=== PATIENT | male | born 1975 | race Caucasian/White ===

== ENCOUNTER 2018-07-13 17:00 | Outpatient (REF) | payer OTHER, SELFPAY ==
[2018-07-13 19:20] LABS: ALT 32 U/L (12-78); AST 6 U/L (15-37); Albumin 3.9 g/dL (3.4-5.0); Alkaline Phosphatase 94 U/L (46-116); Anion Gap 11.3 mmol/L (3-11); BUN 18 mg/dL (7-18); Bilirubin, Total 0.7 mg/dL (0.2-1.0); CO2 26.7 mmol/L (21.0-32.0); CREATININE 1.12 mg/dL (0.70-1.30); Calcium 9.8 mg/dL (8.5-10.1); Chloride 101 mmol/L (98-107); Glucose 321 mg/dL (70-100); Potassium 4.6 mmol/L (3.5-5.1); Sodium 139 mmol/L (136-145); Total Protein 7.5 g/dL (6.4-8.2)
== END 2018-07-13 17:20 ==
LOC: NCHCN 17:00
PROVIDERS: PCP Nurse Practitioner Family; Visit Provider Nurse Practitioner Family
DX: E11.8 Type 2 diabetes mellitus with unspecified complications (principal)
CPT/HCPCS: 80053

== ENCOUNTER 2018-08-10 07:54 | Outpatient (REF) | payer OTHER, SELFPAY ==
[2018-08-10 13:42] LABS: Cholesterol 241 mg/dL (50-200); HDL Cholesterol 27 mg/dL (40-60); Triglyceride 668 mg/dL (30-150)
[2018-08-10 14:04] LABS: LDL CHOLESTEROL 100 mg/dL (<100)
== END 2018-08-10 08:14 ==
LOC: NCHCN 07:54
PROVIDERS: PCP Nurse Practitioner Family; Visit Provider Nurse Practitioner Family
DX: E11.8 Type 2 diabetes mellitus with unspecified complications (principal); Z79.4 Long term (current) use of insulin; E78.5 Hyperlipidemia, unspecified; I10 Essential (primary) hypertension
CPT/HCPCS: 80061; 83721

== ENCOUNTER 2020-07-14 16:27 | Outpatient (REF) | payer BC, SELFPAY ==
[2020-07-14 18:40] LABS: C-Reactive Protein 0.07 mg/dL (0.0-0.3)
[2020-07-14 18:45] LABS: ESR 33 mm/hr (0-15)
[2020-07-15 16:27] LABS: Rheumatoid Factor <8.6 IU/mL (<12.0)
[2020-07-16 14:40] LABS: ANA Interpretation Negative (Negative)
== END 2020-07-14 16:28 | disposition home or self-care (01) ==
LOC: NCHCN 16:27
PROVIDERS: PCP Family Medicine; Visit Provider Nurse Practitioner Family
DX: M13.80 Other specified arthritis, unspecified site (principal); M25.50 Pain in unspecified joint
CPT/HCPCS: 85652; 86038; 86140; 86431

== ENCOUNTER 2021-09-07 12:52 | Emergency (ER) | payer BC, SELFPAY ==
[2021-09-07] VITALS (12 sets, daily range): BP systolic 79–128; BP diastolic 39–80; PULSE 71–108; RESP 15–23; TEMP 36.6; O2SAT 93–98
--- NOTE | 2021-09-07 13:15 | RT.EKG_ITS ---
APPROVED REPORT Exam: Resting ECG Reason for Exam: nausea,vomiting Patient Location: E HR:108 bpm ECG Measurements Heart Rate 108 AXIS LA 169 P 51 QRSd 89 QRS 86 QT 312 T 9 QTc 418 Conclusion Sinus tachycardia...rate> 99. Sinus. Normal axis. No STEMI. I have reviewed and interpreted ECG and agree with software generated interpretation.
[2021-09-07 14:02] LABS: Abs Immature Grans 0.06 10^3/uL (0.0-0.06); Absolute Basophil Count 0.02 10^3/uL (0.0-0.2); Absolute Eosinophil Count 0.13 10^3/uL (0.0-0.7); Absolute Monocyte Count 0.88 10^3/uL (0.1-0.8); Absolute Neutrophil Count 14.18 10^3/uL (1.2-6.7); Basophils % 0.1; Eosinophils % 0.8; HCT 38.6 % (40.0-50.0); HGB 11.7 g/dL (13.5-17.5); Immature Grans % 0.4; MCHC 30.3 % (32.0-36.0); MCV 66 fL (80-95); MPV 10.7 fL (8.0-11.0); Monocytes % 5.5; Neutrophils % 88.2; Platelet Count 284 10^3/uL (130-400); RBC 5.84 10^6/uL (4.36-5.78); RDW 18.7 % (11.8-14.1); RDW-SD 41.1 fL; WBC 16.08 10^3/uL (4.4-10.8)
[2021-09-07] MEDS: Ondansetron 4 MG/2 ML VIAL IVP (14:12)
[2021-09-07] MEDS: Normal Saline 1,000 ML 1000 ML IV ×3 (14:12→17:07)
[2021-09-07 14:21] LABS: Anisocytosis 1+; Diff Comment RBC Morph Reviewed; Hypochromasia 1+
[2021-09-07 14:22] LABS: Microcytosis 2+; Poikilocytes 1+; Polychromasia Present
[2021-09-07 14:28] LABS: ALT 43 U/L (16-63); AST 19 U/L (15-37); Albumin 3.6 g/dL (3.4-5.0); Alkaline Phosphatase 74 U/L (46-116); BUN 36 mg/dL (7-18); Bilirubin, Total 0.7 mg/dL (0.2-1.0); CREATININE 1.7 mg/dL (0.70-1.30); Calcium 9.4 mg/dL (8.5-10.1); Chloride 106 mmol/L (98-107); Estimated GFR 44.21 (mL/min/1.73m2); Glucose 114 mg/dL (74-106); Magnesium 1.9 mg/dL (1.8-2.4); Potassium 5.5 mmol/L (3.5-5.1); Sodium 140 mmol/L (136-145); Total Protein 7.6 g/dL (6.4-8.2); Troponin I < 50 ng/L (<or=60)
--- NOTE | 2021-09-07 14:35 | ED.GENADUL_ITS ---
Discharge Plan Disposition Patient Disposition: HOME Condition: Improving Discharge Details Clinical Impression: Gastroenteritis, Anemia Primary Care Provider: Bandar Hahn ED Provider: Antoni Roque Home Meds and New Rx's Prescriptions: No Action citalopram 40 MG tablet 40 mg PO DAILY enalapril maleate 20 MG tablet 20 mg PO DAILY clopidogrel 75 mg tablet 1 tab PO DAILY Label Comments: TAKE 1 TABLET BY MOUTH ONCE DAILY insulin lispro 100 unit/mL insulin pen 20 - 50 unit SUBCUT .PER MEAL Label Comments: INJECT 20 TO 50 UNITS SUBCUTANEOUSLY DIRECTED UP TO THREE TIMES A DAY BEFORE MEALS. KEEP APPOINTMENT FOR FURTHER REFILLS. Levemir FlexTouch U-100 Insuln 100 unit/mL (3 mL) insulin pen 30 unit SUBCUT .QHS Label Comments: INJECT 30 UNITS SUBCUTANEOUSLY AT BEDTIME Trulicity 1.5 mg/0.5 mL pen injector SUBCUT .WEEKLY Label Comments: INJECT CONTENTS OF 1 SYRINGE SUBCUTANEOUSLY ONCE A WEEK aspirin 81 mg Tablet 81 mg PO .QHS Discharge Instructions Instructions: Gastroenteritis (ED), Anemia (ED) Additional Instructions: With your symptoms it is very important that you stay well-hydrated as this will help improve your lab abnormalities as noted. Feel free to return to the emergency department if you develop significant fever chills, focal or worsening abdominal pain, blood or mucus in your stools, vomiting blood, or intolerance to intake of fluids. We have put in a referral for you to follow-up with your primary care provider for reassessment and recheck of some of your lab abnormalities. Stand Alone Forms: Work Release Referrals: Bandar Hahn [Primary Care Provider] - 3 days Discharge Data Discharge Date/Time-TO BE ENTERED AT DEPARTURE: 09/07/21 19:02 Medical Decision Making <GLENIS Vieyra - Last Filed: 09/07/21 15:54> This is a 45-year-old gentleman, past medical history of RI, insulin-dependent diabetic, on Plavix daily presenting for what he describes as nausea, vomiting, diarrhea that began over the past day or so, questions if he ate bad stirfry. Was seen in the office of his PCP and sent to the ER for further evaluation. Clinically he occasionally dry heaves but otherwise appears well, nontoxic. Plan is to obtain IV access, give IV fluid, Zofran and laboratory values. Given his history of RI and history of diabetes this could be a ACS equivalent although low suspicion. Patient denies history of DKA. Differential is wide and includes DKA, food poisoning, infectious process, ACS, hypoglycemia, etc. Initial laboratory values reveal a white blood cell count of 16.08. Abdomen is soft, nontender, he remains afebrile. Question of this is secondary to vomiting. Hemoglobin 11.7 hematocrit 38.6, no previous for comparison. He denies black tarry stools or bright red blood in his stools. Platelet count 284. Sodium 140, potassium 5.5, EKG without evidence of hyperkalemia. BUN 36 creatinine 1.7, GFR 44.21, well below his baseline. Consider DONAL versus dehydration. Glucose appropriate at 114. Anion gap of 8, low suspicion for DKA. Magnesium 1.9 LFTs unremarkable, troponin less than 50, COVID-negative. Given his leukocytosis we are awaiting a urinalysis and I will add on a chest x- ray Patient to receive a second dose of Zofran and a total of 3 L normal saline. At that time I believe a delta troponin, repeat CBC and CMP are indicated. Based upon repeat laboratory values and reassessment disposition of admission for potential DONAL versus discharge. Medical Records Medical records reviewed: Yes I reviewed the patient's medical records. Lab Data Lab results reviewed: Yes I reviewed the patient's lab results. Labs: Laboratory Tests Range/Units 09/07/21 09/07/21 09/07/21 13:50 13:50 14:40 WBC (4.4-10.8) 10^3/uL 16.08 H RBC (4.36-5.78) 10^6/uL 5.84 H Hgb (13.5-17.5) g/dL 11.7 L Hct (40.0-50.0) % 38.6 L MCV (80-95) fL 66 L MCH (27.0-33.0) pg 20.0 L MCHC (32.0-36.0) % 30.3 L RDW (11.8-14.1) % 18.7 H Plt Count (130-400) 10^3/uL 284 MPV (8.0-11.0) fL 10.7 Immature Gran % 0.4 Neutrophils % 88.2 Lymphocytes % 5.0 Monocytes % 5.5 Eosinophils % 0.8 Basophils % 0.1 Nucleated RBC % (0.0-0.3) % 0.0 Absolute Neutrophils (1.2-6.7) 10^3/uL 14.18 H Absolute Lymphocytes (1.2-3.4) 10^3/uL 0.80 L Absolute Monocytes (0.1-0.8) 10^3/uL 0.88 H Absolute Eosinophils (0.0-0.7) 10^3/uL 0.13 Absolute Basophils (0.0-0.2) 10^3/uL 0.02 RBC Morphology See Below Polychromasia Present Hypochromasia 1+ Poikilocytosis 1+ Anisocytosis 1+ Microcytosis 2+ Sodium (136-145) mmol/L 140 Potassium (3.5-5.1) mmol/L 5.5 H Chloride (98-107) mmol/L 106 Carbon Dioxide (21.0-32.0) mmol/L 26.0 Anion Gap (3-11) mmol/L 8.0 BUN (7-18) mg/dL 36 H Creatinine (0.70-1.30) mg/dL 1.7 H Estimated GFR/1.73 m2 (mL/min/1.73m2) 44.21 Glucose (74-106) mg/dL 114 H Calcium (8.5-10.1) mg/dL 9.4 Magnesium (1.8-2.4) mg/dL 1.9 Total Bilirubin (0.2-1.0) mg/dL 0.7 AST (15-37) U/L 19 ALT (16-63) U/L 43 Alkaline Phosphatase (46-116) U/L 74 Troponin I (<or=60) ng/L < 50 Total Protein (6.4-8.2) g/dL 7.6 Albumin (3.4-5.0) g/dL 3.6 COVID-19 Source Nasal/Nares SARS-CoV-2 (PCR) (Negative) Negative ECG Data Attestation: I personally reviewed and interpreted this ECG (s) as follows: Interpretation: Please see official report by Dr. Quiroz. Sinus tachycardia, ventricular rate of 108, no STEMI <Antoni Roque NP - Last Filed: 09/12/21 12:49> This is a 45-year-old gentleman, past medical history of RI, insulin-dependent diabetic, on Plavix daily presenting for what he describes as nausea, vomiting, diarrhea that began over the past day or so, questions if he ate bad stirfry. Was seen in the office of his PCP and sent to the ER for further evaluation. Clinically he occasionally dry heaves but otherwise appears well, nontoxic. Plan is to obtain IV access, give IV fluid, Zofran and laboratory values. Given his history of RI and history of diabetes this could be a ACS equivalent although low suspicion. Patient denies history of DKA. Differential is wide and includes DKA, food poisoning, infectious process, ACS, hypoglycemia, etc. Initial laboratory values reveal a white blood cell count of 16.08. Abdomen is soft, nontender, he remains afebrile. Question of this is secondary to vomiting. Hemoglobin 11.7 hematocrit 38.6, no previous for comparison. He denies black tarry stools or bright red blood in his stools. Platelet count 284. Sodium 140, potassium 5.5, EKG without evidence of hyperkalemia. BUN 36 creatinine 1.7, GFR 44.21, well below his baseline. Consider DONAL versus dehydration. Glucose appropriate at 114. Anion gap of 8, low suspicion for DKA. Magnesium 1.9 LFTs unremarkable, troponin less than 50, COVID-negative. Given his leukocytosis we are awaiting a urinalysis and I will add on a chest x- ray Patient to receive a second dose of Zofran and a total of 3 L normal saline. At that time I believe a delta troponin, repeat CBC and CMP are indicated. Based upon repeat laboratory values and reassessment disposition of admission for potential DONAL versus discharge. Signout received from GLENIS Martinez. Please see above note for HPI, review of systems, and pertinent past medical history. When I received patient he was receiving second liter of normal saline but stating improvement of symptoms and has urinated multiple times. We will plan on repeating troponin, CBC and CMP with reassessment of patient discussed disposition plan after repeat labs. Repeat labs shows slight improvement as white count with WBC normal at 15.76, hemoglobin is low at 10.9 but patient denies any signs or symptoms or source of bleeding CMP was slightly improved with potassium of 5.2, BUN of 34, creatinine 1.5, and GFR now 51.08 all other labs are nondiagnostic and not worrisome. Patient reassessed and continues to deny any significant or focal abdominal pain, has been able to tolerate p.o. intake, and is requesting to go home. Patient does state though that he has started having some watery diarrhea since being here. At this time patient is appearing well enough to go home but did discuss risk versus benefit of antibiotics and admission which I do not feel is needed at this time. I will send patient home with single bottle of Zofran. Given though that patient does have significant laboratory abnormalities including anemia will place patient on follow-up list to follow-up with primary care provider preferably later this week for reassessment and possible repeat of labs. After discussion of diagnosis and plan of care patient has no further needs, questions, or concerns and states clear understanding to return to the emergency department for any worsening symptoms. This documentation was generated using [employer] dictation system, please disregard any oddities of phrase or misspellings. Lab Data Lab results reviewed: Yes I reviewed the patient's lab results. HPI <GLENIS Vieyra - Last Filed: 09/07/21 15:54> General Mode of arrival: ambulatory . Date/Time Provider Initiated Documentation: 09/07/21 13:42 . Limitations to Documentation: no limitations . Information obtained by: patient . History of Present Illness 45 year old M presents to the emergency department with the chief complaint of N/V/D, described as moderate, with intensity rated at 4. Quality is described as other (cramping), and is localized to the abdomen. Patient reports no radiation. Patient started experiencing this day(s) (1) and it has been constant. No relieving factors improve symptom(s), No exacerbating factors reported . Patient notes nausea/vomiting and other (Concern for dehydration); denies chest pain. Patient did receive the following treatments prior to arrival, none Related Data Home Medications Medication Instructions Recorded Confirmed citalopram 40 mg tablet 40 mg PO DAILY 03/06/14 09/07/21 enalapril maleate 20 mg tablet 20 mg PO DAILY 03/06/14 09/07/21 aspirin 81 mg tablet 81 mg PO .QHS 09/07/21 09/07/21 clopidogrel 75 mg tablet 1 tab PO DAILY 09/07/21 09/07/21 dulaglutide 1.5 mg/0.5 mL device subcut .WEEKLY 09/07/21 subcutaneous pen injector (Trulicity) insulin detemir U-100 100 unit/mL 30 unit subcut .QHS 09/07/21 09/07/21 (3 mL) subcutaneous pen (Levemir FlexTouch U-100 Insulin) insulin lispro 100 unit/mL 20 - 50 unit subcut .PER MEAL 09/07/21 09/07/21 subcutaneous pen Allergies Allergy/AdvReac Type Severity Reaction Status Date / Time No Known Allergies Allergy Unverified 09/07/21 13:30 General Stated Complaint: Nausea/Vomit/Diar KRISTA: 3 Review of Systems <GLENIS Vieyra - Last Filed: 09/07/21 15:54> Constitutional Constitutional: Reports fatigue, Denies fever(s), Denies headache(s) and Denies weakness ENT Ears, Nose, Mouth, and Throat: Denies headache(s) and Denies neck pain Cardiovascular Cardiovascular: Denies chest pain and Denies dyspnea Respiratory Respiratory: Denies cough and Denies dyspnea Gastrointestinal Gastrointestinal: Reports abdominal pain, Reports diarrhea, Reports nausea and Reports vomiting Genitourinary Genitourinary: Denies dysuria Musculoskeletal Musculoskeletal: Denies back pain and Denies neck pain Integumentary/Breasts Skin/Breast: Denies rash Neurologic Neurologic: Denies headache(s) and Denies weakness Endocrine Endocrine: Reports fatigue Hematologic/Lymphatic Hematologic/Lymphatic: Denies easy bleeding and Denies easy bruising PFSH <GLENIS Vieyra - Last Filed: 09/07/21 15:54> All Active Problems (Updated 09/07/21 @ 18:49 by Antoni Roque NP) Gastroenteritis (Acute) Anemia (Chronic) Social History Smoking/Tobacco Use Status: Former Tobacco Use Smoking risk assessment performed?: Yes Drug use: Never Exam <GLENIS Vieyra - Last Filed: 09/07/21 15:54> Const General: cooperative, healthy appearing, no acute distress and other (Occasional dry heave) Orientation: alert, awake and oriented x3 HENMT Head: normal to inspection, normocephalic and atraumatic Face and sinus: normal facial exam Mouth: moist mucous membranes abnormal (Dry) Throat: posterior oropharynx normal Eyes General: appearance normal, both eyes and all related structures Conjunctivae: conjunctivae normal Neck Neck: normal visual inspection, full ROM, no meningeal signs, trachea midline and supple Resp Effort & Inspection: normal respiratory effort and able to speak in complete sentences Auscultation: clear to auscultation bilaterally Cardio Rate: tachycardic (102) Rhythm: regular rhythm GI Inspection: normal to inspection Palpation: soft, not firm, no guarding, no pulsatile masses and tender Auscultation: normal bowel sounds Back/Spine/Pelvis Back: No back tenderness Skin General skin exam: no rashes or lesions noted Neuro General: patient alert, patient awake, moves all extremities and no focal motor deficits Cognition: normal cognition Speech: speech normal Gait: normal gait Motor: muscle tone normal throughout Sensory Exam: no sensory deficits noted Extrem General: normal to inspection, full ROM, capillary refill normal, no pedal edema and no calf tenderness Psych Appearance: grossly normal Mental Status: mental status grossly normal Course <GLENIS Vieyra - Last Filed: 09/07/21 15:54> Vital Signs Vital signs: Vital Signs Temperature 36.6 C 09/07/21 13:16 Pulse 105 H 09/07/21 13:16 Respiratory Rate 16 09/07/21 13:16 Blood Pressure 96/64 L 09/07/21 13:16 Pulse Oximetry 98 09/07/21 13:16 Temperature 36.6 C 09/07/21 13:16 Temperature Source Temporal Artery Scan 09/07/21 13:16 Pulse 101 H 09/07/21 14:11 Pulse 101 H 09/07/21 14:11 Respiratory Rate 09/07/21 14:11 Respiratory Effort 09/07/21 13:16 Blood Pressure 128/80 09/07/21 14:11 Blood Pressure Mean 89 09/07/21 14:11 Blood Pressure Position Sitting 09/07/21 13:16 Pulse Oximetry 96 09/07/21 13:31 Oxygen Delivery Method Room Air 09/07/21 13:16 Oxygen Flow Rate 0 09/07/21 13:16 Pain Level 0 09/07/21 13:16 Lab/Test Results Lab/Test Results: Laboratory Tests Range/Units 09/07/21 09/07/21 13:50 13:50 WBC (4.4-10.8) 10^3/uL 16.08 H RBC (4.36-5.78) 10^6/uL 5.84 H Hgb (13.5-17.5) g/dL 11.7 L Hct (40.0-50.0) % 38.6 L MCV (80-95) fL 66 L MCH (27.0-33.0) pg 20.0 L MCHC (32.0-36.0) % 30.3 L RDW (11.8-14.1) % 18.7 H Plt Count (130-400) 10^3/uL 284 MPV (8.0-11.0) fL 10.7 Immature Gran % 0.4 Neutrophils % 88.2 Lymphocytes % 5.0 Monocytes % 5.5 Eosinophils % 0.8 Basophils % 0.1 Nucleated RBC % (0.0-0.3) % 0.0 Absolute Neutrophils (1.2-6.7) 10^3/uL 14.18 H Absolute Lymphocytes (1.2-3.4) 10^3/uL 0.80 L Absolute Monocytes (0.1-0.8) 10^3/uL 0.88 H Absolute Eosinophils (0.0-0.7) 10^3/uL 0.13 Absolute Basophils (0.0-0.2) 10^3/uL 0.02 RBC Morphology See Below Polychromasia Present Hypochromasia 1+ Poikilocytosis 1+ Anisocytosis 1+ Microcytosis 2+ Sodium (136-145) mmol/L 140 Potassium (3.5-5.1) mmol/L 5.5 H Chloride (98-107) mmol/L 106 Carbon Dioxide (21.0-32.0) mmol/L 26.0 Anion Gap (3-11) mmol/L 8.0 BUN (7-18) mg/dL 36 H Creatinine (0.70-1.30) mg/dL 1.7 H Estimated GFR/1.73 m2 (mL/min/1.73m2) 44.21 Glucose (74-106) mg/dL 114 H Calcium (8.5-10.1) mg/dL 9.4 Magnesium (1.8-2.4) mg/dL 1.9 Total Bilirubin (0.2-1.0) mg/dL 0.7 AST (15-37) U/L 19 ALT (16-63) U/L 43 Alkaline Phosphatase (46-116) U/L 74 Troponin I (<or=60) ng/L < 50 Total Protein (6.4-8.2) g/dL 7.6 Albumin (3.4-5.0) g/dL 3.6 Sign Out <GLENIS Vieyra - Last Filed: 09/07/21 15:54> Sign Out Data: Sign Out Comment: Insulin-dependent diabetic, history of RI, presenting for nausea, vomiting, diarrhea. Laboratory values reveal DONAL, leukocytosis. Awai ting urinalysis and chest x-ray. Patient received 2 doses of IV Zofran and a total of 3 L IV fluid, will need to recheck CBC, CMP, and then discuss final disposition Home versus admission observation. Last updated by Nolan Hernández PA at 09/07/21 15:55
[2021-09-07 14:41] LABS: Source Nasal/Nares
[2021-09-07 15:35] LABS: COVID-19 PCR Negative (Negative)
--- NOTE | 2021-09-07 15:45 | DI.RAD_ITS ---
Exam(s) XR CHEST 2V PA LATERAL EXAM: XR CHEST 2V PA LATERAL CLINICAL HISTORY: Leukocytosis. TECHNIQUE: 2D digital imaging was performed. COMPARISON: No exams were available for comparison FINDINGS: 2 views: Heart size is normal. The mediastinum is not widened. Lungs are clear. No infiltrates nor pleural effusions. IMPRESSION: No acute pulmonary findings. DATA REPOSITORY: RADIATION DOSE DELIVERED:
[2021-09-07 16:32] LABS: Bilirubin Negative (Negative); Blood Small (Negative); Clarity Clear (Clear); Glucose Negative (Negative); Ketones Negative (Negative); Leukocyte Esterase Negative (Negative); Nitrite Negative (Negative); Specific Gravity >= 1.030 (1.005-1.025); Urobilinogen 0.2 EU/dL (Up TO 0.2); pH 5.5 (5-8)
[2021-09-07 16:46] LABS: Bacteria Negative HPF (Negative); Epithelial Cells Negative HPF (Negative); WBC 0-2 HPF (0-5)
[2021-09-07 16:47] LABS: C & S Indicated? No; Crystals Few Amorphous HPF (Negative); Mucus Heavy (Negative)
[2021-09-07 17:45] LABS: Abs Immature Grans 0.05 10^3/uL (0.0-0.06); Absolute Lymphocyte Count 0.65 10^3/uL (1.2-3.4); Absolute Neutrophil Count 14.15 10^3/uL (1.2-6.7); Basophils % 0.1; Eosinophils % 0.8; HCT 35.7 % (40.0-50.0); HGB 10.9 g/dL (13.5-17.5); Immature Grans % 0.3; Lymphocytes % 4.1; MCH 20.1 pg (27.0-33.0); MCHC 30.5 % (32.0-36.0); MCV 66 fL (80-95); MPV 10.8 fL (8.0-11.0); Monocytes % 4.9; Neutrophils % 89.8; Platelet Count 271 10^3/uL (130-400); RBC 5.41 10^6/uL (4.36-5.78); RDW 18.4 % (11.8-14.1); RDW-SD 41.9 fL; WBC 15.76 10^3/uL (4.4-10.8)
[2021-09-07 17:46] LABS: Absolute Basophil Count 0.02 10^3/uL (0.0-0.2); Absolute Eosinophil Count 0.13 10^3/uL (0.0-0.7); Absolute Monocyte Count 0.77 10^3/uL (0.1-0.8)
[2021-09-07 18:03] LABS: ALT 38 U/L (16-63); AST 14 U/L (15-37); Albumin 3.2 g/dL (3.4-5.0); Alkaline Phosphatase 62 U/L (46-116); Anion Gap 6.3 mmol/L (3-11); BUN 34 mg/dL (7-18); Bilirubin, Total 0.6 mg/dL (0.2-1.0); CO2 24.7 mmol/L (21.0-32.0); CREATININE 1.5 mg/dL (0.70-1.30); Calcium 8.3 mg/dL (8.5-10.1); Chloride 109 mmol/L (98-107); Estimated GFR 51.08 (mL/min/1.73m2); Glucose 98 mg/dL (74-106); Potassium 5.2 mmol/L (3.5-5.1); Sodium 140 mmol/L (136-145); Total Protein 6.7 g/dL (6.4-8.2); Troponin I < 50 ng/L (<or=60)
--- NOTE | 2021-09-07 18:51 | NUR.NOTE ---
Referral faxed to PCP or reassessment and recheck labs this week. Nursing Note:
[2021-09-07] MEDS: Ondansetron O.D.T. 4 MG TABEF, 3 TABS/BTL PO (19:03)
== END 2021-09-07 19:02 | disposition home or self-care (01) ==
PROVIDERS: Physician Assistant; Emergency Provider Nurse Practitioner Family; PCP Family Medicine
DX: K52.9 Noninfective gastroenteritis and colitis, unspecified (principal); D64.9 Anemia, unspecified; D72.829 Elevated white blood cell count, unspecified; R11.2 Nausea with vomiting, unspecified; Z20.822 Contact with and (suspected) exposure to COVID-19; E11.9 Type 2 diabetes mellitus without complications; Z79.4 Long term (current) use of insulin
CPT/HCPCS: 36416; 80053; 82962; 87635; 93005; 96361; 96374; 99284; 71046; 81003; 81015; 83735; 84484; 85025; 93010; J2405

== ENCOUNTER 2021-11-15 02:56 | Outpatient (CLI) | payer BC, SELFPAY ==
[2021-11-17 09:13] LABS: HBs Antibody, Quant 3.3 mIU/mL (See Note); Hepatitis B Surface Ab Negative (See Note)
[2021-11-17 10:27] LABS: Measles IgG Antibody Positive (See Note); Mumps Antibody IgG Positive (See Note); Rubella IgG Ab (UVM) Positive (See Note); Varicella IgG Antibody Positive (See Note)
[2021-11-17 11:44] LABS: TB Interpretation Negative (Negative)
== END 2021-11-15 02:57 | disposition home or self-care (01) ==
LOC: LBO 02:56
PROVIDERS: PCP Family Medicine; Visit Provider Nurse Practitioner Family
DX: Z02.1 Encounter for pre-employment examination (principal); Z11.59 Encounter for screening for other viral diseases; Z11.1 Encounter for screening for respiratory tuberculosis
CPT/HCPCS: 36415; 86706; 86787; 86480; 86735; 86762; 86765

== ENCOUNTER 2022-08-17 17:10 | Outpatient (REF) | payer BC, SELFPAY ==
[2022-08-17 19:38] LABS: HCT 38.1 % (40.0-50.0); HGB 11.4 g/dL (13.5-17.5); MCH 20.6 pg (27.0-33.0); MCHC 29.9 % (32.0-36.0); MCV 69 fL (80-95); MPV 11.7 fL (8.0-11.0); Platelet Count 279 10^3/uL (130-400); RBC 5.53 10^6/uL (4.36-5.78); RDW-SD 44.2 fL; WBC 10.26 10^3/uL (4.4-10.8)
[2022-08-17 19:58] LABS: Anion Gap 12.8 mmol/L (3-11); BUN 39 mg/dL (7-18); CO2 23.2 mmol/L (21.0-32.0); CREATININE 2.1 mg/dL (0.70-1.30); Calcium 8.5 mg/dL (8.5-10.1); Chloride 104 mmol/L (98-107); Estimated GFR 39.07 (mL/min/1.73m2); Glucose 361 mg/dL (74-106); Potassium 4.9 mmol/L (3.5-5.1); Sodium 140 mmol/L (136-145)
[2022-08-17 20:19] LABS: Iron 57 ug/dL (65-175); Total Iron Binding Capacity 310 ug/dL (250-450); Transferrin Sat 18 % (20-55)
== END 2022-08-17 17:11 | disposition home or self-care (01) ==
LOC: NCHCN 17:10
PROVIDERS: PCP Family Medicine; Visit Provider Family Medicine
DX: N28.9 Disorder of kidney and ureter, unspecified (principal); Z86.39 Personal history of other endocrine, nutritional and metabolic disease; D64.9 Anemia, unspecified
CPT/HCPCS: 80048; 85027; 83540; 83550

== ENCOUNTER 2023-03-23 12:28 | Outpatient (REF) | payer BC, SELFPAY ==
[2023-03-23 16:49] LABS: COMMENT (LAB VIEW ONLY) 109.92 mg/dL
== END 2023-03-23 12:29 | disposition home or self-care (01) ==
LOC: NCHCN 12:28
PROVIDERS: PCP Family Medicine; Visit Provider Family Medicine
DX: N28.9 Disorder of kidney and ureter, unspecified (principal)
CPT/HCPCS: 82043; 82570

== ENCOUNTER 2023-05-09 18:08 | Outpatient (REF) | payer BC, SELFPAY ==
[2023-05-09 19:30] LABS: HCT 42.2 % (40.0-50.0); HGB 12.2 g/dL (13.5-17.5); MCH 20.4 pg (27.0-33.0); MCHC 28.9 % (32.0-36.0); Platelet Count 289 10^3/uL (130-400); RBC 5.99 10^6/uL (4.36-5.78); RDW-SD 44.3 fL; WBC 10.03 10^3/uL (4.4-10.8)
[2023-05-09 19:43] LABS: Iron 53 ug/dL (65-175); Total Iron Binding Capacity 355 ug/dL (250-450); Transferrin Sat 15 % (20-55)
[2023-05-09 19:51] LABS: Hemoglobin A1C 12.2 % (<5.7)
[2023-05-09 20:07] LABS: MCV 71 fL (80-95); RDW 19.1 % (11.8-14.1)
[2023-05-09 20:48] LABS: ALT 35 U/L (16-63); AST 17 U/L (15-37); Albumin 3.6 g/dL (3.4-5.0); Alkaline Phosphatase 114 U/L (46-116); Anion Gap 12.1 mmol/L (3-11); BUN 43 mg/dL (7-18); Bilirubin, Total 0.5 mg/dL (0.2-1.0); CO2 23.9 mmol/L (21.0-32.0); CREATININE 2.3 mg/dL (0.70-1.30); Calcium 9.5 mg/dL (8.5-10.1); Chloride 104 mmol/L (98-107); Estimated GFR 34.81 (mL/min/1.73m2); Ferritin 172 ng/mL (26-388); Glucose 340 mg/dL (74-106); Potassium 5.6 mmol/L (3.5-5.1); Sodium 140 mmol/L (136-145); Total Protein 7.5 g/dL (6.4-8.2); Vitamin B12 613 pg/mL (193-986)
== END 2023-05-09 18:09 | disposition home or self-care (01) ==
LOC: NCHCN 18:08
PROVIDERS: PCP Family Medicine; Visit Provider Family Medicine
DX: E11.9 Type 2 diabetes mellitus without complications (principal)
CPT/HCPCS: 80053; 85027; 82607; 82728; 83036; 83540; 83550

== ENCOUNTER 2023-06-20 14:49 | Outpatient (REF) | payer BC, SELFPAY ==
[2023-06-20 15:15] LABS: Abs Immature Grans 0.07 10^3/uL (0.0-0.06); Absolute Basophil Count 0.07 10^3/uL (0.0-0.2); Absolute Eosinophil Count 0.25 10^3/uL (0.0-0.7); Absolute Lymphocyte Count 1.53 10^3/uL (1.2-3.4); Absolute Monocyte Count 0.57 10^3/uL (0.1-0.8); Absolute Neutrophil Count 5.65 10^3/uL (1.2-6.7); Basophils % 0.9; Eosinophils % 3.1; HCT 36.4 % (40.0-50.0); HGB 10.7 g/dL (13.5-17.5); Immature Grans % 0.9; Lymphocytes % 18.8; MCH 20.4 pg (27.0-33.0); MCHC 29.4 % (32.0-36.0); MCV 69 fL (80-95); MPV 10.4 fL (8.0-11.0); Neutrophils % 69.3; Platelet Count 379 10^3/uL (130-400); RBC 5.25 10^6/uL (4.36-5.78); WBC 8.14 10^3/uL (4.4-10.8)
[2023-06-20 15:31] LABS: Anisocytosis 1+; Diff Comment RBC Morph Reviewed; Hypochromasia 1+; Microcytosis 2+
[2023-06-20 15:32] LABS: Polychromasia Present
[2023-06-20 16:03] LABS: Anion Gap 5.8 mmol/L (3-11); BUN 32 mg/dL (7-18); CO2 25.2 mmol/L (21.0-32.0); CREATININE 1.9 mg/dL (0.70-1.30); Chloride 106 mmol/L (98-107); Estimated GFR 43.79 (mL/min/1.73m2); Ferritin 145 ng/mL (26-388); Glucose 165 mg/dL (74-106); Magnesium 2.4 mg/dL (1.8-2.4); Potassium 4.5 mmol/L (3.5-5.1); Sodium 137 mmol/L (136-145)
[2023-06-20 16:55] LABS: Iron 55 ug/dL (65-175); Total Iron Binding Capacity 299 ug/dL (250-450); Transferrin Sat 18 % (20-55)
== END 2023-06-20 14:50 | disposition home or self-care (01) ==
LOC: NCHCN 14:49
PROVIDERS: PCP Family Medicine; Visit Provider Student in an Organized Health Care Education/Training Program
DX: I10 Essential (primary) hypertension (principal); D64.9 Anemia, unspecified
CPT/HCPCS: 80048; 82728; 83540; 83550; 83735; 85025

== ENCOUNTER 2023-07-20 08:57 | Outpatient (REF) | payer BC, SELFPAY ==
[2023-07-20 16:15] LABS: Bilirubin Negative (Negative); Blood Trace-lysed (Negative); Clarity Clear (Clear); Glucose 500 mg/dL (Negative); Ketones Negative (Negative); Leukocyte Esterase Negative (Negative); Nitrite Negative (Negative); Urobilinogen 0.2 mg/dL (Up to 0.2); pH 5.5 (5-8)
[2023-07-20 16:28] LABS: Bacteria Negative HPF (Negative); C & S Indicated? No; Crystals Negative HPF (Negative); Epithelial Cells Negative HPF (Negative); Mucus Trace (Negative); RBC 0-2 HPF (0-2); WBC Negative HPF (0-5)
== END 2023-07-20 08:58 | disposition home or self-care (01) ==
LOC: NCHCN 08:57
PROVIDERS: PCP Family Medicine; Visit Provider Student in an Organized Health Care Education/Training Program
DX: R80.9 Proteinuria, unspecified (principal)
CPT/HCPCS: 81003; 81015

== ENCOUNTER 2024-01-04 13:02 | Outpatient (REF) | payer BC, SELFPAY ==
--- OUTSIDE RECORDS SUMMARY | 2024-01-04 13:05 | XMS_ITS | Continuity of Care Document ---
Author Organization [facility] Address [address] [place] [address] Care Team Providers Care [employer]ive [employer] Name Role Phone Unavailable, Physician Primary Care Physician Un available Encounter [facility] NBR [id number] Date(s): 03/24/22 - 03/24/[address] [address]- Discharge Disposition: Home or Self Care Attending Physician: Laureen Resendez MD Admitting Physician: Laureen Resendez MD Referring Physician: Laureen Resendez MD Allergies, Adverse Reactions, Alerts Substance Reaction Severity Status melatonin Restless legs syndrome Unknown Activ e Diphendramine HCL Hyperactivity level Unknown Act nomi Assessment and Plan Future Appointments Medications aspirin 81 mg oral capsule 1 Unknown, 0 Refill(s) Start Date: 03/21/22 Status: Ordered aspirin 81 mg oral tablet, chewable 81 mg = 1 tab, Chewed, every evening Start Date: 03/11/22 Status: Ordered atorvastatin 40 mg oral tablet 40 mg = 1 tab, Oral, every evening Start Date: 03/11/22 Status: Ordered citalopram 10 mg oral tablet 10 mg = 1 tab, Oral, every evening Start Date: 03/11/22 Status: Ordered clopidogrel 75 mg oral tablet 75 mg = 1 tab, Oral, every evening Start Date: 03/11/22 Status: Ordered gabapentin 300 mg oral capsule 600 mg = 2 cap, Oral, every evening Start Date: 03/11/22 Status: Ordered HumaLOG KwikPen 100 units/mL injectable solution 0 Refill(s) Start Date: 03/21/22 Status: Ordered ibuprofen 200 mg oral tablet 600 mg = 3 tab, Oral, every 6 hr, PRN as needed for pain Start Date: 03/11/22 Status: Ordered Insulin Lispro KwikPen 100 units/mL injectable solution Subcutaneous, TID(AC), 20-50 units per SLIDING SCALE Start Date: 03/11/22 Status: Ordered Levemir FlexTouch 100 units/mL subcutaneous solution 30 units =, Subcutaneous, every evening Start Date: 03/11/22 Status: Ordered lisinopril 10 mg oral tablet 10 mg = 1 tab, Oral, every evening Start Date: 03/11/22 Status: Ordered metoprolol succinate 50 mg oral tablet, extended release 1 Unknown, 0 Refill(s) Start Date: 03/21/22 Status: Ordered Tylenol Extra Strength 500 mg oral tablet 1,000 mg = 2 tab, Oral, every 6 hr, PRN as needed for pain Start Date: 03/11/22 Status: Ordered Problem List Condition Confirmation Course Effective Dates Status H ealth Status Informant Anemia Confirmed Active Cholecystitis, chronic Confirmed Active COVID-19 Confirmed Active Diabetes Confirmed Active High blood pressure Confirmed Active Impairment of balance Confirmed Active Heart attack 1 Confirmed 2019 Active Sensorineural hearing loss of left ear with normal hearing on right side Confirmed Active Sudden sensorineural hearing loss Confirmed Active 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1 % *HI* (03/24/22 10:02 AM) BUN [8-26 mg/dL] 30 mg/dL *HI* (03/24/22 10:02 AM) Glucose Level [74-106 mg/dL] 265 mg/dL *HI* (03/24/22 10:02 AM) Potassium Level [3.5-5.1 mmol/L] 4.8 mmo l/L (03/24/22 10:02 AM) Baso Absolute [0.0-0.2 K/mcL] 0.1 K/mcL (03/24/22 10:02 AM) MCV [80.0-99.0 fL] 68.5 fL *LOW* (03/24/22 10:02 AM) RBC Morph [Normal] Abnormal *ABN* (03/24/22 10:02 AM) AST [15-41 IntlUnit/L] 20 IntlUnit/L (03/24/22 10:02 AM) ALT [17-63 IntlUnit/L] 29 IntlUnit/L (03/24/22 10:02 AM) MCHC [32.0-36.0 g/dL] 29.5 g/dL *LOW* (03/24/22 10:02 AM) Osmolality [275-295 mOsm/kg] 284 mOsm/kg (03/24/22 10:02 AM) Sodium Level [134-143 mmol/L] 134 mmol/L (03/24/22 10:02 AM) Lymph Absolute [1.2-3.4 K/mcL] 1.5 K/mcL (03/24/22 10:02 AM) Hct [37.0-52.0 %] 36.9 % *LOW* (03/24/22 10:02 AM) Microcyte 2+ *ABN* (03/24/22 10:02 AM) Hypochromia 1+ *ABN* (03/24/22 10:02 AM) Calcium Level [8.9-10.3 mg/dL] 9.1 mg/dL (03/24/22 10:02 AM) Sanborn Absolute [0.1-0.6 K/mcL] 0.6 K/mcL (03/24/22 10:02 AM) Albumin Level [3.5-5.0 g/dL] 3.3 g/dL *LOW* (03/24/22 10:02 AM) Protein Total [6.5-8.1 g/dL] 6.5 g/dL (03/24/22 10:02 AM) MCH [27.0-31.0 pg] 20.2 pg *LOW* (03/24/22 10:02 AM) Neutro Absolute [1.4-6.5 K/mcL] 6.7 K/mc L *HI* (03/24/22 10:02 AM) Bilirubin Total [0.2-1.2 mg/dL] 0.5 mg/d L (03/24/22 10:02 AM) Hgb [12.0-18.0 g/dL] 10.9 g/dL *LOW* (03/24/22 10:02 AM) Alk Phos [38-130 IntlUnit/L] 82 IntlUnit /L (03/24/22 10:02 AM) MPV [7.4-10.4 fL] 11.3 fL *HI* (03/24/22 10:02 AM) Platelets [130-400 K/mcL] 338 K/mcL (03/24/22 10:02 AM) CO2 [22-32 mmol/L] 27 mmol/L (03/24/22 10:02 AM) Eos Absolute [0.0-0.2 K/mcL] 0.4 K/mcL *HI* (03/24/22 10:02 AM) Chloride Level [98-111 mmol/L] 101 mmol/ L (03/24/22 10:02 AM) RDW-CV [11.5-14.5 %] 18.6 % *HI* (03/24/22 10:02 AM) A/G Ratio 1.0 *NA* (03/24/22 10:02 AM) BUN/Creat Ratio [8.0-20.0] 21.0 *HI* (03/24/22 10:02 AM) Globulin 3.2 *NA* (03/24/22 10:02 AM) Imm Gran Absolute 0.04 *NA* (03/24/22 10:02 AM) Imm Gran Auto [0.0-0.5 %] 0.4 % (03/24/22 10:02 AM) Anisocyte 2+ (03/24/22 10:02 AM) Creatinine Level [0.61-1.24 mg/dL] 1.43 mg/dL *HI* (03/24/22 10:02 AM) Plt Estimation Normal (03/24/22 10:02 AM) Anion Gap [3.0-12.0] 6.0 (03/24/22 10:02 AM) Eos, Auto [0.00-3.00 %] 4.10 % *HI* (03/24/22 10:02 AM) eGFR CKD-EPI [>=60 mL/min/1.73 m2] 62 mL /min/1.73 m2 (03/24/22 10:02 AM) Social History Social History Type Response Tobacco Former tobacco user Tobacco Use:. 10-15 cigarettes a day per day. 7 year(s). Sex Patient Care team information Personnel Name: Unavailable, Physician
--- OUTSIDE RECORDS SUMMARY | 2024-01-04 13:05 | XMS_ITS | Continuity of Care Document ---
Author Organization [facility] Ambulatory Clinics Address [address] [place] [address] Care Team Providers Care Management Technician Name Role Phone MARIBETH BARKER MD Primary Care Physician Encounter [facility] NBR [id number] Date(s): 10/04/22 - 10/04/22 [facility] [address], [place] [address] Encounter Diagnosis Pain, dental(Discharge Diagnosis) - 10/04/22 Discharge Disposition: Home or Self Care Attending Physician: Kimberly Ga PA-C Allergies, Adverse Reactions, Alerts Substance Reaction Severity Status melatonin Restless legs syndrome Unknown Activ e Diphendramine HCL Hyperactivity level Unknown Act nomi Functional Status 10/04/22 Other exposure to Infectious Disease Non e Medications !-Zofran ODT 4 mg oral tablet, disintegrating 4 mg = 1 tab, Oral, 6 times per day, PRN as needed for nausea/vomiting, # 16 tab, 0 Refill(s), Pharmacy: [id number], 177, cm, 07/08/22 14:39:00 EDT, Height/Length Dosing, 117.93, kg, 07/08/22 14:39:00 EDT, Weight Dosing Start Date: 07/08/22 Status: Ordered amoxicillin 500 mg oral capsule 500 mg = 1 cap, Oral, every 12 hr, # 20 cap, 0 Refill(s), Pharmacy: [id number], 177, cm,07/08/22 14:39:00 EDT, Height/Length Dosing, 117.93, kg, 07/08/22 14:39:00 EDT, Weight Dosing Start Date: 10/04/22 Status: Ordered aspirin 81 mg oral tablet, chewable 81 mg = 1 tab, Chewed, every evening Start Date: 03/11/22 Status: Ordered atorvastatin 40 mg oral tablet 40 mg = 1 tab, Oral, every evening Start Date: 03/11/22 Status: Ordered citalopram 10 mg oral tablet 10 mg = 1 tab, Oral, every evening Start Date: 03/11/22 Status: Ordered Farxiga 5 mg oral tablet 5 mg = 1 tab, Oral, Daily Start Date: 07/08/22 Status: Ordered gabapentin 300 mg oral capsule 600 mg = 2 cap, Oral, every evening Start Date: 03/11/22 Status: Ordered Insulin Lispro KwikPen 100 units/mL injectable solution Subcutaneous, TID(AC), 20-50 units per SLIDING SCALE Start Date: 03/11/22 Status: Ordered Levemir FlexTouch 100 units/mL subcutaneous solution 30 units =, Subcutaneous, every evening Start Date: 03/11/22 Status: Ordered lisinopril 10 mg oral tablet 10 mg = 1 tab, Oral, every evening Start Date: 03/11/22 Status: Ordered Problem List [...] Diagnosis Body Site Status Stent placement Completed Vital Signs Most recent to oldest [Reference Range]: 1 Temperature Tympanic [36.6-37.9 Deg C] 3 6.3 Deg C *LOW* (10/04/22 2:39 PM) Peripheral Pulse Rate [60-100 bpm] 93 bp m (10/04/22 2:39 PM) Respiratory Rate [12-24 br/min] 16 br/mi n (10/04/22 2:39 PM) Blood Pressure [90-140/60-90 mmHg] 149/7 8mmHg *HI* (10/04/22 2:39 PM) Social History Social History Type Response Tobacco Former tobacco user Tobacco Use:. 10-15 cigarettes a day per day. 7 year(s). Sex Hospital Discharge Instructions Patient Education 10/04/2022 14:02:15 Dental Pain, Uuwl-lz-Hhum Dental Pain Dental pain is often a sign that something is wrong with your teeth or gums. You can also have painafter a dental treatment. If you have dental pain, it is important to contact your dentist, especially if the cause of the pain is not known. Dental pain may hurt a lot or a little and can be caused by many things, including: ??? Tooth decay (cavities or caries). ??? Infection. ??? The inner part of the tooth being filled with pus (an abscess). ??? Injury. ??? A crack in the tooth. ??? Gums that move back and expose the root of a tooth. ??? Gum disease. ??? Abnormal grinding or clenching of teeth. ??? Not taking good care of your teeth. Sometimes the cause of pain is not known. You may have pain all the time, or it may happen only when you are: ??? Chewing. ??? Exposed to hot or cold temperatures. ??? Eating or drinking foods or drinks that have a lot of sugar in them, such as soda or candy. Follow these instructions at home: Medicines ??? Take gyra-vfi-opuhxih and prescription medicines only as told by your dentist. ??? If you were prescribed an antibiotic medicine, take it as told by your dentist. Do not stop taking it even if you start to feel better. Eating and drinking Do not eat foods or drinks that cause you pain. These include: ??? Very hot or very cold foods or drinks. ??? Sweet or sugary foods or drinks. Managing pain and swelling ??? If told, put ice on the painful area of your face. To do this: ??? Put ice in a plastic bag. ??? Place a towel between your skin and the bag. ??? Leave the ice on for 20 minutes, 2???3 times a day. ??? Take off the ice if your skin turns bright red. This is very important. If you cannot feel pain, heat, or cold, you have a greater risk of damage to the area. Brushing your teeth ??? Hector your teeth twice a day using a fluoride toothpaste. ??? Use a toothpaste made for sensitive teeth as told by your dentist. ??? Use a soft toothbrush. General instructions ??? Floss your teeth at least once a day. ??? Do not put heat on the outside of your face. ??? Rinse your mouth often with salt water. To make salt water, dissolve ?1 tsp (3???6 g) of salt in 1 cup (237 mL) of warm water. ??? Watch your dental pain. Let your dentist know if there are any changes. ??? Keep all follow-up visits. Contact a dentist if: ??? You have dental pain and you do not know why. ??? Medicine does not help your pain. ??? Your symptoms get worse. ??? You have new symptoms. Get help right away if: ??? You cannot open your mouth. ??? You are having trouble breathing or swallowing. ??? You have a fever. ??? Your face, neck, or jaw is swollen. These symptoms may be an emergency. Get help right away. Call your local emergency services (911 int [place] ??? Do not wait to see if the symptoms will go away. ??? Do not drive yourself to the hospital. Summary ??? Dental pain may be caused by many things, including tooth decay, injury, or infection. In some cases, the cause is not known. ??? Dental pain may hurt a lot or very little. You may have pain all the time, or you may have it only when you eat or drink. ??? Take ovek-xlg-batkyku and prescription medicines only as told by your dentist. ??? Watch your dental pain for any changes. Let your dentist know if symptoms get worse. This information is not intended to replace advice given to you by your health care provider. Make sure you discuss any questions you have with your health care provider. Document Revised: 11/11/2020 Document Reviewed: 11/11/2020 [employer] Patient Education ?? 2022 [employer] Physician Outpatient Note * Kimberly Ga PA-C: PERFORM Event Display: Office Clinic Note Physician Authored Date: [id number] SHOSHANA SALGADO :1975 Age:46 years Sex:Male Visit Date:10/04/2022 Primary Care Physician: MARIBETH BARKER MD Chief Complaint lower right tooth pain - 3 days History of Present Illness This is a 46-year-old man who presents for evaluation of dental pain.?? He reports for the past 3 days he has had severe pain in his right back??lower molar.?? He has been able to sleep because of the pain.?? He has had very mild amounts of drainage from the area. ??He feels that his tooth is broken because it is sharp.?? He has not seen a dentist in many years but??has made a call to a local dentist to try to get into this for next week. ??He denies any fevers, chills. ??He denies any pain or swelling around the eyes or sinuses. He is eating and drinking. Physical Exam Vitals & Measurements T:??36.3?C ??(Tympanic)?? HR:??93??(Peripheral)?? RR:??16?? BP:??149/78?? SpO2:??99%?? Pain Score:??7?? General: A&O x 3, well-built and hydrated, no acute distress Eyes: PERRLA, no redness or drainage, no swelling, no pain with EOM Oral: right lower back molar fractured, surrounding tenderness, no fluctuance or abscess, moist mucous membranes Throat: oropharynx and tonsils without erythema or exudate Neck:??5/5 flexion and extension, supple, no lymphadenopathy Heart: normal S1S2, no murmurs, rubs, gallops Lungs: equal and symmetric respiratory effort, lungs clear to auscultation without wheezes, rales, rhonchi Assessment/Plan 1.??Pain, dental??K08.89 Patient has evidence of a fractured right lower back molar. ??There is no surrounding fluctuance orabscess??to warrant I&D today. ??We will treat with amoxicillin for dental infection.?? I encouraged??alternating ibuprofen and Tylenol as needed for pain. ??Cool compresses may be therapeutic. ??Follow-up with your dentist in the next week or so, sooner??for any acute concerns or worsening symptoms. Discharge papers provided Ordered: amoxicillin 500 mg oral capsule, 500 mg = 1 cap, Oral, every 12 hr, # 20 cap, 0 Refill(s), Pharmacy: [id number], 177, cm, 07/08/22 14:39:00 EDT, Height/Length Dosing, 117.93, kg, 07/08/22 14:39:00 EDT, Weight Dosing ?? Patient Instructions I have sent a prescription for amoxicillin for you.?? Apply??ice packs as needed.?? You can take??600 to 800 mg of ibuprofen as needed every 6-8 hours.?? You can also take??1000 mg of Tylenol as needed up to 3 times a day. ??Do not exceed 3 g of Tylenol in 1 day.?? I encouraged that you follow-up with a dentist??for definitive care Patient Education Dental Pain, Bcmo-af-Gtsr Problem List/Past Medical History Ongoing Anemia Cholecystitis, chronic COVID-19 Diabetes Heart attack High blood pressure Impairment of balance Sensorineural hearing loss of left ear with normal hearing on right side Sudden sensorineural hearing loss Tinnitus of left ear Historical No qualifying data Procedure/Surgical History ???Stent placement Medications !-Zofran ODT 4 mg oral tablet, disintegrating, 4 mg= 1 tab, Oral, 6 times per day, PRN amoxicillin 500 mg oral capsule, 500 mg= 1 cap, Oral, every 12 hr aspirin 81 mg oral tablet, chewable, 81 mg= 1 tab, Chewed, every evening atorvastatin 40 mg oral tablet, 40 mg= 1 tab, Oral, every evening citalopram 10 mg oral tablet, 10 mg= 1 tab, Oral, every evening Farxiga 5 mg oral tablet, 5 mg= 1 tab, Oral, Daily gabapentin 300 mg oral capsule, 600 mg= 2 cap, Oral, every evening Insulin Lispro KwikPen 100 units/mL injectable solution, Subcutaneous, TID(AC) Levemir FlexTouch 100 units/mL subcutaneous solution, 30 units, Subcutaneous, every evening lisinopril 10 mg oral tablet, 10 mg= 1 tab, Oral, every evening Allergies Diphendramine HCL??(Hyperactivity level) melatonin??(Restless legs syndrome) Social History Alcohol Current, Beer, 1-2 times per month Electronic Cigarette/Vaping Electronic Cigarette Use: Never. Home/Environment Lives with Spouse. Living situation: Home/Independent. Tobacco Former tobacco user Tobacco Use:. 10-15 cigarettes a day per day. 7 year(s). Electronically Signed on 10/04/22 03:09 PM Kimberly Ga PA-C Outpatient Summary note * Kimberly Ga PA-C: PERFORM Event Display: Ambulatory Patient Summary Authored Date: [id number] NAOMISHOSHANA Vira :1975 Age:46 years Sex:Male Visit Date:10/04/2022 Primary Care Physician: MARIBETH BARKER MD Ambulatory Visit Instructions We would like to thank you for allowing us to assist you with your healthcare needs. The following includes patient education materials and information regarding your injury/illness. Your Next Steps Instructions From Your Care Team I have sent a prescription for amoxicillin for you.?? Apply??ice packs as needed.?? You can take??600 to 800 mg of ibuprofen as needed every 6-8 hours.?? You can also take??1000 mg of Tylenol as needed up to 3 times a day. ??Do not exceed 3 g of Tylenol in 1 day.?? I encouraged that you follow-up with a dentist??for definitive care Medications What How Much When Instructions Unchanged aspirin (aspirin 81 mg oral tablet, chewable) 1 tab Chewed Every evening Unchanged atorvastatin (atorvastatin 40 mg oral tablet) 1 tab Oral (given by mouth) Every evening Unchanged citalopram (citalopram 10 mg oral tablet) 1 tab Oral (given by mouth) Every evening Unchanged dapagliflozin (Farxiga 5 mg oral tablet) 1 tab Oral (given by mouth) Every day Unchanged gabapentin (gabapentin 300 mg oral capsule) 2 Capsules Oral (given by mouth) Every evening Unchanged insulin detemir (Levemir FlexTouch 100 units/ mL subcutaneous solution) 30 Units Subcutaneous (under the skin) Every evening Unchanged insulin lispro (Insulin Lispro KwikPen 100 units/ mL injectable solution) Subcutaneous (under the skin) 3 times a day before meals 20-50 units per SLIDING SCALE ?? Unchanged lisinopril (lisinopril 10 mg oral tablet) 1 tab Oral (given by mouth) Every evening Unchanged ondansetron (!-Zofran ODT 4 mg oral tablet, disintegrating) 1 tab Oral (given by mouth) 6 times per day as needed for as needed for nausea/vomiting Your Summary Your Diagnosis Pain, dental Problems Ongoing - Any problem that you are currently receiving treatment for. Anemia Cholecystitis, chronic COVID-19 Diabetes Heart attack High blood pressure Impairment of balance Sensorineural hearing loss of left ear with normal hearing on right side Sudden sensorineural hearing loss Tinnitus of left ear Your Care Team Attending Physician - Kimberly Ga PA-C Primary Care Physician - MJ WILLS, MARIBETH Constantino Discharge Vitals Temperature??(Tympanic) 97.3 ??F (36.3 ??C) Heart Rate??(Peripheral) 93 Respiratory Rate?? 16 Blood Pressure?? 149/78?? Allergies Diphendramine HCL??(Hyperactivity level) melatonin??(Restless legs syndrome) Education Materials Dental Pain Dental pain is often a sign that something is wrong with your teeth or gums. You can also have painafter a dental treatment. If you have dental pain, it is important to contact your dentist, especially if the cause of the pain is not known. Dental pain may hurt a lot or a little and can be caused by many things, including: ? Tooth decay (cavities or caries). ? Infection. ? The inner part of the tooth being filled with pus (an abscess). ? Injury. ? A crack in the tooth. ? Gums that move back and expose the root of a tooth. ? Gum disease. ? Abnormal grinding or clenching of teeth. ? Not taking good care of your teeth. Sometimes the cause of pain is not known. You may have pain all the time, or it may happen only when you are: ? Chewing. ? Exposed to hot or cold temperatures. ? Eating or drinking foods or drinks that have a lot of sugar in them, such as soda or candy. Follow these instructions at home: Medicines ? Take xofk-goh-olwxpsb and prescription medicines only as told by your dentist. ? If you were prescribed an antibiotic medicine, take it as told by your dentist. Do not stop taking it even if you start to feel better. Eating and drinking Do not eat foods or drinks that cause you pain. These include: ? Very hot or very cold foods or drinks. ? Sweet or sugary foods or drinks. Managing pain and swelling ? If told, put ice on the painful area of your face. To do this: ? Put ice in a plastic bag. ? Place a towel between your skin and the bag. ? Leave the ice on for 20 minutes, 2???3 times a day. ? Take off the ice if your skin turns bright red. This is very important. If you cannot feel pain, heat, or cold, you have a greater risk of damage to the area. Brushing your teeth ? Hector your teeth twice a day using a fluoride toothpaste. ? Use a toothpaste made for sensitive teeth as told by your dentist. ? Use a soft toothbrush. General instructions ? Floss your teeth at least once a day. ? Do not put heat on the outside of your face. ? Rinse your mouth often with salt water. To make salt water, dissolve ?1 tsp (3???6 g) of salt in 1 cup (237 mL) of warm water. ? Watch your dental pain. Let your dentist know if there are any changes. ? Keep all follow-up visits. Contact a dentist if: ? You have dental pain and you do not know why. ? Medicine does not help your pain. ? Your symptoms get worse. ? You have new symptoms. Get help right away if: ? You cannot open your mouth. ? You are having trouble breathing or swallowing. ? You have a fever. ? Your face, neck, or jaw is swollen. These symptoms may be an emergency. Get help right away. Call your local emergency services (911 int [place] ? Do not wait to see if the symptoms will go away. ? Do not drive yourself to the hospital. Summary ? Dental pain may be caused by many things, including tooth decay, injury, or infection. In some cases, the cause is not known. ? Dental pain may hurt a lot or very little. You may have pain all the time, or you may have it only when you eat or drink. ? Take dthd-iwa-xyzkmha and prescription medicines only as told by your dentist. ? Watch your dental pain for any changes. Let your dentist know if symptoms get worse. This information is not intended to replace advice given to you by your health care provider. Make sure you discuss any questions you have with your health care provider. Document Revised: 11/11/2020 Document Reviewed: 11/11/2020 [employer] Patient Education ?? 2022 [employer] Electronically Signed on: 10/04/2022 15:03 EDTSigned by:ZACKARY Ga PA-C: PERFORM Event Display: Ambulatory Patient Summary Authored Date: [id number] SHOSHANA SALGADO :1975 Age:46 years Sex:Male Visit Date:10/04/2022 Primary Care Physician: MARIBETH BARKER MD Ambulatory Visit Instructions We would like to thank you for allowing us to assist you with your healthcare needs. The following includes patient education materials and information regarding your injury/illness. Your Next Steps Instructions From Your Care Team I have sent a prescription for amoxicillin for you.?? Apply??ice packs as needed.?? You can take??600 to 800 mg of ibuprofen as needed every 6-8 hours.?? You can also take??1000 mg of Tylenol as needed up to 3 times a day. ??Do not exceed 3 g of Tylenol in 1 day.?? I encouraged that you follow-up with a dentist??for definitive care Medications What How Much When Instructions Unchanged aspirin (aspirin 81 mg oral tablet, chewable) 1 tab Chewed Every evening Unchanged atorvastatin (atorvastatin 40 mg oral tablet) 1 tab Oral (given by mouth) Every evening Unchanged citalopram (citalopram 10 mg oral tablet) 1 tab Oral (given by mouth) Every evening Unchanged dapagliflozin (Farxiga 5 mg oral tablet) 1 tab Oral (given by mouth) Every day Unchanged gabapentin (gabapentin 300 mg oral capsule) 2 Capsules Oral (given by mouth) Every evening Unchanged insulin detemir (Levemir FlexTouch 100 units/ mL subcutaneous solution) 30 Units Subcutaneous (under the skin) Every evening Unchanged insulin lispro (Insulin Lispro KwikPen 100 units/ mL injectable solution) Subcutaneous (under the skin) 3 times a day before meals 20-50 units per SLIDING SCALE ?? Unchanged lisinopril (lisinopril 10 mg oral tablet) 1 tab Oral (given by mouth) Every evening Unchanged ondansetron (!-Zofran ODT 4 mg oral tablet, disintegrating) 1 tab Oral (given by mouth) 6 times per day as needed for as needed for nausea/vomiting Your Summary Your Diagnosis Pain, dental Problems Ongoing - Any problem that you are currently receiving treatment for. Anemia Cholecystitis, chronic COVID-19 Diabetes Heart attack High blood pressure Impairment of balance Sensorineural hearing loss of left ear with normal hearing on right side Sudden sensorineural hearing loss Tinnitus of left ear Your Care Team Attending Physician - Kimberly Ga PA-C Primary Care Physician - MJ WILLS, MARIBETH Constantino [facility] Vitals Temperature??(Tympanic) 97.3 ??F (36.3 ??C) Heart Rate??(Peripheral) 93 Respiratory Rate?? 16 Blood Pressure?? 149/78?? Allergies Diphendramine HCL??(Hyperactivity level) melatonin??(Restless legs syndrome) Education Materials Dental Pain Dental pain is often a sign that something is wrong with your teeth or gums. You can also have painafter a dental treatment. If you have dental pain, it is important to contact your dentist, especially if the cause of the pain is not known. Dental pain may hurt a lot or a little and can be caused by many things, including: ? Tooth decay (cavities or caries). ? Infection. ? The inner part of the tooth being filled with pus (an abscess). ? Injury. ? A crack in the tooth. ? Gums that move back and expose the root of a tooth. ? Gum disease. ? Abnormal grinding or clenching of teeth. ? Not taking good care of your teeth. Sometimes the cause of pain is not known. You may have pain all the time, or it may happen only when you are: ? Chewing. ? Exposed to hot or cold temperatures. ? Eating or drinking foods or drinks that have a lot of sugar in them, such as soda or candy. Follow these instructions at home: Medicines ? Take oamf-knr-kztojtc and prescription medicines only as told by your dentist. ? If you were prescribed an antibiotic medicine, take it as told by your dentist. Do not stop taking it even if you start to feel better. Eating and drinking Do not eat foods or drinks that cause you pain. These include: ? Very hot or very cold foods or drinks. ? Sweet or sugary foods or drinks. Managing pain and swelling ? If told, put ice on the painful area of your face. To do this: ? Put ice in a plastic bag. ? Place a towel between your skin and the bag. ? Leave the ice on for 20 minutes, 2???3 times a day. ? Take off the ice if your skin turns bright red. This is very important. If you cannot feel pain, heat, or cold, you have a greater risk of damage to the area. Brushing your teeth ? Hector your teeth twice a day using a fluoride toothpaste. ? Use a toothpaste made for sensitive teeth as told by your dentist. ? Use a soft toothbrush. General instructions ? Floss your teeth at least once a day. ? Do not put heat on the outside of your face. ? Rinse your mouth often with salt water. To make salt water, dissolve ?1 tsp (3???6 g) of salt in 1 cup (237 mL) of warm water. ? Watch your dental pain. Let your dentist know if there are any changes. ? Keep all follow-up visits. Contact a dentist if: ? You have dental pain and you do not know why. ? Medicine does not help your pain. ? Your symptoms get worse. ? You have new symptoms. Get help right away if: ? You cannot open your mouth. ? You are having trouble breathing or swallowing. ? You have a fever. ? Your face, neck, or jaw is swollen. These symptoms may be an emergency. Get help right away. Call your local emergency services (911 int [place] ? Do not wait to see if the symptoms will go away. ? Do not drive yourself to the hospital. Summary ? Dental pain may be caused by many things, including tooth decay, injury, or infection. In some cases, the cause is not known. ? Dental pain may hurt a lot or very little. You may have pain all the time, or you may have it only when you eat or drink. ? Take rxbd-ipz-hmrztgf and prescription medicines only as told by your dentist. ? Watch your dental pain for any changes. Let your dentist know if symptoms get worse. This information is not intended to replace advice given to you by your health care provider. Make sure you discuss any questions you have with your health care provider. Document Revised: 11/11/2020 Document Reviewed: 11/11/2020 [employer] Patient Education ?? 2022 [employer] Electronically Signed on: 10/04/2022 15:03 EDTSigned by:ZACKARY Patient Care team information Care Team Personnel Name: MARIBETH BARKER MD Position: No Access Member Role: Primary Care Physician Address: Address: [address] [place] [address]- Care Team Related Persons Name: GRETTA SALGADO
--- OUTSIDE RECORDS SUMMARY | 2024-01-04 13:05 | XMS_ITS | Continuity of Care Document ---
Author Organization [facility] Address [address] [place] [address] Care Team Providers Care Hand Spring Former Name Role Phone Unavailable, Physician Primary Care Physician Un available Encounter [facility] NBR [id number] Date(s): 04/07/22 - 04/07/22 [facility] [address] [place] [address]- Discharge Disposition: Home or Self Care Attending Physician: Laureen Resendez MD Allergies, Adverse Reactions, Alerts Substance Reaction Severity Status melatonin Restless legs syndrome Unknown Activ e Diphendramine HCL Hyperactivity level Unknown Act nomi Functional Status 04/07/22 Recent Travel History No recent travel Other exposure to Infectious Disease Non e Medications aspirin 81 mg oral capsule 1 [...] recent to oldest [Reference Range]: 1 Temperature Temporal Artery [36-38 Deg C ] 35.5 Deg C *LOW* (04/07/22 8:22 AM) Apical Heart Rate [60-100 bpm] 103 bpm *HI* (04/07/22 8:22 AM) Blood Pressure [90-140/60-90 mmHg] 144/8 4mmHg *HI* (04/07/22 8:22 AM) Weight 118.8 kg (04/07/22 8:22 AM) Weight Measured (lbs) 261.909 lb (04/07/22 8:22 AM) [place] Body Weight Calculated 74.087 kg (04/07/22 8:22 AM) Height 179 cm (04/07/22 8:22 AM) Height/Length Measured (inches) 70.47 in ch (04/07/22 8:22 AM) BSA Measured 2.43 m2 (04/07/22 8:22 AM) Body Mass Index 37.08 kg/m2 (04/07/22 8:22 AM) Social History Social History Type Response Tobacco Former tobacco user Tobacco Use:. 10-15 cigarettes a day per day. 7 year(s). Sex Patient Care team information Care Team Personnel Name: Unavailable, Physician Position: No Access Member Role: Primary Care Physician
--- OUTSIDE RECORDS SUMMARY | 2024-01-04 13:05 | XMS_ITS | Continuity of Care Document ---
Author Organization [facility] Address [address] [place] [address] Care Team Providers Care Rebar Bender Name Role Phone MARIBETH BARKER MD Primary Care Physician Encounter [facility] NBR [id number] Date(s): 11/30/22 - 11/30/22 [facility] [address] [place], [place] [address] Encounter Diagnosis Infected dental caries(Discharge Diagnosis) - 11/30/22 Periapical abscess without sinus(Discharge Diagnosis) - 11/30/22 Discharge Disposition: Home or Self Care Attending Physician: Kimberly Ga PA-C Allergies, Adverse Reactions, Alerts Substance Reaction Severity Status melatonin Restless legs syndrome Unknown Activ e Diphendramine HCL Hyperactivity level Unknown Act nomi Medications !-Zofran ODT 4 mg oral tablet, disintegrating 4 mg = 1 tab, Oral, 6 times per day, PRN as needed for nausea/vomiting, # 16 tab, 0 Refill(s), Pharmacy: [id number], 177, cm, 07/08/22 14:39:00 EDT, Height/Length Dosing, 117.93, kg, 07/08/22 14:39:00 EDT, Weight Dosing Start Date: 07/08/22 Status: Ordered amoxicillin 500 mg oral capsule 500 mg = 1 cap, Oral, every 12 hr, # 20 cap, 0 Refill(s), Pharmacy: [id number], 177, cm,07/08/22 14:39:00 EDT, Height/Length Dosing, 117.93, kg, 07/08/22 14:39:00 EDT, Weight Dosing Start Date: 10/04/22 Status: Ordered amoxicillin-clavulanate 875 mg-125 mg oral tablet 1 tab, Oral, every 12 hr, # 20 tab, 0 Refill(s), Pharmacy: [id number], 177, cm, 07/08/2313:39:00 EDT, Height/Length Dosing, 117.93, kg, 07/08/22 14:39:00 EDT, Weight Dosing Start Date: 11/30/22 Stop Date: 12/10/22 Status: Ordered aspirin 81 mg oral tablet, [...] 1 Temperature Tympanic [36.6-37.9 Deg C] 3 5.9 Deg C *LOW* (11/30/22 12:12 PM) Peripheral Pulse Rate [60-100 bpm] 105 b pm *HI* (11/30/22 12:12 PM) Respiratory Rate [12-24 br/min] 16 br/mi n (11/30/22 12:12 PM) Blood Pressure [90-140/60-90 mmHg] 153/9 0mmHg *HI* (11/30/22 12:12 PM) Social History Social History Type Response Tobacco Former tobacco user Tobacco Use:. 10-15 cigarettes a day per day. 7 year(s). Sex Physician Outpatient Note * Kimberly Ga PA-C: PERFORM Event Display: Office Clinic Note Physician Authored Date: [id number] SHOSHANA SALGADO :1975 Age:46 years Sex:Male Visit Date:11/30/2022 Primary Care Physician: MARIBETH BARKER MD Chief Complaint tooth pain located lower right History of Present Illness This is a 46-year-old man who presents for evaluation of dental pain.?Patient was seen??2 monthsago??with the same symptoms and does have an upcoming dentist appointment??in 1 week.??He reports for the past??day he has had severe pain in his right back??lower molar.?? He has been unable to sleep because of the pain.?Has had difficulty eating but has been hydrating well. ??He denies any fever or chills. ??He has not noticed any drainage from the area.?? He denies any periorbital pain or swelling Physical Exam Vitals & Measurements T:??35.9?C ??(Tympanic)?? HR:??105??(Peripheral)?? RR:??16?? BP:??153/90?? SpO2:??100%?? Pain Score:??10?? General: A&O x 3, well-built and hydrated, [...] to auscultation without wheezes, rales, rhonchi Assessment/Plan 1.??Infected dental caries??K02.9 Patient presenting??with??dental pain suspect related to infected dental caries. ??He has appointment with a dentist for??definitive care??in 1 week. ??I will place patient on Augmentin today. ??He was also given??30 mg of Toradol IM as he is complaining of severe pain despite taking ibuprofen.?? Advised that he not take ibuprofen??for the next few days??as the combination of NSAIDs can be irritating to the stomach lining.?? I advised that he only take Tylenol 1000 mg as needed up to 3 times a day for any breakthrough pain. ??He should apply ice regularly.?? He should not take any aspirin either.?? Patient is to follow-up for any worsening pain, swelling,??difficulty tolerating food or fluids p.o.,??pain with extraocular movements Ordered: amoxicillin-clavulanate 875 mg-125 mg oral tablet, 1 tab, Oral, every 12 hr, # 20 tab, 0 Refill(s),Pharmacy: [id number], 177, cm, 07/08/22 14:39:00 EDT, Height/Length Dosing, 117.93, kg, 07/08/22 14:39:00 EDT, Weight Dosing Toradol, 30 mg, IM, Once, First Dose: 11/30/22 13:00:00 EDT, Stop Date: 11/30/22 13:00:00 EDT, Physician Stop, Routine ?? Periapical abscess without sinus??K04.7 ?? Problem List/Past Medical History Ongoing Anemia Cholecystitis, [...] mg= 1 cap, Oral, every 12 hr amoxicillin-clavulanate 875 mg-125 mg oral tablet, 1 tab, Oral, every 12 hr aspirin 81 mg [...] 10 mg= 1 tab, Oral, every evening Toradol, 30 mg, IM, Once Allergies Diphendramine HCL??(Hyperactivity level) melatonin??(Restless legs syndrome) Social History Alcohol Current, Beer, 1-2 times per month Electronic Cigarette/Vaping Electronic Cigarette Use: Never. Home/Environment Lives with Spouse. Living situation: Home/Independent. Tobacco Former tobacco user Tobacco Use:. 10-15 cigarettes a day per day. 7 year(s). Electronically Signed on 11/30/22 12:58 PM Kimberly Ga PA-C Patient Care team information Care Team Personnel Name: MARIBETH BARKER MD Position: No Access Member Role: Primary Care Physician Address: Address: [address] [place] [address] Care Team Related Persons Name: GRETTA SALGADO Name: GRETTA SALGADO Address: Home [address] [place] [phone] [facility] Address: Mailing [address] [place] [phone]
--- OUTSIDE RECORDS SUMMARY | 2024-01-04 13:05 | XMS_ITS | Continuity of Care Document ---
Author Organization [facility] Address [address] [place] [address] Encounter [facility] NBR [id number] Date(s): 01/05/22 - 01/05/22 [facility] [address] [place], [place] [address] Encounter Diagnosis Left-sided chest pain(Discharge Diagnosis) - 01/05/22 Cough(Discharge Diagnosis) - 01/05/22 History of heart attack(Discharge Diagnosis) - 01/05/22 Discharge Disposition: Home or Self Care Attending Physician: Josee Stroud PA-C Allergies, Adverse Reactions, Alerts No Known Medication Allergies Functional Status 01/05/22 Other exposure to Infectious Disease Non e Medications atorvastatin 0 Refill(s) Start Date: 01/05/22 Status: Ordered citalopram 0 Refill(s) Start Date: 01/05/22 Status: Ordered clopidogrel 0 Refill(s) Start Date: 01/05/22 Status: Ordered gabapentin 0 Refill(s) Start Date: 01/05/22 Status: Ordered HumaLOG 0 Refill(s) Start Date: 01/05/22 Status: Ordered lisinopril 0 Refill(s) Start Date: 01/05/22 Status: Ordered omeprazole 40 mg oral delayed release capsule 40 mg = 1 cap, Oral, Daily, # 14 cap, 0 Refill(s), Pharmacy: [id number], 1, cm, 01/05/2215:00:00 EST, Height/Length Dosing, 117, kg, 01/05/22 15:00:00 EST, Weight Dosing Start Date: 01/05/22 Status: Ordered Trulicity Pen 0 Refill(s) Start Date: 01/05/22 Status: Ordered Problem List Condition Confirmation Course Effective Dates Status Health St [facility] Informant Diabetes Confirmed Active High blood pressure Confirmed Active Heart attack Confirmed 2019 Active Procedures Procedure Date Related Diagnosis Body Site Status Stent placement Completed Results Laboratory List Name Date SARS-CoV-2 (COVID-19) Antigen (Binax) PO CT 01/05/22 Most recent to oldest [Reference Range]: 1 SARS-CoV-2 (COVID-19) Ag (Binax) [Negati ve] Negative (01/05/22 2:22 PM) Vital Signs Most recent to oldest [Reference Range]: 1 Temperature Tympanic [36.6-37.9 Deg C] 3 5.8 Deg C *LOW* (01/05/22 1:35 PM) Peripheral Pulse Rate [60-100 bpm] 106 b pm *HI* (01/05/22 1:35 PM) Blood Pressure [90-140/60-90 mmHg] 138/7 7mmHg (01/05/22 1:35 PM) Weight 117.03 kg (01/05/22 1:35 PM) Weight Measured (lbs) 258.007 lb (01/05/22 1:35 PM) Height 177.80 cm (01/05/22 1:35 PM) Height/Length Measured (inches) 70 inch (01/05/22 1:35 PM) BSA Measured 2.4 m2 (01/05/22 1:35 PM) Body Mass Index 37.02 kg/m2 (01/05/22 1:35 PM) Social History Social History Type Response Tobacco Never tobacco user T obacco Use:. Sex Physician Outpatient Note * Josee Stroud PA-C: PERFORM Event Display: Office Clinic Note Physician Authored Date: [id number] SHOSHANA SALGADO :1975 Age:46 years Sex:Male Visit Date:01/05/2022 Chief Complaint pt reports chest pain - sharp/shooting pain for 6 days on left side, light headed hx of stents pt reports cough, shortness of breath History of Present Illness Patient is a 46-year-old male with past medical history significant for??type 2 diabetes, hypertension,??MO with 2 cardiac stents at 43 years old??that presents to the urgent care office today with 6-day history of??nonexertional but intermittent left??sided??chest pain??that is worse??with cough, leaning forward??or any movement of the torso.?? There was an associated episode of nausea and lightheadedness earlier today.?? He started with cough, hemoptysis and fatigue just 2 days ago??but no fever, chills, body aches.?? No recent??air travel. ??No recent procedures??or hospitalizations.?? No history of DVT/PE.?? Nontobacco user. Physical Exam Vitals & Measurements T:??35.8?C ??(Tympanic)?? HR:??106??(Peripheral)?? BP:??138/77?? SpO2:??100%?? HT:??177.80??cm?? WT:??117.03??kg?? BMI:??37.02?? Pain Score:??7?? BSA:??2.4?? Anxious, reliable historian, pleasant Nondiaphoretic Elevated heart rate at 106.?? Normal rhythm. Lung sounds are clear in all lobes. There is reproducible tenderness along the left breast tissue??and lateral aspect ribs. No swelling of the lower extremities. Medical Decision Making: Left-sided chest pain??with history of MO??and cardiac stents: This is a 46-year-old male??with 6 day??history of??nonexertional, nontraumatic left- sided??chest pain and??acute??viral respiratory symptoms. ??His rapid COVID was negative. ??EKG did not reveal any acute changes.?? Patient is??risk averse??and prefers??cardiac rule out. ??He subsequently transferred to the emergency department for definitive evaluation. Assessment/Plan 1.??Left-sided chest pain??R07.9 Ordered: CV Electrocardiogram 12 Lead, 01/05/22 14:10:00 EST, Routine, Reason: Chest Pain, Stop date and time 01/05/22 14:10:00 EST, Left-sided chest pain Cough, ORD_SET_REQ_DT_RANGE, [facility] Person Id SARS-CoV-2 (COVID-19) Ag POC (RE), 01/05/22 14:05:00 EST, Left-sided chest pain Cough, 01/05/22 14:05:00 EST ?? 2.??Cough??R05.9 Ordered: CV Electrocardiogram 12 Lead, 01/05/22 14:10:00 EST, Routine, Reason: Chest Pain, Stop date and time 01/05/22 14:10:00 EST, Left-sided chest pain Cough, ORD_SET_REQ_DT_RANGE, [facility] Internal Person Id SARS-CoV-2 (COVID-19) Ag POC (RE), 01/05/22 14:05:00 EST, Left-sided chest pain Cough, 01/05/22 14:05:00 EST ?? 3.??History of heart attack??I25.2 ?? Orders: Review Orders for Potential Auths., 01/05/22 14:06:08 EST Problem List/Past Medical History Ongoing Diabetes Heart attack High blood pressure Historical No qualifying data Procedure/Surgical History ???Stent placement Medications atorvastatin citalopram clopidogrel gabapentin HumaLOG lisinopril Trulicity Pen Allergies No Known Medication Allergies Social History Electronic Cigarette/Vaping Electronic Cigarette Use: Never. Tobacco Never tobacco user Tobacco Use:. Electronically Signed on 01/05/22 02:41 PM Josee Stroud PA-C
--- OUTSIDE RECORDS SUMMARY | 2024-01-04 13:05 | XMS_ITS | Continuity of Care Document ---
Author Organization [facility] Address [address] [place] [address] Care Team Providers Care Piecer Name Role Phone Unavailable, Physician Primary Care Physician Un available Encounter [facility] NBR [id number] Date(s): 03/24/22 - 03/24/22 [facility] [address] [place], [place] [address] Encounter Diagnosis Cholecystitis, chronic(Discharge Diagnosis) - 03/24/22 History of pancreatitis(Discharge Diagnosis) - 03/24/22 BMI 36.0-36.9,adult(Discharge Diagnosis) - 03/24/22 Anemia(Discharge Diagnosis) - 03/24/22 Diabetes(Discharge Diagnosis) - 03/24/22 Discharge Disposition: Home or Self Care Attending Physician: Laureen Resendez MD Allergies, Adverse Reactions, Alerts Substance Reaction Severity Status melatonin Restless legs syndrome Unknown Activ e Diphendramine HCL Hyperactivity level Unknown Act nomi Assessment and Plan Future Appointments Functional Status 03/24/22 Recent Travel History No recent travel Other [...] Temperature Temporal Artery [36-38 Deg C ] 35.6 Deg C *LOW* (03/24/22 9:16 AM) Blood Pressure [90-140/60-90 mmHg] 135/8 0mmHg (03/24/22 9:16 AM) Weight 116.9 kg (03/24/22 9:16 AM) Weight Measured (lbs) 257.72 lb (03/24/22 9:16 AM) [place] Body Weight Calculated 74.992 kg (03/24/22 9:16 AM) Height 180 cm (03/24/22 9:16 AM) Height/Length Measured (inches) 70.87 in (03/24/22 9:16 AM) BSA Measured 2.42 m2 (03/24/22 9:16 AM) Body Mass Index 36.08 kg/m2 (03/24/22 9:16 AM) Social History Social History Type Response Tobacco Former tobacco user Tobacco Use:. 10-15 cigarettes a day per day. 7 year(s). Sex Patient Care team information Personnel Name: Unavailable, Physician
--- OUTSIDE RECORDS SUMMARY | 2024-01-04 13:05 | XMS_ITS | Continuity of Care Document ---
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 Driver Name Role Phone MARIBETH BARKER MD Primary Care Physician [phone] Encounter [facility] FIN NBR [id number] Date(s): 09/11/23 - 09/11/[address] [address]- Encounter Diagnosis Low back pain(Discharge Diagnosis) - 09/11/23 Discharge Disposition: Home f/u External Provider Attending Physician: Karlo Baker MD Admitting Physician: Karlo Baker MD Allergies, Adverse Reactions, Alerts Substance Reaction Severity Status melatonin Restless legs syndrome Unknown Activ e Diphendramine HCL Hyperactivity level Unknown Act nomi Assessment and Plan Extracted from: Title:ED Provider Note Author:GLENIS Campbell Date:09/11/23 Assessment/Plan 1.??Low back pain??M54.50 ??Reassurance provided to the patient??and he??plans to continue with Tylenol and use a lidocaine??patches??as prescribed for the low back pain. ??He also follow-up with his performance instructor tomorrow and will return to the ED with any chest pain or shortness of breath. Ordered: lidocaine 5% topical film, 2 patches, Topical, Daily, remove patches after 12 hours, X 7 days, # 14 patches, 0 Refill(s), 09/18/23 14:16:00 EDT, Pharmacy: [id number], 177.8, cm, 09/11/23 11:32:00 EDT, Height, 121, kg, 09/11/23 11:39:00 EDT, Weight Dosing Discharge Patient, 09/11/23 14:15:00 EDT, Home Independently ?? Orders: CV Electrocardiogram 12 Lead, 09/11/23 11:28:00 EDT, Routine, Reason: Chest Pain, Stop date and time 09/11/23 11:28:00 EDT, ORD_SET_REQ_DT_RANGE, [facility] Internal Person Id Urinalysis Microscopic, Urine, Stat Collect, Collected, 09/11/23 13:50:00 EDT, Once, Nurse collect Urinalysis with Micro if Indicated and Culture if Indicated, Urine, Stat Collect, 09/11/23 11:51:00 EDT, Once, Nurse collect, Print Label Follow Up With When Contact Information Follow up with specialist Within 24 Hours Additional Instructions: MJ WILLS, MARIBETH Constantino Within [address] [place] [id number] ?? Additional Instructions: Functional Status 09/11/23 Family Member Travel History No recent t ravel Recent Travel History No recent travel Other exposure to Infectious Disease Non e Medications amoxicillin-clavulanate 875 mg-125 mg oral tablet 1 tab, Oral, every 12 hr, # 20 tab, 0 Refill(s), Pharmacy: [id number], 177, cm, 07/08/2313:39:00 EDT, Height/Length Dosing, 117.93, kg, 07/08/22 14:39:00 EDT, Weight Dosing Start Date: 11/30/22 Stop Date: 12/10/22 Status: Ordered aspirin 81 mg oral tablet, chewable 81 mg = 1 tab, Chewed, every evening Start Date: 03/11/22 Status: Ordered atorvastatin 40 mg oral tablet 40 mg = 1 tab, Oral, every evening Start Date: 03/11/22 Status: Ordered carvedilol 6.25 mg oral tablet 6.25 mg = 1 tab, Oral, BID, # 180 tab, 0 Refill(s) Start Date: 09/11/23 Status: Ordered citalopram 10 mg oral tablet [...] every evening Start Date: 03/11/22 Status: Ordered lidocaine 5% topical film 2 patches, Topical, Daily, remove patches after 12 hours, X 7 days, # 14 patches, 0 Refill(s), 09/18/23 1:16:00 PM CDT, Pharmacy: [id number], 177.8, cm, 09/11/23 11:32:00 EDT, Height, 121, kg, 09/11/23 11:39:00 EDT, Weight Dosing Start Date: 09/11/23 Stop Date: 09/18/23 Status: Ordered prasugrel 10 mg oral tablet 10 mg = 1 tab, Oral, Daily, # 30 tab, 0 Refill(s) Start Date: 09/11/23 Status: Ordered Mental Status 09/11/23 Eye Opening Response Loida Spontaneous ly Best Verbal Response [place] Oriented Best Motor Response Loida Obeys comman ds Loida Coma Score 15 Problem List Condition Confirmation Course Effective Dates Status H ealth Status Informant Anemia Confirmed Active Cholecystitis, chronic Confirmed Active Diabetes Confirmed Active High blood [...] placement Completed Results Laboratory List Name Date Urinalysis Microscopic 09/11/23 Urinalysis with Micro if Indicated and C ulture if Indicated 09/11/23 Troponin-I High Sensitivity 09/11/23 .Morphology (LTTL) 09/11/23 BNP 09/11/23 CBC w/ Diff 09/11/23 Comprehensive Metabolic Panel (CMP) 09/10 Lipase Level 09/11/23 PT/ INR 09/11/23 PTT 09/11/23 Troponin-I High Sensitivity 09/11/23 Automated Diff 09/11/23 Most recent to oldest [Reference Range]: 1 2 WBC [4.8-10.8 K/mcL] 11.4 K/mcL *HI* (09/11/23 11:42 AM) RBC [4.70-6.10 Million/mcL] 6.49 Million /mcL *HI* (09/11/23 11:42 AM) Neutro Auto [42.2-75.2 %] 77.5 % *HI* (09/11/23 11:42 AM) Lymph Auto [20.5-51.1 %] 13.9 % *LOW* (09/11/23: AM) [place] Auto [1.7-9.3 %] 5.7 % (09/11/23 11:42 AM) Basophil Auto [0.0-0.8 %] 1.1 % *HI* (09/11/23 11: AM) Prothrombin Time [9.1-10.6 seconds] 9.7 seconds (09/11/23 11:42 AM) INR [0.9-1.1] 1.0 1 (09/11/23 11:42 AM) BUN [7-25 mg/dL] 31 mg/dL *HI* (09/11/23 11:42 AM) UA Color [Yellow] Yellow (09/11/23 1:50 PM) UA WBC [0-3] 0-3 (09/11/23 1:50 PM) Glucose Level [70-109 mg/dL] 274 mg/dL *HI* (09/11/23 11:42 AM) Potassium Level [3.5-5.1 mmol/L] 5.1 mmo l/L (09/11/23 11:42 AM) Baso Absolute [0.0-0.2 K/mcL] 0.1 K/mcL (09/11/23 11:42 AM) MCV [80.0-94.0 fL] 67.3 fL *LOW* (09/11/23 11:42 AM) UA Urobilinogen [0.2] 0.2 *NA* (09/11/23 1:50 PM) RBC Morph [Normal] Abnormal *ABN* (09/11/23 11:42 AM) UA Hyal Cast [0-3] 0-3 (09/11/23 1:50 PM) UA Bili [Negative] Negative *NA* (09/11/23 1:50 PM) UA Ketones [Negative] Negative *NA* (09/11/23 1:50 PM) AST [13-39 IntlUnit/L] 18 IntlUnit/L (09/11/23 11:42 AM) ALT [7-52 IntlUnit/L] 19 IntlUnit/L (09/11/23 11:42 AM) MCHC [32.0-37.0 g/dL] 30.1 g/dL *LOW* (09/11/23 11:42 AM) Osmolality [275-295 mOsm/kg] 286 mOsm/kg (09/11/23 11:42 AM) Sodium Level [136-145 mmol/L] 135 mmol/L *LOW* (09/11/23 11:42 AM) UA RBC [0-3] 4-6 (09/11/23 1:50 PM) UA Leuk Est [Negative] Negative (09/11/23 1:50 PM) Lymph Absolute [1.2-3.4 K/mcL] 1.6 K/mcL (09/11/23 11:42 AM) UA Gran Cast [None Seen] 4-6 *ABN* (09/11/23 1:50 PM) UA Nitrite [Negative] Negative *NA* (09/11/23 1:50 PM) UA Glucose [Negative] >=1000 *NA* (09/11/23 1:50 PM) Hct [42.0-52.0 %] 43.6 % (09/11/23 11:42 AM) Microcyte 2+ *ABN* (09/11/23 11:42 AM) UA Bacteria [None Seen] None Seen (09/11/23 1:50 PM) Lipase Level [11-82 unit/L] 16 unit/L 2 (09/11/23 11:42 AM) Hypochromia 1+ *ABN* (09/11/23 11:42 AM) Partial Thromboplastin Time [21.3-28.4 seconds] 25.5 seconds (09/11/23 11:42 AM) Calcium Level [8.6-10.3 mg/dL] 9.3 mg/dL (09/11/23 11:42 AM) [place] Absolute [0.1-0.6 K/mcL] 0.6 K/mcL (09/11/23 11:42 AM) Albumin Level [3.5-5.7 g/dL] 3.8 g/dL (09/11/23 11:42 AM) Protein Total [6.4-8.9 g/dL] 7.3 g/dL (09/11/23 11:42 AM) UA Protein [Negative] >=300 *NA* (09/11/23 1:50 PM) MCH [27.0-31.0 pg] 20.2 pg *LOW* (09/11/23 11:42 AM) Neutro Absolute [1.4-6.5 K/mcL] 8.8 K/mc L *HI* (09/11/23 11:42 AM) Bilirubin Total [0.3-1.0 mg/dL] 0.6 mg/d L (09/11/23 11:42 AM) Hgb [14.0-18.0 g/dL] 13.1 g/dL *LOW* (09/11/23 11:42 AM) Alk Phos [34-104 IntlUnit/L] 80 IntlUnit /L (09/11/23 11:42 AM) UA Blood [Negative] Trace *ABN* (09/11/23 1:50 PM) MPV [7.4-10.4 fL] 9.1 fL (09/11/23 11:42 AM) UA Spec Grav [1.001-1.030] 1.020 (09/11/23 1:50 PM) Platelets [130-400 K/mcL] 281 K/mcL (09/11/23 11:42 AM) CO2 [21-31 mmol/L] 26 mmol/L (09/11/23 11:42 AM) Eos Absolute [0.0-0.2 K/mcL] 0.2 K/mcL (09/11/23 11:42 AM) UA pH [5.00-9.00] 6.00 (09/11/23 1:50 PM) BNP [<=100 pg/mL] 126 pg/mL *HI* (09/11/23 11:42 AM) UA Appear [Clear] Clear (09/11/23 1:50 PM) Chloride Level [98-107 mmol/L] 101 mmol/ L (09/11/23 11:42 AM) RDW-CV [11.5-14.5 %] 19.7 % *HI* (09/11/23 11:42 AM) A/G Ratio [1.0-2.5 g/dL] 1.1 g/dL (09/11/23 11:42 AM) BUN/Creat Ratio [8.0-20.0] 12.9 (09/11/23 11:42 AM) Globulin [2.3-3.5 g/dL] 3.5 g/dL (09/11/23 11:42 AM) Slide Review Morph Only (09/11/23 11:42 AM) UA Culture Ind?. [No] No (09/11/23 1:50 PM) Urine Srce Clean Catch (09/11/23 1:50 PM) Plt Large Few *ABN* (09/11/23 11:42 AM) Anisocyte 1+ (09/11/23 11:42 AM) Creatinine Level [0.70-1.30 mg/dL] 2.40 mg/dL *HI* (09/11/23 11:42 AM) Plt Estimation Normal (09/11/23 11:42 AM) Troponin-I HS [<=20 ng/L] 25 ng/L 3 *HI* (09/11/23 12:25 PM) 27 ng/L 4 *HI* (09/11/23 11:42 AM) Anion Gap [3.0-12.0] 8.0 (09/11/23 11:42 AM) Eos, Auto [0.00-3.00 %] 1.80 % (09/11/23 11:42 AM) eGFR CKD-EPI [>=60 mL/min/1.73 m2] 33 mL /min/1.73 m2 *LOW* (09/11/23 11:42 AM) 1Interpretive Data: THERAPEUTIC INR RANGES FOR WARFARIN Uncomplicated venous thromboembolic disease 2-3 Lupus Anticoagulant and recurrent thrombosis 3-3.5 Mechanical prosthetic valve or recurrent thrombosis 2.5-3.5 2Interpretive Data: S-etbsbx-u-benzoquinone imine (meabolite of Acetaminophen) will generate erroneously low lipase results in samples for patients that have taken toxic doses of acetaminophen. 3Interpretive Data: The [facility] ACCESS high-sensitivity Troponin I (hsTNI) 99 percentile cutoffs forhealthy adults are 12 ng/L or less for females and 20 ng/L or less for males. SERIAL MEASUREMENT IS HIGHLY RECOMMENDED for the diagnosis or exclusion of Acute Coronary Syndromes(ACS). Please refer to the High-Sensitivity Troponin Algorithm 2022 for guidance. As with all markers of cardiac injury, elevations of hsTnI do not in and of themselves indicate thepresence of an ischemic mechanism. Many other disease states can be associated with elevations via mechanisms different from those that cause injury in patients with ACS. These include trauma (contusion, ablation, pacing); congestive heart failure; pulmonary embolism; kidney failure; and myocarditis. Clinical judgement is necessary to distinguish patients who have ischemic heart disease from those who do not. 4Interpretive Data: The Berta ACCESS high-sensitivity Troponin I (hsTNI) 99 percentile cutoffs forhealthy adults are 12 ng/L or less for females and 20 ng/L or less for males. SERIAL MEASUREMENT IS HIGHLY RECOMMENDED for the diagnosis or exclusion of Acute Coronary Syndromes(ACS). Please refer to the High-Sensitivity Troponin Algorithm 2022 for guidance. As with all markers of cardiac injury, elevations of hsTnI do not in and of themselves indicate thepresence of an ischemic mechanism. Many other disease states can be associated with elevations via mechanisms different from those that cause injury in patients with ACS. These include trauma (contusion, ablation, pacing); congestive heart failure; pulmonary embolism; kidney failure; and myocarditis. Clinical judgement is necessary to distinguish patients who have ischemic heart disease from those who do not. Radiology Reports * Exam Date Time Procedure Performing Provider Status 09/11/23 12:05 PM XR Chest 1 View Vu Wright; Auth ( Verified) Notes: (XR Chest 1 View) Reason For Exam: chest pain. back pain XR Chest 1 View EXAM DESCRIPTION: XR Chest 1 View 09/11/2023 INDICATION: CHEST PAIN. BACK PAIN COMPARISON: 06/04/2023 FINDINGS: Clear lungs with no focal infiltrate or pulmonary edema. Normal cardiomediastinal contour. No significant pleural effusion or pneumothorax. IMPRESSION: No active chest disease. JOB #: [id number] Final Signed by: Vahe Espinoza MD Signed (Electronic Signature): 09/11/2023 12:14 pm Vital Signs Most recent to oldest [Reference Range]: 1 2 3 Temperature Temporal Artery [36-38 Deg C] 36.4 Deg C (09/11/23 11:30 AM) Peripheral Pulse Rate [60-100 bpm] 82 bpm (09/11/23 1:30 PM) 70 bpm (09/11/23 1:15 PM) 72 bpm (09/11/23 1:00 PM) Heart Rate Monitored [60-100 bpm] 85 bpm (09/11/23 2:00 PM) 85 bpm (09/11/23 1:45 PM) 85 bpm (09/11/23 1:30 PM) Respiratory Rate [12-24 br/min] 25 br/min *HI* (09/11/23 1:30 PM) 19 br/min (09/11/23 1:15 PM) 19 br/min (09/11/23 1:00 PM) Blood Pressure [90-140/60-90 mmHg] 173/91mmHg *HI* (09/11/23 1:30 PM) 173/91mmHg *HI* (09/11/23 1:15 PM) 166/87mmHg *HI* (09/11/23 1:00 PM) Mean Arterial Pressure, Cuff [65-140 mmHg] 118 mmHg (09/11/23 1:30 PM) 118 mmHg (09/11/23 1:15 PM) 113 mmHg (09/11/23 1:00 PM) Mean Arterial Pressure Cuff 113 mmHg (09/11/23 1:30 PM) 113 mmHg (09/11/23 1:15 PM) 111 mmHg (09/11/23 1:00 PM) Weight 121 kg (09/11/23 11:30 AM) Weight Dosing 121.000 kg (09/11/23 11:30 AM) Height 177.80 cm (09/11/23 11:30 AM) Body Mass Index 38.28 kg/m2 (09/11/23 11:30 AM) Social History Social History Type Response Tobacco Never tobacco user T obacco Use:. Sex Hospital Discharge Instructions Follow Up Care 09/11/2023 11:27:12 With:Follow up with specialist Address: When:24 Hours With:MARIBETH BARKER MD Address: [address] [place] [phone]- When:1 week Physician Emergency department Note * GLENIS Campbell: PERFORM Event Display: ED Note Physician Authored Date: [id number] NAOMISHOSHANA Vira :1975 Age:47 years Sex:Male Visit Date:09/11/2023 Primary Care Physician: MARIBETH BARKER MD Basic Information Time Seen: GLENIS Campbell / 09/11/2023 11:31 Chief Complaint Pt has had chest pain since this morning and back pain over the weekend. Pt SOB, lightheaded and fatigued. 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 He explains that??he worked??all day yesterday and this morning??began to experience a??low back pain. ??Pain is??worse with??movement of the low back it does not radiate into the abdomen or down the legs.?? He alsofeels overall fatigued and did??begin to experience some mild chest pain and describes it a 2 out of 10 substernal ache currently.?? He also notes some??difficulty breathing last night. ??States for a few minutes he felt??as if he was short of breath??while he was lying down and did sit up and feeling more comfortable. ??He does not currently feel short of breath. ??No recent illnesses??cough or fevers.?? Denies any urinary symptoms.?? He sees his performance instructor in follow-up tomorrow. Review of Systems: See HPI Physical Exam Vitals & Measurements T:??36.4?C ??(Temporal Artery)?? HR:??85??(Monitored)?? RR:??25?? BP:??173/91?? SpO2:??97%?? HT:??177.80??cm?? WT:??121??kg?? BMI:??38.28?? O2 Therapy:??Room air?? General: Patient is alert and engaging, appears well. Is in no acute distress. Speaking comfortablyin full sentences.?? Constitutional: No fevers, chills or diaphoresis.?? HEENT: Head normocephalic and atraumatic. Neck supple with FROM w/o lymphadenopathy or JVD. Tracheamidline. No c-spine tenderness. EOMs intact w/o pain. Pupils equal and reactive to light. TMs visualized bilaterally with normal color and landmarks present w/o erythema or effusion.?? Respiratory: ??No obvious work of breathing, regular rate. BS equal b/l, clear to auscultation.?? Cardiovascular: Heart regular rate and rhythm w/o murmurs, rubs or gallops. No peripheral edema present.?? GI: normoactive BS. Abdomen soft non tender, nondistended without guarding, rebound or rigidity. NoHSM Extremities: No obvious deformities. FROM.?? Integumentary: Skin warm and pink. No rashes or ecchymosis present.?? Neuro: CN III-XII grossly intact.?? Psychiatric: acting appropriate for age and circumstance. Normal mood without obvious ??affect.?? Medical Decision Making: Well-appearing pleasant 47-year-old male here for concerns of chest pain and low back pain along with associated fatigue.?? Appears anxious understandably as he has had 2 recent MIs in the past 5 years.?? Vitals obtained and reviewed. ??Blood pressure slightly elevated but otherwise within normal limits.?? EKG obtained showing a sinus rhythm at a rate of 71. ??No obvious evidence of acute ischemia or arrhythmia.?? Patient given fluids Tylenol and aspirin.?? Obtain chest x-ray labs. ??Labs unrevealing trending similarly to the past. ??BNP slightly elevated. ??Patient does??endorse some shortness breath while lying flat which occurred last night??but does not describe any PND he is not experie ncing any peripheral edema and there is no evidence of pleural effusion??on chest x-ray. ??Do not believe??he is experiencing acute heart failure. ??Initial troponin??27 with repeat 25.?Patient remained on telemetry while in the emergency department??without any??events. [facility]. Experiencing symptoms of a PE??he is neither hypoxic or tachycardic. Back pain is isolated to the low back without any neurological deficits. ??Completely resolved withTylenol and lidocaine.?Do not suspect a dissection.?? Unlikely UTI because he is not experiencing any??urinary symptoms and UA??did not show any evidence of infection. Procedure No Qualifying Data Assessment/Plan 1.??Low back pain??M54.50 ??Reassurance provided to the patient??and he??plans to continue with Tylenol and use a lidocaine??patches??as prescribed for the low back pain. ??He also follow-up with his performance instructor tomorrow andwill return to the ED with any chest pain or shortness of breath. Ordered: lidocaine 5% topical film, 2 patches, Topical, Daily, remove patches after 12 hours, X 7 days, # 14patches, 0 Refill(s), 09/18/23 14:16:00 EDT, Pharmacy: [id number], 177.8, cm, 09/11/23 11:32:00 EDT, Height, 121, kg, 09/11/23 11:39:00 EDT, Weight Dosing Discharge Patient, 09/11/23 14:15:00 EDT, Home Independently ?? Orders: CV Electrocardiogram 12 Lead, 09/11/23 11:28:00 EDT, Routine, Reason: Chest Pain, Stop date and time 09/11/23 11:28:00 EDT, ORD_SET_REQ_DT_RANGE, [facility] Internal Person Id Urinalysis Microscopic, Urine, Stat Collect, Collected, 09/11/23 13:50:00 EDT, Once, Nurse collect Urinalysis with Micro if Indicated and Culture if Indicated, Urine, Stat Collect, 09/11/23 11:51:00EDT, Once, Nurse collect, Print Label Follow Up With When Contact Information Follow up with specialist Within 24 Hours Additional Instructions: MJ WILLS, MARIBETH Constantino Within [address] [place] [phone]- Additional Instructions: Medication Reconciliation New Prescription lidocaine topical (lidocaine 5% topical film)2 patch(es) Topical (on the skin) every day for 7 Days. remove patches after 12 hours. Refills: 0. ?? Unchanged amoxicillin-clavulanate (amoxicillin-clavulanate 875 mg-125 mg oral tablet)1 tab Oral (given by mouth) every 12 hours for 10 Days. Refills: 0. ?? aspirin (aspirin 81 mg oral tablet, chewable)1 tab Chewed every evening. ?? atorvastatin (atorvastatin 40 mg oral tablet)1 tab Oral (given by mouth) every evening. ?? carvedilol (carvedilol 6.25 mg oral tablet)1 tab Oral (given by mouth) 2 times a day. ?? citalopram (citalopram 10 mg oral tablet)1 tab Oral (given by mouth) every evening. ?? dapagliflozin (Farxiga 5 mg oral tablet)1 tab Oral (given by mouth) every day. ?? gabapentin (gabapentin 300 mg oral capsule)2 Capsules Oral (given by mouth) every evening. ?? insulin detemir (Levemir FlexTouch 100 units/mL subcutaneous solution)30 Units Subcutaneous (under the skin) every evening. ?? insulin lispro (Insulin Lispro KwikPen 100 units/mL injectable solution)Subcutaneous (under the skin) 3 times a day before meals. 20-50 units per SLIDING SCALE. ?? prasugrel (prasugrel 10 mg oral tablet)1 tab Oral (given by mouth) every day. Problem List/Past Medical History Ongoing Anemia Cholecystitis, chronic Diabetes Heart attack High blood pressure Impairment of balance Sensorineural hearing loss of left ear with normal hearing on right side Sudden sensorineural hearing loss Tinnitus of left ear Historical No qualifying data Procedure/Surgical History ???Stent placement Medication Administration Given Sodium Chloride 0.9%, 1000 mL, Hydration Bolus acetaminophen, 1000 mg, IV Piggyback aspirin, 324 mg, Oral lidocaine 5% topical film, 1 patches, Transdermal Allergies Diphendramine HCL??(Hyperactivity level) melatonin??(Restless legs syndrome) Social History Alcohol Current, Beer, 1-2 times per month Electronic Cigarette/Vaping Electronic Cigarette Use: Never. Home/Environment Lives with Spouse. Living situation: Home/Independent. Substance Use Never Tobacco Never tobacco user Tobacco Use:. Diagnostic Results XR Chest 1 View 09/11/2023 12:16 EDT XR Chest 1 View ?? 09/11/23 12:14:17 EXAM DESCRIPTION: XR Chest 1 View ?? 09/11/2023 ?? INDICATION: CHEST PAIN. BACK PAIN ?? COMPARISON: 06/04/2023 ?? FINDINGS: Clear lungs with no focal infiltrate or pulmonary edema. ?? Normal cardiomediastinal contour. ?? No significant pleural effusion or pneumothorax. ? IMPRESSION: No active chest disease. ? JOB #: [id number] Electronically Signed By: ?? Signed By: Vahe Espinoza MD Lab Results CBC and Differential?? LATEST RESULTS?? HISTORICAL RESULTS?? WBC?? 09/11/23 11:42?? 11.4 ??High?? 06/04/23?? 14.2 ??High?? RBC?? 09/11/23 11:42?? 6.49 ??High?? 06/04/23?? 5.92?? Hgb?? 09/11/23 11:42?? 13.1 ??Low?? 06/04/23?? 12.2 ??Low?? Hct?? 09/11/23 11:42?? 43.6?? 06/04/23?? 40.2 ??Low?? MCV?? 09/11/23 11:42?? 67.3 ??Low?? 06/04/23?? 67.9 ??Low?? MCH?? 09/11/23 11:42?? 20.2 ??Low?? 06/04/23?? 20.6 ??Low?? MCHC?? 09/11/23 11:42?? 30.1 ??Low?? 06/04/23?? 30.4 ??Low?? RDW-CV?? 09/11/23 11:42?? 19.7 ??High?? 06/04/23?? 19.0 ??High?? Platelets?? 09/11/23 11:42?? 281?? 06/04/23?? 285?? MPV?? 09/11/23 11:42?? 9.1?? 06/04/23?? 8.6?? Neutro Auto?? 09/11/23 11:42?? 77.5 ??High?? 06/04/23?? 82.0 ??High?? Lymph Auto?? 09/11/23 11:42?? 13.9 ??Low?? 06/04/23?? 10.1 ??Low?? [place] Auto?? 09/11/23 11:42?? 5.7?? 06/04/23?? 6.0?? Eos, Auto?? 09/11/23 11:42?? 1.80?? 06/04/23?? 1.10?? Basophil Auto?? 09/11/23 11:42?? 1.1 ??High?? 06/04/23?? 0.8?? Neutro Absolute?? 09/11/23 11:42?? 8.8 ??High?? 06/04/23?? 11.7 ??High?? Lymph Absolute?? 09/11/23 11:42?? 1.6?? 06/04/23?? 1.4?? [place] Absolute?? 09/11/23 11:42?? 0.6?? 06/04/23?? 0.9 ??High?? Eos Absolute?? 09/11/23 11:42?? 0.2?? 06/04/23?? 0.2?? Baso Absolute?? 09/11/23 11:42?? 0.1?? 06/04/23?? 0.1?? RBC Morph?? 09/11/23 11:42?? Abnormal Abnormal?? 06/04/23?? Abnormal Abnormal?? Anisocyte?? 09/11/23 11:42?? 1+?? 06/04/23?? 1+?? Hypochromia?? 09/11/23 11:42?? 1+ Abnormal?? 06/04/23?? 1+ Abnormal?? Microcyte?? 09/11/23 11:42?? 2+ Abnormal?? 06/04/23?? 2+ Abnormal?? Plt Estimation?? 09/11/23 11:42?? Normal?? 06/04/23?? Normal?? Plt Large?? 09/11/23 11:42?? Few Abnormal?? 03/08/23?? Moderate Abnormal?? Slide Review?? 09/11/23 11:42?? Morph Only?? 06/04/23?? Morph Only? Coagulation?? LATEST RESULTS?? HISTORICAL RESULTS?? Prothrombin Time?? 09/11/23 11:42?? 9.7?? 06/04/23?? 9.4?? INR?? 09/11/23 11:42?? 1.0?? 06/04/23?? 0.9?? Partial Thromboplastin Time?? 09/11/23 11:42?? 25.5?? 06/04/23?? 25.2? Routine Chemistry?? LATEST RESULTS?? HISTORICAL RESULTS?? Sodium Level?? 09/11/23 11:42?? 135 ??Low?? 06/04/23?? 134 ??Low?? Potassium Level?? 09/11/23 11:42?? 5.1?? 06/04/23?? 5.7 ??High?? Chloride Level?? 09/11/23 11:42?? 101?? 06/04/23?? 101?? CO2?? 09/11/23 11:42?? 26?? 06/04/23?? 23?? Alk Phos?? 09/11/23 11:42?? 80?? 06/04/23?? 77?? AST?? 09/11/23 11:42?? 18?? 06/04/23?? 39?? ALT?? 09/11/23 11:42?? 19?? 06/04/23?? 21?? BUN?? 09/11/23 11:42?? 31 ??High?? 06/04/23?? 33 ??High?? Glucose Level?? 09/11/23 11:42?? 274 ??High?? 06/04/23?? 306 ??High?? Creatinine Level?? 09/11/23 11:42?? 2.40 ??High?? 06/04/23?? 2.10 ??High?? BUN/Creat Ratio?? 09/11/23 11:42?? 12.9?? 06/04/23?? 15.7?? eGFR CKD-EPI?? 09/11/23 11:42?? 33 ??Low?? 06/04/23?? 39 ??Low?? Calcium Level?? 09/11/23 11:42?? 9.3?? 06/04/23?? 9.6?? Protein Total?? 09/11/23 11:42?? 7.3?? 06/04/23?? 7.8?? Albumin Level?? 09/11/23 11:42?? 3.8?? 06/04/23?? 4.1?? Globulin?? 09/11/23 11:42?? 3.5?? 06/04/23?? 3.7 ??High?? A/G Ratio?? 09/11/23 11:42?? 1.1?? 06/04/23?? 1.1?? Bilirubin Total?? 09/11/23 11:42?? 0.6?? 06/04/23?? 0.8?? Anion Gap?? 09/11/23 11:42?? 8.0?? 06/04/23?? 10.0?? Lipase Level?? 09/11/23 11:42?? 16?? 06/04/23?? 16?? Osmolality?? 09/11/23 11:42?? 286?? 06/04/23?? 287? Cardiac Isoenzymes?? LATEST RESULTS?? HISTORICAL RESULTS?? BNP?? 09/11/23 11:42?? 126 ??High?? 06/04/23?? 129 ??High?? Troponin-I HS?? 09/11/23 12:25?? 25 ??High?? 06/04/23?? 5314 ??Critical? UA Macroscopic?? LATEST RESULTS?? HISTORICAL RESULTS?? Urine Srce?? 09/11/23 13:50?? Clean Catch?? 07/08/22?? Clean Catch?? UA Color?? 09/11/23 13:50?? Yellow?? 07/08/22?? Yellow?? UA Appear?? 09/11/23 13:50?? Clear?? 07/08/22?? Clear?? UA Glucose?? 09/11/23 13:50?? >=1000?? 07/08/22?? >=1000 Abnormal?? UA Bili?? 09/11/23 13:50?? Negative?? 07/08/22?? Negative?? UA Ketones?? 09/11/23 13:50?? Negative?? 07/08/22?? Negative?? UA Spec Grav?? 09/11/23 13:50?? 1.020?? 07/08/22?? 1.025?? UA Blood?? 09/11/23 13:50?? Trace Abnormal?? 07/08/22?? Small Abnormal?? UA pH?? 09/11/23 13:50?? 6.00?? 07/08/22?? 5.50?? UA Protein?? 09/11/23 13:50?? >=300?? 07/08/22?? >=300 Abnormal?? UA Urobilinogen?? 09/11/23 13:50?? 0.2?? 07/08/22?? 0.2?? UA Nitrite?? 09/11/23 13:50?? Negative?? 07/08/22?? Negative?? UA Leuk Est?? 09/11/23 13:50?? Negative?? 07/08/22?? Negative?? UA Culture Ind?.?? 09/11/23 13:50?? No?? 07/08/22?? Yes? UA Microscopic?? LATEST RESULTS?? HISTORICAL RESULTS?? UA WBC?? 09/11/23 13:50?? 0-3?? 07/08/22?? 0-3?? UA RBC?? 09/11/23 13:50?? 4-6?? 07/08/22?? 0-3?? UA Bacteria?? 09/11/23 13:50?? None Seen?? 07/08/22?? Rare?? UA Hyal Cast?? 09/11/23 13:50?? 0-3?? 07/08/22?? 0-3?? UA Gran Cast?? 09/11/23 13:50?? 4-6 Abnormal? Electronically Signed on 09/11/2023 14:32 EDT [facility] Emergency department Discharge instructions * GLENIS Campbell: PERFORM Event Display: ED Discharge Information Authored Date: [id number] SHOSHANA SALGADO :1975 Age:47 years Sex:Male Visit Date:09/11/2023 Primary Care Physician: MARIBETH BARKER MD Discharge Instructions We would like to thank you for allowing us to assist you with your healthcare needs. The following includes patient education materials and information regarding your injury/illness. Diagnosis from Today's Visit Low back pain Discharge Vitals Temperature??(Temporal Artery) 97.5 ??F (36.4 ??C) Heart Rate??(Monitored) 85 Respiratory Rate?? 25 Blood Pressure?? 173/91?? SpO2?? 97% Height?? 70.00 in (177.80 cm) Weight?? 266.80 lb (121 kg) BMI?? 38.28 Allergies Diphendramine HCL??(Hyperactivity level) melatonin??(Restless legs syndrome) What to Do Next Instructions from Your Care Team Cardiac workup was reassuring today. ??Low back pain is likely muscular in nature and improved??significantly with Tylenol and lidocaine patches.?? I have sent a prescription of lidocaine patches to use at home along with??Tylenol.?? I will call you with the results of the urinalysis however??UTI??is unlikely since you are having no other symptoms. 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 You Need to Schedule the Following Appointments Follow Up with??Follow up with specialist When:??Within 24 Hours Follow Up with??MARIBETH BARKER MD When:??Within 1 week Where: [address] [place] [id number]- You were treated today on an emergency basis; it may be otero to contact your primary care provider to notify them of your visit today. You may have been referred to your regular doctor or a specialist, please follow up as instructed. If your condition worsens or you can't get in to see the doctor, contact the Emergency Department. Medications What How Much When Why Instructions Next Dose New lidocaine topical (lidocaine 5% topical film) 2 patch(es) Topical (on the skin) Every day Low back pain Duration: 7 Days remove patches after 12 hours ?? Pickup at [facility] [id number] Unchanged amoxicillin-clavulanate (amoxicillin-clavulanate 875 mg-125 mg oral tablet) 1 tab Oral (given by mouth) Every 12 hours Infected dental caries Duration: 10 Days Unchanged aspirin (aspirin 81 mg oral tablet, chewable) 1 tab Chewed Every evening Unchanged atorvastatin (atorvastatin 40 mg oral tablet) 1 tab Oral (given by mouth) Every evening Unchanged carvedilol (carvedilol 6.25 mg oral tablet) 1 tab Oral (given by mouth) 2 times a day Unchanged citalopram (citalopram 10 mg oral tablet) [...] 20-50 units per SLIDING SCALE ?? Unchanged prasugrel (prasugrel 10 mg oral tablet) 1 tab Oral (given by mouth) Every day Pharmacy Information [facility] [address]: [address] [place], [place] [id number] [phone] Tests Performed Radiology XR Chest 1 View 09/11/2023 12:16 EDT Medications and Immunizations Administered Given Sodium Chloride 0.9%, 1000 mL, Hydration Bolus acetaminophen, 1000 mg, IV Piggyback aspirin, 324 mg, Oral lidocaine 5% topical film, 1 patches, Transdermal Lab Test Name Test Result Date/Time WBC 11.4 K/mcL 09/11/2023 11:42 EDT RBC 6.49 Million/mcL 09/11/2023 11:42 EDT Hgb 13.1 g/dL 09/11/2023 11:42 EDT Hct 43.6 % 09/11/2023 11:42 EDT MCV 67.3 fL 09/11/2023 11:42 EDT MCH 20.2 pg 09/11/2023 11:42 EDT MCHC 30.1 g/dL 09/11/2023 11:42 EDT RDW-CV 19.7 % 09/11/2023 11:42 EDT Platelets 281 K/mcL 09/11/2023 11:42 EDT MPV 9.1 fL 09/11/2023 11:42 EDT Neutro Auto 77.5 % 09/11/2023 11:42 EDT Lymph Auto 13.9 % 09/11/2023 11:42 EDT [place] Auto 5.7 % 09/11/2023 11:42 EDT Eos, Auto 1.80 % 09/11/2023 11:42 EDT Basophil Auto 1.1 % 09/11/2023 11:42 EDT Neutro Absolute 8.8 K/mcL 09/11/2023 11:42 EDT Lymph Absolute 1.6 K/mcL 09/11/2023 11:42 EDT [place] Absolute 0.6 K/mcL 09/11/2023 11:42 EDT Eos Absolute 0.2 K/mcL 09/11/2023 11:42 EDT Baso Absolute 0.1 K/mcL 09/11/2023 11:42 EDT RBC Morph Abnormal 09/11/2023 11:42 EDT Anisocyte 1+ 09/11/2023 11:42 EDT Hypochromia 1+ 09/11/2023 11:42 EDT Microcyte 2+ 09/11/2023 11:42 EDT Plt Estimation Normal 09/11/2023 11:42 EDT Plt Large Few 09/11/2023 11:42 EDT Slide Review Morph Only 09/11/2023 11:42 EDT Prothrombin Time 9.7 seconds 09/11/2023 11:42 EDT INR 1.0 09/11/2023 11:42 EDT Partial Thromboplastin Time 25.5 seconds 09/11/2023 11:42 EDT Sodium Level 135 mmol/L 09/11/2023 11:42 EDT Potassium Level 5.1 mmol/L 09/11/2023 11:42 EDT Chloride Level 101 mmol/L 09/11/2023 11:42 EDT CO2 26 mmol/L 09/11/2023 11:42 EDT Alk Phos 80 IntlUnit/L 09/11/2023 11:42 EDT AST 18 IntlUnit/L 09/11/2023 11:42 EDT ALT 19 IntlUnit/L 09/11/2023 11:42 EDT BUN 31 mg/dL 09/11/2023 11:42 EDT Glucose Level 274 mg/dL 09/11/2023 11:42 EDT Creatinine Level 2.40 mg/dL 09/11/2023 11:42 EDT BUN/Creat Ratio 12.9 09/11/2023 11:42 EDT eGFR CKD-EPI 33 mL/min/1.73 m2 09/11/2023 11:42 EDT Calcium Level 9.3 mg/dL 09/11/2023 11:42 EDT Protein Total 7.3 g/dL 09/11/2023 11:42 EDT Albumin Level 3.8 g/dL 09/11/2023 11:42 EDT Globulin 3.5 g/dL 09/11/2023 11:42 EDT A/G Ratio 1.1 g/dL 09/11/2023 11:42 EDT Bilirubin Total 0.6 mg/dL 09/11/2023 11:42 EDT Anion Gap 8.0 09/11/2023 11:42 EDT Lipase Level 16 unit/L 09/11/2023 11:42 EDT Osmolality 286 mOsm/kg 09/11/2023 11:42 EDT BNP 126 pg/mL 09/11/2023 11:42 EDT Troponin-I HS 25 ng/L 09/11/2023 12:25 EDT Patient/Bevel Operator Signature Patient Name:SHOSHANA SALGADO I have received this information and my questions have been answered. Patient/Bevel Operator Name: Patient/Bevel Operator Signature: Relationship to Patient: Witness Name/Signature: Date: Electronically Signed on: 09/11/2023 14:18 EDTSigned by:ARCELIA Patient Care team information Care Team Personnel Name: MARIBETH BARKER MD Position: No Access Member Role: Primary Care Physician Address: Address: [address] [place] [address] Care Team Related Persons Name: GRETTA SALGADO Name: GRETTA SALGADO Address: Home [address] [place] [phone] [facility] Address: Mailing [address] [place] [phone]
--- OUTSIDE RECORDS SUMMARY | 2024-01-04 13:05 | XMS_ITS | Continuity of Care Document ---
Author Organization [facility] Address [address] [place] [address] Care Team Providers Care Chiller Hand Name Role Phone MARIBETH BRAKER MD Primary Care Physician Encounter [facility] NBR [id number] Date(s): 01/16/23 - 01/16/23 [facility] [address] [place] [address]- Encounter Diagnosis URI with cough and congestion(Discharge Diagnosis) - 01/16/23 TMJ tenderness, right(Discharge Diagnosis) - 01/16/23 Acute upper respiratory infection, unspecified(Final) - Arthralgia of right temporomandibular joint(Final) - Personal history of nicotine dependence(Final) - Discharge Disposition: Home or Self Care Attending Physician: GLENIS Guevara Allergies, Adverse Reactions, Alerts Substance Reaction Severity Status melatonin Restless legs syndrome Unknown Activ e Diphendramine HCL Hyperactivity level Unknown Act nomi Medications amoxicillin-clavulanate 875 mg-125 mg oral tablet 1 tab, Oral, every 12 hr, # 20 tab, 0 Refill(s), Pharmacy: [id number], 177, cm, 07/08/2313:39:00 [...] Most recent to oldest [Reference Range]: 1 Peripheral Pulse Rate [60-100 bpm] 75 bp m (01/16/23 9:30 AM) Blood Pressure [90-140/60-90 mmHg] 171/8 8mmHg *HI* (01/16/23 9:30 AM) Mean Arterial Pressure, Cuff [70-110 mmH g] 116 mmHg *HI* (01/16/23 9:30 AM) Weight 117.93 kg (01/16/23 9:30 AM) Weight Measured (lbs) 259.991 lb (01/16/23 9:30 AM) Weight Dosing 117.930 kg (01/16/23 9:30 AM) Height 177.80 cm (01/16/23 9:30 AM) Height/Length Measured (inches) 70 inch (01/16/23 9:30 AM) BSA Measured 2.41 m2 (01/16/23 9:30 AM) Body Mass Index 37.3 kg/m2 (01/16/23 9:30 AM) Social History Social History Type Response Tobacco Former tobacco user Tobacco Use:. 10-15 cigarettes a day per day. 7 year(s). Sex Physician Outpatient Note * GLENIS Guevara: PERFORM Event Display: Office Clinic Note Physician Authored Date: [id number] SHOSHANA SALGADO :1975 Age:47 years Sex:Male Visit Date:01/16/2023 Primary Care Physician: MARIBETH BARKER MD Chief Complaint Feeling sick for 5 days w/ cough and sore throat, R ear is very sore and hearing muffled. History of Present Illness Patient presents 5-day history of upper respiratory symptoms started with a sore throat then chest and nasal congestion runny nose. ??Cough has been productive. ??He also notes body aches, chills, fever.?? Overall symptoms have improved. ??No current fever or chills.?? He noticed today started withright ear pain just anterior to the ear. ??He denies any instrumentation or trauma.?? He did home CO VID testing 4 days ago which was negative. ??No known exposures or travel. Physical Exam Vitals & Measurements HR:??75??(Peripheral)?? BP:??171/88?? SpO2:??100%?? HT:??177.80??cm?? WT:??117.93??kg?? BMI:??37.3?? BSA:??2.41?? General: Alert and oriented, well nourished, no acute distress. Eye:??Pupils are reactive, conjunctiva clear. HENT: Normocephalic, TMs without redness or bulging good landmarks and cone of light. ??There is slight fluid. ??Bilateral., throat clear no exudate and uvula is midline. ??There is tenderness at theright TMJ. ??This reproduces the patient's symptoms. ??No palpable click. ??No crepitus. ??No dental tenderness.?? Site of dental extraction is healing well. Neck: Supple, non-tender, no lymphadenopathy Lungs: Clear to auscultation and percussion, non-labored respiration. Heart: Normal rate, regular rhythm, no murmur, gallop or edema. Abdomen: Soft, non-tender, non-distended, no masses, no CVA tenderness. Musculoskeletal: Normal range of motion and strength, no tenderness or swelling. Skin: Skin is warm, dry, no rashes or lesions in examined areas. Neurologic: Awake, alert and oriented X3, normal cognition and interaction. Psychiatric: Cooperative, appropriate mood and affect. Assessment/Plan 1.??URI with cough and congestion??J06.9 Resolving URI cough. ??With flulike symptoms. ??Recommend continued symptomatic care. 2.??TMJ tenderness, right??M26.621 Ear canals and TMs normal. ??He is tender over his right TMJ. ??Recommend jaw exercises, ice, anti-inflammatories. ??Recheck if not improving. ??No clinical signs for ear infection at this time. Patient Instructions Verbal instructions per patient request Problem List/Past Medical History Ongoing Anemia Cholecystitis, chronic COVID-19 Diabetes Heart attack High blood pressure Impairment of balance Sensorineural hearing loss of left ear with normal hearing on right side Sudden sensorineural hearing loss Tinnitus of left ear Historical No qualifying data Procedure/Surgical History ???Stent placement Medications amoxicillin-clavulanate 875 mg-125 mg oral tablet, 1 [...] per day. 7 year(s). Electronically Signed on 01/16/23 10:01 AM GLENIS Guevara * GLENIS Guevara: PERFORM Event Display: Office Clinic Note Physician Authored Date: Patient's blood pressures been elevated on multiple visits. ??He is aware of this. ??[facility] primary provider on lowering his blood pressure. Electronically Signed on 01/16/23 10:13 AM GLENIS Guevara Patient Care team information Care Team Personnel Name: MARIBETH BARKER MD Position: No Access Member Role: Primary Care Physician Address: Address: [address] [place] [address] Care Team Related Persons Name: GRETTA SALGADO Name: GRETTA SALGADO Address: Home [address] [phone] [facility] Address: Mailing [address] [place] [phone]
--- OUTSIDE RECORDS SUMMARY | 2024-01-04 13:05 | XMS_ITS | Continuity of Care Document ---
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 Role Phone MARIBETH BARKER MD Primary Care Physician Encounter LTTL_OR FIN NBR [id number] Date(s): 12/11/22 - 12/11/22 [facility] [address] [place] [address]- Encounter Diagnosis Pain due to dental caries(Discharge Diagnosis) - 12/11/22 Discharge Disposition: Home or Self Care Attending Physician: Katharina Martin MD Admitting Physician: Katharina Martin MD Allergies, Adverse Reactions, Alerts Substance Reaction Severity Status melatonin Restless legs syndrome Unknown Activ e Diphendramine HCL Hyperactivity level Unknown Act nomi Functional Status 12/11/22 Recent Travel History No recent travel Medications amoxicillin-clavulanate 875 mg-125 mg oral tablet 1 tab, Oral, every 12 hr, # 20 tab, 0 Refill(s), Pharmacy: [id number], 177, cm, 07/08/2313:39:00 EDT, Height/Length [...] every evening Start Date: 03/11/22 Status: Ordered Lidocaine Viscous 2% mucous membrane solution 0.1 g 5 mL, Topical, QID(ACHS), PRN as needed for mouth sore pain, X 5 days, # 100 mL, 0 Refill(s),12/16/22 5:13:00 PM CDT, Pharmacy: [id number], 177, cm, 12/11/22 17:10:00 EDT, Height/Length Dosing, 117, kg, 12/11/22 17:10:00 EDT, Weight Dosing Start Date: 12/11/22 Stop Date: 12/16/22 Status: Ordered lisinopril 10 mg oral tablet 10 mg = 1 tab, Oral, every evening Start Date: 03/11/22 Status: Ordered Mental Status 12/11/22 Eye Opening Response [place] Spontaneous ly Best Verbal Response [place] Oriented Best Motor Response [place] Obeys comman ds [place] Coma Score 15 Problem List Condition Confirmation [...] recent to oldest [Reference Range]: 1 2 Temperature Temporal Artery [36-38 Deg C ] 35.7 Deg C *LOW* (12/11/22 5:04 PM) Peripheral Pulse Rate [60-100 bpm] 98 bp m (12/11/22 6:21 PM) 110 bpm *HI* (12/11/22 5:04 PM) Respiratory Rate [12-24 br/min] 17 br/mi n (12/11/22 6:21 PM) 16 br/min (12/11/22 5:04 PM) Blood Pressure [90-140/60-90 mmHg] 185/9 7mmHg *HI* (12/11/22 6:21 PM) 197/85mmHg *HI* (12/11/22 5:04 PM) Mean Arterial Pressure, Cuff [65-140 mmH g] 126 mmHg (12/11/22 6:21 PM) 122 mmHg (12/11/22 5:04 PM) Weight 117.00 kg (12/11/22 5:04 PM) Weight Dosing 117.00 kg (12/11/22 5:10 PM) Height 177.000 cm (12/11/22 5:04 PM) Height/Length Dosing 177.000 cm (12/11/22 5:10 PM) Body Mass Index 37.000 kg/m2 (12/11/22 5:04 PM) Social History Social History Type Response Tobacco Former tobacco user Tobacco Use:. 10-15 cigarettes a day per day. 7 year(s). Sex Hospital Discharge Instructions Patient Education 12/11/2022 17:16:42 Dental Pain Dental Pain Dental pain is often a sign that something is wrong with your teeth or gums. It is also something that can occur following dental treatment. If you have dental pain, it is important to contact your dental care provider, especially if the cause of the pain has not been determined. Dental pain may beof varying intensity and can be caused by many things, including: ??? Tooth decay (cavities or caries). Cavities are caused by bacteria that produce acids that irritate the nerve of your tooth, making it sensitive to air and hot or cold temperatures. This eventually causes discomfort or pain. ??? Abscess or infection. Once the bacteria reach the inner part of the tooth (pulp), a bacterial infection (dental abscess) can occur. Pus typically collects at the end of the root of a tooth. ??? Injury. ??? A crack in the tooth. ??? Gum recession exposing the root, and possibly the nerves, of a tooth. ??? Gum (periodontal)disease. ??? Abnormal grinding or clenching. ??? Poor or improper home care. ??? An unknown reason (idiopathic). Your pain may be mild or severe. It may occur when you are: ??? Chewing. ??? Exposed to hot or cold temperatures. ??? Eating or drinking sugary foods or beverages, such as soda or candy. Your pain may be constant, or it may come and go without cause. Follow these instructions at home: The following actions may help to lessen any discomfort that you are feeling before or after getting dental care. Medicines ??? Take hknb-elf-xivkmru and prescription medicines only as told by your dental care provider. ??? If you were prescribed an antibiotic medicine, take it as told by your dental care provider. Donot stop taking the antibiotic even if you start to feel better. Eating and drinking Avoid foods or drinks that cause you pain, such as: ??? Very hot or very cold foods or drinks. ??? Sweet or sugary foods or drinks. Managing pain and swelling ??? Ice can sometimes be used to reduce pain and swelling, especially if the pain is following dental treatment. ??? If directed, put ice on the painful area of your face. To do this: ??? Put ice in a plastic bag. ??? Place a towel between your skin and the bag. ??? Leave the ice on for 20 minutes, 2???3 times a day. ??? Remove the ice if your skin turns bright red. This is very important. If you cannot feel pain, heat, or cold, you have a greater risk of damage to the area. Brushing your teeth ??? To keep your mouth and gums healthy, brush your teeth twice a day using a fluoride toothpaste. ??? Use a toothpaste made for sensitive teeth as directed by your dental care provider, especially if the root is exposed. ??? Always brush your teeth with a soft-bristled toothbrush. This will help prevent irritation to your gums. General instructions ??? Floss at least once a day. ??? Do not apply heat to the outside of the face. ??? Gargle with a mixture of salt and water 3???4 times a day or as needed. To make salt water, completely dissolve ?1 tsp (3???6 g) of salt in 1 cup (237 mL) of warm water. ??? Keep all follow-up visits. This is important. Contact a dental care provider if: ??? You have any unexplained dental pain. ??? Your pain is not controlled with medicines. ??? Your symptoms get worse. ??? You have new symptoms. Get help right away if: ??? You are unable to open your mouth. ??? You are having trouble breathing or swallowing. ??? You have a fever. ??? You notice that your face, neck, or jaw is swollen. These symptoms may represent a serious problem that is an emergency. Do not wait to see if the symptoms will go away. Get medical help right away. Call your local emergency services (911 in the [place] Do not drive yourself to the hospital. Summary ??? Dental pain may be caused by many things, including tooth decay and infection. ??? Your pain may be mild or severe. ??? Take mpnl-ery-rnvowse and prescription medicines only as told by your dental care provider. ??? Watch your dental pain for any changes. Let your dental care provider know if your symptoms getworse. This information is not intended to replace advice given to you by your health care provider. Make sure you discuss any questions you have with your health care provider. Document Revised: 11/11/2020 Document Reviewed: 11/11/2020 [employer] Patient Education ?? 2022 [employer]. 12/11/2022 17:16:40 Dental Caries, Adult Dental Caries, Adult Dental caries or cavities are areas of decay in the outer layers (enamel and dentin) of your tooth.When you eat or drink sugary foods and liquids, the natural bacteria in your mouth break down thosesugars and produce a lot of acids. The acids destroy the protective layer of your tooth, leading totooth decay. It is important to treat your tooth decay as soon as possible. Untreated dental caries can spread decay and may lead to a painful infection. Keeping your mouth clean (good oral hygiene) by brushing regularly with fluoride toothpaste, flossing, and getting regular dental checkups can help reduce thebacteria and prevent dental caries. What are the causes? Dental caries are caused by the acid that is produced when bacteria in your mouth break down sugaryfoods and liquids. What increases the risk? This condition is more likely to develop in people who: ??? Drink a lot of sugary liquids, including alcoholic drinks, such as champagne. ??? Eat a lot of sweets and carbohydrates. ??? Drink water that is not treated with fluoride. ??? Have poor oral hygiene. ??? Have deep grooves in their teeth. ??? Take certain medicines that decrease saliva. What are the signs or symptoms? Symptoms of dental caries include: ??? White, brown, or black spots on the teeth. ??? Pain as the decay progresses. ??? Swelling or bleeding in the gums. How is this diagnosed? This condition may be diagnosed based on: ??? Your signs and symptoms. ??? Oral exams. This includes probing the hardness of the tooth with an instrument called a dental explorer. ??? Dental X-rays to look for dental caries between teeth. This is also used to confirm the diagnosis. Sometimes special lights, dyes, or probes, which use electrical conductivity or laser reflection, can assist in finding dental caries. How is this treated? Treatment for dental caries usually involves a procedure to remove the decay and restore the tooth.Restoring the tooth using a filling can be done in the dentist's office. More complex restorations can be created in a lab. Follow these instructions at home: ??? Practice good oral hygiene. This keeps your mouth and gums healthy. ??? Use a fluoride-containing toothpaste to brush your teeth twice a day. Floss once a day. ??? If your dental caries have caused an infection, you may be given an antibiotic medicine. Take it as told by your dentist. Do not stop taking the antibiotic even if you start to feel better. ??? Keep all follow-up visits as told by your dentist. This is important. ??? Follow-up visits include regular cleanings. You will be told how often this needs to be done. How is this prevented? To prevent dental caries: ??? Julian your teeth every morning and night with fluoride toothpaste. ??? Floss your teeth once a day. ??? Get regular dental cleanings. ??? If told by your dentist, wash your mouth with prescription mouthwash (chlorhexidine) and apply topical fluoride to your teeth. ??? Drink water that has fluoride added to it. ??? Drink water instead of sugary drinks. ??? Eat healthy meals and snacks. ??? If prescribed by your dentist, have additional in-office fluoride treatments and sealants placed on your teeth. Contact a health care provider if: ??? You have symptoms of tooth decay. Summary ??? Dental caries or cavities are areas of decay in the outer layers of your tooth. It is importantto treat your tooth decay as soon as possible. ??? This condition is caused by the acid that is produced when bacteria in your mouth break down sugary foods and liquids. ??? To prevent this condition, practice good oral hygiene. This keeps your mouth and gums healthy by brushing and flossing. Use fluoride toothpaste. ??? Take an antibiotic to treat an infection, if told by your dentist. Do not stop taking the antibiotic even if your condition gets better. ??? Have regular dental cleanings and keep all follow-up visits. This information is not intended to replace advice given to you by your health care provider. Make sure you discuss any questions you have with your health care provider. Document Revised: 01/24/2020 Document Reviewed: 01/24/2020 [employer] Patient Education ?? 2022 [employer]. Follow Up Care 12/11/2022 17:04:12 With:Follow up with specialist Address:Unknown When:1 month With:Drink Fluids Address:Unknown When:1 month With:Tylenol/Motrin for Pain/Fever Relief Address:Unknown When:1 month With:MARIBETH BARKER MD Address: [address] [place] [id number]- When:1 month Physician Emergency department Note * GLENIS Campbell: PERFORM Event Display: ED Note Physician Authored Date: [id number] SHOSHANA SALGADO :1975 Age:47 years Sex:Male Visit Date:12/11/2022 Primary Care Physician: MARIBETH BARKER MD Basic Information Time Seen: GLENIS Campbell / 12/11/2022 17:06 Chief Complaint pts 3rd time coming in for same tooth pain. pain today is 10/10. unable to get into dentist till dec 27. History Of Present Illness: Is a 47-year-old male who was??experiencing chronic dental pain here for continued pain.?? Most of the pain is around??teeth 30 31 and 32. ??He has been seen here twice??for this concern and was seen??on December 06 by his dentist who referred him to an oral surgeon. ??This appointment is on the 6.?? Dentist also started him on amoxicillin. ??He did find some relief??with his last dental block. He has been afebrile. ??Denies any??dysphagia or odynophagia.?? Neck pain or stiffness chest pain or dyspnea. Review of Systems: See HPI Physical Exam Vitals & Measurements T:??35.7?C ??(Temporal Artery)?? HR:??98??(Peripheral)?? RR:??17?? BP:??185/97?? SpO2:??98%?? HT:??177.000??cm?? WT:??117.00??kg?? BMI:??37.000?? Pain Score:??10?? O2 Therapy:??Room air?? General: Patient is alert and engaging, appears well. Is in no acute distress. Speaking comfortablyin full sentences.?? Constitutional: No fevers, chills or diaphoresis.?? HEENT: Head normocephalic and atraumatic. Neck supple with FROM w/o lymphadenopathy caries present on??teeth 30, 31 and 32. ??Tender to palpation. ??No surrounding erythema or edema of the gumline.??No abscesses present. Respiratory: ??No obvious work of breathing, regular rate. Cardiovascular: Heart regular rate. Extremities: No obvious deformities. FROM.?? Integumentary: Skin warm and pink. No rashes or ecchymosis present.?? Neuro: CN III-XII grossly intact.?? Psychiatric: acting appropriate for age and circumstance. Normal mood without obvious ??affect.?? Medical Decision Making: Patient is a pleasant 47-year-old male here with continued dental pain. ??He appears in pain but isin no acute distress. ??Vitals obtained and reviewed. ??He has continued elevated blood pressure which is similar to his previous visits. ??He has been started on a??antibiotic by his dentist. ??He is willing??to??have another??dental block done. ??Periapical block of teeth??#30 and 32??patient found some relief and tolerated the procedure well. ??Sent in a prescription of viscous lidocaine and will continue with Tylenol ibuprofen. Procedure Periapical block??done??at the base of??tooth #30 and tooth #32.?? After numbing with lidocaine??2 mL of 0.5% bupivacaine with epinephrine??was injected??after clear aspiration.?? Patient did find??significant relief of the pain however was not completely resolved after the block. ??Tolerated the procedure well. No Qualifying Data Assessment/Plan 1.??Pain due to dental caries??K02.9 Some relief after dental block. ??Continue with Tylenol ibuprofen and viscous lidocaine prescription sent. ??Dental appointment??on December 26. ??Return precautions understood. Ordered: Discharge Patient, 12/11/22 18:15:00 EDT ?? Orders: Lidocaine Viscous 2% mucous membrane solution, 0.1 g 5 mL, Topical, QID(ACHS), PRN as needed for mouth sore pain, X 5 days, # 100 mL, 0 Refill(s), 12/16/22 18:13:00 EDT, Pharmacy: [id number], 177, cm, 12/11/22 17:10:00 EDT, Height/Length Dosing, 117, kg, 12/11/22 17:10:00 EDT, Weight Do... Patient Education Dental Pain Dental Caries, Adult Follow Up With When Contact Information Follow up with specialist Within 1 month Additional Instructions: Drink Fluids Within 1 month Additional Instructions: Tylenol/Motrin for Pain/Fever Relief Within 1 month Additional Instructions: MJ WILLS, MARIBETH Constantino Within [address] [place] [address]- Additional Instructions: Medication Reconciliation New Prescription lidocaine topical (Lidocaine Viscous 2% mucous membrane solution)5 Milliliters Topical (on the skin) 4 times a day (before meals and at bedti as needed as needed for mouth sore pain for 5 Days. Refills: 0. ?? Unchanged amoxicillin-clavulanate (amoxicillin-clavulanate 875 mg-125 mg oral tablet)1 tab Oral (given by mouth) every 12 hours for 10 Days. Refills: 0. ?? aspirin (aspirin 81 mg oral tablet, chewable)1 tab Chewed every evening. ?? atorvastatin (atorvastatin 40 mg oral tablet)1 tab Oral (given by mouth) every evening. ?? citalopram (citalopram 10 mg oral tablet)1 [...] meals. 20-50 units per SLIDING SCALE. ?? lisinopril (lisinopril 10 mg oral tablet)1 tab Oral (given by mouth) every evening. Problem List/Past Medical History Ongoing Anemia Cholecystitis, chronic COVID-19 Diabetes Heart attack High blood pressure Impairment of balance Sensorineural hearing loss of left ear with normal hearing on right side Sudden sensorineural hearing loss Tinnitus of left ear Historical No qualifying data Procedure/Surgical History ???Stent placement Allergies Diphendramine HCL??(Hyperactivity level) melatonin??(Restless legs syndrome) Social History Alcohol Current, Beer, 1-2 times per month Electronic Cigarette/Vaping Electronic Cigarette Use: Never. Home/Environment Lives with Spouse. Living situation: Home/Independent. Tobacco Former tobacco user Tobacco Use:. 10-15 cigarettes a day per day. 7 year(s). Electronically Signed on 12/11/22 07:43 PM GLENIS Campbell Emergency department Discharge instructions * GLENIS Campbell: PERFORM Event Display: ED Discharge Information Authored Date: [id number] SHOSHANA SALGADO :1975 Age:47 years Sex:Male Visit Date:12/11/2022 Primary Care Physician: MARIBETH BARKER MD Discharge Instructions We would like to thank you for allowing us to assist you with your healthcare needs. The following includes patient education materials and information regarding your injury/illness. Diagnosis from Today's Visit Pain due to dental caries Discharge Vitals Temperature??(Temporal Artery) 96.3 ??F (35.7 ??C) Heart Rate??(Peripheral) 110 Respiratory Rate?? 16 Blood Pressure?? 197/85?? Height?? 69.69 in (177.000 cm) Weight?? 257.98 lb (117.00 kg) BMI?? 37.000 Allergies Diphendramine HCL??(Hyperactivity level) melatonin??(Restless legs syndrome) What to Do Next Instructions from Your Care Team Please complete your??prescription??of the amoxicillin and continue to take Tylenol and ibuprofen for the pain. ??Have also sent a prescription for viscous lidocaine to swish and spit. ??Please keep your appointment with your??dentist on December 26. ??Return with any worsening of symptoms. You Need to Schedule the Following Appointments Follow Up with??Follow up with specialist When:??Within 1 month Follow Up with??Drink Fluids When:??Within 1 month Follow Up with??Tylenol/Motrin for Pain/Fever Relief When:??Within 1 month Follow Up with??MARIBETH BARKER MD When:??Within 1 month Where: [address] [place] [address]- You were treated today on an [...] Why Instructions Next Dose New lidocaine topical (Lidocaine Viscous 2% mucous membrane solution) 5 Milliliters Topical (on the skin) 4 times a day (before meals and at bedti as needed for as needed for mouth sore pain Duration: 5 Days Pickup at [id number] Unchanged amoxicillin-clavulanate (amoxicillin-clavulanate 875 mg-125 mg oral [...] tab Oral (given by mouth) Every evening Pharmacy Information [facility]: [address] [place], [place] [id number] [phone] Education Materials Dental Pain Dental pain is often a sign that something is wrong with your teeth or gums. It is also something that can occur following dental treatment. If you have dental pain, it is important to contact your dental care provider, especially if the cause of the pain has not been determined. Dental pain may beof varying intensity and can be caused by many things, including: ? Tooth decay (cavities or caries). Cavities are caused by bacteria that produce acids that irritate the nerve of your tooth, making it sensitive to air and hot or cold temperatures. This eventually causes discomfort or pain. ? Abscess or infection. Once the bacteria reach the inner part of the tooth (pulp), a bacterial infection (dental abscess) can occur. Pus typically collects at the end of the root of a tooth. ? Injury. ? A crack in the tooth. ? Gum recession exposing the root, and possibly the nerves, of a tooth. ? Gum (periodontal)disease. ? Abnormal grinding or clenching. ? Poor or improper home care. ? An unknown reason (idiopathic). Your pain may be mild or severe. It may occur when you are: ? Chewing. ? Exposed to hot or cold temperatures. ? Eating or drinking sugary foods or beverages, such as soda or candy. Your pain may be constant, or it may come and go without cause. Follow these instructions at home: The following actions may help to lessen any discomfort that you are feeling before or after getting dental care. Medicines ? Take fkcg-euz-wxhgqvd and prescription medicines only as told by your dental care provider. ? If you were prescribed an antibiotic medicine, take it as told by your dental care provider. Do notstop taking the antibiotic even if you start to feel better. Eating and drinking Avoid foods or drinks that cause you pain, such as: ? Very hot or very cold foods or drinks. ? Sweet or sugary foods or drinks. Managing pain and swelling ? Ice can sometimes be used to reduce pain and swelling, especially if the pain is following dental treatment. ? If directed, put ice on the painful area of your face. To do this: ? Put ice in a plastic bag. ? Place a towel between your skin and the bag. ? Leave the ice on for 20 minutes, 2???3 times a day. ? Remove the ice if your skin turns bright red. This is very important. If you cannot feel pain, heat, or cold, you have a greater risk of damage to the area. Brushing your teeth ? To keep your mouth and gums healthy, brush your teeth twice a day using a fluoride toothpaste. ? Use a toothpaste made for sensitive teeth as directed by your dental care provider, especially if the root is exposed. ? Always brush your teeth with a soft-bristled toothbrush. This will help prevent irritation to your gums. General instructions ? Floss at least once a day. ? Do not apply heat to the outside of the face. ? Gargle with a mixture of salt and water 3???4 times a day or as needed. To make salt water, completely dissolve ?1 tsp (3???6 g) of salt in 1 cup (237 mL) of warm water. ? Keep all follow-up visits. This is important. Contact a dental care provider if: ? You have any unexplained dental pain. ? Your pain is not controlled with medicines. ? Your symptoms get worse. ? You have new symptoms. Get help right away if: ? You are unable to open your mouth. ? You are having trouble breathing or swallowing. ? You have a fever. ? You notice that your face, neck, or jaw is swollen. These symptoms may represent a serious problem that is an emergency. Do not wait to see if the symptoms will go away. Get medical help right away. Call your local emergency services (911 in the [place] Do not drive yourself to the hospital. Summary ? Dental pain may be caused by many things, including tooth decay and infection. ? Your pain may be mild or severe. ? Take ujbw-aue-yedmzgw and prescription medicines only as told by your dental care provider. ? Watch your dental pain for any changes. Let your dental care provider know if your symptoms get worse. This information is not intended to replace advice given to you by your health care provider. Make sure you discuss any questions you have with your health care provider. Document Revised: 11/11/2020 Document Reviewed: 11/11/2020 [employer] Patient Education ?? 2022 [employer] Dental Caries, Adult Dental caries or cavities are areas of decay in the outer layers (enamel and dentin) of your tooth.When you eat or drink sugary foods and liquids, the natural bacteria in your mouth break down thosesugars and produce a lot of acids. The acids destroy the protective layer of your tooth, leading totooth decay. It is important to treat your tooth decay as soon as possible. Untreated dental caries can spread decay and may lead to a painful infection. Keeping your mouth clean (good oral hygiene) by brushing regularly with fluoride toothpaste, flossing, and getting regular dental checkups can help reduce thebacteria and prevent dental caries. What are the causes? Dental caries are caused by the acid that is produced when bacteria in your mouth break down sugaryfoods and liquids. What increases the risk? This condition is more likely to develop in people who: ? Drink a lot of sugary liquids, including alcoholic drinks, such as champagne. ? Eat a lot of sweets and carbohydrates. ? Drink water that is not treated with fluoride. ? Have poor oral hygiene. ? Have deep grooves in their teeth. ? Take certain medicines that decrease saliva. What are the signs or symptoms? Symptoms of dental caries include: ? White, brown, or black spots on the teeth. ? Pain as the decay progresses. ? Swelling or bleeding in the gums. How is this diagnosed? This condition may be diagnosed based on: ? Your signs and symptoms. ? Oral exams. This includes probing the hardness of the tooth with an instrument called a dental explorer. ? Dental X-rays to look for dental caries between teeth. This is also used to confirm the diagnosis. Sometimes special lights, dyes, or probes, which use electrical conductivity or laser reflection, can assist in finding dental caries. How is this treated? Treatment for dental caries usually involves a procedure to remove the decay and restore the tooth.Restoring the tooth using a filling can be done in the dentist's office. More complex restorations can be created in a lab. Follow these instructions at home: ? Practice good oral hygiene. This keeps your mouth and gums healthy. ? Use a fluoride-containing toothpaste to brush your teeth twice a day. Floss once a day. ? If your dental caries have caused an infection, you may be given an antibiotic medicine. Take it astold by your dentist. Do not stop taking the antibiotic even if you start to feel better. ? Keep all follow-up visits as told by your dentist. This is important. ? Follow-up visits include regular cleanings. You will be told how often this needs to be done. How is this prevented? To prevent dental caries: ? Julian your teeth every morning and night with fluoride toothpaste. ? Floss your teeth once a day. ? Get regular dental cleanings. ? If told by your dentist, wash your mouth with prescription mouthwash (chlorhexidine) and apply topical fluoride to your teeth. ? Drink water that has fluoride added to it. ? Drink water instead of sugary drinks. ? Eat healthy meals and snacks. ? If prescribed by your dentist, have additional in-office fluoride treatments and sealants placed onyour teeth. Contact a health care provider if: ? You have symptoms of tooth decay. Summary ? Dental caries or cavities are areas of decay in the outer layers of your tooth. It is important to treat your tooth decay as soon as possible. ? This condition is caused by the acid that is produced when bacteria in your mouth break down sugaryfoods and liquids. ? To prevent this condition, practice good oral hygiene. This keeps your mouth and gums healthy by brushing and flossing. Use fluoride toothpaste. ? Take an antibiotic to treat an infection, if told by your dentist. Do not stop taking the antibiotic even if your condition gets better. ? Have regular dental cleanings and keep all follow-up visits. This information is not intended to replace advice given to you by your health care provider. Make sure you discuss any questions you have with your health care provider. Document Revised: 01/24/2020 Document Reviewed: 01/24/2020 [employer] Patient Education ?? 2022 [employer] Patient/Laboratory Equipment Cleaner Signature Patient Name:SHOSHANA SALGADO I have received this information and my questions have been answered. Patient/Laboratory Equipment Cleaner Name: Patient/Laboratory Equipment Cleaner Signature: Relationship to Patient: Witness Name/Signature: Date: Electronically Signed on: 12/11/2022 18:18 EDTSigned by:ARCELIA Patient Care team information Care Team Personnel Name: MARIBETH BARKER MD Position: No Access Member Role: Primary Care Physician Address: Address: [address] [place] [id number] Name: GLENIS Campbell Position: Physician Member Role: Physician Address: Address: [address] [place] [id number] Name: Meena Granados Position: Nurse Member Role: ED Nurse Care Team Related Persons Name: GRETTA SALGADO Name: GRETTA SALGADO Address: Home [address] [phone] [facility] Address: Mailing [address] [place] [phone]
--- OUTSIDE RECORDS SUMMARY | 2024-01-04 13:05 | XMS_ITS | Continuity of Care Document ---
Author Organization [facility] Address [address] [place] [address] Support Name Relationship Address Phone GRETTA SALGADO Personal Relationship Unknown Emily vailable BRILL, AARTI Constantino Personal Relationship Unknown Unav ailable BRILL, AARTI Constantino Personal Relationship Unknown Unav ailable BRILL, GRETTA Personal Relationship Unknown Unava ilable Encounter [facility] NBR [id number] Date(s): 12/21/23 - 12/22/[address] [address]- Encounter Diagnosis Complications, mechanical, catheter, dialysis(Discharge Diagnosis) - 12/21/23 Discharge Disposition: Home f/u External Provider Attending Physician: Minesh Edwards DO Admitting Physician: Minesh Edwards DO Allergies, Adverse Reactions, Alerts Substance Criticality Severity Reaction Reaction Severity Status melatonin Unable to assess criticality Unknown Restless legs syndrome Active Diphendramine HCL Unable to assess criticality Unknown Hyperactivity level Active Assessment and Plan Extracted from: Title:ED Provider Note Author:Minesh Edwards DO Date:12/22/23 Assessment/Plan 1.??Complications, mechanical, catheter, dialysis??T82.49XA Ordered: Percocet 5 mg-325 mg oral tablet, 1 tab, Oral, every 6 hr, PRN as needed for pain, X 5 days, # 10 tab, 0 Refill(s), 12/27/23 0:13:00 EST, Pharmacy: [id number], 177, cm, 12/21/23 23:09:00 EDT, Height, 117, kg, 12/21/23 23:12:00 EDT, Weight Dosing ?? Orders: morphine, 5 mg = 2.5 mL, IV Push, Injection, every 20 min for 3 doses, PRN pain, moderate, First Dose: 12/21/23 23:33:00 EDT, Stop Date: Limited # of times, Physician Stop, Routine Discharge Patient, 12/22/23 0:16:00 EDT, Home Independently Patient Education Dialysis Vascular Access Malfunction Follow Up With When Contact Information [facility] Within 1 week 1 [facility] [place] [phone] ?? Additional Instructions: Thank you for allowing us to evaluate you today in the emergency department.?? Your fluid balance, electrolytes, hemodynamics, and temperature were all within normal limits. ??Your dialysis catheter showed no discontinuity??and clearly is functioning properly as??you just had??dialysis.?? The your chest x-ray does not demonstrate any other concerning??issues.?? I recommend reaching back out to nephrology tomorrow??to discuss next Epson management. ??In the meantime I will bridge you with some additional pain control measures but implore you to??try??1000 mg of Tylenol??every 4 hours not to exceed 4000 mg in 24 hours??and if you are allowed now that you are on dialysis use ibuprofen??800 mg every 6 hours with food.?? I also encourage you to place ice over the area which helps reduce any swelling or discomfort.?? If these measures are not working then you can proceed with oxycodone 5 mg??1 tab every 6 hours for more moderate to severe discomfort.?? I anticipate as the catheter seats??into your chest wall this??discomfort she will subside.?? Of course if you have any concerns of new or worsening illness please come back to the emergency department for??evaluation. Future Appointments Medications amiodarone 200 mg oral tablet 200 mg = 1 tab, Oral, BID, # 180 tab, 0 Refill(s) Start Date: 12/01/23 Status: Ordered aspirin 81 mg oral tablet, chewable 81 mg = 1 tab, Chewed, every evening Start Date: 03/11/22 Status: Ordered atorvastatin 40 mg oral tablet 40 mg = 1 tab, Oral, every evening Start Date: 03/11/22 Status: Ordered carvedilol 6.25 mg oral tablet 6.25 mg = 1 tab, Oral, BID, # 180 tab, 0 Refill(s) Start Date: 09/11/23 Status: Ordered cephalexin 500 mg oral capsule 500 mg = 1 cap, Oral, QID, # 20 cap, 0 Refill(s), Pharmacy: [id number], 177.8, cm, 09/11/23 11:32:00 EDT, Height, 121, kg, 09/11/23 11:39:00 EDT, Weight Dosing Start Date: 10/18/23 Stop Date: 10/23/23 Status: Ordered citalopram 10 mg oral tablet 10 mg = 1 tab, Oral, every evening Start Date: 03/11/22 Status: Ordered clopidogrel 75 mg oral tablet 75 mg = 1 tab, Oral, Daily, # 30 tab, 0 Refill(s) Start Date: 12/01/23 Status: Ordered Eliquis 2.5 mg oral tablet 2.5 mg = 1 tab, Oral, BID, # 60 tab, 0 Refill(s) Start Date: 12/01/23 Status: Ordered Farxiga 5 mg oral tablet 5 mg = 1 tab, Oral, Daily Start Date: 07/08/22 Status: Ordered FeroSul 325 mg (65 mg elemental iron) oral tablet TAKE 1 TABLET BY MOUTH EVERY OTHER DAY Start Date: 12/01/23 Status: Ordered gabapentin 300 mg oral capsule 600 mg = 2 cap, Oral, every evening Start Date: 03/11/22 Status: Ordered Insulin Lispro KwikPen 100 units/mL injectable solution Subcutaneous, TID(AC), 20-50 units per SLIDING SCALE Start Date: 03/11/22 Status: Ordered Lantus Solostar Pen 100 units/mL subcutaneous solution 0.2 unit/kg =, Subcutaneous, every night at bedtime, # 10 mL, 0 Refill(s) Start Date: 12/01/23 Status: Ordered Levemir FlexTouch 100 units/mL subcutaneous solution 30 units =, Subcutaneous, every evening Start Date: 03/11/22 Status: Ordered losartan 50 mg oral tablet TAKE 1 TABLET BY MOUTH TWICE DAILY Start Date: 12/01/23 Status: Ordered oxyCODONE 5 mg oral tablet TAKE 1 TABLET BY MOUTH EVERY 8 HOURS NEEDED FOR PAIN Start Date: 12/01/23 Status: Ordered pantoprazole 40 mg oral delayed release tablet TAKE 1 TABLET BY MOUTH ONCE DAILY Start Date: 12/10/23 Status: Ordered Percocet 5 mg-325 mg oral tablet 1 tab, Oral, every 6 hr, PRN as needed for pain, X 5 days, # 10 tab, 0 Refill(s), 12/26/23 11:13:00 PM BRAND PLANNER, Pharmacy: [id number], 177, cm, 12/21/23 23:09:00 EDT, Height, 117, kg, 12/21/23 23:12:00 EDT, Weight Dosing Start Date: 12/22/23 Stop Date: 12/27/23 Status: Ordered sevelamer carbonate 800 mg oral tablet TAKE 1 TABLET BY MOUTH THREE TIMES DAILY WITH MEALS Start Date: 12/01/23 Status: Ordered temazepam 7.5 mg oral capsule 7.5 mg = 1 cap, Oral, every night at bedtime, PRN as needed for sleep, # 30 cap, 0 Refill(s), 01/01/24 10:33:00 PM BRAND PLANNER, Pharmacy: [id number], 177.8, cm, 12/01/23 21:30:00 EDT, Height, 122.47, kg, 12/01/23 21:35:00 EDT, Weight Dosing Start Date: 12/01/23 Stop Date: 01/01/24 Status: Ordered torsemide 20 mg oral tablet 20 mg = 1 tab, Oral, Daily, # 30 tab, 0 Refill(s) Start Date: 12/01/23 Status: Ordered Vitamin D3 5000 intl units oral capsule TAKE 1 CAPSULE BY MOUTH ONCE DAILY Start Date: 12/01/23 Status: Ordered Mental Status 12/21/23 Eye Opening Response Maupin Spontaneous ly Best Verbal Response Maupin Oriented Best Motor Response Loida Obeys comman ds Maupin Coma Score 15 Problem List Condition Confirmation [...] placement Completed Results Laboratory List Name Date .Morphology (LTTL) 12/21/23 Basic Metabolic Panel 12/21/23 CBC w/ Diff 12/21/23 Magnesium Level 12/21/23 Automated Diff 12/21/23 Most recent to oldest [Reference Range]: 1 WBC [4.8-10.8 K/mcL] 10.2 K/mcL (12/21/23 11:37 PM) RBC [4.70-6.10 Million/mcL] 4.18 Million /mcL *LOW* (12/21/23 11:37 PM) Neutro Auto [42.2-75.2 %] 77.2 % *HI* (12/21/23 11:37 PM) Lymph Auto [20.5-51.1 %] 8.9 % *LOW* (12/21/23 11:37 PM) [place] Auto [1.7-9.3 %] 11.4 % *HI* (12/21/23 11:37 PM) Basophil Auto [0.0-0.8 %] 1.4 % *HI* (12/21/23 11:37 PM) BUN [7-25 mg/dL] 48 mg/dL *HI* (12/21/23 11:37 PM) Glucose Level [70-109 mg/dL] 263 mg/dL *HI* (12/21/23 11:37 PM) Potassium Level [3.5-5.1 mmol/L] 4.0 mmo l/L (12/21/23 11:37 PM) Baso Absolute [0.00-0.20 K/mcL] 0.10 K/m cL (12/21/23 11:37 PM) MCV [80.0-94.0 fL] 70.5 fL *LOW* (12/21/23 11:37 PM) RBC Morph [Normal] Abnormal *ABN* (12/21/23 11:37 PM) MCHC [32.0-37.0 g/dL] 30.4 g/dL *LOW* (12/21/23 11:37 PM) Osmolality [275-295 mOsm/kg] 290 mOsm/kg (12/21/23 11:37 PM) Sodium Level [136-145 mmol/L] 134 mmol/L *LOW* (12/21/23 11:37 PM) Lymph Absolute [1.2-3.4 K/mcL] 0.9 K/mcL *LOW* (12/21/23 11:37 PM) Hct [42.0-52.0 %] 29.5 % *LOW* (12/21/23 11:37 PM) Microcyte 3+ *ABN* (12/21/23 11:37 PM) Hypochromia 2+ *ABN* (12/21/23 11:37 PM) Calcium Level [8.6-10.3 mg/dL] 9.0 mg/dL (12/21/23 11:37 PM) [place] Absolute [0.1-0.6 K/mcL] 1.2 K/mcL *HI* (12/21/23 11:37 PM) MCH [27.0-31.0 pg] 21.4 pg *LOW* (12/21/23 11:37 PM) Magnesium Level [1.9-2.7 mg/dL] 2.3 mg/d L (12/21/23 11:37 PM) Neutro Absolute [1.4-6.5 K/mcL] 7.9 K/mc L *HI* (12/21/23 11:37 PM) Hgb [14.0-18.0 g/dL] 9.0 g/dL *LOW* (12/21/23 11:37 PM) MPV [7.4-10.4 fL] 8.0 fL (12/21/23 11:37 PM) Teardrop Cells 1+ *ABN* (12/21/23 11:37 PM) Polychrom 1+ *ABN* (12/21/23 11:37 PM) Platelets [130-400 K/mcL] 416 K/mcL *HI* (12/21/23 11:37 PM) CO2 [21-31 mmol/L] 27 mmol/L (12/21/23 11:37 PM) Eos Absolute [0.0-0.2 K/mcL] 0.1 K/mcL (12/21/23 11:37 PM) Chloride Level [98-107 mmol/L] 97 mmol/L *LOW* (12/21/23 11:37 PM) RDW-CV [11.5-14.5 %] 21.5 % *HI* (12/21/23 11:37 PM) BUN/Creat Ratio [8.0-20.0] 11.7 (12/21/23 11:37 PM) Marylou Cells 1+ *ABN* (12/21/23 11:37 PM) Ovalocytes 1+ *ABN* (12/21/23 11:37 PM) Slide Review Morph Only (12/21/23 11:37 PM) Plt Large Few *ABN* (12/21/23 11:37 PM) Anisocyte 3+ (12/21/23 11:37 PM) Creatinine Level [0.70-1.30 mg/dL] 4.10 mg/dL *HI* (12/21/23 11:37 PM) Plt Estimation Increased *ABN* (12/21/23 11:37 PM) Anion Gap [3.0-12.0] 10.0 (12/21/23 11:37 PM) Eos, Auto [0.00-3.00 %] 1.10 % (12/21/23 11:37 PM) eGFR CKD-EPI [>=60 mL/min/1.73 m2] 17 mL /min/1.73 m2 *LOW* (12/21/23 11:37 PM) Radiology Reports * Exam Date Time Procedure Performing Provider Status 12/22/23 12:01 AM XR Chest 2 Views [facility] (Verified) Notes: (XR Chest 2 Views) Reason For Exam: Abdominal Pain XR Chest 2 Views PROCEDURE INFORMATION: Exam: XR Chest Exam date and time: 12/22/2023 12:04 AM Age: 48 years old Clinical indication: Pain; Right-sided; Prior surgery; Surgery date: 3-7 days post-operative; Surgery type: Dialysis catheter placed 25; Additional info: Abdominal pain TECHNIQUE: Imaging protocol: Radiologic exam of the chest. Views: 2 views. COMPARISON: CT CHEST WO CONTRAST 2023 2:46 AM FINDINGS: Tubes, catheters and devices: Right-sided Dialysis catheter tips are present in the right atrium. Lungs: Stable small left effusion stable patchy opacity at the left lung base which is likely secondary to atelectasis. Pleural spaces: Unremarkable. No pleural effusion. No pneumothorax. Heart/Mediastinum: There is mild cardiomegaly. Bones/joints: There has been a median sternotomy. IMPRESSION: 1. Mild cardiomegaly. 2. Stable small left effusion. stable patchy opacity at the left lung base which is likely secondary to atelectasis. THIS DOCUMENT HAS BEEN ELECTRONICALLY SIGNED BY CLARENCE WYLIE MD on 12/22/2023 12:22 AM Final Signed by: Clarence DO Brannon Signed (Electronic Signature): 12/22/2023 0:22 am Vital Signs Most recent to oldest [Reference Range]: 1 2 Temperature Oral [35.8-37.3 Deg C] 36.4 Deg C (12/21/23 11:09 PM) Peripheral Pulse Rate [60-100 bpm] 101 b pm *HI* (12/21/23 11:14 PM) 94 bpm (12/21/23 11:09 PM) Respiratory Rate [12-24 br/min] 16 br/mi n (12/21/23 11:14 PM) 18 br/min (12/21/23 11:09 PM) Blood Pressure [90-120/60-80 mmHg] 144/7 8mmHg *HI* (12/21/23 11:14 PM) 161/75mmHg *HI* (12/21/23 11:09 PM) Mean Arterial Pressure, Cuff [65-140 mmHg] 100 mmHg (12/21/23:14 PM) 104 mmHg (12/21/23 11:09 PM) Weight 117 kg (12/21/23 11:09 PM) Weight Dosing 117.000 kg (12/21/23 11:09 PM) Height 177 cm (12/21/23 11:09 PM) Body Mass Index 37.35 kg/m2 (12/21/23 11:09 PM) Social History Social History Type Response Tobacco Never tobacco user T obacco Use:. Sex Sex Representation Male (finding) Hospital Discharge Instructions Patient Education 12/21/2023 23:13:06 Dialysis Vascular Access Malfunction Dialysis Vascular Access Malfunction (YOU DON'T HAVE THIS EXACT PROBLEM. ONLY FOR INFORMATIONAL PURPOSES) Dialysis vascular access is an opening into your blood vessels that can be used for dialysis treatments. Dialysis is a treatment used for kidney failure. A health care provider can make vascular access in many ways, such as by: ??? Joining an artery to a vein in order to make a bigger blood vessel called a fistula. ??? Joining an artery to a vein using a soft tube called a graft. ??? Placing a thin, flexible tube (catheter) in a large vein, usually in your neck, chest, or groin. A vascular access can malfunction. This means that it can become blocked or stop working correctly. What are the causes? Malfunctioning of a vascular access may be caused by: ??? Infection. This is the most common cause of malfunction. ??? A blood clot inside a part of the fistula, graft, or catheter. A blood clot can completely or partially block the flow of blood. ??? A kink in the graft or catheter. ??? A collection of blood (hematoma or bruise) next to the graft or catheter that pushes against it, blocking the flow of blood. What are the signs or symptoms? Symptoms of this condition include: ??? A change in the vibration or pulse (thrill) of your fistula or graft. ??? Feeling no thrill in the fistula or graft. ??? New or unusual swelling of the area around the access. ??? An unsuccessful puncture of your access by the dialysis team. ??? Slow flow of blood through the fistula, graft, or catheter. Dialysis will not work properly if this happens. ??? Bleeding that cannot be easily stopped when the needle is removed after dialysis. ??? Signs of infection, such as: ??? Pain, swelling, redness, red streaks, or numbness. ??? Blood or pus coming from the access. How is this diagnosed? This condition may be diagnosed with: ??? Blood tests or blood cultures. ??? An X-ray that uses dye, or contrast, to show areas that have a blockage. How is this treated? Treatment for this condition depends on the underlying cause of the malfunction. ??? If the vascular access is infected, your health care provider may prescribe antibiotic medicineto control the infection. ??? If a clot is found in the vascular access, you may need surgery to remove the clot. Blood thinners may also be used. ??? If a blockage in the vascular access is caused by something else, such as a kink in a graft, you will likely need surgery to unblock or replace the graft. ??? If there is a malfunction for any reason, your health care provider may remove and replace youraccess. Follow these instructions at home: Medicines ??? Take quoa-err-vdjgizs and prescription medicines only as told by your health care provider. ??? If you were prescribed an antibiotic medicine, use it as told by your health care provider. Do not stop using the antibiotic even if you start to feel better. Activity ??? Try not to bump the area that has the access device. ??? Do not lift anything that is heavier than 10 lb (4.5 kg), or the limit that you are told, untilyour health care provider says that it is safe. Lifting heavy objects can put too much pressure on your access. ??? Do exercises as told by your health care provider. Certain exercises may be limited based on where the access site is located. ??? Return to your normal activities as told by your health care provider. Ask your health care provider what activities are safe for you. Lifestyle ??? Do not wear jewelry or tight clothing around the access. ??? Do not sleep with the access arm placed under your head or body. ??? Avoid pulling or tugging on the access if you have a central line catheter. General instructions ??? Wash your hands with soap and water for at least 20 seconds before and after touching the area around the vascular access. If soap and water are not available, use hand radio communications mechanician. ??? Keep all follow-up visits. This is very important. Any delay in follow-up could cause permanentmalfunction of the vascular access. Contact a health care provider if: ??? Swelling around the vascular access gets worse. ??? You develop new pain. ??? You have pus or other fluid (drainage) at the vascular access site. ??? You have chills or a fever. Get help right away if: ??? You have bleeding at the vascular access that cannot be easily controlled. ??? You have pain, numbness, an unusual pale skin color, or blue fingers or sores at the tips of the fingers of the fistula hand. ??? You develop redness or red streaking on the skin around, above, or below the vascular access. ??? Your access is hot, swollen, red, and very painful. ??? You can suddenly see the cuff of the catheter used in the access. These symptoms may represent a serious problem that is an emergency. Do not wait to see if the symptoms will go away. Get medical help right away. Call your local emergency services (911 in the [place] Do not drive yourself to the hospital. Summary ??? Dialysis vascular access is an opening into your blood vessels that can be used for dialysis treatments. ??? Your vascular access can become blocked or stop working correctly (malfunction) for several reasons. ??? Treatment varies depending on the cause of the malfunction. ??? Keep all follow-up visits. Any delay in follow-up could cause permanent malfunction of the vascular access. This information is not intended to replace advice given to you by your health care provider. Make sure you discuss any questions you have with your health care provider. Document Revised: 09/16/2020 Document Reviewed: 09/16/2020 Elsevier Patient Education ?? 2022 [employer] Follow Up Care 12/21/2023 22:59:52 With:[facility] [place] Address: [address] [place] [phone] [phone] When:1 week Comments:Thank you for allowing us to evaluate you today in the emergency department.?? Your fluid balance, electrolytes, hemodynamics, and temperature were all within normal limits. ??Your dialysis catheter showed no discontinuity??and clearly is functioning properly as??you just had??dialysis.?? The your chest x-ray does not demonstrate any other concerning??issues.?? I recommend reaching back out to nephrology tomorrow??to discuss next Epson management. ??In the meantime I will bridge you with some additional pain control measures but implore you to??try??1000 mg of Tylenol??every 4 hours not to exceed 4000 mg in 24 hours??and if you are allowed now that you are on dialysis use ibuprofen??800 mg every 6 hours with food.?? I also encourage you to place ice over the area which helps reduce any swelling or discomfort.?? If these measures are not working then you can proceed with oxycodone 5 mg??1 tab every 6 hours for more moderate to severe discomfort.?? I anticipate as the catheter seats??into your chest wall this??discomfort she will subside.?? Of course if you have any concerns of new orworsening illness please come back to the emergency department for??evaluation. Discharge instructions * Event Display: Discharge Instructions Physician Emergency department Note * Minesh Edwards, DO: PERFORM Event Display: ED Note Physician Authored Date: [id number] SHOSHANA SALGADO :1975 Age:48 years Sex:Male Visit Date:12/21/2023 Basic Information Time Seen: Minesh Edwards, DO / 12/21/2023 23:20 Chief Complaint my whole body hurts, especially the R side of y chest where the dialysis catheter is: Had Dialysis catheter placed on 12/14 at [facility]. Discharged from [facility] today after dialysis yesterday. History Of Present Illness: This is a 48-year-old male??PMH as documented to the right highlighting end- stage renal disease on dialysis??presents to the emergency department with dialysis catheter concerns. ??He had the catheter placed on 12/11/2023 to the right??subclavian vein.?? He states he had a considerable amount of fluid removed for him??discharge yesterday??after dialysis. ??He states he lost??weight from 294 pounds to 256 pounds.?? The patient reports having catheter discomfort??at the time of discharge and the staff at [facility] recommended ibuprofen??and??discharged home. ??He states he has tried that with no relief.?? He states??that he just feels pain all over his body and just wants to be reassured that his catheter is??okay.?? He denies any fevers or chills.?? The catheter function perfectly fine during dialysis??yesterday.?? He??has no purulent drainage, surrounding erythema??and there catheter itself appears to be appropriately sutured in place. Review of Systems: 12 point review of systems was reviewed and significant for those symptoms reported in the history of present illness Physical Exam Vitals & Measurements T:??36.4?C ??(Oral)?? HR:??101??(Peripheral)?? RR:??16?? BP:??144/78?? SpO2:??96%?? HT:??177??cm?? WT:??117??kg?? BMI:??37.35?? O2 Flow Rate:??1?? O2 Therapy:??Nasal cannula?? GENERAL APPEARANCE: Morbidly obese??somewhat pale appearing male in no acute cardiopulmonary distress. HEENT: NC/AT; EOMI. PERRL, no conjunctival injection; no scleral icterus. TMs not examined. Nares patent. No posterior pharyngeal erythema or tonsillar exudate. NECK: Supple. HEART: RRR; No M/R/G CHEST: CTA B/L with symmetric excursions.?Peritoneal catheter placed in the??right anterior chest wall. ??The catheter appears intact and appropriately sutured to the chest wall. ??There is no surrounding erythema??or purulent drainage.?? Antibiotic??infused Tegaderm dressing is over the catheter site. ABDOMEN: S/NT/ND/no peritoneal signs/bowel sounds present. No CVAT. : Deferred. MUSCULOSKELETAL: Normal muscle strength in all major muscle groups with no signs of weakness or asymmetry. No midline CTLS tenderness or step-offs. ?? EXTREMITIES: No edema. ??No unilateral leg swelling or posterior calf tenderness. NEURO: Cranial nerves grossly intact. ??No acute focal neurologic deficit. Medical Decision Making: Peritoneal dialysis catheter??concern.?Chest x-ray was obtained which revealed mild cardiomegalywith stable small left effusion.?? Atelectasis is likely in a patchy opacity in left lung base.?? The catheter itself is intact with catheter tips in the right atrium.?? Blood counts reveal white blood cell count 10.2, H&H 9 and 29.5 respectively with MCV 70.5 and platelet count 416.?? Chemistries reveal sodium 134, potassium 4.0, chloride 97, CO2 27, BUN 48, creatinine 4.10, glucose 263 mg/dL.?? Discharge instructions specifically discussed as documented below. ??All questions were answered. ??Patient expressed understanding of disposition and was grateful for discharge home. Procedure An opioid medication was prescribed today to treat the patient's acute pain. Non-pharmacologic and non-controlled alternative medication options were discussed today. The use of an opioid was deemed appropriate to provide the patient with adequate pain relief for their acute pain issues. A [place] Boardof Medicine approved risk assessment tool was utilized, see nursing notes. The patient's risk scorewas taken into account when determining an appropriate plan for pain control. The risk of addictionwas reviewed with the patient today. The informed consent and agreement for opioid therapy was signed with the patient, outlining the risks associated with opioid use. The prescription provided repres ents the lowest effective dose of opioid and the quantity was prescribed for the fewest number of days. The [place] Prescription Drug Monitoring Program was queried prior to prescribing an opioid today and the results of the query reviewed. No Qualifying Data Assessment/Plan 1.??Complications, mechanical, catheter, dialysis??T82.49XA Ordered: Percocet 5 mg-325 mg oral tablet, 1 tab, Oral, every 6 hr, PRN as needed for pain, X 5 days, # 10 tab, 0 Refill(s), 12/27/23 0:13:00 EST, Pharmacy: [id number], 177, cm, 12/21/23 23:09:00 EDT, Height, 117, kg, 12/21/23 23:12:00 EDT, Weight Dosing ?? Orders: morphine, 5 mg = 2.5 mL, IV Push, Injection, every 20 min for 3 doses, PRN pain, moderate, First Dose: 12/21/23 23:33:00 EDT, Stop Date: Limited # of times, Physician Stop, Routine Discharge Patient, 12/22/23 0:16:00 EDT, Home Independently Patient Education Dialysis Vascular Access Malfunction Follow Up With When Contact Information [facility] [place] Within [address] [place] [phone] Additional Instructions: Thank you for allowing us to evaluate you today in the emergency department.?? Your fluid balance, electrolytes, hemodynamics, and temperature were all within normal limits. ??Your dialysis catheter showed no discontinuity??and clearly is functioning properly as??you just had??dialysis.?? The your chest x-ray does not demonstrate any other concerning??issues.?? I recommend reaching back out to nephrology tomorrow??to discuss next Epson management. ??In the meantime I will bridge you with some additional pain control measures but implore you to??try??1000 mg of Tylenol??every 4 hours not to exceed 4000 mg in 24 hours??and if you are allowed now that you are on dialysis use ibuprofen??800 mg every 6 hours with food.?? I also encourage you to place ice over the area which helps reduce any swelling or discomfort.?? If these measures are not working then you can proceed with oxycodone 5 mg??1 tab every 6 hours for more moderate to severe discomfort.?? I anticipate as the catheter seats??into your chest wall this??discomfort she will subside.?? Of course if you have any concerns of new or worsening illness please come back to the emergency department for??evaluation. Medication Reconciliation New Prescription oxyCODONE-acetaminophen (Percocet 5 mg-325 mg oral tablet)1 tab Oral (given by mouth) every 6 hoursas needed as needed for pain for 5 Days. Refills: 0. ?? Unchanged amiodarone (amiodarone 200 mg oral tablet)1 tab Oral (given by mouth) 2 times a day. ?? apixaban (Eliquis 2.5 mg oral tablet)1 tab Oral (given by mouth) 2 times a day. ?? aspirin (aspirin 81 mg oral tablet, chewable)1 tab Chewed every evening. ?? atorvastatin (atorvastatin 40 mg oral tablet)1 tab Oral (given by mouth) every evening. ?? carvedilol (carvedilol 6.25 mg oral tablet)1 tab Oral (given by mouth) 2 times a day. ?? cephalexin (cephalexin 500 mg oral capsule)1 Capsules Oral (given by mouth) 4 times a day for 5 Days. Refills: 0. ?? cholecalciferol (Vitamin D3 5000 intl units oral capsule)TAKE 1 CAPSULE BY MOUTH ONCE DAILY. ?? citalopram (citalopram 10 mg oral tablet)1 tab Oral (given by mouth) every evening. ?? clopidogrel (clopidogrel 75 mg oral tablet)1 tab Oral (given by mouth) every day. ?? dapagliflozin (Farxiga 5 mg oral tablet)1 tab Oral (given by mouth) every day. ?? ferrous sulfate (FeroSul 325 mg (65 mg elemental iron) oral tablet)TAKE 1 TABLET BY MOUTH EVERY OTHER DAY. ?? gabapentin (gabapentin 300 mg oral capsule)2 Capsules Oral (given by mouth) every evening. ?? insulin detemir (Levemir FlexTouch 100 units/mL subcutaneous solution)30 Units Subcutaneous (under the skin) every evening. ?? insulin glargine (Lantus Solostar Pen 100 units/mL subcutaneous solution)0.2 Unit/kilogram Subcutaneous (under the skin) every night at bedtime. ?? insulin lispro (Insulin Lispro KwikPen 100 units/mL injectable solution)Subcutaneous (under the skin) 3 times a day before meals. 20-50 units per SLIDING SCALE. ?? losartan (losartan 50 mg oral tablet)TAKE 1 TABLET BY MOUTH TWICE DAILY. ?? oxyCODONE (oxyCODONE 5 mg oral tablet)TAKE 1 TABLET BY MOUTH EVERY 8 HOURS NEEDED FOR PAIN. ?? pantoprazole (pantoprazole 40 mg oral delayed release tablet)TAKE 1 TABLET BY MOUTH ONCE DAILY. ?? sevelamer (sevelamer carbonate 800 mg oral tablet)TAKE 1 TABLET BY MOUTH THREE TIMES DAILY WITH MEALS. ?? temazepam (temazepam 7.5 mg oral capsule)1 Capsules Oral (given by mouth) every night at bedtime asneeded as needed for sleep. Refills: 0. ?? torsemide (torsemide 20 mg oral tablet)1 tab Oral (given by mouth) every day. Problem List/Past Medical History Ongoing Anemia Cholecystitis, chronic Diabetes Heart attack High blood pressure Impairment of balance Sensorineural hearing loss of left ear with normal hearing on right side Sudden sensorineural hearing loss Tinnitus of left ear Historical No qualifying data Procedure/Surgical History ???Stent placement Medication Administration Given morphine, 5 mg, IV Push ondansetron, 4 mg, IV Push Allergies Diphendramine HCL??(Hyperactivity level) melatonin??(Restless legs syndrome) Social History Alcohol Current, Beer, 1-2 times per month Electronic Cigarette/Vaping Electronic Cigarette Use: Never. Home/Environment Lives with Spouse. Living situation: Home/Independent. Substance Use Never Tobacco Never tobacco user Tobacco Use:. Diagnostic Results XR Chest 2 Views 12/22/2023 00:22 EDT XR Chest 2 Views ?? 12/22/23 00:04:55 PROCEDURE INFORMATION: Exam: XR Chest Exam date and time: 12/22/2023 12:04 AM Age: 48 years old Clinical indication: Pain; Right-sided; Prior surgery; Surgery date: 3-7 days post-operative; Surgery type: Dialysis catheter placed 12-14; Additional info: Abdominal pain ?? TECHNIQUE: Imaging protocol: Radiologic exam of the chest. Views: 2 views. ?? COMPARISON: CT CHEST WO CONTRAST 2023 2:46 AM ?? FINDINGS: Tubes, catheters and devices: Right-sided Dialysis catheter tips are present in the right atrium. ?? Lungs: Stable small left effusion stable patchy opacity at the left lung base which is likely secondary to atelectasis. Pleural spaces: Unremarkable. No pleural effusion. No pneumothorax. Heart/Mediastinum: There is mild cardiomegaly. Bones/joints: There has been a median sternotomy. ?? IMPRESSION: 1. Mild cardiomegaly. 2. Stable small left effusion. stable patchy opacity at the left lung base which is likely secondary to atelectasis. ? THIS DOCUMENT HAS BEEN ELECTRONICALLY SIGNED BY CLARENCE WYLIE MD on 12/22/2023 12:22 AM ?? Signed By: Clarence Wylie, DO Lab Results CBC and Differential?? LATEST RESULTS?? HISTORICAL RESULTS?? WBC?? 12/21/23 23:37?? 10.2?? 12/10/23?? 6.6?? RBC?? 12/21/23 23:37?? 4.18 ??Low?? 12/10/23?? 3.77 ??Low?? Hgb?? 12/21/23 23:37?? 9.0 ??Low?? 12/10/23?? 8.2 ??Low?? Hct?? 12/21/23 23:37?? 29.5 ??Low?? 12/10/23?? 27.1 ??Low?? MCV?? 12/21/23 23:37?? 70.5 ??Low?? 12/10/23?? 72.0 ??Low?? MCH?? 12/21/23 23:37?? 21.4 ??Low?? 12/10/23?? 21.7 ??Low?? MCHC?? 12/21/23 23:37?? 30.4 ??Low?? 12/10/23?? 30.2 ??Low?? RDW-CV?? 12/21/23 23:37?? 21.5 ??High?? 12/10/23?? 24.0 ??High?? Platelets?? 12/21/23 23:37?? 416 ??High?? 12/10/23?? 223?? MPV?? 12/21/23 23:37?? 8.0?? 12/10/23?? 8.7?? Neutro Auto?? 12/21/23 23:37?? 77.2 ??High?? 12/10/23?? 67.6?? Lymph Auto?? 12/21/23 23:37?? 8.9 ??Low?? 12/10/23?? 19.6 ??Low?? [place] Auto?? 12/21/23 23:37?? 11.4 ??High?? 12/10/23?? 9.3?? Eos, Auto?? 12/21/23 23:37?? 1.10?? 12/10/23?? 2.00?? Basophil Auto?? 12/21/23 23:37?? 1.4 ??High?? 12/10/23?? 1.5 ??High?? Neutro Absolute?? 12/21/23 23:37?? 7.9 ??High?? 12/10/23?? 4.5?? Lymph Absolute?? 12/21/23 23:37?? 0.9 ??Low?? 12/10/23?? 1.3?? [place] Absolute?? 12/21/23 23:37?? 1.2 ??High?? 12/10/23?? 0.6?? Eos Absolute?? 12/21/23 23:37?? 0.1?? 12/10/23?? 0.1?? Baso Absolute?? 12/21/23 23:37?? 0.10?? 12/10/23?? 0.1?? RBC Morph?? 12/21/23 23:37?? Abnormal Abnormal?? 12/10/23?? Abnormal Abnormal?? Anisocyte?? 12/21/23 23:37?? 3+?? 12/10/23?? 4+?? [place] Cells?? 12/21/23 23:37?? 1+ Abnormal?? 12/10/23?? 1+ Abnormal?? Hypochromia?? 12/21/23 23:37?? 2+ Abnormal?? 12/10/23?? 3+ Abnormal?? Microcyte?? 12/21/23 23:37?? 3+ Abnormal?? 12/10/23?? 3+ Abnormal?? Ovalocytes?? 12/21/23 23:37?? 1+ Abnormal?? 12/10/23?? 1+ Abnormal?? Plt Estimation?? 12/21/23 23:37?? Increased Abnormal?? 12/10/23?? Normal?? Plt Large?? 12/21/23 23:37?? Few Abnormal?? 12/10/23?? Few Abnormal?? Polychrom?? 12/21/23 23:37?? 1+ Abnormal?? 12/01/23?? 1+ Abnormal?? Teardrop Cells?? 12/21/23 23:37?? 1+ Abnormal?? 12/10/23?? 1+ Abnormal?? Slide Review?? 12/21/23 23:37?? Morph Only?? 12/10/23?? Morph Only? Routine Chemistry?? LATEST RESULTS?? HISTORICAL RESULTS?? Sodium Level?? 12/21/23 23:37?? 134 ??Low?? 12/10/23?? 137?? Potassium Level?? 12/21/23 23:37?? 4.0?? 12/10/23?? 7.3 ??Critical?? Chloride Level?? 12/21/23 23:37?? 97 ??Low?? 12/10/23?? 112 ??High?? CO2?? 12/21/23 23:37?? 27?? 12/10/23?? 20 ??Low?? BUN?? 12/21/23 23:37?? 48 ??High?? 12/10/23?? 82 ??High?? Glucose Level?? 12/21/23 23:37?? 263 ??High?? 12/10/23?? 102?? Creatinine Level?? 12/21/23 23:37?? 4.10 ??High?? 12/10/23?? 4.20 ??High?? BUN/Creat Ratio?? 12/21/23 23:37?? 11.7?? 12/10/23?? 19.5?? eGFR CKD-EPI?? 12/21/23 23:37?? 17 ??Low?? 12/10/23?? 17 ??Low?? Calcium Level?? 12/21/23 23:37?? 9.0?? 12/10/23?? 8.8?? Anion Gap?? 12/21/23 23:37?? 10.0?? 12/10/23?? 5.0?? Magnesium Level?? 12/21/23 23:37?? 2.3?? 12/10/23?? 2.3?? Osmolality?? 12/21/23 23:37?? 290?? 12/10/23?? 299 ??High? Electronically Signed on 12/22/2023 02:26 EDT Minesh Edwards DO Emergency department Discharge instructions * Minesh Edwards DO: PERFORM Event Display: ED Discharge Information Authored Date: [id number] SHOSHANA SALGADO :1975 Age:48 years Sex:Male Visit Date:12/21/2023 Discharge Instructions We would like to thank you for allowing us to assist you with your healthcare needs. The following includes patient education materials and information regarding your injury/illness. Diagnosis from Today's Visit Complications, mechanical, catheter, dialysis Discharge Vitals Temperature??(Oral) 97.5 ??F (36.4 ??C) Heart Rate??(Peripheral) 101 Respiratory Rate?? 16 Blood Pressure?? 144/78?? SpO2?? 96% Height?? 69.69 in (177 cm) Weight?? 257.98 lb (117 kg) BMI?? 37.35 Allergies Diphendramine HCL??(Hyperactivity level) melatonin??(Restless legs syndrome) What to Do Next You Need to Schedule the Following Appointments Follow Up with??[facility] [place] When:??Within 1 week Why: Thank you for allowing us to evaluate you today in the emergency department.?? Your fluid balance, electrolytes, hemodynamics, and temperature were all within normal limits. ??Your dialysis catheter showed no discontinuity??and clearly is functioning properly as??you just had??dialysis.?? The your chest x-ray does not demonstrate any other concerning??issues.?? I recommend reaching back out to nephrology tomorrow??to discuss next Epson management. ??In the meantime I will bridge you with some additional pain control measures but implore you to??try??1000 mg of Tylenol??every 4 hours not to exceed 4000 mg in 24 hours??and if you are allowed now that you are on dialysis use ibuprofen??800 mg every 6 hours with food.?? I also encourage you to place ice over the area which helps reduce any swelling or discomfort.?? If these measures are not working then you can proceed with oxycodone 5mg??1 tab every 6 hours for more moderate to severe discomfort.?? I anticipate as the catheter seats??into your chest wall this??discomfort she will subside.?? Of course if you have any concerns of new or worsening illness please come back to the emergency department for??evaluation. Where: [address] [place] [phone] Upcoming Scheduled Appointments Monday 2:00 PM EST ?? Where: [facility] Infusion Care Status: Confirmed You were treated today on an emergency [...] Much When Why Instructions Next Dose New oxyCODONE-acetaminophen (Percocet 5 mg-325 mg oral tablet) 1 tab Oral (given by mouth) Every 6 hours as needed for as needed for pain Complications, mechanical, catheter, dialysis Duration: 5 Days Pickup at [id number] Unchanged amiodarone (amiodarone 200 mg oral tablet) 1 tab Oral (given by mouth) 2 times a day Unchanged apixaban (Eliquis 2.5 mg oral tablet) 1 tab Oral (given by mouth) 2 times a day Unchanged aspirin (aspirin 81 mg oral tablet, chewable) 1 tab Chewed Every evening Unchanged atorvastatin (atorvastatin 40 mg oral tablet) 1 tab Oral (given by mouth) Every evening Unchanged carvedilol (carvedilol 6.25 mg oral tablet) 1 tab Oral (given by mouth) 2 times a day Unchanged cephalexin (cephalexin 500 mg oral capsule) 1 Capsules Oral (given by mouth) 4 times a day Rash Hematoma of abdominal wall Duration: 5 Days Unchanged cholecalciferol (Vitamin D3 5000 intl units oral capsule) TAKE 1 CAPSULE BY MOUTH ONCE DAILY ?? Unchanged citalopram (citalopram 10 mg oral tablet) 1 tab Oral (given by mouth) Every evening Unchanged clopidogrel (clopidogrel 75 mg oral tablet) 1 tab Oral (given by mouth) Every day Unchanged dapagliflozin (Farxiga 5 mg oral tablet) 1 tab Oral (given by mouth) Every day Unchanged ferrous sulfate (FeroSul 325 mg (65 mg elemental iron) oral tablet) TAKE 1 TABLET BY MOUTH EVERY OTHER DAY ?? Unchanged gabapentin (gabapentin 300 mg oral capsule) 2 Capsules Oral (given by mouth) Every evening Unchanged insulin detemir (Levemir FlexTouch 100 units/ mL subcutaneous solution) 30 Units Subcutaneous (under the skin) Every evening Unchanged insulin glargine (Lantus Solostar Pen 100 units/ mL subcutaneous solution) 0.2 Unit/kilogram Subcutaneous (under the skin) Every night at bedtime Unchanged insulin lispro (Insulin Lispro KwikPen 100 units/ mL injectable solution) Subcutaneous (under the skin) 3 times a day before meals 20-50 units per SLIDING SCALE ?? Unchanged losartan (losartan 50 mg oral tablet) TAKE 1 TABLET BY MOUTH TWICE DAILY ?? Unchanged oxyCODONE (oxyCODONE 5 mg oral tablet) TAKE 1 TABLET BY MOUTH EVERY 8 HOURS NEEDED FOR PAIN ?? Unchanged pantoprazole (pantoprazole 40 mg oral delayed release tablet) TAKE 1 TABLET BY MOUTH ONCE DAILY ?? Unchanged sevelamer (sevelamer carbonate 800 mg oral tablet) TAKE 1 TABLET BY MOUTH THREE TIMES DAILY WITH MEALS ?? Unchanged temazepam (temazepam 7.5 mg oral capsule) 1 Capsules Oral (given by mouth) Every night at bedtime as needed for as needed for sleep Unchanged torsemide (torsemide 20 mg oral tablet) 1 tab Oral (given by mouth) Every day Pharmacy Information [id number]: [address], [place] [id number] [phone] Education Materials Dialysis Vascular Access Malfunction (YOU DON'T HAVE THIS EXACT PROBLEM. ONLY FOR INFORMATIONAL PURPOSES) Dialysis vascular access is an opening into your blood vessels that can be used for dialysis treatments. Dialysis is a treatment used for kidney failure. A health care provider can make vascular access in many ways, such as by: ? Joining an artery to a vein in order to make a bigger blood vessel called a fistula. ? Joining an artery to a vein using a soft tube called a graft. ? Placing a thin, flexible tube (catheter) in a large vein, usually in your neck, chest, or groin. A vascular access can malfunction. This means that it can become blocked or stop working correctly. What are the causes? Malfunctioning of a vascular access may be caused by: ? Infection. This is the most common cause of malfunction. ? A blood clot inside a part of the fistula, graft, or catheter. A blood clot can completely or partially block the flow of blood. ? A kink in the graft or catheter. ? A collection of blood (hematoma or bruise) next to the graft or catheter that pushes against it, blocking the flow of blood. What are the signs or symptoms? Symptoms of this condition include: ? A change in the vibration or pulse (thrill) of your fistula or graft. ? Feeling no thrill in the fistula or graft. ? New or unusual swelling of the area around the access. ? An unsuccessful puncture of your access by the dialysis team. ? Slow flow of blood through the fistula, graft, or catheter. Dialysis will not work properly if thishappens. ? Bleeding that cannot be easily stopped when the needle is removed after dialysis. ? Signs of infection, such as: ? Pain, swelling, redness, red streaks, or numbness. ? Blood or pus coming from the access. How is this diagnosed? This condition may be diagnosed with: ? Blood tests or blood cultures. ? An X-ray that uses dye, or contrast, to show areas that have a blockage. How is this treated? Treatment for this condition depends on the underlying cause of the malfunction. ? If the vascular access is infected, your health care provider may prescribe antibiotic medicine to control the infection. ? If a clot is found in the vascular access, you may need surgery to remove the clot. Blood thinners may also be used. ? If a blockage in the vascular access is caused by something else, such as a kink in a graft, you will likely need surgery to unblock or replace the graft. ? If there is a malfunction for any reason, your health care provider may remove and replace your access. Follow these instructions at home: Medicines ? Take [id number] and prescription medicines only as told by your health care provider. ? If you were prescribed an antibiotic medicine, use it as told by your health care provider. Do not stop using the antibiotic even if you start to feel better. Activity ? Try not to bump the area that has the access device. ? Do not lift anything that is heavier than 10 lb (4.5 kg), or the limit that you are told, until your health care provider says that it is safe. Lifting heavy objects can put too much pressure on youraccess. ? Do exercises as told by your health care provider. Certain exercises may be limited based on where the access site is located. ? Return to your normal activities as told by your health care provider. Ask your health care provider what activities are safe for you. Lifestyle ? Do not wear jewelry or tight clothing around the access. ? Do not sleep with the access arm placed under your head or body. ? Avoid pulling or tugging on the access if you have a central line catheter. General instructions ? Wash your hands with soap and water for at least 20 seconds before and after touching the area around the vascular access. If soap and water are not available, use hand radio communications mechanician. ? Keep all follow-up visits. This is very important. Any delay in follow-up could cause permanent malfunction of the vascular access. Contact a health care provider if: ? Swelling around the vascular access gets worse. ? You develop new pain. ? You have pus or other fluid (drainage) at the vascular access site. ? You have chills or a fever. Get help right away if: ? You have bleeding at the vascular access that cannot be easily controlled. ? You have pain, numbness, an unusual pale skin color, or blue fingers or sores at the tips of the fingers of the fistula hand. ? You develop redness or red streaking on the skin around, above, or below the vascular access. ? Your access is hot, swollen, red, and very painful. ? You can suddenly see the cuff of the catheter used in the access. These symptoms may represent a serious problem that is an emergency. Do not wait to see if the symptoms will go away. Get medical help right away. Call your local emergency services (911 in the [place] Do not drive yourself to the hospital. Summary ? Dialysis vascular access is an opening into your blood vessels that can be used for dialysis treatments. ? Your vascular access can become blocked or stop working correctly (malfunction) for several reasons. ? Treatment varies depending on the cause of the malfunction. ? Keep all follow-up visits. Any delay in follow-up could cause permanent malfunction of the vascularaccess. This information is not intended to replace advice given to you by your health care provider. Make sure you discuss any questions you have with your health care provider. Document Revised: 09/16/2020 Document Reviewed: 09/16/2020 [employer] Patient Education ?? 2022 [employer] Tests Performed Medications and Immunizations Administered Given morphine, 5 mg, IV Push ondansetron, 4 mg, IV Push Lab Test Name Test Result Date/Time WBC 10.2 K/mcL 12/21/2023 23:37 EDT RBC 4.18 Million/mcL 12/21/2023 23:37 EDT Hgb 9.0 g/dL 12/21/2023 23:37 EDT Hct 29.5 % 12/21/2023 23:37 EDT MCV 70.5 fL 12/21/2023 23:37 EDT MCH 21.4 pg 12/21/2023 23:37 EDT MCHC 30.4 g/dL 12/21/2023 23:37 EDT RDW-CV 21.5 % 12/21/2023 23:37 EDT Platelets 416 K/mcL 12/21/2023 23:37 EDT MPV 8.0 fL 12/21/2023 23:37 EDT Neutro Auto 77.2 % 12/21/2023 23:37 EDT Lymph Auto 8.9 % 12/21/2023 23:37 EDT [place] Auto 11.4 % 12/21/2023 23:37 EDT Eos, Auto 1.10 % 12/21/2023 23:37 EDT Basophil Auto 1.4 % 12/21/2023 23:37 EDT Neutro Absolute 7.9 K/mcL 12/21/2023 23:37 EDT Lymph Absolute 0.9 K/mcL 12/21/2023 23:37 EDT [place] Absolute 1.2 K/mcL 12/21/2023 23:37 EDT Eos Absolute 0.1 K/mcL 12/21/2023 23:37 EDT Baso Absolute 0.10 K/mcL 12/21/2023 23:37 EDT RBC Morph Abnormal 12/21/2023 23:37 EDT Anisocyte 3+ 12/21/2023 23:37 EDT [place] Cells 1+ 12/21/2023 23:37 EDT Hypochromia 2+ 12/21/2023 23:37 EDT Microcyte 3+ 12/21/2023 23:37 EDT Ovalocytes 1+ 12/21/2023 23:37 EDT Plt Estimation Increased 12/21/2023 23:37 EDT Plt Large Few 12/21/2023 23:37 EDT Polychrom 1+ 12/21/2023 23:37 EDT Teardrop Cells 1+ 12/21/2023 23:37 EDT Slide Review Morph Only 12/21/2023 23:37 EDT Sodium Level 134 mmol/L 12/21/2023 23:37 EDT Potassium Level 4.0 mmol/L 12/21/2023 23:37 EDT Chloride Level 97 mmol/L 12/21/2023 23:37 EDT CO2 27 mmol/L 12/21/2023 23:37 EDT BUN 48 mg/dL 12/21/2023 23:37 EDT Glucose Level 263 mg/dL 12/21/2023 23:37 EDT Creatinine Level 4.10 mg/dL 12/21/2023 23:37 EDT BUN/Creat Ratio 11.7 12/21/2023 23:37 EDT eGFR CKD-EPI 17 mL/min/1.73 m2 12/21/2023 23:37 EDT Calcium Level 9.0 mg/dL 12/21/2023 23:37 EDT Anion Gap 10.0 12/21/2023 23:37 EDT Magnesium Level 2.3 mg/dL 12/21/2023 23:37 EDT Osmolality 290 mOsm/kg 12/21/2023 23:37 EDT Patient/Claims Adjuster Supervisor Signature Patient Name:SHOSHANA SALGADO I have received this information and my questions have been answered. Patient/Claims Adjuster Supervisor Name: Patient/Claims Adjuster Supervisor Signature: Relationship to Patient: Witness Name/Signature: Date: Electronically Signed on: 12/22/2023 00:19 EDTSigned by:CHANDRAKANT Patient Care team information Care Team Related Persons Name: GRETTA SALGADO Name: GRETTA SALGADO Name: AARTI SALGADO Name: AARTI SALGADO Insurance Providers Guarantor name: SHOSHANA SALGADO Health Plan Information #: 1 Payer: JO ANN HOLBROOK Member Number: [id number] Policy Number: NA Health Plan Information #: 2 Payer: JO ANN HOLBROOK Member Number: [id number] Policy Number: NA
--- OUTSIDE RECORDS SUMMARY | 2024-01-04 13:05 | XMS_ITS | Continuity of Care Document ---
Author Organization [facility] Address [address] [place] [address] Care Team Providers Care Boarding Mother Name Role Phone MARIBETH BARKER MD Primary Care Physician [phone] Encounter LTTL_[facility] FIN NBR [id number] Date(s): 03/08/23 - 03/08/[address] [id number] Encounter Diagnosis Pneumonia due to COVID-19 virus(Discharge Diagnosis) - 03/08/23 Anemia(Discharge Diagnosis) - 03/08/23 CRI (chronic renal insufficiency)(Discharge Diagnosis) - 03/08/23 Dehydration(Discharge Diagnosis) - 03/08/23 COVID-19(Final) - Pneumonia due to coronavirus disease 2019(Final) - Partially vaccinated for COVID-19(Final) - Personal history of nicotine dependence(Final) - Discharge Disposition: Home or Self Care Attending Physician: Federico Cervantes MD Admitting Physician: Federico Cervantes MD Allergies, Adverse Reactions, Alerts Substance Reaction Severity Status melatonin Restless legs syndrome Unknown Activ e Diphendramine HCL Hyperactivity level Unknown Act nomi Functional Status 03/08/23 Family Member Travel History No recent t ravel Recent Travel History No recent travel Other exposure to Infectious Disease Non e Medications amoxicillin-clavulanate 875 mg-125 mg oral tablet 1 tab, Oral, every 12 hr, # 20 tab, 0 Refill(s), Pharmacy: 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, 177.8, cm, 03/08/23 8:15:00 EST, Height, 117.93, kg, 03/08/23 8:24:00 EST, WeightDosing Start Date: 03/08/23 Stop Date: 03/15/23 Status: Ordered Farxiga 5 mg oral tablet [...] Start Date: 03/11/22 Status: Ordered Mental Status 03/08/23 Eye Opening Response [place] Spontaneous ly Best Verbal Response [place] Oriented Best Motor Response [place] Obeys comman [...] placement Completed Results Laboratory List Name Date Troponin-I High Sensitivity (High Sensit ivityTroponin-I) 03/08/23 PT/ INR 03/08/23 PTT 03/08/23 .Morphology (LTTL) 03/08/23 BNP 03/08/23 CBC w/ Diff 03/08/23 Comprehensive Metabolic Panel (CMP) 03/08 Lipase Level 03/08/23 Magnesium Level 03/08/23 Troponin-I High Sensitivity (High Sensit ivityTroponin-I) 03/08/23 Automated Diff 03/08/23 Most recent to oldest [Reference Range]: 1 2 WBC [4.8-10.8 K/mcL] 10.3 K/mcL (03/08/23 9:15 AM) RBC [4.70-6.10 Million/mcL] 5.55 Million /mcL (03/08/23 9:15 AM) Neutro Auto [42.2-75.2 %] 78.4 % *HI* (03/08/23 9:15 AM) Lymph Auto [20.5-51.1 %] 11.1 % *LOW* (03/08/23 9:15 AM) [place] Auto [1.7-9.3 %] 8.9 % (03/08/23 9:15 AM) Basophil Auto [0.0-0.8 %] 0.4 % (03/08/23 9:15 AM) Prothrombin Time [9.1-10.6 seconds] 9.1 seconds (03/08/23 9:30 AM) INR [0.9-1.1] 0.9 1 (03/08/23 9:30 AM) BUN [7-25 mg/dL] 39 mg/dL *HI* (03/08/23 9:15 AM) Glucose Level [70-109 mg/dL] 188 mg/dL *HI* (03/08/23 9:15 AM) Potassium Level [3.5-5.1 mmol/L] 4.7 mmo l/L (03/08/23 9:15 AM) Baso Absolute [0.0-0.2 K/mcL] 0.0 K/mcL (03/08/23 9:15 AM) MCV [80.0-94.0 fL] 67.4 fL *LOW* (03/08/23 9:15 AM) RBC Morph [Normal] Abnormal *ABN* (03/08/23 9:15 AM) AST [13-39 IntlUnit/L] 17 IntlUnit/L (03/08/23 9:15 AM) ALT [7-52 IntlUnit/L] 19 IntlUnit/L (03/08/23 9:15 AM) MCHC [32.0-37.0 g/dL] 30.3 g/dL *LOW* (03/08/23 9:15 AM) Osmolality [275-295 mOsm/kg] 294 mOsm/kg (03/08/23 9:15 AM) Sodium Level [136-145 mmol/L] 140 mmol/L (03/08/23 9:15 AM) Lymph Absolute [1.2-3.4 K/mcL] 1.1 K/mcL *LOW* (03/08/23 9:15 AM) Hct [42.0-52.0 %] 37.4 % *LOW* (03/08/23 9:15 AM) Microcyte 3+ *ABN* (03/08/23 9:15 AM) Lipase Level [11-82 unit/L] 20 unit/L 2 (03/08/23 9:15 AM) Hypochromia 1+ *ABN* (03/08/23 9:15 AM) Partial Thromboplastin Time [21.3-28.4 seconds] 27.9 seconds (03/08/23 9:30 AM) Calcium Level [8.6-10.3 mg/dL] 8.9 mg/dL (03/08/23 9:15 AM) [place] Absolute [0.1-0.6 K/mcL] 0.9 K/mcL *HI* (03/08/23 9:15 AM) Albumin Level [3.5-5.7 g/dL] 3.6 g/dL (03/08/23 9:15 AM) Protein Total [6.4-8.9 g/dL] 7.6 g/dL (03/08/23 9:15 AM) MCH [27.0-31.0 pg] 20.5 pg *LOW* (03/08/23 9:15 AM) Magnesium Level [1.9-2.7 mg/dL] 2.3 mg/d L (03/08/23 9:15 AM) Neutro Absolute [1.4-6.5 K/mcL] 8.0 K/mc L *HI* (03/08/23 9:15 AM) Bilirubin Total [0.3-1.0 mg/dL] 0.4 mg/d L (03/08/23 9:15 AM) Hgb [14.0-18.0 g/dL] 11.4 g/dL *LOW* (03/08/23 9:15 AM) Alk Phos [34-104 IntlUnit/L] 70 IntlUnit /L (03/08/23 9:15 AM) MPV [7.4-10.4 fL] 8.2 fL (03/08/23 9:15 AM) Polychrom 1+ *ABN* (03/08/23 9:15 AM) Platelets [130-400 K/mcL] 326 K/mcL (03/08/23 9:15 AM) CO2 [21-31 mmol/L] 23 mmol/L (03/08/23 9:15 AM) Eos Absolute [0.0-0.2 K/mcL] 0.1 K/mcL (03/08/23 9:15 AM) BNP [<=100 pg/mL] 35 pg/mL (03/08/23 9:15 AM) Chloride Level [98-107 mmol/L] 108 mmol/ L *HI* (03/08/23 9:15 AM) RDW-CV [11.5-14.5 %] 19.0 % *HI* (03/08/23 9:15 AM) A/G Ratio [1.0-2.5 g/dL] 0.9 g/dL *LOW* (03/08/23 9:15 AM) BUN/Creat Ratio [8.0-20.0] 17.7 (03/08/23 9:15 AM) Globulin [2.3-3.5 g/dL] 4.0 g/dL *HI* (03/08/23 9:15 AM) Ovalocytes 1+ *ABN* (03/08/23 9:15 AM) Stomatocyte 1+ *ABN* (03/08/23 9:15 AM) Slide Review Morph Only (03/08/23 9:15 AM) Plt Large Moderate *ABN* (03/08/23 9:15 AM) Anisocyte 2+ (03/08/23 9:15 AM) Creatinine Level [0.70-1.30 mg/dL] 2.20 mg/dL *HI* (03/08/23 9:15 AM) Plt Estimation Normal (03/08/23 9:15 AM) Troponin-I HS [<=20 ng/L] 51 ng/L 3, 4 *CRIT* (03/08/23 10:20 AM) 60 ng/L 5, 6 *CRIT* (03/08/23 9:15 AM) Anion Gap [3.0-12.0] 9.0 (03/08/23 9:15 AM) Eos, Auto [0.00-3.00 %] 1.20 % (03/08/23 9:15 AM) eGFR CKD-EPI [>=60 mL/min/1.73 m2] 37 mL /min/1.73 m2 *LOW* (03/08/23 9:15 AM) 1Interpretive Data: THERAPEUTIC INR RANGES FOR WARFARIN Uncomplicated venous thromboembolic disease 2-3 Lupus Anticoagulant and recurrent thrombosis 3-3.5 Mechanical prosthetic valve or recurrent thrombosis 2.5-3.5 2Interpretive Data: J-bwliur-i-benzoquinone imine (meabolite of Acetaminophen) will generate erroneously [...] heart disease from those who do not. 4Result Comment: Critical Result I_[id number] Called to and read back by: MENA HERR at: 03/08/2023 11:09:26 by:SOBEIDA 5Result Comment: Critical Result I_TnIHS:[id number] Called to and read back by: MENA HERR at: 03/08/2023 10:06:18 by:SOBEIDA Results verified by repeat analysis. 6Interpretive Data: The [facility] ACCESS high-sensitivity Troponin I [...] Exam Date Time Procedure Performing Provider Status 03/08/23 10:[address] Angio Chest DomainUser, Generated; Auth (Verified) Notes: (CT Angio Chest) Reason For Exam: chest pain CT Angio Chest PROCEDURE INFORMATION: Exam: CTA Chest With Contrast Exam date and time: 03/08/2023 10:09 AM Age: 47 years old Clinical indication: Pain; Chest pressure; Additional info: Chest pain TECHNIQUE: Imaging protocol: Computed tomographic angiography of the chest with contrast. Exam focused on the arteries. 3D rendering (Not supervised by radiologist): MIP and/or 3D reconstructed images were created by the technologist. Radiation optimization: All CT scans at this facility use at least one of these dose optimization techniques: automated exposure control; mA and/or kV adjustment per patient size (includes targeted exams where dose is matched to clinical indication); or iterative reconstruction. Contrast material: ISOVUE 370; Contrast volume: 100 ml; Contrast route: INTRAVENOUS (IV); COMPARISON: CR XR CHEST, 2 VIEWS 03/08/2023 8:31 AM FINDINGS: Limitations: Some images are degraded by motion. Pulmonary arteries: No central pulmonary embolism. Peripheral pulmonary arterial branches are incompletely opacified with contrast limiting detection of possible peripheral branch pulmonary embolism. Follow-up as indicated. Aorta: Unremarkable. No aortic aneurysm. No aortic dissection. Lungs: Multifocal nodular regions of ground-glass opacity throughout both lungs having peripheral subpleural distribution. Pleural spaces: Unremarkable. No pneumothorax. No pleural effusion. Heart: Unremarkable. No cardiomegaly. No pericardial effusion. Lymph nodes: Unremarkable. No enlarged lymph nodes. Liver: Possible hepatic steatosis. Gallbladder and bile ducts: Multiple 2 x 2 mm gallstones in the gallbladder. Spleen: The spleen is mildly enlarged. Kidneys and ureters: Bilateral perirenal edema. No hydronephrosis. Bones/joints: Degenerative changes axial spine. Soft tissues: Unremarkable. IMPRESSION: 1. No central pulmonary embolism. 2. Peripheral pulmonary arterial branches are incompletely opacified with contrast limiting detection of possible peripheral branch pulmonary embolism. Follow-up as indicated. 3. Likely bilateral viral pneumonia.Follow up to clearing advised to exclude other process. 4. Cholelithiasis. 5. Additional findings/limitations as noted. THIS DOCUMENT HAS BEEN ELECTRONICALLY SIGNED BY STEPHEN BARBOUR MD on 03/08/2023 10:50 AM Final Signed by: Stephen Barbour MD Signed (Electronic Signature): 03/08/2023 10:50 am * Exam Date Time Procedure Performing Provider Status 03/08/23 8:30 AM XR Chest 2 Views Mary Portillo (Verified) Notes: (XR Chest 2 Views) Reason For Exam: sob XR Chest 2 Views PROCEDURE INFORMATION: Exam: XR Chest Exam date and time: 03/08/2023 8:31 AM Age: 47 years old Clinical indication: Shortness of breath; Additional info: SOB TECHNIQUE: Imaging protocol: Radiologic exam of the chest. Views: 2 views. COMPARISON: CR XR CHEST, 2 VIEWS 01/05/2022 3:14 PM FINDINGS: Lungs: Multifocal patchy nodular airspace opacities in the right mid and lower lung zone regions. The lungs are otherwise clear. Pleural spaces: Unremarkable. No pleural effusion. No pneumothorax. Heart/Mediastinum: Cardiac mediastinal silhouette is within normal limits for age. Bones/joints: Mild axial spine dextroscoliosis, unchanged IMPRESSION: 1. Interval multifocal possible pneumonia on the right.Follow up to clearing advised to exclude other process. 2. No other active disease. THIS DOCUMENT HAS BEEN ELECTRONICALLY SIGNED BY STEPHEN BARBOUR MD on 03/08/2023 09:00 AM Final Signed by: Stephen Barbour MD Signed (Electronic Signature): 03/08/2023 9:00 am Vital Signs Most recent to oldest [Reference Range]: 1 2 3 Temperature Temporal Artery [36-38 Deg C] 36 Deg C (03/08/23 8:05 AM) Peripheral Pulse Rate [60-100 bpm] 95 bpm (03/08/23 10:54 AM) 84 bpm (03/08/23 10:45 AM) 90 bpm (03/08/23 10:30 AM) Heart Rate Monitored [60-100 bpm] 94 bpm (03/08/23 10:54 AM) 85 bpm (03/08/23 10:45 AM) 90 bpm (03/08/23 10:30 AM) Respiratory Rate [12-24 br/min] 18 br/min (03/08/23 10:54 AM) 24 br/min (03/08/23 10:45 AM) 21 br/min (03/08/23 10:30 AM) Blood Pressure [90-140/60-90 mmHg] 133/70mmHg (03/08/23 10:54 AM) 154/79mmHg *HI* (03/08/23 10:45 AM) 168/88mmHg *HI* (03/08/23 10:15 AM) Mean Arterial Pressure, Cuff [70-110 mmHg] 91 mmHg (03/08/23 10:54 AM) 104 mmHg (03/08/23 10:45 AM) 115 mmHg *HI* (03/08/23 10:15 AM) Mean Arterial Pressure Cuff 112 mmHg (03/08/23 10:15 AM) 112 mmHg (03/08/23 10:00 AM) 108 mmHg (03/08/23 9:45 AM) Weight 117.93 kg (03/08/23 8:05 AM) Weight Dosing 117.930 kg (03/08/23 8:05 AM) Height 177.80 cm (03/08/23 8:05 AM) Body Mass Index 37.3 kg/m2 (03/08/23 8:05 AM) Social History Social History Type Response Tobacco Former tobacco user Tobacco Use:. 10-15 cigarettes a day per day. 7 year(s). Sex Hospital Discharge Instructions Patient Education 03/08/2023 10:36:06 Dehydration, Adult Dehydration, Adult Dehydration is a condition in which there is not enough water or other fluids in the body. This happens when a person loses more fluids than he or she takes in. Important organs, such as the kidneys,brain, and heart, cannot function without a proper amount of fluids. Any loss of fluids from the body can lead to dehydration. Dehydration can be mild, moderate, or severe. It should be treated right away to prevent it from becoming severe. What are the causes? Dehydration may be caused by: ??? Conditions that cause loss of water or other fluids, such as diarrhea, vomiting, or sweating orurinating a lot. ??? Not drinking enough fluids, especially when you are ill or doing activities that require a lot of energy. ??? Other illnesses and conditions, such as fever or infection. ??? Certain medicines, such as medicines that remove excess fluid from the body (diuretics). ??? Lack of safe drinking water. ??? Not being able to get enough water and food. What increases the risk? The following factors may make you more likely to develop this condition: ??? Having a long-term (chronic) illness that has not been treated properly, such as diabetes, heart disease, or kidney disease. ??? Being 65 years of age or older. ??? Having a disability. ??? Living in a place that is high in altitude, where thinner, platen drier operator air causes more fluid loss. ??? Doing exercises that put stress on your body for a long time (endurance sports). What are the signs or symptoms? Symptoms of dehydration depend on how severe it is. Mild or moderate dehydration ??? Thirst. ??? Dry lips or dry mouth. ??? Dizziness or light-headedness, especially when standing up from a seated position. ??? Muscle cramps. ??? Dark urine. Urine may be the color of tea. ??? Less urine or tears produced than usual. ??? Headache. Severe dehydration ??? Changes in skin. Your skin may be cold and clammy, blotchy, or pale. Your skin also may not return to normal after being lightly pinched and released. ??? Little or no tears, urine, or sweat. ??? Changes in vital signs, such as rapid breathing and low blood pressure. Your pulse may be weak or may be faster than 100 beats a minute when you are sitting still. ??? Other changes, such as: ??? Feeling very thirsty. ??? Sunken eyes. ??? Cold hands and feet. ??? Confusion. ??? Being very tired (lethargic) or having trouble waking from sleep. ??? Short-term weight loss. ??? Loss of consciousness. How is this diagnosed? This condition is diagnosed based on your symptoms and a physical exam. You may have blood and urine tests to help confirm the diagnosis. How is this treated? Treatment for this condition depends on how severe it is. Treatment should be started right away. Do not wait until dehydration becomes severe. Severe dehydration is an emergency and needs to be treated in a hospital. ??? Mild or moderate dehydration can be treated at home. You may be asked to: ??? Drink more fluids. ??? Drink an oral rehydration solution (ORS). This drink helps restore proper amounts of fluids andsalts and minerals in the blood (electrolytes). ??? Severe dehydration can be treated: ??? With IV fluids. ??? By correcting abnormal levels of electrolytes. This is often done by giving electrolytes through a tube that is passed through your nose and into your stomach (nasogastric tube, or NG tube). ??? By treating the underlying cause of dehydration. Follow these instructions at home: Oral rehydration solution If told by your health care provider, drink an ORS: ??? Make an ORS by following instructions on the package. ??? Start by drinking small amounts, about ?? cup (120 mL) every 5???10 minutes. ??? Slowly increase how much you drink until you have taken the amount recommended by your health care provider. Eating and drinking ??? Drink enough clear fluid to keep your urine pale yellow. If you were told to drink an ORS, finish the ORS first and then start slowly drinking other clear fluids. Drink fluids such as: ??? Water. Do not drink only water. Doing that can lead to hyponatremia, which is having too littlesalt (sodium) in the body. ??? Water from ice chips you suck on. ??? Fruit juice that you have added water to (diluted fruit juice). ??? Low-calorie sports drinks. ??? Eat foods that contain a healthy balance of electrolytes, such as bananas, oranges, potatoes, tomatoes, and spinach. ??? Do not drink alcohol. ??? Avoid the following: ??? Drinks that contain a lot of sugar. These include high-calorie sports drinks, fruit juice that is not diluted, and soda. ??? Caffeine. ??? Foods that are greasy or contain a lot of fat or sugar. General instructions ??? Take llhk-ghx-jwlgpqk and prescription medicines only as told by your health care provider. ??? Do not take sodium tablets. Doing that can lead to having too much sodium in the body (hypernatremia). ??? Return to your normal activities as told by your health care provider. Ask your health care provider what activities are safe for you. ??? Keep all follow-up visits as told by your health care provider. This is important. Contact a health care provider if: ??? You have muscle cramps, pain, or discomfort, such as: ??? Pain in your abdomen and the pain gets worse or stays in one area (localizes). ??? Stiff neck. ??? You have a rash. ??? You are more irritable than usual. ??? You are sleepier or have a harder time waking than usual. ??? You feel weak or dizzy. ??? You feel very thirsty. Get help right away if you have: ??? Any symptoms of severe dehydration. ??? Symptoms of vomiting, such as: ??? You cannot eat or drink without vomiting. ??? Vomiting gets worse or does not go away. ??? Vomit includes blood or green matter (bile). ??? Symptoms that get worse with treatment. ??? A fever. ??? A severe headache. ??? Problems with urination or bowel movements, such as: ??? Diarrhea that gets worse or does not go away. ??? Blood in your stool (feces). This may cause stool to look black and tarry. ??? Not urinating, or urinating only a small amount of very dark urine, within 6???8 hours. ??? Trouble breathing. These symptoms may represent a serious problem that is an emergency. Do not wait to see if the symptoms will go away. Get medical help right away. Call your local emergency services (911 in the [place] Do not drive yourself to the hospital. Summary ??? Dehydration is a condition in which there is not enough water or other fluids in the body. Thishappens when a person loses more fluids than he or she takes in. ??? Treatment for this condition depends on how severe it is. Treatment should be started right away. Do not wait until dehydration becomes severe. ??? Drink enough clear fluid to keep your urine pale yellow. If you were told to drink an oral rehydration solution (ORS), finish the ORS first and then start slowly drinking other clear fluids. ??? Take ukev-oxh-muncwgj and prescription medicines only as told by your health care provider. ??? Get help right away if you have any symptoms of severe dehydration. This information is not intended to replace advice given to you by your health care provider. Make sure you discuss any questions you have with your health care provider. Document Revised: 09/19/2019 Document Reviewed: 09/19/2019 [employer] Patient Education ?? 2022 [employer]. 03/08/2023 10:36:03 Chronic Kidney Disease, Adult Chronic Kidney Disease, Adult Chronic kidney disease (CKD) occurs when the kidneys are slowly and permanently damaged over a longperiod of time. The kidneys are a pair of organs that do many important jobs in the body, including: ??? Removing waste and extra fluid from the blood to make urine. ??? Making hormones that maintain the amount of fluid in tissues and blood vessels. ??? Maintaining the right amount of fluids and chemicals in the body. A small amount of kidney damage may not cause problems, but a large amount of damage may make it hard or impossible for the kidneys to work right. Steps must be taken to slow kidney damage or to stopit from getting worse. If steps are not taken, the kidneys may stop working permanently (end-stage renal disease, or ESRD). Most of the time, CKD does not go away, but it can often be controlled. People who have CKD are usually able to live full lives. What are the causes? The most common causes of this condition are diabetes and high blood pressure (hypertension). Other causes include: ??? Cardiovascular diseases. These affect the heart and blood vessels. ??? Kidney diseases. These include: ??? Glomerulonephritis, or inflammation of the tiny filters in the kidneys. ??? Interstitial nephritis. This is swelling of the small tubes of the kidneys and of the surrounding structures. ??? Polycystic kidney disease, in which clusters of fluid-filled sacs form within the kidneys. ??? Renal vascular disease. This includes disorders that affect the arteries and veins of the kidneys. ??? Diseases that affect the body's defense system (immune system). ??? A problem with urine flow. This may be caused by: ??? Kidney stones. ??? Cancer. ??? An enlarged prostate, in males. ??? A kidney infection or urinary tract infection (UTI) that keeps coming back. ??? Vasculitis. This is swelling or inflammation of the blood vessels. What increases the risk? Your chances of having kidney disease increase with age. The following factors may make you more likely to develop this condition: ??? A family history of kidney disease or kidney failure. Kidney failure means the kidneys can no longer work right. ??? Certain genetic diseases. ??? Taking medicines often that are damaging to the kidneys. ??? Being around or being in contact with toxic substances. ??? Obesity. ??? A history of tobacco use. What are the signs or symptoms? Symptoms of this condition include: ??? Feeling very tired (lethargic) and having less energy. ??? Swelling, or edema, of the face, legs, ankles, or feet. ??? Nausea or vomiting, or loss of appetite. ??? Confusion or trouble concentrating. ??? Muscle twitches and cramps, especially in the legs. ??? Dry, itchy skin. ??? A metallic taste in the mouth. ??? Producing less urine, or producing more urine (especially at night). ??? Shortness of breath. ??? Trouble sleeping. CKD may also result in not having enough red blood cells or hemoglobin in the blood (anemia) or having weak bones (bone disease). Symptoms develop slowly and may not be obvious until the kidney damage becomes severe. It is possible to have kidney disease for years without having symptoms. How is this diagnosed? This condition may be diagnosed based on: ??? Blood tests. ??? Urine tests. ??? Imaging tests, such as an ultrasound or a CT scan. ??? A kidney biopsy. This involves removing a sample of kidney tissue to be looked at under a microscope. Results from these tests will help to determine how serious the CKD is. How is this treated? There is no cure for most cases of this condition, but treatment usually relieves symptoms and prevents or slows the worsening of the disease. Treatment may include: ??? Diet changes, which may require you to avoid alcohol and foods that are high in salt, potassium, phosphorous, and protein. ??? Medicines. These may: ??? Lower blood pressure. ??? Control blood sugar (glucose). ??? Relieve anemia. ??? Relieve swelling. ??? Protect your bones. ??? Improve the balance of salts and minerals in your blood (electrolytes). ??? Dialysis, which is a type of treatment that removes toxic waste from the body. It may be neededif you have kidney failure. ??? Managing any other conditions that are causing your CKD or making it worse. Follow these instructions at home: Medicines ??? Take djab-ozp-rnrwpgs and prescription medicines only as told by your health care provider. Theamount of some medicines that you take may need to be changed. ??? Do not take any new medicines unless approved by your health care provider. Many medicines can make kidney damage worse. ??? Do not take any vitamin and mineral supplements unless approved by your health care provider. Many nutritional supplements can make kidney damage worse. Lifestyle ??? Do not use any products that contain nicotine or tobacco, such as cigarettes, e-cigarettes, andchewing tobacco. If you need help quitting, ask your health care provider. ??? If you drink alcohol: ??? Limit how much you use to: ??? 0???1 drink a day for women who are not . ??? 0???2 drinks a day for men. ??? Know how much alcohol is in your drink. In the [place] one drink equals one 12 oz bottle of beer (355 mL), one 5 oz glass of wine (148 mL), or one 1?? oz glass of hard liquor (44 mL). ??? Maintain a healthy weight. If you need help, ask your health care provider. General instructions ??? Follow instructions from your health care provider about eating or drinking restrictions, including any prescribed diet. ??? Track your blood pressure at home. Report changes in your blood pressure as told. ??? If you are being treated for diabetes, track your blood glucose levels as told. ??? Start or continue an exercise plan. Exercise at least 30 minutes a day, 5 days a week. ??? Keep your immunizations up to date as told. ??? Keep all follow-up visits. This is important. Where to find more information ??? [employer]ney Patients: www.aakp.org ??? National Kidney Foundation: www.kidney.org ??? [employer]: www.akfinc.org ??? Life Options: www.lifeoptions.org ??? Kidney School: www.kidneyschool.org Contact a health care provider if: ??? Your symptoms get worse. ??? You develop new symptoms. Get help right away if: ??? You develop symptoms of ESRD. These include: ??? Headaches. ??? Numbness in your hands or feet. ??? Easy bruising. ??? Frequent hiccups. ??? Chest pain. ??? Shortness of breath. ??? Lack of menstrual periods, in women. ??? You have a fever. ??? You are producing less urine than usual. ??? You have pain or bleeding when you urinate or when you have a bowel movement. These symptoms may represent a serious problem that is an emergency. Do not wait to see if the symptoms will go away. Get medical help right away. Call your local emergency services (911 in the [place] Do not drive yourself to the hospital. Summary ??? Chronic kidney disease (CKD) occurs when the kidneys become damaged slowly over a long period of time. ??? The most common causes of this condition are diabetes and high blood pressure (hypertension). ??? There is no cure for most cases of CKD, but treatment usually relieves symptoms and prevents orslows the worsening of the disease. Treatment may include a combination of lifestyle changes, medicines, and dialysis. This information is not intended to replace advice given to you by your health care provider. Make sure you discuss any questions you have with your health care provider. Document Revised: 05/13/2020 Document Reviewed: 05/13/2020 [employer] Patient Education ?? 2022 [employer]. 03/08/2023 10:35:57 COVID-19 COVID-19 COVID-19, or coronavirus disease 2019, is an infection that is caused by a new (novel) coronavirus called SARS-CoV-2. COVID-19 can cause many symptoms. In some people, the virus may not cause any symptoms. In others, it may cause mild or severe symptoms. Some people with severe infection develop severe disease. What are the causes? This illness is caused by a virus. The virus may be in the air as tiny specks of fluid (aerosols) or droplets, or it may be on surfaces. You may catch the virus by: ??? Breathing in droplets from an infected person. Droplets can be spread by a person breathing, speaking, singing, coughing, or sneezing. ??? Touching something, like a table or a doorknob, that has virus on it (is contaminated) and thentouching your mouth, nose, or eyes. What increases the risk? Risk for infection: You are more likely to get infected with the COVID-19 virus if: ??? You are within 6 ft (1.8 m) of a person with COVID-19 for 15 minutes or longer. ??? You are providing care for a person who is infected with COVID-19. ??? You are in close personal contact with other people. Close personal contact includes hugging, kissing, or sharing eating or drinking utensils. Risk for serious illness caused by COVID-19: You are more likely to get seriously ill from the COVID-19 virus if: ??? You have cancer. ??? You have a long-term (chronic) disease, such as: ??? Chronic lung disease. This includes pulmonary embolism, chronic obstructive pulmonary disease, and cystic fibrosis. ??? Long-term disease that lowers your body's ability to fight infection (immunocompromise). ??? Serious cardiac conditions, such as heart failure, coronary artery disease, or cardiomyopathy. ??? Diabetes. ??? Chronic kidney disease. ??? Liver diseases. These include cirrhosis, nonalcoholic fatty liver disease, alcoholic liver disease, or autoimmune hepatitis. ??? You have obesity. ??? You are or were recently . ??? You have sickle cell disease. What are the signs or symptoms? Symptoms of this condition can range from mild to severe. Symptoms may appear any time from 2 to 14days after being exposed to the virus. They include: ??? Fever or chills. ??? Shortness of breath or trouble breathing. ??? Feeling tired or very tired. ??? Headaches, body aches, or muscle aches. ??? Runny or stuffy nose, sneezing, coughing, or sore throat. ??? New loss of taste or smell. This is rare. Some people may also have stomach problems, such as nausea, vomiting, or diarrhea. Other people may not have any symptoms of COVID-19. How is this diagnosed? This condition may be diagnosed by testing samples to check for the COVID-19 virus. The most commontests are the PCR test and the antigen test. Tests may be done in the lab or at home. They include: ??? Using a swab to take a sample of fluid from the back of your nose and throat (nasopharyngeal fluid), from your nose, or from your throat. ??? Testing a sample of saliva from your mouth. ??? Testing a sample of coughed-up mucus from your lungs (sputum). How is this treated? Treatment for COVID-19 infection depends on the severity of the condition. ??? Mild symptoms can be managed at home with rest, fluids, and pmir-mwt-otixrcg medicines. ??? Serious symptoms may be treated in a hospital intensive care unit (ICU). Treatment in the ICU may include: ??? Supplemental oxygen. Extra oxygen is given through a tube in the nose, a face mask, or a pink. ??? Medicines. These may include: ??? Antivirals, such as monoclonal antibodies. These help your body fight off certain viruses that can cause disease. ??? Anti-inflammatories, such as corticosteroids. These reduce inflammation and suppress the immunesystem. ??? Antithrombotics. These prevent or treat blood clots, if they develop. ??? Convalescent plasma. This helps boost your immune system, if you have an underlying immunosuppressive condition or are getting immunosuppressive treatments. ??? Prone positioning. This means you will lie on your stomach. This helps oxygen to get into your lungs. ??? Infection control measures. If you are at risk for more serious illness caused by COVID-19, your health care provider may prescribe two long-acting monoclonal antibodies, given together every 6 months. How is this prevented? To protect yourself: ??? Use preventive medicine (pre-exposure prophylaxis). You may get pre-exposure prophylaxis if youhave moderate or severe immunocompromise. ??? Get vaccinated. Anyone 6 months old or older who meets guidelines can get a COVID-19 vaccine orvaccine series. This includes people who are or making breast milk (lactating). ??? Get an added dose of COVID-19 vaccine after your first vaccine or vaccine series if you have moderate to severe immunocompromise. This applies if you have had a solid organ transplant or have been diagnosed with an immunocompromising condition. ??? You should get the added dose 4 weeks after you got the first COVID-19 vaccine or vaccine series. ??? If you get an mRNA vaccine, you will need a 3-dose primary series. ? ? If you get the J&J/Robyn vaccine, you will need a 2-dose primary series, with the second dose being an mRNA vaccine. ??? Talk to your health care provider about getting experimental monoclonal antibodies. This treatment is approved under emergency use authorization to prevent severe illness before or after being exposed to the COVID-19 virus. You may be given monoclonal antibodies if: ??? You have moderate or severe immunocompromise. This includes treatments that lower your immune response. People with immunocompromise may not develop protection against COVID-19 when they are vaccinated. ??? You cannot be vaccinated. You may not get a vaccine if you have a severe allergic reaction to the vaccine or its components. ??? You are not fully vaccinated. ??? You are in a facility where COVID-19 is present and: ??? Are in close contact with a person who is infected with the COVID-19 virus. ??? Are at high risk of being exposed to the COVID-19 virus. ??? You are at risk of illness from new variants of the COVID-19 virus. To protect others: If you have symptoms of COVID-19, take steps to prevent the virus from spreading to others. ??? Stay home. Leave your house only to get medical care. Do not use public transit, if possible. ??? Do not travel while you are sick. ??? Wash your hands often with soap and water for at least 20 seconds. If soap and water are not available, use alcohol-based hand flight line mechanic. ??? Make sure that all people in your household wash their hands well and often. ??? Cough or sneeze into a tissue or your sleeve or elbow. Do not cough or sneeze into your hand orinto the air. Where to find more information ??? Centers for Disease Control and Prevention: www.cdc.gov/coronavirus ??? World Health Organization: www.who.int/health-topics/coronavirus Get help right away if: ??? You have trouble breathing. ??? You have pain or pressure in your chest. ??? You are confused. ??? You have bluish lips and fingernails. ??? You have trouble waking from sleep. ??? You have symptoms that get worse. These symptoms may be an emergency. Get help right away. Call 911. ??? Do not wait to see if the symptoms will go away. ??? Do not drive yourself to the hospital. Summary ??? COVID-19 is an infection that is caused by a new coronavirus. ??? Sometimes, there are no symptoms. Other times, symptoms range from mild to severe. Some people with a severe COVID-19 infection develop severe disease. ??? The virus that causes COVID-19 can spread from person to person through droplets or aerosols from breathing, speaking, singing, coughing, or sneezing. ??? Mild symptoms of COVID-19 can be managed at home with rest, fluids, and wfun-cwo-rylhvav medicines. This information is not intended to replace advice given to you by your health care provider. Make sure you discuss any questions you have with your health care provider. Document Revised: 01/27/2022 Document Reviewed: 01/27/2022 [employer] Patient Education ?? 2022 [employer]. Follow Up Care 03/08/2023 08:05:25 With:MARIBETH BARKER MD Address: [address] [place] [address]- When:1 week Comments:You??are fighting COVID-19. ??We discussed??no findings of??pulmonary embolism in your lung and youdo not have any evidence of blood clot in your legs.?? You are a diabetic??with some evidence of renal insufficiency??(kidney damage) from??the diabetes. ??It is important especially now that you receive CT contrast in the setting of dehydration from pneumonia to maintain??great hydration.?? Shoot to have your urine??be light yellow to clear.?? We discussed the??ambiguity of antibiotics given??urine no yusef land with your??degree??and length of symptoms. ??Through shared decision making we decided to proceed with antibiotic therapy??in the form of doxycycline twice daily??for 7 days. ??Prescription was sent. ??Return to the emergency department any new or worsening symptoms or any concerns or worsening illness. Physician Emergency department Note * Minesh Edwards, DO: PERFORM Event Display: ED Note Physician Authored Date: [id number] SHOSHANA SALGADO :1975 Age:47 years Sex:Male Visit Date:03/08/2023 Primary Care Physician: MARIBETH BARKER MD 9:00 AM: Signout from overnight ED attending.?? This is a 47-year-old male PMH DM II, CAD status post [place], morbid obesity, HTN, HLD recently diagnosed with COVID-19 on 02/28/2022 presented to the emergency department with non-productive cough and pleuritic chest discomfort.?? CT angiogram has been ordered and is pending to rule out any component of PE.?? Patient has no unilateral leg swelling or posterior calf tenderness.?? It will also allow us to identify any concerning empyema or secondary bacterial etiologies.?? Laboratory workup is also pending. ?? Initial EKG 9:13 AM: EKG demonstrates normal sinus rhythm at 92 bpm; normal axis; normal intervals;non-specific ST???T wave changes; no objective evidence of acute ischemia or infarction. ?? Repeat EKG 10:46 AM: No dynamic change from prior EKG. ?? Laboratory workup reveals a patient with known DM2 and diabetic nephropathy with baseline creatinines around 1.15 March 2022 peaking to 2.46 on 07/08/2022 and currently at 2.20 with a BUN of 39 and GFR calculated at 37.?? Patient has a level of microcytic anemia with an H&H of 11.4 and hematocrit 37.4 respectively with platelet count 326 and MCV 67.4.?? No white blood cell count elevation cur rently at 10.3.?? Coagulation panel normal.?? Initial troponin was 60 likely an element of the renal dysfunction with repeat at 51 (flat).?? CT angiogram demonstrated no central pulmonary embolism.??There was limited contrast in the peripheral pulmonary vasculature limiting detection of PE.?? No element of empyema and fluffy infiltrates felt to be likely bilateral viral pneumonia.?? There is no objective evidence of acute ischemia or infarction on serial EKG or troponin testing. ?? Discussed findings with patient in detail.?? He states he is feeling better and improved.?? Patienthadonna now had symptoms total of 10+ days with being diagnosed 8 days ago.?? He is requesting antibiotics.?? I do not find it unreasonable to start him on doxycycline 100 mg twice daily but explained that this may not be the mainstay of therapy or assistance in his recovery from his pneumonia as of present time it appears to be primarily viral in origin.?? Conservative measures were discussed as well.?? Importance of hydration especially in the setting of his renal dysfunction and recent contrast imaging was stressed in detail with the patient.?? I encouraged him to have his renal function rechecked by his primary care physician within the next 2 weeks.?? Strict return to ED instructions were also discussed. Electronically Signed on 03/08/23 11:34 AM Minesh Edwards, DO * Federico Cervantes MD: PERFORM Event Display: ED Note Physician Authored Date: [id number] SHOSHANA SALGADO :1975 Age:47 years Sex:Male Visit Date:03/08/2023 Primary Care Physician: MARIBETH BARKER MD Basic Information Time Seen: Federico Cervantes MD / 03/08/2023 08:15 Chief Complaint Pt tested positive for covid on 02/28, has had lasting symptoms including cough SOB and CP. Feels like he is not getting better and is concerned about the chest pain. No medications taken this am. History Of Present Illness: 47-year-old male with past medical history significant for diabetes and previous [place] presents to theER??complaining of cough and??chest pain. ??The patient states he was diagnosed with COVID on 02/28 and has had persistent symptoms that seem to be worsening.?? He has had cough,??difficulty breathing,chest pain in the lower chest worse with deep breaths, difficulty sleeping due to the cough, weakness, and fatigue. ??He thinks he is getting worse rather than better??and now comes into the ER. ??Nopain or swelling in his legs.?? Eating and drinking but less than normal. Review of Systems: CONSTITUTIONAL:??No fevers or chills. EYES:??No change in vision. ENT:??No sore throat. ??No headache. ??No neck pain. CARDIOVASCULAR:??No palpitations or passing out episodes. RESPIRATORY:??No hemoptysis. GI:??No abdominal pain. ??No nausea, vomiting or diarrhea. :??No change in urination. SKIN:??No rash. NEUROLOGIC:??No focal numbness or weakness. LYMPH:??No swelling. ?? Review of systems otherwise as stated in HPI Physical Exam Vitals & Measurements T:??36?C ??(Temporal Artery)?? HR:??92??(Peripheral)?? RR:??18?? BP:??163/89?? SpO2:??95%?? HT:??177.80??cm?? WT:??117.93??kg?? BMI:??37.3?? O2 Therapy:??Room air?? GENERAL:??Awake and alert. ??No acute distress. HEENT:??Normocephalic, atraumatic. ??Mucous membranes are moist. NECK:??Supple. ??Nontender. HEART:??Regular rate and rhythm. ??S1 and S2. Reproducible chest tenderness to the lower sternal border. LUNGS:??No respiratory distress or accessory muscle usage.?? Mild??coarse rhonchi at the bilateral bases.?? No wheezes. ABDOMEN:??Soft, nontender, nondistended. BACK:??Normal to inspection and nontender. EXTREMITIES:??Nontender and without edema. NEUROLOGIC:??Awake, alert, and oriented x3. ??Motor and sensory grossly intact. SKIN:??Warm and dry. VASCULAR:??Radial 2+ bilaterally. Medical Decision Making: COVID. ??The patient??is 8 days out from [facility] with continued symptoms. ??Chest x-ray shows diffuse??peripheral infiltrates consistent with COVID-pneumonia. ??Vital signs are stable here.?? He has a history of previous [place] and??further workup was felt to be indicated.?? Chest pain is overall reproducible and EKG does not show any acute injury pattern and symptoms seem most likely musculoskeletal??however laboratory studies and CTA have been ordered and are pending. ??The patient was signed out at shift change to??Dr. Edwards for reevaluation and appropriate disposition. Procedure No Qualifying Data Assessment/Plan 1.??Pneumonia due to COVID-19 virus??U07.1 Pneumonia due to coronavirus disease 2019??J12.82 Orders: Toradol, 30 mg = 1 mL, IV Push, Vial, Once, First Dose: 03/08/23 10:00:00 EST, Stop Date: 03/08/23 10:00:00 EST, Physician Stop, Routine Sodium Chloride 0.9% 1,000 mL, Total Volume (mL): 1,000, 1,000 mL, Soln-IV, Medication Bolus, 999 mL/hr, Order Duration: 1 times, Start Date: 03/08/23 9:23:00 EST, Stop Date: 03/08/23 10:22:00 EST, 117.93 kg, Populate Charting Weight From Order, 2.41, m2 Automated Diff, Blood, Stat, 03/08/23 8:57:00 EST, Once, Nurse collect, [id number] BNP, Blood, Stat, 03/08/23 8:57:00 EST, Once, Nurse collect CBC w/ Diff, Blood, Stat, 03/08/23 8:57:00 EST, Once, Nurse collect Comprehensive Metabolic Panel, Blood, Stat, 03/08/23 8:57:00 EST, Once, Nurse collect CT Angio Chest, 03/08/23 9:23:00 EST, Stat, Reason: chest pain, Transport Mode: Stretcher CV Electrocardiogram 12 Lead, 03/08/23 8:57:00 EST, Stat, Reason: Chest Pain, Stop date and time 03/08/23 8:57:00 EST, ORD_SET_REQ_DT_RANGE, [facility] Internal Person Id Lipase Level, Blood, Stat, 03/08/23 8:57:00 EST, Once, Nurse collect Magnesium Level, Blood, Stat, 03/08/23 8:57:00 EST, Once, Nurse collect PT/ INR, Blood, Stat, 03/08/23 8:57:00 EST, Once, Nurse collect PTT, Blood, Stat, 03/08/23 8:57:00 EST, Once, Nurse collect Troponin-I High Sensitivity, Blood, Stat, 03/08/23 8:57:00 EST, Once, Nurse collect Troponin-I High Sensitivity, Blood, Stat, 03/08/23 9:57:00 EST, Once, Nurse collect Medication Reconciliation Unchanged amoxicillin-clavulanate (amoxicillin-clavulanate 875 mg-125 mg oral [...] cigarettes a day per day. 7 year(s). Diagnostic Results XR Chest 2 Views 03/08/2023 09:03 EST XR Chest 2 Views ?? 03/08/23 08:31:52 PROCEDURE INFORMATION: Exam: XR Chest Exam date and time: 03/08/2023 8:31 AM Age: 47 years old Clinical indication: Shortness of breath; Additional info: SOB ?? TECHNIQUE: Imaging protocol: Radiologic exam of the chest. Views: 2 views. ?? COMPARISON: CR XR CHEST, 2 VIEWS 01/05/2022 3:14 PM ?? FINDINGS: Lungs: Multifocal patchy nodular airspace opacities in the right mid and lower lung zone regions. The lungs are otherwise clear. Pleural spaces: Unremarkable. No pleural effusion. No pneumothorax. Heart/Mediastinum: Cardiac mediastinal silhouette is within normal limits for age. Bones/joints: Mild axial spine dextroscoliosis, unchanged ?? IMPRESSION: 1. Interval multifocal possible pneumonia on the right.Follow up to clearing advised to exclude other process. 2. No other active disease. ? THIS DOCUMENT HAS BEEN ELECTRONICALLY SIGNED BY STEPHEN BARBOUR MD on 03/08/2023 09:00 AM ?? Signed By: Stephen Barbour MD ECG Normal sinus rhythm at 93.?? Q wave lead III. ??No acute injury pattern. Electronically Signed on 03/08/23 09:27 AM Federico Cervantes MD Emergency department Discharge instructions * Minesh Edwards, DO: PERFORM Event Display: ED Discharge Information Authored Date: [id number] SHOSHANA SALGADO :1975 Age:47 years Sex:Male Visit Date:03/08/2023 Primary Care Physician: MARIBETH BARKER MD Discharge Instructions We would like to thank you for allowing us to assist you with your healthcare needs. The following includes patient education materials and information regarding your injury/illness. Diagnosis from Today's Visit Pneumonia due to COVID-19 virus Anemia CRI (chronic renal insufficiency) Dehydration Discharge Vitals Temperature??(Temporal Artery) 96.8 ??F (36 ??C) Heart Rate??(Peripheral) 95 Heart Rate??(Monitored) 94 Respiratory Rate?? 18 Blood Pressure?? 133/70?? Height?? 70.00 in (177.80 cm) Weight?? 260.04 lb (117.93 kg) BMI?? 37.3 Allergies Diphendramine HCL??(Hyperactivity level) melatonin??(Restless legs syndrome) What to Do Next You Need to Schedule the Following Appointments Follow Up with??MARIBETH BARKER MD When:??Within 1 week Why: You??are fighting COVID-19. ??We discussed??no findings of??pulmonary embolism in your lung and you do not have any evidence of blood clot in your legs.?? You are a diabetic??with some evidence of renal insufficiency??(kidney damage) from??the diabetes. ??It is important especially now that you receive CT contrast in the setting of dehydration from pneumonia to maintain??great hydration.?? Shoot to have your urine??be light yellow to clear.?? We discussed the??ambiguity of antibiotics given??urine no yusef land with your??degree??and length of symptoms. ??Through shared decision making wedecided to proceed with antibiotic therapy??in the form of doxycycline twice daily??for 7 days. ??Pr escription was sent. ??Return to the emergency department any new or worsening symptoms or any concerns or worsening illness. Where: [address] [place] [id number]- You were treated today on an [...] Much When Why Instructions Next Dose New doxycycline (doxycycline monohydrate 100 mg oral tablet) 1 tab Oral (given by mouth) 2 times a day Pneumonia due to COVID-19 virus Anemia CRI (chronic renal insufficiency) Dehydration Duration: 7 Days Pickup at [facility] Unchanged amoxicillin-clavulanate (amoxicillin-clavulanate 875 mg-125 mg oral [...] (given by mouth) Every evening Pharmacy Information [facility]: [address], [place] [phone] Education Materials Dehydration, Adult Dehydration is a condition in which there is not enough water or other fluids in the body. This happens when a person loses more fluids than he or she takes in. Important organs, such as the kidneys,brain, and heart, cannot function without a proper amount of fluids. Any loss of fluids from the body can lead to dehydration. Dehydration can be mild, moderate, or severe. It should be treated right away to prevent it from becoming severe. What are the causes? Dehydration may be caused by: ? Conditions that cause loss of water or other fluids, such as diarrhea, vomiting, or sweating or urinating a lot. ? Not drinking enough fluids, especially when you are ill or doing activities that require a lot of energy. ? Other illnesses and conditions, such as fever or infection. ? Certain medicines, such as medicines that remove excess fluid from the body (diuretics). ? Lack of safe drinking water. ? Not being able to get enough water and food. What increases the risk? The following factors may make you more likely to develop this condition: ? Having a long-term (chronic) illness that has not been treated properly, such as diabetes, heart disease, or kidney disease. ? Being 65 years of age or older. ? Having a disability. ? Living in a place that is high in altitude, where thinner, platen drier operator air causes more fluid loss. ? Doing exercises that put stress on your body for a long time (endurance sports). What are the signs or symptoms? Symptoms of dehydration depend on how severe it is. Mild or moderate dehydration ? Thirst. ? Dry lips or dry mouth. ? Dizziness or light-headedness, especially when standing up from a seated position. ? Muscle cramps. ? Dark urine. Urine may be the color of tea. ? Less urine or tears produced than usual. ? Headache. Severe dehydration ? Changes in skin. Your skin may be cold and clammy, blotchy, or pale. Your skin also may not return to normal after being lightly pinched and released. ? Little or no tears, urine, or sweat. ? Changes in vital signs, such as rapid breathing and low blood pressure. Your pulse may be weak or may be faster than 100 beats a minute when you are sitting still. ? Other changes, such as: ? Feeling very thirsty. ? Sunken eyes. ? Cold hands and feet. ? Confusion. ? Being very tired (lethargic) or having trouble waking from sleep. ? Short-term weight loss. ? Loss of consciousness. How is this diagnosed? This condition is diagnosed based on your symptoms and a physical exam. You may have blood and urine tests to help confirm the diagnosis. How is this treated? Treatment for this condition depends on how severe it is. Treatment should be started right away. Do not wait until dehydration becomes severe. Severe dehydration is an emergency and needs to be treated in a hospital. ? Mild or moderate dehydration can be treated at home. You may be asked to: ? Drink more fluids. ? Drink an oral rehydration solution (ORS). This drink helps restore proper amounts of fluids and salts and minerals in the blood (electrolytes). ? Severe dehydration can be treated: ? With IV fluids. ? By correcting abnormal levels of electrolytes. This is often done by giving electrolytes through a tube that is passed through your nose and into your stomach (nasogastric tube, or NG tube). ? By treating the underlying cause of dehydration. Follow these instructions at home: Oral rehydration solution If told by your health care provider, drink an ORS: ? Make an ORS by following instructions on the package. ? Start by drinking small amounts, about ?? cup (120 mL) every 5???10 minutes. ? Slowly increase how much you drink until you have taken the amount recommended by your health care provider. Eating and drinking ? Drink enough clear fluid to keep your urine pale yellow. If you were told to drink an ORS, finish the ORS first and then start slowly drinking other clear fluids. Drink fluids such as: ? Water. Do not drink only water. Doing that can lead to hyponatremia, which is having too little salt (sodium) in the body. ? Water from ice chips you suck on. ? Fruit juice that you have added water to (diluted fruit juice). ? Low-calorie sports drinks. ? Eat foods that contain a healthy balance of electrolytes, such as bananas, oranges, potatoes, tomatoes, and spinach. ? Do not drink alcohol. ? Avoid the following: ? Drinks that contain a lot of sugar. These include high-calorie sports drinks, fruit juice that is not diluted, and soda. ? Caffeine. ? Foods that are greasy or contain a lot of fat or sugar. General instructions ? Take hlnd-xyy-lmwqrqv and prescription medicines only as told by your health care provider. ? Do not take sodium tablets. Doing that can lead to having too much sodium in the body (hypernatremia). ? Return to your normal activities as told by your health care provider. Ask your health care provider what activities are safe for you. ? Keep all follow-up visits as told by your health care provider. This is important. Contact a health care provider if: ? You have muscle cramps, pain, or discomfort, such as: ? Pain in your abdomen and the pain gets worse or stays in one area (localizes). ? Stiff neck. ? You have a rash. ? You are more irritable than usual. ? You are sleepier or have a harder time waking than usual. ? You feel weak or dizzy. ? You feel very thirsty. Get help right away if you have: ? Any symptoms of severe dehydration. ? Symptoms of vomiting, such as: ? You cannot eat or drink without vomiting. ? Vomiting gets worse or does not go away. ? Vomit includes blood or green matter (bile). ? Symptoms that get worse with treatment. ? A fever. ? A severe headache. ? Problems with urination or bowel movements, such as: ? Diarrhea that gets worse or does not go away. ? Blood in your stool (feces). This may cause stool to look black and tarry. ? Not urinating, or urinating only a small amount of very dark urine, within 6???8 hours. ? Trouble breathing. These symptoms may represent a serious problem that is an emergency. Do not wait to see if the symptoms will go away. Get medical help right away. Call your local emergency services (911 in the [place] Do not drive yourself to the hospital. Summary ? Dehydration is a condition in which there is not enough water or other fluids in the body. This happens when a person loses more fluids than he or she takes in. ? Treatment for this condition depends on how severe it is. Treatment should be started right away. Do not wait until dehydration becomes severe. ? Drink enough clear fluid to keep your urine pale yellow. If you were told to drink an oral rehydration solution (ORS), finish the ORS first and then start slowly drinking other clear fluids. ? Take yvbn-jjv-rhmfqvz and prescription medicines only as told by your health care provider. ? Get help right away if you have any symptoms of severe dehydration. This information is not intended to replace advice given to you by your health care provider. Make sure you discuss any questions you have with your health care provider. Document Revised: 09/19/2019 Document Reviewed: 09/19/2019 [employer] Patient Education ?? 2022 [employer]. Chronic Kidney Disease, Adult Chronic kidney disease (CKD) occurs when the kidneys are slowly and permanently damaged over a longperiod of time. The kidneys are a pair of organs that do many important jobs in the body, including: ? Removing waste and extra fluid from the blood to make urine. ? Making hormones that maintain the amount of fluid in tissues and blood vessels. ? Maintaining the right amount of fluids and chemicals in the body. A small amount of kidney damage may not cause problems, but a large amount of damage may make it hard or impossible for the kidneys to work right. Steps must be taken to slow kidney damage or to stopit from getting worse. If steps are not taken, the kidneys may stop working permanently (end-stage renal disease, or ESRD). Most of the time, CKD does not go away, but it can often be controlled. People who have CKD are usually able to live full lives. What are the causes? The most common causes of this condition are diabetes and high blood pressure (hypertension). Other causes include: ? Cardiovascular diseases. These affect the heart and blood vessels. ? Kidney diseases. These include: ? Glomerulonephritis, or inflammation of the tiny filters in the kidneys. ? Interstitial nephritis. This is swelling of the small tubes of the kidneys and of the surrounding structures. ? Polycystic kidney disease, in which clusters of fluid-filled sacs form within the kidneys. ? Renal vascular disease. This includes disorders that affect the arteries and veins of the kidneys. ? Diseases that affect the body's defense system (immune system). ? A problem with urine flow. This may be caused by: ? Kidney stones. ? Cancer. ? An enlarged prostate, in males. ? A kidney infection or urinary tract infection (UTI) that keeps coming back. ? Vasculitis. This is swelling or inflammation of the blood vessels. What increases the risk? Your chances of having kidney disease increase with age. The following factors may make you more likely to develop this condition: ? A family history of kidney disease or kidney failure. Kidney failure means the kidneys can no longer work right. ? Certain genetic diseases. ? Taking medicines often that are damaging to the kidneys. ? Being around or being in contact with toxic substances. ? Obesity. ? A history of tobacco use. What are the signs or symptoms? Symptoms of this condition include: ? Feeling very tired (lethargic) and having less energy. ? Swelling, or edema, of the face, legs, ankles, or feet. ? Nausea or vomiting, or loss of appetite. ? Confusion or trouble concentrating. ? Muscle twitches and cramps, especially in the legs. ? Dry, itchy skin. ? A metallic taste in the mouth. ? Producing less urine, or producing more urine (especially at night). ? Shortness of breath. ? Trouble sleeping. CKD may also result in not having enough red blood cells or hemoglobin in the blood (anemia) or having weak bones (bone disease). Symptoms develop slowly and may not be obvious until the kidney damage becomes severe. It is possible to have kidney disease for years without having symptoms. How is this diagnosed? This condition may be diagnosed based on: ? Blood tests. ? Urine tests. ? Imaging tests, such as an ultrasound or a CT scan. ? A kidney biopsy. This involves removing a sample of kidney tissue to be looked at under a microscope. Results from these tests will help to determine how serious the CKD is. How is this treated? There is no cure for most cases of this condition, but treatment usually relieves symptoms and prevents or slows the worsening of the disease. Treatment may include: ? Diet changes, which may require you to avoid alcohol and foods that are high in salt, potassium, phosphorous, and protein. ? Medicines. These may: ? Lower blood pressure. ? Control blood sugar (glucose). ? Relieve anemia. ? Relieve swelling. ? Protect your bones. ? Improve the balance of salts and minerals in your blood (electrolytes). ? Dialysis, which is a type of treatment that removes toxic waste from the body. It may be needed if you have kidney failure. ? Managing any other conditions that are causing your CKD or making it worse. Follow these instructions at home: Medicines ? Take hgxm-gux-lfioiia and prescription medicines only as told by your health care provider. The amount of some medicines that you take may need to be changed. ? Do not take any new medicines unless approved by your health care provider. Many medicines can makekidney damage worse. ? Do not take any vitamin and mineral supplements unless approved by your health care provider. Many nutritional supplements can make kidney damage worse. Lifestyle ? Do not use any products that contain nicotine or tobacco, such as cigarettes, e- cigarettes, and chewing tobacco. If you need help quitting, ask your health care provider. ? If you drink alcohol: ? Limit how much you use to: ? 0???1 drink a day for women who are not . ? 0???2 drinks a day for men. ? Know how much alcohol is in your drink. In the [place] one drink equals one 12 oz bottle of beer (355mL), one 5 oz glass of wine (148 mL), or one 1?? oz glass of hard liquor (44 mL). ? Maintain a healthy weight. If you need help, ask your health care provider. General instructions ? Follow instructions from your health care provider about eating or drinking restrictions, includingany prescribed diet. ? Track your blood pressure at home. Report changes in your blood pressure as told. ? If you are being treated for diabetes, track your blood glucose levels as told. ? Start or continue an exercise plan. Exercise at least 30 minutes a day, 5 days a week. ? Keep your immunizations up to date as told. ? Keep all follow-up visits. This is important. Where to find more information ? [employer]ney Patients: www.aakp.org ? National Kidney Foundation: www.kidney.org ? [employer]: www.akfinc.org ? Life Options: www.lifeoptions.org ? Kidney School: www.kidneyschool.org Contact a health care provider if: ? Your symptoms get worse. ? You develop new symptoms. Get help right away if: ? You develop symptoms of ESRD. These include: ? Headaches. ? Numbness in your hands or feet. ? Easy bruising. ? Frequent hiccups. ? Chest pain. ? Shortness of breath. ? Lack of menstrual periods, in women. ? You have a fever. ? You are producing less urine than usual. ? You have pain or bleeding when you urinate or when you have a bowel movement. These symptoms may represent a serious problem that is an emergency. Do not wait to see if the symptoms will go away. Get medical help right away. Call your local emergency services (911 in the [place] Do not drive yourself to the hospital. Summary ? Chronic kidney disease (CKD) occurs when the kidneys become damaged slowly over a long period of time. ? The most common causes of this condition are diabetes and high blood pressure (hypertension). ? There is no cure for most cases of CKD, but treatment usually relieves symptoms and prevents or slows the worsening of the disease. Treatment may include a combination of lifestyle changes, medicines, and dialysis. This information is not intended to replace advice given to you by your health care provider. Make sure you discuss any questions you have with your health care provider. Document Revised: 05/13/2020 Document Reviewed: 05/13/2020 [employer] Patient Education ?? 2022 [employer] COVID-19 COVID-19, or coronavirus disease 2019, is an infection that is caused by a new (novel) coronavirus called SARS-CoV-2. COVID-19 can cause many symptoms. In some people, the virus may not cause any symptoms. In others, it may cause mild or severe symptoms. Some people with severe infection develop severe disease. What are the causes? This illness is caused by a virus. The virus may be in the air as tiny specks of fluid (aerosols) or droplets, or it may be on surfaces. You may catch the virus by: ? Breathing in droplets from an infected person. Droplets can be spread by a person breathing, speaking, singing, coughing, or sneezing. ? Touching something, like a table or a doorknob, that has virus on it (is contaminated) and then touching your mouth, nose, or eyes. What increases the risk? Risk for infection: You are more likely to get infected with the COVID-19 virus if: ? You are within 6 ft (1.8 m) of a person with COVID-19 for 15 minutes or longer. ? You are providing care for a person who is infected with COVID-19. ? You are in close personal contact with other people. Close personal contact includes hugging, kissing, or sharing eating or drinking utensils. Risk for serious illness caused by COVID-19: You are more likely to get seriously ill from the COVID-19 virus if: ? You have cancer. ? You have a long-term (chronic) disease, such as: ? Chronic lung disease. This includes pulmonary embolism, chronic obstructive pulmonary disease, and cystic fibrosis. ? Long-term disease that lowers your body's ability to fight infection (immunocompromise). ? Serious cardiac conditions, such as heart failure, coronary artery disease, or cardiomyopathy. ? Diabetes. ? Chronic kidney disease. ? Liver diseases. These include cirrhosis, nonalcoholic fatty liver disease, alcoholic liver disease,or autoimmune hepatitis. ? You have obesity. ? You are or were recently . ? You have sickle cell disease. What are the signs or symptoms? Symptoms of this condition can range from mild to severe. Symptoms may appear any time from 2 to 14days after being exposed to the virus. They include: ? Fever or chills. ? Shortness of breath or trouble breathing. ? Feeling tired or very tired. ? Headaches, body aches, or muscle aches. ? Runny or stuffy nose, sneezing, coughing, or sore throat. ? New loss of taste or smell. This is rare. Some people may also have stomach problems, such as nausea, vomiting, or diarrhea. Other people may not have any symptoms of COVID-19. How is this diagnosed? This condition may be diagnosed by testing samples to check for the COVID-19 virus. The most commontests are the PCR test and the antigen test. Tests may be done in the lab or at home. They include: ? Using a swab to take a sample of fluid from the back of your nose and throat (nasopharyngeal fluid), from your nose, or from your throat. ? Testing a sample of saliva from your mouth. ? Testing a sample of coughed-up mucus from your lungs (sputum). How is this treated? Treatment for COVID-19 infection depends on the severity of the condition. ? Mild symptoms can be managed at home with rest, fluids, and ifkg-hwl-hnvmwvj medicines. ? Serious symptoms may be treated in a hospital intensive care unit (ICU). Treatment in the ICU may include: ? Supplemental oxygen. Extra oxygen is given through a tube in the nose, a face mask, or a pink. ? Medicines. These may include: ? Antivirals, such as monoclonal antibodies. These help your body fight off certain viruses that can cause disease. ? Anti-inflammatories, such as corticosteroids. These reduce inflammation and suppress the immune system. ? Antithrombotics. These prevent or treat blood clots, if they develop. ? Convalescent plasma. This helps boost your immune system, if you have an underlying immunosuppressive condition or are getting immunosuppressive treatments. ? Prone positioning. This means you will lie on your stomach. This helps oxygen to get into your lungs. ? Infection control measures. If you are at risk for more serious illness caused by COVID-19, your health care provider may prescribe two long-acting monoclonal antibodies, given together every 6 months. How is this prevented? To protect yourself: ? Use preventive medicine (pre-exposure prophylaxis). You may get pre-exposure prophylaxis if you have moderate or severe immunocompromise. ? Get vaccinated. Anyone 6 months old or older who meets guidelines can get a COVID-19 vaccine or vaccine series. This includes people who are or making breast milk (lactating). ? Get an added dose of COVID-19 vaccine after your first vaccine or vaccine series if you have moderate to severe immunocompromise. This applies if you have had a solid organ transplant or have been diagnosed with an immunocompromising condition. ? You should get the added dose 4 weeks after you got the first COVID-19 vaccine or vaccine series. ? If you get an mRNA vaccine, you will need a 3-dose primary series. ? If you get the J&J/Robyn vaccine, you will need a 2-dose primary series, with the second dosebeing an mRNA vaccine. ? Talk to your health care provider about getting experimental monoclonal antibodies. This treatment is approved under emergency use authorization to prevent severe illness before or after being exposed to the COVID-19 virus. You may be given monoclonal antibodies if: ? You have moderate or severe immunocompromise. This includes treatments that lower your immune response. People with immunocompromise may not develop protection against COVID-19 when they are vaccinated. ? You cannot be vaccinated. You may not get a vaccine if you have a severe allergic reaction to the vaccine or its components. ? You are not fully vaccinated. ? You are in a facility where COVID-19 is present and: ? Are in close contact with a person who is infected with the COVID-19 virus. ? Are at high risk of being exposed to the COVID-19 virus. ? You are at risk of illness from new variants of the COVID-19 virus. To protect others: If you have symptoms of COVID-19, take steps to prevent the virus from spreading to others. ? Stay home. Leave your house only to get medical care. Do not use public transit, if possible. ? Do not travel while you are sick. ? Wash your hands often with soap and water for at least 20 seconds. If soap and water are not available, use alcohol-based hand flight line mechanic. ? Make sure that all people in your household wash their hands well and often. ? Cough or sneeze into a tissue or your sleeve or elbow. Do not cough or sneeze into your hand or into the air. Where to find more information ? Centers for Disease Control and Prevention: www.cdc.gov/coronavirus ? World Health Organization: www.who.int/health-topics/coronavirus Get help right away if: ? You have trouble breathing. ? You have pain or pressure in your chest. ? You are confused. ? You have bluish lips and fingernails. ? You have trouble waking from sleep. ? You have symptoms that get worse. These symptoms may be an emergency. Get help right away. Call 911. ? Do not wait to see if the symptoms will go away. ? Do not drive yourself to the hospital. Summary ? COVID-19 is an infection that is caused by a new coronavirus. ? Sometimes, there are no symptoms. Other times, symptoms range from mild to severe. Some people witha severe COVID-19 infection develop severe disease. ? The virus that causes COVID-19 can spread from person to person through droplets or aerosols from breathing, speaking, singing, coughing, or sneezing. ? Mild symptoms of COVID-19 can be managed at home with rest, fluids, and chac-whn-ckoztco medicines. This information is not intended to replace advice given to you by your health care provider. Make sure you discuss any questions you have with your health care provider. Document Revised: 01/27/2022 Document Reviewed: 01/27/2022 [employer] Patient Education ?? 2022 [employer]. Tests Performed Radiology CT Angio Chest 03/08/2023 10:50 EST XR Chest 2 Views 03/08/2023 09:03 EST Medications and Immunizations Administered Given Sodium Chloride 0.9%, 1000 mL, Medication Bolus aspirin, 324 mg, Oral. For: Pneumonia due to COVID-19 virus nitroglycerin 0.4 mg sublingual tablet, 0.4 mg, Sublingual. For: Pneumonia due to COVID-19 virus Toradol, 30 mg, IV Push Lab Test Name Test Result Date/Time WBC 10.3 K/mcL 03/08/2023 09:15 EST RBC 5.55 Million/mcL 03/08/2023 09:15 EST Hgb 11.4 g/dL 03/08/2023 09:15 EST Hct 37.4 % 03/08/2023 09:15 EST MCV 67.4 fL 03/08/2023 09:15 EST MCH 20.5 pg 03/08/2023 09:15 EST MCHC 30.3 g/dL 03/08/2023 09:15 EST RDW-CV 19.0 % 03/08/2023 09:15 EST Platelets 326 K/mcL 03/08/2023 09:15 EST MPV 8.2 fL 03/08/2023 09:15 EST Neutro Auto 78.4 % 03/08/2023 09:15 EST Lymph Auto 11.1 % 03/08/2023 09:15 EST [place] Auto 8.9 % 03/08/2023 09:15 EST Eos, Auto 1.20 % 03/08/2023 09:15 EST Basophil Auto 0.4 % 03/08/2023 09:15 EST Neutro Absolute 8.0 K/mcL 03/08/2023 09:15 EST Lymph Absolute 1.1 K/mcL 03/08/2023 09:15 EST [place] Absolute 0.9 K/mcL 03/08/2023 09:15 EST Eos Absolute 0.1 K/mcL 03/08/2023 09:15 EST Baso Absolute 0.0 K/mcL 03/08/2023 09:15 EST RBC Morph Abnormal 03/08/2023 09:15 EST Anisocyte 2+ 03/08/2023 09:15 EST Hypochromia 1+ 03/08/2023 09:15 EST Microcyte 3+ 03/08/2023 09:15 EST Ovalocytes 1+ 03/08/2023 09:15 EST Plt Estimation Normal 03/08/2023 09:15 EST Plt Large Moderate 03/08/2023 09:15 EST Polychrom 1+ 03/08/2023 09:15 EST Stomatocyte 1+ 03/08/2023 09:15 EST Slide Review Morph Only 03/08/2023 09:15 EST Prothrombin Time 9.1 seconds 03/08/2023 09:30 EST INR 0.9 03/08/2023 09:30 EST Partial Thromboplastin Time 27.9 seconds 03/08/2023 09:30 EST Sodium Level 140 mmol/L 03/08/2023 09:15 EST Potassium Level 4.7 mmol/L 03/08/2023 09:15 EST Chloride Level 108 mmol/L 03/08/2023 09:15 EST CO2 23 mmol/L 03/08/2023 09:15 EST Alk Phos 70 IntlUnit/L 03/08/2023 09:15 EST AST 17 IntlUnit/L 03/08/2023 09:15 EST ALT 19 IntlUnit/L 03/08/2023 09:15 EST BUN 39 mg/dL 03/08/2023 09:15 EST Glucose Level 188 mg/dL 03/08/2023 09:15 EST Creatinine Level 2.20 mg/dL 03/08/2023 09:15 EST BUN/Creat Ratio 17.7 03/08/2023 09:15 EST eGFR CKD-EPI 37 mL/min/1.73 m2 03/08/2023 09:15 EST Calcium Level 8.9 mg/dL 03/08/2023 09:15 EST Protein Total 7.6 g/dL 03/08/2023 09:15 EST Albumin Level 3.6 g/dL 03/08/2023 09:15 EST Globulin 4.0 g/dL 03/08/2023 09:15 EST A/G Ratio 0.9 g/dL 03/08/2023 09:15 EST Bilirubin Total 0.4 mg/dL 03/08/2023 09:15 EST Anion Gap 9.0 03/08/2023 09:15 EST Lipase Level 20 unit/L 03/08/2023 09:15 EST Magnesium Level 2.3 mg/dL 03/08/2023 09:15 EST Osmolality 294 mOsm/kg 03/08/2023 09:15 EST BNP 35 pg/mL 03/08/2023 09:15 EST Troponin-I HS 51 ng/L 03/08/2023 10:20 EST Patient/Vibration Engineer Signature Patient Name:SHOSHANA SALGADO I have received this information and my questions have been answered. Patient/Vibration Engineer Name: Patient/Vibration Engineer Signature: Relationship to Patient: Witness Name/Signature: Date: Electronically Signed on: 03/08/2023 11:39 ESTSigned by:CHANDRAKANT Patient Care team information Care Team Personnel Name: MARIBETH BARKER MD Position: No Access Member Role: Primary Care Physician Address: Address: [address] [place] [phone] [place] [address] Care Team Related Persons Name: GRETTA SALGADO Name: GRETTA SALGADO Address: Home [address] [place] [phone] [facility] Address: M[address] [id number]
--- OUTSIDE RECORDS SUMMARY | 2024-01-04 13:05 | XMS_ITS | Continuity of Care Document ---
Author Organization [facility] Address [address] [place] [id number] Care Team Providers Care Curer Acid Drum Name Role Phone MJ WILLS, MARIBETH Constantino Primary Care Physician [phone] Encounter [facility] FIN NBR [id number] Date(s): 12/01/23 - 12/01/[address] [id number] [phone] Encounter Diagnosis Insomnia(Discharge Diagnosis) - 12/01/23 Anxiety(Discharge Diagnosis) - 12/01/23 Discharge Disposition: Home or Self Care Attending Physician: Julio Fan MD Admitting Physician: Julio Fan MD Allergies, Adverse Reactions, Alerts Substance Criticality Severity Reaction Reaction Severity Status melatonin Unable to assess criticality Unknown Restless legs syndrome Active Diphendramine HCL Unable to assess criticality Unknown Hyperactivity level Active Medications amiodarone 200 mg oral tablet 200 [...] QID, # 20 cap, 0 Refill(s), Pharmacy: [id number], 177.8, cm, 09/11/23 11:32:00 [...] FOR PAIN Start Date: 12/01/23 Status: Ordered sevelamer carbonate 800 mg oral tablet TAKE 1 TABLET BY MOUTH THREE TIMES DAILY WITH MEALS Start Date: 12/01/23 Status: Ordered temazepam 7.5 mg oral capsule 7.5 mg = 1 cap, Oral, every night at bedtime, PRN as needed for sleep, # 30 cap, 0 Refill(s), 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, 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: [id number], 177.8, cm, 12/01/23 21:30:00 [...] ONCE DAILY Start Date: 12/01/23 Status: Ordered Problem List Condition Confirmation Course [...] placement Completed Results Laboratory List Name Date Glucose POCT 12/01/23 .Morphology (LTTL) 12/01/23 Automated Diff 12/01/23 CBC w/ Diff 12/01/23 Comprehensive Metabolic Panel (CMP) 11/20 03/15 Most recent to oldest [Reference Range]: 1 WBC [4.8-10.8 K/mcL] 6.8 K/mcL (12/01/23 9:05 PM) RBC [4.70-6.10 Million/mcL] 4.45 Million /mcL *LOW* (12/01/23 9:05 PM) Neutro Auto [42.2-75.2 %] 65.1 % (12/01/23 9:05 PM) Lymph Auto [20.5-51.1 %] 21.8 % (12/01/23 9:05 PM) [place] Auto [1.7-9.3 %] 9.2 % (12/01/23 9:05 PM) Basophil Auto [0.0-0.8 %] 1.7 % *HI* (12/01/23 9:05 PM) BUN [7-25 mg/dL] 53 mg/dL *HI* (12/01/23 9:05 PM) Glucose POC 94 *NA* (12/01/23 10:19 PM) Glucose Level [70-109 mg/dL] 75 mg/dL (12/01/23 9:05 PM) Potassium Level [3.5-5.1 mmol/L] 5.0 mmo l/L (12/01/23 9:05 PM) Baso Absolute [0.0-0.2 K/mcL] 0.1 K/mcL (12/01/23 9:05 PM) MCV [80.0-94.0 fL] 71.3 fL *LOW* (12/01/23 9:05 PM) RBC Morph [Normal] Abnormal *ABN* (12/01/23:05 PM) AST [13-39 IntlUnit/L] 11 IntlUnit/L *LOW* (12/01/23 9:05 PM) ALT [7-52 IntlUnit/L] 13 IntlUnit/L (12/01/23 9:05 PM) MCHC [32.0-37.0 g/dL] 30.3 g/dL *LOW* (12/01/23 9:05 PM) Osmolality [275-295 mOsm/kg] 292 mOsm/kg (12/01/23 9:05 PM) Sodium Level [136-145 mmol/L] 140 mmol/L (12/01/23 9:05 PM) Lymph Absolute [1.2-3.4 K/mcL] 1.5 K/mcL (12/01/23 9:05 PM) Hct [42.0-52.0 %] 31.7 % *LOW* (12/01/23 9:05 PM) Microcyte 3+ *ABN* (12/01/23 9:05 PM) Hypochromia 1+ *ABN* (12/01/23 9:05 PM) Calcium Level [8.6-10.3 mg/dL] 9.1 mg/dL (12/01/23 9:05 PM) [place] Absolute [0.1-0.6 K/mcL] 0.6 K/mcL (12/01/23 9:05 PM) Albumin Level [3.5-5.7 g/dL] 3.7 g/dL (12/01/23 9:05 PM) Protein Total [6.4-8.9 g/dL] 7.2 g/dL (12/01/23 9:05 PM) MCH [27.0-31.0 pg] 21.6 pg *LOW* (12/01/2305 PM) Neutro Absolute [1.4-6.5 K/mcL] 4.4 K/mc L (12/01/2305 PM) Bilirubin Total [0.3-1.0 mg/dL] 0.4 mg/d L (12/01/23:05 PM) Hgb [14.0-18.0 g/dL] 9.6 g/dL *LOW* (12/01/23 PM) Alk Phos [34-104 IntlUnit/L] 103 IntlUni t/L (12/01/23:05 PM) MPV [7.4-10.4 fL] 8.7 fL (12/01/23:05 PM) Teardrop Cells 1+ *ABN* (12/01/2305 PM) Polychrom 1+ *ABN* (12/01/23:05 PM) Platelets [130-400 K/mcL] 353 K/mcL (12/01/23:05 PM) CO2 [21-31 mmol/L] 22 mmol/L (12/01/2305 PM) Eos Absolute [0.0-0.2 K/mcL] 0.2 K/mcL (12/01/23:05 PM) Chloride Level [98-107 mmol/L] 111 mmol/ L *HI* (12/01/23 PM) RDW-CV [11.5-14.5 %] 23.3 % *HI* (12/01/2305 PM) A/G Ratio [1.0-2.5 g/dL] 1.1 g/dL (12/01/2305 PM) BUN/Creat Ratio [8.0-20.0] 19.6 (12/01/23:05 PM) Globulin [2.3-3.5 g/dL] 3.5 g/dL (12/01/2305 PM) Slide Review Morph Only (12/01/23 9:05 PM) Creatinine Level [0.70-1.30 mg/dL] 2.70 mg/dL *HI* (12/01/23 9:05 PM) Plt Estimation Normal (12/01/23:05 PM) Anion Gap [3.0-12.0] 7.0 (12/01/23 9:05 PM) Eos, Auto [0.00-3.00 %] 2.20 % (12/01/23 9:05 PM) eGFR CKD-EPI [>=60 mL/min/1.73 m2] 29 mL /min/1.73 m2 *LOW* (12/01/23 9:05 PM) Vital Signs Most recent to oldest [Reference Range]: 1 2 3 Heart Rate Monitored [60-100 bpm] 64 bpm (12/01/23 11:31 PM) 64 bpm (12/01/23 11:29 PM) 68 bpm (12/01/23 10:59 PM) Respiratory Rate [12-24 br/min] 18 br/min (12/01/23:20 PM) Blood Pressure [90-120/60-80 mmHg] 177/79mmHg *HI* (12/01/23:20 PM) Mean Arterial Pressure, Cuff [65-140 mmHg] 112 mmHg (12/01/23:20 PM) Weight 122.47 kg (12/01/23 9:20 PM) Weight Dosing 122.470 kg (12/01/23 9:30 PM) Height 177.8 cm (12/01/23:20 PM) Body Mass Index 38.74 kg/m2 (12/01/23 9:20 PM) Social History Social History Type Response Tobacco Never tobacco user T obacco Use:. Sex Sex Representation Male (finding) Hospital Discharge Instructions Patient Education 12/01/2023 22:40:01 Managing Anxiety, Adult Managing Anxiety, Adult After being diagnosed with anxiety, you may be relieved to know why you have felt or behaved a certain way. You may also feel overwhelmed about the treatment ahead and what it will mean for your life. With care and support, you can manage this condition. How to manage lifestyle changes Managing stress and anxiety Stress is your body's reaction to life changes and events, both good and bad. Most stress will lastjust a few hours, but stress can be ongoing and can lead to more than just stress. Although stress can play a major role in anxiety, it is not the same as anxiety. Stress is usually caused by something external, such as a deadline, test, or competition. Stress normally passes after the triggering ev ent has ended. Anxiety is caused by something internal, such as imagining a terrible outcome or worrying that something will go wrong that will devastate you. Anxiety often does not go away even after the triggering event is over, and it can become long-term (chronic) worry. It is important to understand the differences between stress and anxiety and to manage your stress effectively so that it does not lead vimal anxious response. Talk with your health care provider or a counselor to learn more about reducing anxiety and stress.He or she may suggest tension reduction techniques, such as: ??? Music therapy. Spend time creating or listening to music that you enjoy and that inspires you. ??? Mindfulness-based meditation. Practice being aware of your normal breaths while not trying to control your breathing. It can be done while sitting or walking. ??? Centering prayer. This involves focusing on a word, phrase, or sacred image that means something to you and brings you peace. ??? Deep breathing. To do this, expand your stomach and inhale slowly through your nose. Hold your breath for 3???5 seconds. Then exhale slowly, letting your stomach muscles relax. ??? Self-talk. Learn to notice and identify thought patterns that lead to anxiety reactions and change those patterns to thoughts that feel peaceful. ??? Muscle relaxation. Taking time to tense muscles and then relax them. Choose a tension reduction technique that fits your lifestyle and personality. These techniques take time and practice. Set aside 5???15 minutes a day to do them. Therapists can offer counseling and training in these techniques. The training to help with anxiety may be covered by some insurance plans. Other things you can do to manage stress and anxiety include: ??? Keeping a stress diary. This can help you learn what triggers your reaction and then learn waysto manage your response. ??? Thinking about how you react to certain situations. You may not be able to control everything, but you can control your response. ??? Making time for activities that help you relax and not feeling guilty about spending your time in this way. ??? Doing visual imagery. This involves imagining or creating mental pictures to help you relax. ??? Practicing yoga. Through yoga poses, you can lower tension and promote relaxation. Medicines Medicines can help ease symptoms. Medicines for anxiety include: ??? Antidepressant medicines. These are usually prescribed for long-term daily control. ??? Anti-anxiety medicines. These may be added in severe cases, especially when panic attacks occur. Medicines will be prescribed by a health care provider. When used together, medicines, psychotherapy, and tension reduction techniques may be the most effective treatment. Relationships Relationships can play a big part in helping you recover. Try to spend more time connecting with trusted friends and family members. ??? Consider going to couples counseling if you have a partner, taking family education classes, orgoing to family therapy. ??? Therapy can help you and others better understand your condition. How to recognize changes in your anxiety Everyone responds differently to treatment for anxiety. Recovery from anxiety happens when symptomsdecrease and stop interfering with your daily activities at home or work. This may mean that you will start to: ??? Have better concentration and focus. Worry will interfere less in your daily thinking. ??? Sleep better. ??? Be less irritable. ??? Have more energy. ??? Have improved memory. It is also important to recognize when your condition is getting worse. Contact your health care provider if your symptoms interfere with home or work and you feel like your condition is not improving. Follow these instructions at home: Activity ??? Exercise. Adults should do the following: ??? Exercise for at least 150 minutes each week. The exercise should increase your heart rate and make you sweat (moderate-intensity exercise). ??? Strengthening exercises at least twice a week. ??? Get the right amount and quality of sleep. Most adults need 7???9 hours of sleep each night. Lifestyle ??? Eat a healthy diet that includes plenty of vegetables, fruits, whole grains, low-fat dairy products, and lean protein. ??? Do not eat a lot of foods that are high in fats, added sugars, or salt (sodium). ??? Make choices that simplify your life. ??? Do not use any products that contain nicotine or tobacco. These products include cigarettes, chewing tobacco, and vaping devices, such as e-cigarettes. If you need help quitting, ask your health care provider. ??? Avoid caffeine, alcohol, and certain wxat-lcn-hugtvzg cold medicines. These may make you feel worse. Ask your pharmacist which medicines to avoid. General instructions ??? Take bfdf-hwd-kpbyoez and prescription medicines only as told by your health care provider. ??? Keep all follow-up visits. This is important. Where to find support You can get help and support from these sources: ??? Self-help groups. ??? Online and community organizations. ??? A trusted spiritual leader. ??? Couples counseling. ??? Family education classes. ??? Family therapy. Where to find more information You may find that joining a support group helps you deal with your anxiety. The following sources can help you locate counselors or support groups near you: ??? Mental Health [place]: www.mentalhealthamerica.net ??? Anxiety and Depression Association of [place] (ADAA): www.adaa.org ??? [place] [employer]ness ([place]): www.paulette.org Contact a health care provider if: ??? You have a hard time staying focused or finishing daily tasks. ??? You spend many hours a day feeling worried about everyday life. ??? You become exhausted by worry. ??? You start to have headaches or frequently feel tense. ??? You develop chronic nausea or diarrhea. Get help right away if: ??? You have a racing heart and shortness of breath. ??? You have thoughts of hurting yourself or others. If you ever feel like you may hurt yourself or others, or have thoughts about taking your own life,get help right away. Go to your nearest emergency department or: ??? Call your local emergency services (911 in the [place] ??? Call a suicide crisis helpline, such as the National Suicide Prevention Lifeline at or 100 in the [place] This is open 24 hours a day in the [place] ??? Text the Crisis Text Line at 084084 (in the [place] Summary ??? Taking steps to learn and use tension reduction techniques can help calm you and help prevent triggering an anxiety reaction. ??? When used together, medicines, psychotherapy, and tension reduction techniques may be the most effective treatment. ??? Family, friends, and partners can play a big part in supporting you. This information is not intended to replace advice given to you by your health care provider. Make sure you discuss any questions you have with your health care provider. Document Revised: 09/01/2021 Document Reviewed: 05/30/2021 [employer] Patient Education ?? 2022 [employer]. 12/01/2023 22:40:00 Insomnia Insomnia Insomnia is a sleep disorder that makes it difficult to fall asleep or stay asleep. Insomnia can cause fatigue, low energy, difficulty concentrating, mood swings, and poor performance at work or school. There are three different ways to classify insomnia: ??? Difficulty falling asleep. ??? Difficulty staying asleep. ??? Waking up too early in the morning. Any type of insomnia can be long-term (chronic) or short-term (acute). Both are common. Short-term insomnia usually lasts for 3 months or less. Chronic insomnia occurs at least three times a week forlonger than 3 months. What are the causes? Insomnia may be caused by another condition, situation, or substance, such as: ??? Having certain mental health conditions, such as anxiety and depression. ??? Using caffeine, alcohol, tobacco, or drugs. ??? Having gastrointestinal conditions, such as gastroesophageal reflux disease (GERD). ??? Having certain medical conditions. These include: ??? Asthma. ??? Alzheimer's disease. ??? Stroke. ??? Chronic pain. ??? An overactive thyroid gland (hyperthyroidism). ??? Other sleep disorders, such as restless legs syndrome and sleep apnea. ??? Menopause. Sometimes, the cause of insomnia may not be known. What increases the risk? Risk factors for insomnia include: ??? Gender. Females are affected more often than males. ??? Age. Insomnia is more common as people get older. ??? Stress and certain medical and mental health conditions. ??? Lack of exercise. ??? Having an irregular work schedule. This may include working night shifts and traveling between different time zones. What are the signs or symptoms? If you have insomnia, the main symptom is having trouble falling asleep or having trouble staying asleep. This may lead to other symptoms, such as: ??? Feeling tired or having low energy. ??? Feeling nervous about going to sleep. ??? Not feeling rested in the morning. ??? Having trouble concentrating. ??? Feeling irritable, anxious, or depressed. How is this diagnosed? This condition may be diagnosed based on: ??? Your symptoms and medical history. Your health care provider may ask about: ??? Your sleep habits. ??? Any medical conditions you have. ??? Your mental health. ??? A physical exam. How is this treated? Treatment for insomnia depends on the cause. Treatment may focus on treating an underlying condition that is causing the insomnia. Treatment may also include: ??? Medicines to help you sleep. ??? Counseling or therapy. ??? Lifestyle adjustments to help you sleep better. Follow these instructions at home: Eating and drinking ??? Limit or avoid alcohol, caffeinated beverages, and products that contain nicotine and tobacco, especially close to bedtime. These can disrupt your sleep. ??? Do not eat a large meal or eat spicy foods right before bedtime. This can lead to digestive discomfort that can make it hard for you to sleep. Sleep habits ??? Keep a sleep diary to help you and your health care provider figure out what could be causing your insomnia. Write down: ??? When you sleep. ??? When you wake up during the night. ??? How well you sleep and how rested you feel the next day. ??? Any side effects of medicines you are taking. ??? What you eat and drink. ??? Make your bedroom a dark, comfortable place where it is easy to fall asleep. ??? Put up shades or blackout curtains to block light from outside. ??? Use a white noise machine to block noise. ??? Keep the temperature cool. ??? Limit screen use before bedtime. This includes: ??? Not watching TV. ??? Not using your smartphone, tablet, or computer. ??? Stick to a routine that includes going to bed and waking up at the same times every day and night. This can help you fall asleep faster. Consider making a quiet activity, such as reading, part ofyour nighttime routine. ??? Try to avoid taking naps during the day so that you sleep better at night. ??? Get out of bed if you are still awake after 15 minutes of trying to sleep. Keep the lights down, but try reading or doing a quiet activity. When you feel sleepy, go back to bed. General instructions ??? Take saij-qtr-xhxnjjb and prescription medicines only as told by your health care provider. ??? Exercise regularly as told by your health care provider. However, avoid exercising in the hoursright before bedtime. ??? Use relaxation techniques to manage stress. Ask your health care provider to suggest some techniques that may work well for you. These may include: ??? Breathing exercises. ??? Routines to release muscle tension. ??? Visualizing peaceful scenes. ??? Make sure that you drive carefully. Do not drive if you feel very sleepy. ??? Keep all follow-up visits. This is important. Contact a health care provider if: ??? You are tired throughout the day. ??? You have trouble in your daily routine due to sleepiness. ??? You continue to have sleep problems, or your sleep problems get worse. Get help right away if: ??? You have thoughts about hurting yourself or someone else. Get help right away if you feel like you may hurt yourself or others, or have thoughts about takingyour own life. Go to your nearest emergency room or: ??? Call 911. ??? Call the National Suicide Prevention Lifeline at or 176. This is open 24 hours aday. ??? Text the Crisis Text Line at 967627. Summary ??? Insomnia is a sleep disorder that makes it difficult to fall asleep or stay asleep. ??? Insomnia can be long-term (chronic) or short-term (acute). ??? Treatment for insomnia depends on the cause. Treatment may focus on treating an underlying condition that is causing the insomnia. ??? Keep a sleep diary to help you and your health care provider figure out what could be causing your insomnia. This information is not intended to replace advice given to you by your health care provider. Make sure you discuss any questions you have with your health care provider. Document Revised: 01/17/2022 Document Reviewed: 01/17/2022 [employer] Patient Education ?? 2022 [employer] Emergency department Discharge instructions * Julio Fan MD: PERFORM Event Display: ED Discharge Information Authored Date: [id number] SHOSHANA SALGADO :1975 Age:47 years Sex:Male Visit Date:12/01/2023 Primary Care Physician: MARIBETH BARKER MD Discharge Instructions We would like to thank you for allowing us to assist you with your healthcare needs. The following includes patient education materials and information regarding your injury/illness. Diagnosis from Today's Visit Insomnia Anxiety Discharge Vitals Heart Rate??(Monitored) 65 Respiratory Rate?? 18 Blood Pressure?? 177/79?? SpO2?? 98% Height?? 70.00 in (177.8 cm) Weight?? 270.05 lb (122.47 kg) BMI?? 38.74 Allergies Diphendramine HCL??(Hyperactivity level) melatonin??(Restless legs syndrome) What to Do Next Instructions from Your Care Team Your potassium tonight was 5.0, your creatinine??was elevated at 2.7 (but this??is similar to your prior values).?? We gave you 1??clonazepam tablet for home use tonight for sleep; I wrote your prescription for a medication called temazepam??(Restoril).?? You can take 1 tablet before bed as needed for sleep.?? You should contact your doctor Monday morning about continuing to use Restoril.?? I am starting you at the lowest dose which is 7.5 mg.?? It may need to be increased; but you should not do this without consultation with your doctor. ??I strongly recommend you get a workup for sleep apnea.?? Contact your doctor Monday to make sure this occurs. ?? Do not combine sleep medications with alcohol??or other pain medications. ?? Return to emergency if anything acutely worsens including??chest pain, trouble breathing,??passing out, any neurologic problems??(weakness in arm or leg) etc. You were treated today on an emergency [...] Much When Why Instructions Next Dose New temazepam (temazepam 7.5 mg oral capsule) 1 Capsules Oral (given by mouth) Every night at bedtime as needed for as needed for sleep [facility] Unchanged amiodarone (amiodarone 200 mg oral tablet) [...] 8 HOURS NEEDED FOR PAIN ?? Unchanged sevelamer (sevelamer carbonate 800 mg oral tablet) TAKE 1 TABLET BY MOUTH THREE TIMES DAILY WITH MEALS ?? Unchanged torsemide (torsemide 20 mg oral tablet) 1 tab Oral (given by mouth) Every day Pharmacy Information [id number]: [address] [place], [place] [phone] Education Materials Managing Anxiety, Adult After being diagnosed with anxiety, you may be relieved to know why you have felt or behaved a certain way. You may also feel overwhelmed about the treatment ahead and what it will mean for your life. With care and support, you can manage this condition. How to manage lifestyle changes Managing stress and anxiety Stress is your body's reaction to life changes and events, both good and bad. Most stress will lastjust a few hours, but stress can be ongoing and can lead to more than just stress. Although stress can play a major role in anxiety, it is not the same as anxiety. Stress is usually caused by something external, such as a deadline, test, or competition. Stress normally passes after the triggering ev ent has ended. Anxiety is caused by something internal, such as imagining a terrible outcome or worrying that something will go wrong that will devastate you. Anxiety often does not go away even after the triggering event is over, and it can become long-term (chronic) worry. It is important to understand the differences between stress and anxiety and to manage your stress effectively so that it does not lead vimal anxious response. Talk with your health care provider or a counselor to learn more about reducing anxiety and stress.He or she may suggest tension reduction techniques, such as: ? Music therapy. Spend time creating or listening to music that you enjoy and that inspires you. ? Mindfulness-based meditation. Practice being aware of your normal breaths while not trying to control your breathing. It can be done while sitting or walking. ? Centering prayer. This involves focusing on a word, phrase, or sacred image that means something toyou and brings you peace. ? Deep breathing. To do this, expand your stomach and inhale slowly through your nose. Hold your breath for 3???5 seconds. Then exhale slowly, letting your stomach muscles relax. ? Self-talk. Learn to notice and identify thought patterns that lead to anxiety reactions and change those patterns to thoughts that feel peaceful. ? Muscle relaxation. Taking time to tense muscles and then relax them. Choose a tension reduction technique that fits your lifestyle and personality. These techniques take time and practice. Set aside 5???15 minutes a day to do them. Therapists can offer counseling and training in these techniques. The training to help with anxiety may be covered by some insurance plans. Other things you can do to manage stress and anxiety include: ? Keeping a stress diary. This can help you learn what triggers your reaction and then learn ways to manage your response. ? Thinking about how you react to certain situations. You may not be able to control everything, but you can control your response. ? Making time for activities that help you relax and not feeling guilty about spending your time in this way. ? Doing visual imagery. This involves imagining or creating mental pictures to help you relax. ? Practicing yoga. Through yoga poses, you can lower tension and promote relaxation. Medicines Medicines can help ease symptoms. Medicines for anxiety include: ? Antidepressant medicines. These are usually prescribed for long-term daily control. ? Anti-anxiety medicines. These may be added in severe cases, especially when panic attacks occur. Medicines will be prescribed by a health care provider. When used together, medicines, psychotherapy, and tension reduction techniques may be the most effective treatment. Relationships Relationships can play a big part in helping you recover. Try to spend more time connecting with trusted friends and family members. ? Consider going to couples counseling if you have a partner, taking family education classes, or going to family therapy. ? Therapy can help you and others better understand your condition. How to recognize changes in your anxiety Everyone responds differently to treatment for anxiety. Recovery from anxiety happens when symptomsdecrease and stop interfering with your daily activities at home or work. This may mean that you will start to: ? Have better concentration and focus. Worry will interfere less in your daily thinking. ? Sleep better. ? Be less irritable. ? Have more energy. ? Have improved memory. It is also important to recognize when your condition is getting worse. Contact your health care provider if your symptoms interfere with home or work and you feel like your condition is not improving. Follow these instructions at home: Activity ? Exercise. Adults should do the following: ? Exercise for at least 150 minutes each week. The exercise should increase your heart rate and make you sweat (moderate-intensity exercise). ? Strengthening exercises at least twice a week. ? Get the right amount and quality of sleep. Most adults need 7???9 hours of sleep each night. Lifestyle ? Eat a healthy diet that includes plenty of vegetables, fruits, whole grains, low-fat dairy products, and lean protein. ? Do not eat a lot of foods that are high in fats, added sugars, or salt (sodium). ? Make choices that simplify your life. ? Do not use any products that contain nicotine or tobacco. These products include cigarettes, chewing tobacco, and vaping devices, such as e-cigarettes. If you need help quitting, ask your health careprovider. ? Avoid caffeine, alcohol, and certain apjd-cdq-auqzdhf cold medicines. These may make you feel worse. Ask your pharmacist which medicines to avoid. General instructions ? Take ekns-cpz-cxdkthi and prescription medicines only as told by your health care provider. ? Keep all follow-up visits. This is important. Where to find support You can get help and support from these sources: ? Self-help groups. ? Online and community organizations. ? A trusted spiritual leader. ? Couples counseling. ? Family education classes. ? Family therapy. Where to find more information You may find that joining a support group helps you deal with your anxiety. The following sources can help you locate counselors or support groups near you: ? Mental Health [place]: www.mentalhealth[place].net ? Anxiety and [employer] [place] (ADAA): www.adaa.org ? [employer] [place] [employer] ([place]): www.paulette.org Contact a health care provider if: ? You have a hard time staying focused or finishing daily tasks. ? You spend many hours a day feeling worried about everyday life. ? You become exhausted by worry. ? You start to have headaches or frequently feel tense. ? You develop chronic nausea or diarrhea. Get help right away if: ? You have a racing heart and shortness of breath. ? You have thoughts of hurting yourself or others. If you ever feel like you may hurt yourself or others, or have thoughts about taking your own life,get help right away. Go to your nearest emergency department or: ? Call your local emergency services (911 in the [place] ? Call a suicide crisis helpline, such as the National Suicide Prevention Lifeline at or 359 in the [place] This is open 24 hours a day in the [place] ? Text the Crisis Text Line at 935367 (in the [place] Summary ? Taking steps to learn and use tension reduction techniques can help calm you and help prevent triggering an anxiety reaction. ? When used together, medicines, psychotherapy, and tension reduction techniques may be the most effective treatment. ? Family, friends, and partners can play a big part in supporting you. This information is not intended to replace advice given to you by your health care provider. Make sure you discuss any questions you have with your health care provider. Document Revised: 09/01/2021 Document Reviewed: 05/30/2021 [employer] Patient Education ?? 2022 [employer] Insomnia Insomnia is a sleep disorder that makes it difficult to fall asleep or stay asleep. Insomnia can cause fatigue, low energy, difficulty concentrating, mood swings, and poor performance at work or school. There are three different ways to classify insomnia: ? Difficulty falling asleep. ? Difficulty staying asleep. ? Waking up too early in the morning. Any type of insomnia can be long-term (chronic) or short-term (acute). Both are common. Short-term insomnia usually lasts for 3 months or less. Chronic insomnia occurs at least three times a week forlonger than 3 months. What are the causes? Insomnia may be caused by another condition, situation, or substance, such as: ? Having certain mental health conditions, such as anxiety and depression. ? Using caffeine, alcohol, tobacco, or drugs. ? Having gastrointestinal conditions, such as gastroesophageal reflux disease (GERD). ? Having certain medical conditions. These include: ? Asthma. ? Alzheimer's disease. ? Stroke. ? Chronic pain. ? An overactive thyroid gland (hyperthyroidism). ? Other sleep disorders, such as restless legs syndrome and sleep apnea. ? Menopause. Sometimes, the cause of insomnia may not be known. What increases the risk? Risk factors for insomnia include: ? Gender. Females are affected more often than males. ? Age. Insomnia is more common as people get older. ? Stress and certain medical and mental health conditions. ? Lack of exercise. ? Having an irregular work schedule. This may include working night shifts and traveling between different time zones. What are the signs or symptoms? If you have insomnia, the main symptom is having trouble falling asleep or having trouble staying asleep. This may lead to other symptoms, such as: ? Feeling tired or having low energy. ? Feeling nervous about going to sleep. ? Not feeling rested in the morning. ? Having trouble concentrating. ? Feeling irritable, anxious, or depressed. How is this diagnosed? This condition may be diagnosed based on: ? Your symptoms and medical history. Your health care provider may ask about: ? Your sleep habits. ? Any medical conditions you have. ? Your mental health. ? A physical exam. How is this treated? Treatment for insomnia depends on the cause. Treatment may focus on treating an underlying condition that is causing the insomnia. Treatment may also include: ? Medicines to help you sleep. ? Counseling or therapy. ? Lifestyle adjustments to help you sleep better. Follow these instructions at home: Eating and drinking ? Limit or avoid alcohol, caffeinated beverages, and products that contain nicotine and tobacco, especially close to bedtime. These can disrupt your sleep. ? Do not eat a large meal or eat spicy foods right before bedtime. This can lead to digestive discomfort that can make it hard for you to sleep. Sleep habits ? Keep a sleep diary to help you and your health care provider figure out what could be causing your insomnia. Write down: ? When you sleep. ? When you wake up during the night. ? How well you sleep and how rested you feel the next day. ? Any side effects of medicines you are taking. ? What you eat and drink. ? Make your bedroom a dark, comfortable place where it is easy to fall asleep. ? Put up shades or blackout curtains to block light from outside. ? Use a white noise machine to block noise. ? Keep the temperature cool. ? Limit screen use before bedtime. This includes: ? Not watching TV. ? Not using your smartphone, tablet, or computer. ? Stick to a routine that includes going to bed and waking up at the same times every day and night. This can help you fall asleep faster. Consider making a quiet activity, such as reading, part of your nighttime routine. ? Try to avoid taking naps during the day so that you sleep better at night. ? Get out of bed if you are still awake after 15 minutes of trying to sleep. Keep the lights down, but try reading or doing a quiet activity. When you feel sleepy, go back to bed. General instructions ? Take bvnr-fhg-kowhtru and prescription medicines only as told by your health care provider. ? Exercise regularly as told by your health care provider. However, avoid exercising in the hours right before bedtime. ? Use relaxation techniques to manage stress. Ask your health care provider to suggest some techniques that may work well for you. These may include: ? Breathing exercises. ? Routines to release muscle tension. ? Visualizing peaceful scenes. ? Make sure that you drive carefully. Do not drive if you feel very sleepy. ? Keep all follow-up visits. This is important. Contact a health care provider if: ? You are tired throughout the day. ? You have trouble in your daily routine due to sleepiness. ? You continue to have sleep problems, or your sleep problems get worse. Get help right away if: ? You have thoughts about hurting yourself or someone else. Get help right away if you feel like you may hurt yourself or others, or have thoughts about takingyour own life. Go to your nearest emergency room or: ? Call 911. ? Call the National Suicide Prevention Lifeline at or 670. This is open 24 hours a day. ? Text the Crisis Text Line at 736333. Summary ? Insomnia is a sleep disorder that makes it difficult to fall asleep or stay asleep. ? Insomnia can be long-term (chronic) or short-term (acute). ? Treatment for insomnia depends on the cause. Treatment may focus on treating an underlying condition that is causing the insomnia. ? Keep a sleep diary to help you and your health care provider figure out what could be causing your insomnia. This information is not intended to replace advice given to you by your health care provider. Make sure you discuss any questions you have with your health care provider. Document Revised: 01/17/2022 Document Reviewed: 01/17/2022 [employer] Patient Education ?? 2022 [employer] Tests Performed Lab Test Name Test Result Date/Time WBC 6.8 K/mcL 12/01/2023 21:05 EDT RBC 4.45 Million/mcL 12/01/2023 21:05 EDT Hgb 9.6 g/dL 12/01/2023 21:05 EDT Hct 31.7 % 12/01/2023 21:05 EDT MCV 71.3 fL 12/01/2023 21:05 EDT MCH 21.6 pg 12/01/2023 21:05 EDT MCHC 30.3 g/dL 12/01/2023 21:05 EDT RDW-CV 23.3 % 12/01/2023 21:05 EDT Platelets 353 K/mcL 12/01/2023 21:05 EDT MPV 8.7 fL 12/01/2023 21:05 EDT Neutro Auto 65.1 % 12/01/2023 21:05 EDT Lymph Auto 21.8 % 12/01/2023 21:05 EDT [place] Auto 9.2 % 12/01/2023 21:05 EDT Eos, Auto 2.20 % 12/01/2023 21:05 EDT Basophil Auto 1.7 % 12/01/2023 21:05 EDT Neutro Absolute 4.4 K/mcL 12/01/2023 21:05 EDT Lymph Absolute 1.5 K/mcL 12/01/2023 21:05 EDT [place] Absolute 0.6 K/mcL 12/01/2023 21:05 EDT Eos Absolute 0.2 K/mcL 12/01/2023 21:05 EDT Baso Absolute 0.1 K/mcL 12/01/2023 21:05 EDT Slide Review Morph Only 12/01/2023 21:05 EDT Sodium Level 140 mmol/L 12/01/2023 21:05 EDT Potassium Level 5.0 mmol/L 12/01/2023 21:05 EDT Chloride Level 111 mmol/L 12/01/2023 21:05 EDT CO2 22 mmol/L 12/01/2023 21:05 EDT Alk Phos 103 IntlUnit/L 12/01/2023 21:05 EDT AST 11 IntlUnit/L 12/01/2023 21:05 EDT ALT 13 IntlUnit/L 12/01/2023 21:05 EDT BUN 53 mg/dL 12/01/2023 21:05 EDT Glucose Level 75 mg/dL 12/01/2023 21:05 EDT Creatinine Level 2.70 mg/dL 12/01/2023 21:05 EDT eGFR CKD-EPI 29 mL/min/1.73 m2 12/01/2023 21:05 EDT Calcium Level 9.1 mg/dL 12/01/2023 21:05 EDT Protein Total 7.2 g/dL 12/01/2023 21:05 EDT Albumin Level 3.7 g/dL 12/01/2023 21:05 EDT Bilirubin Total 0.4 mg/dL 12/01/2023 21:05 EDT Glucose POC 94 12/01/2023 22:19 EDT Patient/Chief Embalmer Signature Patient Name:ANNAPORTILLO SHOSHANA Constantino I have received this information and my questions have been answered. Patient/Chief Embalmer Name: Patient/Chief Embalmer Signature: Relationship to Patient: Witness Name/Signature: Date: Electronically Signed on: 12/01/2023 23:40 EDTSigned by:RMBennie Patient Care team information Care Team Personnel Name: MJ WILLS, MARIBETH Constantino Position: No Access Member Role: Primary Care Physician Address: [address] [place] [phone] Care Team Related Persons Name: GRETTA SALGADO Name: GRETTA SALGADO Name: AARTI SALGADO Name: AARTI SALGADO Insurance Providers Guarantor name: SHOSHANA SALGADO Health Plan Information #: 1 Payer: JO ANN HOLBROOK Member Number: [id number] Policy Number: NA Health Plan Information #: 2 Payer: JO ANN HOLBROOK Member Number: [id number] Policy Number: [id number]
--- OUTSIDE RECORDS SUMMARY | 2024-01-04 13:05 | XMS_ITS | Continuity of Care Document ---
Author Organization [facility] Address [address] [place] [address] Encounter LTTL_[place] FIN NBR [id number] Date(s): 03/11/22 - 03/13/22 [facility] [address] [place] [address]- Encounter Diagnosis Diabetes(Discharge Diagnosis) - 03/11/22 Heart attack(Discharge Diagnosis) - 03/11/22 High blood pressure(Discharge Diagnosis) - 03/11/22 Pancreatitis(Discharge Diagnosis) - 03/11/22 Cholelithiases(Discharge Diagnosis) - 03/11/22 Fluid depletion(Discharge Diagnosis) - 03/11/22 Discharge Disposition: Home or Self Care Attending Physician: Daniel Mills MD Admitting Physician: Daniel Mills MD Allergies, Adverse Reactions, Alerts Substance Reaction Severity Status melatonin Restless legs syndrome Unknown Activ e Diphendramine HCL Hyperactivity level Unknown Act nomi Assessment and Plan Diagnostic Tests Pending * Hgb A1c 03/12/22 Functional Status 03/13/22 Breakfast Percent 100 03/12/22 Activity Status ADL Up to chair 03/12/22 Personal Care Provided Other: offered, p t stated he might shower later, will let us know ifhe needs any supplies. 03/11/22 Lunch Percent 0 03/11/22 Living Environment No Living Environmen t Information Available Lives In Apartment Living Situation Home independently Home Barriers None Number of Stairs Outside 25 Outside Stairs Rail Bilateral 03/11/22 Family Member Travel History No recent t ravel Recent Travel History No recent travel Other exposure to Infectious Disease Non e Medications aspirin 81 mg oral tablet, chewable 81 [...] every evening Start Date: 03/11/22 Status: Ordered ibuprofen 200 mg oral tablet [...] every evening Start Date: 03/11/22 Status: Ordered Tylenol Extra Strength 500 mg oral tablet 1,000 mg = 2 tab, Oral, every 6 hr, PRN as needed for pain Start Date: 03/11/22 Status: Ordered Mental Status 03/11/22 Eye Opening Response [place] Spontaneous ly Best Verbal Response [place] Oriented Best Motor Response [place] Obeys comman ds [place] Coma Score 15 Problem List Condition Confirmation Course Effective Dates Status Health St atus Informant Diabetes Confirmed Active High blood pressure Confirmed Active Heart attack Confirmed 2019 Active Procedures Procedure Date Related Diagnosis Body Site Status Stent placement Completed Results Laboratory List Name Date Glucose POCT 03/13/22 Glucose POCT 03/13/22 Basic Metabolic Panel 03/13/22 Lipase Level 03/13/22 Magnesium Level 03/13/22 Lipase Level 03/13/22 Magnesium Level 03/13/22 CBC w/ Diff 03/13/22 Automated Diff 03/13/22 Albumin Level 03/12/22 Basic Metabolic Panel (BMP) 03/12/22 Magnesium Level 03/12/22 Glucose POCT 03/12/22 Automated Diff 03/12/22 Lipid Panel 03/12/22 Basic Metabolic Panel (BMP) 03/12/22 Lipase Level 03/12/22 CBC w/ Diff 03/12/22 CBC w/ Diff 03/11/22 Automated Diff 03/11/22 SARS-CoV-2 (COVID-19) PCR (GeneXpert) .Morphology (LTTL) 03/11/22 Comprehensive Metabolic Panel (CMP) 03/11 Most recent to oldest [Reference Range]: 1 2 3 WBC [4.8-10.8 K/mcL] 10.0 K/mcL (03/13/22 5:42 AM) 11.4 K/mcL *HI* (03/12/22 4:00 AM) 12.0 K/mcL *HI* (03/11/22 11:15 AM) RBC [4.20-6.10 Million/mcL] 4.68 Million /mcL (03/13/22 5:42 AM) 4.60 Million/mcL (03/12/22 4:00 AM) 4.79 Million/mcL (03/11/22 11:15 AM) Neutro Auto [42.2-75.2 %] 72.7 % (03/13/22 5:42 AM) 70.1 % (03/12/22 4:00 AM) 69.7 % (03/11/22 11:15 AM) Lymph Auto [20.5-51.1 %] 13.8 % *LOW* (03/13/22 5:42 AM) 16.2 % *LOW* (03/12/22 4:00 AM) 16.6 % *LOW* (03/11/22 11:15 AM) [place] Auto [1.7-9.3 %] 6.3 % (03/13/22 5:42 AM) 6.1 % (03/12/22 4:00 AM) 5.9 % (03/11/22 11:15 AM) Basophil Auto [0.0-0.8 %] 0.5 % (03/13/22 5:42 AM) 0.5 % (03/12/22 4:00 AM) 0.6 % (03/11/22 11:15 AM) BUN [8-26 mg/dL] 12 mg/dL (03/13/22 5:45 AM) 13 mg/dL (03/12/22 10:42 PM) 16 mg/dL (03/12/22 5:21 AM) Glucose POC 278 *NA* (03/13/22 11:52 AM) 203 *NA* (03/13/22 7:23 AM) 254 *NA* (03/12/22 8:24 PM) Cholesterol Total [129-209 mg/dL] 128 mg/dL *LOW* (03/12/22 5:30 AM) LDL 56.2 *NA* (03/12/22 5:30 AM) Glucose Level [74-106 mg/dL] 201 mg/dL *HI* (03/13/22 5:45 AM) 198 mg/dL *HI* (03/12/22 10:42 PM) 213 mg/dL *HI* (03/12/22 5:21 AM) Potassium Level [3.5-5.1 mmol/L] 4.5 mmol/L (03/13/22 5:45 AM) 4.2 mmol/L (03/12/22 10:42 PM) 4.6 mmol/L (03/12/22 5:21 AM) Baso Absolute [0.0-0.2 K/mcL] 0.0 K/mcL (03/13/22 5:42 AM) 0.1 K/mcL (03/12/22 4:00 AM) 0.1 K/mcL (03/11/22 11:15 AM) MCV [80.0-99.0 fL] 68.4 fL *LOW* (03/13/22 5:42 AM) 68.0 fL *LOW* (03/12/22 4:00 AM) 68.1 fL 1 *LOW* (03/11/22 11:15 AM) RBC Morph [Normal] Abnormal *ABN* (03/11/22 1:45 AM) HDL [40-80 mg/dL] 22 mg/dL *LOW* (03/12/22 5:30 AM) AST [15-41 IntlUnit/L] 17 IntlUnit/L (03/11/22 1:45 AM) ALT [17-63 IntlUnit/L] 19 IntlUnit/L (03/11/22 1:45 AM) MCHC [32.0-36.0 g/dL] 30.0 g/dL *LOW* (03/13/22 5:42 AM) 30.0 g/dL *LOW* (03/12/22 4:00 AM) 30.1 g/dL 2 *LOW* (03/11/22 11:15 AM) Osmolality [275-295 mOsm/kg] 279 mOsm/kg (03/13/22 5:45 AM) 278 mOsm/kg (03/12/22 10:42 PM) 280 mOsm/kg (03/12/22 5:21 AM) Sodium Level [134-143 mmol/L] 137 mmol/L (03/13/22 5:45 AM) 136 mmol/L (03/12/22 10:42 PM) 136 mmol/L (03/12/22 5:21 AM) Chol/HDL 5.8 *NA* (03/12/22 5:30 AM) Lymph Absolute [1.2-3.4 K/mcL] 1.4 K/mcL (03/13/22 5:42 AM) 1.8 K/mcL (03/12/22 4:00 AM) 2.0 K/mcL (03/11/22 11:15 AM) Hct [37.0-52.0 %] 32.0 % *LOW* (03/13/22 5:42 AM) 31.3 % *LOW* (03/12/22 4:00 AM) 32.6 % *LOW* (03/11/22 11:15 AM) Microcyte 3+ *ABN* (03/11/22 1:45 AM) Lipase Level [18-51 unit/L] 42 unit/L (03/13/22 5:45 AM) 57 unit/L *HI* (03/13/22 5:45 AM) 62 unit/L *HI* (03/12/22 5:21 AM) Hypochromia 2+ *ABN* (03/11/22 1:45 AM) Triglycerides [10-150 mg/dL] 250 mg/dL *HI* (03/12/22 5:30 AM) Calcium Level [8.9-10.3 mg/dL] 9.1 mg/dL (03/13/22 5:45 AM) 9.0 mg/dL (03/12/22 10:42 PM) 8.7 mg/dL *LOW* (03/12/22 5:21 AM) [place] Absolute [0.1-0.6 K/mcL] 0.6 K/mcL (03/13/22 5:42 AM) 0.7 K/mcL *HI* (03/12/22 4:00 AM) 0.7 K/mcL *HI* (03/11/22 11:15 AM) Albumin Level [3.5-5.0 g/dL] 2.9 g/dL *LOW* (03/12/22 10:47 PM) 3.3 g/dL *LOW* (03/11/22 1:45 AM) Protein Total [6.5-8.1 g/dL] 7.3 g/dL (03/11/22 1:45 AM) MCH [27.0-31.0 pg] 20.5 pg *LOW* (03/13/22 5:42 AM) 20.4 pg *LOW* (03/12/22 4:00 AM) 20.5 pg *LOW* (03/11/22 11:15 AM) Magnesium Level [1.8-2.5 mg/dL] 1.4 mg/dL *LOW* (03/13/22 5:45 AM) 1.8 mg/dL (03/13/22 5:45 AM) 1.6 mg/dL *LOW* (03/12/22 10:42 PM) Neutro Absolute [1.4-6.5 K/mcL] 7.3 K/mcL *HI* (03/13/22 5:42 AM) 8.0 K/mcL *HI* (03/12/22 4:00 AM) 8.4 K/mcL *HI* (03/11/22 11:15 AM) Bilirubin Total [0.2-1.2 mg/dL] 0.8 mg/dL (03/11/22 1:45 AM) Hgb [12.0-18.0 g/dL] 9.6 g/dL *LOW* (03/13/22 5:42 AM) 9.4 g/dL *LOW* (03/12/22 4:00 AM) 9.8 g/dL *LOW* (03/11/22 11:15 AM) Alk Phos [38-130 IntlUnit/L] 87 IntlUnit /L (03/11/22 1:45 AM) MPV [7.4-10.4 fL] 10.6 fL *HI* (03/13/22 5:42 AM) 11.1 fL *HI* (03/12/22 4:00 AM) 10.9 fL *HI* (03/11/22 11:15 AM) Platelets [130-400 K/mcL] 277 K/mcL (03/13/22 5:42 AM) 267 K/mcL (03/12/22 4:00 AM) 278 K/mcL (03/11/22 11:15 AM) CO2 [22-32 mmol/L] 30 mmol/L (03/13/22 5:45 AM) 30 mmol/L (03/12/22 10:42 PM) 26 mmol/L (03/12/22 5:21 AM) Eos Absolute [0.0-0.2 K/mcL] 0.6 K/mcL *HI* (03/13/22 5:42 AM) 0.8 K/mcL *HI* (03/12/22 4:00 AM) 0.8 K/mcL *HI* (03/11/22 11:15 AM) Chloride Level [98-111 mmol/L] 101 mmol/L (03/13/22 5:45 AM) 101 mmol/L (03/12/22 10:42 PM) 103 mmol/L (03/12/22 5:21 AM) RDW-CV [11.5-14.5 %] 16.8 % *HI* (03/13/22 5:42 AM) 17.2 % *HI* (03/12/22 4:00 AM) 17.6 % 3 *HI* (03/11/22 11:15 AM) A/G Ratio 0.8 *NA* (03/11/22 1:45 AM) BUN/Creat Ratio [8.0-20.0] 9.6 (03/13/22 5:45 AM) 10.6 (03/12/22 10:42 PM) 12.9 (03/12/22 5:21 AM) Globulin 4.0 *NA* (03/11/22 1:45 AM) Imm Gran Absolute 0.03 *NA* (03/13/22 5:42 AM) 0.03 *NA* (03/12/22 4:00 AM) 0.03 *NA* (03/11/22 11:15 AM) Imm Gran Auto [0.0-0.5 %] 0.3 % (03/13/22 5:42 AM) 0.3 % (03/12/22 4:00 AM) 0.3 % (03/11/22 11:15 AM) Plt Large Moderate *ABN* (03/11/22 1:45 AM) Anisocyte 1+ (03/11/22 1:45 AM) SARS-CoV-2 (COVID-19) PCR (GeneXpert) [Negative] Negative (03/11/22 7:34 AM) Creatinine Level [0.61-1.24 mg/dL] 1.25 mg/dL *HI* (03/13/22 5:45 AM) 1.23 mg/dL (03/12/22 10:42 PM) 1.24 mg/dL (03/12/22 5:21 AM) Plt Estimation Normal (03/11/22 1:45 AM) Employed in healthcare? No *NA* (03/11/22 7:34 AM) Symptomatic as defined by CDC? Unknown *NA* (03/11/22 7:34 AM) Hospitalized due to COVID-19? No *NA* (03/11/22 7:34 AM) In ICU? No *NA* (03/11/22 7:34 AM) Group care resident? No *NA* (03/11/22 7:34 AM) status? Not *NA* (03/11/22 7:34 AM) Anion Gap [3.0-12.0] 6.0 (03/13/22 5:45 AM) 5.0 (03/12/22 10:42 PM) 7.0 (03/12/22 5:21 AM) Eos, Auto [0.00-3.00 %] 6.40 % *HI* (03/13/22 5:42 AM) 6.80 % *HI* (03/12/22 4:00 AM) 6.90 % *HI* (03/11/22 11:15 AM) eGFR CKD-EPI [>=60 mL/min/1.73 m2] 73 mL/min/1.73 m2 (03/13/22 5:45 AM) 74 mL/min/1.73 m2 (03/12/22 10:42 PM) 74 mL/min/1.73 m2 (03/12/22 5:21 AM) 1Result Comment: consistent with previous 2Result Comment: consistent with previous 3Result Comment: consistent with previous Radiology Reports * Exam Date Time Procedure Performing Provider Status 03/11/22 8:06 AM US Abdomen Limited DomainUserGlenn ed; Auth (Verified) Notes: (US Abdomen Limited) Reason For Exam: right upper abdominal pain US Abdomen Limited EXAM DESCRIPTION: US Abdomen Limited 03/11/2022 INDICATION: RIGHT UPPER ABDOMINAL PAIN TECHNIQUE: Grayscale and color Doppler ultrasound examination of the right upper quadrant region of the abdomen. Examination is limited by abdominal pain elicited by transducer placement. This limited image acquisition. COMPARISON: CT abdomen/pelvis from 03/11/2022, 0246 hours FINDINGS: Liver measurement not well obtained secondary to study limitations described above. Visualized portions of the liver demonstrate diffusely increased echogenicity suggesting hepatic steatosis. No focal hepatic lesion identified in visualized portions of the liver. The main portal vein was not well assessed. No ascites in the right upper quadrant The pancreas is obscured by overlying bowel gas Echogenic, shadowing gallstones in the gallbladder. Gallbladder wall is borderline thickened measuring 3 mm. Small amount of pericholecystic fluid is suspected. No biliary dilatation with common bile duct diameter of 3 mm Positive sonographic Dickinson sign. Survey of the right kidney demonstrates no hydronephrosis. No right perinephric fluid collection. IMPRESSION: Mildly limited examination as described above Cholelithiasis. Mild gallbladder wall thickening with small amount of pericholecystic fluid suspected. No biliary dilatation. Positive sonographic Dickinson sign. Findings suggesting hepatic steatosis. JOB #: [id number] Final Signed by: Vahe Espinoza MD Signed (Electronic Signature): 03/11/2022 8:32 am * Exam Date Time Procedure Performing Provider Status 03/11/22 3:[address] Abdomen and Pelvis w/ Contrast Atwo juan, Maryanne; Auth (Verified) Notes: (CT Abdomen and Pelvis w/ Contrast) Reason For Exam: pain CT Abdomen and Pelvis w/ Contrast PROCEDURE INFORMATION: Exam: CT Abdomen And Pelvis With Contrast Exam date and time: 03/11/2022 2:46 AM Age: 46 years old Clinical indication: Abdominal pain; Generalized TECHNIQUE: Imaging protocol: Computed tomography of the abdomen and pelvis with contrast. Radiation optimization: All CT scans at this facility use at least one of these dose optimization techniques: automated exposure control; mA and/or kV adjustment per patient size (includes targeted exams where dose is matched to clinical indication); or iterative reconstruction. Contrast material: ISOVUE 300; Contrast volume: 100 ml; Contrast route: INTRAVENOUS (IV); COMPARISON: CT ABD/PELVIS W CONTRAST 08/18/2020 12:51 PM FINDINGS: Coronary arteries: Mild calcifications are seen in the coronary arteries. Liver: Normal. No mass. Gallbladder and bile ducts: Normal. No calcified stones. No ductal dilation. Pancreas: Some subtle haziness seen adjacent to the pancreatic head, findings that could represent mild inflammatory changes and pancreatitis. Spleen: Normal. No splenomegaly. Adrenal glands: Normal. No mass. Kidneys and ureters: Normal. No hydronephrosis. Stomach and bowel: There are nondilated small bowel loops present proximally containing fluid, findings that could represent duodenal and jejunal ileus. Appendix: No evidence of appendicitis. Intraperitoneal space: Unremarkable. No free air. No significant fluid collection. Vasculature: Unremarkable. No abdominal aortic aneurysm. Lymph nodes: Unremarkable. No enlarged lymph nodes. Urinary bladder: Unremarkable as visualized. Reproductive: There are calcifications seen within the proximal ductus deferens bilaterally, findings that could be seen with diabetes. Other possibilities including tuberculosis, schistosomiasis, and chronic infections are considerations. Bones/joints: Unremarkable. No acute fracture. Soft tissues: Strandy opacities are seen in the perinephric fascia bilaterally likely representing chronic scarring. There is a small umbilical hernia present containing fat. IMPRESSION: 1. There is haziness seen adjacent to the pancreatic head, findings suggesting mild inflammatory changes and pancreatitis. There is adjacent mild dilatation and fluid present within the duodenum and jejunum possibly representing reactive duodenal and jejunal ileus. 2. Small umbilical hernia containing fat 3. Calcifications seen within the proximal ductus deferens bilaterally, most likely etiology is diabetes. THIS DOCUMENT HAS BEEN ELECTRONICALLY SIGNED BY DENIA TORRES MD on 03/11/2022 04:36 AM Final Signed by: Denia Torres MD Signed (Electronic Signature): 03/11/2022 4:36 am Vital Signs Most recent to oldest [Reference Range]: 1 2 3 4 Temperature Temporal Artery [36-38 Deg C] 37.1 Deg C (03/13/22 11:47 AM) 36.4 Deg C (03/13/22 8:01 AM) 36.6 Deg C (03/13/22 4:53 AM) Temperature Temporal Artery (DegF) [97.3-100 Deg F] 98.06 Deg F (03/12/22 12:11 PM) 96.62 Deg F *LOW* (03/11/22 4:31 PM) 96.8 Deg F *LOW* (03/11/22 1:41 PM) Peripheral Pulse Rate [60-100 bpm] 105 bpm *HI* (03/13/22 11:47 AM) 93 bpm (03/13/22 8:01 AM) 82 bpm (03/13/22 4:53 AM) Heart Rate Monitored [60-100 bpm] 75 bpm (03/12/22 5:12 PM) 85 bpm (03/12/22 12:11 PM) 81 bpm (03/12/22 7:15 AM) Respiratory Rate [12-24 br/min] 16 br/min (03/13/22 11:47 AM) 18 br/min (03/13/22 8:01 AM) 14 br/min (03/13/22 4:53 AM) Blood Pressure [90-140/60-90 mmHg] 178/100mmHg *HI* (03/13/22 11:47 AM) 159/93mmHg *HI* (03/13/22 8:01 AM) 159/86mmHg *HI* (03/13/22 4:53 AM) Mean Arterial Pressure, Cuff [65-140 mmHg] 106 mmHg (03/12/22 12:11 PM) 110 mmHg (03/12/22 7:15 AM) 117 mmHg (03/11/22 1:41 PM) 117 mmHg (03/11/22 1:41 PM) Mean Arterial Pressure Cuff 108 mmHg (03/11/22 8:00 AM) 96 mmHg (03/11/22 6:00 AM) 123 mmHg (03/11/22 5:00 AM) Blood Pressure Location Right arm (03/13/22 4:53 AM) Right arm (03/11/22 4:31 PM) Left arm (03/11/22 1:41 PM) Blood Pressure Method Automatic (03/13/22 4:53 AM) Automatic (03/11/22 4:31 PM) Automatic (03/11/22 1:41 PM) Weight 116.00 kg (03/11/22 1:18 AM) Weight Dosing 117.3 kg (03/11/22 9:16 AM) 116.00 kg (03/11/22 1:38 AM) Height 177.800 cm (03/11/22 9:22 AM) 177.800 cm (03/11/22 9:16 AM) 178.000 cm (03/11/22 1:18 AM) Height/Length Dosing 177.800 cm (03/11/22 9:22 AM) 177.800 cm (03/11/22 9:16 AM) 178.000 cm (03/11/22 1:38 AM) BSA Estimated 0 m2 (03/11/22 9:16 AM) Body Mass Index 37.000 kg/m2 (03/11/22 1:18 AM) Social History Social History Type Response Tobacco Former tobacco user Tobacco Use:. 10-15 cigarettes a day per day. 7 year(s). Sex Hospital Discharge Instructions Patient Education 03/13/2022 10:21:48 Acute Pancreatitis, [id number]-Aqep Acute Pancreatitis Acute pancreatitis happens when the pancreas gets swollen. The pancreas is a large gland in the body that helps to control blood sugar. It also makes enzymes that help to digest food. This condition can last a few days and cause serious problems. The lungs, heart, and kidneys may stop working. What are the causes? Causes include: ??? Alcohol abuse. ??? Drug abuse. ??? Gallstones. ??? A tumor in the pancreas. Other causes include: ??? Some medicines. ??? Some chemicals. ??? Diabetes. ??? An infection. ??? Damage caused by an accident. ??? The poison (venom) from a scorpion bite. ??? Belly (abdominal) surgery. ??? The body's defense system (immune system) attacking the pancreas (autoimmune pancreatitis). ??? Genes that are passed from parent to child (inherited). In some cases, the cause is not known. What are the signs or symptoms? Pain in the upper belly that may be felt in the back. The pain may be very bad. ??? Swelling of the belly. ??? Feeling sick to your stomach (nauseous) and throwing up (vomiting). ??? Fever. How is this treated? You will likely have to stay in the hospital. Treatment may include: ??? Pain medicine. ??? Fluid through an IV tube. ??? Placing a tube in the stomach to take out the stomach contents. This may help you stop throwingup. ??? Not eating for 3???4 days. ??? Antibiotic medicines, if you have an infection. ??? Treating any other problems that may be the cause. ??? Steroid medicines, if your problem is caused by your defense system attacking your body's own tissues. ??? Surgery. Follow these instructions at home: Eating and drinking ??? Follow instructions from your doctor about what to eat and drink. ??? Eat foods that do not have a lot of fat in them. ??? Eat small meals often. Do not eat big meals. ??? Drink enough fluid to keep your pee (urine) pale yellow. ??? Do not drink alcohol if it caused your condition. Medicines ??? Take olao-wob-phwoszr and prescription medicines only as told by your doctor. ??? Ask your doctor if the medicine prescribed to you: ??? Requires you to avoid driving or using heavy machinery. ??? Can cause trouble pooping (constipation). You may need to take steps to prevent or treat trouble pooping: ??? Take ikmo-ats-qioqhhr or prescription medicines. ??? Eat foods that are high in fiber. These include beans, whole grains, and fresh fruits and vegetables. ??? Limit foods that are high in fat and sugar. These include fried or sweet foods. General instructions ??? Do not use any products that contain nicotine or tobacco, such as cigarettes, e-cigarettes, andchewing tobacco. If you need help quitting, ask your doctor. ??? Get plenty of rest. ??? Check your blood sugar at home as told by your doctor. ??? Keep all follow-up visits as told by your doctor. This is important. Contact a doctor if: ??? You do not get better as quickly as expected. ??? You have new symptoms. ??? Your symptoms get worse. ??? You have pain or weakness that lasts a long time. ??? You keep feeling sick to your stomach. ??? You get better and then you have pain again. ??? You have a fever. Get help right away if: ??? You cannot eat or keep fluids down. ??? Your pain gets very bad. ??? Your skin or the white part of your eyes turns yellow. ??? You have sudden swelling in your belly. ??? You throw up. ??? You feel dizzy or you pass out (faint). ??? Your blood sugar is high (over 300 mg/dL). Summary ??? Acute pancreatitis happens when the pancreas gets swollen. ??? This condition is often caused by alcohol abuse, drug abuse, or gallstones. ??? You will likely have to stay in the hospital for treatment. This information is not intended to replace advice given to you by your health care provider. Make sure you discuss any questions you have with your health care provider. Document Revised: 11/26/2018 Document Reviewed: 11/26/2018 [email or web address] Patient Education ?? 2021 [employer]. Follow Up Care 03/11/2022 01:18:07 With:Follow up with primary care provider Address: When:1 week With:Laureen Resendez MD Address: [address] [place] [address] When:1 to 2 weeks Discharge instructions * Alicia Moeller: PERFORM Event Display: Discharge Instructions Authored Date: [id number] SHOSHANA SALGADO :1975 Age:46 years Sex:Male Visit Date:03/11/2022 Hospital Discharge Instructions We would like to thank you for allowing us to assist you with your healthcare needs. The following includes patient education materials and information regarding your injury/illness. After you leave the hospital, you may get your health information including your test results, physician notes and discharge information by accessing your Patient Portal. Your Next Steps Follow Up Appointments Follow Up with??Follow up with primary care provider When:??Within 1 week Follow Up with??Laureen Resendez MD When:??Within 1 to 2 weeks Where: [address] [place] [address] Medications What How Much When Instructions Next Dose Unchanged acetaminophen (Tylenol Extra Strength 500 mg oral tablet) 2 tab Oral (given by mouth) Every 6 hours as needed for as needed for pain Unchanged aspirin (aspirin 81 mg oral tablet, chewable) 1 tab Chewed Every evening Unchanged atorvastatin (atorvastatin 40 mg oral tablet) 1 tab Oral (given by mouth) Every evening Unchanged citalopram (citalopram 10 mg oral tablet) 1 tab Oral (given by mouth) Every evening Unchanged clopidogrel (clopidogrel 75 mg oral tablet) 1 tab Oral (given by mouth) Every evening Unchanged gabapentin (gabapentin 300 mg oral capsule) 2 Capsules Oral (given by mouth) Every evening Unchanged ibuprofen (ibuprofen 200 mg oral tablet) 3 tab Oral (given by mouth) Every 6 hours as needed for as needed for pain Unchanged insulin detemir (Levemir FlexTouch 100 units/ mL subcutaneous solution) 30 Units Subcutaneous (under the skin) Every evening Unchanged insulin lispro (Insulin Lispro KwikPen 100 units/ mL injectable solution) Subcutaneous (under the skin) 3 times a day before meals 20-50 units per SLIDING SCALE ?? Unchanged lisinopril (lisinopril 10 mg oral tablet) 1 tab Oral (given by mouth) Every evening ?? What How Much When Comments Stop Taking dulaglutide (Trulicity Pen 1.5 mg/ 0.5 mL subcutaneous solution) 0.5 Milliliters Subcutaneous (under the skin) Every week On sundays ?? Your Summary Your Care Team Admitting Physician - Daniel Mills MD Attending Physician - Daniel Mills MD Your Diagnosis Diabetes Heart attack High blood pressure Pancreatitis Cholelithiases Fluid depletion Problems Ongoing - Any problem that you are currently receiving treatment for. Diabetes Heart attack High blood pressure Tests Performed/Pending .Morphology (LTTL) Albumin Level Automated Diff Basic Metabolic Panel BMP CBC w/ Diff CMP Electrolyte Panel Glucose POCT Hemoglobin A1C?-- Results Pending -- Lipase Level Lipid Panel Magnesium Level Magnesium Level SARS-CoV-2 (COVID-19) PCR (GeneXpert) CT Abdomen and Pelvis w/ Contrast US Abdomen Limited You will be contacted within 72 hours with your results. Discharge Vitals Temperature??(Temporal Artery) 98.8 ??F (37.1 ??C) Heart Rate??(Peripheral) 105 Respiratory Rate?? 16 Blood Pressure?? 178/100?? Allergies Diphendramine HCL??(Hyperactivity level) melatonin??(Restless legs syndrome) Education Materials Acute Pancreatitis Acute pancreatitis happens when the pancreas gets swollen. The pancreas is a large gland in the body that helps to control blood sugar. It also makes enzymes that help to digest food. This condition can last a few days and cause serious problems. The lungs, heart, and kidneys may stop working. What are the causes? Causes include: ? Alcohol abuse. ? Drug abuse. ? Gallstones. ? A tumor in the pancreas. Other causes include: ? Some medicines. ? Some chemicals. ? Diabetes. ? An infection. ? Damage caused by an accident. ? The poison (venom) from a scorpion bite. ? Belly (abdominal) surgery. ? The body's defense system (immune system) attacking the pancreas (autoimmune pancreatitis). ? Genes that are passed from parent to child (inherited). In some cases, the cause is not known. What are the signs or symptoms? Pain in the upper belly that may be felt in the back. The pain may be very bad. ? Swelling of the belly. ? Feeling sick to your stomach (nauseous) and throwing up (vomiting). ? Fever. How is this treated? You will likely have to stay in the hospital. Treatment may include: ? Pain medicine. ? Fluid through an IV tube. ? Placing a tube in the stomach to take out the stomach contents. This may help you stop throwing up. ? Not eating for 3???4 days. ? Antibiotic medicines, if you have an infection. ? Treating any other problems that may be the cause. ? Steroid medicines, if your problem is caused by your defense system attacking your body's own tissues. ? Surgery. Follow these instructions at home: Eating and drinking ? Follow instructions from your doctor about what to eat and drink. ? Eat foods that do not have a lot of fat in them. ? Eat small meals often. Do not eat big meals. ? Drink enough fluid to keep your pee (urine) pale yellow. ? Do not drink alcohol if it caused your condition. Medicines ? Take [id number] and prescription medicines only as told by your doctor. ? Ask your doctor if the medicine prescribed to you: ? Requires you to avoid driving or using heavy machinery. ? Can cause trouble pooping (constipation). You may need to take steps to prevent or treat trouble pooping: ? Take [id number] or prescription medicines. ? Eat foods that are high in fiber. These include beans, whole grains, and fresh fruits and vegetables. ? Limit foods that are high in fat and sugar. These include fried or sweet foods. General instructions ? Do not use any products that contain nicotine or tobacco, such as cigarettes, e- cigarettes, and chewing tobacco. If you need help quitting, ask your doctor. ? Get plenty of rest. ? Check your blood sugar at home as told by your doctor. ? Keep all follow-up visits as told by your doctor. This is important. Contact a doctor if: ? You do not get better as quickly as expected. ? You have new symptoms. ? Your symptoms get worse. ? You have pain or weakness that lasts a long time. ? You keep feeling sick to your stomach. ? You get better and then you have pain again. ? You have a fever. Get help right away if: ? You cannot eat or keep fluids down. ? Your pain gets very bad. ? Your skin or the white part of your eyes turns yellow. ? You have sudden swelling in your belly. ? You throw up. ? You feel dizzy or you pass out (faint). ? Your blood sugar is high (over 300 mg/dL). Summary ? Acute pancreatitis happens when the pancreas gets swollen. ? This condition is often caused by alcohol abuse, drug abuse, or gallstones. ? You will likely have to stay in the hospital for treatment. This information is not intended to replace advice given to you by your health care provider. Make sure you discuss any questions you have with your health care provider. Document Revised: 11/26/2018 Document Reviewed: 11/26/2018 Elsevier Patient Education ?? 2021 [employer] Patient Name:NAOMI SHOSHANA Constantino I have received this information and my questions have been answered. 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 He states he has been feeling nauseated with meals and throwing up.?? This was not associated with significant abdominal pain.?? Saw his PCP and by his account was told it was possibly his acid reflux.?? Now has generalized upper abdominal pain Review of Systems Constitutional:?No??fevers,?No??chills,?No??sweats Eye:?No??recent visual problems ENT:?No??ear pain,?No??nasal congestion,?No??sore throat Respiratory:?No??shortness of breath,?No??cough Cardiovascular:?No??Chest pain,?No??palpitations,?No??syncope Gastrointestinal:??nausea and abdominal pain as above Genitourinary:?No??hematuria Maciel/Lymph:?No??bruising tendency,?No??swollen lymph glands Endocrine:?No??excessive thirst,??No??excessive hunger Musculoskeletal:??No??back pain,??No??neck pain,??No??joint pain,??No??muscle pain,??No??decreased range of motion Integumentary:?No??rash,?No??pruritus,?No??abrasions Neurologic: Alert & oriented X 4 Psychiatric:?No??anxiety,?No??depression Physical Exam Vitals & Measurements T:??36.0?C ??(Temporal Artery)?? TMIN:??35.9?C ??(Temporal Artery)?? TMAX:??36.0?C ??(Temporal Artery)?? HR:??75??(Peripheral)?? RR:??20?? BP:??175/83?? SpO2:??100%?? HT:??177.800??cm?? WT:??116.00??kg?? BMI:??37.000?? Pain Score:??4?? O2 Therapy:??Room air?? General: Alert and oriented, well nourished,??appears uncomfortable Eye: PERRL, EOMI,?Normal??conjunctiva, no icterus HENT: Normocephalic, Neck: Supple, non-tender,?No??carotid bruits,?No??JVD,?No??lymphadenopathy Lungs: Clear to auscultation and percussion,?Non-labored?? respiration Heart:?Normal?? rate,?Regular??rhythm,?No??murmur,?No??gallop,?No??edema Abdomen: obese, soft, diffusely tender more so in the upper midline Musculoskeletal:?Normal?? range of motion and strength,?No??tenderness,?No??swelling Skin: Skin is warm, dry and pink,?No??rashes,?No??lesions Neurologic: Awake, alert and oriented X4, CN II-XII intact Psychiatric: Cooperative, appropriate mood and affect Assessment/Plan 1.??Diabetes??E11.9 2.??Heart attack??I21.9 3.??High blood pressure??I10 4.??Pancreatitis??K85.90 He has evidence of pancreatitis on CT and labs.?? He has at least 4 possible causes:?? obesity, diabetes, hypertirglycerides, and gallstones.?? He does NOT have any bile duct dilation and his LFT's are all normal.?? I have never seen gallstone pancreatitis with normal LFT's but i suppose it is possible.?? Would go with supportive care.?? If no other etiology for his pancreatitis he can be considered for elective cholecystectomy once pancreatitis resolves 5.??Cholelithiases??K80.20 See above 6.??Ileus??K56.7 7.??Fluid depletion??E86.9 Problem List/Past Medical History Ongoing Diabetes Heart attack High blood pressure Historical No qualifying data Procedure/Surgical History ???Stent placement Medications Inpatient Dextrose 50% injection, 25 g= 50 mL, IV Push, As Directed enoxaparin, 40 mg= 0.4 mL, Subcutaneous, Daily glucagon, 1 mg= 1 EA, Subcutaneous, As Directed insulin aspart Sliding Scale - Medium Dose, Insulin Aspart Sliding Scale See Comment, Subcutaneous,every 6 hr (jeimy) Lactated Ringers Injection 1,000 mL, 1000 mL, IV morphine, 2 mg= 1 mL, IV Push, every 3 hr, PRN naloxone, 0.1 mg= 0.25 mL, IV Push, every 5 min, PRN Normal Saline Flush, 10 mL, IV Flush, As Directed, PRN Plavix, 75 mg= 1 tab, Oral, every evening Protonix, 40 mg= 1 EA, IV Push, Daily Sodium Chloride 0.9% 1,000 mL, 1000 mL, IV Bolus Sodium Chloride 0.9% 1,000 mL, 1000 mL, IV Bolus Home aspirin 81 mg oral tablet, chewable, 81 mg= 1 tab, Chewed, every evening atorvastatin 40 mg oral tablet, 40 mg= 1 tab, Oral, every evening citalopram 10 mg oral tablet, 10 mg= 1 tab, Oral, every evening clopidogrel 75 mg oral tablet, 75 mg= 1 tab, Oral, every evening gabapentin 300 mg oral capsule, 600 mg= 2 cap, Oral, every evening ibuprofen 200 mg oral tablet, 600 mg= 3 tab, Oral, every 6 hr, PRN Insulin Lispro KwikPen 100 units/mL injectable solution, Subcutaneous, TID(AC) Levemir FlexTouch 100 units/mL subcutaneous solution, 30 units, Subcutaneous, every evening lisinopril 10 mg oral tablet, 10 mg= 1 tab, Oral, every evening Trulicity Pen 1.5 mg/0.5 mL subcutaneous solution, 1.5 mg= 0.5 mL, Subcutaneous, every week Tylenol Extra Strength 500 mg oral tablet, 1000 mg= 2 tab, Oral, every 6 hr, PRN Allergies Diphendramine HCL??(Hyperactivity level) melatonin??(Restless legs syndrome) Social History Alcohol Current, Beer, 1-2 times per month Electronic Cigarette/Vaping Electronic Cigarette Use: Never. Home/Environment Lives with Spouse. Living situation: Home/Independent. Tobacco Former tobacco user Tobacco Use:. 10-15 cigarettes a day per day. 7 year(s). Electronically Signed on 03/11/22 07:56 PM Devin Timmons MD Physician Emergency department Note * Karlo Baker MD: PERFORM Event Display: ED Note Physician Authored Date: [id number] SHOSHANA SALGADO :1975 Age:46 years Sex:Male Visit Date:03/11/2022 Basic Information Time Seen: Karlo Baker MD / 03/11/2022 02:06 Chief Complaint abdominal pain with constipation x 2 weeks History Of Present Illness: Patient states he has been doing with??abdominal distention and discomfort for 2 weeks with??constipation??nausea and vomiting. Review of Systems: Review of systems negative other than that stated above Physical Exam Vitals & Measurements T:??36.0?C ??(Temporal Artery)?? HR:??96??(Monitored)?? RR:??16?? BP:??164/89?? SpO2:??100%?? HT:??178.000??cm?? WT:??116.00??kg?? BMI:??37.000?? Pain Score:??8?? O2 Therapy:??Room air?? General: Alert and oriented, well nourished, mild acute distress. Eye: PERRL, EOMI, normal conjunctiva. HENT: Normocephalic,??normal hearing, moist oral mucosa, no scleral icterus, . Neck: Supple, non-tender, no carotid bruits, no JVD, no lymphadenopathy. No rigidity Lungs: Clear to auscultation and percussion, non-labored respiration. Heart: Normal rate, regular rhythm, no murmur, gallop or edema. Abdomen: Distended??not particularly tympanitic??four-quadrant??tenderness, normal bowel sounds, nomasses. Musculoskeletal: Normal range of motion and strength, no tenderness or swelling. Skin: Skin is warm, dry and appropriate for ethnicity, no rashes or lesions. Neurologic: Awake, alert and oriented X4, CN II-XII intact. Psychiatric: Cooperative, appropriate mood and affect. Procedure No Qualifying Data Reexamination/Reevaluation Patient given IV fluids Zofran morphine and Tylenol. ??Appears to be in??mild distress. ??I spoke with Dr. Meléndez the surgeon who recommended ultrasound and if there are no??gallstones to admit??under the medical service. ??Ultrasound was performed which does not fact show gallstones??and accordingto radiology some??gallbladder wall thickening. ??I spoke with Dr. Timmons in the??surgeon on-call at this point and he??came and evaluated the patient and believes that??this is a nonsurgical case and??recommends that patient be admitted under the medical service. ??I spoke with??Dr. Mills and patient??will be admitted under the medical service for pancreatitis Assessment/Plan Ordered: Normal Saline Flush, 10 mL, IV Flush, Injection, As Directed, PRN pipe line walker, First Dose: 03/11/22 1:43:00 EST, Routine Sodium Chloride 0.9% 1,000 mL, Total Volume (mL): 1,000, 1,000 mL, Soln-IV, IV Bolus, 999 mL/hr, Order Duration: 1 times, Start Date: 03/11/22 2:21:00 EST, Stop Date: 03/11/22 3:20:00 EST, 116 kg, Populate Charting Weight From Order, 2.39, m2 Sodium Chloride 0.9% 1,000 mL, Total Volume (mL): 1,000, 1,000 mL, Soln-IV, IV Bolus, 999 mL/hr, Order Duration: 1 times, Start Date: 03/11/22 7:17:00 EST, Stop Date: 03/11/22 8:16:00 EST, 116 kg, Populate Charting Weight From Order, 2.39, m2 Cardiac Monitoring, 03/11/22 1:41:00 EST, May be off for activity: Yes NPO, 03/11/22 1:41:00 EST, Except for Medications, Constant Indicator SARS-CoV-2 (COVID-19) PCR (GeneXpert), Nasal Swab, Stat Collect, 03/11/22 7:30:00 EST, Once, Nurse collect, Print Label, No, Unknown, No, No, No, Not Medication Reconciliation Unchanged atorvastatin ?? citalopram ?? clopidogrel ?? dulaglutide (Trulicity Pen) ?? gabapentin ?? insulin lispro (HumaLOG) ?? lisinopril ?? omeprazole (omeprazole 40 mg oral delayed release capsule)1 Capsules Oral (given by mouth) every day. Refills: 0. Problem List/Past Medical History Ongoing Diabetes Heart attack High blood pressure Historical No qualifying data Procedure/Surgical History ???Stent placement Medication Administration Given Sodium Chloride 0.9%, 1000 mL, IV Bolus !-Zofran, 4 mg, IV Push !-Zofran, 4 mg, IV Push acetaminophen, 1000 mg, IV Piggyback morphine, 4 mg, IV Allergies No Known Medication Allergies Social History Electronic Cigarette/Vaping Electronic Cigarette Use: Never. Tobacco Never tobacco user Tobacco Use:. Diagnostic Results CT Abdomen and Pelvis w/ Contrast 03/11/2022 04:36 EST US Abdomen Limited 03/11/2022 08:34 EST US Abdomen Limited ?? 03/11/22 08:32:24 EXAM DESCRIPTION: US Abdomen Limited ?? 03/11/2022 ?? INDICATION: RIGHT UPPER ABDOMINAL PAIN ?? TECHNIQUE: Grayscale and color Doppler ultrasound examination of the right upper quadrant region of the abdomen. ?? Examination is limited by abdominal pain elicited by transducer placement. This limited image acquisition. ?? COMPARISON: CT abdomen/pelvis from 03/11/2022, 0246 hours ?? FINDINGS: Liver measurement not well obtained secondary to study limitations described above. Visualized portions of the liver demonstrate diffusely increased echogenicity suggesting hepatic steatosis. No focal hepatic lesion identified in visualized portions of the liver. The main portal vein was not well assessed. ?? No ascites in the right upper quadrant ?? The pancreas is obscured by overlying bowel gas ?? Echogenic, shadowing gallstones in the gallbladder. Gallbladder wall is borderline thickened measuring 3 mm. Small amount of pericholecystic fluid is suspected. No biliary dilatation with common bile duct diameter of 3 mm ?? Positive sonographic Dickinson sign. ?? Survey of the right kidney demonstrates no hydronephrosis. No right perinephric fluid collection. ?? IMPRESSION: Mildly limited examination as described above ?? Cholelithiasis. Mild gallbladder wall thickening with small amount of pericholecystic fluid suspected. ?? No biliary dilatation. ?? Positive sonographic Dickinson sign. ?? Findings suggesting hepatic steatosis. ? JOB #: [id number] Electronically Signed By: ?? Signed By: Vahe Espinoza MD ?? CT Abdomen and Pelvis w/ Contrast ?? 03/11/22 02:46:17 PROCEDURE INFORMATION: Exam: CT Abdomen And Pelvis With Contrast Exam date and time: 03/11/2022 2:46 AM Age: 46 years old Clinical indication: Abdominal pain; Generalized ?? TECHNIQUE: Imaging protocol: Computed tomography of the abdomen and pelvis with contrast. Radiation optimization: All CT scans at this facility use at least one of these dose optimization techniques: automated exposure control; mA and/or kV adjustment per patient size (includes targeted exams where dose is matched to clinical indication); or iterative reconstruction. Contrast material: ISOVUE 300; Contrast volume: 100 ml; Contrast route: INTRAVENOUS (IV); ?? COMPARISON: CT ABD/PELVIS W CONTRAST 08/18/2020 12:51 PM ?? FINDINGS: Coronary arteries: Mild calcifications are seen in the coronary arteries. ?? Liver: Normal. No mass. Gallbladder and bile ducts: Normal. No calcified stones. No ductal dilation. Pancreas: Some subtle haziness seen adjacent to the pancreatic head, findings that could represent mild inflammatory changes and pancreatitis. Spleen: Normal. No splenomegaly. Adrenal glands: Normal. No mass. Kidneys and ureters: Normal. No hydronephrosis. Stomach and bowel: There are nondilated small bowel loops present proximally containing fluid, findings that could represent duodenal and jejunal ileus. Appendix: No evidence of appendicitis. ?? Intraperitoneal space: Unremarkable. No free air. No significant fluid collection. Vasculature: Unremarkable. No abdominal aortic aneurysm. Lymph nodes: Unremarkable. No enlarged lymph nodes. Urinary bladder: Unremarkable as visualized. Reproductive: There are calcifications seen within the proximal ductus deferens bilaterally, findings that could be seen with diabetes. Other possibilities including tuberculosis, schistosomiasis, and chronic infections are considerations. Bones/joints: Unremarkable. No acute fracture. Soft tissues: Strandy opacities are seen in the perinephric fascia bilaterally likely representing chronic scarring. There is a small umbilical hernia present containing fat. ?? IMPRESSION: 1. There is haziness seen adjacent to the pancreatic head, findings suggesting mild inflammatory changes and pancreatitis. There is adjacent mild dilatation and fluid present within the duodenum and jejunum possibly representing reactive duodenal and jejunal ileus. 2. Small umbilical hernia containing fat 3. Calcifications seen within the proximal ductus deferens bilaterally, most likely etiology is diabetes. ? THIS DOCUMENT HAS BEEN ELECTRONICALLY SIGNED BY DENIA TORRES MD on 03/11/2022 04:36 AM ?? Signed By: Denia Torres MD Diagnostic Study Interpretation: CT of abdomen pelvis according to radiology shows??inflammation in the pancreatic head??but surrounding??duodenum??and jejunum??have mild??dilatation and fluid??which could represent reactive ileus. ??No obstruction Lab Results CBC and Differential?? LATEST RESULTS?? HISTORICAL RESULTS?? WBC?? 03/11/22 01:45?? 13.2 ??High?? 01/05/22?? 10.2?? RBC?? 03/11/22 01:45?? 5.12?? 01/05/22?? 5.70?? Hgb?? 03/11/22 01:45?? 10.6 ??Low?? 01/05/22?? 11.8 ??Low?? Hct?? 03/11/22 01:45?? 35.1 ??Low?? 01/05/22?? 39.3?? MCV?? 03/11/22 01:45?? 68.6 ??Low?? 01/05/22?? 68.9 ??Low?? MCH?? 03/11/22 01:45?? 20.7 ??Low?? 01/05/22?? 20.7 ??Low?? MCHC?? 03/11/22 01:45?? 30.2 ??Low?? 01/05/22?? 30.0 ??Low?? RDW-CV?? 03/11/22 01:45?? 17.5 ??High?? 01/05/22?? 18.0 ??High?? Platelets?? 03/11/22 01:45?? 290?? 01/05/22?? 257?? MPV?? 03/11/22 01:45?? 11.0 ??High?? 01/05/22?? 11.9 ??High?? Neutro Auto?? 03/11/22 01:45?? 70.2?? 01/05/22?? 71.6?? Lymph Auto?? 03/11/22 01:45?? 14.3 ??Low?? 01/05/22?? 17.3 ??Low?? Bolivar Auto?? 03/11/22 01:45?? 7.6?? 01/05/22?? 7.1?? Eos, Auto?? 03/11/22 01:45?? 6.80 ??High?? 01/05/22?? 2.60?? Basophil Auto?? 03/11/22 01:45?? 0.7?? 01/05/22?? 1.0 ??High?? Imm Gran Auto?? 03/11/22 01:45?? 0.4?? 01/05/22?? 0.4?? Neutro Absolute?? 03/11/22 01:45?? 9.2 ??High?? 01/05/22?? 7.3 ??High?? Lymph Absolute?? 03/11/22 01:45?? 1.9?? 01/05/22?? 1.8?? Bolivar Absolute?? 03/11/22 01:45?? 1.0 ??High?? 01/05/22?? 0.7 ??High?? Eos Absolute?? 03/11/22 01:45?? 0.9 ??High?? 01/05/22?? 0.3 ??High?? Baso Absolute?? 03/11/22 01:45?? 0.1?? 01/05/22?? 0.1?? Imm Gran Absolute?? 03/11/22 01:45?? 0.05?? 01/05/22?? 0.04?? RBC Morph?? 03/11/22 01:45?? Abnormal Abnormal?? 01/05/22?? Abnormal Abnormal?? Anisocyte?? 03/11/22 01:45?? 1+? Hypochromia?? 03/11/22 01:45?? 2+ Abnormal?? 01/05/22?? 2+ Abnormal?? Microcyte?? 03/11/22 01:45?? 3+ Abnormal?? 01/05/22?? 2+ Abnormal?? Plt Estimation?? 03/11/22 01:45?? Normal?? 01/05/22?? Normal?? Plt Large?? 03/11/22 01:45?? Moderate Abnormal?? 01/05/22?? Few Abnormal? Routine Chemistry?? LATEST RESULTS?? HISTORICAL RESULTS?? Sodium Level?? 03/11/22 01:45?? 138?? 01/05/22?? 137?? Potassium Level?? 03/11/22 01:45?? 4.3?? 01/05/22?? 4.2?? Chloride Level?? 03/11/22 01:45?? 103?? 01/05/22?? 100?? CO2?? 03/11/22 01:45?? 22?? 01/05/22?? 26?? Alk Phos?? 03/11/22 01:45?? 87?? 01/05/22?? 62?? AST?? 03/11/22 01:45?? 17?? 01/05/22?? 23?? ALT?? 03/11/22 01:45?? 19?? 01/05/22?? 27?? BUN?? 03/11/22 01:45?? 33 ??High?? 01/05/22?? 31 ??High?? Glucose Level?? 03/11/22 01:45?? 200 ??High?? 01/05/22?? 185 ??High?? Creatinine Level?? 03/11/22 01:45?? 1.47 ??High?? 01/05/22?? 1.65 ??High?? BUN/Creat Ratio?? 03/11/22 01:45?? 22.4 ??High?? 01/05/22?? 18.8?? Calcium Level?? 03/11/22 01:45?? 8.8 ??Low?? 01/05/22?? 9.0?? Protein Total?? 03/11/22 01:45?? 7.3?? 01/05/22?? 6.9?? Albumin Level?? 03/11/22 01:45?? 3.3 ??Low?? 01/05/22?? 3.5?? Globulin?? 03/11/22 01:45?? 4.0?? 01/05/22?? 3.4?? A/G Ratio?? 03/11/22 01:45?? 0.8?? 01/05/22?? 1.0?? Bilirubin Total?? 03/11/22 01:45?? 0.8?? 01/05/22?? 0.3?? Anion Gap?? 03/11/22 01:45?? 13.0 ??High?? 01/05/22?? 11.0?? Lipase Level?? 03/11/22 01:45?? 255 ??High? Osmolality?? 03/11/22 01:45?? 289?? 01/05/22?? 285?? eGFR CKD-EPI?? 03/11/22 01:45?? 60? Electronically Signed on 03/11/22 08:48 AM Karlo MD Olivia Progress note * Devin Timmons MD: PERFORM Event Display: Progress Note - Physician Authored Date: [id number] SHOSHANA SALGADO :1975 Age:46 years Sex:Male Visit Date:03/11/2022 Anticipated Discharge Date tomorrow Subjective He feels much better today.?? Just ate breakfast without nausea or abdominal pain Objective Vitals & Measurements T:??36.3?C ??(Temporal Artery)?? TMIN:??35.9?C ??(Temporal Artery)?? TMAX:??36.6?C ??(Temporal Artery)?? HR:??81??(Monitored)?? RR:??16?? BP:??159/86?? SpO2:??95%?? Pain Score:??1?? O2 Therapy:??Room air?? Physical Exam obese, abdomen soft, minimal tenderness Assessment/Plan 1.??Diabetes??E11.9 2.??Heart attack??I21.9 3.??High blood pressure??I10 4.??Pancreatitis??K85.90 all labs have improved.?? Pain much better. 5.??Cholelithiases??K80.20 Have him see gen surg as outpatient to discuss possible elective cholecystectomy 6.??Ileus??K56.7 7.??Fluid depletion??E86.9 Electronically Signed on 03/12/22 11:32 AM Devin Timmons MD * Daniel Mills MD: PERFORM Event Display: Progress Note - Physician Authored Date: [id number] SHOSHANA SALGADO :1975 Age:46 years Sex:Male Visit Date:03/11/2022 Anticipated Discharge Date Tomorrow Subjective The patient is feeling better Review of Systems Constitutional: Minimal pain, hungry ENT:??No ear pain, nasal congestion, sore throat Respiratory:??No shortness of breath, cough Cardiovascular:??No Chest pain, palpitations, syncope Gastrointestinal: Minimal discomfort of any Genitourinary:??No hematuria Musculoskeletal:??No back pain, neck pain, joint pain, muscle pain, decreased range of motion Neurologic:??Alert & oriented X 4 Objective Vitals & Measurements T:??36.3?C ??(Temporal Artery)?? TMIN:??35.9?C ??(Temporal Artery)?? TMAX:??36.6?C ??(Temporal Artery)?? HR:??81??(Monitored)?? RR:??16?? BP:??159/86?? SpO2:??95%?? Pain Score:??1?? O2 Therapy:??Room air?? Physical Exam General: Looks comfortable.?? HENT:??Normocephalic, clear tympanic membranes, normal hearing, moist oral mucosa, no scleral icterus, no sinus tenderness.?? Lungs:??Clear to auscultation and percussion, non-labored respiration.?? Heart:??Normal rate, regular rhythm, no murmur, gallop or edema. Abdomen: Only mild discomfort to deep palpitation in the epigastric area, still with some right upper quadrant tenderness. ??Bowel sounds are improved..?? Musculoskeletal:??Normal range of motion and strength, no tenderness or swelling. Skin:??Skin is warm, dry and pink, no rashes or lesions. Neurologic:??Awake, alert and oriented X4, CN I-XII intact Lab Results Last 24 Hours?? Chemistry ? Event Name?? Event Result?? Date/Time?? Sodium Level 136 mmol/L 03/12/22 05:21:57 Potassium Level 4.6 mmol/L 03/12/22 05:21:57 Chloride Level 103 mmol/L 03/12/22 05:21:57 CO2 26 mmol/L 03/12/22 05:21:57 BUN 16 mg/dL 03/12/22 05:21:57 Glucose Level 213 mg/dL??High 03/12/22 05:21:57 Creatinine Level 1.24 mg/dL 03/12/22 05:21:57 BUN/Creat Ratio 12.9 03/12/22 05:21:57 Calcium Level 8.7 mg/dL??Low 03/12/22 05:21:57 Anion Gap 7 03/12/22 05:21:57 Lipase Level 62 unit/L??High 03/12/22 05:21:57 Magnesium Level 1.6 mg/dL??Low 03/12/22 05:21:57 Osmolality 280 mOsm/kg 03/12/22 05:21:57 Glucose POC 184 03/12/22 05:30:00 eGFR CKD-EPI 74 mL/min/1.73 m2 03/12/22 05:21:57 Triglycerides 250 mg/dL??High 03/12/22 05:30:00 Cholesterol Total 128 mg/dL??Low 03/12/22 05:30:00 HDL 22 mg/dL??Low 03/12/22 05:30:00 Chol/HDL 5.8 03/12/22 05:30:00 LDL 56.2 03/12/22 05:30:00 ? Hematology ? Event Name?? Event Result?? Date/Time?? WBC 11.4 K/mcL??High 03/12/22 04:00:00 RBC 4.6 Million/mcL 03/12/22 04:00:00 Hgb 9.4 g/dL??Low 03/12/22 04:00:00 Hct 31.3 %??Low 03/12/22 04:00:00 MCV 68 fL??Low 03/12/22 04:00:00 MCH 20.4 pg??Low 03/12/22 04:00:00 MCHC 30 g/dL??Low 03/12/22 04:00:00 RDW-CV 17.2 %??High 03/12/22 04:00:00 Platelets 267 K/mcL 03/12/22 04:00:00 MPV 11.1 fL??High 03/12/22 04:00:00 Neutro Auto 70.1 % 03/12/22 04:00:00 Lymph Auto 16.2 %??Low 03/12/22 04:00:00 Bolivar Auto 6.1 % 03/12/22 04:00:00 Eos, Auto 6.8 %??High 03/12/22 04:00:00 Basophil Auto 0.5 % 03/12/22 04:00:00 Imm Gran Auto 0.3 % 03/12/22 04:00:00 Neutro Absolute 8 K/mcL??High 03/12/22 04:00:00 Lymph Absolute 1.8 K/mcL 03/12/22 04:00:00 [place] Absolute 0.7 K/mcL??High 03/12/22 04:00:00 Eos Absolute 0.8 K/mcL??High 03/12/22 04:00:00 Baso Absolute 0.1 K/mcL 03/12/22 04:00:00 Imm Gran Absolute 0.03 03/12/22 04:00:00 ? Assessment/Plan 1.??Diabetes??E11.9 Carbohydrate controlled diet,??insulin??sliding scale??while??being treated for pancreatitis.?? Hemoglobin A1c pending.?? Discharge diet control??and PCP follow-up. 2.??Heart attack??I21.9 Maintain Plavix.?? Maintain CAR inhibitor. 3.??High blood pressure??I10 Lisinopril restarted. 4.??Pancreatitis??K85.90 Causation may be gallbladder access, general surgery consulted. ??Medication list less likely the culprit. ??Triglycerides are elevated but only mildly.?His lipase is near normal. ??Continue aggressive pancreatic protocol. ??Start early refeeding today. 5.??Cholelithiases??K80.20 Per general surgery, may be contributory but no operation while??currently has pancreatitis. ??General surgery follow-up. 6.??Ileus??K56.7 Per general surgery, no need for NG tube. 7.??Fluid depletion??E86.9 Continue aggressive fluid resuscitation but lower rate. ?? Time spent on patient care today is 40 minutes. Orders: Dulcolax Laxative, 10 mg = 1 supp, [place], Supp, Daily for 30 days, PRN constipation, First Dose: 03/12/22 9:44:00 EST, Stop Date: 04/11/22 9:43:00 EST, Physician Stop, Routine Plavix, 75 mg = 1 tab, Oral, Tab, every evening for 30 days, First Dose: 03/11/22 21:00:00 EST, Stop Date: 04/10/22 20:59:00 EST, Physician Stop, Routine docusate-senna 50 mg-8.6 mg oral tablet, 1 tab, Oral, Tab, BID for 30 days, First Dose: 03/12/22 9:44:00 EST, Stop Date: 04/11/22 8:59:00 EST, Physician Stop, Routine gabapentin, 600 mg = 2 cap, Oral, Cap, every evening for 30 days, First Dose: 03/12/22 21:00:00 EST, Stop Date: 04/11/22 20:59:00 EST, Physician Stop, Routine glucagon, 1 mg = 1 EA, Subcutaneous, Injection, As Directed, First Dose: 03/12/22 8:46:00 EST, Physician Stop, Routine Dextrose 50% injection, 25 g = 50 mL, IV Push, Injection, As Directed, First Dose: 03/12/22 8:46:00EST, Physician Stop, Routine insulin aspart Sliding Scale - Low Dose, Insulin Aspart Sliding Scale See Comment, Subcutaneous, Soln, AC, First Dose: 03/12/22 11:30:00 EST, Routine Lactated Ringers Injection 1000 mL, Total Volume (mL): 1,000, 1,000 mL, Soln-IV, IV, 125 mL/hr, Start Date: 03/11/22 8:59:00 EST, 116 kg, Populate Charting Weight From Order, 2.39, m2 lisinopril, 10 mg = 1 tab, Oral, Tab, every evening, First Dose: 03/12/22 21:00:00 EST, Physician Stop, Routine magnesium sulfate, 1 g = 100 mL, IV Piggyback, Injection, Once, Administer over: 1 hr, First Dose: 03/12/22 9:00:00 EST, Stop Date: 03/12/22 9:00:00 EST, Physician Stop, Routine, 100 mL/hr Diet Order, 03/11/22 8:59:00 EST, Consistent Carbohydrates, Low Fat Hgb A1c, Blood, Routine, 03/12/22 8:45:00 EST, Once, Lab Collect Electronically Signed on 03/12/22 09:49 AM Daniel Mills MD History and physical note * Daniel Mills MD: PERFORM Event Display: History and Physical Authored Date: [id number] SHOSHANA SALGADO :1975 Age:46 years Sex:Male Visit Date:03/11/2022 Chief Complaint Abdominal pain History of Present Illness This is a very pleasant??46-year-old male who I am meeting for the first time on this visit. ?? He has a history of??cardiac stent, 2 stents, on Plavix. He is morbidly obese. He??is an insulin-dependent diabetic. ?? The patient has noted over the past month that he has had pain, mostly postprandial pain although it is not definitively so clear. ?? His PCP thought he did have gastritis. ??He was started on a PPI. ?? He did have an emergency room visit for such. ?? However, starting yesterday, the patient's pain which usually is related to food??is now consistentand??worse.?? This continued into the??nighttime and he came to the emergency room for evaluation. ?? In the Emergency room the patient was noted to have pancreatitis on imaging,??mildly elevated lipase. ?? The general surgeon was called and felt??ultrasound of the gallbladder should be undertaken. ??There were some??positive findings including??cholelithiasis,??mildly dilated bile duct, positive sonographic Dickinson sign. ?? General surgery was called again and felt that as they would not be doing an operation at this time, even if this was gallbladder pancreatitis??so the patient is admitted to the hospitalist service. Review of Systems Constitutional: Abdominal discomfort, no fevers ENT:??No ear pain, nasal congestion, sore throat Respiratory:??No shortness of breath, cough Cardiovascular:??No Chest pain, palpitations, syncope Gastrointestinal: Nausea without vomiting, abdominal discomfort,??sometimes postprandial but not consistent Genitourinary:??No hematuria Musculoskeletal:??No back pain, neck pain, joint pain, muscle pain, decreased range of motion Neurologic:??Alert & oriented X 4 ?? Physical Exam Vitals & Measurements T:??36.0?C ??(Temporal Artery)?? HR:??78??(Peripheral)?? RR:??20?? BP:??143/88?? SpO2:??100%?? HT:??177.800??cm?? WT:??116.00??kg?? BMI:??37.000?? Pain Score:??8?? O2 Therapy:??Room air?? General: This looks comfortable at rest although he just has received medication..?? HENT:??Normocephalic, clear tympanic membranes, normal hearing, moist oral mucosa, no scleral icterus, no sinus tenderness.?? Lungs:??Clear to auscultation and percussion, non-labored respiration.?? Heart: No tachycardia. Abdomen: Bowel sounds are hypoactive but present,??pain in the epigastrium to right upper quadrant.?? Musculoskeletal:??Normal range of motion and strength, no tenderness or swelling. Skin:??Skin is warm, dry and pink, no rashes or lesions. Neurologic:??Awake, alert and oriented X4, CN I-XII intact Assessment/Plan 1.??Diabetes??E11.9 He is n.p.o., every 6 insulin dosing. 2.??Heart attack??I21.9 Maintain Plavix, hold CAR inhibitor for now. 3.??High blood pressure??I10 Hold CAR inhibitor, blood pressure is robust. 4.??Pancreatitis??K85.90 Pancreatic protocol which means aggressive or early fluid, frequent vital signs, twice daily electrolyte checks, early refeeding when possible. ??Far as causation the patient does not drink, I am sending out triglycerides in the morning. ??Gallbladder access needs to be highly considered. 5.??Cholelithiases??K80.20 General surgery consultation. ??May be causation but no immediate surgical action. 6.??Ileus??K56.7 General surgery consultation.?? Most likely secondary to pancreatitis as above.?? No need for NG tube at this time. 7.??Fluid depletion??E86.9 LR 250 mL an hour. ?? Time spent on patient care today is 60 minutes. Orders: Plavix, 75 mg = 1 tab, Oral, Tab, Daily for 30 days, First Dose: 03/12/22 9:00:00 EST, Stop Date: 04/11/22 8:59:00 EST, Physician Stop, Routine enoxaparin, 40 mg = 0.4 mL, Subcutaneous, Injection, Daily, First Dose: 03/11/22 9:00:00 EST, Routine glucagon, 1 mg = 1 EA, Subcutaneous, Injection, As Directed, First Dose: 03/11/22 9:02:00 EST, Physician Stop, Routine Dextrose 50% injection, 25 g = 50 mL, IV Push, Injection, As Directed, First Dose: 03/11/22 9:02:00EST, Physician Stop, Routine insulin aspart Sliding Scale - Medium Dose, Insulin Aspart Sliding Scale See Comment, Subcutaneous,Soln, every 6 hr (jeimy), First Dose: 03/11/22 12:00:00 EST, Routine Lactated Ringers Injection 1,000 mL, Total Volume (mL): 1,000, 1,000 mL, Soln- IV, IV, 250 mL/hr, Start Date: 03/11/22 8:59:00 EST, 116 kg, Populate Charting Weight From Order, 2.39, m2 morphine, 2 mg = 1 mL, IV Push, Injection, every 3 hr, PRN pain, severe, First Dose: 03/11/22 8:59:00 EST, Routine naloxone, 0.1 mg = 0.25 mL, IV Push, Injection, every 5 min, PRN other (see comment), First Dose: 03/11/22 8:59:00 EST, Routine Protonix, 40 mg = 1 EA, IV Push, Vial, Daily for 30 days, First Dose: 03/11/22 11:30:00 EST, Stop Date: 04/10/22 6:29:00 EST, Physician Stop, Routine Automated Diff, Blood, Routine, 03/11/22 9:00:00 EST, Once, Lab Collect, [id number] Basic Metabolic Panel, Blood, Routine, 03/11/22 18:00:00 EST, Once, Lab Collect Basic Metabolic Panel, Blood, Routine, 03/11/22 9:00:00 EST, Daily, for 3 days, Lab Collect CBC w/ Diff, Blood, Routine, 03/11/22 9:00:00 EST, Daily, for 3 days, Lab Collect Consult to Dietitian Adult, 03/11/22 8:59:00 EST, Reason for Consult Education Diet Order, 03/11/22 8:59:00 EST, NPO Intake and Output, 03/11/22 8:59:00 EST, every 12 hr (jeimy), q shift, 03/11/22 9:00:00 EST Lipase Level, Blood, Routine, 03/11/22 9:00:00 EST, Daily, for 3 days, Lab Collect Lipid Panel, Blood, Routine, 03/11/22 8:59:00 EST, every morning, for 1 days, Lab Collect Magnesium Level, Blood, Routine, 03/11/22 9:00:00 EST, Daily, for 3 days, Lab Collect Patient Condition, 03/11/22 8:59:00 EST, Condition Guarded PSO Admit to Inpatient, Micheal, Inpatient, 03/11/22 8:50:00 EST, 03/11/22 8:50:00 EST, 03/11/22 8:50:00 EST, 2 midnights or more Resuscitation Status, 03/11/22 8:59:00 EST, Full Code Up ad Mildred, 03/11/22 8:59:00 EST, Constant Order, at nurse's discretion Vital Signs, 03/11/22 8:59:00 EST, every 4 hr (jeimy) Weight, 03/12/22 5:00:00 EST, every 24 hr Problem List/Past Medical History Ongoing Diabetes Heart attack High blood pressure Historical No qualifying data Procedure/Surgical History ???Stent placement Medications Inpatient Dextrose 50% injection, 25 g= 50 mL, IV Push, As Directed enoxaparin, 40 mg= 0.4 mL, Subcutaneous, Daily glucagon, 1 mg= 1 EA, Subcutaneous, As Directed insulin aspart Sliding Scale - Medium Dose, Insulin Aspart Sliding Scale See Comment, Subcutaneous,every 6 hr (jeimy) Lactated Ringers Injection 1,000 mL, 1000 mL, IV morphine, 2 mg= 1 mL, IV Push, every 3 hr, PRN naloxone, 0.1 mg= 0.25 mL, IV Push, every 5 min, PRN Normal Saline Flush, 10 mL, IV Flush, As Directed, PRN Plavix, 75 mg= 1 tab, Oral, Daily Protonix, 40 mg= 1 EA, IV Push, Daily Sodium Chloride 0.9% 1,000 mL, 1000 mL, IV Bolus Sodium Chloride 0.9% 1,000 mL, 1000 mL, IV Bolus Home atorvastatin citalopram clopidogrel gabapentin HumaLOG Levemir 100 units/mL subcutaneous solution, See Instructions lisinopril omeprazole 40 mg oral delayed release capsule, 40 mg= 1 cap, Oral, Daily Trulicity Pen Allergies No Known Medication Allergies Social History Alcohol Current, Beer, 1-2 times per month Electronic Cigarette/Vaping Electronic Cigarette Use: Never. Home/Environment Lives with Spouse. Living situation: Home/Independent. Tobacco Former tobacco user Tobacco Use:. 10-15 cigarettes a day per day. 7 year(s). Electronically Signed on 03/11/22 11:35 AM Daniel Mills MD Discharge summary * Daniel Mills MD: PERFORM Event Display: Discharge Summary Authored Date: [id number] SHOSHANA SALGADO :1975 Age:46 years Sex:Male Visit Date:03/11/2022 Admission Information Pancreatitis Hospital Course This is a pleasant??46-year-old male meeting for the first time on this visit. ?? He has a??past medical history of CAD with 2 stents on Plavix. ?? He has hypertension. ?? He is morbidly obese. ?? He has insulin-dependent diabetes with a recent increase in his dose of Trulicity. ?? The patient has a complaint of postprandial pain going on for approximately 6 weeks. ??There is a concern it may be gastritis and he was started on PPI. ?? With a day before admission and the day of admission he noted a more acute pain, constant, epigastric and right upper quadrant. ??He came to the emergency room for evaluation. ?? In the emergency room??the patient was noted to have a mildly elevated lipase, acute pancreatitis in the head of the pancreas on imaging. ??General surgery was called as based on cholelithiasis and some mild??common bile duct wall thickening.?? He had no increase in LFTs and they thought that the gallbladder could be the causation but??her multiple other factors and??the gallbladder would not be coming out immediately. ?? He will have general surgery follow-up. ?? Regarding the pancreatitis he went on pancreatic protocol. ??This means frequent vital signs, aggressive IV fluid resuscitation, early refeeding if possible, and??electrolyte checks twice daily. ?? He did quite well and by today, day of discharge, his lipase is now 42. ??He has eaten a full thorough breakfast with eggs, toast,??chicken sausage, and has no postprandial pain. ??He is ready for discharge. ?? He will go back on his insulin regiment now that he is eating. However,??I will recommend holding the Trulicity until he sees his PCP as this could be a cause of??pancreatitis.?? To that point general surgery feels it is not gallbladder related and he may need GI referral. ?? Fortunately,??the patient is on a sliding scale so he can adjust to??removal of Trulicity which he would have today on Monday??with an increase of his sliding scale necessary and eventually through his PCP if not restarted through an increase in his baseline insulin. Physical Exam Vitals & Measurements T:??36.4?C ??(Temporal Artery)?? TMIN:??36.4?C ??(Temporal Artery)?? TMAX:??36.7?C ??(Temporal Artery)?? HR:??93??(Peripheral)?? RR:??18?? BP:??159/93?? SpO2:??94%?? Pain Score:??1?? O2 Therapy:??Room air?? General: Oriented x4, obese, looks comfortable.?? HENT:??Normocephalic, clear tympanic membranes, normal hearing, moist oral mucosa, no scleral icterus, no sinus tenderness.?? Lungs:??Clear to auscultation and percussion, non-labored respiration.?? Heart:??Normal rate, regular rhythm, no murmur, gallop or edema. Abdomen: Good bowel sounds, no reproducible pain.?? Musculoskeletal:??Normal range of motion and strength, no tenderness or swelling. Skin:??Skin is warm, dry and pink, no rashes or lesions. Neurologic:??Awake, alert and oriented X4, CN I-XII intact Medications Inpatient Dextrose 50% injection, 25 g= 50 mL, IV Push, As Directed Dextrose 50% injection, 25 g= 50 mL, IV Push, As Directed docusate-senna 50 mg-8.6 mg oral tablet, 1 tab, Oral, BID Dulcolax Laxative, 10 mg= 1 supp, [place], Daily, PRN enoxaparin, 40 mg= 0.4 mL, Subcutaneous, Daily gabapentin, 600 mg= 2 cap, Oral, every evening glucagon, 1 mg= 1 EA, Subcutaneous, As Directed glucagon, 1 mg= 1 EA, Subcutaneous, As Directed insulin aspart Sliding Scale - Low Dose, Insulin Aspart Sliding Scale See Comment, Subcutaneous, AC insulin aspart Sliding Scale - Medium Dose, Insulin Aspart Sliding Scale See Comment, Subcutaneous,AC & bedtime Lactated Ringers Injection 1,000 mL, 1000 mL, IV lisinopril, 10 mg= 1 tab, Oral, every evening MiraLax, 17 g= 1 EA, Oral, Daily, PRN morphine, 2 mg= 1 mL, IV Push, every 3 hr, PRN naloxone, 0.1 mg= 0.25 mL, IV Push, every 5 min, PRN Normal Saline Flush, 10 mL, IV Flush, As Directed, PRN Plavix, 75 mg= 1 tab, Oral, every evening Protonix, 40 mg= 1 EA, IV Push, Daily Home aspirin 81 mg oral tablet, chewable, 81 mg= 1 tab, Chewed, every evening atorvastatin 40 mg oral tablet, 40 mg= 1 tab, Oral, every evening citalopram 10 mg oral tablet, 10 mg= 1 tab, Oral, every evening clopidogrel 75 mg oral tablet, 75 mg= 1 tab, Oral, every evening gabapentin 300 mg oral capsule, 600 mg= 2 cap, Oral, every evening ibuprofen 200 mg oral tablet, 600 mg= 3 tab, Oral, every 6 hr, PRN Insulin Lispro KwikPen 100 units/mL injectable solution, Subcutaneous, TID(AC) Levemir FlexTouch 100 units/mL subcutaneous solution, 30 units, Subcutaneous, every evening lisinopril 10 mg oral tablet, 10 mg= 1 tab, Oral, every evening Tylenol Extra Strength 500 mg oral tablet, 1000 mg= 2 tab, Oral, every 6 hr, PRN Procedure/Surgical History ???Stent placement Social History Alcohol Current, Beer, 1-2 times per month Electronic Cigarette/Vaping Electronic Cigarette Use: Never. Home/Environment Lives with Spouse. Living situation: Home/Independent. Tobacco Former tobacco user Tobacco Use:. 10-15 cigarettes a day per day. 7 year(s). Discharge Plan 1.??Diabetes??E11.9 The patient??will hold his Trulicity for now, supplement with a scale as discussed above. 2.??Heart attack??I21.9 Maintain current regimen 3.??High blood pressure??I10 Maintain current regimen including lisinopril. 4.??Pancreatitis??K85.90 Lipase within normal limits and eating and drinking without pain. ??He is ready for discharge. ??Regarding causation, general surgery evaluation??as an outpatient,??Trulicity held,??triglycerides mildly elevated, EP follow-up and??GI referral??if needed??as if general surgery consult is not??determined to be causation 5.??Cholelithiases??K80.20 General surgery follow-up. 6.??Fluid depletion??E86.9 Eating and drinking a full hearty breakfast.?? Low-fat diet magnesium rich, ADA 2200. ?? Date of patient care today is 40 minutes. Orders: insulin aspart Sliding Scale - Medium Dose, Insulin Aspart Sliding Scale See Comment, Subcutaneous,Soln, AC & bedtime, First Dose: 03/12/22 21:00:00 EST, Routine MiraLax, 17 g = 1 EA, Oral, Powder-Recon, Daily for 30 days, PRN constipation, First Dose: 03/12/2316:53:00 EST, Stop Date: 04/11/22 17:52:00 EST, Physician Stop, Routine Discharge Patient, 03/13/22 11:19:00 EST All Diagnoses This Visit Diabetes Heart attack High blood pressure Pancreatitis Cholelithiases Fluid depletion Patient Discharge Condition Stable. Discharge Disposition Home with PCP and general surgery follow-up. ??Return to the emergency room if pain resumes or unable to maintain p.o. intake. Patient Education Acute Pancreatitis, [id number] Follow Up With When Contact Information Follow up with primary care provider Within 1 week Additional Instructions: Laureen Resendez MD Within 1 to 2 weeks [address] [place] [address] Additional Instructions: Medication Reconciliation Unchanged acetaminophen (Tylenol Extra Strength 500 mg oral tablet)2 tab Oral (given by mouth) every 6 hours as needed as needed for pain. ?? aspirin (aspirin 81 mg oral tablet, chewable)1 tab Chewed every evening. ?? atorvastatin (atorvastatin 40 mg oral tablet)1 tab Oral (given by mouth) every evening. ?? citalopram (citalopram 10 mg oral tablet)1 tab Oral (given by mouth) every evening. ?? clopidogrel (clopidogrel 75 mg oral tablet)1 tab Oral (given by mouth) every evening. ?? gabapentin (gabapentin 300 mg oral capsule)2 Capsules Oral (given by mouth) every evening. ?? ibuprofen (ibuprofen 200 mg oral tablet)3 tab Oral (given by mouth) every 6 hours as needed as needed for pain. ?? insulin detemir (Levemir FlexTouch 100 units/mL subcutaneous solution)30 Units Subcutaneous (under the skin) every evening. ?? insulin lispro (Insulin Lispro KwikPen 100 units/mL injectable solution)Subcutaneous (under the skin) 3 times a day before meals. 20-50 units per SLIDING SCALE. ?? lisinopril (lisinopril 10 mg oral tablet)1 tab Oral (given by mouth) every evening. ?? Discontinued dulaglutide (Trulicity Pen 1.5 mg/0.5 mL subcutaneous solution)0.5 Milliliters Subcutaneous (under the skin) every week. On sundays. Electronically Signed on 03/13/22 11:31 AM Daniel Mills MD CT Abdomen and Pelvis W contrast IV * Denia Torres MD: VERIFY, VERIFY Event Display: Report PROCEDURE INFORMATION: Exam: CT Abdomen And Pelvis With Contrast Exam date and time: 03/11/2022 2:46 AM Age: 46 years old Clinical indication: Abdominal pain; Generalized TECHNIQUE: Imaging protocol: Computed tomography of the abdomen and pelvis with contrast. Radiation optimization: All CT scans at this facility use at least one of these dose optimization techniques: automated exposure control; mA and/or kV adjustment per patient size (includes targeted exams where dose is matched to clinical indication); or iterative reconstruction. Contrast material: ISOVUE 300; Contrast volume: 100 ml; Contrast route: INTRAVENOUS (IV); COMPARISON: CT ABD/PELVIS W CONTRAST 08/18/2020 12:51 PM FINDINGS: Coronary arteries: Mild calcifications are seen in the coronary arteries. Liver: Normal. No mass. Gallbladder and bile ducts: Normal. No calcified stones. No ductal dilation. Pancreas: Some subtle haziness seen adjacent to the pancreatic head, findings that could represent mild inflammatory changes and pancreatitis. Spleen: Normal. No splenomegaly. Adrenal glands: Normal. No mass. Kidneys and ureters: Normal. No hydronephrosis. Stomach and bowel: There are nondilated small bowel loops present proximally containing fluid, findings that could represent duodenal and jejunal ileus. Appendix: No evidence of appendicitis. Intraperitoneal space: Unremarkable. No free air. No significant fluid collection. Vasculature: Unremarkable. No abdominal aortic aneurysm. Lymph nodes: Unremarkable. No enlarged lymph nodes. Urinary bladder: Unremarkable as visualized. Reproductive: There are calcifications seen within the proximal ductus deferens bilaterally, findings that could be seen with diabetes. Other possibilities including tuberculosis, schistosomiasis, and chronic infections are considerations. Bones/joints: Unremarkable. No acute fracture. Soft tissues: Strandy opacities are seen in the perinephric fascia bilaterally likely representing chronic scarring. There is a small umbilical hernia present containing fat. IMPRESSION: 1. There is haziness seen adjacent to the pancreatic head, findings suggesting mild inflammatory changes and pancreatitis. There is adjacent mild dilatation and fluid present within the duodenum and jejunum possibly representing reactive duodenal and jejunal ileus. 2. Small umbilical hernia containing fat 3. Calcifications seen within the proximal ductus deferens bilaterally, most likely etiology is diabetes. THIS DOCUMENT HAS BEEN ELECTRONICALLY SIGNED BY DENIA TORRES MD on 03/11/2022 04:36 AM Final Signed by: Denia Torres MD Signed (Electronic Signature): 03/11/2022 4:36 am US Abdomen limited * Vahe Espinoza MD: VERIFY, VERIFY Event Display: Report EXAM DESCRIPTION: US Abdomen Limited 03/11/2022 INDICATION: RIGHT UPPER ABDOMINAL PAIN TECHNIQUE: Grayscale and color Doppler ultrasound examination of the right upper quadrant region of the abdomen. Examination is limited by abdominal pain elicited by transducer placement. This limited image acquisition. COMPARISON: CT abdomen/pelvis from 03/11/2022, 0246 hours FINDINGS: Liver measurement not well obtained secondary to study limitations described above. Visualized portions of the liver demonstrate diffusely increased echogenicity suggesting hepatic steatosis. No focal hepatic lesion identified in visualized portions of the liver. The main portal vein was not well assessed. No ascites in the right upper quadrant The pancreas is obscured by overlying bowel gas Echogenic, shadowing gallstones in the gallbladder. Gallbladder wall is borderline thickened measuring 3 mm. Small amount of pericholecystic fluid is suspected. No biliary dilatation with common bile duct diameter of 3 mm Positive sonographic Dickinson sign. Survey of the right kidney demonstrates no hydronephrosis. No right perinephric fluid collection. IMPRESSION: Mildly limited examination as described above Cholelithiasis. Mild gallbladder wall thickening with small amount of pericholecystic fluid suspected. No biliary dilatation. Positive sonographic Dickinson sign. Findings suggesting hepatic steatosis. JOB #: [id number] Final Signed by: Vahe Espinoza MD Signed (Electronic Signature): 03/11/2022 8:32 am
--- OUTSIDE RECORDS SUMMARY | 2024-01-04 13:05 | XMS_ITS | Continuity of Care Document ---
Author Organization [facility] Address [address] [place] [address] Care Team Providers Care Shaper Setter Name Role Phone MJ WILLS, MARIBETH Constantino Primary Care Physician [phone] Encounter [facility] FIN NBR [id number] Date(s): 07/08/22 - 07/08/[address] [address] Encounter Diagnosis Vomiting(Discharge Diagnosis) - 07/08/22 Hyperglycemia(Discharge Diagnosis) - 07/08/22 Discharge Disposition: Home or Self Care Attending Physician: Karlo Baker MD Admitting Physician: Kralo Baker MD Allergies, Adverse Reactions, Alerts Substance Reaction Severity Status melatonin Restless legs syndrome Unknown Activ e Diphendramine HCL Hyperactivity level Unknown Act nomi Functional Status 07/08/22 Other exposure to Infectious Disease Non e Medications !-Zofran ODT 4 mg oral tablet, disintegrating 4 mg = 1 tab, Oral, 6 times per day, PRN as needed for nausea/vomiting, # 16 tab, 0 Refill(s), Pharmacy: [id number], 177, cm, 07/08/22 14:39:00 EDT, Height/Length Dosing, 117.93, kg, 07/08/22 14:39:00 EDT, Weight Dosing Start Date: 07/08/22 Status: Ordered aspirin 81 mg oral tablet, [...] Results Laboratory List Name Date Urinalysis Microscopic 07/08/22 Urinalysis with Micro if Indicated and C ulture if Indicated 07/08/22 Basic Metabolic Panel (BMP) 07/08/22 Glucose POCT 07/08/22 .Manual Differential (LTTL) 07/08/22 CBC w/ Diff 07/08/22 Comprehensive Metabolic Panel (CMP) 07/08 Lipase Level 07/08/22 Most recent to oldest [Reference Range]: 1 2 WBC [4.8-10.8 K/mcL] 13.0 K/mcL *HI* (07/08/22 2:45 PM) RBC [4.20-6.10 Million/mcL] 5.87 Million /mcL (07/08/22 2:45 PM) Segs Man 69 *NA* (07/08/22 2:45 PM) Lymph Man [20.5-51.1 %] 2.0 % *LOW* (07/08/22 2:45 PM) Garfield Man [1.7-9.3 %] 3.0 % (07/08/22 2:45 PM) Eos Man [0.00-3.00 %] 0.00 % (07/08/22 2:45 PM) BUN [8-26 mg/dL] 52 mg/dL *HI* (07/08/22 5:45 PM) 52 mg/dL *HI* (07/08/22 2:45 PM) Glucose POC 400 *NA* (07/08/22 5:04 PM) UA Color [Yellow] Yellow (07/08/22 5:48 PM) UA WBC [0-3] 0-3 (07/08/22 5:48 PM) Glucose Level [74-106 mg/dL] 386 mg/dL *HI* (07/08/22 5:45 PM) 525 mg/dL 1 *CRIT* (07/08/22 2:45 PM) Potassium Level [3.5-5.1 mmol/L] 5.0 mmo l/L (07/08/22 5:45 PM) 5.3 mmol/L *HI* (07/08/22 2:45 PM) MCV [80.0-94.0 fL] 69.7 fL *LOW* (07/08/22 2:45 PM) UA Urobilinogen [0.2] 0.2 (07/08/22 5:48 PM) RBC Morph [Normal] Abnormal *ABN* (07/08/22 2:45 PM) UA Hyal Cast [0-3] 0-3 (07/08/22 5:48 PM) UA Bili [Negative] Negative (07/08/22 5:48 PM) UA Ketones [Negative] Negative (07/08/22 5:48 PM) AST [15-41 IntlUnit/L] 23 IntlUnit/L (07/08/22 2:45 PM) ALT [17-63 IntlUnit/L] 23 IntlUnit/L (07/08/22 2:45 PM) MCHC [32.0-36.0 g/dL] 29.1 g/dL *LOW* (07/08/22 2:45 PM) Osmolality [275-295 mOsm/kg] 300 mOsm/kg *HI* (07/08/22 5:45 PM) 300 mOsm/kg *HI* (07/08/22 2:45 PM) Sodium Level [134-143 mmol/L] 135 mmol/L (07/08/22 5:45 PM) 131 mmol/L *LOW* (07/08/22 2:45 PM) UA RBC [0-3] 0-3 (07/08/22 5:48 PM) UA Leuk Est [Negative] Negative (07/08/22 5:48 PM) UA Nitrite [Negative] Negative (07/08/22 5:48 PM) UA Glucose [Negative] >=1000 *ABN* (07/08/22 5:48 PM) Hct [42.0-52.0 %] 40.9 % *LOW* (07/08/22 2:45 PM) Microcyte 3+ *ABN* (07/08/22 2:45 PM) UA Bacteria Rare *NA* (07/08/22 5:48 PM) Lipase Level [18-51 unit/L] 25 unit/L (07/08/22 2:45 PM) Hypochromia 1+ *ABN* (07/08/22 2:45 PM) Calcium Level [8.9-10.3 mg/dL] 7.8 mg/dL *LOW* (07/08/22 5:45 PM) 8.4 mg/dL *LOW* (07/08/22 2:45 PM) Albumin Level [3.5-5.0 g/dL] 3.2 g/dL *LOW* (07/08/22 2:45 PM) Protein Total [6.5-8.1 g/dL] 6.9 g/dL (07/08/22 2:45 PM) UA Protein [Negative] >=300 *ABN* (07/08/22 5:48 PM) MCH [27.0-31.0 pg] 20.3 pg *LOW* (07/08/22 2:45 PM) Bilirubin Total [0.2-1.2 mg/dL] 1.1 mg/d L (07/08/22 2:45 PM) Hgb [14.0-18.0 g/dL] 11.9 g/dL *LOW* (07/08/22 2:45 PM) Alk Phos [38-130 IntlUnit/L] 70 IntlUnit /L (07/08/22 2:45 PM) UA Blood [Negative] Small *ABN* (07/08/22 5:48 PM) MPV [7.4-10.4 fL] 11.7 fL *HI* (07/08/22 2:45 PM) Band Man 26 % *NA* (07/08/22 2:45 PM) UA Spec Grav 1.025 *NA* (07/08/22 5:48 PM) Platelets [130-400 K/mcL] 236 K/mcL (07/08/22 2:45 PM) CO2 [22-32 mmol/L] 22 mmol/L (07/08/22 5:45 PM) 19 mmol/L *LOW* (07/08/22 2:45 PM) UA pH 5.50 *NA* (07/08/22 5:48 PM) UA Appear [Clear] Clear (07/08/22 5:48 PM) Chloride Level [98-111 mmol/L] 105 mmol/ L (07/08/22 5:45 PM) 101 mmol/L (07/08/22 2:45 PM) RDW-CV [11.5-14.5 %] 19.5 % *HI* (07/08/22 2:45 PM) A/G Ratio 0.9 *NA* (07/08/22 2:45 PM) BUN/Creat Ratio [8.0-20.0] 22.5 *HI* (07/08/22 5:45 PM) 21.1 *HI* (07/08/22 2:45 PM) Globulin 3.7 *NA* (07/08/22 2:45 PM) Slide Review Man Diff (07/08/22 2:45 PM) UA Culture Ind?. [No] Yes (07/08/22 5:48 PM) Urine Srce Clean Catch (07/08/22 5:48 PM) UA Amorph [None Seen] Few *ABN* (07/08/22 5:48 PM) Abs Baso Man [0.0-0.2 K/mcL] 0.0 K/mcL (07/08/22 2:45 PM) Abs Eos Man [0.0-0.2 K/mcL] 0.0 K/mcL (07/08/22 2:45 PM) Abs Lymph Man [1.2-3.4 K/mcL] 0.3 K/mcL *LOW* (07/08/22 2:45 PM) Abs Garfield Man [0.1-0.6 K/mcL] 0.4 K/mcL (07/08/22 2:45 PM) Abs Neut Man [1.4-6.5 K/mcL] 12.4 K/mcL *HI* (07/08/22 2:45 PM) Anisocyte 2+ (07/08/22 2:45 PM) Creatinine Level [0.61-1.24 mg/dL] 2.31 mg/dL *HI* (07/08/22 5:45 PM) 2.46 mg/dL *HI* (07/08/22 2:45 PM) Plt Estimation Normal (07/08/22 2:45 PM) Anion Gap [3.0-12.0] 8.0 (07/08/22 5:45 PM) 11.0 (07/08/22 2:45 PM) Baso Man [0.0-0.8 %] 0.0 % (07/08/22 2:45 PM) eGFR CKD-EPI [>=60 mL/min/1.73 m2] 35 mL /min/1.73 m2 *LOW* (07/08/22 5:45 PM) 32 mL/min/1.73 m2 *LOW* (07/08/22 2:45 PM) 1Result Comment: Called to and read back by ish solitario at 07/08/2022 16:07:12 EDT [email or web address] Results verified by repeat analysis. Orders for Microbiology Reports Name Date Urine Culture 07/08/22 Microbiology Reports TEST:Urine Culture STATUS:Order in Progress BODY SITE: SOURCE:Urine, Clean Catch COLLECTED DATE/TIME:07/08/22 5:48 PM PRELIMINARY REPORT No growth of uropathogens Vital Signs Most recent to oldest [Reference Range]: 1 2 Temperature Temporal Artery [36-38 Deg C ] 36.2 Deg C (07/08/22 2:12 PM) Peripheral Pulse Rate [60-100 bpm] 104 b pm *HI* (07/08/22 5:09 PM) 120 bpm *HI* (07/08/22 2:12 PM) Respiratory Rate [12-24 br/min] 18 br/mi n (07/08/22 5:09 PM) 20 br/min (07/08/22 2:12 PM) Blood Pressure [90-140/60-90 mmHg] 104/5 8mmHg (07/08/22 5:09 PM) 98/69mmHg (07/08/22 2:12 PM) Weight 117.93 kg (07/08/22 2:12 PM) Weight Dosing 117.93 kg (07/08/22 2:39 PM) Height 177.000 cm (07/08/22 2:12 PM) Height/Length Dosing 177.000 cm (07/08/22 2:39 PM) Body Mass Index 38.000 kg/m2 (07/08/22 2:12 PM) Social History Social History Type Response Tobacco Former tobacco user Tobacco Use:. 10-15 cigarettes a day per day. 7 year(s). Sex Hospital Discharge Instructions Patient Education 07/08/2022 17:56:42 Hyperglycemia Hyperglycemia Hyperglycemia occurs when the level of sugar (glucose) in the blood is too high. Glucose is a type of sugar that provides the body's main source of energy. Certain hormones (insulin and glucagon) control the level of glucose in the blood. Insulin lowers blood glucose, and glucagon increases blood glucose. Hyperglycemia can result from not having enough insulin in the bloodstream, or from the bodynot responding normally to insulin. Hyperglycemia occurs most often in people who have diabetes (diabetes mellitus), but it can happen in people who do not have diabetes. It can develop quickly, and it can be life-threatening if it causes you to become severely dehydrated (diabetic ketoacidosis or hyperglycemic hyperosmolar state). Severe hyperglycemia is a medical emergency. For most people with diabetes, a blood glucose level above 240 mg/dL is considered hyperglycemia. What are the causes? If you have diabetes, hyperglycemia may be caused by: ??? Medicines that increase blood glucose or affect your diabetes control. ??? Getting less physical activity. ??? Eating more than planned. ??? Being sick or injured, having an infection, or having surgery. ??? Stress. ??? Not giving yourself enough insulin (if you are taking insulin). If you have undiagnosed diabetes, this may be the reason you have hyperglycemia. If you do not have diabetes, hyperglycemia may be caused by: ??? Certain medicines, including: ??? Steroid medicines. ??? Beta-blockers. ??? Epinephrine. ??? Thiazide diuretics. ??? Stress. ??? Having a serious illness, an infection, or surgery. ??? Diseases of the pancreas. What increases the risk? Hyperglycemia is more likely to develop in people who have risk factors for diabetes, such as: ??? Having a family member with diabetes. ??? Certain conditions in which the body's disease-fighting system (immune system) attacks itself (autoimmune disorders). ??? Being overweight or obese. ??? Having an inactive (sedentary) lifestyle. ??? Having been diagnosed with insulin resistance. ??? Having a history of prediabetes, gestational diabetes, or polycystic ovarian syndrome (PCOS). What are the signs or symptoms? Hyperglycemia may not cause any symptoms. If you do have symptoms, they may include: ??? Increased thirst. ??? Needing to urinate more often than usual. ??? Hunger. ??? Feeling very tired. ??? Blurry vision. Other symptoms may develop if hyperglycemia gets worse, such as: ??? Dry mouth. ??? Abdominal pain. ??? Loss of appetite. ??? Fruity-smelling breath. ??? Weakness. ??? Unexpected weight loss. ??? Tingling or numbness in the hands or feet. ??? Headache. ??? Cuts or bruises that are slow to heal. How is this diagnosed? Hyperglycemia is diagnosed with a blood test to measure your blood glucose level. This blood test is usually done while you are having symptoms. Your health care provider may also do a physical exam and review your medical history. You may have more tests to determine the cause of your hyperglycemia, such as: ??? A fasting blood glucose (FBG) test. You will not be allowed to eat (you will fast) for at least8 hours before a blood sample is taken. ??? An A1C blood test. This provides information about blood glucose control over the previous 2???3 months. ??? An oral glucose tolerance test (OGTT). This measures your blood glucose at two times: ??? After fasting. This is your baseline blood glucose level. ??? 2 hours after drinking a beverage that contains glucose. How is this treated? Treatment depends on the cause of your hyperglycemia. Treatment may include: ??? Taking medicine to regulate your blood glucose levels. If you take insulin or other diabetes medicines, your medicine or dosage may be adjusted. ??? Lifestyle changes, such as exercising more, eating healthier foods, or losing weight. ??? Treating an illness or infection. ??? Checking your blood glucose more often. ??? Stopping or reducing steroid medicines. If your hyperglycemia becomes severe and it results in diabetic ketoacidosis or hyperglycemic hyperosmolar state, you must be hospitalized and given IV fluids and IV insulin. Follow these instructions at home: General instructions ??? Take aomp-huv-aezegdi and prescription medicines only as told by your health care provider. ??? Do not use any products that contain nicotine or tobacco. These products include cigarettes, chewing tobacco, and vaping devices, such as e-cigarettes. If you need help quitting, ask your health care provider. ??? If you drink alcohol: ??? Limit how much you have to: ??? 0???1 drink a day for women who are not . ??? 0???2 drinks a day for men. ??? Know how much alcohol is in a drink. In the [place] one drink equals one 12 oz bottle of beer (355 mL), one 5 oz glass of wine (148 mL), or one 1?? oz glass of hard liquor (44 mL). ??? Learn to manage stress. If you need help with this, ask your health care provider. ??? Do exercises as told by your health care provider. ??? Keep all follow-up visits. This is important. Eating and drinking ??? Maintain a healthy weight. ??? Stay hydrated, especially when you exercise, get sick, or spend time in hot temperatures. ??? Drink enough fluid to keep your urine pale yellow. If you have diabetes: ??? Know the symptoms of hyperglycemia. ??? Follow your diabetes management plan as told by your health care provider. Make sure you: ??? Take your insulin and medicines as told. ??? Follow your exercise plan. ??? Follow your meal plan. Eat on time, and do not skip meals. ??? Check your blood glucose as often as told. Make sure to check your blood glucose before and after exercise. If you exercise longer or in a different way, check your blood glucose more often. ??? Follow your sick day plan whenever you cannot eat or drink normally. Make this plan in advance with your health care provider. ??? Share your diabetes management plan with people in your workplace, school, and household. ??? Check your urine for ketones when you are ill and as told by your health care provider. ??? Carry a medical alert card or wear medical alert jewelry. Where to find more information [place] [employer]: www.diabetes.org Contact a health care provider if: ??? Your blood glucose is at or above 240 mg/dL (13.3 mmol/L) for 2 days in a row. ??? You have problems keeping your blood glucose in your target range. ??? You have frequent episodes of hyperglycemia. ??? You have signs of illness, such as nausea, vomiting, or fever. Get help right away if: ??? Your blood glucose monitor reads high even when you are taking insulin. ??? You have trouble breathing. ??? You have a change in how you think, feel, or act (mental status). ??? You have nausea or vomiting that does not go away. These symptoms may represent a serious problem that is an emergency. Do not wait to see if the symptoms will go away. Get medical help right away. Call your local emergency services (911 in the [place] Do not drive yourself to the hospital. Summary ??? Hyperglycemia occurs when the level of sugar (glucose) in the blood is too high. ??? Hyperglycemia can happen with or without diabetes, and severe hyperglycemia can be life-threatening. ??? Hyperglycemia is diagnosed with a blood test to measure your blood glucose level. This blood test is usually done while you are having symptoms. Your health care provider may also do a physical exam and review your medical history. ??? If you have diabetes, follow your diabetes management plan as told by your health care provider. ??? Contact your health care provider if you have problems keeping your blood glucose in your target range. This information is not intended to replace advice given to you by your health care provider. Make sure you discuss any questions you have with your health care provider. Document Revised: 11/20/2020 Document Reviewed: 11/20/2020 [employer] Patient Education ?? 2021 [employer]. 07/08/2022 17:56:37 Nausea, Adult Nausea, Adult Nausea is the feeling that you have an upset stomach or that you are about to vomit. Nausea on its own is not usually a serious concern, but it may be an early sign of a more serious medical problem.As nausea gets worse, it can lead to vomiting. If vomiting develops, or if you are not able to drink enough fluids, you are at risk of becoming dehydrated. Dehydration can make you tired and thirsty,cause you to have a dry mouth, and decrease how often you urinate. Older adults and people with other diseases or a weak disease-fighting system (immune system) are at higher risk for dehydration. The main goals of treating your nausea are: ??? To relieve your nausea. ??? To limit repeated nausea episodes. ??? To prevent vomiting and dehydration. Follow these instructions at home: Watch your symptoms for any changes. Tell your health care provider about them. Follow these instructions as told by your health care provider. Eating and drinking ??? Take an oral rehydration solution (ORS). This is a drink that is sold at pharmacies and retail stores. ??? Drink clear fluids slowly and in small amounts as you are able. Clear fluids include water, icechips, low-calorie sports drinks, and fruit juice that has water added (diluted fruit juice). ??? Eat bland, yjkk-wn-bygnhe foods in small amounts as you are able. These foods include bananas, applesauce, rice, lean meats, toast, and crackers. ??? Avoid drinking fluids that contain a lot of sugar or caffeine, such as energy drinks, sports drinks, and soda. ??? Avoid alcohol. ??? Avoid spicy or fatty foods. General instructions ??? Take zgzk-vjk-geazgof and prescription medicines only as told by your health care provider. ??? Rest at home while you recover. ??? Drink enough fluid to keep your urine pale yellow. ??? Breathe slowly and deeply when you feel nauseous. ??? Avoid smelling things that have strong odors. ??? Wash your hands often using soap and water. If soap and water are not available, use hand patch press operator. ??? Make sure that all people in your household wash their hands well and often. ??? Keep all follow-up visits as told by your health care provider. This is important. Contact a health care provider if: ??? Your nausea gets worse. ??? Your nausea does not go away after two days. ??? You vomit. ??? You cannot drink fluids without vomiting. ??? You have any of the following: ??? New symptoms. ??? A fever. ??? A headache. ??? Muscle cramps. ??? A rash. ??? Pain while urinating. ??? You feel light-headed or dizzy. Get help right away if: ??? You have pain in your chest, neck, arm, or jaw. ??? You feel extremely weak or you faint. ??? You have vomit that is bright red or looks like coffee grounds. ??? You have bloody or black stools or stools that look like tar. ??? You have a severe headache, a stiff neck, or both. ??? You have severe pain, cramping, or bloating in your abdomen. ??? You have difficulty breathing or are breathing very quickly. ??? Your heart is beating very quickly. ??? Your skin feels cold and clammy. ??? You feel confused. ??? You have signs of dehydration, such as: ??? Dark urine, very little urine, or no urine. ??? Cracked lips. ??? Dry mouth. ??? Sunken eyes. ??? Sleepiness. ??? Weakness. These symptoms may represent a serious problem that is an emergency. Do not wait to see if the symptoms will go away. Get medical help right away. Call your local emergency services (911 in the [place] Do not drive yourself to the hospital. Summary ??? Nausea is the feeling that you have an upset stomach or that you are about to vomit. Nausea on its own is not usually a serious concern, but it may be an early sign of a more serious medical problem. ??? If vomiting develops, or if you are not able to drink enough fluids, you are at risk of becoming dehydrated. ??? Follow recommendations for eating and drinking and take vlfn-jlg-pkrhkag and prescription medicines only as told by your health care provider. ??? Contact a health care provider right away if your symptoms worsen or you have new symptoms. ??? Keep all follow-up visits as told by your health care provider. This is important. This information is not intended to replace advice given to you by your health care provider. Make sure you discuss any questions you have with your health care provider. Document Revised: 04/28/2021 Document Reviewed: 07/17/2018 [employer] Patient Education ?? 2021 [employer]. Physician Emergency department Note * Karlo Baker MD: PERFORM Event Display: ED Note Physician Authored Date: [id number] SHOSHANA SALGADO :1975 Age:46 years Sex:Male Visit Date:07/08/2022 Primary Care Physician: MARIBETH BARKER MD Basic Information Time Seen: Karlo Baker MD / 07/08/2022 14:33 Chief Complaint Nausea, vomiting, diarrhea since last night. Unable to keep anything. Hx pancreatitis. Denies any known sick contacts. History Of Present Illness: Patient comes in stating she has been having vomiting and diarrhea since last night with abdominal cramping. ??He denies any??sick contacts??or questionable food ingestion. Review of Systems: Review of systems negative other than that stated above Physical Exam Vitals & Measurements T:??36.2?C ??(Temporal Artery)?? HR:??104??(Peripheral)?? RR:??18?? BP:??104/58?? SpO2:??98%?? HT:??177.000??cm?? WT:??117.93??kg?? BMI:??38.000?? O2 Therapy:??Room air?? General: Alert and oriented, well nourished, no acute distress. Eye: PERRL, EOMI, normal conjunctiva. HENT: Normocephalic,??normal hearing, moist oral mucosa, no scleral icterus, . Neck: Supple, non-tender, no carotid bruits, no JVD, no lymphadenopathy. No rigidity Lungs: Clear to auscultation and percussion, non-labored respiration. Heart: Normal rate, regular rhythm, no murmur, gallop or edema. Abdomen: Soft, mild epigastric tenderness, non-distended, normal bowel sounds, no masses. Musculoskeletal: Normal range of motion and strength, no tenderness or swelling. Skin: Skin is warm, dry and appropriate for ethnicity, no rashes or lesions. Neurologic: Awake, alert and oriented X4, CN II-XII intact. Psychiatric: Cooperative, appropriate mood and affect. Procedure No Qualifying Data Reexamination/Reevaluation Patient given IV fluids and Zofran. ??He slept for several hours and after??waking him he states hefeels much better and wishes to go home. ??We did repeat??chemistries which shows that his BUN is??unchanged but creatinine??decreased slightly. ??His??glucose did decrease after insulin as well.?? Idid discuss with him that??looking over the??labs recently??it appears he has progressively worsening??kidney disease. ??He states his doctor is aware of it.?? We discussed whether or not he should be admitted for IV fluids??and Zofran??with glucose control overnight??or can he be discharged. ??Jasmine ent??wishes to be discharged. ??I feel that??I think he is appropriate??and as his creatinine did decrease slightly after IV fluids??given the history with vomiting for several days without evidence of DKA??I feel that??with further hydration??anticipate??the patient not having worsening BUN and creatinine??in the next several days.?? He will be discharged with Zofran. ??He will stay hydrated usea bland diet advance as tolerated. ??Check sugars often and treat accordingly??but??as it is I told him on Monday morning to call his doctor??because of my peeing he should have??repeat blood work??to follow-up on his??kidney function??for further evaluation. ??In the meantime he will return here??should he have??problems with??sugar control or nausea and vomiting or lack of??hydration. ??He understands this and appreciates going home. Assessment/Plan 1.??Vomiting??R11.10 2.??Hyperglycemia??R73.9 Orders: insulin regular 100 units/mL human recombinant injectable solution, 12 units = 0.12 mL, IV Push, Soln, Daily for 30 days, First Dose: 07/08/22 16:13:00 EDT, Stop Date: 08/07/22 8:59:00 EDT, PhysicianStop !-Zofran ODT 4 mg oral tablet, disintegrating, 4 mg = 1 tab, Oral, 6 times per day, PRN as needed for nausea/vomiting, # 16 tab, 0 Refill(s), Pharmacy: [id number], 177, cm, 07/08/22 14:39:00 EDT, Height/Length Dosing, 117.93, kg, 07/08/22 14:39:00 EDT, Weight Dosing !-Zofran, 4 mg = 1 tab, Oral, Tab-Dis, every 6 hr for 30 days, PRN nausea/vomiting, First Dose: 07/08/22 18:55:00 EDT, Stop Date: 08/07/22 18:54:00 EDT, Physician Stop Discharge Patient, 07/08/22 18:54:00 EDT Urine Culture, U CleanCatch, Stat collect, ST - Stat, 07/08/22 16:07:00 EDT, Once, Nurse collect, Collected, 07/08/22 17:48:00 EDT, Print Label, [id number] Patient Education Hyperglycemia Nausea, Adult Medication Reconciliation New Prescription ondansetron (!-Zofran ODT 4 mg oral tablet, disintegrating)1 tab Oral (given by mouth) 6 times per day as needed as needed for nausea/vomiting. Refills: 0. ?? Unchanged aspirin (aspirin 81 mg oral tablet, chewable)1 [...] Sodium Chloride 0.9%, 1000 mL, IV Bolus Sodium Chloride 0.9%, 1000 mL, IV Bolus !-Zofran, 4 mg, IV Push !-Zofran, 4 mg, Oral insulin regular 100 units/mL human recombinant injectable solution, 12 units, IV Push Allergies Diphendramine HCL??(Hyperactivity level) melatonin??(Restless legs syndrome) Social History Alcohol Current, Beer, 1-2 times per month Electronic Cigarette/Vaping Electronic Cigarette Use: Never. Home/Environment Lives with Spouse. Living situation: Home/Independent. Tobacco Former tobacco user Tobacco Use:. 10-15 cigarettes a day per day. 7 year(s). Lab Results CBC and Differential?? LATEST RESULTS?? HISTORICAL RESULTS?? WBC?? 07/08/22 14:45?? 13.0 ??High?? 03/24/22?? 9.3?? RBC?? 07/08/22 14:45?? 5.87?? 03/24/22?? 5.39?? Hgb?? 07/08/22 14:45?? 11.9 ??Low?? 03/24/22?? 10.9 ??Low?? Hct?? 07/08/22 14:45?? 40.9 ??Low?? 03/24/22?? 36.9 ??Low?? MCV?? 07/08/22 14:45?? 69.7 ??Low?? 03/24/22?? 68.5 ??Low?? MCH?? 07/08/22 14:45?? 20.3 ??Low?? 03/24/22?? 20.2 ??Low?? MCHC?? 07/08/22 14:45?? 29.1 ??Low?? 03/24/22?? 29.5 ??Low?? RDW-CV?? 07/08/22 14:45?? 19.5 ??High?? 03/24/22?? 18.6 ??High?? Platelets?? 07/08/22 14:45?? 236?? 03/24/22?? 338?? MPV?? 07/08/22 14:45?? 11.7 ??High?? 03/24/22?? 11.3 ??High?? Segs Man?? 07/08/22 14:45?? 69? Lymph Man?? 07/08/22 14:45?? 2.0 ??Low? Garfield Man?? 07/08/22 14:45?? 3.0? Eos Man?? 07/08/22 14:45?? 0.00? Baso Man?? 07/08/22 14:45?? 0.0? Band Man?? 07/08/22 14:45?? 26? Abs Neut Man?? 07/08/22 14:45?? 12.4 ??High? Abs Lymph Man?? 07/08/22 14:45?? 0.3 ??Low? Abs Garfield Man?? 07/08/22 14:45?? 0.4? Abs Eos Man?? 07/08/22 14:45?? 0.0? Abs Baso Man?? 07/08/22 14:45?? 0.0? RBC Morph?? 07/08/22 14:45?? Abnormal Abnormal?? 03/24/22?? Abnormal Abnormal?? Anisocyte?? 07/08/22 14:45?? 2+?? 03/24/22?? 2+?? Hypochromia?? 07/08/22 14:45?? 1+ Abnormal?? 03/24/22?? 1+ Abnormal?? Microcyte?? 07/08/22 14:45?? 3+ Abnormal?? 03/24/22?? 2+ Abnormal?? Plt Estimation?? 07/08/22 14:45?? Normal?? 03/24/22?? Normal?? Slide Review?? 07/08/22 14:45?? Man Diff?? 03/24/22?? Morph Only? Routine Chemistry?? LATEST RESULTS?? HISTORICAL RESULTS?? Sodium Level?? 07/08/22 17:45?? 135?? 03/24/22?? 134?? Potassium Level?? 07/08/22 17:45?? 5.0?? 03/24/22?? 4.8?? Chloride Level?? 07/08/22 17:45?? 105?? 03/24/22?? 101?? CO2?? 07/08/22 17:45?? 22?? 03/24/22?? 27?? Alk Phos?? 07/08/22 14:45?? 70?? 03/24/22?? 82?? AST?? 07/08/22 14:45?? 23?? 03/24/22?? 20?? ALT?? 07/08/22 14:45?? 23?? 03/24/22?? 29?? BUN?? 07/08/22 17:45?? 52 ??High?? 03/24/22?? 30 ??High?? Glucose Level?? 07/08/22 17:45?? 386 ??High?? 03/24/22?? 265 ??High?? Creatinine Level?? 07/08/22 17:45?? 2.31 ??High?? 03/24/22?? 1.43 ??High?? BUN/Creat Ratio?? 07/08/22 17:45?? 22.5 ??High?? 03/24/22?? 21.0 ??High?? Calcium Level?? 07/08/22 17:45?? 7.8 ??Low?? 03/24/22?? 9.1?? Protein Total?? 07/08/22 14:45?? 6.9?? 03/24/22?? 6.5?? Albumin Level?? 07/08/22 14:45?? 3.2 ??Low?? 03/24/22?? 3.3 ??Low?? Globulin?? 07/08/22 14:45?? 3.7?? 03/24/22?? 3.2?? A/G Ratio?? 05/19/23 14:45?? 0.9?? 03/24/22?? 1.0?? Bilirubin Total?? 07/08/22 14:45?? 1.1?? 03/24/22?? 0.5?? Anion Gap?? 07/08/22 17:45?? 8.0?? 03/24/22?? 6.0?? Lipase Level?? 07/08/22 14:45?? 25?? 03/13/22?? 42?? Osmolality?? 07/08/22 17:45?? 300 ??High?? 03/24/22?? 284?? Glucose POC?? 07/08/22 17:04?? 400?? 03/13/22?? 278?? eGFR CKD-EPI?? 07/08/22 17:45?? 35 ??Low?? 03/24/22?? 62? UA Macroscopic?? LATEST RESULTS?? Urine Srce?? 07/08/22 17:48?? Clean Catch?? UA Color?? 07/08/22 17:48?? Yellow?? UA Appear?? 07/08/22 17:48?? Clear?? UA Glucose?? 07/08/22 17:48?? >=1000 Abnormal?? UA Bili?? 07/08/22 17:48?? Negative?? UA Ketones?? 07/08/22 17:48?? Negative?? UA Spec Grav?? 07/08/22 17:48?? 1.025?? UA Blood?? 07/08/22 17:48?? Small Abnormal?? UA pH?? 07/08/22 17:48?? 5.50?? UA Protein?? 07/08/22 17:48?? >=300 Abnormal?? UA Urobilinogen?? 07/08/22 17:48?? 0.2?? UA Nitrite?? 07/08/22 17:48?? Negative?? UA Leuk Est?? 07/08/22 17:48?? Negative?? UA Culture Ind?.?? 07/08/22 17:48?? Yes? UA Microscopic?? LATEST RESULTS?? UA WBC?? 07/08/22 17:48?? 0-3?? UA RBC?? 07/08/22 17:48?? 0-3?? UA Bacteria?? 07/08/22 17:48?? Rare?? UA Amorph?? 07/08/22 17:48?? Few Abnormal?? UA Hyal Cast?? 07/08/22 17:48?? 0-3? Electronically Signed on 07/08/22 07:46 PM Karlo Baker MD Emergency department Discharge instructions * Karlo Baker MD: PERFORM Event Display: ED Discharge Information Authored Date: [id number] SHOSHANA SALGADO :1975 Age:46 years Sex:Male Visit Date:07/08/2022 Primary Care Physician: MARIBETH BARKER MD Discharge Instructions We would like to thank you for allowing us to assist you with your healthcare needs. The following includes patient education materials and information regarding your injury/illness. Diagnosis from Today's Visit Vomiting Hyperglycemia Discharge Vitals Temperature??(Temporal Artery) 97.2 ??F (36.2 ??C) Heart Rate??(Peripheral) 104 Respiratory Rate?? 18 Blood Pressure?? 104/58?? Height?? 69.69 in (177.000 cm) Weight?? 260.04 lb (117.93 kg) BMI?? 38.000 Allergies Diphendramine HCL??(Hyperactivity level) melatonin??(Restless legs syndrome) What to Do Next Instructions from Your Care Team Stay hydrated. ??Zofran as prescribed for nausea and vomiting.?? Check sugars often and treat accordingly. ??Follow-up with regular doctor within 2 to 3 days??for repeat??kidney function??and blood sugar testing. ??Return to ED for worsening symptoms You were treated today on an emergency [...] Emergency Department. Medications What How Much When Instructions Next Dose New ondansetron (!-Zofran ODT 4 mg oral tablet, disintegrating) 1 tab Oral (given by mouth) 6 times per day as needed for as needed for nausea/vomiting Pickup at [facility] [address] Unchanged aspirin (aspirin 81 mg oral tablet, [...] (given by mouth) Every evening Pharmacy Information [place] [id number]: [address], [place] [id number] [phone] Education Materials Hyperglycemia Hyperglycemia occurs when the level of sugar (glucose) in the blood is too high. Glucose is a type of sugar that provides the body's main source of energy. Certain hormones (insulin and glucagon) control the level of glucose in the blood. Insulin lowers blood glucose, and glucagon increases blood glucose. Hyperglycemia can result from not having enough insulin in the bloodstream, or from the bodynot responding normally to insulin. Hyperglycemia occurs most often in people who have diabetes (diabetes mellitus), but it can happen in people who do not have diabetes. It can develop quickly, and it can be life-threatening if it causes you to become severely dehydrated (diabetic ketoacidosis or hyperglycemic hyperosmolar state). Severe hyperglycemia is a medical emergency. For most people with diabetes, a blood glucose level above 240 mg/dL is considered hyperglycemia. What are the causes? If you have diabetes, hyperglycemia may be caused by: ? Medicines that increase blood glucose or affect your diabetes control. ? Getting less physical activity. ? Eating more than planned. ? Being sick or injured, having an infection, or having surgery. ? Stress. ? Not giving yourself enough insulin (if you are taking insulin). If you have undiagnosed diabetes, this may be the reason you have hyperglycemia. If you do not have diabetes, hyperglycemia may be caused by: ? Certain medicines, including: ? Steroid medicines. ? Beta-blockers. ? Epinephrine. ? Thiazide diuretics. ? Stress. ? Having a serious illness, an infection, or surgery. ? Diseases of the pancreas. What increases the risk? Hyperglycemia is more likely to develop in people who have risk factors for diabetes, such as: ? Having a family member with diabetes. ? Certain conditions in which the body's disease-fighting system (immune system) attacks itself (autoimmune disorders). ? Being overweight or obese. ? Having an inactive (sedentary) lifestyle. ? Having been diagnosed with insulin resistance. ? Having a history of prediabetes, gestational diabetes, or polycystic ovarian syndrome (PCOS). What are the signs or symptoms? Hyperglycemia may not cause any symptoms. If you do have symptoms, they may include: ? Increased thirst. ? Needing to urinate more often than usual. ? Hunger. ? Feeling very tired. ? Blurry vision. Other symptoms may develop if hyperglycemia gets worse, such as: ? Dry mouth. ? Abdominal pain. ? Loss of appetite. ? Fruity-smelling breath. ? Weakness. ? Unexpected weight loss. ? Tingling or numbness in the hands or feet. ? Headache. ? Cuts or bruises that are slow to heal. How is this diagnosed? Hyperglycemia is diagnosed with a blood test to measure your blood glucose level. This blood test is usually done while you are having symptoms. Your health care provider may also do a physical exam and review your medical history. You may have more tests to determine the cause of your hyperglycemia, such as: ? A fasting blood glucose (FBG) test. You will not be allowed to eat (you will fast) for at least 8 hours before a blood sample is taken. ? An A1C blood test. This provides information about blood glucose control over the previous 2???3 months. ? An oral glucose tolerance test (OGTT). This measures your blood glucose at two times: ? After fasting. This is your baseline blood glucose level. ? 2 hours after drinking a beverage that contains glucose. How is this treated? Treatment depends on the cause of your hyperglycemia. Treatment may include: ? Taking medicine to regulate your blood glucose levels. If you take insulin or other diabetes medicines, your medicine or dosage may be adjusted. ? Lifestyle changes, such as exercising more, eating healthier foods, or losing weight. ? Treating an illness or infection. ? Checking your blood glucose more often. ? Stopping or reducing steroid medicines. If your hyperglycemia becomes severe and it results in diabetic ketoacidosis or hyperglycemic hyperosmolar state, you must be hospitalized and given IV fluids and IV insulin. Follow these instructions at home: General instructions ? Take ppxw-saa-seomgfk and prescription medicines only as told by your health care provider. ? Do not use any products that contain nicotine or tobacco. These products include cigarettes, chewing tobacco, and vaping devices, such as e-cigarettes. If you need help quitting, ask your health careprovider. ? If you drink alcohol: ? Limit how much you have to: ? 0???1 drink a day for women who are not . ? 0???2 drinks a day for men. ? Know how much alcohol is in a drink. In the [place] one drink equals one 12 oz bottle of beer (355 mL), one 5 oz glass of wine (148 mL), or one 1?? oz glass of hard liquor (44 mL). ? Learn to manage stress. If you need help with this, ask your health care provider. ? Do exercises as told by your health care provider. ? Keep all follow-up visits. This is important. Eating and drinking ? Maintain a healthy weight. ? Stay hydrated, especially when you exercise, get sick, or spend time in hot temperatures. ? Drink enough fluid to keep your urine pale yellow. If you have diabetes: ? Know the symptoms of hyperglycemia. ? Follow your diabetes management plan as told by your health care provider. Make sure you: ? Take your insulin and medicines as told. ? Follow your exercise plan. ? Follow your meal plan. Eat on time, and do not skip meals. ? Check your blood glucose as often as told. Make sure to check your blood glucose before and after exercise. If you exercise longer or in a different way, check your blood glucose more often. ? Follow your sick day plan whenever you cannot eat or drink normally. Make this plan in advance withyour health care provider. ? Share your diabetes management plan with people in your workplace, school, and household. ? Check your urine for ketones when you are ill and as told by your health care provider. ? Carry a medical alert card or wear medical alert jewelry. Where to find more information [place] [employer]: www.diabetes.org Contact a health care provider if: ? Your blood glucose is at or above 240 mg/dL (13.3 mmol/L) for 2 days in a row. ? You have problems keeping your blood glucose in your target range. ? You have frequent episodes of hyperglycemia. ? You have signs of illness, such as nausea, vomiting, or fever. Get help right away if: ? Your blood glucose monitor reads high even when you are taking insulin. ? You have trouble breathing. ? You have a change in how you think, feel, or act (mental status). ? You have nausea or vomiting that does not go away. These symptoms may represent a serious problem that is an emergency. Do not wait to see if the symptoms will go away. Get medical help right away. Call your local emergency services (911 in the [place] Do not drive yourself to the hospital. Summary ? Hyperglycemia occurs when the level of sugar (glucose) in the blood is too high. ? Hyperglycemia can happen with or without diabetes, and severe hyperglycemia can be life-threatening. ? Hyperglycemia is diagnosed with a blood test to measure your blood glucose level. This blood test is usually done while you are having symptoms. Your health care provider may also do a physical exam and review your medical history. ? If you have diabetes, follow your diabetes management plan as told by your health care provider. ? Contact your health care provider if you have problems keeping your blood glucose in your target range. This information is not intended to replace advice given to you by your health care provider. Make sure you discuss any questions you have with your health care provider. Document Revised: 11/20/2020 Document Reviewed: 11/20/2020 [employer] Patient Education ?? 2021 [employer] Nausea, Adult Nausea is the feeling that you have an upset stomach or that you are about to vomit. Nausea on its own is not usually a serious concern, but it may be an early sign of a more serious medical problem.As nausea gets worse, it can lead to vomiting. If vomiting develops, or if you are not able to drink enough fluids, you are at risk of becoming dehydrated. Dehydration can make you tired and thirsty,cause you to have a dry mouth, and decrease how often you urinate. Older adults and people with other diseases or a weak disease-fighting system (immune system) are at higher risk for dehydration. The main goals of treating your nausea are: ? To relieve your nausea. ? To limit repeated nausea episodes. ? To prevent vomiting and dehydration. Follow these instructions at home: Watch your symptoms for any changes. Tell your health care provider about them. Follow these instructions as told by your health care provider. Eating and drinking ? Take an oral rehydration solution (ORS). This is a drink that is sold at pharmacies and retail stores. ? Drink clear fluids slowly and in small amounts as you are able. Clear fluids include water, ice chips, low-calorie sports drinks, and fruit juice that has water added (diluted fruit juice). ? Eat bland, rxoh-gk-wxcunn foods in small amounts as you are able. These foods include bananas, applesauce, rice, lean meats, toast, and crackers. ? Avoid drinking fluids that contain a lot of sugar or caffeine, such as energy drinks, sports drinks, and soda. ? Avoid alcohol. ? Avoid spicy or fatty foods. General instructions ? Take xzci-unq-mjyntad and prescription medicines only as told by your health care provider. ? Rest at home while you recover. ? Drink enough fluid to keep your urine pale yellow. ? Breathe slowly and deeply when you feel nauseous. ? Avoid smelling things that have strong odors. ? Wash your hands often using soap and water. If soap and water are not available, use hand patch press operator. ? Make sure that all people in your household wash their hands well and often. ? Keep all follow-up visits as told by your health care provider. This is important. Contact a health care provider if: ? Your nausea gets worse. ? Your nausea does not go away after two days. ? You vomit. ? You cannot drink fluids without vomiting. ? You have any of the following: ? New symptoms. ? A fever. ? A headache. ? Muscle cramps. ? A rash. ? Pain while urinating. ? You feel light-headed or dizzy. Get help right away if: ? You have pain in your chest, neck, arm, or jaw. ? You feel extremely weak or you faint. ? You have vomit that is bright red or looks like coffee grounds. ? You have bloody or black stools or stools that look like tar. ? You have a severe headache, a stiff neck, or both. ? You have severe pain, cramping, or bloating in your abdomen. ? You have difficulty breathing or are breathing very quickly. ? Your heart is beating very quickly. ? Your skin feels cold and clammy. ? You feel confused. ? You have signs of dehydration, such as: ? Dark urine, very little urine, or no urine. ? Cracked lips. ? Dry mouth. ? Sunken eyes. ? Sleepiness. ? Weakness. These symptoms may represent a serious problem that is an emergency. Do not wait to see if the symptoms will go away. Get medical help right away. Call your local emergency services (911 in the [place] Do not drive yourself to the hospital. Summary ? Nausea is the feeling that you have an upset stomach or that you are about to vomit. Nausea on its own is not usually a serious concern, but it may be an early sign of a more serious medical problem. ? If vomiting develops, or if you are not able to drink enough fluids, you are at risk of becoming dehydrated. ? Follow recommendations for eating and drinking and take ktzw-ewj-pvpwwol and prescription medicinesonly as told by your health care provider. ? Contact a health care provider right away if your symptoms worsen or you have new symptoms. ? Keep all follow-up visits as told by your health care provider. This is important. This information is not intended to replace advice given to you by your health care provider. Make sure you discuss any questions you have with your health care provider. Document Revised: 04/28/2021 Document Reviewed: 07/17/2018 [employer] Patient Education ?? 2021 [employer] Tests Performed Medications and Immunizations Administered Given Sodium Chloride 0.9%, 1000 mL, IV Bolus Sodium Chloride 0.9%, 1000 mL, IV Bolus !-Zofran, 4 mg, IV Push insulin regular 100 units/mL human recombinant injectable solution, 12 units, IV Push Lab Test Name Test Result Date/Time WBC 13.0 K/mcL 07/08/2022 14:45 EDT RBC 5.87 Million/mcL 07/08/2022 14:45 EDT Hgb 11.9 g/dL 07/08/2022 14:45 EDT Hct 40.9 % 07/08/2022 14:45 EDT MCV 69.7 fL 07/08/2022 14:45 EDT MCH 20.3 pg 07/08/2022 14:45 EDT MCHC 29.1 g/dL 07/08/2022 14:45 EDT RDW-CV 19.5 % 07/08/2022 14:45 EDT Platelets 236 K/mcL 07/08/2022 14:45 EDT MPV 11.7 fL 07/08/2022 14:45 EDT Segs Man 69 07/08/2022 14:45 EDT Lymph Man 2.0 % 07/08/2022 14:45 EDT Garfield Man 3.0 % 07/08/2022 14:45 EDT Eos Man 0.00 % 07/08/2022 14:45 EDT Baso Man 0.0 % 07/08/2022 14:45 EDT Band Man 26 % 07/08/2022 14:45 EDT Abs Neut Man 12.4 K/mcL 07/08/2022 14:45 EDT Abs Lymph Man 0.3 K/mcL 07/08/2022 14:45 EDT Abs Garfield Man 0.4 K/mcL 07/08/2022 14:45 EDT Abs Eos Man 0.0 K/mcL 07/08/2022 14:45 EDT Abs Baso Man 0.0 K/mcL 07/08/2022 14:45 EDT RBC Morph Abnormal 07/08/2022 14:45 EDT Anisocyte 2+ 07/08/2022 14:45 EDT Hypochromia 1+ 07/08/2022 14:45 EDT Microcyte 3+ 07/08/2022 14:45 EDT Plt Estimation Normal 07/08/2022 14:45 EDT Slide Review Man Diff 07/08/2022 14:45 EDT Sodium Level 135 mmol/L 07/08/2022 17:45 EDT Potassium Level 5.0 mmol/L 07/08/2022 17:45 EDT Chloride Level 105 mmol/L 07/08/2022 17:45 EDT CO2 22 mmol/L 07/08/2022 17:45 EDT Alk Phos 70 IntlUnit/L 07/08/2022 14:45 EDT AST 23 IntlUnit/L 07/08/2022 14:45 EDT ALT 23 IntlUnit/L 07/08/2022 14:45 EDT BUN 52 mg/dL 07/08/2022 17:45 EDT Glucose Level 386 mg/dL 07/08/2022 17:45 EDT Creatinine Level 2.31 mg/dL 07/08/2022 17:45 EDT BUN/Creat Ratio 22.5 07/08/2022 17:45 EDT Calcium Level 7.8 mg/dL 07/08/2022 17:45 EDT Protein Total 6.9 g/dL 07/08/2022 14:45 EDT Albumin Level 3.2 g/dL 07/08/2022 14:45 EDT Globulin 3.7 07/08/2022 14:45 EDT A/G Ratio 0.9 07/08/2022 14:45 EDT Bilirubin Total 1.1 mg/dL 07/08/2022 14:45 EDT Anion Gap 8.0 07/08/2022 17:45 EDT Lipase Level 25 unit/L 07/08/2022 14:45 EDT Osmolality 300 mOsm/kg 07/08/2022 17:45 EDT Glucose POC 400 07/08/2022 17:04 EDT eGFR CKD-EPI 35 mL/min/1.73 m2 07/08/2022 17:45 EDT Urine Srce Clean Catch 07/08/2022 17:48 EDT UA Color YELLOW. 07/08/2022 17:48 EDT UA Appear CLEAR. 07/08/2022 17:48 EDT UA Glucose >=1000 07/08/2022 17:48 EDT UA Bili NEGATIVE 07/08/2022 17:48 EDT UA Ketones NEGATIVE 07/08/2022 17:48 EDT UA Spec Grav 1.025 07/08/2022 17:48 EDT UA Blood SMALL Clinitek 07/08/2022 17:48 EDT UA pH 5.50 07/08/2022 17:48 EDT UA Protein >=300 07/08/2022 17:48 EDT UA Urobilinogen 0.2 07/08/2022 17:48 EDT UA Nitrite NEGATIVE 07/08/2022 17:48 EDT UA Leuk Est NEGATIVE 07/08/2022 17:48 EDT UA Culture Ind?. Yes 07/08/2022 17:48 EDT UA WBC 0-3 07/08/2022 17:48 EDT UA RBC 0-3 07/08/2022 17:48 EDT UA Bacteria Rare 07/08/2022 17:48 EDT UA Amorph Few 07/08/2022 17:48 EDT UA Hyal Cast 0-3 07/08/2022 17:48 EDT Patient/Roll Icer Machine Signature Patient Name:SHOSHANA SALGADO I have received this information and my questions have been answered. Patient/Roll Icer Machine Name: Patient/Roll Icer Machine Signature: Relationship to Patient: Witness Name/Signature: Date: Electronically Signed on: 07/08/2022 18:57 EDTSigned by:PERLA Patient Care team information Care Team Personnel Name: MARIBETH BARKER MD Position: No Access Member Role: Primary Care Physician Address: Address: [address], [place] [address] Name: Karlo Baker MD Position: Physician Member Role: ED Physician Address: Address: [address] [place] [address] Name: Rick Sharp Position: Nurse Member Role: Registered Nurse Care Team Related Persons Name: GRETTA SALGADO
--- OUTSIDE RECORDS SUMMARY | 2024-01-04 13:05 | XMS_ITS | Continuity of Care Document ---
Author Organization [facility] Address [address] [place] [address] Care Team Providers Care Brass Cutter Name Role Phone MARIBETH BARKER MD Primary Care Physician Encounter [facility] FIN NBR [id number] Date(s): 06/04/23 - 06/04/23 [facility] [address] [place] [address]- Encounter Diagnosis ST elevation myocardial infarction (STEMI) of inferior wall(Discharge Diagnosis) - 06/04/23 Discharge Disposition: Transfer to Higher Level of Care Attending Physician: Federico Cervantes MD Admitting Physician: Federico Cervantes MD Allergies, Adverse Reactions, Alerts Substance Reaction Severity Status melatonin Restless legs syndrome Unknown Activ e Diphendramine HCL Hyperactivity level Unknown Act nomi Assessment and Plan Extracted from: Title:ED Provider Note Author:Federico Cervantes MD D ate:06/04/23 1.??ST elevation myocardial infarction (STEMI) of inferior wall??I21.19 Orders: amiodarone 150 mg/100 mL Premix [LTTL], 150 mg = 100 mL, IV Piggyback, Soln-IV, Once, Administer over: 10 minutes, First Dose: 06/04/23 15:00:00 EDT, Stop Date: 06/04/23 15:00:00 EDT, Physician Stop, Routine, 600 mL/hr amiodarone IV additive 360 mg + Premix Diluent 200 mL, Total Volume (mL): 200, 200 mL, Soln-IV, IV, Titrate per protocol, Order Duration: 24 hr, Start Date: 06/04/23 14:53:00 EDT, Stop Date: 06/05/23 14:52:00 EDT, Populate Charting Weight From Order heparin IV additive 25,000 units [12 unit/kg/hr] + Premix Diluent 500 mL, Total Volume (mL): 500, 500 mL, Soln-IV, IV, 28.32 mL/hr, Start Date: 06/04/23 14:09:00 EDT, 118 kg, Populate Charting Weight From Order nitroglycerin 0.4 mg sublingual tablet, 0.4 mg = 1 tab, Sublingual, Tab-SL, every 5 min for 3 doses, PRN chest pain, First Dose: 06/04/23 14:03:00 EDT, Stop Date: Limited # of times, Physician Stop, Routine nitroglycerin Additive 50 mg [5 mcg/min] + Premix Diluent 250 mL, Total Volume (mL): 250, 250 mL, Injection, IV, 1.5 mL/hr, Start Date: 06/04/23 14:38:00 EDT, Titration instructions: Titrate by 5mcg/min q 3-5 minutes to 20mcg/min. If no response, increase by 10mcg/min up to max 0mcg/min, Populate Charting Weight F... Sodium Chloride 0.9% 1,000 mL, Total Volume (mL): 1,000, 1,000 mL, Soln-IV, Medication Bolus, 999 mL/hr, Order Duration: 1 times, Start Date: 06/04/23 14:03:00 EDT, Stop Date: 06/04/23 15:02:00 EDT, Populate Charting Weight From Order BNP, Blood, Stat, 06/04/23 13:54:00 EDT, Once, Nurse collect Lipase Level, Blood, Stat, 06/04/23 14:04:00 EDT, Once, Nurse collect Transfer to Another Facility, 06/04/23 14:15:00 EDT XR Chest 1 View, 06/04/23 13:54:00 EDT, Stat, Reason: sob, Transport Mode: Portable Functional Status 06/04/23 Family Member Travel History No recent t ravel Recent Travel History No recent travel Other exposure to Infectious Disease Non e Medications amoxicillin-clavulanate 875 mg-125 mg oral tablet 1 tab, Oral, every 12 hr, # 20 tab, 0 Refill(s), Pharmacy: [id number], 177, cm, 07/08/2313:39:00 EDT, [...] Start Date: 03/11/22 Status: Ordered Mental Status 06/04/23 Eye Opening Response [place] Spontaneous ly Best Verbal Response [place] Oriented Best Motor Response Loida Obeys comman ds [place] Coma Score 15 Problem List Condition Confirmation [...] Date Troponin-I High Sensitivity (High Sensit ivityTroponin-I) 06/04/23 .Morphology (LTTL) 06/04/23 BNP 06/04/23 CBC w/ Diff 06/04/23 Comprehensive Metabolic Panel (CMP) 06/03 Lipase Level 06/04/23 PT/ INR 06/04/23 PTT 06/04/23 Troponin-I High Sensitivity (High Sensit ivityTroponin-I) 06/04/23 Automated Diff 06/04/23 Most recent to oldest [Reference Range]: 1 2 WBC [4.8-10.8 K/mcL] 14.2 K/mcL *HI* (06/04/23 2:04 PM) RBC [4.70-6.10 Million/mcL] 5.92 Million /mcL (06/04/23 2:04 PM) Neutro Auto [42.2-75.2 %] 82.0 % *HI* (06/04/23 2:04 PM) Lymph Auto [20.5-51.1 %] 10.1 % *LOW* (06/04/23 2:04 PM) Ransom Auto [1.7-9.3 %] 6.0 % (06/04/23 2:04 PM) Basophil Auto [0.0-0.8 %] 0.8 % (06/04/23 2:04 PM) Prothrombin Time [9.1-10.6 seconds] 9.4 seconds (06/04/23 2:04 PM) INR [0.9-1.1] 0.9 1 (06/04/23 2:04 PM) BUN [7-25 mg/dL] 33 mg/dL *HI* (06/04/23 2:04 PM) Glucose Level [70-109 mg/dL] 306 mg/dL *HI* (06/04/23 2:04 PM) Potassium Level [3.5-5.1 mmol/L] 5.7 mmo l/L *HI* (06/04/23 2:04 PM) Baso Absolute [0.0-0.2 K/mcL] 0.1 K/mcL (06/04/23 2:04 PM) MCV [80.0-94.0 fL] 67.9 fL *LOW* (06/04/23 2:04 PM) RBC Morph [Normal] Abnormal *ABN* (06/04/23 2:04 PM) AST [13-39 IntlUnit/L] 39 IntlUnit/L (06/04/23 2:04 PM) ALT [7-52 IntlUnit/L] 21 IntlUnit/L (06/04/23 2:04 PM) MCHC [32.0-37.0 g/dL] 30.4 g/dL *LOW* (06/04/23 2:04 PM) Osmolality [275-295 mOsm/kg] 287 mOsm/kg (06/04/23 2:04 PM) Sodium Level [136-145 mmol/L] 134 mmol/L *LOW* (06/04/23 2:04 PM) Lymph Absolute [1.2-3.4 K/mcL] 1.4 K/mcL (06/04/23 2:04 PM) Hct [42.0-52.0 %] 40.2 % *LOW* (06/04/23 2:04 PM) Microcyte 2+ *ABN* (06/04/23 2:04 PM) Lipase Level [11-82 unit/L] 16 unit/L 2 (06/04/23 2:04 PM) Hypochromia 1+ *ABN* (06/04/23 2:04 PM) Partial Thromboplastin Time [21.3-28.4 seconds] 25.2 seconds (06/04/23 2:04 PM) Calcium Level [8.6-10.3 mg/dL] 9.6 mg/dL (06/04/23 2:04 PM) Ransom Absolute [0.1-0.6 K/mcL] 0.9 K/mcL *HI* (06/04/23 2:04 PM) Albumin Level [3.5-5.7 g/dL] 4.1 g/dL (06/04/23 2:04 PM) Protein Total [6.4-8.9 g/dL] 7.8 g/dL (06/04/23 2:04 PM) MCH [27.0-31.0 pg] 20.6 pg *LOW* (06/04/23 2:04 PM) Neutro Absolute [1.4-6.5 K/mcL] 11.7 K/m cL *HI* (06/04/23 2:04 PM) Bilirubin Total [0.3-1.0 mg/dL] 0.8 mg/d L (06/04/23 2:04 PM) Hgb [14.0-18.0 g/dL] 12.2 g/dL *LOW* (06/04/23 2:04 PM) Alk Phos [34-104 IntlUnit/L] 77 IntlUnit /L (06/04/23 2:04 PM) MPV [7.4-10.4 fL] 8.6 fL (06/04/23 2:04 PM) Platelets [130-400 K/mcL] 285 K/mcL (06/04/23 2:04 PM) CO2 [21-31 mmol/L] 23 mmol/L (06/04/23 2:04 PM) Eos Absolute [0.0-0.2 K/mcL] 0.2 K/mcL (06/04/23 2:04 PM) BNP [<=100 pg/mL] 129 pg/mL *HI* (06/04/23 2:04 PM) Chloride Level [98-107 mmol/L] 101 mmol/ L (06/04/23 2:04 PM) RDW-CV [11.5-14.5 %] 19.0 % *HI* (06/04/23 2:04 PM) A/G Ratio [1.0-2.5 g/dL] 1.1 g/dL (06/04/23 2:04 PM) BUN/Creat Ratio [8.0-20.0] 15.7 (06/04/23 2:04 PM) Globulin [2.3-3.5 g/dL] 3.7 g/dL *HI* (06/04/23 2:04 PM) Slide Review Morph Only (06/04/23 2:04 PM) Anisocyte 1+ (06/04/23 2:04 PM) Creatinine Level [0.70-1.30 mg/dL] 2.10 mg/dL *HI* (06/04/23 2:04 PM) Plt Estimation Normal (06/04/23 2:04 PM) Troponin-I HS [<=20 ng/L] 5314 ng/L 3, 4 *CRIT* (06/04/23 2:48 PM) 5543 ng/L 5, 6 *CRIT* (06/04/23 2:04 PM) Anion Gap [3.0-12.0] 10.0 (06/04/23 2:04 PM) Eos, Auto [0.00-3.00 %] 1.10 % (06/04/23 2:04 PM) eGFR CKD-EPI [>=60 mL/min/1.73 m2] 39 mL /min/1.73 m2 *LOW* (06/04/23 2:04 PM) 1Interpretive Data: THERAPEUTIC INR RANGES FOR WARFARIN Uncomplicated venous thromboembolic disease 2-3 Lupus Anticoagulant and recurrent thrombosis 3-3.5 Mechanical prosthetic valve or recurrent thrombosis 2.5-3.5 2Interpretive Data: G-luvduo-i-benzoquinone imine (meabolite of Acetaminophen) will generate erroneously low lipase results in samples for patients that have taken toxic doses of acetaminophen. 3Result Comment: Previously called 4Interpretive Data: The [facility] ACCESS high-sensitivity Troponin [...] heart disease from those who do not. 5Result Comment: Critical Result [id number] Called to and read back by: ALVERTO JOVEL at: 06/04/2023 14:44:48 by:LT 6Interpretive Data: The [facility] ACCESS high-sensitivity Troponin [...] Exam Date Time Procedure Performing Provider Status 06/04/23 2:14 PM XR Chest 1 View CartwrightNatalie; Michael (V erified) Notes: (XR Chest 1 View) Reason For Exam: sob XR Chest 1 View PROCEDURE INFORMATION: Exam: XR Chest Exam date and time: 06/04/2023 2:05 PM Age: 47 years old Clinical indication: Shortness of breath; Additional info: SOB TECHNIQUE: Imaging protocol: Radiologic exam of the chest. Views: 1 view. COMPARISON: CT ANGIO CHEST 03/08/2023 10:09 AM FINDINGS: Lungs: Unremarkable. No consolidation. Pleural spaces: Unremarkable. No pleural effusion. No pneumothorax. Heart/Mediastinum: Unremarkable. No cardiomegaly. Bones/joints: Unremarkable. IMPRESSION: No acute findings. THIS DOCUMENT HAS BEEN ELECTRONICALLY SIGNED BY LENIN JOSUE MD on 06/04/2023 03:08 PM Final Signed by: Lenin Josue MD Signed (Electronic Signature): 06/04/2023 3:08 pm Vital Signs Most recent to oldest [Reference Range]: 1 2 3 Temperature Temporal Artery [36-38 Deg C] 36.4 Deg C (06/04/23 1:49 PM) Peripheral Pulse Rate [60-100 bpm] 110 bpm *HI* (06/04/23 1:49 PM) Heart Rate Monitored [60-100 bpm] 103 bpm *HI* (06/04/23 2:55 PM) 103 bpm *HI* (06/04/23 2:50 PM) 102 bpm *HI* (06/04/23 2:45 PM) Respiratory Rate [12-24 br/min] 19 br/min (06/04/23 2:55 PM) 19 br/min (06/04/23 2:50 PM) 16 br/min (06/04/23 2:45 PM) Blood Pressure [90-140/60-90 mmHg] 156/89mmHg *HI* (06/04/23 2:45 PM) 156/89mmHg *HI* (06/04/23 2:40 PM) 153/87mmHg *HI* (4/14/24 2:35 PM) Mean Arterial Pressure, Cuff [65-140 mmHg] 111 mmHg (06/04/23 2:45 PM) 111 mmHg (06/04/23 2:40 PM) 109 mmHg (06/04/23 2:35 PM) Mean Arterial Pressure Cuff 105 mmHg (06/04/23 2:45 PM) 105 mmHg (06/04/23 2:40 PM) 103 mmHg (06/04/23 2:35 PM) Social History Social History Type Response Tobacco Never tobacco user T obacco Use:. Sex Physician Emergency department Note * Federico Cervantes MD: PERFORM Event Display: ED Note Physician Authored Date: [id number] SHOSHANA SALGADO :1975 Age:47 years Sex:Male Visit Date:06/04/2023 Primary Care Physician: MARIBETH BARKER MD Basic Information Time Seen: Federico Cervantes MD / 06/04/2023 13:54 Chief Complaint Pt started to have CP and SOB starting yesterday morning. Has been very fatigued today and had 1 episode of n/v. Also having bilat arm pain and back pain. Pt reports having a heart attack 4 years agorequiring stents. History Of Present Illness: 47-year-old male with past medical history significant for CAD status post STEMI and stent 5 years ago at [facility] presents the ER complaining of chest pain. ??The patient states he was doing well until??yesterday around noon when he developed substernal chest pain which felt like a tightness.?? He had associated shortness of breath, nausea, and sweatiness. ??The symptoms have been persistent and unchanging??for the past 24 hours since that time??and when they did not go away he now comes in for evaluation.?? The patient states that the symptoms feel similar to his previous PR 5 years ago.??Denies any recent??traveling or immobilization. ??No recent bleeding problems or surgeries.?? He takes baby aspirin daily and no other blood thinners. Review of Systems: CONSTITUTIONAL:??No fevers or chills. EYES:??No change in vision. ENT:??No sore throat. ??No headache. ??No neck pain. CARDIOVASCULAR:??No palpitations or passing out episodes. RESPIRATORY:??No cough, or hemoptysis. GI:??No abdominal pain. ??No vomiting or diarrhea. :??No change in urination. SKIN:??No rash. NEUROLOGIC:??No focal numbness or weakness. PSYCHIATRIC:??No suicidal ideation. LYMPH:??No swelling. ?? Review of systems otherwise as stated in HPI Physical Exam Vitals & Measurements T:??36.4?C ??(Temporal Artery)?? HR:??103??(Monitored)?? RR:??19?? BP:??156/89?? SpO2:??100%?? Pain Score:??5?? O2 Therapy:??Room air?? GENERAL:??Awake and alert.?? Moderate discomfort.?? Pale and diaphoretic. HEENT:??Normocephalic, atraumatic. ??Mucous membranes are moist. NECK:??Supple. ??Nontender. HEART:??Regular and borderline tachycardic. LUNGS:??Clear to auscultation bilaterally. ??No respiratory distress. ABDOMEN:??Soft, nontender, nondistended. BACK:??Normal to inspection and nontender. EXTREMITIES:??Nontender and without edema. NEUROLOGIC:??Awake, alert, and oriented x3. ??Motor and sensory grossly intact. SKIN:??Pale and diaphoretic. VASCULAR:??Radial 2+ bilaterally. Medical Decision Making: Inferior STEMI.?? Patient presents with??24 hours of chest pain and has findings of inferior STEMI on EKG.?? Given the timeframe I did not order thrombolytics??based on 24 hours of symptoms until talking to cardiology. ??He was initially given aspirin, Plavix, heparin bolus, heparin drip, and sublingual nitroglycerin.?? Chest pain came down from an 8 out of 10 to 5 out of 10 with the nitroglycerin but blood pressure dropped from 1 70-1 20.?? Nitroglycerin drip was initiated.?? I spoke with [facility] cardiology??who agreed on holding off with thrombolytics at this??point.?? Patient was accepted in transfer??to [facility].?? The valet cashier called back after speaking with the interventionalists who did recommend proceeding with thrombolytics and the patient was ordered TNK 50 mg IV which was administered.?? The patient's chest pain??began subsiding.?? An EMS crew was here at the hospital about to do a transfer from the ICU and they were able to take the patient immediately. ??Unfortunately they are??not an ALS crew and an ORTHOTIST/PROSTHETIST was sent??to augment the crew.?? Current??medications will be continued??and??the ambulance has??ALS cardiac medications on board. ??The nurse was sentwith premix amiodarone to use??if indicated.?? The patient will be taken directly to [facility]??to the cardiac Patient Scheduling Coordinator??for further care.?? The patient's presentation is not consistent with PE or dissection. ??No evidence for pneumothorax or pneumonia on chest x-ray. Critical Care Time Spent 60 minutes Procedure No Qualifying Data Assessment/Plan 1.??ST elevation myocardial infarction (STEMI) of inferior wall??I21.19 Orders: amiodarone 150 mg/100 mL Premix [LTTL], 150 mg = 100 mL, IV Piggyback, Soln-IV, Once, Administer over: 10 minutes, First Dose: 06/04/23 15:00:00 EDT, Stop Date: 06/04/23 15:00:00 EDT, Physician Stop,Routine, 600 mL/hr amiodarone IV additive 360 mg + Premix Diluent 200 mL, Total Volume (mL): 200, 200 mL, Soln-IV, IV,Titrate per protocol, Order Duration: 24 hr, Start Date: 06/04/23 14:53:00 EDT, Stop Date: 06/04/2413:52:00 EDT, Populate Charting Weight From Order heparin IV additive 25,000 units [12 unit/kg/hr] + Premix Diluent 500 mL, Total Volume (mL): 500, 500 mL, Soln-IV, IV, 28.32 mL/hr, Start Date: 06/04/23 14:09:00 EDT, 118 kg, Populate Charting WeightFrom Order nitroglycerin 0.4 mg sublingual tablet, 0.4 mg = 1 tab, Sublingual, Tab-SL, every 5 min for 3 doses, PRN chest pain, First Dose: 06/04/23 14:03:00 EDT, Stop Date: Limited # of times, Physician Stop, Routine nitroglycerin Additive 50 mg [5 mcg/min] + Premix Diluent 250 mL, Total Volume (mL): 250, 250 mL, Injection, IV, 1.5 mL/hr, Start Date: 06/04/23 14:38:00 EDT, Titration instructions: Titrate by 5mcg/min q 3-5 minutes to 20mcg/min. If no response, increase by 10mcg/min up to max 0mcg/min, Populate Charting Weight F... Sodium Chloride 0.9% 1,000 mL, Total Volume (mL): 1,000, 1,000 mL, Soln-IV, Medication Bolus, 999 mL/hr, Order Duration: 1 times, Start Date: 06/04/23 14:03:00 EDT, Stop Date: 06/04/23 15:02:00 EDT, Populate Charting Weight From Order BNP, Blood, Stat, 06/04/23 13:54:00 EDT, Once, Nurse collect Lipase Level, Blood, Stat, 06/04/23 14:04:00 EDT, Once, Nurse collect Transfer to Another Facility, 06/04/23 14:15:00 EDT XR Chest 1 View, 06/04/23 13:54:00 EDT, Stat, Reason: sob, Transport Mode: Portable Medication Reconciliation Unchanged amoxicillin-clavulanate (amoxicillin-clavulanate 875 mg-125 [...] Procedure/Surgical History ???Stent placement Medication Administration Given heparin IV additive 25,000 units [12 unit/kg/hr] + Premix Diluent 500 mL, IV nitroglycerin Additive 50 mg [5 mcg/min] + Premix Diluent 250 mL, IV Sodium Chloride 0.9%, 1000 mL, Medication Bolus aspirin, 324 mg, Oral heparin, 4000 units, Medication Bolus nitroglycerin 0.4 mg sublingual tablet, 0.4 mg, Sublingual Plavix, 300 mg, Oral tenecteplase, 50 mg, IV Push Allergies Diphendramine HCL??(Hyperactivity level) melatonin??(Restless legs syndrome) Social History Alcohol Current, Beer, 1-2 times per month Electronic Cigarette/Vaping Electronic Cigarette Use: Never. Home/Environment Lives with Spouse. Living situation: Home/Independent. Tobacco Never tobacco user Tobacco Use:. Diagnostic Results ECG EKG 1: Sinus tachycardia at 105.?? There is??ST elevation in the inferior leads II, 3, aVF about 3 mm.?? Mild reciprocal depression in leads I and aVL.?? Pathologic Q waves present in lead III which are old as compared to previous EKG but the ST segment changes appear new. Lab Results CBC and Differential?? LATEST RESULTS?? HISTORICAL RESULTS?? WBC?? 06/04/23 14:04?? 14.2 ??High?? 03/08/23?? 10.3?? RBC?? 06/04/23 14:04?? 5.92?? 03/08/23?? 5.55?? Hgb?? 06/04/23 14:04?? 12.2 ??Low?? 03/08/23?? 11.4 ??Low?? Hct?? 06/04/23 14:04?? 40.2 ??Low?? 03/08/23?? 37.4 ??Low?? MCV?? 06/04/23 14:04?? 67.9 ??Low?? 03/08/23?? 67.4 ??Low?? MCH?? 06/04/23 14:04?? 20.6 ??Low?? 03/08/23?? 20.5 ??Low?? MCHC?? 06/04/23 14:04?? 30.4 ??Low?? 03/08/23?? 30.3 ??Low?? RDW-CV?? 06/04/23 14:04?? 19.0 ??High?? 03/08/23?? 19.0 ??High?? Platelets?? 06/04/23 14:04?? 285?? 03/08/23?? 326?? MPV?? 06/04/23 14:04?? 8.6?? 03/08/23?? 8.2?? Neutro Auto?? 06/04/23 14:04?? 82.0 ??High?? 03/08/23?? 78.4 ??High?? Lymph Auto?? 06/04/23 14:04?? 10.1 ??Low?? 03/08/23?? 11.1 ??Low?? Ransom Auto?? 06/04/23 14:04?? 6.0?? 03/08/23?? 8.9?? Eos, Auto?? 06/04/23 14:04?? 1.10?? 03/08/23?? 1.20?? Basophil Auto?? 06/04/23 14:04?? 0.8?? 03/08/23?? 0.4?? Neutro Absolute?? 06/04/23 14:04?? 11.7 ??High?? 03/08/23?? 8.0 ??High?? Lymph Absolute?? 06/04/23 14:04?? 1.4?? 03/08/23?? 1.1 ??Low?? Ransom Absolute?? 06/04/23 14:04?? 0.9 ??High?? 03/08/23?? 0.9 ??High?? Eos Absolute?? 06/04/23 14:04?? 0.2?? 03/08/23?? 0.1?? Baso Absolute?? 06/04/23 14:04?? 0.1?? 03/08/23?? 0.0?? RBC Morph?? 06/04/23 14:04?? Abnormal Abnormal?? 03/08/23?? Abnormal Abnormal?? Anisocyte?? 06/04/23 14:04?? 1+?? 03/08/23?? 2+?? Hypochromia?? 06/04/23 14:04?? 1+ Abnormal?? 03/08/23?? 1+ Abnormal?? Microcyte?? 06/04/23 14:04?? 2+ Abnormal?? 03/08/23?? 3+ Abnormal?? Plt Estimation?? 06/04/23 14:04?? Normal?? 03/08/23?? Normal?? Slide Review?? 06/04/23 14:04?? Morph Only?? 03/08/23?? Morph Only? Coagulation?? LATEST RESULTS?? HISTORICAL RESULTS?? Prothrombin Time?? 06/04/23 14:04?? 9.4?? 03/08/23?? 9.1?? INR?? 06/04/23 14:04?? 0.9?? 03/08/23?? 0.9?? Partial Thromboplastin Time?? 06/04/23 14:04?? 25.2?? 03/08/23?? 27.9? Routine Chemistry?? LATEST RESULTS?? HISTORICAL RESULTS?? Sodium Level?? 06/04/23 14:04?? 134 ??Low?? 03/08/23?? 140?? Potassium Level?? 06/04/23 14:04?? 5.7 ??High?? 03/08/23?? 4.7?? Chloride Level?? 06/04/23 14:04?? 101?? 03/08/23?? 108 ??High?? CO2?? 06/04/23 14:04?? 23?? 03/08/23?? 23?? Alk Phos?? 06/04/23 14:04?? 77?? 03/08/23?? 70?? AST?? 06/04/23 14:04?? 39?? 03/08/23?? 17?? ALT?? 06/04/23 14:04?? 21?? 03/08/23?? 19?? BUN?? 06/04/23 14:04?? 33 ??High?? 03/08/23?? 39 ??High?? Glucose Level?? 06/04/23 14:04?? 306 ??High?? 03/08/23?? 188 ??High?? Creatinine Level?? 06/04/23 14:04?? 2.10 ??High?? 03/08/23?? 2.20 ??High?? BUN/Creat Ratio?? 06/04/23 14:04?? 15.7?? 03/08/23?? 17.7?? eGFR CKD-EPI?? 06/04/23 14:04?? 39 ??Low?? 03/08/23?? 37 ??Low?? Calcium Level?? 06/04/23 14:04?? 9.6?? 03/08/23?? 8.9?? Protein Total?? 06/04/23 14:04?? 7.8?? 03/08/23?? 7.6?? Albumin Level?? 06/04/23 14:04?? 4.1?? 03/08/23?? 3.6?? Globulin?? 06/04/23 14:04?? 3.7 ??High?? 03/08/23?? 4.0 ??High?? A/G Ratio?? 06/04/23 14:04?? 1.1?? 03/08/23?? 0.9 ??Low?? Bilirubin Total?? 06/04/23 14:04?? 0.8?? 03/08/23?? 0.4?? Anion Gap?? 06/04/23 14:04?? 10.0?? 03/08/23?? 9.0?? Osmolality?? 06/04/23 14:04?? 287?? 03/08/23?? 294? Cardiac Isoenzymes?? LATEST RESULTS?? HISTORICAL RESULTS?? Troponin-I HS?? 06/04/23 14:04?? 5543 ??Critical?? 03/08/23?? 51 ??Critical? Electronically Signed on 06/04/23 03:03 PM Federico Cervantes MD Patient Care team information Care Team Personnel Name: MARIBETH BARKER MD Position: No Access Member Role: Primary Care Physician Address: Address: [address] [place] [address]- Care Team Related Persons Name: GRETTA SALGADO Name: GRETTA SALGADO Address: Home [address] [place] [phone] [facility] Address: Mailing [address] [place] [phone]
--- OUTSIDE RECORDS SUMMARY | 2024-01-04 13:06 | XMS_ITS ---
Author Name Nerissa Cuellar Address [address] [place] [address] Phone [phone] Organization [facility], NA DOCUMENT DISCLAIMER Multiple document versions may exist, please be sure you review the latest version. The information in the [facility] Progress Note Document represents a providers documented clinical note containing certain health and medical information. It may not contain the complete medical history for the patient and should be independently verified. The represented time in the document is Eastern Time PROVIDER ROUNDING NOTE BASIC Patient:?Hayden?Karan,?1975,?48y,?M Dialysis?Location:?[facility] Attending?Manager Of Customer Billing:?Alice?Terry Service?Date:?12/29/2023 Service?Provider:?Nerissa?Alisa,?ELECTRIC CELL TENDER I?met?face?to?face?with?the?patient?today. OVERVIEW The?patient?presented?with?ESRD?on?dialysis Primary?cause?of?renal?failure:?Chronic?kidney?disease,?unspecified Comments:?12/29/23?-?Tolerating?HD?with?no?acute?issues. 12/25/23?-?Admitted?to[place]with?fluid?overload?after?re cent?[facility].?Dialysis?initiated?during?hospitalization.?He?states&# 160;he?is?feeling?great.?Shares?that?his?urine?o utput?has?increased,?appetite?has?improved?and?he?is?sl eeping?well.?Will?check?pretx?creatinine?on?mondays?to? monitor?for?any?renal?recovery.?For?now,?he?is?having&# 160;stable?iHD?treatments.?Catheter?functioning?well.?Fluid?volum e?status?and?labs?are?acceptable.? Medications?and?labs?reviewed. DIALYSIS?PRESCRIPTION ??IHD?3x?Week?Start?date:?12/25/23 ??Dialyzer:?180NRe?Optiflux ??BFR:?450 ??DFR:?Manual?800 ??Potassium:?2.0 ??Sodium:?140 ??EDW:?119 ??Duration:?4:00 ??Calcium:?2.5 ??Bicarb:?35 ??Rx?updated?on:?12/25/2023 TREATMENT?ASSESSMENT BP?Sit?Pre ??12/27/2023:?111/60 ??12/25/2023:?119/67 ??12/22/2023:?96/57 BP?Stand?Post ??12/25/2023:?125/65 BP?Sit?Post ??12/27/2023:?126/69 ??12/25/2023:?134/69 ??12/22/2023:?126/68 Tx?Duration ??12/27/2023:?4:00 ??12/25/2023:?4:10 ??12/22/2023:?4:11 Missed?Treatments 0?-?last?30?days 0?-?last?60?days FLUID?ASSESSMENT EDW?(kg) ??12/27/2023:?119.0 ??12/25/2023:?111.0 ??12/22/2023:?123.0 Weight?Pre?(kg) ??12/27/2023:?122.9 ??12/25/2023:?120.9 ??12/22/2023:?112.1 Weight?Post?(kg) ??12/27/2023:?120.0 ??12/25/2023:?119.1 ??12/22/2023:?111.4 PWV?(kg) ??12/27/2023:?1.0 ??12/25/2023:?8.1 ??12/22/2023:?-11.6 UF?Rate?(mL/kg/hr) ??12/27/2023:?6 ??12/25/2023:?3.6 ??12/22/2023:?1.5 ADEQUACY?ASSESSMENT spKt/V,?URR ??12/25/2023:?1.28,?67.0 ACCESS?ASSESSMENT ??Access?Type:?CVCatheter ??Access?SubType:?Tunneled ??Access?Status:?Active?(In?Use)?-?12/20/2023 ??Access?Location:?Neck ??Placed:?12/12/2023 ANEMIA?ASSESSMENT HGB,?TSAT ??12/25/2023:?7.7,?11.0 ?? Ferritin ??12/25/2023:?280.0 Active?Orders:?Iron?Sucrose?(Venofer)?100?mg?3X?Week?Du ring?Dialysis.?Mircera?60?mcg?Every?2?weeks?During?Dialysis. BMM?ASSESSMENT PTH,?Intact ??12/25/2023:?105.0 ?? Calcium,?Phosphorus ??12/25/2023:?8.5,?4.9 NUTRITION?ASSESSMENT Potassium,?Albumin ??12/25/2023:?5.0,?3.3 ?? eNPCR ??12/25/2023:?0.78 DIAGNOSIS Chief?Complaint:?N18.6?End?stage?renal?disease Patient?data?updated?12/29/2023?at?12:48?PM Signed?By:?Alisa,?Nerissa,?[employer]??on?12/29/2023?12:48:59 PM END OF DOCUMENT
--- OUTSIDE RECORDS SUMMARY | 2024-01-04 13:06 | XMS_ITS ---
Author Name Nerissa Cuellar Address [address] [place] [address] Phone [phone] Organization [facility], NA DOCUMENT DISCLAIMER Multiple document versions may exist, please be sure you review the latest version. The information in the [facility] Progress Note Document represents a providers documented clinical note containing certain health and medical information. It may not contain the complete medical history for the patient and should be independently verified. The represented time in the document is Eastern Time PROVIDER ROUNDING NOTE BASIC Patient:?Hayden?Karan,?1975,?48y,?M Dialysis?Location:?[facility] Attending?Clinical Laboratory Science Professor:?Alice?Terry Service?Date:?12/25/2023 Service?Provider:?Nerissa?Alisa,?ENTRY LEVEL ACCOUNTING CLERK I?met?face?to?face?with?the?patient?today. 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 Medications?and?labs?reviewed. DIALYSIS?PRESCRIPTION ??IHD?3x?Week?Start?date:?12/25/23 ??Dialyzer:?180NRe?Optiflux ??BFR:?450 ??DFR:?Manual?800 ??Potassium:?2.0 ??Sodium:?140 ??EDW:?111 ??Duration:?4:00 ??Calcium:?2.5 ??Bicarb:?35 ??Rx?updated?on:?12/23/2023 TREATMENT?ASSESSMENT BP?Sit?Pre ??12/22/2023:?96/57 BP?Sit?Post ??12/22/2023:?126/68 Tx?Duration ??12/22/2023:?4:11 Missed?Treatments 0?-?last?30?days 0?-?last?60?days FLUID?ASSESSMENT EDW?(kg) ??12/22/2023:?123.0 Weight?Pre?(kg) ??12/22/2023:?112.1 Weight?Post?(kg) ??12/22/2023:?111.4 PWV?(kg) ??12/22/2023:?-11.6 UF?Rate?(mL/kg/hr) ??12/22/2023:?1.5 ACCESS?ASSESSMENT ??Access?Type:?CVCatheter ??Access?SubType:?Tunneled ??Access?Status:?Active?(In?Use)?-?12/20/2023 ??Access?Location:?Neck ??Placed:?12/12/2023 DIAGNOSIS Chief?Complaint:?N18.6?End?stage?renal?disease Patient?data?updated?12/25/2023?at?1:58?PM Signed?By:?Alisa,?Nerissa,?ENTRY LEVEL ACCOUNTING CLERK??on?12/25/2023?2:04:41?PM END OF DOCUMENT
--- OUTSIDE RECORDS SUMMARY | 2024-01-04 13:06 | XMS_ITS | Continuity of Care Document ---
Author Organization [facility] Address [address] [place] [address] Support Name Relationship Address Phone GRETTA SALGADO Personal Relationship Unknown Emily vailable BRILL, AARTI Constantino Personal Relationship Unknown Unav ailable BRILL, AARTI Constantino Personal Relationship Unknown Unav ailable BRILL, GRETTA Personal Relationship Unknown Unava ilable Encounter [facility] NBR [id number] Date(s): 12/31/23 - 12/31/[address] [address]- Encounter Diagnosis Anemia(Discharge Diagnosis) - 12/31/23 Chest wall pain(Discharge Diagnosis) - 12/31/23 Discharge Disposition: Home or Self Care Attending Physician: Julio Fan MD Admitting Physician: Julio Fan MD Allergies, Adverse Reactions, Alerts Substance Criticality Severity Reaction Reaction Severity Status melatonin Unable to assess criticality Unknown Restless legs syndrome Active Diphendramine HCL Unable to assess criticality Unknown Hyperactivity level Active Assessment and Plan Extracted from: Title:ED Provider Note Author:Jamari Jasso Date:12/31/23 Assessment/Plan 1.??Anemia??D64.9 ??Patient will continue to have this monitored over the next several weeks and will return as needed for any signs of??worsening condition. Ordered: methocarbamol 750 mg oral tablet, 750 mg = 1 tab, Oral, TID, X 5 days, # 15 tab, 0 Refill(s), 01/05/24 16:09:00 EST, Pharmacy: [id number], 177, cm, 12/31/23 12:33:00 EST, Height, 117.93, kg, 12/31/23 12:35:00 EST, Weight Dosing Discharge Patient, 12/31/23 16:09:00 EST, Home Independently ?? 2.??Chest wall pain??R07.89 ??In regards to patient chest wall pain relief I feel that this is not cardiac in nature given his troponins being flat.?? At this time he understands that??there is still possibility of this being a demand type ischemia due to the fact that there is??a significant lowering of his hemoglobin??he understands that we have replenished this but have not fully replenished.?? He will continue to monitor and discussed with his hemodialysis team??to discuss any further??evaluations or interventions. ??He will return as needed for any new or worsening conditions Ordered: methocarbamol 750 mg oral tablet, 750 mg = 1 tab, Oral, TID, X 5 days, # 15 tab, 0 Refill(s), 01/05/24 16:09:00 EST, Pharmacy: [id number], 177, cm, 12/31/23 12:33:00 EST, Height, 117.93, kg, 12/31/23 12:35:00 EST, Weight Dosing Discharge Patient, 12/31/23 16:09:00 EST, Home Independently ?? Orders: Crossmatch, Blood, Stat, Collected, 12/31/23 13:18:00 EST, Once, Nurse collect, [id number] CV Electrocardiogram 12 Lead, 12/31/23 12:30:00 EST, Routine, Reason: Chest Pain, Stop date and time 12/31/23 12:30:00 EST, ORD_SET_REQ_DT_RANGE, [facility] Internal Person Id Vital Signs, 12/31/23 13:30:00 EST, Once, Stop date 12/31/23 13:30:00 EST, Obtain baseline before transfusion Vital Signs, 12/31/23 13:31:00 EST, Constant order, Obtain vitals 15 minutes after initiation, then hourly during infusion, then at discontinuation of unit Patient Education Chest Wall Pain Anemia Follow Up With When Contact Information Follow-up with your primary care Within 1 week Additional Instructions: Follow-up with your primary care as needed, they will be able to reevaluate if necessary Return to ED if concerns ?? Medications amiodarone 200 mg oral tablet 200 [...] 0 Refill(s) Start Date: 12/01/23 Status: Ordered Entresto 24 mg-26 mg oral tablet 1 tab, Oral, BID Start Date: 12/31/23 Status: Ordered Farxiga 5 mg oral tablet [...] TWICE DAILY Start Date: 12/01/23 Status: Ordered methocarbamol 750 mg oral tablet 750 mg = 1 tab, Oral, TID, X 5 days, # 15 tab, 0 Refill(s), 01/05/24 3:09:00 PM NEON SIGN ERECTOR, Pharmacy: [id number], 177, cm, 12/31/23 12:33:00 EST, Height, 117.93, kg, 12/31/23 12:35:00 EST, WeightDosing Start Date: 12/31/23 Stop Date: 01/05/24 Status: Ordered oxyCODONE 5 mg oral tablet TAKE 1 TABLET BY MOUTH EVERY 8 HOURS NEEDED FOR PAIN Start Date: 12/01/23 Status: Ordered pantoprazole 40 mg oral delayed release tablet TAKE 1 TABLET BY MOUTH ONCE DAILY Start Date: 12/10/23 Status: Ordered sevelamer carbonate 800 mg oral tablet TAKE 1 TABLET BY MOUTH THREE TIMES DAILY WITH MEALS Start Date: 12/01/23 Status: Ordered temazepam 7.5 mg oral capsule 7.5 mg = 1 cap, Oral, every night at bedtime, PRN as needed for sleep, # 30 cap, 0 Refill(s), 01/01/24 10:33:00 PM NEON SIGN ERECTOR, Pharmacy: [id number], 177.8, cm, 12/01/23 21:30:00 [...] Start Date: 12/01/23 Status: Ordered Mental Status 12/31/23 Eye Opening Response [place] Spontaneous ly Best Verbal Response [place] Oriented Best Motor Response [place] Obeys comman ds [place] Coma Score 15 [...] Date Troponin-I High Sensitivity (High Sensit ivityTroponin-I) 12/31/23 Red Blood Cells 12/31/23 ABO/Rh Echo 12/31/23 ABSC Echo (Antibody Screen Echo) 4 Urinalysis with Micro if Indicated and C ulture if Indicated 12/31/23 .Morphology (LTTL) 12/31/23 CBC w/ Diff 12/31/23 Comprehensive Metabolic Panel (CMP) 12/21 Lipase Level 12/31/23 Magnesium Level 12/31/23 PT/ INR 12/31/23 Troponin-I High Sensitivity (High Sensit ivityTroponin-I) 12/31/23 Automated Diff 12/31/23 Most recent to oldest [Reference Range]: 1 2 WBC [4.8-10.8 K/mcL] 9.9 K/mcL (12/31/23 12:54 PM) RBC [4.70-6.10 Million/mcL] 3.52 Million /mcL *LOW* (12/31/23 12:54 PM) Neutro Auto [42.2-75.2 %] 78.7 % *HI* (12/31/23 12:54 PM) Lymph Auto [20.5-51.1 %] 11.3 % *LOW* (12/31/23 12:54 PM) Mcminn Auto [1.7-9.3 %] 7.5 % (12/31/23 12:54 PM) Basophil Auto [0.0-0.8 %] 1.1 % *HI* (12/31/23 12:54 PM) Prothrombin Time [9.1-10.6 seconds] 10.6 seconds (12/31/23 12:54 PM) INR [0.9-1.1] 1.0 1 (12/31/23 12:54 PM) BUN [7-25 mg/dL] 52 mg/dL *HI* (12/31/23 12:54 PM) UA Color LIGHT YELL *NA* (12/31/23 1:02 PM) Glucose Level [70-109 mg/dL] 157 mg/dL *HI* (12/31/23 12:54 PM) Potassium Level [3.5-5.1 mmol/L] 4.3 mmo l/L (12/31/23 12:54 PM) Baso Absolute [0.0-0.2 K/mcL] 0.1 K/mcL (12/31/23 12:54 PM) MCV [80.0-94.0 fL] 69.5 fL *LOW* (12/31/23 12:54 PM) UA Urobilinogen [0.2] 0.2 (12/31/23 1:02 PM) RBC Morph [Normal] Abnormal *ABN* (12/31/23 12:54 PM) UA Bili [Negative] Negative (12/31/23 1:02 PM) UA Ketones [Negative] Negative (12/31/23 1:02 PM) AST [13-39 IntlUnit/L] 9 IntlUnit/L *LOW* (12/31/23 12:54 PM) ALT [7-52 IntlUnit/L] 9 IntlUnit/L (12/31/23 12:54 PM) MCHC [32.0-37.0 g/dL] 31.4 g/dL *LOW* (12/31/23 12:54 PM) Osmolality [275-295 mOsm/kg] 287 mOsm/kg (12/31/23 12:54 PM) Sodium Level [136-145 mmol/L] 135 mmol/L *LOW* (12/31/23 12:54 PM) UA Leuk Est [Negative] Negative (12/31/23 1:02 PM) Lymph Absolute [1.2-3.4 K/mcL] 1.1 K/mcL *LOW* (12/31/23 12:54 PM) UA Nitrite [Negative] Negative (12/31/23 1:02 PM) UA Glucose [Negative] 500 *ABN* (12/31/23 1:02 PM) Hct [42.0-52.0 %] 24.4 % 2 *CRIT* (12/31/23 12:54 PM) Microcyte 3+ *ABN* (12/31/23 12:54 PM) Lipase Level [11-82 unit/L] 20 unit/L 3 (12/31/23 12:54 PM) Hypochromia 2+ *ABN* (12/31/23 12:54 PM) Calcium Level [8.6-10.3 mg/dL] 9.1 mg/dL (12/31/23 12:54 PM) Mcminn Absolute [0.1-0.6 K/mcL] 0.7 K/mcL *HI* (12/31/23 12:54 PM) Albumin Level [3.5-5.7 g/dL] 3.5 g/dL (12/31/23 12:54 PM) Protein Total [6.4-8.9 g/dL] 7.3 g/dL (12/31/23 12:54 PM) UA Protein [Negative] 30 *ABN* (12/31/23 1:02 PM) MCH [27.0-31.0 pg] 21.8 pg *LOW* (12/31/23:54 PM) Magnesium Level [1.9-2.7 mg/dL] 2.0 mg/d L (12/31/23:54 PM) Neutro Absolute [1.4-6.5 K/mcL] 7.8 K/mc L *HI* (12/31/23:54 PM) Bilirubin Total [0.3-1.0 mg/dL] 0.4 mg/d L (12/31/23:54 PM) Hgb [14.0-18.0 g/dL] 7.7 g/dL *LOW* (12/31/23 12:54 PM) Alk Phos [34-104 IntlUnit/L] 64 IntlUnit /L (12/31/23 12:54 PM) UA Blood [Negative] Negative (12/31/23 1:02 PM) MPV [7.4-10.4 fL] 6.9 fL *LOW* (12/31/23:54 PM) UA Spec Grav [1.001-1.030] 1.015 (12/31/23 1:02 PM) Platelets [130-400 K/mcL] 429 K/mcL *HI* (12/31/23 12:54 PM) CO2 [21-31 mmol/L] 31 mmol/L (12/31/23 12:54 PM) Eos Absolute [0.0-0.2 K/mcL] 0.1 K/mcL (12/31/23:54 PM) UA pH [5.00-9.00] 6.00 (12/31/23 1:02 PM) UA Appear [Clear] Clear (12/31/23 1:02 PM) Chloride Level [98-107 mmol/L] 96 mmol/L *LOW* (12/31/23 12:54 PM) RBC Product Ready Done (12/31/23 1:32 PM) RDW-CV [11.5-14.5 %] 21.0 % *HI* (12/31/23 12:54 PM) A/G Ratio [1.0-2.5 g/dL] 0.9 g/dL *LOW* (12/31/23 12:54 PM) BUN/Creat Ratio [8.0-20.0] 18.6 (12/31/23 12:54 PM) Globulin [2.3-3.5 g/dL] 3.8 g/dL *HI* (12/31/23 12:54 PM) Stomatocyte 1+ *ABN* (12/31/23 12:54 PM) Slide Review Morph Only (12/31/23 12:54 PM) Urine Srce Clean Catch (12/31/23 1:02 PM) Plt Large Few *ABN* (12/31/23 12:54 PM) Anisocyte 2+ (12/31/23 12:54 PM) Creatinine Level [0.70-1.30 mg/dL] 2.80 mg/dL *HI* (12/31/23 12:54 PM) Plt Estimation Increased *ABN* (12/31/23 12:54 PM) Troponin-I HS [<=20 ng/L] 16 ng/L 4 (12/31/23 1:46 PM) 18 ng/L 5 (12/31/23 12:54 PM) ABO/Rh Echo O POS *Unknown* (12/31/23 1:18 PM) Anion Gap [3.0-12.0] 8.0 (12/31/23 12:54 PM) Eos, Auto [0.00-3.00 %] 1.40 % (12/31/23 12:54 PM) eGFR CKD-EPI [>=60 mL/min/1.73 m2] 27 mL /min/1.73 m2 *LOW* (12/31/23 12:54 PM) ABSC Echo Negative ABSC (12/31/23 1:18 PM) 1Interpretive Data: THERAPEUTIC INR RANGES FOR WARFARIN Uncomplicated venous thromboembolic disease 2-3 Lupus Anticoagulant and recurrent thrombosis 3-3.5 Mechanical prosthetic valve or recurrent thrombosis 2.5-3.5 2Result Comment: verified by repeat analysis Critical Result HCT:24.4 Called to and read back by PEARL HOGUE at: 12/31/2023 13:05:40 by:[facility]. 3Interpretive Data: N-fqxrfo-s-benzoquinone imine (meabolite of Acetaminophen) will generate erroneously low lipase results in samples for patients that have taken toxic doses of acetaminophen. 4Interpretive Data: The [facility] ACCESS high-sensitivity Troponin [...] heart disease from those who do not. 5Interpretive Data: The [facility] ACCESS high-sensitivity Troponin I [...] Exam Date Time Procedure Performing Provider Status 12/31/23 12:50 PM XR Chest 1 View Kim Correa (Verified) Notes: (XR Chest 1 View) Reason For Exam: chest pain XR Chest 1 View PROCEDURE INFORMATION: Exam: XR Chest Exam date and time: 12/31/2023 12:43 PM Age: 48 years old Clinical indication: Pain; Chest pressure; Additional info: Chest pain TECHNIQUE: Imaging protocol: Radiologic exam of the chest. Views: 1 view. COMPARISON: CR XR CHEST, 2 VIEWS 12/22/2023 12:04 AM FINDINGS: Tubes, catheters and devices: Dialysis catheter with tip at the right atrium. There are sternal wires consistent with previous sternotomy incision. Lungs: Left basilar atelectasis, stable from prior exam. Small left pleural effusion. Pleural spaces: See Lungs finding. There is no evidence of pneumothorax. Heart/Mediastinum: The heart demonstrates moderate diffuse enlargement. Bones/joints: Unremarkable. IMPRESSION: Left basilar atelectasis, stable from prior exam. Small left pleural effusion. THIS DOCUMENT HAS BEEN ELECTRONICALLY SIGNED BY LENIN JOSUE MD on 12/31/2023 01:15 PM Final Signed by: Lenin Josue MD Signed (Electronic Signature): 12/31/2023 1:15 pm Vital Signs Most recent to oldest [Reference Range]: 1 2 3 Temperature Oral [35.8-37.3 Deg C] 36.6 Deg C (12/31/23 3:05 PM) 36.5 Deg C (12/31/23 2:33 PM) Temperature Oral (DegF) [96.4-99.1 Deg F] 97.88 Deg F (12/31/23 3:05 PM) Temperature Temporal Artery [36-38 Deg C] 36.4 Deg C (12/31/23 12:33 PM) Peripheral Pulse Rate [60-100 bpm] 69 bpm (12/31/23 4:48 PM) 77 bpm (12/31/23 3:59 PM) 83 bpm (12/31/23 3:05 PM) Heart Rate Monitored [60-100 bpm] 82 bpm (12/31/23 4:45 PM) 77 bpm (12/31/23 3:59 PM) 71 bpm (12/31/23 2:29 PM) Respiratory Rate [12-24 br/min] 19 br/min (12/31/23 4:23 PM) 18 br/min (12/31/23 3:59 PM) 18 br/min (12/31/23 3:05 PM) Blood Pressure [90-120/60-80 mmHg] 133/80mmHg *HI* (12/31/23 4:45 PM) 156/83mmHg *HI* (12/31/23 3:45 PM) 174/76mmHg *HI* (12/31/23 3:05 PM) Mean Arterial Pressure, Cuff [65-140 mmHg] 109 mmHg (12/31/23 3:05 PM) 89 mmHg (12/31/23 2:33 PM) 99 mmHg (12/31/23 12:33 PM) Mean Arterial Pressure Cuff 95 mmHg (12/31/23 4:45 PM) 105 mmHg (12/31/23 3:45 PM) 93 mmHg (12/31/23 2:18 PM) Weight 117.93 kg (12/31/23 12:33 PM) Weight Dosing 117.930 kg (12/31/23 12:33 PM) Height 177 cm (12/31/23 12:33 PM) Body Mass Index 37.64 kg/m2 (12/31/23 12:33 PM) Social History Social History Type Response Tobacco Never tobacco user T obacco Use:. Sex Sex Representation Male (finding) Hospital Discharge Instructions Patient Education 12/31/2023 15:10:24 Chest Wall Pain Chest Wall Pain Chest wall pain is pain in or around the bones and muscles of your chest. Sometimes, an injury causes this pain. Excessive coughing or overuse of arm and chest muscles may also cause chest wall pain.Sometimes, the cause may not be known. This pain may take several weeks or longer to get better. Follow these instructions at home: Managing pain, stiffness, and swelling ??? If directed, put ice on the painful area: ??? Put ice in a plastic bag. ??? Place a towel between your skin and the bag. ??? Leave the ice on for 20 minutes, 2???3 times per day. Activity ??? Rest as told by your health care provider. ??? Avoid activities that cause pain. These include any activities that use your chest muscles or your abdominal and side muscles to lift heavy items. Ask your health care provider what activities are safe for you. General instructions ??? Take lfml-ykc-hpumxpw and prescription medicines only as told by your health care provider. ??? Do not use any products that contain nicotine or tobacco, such as cigarettes, e-cigarettes, andchewing tobacco. These can delay healing after injury. If you need help quitting, ask your health care provider. ??? Keep all follow-up visits as told by your health care provider. This is important. Contact a health care provider if: ??? You have a fever. ??? Your chest pain becomes worse. ??? You have new symptoms. Get help right away if: ??? You have nausea or vomiting. ??? You feel sweaty or light-headed. ??? You have a cough with mucus from your lungs (sputum) or you cough up blood. ??? You develop shortness of breath. These symptoms may represent a serious problem that is an emergency. Do not wait to see if the symptoms will go away. Get medical help right away. Call your local emergency services (911 in the [place] Do not drive yourself to the hospital. Summary ??? Chest wall pain is pain in or around the bones and muscles of your chest. ??? Depending on the cause, it may be treated with ice, rest, medicines, and avoiding activities that cause pain. ??? Contact a health care provider if you have a fever, worsening chest pain, or new symptoms. ??? Get help right away if you feel light-headed or you develop shortness of breath. These symptomsmay be an emergency. This information is not intended to replace advice given to you by your health care provider. Make sure you discuss any questions you have with your health care provider. Document Revised: 04/20/2021 Document Reviewed: 04/23/2021 [employer] Patient Education ?? 2022 [employer]. 12/31/2023 15:10:23 Anemia Anemia Anemia is a condition in which there are not enough red blood cells or hemoglobin in the blood. Hemoglobin is a substance in red blood cells that carries oxygen. When you do not have enough red blood cells or hemoglobin (are anemic), your body cannot get enoughoxygen, and your organs may not work properly. As a result, you may feel very tired or have other problems. What are the causes? Common causes of anemia include: ??? Excessive bleeding. Anemia can be caused by excessive bleeding inside or outside the body, including bleeding from the intestines or from heavy menstrual periods in females. ??? Poor nutrition. ??? Long-lasting (chronic) kidney, thyroid, and liver disease. ??? Bone marrow disorders, spleen problems, and blood disorders. ??? Cancer and treatments for cancer. ??? Human immunodeficiency virus (HIV) and acquired immunodeficiency syndrome (AIDS). ??? Infections, medicines, and autoimmune disorders that destroy red blood cells. What are the signs or symptoms? Symptoms of this condition include: ??? Minor weakness. ??? Dizziness. ??? Headache, or difficulties concentrating and sleeping. ??? Heartbeats that feel irregular or faster than normal (palpitations). ??? Shortness of breath, especially with exercise. ??? Pale skin, lips, and nails, or cold hands and feet. ??? Upset stomach (indigestion) and nausea. Symptoms may occur suddenly or develop slowly. If your anemia is mild, you may not have symptoms. How is this diagnosed? This condition is diagnosed based on blood tests, your medical history, and a physical exam. In some cases, a test may be needed in which cells are removed from the soft tissue inside of a bone and looked at under a microscope (bone marrow biopsy). Your health care provider may also check your stool (feces) for blood and may do more testing to look for the cause of your bleeding. Other tests may include: ??? Imaging tests, such as a CT scan or MRI. ??? A procedure to see inside your esophagus and stomach (endoscopy). The esophagus is the part of the body that moves food from your mouth to your stomach. ??? A procedure to see inside your colon and rectum (colonoscopy). How is this treated? Treatment for this condition depends on the cause. If you continue to lose a lot of blood, you may need to be treated at a hospital. Treatment may include: ??? Taking supplements of iron, vitamin B12, or folic acid. ??? Taking a hormone medicine (erythropoietin) that can help to stimulate red blood cell growth. ??? Receiving donated blood through an IV (blood transfusion). This may be needed if you lose a lotof blood. ??? Making changes to your diet. ??? Having surgery to remove your spleen. Follow these instructions at home: ??? Take nuuz-iax-ynabhnt and prescription medicines only as told by your health care provider. ??? Take supplements only as told by your health care provider. ??? Follow any diet instructions that you were given by your health care provider. ??? Keep all follow-up visits. Your health care provider will want to recheck your blood tests. Contact a health care provider if: ??? You develop new bleeding anywhere in the body. ??? You are very weak. Get help right away if: ??? You are short of breath. ??? You have pain in your abdomen or chest. ??? You are dizzy or feel faint. ??? You have trouble concentrating. ??? You have bloody stools, black stools, or tarry stools. ??? You vomit repeatedly or you vomit up blood. These symptoms may be an emergency. Get help right away. Call 911. ??? Do not wait to see if the symptoms will go away. ??? Do not drive yourself to the hospital. Summary ??? Anemia is a condition in which you do not have enough red blood cells or enough of a substance in your red blood cells that carries oxygen. ??? Symptoms may occur suddenly or develop slowly. ??? If your anemia is mild, you may not have symptoms. ??? This condition is diagnosed with blood tests, a medical history, and a physical exam. Other tests may be needed. ??? Treatment for this condition depends on the cause of the anemia. This information is not intended to replace advice given to you by your health care provider. Make sure you discuss any questions you have with your health care provider. Document Revised: 05/02/2022 Document Reviewed: 05/02/2022 [employer] Patient Education ?? 2022 [employer] App. Follow Up Care 12/31/2023 12:24:08 With:Follow-up with your primary care Address: When:1 week Comments:Follow-up with your primary care as needed, they will be able to reevaluate if necessaryReturn to ED if concerns Physician Emergency department Note * GLENIS Jasso: PERFORM Event Display: ED Note Physician Authored Date: [id number] SHOSHANA SALGADO :1975 Age:48 years Sex:Male Visit Date:12/31/2023 Basic Information Time Seen: GLENIS Jasso / 12/31/2023 12:25 Chief Complaint LEFT arm pain, radiating into LEFT chest, neck and shoulder since this AM 0630. Pain woke him from sleep. Cardiax hx with bypass and stents. Currently on dialysis. Pain is constant. History Of Present Illness: Patient is a 48-year-old male with a??history of diabetes, ACS,??peritoneal dialysis,??stent placement, CABG, chronic anemia. ??He presents with left-sided chest discomfort radiating to his left arm.??He notes that??yesterday he was more active than usual and feels as though he may have overdid activities, he notes that his pain is reproducible and primarily in the pectoral and shoulder region. ??It does travel up into his neck. ??He has had no dizziness shortness of breath or??other??symptomsthat are worrisome. ??He continues to be on his blood thinners as well as??his Plavix. Patient notes that he receives??peritoneal dialysis 3 times a week??and is slated for tomorrow. ??He occasionally gets??erythropoietin??during dialysis but has not had it recently. Patient does still produce urine is having normal bowel movements and does not endorse any black ortarry stools. Review of Systems: See HPI Physical Exam Vitals & Measurements T:??36.6?C ??(Oral)?? HR:??69??(Peripheral)?? RR:??19?? BP:??133/80?? SpO2:??100%?? HT:??177??cm?? WT:??117.93??kg?? BMI:??37.64?? O2 Therapy:??Room air?? Patient alert oriented age-appropriate well-nourished nontoxic Normocephalic atraumatic Neck supple nontender EOM intact, PERRLA, sclera nonicteric Clear to auscultation bilaterally Regular rate and rhythm no murmurs Abdominal exam reveals normal bowel sounds, negative rebound tenderness, negative psoas sign Left-sided chest discomfort upon palpation, there is tenderness over the pectoral region traveling into the??left upper arm. ??There is some neck tenderness without??lymphadenopathy upon palpation. Appropriate mood and affect Medical Decision Making: Patient arrives to the emergency department and is nontoxic but in moderate distress At this time??laboratory evaluation is employed and rules out ACS.?? EKG??reveals no acute findings??with no ST-T changes At this time??patient's laboratory evaluation??shows a hemoglobin of 7.7 with previous being in themid 9 range. ??Given this I felt that patient needed resuscitation in regards to??whole blood. ??Heis given 1 unit of matched blood. Patient feels significantly better??post??this administration. ??He is able to eat, ambulate with success and is in no acute distress. ??He is given a single Robaxin??which will be sent to the pharmacy for him to use for potential muscle strain??and he will follow-up with all his providers as scheduled. ??Patient agrees with discharge. Procedure No Qualifying Data Assessment/Plan 1.??Anemia??D64.9 ??Patient will continue to have this monitored over the next several weeks and will return as needed for any signs of??worsening condition. Ordered: methocarbamol 750 mg oral tablet, 750 mg = 1 tab, Oral, TID, X 5 days, # 15 tab, 0 Refill(s), 01/05/24 16:09:00 EST, Pharmacy: [id number], 177, cm, 12/31/23 12:33:00 EST, Height, 117.93, kg, 12/31/23 12:35:00 EST, Weight Dosing Discharge Patient, 12/31/23 16:09:00 EST, Home Independently ?? 2.??Chest wall pain??R07.89 ??In regards to patient chest wall pain relief I feel that this is not cardiac in nature given his troponins being flat.?? At this time he understands that??there is still possibility of this being ademand type ischemia due to the fact that there is??a significant lowering of his hemoglobin??he understands that we have replenished this but have not fully replenished.?? He will continue to monitor and discussed with his hemodialysis team??to discuss any further??evaluations or interventions. ??He will return as needed for any new or worsening conditions Ordered: methocarbamol 750 mg oral tablet, 750 mg = 1 tab, Oral, TID, X 5 days, # 15 tab, 0 Refill(s), 01/05/24 16:09:00 EST, Pharmacy: [id number], 177, cm, 12/31/23 12:33:00 EST, Height, 117.93, kg, 12/31/23 12:35:00 EST, Weight Dosing Discharge Patient, 12/31/23 16:09:00 EST, Home Independently ?? Orders: Crossmatch, Blood, Stat, Collected, 12/31/23 13:18:00 EST, Once, Nurse collect, [id number] CV Electrocardiogram 12 Lead, 12/31/23 12:30:00 EST, Routine, Reason: Chest Pain, Stop date and time 12/31/23 12:30:00 EST, ORD_SET_REQ_DT_RANGE, [facility] Person Id Vital Signs, 12/31/23 13:30:00 EST, Once, Stop date 12/31/23 13:30:00 EST, Obtain baseline before transfusion Vital Signs, 12/31/23 13:31:00 EST, Constant order, Obtain vitals 15 minutes after initiation, thenhourly during infusion, then at discontinuation of unit Patient Education Chest Wall Pain Anemia Follow Up With When Contact Information Follow-up with your primary care Within 1 week Additional Instructions: Follow-up with your primary care as needed, they will be able to reevaluate if necessary Return to ED if concerns Medication Reconciliation New Prescription methocarbamol (methocarbamol 750 mg oral tablet)1 tab Oral (given by mouth) 3 times a day for 5 Days. Refills: 0. ?? Unchanged [...] by mouth) 2 times a day. ?? cholecalciferol (Vitamin D3 5000 intl units [...] 1 TABLET BY MOUTH ONCE DAILY. ?? sacubitril-valsartan (Entresto 24 mg-26 mg oral tablet)1 tab Oral (given by mouth) 2 times a day. ?? sevelamer (sevelamer carbonate 800 mg oral [...] Procedure/Surgical History ???Stent placement Medication Administration Given Robaxin, 1000 mg, Oral Allergies Diphendramine HCL??(Hyperactivity level) melatonin??(Restless legs syndrome) Social History Alcohol Current, Beer, 1-2 times per month Electronic Cigarette/Vaping Electronic Cigarette Use: Never. Home/Environment Lives with Spouse. Living situation: Home/Independent. Substance Use Never Tobacco Never tobacco user Tobacco Use:. Diagnostic Results XR Chest 1 View 12/31/2023 13:15 EST XR Chest 1 View ?? 12/31/23 12:43:54 PROCEDURE INFORMATION: Exam: XR Chest Exam date and time: 12/31/2023 12:43 PM Age: 48 years old Clinical indication: Pain; Chest pressure; Additional info: Chest pain ?? TECHNIQUE: Imaging protocol: Radiologic exam of the chest. Views: 1 view. ?? COMPARISON: CR XR CHEST, 2 VIEWS 12/22/2023 12:04 AM ?? FINDINGS: Tubes, catheters and devices: Dialysis catheter with tip at the right atrium. There are sternal wires consistent with previous sternotomy incision. ?? Lungs: Left basilar atelectasis, stable from prior exam. Small left pleural effusion. Pleural spaces: See???Lungs?? finding. There is no evidence of pneumothorax. ?? Heart/Mediastinum: The heart demonstrates moderate diffuse enlargement. Bones/joints: Unremarkable. ?? IMPRESSION: Left basilar atelectasis, stable from prior exam. Small left pleural effusion. ? THIS DOCUMENT HAS BEEN ELECTRONICALLY SIGNED BY LENIN JOSUE MD on 12/31/2023 01:15 PM ?? Signed By: Lenin Josue MD Lab Results CBC and Differential?? LATEST RESULTS?? HISTORICAL RESULTS?? WBC?? 12/31/23 12:54?? 9.9?? 12/21/23?? 10.2?? RBC?? 12/31/23 12:54?? 3.52 ??Low?? 12/21/23?? 4.18 ??Low?? Hgb?? 12/31/23 12:54?? 7.7 ??Low?? 12/21/23?? 9.0 ??Low?? Hct?? 12/31/23 12:54?? 24.4 ??Critical?? 12/21/23?? 29.5 ??Low?? MCV?? 12/31/23 12:54?? 69.5 ??Low?? 12/21/23?? 70.5 ??Low?? MCH?? 12/31/23 12:54?? 21.8 ??Low?? 12/21/23?? 21.4 ??Low?? MCHC?? 12/31/23 12:54?? 31.4 ??Low?? 12/21/23?? 30.4 ??Low?? RDW-CV?? 12/31/23 12:54?? 21.0 ??High?? 12/21/23?? 21.5 ??High?? Platelets?? 12/31/23 12:54?? 429 ??High?? 12/21/23?? 416 ??High?? MPV?? 12/31/23 12:54?? 6.9 ??Low?? 12/21/23?? 8.0?? Neutro Auto?? 12/31/23 12:54?? 78.7 ??High?? 12/21/23?? 77.2 ??High?? Lymph Auto?? 12/31/23 12:54?? 11.3 ??Low?? 12/21/23?? 8.9 ??Low?? Mcminn Auto?? 12/31/23 12:54?? 7.5?? 12/21/23?? 11.4 ??High?? Eos, Auto?? 12/31/23 12:54?? 1.40?? 12/21/23?? 1.10?? Basophil Auto?? 12/31/23 12:54?? 1.1 ??High?? 12/21/23?? 1.4 ??High?? Neutro Absolute?? 12/31/23 12:54?? 7.8 ??High?? 12/21/23?? 7.9 ??High?? Lymph Absolute?? 12/31/23 12:54?? 1.1 ??Low?? 12/21/23?? 0.9 ??Low?? Mcminn Absolute?? 12/31/23 12:54?? 0.7 ??High?? 12/21/23?? 1.2 ??High?? Eos Absolute?? 12/31/23 12:54?? 0.1?? 12/21/23?? 0.1?? Baso Absolute?? 12/31/23 12:54?? 0.1?? 12/21/23?? 0.10?? RBC Morph?? 12/31/23 12:54?? Abnormal Abnormal?? 12/21/23?? Abnormal Abnormal?? Anisocyte?? 12/31/23 12:54?? 2+?? 12/21/23?? 3+?? Hypochromia?? 12/31/23 12:54?? 2+ Abnormal?? 12/21/23?? 2+ Abnormal?? Microcyte?? 12/31/23 12:54?? 3+ Abnormal?? 12/21/23?? 3+ Abnormal?? Plt Estimation?? 12/31/23 12:54?? Increased Abnormal?? 12/21/23?? Increased Abnormal?? Plt Large?? 12/31/23 12:54?? Few Abnormal?? 12/21/23?? Few Abnormal?? Stomatocyte?? 12/31/23 12:54?? 1+ Abnormal?? 03/08/23?? 1+ Abnormal?? Slide Review?? 12/31/23 12:54?? Morph Only?? 12/21/23?? Morph Only? Coagulation?? LATEST RESULTS?? HISTORICAL RESULTS?? Prothrombin Time?? 12/31/23 12:54?? 10.6?? 09/11/23?? 9.7?? INR?? 12/31/23 12:54?? 1.0?? 09/11/23?? 1.0? Routine Chemistry?? LATEST RESULTS?? HISTORICAL RESULTS?? Sodium Level?? 12/31/23 12:54?? 135 ??Low?? 12/21/23?? 134 ??Low?? Potassium Level?? 12/31/23 12:54?? 4.3?? 12/21/23?? 4.0?? Chloride Level?? 12/31/23 12:54?? 96 ??Low?? 12/21/23?? 97 ??Low?? CO2?? 12/31/23 12:54?? 31?? 12/21/23?? 27?? Alk Phos?? 12/31/23 12:54?? 64?? 12/10/23?? 89?? AST?? 12/31/23 12:54?? 9 ??Low?? 12/10/23?? 46 ??High?? ALT?? 12/31/23 12:54?? 9?? 12/10/23?? 66 ??High?? BUN?? 12/31/23 12:54?? 52 ??High?? 12/21/23?? 48 ??High?? Glucose Level?? 12/31/23 12:54?? 157 ??High?? 12/21/23?? 263 ??High?? Creatinine Level?? 12/31/23 12:54?? 2.80 ??High?? 12/21/23?? 4.10 ??High?? BUN/Creat Ratio?? 12/31/23 12:54?? 18.6?? 12/21/23?? 11.7?? eGFR CKD-EPI?? 12/31/23 12:54?? 27 ??Low?? 12/21/23?? 17 ??Low?? Calcium Level?? 12/31/23 12:54?? 9.1?? 12/21/23?? 9.0?? Protein Total?? 12/31/23 12:54?? 7.3?? 12/10/23?? 6.7?? Albumin Level?? 12/31/23 12:54?? 3.5?? 12/10/23?? 3.5?? Globulin?? 12/31/23 12:54?? 3.8 ??High?? 12/10/23?? 3.2?? A/G Ratio?? 12/31/23 12:54?? 0.9 ??Low?? 12/10/23?? 1.1?? Bilirubin Total?? 12/31/23 12:54?? 0.4?? 12/10/23?? 0.3?? Anion Gap?? 12/31/23 12:54?? 8.0?? 12/21/23?? 10.0?? Lipase Level?? 12/31/23 12:54?? 20?? 09/11/23?? 16?? Magnesium Level?? 12/31/23 12:54?? 2.0?? 12/21/23?? 2.3?? Osmolality?? 12/31/23 12:54?? 287?? 12/21/23?? 290? Cardiac Isoenzymes?? LATEST RESULTS?? HISTORICAL RESULTS?? Troponin-I HS?? 12/31/23 13:46?? 16?? 12/10/23?? 36 ??High? UA Macroscopic?? LATEST RESULTS?? HISTORICAL RESULTS?? Urine Srce?? 12/31/23 13:02?? Clean Catch?? 09/11/23?? Clean Catch?? UA Color?? 12/31/23 13:02?? LIGHT YELL?? 09/11/23?? Yellow?? UA Appear?? 12/31/23 13:02?? Clear?? 09/11/23?? Clear?? UA Glucose?? 12/31/23 13:02?? 500 Abnormal?? 09/11/23?? >=1000?? UA Bili?? 12/31/23 13:02?? Negative?? 09/11/23?? Negative?? UA Ketones?? 12/31/23 13:02?? Negative?? 09/11/23?? Negative?? UA Spec Grav?? 12/31/23 13:02?? 1.015?? 09/11/23?? 1.020?? UA Blood?? 12/31/23 13:02?? Negative?? 09/11/23?? Trace Abnormal?? UA pH?? 12/31/23 13:02?? 6.00?? 09/11/23?? 6.00?? UA Protein?? 12/31/23 13:02?? 30 Abnormal?? 09/11/23?? >=300?? UA Urobilinogen?? 12/31/23 13:02?? 0.2?? 09/11/23?? 0.2?? UA Nitrite?? 12/31/23 13:02?? Negative?? 09/11/23?? Negative?? UA Leuk Est?? 12/31/23 13:02?? Negative?? 09/11/23?? Negative? Transfusion Medicine Testing?? LATEST RESULTS?? ABO/Rh Echo?? 12/31/23 13:18?? O POS?? ABSC Echo?? 12/31/23 13:18?? Negative ABSC?? RBC Product Ready?? 12/31/23 13:32?? Done? Crossmatch Summary?? LATEST RESULTS?? Crossmatch - IS?? 12/31/23 13:18?? Compatible? Electronically Signed on 12/31/2023 16:58 EST [facility] Emergency department Discharge instructions * GLENIS Jasso: PERFORM Event Display: ED Discharge Information Authored Date: [id number] SHOSHANA SALGADO :1975 Age:48 years Sex:Male Visit Date:12/31/2023 Discharge Instructions We would like to thank you for allowing us to assist you with your healthcare needs. The following includes patient education materials and information regarding your injury/illness. Diagnosis from Today's Visit Anemia Chest wall pain Discharge Vitals Temperature??(Oral) 97.9 ??F (36.6 ??C) Heart Rate??(Peripheral) 83 Respiratory Rate?? 18 Blood Pressure?? 174/76?? SpO2?? 100% Height?? 69.69 in (177 cm) Weight?? 260.04 lb (117.93 kg) BMI?? 37.64 Allergies Diphendramine HCL??(Hyperactivity level) melatonin??(Restless legs syndrome) What to Do Next Instructions from Your Care Team Tylenol Robaxin as needed Follow-up with??your dialysis and with your primary care as scheduled Return to the emergency department for any new or worsening condition You Need to Schedule the Following Appointments Follow Up with??Follow-up with your primary care When:??Within 1 week Why: Follow-up with your primary care as needed, they will be able to reevaluate if necessary Return to ED if concerns You were treated today on an emergency [...] Much When Why Instructions Next Dose New methocarbamol (methocarbamol 750 mg oral tablet) 1 tab Oral (given by mouth) 3 times a day Anemia Chest wall pain Duration: 5 Days Pickup at [facility] [id number] Unchanged amiodarone (amiodarone 200 mg oral tablet) [...] by mouth) 2 times a day Unchanged cholecalciferol (Vitamin D3 5000 intl units [...] TABLET BY MOUTH ONCE DAILY ?? Unchanged sacubitril-valsartan (Entresto 24 mg-26 mg oral tablet) 1 tab Oral (given by mouth) 2 times a day Unchanged sevelamer (sevelamer carbonate 800 mg oral tablet) TAKE 1 TABLET BY MOUTH THREE TIMES DAILY WITH MEALS ?? Unchanged temazepam (temazepam 7.5 mg oral capsule) 1 Capsules Oral (given by mouth) Every night at bedtime as needed for as needed for sleep Unchanged torsemide (torsemide 20 mg oral tablet) 1 tab Oral (given by mouth) Every day Pharmacy Information [facility] [id number], [place] [phone] Education Materials Chest Wall Pain Chest wall pain is pain in or around the bones and muscles of your chest. Sometimes, an injury causes this pain. Excessive coughing or overuse of arm and chest muscles may also cause chest wall pain.Sometimes, the cause may not be known. This pain may take several weeks or longer to get better. Follow these instructions at home: Managing pain, stiffness, and swelling ? If directed, put ice on the painful area: ? Put ice in a plastic bag. ? Place a towel between your skin and the bag. ? Leave the ice on for 20 minutes, 2???3 times per day. Activity ? Rest as told by your health care provider. ? Avoid activities that cause pain. These include any activities that use your chest muscles or your abdominal and side muscles to lift heavy items. Ask your health care provider what activities are safe for you. General instructions ? Take [id number] and prescription medicines only as told by your health care provider. ? Do not use any products that contain nicotine or tobacco, such as cigarettes, e- cigarettes, and chewing tobacco. These can delay healing after injury. If you need help quitting, ask your health care provider. ? Keep all follow-up visits as told by your health care provider. This is important. Contact a health care provider if: ? You have a fever. ? Your chest pain becomes worse. ? You have new symptoms. Get help right away if: ? You have nausea or vomiting. ? You feel sweaty or light-headed. ? You have a cough with mucus from your lungs (sputum) or you cough up blood. ? You develop shortness of breath. These symptoms may represent a serious problem that is an emergency. Do not wait to see if the symptoms will go away. Get medical help right away. Call your local emergency services (911 in the [place] Do not drive yourself to the hospital. Summary ? Chest wall pain is pain in or around the bones and muscles of your chest. ? Depending on the cause, it may be treated with ice, rest, medicines, and avoiding activities that cause pain. ? Contact a health care provider if you have a fever, worsening chest pain, or new symptoms. ? Get help right away if you feel light-headed or you develop shortness of breath. These symptoms maybe an emergency. This information is not intended to replace advice given to you by your health care provider. Make sure you discuss any questions you have with your health care provider. Document Revised: 04/20/2021 Document Reviewed: 04/23/2021 [employer] Patient Education ?? 2022 [employer] Anemia Anemia is a condition in which there are not enough red blood cells or hemoglobin in the blood. Hemoglobin is a substance in red blood cells that carries oxygen. When you do not have enough red blood cells or hemoglobin (are anemic), your body cannot get enoughoxygen, and your organs may not work properly. As a result, you may feel very tired or have other problems. What are the causes? Common causes of anemia include: ? Excessive bleeding. Anemia can be caused by excessive bleeding inside or outside the body, including bleeding from the intestines or from heavy menstrual periods in females. ? Poor nutrition. ? Long-lasting (chronic) kidney, thyroid, and liver disease. ? Bone marrow disorders, spleen problems, and blood disorders. ? Cancer and treatments for cancer. ? Human immunodeficiency virus (HIV) and acquired immunodeficiency syndrome (AIDS). ? Infections, medicines, and autoimmune disorders that destroy red blood cells. What are the signs or symptoms? Symptoms of this condition include: ? Minor weakness. ? Dizziness. ? Headache, or difficulties concentrating and sleeping. ? Heartbeats that feel irregular or faster than normal (palpitations). ? Shortness of breath, especially with exercise. ? Pale skin, lips, and nails, or cold hands and feet. ? Upset stomach (indigestion) and nausea. Symptoms may occur suddenly or develop slowly. If your anemia is mild, you may not have symptoms. How is this diagnosed? This condition is diagnosed based on blood tests, your medical history, and a physical exam. In some cases, a test may be needed in which cells are removed from the soft tissue inside of a bone and looked at under a microscope (bone marrow biopsy). Your health care provider may also check your stool (feces) for blood and may do more testing to look for the cause of your bleeding. Other tests may include: ? Imaging tests, such as a CT scan or MRI. ? A procedure to see inside your esophagus and stomach (endoscopy). The esophagus is the part of the body that moves food from your mouth to your stomach. ? A procedure to see inside your colon and rectum (colonoscopy). How is this treated? Treatment for this condition depends on the cause. If you continue to lose a lot of blood, you may need to be treated at a hospital. Treatment may include: ? Taking supplements of iron, vitamin B12, or folic acid. ? Taking a hormone medicine (erythropoietin) that can help to stimulate red blood cell growth. ? Receiving donated blood through an IV (blood transfusion). This may be needed if you lose a lot of blood. ? Making changes to your diet. ? Having surgery to remove your spleen. Follow these instructions at home: ? Take qysd-oca-exyylok and prescription medicines only as told by your health care provider. ? Take supplements only as told by your health care provider. ? Follow any diet instructions that you were given by your health care provider. ? Keep all follow-up visits. Your health care provider will want to recheck your blood tests. Contact a health care provider if: ? You develop new bleeding anywhere in the body. ? You are very weak. Get help right away if: ? You are short of breath. ? You have pain in your abdomen or chest. ? You are dizzy or feel faint. ? You have trouble concentrating. ? You have bloody stools, black stools, or tarry stools. ? You vomit repeatedly or you vomit up blood. These symptoms may be an emergency. Get help right away. Call 911. ? Do not wait to see if the symptoms will go away. ? Do not drive yourself to the hospital. Summary ? Anemia is a condition in which you do not have enough red blood cells or enough of a substance in your red blood cells that carries oxygen. ? Symptoms may occur suddenly or develop slowly. ? If your anemia is mild, you may not have symptoms. ? This condition is diagnosed with blood tests, a medical history, and a physical exam. Other tests may be needed. ? Treatment for this condition depends on the cause of the anemia. This information is not intended to replace advice given to you by your health care provider. Make sure you discuss any questions you have with your health care provider. Document Revised: 05/02/2022 Document Reviewed: 05/02/2022 [employer] Patient Education ?? 2022 [employer] Tests Performed Radiology XR Chest 1 View 12/31/2023 13:15 EST Medications and Immunizations Administered Given Robaxin, 1000 mg, Oral Lab Test Name Test Result Date/Time WBC 9.9 K/mcL 12/31/2023 12:54 EST RBC 3.52 Million/mcL 12/31/2023 12:54 EST Hgb 7.7 g/dL 12/31/2023 12:54 EST Hct 24.4 % 12/31/2023 12:54 EST MCV 69.5 fL 12/31/2023 12:54 EST MCH 21.8 pg 12/31/2023 12:54 EST MCHC 31.4 g/dL 12/31/2023 12:54 EST RDW-CV 21.0 % 12/31/2023 12:54 EST Platelets 429 K/mcL 12/31/2023 12:54 EST MPV 6.9 fL 12/31/2023 12:54 EST Neutro Auto 78.7 % 12/31/2023 12:54 EST Lymph Auto 11.3 % 12/31/2023 12:54 EST Mcminn Auto 7.5 % 12/31/2023 12:54 EST Eos, Auto 1.40 % 12/31/2023 12:54 EST Basophil Auto 1.1 % 12/31/2023 12:54 EST Neutro Absolute 7.8 K/mcL 12/31/2023 12:54 EST Lymph Absolute 1.1 K/mcL 12/31/2023 12:54 EST Mcminn Absolute 0.7 K/mcL 12/31/2023 12:54 EST Eos Absolute 0.1 K/mcL 12/31/2023 12:54 EST Baso Absolute 0.1 K/mcL 12/31/2023 12:54 EST RBC Morph Abnormal 12/31/2023 12:54 EST Anisocyte 2+ 12/31/2023 12:54 EST Hypochromia 2+ 12/31/2023 12:54 EST Microcyte 3+ 12/31/2023 12:54 EST Plt Estimation Increased 12/31/2023 12:54 EST Plt Large Few 12/31/2023 12:54 EST Stomatocyte 1+ 12/31/2023 12:54 EST Slide Review Morph Only 12/31/2023 12:54 EST Prothrombin Time 10.6 seconds 12/31/2023 12:54 EST INR 1.0 12/31/2023 12:54 EST Sodium Level 135 mmol/L 12/31/2023 12:54 EST Potassium Level 4.3 mmol/L 12/31/2023 12:54 EST Chloride Level 96 mmol/L 12/31/2023 12:54 EST CO2 31 mmol/L 12/31/2023 12:54 EST Alk Phos 64 IntlUnit/L 12/31/2023 12:54 EST AST 9 IntlUnit/L 12/31/2023 12:54 EST ALT 9 IntlUnit/L 12/31/2023 12:54 EST BUN 52 mg/dL 12/31/2023 12:54 EST Glucose Level 157 mg/dL 12/31/2023 12:54 EST Creatinine Level 2.80 mg/dL 12/31/2023 12:54 EST BUN/Creat Ratio 18.6 12/31/2023 12:54 EST eGFR CKD-EPI 27 mL/min/1.73 m2 12/31/2023 12:54 EST Calcium Level 9.1 mg/dL 12/31/2023 12:54 EST Protein Total 7.3 g/dL 12/31/2023 12:54 EST Albumin Level 3.5 g/dL 12/31/2023 12:54 EST Globulin 3.8 g/dL 12/31/2023 12:54 EST A/G Ratio 0.9 g/dL 12/31/2023 12:54 EST Bilirubin Total 0.4 mg/dL 12/31/2023 12:54 EST Anion Gap 8.0 12/31/2023 12:54 EST Lipase Level 20 unit/L 12/31/2023 12:54 EST Magnesium Level 2.0 mg/dL 12/31/2023 12:54 EST Osmolality 287 mOsm/kg 12/31/2023 12:54 EST Troponin-I HS 16 ng/L 12/31/2023 13:46 EST Urine Srce Clean Catch 12/31/2023 13:02 EST UA Color LIGHT YELL 12/31/2023 13:02 EST UA Appear CLEAR. 12/31/2023 13:02 EST UA Glucose 500 12/31/2023 13:02 EST UA Bili NEGATIVE 12/31/2023 13:02 EST UA Ketones NEGATIVE 12/31/2023 13:02 EST UA Spec Grav 1.015 12/31/2023 13:02 EST UA Blood NEGATIVE 12/31/2023 13:02 EST UA pH 6.00 12/31/2023 13:02 EST UA Protein 30 12/31/2023 13:02 EST UA Urobilinogen 0.2 12/31/2023 13:02 EST UA Nitrite NEGATIVE 12/31/2023 13:02 EST UA Leuk Est NEGATIVE 12/31/2023 13:02 EST ABO/Rh Echo O POS 12/31/2023 13:18 EST ABSC Echo Negative ABSC 12/31/2023 13:18 EST RBC Product Ready Done 12/31/2023 13:32 EST Crossmatch - IS Compatible 12/31/2023 13:18 EST Patient/Outreach Professional Signature Patient Name:SHOSHANA SALGADO I have received this information and my questions have been answered. Patient/Outreach Professional Name: Patient/Outreach Professional Signature: Relationship to Patient: Witness Name/Signature: Date: Electronically Signed on: 12/31/2023 16:10 ESTSigned by: Patient Care team information Care Team Related Persons Name: GRETTA SALGADO Name: GRETTA SALGADO Name: AARTI SALGADO Name: AARTI SALGADO Insurance Providers Guarantor name: SHOSHANA SALGADO Health Plan Information #: 1 Payer: JO ANN HOLBROOK Member Number: [id number] Policy Number: NA Health Plan Information #: 2 Payer: JO ANN HOLBROOK Member Number: [id number] Policy Number: NA
--- OUTSIDE RECORDS SUMMARY | 2024-01-04 13:06 | XMS_ITS ---
Author Name [facility] Address [address] [place] [id number] Phone [phone] Organization [facility] e, NA DOCUMENT DISCLAIMER Multiple document versions may exist, please be sure you review the latest version. The information in the [facility] Continuity of Care Document represents a summary of certain health and medical information. It may not contain the complete medical history for the patient and should be independently verified. The represented time in the document is Eastern Time. 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, or end stage renal disease I13.2 Active Octo gaby 2023 Liver disease, unspecified K76.9 Active O ctober 2023 Abnormality of albumin R77.0 Active Octob er 2023 Disorder of phosphorus metabolism, unspecified E83.30 Active December 20, 2023 Unspecified disorder of calcium metabolism E83.50 Active December 20, 2023 Iron deficiency anemia, unspecified D50.9 Activ e December 20, 2023 Secondary hyperparathyroidism of renal origin N25.81 Active December 20, 2023 Encounter for change or rohan magalis of nonsurgical wound dressing Z48.00 Active December 20, 2023 Coagulation defect, unspecified D68.9 Active December 20, 2023 Diarrhea, unspecified R19.7 Active Octobe r 2023 Encounter for screening for respiratory tuberculosis Z 11.1 Active December 20, 2023 Anaphylactic shock, unspecified, initial encounter T78 .2XXA Active December 20, 2023 Pruritus, unspecified L29.9 Active Octobe r 2023 Anxiety disorder, unspecified F41.9 Active December 20, 2023 Allergy, unspecified, initial encounter T78.40XA A ctive December 20, 2023 Shortness of breath R06.02 Active December 20, 2023 Fever, unspecified R50.9 Active November 222023 Hypoglycemia, unspecified E16.2 Active Oc tober 2023 Hypotension, unspecified I95.9 Active Nov yulisa 2023 Pain, unspecified R52 Active November Chest pain, unspecified R07.9 Active Novo 2023 Cramp and spasm R25.2 Active December 20, 2023 Nausea with vomiting, unspecified R11.2 Active December 20, 2023 Chronic kidney disease, unspecified N18.9 Activ e December 20, 2023 End stage renal disease N18.6 Active 2023 Dependence on renal dialysis Z99.2 Active December 19, 2023 Personal history of nicotine dependence Z87.891 A ctive December 19, 2023 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 Z79 .84 Active December 19, 2023 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 (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) use of insulin Z79.4 Active December 19, 2023 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 (current) use of antithrombotics/antiplatelets Z79.02 Active November [facility] (current) use of anticoagulants Z79.01 Active December 19, 2023 Unspecified atrial fibrillation I48.91 Active December 19, 2023 Old myocardial infarction I25.2 Active Oc tober 2023 Atherosclerotic heart diseas e of [place] coronary artery without angina pectoris I25.10 Active November 212023 Body mass index [BMI] 40.0-44.9, adult Z68.41 Ac tive 2023 Chronic diastolic (congestive) heart failure I50.32 Active 2023 Obesity, class 3 E66.813 Active 2023 ALLERGIES AND ADVERSE REACTIONS No Known Allergies SOCIAL HISTORY Tobacco Use Status Tobacco Type Unknown if ever consumed tobacco - Caregiver Characteristics No Information Available Characteristics of Home environment No Information Available MEDICATIONS Prescribed Medications for Dialysis Treatments Medication Instructions Dosage Route Start Date End Date Stat us Heparin Sodium (Porcine) 1,000 Units/mL Catheter Lock Arterial Post Dialysis, Every Treatment 2000 units Arterial Red Port December 22, 2023 December 20, 2024 Active Heparin Sodium (Porcine) 1,000 Units/mL Catheter Lock Venous Post Dialysis, Every Treatment 2000 units Venous Blue Port December 22, 2023 December 20, 2024 Active Heparin Sodium (Porcine) 1,000 Units/mL Systemic Bolus, 3X Week, Total treatment minutes 240 3000 units Intravenous - push December 22, 2023 December 20, 2024 Active Iron Sucrose (Venofer) During Dialysis, 3X Week 100 mg Intravenous - push December 29, 2023 January 19, 2024 Active Mircera During Dialysis, Every 2 weeks 60 mcg Intravenous - push December 29, 2023 December 27, 2024 Active Ondansetron HCl (Zofran) During Dialysis, PRN 4 mg Intravenous - push December 22, 2023 December 20, 2024 Active Tuberculin Purified Protein Derivative (Tubersol) During Dialysis, Once 0.1 mL Intradermal December 22, 2023 Discontinued Home Medications Medication Instructions Dosage Route Start Date End Date [facility] amiodarone 200 mg by mouth twice a day 1 tablet ORAL January 01, 2024 Active atorvastatin 40 mg by mouth once a day 1 tablet ORAL January 01, 2024 Active carvedilol 6.25 mg by mouth twice a day 1 tablet ORAL January 01, 2024 Active citalopram 10 mg by mouth every evening 1 tablet ORAL January 01, 2024 Active Cozaar 50 mg by mouth twice a day 1 tablet ORAL January 01, 2024 Active Eliquis 2.5 mg by mouth twice a day 1 tablet ORAL January 01, 2024 Active Farxiga 5 mg by mouth once a day 1 tablet ORAL January 01, 2024 Active ferrous sulfate 325 mg (65 mg iron) by mouth every other day 1 tablet ORAL January 01, 2024 Active gabapentin 300 mg by mouth every evening 2 capsule ORAL January 01, 2024 Active Humalog KwikPen Insulin 100 unit/mL subcutaneously three times a day 1 unit SUBCUTANEOUS January 01, 2024 Active Lantus Solostar U-100 Insulin 100 unit/mL (3 mL) subcutaneously every evening 1 unit SUBCUTANEOUS January 01, 2024 Active Levemir FlexPen 100 unit/mL (3 mL) subcutaneously every evening 30 unit SUBCUTANEOUS January 01, 2024 Active methocarbamol 750 mg by mouth three times a day 1 tablet ORAL January 01, 2024 Active pantoprazole 40 mg by mouth once a day 1 tablet ORAL January 01, 2024 Active Plavix 75 mg by mouth once a day 1 tablet ORAL January 01, 2024 Active sacubitril-valsar dang 24-26 mg by mouth twice a day 1 tablet ORAL January 01, 2024 Active sevelamer carbonate 800 mg by mouth three times a day 1 tablet ORAL January 01, 2024 Active temazepam 7.5 mg by mouth every night 1 capsule ORAL January 01, 2024 Active Vitamin D3 125 mcg (5,000 unit) by mouth once a day 1 tablet ORAL January 01, 2024 Active VITAL SIGNS Post-Treatment Vital Signs Vital Sign Value Date / Time Blood Pressure-sitting 154/80 mmHg January 03, 2024 12:15 PM Blood Pressure-standing 145/73 mmHg January 03, 2024 12:15 PM Heart Rate 80 beats per minute January 03, 2024 12:15 PM Respiratory Rate 18 breaths per minute January 03, 2024 12:15 PM Temperature 97.7 deg. F January 02 12:15 PM Weight Vital Sign Value Date / Time Estimated Dry Weight 119 kg December 11:59 PM Pre-Dialysis 119.50 kg January 02 12:15 PM Post-Dialysis 118.50 kg January 02 12:15 PM Other Other Value Date / Time Height 177.8 cm December 26 12:00 AM Body Mass Index 37.56 kg/m2 January 02 01:22 PM HEALTH CONCERNS Tuberculosis Testing TST Date Administered TST Date Read TST Result 12/22/2023 12/25/2023 Negative (<5) mm LAB RESULTS Hematology Result Type Result Value Relevant Referen ce Range Interpretation Date HCT 25.3 % 42.0 - 52.0 % Low December Neutrophils 78.3 % 40.0 - 75.0 % High December Lymphocytes 13.1 % 19.0 - 48.0 % Low December Monocytes 4.7 % 3.0 - 10.0 % - December 25, 2023 Eosinophil 2.1 % 0.0 - 7.0 % - December 25, 2023 Basophils 0.6 % 0.0 - 1.5 % - December 25, 2023 ELIJAH 1.2 % 0.0 - 4.0 % - December 25, 2023 WBC (No Diff) 9.51 1000/mcL 4.80 - 10.80 1000/mcL - December 25, 2023 RBC 3.56 mill/mcL 4.70 - 6.10 mill/mcL Low December 25, 2023 Iron 32 mcg/dL 45 - 160 mcg/dL Low December 25, 2023 MCH 21.7 pg 27.0 - 31.0 pg Low December MCHC 30.5 g/dL 30.0 - 36.0 g/dL - December 25, 2023 RDW 19.9 % 11.5 - 14.5 % High December HGB 7.7 g/dL 14.0 - 18.0 g/dL Low December 25, 2023 Hemoglobin x 3 23.1 % 42.0 - 54.0 % Low r 2023 Platelets 418 1000/mcL 130 - 400 1000/mcL High Nove mber 2023 Retic HGB (CHr) 24.9 pg 25.4 - 31.8 pg Low 2023 Transferrin Sat. (Calc) 11 % 20 - 55 % Low December 24 UIBC/TIBC 254 mcg/dL 155 - 355 mcg/dL - December 25, 2023 Ferritin 280 ng/mL 22 - 322 ng/mL - December TIBC (Calc) 286 mcg/dL 185 - 515 mcg/dL - 2023 HGB 8.4 g/dL 14.0 - 18.0 g/dL Low January 01, 2024 Hemoglobin x 3 25.2 % 42.0 - 54.0 % Low r 2023 Metabolic/Renal Result Type Result Value Relevant Referen ce Range Interpretation Date BUN, Post 20 mg/dL 6 - 19 mg/dL High December 25, 2023 URR, Calc 67 % 65 - 80 % - December 24, 024 Chloride 93 mEq/L 96 - 108 mEq/L Low December Bicarbonate 23 mEq/L 22 - 29 mEq/L - December Sodium 132 mEq/L 136 - 145 mEq/L Low December 25, 2023 Potassium 5.0 mEq/L 3.5 - 5.1 mEq/L - December 25, 2023 BUN 61 mg/dL 6 - 19 mg/dL High December 25, 2023 Hemoglobin A1c 8.1 % 4.8 - 5.9 % High December 25, 2023 BUN/Creat Ratio 14.4 10.0 - 20.0 - December 25, 2023 Creatinine, Serum 4.24 mg/dL 0.60 - 1.30 mg/dL High December 25, 2023 Sodium 138 mEq/L 136 - 145 mEq/L - January 01, 2024 HD Adequacy Result Type Result Value Relevant Referen ce Range Interpretation Date spKt/V (Daugirdas II) 1.28 No Reference Range Provided - December 25, 2023 wstdKt/V without residual 1.5 No Reference Range Provided - December 25, 2023 spKt/V Gotch 1.28 No Reference Ran ge Provided - December 25, 2023 wstdKt/V, residual 0.0 No Reference Range Provided - December 25, 2023 wstdKt/V 1.5 No Reference Ran ge Provided - December 25, 2023 Krt/V 0.00 No Reference Ran ge Provided - December 25, 2023 eKt/V ([place]) 1.12 No Reference Range Provided - December 25, 2023 Bone/Mineral Result Type Result Value Relevant Referen ce Range Interpretation Date PTH-Intact, Plasma 105 pg/mL 16 - 80 pg/mL High Dec Corrected Ca x P Product 45 0 - 54 - December 24 Alkaline Phosphatase 73 U/L 40 - 129 U/L - 2023 Phosphorus 4.9 mg/dL 2.6 - 4.5 mg/dL High December 25, 2023 Ca x P Product 42 0 - 54 - December Calcium, Total 8.5 mg/dL 8.4 - 10.2 mg/dL - 2023 Vitamin D 25 Hydroxy 30.6 ng/mL 30.0 - 100.0 ng/mL - December 25, 2023 Liver/Nutrition Result Type Result Value Relevant Reference Range Interpre tation eNPCR 0.78 No Reference Ran ge Provided - December 25, 2023 SGPT (ALT) 8 U/L 7 - 52 U/L - December 24 024 Albumin (BCG) 3.3 g/dL 3.5 - 5.2 g/dL Low 2023 SGOT (AST) 9 U/L 13 - 39 U/L Low December 25, 2023 Immunochemistry Result Type Result Value Relevant Reference Range Interpre tation Date HCV s/co ratio 0.07 0.00 - 0.79 - December 25, 2023 Trace Elements Result Type Result Value Relevant Reference Range Interpre tation Aluminum < 5 mcg/L 0 - 10 mcg/L - December 25, 2023 Infectious Diseases Result Type Result Value Relevant Referen ce Range Interpretation Date Hep B core IgM (IgM anti-HBc) Negative No Reference Range Provided - December 25, 2023 Hep B core Ab Total (anti-HBc) Negative No Reference Range Provided - December 25, 2023 HCV Ab (anti-HCV) Nonreactive No Reference R tom Provided - December 25, 2023 Hep B Surface Ag (HBsAg) Negative No Reference Range Provided - December 25, 2023 Hep B Surface Ab (anti-HBs) < 10 mIU/mL No Reference Range Provided - December 25, 2023 DIALYSIS PRESCRIPTION Conventional Hemodialysis Data Element Value Order Date/Time December 25, 2023 Frequency 3X Week Treatment Days MonWedFri Dialyzer 180NRe Optiflux Treatment Time (Total Minutes) 240 min Blood Flow Rate (mL/min) 450 mL/min Dialysate Flow Rate Manual 800 Estimated Dry Weight 119 kg Dialysate Concentrate 2.0 K, 2.5 Ca, 1.0 Mg, 100 Dextrose (G2251) Sodium (mEq/L) 140 mEq/L Bicarb Machine Setting (mEq/L) 35 mEq/L Dialysis Access Hemodialysis-CV Cath eter-Tunneled, Neck, Right Jugular Access Placed on December 12, 2023 TRANSPLANT WAITLIST STATUS No Information on Transplant Waitlist Status ADVANCE DIRECTIVES Directive Description Ordered By Effective Date Resuscitation status Full Code Alice Stewart Dec 22, 2023 DIALYSIS TREATMENTS Conventional Hemodialysis Date Pre-Treatment Vitals Post-Treatment Annita ls Duration (hr) BFR (mL/min) Dialysate Dialyzer Dialysis Access Meds Admin Novem 2023 Weight 121.80 kg Weight 119.30 kg 04:03:00 450 2.0 K, 2.5 Ca, 1.0 Mg, 100 Dextrose (G2251) 180nre Optifl ux Blood Pressure-sitting 100/54 mmHg Blood Pressure-sit ting 117/61 mmHg Heart Rate 73 beats per minute Heart Rate 70 beats per minute Respiratory Rate 18 breaths per minute Respiratory Rate 17 breaths per minute Temperature 96.4 deg. F Temperature 97.0 deg. F January 01, 2024 Weight 119.70 kg Weight 118.50 kg 03:58:00 450 2.0 K, 2.5 Ca, 1.0 Mg, 100 Dextrose (G2251) 180nre Optiflux Hemodialysis-CV Catheter-Tunneled, Neck, Right Jugular Access Placed on December 12, 2023 Heparin Sodium (Porcine) 1,000 Units/mL Catheter Lock Arterial; 2000units,Arterial Red Port Heparin Sodium (Porcine) 1,000 Units/mL Catheter Lock Venous; 2000units,Venous Blue Port Heparin Sodium (Porcine) 1,000 Units/mL Systemic; 3000units,Intravenous - push Iron Sucrose (Venofer); 100mg,Intravenous - push Blood Pressure-sitting 118/69 mmHg Blood Pressure-sit ting 147/77 mmHg Blood Pressure-standing 104/52 mmHg Blood Pressure-st anding 116/64 mmHg Heart Rate 79 beats per minute Heart Rate 81 beats per minute Respiratory Rate 18 breaths per minute Respiratory Rate 16 breaths per minute Temperature 96.8 deg. F Temperature 97.1 deg. F January 03, 2024 Weight 119.50 kg Weight 118.50 kg 04:04:00 450 2.0 K, 2.5 Ca, 1.0 Mg, 100 Dextrose (G2251) 180nre Optiflux Hemodialysis-CV Catheter-Tunneled, Neck, Right Jugular Access Placed on December 12, 2023 Heparin Sodium (Porcine) 1,000 Units/mL Catheter Lock Arterial; 2000units,Arterial Red Port Heparin Sodium (Porcine) 1,000 Units/mL Catheter Lock Venous; 2000units,Venous Blue Port Heparin Sodium (Porcine) 1,000 Units/mL Systemic; 3000units,Intravenous - push Iron Sucrose (Venofer); 100mg,Intravenous - push Blood Pressure-sitting 109/61 mmHg Blood Pressure-sit ting 154/80 mmHg Blood Pressure-standing 109/55 mmHg Blood Pressure-st anding 145/73 mmHg Heart Rate 75 beats per minute Heart Rate 80 beats per minute Respiratory Rate 16 breaths per minute Respiratory Rate 18 breaths per minute Temperature 96.8 deg. F Temperature 97.7 deg. F
--- OUTSIDE RECORDS SUMMARY | 2024-01-04 13:06 | XMS_ITS | Encounter Summary ---
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 Captain Name Role Phone Unavailable Primary Care Provider Unavailabl e Encounter Details Date Type Department Care Team (Late st Contact Info) Description 11/16/2021 Lab Requisition [facility] Pathology & Laboratory Medicine - [facility] [address] [place] [address] Outr Resulting Lab, Provider Social History Tobacco Use Types Packs/Day Years Used Date Smoking Tobacco: Never Assessed Sex and Gender Information Value Date Recorded Sex Assigned at Not on file Legal Sex Male 18:12 EST Gender Identity Not on file Sexual Orientation Not on file documented as of this encounter Plan of Treatment Not on file documented as of this encounter Procedures Procedure Name Priority Date/Time Associated Diagnosis Comments HOLD SST Today 11/15/2021 16:38 EDT HOLD SST Today 11/15/2021 16:38 EDT HOLD SST Today 11/15/2021 16:38 EDT HOLD SST Today 11/15/2021 16:38 EDT MEASLES IGG AB Today 11/15/2021 16:38 EDT RUBELLA IGG ANTIBODY Today 11/15/2021 16:38 EDT HEPATITIS B SURFACE ANTIBODY Today 11/15/2021 16:38 EDT VARICELLA IGG ANTIBODY Today 11/15/2021 16:38 EDT MUMPS ANTIBODY IGG Today 11/15/2021 16 :38 EDT documented in this encounter Results * HOLD SST (11/15/2021 16:38 EDT) Hold Hold 11/16/2021 18:31 EDT [facility] Blood VENOUS BLOOD / Unknown 11/15/2021 16:38 EDT 11/16/2021 17:21 EDT us Provider Outr Resulting Lab LAB INFO SERVICE AND SUPPORT & PHONE RESULT Final Result [facility] [address] [place] [address] * HOLD SST (11/15/2021 16:38 EDT) Hold Hold 11/16/2021 18:31 EDT [facility] Blood VENOUS BLOOD / Unknown 11/15/2021 16:38 EDT 11/16/2021 17:21 EDT us Provider Outr Resulting Lab LAB INFO SERVICE AND SUPPORT & PHONE RESULT Final Result [facility] [address] [place] [address] * HOLD SST (11/15/2021 16:38 EDT) Hold Hold 11/16/2021 18:31 EDT [facility] Blood VENOUS BLOOD / Unknown 11/15/2021 16:38 EDT 11/16/2021 17:21 EDT us Provider Outr Resulting Lab LAB INFO SERVICE AND SUPPORT & PHONE RESULT Final Result [facility] [address] [place] [address] * HOLD SST (11/15/2021 16:38 EDT) Hold Hold 11/16/2021 18:31 EDT [facility] Blood VENOUS BLOOD / Unknown 11/15/2021 16:38 EDT 11/16/2021 17:21 EDT us Provider Outr Resulting Lab LAB INFO SERVICE AND SUPPORT & PHONE RESULT Final Result Performing Organization Address City/[facility]/ZIP Co de Phone Number [facility] [address] [place] [address] * HEPATITIS B SURFACE ANTIBODY (11/15/2021 16:38 EDT) Hep B Surface Ab, Quantitative 3.3 See Note mIU/mL 11/17/2021 9:08 EDT [facility] Comment: Reference Range for Hep B Surface Ab, Quant: Positive: >= 10.0 mIU/mL Negative: ??< 10.0 mIU/mL Patient is presumed to not be immune to infection with Hepatitis B Virus. Hep B Surface Ab, Qualitative Negative See Note 11/17/2021 9:08 EDT [facility] Comment: Reference Range for Hep B Surface Ab, Qual: Unvaccinated: ??Negative Vaccinated: ??Positive Blood VENOUS BLOOD / Unknown 11/15/2021 16:38 EDT 11/16/2021 17:17 EDT us Provider Outr Resulting Lab CHEMISTRY & BLOOD GA S ORDERABLES Final Result Performing Organization Address [facility] Co de Phone Number [facility] [address] [place] [address] * MEASLES IGG AB (11/15/2021 16:38 EDT) Measles IgG Ab Positive See Note 11/17/2021 10:19 EDT [facility] Comment:Presence of detectab le measles virus IgG antibodies. Blood VENOUS BLOOD / Unknown 11/15/2021 16:38 EDT 11/16/2021 17:17 EDT us Provider Outr Resulting Lab IMMUNOLOGY AND SEROL OGY ORDERABLES Final Result Performing Organization Address City/[facility]/ZIP Co de Phone Number [facility] [address] [place] [address] * VARICELLA IGG ANTIBODY (11/15/2021 16:38 EDT) Varicella IgG Ab Positive See Note 11/17/2021 10:18 EDT [facility] Comment:Presence of detectab le Varicella Zoster virus IgG antibodies. Blood VENOUS BLOOD / Unknown 11/15/2021 16:38 EDT 11/16/2021 17:17 EDT us Provider Outr Resulting Lab IMMUNOLOGY AND SEROL OGY ORDERABLES Final Result [facility] [address] [place] [address] * MUMPS ANTIBODY IGG (11/15/2021 16:38 EDT) Mumps Antibody IgG Positive See Note 11/17/2021 10:19 EDT [facility] Comment:Presence of detectab le mumps virus IgG antibodies. Blood VENOUS BLOOD / Unknown 11/15/2021 16:38 EDT 11/16/2021 17:17 EDT us Provider Outr Resulting Lab IMMUNOLOGY AND SEROL OGY ORDERABLES Final Result Performing Organization Address [facility]/ZIP Co de Phone Number [facility] [address] [place] [address] * RUBELLA IGG ANTIBODY (11/15/2021 16:38 EDT) Rubella IgG Ab Positive See Note 11/17/2021 10:20 EDT [facility] Comment:Positive for IgG ant ibodies to Rubella virus. Blood VENOUS BLOOD / Unknown 11/15/2021 16:38 EDT 11/16/2021 17:17 EDT us Provider Outr Resulting Lab CHEMISTRY & BLOOD GA S ORDERABLES Final Result Performing Organization Address City/[facility]/ZIP Co de Phone Number [facility] [address] [place] [address] documented in this encounter Visit Diagnoses Not on filedocumented in this encounter
--- OUTSIDE RECORDS SUMMARY | 2024-01-04 13:06 | XMS_ITS | Continuity of Care Document ---
Author Organization [facility] Address [address] [place] [id number] Care Team Providers Care Make Ready Worker Name Role Phone MJ WILLS, MARIBETH Constantino Primary Care Physician Encounter [facility] NBR [id number] Date(s): 12/10/23 - 12/10/[address] [phone] [phone] Encounter Diagnosis Hyperkalemia(Discharge Diagnosis) - 12/10/23 Anemia(Discharge Diagnosis) - 12/10/23 Acute kidney injury(Discharge Diagnosis) - 12/10/23 Congestive heart failure(Discharge Diagnosis) - 12/10/23 Hyperkalemia(Final) - Anemia, unspecified(Final) - Acute kidney failure, unspecified(Final) - Heart failure, unspecified(Final) - Discharge Disposition: Transfer to Higher Level of Care Attending Physician: Carlos Freeman MD Admitting Physician: Carlos Freeman MD Allergies, Adverse Reactions, Alerts Substance Criticality Severity Reaction Reaction Severity Status melatonin Unable to assess criticality Unknown Restless legs syndrome Active Diphendramine HCL Unable to assess criticality Unknown Hyperactivity level Active Assessment and Plan Extracted from: Title:ED Provider Note Author:Carlos Freeman MD Bertram e:12/10/23 1.??Hyperkalemia??E87.5 Ordered: calcium gluconate, 1,000 mg = 50 mL, IV Piggyback, Injection, Once, Administer over: 30 minutes, First Dose: 12/10/23 6:00:00 EDT, Stop Date: 12/10/23 6:00:00 EDT, Physician Stop, Routine, 100 mL/hr Dextrose 50% injection, 25 g = 50 mL, IV, Injection, Once, First Dose: 12/10/23 6:00:00 EDT, Stop Date: 12/10/23 6:00:00 EDT, Physician Stop, Routine insulin regular 100 units/mL human recombinant injectable solution, 10 units = 0.1 mL, IV Push, Soln, Once, First Dose: 12/10/23 6:00:00 EDT, Stop Date: 12/10/23 6:00:00 EDT, Physician Stop, Routine Blood Glucose POC - Interfaced, 12/10/23 5:23:00 EDT, every 30 min, 3 hr, Stop date 12/10/23 8:29:00 EDT, Hyperkalemia Anemia Acute kidney injury ?? 2.??Anemia??D64.9 Ordered: calcium gluconate, 1,000 mg = 50 mL, IV Piggyback, Injection, Once, Administer over: 30 minutes, First Dose: 12/10/23 6:00:00 EDT, Stop Date: 12/10/23 6:00:00 EDT, Physician Stop, Routine, 100 mL/hr Dextrose 50% injection, 25 g = 50 mL, IV, Injection, Once, First Dose: 12/10/23 6:00:00 EDT, Stop Date: 12/10/23 6:00:00 EDT, Physician Stop, Routine insulin regular 100 units/mL human recombinant injectable solution, 10 units = 0.1 mL, IV Push, Soln, Once, First Dose: 12/10/23 6:00:00 EDT, Stop Date: 12/10/23 6:00:00 EDT, Physician Stop, Routine Blood Glucose POC - Interfaced, 12/10/23 5:23:00 EDT, every 30 min, 3 hr, Stop date 12/10/23 8:29:00 EDT, Hyperkalemia Anemia Acute kidney injury ?? 3.??Acute kidney injury??N17.9 Ordered: calcium gluconate, 1,000 mg = 50 mL, IV Piggyback, Injection, Once, Administer over: 30 minutes, First Dose: 12/10/23 6:00:00 EDT, Stop Date: 12/10/23 6:00:00 EDT, Physician Stop, Routine, 100 mL/hr Dextrose 50% injection, 25 g = 50 mL, IV, Injection, Once, First Dose: 12/10/23 6:00:00 EDT, Stop Date: 12/10/23 6:00:00 EDT, Physician Stop, Routine insulin regular 100 units/mL human recombinant injectable solution, 10 units = 0.1 mL, IV Push, Soln, Once, First Dose: 12/10/23 6:00:00 EDT, Stop Date: 12/10/23 6:00:00 EDT, Physician Stop, Routine Blood Glucose POC - Interfaced, 12/10/23 5:23:00 EDT, every 30 min, 3 hr, Stop date 12/10/23 8:29:00 EDT, Hyperkalemia Anemia Acute kidney injury ?? 4.??Congestive heart failure??I50.9 ?? 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, Pharmacy: [id number], 177.8, cm, 12/01/23 21:30:00 [...] Results Laboratory List Name Date Glucose POCT 12/10/23 Glucose POCT 12/10/23 Glucose POCT 12/10/23 Basic Metabolic Panel (BMP) 12/10/23 Troponin-I High Sensitivity 12/10/23 .Morphology (LTTL) 12/10/23 CBC w/ Diff 12/10/23 Comprehensive Metabolic Panel (CMP) 11/21 Magnesium Level 12/10/23 Troponin-I High Sensitivity 12/10/23 BNP 12/10/23 Automated Diff 12/10/23 Most recent to oldest [Reference Range]: 1 2 3 WBC [4.8-10.8 K/mcL] 6.6 K/mcL (12/10/23 2:00 AM) RBC [4.70-6.10 Million/mcL] 3.77 Million /mcL *LOW* (12/10/23 2:00 AM) Neutro Auto [42.2-75.2 %] 67.6 % (12/10/23 2:00 AM) Lymph Auto [20.5-51.1 %] 19.6 % *LOW* (12/10/23 2:00 AM) Pender Auto [1.7-9.3 %] 9.3 % (12/10/23 2:00 AM) Basophil Auto [0.0-0.8 %] 1.5 % *HI* (12/10/23 2:00 AM) BUN [7-25 mg/dL] 82 mg/dL *HI* (12/10/23 5:06 AM) 80 mg/dL *HI* (12/10/23 2:00 AM) Glucose POC 119 *NA* (12/10/23 8:14 AM) 116 *NA* (12/10/23 7:31 AM) 150 *NA* (12/10/23 7:05 AM) Glucose Level [70-109 mg/dL] 102 mg/dL (12/10/23 5:06 AM) 134 mg/dL *HI* (12/10/23 2:00 AM) Potassium Level [3.5-5.1 mmol/L] 7.3 mmol/L 1 *CRIT* (12/10/23 5:06 AM) 6.7 mmol/L 2 *CRIT* (12/10/23 2:00 AM) Baso Absolute [0.0-0.2 K/mcL] 0.1 K/mcL (12/10/23 2:00 AM) MCV [80.0-94.0 fL] 72.0 fL *LOW* (12/10/23 2:00 AM) RBC Morph [Normal] Abnormal *ABN* (12/10/23 2:00 AM) AST [13-39 IntlUnit/L] 46 IntlUnit/L *HI* (12/10/23 2:00 AM) ALT [7-52 IntlUnit/L] 66 IntlUnit/L *HI* (12/10/23 2:00 AM) MCHC [32.0-37.0 g/dL] 30.2 g/dL *LOW* (12/10/23 2:00 AM) Osmolality [275-295 mOsm/kg] 299 mOsm/kg *HI* (12/10/23 5:06 AM) 300 mOsm/kg *HI* (12/10/23 2:00 AM) Sodium Level [136-145 mmol/L] 137 mmol/L (12/10/23 5:06 AM) 137 mmol/L (12/10/23 2:00 AM) Lymph Absolute [1.2-3.4 K/mcL] 1.3 K/mcL (12/10/23 2:00 AM) Hct [42.0-52.0 %] 27.1 % *LOW* (12/10/23 2:00 AM) Microcyte 3+ *ABN* (12/10/23 2:00 AM) Elliptocyte 1+ *ABN* (12/10/23 2:00 AM) Hypochromia 3+ *ABN* (12/10/23 2:00 AM) Calcium Level [8.6-10.3 mg/dL] 8.8 mg/dL (12/10/23 5:06 AM) 8.6 mg/dL (12/10/23 2:00 AM) Pender Absolute [0.1-0.6 K/mcL] 0.6 K/mcL (12/10/23 2:00 AM) Albumin Level [3.5-5.7 g/dL] 3.5 g/dL (12/10/23 2:00 AM) Protein Total [6.4-8.9 g/dL] 6.7 g/dL (12/10/23 2:00 AM) Poik 2+ *ABN* (12/10/23 2:00 AM) MCH [27.0-31.0 pg] 21.7 pg *LOW* (12/10/23 2:00 AM) Magnesium Level [1.9-2.7 mg/dL] 2.3 mg/dL (12/10/23 2:00 AM) Neutro Absolute [1.4-6.5 K/mcL] 4.5 K/mcL (12/10/23 2:00 AM) Bilirubin Total [0.3-1.0 mg/dL] 0.3 mg/dL (12/10/23 2:00 AM) Hgb [14.0-18.0 g/dL] 8.2 g/dL *LOW* (12/10/23 2:00 AM) Alk Phos [34-104 IntlUnit/L] 89 IntlUnit/L (12/10/23 2:00 AM) MPV [7.4-10.4 fL] 8.7 fL (12/10/23 2:00 AM) Teardrop Cells 1+ *ABN* (12/10/23 2:00 AM) Platelets [130-400 K/mcL] 223 K/mcL (12/10/23 2:00 AM) CO2 [21-31 mmol/L] 20 mmol/L *LOW* (12/10/23 5:06 AM) 20 mmol/L *LOW* (12/10/23 2:00 AM) Eos Absolute [0.0-0.2 K/mcL] 0.1 K/mcL (12/10/23 2:00 AM) Target Cells 1+ *ABN* (12/10/23 2:00 AM) BNP [<=100 pg/mL] 572 pg/mL *HI* (12/10/23 1:56 AM) Chloride Level [98-107 mmol/L] 112 mmol/L *HI* (12/10/23 5:06 AM) 111 mmol/L *HI* (12/10/23 2:00 AM) RDW-CV [11.5-14.5 %] 24.0 % *HI* (12/10/23 2:00 AM) A/G Ratio [1.0-2.5 g/dL] 1.1 g/dL (12/10/23 2:00 AM) BUN/Creat Ratio [8.0-20.0] 19.5 (12/10/23 5:06 AM) 19.0 (12/10/23 2:00 AM) Deland Cells 1+ *ABN* (12/10/23 2:00 AM) Globulin [2.3-3.5 g/dL] 3.2 g/dL (12/10/23 2:00 AM) Ovalocytes 1+ *ABN* (12/10/23 2:00 AM) Slide Review Morph Only (12/10/23 2:00 AM) Plt Large Few *ABN* (12/10/23 2:00 AM) Anisocyte 4+ (12/10/23 2:00 AM) Creatinine Level [0.70-1.30 mg/dL] 4.20 mg/dL *HI* (12/10/23 5:06 AM) 4.20 mg/dL *HI* (12/10/23 2:00 AM) Plt Estimation Normal (12/10/23 2:00 AM) Troponin-I HS [<=20 ng/L] 36 ng/L 3 *HI* (12/10/23 4:00 AM) 35 ng/L 4 *HI* (12/10/23 2:00 AM) Anion Gap [3.0-12.0] 5.0 (12/10/23 5:06 AM) 6.0 (12/10/23 2:00 AM) Eos, Auto [0.00-3.00 %] 2.00 % (12/10/23 2:00 AM) eGFR CKD-EPI [>=60 mL/min/1.73 m2] 17 mL/min/1.73 m2 *LOW* (12/10/23 5:06 AM) 17 mL/min/1.73 m2 *LOW* (12/10/23 2:00 AM) 1Result Comment: Critical Result S_K:7.3 Called to and read back by: DESIREE Peterson at: 2023 05:21:18 by:BETITO 2Result Comment: Critical Result S_K:6.7 Called to and read back by: DESIREE Peterson at: 2023 02:30:10 by:BETITO 3Interpretive Data: The [facility] ACCESS high-sensitivity Troponin I (hsTNI) 99 percentile cutoffs forhealthy adults are 12 ng/L or less for females and 20 ng/L or less for males. SERIAL MEASUREMENT IS HIGHLY RECOMMENDED for the diagnosis or exclusion of Acute Coronary Syndromes(ACS). Please refer to the High-Sensitivity Troponin Algorithm 2023 for guidance. As with all markers of [...] Please refer to the High-Sensitivity Troponin Algorithm 2023 for guidance. As with all markers of [...] Exam Date Time Procedure Performing Provider Status 12/10/23 2:[address] Chest w/o Contrast Ismael Lopez; Auth (Verified) Notes: (CT Chest w/o Contrast) Reason For Exam: R chest pain CT Chest w/o Contrast PROCEDURE INFORMATION: Exam: CT Chest Without Contrast; Diagnostic Exam date and time: 2023 2:46 AM Age: 47 years old Clinical indication: Anemia, unspecified; Anemia, unspecified; Hyperkalemia; Hyperkalemia; Acute kidney failure, unspecified; Acute kidney failure, unspecified; Additional info: R chest pain TECHNIQUE: Imaging protocol: Diagnostic computed tomography of the chest without contrast. Radiation optimization: All CT scans at this facility use at least one of these dose optimization techniques: automated exposure control; mA and/or kV adjustment per patient size (includes targeted exams where dose is matched to clinical indication); or iterative reconstruction. COMPARISON: CT ANGIO CHEST 03/08/2023 10:09 AM FINDINGS: Lungs: No evidence endobronchial lesion. Decreased lung volumes. Mild left lower lobe atelectasis and/or consolidation. Mild lingular, right middle and bilateral lower lobe air space opacity. Pleural spaces: No pneumothorax. Mild bilateral pleural effusions. Heart: Heart appears within normal limits. No significant pericardial effusion. Coronary arteries: Bilateral coronary artery calcification and/or stents. Lymph nodes: Few subcentimeter mediastinal lymph nodes. Vasculature: Mild atherosclerotic calcification of the thoracic aorta. Bones/joints: Healed/healing sternal incision with mediastinal clips and sternal sutures; mild anterior thoracic wall soft tissue swelling/edema. Multi-level degenerative changes involve the thoracic spine. Soft tissues: See Bones/joints finding. IMPRESSION: 1. Healed/healing sternal incision; mild anterior thoracic wall soft tissue swelling/edema. 2. Decreased lung volumes. 3. Mild left lower lobe atelectasis and/or consolidation. 4. Mild bilateral pleural effusions. 5. Mild lingular, right middle and bilateral lower lobe atelectasis. THIS DOCUMENT HAS BEEN ELECTRONICALLY SIGNED BY QUIRINO ARGUETA MD on 2023 03:24 AM Final Signed by: Quirino Argueta MD Signed (Electronic Signature): 2023 3:24 am * Exam Date Time Procedure Performing Provider Status 12/10/23 2:[address] Abdomen and Pelvi s w/o Contrast Belkys Lopez; Auth (Verified) Notes: (CT Abdomen and Pelvis w/o Contrast) Reason For Exam: RUQ pain, anticoagulated, renal failure CT Abdomen and Pelvis w/o Contrast PROCEDURE INFORMATION: Exam: CT Abdomen And Pelvis Without Contrast Exam date and time: 2023 2:46 AM Age: 47 years old Clinical indication: Abdominal tenderness; Additional info: Ruq pain, anticoagulated, renal failure TECHNIQUE: Imaging protocol: Computed tomography of the abdomen and pelvis without contrast. Radiation optimization: All CT scans at this facility use at least one of these dose optimization techniques: automated exposure control; mA and/or kV adjustment per patient size (includes targeted exams where dose is matched to clinical indication); or iterative reconstruction. COMPARISON: CT ABD/PELVIS W CONTRAST 03/11/2022 2:46 AM FINDINGS: Liver: Normal. No mass. Gallbladder and biliary ducts: Mild hyperdensity and calcification within gallbladder lumen. Pancreas: Normal. No ductal dilation. Spleen: Normal. No splenomegaly. Adrenal glands: Normal. No mass. Kidneys and ureters: Mild bilateral perinephric fat stranding. Mild bilateral perinephric fat stranding. No calcified stones within kidneys, ureters or bladder. No hydronephrosis or hydroureter. Stomach and bowel: Unremarkable. No obstruction. No mucosal thickening. Appendix: Visualized portion appendix normal. Intraperitoneal space: Unremarkable. No free air. No significant fluid collection. Vasculature: Mild atherosclerotic calcification of the aortoiliac vasculature. Lymph nodes: Unremarkable. No enlarged lymph nodes. Urinary bladder: See Kidneys and ureters finding. Reproductive: Prostate within normal limits size. Bones/joints: Chronic degenerative changes of the lumbar spine. Soft tissues: Moderate pelvic wall soft tissue swelling/edema. Rounded 2 cm fat containing umbilical hernia. IMPRESSION: 1. Mild stones and/or sludge within gallbladder. No evidence of intrahepatic or extrahepatic biliary ductal dilatation. 2. Moderate pelvic wall soft tissue swelling/edema. 3. No evidence of small bowel obstruction. THIS DOCUMENT HAS BEEN ELECTRONICALLY SIGNED BY QUIRINO ARGUETA MD on 2023 03:25 AM Final Signed by: Quirino Argueta MD Signed (Electronic Signature): 2023 3:25 am * Exam Date Time Procedure Performing Provider Status 12/10/23 2:03 AM XR Chest 1 View Adalberto Lopez Aut h (Verified) Notes: (XR Chest 1 View) Reason For Exam: Chest Pain XR Chest 1 View PROCEDURE INFORMATION: Exam: XR Chest Exam date and time: 2023 2:02 AM Age: 47 years old Clinical indication: Shortness of breath; Additional info: Chest pain TECHNIQUE: Imaging protocol: Radiologic exam of the chest. Views: 1 view. COMPARISON: CR XR CHEST SINGLE VIEW 09/11/2023 12:02 PM FINDINGS: Tubes, catheters and devices: Few overlying wires. Lungs: Decreased lung volumes. Mild left basilar atelectasis and/or consolidation. Pleural spaces: Mild -moderate left pleural effusion. Heart/Mediastinum: Upper normal size of the cardiomediastinal silhouette. Bones/joints: Sternal sutures. IMPRESSION: 1. Decreased lung volumes. 2. Mild left basilar atelectasis and/or consolidation. 3. Mild -moderate left pleural effusion. THIS DOCUMENT HAS BEEN ELECTRONICALLY SIGNED BY QUIRINO ARGUETA MD on 2023 02:23 AM Final Signed by: Quirino Argueta MD Signed (Electronic Signature): 2023 2:23 am Vital Signs Most recent to oldest [Reference Range]: 1 2 3 Temperature Temporal Artery [36-38 Deg C] 36 Deg C (12/10/23 1:54 AM) Peripheral Pulse Rate [60-100 bpm] 56 bpm *LOW* (12/10/23 8:14 AM) 56 bpm *LOW* (12/10/23 7:59 AM) 55 bpm *LOW* (12/10/23 7:43 AM) Heart Rate Monitored [60-100 bpm] 56 bpm *LOW* (12/10/23 8:14 AM) 56 bpm *LOW* (12/10/23 7:59 AM) 57 bpm *LOW* (12/10/23 7:44 AM) Respiratory Rate [12-24 br/min] 23 br/min (12/10/23 8:14 AM) 17 br/min (12/10/23 7:59 AM) 19 br/min (12/10/23 7:44 AM) Blood Pressure [90-120/60-80 mmHg] 185/74mmHg *>HHI* (12/10/23 8:00 AM) 143/72mmHg *HI* (12/10/23 7:31 AM) 141/73mmHg *HI* (12/10/23 7:00 AM) Mean Arterial Pressure, Cuff [65-140 mmHg] 111 mmHg (12/10/23 8:00 AM) 77 mmHg (12/10/23 4:00 AM) 74 mmHg (12/10/23 3:30 AM) Mean Arterial Pressure Cuff 104 mmHg (12/10/23 8:00 AM) 94 mmHg (12/10/23 7:31 AM) 91 mmHg (12/10/23 7:00 AM) Weight 122.47 kg (12/10/23 1:54 AM) Weight Dosing 122.470 kg (12/10/23 1:54 AM) Height 177.8 cm (12/10/23 1:54 AM) Body Mass Index 38.74 kg/m2 (12/10/23 1:54 AM) Social History Social History Type Response Tobacco Never tobacco user T obacco Use:. Sex Sex Representation Male (finding) Physician Emergency department Note * Carlos Freeman MD: MODIFY, MODIFY, MODIFY, MODIFY, PERFORM, MODIFY, MODIFY Event Display: ED Note Physician Authored Date: [id number] SHOSHANA SALGADO :1975 Age:47 years Sex:Male Visit Date:2023 Primary Care Physician: MARIBETH BARKER MD Basic Information Time Seen: Carlos Freeman MD / 2023 01:56 Chief Complaint Right sided chest pain 7/10 worse with deep breaths, SOB with minimal effort. Hx of recent ??CABG History Of Present Illness: 47-year-old gentleman??with??complex??medical history including??chronic renal insufficiency, chronic cholecystitis, type 2 diabetes,??2 MIs??most recently in May, and??complex??coronary artery bypass graft surgery??with??respiratory failure and 2-week ICU stay??approximately 6 weeks ago??presents with 2 to 3 days of increasing right sided??lower chest upper abdominal pain, pain is pleuritic,??shortness of breath is at baseline, no new cough,??ongoing orthopnea,??peripheral edema??which has not improved since his surgery, and sleeplessness.?? He says it was really changed as he has ongoing??total body edema, sleeplessness, anxiety, PTSD, and shortness of breath is that now it hurts when he breathes, it hurts in his right upper quadrant and??right lower chest area, more towards the anterior side.?? He is not really able to find a comfortable position.?? Pain is 7 out of 10.?? He has had a light cough??and is not producing any blood. ??He is not bleeding anywhere else.?? He has??continued on apixaban. ??No fevers or chills, no injuries,??no new leg pain or swelling, no change in urine or bowels. Review of Systems: Constitutional:??No fevers or chills HEENT: No headache Respiratory: Per HPI Cardiovascular: Per HPI GI:??No nausea, vomiting :??No dysuria urgency or frequency Musculoskeletal:??No new pain or swelling Skin:??No new rash Neurologic:??No focal numbness or weakness Psychiatric:??No acute behavioral health concerns Physical Exam Vitals & Measurements T:??36?C ??(Temporal Artery)?? HR:??54??(Monitored)?? RR:??14?? BP:??125/55?? SpO2:??98%?? HT:??177.8??cm?? WT:??122.47??kg?? BMI:??38.74?? Pain Score:??7?? O2 Therapy:??Room air?? GEN: Very pale, no distress, sitting up in bed HEENT:??No sign of head trauma, neck full range of motion. ??Eyes: Sclera pale, pupils round and reactive LUNGS: Diminished at??the bases, pleurisy, mild increased work of breathing CARDIOVASCULAR: Distant heart sounds, no murmurs??pulse 2+ radial, cap refill < 2 seconds ABDOMEN:??Soft and flat, right upper quadrant tenderness to palpation, no Dickinson sign, no CVA tenderness, abdomen is distended :??Deferred EXTREMITIES:??Full range of motion without signs of trauma NEURO:??Awake, speech clear, cogent, sober, face symmetric, moves arms and legs with normal coordination SKIN:??No rash on exposed surface PSYCHIATRIC:??No internal stimuli, goal directed speech Medical Decision Makin-year-old gentleman recent CABG known renal insufficiency presents with worsening anasarca, rightupper quadrant pain, pale,??chronic??cholecystitis history but no evidence of acute infection, type2 diabetes, anticoagulated and pleuritic chest discomfort.?? Given his overall clinical picture there is a broad differential diagnosis including??pneumonia, bleeding to his abdominal wall or abdominal compartment,??venous congestion of the liver, cholecystitis,??pulmonary embolism.?? Labs were obtained EKG??was obtained EKG shows sinus rhythm at 54 without any acute changes. ??Labs show acute renal failure??and hyperkalemia with potassium of 6.7, chest x-ray shows cardiomegaly??left pleural effusion.?? He is not really acting infected. ??His liver enzymes??are??slightly above baseline??but he does not have an obstructive process??on them.?? His??hemoglobin is down another point. ??At this point he does not need a blood transfusion. ??I do not see any infection that requires antibiotics.?? I am giving him 80 mg of Lasix??for the hyperkalemia??as he has no EKG changes and his baseline potassium is around 5??so at this point it does not appear that he needs??calcium glucose insulin??or??binding resins.?? A noncontrast CT chest abdomen pelvis was obtained to see if there is any other ca use found.?? His??images on my review do not show any specific cause, there are gallstones without any obvious inflammation,??no obvious infiltrate, no free fluid in the abdomen, and abdominal wall does not show any??obvious asymmetry or hematoma.?? [facility] has been contacted at 3 AM with a request for transfer.?? Await CT reads, and callback from [facility].?? Initial clinical diagnosis is likely??hepatic congestion??as far as the right upper quadrant pain. ?? CT shows atelectasis vs infiltrate, I do not clinically suspect bacterial pneumonia. ?? Attempted bedside emergency echo performed??which demonstrates??massive cardiomegaly with poor ejection fraction, no obvious pericardial effusion, very limited study.?? I do not get any real good windows in the right upper quadrant but I do not see any free fluid.?? There does not appear to be a sonographic Dickinson sign or pericholecystic edema. ?? [facility] was contacted at 3 AM,??they excepted the patient at 5 AM??to Dr. Rdz,??stepdown, but has not been assigned.?? Patient's??hyperkalemia was rechecked??and??was worse at 7.3. ??He remained??asymptomatic from a hyperkalemia standpoint without any??changes on his??telemetry.?? He had been given 80 mg of IV Lasix and has diuresed over 500 mL, he actually feels quite a bit better,his right upper quadrant pain is gone??and he is breathing easier.?? We are going to start calcium,insulin, and glucose??and frequent blood sugar monitoring.?? Transportation has been arranged, nextavailable after 7 AM.?? 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 ?? 7 am: Blood sugars stable. Await transport. Still feeling well 8:15 AM EMS here receiving handoff Critical Care Time Spent Critical care of 75 minutes for chart creation, patient conversation, chart review, conversation with??[facility]??hospitalist??and transfer center, repeat exams. Procedure No Qualifying Data Assessment/Plan 1.??Hyperkalemia??E87.5 Ordered: calcium gluconate, 1,000 mg = 50 mL, IV Piggyback, Injection, Once, Administer over: 30 minutes, First Dose: 12/10/23 6:00:00 EDT, Stop Date: 12/10/23 6:00:00 EDT, Physician Stop, Routine, 100 mL/hr Dextrose 50% injection, 25 g = 50 mL, IV, Injection, Once, First Dose: 12/10/23 6:00:00 EDT, Stop Date: 12/10/23 6:00:00 EDT, Physician Stop, Routine insulin regular 100 units/mL human recombinant injectable solution, 10 units = 0.1 mL, IV Push, Soln, Once, First Dose: 12/10/23 6:00:00 EDT, Stop Date: 12/10/23 6:00:00 EDT, Physician Stop, Routine Blood Glucose POC - Interfaced, 12/10/23 5:23:00 EDT, every 30 min, 3 hr, Stop date 12/10/23 8:29:00 EDT, Hyperkalemia Anemia Acute kidney injury ?? 2.??Anemia??D64.9 Ordered: calcium gluconate, 1,000 mg = 50 mL, IV Piggyback, Injection, Once, Administer over: 30 minutes, First Dose: 12/10/23 6:00:00 EDT, Stop Date: 12/10/23 6:00:00 EDT, Physician Stop, Routine, 100 mL/hr Dextrose 50% injection, 25 g = 50 mL, IV, Injection, Once, First Dose: 12/10/23 6:00:00 EDT, Stop Date: 12/10/23 6:00:00 EDT, Physician Stop, Routine insulin regular 100 units/mL human recombinant injectable solution, 10 units = 0.1 mL, IV Push, Soln, Once, First Dose: 12/10/23 6:00:00 EDT, Stop Date: 12/10/23 6:00:00 EDT, Physician Stop, Routine Blood Glucose POC - Interfaced, 12/10/23 5:23:00 EDT, every 30 min, 3 hr, Stop date 12/10/23 8:29:00 EDT, Hyperkalemia Anemia Acute kidney injury ?? 3.??Acute kidney injury??N17.9 Ordered: calcium gluconate, 1,000 mg = 50 mL, IV Piggyback, Injection, Once, Administer over: 30 minutes, First Dose: 12/10/23 6:00:00 EDT, Stop Date: 12/10/23 6:00:00 EDT, Physician Stop, Routine, 100 mL/hr Dextrose 50% injection, 25 g = 50 mL, IV, Injection, Once, First Dose: 12/10/23 6:00:00 EDT, Stop Date: 12/10/23 6:00:00 EDT, Physician Stop, Routine insulin regular 100 units/mL human recombinant injectable solution, 10 units = 0.1 mL, IV Push, Soln, Once, First Dose: 12/10/23 6:00:00 EDT, Stop Date: 12/10/23 6:00:00 EDT, Physician Stop, Routine Blood Glucose POC - Interfaced, 12/10/23 5:23:00 EDT, every 30 min, 3 hr, Stop date 12/10/23 8:29:00 EDT, Hyperkalemia Anemia Acute kidney injury ?? 4.??Congestive heart failure??I50.9 ?? Orders: Electrocardiogram, 12/10/23 1:50:00 EDT, Stat, Chest Pain, Stop date 12/10/23 1:50:00 EDT Medication Reconciliation Unchanged amiodarone (amiodarone 200 mg oral tablet)1 [...] EVERY 8 HOURS NEEDED FOR PAIN. ?? sevelamer (sevelamer carbonate 800 mg oral [...] Use:. Diagnostic Results CT Abdomen and Pelvis w/o Contrast 2023 03:[address] Chest w/o Contrast 2023 03:25 EDT XR Chest 1 View 2023 02:[address] Chest w/o Contrast ?? 12/10/23 02:46:12 PROCEDURE INFORMATION: Exam: CT Chest Without Contrast; Diagnostic Exam date and time: 2023 2:46 AM Age: 47 years old Clinical indication: Anemia, unspecified; Anemia, unspecified; Hyperkalemia; Hyperkalemia; Acute kidney failure, unspecified; Acute kidney failure, unspecified; Additional info: R chest pain ?? TECHNIQUE: Imaging protocol: Diagnostic computed tomography of the chest without contrast. Radiation optimization: All CT scans at this facility use at least one of these dose optimization techniques: automated exposure control; mA and/or kV adjustment per patient size (includes targeted exams where dose is matched to clinical indication); or iterative reconstruction. ?? COMPARISON: CT ANGIO CHEST 03/08/2023 10:09 AM ?? FINDINGS: Lungs: No evidence endobronchial lesion. Decreased lung volumes. Mild left lower lobe atelectasis and/or consolidation. Mild lingular, right middle and bilateral lower lobe air space opacity. Pleural spaces: No pneumothorax. Mild bilateral pleural effusions. Heart: Heart appears within normal limits. No significant pericardial effusion. Coronary arteries: Bilateral coronary artery calcification and/or stents. Lymph nodes: Few subcentimeter mediastinal lymph nodes. Vasculature: Mild atherosclerotic calcification of the thoracic aorta. ?? Bones/joints: Healed/healing sternal incision with mediastinal clips and sternal sutures; mild anterior thoracic wall soft tissue swelling/edema. Multi-level degenerative changes involve the thoracic spine. Soft tissues: See???Bones/joints?? finding. ?? IMPRESSION: 1. Healed/healing sternal incision; mild anterior thoracic wall soft tissue swelling/edema. 2. Decreased lung volumes. 3. Mild left lower lobe atelectasis and/or consolidation. 4. Mild bilateral pleural effusions. 5. Mild lingular, right middle and bilateral lower lobe atelectasis. ? THIS DOCUMENT HAS BEEN ELECTRONICALLY SIGNED BY QUIRINO ARGUETA MD on 2023 03:24 AM ?? Signed By: Quirino Argueta MD ?? CT Abdomen and Pelvis w/o Contrast ?? 12/10/23 02:46:12 PROCEDURE INFORMATION: Exam: CT Abdomen And Pelvis Without Contrast Exam date and time: 2023 2:46 AM Age: 47 years old Clinical indication: Abdominal tenderness; Additional info: Ruq pain, anticoagulated, renal failure ?? TECHNIQUE: Imaging protocol: Computed tomography of the abdomen and pelvis without contrast. Radiation optimization: All CT scans at this facility use at least one of these dose optimization techniques: automated exposure control; mA and/or kV adjustment per patient size (includes targeted exams where dose is matched to clinical indication); or iterative reconstruction. ?? COMPARISON: CT ABD/PELVIS W CONTRAST 03/11/2022 2:46 AM ?? FINDINGS: Liver: Normal. No mass. Gallbladder and biliary ducts: Mild hyperdensity and calcification within gallbladder lumen. Pancreas: Normal. No ductal dilation. Spleen: Normal. No splenomegaly. Adrenal glands: Normal. No mass. Kidneys and ureters: Mild bilateral perinephric fat stranding. Mild bilateral perinephric fat stranding. No calcified stones within kidneys, ureters or bladder. No hydronephrosis or hydroureter. Stomach and bowel: Unremarkable. No obstruction. No mucosal thickening. Appendix: Visualized portion appendix normal. ?? Intraperitoneal space: Unremarkable. No free air. No significant fluid collection. Vasculature: Mild atherosclerotic calcification of the aortoiliac vasculature. Lymph nodes: Unremarkable. No enlarged lymph nodes. Urinary bladder: See???Kidneys and ureters?? finding. Reproductive: Prostate within normal limits size. Bones/joints: Chronic degenerative changes of the lumbar spine. Soft tissues: Moderate pelvic wall soft tissue swelling/edema. Rounded 2 cm fat containing umbilical hernia. ?? IMPRESSION: 1. Mild stones and/or sludge within gallbladder. No evidence of intrahepatic or extrahepatic biliary ductal dilatation. 2. Moderate pelvic wall soft tissue swelling/edema. 3. No evidence of small bowel obstruction. ? THIS DOCUMENT HAS BEEN ELECTRONICALLY SIGNED BY QUIRINO ARGUETA MD on 2023 03:25 AM ?? Signed By: Quirino Argueta MD ?? XR Chest 1 View ?? 12/10/23 02:02:00 PROCEDURE INFORMATION: Exam: XR Chest Exam date and time: 2023 2:02 AM Age: 47 years old Clinical indication: Shortness of breath; Additional info: Chest pain ?? TECHNIQUE: Imaging protocol: Radiologic exam of the chest. Views: 1 view. ?? COMPARISON: CR XR CHEST SINGLE VIEW 09/11/2023 12:02 PM ?? FINDINGS: Tubes, catheters and devices: Few overlying wires. ?? Lungs: Decreased lung volumes. Mild left basilar atelectasis and/or consolidation. Pleural spaces: Mild -moderate left pleural effusion. Heart/Mediastinum: Upper normal size of the cardiomediastinal silhouette. Bones/joints: Sternal sutures. ?? IMPRESSION: 1. Decreased lung volumes. 2. Mild left basilar atelectasis and/or consolidation. 3. Mild -moderate left pleural effusion. ? THIS DOCUMENT HAS BEEN ELECTRONICALLY SIGNED BY QUIRINO ARGUETA MD on 2023 02:23 AM ?? Signed By: Quirino Argueta MD ECG Sinus rhythm, rate 54,??prolonged [place] interval??at??219,??right bundle branch block,??inferior Q waves, no acute ischemic changes Lab Results CBC and Differential?? LATEST RESULTS?? HISTORICAL RESULTS?? WBC?? 12/10/23 02:00?? 6.6?? 12/01/23?? 6.8?? RBC?? 12/10/23 02:00?? 3.77 ??Low?? 12/01/23?? 4.45 ??Low?? Hgb?? 12/10/23 02:00?? 8.2 ??Low?? 12/01/23?? 9.6 ??Low?? Hct?? 12/10/23 02:00?? 27.1 ??Low?? 12/01/23?? 31.7 ??Low?? MCV?? 12/10/23 02:00?? 72.0 ??Low?? 12/01/23?? 71.3 ??Low?? MCH?? 12/10/23 02:00?? 21.7 ??Low?? 12/01/23?? 21.6 ??Low?? MCHC?? 12/10/23 02:00?? 30.2 ??Low?? 12/01/23?? 30.3 ??Low?? RDW-CV?? 12/10/23 02:00?? 24.0 ??High?? 12/01/23?? 23.3 ??High?? Platelets?? 12/10/23 02:00?? 223?? 12/01/23?? 353?? MPV?? 12/10/23 02:00?? 8.7?? 12/01/23?? 8.7?? Neutro Auto?? 12/10/23 02:00?? 67.6?? 12/01/23?? 65.1?? Lymph Auto?? 12/10/23 02:00?? 19.6 ??Low?? 12/01/23?? 21.8?? Pender Auto?? 12/10/23 02:00?? 9.3?? 12/01/23?? 9.2?? Eos, Auto?? 12/10/23 02:00?? 2.00?? 12/01/23?? 2.20?? Basophil Auto?? 12/10/23 02:00?? 1.5 ??High?? 12/01/23?? 1.7 ??High?? Neutro Absolute?? 12/10/23 02:00?? 4.5?? 12/01/23?? 4.4?? Lymph Absolute?? 12/10/23 02:00?? 1.3?? 12/01/23?? 1.5?? Pender Absolute?? 12/10/23 02:00?? 0.6?? 12/01/23?? 0.6?? Eos Absolute?? 12/10/23 02:00?? 0.1?? 12/01/23?? 0.2?? Baso Absolute?? 12/10/23 02:00?? 0.1?? 12/01/23?? 0.1?? RBC Morph?? 12/10/23 02:00?? Abnormal Abnormal?? 12/01/23?? Abnormal Abnormal?? Anisocyte?? 12/10/23 02:00?? 4+?? 09/11/23?? 1+?? Deland Cells?? 12/10/23 02:00?? 1+ Abnormal? Elliptocyte?? 12/10/23 02:00?? 1+ Abnormal? Hypochromia?? 12/10/23 02:00?? 3+ Abnormal?? 12/01/23?? 1+ Abnormal?? Microcyte?? 12/10/23 02:00?? 3+ Abnormal?? 12/01/23?? 3+ Abnormal?? Ovalocytes?? 12/10/23 02:00?? 1+ Abnormal?? 03/08/23?? 1+ Abnormal?? Plt Estimation?? 12/10/23 02:00?? Normal?? 12/01/23?? Normal?? Plt Large?? 12/10/23 02:00?? Few Abnormal?? 09/11/23?? Few Abnormal?? Poik?? 12/10/23 02:00?? 2+ Abnormal? Target Cells?? 12/10/23 02:00?? 1+ Abnormal? Teardrop Cells?? 12/10/23 02:00?? 1+ Abnormal?? 12/01/23?? 1+ Abnormal?? Slide Review?? 12/10/23 02:00?? Morph Only?? 12/01/23?? Morph Only? Routine Chemistry?? LATEST RESULTS?? HISTORICAL RESULTS?? Sodium Level?? 12/10/23 02:00?? 137?? 12/01/23?? 140?? Potassium Level?? 12/10/23 02:00?? 6.7 ??Critical?? 12/01/23?? 5.0?? Chloride Level?? 12/10/23 02:00?? 111 ??High?? 12/01/23?? 111 ??High?? CO2?? 12/10/23 02:00?? 20 ??Low?? 12/01/23?? 22?? Alk Phos?? 12/10/23 02:00?? 89?? 12/01/23?? 103?? AST?? 12/10/23 02:00?? 46 ??High?? 12/01/23?? 11 ??Low?? ALT?? 12/10/23 02:00?? 66 ??High?? 12/01/23?? 13?? BUN?? 12/10/23 02:00?? 80 ??High?? 12/01/23?? 53 ??High?? Glucose Level?? 12/10/23 02:00?? 134 ??High?? 12/01/23?? 75?? Creatinine Level?? 12/10/23 02:00?? 4.20 ??High?? 12/01/23?? 2.70 ??High?? BUN/Creat Ratio?? 12/10/23 02:00?? 19.0?? 12/01/23?? 19.6?? eGFR CKD-EPI?? 12/10/23 02:00?? 17 ??Low?? 12/01/23?? 29 ??Low?? Calcium Level?? 12/10/23 02:00?? 8.6?? 12/01/23?? 9.1?? Protein Total?? 12/10/23 02:00?? 6.7?? 12/01/23?? 7.2?? Albumin Level?? 12/10/23 02:00?? 3.5?? 12/01/23?? 3.7?? Globulin?? 12/10/23 02:00?? 3.2?? 12/01/23?? 3.5?? A/G Ratio?? 12/10/23 02:00?? 1.1?? 12/01/23?? 1.1?? Bilirubin Total?? 12/10/23 02:00?? 0.3?? 12/01/23?? 0.4?? Anion Gap?? 12/10/23 02:00?? 6.0?? 12/01/23?? 7.0?? Magnesium Level?? 12/10/23 02:00?? 2.3?? 03/08/23?? 2.3?? Osmolality?? 12/10/23 02:00?? 300 ??High?? 12/01/23?? 292? Cardiac Isoenzymes?? LATEST RESULTS?? HISTORICAL RESULTS?? BNP?? 12/10/23 01:56?? 572 ??High?? 09/11/23?? 126 ??High?? Troponin-I HS?? 12/10/23 02:00?? 35 ??High?? 09/11/23?? 25 ??High? Electronically Signed on 2023 08:17 EDT Carlos MD Pete Patient Care team information Care Team Personnel Name: MARIBETH BARKER MD Position: No Access Member Role: Primary Care Physician Address: [address] [place] [address] Care Team Related Persons Name: GRETTA SALGADO Name: GRETTA SALGADO Name: AARTI SALGADO Name: AARTI SALGADO Insurance Providers Guarantor name: SHOSHANA SALGADO Health Plan Information #: 1 Payer: [facility] Member Number: [id number] Policy Number: [id number] Health Plan Information #: 2 Payer: [facility] Member Number: [id number] Policy Number:
--- OUTSIDE RECORDS SUMMARY | 2024-01-04 13:06 | XMS_ITS | Continuity of Care Document ---
Author Organization [facility] Address [address] [place] [address] Care Team Providers Care Community Service Representative Name Role Phone MARIBETH BARKER MD Primary Care Physician Encounter LTTL_KS FIN NBR [id number] Date(s): 12/06/22 - 12/06/22 [facility] [address] [place] [address]- Encounter Diagnosis Dental caries(Discharge Diagnosis) - 12/06/22 Discharge Disposition: Home or Self Care Attending Physician: Federico Cervantes MD Admitting Physician: Federico Cervantes MD Allergies, Adverse Reactions, Alerts Substance Reaction Severity Status melatonin Restless legs syndrome Unknown Activ e Diphendramine HCL Hyperactivity level Unknown Act nomi Functional Status 12/06/22 Family Member Travel History No recent t ravel Recent Travel History No recent travel Other exposure to Infectious Disease Non e Medications amoxicillin-clavulanate 875 mg-125 mg oral tablet 1 tab, Oral, every 12 hr, # 20 tab, 0 Refill(s), Pharmacy: [id number], 177, cm, 07/08/2313:39:00 EDT, [...] Start Date: 03/11/22 Status: Ordered Mental Status 12/06/22 Eye Opening Response [place] Spontaneous ly Best Verbal Response [place] Oriented Best Motor Response [place] Obeys comman ds [place] Coma Score 15 Problem List Condition Confirmation [...] 1 2 Temperature Oral [35.8-37.3 Deg C] 36.3 Deg C (12/06/22 1:07 AM) Peripheral Pulse Rate [60-100 bpm] 75 bp m (12/06/22 1:58 AM) 73 bpm (12/06/22 1:07 AM) Respiratory Rate [12-24 br/min] 18 br/mi n (12/06/22 1:58 AM) 18 br/min (12/06/22 1:07 AM) Blood Pressure [90-140/60-90 mmHg] 181/8 2mmHg *HI* (12/06/22 1:58 AM) 206/87mmHg *HI* (12/06/22 1:07 AM) Mean Arterial Pressure, Cuff [65-140 mmH g] 127 mmHg (12/06/22 1:07 AM) Weight 117.93 kg (12/06/22 1:07 AM) Weight Dosing 117.93 kg (12/06/22 1:17 AM) Height 177.800 cm (12/06/22 1:07 AM) Height/Length Dosing 177.800 cm (12/06/22 1:17 AM) Body Mass Index 37.000 kg/m2 (12/06/22 1:07 AM) Social History Social History Type Response Tobacco Former tobacco user Tobacco Use:. 10-15 cigarettes a day per day. 7 year(s). Sex Hospital Discharge Instructions Patient Education 12/06/2022 00:55:29 Dental Caries, Adult Dental Caries, Adult Dental [...] this prevented? To prevent dental caries: ??? [place] your teeth every morning and night with [...] provider. Document Revised: 01/24/2020 Document Reviewed: 01/24/2020 Elsevier Patient Education ?? 2022 [employer]. Follow Up Care 12/06/2022 01:07:30 With:Dentist Address: When:24 Hours Discharge instructions * Event Display: Discharge Instructions Physician Emergency department Note * Federico Cervantes MD: PERFORM Event Display: ED Note Physician Authored Date: [id number] SHOSHANA SALGADO :1975 Age:46 years Sex:Male Visit Date:12/06/2022 Primary Care Physician: MARIBETH BARKER MD Basic Information Time Seen: Federico Cervantes MD / 12/06/2022 01:15 Chief Complaint Patient c/o roght lower back tooth pain x 2 wks, has dentist appt on 12/07. ??Was seen in ED last Wed for same. ??Patient states I just need something to help the pain so I can sleep. 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 History Of Present Illness: 46-year-old male presents the ER complaining of right lower dental pain. ??The patient states he had pain for about a week. ??He was seen in urgent care and started on Augmentin.?? He was seen in theER??several days ago for continued pain and given a nerve block but feels he did not get much relief from this.?? He has been taking ibuprofen and Tylenol at home??and has dental appointment tomorrowbut could not sleep due to the pain and now comes in for evaluation. ??Denies any fevers or chills.??No difficulty breathing or swallowing.?? He has not noticed any drainage to the area. Review of Systems: CONSTITUTIONAL:??No fevers or chills. ENT:??No headache or neck pain. CARDIOVASCULAR:??No chest pain or passing out episodes. RESPIRATORY:??No cough or shortness of breath. GI:??No vomiting or diarrhea. NEUROLOGIC:??No focal numbness or weakness. ?? Review of systems otherwise as stated in HPI Physical Exam Vitals & Measurements T:??36.3?C ??(Oral)?? HR:??75??(Peripheral)?? RR:??18?? BP:??181/82?? SpO2:??98%?? HT:??177.800??cm?? WT:??117.93??kg?? BMI:??37.000?? Pain Score:??2?? O2 Therapy:??Room air?? GENERAL:??Awake and alert. ??Moderate discomfort. HEENT:??Normocephalic, atraumatic. ??No asymmetric facial swelling. ??No trismus or drooling. ??Inspection of the oral cavity reveals caries at the buccal mucosa of tooth #31 and 32 with decay at thegumline. ??No palpable drainable abscess. ??No sublingual tenderness. ??Oropharynx is widely patent. HEART:??Regular rate and rhythm. LUNGS:??No respiratory distress. EXTREMITIES:??No obvious deformity. NEUROLOGIC:??Awake, alert, and oriented x3. ??Moves all extremities. SKIN:??Warm and dry. Medical Decision Making: Dental pain. ??The patient has dental caries with erosion of the gumline of tooth #31 and 32. ??He experienced excellent near complete analgesia after periapical dental block and??cavity liner was??applied??for coverage.?? There is no drainable abscess visible. ??He is already on antibiotics. ??Continue ibuprofen and Tylenol as needed. ??He has a dentist appointment coming up??tomorrow which he should keep. ??Return for new or worsening symptoms that were discussed with him. Procedure Procedure note: Dental block. ??The patient was given a periapical dental block of tooth #31 and 32using??0.5% bupivacaine with epinephrine 2 cc. ??The patient experienced immediate??near complete relief of pain. ?? Procedure note:??Temporary cavity liner.?? The??areas of decay of tooth #31 and 32 were sealed with??temporary light cured cavity liner and cured with UV light.?? Patient tolerated the procedure well. ??No immediate complications. No Qualifying Data Assessment/Plan 1.??Dental caries??K02.9 Orders: Discharge Patient, 12/06/22 1:56:00 EDT Patient Education Dental Caries, Adult Follow Up With When Contact Information Dentist Within 24 Hours Additional Instructions: Medication Reconciliation Unchanged amoxicillin-clavulanate (amoxicillin-clavulanate 875 mg-125 [...] per day. 7 year(s). Electronically Signed on 12/06/22 02:00 AM Federico Cervantes MD Emergency department Discharge instructions * Federico Cervantes MD: PERFORM Event Display: ED Discharge Information Authored Date: [id number] SHOSHANA SALGADO :1975 Age:46 years Sex:Male Visit Date:12/06/2022 Primary Care Physician: MARIBETH BARKER MD Discharge Instructions We would like to thank you for allowing us to assist you with your healthcare needs. The following includes patient education materials and information regarding your injury/illness. Diagnosis from Today's Visit Dental caries Discharge Vitals Temperature??(Oral) 97.3 ??F (36.3 ??C) Heart Rate??(Peripheral) 73 Respiratory Rate?? 18 Blood Pressure?? 206/87?? Height?? 70.00 in (177.800 cm) Weight?? 260.04 lb (117.93 kg) BMI?? 37.000 Allergies Diphendramine HCL??(Hyperactivity level) melatonin??(Restless legs syndrome) What to Do Next You Need to Schedule the Following Appointments Follow Up with??Dentist When:??Within 24 Hours You were treated today on an emergency [...] How Much When Why Instructions Next Dose Unchanged amoxicillin-clavulanate (amoxicillin-clavulanate 875 mg-125 mg oral [...] tab Oral (given by mouth) Every evening Education Materials Dental Caries, Adult Dental caries or cavities [...] this prevented? To prevent dental caries: ? [place] your teeth every morning and night with [...] provider. Document Revised: 01/24/2020 Document Reviewed: 01/24/2020 Elsevier Patient Education ?? 2022 [employer] 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 Signature: Relationship to Patient: Witness Name/Signature: Date: Electronically Signed on: 12/06/2022 01:56 EDTSigned by: Patient Care team information Care Team Personnel Name: MARIBETH BARKER MD Position: No Access Member Role: Primary Care Physician Address: Address: [address] [place] [id number] [place] Name: Federico Cervantes MD Position: Physician Member Role: ED Physician Address: Address: [address] [place] [id number] Name: Josee Mancia Position: Nurse Member Role: Registered Nurse Care Team Related Persons Name: GRETTA SALGADO Name: GRETTA SAGLADO Address: Home [address] [place] [phone] [place] Address: Mailing [address] [place] [phone]
--- OUTSIDE RECORDS SUMMARY | 2024-01-04 13:06 | XMS_ITS | Continuity of Care Document ---
Author Organization [facility] Address [address] [place] [address] Encounter LTTL_AZ FIN NBR [id number] Date(s): 01/05/22 - 01/05/22 [facility] [address] [place] [address]- Encounter Diagnosis Gastritis(Discharge Diagnosis) - 01/05/22 Elevated serum creatinine(Discharge Diagnosis) - 01/05/22 Discharge Disposition: Home or Self Care Attending Physician: Julio Fan MD Admitting Physician: Julio Fan MD Allergies, Adverse Reactions, Alerts No Known Medication [...] Daily, # 14 cap, 0 Refill(s), Pharmacy: [id number], 1, cm, 01/05/2215:00:00 EST, Height/Length [...] Results Laboratory List Name Date .Morphology (LTTL) 01/05/22 CBC w/ Diff 01/05/22 Comprehensive Metabolic Panel (CMP) 12/21 08/11 D-Dimer 01/05/22 Troponin-I 01/05/22 Automated Diff 01/05/22 Most recent to oldest [Reference Range]: 1 WBC [4.8-10.8 K/mcL] 10.2 K/mcL (01/05/22 3:00 PM) RBC [4.20-6.10 Million/mcL] 5.70 Million /mcL (01/05/22 3:00 PM) Neutro Auto [42.2-75.2 %] 71.6 % (01/05/22 3:00 PM) Lymph Auto [20.5-51.1 %] 17.3 % *LOW* (01/05/22 3:00 PM) [place] Auto [1.7-9.3 %] 7.1 % (01/05/22 3:00 PM) Basophil Auto [0.0-0.8 %] 1.0 % *HI* (01/05/22 3:00 PM) BUN [8-26 mg/dL] 31 mg/dL *HI* (01/05/22 3:00 PM) Glucose Level [74-106 mg/dL] 185 mg/dL *HI* (01/05/22 3:00 PM) Potassium Level [3.5-5.1 mmol/L] 4.2 mmo l/L (01/05/22 3:00 PM) Baso Absolute [0.0-0.2 K/mcL] 0.1 K/mcL (01/05/22 3:00 PM) MCV [80.0-99.0 fL] 68.9 fL *LOW* (01/05/22 3:00 PM) RBC Morph [Normal] Abnormal *ABN* (01/05/22 3:00 PM) AST [15-41 IntlUnit/L] 23 IntlUnit/L (01/05/22 3:00 PM) ALT [17-63 IntlUnit/L] 27 IntlUnit/L (01/05/22 3:00 PM) MCHC [32.0-36.0 g/dL] 30.0 g/dL *LOW* (01/05/22 3:00 PM) Osmolality [275-295 mOsm/kg] 285 mOsm/kg (01/05/22 3:00 PM) Troponin-I [<=0.05 ng/mL] <0.01 ng/mL (01/05/22 3:00 PM) Sodium Level [134-143 mmol/L] 137 mmol/L (01/05/22 3:00 PM) Lymph Absolute [1.2-3.4 K/mcL] 1.8 K/mcL (01/05/22 3:00 PM) Hct [37.0-52.0 %] 39.3 % (01/05/22 3:00 PM) Microcyte 2+ *ABN* (01/05/22 3:00 PM) Hypochromia 2+ *ABN* (01/05/22 3:00 PM) Calcium Level [8.9-10.3 mg/dL] 9.0 mg/dL (01/05/22 3:00 PM) [place] Absolute [0.1-0.6 K/mcL] 0.7 K/mcL *HI* (01/05/22 3:00 PM) Albumin Level [3.5-5.0 g/dL] 3.5 g/dL (01/05/22 3:00 PM) Protein Total [6.5-8.1 g/dL] 6.9 g/dL (01/05/22 3:00 PM) MCH [27.0-31.0 pg] 20.7 pg *LOW* (01/05/22 3:00 PM) Neutro Absolute [1.4-6.5 K/mcL] 7.3 K/mc L *HI* (01/05/22 3:00 PM) Bilirubin Total [0.2-1.2 mg/dL] 0.3 mg/d L (01/05/22 3:00 PM) Hgb [12.0-18.0 g/dL] 11.8 g/dL *LOW* (01/05/22 3:00 PM) Alk Phos [38-130 IntlUnit/L] 62 IntlUnit /L (01/05/22 3:00 PM) MPV [7.4-10.4 fL] 11.9 fL *HI* (01/05/22 3:00 PM) Platelets [130-400 K/mcL] 257 K/mcL (01/05/22 3:00 PM) CO2 [22-32 mmol/L] 26 mmol/L (01/05/22 3:00 PM) Eos Absolute [0.0-0.2 K/mcL] 0.3 K/mcL *HI* (01/05/22 3:00 PM) eGFR Non-AA 52 *NA* (01/05/22 3:00 PM) eGFR AA 52 *NA* (01/05/22 3:00 PM) Chloride Level [98-111 mmol/L] 100 mmol/ L (01/05/22 3:00 PM) RDW-CV [11.5-14.5 %] 18.0 % *HI* (01/05/22 3:00 PM) A/G Ratio 1.0 *NA* (01/05/22 3:00 PM) BUN/Creat Ratio [8.0-20.0] 18.8 (01/05/22 3:00 PM) Globulin 3.4 *NA* (01/05/22 3:00 PM) Imm Gran Absolute 0.04 *NA* (01/05/22 3:00 PM) Imm Gran Auto [0.0-0.5 %] 0.4 % (01/05/22 3:00 PM) NRBC Auto 0 *NA* (01/05/22 3:00 PM) NRBC Absolute 0 *NA* (01/05/22 3:00 PM) Plt Large Few *ABN* (01/05/22 3:00 PM) Creatinine Level [0.61-1.24 mg/dL] 1.65 mg/dL *HI* (01/05/22 3:00 PM) Plt Estimation Normal (01/05/22 3:00 PM) Anion Gap [3.0-12.0] 11.0 (01/05/22 3:00 PM) D Dimer, (Quant.) [<=500 ng/mL] 353 ng/m L (01/05/22 3:00 PM) Eos, Auto [0.00-3.00 %] 2.60 % (01/05/22 3:00 PM) Radiology Reports * Exam Date Time Procedure Performing Provider Status 01/05/22 3:11 PM XR Chest 2 Views Lynda Wilcox cox monett (Verified) Notes: (XR Chest 2 Views) Reason For Exam: Chest Pain XR Chest 2 Views EXAM DESCRIPTION: XR Chest 2 Views 01/05/2022 INDICATION: CHEST PAIN COMPARISON: 02/16/2021 FINDINGS: Clear lungs with no focal infiltrate or pulmonary edema. Normal cardiomediastinal contour. Normal pleural margins with no pleural effusion or pneumothorax. Spondylotic changes of the dorsal spine. IMPRESSION: No active chest disease. JOB #: [id number] Final Signed by: Vahe Espinoza MD Signed (Electronic Signature): 01/05/2022 3:38 pm Vital Signs Most recent to oldest [Reference Range]: 1 2 3 Temperature Temporal Artery [36-38 Deg C] 36.5 Deg C (01/05/22 2:42 PM) Peripheral Pulse Rate [60-100 bpm] 93 bpm (01/05/22 5:30 PM) 93 bpm (01/05/22 5:00 PM) 86 bpm (01/05/22 4:30 PM) Heart Rate Monitored [60-100 bpm] 94 bpm (01/05/22 5:30 PM) 95 bpm (01/05/22 5:00 PM) 82 bpm (01/05/22 4:30 PM) Respiratory Rate [12-24 br/min] 17 br/min (01/05/22 5:30 PM) 17 br/min (01/05/22 5:00 PM) 14 br/min (01/05/22 4:30 PM) Blood Pressure [90-140/60-90 mmHg] 135/85mmHg (01/05/22 5:30 PM) 162/93mmHg *HI* (01/05/22 5:00 PM) 143/96mmHg *HI* (01/05/22 4:30 PM) Mean Arterial Pressure Cuff 101 mmHg (01/05/22 5:30 PM) 112 mmHg (01/05/22 5:00 PM) 112 mmHg (01/05/22 4:30 PM) Weight Dosing 117.00 kg (01/05/22 3:00 PM) Weight Estimated 117.00 kg (01/05/22 2:42 PM) Height/Length Dosing 1.000 cm (01/05/22 3:00 PM) Height/Length Estimated 1.000 cm (01/05/22 2:42 PM) Social History Social History Type Response Tobacco Never tobacco user T obacco Use:. Sex Hospital Discharge Instructions Patient Education 01/05/2022 16:33:04 Gastritis, Adult Gastritis, Adult Gastritis is inflammation of the stomach. There are two kinds of gastritis: ??? Acute gastritis. This kind develops suddenly. ??? Chronic gastritis. This kind is much more common and lasts for a long time. Gastritis happens when the lining of the stomach becomes weak or gets damaged. Without treatment, gastritis can lead to stomach bleeding and ulcers. What are the causes? This condition may be caused by: ??? An infection. ??? Drinking too much alcohol. ??? Certain medicines. These include steroids, antibiotics, and some egws-nkc-grqvowm medicines, such as aspirin or ibuprofen. ??? Having too much acid in the stomach. ??? A disease of the intestines or stomach. ??? Stress. ??? An allergic reaction. ??? Crohn's disease. ??? Some cancer treatments (radiation). Sometimes the cause of this condition is not known. What are the signs or symptoms? Symptoms of this condition include: ??? Pain or a burning sensation in the upper abdomen. ??? Nausea. ??? Vomiting. ??? An uncomfortable feeling of fullness after eating. ??? Weight loss. ??? Bad breath. ??? Blood in your vomit or stools. In some cases, there are no symptoms. How is this diagnosed? This condition may be diagnosed with: ??? Your medical history and a description of your symptoms. ??? A physical exam. ??? Tests. These can include: ??? Blood tests. ??? Stool tests. ??? A test in which a thin, flexible instrument with a light and a camera is passed down the esophagus and into the stomach (upper endoscopy). ??? A test in which a sample of tissue is taken for testing (biopsy). How is this treated? This condition may be treated with medicines. The medicines that are used vary depending on the cause of the gastritis: ??? If the condition is caused by a bacterial infection, you may be given antibiotic medicines. ??? If the condition is caused by too much acid in the stomach, you may be given medicines called H2 blockers, proton pump inhibitors, or antacids. Treatment may also involve stopping the use of certain medicines, such as aspirin, ibuprofen, or other NSAIDs. Follow these instructions at home: Medicines ??? Take zohm-dux-yqyzhec and prescription medicines only as told by your health care provider. ??? If you were prescribed an antibiotic medicine, take it as told by your health care provider. Donot stop taking the antibiotic even if you start to feel better. Eating and drinking ??? Eat small, frequent meals instead of large meals. ??? Avoid foods and drinks that make your symptoms worse. ??? Drink enough fluid to keep your urine pale yellow. Alcohol use ??? Do not drink alcohol if: ??? Your health care provider tells you not to drink. ??? You are , may be , or are planning to become . ??? If you drink alcohol: ??? Limit your use to: ??? 0???1 drink a day for women. ??? 0???2 drinks a day for men. ??? Be aware of how much alcohol is in your drink. In the [place] one drink equals one 12 oz bottle of beer (355 mL), one 5 oz glass of wine (148 mL), or one 1?? oz glass of hard liquor (44 mL). General instructions ??? Talk with your health care provider about ways to manage stress, such as getting regular exercise or practicing deep breathing, meditation, or yoga. ??? Do not use any products that contain nicotine or tobacco, such as cigarettes and e-cigarettes. If you need help quitting, ask your health care provider. ??? Keep all follow-up visits as told by your health care provider. This is important. Contact a health care provider if: ??? Your symptoms get worse. ??? Your symptoms return after treatment. Get help right away if: ??? You vomit blood or material that looks like coffee grounds. ??? You have black or dark red stools. ??? You are unable to keep fluids down. ??? Your abdominal pain gets worse. ??? You have a fever. ??? You do not feel better after one week. Summary ??? Gastritis is inflammation of the lining of the stomach that can occur suddenly (acute) or develop slowly over time (chronic). ??? This condition is diagnosed with a medical history, a physical exam, or tests. ??? This condition may be treated with medicines to treat infection or medicines to reduce the amount of acid in your stomach. ??? Follow your health care provider's instructions about taking medicines, making changes to your diet, and knowing when to call for help. This information is not intended to replace advice given to you by your health care provider. Make sure you discuss any questions you have with your health care provider. Document Revised: 06/26/2018 Document Reviewed: 06/26/2018 [employer] Patient Education ?? 2021 [employer]. 01/05/2022 16:32:13 Gastritis, Adult Gastritis, Adult Gastritis is inflammation of the stomach. There are two kinds of gastritis: ??? Acute gastritis. This kind develops suddenly. ??? Chronic gastritis. This kind is much more common and lasts for a long time. Gastritis happens when the lining of the stomach becomes weak or gets damaged. Without treatment, gastritis can lead to stomach bleeding and ulcers. What are the causes? This condition may be caused by: ??? An infection. ??? Drinking too much alcohol. ??? Certain medicines. These include steroids, antibiotics, and some dmog-zlu-emalnfr medicines, such as aspirin or ibuprofen. ??? Having too much acid in the stomach. ??? A disease of the intestines or stomach. ??? Stress. ??? An allergic reaction. ??? Crohn's disease. ??? Some cancer treatments (radiation). Sometimes the cause of this condition is not known. What are the signs or symptoms? Symptoms of this condition include: ??? Pain or a burning sensation in the upper abdomen. ??? Nausea. ??? Vomiting. ??? An uncomfortable feeling of fullness after eating. ??? Weight loss. ??? Bad breath. ??? Blood in your vomit or stools. In some cases, there are no symptoms. How is this diagnosed? This condition may be diagnosed with: ??? Your medical history and a description of your symptoms. ??? A physical exam. ??? Tests. These can include: ??? Blood tests. ??? Stool tests. ??? A test in which a thin, flexible instrument with a light and a camera is passed down the esophagus and into the stomach (upper endoscopy). ??? A test in which a sample of tissue is taken for testing (biopsy). How is this treated? This condition may be treated with medicines. The medicines that are used vary depending on the cause of the gastritis: ??? If the condition is caused by a bacterial infection, you may be given antibiotic medicines. ??? If the condition is caused by too much acid in the stomach, you may be given medicines called H2 blockers, proton pump inhibitors, or antacids. Treatment may also involve stopping the use of certain medicines, such as aspirin, ibuprofen, or other NSAIDs. Follow these instructions at home: Medicines ??? Take ralr-gwr-swkahih and prescription medicines only as told by your health care provider. ??? If you were prescribed an antibiotic medicine, take it as told by your health care provider. Donot stop taking the antibiotic even if you start to feel better. Eating and drinking ??? Eat small, frequent meals instead of large meals. ??? Avoid foods and drinks that make your symptoms worse. ??? Drink enough fluid to keep your urine pale yellow. Alcohol use ??? Do not drink alcohol if: ??? Your health care provider tells you not to drink. ??? You are , may be , or are planning to become . ??? If you drink alcohol: ??? Limit your use to: ??? 0???1 drink a day for women. ??? 0???2 drinks a day for men. ??? Be aware of how much alcohol is in your drink. In the [place] one drink equals one 12 oz bottle of beer (355 mL), one 5 oz glass of wine (148 mL), or one 1?? oz glass of hard liquor (44 mL). General instructions ??? Talk with your health care provider about ways to manage stress, such as getting regular exercise or practicing deep breathing, meditation, or yoga. ??? Do not use any products that contain nicotine or tobacco, such as cigarettes and e-cigarettes. If you need help quitting, ask your health care provider. ??? Keep all follow-up visits as told by your health care provider. This is important. Contact a health care provider if: ??? Your symptoms get worse. ??? Your symptoms return after treatment. Get help right away if: ??? You vomit blood or material that looks like coffee grounds. ??? You have black or dark red stools. ??? You are unable to keep fluids down. ??? Your abdominal pain gets worse. ??? You have a fever. ??? You do not feel better after one week. Summary ??? Gastritis is inflammation of the lining of the stomach that can occur suddenly (acute) or develop slowly over time (chronic). ??? This condition is diagnosed with a medical history, a physical exam, or tests. ??? This condition may be treated with medicines to treat infection or medicines to reduce the amount of acid in your stomach. ??? Follow your health care provider's instructions about taking medicines, making changes to your diet, and knowing when to call for help. This information is not intended to replace advice given to you by your health care provider. Make sure you discuss any questions you have with your health care provider. Document Revised: 06/26/2018 Document Reviewed: 06/26/2018 [employer] Patient Education ?? 2021 [employer]. Follow Up Care 01/05/2022 14:41:59 With:Follow up with primary care provider Address: When:3 to 5 days Physician Emergency department Note * GLENIS Zavaleta: PERFORM Event Display: ED Note Physician Authored Date: [id number] SHOSHANA SALGADO :1975 Age:46 years Sex:Male Visit Date:01/05/2022 Basic Information Time Seen: GLENIS Zavaleta / 01/05/2022 14:50 Chief Complaint Pt reports CP for 6 days. hx NC. History Of Present Illness: Patient is a 46-year-old male presenting to the emergency department from urgent care for chest pain.?? Reports 6 days of left-sided chest pain.?? Initially when it started he thought it was gas painhowever pain is continued and then got worse in severity today.?? At 1 point today pain got so intense he felt like he might pass out.?? Pain is worse with deep inspiration.?? No recent colds or fevers.?? Denies cough or shortness of breath.?? No leg swelling.?? History of cardiac stenting x2 3 years ago.?? He is a non-smoker.?? Denies any provoking activity for his chest pain.?? Nothing seems tomake pain worse or better. Review of Systems: Constitutional:?No??fevers,?No??chills,?No??sweats ENT:?No??nasal congestion,?No??sore throat Respiratory:?No??shortness of breath,?No??cough Cardiovascular:?Positive for??Chest pain,?No??palpitations,?No??syncope Gastrointestinal:?Positive fornausea,?No??vomiting,?No??diarrhea,??NoAbdominal pain Musculoskeletal:??No??back pain,??No??neck pain,??No??joint pain Integumentary:?No??rash,?No??abrasions Physical Exam Vitals & Measurements T:??36.5?C ??(Temporal Artery)?? HR:??93??(Peripheral)?? HR:??94??(Monitored)?? RR:??17?? BP:??135/85?? SpO2:??100%?? HT:??1.000??cm?? WT:??117.00??kg??(Estimated)?? Pain Score:??6?? O2 Therapy:??Room air?? GENERAL: Awake and alert. No acute distress ?? CARDIOVASCULAR: Regular rate and rhythm, no murmur no rub ?? LUNGS: No respiratory distress. Chest nontender. Normal breath sounds. No wheezing or crackles ?? ABDOMEN: Abdomen soft nontender nondistended active bowel sounds. No CVA/flank tenderness ?? EXTREMITIES: ?? Nontender. normal range of motion. ?? NEUROLOGIC: Alert and oriented x4. Motor normal.?Sensation normal. ?? SKIN: Color normal. ??Warm dry intact. No Rash ?? VASCULAR: Normal pedal pulses. No peripheral edema. Procedure No Qualifying Data Assessment/Plan 1.??Gastritis??K29.70 EKG, chest x-ray??troponin and D-dimer??unremarkable.?? Given GI cocktail with complete resolution in pain. ??Will start on omeprazole.?? Instructed to take Maalox as needed.?? Follow-up with primarycare provider next week.?? Return to ER if any worsening or changes. Ordered: omeprazole 40 mg oral delayed release capsule, 40 mg = 1 cap, Oral, Daily, # 14 cap, 0 Refill(s), Pharmacy: [id number], 1, cm, 01/05/22 15:00:00 EST, Height/Length Dosing, 117, kg, 01/05/22 15:00:00 EST, Weight Dosing ?? 2.??Elevated serum creatinine??R79.89 Creatinine found to be mildly elevated at??1.65, previously was slightly elevated.?? Admits to not drinking??as many fluids. ??I encouraged increased hydration and close recheck of this value with his primary care provider. ??He states understanding and agrees with above plan. ?? Orders: Sodium Chloride 0.9% 1,000 mL, Total Volume (mL): 1,000, 1,000 mL, Soln-IV, IV Bolus, 999 mL/hr, Order Duration: 1 times, Start Date: 01/05/22 16:41:00 EST, Stop Date: 01/05/22 17:40:00 EST, 117 kg, Populate Charting Weight From Order, 0.18, m2 Discharge Patient, 01/05/22 17:34:00 EST Patient Education Gastritis, Adult Gastritis, Adult Follow Up With When Contact Information Follow up with primary care provider Within 3 to 5 days Additional Instructions: Medication Reconciliation New Prescription omeprazole (omeprazole 40 mg oral delayed release capsule)1 Capsules Oral (given by mouth) every day. Refills: 0. ?? Unchanged atorvastatin ?? citalopram ?? clopidogrel ?? dulaglutide (Trulicity Pen) ?? gabapentin ?? insulin lispro (HumaLOG) ?? lisinopril Problem List/Past Medical History Ongoing Diabetes Heart attack High blood pressure Historical No qualifying data Procedure/Surgical History ???Stent placement Medication Administration Given Sodium Chloride 0.9%, 1000 mL, IV Bolus Al hydroxide/Mg hydroxide/simethicone, 30 mL, Oral Lidocaine Viscous, 15 mL, Oral Allergies No Known Medication Allergies Social History Electronic Cigarette/Vaping Electronic Cigarette Use: Never. Tobacco Never tobacco user Tobacco Use:. Diagnostic Results XR Chest 2 Views 01/05/2022 15:40 EST XR Chest 2 Views ?? 01/05/22 15:38:01 EXAM DESCRIPTION: XR Chest 2 Views ?? 01/05/2022 ? INDICATION: CHEST PAIN ?? COMPARISON: 02/16/2021 ?? FINDINGS: Clear lungs with no focal infiltrate or pulmonary edema. Normal cardiomediastinal contour. Normal pleural margins with no pleural effusion or pneumothorax. Spondylotic changes of the dorsal spine. ?? IMPRESSION: No active chest disease. ? JOB #: [id number] Electronically Signed By: ?? Signed By: Vahe Espinoza MD ECG ?? Normal sinus rhythm rate of 99. ??No ST elevations. ??Reviewed with Dr. Fan. Lab Results CBC and Differential?? LATEST RESULTS?? WBC?? 01/05/22 15:00?? 10.2?? RBC?? 01/05/22 15:00?? 5.70?? Hgb?? 01/05/22 15:00?? 11.8 ??Low?? Hct?? 01/05/22 15:00?? 39.3?? MCV?? 01/05/22 15:00?? 68.9 ??Low?? MCH?? 01/05/22 15:00?? 20.7 ??Low?? MCHC?? 01/05/22 15:00?? 30.0 ??Low?? RDW-CV?? 01/05/22 15:00?? 18.0 ??High?? Platelets?? 01/05/22 15:00?? 257?? MPV?? 01/05/22 15:00?? 11.9 ??High?? Neutro Auto?? 01/05/22 15:00?? 71.6?? Lymph Auto?? 01/05/22 15:00?? 17.3 ??Low?? [place] Auto?? 01/05/22 15:00?? 7.1?? Eos, Auto?? 01/05/22 15:00?? 2.60?? Basophil Auto?? 01/05/22 15:00?? 1.0 ??High?? Imm Gran Auto?? 01/05/22 15:00?? 0.4?? NRBC Auto?? 01/05/22 15:00?? 0?? Neutro Absolute?? 01/05/22 15:00?? 7.3 ??High?? Lymph Absolute?? 01/05/22 15:00?? 1.8?? [place] Absolute?? 01/05/22 15:00?? 0.7 ??High?? Eos Absolute?? 01/05/22 15:00?? 0.3 ??High?? Baso Absolute?? 01/05/22 15:00?? 0.1?? Imm Gran Absolute?? 01/05/22 15:00?? 0.04?? NRBC Absolute?? 01/05/22 15:00?? 0?? RBC Morph?? 01/05/22 15:00?? Abnormal Abnormal?? Hypochromia?? 01/05/22 15:00?? 2+ Abnormal?? Microcyte?? 01/05/22 15:00?? 2+ Abnormal?? Plt Estimation?? 01/05/22 15:00?? Normal?? Plt Large?? 01/05/22 15:00?? Few Abnormal? Coagulation?? LATEST RESULTS?? D Dimer, (Quant.)?? 01/05/22 15:00?? 353? Routine Chemistry?? LATEST RESULTS?? Sodium Level?? 01/05/22 15:00?? 137?? Potassium Level?? 01/05/22 15:00?? 4.2?? Chloride Level?? 01/05/22 15:00?? 100?? CO2?? 01/05/22 15:00?? 26?? Alk Phos?? 01/05/22 15:00?? 62?? AST?? 01/05/22 15:00?? 23?? ALT?? 01/05/22 15:00?? 27?? BUN?? 01/05/22 15:00?? 31 ??High?? Glucose Level?? 01/05/22 15:00?? 185 ??High?? Creatinine Level?? 01/05/22 15:00?? 1.65 ??High?? BUN/Creat Ratio?? 01/05/22 15:00?? 18.8?? eGFR AA?? 01/05/22 15:00?? 52?? eGFR Non-AA?? 01/05/22 15:00?? 52?? Calcium Level?? 01/05/22 15:00?? 9.0?? Protein Total?? 01/05/22 15:00?? 6.9?? Albumin Level?? 01/05/22 15:00?? 3.5?? Globulin?? 01/05/22 15:00?? 3.4?? A/G Ratio?? 01/05/22 15:00?? 1.0?? Bilirubin Total?? 01/05/22 15:00?? 0.3?? Anion Gap?? 01/05/22 15:00?? 11.0?? Osmolality?? 01/05/22 15:00?? 285? Cardiac Isoenzymes?? LATEST RESULTS?? Troponin-I?? 01/05/22 15:00?? <0.01? Electronically Signed on 01/05/22 05:38 PM GLENIS Zavaleta Emergency department Discharge instructions * GLENIS Zavaleta: PERFORM Event Display: ED Discharge Information Authored Date: [id number] SHOSHANA SALGADO :1975 Age:46 years Sex:Male Visit Date:01/05/2022 Discharge Instructions We would like to thank you for allowing us to assist you with your healthcare needs. The following includes patient education materials and information regarding your injury/illness. ?? Follow up with PCP for repeat blood work, increase fluid intake ?? Start omeprazole for your stomach, OTC Maalox okay to take as well Diagnosis from Today's Visit Gastritis Elevated serum creatinine Discharge Vitals Temperature??(Temporal Artery) 97.7 ??F (36.5 ??C) Heart Rate??(Peripheral) 93 Heart Rate??(Monitored) 95 Respiratory Rate?? 17 Blood Pressure?? 162/93?? Height?? .39 in (1.000 cm) Weight??(Estimated) 257.98 lb (117.00 kg) Allergies No Known Medication Allergies What to Do Next You Need to Schedule the Following Appointments Follow Up with??Follow up with primary care provider When:??Within 3 to 5 days You were treated today on an emergency [...] Much When Why Instructions Next Dose New omeprazole (omeprazole 40 mg oral delayed releasecapsule) 1 Capsules Oral (given by mouth) Every day Gastritis Pickup at [facility] Unchanged atorvastatin Unchanged citalopram Unchanged clopidogrel Unchanged dulaglutide (Trulicity Pen) Unchanged gabapentin Unchanged insulin lispro (HumaLOG) Unchanged lisinopril Pharmacy Information [facility]: [address], [place] [phone] Education Materials Gastritis, Adult Gastritis is inflammation of the stomach. There are two kinds of gastritis: ? Acute gastritis. This kind develops suddenly. ? Chronic gastritis. This kind is much more common and lasts for a long time. Gastritis happens when the lining of the stomach becomes weak or gets damaged. Without treatment, gastritis can lead to stomach bleeding and ulcers. What are the causes? This condition may be caused by: ? An infection. ? Drinking too much alcohol. ? Certain medicines. These include steroids, antibiotics, and some ofkj-uba-tgeyoja medicines, such as aspirin or ibuprofen. ? Having too much acid in the stomach. ? A disease of the intestines or stomach. ? Stress. ? An allergic reaction. ? Crohn's disease. ? Some cancer treatments (radiation). Sometimes the cause of this condition is not known. What are the signs or symptoms? Symptoms of this condition include: ? Pain or a burning sensation in the upper abdomen. ? Nausea. ? Vomiting. ? An uncomfortable feeling of fullness after eating. ? Weight loss. ? Bad breath. ? Blood in your vomit or stools. In some cases, there are no symptoms. How is this diagnosed? This condition may be diagnosed with: ? Your medical history and a description of your symptoms. ? A physical exam. ? Tests. These can include: ? Blood tests. ? Stool tests. ? A test in which a thin, flexible instrument with a light and a camera is passed down the esophagus and into the stomach (upper endoscopy). ? A test in which a sample of tissue is taken for testing (biopsy). How is this treated? This condition may be treated with medicines. The medicines that are used vary depending on the cause of the gastritis: ? If the condition is caused by a bacterial infection, you may be given antibiotic medicines. ? If the condition is caused by too much acid in the stomach, you may be given medicines called H2 blockers, proton pump inhibitors, or antacids. Treatment may also involve stopping the use of certain medicines, such as aspirin, ibuprofen, or other NSAIDs. Follow these instructions at home: Medicines ? Take iluq-gab-qhnbivh and prescription medicines only as told by your health care provider. ? If you were prescribed an antibiotic medicine, take it as told by your health care provider. Do notstop taking the antibiotic even if you start to feel better. Eating and drinking ? Eat small, frequent meals instead of large meals. ? Avoid foods and drinks that make your symptoms worse. ? Drink enough fluid to keep your urine pale yellow. Alcohol use ? Do not drink alcohol if: ? Your health care provider tells you not to drink. ? You are , may be , or are planning to become . ? If you drink alcohol: ? Limit your use to: ? 0???1 drink a day for women. ? 0???2 drinks a day for men. ? Be aware of how much alcohol is in your drink. In the [place] one drink equals one 12 oz bottle of beer (355 mL), one 5 oz glass of wine (148 mL), or one 1?? oz glass of hard liquor (44 mL). General instructions ? Talk with your health care provider about ways to manage stress, such as getting regular exercise or practicing deep breathing, meditation, or yoga. ? Do not use any products that contain nicotine or tobacco, such as cigarettes and e-cigarettes. If you need help quitting, ask your health care provider. ? Keep all follow-up visits as told by your health care provider. This is important. Contact a health care provider if: ? Your symptoms get worse. ? Your symptoms return after treatment. Get help right away if: ? You vomit blood or material that looks like coffee grounds. ? You have black or dark red stools. ? You are unable to keep fluids down. ? Your abdominal pain gets worse. ? You have a fever. ? You do not feel better after one week. Summary ? Gastritis is inflammation of the lining of the stomach that can occur suddenly (acute) or develop slowly over time (chronic). ? This condition is diagnosed with a medical history, a physical exam, or tests. ? This condition may be treated with medicines to treat infection or medicines to reduce the amount of acid in your stomach. ? Follow your health care provider's instructions about taking medicines, making changes to your diet, and knowing when to call for help. This information is not intended to replace advice given to you by your health care provider. Make sure you discuss any questions you have with your health care provider. Document Revised: 06/26/2018 Document Reviewed: 06/26/2018 [employer] Patient Education ?? 2021 [employer] Gastritis, Adult Gastritis is inflammation of the stomach. There are two kinds of gastritis: ? Acute gastritis. This kind develops suddenly. ? Chronic gastritis. This kind is much more common and lasts for a long time. Gastritis happens when the lining of the stomach becomes weak or gets damaged. Without treatment, gastritis can lead to stomach bleeding and ulcers. What are the causes? This condition may be caused by: ? An infection. ? Drinking too much alcohol. ? Certain medicines. These include steroids, antibiotics, and some zcsd-cvq-gehozhp medicines, such as aspirin or ibuprofen. ? Having too much acid in the stomach. ? A disease of the intestines or stomach. ? Stress. ? An allergic reaction. ? Crohn's disease. ? Some cancer treatments (radiation). Sometimes the cause of this condition is not known. What are the signs or symptoms? Symptoms of this condition include: ? Pain or a burning sensation in the upper abdomen. ? Nausea. ? Vomiting. ? An uncomfortable feeling of fullness after eating. ? Weight loss. ? Bad breath. ? Blood in your vomit or stools. In some cases, there are no symptoms. How is this diagnosed? This condition may be diagnosed with: ? Your medical history and a description of your symptoms. ? A physical exam. ? Tests. These can include: ? Blood tests. ? Stool tests. ? A test in which a thin, flexible instrument with a light and a camera is passed down the esophagus and into the stomach (upper endoscopy). ? A test in which a sample of tissue is taken for testing (biopsy). How is this treated? This condition may be treated with medicines. The medicines that are used vary depending on the cause of the gastritis: ? If the condition is caused by a bacterial infection, you may be given antibiotic medicines. ? If the condition is caused by too much acid in the stomach, you may be given medicines called H2 blockers, proton pump inhibitors, or antacids. Treatment may also involve stopping the use of certain medicines, such as aspirin, ibuprofen, or other NSAIDs. Follow these instructions at home: Medicines ? Take eiww-ymm-qyrzpfl and prescription medicines only as told by your health care provider. ? If you were prescribed an antibiotic medicine, take it as told by your health care provider. Do notstop taking the antibiotic even if you start to feel better. Eating and drinking ? Eat small, frequent meals instead of large meals. ? Avoid foods and drinks that make your symptoms worse. ? Drink enough fluid to keep your urine pale yellow. Alcohol use ? Do not drink alcohol if: ? Your health care provider tells you not to drink. ? You are , may be , or are planning to become . ? If you drink alcohol: ? Limit your use to: ? 0???1 drink a day for women. ? 0???2 drinks a day for men. ? Be aware of how much alcohol is in your drink. In the [place] one drink equals one 12 oz bottle of beer (355 mL), one 5 oz glass of wine (148 mL), or one 1?? oz glass of hard liquor (44 mL). General instructions ? Talk with your health care provider about ways to manage stress, such as getting regular exercise or practicing deep breathing, meditation, or yoga. ? Do not use any products that contain nicotine or tobacco, such as cigarettes and e-cigarettes. If you need help quitting, ask your health care provider. ? Keep all follow-up visits as told by your health care provider. This is important. Contact a health care provider if: ? Your symptoms get worse. ? Your symptoms return after treatment. Get help right away if: ? You vomit blood or material that looks like coffee grounds. ? You have black or dark red stools. ? You are unable to keep fluids down. ? Your abdominal pain gets worse. ? You have a fever. ? You do not feel better after one week. Summary ? Gastritis is inflammation of the lining of the stomach that can occur suddenly (acute) or develop slowly over time (chronic). ? This condition is diagnosed with a medical history, a physical exam, or tests. ? This condition may be treated with medicines to treat infection or medicines to reduce the amount of acid in your stomach. ? Follow your health care provider's instructions about taking medicines, making changes to your diet, and knowing when to call for help. This information is not intended to replace advice given to you by your health care provider. Make sure you discuss any questions you have with your health care provider. Document Revised: 06/26/2018 Document Reviewed: 06/26/2018 [employer] Patient Education ?? 2021 [employer]. Tests Performed Radiology XR Chest 2 Views 01/05/2022 15:40 EST Medications and Immunizations Administered Given Sodium Chloride 0.9%, 1000 mL, IV Bolus Al hydroxide/Mg hydroxide/simethicone, 30 mL, Oral Lidocaine Viscous, 15 mL, Oral Lab Test Name Test Result Date/Time WBC 10.2 K/mcL 01/05/2022 15:00 EST RBC 5.70 Million/mcL 01/05/2022 15:00 EST Hgb 11.8 g/dL 01/05/2022 15:00 EST Hct 39.3 % 01/05/2022 15:00 EST MCV 68.9 fL 01/05/2022 15:00 EST MCH 20.7 pg 01/05/2022 15:00 EST MCHC 30.0 g/dL 01/05/2022 15:00 EST RDW-CV 18.0 % 01/05/2022 15:00 EST Platelets 257 K/mcL 01/05/2022 15:00 EST MPV 11.9 fL 01/05/2022 15:00 EST Neutro Auto 71.6 % 01/05/2022 15:00 EST Lymph Auto 17.3 % 01/05/2022 15:00 EST [place] Auto 7.1 % 01/05/2022 15:00 EST Eos, Auto 2.60 % 01/05/2022 15:00 EST Basophil Auto 1.0 % 01/05/2022 15:00 EST Imm Gran Auto 0.4 % 01/05/2022 15:00 EST NRBC Auto 0 01/05/2022 15:00 EST Neutro Absolute 7.3 K/mcL 01/05/2022 15:00 EST Lymph Absolute 1.8 K/mcL 01/05/2022 15:00 EST [place] Absolute 0.7 K/mcL 01/05/2022 15:00 EST Eos Absolute 0.3 K/mcL 01/05/2022 15:00 EST Baso Absolute 0.1 K/mcL 01/05/2022 15:00 EST Imm Gran Absolute 0.04 01/05/2022 15:00 EST NRBC Absolute 0 01/05/2022 15:00 EST RBC Morph Abnormal 01/05/2022 15:00 EST Hypochromia 2+ 01/05/2022 15:00 EST Microcyte 2+ 01/05/2022 15:00 EST Plt Estimation Normal 01/05/2022 15:00 EST Plt Large Few 01/05/2022 15:00 EST D Dimer, (Quant.) 353 ng/mL 01/05/2022 15:00 EST Sodium Level 137 mmol/L 01/05/2022 15:00 EST Potassium Level 4.2 mmol/L 01/05/2022 15:00 EST Chloride Level 100 mmol/L 01/05/2022 15:00 EST CO2 26 mmol/L 01/05/2022 15:00 EST Alk Phos 62 IntlUnit/L 01/05/2022 15:00 EST AST 23 IntlUnit/L 01/05/2022 15:00 EST ALT 27 IntlUnit/L 01/05/2022 15:00 EST BUN 31 mg/dL 01/05/2022 15:00 EST Glucose Level 185 mg/dL 01/05/2022 15:00 EST Creatinine Level 1.65 mg/dL 01/05/2022 15:00 EST BUN/Creat Ratio 18.8 01/05/2022 15:00 EST eGFR AA 52 01/05/2022 15:00 EST eGFR Non-AA 52 01/05/2022 15:00 EST Calcium Level 9.0 mg/dL 01/05/2022 15:00 EST Protein Total 6.9 g/dL 01/05/2022 15:00 EST Albumin Level 3.5 g/dL 01/05/2022 15:00 EST Globulin 3.4 01/05/2022 15:00 EST A/G Ratio 1.0 01/05/2022 15:00 EST Bilirubin Total 0.3 mg/dL 01/05/2022 15:00 EST Anion Gap 11.0 01/05/2022 15:00 EST Osmolality 285 mOsm/kg 01/05/2022 15:00 EST Troponin-I <0.01 ng/mL 01/05/2022 15:00 EST Patient/Grid Caster Signature Patient Name:SHOSHANA SALGADO I have received this information and my questions have been answered. Patient/Grid Caster Name: Patient/Grid Caster Signature: Relationship to Patient: Witness Name/Signature: Date: Electronically Signed on: 01/05/2022 17:35 ESTSigned by:AL XR Chest 2 Views * Vahe Espinoza MD: VERIFY, VERIFY Event Display: Report EXAM DESCRIPTION: XR Chest 2 Views 01/05/2022 INDICATION: CHEST PAIN COMPARISON: 02/16/2021 FINDINGS: Clear lungs with no focal infiltrate or pulmonary edema. Normal cardiomediastinal contour. Normal pleural margins with no pleural effusion or pneumothorax. Spondylotic changes of the dorsal spine. IMPRESSION: No active chest disease. JOB #: [id number] Final Signed by: Vahe Espinoza MD Signed (Electronic Signature): 01/05/2022 3:38 pm
--- OUTSIDE RECORDS SUMMARY | 2024-01-04 13:06 | XMS_ITS | Encounter Summary ---
Author Organization [facility] Address [address] [place] [address] Care Team Providers Care Shed Hand Name Role Phone Unavailable Primary Care Provider Unavailabl e Encounter Details Date Type Department Care Team (Late st Contact Info) Description 11/16/2021 Lab Requisition [facility] Pathology & Laboratory Medicine - [address] [address] Outr Resulting Lab, Provider Social History Tobacco [...] Procedure Name Priority Date/Time Associated Diagnosis Comments QUANTIFERON MITOGEN (PERFORMABLE) Today 11/15/2021 16:38 EDT QUANTIFERON TB2 (PERFORMABLE) Today 11/15/2021 16:38 EDT QUANTIFERON TB1 (PERFORMABLE) Today 11/15/2021 16:38 EDT QUANTIFERON NIL (PERFORMABLE) Today 11/15/2021 16:38 EDT QUANTIFERON INTERPRETATION (PERFORMABLE) Today 11/15/2021 16:38 EDT QUANTIFERON TB GOLD PLUS Routine 11/15/2021 16:38 EDT documented in this encounter Results * QUANTIFERON INTERPRETATION (PERFORMABLE) (11/15/2021 16:38 EDT) Quantiferon Interpretation Negative Negative 11/17/2021 11:39 EDT [facility] Comment:No interferon-gamma response to M. tuberculosis antigens was detected. ??Infection with M. tuberculosis is unlikely. A single negative result does not exclude infection with M. tuberculosis. ??In patients at high risk for M. tuberculosis infection, a second test should be considered. TB1 Ag minus Nil 0.00 IU/ml 11/18/19 11:39 EDT [facility] TB2 Ag minus Nil 0.00 IU/mL 11/18/19 11:39 EDT [facility] Blood VENOUS BLOOD / Unknown 11/15/2021 16:38 EDT 11/17/2021 11:27 EDT Narrative [facility] - 11/17/2021 11:39 EDT Results were obtained with the [employer] QuantiFERON-TB Gold Plus CLIA. New platform in use 10/28/2020 us Provider Outr Resulting Lab IMMUNOLOGY AND SEROL OGY ORDERABLES Final Result Performing Organization Address [facility] Co de Phone Number [facility] [address] [place] [id number] * QUANTIFERON MITOGEN (PERFORMABLE) (11/15/2021 16:38 EDT) Blood VENOUS BLOOD / Unknown 11/15/2021 16:38 EDT 11/16/2021 17:26 EDT us Provider Outr Resulting Lab IMMUNOLOGY AND SEROL OGY ORDERABLES Final Result Performing Organization Address [facility] Co de Phone Number [facility] [address] [place] [phone] * QUANTIFERON TB2 (PERFORMABLE) (11/15/2021 16:38 EDT) Blood VENOUS BLOOD / Unknown 11/15/2021 16:38 EDT 11/16/2021 17:26 EDT us Provider Outr Resulting Lab IMMUNOLOGY AND SEROL OGY ORDERABLES Final Result Performing Organization Address [facility] Co de Phone Number [facility] [address] [place] [phone] * QUANTIFERON TB1 (PERFORMABLE) (11/15/2021 16:38 EDT) Blood VENOUS BLOOD / Unknown 11/15/2021 16:38 EDT 11/16/2021 17:26 EDT us Provider Outr Resulting Lab IMMUNOLOGY AND SEROL OGY ORDERABLES Final Result Performing Organization Address [facility] Co de Phone Number [facility] [address] [place] [address] * QUANTIFERON NIL (PERFORMABLE) (11/15/2021 16:38 EDT) Blood VENOUS BLOOD / Unknown 11/15/2021 16:38 EDT 11/16/2021 17:25 EDT us Provider Outr Resulting Lab IMMUNOLOGY AND SEROL OGY ORDERABLES Final Result Performing Organization Address [facility] Co de Phone Number [facility] [address] [place] [address] documented in this encounter Visit Diagnoses Not on filedocumented in this encounter
--- OUTSIDE RECORDS SUMMARY | 2024-01-04 13:06 | XMS_ITS | Continuity of Care Document ---
Author Organization [facility] Address [address] [place] [address] Care Team Providers Care Insurance Account Executive Name Role Phone Bandar Hahn Primary Care Physician [facility] Date(s[facility] 06/22/23 - 06/22/23 [facility] [address] [place] [address] Discharge Disposition: Home Allergies, Adverse Reactions, Alerts No Known Medication Allergies Assessment and Plan Future Appointments Medications aspirin 81 mg oral capsule 81 mg = 1 cap, Oral, Daily, do not exceed 48 capsules in 24 hours, # 30 cap, 0 Refill(s) Start Date: 06/08/23 Status: Ordered carvedilol 0 Refill(s) Start Date: 06/22/23 Status: Ordered citalopram 10 mg oral tablet 10 mg = 1 tab, Oral, Daily, # 90 tab, 0 Refill(s) Start Date: 06/08/23 Status: Ordered Farxiga 10 mg oral tablet 10 mg = 1 tab, Oral, Daily, # 30 tab, 0 Refill(s) Start Date: 06/08/23 Status: Ordered gabapentin 300 mg oral capsule 300 mg = 1 cap, Oral, BID, # 60 cap, 0 Refill(s) Start Date: 06/08/23 Status: Ordered insulin lispro 0 Refill(s) Start Date: 06/08/23 Status: Ordered Levemir 0 Refill(s) Start Date: 06/08/23 Status: Ordered lidocaine 2% 0 Refill(s) Start Date: 06/08/23 Status: Ordered lisinopril 10 mg oral tablet 10 mg = 1 tab, Oral, Daily, # 30 tab, 0 Refill(s) Start Date: 06/08/23 Status: Ordered Mounjaro 2.5 mg/0.5 mL subcutaneous solution 2.5 mg =, Subcutaneous, every week, rotate injection sites, # 4 EA, 0 Refill(s) Start Date: 06/08/23 Status: Ordered zolpidem 5 mg oral tablet See Instructions, take 1-2 PO night of sleep study if needed, # 2 tab, 0 Refill(s), Pharmacy: [id number], 178, cm, 06/22/23 12:39:00 EDT, Height, 122.24, kg, 06/22/23 12:43:00 EDT, Weight Dosing Start Date: 06/22/23 Status: Ordered Problem List Condition Confirmation Course Effective Dates Status H ealth Status Informant Atherosclerosis Confirmed Active Arthritis Confirmed Active 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 ED (erectile dysfunction) Confirmed Active Essential hypertension Confirmed Active GERD (gastroesophageal reflux disease) Confirmed Active History of nutritional disorder Confirmed Active Hearing loss of left ear Confirmed Active Hyperglycemia Confirmed Active HLD (hyperlipidemia) Confirmed Active Iron deficiency anemia Confirmed Active Lateral epicondylitis Confirmed Active Neuropathy due to type 2 diabetes mellitus Confirmed Active SWAPNIL (obstructive sleep apnea) Confirmed Active Depression, major, recurrent Confirmed Active Renal insufficiency Confirmed Active Restless leg syndrome Confirmed Active Retinopathy Confirmed Active Loud snoring Confirmed Active Social History Social History Type Response Tobacco Former tobacco user Tobacco Use:. Sex Male Patient Care team information Care Team Personnel Name: Bandar Hahn MD Position: No Access Member Role: Primary Care Physician Address: Address: [address] [place] [address]- Care Team Related Persons Name: GRETTA SALGADO Address: Home [address] [place] [phone] Name: CHRIS SALGADO
--- OUTSIDE RECORDS SUMMARY | 2024-01-04 13:06 | XMS_ITS | Continuity of Care Document ---
Author Organization [facility] Ambulatory Clinics Address [address] [place] [address] Care Team Providers Care Wind Technician Name Role Phone MARIBETH BARKER MD Primary Care Physician Encounter [facility] NBR [id number] Date(s): 10/18/23 - 10/18/23 [facility] Ambulatory Clinics [address], [place] [address] Encounter Diagnosis Rash(Discharge Diagnosis) - 10/18/23 Hematoma of abdominal wall(Discharge Diagnosis) - 10/18/23 Rash and other nonspecific skin eruption(Final) - Contusion of abdominal wall, initial encounter(Final) - Discharge Disposition: Home or Self Care Attending Physician: Amanda Fuentes PA-C Allergies, Adverse Reactions, Alerts Substance Criticality Severity Reaction Reaction Severity Status melatonin Unable to assess criticality Unknown Restless legs syndrome Active Diphendramine HCL Unable to assess criticality Unknown Hyperactivity level Active Assessment and Plan Extracted from: Title:Office Visit Note Author:Amanda Fuentes PA-C Date:10/18/23 1.??Rash??R21 Ordered: cephalexin 500 mg oral capsule, 500 mg = 1 cap, Oral, QID, # 20 cap, 0 Refill(s), Pharmacy: [id number], 177.8, cm, 09/11/23 11:32:00 EDT, Height, 121, kg, 09/11/23 11:39:00 EDT, Weight Dosing ?? 2.??Hematoma of abdominal wall??S30.1XXA Ordered: cephalexin 500 mg oral capsule, 500 mg = 1 cap, Oral, QID, # 20 cap, 0 Refill(s), Pharmacy: [facility], 177.8, cm, 09/11/23 11:32:00 EDT, Height, 121, kg, 09/11/23 11:39:00 EDT, Weight Dosing ?? 47-year-old diabetic male comes into the urgent care with concerns for??a rash on his left lower abdomen.?? And injected his insulin there today. ??And has had rashes that size that usually resolved in a few days. ??But with abundance of precaution there is concern about possibility of infection as the patient is a diabetic and is due for open heart surgery. ??Therefore we will start him on a course of Keflex. ??Overall does not endorse any pain. ??Understands to monitor??the size of the rash as well as his symptoms??and??follow-up in the emergency department with any additional concerns as they have more advanced imaging as well as laboratory studies.?? Patient is comfortable with this.?? Understands the importance of monitoring his symptoms. Medications aspirin 81 mg oral tablet, chewable [...] QID, # 20 cap, 0 Refill(s), Pharmacy: [facility], 177.8, cm, 09/11/23 11:32:00 EDT, [...] every evening Start Date: 03/11/22 Status: Ordered prasugrel 10 mg oral tablet 10 mg = 1 tab, Oral, Daily, # 30 tab, 0 Refill(s) Start Date: 09/11/23 Status: Ordered Problem List Condition Confirmation Course [...] recent to oldest [Reference Range]: 1 Temperature Oral [35.8-37.3 Deg C] 36.4 Deg C (10/18/23 6:45 PM) Peripheral Pulse Rate [60-100 bpm] 72 bp m (10/18/23 6:45 PM) Blood Pressure [90-140/60-90 mmHg] 150/7 1mmHg *HI* (10/18/23 6:45 PM) Mean Arterial Pressure, Cuff [65-140 mmH g] 97 mmHg (10/18/23 6:45 PM) Social History Social History Type Response Tobacco Never tobacco user T obacco Use:. Sex Sex Representation Male (finding) Hospital Discharge Instructions Patient Education 10/18/2023 18:08:13 Hematoma Hematoma A hematoma is a collection of blood under the skin, in an organ, in a body space, in a joint space,or in other tissue. The blood can thicken (clot) to form a lump that you can see and feel. The lumpis often firm and may become sore and tender. Most hematomas get better in a few days to weeks. However, some hematomas may be serious and require medical care. Hematomas can range from very small tovery large. What are the causes? This condition is caused by: ??? A blunt or penetrating injury. ??? Leakage from a blood vessel under the skin. ??? Some medical procedures, including surgeries, such as oral surgery, face lifts, and surgeries on the joints. ??? Some medical conditions that cause bleeding or bruising. There may be multiple hematomas that appear in different areas of the body. What increases the risk? You are more likely to develop this condition if: ??? You are an older adult. ??? You use blood thinners. ??? You regularly use NSAIDs, such as ibuprofen, for pain. ??? You play contact sports. What are the signs or symptoms? Symptoms of this condition depend on where the hematoma is located. Common symptoms of a hematoma that is under the skin include: ??? A firm lump on the body. ??? Pain and tenderness in the area. ??? Bruising. Blue, dark blue, purple-red, or yellowish skin (discoloration) may appear at the siteof the hematoma if the hematoma is close to the surface of the skin. Common symptoms of a hematoma that is deep in the tissues or body spaces may be less obvious. They include: ??? A collection of blood in the stomach (intra-abdominal hematoma). This may cause pain in the abdomen, weakness, fainting, and shortness of breath. ??? A collection of blood in the head (intracranial hematoma). This may cause a headache or symptoms such as weakness, trouble speaking or understanding, or a change in consciousness. How is this diagnosed? This condition is diagnosed based on: ??? Your medical history. ??? A physical exam. ??? Imaging tests, such as an ultrasound or CT scan. These may be needed if your health care provider suspects a hematoma in deeper tissues or body spaces. ??? Blood tests. These may be needed if your health care provider believes that the hematoma is caused by a medical condition. How is this treated? Treatment for this condition depends on the cause, size, and location of the hematoma. Treatment may include: ??? Doing nothing. The majority of hematomas do not need treatment as many of them go away on theirown. ??? Surgery or close monitoring. This may be needed for large hematomas or hematomas that affect vital organs. ??? Medicines. Medicines may be given if there is an underlying medical cause for the hematoma. Follow these instructions at home: Managing pain, stiffness, and swelling ??? If directed, put ice on the injured area. To do this: ??? Put ice in a plastic bag. ??? Place a towel between your skin and the bag. ??? Leave the ice on for 20 minutes, 2???3 times a day for the first couple of days. ??? If your skin turns bright red, remove the ice right away to prevent skin damage. The risk of skin damage is higher if you cannot feel pain, heat, or cold. ??? If directed, apply heat to the affected area as often as told by your health care provider. Usethe heat source that your health care provider recommends, such as a moist heat pack or a heating pad. ??? Place a towel between your skin and the heat source. ??? Leave the heat on for 20???30 minutes. ??? If your skin turns bright red, remove the heat right away to prevent bernstein. The risk of bernstein is higher if you cannot feel pain, heat, or cold. ??? Raise (elevate) the injured area above the level of your heart while you are sitting or lying down. ??? If directed, wrap the affected area with an elastic bandage. The bandage applies pressure (compression) to the area, which may help to reduce swelling and promote healing. Do not wrap the bandagetoo tightly around the affected area. ??? If your hematoma is on a leg or foot (lower extremity) and is painful, your health care provider may recommend crutches. Use them as told by your health care provider. General instructions ??? Take oeaz-dit-lccpmgg and prescription medicines only as told by your health care provider. ??? Rest the injured area as directed by your health care provider. ??? Keep all follow-up visits. Your health care provider may want to see how your hematoma is progressing with treatment. Contact a health care provider if: ??? You have a fever. ??? The swelling or discoloration gets worse. ??? You develop more hematomas. ??? Your pain is worse or your pain is not controlled with medicine. ??? Your skin over the hematoma breaks or starts bleeding. Get help right away if: ??? Your hematoma is in your chest or abdomen and you have weakness, shortness of breath, or a change in consciousness. ??? You have a hematoma on your scalp that is caused by a fall or injury, and you also have: ??? A headache that gets worse. ??? Trouble speaking or understanding speech. ??? Weakness. ??? A change in alertness or consciousness. These symptoms may be an emergency. Get help right away. Call 911. ??? Do not wait to see if the symptoms will go away. ??? Do not drive yourself to the hospital. This information is not intended to replace advice given to you by your health care provider. Make sure you discuss any questions you have with your health care provider. Document Revised: 08/01/2022 Document Reviewed: 08/01/2022 [employer] Patient Education ?? 2022 [employer] 10/18/2023 18:08:09 Rash, Adult Rash, Adult A rash is a change in the color of your skin. A rash can also change the way your skin feels. Thereare many different conditions and factors that can cause a rash. Some rashes may disappear after a few days, but some may last for a few weeks. Common causes of rashes include: ??? Viral infections, such as: ??? Colds. ??? Measles. ??? Hand, foot, and mouth disease. ??? Bacterial infections, such as: ??? Scarlet fever. ??? Impetigo. ??? Fungal infections, such as Cinthya. ??? Allergic reactions to food, medicines, or skin care products. Follow these instructions at home: The goal of treatment is to stop the itching and keep the rash from spreading. Pay attention to anychanges in your symptoms. Follow these instructions to help with your condition: Medicine Take or apply mxjx-ydz-eyjgtfm and prescription medicines only as told by your health care provider. These may include: ??? Corticosteroid creams to treat red or swollen skin. ??? Anti-itch lotions. ??? Oral allergy medicines (antihistamines). ??? Oral corticosteroids for severe symptoms. Skin care ??? Apply cool compresses to the affected areas. ??? Do not scratch or rub your skin. ??? Avoid covering the rash. Make sure the rash is exposed to air as much as possible. Managing itching and discomfort ??? Avoid hot showers or baths, which can make itching worse. A cold shower may help. ??? Try taking a bath with: ??? Epsom salts. Follow terrazzo journeyman instructions on the packaging. You can get these at your localpharmacy or grocery store. ??? Baking soda. Pour a small amount into the bath as told by your health care provider. ??? Colloidal oatmeal. Follow terrazzo journeyman instructions on the packaging. You can get this at your local pharmacy or grocery store. ??? Try applying baking soda paste to your skin. Stir water into baking soda until it reaches a paste-like consistency. ??? Try applying calamine lotion. This is an avhm-aaf-sbnujfg lotion that helps to relieve itchiness. ??? Keep cool and out of the sun. Sweating and being hot can make itching worse. General instructions ??? Rest as needed. ??? Drink enough fluid to keep your urine pale yellow. ??? Wear loose-fitting clothing. ??? Avoid scented soaps, detergents, and perfumes. Use gentle soaps, detergents, perfumes, and other cosmetic products. ??? Avoid any substance that causes your rash. Keep a journal to help track what causes your rash. Write down: ??? What you eat. ??? What cosmetic products you use. ??? What you drink. ??? What you wear. This includes jewelry. ??? Keep all follow-up visits as told by your health care provider. This is important. Contact a health care provider if: ??? You sweat at night. ??? You lose weight. ??? You urinate more than normal. ??? You urinate less than normal, or you notice that your urine is a darker color than usual. ??? You feel weak. ??? You vomit. ??? Your skin or the whites of your eyes look yellow (jaundice). ??? Your skin: ??? Tingles. ??? Is numb. ??? Your rash: ??? Does not go away after several days. ??? Gets worse. ??? You are: ??? Unusually thirsty. ??? More tired than normal. ??? You have: ??? New symptoms. ??? Pain in your abdomen. ??? A fever. ??? Diarrhea. Get help right away if you: ??? Have a fever and your symptoms suddenly get worse. ??? Develop confusion. ??? Have a severe headache or a stiff neck. ??? Have severe joint pains or stiffness. ??? Have a seizure. ??? Develop a rash that covers all or most of your body. The rash may or may not be painful. ??? Develop blisters that: ??? Are on top of the rash. ??? Grow larger or grow together. ??? Are painful. ??? Are inside your nose or mouth. ??? Develop a rash that: ??? Looks like purple pinprick-sized spots all over your body. ??? Has a bull's eye or looks like a target. ??? Is not related to sun exposure, is red and painful, and causes your skin to peel. Summary ??? A rash is a change in the color of your skin. Some rashes disappear after a few days, but some may last for a few weeks. ??? The goal of treatment is to stop the itching and keep the rash from spreading. ??? Take or apply iqpd-avj-uforcjy and prescription medicines only as told by your health care provider. ??? Contact a health care provider if you have new or worsening symptoms. ??? Keep all follow-up visits as told by your health care provider. This is important. This information is not intended to replace advice given to you by your health care provider. Make sure you discuss any questions you have with your health care provider. Document Revised: 08/09/2022 Document Reviewed: 11/18/2021 [employer] Patient Education ?? 2022 [employer] Physician Outpatient Note * Amanda Fuentes PA-C: PERFORM Event Display: Office Clinic Note Physician Authored Date: [id number] SHOSHANA SALGADO :1975 Age:47 years Sex:Male Visit Date:10/18/2023 Primary Care Physician: MARIBETH BARKER MD Chief Complaint Pt states noticed a rash on his lower left abd. Pt has diabetes and didn't notice it. Doesn't hurt or itch. Last took insulin at 13:00 today in that area. History of Present Illness This is a 47-year-old diabetic who comes into the urgent care with concerns for a rash on his left lower abdomen. ??Patient states that??overall he is feeling fine. ??He gives his self diabetic injections usually in his abdomen. ??And today around 1 PM he gave himself 1??in his left lower abdomen. ??When he went to relax today??his noticed the rash on his abdomen. ??He states he has had these types of rashes before from when he has given himself injections. ??He is on a number of blood thinners. ??Denies any new blood thinners as he is due to have open heart surgery in the near future.??He states the area is a little tender but overall he feels fine. ??And he states usually he looks at the area before he injects himself but he was somewhat rushing??and did not??look at it at the time. ??But had not noticed it until his?? had mentioned something.?? Comes in for an evaluation. Review of Systems GENERAL: No Fever, No Fatigue ENT: No Ear Pain, No throat Pain RESPIRATORY: No Shortness of Breath, No Cough CARDIOVASCULAR: No Chest Pain Physical Exam Vitals & Measurements T:??36.4?C ??(Oral)?? HR:??72??(Peripheral)?? BP:??150/71?? SpO2:??99%?? Pain Score:??0?? General: No Obvious Pain, No Acute Distress Head: No Obvious Trauma ENT: Swallowing Normally Respiratory: Speaking full sentences Abdomen:??Some slight tenderness in the area that appears almost the size of the hand??on the lowerabdomen where patient injects his insulin. ??No obvious fluctuance or erythema, but it almost appears as though there is some petechiae and maybe even possibly a hematoma.?? No other swelling.?? No other masses, nontender in all other areas of the abdomen. Neurological: Alert and Oriented Assessment/Plan 1.??Rash??R21 Ordered: cephalexin 500 mg oral capsule, 500 mg = 1 cap, Oral, QID, # 20 cap, 0 Refill(s), Pharmacy: [facility], 177.8, cm, 09/11/23 11:32:00 EDT, Height, 121, kg, 09/11/23 11:39:00 EDT, Weight Dosing ?? 2.??Hematoma of abdominal wall??S30.1XXA Ordered: cephalexin 500 mg oral capsule, 500 mg = 1 cap, Oral, QID, # 20 cap, 0 Refill(s), Pharmacy: [facility], 177.8, cm, 09/11/23 11:32:00 EDT, Height, 121, kg, 09/11/23 11:39:00 EDT, Weight Dosing ?? 47-year-old diabetic male comes into the urgent care with concerns for??a rash on his left lower abdomen.?? And injected his insulin there today. ??And has had rashes that size that usually resolved in a few days. ??But with abundance of precaution there is concern about possibility of infection asthe patient is a diabetic and is due for open heart surgery. ??Therefore we will start him on a course of Keflex. ??Overall does not endorse any pain. ??Understands to monitor??the size of the rash as well as his symptoms??and??follow-up in the emergency department with any additional concerns as they have more advanced imaging as well as laboratory studies.?? Patient is comfortable with this.?? U nderstands the importance of monitoring his symptoms. Patient Instructions You were seen for a rash on your abdomen. ??It is likely related to when you injected yourself withyour insulin.?? Appears that of a hematoma. ??But out of abundance of precaution. ??We will start you on a course of antibiotics. ??Continue to monitor your symptoms especially pain, fever and spreading of the rash??where you should then go to the emergency department for further evaluation as wellas advanced imaging as well as laboratory studies.? Patient Education Hematoma Rash, Adult Problem List/Past Medical History Ongoing Anemia Cholecystitis, chronic Diabetes Heart attack High blood pressure Impairment of balance Sensorineural hearing loss of left ear with normal hearing on right side Sudden sensorineural hearing loss Tinnitus of left ear Historical No qualifying data Procedure/Surgical History ???Stent placement Medications aspirin 81 mg oral tablet, chewable, 81 mg= 1 tab, Chewed, every evening atorvastatin 40 mg oral tablet, 40 mg= 1 tab, Oral, every evening carvedilol 6.25 mg oral tablet, 6.25 mg= 1 tab, Oral, BID cephalexin 500 mg oral capsule, 500 mg= 1 cap, Oral, QID citalopram 10 mg oral tablet, 10 mg= 1 tab, Oral, every evening Farxiga 5 mg oral tablet, 5 mg= 1 tab, Oral, Daily gabapentin 300 mg oral capsule, 600 mg= 2 cap, Oral, every evening Insulin Lispro KwikPen 100 units/mL injectable solution, Subcutaneous, TID(AC) Levemir FlexTouch 100 units/mL subcutaneous solution, 30 units, Subcutaneous, every evening prasugrel 10 mg oral tablet, 10 mg= 1 tab, Oral, Daily Allergies Diphendramine HCL??(Hyperactivity level) melatonin??(Restless legs syndrome) Social History Alcohol Current, Beer, 1-2 times per month Electronic Cigarette/Vaping Electronic Cigarette Use: Never. Home/Environment Lives with Spouse. Living situation: Home/Independent. Substance Use Never Tobacco Never tobacco user Tobacco Use:. Electronically Signed on 10/18/2023 19:22 EDT Amanda Fuentes PA-C Outpatient Summary note * Amanda Fuentes PA-C: PERFORM Event Display: Ambulatory Patient Summary Authored Date: [id number] SHOSHANA SALGADO :1975 Age:47 years Sex:Male Visit Date:10/18/2023 Primary Care Physician: MARIBETH BARKER MD Ambulatory Visit Instructions We would like to thank you for allowing us to assist you with your healthcare needs. The following includes patient education materials and information regarding your injury/illness. Your Next Steps Instructions From Your Care Team You were seen for a rash on your abdomen. ??It is likely related to when you injected yourself withyour insulin.?? Appears that of a hematoma. ??But out of abundance of precaution. ??We will start you on a course of antibiotics. ??Continue to monitor your symptoms especially pain, fever and spreading of the rash??where you should then go to the emergency department for further evaluation as wellas advanced imaging as well as laboratory studies.? Medications What How Much When Why Instructions New cephalexin (cephalexin 500 mg oral capsule) 1 Capsules Oral (given by mouth) 4 times a day Rash Hematoma of abdominal wall Duration: 5 Days Pickup at [facility] Unchanged aspirin (aspirin 81 mg oral [...] (given by mouth) Every day Pharmacy Information [facility]: [address], [place] [phone] Your Summary Your Diagnosis Rash Hematoma of abdominal wall Problems Ongoing - Any problem that you are currently receiving treatment for. Anemia Cholecystitis, chronic Diabetes Heart attack High blood pressure Impairment of balance Sensorineural hearing loss of left ear with normal hearing on right side Sudden sensorineural hearing loss Tinnitus of left ear Your Care Team Attending Physician - Amanda Fuentes PA-C Primary Care Physician - MJ WILLS, MARIBETH Constantino [facility] Vitals Temperature??(Oral) 97.5 ??F (36.4 ??C) Heart Rate??(Peripheral) 72 Blood Pressure?? 150/71?? SpO2?? 99% Allergies Diphendramine HCL??(Hyperactivity level) melatonin??(Restless legs syndrome) Education [employer] Hematoma A hematoma is a collection of blood under the skin, in an organ, in a body space, in a joint space,or in other tissue. The blood can thicken (clot) to form a lump that you can see and feel. The lumpis often firm and may become sore and tender. Most hematomas get better in a few days to weeks. However, some hematomas may be serious and require medical care. Hematomas can range from very small tovery large. What are the causes? This condition is caused by: ? A blunt or penetrating injury. ? Leakage from a blood vessel under the skin. ? Some medical procedures, including surgeries, such as oral surgery, face lifts, and surgeries on the joints. ? Some medical conditions that cause bleeding or bruising. There may be multiple hematomas that appear in different areas of the body. What increases the risk? You are more likely to develop this condition if: ? You are an older adult. ? You use blood thinners. ? You regularly use NSAIDs, such as ibuprofen, for pain. ? You play contact sports. What are the signs or symptoms? Symptoms of this condition depend on where the hematoma is located. Common symptoms of a hematoma that is under the skin include: ? A firm lump on the body. ? Pain and tenderness in the area. ? Bruising. Blue, dark blue, purple-red, or yellowish skin (discoloration) may appear at the site of the hematoma if the hematoma is close to the surface of the skin. Common symptoms of a hematoma that is deep in the tissues or body spaces may be less obvious. They include: ? A collection of blood in the stomach (intra-abdominal hematoma). This may cause pain in the abdomen, weakness, fainting, and shortness of breath. ? A collection of blood in the head (intracranial hematoma). This may cause a headache or symptoms such as weakness, trouble speaking or understanding, or a change in consciousness. How is this diagnosed? This condition is diagnosed based on: ? Your medical history. ? A physical exam. ? Imaging tests, such as an ultrasound or CT scan. These may be needed if your health care provider suspects a hematoma in deeper tissues or body spaces. ? Blood tests. These may be needed if your health care provider believes that the hematoma is caused by a medical condition. How is this treated? Treatment for this condition depends on the cause, size, and location of the hematoma. Treatment may include: ? Doing nothing. The majority of hematomas do not need treatment as many of them go away on their own. ? Surgery or close monitoring. This may be needed for large hematomas or hematomas that affect vital organs. ? Medicines. Medicines may be given if there is an underlying medical cause for the hematoma. Follow these instructions at home: Managing pain, stiffness, and swelling ? If directed, put ice on the injured area. To do this: ? Put ice in a plastic bag. ? Place a towel between your skin and the bag. ? Leave the ice on for 20 minutes, 2???3 times a day for the first couple of days. ? If your skin turns bright red, remove the ice right away to prevent skin damage. The risk of skin damage is higher if you cannot feel pain, heat, or cold. ? If directed, apply heat to the affected area as often as told by your health care provider. Use theheat source that your health care provider recommends, such as a moist heat pack or a heating pad. ? Place a towel between your skin and the heat source. ? Leave the heat on for 20???30 minutes. ? If your skin turns bright red, remove the heat right away to prevent bernstein. The risk of bernstein is higher if you cannot feel pain, heat, or cold. ? Raise (elevate) the injured area above the level of your heart while you are sitting or lying down. ? If directed, wrap the affected area with an elastic bandage. The bandage applies pressure (compression) to the area, which may help to reduce swelling and promote healing. Do not wrap the bandage tootightly around the affected area. ? If your hematoma is on a leg or foot (lower extremity) and is painful, your health care provider may recommend crutches. Use them as told by your health care provider. General instructions ? Take ldnc-wca-vysdyra and prescription medicines only as told by your health care provider. ? Rest the injured area as directed by your health care provider. ? Keep all follow-up visits. Your health care provider may want to see how your hematoma is progressing with treatment. Contact a health care provider if: ? You have a fever. ? The swelling or discoloration gets worse. ? You develop more hematomas. ? Your pain is worse or your pain is not controlled with medicine. ? Your skin over the hematoma breaks or starts bleeding. Get help right away if: ? Your hematoma is in your chest or abdomen and you have weakness, shortness of breath, or a change in consciousness. ? You have a hematoma on your scalp that is caused by a fall or injury, and you also have: ? A headache that gets worse. ? Trouble speaking or understanding speech. ? Weakness. ? A change in alertness or consciousness. These symptoms may be an emergency. Get help right away. Call 911. ? Do not wait to see if the symptoms will go away. ? Do not drive yourself to the hospital. This information is not intended to replace advice given to you by your health care provider. Make sure you discuss any questions you have with your health care provider. Document Revised: 08/01/2022 Document Reviewed: 08/01/2022 [employer] Patient Education ?? 2022 [employer] Rash, Adult A rash is a change in the color of your skin. A rash can also change the way your skin feels. Thereare many different conditions and factors that can cause a rash. Some rashes may disappear after a few days, but some may last for a few weeks. Common causes of rashes include: ? Viral infections, such as: ? Colds. ? Measles. ? Hand, foot, and mouth disease. ? Bacterial infections, such as: ? Scarlet fever. ? Impetigo. ? Fungal infections, such as Cinthya. ? Allergic reactions to food, medicines, or skin care products. Follow these instructions at home: The goal of treatment is to stop the itching and keep the rash from spreading. Pay attention to anychanges in your symptoms. Follow these instructions to help with your condition: Medicine Take or apply brph-gor-uthtjyh and prescription medicines only as told by your health care provider. These may include: ? Corticosteroid creams to treat red or swollen skin. ? Anti-itch lotions. ? Oral allergy medicines (antihistamines). ? Oral corticosteroids for severe symptoms. Skin care ? Apply cool compresses to the affected areas. ? Do not scratch or rub your skin. ? Avoid covering the rash. Make sure the rash is exposed to air as much as possible. Managing itching and discomfort ? Avoid hot showers or baths, which can make itching worse. A cold shower may help. ? Try taking a bath with: ? Epsom salts. Follow terrazzo journeyman instructions on the packaging. You can get these at your local pharmacy or grocery store. ? Baking soda. Pour a small amount into the bath as told by your health care provider. ? Colloidal oatmeal. Follow terrazzo journeyman instructions on the packaging. You can get this at your local pharmacy or grocery store. ? Try applying baking soda paste to your skin. Stir water into baking soda until it reaches a paste-like consistency. ? Try applying calamine lotion. This is an xmzn-fpa-xocrjmc lotion that helps to relieve itchiness. ? Keep cool and out of the sun. Sweating and being hot can make itching worse. General instructions ? Rest as needed. ? Drink enough fluid to keep your urine pale yellow. ? Wear loose-fitting clothing. ? Avoid scented soaps, detergents, and perfumes. Use gentle soaps, detergents, perfumes, and other cosmetic products. ? Avoid any substance that causes your rash. Keep a journal to help track what causes your rash. Write down: ? What you eat. ? What cosmetic products you use. ? What you drink. ? What you wear. This includes jewelry. ? Keep all follow-up visits as told by your health care provider. This is important. Contact a health care provider if: ? You sweat at night. ? You lose weight. ? You urinate more than normal. ? You urinate less than normal, or you notice that your urine is a darker color than usual. ? You feel weak. ? You vomit. ? Your skin or the whites of your eyes look yellow (jaundice). ? Your skin: ? Tingles. ? Is numb. ? Your rash: ? Does not go away after several days. ? Gets worse. ? You are: ? Unusually thirsty. ? More tired than normal. ? You have: ? New symptoms. ? Pain in your abdomen. ? A fever. ? Diarrhea. Get help right away if you: ? Have a fever and your symptoms suddenly get worse. ? Develop confusion. ? Have a severe headache or a stiff neck. ? Have severe joint pains or stiffness. ? Have a seizure. ? Develop a rash that covers all or most of your body. The rash may or may not be painful. ? Develop blisters that: ? Are on top of the rash. ? Grow larger or grow together. ? Are painful. ? Are inside your nose or mouth. ? Develop a rash that: ? Looks like purple pinprick-sized spots all over your body. ? Has a bull's eye or looks like a target. ? Is not related to sun exposure, is red and painful, and causes your skin to peel. Summary ? A rash is a change in the color of your skin. Some rashes disappear after a few days, but some may last for a few weeks. ? The goal of treatment is to stop the itching and keep the rash from spreading. ? Take or apply ntxg-mhh-glubwdu and prescription medicines only as told by your health care provider. ? Contact a health care provider if you have new or worsening symptoms. ? Keep all follow-up visits as told by your health care provider. This is important. This information is not intended to replace advice given to you by your health care provider. Make sure you discuss any questions you have with your health care provider. Document Revised: 08/09/2022 Document Reviewed: 11/18/2021 [employer] Patient Education ?? 2022 [employer] Electronically Signed on: 10/18/2023 19:08 EDTSigned by:NAV Patient Care team information Care Team Personnel Name: MARIBETH BARKER MD Position: No Access Member Role: Primary Care Physician Address: [address] [place] [address]- Care Team Related Persons Name: GRETTA SALGADO Name: GRETTA SALGADO Name: AARTI SALGADO Insurance Providers Guarantor name: SHOSHANA SALGADO Health Plan Information #: 1 Payer: [facility] Member Number: [id number] Policy Number: [id number] Health Plan Information #: 2 Payer: [facility] Member Number: [id number] Policy Number: [id number]
--- OUTSIDE RECORDS SUMMARY | 2024-01-04 13:06 | XMS_ITS | Referral Summary ---
Author Organization [facility] Address [address] [place] [address] Care Team Providers Care Dietetics Director Name Role Phone Unavailable Primary Care Provider Unavailabl e Social History Tobacco Use Types Packs/Day Years Used Date Smoking Tobacco: Never Assessed Sex and Gender Information Value Date Recorded Sex Assigned at Not on file Legal Sex Male 18:12 EST Gender Identity Not on file Sexual Orientation Not on file Plan of Treatment Not on file Insurance [employer]
--- OUTSIDE RECORDS SUMMARY | 2024-01-04 13:06 | XMS_ITS | Clinical Summary ---
Author Organization [facility] Address [address] [place] [address] Care Team Providers Care Customer Support Executive Name Role Phone Unavailable Primary Care Provider Unavailabl e Social History Tobacco Use Types Packs/Day Years Used Date Smoking Tobacco: Never Assessed Sex and Gender Information Value Date Recorded Sex Assigned at Not on file Legal Sex Male 18:12 EST Gender Identity Not on file Sexual Orientation Not on file Plan of Treatment Health Maintenance Due Date Last Done Comments Hepatitis C Screen 1975 Hepatitis B Vaccine (1 of 3 - 19+ 3-dose series) 12/10 COVID-19 Vaccine ( season) 2023 Insurance [employer]
--- OUTSIDE RECORDS SUMMARY | 2024-01-04 13:06 | XMS_ITS | Encounter Summary ---
Author Organization Health system Address [address] [place] [address] Care Team Providers Care Manager Pmo Name Role Phone Unavailable Primary Care Provider Unavailabl e Encounter Details Date Type Department Care Team (Late st Contact Info) Description 07/15/2020 Lab Requisition [facility] Pathology & Laboratory Medicine - [address] [address] Outr Resulting Lab, Provider Social History Tobacco [...] Procedure Name Priority Date/Time Associated Diagnosis Comments RHEUMATOID FACTOR Routine 07/14/2020 14: 56 EDT ANTI NUCLEAR AB (BONITA), IFA Routine 07/14/2020 14:56 EDT documented in this encounter Results * RHEUMATOID FACTOR (07/14/2020 14:56 EDT) Rheumatoid Factor <8.6 <12.0 IU/mL 07/15/2020 16:21 EDT [facility] Blood VENOUS BLOOD / Unknown 07/14/2020 14:56 EDT 07/15/2020 16:02 EDT us Provider Outr Resulting Lab CHEMISTRY & BLOOD GA S ORDERABLES Final Result [facility] [address] [place] [address] * ANTI NUCLEAR AB (BONITA), IFA (07/14/2020 14:56 EDT) BONITA Interpretation Negative Negative 2020 14:35 EDT [facility] Comment:No titer performed, BONITA Screen is negative. Blood VENOUS BLOOD / Unknown 07/14/2020 14:56 EDT 07/15/2020 16:02 EDT Narrative [facility] - 07/16/2020 14:35 EDT Results were obtained with the INOVA NOVA Lite HEp-2 BONITA Kit by indirect immunofluorescence. us Provider Outr Resulting Lab IMMUNOLOGY AND SEROL OGY ORDERABLES Final Result [facility] [address] [place] [address] documented in this encounter Visit Diagnoses Not on filedocumented in this encounter
--- OUTSIDE RECORDS SUMMARY | 2024-01-04 13:06 | XMS_ITS | Continuity of Care Document ---
Author Organization [facility] Address [address] [place] [address] Care Team Providers Care Music Journalist Name Role Phone MARIBETH BARKER MD Primary Care Physician Encounter [facility] [facility]BR [id number] Date(s): 11/30/22 - 11/30/[address] [address] Encounter Diagnosis Pain, dental(Discharge Diagnosis) - 11/30/22 Discharge Disposition: Home or Self Care Attending Physician: Katharina Martin MD Admitting Physician: Katharina Martin MD Allergies, Adverse Reactions, Alerts Substance Reaction Severity Status melatonin Restless legs syndrome Unknown Activ e Diphendramine HCL Hyperactivity level Unknown Act nomi Functional Status 11/30/22 Other exposure to Infectious Disease Non e Medications !-Zofran ODT 4 mg oral tablet, disintegrating 4 mg = 1 tab, Oral, 6 times per day, PRN as needed for nausea/vomiting, # 16 tab, 0 Refill(s), Pharmacy: [id number], 177, cm, 07/08/22 14:39:00 EDT, Height/Length Dosing, 117.93, kg, 07/08/22 14:39:00 EDT, Weight Dosing Start Date: 07/08/22 Status: Ordered amoxicillin 500 mg oral capsule 500 mg = 1 cap, Oral, every 12 hr, # 20 cap, 0 Refill(s), Pharmacy: [id number], 177, cm,07/08/22 14:39:00 EDT, Height/Length Dosing, 117.93, kg, 07/08/22 14:39:00 EDT, Weight Dosing Start Date: 10/04/22 Status: Ordered amoxicillin-clavulanate 875 mg-125 mg oral tablet 1 tab, Oral, every 12 hr, # 20 tab, 0 Refill(s), Pharmacy: [id number], 177, cm, 07/08/2313:39:00 EDT, [...] Temperature Temporal Artery [36-38 Deg C ] 36.0 Deg C (11/30/22 8:07 PM) Peripheral Pulse Rate [60-100 bpm] 101 b pm *HI* (11/30/22 8:07 PM) Respiratory Rate [12-24 br/min] 16 br/mi n (11/30/22 8:07 PM) Blood Pressure [90-140/60-90 mmHg] 173/9 4mmHg *HI* (11/30/22 8:07 PM) Weight Dosing 117.93 kg (11/30/22 8:19 PM) Weight Estimated 117.93 kg (11/30/22 8:07 PM) Height/Length Dosing 177.000 cm (11/30/22 8:19 PM) Height/Length Estimated 177.000 cm (11/30/22 8:07 PM) Social History Social History Type Response Tobacco Former tobacco user Tobacco Use:. 10-15 cigarettes a day per day. 7 year(s). Sex Hospital Discharge Instructions Patient Education 11/30/2022 20:43:02 Dental Pain Dental Pain Dental pain is [...] after getting dental care. Medicines ??? Take sbgl-yiz-fruxiak and prescription medicines only as told by [...] may be mild or severe. ??? Take jvvp-nuk-wfrpaup and prescription medicines only as told by [...] provider. Document Revised: 11/11/2020 Document Reviewed: 11/11/2020 [employer] Patient Education ?? 2022 [employer]. Follow Up Care 11/30/2022 20:07:37 With:Tylenol/Motrin for Pain/Fever Relief Address:Unknown When:1 month With:MARIBETH BARKER MD Address: [address] [place] [address] When:1 month Emergency department Discharge instructions * GLENIS Campbell: PERFORM Event Display: ED Discharge Information Authored Date: [id number] SHOSHANA SALGADO :1975 Age:46 years Sex:Male Visit Date:11/30/2022 Primary Care Physician: MARIBETH BARKER MD Discharge Instructions We would like to thank you for allowing us to assist you with your healthcare needs. The following includes patient education materials and information regarding your injury/illness. Diagnosis from Today's Visit Pain, dental Discharge Vitals Temperature??(Temporal Artery) 96.8 ??F (36.0 ??C) Heart Rate??(Peripheral) 101 Respiratory Rate?? 16 Blood Pressure?? 173/94?? Height?? 69.69 in (177.000 cm) Weight??(Estimated) 260.04 lb (117.93 kg) Allergies Diphendramine HCL??(Hyperactivity level) melatonin??(Restless legs syndrome) What to Do Next Instructions from Your Care Team I have given you prescription of oxycodone please take once you are at home??and do not drive aftertaking. ??Can continue to take Tylenol and ibuprofen as needed and as take these at the same time??to help with the pain. ??Continue with the Augmentin??twice daily??and??follow-up with your dentist next week. ??Return to the emergency department any worsening??of symptoms. You Need to Schedule the Following Appointments Follow Up with??Tylenol/Motrin for Pain/Fever Relief When:??Within 1 month Follow Up with??MARIBETH BARKER MD When:??Within 1 month Where: [address] [place] [address]- You were treated today on an [...] Much When Why Instructions Next Dose Unchanged amoxicillin (amoxicillin 500 mg oral capsule) 1 Capsules Oral (given by mouth) Every 12 hours Pain, dental Unchanged amoxicillin-clavulanate (amoxicillin-clavulanate 875 mg-125 mg oral [...] as needed for as needed for nausea/vomiting Education Materials Dental Pain Dental pain is [...] after getting dental care. Medicines ? Take ddyo-qre-quogyhx and prescription medicines only as told by [...] may be mild or severe. ? Take qtoc-ugo-yplnjsh and prescription medicines only as told by [...] Reviewed: 11/11/2020 [employer] Patient Education ?? 2022 [employer]. Patient/Clipper Counters Signature Patient Name:SHOSHANA SALGADO I have received this information and my questions have been answered. Patient/Clipper Counters Name: Patient/Clipper Counters Signature: Relationship to Patient: Witness Name/Signature: Date: Electronically Signed on: 11/30/2022 21:43 EDTSigned by:GARETH Patient Care team information Care Team Personnel Name: MJ WILLS, MARIBETH Constantino Position: No Access Member Role: Primary Care Physician Address: Address: [address] [place] [address]- Name: Mary Guadarrama Position: Nurse Member Role: ED Nurse Name: GLENIS Campbell Position: Physician Member Role: Physician Address: Address: [address] [place] [id number] Care Team Related Persons Name: GRETTA SALGADO Name: GRETTA SALGADO Address: Home [address] [place] [phone] [facility] Address: Mailing [address] [place] [phone]
--- OUTSIDE RECORDS SUMMARY | 2024-01-04 13:07 | XMS_ITS | Clinical Summary ---
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 11 11/01/2018 Active pantoprazole EC (Protonix) [address] tablet Take 1 tablet by mouth daily. 90 tablet 3 06/07/2023 Active Insulin Basaglar KwikPen U-100 100 unit/mL (3 mL) pen Inject 40 Units subcutaneously daily. 11/18/2023 Active humaLOG KwikPen 100 unit/mL Insulin Pen Inject 0-14 Units subcutaneously 3 times daily (with meals). 11/18/2023 Active acetaminophen (Tylenol) 500 mg tablet Take 2 tablets by mouth every 6 hours as needed for Pain. 11/18/2023 Active AMIOdarone (Pacerone) 200 mg tablet Take 1 tablet by mouth daily. 30 tablet 11/18/2023 Active clopidogreL (Plavix) 75 mg tablet Take 1 tablet by mouth daily. 90 tablet 3 11/19/2023 Active citalopram (CeleXA) 10 mg tablet Take 1 tablet by mouth daily. 60 tablet 3 11/19/2023 Active ferrous sulfate (FeroSul) 325 mg (65 mg iron) tablet Take 1 tablet by mouth 3 times daily (with meals). 11/18/2023 Active Additional Information Patient taking differently:325 mg OralDAILY, Reported on 11/27/2023 Cholecalciferol, Vitamin D3, (Dialyvite Vitamin D) 125 mcg (5,000 unit) Capsule Take 1 capsule by mouth daily. 90 capsule 3 11/27/2023 Active dapagliflozin propanediol (Farxiga) 10 mg tablet Take 1 tablet by mouth daily. 11/27/2023 Active apixaban (Eliquis) 5 mg tablet Take 1 tablet by mouth 2 times daily. 60 tablet 1 12/21/2023 Active atorvastatin (Lipitor) 40 mg tablet Take 1 tablet by mouth every evening for 30 days. Then resume 80mg daily 30 tablet 12/21/2023 Active bumetanide (Bumex) 2 mg tablet Take 3 tablets by mouth 2 times daily. Take only on non-HD days (Monday, Monday, , and Monday) 96 tablet 1 12/21/2023 Active lidocaine (Lidoderm) 5% Adhesive Patch, Medicated Apply 1 patch onto the skin daily. (leave on for 12 hours and remove for 12 hours) 30 patch 12/21/2023 Active rOPINIRole (Requip) 0.5 mg tablet Take 1 tablet by mouth nightly. 30 tablet 1 12/21/2023 Active sacubitriL-valsar dang (Entresto) 24-26 mg tablet Take 1 tablet by mouth 2 times daily. 60 tablet 1 12/21/2023 Active Active Problems Problem Noted Date Diagnosed Date Metabolic encephalopathy 12/15/2023 Acute on chronic heart failu re with preserved ejection fraction (HFpEF) 12/12/2023 Acute kidney injury superimposed on chronic kidn ey disease 12/12/2023 Hyperkalemia 12/12/2023 Acute hypercapnic respiratory failure 12/12/2023 Respiratory failure with hypoxia 11/01/2023 Class 3 severe obesity in adult 10/31/2023 CKD (chronic kidney disease) 10/31/2023 DONAL (acute kidney injury) 10/31/2023 S/P CABG x 3 10/30/2023 CAD (coronary artery disease) 08/04/2023 STEMI (ST elevation myocardial infarction) 06/03 Diabetes mellitus 11/27/2018 Hypertension 11/27/[address] elevation myocardia l infarction (STEMI) of inferior wall 10/12/2018 Overview (01/21/2019): Cardiac Catheterization/ PCI (STEMI presentation) 10/12/18: Conclusions: * Three vessel coronary artery disease (LAD, LCX and RCA) * Elevated left ventricular end diastolic pressure * Successful stent insertion of the distal RCA lesion * Successful stent insertion of the mid LCX lesion Encounters Date Type Department Care Team Description 01/01/2024 Telephone Cardiology at [address] [phone] Karen Landrum RN 12/29/2023 Telephone Cardiology at [address] [phone] Alice Araiza RN Post Hospital Discharge (Carvedilol) 12/11/2023 Travel 2023 9:54 AM EDT - 12/21/2023 4:59 PM EDT Hospital Encounter Medical Specialites Unit Level 1 [place] [address] Steven Cartwright MD Dominiak, Coleman W, MD Yue, Amy Y, MD Congestive heart failure, unspecified HF chronicity, unspecified heart failure type; Hyperkalemia; DONAL (acute kidney injury); Acute respiratory failure with hypoxia Discharge Disposition: Home with VNA 2023 4:00 AM EDT Ancillary Procedure Radiology Library at [facility] [place] [address] Steven Cartwright MD 2023 2:55 AM EDT Ancillary Procedure Radiology Library at [facility] [place] [address] Steven Cartwright MD 2023 2:50 AM EDT Ancillary Procedure Radiology Library at [facility] [place] [address] Steven Cartwright MD 2023 Interpretation Only Radiology Library at [facility] [place] [address] Steven Cartwright MD 2023 Interpretation Only Radiology Library at [facility] [place] [address] Steven Cartwright MD 2023 Interpretation Only Radiology Library at [facility] [place] [address] Steven Cartwright MD 12/07/2023 Telephone Nephrology Hypertension at [address] Roslyn Garza, RN 12/06/2023 Telephone [place] [address] Roslyn Garza, RN 12/04/2023 Refill Cardiology at [place] [address] Luis Chavarira PA Medication Refill 12/04/2023 Refill Cardiac Surgery at [place] [phone] Anthony Diana PA 12/01/2023 Orders Only Nephrology Hypertension at [address] Donavon Frey MD Hyperkalemia 11/28/2023 Telephone Nephrology Hypertension at [place] [phone] Roslyn Garza, DELL 11/27/2023 8:00 AM EDT Office Visit Nephrology Hypertension at [place] [phone] Donavon Frey MD DONAL (acute kidney injury); Stage 3b chronic kidney disease; Anemia due to stage 3b chronic kidney disease; Hyperphosphatemia; Suspected sleep apnea 11/27/2023 6:45 AM EDT Laboratory Appointment Lab [address] [phone] DONAL (acute kidney injury); Stage 3b chronic kidney disease; Hyperphosphatemia 11/27/2023 Travel 11/21/2023 Orders [place] [address] He Styles PA 10/30/2023 7:32 AM EDT Anesthesia Event [place] [address] Janie Smith MD Margulies, Jacob A, CRNA 10/30/2023 7:30 AM EDT - 10/30/2023 1:22 PM EDT Surgery [place] [address] Festus Person MD ENDOSCOPIC HARVEST VEIN(S) FOR CABG (WRVU 0.31) 10/30/2023 6:13 AM EDT - 11/18/2023 1:45 PM EDT Hospital Encounter Heart and Vascular Unit Level 4 [place] [address] Festus Person MD Coronary artery disease involving [place] coronary artery of [place] heart without angina pectoris; 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, with long-term current use of insulin, unspecified laterality; S/P CABG x 3; Hypertension, unspecified type; ST elevation myocardial infarction (STEMI), unspecified artery Discharge Disposition: Home with VNA 10/27/2023 Telephone Internal Medicine at [place] [phone] Karthikeyan Chu PA Medication Refill 10/09/2023 Telephone Cardiology at [address] [phone] Karen Ladnrum RN from Last 3 Months Immunizations Name Administration Dates Next Due Td Adult (not absorbed) 05/19/2003 Family History Medical History Relation Comments Coronary Artery Disease Father Hyperlipidemia Father Hypertension Father Diabetes Maternal Grandfather Diabetes Paternal Grandfather Relation Status Comments Father Maternal Grandfather Paternal Grandfather Social History Tobacco Use Types Packs/Day Years Used Date Smoking Tobacco: Former Cigarettes 1 10 Smokeless Tobacco: Never Tobacco Cessation:Counseling Given: Not Answered Alcohol Use Standard Drinks/Week Comments Not Currently 0 (1 standard drink = 0.6 oz pure alcohol) Pt reports I haven't had a beer in months [facility] Utilities Answer Date Recorded In the past 12 months has th e electric, gas, oil, or water company threatened to shut off services in your home? No 12/11/2023 Hunger Vital Sign Answer Date Recorded Within the past 12 months, y ou worried that your food would run out before you got the money to buy more. Never true 12/11/19 24 Within the past 12 months, t he food you bought just didn't last and you didn't have money to get more. Never true 12/11/2023 PRAPARE - Transportation Answer Date Re corded In the past 12 months, has l ack of transportation kept you from medical appointments or from getting medications? No 11/21 In the past 12 months, has l ack of transportation kept you from meetings, work, or from getting things needed for daily living? No 12/11/2023 Housing Stability Vital Sign Answer Bertram e Recorded In the last 12 months, was t here a time when you were not able to pay the mortgage or rent on time? No 06/05/2023 In the last 12 months, how many places have you lived? 1 06/05/2023 In the last 12 months, was t here a time when you did not have a steady place to sleep or slept in a chcf (including now)? No 06/05/2023 Housing Stability Vital Sign Answer Bertram e Recorded In the last 12 months, was t here a time when you were not able to pay the mortgage or rent on time? No 12/11/2023 In the past 12 months, how m any times have you moved where you were living? 0 12/11/2023 At any time in the past 12 m [facility], were you homeless or living in a chcf (including now)? No 12/11/2023 IPV Inpatient Questions Answer Date Recorded Does Anyone Try to Keep You From Having Contact with Others or Doing Things Outside Your Home? no 2023 Feels Threatened by Someone no 11/21 Feels Unsafe at Home or Work/School no 2023 Physical Signs of Abuse Present no 2023 Sex and Gender Information Value Date Recorded Sex Assigned at Not on file Gender Identity Not on file Sexual Orientation Not on file Last Filed Vital Signs Vital Sign Reading Time Taken Comments Blood Pressure 143/78 12/21/2023 11:17 AM EDT Pulse 96 12/21/2023 12:00 PM EDT Temperature 36.8 ??C (98.2 ??F) 12/21/2023 11:17 AM E DT Respiratory Rate 16 12/21/2023 11:17 AM EDT Oxygen Saturation 92% 12/21/2023 11:17 AM EDT Inhaled Oxygen Concentration - - Weight 115 kg (253 lb 8.5 oz) 12/21/2023 6:00 AM EDT Height 177.8 cm (5' 10) 2023 10:00 AM EDT Body Mass Index 36.38 2023 10:00 AM EDT Plan of Treatment Upcoming Encounters Date Type Department Care Team (Late st Contact Info) Description 01/31/2024 9:30 AM EST Office Visit Nephrology [place] [phone] Donavon Frey MD [facility] [place] [address] 02/06/2024 1:00 PM EST Office Visit Cardiology at [address] [phone] Adrian Tello MD [facility] [place] [place] [address] 04/25/2024 10:30 AM EST Office Visit Sleep Center at [facility] [address] [place] [phone] Maria De Jesus Lange APRN [facility] [place] [address] Health Maintenance Due Date Last Done Comments CT Colonography 1977 Colonoscopy 1977 Colorectal Cancer Screening 1977 FIT DNA 1977 FIT 1977 Sigmoidoscopy (10 year) with FIT yearly 1977 Sigmoidoscopy 1977 Pneumococcal Vaccine: At-Ris k 5-64yrs (1 of 2 - PCV) 12/11/1983 DM Opthalmology Exam 12/11/1987 Hepatitis B vaccine (0-59 yrs) (1) 1996 Tetanus/Diphtheria/Pertussis Vaccines (1 - Tdap) 05/20/2003 05/19/2003 Covid-19 Vaccine (1 - 2023-2 5 season) 2023 Influenza (Flu) vaccine (1 o f 1 - Influenza standard series) 10/22/2023 DM Hemoglobin A1c 01/30/2024 10/31/2023, , 10/13/2018 DM Creatinine yearly 12/20/2024 12/21/2023, 12/20/2023, 12/19/2023, Additional history exists Hepatitis C Screening Completed 11/04/2023 HIV screen Completed 11/13/2023, 10/22, 11/12/2023, Additional history exists Medical Devices Implanted Type Area Plate Cleaner Device Identifier Shelf Expiration Date Model / Serial / Lot Cable,Cut,Edg ,Blnt,Ss,3tpr ([id number]) - [id number] Implanted:Qty : 1 on 10/30/2023 by Festus Person MD at [facility] IMPLANTS N/A: [employer] - [id number] 03/29/2028 [id number] / / [id number] Procedures Procedure Name Priority Date/Time Associated Diagnosis Comments POC, GLUCOSE Routine 12/21/2023 11:21 AM EDT SCAN DOC: TELEMETRY STRIPS 12/21/2023 7:28 AM EDT POC, GLUCOSE Routine 12/21/2023 6:37 AM EDT PTH Routine 12/21/2023 4:16 AM EDT FERRITIN Routine 12/21/2023 4:16 AM EDT IRON AND TIBC Routine 12/21/2023 4:16 AM EDT MAGNESIUM Routine 12/21/2023 4:16 AM EDT PHOSPHORUS Routine 12/21/2023 4:16 AM EDT BASIC METABOLIC PANEL Routine 12/21/2023 4:16 AM EDT CBC (WITH DIFF) Routine 12/21/2023 4:16 AM EDT SCAN DOC: TELEMETRY STRIPS 12/20/2023 7:54 PM EDT POC, GLUCOSE Routine 12/20/2023 7:29 PM EDT POC, GLUCOSE Routine 12/20/2023 4:36 PM EDT POC, GLUCOSE Routine 12/20/2023 2:12 PM EDT POC, GLUCOSE Routine 12/20/2023 11:37 AM EDT POC, GLUCOSE Routine 12/20/2023 10:58 AM EDT PFT PULSE OXIMETRY, OVERNIGHT Routine 12/20/2023 9:58 AM EDT SCAN DOC: TELEMETRY STRIPS 12/20/2023 7:45 AM EDT POC, GLUCOSE Routine 12/20/2023 6:05 AM EDT MAGNESIUM Routine 12/20/2023 4:31 AM EDT PHOSPHORUS Routine 12/20/2023 4:31 AM EDT BASIC METABOLIC PANEL Routine 12/20/2023 4:31 AM EDT CBC (WITH DIFF) Routine 12/20/2023 4:31 AM EDT SCAN DOC: TELEMETRY STRIPS 12/19/2023 8:56 PM EDT POC, GLUCOSE Routine 12/19/2023 7:21 PM EDT POC, GLUCOSE Routine 12/19/2023 4:06 PM EDT POC, GLUCOSE Routine 12/19/2023 12:02 PM EDT SCAN DOC: TELEMETRY STRIPS 12/19/2023 8:19 AM EDT POC, GLUCOSE Routine 12/19/2023 6:46 AM EDT MAGNESIUM Routine 12/19/2023 2:57 AM EDT PHOSPHORUS Routine 12/19/2023 2:57 AM EDT BASIC METABOLIC PANEL Routine 12/19/2023 2:57 AM EDT CBC (WITH DIFF) Routine 12/19/2023 2:57 AM EDT POC, GLUCOSE Routine 12/18/2023 7:47 PM EDT SCAN DOC: TELEMETRY STRIPS 12/18/2023 7:09 PM EDT SCAN DOC: TELEMETRY STRIPS 12/18/2023 7:09 PM EDT POC, GLUCOSE Routine 12/18/2023 4:52 PM EDT POC, GLUCOSE Routine 12/18/2023 3:49 PM EDT HEMOGLOBIN AND HEMATOCRIT, BLOOD STAT 12/18/2023 1:31 PM EDT POC, GLUCOSE Routine 12/18/2023 12:09 PM EDT SCAN DOC: TELEMETRY STRIPS 12/18/2023 7:41 AM EDT POC, GLUCOSE Routine 12/18/2023 6:47 AM EDT SCAN DOC: TELEMETRY STRIPS 12/18/2023 3:26 AM EDT MAGNESIUM Routine 12/18/2023 12:41 AM EDT PHOSPHORUS Routine 12/18/2023 12:41 AM EDT BASIC METABOLIC PANEL Routine 12/18/2023 12:41 AM EDT CBC (WITH DIFF) Routine 12/18/2023 12:41 AM EDT POC, GLUCOSE Routine 12/17/2023 9:15 PM EDT SCAN DOC: TELEMETRY STRIPS 12/17/2023 9:13 PM EDT POC, GLUCOSE Routine 12/17/2023 5:13 PM EDT SCAN DOC: TELEMETRY STRIPS 12/17/2023 1:46 PM EDT POC, GLUCOSE Routine 12/17/2023 12:14 PM EDT POC, GLUCOSE Routine 12/17/2023 6:10 AM EDT XR CHEST ONE VIEW STAT 12/17/2023 5:3 4 AM EDT BASIC METABOLIC PANEL Routine 12/17/2023 2:37 AM EDT CBC (WITH DIFF) Routine 12/17/2023 2:37 AM EDT SCAN DOC: TELEMETRY STRIPS 12/16/2023 11:06 PM EDT POC, GLUCOSE Routine 12/16/2023 9:31 PM EDT POC, GLUCOSE Routine 12/16/2023 5:14 PM EDT POC, GLUCOSE Routine 12/16/2023 12:14 PM EDT SCAN DOC: TELEMETRY STRIPS 12/16/2023 10:46 AM EDT POC, GLUCOSE Routine 12/16/2023 6:09 AM EDT BASIC METABOLIC PANEL Routine 12/16/2023 1:13 AM EDT CBC (WITH DIFF) Routine 12/16/2023 1:13 AM EDT POC, GLUCOSE Routine 12/15/2023 11:26 PM EDT SCAN DOC: TELEMETRY STRIPS 12/15/2023 7:57 PM EDT POC, GLUCOSE Routine 12/15/2023 7:46 PM EDT POC, GLUCOSE Routine 12/15/2023 5:10 PM EDT POC, GLUCOSE Routine 12/15/2023 11:22 AM EDT POC, GLUCOSE Routine 12/15/2023 9:34 AM EDT SCAN DOC: TELEMETRY STRIPS 12/15/2023 7:34 AM EDT POC, GLUCOSE Routine 12/15/2023 6:56 AM EDT BASIC METABOLIC PANEL Routine 12/15/2023 2:16 AM EDT CBC (WITH DIFF) Routine 12/15/2023 2:16 AM EDT POC, GLUCOSE Routine 12/14/2023 8:30 PM EDT SCAN DOC: TELEMETRY STRIPS 12/14/2023 7:37 PM EDT POC, GLUCOSE Routine 12/14/2023 5:13 PM EDT POC, GLUCOSE Routine 12/14/2023 4:12 PM EDT POC, GLUCOSE Routine 12/14/2023 1:26 PM EDT POC, GLUCOSE Routine 12/14/2023 8:34 AM EDT SCAN DOC: TELEMETRY STRIPS 12/14/2023 7:41 AM EDT POC, GLUCOSE Routine 12/14/2023 4:46 AM EDT PHOSPHORUS Routine 12/14/2023 4:46 AM EDT MAGNESIUM Routine 12/14/2023 4:46 AM EDT BASIC METABOLIC PANEL Routine 12/14/2023 4:46 AM EDT CBC (WITH DIFF) Routine 12/14/2023 4:46 AM EDT SCAN DOC: TELEMETRY STRIPS 12/14/2023 3:28 AM EDT POC, GLUCOSE Routine 12/13/2023 9:[address] CHEST WO CONTRAST (GENERIC) Routine 12/13/2023 5:12 PM EDT POC, GLUCOSE Routine 12/13/2023 4:31 PM EDT POC, GLUCOSE Routine 12/13/2023 11:13 AM EDT SCAN DOC: TELEMETRY STRIPS 12/13/2023 7:39 AM EDT POC, GLUCOSE Routine 12/13/2023 7:01 AM EDT BASIC METABOLIC PANEL Routine 12/13/2023 3:06 AM EDT CBC (WITH DIFF) Routine 12/13/2023 3:06 AM EDT POC, GLUCOSE Routine 12/12/2023 8:51 PM EDT PHOSPHORUS Routine 12/12/2023 4:07 PM EDT MAGNESIUM Routine 12/12/2023 4:07 PM EDT ELECTROLYTES PANEL Routine 12/12/2023 4: 07 PM EDT POC, GLUCOSE Routine 12/12/2023 3:51 PM EDT POC, GLUCOSE Routine 12/12/2023 11:11 AM EDT BASIC METABOLIC PANEL Routine 12/12/2023 7:38 AM EDT SCAN DOC: TELEMETRY STRIPS 12/12/2023 7:27 AM EDT POC, GLUCOSE Routine 12/12/2023 7:05 AM EDT POC, GLUCOSE Routine 12/12/2023 6:50 AM EDT POC, GLUCOSE Routine 12/12/2023 5:48 AM EDT BASIC METABOLIC PANEL Routine 12/12/2023 4:08 AM EDT CBC (WITH DIFF) Routine 12/12/2023 4:08 AM EDT BASIC METABOLIC PANEL Routine 12/12/2023 12:04 AM EDT BASIC METABOLIC PANEL Routine 12/11/2023 8:20 PM EDT POC, GLUCOSE Routine 12/11/2023 7:48 PM EDT POC, GLUCOSE Routine 12/11/2023 4:54 PM EDT IMMUNOGLOBULINS, QUANTITATIVE Routine 12/11/2023 4:24 PM EDT IMMUNOFIXATION ELECTROPHORESIS, SERUM Routine 12/11/2023 4:24 PM EDT HEPATITIS B SURFACE ANTIGEN Add-On 12/11/2023 4:24 PM EDT PROTEIN, TOTAL ELECTROPHORESIS (PERFROMABLE) Routine 12/11/2023 4:24 PM EDT PEP, SERUM (PERFORMABLE) Routine 12/11/2023 4:24 PM EDT C4 COMPLEMENT Routine 12/11/2023 4:24 PM EDT C3 COMPLEMENT Routine 12/11/2023 4:24 PM EDT IMMUNOGLOBULIN FREE LIGHT CHAINS, SERUM Routine 12/11/2023 4:24 PM EDT PROTEIN ELECTROPHORESIS, SERUM Routine 12/11/2023 4:24 PM EDT BASIC METABOLIC PANEL Routine 12/11/2023 4:24 PM EDT IR DIALYSIS ACCESS - TUNNELED LINE STAT 12/11/2023 3:55 PM EDT POC, GLUCOSE Routine 12/11/2023 1:50 PM EDT POC, GLUCOSE Routine 12/11/2023 12:09 PM EDT BASIC METABOLIC PANEL Routine 12/11/2023 11:49 AM EDT BLOOD GAS VENOUS Routine 12/11/2023 9:54 AM EDT POC, GLUCOSE Routine 12/11/2023 9:53 AM EDT ECHO COMPLETE W CONTRAST Routine 12/11/2023 9:04 AM EDT Congestive heart failure, unspecified HF chronicity, unspecified heart failure type SCAN DOC: TELEMETRY STRIPS 12/11/2023 8:24 AM EDT BASIC METABOLIC PANEL Routine 12/11/2023 8:12 AM EDT POC, GLUCOSE Routine 12/11/2023 8:08 AM EDT EKG 12-LEAD STAT 12/11/2023 8:02 AM EDT DONAL (acute kidney injury) BLOOD GAS VENOUS STAT 12/11/2023 6:20 AM EDT POC, GLUCOSE Routine 12/11/2023 6:16 AM EDT EKG 12-LEAD STAT 12/11/2023 4:54 AM EDT Hyperkalemia BASIC METABOLIC PANEL Routine 12/11/2023 4:13 AM EDT CBC (WITH DIFF) Routine 12/11/2023 4:13 AM EDT POC, GLUCOSE Routine 12/11/2023 4:10 AM EDT POC, GLUCOSE Routine 12/11/2023 2:19 AM EDT BASIC METABOLIC PANEL Routine 2023 11:39 PM EDT POC, GLUCOSE Routine 2023 11:35 PM EDT POC, GLUCOSE Routine 2023 9:28 PM EDT PHOSPHORUS Routine 2023 8:21 PM EDT MAGNESIUM Routine 2023 8:21 PM EDT BASIC METABOLIC PANEL Routine 2023 8:21 PM EDT POC, GLUCOSE Routine 2023 8:19 PM EDT POC, GLUCOSE Routine 2023 6:59 PM EDT BASIC METABOLIC PANEL Routine 2023 5:07 PM EDT LACTATE, WHOLE BLOOD Routine 2023 5:07 PM EDT POC, GLUCOSE Routine 2023 4:58 PM EDT T4, FREE Routine 2023 2:10 PM EDT TSH CASCADE Add-On 2023 2:10 PM EDT PRO-BRAIN NATRIURETIC PEPTIDE Routine 2023 2:10 PM EDT HC PARTIAL THROMBOPLASTIN TIME Routine 2023 2:10 PM EDT PROTHROMBIN TIME Routine 2023 2:10 PM EDT HEPATIC FUNCTION PANEL Routine 2:10 PM EDT PHOSPHORUS Routine 2023 2:10 PM EDT MAGNESIUM Routine 2023 2:10 PM EDT CBC (WITH DIFF) Routine 2023 2:10 PM EDT BASIC METABOLIC PANEL Routine 2023 2:10 PM EDT XR CHEST ONE VIEW Routine 2023 1:3 8 PM EDT POC, GLUCOSE Routine 2023 1:00 PM EDT EKG 12-LEAD Routine 2023 12:46 PM EDT Congestive heart failure, unspecified HF chronicity, unspecified heart failure type FILM LIBRARY STORAGE ONLY DX CHEST Routine 2023 3:56 AM EDT FILM LIBRARY STORAGE ONLY CT ABDOMEN AND PELVIS Routine 2023 2:55 AM EDT FILM LIBRARY STORAGE ONLY CT CHEST Routine 2023 2:50 AM EDT ORDS - PROVIDER CARE SCAN 12/06/2023 12:00 AM EDT PROTEIN/CREATININE RATIO, URINE Routine 11/27/2023 8:00 AM EDT DONAL (acute kidney injury) Stage 3b chronic kidney disease U ALBUMIN/CRE RATIO Routine 11/27/2023 8 :00 AM EDT DONAL (acute kidney injury) Stage 3b chronic kidney disease PHOSPHORUS Add-On 11/27/2023 7:56 AM EDT Hyperphosphatemia IRON AND TIBC Add-On 11/27/2023 7:56 AM EDT Anemia due to stage 3b chronic kidney disease FERRITIN Add-On 11/27/2023 7:56 AM EDT Anemia due to stage 3b chronic kidney disease VITAMIN D, 25-HYDROXY Routine 11/27/2023 7:56 AM EDT DONAL (acute kidney injury) Stage 3b chronic kidney disease PTH Routine 11/27/2023 7:56 AM EDT DONAL (acute kidney injury) Stage 3b chronic kidney disease CBC (WITH DIFF) Routine 11/27/2023 7:56 AM EDT DONAL (acute kidney injury) Stage 3b chronic kidney disease ALBUMIN LEVEL Routine 11/27/2023 7:56 AM EDT DONAL (acute kidney injury) Stage 3b chronic kidney disease BASIC METABOLIC PANEL Routine 11/27/2023 7:56 AM EDT DONAL (acute kidney injury) Stage 3b chronic kidney disease POC, GLUCOSE Routine 11/18/2023 7:53 AM EDT POC, GLUCOSE Routine 11/18/2023 3:45 AM EDT BASIC METABOLIC PANEL Routine 11/18/2023 2:14 AM EDT PHOSPHORUS Routine 11/18/2023 2:14 AM EDT MAGNESIUM Routine 11/18/2023 2:14 AM EDT POC, GLUCOSE Routine 11/17/2023 11:32 PM EDT SCAN DOC: TELEMETRY STRIPS 11/17/2023 7:43 PM EDT POC, GLUCOSE Routine 11/17/2023 7:13 PM EDT POC, GLUCOSE Routine 11/17/2023 4:33 PM EDT POC, GLUCOSE Routine 11/17/2023 12:16 PM EDT XR CHEST PA AND LATERAL Routine 11/17/2023 10:09 AM EDT POC, GLUCOSE Routine 11/17/2023 8:08 AM EDT BASIC METABOLIC PANEL Routine 11/17/2023 5:10 AM EDT PHOSPHORUS Routine 11/17/2023 5:10 AM EDT MAGNESIUM Routine 11/17/2023 5:10 AM EDT POC, GLUCOSE Routine 11/17/2023 4:05 AM EDT POC, GLUCOSE Routine 11/17/2023 12:04 AM EDT SCAN DOC: TELEMETRY STRIPS 11/16/2023 8:30 PM EDT POC, GLUCOSE Routine 11/16/2023 8:03 PM EDT POC, GLUCOSE Routine 11/16/2023 7:39 PM EDT POC, GLUCOSE Routine 11/16/2023 5:02 PM EDT POC, GLUCOSE Routine 11/16/2023 11:17 AM EDT POC, GLUCOSE Routine 11/16/2023 8:16 AM EDT SCAN DOC: TELEMETRY STRIPS 11/16/2023 7:44 AM EDT POC, GLUCOSE Routine 11/16/2023 6:22 AM EDT POC, GLUCOSE Routine 11/16/2023 3:07 AM EDT SCAN DOC: TELEMETRY STRIPS 11/16/2023 1:58 AM EDT CBC (WITH DIFF) Routine 11/16/2023 1:29 AM EDT BASIC METABOLIC PANEL Routine 11/16/2023 1:29 AM EDT PHOSPHORUS Routine 11/16/2023 1:29 AM EDT MAGNESIUM Routine 11/16/2023 1:29 AM EDT POC, GLUCOSE Routine 11/16/2023 12:25 AM EDT POC, GLUCOSE Routine 11/15/2023 8:00 PM EDT POC, GLUCOSE Routine 11/15/2023 4:11 PM EDT FERRITIN Routine 11/15/2023 4:09 PM EDT IRON AND TIBC Routine 11/15/2023 4:09 PM EDT POC, GLUCOSE Routine 11/15/2023 12:05 PM EDT POC, GLUCOSE Routine 11/15/2023 8:22 AM EDT POC, GLUCOSE Routine 11/15/2023 3:52 AM EDT POC, GLUCOSE Routine 11/15/2023 12:01 AM EDT CBC (WITH DIFF) Routine 11/15/2023 12:01 AM EDT BASIC METABOLIC PANEL Routine 11/15/2023 12:01 AM EDT PHOSPHORUS Routine 11/15/2023 12:01 AM EDT MAGNESIUM Routine 11/15/2023 12:01 AM EDT POC, GLUCOSE Routine 11/14/2023 8:41 PM EDT POC, GLUCOSE Routine 11/14/2023 5:24 PM EDT POC, GLUCOSE Routine 11/14/2023 12:05 PM EDT POC, GLUCOSE Routine 11/14/2023 8:29 AM EDT POC, GLUCOSE Routine 11/14/2023 4:42 AM EDT CBC (WITH DIFF) Routine 11/14/2023 12:10 AM EDT BASIC METABOLIC PANEL Routine 11/14/2023 12:10 AM EDT PHOSPHORUS Routine 11/14/2023 12:10 AM EDT MAGNESIUM Routine 11/14/2023 12:10 AM EDT POC, GLUCOSE Routine 11/13/2023 11:53 PM EDT POC, GLUCOSE Routine 11/13/2023 9:01 PM EDT POC, GLUCOSE Routine 11/13/2023 4:29 PM EDT BASIC METABOLIC PANEL Routine 11/13/2023 4:05 PM EDT POC, GLUCOSE Routine 11/13/2023 12:16 PM EDT POC, GLUCOSE Routine 11/13/2023 9:25 AM EDT BLOOD GAS ARTERIAL Routine 11/13/2023 6: 35 AM EDT HEPARIN (UNFRACTIONATED) LEVEL Timed 11/13/2023 6:33 AM EDT POC, GLUCOSE Routine 11/13/2023 4:02 AM EDT BLOOD GAS ARTERIAL Routine 11/13/2023 12 :10 AM EDT HEPARIN (UNFRACTIONATED) LEVEL Timed 11/13/2023 12:09 AM EDT CBC (WITH DIFF) Routine 11/13/2023 12:09 AM EDT BASIC METABOLIC PANEL Routine 11/13/2023 12:09 AM EDT PHOSPHORUS Routine 11/13/2023 12:09 AM EDT MAGNESIUM Routine 11/13/2023 12:09 AM EDT POC, GLUCOSE Routine 11/13/2023 12:08 AM EDT POC, GLUCOSE Routine 11/12/2023 8:05 PM EDT BLOOD GAS ARTERIAL Routine 11/12/2023 5: 54 PM EDT POC, GLUCOSE Routine 11/12/2023 4:27 PM EDT BLOOD GAS ARTERIAL POC Routine 12:02 PM EDT POC, GLUCOSE Routine 11/12/2023 8:12 AM EDT BLOOD GAS ARTERIAL POC Routine 6:46 AM EDT BLOOD GAS ARTERIAL POC Routine 6:42 AM EDT POC, GLUCOSE Routine 11/12/2023 4:07 AM EDT POC, GLUCOSE Routine 11/12/2023 2:04 AM EDT BLOOD GAS ARTERIAL POC Routine 12:12 AM EDT HEPARIN (UNFRACTIONATED) LEVEL Timed 11/12/2023 12:09 AM EDT CBC (WITH DIFF) Routine 11/12/2023 12:09 AM EDT BASIC METABOLIC PANEL Routine 11/12/2023 12:09 AM EDT PHOSPHORUS Routine 11/12/2023 12:09 AM EDT MAGNESIUM Routine 11/12/2023 12:09 AM EDT POC, GLUCOSE Routine 11/12/2023 12:08 AM EDT SCAN DOC: TELEMETRY STRIPS 11/11/2023 8:58 PM EDT POC, GLUCOSE Routine 11/11/2023 8:29 PM EDT BLOOD GAS ARTERIAL POC Routine 09/21/202 4 5:59 PM EDT HEPARIN (UNFRACTIONATED) LEVEL Timed 11/11/2023 5:57 PM EDT POC, GLUCOSE Routine 11/11/2023 4:34 PM EDT BLOOD GAS ARTERIAL POC Routine 4 11:58 AM EDT SCAN DOC: TELEMETRY STRIPS 11/11/2023 10:11 AM EDT XR ABDOMEN 1 VIEW Routine 11/11/2023 9:5 2 AM EDT POC, GLUCOSE Routine 11/11/2023 8:42 AM EDT LIPASE Routine 11/11/2023 8:39 AM EDT AMYLASE Routine 11/11/2023 8:39 AM EDT HEPATIC FUNCTION PANEL Routine 8:39 AM EDT BLOOD GAS ARTERIAL POC Routine 4 6:36 AM EDT HEPARIN (UNFRACTIONATED) LEVEL Timed 11/11/2023 6:33 AM EDT POC, GLUCOSE Routine 11/11/2023 4:06 AM EDT BLOOD GAS ARTERIAL POC Routine 4 12:14 AM EDT HE[place]IN (UNFRACTIONATED) LEVEL Timed 11/11/2023 12:12 AM EDT CBC (WITH DIFF) Routine 11/11/2023 12:12 AM EDT BASIC METABOLIC PANEL Routine 11/11/2023 12:12 AM EDT PHOSPHORUS Routine 11/11/2023 12:12 AM EDT MAGNESIUM Routine 11/11/2023 12:12 AM EDT POC, GLUCOSE Routine 11/11/2023 12:11 AM EDT SCAN DOC: TELEMETRY STRIPS 11/10/2023 8:25 PM EDT SCAN DOC: TELEMETRY STRIPS 11/10/2023 8:25 PM EDT POC, GLUCOSE Routine 11/10/2023 8:10 PM EDT BLOOD GAS ARTERIAL POC Routine 6:15 PM EDT HEPARIN (UNFRACTIONATED) LEVEL Timed 11/10/2023 6:13 PM EDT POC, GLUCOSE Routine 11/10/2023 4:50 PM EDT C DIFF SCREEN PERFORMABLE Routine 11/10/2023 2:17 PM EDT C DIFF PCR Routine 11/10/2023 2:17 PM EDT C. DIFFICILE SCREEN Routine 11/10/2023 2 :17 PM EDT BLOOD GAS ARTERIAL POC Routine 12:43 PM EDT EKG 12-LEAD STAT 11/10/2023 12:25 PM EDT S/P CABG x 3 SCAN, PERIPHERAL BLOOD Routine 4 10:55 AM EDT CBC (WITH DIFF) Routine 11/10/2023 10:55 AM EDT BLOOD GAS ARTERIAL POC Routine 4 10:48 AM EDT SCAN DOC: TELEMETRY STRIPS 11/10/2023 9:59 AM EDT EXTUBATE Routine 11/10/2023 8:36 AM EDT BLOOD GAS ARTERIAL POC Routine 4 8:14 AM EDT BLOOD GAS ARTERIAL POC Routine 5:53 AM EDT POC, GLUCOSE Routine 11/10/2023 4:11 AM EDT BLOOD GAS ARTERIAL POC Routine 12:45 AM EDT CBC (WITH DIFF) Routine 11/10/2023 12:43 AM EDT BASIC METABOLIC PANEL Routine 11/10/2023 12:43 AM EDT PHOSPHORUS Routine 11/10/2023 12:43 AM EDT MAGNESIUM Routine 11/10/2023 12:43 AM EDT POC, GLUCOSE Routine 11/09/2023 8:30 PM EDT SCAN DOC: TELEMETRY STRIPS 11/09/2023 6:35 PM EDT PHOSPHORUS STAT 11/09/2023 3:59 PM EDT BLOOD GAS ARTERIAL POC Routine 4 3:57 PM EDT BLOOD GAS ARTERIAL POC Routine 4 1:59 PM EDT BLOOD GAS ARTERIAL POC Routine 4 11:34 AM EDT PHOSPHORUS STAT 11/09/2023 11:33 AM EDT MAGNESIUM STAT 11/09/2023 11:33 AM EDT CREATININE STAT 11/09/2023 11:33 AM EDT BUN STAT 11/09/2023 11:33 AM EDT ELECTROLYTES PANEL STAT 11/09/2023 11 :33 AM EDT BLOOD GAS ARTERIAL POC Routine 4 9:05 AM EDT BLOOD GAS ARTERIAL POC Routine 4 7:47 AM EDT BLOOD GAS ARTERIAL POC Routine 4 6:24 AM EDT POC, GLUCOSE Routine 11/09/2023 4:14 AM EDT BLOOD GAS ARTERIAL POC Routine 4 12:19 AM EDT CBC (WITH DIFF) Routine 11/09/2023 12:16 AM EDT BASIC METABOLIC PANEL Routine 11/09/2023 12:16 AM EDT PHOSPHORUS Routine 11/09/2023 12:16 AM EDT MAGNESIUM Routine 11/09/2023 12:16 AM EDT BLOOD GAS ARTERIAL POC Routine 4 8:39 PM EDT BLOOD GAS ARTERIAL POC Routine 4 6:13 PM EDT POC, GLUCOSE Routine 11/08/2023 3:54 PM EDT BLOOD GAS ARTERIAL POC Routine 4 1:11 PM EDT PHOSPHORUS STAT 11/08/2023 11:53 AM EDT MAGNESIUM STAT 11/08/2023 11:53 AM EDT CREATININE STAT 11/08/2023 11:53 AM EDT BUN STAT 11/08/2023 11:53 AM EDT ELECTROLYTES PANEL STAT 11/08/2023 11 :53 AM EDT BLOOD GAS ARTERIAL POC Routine 11:52 AM EDT POC, GLUCOSE Routine 11/08/2023 11:07 AM EDT BLOOD GAS ARTERIAL POC Routine 9:10 AM EDT XR CHEST ONE VIEW Routine 11/08/2023 8:2 5 AM EDT POC, GLUCOSE Routine 11/08/2023 7:40 AM EDT BLOOD GAS ARTERIAL POC Routine 5:54 AM EDT ELECTROLYTES PANEL STAT 11/08/2023 5: 52 AM EDT POC, GLUCOSE Routine 11/08/2023 4:12 AM EDT POC, GLUCOSE Routine 11/08/2023 12:13 AM EDT BLOOD GAS ARTERIAL POC Routine 12:10 AM EDT CBC (WITH DIFF) Routine 11/08/2023 12:09 AM EDT BASIC METABOLIC PANEL Routine 11/08/2023 12:09 AM EDT PHOSPHORUS Routine 11/08/2023 12:09 AM EDT MAGNESIUM Routine 11/08/2023 12:09 AM EDT HC TR PSLD, RED BLOOD CELLS, IRRADIATED Routine 11/07/2023 10:03 PM EDT Coronary artery disease involving [place] coronary artery of [place] heart without angina pectoris BLOOD GAS ARTERIAL POC Routine 09/17/202 4 7:57 PM EDT BLOOD GAS ARTERIAL POC Routine 4 5:49 PM EDT BLOOD GAS ARTERIAL POC Routine 4 5:45 PM EDT ELECTROLYTES PANEL STAT 11/07/2023 5: 43 PM EDT BUN STAT 11/07/2023 5:43 PM EDT CREATININE STAT 11/07/2023 5:43 PM EDT MAGNESIUM STAT 11/07/2023 5:43 PM EDT PHOSPHORUS STAT 11/07/2023 5:43 PM EDT POC, GLUCOSE Routine 11/07/2023 5:13 PM EDT POC, GLUCOSE Routine 11/07/2023 3:24 PM EDT BLOOD GAS ARTERIAL POC Routine 4 1:32 PM EDT BLOOD GAS ARTERIAL POC Routine 11:49 AM EDT PHOSPHORUS STAT 11/07/2023 11:48 AM EDT MAGNESIUM STAT 11/07/2023 11:48 AM EDT CREATININE STAT 11/07/2023 11:48 AM EDT BUN STAT 11/07/2023 11:48 AM EDT ELECTROLYTES PANEL STAT 11/07/2023 11 :48 AM EDT TRANSFUSE RED BLOOD CELLS Routine 11/07/2023 10:00 AM EDT POC, GLUCOSE Routine 11/07/2023 8:49 AM EDT ABORH RECHECK (PATIENT HISTORY FOUND) Routine 11/07/2023 8:17 AM EDT TYPE AND SCREEN ([facility]/CGP/JEN) Routine 11/07/2023 8:17 AM EDT BLOOD GAS ARTERIAL POC Routine 4 8:05 AM EDT POTASSIUM Routine 11/07/2023 5:14 AM EDT BLOOD GAS ARTERIAL POC Routine 4 4:07 AM EDT BLOOD GAS ARTERIAL POC Routine 4 12:17 AM EDT SCAN, PERIPHERAL BLOOD Routine 12:16 AM EDT CBC (WITH DIFF) Routine 11/07/2023 12:16 AM EDT BASIC METABOLIC PANEL Routine 11/07/2023 12:16 AM EDT PHOSPHORUS Routine 11/07/2023 12:16 AM EDT MAGNESIUM Routine 11/07/2023 12:16 AM EDT BLOOD CULTURE STAT 11/06/2023 10:15 PM EDT URINALYSIS DIPSTICK Routine 11/06/2023 9 :50 PM EDT BLOOD GAS ARTERIAL POC Routine 7:59 PM EDT POC, GLUCOSE Routine 11/06/2023 7:18 PM EDT SCAN DOC: TELEMETRY STRIPS 11/06/2023 6:37 PM EDT SCAN DOC: TELEMETRY STRIPS 11/06/2023 6:37 PM EDT BLOOD GAS ARTERIAL POC Routine 4 4:00 PM EDT BLOOD GAS ARTERIAL POC Routine 4 1:50 PM EDT BLOOD GAS ARTERIAL POC Routine 4 11:46 AM EDT POTASSIUM Routine 11/06/2023 7:53 AM EDT BLOOD GAS ARTERIAL POC Routine 7:51 AM EDT BLOOD GAS ARTERIAL POC Routine 4 6:48 AM EDT BLOOD GAS ARTERIAL POC Routine 4:08 AM EDT POTASSIUM Routine 11/06/2023 4:06 AM EDT CBC (WITH DIFF) Routine 11/06/2023 12:01 AM EDT BASIC METABOLIC PANEL Routine 11/06/2023 12:01 AM EDT PHOSPHORUS Routine 11/06/2023 12:01 AM EDT MAGNESIUM Routine 11/06/2023 12:01 AM EDT BLOOD GAS ARTERIAL POC Routine 4 12:00 AM EDT SCAN DOC: TELEMETRY STRIPS 11/05/2023 10:45 PM EDT SCAN DOC: TELEMETRY STRIPS 11/05/2023 10:45 PM EDT HC TR PSLD, RED BLOOD CELLS, IRRADIATED Routine 11/05/2023 10:03 PM EDT Coronary artery disease involving [place] coronary artery of [place] heart without angina pectoris BLOOD GAS ARTERIAL POC Routine 8:06 PM EDT BLOOD GAS ARTERIAL POC Routine 4 5:52 PM EDT BLOOD GAS ARTERIAL POC Routine 4 4:03 PM EDT XR CHEST ONE VIEW STAT 11/05/2023 3:0 2 PM EDT BLOOD GAS ARTERIAL POC Routine 2:11 PM EDT BLOOD GAS ARTERIAL POC Routine 4 12:03 PM EDT PHOSPHORUS STAT 11/05/2023 12:01 PM EDT MAGNESIUM STAT 11/05/2023 12:01 PM EDT CREATININE STAT 11/05/2023 12:01 PM EDT BUN STAT 11/05/2023 12:01 PM EDT ELECTROLYTES PANEL STAT 11/05/2023 12 :01 PM EDT XR CHEST ONE VIEW STAT 11/05/2023 11: 53 AM EDT TRANSFUSE RED BLOOD CELLS Routine 11/05/2023 10:00 AM EDT POC, GLUCOSE Routine 11/05/2023 9:26 AM EDT POC, GLUCOSE Routine 11/05/2023 5:50 AM EDT POTASSIUM Routine 11/05/2023 4:51 AM EDT CK Routine 11/05/2023 4:51 AM EDT POC, GLUCOSE Routine 11/05/2023 4:18 AM EDT BLOOD GAS ARTERIAL POC Routine 2:14 AM EDT CBC (WITH DIFF) Routine 11/05/2023 12:08 AM EDT BASIC METABOLIC PANEL Routine 11/05/2023 12:08 AM EDT VANCOMYCIN LEVEL, RANDOM Timed 11/05/2023 12:08 AM EDT PHOSPHORUS Routine 11/05/2023 12:08 AM EDT MAGNESIUM Routine 11/05/2023 12:08 AM EDT CK Routine 11/05/2023 12:08 AM EDT POC, GLUCOSE Routine 11/05/2023 12:07 AM EDT LAB SCAN 11/05/2023 12:00 AM EDT SCAN DOC: TELEMETRY STRIPS 11/04/2023 10:17 PM EDT POC, GLUCOSE Routine 11/04/2023 10:13 PM EDT POC, GLUCOSE Routine 11/04/2023 8:19 PM EDT POTASSIUM Routine 11/04/2023 5:15 PM EDT CK Routine 11/04/2023 5:15 PM EDT BLOOD GAS ARTERIAL POC Routine 4:45 PM EDT HCV REFLEX HOLD Routine 11/04/2023 4:36 PM EDT HEPATITIS C ANTIBODY WITH REFLEX (PERFORMABLE) Routine 11/04/2023 4:36 PM EDT HEPATITIS B CORE ANTIBODY, IGM Routine 11/04/2023 4:36 PM EDT HEPATITIS B SURFACE ANTIGEN Routine 11/04/2023 4:36 PM EDT HEP C AB WITH REFLEX Routine 11/04/2023 4:36 PM EDT VITAMIN D, 25-HYDROXY Routine 11/04/2023 4:36 PM EDT PTH Routine 11/04/2023 4:36 PM EDT FERRITIN Routine 11/04/2023 4:36 PM EDT HC TR PSLD, RED BLOOD CELLS, IRRADIATED Routine 11/04/2023 2:03 PM EDT Coronary artery disease involving [place] coronary artery of [place] heart without angina pectoris U ALBUMIN/CRE RATIO Add-On 11/04/2023 1 1:54 AM EDT PROTEIN/CREATININE RATIO, URINE Add-On 11/04/2023 11:54 AM EDT SODIUM, URINE, RANDOM Add-On 11/04/2023 11:54 AM EDT URINALYSIS BEAKER MICROSCOPIC (MH/JUSTIN) Routine 11/04/2023 11:54 AM EDT URINALYSIS MICROSCOPIC EXAM Routine 11/04/2023 11:54 AM EDT URINALYSIS DIPSTICK Routine 11/04/2023 1 1:54 AM EDT _URINALYSIS WITH MICRSOCOPIC Routine 11/04/2023 11:54 AM EDT CREATININE, URINE, RANDOM Routine 11/04/2023 11:54 AM EDT UREA NITROGEN, URINE, RANDOM Routine 11/04/2023 11:54 AM EDT BLOOD GAS ARTERIAL POC Routine 11:39 AM EDT T3 TOTAL Add-On 11/04/2023 9:46 AM EDT T4 TOTAL Add-On 11/04/2023 9:46 AM EDT TSH Add-On 11/04/2023 9:46 AM EDT URIC ACID Add-On 11/04/2023 9:46 AM EDT CK Add-On 11/04/2023 9:46 AM EDT IRON AND TIBC Add-On 11/04/2023 9:46 AM EDT POTASSIUM Routine 11/04/2023 9:46 AM EDT BLOOD GAS ARTERIAL POC Routine 8:23 AM EDT POC, GLUCOSE Routine 11/04/2023 6:00 AM EDT BLOOD GAS ARTERIAL POC Routine 3:32 AM EDT POC, GLUCOSE Routine 11/04/2023 3:31 AM EDT POTASSIUM Routine 11/04/2023 3:29 AM EDT POC, GLUCOSE Routine 11/04/2023 1:41 AM EDT POTASSIUM Routine 11/04/2023 1:38 AM EDT ABORH RECHECK (PATIENT HISTORY FOUND) Routine 11/03/2023 11:53 PM EDT TYPE AND SCREEN ([facility]/CGP/JEN) Routine 11/03/2023 11:53 PM EDT BASIC METABOLIC PANEL Routine 11/03/2023 11:53 PM EDT VANCOMYCIN LEVEL, RANDOM Timed 11/03/2023 11:53 PM EDT PROTHROMBIN TIME Routine 11/03/2023 11:5 3 PM EDT PHOSPHORUS Routine 11/03/2023 11:53 PM EDT MAGNESIUM Routine 11/03/2023 11:53 PM EDT TRIGLYCERIDE Routine 11/03/2023 11:53 PM EDT POC, GLUCOSE Routine 11/03/2023 11:52 PM EDT POC, GLUCOSE Routine 11/03/2023 11:10 PM EDT POC, GLUCOSE Routine 11/03/2023 10:33 PM EDT CBC (WITH DIFF) Routine 11/03/2023 10:28 PM EDT BLOOD GAS ARTERIAL POC Routine 8:31 PM EDT POTASSIUM Routine 11/03/2023 8:23 PM EDT SCAN DOC: TELEMETRY STRIPS 11/03/2023 7:55 PM EDT POC, GLUCOSE Routine 11/03/2023 7:24 PM EDT POC, GLUCOSE Routine 11/03/2023 5:14 PM EDT POC, GLUCOSE Routine 11/03/2023 3:46 PM EDT BLOOD GAS ARTERIAL POC Routine 1:09 PM EDT BASIC METABOLIC PANEL Routine 11/03/2023 1:05 PM EDT PROTHROMBIN TIME Routine 11/03/2023 1:05 PM EDT XR ABDOMEN 1 VIEW STAT 11/03/2023 12: 27 PM EDT XR ABDOMEN 1 VIEW STAT 11/03/2023 12: 19 PM EDT POC, GLUCOSE Routine 11/03/2023 11:24 AM EDT POC, GLUCOSE Routine 11/03/2023 10:03 AM EDT POC, GLUCOSE Routine 11/03/2023 9:25 AM EDT DUPLEX FOR DVT BILAT LEGS Routine 11/03/2023 8:39 AM EDT S/P CABG x 3 POTASSIUM Routine 11/03/2023 7:46 AM EDT VANCOMYCIN LEVEL, RANDOM Timed 11/03/2023 7:46 AM EDT BLOOD GAS ARTERIAL POC Routine 7:07 AM EDT POC, GLUCOSE Routine 11/03/2023 6:22 AM EDT POC, GLUCOSE Routine 11/03/2023 5:09 AM EDT POC, GLUCOSE Routine 11/03/2023 2:20 AM EDT POC, GLUCOSE Routine 11/03/2023 12:22 AM EDT BASIC METABOLIC PANEL Routine 11/03/2023 12:21 AM EDT CBC (WITH DIFF) Routine 11/03/2023 12:21 AM EDT POC, GLUCOSE Routine 11/02/2023 10:08 PM EDT BLOOD GAS ARTERIAL POC Routine 9:20 PM EDT POTASSIUM Routine 11/02/2023 9:16 PM EDT SCAN DOC: TELEMETRY STRIPS 11/02/2023 8:44 PM EDT POC, GLUCOSE Routine 11/02/2023 8:03 PM EDT LOWER RESPIRATORY CULTURE Routine 11/02/2023 6:38 PM EDT LOWER RESPIRATORY CULTURE Routine 11/02/2023 6:29 PM EDT BLOOD GAS ARTERIAL POC Routine 6:12 PM EDT BLOOD GAS ARTERIAL POC Routine 4:46 PM EDT POTASSIUM Routine 11/02/2023 4:[address] CHEST WO CONTRAST (GENERIC) Routine 11/02/2023 4:08 PM EDT POC, GLUCOSE Routine 11/02/2023 2:36 PM EDT LOWER RESPIRATORY CULTURE Routine 11/02/2023 12:54 PM EDT POC, GLUCOSE Routine 11/02/2023 12:52 PM EDT BLOOD GAS ARTERIAL POC Routine 11:48 AM EDT BASIC METABOLIC PANEL Routine 11/02/2023 11:46 AM EDT POC, GLUCOSE Routine 11/02/2023 10:10 AM EDT XR CHEST ONE VIEW STAT 11/02/2023 8:1 6 AM EDT BLOOD GAS ARTERIAL POC Routine 7:52 AM EDT BLOOD GAS ARTERIAL POC Routine 6:35 AM EDT POC, GLUCOSE Routine 11/02/2023 6:34 AM EDT POC, GLUCOSE Routine 11/02/2023 5:30 AM EDT POC, GLUCOSE Routine 11/02/2023 4:02 AM EDT POC, GLUCOSE Routine 11/02/2023 2:10 AM EDT BASIC METABOLIC PANEL Routine 11/02/2023 12:02 AM EDT CBC (WITH DIFF) Routine 11/02/2023 12:02 AM EDT POC, GLUCOSE Routine 11/01/2023 11:54 PM EDT POC, GLUCOSE Routine 11/01/2023 10:01 PM EDT POC, GLUCOSE Routine 11/01/2023 8:57 PM EDT POC, GLUCOSE Routine 11/01/2023 7:42 PM EDT POC, GLUCOSE Routine 11/01/2023 6:20 PM EDT POC, GLUCOSE Routine 11/01/2023 5:34 PM EDT BLOOD GAS ARTERIAL POC Routine 4 4:18 PM EDT POTASSIUM STAT 11/01/2023 4:16 PM EDT POC, GLUCOSE Routine 11/01/2023 3:04 PM EDT BLOOD GAS ARTERIAL POC Routine 4 1:58 PM EDT POC, GLUCOSE Routine 11/01/2023 1:02 PM EDT BLOOD GAS ARTERIAL POC Routine 11:36 AM EDT BASIC METABOLIC PANEL STAT 11/01/2023 11:34 AM EDT POC, GLUCOSE Routine 11/01/2023 10:12 AM EDT POC, GLUCOSE Routine 11/01/2023 9:19 AM EDT BLOOD GAS ARTERIAL POC Routine 8:06 AM EDT BETA HYDROXYBUTYRATE Add-On 11/01/2023 8:03 AM EDT POTASSIUM STAT 11/01/2023 8:03 AM EDT POC, GLUCOSE Routine 11/01/2023 7:02 AM EDT POC, GLUCOSE Routine 11/01/2023 5:59 AM EDT POC, GLUCOSE Routine 11/01/2023 5:03 AM EDT BLOOD GAS ARTERIAL POC Routine 4:07 AM EDT POTASSIUM STAT 11/01/2023 4:05 AM EDT POC, GLUCOSE Routine 11/01/2023 2:59 AM EDT CBC (WITH DIFF) Routine 11/01/2023 2:36 AM EDT BASIC METABOLIC PANEL Routine 11/01/2023 2:36 AM EDT POC, GLUCOSE Routine 11/01/2023 2:01 AM EDT POC, GLUCOSE Routine 11/01/2023 1:38 AM EDT POC, GLUCOSE Routine 11/01/2023 1:03 AM EDT POC, GLUCOSE Routine 10/31/2023 11:51 PM EDT POTASSIUM STAT 10/31/2023 11:50 PM EDT BLOOD GAS ARTERIAL POC Routine 11:36 PM EDT POC, GLUCOSE Routine 10/31/2023 11:00 PM EDT POC, GLUCOSE Routine 10/31/2023 10:04 PM EDT POC, GLUCOSE Routine 10/31/2023 9:11 PM EDT SCAN DOC: TELEMETRY STRIPS 10/31/2023 8:58 PM EDT BLOOD GAS ARTERIAL POC Routine 7:58 PM EDT POTASSIUM STAT 10/31/2023 7:58 PM EDT POC, GLUCOSE Routine 10/31/2023 6:55 PM EDT POC, GLUCOSE Routine 10/31/2023 6:05 PM EDT POC, GLUCOSE Routine 10/31/2023 5:10 PM EDT BLOOD GAS ARTERIAL POC Routine 3:57 PM EDT POTASSIUM Routine 10/31/2023 3:50 PM EDT POC, GLUCOSE Routine 10/31/2023 3:10 PM EDT POC, GLUCOSE Routine 10/31/2023 2:26 PM EDT POC, GLUCOSE Routine 10/31/2023 1:14 PM EDT BLOOD GAS ARTERIAL POC Routine 11:52 AM EDT COMPREHENSIVE METABOLIC PANEL Timed 10/31/2023 11:48 AM EDT POC, GLUCOSE Routine 10/31/2023 10:15 AM EDT LUNG RECRUITMENT MANEUVER Routine 10/31/2023 9:48 AM EDT BLOOD GAS ARTERIAL POC Routine 9:04 AM EDT POTASSIUM Routine 10/31/2023 8:53 AM EDT POC, GLUCOSE Routine 10/31/2023 7:54 AM EDT POC, GLUCOSE Routine 10/31/2023 6:53 AM EDT BLOOD GAS ARTERIAL POC Routine 5:56 AM EDT POC, GLUCOSE Routine 10/31/2023 4:59 AM EDT POC, GLUCOSE Routine 10/31/2023 3:57 AM EDT COOX, POC Routine 10/31/2023 3:01 AM EDT BLOOD GAS ARTERIAL POC Routine 2:57 AM EDT XR CHEST ONE VIEW Routine 10/31/2023 2:4 3 AM EDT BLOOD GAS ARTERIAL POC Routine 1:38 AM EDT HEMOGLOBIN A1C Add-On 10/31/2023 1:37 AM EDT SCAN, PERIPHERAL BLOOD Routine 1:37 AM EDT BASIC METABOLIC PANEL Routine 10/31/2023 1:37 AM EDT CBC (WITH DIFF) Routine 10/31/2023 1:37 AM EDT LIPOPROTEIN A Routine 10/31/2023 1:37 AM EDT TROPONIN - SINGLE Timed 10/31/2023 1:3 7 AM EDT POC, GLUCOSE Routine 10/31/2023 1:00 AM EDT POC, GLUCOSE Routine 10/30/2023 11:56 PM EDT POC, GLUCOSE Routine 10/30/2023 11:02 PM EDT POC, GLUCOSE Routine 10/30/2023 10:36 PM EDT POC, GLUCOSE Routine 10/30/2023 10:06 PM EDT BLOOD GAS ARTERIAL POC Routine 9:30 PM EDT POC, GLUCOSE Routine 10/30/2023 8:54 PM EDT POTASSIUM STAT 10/30/2023 8:50 PM EDT POC, GLUCOSE Routine 10/30/2023 8:04 PM EDT POC, GLUCOSE Routine 10/30/2023 7:34 PM EDT POC, GLUCOSE Routine 10/30/2023 6:11 PM EDT BLOOD GAS ARTERIAL POC Routine 4 5:03 PM EDT HEMOGLOBIN Routine 10/30/2023 4:57 PM EDT POTASSIUM Routine 10/30/2023 4:57 PM EDT POC, GLUCOSE Routine 10/30/2023 3:10 PM EDT COOX, POC Routine 10/30/2023 2:30 PM EDT BLOOD GAS ARTERIAL POC Routine 4 2:27 PM EDT BLOOD GAS ARTERIAL POC Routine 4 1:19 PM EDT XR CHEST ONE VIEW STAT 10/30/2023 1:1 8 PM EDT EKG 12-LEAD STAT 10/30/2023 1:07 PM EDT S/P CABG x 3 PREPARE RBC STAT 10/30/2023 12:48 PM EDT Coronary artery disease involving [place] coronary artery of [place] heart without angina pectoris BLOOD GAS ARTERIAL POC Routine 11:55 AM EDT BLOOD GAS ARTERIAL POC Routine 11:03 AM EDT BLOOD GAS ARTERIAL POC Routine 10:30 AM EDT PLATELET COUNT PERFORMABLE STAT 10/30/2023 10:14 AM EDT HEMOGLOBIN AND HEMATOCRIT, BLOOD STAT 10/30/2023 10:14 AM EDT HC PARTIAL THROMBOPLASTIN TIME STAT 10/30/2023 10:14 AM EDT PROTHROMBIN TIME STAT 10/30/2023 10:1 4 AM EDT FIBRINOGEN STAT 10/30/2023 10:14 AM EDT PLATELET COUNT STAT 10/30/2023 10:14 AM EDT BLOOD GAS VENOUS POC Routine 10/30/2023 10:09 AM EDT BLOOD GAS ARTERIAL POC Routine 10:07 AM EDT BLOOD GAS ARTERIAL POC Routine 8:44 AM EDT PLATELET COUNT PERFORMABLE STAT 10/30/2023 8:24 AM EDT HEMOGLOBIN AND HEMATOCRIT, BLOOD STAT 10/30/2023 8:24 AM EDT FIBRINOGEN STAT 10/30/2023 8:24 AM EDT PLATELET COUNT STAT 10/30/2023 8:24 AM EDT Cabg, Artery-Vein, Two ([id number]) 10/30/2023 7:36 AM EDT [facility] Cabg, Arterial, Single ([id number]) 10/30/2023 7:36 AM EDT [facility] Endoscopy W/Video-Asst Vein [place], Cabg ([id number]) 10/30/2023 7:36 AM EDT [facility] COMPREHENSIVE METABOLIC PANEL Routine 10/30/2023 6:57 AM EDT 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 [facility] Signature Glucometer, POC 289(H) 65 - 199 mg/dL 12/21/2023 11:21 AM EDT [facility] Comment:Supplemental ranges: <140 mg/dL before meals <180 mg/dL all other times of the day. Blood CAPILLARY BLOOD / Unknown 12/21/2023 11:21 AM EDT 12/21/2023 11:22 AM EDT Bailey Meadows MD POINT OF CARE TEST O RDERABLES Performing Organization Address [facility]/ZIP Co de Phone Number [facility] [place] [address] * Scan Doc: Telemetry Strips (12/21/2023 7:28 AM EDT) Only the most recent of39 resultswithin the time period is included. Narrative 12/21/2023 7:28 AM EDT Ordered by an unspecified provider. Scanning Provider MEDIA MGR SCAN EXT O RDR/RSLT * (ABNORMAL) PTH (12/21/2023 4:16 AM EDT) Only the most recent of3 resultswithin the time period is included. Parathyroid Hormone 87(H) 15 - 65 pg/mL 12/21/2023 5:13 AM EDT [facility] Blood VENOUS BLOOD SPECIMEN / Unknown IP Care Team Draw / Unknown 12/21/2023 4:16 AM EDT 12/21/2023 4:44 AM EDT Nerissa Cuellar SEISMOGRAPH OPERATOR CHEMISTRY ORDERAB LES Performing Organization Address [facility] Co de Phone Number [facility] [place] [address] * (ABNORMAL) Iron and TIBC (12/21/2023 4:16 AM EDT) Only the most recent of4 resultswithin the time period is included. Iron 22(L) 45 - 160 mcg/dL 12/21/2023 5:15 AM EDT [facility] TIBC 227(L) 250 - 450 mcg/dL 12/21/2023 5:15 AM EDT [facility] Iron Saturation 10(L) 20 - 50 % 5:15 AM EDT [facility] Blood VENOUS BLOOD SPECIMEN / Unknown IP Care Team Draw / Unknown 12/21/2023 4:16 AM EDT 12/21/2023 4:44 AM EDT Nerissa Cuellar SEISMOGRAPH OPERATOR CHEMISTRY ORDERAB LES [facility] [place] [address] * (ABNORMAL) CBC (with Diff) (12/21/2023 4:16 AM EDT) Only the most recent of31 resultswithin the time period is included. White Blood Cell 9.18 4.00 - 9.50 x10(3)/mc L 12/21/2023 4:53 AM EDT [facility] Red Blood Cell 4.06(L) 4.58 - 5.54 x10(6)/mc L 12/21/2023 4:53 AM EDT [facility] Hemoglobin 8.7(L) 13.7 - 16.5 g/dL 12/21/2023 4:53 AM EDT [facility] Hematocrit 29.3(L) 40.5 - 48.5 % 12/21/2023 4:53 AM EDT [facility] Mean Cell Volume 72.2(L) 82.9 - 93.1 fL 12/21/2023 4:53 AM EDT [facility] Mean Cell Hemoglobin 21.4(L) 27.5 - 32.1 pg 12/21/2023 4:53 AM EDT [facility] Mean Cell Hemoglobin Concentration 29.7(L) 32.0 - 35.7 g/dL 12/21/2023 4:53 AM EDT [facility] Platelet 339 145 - 357 x10(3)/mc L 12/21/2023 4:53 AM EDT [facility] Mean Platelet Volume 10.2 7.6 - 12.9 fL 12/21/2023 4:53 AM EDT [facility] RDW Standard Deviation 53.5(H) 36.0 - 45.0 fL 12/21/2023 4:53 AM EDT [facility] RDW coefficient of variation 20.6(H) 11.4 - 13.8 % 12/21/2023 4:53 AM [facility] NRBC% auto 0.0 % 12/21/2023 4:53 AM [facility] NRBC Absolute <0.01 <0.01 x10(3)/mc L 12/21/2023 4:53 AM [facility] Neutrophil % 76.3 % 12/21/2023 4:53 AM [facility] Neutrophil Absolute (ANC) - Automated 7.00(H) 1.70 - 6.10 x10(3)/mc L 12/21/2023 4:53 AM [facility] Lymph % 9.8 % 12/21/2023 4:53 AM [facility] Lymph Absolute 0.90 0.90 - 3.20 x10(3)/mc L 12/21/2023 4:53 AM [facility] Monocyte % 11.0 % 12/21/2023 4:53 AM [facility] Monocyte Absolute 1.01(H) 0.30 - 0.90 x10(3)/mc L 12/21/2023 4:53 AM [facility] Eos % 2.0 % 12/21/2023 4:53 AM [facility] Eos Absolute 0.18 0.00 - 0.40 x10(3)/mc L 12/21/2023 4:53 AM [facility] Basophil % 0.5 % 12/21/2023 4:53 AM [facility] Baso Absolute 0.05 0.00 - 0.10 x10(3)/mc L 12/21/2023 4:53 AM [facility] [facility] Immature Gran % 0.4 % 4:53 AM [facility] Immature Gran Absolute 0.04 0.00 - 0.04 x10(3)/mc L 12/21/2023 4:53 AM [facility] Blood VENOUS BLOOD SPECIMEN / Unknown IP Care Team Draw / Unknown 12/21/2023 4:16 AM EDT 12/21/2023 4:44 AM EDT Loi Mustafa MD HEMATOLOGY ORDERAB LES Performing Organization Address City/[facility]/ZIP Co de Phone Number [facility] [place] [place] [address] * Phosphorus (12/21/2023 4:16 AM EDT) Only the most recent of30 resultswithin the time period is included. Phosphorus 3.5 2.5 - 4.5 mg/dL 12/21/2023 5:15 AM EDT [facility] Blood VENOUS BLOOD SPECIMEN / Unknown IP Care Team Draw / Unknown 12/21/2023 4:16 AM EDT 12/21/2023 4:44 AM EDT Bailey Meadows MD CHEMISTRY ORDERABLES Performing Organization Address [facility] Co de Phone Number [facility] [place] [address] * Magnesium (12/21/2023 4:16 AM EDT) Only the most recent of28 resultswithin the time period is included. Magnesium 0.91 0.69 - 1.07 mMol/L 12/21/2023 5:15 AM EDT [facility] Blood VENOUS BLOOD SPECIMEN / Unknown IP Care Team Draw / Unknown 12/21/2023 4:16 AM EDT 12/21/2023 4:44 AM EDT Bailey Meadows MD CHEMISTRY ORDERABLES Performing Organization Address City/[facility] Co de Phone Number [facility] [place] [address] * (ABNORMAL) Ferritin (12/21/2023 4:16 AM EDT) Only the most recent of4 resultswithin the time period is included. Ferritin 707(H) 31 - 409 ng/ml 12/21/2023 5:21 AM EDT [facility] Blood VENOUS BLOOD SPECIMEN / Unknown IP Care Team Draw / Unknown 12/21/2023 4:16 AM EDT 12/21/2023 4:44 AM EDT Nerissa Cuellar SEISMOGRAPH OPERATOR CHEMISTRY ORDERAB LES [facility] [place] [address] * (ABNORMAL) Basic Metabolic Panel (12/21/2023 4:16 AM EDT) Only the most recent of45 resultswithin the time period is included. Glucose 201(H) 65 - 199 mg/dL 12/21/2023 5:34 AM EDT [facility] Comment:Glucose Concentratio n >=200 mg/dL plus symptoms is consistent with Diabetes Mellitus. Blood Urea Nitrogen 37(H) 10 - 20 mg/dL 12/21/2023 5:34 AM EDT [facility] Creatinine 3.97(H) 0.80 - 1.50 mg/dL 12/21/2023 5:34 AM EDT [facility] Sodium 135 135 - 145 mMol/L 12/21/2023 5:34 AM EDT [facility] Potassium 4.3 3.5 - 5.0 mMol/L 12/21/2023 5:34 AM EDT [facility] Chloride 97(L) 98 - 107 mMol/L 12/21/2023 5:34 AM EDT [facility] Carbon Dioxide 27 22 - 31 mMol/L 12/21/2023 5:34 AM [facility] Anion Gap 11 5 - 15 mMol/L 12/21/2023 5:34 AM EDT [facility] Calcium 9.0 8.5 - 10.5 mg/dL 12/21/2023 5:34 AM EDT [facility] Est Glomerular Filtration Rate - Male 18 mL/min/1. 73 m?? 12/21/2023 5:34 AM EDT [facility] Comment: This patient's estimated GFR was calculated using the 2020 CKD-EPI equation. The estimated GFR can vary from the measured GFR by up to 30% in the absence of rapidly changing kidney function. Assessment of the estimated GFR is not appropriate when creatinine concentrations are rapidly changing. For clinical situations in which a more precise estimate of GFR is necessary, consider alternative methods of GFR estimation such as a 24-hour urine creatinine clearance. Assignment of CKD stage 1 - 5 for patients with an eGFR near the transition point between stages may be based on clinical assessment of muscle mass and symptoms in addition to eGFR. Link: eGFR Calculator [employer] Blood VENOUS BLOOD SPECIMEN / Unknown IP Care Team Draw / Unknown 12/21/2023 4:16 AM EDT 12/21/2023 4:44 AM EDT Loi Mustafa MD CHEMISTRY ORDERABL ES Performing Organization Address City/[facility]/ZIP Co de Phone Number [facility] [place] [address] * (ABNORMAL) Hemoglobin and Hematocrit, blood (12/18/2023 1:31 PM EDT) Only the most recent of3 resultswithin the time period is included. Hemoglobin 8.2(L) 13.7 - 16.5 g/dL 12/18/2023 1:40 PM EDT [facility] Hematocrit 28.0(L) 40.5 - 48.5 % 12/18/2023 1:40 PM EDT [facility] Blood VENOUS BLOOD SPECIMEN / Unknown IP Care Team Draw / Unknown 12/18/2023 1:31 PM EDT 12/18/2023 1:35 PM EDT Loi Mustafa MD HEMATOLOGY ORDERAB LES Performing Organization Address City/[facility]/ZIP Co de Phone Number [facility] [place] [address] * XR Chest One View (12/17/2023 5:34 AM EDT) Only the most recent of8 resultswithin the time period is included. WORKSTATION ID [id number] RAD Anatomical Region Laterality Modality Chest N/A Digital Radiogra phy Impressions 12/17/2023 6:01 AM EDT 1. ??No pneumothorax. 2. ??Pulmonary edema. 3. ??Cannot distinguish atelectasis from multi lobar left lung consolidation. 4. ??Mild pinching of the very proximal catheter may reflect suture pressure. Thank you for letting us participate in the care of this patient. ??If you are a health care provider and have any questions regarding this report, please contact the number below. ??For patients who have questions please contact the health senior care specialist that requested your imaging first. ? Narrative 12/17/2023 6:01 AM EDT EXAMINATION: XR CHEST ONE VIEW CLINICAL HISTORY: pain at chest port site TECHNIQUE: 1 view of the chest COMPARISON: 2023 FINDINGS: Interval placement of a tunneled right internal jugular hemodialysis catheter with tip satisfactorily positioned at the right atrium. Mild pinching of the very proximal catheter may reflect suture pressure. Pulmonary vascular redistribution and bronchovascular haziness. Confluent left lung opacities obscuring left cardiac and diaphragmatic contours. Low lung volumes. No pneumothorax. Procedure Note Lidia Khanna MD - 12/17/2023 EXAMINATION: XR CHEST ONE VIEW CLINICAL HISTORY: pain at chest port site TECHNIQUE: 1 view of the chest COMPARISON: 2023 FINDINGS: Interval placement of a tunneled right internal jugular hemodialysiscatheter with tip satisfactorily positioned at the right atrium. Mild pinching ofthe very proximal catheter may reflect suture pressure. Pulmonary vascular redistribution and bronchovascular haziness. Confluent left lungopacities obscuring left cardiac and diaphragmatic contours. Low lung volumes. No pneumothorax. IMPRESSION 1. No pneumothorax. 2. Pulmonary edema. 3. Cannot distinguish atelectasis from multi lobar left lungconsolidation. 4. Mild pinching of the very proximal catheter may reflect suturepressure. Thank you for letting us participate in the care of this patient. If youare a health care provider and have any questions regarding this report,please contact the number below. For patients who have questions please contactthe health senior care specialist that requested your imaging first. Bailey Meadows MD IMG DX ORDERABLES * CT Chest wo Contrast (Generic) (12/13/2023 5:12 PM EDT) Only the most recent of2 resultswithin the time period is included. WORKSTATION ID [id number] RAD Anatomical Region Laterality Modality Chest Computed Tomogra phy Impressions 12/13/2023 5:52 PM EDT 1. ??Unchanged small left and trace right pleural effusions. 2. ??Moderate left and mild right lower lobe subsegmental atelectasis. 3. ??Nonspecific tree-in-bud opacities in the posterior right middle lobe, possible early infectious/inflammatory pulmonary process. 4. ??Right jugular central venous catheter tip within the right atrium. 5. ??Soft tissue edema within the midline chest subcutaneous fat and posterior to the sternum, likely postsurgical change following sternotomy. 6. ??No subcutaneous hematoma. Thank you for letting us participate in the care of this patient. ??If you are a health care provider and have any questions regarding this report, please contact the number below. ??For patients who have questions please contact the health senior care specialist that requested your imaging first. ? Narrative 12/13/2023 5:52 PM EDT EXAMINATION: CT CHEST WO CONTRAST (GENERIC) CLINICAL HISTORY: post-procedural bleeding. Hematoma and line location following line placement. TECHNIQUE: Helical CT of the chest without intravenous contrast administration. Thin-section reconstructions as well as coronal and sagittal reformatted images were generated. COMPARISON: Chest radiograph 2023. CT chest from outside institution 2023 FINDINGS: Pulmonary parenchyma: Moderate subsegmental atelectasis within the posterior left lung base with mild subsegmental atelectasis in the right lower lobe. Tree-in-bud opacities within the posterior aspect of the right middle lobe (series 4 image 152). Airways: The large airways are widely patent. No bronchiectasis. No bronchial wall thickening. Pleura: No pneumothorax. Unchanged small left and trace right pleural effusions layer dependently. Lymph nodes: No lymphadenopathy. Heart and vasculature: Mild fur-chamber cardiomegaly. There is extensive coronary artery atherosclerotic disease. Right jugular central venous catheter tip terminates within the right atrium . No pericardial effusion. Normal caliber of the thoracic aorta with atherosclerotic disease present. Other mediastinal structures: Normal esophagus. There is unchanged fat stranding posterior to the sternum, likely postsurgical change. No mediastinal collection. No pneumomediastinum. Lower neck and chest wall subcutaneous tissues: Fat stranding/edema within the midline chest subcutaneous fat consistent with recent sternotomy. No subcutaneous collection. Additional mild fat stranding within the right upper chest wall subcutaneous fat at site of right jugular central venous catheter insertion. No subcutaneous hematoma. Upper abdomen: No significant findings. Skeletal structures: Subacute appearing fractures of anterior left second third fourth fifth sixth ribs. Status post median sternotomy with cables present. No acute osseous findings. Procedure Note Minesh Oconnor MD - 12/13/2023 EXAMINATION: CT CHEST WO CONTRAST (GENERIC) CLINICAL HISTORY: post-procedural bleeding. Hematoma and line locationfollowing line placement. TECHNIQUE: Helical CT of the chest without intravenous contrastadministration. Thin-section reconstructions as well as coronal and sagittal reformattedimages were generated. COMPARISON: Chest radiograph 2023. CT chest from outsideinstitution 2023 FINDINGS: Pulmonary parenchyma: Moderate subsegmental atelectasis within theposterior left lung base with mild subsegmental atelectasis in the right lowerlobe. Tree-in-bud opacities within the posterior aspect of the right middlelobe (series 4 image 152). Airways: The large airways are widely patent. No bronchiectasis. Nobronchial wall thickening. Pleura: No pneumothorax. Unchanged small left and trace right pleuraleffusions layer dependently. Lymph nodes: No lymphadenopathy. Heart and vasculature: Mild fur-chamber cardiomegaly. There is extensive coronary artery atherosclerotic disease. Right jugular central venouscatheter tip terminates within the right atrium . No pericardial effusion. Normalcaliber of the thoracic aorta with atherosclerotic disease present. Other mediastinal structures: Normal esophagus. There is unchanged fatstranding posterior to the sternum, likely postsurgical change. No mediastinalcollection. No pneumomediastinum. Lower neck and chest wall subcutaneous tissues: Fat stranding/edema withinthe midline chest subcutaneous fat consistent with recent sternotomy. No subcutaneous collection. Additional mild fat stranding within the rightupper chest wall subcutaneous fat at site of right jugular central venouscatheter insertion. No subcutaneous hematoma. Upper abdomen: No significant findings. Skeletal structures: Subacute appearing fractures of anterior left secondthird fourth fifth sixth ribs. Status post median sternotomy with cablespresent. No acute osseous findings. IMPRESSION 1. Unchanged small left and trace right pleural effusions. 2. Moderate left and mild right lower lobe subsegmental atelectasis. 3. Nonspecific tree-in-bud opacities in the posterior right middlelobe, possible early infectious/inflammatory pulmonary process. 4. Right jugular central venous catheter tip within the right atrium. 5. Soft tissue edema within the midline chest subcutaneous fat andposterior to the sternum, likely postsurgical change following sternotomy. 6. No subcutaneous hematoma. Thank you for letting us participate in the care of this patient. If youare a health care provider and have any questions regarding this report,please contact the number below. For patients who have questions please contactthe health senior care specialist that requested your imaging first. Federico Farley DO IMG CT ORDERABLES * Electrolytes panel (12/12/2023 4:07 PM EDT) Only the most recent of7 resultswithin the time period is included. Sodium 139 135 - 145 mMol/L 12/12/2023 5:05 PM EDT [facility] Potassium 4.0 3.5 - 5.0 mMol/L 12/12/2023 5:05 PM EDT [facility] Chloride 103 98 - 107 mMol/L 12/12/2023 5:05 PM EDT [facility] Carbon Dioxide 24 22 - 31 mMol/L 12/12/2023 5:05 PM EDT [facility] Anion Gap 12 5 - 15 mMol/L 12/12/2023 5:05 PM EDT [facility] Blood VENOUS BLOOD SPECIMEN / Unknown IP Care Team Draw / Unknown 12/12/2023 4:07 PM EDT 12/12/2023 4:16 PM EDT Loi Mustafa MD CHEMISTRY ORDERABL ES Performing Organization Address City/[facility]/ZIP Co de Phone Number [facility] [place] [address] * Protein, Serum Electrophoresis (12/11/2023 4:24 PM EDT) Blood VENOUS BLOOD SPECIMEN / Unknown IP Care Team Draw / Unknown 12/11/2023 4:24 PM EDT 12/11/2023 4:39 PM EDT Loi Mustafa MD URINE ORDERABLES [facility] [place] [address] * PEP, Serum (12/11/2023 4:24 PM EDT) Pathologist [facility] Protein, Total 6.6 6.1 - 8.0 g/dL 12/12/2023 2:47 PM EDT [facility] Albumin Electrophoresis 3.74 3.20 - 5.20 g/dL 12/12/2023 2:47 PM EDT [facility] Alpha 1 Globulin 0.20 0.10 - 0.30 g/dL 12/12/2023 2:47 PM EDT [facility] Alpha 2 Globulin 0.90 0.40 - 0.90 g/dL 12/12/2023 2:47 PM EDT [facility] Beta Globulin 0.83 0.50 - 1.00 g/dL 12/12/2023 2:47 PM EDT [facility] Gamma Globulin 0.94 0.50 - 1.30 g/dL 12/12/2023 2:47 PM EDT [facility] M1 Band 12/12/2023 2:47 PM EDT [facility] Comment:Serum protein electr ophoresis shows a band that is a possible paraprotein. Immunofixation and quantitative immunoglobulin testing will be performed on this sample to verify that it is a monoclonal immunoglobulin. Blood VENOUS BLOOD SPECIMEN / Unknown IP Care Team Draw / Unknown 12/11/2023 4:24 PM EDT 12/11/2023 4:39 PM EDT Loi Mustafa MD URINE ORDERABLES [facility] [place] [address] * (ABNORMAL) Free Light Chains, Serum (12/11/2023 4:24 PM EDT) Pathologist [facility] [place] Free Light Chain 10.88(H) 0.72 - 2.75 mg/dL 12/12/2023 9:21 AM EDT [facility] Lambda Free Light Chain 5.91(H) 0.57 - 2.15 mg/dL 12/12/2023 9:21 AM EDT [facility] [place]/Lambda FLC Ratio 1.8409 0.4000 - 2.5800 12/12/2023 9:21 AM EDT [facility] Blood VENOUS BLOOD SPECIMEN / Unknown IP Care Team Draw / Unknown 12/11/2023 4:24 PM EDT 12/11/2023 4:39 PM EDT Loi Mustafa MD CHEMISTRY ORDERABL ES Performing Organization Address City/[facility]/ZIP Co de Phone Number [facility] [place] [address] * Immunoglobulins, Quantitative (12/11/2023 4:24 PM EDT) IgG 1,119 700 - 1,600 mg/dL 12/12/2023 3:54 PM EDT [facility] IgA 343 70 - 400 mg/dL 12/12/2023 3:54 PM EDT [facility] IgM 77 40 - 230 mg/dL 12/12/2023 3:54 PM EDT [facility] Blood VENOUS BLOOD SPECIMEN / Unknown IP Care Team Draw / Unknown 12/11/2023 4:24 PM EDT 12/11/2023 4:39 PM EDT Loi Mustafa MD CHEMISTRY ORDERABL ES Performing Organization Address City/[facility]/ZIP Co de Phone Number [facility] [place] [address] * Immunofixation Electrophoresis, Serum (12/11/2023 4:24 PM EDT) Immunofixation Interpretation, Serum Faint IgG kappa and a faint IgA kappa restrictions seen. Clinical significance of this finding is not clear. Suggest repeat study in 6-12 months. 12/15/2023 9:32 AM EDT [facility] Signing Pathologist Jozef Jha DO 12/15/2023 9:32 AM EDT [facility] Blood VENOUS BLOOD SPECIMEN / Unknown IP Care Team Draw / Unknown 12/11/2023 4:24 PM EDT 12/11/2023 4:39 PM EDT Loi Mustafa MD CHEMISTRY ORDERABL ES Performing Organization Address City/[facility]/ZIP Co de Phone Number [facility] [place] [address] * Hepatitis B Surface Antigen (12/11/2023 4:24 PM EDT) Only the most recent of2 resultswithin the time period is included. Hepatitis B Surface Antigen Negative Negative 12/11/2023 5:48 PM EDT [facility] Blood VENOUS BLOOD SPECIMEN / Unknown IP Care Team Draw / Unknown 12/11/2023 4:24 PM EDT 12/11/2023 4:39 PM EDT Loi Mustafa MD CHEMISTRY ORDERABL ES Performing Organization Address City/[facility]/ZIP Co de Phone Number [facility] [place] [address] * C3 Complement (12/11/2023 4:24 PM EDT) Complement C3 129 90 - 180 mg/dL 12/11/2023 5:22 PM EDT [facility] Blood VENOUS BLOOD SPECIMEN / Unknown IP Care Team Draw / Unknown 12/11/2023 4:24 PM EDT 12/11/2023 4:39 PM EDT Loi Mustafa MD CHEMISTRY ORDERABL ES Performing Organization Address City/[facility]/ZIP Co de Phone Number [facility] [place] [address] * C4 Complement (12/11/2023 4:24 PM EDT) Complement C4 22 10 - 40 mg/dL 12/11/2023 5:22 PM EDT [facility] Blood VENOUS BLOOD SPECIMEN / Unknown IP Care Team Draw / Unknown 12/11/2023 4:24 PM EDT 12/11/2023 4:39 PM EDT Loi Mustafa MD CHEMISTRY ORDERABL ES [facility] [place] [address] * IR Dialysis Access - Tunneled Line (12/11/2023 3:55 PM EDT) Anatomical Region Laterality Modality Abdomen X-Ray Angiograph y Narrative 12/11/2023 5:19 PM EDT Interventional Radiology Procedure Note Procedure: Tunneled Hemodialysis Catheter Placement ?? Clinical Indication: 47 year old male with hx of STMEI s/p PCI in 2018, s/p CABG on 11/13 with DONAL on CKD with need for durable penitentiary central venous access for dialysis Informed Consent: After discussing risks (including infection, trauma / damage to surrounding structures, hemorrhage, non-success, amongst others), and benefits of the procedure, the patient consented to the procedure. Monitoring and Sedation Details: Due to the painful nature of the procedure, patient received split doses of intravenous fentanyl from the IR nurse while pulse, pressure, end tidal CO2 parameters and oxygen saturation were continuously monitored. Technique: A standard time-out was conducted just before the start of the procedure to verify all swanson aspects; including the correct patient and planned procedure, procedure location, informed consent, and all relevant critical information, all of which were correct. The patient was positioned supine on the procedure table. ??The right neck was cleaned and prepped in typical sterile fashion; maximal sterile barrier technique was used throughout. ?? The right internal jugular vein was sonographically evaluated and determined to be patent. A permanent image was stored. Local anesthetic was administered. The vein accessed via real-time ultrasound and micropuncture set with 21 gauge needle. A 0.018 wire was advanced into the superior vena cava. The remainder of the procedure was performed with fluoroscopic guidance. A 4 Fr introducer sheath was placed and the wire exchanged for a 0.035 J wire. The wire was advanced into the inferior vena cava. Lidocaine with epinephrine was then infiltrated subcutaneously in a caudal-lateral direction from the venotomy. A 1 cm incision was made on the anterior chest. A tunneler was used to advance the catheter subcutaneously to the venous access site. The venotomy was dilated in serial fashion and a 16 Fr peel-away sheath advanced over the wire. The wire and inner obturator were removed and the catheter advanced into the superior vena cava. Catheter position was confirmed and a static image stored. Both ports flushed and aspirated well (>5 ml/sec). Each lumen was instilled with a heparin solution and a sterile dressing applied. Medications: 1% lidocaine <10 ml subcutaneously, 2% lidocaine with epinephrine <20 ml subcutaneously, fentanyl 50 mcg IV, zofran 4 mg IV Contrast: None Fluoroscopic time: 2.1 minutes, 20.1 mGray Estimated blood loss: <5 ml Complications: ??No immediate Impression: Insertion of right internal jugular, Medcomp Hemo-Flow 14.5 F 28 cm step-tip, cuffed hemodialysis catheter. The catheter may be used immediately. Plan: Patient to IR recovery unit, may discharge to floor when meets criteria. Resident / Fellow: Vu Newman DO Attending: Federico Farley DO I, Dr. Farley, was present throughout the procedure. Loi Mustafa MD IMG IR ORDERABLES * (ABNORMAL) Blood Gas, Venous (12/11/2023 9:54 AM EDT) Only the most recent of2 resultswithin the time period is included. pH, Venous 7.12(LLL) 7.32 - 7.42 12/11/2023 10:12 AM EDT [facility] Comment:Called to and read b ack by krysta moise 12/11/23 at 1012 nb PCO2, Venous 62(HHH) 38 - 58 mmHg 12/11/2023 10:12 AM EDT [facility] Comment:Called to and read b ack by krysta moise 12/11/23 at 1012 nb PO2, Venous 44 16 - 65 mmHg 12/11/2023 10:12 AM EDT [facility] Bicarbonate, Venous 19.7(L) 22 - 31 mmol/L 12/11/2023 10:12 AM EDT [facility] Base Excess, Venous -9.7(L) 1.9 - 4.5 mmol/L 12/11/2023 10:12 AM [facility] Hemoglobin, Venous 9.3(L) 13.7 - 16.5 g/dL 12/11/2023 10:12 AM [facility] Oxyhemoglobin, Venous 73.3 % 12/11/2023 10:12 AM [facility] Carboxyhemoglobin , Venous 0.2 % 12/11/2023 10:12 AM [facility] Comment: Nonsmokers: 0.5-1.5% COHB ?? Smokers: Variable ??but usually less than 10% ?? Toxic: 20-30% COHB ?? Lethal: Greater than 60% COHB Methemoglobin, Venous 0.2 <=1.5 % 12/11/2023 10:12 AM [facility] Sodium, Venous 134(L) 135 - 145 mmol/L 12/11/2023 10:12 AM [facility] Chloride, Venous 104 98 - 107 mmol/L 12/11/2023 10:12 AM [facility] Potassium, Venous 6.8(HHH) 3.5 - 5.0 mmol/L 12/11/2023 10:12 AM [facility] Comment:Called to and read b ack by krysta moise 12/11/23 at 1012 nb Ionized Calcium, Venous 1.21 1.15 - 1.33 mmol/L 12/11/2023 10:12 AM [facility] Glucose, Venous 240(H) 65 - 199 mg/dL 12/11/2023 10:12 AM [facility] Comment:Glucose Concentratio n >=200 mg/dL plus symptoms is consistent with Diabetes Mellitus. Lactate, Venous 1.2 0.5 - 2.2 mmol/L 12/11/2023 10:12 AM [facility] Blood Gas Source Venous 12/11/19 10:12 AM [facility] Blood VENOUS BLOOD SPECIMEN / Unknown IP Care Team Draw / Unknown 12/11/2023 9:54 AM EDT 12/11/2023 10:03 AM EDT Loi Mustafa MD CHEMISTRY ORDERABL ES [facility] [place] [place] [address] * ECHO COMPLETE W CONTRAST (12/11/2023 9:04 AM EDT) Anatomical Region Laterality Modality Cardiac Other 12/11/2023 7:05 AM EDT Narrative 12/11/2023 10:16 AM EDT [address] [place] [id number] ? Echocardiogram Report Name: SHOSHANA RUSSOEW ?Study Date: 12/11/2023 07:05 AM : 1975 ? Height: 178 cm ? Account: [id number] Age: 48 yrs ? Weight: 132 kg Gender: Male ?BSA: 2.5 m2 Ordering Physician: STEVEN CARTWRIGHT Referring Physician: RHODA CONKLIN Performed By: Narda Lynch RDCS Reason For Study: CHF Exam Location: [facility]. Interpretation Summary Technically limited exam due to poor acoustic windows. -Wall thickness is mildly increased. Global left ventricular systolic function is probably normal. Left ventricular ejection fraction is estimated visually at 60% with inferior wall motion abnormality. . The apex and mid anterior/anterolateral wall are not visualized well enough to assess regional wall motion. -Right ventricle is mildly dilated. Right ventricular systolic function is mildly decreased. The right ventricular free wall is hypokinetic. -No significant valvular disease noted on this study. -In comparison to the post operative MORA images 10/30/2023 the global right and left ventricular function appear improved. The regional wall motion is not well visualized on today's exam. Procedure Complete-10572. Image enhancement Definity was used for left ventricular opacification. Suboptimal quality. This study is limited because of body habitus. This study is limited because the patient was unable to turn. Left Ventricle Left ventricle is of normal size. Wall thickness is mildly increased. Global left ventricular systolic function is probably normal. Left ventricular ejection fraction is estimated visually at 60%. Unable to assess regional wall motion due to technically limited images. Right Ventricle Right ventricle is mildly dilated. Right ventricular systolic function is mildly decreased. The right ventricular free wall is hypokinetic. Left Atrium The left atrium is not well visualized. The interatrial septum is not well visualized. Right Atrium The right atrium is not well visualized. Aortic Valve The aortic valve is not well visualized. There is no aortic stenosis. There is no aortic regurgitation. Mitral Valve The mitral valve is structurally and functionally normal. There is no mitral stenosis. There is mild mitral regurgitation. Tricuspid Valve The tricuspid valve is structurally and functionally normal. There is no tricuspid stenosis. There is trace tricuspid regurgitation. Pulmonic Valve The pulmonic valve is not well visualized. Great Arteries The diameter at the level of the sinuses of Valsalva is 3.1 cm. The ascending aorta is not well visualized. Venous Inferior vena cava is not well visualized. Pericardium/Pleural The pericardium appears normal. Hemodynamics Pulmonary artery hypertension could not be assessed due to inadequate tricuspid regurgitation jet. Unable to assess diastolic function. ? 2D Measurements ? Volumes ?IVSd: 1.2 cm ? SV(LVOT): 61.5 ml ?LVIDd: 4.4 cm ?LVIDs: 3.1 cm ?SI(LVOT): 25.1 ml/m2 ?LVPWd: 1.4 cm ?RWT: 0.66 {ratio} ?LV mass(C)d: 216.1 grams ?LV mass(C)dI: 88.2 grams/m2 ?Ao root diam: 3.1 cm ?Ao root diam index: 1.3 ?LVOT diam: 2.0 cm ?TAPSE_phl: 0.96 cm Doppler LV V1 VTI: 19.7 cm Ao V2 VTI: 30.8 cm Ao Max Jeff: 157.6 cm/sec Ao valve max: 9.9 mmHg Ao valve mean: 4.8 mmHg MV E max jeff: 148.3 cm/sec MV A max jeff: 63.2 cm/sec MV E/A: 2.3 MV dec time: 0.16 sec Lat Peak E' Jeff: 10.8 cm/sec E/e' (lat): 13.8 Med Peak E' Jeff: 5.7 cm/sec E/e' (med): 26.2 E/e' Average: 20.0 LYNETTE(I,D): 2.0 cm2 Dimensionless index Aov: 0.64 TR max jeff: 242.2 cm/sec I ?WMSI = 1.20 ? % Normal = 80 ?Segments ??Size X - Cannot ?2 - ?4 - ?1-2 ? small Interpret ?1 - Normal ?? Hypokinetic 3 - Akinetic Dyskinetic ?? 3-5 ? moderate 5 - ? 6-14 ?large Aneurysmal ?15-16 ?? diffuse Procedure Note Jonathan Baig MD - 12/11/2023 [address] [place] [address] Echocardiogram Report Name: SHOSHANA RUSSO Study Date: 407:05 AM : 1975 Height: 178 cm Account: [id number] Age: 48 yrs Weight: 132 kg Gender: Male BSA: 2.5 m2 Ordering Physician: STEVEN CARTWRIGHT Referring Physician: RHODA CONKLIN Performed By: Narda Lynch RDCS Reason For Study: CHF Exam Location: [facility]. Interpretation Summary Technically limited exam due to poor acoustic windows. -Wall thickness is mildly increased. Global left ventricular systolicfunction is probably normal. Left ventricular ejection fraction is estimated visuallyat 60% with inferior wall motion abnormality. . The apex and midanterior/anterolateral wall are not visualized well enough to assess regional wall motion. -Right ventricle is mildly dilated. Right ventricular systolic function ismildly decreased. The right ventricular free wall is hypokinetic. -No significant valvular disease noted on this study. -In comparison to the post operative MORA images 10/30/2023 the global rightand left ventricular function appear improved. The regional wall motion is notwell visualized on today's exam. Procedure Complete-92402. Image enhancement Definity was used for left ventricular opacification. Suboptimal quality. This study is limited because of bodyhabitus. This study is limited because the patient was unable to turn. Left Ventricle Left ventricle is of normal size. Wall thickness is mildly increased.Global left ventricular systolic function is probably normal. Left ventricularejection fraction is estimated visually at 60%. Unable to assess regional wallmotion due to technically limited images. Right Ventricle Right ventricle is mildly dilated. Right ventricular systolic function ismildly decreased. The right ventricular free wall is hypokinetic. Left Atrium The left atrium is not well visualized. The interatrial septum is notwell visualized. Right Atrium The right atrium is not well visualized. Aortic Valve The aortic valve is not well visualized. There is no aortic stenosis.There is no aortic regurgitation. Mitral Valve The mitral valve is structurally and functionally normal. There is nomitral stenosis. There is mild mitral regurgitation. Tricuspid Valve The tricuspid valve is structurally and functionally normal. There is notricuspid stenosis. There is trace tricuspid regurgitation. Pulmonic Valve The pulmonic valve is not well visualized. Great Arteries The diameter at the level of the sinuses of Valsalva is 3.1 cm. Theascending aorta is not well visualized. Venous Inferior vena cava is not well visualized. Pericardium/Pleural The pericardium appears normal. Hemodynamics Pulmonary artery hypertension could not be assessed due to inadequatetricuspid regurgitation jet. Unable to assess diastolic function. 2D Measurements Volumes IVSd: 1.2 cm SV(LVOT): 61.5ml LVIDd: 4.4 cm LVIDs: 3.1 cm SI(LVOT): 25.1ml/m2 LVPWd: 1.4 cm RWT: 0.66 {ratio} LV mass(C)d: 216.1 grams LV mass(C)dI: 88.2 grams/m2 Ao root diam: 3.1 cm Ao root diam index: 1.3 LVOT diam: 2.0 cm TAPSE_phl: 0.96 cm Doppler LV V1 VTI: 19.7 cm Ao V2 VTI: 30.8 cm Ao Max Jeff: 157.6 cm/sec Ao valve max: 9.9 mmHg Ao valve mean: 4.8 mmHg MV E max jeff: 148.3 cm/sec MV A max jeff: 63.2 cm/sec MV E/A: 2.3 MV dec time: 0.16 sec Lat Peak E' Jeff: 10.8 cm/sec E/e' (lat): 13.8 Med Peak E' Jeff: 5.7 cm/sec E/e' (med): 26.2 E/e' Average: 20.0 LYNETTE(I,D): 2.0 cm2 Dimensionless index Aov: 0.64 TR max jeff: 242.2 cm/sec I WMSI = 1.20 % Normal = 80 SegmentsSize X - Cannot 2 - 4 - 1-2small Interpret 1 - Normal Hypokinetic 3 - Akinetic Dyskinetic 3-5moderate 5 - 6-14large Aneurysmal 15-16diffuse Steven Cartwright MD ECHO ORDERABLES * EKG 12 Lead (12/11/2023 8:02 AM EDT) Only the most recent of5 resultswithin the time period is included. Ventricular rate 60 BPM MUSE SYSTEM Atrial Rate 60 BPM MUSE SYSTEM P-R Interval 208 ms MUSE SYSTEM QRS Duration 132 ms MUSE SYSTEM Q-T Interval 428 ms MUSE SYSTEM QTC Calculated (Bezet) 428 ms MUSE SYSTEM Calculated P [place] 58 degrees MUSE SYSTEM Calculated R [place] 98 degrees MUSE SYSTEM Calculated T [place] -4 degrees MUSE SYSTEM INTERPRETATION Normal sinus rhythm with 1st degree A-V block Rightward axis Non-specific intra-ventricular conduction block Inferior infarct (cited on or before 12-OCT-2018) Cannot rule out Anterior infarct , age undetermined Abnormal ECG When compared with ECG of 11-DEC-2023 04:54, RI interval has decreased I personally reviewed the tracing and edited the fellows interpretation Confirmed by fellow MD Adrien, Katharina ([id number]) on 12/11/2023 4:09:28 PM Confirmed by MD Jose Cruz, Jr ([id number]) on 12/12/2023 2:26:43 PM MUSE SYSTEM 12/11/2023 8:02 AM EDT 12/12/2023 2:26 PM EDT Loi Mustafa MD ECG ORDERABLES MUSE SYSTEM * Lactate, Whole Blood (2023 5:07 PM EDT) Lactate, Whole Blood 1.6 0.5 - 2.2 mmol/L 2023 5:14 PM EDT [facility] Blood VENOUS BLOOD SPECIMEN / Unknown IP Care Team Draw / Unknown 2023 5:07 PM EDT 2023 5:11 PM EDT Loi Mustafa MD CHEMISTRY ORDERABL ES Performing Organization Address City/[facility]/ZIP Co de Phone Number [facility] [place] [address] * (ABNORMAL) TSH Moore (2023 2:10 PM EDT) Thyroid Stimulating Hormone 10.70(H) 0.27 - 4.20 mcIU/mL 2023 4:25 PM EDT [facility] Blood VENOUS BLOOD SPECIMEN / Unknown IP Care Team Draw / Unknown 2023 2:10 PM EDT 2023 2:21 PM EDT Loi Mustafa MD CHEMISTRY ORDERABL ES Performing Organization Address [facility] Co de Phone Number [facility] [place] [address] * APTT (2023 2:10 PM EDT) Only the most recent of2 resultswithin the time period is included. Partial Thromboplastin Time 33 25 - 37 sec 2023 2:35 PM EDT [facility] Comment: The PTT is NOT appropriate for heparin monitoring. Use the Anti-Xa level for heparin monitoring (HEP UFH) or LMWH monitoring (HEP LMW). A PTT less than 37 seconds generally indicates adequate hemostasis. Blood VENOUS BLOOD SPECIMEN / Unknown IP Care Team Draw / Unknown 2023 2:10 PM EDT 2023 2:21 PM EDT tSeven Cartwright MD HEMATOLOGY ORDERABLE S Performing Organization Address City/[facility]/ZIP Co de Phone Number [facility] [place] [address] * (ABNORMAL) Prothrombin Time (2023 2:10 PM EDT) Only the most recent of4 resultswithin the time period is included. Prothrombin Time 13.3(H) 9.4 - 12.5 sec 2023 2:35 PM EDT [facility] International Normalization Ratio 1.2 <=4.9 2023 2:35 PM EDT [facility] Comment: An INR < 2.0 indicates adequate procoagulant activity for hemostasis in most patients without underlying bleeding disorders, though the INR may not adequately reflect hemostatic capacity in patients with liver disease and synthetic impairment. The recommended target INR range for therapeutic anticoagulation is 2.0 - 3.0 for most applications, though lower and higher ranges may be appropriate depending on clinical circumstances. Blood VENOUS BLOOD SPECIMEN / Unknown IP Care Team Draw / Unknown 2023 2:10 PM EDT 2023 2:21 PM EDT Steven Cartwright MD HEMATOLOGY ORDERABLE S Performing Organization Address City/[facility]/ZIP Co de Phone Number [facility] [place] [address] * (ABNORMAL) T4, free (2023 2:10 PM EDT) Free T4 0.85(L) 0.93 - 1.70 ng/dL 2023 4:55 PM EDT [facility] Blood VENOUS BLOOD SPECIMEN / Unknown IP Care Team Draw / Unknown 2023 2:10 PM EDT 2023 2:21 PM EDT Loi Mustafa MD CHEMISTRY ORDERABL ES [facility] [place] [address] * (ABNORMAL) pro-Brain Natriuretic Peptide (2023 2:10 PM EDT) NT-proBNP 6,349(H) <=124 pg/mL 2023 3:02 PM EDT [facility] Blood VENOUS BLOOD SPECIMEN / Unknown IP Care Team Draw / Unknown 2023 2:10 PM EDT 2023 2:21 PM EDT Steven Cartwright MD CHEMISTRY ORDERABLES [facility] [place] [address] * (ABNORMAL) Hepatic Function Panel (2023 2:10 PM EDT) Only the most recent of2 resultswithin the time period is included. Albumin 3.4 3.2 - 5.2 g/dL 2023 3:02 PM EDT [facility] Aspartate Aminotransferase 23 <=39 unit/L 2023 3:02 PM EDT [facility] Alanine Aminotransferase 62(H) 0 - 55 unit/L 2023 3:02 PM EDT [facility] Alkaline Phosphatase 107 40 - 130 unit/L 2023 3:02 PM EDT [facility] Bilirubin, Total 0.3 <=1.3 mg/dL 2023 3:02 PM EDT [facility] Bilirubin, Direct <0.2 0.0 - 0.3 mg/dL 2023 3:02 PM EDT [facility] Protein, Total 6.5 6.1 - 8.0 g/dL 2023 3:02 PM EDT [facility] Blood VENOUS BLOOD SPECIMEN / Unknown IP Care Team Draw / Unknown 2023 2:10 PM EDT 2023 2:21 PM EDT Steven Cartwright MD CHEMISTRY ORDERABLES [facility] [place] [place] [address] * Film Library- Storage Only DX Chest (2023 3:56 AM EDT) 2023 3:56 AM EDT Narrative [facility] - 2023 3:56 AM EDT This exam is auto-finalizing. It's purpose is for storage only. Steven ALBA FILM LIBRARY ORD ERABLES Performing Organization Address [facility] Co de Phone Number [place], [place] * Film Library- Storage Only CT Abdomen & Pelvis (2023 2:55 AM EDT) 2023 3:56 AM EDT Narrative [facility] - 2023 3:56 AM EDT This exam is auto-finalizing. It's purpose is for storage only. Steven ALBA FILM LIBRARY ORD ERABLES Performing Organization Address [facility] de Phone Number [place], [place] * Film Library- Storage Only CT Chest (2023 2:50 AM EDT) 2023 3:56 AM EDT Narrative [facility] 2023 3:56 AM EDT This exam is auto-finalizing. It's purpose is for storage only. Steven ALBA FILM LIBRARY ORD ERABLES Performing Organization Address [facility] de Phone Number [place], [place] * Scan Doc: [facility] - Provider Care (12/06/2023 12:00 AM EDT) Narrative 12/06/2023 12:00 AM EDT Ordered by an unspecified provider. Scanning Provider MEDIA MGR SCAN EXT O RDR/RSLT * (ABNORMAL) Protein/Creatinine Ratio, urine (11/27/2023 8:00 AM EDT) Only the most recent of2 resultswithin the time period is included. Protein, Urine 202(H) 0 - 12 mg/dL 11/27/2023 9:07 AM EDT [facility] Creatinine, Urine 80 mg/dL 11/27/2023 9:07 AM EDT [facility] Protein / Creatinine Ratio, Urine 2.5 ratio 11/27/2023 9:07 AM EDT [facility] Urine URINE SPECIMEN / Unknown Non Blood Collection / Unknown 11/27/2023 8:00 AM EDT 11/27/2023 8:00 AM EDT Donavon Frey MD URINE ORDERABLES [facility] [place] [address] * (ABNORMAL) U Albumin/Cre Ratio (11/27/2023 8:00 AM EDT) Only the most recent of2 resultswithin the time period is included. Albumin, Urine 1,182.0 mg/L 11/27/2023 9:07 AM EDT [facility] Creatinine, Urine 80 mg/dL 024 9:07 AM EDT [facility] Albumin / Creatinine Ratio, Urine 1,478(H) 0 - 29 mcg/mg Cr 11/27/2023 9:07 AM EDT [facility] Comment: Reference Ranges: ?? <30 mcg/mg: Normal ?? 30-300 mcg/mg: Moderately increased albuminuria.* ?? >300 mcg/mg: Severely increased albuminuria. ?? * ACEI or ARB recommended if diabetic; suggested if BP>130/80 without diabetes ?? ACEI or ARB strongly recommended if diabetic; recommended if BP>130/80 without diabetes ??Two of three specimens collected within a 3 to 6 month period should be abnormal before considering a patient to have albuminuria. Transient causes: exercise, fever, infection, CHF, marked hyperglycemia or hypertension. Persistent albuminuria indicates CKD and is an independent risk factor for ASCVD. ??ADA Standards of Medical Care in Diabetes-2016; KDIGO: Kidney International Supplements (2012) 2 ??[phone] Urine URINE SPECIMEN / Unknown Non Blood Collection / Unknown 11/27/2023 8:00 AM EDT 11/27/2023 8:00 AM EDT Donavon Frey MD URINE ORDERABLES [facility] [place] [address] * (ABNORMAL) Vitamin D, 25-Hydroxy (11/27/2023 7:56 AM EDT) Only the most recent of2 resultswithin the time period is included. Vitamin D Total 25 OH 13(L) 21 - 100 ng/ml 11/27/2023 9:08 AM EDT [facility] Vitamin D Total 25 OH Interp Deficient 11/27/2023 9:08 AM EDT [facility] Blood VENOUS BLOOD SPECIMEN / Unknown Venipuncture / Unknown 11/27/2023 7:56 AM EDT 11/27/2023 7:56 AM EDT Donavon Frey MD CHEMISTRY ORDERABLES Performing Organization Address City/[facility]/[place] [address] * Albumin Level (11/27/2023 7:56 AM EDT) Albumin 3.5 3.2 - 5.2 g/dL 11/27/2023 8:58 AM EDT [facility] Blood VENOUS BLOOD SPECIMEN / Unknown Venipuncture / Unknown 11/27/2023 7:56 AM EDT 11/27/2023 7:56 AM EDT Donavon Frey MD CHEMISTRY ORDERABLES [facility] [place] [address] * XR Chest PA & Lateral (Generic) (11/17/2023 10:09 AM EDT) WORKSTATION ID [id number] RAD Anatomical Region Laterality Modality Chest N/A Digital Radiogra phy Impressions 11/17/2023 10:27 AM EDT 1. ??Interval extubation and removal of additional support equipment. No pneumothorax. 2. ??Small left pleural effusion with likely left basilar atelectasis. 3. ??No right pleural effusion. Thank you for letting us participate in the care of this patient. ??If you are a health care provider and have any questions regarding this report, please contact the number below. ??For patients who have questions please contact the health senior care specialist that requested your imaging first. ? Narrative 11/17/2023 10:27 AM EDT EXAMINATION: XR CHEST PA AND LATERAL (GENERIC) CLINICAL HISTORY: s/p CABG w/ hypoxemic resp failure, eval for pleural effusions TECHNIQUE: PA and lateral views of the chest, 2 images. COMPARISON: Portable AP 40 degrees upright chest radiograph 11/08/2023 at 0821 hours. FINDINGS: Suboptimal lateral view due to patient positioning and radiographic technique. Monitoring leads and wires overlie the chest. Interval extubation and removal of enteric feeding tube and right IJ venous catheter. No pneumothorax. A small left pleural effusion is visualized with left retrocardiac/basilar opacities presumably representing atelectasis. Right lung appears clear. No right pleural effusion. Stable cardiomediastinal silhouette, heart borderline enlarged. No pulmonary edema. Procedure Note An Kiser MD - 11/17/2023 EXAMINATION: XR CHEST PA AND LATERAL (GENERIC) CLINICAL HISTORY: s/p CABG w/ hypoxemic resp failure, eval for pleuraleffusions TECHNIQUE: PA and lateral views of the chest, 2 images. COMPARISON: Portable AP 40 degrees upright chest radiograph 11/08/2023 at 0821 hours. FINDINGS: Suboptimal lateral view due to patient positioning and radiographictechnique. Monitoring leads and wires overlie the chest. Interval extubation andremoval of enteric feeding tube and right IJ venous catheter. No pneumothorax. A small left pleural effusion is visualized with leftretrocardiac/basilar opacities presumably representing atelectasis. Right lung appears clear. No right pleural effusion. Stable cardiomediastinal silhouette, heart borderline enlarged. Nopulmonary edema. IMPRESSION 1. Interval extubation and removal of additional support equipment. No pneumothorax. 2. Small left pleural effusion with likely left basilar atelectasis. 3. No right pleural effusion. Thank you for letting us participate in the care of this patient. If youare a health care provider and have any questions regarding this report,please contact the number below. For patients who have questions please contactthe health senior care specialist that requested your imaging first. Festus Person MD IMG DX ORDERABLES * (ABNORMAL) Blood Gas, Arterial (11/13/2023 6:35 AM EDT) Only the most recent of3 resultswithin the time period is included. pH, Arterial 7.44 7.35 - 7.45 11/13/2023 6:46 AM [facility] PCO2, Arterial 37 35 - 45 mmHg 11/13/2023 6:46 AM [facility] PO2, Arterial 108(H) 85 - 104 mmHg 11/13/2023 6:46 AM [facility] Bicarbonate, Arterial 25.0 20.0 - 26.0 mmol/L 11/13/2023 6:46 AM [facility] Base Excess, Arterial 0.9 -3.0 - 3.0 mmol/L 11/13/2023 6:46 AM [facility] Hemoglobin, Arterial 9.0(L) 13.7 - 16.5 g/dL 11/13/2023 6:46 AM [facility] Oxyhemoglobin, Arterial 97.1(H) 94.0 - 97.0 % 11/13/2023 6:46 AM [facility] Carboxyhemoglobin , Arterial 0.3 % 11/13/2023 6:46 AM EDT [facility] Comment: Nonsmokers: 0.5-1.5% COHB ?? Smokers: Variable ??but usually less than 10% ?? Toxic: 20-30% COHB ?? Lethal: Greater than 60% COHB Methemoglobin, Arterial 0.1 <=1.5 % 11/13/2023 6:46 AM EDT [facility] Sodium, Arterial 138 135 - 145 mmol/L 11/13/2023 6:46 AM EDT [facility] IONIZED CALCIUM, ARTERIAL 1.18 1.15 - 1.33 mmol/L 11/13/2023 6:46 AM EDT [facility] Chloride, Arterial 105 98 - 107 mmol/L 11/13/2023 6:[facility] Potassium, Arterial 4.3 3.5 - 5.0 mmol/L 11/13/2023 6:46 AM EDT [facility] Glucose, Arterial 125 65 - 199 mg/dL 11/13/2023 6:46 AM [facility] Comment:Glucose Concentratio n >=200 mg/dL plus symptoms is consistent with Diabetes Mellitus. Lactate, Arterial 0.8 0.5 - 2.2 mmol/L 11/13/2023 6:46 AM [facility] Blood ARTERIAL BLOOD / Unknown IP Care Team Draw / Unknown 11/13/2023 6:35 AM EDT 11/13/2023 6:40 AM EDT Calos Lazo MD CHEMISTRY ORDERABLES [facility] [place] [address] * Heparin (unfractionated) Level (11/13/2023 6:33 AM EDT) Only the most recent of7 resultswithin the time period is included. UF Heparin 0.10 IU/mL 11/13/2023 6:51 AM EDT [facility] Comment: Heparin (anti-Xa) levels should be determined in a plasma sample that has been drawn 6 hours after a dose change to approximate steady-state for continuous heparin infusions. Indication specific Heparin (anti-Xa) levels based on order set selection: Acute DVT or PE prevention: ? 0.3-0.7 IU/mL Thrombosis Prevention (e.g. atrial fibrillation, luis miguel-procedural bridging, mechanical valves): ? 0.3-0.7 IU/mL Acute Coronary Syndrome: ? 0.3-0.7 IU/mL Stroke Indications: ? 0.3-0.5 IU/mL Ultra-low intensity (select indications in cardiac surgery): ? 0.1-0.3 IU/mL Blood VENOUS BLOOD SPECIMEN / Unknown IP Care Team Draw / Unknown 11/13/2023 6:33 AM EDT 11/13/2023 6:37 AM EDT Aby Clay [facility] HEMATOLOGY ORDERAB LES [facility] [place] [address] * (ABNORMAL) Blood Gas, Arterial POC (11/12/2023 12:02 PM EDT) Only the most recent of85 resultswithin the time period is included. pH, Arterial 7.49(H) 7.35 - 7.45 11/12/2023 12:05 PM EDT [facility] PCO2, Arterial 28(L) 35 - 45 mmHg 11/12/2023 12:05 PM EDT [facility] Bicarbonate, Arterial 21.2 20.0 - 26.0 mmol/L 11/12/2023 12:05 PM EDT [facility] Base Excess, Arterial -2.1 -3.0 - 3.0 mmol/L 11/12/2023 12:05 PM EDT [facility] Hemoglobin, Arterial 9.4(L) 13.7 - 16.5 g/dL 11/12/2023 12:05 PM EDT [facility] Oxyhemoglobin, Arterial 94.0 94.0 - 97.0 % 11/12/2023 12:05 PM EDT [facility] Carboxyhemoglobin , Arterial 0.4 % 11/12/2023 12:05 PM EDT [facility] LABORATORY Comment: Nonsmokers: 0.5-1.5% COHB ?? Smokers: Variable ??but usually less than 10% ?? Toxic: 20-30% COHB ?? Lethal: Greater than 60% COHB Methemoglobin, Arterial 0.3 <=1.5 % 11/12/2023 12:05 PM EDT [facility] Sodium, Arterial 138 135 - 145 mmol/L 11/12/2023 12:05 PM EDT [facility] Potassium, Arterial 3.9 3.5 - 5.0 mmol/L 11/12/2023 12:05 PM EDT [facility] Chloride, Arterial 107 98 - 107 mmol/L 11/12/2023 12:05 PM EDT [facility] Lactate, Arterial 0.7 0.5 - 2.2 mmol/L 11/12/2023 12:05 PM T [facility] Flow Rate 3.0 L/min 11/12/2023 12:05 PM EDT [facility] IONIZED CALCIUM, ARTERIAL 1.17 1.15 - 1.33 mmol/L 11/12/2023 12:05 PM EDT [facility] Glucose, Arterial 147 65 - 199 mg/dL 11/12/2023 12:05 PM EDT [facility] Comment:Glucose Concentratio n >=200 mg/dL plus symptoms is consistent with Diabetes Mellitus. Blood ARTERIAL BLOOD / Unknown 11/12/2023 12:02 PM EDT 11/12/2023 12:05 PM EDT Festus Person MD POINT OF CARE TEST ORDERABLES [facility] [place] [address] * XR Abdomen 1 view (Generic) (11/11/2023 9:52 AM EDT) Only the most recent of3 resultswithin the time period is included. WORKSTATION ID [id number] RAD Anatomical Region Laterality Modality Abdomen N/A Digital Radiogra phy Impressions 11/11/2023 6:11 PM EDT Feeding tube in the stomach. No dilated small or large bowel or evidence of obstruction. Thank you for letting us participate in the care of this patient. ??If you are a health care provider and have any questions regarding this report, please contact the number below. ??For patients who have questions please contact the health senior care specialist that requested your imaging first. ? Narrative 11/11/2023 6:11 PM EDT EXAMINATION: XR ABDOMEN 1 VIEW (GENERIC) CLINICAL HISTORY: abd distention, tympany, pain with palpation TECHNIQUE: Supine abdomen COMPARISON: 11/03/2023 FINDINGS: Weighted Dobbhoff tube is in the stomach. Normal caliber Air-filled transverse colon, remainder of the bowel is largely gasless. Examination is limited due to patient's body habitus. No evident abnormal soft tissue contours. Todd catheter overlies the pelvis. Left basal atelectasis, right base clear. Procedure Note Daniel Muir MD - 11/11/2023 EXAMINATION: XR ABDOMEN 1 VIEW (GENERIC) CLINICAL HISTORY: abd distention, tympany, pain with palpation TECHNIQUE: Supine abdomen COMPARISON: 11/03/2023 FINDINGS: Weighted Dobbhoff tube is in the stomach. Normal caliber Air-filledtransverse colon, remainder of the bowel is largely gasless. Examination is limited due to patient's body habitus. No evident abnormalsoft tissue contours. Todd catheter overlies the pelvis. Left basalatelectasis, right base clear. IMPRESSION Feeding tube in the stomach. No dilated small or large bowel or evidenceof obstruction. Thank you for letting us participate in the care of this patient. If youare a health care provider and have any questions regarding this report,please contact the number below. For patients who have questions please contactthe health senior care specialist that requested your imaging first. Festus Person MD IMG DX ORDERABLES * (ABNORMAL) Lipase (11/11/2023 8:39 AM EDT) Lipase 82(H) 0 - 60 unit/L 11/11/2023 9:32 AM EDT [facility] Blood VENOUS BLOOD SPECIMEN / Unknown IP Care Team Draw / Unknown 11/11/2023 8:39 AM EDT 11/11/2023 8:46 AM EDT Festus Person MD CHEMISTRY ORDERABLE S Performing Organization Address City/[facility]/ZIP Co de Phone Number [facility] [place] [address] * Amylase (11/11/2023 8:39 AM EDT) Amylase 63 28 - 100 unit/L 11/11/2023 9:32 AM EDT [facility] Blood VENOUS BLOOD SPECIMEN / Unknown IP Care Team Draw / Unknown 11/11/2023 8:39 AM EDT 11/11/2023 8:46 AM EDT Festus Person MD CHEMISTRY ORDERABLE S [facility] [place] [address] * C diff Screen (11/10/2023 2:17 PM EDT) C Diff Interp Negative Negative 11/10/2023 11:23 PM EDT [facility] C Diff PCR Negative Negative 11/10/2023 11:23 PM EDT [facility] Stool STOOL SPECIMEN / Unknown Non Blood Collection / Unknown 11/10/2023 2:17 PM EDT 11/10/2023 2:51 PM EDT Aby Mcgarryfield SEISMOGRAPH OPERATOR MICROBIOLOGY - GEN ERAL ORDERABLES [facility] [place] [address] * C Diff PCR (11/10/2023 2:17 PM EDT) Stool STOOL SPECIMEN / Unknown Non Blood Collection / Unknown 11/10/2023 2:17 PM EDT 11/10/2023 2:51 PM EDT Aby Mcgarryfield SEISMOGRAPH OPERATOR MICROBIOLOGY - GEN ERAL ORDERABLES [facility] [place] [address] * Scan, Peripheral Blood (11/10/2023 10:55 AM EDT) Only the most recent of3 resultswithin the time period is included. RBC Morphology Abnormal 11/10/2023 12:32 PM EDT [facility] Platelet Estimate Normal Normal 024 12:32 PM EDT [facility] Microcyte 1-5 /HPF 11/10/2023 12:32 PM EDT [facility] Hypochromasia Slight 11/10/2023 12:32 PM EDT [facility] Polychromasia Present 11/10/2023 12:32 PM EDT [facility] Ovalocytes 1-5 /HPF 11/10/2023 12:32 PM EDT [facility] Blood VENOUS BLOOD SPECIMEN / Unknown IP Care Team Draw / Unknown 11/10/2023 10:55 AM EDT 11/10/2023 10:59 AM EDT Aby Williamson RAMONA HEMATOLOGY ORDERAB LES Performing Organization Address City/[facility]/ZIP Co de Phone Number [facility] [place] [address] * (ABNORMAL) Creatinine (11/09/2023 11:33 AM EDT) Only the most recent of5 resultswithin the time period is included. Creatinine 1.80(H) 0.80 - 1.50 mg/dL 11/09/2023 12:18 PM EDT [facility] Est Glomerular Filtration Rate - Male 47 mL/min/1. 73 m?? 11/09/2023 12:18 PM EDT [facility] Comment: This patient's estimated GFR was calculated using the 2020 CKD-EPI equation. The estimated GFR can vary from the measured GFR by up to 30% in the absence of rapidly changing kidney function. Assessment of the estimated GFR is not appropriate when creatinine concentrations are rapidly changing. For clinical situations in which a more precise estimate of GFR is necessary, consider alternative methods of GFR estimation such as a 24-hour urine creatinine clearance. Assignment of CKD stage 1 - 5 for patients with an eGFR near the transition point between stages may be based on clinical assessment of muscle mass and symptoms in addition to eGFR. Link: eGFR Calculator [employer] Blood VENOUS BLOOD SPECIMEN / Unknown IP Care Team Draw / Unknown 11/09/2023 11:33 AM EDT 11/09/2023 11:51 AM EDT Calos Lazo MD CHEMISTRY ORDERABLES Performing Organization Address City/[facility]/ZIP Co de Phone Number [facility] [place] [address] * (ABNORMAL) BUN (11/09/2023 11:33 AM EDT) Only the most recent of5 resultswithin the time period is included. Blood Urea Nitrogen 34(H) 10 - 20 mg/dL 11/09/2023 12:18 PM EDT [facility] Blood VENOUS BLOOD SPECIMEN / Unknown IP Care Team Draw / Unknown 11/09/2023 11:33 AM EDT 11/09/2023 11:51 AM EDT Calos Lazo MD CHEMISTRY ORDERABLES Performing Organization Address City/[facility]/ZIP Co de Phone Number [facility] [place] [address] * Prepare RBC (11/07/2023 10:03 PM EDT) Only the most recent of4 resultswithin the time period is included. Status Information Transfused [facility] Product Identification RBC [facility] Unit Number [id number] [facility] Product Code [id number] [facility] Unit Blood Type OPOS [facility] Specimen Expiration Date [id number] [facility] [address] [facility] Issue Date / Time [id number] [facility] Blood 11/07/2023 7:5 1 AM EDT Aby Williamson APRN BLOOD BANK PRODUCT ORDERABLES Performing Organization Address City/[facility]/ZIP Co de Phone Number [facility] [place] [address] * Transfuse RBC (11/07/2023 1:49 PM EDT) Only the most recent of2 resultswithin the time period is included. Abysocrates McgarryClay APRN NURSING TREATMENT ORDERABLES - BLOOD ADMIN * ABORH RECHECK (PATIENT HISTORY FOUND) (11/07/2023 8:17 AM EDT) Only the most recent of2 resultswithin the time period is included. ABORH Recheck Progress Complete 11/07/2023 10:01 AM EDT [facility] Blood ARTERIAL BLOOD / Unknown IP Care Team Draw / Unknown 11/07/2023 8:17 AM EDT 11/07/2023 8:21 AM EDT [facility] ORD ERABLES [facility] [place] [address] * Type and screen ([facility]/CGP/JEN) (11/07/2023 8:17 AM EDT) Only the most recent of2 resultswithin the time period is included. ABORH Type O POSITIVE 11/07/2023 9:26 AM EDT [facility] PATIENT HISTORY Found 11/07/2023 9:26 AM EDT [facility] Expires at 2359 on: 11/07/2023 9:26 AM EDT [facility] ANTIBODY SCREEN AUTOMATED Negative 11/07/2023 9:26 AM EDT [facility] T&S only valid at [facility] 11/07/2023 9:26 AM EDT [facility] Blood ARTERIAL BLOOD / Unknown IP Care Team Draw / Unknown 11/07/2023 8:17 AM EDT 11/07/2023 8:21 AM EDT Narrative [facility] - 11/07/2023 9:26 AM EDT This Type and Screen result is only valid at the [facility] ORD ERABLES Performing Organization Address [facility] Co de Phone Number [facility] [place] [address] * Potassium (11/07/2023 5:14 AM EDT) Only the most recent of21 resultswithin the time period is included. Potassium 3.6 3.5 - 5.0 mMol/L 11/07/2023 5:58 AM EDT [facility] Blood VENOUS BLOOD SPECIMEN / Unknown IP Care Team Draw / Unknown 11/07/2023 5:14 AM EDT 11/07/2023 5:22 AM EDT Festus Person MD CHEMISTRY ORDERABLE S [facility] [place] [address] * Blood culture (11/06/2023 10:15 PM EDT) Blood Culture No growth at 120 hours 11/11/2023 11:01 PM EDT [facility] Blood VENOUS BLOOD SPECIMEN / Unknown IP Care Team Draw / Unknown 11/06/2023 10:15 PM EDT 11/06/2023 10:22 PM EDT Festus Person MD MICROBIOLOGY - BLOO D ORDERABLES Performing Organization Address City/[facility]/ZIP Co de Phone Number [facility] [place] [address] * (ABNORMAL) Urinalysis Dipstick (11/06/2023 9:50 PM EDT) Only the most recent of2 resultswithin the time period is included. Glucose, Urine Dipstick Negative Negative 11/06/2023 10:14 PM EDT [facility] Protein, Urine Dipstick 100 mg/dL(A) Negative 11/06/2023 10:14 PM EDT [facility] Bilirubin, Urine Dipstick Negative Negative 11/06/2023 10:14 PM EDT [facility] Comment:Clinical correlation required for positive Urine Bilirubin results as false positive may occur with some drugs and drug related products. If a false positive is suspected a serum total bilirubin should be considered if clinically indicated. Urobilinogen, Urine Dipstick Normal Normal, 0.2 mg/dL, 1.0 mg/dL 11/06/2023 10:14 PM EDT [facility] pH, Urine (dipstick) 5.5 5.0 - 8.0 11/06/2023 10:14 PM EDT [facility] Blood, Urine Dipstick Negative Negative 11/06/2023 10:14 PM EDT [facility] Ketone, Urine Dipstick Negative Negative 11/06/2023 10:14 PM EDT [facility] Nitrite, Urine Dipstick Negative Negative 11/06/2023 10:14 PM EDT [facility] Leukocytes, Urine Dipstick Negative Negative 11/06/2023 10:14 PM EDT [facility] Specific [place] Urine Automated 1.013 1.005 - 1.030 11/06/2023 10:14 PM EDT [facility] Appearance, Urine Dipstick Clear Clear 11/06/2023 10:14 PM EDT [facility] Color, Urine Dipstick Yellow Yellow, Dark Yellow 11/06/2023 10:14 PM EDT [facility] CULTURE ADDED? 11/06/2023 10:14 PM EDT [facility] Urine URINE SPECIMEN OBTAINED VIA INDWELLING URINARY CATHETER / Unknown Non Blood Collection / Unknown 11/06/2023 9:50 PM EDT 11/06/2023 9:57 PM EDT Festus Person MD URINE ORDERABLES Performing Organization Address City/[facility]/ZIP Co de Phone Number [facility] [place] [address] * (ABNORMAL) CK (11/05/2023 4:51 AM EDT) Only the most recent of4 resultswithin the time period is included. Creatine Kinase 2,283(H) 0 - 200 unit/L 11/05/2023 5:47 AM EDT [facility] Blood VENOUS BLOOD SPECIMEN / Unknown IP Care Team Draw / Unknown 11/05/2023 4:51 AM EDT 11/05/2023 5:05 AM EDT Festus Person MD CHEMISTRY ORDERABLE S Performing Organization Address City/[facility]/ZIP Co de Phone Number [facility] [place] [address] * Vancomycin Level, Random (11/05/2023 12:08 AM EDT) Only the most recent of3 resultswithin the time period is included. Pathologist [facility] Vancomycin, Random 17.9 mg/L 2023 12:51 AM EDT [facility] Comment:This level is for de termination of the patient's vancomycin wtfo-rwsij-alw-curve (AUC) value. Contact the inpatient pharmacy for interpretation. Blood VENOUS BLOOD SPECIMEN / Unknown IP Care Team Draw / Unknown 11/05/2023 12:08 AM EDT 11/05/2023 12:13 AM EDT Festus Person MD CHEMISTRY ORDERABLE S [facility] [place] [address] * Scan Doc: Lab (11/05/2023 12:00 AM EDT) Narrative 11/05/2023 12:00 AM EDT Ordered by an unspecified provider. Scanning Provider MEDIA MGR SCAN EXT O RDR/RSLT * HCV Reflex Hold (11/04/2023 4:36 PM EDT) [facility] HCV Hold Hold for Add-on 11/04/2023 6:01 PM EDT [facility] Blood VENOUS BLOOD SPECIMEN / Unknown IP Care Team Draw / Unknown 11/04/2023 4:36 PM EDT 11/04/2023 4:55 PM EDT Festus Person MD CHEMISTRY ORDERABLE S [facility] [place] [address] * Hepatitis C Antibody with Reflex (11/04/2023 4:36 PM EDT) [facility] Hepatitis C Antibody Negative Negative 11/04/2023 5:57 PM EDT [facility] Blood VENOUS BLOOD SPECIMEN / Unknown IP Care Team Draw / Unknown 11/04/2023 4:36 PM EDT 11/04/2023 4:55 PM EDT Festus Person MD CHEMISTRY ORDERABLE S [facility] [place] [address] * Hepatitis B Core Antibody, IgM (11/04/2023 4:36 PM EDT) Pathologist [facility] Hepatitis B Core IgM Negative Negative 11/04/2023 5:57 PM EDT [facility] Blood VENOUS BLOOD SPECIMEN / Unknown IP Care Team Draw / Unknown 11/04/2023 4:36 PM EDT 11/04/2023 4:55 PM EDT Festus Person MD CHEMISTRY ORDERABLE S Performing Organization Address City/[facility]/ZIP Co de Phone Number [facility] [place] [address] * (ABNORMAL) Urinalysis Microscopic (11/04/2023 11:54 AM EDT) Pathologist [facility] RBC, Urine 4(H) 0 - 3 /HPF 11/04/2023 1:44 PM EDT [facility] WBC, Urine 1 0 - 3 /HPF 11/04/2023 1:44 PM EDT [facility] Squamous Epithelial Cells, Urine 18(H) 0 - 5 /HPF 11/04/2023 1:44 PM EDT [facility] Hyaline Casts, Urine 1 0 - 2 /LPF 11/04/2023 1:44 PM EDT [facility] Granular Casts, Urine 2(H) <=0 /LPF 11/04/2023 1:44 PM EDT [facility] Cell Cast, Urine <1(H) <=0 /LPF 11/04/19 1:44 PM EDT [facility] Comment 11/04/2023 1:44 PM EDT [facility] Comment:Interpret results wi th caution, microscopic results are from a suboptimal specimen. Bacteria, Urine Moderate( A) None /HPF 11/04/2023 1:44 PM EDT [facility] Urine URINE SPECIMEN OBTAINED VIA [employer]WELL[employer] URINARY CATHETER / Unknown Non Blood Collection / Unknown 11/04/2023 11:54 AM EDT 11/04/2023 12:31 PM EDT Festus Person MD URINE ORDERABLES Performing Organization Address [facility] Co de Phone Number [facility] [place] [address] * Urinalysis Microscopic Exam (11/04/2023 11:54 AM EDT) Urine Non Blood Collection / Unknown 11/04/2023 11:54 AM EDT 11/04/2023 12:31 PM EDT Festus Person MD URINE ORDERABLES Performing Organization Address City/[facility] Co de Phone Number [facility] [place] [address] * Urea nitrogen, urine, random (11/04/2023 11:54 AM EDT) Urea Nitrogen, Urine 194 mg/dL 11/04/2023 1:44 PM EDT [facility] Urine URINE SPECIMEN / Unknown Non Blood Collection / Unknown 11/04/2023 11:54 AM EDT 11/04/2023 12:31 PM EDT Festus Person MD URINE ORDERABLES Performing Organization Address City/[facility]/ZIP Co de Phone Number [facility] [place] [address] * Sodium, urine, random (11/04/2023 11:54 AM EDT) Sodium, Urine 50 mMol/L 11/04/2023 3:28 PM EDT [facility] Urine URINE SPECIMEN / Unknown Non Blood Collection / Unknown 11/04/2023 11:54 AM EDT 11/04/2023 12:31 PM EDT Festus Person MD URINE ORDERABLES [facility] [place] [address] * Creatinine, urine, random (11/04/2023 11:54 AM EDT) Creatinine, Urine 64 mg/dL 11/04/2023 1:44 PM EDT [facility] Urine URINE SPECIMEN / Unknown Non Blood Collection / Unknown 11/04/2023 11:54 AM EDT 11/04/2023 12:31 PM EDT Festus Person MD URINE ORDERABLES Performing Organization Address City/[facility] Co de Phone Number [facility] [place] [address] * (ABNORMAL) Uric acid (11/04/2023 9:46 AM EDT) Uric Acid 12.8(H) 3.5 - 8.5 mg/dL 11/04/2023 3:04 PM EDT [facility] Blood VENOUS BLOOD SPECIMEN / Unknown IP Care Team Draw / Unknown 11/04/2023 9:46 AM EDT 11/04/2023 9:50 AM EDT Festus Person MD CHEMISTRY ORDERABLE S Performing Organization Address City/[facility]/ZIP Co de Phone Number [facility] [place] [address] * (ABNORMAL) T3 Total (11/04/2023 9:46 AM EDT) T3 Total 38(L) 80 - 200 ng/dL 11/04/2023 3:04 PM EDT [facility] Blood VENOUS BLOOD SPECIMEN / Unknown IP Care Team Draw / Unknown 11/04/2023 9:46 AM EDT 11/04/2023 9:50 AM EDT Festus Person MD CHEMISTRY ORDERABLE S [facility] [place] [address] * (ABNORMAL) TSH (11/04/2023 9:46 AM EDT) Thyroid Stimulating Hormone 7.14(H) 0.27 - 4.20 mcIU/mL 11/04/2023 3:04 PM EDT [facility] Blood VENOUS BLOOD SPECIMEN / Unknown IP Care Team Draw / Unknown 11/04/2023 9:46 AM EDT 11/04/2023 9:50 AM EDT Festus Person MD CHEMISTRY ORDERABLE S Performing Organization Address City/[facility]/ZIP Co de Phone Number [facility] [place] [address] * (ABNORMAL) T4 Total (11/04/2023 9:46 AM EDT) T4 Total 1.8(L) 4.6 - 7.9 mcg/dL 11/04/2023 3:04 PM EDT [facility] Blood VENOUS BLOOD SPECIMEN / Unknown IP Care Team Draw / Unknown 11/04/2023 9:46 AM EDT 11/04/2023 9:50 AM EDT Festus Person MD CHEMISTRY ORDERABLE S [facility] [place] [address] * Triglyceride (11/03/2023 11:53 PM EDT) Triglyceride 464 mg/dL 11/04/2023 12:47 AM EDT [facility] Comment: Normal: <150 mg/dL Borderline High: 150-199 mg/dL High: 200-499 mg/dL Very High: > or =500 mg/dL Blood VENOUS BLOOD SPECIMEN / Unknown IP Care Team Draw / Unknown 11/03/2023 11:53 PM EDT 11/04/2023 12:05 AM EDT Festus Person MD CHEMISTRY ORDERABLE S [facility] [place] [address] * Duplex Study for DVT, Bilat legs (11/03/2023 8:39 AM EDT) VB Text Report Department: Vascular Surgery Lab Patient: [id number] (SHOSHANA RUSSO) CPT: [id number] Referring Physician: FESTUS PERSON ?? Phone: Indications: Post op ? DVT Findings: RIGHT: Age indeterminate occlusive deep venous thrombosis noted in one of paired peroneal veins Patent common femoral vein and popliteal vein with spontaneous, respirophasic Doppler waveforms that respond normally to augmentation maneuvers. The common femoral vein, saphenofemoral junction, femoral vein through the thigh and popliteal vein are fully compressible. Patent posterior tibial with no evidence of thrombus. LEFT: Patent common femoral vein and popliteal vein with spontaneous, respirophasic Doppler waveforms that respond normally to augmentation maneuvers. The common femoral vein, saphenofemoral junction, femoral vein through the thigh and popliteal vein are fully compressible. Patent posterior tibial and peroneal veins with no evidence of thrombus. Interpretation: RIGHT: Age indeterminate occlusive deep venous thrombosis noted in one of paired peroneal veins. LEFT: ??No evidence of lower extremity deep venous thrombosis. Comparison: No previous study in our vascular lab database for comparison. Notification: Nurse Devin Franks was informed of these preliminary findings. Electronically Signed by: GIORGI LOPEZ on 2023-11-03 03:38:05 PM [facility] VB Text Report End of Report [facility] 11/03/2023 8:39 AM EDT Festus Person MD VASCULAR ORDERABLES Performing Organization Address City/[facility]/ZIP Co de Phone Number [facility] * Lower Respiratory Culture (11/02/2023 6:38 PM EDT) Only the most recent of3 resultswithin the time period is included. Lower Respiratory Culture Rare mixed bacterial morphotypes suggestive of normal upper respiratory adrian 11/04/2023 8:22 AM EDT [facility] Gram Stain No squamous epithelial cells 11/04/2023 8:22 AM EDT [facility] Gram Stain Many Neutrophils seen 11/04/2023 8:22 AM EDT [facility] Gram Stain Rare Mixed bacterial morphotypes suggestive of normal upper respiratory adrian 11/04/2023 8:22 AM EDT [facility] Bronchial Alveolar Lavage SPECIMEN FROM BRONCH[facility] / Unknown Non Blood Collection / Unknown 11/02/2023 6:38 PM EDT 11/02/2023 6:42 PM EDT Janie Smith MD MICROBIOLOGY - GENER AL ORDERABLES Performing Organization Address [facility] Co de Phone Number [facility] [place] [address] * Beta Hydroxybutyrate (11/01/2023 8:03 AM EDT) Pathologist [facility] Beta-hydroxybu tyrate <0.10 0.00 - 0.30 mMol/L 11/01/2023 9:21 AM EDT [facility] Blood VENOUS BLOOD SPECIMEN / Unknown IP Care Team Draw / Unknown 11/01/2023 8:03 AM EDT 11/01/2023 8:13 AM EDT Narrative [facility] - 11/01/2023 9:21 AM EDT This test has not been cleared by the [place] FDA. Performance characteristics of this test were determined by [place] Hospital in accordance with CLIA requirements. This laboratory is qualified under CLIA to perform high-complexity testing. Festus Person MD CHEMISTRY ORDERABLE S Performing Organization Address City/[facility] Co de Phone Number [facility] [place] [address] * (ABNORMAL) Comprehensive metabolic panel (10/31/2023 11:48 AM EDT) Only the most recent of2 resultswithin the time period is included. Pathologist [facility] Glucose 166 65 - 199 mg/dL 10/31/2023 12:44 PM [facility] Comment:Glucose Concentratio n >=200 mg/dL plus symptoms is consistent with Diabetes Mellitus. Blood Urea Nitrogen 43(H) 10 - 20 mg/dL 10/31/2023 12:44 PM [facility] Creatinine 4.00(H) 0.80 - 1.50 mg/dL 10/31/2023 12:44 PM [facility] Sodium 135 135 - 145 mMol/L 10/31/2023 12:44 PM [facility] Potassium 5.3(H) 3.5 - 5.0 mMol/L 10/31/2023 12:44 PM [facility] Chloride 103 98 - 107 mMol/L 10/31/2023 12:44 PM [facility] Carbon Dioxide 20(L) 22 - 31 mMol/L 10/31/2023 12:44 PM [facility] Anion Gap 12 5 - 15 mMol/L 10/31/2023 12:44 PM [facility] Calcium 8.1(L) 8.5 - 10.5 mg/dL 10/31/2023 12:44 PM [facility] Protein, Total 5.3(L) 6.1 - 8.0 g/dL 10/31/2023 12:44 PM [facility] Albumin 2.9(L) 3.2 - 5.2 g/dL 10/31/2023 12:44 PM [facility] Aspartate Aminotransferase 24 <=39 unit/L 10/31/2023 12:44 PM [facility] Alanine Aminotransferase 14 0 - 55 unit/L 10/31/2023 12:44 PM [facility] Alkaline Phosphatase 58 40 - 130 unit/L 10/31/2023 12:44 PM [facility] Bilirubin, Total 0.3 <=1.3 mg/dL 10/31/2023 12:44 PM [facility] Est Glomerular Filtration Rate - Male 18 mL/min/1. 73 m?? 10/31/2023 12:44 PM EDT [facility] Comment: This patient's estimated GFR was calculated using the 2020 CKD-EPI equation. The estimated GFR can vary from the measured GFR by up to 30% in the absence of rapidly changing kidney function. Assessment of the estimated GFR is not appropriate when creatinine concentrations are rapidly changing. For clinical situations in which a more precise estimate of GFR is necessary, consider alternative methods of GFR estimation such as a 24-hour urine creatinine clearance. Assignment of CKD stage 1 - 5 for patients with an eGFR near the transition point between stages may be based on clinical assessment of muscle mass and symptoms in addition to eGFR. Link: eGFR Calculator [employer] Blood VENOUS BLOOD SPECIMEN / Unknown IP Care Team Draw / Unknown 10/31/2023 11:48 AM EDT 10/31/2023 12:09 PM EDT Janie Smith MD CHEMISTRY ORDERABLES [facility] [place] [address] * (ABNORMAL) Cooximetry, POC (10/31/2023 3:01 AM EDT) Only the most recent of2 resultswithin the time period is included. pO2, Coox 29 mmHg 10/31/2023 3:03 AM EDT [facility] Hemoglobin, Coox 10.9(L) 13.7 - 16.5 g/dL 10/31/2023 3:03 AM EDT [facility] Oxyhemoglobin, Coox 53.4 % 10/31/2023 3:03 AM EDT [facility] Carboxyhemoglo bin, Coox 0.9 % 10/31/2023 3:03 AM EDT [facility] Comment: Nonsmokers: 0.5-1.5% COHB ?? Smokers: Variable ??but usually less than 10% ?? Toxic: 20-30% COHB ?? Lethal: Greater than 60% COHB Methemoglobin, Coox 0.3 <=1.5 % 10/31/2023 3:03 AM EDT [facility] Blood (Mixed Venous) 10/31/2023 3:01 AM EDT 10/31/2023 3:03 AM EDT Festus Person MD POINT OF CARE TEST ORDERABLES [facility] [place] [address] * (ABNORMAL) Troponin - Single (10/31/2023 1:37 AM EDT) Troponin-T, High Sensitivity 834(H) <=22 ng/L 10/31/2023 2:16 AM EDT [facility] Comment: This patient's troponin T concentration was determined using the [employer] 5th Generation troponin T assay. According to the fourth universal definition of myocardial infarction, the term acute myocardial infarction should be used when there is acute myocardial injury with clinical evidence of acute myocardial ischemia and with detection of a rise and/or fall of cardiac troponin values with at least one value above the 99th percentile and at least one of the following: - Symptoms of myocardial ischemia; - New ischemic ECG changes; - Development of pathological Q waves; - Imaging evidence of new loss of viable myocardium or new regional wall motion ?? abnormality in a pattern consistent with an ischemic etiology; - Identification of a coronary thrombus by angiography or autopsy (not for type 2 or 3 ?? MIs) Serial measurement of troponin and the change in troponin concentration over time (delta) is crucial for the diagnosis of acute myocardial infarction. Guidance on the interpretation of the new 5th Generation Troponin T values and the delta troponin value can be found in the [facility] Test Catalog Troponin - [email or web address]/catalogs/565/files/[email or web address] Reference: Fourth [place] Definition of Myocardial Infarction. Journal of the [place] College [employer] 2018;72:1863-0953 Blood VENOUS BLOOD SPECIMEN / Unknown IP Care Team Draw / Unknown 10/31/2023 1:37 AM EDT 10/31/2023 1:42 AM EDT Festus Person MD CHEMISTRY ORDERABLE S Performing Organization Address City/[facility]/ZIP Co de Phone Number [facility] [place] [address] * Lipoprotein A (10/31/2023 1:37 AM EDT) Lipoprotein(A) June 30 <75 nmol/L 11/03/2023 5:38 PM EDT [facility] Comment: ADDITIONAL INFORMATION Please notice that Lp(a) values are reported in molar units (nmol/L). ??These units are recommended by professional society guidelines and expert opinion statements. ??Measured results and risk thresholds are higher than those generated using mass units (mg/dL). Cardiovascular risk increases starting at 75 nmol/L. Lp(a) >=125 nmol/L is considered a risk enhancing factor by the [place] [employer]. This test has been modified from the byproducts supervisor's instructions. Its performance characteristics were determined by [facility] in a manner consistent with CLIA requirements. This test has not been cleared or approved by the U.S. Food and Drug Administration. Blood VENOUS BLOOD SPECIMEN / Unknown IP Care Team Draw / Unknown 10/31/2023 1:37 AM EDT 10/31/2023 1:42 AM EDT Narrative [facility] - 11/03/2023 5:38 PM EDT Test Performed by: [address] [address] Bus Driver: Hugo Betancourt Ph.D.; CLIA# [id number] Janie Smith MD LAB SEND OUT ORDERAB LES Performing Organization Address City/[facility]/ZIP Co de Phone Number [facility] [address] [place], [place] [address] * (ABNORMAL) Hemoglobin A1c (10/31/2023 1:37 AM EDT) Hemoglobin A1c 9.5(H) 4.3 - 5.6 % 10/31/2023 11:51 AM EDT [facility] Comment: Per ADA guidelines, without clear symptoms of hyperglycemia or a random plasma glucose >199 mg/dL, a single abnormal A1c measurement cannot be used to diagnose diabetes mellitus. The diagnosis must be confirmed by either 1) a concurrent abnormal fasting plasma glucose or impaired response to oral glucose tolerance testing, or 2) an additional abnormal A1c, impaired fasting plasma glucose, or impaired response to oral glucose tolerance testing on a different day. A1c results obtained on patients with altered red blood cell turnover may not be claims customer service representative of glycemic control. Reference Interval: 4.3 - 5.6% 5.7 - 6.4%: Consistent with prediabetes >=6.5%: Consistent with diagnosis of diabetes mellitus Estimated Average Glucose 226 mg/dL 10/31/2023 11:51 AM EDT [facility] Blood VENOUS BLOOD SPECIMEN / Unknown IP Care Team Draw / Unknown 10/31/2023 1:37 AM EDT 10/31/2023 1:42 AM EDT Festus Person MD CHEMISTRY ORDERABLE S Performing Organization Address City/[facility]/ZIP Co de Phone Number [facility] [place] [address] * (ABNORMAL) Hemoglobin (10/30/2023 4:57 PM EDT) Hemoglobin 10.8(L) 13.7 - 16.5 g/dL 10/30/2023 5:51 PM EDT [facility] Blood VENOUS BLOOD SPECIMEN / Unknown IP Care Team Draw / Unknown 10/30/2023 4:57 PM EDT 10/30/2023 5:09 PM EDT Festus Person MD HEMATOLOGY ORDERABL ES Performing Organization Address City/[facility]/ZIP Co de Phone Number [facility] [place] [address] * Platelet count (10/30/2023 10:14 AM EDT) Only the most recent of2 resultswithin the time period is included. Platelet 193 145 - 357 x10(3)/mcL 10/30/2023 12:45 PM EDT [facility] Blood ARTERIAL BLOOD / Unknown 10/30/2023 10:14 AM EDT Comment:Pre-op diagnosis: ASCVD Festus Person MD HEMATOLOGY ORDERABL ES Performing Organization Address [facility] Co de Phone Number [facility] [place] [address] * Fibrinogen (10/30/2023 10:14 AM EDT) Only the most recent of2 resultswithin the time period is included. Fibrinogen 369 200 - 393 mg/dL 10/30/2023 12:13 PM EDT [facility] Comment: A fibrinogen level >100 mg/dL is adequate for hemostasis in most patients without underlying bleeding disorders. Blood ARTERIAL BLOOD / Unknown 10/30/2023 10:14 AM EDT 10/30/2023 12:00 PM EDT Comment:Pre-op diagnosis: ASCVD Festus Person MD HEMATOLOGY ORDERABL ES Performing Organization Address [facility] de Phone Number [facility] [place] [address] * (ABNORMAL) Blood Gas, Venous POC (10/30/2023 10:09 AM EDT) pH, Venous 7.30(L) 7.32 - 7.42 10/30/2023 10:11 AM EDT [facility] PCO2, Venous 47 38 - 58 mmHg 10/30/2023 10:11 AM EDT [facility] PO2, Venous 60 16 - 65 mmHg 10/30/2023 10:11 AM EDT [facility] Bicarbonate, Venous 22.6 22 - 31 mmol/L 10/30/2023 10:11 AM EDT [facility] Base Excess, Venous -3.8(L) 1.9 - 4.5 mmol/L 10/30/2023 10:11 AM [facility] Hemoglobin, Venous 7.9(L) 13.7 - 16.5 g/dL 10/30/2023 10:11 AM [facility] Oxyhemoglobin, Venous 84.6 % 10/30/2023 10:11 AM [facility] Carboxyhemoglobin , Venous 1.0 % 10/30/2023 10:11 AM [facility] Comment: Nonsmokers: 0.5-1.5% COHB ?? Smokers: Variable ??but usually less than 10% ?? Toxic: 20-30% COHB ?? Lethal: Greater than 60% COHB Methemoglobin, Venous 0.2 <=1.5 % 10/30/2023 10:11 AM [facility] Sodium, Venous 131(L) 135 - 145 mmol/L 10/30/2023 10:11 AM [facility] Potassium, Venous 5.4(H) 3.5 - 5.0 mmol/L 10/30/2023 10:11 AM [facility] Chloride, Venous 104 98 - 107 mmol/L 10/30/2023 10:11 AM [facility] Glucose, Venous 124 65 - 199 mg/dL 10/30/2023 10:11 AM [facility] Comment:Glucose Concentratio n >=200 mg/dL plus symptoms is consistent with Diabetes Mellitus. Lactate, Venous 1.2 0.5 - 2.2 mmol/L 10/30/2023 10:11 AM EDT [facility] Ionized Calcium, Venous 0.98(L) 1.15 - 1.33 mmol/L 10/30/2023 10:11 AM [facility] Blood VENOUS BLOOD SPECIMEN / Unknown 10/30/2023 10:09 AM EDT 10/30/2023 10:11 AM EDT Festus Person MD POINT OF CARE TEST ORDERABLES [facility] [place] [address] * ABORH RECHECK (10/30/2023 6:50 AM EDT) ABORH Recheck O POSITIVE 10/30/2023 7:27 AM EDT [facility] Blood VENOUS BLOOD SPECIMEN / Unknown Venipuncture / Unknown 10/30/2023 6:50 AM EDT 10/30/2023 6:50 AM EDT Festus Person MD BLOOD BANK LAB MLE KALYAN [facility] [place] [address] * Transesophageal Echo/OR (10/30/2023 6:04 AM EDT) Anatomical Region Laterality Modality Cardiac Other 10/30/2023 6:04 AM EDT Narrative 10/31/2023 1:50 PM EDT Version: 1 Study ID: [id number] [address] [place] [address] ? OR Transesophageal Echo Report Name: SHOSHANA RUSSO ? Study Date: 10/30/2023, 6: 04 AM : 1975 Age: 47 Years Gender: Male Ordering Physician: FESTUS PERSON Referring Physician: LUIS CHAVARRIA ? Conclusions MORA pre and post CABG surgery. PREOPERATIVE EXAMINATION 1) Left ventricle is of normal size. Left ventricular ejection fraction is estimated visually at 50%. There are inferior wall motion abnormalites as noted in the associated PDF. 2) Right ventricle is mildly dilated. Right ventricular systolic function is mildly decreased. POSTOPERATIVE EXAMINATION: 1) Right ventricular function was variable over the course of the examination in the post operative period. Initially the RV was mildly dilated and mildly hypokinetic. The RV developed worsening systolic function that improved with inotropic support. At the end of the examination period, the RV was mild-moderately hypokinetic. 2) Left ventriculat systolic function is unchanged. Pre Left Ventricle Left ventricle is of normal size. Left ventricular ejection fraction is estimated visually at 50%. There are inferior wall motion abnormalites as noted in the associated PDF. Pre Right Ventricle Right ventricle is mildly dilated. Right ventricular systolic function is mildly decreased. Pre Atria Unable to adequately visualize left atrial appendage. There is no evidence for a patent foramen ovale. Pre Aortic Valve The aortic valve is structurally and functionally normal. Pre Mitral Valve The mitral valve is structurally and functionally normal. There is trace mitral regurgitation. Pre Tricuspid Valve The tricuspid valve is structurally and functionally normal. Pre Pulmonic Valve The pulmonic valve appears to be structurally and functionally normal. Pre Aorta There is grade 3 (atheroma <= 5mm) atheromatous disease in the descending thoracic aorta. Post Right Ventricle Right ventricle is mildly dilated. Right ventricular function was variable over the course of the examination in the post operative period. Initially the RV was mildly dilated and mildly hypokinetic. The RV developed worsening systolic function that improved with inotropic support. At the end of the examination period, the RV was mild-moderately hypokinetic. I ?WMSI ??= ??1.31 ? % Normal ??= ?? 69% X -Cannot Interpret 1 - Normal ? 2 - Hypokinetic ??3 -Akinetic ?4 -Dyskinetic 5 -Aneurysmal ? Segments ? Size 1-2 ?small 3-5 ?moderate 6-14 ?large 15-16 ?diffuse Reading Physician ?Janie Smith MD ?? 10/31/2023, 1: 50 PM Procedure Note Janie Smith MD - 10/31/2023 Version: 1 Study ID: [id number] [address] [place] [address] ORTransesophageal Echo Report Name: SHOSHANA RUSSO Study Date: 10/30/2023,6: 04 AM : 1975 Age: 47 Years Gender: Male Ordering Physician: FESTUS PERSON Referring Physician: LUIS CHAVARRIA Conclusions MOAR pre and post CABG surgery. PREOPERATIVE EXAMINATION 1) Left ventricle is of normal size. Left ventricular ejection fraction is estimated visually at 50%. Thereare inferior wall motion abnormalites as noted in the associated PDF. 2) Right ventricle is mildly dilated. Right ventricular systolic functionis mildly decreased. POSTOPERATIVE EXAMINATION: 1) Right ventricular function was variable over the course of theexamination in the post operative period. Initially the RV was mildly dilated andmildly hypokinetic. The RV developed worsening systolic function that improvedwith inotropic support. At the end of the examination period, the RV was mild-moderately hypokinetic. 2) Left ventriculat systolic function is unchanged. Pre Left Ventricle Left ventricle is of normal size. Left ventricular ejection fraction isestimated visually at 50%. There are inferior wall motion abnormalites as noted inthe associated PDF. Pre Right Ventricle Right ventricle is mildly dilated. Right ventricular systolic function ismildly decreased. Pre Atria Unable to adequately visualize left atrial appendage. There is no evidencefor a patent foramen ovale. Pre Aortic Valve The aortic valve is structurally and functionally normal. Pre Mitral Valve The mitral valve is structurally and functionally normal. There is tracemitral regurgitation. Pre Tricuspid Valve The tricuspid valve is structurally and functionally normal. Pre Pulmonic Valve The pulmonic valve appears to be structurally and functionally normal. Pre Aorta There is grade 3 (atheroma <= 5mm) atheromatous disease in the descendingthoracic aorta. Post Right Ventricle Right ventricle is mildly dilated. Right ventricular function was variableover the course of the examination in the post operative period. Initially theRV was mildly dilated and mildly hypokinetic. The RV developed worseningsystolic function that improved with inotropic support. At the end of theexamination period, the RV was mild-moderately hypokinetic. I WMSI = 1.31 % Normal = 69% X -Cannot Interpret 1 - Normal 2 - Hypokinetic 3 -Akinetic 4-Dyskinetic 5 -Aneurysmal Segments Size 1-2 small 3-5 moderate 6-14 large 15-16 diffuse Reading Physician Janie Smith MD 10/31/2023, 1: 50 PM Festus Person MD ECHO ORDERABLES * Scan Doc: Implantable Devices (10/30/2023 12:00 AM EDT) Narrative 10/30/2023 12:00 AM EDT Ordered by an unspecified provider. 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 Expl anation Advance Directives and Living Will 12/12/2023 11:24 AM NM ADVANCE DIRECTIVE * Attempt Cardiopulmonary Resuscitation - Inpatient (Latest Code Status on File) Date Activated Date Inactivated Comments 2023 12:32 PM 12/21/2023 7:04 PM Question Answer Comments Code Status decision made by: Patient Content of discussion: Okay with CPR and intubat ion * Attempt Cardiopulmonary Resuscitation - Inpatient Date Activated Date Inactivated Comments 10/30/2023 1:00 PM 11/18/2023 4:36 PM Question Answer Comments Code Status decision made by: Patient Content of discussion: pre-op heart surgery * Attempt Cardiopulmonary Resuscitation - Inpatient Date Activated Date Inactivated Comments 10/30/2023 7:28 AM 10/30/2023 1:00 PM Question Answer Comments Code Status decision made by: Patient Content of discussion: full code * Attempt Cardiopulmonary Resuscitation - Inpatient Date Activated Date Inactivated Comments 08/04/2023 10:45 AM 08/04/2023 6:50 PM Question Answer Comments Code Status decision made by: Patient * Attempt Cardiopulmonary Resuscitation - Inpatient Date Activated Date Inactivated Comments 08/04/2023 8:19 AM 08/04/2023 10:45 AM Question Answer Comments Code Status decision made by: Patient Care Teams Cost And Sales Record Supervisor Relationship Specialty Start Date End Date Minesh Wagner PA [facility] [place] [address] PCP - General Internal Medicine 11/21/23
--- OUTSIDE RECORDS SUMMARY | 2024-01-04 13:07 | XMS_ITS | Encounter Summary ---
Author Organization [facility]ly [facility] [place] [address] Care Team Providers Care Shelter Monitor Name Role Phone Minesh Wagner Primary Care Provider + Reason for Visit * Reason Onset Date Comments Post Hospital Discharge 12/29/2023 Carvedil ol Encounter Details Date Type Department Care Team (Late st Contact Info) Description 12/29/2023 Telephone Cardiology at [address] [phone] Alice Araiza RN Post Hospital Discharge (Carvedilol) Social History Tobacco Use Types Packs/Day Years Used Date Smoking Tobacco: Former Cigarettes 1 10 Smokeless Tobacco: Never Alcohol Use Standard Drinks/Week Comments Not Currently 0 (1 standard drink = 0.6 oz pure alcohol) Pt reports I haven't had a beer in months [facility] Utilities Answer Date Recorded In the past 12 months has Xention, gas, oil, or water [employer] threatened to shut off services in your [...] place to sleep or slept in a skilled nursing (including now)? No 06/05/2023 Housing Stability Vital Sign Answer Bertram e Recorded In the last 12 months, was t here a time when you were not able to pay the mortgage or rent on time? No 12/11/2023 In the past 12 months, how m any times have you moved where you were living? 0 12/11/2023 At any time in the past 12 m [facility], were you homeless or living in a skilled nursing (including now)? No 12/11/2023 IPV Inpatient Questions [...] on file documented as of this encounter Miscellaneous Notes * Telephone Encounter - Alice Araiza RN - 12/29/2023 5:01 PM EST Ambrocio called and left vm, asking if he should be on carvedilol. Called back, no answer. Left vm with callback number. Reviewed notes from his recent admission. Ultimately he needs to be seen in clinic soon for f/u andmedication management. Alice Araiza RN documented in this encounter Plan of Treatment Upcoming Encounters Date Type Department Care Team (Late st Contact Info) Description 01/31/2024 9:30 AM EST Office Visit Nephrology [place] [address] Donavon Frey MD [facility] [place] [address] 02/06/2024 1:00 PM EST Office Visit Cardiology at [address] [phone] Adrian Tello MD [facility] [address] 04/25/2024 10:30 AM EST Office Visit Sleep Center at [facility] [address] [place] [address] Maria De Jesus Lange APRN [facility] [place] [address] documented as of this encounter Visit Diagnoses Not on filedocumented in this encounter Care Teams Shelter Monitor Relationship Specialty Start Date End Date Minesh [place] [address] PCP - General Internal Medicine 11/21/23 documented as of this encounter
--- OUTSIDE RECORDS SUMMARY | 2024-01-04 13:07 | XMS_ITS | Encounter Summary ---
Author Organization [facility] [place] [address] Care Team Providers Care It Portfolio Manager Name Role Phone Minesh Wagner Primary Care Provider + Encounter Details Date Type Department Care Team ([facility] st Contact Info) Description 01/01/2024 Telephone Cardiology at [address] [phone] Karen Landrum, DELL Social History Tobacco Use Types Packs/Day Years Used Date Smoking Tobacco: Former Cigarettes 1 10 Smokeless Tobacco: Never Alcohol Use Standard Drinks/Week Comments Not Currently 0 (1 standard drink = 0.6 oz pure alcohol) Pt reports I haven't had a beer in months [facility] Utilities Answer Date Recorded In the past 12 months has [employer], gas, oil, or water [employer] threatened to shut off services in your [...] place to sleep or slept in a penitentiary (including now)? No 06/05/2023 Housing Stability Vital Sign Answer Bertram e Recorded In the last 12 months, was t here a time when you were not able to pay the mortgage or rent on time? No 12/11/2023 In the past 12 months, how m any times have you moved where you were living? 0 12/11/2023 At any time in the past 12 m ont, were you homeless or living in a penitentiary (including now)? No 12/11/2023 IPV Inpatient Questions [...] encounter Miscellaneous Notes * Telephone Encounter - Karen Landrum RN - 01/01/2024 2:52 PM EST Return call to patient. Called from Dialysis asking about his Rx medications. Patient was not available when I called. Left message asking him to call back. Also mentioned he needs to make a f/u appointment. Provided call back number for patient. Karen Landrum RN, BSN Ambulatory Cardiology Department Covering Interventional Cardiology team documented in this encounter Plan of Treatment Upcoming Encounters Date Type Department Care Team (Late st Contact Info) Description 01/31/2024 9:30 AM EST Office Visit Nephrology [place] [phone] Donavon Frey MD [facility] [place] [address] 02/06/2024 1:00 PM EST Office Visit Cardiology at [address] [phone] Adrian Tello MD [facility] [place] [address] 04/25/2024 10:30 AM EST Office Visit Sleep Center at [address] [place] [phone] Maria De Jesus Lange APRN [facility] [place] [place] [address] documented as of this encounter Visit Diagnoses Not on filedocumented in this encounter Care Teams It Portfolio Manager Relationship Specialty Start Date End Date Minesh Wagner PA [facility] [address] PCP - General Internal Medicine 11/21/23 documented as of this encounter
--- OUTSIDE RECORDS SUMMARY | 2024-01-04 13:08 | XMS_ITS | Encounter Summary ---
Author Organization [facility] Address [facility] [place] [address] Care Team Providers Care Ticker Installer Name Role Phone Minesh Wagner Primary Care Provider + Encounter Details Date Type Department Care Team (Latest Contact Info) Description 12/11/2023 Travel Social History Tobacco Use Types Packs/Day Years Used Date Smoking Tobacco: Former Cigarettes 1 10 Smokeless Tobacco: Never Alcohol Use Standard Drinks/Week Comments Not Currently 0 (1 standard drink = 0.6 oz pure alcohol) Pt reports I haven't had a beer in months [facility] Utilities Answer Date Recorded In [...] place to sleep or slept in a jail (including now)? No 06/05/2023 Housing Stability Vital Sign Answer Bertram e Recorded In the last 12 months, was t here a time when you were not able to pay the mortgage or rent on time? No 12/11/2023 In the past 12 months, how m any times have you moved where you were living? 0 12/11/2023 At any time in the past 12 m [facility], were you homeless or living in a jail (including now)? No 12/11/2023 IPV Inpatient Questions [...] as of this encounter Plan of Treatment Upcoming Encounters Date Type Department Care Team (Late st Contact Info) Description 01/31/2024 9:30 AM EST Office Visit Nephrology [place] [address] Donavon Frey MD [facility] [place] [address] 02/06/2024 1:00 PM EST Office Visit Cardiology at [address] [phone] Adrian Tello MD [facility] [place] [address] 04/25/2024 10:30 AM EST Office Visit Sleep Center at [facility] [address] [place] [address] Maria De Jesus Lange, RAMONA [facility] [place] [address] documented as of this encounter Visit Diagnoses Not on filedocumented in this encounter Care Teams Ticker Installer Relationship Specialty Start Date End Date Minesh Wagner PA [facility] [place] [address] PCP - General Internal Medicine 11/21/23 documented as of this encounter
--- OUTSIDE RECORDS SUMMARY | 2024-01-04 13:08 | XMS_ITS | Encounter Summary ---
Author Organization [facility] [place] [address] Care Team Providers Care President [employer] Name Role Phone Minesh Wagner Primary Care Provider + Reason for Referral * Consultation (Routine) - Closed Specialty Diagnoses / Procedures Referred By Martha t Referred To Contact Sleep Center Diagnoses Acute respiratory failure with hypoxia Sylvia Rothman MD [facility] [place] [address] [facility] Sleep Medicine [address] [place] [address] Referral ID Status Reason Start Date Expiration Date V isits Requested Visits Authorized [id number] Closed Specialty Service Requested 12/21/2023 12/20/2024 1 1 * Home Health Care (Routine) - Authorized Specialty Diagnoses / Procedures Referred By Martha vasquez Referred To Contact Diagnoses Congestive heart failure, unspecified HF chronicity, unspecified heart failure type Bailey Meadows MD [facility] [place] [address] [facility] [address] [place] [address] Referral ID Status Reason Start Date Expiration Date Visits Requested Visits Authorized [id number] Authorized Consult, Test & Treat 12/21/2023 06/18/2024 999 999 Reason for Visit * Auth/Cert (Routine) Specialty Diagnoses / Procedures Referred By Contac t Referred To Contact Diagnoses CHF (congestive heart failure) acute renal failure/ fluid overload / anemia Procedures EMERGENCY [place] [address] [facility] Referral ID Status Reason Start Date Expiration Date Visits Re quested Visits Authorized [id number] 1 1 Encounter Details Date Type Department Care Team (Latest Contact Info) Description 2023 9:54 AM EDT - 12/21/2023 4:59 PM EDT Hospital Encounter Medical Specialites Unit Level 1 Wing C at [place] [id number] [place] [address] [place] [address] [place] [address] Congestive heart failure, unspecified HF chronicity, unspecified heart failure type; Hyperkalemia; DONAL (acute kidney injury); Acute respiratory failure with hypoxia Discharge Disposition: Home with VNA Social History Tobacco Use Types Packs/Day Years Used Date Smoking Tobacco: Former Cigarettes 1 10 Smokeless Tobacco: Never Alcohol Use Standard Drinks/Week Comments Not Currently 0 (1 standard drink = 0.6 oz pure alcohol) Pt reports I haven't had a beer in months C Utilities Answer Date Recorded In the past 12 months has [email or web address], oil, or water company threatened to shut [...] any time in the past 12 m [facility], were you homeless or living in a skilled nursing (including now)? No 12/11/2023 [facility] IP[facility] Inpatient Questions Answer Date Recorded Does [...] on file documented as of this encounter Last Filed Vital Signs Vital Sign Reading [...] Mass Index 36.38 2023 10:00 AM EDT documented in this encounter Discharge Summaries * Tremaine Landis MD - 12/21/2023 10:46 AM EDT Patient Name: Hayden Russo Patient Age: 48 y.o. Language: French Race: White Ethnicity: Not nor Admit date: 2023 Discharge date and time: 12/21/2023 Attending Physician: Bailey Meadows MD Discharge Physician: Bailey Meadows MD Follow-up Recommendations for Providers: -Follow up how well the patient is tolerating new Bumex dose -Outpatient sleep study, has night-time oxygen ordered for now -Started on Entresto for GDMT, follow up need for adding Carvedilol/beta jacky -Follow up low TSH with outpatient thyroid labs Inpatient Provider Contact Information: For questions regarding this document or issues relating to this hospitalization on the Medical Service, please contact your inpatient physician through the [facility] [employer] . Issues afterhours and on weekends will be handled by the staff on-call. Discharge Diagnoses (Hospital Problems) and Secondary Diagnoses (Chronic Problems): Active Hospital Problems Diagnosis Metabolic encephalopathy Acute on chronic heart failure with preserved ejection fraction (HFpEF) Acute kidney injury superimposed on chronic kidney disease Hyperkalemia Acute hypercapnic respiratory failure Resolved Hospital Problems No resolved problems to display. Active Non-Hospital Problems Diagnosis Respiratory failure with hypoxia Class 3 severe obesity in adult CKD (chronic kidney disease) DONAL (acute kidney injury) S/P CABG x 3 CAD (coronary artery disease) STEMI (ST elevation myocardial infarction) Diabetes mellitus Hypertension Acute ST elevation myocardial infarction (STEMI) of inferior wall Operations/Major Procedures: Operations: Other Major Procedures: None History of Presentation: 47-year-old gentleman with recent CABG and known renal insufficiency presented initially to [facility] with worsening anasarca and right upper quadrant pain. Patient reports pain in the right anteriorchest for 3 days. This was associated SOB at rest and worse with moving. Patient would go 20 ft in the house and would almost pass out due to exhaustion. Pt decided to call ambulance. Pt does sleep in a recliner at a 45 degree angle and over the last several days patient has noticed he has to sit a bit more upright to feel more comfortable with his breathing. The more upright I sit the better off I feel. Patient reports that at OSH after he received Lasix he had instant relief and the pain in his chest went away. He states that he did not miss any recent doses of his diuretic, Torsemide 40 mg, which he takes daily. No recent travel on plane or car. Since heart surgery, can't drive until 12/16. When discharged, weight was 258 lbs A few days later, weight was 272 lbs Today weight is 294 lbs At the outside hospital EKG shows sinus rhythm at 54 without any acute changes labs were notable for hyperkalemia to 6.7 and chest x-ray showed cardiomegaly with left pleural effusion. At [facility] he got 80 mg of IV Lasix and on EKG there were no changes from baseline. Noncon CT chest abdomen pelvis was obtained did not show any concerning findings. Some gallstones without any obvious inflammation. Patient's repeat BMP at the outside hospital was notable for worsening hyperkalemia to 7.3 but it unclear the timing of this lab draw in relation to the lasix administration. No changes on telemetry, he put out 500 mL after the initial Lasix. He felt a lot better subjectively. Patient denies sharp substernal pain, no dizziness, vomiting, no URI symptoms, or headaches. Pt denies leg numbness or tingling, no changes with urination or stooling. No fevers, chills, night sweats. Hospital Course: # DONAL on CKD # Hyperkalemia # volume overload # acidosis (primarily respiratory) #DONAL on CKD #Cardiorenal syndrome, likely The patient was acidemic, volume overloaded and hyperkalemic on admission. He responded well to high doses of diuretics (120mg lasix) but hyperkalemia was intractable to shift therapy. Although he remained asymptomatic and there were no concerning changes on EKG. A RIJ tunneled dialysis catheter was placed and the patient was initiated on MWF HD with good effect. The patient was able to tolerate the hemodynamic and electrolyte shifts well overall. He did develop restless leg symptoms shortly after initiating dialysis which were treated with ropinirole 0.5mg to good effect. There was also sometemporary bleeding from the dialysis catheter following the second day of dialysis that resolved later in the evening after holding anti-coagulation, sustaining pressure over the site and the addition of a purse string suture by IR. Following resolution of the bleeding, the suture was removed. There have not been any additional bleeding episodes since. The patient was evaluated by Nephrology who determined the patient was now ESRD and will require HD indefinitely going forward. He was set up with a dialysis bed near his home and will follow up with Nephrology. #Acute on chronic HFpEF with severe volume overload #Recent CABG #ASCVD, premature #HTN Patient's initial kidney failure thought to be triggered by cardio-renal physiology in the context of HFpEF exacerbation. Volume status improved with dialysis as well as diuresis with 120mg lasix BIDon non-dialysis days. TTE showed normal LVEF with mild RV dysfunction. Patient was initially on triple therapy with plavix, aspirin and apixiban following recent CABG. Cardiology was consulted and recommended that aspirin could be discontinued. The patient did well from a heart failure standpoint after initiation of HD and lasix. He was started on Entresto for GDMT and appears to not be on a homeB jacky. Losartan was held given concern for hypotension with ongoing dialysis with plans to resum e at discharge. The patients weight decreased from 292 on admission to 253 by the day of discharge.He was kept on telemetry throughout his hospital stay due to hyperkalemia on presentation and history of afib. He will continue dialysis and 6mg Bumex on non-dialysis days. # acute hypoxic hypercarbic respiratory failure, now resolved #Suspect SWAPNIL VBG initially notable for respiratory acidosis on presentation. He initially required 2-4L NC throughout the day and night, eventually transitioning to just night time O2 once more fluid was removed during dialysis. He likely has significant SWAPNIL and has been set up with outpatient sleep medicine. He has been prescribed night-time oxygen but is ambulating without supplemental oxygen at the time ofdischarge. #A-fib with RVR #DVT Atrial fibrillation was well controlled with Amiodarone during the patients admission. -C/w home Amio -c/w apixaban 5 mg BID # Bilateral leg pain and restless Restless leg symptoms began after initiating dialysis. He responded well to 0.5mg Ropinirole with good control of symptoms. He was also given additional iron during dialysis. #DMII Blood sugar was appropriately controlled on a sensitive sliding scale. He will resume home diabetesmedications on discharge including dapagliflozin and home insulin regimen. # Concern for Hypothyroidism The patient was noted to have a low TSH and was initially treated with low dose levothyroxine. He will require outpatient work-up to confirm diagnosis of hypothyroidism. Vital Signs at Discharge: BP: 143/78, Heart Rate: 96, Temp: 36.8 ??C (98.2 ??F), Resp: 16, BMI (Calculated): 41.89 Height: 177.8 cm (5' 10) (12/10/23 1000) Weight: 115 kg (253 lb 8.5 oz) (12/21/23 0600) Functional and Cognitive Status: Alert and oriented, functional ADL's Important Studies and Lab Data: Labs: Last wbc, hgb, hct plt Recent Labs 12/21/23415 WBC 9.18 HGB 8.7* HCT 29.3* Last 3 wbc, hgb, hct plt Recent Labs 12/21/2341512/20/23 0431 12/19/23 0257 WBC 9.18 10.90* 10.66* HGB 8.7* 8.2* 8.3* HCT 29.3* 28.2* 28.6* PLATELET 339 300 261 Last 3 Lytes Recent Labs 12/21/2341512/20/23 0431 12/19/23 0257 NA 135 132* 137 K 4.3 4.0 4.3 CL 97* 95* 98 CO2 27 27 26 BUN 37* 49* 35* CREATININE 3.97* 5.15* 3.35* Last 3 LFTs Recent Labs 12/10/23 1410 11/11/23 0839 10/31/23 1148 10/30/23 0657 09/22/23 1457 AST 23 47* 24 < > 19 ALT 62* 39 14 < > 18 ALKPHOS 107 142* 58 < > 97 BILITOT 0.3 0.3 0.3 < > 0.3 BILIDIR <0.2 <0.2 -- -- 0.1 < > = values in this interval not displayed. Last Ca, Mg, Phos Recent Labs 12/21/23 0416 CALCIUM 9.0 PHOS 3.5 MAGNESIUM 0.91 Last 3 Coags No results for input(s): PT, INR, PTT in the last 168 hours. Recent Results (from the past 72 hour(s)) POC, GLUCOSE Result Value Glucometer, POC 114 POC, GLUCOSE Result Value Glucometer, POC 251 (H) POC, GLUCOSE Result Value Glucometer, POC 190 CBC (with Diff) Result Value White Blood Cell 10.66 (H) Red Blood Cell 3.89 (L) Hemoglobin 8.3 (L) Hematocrit 28.6 (L) Mean Cell Volume 73.5 (L) Mean Cell Hemoglobin 21.3 (L) Mean Cell Hemoglobin Concentration 29.0 (L) Platelet 261 Mean Platelet Volume 10.6 RDW Standard Deviation 54.9 (H) RDW coefficient of variation 20.6 (H) NRBC% auto 0.0 NRBC Absolute <0.01 Neutrophil % 74.0 Neutrophil Absolute (ANC) - Automated 7.90 (H) Lymph % 10.8 Lymph Absolute 1.15 Monocyte % 12.6 Monocyte Absolute 1.34 (H) Eos % 1.4 Eos Absolute 0.15 Basophil % 0.6 Baso Absolute 0.06 Immature Gran % 0.6 Immature Gran Absolute 0.06 (H) Basic Metabolic Panel Result Value Glucose 190 Blood Urea Nitrogen 35 (H) Creatinine 3.35 (H) Sodium 137 Potassium 4.3 Chloride 98 Carbon Dioxide 26 Anion Gap 13 Calcium 8.7 Est Glomerular Filtration Rate - Male 22 Phosphorus Result Value Phosphorus 4.1 Magnesium Result Value Magnesium 0.86 POC, GLUCOSE Result Value Glucometer, POC 210 (H) POC, GLUCOSE Result Value Glucometer, POC 221 (H) POC, GLUCOSE Result Value Glucometer, POC 213 (H) POC, GLUCOSE Result Value Glucometer, POC 254 (H) CBC (with Diff) Result Value White Blood Cell 10.90 (H) Red Blood Cell 3.79 (L) Hemoglobin 8.2 (L) Hematocrit 28.2 (L) Mean Cell Volume 74.4 (L) Mean Cell Hemoglobin 21.6 (L) Mean Cell Hemoglobin Concentration 29.1 (L) Platelet 300 Mean Platelet Volume 10.3 RDW Standard Deviation 55.5 (H) RDW coefficient of variation 20.7 (H) NRBC% auto 0.0 NRBC Absolute <0.01 Neutrophil % 72.3 Neutrophil Absolute (ANC) - Automated 7.89 (H) Lymph % 12.1 Lymph Absolute 1.32 Monocyte % 12.6 Monocyte Absolute 1.37 (H) Eos % 2.0 Eos Absolute 0.22 Basophil % 0.4 Baso Absolute 0.04 Immature Gran % 0.6 Immature Gran Absolute 0.06 (H) Basic Metabolic Panel Result Value Glucose 197 Blood Urea Nitrogen 49 (H) Creatinine 5.15 (H) Sodium 132 (L) Potassium 4.0 Chloride 95 (L) Carbon Dioxide 27 Anion Gap 10 Calcium 8.9 Est Glomerular Filtration Rate - Male 13 Phosphorus Result Value Phosphorus 5.6 (H) Magnesium Result Value Magnesium 0.96 POC, GLUCOSE Result Value Glucometer, POC 205 (H) POC, GLUCOSE Result Value Glucometer, POC 176 POC, GLUCOSE Result Value Glucometer, POC 520 (CRIT) POC, GLUCOSE Result Value Glucometer, POC 309 (H) POC, GLUCOSE Result Value Glucometer, POC 294 (H) POC, GLUCOSE Result Value Glucometer, POC 228 (H) CBC (with Diff) Result Value White Blood Cell 9.18 Red Blood Cell 4.06 (L) Hemoglobin 8.7 (L) Hematocrit 29.3 (L) Mean Cell Volume 72.2 (L) Mean Cell Hemoglobin 21.4 (L) Mean Cell Hemoglobin Concentration 29.7 (L) Platelet 339 Mean Platelet Volume 10.2 RDW Standard Deviation 53.5 (H) RDW coefficient of variation 20.6 (H) NRBC% auto 0.0 NRBC Absolute <0.01 Neutrophil % 76.3 Neutrophil Absolute (ANC) - Automated 7.00 (H) Lymph % 9.8 Lymph Absolute 0.90 Monocyte % 11.0 Monocyte Absolute 1.01 (H) Eos % 2.0 Eos Absolute 0.18 Basophil % 0.5 Baso Absolute 0.05 Immature Gran % 0.4 Immature Gran Absolute 0.04 Basic Metabolic Panel Result Value Glucose 201 (H) Blood Urea Nitrogen 37 (H) Creatinine 3.97 (H) Sodium 135 Potassium 4.3 Chloride 97 (L) Carbon Dioxide 27 Anion Gap 11 Calcium 9.0 Est Glomerular Filtration Rate - Male 18 Phosphorus Result Value Phosphorus 3.5 Magnesium Result Value Magnesium 0.91 Iron and TIBC Result Value Iron 22 (L) TIBC 227 (L) Iron Saturation 10 (L) Ferritin Result Value Ferritin 707 (H) PTH Result Value Parathyroid Hormone 87 (H) POC, GLUCOSE Result Value Glucometer, POC 186 POC, GLUCOSE Result Value Glucometer, POC 289 (H) Microbiology Results (last 7 days) No results found for the last 168 hours. Studies: Results for orders placed or performed during the hospital encounter of 12/10/23 XR Chest One View (Exam End: 2023 1:38 PM) Result Value WORKSTATION ID [id number] Impression Decreased left lower lobe atelectasis. Otherwise stable exam. Thank you for letting us participate in the care of this patient. If you are a health care provider and have any questions regarding this report, please contact the number below. For patients who have questions please contact the health customer care specialist that requested your imaging first. Electronically signed by: WILLY BRAGG MD, [facility] ([phone]), at 2023 5:[address] Chest wo Contrast (Generic) (Exam End: 12/13/2023 5:12 PM) Result Value WORKSTATION ID [id number] Impression 1. Unchanged small left and trace right pleural effusions. 2. Moderate left and mild right lower lobe subsegmental atelectasis. 3. Nonspecific tree-in-bud opacities in the posterior right middle lobe, possible early infectious/inflammatory pulmonary process. 4. Right jugular central venous catheter tip within the right atrium. 5. Soft tissue edema within the midline chest subcutaneous fat and posterior to the sternum, likely postsurgical change following sternotomy. 6. No subcutaneous hematoma. Thank you for letting us participate in the care of this patient. If you are a health care provider and have any questions regarding this report, please contact the number below. For patients who have questions please contact the health customer care specialist that requested your imaging first. Electronically signed by: Minesh Oconnor MD, [facility] ([phone]), at 12/13/2023 5:52 PM XR Chest One View (Exam End: 12/17/2023 5:34 AM) Result Value WORKSTATION ID [id number] Impression 1. No pneumothorax. 2. Pulmonary edema. 3. Cannot distinguish atelectasis from multi lobar left lung consolidation. 4. Mild pinching of the very proximal catheter may reflect suture pressure. Thank you for letting us participate in the care of this patient. If you are a health care provider and have any questions regarding this report, please contact the number below. For patients who have questions please contact the health customer care specialist that requested your imaging first. Electronically signed by: Lidia Khanna MD, [facility] ([phone]), at 12/17/2023 6:01 AM Pending Studies and Lab Data: None Discharge Conditions/Prognosis: Patient seen and examined on the day of discharge and determined kojo medically ready. He was not requiring supplemental oxygen, tolerating eating/drinking, and pain-free. Discharge to: Home Updated Allergies/ADRs: No Known Allergies Immunizations Given this Hospitalization: Immunization History Administered Date(s) Administered Td Adult (not absorbed) 05/19/2003 Discharge Medications: Your Medications New Medications Dose Details bumetanide 2 mg tablet Commonly known as: Bumex Take 3 tablets by mouth 2 times daily. Take only on non-HD days (Monday, Monday, , and Monday) 6 mg Quantity: 96 tablet Refills: 1 lidocaine 5% Adhesive Patch, Medicated Commonly known as: Lidoderm Apply 1 patch onto the skin daily. (leave on for 12 hours and remove for 12 hours) Quantity: 30 patch Refills: 0 rOPINIRole 0.5 mg tablet Commonly known as: Requip Take 1 tablet by mouth nightly. 0.5 mg Quantity: 30 tablet Refills: 1 sacubitriL-valsartan 24-26 mg tablet Commonly known as: Entresto Take 1 tablet by mouth 2 times daily. 1 tablet Quantity: 60 tablet Refills: 1 Continued medications with new dosing Dose Details apixaban 5 mg tablet Commonly known as: Eliquis Take 1 tablet by mouth 2 times daily. What changed: medication strength how much to take 5 mg Quantity: 60 tablet Refills: 1 Continued medications, unchanged Dose Details acetaminophen 500 mg tablet Commonly known as: Tylenol Take 2 tablets by mouth every 6 hours as needed for Pain. 1,000 mg Refills: 0 AMIOdarone 200 mg tablet Commonly known as: Pacerone Take 1 tablet by mouth daily. 200 mg Quantity: 30 tablet Refills: 0 atorvastatin 40 mg tablet Commonly known as: Lipitor Take 1 tablet by mouth every evening for 30 days. Then resume 80mg daily 40 mg Quantity: 30 tablet Refills: 0 blood-glucose meter Kit Commonly known as: FREESTYLE USE TO CHECK GLUCOSE THREE TIMES DAILY Refills: 0 Cholecalciferol (Vitamin D3) 125 mcg (5,000 unit) Capsule Commonly known as: Dialyvite Vitamin D Take 1 capsule by mouth daily. 5,000 Units Quantity: 90 capsule Refills: 3 citalopram 10 mg tablet Commonly known as: CeleXA Take 1 tablet by mouth daily. 10 mg Quantity: 60 tablet Refills: 3 clopidogreL 75 mg tablet Commonly known as: Plavix Take 1 tablet by mouth daily. 75 mg Quantity: 90 tablet Refills: 3 dapagliflozin propanediol 10 mg tablet Commonly known as: Farxiga Take 1 tablet by mouth daily. 10 mg Refills: 0 ferrous sulfate 325 mg (65 mg iron) tablet Commonly known as: FeroSul Take 1 tablet by mouth 3 times daily (with meals). 325 mg Refills: 0 humaLOG KwikPen 100 unit/mL Insulin Pen Inject 0-14 Units subcutaneously 3 times daily (with meals). Generic drug: insulin lispro 0-14 Units Refills: 0 Insulin Basaglar KwikPen U-100 100 unit/mL (3 mL) pen Inject 40 Units subcutaneously daily. Generic drug: insulin glargine 40 Units Refills: 0 OneTouch Ultra Blue Test Strip Strip USE 1 STRIP TO CHECK GLUCOSE THREE TIMES DAILY . Generic drug: blood sugar diagnostic strips Refills: 11 pantoprazole EC [address] tablet Commonly known as: Protonix Take 1 tablet by mouth daily. 40 mg Quantity: 90 tablet Refills: 3 STOPPED Medications aspirin 81 mg chewable tablet losartan 50 mg tablet Commonly known as: Cozaar oxyCODONE 5 mg tablet Commonly known as: Roxicodone torsemide 20 mg tablet Commonly known as: Demadex Smoking Status at Discharge: Social History Tobacco Use Smoking Status Former Current packs/day: 1.00 Average packs/day: 1 pack/day for 10.0 years (10.0 ttl pk-yrs) Types: Cigarettes Smokeless Tobacco Never Last Set of Vitals and range of vitals over past 24 hours: Last value Range last 24 hrs Temperature Temp: 36.8 ??C (98.2 ??F) Temp: [36.8 ??C (98.2 ??F)-37 ??C (98.6 ??F)] Heart Rate Heart Rate: 96 Heart Rate: [61-96] Blood Pressure BP: 143/78 BP: (117-143)/(65-79) Respiratory Rate Resp: 16 Resp: [16-18] SpO2 SpO2: 92 % SpO2: [88 %-99 %] Code Status at Discharge: Attempt Cardiopulmonary Resuscitation - Inpatient Instructions Given to Patient at Discharge: Patient Instructions Patient Instructions on Discharge to Home Why you were hospitalized - You were hospitalized for low oxygen due to excess fluid in your body resulting from heart and kidney disease. This was treated with dialysis while you were in the hospital. You will need to continue dialysis going forward. We have also changed your home diuretic to bumex (bumetanide) which is a stronger diuretic to prevent you from becoming fluid overloaded again. We added a new medication called Entresto to better treat your heart failure. Call your doctor or seek medical attention if you develop the following - chest pain, shortness of breath, passing out, feeling dizzy upon standing, passing out, diarrhea, constipation lasting longerthan 2 days, fevers (temperature over 100.3), chills, abdominal pain, vomiting, difficulty or discomfort when urinating, bloody or black bowel movements, or any other acute or concerning symptom. Driving - Please do not drive if you are feeling dizzy, have blurry vision, feel tired, or feel illin any way. Other Important Instructions Follow-up Appointments Future Appointments Date Time Provider Department Center 01/31/2024 8:00 AM LAB, THREE L Lab 3L [facility]AK[facility] 01/31/2024 9:30 AM Donavon Frey MD [facility] 04/25/2024 10:30 AM Maria De Jesus Lange APRN [facility] Sleep [address] Your Discharge Medication List Your Medications New Medications Dose Details bumetanide 2 mg tablet Commonly known as: Bumex Take 3 tablets by mouth 2 times daily. Take only on non-HD days (Monday, Monday, , and Monday) 6 mg Quantity: 96 tablet Refills: 1 lidocaine 5% Adhesive Patch, Medicated Commonly known as: Lidoderm Apply 1 patch onto the skin daily. (leave on for 12 hours and remove for 12 hours) Quantity: 30 patch Refills: 0 rOPINIRole 0.5 mg tablet Commonly known as: Requip Take 1 tablet by mouth nightly. 0.5 mg Quantity: 30 tablet Refills: 1 sacubitriL-valsartan 24-26 mg tablet Commonly known as: Entresto Take 1 tablet by mouth 2 times daily. 1 tablet Quantity: 60 tablet Refills: 1 Continued medications with new dosing Dose Details apixaban 5 mg tablet Commonly known as: Eliquis Take 1 tablet by mouth 2 times daily. What changed: medication strength how much to take 5 mg Quantity: 60 tablet Refills: 1 Continued medications, unchanged Dose Details acetaminophen 500 mg tablet Commonly known as: Tylenol Take 2 tablets by mouth every 6 hours as needed for Pain. 1,000 mg Refills: 0 AMIOdarone 200 mg tablet Commonly known as: Pacerone Take 1 tablet by mouth daily. 200 mg Quantity: 30 tablet Refills: 0 atorvastatin 40 mg tablet Commonly known as: Lipitor Take 1 tablet by mouth every evening for 30 days. Then resume 80mg daily 40 mg Quantity: 30 tablet Refills: 0 blood-glucose meter Kit Commonly known as: FREESTYLE USE TO CHECK GLUCOSE THREE TIMES DAILY Refills: 0 Cholecalciferol (Vitamin D3) 125 mcg (5,000 unit) Capsule Commonly known as: Dialyvite Vitamin D Take 1 capsule by mouth daily. 5,000 Units Quantity: 90 capsule Refills: 3 citalopram 10 mg tablet Commonly known as: CeleXA Take 1 tablet by mouth daily. 10 mg Quantity: 60 tablet Refills: 3 clopidogreL 75 mg tablet Commonly known as: Plavix Take 1 tablet by mouth daily. 75 mg Quantity: 90 tablet Refills: 3 dapagliflozin propanediol 10 mg tablet Commonly known as: Farxiga Take 1 tablet by mouth daily. 10 mg Refills: 0 ferrous sulfate 325 mg (65 mg iron) tablet Commonly known as: FeroSul Take 1 tablet by mouth 3 times daily (with meals). 325 mg Refills: 0 humaLOG KwikPen 100 unit/mL Insulin Pen Inject 0-14 Units subcutaneously 3 times daily (with meals). Generic drug: insulin lispro 0-14 Units Refills: 0 Insulin Basaglar KwikPen U-100 100 unit/mL (3 mL) pen Inject 40 Units subcutaneously daily. Generic drug: insulin glargine 40 Units Refills: 0 OneTouch Ultra Blue Test Strip Strip USE 1 STRIP TO CHECK GLUCOSE THREE TIMES DAILY . Generic drug: blood sugar diagnostic strips Refills: 11 pantoprazole EC [address] tablet Commonly known as: Protonix Take 1 tablet by mouth daily. 40 mg Quantity: 90 tablet Refills: 3 STOPPED Medications aspirin 81 mg chewable tablet losartan 50 mg tablet Commonly known as: Cozaar oxyCODONE 5 mg tablet Commonly known as: Roxicodone torsemide 20 mg tablet Commonly known as: Demadex Your Inpatient Medical Team at [facility] Name(s) of your inpatient provider(s): Bailey Meadows MD For questions regarding issues relating to your hospitalization on the Hospital Medicine Service, please contact your inpatient physician through the [facility] Home Decorator [phone]. Issues after hours and on weekends will be handled by the Hospitalist staff on-call. Your Primary Care Provider GLENIS Alexandra [phone] General Instructions Future Appointments and Orders Future Appointments and Orders Future Appointments Provider Department Dept Phone 01/31/2024 8:00 AM LAB, THREE L Lab [address] [place] [address] Arrive at: [place] [facility] 3L [phone] 01/31/2024 9:30 AM Donavon Frey MD Nephrology Hypertension at [facility] Arrive at: [place] [facility] [phone] 04/25/2024 10:30 AM Maria De Jesus Lange APRN Sleep Center at [facility] Arrive at: [place] [facility] [address] [place] [phone] Future Orders Complete By Expires Home Oxygen [EQ184 Custom] As directed Process Instructions: Check with vendor to see if additional forms need to be completed. You must submit a copy of the following documents with this Order: 1 - Official results of Pulse Oximetry at Rest and with Exercise that are less than 180 days old 2 - Official results of Nocturnal testing (if performed) 3 - Signed and dated [id number] evaluation documenting the need for Oxygen Scheduling Instructions: Questions: Vendor Name/Contact information: Rate (LPM): 2 Route: Nasal Hours per day of usage: 12 # months service is needed (99= lifetime): 99 Portable needed: No SPO2 performed on Room Air?: No SPO2 performed with Supplemental Oxygen?: No Nocturnal testing performed?: Yes Nocturnal test date: SPO2 < 88% duration (minutes): Lowest Nocturnal SPO2 (%): Oxygen Conserving Device (OCD) needed?: No Home Oxygen [EQ184 Custom] As directed Process Instructions: Check with vendor to see if additional forms need to be completed. You must submit a copy of the following documents with this Order: 1 - Official results of Pulse Oximetry at Rest and with Exercise that are less than 180 days old 2 - Official results of Nocturnal testing (if performed) 3 - Signed and dated [id number] evaluation documenting the need for Oxygen Scheduling Instructions: Questions: Vendor Name/Contact information: Rate (LPM): 2 Route: Nasal Hours per day of usage: 12 # months service is needed (99= lifetime): 99 Portable needed: No SPO2 performed on Room Air?: No SPO2 performed with Supplemental Oxygen?: No Nocturnal testing performed?: Yes Nocturnal test date: 12/20/2023 SPO2 < 88% duration (minutes): 315 Lowest Nocturnal SPO2 (%): 71 Oxygen Conserving Device (OCD) needed?: No Referral to Home Health [REF34 Custom] As directed Process Instructions: If no progress note charted, please enter Clinical details in comments. Scheduling Instructions: Comments: Please evaluate Hayden Russo for admission to Home Health. [address] [place] [id number] Phone Number: [phone] (home) Date of : 1975 Inpatient DOCUMENTATION FOR VNA SERVICES (INCLUDING THOSE PATIENTS WITH MEDICARE COVERAGE REQUIRING HOME VNA SERVICES AND/OR HOSPICE SERVICES) PATIENT'S LOCATION: Hayden Russo [address] [address] [phone] (home) Cell: Telephone Information: Vascular Surgery Physician's Name: self In discussion with the attending physician, it is certified that this patient is under their care and that they, or a Nurse Practitioner, Clinical Nurse specialist or Physician Rn First Assistant who is working directly with them, had a face to face encounter that meets the physician face to face encounter requirements with this patient on 12/21/23 (MD please enter DC date here) The encounter with the patient was in whole, or in part, for the following medical condition, whichis the primary reason for home health care services: Heart failure exacerbation In discussion with the provider, it is certified that, based on their findings, the following services are medically necessary for home health services. To provide the following care/treatments with the clinical findings supporting the need for services as follows: HOME CARE ORDERS: RN ORDERS: Assess vital signs, cardiopulmonary status, nutrition, hydration, elimination -Additional Orders: Monitor medication effectiveness and management and Reinforce education regarding health issues PT ORDERS: Continue rehab for endurance, gait stability and strength with mobility and transfers. Home safety evaluation. Home exercise program if appropriate. OT ORDERS: Assess and continue rehab for managing ADLs. HOME HEALTH CARE AGENCY: [facility] - A [address] [place] [address] and START OF CARE: within 24-48 hours of discharge Please note that any additional orders needs or changes will need to be obtained from this patient's PCP: GLENIS Alexandra DR / [facility] [id number] . All A agencies which cover the area of patient's residence have been reviewed, either verbally or in writing, andpatient/family have chosen the home health care agency noted. Questions: Disciplines Requested: Nursing Referral to Sleep Disorders Center [REF99 Custom] As directed Process Instructions: If no progress note charted, please enter Clinical details in comments. Scheduling Instructions: Comments: Please select a template from this list below: I am referring to Sleep Medicine my 48 y.o. male patient Hayden Russo for evaluation of possible sleep apnea. Has the patient been evaluated by [facility] within the last 3 years? no Has the patient had previous sleep consultation and/or testing at another facility (Please ensure previous sleep evaluation and sleep studies are scanned into eD)? no If recent weight gain, please obtain a TSH. Lab Results Component Value Date TSH 10.70 (H) 2023 TSH 3.68 06/04/2023 The most current assessment of this problem can be found in the note dated 12/20/2023 My clinical question: Concern for SWAPNIL Pending specialist evaluation, I anticipate (Choose One): [X] Consultation, Recommendations & Return to Primary Care Do not type below here [id number] Questions: My question or request is: See comment Provider Contact Information: GLENIS Alexandra DR / [facility] [id number] Discharge References/Attachments Potassium-Restricted Diet (French) documented in this encounter Discharge Instructions * Discharge Instructions* John Katz MD - 12/11/2023 10:23 AM EDT * Patient Instructions* Tremaine Landis MD - 12/21/2023 1:41 PM EDT Patient Instructions on Discharge to Home Why you were hospitalized - You were hospitalized for low oxygen due to excess fluid in your body resulting from heart and kidney disease. This was treated with dialysis while you were in the hospital. You will need to continue dialysis going forward. We have also changed your home diuretic to bumex (bumetanide) which is a stronger diuretic to prevent you from becoming fluid overloaded again. We added a new medication called Entresto to better treat your heart failure. Call your doctor or seek medical attention if you develop the following - chest pain, shortness of breath, passing out, feeling dizzy upon standing, passing out, diarrhea, constipation lasting longerthan 2 days, fevers (temperature over 100.3), chills, abdominal pain, vomiting, difficulty or discomfort when urinating, bloody or black bowel movements, or any other acute or concerning symptom. Driving - Please do not drive if you are feeling dizzy, have blurry vision, feel tired, or feel illin any way. Other Important Instructions Follow-up Appointments Future Appointments Date Time Provider Department Center 01/31/2024 8:00 AM LAB, THREE L Lab 3L NAZIA BARAKAT 01/31/2024 9:30 AM Donavon Frey MD [facility] NEPH [facility] 04/25/2024 10:30 AM Maria De Jesus Lange APRN [facility] [address] Your Discharge Medication List Your Medications New Medications Dose Details bumetanide 2 mg tablet Commonly known as: Bumex Take 3 tablets by mouth 2 times daily. Take only on non-HD days (Monday, Monday, , and Monday) 6 mg Quantity: 96 tablet Refills: 1 lidocaine 5% Adhesive Patch, Medicated Commonly known as: Lidoderm Apply 1 patch onto the skin daily. (leave on for 12 hours and remove for 12 hours) Quantity: 30 patch Refills: 0 rOPINIRole 0.5 mg tablet Commonly known as: Requip Take 1 tablet by mouth nightly. 0.5 mg Quantity: 30 tablet Refills: 1 sacubitriL-valsartan 24-26 mg tablet Commonly known as: Entresto Take 1 tablet by mouth 2 times daily. 1 tablet Quantity: 60 tablet Refills: 1 Continued medications with new dosing Dose Details apixaban 5 mg tablet Commonly known as: Eliquis Take 1 tablet by mouth 2 times daily. What changed: medication strength how much to take 5 mg Quantity: 60 tablet Refills: 1 Continued medications, unchanged Dose Details acetaminophen 500 mg tablet Commonly known as: Tylenol Take 2 tablets by mouth every 6 hours as needed for Pain. 1,000 mg Refills: 0 AMIOdarone 200 mg tablet Commonly known as: Pacerone Take 1 tablet by mouth daily. 200 mg Quantity: 30 tablet Refills: 0 atorvastatin 40 mg tablet Commonly known as: Lipitor Take 1 tablet by mouth every evening for 30 days. Then resume 80mg daily 40 mg Quantity: 30 tablet Refills: 0 blood-glucose meter Kit Commonly known as: FREESTYLE USE TO CHECK GLUCOSE THREE TIMES DAILY Refills: 0 Cholecalciferol (Vitamin D3) 125 mcg (5,000 unit) Capsule Commonly known as: Dialyvite Vitamin D Take 1 capsule by mouth daily. 5,000 Units Quantity: 90 capsule Refills: 3 citalopram 10 mg tablet Commonly known as: CeleXA Take 1 tablet by mouth daily. 10 mg Quantity: 60 tablet Refills: 3 clopidogreL 75 mg tablet Commonly known as: Plavix Take 1 tablet by mouth daily. 75 mg Quantity: 90 tablet Refills: 3 dapagliflozin propanediol 10 mg tablet Commonly known as: Farxiga Take 1 tablet by mouth daily. 10 mg Refills: 0 ferrous sulfate 325 mg (65 mg iron) tablet Commonly known as: FeroSul Take 1 tablet by mouth 3 times daily (with meals). 325 mg Refills: 0 humaLOG KwikPen 100 unit/mL Insulin Pen Inject 0-14 Units subcutaneously 3 times daily (with meals). Generic drug: insulin lispro 0-14 Units Refills: 0 Insulin Basaglar KwikPen U-100 100 unit/mL (3 mL) pen Inject 40 Units subcutaneously daily. Generic drug: insulin glargine 40 Units Refills: 0 OneTouch Ultra Blue Test Strip Strip USE 1 STRIP TO CHECK GLUCOSE THREE TIMES DAILY . Generic drug: blood sugar diagnostic strips Refills: 11 pantoprazole EC [address] tablet Commonly known as: Protonix Take 1 tablet by mouth daily. 40 mg Quantity: 90 tablet Refills: 3 STOPPED Medications aspirin 81 mg chewable tablet losartan 50 mg tablet Commonly known as: Cozaar oxyCODONE 5 mg tablet Commonly known as: Roxicodone torsemide 20 mg tablet Commonly known as: Demadex Your Inpatient Medical Team at [facility] Name(s) of your inpatient provider(s): Bailey Meadows MD For questions regarding issues relating to your hospitalization on the Hospital Medicine Service, please contact your inpatient physician through the [facility] Home Decorator [phone]. Issues after hours and on weekends will be handled by the Hospitalist staff on-call. Your Primary Care Provider GLENIS Alexandra [phone] * Attachments The following attachments cannot be sent through Care Everywhere. * Potassium-Restricted Diet (French) documented in this encounter Medications at Time of Discharge Medication Sig Dispensed Refills Start Date End Date apixaban (Eliquis) 5 mg tablet Take 1 tablet by mouth 2 times daily. 60 tablet 1 12/21/2023 atorvastatin (Lipitor) 40 mg tablet Take 1 tablet by mouth every evening for 30 days. Then resume 80mg daily 30 tablet 12/21/2023 01/20/2024 bumetanide (Bumex) 2 mg tablet Take 3 tablets by mouth 2 times daily. Take only on non-HD days (Monday, Monday, , and Monday) 96 tablet 1 12/21/2023 lidocaine (Lidoderm) 5% Adhesive Patch, Medicated Apply 1 patch onto the skin daily. (leave on for 12 hours and remove for 12 hours) 30 patch 12/21/2023 rOPINIRole (Requip) 0.5 mg tablet Take 1 tablet by mouth nightly. 30 tablet 1 12/21/2023 sacubitriL-valsartan (Entresto) 24-26 mg tablet Take 1 tablet by mouth 2 times daily. 60 tablet 1 12/21/2023 Cholecalciferol, Vitamin D3, (Dialyvite Vitamin D) 125 mcg (5,000 unit) Capsule Take 1 capsule by mouth daily. 90 capsule 3 11/27/2023 dapagliflozin propanediol (Farxiga) 10 mg tablet Take 1 tablet by mouth daily. 11/27/2023 Insulin Basaglar KwikPen U-100 100 unit/mL (3 mL) pen Inject 40 Units subcutaneously daily. 11/18/2023 humaLOG KwikPen 100 unit/mL Insulin Pen Inject 0-14 Units subcutaneously 3 times daily (with meals). 11/18/2023 acetaminophen (Tylenol) 500 mg tablet Take 2 tablets by mouth every 6 hours as needed for Pain. 11/18/2023 AMIOdarone (Pacerone) 200 mg tablet Take 1 tablet by mouth daily. 30 tablet 11/18/2023 clopidogreL (Plavix) 75 mg tablet Take 1 tablet by mouth daily. 90 tablet 3 11/19/2023 citalopram (CeleXA) 10 mg tablet Take 1 tablet by mouth daily. 60 tablet 3 11/19/2023 ferrous sulfate (FeroSul) 325 mg (65 mg iron) tablet Take 1 tablet by mouth 3 times daily (with meals). 11/18/2023 pantoprazole EC (Protonix) [address] tablet Take 1 tablet by mouth daily. 90 tablet 3 06/07/2023 blood-glucose meter (FREESTYLE) Kit USE TO CHECK GLUCOSE THREE TIMES DAILY 0 07/18/2018 ONETOUCH ULTRA BLUE TEST STRIP Strip USE 1 STRIP TO CHECK GLUCOSE THREE TIMES DAILY . 11 11/01/2018 documented as of this encounter Progress Notes * Alice Stewart MD - 12/21/2023 4:59 PM EDT This patient was seen in conjunction with Nerissa Cuellar APRN. I performed the majority of this shared visit based on decision making. Alice Stewart MD * Tera Villalta - 12/21/2023 4:59 PM EDT Office of Care Management/Marketing Underwriter Name: Hayden Russo Presenting Issue: Patient referral for outpatient dialysis placement. Patient has been approved for outpatient dialysis at the [facility] unit. The patient can start treatments on Monday, December 21. The patient will have a schedule of Monday, Monday, and Monday at 122.. Transportation to outpatient dialysis will be provided by family or friend\. Plan: This office will be available to the patient, Emblem Drawer In-RN and Head Athletic Trainer/Strength Coach as needed. Dialysis Unit Address: [facility] Basic Information Address: [address] [place] [address] Tera Villalta Marketing Underwriter * Nerissa Cuellar APRN - 12/21/2023 9:58 AM EDT PATIENT: Hayden Russo : 1975 NEPHROLOGY PROGRESS NOTE Hayden Russo is a 48 y.o. male with ESRD on dialysis. Consulted for hemodialysis management Interval History: - No acute events overnight. - Patient seen and evaluated in person at bedside. - Lab and metabolic parameters reviewed. - Complained of pain at dialysis catheter site. PE: General: Alert, comfortable. Cooperative with exam. CV: HR regular. Resp: Lungs clear anteriorly. Respirations non labored. Ext: Warm. No cyanosis. Trace edema in right ankle. Neuro: Alert and oriented x4. Assessment and Recommendations: Hayden Russo is a 48 y.o. male with ESRD on dialysis. Nephrology consulted for hemodialysis management. Feeling well today, c/o ongoing pain at dialysis catheter site. Denies shortness of breath, N/V. Nodistress lying nearly flat. Anticipating discharge home today and will begin dialysis at [facility] tomorrow. 1) ESRD on hemodialysis- Patient seen and evaluated at bedside. No apparent indication for urgent dialysis today. Outpatient dialysis orders have been sent to his clinic. Access - Right chest tunneled dialysis catheter. Mild bruising present. No redness or drainage. Still painful. Please avoid NSAIDs, contrast, nephrotoxins and dose adjust renally toxic medications as able. 2) Anemia - Hgb below goal and iron stores inadequate. Will be managed by outpatient dialysis after discharge. 3) Bone and mineral - Calcium, phosphorous, and PTH acceptable. 4) Acid-base - No metabolic acidosis appreciated 5) Electrolytes - Potassium and sodium in range. 6) Hemodynamics - Minimal edema. BP controlled. He continues respond to diuresis. Recommend transitioning to oral diuretic on non dialysis days. MEDICATIONS: bumetanide 6 mg Oral 2 times per day on Monday lidocaine 1 patch Transdermal Q24H sacubitriL-valsartan 1 tablet Oral BID apixaban 5 mg Oral BID rOPINIRole 0.5 mg Oral Nightly levothyroxine 25 mcg Oral QAM AMIOdarone 200 mg Oral Daily atorvastatin 40 mg Oral QPM citalopram 10 mg Oral Daily clopidogreL 75 mg Oral Daily pantoprazole EC 40 mg Oral Daily sodium chloride 0.9 % (flush) 5 mL Intravenous BID insulin lispro 1-4 Units Subcutaneous TID AC insulin lispro 0-8 Units Subcutaneous TID WC senna-docusate 2 tablet Oral BID No Known Allergies PHYSICAL EXAM: Last value Temperature Temp: 37 ??C (98.6 ??F) Heart Rate Heart Rate: 93 Blood Pressure BP: 132/72 Respiratory Rate Resp: 16 SpO2 SpO2: 93 % STUDIES: Labs: CBC: Recent Labs 12/21/2341512/20/2343012/19/23256 WBC 9.18 10.90* 10.66* HGB 8.7* 8.2* 8.3* PLATELET 339 300 261 Chemistry: Recent Labs 12/21/2341512/20/2343012/19/23 0257 NA 135 132* 137 K 4.3 4.0 4.3 CL 97* 95* 98 CO2 27 27 26 BUN 37* 49* 35* CREATININE 3.97* 5.15* 3.35* GLUCOSE 201* 197 190 Recent Labs 12/21/23 0416 12/20/23 0431 12/19/23 0257 CALCIUM 9.0 8.9 8.7 MAGNESIUM 0.91 0.96 0.86 PHOS 3.5 5.6* 4.1 LFT's: Recent Labs 12/10/23 1410 11/27/23 0756 11/11/23 0839 10/31/23 1148 10/30/23 0657 09/22/23 1457 BILITOT 0.3 -- 0.3 0.3 < > 0.3 BILIDIR <0.2 -- <0.2 -- -- 0.1 ALBUMIN 3.4 3.5 2.7* 2.9* < > 3.8 ALKPHOS 107 -- 142* 58 < > 97 ALT 62* -- 39 14 < > 18 AST 23 -- 47* 24 < > 19 < > = values in this interval not displayed. Nerissa Cuellar, RAMONA Section of Nephrology Pager [phone] * Tremaine Landis MD - 12/21/2023 8:55 AM EDT Certificate of Medical Necessity Nocturnal Oxygen Hayden Russo is requiring HOME OXYGEN due to the diagnosis of HYPOXEMIA and class 3 severe obesity. Oxygen is required: at bedtime Lowest % SPO2 71 Total Time Spend Below 88% or less 315 minutes O2 Sats collected by: Nabeel Overnight Readings * Xin Llamas RCP - 12/21/2023 5:21 AM EDT Overnight Oximetry performed Qualifying For: Oxygen Qualification Oximetry performed on: RA Oxygen Changes: Titrated up to 2L NC at 0326 Results have been uploaded to patients EMR (Chart review, [employer]) * Kelsy Edmondson, RN - 12/20/2023 11:37 AM EDT Images from the original note were not included. During VAS Purposeful Rounding, an assessment of your patient's venous access was performed fby theVascular Access Service. The following tasks were performed if needed and communicated to the bedside RN Choose all that apply: [x] PIV(s) checked for patency if daily need for flush needs to be performed [x] CVAD was checked for patency if daily flush needs to be performed [x] IV tubing clamped or capped if needed [x] Visual inspection of your patient's central line dressing integrity [] Review of indications for vascular access [x] A photo was taken of your patient's central line [x] Visual inspection of your patient's IV dressing integrity [] Other While rounding an intervention was needed and communicated to the bedside RN Choose all that apply: [] Nonocclusive IV dressing addressed [] Nonocclusive CVAD dressing (please identify type of line) [] Infusion site leaking [] IV not patent and removed [] IV not indicated [] IV placed [] IV restarted [] Implanted Port, PICC or ML dressing changed if needed (either PRN or weekly) [x] Other :routine check * Alice Stewart MD - 12/20/2023 11:30 AM EDT This patient was seen in conjunction with Nerissa Cuellar APRN. I performed the majority of this shared visit based on decision making. Alice Stewart MD * Nerissa Cuellar APRN - 12/20/2023 10:01 AM EDT PATIENT: Hayden Russo : 1975 NEPHROLOGY PROGRESS NOTE Hayden Russo is a 48 y.o. male with ESRD on dialysis. Consulted for hemodialysis management Interval History: - No acute events overnight. - Patient seen and evaluated in person at bedside. - Lab and metabolic parameters reviewed. - Without complaints. Assessment and Recommendations: Hayden Russo is a 48 y.o. male with ESRD on dialysis. Nephrology consulted for hemodialysis management. No new complaints. Denies pain, shortness of breath, N/V. No distress lying nearly flat. 1) ESRD on hemodialysis- Patient seen and evaluated while on dialysis. Tolerating UF removal of 2L with SBP in 130s. Plan next treatment on Thursday 12/21. Current prescription: 3 hours, Na 140, K per protocol, Bicarb 35, T36, BFR 450, DFR 1.5x BFR. F160 dialyzer, UF goal 1-3L as tolerated based on BP. Access - Right chest tunneled dialysis catheter. No redness or drainage. Please avoid NSAIDs, contrast, nephrotoxins and dose adjust renally toxic medications as able. 2) Anemia - Hgb below goal. Receiving Epogen with dialysis. Will recheck iron studies. 3) Bone and mineral - Calcium in range. Phosphorous mildly elevated. If phos remains < 5.5, recommend Sevelamer 800mg, three times daily with meals. Will check PTH. 4) Acid-base - No metabolic acidosis appreciated 5) Electrolytes - Potassium and sodium acceptable. 6) Hemodynamics - BP controlled. Trace lower leg edema improving. He continues to have some response to diuresis. Continue furosemide 120mg IV on non dialysis days. Can transition to oral and continue at discharge. MEDICATIONS: furosemide 120 mg Intravenous BID [START ON 12/21/2023] furosemide 120 mg Intravenous 2 times per day on Monday lidocaine 1 patch Transdermal Q24H sacubitriL-valsartan 1 tablet Oral BID apixaban 5 mg Oral BID rOPINIRole 0.5 mg Oral Nightly levothyroxine 25 mcg Oral QAM AMIOdarone 200 mg Oral Daily atorvastatin 40 mg Oral QPM citalopram 10 mg Oral Daily clopidogreL 75 mg Oral Daily pantoprazole EC 40 mg Oral Daily sodium chloride 0.9 % (flush) 5 mL Intravenous BID insulin lispro 1-4 Units Subcutaneous TID AC insulin lispro 0-8 Units Subcutaneous TID WC senna-docusate 2 tablet Oral BID No Known Allergies PHYSICAL EXAM: Last value Temperature Temp: 36.2 ??C (97.2 ??F) Heart Rate Heart Rate: 88 Blood Pressure BP: 131/73 Respiratory Rate Resp: 16 SpO2 SpO2: 93 % STUDIES: Labs: CBC: Recent Labs 12/20/2343012/19/23 0257 12/18/23 1331 12/18/23 0041 WBC 10.90* 10.66* -- 10.57* HGB 8.2* 8.3* 8.2* 8.1* PLATELET 300 261 -- 211 Chemistry: Recent Labs 12/20/2343012/19/23 0257 12/18/23 0041 NA 132* 137 137 K 4.0 4.3 4.0 CL 95* 98 98 CO2 27 26 28 BUN 49* 35* 51* CREATININE 5.15* 3.35* 3.00* GLUCOSE 197 190 227* Recent Labs 12/20/2343012/19/23 0257 12/18/23 0041 CALCIUM 8.9 8.7 8.6 MAGNESIUM 0.96 0.86 0.83 PHOS 5.6* 4.1 4.1 LFT's: Recent Labs 12/10/23 1410 11/27/23 0756 11/11/23 0839 10/31/23 1148 10/30/23 0657 09/22/23 1457 BILITOT 0.3 -- 0.3 0.3 < > 0.3 BILIDIR <0.2 -- <0.2 -- -- 0.1 ALBUMIN 3.4 3.5 2.7* 2.9* < > 3.8 ALKPHOS 107 -- 142* 58 < > 97 ALT 62* -- 39 14 < > 18 AST 23 -- 47* 24 < > 19 < > = values in this interval not displayed. Nerissa Cuellar, RAMONA Section of Nephrology Pager [phone] * Tremaine Landis MD - 12/20/2023 9:58 AM EDT [facility] - Red Team Inpatient Progress Note ID: Hayden Russo is a 48 y.o. year old male with past medical history of STEMI (treated withprimary PCI in 2019), CKD (baseline Cr ~2.5, previously required renal replacement therapy with CVVH), recent CABG with Dr. Dutta 11/13, DMII admitted on 2023 ( Hospital Day 10 days ) for decompensated HFpEF with marked volume overload, acute hypercarbic respiratory failure, and DONAL on CKD with refractory hyperkalemia. Active Hospital Problems Diagnosis Metabolic encephalopathy Acute on chronic heart failure with preserved ejection fraction (HFpEF) Acute kidney injury superimposed on chronic kidney disease Hyperkalemia Acute hypercapnic respiratory failure Resolved Hospital Problems No resolved problems to display. Interval History / Subjective: -Had difficulty sleeping overnight, received 50mg Seroquel. -Pain over catheter site and leg discomfort controlled -denies any shortness of breath or worsening swelling today -Hemodialysis today Meds: furosemide 120 mg Intravenous BID [START ON 12/21/2023] furosemide 120 mg Intravenous 2 times per day on Monday lidocaine 1 patch Transdermal Q24H sacubitriL-valsartan 1 tablet Oral BID apixaban 5 mg Oral BID rOPINIRole 0.5 mg Oral Nightly levothyroxine 25 mcg Oral QAM AMIOdarone 200 mg Oral Daily atorvastatin 40 mg Oral QPM citalopram 10 mg Oral Daily clopidogreL 75 mg Oral Daily pantoprazole EC 40 mg Oral Daily sodium chloride 0.9 % (flush) 5 mL Intravenous BID insulin lispro 1-4 Units Subcutaneous TID AC insulin lispro 0-8 Units Subcutaneous TID WC senna-docusate 2 tablet Oral BID PRN medications sodium chloride 0.9%, epoetin sha-epbx, HYDROmorphone, albuteroL, rOPINIRole, diphenhydrAMINE, QUEtiapine, acetaminophen, sodium chloride 0.9 % (flush), lidocaine, glucose 40% oral geL OR dextrose OR glucagon, polyethylene glycoL (MIRALAX) oral powder AND bisacodyL AND bisacodyL EC AND lactulose AND lactulose AND magnesium citrate AND Tap water enema, ondansetron Physical Exam: Last value Range last 24 hrs Temperature Temp: 36.2 ??C (97.2 ??F) Temp: [36.2 ??C (97.2 ??F)-36.8 ??C (98.2 ??F)] Heart Rate Heart Rate: 88 Heart Rate: [82-89] Blood Pressure BP: 131/73 BP: (100-131)/(55-73) Respiratory Rate Resp: 16 Resp: [14-16] SpO2 SpO2: 93 % SpO2: [88 %-98 %] Intake/Output Summary (Last 24 hours) at 12/20/2023 0958 Last data filed at 12/20/2023 0308 Gross per 24 hour Intake 1100 ml Output 100 ml Net 1000 ml Patient Vitals for the past 168 hrs: Weight 12/20/23 06 115.3 kg (254 lb 3.1 oz) 12/19/23 06 114.4 kg (252 lb 3.3 oz) 12/18/23 0527 116.2 kg (256 lb 3.2 oz) 12/16/23 0600 117.2 kg (258 lb 6.4 oz) 12/15/23 0343 121 kg (266 lb 12.1 oz) 12/14/23 0600 127.1 kg (280 lb 3.3 oz) Admit wt: 132.45 kg Physical Exam: Gen: AOx4, NAD, pleasant HEENT: anicteric, EOMI CV: RRR, no murmurs Resp: Normal work of breathing, CTAB anteriorly Abd: normal bowel sounds, soft, non-tender Ext: trace B/L lower ext edema (improving) Skin: no rashes, lesions, or ulcerations noted Neuro: CN II-XII grossly intact, moves all extremities spontaneously Labs: Recent Labs 12/20/23 0431 12/19/2325612/18/23 1331 12/18/23 0041 WBC 10.90* 10.66* -- 10.57* HGB 8.2* 8.3* 8.2* 8.1* HCT 28.2* 28.6* 28.0* 27.7* PLATELET 300 261 -- 211 Recent Labs 12/20/23 0431 12/19/23 0257 12/18/23 0041 NA 132* 137 137 K 4.0 4.3 4.0 CL 95* 98 98 CO2 27 26 28 BUN 49* 35* 51* CREATININE 5.15* 3.35* 3.00* GLUCOSE 197 190 227* Recent Labs 12/20/23 0431 12/19/23 0257 12/18/23 0041 CALCIUM 8.9 8.7 8.6 MAGNESIUM 0.96 0.86 0.83 PHOS 5.6* 4.1 4.1 No results for input(s): AST, ALT, ALKPHOS, BILITOT, BILIDIR in the last 168 hours. Other significant labs: Imaging: Results for orders placed or performed during the hospital encounter of 12/10/23 XR Chest One View (Exam End: 2023 1:38 PM) Result Value WORKSTATION ID [id number] Impression Decreased left lower lobe atelectasis. Otherwise stable exam. CT Chest wo Contrast (Generic) (Exam End: 12/13/2023 5:12 PM) Result Value WORKSTATION ID [id number] Impression 1. Unchanged small left and trace right pleural effusions. 2. Moderate left and mild right lower lobe subsegmental atelectasis. 3. Nonspecific tree-in-bud opacities in the posterior right middle lobe, possible early infectious/inflammatory pulmonary process. 4. Right jugular central venous catheter tip within the right atrium. 5. Soft tissue edema within the midline chest subcutaneous fat and posterior to the sternum, likely postsurgical change following sternotomy. 6. No subcutaneous hematoma. TTE 12/11/23: Technically limited exam due to poor acoustic windows. -Wall thickness is mildly increased. Global left ventricular systolic function is probably normal. Left ventricular ejection fraction is estimated visually at 60% with inferior wall motion abnormality. The apex and mid anterior/anterolateral wall are [...] is not well visualized on today's exam. Microbiology: Microbiology Results (Last 30 days) No results found for the last 720 hours. Assessment and Plan: Hayden Russo is a 48 y.o. year old male with past medical history of COLLINS (treated with primary PCI in 2019), CKD (baseline Cr ~2.5, previously required renal replacement therapy with CVVH), recent CABG with Dr. Dutta 11/13, DMII admitted on 2023 ( Hospital Day 10 days ) for decompensated HFpEF with marked volume overload, acute hypercarbic respiratory failure, metabolic encephalopathy, and DONAL on CKD with refractory hyperkalemia requiring urgent initiation of HD on 12/10. Now doing well following successive HD treatments and aggressive volume removal. It remains TBD whether he will need ongoing HD going forward, but his good UOP and stable Cr in interdialytic period suggest that he may not. Course complicated by bleeding from TDC site that has since resolved. Triple therapy discontinued. Plavix and apixaban to stay on, discontinued aspirin. 12/18: HD today, has outpatient HD bed scheduled for Monday. Cr up-trended significantly during inter-dialytic period (3.3->5). Per Nephrology, will require HD indefinitely. Diuresing on non-dialysis days with 6mg Bumex. Restless leg symptoms significantly improved from prior on ropinirole, will continue this dose going forward for dialysis related restless leg symptoms. Continues to have some pain over catheter site that is controlled with current pain regimen. Will forego dilaudid during the night due to concern that it will worsen SWAPNIL. Plan for outpatient CPAP referral. Pain over catheter improved after suture removal. No edema, hematoma or erythema noted over the area. Patient able to walk around the floor without supplemental oxygen today. Plan for discharge tomorrow following dialysis today. # DONAL on CKD # Hyperkalemia # volume overload # acidosis (primarily respiratory) #DONAL on CKD #Cardiorenal syndrome, likely -HD started urgently 12/10 -ongoing HD per Nephrology -diuresis on non-HD days 120mg Lasix switched to 6mg Bumex -Monitor Cr and UOP in inter-dialytic period -Renally dose medications -Close monitoring of electrolytes -Renal diet, Nutrition consult for dietary education #Acute on chronic HFpEF with severe volume overload #Recent CABG #ASCVD, premature #HTN -receiving iHD since 12/10 -diuresis with 6mg Bumex on non-dialysis days -resume apixaban -continue plavix -dc aspirin as triple therapy is no longer indicated -C/w home atorvastatin -HOLDING home losartan -TTE findings above -Daily weights -Strict I's and O's -Tele # acute hypoxic hypercarbic respiratory failure, now resolved -likely due to combination of SWAPNIL, OHS, and acute CHF -improving clinically with volume removal with HD -repeat blood gas if concern for worsening hypercarbia -wean oxygen as able # bleeding from TDC site-resolved -CTM #A-fib with RVR #DVT -C/w home Amio -resuming apixaban 5 mg BID # Bilateral leg pain and restless -likely related to rapid fluid / electrolyte shifts with HD -iron deficiency could also contribute to the restlessness -limit opioids and gabapentinoids given initial hypercarbia and drowsiness -continue ropinirole 0.5 scheduled with 0.5 prn -s/p 1 dose of IV iron -optimize lytes #DMII -SSI -Diabetic diet # Hypothyroidism -initiated levothyroxine 25 mcg #Routine Diet: Renal diet 2 GM NA; 2 GM K; 60/60/75 CHO counting level 2 DVT Prophylaxis: DOAC Code Status: Attempt Cardiopulmonary Resuscitation - Inpatient Tremaine Landis MD 12/20/2023 Red Team - Pager [phone] Associated attestation - Bailey Meadows MD - 12/20/2023 8:35 PM EDT Attending Attestation and Certification Please see Tremaine Landis MD's note for details of the patient history of presentation and data. I have discussed, reviewed and agree with the documented History, Physical findings, Assessment and Plan of care. I have examined the patient myself and personally reviewed all studies. In addition, I certify thatI am a [facility] credentialed attending provider with admitting privileges and that the patient meets or has met medical necessity to require an inpatient IPI level of care meeting a minimum of two midnights or is on the [facility] inpatient only procedure list (status C) due to: marked volume overload, acute hypercarbic respiratory failure, refractory hyperkalemia requiring urgent initiation of hemodialysis,acute kidney injury necessitating close monitoring of fluid balance such as intravenous fluids and/or titration of medication to achieve optimal effect and minimize the chance of immediate or severe side effects Anticipate discharge tomorrow with outpatient hemodialysis and oral diuretics on non-dialysis days.Obtaining nocturnal pulse oximetry data as patient has been noted to desaturate while asleep at night. If qualifies, would discharge with home O2 for nocturnal use. Patient to follow-up with Sleep Medicine outpatient for sleep study (already scheduled). * Alice Stewart MD - 12/19/2023 4:51 PM EDT This patient was seen in conjunction with Nerissa Cuellar APRN. I performed the majority of this shared visit based on decision making. Alice Stewart MD * Nerissa Cuellar APRN - 12/19/2023 1:19 PM EDT PATIENT: Hayden Russo : 1975 NEPHROLOGY PROGRESS NOTE Hayden Russo is a 48 y.o. male with ESRD on dialysis. Consulted for hemodialysis management Interval History: - No acute events overnight. - Patient seen and evaluated in person at bedside. - Lab and metabolic parameters reviewed. - Without complaints. Assessment and Recommendations: Hayden Russo is a 48 y.o. male with ESRD on dialysis. Nephrology consulted for hemodialysis management. Feeling well today with no complaints. Denies pain, shortness of breath, N/V. No distress lying nearly flat. 1) ESRD on hemodialysis- Patient seen and evaluated at bedside. No apparent indication for urgent dialysis today. Plan next treatment tomorrow, 12/19. Current prescription: 3 hours, Na 140, K per protocol, Bicarb 35, T36, BFR 450, DFR 1.5x BFR. F160 dialyzer, UF goal 1-3L as tolerated based on BP. Access - Right chest tunneled dialysis catheter. He will require ongoing hemodialysis after discharge. Please avoid NSAIDs, contrast, nephrotoxins and dose adjust renally toxic medications as able. 2) Anemia - Hgb below goal. Will administer EPO with next dialysis. 3) Electrolytes and BMM labs acceptable. 4) Hemodynamics - BP controlled. Some edema in back of thighs. He continues to make urine, recommend continuing furosemide 120mg on non dialysis days. Can transition this to oral and continue after discharge. MEDICATIONS: furosemide 120 mg Intravenous BID lidocaine 1 patch Transdermal Q24H sacubitriL-valsartan 1 tablet Oral BID apixaban 5 mg Oral BID rOPINIRole 0.5 mg Oral Nightly levothyroxine 25 mcg Oral QAM AMIOdarone 200 mg Oral Daily atorvastatin 40 mg Oral QPM citalopram 10 mg Oral Daily clopidogreL 75 mg Oral Daily pantoprazole EC 40 mg Oral Daily sodium chloride 0.9 % (flush) 5 mL Intravenous BID insulin lispro 1-4 Units Subcutaneous TID AC insulin lispro 0-8 Units Subcutaneous TID WC senna-docusate 2 tablet Oral BID No Known Allergies PHYSICAL EXAM: Last value Temperature Temp: 36.8 ??C (98.2 ??F) Heart Rate Heart Rate: 82 Blood Pressure BP: 100/59 Respiratory Rate Resp: 14 SpO2 SpO2: 94 % STUDIES: Labs: CBC: Recent Labs 12/19/2325612/18/23 1331 12/18/23 0041 12/17/23 0237 WBC 10.66* -- 10.57* 8.54 HGB 8.3* 8.2* 8.1* 8.1* PLATELET 261 -- 211 173 Chemistry: Recent Labs 12/19/2325612/18/23 0041 12/17/23 0237 NA 137 137 140 K 4.3 4.0 3.9 CL 98 98 102 CO2 26 28 28 BUN 35* 51* 42* CREATININE 3.35* 3.00* 2.81* GLUCOSE 190 227* 164 Recent Labs 12/19/2325612/18/23 0041 12/17/23 0237 12/15/23 0216 12/14/23 0446 CALCIUM 8.7 8.6 8.8 < > 8.5 MAGNESIUM 0.86 0.83 -- -- 0.95 PHOS 4.1 4.1 -- -- 5.4* < > = values in this interval not displayed. LFT's: Recent Labs 12/10/23 1410 11/27/23 0756 11/11/23 0839 10/31/23 1148 10/30/23 0657 09/22/23 1457 BILITOT 0.3 -- 0.3 0.3 < > 0.3 BILIDIR <0.2 -- <0.2 -- -- 0.1 ALBUMIN 3.4 3.5 2.7* 2.9* < > 3.8 ALKPHOS 107 -- 142* 58 < > 97 ALT 62* -- 39 14 < > 18 AST 23 -- 47* 24 < > 19 < > = values in this interval not displayed. Nerissa Cuellar, RAMONA Section of Nephrology Pager [phone] * Kassandra Hurtado V OT - 12/19/2023 10:05 AM EDT Occupational Therapy Treatment Note Treatment Number OT: 3 Patient Dx: Hayden Russo is a 48 y.o. male admitted on 2023 with past medical history of STEMI (treated with primary PCI in 2018), CKD (baseline Cr ~2.5, previously required renal replacement therapy with CVVH), recent CABG with Dr. Dutta 11/13, DMII admitted on 2023 (Hospital Day 2 days) for HF exacerbation. Interval History: progressing well within the room. Pt desiring to return home. PT cleared for return home 12/17. Social History: Patient lives with his in an 2nd floor apt. She works during the day outside the home Home Setup: 14 RENATE with B railings. Once inside, single floor. Tub shower, with chair available. Regular bed, but also has a recliner DME: RW, cane, shower chair Baseline ADL/Mobility: Typically independent with all ADL/IADL tasks. Drives. Works. Since his CABGin Oct, has been receiving home therapy, but reports he has progressed to an independent level with ADLs and mobility w/o a RW. Has not yet returned to work. Precautions/Special Considerations: Fall; Supplemental 02 at night; R chest tunneled hemodialysis catheter S: I am ready to go home and get back to my normal life O: Patient seen for skilled OT treatment, and demonstrated the following: Self-care: Pt performed morning ADL routine, agreeable to change clothes and utilize toilet. Toilet transfer with no device used, used GB for sit-stand from toilet. SBA/Margarito for toilet. Simulated toilet hygiene with Margarito. Performed oral hygiene with Margarito, standing at sinkside with no LOB or reports of fatigue. Performed UB dressing of gown with Margarito. Functional Mobility: Pt requesting to ambulate this morning, desiring to increase endurance and ambulation tolerance. Able to amb and perform all transfers with Margarito, no device used. Able to walk 300 ft x1 with ND. No LOB, good stability and pacing. Noted to have slower pace with fatigue, but able to perform ambulation WNL and safely. Cognitive Status/Behavior: Behavior / Mood: Fatigued, but motivated to participate; Pleasant Alert and oriented to: person, place, month, year, and situation Follows commands: 100% of the time Attention: WFL Safety awareness: WF Vision & Perception: States he has glasses, but does not need hand ii thermal cutter. Tends to wear them for work. 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 Pt on 2L supplemental O2 at night, but does not needduring the day or with activity. Pt able to maintain >90% with activity. Pain: Did not rate, no reports of pain. Education: Pt education ongoing regarding: Role of occupational therapy/rehabilitation, Transfers, Assistive device/technique, ADL, Positioning, Safety, Functional Mobility, Balance, Recommendations,and Discharge planning. Staff Communication: Patient status, treatment, and mobility recommendations discussed with nursing/other staff. ASSESSMENT: Patient was seen for an OT session per POC. Pt has made significant functional progressduring hospitalization, grossly Margarito for ADL tasks and ambulatory with ND. Able to perform dressingand toileting routine with Margarito, no LOB noted, good pacing and safety strategies. Pt desiring to return home to achieve normal life again, pt has no concerns with safety at home. is able to assist when not at work, though patient will be home alone during the day. Pt is IND with ADL tasks, anticipate IND with basic IADLs to perform meal prep and ambulation within home. Cleared to return home, recommend HH OT for future OT interventions at home. Equipment needs at discharge: None Anticipated Discharge Disposition: home with home health Activity Recommendations: Promote normalcy by encouraging participation in common daily tasks & leisure activities by providing set up assist Give choices when possible to support feelings of autonomy Frequent orientation verbally & visually Keep glasses, hearing aides, cell phones, tablets, etc within reach Facilitate a normal sleep-wake cycle Provide brief, clear instruction from one source at a time Provide calming music, favorite TV programs, magazines or newspapers Utilize upright chair position using bed features or transfer to recliner chair as appropriate with1-2 assist, stand pivot with support of a RW Goals: To be achieved by 12/26/23: ALL GOALS MET Patient will don/doff UB/LB clothing independently, seated, with AE, as needed - MET Patient will complete toileting tasks (hygiene, clothing management, transfers) independently with AE, as needed - MET Patient will ambulate household distances independently with AD, as needed - MET (300 ft, ND) Patient will complete UB/LB sponge bathing tasks independently, while seated with AE, as needed - MET Patient will complete grooming task (comb hair, brush teeth, shave) independently, standing at the sink - MET, oral hygiene Patient will complete a light meal preparation task independently at an ambulatory level - MET, anticipate no concerns Therapy Frequency (OT): Monitor Total Minutes, Occupational Therapy: 24 ([phone] 1x ADL, 1x ther functional ax) Pager: [phone] Kassandra Hurtado OT 12/19/2023 Occupational Therapy Rehabilitation Department * Tremaine Landis MD - 12/19/2023 8:22 AM EDT [facility] - Red Team Inpatient Progress Note ID: Hayden Russo is a 48 y.o. year old male with past medical history of STEMI (treated withprimary PCI in 2019), CKD (baseline Cr ~2.5, previously required renal replacement therapy with CVVH), recent CABG with Dr. Dutta 11/13, DMII admitted on 2023 ( Hospital Day 9 days ) for decompensated HFpEF with marked volume overload, acute hypercarbic respiratory failure, and DONAL on CKDwith refractory hyperkalemia. Active Hospital Problems Diagnosis Metabolic encephalopathy Acute on chronic heart failure with preserved ejection fraction (HFpEF) Acute kidney injury superimposed on chronic kidney disease Hyperkalemia Acute hypercapnic respiratory failure Resolved Hospital Problems No resolved problems to display. Interval History / Subjective: -Did not tolerate CPAP overnight -HD yesterday, 2.5L off -denies any shortness of breath or worsening swelling today -Has some ongoing pain at HD catheter sight but improved from prior, leg pain is improved -Ongoing pain at catheter sight Meds: lidocaine 1 patch Transdermal Q24H sacubitriL-valsartan 1 tablet Oral BID apixaban 5 mg Oral BID rOPINIRole 0.5 mg Oral Nightly levothyroxine 25 mcg Oral QAM AMIOdarone 200 mg Oral Daily atorvastatin 40 mg Oral QPM citalopram 10 mg Oral Daily clopidogreL 75 mg Oral Daily pantoprazole EC 40 mg Oral Daily sodium chloride 0.9 % (flush) 5 mL Intravenous BID insulin lispro 1-4 Units Subcutaneous TID AC insulin lispro 0-8 Units Subcutaneous TID WC senna-docusate 2 tablet Oral BID PRN medications heparin (porcine), sodium chloride 0.9%, albuteroL, HYDROmorphone, sodium chloride 0.9%, rOPINIRole, diphenhydrAMINE, QUEtiapine, acetaminophen, sodium chloride 0.9 % (flush), lidocaine, glucose 40% oral geL OR dextrose OR glucagon, polyethylene glycoL (MIRALAX) oral powder * *AND bisacodyL AND bisacodyL EC AND lactulose AND lactulose AND magnesium citrateAND Tap water enema, ondansetron Physical Exam: Last value Range last 24 hrs Temperature Temp: 36.4 ??C (97.5 ??F) Temp: [36.4 ??C (97.5 ??F)-37.3 ??C (99.1 ??F)] Heart Rate Heart Rate: 91 Heart Rate: [80-98] Blood Pressure BP: 119/67 BP: (113-127)/(64-70) Respiratory Rate Resp: 18 Resp: [16-18] SpO2 SpO2: 100 % SpO2: [79 %-100 %] Intake/Output Summary (Last 24 hours) at 12/19/2023 0822 Last data filed at 12/19/2023 0400 Gross per 24 hour Intake 700 ml Output 2700 ml Net -2000 ml Patient Vitals for the past 168 hrs: Weight 12/19/23 06 114.4 kg (252 lb 3.3 oz) 12/18/23 0527 116.2 kg (256 lb 3.2 oz) 12/16/23 06 117.2 kg (258 lb 6.4 oz) 12/15/23 0343 121 kg (266 lb 12.1 oz) 12/14/23 06 127.1 kg (280 lb 3.3 oz) 12/13/23 0749 123.2 kg (271 lb 9.7 oz) Admit wt: 132.45 kg Physical Exam: Gen: AOx4, NAD, pleasant HEENT: anicteric, EOMI CV: RRR, no murmurs Resp: Normal work of breathing, CTAB anteriorly Abd: normal bowel sounds, soft, non-tender Ext: trace B/L lower ext edema (improving) Skin: no rashes, lesions, or ulcerations noted Neuro: CN II-XII grossly intact, moves all extremities spontaneously Labs: Recent Labs 12/19/2325612/18/23 1331 12/18/23 0041 12/17/23 0237 WBC 10.66* -- 10.57* 8.54 HGB 8.3* 8.2* 8.1* 8.1* HCT 28.6* 28.0* 27.7* 28.0* PLATELET 261 -- 211 173 Recent Labs 12/19/2325612/18/23 0041 12/17/23 0237 NA 137 137 140 K 4.3 4.0 3.9 CL 98 98 102 CO2 26 28 28 BUN 35* 51* 42* CREATININE 3.35* 3.00* 2.81* GLUCOSE 190 227* 164 Recent Labs 12/19/2325612/18/23 0041 12/17/23 0237 12/15/23 0216 12/14/23 0446 CALCIUM 8.7 8.6 8.8 < > 8.5 MAGNESIUM 0.86 0.83 -- -- 0.95 PHOS 4.1 4.1 -- -- 5.4* < > = values in this interval not displayed. No results for input(s): AST, ALT, ALKPHOS, BILITOT, BILIDIR in the last 168 hours. Other significant labs: Imaging: Results for orders placed or performed during the hospital encounter of 12/10/23 XR Chest One View (Exam End: 2023 1:38 PM) Result Value WORKSTATION ID [id number] Impression Decreased left lower lobe atelectasis. Otherwise stable exam. CT Chest wo Contrast (Generic) (Exam End: 12/13/2023 5:12 PM) Result Value WORKSTATION ID [id number] Impression 1. Unchanged small left and trace right pleural effusions. 2. Moderate left and mild right lower lobe subsegmental atelectasis. 3. Nonspecific tree-in-bud opacities in the posterior right middle lobe, possible early infectious/inflammatory pulmonary process. 4. Right jugular central venous catheter tip within the right atrium. 5. Soft tissue edema within the midline chest subcutaneous fat and posterior to the sternum, likely postsurgical change following sternotomy. 6. No subcutaneous hematoma. TTE 12/11/23: Technically limited exam due to poor acoustic windows. -Wall thickness is mildly increased. Global left ventricular systolic function is probably normal. Left ventricular ejection fraction is estimated visually at 60% with inferior wall motion abnormality. The apex and mid anterior/anterolateral wall are [...] is not well visualized on today's exam. Microbiology: Microbiology Results (Last 30 days) No results found for the last 720 hours. Assessment and Plan: Hayden Russo is a 48 y.o. year old male with past medical history of COLLINS (treated with primary PCI in 2019), CKD (baseline Cr ~2.5, previously required renal replacement therapy with CVVH), recent CABG with Dr. Dutta 11/13, DMII admitted on 2023 ( Hospital Day 9 days ) for decompensated HFpEF with marked volume overload, acute hypercarbic respiratory failure, metabolic encephalopathy, and DONAL on CKD with refractory hyperkalemia requiring urgent initiation of HD on 12/10. Now doing well following successive HD treatments and aggressive volume removal. It remains TBD whether he will need ongoing HD going forward, but his good UOP and stable Cr in interdialytic period suggest that he may not. Course complicated by bleeding from TDC site that has since resolved. Triple therapy discontinued. Plavix and apixaban to stay on, discontinued aspirin. 12/18: HD yesterday with removal of 2.5L of fluid. Cr up-trended since yesterday (3.0- >3.3). Per Nephrology, will require HD indefinitely. Diuresing on non-dialysis days, transitioning from 120mg BID to 6mg Bumex. Restless leg symptoms significantly improved from prior on ropinirole. Continues to have some pain over catheter sight that is responsive to IV tylenol and dilaudid. Will forego dilaudid overnight given desaturation last PM due to presumed SWAPNIL. Patient was started on CPAP following desaturation but he was not able to tolerate the mask. Will set up outpatient referral to sleep medicine. Pain over catheter sight significantly improved following purse string suture removal by IR. No edema, hematoma or erythema noted over the area. Patient able to walk around the floor without supplemental oxygen today. Discharge pending coordination of outpatient dialysis. # DONAL on CKD # Hyperkalemia # volume overload # acidosis (primarily respiratory) #DONAL on CKD #Cardiorenal syndrome, likely -HD started urgently 12/10 -ongoing HD per Nephrology -diuresis on non-HD days 120mg Lasix switched to 6mg Bumex -Monitor Cr and UOP in inter-dialytic period -Renally dose medications -Close monitoring of electrolytes -Renal diet, Nutrition consult for dietary education #Acute on chronic HFpEF with severe volume overload #Recent CABG #ASCVD, premature #HTN -receiving iHD since 12/10 -diuresis as above -resume apixaban -continue plavix -dc aspirin as triple therapy is no longer indicated -C/w home atorvastatin -HOLDING home losartan -TTE findings above -Daily weights -Strict I's and O's -Tele # acute hypercarbic respiratory failure # hypoxia -likely due to combination of SWAPNIL, OHS, and acute CHF -improving clinically with volume removal with HD -repeat blood gas if concern for worsening hypercarbia -wean oxygen as able # bleeding from TDC site-resolved -CTM #A-fib with RVR #DVT -C/w home Amio -resuming apixaban 5 mg BID # Bilateral leg pain and restless -likely related to rapid fluid / electrolyte shifts with HD -iron deficiency could also contribute to the restlessness -limit opioids and gabapentinoids given initial hypercarbia and drowsiness -continue ropinirole 0.5 scheduled with 0.5 prn -s/p 1 dose of IV iron -optimize lytes #DMII -SSI -Diabetic diet # Hypothyroidism -initiated levothyroxine 25 mcg #Routine Diet: Renal diet 2 GM NA; 2 GM K; 60/60/75 CHO counting level 2 DVT Prophylaxis: DOAC Code Status: Attempt Cardiopulmonary Resuscitation - Inpatient Tremaine Landis MD 12/19/2023 Red Team - Pager [phone] Associated attestation - Bailey Meadows MD - 12/19/2023 5:29 PM EDT Attending Attestation and Certification Please see Tremaine Landis MD's note for details of the patient history of presentation and data. I have discussed, reviewed and agree with the documented History, Physical findings, Assessment and Plan of care. I have examined the patient myself and personally reviewed all studies. In addition, I certify thatI am a D-H credentialed attending provider with admitting privileges and that the patient meets or has met medical necessity to require an inpatient IPI level of care meeting a minimum of two midnights or is on the CMS inpatient only procedure list (status C) due to: marked volume overload, acute hypercarbic respiratory failure, refractory hyperkalemia requiring urgent initiation of hemodialysis,acute kidney injury necessitating close monitoring of fluid balance such as intravenous fluids and/or titration of medication to achieve optimal effect and minimize the chance of immediate or severe side effects * Alice Stewart MD - 12/18/2023 2:56 PM EDT This patient was seen in conjunction with Nerissa Cuellar APRN. Darius performed the majority of this shared visit based on decision making. Alice Stewart MD * Nerissa Cuellar, RAMONA - 12/18/2023 2:14 PM EDT PATIENT: Hayden Russo : 1975 NEPHROLOGY PROGRESS NOTE Hayden Russo is a 48 y.o. male with ESRD on dialysis. Consulted for hemodialysis management Interval History: - No acute events overnight. - Patient seen and evaluated in person at bedside. - Lab and metabolic parameters reviewed. - Without complaints. PE: General: Alert, comfortable. Cooperative with exam. CV: S1 and S2. HR regular. Resp: Lungs clear anteriorly. Respirations non labored. Abd: Soft. + BS. No bruit. Non tender. Ext: Warm. No cyanosis. No edema. Skin: Warm and dry to touch. No rash. Neuro: Alert and oriented x4. Psych: Mood appropriate Assessment and Recommendations: Hayden Russo is a 48 y.o. male with ESRD on dialysis. Nephrology consulted for hemodialysis management. Denies pain, shortness of breath, N/V. No distress lying nearly flat. 1) DONAL/ESRD on hemodialysis- Patient seen and evaluated while on dialysis. Tolerating UF removal of3L with SBP around 110. No evidence of renal recovery given rise in creatinine over the weekend, without dialysis. Developed restless legs while on dialysis, preventing him from resting. One time order for ropinirole 0.5mg. Plan next treatment on Tuesday 12/19. Current prescription: 3 hours, Na 140, K per protocol, Bicarb 35, T37, BFR 450, DFR 1.5x BFR. F160 dialyzer, UF goal 1-3L as tolerated based on BP. Access - Right chest tunneled dialysis catheter. Pain has improved since suture was removed by IR. No redness or drainage. Please avoid NSAIDs, contrast, nephrotoxins and dose adjust renally toxic medications as able. 2) Anemia - Hgb below goal for ESRD. Receiving EPO 10,000u with dialysis. Please recheck iron stores. 3) Bone and mineral - Calcium, phosphorous and PTH in range. 4) Acid-base - No metabolic acidosis appreciated 5) Electrolytes - Potassium and sodium in range. 6) Hemodynamics - BP controlled. Some edema in back of thighs. Continues to make urine. Recommend continuing furosemide 120mg IV BID. MEDICATIONS: lidocaine 1 patch Transdermal Q24H sacubitriL-valsartan 1 tablet Oral BID apixaban 5 mg Oral BID rOPINIRole 0.5 mg Oral Nightly levothyroxine 25 mcg Oral QAM albuteroL 2.5 mg Nebulization 4 Times Daily AMIOdarone 200 mg Oral Daily atorvastatin 40 mg Oral QPM citalopram 10 mg Oral Daily clopidogreL 75 mg Oral Daily pantoprazole EC 40 mg Oral Daily sodium chloride 0.9 % (flush) 5 mL Intravenous BID insulin lispro 1-4 Units Subcutaneous TID AC insulin lispro 0-8 Units Subcutaneous TID WC senna-docusate 2 tablet Oral BID No Known Allergies PHYSICAL EXAM: Last value Temperature Temp: 37.1 ??C (98.8 ??F) Heart Rate Heart Rate: 85 Blood Pressure BP: 127/69 Respiratory Rate Resp: 16 SpO2 SpO2: 95 % STUDIES: Labs: CBC: Recent Labs 12/18/23 1331 12/18/23 0041 12/17/23 0237 12/16/23 0113 WBC -- 10.57* 8.54 9.30 HGB 8.2* 8.1* 8.1* 8.0* PLATELET -- 211 173 137* Chemistry: Recent Labs 12/18/23 0041 12/17/23 0237 12/16/23 0113 NA 137 140 137 K 4.0 3.9 4.0 CL 98 102 100 CO2 BUN 51* 42* 32* CREATININE 3.00* 2.81* 2.31* GLUCOSE 227* 164 158 Recent Labs 12/18/23 0041 12/17/23 0237 12/16/23 0113 12/15/23 0216 12/14/23 0446 12/13/23 0306 12/12/23 1607 CALCIUM 8.6 8.8 8.6 < > 8.5 < > -- MAGNESIUM 0.83 -- -- -- 0.95 -- 0.79 PHOS 4.1 -- -- -- 5.4* -- 4.4 < > = values in this interval not displayed. LFT's: Recent Labs 12/10/23 1410 11/27/23 0756 11/11/23 0839 10/31/23 1148 10/30/23 0657 09/22/23 1457 BILITOT 0.3 -- 0.3 0.3 < > 0.3 BILIDIR <0.2 -- <0.2 -- -- 0.1 ALBUMIN 3.4 3.5 2.7* 2.9* < > 3.8 ALKPHOS 107 -- 142* 58 < > 97 ALT 62* -- 39 14 < > 18 AST 23 -- 47* 24 < > 19 < > = values in this interval not displayed. Nerissa Cuellar APRN Section of Nephrology Pager [phone] * Anne Marie Win, PT - 12/18/2023 10:49 AM EDT Physical Therapy Note Visit #4 Patient profile: Hayden Russo is a 48 y.o. male admitted on [address] Loi Encinas MD transferred from [facility] with worsening anasarca associated with SOB. At OSH chest x-ray showed cardiomegaly with left pleural effusion. At [facility] he got 80 mg of IV Lasix and on EKG there were no changes from baseline. Recently underwent CABG(10/30/23 [place]> LAD, SVG> OM2, SVG> PDA)) which was complicated by DONAL requiring CVVH. Since discharge he has followed with Nephrology. #Hyperkalemia in the setting of renal failure He had worsening volume overload despite home torsemide 40mg. 12/10-IR for placement of tunneled hemodialysis catheter to initiate intermittent dialysis. 12/10 iHD initiated, 3L taken off & another iHD run today 12/11. 12/12 Dialysis cancelled today due to dressing change/bleeding from HD site. Sand bag applied, statseal, & IR MD had to suture around cath site for oozing to stop. 12/13 Went to HD this morning. Kidney function improving but uremic platelet dysfunction. Interval History: No dialysis over weeeken, todd catheter discontinued. Diuresed w/ lasix with good urine Per Nephrology-. At this point I would consider him ESRD and anticipate 3x weekly dialysis. Social History: Lives with in [place], [place] in a 2nd floor apartment. 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 Home set-up: Inside apartment one level. Bathroom Set-up: tub shower but has shower chair available. Stairs: flight to get to apart Baseline Mobility: Typically independent driving & working up until Oct when he had CABG (10/30/23) & has had home PT and walking 20 min's outdoors, climbing stairs and was hoping to return towork soon until this admission. Equipment at home: Has walker, cane, tub shower with seat, has recliner. Fall history: denies Precautions/Special Considerations: Up with assistance; Fall risk/weak, Todd catheter, R chest tunneled hemodialysis catheter. Renal diet 2 gm Na, 2 Gm of K, carb counting 60/60/75 Mobility and Positioning Recommendations: Pt. should utilize walker and CGA x 2 staff assist for stand-step transfers bed >< chair & ambulation. Encourage to sit upright in bed (bed-chair) or get into chair daily. Please encourage up to chair for meal times as able Encourage progressive distance walking with chair follow; began walking using FWW and CGA x 2 on Monday, continue over weekend as able Subjective: I did walk a lot this weekend. I feel almost normal, thanks so much for letting me walk without walker and trying the stairs today. I'm looking forward to returning home & agree to resume my home PT to be sure to progress to be able to return to work. Objective: Patient walking in [place] with EMERGENCY ROOM CLINICIAN, amb with FWW. He demonstrated the following: Pain: no c/o's Vital Signs: HR=92 & 107 standing after climbing stairs (flight). SpO2=95% RA Patient walking in halls with FWW and stand-by of EMERGENCY ROOM CLINICIAN. He was agreeable to therapy to test balance without walker & climbing stairs. Amb additional 50' w/ FWW (I). Tested without walker and amb 150' without, steady, slow jossy butno LOB; stand-by supervision. Amb up & down FOS holding railings and alternating steps going up, stood @ landing @ top for rest and descended 2 hands on 1 railing side stepping [id number] as he did prior and demonstrating independence, stand-by supervision and had a chair in case he needed to rest after stairs but he felt good. Amb back to his room, new room just arrived overnight so set up recliner chair so he could sit up as he'll go for dialysis mid day for afternoon. Mobility tech and pt agreeable to walk prior to dialysis and continue walking with staff supervision, going without walker several walks per day until DC. Goals met cleared PT for DC home once medically ready. Education: Pt reminded to call for staff before moving; staff available in case & he acknowledged. He's agreeable to continue walking halls several times daily around medical interventions. Assessment: Hayden Tremaine Karan was seen to assess gait without walker, balance, and gait on stairs. Hospital day #8 with with heart failure, Hyperkalemia in the setting of renal failure and requiringdialysis and lasix to manage fluid volume. He's demonstrating ability to mobilize close to his baseline again and feeling confident to walk without walker and climb stairs. Functionally returning to baseline and hoping to DC home soon once medically ready. He is agreeable to keep walking with staff until DC; mobility tech will stop in and offer walks several times daily. Inpatient Physical Therapy Plan: Monitor (PT goals met; amb with mob tech until DC) Discharge Recommendations: Based on current findings- home with home health. Consult Recommendations: resume home services Equipment needs: None (he has a rolling walker @ home) Physical Therapy Goals: To be achieved by 12-22-23: MET Pt. to demonstrate knowledge of safety precautions by appropriately requesting assistance to mobilize. MET Pt demonstrate understanding of appropriate exercises to help strengthen( in bed & chair).MET Pt. to perform bed mobility independently. MET Pt. to perform sit><stand transfers independently using a front wheeled walker. MET Patient step transfer bed >< chair with walker and supervision x 1. MET Pt. to ambulate at least 100 feet with modified independence and with supervision using a a front wheeled walker.- MET Pt. to ambulate up/down flight of stairs using one rail with modified independence and with supervision to enter/exit apartment. MET Pt will tolerate activity progression with stable pain level & vital signs. MET Time IN / OUT: 10:15-10:45 Total Time: 30 (TE-F x 2) minutes ANNE MARIE WIN, PT Pager: [phone] Physical Therapy Inpatient Rehabilitation Department * Tremaine Landis MD - 12/18/2023 8:09 AM EDT [facility] Medicine - Red Team Inpatient Progress Note ID: Hayden Russo is a 48 y.o. year old male with past medical history of STEMI (treated withprimary PCI in 2019), CKD (baseline Cr ~2.5, previously required renal replacement therapy with CVVH), recent CABG with Dr. Dutta 11/13, DMII admitted on 2023 ( Hospital Day 8 days ) for decompensated HFpEF with marked volume overload, acute hypercarbic respiratory failure, and DONAL on CKDwith refractory hyperkalemia. Active Hospital Problems Diagnosis Metabolic encephalopathy Acute on chronic heart failure with preserved ejection fraction (HFpEF) Acute kidney injury superimposed on chronic kidney disease Hyperkalemia Acute hypercapnic respiratory failure Resolved Hospital Problems No resolved problems to display. Interval History / Subjective: -Feeling in better spirits this morning, able to sleep last night. Walked around the unit several times yesterday -No HD yesterday but got Diuresed with 120mg BID -denies any shortness of breath or worsening swelling today -Has some ongoing pain at HD catheter sight but improved from prior, leg pain is improved -purse string suture removed by IR, no further bleeding at cath site Meds: lidocaine 1 patch Transdermal Q24H sacubitriL-valsartan 1 tablet Oral BID apixaban 5 mg Oral BID rOPINIRole 0.5 mg Oral Nightly levothyroxine 25 mcg Oral QAM albuteroL 2.5 mg Nebulization 4 Times Daily AMIOdarone 200 mg Oral Daily atorvastatin 40 mg Oral QPM citalopram 10 mg Oral Daily clopidogreL 75 mg Oral Daily pantoprazole EC 40 mg Oral Daily sodium chloride 0.9 % (flush) 5 mL Intravenous BID insulin lispro 1-4 Units Subcutaneous TID AC insulin lispro 0-8 Units Subcutaneous TID WC senna-docusate 2 tablet Oral BID PRN medications HYDROmorphone, sodium chloride 0.9%, rOPINIRole, diphenhydrAMINE, QUEtiapine, acetaminophen, sodium chloride 0.9 % (flush), lidocaine, glucose 40% oral geL OR dextrose OR glucagon, polyethylene glycoL (MIRALAX) oral powder AND bisacodyL AND bisacodyL EC AND lactulose AND lactulose AND magnesium citrate AND Tap water enema, ondansetron Physical Exam: Last value Range last 24 hrs Temperature Temp: 36.8 ??C (98.2 ??F) Temp: [36.7 ??C (98 ??F)-36.9 ??C (98.5 ??F)] Heart Rate Heart Rate: (!) 107 Heart Rate: [85-107] Blood Pressure BP: 150/76 BP: (115-152)/(69-79) Respiratory Rate Resp: 16 Resp: [15-34] SpO2 SpO2: 97 % SpO2: [91 %-99 %] Intake/Output Summary (Last 24 hours) at 12/18/2023 0809 Last data filed at 12/18/2023 0520 Gross per 24 hour Intake 910 ml Output 2400 ml Net -1490 ml Patient Vitals for the past 168 hrs: Weight 12/18/23 0527 116.2 kg (256 lb 3.2 oz) 12/16/23 0600 117.2 kg (258 lb 6.4 oz) 12/15/23 0343 121 kg (266 lb 12.1 oz) 12/14/23 0600 127.1 kg (280 lb 3.3 oz) 12/13/23 0749 123.2 kg (271 lb 9.7 oz) 12/12/23 0549 132.2 kg (291 lb 7.2 oz) Admit wt: 132.45 kg Physical Exam: Gen: AOx4, NAD, pleasant HEENT: anicteric, EOMI CV: RRR, no murmurs Resp: Normal work of breathing, CTAB anteriorly Abd: normal bowel sounds, soft, non-tender Ext: trace B/L lower ext edema (improving) Skin: no rashes, lesions, or ulcerations noted Neuro: CN II-XII grossly intact, moves all extremities spontaneously Labs: Recent Labs 12/18/23 0041 12/17/237 12/16/23 0113 WBC 10.57* 8.54 9.30 HGB 8.1* 8.1* 8.0* HCT 27.7* 28.0* 27.8* PLATELET 211 173 137* Recent Labs 12/18/23 0041 12/17/237 12/16/23 0113 NA 137 140 137 K 4.0 3.9 4.0 CL 98 102 100 CO2 BUN 51* 42* 32* CREATININE 3.00* 2.81* 2.31* GLUCOSE 227* 164 158 Recent Labs 12/18/23 0041 12/17/237 12/16/23 0113 12/15/23 0216 12/14/23 0446 12/13/23 0306 12/12/23 1607 CALCIUM 8.6 8.8 8.6 < > 8.5 < > -- MAGNESIUM 0.83 -- -- -- 0.95 -- 0.79 PHOS 4.1 -- -- -- 5.4* -- 4.4 < > = values in this interval not displayed. No results for input(s): AST, ALT, ALKPHOS, BILITOT, BILIDIR in the last 168 hours. Other significant labs: Imaging: Results for orders placed or performed during the hospital encounter of 12/10/23 XR Chest One View (Exam End: 2023 1:38 PM) Result Value WORKSTATION ID [id number] Impression Decreased left lower lobe atelectasis. Otherwise stable exam. CT Chest wo Contrast (Generic) (Exam End: 12/13/2023 5:12 PM) Result Value WORKSTATION ID [id number] Impression 1. Unchanged small left and trace right pleural effusions. 2. Moderate left and mild right lower lobe subsegmental atelectasis. 3. Nonspecific tree-in-bud opacities in the posterior right middle lobe, possible early infectious/inflammatory pulmonary process. 4. Right jugular central venous catheter tip within the right atrium. 5. Soft tissue edema within the midline chest subcutaneous fat and posterior to the sternum, likely postsurgical change following sternotomy. 6. No subcutaneous hematoma. TTE 12/11/23: Technically limited exam due to poor acoustic windows. -Wall thickness is mildly increased. Global left ventricular systolic function is probably normal. Left ventricular ejection fraction is estimated visually at 60% with inferior wall motion abnormality. The apex and mid anterior/anterolateral wall are [...] is not well visualized on today's exam. Microbiology: Microbiology Results (Last 30 days) No results found for the last 720 hours. Assessment and Plan: Hayden Russo is a 48 y.o. year old male with past medical history of COLLINS (treated with primary PCI in 2019), CKD (baseline Cr ~2.5, previously required renal replacement therapy with CVVH), recent CABG with Dr. Dutta 11/13, DMII admitted on 2023 ( Hospital Day 8 days ) for decompensated HFpEF with marked volume overload, acute hypercarbic respiratory failure, metabolic encephalopathy, and DONAL on CKD with refractory hyperkalemia requiring urgent initiation of HD on 12/10. Now doing well following successive HD treatments and aggressive volume removal. It remains TBD whether he will need ongoing HD going forward, but his good UOP and stable Cr in interdialytic period suggest that he may not. Course complicated by bleeding from TDC site that has since resolved. Triple therapy discontinued. Plavix and apixaban to stay on, discontinued aspirin. 12/15: HD today with plan to remove 3L of fluid. Diuresing with IV lasix 120mg BID on non-dialysis days. Per nephrology, patient to require outpatient dialysis. Cr and BUN vivien during inter-dialytic period.Continues to have Restless leg symptoms, responsive to 0.5mg Ropinirole. No further episodes of bleeding since resuming apixaban from catheter sight. Pain over catheter sight significantly improved following purse string suture removal by IR. No edema, hematoma or erythema noted over the area. Weanoxygen as able. # DONAL on CKD # Hyperkalemia # volume overload # acidosis (primarily respiratory) #DONAL on CKD #Cardiorenal syndrome, likely -HD started urgently 12/10 -ongoing HD per Nephrology -diuresis on non-HD days (120mg BID) -Monitor Cr and UOP in inter-dialytic period -Renally dose medications -Close monitoring of electrolytes -Renal diet, Nutrition consult for dietary education #Acute on chronic HFpEF with severe volume overload #Recent CABG #ASCVD, premature #HTN -receiving iHD since 12/10 -diuresis as above -resume apixaban -continue plavix -dc aspirin as triple therapy is no longer indicated -C/w home atorvastatin -HOLDING home losartan -TTE findings above -Daily weights -Strict I's and O's -Tele # acute hypercarbic respiratory failure # hypoxia -likely due to combination of SWAPNIL, OHS, and acute CHF -improving clinically with volume removal with HD -repeat blood gas if concern for worsening hypercarbia -wean oxygen as able # bleeding from TDC site-resolved -CTM #A-fib with RVR #DVT -C/w home Amio -resuming apixaban 5 mg BID # Bilateral leg pain and restless -likely related to rapid fluid / electrolyte shifts with HD -iron deficiency could also contribute to the restlessness -limit opioids and gabapentinoids given initial hypercarbia and drowsiness -continue ropinirole 0.5 scheduled with 0.5 prn -s/p 1 dose of IV iron -optimize lytes #DMII -SSI -Diabetic diet # Hypothyroidism -initiated levothyroxine 25 mcg #Routine Diet: Renal diet 2 GM NA; 2 GM K; 60/60/75 CHO counting level 2 DVT Prophylaxis: DOAC Code Status: Attempt Cardiopulmonary Resuscitation - Inpatient Tremaine Landis MD 12/18/2023 Red Team - Pager [phone] Associated attestation - Bailey Meadows MD - 12/18/2023 5:01 PM EDT Attending Attestation and Certification Please see Tremaine Landis MD's note for details of the patient history of presentation and data. I have discussed, reviewed and agree with the documented History, Physical findings, Assessment and Plan of care. I have examined the patient myself and personally reviewed all studies. In addition, I certify thatI am a D-H credentialed attending provider with admitting privileges and that the patient meets or has met medical necessity to require an inpatient IPI level of care meeting a minimum of two midnights or is on the [facility] inpatient only procedure list (status C) due to: marked volume overload, acute hypercarbic respiratory failure, refractory hyperkalemia requiring urgent initiation of hemodialysis,acute kidney injury necessitating close monitoring of fluid balance such as intravenous fluids and/or titration of medication to achieve optimal effect and minimize the chance of immediate or severe side effects Entresto started yesterday. HD session today with intermittent worsening of restless leg symptoms and received ropinirole. Anticipate ongoing HD needs outpatient. Patient says he would be amenable togoing to [facility]. PT/OT recommending home with home health when medically ready. * Delia Preston RN - 12/18/2023 7:25 AM EDT Assumed care for the pt at around 0300.pt alert.oriented x4. Endorses 09/29 around the R HD cathetersite, IV tylenol given with good effect. Walked around the unit.safety maintained. * Vu Newman DO - 12/17/2023 4:45 PM EDT Purse string suture removed at bedside without evidence of bleeding and new sterile dressing applied. IR will sign off, call for any questions or concerns. Vu Newman DO [facility] [place] Interventional Radiology [phone] * Andriy Copeland MD - 12/17/2023 10:40 AM EDT Hypertension/Nephrology Inpatient Follow-up Hayden Russo [id number] 1975 ID: 48 y.o. old male seen for DONAL. Interval History: Restless overnight. Breathing is stable this AM. CV reg, Resp clear anteriorly, 1+ edema. 0.7L negative yesterday. Significant interdialytic Cr rise and modest urine output despite fairly high dose diuretics. HD tomorrow; would refer for chronic outpatient dialysis as I expect his volume status andmetabolics will ultimately require dialysis to maintain. At this point I would consider him ESRD and anticipate 3x weekly dialysis. Would start Entresto for GDMT for CHF. * Tremaine Landis MD - 12/17/2023 8:03 AM EDT [facility] - Red Team Inpatient Progress Note ID: Hayden Russo is a 48 y.o. year old male with past medical history of STEMI (treated withprimary PCI in 2019), CKD (baseline Cr ~2.5, previously required renal replacement therapy with CVVH), recent CABG with Dr. Dutta 11/13, DMII admitted on 2023 ( Hospital Day 7 days ) for decompensated HFpEF with marked volume overload, acute hypercarbic respiratory failure, and DONAL on CKDwith refractory hyperkalemia. Active Hospital Problems Diagnosis Metabolic encephalopathy Acute on chronic heart failure with preserved ejection fraction (HFpEF) Acute kidney injury superimposed on chronic kidney disease Hyperkalemia Acute hypercapnic respiratory failure Resolved Hospital Problems No resolved problems to display. Interval History / Subjective: -Diuresed with 120mg and 60mg lasix yesterday with good urine output (0.6cc/kg/hr) -denies any shortness of breath or worsening swelling today -Has some ongoing pain at HD catheter sight, leg pain is improved -no further bleeding at cath site Meds: lidocaine 1 patch Transdermal Q24H apixaban 5 mg Oral BID rOPINIRole 0.5 mg Oral Nightly levothyroxine 25 mcg Oral QAM albuteroL 2.5 mg Nebulization 4 Times Daily AMIOdarone 200 mg Oral Daily atorvastatin 40 mg Oral QPM citalopram 10 mg Oral Daily clopidogreL 75 mg Oral Daily pantoprazole EC 40 mg Oral Daily sodium chloride 0.9 % (flush) 5 mL Intravenous BID insulin lispro 1-4 Units Subcutaneous TID AC insulin lispro 0-8 Units Subcutaneous TID WC senna-docusate 2 tablet Oral BID PRN medications HYDROmorphone, sodium chloride 0.9%, rOPINIRole, diphenhydrAMINE, QUEtiapine, acetaminophen, sodium chloride 0.9 % (flush), lidocaine, glucose 40% oral geL OR dextrose OR glucagon, polyethylene glycoL (MIRALAX) oral powder AND bisacodyL AND bisacodyL EC AND lactulose AND lactulose AND magnesium citrate AND Tap water enema, ondansetron Physical Exam: Last value Range last 24 hrs Temperature Temp: 36.7 ??C (98 ??F) Temp: [36.4 ??C (97.6 ??F)-36.7 ??C (98 ??F)] Heart Rate Heart Rate: 95 Heart Rate: [77-95] Blood Pressure BP: 146/71 BP: (139-166)/(67-85) Respiratory Rate Resp: 16 Resp: [12-22] SpO2 SpO2: (!) 79 % SpO2: [79 %-100 %] Intake/Output Summary (Last 24 hours) at 12/17/2023 0806 Last data filed at 12/17/2023 0600 Gross per 24 hour Intake 940 ml Output 1750 ml Net -810 ml Patient Vitals for the past 168 hrs: Weight 12/16/23 0600 117.2 kg (258 lb 6.4 oz) 12/15/23 0343 121 kg (266 lb 12.1 oz) 12/14/23 0600 127.1 kg (280 lb 3.3 oz) 12/13/23 0749 123.2 kg (271 lb 9.7 oz) 12/12/23 0549 132.2 kg (291 lb 7.2 oz) 12/10/23 1000 132.5 kg (292 lb) Admit wt: 132.45 kg Physical Exam: Gen: AOx4, NAD, pleasant HEENT: anicteric, EOMI CV: RRR, no murmurs Resp: Normal work of breathing, CTAB anteriorly Abd: normal bowel sounds, soft, non-tender Ext: trace B/L lower ext edema (improving) Skin: no rashes, lesions, or ulcerations noted Neuro: CN II-XII grossly intact, moves all extremities spontaneously Labs: Recent Labs 12/17/23 0237 12/16/23 0113 12/15/236 WBC 8.54 9.30 7.76 HGB 8.1* 8.0* 8.0* HCT 28.0* 27.8* 27.6* PLATELET 173 137* 158 Recent Labs 12/17/23 0237 12/16/23 0113 12/15/236 NA 140 137 141 K 3.9 4.0 4.2 CL 102 100 105 CO2 28 28 27 BUN 42* 32* 37* CREATININE 2.81* 2.31* 2.62* GLUCOSE 164 158 130 Recent Labs 12/17/23 0237 12/16/23 0113 12/15/23 0216 12/14/23 0446 12/13/23 0306 12/12/23 1607 12/10/23 2339 12/10/232020 CALCIUM 8.8 8.6 8.5 8.5 < > -- < > 8.8 MAGNESIUM -- -- -- 0.95 -- 0.79 -- 0.96 PHOS -- -- -- 5.4* -- 4.4 -- 6.7* < > = values in this interval not displayed. Recent Labs 12/10/23 1410 AST 23 ALT 62* ALKPHOS 107 BILITOT 0.3 BILIDIR <0.2 Other significant labs: Imaging: Results for orders placed or performed during the hospital encounter of 12/10/23 XR Chest One View (Exam End: 2023 1:38 PM) Result Value WORKSTATION ID [id number] Impression Decreased left lower lobe atelectasis. Otherwise stable exam. CT Chest wo Contrast (Generic) (Exam End: 12/13/2023 5:12 PM) Result Value WORKSTATION ID [id number] Impression 1. Unchanged small left and trace right pleural effusions. 2. Moderate left and mild right lower lobe subsegmental atelectasis. 3. Nonspecific tree-in-bud opacities in the posterior right middle lobe, possible early infectious/inflammatory pulmonary process. 4. Right jugular central venous catheter tip within the right atrium. 5. Soft tissue edema within the midline chest subcutaneous fat and posterior to the sternum, likely postsurgical change following sternotomy. 6. No subcutaneous hematoma. TTE 12/11/23: Technically limited exam due to poor acoustic windows. -Wall thickness is mildly increased. Global left ventricular systolic function is probably normal. Left ventricular ejection fraction is estimated visually at 60% with inferior wall motion abnormality. The apex and mid anterior/anterolateral wall are [...] is not well visualized on today's exam. Microbiology: Microbiology Results (Last 30 days) No results found for the last 720 hours. Assessment and Plan: Hayden Russo is a 48 y.o. year old male with past medical history of COLLINS (treated with primary PCI in 2019), CKD (baseline Cr ~2.5, previously required renal replacement therapy with CVVH), recent CABG with Dr. Dutta 11/13, DMII admitted on 2023 ( Hospital Day 7 days ) for decompensated HFpEF with marked volume overload, acute hypercarbic respiratory failure, metabolic encephalopathy, and DONAL on CKD with refractory hyperkalemia requiring urgent initiation of HD on 12/10. Now doing well following successive HD treatments and aggressive volume removal. It remains TBD whether he will need ongoing HD going forward, but his good UOP and stable Cr in interdialytic period suggest that he may not. Course complicated by bleeding from TDC site that has since resolved. Triple therapy discontinued. Plavix and apixaban to stay on, discontinued aspirin. 12/15: No HD today. Diuresing with IV lasix 120mg BID, good urine output over the last 24 hrs and weight continues to trend downward. Restless leg symptoms significantly improved on 0.5mg Ropinirole. No further episodes of bleeding since resuming apixaban from catheter sight. Some pain remains at this area, but no edema, hematoma or erythema noted over the area. # DONAL on CKD # Hyperkalemia # volume overload # acidosis (primarily respiratory) #DONAL on CKD #Cardiorenal syndrome, likely -HD started urgently 12/10 -ongoing HD per Nephrology -diuresis on non-HD days (120mg BID) -Monitor Cr and UOP in inter-dialytic period -Renally dose medications -Close monitoring of electrolytes -Renal diet, Nutrition consult for dietary education #Acute on chronic HFpEF with severe volume overload #Recent CABG #ASCVD, premature #HTN -receiving iHD since 12/10 -diuresis as above -resume apixaban -continue plavix -dc aspirin as triple therapy is no longer indicated -C/w home atorvastatin -HOLDING home losartan -TTE findings above -Daily weights -Strict I's and O's -Tele # acute hypercarbic respiratory failure # hypoxia -likely due to combination of SWAPNIL, OHS, and acute CHF -improving clinically with volume removal with HD -repeat blood gas if concern for worsening hypercarbia -wean oxygen as able # bleeding from TDC site-resolved -CTM #A-fib with RVR #DVT -C/w home Amio -resuming apixaban 5 mg BID # Bilateral leg pain and restless -likely related to rapid fluid / electrolyte shifts with HD -iron deficiency could also contribute to the restlessness -limit opioids and gabapentinoids given initial hypercarbia and drowsiness -continue ropinirole 0.5 scheduled with 0.5 prn -s/p 1 dose of IV iron -optimize lytes #DMII -SSI -Diabetic diet # Hypothyroidism -initiated levothyroxine 25 mcg #Routine Diet: Renal diet 2 GM NA; 2 GM K; 60/60/75 CHO counting level 2 DVT Prophylaxis: DOAC Code Status: Attempt Cardiopulmonary Resuscitation - Inpatient Tremaine Landis MD 12/17/2023 Red Team - Pager [phone] Associated attestation - Bailey Meadows MD - 12/17/2023 5:22 PM EDT Attending Attestation and Certification Please see Tremaine Landis MD's note for details of the patient history of presentation and data. I have discussed, reviewed and agree with the documented History, Physical findings, Assessment and Plan of care. I have examined the patient myself and personally reviewed all studies. In addition, I certify thatI am a D-H credentialed attending provider with admitting privileges and that the patient meets or has met medical necessity to require an inpatient IPI level of care meeting a minimum of two midnights or is on the [facility] inpatient only procedure list (status C) due to: marked volume overload, acute hypercarbic respiratory failure, refractory hyperkalemia requiring urgent initiation of hemodialysis,acute kidney injury necessitating close monitoring of fluid balance such as intravenous fluids and/or titration of medication to achieve optimal effect and minimize the chance of immediate or severe side effects Dialysis holiday over the weekend. Received IV furosemide 60 mg and then 120 mg yesterday. In response, Cr increased from 2.31 to 2.81 today. UOP documented at 1750 mL yesterday but also documented to have several unmeasured voids. Continuing with IV furosemide 120 mg BID today. Anticipate HD tomorrow. If patient were to have ongoing dialysis needs outpatient, he says he would be amenable to going to either [facility] or [facility]. He reports that lower extremity discomfort has improved markedly today. Did have R shoulder discomfort at the tunneled line site for which CXR was done showing mild pinching of the proximal catheter likely from the suture placed a few days prior, and appreciate IR assistance with evaluating suture site for improved patient comfort. * Andriy Copeland MD - 12/16/2023 1:10 PM EDT Hypertension/Nephrology Inpatient Follow-up Hayden Russo [id number] 1975 ID: 48 y.o. old male seen for DONAL. Interval History: Tolerated dialysis well yesterday. Breathing is stable this AM. CV reg, Resp clear anteriorly, 1+ edema. 3L negative yesterday. Cr improved this AM, albeit after dialysis. DONAL on CKD; likely cardiorenal disease superimposed on diabetic nephropathy and ATN. Would give furosemide 120mg IV BID and monitor through weekend. No indication for renal replacement therapy today. * Sylvia Rothman MD - 12/16/2023 7:35 AM EDT [facility] Medicine - Red Team Inpatient Progress Note ID: Hayden Russo is a 48 y.o. year old male with past medical history of STEMI (treated withprimary PCI in 2019), CKD (baseline Cr ~2.5, previously required renal replacement therapy with CVVH), recent CABG with Dr. Dutta 11/13, DMII admitted on 2023 ( Hospital Day 6 days ) for decompensated HFpEF with marked volume overload, acute hypercarbic respiratory failure, and DONAL on CKDwith refractory hyperkalemia. Active Hospital Problems Diagnosis Metabolic encephalopathy Acute on chronic heart failure with preserved ejection fraction (HFpEF) Acute kidney injury superimposed on chronic kidney disease Hyperkalemia Acute hypercapnic respiratory failure Resolved Hospital Problems No resolved problems to display. Interval History / Subjective: -HD yesterday with 3 L removed -denies any shortness of breath or worsening swelling today -endorsing LE pain; neuropathic with restless leg symptoms -ropinirole increased to 0.5 mg -received po dilaudid -no further bleeding at cath site Meds: rOPINIRole 0.5 mg Oral Nightly levothyroxine 25 mcg Oral QAM albuteroL 2.5 mg Nebulization 4 Times Daily AMIOdarone 200 mg Oral Daily aspirin 81 mg Oral Daily atorvastatin 40 mg Oral QPM citalopram 10 mg Oral Daily clopidogreL 75 mg Oral Daily pantoprazole EC 40 mg Oral Daily sodium chloride 0.9 % (flush) 5 mL Intravenous BID insulin lispro 1-4 Units Subcutaneous TID AC insulin lispro 0-8 Units Subcutaneous TID WC senna-docusate 2 tablet Oral BID PRN medications sodium chloride 0.9%, rOPINIRole, diphenhydrAMINE, QUEtiapine, acetaminophen, sodium chloride 0.9 % (flush), lidocaine, glucose 40% oral geL OR dextrose OR glucagon, polyethylene glycoL (MIRALAX) oral powder AND bisacodyL AND bisacodyL EC AND lactulose AND lactulose AND magnesium citrate AND Tap water enema, ondansetron Physical Exam: Last value Range last 24 hrs Temperature Temp: 36.8 ??C (98.2 ??F) Temp: [36 ??C (96.8 ??F)-36.8 ??C (98.2 ??F)] Heart Rate Heart Rate: 86 Heart Rate: [72-93] Blood Pressure BP: 127/62 BP: (127-156)/(62-83) Respiratory Rate Resp: 22 Resp: [14-22] SpO2 SpO2: 93 % SpO2: [91 %-100 %] Intake/Output Summary (Last 24 hours) at 12/16/2023 0735 Last data filed at 12/16/2023 0600 Gross per 24 hour Intake 643 ml Output 3930 ml Net -3287 ml Patient Vitals for the past 168 hrs: Weight 12/16/23 06 117.2 kg (258 lb 6.4 oz) 12/15/23 0343 121 kg (266 lb 12.1 oz) 12/14/23 0600 127.1 kg (280 lb 3.3 oz) 12/13/23 0749 123.2 kg (271 lb 9.7 oz) 12/12/23 0549 132.2 kg (291 lb 7.2 oz) 12/10/23 1000 132.5 kg (292 lb) Admit wt: 132.45 kg Physical Exam: Gen: AOx4, NAD, pleasant HEENT: anicteric, EOMI CV: RRR, no murmurs Resp: Normal work of breathing, CTAB anteriorly Abd: normal bowel sounds, soft, non-tender Ext: trace B/L lower ext edema (improving) Skin: no rashes, lesions, or ulcerations noted Neuro: CN II-XII grossly intact, moves all extremities spontaneously Labs: Recent Labs 12/16/2311212/15/2321512/14/23445 WBC 9.30 7.76 6.19 HGB 8.0* 8.0* 8.0* HCT 27.8* 27.6* 28.2* PLATELET 137* 158 172 Recent Labs 12/16/23 01112/15/23 0216 12/14/23 0446 NA 137 141 141 K 4.0 4.2 4.1 CL 100 105 105 CO2 28 27 28 BUN 32* 37* 45* CREATININE 2.31* 2.62* 2.91* GLUCOSE 158 130 90 Recent Labs 12/16/2311212/15/2321512/14/23 0446 12/13/23 0306 12/12/23 1607 12/10/23 2339 12/10/232020 CALCIUM 8.6 8.5 8.5 < > -- < > 8.8 MAGNESIUM -- -- 0.95 -- 0.79 -- 0.96 PHOS -- -- 5.4* -- 4.4 -- 6.7* < > = values in this interval not displayed. Recent Labs 12/10/23 1410 AST 23 ALT 62* ALKPHOS 107 BILITOT 0.3 BILIDIR <0.2 Other significant labs: Imaging: Results for orders placed or performed during the hospital encounter of 12/10/23 XR Chest One View (Exam End: 2023 1:38 PM) Result Value WORKSTATION ID [id number] Impression Decreased left lower lobe atelectasis. Otherwise stable exam. CT Chest wo Contrast (Generic) (Exam End: 12/13/2023 5:12 PM) Result Value WORKSTATION ID [id number] Impression 1. Unchanged small left and trace right pleural effusions. 2. Moderate left and mild right lower lobe subsegmental atelectasis. 3. Nonspecific tree-in-bud opacities in the posterior right middle lobe, possible early infectious/inflammatory pulmonary process. 4. Right jugular central venous catheter tip within the right atrium. 5. Soft tissue edema within the midline chest subcutaneous fat and posterior to the sternum, likely postsurgical change following sternotomy. 6. No subcutaneous hematoma. TTE 12/11/23: Technically limited exam due to poor acoustic windows. -Wall thickness is mildly increased. Global left ventricular systolic function is probably normal. Left ventricular ejection fraction is estimated visually at 60% with inferior wall motion abnormality. The apex and mid anterior/anterolateral wall are [...] is not well visualized on today's exam. Microbiology: Microbiology Results (Last 30 days) No results found for the last 720 hours. Assessment and Plan: Hayden Russo is a 48 y.o. year old male with past medical history of COLLINS (treated with primary PCI in 2019), CKD (baseline Cr ~2.5, previously required renal replacement therapy with CVVH), recent CABG with Dr. Dutta 11/13, DMII admitted on 2023 ( Hospital Day 6 days ) for decompensated HFpEF with marked volume overload, acute hypercarbic respiratory failure, metabolic encephalopathy, and DONAL on CKD with refractory hyperkalemia requiring urgent initiation of HD on 12/10. Now doing well following successive HD treatments and aggressive volume removal. It remains TBD whether he will need ongoing HD going forward, but his good UOP and stable Cr in interdialytic period suggest that he may not. Course complicated by bleeding from TDC site that has since resolved. 12/15: No HD today. Diuresing with IV lasix 60. Ropinirole increased yesterday for increased restless leg symptoms. Given no further bleeding, will resume home apixaban. Will continue plavix and discontinueaspirin as he no longer needs triple therapy at this time. # DONAL on CKD\ # Hyperkalemia # volume overload # acidosis (primarily respiratory) #DONAL on CKD #Cardiorenal syndrome, likely -HD started urgently 12/10 -ongoing HD per Nephrology -diuresis on non-HD days -Monitor Cr and UOP in inter-dialytic period -Renally dose medications -Close monitoring of electrolytes -Renal diet, Nutrition consult for dietary education #Acute on chronic HFpEF with severe volume overload #Recent CABG #ASCVD, premature #HTN -receiving iHD since 12/10 -diuresis as above -resume apixaban -continue plavix -dc aspirin as triple therapy is no longer indicated -C/w home atorvastatin -HOLDING home losartan -TTE findings above -Daily weights -Strict I's and O's -Tele # acute hypercarbic respiratory failure # hypoxia -likely due to combination of SWAPNIL, OHS, and acute CHF -improving clinically with volume removal with HD -repeat blood gas if concern for worsening hypercarbia -wean oxygen as able # bleeding from TDC site-resolved -CTM #A-fib with RVR #DVT -C/w home Amio -resuming apixaban 5 mg BID # Bilateral leg pain and restless -likely related to rapid fluid / electrolyte shifts with HD -iron deficiency could also contribute to the restlessness -limit opioids and gabapentinoids given initial hypercarbia and drowsiness -trial ropinirole 0.5 scheduled with 0.5 prn -s/p 1 dose of IV iron -optimize lytes #DMII -SSI -Diabetic diet # Hypothyroidism -initiated levothyroxine 25 mcg #Routine Diet: Renal diet 2 GM NA; 2 GM K; 60/60/75 CHO counting level 2 DVT Prophylaxis: DOAC Code Status: Attempt Cardiopulmonary Resuscitation - Inpatient Sylvia Rothman MD 12/16/2023 Red Team - Pager [phone] Associated attestation - Bailey Meadows MD - 12/16/2023 8:44 PM EDT Attending Attestation and Certification Please see Sylvia Rothman MD's note for details of the patient history of presentation and data. Ihave discussed, reviewed and agree with the documented History, Physical findings, Assessment and Plan of care. I have examined the patient myself and personally reviewed all studies. In addition, I certify thatI am a D-H credentialed attending provider with admitting privileges and that the patient meets or has met medical necessity to require an inpatient IPI level of care meeting a minimum of two midnights or is on the [facility] inpatient only procedure list (status C) due to: marked volume overload, acute hypercarbic respiratory failure, refractory hyperkalemia requiring urgent initiation of hemodialysis,acute kidney injury necessitating close monitoring of fluid balance such as intravenous fluids and/or titration of medication to achieve optimal effect and minimize the chance of immediate or severe side effects * Blossom Mclaughlin RD - 12/15/2023 3:04 PM EDT Nutrition Consult Note Hayden Russo is a 48 y.o. male with past medical history of STEMI (treated with primary PCI in 2019), CKD (baseline Cr ~2.5, previously required renal replacement therapy with CVVH), recent CABG with Dr. Dutta 11/13, DMII admitted on 2023 ( Hospital Day 4 days ) for decompensated HFpEF with marked volume overload, acute hypercarbic respiratory failure, and DONAL on CKD with refractory hyperkalemia. Reason for intervention: Education Nutrition Recommendations: Low potassium diet education provided Written materials provided: Potassium Content of Foods Renal Shopping list Answered all questions presented by patient Blossom Mclaughlin RD * Anne Marie Win, PT - 12/15/2023 1:02 PM EDT Physical Therapy Note Visit #3 Patient profile: Hayden Russo is a 48 y.o. male admitted on [address] Loi Encinas MD transferred from [facility] with worsening anasarca associated with SOB. At OSH chest x-ray showed cardiomegaly with left pleural effusion. At [facility] he got 80 mg of IV Lasix and on EKG there were no changes from baseline. Recently underwent CABG(10/30/23 [place]> LAD, SVG> OM2, SVG> PDA)) which was complicated by DONAL requiring CVVH. Since discharge he has followed with Nephrology. #Hyperkalemia in the setting of renal failure He had worsening volume overload despite home torsemide 40mg. 12/10-IR for placement of tunneled hemodialysis catheter to initiate intermittent dialysis. 12/10 iHD initiated, 3L taken off & another iHD run today 12/11 Interval History: 12/12 Dialysis cancelled today due to dressing change/bleeding from HD site. Sandbag applied, stat seal, & IR MD had to suture around cath site for oozing to stop. 12/13 Went to HD this morning. Kidney function improving but uremic platelet dysfunction. Social History: Lives with in [place], [place] in a 2nd floor apartment. 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 & she works out of home also. Home set-up: Inside apartment one level. Bathroom Set-up: tub shower but has shower chair available. Stairs: flight to get to apart Baseline Mobility: Typically independent driving & working up until Oct when he had CABG (10/30/23) & has had home PT and walking 20 min's outdoors, climbing stairs and was hoping to return towork soon until this admission. Equipment at home: Has walker, cane, tub shower with seat, has recliner. Fall history: denies Precautions/Special Considerations: Up with assistance; Fall risk/weak, Todd catheter, R chest tunneled hemodialysis catheter. Renal diet 2 gm Na, 2 Gm of K, carb counting 60/60/75 Mobility and Positioning Recommendations: Pt. should utilize walker and CGA x 2 staff assist for stand-step transfers bed >< chair & ambulation. Encourage to sit upright in bed (bed-chair) or get into chair daily. Please encourage up to chair for meal times as able Encourage progressive distance walking with chair follow; began walking using FWW and CGA x 2 on Monday, continue over weekend as able Subjective: I would love to walk, I was told to eat then I'm leaving for dialysis but that [facility] is awful, I ate grapes. Objective: Patient eager to get walking but ride to dialysis soon arriving so worked up until he needed to leave unit: Pain: I hope I can get something for pain in dialysis if my cramping legs act up again. Vital Signs: HR=75 YiR4=340% on 4 L O2 nc. Patient resting in bed; had been up to recliner earlier; agreeable to walk & get back to bed for ride to dialysis. Rolled R with bed rails and extra time, but managed with bed mobility and to sit up on side of bed on his own, good balance. Seated EOB performing LAQ and ankle pumps before walking while I moved/untangled lines & got situated w/ walker/todd. EOB sitting changed his gown as he requested a larger akosua top. Sit > stand from EOB to walker with CGA , not feeling lightheaded but had push visitor chair in case he needed to sit. He amb with FWW around bed to doorway and turned around as transpo personnel here to bring him to dialysis. Amb back across room to bed ~ 15' x 2 and very steady with walker, has O2 environmental services technician that reached. Amb with CGA each side. He commented he was encouraged how well he felt standing and his LE's felt stronger so happy to be walking again. He let RN lift his legs into bed, transpo personnel got him set to move in bed to HD. RN in room assisting. Education: Pt reminded not to get up alone & he acknowledged. Pt encouraged to walk with staff over weekend. Assessment: Hayden Russo was seen today briefly to assess his ability to ambulate. He's feeling better overall and stronger and steady with walker demonstrating he can begin walking. Toleratedshort distance today as he had to leave for dialysis but anticipate he could have walked farther. Hospital day #5 with with heart failure, Hyperkalemia in the setting of renal failure and requiring dialysis and lasix to manage fluid volume. Had HD three times already with 8 L fluid removed & going back to HD today. Pt will benefit from ongoing therapeutic interventions to achieve therapy goals. Functionally significantly below his baseline and would require rehab before returning home. He lives on a 2nd floor apartment and has FOS to enter home. If he walks more throughout weekend, anticipate he may be ready to try stairs early next week. Inpatient Physical Therapy Plan: 1-3 more times 2-4 times/wk for balance training, bed mobility training, gait training, home exercise program, patient/family education, range of motion, stair training, strengthening, transfer training, and DC planning . Patient & understand and agree with plan. Discharge Recommendations: Based on current findings- swing bed rehabilitation facility, home with home health (based on progression here). Longer he stays @ , may make enough progress to DC home. Consult Recommendations: swing bed rehabilitation facility (Swing vs Home w/ Home services based onprogression) Equipment needs: None Physical Therapy Goals: To be achieved by 12-22-23: ONGOING Pt. to demonstrate knowledge of safety precautions by appropriately requesting assistance to mobilize. MET Pt demonstrate understanding of appropriate exercises to help strengthen( in bed & chair).MET Pt. to perform bed mobility independently. MET Pt. to perform sit><stand transfers independently using a front wheeled walker. MET Patient step transfer bed >< chair with walker and supervision x 1. Pt. to ambulate at least 100 feet with modified independence and with supervision using a a front wheeled walker. Pt. to ambulate up/down flight of stairs using one rail with modified independence and with supervision to enter/exit apartment. Pt will tolerate activity progression with stable pain level & vital signs. Time IN / OUT: 11:50-12:04 Total Time: 14 (TE-F) minutes ANNE MARIE WIN PT Pager: [phone] Physical Therapy Inpatient Rehabilitation Department * Loi Encinas MD - 12/15/2023 11:00 AM EDT [facility] - Red Team Inpatient Progress Note ID: Hayden Russo is a 48 y.o. year old male with past medical history of STEMI (treated withprimary PCI in 2019), CKD (baseline Cr ~2.5, previously required renal replacement therapy with CVVH), recent CABG with Dr. Dutta 11/13, DMII admitted on 2023 ( Hospital Day 5 days ) for decompensated HFpEF with marked volume overload, acute hypercarbic respiratory failure, and DONAL on CKDwith refractory hyperkalemia. Active Hospital Problems Diagnosis Acute on chronic heart failure with preserved ejection fraction (HFpEF) Acute kidney injury superimposed on chronic kidney disease Hyperkalemia Acute hypercapnic respiratory failure Resolved Hospital Problems No resolved problems to display. Interval History / Subjective: - Underwent 3rd session of HD yesterday with another 3 L removed - Ongoing leg pain/restlessness overnight, not relieved with low dose of ropinirole of 0.25 mg - No further bleeding from dialysis catheter site - Otherwise no new complaints Meds: rOPINIRole 0.5 mg Oral Nightly levothyroxine 25 mcg Oral QAM albuteroL 2.5 mg Nebulization 4 Times Daily AMIOdarone 200 mg Oral Daily aspirin 81 mg Oral Daily atorvastatin 40 mg Oral QPM citalopram 10 mg Oral Daily clopidogreL 75 mg Oral Daily pantoprazole EC 40 mg Oral Daily sodium chloride 0.9 % (flush) 5 mL Intravenous BID insulin lispro 1-4 Units Subcutaneous TID AC insulin lispro 0-8 Units Subcutaneous TID WC senna-docusate 2 tablet Oral BID PRN medications sodium chloride 0.9%, rOPINIRole, diphenhydrAMINE, QUEtiapine, acetaminophen, sodium chloride 0.9 % (flush), lidocaine, glucose 40% oral geL OR dextrose OR glucagon, polyethylene glycoL (MIRALAX) oral powder AND bisacodyL AND bisacodyL EC AND lactulose AND lactulose AND magnesium citrate AND Tap water enema, ondansetron Physical Exam: Last value Range last 24 hrs Temperature Temp: 36.7 ??C (98.1 ??F) Temp: [36 ??C (96.8 ??F)-36.8 ??C (98.3 ??F)] Heart Rate Heart Rate: 80 Heart Rate: [72-86] Blood Pressure BP: 145/65 BP: (123-156)/(58-83) Respiratory Rate Resp: 16 Resp: [11-23] SpO2 SpO2: 98 % SpO2: [80 %-100 %] Intake/Output Summary (Last 24 hours) at 12/15/20232204 Last data filed at 12/15/20232029 Gross per 24 hour Intake 655 ml Output 3875 ml Net -3220 ml Patient Vitals for the past 168 hrs: Weight 12/15/23 0343 121 kg (266 lb 12.1 oz) 12/14/23 0600 127.1 kg (280 lb 3.3 oz) 12/13/23 0749 123.2 kg (271 lb 9.7 oz) 12/12/23 0549 132.2 kg (291 lb 7.2 oz) 12/10/23 1000 132.5 kg (292 lb) Admit wt: 132.45 kg Physical Exam: Gen: AAO, NAD, pleasant HEENT: anicteric, EOMI CV: RRR, no murmurs Resp: Normal work of breathing, CTAB anteriorly Abd: normal bowel sounds, soft, non-tender Ext: 1+ B/L lower ext edema Skin: no rashes, lesions, or ulcerations noted Neuro: AAO, CN II-XII grossly intact, moves all extremities spontaneously Labs: Recent Labs 12/15/2321512/14/2344512/13/23 0306 WBC 7.76 6.19 7.17 HGB 8.0* 8.0* 7.9* HCT 27.6* 28.2* 27.1* PLATELET 158 172 150 Recent Labs 12/15/23 02112/14/23 0446 12/13/23 0306 NA 141 141 138 K 4.2 4.1 4.3 CL 105 105 102 CO2 27 28 26 BUN 37* 45* 45* CREATININE 2.62* 2.91* 2.99* GLUCOSE 130 90 132 Recent Labs 12/15/2321512/14/23 0446 12/13/23 0306 12/12/23 1607 12/10/23 2339 12/10/232020 CALCIUM 8.5 8.5 8.6 -- < > 8.8 MAGNESIUM -- 0.95 -- 0.79 -- 0.96 PHOS -- 5.4* -- 4.4 -- 6.7* < > = values in this interval not displayed. Recent Labs 12/10/23 1410 AST 23 ALT 62* ALKPHOS 107 BILITOT 0.3 BILIDIR <0.2 Other significant labs: Imaging: Results for orders placed or performed during the hospital encounter of 12/10/23 XR Chest One View (Exam End: 2023 1:38 PM) Result Value WORKSTATION ID [id number] Impression Decreased left lower lobe atelectasis. Otherwise stable exam. CT Chest wo Contrast (Generic) (Exam End: 12/13/2023 5:12 PM) Result Value WORKSTATION ID [id number] Impression 1. Unchanged small left and trace right pleural effusions. 2. Moderate left and mild right lower lobe subsegmental atelectasis. 3. Nonspecific tree-in-bud opacities in the posterior right middle lobe, possible early infectious/inflammatory pulmonary process. 4. Right jugular central venous catheter tip within the right atrium. 5. Soft tissue edema within the midline chest subcutaneous fat and posterior to the sternum, likely postsurgical change following sternotomy. 6. No subcutaneous hematoma. TTE 12/11/23: Technically limited exam due to poor acoustic windows. -Wall thickness is mildly increased. Global left ventricular systolic function is probably normal. Left ventricular ejection fraction is estimated visually at 60% with inferior wall motion abnormality. The apex and mid anterior/anterolateral wall are [...] is not well visualized on today's exam. Microbiology: Microbiology Results (Last 30 days) No results found for the last 720 hours. Assessment and Plan: Hayden Russo is a 48 y.o. year old male with past medical history of COLLINS (treated with primary PCI in 2019), CKD (baseline Cr ~2.5, previously required renal replacement therapy with CVVH), recent CABG with Dr. Dutta 11/13, DMII admitted on 2023 ( Hospital Day 5 days ) for decompensated HFpEF with marked volume overload, acute hypercarbic respiratory failure, metabolic encephalopathy, and DONAL on CKD with refractory hyperkalemia requiring urgent initiation of HD on 12/10. Now doing well following successive HD treatments and aggressive volume removal. It remains TBD whether he will need ongoing HD going forward, but his good UOP and stable Cr in interdialytic period suggest that he may not. Course complicated by bleeding from TDC site that has since resolved with manual pressure, suture, and holding apixban. 12/15/23 Bleeding from catheter site now resolved. No hematoma seen on CT scan. Patient remained hemodynamically stable and Hgb levels stable at 8. Patient to go for 4th session of iHD today. # DONAL on CKD\ # Hyperkalemia # volume overload # acidosis (primarily respiratory) #DONAL on CKD #Cardiorenal syndrome, likely -HD started urgently 12/10 -ongoing HD per Nephrology -Monitor Cr and UOP in inter-dialytic period -adjunctive diuresis as needed -Renally dose medications -Close monitoring of electrolytes -Renal diet, Nutrition consult for dietary education #Acute on chronic HFpEF with severe volume overload #Recent CABG #ASCVD, premature #HTN -Responded to 160 mg IV lasix on admission -receiving iHD since 12/10 -continue volume removal with HD and adjunctive diuresis as needed -C/w home ASA and Plavix for now -- per discussion with Pharmacy and Cardiology he no longer needs triple tx and can stop aspirin when apixaban is resumed -C/w home atorvastatin -HOLDING home losartan -TTE findings above -Daily weights -Strict I's and O's -Tele # acute hypercarbic respiratory failure # hypoxia -likely due to combination of SWAPNIL, OHS, and acute CHF -improving clinically with volume removal with HD -repeat blood gas if concern for worsening hypercarbia -wean oxygen as able # bleeding from TDC site - holding apixaban for now - s/p suture placement 12/13 - manual pressure PRN #A-fib with RVR #DVT -C/w home Amio -holding home apixaban in setting of bleeding from TDC site - consider resuming apixaban soon if norecurrent bleeding # Bilateral leg pain and restless -likely related to rapid fluid / electrolyte shifts with HD -iron deficiency could also contribute to the restlessness -limit opioids and gabapentinoids given initial hypercarbia and drowsiness -trying ropinirole - 50 mg qhs with additional 50 mg prn -s/p 1 dose of IV iron -optimize lytes -anticipate this to resolve once no longer getting such aggressive HD / volume removal #DMII -SSI -Diabetic diet # Hypothyroidism -initiated levothyroxine 25 mcg #Routine Diet: Renal diet 2 GM NA; 2 GM K; 60/60/75 CHO counting level 2 DVT Prophylaxis: DOAC Code Status: Attempt Cardiopulmonary Resuscitation - Inpatient LOI ENCINAS MD 12/15/2023 Red Team - Pager [phone] * Vu Newman DO - 12/15/2023 7:02 AM EDT INTERVENTIONAL RADIOLOGY Purse string suture placed yesterday around tunneled HD line to decrease bleeding. Patient underwent dialysis without issues following placement. Kidney function improving but uremic platelet dysfunction and anticoagulation regimen place the patient at high risk for ongoing ooze if purse string suture taken down. Suture will need to be removed prior to discharge with a few hours of monitoring to make sure no evidence of re-bleeding. Will plan for removal tentatively Monday or Monday. If discharge is planned prior to this time frame please contact IR between 8AM-5PM for removal planning. Vu Newman DO, PGY-5 [facility] [place] Interventional Radiology [phone] * Steve Dotson MD - 12/15/2023 6:54 AM EDT Nephrology Consult Note Hayden Russo [id number] 1975 ID: Ambrocio Russo is a 48 YO M with history of CKD G4/A3 requiring prior CVVH 11/13, recent CABG 11/13, STEMI 2019 s/p PCI to RCA, and T2DM who is admitted from [facility] with hypervolemia, shortness of breath, and likely decompensated heart failure. Nephrology is consulted for DONAL and hyperkalemia Interval events & Subjective: -3L off on UF yesterday -Seen at the start of HD feeling well. Physical Examination: Last value 24 Hour Temperature Range Temp: [36.3 ??C (97.3 ??F)-37 ??C (98.6 ??F)] 12 Hour Heart Rate Range Heart Rate: [77-86] 24 Hour Blood Pressure Range BP: (107-174)/(58-82) Respiratory Rate Resp: 13 SpO2 SpO2: 99 % Body mass index is 38.28 kg/m??. General: No acute distress, comfortable. Obese habitus HEENT: Eyes anicteric and not injected. No oropharyngeal lesions. Cardiac: Normal rate, and regular rhythm. S1S2 appreciated. Large central midline scar. R TDC site without active bleed today. Chest: Good effort and aeration. Some crackles. Less. Abdomen: BS present. Soft, nontender, non-distended. Extremities: Warm, well perfused. Has edema improved, but present. Skin: No abnormalities noted. Skin turgor expected for age. Neurologic: No asterixis. Alert and oriented x 4. Follows all requests. rOPINIRole 0.25 mg Oral Nightly levothyroxine 25 mcg Oral QAM albuteroL 2.5 mg Nebulization 4 Times Daily AMIOdarone 200 mg Oral Daily aspirin 81 mg Oral Daily atorvastatin 40 mg Oral QPM citalopram 10 mg Oral Daily clopidogreL 75 mg Oral Daily pantoprazole EC 40 mg Oral Daily sodium chloride 0.9 % (flush) 5 mL Intravenous BID insulin lispro 1-4 Units Subcutaneous TID AC insulin lispro 0-8 Units Subcutaneous TID WC senna-docusate 2 tablet Oral BID Lab Results Component Value Date CREATININE 2.62 (H) 12/15/2023 CREATININE 2.91 (H) 12/14/2023 CREATININE 2.99 (H) 12/13/2023 CREATININE 3.77 (H) 12/12/2023 CREATININE 3.78 (H) 12/12/2023 CREATININE 2.83 (H) 09/22/2023 CREATININE 2.39 (H) 08/04/2023 CREATININE 2.49 (H) 06/07/2023 CREATININE 2.57 (H) 06/06/2023 CREATININE 2.16 (H) 06/05/2023 ESTGFR 27 (L) 09/22/2023 ESTGFR 33 (L) 08/04/2023 ESTGFR 32 (L) 06/07/2023 ESTGFR 30 (L) 06/06/2023 ESTGFR 38 (L) 06/05/2023 NA 141 12/15/2023 NA 141 12/14/2023 NA 138 12/13/2023 NA 138 09/22/2023 NA 137 08/04/2023 NA 136 06/07/2023 K 4.2 12/15/2023 K 4.1 12/14/2023 K 4.3 12/13/2023 K 4.9 09/22/2023 K 4.6 08/04/2023 K 4.7 06/07/2023 CO2 27 12/15/2023 CO2 28 12/14/2023 CO2 26 12/13/2023 CO2 22 09/22/2023 CO2 23 08/04/2023 CO2 21 (L) 06/07/2023 Lab Results Component Value Date CALCIUM 8.5 12/15/2023 CALCIUM 8.5 12/14/2023 CALCIUM 8.6 12/13/2023 CALCIUM 9.3 09/22/2023 CALCIUM 9.2 08/04/2023 CALCIUM 8.8 06/07/2023 PHOS 5.4 (H) 12/14/2023 PHOS 4.4 12/12/2023 PHOS 6.7 (H) 2023 PHOS 3.4 10/12/2018 PTH 63 11/27/2023 PTH 239 (H) 11/04/2023 25OHVITD 13 (L) 11/27/2023 25OHVITD 9 (L) 11/04/2023 FREET4 0.85 (L) 2023 TSH 10.70 (H) 2023 TSH 3.68 06/04/2023 URICACID 12.8 (H) 11/04/2023 Lab Results Component Value Date HGB 8.0 (L) 12/15/2023 HGB 8.0 (L) 12/14/2023 HGB 7.9 (L) 12/13/2023 HGB 12.4 (L) 09/22/2023 HGB 12.0 (L) 08/04/2023 HGB 9.7 (L) 06/07/2023 FERRITIN 209 11/27/2023 FERRITIN 555 (H) 11/15/2023 FERRITIN 835 (H) 11/04/2023 IRONSAT 13 (L) 11/27/2023 IRONSAT 11 (L) 11/15/2023 IRONSAT 10 (L) 11/04/2023 IRONSAT 16 (L) 10/14/2018 Lab Results Component Value Date UMICALBCALC 1,478 (H) 11/27/2023 UMICALBCALC 591 (H) 11/04/2023 UPROTCREAT 2.5 11/27/2023 UPROTCREAT 1.2 11/04/2023 ALBUMIN 3.4 2023 ALBUMIN 3.5 11/27/2023 ALBUMIN 2.7 (L) 11/11/2023 ALBUMIN 3.8 09/22/2023 ALBUMIN 3.8 10/12/2018 Assessment & Plan: Ambrocio Russo is a 48 YO M with 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 Nephrology is consulted for DONAL and hyperkalemia # Non-oliguric DONAL on CKD G4/A3 CKD G4/A3: Likely secondary to underlying diabetes (A1c since 2018 9.5-13.9) as well as many DONAL most notably post-CABG 10/2023 needing CVVH DONAL: Likely secondary to decompensated HF with intravascular hypervolemia with resultant cardiorenal like physiology and some post-renal obstruction. -Baseline sCr: Likely closer to about 3.2, admit 4.0-->4.38. -Urinary studies: None here. Last UACR 1478 11/27/23. -I/Os: urinating well -Serologies: C3, C4 normal 12/10. Paraprotein pending, possible band pending IF. -Imaging: TTE 12/10 LVEF 60%, some inferior WMA, RV dilation Recommendations: -Seen on HD 12/14 (ran 12/10, 12/11, 12/13) feeling well. -No HD over the weekend, assess going into Monday. -Continue diuresis. -maintain todd -Please avoid NSAIDs, IV contrast, nephrotoxins -Keep MAP >65 as able to -Renally dose medications as appropriate # Blood pressure and Hemodynamics Acceptable for now, prioritize fluid removal # Electrolytes Hyperkalemia is a long issue for him, on ARB at home, with advanced CKD and frequent cardiac manifestations and DONAL. -Treatment as above # Acid/Base His VBG is 7.11/69/42/21, corrected for venous is about 7.16, PC2 61-63. Overall consistent with primarily a respiratory acidosis, though is certainly mixed. There is no anion gap. -NaHCO3 is OK for now # Anemia Hgb here is 8.0-8.6 range. Recent iron studies low -venofer on 12/11, planned 12/13. -EPO given on 12/14. # Mineral and Bone Has vitamin D deficiency, 13 on 11/27/23. PTH is 63. Phos is high. Calcium is normal. SUMMARY OF RECOMMENDATIONS -Next HD to be determined. This case was staffed with Dr. Deluna Thank you for involving us in the care of this patient. Nephrology will continue to follow. Please contact me at phone: [phone] or pager: [phone] with any questions. Steve Dotson MD Nephrology & Hypertension Fellow * Christy Yepez, OT - 12/14/2023 3:22 PM EDT Occupational Therapy Treatment Note Treatment Number OT: 2 Patient Dx: Hayden Russo is a 48 y.o. male admitted on 2023 with past medical history of STEMI (treated with primary PCI in 2019), CKD (baseline Cr ~2.5, previously required renal replacement therapy with CVVH), recent CABG with Dr. Dutta 11/13, DMII admitted on 2023 (Hospital Day 2 days) for HF exacerbation. Interval History: 12/12 Dialysis cancelled today due to dressing change/bleeding from HD site. Sandbag applied, stat seal, & FABIANA WILLS had to suture around cath site for oozing to stop. 12/13 Went to HD this morning. Social History: Patient lives with his in an 2nd floor apt. 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 Once inside, single floor. Tub shower, with chair available. Regular bed, but also has a recliner DME: RW, cane, shower chair Baseline ADL/Mobility: Typically independent with all ADL/IADL tasks. Drives. Works. Since his CABGin Oct, has been receiving home therapy, but reports he has progressed to an independent level with ADLs and mobility w/o a RW. Has not yet returned to work. Precautions/Special Considerations: Fall; Supplemental 02; R chest tunneled hemodialysis catheter; Todd S: I want to get out of this bed. My legs are cramping so bad. I feel weak O: Patient seen for skilled OT treatment, and demonstrated the following: Self-care: Washed face with set up. Deferred further bathing, as he reports he was sponge bathed earlier in the day Dependent to don socks CGA x 2 stand pivot transfer to/from the commode and bedside chair with support of a RW. Unable to have a BM Functional Mobility: Supine to sit: Min A to R side of the bed with HOB about 30 degrees Sitting balance: Good; Supervision Sit to stand from EOB: Completed 3 times with Min A x 2 up to a RW. Cues for hand placement Transfers: Few steps from bed to chair, and to/from chair and commode with CGA x 2, use of a RW Stand to sit: CGA with cues for hand placement Cognitive Status/Behavior: Behavior / Mood: Fatigued, but motivated to participate; Pleasant Alert and oriented to: person, place, month, year, and situation Follows commands: multi step and 75% of the time Attention: WFL Safety awareness: WFL Vision & Perception: States he has glasses, but does not need hand ii thermal cutter. Tends to wear them for work. 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 Patient maintained and Sp02 >90% throughout his session. Once seated in his bedside chair at the end of his session, 02 noted to fluctuate between 88-90%. RN requested patient be placed back on 1L Pain: Did not rate, but reporting significant cramping to his BLE's Education: Pt education ongoing regarding: Role of occupational therapy/rehabilitation, Transfers, Assistive device/technique, ADL, Positioning, Safety, Functional Mobility, Balance, Recommendations,and Discharge planning. Staff Communication: Patient status, treatment, and mobility recommendations discussed with nursing/other staff. ASSESSMENT: Patient was seen for an OT session per POC. Increased progress noted in today's session, as he demonstrated the ability to transfer to his bedside chair and commode with CGA/Min A x 2 andsupport of a RW. He continues to weak, but improvement noted. At this time, he will continue to benefit from a rehab stay, but may progress to home depending on the length of his hospital stay. Pt will benefit from ongoing therapeutic interventions to achieve pt's and therapy goals Equipment needs at discharge: to be determined Anticipated Discharge Disposition: acute rehabilitation facility Activity Recommendations: Promote normalcy by encouraging participation in common daily tasks & leisure activities by providing set up assist Give choices when possible to support feelings of autonomy Frequent orientation verbally & visually Keep glasses, hearing aides, cell phones, tablets, etc within reach Facilitate a normal sleep-wake cycle Provide brief, clear instruction from one source at a time Provide calming music, favorite TV programs, magazines or newspapers Utilize upright chair position using bed features or transfer to recliner chair as appropriate with1-2 assist, stand pivot with support of a RW Goals: To be achieved by 12/26/23: Patient will don/doff UB/LB clothing independently, seated, with AE, as needed Patient will complete toileting tasks (hygiene, clothing management, transfers) independently with AE, as needed Patient will ambulate household distances independently with AD, as needed Patient will complete UB/LB sponge bathing tasks independently, while seated with AE, as needed Patient will complete grooming task (comb hair, brush teeth, shave) independently, standing at the sink Patient will complete a light meal preparation task independently at an ambulatory level Therapy Frequency (OT): 2-4 times/wk Total Minutes, Occupational Therapy: 42 Pager: [phone] CHRISTY YEPEZ, OT 12/14/2023 Occupational Therapy Rehabilitation Department * Anne Marie Win, PT - 12/14/2023 2:46 PM EDT Physical Therapy Note Visit #2 Patient profile: Hayden Russo is a 48 y.o. male admitted on [address] Loi Encinas MD transferred from [facility] with worsening anasarca associated with SOB. At OSH chest x-ray showed cardiomegaly with left pleural effusion. At [facility] he got 80 mg of IV Lasix and on EKG there were no changes from baseline. Recently underwent CABG(10/30/23 [place]> LAD, SVG> OM2, SVG> PDA)) which was complicated by DONAL requiring CVVH. Since discharge he has followed with Nephrology. #Hyperkalemia in the setting of renal failure He had worsening volume overload despite home torsemide 40mg. 12/10-IR for placement of tunneled hemodialysis catheter to initiate intermittent dialysis. 12/10 iHD initiated, 3L taken off & another iHD run today 12/11 Interval History: 12/12 Dialysis cancelled today due to dressing change/bleeding from HD site. Sandbag applied, stat seal, & IR MD had to suture around cath site for oozing to stop. 12/13 Went to HD this morning. Social History: Lives with in [place], [place] in a 2nd floor apartment. 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 Home set-up: Inside apartment one level. Bathroom Set-up: tub shower but has shower chair available. Stairs: flight to get to apart Baseline Mobility: Typically independent driving & working up until Oct when he had CABG (10/30/23) & has had home PT and walking 20 min's outdoors, climbing stairs and was hoping to return towork soon until this admission. Equipment at home: Has walker, cane, tub shower with seat, has recliner. Fall history: denies Precautions/Special Considerations: Up with assistance; Fall risk/weak today, Todd catheter, R chest tunneled hemodialysis catheter: Oliguria. Renal diet 2 gm Na, 2 Gm of K, carb counting 60/60/75 Mobility and Positioning Recommendations: Pt. should utilize walker and Min (A) x 2 staff assist for stand-step transfers bed >< chair or commode (close). Encourage to sit upright in bed (bed-chair) or get into chair daily. Please encourage up to chair for meal times as able Subjective: I can't wait to get out of this bed. I feel so weak. I just can't seem to get comfortable but I do like chair better than the bed. Objective: Patient seen for physical therapy and demonstrated the following: Pain: back of my legs are cramping Vital Signs: HR=66 SpO2=98% @ rest and 89% w/ activity; needed1 L O2 nc back on (per RN) BP= 121/72 (87) in bed RV=765/63 (78) sitting EOB Patient resting in bed and looking forward to moving as he's uncomfortable in bed. Rolled to R with bed rails and extra time, min A to help torso upright, feeling lightheaded. BP drop some. Sat EOB for several min's. Seated EOB performing LAQ and ankle pumps as he states back of his legs cramping. Sit > stand from EOB to walker with Min A x [address], sat back on bed. Stand-step transfer with chair close using FWW and Min A x 2, able to step but feeling weak overall. Positioned in chair trying to see if legs more comfortable being down or upright, felt urge for commode. Stood from recliner, step transfer with walker to commode close with CGA x 2 but false alarm so step transfer off commode back to recliner. Pt able to lean forward in recliner and states it feels good on his back & buttocks to shift wtand RN in room okayed he maneuver within chair. Pt left in bedside recliner chair with gaymar cushion in seat, seat alarm on, call tenorio in reach, drinks on bedside table to his R following visit. Education: Pt reminded not to get up alone & he acknowledged. Pt going to continue performing ankle pumps, LAQ, heel slides in bed, rolling legs on mattress to help leg cramps. Assessment: Hayden Russo was seen today for physical therapy treatment session for continuation of POC. Hospital day #4 with with heart failure, Hyperkalemia in the setting of renal failure and requiring dialysis and lasix to manage fluid volume. Had HD three times already with 8 L fluid removed per RN. Set back yesterday with bleeding from HD site which required suturing. He remains motivated to move yet lightheaded with drop in BP and has had a lot of fluid status change in past 4 days. He remains on oxygen to keep stable saturations. He is feeling muscle cramps and weakness. Today was his first day OOB and completed a step transfer with walker and 2 assist to chair and commode. He's hoping to be able to begin walking soon; assess tomorrow. Pt will benefit from ongoing therapeutic interventions to achieve therapy goals. Functionally significantly below his baseline and would require rehab before returning home. He lives on a 2nd floor apartment and has FOS to enter home. Inpatient Physical Therapy Plan: 2-4 times/wk 2-4 times/wk for balance training, bed mobility training, gait training, home exercise program, patient/family education, range of motion, stair training, strengthening, transfer training, and DC planning . Patient & understand and agree with plan. Discharge Recommendations: Based on current findings- swing bed rehabilitation facility (swing bed vs home based on progress) Consult Recommendations: swing bed rehabilitation facility (Swing vs Home w/ Home services based onprogression) Equipment needs: None Physical Therapy Goals: To be achieved by 12-22-23: ONGOING Pt. to demonstrate knowledge of safety precautions by appropriately requesting assistance to mobilize. Pt. to demonstrate understanding of appropriate exercises to help strengthen in which he can perform in bed or chair. Pt. to perform bed mobility independently. Pt. to perform sit><stand transfers independently using a front wheeled walker. Patient step transfer bed >< chair with walker and supervision x 1. Pt. to ambulate at least 100 feet with modified independence and with supervision using a a front wheeled walker. Pt. to ambulate up/down flight of stairs using one rail with modified independence and with supervision to enter/exit apartment. Pt will tolerate activity progression with stable pain level & vital signs. Time IN / OUT: 13:55-14:36 Total Time: 41 (TE-F x 3) minutes ANNE MARIE WIN PT Pager: [phone] Physical Therapy Inpatient Rehabilitation Department * Steve Dotson MD - 12/14/2023 11:11 AM EDT Nephrology Consult Note Hayden Russo [id number] ID: Ambrocio Russo is a 48 YO M with history of CKD G4/A3 requiring prior CVVH 11/13, recent CABG 11/13, STEMI 2019 s/p PCI to RCA, and T2DM who is admitted from [facility] with hypervolemia, shortness of breath, and likely decompensated heart failure. Nephrology is consulted for DONAL and hyperkalemia Interval events & Subjective: -Seen on HD today tolerating relatively well. Having some leg cramping. He denies nausea currently.Still has leg swelling Physical Examination: Last value 24 Hour Temperature Range Temp: [36.1 ??C (97 ??F)-37.1 ??C (98.7 ??F)] 12 Hour Heart Rate Range Heart Rate: [75-82] 24 Hour Blood Pressure Range BP: (144-178)/(58-82) Respiratory Rate Resp: 18 SpO2 SpO2: 100 % Body mass index is 40.21 kg/m??. General: No acute distress, comfortable. Obese habitus HEENT: Eyes anicteric and not injected. No oropharyngeal lesions. Cardiac: Normal rate, and regular rhythm. S1S2 appreciated. Large central midline scar. R TDC site without active bleed today. Chest: Good effort and aeration. Some crackles. Less. Abdomen: BS present. Soft, nontender, non-distended. Extremities: Warm, well perfused. Has edema improved, but present. Skin: No abnormalities noted. Skin turgor expected for age. Neurologic: No asterixis. Alert and oriented x 4. Follows all requests. iron sucrose (Venofer) 300 mg in sodium chloride 0.9% 115 mL infusion 300 mg Intravenous Once in dialysis levothyroxine 25 mcg Oral QAM albuteroL 2.5 mg Nebulization 4 Times Daily AMIOdarone 200 mg Oral Daily aspirin 81 mg Oral Daily atorvastatin 40 mg Oral QPM citalopram 10 mg Oral Daily clopidogreL 75 mg Oral Daily pantoprazole EC 40 mg Oral Daily sodium chloride 0.9 % (flush) 5 mL Intravenous BID insulin lispro 1-4 Units Subcutaneous TID AC insulin lispro 0-8 Units Subcutaneous TID WC senna-docusate 2 tablet Oral BID Lab Results Component Value Date CREATININE 2.91 (H) 12/14/2023 CREATININE 2.99 (H) 12/13/2023 CREATININE 3.77 (H) 12/12/2023 CREATININE 3.78 (H) 12/12/2023 CREATININE 3.78 (H) 12/12/2023 CREATININE 2.83 (H) 09/22/2023 CREATININE 2.39 (H) 08/04/2023 CREATININE 2.49 (H) 06/07/2023 CREATININE 2.57 (H) 06/06/2023 CREATININE 2.16 (H) 06/05/2023 ESTGFR 27 (L) 09/22/2023 ESTGFR 33 (L) 08/04/2023 ESTGFR 32 (L) 06/07/2023 ESTGFR 30 (L) 06/06/2023 ESTGFR 38 (L) 06/05/2023 NA 141 12/14/2023 NA 138 12/13/2023 NA 139 12/12/2023 NA 138 09/22/2023 NA 137 08/04/2023 NA 136 06/07/2023 K 4.1 12/14/2023 K 4.3 12/13/2023 K 4.0 12/12/2023 K 4.9 09/22/2023 K 4.6 08/04/2023 K 4.7 06/07/2023 CO2 28 12/14/2023 CO2 26 12/13/2023 CO2 24 12/12/2023 CO2 22 09/22/2023 CO2 23 08/04/2023 CO2 21 (L) 06/07/2023 Lab Results Component Value Date CALCIUM 8.5 12/14/2023 CALCIUM 8.6 12/13/2023 CALCIUM 8.8 12/12/2023 CALCIUM 9.3 09/22/2023 CALCIUM 9.2 08/04/2023 CALCIUM 8.8 06/07/2023 PHOS 5.4 (H) 12/14/2023 PHOS 4.4 12/12/2023 PHOS 6.7 (H) 2023 PHOS 3.4 10/12/2018 PTH 63 11/27/2023 PTH 239 (H) 11/04/2023 25OHVITD 13 (L) 11/27/2023 25OHVITD 9 (L) 11/04/2023 FREET4 0.85 (L) 2023 TSH 10.70 (H) 2023 TSH 3.68 06/04/2023 URICACID 12.8 (H) 11/04/2023 Lab Results Component Value Date HGB 8.0 (L) 12/14/2023 HGB 7.9 (L) 12/13/2023 HGB 8.3 (L) 12/12/2023 HGB 12.4 (L) 09/22/2023 HGB 12.0 (L) 08/04/2023 HGB 9.7 (L) 06/07/2023 FERRITIN 209 11/27/2023 FERRITIN 555 (H) 11/15/2023 FERRITIN 835 (H) 11/04/2023 IRONSAT 13 (L) 11/27/2023 IRONSAT 11 (L) 11/15/2023 IRONSAT 10 (L) 11/04/2023 IRONSAT 16 (L) 10/14/2018 Lab Results Component Value Date UMICALBCALC 1,478 (H) 11/27/2023 UMICALBCALC 591 (H) 11/04/2023 UPROTCREAT 2.5 11/27/2023 UPROTCREAT 1.2 11/04/2023 ALBUMIN 3.4 2023 ALBUMIN 3.5 11/27/2023 ALBUMIN 2.7 (L) 11/11/2023 ALBUMIN 3.8 09/22/2023 ALBUMIN 3.8 10/12/2018 Assessment & Plan: Ambrocio Russo is a 48 YO M with 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 Nephrology is consulted for DONAL and hyperkalemia # Non-oliguric DONAL on CKD g4/A3 CKD G4/A3: Likely secondary to underlying diabetes (A1c since 2018 9.5-13.9) as well as many DONAL most notably post-CABG 10/2023 needing CVVH DONAL: Likely secondary to decompensated HF with intravascular hypervolemia with resultant cardiorenal like physiology and some post-renal obstruction. -Baseline sCr: Likely closer to about 3.2, admit 4.0-->4.38. -Urinary studies: None here. Last UACR 1478 11/27/23. -I/Os: urinating well -Serologies: C3, C4 normal 12/10. Paraprotein pending, possible band pending IF. -Imaging: TTE 12/10 LVEF 60%, some inferior WMA, RV dilation Recommendations: -Seen on HD 12/13 (ran 12/10, 12/11) tolerating relatively well -Plan on HD again tomorrow 3 hours, 300 BFR, no heparin -Access: TDC placed 12/10 -3 hours, 300 BFR, goal 3L off. -remains to be seen on his ability to come off of dialysis -maintain todd -Please avoid NSAIDs, IV contrast, nephrotoxins -Keep MAP >65 as able to -Renally dose medications as appropriate # Blood pressure and Hemodynamics Acceptable for now, prioritize fluid removal # Electrolytes Hyperkalemia is a long issue for him, on ARB at home, with advanced CKD and frequent cardiac manifestations and DONAL. -Treatment as above # Acid/Base His VBG is 7.11/69/42/21, corrected for venous is about 7.16, PC2 61-63. Overall consistent with primarily a respiratory acidosis, though is certainly mixed. There is no anion gap. -NaHCO3 is OK for now # Anemia Hgb here is 8.0-8.6 range. Recent iron studies low -venofer on 12/11, planned 12/13. # Mineral and Bone Has vitamin D deficiency, 13 on 11/27/23. PTH is 63. Phos is high. Calcium is normal. SUMMARY OF RECOMMENDATIONS -HD again tomorrow with EPO This case was staffed with Dr. Deluna Thank you for involving us in the care of this patient. Nephrology will continue to follow. Please contact me at phone: [phone] or pager: [phone] with any questions. Steve Dotson MD Nephrology & Hypertension Fellow Associated attestation - Ariel Deluna MD - 12/14/2023 11:26 AM EDT The patient was seen and examined with the nephrology fellow. Please see the nephrology fellow's note from today for details. I have reviewed the fellow's note including the exam, assessment and plan. My evaluation of the patient is as follows: Patient seen on HD/ doing well/ still on O2/will continue dialysis tomorrow and focus on more ultrafiltration. * Vu Newman DO - 12/14/2023 9:27 AM EDT Purse string suture placed at bedside around catheter insertion site. No evidence of oozing following placement of suture. Will plan to let down over the next couple days after dialysis complete. Vu Newman DO [facility] [place] Interventional Radiology [phone] * Michaela Lopez RN - 12/14/2023 9:00 AM EDTSummary: Progress note 9:00 am patient transferred to Dialysis this morning by transport. 2 liters NC. Iron medication with patient. Stable VS. No pain. * Loi Encinas MD - 12/14/2023 8:48 AM EDT [facility] Medicine - Red Team Inpatient Progress Note ID: Hayden Russo is a 48 y.o. year old male with past medical history of STEMI (treated withprimary PCI in 2019), CKD (baseline Cr ~2.5, previously required renal replacement therapy with CVVH), recent CABG with Dr. Dutta 11/13, DMII admitted on 2023 ( Hospital Day 4 days ) for decompensated HFpEF with marked volume overload, acute hypercarbic respiratory failure, and DONAL on CKDwith refractory hyperkalemia. Active Hospital Problems Diagnosis Acute on chronic heart failure with preserved ejection fraction (HFpEF) Acute kidney injury superimposed on chronic kidney disease Hyperkalemia Acute hypercapnic respiratory failure Resolved Hospital Problems No resolved problems to display. Interval History / Subjective: -Bleeding from dialysis catheter yesterday. Dressings changed, stat seal placed and bleeding stopped around 1900 after pressure held for 30 min. Sandbag placed overnight. Bleeding resumed at 0500 butresolved with dressing change, pressure and suture placement - No bleeding from catheter this AM - Quetiapine and then benadryl given overnight for sleep Meds: iron sucrose (Venofer) 300 mg in sodium chloride 0.9% 115 mL infusion 300 mg Intravenous Once in dialysis levothyroxine 25 mcg Oral QAM albuteroL 2.5 mg Nebulization 4 Times Daily AMIOdarone 200 mg Oral Daily aspirin 81 mg Oral Daily atorvastatin 40 mg Oral QPM citalopram 10 mg Oral Daily clopidogreL 75 mg Oral Daily pantoprazole EC 40 mg Oral Daily sodium chloride 0.9 % (flush) 5 mL Intravenous BID insulin lispro 1-4 Units Subcutaneous TID AC insulin lispro 0-8 Units Subcutaneous TID WC senna-docusate 2 tablet Oral BID PRN medications heparin (porcine), sodium chloride 0.9%, diphenhydrAMINE, QUEtiapine, acetaminophen, sodium chloride 0.9 % (flush), lidocaine, melatonin, glucose 40% oral geL OR dextrose OR glucagon, polyethylene glycoL (MIRALAX) oral powder AND bisacodyL AND bisacodyL EC AND lactulose AND lactulose AND magnesium citrate AND Tap water enema, ondansetron Current Facility-Administered Medications Medication Dose Route Frequency heparin (porcine) (1,000 units/mL) injection 1,000-10,000 Units 1,000-10,000 Units Intercatheter Once in dialysis PRN sodium chloride 0.9% infusion 100 mL Intravenous Q15 Min PRN diphenhydrAMINE (Benadryl) capsule 50 mg 50 mg Oral Nightly PRN QUEtiapine (Seroquel) tablet 50 mg 50 mg Oral Nightly PRN acetaminophen (Tylenol) tablet 975 mg 975 mg Oral Q6H PRN sodium chloride 0.9 % (flush) (BD PosiFlush Normal Saline 0.9) flush 5-20 mL 5- 20 mL Intravenous Q1Min PRN lidocaine (Xylocaine) 1% (10 mg/mL) injection 3 mg 0.3 mL Subcutaneous Once PRN melatonin tablet 3 mg 3 mg Oral Nightly PRN glucose (Glutose) 40% oral geL 15-30 g of glucose Buccal Q15 Min PRN Or dextrose 10% infusion 250 mL Intravenous Q15 Min PRN Or glucagon (Glucagen) (1 mg/mL) injection solution 1 mg 1 mg Intramuscular Q15 Min PRN polyethylene glycoL (Miralax) packet 17 g 17 g Oral Daily PRN And bisacodyL (Dulcolax) suppository 10 mg 10 mg Rectal Daily PRN And bisacodyL EC (Dulcolax) tablet 10 mg 10 mg Oral BID PRN And lactulose (Chronulac) (0.67 gram/mL) oral liquid 20 g 20 g Oral Daily PRN And lactulose (Chronulac) (0.67 gram/mL) oral liquid 20 g 20 g Oral Daily PRN And magnesium citrate oral liquid 296 mL 296 mL Oral Once PRN ondansetron (pf) (Zofran) (2 mg/mL) injection 4 mg 4 mg Intravenous Q8H PRN Physical Exam: Last value Range last 24 hrs Temperature Temp: 36.9 ??C (98.4 ??F) Temp: [36.1 ??C (97 ??F)-37.1 ??C (98.7 ??F)] Heart Rate Heart Rate: 80 Heart Rate: [72-82] Blood Pressure BP: 158/82 BP: (144-178)/(58-82) Respiratory Rate Resp: 18 Resp: [13-18] SpO2 SpO2: 100 % SpO2: [95 %-100 %] Intake/Output Summary (Last 24 hours) at 12/14/2023 1107 Last data filed at 12/14/2023 0844 Gross per 24 hour Intake 405 ml Output 1725 ml Net -1320 ml No dialysis yesterday, 0.5cc/kg/hr UOP Patient Vitals for the past 168 hrs: Weight 12/14/23 0600 127.1 kg (280 lb 3.3 oz) 12/13/23 0749 123.2 kg (271 lb 9.7 oz) 12/12/23 0549 132.2 kg (291 lb 7.2 oz) 12/10/23 1000 132.5 kg (292 lb) Admit wt: 132.45 kg Physical Exam: Gen: in bed NAD, Anasarca, speaking complete sentences, pleasant HEENT: anicteric, EOMI intact CV: RRR, no murmurs/rubs/gallops Resp: Normal work of breathing, difficult to auscultate Abd: normal bowel sounds, soft, non-tender to palpation, no rebound or guarding Ext: 2+ distal pulses, no pedal edema Neuro: CN II-XII grossly intact, moves all extremities spontaneously Psych: cooperative. Skin: pitting edema bilaterally. no rashes, lesions, or ulcerations noted Labs: Recent Labs 12/14/236 12/13/23 0306 12/12/23 0408 WBC 6.19 7.17 9.34 HGB 8.0* 7.9* 8.3* HCT 28.2* 27.1* 29.2* PLATELET 172 150 192 Recent Labs 12/14/2344512/13/23 0306 12/12/23 1607 12/12/23 0738 NA 141 138 139 138 K 4.1 4.3 4.0 5.2* CL 105 102 103 103 CO2 28 26 24 25 BUN 45* 45* -- 60* CREATININE 2.91* 2.99* -- 3.77* GLUCOSE 90 132 -- 135 Recent Labs 12/14/23 0446 12/13/23 0306 12/12/23 1607 12/12/23 0738 12/10/23 2339 12/10/232020 CALCIUM 8.5 8.6 -- 8.8 < > 8.8 MAGNESIUM 0.95 -- 0.79 -- -- 0.96 PHOS 5.4* -- 4.4 -- -- 6.7* < > = values in this interval not displayed. Recent Labs 12/10/23 1410 AST 23 ALT 62* ALKPHOS 107 BILITOT 0.3 BILIDIR <0.2 Other significant labs: Imaging: Results for orders placed or performed during the hospital encounter of 12/10/23 XR Chest One View (Exam End: 2023 1:38 PM) Result Value WORKSTATION ID [id number] Impression Decreased left lower lobe atelectasis. Otherwise stable exam. Thank you for letting us participate in the care of this patient. If you are a health care provider and have any questions regarding this report, please contact the number below. For patients who have questions please contact the health customer care specialist that requested your imaging first. Electronically signed by: WILLY BRAGG MD, [facility] ([phone]), at 2023 5:[address] Chest wo Contrast (Generic) (Exam End: 12/13/2023 5:12 PM) Result Value WORKSTATION ID [id number] Impression 1. Unchanged small left and trace right pleural effusions. 2. Moderate left and mild right lower lobe subsegmental atelectasis. 3. Nonspecific tree-in-bud opacities in the posterior right middle lobe, possible early infectious/inflammatory pulmonary process. 4. Right jugular central venous catheter tip within the right atrium. 5. Soft tissue edema within the midline chest subcutaneous fat and posterior to the sternum, likely postsurgical change following sternotomy. 6. No subcutaneous hematoma. Thank you for letting us participate in the care of this patient. If you are a health care provider and have any questions regarding this report, please contact the number below. For patients who have questions please contact the health customer care specialist that requested your imaging first. Electronically signed by: Minesh Oconnor MD, [facility] ([phone]), at 12/13/2023 5:52 PM Microbiology: Microbiology Results (Last 30 days) No results found for the last 720 hours. Assessment and Plan: Hayden Russo is a 48 y.o. year old male with past medical history of COLLINS (treated with primary PCI in 2019), CKD (baseline Cr ~2.5, previously required renal replacement therapy with CVVH), recent CABG with Dr. Dutta 11/13, DMII admitted on 2023 ( Hospital Day 4 days ) for decompensated HFpEF with marked volume overload, acute hypercarbic respiratory failure, and DONAL on CKD withsevere hyperkalemia. iHD started 12/10 given severe acidosis, hyperkalemia and volume overload. Will continue iHD with adjunctive diuresis as necessary. Oxygen requirements stable at 1L NC. TTE showed mild RV dysfunction(free wall hypokinesis) and normal LVEF (60%) with inferior wall motion abnormalities (consistent with prior TX). Total of 6 L taken off with HD on 12/10 and 12/11. Potassium is significantly improved at 5 compared to >7 on 12/10. Will continue with iHD and monitor BMP, electrolytes and volume status. Given cardiac history, maintain high index of suspicion for ACS during volume iHD volume shifting if experiencing chest pain, tightness, nausea or abdominal pain. Also having pain and restlessness in bilateral lower extremities likely related to edema or to rapid fluid / electrolyte shifts with HD. Low suspicion for DVT given anti-coagulation with eliquis. Mental status re-assuring that hypercarbia is improved. 12/14/23 Bleeding from catheter site now resolved. No hematoma seen on CT scan. Patient remained hemodynamically normal and Hgb levels are stable at 8. BUN and Cr remained stable during inter-dialytic period and patient had good urine output 0.5 cc/kg/hr without diuretics. Patient to go for additional roundof dialysis today, will monitor hemodynamics, electrolytes and volume status. #CHF exacerbation, anasarca #Recent CABG #ASCVD, premature #HTN -Responded to 160mg lasix on admission, receiving iHD since -now getting aggressive volume removal with HD daily -C/w home ASA -C/w home atorvastatin -C/w home Plavix -HOLDING home losartan -TTE completed -Daily weights -Strict I's and O's -Tele monitoring #DONAL on CKD #Cardiorenal syndrome, likely -volume removal with HD -Monitor Cr in inter-dialytic period -adjunctive diuresis as needed -Renally dose medications -Close monitoring of electrolytes -checking SPEP, UPEP, SFLC, C3/C4, UACR, UPCR per Nephro #Hyperkalemia without EKG changes -refractory to multiple round of shift therapy and lokelma -s/p multiple doses calcium gluconate -iHD initiated 12/10 -monitor BMP closely -renal diet -tele # acute hypercarbic respiratory failure -likely due to combination of SWAPNIL, OHS, and acute CHF -improving with volume removal with HD -monitor closely and repeat blood gas if concern for worsening hypercarbia -On 1L NC during the day. 3-4L overnight. Wean oxygen as able # bleeding from TDC site - holding apixaban for now - s/p suture placement 12/13 - manual pressure PRN #A-fib with RVR #DVT -C/w home Amio -holding home Eliquis for now in setting of bleeding from TDC site #DMII -SSI -Diabetic diet # Bilateral leg pain and restless -possibly due to edema but given the restless character of it and the onset after aggressive volumeremoval with HD on 12/10 and 12/11 it seems more likely related to rapid fluid / electrolyte shiftswith HD -iron deficiency could also contribute to the restlessness -avoid opioids and gabapentinoids given hypercarbia and drowsiness -tylenol prn -s/p 1x low dose ropinirole -S/p 1 dose of IV iron -optimize lytes # Hypothyroidism -Continue levothyroxine 25mcg #Routine Diet: Renal diet 2 GM NA; 2 GM K; 60/60/75 CHO counting level 2 DVT Prophylaxis: DOAC Code Status: Attempt Cardiopulmonary Resuscitation - Inpatient Tremaine Landis MD 12/14/2023 PGY-1, Internal Medicine Red Team - Pager [phone] M2 Hospital Medicine Service Attending Documentation I certify that the patient requires: [x] inpatient care status due to DONAL on CKD, refractory hyperkalemia, hypercarbic respiratory failure, and acute on chronic HFpEF. [ ] Observation Care Please see Dr. Landis's note for details of the patient history of presentation and data. I have examined the patient myself and personally reviewed all studies. I have discussed, reviewed and agreewith the documented History, Physical findings, Assessment and Plan of care which I modified to be consistent with the assessment and plan as formulated in discussion with me. LOI ENCINAS MD 12/15/2023 * Michaela Lopez RN - 12/13/2023 6:58 PM EDTSummary: Progress Note OUTCOME EVALUATION NOTE: OUTCOME SUMMARY: Patient oriented X4. Following commands. Stable VS. 2 liters NC. Sats remained >94. Non-febrile.Dialysis cancelled today due to dressing change/bleeding. Patient brought back to unit with continuous bleeding. Dressing reinforced. Sand bag applied. Physician aware. Reached out to physicians again to let them know we are continuously bleeding with 3 dressing changes. Team at bedside/will reach out to IR. Attending at bedside holding pressure. Pressure held for 35 min. Sandbag reapplied for 30min. Change dressing/apply Stat Seal next step. PLAN MOVING FORWARD: Monitor bleeding, Dialysis, pain control, diabetes monitoring, discharge plan. CARE PLAN GOAL OUTCOME EVALUATION: Problem: Adult Inpatient Plan of Care Goal: Plan of Care Review Outcome: Ongoing (Interventions Implemented as Appropriate) Goal: Patient-Specific Goal (Individualized) Outcome: Ongoing (Interventions Implemented as Appropriate) Goal: Absence of Hospital-Acquired Illness or Injury Outcome: Ongoing (Interventions Implemented as Appropriate) Goal: Optimal Comfort and Wellbeing Outcome: Ongoing (Interventions Implemented as Appropriate) Goal: Readiness for Transition of Care Outcome: Ongoing (Interventions Implemented as Appropriate) * Michaela Lopez RN - 12/13/2023 1:13 PM EDTSummary: Progress note 12:30 patient off floor to dialysis. 2 liters nc. Transport. L5 pt. * Tremaine Landis MD - 12/13/2023 8:37 AM EDT [facility] Medicine - Red Team Inpatient Progress Note ID: Hayden Russo is a 48 y.o. year old male with past medical history of STEMI (treated withprimary PCI in 2019), CKD (baseline Cr ~2.5, previously required renal replacement therapy with CVVH), recent CABG with Dr. Dutta 11/13, DMII admitted on 2023 ( Hospital Day 3 days ) for decompensated HFpEF with marked volume overload, acute hypercarbic respiratory failure, and DONAL on CKDwith refractory hyperkalemia. Active Hospital Problems Diagnosis Acute on chronic heart failure with preserved ejection fraction (HFpEF) Acute kidney injury superimposed on chronic kidney disease Hyperkalemia Acute hypercapnic respiratory failure Resolved Hospital Problems No resolved problems to display. Overnight History: -NAEON - Insomnia, had significant discomfort in legs, not pain but describes having chunky sensation. refused melatonin. Benadryl given. - Breathing feels good this morning, no chest pain. - Some mild nausea during dialysis, resolved with zofran Interval History: - Tunneled dialysis catheter placed by IR for initiation of iHD - iHD initiated, 3L taken off 12/10 and additional 3L morning of 12/11. Tolerating hemodynamic shifts well. -Shortness of breath and swelling improved -Stepped down to floor status - Oxygenating well on 1L NC - On admission, 80 mg, 120 lasix given without effect. Additional 160 lasix given at 0637 that leadto ~200-300cc of urine. Additional 120 given at 10AM. K elevated >7 overnight and refractory to shift therapy X3 with 10units insulin + glucose. VBG showing severe respiratory acidosis - EKG remained stable despite hyperkalemia Meds: levothyroxine 25 mcg Oral QAM albuteroL 2.5 mg Nebulization 4 Times Daily AMIOdarone 200 mg Oral Daily apixaban 2.5 mg Oral BID aspirin 81 mg Oral Daily atorvastatin 40 mg Oral QPM citalopram 10 mg Oral Daily clopidogreL 75 mg Oral Daily pantoprazole EC 40 mg Oral Daily sodium chloride 0.9 % (flush) 5 mL Intravenous BID insulin lispro 1-4 Units Subcutaneous TID AC insulin lispro 0-8 Units Subcutaneous TID WC senna-docusate 2 tablet Oral BID PRN medications diphenhydrAMINE, sodium chloride 0.9%, heparin (porcine), sodium chloride 0.9%, acetaminophen, sodium chloride 0.9 % (flush), lidocaine, melatonin, glucose 40% oral geL OR dextrose OR glucagon, polyethylene glycoL (MIRALAX) oral powder AND bisacodyL AND bisacodyL EC AND lactulose AND lactulose AND magnesium citrate AND Tap water enema, ondansetron Current Facility-Administered Medications Medication Dose Route Frequency diphenhydrAMINE (Benadryl) capsule 50 mg 50 mg Oral Nightly PRN sodium chloride 0.9% infusion 100 mL Intravenous Q15 Min PRN heparin (porcine) (1,000 units/mL) injection 1,000-10,000 Units 1,000-10,000 Units Intercatheter Once in dialysis PRN sodium chloride 0.9% infusion 100 mL Intravenous Q15 Min PRN acetaminophen (Tylenol) tablet 975 mg 975 mg Oral Q6H PRN sodium chloride 0.9 % (flush) (BD PosiFlush Normal Saline 0.9) flush 5-20 mL 5- 20 mL Intravenous Q1Min PRN lidocaine (Xylocaine) 1% (10 mg/mL) injection 3 mg 0.3 mL Subcutaneous Once PRN melatonin tablet 3 mg 3 mg Oral Nightly PRN glucose (Glutose) 40% oral geL 15-30 g of glucose Buccal Q15 Min PRN Or dextrose 10% infusion 250 mL Intravenous Q15 Min PRN Or glucagon (Glucagen) (1 mg/mL) injection solution 1 mg 1 mg Intramuscular Q15 Min PRN polyethylene glycoL (Miralax) packet 17 g 17 g Oral Daily PRN And bisacodyL (Dulcolax) suppository 10 mg 10 mg Rectal Daily PRN And bisacodyL EC (Dulcolax) tablet 10 mg 10 mg Oral BID PRN And lactulose (Chronulac) (0.67 gram/mL) oral liquid 20 g 20 g Oral Daily PRN And lactulose (Chronulac) (0.67 gram/mL) oral liquid 20 g 20 g Oral Daily PRN And magnesium citrate oral liquid 296 mL 296 mL Oral Once PRN ondansetron (pf) (Zofran) (2 mg/mL) injection 4 mg 4 mg Intravenous Q8H PRN Physical Exam: Last value Range last 24 hrs Temperature Temp: 36.8 ??C (98.2 ??F) Temp: [36.4 ??C (97.6 ??F)-37.1 ??C (98.8 ??F)] Heart Rate Heart Rate: 85 Heart Rate: [71-86] Blood Pressure BP: 170/73 BP: (125-170)/(64-83) Respiratory Rate Resp: 15 Resp: [8-24] SpO2 SpO2: 96 % SpO2: [89 %-96 %] Intake/Output Summary (Last 24 hours) at 12/13/2023 0837 Last data filed at 12/13/2023 0818 Gross per 24 hour Intake 260 ml Output 4430 ml Net -4170 ml 3L taken off during dialysis yesterday. 0.6cc/kg/hr UOP Patient Vitals for the past 168 hrs: Weight 12/13/23 0749 123.2 kg (271 lb 9.7 oz) 12/12/23 0549 132.2 kg (291 lb 7.2 oz) 12/10/23 1000 132.5 kg (292 lb) Admit wt: 132.45 kg Physical Exam: Gen: in bed NAD, Anasarca, speaking complete sentences, pleasant but still mildly drowsy HEENT: anicteric, EOMI intact CV: RRR, no murmurs/rubs/gallops Resp: Normal work of breathing, difficult to auscultate Abd: normal bowel sounds, soft, non-tender to palpation, no rebound or guarding Ext: 2+ distal pulses, no pedal edema Neuro: CN II-XII grossly intact, moves all extremities spontaneously, +mild asterixis Psych: cooperative. Skin: pitting edema bilaterally. no rashes, lesions, or ulcerations noted Labs: Recent Labs 12/13/23 0306 12/12/23 0408 12/11/23 0413 WBC 7.17 9.34 8.68 HGB 7.9* 8.3* 8.6* HCT 27.1* 29.2* 30.7* PLATELET 150 192 225 Recent Labs 12/13/23 0306 12/12/23 1607 12/12/23 0738 12/12/23 0408 NA 138 139 138 137 K 4.3 4.0 5.2* 5.4* CL 102 103 103 103 CO2 26 24 25 24 BUN 45* -- 60* 60* CREATININE 2.99* -- 3.77* 3.78* GLUCOSE 132 -- 135 141 Recent Labs 12/13/23 0306 12/12/23 1607 12/12/23 0738 12/12/23 0408 12/10/23 2339 12/10/23202012/10/23 1707 12/10/23 1410 CALCIUM 8.6 -- 8.8 8.6 < > 8.8 < > 8.7 MAGNESIUM -- 0.79 -- -- -- 0.96 -- 0.97 PHOS -- 4.4 -- -- -- 6.7* -- 6.4* < > = values in this interval not displayed. Recent Labs 12/10/23 1410 AST 23 ALT 62* ALKPHOS 107 BILITOT 0.3 BILIDIR <0.2 Other significant labs: Imaging: Results for orders placed or performed during the hospital encounter of 12/10/23 XR Chest One View (Exam End: 2023 1:38 PM) Result Value WORKSTATION ID [id number] Impression Decreased left lower lobe atelectasis. Otherwise stable exam. Thank you for letting us participate in the care of this patient. If you are a health care provider and have any questions regarding this report, please contact the number below. For patients who have questions please contact the health customer care specialist that requested your imaging first. Electronically signed by: WILLY BRAGG MD, [facility] ([phone]), at 2023 5:14 PM Microbiology: Microbiology Results (Last 30 days) No results found for the last 720 hours. Assessment and Plan: Hayden Russo is a 48 y.o. year old male with past medical history of COLLINS (treated with primary PCI in 2019), CKD (baseline Cr ~2.5, previously required renal replacement therapy with CVVH), recent CABG with Dr. Dutta 11/13, DMII admitted on 2023 ( Hospital Day 3 days ) for decompensated HFpEF with marked volume overload, acute hypercarbic respiratory failure, and DONAL on CKD withsevere hyperkalemia. 12/13/23 iHD started 12/10 given severe acidosis, hyperkalemia and volume overload. Will continue iHD with adjunctive diuresis as necessary. Oxygen requirements stable at 1L NC. TTE showed mild RV dysfunction(free wall hypokinesis) and normal LVEF (60%) with inferior wall motion abnormalities (consistent with prior TX). Total of 6 L taken off with HD on 12/10 and 12/11. Potassium is significantly improved at 5 compared to >7 on 12/10. Will continue with iHD and monitor BMP, electrolytes and volume status. Given cardiac history, maintain high index of suspicion for ACS during volume iHD volume shifting if experiencing chest pain, tightness, nausea or abdominal pain. Also having pain and restlessness in bilateral lower extremities likely related to edema or to rapid fluid / electrolyte shifts with HD. Low suspicion for DVT given anti-coagulation with eliquis. Mental status re-assuring that hypercarbic respiratory failure is not worsening. Will repeat VBG asneeded. Oxygenating well on 1L NC. #CHF exacerbation, anasarca #Recent CABG #ASCVD, premature #HTN -Responded to 160mg lasix on admission, receiving iHD since -now getting aggressive volume removal with HD daily -C/w home ASA -C/w home atorvastatin -C/w home Plavix -HOLDING home losartan -TTE -Daily weights -Strict I's and O's -Tele monitoring #DONAL on CKD #Cardiorenal syndrome, likely -volume removal with HD -Monitor Cr in inter-dialytic period -adjunctive diuresis as needed -Renally dose medications -Close monitoring of electrolytes -checking SPEP, UPEP, SFLC, C3/C4, UACR, UPCR per Nephro #Hyperkalemia without EKG changes -refractory to multiple round of shift therapy and lokelma -s/p multiple doses calcium gluconate -iHD initiated 12/10 -monitor BMP closely -renal diet -tele # acute hypercarbic respiratory failure -likely due to combination of SWAPNIL, OHS, and acute CHF -volume removal with HD and diuresis as needed -discussed with CCS on 12/10 for possible txfer to ICU for BiPAP - CCS anticipates ongoing improvement with HD, deferring BiPAP for now -monitor closely and repeat blood gas if concern for worsening hypercarbia #A-fib with RVR #DVT -C/w home Amio -C/w home Eliquis #DMII -SSI -Diabetic diet # Bilateral leg pain and restless -possibly due to edema but given the restless character of it and the onset after aggressive volumeremoval with HD on 12/10 and 12/11 it seems more likely related to rapid fluid / electrolyte shiftswith HD -iron deficiency could also contribute to the restlessness -avoid opioids and gabapentinoids given hypercarbia and drowsiness -tylenol prn -s/p 1x low dose ropinirole -S/p 1 dose of IV iron -optimize lytes #Routine Diet: Renal diet 2 GM NA; 2 GM K; 60/60/75 CHO counting level 2 DVT Prophylaxis: DOAC Code Status: Attempt Cardiopulmonary Resuscitation - Inpatient Tremaine Landis MD 12/13/2023 PGY-1, Internal Medicine Red Team - Pager [phone] Tremaine Landis MD 12/13/2023 Associated attestation - Loi Encinas MD - 12/15/2023 12:35 AM EDT M2 Hospital Medicine Service Attending Documentation I certify that the patient requires: [x] inpatient care status due to DONAL on CKD, refractory hyperkalemia, hypercarbic respiratory failure, and acute on chronic HFpEF. [ ] Observation Care Please see Dr. Landis's note for details of the patient history of presentation and data. I have examined the patient myself and personally reviewed all studies. I have discussed, reviewed and agreewith the documented History, Physical findings, Assessment and Plan of care with the following additions: - TDC site continuously bled over the course of the day, stopped apixaban for now (although got it this AM 12/12), and I held manual pressure from 6:25- 7:00pm, no bleeding seen at the end of that, nursing to re-assess after a little time and place StatSeal. - Otherwise plan as outlined below. LOI ENCINAS MD 12/15/2023 * Steve Dotson MD - 12/13/2023 7:06 AM EDT Nephrology Consult Note Hayden Russo [id number] 1975 ID: Ambrocio Russo is a 48 YO M with history of CKD G4/A3 requiring prior CVVH 11/13, recent CABG 11/13, STEMI 2019 s/p PCI to RCA, and T2DM who is admitted from [facility] with hypervolemia, shortness of breath, and likely decompensated heart failure. Nephrology is consulted for DONAL and hyperkalemia Interval events & Subjective: -HD tolerated very well yesterday. -seen in HD unit today prior to his run feeling well but bleeding cath site so we aborted. He felt well, however. Physical Examination: Last value 24 Hour Temperature Range Temp: [36.4 ??C (97.5 ??F)-36.8 ??C (98.2 ??F)] 12 Hour Heart Rate Range Heart Rate: [71-84] 24 Hour Blood Pressure Range BP: (135-203)/(55-155) Respiratory Rate Resp: 14 SpO2 SpO2: 96 % Body mass index is 41.82 kg/m??. General: No acute distress, comfortable. Obese habitus HEENT: Eyes anicteric and not injected. No oropharyngeal lesions. Cardiac: Normal rate, and regular rhythm. S1S2 appreciated. Large central midline scar. R TDC site with active bleed at cutaneous site. Chest: Good effort and aeration. Has some crackles.no longer laboring Abdomen: BS present. Soft, nontender, non-distended. Extremities: Warm, well perfused. Has edema bilaterally. Skin: No abnormalities noted. Skin turgor expected for age. Neurologic: No asterixis. Alert and oriented x 4. Follows all requests. albuteroL 2.5 mg Nebulization 4 Times Daily AMIOdarone 200 mg Oral Daily apixaban 2.5 mg Oral BID aspirin 81 mg Oral Daily atorvastatin 40 mg Oral QPM citalopram 10 mg Oral Daily clopidogreL 75 mg Oral Daily pantoprazole EC 40 mg Oral Daily sodium chloride 0.9 % (flush) 5 mL Intravenous BID insulin lispro 1-4 Units Subcutaneous TID AC insulin lispro 0-8 Units Subcutaneous TID WC senna-docusate 2 tablet Oral BID Lab Results Component Value Date CREATININE 3.78 (H) 12/12/2023 CREATININE 3.78 (H) 12/12/2023 CREATININE 3.63 (H) 12/11/2023 CREATININE 4.58 (H) 12/11/2023 CREATININE 4.37 (H) 12/11/2023 CREATININE 2.83 (H) 09/22/2023 CREATININE 2.39 (H) 08/04/2023 CREATININE 2.49 (H) 06/07/2023 CREATININE 2.57 (H) 06/06/2023 CREATININE 2.16 (H) 06/05/2023 ESTGFR 27 (L) 09/22/2023 ESTGFR 33 (L) 08/04/2023 ESTGFR 32 (L) 06/07/2023 ESTGFR 30 (L) 06/06/2023 ESTGFR 38 (L) 06/05/2023 NA 137 12/12/2023 NA 136 12/12/2023 NA 135 12/11/2023 NA 138 09/22/2023 NA 137 08/04/2023 NA 136 06/07/2023 K 5.4 (H) 12/12/2023 K 5.4 (H) 12/12/2023 K 5.4 (H) 12/11/2023 K 4.9 09/22/2023 K 4.6 08/04/2023 K 4.7 06/07/2023 CO2 24 12/12/2023 CO2 24 12/12/2023 CO2 21 (L) 12/11/2023 CO2 22 09/22/2023 CO2 23 08/04/2023 CO2 21 (L) 06/07/2023 Lab Results Component Value Date CALCIUM 8.6 12/12/2023 CALCIUM 8.7 12/12/2023 CALCIUM 8.7 12/11/2023 CALCIUM 9.3 09/22/2023 CALCIUM 9.2 08/04/2023 CALCIUM 8.8 06/07/2023 PHOS 6.7 (H) 2023 PHOS 6.4 (H) 2023 PHOS 3.3 11/27/2023 PHOS 3.4 10/12/2018 PTH 63 11/27/2023 PTH 239 (H) 11/04/2023 25OHVITD 13 (L) 11/27/2023 25OHVITD 9 (L) 11/04/2023 FREET4 0.85 (L) 2023 TSH 10.70 (H) 2023 TSH 3.68 06/04/2023 URICACID 12.8 (H) 11/04/2023 Lab Results Component Value Date HGB 8.3 (L) 12/12/2023 HGB 8.6 (L) 12/11/2023 HGB 8.0 (L) 2023 HGB 12.4 (L) 09/22/2023 HGB 12.0 (L) 08/04/2023 HGB 9.7 (L) 06/07/2023 FERRITIN 209 11/27/2023 FERRITIN 555 (H) 11/15/2023 FERRITIN 835 (H) 11/04/2023 IRONSAT 13 (L) 11/27/2023 IRONSAT 11 (L) 11/15/2023 IRONSAT 10 (L) 11/04/2023 IRONSAT 16 (L) 10/14/2018 Lab Results Component Value Date UMICALBCALC 1,478 (H) 11/27/2023 UMICALBCALC 591 (H) 11/04/2023 UPROTCREAT 2.5 11/27/2023 UPROTCREAT 1.2 11/04/2023 ALBUMIN 3.4 2023 ALBUMIN 3.5 11/27/2023 ALBUMIN 2.7 (L) 11/11/2023 ALBUMIN 3.8 09/22/2023 ALBUMIN 3.8 10/12/2018 Assessment & Plan: Ambrocio Russo is a 48 YO M with 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 Nephrology is consulted for DONAL and hyperkalemia # Non-oliguric DONAL on CKD g4/A3 CKD G4/A3: Likely secondary to underlying diabetes (A1c since 2018 9.5-13.9) as well as many DONAL most notably post-CABG 10/2023 needing CVVH DONAL: Likely secondary to decompensated HF with intravascular hypervolemia with resultant cardiorenal like physiology and some post-renal obstruction. -Baseline sCr: Likely closer to about 3.2, admit 4.0-->4.38. -Urinary studies: None here. Last UACR 1478 11/27/23. -I/Os: urinating well -Serologies: C3, C4 normal 12/10. Paraprotein pending -Imaging: TTE 12/10 LVEF 60%, some inferior WMA, RV dilation Recommendations: -HD tomorrow 3 hours, 300 BFR, no heparin -Access: TDC placed 12/10 -3 hours, 300 BFR, goal 3L off. -if ongoing bleeding suggest IR involvement still. -maintain todd -Please avoid NSAIDs, IV contrast, nephrotoxins -Keep MAP >65 as able to -Renally dose medications as appropriate # Blood pressure and Hemodynamics Acceptable for now # Electrolytes Hyperkalemia is a long issue for him, on ARB at home, with advanced CKD and frequent cardiac manifestations and DONAL. -Treatment as above -can Continue lokelma # Acid/Base His VBG is 7.11/69/42/21, corrected for venous is about 7.16, PC2 61-63. Overall consistent with primarily a respiratory acidosis, though is certainly mixed. There is no anion gap. -NaHCO3 is OK for now # Anemia Hgb here is 8.0-8.6 range. Recent iron studies low -venofer on 12/11, planned 12/13. # Mineral and Bone Has vitamin D deficiency, 13 on 11/27/23. PTH is 63. Phos is high. Calcium is normal. SUMMARY OF RECOMMENDATIONS -HD tomorrow w/ venofer This case was staffed with Dr. Deluna Thank you for involving us in the care of this patient. Nephrology will continue to follow. Please contact me at phone: [phone] or pager: [phone] with any questions. Steve Dotson MD Nephrology & Hypertension Fellow * Christy Yepez, OT - 12/12/2023 4:15 PM EDT Occupational Therapy Evaluation Patient profile: Hayden Russo is a 48 y.o. male admitted on 2023 with past medical history of STEMI (treated with primary PCI in 2019), CKD (baseline Cr ~2.5, previously required renal replacement therapy with CVVH), recent CABG with Dr. Dutta 11/13, DMII admitted on 2023 ( Hospital Day 2 days ) for HF exacerbation. Past Medical History: Diagnosis Date Coronary artery disease Diabetes Hypertension Past Surgical History: Procedure Laterality Date CORONARY ANGIOPLASTY WITH STENT PLACEMENT HERNIA REPAIR IR DIALYSIS ACCESS - TUNNELED LINE 12/11/2023 IR Dialysis Access - Tunneled Line 12/11/2023 Federico Farley, DO [facility] INTERVENTIONL RAD PRG CATH PLMT LEFT HEART CATH & ARTS W/INJ & ANGIO IMG S&I N/A 08/04/2023 CORONARY ANGIOGRAPHY; W LHC,POSSIBLE PCI (WRVU 5.6) performed by Azul Rowley MD at [facility] CATHLABS PRO CABG, ARTERIAL, SINGLE N/A 10/30/2023 @CABG, USING ARTERIAL GRAFT;SINGLE ARTERIAL GRAFT (WRVU 33.75) performed by Timi Dutta MD at [facility] MAIN OR PRO CABG, ARTERY-VEIN, TWO N/A 10/30/2023 @CABG, TWO VENOUS GRAFTS & ARTERIAL GRAFT (WRVU 7.93) performed by Timi Dutta MD at [facility] MAIN OR PRO ENDOSCOPY W/VIDEO-ASST VEIN HARVEST, CABG N/A 10/30/2023 ENDOSCOPIC HARVEST VEIN(S) FOR CABG (WRVU 0.31) performed by Timi Dutta MD at [facility] MAIN OR Social History: Patient lives with his in an 2nd floor apt. She works during the day outside the home Home Setup: 14 RENATE with B railings. Once inside, single floor. Tub shower, with chair available. Regular bed, but also has a recliner DME: RW, cane, shower chair Baseline ADL/Mobility: Typically independent with all ADL/IADL tasks. Drives. Works. Since his CABGin Oct, has been receiving home therapy, but reports he has progressed to an independent level with ADLs and mobility w/o a RW. Has not yet returned to work. Precautions/Special Considerations: Fall; Supplemental 02; HD; Todd Subjective: When I was in the ICU, I had to learn to walk again. I can't believe I am doing this all over Objective: Seen today for OT evaluation. Cognitive Status/Behavior: Behavior / Mood: Fatigued, but motivated to participate; Pleasant Alert and oriented to: person, place, month, year, and situation Follows commands: multi step and 75% of the time Attention: WFL Safety awareness: WFL Vision & Perception: States he has glasses, but does not need hand ii thermal cutter. Tends to wear them for work. 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 Range of motion, strength, coordination: Hand dominance: right Bilateral UE strength 4+/5 with MMT Decreased finger dexterity Sensation: Notes numbness to B hands and feet Activities of Daily Living: Self-feeding: Supervision Grooming: Able to complete oral care with supervision and increased time (decreased dexterity noted), seated upright in bed Dressing: Dependent to don/doff socks Bathing: Washed face with supervision, seated EOB; LB Max A Toileting: Transfer: N/A; Todd in place Hygiene: N/A Functional Mobility: Supine to sit: Mod A x 2 to L side of the bed with HOB about 30 degrees Sit to stand: Completed twice with Min A x 2, up to a RW Ambulation: 3-4 lateral steps toward the HOB with Min A x 2, use of a RW. Increased time Stand to sit: Min A x 2 Sit to supine: Mod A x 2 Balance: Sitting balance: Fair; fluctuated between CGA to Mod A; Dizziness noted Standing balance: Poor; requires support of a RW Vitals: Supine: BP 145/75; HR 82; Sp02 93% on 1L EOB: BP 128/71; HR 82; Sp02 87-93% on 1L. Fluctuating reports of dizziness. Slight nausea Post session: 136/65; HR 76; Sp02 95% on 1L 02 Pain: 9/10 back pain at rest; Improved with movement Education: family and patient have been educated on Role of occupational therapy/rehabilitation, Transfers, Assistive device/technique, ADL, Positioning, Safety, Functional Mobility, Balance, Recommendations, Family training, and Discharge planning and verbalizes understanding. Patient status, treatment, and mobility recommendations discussed with nursing. Assessment: Pt has been seen for occupational therapy evaluation. Hayden Russo presents withthe following performance skill deficits and client factors: increased pain, decreased activity tolerance, decreased flexibility/ROM, decreased strength, decreased sitting/standing balance, hemodynamic instability, body habitus, sensory deficits, communication deficits (deaf in L ear), decreased postural control, deconditioning, compromised mobility status, and coping. These performance deficits have led to activity limitations and participation restrictions in the following areas of occupation: dressing, bathing, grooming, toileting, transfers/mobility, home management, work, leisure participation, driving, community mobility, and symptom and condition management . Patient fatigued, but motivated to participate upon OT arrival. Family present and engaged in his care. He demonstrated the ability to sit EOB, complete light ADL tasks, 2 sit to stands and take a few lateral steps toward the HOB. Limited by nausea, dizziness and weakness. He is s/p a CABG 10/30/23 and was d/c to home. He states at home, he achieved an independent level in regards to ADLs and mobility, but had not yet started driving or returned back to work. He lives with his who an assist. Based on today's session, he will require a rehab stay, but he is highly motivated and may progress to home based on progress and the length of his hospital stay. Pt would benefit from further inpatient OT interventions to address performance deficits and maximize participation and independence with occupations of daily living. Equipment Needs Upon Discharge (OT): to be determined Anticipated Discharge Disposition (OT): acute rehabilitation facility Activity Recommendations: Promote normalcy by encouraging participation in common daily tasks & leisure activities by providing set up assist Give choices when possible to support feelings of autonomy Frequent orientation verbally & visually Keep glasses, hearing aides, cell phones, tablets, etc within reach Facilitate a normal sleep-wake cycle Provide brief, clear instruction from one source at a time Provide calming music, favorite TV programs, magazines or newspapers Utilize upright chair position using bed features or transfer to recliner chair as appropriate with2 assist, stand pivot with support of a RW Goals: To be achieved by 12/26/23: Patient will don/doff UB/LB clothing independently, seated, with AE, as needed Patient will complete toileting tasks (hygiene, clothing management, transfers) independently with AE, as needed Patient will ambulate household distances independently with AD, as needed Patient will complete UB/LB sponge bathing tasks independently, while seated with AE, as needed Patient will complete grooming task (comb hair, brush teeth, shave) independently, standing at the sink Patient will complete a light meal preparation task independently at an ambulatory level Plan: OT: Therapy Frequency (OT): 2-4 times/wk Planned OT interventions: Role of occupational therapy/rehabilitation, Transfers, Assistive device/technique, Adaptive equipment training, ADL, Exercise, Breathing exercises, Positioning, Safety, Functional Mobility, Activity pacing/Energy conservation, Home Management, Balance, Recommendations, Family training, and Discharge planning. Total Minutes, Occupational Therapy: 52 OT Evaluation Code Rationale: Diagnosis & Pertinent Co-Morbidities affecting Plan of Care: see PMHx Occupational Profile & Client History: Brief Expanded Extensive x Assessment of Occupational Performance: 1-3 performance deficits 3-5 performance deficits 5 + performance deficits x Clinical Decision Making: Low Moderate High x Clinical decision making of moderate complexity using standardized patient assessment instrument and measurable assessment of functional outcome. Pager: [phone] Christy Yepez OTR/L Occupational Therapy Rehabilitation Department * Anne Marie Win, PT - 12/12/2023 3:05 PM EDT Physical Therapy Evaluation Patient profile: Hayden Russo is a 48 y.o. male admitted on [address] Loi Encinas MD transferred from [facility] with worsening anasarca associated with SOB. At OSH chest x-ray showed cardiomegaly with left pleural effusion. At [facility] he got 80 mg of IV Lasix and on EKG there were no changes from baseline. Recently underwent CABG(10/30/23 [place]> LAD, SVG> OM2, SVG> PDA)) which was complicated by DONAL requiring CVVH. Since discharge he has followed with Nephrology. #Hyperkalemia in the setting of renal failure He had worsening volume overload despite home torsemide 40mg. 12/10-IR for placement of tunneled hemodialysis catheter to initiate intermittent dialysis. 12/10 iHD initiated, 3L taken off & another iHD run today 12/11 Patient with the following active problems: Past Medical History: Diagnosis Date Coronary artery disease Diabetes Hypertension Past Surgical History: Procedure Laterality Date CORONARY ANGIOPLASTY WITH STENT PLACEMENT HERNIA REPAIR IR DIALYSIS ACCESS - TUNNELED LINE 12/11/2023 IR Dialysis Access - Tunneled Line 12/11/2023 Federico Farley, DO [facility] INTERVENTIONL RAD PRG CATH PLMT LEFT HEART CATH & ARTS W/INJ & ANGIO IMG S&I N/A 08/04/2023 CORONARY ANGIOGRAPHY; W LHC,POSSIBLE PCI (WRVU 5.6) performed by Azul Rowley MD at [facility] CATHLABS PRO CABG, ARTERIAL, SINGLE N/A 10/30/2023 @CABG, USING ARTERIAL GRAFT;SINGLE ARTERIAL GRAFT (WRVU 33.75) performed by Timi Dutta MD at [facility] MAIN OR PRO CABG, ARTERY-VEIN, TWO N/A 10/30/2023 @CABG, TWO VENOUS GRAFTS & ARTERIAL GRAFT (WRVU 7.93) performed by Timi Dutta MD at [facility] MAIN OR PRO ENDOSCOPY W/VIDEO-ASST VEIN HARVEST, CABG N/A 10/30/2023 ENDOSCOPIC HARVEST VEIN(S) FOR CABG (WRVU 0.31) performed by Timi Dutta MD at [facility] MAIN OR Social History: Lives with in [place], [place] in a 2nd floor apartment. 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 Home set-up: Inside apartment one level. Bathroom Set-up: tub shower but has shower chair available. Stairs: flight to get to apart Baseline Mobility: Typically independent driving & working up until Oct when he had CABG (10/30/23) & has had home PT and walking 20 min's outdoors, climbing stairs and was hoping to return towork soon until this admission. Equipment at home: Has walker, cane, tub shower with seat, has recliner. Fall history: denies Precautions/Special Considerations: Up with assistance; Fall risk/weak today, Todd catheter, R chest tunneled hemodialysis catheter: Oliguria. Renal diet 2 gm Na, 2 Gm of K, carb counting 60/60/75 Patient Lines/Drains/Airways Status Active Tubes/Lines/Drains Name Placement date Placement time Site Days Tunneled Central Line 12/11/23 1545 Double Lumen length (specify) internal jugular vein, right 12/11/23 1545 -- 1 PIV 12/10/23 1600 20 gauge cephalic vein (lateral side of arm), right 12/10/23 1600 -- 2 Urethral Catheter 12/11/23 0600 12/11/23 0600 -- 1 Active Orders Diet Renal diet 2 GM NA; 2 GM K; 60/60/75 CHO counting level 2 Frequency: Effective Now Number of Occurrences: Until Specified Mobility and Positioning Recommendations: Pt. should utilize walker and 2 staff assist for sit >stand @ bedside. Encourage to sit upright in bed (bed-chair) Please encourage up to chair for meal times as able. Subjective: ???I want to move so badly?? 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 Objective: Pt seen for evaluation today. Pain: back pain from this bed; 10/30 Cardiopulmonary: HR: 82 bpm SpO2: 94 % 1 L O2 nc BP: 148/69(93) mmHg supine BP: 136/65 (87) sitting Mental Status: alert, oriented to person, place, and time Vision: aided with glasses Skin: R chest wall with tunneled HD cath Musculoskeletal: (R) hand dominant ROM: Able to move all limbs Strength: feeling weak although when strength testing can hold resistance. Seated EOB leaning backwards; challenge to maintain postural control unsupported EOB. Stood with walker and 2 assist and shuffled feet along side of bed, fatigued quickly & sat on EOB. Sensation: numbness hands & feet Bed Mobility: Supine > Sit: moderate assist with cues to roll. Sit to Supine: moderate assist with cues to reach to rail, lean to elbow, lift one leg @ time-needed help to lift legs into bed. Transfers: Sit > Stand: minimum assist, of 2 persons with rolling walker with bed height raised. Stand to Sit: minimum assist Bed to Chair: too fatigued to take more steps to chair; instead got back to bed and put bed in chair mode. Gait: 3-4 shuffle steps along bed with walker and Mod A x 2. Easily fatigues. Stairs: N/E Balance: Sitting: FAIR- leaning back, assistance throughout but he could hold with use of Ue's for help briefly. Standing / Gait: POOR- walker and 2 assist. Education/Exercise: patient has been educated on Safety , Role of therapy, and Discharge planning. He states he was having home therapy and making good gains post CABG. Pt was left in bed-chair sitting position with call tenorio within reach and bed alarm in place, @ bedside, his mother in room visiting. Patient status, treatment, and mobility recommendations havebeen discussed with RN. Assessment: Pt was seen today for physical therapy evaluation. Pt presents with heart failure, Hyperkalemia in the setting of renal failure and requiring dialysis and lasix to manage fluid volume. His deficits in AROM / flexibility, Strength , balance, postural control, skin integrity, activity tolerance, and back pain, dec sensation distally are currently impact his ability to safely and independently perform functional mobility tasks including bed mobility, transfers, ambulation, stair negotiation, and daily activities. Today wanted to get OOB as his back was extremely painful so sitting onEOB helped his pain although he had difficulty maintaining posture/balance and standing he was feeli ng very weak and not feeling ready for steps to a chair so used bed-chair position to finalize session. He had CABG 10/30/23 so was having home therapy and making gains walking outside for 20 min and climbing stairs and was hoping to return to work soon until this admission. He will benefit from skilled therapy services while in the hospital to maximize functional abilities. Inpatient Physical Therapy Plan: 2-4 times/wk for balance training, bed mobility training, gait training, home exercise program, patient/family education, range of motion, stair training, strengthening, transfer training, and DC planning . Patient & understand and agree with plan. Discharge Recommendations: swing bed rehabilitation facility (Swing vs Home w/ Home services based on progression) Consult Recommendations: No other consults recommended at this time. Equipment needs: None (Has cane walker & tub shower chair@ home) Goals: To be achieved by 12-22-23: Pt. to demonstrate knowledge of safety precautions by appropriately requesting assistance to mobilize. Pt. to demonstrate understanding of appropriate exercises to help strengthen in which he can perform in bed or chair. Pt. to perform bed mobility independently. Pt. to perform sit><stand transfers independently using a front wheeled walker. Patient step transfer bed >< chair with walker and supervision x 1. Pt. to ambulate at least 100 feet with modified independence and with supervision using a a front wheeled walker. Pt. to ambulate up/down flight of stairs using one rail with modified independence and with supervision to enter/exit apartment. Pt will tolerate activity progression with stable pain level & vital signs. Thank you for this consult. ANNE MARIE WIN, PT Pager: [phone] Physical Therapy Inpatient Rehabilitation Department Time IN / OUT: 13:13-15:05 Total Minutes, Physical Therapy: 52 (EV) minutes 2017 PT Evaluation Code Rationale: Diagnosis & Pertinent Co-Morbidities, personal factors, and present illness affecting Plan of Care: (see above); Additional personal factors or co- morbidities that impact plan: Total # of Factors: 0 1-2 3+ x Examination of body system impairments, functional limitations and behaviors, and/or participation restrictions. Addressing 1-2 elements Addressing 3 + elements Addressing 4 + elements x Clinical presentation: See assessment above. Stable/Uncomplicated Evolving/Fluctuating Symptoms Unstable/Unpredictable x Clinical decision making of high complexity based on pt's functional performance as outlined in this evaluation. * Jacqui Feliciano, RN - 12/12/2023 1:15 PM EDT Paged EKG team for routine EKG ordered by , our machine is down * Ariel Deluna MD - 12/12/2023 9:27 AM EDT Patient is seen and examined on acute hemodialysis. This is his second run today. He is tolerating the treatment without problems. Will plan another dialysis treatment tomorrow. * Loi Encinas MD - 12/12/2023 9:09 AM EDT [facility] Medicine - Red Team Inpatient Progress Note ID: Hayden Russo is a 48 y.o. year old male with past medical history of STEMI (treated withprimary PCI in 2019), CKD (baseline Cr ~2.5, previously required renal replacement therapy with CVVH), recent CABG with Dr. Dutta 11/13, DMII admitted on 2023 ( Hospital Day 2 days ) for decompensated HFpEF with marked volume overload, acute hypercarbic respiratory failure, and DONAL on CKDwith refractory hyperkalemia. Active Hospital Problems Diagnosis Acute on chronic heart failure with preserved ejection fraction (HFpEF) Acute kidney injury superimposed on chronic kidney disease Hyperkalemia Acute hypercapnic respiratory failure Resolved Hospital Problems No resolved problems to display. Overnight History: -NAEON Interval History: - iHD initiated, 3L taken off yesterday. Good UOP after lasix, 0.9cc/kg/hr - Tolerated hemodynamic shifts well, remains on 2L NC -Subjectively short of breath but oxygenating well. Feels less swollen - Patient evaluated by critical care fellow who determined patient was safe to remain on the medical floor - Oxygenating well on 1L NC - Continuing diuresis - 80 mg, 120 lasix given without effect. Additional 160 lasix given at 0637 that lead to ~200-300ccof urine. Additional 120 given at 10AM. - K elevated >7 overnight and refractory to shift therapy X3 with 10units insulin + glucose. - VBG showing severe respiratory acidosis - Tunneled dialysis catheter placed by IR for initiation of iHD - EKG remained stable despite hyperkalemia Meds: albuteroL 2.5 mg Nebulization 4 Times Daily AMIOdarone 200 mg Oral Daily apixaban 2.5 mg Oral BID aspirin 81 mg Oral Daily atorvastatin 40 mg Oral QPM citalopram 10 mg Oral Daily clopidogreL 75 mg Oral Daily pantoprazole EC 40 mg Oral Daily sodium chloride 0.9 % (flush) 5 mL Intravenous BID insulin lispro 1-4 Units Subcutaneous TID AC insulin lispro 0-8 Units Subcutaneous TID WC senna-docusate 2 tablet Oral BID PRN medications heparin (porcine), sodium chloride 0.9%, heparin (porcine), sodium chloride 0.9%, acetaminophen, sodium chloride 0.9 % (flush), lidocaine, melatonin, glucose 40% oral geL OR dextrose OR glucagon, polyethylene glycoL (MIRALAX) oral powder AND bisacodyL AND bisacodyL EC AND lactulose AND lactulose AND magnesium citrate AND Tap water enema, ondansetron Current Facility-Administered Medications Medication Dose Route Frequency heparin (porcine) (1,000 units/mL) injection 1,000-10,000 Units 1,000-10,000 Units Intercatheter Once in dialysis PRN sodium chloride 0.9% infusion 100 mL Intravenous Q15 Min PRN heparin (porcine) (1,000 units/mL) injection 1,000-10,000 Units 1,000-10,000 Units Intercatheter Once in dialysis PRN sodium chloride 0.9% infusion 100 mL Intravenous Q15 Min PRN acetaminophen (Tylenol) tablet 975 mg 975 mg Oral Q6H PRN sodium chloride 0.9 % (flush) (BD PosiFlush Normal Saline 0.9) flush 5-20 mL 5- 20 mL Intravenous Q1Min PRN lidocaine (Xylocaine) 1% (10 mg/mL) injection 3 mg 0.3 mL Subcutaneous Once PRN melatonin tablet 3 mg 3 mg Oral Nightly PRN glucose (Glutose) 40% oral geL 15-30 g of glucose Buccal Q15 Min PRN Or dextrose 10% infusion 250 mL Intravenous Q15 Min PRN Or glucagon (Glucagen) (1 mg/mL) injection solution 1 mg 1 mg Intramuscular Q15 Min PRN polyethylene glycoL (Miralax) packet 17 g 17 g Oral Daily PRN And bisacodyL (Dulcolax) suppository 10 mg 10 mg Rectal Daily PRN And bisacodyL EC (Dulcolax) tablet 10 mg 10 mg Oral BID PRN And lactulose (Chronulac) (0.67 gram/mL) oral liquid 20 g 20 g Oral Daily PRN And lactulose (Chronulac) (0.67 gram/mL) oral liquid 20 g 20 g Oral Daily PRN And magnesium citrate oral liquid 296 mL 296 mL Oral Once PRN ondansetron (pf) (Zofran) (2 mg/mL) injection 4 mg 4 mg Intravenous Q8H PRN Physical Exam: Last value Range last 24 hrs Temperature Temp: 36.4 ??C (97.5 ??F) Temp: [36.4 ??C (97.5 ??F)-36.8 ??C (98.2 ??F)] Heart Rate Heart Rate: 84 Heart Rate: [55-84] Blood Pressure BP: 164/76 BP: (135-203)/(55-155) Respiratory Rate Resp: 14 Resp: [10-19] SpO2 SpO2: 96 % SpO2: [76 %-100 %] Intake/Output Summary (Last 24 hours) at 12/12/2023 0909 Last data filed at 12/12/2023 0828 Gross per 24 hour Intake 200 ml Output 5825 ml Net -5625 ml Patient Vitals for the past 168 hrs: Weight 12/12/23 0549 132.2 kg (291 lb 7.2 oz) 12/10/23 1000 132.5 kg (292 lb) Admit wt: 132.45 kg Physical Exam: Gen: in bed NAD, Anasarca, speaking complete sentences, pleasant but still mildly drowsy HEENT: anicteric, EOMI intact CV: RRR, no murmurs/rubs/gallops Resp: Normal work of breathing, difficult to auscultate Abd: normal bowel sounds, soft, non-tender to palpation, no rebound or guarding Ext: 2+ distal pulses, no pedal edema Neuro: CN II-XII grossly intact, moves all extremities spontaneously, +mild asterixis Psych: cooperative. Skin: pitting edema bilaterally. no rashes, lesions, or ulcerations noted Labs: Recent Labs 12/12/23 0408 12/11/23 0413 12/10/23 1410 WBC 9.34 8.68 6.15 HGB 8.3* 8.6* 8.0* HCT 29.2* 30.7* 27.8* PLATELET 192 225 220 Recent Labs 12/12/23 0738 12/12/23 0408 12/12/23 0004 NA 138 137 136 K 5.2* 5.4* 5.4* CL 103 103 102 CO2 BUN 60* 60* 62* CREATININE 3.77* 3.78* 3.78* GLUCOSE 135 141 157 Recent Labs 12/12/23 0738 12/12/23 0408 12/12/23 0004 12/10/23 2339 12/10/23202012/10/23 1707 12/10/23 1410 CALCIUM 8.8 8.6 8.7 < > 8.8 < > 8.7 MAGNESIUM -- -- -- -- 0.96 -- 0.97 PHOS -- -- -- -- 6.7* -- 6.4* < > = values in this interval not displayed. Recent Labs 12/10/23 1410 AST 23 ALT 62* ALKPHOS 107 BILITOT 0.3 BILIDIR <0.2 Other significant labs: Imaging: Results for orders placed or performed during the hospital encounter of 12/10/23 XR Chest One View (Exam End: 2023 1:38 PM) Result Value WORKSTATION ID [id number] Impression Decreased left lower lobe atelectasis. Otherwise stable exam. Thank you for letting us participate in the care of this patient. If you are a health care provider and have any questions regarding this report, please contact the number below. For patients who have questions please contact the health customer care specialist that requested your imaging first. Electronically signed by: WILLY BRAGG MD, [facility] ([phone]), at 2023 5:14 PM Microbiology: Microbiology Results (Last 30 days) No results found for the last 720 hours. Assessment and Plan: Hayden Russo is a 48 y.o. year old male with past medical history of COLLINS (treated with primary PCI in 2019), CKD (baseline Cr ~2.5, previously required renal replacement therapy with CVVH), recent CABG with Dr. Dutta 11/13, DMII admitted on 2023 ( Hospital Day 2 days ) for decompensated HFpEF with marked volume overload, acute hypercarbic respiratory failure, and DONAL on CKD withsevere hyperkalemia. 12/12/23 iHD started 12/10 given severe acidosis, hyperkalemia and volume overload. Will continue iHD with adjunctive diuresis as necessary. Oxygen requirements stable at 1L NC. TTE showed mild RV dysfunction(free wall hypokinesis) and normal LVEF (60%) with inferior wall motion abnormalities (consistent with prior TX). Total of 6 L taken off with HD on 12/10 and 12/11. Potassium is significantly improved at 5 compared to >7 on 12/10. Will continue with iHD and monitor BMP, electrolytes and volume status. Given cardiac history, maintain high index of suspicion for ACS during volume iHD volume shifting if experiencing chest pain, tightness, nausea or abdominal pain. Also having pain and restlessness in bilateral lower extremities likely related to edema or to rapid fluid / electrolyte shifts with HD. Low suspicion for DVT given anti-coagulation with eliquis. #CHF exacerbation, anasarca #Recent CABG #ASCVD, premature #HTN -Responded to 160mg lasix -repeat 160mg iv lasix as needed -now getting aggressive volume removal with HD -C/w home ASA -C/w home atorvastatin -C/w home Plavix -HOLDING home losartan -TTE -Daily weights -Strict I's and O's -Tele monitoring #DONAL on CKD #Cardiorenal syndrome, likely -volume removal with HD -adjunctive diuresis as needed -Renally dose medications -Close monitoring of electrolytes -checking SPEP, UPEP, SFLC, C3/C4, UACR, UPCR per Nephro #Hyperkalemia without EKG changes -refractory to multiple round of shift therapy and lokelma -s/p multiple doses calcium gluconate -iHD initiated 12/10 -monitor BMP closely -renal diet -tele # acute hypercarbic respiratory failure -likely due to combination of SWAPNIL, OHS, and acute CHF -volume removal with HD and diuresis as needed -discussed with CCS on 12/10 for possible txfer to ICU for BiPAP - CCS anticipates ongoing improvement with HD, deferring BiPAP for now -monitor closely and repeat blood gas if concern for worsening hypercarbia #A-fib with RVR #DVT -C/w home Amio -C/w home Eliquis #DMII -SSI -Diabetic diet # Bilateral leg pain and restless -possibly due to edema but given the restless character of it and the onset after aggressive volumeremoval with HD on 12/10 and 12/11 it seems more likely related to rapid fluid / electrolyte shiftswith HD -iron deficiency could also contribute to the restlessness -avoid opioids and gabapentinoids given hypercarbia and drowsiness -tylenol prn -trial low-dose ropinirole x 1 -treat iron deficiency with a dose of IV iron -optimize lytes -consider holding off on further HD or diuresis tomorrow 12/12 #Routine Diet: Renal diet 2 GM NA; 2 GM K; 60/60/75 CHO counting level 2 DVT Prophylaxis: DOAC Code Status: Attempt Cardiopulmonary Resuscitation - Inpatient Tremaine Landis MD 12/12/2023 PGY-1, Internal Medicine Red Team - Pager [phone] Hospital Medicine Service Attending Documentation I certify that the patient requires: [x] inpatient care status due to DONAL on CKD, refractory hyperkalemia, hypercarbic respiratory failure, and acute on chronic HFpEF. [ ] Observation Care Please see Dr. Landis's note for details of the patient history of presentation and data. I have examined the patient myself and personally reviewed all studies. I have discussed, reviewed and agreewith the documented History, Physical findings, Assessment and Plan of care which I modified to be consistent with the assessment and plan as formulated in discussion with me. LOI ENCINAS MD 12/12/2023 * Haydee Castaneda PA - 12/12/2023 7:34 AM EDT Images from the original note were not included. Interventional Radiology Inpatient Progress Note Admitted 2023 Procedure(s): Tunneled HD CVC placement Post-procedure day: #1 24 Hour Events: No acute events overnight. Last Value 24 Hour Range Temperature 36.4 ??C (97.5 ??F) Temp: [36.4 ??C (97.5 ??F)-36.8 ??C (98.2 ??F)] Heart Rate 84 Heart Rate: [55-84] Blood Pressure 164/76 BP: (135-203)/(55-155) Respiratory Rate 14 Resp: [10-20] SpO2 96 % SpO2: [76 %-100 %] Labs: Reviewed-- Recent Labs 12/12/23 0408 12/11/23 0413 12/10/23 1410 WBC 9.34 8.68 6.15 HGB 8.3* 8.6* 8.0* HCT 29.2* 30.7* 27.8* PLATELET 192 225 220 Imagin12/11/23 Assessment: 48 y.o. male with PMH of CKD and CHF currently admitted with acute CHF and DONAL on CKD with hyperkalemia of 7.2 s/p R IJ tunneled HD CVC placement POD #1. Per notes, site looks well. Pt successfully underwent HD yesterday. K is now 5.4. Plan: IR will sign-off at this time. Please page with further questions and concerns. Haydee Castaneda PA-C Interventional Radiology IR Team Pager [phone] * Ramonita Bae RN - 12/11/2023 2:18 PM EDT [facility] NURSING DATABASE Name: Hayden Russo Date of : 1975 AGE: 48 y.o. [address]: [address] [place] [id number] Phone: [phone] (home) Mobile: Telephone Information: Referring Provider: Carlos Freeman REASON FOR VISIT: Order Questions Answers Is the patient on anticoagulant / antiplatelet therapy ? DOAC (Direct Oral Anticoagulant),Clopidogrel Reason for exam and clinical history: 47 year old male with hx of STMEI s/p PCI in 2019, s/p CABG on 11/13 with DONAL on CKD with resistant HyperK, met and Res acidosis; need IHD Is the patient taking any anticoagulants and/or antiplatelet meds? Yes Is patient awake, alert, and consentable? Yes Does patient need assist to stand? Yes Does Patient have any mobility limitations (e.g. spinal precautions) Yes Does patient require constant supervision? No Is patient over 450 lbs (200 kg) No If cardiac monitoring, can EKG leads be removed? No Does patient have a pacemaker? No Does patient have a Chest Tube? No Is there a language / communication barrier? No Planned procedure: Tunneled hemodialysis catheter Labs to be performed day of procedure: No labs Sedation: Fentanyl only Prophylactic antibiotic : None Contrast: No contrast Additional medications for procedure: Lidocaine Position: Supine Consent: Pending Medications to discontinue (and days held): None Case Urgency:: D2- Within 24 hours (i.e. can be next day) No Known Allergies Pertinent PMH: Patient Active Problem List Diagnosis Code Acute ST elevation myocardial infarction (STEMI) of inferior wall I21.19 Diabetes mellitus E11.9 Hypertension I10 STEMI (ST elevation myocardial infarction) I21.3 CAD (coronary artery disease) I25.10 S/P CABG x 3 Z95.1 Class 3 severe obesity in adult E66.813, E66.01 CKD (chronic kidney disease) N18.9 DONAL (acute kidney injury) N17.9 Respiratory failure with hypoxia J96.91 CHF (congestive heart failure) I50.9 2 Date/Procedure Meds Given/Comments 12/11/23 tunneled hd line placement Fentanyl 50 mcg, Zofran 4 mg 1437 to procedure room 3 via stretcher. Onto table supine. All monitors, O2, safety strap in place.Meds per protocol. Laboratory Results: Lab Results Component Value Date INR 1.2 2023 INR 0.9 09/22/2023 Lab Results Component Value Date CREATININE 4.37 (H) 12/11/2023 CREATININE 2.83 (H) 09/22/2023 Lab Results Component Value Date K 7.2 (CRIT) 12/11/2023 K 4.9 09/22/2023 Lab Results Component Value Date PLATELET 225 12/11/2023 PLATELET 279 09/22/2023 * Jacqui Feliciano RN - 12/11/2023 10:14 AM EDT Critical VBG reported to MD landis, pH 7.12, Co2 62, K 6.8 * Ariel Deluna MD - 12/11/2023 9:55 AM EDT The patient was seen and examined with the nephrology fellow. Please see the nephrology fellow's note from today for details. I have reviewed the fellow's note including the exam, assessment and plan. My evaluation of the patient is as follows: Patient seen and discussed with renal fellow. He has acute on chronic renal injury. At this point he has had refractory hyperkalemia and is volume overloaded. Despite having placed a Todd this morning with some improvement in urine output I think we will need to proceed to intermittent dialysis totreat this. * Loi Encinas MD - 12/11/2023 8:26 AM EDT [facility] Red Team Inpatient Progress Note ID: Hayden Russo is a 48 y.o. year old male with past medical history of STEMI (treated withprimary PCI in 2018), CKD (baseline Cr ~2.5, previously required renal replacement therapy with CVVH), recent CABG with Dr. Dutta 11/13, DMII admitted on 2023 ( Hospital Day 1 day ) for decompensated HFpEF with marked volume overload, acute hypercarbic respiratory failure, and DONAL on CKD with severe hyperkalemia. Active Hospital Problems Diagnosis Acute on chronic heart failure with preserved ejection fraction (HFpEF) Acute kidney injury superimposed on chronic kidney disease Hyperkalemia Acute hypercapnic respiratory failure Resolved Hospital Problems No resolved problems to display. Overnight History: - 80 mg, 120 lasix given without effect. Additional 160 lasix given at 0637 that lead to ~200-300ccof urine. Additional 120 given at 10AM. - K elevated >7 overnight and refractory to shift therapy X3 with 10units insulin + glucose. - VBG showing severe respiratory acidosis - Tunneled dialysis catheter placed by IR for initiation of iHD - EKG remained stable despite hyperkalemia Interval History: - iHD initiated - Patient evaluated by critical care fellow who determined patient was safe to remain on the medical floor - Oxygenating well on 1L NC Meds: insulin regular human 5 Units Intravenous Once AMIOdarone 200 mg Oral Daily apixaban 2.5 mg Oral BID aspirin 81 mg Oral Daily atorvastatin 40 mg Oral QPM citalopram 10 mg Oral Daily clopidogreL 75 mg Oral Daily pantoprazole EC 40 mg Oral Daily sodium chloride 0.9 % (flush) 5 mL Intravenous BID insulin lispro 1-4 Units Subcutaneous TID AC insulin lispro 0-8 Units Subcutaneous TID WC sodium zirconium cyclosilicate 10 g Oral Q8H ISAMAR senna-docusate 2 tablet Oral BID PRN medications acetaminophen, sodium chloride 0.9 % (flush), lidocaine, melatonin, glucose 40% oral geL OR dextrose OR glucagon, polyethylene glycoL (MIRALAX) oral powder AND bisacodyL AND bisacodyL EC AND lactulose AND lactulose AND magnesium citrate AND Tap water enema, ondansetron Current Facility-Administered Medications Medication Dose Route Frequency acetaminophen (Tylenol) tablet 975 mg 975 mg Oral Q6H PRN sodium chloride 0.9 % (flush) (BD PosiFlush Normal Saline 0.9) flush 5-20 mL 5- 20 mL Intravenous Q1Min PRN lidocaine (Xylocaine) 1% (10 mg/mL) injection 3 mg 0.3 mL Subcutaneous Once PRN melatonin tablet 3 mg 3 mg Oral Nightly PRN glucose (Glutose) 40% oral geL 15-30 g of glucose Buccal Q15 Min PRN Or dextrose 10% infusion 250 mL Intravenous Q15 Min PRN Or glucagon (Glucagen) (1 mg/mL) injection solution 1 mg 1 mg Intramuscular Q15 Min PRN polyethylene glycoL (Miralax) packet 17 g 17 g Oral Daily PRN And bisacodyL (Dulcolax) suppository 10 mg 10 mg Rectal Daily PRN And bisacodyL EC (Dulcolax) tablet 10 mg 10 mg Oral BID PRN And lactulose (Chronulac) (0.67 gram/mL) oral liquid 20 g 20 g Oral Daily PRN And lactulose (Chronulac) (0.67 gram/mL) oral liquid 20 g 20 g Oral Daily PRN And magnesium citrate oral liquid 296 mL 296 mL Oral Once PRN ondansetron (pf) (Zofran) (2 mg/mL) injection 4 mg 4 mg Intravenous Q8H PRN Physical Exam: Last value Range last 24 hrs Temperature Temp: 36.9 ??C (98.4 ??F) Temp: [36.4 ??C (97.6 ??F)-36.9 ??C (98.4 ??F)] Heart Rate Heart Rate: 93 Heart Rate: [54-93] Blood Pressure BP: 159/67 BP: (121-159)/(50-95) Respiratory Rate Resp: 22 Resp: [14-22] SpO2 SpO2: 94 % SpO2: [91 %-100 %] Intake/Output Summary (Last 24 hours) at 12/11/2023 0826 Last data filed at 12/11/2023 0637 Gross per 24 hour Intake 680 ml Output 2175 ml Net -1495 ml Patient Vitals for the past 168 hrs: Weight 12/10/23 1000 132.5 kg (292 lb) Admit wt: 132.45 kg Physical Exam: Gen: in bed in NAD, Anasarca, drowsy HEENT: anicteric, EOMI intact, CV: RRR, no murmurs/rubs/gallops Resp: Normal work of breathing, difficult to auscultate Abd: normal bowel sounds, soft, non-tender to palpation, no rebound or guarding Ext: 2+ distal pulses, no pedal edema Neuro: CN II-XII grossly intact, moves all extremities spontaneously, +asterixis Psych: cooperative. Skin: no rashes, lesions, or ulcerations noted Labs: Recent Labs 12/11/2341212/10/23 1410 WBC 8.68 6.15 HGB 8.6* 8.0* HCT 30.7* 27.8* PLATELET 225 220 Recent Labs 12/11/2341212/10/23233812/10/232020 NA 135 139 137 K 7.4* 6.7* 6.0* CL 106 108* 109* CO2 19* 19* 17* BUN 76* 78* 78* CREATININE 4.38* 4.22* 4.17* GLUCOSE 185 136 218* Recent Labs 12/11/2341212/10/23233812/10/23202012/10/23 1707 12/10/23 1410 CALCIUM 8.9 8.7 8.8 < > 8.7 MAGNESIUM -- -- 0.96 -- 0.97 PHOS -- -- 6.7* -- 6.4* < > = values in this interval not displayed. Recent Labs 12/10/23 1410 AST 23 ALT 62* ALKPHOS 107 BILITOT 0.3 BILIDIR <0.2 Other significant labs: Imaging: Results for orders placed or performed during the hospital encounter of 12/10/23 XR Chest One View (Exam End: 2023 1:38 PM) Result Value WORKSTATION ID [id number] Impression Decreased left lower lobe atelectasis. Otherwise stable exam. Thank you for letting us participate in the care of this patient. If you are a health care provider and have any questions regarding this report, please contact the number below. For patients who have questions please contact the health customer care specialist that requested your imaging first. Electronically signed by: WILLY BRAGG MD, [facility] ([phone]), at 2023 5:14 PM Microbiology: Microbiology Results (Last 30 days) No results found for the last 720 hours. Assessment and Plan: Hayden Russo is a 48 y.o. year old male with past medical history of COLLINS (treated with primary PCI in 2019), CKD (baseline Cr ~2.5, previously required renal replacement therapy with CVVH), recent CABG with Dr. Dutta 11/13, DMII admitted on 2023 ( Hospital Day 1 day ) for decompensated HFpEF with marked volume overload, acute hypercarbic respiratory failure, and DONAL on CKD with severe hyperkalemia. 12/11/23 Urgent iHD started 12/10 given refractory hyperkalemia as well as volume overload and severe acidosis; although, acidosis is at least partly respiratory with pCO2 in the 60s on VBG. Will continue iHDwith adjunctive diuresis as necessary. Oxygen requirements stable at 1L NC. TTE showed mild RV dysfunction (free wall hypokinesis) and normal LVEF (60%) with inferior wall motion abnormalities (consistent with prior TX). #CHF exacerbation, anasarca #Recent CABG #ASCVD, premature #HTN -Responded to 160mg lasix, repeat as needed -volume removal with HD -C/w home ASA -C/w home atorvastatin -C/w home Plavix -HOLD home losartan -TTE -Daily weights -Strict I's and O's -Tele monitoring #DONAL on CKD #Cardiorenal syndrome, likely -volume removal with diuresis and HD -Renally dose medications -Close monitoring of electrolytes -SPEP, UPEP, SFLC, C3/C4, UACR, UPCR per Nephro #Hyperkalemia without EKG changes -refractory to multiple round of shift therapy and lokelma -s/p multiple doses calcium gluconate -Now undergoing iHD -monitor BMP closely # acute hypercarbic respiratory failure -likely due to combination of SWAPNIL, OHS, and acute CHF -diuresis and volume removal with HD -discussed with CCS possible txfer to ICU for BiPAP - CCS anticipates improvement with HD, deferring BiPAP for now -monitor closely and repeat blood gas if concern for worsening hypercarbia #A-fib with RVR #DVT -C/w home Amio -C/w home Eliquis #DMII -SSI -Diabetic diet #Routine Diet: Carb Control diet 60/60/75 CHO counting level 2 DVT Prophylaxis: DOAC GI Prophylaxis: Protonix Code Status: Attempt Cardiopulmonary Resuscitation - Inpatient Tremaine Landis MD 12/11/2023 PGY-1, Internal Medicine Red Team - Pager [phone] [phone] Hospital Medicine Service Attending Documentation I certify that the patient requires: [x] inpatient care status due to DONAL on CKD, refractory hyperkalemia, hypercarbic respiratory failure, and acute on chronic HFpEF. [ ] Observation Care Please see Dr. Landis's note for details of the patient history of presentation and data. I have examined the patient myself and personally reviewed all studies. I have discussed, reviewed and agreewith the documented History, Physical findings, Assessment and Plan of care which I modified to be consistent with the assessment and plan as formulated in discussion with me. LOI ENCINAS MD 12/12/2023 * Jacqui Feliciano, RN - 12/11/2023 7:54 AM EDT Stat EKG ordered, paged EKG as our machine is in biomed broken * Silverio Felipe RN - 12/11/2023 6:35 AM EDT Critical value taken on K, PCO2, and Ph. Primary nurse notified and MD documented in this encounter H&P Notes * Genaro Khalil PA - 12/11/2023 10:49 AM EDT Images from the original note were not included. Interventional Radiology Focused Pre-procedure H&P: PCP: GLENIS Alexandra Procedure indication: CKD IV, hyperkalemia, oliguria, intermediate durable venous access for hemodialysis IR workflow: Procedure request received through the Interventional Radiology eDH order queue. History of present illness: Per chart review, Hayden Russo is a 48 y.o. male who presents toInterventional Radiology to undergo placement of hemodialysis access in the setting of worsening hyperkalemia and oliguria. This is a patient admitted for management of heart failure with volume overload. Oliguric despite diuretic challenge. Referred to IR for placement of tunneled hemodialysis catheter to initiate intermittent dialysis. Potassium 5.8 this morning. Medical history notable for CAD (STEMI 2019 to RCA c/b ISR now s/p CABG 10/30/23 . Remainder of patient's medical and surgical history, allergies, medications, and social/family history obtained below as previously outlined in patient's medical record. IR history: none Imaging: Assessment: 48 y.o. male with worsening CKD symptoms initiating hemodialysis presenting to Interventional Radiology for tunneled catheter placement. Plan Planned procedure: Tunneled hemodialysis catheter Labs to be performed day of procedure: No labs Sedation: Fentanyl only Prophylactic antibiotic : None Contrast: No contrast Additional medications for procedure: Lidocaine Position: Supine Consent: Pending Medications to discontinue (and days held): None Cytopathology presence needed: No Case Urgency:: D2- Within 24 hours (i.e. can be next day) Labs: Lab Results Component Value Date HGB 8.6 (L) 12/11/2023 HGB 12.4 (L) 09/22/2023 HCT 30.7 (L) 12/11/2023 HCT 42.5 09/22/2023 WBC 8.68 12/11/2023 WBC 9.0 09/22/2023 PLATELET 225 12/11/2023 PLATELET 279 09/22/2023 INR 1.2 2023 INR 0.9 09/22/2023 BUN 80 (H) 12/11/2023 BUN 34 (H) 09/22/2023 CREATININE 4.38 (H) 12/11/2023 CREATININE 2.83 (H) 09/22/2023 ALBUMIN 3.4 2023 ALBUMIN 3.8 09/22/2023 BILIDIR <0.2 2023 BILIDIR 0.1 09/22/2023 BILITOT 0.3 2023 BILITOT 0.3 09/22/2023 AST 23 2023 AST 19 09/22/2023 ALT 62 (H) 2023 ALT 18 09/22/2023 ALKPHOS 107 2023 ALKPHOS 97 09/22/2023 Allergies: Patient has no known allergies. Medications: No current facility-administered medications on file prior to encounter. Current Outpatient Medications on File Prior to Encounter Medication Sig Dispense Refill dapagliflozin propanediol (Farxiga) 10 mg tablet Take 1 tablet by mouth daily. torsemide (Demadex) 20 mg tablet Take 2 tablets by mouth daily. 90 tablet 0 losartan (Cozaar) 50 mg tablet Take 1 tablet by mouth 2 times daily. 180 tablet 5 atorvastatin (Lipitor) 40 mg tablet Take 1 tablet by mouth every evening for 30 days. Then resume 80mg daily 30 tablet 0 AMIOdarone (Pacerone) 200 mg tablet Take 1 tablet by mouth daily. 30 tablet 0 apixaban (Eliquis) 2.5 mg tablet Take 1 tablet by mouth 2 times daily. 60 tablet 5 clopidogreL (Plavix) 75 mg tablet Take 1 tablet by mouth daily. 90 tablet 3 citalopram (CeleXA) 10 mg tablet Take 1 tablet by mouth daily. 60 tablet 3 pantoprazole EC (Protonix) [address] tablet Take 1 tablet by mouth daily. 90 tablet 3 aspirin 81 mg Tablet, Chewable Take 81 mg by mouth daily. 30 tablet 3 Cholecalciferol, Vitamin D3, (Dialyvite Vitamin D) 125 mcg (5,000 unit) Capsule Take 1 capsule by mouth daily. 90 capsule 3 oxyCODONE (Roxicodone) 5 mg tablet Take 1 tablet by mouth every 8 hours as needed for Pain. (Patient not taking: Reported on 11/27/2023) 14 tablet 0 Insulin Basaglar KwikPen U-100 100 unit/mL (3 mL) pen Inject 40 Units subcutaneously daily. humaLOG KwikPen 100 unit/mL Insulin Pen Inject 0-14 Units subcutaneously 3 times daily (with meals). acetaminophen (Tylenol) 500 mg tablet Take 2 tablets by mouth every 6 hours as needed for Pain. ferrous sulfate (FeroSul) 325 mg (65 mg iron) tablet Take 1 tablet by mouth 3 times daily (with meals). (Patient taking differently: Take 325 mg by mouth daily.) blood-glucose meter (FREESTYLE) Kit USE TO CHECK GLUCOSE THREE TIMES DAILY 0 ONETOUCH ULTRA BLUE TEST STRIP Strip USE 1 STRIP TO CHECK GLUCOSE THREE TIMES DAILY . 11 Past medical/surgical history: Patient Active Problem List Diagnosis Code Acute ST elevation myocardial infarction (STEMI) of inferior wall I21.19 Diabetes mellitus E11.9 Hypertension I10 STEMI (ST elevation myocardial infarction) I21.3 CAD (coronary artery disease) I25.10 S/P CABG x 3 Z95.1 Class 3 severe obesity in adult E66.813, E66.01 CKD (chronic kidney disease) N18.9 DONAL (acute kidney injury) N17.9 Respiratory failure with hypoxia J96.91 CHF (congestive heart failure) I50.9 Past Medical History: Diagnosis Date Coronary artery disease Diabetes Hypertension Past Surgical History: Procedure Laterality Date CORONARY ANGIOPLASTY WITH STENT PLACEMENT HERNIA REPAIR PRG CATH [facility] LEFT HEART CATH & ARTS W/INJ & ANGIO IMG S&I N/A 08/04/2023 CORONARY ANGIOGRAPHY; W [facility],POSSIBLE PCI (WRVU 5.6) performed by Azul Rowley MD at [facility] CATHLABS PRO CABG, ARTERIAL, SINGLE N/A 10/30/2023 @CABG, USING ARTERIAL GRAFT;SINGLE ARTERIAL GRAFT (WRVU 33.75) performed by Timi Dutta MD at [facility] MAIN OR PRO CABG, ARTERY-VEIN, TWO N/A 10/30/2023 @CABG, TWO VENOUS GRAFTS & ARTERIAL GRAFT (WRVU 7.93) performed by Timi Dutta MD at [facility] MAIN OR PRO ENDOSCOPY W/VIDEO-ASST VEIN HARVEST, CABG N/A 10/30/2023 ENDOSCOPIC HARVEST VEIN(S) FOR CABG (WRVU 0.31) performed by Timi Dutta MD at [facility] MAIN OR Social history and habits: Social History Tobacco Use Smoking status: Former Current packs/day: 1.00 Average packs/day: 1 pack/day for 10.0 years (10.0 ttl pk-yrs) Types: Cigarettes Smokeless tobacco: Never Substance Use Topics Alcohol use: Not Currently Comment: Pt reports I haven't had a beer in months Drug use: Never Significant family history: Family History Problem Relation Age of Onset Coronary Artery Disease Father 62 Hypertension Father Hyperlipidemia Father Diabetes Maternal Grandfather Diabetes Paternal Grandfather Pertinent ROS: as per HPI Physical exam: Pending (to be performed in interventional radiology the day of procedure) ASA: Pending (to be assessed in interventional radiology the day of procedure) Mallampati class: Pending (to be assessed in interventional radiology the day of procedure) 12/11/2023 GLENIS Tiwari * John Davis MD - 2023 12:21 PM EDT Images from the original note were not included. [facility] Medicine H&P Patient info: Name: Hayden Russo : 1975 PCP: GLENIS Alexandra PCP phone number: [phone] Date of Admission: 2023 ( Hospital Day 0 days ) Attending:Loi Encinas MD ID: Hayden Russo is a 47 y.o. male w/ PMH STEMI (treated with primary PCI in 2019), CKD (baseline Cr ~2.5, previously required renal replacement therapy with CVVH), recent CABG with Dr. Dutta 11/13, DMII, here as a transfer from [facility] with shortness of breath, hyperkalemia, hypervolemia. HPI: 47-year-old gentleman with recent CABG and known renal insufficiency presented initially to [facility] with worsening anasarca and right upper quadrant pain. Patient reports pain in the right anteriorchest for 3 days. This was associated SOB at rest and worse with moving. Patient would go 20 ft in the house and would almost pass out due to exhaustion. Pt decided to call ambulance. Pt does sleep in a recliner at a 45 degree angle and over the last several days patient has noticed he has to sit a bit more upright to feel more comfortable with his breathing. The more upright I sit the better off I feel. Patient reports that at OSH after he received Lasix he had instant relief and the pain in his chest went away. He states that he did not miss any recent doses of his diuretic, Torsemide 40 mg, which he takes daily. No recent travel on plane or car. Since heart surgery, can't drive until 12/16. When discharged, weight was 258 lbs A few days later, weight was 272 lbs Today weight is 294 lbs At the outside hospital EKG shows sinus rhythm at 54 without any acute changes labs were notable for hyperkalemia to 6.7 and chest x-ray showed cardiomegaly with left pleural effusion. At [facility] he got 80 mg of IV Lasix and on EKG there were no changes from baseline. Noncon CT chest abdomen pelvis was obtained did not show any concerning findings. Some gallstones without any obvious inflammation. Patient's repeat BMP at the outside hospital was notable for worsening hyperkalemia to 7.3 but it unclear the timing of this lab draw in relation to the lasix administration. No changes on telemetry, he put out 500 mL after the initial Lasix. He felt a lot better subjectively. Patient denies sharp substernal pain, no dizziness, vomiting, no URI symptoms, or headaches. Pt denies leg numbness or tingling, no changes with urination or stooling. No fevers, chills, night sweats. PMH Past Medical History: Diagnosis Date Coronary artery disease Diabetes Hypertension PSH Past Surgical History: Procedure Laterality Date CORONARY ANGIOPLASTY WITH STENT PLACEMENT HERNIA REPAIR PRG CATH PLMT LEFT HEART CATH & ARTS W/INJ & ANGIO IMG S&I N/A 08/04/2023 CORONARY ANGIOGRAPHY; W [facility],POSSIBLE PCI (WRVU 5.6) performed by Azul Rowley MD at [facility] CATHLABS PRO CABG, ARTERIAL, SINGLE N/A 10/30/2023 @CABG, USING ARTERIAL GRAFT;SINGLE ARTERIAL GRAFT (WRVU 33.75) performed by Timi Dutta MD at [facility] MAIN OR PRO CABG, ARTERY-VEIN, TWO N/A 10/30/2023 @CABG, TWO VENOUS GRAFTS & ARTERIAL GRAFT (WRVU 7.93) performed by Timi Dutta MD at [facility] MAIN OR PRO ENDOSCOPY W/VIDEO-ASST VEIN HARVEST, CABG N/A 10/30/2023 ENDOSCOPIC HARVEST VEIN(S) FOR CABG (WRVU 0.31) performed by Timi Dutta MD at [facility] MAIN OR Family History Family History Problem Relation Age of Onset Coronary Artery Disease Father 62 Hypertension Father Hyperlipidemia Father Diabetes Maternal Grandfather Diabetes Paternal Grandfather Allergies: No Known Allergies Home Medications: Current Outpatient Medications Medication Instructions acetaminophen (TYLENOL) 1,000 mg, Oral, EVERY 6 HOURS PRN AMIOdarone (PACERONE) 200 mg, Oral, DAILY apixaban (ELIQUIS) 2.5 mg, Oral, 2 TIMES DAILY aspirin 81 mg, Oral, DAILY atorvastatin (LIPITOR) 40 mg, Oral, EVERY EVENING, Then resume 80mg daily blood-glucose meter (FREESTYLE) Kit USE TO CHECK GLUCOSE THREE TIMES DAILY Cholecalciferol (Vitamin D3) (DIALYVITE VITAMIN D) 5,000 Units, Oral, DAILY citalopram (CELEXA) 10 mg, Oral, DAILY clopidogreL (PLAVIX) 75 mg, Oral, DAILY dapagliflozin propanediol (FARXIGA) 10 mg, Oral, DAILY ferrous sulfate (FEROSUL) 325 mg, Oral, 3 TIMES DAILY WITH MEALS humaLOG KwikPen 0-14 Units, Subcutaneous, 3 TIMES DAILY WITH MEALS Insulin Basaglar KwikPen U-100 40 Units, Subcutaneous, DAILY losartan (COZAAR) 50 mg, Oral, 2 TIMES DAILY ONETOUCH ULTRA BLUE TEST STRIP Strip USE 1 STRIP TO CHECK GLUCOSE THREE TIMES DAILY . oxyCODONE (ROXICODONE) 5 mg, Oral, EVERY 8 HOURS PRN pantoprazole EC (PROTONIX) 40 mg, Oral, DAILY torsemide (DEMADEX) 40 mg, Oral, DAILY Objective: Vitals Last value Range last 24 hrs Temperature Temp: 36.7 ??C (98.1 ??F) Temp: [36.7 ??C (98.1 ??F)] Heart Rate Heart Rate: 56 Heart Rate: [54-56] Blood Pressure BP: 127/63 BP: (127-144)/(63-95) Respiratory Rate Resp: 15 Resp: [15-16] SpO2 SpO2: 100 % SpO2: [95 %-100 %] Oxygen Delivery Oxygen Therapy O2 Device: Nasal cannula O2 Flow Rate (L/min): 2 L/min Intake/Output Summary (Last 24 hours) at 2023 1542 Last data filed at 2023 1400 Gross per 24 hour Intake -- Output 425 ml Net -425 ml Physical Exam: Gen: in bed in NAD, Anasarca, speaking complete sentences, pleasant HEENT: anicteric, EOMI intact, CV: RRR, no murmurs/rubs/gallops Resp: Normal work of breathing, difficult to auscultate Abd: normal bowel sounds, soft, non-tender to palpation, no rebound or guarding Ext: 2+ distal pulses, no pedal edema Neuro: no focal deficits noted, CN II-XII grossly intact, moves all extremities spontaneously Psych: cooperative. Skin: no rashes, lesions, or ulcerations noted Labs: Recent Labs 12/10/23 1410 WBC 6.15 HGB 8.0* HCT 27.8* PLATELET 220 MCV 76.2* Recent Labs 12/10/23 1410 NA 140 CL 111* CO2 20* K 6.8* MAGNESIUM 0.97 PHOS 6.4* CALCIUM 8.7 BUN 75* CREATININE 4.09* LFTs Recent Labs 12/10/23 1410 PROT 6.5 ALBUMIN 3.4 AST 23 ALT 62* ALKPHOS 107 BILITOT 0.3 BILIDIR <0.2 Coags Recent Labs 12/10/23 1410 INR 1.2 PT 13.3* PTT 33 Cardiac Enzymes Recent Labs 12/10/23 1410 PROBNP 6,349* Endocrine Recent Labs 11/04/23 0946 06/04/23 1857 TSH 7.14* 3.68 Recent Labs 12/10/23 1300 POCGLU 88 Heme No results for input(s): LDH, HAPTOGLOBIN, URICACID in the last 168 hours. ABG (Arterial Blood Gas) No results found for: PHART, PO2ART, SWX1TTT, [id number] Microbiology: None Imaging: Assessment & Plan: 47-year-old gentleman with recent CABG and known renal insufficiency presented initially to [facility] with worsening anasarca with right upper quadrant pain. Patient describes right-anterior chest pain that resolved with diuretics. Could be 2/2 RHF with hepatojugular swelling and distension which improved with getting some of that fluid off. Difficult to appreciate JVD given body habitus. Based on labs here it's clear he is quite volume overloaded. Patient had numerous complications and a prolonged hospitalizations require both intubation and CVVH after his recent CABG here. Goal this admission is to tune him up fluid-otero, obtain a TTE, and discharge on a more aggressive diuresis regimen. Based on patient's physical exam, history, symptomatic relief with diuretics, and rapid weight gainassociated with edema, this likely represents a congestive heart failure exacerbation. It seems like patient was not on high enough dose of Torsemide and thus fluid has accumulated. [facility] and today his weight is 292 lbs. Plan to diurese this hospitalizat ion with daily weights measured, shooting for his dry weight of 258 lbs. His proBNP was elevated to572 at the OSH which is not as high as I would have expected given the degree of fluid accumulation. However, proBNP can be falsely low in patients with obesity, and his BMI is > 40. #CHF exacerbation, anasarca #Recent CABG #ASCVD, premature #HTN -S/p 80 mg IV Lasix at OSH -Additional 80 mg IV lasix this afternoon -C/w home ASA -C/w home atorvastatin -C/w home Plavix -C/w home losartan -TTE ordered -Daily weights -Strict I's and O's -Tele monitoring #A-fib with RVR #DVT -C/w home Amio -C/w home Eliquis #DONAL on CKD #Cardiorenal syndrome, likely Expect Cr to improve with diuresis -Renally dose medications -Close monitoring of electrolytes #Hyperkalemia without EKG changes -Serial EKGs -Shift therapy, Reglakelma -q6h BMP #DMII -SSI -Diabetic diet #Routine Diet: Carb Control diet 60/60/75 CHO counting level 2 DVT Prophylaxis: DOAC GI Prophylaxis: Protonix Code Status: Attempt Cardiopulmonary Resuscitation - Inpatient John Davis MD Internal Medicine [id number] 12/10/23 3:42 PM Associated attestation - Loi Encinas MD - 12/12/2023 8:49 PM EDT Attending Staff Admission Documentation I have examined the patient myself on 2023 and reviewed all labs and studies personally. Please see Dr. Davis's documentation for details of the patient history of presentation and data.I have discussed, reviewed and agree with the documented history with ROS, physical findings, labs/studies, assessment and plan of care with the exception that we will not continue losartan as suggested below but rather hold it in setting of DONAL and hyperkalemia -- this was discussed with resident on the day of admission and losartan was stopped but not before he was already given a dose. LOI ENCINAS MD 12/11/2023 documented in this encounter Miscellaneous Notes * Care Management Discharge - Becky Arellano RN - 12/21/2023 4:41 PM EDT CARE MANAGEMENT FINAL DISCHARGE NOTE Chart reviewed, care reviewed with primary team and at interdisciplinary rounds. Patient is medically ready for discharge to home. Needs for Transition of Care: Plan for discharge is: Home w/ Services *Patient wants to go home with [facility]NA Outpatient Agency/Support Group Needs: None Home Health Services: Physical Therapy, Occupational Therapy, Registered Nurse Agency Referrals & Follow-up Care: Contact information for follow-up [address] [address] Transportation: family or friend will provide Wheelchair van/Ambulance? No Functional status prior to admission: Independent Home Environment: Others in the home: spouse, pet(s) (, Alina and 1 cat). Current Living Arrangements: home/apartment/condo. Accessibility Concerns:Second floor apartment.. Current Functional Ability: Independent DME used at home: none DME Needed at Discharge: Patient is insured through: Primary Insurance: [employer] [facility] Payor: [facility] / Plan: [facility] / Product Type: *No Product type* / Secondary Insurance: N/A Prescription Coverage: Yes This plan was formulated with input from patient and team. All are in agreement with plan. Becky Arellano RN CM Software Architect- Medicine Office of Care Management Ext: [phone] Pager: [phone] * Plan of Care - Katya Darling RN - 12/21/2023 3:58 PM EDT OUTCOME EVALUATION NOTE: OUTCOME SUMMARY: Received alert/oriented, not in any distress, all needs attended, due medication given, ambulating around, S/E by the team, PIV dc, tip intact, DC home, taken down via wchair by the EMERGENCY ROOM CLINICIAN. PLAN MOVING FORWARD: DC home INDIVIDUALIZED FALL PREVENTION INTERVENTIONS: Patient-specific fall risk factors per assessment: [current deficits]: home Assistance [level of assistance required for transfers and ambulation]: wchair Supervision [direct monitoring required during toileting and ADLs]: SBA Patient-specific fall prevention interventions for sensory deficits provided, if applicable: [X] N/A CARE PLAN GOAL OUTCOME EVALUATION: Problem: Adult Inpatient Plan of Care Goal: Plan of Care Review Outcome: Outcome (s) achieved Goal: Patient-Specific Goal (Individualized) Outcome: Outcome (s) achieved Goal: Absence of Hospital-Acquired Illness or Injury Outcome: Outcome (s) achieved Goal: Optimal Comfort and Wellbeing Outcome: Outcome (s) achieved Goal: Readiness for Transition of Care Outcome: Outcome (s) achieved * Plan of Care - Zeus Lloyd MD - 12/21/2023 3:01 PM EDT Images from the original note were not included. INTERVENTIONAL RADIOLOGY Inpatient Progress Note Admitted 2023 Procedure(s): Tunneled Dialysis Line Post-procedure day: #10 Time of patient encounter: 2:45PM 24 Hour Events: Pain after dialysis from access site. Last Value 24 Hour Range Temperature 36.8 ??C (98.2 ??F) Temp: [36.8 ??C (98.2 ??F)-37 ??C (98.6 ??F)] Heart Rate 96 Heart Rate: [61-96] Blood Pressure 143/78 BP: (117-143)/(65-79) Respiratory Rate 16 Resp: [16-18] SpO2 92 % SpO2: [88 %-99 %] Physical Exam GEN No distress, A&O CARDS RRR LUNGS CTA B/L ABD Non tender, nondistended Vasc ACCESS Right tunneled line in place, no thrill. Drains/Tubes: N/A Labs: Reviewed Micro: N/A Imaging: CXR 12/17/23 Assessment: 48 y.o. male s/p tunneled dialysis line placement 12/11/23. IR was contacted by Bailey Meadows MD as patient was experiencing pain near TDC site after recent hemodilaysis three times weekly. I went to evaluate the patients site and it was not showing signs of inflammation, not indurated or warm to touch. I reassured the patient and informed them that pain is to be expected and reviewed images to determine that the line was in place. Medicine team was informed Plan: Recommend to use over the counter pain medications as needed and contact the hospital if site becomes more tender, warm, or if patient develops a fever. IR team will be signing off patient. Zeus Lloyd M.D PGY-2 Interventional Sales Development Representative Department of Diagnostic and Interventional Radiology [facility]. Pager#[phone] IR Team Pager #[phone] * Plan of Care - Carlos Luciano RN - 12/21/2023 4:26 AM EDT OUTCOME EVALUATION NOTE: OUTCOME SUMMARY: PT VSS on RA while awake and 2LNC while asleep, O2 Study overnight, pt placed on 2LNC @0326 . PT AOx4. PT on telemetry NSR rate in the 80's - 90's. PT continent and uses urinal provided. PT up walking multiple laps around unit. No acute events overnight. PLAN MOVING FORWARD: Q4 VS Q8 I/O's' HD Mobilize Titrate Oxygen Pain mgt Diuresis Safe DC Planning INDIVIDUALIZED FALL PREVENTION INTERVENTIONS: Patient-specific fall risk factors per assessment: [current deficits]: Hosp setting, tubings, weakness Assistance [level of assistance required for transfers and ambulation]: SBA Supervision [direct monitoring required during toileting and ADLs]: eyes on Surveillance [continuous indirect monitoring]: Masimo, Tele, Bed alarm Patient-specific fall prevention interventions for sensory deficits provided, if applicable: [X] No Problem: Adult Inpatient Plan of Care Goal: Plan of Care Review Outcome: Ongoing (Interventions Implemented as Appropriate) Goal: Patient-Specific Goal (Individualized) Outcome: Ongoing (Interventions Implemented as Appropriate) Goal: Absence of Hospital-Acquired Illness or Injury Outcome: Ongoing (Interventions Implemented as Appropriate) Goal: Optimal Comfort and Wellbeing Outcome: Ongoing (Interventions Implemented as Appropriate) Goal: Readiness for Transition of Care Outcome: Ongoing (Interventions Implemented as Appropriate) Problem: Pain Acute Goal: Acceptable Pain Control and Functional Ability Outcome: Ongoing (Interventions Implemented as Appropriate) Problem: Infection Goal: Absence of Infection Signs and Symptoms Outcome: Ongoing (Interventions Implemented as Appropriate) Problem: Fall Injury Risk Goal: Absence of Fall and Fall-Related Injury Outcome: Ongoing (Interventions Implemented as Appropriate) Problem: Gas Exchange Impaired Goal: Optimal Gas Exchange Outcome: Ongoing (Interventions Implemented as Appropriate) Problem: Chest Pain Goal: Resolution of Chest Pain Symptoms Outcome: Ongoing (Interventions Implemented as Appropriate) Problem: Diabetes Comorbidity Goal: Blood Glucose Level Within Targeted Range Outcome: Ongoing (Interventions Implemented as Appropriate) Problem: Heart Failure Comorbidity Goal: Maintenance of Heart Failure Symptom Control Outcome: Ongoing (Interventions Implemented as Appropriate) Problem: Adjustment to Illness (Chronic Kidney Disease) Goal: Optimal Coping with Chronic Illness Outcome: Ongoing (Interventions Implemented as Appropriate) Problem: Electrolyte Imbalance (Chronic Kidney Disease) Goal: Electrolyte Balance Outcome: Ongoing (Interventions Implemented as Appropriate) Problem: Fluid Volume Excess (Chronic Kidney Disease) Goal: Fluid Balance Outcome: Ongoing (Interventions Implemented as Appropriate) Problem: Functional Decline (Chronic Kidney Disease) Goal: Optimal Functional Ability Outcome: Ongoing (Interventions Implemented as Appropriate) Problem: Hematologic Alteration (Chronic Kidney Disease) Goal: Absence of Anemia Signs/Symptoms Outcome: Ongoing (Interventions Implemented as Appropriate) Problem: Oral Intake Inadequate (Chronic Kidney Disease) Goal: Optimal Oral Intake Outcome: Ongoing (Interventions Implemented as Appropriate) Problem: Renal Function Impairment (Chronic Kidney Disease) Goal: Laboratory Values and Blood Pressure Within Desired Range Outcome: Ongoing (Interventions Implemented as Appropriate) * Plan of Care - Carlos Luciano RN - 12/20/2023 9:40 PM EDT Pt currently refusing bed alarm, pt educated on need / purpose: pt still electing to refuse bed alarm at this time. Pt W/ steady gate A&O x4, should DC home in the AM. * Plan of Care - Katya Darling RN - 12/20/2023 5:13 PM EDT OUTCOME EVALUATION NOTE: OUTCOME SUMMARY: Received pt on bed, alert/oriented/comfortable, had HD today, frequently ambulating around, good appetite, positive urine/BM output, vitally stable; all due medication given, needs attended, no acuteevents. PLAN MOVING FORWARD: Outpatient dialysis. DC INDIVIDUALIZED FALL PREVENTION INTERVENTIONS: Patient-specific fall risk factors per assessment: [current deficits]: hospital setting, syncopal. Assistance [level of assistance required for transfers and ambulation]: SBA Supervision [direct monitoring required during toileting and ADLs]: eyes on Surveillance [continuous indirect monitoring]: remote tele, masimo, frequent rounding, near to station. Patient-specific fall prevention interventions for sensory deficits provided, if applicable: [X] N/A CARE PLAN GOAL OUTCOME EVALUATION: Problem: Adult Inpatient Plan of Care Goal: Plan of Care Review Outcome: Ongoing (Interventions Implemented as Appropriate) Goal: Patient-Specific Goal (Individualized) Outcome: Ongoing (Interventions Implemented as Appropriate) Goal: Absence of Hospital-Acquired Illness or Injury Outcome: Ongoing (Interventions Implemented as Appropriate) Goal: Optimal Comfort and Wellbeing Outcome: Ongoing (Interventions Implemented as Appropriate) Goal: Readiness for Transition of Care Outcome: Ongoing (Interventions Implemented as Appropriate) Problem: Pain Acute Goal: Acceptable Pain Control and Functional Ability Outcome: Ongoing (Interventions Implemented as Appropriate) Problem: Infection Goal: Absence of Infection Signs and Symptoms Outcome: Ongoing (Interventions Implemented as Appropriate) Problem: Fall Injury Risk Goal: Absence of Fall and Fall-Related Injury Outcome: Ongoing (Interventions Implemented as Appropriate) * Care Management - Becky Arellano RN - 12/20/2023 1:12 PM EDT OFFICE OF CARE MANAGEMENT PROGRESS NOTE LOS: Hospital Day 10 days Chart reviewed, care reviewed with primary team and at interdisciplinary rounds. Medical Decision Maker: Self Financial Decision Maker: Self Functional status prior to admission: Independent Home Environment: Others in the home: spouse, pet(s) (, Alina and 1 cat). Current Living Arrangements: home/apartment/condo. Accessibility Concerns: Second floor apartment.. Current Functional Ability: Independent DME used at home: none DME Needed at Discharge: No Patient is insured through: Primary Insurance: [employer] [place] Payor: [employer] [facility] / Plan: [facility] SHOP / Product Type: *No Product type* / Secondary Insurance: N/A Last Physical Therapy Recommendation: home with home health with None (he has a rolling walker @ home) Last Occupational Therapy Recommendation: home with home health with None Plan for discharge is: Home w/ Services *Patient wants to go home with VNA Outpatient Agency/Support Group Needs: None Hemodialysis Needs: New Location: [facility], [facility], [facility] HD Chair Confirmed: 1 HD ChairDetails: [facility] M/W/F Home Health Services: Physical Therapy, Occupational Therapy, Registered Nurse Agency Referrals: New dialysis chair confirmed for [facility] and visiting nurses through [facility], will needO2 after nocturnal o2 test complete. [facility] Main phone number: [phone] Main fax: [phone] -They cover all [place] Transportation: family or friend will provide Barriers to discharge: Global: None Plan: Patient is not medically ready related to: Renal failure, CHF, SWAPNIL. Plan going forward is: Nocturnal O2 test tonight, then DC tomorrow. Anticipated Date of Discharge: 12/21/2023 Becky Arellano RN CM Software Architect- Medicine Office of Care Management Ext: [phone] Pager: [phone] * Plan of Care - Carlos Luciano RN - 12/20/2023 4:06 AM EDT OUTCOME EVALUATION NOTE: OUTCOME SUMMARY: PT VSS on RA while awake and 2LNC while asleep. PT AOx4. PT on telemetry NSR to 1st deg AVB rate inthe 80's - 90's. PT continent and uses urinal provided. PT up walking multiple laps around unit. Noacute events overnight. PLAN MOVING FORWARD: Q4 VS Q8 I/O's' HD Mobilize Titrate Oxygen Pain mgt Diuresis Safe DC Planning INDIVIDUALIZED FALL PREVENTION INTERVENTIONS: Patient-specific fall risk factors per assessment: [current deficits]: Hosp setting, tubings, weakness Assistance [level of assistance required for transfers and ambulation]: SBA Supervision [direct monitoring required during toileting and ADLs]: eyes on Surveillance [continuous indirect monitoring]: Masimo, Tele, Bed alarm Patient-specific fall prevention interventions for sensory deficits provided, if applicable: [X] No Problem: Adult Inpatient Plan of Care Goal: Plan of Care Review Outcome: Ongoing (Interventions Implemented as Appropriate) Goal: Patient-Specific Goal (Individualized) Outcome: Ongoing (Interventions Implemented as Appropriate) Goal: Absence of Hospital-Acquired Illness or Injury Outcome: Ongoing (Interventions Implemented as Appropriate) Goal: Optimal Comfort and Wellbeing Outcome: Ongoing (Interventions Implemented as Appropriate) Goal: Readiness for Transition of Care Outcome: Ongoing (Interventions Implemented as Appropriate) Problem: Pain Acute Goal: Acceptable Pain Control and Functional Ability Outcome: Ongoing (Interventions Implemented as Appropriate) Problem: Infection Goal: Absence of Infection Signs and Symptoms Outcome: Ongoing (Interventions Implemented as Appropriate) Problem: Fall Injury Risk Goal: Absence of Fall and Fall-Related Injury Outcome: Ongoing (Interventions Implemented as Appropriate) Problem: Gas Exchange Impaired Goal: Optimal Gas Exchange Outcome: Ongoing (Interventions Implemented as Appropriate) Problem: Chest Pain Goal: Resolution of Chest Pain Symptoms Outcome: Ongoing (Interventions Implemented as Appropriate) Problem: Diabetes Comorbidity Goal: Blood Glucose Level Within Targeted Range Outcome: Ongoing (Interventions Implemented as Appropriate) Problem: Heart Failure Comorbidity Goal: Maintenance of Heart Failure Symptom Control Outcome: Ongoing (Interventions Implemented as Appropriate) Problem: Adjustment to Illness (Chronic Kidney Disease) Goal: Optimal Coping with Chronic Illness Outcome: Ongoing (Interventions Implemented as Appropriate) Problem: Electrolyte Imbalance (Chronic Kidney Disease) Goal: Electrolyte Balance Outcome: Ongoing (Interventions Implemented as Appropriate) Problem: Fluid Volume Excess (Chronic Kidney Disease) Goal: Fluid Balance Outcome: Ongoing (Interventions Implemented as Appropriate) Problem: Functional Decline (Chronic Kidney Disease) Goal: Optimal Functional Ability Outcome: Ongoing (Interventions Implemented as Appropriate) Problem: Hematologic Alteration (Chronic Kidney Disease) Goal: Absence of Anemia Signs/Symptoms Outcome: Ongoing (Interventions Implemented as Appropriate) Problem: Oral Intake Inadequate (Chronic Kidney Disease) Goal: Optimal Oral Intake Outcome: Ongoing (Interventions Implemented as Appropriate) Problem: Renal Function Impairment (Chronic Kidney Disease) Goal: Laboratory Values and Blood Pressure Within Desired Range Outcome: Ongoing (Interventions Implemented as Appropriate) * Plan of Care - Carlos Luciano RN - 12/19/2023 7:00 PM EDT Pt currently refusing bed alarm, pt educated on need/purpose; still electing to refuse at this time. Pt w/ steady gate when ambulating. * Plan of Care - Feng Perez RN - 12/19/2023 3:39 PM EDT OUTCOME EVALUATION NOTE: OUTCOME SUMMARY: PT VSS on RA desaturates to 80% when sleeping and requires 2LNC. PT AOx4. PT on telemetry NSR, 1st deg AVB rate in the 80's. PT continent and uses urinal provided. PT able to go two laps around unit.PT had would consult, coccyx red but blanchable. Encourage patient to ambulate more and sit to edgeof bed more than lying down. PLAN MOVING FORWARD: Q4 VS Q8 I/O's Q2 Turns Mobilize Titrate Oxygen Pain mgt Diuresis Wound consult INDIVIDUALIZED FALL PREVENTION INTERVENTIONS: Patient-specific fall risk factors per assessment: [current deficits]: Hosp setting, tubings, weakness Assistance [level of assistance required for transfers and ambulation]: SBA Supervision [direct monitoring required during toileting and ADLs]: eyes on Surveillance [continuous indirect monitoring]: Masimo, Tele, Bed alarm Patient-specific fall prevention interventions for sensory deficits provided, if applicable: [X] No * Consult Note - Thi Saravia RN - 12/19/2023 10:02 AM EDT Images from the original note were not included. Wound Care Nurse Note Situation: Asked to see Hayden Russo for Patient has difficulty turning due to pain on his chest from the dialysis catheter. Redness noted ,blanchable, at the sacral are bilateral and rednessat coccyx area too. Background: eD-H notes reviewed for history, admitting diagnosis and active problem list. Labs Lab Results Component Value Date ALBUMIN 3.4 2023 ALBUMIN 3.5 11/27/2023 ALBUMIN 2.7 (L) 11/11/2023 ALBUMIN 3.8 09/22/2023 ALBUMIN 3.8 10/12/2018 HA1C 9.5 (H) 10/31/2023 HA1C 11.2 (H) 06/05/2023 HA1C 13.9 (H) 10/13/2018 WBC 10.66 (H) 12/19/2023 WBC 10.57 (H) 12/18/2023 WBC 8.54 12/17/2023 WBC 9.0 09/22/2023 WBC 10.4 (H) 08/04/2023 WBC 8.6 06/07/2023 HGB 8.3 (L) 12/19/2023 HGB 8.2 (L) 12/18/2023 HGB 8.1 (L) 12/18/2023 HGB 12.4 (L) 09/22/2023 HGB 12.0 (L) 08/04/2023 HGB 9.7 (L) 06/07/2023 HCT 28.6 (L) 12/19/2023 HCT 28.0 (L) 12/18/2023 HCT 27.7 (L) 12/18/2023 HCT 42.5 09/22/2023 HCT 41.3 08/04/2023 HCT 33.7 (L) 06/07/2023 PLATELET 261 12/19/2023 PLATELET 211 12/18/2023 PLATELET 173 12/17/2023 PLATELET 279 09/22/2023 PLATELET 273 08/04/2023 PLATELET 237 06/07/2023 INR 1.2 2023 INR 1.1 11/03/2023 INR 1.1 11/03/2023 INR 0.9 09/22/2023 INR 0.9 10/12/2018 PT 13.3 (H) 2023 PT 12.4 11/03/2023 PT 13.0 (H) 11/03/2023 PT 10.2 09/22/2023 PT 10.7 10/12/2018 Nutritional Status Wt Readings from Last 1 Encounters: 12/19/23 114.4 kg (252 lb 3.3 oz) Body mass index is 36.19 kg/m??. Duane Score: 19 Wound Assessment and Care Provided: Patient seen this morning in room 157-A in bed, reason for visit explained to patient, permission received to assess skin. Anatomical location: Coccyx Dressing removed: Mepilex sacral border Wound: Superficial tissue loss to one small area on left gluteal Skin: Red and blanchable Dressing applied: Mepilex sacral border Photos taken: Current bed: [facility] Assessment: Patient has a small friction injury to left gluteal. Surrounding skin is red but blanchable, therefore, not a pressure injury at this point. Provided education on importance of offloadingto prevent a pressure injury. Patient understands and willing to offload. Continue with Mepilex sacral border for prevention. Wound Care Recommendations: Sacrum: Mepilex Border dressing-nursing to change every 3 days and as needed for dressing with 50% or greater strike though drainage. 1. Cleanse wound with dermal wound cleanser and gauze. 2. Apply Mepilex Border dressing Wound Care will complete the consult at this time. If there are further issues please re-consult via eD-H. Discussed plan with: RN: Ulices Please contact Thi Saravia RN on eD secure chat or the wound care team on pager [phone] with skin and wound care concerns or questions. * Plan of Care - Ruby Head RN - 12/19/2023 7:28 AM EDT OUTCOME EVALUATION NOTE: OUTCOME SUMMARY: AOx4, 2L NC, VSS, on telemetry doing NSR, SBA, continent and uses urinal provided. Had dialysis yesterday and 3L taken. C/P the whole night and pain meds given as well as scheduled meds based on MAR.Assessment done and charted, and noted redness at the sacral /coccyx area blanchable, possibly pressure injury. Patient q 2 hrs turn but had difficulty turning due to pain. Able to make one lap within the unit. CPAP started last night due to persistent desat to 71% hence referred to team and ordered cpap. Encourage patient to ambulate more and sit to edge of bed more than lying down. PLAN MOVING FORWARD: Mobilize Titrate Oxygen Pain mgt Diuresis Wound consult INDIVIDUALIZED FALL PREVENTION INTERVENTIONS: Patient-specific fall risk factors per assessment: [current deficits]: Hosp setting, tubings, weakness Assistance [level of assistance required for transfers and ambulation]: SBA Supervision [direct monitoring required during toileting and ADLs]: eyes on Surveillance [continuous indirect monitoring]: Masimo, Tele, Bed alarm Patient-specific fall prevention interventions for sensory deficits provided, if applicable: [X] No CPG GOAL OUTCOME EVALUATION: Problem: Adult Inpatient Plan of Care Goal: Plan of Care Review Outcome: Ongoing (Interventions Implemented as Appropriate) Goal: Patient-Specific Goal (Individualized) Outcome: Ongoing (Interventions Implemented as Appropriate) Goal: Absence of Hospital-Acquired Illness or Injury Outcome: Ongoing (Interventions Implemented as Appropriate) Goal: Optimal Comfort and Wellbeing Outcome: Ongoing (Interventions Implemented as Appropriate) Goal: Readiness for Transition of Care Outcome: Ongoing (Interventions Implemented as Appropriate) Problem: Pain Acute Goal: Acceptable Pain Control and Functional Ability Outcome: Ongoing (Interventions Implemented as Appropriate) Problem: Infection Goal: Absence of Infection Signs and Symptoms Outcome: Ongoing (Interventions Implemented as Appropriate) Problem: Fall Injury Risk Goal: Absence of Fall and Fall-Related Injury Outcome: Ongoing (Interventions Implemented as Appropriate) Problem: Gas Exchange Impaired Goal: Optimal Gas Exchange Outcome: Ongoing (Interventions Implemented as Appropriate) Problem: Chest Pain Goal: Resolution of Chest Pain Symptoms Outcome: Ongoing (Interventions Implemented as Appropriate) Problem: Diabetes Comorbidity Goal: Blood Glucose Level Within Targeted Range Outcome: Ongoing (Interventions Implemented as Appropriate) Problem: Heart Failure Comorbidity Goal: Maintenance of Heart Failure Symptom Control Outcome: Ongoing (Interventions Implemented as Appropriate) Problem: Adjustment to Illness (Chronic Kidney Disease) Goal: Optimal Coping with Chronic Illness Outcome: Ongoing (Interventions Implemented as Appropriate) Problem: Electrolyte Imbalance (Chronic Kidney Disease) Goal: Electrolyte Balance Outcome: Ongoing (Interventions Implemented as Appropriate) Problem: Fluid Volume Excess (Chronic Kidney Disease) Goal: Fluid Balance Outcome: Ongoing (Interventions Implemented as Appropriate) Problem: Functional Decline (Chronic Kidney Disease) Goal: Optimal Functional Ability Outcome: Ongoing (Interventions Implemented as Appropriate) Problem: Hematologic Alteration (Chronic Kidney Disease) Goal: Absence of Anemia Signs/Symptoms Outcome: Ongoing (Interventions Implemented as Appropriate) Problem: Oral Intake Inadequate (Chronic Kidney Disease) Goal: Optimal Oral Intake Outcome: Ongoing (Interventions Implemented as Appropriate) Problem: Renal Function Impairment (Chronic Kidney Disease) Goal: Laboratory Values and Blood Pressure Within Desired Range Outcome: Ongoing (Interventions Implemented as Appropriate) Problem: Skin Injury Risk Increased Goal: Skin Health and Integrity Outcome: Ongoing (Interventions Implemented as Appropriate) * Plan of Care - Vahe Johnson RN - 12/18/2023 6:57 PM EDTSummary: Patient complained of some pain at his tunneled cath site with positive relief from dilaudid, patient tolerated dialysis well today, 2-3 walks today Problem: Adult Inpatient Plan of Care Goal: Plan of Care Review Outcome: Ongoing (Interventions Implemented as Appropriate) Goal: Patient-Specific Goal (Individualized) Outcome: Ongoing (Interventions Implemented as Appropriate) Goal: Absence of Hospital-Acquired Illness or Injury Outcome: Ongoing (Interventions Implemented as Appropriate) Goal: Optimal Comfort and Wellbeing Outcome: Ongoing (Interventions Implemented as Appropriate) Goal: Readiness for Transition of Care Outcome: Ongoing (Interventions Implemented as Appropriate) Problem: Pain Acute Goal: Acceptable Pain Control and Functional Ability Outcome: Ongoing (Interventions Implemented as Appropriate) Problem: Infection Goal: Absence of Infection Signs and Symptoms Outcome: Ongoing (Interventions Implemented as Appropriate) Problem: Fall Injury Risk Goal: Absence of Fall and Fall-Related Injury Outcome: Ongoing (Interventions Implemented as Appropriate) Problem: Gas Exchange Impaired Goal: Optimal Gas Exchange Outcome: Ongoing (Interventions Implemented as Appropriate) Problem: Chest Pain Goal: Resolution of Chest Pain Symptoms Outcome: Ongoing (Interventions Implemented as Appropriate) Problem: Diabetes Comorbidity Goal: Blood Glucose Level Within Targeted Range Outcome: Ongoing (Interventions Implemented as Appropriate) Problem: Heart Failure Comorbidity Goal: Maintenance of Heart Failure Symptom Control Outcome: Ongoing (Interventions Implemented as Appropriate) Problem: Adjustment to Illness (Chronic Kidney Disease) Goal: Optimal Coping with Chronic Illness Outcome: Ongoing (Interventions Implemented as Appropriate) Problem: Electrolyte Imbalance (Chronic Kidney Disease) Goal: Electrolyte Balance Outcome: Ongoing (Interventions Implemented as Appropriate) Problem: Fluid Volume Excess (Chronic Kidney Disease) Goal: Fluid Balance Outcome: Ongoing (Interventions Implemented as Appropriate) Problem: Functional Decline (Chronic Kidney Disease) Goal: Optimal Functional Ability Outcome: Ongoing (Interventions Implemented as Appropriate) Problem: Hematologic Alteration (Chronic Kidney Disease) Goal: Absence of Anemia Signs/Symptoms Outcome: Ongoing (Interventions Implemented as Appropriate) Problem: Oral Intake Inadequate (Chronic Kidney Disease) Goal: Optimal Oral Intake Outcome: Ongoing (Interventions Implemented as Appropriate) Problem: Renal Function Impairment (Chronic Kidney Disease) Goal: Laboratory Values and Blood Pressure Within Desired Range Outcome: Ongoing (Interventions Implemented as Appropriate) * Care Management - Becky Arellano RN - 12/18/2023 11:53 AM EDT OFFICE OF CARE MANAGEMENT PROGRESS NOTE LOS: Hospital Day 8 days Chart reviewed, care reviewed with primary team and at interdisciplinary rounds. Medical Decision Maker: Self Financial Decision Maker: Self Functional status prior to admission: Independent Home Environment: Others in the home: spouse, pet(s) (, Alina and 1 cat). Current Living Arrangements: home/apartment/condo. Accessibility Concerns: Second floor apartment.. Current Functional Ability: Independent DME used at home: none DME Needed at Discharge: No Patient is insured through: Primary Insurance: [employer] [facility] Payor: [facility] / Plan: [facility] SH[facility] / Product Type: *No Product type* / Secondary Insurance: N/A Last Physical Therapy Recommendation: home with home health with None (he has a rolling walker @ home) Last Occupational Therapy Recommendation: acute rehabilitation facility with to be determined Plan for discharge is: Pending Hospital Course and PT/OT Recommendations *Patient wants to go home with [facility] Outpatient Agency/Support Group Needs: None Home Health Services: Physical Therapy, Occupational Therapy, Registered Nurse Agency Referrals: Discharge Planning for Dialysis Hayden Russo [address] [phone] (home) Telephone Information: Satellite Dish Installer: Dr. Copeland Satellite Dish Installer Requested Clinic: [address] [address] [facility] Renal Dialysis Unit [address] [place] [address] [address] First date of dialysis: 12/12/2023 Estimated Start Date: Schedule Preference: Monday, , Monday Diagnosis: End Stage Renal Disease (ESRD - Stage 5 Chronic Kidney Disease) Where will this patient be discharged to? Home Has the patient tested positive (+) for COVID-19? No Has the patient come in contact with an individual that has tested COVID-19 positive (+)? No Does the patient have any symptoms related to COVID-19 (i.e. high fever, dry cough)? No Is patient able to sign his/her own legal consents? Yes Does this patient have a current or previous out-patient dialysis history? No Is this patient trach or vent dependent? No Does this patient have an L-VAD or Life Vest? No Does patient receive continuous medications via infusion pump? Yes Is this patient ambulatory? Yes Can this patient sit in a standard chair to dialyze? Yes Is patient morbidly obese? Yes Is patient HEP B positive? No Is patient receiving the Hepatitis B immunization series? No Is patient infected with: Cinthya Auris, VRE, C. Diff, or other Multi-Drug Resistant Organism? No Is patient known to have other relevant clinical/health problems? Yes Transportation plan to and from HD: Patient drives self/family members. Note routed to a Marketing Underwriter who will communicate referrals to facilities and provide any required information. Transportation: family or friend will provide Barriers to discharge: Global: None Plan: Patient is not medically ready related to: Requiring Dialysis. Plan going forward is: Referral placed for dialysis outpatient chair. Anticipated Date of Discharge: 12/21/2023 Becky Arellano RN CM Software Architect- Medicine Office of Care Management Ext: [phone] Pager: [phone] * Consult Note - Thi Saravia RN - 12/18/2023 10:51 AM EDT Wound Care Nurse Rounding Note Situation: Asked to see Hayden Tremaine Napierrita for pressure ulcer prevention Background: eD-H notes reviewed for history, admitting diagnosis and active problem list. Rounded on patient, discussed patient with RN. Reviewed assessment of all bony prominences and under devices for pressure ulcer development, ability to turn/reposition and if there are any barriers due to patient condition for routine care, turning schedules and or pressure ulcer prevention. ? Issues/concerns identified: Per primary RN, no pressure skin concerns at this time. Patient is up walking and turning independently in bed. No documentation of wounds or skin injuries either. ? Current Wound Care Recommendations reviewed: Follow hospital standard for pressure injury prevention and skin care. Refer to adult/pediatric pressure ulcer prevention job aid in the clinical policy library. ? Wound Care will complete the consult at this time. If there are further issues please re-consult via eD-H. ? Discussed with RN: Vahe ? Please secure chat Thi Saravia RN or page the wound care team at [phone] with skin and wound care concerns or questions. * Plan of Care - Kamala Baeza RN - 12/18/2023 2:55 AM EDT OUTCOME EVALUATION NOTE: OUTCOME SUMMARY: Report called to Carol SHARPE at 0027 for transfer. All belongings packed up and sent with patient including cell phone, instructor programmable controllers and glasses. Patient aware and agreeable to plan. Patient arrived to unit at 0250 with RN and transport on portable monitor. Medications handed off to bedside RN. Patient oriented x4 and follows safety commands appropriately. Patient restless at times with frequent call tenorio use. Vital signs every 4 hours per orders. NSR on the monitor with stable blood pressures. Generalized edema 1-2+. Patient on 1-2L nasal cannula at night for SWAPNIL. Renal diet maintained and swallows pills whole. ACHS blood sugar checks. Last BM 12/16 in bathroom. Urinal at bedside. Patient endorses continued pain in right shoulder pain at HD catheter site 08/29. Right chest HD catheterintact with no new signs of bleeding. Team aware and sutures removed 12/16 to help with pressure. 1peripheral IV maintained. Morning labs obtained. PLAN MOVING FORWARD: -HD today 12/17 -PT/OT; ambulation encouraged CARE PLAN GOAL OUTCOME EVALUATION: Problem: Adult Inpatient Plan of Care Goal: Plan of Care Review Outcome: Ongoing (Interventions Implemented as Appropriate) Goal: Patient-Specific Goal (Individualized) Outcome: Ongoing (Interventions Implemented as Appropriate) Goal: Absence of Hospital-Acquired Illness or Injury Outcome: Ongoing (Interventions Implemented as Appropriate) Goal: Optimal Comfort and Wellbeing Outcome: Ongoing (Interventions Implemented as Appropriate) Goal: Readiness for Transition of Care Outcome: Ongoing (Interventions Implemented as Appropriate) Problem: Pain Acute Goal: Acceptable Pain Control and Functional Ability Outcome: Ongoing (Interventions Implemented as Appropriate) Problem: Infection Goal: Absence of Infection Signs and Symptoms Outcome: Ongoing (Interventions Implemented as Appropriate) Problem: Fall Injury Risk Goal: Absence of Fall and Fall-Related Injury Outcome: Ongoing (Interventions Implemented as Appropriate) Problem: Gas Exchange Impaired Goal: Optimal Gas Exchange Outcome: Ongoing (Interventions Implemented as Appropriate) Problem: Chest Pain Goal: Resolution of Chest Pain Symptoms Outcome: Ongoing (Interventions Implemented as Appropriate) Problem: Diabetes Comorbidity Goal: Blood Glucose Level Within Targeted Range Outcome: Ongoing (Interventions Implemented as Appropriate) Problem: Heart Failure Comorbidity Goal: Maintenance of Heart Failure Symptom Control Outcome: Ongoing (Interventions Implemented as Appropriate) Problem: Adjustment to Illness (Chronic Kidney Disease) Goal: Optimal Coping with Chronic Illness Outcome: Ongoing (Interventions Implemented as Appropriate) Problem: Electrolyte Imbalance (Chronic Kidney Disease) Goal: Electrolyte Balance Outcome: Ongoing (Interventions Implemented as Appropriate) Problem: Fluid Volume Excess (Chronic Kidney Disease) Goal: Fluid Balance Outcome: Ongoing (Interventions Implemented as Appropriate) Problem: Functional Decline (Chronic Kidney Disease) Goal: Optimal Functional Ability Outcome: Ongoing (Interventions Implemented as Appropriate) Problem: Hematologic Alteration (Chronic Kidney Disease) Goal: Absence of Anemia Signs/Symptoms Outcome: Ongoing (Interventions Implemented as Appropriate) Problem: Oral Intake Inadequate (Chronic Kidney Disease) Goal: Optimal Oral Intake Outcome: Ongoing (Interventions Implemented as Appropriate) Problem: Renal Function Impairment (Chronic Kidney Disease) Goal: Laboratory Values and Blood Pressure Within Desired Range Outcome: Ongoing (Interventions Implemented as Appropriate) * Plan of Care - Antoni Aguilar RN - 12/17/2023 7:31 PM EDT Pt AOx4, VSS on 2L NC. Ambulating multiple times this shift with walker and SBA. Tolerating ambulation well. Tolerating diet. No BM this shift, +flatus. Voiding in urinal. Pain uncontrolled in R shoulder around HD cath site, team aware. IR at bedside to remove stitch from 2 days prior. Bed in low/locked position, call tenorio within reach, nonskid footwear when OOB. Problem: Adult Inpatient Plan of Care Goal: Plan of Care Review Outcome: Ongoing (Interventions Implemented as Appropriate) Goal: Patient-Specific Goal (Individualized) Outcome: Ongoing (Interventions Implemented as Appropriate) Goal: Absence of Hospital-Acquired Illness or Injury Outcome: Ongoing (Interventions Implemented as Appropriate) Goal: Optimal Comfort and Wellbeing Outcome: Ongoing (Interventions Implemented as Appropriate) Goal: Readiness for Transition of Care Outcome: Ongoing (Interventions Implemented as Appropriate) Problem: Pain Acute Goal: Acceptable Pain Control and Functional Ability Outcome: Ongoing (Interventions Implemented as Appropriate) Problem: Infection Goal: Absence of Infection Signs and Symptoms Outcome: Ongoing (Interventions Implemented as Appropriate) Problem: Fall Injury Risk Goal: Absence of Fall and Fall-Related Injury Outcome: Ongoing (Interventions Implemented as Appropriate) Problem: Gas Exchange Impaired Goal: Optimal Gas Exchange Outcome: Ongoing (Interventions Implemented as Appropriate) Problem: Chest Pain Goal: Resolution of Chest Pain Symptoms Outcome: Ongoing (Interventions Implemented as Appropriate) Problem: Diabetes Comorbidity Goal: Blood Glucose Level Within Targeted Range Outcome: Ongoing (Interventions Implemented as Appropriate) Problem: Heart Failure Comorbidity Goal: Maintenance of Heart Failure Symptom Control Outcome: Ongoing (Interventions Implemented as Appropriate) Problem: Adjustment to Illness (Chronic Kidney Disease) Goal: Optimal Coping with Chronic Illness Outcome: Ongoing (Interventions Implemented as Appropriate) Problem: Electrolyte Imbalance (Chronic Kidney Disease) Goal: Electrolyte Balance Outcome: Ongoing (Interventions Implemented as Appropriate) Problem: Fluid Volume Excess (Chronic Kidney Disease) Goal: Fluid Balance Outcome: Ongoing (Interventions Implemented as Appropriate) Problem: Functional Decline (Chronic Kidney Disease) Goal: Optimal Functional Ability Outcome: Ongoing (Interventions Implemented as Appropriate) Problem: Hematologic Alteration (Chronic Kidney Disease) Goal: Absence of Anemia Signs/Symptoms Outcome: Ongoing (Interventions Implemented as Appropriate) Problem: Oral Intake Inadequate (Chronic Kidney Disease) Goal: Optimal Oral Intake Outcome: Ongoing (Interventions Implemented as Appropriate) Problem: Renal Function Impairment (Chronic Kidney Disease) Goal: Laboratory Values and Blood Pressure Within Desired Range Outcome: Ongoing (Interventions Implemented as Appropriate) * Plan of Care - Kamala Baeza RN - 12/17/2023 6:25 AM EDT OUTCOME EVALUATION NOTE: OUTCOME SUMMARY: Patient oriented x4 and follows safety commands appropriately. Patient more restless overnight withfrequent call tenorio use; roomed in overnight. Vital signs every 4 hours per orders. NSR on the monitor with stable blood pressures. Generalized edema 1+; improved from yesterday. Patient on 1-2L nasal cannula with fine crackles auscultated in the bases. Sleep apnea noted overnight. Renal diet maintained and swallows pills whole. ACHS blood sugar checks. Last BM 12/15 in bathroom. Patient doesendorse constipation. Urinal at bedside. Patient endorses worsening pain right shoulder pain at HD catheter site 09/29. Denilson notified of change at 0130 then again at 0451; Xray obtained, Lidocaine patch applied, Dilaudid administered with little affect then Tylenol IV administered with improvement;pain /10. 1 peripheral IV maintained. Right chest HD catheter intact with no new signs of bleeding. Morning labs obtained. PLAN MOVING FORWARD: -assess HD catheter further and reason for increased pain? -No plans for HD over the weekend -PT/OT; ambulation encouraged Latest Reference Range & Units 12/17/23 02:37 Sodium 135 - 145 mMol/L 140 Potassium 3.5 - 5.0 mMol/L 3.9 Chloride 98 - 107 mMol/L 102 Carbon Dioxide 22 - 31 mMol/L 28 Anion Gap 5 - 15 mMol/L 10 Blood Urea Nitrogen 10 - 20 mg/dL 42 (H) Creatinine 0.80 - 1.50 mg/dL 2.81 (H) Est Glomerular Filtration Rate - Male mL/min/1.73 m?? 27 Calcium 8.5 - 10.5 mg/dL 8.8 CARE PLAN GOAL OUTCOME EVALUATION: Problem: Adult Inpatient Plan of Care Goal: Plan of Care Review 12/17/2023624 by Kamala Baeza RN Outcome: Ongoing (Interventions Implemented as Appropriate) 12/17/2023624 by Kamala Baeza RN Outcome: Ongoing (Interventions Implemented as Appropriate) Goal: Patient-Specific Goal (Individualized) 12/17/2023624 by Kamala Baeza RN Outcome: Ongoing (Interventions Implemented as Appropriate) 12/17/2023624 by Kamala Baeza RN Outcome: Ongoing (Interventions Implemented as Appropriate) Goal: Absence of Hospital-Acquired Illness or Injury 12/17/2023624 by Kamala Baeza RN Outcome: Ongoing (Interventions Implemented as Appropriate) 12/17/2023624 by Kamala Baeza RN Outcome: Ongoing (Interventions Implemented as Appropriate) Goal: Optimal Comfort and Wellbeing 12/17/2023624 by Kamala Baeza RN Outcome: Ongoing (Interventions Implemented as Appropriate) 12/17/2023624 by Kamala Baeza RN Outcome: Ongoing (Interventions Implemented as Appropriate) Goal: Readiness for Transition of Care 12/17/2023624 by Kamala Baeza RN Outcome: Ongoing (Interventions Implemented as Appropriate) 12/17/2023624 by Kamala Baeza RN Outcome: Ongoing (Interventions Implemented as Appropriate) Problem: Pain Acute Goal: Acceptable Pain Control and Functional Ability 12/17/2023624 by Kamala Baeza RN Outcome: Ongoing (Interventions Implemented as Appropriate) 12/17/2023624 by Kamala Baeza RN Outcome: Ongoing (Interventions Implemented as Appropriate) Problem: Infection Goal: Absence of Infection Signs and Symptoms 12/17/2023624 by Kamala Baeza RN Outcome: Ongoing (Interventions Implemented as Appropriate) 12/17/2023624 by Kamala Baeza RN Outcome: Ongoing (Interventions Implemented as Appropriate) Problem: Fall Injury Risk Goal: Absence of Fall and Fall-Related Injury 12/17/2023624 by Kamala Baeza RN Outcome: Ongoing (Interventions Implemented as Appropriate) 12/17/2023624 by Kamala Baeza RN Outcome: Ongoing (Interventions Implemented as Appropriate) Problem: Gas Exchange Impaired Goal: Optimal Gas Exchange 12/17/2023624 by Kamala Baeza RN Outcome: Ongoing (Interventions Implemented as Appropriate) 12/17/2023624 by Kamala Baeza RN Outcome: Ongoing (Interventions Implemented as Appropriate) Problem: Chest Pain Goal: Resolution of Chest Pain Symptoms 12/17/2023624 by Kamala Baeza RN Outcome: Ongoing (Interventions Implemented as Appropriate) 12/17/2023624 by Kamala Baeza RN Outcome: Ongoing (Interventions Implemented as Appropriate) Problem: Diabetes Comorbidity Goal: Blood Glucose Level Within Targeted Range 12/17/2023624 by Kamala Baeza RN Outcome: Ongoing (Interventions Implemented as Appropriate) 12/17/2023624 by Kamala Baeza RN Outcome: Ongoing (Interventions Implemented as Appropriate) Problem: Heart Failure Comorbidity Goal: Maintenance of Heart Failure Symptom Control 12/17/2023624 by Kamala Baeza RN Outcome: Ongoing (Interventions Implemented as Appropriate) 12/17/2023624 by Kamala Baeza RN Outcome: Ongoing (Interventions Implemented as Appropriate) Problem: Adjustment to Illness (Chronic Kidney Disease) Goal: Optimal Coping with Chronic Illness 12/17/2023624 by Kamala Baeza RN Outcome: Ongoing (Interventions Implemented as Appropriate) 12/17/2023624 by Kamala Baeza RN Outcome: Ongoing (Interventions Implemented as Appropriate) Problem: Electrolyte Imbalance (Chronic Kidney Disease) Goal: Electrolyte Balance 12/17/2023624 by Kamala Baeza RN Outcome: Ongoing (Interventions Implemented as Appropriate) 12/17/2023624 by Kamala Baeza RN Outcome: Ongoing (Interventions Implemented as Appropriate) Problem: Fluid Volume Excess (Chronic Kidney Disease) Goal: Fluid Balance 12/17/2023624 by Kamala Baeza RN Outcome: Ongoing (Interventions Implemented as Appropriate) 12/17/2023624 by Kamala Baeza RN Outcome: Ongoing (Interventions Implemented as Appropriate) Problem: Functional Decline (Chronic Kidney Disease) Goal: Optimal Functional Ability 12/17/2023624 by Kamala Baeza RN Outcome: Ongoing (Interventions Implemented as Appropriate) 12/17/2023624 by Kamala Baeza RN Outcome: Ongoing (Interventions Implemented as Appropriate) Problem: Hematologic Alteration (Chronic Kidney Disease) Goal: Absence of Anemia Signs/Symptoms 12/17/2023624 by Kamala Baeza RN Outcome: Ongoing (Interventions Implemented as Appropriate) 12/17/2023624 by Kamala Baeza RN Outcome: Ongoing (Interventions Implemented as Appropriate) Problem: Oral Intake Inadequate (Chronic Kidney Disease) Goal: Optimal Oral Intake 12/17/2023624 by Kamala Baeza RN Outcome: Ongoing (Interventions Implemented as Appropriate) 12/17/2023624 by Kamala Baeza RN Outcome: Ongoing (Interventions Implemented as Appropriate) Problem: Renal Function Impairment (Chronic Kidney Disease) Goal: Laboratory Values and Blood Pressure Within Desired Range 12/17/2023624 by Kamala Baeza RN Outcome: Ongoing (Interventions Implemented as Appropriate) 12/17/2023624 by Kamala Baeza RN Outcome: Ongoing (Interventions Implemented as Appropriate) * Plan of Care - Kamala Baeza RN - 12/16/2023 4:40 AM EDT OUTCOME EVALUATION NOTE: OUTCOME SUMMARY: Patient oriented x4 and follows safety commands appropriately. Patient more restless overnight withfrequent call tenorio use; roomed in overnight. Vital signs every 4 hours. NSR on the monitor with stable blood pressures. Generalized edema 2+; improved from yesterday. Patient on 2L nasal cannulawith fine crackles auscultated in the bases. Sleep apnea noted overnight. Renal diet maintained andswallows pills whole. ACHS blood sugar checks. Last BM 12/14 in bathroom. Patient does endorse constipation; Miralax administered. Todd maintained per orders with adequate output. Patient endorses leg pain, right shoulder pain and restlessness; PRNs administered with fair affect. 1 peripheral IVmaintained. Right chest HD catheter intact with no new signs of bleeding. Morning labs obtained. PLAN MOVING FORWARD: -No plans for HD over the weekend -PT/OT; ambulation -monitor labs with HD being held through the weekend Latest Reference Range & Units 12/16/23 01:13 Sodium 135 - 145 mMol/L 137 Potassium 3.5 - 5.0 mMol/L 4.0 Chloride 98 - 107 mMol/L 100 Carbon Dioxide 22 - 31 mMol/L 28 Anion Gap 5 - 15 mMol/L 9 Blood Urea Nitrogen 10 - 20 mg/dL 32 (H) Creatinine 0.80 - 1.50 mg/dL 2.31 (H) CARE PLAN GOAL OUTCOME EVALUATION: Problem: Adult Inpatient Plan of Care Goal: Plan of Care Review Outcome: Ongoing (Interventions Implemented as Appropriate) Goal: Patient-Specific Goal (Individualized) Outcome: Ongoing (Interventions Implemented as Appropriate) Goal: Absence of Hospital-Acquired Illness or Injury Outcome: Ongoing (Interventions Implemented as Appropriate) Goal: Optimal Comfort and Wellbeing Outcome: Ongoing (Interventions Implemented as Appropriate) Goal: Readiness for Transition of Care Outcome: Ongoing (Interventions Implemented as Appropriate) Problem: Pain Acute Goal: Acceptable Pain Control and Functional Ability Outcome: Ongoing (Interventions Implemented as Appropriate) Problem: Infection Goal: Absence of Infection Signs and Symptoms Outcome: Ongoing (Interventions Implemented as Appropriate) Problem: Fall Injury Risk Goal: Absence of Fall and Fall-Related Injury Outcome: Ongoing (Interventions Implemented as Appropriate) Problem: Gas Exchange Impaired Goal: Optimal Gas Exchange Outcome: Ongoing (Interventions Implemented as Appropriate) Problem: Chest Pain Goal: Resolution of Chest Pain Symptoms Outcome: Ongoing (Interventions Implemented as Appropriate) Problem: Diabetes Comorbidity Goal: Blood Glucose Level Within Targeted Range Outcome: Ongoing (Interventions Implemented as Appropriate) Problem: Heart Failure Comorbidity Goal: Maintenance of Heart Failure Symptom Control Outcome: Ongoing (Interventions Implemented as Appropriate) Problem: Adjustment to Illness (Chronic Kidney Disease) Goal: Optimal Coping with Chronic Illness Outcome: Ongoing (Interventions Implemented as Appropriate) Problem: Electrolyte Imbalance (Chronic Kidney Disease) Goal: Electrolyte Balance Outcome: Ongoing (Interventions Implemented as Appropriate) Problem: Fluid Volume Excess (Chronic Kidney Disease) Goal: Fluid Balance Outcome: Ongoing (Interventions Implemented as Appropriate) Problem: Functional Decline (Chronic Kidney Disease) Goal: Optimal Functional Ability Outcome: Ongoing (Interventions Implemented as Appropriate) Problem: Hematologic Alteration (Chronic Kidney Disease) Goal: Absence of Anemia Signs/Symptoms Outcome: Ongoing (Interventions Implemented as Appropriate) Problem: Oral Intake Inadequate (Chronic Kidney Disease) Goal: Optimal Oral Intake Outcome: Ongoing (Interventions Implemented as Appropriate) Problem: Renal Function Impairment (Chronic Kidney Disease) Goal: Laboratory Values and Blood Pressure Within Desired Range Outcome: Ongoing (Interventions Implemented as Appropriate) * Plan of Care - Hailey Oh RN - 12/15/2023 6:32 PM EDT OUTCOME EVALUATION NOTE: OUTCOME SUMMARY: Patient alert and oriented X4, in normal sinus rhythm and vitals stable. Patient did receive when dialysis today and 3.5 liters where removed. Patient tolerated well. Spouse is at bed side, attentive and involved in care. Patient does complain of leg pain and provider was notified. Was given tyenelol and dilaudid. Stillcomplains of leg pain ranging from 6-7. Patient was downgraded to step- down but still require tele- monitoring per provider. PLAN MOVING FORWARD: Plan moving forward will be to continue to monitor vitals, Prepare for discharge, monitor dialysis access. INDIVIDUALIZED FALL PREVENTION INTERVENTIONS: Patient-specific fall risk factors per assessment: [current deficits]: General weakness Edema Assistance [level of assistance required for transfers and ambulation]: 2 Assist Walker Surveillance [continuous indirect monitoring]: Telemetry Pulse Ox CARE PLAN GOAL OUTCOME EVALUATION: Problem: Adult Inpatient Plan of Care Goal: Plan of Care Review Outcome: Ongoing (Interventions Implemented as Appropriate) Goal: Patient-Specific Goal (Individualized) Outcome: Ongoing (Interventions Implemented as Appropriate) Goal: Absence of Hospital-Acquired Illness or Injury Outcome: Ongoing (Interventions Implemented as Appropriate) Goal: Optimal Comfort and Wellbeing Outcome: Ongoing (Interventions Implemented as Appropriate) Goal: Readiness for Transition of Care Outcome: Ongoing (Interventions Implemented as Appropriate) Problem: Pain Acute Goal: Acceptable Pain Control and Functional Ability Outcome: Ongoing (Interventions Implemented as Appropriate) Problem: Infection Goal: Absence of Infection Signs and Symptoms Outcome: Ongoing (Interventions Implemented as Appropriate) Problem: Fall Injury Risk Goal: Absence of Fall and Fall-Related Injury Outcome: Ongoing (Interventions Implemented as Appropriate) Problem: Gas Exchange Impaired Goal: Optimal Gas Exchange Outcome: Ongoing (Interventions Implemented as Appropriate) Problem: Chest Pain Goal: Resolution of Chest Pain Symptoms Outcome: Ongoing (Interventions Implemented as Appropriate) Problem: Diabetes Comorbidity Goal: Blood Glucose Level Within Targeted Range Outcome: Ongoing (Interventions Implemented as Appropriate) Problem: Heart Failure Comorbidity Goal: Maintenance of Heart Failure Symptom Control Outcome: Ongoing (Interventions Implemented as Appropriate) Problem: Adjustment to Illness (Chronic Kidney Disease) Goal: Optimal Coping with Chronic Illness Outcome: Ongoing (Interventions Implemented as Appropriate) Problem: Electrolyte Imbalance (Chronic Kidney Disease) Goal: Electrolyte Balance Outcome: Ongoing (Interventions Implemented as Appropriate) Problem: Fluid Volume Excess (Chronic Kidney Disease) Goal: Fluid Balance Outcome: Ongoing (Interventions Implemented as Appropriate) Problem: Functional Decline (Chronic Kidney Disease) Goal: Optimal Functional Ability Outcome: Ongoing (Interventions Implemented as Appropriate) Problem: Hematologic Alteration (Chronic Kidney Disease) Goal: Absence of Anemia Signs/Symptoms Outcome: Ongoing (Interventions Implemented as Appropriate) Problem: Oral Intake Inadequate (Chronic Kidney Disease) Goal: Optimal Oral Intake Outcome: Ongoing (Interventions Implemented as Appropriate) Problem: Renal Function Impairment (Chronic Kidney Disease) Goal: Laboratory Values and Blood Pressure Within Desired Range Outcome: Ongoing (Interventions Implemented as Appropriate) * Consult Note - Kyra Isabel RN - 12/15/2023 4:23 PM EDT Certified Wound Care Nurse Note: Attempted to see patient at 1520, patient was in dialysis. Wound Care will follow up an another time. * Plan of Care - Kamala Baeza RN - 12/15/2023 5:23 AM EDT OUTCOME EVALUATION NOTE: OUTCOME SUMMARY: Patient oriented x4 and follows safety commands appropriately. Vital signs every 4 hours. NSR on the monitor with stable blood pressures. Generalized edema 2-3+. Patient on 2-3L nasal cannula with crackles auscultated in the bases. Sleep apnea noted overnight. Renal diet maintained and swallows pills whole. ACHS blood sugar checks. Last BM 12/13 on BSC. Todd maintained per orders with adequate output. Patient endorses leg pain and restlessness; PRNs administered with good affect. 1 peripheral IV maintained. Right chest HD catheter intact with no new signs of bleeding. Morning labs obtained. PLAN MOVING FORWARD: - HD around noon today Latest Reference Range & Units 12/15/23 02:16 White Blood Cell 4.00 - 9.50 x10(3)/mcL 7.76 Red Blood Cell 4.58 - 5.54 x10(6)/mcL 3.68 (L) Hemoglobin 13.7 - 16.5 g/dL 8.0 (L) Hematocrit 40.5 - 48.5 % 27.6 (L) Platelet 145 - 357 x10(3)/mcL 158 Latest Reference Range & Units 12/15/23 02:16 Sodium 135 - 145 mMol/L 141 Potassium 3.5 - 5.0 mMol/L 4.2 Chloride 98 - 107 mMol/L 105 Carbon Dioxide 22 - 31 mMol/L 27 Anion Gap 5 - 15 mMol/L 9 Blood Urea Nitrogen 10 - 20 mg/dL 37 (H) Creatinine 0.80 - 1.50 mg/dL 2.62 (H) CARE PLAN GOAL OUTCOME EVALUATION: Problem: Pain Acute Goal: Acceptable Pain Control and Functional Ability Outcome: Ongoing (Interventions Implemented as Appropriate) Problem: Infection Goal: Absence of Infection Signs and Symptoms Outcome: Ongoing (Interventions Implemented as Appropriate) Problem: Gas Exchange Impaired Goal: Optimal Gas Exchange Outcome: Ongoing (Interventions Implemented as Appropriate) Problem: Chest Pain Goal: Resolution of Chest Pain Symptoms Outcome: Ongoing (Interventions Implemented as Appropriate) Problem: Heart Failure Comorbidity Goal: Maintenance of Heart Failure Symptom Control Outcome: Ongoing (Interventions Implemented as Appropriate) Problem: Electrolyte Imbalance (Chronic Kidney Disease) Goal: Electrolyte Balance Outcome: Ongoing (Interventions Implemented as Appropriate) Problem: Fluid Volume Excess (Chronic Kidney Disease) Goal: Fluid Balance Outcome: Ongoing (Interventions Implemented as Appropriate) Problem: Oral Intake Inadequate (Chronic Kidney Disease) Goal: Optimal Oral Intake Outcome: Ongoing (Interventions Implemented as Appropriate) Problem: Renal Function Impairment (Chronic Kidney Disease) Goal: Laboratory Values and Blood Pressure Within Desired Range Outcome: Ongoing (Interventions Implemented as Appropriate) * Plan of Care - Matias York MD - 12/14/2023 4:07 PM EDT Department of Cardiology Family Program Specialist Advice Note This note represents informal advice provided to the primary team, as specifically requested. I have reviewed the relevant data with the requesting team. This patient was not seen or examined and will not be staffed as a consult with an attending Lead Accountant. Hayden Russo is a 48 y.o. male admitted on 2023 with past medical history of STEMI (treated with primary PCI in 2019), CKD (baseline Cr ~2.5, previously required renal replacement therapy with CVVH), recent CABG with Dr. Dutta 11/13, DMII admitted on 2023 (Hospital Day 2 days) for HF exacerbation. Cardiology was asked to comment on triple therapy. The patient's apixaban was held due to bleeding from a line site. I am told the bleeding is now controlled and stable. Based on the above, I would recommend Eliquis and Plavix. It is reasonable to stop aspirin to mitigate bleed risk. If additional advice is needed, a formal Cardiology consultation should be called. Matias York MD Family Program Specialist * Care Management - Becky Arellano RN - 12/14/2023 11:27 AM EDT OFFICE OF CARE MANAGEMENT PROGRESS NOTE LOS: Hospital Day 4 days Chart reviewed, care reviewed with primary team and at interdisciplinary rounds. Patient continues to meet inpatient level of care related to: HFpEF and DONAL Medical Decision Maker: Self Financial Decision Maker: Self Functional status prior to admission: Independent Home Environment: Others in the home: spouse, pet(s) (, Alina and 1 cat). Current Living Arrangements: home/apartment/condo. Accessibility Concerns: Second floor apartment.. Current Functional Ability: Independent DME used at home: none DME Needed at Discharge: No Patient is insured through: Primary Insurance: [facility] Payor: [facility] / [facility] / Product Type: *No Product type* / Secondary Insurance: N/A Last Physical Therapy Recommendation: swing bed rehabilitation facility (Swing vs Home w/ Home services based on progression) with None (Has cane walker & tub shower chair@ home) Last Occupational Therapy Recommendation: acute rehabilitation facility with to be determined Plan for discharge is: Pending Hospital Course and PT/OT Recommendations *Patient wants to go home with [facility] Outpatient Agency/Support Group Needs: None Home Health Services: Physical Therapy, Occupational Therapy, Registered Nurse Agency Referrals: The Patient has been provided a list of Home Health Agencies/DME vendors which serve their preferred geographic area. A letter describing our affiliations was reviewed with them and they were educated about their right to choose where referrals are placed. Provided patient with [facility] Star Quality Rating for Home care hand out. Patient requests referral to : [facility] - [facility] [address] [place] [address] and Ambrocio is a current patient at [facility] Referral routed to the Marketing Underwriter for matching with agency/vendor and to provide any required information. Transportation: family or friend will provide Barriers to discharge: Global: None Plan going forward: Continued medical management, per MD patient may not need swing as he improves. Anticipated Date of Discharge: 12/15/2023 Becky Arellano RN CM Software Architect- Medicine Office of Care Management Ext: [phone] Pager: [phone] * Plan of Care - Anitha Doherty RN - 12/14/2023 7:50 AM EDT Summary: VSS, afebrile. Neurologically intact. Received pt with continuous oozing on the incision site of the tunneled HD cath. Dr. Gunderson asked tos/e pt. Site cleased with NS, pat dry and kept clotted area intact. Syvek patch placed on top of pucture site and clotted area, then covered with gauze and medipore tape. sand bag placed for pressureas ordered by Dr. Gunderson. Dressing was good until 0400hr, started oozing continuously, Syvek patch and gauze reinforced. This morning at 0700hr, IR doctor came and sutured the site, with torniquet. Sterile dressing applied. Bleeding stopped. Plan: CPOC For HD today as ordred. Problem: Adult Inpatient Plan of Care Goal: Plan of Care Review Outcome: Ongoing (Interventions Implemented as Appropriate) Goal: Patient-Specific Goal (Individualized) Outcome: Ongoing (Interventions Implemented as Appropriate) Goal: Absence of Hospital-Acquired Illness or Injury Outcome: Ongoing (Interventions Implemented as Appropriate) Goal: Optimal Comfort and Wellbeing Outcome: Ongoing (Interventions Implemented as Appropriate) Goal: Readiness for Transition of Care Outcome: Ongoing (Interventions Implemented as Appropriate) Problem: Pain Acute Goal: Acceptable Pain Control and Functional Ability Outcome: Ongoing (Interventions Implemented as Appropriate) Problem: Infection Goal: Absence of Infection Signs and Symptoms Outcome: Ongoing (Interventions Implemented as Appropriate) Problem: Fall Injury Risk Goal: Absence of Fall and Fall-Related Injury Outcome: Ongoing (Interventions Implemented as Appropriate) Problem: Gas Exchange Impaired Goal: Optimal Gas Exchange Outcome: Ongoing (Interventions Implemented as Appropriate) Problem: Chest Pain Goal: Resolution of Chest Pain Symptoms Outcome: Ongoing (Interventions Implemented as Appropriate) Problem: Diabetes Comorbidity Goal: Blood Glucose Level Within Targeted Range Outcome: Ongoing (Interventions Implemented as Appropriate) Problem: Heart Failure Comorbidity Goal: Maintenance of Heart Failure Symptom Control Outcome: Ongoing (Interventions Implemented as Appropriate) Problem: Adjustment to Illness (Chronic Kidney Disease) Goal: Optimal Coping with Chronic Illness Outcome: Ongoing (Interventions Implemented as Appropriate) Problem: Electrolyte Imbalance (Chronic Kidney Disease) Goal: Electrolyte Balance Outcome: Ongoing (Interventions Implemented as Appropriate) Problem: Fluid Volume Excess (Chronic Kidney Disease) Goal: Fluid Balance Outcome: Ongoing (Interventions Implemented as Appropriate) Problem: Functional Decline (Chronic Kidney Disease) Goal: Optimal Functional Ability Outcome: Ongoing (Interventions Implemented as Appropriate) Problem: Hematologic Alteration (Chronic Kidney Disease) Goal: Absence of Anemia Signs/Symptoms Outcome: Ongoing (Interventions Implemented as Appropriate) Problem: Oral Intake Inadequate (Chronic Kidney Disease) Goal: Optimal Oral Intake Outcome: Ongoing (Interventions Implemented as Appropriate) Problem: Renal Function Impairment (Chronic Kidney Disease) Goal: Laboratory Values and Blood Pressure Within Desired Range Outcome: Ongoing (Interventions Implemented as Appropriate) * Plan of Care - Hailey Oh RN - 12/13/2023 6:32 PM EDT OUTCOME EVALUATION NOTE: OUTCOME SUMMARY: This morning, patient Hd access was sutured to combat bleeding that was occurring. Provider was notified of this an issue was resolved after several interventions. Patient is alert and oriented X4, and vitals signs stable. Patient did complain of leg pain throughout the day. Was administered tynelol, flexeril ,and morphine as last resort. Patient did experience some nose bleeds today and provider was notified. Patient did receive dialysis today and tolerated well with 2l liters removed. Dialysis is scheduledfor tomorrow. PLAN MOVING FORWARD: Monitor for any signs of bleeding from hd access and from nose. INDIVIDUALIZED FALL PREVENTION INTERVENTIONS: Patient-specific fall risk factors per assessment: [current deficits]: General weakness Assistance [level of assistance required for transfers and ambulation]: 2 Assist Surveillance [continuous indirect monitoring]: Pulse Ox Telemetry CARE PLAN GOAL OUTCOME EVALUATION: Problem: Adult Inpatient Plan of Care Goal: Plan of Care Review Outcome: Ongoing (Interventions Implemented as Appropriate) Goal: Patient-Specific Goal (Individualized) Outcome: Ongoing (Interventions Implemented as Appropriate) Goal: Absence of Hospital-Acquired Illness or Injury Outcome: Ongoing (Interventions Implemented as Appropriate) Goal: Optimal Comfort and Wellbeing Outcome: Ongoing (Interventions Implemented as Appropriate) Goal: Readiness for Transition of Care Outcome: Ongoing (Interventions Implemented as Appropriate) Problem: Pain Acute Goal: Acceptable Pain Control and Functional Ability Outcome: Ongoing (Interventions Implemented as Appropriate) Problem: Infection Goal: Absence of Infection Signs and Symptoms Outcome: Ongoing (Interventions Implemented as Appropriate) Problem: Fall Injury Risk Goal: Absence of Fall and Fall-Related Injury Outcome: Ongoing (Interventions Implemented as Appropriate) Problem: Gas Exchange Impaired Goal: Optimal Gas Exchange Outcome: Ongoing (Interventions Implemented as Appropriate) Problem: Chest Pain Goal: Resolution of Chest Pain Symptoms Outcome: Ongoing (Interventions Implemented as Appropriate) Problem: Diabetes Comorbidity Goal: Blood Glucose Level Within Targeted Range Outcome: Ongoing (Interventions Implemented as Appropriate) Problem: Heart Failure Comorbidity Goal: Maintenance of Heart Failure Symptom Control Outcome: Ongoing (Interventions Implemented as Appropriate) Problem: Adjustment to Illness (Chronic Kidney Disease) Goal: Optimal Coping with Chronic Illness Outcome: Ongoing (Interventions Implemented as Appropriate) Problem: Electrolyte Imbalance (Chronic Kidney Disease) Goal: Electrolyte Balance Outcome: Ongoing (Interventions Implemented as Appropriate) Problem: Fluid Volume Excess (Chronic Kidney Disease) Goal: Fluid Balance Outcome: Ongoing (Interventions Implemented as Appropriate) Problem: Functional Decline (Chronic Kidney Disease) Goal: Optimal Functional Ability Outcome: Ongoing (Interventions Implemented as Appropriate) Problem: Hematologic Alteration (Chronic Kidney Disease) Goal: Absence of Anemia Signs/Symptoms Outcome: Ongoing (Interventions Implemented as Appropriate) Problem: Oral Intake Inadequate (Chronic Kidney Disease) Goal: Optimal Oral Intake Outcome: Ongoing (Interventions Implemented as Appropriate) Problem: Renal Function Impairment (Chronic Kidney Disease) Goal: Laboratory Values and Blood Pressure Within Desired Range Outcome: Ongoing (Interventions Implemented as Appropriate) * Plan of Care - Janice Manzano RN - 12/13/2023 7:38 AM EDT Patient complained requested to be assisted to turn multiple times for comfort. Denied chest pains,vitals stable. HD Catheter site began to bleed at around 5AM, bleeding localised at incision site. MD notified. Ataround 625AM bleeding increased, dressing reinforced and honing machine try out setter contacted. She said unit RN isnot allowed to change HD catheter dressing and issue would be addressed this AM during dialysis. Problem: Adult Inpatient Plan of Care Goal: Plan of Care Review Outcome: Ongoing (Interventions Implemented as Appropriate) Goal: Patient-Specific Goal (Individualized) Outcome: Ongoing (Interventions Implemented as Appropriate) Goal: Absence of Hospital-Acquired Illness or Injury Outcome: Ongoing (Interventions Implemented as Appropriate) * Plan of Care - Jacqui Feliciano RN - 12/12/2023 7:05 PM EDT Problem: Adult Inpatient Plan of Care Goal: Plan of Care Review Outcome: Ongoing (Interventions Implemented as Appropriate) Goal: Patient-Specific Goal (Individualized) Outcome: Ongoing (Interventions Implemented as Appropriate) Goal: Absence of Hospital-Acquired Illness or Injury Outcome: Ongoing (Interventions Implemented as Appropriate) Goal: Optimal Comfort and Wellbeing Outcome: Ongoing (Interventions Implemented as Appropriate) Goal: Readiness for Transition of Care Outcome: Ongoing (Interventions Implemented as Appropriate) Problem: Pain Acute Goal: Acceptable Pain Control and Functional Ability Outcome: Ongoing (Interventions Implemented as Appropriate) Problem: Infection Goal: Absence of Infection Signs and Symptoms Outcome: Ongoing (Interventions Implemented as Appropriate) Problem: Fall Injury Risk Goal: Absence of Fall and Fall-Related Injury Outcome: Ongoing (Interventions Implemented as Appropriate) Problem: Gas Exchange Impaired Goal: Optimal Gas Exchange Outcome: Ongoing (Interventions Implemented as Appropriate) Problem: Chest Pain Goal: Resolution of Chest Pain Symptoms Outcome: Ongoing (Interventions Implemented as Appropriate) Problem: Diabetes Comorbidity Goal: Blood Glucose Level Within Targeted Range Outcome: Ongoing (Interventions Implemented as Appropriate) Problem: Heart Failure Comorbidity Goal: Maintenance of Heart Failure Symptom Control Outcome: Ongoing (Interventions Implemented as Appropriate) Problem: Adjustment to Illness (Chronic Kidney Disease) Goal: Optimal Coping with Chronic Illness Outcome: Ongoing (Interventions Implemented as Appropriate) Problem: Electrolyte Imbalance (Chronic Kidney Disease) Goal: Electrolyte Balance Outcome: Ongoing (Interventions Implemented as Appropriate) Problem: Fluid Volume Excess (Chronic Kidney Disease) Goal: Fluid Balance Outcome: Ongoing (Interventions Implemented as Appropriate) Problem: Functional Decline (Chronic Kidney Disease) Goal: Optimal Functional Ability Outcome: Ongoing (Interventions Implemented as Appropriate) Problem: Hematologic Alteration (Chronic Kidney Disease) Goal: Absence of Anemia Signs/Symptoms Outcome: Ongoing (Interventions Implemented as Appropriate) Problem: Oral Intake Inadequate (Chronic Kidney Disease) Goal: Optimal Oral Intake Outcome: Ongoing (Interventions Implemented as Appropriate) Problem: Renal Function Impairment (Chronic Kidney Disease) Goal: Laboratory Values and Blood Pressure Within Desired Range Outcome: Ongoing (Interventions Implemented as Appropriate) * Care Management - Becca Carbajal - 12/12/2023 10:48 AM EDTSummary: Advance Directive Patient completed Advance Directive with Marketing Underwriter. Graciela Russo (spouse) named primary agent. Delia Russo (mom) named secondary agent. * Plan of Care - Janice Manzano RN - 12/12/2023 6:39 AM EDT Complained of nausea twice this shift, received PRN Zofran and one time dose of Ativan with good effect. Denies chest pains. Q4 BMP continued. For HD this AM. Problem: Adult Inpatient Plan of Care Goal: Plan of Care Review Outcome: Ongoing (Interventions Implemented as Appropriate) Goal: Patient-Specific Goal (Individualized) Outcome: Ongoing (Interventions Implemented as Appropriate) Goal: Absence of Hospital-Acquired Illness or Injury Outcome: Ongoing (Interventions Implemented as Appropriate) * Plan of Care - Shelia Clements RN - 12/11/2023 6:46 PM EDT OUTCOME EVALUATION NOTE: OUTCOME SUMMARY: Pt is a watcher Pt has been lethargic to be updated Critical high K+ 6.8 @ 16:30pm, Bun 78, creat 4.58 & Co2 62. Hep B screen done negative. Had Tunnel Subclavian HD line placed by IR this PM. 1st dialysis done at bedside tolerated well with 3lL of fluid removed. Nebs 4 x daily, O2 via nasal canula on 3L. Cardiac diet. Tdod insitu with 1500 output PLAN MOVING FORWARD: Follow-up for Bi-pap/C-pap BMP Q4hrly POCT continued Maintain I & O Dialysis for Am Ongoing CARE PLAN GOAL OUTCOME EVALUATION: Problem: Adult Inpatient Plan of Care Goal: Plan of Care Review 12/11/20231841 by Shelia Clements RN Outcome: Ongoing (Interventions Implemented as Appropriate) 12/11/20231837 by Shelia Clements RN Outcome: Ongoing (Interventions Implemented as Appropriate) Goal: Patient-Specific Goal (Individualized) 12/11/20231841 by Shelia Clements RN Outcome: Ongoing (Interventions Implemented as Appropriate) 12/11/20231837 by Shelia Clements RN Outcome: Ongoing (Interventions Implemented as Appropriate) Goal: Absence of Hospital-Acquired Illness or Injury 12/11/20231841 by Shelia Clements RN Outcome: Ongoing (Interventions Implemented as Appropriate) 12/11/20231837 by Shelia Clements RN Outcome: Ongoing (Interventions Implemented as Appropriate) Goal: Optimal Comfort and Wellbeing 12/11/20231841 by Shelia Clements RN Outcome: Ongoing (Interventions Implemented as Appropriate) 12/11/20231837 by Shelia Clements RN Outcome: Ongoing (Interventions Implemented as Appropriate) Goal: Readiness for Transition of Care 12/11/2023 184 by Shelia Clements RN Outcome: Ongoing (Interventions Implemented as Appropriate) 12/11/20231837 by Shelia Clements RN Outcome: Ongoing (Interventions Implemented as Appropriate) Problem: Pain Acute Goal: Acceptable Pain Control and Functional Ability 12/11/2023 184 by Shelia Clements RN Outcome: Ongoing (Interventions Implemented as Appropriate) 12/11/20231837 by Shelia Clements RN Outcome: Ongoing (Interventions Implemented as Appropriate) Problem: Infection Goal: Absence of Infection Signs and Symptoms 12/11/20231841 by Shelia Clements RN Outcome: Ongoing (Interventions Implemented as Appropriate) 12/11/20231837 by Shelia Clements RN Outcome: Ongoing (Interventions Implemented as Appropriate) Problem: Fall Injury Risk Goal: Absence of Fall and Fall-Related Injury 12/11/20231841 by Shelia Clements RN Outcome: Ongoing (Interventions Implemented as Appropriate) 12/11/20231837 by Shelia Clements RN Outcome: Ongoing (Interventions Implemented as Appropriate) Problem: Gas Exchange Impaired Goal: Optimal Gas Exchange 12/11/20231841 by Shelia Clements RN Outcome: Ongoing (Interventions Implemented as Appropriate) 12/11/20231837 by Shelia Clements RN Outcome: Ongoing (Interventions Implemented as Appropriate) Problem: Chest Pain Goal: Resolution of Chest Pain Symptoms 12/11/20231841 by Shelia Clements RN Outcome: Ongoing (Interventions Implemented as Appropriate) 12/11/20231837 by Shelia Clements RN Outcome: Ongoing (Interventions Implemented as Appropriate) Problem: Diabetes Comorbidity Goal: Blood Glucose Level Within Targeted Range 12/11/20231841 by Shelia Clements RN Outcome: Ongoing (Interventions Implemented as Appropriate) 12/11/20231837 by Shelia Clements RN Outcome: Ongoing (Interventions Implemented as Appropriate) Problem: Heart Failure Comorbidity Goal: Maintenance of Heart Failure Symptom Control 12/11/2023 1842 by Shelia Clements RN Outcome: Ongoing (Interventions Implemented as Appropriate) 12/11/2023 1838 by Shelia Clements RN Outcome: Ongoing (Interventions Implemented as Appropriate) Problem: Adjustment to Illness (Chronic Kidney Disease) Goal: Optimal Coping with Chronic Illness Outcome: Ongoing (Interventions Implemented as Appropriate) Problem: Electrolyte Imbalance (Chronic Kidney Disease) Goal: Electrolyte Balance Outcome: Ongoing (Interventions Implemented as Appropriate) Problem: Fluid Volume Excess (Chronic Kidney Disease) Goal: Fluid Balance Outcome: Ongoing (Interventions Implemented as Appropriate) Problem: Functional Decline (Chronic Kidney Disease) Goal: Optimal Functional Ability Outcome: Ongoing (Interventions Implemented as Appropriate) Problem: Hematologic Alteration (Chronic Kidney Disease) Goal: Absence of Anemia Signs/Symptoms Outcome: Ongoing (Interventions Implemented as Appropriate) Problem: Oral Intake Inadequate (Chronic Kidney Disease) Goal: Optimal Oral Intake Outcome: Ongoing (Interventions Implemented as Appropriate) Problem: Renal Function Impairment (Chronic Kidney Disease) Goal: Laboratory Values and Blood Pressure Within Desired Range Outcome: Ongoing (Interventions Implemented as Appropriate) * Initial Assessments - Becky Arellano RN - 12/11/2023 12:07 PM EDT Office of Care Management Initial Assessment Becky Arellano RN reviewed record and discussed patient with Care Team. Source of Information: Team, bedside nurse, medical record, and Introduced self/reviewed role; services accepted. Admitted From: Transfer from another hospital Location: [facility] Reason for Hospitalization: I'm not doing very well Past medical History: Past Medical History: Diagnosis Date Coronary artery disease Diabetes Hypertension Hospitalizations Within the Past 30 Days: no previous admission in last 30 days Current Decision-Making Capacity: Self If AD's have not been completed the following surrogate would be surrogate decision maker per [place] surrogate decision making law. (Only good for 180 days) Any patient receiving care in [place] must abide by [place] law. The hierarchy for surrogate decision making is: (a) Patient???s spouse or civil union partner unless there is a divorce proceeding, separation agreement, or restraining order limiting that person???s relationship with the patient. (b) Any adult son or daughter of the patient. (c) Either parent of the patient. (d) Any adult brother or sister of the patient. (e) Any adult grandchild of the patient. (f) Any grandparent of the patient. (g) Any adult aunt, uncle, niece, or nephew of the patient. (h) A close friend of the patient. (i) The agent with financial power of attorney law clerk or a conservator appointed in accordance with RSA 464-A. (j) The guardian of the patient???s estate. Advance Care Planning: Attempt Cardiopulmonary Resuscitation - Inpatient <no information> -Advanced Directive: No, need to discuss Current Coping/Education/Information Needs: Able to make needs known Current Functional Ability: Assistive Person, Independent Functional Status Prior to Admission: Independent Prior ADLs & IADLs: Independent with all ADLs & IADLs Home Environment: Others in the home: spouse, pet(s) (, Alina and 1 cat). Current Living Arrangements: home/apartment/condo. Accessibility Concerns:Second floor apartment.. In the last 12 months, was there a time when you were not able to pay the mortgage or rent on time?: No At any time in the past 12 months, were you homeless or living in a skilled nursing (including now)?: No In the past 12 months has the Diana, gas, oil, or water [employer] threatened to shut off services in your home?: No Within the past 12 months, you worried that your food would run out before you got the money to buymore.: Never true Within the past 12 months, the food you bought just didn't last and you didn't have money to get more.: Never true Resource / Environmental Concerns: Resource/Environmental Concerns: none Home Accessibility Concerns: stairs to enter home In the past 12 months, has lack of transportation kept you from medical appointments or from getting medications?: No In the past 12 months, has lack of transportation kept you from meetings, work, or from getting things needed for daily living?: No Current DME: none Home Address confirmed as: [address] [place] [id number] Social & Family Supports: All names listed below confirmed with patient as current and correct Extended Emergency Contact Information Primary Emergency Contact: KaranCelso Relation: Father Secondary Emergency Contact: Beck Muir Mobile Relation: Friend Mother: Delia Russo Mobile Current Care Provided by: self Provides Primary Care For: no one Caregiver if needed: parent(s) Quality of Family relationships: helpful, involved, supportive Community Resources being provided currently: none Behavioral Health History: Anxiety Substance Use/Abuse confirmed: Social History Tobacco Use Smoking Status Former Current packs/day: 1.00 Average packs/day: 1 pack/day for 10.0 years (10.0 ttl pk-yrs) Types: Cigarettes Smokeless Tobacco Never In the past year have you used an illegal drug or used a prescription medication for non-medical reasons?: No 0 No problems reported 1-2 Low level 3-5 Moderate level 6-8 Substantial level 9- 10 Severe level In the past year have you had 5 or more drinks a day containing alcohol?: No 0 to 7 points: Low risk 8 to 15 points: Medium risk 16 to 19 points: High risk 20 to 40 points: Addiction likely Other Pertinent/Service Specific Information: Health/Prescription Coverage: Primary Insurance: [facility] Payor: [facility] / Plan: [facility] / Product Type: *No Product type* / Secondary Insurance: N/A ; Prescription Coverage: Yes Preferred Pharmacy: [facility] [address] [place] [id number] Status: Patient is a : No Primary Care Provider confirmed: GLENIS Alexandra [phone] Patient/Caregiver Goals of Treatment: Potential Needs for Transition of Care: none Agency Referrals: I have met with the patient to: discuss discharge planning needs. provide the [facility], Office of Care Management letter from the Occupational Safety And Health Manager pertaining to rehab referrals. provide a letter describing our affiliations within the [facility] and educate about their right to choose where referrals are sent. provide a list of Home Health Agencies / Durable Medical Equipment vendors which serve their preferred geographic area. provided patient with [facility] Star Quality Rating handout. They have requested referrals to: [facility] [address], [place] [address] and Note routed to a Marketing Underwriter who will communicate referrals to facilities and provide any required information. Transportation: no concerns Transportation Anticipated: family or friend will provide Concerns to be Addressed: no discharge needs identified Assessment: Patient is admitted to Medicine service for CHF Plan going forward: Continued Medical Mangement, plan will be to DC home with [facility] when MR. Care Management team will continue to follow and assist with discharge planing and coordination of care as indicated. Becky Arellano RN CM Software Architect- Medicine Office of Care Management Ext: [phone] Pager: [phone] Plan of Care - Janice Manzano RN - 12/11/2023 7:32 AM EDT Potassium elevated this shift, highest 7.4. Shifted three times, last check 6AM 7.0. Urine output 450ML at 1030PM with no other output. Lasix 120Mg given at 2346. Had no more urine output by 230AM. Bladder scan 134ML MD notified. Todd passed 6AM, drained 450ML clear urine. Critical values this AM, K 7.0, PH 7.11, pCO2 69. MD notified. Denies chest pains, SOB, palpitations or onset of new kendra problems. Vitals remains within target range. Unable to get weight, pt unable to make it to standing scale. Problem: Adult Inpatient Plan of Care Goal: Plan of Care Review Outcome: Ongoing (Interventions Implemented as Appropriate) Goal: Patient-Specific Goal (Individualized) Outcome: Ongoing (Interventions Implemented as Appropriate) Goal: Absence of Hospital-Acquired Illness or Injury Outcome: Ongoing (Interventions Implemented as Appropriate) Goal: Optimal Comfort and Wellbeing Outcome: Ongoing (Interventions Implemented as Appropriate) Goal: Readiness for Transition of Care Outcome: Ongoing (Interventions Implemented as Appropriate) * Consult Note - Steve Dotson MD - 12/11/2023 6:37 AM EDT Images from the original note were not included. 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 Nephrology is consulted for DONAL and hyperkalemia History of Present Illness: Initially called AM of 12/11/23 at around 0500 for refractory hyperkalemia. Patient had put out 1L of urine the day prior, K+ vivien to >7.0, UOP since midnight was about 100 cc. I advised high doselasix and thiazide sequential blockade, continue lokelma, and to place a todd catheter to ensure there is no obstruction. On arrival to the hospital the patient had large volume of urine emptied from his catheter bag that had only been placed about twenty minutes prior. He had a recent CABG complicated by the need for CVVH due to underlying CKD 4. He first presented to [facility] with anasarca and RUQ pain. He said he has had more shortness of breath lately,orthopnea, worsening fatigue and inability to get around. He received some lasix at the OSH that gave him relief of all symptoms. He has been taking torsemide 40 at home. He was 294 lbs on admission,with reported discharge weight of 258 lbs in our system. At [facility] he was bradycardic, K+ 6.7, CXR with left pleural effusion. His repeat K+ there was 7.3 but he put out urine while drawn so he was sent here. On arrival here he has been hemodynamically stable, bradycardic, on 2L oxygen. So far he is net 1.4L negative. His K+ has gone from 6.8-->6.0 now to >7.0. sCr 4.09-->4.38. HCO3 is around 19.Lactate normal. CBC stable from October. CXR here with some left lower lobe atelectasis, trace effusion. He has been given lasix 80, 120, now 160 and metolazone 5. Seen at the bedside with NC on he reports overall feeling better but still not quite right. His renal history suggests a baseline of about 2.0-3.0, but now since CVVH was carried out in October it is a bit unclear what his new baseline is. His last UACR was 1478 on 11/27/23 with UPCR 2.5. Taking losartan, torsemide, farxiga at home. Review of Systems: Full ROS performed. All positive symptoms noted in HPI. Past Medical and Surgical History: Past Medical History: Diagnosis Date Coronary artery disease Diabetes Hypertension Past Surgical History: Procedure Laterality Date CORONARY ANGIOPLASTY WITH STENT PLACEMENT HERNIA REPAIR PRG CATH PLMT LEFT HEART CATH & ARTS W/INJ & ANGIO IMG S&I N/A 08/04/2023 CORONARY ANGIOGRAPHY; W C,POSSIBLE PCI (WRVU 5.6) performed by Azul Rowley MD at [facility] CATHLABS PRO CABG, ARTERIAL, SINGLE N/A 10/30/2023 @CABG, USING ARTERIAL GRAFT;SINGLE ARTERIAL GRAFT (WRVU 33.75) performed by Timi Dutta MD at [facility] MAIN OR PRO CABG, ARTERY-VEIN, TWO N/A 10/30/2023 @CABG, TWO VENOUS GRAFTS & ARTERIAL GRAFT (WRVU 7.93) performed by Timi Dutta MD at [facility] MAIN OR PRO ENDOSCOPY W/VIDEO-ASST VEIN HARVEST, CABG N/A 10/30/2023 ENDOSCOPIC HARVEST VEIN(S) FOR CABG (WRVU 0.31) performed by Timi Dutta MD at [facility] MAIN OR Family History: Family History Problem Relation Age of Onset Coronary Artery Disease Father 62 Hypertension Father Hyperlipidemia Father Diabetes Maternal Grandfather Diabetes Paternal Grandfather Social History: Social History Socioeconomic History Marital status: Single Spouse name: Not on file Number of children: Not on file Years of education: Not on file Highest education level: Not on file Occupational History Not on file Tobacco Use Smoking status: Former Current packs/day: 1.00 Average packs/day: 1 pack/day for 10.0 years (10.0 ttl pk-yrs) Types: Cigarettes Smokeless tobacco: Never Substance and Sexual Activity Alcohol use: Not Currently Comment: Pt reports I haven't had a beer in months Drug use: Never Sexual activity: Yes Other Topics Concern Not on file Social History Narrative Not on file Social Determinants of Health Financial Resource Strain: Not on file Food Insecurity: No Food Insecurity (11/01/2023) Hunger Vital Sign Worried About Running Out of Food in the Last Year: Never true Ran Out of Food in the Last Year: Never true Transportation Needs: No Transportation Needs (11/01/2023) PRAPARE - Transportation Lack of Transportation (Medical): No Lack of Transportation (Non-Medical): No Physical Activity: Not on file Intimate Partner Violence: Not At Risk (2023) IPV Inpatient Questions Prevent Contact with Others: no Feels Threatened by Someone: no Feels Unsafe at Home: no Physical Signs of Abuse Present: no Housing Stability: Low Risk (11/01/2023) Housing Stability Vital Sign Unable to Pay for Housing in the Last Year: No Number of Times Moved in the Last Year: 0 Homeless in the Last Year: No Physical Examination: Last value 24 Hour Temperature Range Temp: [36.4 ??C (97.6 ??F)-36.9 ??C (98.4 ??F)] 12 Hour Heart Rate Range Heart Rate: [54-59] 24 Hour Blood Pressure Range BP: (121-146)/(50-95) Respiratory Rate Resp: 18 SpO2 SpO2: 94 % Body mass index is 41.9 kg/m??. General: No acute distress, comfortable. Obese habitus HEENT: Eyes anicteric and not injected. No oropharyngeal lesions. Cardiac: Normal rate, and regular rhythm. S1S2 appreciated. Large central midline scar. Chest: Good effort and aeration. Has some crackles. Somewhat labored and unable to speak in full sentences. Abdomen: BS present. Soft, nontender, non-distended. Extremities: Warm, well perfused. Has edema bilaterally. Skin: No abnormalities noted. Skin turgor expected for age. Neurologic: No asterixis. Alert and oriented x 4. Follows all requests. insulin regular human 10 Units in dextrose 10 % 500 mL infusion 10 Units Intravenous Once AMIOdarone 200 mg Oral Daily apixaban 2.5 mg Oral BID aspirin 81 mg Oral Daily atorvastatin 40 mg Oral QPM citalopram 10 mg Oral Daily clopidogreL 75 mg Oral Daily pantoprazole EC 40 mg Oral Daily sodium chloride 0.9 % (flush) 5 mL Intravenous BID insulin lispro 1-4 Units Subcutaneous TID AC insulin lispro 0-8 Units Subcutaneous TID WC sodium zirconium cyclosilicate 10 g Oral Q8H ISAMAR senna-docusate 2 tablet Oral BID Lab Results Component Value Date CREATININE 4.38 (H) 12/11/2023 CREATININE 4.22 (H) 2023 CREATININE 4.17 (H) 2023 CREATININE 4.18 (H) 2023 CREATININE 4.09 (H) 2023 CREATININE 2.83 (H) 09/22/2023 CREATININE 2.39 (H) 08/04/2023 CREATININE 2.49 (H) 06/07/2023 CREATININE 2.57 (H) 06/06/2023 CREATININE 2.16 (H) 06/05/2023 ESTGFR 27 (L) 09/22/2023 ESTGFR 33 (L) 08/04/2023 ESTGFR 32 (L) 06/07/2023 ESTGFR 30 (L) 06/06/2023 ESTGFR 38 (L) 06/05/2023 NA 135 12/11/2023 NA 139 2023 NA 137 2023 NA 138 09/22/2023 NA 137 08/04/2023 NA 136 06/07/2023 K 7.4 (CRIT) 12/11/2023 K 6.7 (CRIT) 2023 K 6.0 (H) 2023 K 4.9 09/22/2023 K 4.6 08/04/2023 K 4.7 06/07/2023 CO2 19 (L) 12/11/2023 CO2 19 (L) 2023 CO2 17 (L) 2023 CO2 22 09/22/2023 CO2 23 08/04/2023 CO2 21 (L) 06/07/2023 Lab Results Component Value Date CALCIUM 8.9 12/11/2023 CALCIUM 8.7 2023 CALCIUM 8.8 2023 CALCIUM 9.3 09/22/2023 CALCIUM 9.2 08/04/2023 CALCIUM 8.8 06/07/2023 PHOS 6.7 (H) 2023 PHOS 6.4 (H) 2023 PHOS 3.3 11/27/2023 PHOS 3.4 10/12/2018 PTH 63 11/27/2023 PTH 239 (H) 11/04/2023 25OHVITD 13 (L) 11/27/2023 25OHVITD 9 (L) 11/04/2023 FREET4 0.85 (L) 2023 TSH 10.70 (H) 2023 TSH 3.68 06/04/2023 URICACID 12.8 (H) 11/04/2023 Lab Results Component Value Date HGB 8.6 (L) 12/11/2023 HGB 8.0 (L) 2023 HGB 9.4 (L) 11/27/2023 HGB 12.4 (L) 09/22/2023 HGB 12.0 (L) 08/04/2023 HGB 9.7 (L) 06/07/2023 FERRITIN 209 11/27/2023 FERRITIN 555 (H) 11/15/2023 FERRITIN 835 (H) 11/04/2023 IRONSAT 13 (L) 11/27/2023 IRONSAT 11 (L) 11/15/2023 IRONSAT 10 (L) 11/04/2023 IRONSAT 16 (L) 10/14/2018 Lab Results Component Value Date UMICALBCALC 1,478 (H) 11/27/2023 UMICALBCALC 591 (H) 11/04/2023 UPROTCREAT 2.5 11/27/2023 UPROTCREAT 1.2 11/04/2023 ALBUMIN 3.4 2023 ALBUMIN 3.5 11/27/2023 ALBUMIN 2.7 (L) 11/11/2023 ALBUMIN 3.8 09/22/2023 ALBUMIN 3.8 10/12/2018 Assessment & Plan: Ambrocio Russo is a 48 YO M with 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 Nephrology is consulted for DONAL and hyperkalemia # Non-oliguric DONAL on CKD g4/A3 CKD G4/A3: Likely secondary to underlying diabetes (A1c since 2019 9.5-13.9) as well as many DONAL most notably post-CABG 10/2023 needing CVVH DONAL: Likely secondary to decompensated HF with intravascular hypervolemia with resultant cardiorenal like physiology and some obstruction. He did not get contrast, calcium is not high, no CNI, no NSAIDs, no concern for rhabdo, reviewed CT above for renovascular disease-not obvious and does not appear hypovolemic or to be in shock. He could have normotensive ischemic ATN, no recent infection or antibiotics I know of, and likely not a new GN. Obstruction is quite possible in this demographic - I advised todd on AM 12/10 -Baseline sCr: Likely closer to about 3.2, admit 4.0-->4.38. -Urinary studies: None here. Last UACR 1478 11/27/23. -I/Os: urinating well -Serologies: No SPEP, UPEP -Imaging: Recommendations: -Despite increased UOP and diuresis he continues to have hyperkalemia -We should plan for vascular access for HD today; 3 hours, 300 BFR, shoot for 3L off. If we run into hemodynamic compromise we can try CVVH. HD will clear K+ quicker and may solve his volume issue sooner. -Access: planning for TDC 12/10 -3 hours, 300 BFR, no heparin, goal 3L off. -Advised todd placement this AM with great output. -Recommend lasix 160 and either metolazone or diuril, start lasix gtt if needed -Likely needs an updated TTE -Please send SPEP, UPEP, SFLC, C3/C4, UACR, UPCR -His K+ likely reflects renal dysfunction, but its lack of improvement with diuresis is interesting. Let's not miss hemolysis. -Please avoid NSAIDs, IV contrast, nephrotoxins -Keep MAP >65 as able to -Renally dose medications as appropriate # Blood pressure and Hemodynamics Acceptable for now # Electrolytes Hyperkalemia is a long issue for him, on ARB at home, with advanced CKD and frequent cardiac manifestations and DONAL. -Treatment as above -Continue lokelma # Acid/Base His VBG is 7.11/69/42/21, corrected for venous is about 7.16, PC2 61-63. Overall consistent with primarily a respiratory acidosis, though is certainly mixed. There is no anion gap. -NaHCO3 is OK for now # Anemia Hgb here is 8.0-8.6 range. Recent iron studies low -if he did not get venofer as arranged outpatient I would administer here once his decompensated status improves. # Mineral and Bone Has vitamin D deficiency, 13 on 11/27/23. PTH is 63. Phos is high. Calcium is normal. SUMMARY OF RECOMMENDATIONS -TDC with IR then HD planned. -Diuresis as above, todd placement as above -send serologies as above: SPEP, UPEP, SFLC, C3/C4, UACR, UPCR This case was staffed with Dr. Deluna Thank you for involving us in the care of this patient. Nephrology will continue to follow. Please contact me at phone: [phone] or pager: [phone] with any questions. Steve Dotson MD Nephrology & Hypertension Fellow * Consult Note - Andriy Baeza MD - 12/11/2023 5:54 AM EDT Images from the original note were not included. Cardiology Consult Note Date of Consultation: 12/11/2023 Admit Date: 2023 Hospital Day 1 day Reason for Consult: Hyperkalemia Active Problems: Active Hospital Problems Diagnosis CHF (congestive heart failure) Resolved Hospital Problems No resolved problems to display. HPI: Hayden Russo is a 48 y.o. male with a history significant for CAD (STEMI 2019 to RCA c/b ISRnow s/p CABG 10/30/23 [[facility], SVG->OM2, SVG->PDA]), CKD IV presenting for volume overload. Cardiology consulted due to worsening hyperkalemia and oliguria. Recently underwent CABG which was complicated by DONAL requiring CVVH. Since discharge he has followed with Nephrology with new baseline CKD IV and hyperkalemia in mid 5's. He had worsening volume overload despite home torsemide 40mg. He was admitted to OSH with worsening volume overload and transferred to hospital medicine overnight. He initially made >1L urine to lasix 80mg however for the past several hours has been oliguric despite lasix 120mg. AM Potassium has increased from 6.8 to 7.4 without T wave changes. Past Medical History: Diagnosis Date Coronary artery disease Diabetes Hypertension Past Surgical History: Procedure Laterality Date CORONARY ANGIOPLASTY WITH STENT PLACEMENT HERNIA REPAIR PRG CATH [facility] LEFT HEART CATH & ARTS W/INJ & ANGIO IMG S&I N/A 08/04/2023 CORONARY ANGIOGRAPHY; W LHC,POSSIBLE PCI (WRVU 5.6) performed by Azul Rowley MD at [facility] CATHLABS PRO CABG, ARTERIAL, SINGLE N/A 10/30/2023 @CABG, USING ARTERIAL GRAFT;SINGLE ARTERIAL GRAFT (WRVU 33.75) performed by Timi Dutta MD at [facility] MAIN OR PRO CABG, ARTERY-VEIN, TWO N/A 10/30/2023 @CABG, TWO VENOUS GRAFTS & ARTERIAL GRAFT (WRVU 7.93) performed by Timi Dutta MD at [facility] MAIN OR PRO ENDOSCOPY W/VIDEO-ASST VEIN HARVEST, CABG N/A 10/30/2023 ENDOSCOPIC HARVEST VEIN(S) FOR CABG (WRVU 0.31) performed by Timi Dutta MD at [facility] MAIN OR No Known Allergies Cardiac Medications: Aspirin, plavix amiodarone, atorvastatin Out-Patient Medications: Medications Prior to Admission Medication Sig Dispense Refill Last Dose dapagliflozin propanediol (Farxiga) 10 mg tablet Take 1 tablet by mouth daily. 12/09/2023 torsemide (Demadex) 20 mg tablet Take 2 tablets by mouth daily. 90 tablet 0 12/09/2023 losartan (Cozaar) 50 mg tablet Take 1 tablet by mouth 2 times daily. 180 tablet 5 12/09/2023 atorvastatin (Lipitor) 40 mg tablet Take 1 tablet by mouth every evening for 30 days. Then resume 80mg daily 30 tablet 0 12/09/2023 AMIOdarone (Pacerone) 200 mg tablet Take 1 tablet by mouth daily. 30 tablet 0 12/09/2023 apixaban (Eliquis) 2.5 mg tablet Take 1 tablet by mouth 2 times daily. 60 tablet 5 12/09/2023 clopidogreL (Plavix) 75 mg tablet Take 1 tablet by mouth daily. 90 tablet 3 12/09/2023 citalopram (CeleXA) 10 mg tablet Take 1 tablet by mouth daily. 60 tablet 3 12/09/2023 pantoprazole EC (Protonix) [address] tablet Take 1 tablet by mouth daily. 90 tablet 3 12/09/2023 aspirin 81 mg Tablet, Chewable Take 81 mg by mouth daily. 30 tablet 3 12/09/2023 Cholecalciferol, Vitamin D3, (Dialyvite Vitamin D) 125 mcg (5,000 unit) Capsule Take 1 capsule by mouth daily. 90 capsule 3 Unknown oxyCODONE (Roxicodone) 5 mg tablet Take 1 tablet by mouth every 8 hours as needed for Pain. (Patient not taking: Reported on 11/27/2023) 14 tablet 0 Unknown Insulin Basaglar KwikPen U-100 100 unit/mL (3 mL) pen Inject 40 Units subcutaneously daily. Unknown humaLOG KwikPen 100 unit/mL Insulin Pen Inject 0-14 Units subcutaneously 3 times daily (with meals). Unknown acetaminophen (Tylenol) 500 mg tablet Take 2 tablets by mouth every 6 hours as needed for Pain. Unknown ferrous sulfate (FeroSul) 325 mg (65 mg iron) tablet Take 1 tablet by mouth 3 times daily (with meals). (Patient taking differently: Take 325 mg by mouth daily.) Unknown blood-glucose meter (FREESTYLE) Kit USE TO CHECK GLUCOSE THREE TIMES DAILY 0 Unknown ONETOUCH ULTRA BLUE TEST STRIP Strip USE 1 STRIP TO CHECK GLUCOSE THREE TIMES DAILY . 11 Unknown In-Patient Medications: insulin regular human 10 Units in dextrose 10 % 500 mL infusion 10 Units Intravenous Once furosemide 160 mg Intravenous Once sodium bicarbonate 1,950 mg Oral Once AMIOdarone 200 mg Oral Daily apixaban 2.5 mg Oral BID aspirin 81 mg Oral Daily atorvastatin 40 mg Oral QPM citalopram 10 mg Oral Daily clopidogreL 75 mg Oral Daily pantoprazole EC 40 mg Oral Daily sodium chloride 0.9 % (flush) 5 mL Intravenous BID insulin lispro 1-4 Units Subcutaneous TID AC insulin lispro 0-8 Units Subcutaneous TID WC sodium zirconium cyclosilicate 10 g Oral Q8H ISAMAR senna-docusate 2 tablet Oral BID Family History: Family History Problem Relation Age of Onset Coronary Artery Disease Father 62 Hypertension Father Hyperlipidemia Father Diabetes Maternal Grandfather Diabetes Paternal Grandfather Social History: Social History Socioeconomic History Marital status: Single Spouse name: Not on file Number of children: Not on file Years of education: Not on file Highest education level: Not on file Occupational History Not on file Tobacco Use Smoking status: Former Current packs/day: 1.00 Average packs/day: 1 pack/day for 10.0 years (10.0 ttl pk-yrs) Types: Cigarettes Smokeless tobacco: Never Substance and Sexual Activity Alcohol use: Not Currently Comment: Pt reports I haven't had a beer in months Drug use: Never Sexual activity: Yes Other Topics Concern Not on file Social History Narrative Not on file Social Determinants of Health Financial Resource Strain: Not on file Food Insecurity: No Food Insecurity (11/01/2023) Hunger Vital Sign Worried About Running Out of Food in the Last Year: Never true Ran Out of Food in the Last Year: Never true Transportation Needs: No Transportation Needs (11/01/2023) PRAPARE - Transportation Lack of Transportation (Medical): No Lack of Transportation (Non-Medical): No Physical Activity: Not on file Intimate Partner Violence: Not At Risk (2023) IPV Inpatient Questions Prevent Contact with Others: no Feels Threatened by Someone: no Feels Unsafe at Home: no Physical Signs of Abuse Present: no Housing Stability: Low Risk (11/01/2023) Housing Stability Vital Sign Unable to Pay for Housing in the Last Year: No Number of Times Moved in the Last Year: 0 Homeless in the Last Year: No Objective: Last value Range last 8 hrs Temperature Temp: 36.9 ??C (98.4 ??F) Temp: [36.4 ??C (97.6 ??F)-36.9 ??C (98.4 ??F)] Heart Rate Heart Rate: 54 Heart Rate: [54-59] Blood Pressure BP: 146/75 BP: (127-146)/(66-75) Respiratory Rate Resp: 18 Resp: [17-19] SpO2 SpO2: 94 % SpO2: [94 %-97 %] Intake/Output Summary (Last 24 hours) at 12/11/2023 0554 Last data filed at 2023 2250 Gross per 24 hour Intake 630 ml Output 1725 ml Net -1095 ml Wt & BMI By Encounter Date Flowsheet Row Admission (Current) from 2023 in Medical [facility] Care Unit Level 3 Wing A at [facility] Office Visit from 11/27/2023 in Nephrology Hypertension at [facility] [place] Weight 132.5 kg (292 lb) 1 2023 1000 125.2 kg (276 lb) 1 11/27/2023 0816 BMI 41.89 1 2023 1000 39.6 1 11/27/2023 0816 ECG: sinus with IVCD, T waves without changes. ECHO:Intraoperative MORA with LVEF 50%, inferior WMAs CXR: LLL atelectasis Recent Labs 12/11/23 0413 12/10/23 1410 WBC 8.68 6.15 HGB 8.6* 8.0* HCT 30.7* 27.8* PLATELET 225 220 Recent Labs 12/11/23 0413 12/10/23233812/10/232020 NA 135 139 137 K 7.4* 6.7* 6.0* CL 106 108* 109* CO2 19* 19* 17* BUN 76* 78* 78* CREATININE 4.38* 4.22* 4.17* Recent Labs 12/10/23 1410 AST 23 ALT 62* ALKPHOS 107 BILITOT 0.3 BILIDIR <0.2 Recent Labs 12/11/23 0413 12/10/23 23312/10/23202012/10/23 1707 12/10/23 1410 CALCIUM 8.9 8.7 8.8 < > 8.7 MAGNESIUM -- -- 0.96 -- 0.97 PHOS -- -- 6.7* -- 6.4* < > = values in this interval not displayed. Recent Labs 12/10/23 1410 INR 1.2 PT 13.3* PTT 33 NT-proBNP Date Value Ref Range Status 2023 6,349 (H) <=124 pg/mL Final 10/12/2018 1,349 (H) <=125 pg/mL Final Assessment/Recommendations: Hayden Russo is a 48 y.o. male with a history significant for CAD (STEMI 2019 to RCA c/b ISRnow s/p CABG 10/30/23 [[facility]-LAD, SVG->OM2, SVG->PDA]), CKD IV presenting for volume overload. Cardiology consulted due to worsening hyperkalemia and oliguria. He did have a mildly reduced EF on intraoperative MORA however this does seem to be be a primary renal problem. Thankfully he is tolerating his renal failure well with the exception of potassium. I would increase his diuretics trial, agree with addition of thiazide and increasing lasix dose to 160mg. If he does not have robust urinary response I would plan for upgrade to critical care for CVVH. Ifhis echo demonstrates concern for cardiac component of his renal failure will plan for CVVC. #Hyperkalemia in the setting of renal failure -Metolazone 5mg, lasix 160mg, can add high concentration lasix gtt if responding - TTE - If no urinary response transfer to CVCC vs MICU for CVVH pending TTE results Andiry Baeza MD Cardiovascular Medicine Fellow documented in this encounter Plan of Treatment Upcoming Encounters Date Type Department Care Team (Late st Contact Info) Description 01/31/2024 9:30 AM EST Office Visit [place] [address] Donavon Frey MD [facility] [place] [address] 02/06/2024 1:00 PM EST Office Visit Cardiology at [address] [address] Adrian Tello MD [facility] [place] [address] 04/25/2024 10:30 AM EST Office Visit Sleep Center at [facility] [address] [place] [id number] Maria De Jesus Lange, RAMONA [facility] [place] [address] Scheduled Orders Name Type Priority Associated Diagnoses Orde r Schedule EKG 12 Lead ECG Routine Congestive heart failure, unspecified HF chronicity, unspecified heart failure type One Time for 1 Occurrences starting 12/12/2023 until 12/12/2023 Scheduled Referrals Name Type Priority Associated Diagnoses Orde r Schedule Referral to Home Health Outpatient Referral Routine Congestive heart failure, unspecified HF chronicity, unspecified heart failure type Ordered: 12/21/2023 Referral to [facility] Outpatient Referral Routine Acute respiratory failure with hypoxia Ordered: 12/21/2023 documented as of this encounter Procedures Procedure Name Priority Date/Time Associated Diagnosis Comments POC, GLUCOSE Routine 12/21/2023 11:21 AM EDT POC, GLUCOSE Routine 12/21/2023 6:37 AM EDT PTH Routine 12/21/2023 4:16 AM EDT IRON AND TIBC Routine 12/21/2023 4:16 AM EDT CBC (WITH DIFF) Routine 12/21/2023 4:16 AM EDT PHOSPHORUS Routine 12/21/2023 4:16 AM EDT MAGNESIUM Routine 12/21/2023 4:16 AM EDT FERRITIN Routine 12/21/2023 4:16 AM EDT BASIC METABOLIC PANEL Routine 12/21/2023 4:16 AM EDT POC, GLUCOSE Routine 12/20/2023 7:29 PM EDT POC, GLUCOSE Routine 12/20/2023 4:36 PM EDT POC, GLUCOSE Routine 12/20/2023 2:12 PM EDT POC, GLUCOSE Routine 12/20/2023 11:37 AM EDT POC, GLUCOSE Routine 12/20/2023 10:58 AM EDT PFT PULSE OXIMETRY, OVERNIGHT Routine 12/20/2023 9:58 AM EDT POC, GLUCOSE Routine 12/20/2023 6:05 AM EDT CBC (WITH DIFF) Routine 12/20/2023 4:31 AM EDT PHOSPHORUS Routine 12/20/2023 4:31 AM EDT MAGNESIUM Routine 12/20/2023 4:31 AM EDT BASIC METABOLIC PANEL Routine 12/20/2023 4:31 AM EDT POC, GLUCOSE Routine 12/19/2023 7:21 PM EDT POC, GLUCOSE Routine 12/19/2023 4:06 PM EDT POC, GLUCOSE Routine 12/19/2023 12:02 PM EDT POC, GLUCOSE Routine 12/19/2023 6:46 AM EDT CBC (WITH DIFF) Routine 12/19/2023 2:57 AM EDT PHOSPHORUS Routine 12/19/2023 2:57 AM EDT MAGNESIUM Routine 12/19/2023 2:57 AM EDT BASIC METABOLIC PANEL Routine 12/19/2023 2:57 AM EDT POC, GLUCOSE Routine 12/18/2023 7:47 PM EDT POC, GLUCOSE Routine 12/18/2023 4:52 PM EDT POC, GLUCOSE Routine 12/18/2023 3:49 PM EDT HEMOGLOBIN AND HEMATOCRIT, BLOOD STAT 12/18/2023 1:31 PM EDT POC, GLUCOSE Routine 12/18/2023 12:09 PM EDT POC, GLUCOSE Routine 12/18/2023 6:47 AM EDT CBC (WITH DIFF) Routine 12/18/2023 12:41 AM EDT PHOSPHORUS Routine 12/18/2023 12:41 AM EDT MAGNESIUM Routine 12/18/2023 12:41 AM EDT BASIC METABOLIC PANEL Routine 12/18/2023 12:41 AM EDT POC, GLUCOSE Routine 12/17/2023 9:15 PM EDT POC, GLUCOSE Routine 12/17/2023 5:13 PM EDT POC, GLUCOSE Routine 12/17/2023 12:14 PM EDT POC, GLUCOSE Routine 12/17/2023 6:10 AM EDT XR CHEST ONE VIEW STAT 12/17/2023 5:3 4 AM EDT CBC (WITH DIFF) Routine 12/17/2023 2:37 AM EDT BASIC METABOLIC PANEL Routine 12/17/2023 2:37 AM EDT POC, GLUCOSE Routine 12/16/2023 9:31 PM EDT POC, GLUCOSE Routine 12/16/2023 5:14 PM EDT POC, GLUCOSE Routine 12/16/2023 12:14 PM EDT POC, GLUCOSE Routine 12/16/2023 6:09 AM EDT CBC (WITH DIFF) Routine 12/16/2023 1:13 AM EDT BASIC METABOLIC PANEL Routine 12/16/2023 1:13 AM EDT POC, GLUCOSE Routine 12/15/2023 11:26 PM EDT POC, GLUCOSE Routine 12/15/2023 7:46 PM EDT POC, GLUCOSE Routine 12/15/2023 5:10 PM EDT POC, GLUCOSE Routine 12/15/2023 11:22 AM EDT POC, GLUCOSE Routine 12/15/2023 9:34 AM EDT POC, GLUCOSE Routine 12/15/2023 6:56 AM EDT CBC (WITH DIFF) Routine 12/15/2023 2:16 AM EDT BASIC METABOLIC PANEL Routine 12/15/2023 2:16 AM EDT POC, GLUCOSE Routine 12/14/2023 8:30 PM EDT POC, GLUCOSE Routine 12/14/2023 5:13 PM EDT POC, GLUCOSE Routine 12/14/2023 4:12 PM EDT POC, GLUCOSE Routine 12/14/2023 1:26 PM EDT POC, GLUCOSE Routine 12/14/2023 8:34 AM EDT POC, GLUCOSE Routine 12/14/2023 4:46 AM EDT CBC (WITH DIFF) Routine 12/14/2023 4:46 AM EDT PHOSPHORUS Routine 12/14/2023 4:46 AM EDT MAGNESIUM Routine 12/14/2023 4:46 AM EDT BASIC METABOLIC PANEL Routine 12/14/2023 4:46 AM EDT POC, GLUCOSE Routine 12/13/2023 9:[address] CHEST WO CONTRAST (GENERIC) Routine 12/13/2023 5:12 PM EDT POC, GLUCOSE Routine 12/13/2023 4:31 PM EDT POC, GLUCOSE Routine 12/13/2023 11:13 AM EDT POC, GLUCOSE Routine 12/13/2023 7:01 AM EDT CBC (WITH DIFF) Routine 12/13/2023 3:06 AM EDT BASIC METABOLIC PANEL Routine 12/13/2023 3:06 AM EDT POC, GLUCOSE Routine 12/12/2023 8:51 PM EDT PHOSPHORUS Routine 12/12/2023 4:07 PM EDT MAGNESIUM Routine 12/12/2023 4:07 PM EDT ELECTROLYTES PANEL Routine 12/12/2023 4: 07 PM EDT POC, GLUCOSE Routine 12/12/2023 3:51 PM EDT POC, GLUCOSE Routine 12/12/2023 11:11 AM EDT BASIC METABOLIC PANEL Routine 12/12/2023 7:38 AM EDT POC, GLUCOSE Routine 12/12/2023 7:05 AM EDT POC, GLUCOSE Routine 12/12/2023 6:50 AM EDT POC, GLUCOSE Routine 12/12/2023 5:48 AM EDT CBC (WITH DIFF) Routine 12/12/2023 4:08 AM EDT BASIC METABOLIC PANEL Routine 12/12/2023 4:08 AM EDT BASIC METABOLIC PANEL Routine 12/12/2023 12:04 AM EDT BASIC METABOLIC PANEL Routine 12/11/2023 8:20 PM EDT POC, GLUCOSE Routine 12/11/2023 7:48 PM EDT POC, GLUCOSE Routine 12/11/2023 4:54 PM EDT PROTEIN, TOTAL ELECTROPHORESIS (PERFROMABLE) Routine 12/11/2023 4:24 PM EDT PEP, SERUM (PERFORMABLE) Routine 12/11/2023 4:24 PM EDT IMMUNOGLOBULIN FREE LIGHT CHAINS, SERUM Routine 12/11/2023 4:24 PM EDT IMMUNOGLOBULINS, QUANTITATIVE Routine 12/11/2023 4:24 PM EDT IMMUNOFIXATION ELECTROPHORESIS, SERUM Routine 12/11/2023 4:24 PM EDT HEPATITIS B SURFACE ANTIGEN Add-On 12/11/2023 4:24 PM EDT C3 COMPLEMENT Routine 12/11/2023 4:24 PM EDT C4 COMPLEMENT Routine 12/11/2023 4:24 PM EDT PROTEIN ELECTROPHORESIS, [...] unspecified HF chronicity, unspecified heart failure type BASIC METABOLIC PANEL Routine 12/11/2023 8:12 AM EDT POC, GLUCOSE Routine 12/11/2023 8:08 AM EDT EKG 12-LEAD STAT 12/11/2023 8:02 AM EDT DONAL (acute kidney injury) BLOOD GAS VENOUS STAT 12/11/2023 6:20 AM EDT POC, GLUCOSE Routine 12/11/2023 6:16 AM EDT EKG 12-LEAD STAT 12/11/2023 4:54 AM EDT Hyperkalemia CBC (WITH DIFF) Routine 12/11/2023 4:13 AM EDT BASIC METABOLIC PANEL Routine 12/11/2023 4:13 AM EDT POC, GLUCOSE [...] POC, GLUCOSE Routine 2023 6:59 PM EDT LACTATE, WHOLE BLOOD Routine 2023 5:07 PM EDT BASIC METABOLIC PANEL Routine 2023 5:07 PM EDT POC, GLUCOSE Routine 2023 4:58 PM EDT TSH CASCADE Add-On 2023 2:10 PM EDT HC PARTIAL THROMBOPLASTIN TIME Routine 2023 2:10 PM EDT PROTHROMBIN TIME Routine 2023 2:10 PM EDT CBC (WITH DIFF) Routine 2023 2:10 PM EDT T4, FREE Routine 2023 2:10 PM EDT PHOSPHORUS Routine 2023 2:10 PM EDT PRO-BRAIN NATRIURETIC PEPTIDE Routine 2023 2:10 PM EDT MAGNESIUM Routine 2023 2:10 PM EDT HEPATIC FUNCTION PANEL Routine 2:10 PM EDT BASIC METABOLIC PANEL Routine 2023 2:10 PM EDT XR CHEST ONE VIEW Routine 2023 1:3 8 PM EDT POC, GLUCOSE Routine 2023 1:00 PM EDT EKG 12-LEAD Routine 2023 12:46 PM EDT Congestive heart failure, unspecified HF chronicity, unspecified heart failure type documented in this encounter Results * (ABNORMAL) POC, GLUCOSE (12/21/2023 11:21 AM EDT) Glucometer, POC 289(H) 65 - 199 mg/dL 12/21/2023 11:21 AM EDT [facility] Comment:Supplemental ranges: <140 mg/dL before meals <180 mg/dL all other times of the day. Blood CAPILLARY BLOOD / Unknown 12/21/2023 11:21 AM EDT 12/21/2023 11:22 AM EDT Bailey Meadows MD POINT OF CARE TEST O [place] Performing Organization Address [facility] de Phone Number [facility] [place] [address] * POC, GLUCOSE (12/21/2023 6:37 AM EDT) Glucometer, POC 186 65 - 199 mg/dL 12/21/2023 6:37 AM EDT [facility] Comment:Supplemental ranges: <140 mg/dL before meals <180 mg/dL all other times of the day. Blood CAPILLARY BLOOD / Unknown 12/21/2023 6:37 AM EDT 12/21/2023 6:37 AM EDT Bailey Meadows MD POINT OF CARE TEST O RDERABLES Performing Organization Address City/[facility]/ZIP Co de Phone Number [facility] [place] [address] * Magnesium (12/21/2023 4:16 AM EDT) Magnesium 0.91 0.69 - 1.07 mMol/L 12/21/2023 5:15 AM EDT [facility] Blood VENOUS BLOOD SPECIMEN / Unknown IP Care Team Draw / Unknown 12/21/2023 4:16 AM EDT 12/21/2023 4:44 AM EDT Bailey Meadows MD CHEMISTRY ORDERABLES Performing Organization Address [facility] [place] [address] * Phosphorus (12/21/2023 4:16 AM EDT) Phosphorus 3.5 2.5 - 4.5 mg/dL 12/21/2023 5:15 AM EDT [facility] Blood VENOUS BLOOD SPECIMEN / Unknown IP Care Team Draw / Unknown 12/21/2023 4:16 AM EDT 12/21/2023 4:44 AM EDT Bailey Meadows MD CHEMISTRY ORDERABLES Performing Organization Address [facility] Co de Phone Number [facility] [place] [address] * (ABNORMAL) PTH (12/21/2023 4:16 AM EDT) Parathyroid Hormone 87(H) 15 - 65 pg/mL 12/21/2023 5:13 AM EDT [facility] Blood VENOUS BLOOD SPECIMEN / Unknown IP Care Team Draw / Unknown 12/21/2023 4:16 AM EDT 12/21/2023 4:44 AM EDT Nerissa Cuellar APRN CHEMISTRY ORDERAB LES Performing Organization Address City/[facility]/ZIP Co de Phone Number [facility] [place] [address] * (ABNORMAL) Ferritin (12/21/2023 4:16 AM EDT) Ferritin 707(H) 31 - 409 ng/ml 12/21/2023 5:21 AM EDT [facility] Blood VENOUS BLOOD SPECIMEN / Unknown IP Care Team Draw / Unknown 12/21/2023 4:16 AM EDT 12/21/2023 4:44 AM EDT Nerissa L Alisa MATERIAL CUTTER CHEMISTRY ORDERAB LES [facility] [place] [address] * (ABNORMAL) Iron and TIBC (12/21/2023 4:16 AM EDT) Iron 22(L) 45 - 160 mcg/dL 12/21/2023 5:15 AM EDT [facility] TIBC 227(L) 250 - 450 mcg/dL 12/21/2023 5:15 AM EDT [facility] Iron Saturation 10(L) 20 - 50 % 5:15 AM EDT [facility] Blood VENOUS BLOOD SPECIMEN / Unknown IP Care Team Draw / Unknown 12/21/2023 4:16 AM EDT 12/21/2023 4:44 AM EDT Nerissa L Alisa MATERIAL CUTTER CHEMISTRY ORDERAB LES [facility] [place] [address] * (ABNORMAL) Basic Metabolic Panel (12/21/2023 4:16 AM EDT) Glucose 201(H) 65 - 199 mg/dL 12/21/2023 5:34 AM EDT [facility] Comment:Glucose Concentratio n >=200 mg/dL plus symptoms is consistent with Diabetes Mellitus. Blood Urea Nitrogen 37(H) 10 - 20 mg/dL 12/21/2023 5:[address] [facility] Creatinine 3.97(H) 0.80 - 1.50 mg/dL 12/21/2023 5:[address] [facility] Sodium 135 135 - 145 mMol/L 12/21/2023 5:[address] [facility] Potassium 4.3 3.5 - 5.0 mMol/L 12/21/2023 5:[address] [facility] Chloride 97(L) 98 - 107 mMol/L 12/21/2023 5:[address] [facility] Carbon Dioxide 27 22 - 31 mMol/L 12/21/2023 5:[address] [facility] Anion Gap 11 5 - 15 mMol/L 12/21/2023 5:[address] [facility] Calcium 9.0 8.5 - 10.5 mg/dL 12/21/2023 5:[address] [facility] Est Glomerular Filtration Rate - Male 18 mL/min/1. 73 m?? 12/21/2023 5:[address] [facility] Comment: This patient's estimated GFR [...] AM EDT 12/21/2023 4:44 AM EDT Loi Encinas MD CHEMISTRY ORDERABL ES [facility] [place] [address] * (ABNORMAL) CBC (with Diff) (12/21/2023 4:16 AM EDT) White Blood Cell 9.18 4.00 - 9.50 x10(3)/mc L 12/21/2023 4:[address] [facility] Red Blood Cell 4.06(L) 4.58 - 5.54 x10(6)/mc L 12/21/2023 4:[address] [facility] Hemoglobin 8.7(L) 13.7 - 16.5 g/dL 12/21/2023 4:[address] [facility] Hematocrit 29.3(L) 40.5 - 48.5 % 12/21/2023 4:[address] [facility] Mean Cell Volume 72.2(L) 82.9 - 93.1 fL 12/21/2023 4:[address] [facility] Mean Cell Hemoglobin 21.4(L) 27.5 - 32.1 pg 12/21/2023 4:[address] [facility] Mean Cell Hemoglobin Concentration 29.7(L) 32.0 - 35.7 g/dL 12/21/2023 4:[address] [facility] Platelet 339 145 - 357 x10(3)/mc L 12/21/2023 4:[address] [facility] Mean Platelet Volume 10.2 7.6 - 12.9 fL 12/21/2023 4:[address] [facility] RDW Standard Deviation 53.5(H) 36.0 - 45.0 fL 12/21/2023 4:[address] [facility] RDW coefficient of variation 20.6(H) 11.4 - 13.8 % 12/21/2023 4:[address] [facility] NRBC% auto 0.0 % 12/21/2023 4:[address] [facility] NRBC Absolute <0.01 <0.01 x10(3)/mc L 12/21/2023 4:53 AM EDT [facility] Neutrophil % 76.3 % 12/21/2023 4:53 AM EDT [facility] Neutrophil Absolute (ANC) - Automated 7.00(H) 1.70 - 6.10 x10(3)/mc L 12/21/2023 4:53 AM EDT [facility] Lymph % 9.8 % 12/21/2023 4:53 AM EDT [facility] Lymph Absolute 0.90 0.90 - 3.20 x10(3)/mc L 12/21/2023 4:53 AM EDT [facility] Monocyte % 11.0 % 12/21/2023 4:[address] [facility] Monocyte Absolute 1.01(H) 0.30 - 0.90 x10(3)/mc L 12/21/2023 4:53 AM EDT [facility] Eos % 2.0 % 12/21/2023 4:53 AM EDT [facility] Eos Absolute 0.18 0.00 - 0.40 x10(3)/mc L 12/21/2023 4:[address] [facility] Basophil % 0.5 % 12/21/2023 4:53 AM T [facility] Baso Absolute 0.05 0.00 - 0.10 x10(3)/mc L 12/21/2023 4:53 AM EDT [facility] Immature Gran % 0.4 % 4:53 AM EDT [facility] Immature Gran Absolute 0.04 0.00 - 0.04 x10(3)/mc L 12/21/2023 4:[address] [facility] Blood VENOUS BLOOD SPECIMEN / Unknown IP Care Team Draw / Unknown 12/21/2023 4:16 AM EDT 12/21/2023 4:44 AM EDT Loi Encinas MD HEMATOLOGY ORDERAB LES Performing Organization Address City/[facility]/ZIP Co de Phone Number [facility] [place] [address] * (ABNORMAL) POC, GLUCOSE (12/20/2023 7:29 PM EDT) Glucometer, POC 228(H) 65 - 199 mg/dL 12/20/2023 7:29 PM EDT [facility] Comment:Supplemental ranges: <140 mg/dL before meals <180 mg/dL all other times of the day. Blood CAPILLARY BLOOD / Unknown 12/20/2023 7:29 PM EDT 12/20/2023 7:29 PM EDT Bailey Meadows MD POINT OF CARE TEST O RDERACHARLI Performing Organization Address [facility]/ZIP Co de Phone Number [facility] [place] [address] * (ABNORMAL) POC, GLUCOSE (12/20/2023 4:36 PM EDT) Glucometer, POC 294(H) 65 - 199 mg/dL 12/20/2023 4:37 PM EDT [facility] Comment:Supplemental ranges: <140 mg/dL before meals <180 mg/dL all other times of the day. Blood CAPILLARY BLOOD / Unknown 12/20/2023 4:36 PM EDT 12/20/2023 4:37 PM EDT Bailey Meadows MD POINT OF CARE TEST O RDRACHELL [facility] [place] [address] * (ABNORMAL) POC, GLUCOSE (12/20/2023 2:12 PM EDT) Glucometer, POC 309(H) 65 - 199 mg/dL 12/20/2023 2:12 PM EDT [facility] Comment:Supplemental ranges: <140 mg/dL before meals <180 mg/dL all other times of the day. Blood CAPILLARY BLOOD / Unknown 12/20/2023 2:12 PM EDT 12/20/2023 2:12 PM EDT Bailey Meadows MD POINT OF CARE TEST O [place] [facility] [place] [address] * (ABNORMAL) POC, GLUCOSE (12/20/2023 11:37 AM EDT) Glucometer, POC 520(HHH) 65 - 199 mg/dL 12/20/2023 11:39 AM EDT [facility] Comment:Supplemental ranges: <140 mg/dL before meals <180 mg/dL all other times of the day. Blood CAPILLARY BLOOD / Unknown 12/20/2023 11:37 AM EDT 12/20/2023 11:39 AM EDT Bailey Meadows MD POINT OF CARE TEST O [place] Performing Organization Address [facility] Co de Phone Number [facility] [place] [address] * POC, GLUCOSE (12/20/2023 10:58 AM EDT) Glucometer, POC 176 65 - 199 mg/dL 12/20/2023 10:58 AM EDT [facility] Comment:Supplemental ranges: <140 mg/dL before meals <180 mg/dL all other times of the day. Blood CAPILLARY BLOOD / Unknown 12/20/2023 10:58 AM EDT 12/20/2023 10:58 AM EDT Bailey Meadows MD POINT OF CARE TEST [place] Performing Organization Address City/[facility]/ZIP Co de Phone Number [facility] [place] [address] * (ABNORMAL) POC, GLUCOSE (12/20/2023 6:05 AM EDT) Glucometer, POC 205(H) 65 - 199 mg/dL 12/20/2023 6:06 AM EDT [facility] Comment:Supplemental ranges: <140 mg/dL before meals <180 mg/dL all other times of the day. Blood CAPILLARY BLOOD / Unknown 12/20/2023 6:05 AM EDT 12/20/2023 6:06 AM EDT Bailey Meadows MD POINT OF CARE TEST O [place] Performing Organization Address City/[facility]/ZIP Co de Phone Number [facility] [place] [address] * Magnesium (12/20/2023 4:31 AM EDT) Magnesium 0.96 0.69 - 1.07 mMol/L 12/20/2023 5:19 AM EDT [facility] Blood VENOUS BLOOD SPECIMEN / Unknown IP Care Team Draw / Unknown 12/20/2023 4:31 AM EDT 12/20/2023 4:48 AM EDT Bailey Meadows MD CHEMISTRY ORDERABLES Performing Organization Address [facility] Co de Phone Number [facility] [place] [address] * (ABNORMAL) Phosphorus (12/20/2023 4:31 AM EDT) Phosphorus 5.6(H) 2.5 - 4.5 mg/dL 12/20/2023 5:19 AM EDT [facility] Blood VENOUS BLOOD SPECIMEN / Unknown IP Care Team Draw / Unknown 12/20/2023 4:31 AM EDT 12/20/2023 4:48 AM EDT Bailey Meadows MD CHEMISTRY ORDERABLES Performing Organization Address City/[facility] Co de Phone Number [facility] [place] [address] * (ABNORMAL) Basic Metabolic Panel (12/20/2023 4:31 AM EDT) Glucose 197 65 - 199 mg/dL 12/20/2023 5:[address] [facility] Comment:Glucose Concentratio n >=200 mg/dL plus symptoms is consistent with Diabetes Mellitus. Blood Urea Nitrogen 49(H) 10 - 20 mg/dL 12/20/2023 5:[address] [facility] Creatinine 5.15(H) 0.80 - 1.50 mg/dL 12/20/2023 5:[address] [facility] Sodium 132(L) 135 - 145 mMol/L 12/20/2023 5:[address] [facility] Potassium 4.0 3.5 - 5.0 mMol/L 12/20/2023 5:[address] [facility] Chloride 95(L) 98 - 107 mMol/L 12/20/2023 5:[address] [facility] Carbon Dioxide 27 22 - 31 mMol/L 12/20/2023 5:[address] [facility] Anion Gap 10 5 - 15 mMol/L 12/20/2023 5:[address] [facility] Calcium 8.9 8.5 - 10.5 mg/dL 12/20/2023 5:[address] [facility] Est Glomerular Filtration Rate - Male 13 mL/min/1. 73 m?? 12/20/2023 5:[address] [facility] Comment: This patient's estimated GFR [...] Unknown IP Care Team Draw / Unknown 12/20/2023 4:31 AM EDT 12/20/2023 4:48 AM EDT Loi Encinas MD CHEMISTRY ORDERABL ES [facility] [place] [address] * (ABNORMAL) CBC (with Diff) (12/20/2023 4:31 AM EDT) White Blood Cell 10.90(H) 4.00 - 9.50 x10(3)/mc L 12/20/2023 4:58 AM EDT [facility] Red Blood Cell 3.79(L) 4.58 - 5.54 x10(6)/mc L 12/20/2023 4:58 AM EDT [facility] Hemoglobin 8.2(L) 13.7 - 16.5 g/dL 12/20/2023 4:58 AM EDT [facility] Hematocrit 28.2(L) 40.5 - 48.5 % 12/20/2023 4:58 AM EDT [facility] Mean Cell Volume 74.4(L) 82.9 - 93.1 fL 12/20/2023 4:58 AM EDT [facility] Mean Cell Hemoglobin 21.6(L) 27.5 - 32.1 pg 12/20/2023 4:58 AM EDT [facility] Mean Cell Hemoglobin Concentration 29.1(L) 32.0 - 35.7 g/dL 12/20/2023 4:58 AM EDT [facility] Platelet 300 145 - 357 x10(3)/mc L 12/20/2023 4:58 AM EDT [facility] Mean Platelet Volume 10.3 7.6 - 12.9 fL 12/20/2023 4:58 AM EDT [facility] RDW Standard Deviation 55.5(H) 36.0 - 45.0 fL 12/20/2023 4:58 AM EDT [facility] RDW coefficient of variation 20.7(H) 11.4 - 13.8 % 12/20/2023 4:[address] [facility] NRBC% auto 0.0 % 12/20/2023 4:[address] [facility] NRBC Absolute <0.01 <0.01 x10(3)/mc L 12/20/2023 4:[address] [facility] Neutrophil % 72.3 % 12/20/2023 4:[address] [facility] Neutrophil Absolute (ANC) - Automated 7.89(H) 1.70 - 6.10 x10(3)/mc L 12/20/2023 4:[address] [facility] Lymph % 12.1 % 12/20/2023 4:[address] [facility] Lymph Absolute 1.32 0.90 - 3.20 x10(3)/mc L 12/20/2023 4:[address] [facility] Monocyte % 12.6 % 12/20/2023 4:[address] [facility] Monocyte Absolute 1.37(H) 0.30 - 0.90 x10(3)/mc L 12/20/2023 4:[address] [facility] Eos % 2.0 % 12/20/2023 4:[address] [facility] Eos Absolute 0.22 0.00 - 0.40 x10(3)/mc L 12/20/2023 4:[address] [facility] Basophil % 0.4 % 12/20/2023 4:[address] [facility] Baso Absolute 0.04 0.00 - 0.10 x10(3)/mc L 12/20/2023 4:[address] [facility] Immature Gran % 0.6 % 4:[address] [facility] Immature Gran Absolute 0.06(H) 0.00 - 0.04 x10(3)/mc L 12/20/2023 4:58 AM EDT [facility] Blood VENOUS BLOOD SPECIMEN / Unknown IP Care Team Draw / Unknown 12/20/2023 4:31 AM EDT 12/20/2023 4:49 AM EDT Loi Encinas MD HEMATOLOGY ORDERAB LES Performing Organization Address City/[facility]/ZIP Co de Phone Number [facility] [place] [address] * (ABNORMAL) POC, GLUCOSE (12/19/2023 7:21 PM EDT) Glucometer, POC 254(H) 65 - 199 mg/dL 12/19/2023 7:21 PM EDT [facility] Comment:Supplemental ranges: <140 mg/dL before meals <180 mg/dL all other times of the day. Blood CAPILLARY BLOOD / Unknown 12/19/2023 7:21 PM EDT 12/19/2023 7:21 PM EDT Bailey Meadows MD POINT OF CARE TEST O [place] Performing Organization Address [facility]/ZIP Co de Phone Number [facility] [place] [address] * (ABNORMAL) POC, GLUCOSE (12/19/2023 4:06 PM EDT) Glucometer, POC 213(H) 65 - 199 mg/dL 12/19/2023 4:07 PM EDT [facility] Comment:Supplemental ranges: <140 mg/dL before meals <180 mg/dL all other times of the day. Blood CAPILLARY BLOOD / Unknown 12/19/2023 4:06 PM EDT 12/19/2023 4:07 PM EDT Bailey Meadows MD POINT OF CARE TEST O RDRACHELL Performing Organization Address City/[facility]/ZIP Co de Phone Number [facility] [place] [address] * (ABNORMAL) POC, GLUCOSE (12/19/2023 12:02 PM EDT) Glucometer, POC 221(H) 65 - 199 mg/dL 12/19/2023 12:02 PM EDT [facility] Comment:Supplemental ranges: <140 mg/dL before meals <180 mg/dL all other times of the day. Blood CAPILLARY BLOOD / Unknown 12/19/2023 12:02 PM EDT 12/19/2023 12:02 PM EDT Bailey Meadows MD POINT OF CARE TEST O RDERABLES Performing Organization Address City/[facility]/ZIP Co de Phone Number [facility] [place] [address] * (ABNORMAL) POC, GLUCOSE (12/19/2023 6:46 AM EDT) Glucometer, POC 210(H) 65 - 199 mg/dL 12/19/2023 6:47 AM EDT [facility] Comment:Supplemental ranges: <140 mg/dL before meals <180 mg/dL all other times of the day. Blood CAPILLARY BLOOD / Unknown 12/19/2023 6:46 AM EDT 12/19/2023 6:47 AM EDT Bailey Meadows MD POINT OF CARE TEST O RDERABLES Performing Organization Address City/[facility]/ZIP Co de Phone Number [facility] [place] [address] * Magnesium (12/19/2023 2:57 AM EDT) Magnesium 0.86 0.69 - 1.07 mMol/L 12/19/2023 3:37 AM EDT [facility] Blood VENOUS BLOOD SPECIMEN / Unknown IP Care Team Draw / Unknown 12/19/2023 2:57 AM EDT 12/19/2023 3:07 AM EDT Bailey Meadows MD CHEMISTRY ORDERABLES Performing Organization Address City/[facility]/ZIP Co de Phone Number [facility] [place] [address] * Phosphorus (12/19/2023 2:57 AM EDT) Phosphorus 4.1 2.5 - 4.5 mg/dL 12/19/2023 3:37 AM EDT [facility] Blood VENOUS BLOOD SPECIMEN / Unknown IP Care Team Draw / Unknown 12/19/2023 2:57 AM EDT 12/19/2023 3:07 AM EDT Bailey Meadows MD CHEMISTRY ORDERABLES [facility] [place] [address] * (ABNORMAL) Basic Metabolic Panel (12/19/2023 2:57 AM EDT) Glucose 190 65 - 199 mg/dL 12/19/2023 3:37 AM EDT [facility] Comment:Glucose Concentratio n >=200 mg/dL plus symptoms is consistent with Diabetes Mellitus. Blood Urea Nitrogen 35(H) 10 - 20 mg/dL 12/19/2023 3:37 AM EDT [facility] Creatinine 3.35(H) 0.80 - 1.50 mg/dL 12/19/2023 3:37 AM EDT [facility] Sodium 137 135 - 145 mMol/L 12/19/2023 3:37 AM EDT [facility] Potassium 4.3 3.5 - 5.0 mMol/L 12/19/2023 3:37 AM EDT [facility] Chloride 98 98 - 107 mMol/L 12/19/2023 3:37 AM EDT [facility] Carbon Dioxide 26 22 - 31 mMol/L 12/19/2023 3:37 AM EDT [facility] Anion Gap 13 5 - 15 mMol/L 12/19/2023 3:37 AM EDT [facility] Calcium 8.7 8.5 - 10.5 mg/dL 12/19/2023 3:37 AM EDT [facility] Est Glomerular Filtration Rate - Male 22 mL/min/1. 73 m?? 12/19/2023 3:37 AM EDT [facility] Comment: This patient's estimated GFR [...] Unknown IP Care Team Draw / Unknown 12/19/2023 2:57 AM EDT 12/19/2023 3:07 AM EDT Loi Encinas MD CHEMISTRY ORDERABL ES [facility] [place] [address] * (ABNORMAL) CBC (with Diff) (12/19/2023 2:57 AM EDT) White Blood Cell 10.66(H) 4.00 - 9.50 x10(3)/mc L 12/19/2023 3:13 AM EDT [facility] Red Blood Cell 3.89(L) 4.58 - 5.54 x10(6)/mc L 12/19/2023 3:13 AM EDT [facility] Hemoglobin 8.3(L) 13.7 - 16.5 g/dL 12/19/2023 3:13 AM EDT [facility] Hematocrit 28.6(L) 40.5 - 48.5 % 12/19/2023 3:13 AM EDT [facility] Mean Cell Volume 73.5(L) 82.9 - 93.1 fL 12/19/2023 3:13 AM EDT [facility] Mean Cell Hemoglobin 21.3(L) 27.5 - 32.1 pg 12/19/2023 3:[address] [facility] Mean Cell Hemoglobin Concentration 29.0(L) 32.0 - 35.7 g/dL 12/19/2023 3:[address] [facility] Platelet 261 145 - 357 x10(3)/mc L 12/19/2023 3:[address] [facility] Mean Platelet Volume 10.6 7.6 - 12.9 fL 12/19/2023 3:[address] [facility] RDW Standard Deviation 54.9(H) 36.0 - 45.0 fL 12/19/2023 3:[address] [facility] RDW coefficient of variation 20.6(H) 11.4 - 13.8 % 12/19/2023 3:[address] [facility] NRBC% auto 0.0 % 12/19/2023 3:[address] [facility] NRBC Absolute <0.01 <0.01 x10(3)/mc L 12/19/2023 3:[address] [facility] Neutrophil % 74.0 % 12/19/2023 3:[address] [facility] Neutrophil Absolute (ANC) - Automated 7.90(H) 1.70 - 6.10 x10(3)/mc L 12/19/2023 3:[address] [facility] Lymph % 10.8 % 12/19/2023 3:[address] [facility] Lymph Absolute 1.15 0.90 - 3.20 x10(3)/mc L 12/19/2023 3:[address] [facility] Monocyte % 12.6 % 12/19/2023 3:[address] [facility] Monocyte Absolute 1.34(H) 0.30 - 0.90 x10(3)/mc L 12/19/2023 3:[address] [facility] Eos % 1.4 % 12/19/2023 3:13 AM EDT [facility] Eos Absolute 0.15 0.00 - 0.40 x10(3)/mc L 12/19/2023 3:13 AM EDT [facility] Basophil % 0.6 % 12/19/2023 3:13 AM EDT [facility] Baso Absolute 0.06 0.00 - 0.10 x10(3)/mc L 12/19/2023 3:13 AM EDT [facility] Immature Gran % 0.6 % 3:13 AM EDT [facility] Immature Gran Absolute 0.06(H) 0.00 - 0.04 x10(3)/mc L 12/19/2023 3:13 AM EDT [facility] Blood VENOUS BLOOD SPECIMEN / Unknown IP Care Team Draw / Unknown 12/19/2023 2:57 AM EDT 12/19/2023 3:07 AM EDT Loi Encinas MD HEMATOLOGY ORDERAB LES [facility] [place] [address] * POC, GLUCOSE (12/18/2023 7:47 PM EDT) [facility] Signature Glucometer, POC 190 65 - 199 mg/dL 12/18/2023 7:48 PM EDT [facility] Comment:Supplemental ranges: <140 mg/dL before meals <180 mg/dL all other times of the day. Blood CAPILLARY BLOOD / Unknown 12/18/2023 7:47 PM EDT 12/18/2023 7:48 PM EDT Loi Encinas MD POINT OF CARE TEST ORDERABLES [facility] [place] [address] * (ABNORMAL) POC, GLUCOSE (12/18/2023 4:52 PM EDT) Glucometer, POC 251(H) 65 - 199 mg/dL 12/18/2023 4:58 PM EDT [facility] Comment:Supplemental ranges: <140 mg/dL before meals <180 mg/dL all other times of the day. Blood CAPILLARY BLOOD / Unknown 12/18/2023 4:52 PM EDT 12/18/2023 4:58 PM EDT Loi Encinas MD POINT OF CARE TEST ORDERABLES [facility] [place] [address] * POC, GLUCOSE (12/18/2023 3:49 PM EDT) Glucometer, POC 114 65 - 199 mg/dL 12/18/2023 3:51 PM EDT [facility] Comment:Supplemental ranges: <140 mg/dL before meals <180 mg/dL all other times of the day. Blood CAPILLARY BLOOD / Unknown 12/18/2023 3:49 PM EDT 12/18/2023 3:51 PM EDT Loi Encinas MD POINT OF CARE TEST ORDERABLES Performing Organization Address City/[facility]/ZIP Co de Phone Number [facility] [place] [address] * (ABNORMAL) Hemoglobin and Hematocrit, blood (12/18/2023 1:31 PM EDT) Hemoglobin 8.2(L) 13.7 - 16.5 g/dL 12/18/2023 1:40 PM EDT [facility] Hematocrit 28.0(L) 40.5 - 48.5 % 12/18/2023 1:40 PM EDT [facility] Blood VENOUS BLOOD SPECIMEN / Unknown IP Care Team Draw / Unknown 12/18/2023 1:31 PM EDT 12/18/2023 1:35 PM EDT Loi Encinas MD HEMATOLOGY ORDERAB LES [facility] [place] [address] * (ABNORMAL) POC, GLUCOSE (12/18/2023 12:09 PM EDT) Glucometer, POC 280(H) 65 - 199 mg/dL 12/18/2023 12:10 PM EDT [facility] Comment:Supplemental ranges: <140 mg/dL before meals <180 mg/dL all other times of the day. Blood CAPILLARY BLOOD / Unknown 12/18/2023 12:09 PM EDT 12/18/2023 12:10 PM EDT Loi Encinas MD POINT OF CARE TEST ORDERABLES Performing Organization Address City/[facility]/ZIP Co de Phone Number [facility] [place] [address] * (ABNORMAL) POC, GLUCOSE (12/18/2023 6:47 AM EDT) Glucometer, POC 230(H) 65 - 199 mg/dL 12/18/2023 6:48 AM EDT [facility] Comment:Supplemental ranges: <140 mg/dL before meals <180 mg/dL all other times of the day. Blood CAPILLARY BLOOD / Unknown 12/18/2023 6:47 AM EDT 12/18/2023 6:48 AM EDT Loi Encinas MD POINT OF CARE TEST ORDERABLES [facility] [place] [address] * Magnesium (12/18/2023 12:41 AM EDT) Magnesium 0.83 0.69 - 1.07 mMol/L 12/18/2023 1:22 AM EDT [facility] Blood VENOUS BLOOD SPECIMEN / Unknown IP Care Team Draw / Unknown 12/18/2023 12:41 AM EDT 12/18/2023 12:48 AM EDT Bailey Meadows MD CHEMISTRY ORDERABLES [facility] [place] [address] * Phosphorus (12/18/2023 12:41 AM EDT) Phosphorus 4.1 2.5 - 4.5 mg/dL 12/18/2023 1:22 AM EDT [facility] Blood VENOUS BLOOD SPECIMEN / Unknown IP Care Team Draw / Unknown 12/18/2023 12:41 AM EDT 12/18/2023 12:48 AM EDT Bailey Meadows MD CHEMISTRY ORDERABLES Performing Organization Address City/[facility]/ZIP Co de Phone Number [facility] [place] [address] * (ABNORMAL) Basic Metabolic Panel (12/18/2023 12:41 AM EDT) Glucose 227(H) 65 - 199 mg/dL 12/18/2023 1:22 AM EDT [facility] Comment:Glucose Concentratio n >=200 mg/dL plus symptoms is consistent with Diabetes Mellitus. Blood Urea Nitrogen 51(H) 10 - 20 mg/dL 12/18/2023 1:22 AM EDT [facility] Creatinine 3.00(H) 0.80 - 1.50 mg/dL 12/18/2023 1:22 AM EDT [facility] Sodium 137 135 - 145 mMol/L 12/18/2023 1:22 AM EDT [facility] Potassium 4.0 3.5 - 5.0 mMol/L 12/18/2023 1:22 AM EDT [facility] Chloride 98 98 - 107 mMol/L 12/18/2023 1:22 AM EDT [facility] Carbon Dioxide 28 22 - 31 mMol/L 12/18/2023 1:22 AM EDT [facility] Anion Gap 11 5 - 15 mMol/L 12/18/2023 1:22 AM EDT [facility] Calcium 8.6 8.5 - 10.5 mg/dL 12/18/2023 1:22 AM EDT [facility] Est Glomerular Filtration Rate - Male 25 mL/min/1. 73 m?? 12/18/2023 1:22 AM EDT [facility] Comment: This patient's estimated GFR [...] IP Care Team Draw / Unknown 12/18/2023 12:41 AM EDT 12/18/2023 12:48 AM EDT Loi Encinas MD CHEMISTRY ORDERABL ES [facility] [place] [address] * (ABNORMAL) CBC (with Diff) (12/18/2023 12:41 AM EDT) White Blood Cell 10.57(H) 4.00 - 9.50 x10(3)/mc L 12/18/2023 12:57 AM EDT [facility] Red Blood Cell 3.77(L) 4.58 - 5.54 x10(6)/mc L 12/18/2023 12:57 AM EDT [facility] Hemoglobin 8.1(L) 13.7 - 16.5 g/dL 12/18/2023 12:[address] [facility] Hematocrit 27.7(L) 40.5 - 48.5 % 12/18/2023 12:[address] [facility] Mean Cell Volume 73.5(L) 82.9 - 93.1 fL 12/18/2023 12:[address] [facility] Mean Cell Hemoglobin 21.5(L) 27.5 - 32.1 pg 12/18/2023 12:[address] [facility] Mean Cell Hemoglobin Concentration 29.2(L) 32.0 - 35.7 g/dL 12/18/2023 12:[address] [facility] Platelet 211 145 - 357 x10(3)/mc L 12/18/2023 12:[address] [facility] Mean Platelet Volume 10.4 7.6 - 12.9 fL 12/18/2023 12:[address] [facility] RDW Standard Deviation 54.8(H) 36.0 - 45.0 fL 12/18/2023 12:[address] [facility] RDW coefficient of variation 20.6(H) 11.4 - 13.8 % 12/18/2023 12:[address] [facility] NRBC% auto 0.0 % 12/18/2023 12:[address] [facility] NRBC Absolute <0.01 <0.01 x10(3)/mc L 12/18/2023 12:[address] [facility] Neutrophil % 84.3 % 12/18/2023 12:[address] [facility] Neutrophil Absolute (ANC) - Automated 8.91(H) 1.70 - 6.10 x10(3)/mc L 12/18/2023 12:[address] [facility] Lymph % 6.7 % 12/18/2023 12:[address] [facility] Lymph Absolute 0.71(L) 0.90 - 3.20 x10(3)/mc L 12/18/2023 12:57 AM EDT [facility] Monocyte % 6.6 % 12/18/2023 12:57 AM EDT [facility] Monocyte Absolute 0.70 0.30 - 0.90 x10(3)/mc L 12/18/2023 12:57 AM EDT [facility] Eos % 1.5 % 12/18/2023 12:57 AM EDT [facility] Eos Absolute 0.16 0.00 - 0.40 x10(3)/mc L 12/18/2023 12:57 AM EDT [facility] Basophil % 0.4 % 12/18/2023 12:57 AM EDT [facility] Baso Absolute 0.04 0.00 - 0.10 x10(3)/mc L 12/18/2023 12:57 AM EDT [facility] Immature Gran % 0.5 % 12:57 AM EDT [facility] Immature Gran Absolute 0.05(H) 0.00 - 0.04 x10(3)/mc L 12/18/2023 12:57 AM EDT [facility] Blood VENOUS BLOOD SPECIMEN / Unknown IP Care Team Draw / Unknown 12/18/2023 12:41 AM EDT 12/18/2023 12:48 AM EDT Loi Encinas MD HEMATOLOGY ORDERAB LES [facility] [place] [address] * (ABNORMAL) POC, GLUCOSE (12/17/2023 9:15 PM EDT) [facility] Signature Glucometer, POC 214(H) 65 - 199 mg/dL 12/17/2023 9:15 PM EDT [facility] Comment:Supplemental ranges: <140 mg/dL before meals <180 mg/dL all other times of the day. Blood CAPILLARY BLOOD / Unknown 12/17/2023 9:15 PM EDT 12/17/2023 9:15 PM EDT Bailey Meadows MD POINT OF CARE TEST O [place] Performing Organization Address City/[facility]/ZIP Co de Phone Number [facility] [place] [address] * (ABNORMAL) POC, GLUCOSE (12/17/2023 5:13 PM EDT) Glucometer, POC 229(H) 65 - 199 mg/dL 12/17/2023 5:13 PM EDT [facility] Comment:Supplemental ranges: <140 mg/dL before meals <180 mg/dL all other times of the day. Blood CAPILLARY BLOOD / Unknown 12/17/2023 5:13 PM EDT 12/17/2023 5:13 PM EDT Bailey Meadows MD POINT OF CARE TEST O [place] Performing Organization Address [facility] Co de Phone Number [facility] [place] [address] * (ABNORMAL) POC, GLUCOSE (12/17/2023 12:14 PM EDT) Glucometer, POC 224(H) 65 - 199 mg/dL 12/17/2023 12:14 PM EDT [facility] Comment:Supplemental ranges: <140 mg/dL before meals <180 mg/dL all other times of the day. Blood CAPILLARY BLOOD / Unknown 12/17/2023 12:14 PM EDT 12/17/2023 12:14 PM EDT Bailey Meadows MD POINT OF CARE TEST O [place] [facility] [place] [address] * POC, GLUCOSE (12/17/2023 6:10 AM EDT) Glucometer, POC 155 65 - 199 mg/dL 12/17/2023 6:10 AM EDT [facility] Comment:Supplemental ranges: <140 mg/dL before meals <180 mg/dL all other times of the day. Blood CAPILLARY BLOOD / Unknown 12/17/2023 6:10 AM EDT 12/17/2023 6:10 AM EDT Bailey Meadows MD POINT OF CARE TEST O RDERABLES [facility] [place] [address] * XR Chest One View (12/17/2023 5:34 AM EDT) WORKSTATION ID [id number] RAD Anatomical Region Laterality Modality Chest N/A [...] who have questions please contact the health customer care specialist that requested your imaging first. [...] patients who have questions please contactthe health customer care specialist that requested your imaging first. Bailey Meadows MD IMG DX ORDERABLES * (ABNORMAL) Basic Metabolic Panel (12/17/2023 2:37 AM EDT) Glucose 164 65 - 199 mg/dL 12/17/2023 3:19 AM EDT [facility] Comment:Glucose Concentratio n >=200 mg/dL plus symptoms is consistent with Diabetes Mellitus. Blood Urea Nitrogen 42(H) 10 - 20 mg/dL 12/17/2023 3:19 AM EDT [facility] Creatinine 2.81(H) 0.80 - 1.50 mg/dL 12/17/2023 3:19 AM EDT [facility] Sodium 140 135 - 145 mMol/L 12/17/2023 3:19 AM EDT [facility] Potassium 3.9 3.5 - 5.0 mMol/L 12/17/2023 3:19 AM T [facility] Chloride 102 98 - 107 mMol/L 12/17[facility]23 [facility] Carbon Dioxide 28 22 - 31 mMol/L 12/17/2023 3:[facility] Anion Gap 10 5 - 15 mMol/L 12/17/2023 3:19 AM T [facility] Calcium 8.8 8.5 - 10.5 mg/dL 12/17/2023 3:[address] [facility] Est Glomerular Filtration Rate - Male 27 mL/min/1. 73 m?? 12/17/2023 3:[address] [facility] Comment: This patient's estimated GFR [...] Unknown IP Care Team Draw / Unknown 12/17/2023 2:37 AM EDT 12/17/2023 2:45 AM EDT Loi Encinas MD CHEMISTRY ORDERABL ES [facility] [place] [address] * (ABNORMAL) CBC (with Diff) (12/17/2023 2:37 AM EDT) White Blood Cell 8.54 4.00 - 9.50 x10(3)/mc L 12/17/2023 3:[address] [facility] Red Blood Cell 3.74(L) 4.58 - 5.54 x10(6)/mc L 12/17/2023 3:[address] [facility] Hemoglobin 8.1(L) 13.7 - 16.5 g/dL 12/17/2023 3:[address] [facility] Hematocrit 28.0(L) 40.5 - 48.5 % 12/17/2023 3:[address] [facility] Mean Cell Volume 74.9(L) 82.9 - 93.1 fL 12/17/2023 3:[address] [facility] Mean Cell Hemoglobin 21.7(L) 27.5 - 32.1 pg 12/17/2023 3:[address] [facility] Mean Cell Hemoglobin Concentration 28.9(L) 32.0 - 35.7 g/dL 12/17/2023 3:[address] [facility] Platelet 173 145 - 357 x10(3)/mc L 12/17/2023 3:[address] [facility] Mean Platelet Volume 10.6 7.6 - 12.9 fL 12/17/2023 3:[address] [facility] RDW Standard Deviation 56.0(H) 36.0 - 45.0 fL 12/17/2023 3:[address] [facility] RDW coefficient of variation 20.8(H) 11.4 - 13.8 % 12/17/2023 3:[address] [facility] NRBC% auto 0.0 % 12/17/2023 3:[address] [facility] NRBC Absolute <0.01 <0.01 x10(3)/mc L 12/17/2023 3:[address] [facility] Neutrophil % 81.3 % 12/17/2023 3:[address] [facility] Neutrophil Absolute (ANC) - Automated 6.94(H) 1.70 - 6.10 x10(3)/mc L 12/17/2023 3:00 AM EDT [facility] Lymph % 8.8 % 12/17/2023 3:00 AM EDT [facility] Lymph Absolute 0.75(L) 0.90 - 3.20 x10(3)/mc L 12/17/2023 3:00 AM EDT [facility] Monocyte % 6.4 % 12/17/2023 3:00 AM EDT [facility] Monocyte Absolute 0.55 0.30 - 0.90 x10(3)/mc L 12/17/2023 3:00 AM EDT [facility] Eos % 2.3 % 12/17/2023 3:00 AM EDT [facility] Eos Absolute 0.20 0.00 - 0.40 x10(3)/mc L 12/17/2023 3:00 AM EDT [facility] Basophil % 0.6 % 12/17/2023 3:00 AM EDT [facility] Baso Absolute 0.05 0.00 - 0.10 x10(3)/mc L 12/17/2023 3:00 AM EDT [facility] Immature Gran % 0.6 % 3:00 AM EDT [facility] Immature Gran Absolute 0.05(H) 0.00 - 0.04 x10(3)/mc L 12/17/2023 3:00 AM EDT [facility] Blood VENOUS BLOOD SPECIMEN / Unknown IP Care Team Draw / Unknown 12/17/2023 2:37 AM EDT 12/17/2023 2:45 AM EDT Loi Encinas MD HEMATOLOGY ORDERAB LES [facility] [place] [address] * POC, GLUCOSE (12/16/2023 9:31 PM EDT) [facility] Glucometer, POC 184 65 - 199 mg/dL 12/16/2023 9:31 PM EDT [facility] Comment:Supplemental ranges: <140 mg/dL before meals <180 mg/dL all other times of the day. Blood CAPILLARY BLOOD / Unknown 12/16/2023 9:31 PM EDT 12/16/2023 9:31 PM EDT Bailey Meadows MD POINT OF CARE TEST O RDERACHARLI Performing Organization Address City/[facility]/ZIP Co de Phone Number [facility] [place] [address] * POC, GLUCOSE (12/16/2023 5:14 PM EDT) Glucometer, POC 183 65 - 199 mg/dL 12/16/2023 5:14 PM EDT [facility] Comment:Supplemental ranges: <140 mg/dL before meals <180 mg/dL all other times of the day. Blood CAPILLARY BLOOD / Unknown 12/16/2023 5:14 PM EDT 12/16/2023 5:14 PM EDT Bailey Meadows MD POINT OF CARE TEST O RDERACHARLI Performing Organization Address [facility] Co de Phone Number [facility] [place] [address] * POC, GLUCOSE (12/16/2023 12:14 PM EDT) Glucometer, POC 170 65 - 199 mg/dL 12/16/2023 12:15 PM EDT [facility] Comment:Supplemental ranges: <140 mg/dL before meals <180 mg/dL all other times of the day. Blood CAPILLARY BLOOD / Unknown 12/16/2023 12:14 PM EDT 12/16/2023 12:15 PM EDT Bailey Meadows MD POINT OF CARE TEST O RDERACHARLI Performing Organization Address City/[facility]/ZIP Co de Phone Number [facility] [place] [address] * POC, GLUCOSE (12/16/2023 6:09 AM EDT) Glucometer, POC 146 65 - 199 mg/dL 12/16/2023 6:09 AM EDT [facility] Comment:Supplemental ranges: <140 mg/dL before meals <180 mg/dL all other times of the day. Blood CAPILLARY BLOOD / Unknown 12/16/2023 6:09 AM EDT 12/16/2023 6:09 AM EDT Loi Encinas MD POINT OF CARE TEST ORDERABLES [facility] [place] [address] * (ABNORMAL) Basic Metabolic Panel (12/16/2023 1:13 AM EDT) Glucose 158 65 - 199 mg/dL 12/16/2023 1:57 AM EDT [facility] Comment:Glucose Concentratio n >=200 mg/dL plus symptoms is consistent with Diabetes Mellitus. Blood Urea Nitrogen 32(H) 10 - 20 mg/dL 12/16/2023 1:57 AM EDT [facility] Creatinine 2.31(H) 0.80 - 1.50 mg/dL 12/16/2023 1:57 AM EDT [facility] Sodium 137 135 - 145 mMol/L 12/16/2023 1:57 AM EDT [facility] Potassium 4.0 3.5 - 5.0 mMol/L 12/16/2023 1:57 AM EDT [facility] Chloride 100 98 - 107 mMol/L 12/16/2023 1:57 AM EDT [facility] Carbon Dioxide 28 22 - 31 mMol/L 12/16[facility]23 [facility] Anion Gap 9 5 - 15 mMol/L 12/16/2023 1:57 [facility] Calcium 8.6 8.5 - 10.5 mg/dL 12/16/2023 1:57 AM EDT [facility] Est Glomerular Filtration Rate - Male 34 mL/min/1. 73 m?? 12/16/2023 1:57 AM EDT [facility] Comment: This patient's estimated GFR [...] Unknown IP Care Team Draw / Unknown 12/16/2023 1:13 AM EDT 12/16/2023 1:19 AM EDT Loi Encinas MD CHEMISTRY ORDERABL ES [facility] [place] [address] * (ABNORMAL) CBC (with Diff) (12/16/2023 1:13 AM EDT) White Blood Cell 9.30 4.00 - 9.50 x10(3)/mc L 12/16/2023 1:26 AM EDT [facility] Red Blood Cell 3.74(L) 4.58 - 5.54 x10(6)/mc L 12/16/2023 1:26 AM EDT [facility] Hemoglobin 8.0(L) 13.7 - 16.5 g/dL 12/16/2023 1:26 AM EDT [facility] Hematocrit 27.8(L) 40.5 - 48.5 % 12/16/2023 1:26 AM EDT [facility] Mean Cell Volume 74.3(L) 82.9 - 93.1 fL 12/16/2023 1:[address] [facility] Mean Cell Hemoglobin 21.4(L) 27.5 - 32.1 pg 12/16/2023 1:[address] [facility] Mean Cell Hemoglobin Concentration 28.8(L) 32.0 - 35.7 g/dL 12/16/2023 1:[address] [facility] Platelet 137(L) 145 - 357 x10(3)/mc L 12/16/2023 1:[address] [facility] Mean Platelet Volume 10.1 7.6 - 12.9 fL 12/16/2023 1:[address] [facility] RDW Standard Deviation 55.8(H) 36.0 - 45.0 fL 12/16/2023 1:[address] [facility] RDW coefficient of variation 21.0(H) 11.4 - 13.8 % 12/16/2023 1:[address] [facility] NRBC% auto 0.0 % 12/16/2023 1:[address] [facility] NRBC Absolute <0.01 <0.01 x10(3)/mc L 12/16/2023 1:[address] [facility] Neutrophil % 80.7 % 12/16/2023 1:[address] [facility] Neutrophil Absolute (ANC) - Automated 7.50(H) 1.70 - 6.10 x10(3)/mc L 12/16/2023 1:[address] [facility] Lymph % 9.1 % 12/16/2023 1:[address] [facility] Lymph Absolute 0.85(L) 0.90 - 3.20 x10(3)/mc L 12/16/2023 1:[address] [facility] Monocyte % 6.9 % 12/16/2023 1:[address] [facility] Monocyte Absolute 0.64 0.30 - 0.90 x10(3)/mc L 12/16/2023 1:26 AM EDT [facility] Eos % 2.6 % 12/16/2023 1:26 AM EDT [facility] Eos Absolute 0.24 0.00 - 0.40 x10(3)/mc L 12/16/2023 1:26 AM EDT [facility] Basophil % 0.4 % 12/16/2023 1:26 AM EDT [facility] Baso Absolute 0.04 0.00 - 0.10 x10(3)/mc L 12/16/2023 1:26 AM EDT [facility] Immature Gran % 0.3 % 1:26 AM EDT [facility] Immature Gran Absolute <0.04 0.00 - 0.04 x10(3)/mc L 12/16/2023 1:26 AM EDT [facility] Blood VENOUS BLOOD SPECIMEN / Unknown IP Care Team Draw / Unknown 12/16/2023 1:13 AM EDT 12/16/2023 1:19 AM EDT Loi Encinas MD HEMATOLOGY ORDERAB LES [facility] [place] [address] * POC, GLUCOSE (12/15/2023 11:26 PM EDT) [facility] Signature Glucometer, POC 163 65 - 199 mg/dL 12/15/2023 11:26 PM EDT [facility] Comment:Supplemental ranges: <140 mg/dL before meals <180 mg/dL all other times of the day. Blood CAPILLARY BLOOD / Unknown 12/15/2023 11:26 PM EDT 12/15/2023 11:26 PM EDT Loi Encinas MD POINT OF CARE TEST ORDERABLES Performing Organization Address City/[facility]/ZIP Co de Phone Number [facility] [place] [address] * POC, GLUCOSE (12/15/2023 7:46 PM EDT) Glucometer, POC 135 65 - 199 mg/dL 12/15/2023 7:47 PM EDT [facility] Comment:Supplemental ranges: <140 mg/dL before meals <180 mg/dL all other times of the day. Blood CAPILLARY BLOOD / Unknown 12/15/2023 7:46 PM EDT 12/15/2023 7:47 PM EDT Loi Encinas MD POINT OF CARE TEST ORDERABLES Performing Organization Address [facility]/ZIP Co de Phone Number [facility] [place] [address] * POC, GLUCOSE (12/15/2023 5:10 PM EDT) Glucometer, POC 112 65 - 199 mg/dL 12/15/2023 5:10 PM EDT [facility] Comment:Supplemental ranges: <140 mg/dL before meals <180 mg/dL all other times of the day. Blood CAPILLARY BLOOD / Unknown 12/15/2023 5:10 PM EDT 12/15/2023 5:10 PM EDT Loi Encinas MD POINT OF CARE TEST ORDERABLES Performing Organization Address City/[facility] Co de Phone Number [facility] [place] [address] * POC, GLUCOSE (12/15/2023 11:22 AM EDT) Glucometer, POC 195 65 - 199 mg/dL 12/15/2023 11:22 AM EDT [facility] Comment:Supplemental ranges: <140 mg/dL before meals <180 mg/dL all other times of the day. Blood CAPILLARY BLOOD / Unknown 12/15/2023 11:22 AM EDT 12/15/2023 11:22 AM EDT Loi Encinas MD POINT OF CARE TEST ORDERABLES Performing Organization Address City/[facility]/ZIP Co de Phone Number [facility] [place] [address] * POC, GLUCOSE (12/15/2023 9:34 AM EDT) Glucometer, POC 158 65 - 199 mg/dL 12/15/2023 9:34 AM EDT [facility] Comment:Supplemental ranges: <140 mg/dL before meals <180 mg/dL all other times of the day. Blood CAPILLARY BLOOD / Unknown 12/15/2023 9:34 AM EDT 12/15/2023 9:34 AM EDT Loi Encinas MD POINT OF CARE TEST ORDERABLES Performing Organization Address [facility] Co de Phone Number [facility] [place] [address] * POC, GLUCOSE (12/15/2023 6:56 AM EDT) Glucometer, POC 117 65 - 199 mg/dL 12/15/2023 6:56 AM EDT [facility] Comment:Supplemental ranges: <140 mg/dL before meals <180 mg/dL all other times of the day. Blood CAPILLARY BLOOD / Unknown 12/15/2023 6:56 AM EDT 12/15/2023 6:56 AM EDT Loi Encinas MD POINT OF CARE TEST ORDERABLES Performing Organization Address City/[facility]/ZIP Co de Phone Number [facility] [place] [address] * (ABNORMAL) Basic Metabolic Panel (12/15/2023 2:16 AM EDT) Glucose 130 65 - 199 mg/dL 12/15/2023 2:51 AM EDT [facility] Comment:Glucose Concentratio n >=200 mg/dL plus symptoms is consistent with Diabetes Mellitus. Blood Urea Nitrogen 37(H) 10 - 20 mg/dL 12/15/2023 2:[address] [facility] Creatinine 2.62(H) 0.80 - 1.50 mg/dL 12/15/2023 2:[address] [facility] Sodium 141 135 - 145 mMol/L 12/15/2023 2:[address] [facility] Potassium 4.2 3.5 - 5.0 mMol/L 12/15/2023 2:[address] [facility] Chloride 105 98 - 107 mMol/L 12/15/2023 2:[address] [facility] Carbon Dioxide 27 22 - 31 mMol/L 12/15/2023 2:[address] [facility] Anion Gap 9 5 - 15 mMol/L 12/15/2023 2:[address] [facility] Calcium 8.5 8.5 - 10.5 mg/dL 12/15/2023 2:[address] [facility] Est Glomerular Filtration Rate - Male 30 mL/min/1. 73 m?? 12/15/2023 2:[address] [facility] Comment: This patient's estimated GFR [...] Unknown IP Care Team Draw / Unknown 12/15/2023 2:16 AM EDT 12/15/2023 2:21 AM EDT Loi Encinas MD CHEMISTRY ORDERABL ES [facility] [place] [address] * (ABNORMAL) CBC (with Diff) (12/15/2023 2:16 AM EDT) White Blood Cell 7.76 4.00 - 9.50 x10(3)/mc L 12/15/2023 2:[address] [facility] Red Blood Cell 3.68(L) 4.58 - 5.54 x10(6)/mc L 12/15/2023 2:[address] [facility] Hemoglobin 8.0(L) 13.7 - 16.5 g/dL 12/15/2023 2:[address] [facility] Hematocrit 27.6(L) 40.5 - 48.5 % 12/15/2023 2:[address] [facility] Mean Cell Volume 75.0(L) 82.9 - 93.1 fL 12/15/2023 2:[address] [facility] Mean Cell Hemoglobin 21.7(L) 27.5 - 32.1 pg 12/15/2023 2:[address] [facility] Mean Cell Hemoglobin Concentration 29.0(L) 32.0 - 35.7 g/dL 12/15/2023 2:[address] [facility] Platelet 158 145 - 357 x10(3)/mc L 12/15/2023 2:[address] [facility] Mean Platelet Volume 10.4 7.6 - 12.9 fL 12/15/2023 2:[address] [facility] RDW Standard Deviation 57.8(H) 36.0 - 45.0 fL 12/15/2023 2:[address] [facility] RDW coefficient of variation 21.2(H) 11.4 - 13.8 % 12/15/2023 2:[address] [facility] NRBC% auto 0.0 % 12/15/2023 2:[address] [facility] NRBC Absolute <0.01 <0.01 x10(3)/mc L 12/15/2023 2:25 AM EDT [facility] Neutrophil % 70.2 % 12/15/2023 2:25 AM EDT [facility] Neutrophil Absolute (ANC) - Automated 5.45 1.70 - 6.10 x10(3)/mc L 12/15/2023 2:25 AM EDT [facility] Lymph % 15.1 % 12/15/2023 2:25 AM EDT [facility] Lymph Absolute 1.17 0.90 - 3.20 x10(3)/mc L 12/15/2023 2:25 AM EDT [facility] Monocyte % 11.0 % 12/15/2023 2:25 AM EDT [facility] Monocyte Absolute 0.85 0.30 - 0.90 x10(3)/mc L 12/15/2023 2:25 AM EDT [facility] Eos % 2.7 % 12/15/2023 2:25 AM EDT [facility] Eos Absolute 0.21 0.00 - 0.40 x10(3)/mc L 12/15/2023 2:25 AM EDT [facility] Basophil % 0.6 % 12/15/2023 2:25 AM EDT [facility] Baso Absolute 0.05 0.00 - 0.10 x10(3)/mc L 12/15/2023 2:25 AM EDT [facility] Immature Gran % 0.4 % 2:25 AM EDT [facility] Immature Gran Absolute <0.04 0.00 - 0.04 x10(3)/mc L 12/15/2023 2:25 AM EDT [facility] Blood VENOUS BLOOD SPECIMEN / Unknown IP Care Team Draw / Unknown 12/15/2023 2:16 AM EDT 12/15/2023 2:21 AM EDT Loi Encinas MD HEMATOLOGY ORDERAB LES [facility] [place] [address] * POC, GLUCOSE (12/14/2023 8:30 PM EDT) Glucometer, POC 171 65 - 199 mg/dL 12/14/2023 8:31 PM EDT [facility] Comment:Supplemental ranges: <140 mg/dL before meals <180 mg/dL all other times of the day. Blood CAPILLARY BLOOD / Unknown 12/14/2023 8:30 PM EDT 12/14/2023 8:31 PM EDT Loi Encinas MD POINT OF CARE TEST ORDERABLES [facility] [place] [address] * POC, GLUCOSE (12/14/2023 5:13 PM EDT) Glucometer, POC 134 65 - 199 mg/dL 12/14/2023 5:13 PM EDT [facility] Comment:Supplemental ranges: <140 mg/dL before meals <180 mg/dL all other times of the day. Blood CAPILLARY BLOOD / Unknown 12/14/2023 5:13 PM EDT 12/14/2023 5:14 PM EDT Loi Encinas MD POINT OF CARE TEST ORDERABLES [facility] [place] [address] * POC, GLUCOSE (12/14/2023 4:12 PM EDT) Glucometer, POC 170 65 - 199 mg/dL 12/14/2023 4:13 PM EDT [facility] Comment:Supplemental ranges: <140 mg/dL before meals <180 mg/dL all other times of the day. Blood CAPILLARY BLOOD / Unknown 12/14/2023 4:12 PM EDT 12/14/2023 4:13 PM EDT Loi Encinas MD POINT OF CARE TEST ORDERABLES Performing Organization Address City/[facility]/ZIP Co de Phone Number [facility] [place] [address] * POC, GLUCOSE (12/14/2023 1:26 PM EDT) Glucometer, POC 103 65 - 199 mg/dL 12/14/2023 1:26 PM EDT [facility] Comment:Supplemental ranges: <140 mg/dL before meals <180 mg/dL all other times of the day. Blood CAPILLARY BLOOD / Unknown 12/14/2023 1:26 PM EDT 12/14/2023 1:26 PM EDT Loi Encinas MD POINT OF CARE TEST ORDERABLES Performing Organization Address [facility] Co de Phone Number [facility] [place] [address] * POC, GLUCOSE (12/14/2023 8:34 AM EDT) Glucometer, POC 103 65 - 199 mg/dL 12/14/2023 8:34 AM EDT [facility] Comment:Supplemental ranges: <140 mg/dL before meals <180 mg/dL all other times of the day. Blood CAPILLARY BLOOD / Unknown 12/14/2023 8:34 AM EDT 12/14/2023 8:34 AM EDT Loi Encinas MD POINT OF CARE TEST ORDERABLES [facility] [place] [address] * POC, GLUCOSE (12/14/2023 4:46 AM EDT) Glucometer, POC 91 65 - 199 mg/dL 12/14/2023 4:47 AM EDT [facility] Comment:Supplemental ranges: <140 mg/dL before meals <180 mg/dL all other times of the day. Blood CAPILLARY BLOOD / Unknown 12/14/2023 4:46 AM EDT 12/14/2023 4:47 AM EDT Loi Encinas MD POINT OF CARE TEST ORDERABLES Performing Organization Address [facility]/ZIP Co de Phone Number [facility] [place] [address] * (ABNORMAL) Phosphorus (12/14/2023 4:46 AM EDT) Phosphorus 5.4(H) 2.5 - 4.5 mg/dL 12/14/2023 5:21 AM EDT [facility] Blood VENOUS BLOOD SPECIMEN / Unknown IP Care Team Draw / Unknown 12/14/2023 4:46 AM EDT 12/14/2023 4:50 AM EDT Loi Encinas MD CHEMISTRY ORDERABL ES Performing Organization Address [facility] Co de Phone Number [facility] [place] [address] * Magnesium (12/14/2023 4:46 AM EDT) Magnesium 0.95 0.69 - 1.07 mMol/L 12/14/2023 5:21 AM EDT [facility] Blood VENOUS BLOOD SPECIMEN / Unknown IP Care Team Draw / Unknown 12/14/2023 4:46 AM EDT 12/14/2023 4:50 AM EDT Loi Encinas MD CHEMISTRY ORDERABL ES Performing Organization Address City/[facility]/ZIP Co de Phone Number [facility] [place] [address] * (ABNORMAL) Basic Metabolic Panel (12/14/2023 4:46 AM EDT) Glucose 90 65 - 199 mg/dL 12/14/2023 5:21 AM EDT [facility] Comment:Glucose Concentratio n >=200 mg/dL plus symptoms is consistent with Diabetes Mellitus. Blood Urea Nitrogen 45(H) 10 - 20 mg/dL 12/14/2023 5:[address] [facility] Creatinine 2.91(H) 0.80 - 1.50 mg/dL 12/14/2023 5:[address] [facility] Sodium 141 135 - 145 mMol/L 12/14/2023 5:[address] [facility] Potassium 4.1 3.5 - 5.0 mMol/L 12/14/2023 5:[address] [facility] Chloride 105 98 - 107 mMol/L 12/14/2023 5:[address] [facility] Carbon Dioxide 28 22 - 31 mMol/L 12/14/2023 5:[address] [facility] Anion Gap 8 5 - 15 mMol/L 12/14/2023 5:[address] [facility] Calcium 8.5 8.5 - 10.5 mg/dL 12/14/2023 5:[address] [facility] Est Glomerular Filtration Rate - Male 26 mL/min/1. 73 m?? 12/14/2023 5:[address] [facility] Comment: This patient's estimated GFR [...] Unknown IP Care Team Draw / Unknown 12/14/2023 4:46 AM EDT 12/14/2023 4:50 AM EDT Loi Encinas MD CHEMISTRY ORDERABL ES [facility] [place] [address] * (ABNORMAL) CBC (with Diff) (12/14/2023 4:46 AM EDT) White Blood Cell 6.19 4.00 - 9.50 x10(3)/mc L 12/14/2023 4:55 AM EDT [facility] Red Blood Cell 3.72(L) 4.58 - 5.54 x10(6)/mc L 12/14/2023 4:55 AM EDT [facility] Hemoglobin 8.0(L) 13.7 - 16.5 g/dL 12/14/2023 4:55 AM EDT [facility] Hematocrit 28.2(L) 40.5 - 48.5 % 12/14/2023 4:55 AM EDT [facility] Mean Cell Volume 75.8(L) 82.9 - 93.1 fL 12/14/2023 4:55 AM EDT [facility] Mean Cell Hemoglobin 21.5(L) 27.5 - 32.1 pg 12/14/2023 4:55 AM T [facility] Mean Cell Hemoglobin Concentration 28.4(L) 32.0 - 35.7 g/dL 12/14/2023 4:[facility] Plate[facility] 172 145 - 357 x10(3)/mc L 12/14/2023 4:55 AM EDT [facility] Mean Platelet Volume 10.0 7.6 - 12.9 fL 12/14/2023 4:55 AM EDT [facility] RDW Standard Deviation 59.8(H) 36.0 - 45.0 fL 12/14/2023 4:[address] [facility] RDW coefficient of variation 22.0(H) 11.4 - 13.8 % 12/14/2023 4:55 [facility] NRBC% auto 0.0 % 12/14/2023 4:[address] [facility] NRBC Absolute <0.01 <0.01 x10(3)/mc L 12/14/2023 4:[address] [facility] Neutrophil % 64.8 % 12/14/2023 4:[address] [facility] Neutrophil Absolute (ANC) - Automated 4.01 1.70 - 6.10 x10(3)/mc L 12/14/2023 4:[address] [facility] Lymph % 18.1 % 12/14/2023 4:[address] [facility] Lymph Absolute 1.12 0.90 - 3.20 x10(3)/mc L 12/14/2023 4:[address] [facility] Monocyte % 13.2 % 12/14/2023 4:[address] [facility] Monocyte Absolute 0.82 0.30 - 0.90 x10(3)/mc L 12/14/2023 4:[address] [facility] Eos % 2.6 % 12/14/2023 4:[address] [facility] Eos Absolute 0.16 0.00 - 0.40 x10(3)/mc L 12/14/2023 4:[address] [facility] Basophil % 0.8 % 12/14/2023 4:[address] [facility] Baso Absolute 0.05 0.00 - 0.10 x10(3)/mc L 12/14/2023 4:[address] [facility] Immature Gran % 0.5 % 4:[address] [facility] Immature Gran Absolute <0.04 0.00 - 0.04 x10(3)/mc L 12/14/2023 4:[address] [facility] Blood VENOUS BLOOD SPECIMEN / Unknown IP Care Team Draw / Unknown 12/14/2023 4:46 AM EDT 12/14/2023 4:50 AM EDT Loi Encinas MD HEMATOLOGY ORDERAB LES Performing Organization Address City/[facility]/ZIP Co de Phone Number [facility] [place] [address] * POC, GLUCOSE (12/13/2023 9:24 PM EDT) Glucometer, POC 124 65 - 199 mg/dL 12/13/2023 9:24 PM EDT [facility] Comment:Supplemental ranges: <140 mg/dL before meals <180 mg/dL all other times of the day. Blood CAPILLARY BLOOD / Unknown 12/13/2023 9:24 PM EDT 12/13/2023 9:25 PM EDT Loi Encinas MD POINT OF CARE TEST ORDERABLES Performing Organization Address [facility] Co de Phone Number [facility] [place] [address] * CT Chest wo Contrast (Generic) (12/13/2023 5:12 PM EDT) WORKSTATION ID [id number] DH RAD Anatomical Region Laterality Modality Chest Computed [...] who have questions please contact the health customer care specialist that requested your imaging first. ? Electronically signed by: Minesh Oconnor MD, [facility] ([phone]), at 12/13/2023 5:52 PM Narrative 12/13/2023 5:52 PM EDT EXAMINATION: CT [...] patients who have questions please contactthe health customer care specialist that requested your imaging first. Federico Farley DO IMG CT ORDERABLES * POC, GLUCOSE (12/13/2023 4:31 PM EDT) Glucometer, POC 111 65 - 199 mg/dL 12/13/2023 4:31 PM EDT [facility] Comment:Supplemental ranges: <140 mg/dL before meals <180 mg/dL all other times of the day. Blood CAPILLARY BLOOD / Unknown 12/13/2023 4:31 PM EDT 12/13/2023 4:31 PM EDT Loi Encinas MD POINT OF CARE TEST ORDERABLES Performing Organization Address City/[facility]/ZIP Co de Phone Number [facility] [place] [address] * POC, GLUCOSE (12/13/2023 11:13 AM EDT) Glucometer, POC 112 65 - 199 mg/dL 12/13/2023 11:13 AM EDT [facility] Comment:Supplemental ranges: <140 mg/dL before meals <180 mg/dL all other times of the day. Blood CAPILLARY BLOOD / Unknown 12/13/2023 11:13 AM EDT 12/13/2023 11:14 AM EDT Loi Encinas MD POINT OF CARE TEST ORDERABLES [facility] [place] [address] * POC, GLUCOSE (12/13/2023 7:01 AM EDT) Glucometer, POC 111 65 - 199 mg/dL 12/13/2023 7:02 AM EDT [facility] Comment:Supplemental ranges: <140 mg/dL before meals <180 mg/dL all other times of the day. Blood CAPILLARY BLOOD / Unknown 12/13/2023 7:01 AM EDT 12/13/2023 7:02 AM EDT Loi Encinas MD POINT OF CARE TEST ORDERABLES [facility] [place] [address] * (ABNORMAL) Basic Metabolic Panel (12/13/2023 3:06 AM EDT) Glucose 132 65 - 199 mg/dL 12/13/2023 3:44 AM EDT [facility] Comment:Glucose Concentratio n >=200 mg/dL plus symptoms is consistent with Diabetes Mellitus. Blood Urea Nitrogen 45(H) 10 - 20 mg/dL 12/13/2023 3:44 AM EDT [facility] Creatinine 2.99(H) 0.80 - 1.50 mg/dL 12/13/2023 3:[address] [facility] Sodium 138 135 - 145 mMol/L 12/13/2023 3:[address] [facility] Potassium 4.3 3.5 - 5.0 mMol/L 12/13/2023 3:[address] [facility] Chloride 102 98 - 107 mMol/L 12/[facility]23 [facility] Carbon Dioxide 26 22 - 31 mMol/L 12/13/2023 3:[address] [facility] Anion Gap 10 5 - 15 mMol/L 12/13/2023 3:[address] [facility] Calcium 8.6 8.5 - 10.5 mg/dL 12/13/2023 3:[address] [facility] Est Glomerular Filtration Rate - Male 25 mL/min/1. 73 m?? 12/13/2023 3:44 AM EDT [facility] Comment: This patient's estimated GFR [...] Unknown IP Care Team Draw / Unknown 12/13/2023 3:06 AM EDT 12/13/2023 3:13 AM EDT Zeus Rdz MD CHEMISTRY ORDERABLES [facility] [place] [address] * (ABNORMAL) CBC (with Diff) (12/13/2023 3:06 AM EDT) White Blood Cell 7.17 4.00 - 9.50 x10(3)/mc L 12/13/2023 3:25 AM EDT [facility] Red Blood Cell 3.67(L) 4.58 - 5.54 x10(6)/mc L 12/13/2023 3:25 AM EDT [facility] Hemoglobin 7.9(L) 13.7 - 16.5 g/dL 12/13/2023 3:25 AM T [facility] Hematocrit 27.1(L) 40.5 - 48.5 % 12/13/2023 3:25 AM EDT [facility] LABORATORY Mean Cell Volume 73.8(L) 82.9 - 93.1 fL 12/13/2023 3:25 AM EDT [facility] Mean Cell Hemoglobin 21.5(L) 27.5 - 32.1 pg 12/13/2023 3:[address] [facility] Mean Cell Hemoglobin Concentration 29.2(L) 32.0 - 35.7 g/dL 12/13/2023 3:[address] [facility] Platelet 150 145 - 357 x10(3)/mc L 12/13/2023 3:[address] [facility] Mean Platelet Volume 10.2 7.6 - 12.9 fL 12/13/2023 3:[address] [facility] RDW Standard Deviation 58.8(H) 36.0 - 45.0 fL 12/13/2023 3:[address] [facility] RDW coefficient of variation 21.9(H) 11.4 - 13.8 % 12/13/2023 3:[address] [facility] NRBC% auto 0.0 % 12/13/2023 3:[address] [facility] NRBC Absolute <0.01 <0.01 x10(3)/mc L 12/13/2023 3:[address] [facility] Neutrophil % 72.1 % 12/13/2023 3:[address] [facility] Neutrophil Absolute (ANC) - Automated 5.17 1.70 - 6.10 x10(3)/mc L 12/13/2023 3:[address] [facility] Lymph % 11.6 % 12/13/2023 3:[address] [facility] Lymph Absolute 0.83(L) 0.90 - 3.20 x10(3)/mc L 12/13/2023 3:[address] [facility] Monocyte % 13.9 % 12/13/2023 3:[address] [facility] Monocyte Absolute 1.00(H) 0.30 - 0.90 x10(3)/mc L 12/13/2023 3:[address] [facility] Eos % 1.4 % 12/13/2023 3:[address] [facility] Eos Absolute 0.10 0.00 - 0.40 x10(3)/mc L 12/13/2023 3:25 AM EDT [facility] Basophil % 0.7 % 12/13/2023 3:25 AM EDT [facility] Baso Absolute 0.05 0.00 - 0.10 x10(3)/mc L 12/13/2023 3:25 AM EDT [facility] Immature Gran % 0.3 % 3:25 AM EDT [facility] Immature Gran Absolute <0.04 0.00 - 0.04 x10(3)/mc L 12/13/2023 3:25 AM EDT [facility] Blood VENOUS BLOOD SPECIMEN / Unknown IP Care Team Draw / Unknown 12/13/2023 3:06 AM EDT 12/13/2023 3:13 AM EDT Zeus Rdz MD HEMATOLOGY ORDERABLE S [facility] [place] [address] * POC, GLUCOSE (12/12/2023 8:51 PM EDT) [facility] Signature Glucometer, POC 137 65 - 199 mg/dL 12/12/2023 8:51 PM EDT [facility] Comment:Supplemental ranges: <140 mg/dL before meals <180 mg/dL all other times of the day. Blood CAPILLARY BLOOD / Unknown 12/12/2023 8:51 PM EDT 12/12/2023 8:52 PM EDT Loi Encinas MD POINT OF CARE TEST ORDERABLES [facility] [place] [address] * Phosphorus (12/12/2023 4:07 PM EDT) Phosphorus 4.4 2.5 - 4.5 mg/dL 12/12/2023 4:44 PM EDT [facility] Blood VENOUS BLOOD SPECIMEN / Unknown IP Care Team Draw / Unknown 12/12/2023 4:07 PM EDT 12/12/2023 4:16 PM EDT Loi Encinas MD CHEMISTRY ORDERABL ES Performing Organization Address City/[facility]/ZIP Co de Phone Number [facility] [place] [address] * Magnesium (12/12/2023 4:07 PM EDT) Magnesium 0.79 0.69 - 1.07 mMol/L 12/12/2023 4:44 PM EDT [facility] Blood VENOUS BLOOD SPECIMEN / Unknown IP Care Team Draw / Unknown 12/12/2023 4:07 PM EDT 12/12/2023 4:16 PM EDT Loi Encinas MD CHEMISTRY ORDERABL ES [facility] [place] [address] * Electrolytes panel (12/12/2023 4:07 PM EDT) Sodium 139 135 - 145 mMol/L 12/12/2023 5:05 PM EDT [facility] Potassium 4.0 3.5 - 5.0 mMol/L 12/12/2023 5:05 PM EDT [facility] Chloride 103 98 - 107 mMol/L 12/12/2023 5:05 PM EDT [facility] Carbon Dioxide 24 22 - 31 mMol/L 12/12/2023 5:05 PM EDT [facility] Anion Gap 12 5 - 15 mMol/L 12/12/2023 5:05 PM EDT [facility] Blood VENOUS BLOOD SPECIMEN / Unknown IP Care Team Draw / Unknown 12/12/2023 4:07 PM EDT 12/12/2023 4:16 PM EDT Loi Encinas MD CHEMISTRY ORDERABL ES Performing Organization Address City/[facility]/ZIP Co de Phone Number [facility] [place] [address] * POC, GLUCOSE (12/12/2023 3:51 PM EDT) Glucometer, POC 156 65 - 199 mg/dL 12/12/2023 3:53 PM EDT [facility] Comment:Supplemental ranges: <140 mg/dL before meals <180 mg/dL all other times of the day. Blood CAPILLARY BLOOD / Unknown 12/12/2023 3:51 PM EDT 12/12/2023 3:53 PM EDT Loi Encinas MD POINT OF CARE TEST ORDERABLES Performing Organization Address [facility] Co de Phone Number [facility] [place] [address] * POC, GLUCOSE (12/12/2023 11:11 AM EDT) Glucometer, POC 130 65 - 199 mg/dL 12/12/2023 11:13 AM EDT [facility] Comment:Supplemental ranges: <140 mg/dL before meals <180 mg/dL all other times of the day. Blood CAPILLARY BLOOD / Unknown 12/12/2023 11:11 AM EDT 12/12/2023 11:13 AM EDT Loi Encinas MD POINT OF CARE TEST ORDERABLES Performing Organization Address City/[facility]/ZIP Co de Phone Number [facility] [place] [address] * (ABNORMAL) Basic Metabolic Panel (12/12/2023 7:38 AM EDT) Glucose 135 65 - 199 mg/dL 12/12/2023 8:49 AM EDT [facility] Comment:Glucose Concentratio n >=200 mg/dL plus symptoms is consistent with Diabetes Mellitus. Blood Urea Nitrogen 60(H) 10 - 20 mg/dL 12/12/2023 8:[address] [facility] Creatinine 3.77(H) 0.80 - 1.50 mg/dL 12/12/2023 8:[address] [facility] Sodium 138 135 - 145 mMol/L 12/12/2023 8:[address] [facility] Potassium 5.2(H) 3.5 - 5.0 mMol/L 12/12/2023 8:[address] [facility] Chloride 103 98 - 107 mMol/L 12/12/2023 8:[address] [facility] Carbon Dioxide 25 22 - 31 mMol/L 12/12/2023 8:[address] [facility] Anion Gap 10 5 - 15 mMol/L 12/12/2023 8:[address] [facility] Calcium 8.8 8.5 - 10.5 mg/dL 12/12/2023 8:[address] [facility] Est Glomerular Filtration Rate - Male 19 mL/min/1. 73 m?? 12/12/2023 8:[address] [facility] Comment: This patient's estimated GFR [...] IP Care Team Draw / Unknown 12/12/2023 7:38 AM EDT 12/12/2023 7:50 AM EDT Loi Encinas MD CHEMISTRY ORDERABL ES [facility] [place] [address] * POC, GLUCOSE (12/12/2023 7:05 AM EDT) Glucometer, POC 131 65 - 199 mg/dL 12/12/2023 7:06 AM EDT [facility] Comment:Supplemental ranges: <140 mg/dL before meals <180 mg/dL all other times of the day. Blood CAPILLARY BLOOD / Unknown 12/12/2023 7:05 AM EDT 12/12/2023 7:06 AM EDT Loi Encinas MD POINT OF CARE TEST ORDERABLES Performing Organization Address City/[facility]/ZIP Co de Phone Number [facility] [place] [address] * POC, GLUCOSE (12/12/2023 6:50 AM EDT) Glucometer, POC 137 65 - 199 mg/dL 12/12/2023 6:51 AM EDT [facility] Comment:Supplemental ranges: <140 mg/dL before meals <180 mg/dL all other times of the day. Blood CAPILLARY BLOOD / Unknown 12/12/2023 6:50 AM EDT 12/12/2023 6:51 AM EDT Loi Encinas MD POINT OF CARE TEST ORDERABLES [facility] [place] [address] * POC, GLUCOSE (12/12/2023 5:48 AM EDT) Glucometer, POC 138 65 - 199 mg/dL 12/12/2023 5:49 AM EDT [facility] Comment:Supplemental ranges: <140 mg/dL before meals <180 mg/dL all other times of the day. Blood CAPILLARY BLOOD / Unknown 12/12/2023 5:48 AM EDT 12/12/2023 5:49 AM EDT Loi Encinas MD POINT OF CARE TEST ORDERABLES [facility] [place] [address] * (ABNORMAL) Basic Metabolic Panel (12/12/2023 4:08 AM EDT) Glucose 141 65 - 199 mg/dL 12/12/2023 4:45 AM EDT [facility] Comment:Glucose Concentratio n >=200 mg/dL plus symptoms is consistent with Diabetes Mellitus. Blood Urea Nitrogen 60(H) 10 - 20 mg/dL 12/12/2023 4:45 AM EDT [facility] Creatinine 3.78(H) 0.80 - 1.50 mg/dL 12/12/2023 4:[address] [facility] Sodium 137 135 - 145 mMol/L 12/12/2023 4:[address] [facility] Potassium 5.4(H) 3.5 - 5.0 mMol/L 12/12/2023 4:[address] [facility] Chloride 103 98 - 107 mMol/L 12/12/2023 4:[address] [facility] Carbon Dioxide 24 22 - 31 mMol/L 12/12/2023 4:[address] [facility] Anion Gap 10 5 - 15 mMol/L 12/12/2023 4:[address] [facility] Calcium 8.6 8.5 - 10.5 mg/dL [facility] Est Glomerular Filtration Rate - Male 19 mL/min/1. 73 m?? 12/12/2023 4:45 AM EDT [facility] Comment: This patient's estimated GFR [...] IP Care Team Draw / Unknown 12/12/2023 4:08 AM EDT 12/12/2023 4:14 AM EDT Loi Encinas MD CHEMISTRY ORDERABL ES [facility] [place] [address] * (ABNORMAL) CBC (with Diff) (12/12/2023 4:08 AM EDT) White Blood Cell 9.34 4.00 - 9.50 x10(3)/mc L 12/[facility]2023 [facility] Red Blood Cell 3.87(L) 4.58 - 5.54 x10(6)/mc L 12/12/2023 4:[address] [facility] Hemoglobin 8.3(L) 13.7 - 16.5 g/dL 12/12/2023 4:[address] [facility] Hematocrit 29.2(L) 40.5 - 48.5 % 12/12/2023 4:[address] [facility] Mean Cell Volume 75.5(L) 82.9 - 93.1 fL 12/12/2023 4:[address] [facility] Mean Cell Hemoglobin 21.4(L) 27.5 - 32.1 pg 12/12/2023 4:[address] [facility] Mean Cell Hemoglobin Concentration 28.4(L) 32.0 - 35.7 g/dL 12/12/2023 4:[address] [facility] Platelet 192 145 - 357 x10(3)/mc L 12/12/2023 [facility] Mean Platelet Volume 10.6 7.6 - 12.9 fL 12/12/2023 4:[address] [facility] RDW Standard Deviation 61.7(H) 36.0 - 45.0 fL 12/12/2023 4:[address] [facility] RDW coefficient of variation 22.7(H) 11.4 - 13.8 % 12/12/2023 4:[address] [facility] NRBC% auto 0.3 % 12/12/2023 4:[address] [facility] NRBC Absolute 0.03(H) <0.01 x10(3)/mc L 12/12/2023 4:[address] [facility] Neutrophil % 87.6 % 12/12/2023 4:[address] [facility] Neutrophil Absolute (ANC) - Automated 8.18(H) 1.70 - 6.10 x10(3)/mc L 12/12/2023 4:[address] [facility] Lymph % 4.7 % 12/12/2023 4:[address] [facility] Lymph Absolute 0.44(L) 0.90 - 3.20 x10(3)/mc L 12/12/2023 4:[address] [facility] Monocyte % 5.8 % 12/12/2023 4:[address] [facility] Monocyte Absolute 0.54 0.30 - 0.90 x10(3)/mc L 12/12/2023 4:[address] [facility] Eos % 0.7 % 12/12/2023 4:[address] [facility] Eos Absolute 0.07 0.00 - 0.40 x10(3)/mc L 12/12/2023 4:[address] [facility] Basophil % 0.3 % 12/12/2023 4:[address] [facility] Baso Absolute <0.04 0.00 - 0.10 x10(3)/mc L 12/12/2023 4:29 AM EDT [facility] Immature Gran % 0.9 % 4:29 AM EDT [facility] Immature Gran Absolute 0.08(H) 0.00 - 0.04 x10(3)/mc L 12/12/2023 4:29 AM EDT [facility] Blood VENOUS BLOOD SPECIMEN / Unknown IP Care Team Draw / Unknown 12/12/2023 4:08 AM EDT 12/12/2023 4:14 AM EDT Zeus Rdz MD HEMATOLOGY ORDERABLE S [facility] [place] [address] * (ABNORMAL) Basic Metabolic Panel (12/12/2023 12:04 AM EDT) Glucose 157 65 - 199 mg/dL 12/12/2023 12:[address] [facility] Comment:Glucose Concentratio n >=200 mg/dL plus symptoms is consistent with Diabetes Mellitus. Blood Urea Nitrogen 62(H) 10 - 20 mg/dL 12/12/2023 12:[address] [facility] Creatinine 3.78(H) 0.80 - 1.50 mg/dL 12/12/2023 12:[address] [facility] Sodium 136 135 - 145 mMol/L 12/12/2023 12:[address] [facility] Potassium 5.4(H) 3.5 - 5.0 mMol/L 12/12/2023 12:[address] [facility] Chloride 102 98 - 107 mMol/L 12/12/2023 12:[address] [facility] Carbon Dioxide 24 22 - 31 mMol/L 12/12/2023 12:[address] [facility] Anion Gap 10 5 - 15 mMol/L 12/12/2023 12:[address] [facility] Calcium 8.7 8.5 - 10.5 mg/dL 12/12/2023 12:47 AM EDT [facility] Est Glomerular Filtration Rate - Male 19 mL/min/1. 73 m?? 12/12/2023 12:47 AM EDT [facility] Comment: This patient's estimated GFR [...] IP Care Team Draw / Unknown 12/12/2023 12:04 AM EDT 12/12/2023 12:17 AM EDT Loi Encinas MD CHEMISTRY ORDERABL ES [facility] [place] [address] * (ABNORMAL) Basic Metabolic Panel (12/11/2023 8:20 PM EDT) Glucose 153 65 - 199 mg/dL 12/11/2023 9:44 PM EDT [facility] Comment:Glucose Concentratio n >=200 mg/dL plus symptoms is consistent with Diabetes Mellitus. Blood Urea Nitrogen 60(H) 10 - 20 mg/dL 12/11/2023 9:44 PM EDT [facility] Creatinine 3.63(H) 0.80 - 1.50 mg/dL 12/11/2023 9:44 PM EDT [facility] Sodium 135 135 - 145 mMol/L 12/11/2023 9:44 PM EDT [facility] Potassium 5.4(H) 3.5 - 5.0 mMol/L 12/11/2023 9:44 PM EDT [facility] Chloride 102 98 - 107 mMol/L 12/11/2023 9:44 PM EDT [facility] Carbon Dioxide 21(L) 22 - 31 mMol/L 12/11/2023 9:44 PM EDT [facility] Anion Gap 12 5 - 15 mMol/L 12/11/2023 9:44 PM EDT [facility] Calcium 8.7 8.5 - 10.5 mg/dL 12/11/2023 9:44 PM EDT [facility] Est Glomerular Filtration Rate - Male 20 mL/min/1. 73 m?? 12/11/2023 9:44 PM EDT [facility] Comment: This patient's estimated GFR [...] IP Care Team Draw / Unknown 12/11/2023 8:20 PM EDT 12/11/2023 8:33 PM EDT Loi Encinas MD CHEMISTRY ORDERABL ES [facility] [place] [address] * POC, GLUCOSE (12/11/2023 7:48 PM EDT) Glucometer, POC 164 65 - 199 mg/dL 12/11/2023 7:48 PM EDT [facility] Comment:Supplemental ranges: <140 mg/dL before meals <180 mg/dL all other times of the day. Blood CAPILLARY BLOOD / Unknown 12/11/2023 7:48 PM EDT 12/11/2023 7:48 PM EDT Loi Encinas MD POINT OF CARE TEST ORDERABLES [facility] [place] [address] * POC, GLUCOSE (12/11/2023 4:54 PM EDT) Glucometer, POC 164 65 - 199 mg/dL 12/11/2023 4:55 PM EDT [facility] Comment:Supplemental ranges: <140 mg/dL before meals <180 mg/dL all other times of the day. Blood CAPILLARY BLOOD / Unknown 12/11/2023 4:54 PM EDT 12/11/2023 4:55 PM EDT Loi Encinas MD POINT OF CARE TEST ORDERABLES Performing Organization Address [facility]/ZIP Co de Phone Number [facility] [place] [address] * Immunoglobulins, Quantitative (12/11/2023 4:24 PM EDT) IgG 1,119 700 - 1,600 mg/dL 12/12/2023 3:54 PM EDT [facility] IgA 343 70 - 400 mg/dL 12/12/2023 3:54 PM EDT [facility] IgM 77 40 - 230 mg/dL 12/12/2023 3:54 PM EDT [facility] Blood VENOUS BLOOD SPECIMEN / Unknown IP Care Team Draw / Unknown 12/11/2023 4:24 PM EDT 12/11/2023 4:39 PM EDT Loi Encinas MD CHEMISTRY ORDERABL ES Performing Organization Address City/[facility]/ZIP Co de Phone Number [facility] [place] [address] * Immunofixation Electrophoresis, Serum (12/11/2023 4:24 PM EDT) Immunofixation Interpretation, Serum Faint IgG kappa and a faint IgA kappa restrictions seen. Clinical significance of this finding is not clear. Suggest repeat study in 6-12 months. 12/15/2023 9:32 AM EDT [facility] Signing Pathologist Jozef Jha, 12/15/2023 9:32 AM EDT [facility] Blood VENOUS BLOOD SPECIMEN / Unknown IP Care Team Draw / Unknown 12/11/2023 4:24 PM EDT 12/11/2023 4:39 PM EDT Loi Encinas MD CHEMISTRY ORDERABL ES Performing Organization Address City/[facility]/ZIP Co de Phone Number [facility] [place] [address] * Hepatitis B Surface Antigen (12/11/2023 4:24 PM EDT) Hepatitis B Surface Antigen Negative Negative 12/11/2023 5:48 PM EDT [facility] Blood VENOUS BLOOD SPECIMEN / Unknown IP Care Team Draw / Unknown 12/11/2023 4:24 PM EDT 12/11/2023 4:39 PM EDT Loi Encinas MD CHEMISTRY ORDERABL ES Performing Organization Address City/[facility]/ZIP Co de Phone Number [facility] [place] [address] * Protein, Serum Electrophoresis (12/11/2023 4:24 PM EDT) Blood VENOUS BLOOD SPECIMEN / Unknown IP Care Team Draw / Unknown 12/11/2023 4:24 PM EDT 12/11/2023 4:39 PM EDT Loi Encinas MD URINE ORDERABLES Performing Organization Address City/[facility]/ZIP Co de Phone Number [facility] [place] [address] * PEP, Serum (12/11/2023 4:24 PM EDT) Protein, Total 6.6 6.1 - 8.0 g/dL 12/12/2023 2:47 PM EDT [facility] Albumin Electrophoresis 3.74 3.20 - 5.20 g/dL 12/12/2023 2:47 PM EDT [facility] Alpha 1 Globulin 0.20 0.10 - 0.30 g/dL 12/12/2023 2:47 PM EDT [facility] Alpha 2 Globulin 0.90 0.40 - 0.90 g/dL 12/12/2023 2:47 PM EDT [facility] Beta Globulin 0.83 0.50 - 1.00 g/dL 12/12/2023 2:47 PM EDT [facility] Gamma Globulin 0.94 0.50 - 1.30 g/dL 12/12/2023 2:47 PM EDT [facility] M1 Band 12/12/2023 2:47 PM EDT [facility] Comment:Serum protein electr ophoresis shows a band that is a possible paraprotein. Immunofixation and quantitative immunoglobulin testing will be performed on this sample to verify that it is a monoclonal immunoglobulin. Blood VENOUS BLOOD SPECIMEN / Unknown IP Care Team Draw / Unknown 12/11/2023 4:24 PM EDT 12/11/2023 4:39 PM EDT Loi Encinas MD URINE ORDERABLES [facility] [place] [address] * C4 Complement (12/11/2023 4:24 PM EDT) Complement C4 22 10 - 40 mg/dL 12/11/2023 5:22 PM EDT [facility] Blood VENOUS BLOOD SPECIMEN / Unknown IP Care Team Draw / Unknown 12/11/2023 4:24 PM EDT 12/11/2023 4:39 PM EDT Loi Encinas MD CHEMISTRY ORDERABL ES [facility] [place] [address] * C3 Complement (12/11/2023 4:24 PM EDT) Complement C3 129 90 - 180 mg/dL 12/11/2023 5:22 PM EDT [facility] Blood VENOUS BLOOD SPECIMEN / Unknown IP Care Team Draw / Unknown 12/11/2023 4:24 PM EDT 12/11/2023 4:39 PM EDT Loi Encinas MD CHEMISTRY ORDERABL ES Performing Organization Address [facility] Co de Phone Number [facility] [place] [address] * (ABNORMAL) Free Light Chains, Serum (12/11/2023 4:24 PM EDT) [place] Free Light Chain 10.88(H) 0.72 - 2.75 mg/dL 12/12/2023 9:21 AM EDT [facility] Lambda Free Light Chain 5.91(H) 0.57 - 2.15 mg/dL 12/12/2023 9:21 AM EDT [facility] [place]/Lambda FLC Ratio 1.8409 0.4000 - 2.5800 12/12/2023 9:21 AM EDT [facility] Blood VENOUS BLOOD SPECIMEN / Unknown IP Care Team Draw / Unknown 12/11/2023 4:24 PM EDT 12/11/2023 4:39 PM EDT Loi Encinas MD CHEMISTRY ORDERABL ES Performing Organization Address City/[facility]/ZIP Co de Phone Number [facility] [place] [address] * (ABNORMAL) Basic Metabolic Panel (12/11/2023 4:24 PM EDT) Glucose 195 65 - 199 mg/dL 12/11/2023 5:[address] [facility] Comment:Glucose Concentratio n >=200 mg/dL plus symptoms is consistent with Diabetes Mellitus. Blood Urea Nitrogen 78(H) 10 - 20 mg/dL 12/11/2023 5:[address] [facility] Creatinine 4.58(H) 0.80 - 1.50 mg/dL 12/11/2023 5:[address] [facility] Sodium 138 135 - 145 mMol/L 12/11/2023 5:[address] [facility] Potassium 6.8(HHH) 3.5 - 5.0 mMol/L 12/11/2023 5:[address] [facility] Chloride 105 98 - 107 mMol/L 12/11/2023 5:[address] [facility] Carbon Dioxide 22 22 - 31 mMol/L 12/11/2023 5:[address] [facility] Anion Gap 11 5 - 15 mMol/L 12/11/2023 5:[address] [facility] Calcium 8.7 8.5 - 10.5 mg/dL 12/11/2023 5:[address] [facility] Est Glomerular Filtration Rate - Male 15 mL/min/1. 73 m?? 12/11/2023 5:[address] [facility] Comment: This patient's estimated GFR [...] PM EDT 12/11/2023 4:39 PM EDT Loi Encinas MD CHEMISTRY ORDERABL ES [facility] [place] [address] * IR Dialysis Access - Tunneled Line (12/11/2023 3:55 PM EDT) Anatomical Region Laterality Modality Abdomen X-Ray Angiograph y Narrative 12/11/2023 5:19 PM EDT Interventional Radiology Procedure Note Procedure: Tunneled Hemodialysis Catheter Placement ?? Clinical Indication: 47 year old male with hx of STMEI s/p PCI in 2018, s/p CABG on 11/13 with DONAL on CKD with need for durable intermediate central venous access for dialysis Informed Consent: [...] Farley, was present throughout the procedure. Loi Encinas MD IMG IR ORDERABLES * (ABNORMAL) POC, GLUCOSE (12/11/2023 1:50 PM EDT) Glucometer, POC 238(H) 65 - 199 mg/dL 12/11/2023 1:51 PM EDT [facility] Comment:Supplemental ranges: <140 mg/dL before meals <180 mg/dL all other times of the day. Blood CAPILLARY BLOOD / Unknown 12/11/2023 1:50 PM EDT 12/11/2023 1:51 PM EDT Loi Encinas MD POINT OF CARE TEST ORDERABLES [facility] [place] [address] * (ABNORMAL) POC, GLUCOSE (12/11/2023 12:09 PM EDT) Glucometer, POC 206(H) 65 - 199 mg/dL 12/11/2023 12:10 PM EDT [facility] Comment:Supplemental ranges: <140 mg/dL before meals <180 mg/dL all other times of the day. Blood CAPILLARY BLOOD / Unknown 12/11/2023 12:09 PM EDT 12/11/2023 12:10 PM EDT Loi Encinas MD POINT OF CARE TEST ORDERABLES [facility] [place] [address] * (ABNORMAL) Basic Metabolic Panel (12/11/2023 11:49 AM EDT) Glucose 197 65 - 199 mg/dL 12/11/2023 12:49 PM EDT [facility] Comment:Glucose Concentratio n >=200 mg/dL plus symptoms is consistent with Diabetes Mellitus. Blood Urea Nitrogen 81(H) 10 - 20 mg/dL 12/11/2023 12:49 PM EDT [facility] Creatinine 4.37(H) 0.80 - 1.50 mg/dL 12/11/2023 12:49 PM EDT [facility] Sodium 134(L) 135 - 145 mMol/L 12/11/2023 12:49 PM EDT [facility] Potassium 7.2(HHH) 3.5 - 5.0 mMol/L 12/11/2023 12:49 PM EDT [facility] Chloride 103 98 - 107 mMol/L 12/11/2023 12:49 PM EDT [facility] Carbon Dioxide 20(L) 22 - 31 mMol/L 12/11/2023 12:49 PM EDT [facility] Anion Gap 11 5 - 15 mMol/L 12/11/2023 12:49 PM EDT [facility] Calcium 8.9 8.5 - 10.5 mg/dL 12/11/2023 12:49 PM EDT [facility] Est Glomerular Filtration Rate - Male 16 mL/min/1. 73 m?? 12/11/2023 12:49 PM EDT [facility] Comment: This patient's estimated GFR [...] IP Care Team Draw / Unknown 12/11/2023 11:49 AM EDT 12/11/2023 11:59 AM EDT Loi Encinas MD CHEMISTRY ORDERABL ES [facility] [place] [address] * (ABNORMAL) Blood Gas, Venous (12/11/2023 9:54 AM EDT) pH, Venous 7.12(LLL) 7.32 - 7.42 12/11/2023 10:12 AM EDT [facility] Comment:Called to and read b ack by krysta moise 12/11/23 at 1012 nb PCO2, Venous 62(HHH) 38 - 58 mmHg 12/11/2023 10:12 AM EDT [facility] Comment:Called to and read b ack by krysta moise 12/11/23 at 1012 nb PO2, Venous 44 16 - 65 mmHg 12/11/2023 10:12 AM EDT [facility] Bicarbonate, Venous 19.7(L) 22 - 31 mmol/L 12/11/2023 10:12 AM EDT [facility] Base Excess, Venous -9.7(L) 1.9 - 4.5 mmol/L 12/11/2023 10:12 AM EDT [facility] Hemoglobin, Venous 9.3(L) 13.7 - 16.5 g/dL 12/11/2023 10:[address] [facility] Oxyhemoglobin, Venous 73.3 % 12/11/2023 10:[address] [facility] Carboxyhemoglobin , Venous 0.2 % 12/11/2023 10:[address] [facility] Comment: Nonsmokers: 0.5-1.5% COHB ?? Smokers: Variable ??but usually less than 10% ?? Toxic: 20-30% COHB ?? Lethal: Greater than 60% COHB Methemoglobin, Venous 0.2 <=1.5 % 12/11/2023 10:[address] [facility] Sodium, Venous 134(L) 135 - 145 mmol/L 12/11/2023 10:[address] [facility] Chloride, Venous 104 98 - 107 mmol/L 12/11/2023 10:[address] [facility] Potassium, Venous 6.8(HHH) 3.5 - 5.0 mmol/L 12/11/2023 10:[address] [facility] Comment:Called to and read b ack by krysta moise 12/11/23 at 1012 nb Ionized Calcium, Venous 1.21 1.15 - 1.33 mmol/L 12/11/2023 10:[address] [facility] Glucose, Venous 240(H) 65 - 199 mg/dL 12/11/2023 10:[address] [facility] Comment:Glucose Concentratio n >=200 mg/dL plus symptoms is consistent with Diabetes Mellitus. Lactate, Venous 1.2 0.5 - 2.2 mmol/L 12/11/2023 10:[address] [facility] Blood Gas Source Venous 12/11/19 10:[address] [facility] Blood VENOUS BLOOD SPECIMEN / Unknown IP Care Team Draw / Unknown 12/11/2023 9:54 AM EDT 12/11/2023 10:03 AM EDT Loi Encinas MD CHEMISTRY ORDERABL ES [facility] [place] [address] * (ABNORMAL) POC, GLUCOSE (12/11/2023 9:53 AM EDT) [facility] Signature Glucometer, POC 247(H) 65 - 199 mg/dL 12/11/2023 9:57 AM EDT [facility] Comment:Supplemental ranges: <140 mg/dL before meals <180 mg/dL all other times of the day. Blood CAPILLARY BLOOD / Unknown 12/11/2023 9:53 AM EDT 12/11/2023 9:58 AM EDT Loi Encinas MD POINT OF CARE TEST ORDERABLES Performing Organization Address City/[facility]/ZIP Co de Phone Number [facility] [place] [address] * ECHO COMPLETE W CONTRAST (12/11/2023 9:04 AM EDT) Anatomical Region Laterality Modality Cardiac Other 12/11/2023 7:05 AM EDT Narrative 12/11/2023 10:16 AM EDT [address] [place] [address] ? Echocardiogram Report Name: HAYDEN RUSSO ?Study Date: 12/11/2023 07:05 AM : 1975 ? Height: 178 cm ? Account: [id number] Age: 48 yrs ? Weight: 132 kg Gender: Male ?BSA: 2.5 m2 Ordering Physician: ZEUS RDZ Referring Physician: CARLOS FREEMAN Performed By: Narda Lynch RDCS Reason For Study: CHF Exam Location: [facility]. Interpretation Summary Technically limited exam due [...] not well visualized on today's exam. Procedure Complete-[id number]. Image enhancement Definity was used for left [...] Ao V2 VTI: 30.8 cm Ao Max Beba: 157.6 cm/sec Ao valve max: 9.9 mmHg Ao valve mean: 4.8 mmHg MV E max beba: 148.3 cm/sec MV A max beba: 63.2 cm/sec MV E/A: 2.3 MV dec time: 0.16 sec Lat Peak E' Beba: 10.8 cm/sec E/e' (lat): 13.8 Med Peak E' Beba: 5.7 cm/sec E/e' (med): 26.2 E/e' Average: 20.0 LYNETTE(I,D): 2.0 cm2 Dimensionless index Aov: 0.64 TR max beba: 242.2 cm/sec I ?WMSI = 1.20 ? % Normal = 80 ?Segments ??Size X - Cannot ?2 - ?4 - ?1-2 ? small Interpret ?1 - Normal ?? Hypokinetic 3 - Akinetic Dyskinetic ?? 3-5 ? moderate 5 - ? 6-14 ?large Aneurysmal ?15-16 ?? diffuse Procedure Note Jonathan Baig MD - 12/11/2023 [address] [id number] Echocardiogram Report Name: HAYDEN RUSSO Study Date: 407:05 AM : 1975 Height: 178 cm Account: [id number] Age: 48 yrs Weight: 132 kg Gender: Male BSA: 2.5 m2 Ordering Physician: ZEUS RDZ Referring Physician: CARLOS FREEMAN Performed By: Narda Lynch RDCS Reason For Study: CHF Exam Location: [facility]. Interpretation Summary Technically limited exam due [...] is notwell visualized on today's exam. Procedure Complete-[id number]. Image enhancement Definity was used for left [...] Ao V2 VTI: 30.8 cm Ao Max Beba: 157.6 cm/sec Ao valve max: 9.9 mmHg Ao valve mean: 4.8 mmHg MV E max beba: 148.3 cm/sec MV A max beba: 63.2 cm/sec MV E/A: 2.3 MV dec time: 0.16 sec Lat Peak E' Beba: 10.8 cm/sec E/e' (lat): 13.8 Med Peak E' Beba: 5.7 cm/sec E/e' (med): 26.2 E/e' Average: 20.0 LYNETTE(I,D): 2.0 cm2 Dimensionless index Aov: 0.64 TR max beba: 242.2 cm/sec I WMSI = 1.20 % Normal = 80 SegmentsSize X - Cannot 2 - 4 - 1-2small Interpret 1 - Normal Hypokinetic 3 - Akinetic Dyskinetic 3-5moderate 5 - 6-14large Aneurysmal 15-16diffuse Zeus Rdz MD ECHO ORDERABLES * (ABNORMAL) Basic Metabolic Panel (12/11/2023 8:12 AM EDT) Glucose 235(H) 65 - 199 mg/dL 12/11/2023 9:[address] [facility] Comment:Glucose Concentratio n >=200 mg/dL plus symptoms is consistent with Diabetes Mellitus. Blood Urea Nitrogen 80(H) 10 - 20 mg/dL 12/11/2023 9:[address] [facility] Creatinine 4.38(H) 0.80 - 1.50 mg/dL 12/11/2023 9:[address] [facility] Sodium 135 135 - 145 mMol/L 12/11/2023 9:[address] [facility] Potassium 7.2(HHH) 3.5 - 5.0 mMol/L 12/11/2023 9:[address] [facility] Chloride 105 98 - 107 mMol/L 12/11/2023 9:[address] [facility] Carbon Dioxide 20(L) 22 - 31 mMol/L 12/11/2023 9:[address] [facility] Anion Gap 10 5 - 15 mMol/L 12/11/2023 9:[address] [facility] Calcium 9.0 8.5 - 10.5 mg/dL 12/11/2023 9:20 AM EDT [facility] Est Glomerular Filtration Rate - Male 16 mL/min/1. 73 m?? 12/11/2023 9:20 AM EDT [facility] Comment: This patient's estimated GFR [...] IP Care Team Draw / Unknown 12/11/2023 8:12 AM EDT 12/11/2023 8:18 AM EDT Loi Encinas MD CHEMISTRY ORDERABL ES [facility] [place] [address] * (ABNORMAL) POC, GLUCOSE (12/11/2023 8:08 AM EDT) [facility] Signature Glucometer, POC 264(H) 65 - 199 mg/dL 12/11/2023 8:09 AM EDT [facility] Comment:Supplemental ranges: <140 mg/dL before meals <180 mg/dL all other times of the day. Blood CAPILLARY BLOOD / Unknown 12/11/2023 8:08 AM EDT 12/11/2023 8:09 AM EDT Loi Encinas MD POINT OF CARE TEST ORDERABLES [facility] [place] [address] * EKG 12 Lead (12/11/2023 8:02 AM EDT) Ventricular rate 60 BPM MUSE SYSTEM Atrial Rate 60 BPM MUSE SYSTEM P-R Interval 208 ms MUSE SYSTEM QRS Duration 132 ms MUSE SYSTEM Q-T Interval 428 ms MUSE SYSTEM QTC Calculated (Bezet) 428 ms MUSE SYSTEM Calculated P [place] 58 degrees MUSE SYSTEM Calculated R [place] 98 degrees MUSE SYSTEM Calculated T [place] -4 degrees MUSE SYSTEM INTERPRETATION Normal sinus rhythm with 1st degree A-V block Rightward axis Non-specific intra-ventricular conduction block Inferior infarct (cited on or before 12-OCT-2018) Cannot rule out Anterior infarct , age undetermined Abnormal ECG When compared with ECG of 11-DEC-2023 04:54, MO interval has decreased I personally reviewed the tracing and edited the fellows interpretation Confirmed by fellow MD Adrien, Katharina ([id number]) on 12/11/2023 4:09:28 PM Confirmed by MD Jose Cruz, Jr ([id number]) on 12/12/2023 2:26:43 PM MUSE SYSTEM 12/11/2023 8:02 AM EDT 12/12/2023 2:26 PM EDT Loi Encinas MD ECG ORDERABLES MUSE SYSTEM * (ABNORMAL) Blood Gas, Venous (12/11/2023 6:20 AM EDT) pH, Venous 7.11(LLL) 7.32 - 7.42 12/11/2023 6:33 AM EDT [facility] PCO2, Venous 69(HHH) 38 - 58 mmHg 12/11/2023 6:33 AM EDT [facility] PO2, Venous 42 16 - 65 mmHg 12/11/2023 6:33 AM EDT [facility] Bicarbonate, Venous 21.2(L) 22 - 31 mmol/L 12/11/2023 6:33 AM EDT [facility] Base Excess, Venous -8.3(L) 1.9 - 4.5 mmol/L 12/11/2023 6:33 AM EDT [facility] Hemoglobin, Venous 9.5(L) 13.7 - 16.5 g/dL 12/11/2023 6:33 AM EDT [facility] Oxyhemoglobin, Venous 71.7 % 12/11/2023 6:33 AM EDT [facility] Carboxyhemoglobin , Venous 0.5 % 12/11/2023 6:33 AM EDT [facility] Comment: Nonsmokers: 0.5-1.5% COHB ?? Smokers: Variable ??but usually less than 10% ?? Toxic: 20-30% COHB ?? Lethal: Greater than 60% COHB Methemoglobin, Venous 0.5 <=1.5 % 12/11/2023 6:33 AM EDT [facility] Sodium, Venous 135 135 - 145 mmol/L 12/11/2023 6:33 AM EDT [facility] Chloride, Venous 105 98 - 107 mmol/L 12/11/2023 6:33 AM EDT [facility] Potassium, Venous 7.0(HHH) 3.5 - 5.0 mmol/L 12/11/2023 6:33 AM EDT [facility] Ionized Calcium, Venous 1.20 1.15 - 1.33 mmol/L 12/11/2023 6:33 AM EDT [facility] Glucose, Venous 245(H) 65 - 199 mg/dL 12/11/2023 6:33 AM EDT [facility] Comment:Glucose Concentratio n >=200 mg/dL plus symptoms is consistent with Diabetes Mellitus. Lactate, Venous 1.2 0.5 - 2.2 mmol/L 12/11/2023 6:33 AM EDT [facility] Blood Gas Source Venous 12/11/19 6:[address] [facility] Blood VENOUS BLOOD SPECIMEN / Unknown IP Care Team Draw / Unknown 12/11/2023 6:20 AM EDT 12/11/2023 6:27 AM EDT Loi Encinas MD CHEMISTRY ORDERABL ES [facility] [place] [address] * POC, GLUCOSE (12/11/2023 6:16 AM EDT) Glucometer, POC 122 65 - 199 mg/dL 12/11/2023 6:22 AM EDT [facility] Comment:Supplemental ranges: <140 mg/dL before meals <180 mg/dL all other times of the day. Blood CAPILLARY BLOOD / Unknown 12/11/2023 6:16 AM EDT 12/11/2023 6:22 AM EDT Loi Encinas MD POINT OF CARE TEST ORDERABLES Performing Organization Address [facility]/ZIP Co de Phone Number [facility] [place] [address] * EKG 12 Lead (12/11/2023 4:54 AM EDT) Ventricular rate 56 BPM MUSE SYSTEM Atrial Rate 56 BPM MUSE SYSTEM P-R Interval 258 ms MUSE SYSTEM QRS Duration 138 ms MUSE SYSTEM Q-T Interval 436 ms MUSE SYSTEM QTC Calculated (Bezet) 420 ms MUSE SYSTEM Calculated P [place] 54 degrees MUSE SYSTEM Calculated R [place] 115 degrees MUSE SYSTEM Calculated T [place] -11 degrees MUSE SYSTEM INTERPRETATION Sinus bradycardia with 1st degree A-V block Non-specific intra-ventricular conduction block Inferior infarct (cited on or before 12-OCT-2018) Abnormal ECG When compared with ECG of 10-DEC-2023 12:46, (unconfirmed) No significant change was found I personally reviewed the tracing and edited the fellows interpretation Confirmed by fellow Shannan Patel ([id number]) on 12/12/2023 2:41:50 PM Confirmed by MD Jose Cruz, Jr ([id number]) on 12/12/2023 2:50:26 PM MUSE SYSTEM 12/11/2023 4:54 AM EDT 12/12/2023 2:50 PM EDT Loi Encinas MD ECG ORDERABLES Performing Organization Address City/[facility]/ZIP Co de Phone Number M[facility] SYSTEM * (ABNORMAL) Basic Metabolic Panel (12/11/2023 4:13 AM EDT) Glucose 185 65 - 199 mg/dL 12/11/2023 4:[address] [facility] Comment:Glucose Concentratio n >=200 mg/dL plus symptoms is consistent with Diabetes Mellitus. Blood Urea Nitrogen 76(H) 10 - 20 mg/dL 12/11/2023 4:[address] [facility] Creatinine 4.38(H) 0.80 - 1.50 mg/dL 12/11/2023 4:[address] [facility] Sodium 135 135 - 145 mMol/L 12/11/2023 4:[address] [facility] Potassium 7.4(HHH) 3.5 - 5.0 mMol/L 12/11/2023 4:[address] [facility] Chloride 106 98 - 107 mMol/L 12/11/2023 4:[address] [facility] Carbon Dioxide 19(L) 22 - 31 mMol/L 12/11/2023 4:[address] [facility] Anion Gap 10 5 - 15 mMol/L 12/11/2023 4:[address] [facility] Calcium 8.9 8.5 - 10.5 mg/dL 12/11/2023 4:[address] [facility] Est Glomerular Filtration Rate - Male 16 mL/min/1. 73 m?? 12/11/2023 4:[address] [facility] Comment: This patient's estimated GFR [...] IP Care Team Draw / Unknown 12/11/2023 4:13 AM EDT 12/11/2023 4:19 AM EDT Loi Encinas MD CHEMISTRY ORDERABL ES [facility] [place] [address] * (ABNORMAL) CBC (with Diff) (12/11/2023 4:13 AM EDT) White Blood Cell 8.68 4.00 - 9.50 x10(3)/mc L 12/11/2023 4:27 AM EDT [facility] Red Blood Cell 3.98(L) 4.58 - 5.54 x10(6)/mc L 12/11/2023 4:27 AM EDT [facility] Hemoglobin 8.6(L) 13.7 - 16.5 g/dL 12/11/2023 4:27 AM EDT [facility] Hematocrit 30.7(L) 40.5 - 48.5 % 12/11/2023 4:27 AM EDT [facility] Mean Cell Volume 77.1(L) 82.9 - 93.1 fL 12/11/2023 4:27 AM EDT [facility] Mean Cell Hemoglobin 21.6(L) 27.5 - 32.1 pg 12/11/2023 4:27 AM EDT [facility] Mean Cell Hemoglobin Concentration 28.0(L) 32.0 - 35.7 g/dL 12/11/2023 4:27 AM EDT [facility] Platelet 225 145 - 357 x10(3)/mc L [facility]23 [facility] Mean Platelet Volume 10.7 7.6 - 12.9 fL 12/11/2023 4:[address] [facility] RDW Standard Deviation 64.5(H) 36.0 - 45.0 fL 12/11/2023 4:27 AM EDT [facility] RDW coefficient of variation 23.3(H) 11.4 - 13.8 % 12/11/2023 4:[address] [facility] NRBC% auto 0.3 % 12/11/2023 4:[address] [facility] NRBC Absolute 0.03(H) <0.01 x10(3)/mc L 12/11/2023 4:[address] [facility] Neutrophil % 80.1 % 12/11/2023 4:[address] [facility] Neutrophil Absolute (ANC) - Automated 6.95(H) 1.70 - 6.10 x10(3)/mc L 12/11/2023 4:[address] [facility] Lymph % 9.7 % 12/11/2023 4:[address] [facility] Lymph Absolute 0.84(L) 0.90 - 3.20 x10(3)/mc L 12/11/2023 4:[address] [facility] Monocyte % 7.0 % 12/11/2023 4:[address] [facility] Monocyte Absolute 0.61 0.30 - 0.90 x10(3)/mc L 12/11/2023 4:[address] [facility] Eos % 1.7 % 12/11/2023 4:[address] [facility] Eos Absolute 0.15 0.00 - 0.40 x10(3)/mc L 12/11/2023 4:[address] [facility] Basophil % 0.5 % 12/11/2023 4:[address] [facility] Baso Absolute 0.04 0.00 - 0.10 x10(3)/mc L 12/11/2023 4:[address] [facility] Immature Gran % 1.0 % 4:[address] [facility] Immature Gran Absolute 0.09(H) 0.00 - 0.04 x10(3)/mc L 12/11/2023 4:27 AM EDT [facility] Blood VENOUS BLOOD SPECIMEN / Unknown IP Care Team Draw / Unknown 12/11/2023 4:13 AM EDT 12/11/2023 4:19 AM EDT Zeus Rdz MD HEMATOLOGY ORDERABLE S Performing Organization Address City/[facility]/ZIP Co de Phone Number [facility] [place] [address] * POC, GLUCOSE (12/11/2023 4:10 AM EDT) Glucometer, POC 178 65 - 199 mg/dL 12/11/2023 4:11 AM EDT [facility] Comment:Supplemental ranges: <140 mg/dL before meals <180 mg/dL all other times of the day. Blood CAPILLARY BLOOD / Unknown 12/11/2023 4:10 AM EDT 12/11/2023 4:11 AM EDT Loi Encinas MD POINT OF CARE TEST ORDERABLES Performing Organization Address [facility] Co de Phone Number [facility] [place] [address] * (ABNORMAL) POC, GLUCOSE (12/11/2023 2:19 AM EDT) Glucometer, POC 254(H) 65 - 199 mg/dL 12/11/2023 2:20 AM EDT [facility] Comment:Supplemental ranges: <140 mg/dL before meals <180 mg/dL all other times of the day. Blood CAPILLARY BLOOD / Unknown 12/11/2023 2:19 AM EDT 12/11/2023 2:20 AM EDT Loi Encinas MD POINT OF CARE TEST ORDERABLES Performing Organization Address City/[facility]/ZIP Co de Phone Number [facility] [place] [address] * (ABNORMAL) Basic Metabolic Panel (2023 11:39 PM EDT) Glucose 136 65 - 199 mg/dL 12/11/2023 12:[address] [facility] Comment:Glucose Concentratio n >=200 mg/dL plus symptoms is consistent with Diabetes Mellitus. Blood Urea Nitrogen 78(H) 10 - 20 mg/dL 12/11/2023 12:[address] [facility] Creatinine 4.22(H) 0.80 - 1.50 mg/dL 12/11/2023 12:[address] [facility] Sodium 139 135 - 145 mMol/L 12/11/2023 12:[address] [facility] Potassium 6.7(HHH) 3.5 - 5.0 mMol/L 12/11/2023 12:[address] [facility] Chloride 108(H) 98 - 107 mMol/L 12/11/2023 12:[address] [facility] Carbon Dioxide 19(L) 22 - 31 mMol/L 12/11/2023 12:[address] [facility] Anion Gap 12 5 - 15 mMol/L 12/11/2023 12:[address] [facility] Calcium 8.7 8.5 - 10.5 mg/dL 12/11/2023 12:[address] [facility] Est Glomerular Filtration Rate - Male 17 mL/min/1. 73 m?? 12/11/2023 12:[address] [facility] Comment: This patient's estimated GFR [...] IP Care Team Draw / Unknown 2023 11:39 PM EDT 2023 11:50 PM EDT Loi Encinas MD CHEMISTRY ORDERABL ES [facility] [place] [address] * POC, GLUCOSE (2023 11:35 PM EDT) Glucometer, POC 145 65 - 199 mg/dL 2023 11:36 PM EDT [facility] Comment:Supplemental ranges: <140 mg/dL before meals <180 mg/dL all other times of the day. Blood CAPILLARY BLOOD / Unknown 2023 11:35 PM EDT 2023 11:37 PM EDT Loi Encinas MD POINT OF CARE TEST ORDERABLES Performing Organization Address City/[facility]/ZIP Co de Phone Number [facility] [place] [address] * POC, GLUCOSE (2023 9:28 PM EDT) Glucometer, POC 170 65 - 199 mg/dL 2023 9:29 PM EDT [facility] Comment:Supplemental ranges: <140 mg/dL before meals <180 mg/dL all other times of the day. Blood CAPILLARY BLOOD / Unknown 2023 9:28 PM EDT 2023 9:29 PM EDT Loi Encinas MD POINT OF CARE TEST ORDERABLES [facility] [place] [address] * (ABNORMAL) Basic Metabolic Panel (2023 8:21 PM EDT) Glucose 218(H) 65 - 199 mg/dL 2023 9:[address] [facility] Comment:Glucose Concentratio n >=200 mg/dL plus symptoms is consistent with Diabetes Mellitus. Blood Urea Nitrogen 78(H) 10 - 20 mg/dL 2023 9:[address] [facility] Creatinine 4.17(H) 0.80 - 1.50 mg/dL 2023 9:[address] [facility] Sodium 137 135 - 145 mMol/L 2023 9:[address] [facility] Potassium 6.0(H) 3.5 - 5.0 mMol/L 2023 9:[address] [facility] Chloride 109(H) 98 - 107 mMol/L 2023 9:[address] [facility] Carbon Dioxide 17(L) 22 - 31 mMol/L 2023 9:[address] [facility] Anion Gap 11 5 - 15 mMol/L 2023 9:[address] [facility] Calcium 8.8 8.5 - 10.5 mg/dL 2023 9:[address] [facility] Est Glomerular Filtration Rate - Male 17 mL/min/1. 73 m?? 2023 9:[address] [facility] Comment: This patient's estimated GFR [...] IP Care Team Draw / Unknown 2023 8:21 PM EDT 2023 8:31 PM EDT Loi Encinas MD CHEMISTRY ORDERABL ES Performing Organization Address City/[facility]/ZIP Co de Phone Number [facility] [place] [address] * (ABNORMAL) Phosphorus (2023 8:21 PM EDT) Phosphorus 6.7(H) 2.5 - 4.5 mg/dL 2023 9:01 PM EDT [facility] Blood VENOUS BLOOD SPECIMEN / Unknown IP Care Team Draw / Unknown 2023 8:21 PM EDT 2023 8:31 PM EDT Zeus Rdz MD CHEMISTRY ORDERABLES Performing Organization Address City/[facility]/ZIP Co de Phone Number [facility] [place] [address] * Magnesium (2023 8:21 PM EDT) Magnesium 0.96 0.69 - 1.07 mMol/L 2023 9:01 PM EDT [facility] Blood VENOUS BLOOD SPECIMEN / Unknown IP Care Team Draw / Unknown 2023 8:21 PM EDT 2023 8:31 PM EDT Zeus Rdz MD CHEMISTRY ORDERABLES Performing Organization Address City/[facility]/ZIP Co de Phone Number [facility] [place] [address] * (ABNORMAL) POC, GLUCOSE (2023 8:19 PM EDT) Glucometer, POC 217(H) 65 - 199 mg/dL 2023 8:20 PM EDT [facility] Comment:Supplemental ranges: <140 mg/dL before meals <180 mg/dL all other times of the day. Blood CAPILLARY BLOOD / Unknown 2023 8:19 PM EDT 2023 8:20 PM EDT Loi Encinas MD POINT OF CARE TEST ORDERABLES [facility] [place] [address] * (ABNORMAL) POC, GLUCOSE (2023 6:59 PM EDT) Glucometer, POC 208(H) 65 - 199 mg/dL 2023 7:00 PM EDT [facility] Comment:Supplemental ranges: <140 mg/dL before meals <180 mg/dL all other times of the day. Blood CAPILLARY BLOOD / Unknown 2023 6:59 PM EDT 2023 7:00 PM EDT Loi Encinas MD POINT OF CARE TEST ORDERABLES Performing Organization Address City/[facility]/ZIP Co de Phone Number [facility] [place] [address] * (ABNORMAL) Basic Metabolic Panel (2023 5:07 PM EDT) Glucose 226(H) 65 - 199 mg/dL 2023 5:52 PM EDT [facility] Comment:Glucose Concentratio n >=200 mg/dL plus symptoms is consistent with Diabetes Mellitus. Blood Urea Nitrogen 75(H) 10 - 20 mg/dL 2023 5:52 PM EDT [facility] Creatinine 4.18(H) 0.80 - 1.50 mg/dL 2023 5:52 PM EDT [facility] Sodium 139 135 - 145 mMol/L 2023 5:52 PM EDT [facility] Potassium 6.7(HHH) 3.5 - 5.0 mMol/L 2023 5:52 PM EDT [facility] Chloride 108(H) 98 - 107 mMol/L 2023 5:52 PM EDT [facility] Carbon Dioxide 20(L) 22 - 31 mMol/L 2023 5:52 PM EDT [facility] Anion Gap 11 5 - 15 mMol/L 2023 5:52 PM EDT [facility] Calcium 8.6 8.5 - 10.5 mg/dL 2023 5:52 PM EDT [facility] Est Glomerular Filtration Rate - Male 17 mL/min/1. 73 m?? 2023 5:52 PM EDT [facility] Comment: This patient's estimated GFR [...] PM EDT 2023 5:11 PM EDT Loi Encinas MD CHEMISTRY ORDERABL ES [facility] [place] [address] * Lactate, Whole Blood (2023 5:07 PM EDT) Lactate, Whole Blood 1.6 0.5 - 2.2 mmol/L 2023 5:14 PM EDT [facility] Blood VENOUS BLOOD SPECIMEN / Unknown IP Care Team Draw / Unknown 2023 5:07 PM EDT 2023 5:11 PM EDT Loi Encinas MD CHEMISTRY ORDERABL ES Performing Organization Address City/[facility]/ZIP Co de Phone Number [facility] [place] [address] * (ABNORMAL) POC, GLUCOSE (2023 4:58 PM EDT) Glucometer, POC 229(H) 65 - 199 mg/dL 2023 4:59 PM EDT [facility] Comment:Supplemental ranges: <140 mg/dL before meals <180 mg/dL all other times of the day. Blood CAPILLARY BLOOD / Unknown 2023 4:58 PM EDT 2023 4:59 PM EDT Loi Encinas MD POINT OF CARE TEST ORDERABLES Performing Organization Address City/[facility]/ZIP Co de Phone Number [facility] [place] [address] * (ABNORMAL) T4, free (2023 2:10 PM EDT) Free T4 0.85(L) 0.93 - 1.70 ng/dL 2023 4:55 PM EDT [facility] Blood VENOUS BLOOD SPECIMEN / Unknown IP Care Team Draw / Unknown 2023 2:10 PM EDT 2023 2:21 PM EDT Loi Encinas MD CHEMISTRY ORDERABL ES [facility] [place] [address] * (ABNORMAL) TSH [place] (2023 2:10 PM EDT) Thyroid Stimulating Hormone 10.70(H) 0.27 - 4.20 mcIU/mL 2023 4:25 PM EDT [facility] Blood VENOUS BLOOD SPECIMEN / Unknown IP Care Team Draw / Unknown 2023 2:10 PM EDT 2023 2:21 PM EDT Loi Encinas MD CHEMISTRY ORDERABL ES Performing Organization Address [facility] Co de Phone Number [facility] [place] [address] * (ABNORMAL) pro-Brain Natriuretic Peptide (2023 2:10 PM EDT) NT-proBNP 6,349(H) <=124 pg/mL 2023 3:02 PM EDT [facility] Blood VENOUS BLOOD SPECIMEN / Unknown IP Care Team Draw / Unknown 2023 2:10 PM EDT 2023 2:21 PM EDT Zeus Rdz MD CHEMISTRY ORDERABLES Performing Organization Address [facility] de Phone Number [facility] [place] [address] * APTT (2023 2:10 PM EDT) Partial Thromboplastin Time 33 25 - 37 sec 2023 2:35 PM EDT [facility] Comment: The PTT is NOT appropriate for heparin monitoring. Use the Anti-Xa level for heparin monitoring (HEP UFH) or LMWH monitoring (HEP LMW). A PTT less than 37 seconds generally indicates adequate hemostasis. Blood VENOUS BLOOD SPECIMEN / Unknown IP Care Team Draw / Unknown 2023 2:10 PM EDT 2023 2:21 PM EDT Zeus Rdz MD HEMATOLOGY ORDERABLE S Performing Organization Address [facility] Co de Phone Number [facility] [place] [address] * (ABNORMAL) Prothrombin Time (2023 2:10 PM EDT) Prothrombin Time 13.3(H) 9.4 - 12.5 sec 2023 2:35 PM EDT [facility] International Normalization Ratio 1.2 <=4.9 2023 2:35 PM EDT [facility] Comment: An INR < 2.0 [...] 2:10 PM EDT 2023 2:21 PM EDT Zeus Rdz MD HEMATOLOGY ORDERABLE S [facility] [place] [address] * (ABNORMAL) Hepatic Function Panel (2023 2:10 PM EDT) Albumin 3.4 3.2 - 5.2 g/dL 2023 3:02 PM EDT [facility] Aspartate Aminotransferase 23 <=39 unit/L 2023 3:02 PM EDT [facility] Alanine Aminotransferase 62(H) 0 - 55 unit/L 2023 3:02 PM EDT [facility] Alkaline Phosphatase 107 40 - 130 unit/L 2023 3:02 PM EDT [facility] Bilirubin, Total 0.3 <=1.3 mg/dL 2023 3:02 PM EDT [facility] Bilirubin, Direct <0.2 0.0 - 0.3 mg/dL 2023 3:02 PM EDT [facility] Protein, Total 6.5 6.1 - 8.0 g/dL 2023 3:02 PM EDT [facility] Blood VENOUS BLOOD SPECIMEN / Unknown IP Care Team Draw / Unknown 2023 2:10 PM EDT 2023 2:21 PM EDT Zeus Rdz MD CHEMISTRY ORDERABLES Performing Organization Address City/[facility]/ZIP Co de Phone Number [facility] [place] [address] * (ABNORMAL) Phosphorus (2023 2:10 PM EDT) Phosphorus 6.4(H) 2.5 - 4.5 mg/dL 2023 3:02 PM EDT [facility] Blood VENOUS BLOOD SPECIMEN / Unknown IP Care Team Draw / Unknown 2023 2:10 PM EDT 2023 2:21 PM EDT Zeus Rdz MD CHEMISTRY ORDERABLES Performing Organization Address City/[facility]/ZIP Co de Phone Number [facility] [place] [address] * Magnesium (2023 2:10 PM EDT) Magnesium 0.97 0.69 - 1.07 mMol/L 2023 3:02 PM EDT [facility] Blood VENOUS BLOOD SPECIMEN / Unknown IP Care Team Draw / Unknown 2023 2:10 PM EDT 2023 2:21 PM EDT Zeus Rdz MD CHEMISTRY ORDERABLES Performing Organization Address City/[facility]/ZIP Co de Phone Number [facility] [place] [address] * (ABNORMAL) CBC (with Diff) (2023 2:10 PM EDT) White Blood Cell 6.15 4.00 - 9.50 x10(3)/mc L 2023 2:[address] [facility] Red Blood Cell 3.65(L) 4.58 - 5.54 x10(6)/mc L 2023 2:[address] [facility] Hemoglobin 8.0(L) 13.7 - 16.5 g/dL 2023 2:[address] [facility] Hematocrit 27.8(L) 40.5 - 48.5 % 2023 2:[address] [facility] Mean Cell Volume 76.2(L) 82.9 - 93.1 fL 2023 2:[address] [facility] Mean Cell Hemoglobin 21.9(L) 27.5 - 32.1 pg 2023 2:[address] [facility] Mean Cell Hemoglobin Concentration 28.8(L) 32.0 - 35.7 g/dL 2023 2:[address] [facility] Platelet 220 145 - 357 x10(3)/mc L 2023 2:[address] [facility] Mean Platelet Volume 10.4 7.6 - 12.9 fL 2023 2:[address] [facility] RDW Standard Deviation 64.4(H) 36.0 - 45.0 fL 2023 2:[address] [facility] RDW coefficient of variation 23.3(H) 11.4 - 13.8 % 2023 2:[address] [facility] NRBC% auto 0.5 % 2023 2:[address] [facility] NRBC Absolute 0.03(H) <0.01 x10(3)/mc L 2023 2:[address] [facility] Neutrophil % 72.5 % 2023 2:[address] [facility] Neutrophil Absolute (ANC) - Automated 4.47 1.70 - 6.10 x10(3)/mc L 2023 2:28 PM EDT [facility] Lymph % 15.0 % 2023 2:28 PM EDT [facility] Lymph Absolute 0.92 0.90 - 3.20 x10(3)/mc L 2023 2:28 PM EDT [facility] Monocyte % 8.8 % 2023 2:28 PM EDT [facility] Monocyte Absolute 0.54 0.30 - 0.90 x10(3)/mc L 2023 2:28 PM EDT [facility] Eos % 2.3 % 2023 2:28 PM EDT [facility] Eos Absolute 0.14 0.00 - 0.40 x10(3)/mc L 2023 2:28 PM EDT [facility] Basophil % 0.7 % 2023 2:28 PM EDT [facility] Baso Absolute 0.04 0.00 - 0.10 x10(3)/mc L 2023 2:28 PM EDT [facility] Immature Gran % 0.7 % 2:28 PM EDT [facility] Immature Gran Absolute 0.04 0.00 - 0.04 x10(3)/mc L 2023 2:28 PM EDT [facility] Blood VENOUS BLOOD SPECIMEN / Unknown IP Care Team Draw / Unknown 2023 2:10 PM EDT 2023 2:21 PM EDT Zeus Rdz MD HEMATOLOGY ORDERABLE S [facility] [place] [address] * (ABNORMAL) Basic Metabolic Panel (2023 2:10 PM EDT) [facility] Glucose 131 65 - 199 mg/dL 2023 3:[address] [facility] Comment:Glucose Concentratio n >=200 mg/dL plus symptoms is consistent with Diabetes Mellitus. Blood Urea Nitrogen 75(H) 10 - 20 mg/dL 2023 3:[address] [facility] Creatinine 4.09(H) 0.80 - 1.50 mg/dL 2023 3:[address] [facility] Sodium 140 135 - 145 mMol/L 2023 3:[address] [facility] Potassium 6.8(HHH) 3.5 - 5.0 mMol/L 2023 3:[address] [facility] Chloride 111(H) 98 - 107 mMol/L 2023 3:[address] [facility] Carbon Dioxide 20(L) 22 - 31 mMol/L 2023 3:[address] [facility] Anion Gap 9 5 - 15 mMol/L 2023 3:[address] [facility] Calcium 8.7 8.5 - 10.5 mg/dL 2023 3:[address] [facility] Est Glomerular Filtration Rate - Male 17 mL/min/1. 73 m?? 2023 3:[address] [facility] Comment: This patient's estimated GFR [...] 2:10 PM EDT 2023 2:21 PM EDT Zeus Rdz MD CHEMISTRY ORDERABLES [facility] [place] [address] * XR Chest One View (2023 1:38 PM EDT) WORKSTATION ID [id number] RAD Anatomical Region Laterality Modality Chest N/A Digital Radiogra phy Impressions 2023 5:14 PM EDT Decreased left lower lobe atelectasis. Otherwise stable exam. Thank you for letting us participate in the care of this patient. ??If you are a health care provider and have any questions regarding this report, please contact the number below. ??For patients who have questions please contact the health customer care specialist that requested your imaging first. ? Electronically signed by: WILLY BRAGG MD, [facility] ([phone]), at 2023 5:14 PM Narrative 2023 5:14 PM EDT EXAMINATION: XR CHEST ONE VIEW CLINICAL HISTORY: Increased oxygen requirement from baseline TECHNIQUE: AP view of the chest COMPARISON: Chest radiograph 2023 CT chest 2023 FINDINGS: Slightly improved lung aeration with decreased left lower lobe atelectasis. No new consolidation. Trace left pleural effusion. No pneumothorax. Cardiomediastinal silhouette is enlarged but unchanged. No acute osseous findings. Procedure Note Willy Bragg MD - 2023 EXAMINATION: XR CHEST ONE VIEW CLINICAL HISTORY: Increased oxygen requirement from baseline TECHNIQUE: AP view of the chest COMPARISON: Chest radiograph 2023 CT chest 2023 FINDINGS: Slightly improved lung aeration with decreased left lower lobeatelectasis. No new consolidation. Trace left pleural effusion. No pneumothorax. Cardiomediastinal silhouette is enlarged but unchanged. No acute osseous findings. IMPRESSION Decreased left lower lobe atelectasis. Otherwise stable exam. Thank you for letting us participate in the care of this patient. If youare a health care provider and have any questions regarding this report,please contact the number below. For patients who have questions please contactthe health customer care specialist that requested your imaging first. Electronically signed by: WILLY BRAGG MD, [facility]([phone]), at 2023 5:14 PM Zeus Rdz MD IMG DX ORDERABLES * POC, GLUCOSE (2023 1:00 PM EDT) [facility] Glucometer, POC 88 65 - 199 mg/dL 2023 1:01 PM EDT [facility] Comment:Supplemental ranges: <140 mg/dL before meals <180 mg/dL all other times of the day. Blood CAPILLARY BLOOD / Unknown 2023 1:00 PM EDT 2023 1:02 PM EDT Zeus Rdz MD POINT OF CARE TEST O RDERABLES [facility] [place] [address] * EKG 12 Lead (2023 12:46 PM EDT) Ventricular rate 53 BPM MUSE SYSTEM Atrial Rate 53 BPM MUSE SYSTEM P-R Interval 216 ms MUSE SYSTEM QRS Duration 124 ms MUSE SYSTEM Q-T Interval 438 ms MUSE SYSTEM QTC Calculated (Bezet) 410 ms MUSE SYSTEM Calculated P [place] 51 degrees MUSE SYSTEM Calculated R [place] 83 degrees MUSE SYSTEM Calculated T [place] -5 degrees MUSE SYSTEM INTERPRETATION Sinus bradycardia with 1st degree A-V block RSR' or QR pattern in V1 suggests right ventricular conduction delay Inferior infarct (cited on or before 12-OCT-2018) Cannot rule out Anterior infarct (cited on or before 04-AUG-2023) Abnormal ECG When compared with ECG of 10-NOV-2023 12:25, MO interval has increased Vent. rate has decreased BY ??82 BPM RSR' pattern in V1 has replaced Incomplete right bundle branch block T wave inversion no longer evident in Lateral leads Confirmed by MD Darek, Liam ([id number]) on 12/12/2023 5:29:01 AM MUSE SYSTEM 2023 12:4 6 PM EDT 12/12/2023 5:29 AM EDT Zeus Rdz MD ECG ORDERABLES MUSE SYSTEM documented in this encounter Visit Diagnoses Diagnosis Congestive heart failure, unspecified HF chronicity, unspecified heart failure type Hyperkalemia Hyperpotassemia DONAL (acute kidney injury) Acute kidney failure, unspecified Acute respiratory failure with hypoxia Acute respiratory failure Acute on chronic heart failure with preserved ejection fraction (HFpEF) Acute kidney injury superimposed on chronic kidney disease Hyperkalemia Hyperpotassemia Acute hypercapnic respiratory failure Metabolic encephalopathy documented in this encounter Admitting Diagnoses Diagnosis CHF (congestive heart failure) Congestive heart failure, unspecified documented in this encounter Administered Medications Inactive Administered Medications - up to 3 most recent administrations Medication Order MAR Action Action Date Dose Rate Site acetaminophen (Ofirmev) (1,000 mg/100 mL) infusion 1,000 mg 1,000 mg, Intravenous, at 400 mL/hr, Administer over 15 Minutes, ONCE, 1 dose, On Mon12/17/23 at 0545, - Maximum dose of acetaminophen is 4,000 mg from all sources in 24 hours. - Unless otherwise specified, when ordered PRN for pain, acetaminophen should be given first if other PRN pain medications are ordered., Routine, Is ketorolac (Toradol) IV contraindicated? No, Can this patient tolerate oral medications or suppositories? Yes Given 12/17/2023 5:30 AM EDT 1,000 mg 400 mL/hr acetaminophen (Ofirmev) (1,000 mg/100 mL) infusion 1,000 mg 1,000 mg, Intravenous, at 400 mL/hr, Administer over 15 Minutes, ONCE, 1 dose, On Mon12/18/23 at 0400, - Maximum dose of acetaminophen is 4,000 mg from all sources in 24 hours. - Unless otherwise specified, when ordered PRN for pain, acetaminophen should be given first if other PRN pain medications are ordered., Routine, Is ketorolac (Toradol) IV contraindicated? No, Can this patient tolerate oral medications or suppositories? No Given 12/18/2023 3:35 AM EDT 1,000 mg 400 mL/hr acetaminophen (Tylenol) tablet 975 mg 975 mg (rounded from 1,000 mg), Oral, EVERY 6 HOURS PRN, Starting on 12/10/23 at 1238, Until Polina 12/21/23 at 1859, Pain, - Maximum dose of acetaminophen is 4,000 mg from all sources in 24 hours. - Unless otherwise specified, when ordered PRN for pain, acetaminophen should be given first if other PRN pain medications are ordered., Routine Given 12/21/2023 11:26 AM EDT 975 mg Given 12/20/2023 5:26 PM EDT 975 mg Given 12/19/2023 4:43 PM EDT 975 mg albuteroL (Proventil, Ventolin) (2.5 mg/3 mL) (0.083 %) nebulizer solution 2.5 mg 2.5 mg, Nebulization, 4 TIMES DAILY, First dose on Mon12/11/23 at 1000, Until Discontinued, Routine Given 12/18/2023 8:26 AM EDT 2.5 mg Given 12/17/2023 5:14 PM EDT 2.5 mg Given 12/17/2023 12:15 PM EDT 2.5 mg albuteroL (Proventil, Ventolin) (2.5 mg/3 mL) (0.083 %) nebulizer solution 2.5 mg 2.5 mg, Nebulization, EVERY 4 HOURS PRN, Starting on Mon12/18/23 at 1515, Until Polina 12/21/23 at 1859, Wheezing, Routine AMIOdarone (Pacerone) tablet 200 mg 200 mg, Oral, DAILY, First dose on 12/10/23 at 1300, Until Discontinued, Routine Given 12/21/2023 8:5 7 AM EDT 200 mg Given 12/20/2023 11:42 AM EDT 200 mg Given 12/19/2023 9:35 AM EDT 200 mg apixaban (Eliquis) tablet 2.5 mg 2.5 mg, Oral, 2 TIMES DAILY, First dose on 12/10/23 at 1300, Until Discontinued, Anticoagulant, Routine, apixaban (Eliquis) Indication: Non-Valvular Atrial Fibrillation Given 12/13/2023 8:13 AM EDT 2.5 mg Given 12/12/2023 8:06 PM EDT 2.5 mg Given 12/12/2023 11:03 AM EDT 2.5 mg apixaban (Eliquis) tablet 5 mg 5 mg, Oral, 2 TIMES DAILY, First dose (after last modification) on 12/16/23 at 2100, Until Discontinued, Anticoagulant, Routine, apixaban (Eliquis) Indication: Non-Valvular Atrial Fibrillation Given 12/21/2023 8:58 AM EDT 5 mg Given 12/20/2023 8:12 PM EDT 5 mg Given 12/20/2023 11:43 AM EDT 5 mg aspirin chewable tablet 81 mg 81 mg, Oral, DAILY, First dose on 12/10/23 at 1300, Until Discontinued, Routine Given 12/16/2023 9:30 AM EDT 81 mg Given 12/15/2023 8:53 AM EDT 81 mg Given 12/14/2023 2:35 PM EDT 81 mg atorvastatin (Lipitor) tablet 40 mg 40 mg, Oral, EVERY EVENING, First dose on 12/10/23 at 1700, Until Discontinued, Routine Given 12/20/2023 4:5 8 PM EDT 40 mg Given 12/19/2023 4:43 PM EDT 40 mg Given 12/18/2023 4:49 PM EDT 40 mg bisacodyL (Dulcolax) suppository 10 mg 10 mg, Rectal, DAILY PRN, Starting on 12/10/23 at 1535, Until Polina 12/21/23 at 1859, Constipation, Give if no BM within last 24 hr and rectal fullness is reported or assessed. Give concomitantly with any scheduled bowel medications ordered. , Routine bisacodyL EC (Dulcolax) tablet 10 mg 10 mg, Oral, 2 TIMES DAILY PRN, Starting on 12/10/23 at 1535, Until Polina 12/21/23 at 1859, Constipation, Give if no BM after 24 hr after prior interventions. BM expected in 6-8 hours. If BM desired sooner, use next ordered agent. Give concomitantly with any scheduled bowel medications ordered., Routine Given 2023 4:59 PM EDT 10 mg bumetanide (Bumex) tablet 6 mg 6 mg, Oral, USER SPECIFIED (2 times per day on Monday), First dose on Mon12/21/23 at 0900, Until Discontinued, Routine Given 12/21/2023 2:14 PM EDT 6 mg Given 12/21/2023 8:57 AM EDT 6 mg calcium gluconate 1g in sodium chloride 0.9% 50mL 1 g, Intravenous, ONCE, 1 dose, On Mon12/10/23 at 1800, Administer over 6 Minutes, Warning Vesicant/Irritant Medication Patient must be on cardiac nurse specialist when receiving calcium; calcium can exacerbate digoxin toxicity. Since the effect of calcium is transient, patients with hyperkalemia also require treatments to shift potassium into cells and increase potassium excretion. Infusion over 6 minutes - Bedside monitor required. New Bag 2023 6:06 PM EDT 1 g 500 mL/hr calcium gluconate 1g in sodium chloride 0.9% 50mL 1 g, Intravenous, ONCE, 1 dose, On Mon12/11/23 at 0045, Administer over 6 Minutes, Warning Vesicant/Irritant Medication Patient must be on cardiac nurse specialist when receiving calcium; calcium can exacerbate digoxin toxicity. Since the effect of calcium is transient, patients with hyperkalemia also require treatments to shift potassium into cells and increase potassium excretion. Infusion over 6 minutes - Bedside monitor required. New Bag 12/11/2023 12:41 AM EDT 1 g 500 mL/hr calcium gluconate 1g in sodium chloride 0.9% 50mL 1 g, Intravenous, ONCE, 1 dose, On Mon12/11/23 at 0515, Administer over 6 Minutes, Warning Vesicant/Irritant Medication Patient must be on cardiac nurse specialist when receiving calcium; calcium can exacerbate digoxin toxicity. Since the effect of calcium is transient, patients with hyperkalemia also require treatments to shift potassium into cells and increase potassium excretion. Infusion over 6 minutes - Bedside monitor required. New Bag 12/11/2023 5:13 AM EDT 1 g 500 mL/hr citalopram (CeleXA) tablet 10 mg 10 mg, Oral, DAILY, First dose on Mon12/10/23 at 1300, Until Discontinued, Routine Given 12/21/2023 8:58 AM EDT 10 mg Given 12/20/2023 11:44 AM EDT 10 mg Given 12/19/2023 9:35 AM EDT 10 mg clopidogreL (Plavix) tablet 75 mg 75 mg, Oral, DAILY, First dose on Mon12/10/23 at 1300, Until Discontinued, Routine Given 12/21/2023 8:58 AM EDT 75 mg Given 12/20/2023 11:44 AM EDT 75 mg Given 12/19/2023 9:35 AM EDT 75 mg cyclobenzaprine (Flexeril) tablet 5 mg 5 mg, Oral, ONCE, 1 dose, On Mon12/14/23 at 1600, Routine Given 12/14/2023 4:08 PM EDT 5 mg dextrose 10 % 250 mL IV bolus at 1,000 mL/hr, Intravenous, ONCE, 1 dose, On Mon12/11/23 at 0800, Give 250 mL of dextrose 10% intravenously, immediately followed by regular insulin 5 units intravenously. New Bag 12/11/2023 8:03 AM EDT 1000 mL/hr dextrose 10 % 250 mL IV bolus at 1,000 mL/hr, Intravenous, ONCE, 1 dose, On Mon12/11/23 at 1315, Give 250 mL of dextrose 10% intravenously, immediately followed by regular insulin 5 units intravenously. New Bag 12/11/2023 1:13 PM EDT 1000 mL/hr dextrose 10% infusion 250 mL, at 1,000 mL/hr, Intravenous, EVERY 15 MIN PRN, Starting on Mon12/10/23 at 1241, Until Polina 12/21/23 at 1859, For BG 50-70 mg/dL: Oral treatment preferred: If able to drink, give 120 mL juice or regular (not diet) soda OR if NPO, give 15 gram glucose 40% oral gel massaged into buccal mucosa OR if unconscious or uncooperative, give 25 gram (250 mL) dextrose 10% IV over 15 minutes per protocol OR, if no IV access, 1 mg glucagon IM. For BG less than 50 mg/dL: Oral treatment preferred: If able to drink, give 240 mL juice or regular (not diet) soda OR if NPO, give 30 gram glucose 40% oral gel massaged in buccal mucosa OR if unconscious or uncooperative, give 25 gram (250 mL) dextrose 10% IV over 15 minutes per protocol OR, if no IV access, 1 mg glucagon IM. Recheck BG in 15 minutes. May repeat juice/soda, gel, dextrose or glucagon once per episode. Notify provider if hypoglycemia does not resolve after two treatments. Providers should consider the following: administering longer-acting treatments for the duration of active insulin or hypoglycemia agent for persistent hypoglycemia and re-evaluating active insulin orders before administering the next dose. diphenhydrAMINE (Benadryl) capsule 50 mg 50 mg, Oral, NIGHTLY PRN, Starting on Mon12/13/23 at 0245, Until Polina 12/21/23 at 1859, Sleep, Second line for sleep if needed, Routine Given 12/13/2023 3:06 AM EDT 50 mg epoetin sha-epbx (Retacrit) injection 10,000 Units 10,000 Units, Intravenous, ONCE IN DIALYSIS PRN, 1 dose, Starting on Mon12/15/23 at 0944, Until Mon12/15/23 at 1338, Other, Dialysis (Intra-Procedure), Routine, What is the indication of use? End Stage Renal Disease (ESRD) on dialysis Given 12/15/2023 1:38 PM EDT 10,000 Units epoetin sha-epbx (Retacrit) injection 10,000 Units 10,000 Units, Intravenous, ONCE IN DIALYSIS PRN, 1 dose, Starting on Mon12/18/23 at 1039, Until Mon12/18/23 at 1441, Other, Dialysis (Intra-Procedure), Routine, What is the indication of use? End Stage Renal Disease (ESRD) on dialysis Given 12/18/2023 2:41 PM EDT 10,000 Units epoetin sha-epbx (Retacrit) injection 10,000 Units 10,000 Units, Intravenous, ONCE IN DIALYSIS PRN, 1 dose, Starting on Mon12/20/23 at 0610, Until Mon12/20/23 at 1021, Other, Dialysis (Intra-Procedure), Routine, What is the indication of use? End Stage Renal Disease (ESRD) on dialysis Given 12/20/2023 10:21 AM EDT 10,000 Units fentaNYL (pf) (50 mcg/mL) multi-dose injection 25-50 mcg 25-50 mcg, Intravenous, EVERY 3 MIN PRN, Starting on 12/11/23 at 1406, Until Mon12/11/23 at 1604, Pain, per unit protocol, For use in Interventional Radiology (IR) only for procedural sedation with direct provider supervision and verbal order. - Start dose: 50 mcg (reduce dose to 25 mcg if history of sedation sensitivity). - Titration dose: 25-50 mcg IV, (based on patient response) every 3 minutes PRN to maintain procedural pain less than 2 per Pain Scale. Maximum dose: 50 mcg/dose, 250 mcg/hour, Angio/IR (Intra-Procedure), Routine Given 12/11/2023 3:17 PM EDT 25 mcg Given 12/11/2023 2:51 PM EDT 25 mcg furosemide (Lasix) (10 mg/mL) injection 120 mg 120 mg, Intravenous, ONCE, 1 dose, On 12/11/23 at 0000 Given 2023 11:46 PM EDT 120 mg furosemide (Lasix) (10 mg/mL) injection 120 mg 120 mg, Intravenous, ONCE, 1 dose, On 12/11/23 at 1015 Given 12/11/2023 10:03 AM EDT 120 mg furosemide (Lasix) (10 mg/mL) injection 120 mg 120 mg, Intravenous, ONCE, 1 dose, On 12/16/23 at 1630 Given 12/16/2023 5:11 PM EDT 120 mg furosemide (Lasix) (10 mg/mL) injection 120 mg 120 mg, Intravenous, 2 TIMES DAILY, 2 doses, First dose on 12/17/23 at 1030, Last dose on 12/17/23 at 2100 Given 12/17/2023 8:14 PM EDT 120 mg Given 12/17/2023 10:28 AM EDT 120 mg furosemide (Lasix) (10 mg/mL) injection 120 mg 120 mg, Intravenous, 2 TIMES DAILY, 2 doses, First dose on Tu12/19/23 at 1700, Last dose on Mon12/20/23 at 0900 Given 12/20/2023 11:45 AM EDT 120 mg Given 12/19/2023 4:43 PM EDT 120 mg furosemide (Lasix) (10 mg/mL) injection 60 mg 60 mg, Intravenous, ONCE, 1 dose, On 12/16/23 at 1115 Given 12/16/2023 11:52 AM EDT 60 mg furosemide (Lasix) (10 mg/mL) injection 80 mg 80 mg, Intravenous, ONCE, 1 dose, On 12/10/23 at 1300 Given 2023 1:19 PM EDT 80 mg furosemide (Lasix) 160 mg in sodium chloride 0.9% 50 mL infusion 160 mg, Intravenous, ONCE, 1 dose, On 12/11/23 at 0600, Start rate at 75 mL/hr until completion. (4 mg/min) Maximum rate of 4 mg/min. New Bag 12/11/2023 6:37 AM EDT 160 mg glucagon (Glucagen) (1 mg/mL) injection solution 1 mg 1 mg, Intramuscular, EVERY 15 MIN PRN, Starting on 12/10/23 at 1241, Until Polina 12/21/23 at 1859, Low blood sugar, For BG 50-70 mg/dL: Oral treatment preferred: If able to drink, give 120 mL juice or regular (not diet) soda OR if NPO, give 15 gram glucose 40% oral gel massaged into buccal mucosa OR if unconscious or uncooperative, give 25 gram (250 mL) dextrose 10% IV over 15 minutes per protocol OR, if no IV access, 1 mg glucagon IM. For BG less than 50 mg/dL: Oral treatment preferred: If able to drink, give 240 mL juice or regular (not diet) soda OR if NPO, give 30 gram glucose 40% oral gel massaged in buccal mucosa OR if unconscious or uncooperative, give 25 gram (250 mL) dextrose 10% IV over 15 minutes per protocol OR, if no IV access, 1 mg glucagon IM. Recheck BG in 15 minutes. May repeat juice/soda, gel, dextrose or glucagon once per episode. Notify provider if hypoglycemia does not resolve after two treatments. Providers should consider the following: administering longer-acting treatments for the duration of active insulin or hypoglycemia agent for persistent hypoglycemia and re-evaluating active insulin orders before administering the next dose. , Routine glucose (Glutose) 40% oral geL 15-30 g of glucose, Buccal, EVERY 15 MIN PRN, Starting on 12/10/23 at 1241, Until Polina 12/21/23 at 1859, Low blood sugar, For BG 50-70 mg/dL: Oral treatment preferred: If able to drink, give 120 mL juice or regular (not diet) soda OR if NPO, give 15 gram glucose 40% oral gel massaged into buccal mucosa OR if unconscious or uncooperative, give 25 gram (250 mL) dextrose 10% IV over 15 minutes per protocol OR, if no IV access, 1 mg glucagon IM. For BG less than 50 mg/dL: Oral treatment preferred: If able to drink, give 240 mL juice or regular (not diet) soda OR if NPO, give 30 gram glucose 40% oral gel massaged in buccal mucosa OR if unconscious or uncooperative, give 25 gram (250 mL) dextrose 10% IV over 15 minutes per protocol OR, if no IV access, 1 mg glucagon IM. Recheck BG in 15 minutes. May repeat juice/soda, gel, dextrose or glucagon once per episode. Notify provider if hypoglycemia does not resolve after two treatments. Providers should consider the following: administering longer-acting treatments for the duration of active insulin or hypoglycemia agent for persistent hypoglycemia and re-evaluating active insulin orders before administering the next dose. 1 tube of Glutose-15 contains 15 grams of glucose (net weight of tube = 37.5 grams.), Routine heparin (porcine) (1,000 units/mL) injection 1,000-10,000 Units 1,000-10,000 Units, Intercatheter, ONCE IN DIALYSIS PRN, 1 dose, Starting on Mon12/12/23 at 0620, Until Mon12/12/23 at 1118, Line Care, Per Protocol, Catheter lock use catheter specified fill volume per dialysis protocol. For use in Dialysis only. Procedure ID: 660 (Hemodialysis CVAD Procedure - Care and Maintenance) in Clinical Policies., Dialysis (Intra-Procedure), Routine Given 12/12/2023 11:18 AM EDT 4,000 Units heparin (porcine) (1,000 units/mL) injection 1,000-10,000 Units 1,000-10,000 Units, Intercatheter, ONCE IN DIALYSIS PRN, 1 dose, Starting on Mon12/14/23 at 0621, Until Polina 12/14/23 at 1217, Line Care, Per Protocol, Catheter lock use catheter specified fill volume per dialysis protocol. For use in Dialysis only. Procedure ID: 660 (Hemodialysis CVAD Procedure - Care and Maintenance) in Clinical Policies., Dialysis (Intra-Procedure), Routine Given 12/14/2023 12:17 PM EDT 4,000 Units heparin (porcine) (1,000 units/mL) injection 1,000-10,000 Units 1,000-10,000 Units, Intercatheter, ONCE IN DIALYSIS PRN, 1 dose, Starting on Mon12/15/23 at 0944, Until Mon12/15/23 at 1416, Line Care, Per Protocol, Catheter lock use catheter specified fill volume per dialysis protocol. For use in Dialysis only. Procedure ID: 660 (Hemodialysis CVAD Procedure - Care and Maintenance) in Clinical Policies., Dialysis (Intra-Procedure), Routine Given 12/15/2023 2:16 PM EDT 4,000 Units heparin (porcine) (1,000 units/mL) injection 1,000-10,000 Units 1,000-10,000 Units, Intercatheter, ONCE IN DIALYSIS PRN, 1 dose, Starting on Mon12/20/23 at 0610, Until Mon12/20/23 at 0842, Line Care, Per Protocol, Catheter lock use catheter specified fill volume per dialysis protocol. For use in Dialysis only. Procedure ID: [id number] (Hemodialysis CVAD Procedure - Care and Maintenance) in Clinical Policies., Dialysis (Intra-Procedure), Routine Given 12/20/2023 8:42 AM EDT 4,000 Units heparin (porcine) (1,000 units/mL) injection 3,000 Units 3,000 Units, Intravenous, ONCE IN DIALYSIS, 1 dose, On Mon12/12/23 at 0830, For use in Dialysis only., Dialysis (Intra-Procedure), Routine Given 12/12/2023 8:10 AM EDT 3,000 Un its HYDROmorphone (Dilaudid) (0.2 mg/1 mL) injection syringe 0.2 mg 0.2 mg, Intravenous, ONCE, 1 dose, On Mon12/15/23 at 1330, STAT Given 12/15/2023 1:31 PM EDT 0.2 mg HYDROmorphone (Dilaudid) tablet 1 mg 1 mg, Oral, ONCE, 1 dose, On Mon12/12/23 at 1400, Routine Given 12/12/2023 2:18 PM EDT 1 mg HYDROmorphone (Dilaudid) tablet 1 mg 1 mg, Oral, ONCE PRN, 1 dose, Starting on Mon12/15/23 at 0456, Until Mon12/15/23 at 0743, Pain, Routine Given 12/15/2023 7:43 AM EDT 1 mg HYDROmorphone (Dilaudid) tablet 1 mg 1 mg, Oral, ONCE, 1 dose, On 12/16/23 at 1345, Routine Given 12/16/2023 1:49 PM EDT 1 mg HYDROmorphone (Dilaudid) tablet 2 mg 2 mg, Oral, ONCE, 1 dose, On 12/16/23 at 1045, Routine Given 12/16/2023 10:46 AM EDT 2 mg HYDROmorphone (Dilaudid) tablet 2 mg 2 mg, Oral, EVERY 8 HOURS PRN, Starting on 12/16/23 at 1600, Until Mon12/19/23 at 1242, Pain, Routine Given 12/19/2023 4:06 AM EDT 2 mg Given 12/18/2023 6:09 PM EDT 2 mg Given 12/18/2023 8:34 AM EDT 2 mg HYDROmorphone (Dilaudid) tablet 2 mg 2 mg, Oral, ONCE, 1 dose, On 12/17/23 at 0245, Routine Given 12/17/2023 2:33 AM EDT 2 mg Jesica Edilson lei (Right) HYDROmorphone (Dilaudid) tablet 2 mg 2 mg, Oral, ONCE, 1 dose, On 12/18/23 at 2045, Routine Given 12/18/2023 8:45 PM EDT 2 mg HYDROmorphone (Dilaudid) tablet 2 mg 2 mg, Oral, 2 TIMES DAILY PRN, Starting on Mon12/19/23 at 1241, Until Polina 12/21/23 at 1859, Pain, Routine Given 12/21/2023 2:09 AM EDT 2 mg Given 12/20/2023 12:08 PM EDT 2 mg Given 12/20/2023 6:46 AM EDT 2 mg insulin lispro (HumaLOG;Admelog) (100 unit/mL) subcutaneous injection vial 0-8 Units 0-8 Units, Subcutaneous, 3 TIMES DAILY WITH MEALS, First dose on Mon12/10/23 at 1300, Until Discontinued, ME[employer] Give 1 unit for every 10 grams carbohydrate. Hold if not eating or if BG less than 70 mg/dL. , Routine Given 12/21/2023 12:23 PM EDT 4 Units Given 12/21/2023 8:56 AM EDT 5 Units Given 12/20/2023 4:58 PM EDT 4 Units insulin lispro (HumaLOG;Admelog) (100 unit/mL) subcutaneous injection vial 1-4 Units 1-4 Units, Subcutaneous, 3 TIMES DAILY BEFORE MEALS, First dose on 12/10/23 at 1300, Until Discontinued, CORRECTION BOLUS [1-4 Units] Sensitive Sliding Scale (BG in mg/dL): Correction factor 40 (1 unit of insulin is expected to drop the glucose 40 mg/dL) ?? BG 160 - 200 Give 1 unit BG 201 - 240 Give 2 units BG 241 - 280 Give 3 units and recheck BG in 2 hours. BG greater than 280, give 4 units and recheck BG in 2 hours. - If recheck BG is LESS than 280, give no insulin and resume schedule - If recheck BG is GREATER than or EQUAL to 280, give 4 units and repeat BG in 2 hours & call for new insulin orders. DO NOT hold if NPO, unless specifically told to do so. ?? Per Inpatient Subcutaneous Insulin Policy, recheck a BG of greater than 240 mg/dL in 2 hours., Routine Given 12/21/2023 11:26 AM EDT 4 Units Given 12/21/2023 6:45 AM EDT 1 Units Given 12/20/2023 4:36 PM EDT 4 Units insulin regular (HumuLIN R,NovoLIN R) (100 unit/mL) injection vial 5 Units 5 Units, Intravenous, ONCE, 1 dose, On 12/11/23 at 0830, Give 250 mL of dextrose 10% intravenously, immediately followed by regular insulin 5 units intravenously., Routine Given 12/11/2023 8:22 AM EDT 5 Units insulin regular (HumuLIN R,NovoLIN R) (100 unit/mL) injection vial 5 Units 5 Units, Intravenous, ONCE, 1 dose, On Mon12/11/23 at 1315, Give 250 mL of dextrose 10% intravenously, immediately followed by regular insulin 5 units intravenously., Routine Given 12/11/2023 1:27 PM EDT 5 Units insulin regular human 10 Units in dextrose 10 % 500 mL infusion 10 Units, Intravenous, ONCE, 1 dose, On Mon12/10/23 at 1845, Administer over 1 Hours, This order should only be used as part of the hyperkalemia order set. Monitor BG every two hours X 3 and PRN. New Bag 2023 6:56 PM EDT 10 Units insulin regular human 10 Units in dextrose 10 % 500 mL infusion 10 Units, Intravenous, ONCE, 1 dose, On Mon12/11/23 at 0130, Administer over 1 Hours, This order should only be used as part of the hyperkalemia order set. Monitor BG every two hours X 3 and PRN. New Bag 12/11/2023 1:02 AM EDT 10 Units insulin regular human 10 Units in dextrose 10 % 500 mL infusion 10 Units, Intravenous, ONCE, 1 dose, On Mon12/11/23 at 0600, Administer over 1 Hours, This order should only be used as part of the hyperkalemia order set. Monitor BG every two hours X 3 and PRN. New Bag 12/11/2023 5:48 AM EDT 10 Units iron sucrose (Venofer) 300 mg in sodium chloride 0.9% 115 mL infusion 300 mg, Intravenous, ONCE, 1 dose, On Mon12/12/23 at 1600, Administer over 90 Minutes, Patients should be closely monitored for signs of hypersensitivity during and for at least 30 min after each administration. The observation period is not needed for patients who have demonstrated tolerability. New Bag 12/12/2023 4:40 PM EDT 300 mg 76.7 mL/hr iron sucrose (Venofer) 300 mg in sodium chloride 0.9% 115 mL infusion 300 mg, Intravenous, ONCE IN DIALYSIS, 1 dose, On Mon12/14/23 at 0715, Administer over 90 Minutes, Patients should be closely monitored for signs of hypersensitivity during and for at least 30 min after each administration. The observation period is not needed for patients who have demonstrated tolerability., Dialysis (Intra-Procedure) New Bag 12/14/2023 9:55 AM EDT 300 mg 76.7 mL/hr lactulose (Chronulac) (0.67 gram/mL) oral liquid 20 g 20 g, Oral, DAILY PRN, Starting on 12/10/23 at 1535, Until Polina 12/21/23 at 1859, Constipation, Give if no BM 24 hr after prior interventions or if BM is desired within 2 hr. Give concomitantly with any scheduled bowel medications ordered, Routine lactulose (Chronulac) (0.67 gram/mL) oral liquid 20 g 20 g, Oral, DAILY PRN, Starting on 12/10/23 at 1535, Until Polina 12/21/23 at 1859, Constipation, Give an additional (2nd) dose of lactulose 2 hr after 1st dose if still no BM. Disregard if 1st dose of lactulose not ordered. Give concomitantly with any scheduled bowel medications ordered. , Routine levothyroxine (Synthroid) tablet 25 mcg 25 mcg, Oral, EVERY MORNING, First dose on Mon12/12/23 at 1215, Until Discontinued, Routine Given 12/21/2023 6:45 AM EDT 25 mcg Given 12/20/2023 6:06 AM EDT 25 mcg Given 12/19/2023 6:04 AM EDT 25 mcg lidocaine (Lidoderm) 5% patch 1 patch 1 patch, Transdermal, Administer over 12 Hours, EVERY 24 HOURS, First dose on 12/17/23 at 0600, Until Discontinued, Apply patch(es) for 12 hours, and then remove for 12 hours., Routine Patch Applied 12/19/2023 5:56 AM EDT 1 patch 06- Back Upper (Right) Patch Applied 12/18/2023 6:20 AM EDT 1 patch 04- Shoulder (Right) Patch Applied 12/17/2023 5:30 AM EDT 1 patch 04- Shoulder (Right) lidocaine (Xylocaine) 1% (10 mg/mL) injection 10 mg 10 mg, Subcutaneous, ONCE, 1 dose, On 12/11/23 at 1430, For use in Interventional Radiology (IR) only for procedure with direct provider supervision and verbal order., Angio/IR (Intra-Procedure), Routine Given 12/11/2023 3:06 PM EDT 10 mg 20-Other (document i n comment section) LORazepam (Ativan) (2 mg/mL) injection 1 mg 1 mg, Intravenous, ONCE, 1 dose, On Mon12/11/23 at 2200, Routine Given 12/11/2023 10:05 PM EDT 1 mg losartan (Cozaar) tablet 50 mg 50 mg, Oral, 2 TIMES DAILY, First dose on Mon12/10/23 at 1300, Until Discontinued, Routine Given 2023 1:17 PM EDT 50 mg magnesium citrate oral liquid 296 mL 296 mL, Oral, ONCE PRN, 1 dose, Starting on Mon12/10/23 at 1535, Until Polina 12/21/23 at 1859, Constipation, Give if no BM 2 hr after previous interventions. If 2 hr after mag citrate there is still no BM, see order for tap water enema, if placed. Give concomitantly with any scheduled bowel medications ordered., Routine metOLazone (Zaroxolyn) tablet 5 mg 5 mg, Oral, ONCE, 1 dose, On Mon12/11/23 at 0530, Routine Given 12/11/2023 5:13 AM EDT 5 mg morphine (2 mg/mL) injection 1 mg 1 mg, Intravenous, ONCE, 1 dose, On Mon12/13/23 at 1900, Routine Given 12/13/2023 6:39 PM EDT 1 mg morphine (2 mg/mL) injection 1 mg 1 mg, Intravenous, ONCE, 1 dose, On Mon12/13/23 at 2230, Routine Given 12/13/2023 10:27 PM EDT 1 mg morphine (2 mg/mL) injection 1 mg 1 mg, Intravenous, ONCE, 1 dose, On Mon12/14/23 at 1930, Routine Given 12/14/2023 7:25 PM EDT 1 mg ondansetron (pf) (Zofran) (2 mg/mL) injection 4 mg 4 mg, Intravenous, EVERY 8 HOURS PRN, Starting on Mon12/10/23 at 2332, Until Mon12/21/23 at 1859, Nausea, Vomiting Given 12/18/2023 5:00 PM EDT 4 mg Given 12/15/2023 4:02 AM EDT 4 mg Given 12/13/2023 1:36 AM EDT 4 mg ondansetron (pf) (Zofran) (2 mg/mL) injection 4 mg 4 mg, Intravenous, ONCE, 1 dose, On Mon12/12/23 at 0930 Given 12/12/2023 9:26 AM EDT 4 mg pantoprazole EC (Protonix) tablet 40 mg 40 mg, Oral, DAILY, First dose on Mon12/10/23 at 1300, Until Discontinued, DO NOT CRUSH OR OPEN, Routine Given 12/21/2023 8:57 AM EDT 40 mg Given 12/20/2023 11:43 AM EDT 40 mg Given 12/19/2023 9:35 AM EDT 40 mg perflutren lipid microspheres (Definity) injection 0.5 mL 0.5 mL, Intravenous, ONCE PRN, 1 dose, Starting on Mon12/11/23 at 0904, Until Mon12/11/23 at 0904, Other, Routine Given 12/11/2023 9:04 AM EDT 0.5 mLs polyethylene glycoL (Miralax) packet 17 g 17 g, Oral, DAILY PRN, Starting on Mon12/10/23 at 1535, Until Mon12/21/23 at 1859, Constipation, Give if no BM within last 24 hr. Give concomitantly with any scheduled bowel medications ordered. , Routine Given 12/15/2023 9:27 PM EDT 17 g Given 2023 4:59 PM EDT 17 g QUEtiapine (Seroquel) tablet 50 mg 50 mg, Oral, NIGHTLY PRN, Starting on Mon12/13/23 at 2145, Until Mon12/20/23 at 1007, Agitation, for insomnia, First line for sleep, Routine Given 12/19/2023 8:07 PM EDT 50 mg Given 12/18/2023 8:20 PM EDT 50 mg Given 12/17/2023 11:05 PM EDT 50 mg QUEtiapine (Seroquel) tablet 50 mg 50 mg, Oral, ONCE, 1 dose, On Mon12/19/23 at 2315, Routine Given 12/19/2023 11:03 PM EDT 50 mg rOPINIRole (Requip) tablet 0.25 mg 0.25 mg, Oral, ONCE, 1 dose, On Mon12/12/23 at 1530, Routine Given 12/12/2023 3:37 PM EDT 0.25 mg rOPINIRole (Requip) tablet 0.25 mg 0.25 mg, Oral, NIGHTLY, First dose on Polina 12/14/23 at 1900, Until Discontinued, Routine Given 12/14/2023 6:51 PM EDT 0.25 mg rOPINIRole (Requip) tablet 0.5 mg 0.5 mg, Oral, NIGHTLY, First dose (after last modification) on Mon12/15/23 at 1900, Until Discontinued, Routine Given 12/20/2023 6:45 PM EDT 0.5 mg Given 12/19/2023 6:09 PM EDT 0.5 mg Given 12/18/2023 6:09 PM EDT 0.5 mg rOPINIRole (Requip) tablet 0.5 mg 0.5 mg, Oral, NIGHTLY PRN, Starting on Mon12/15/23 at 1251, Until Polina 12/21/23 at 1859, if continuing to have restless leg symptoms after scheduled ropinirole, Routine Given 12/19/2023 8:06 PM EDT 0.5 mg Given 12/18/2023 2:37 PM EDT 0.5 mg Given 12/15/2023 10:27 PM EDT 0.5 mg sacubitriL-valsartan (Entresto) 24-26 mg per tablet 1 tablet 1 tablet, Oral, 2 TIMES DAILY, First dose on 12/17/23 at 2100, Until Discontinued, Routine, Is this a continuation of home medication? No, This is a high cost medication that requires prior authorization by insurance.??Will you verify??that it is??approved/authorized by patient's insurance prior to discharge? Yes, For new starts, has the patient been off Tito inhibitors for at least 36 hours (due to risk of angioedema)? Yes Given 12/21/2023 8:58 AM EDT 1 tablet Given 12/20/2023 8:12 PM EDT 1 tablet Given 12/20/2023 11:43 AM EDT 1 tablet senna-docusate (Pericolace) 8.6-50 mg per tablet 2 tablet 2 tablet, Oral, 2 TIMES DAILY, First dose on 12/10/23 at 2100, Until Discontinued, Hold for loose stool. , Routine Given 12/21/2023 8:57 AM EDT 2 tablets Given 12/20/2023 11:43 AM EDT 2 tablets Given 12/19/2023 8:07 PM EDT 2 tablets sodium bicarbonate tablet 1,950 mg 1,950 mg, Oral, ONCE, 1 dose, On Mon12/11/23 at 0545, Routine Given 12/11/2023 6:28 AM EDT 1,950 mg sodium bicarbonate tablet 1,950 mg 1,950 mg, Oral, ONCE, 1 dose, On Mon12/11/23 at 0800, Routine Given 12/11/2023 8:02 AM EDT 1,950 mg sodium chloride 0.9 % (flush) (BD PosiFlush Normal Saline 0.9) flush 5 mL 5 mL, Intravenous, 2 TIMES DAILY, First dose on Mon12/10/23 at 1300, Until Discontinued, Routine Given 12/21/2023 8:59 AM EDT 5 mLs Given 12/20/2023 8:12 PM EDT 5 mLs Given 12/20/2023 11:45 AM EDT 5 mLs sodium chloride 0.9% infusion 100 mL, Intravenous, EVERY 15 MIN PRN, Starting on Mon12/20/23 at 0610, Until Mon12/21/23 at 1859, If administration of NS boluses will result in positive fluid balance at end of treatment, contact ., Dialysis (Intra-Procedure) sodium zirconium cyclosilicate (Lokelma) oral powder packet 10 g 10 g, Oral, EVERY 8 HOURS SCHEDULED, 6 doses, First dose on Mon12/10/23 at 1530, Last dose on Mon12/12/23 at 0600, Empty entire contents of packet into cup containing at least 3 tablespoons (45 mL) or more of water. Stir well and have patient drink immediately. If powder remains, add water, stir and drink. Repeat until no powder remains. Avoid giving other oral medications 2 hours before or after sodium zirconium cyclosilicate., Routine Given 12/12/2023 6:12 AM EDT 10 g Given 12/11/2023 9:15 PM EDT 10 g Given 12/11/2023 1:15 PM EDT 10 g torsemide (Demadex) tablet 40 mg 40 mg, Oral, DAILY, First dose on Mon12/10/23 at 1300, Until Discontinued, Routine Given 2023 1:16 PM EDT 40 mg documented in this encounter Active and Recently Administered Medications Times are shown in EDT. Scheduled Medication Order 12/19/2023 12/20/2023 12/21/2023 AMIOdarone (Pacerone) tablet 200 mg 200 mg, Oral, DAILY, First dose on 12/10/23 at 1300, Until Discontinued, Routine 0935 (Given - Provider: Feng Perez RN) 1142 (Given - Provider: Katya Darling RN) 0857 (Given - Provider: Katya Darling RN) apixaban (Eliquis) tablet 5 mg 5 mg, Oral, 2 TIMES DAILY, First dose (after last modification) on 12/16/23 at 2100, Until Discontinued, Anticoagulant, Routine, apixaban (Eliquis) Indication: Non-Valvular Atrial Fibrillation 0936 (Given - Provider: Feng Perez RN)2006 (Given - Provider: Carlos Luciano RN) 1143 (Given - Provider: Katya Darling RN)2011 (Given - Provider: Carlos Luciano RN) 0858 (Given - Provider: Katya Darling RN) atorvastatin (Lipitor) tablet 40 mg 40 mg, Oral, EVERY EVENING, First dose on 12/10/23 at 1700, Until Discontinued, Routine 1643 (Given - Provider: Feng Perez RN) 1658 (Given - Provider: Katya Darling RN) bumetanide (Bumex) tablet 6 mg 6 mg, Oral, USER SPECIFIED (2 times per day on Monday), First dose on Mon12/21/23 at 0900, Until Discontinued, Routine 0857 (Given - Provider: Katya Darling RN)1414 (Given - Provider: Katya Darling RN) citalopram (CeleXA) tablet 10 mg 10 mg, Oral, DAILY, First dose on 12/10/23 at 1300, Until Discontinued, Routine 0935 (Given - Provider: Feng Perez RN) 1144 (Given - Provider: Katya Darling RN) 0858 (Given - Provider: Katya Darling, DELL) clopidogreL (Plavix) tablet 75 mg 75 mg, Oral, DAILY, First dose on Mon12/10/23 at 1300, Until Discontinued, Routine 0935 (Given - Provider: Feng Perez RN) 1144 (Given - Provider: Katya Darling RN) 0858 (Given - Provider: Katya Darling RN) furosemide (Lasix) (10 mg/mL) injection 120 mg (COMPLETED) 120 mg, Intravenous, 2 TIMES DAILY, 2 doses, First dose on Mon12/19/23 at 1700, Last dose on Mon12/20/23 at 0900 1643 (Given - Provider: eFng Perez RN) 1145 (Given - Provider: Katya Darling RN) insulin lispro (HumaLOG;Admelog) (100 unit/mL) subcutaneous injection vial 0-8 Units 0-8 Units, Subcutaneous, 3 TIMES DAILY WITH MEALS, First dose on Mon12/10/23 at 1300, Until Discontinued, [employer] Give 1 unit for every 10 grams carbohydrate. Hold if not eating or if BG less than 70 mg/dL. , Routine 0741 (Given - Provider: Feng Perez RN)1212 (Given - Provider: Feng Perez RN)1806 (Given - Provider: Feng Perez RN) 0800 (Not Given - Provider: Katya Darling RN - Reason: See comment - Comment: off unit)1308 (Given - Provider: Katya Darling RN - Comment: late lunch, consumed 56G)1658 (Given - Provider: Katya Darling, DELL) 0856 (Given - Provider: Katya Darling RN)1223 (Given - Provider: Katya Darling RN) insulin lispro (HumaLOG;Admelog) (100 unit/mL) subcutaneous injection vial 1-4 Units(Linked Group 1) 1-4 Units, Subcutaneous, 3 TIMES DAILY BEFORE MEALS, First dose on Mon12/10/23 at 1300, Until Discontinued, CORRECTION BOLUS [1-4 Units] Sensitive Sliding Scale (BG in mg/dL): Correction factor 40 (1 unit of insulin is expected to drop the glucose 40 mg/dL) ?? BG 160 - 200 Give 1 unit BG 201 - 240 Give 2 units BG 241 - 280 Give 3 units and recheck BG in 2 hours. BG greater than 280, give 4 units and recheck BG in 2 hours. - If recheck BG is LESS than 280, give no insulin and resume schedule - If recheck BG is GREATER than or EQUAL to 280, give 4 units and repeat BG in 2 hours & call for new insulin orders. DO NOT hold if NPO, unless specifically told to do so. ?? Per Inpatient Subcutaneous Insulin Policy, recheck a BG of greater than 240 mg/dL in 2 hours., Routine 0648 (Given - Provider: Ruby Head RN)1212 (Given - Provider: Feng Perez, DELL)1659 (Given - Provider: Feng Perez RN) 0730 (Not Given - Provider: Katya Darling RN - Reason: See comment - Comment: off unit)1142 (Given - Provider: Katya Darling, DELL)1437 (Given - Provider: Katya Darling RN - Comment: 2 hours post recheck per protocol)1636 (Given - Provider: Katya Darling RN) 0645 (Given - Provider: Carlos Luciano, DELL)1126 (Given - Provider: Katya Darling RN)1630 (Due) levothyroxine (Synthroid) tablet 25 mcg 25 mcg, Oral, EVERY MORNING, First dose on Mon12/12/23 at 1215, Until Discontinued, Routine 0604 (Given - Provider: Ruby Head RN) 0606 (Given - Provider: Carlos Luciano, DELL) 0645 (Given - Provider: Carlos Luciano, DELL) lidocaine (Lidoderm) 5% patch 1 patch 1 patch, Transdermal, Administer over 12 Hours, EVERY 24 HOURS, First dose on Mon12/17/23 at 0600, Until Discontinued, Apply patch(es) for 12 hours, and then remove for 12 hours., Routine 0556 (Patch Applied - Provider: Ruby Head RN)1756 (Patch Removed - Provider: Feng Perez RN) 0600 (Hold - Provider: Carlos Luciano RN - Reason: See comment - Comment: pt sleeping) 0600 (Hold - Provider: Carlos Luciano RN - Reason: See comment - Comment: pt sleeping) pantoprazole EC (Protonix) tablet 40 mg 40 mg, Oral, DAILY, First dose on 12/10/23 at 1300, Until Discontinued, DO NOT CRUSH OR OPEN, Routine 0935 (Given - Provider: Feng Perez RN) 1143 (Given - Provider: Katya Darling RN) 0857 (Given - Provider: Katya Darling RN) QUEtiapine (Seroquel) tablet 50 mg (COMPLETED) 50 mg, Oral, ONCE, 1 dose, On Mon12/19/23 at 2315, Routine 2303 (Given - Provider: Carlos Luciano RN) rOPINIRole (Requip) tablet 0.5 mg 0.5 mg, Oral, NIGHTLY, First dose (after last modification) on Mon12/15/23 at 1900, Until Discontinued, Routine 1809 (Given - Provider: Feng Perez RN) 1845 (Given - Provider: Katya Darling, DELL) sacubitriL-valsartan (Entresto) 24-26 mg per tablet 1 tablet 1 tablet, Oral, 2 TIMES DAILY, First dose on 12/17/23 at 2100, Until Discontinued, Routine, Is this a continuation of home medication? No, This is a high cost medication that requires prior authorization by insurance.??Will you verify??that it is??approved/authorized by patient's insurance prior to discharge? Yes, For new starts, has the patient been off Tito inhibitors for at least 36 hours (due to risk of angioedema)? Yes 0936 (Given - Provider: Feng Perez RN)2006 (Given - Provider: Carlos Luciano RN) 1143 (Given - Provider: Katya Darling RN)2011 (Given - Provider: Carlos Luciano RN) 0858 (Given - Provider: Katya Darling, DELL) senna-docusate (Pericolace) 8.6-50 mg per tablet 2 tablet 2 tablet, Oral, 2 TIMES DAILY, First dose on 12/10/23 at 2100, Until Discontinued, Hold for loose stool. , Routine 0936 (Given - Provider: Feng Perez RN)2006 (Given - Provider: Carlos Luciano RN) 1143 (Given - Provider: Katya Darling RN)2100 (Not Given - Provider: Carlos Luciano RN - Reason: Patient/family refused) 0857 (Given - Provider: Katya Darling RN) sodium chloride 0.9 % (flush) (BD PosiFlush Normal Saline 0.9) flush 5 mL 5 mL, Intravenous, 2 TIMES DAILY, First dose on 12/10/23 at 1300, Until Discontinued, Routine 0936 (Given - Provider: Feng Perez RN)2006 (Given - Provider: Carlos Luciano RN) 114 (Given - Provider: Katya Darling RN)2011 (Given - Provider: Carlos Luciano RN) 0859 (Given - Provider: Katya Darling RN) PRN Medication Order 12/19/2023 12/20/2023 12/21/2023 acetaminophen (Tylenol) tablet 975 mg 975 mg (rounded from 1,000 mg), Oral, EVERY 6 HOURS PRN, Starting on 12/10/23 at 1238, Until Polina 12/21/23 at 1859, Pain, - Maximum dose of acetaminophen is 4,000 mg from all sources in 24 hours. - Unless otherwise specified, when ordered PRN for pain, acetaminophen should be given first if other PRN pain medications are ordered., Routine 0152 (Given - Provider: Ruby Head RN)0747 (Given - Provider: Feng Perez RN)1643 (Given - Provider: Feng Perez RN) 1726 (Given - Provider: Katya Darling RN) 1126 (Given - Provider: Katya Darling RN) albuteroL (Proventil, Ventolin) (2.5 mg/3 mL) (0.083 %) nebulizer solution 2.5 mg 2.5 mg, Nebulization, EVERY 4 HOURS PRN, Starting on 12/18/23 at 1515, Until Polina 12/21/23 at 1859, Wheezing, Routine bisacodyL (Dulcolax) suppository 10 mg(Linked Group 2) 10 mg, Rectal, DAILY PRN, Starting on 12/10/23 at 1535, Until Polina 12/21/23 at 1859, Constipation, Give if no BM within last 24 hr and rectal fullness is reported or assessed. Give concomitantly with any scheduled bowel medications ordered. , Routine bisacodyL EC (Dulcolax) tablet 10 mg(Linked Group 2) 10 mg, Oral, 2 TIMES DAILY PRN, Starting on 12/10/23 at 1535, Until Polina 12/21/23 at 1859, Constipation, Give if no BM after 24 hr after prior interventions. BM expected in 6-8 hours. If BM desired sooner, use next ordered agent. Give concomitantly with any scheduled bowel medications ordered., Routine dextrose 10% infusion(Linked Group 3) 250 mL, at 1,000 mL/hr, Intravenous, EVERY 15 MIN PRN, Starting on 12/10/23 at 1241, Until Polina 12/21/23 at 1859, For BG 50-70 mg/dL: Oral treatment preferred: If able to drink, give 120 mL juice or regular (not diet) soda OR if NPO, give 15 gram glucose 40% oral gel massaged into buccal mucosa OR if unconscious or uncooperative, give 25 gram (250 mL) dextrose 10% IV over 15 minutes per protocol OR, if no IV access, 1 mg glucagon IM. For BG less than 50 mg/dL: Oral treatment preferred: If able to drink, give 240 mL juice or regular (not diet) soda OR if NPO, give 30 gram glucose 40% oral gel massaged in buccal mucosa OR if unconscious or uncooperative, give 25 gram (250 mL) dextrose 10% IV over 15 minutes per protocol OR, if no IV access, 1 mg glucagon IM. Recheck BG in 15 minutes. May repeat juice/soda, gel, dextrose or glucagon once per episode. Notify provider if hypoglycemia does not resolve after two treatments. Providers should consider the following: administering longer-acting treatments for the duration of active insulin or hypoglycemia agent for persistent hypoglycemia and re-evaluating active insulin orders before administering the next dose. diphenhydrAMINE (Benadryl) capsule 50 mg 50 mg, Oral, NIGHTLY PRN, Starting on Mon12/13/23 at 0245, Until Polina 12/21/23 at 1859, Sleep, Second line for sleep if needed, Routine epoetin sha-epbx (Retacrit) injection 10,000 Units (COMPLETED) 10,000 Units, Intravenous, ONCE IN DIALYSIS PRN, 1 dose, Starting on Mon12/20/23 at 0610, Until Mon12/20/23 at 1021, Other, Dialysis (Intra-Procedure), Routine, What is the indication of use? End Stage Renal Disease (ESRD) on dialysis 1021 (Given - Provider: Alice Rodriguez RN) glucagon (Glucagen) (1 mg/mL) injection solution 1 mg(Linked Group 3) 1 mg, Intramuscular, EVERY 15 MIN PRN, Starting on 12/10/23 at 1241, Until Polina 12/21/23 at 1859, Low blood sugar, For BG 50-70 mg/dL: Oral treatment preferred: If able to drink, give 120 mL juice or regular (not diet) soda OR if NPO, give 15 gram glucose 40% oral gel massaged into buccal mucosa OR if unconscious or uncooperative, give 25 gram (250 mL) dextrose 10% IV over 15 minutes per protocol OR, if no IV access, 1 mg glucagon IM. For BG less than 50 mg/dL: Oral treatment preferred: If able to drink, give 240 mL juice or regular (not diet) soda OR if NPO, give 30 gram glucose 40% oral gel massaged in buccal mucosa OR if unconscious or uncooperative, give 25 gram (250 mL) dextrose 10% IV over 15 minutes per protocol OR, if no IV access, 1 mg glucagon IM. Recheck BG in 15 minutes. May repeat juice/soda, gel, dextrose or glucagon once per episode. Notify provider if hypoglycemia does not resolve after two treatments. Providers should consider the following: administering longer-acting treatments for the duration of active insulin or hypoglycemia agent for persistent hypoglycemia and re-evaluating active insulin orders before administering the next dose. , Routine glucose (Glutose) 40% oral geL(Linked Group 3) 15-30 g of glucose, Buccal, EVERY 15 MIN PRN, Starting on 12/10/23 at 1241, Until Polina 12/21/23 at 1859, Low blood sugar, For BG 50-70 mg/dL: Oral treatment preferred: If able to drink, give 120 mL juice or regular (not diet) soda OR if NPO, give 15 gram glucose 40% oral gel massaged into buccal mucosa OR if unconscious or uncooperative, give 25 gram (250 mL) dextrose 10% IV over 15 minutes per protocol OR, if no IV access, 1 mg glucagon IM. For BG less than 50 mg/dL: Oral treatment preferred: If able to drink, give 240 mL juice or regular (not diet) soda OR if NPO, give 30 gram glucose 40% oral gel massaged in buccal mucosa OR if unconscious or uncooperative, give 25 gram (250 mL) dextrose 10% IV over 15 minutes per protocol OR, if no IV access, 1 mg glucagon IM. Recheck BG in 15 minutes. May repeat juice/soda, gel, dextrose or glucagon once per episode. Notify provider if hypoglycemia does not resolve after two treatments. Providers should consider the following: administering longer-acting treatments for the duration of active insulin or hypoglycemia agent for persistent hypoglycemia and re-evaluating active insulin orders before administering the next dose. 1 tube of Glutose-15 contains 15 grams of glucose (net weight of tube = 37.5 grams.), Routine heparin (porcine) (1,000 units/mL) injection 1,000-10,000 Units (COMPLETED) 1,000-10,000 Units, Intercatheter, ONCE IN DIALYSIS PRN, 1 dose, Starting on 12/20/23 at 0610, Until 12/20/23 at 0842, Line Care, Per Protocol, Catheter lock use catheter specified fill volume per dialysis protocol. For use in Dialysis only. Procedure ID: [id number] (Hemodialysis CVAD Procedure - Care and Maintenance) in Clinical Policies., Dialysis (Intra-Procedure), Routine 0842 (Given - Provider: Alice Rodriguez RN) HYDROmorphone (Dilaudid) tablet 2 mg (CANCELED) 2 mg, Oral, EVERY 8 HOURS PRN, Starting on 12/16/23 at 1600, Until Tu12/19/23 at 1242, Pain, Routine 0406 (Given - Provider: Ruby Head, RN) HYDROmorphone (Dilaudid) tablet 2 mg 2 mg, Oral, 2 TIMES DAILY PRN, Starting on Tu12/19/23 at 1241, Until Polina 12/21/23 at 1859, Pain, Routine 1332 (Given - Provider: Feng Perez, RN)1953 (Given - Provider: Donya Gatica, RN) 0646 (Given - Provider: Carlos Luciano, DELL)1208 (Given - Provider: Katya Darling RN) 0209 (Given - Provider: Carlos Luciano, DELL) lactulose (Chronulac) (0.67 gram/mL) oral liquid 20 g(Linked Group 2) 20 g, Oral, DAILY PRN, Starting on 12/10/23 at 1535, Until Polina 12/21/23 at 1859, Constipation, Give if no BM 24 hr after prior interventions or if BM is desired within 2 hr. Give concomitantly with any scheduled bowel medications ordered, Routine lactulose (Chronulac) (0.67 gram/mL) oral liquid 20 g(Linked Group 2) 20 g, Oral, DAILY PRN, Starting on 12/10/23 at 1535, Until Polina 12/21/23 at 1859, Constipation, Give an additional (2nd) dose of lactulose 2 hr after 1st dose if still no BM. Disregard if 1st dose of lactulose not ordered. Give concomitantly with any scheduled bowel medications ordered. , Routine lidocaine (Xylocaine) 1% (10 mg/mL) injection 3 mg 3 mg (0.3 mL), Subcutaneous, ONCE PRN, 1 dose, Starting on Mon12/10/23 at 1238, Until Polina 12/21/23 at 1859, for discomfort with PIV insertion, Routine magnesium citrate oral liquid 296 mL(Linked Group 2) 296 mL, Oral, ONCE PRN, 1 dose, Starting on Mon12/10/23 at 1535, Until Polina 12/21/23 at 1859, Constipation, Give if no BM 2 hr after previous interventions. If 2 hr after mag citrate there is still no BM, see order for tap water enema, if placed. Give concomitantly with any scheduled bowel medications ordered., Routine ondansetron (pf) (Zofran) (2 mg/mL) injection 4 mg 4 mg, Intravenous, EVERY 8 HOURS PRN, Starting on Mon12/10/23 at 2332, Until Polina 12/21/23 at 1859, Nausea, Vomiting polyethylene glycoL (Miralax) packet 17 g(Linked Group 2) 17 g, Oral, DAILY PRN, Starting on Mon12/10/23 at 1535, Until Polina 12/21/23 at 1859, Constipation, Give if no BM within last 24 hr. Give concomitantly with any scheduled bowel medications ordered. , Routine QUEtiapine (Seroquel) tablet 50 mg (CANCELED) 50 mg, Oral, NIGHTLY PRN, Starting on Mon12/13/23 at 2145, Until Mon12/20/23 at 1007, Agitation, for insomnia, First line for sleep, Routine 2006 (Given - Provider: Carlos Luciano, RN) rOPINIRole (Requip) tablet 0.5 mg 0.5 mg, Oral, NIGHTLY PRN, Starting on Mon12/15/23 at 1251, Until Mon12/21/23 at 1859, if continuing to have restless leg symptoms after scheduled ropinirole, Routine 2005 (Given - Provider: Carlos Luciano, RN) sodium chloride 0.9 % (flush) (BD PosiFlush Normal Saline 0.9) flush 5-20 mL 5-20 mL, Intravenous, EVERY 1 MIN PRN, Starting on Mon12/10/23 at 1238, Until Polina 12/21/23 at 1859, flush, Flush pertains to all indwelling lines. Flush per protocol found in the job aid using the link provided on this medication record., Routine sodium chloride 0.9% infusion 100 mL, Intravenous, EVERY 15 MIN PRN, Starting on Mon12/20/23 at 0610, Until Mon12/21/23 at 1859, If administration of NS boluses will result in positive fluid balance at end of treatment, contact , Dialysis (Intra-Procedure) Linked Groups Order Group 1: POCT Fingerstick Glucose (CANCELED) Routine, 4 TIMES DAILY BEFORE MEALS & AT BEDTIME, First occurrence on Mon12/10/23 at 1700, Until Specified, Consider choosing FOUR TIMES A DAY BEFORE MEALS AND AT BEDTIME as frequency for: Patients who have good hypoglycemia awareness: -Patients who are eating meals during the day and sleeping at night -Patients who are otherwise stable And insulin lispro (HumaLOG;Admelog) (100 unit/mL) subcutaneous injection vial 1-4 UnitsJump to med 1-4 Units, Subcutaneous, 3 TIMES DAILY BEFORE MEALS, First dose on Mon12/10/23 at 1300, Until Discontinued, CORRECTION BOLUS [1-4 Units] Sensitive Sliding Scale (BG in mg/dL): Correction factor 40 (1 unit of insulin is expected to drop the glucose 40 mg/dL) ?? BG 160 - 200 Give 1 unit BG 201 - 240 Give 2 units BG 241 - 280 Give 3 units and recheck BG in 2 hours. BG greater than 280, give 4 units and recheck BG in 2 hours. - If recheck BG is LESS than 280, give no insulin and resume schedule - If recheck BG is GREATER than or EQUAL to 280, give 4 units and repeat BG in 2 hours & call for new insulin orders. DO NOT hold if NPO, unless specifically told to do so. ?? Per Inpatient Subcutaneous Insulin Policy, recheck a BG of greater than 240 mg/dL in 2 hours., Routine Group 2: polyethylene glycoL (Miralax) packet 17 gJump to med 17 g, Oral, DAILY PRN, Starting on Mon12/10/23 at 1535, Until Polina 12/21/23 at 1859, Constipation, Give if no BM within last 24 hr. Give concomitantly with any scheduled bowel medications ordered. , Routine And bisacodyL (Dulcolax) suppository 10 mgJump to med 10 mg, Rectal, DAILY PRN, Starting on Mon12/10/23 at 1535, Until Polina 12/21/23 at 1859, Constipation, Give if no BM within last 24 hr and rectal fullness is reported or assessed. Give concomitantly with any scheduled bowel medications ordered. , Routine And bisacodyL EC (Dulcolax) tablet 10 mgJump to med 10 mg, Oral, 2 TIMES DAILY PRN, Starting on Mon24 at 1535, Until Polina 12/21/23 at 1859, Constipation, Give if no BM after 24 hr after prior interventions. BM expected in 6-8 hours. If BM desired sooner, use next ordered agent. Give concomitantly with any scheduled bowel medications ordered., Routine And lactulose (Chronulac) (0.67 gram/mL) oral liquid 20 gJump to med 20 g, Oral, DAILY PRN, Starting on 12/10/23 at 1535, Until Polina 12/21/23 at 1859, Constipation, Give if no BM 24 hr after prior interventions or if BM is desired within 2 hr. Give concomitantly with any scheduled bowel medications ordered, Routine And lactulose (Chronulac) (0.67 gram/mL) oral liquid 20 gJump to med 20 g, Oral, DAILY PRN, Starting on 12/10/23 at 1535, Until Polina 12/21/23 at 1859, Constipation, Give an additional (2nd) dose of lactulose 2 hr after 1st dose if still no BM. Disregard if 1st dose of lactulose not ordered. Give concomitantly with any scheduled bowel medications ordered. , Routine And magnesium citrate oral liquid 296 mLJump to med 296 mL, Oral, ONCE PRN, 1 dose, Starting on 12/10/23 at 1535, Until Polina 12/21/23 at 1859, Constipation, Give if no BM 2 hr after previous interventions. If 2 hr after mag citrate there is still no BM, see order for tap water enema, if placed. Give concomitantly with any scheduled bowel medications ordered., Routine And Tap water enema (CANCELED) Routine, DAILY PRN, Starting on 12/10/23 at 1535, Until Specified, Give if no BM in at least 24 hr and all other ordered bowel regimen medications have been unsuccessful. Give concomitantly with any scheduled bowel medications ordered. Group 3: glucose (Glutose) 40% oral geLJump to med 15-30 g of glucose, Buccal, EVERY 15 MIN PRN, Starting on 12/10/23 at 1241, Until Polina 12/21/23 at 1859, Low blood sugar, For BG 50-70 mg/dL: Oral treatment preferred: If able to drink, give 120 mL juice or regular (not diet) soda OR if NPO, give 15 gram glucose 40% oral gel massaged into buccal mucosa OR if unconscious or uncooperative, give 25 gram (250 mL) dextrose 10% IV over 15 minutes per protocol OR, if no IV access, 1 mg glucagon IM. For BG less than 50 mg/dL: Oral treatment preferred: If able to drink, give 240 mL juice or regular (not diet) soda OR if NPO, give 30 gram glucose 40% oral gel massaged in buccal mucosa OR if unconscious or uncooperative, give 25 gram (250 mL) dextrose 10% IV over 15 minutes per protocol OR, if no IV access, 1 mg glucagon IM. Recheck BG in 15 minutes. May repeat juice/soda, gel, dextrose or glucagon once per episode. Notify provider if hypoglycemia does not resolve after two treatments. Providers should consider the following: administering longer-acting treatments for the duration of active insulin or hypoglycemia agent for persistent hypoglycemia and re-evaluating active insulin orders before administering the next dose. 1 tube of Glutose-15 contains 15 grams of glucose (net weight of tube = 37.5 grams.), Routine Or dextrose 10% infusionJump to med 250 mL, at 1,000 mL/hr, Intravenous, EVERY 15 MIN PRN, Starting on 12/10/23 at 1241, Until Polina 12/21/23 at 1859, For BG 50-70 mg/dL: Oral treatment preferred: If able to drink, give 120 mL juice or regular (not diet) soda OR if NPO, give 15 gram glucose 40% oral gel massaged into buccal mucosa OR if unconscious or uncooperative, give 25 gram (250 mL) dextrose 10% IV over 15 minutes per protocol OR, if no IV access, 1 mg glucagon IM. For BG less than 50 mg/dL: Oral treatment preferred: If able to drink, give 240 mL juice or regular (not diet) soda OR if NPO, give 30 gram glucose 40% oral gel massaged in buccal mucosa OR if unconscious or uncooperative, give 25 gram (250 mL) dextrose 10% IV over 15 minutes per protocol OR, if no IV access, 1 mg glucagon IM. Recheck BG in 15 minutes. May repeat juice/soda, gel, dextrose or glucagon once per episode. Notify provider if hypoglycemia does not resolve after two treatments. Providers should consider the following: administering longer-acting treatments for the duration of active insulin or hypoglycemia agent for persistent hypoglycemia and re-evaluating active insulin orders before administering the next dose. Or glucagon (Glucagen) (1 mg/mL) injection solution 1 mgJump to med 1 mg, Intramuscular, EVERY 15 MIN PRN, Starting on 12/10/23 at 1241, Until Polina 12/21/23 at 1859, Low blood sugar, For BG 50-70 mg/dL: Oral treatment preferred: If able to drink, give 120 mL juice or regular (not diet) soda OR if NPO, give 15 gram glucose 40% oral gel massaged into buccal mucosa OR if unconscious or uncooperative, give 25 gram (250 mL) dextrose 10% IV over 15 minutes per protocol OR, if no IV access, 1 mg glucagon IM. For BG less than 50 mg/dL: Oral treatment preferred: If able to drink, give 240 mL juice or regular (not diet) soda OR if NPO, give 30 gram glucose 40% oral gel massaged in buccal mucosa OR if unconscious or uncooperative, give 25 gram (250 mL) dextrose 10% IV over 15 minutes per protocol OR, if no IV access, 1 mg glucagon IM. Recheck BG in 15 minutes. May repeat juice/soda, gel, dextrose or glucagon once per episode. Notify provider if hypoglycemia does not resolve after two treatments. Providers should consider the following: administering longer-acting treatments for the duration of active insulin or hypoglycemia agent for persistent hypoglycemia and re-evaluating active insulin orders before administering the next dose. , Routine documented in this encounter Care Teams [employer] Relationship Specialty Start Date End Date Minesh [place] [address] [place] [address] PCP - General Internal Medicine 11/21/23 documented as of this encounter
--- OUTSIDE RECORDS SUMMARY | 2024-01-04 13:08 | XMS_ITS | Encounter Summary ---
Author Organization [facility] Address [facility] [place] [address] Care Team Providers Care Window Shade Cutter Name Role Phone Minesh Wagner Primary Care Provider + Encounter Details Date Type Department Care Team (Late st Contact Info) Description 2023 Interpretation Only Radiology Library at [facility] [address] [place] [address] Social History Tobacco Use Types Packs/Day Years Used Date Smoking Tobacco: Former Cigarettes 1 10 Smokeless Tobacco: Never Alcohol Use Standard Drinks/Week Comments Not Currently 0 (1 standard drink = 0.6 oz pure alcohol) Pt reports I haven't had a beer in months [facility] Utilities Answer Date Recorded In the past 12 months has [employer], gas, oil, or water [employer] threatened to shut off services in your [...] place to sleep or slept in a group home (including now)? No 06/05/2023 Housing Stability Vital [...] time in the past 12 m [facility], were you homeless or living in a group home (including now)? No 12/11/2023 IPV Inpatient Questions [...] AM EST Office Visit Nephrology [place] [phone] Donavon Frey MD [facility] [place] [address] 02/06/2024 1:00 PM EST Office Visit Cardiology at [address] [phone] Adrian Tello MD [facility] [place] [address] 04/25/2024 10:30 AM EST Office Visit Sleep Center at [facility] [address] [place] [phone] Maria De Jesus Lange APRN [facility] [place] [address] documented as of this encounter Procedures Procedure Name Priority Date/Time Associated Diagnosis Comments FILM LIBRARY STORAGE ONLY CT CHEST Routine 2023 2:50 AM EDT documented in this encounter Results * Film Library- Storage Only CT Chest (2023 2:50 AM EDT) 2023 3:56 AM EDT Narrative [facility] - 2023 3:56 AM EDT This exam is auto-finalizing. It's purpose is for storage only. Steven Rdz MD IMG FILM LIBRARY ORD ERABLES [place], [place] documented in this encounter Visit Diagnoses Not on filedocumented in this encounter Care Teams Window Shade Cutter Relationship Specialty Start Date End Date Minesh Wagner [place] [address] [place] [address] PCP - General Internal Medicine 11/21/23 documented as of this encounter
--- OUTSIDE RECORDS SUMMARY | 2024-01-04 13:08 | XMS_ITS | Encounter Summary ---
Author Organization [facility] Address [facility] [place] [address] Care Team Providers Care Shot Peening Operator Name Role Phone Minesh Wagner Primary Care Provider + Encounter Details Date Type Department Care Team (Late st Contact Info) Description 2023 Interpretation Only Radiology Library at [facility] [place] [address] [place] [address] Social History Tobacco Use Types Packs/Day Years Used Date Smoking Tobacco: Former Cigarettes 1 10 Smokeless Tobacco: Never Alcohol Use Standard Drinks/Week Comments Not Currently 0 (1 standard drink = 0.6 oz pure alcohol) Pt reports I haven't had a beer in months [facility] Utilities Answer Date Recorded In the past 12 months has [employer], gas, oil, or water [employer] threatened to shut off services in your [...] place to sleep or slept in a longterm (including now)? No 06/05/2023 Housing Stability Vital Sign Answer Bertram e Recorded In the last 12 months, was t here a time when you were not able to pay the mortgage or rent on time? No 12/11/2023 In the past 12 months, how m any times have you moved where you were living? 0 12/11/2023 At any time in the past 12 m [facility], were you homeless or living in a longterm (including now)? No 12/11/2023 IPV Inpatient Questions [...] AM EST Office Visit [place] [phone] Donavon Frey MD [facility] [place] [address] 02/06/2024 1:00 PM EST Office Visit Cardiology at [address] [phone] Adrian Tello MD [facility] [place] [address] 04/25/2024 10:30 AM EST Office Visit Sleep Center at [facility] [address] [place] [phone] Maria De Jesus Lange APRN [facility] [place] [address] documented as of this encounter Procedures Procedure Name Priority Date/Time Associated Diagnosis Comments FILM LIBRARY STORAGE ONLY DX CHEST Routine 2023 3:56 AM EDT documented in this encounter Results * Film Library- Storage Only DX Chest (2023 3:56 AM EDT) 2023 3:56 AM EDT Narrative [facility] - 2023 3:56 AM EDT This exam is auto-finalizing. It's purpose is for storage only. Steven Rdz MD IMG FILM LIBRARY ORD ERABLES [place], [place] documented in this encounter Visit Diagnoses Not on filedocumented in this encounter Care Teams Shot Peening Operator Relationship Specialty Start Date End Date Minesh Wagner [place] [address] [place] [address] PCP - General Internal Medicine 11/21/23 documented as of this encounter
--- OUTSIDE RECORDS SUMMARY | 2024-01-04 13:08 | XMS_ITS | Encounter Summary ---
Author Organization [facility] Address [facility] [place] [address] Care Team Providers Care Faculty Head Name Role Phone Minesh Wagenr Primary Care Provider + Encounter Details Date Type Department Care Team (Late st Contact Info) Description 2023 2:55 AM EDT Ancillary Procedure Radiology Library at [facility] [place] [address] Steven Rdz MD [facility] [place] [address] Social History Tobacco Use Types Packs/Day Years Used Date Smoking Tobacco: Former Cigarettes 1 10 Smokeless Tobacco: Never Alcohol Use Standard Drinks/Week Comments Not Currently 0 (1 standard drink = 0.6 oz pure alcohol) Pt reports I haven't had a beer in months [facility] Utilities Answer Date Recorded In the past 12 months has [employer], gas, oil, or water [employer] threatened to shut off services in your [...] place to sleep or slept in a detention (including now)? No 06/05/2023 Housing Stability Vital Sign Answer Bertram e Recorded In the last 12 months, was t here a time when you were not able to pay the mortgage or rent on time? No 12/11/2023 In the past 12 months, how m any times have you moved where you were living? 0 12/11/2023 At any time in the past 12 m [facility], were you homeless or living in a detention (including now)? No 12/11/2023 IPV Inpatient Questions [...] AM EST Office Visit [place] [phone] Donavon Frey MD [facility] [place] [address] 02/06/2024 1:00 PM EST Office Visit Cardiology at [address] [phone] Adrian Tello MD [facility] [place] [address] 04/25/2024 10:30 AM EST Office Visit Sleep Center at [facility] [address] [place] [phone] Maria De Jesus Lange APRN [facility] [place] [place] [address] documented as of this encounter Procedures Procedure Name Priority Date/Time Associated Diagnosis Comments FILM LIBRARY STORAGE ONLY CT ABDOMEN AND PELVIS Routine 2023 2:55 AM EDT documented in this encounter Results * Film Library- Storage Only CT Abdomen & Pelvis (2023 2:55 AM EDT) 2023 3:56 AM EDT Narrative [facility] - 2023 3:56 AM EDT This exam is auto-finalizing. It's purpose is for storage only. Steven Rdz MD IMG FILM LIBRARY ORD ERABLES [place], [place] documented in this encounter Visit Diagnoses Not on filedocumented in this encounter Care Teams Faculty Head Relationship Specialty Start Date End Date Minesh [place] [address] [place] [address] PCP - General Internal Medicine 11/21/23 documented as of this encounter
--- OUTSIDE RECORDS SUMMARY | 2024-01-04 13:08 | XMS_ITS | Encounter Summary ---
Author Organization [facility] Address [facility] [place] [address] Care Team Providers Care Marine Water Tender Name Role Phone Minesh Wagner Primary Care Provider + Encounter Details Date Type Department Care Team (Late st Contact Info) Description 2023 2:50 AM EDT Ancillary Procedure Radiology Library at [facility] [place] [address] Steven Rdz MD [facility] [place] [address] Social History Tobacco Use Types Packs/Day Years Used Date Smoking Tobacco: Former Cigarettes 1 10 Smokeless Tobacco: Never Alcohol Use Standard Drinks/Week Comments Not Currently 0 (1 standard drink = 0.6 oz pure alcohol) Pt reports I haven't had a beer in months [facility] Utilities Answer Date Recorded In the past 12 months has [employer], gas, oil, or water [employer] threatened to shut off services in your [...] place to sleep or slept in a nursing home (including now)? No 06/05/2023 Housing Stability [...] any time in the past 12 m [facility], were you homeless or living in a nursing home (including now)? No 12/11/2023 IPV Inpatient [...] AM EST Office Visit Neph[place] [phone] Donavon Frey MD [facility] [place] [address] 02/06/2024 1:00 PM EST Office Visit Cardiology at [address] [phone] Adrian Tello MD [facility] [place] [address] 04/25/2024 10:30 AM EST Office Visit Sleep Center at [facility] [address] [place] [address] Maria De Jesus Lange APRN [facility] [place] [address] documented as of this encounter Procedures Procedure Name Priority Date/Time Associated Diagnosis Comments FILM LIBRARY STORAGE ONLY CT CHEST Routine 2023 2:50 AM EDT documented in this encounter Results * Film Library- Storage Only CT Chest (2023 2:50 AM EDT) 2023 3:56 AM EDT Narrative [facility] - 2023 3:56 AM EDT This exam is auto-finalizing. It's purpose is for storage only. Steven Rdz MD IMG FILM LIBRARY ORD ERABLES [address], [place] documented in this encounter Visit Diagnoses Not on filedocumented in this encounter Care Teams Marine Water Tender Relationship Specialty Start Date End Date Minesh [place] [address] [address] [place] [address] PCP - General Internal Medicine 11/21/23 documented as of this encounter
--- OUTSIDE RECORDS SUMMARY | 2024-01-04 13:08 | XMS_ITS | Encounter Summary ---
Author Organization [facility] Address [facility] [place] [address] Care Team Providers Care Management Architect Name Role Phone Minesh Wagner Primary Care Provider + Encounter Details Date Type Department Care Team (Late st Contact Info) Description 2023 Interpretation Only Radiology Library at [facility] [place] [address] [place] [address] Social History Tobacco Use Types Packs/Day Years Used Date Smoking Tobacco: Former Cigarettes 1 10 Smokeless Tobacco: Never Alcohol Use Standard Drinks/Week Comments Not Currently 0 (1 standard drink = 0.6 oz pure alcohol) Pt reports I haven't had a beer in months [facility] Utilities Answer Date Recorded In the past 12 months has [employer], gas, oil, or water [employer] threatened to shut off services in your [...] place to sleep or slept in a fci (including now)? No 06/05/2023 Housing Stability Vital Sign Answer Bertram e Recorded In the last 12 months, was t here a time when you were not able to pay the mortgage or rent on time? No 12/11/2023 In the past 12 months, how m any times have you moved where you were living? 0 12/11/2023 At any time in the past 12 m [facility], were you homeless or living in a fci (including now)? No 12/11/2023 IPV Inpatient Questions [...] AM EST Office Visit [place] [phone] Donavon Frey MD [facility] [place] [address] 02/06/2024 1:00 PM EST Office Visit Cardiology at [address] [phone] Adrian Tello MD [facility] [place] [address] 04/25/2024 10:30 AM EST Office Visit Sleep Center at [facility] [address] [place] [phone] Maria De Jesus Lange APRN [facility] [place] [address] documented as of this encounter Procedures Procedure Name Priority Date/Time Associated Diagnosis Comments FILM LIBRARY STORAGE ONLY CT ABDOMEN AND PELVIS Routine 2023 2:55 AM EDT documented in this encounter Results * Film Library- Storage Only CT Abdomen & Pelvis (2023 2:55 AM EDT) 2023 3:56 AM EDT Narrative [facility] - 2023 3:56 AM EDT This exam is auto-finalizing. It's purpose is for storage only. Steven Rdz MD IMG FILM LIBRARY ORD ERABLES [place], [place] documented in this encounter Visit Diagnoses Not on filedocumented in this encounter Care Teams Management Architect Relationship Specialty Start Date End Date Minesh [place] [address] [address] [place] [address] PCP - General Internal Medicine 11/21/23 documented as of this encounter
--- OUTSIDE RECORDS SUMMARY | 2024-01-04 13:08 | XMS_ITS | Encounter Summary ---
Author Organization [facility] Address [facility] [place] [address] Care Team Providers Care Manager Cancer Name Role Phone Minesh Wagner Primary Care Provider + Encounter Details Date Type Department Care Team (Late st Contact Info) Description 2023 4:00 AM EDT Ancillary Procedure Radiology Library at [facility] [place] [address] Steven Rdz MD [facility] [place] [place] [address] Social History Tobacco Use Types Packs/Day Years Used Date Smoking Tobacco: Former Cigarettes 1 10 Smokeless Tobacco: Never Alcohol Use Standard Drinks/Week Comments Not Currently 0 (1 standard drink = 0.6 oz pure alcohol) Pt reports I haven't had a beer in months [facility] Utilities Answer Date Recorded In the past 12 months has [employer], gas, oil, or water [employer] threatened to shut off services in your [...] any time in the past 12 m [facility], were you homeless or living in [...] AM EST Office Visit [place] [phone] Donavon Frey MD [facility] [place] [address] 02/06/2024 1:00 PM EST Office Visit Cardiology at [address] [phone] Adrian Tello MD [facility] [place] [address] 04/25/2024 10:30 AM EST Office Visit Sleep Center at [facility] [address] [place] [address] Maria De Jesus Lange, RAMONA [facility] [place] [address] documented as of this encounter Procedures Procedure Name Priority Date/Time Associated Diagnosis Comments FILM LIBRARY STORAGE ONLY DX CHEST Routine 2023 3:56 AM EDT documented in this encounter Results * Film Library- Storage Only DX Chest (2023 3:56 AM EDT) 2023 3:56 AM EDT Narrative [facility] - 2023 3:56 AM EDT This exam is auto-finalizing. It's purpose is for storage only. Steven Rdz MD IMG FILM LIBRARY ORD ERABLES [place], [place] documented in this encounter Visit Diagnoses Not on filedocumented in this encounter Care Teams Manager Cancer Relationship Specialty Start Date End Date Minesh [place] [address] [place] [address] PCP - General Internal Medicine 11/21/23 documented as of this encounter
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
--- OUTSIDE RECORDS SUMMARY | 2024-01-04 13:09 | XMS_ITS | Encounter Summary ---
[place] [address] Care Team Providers Care Ice House Supervisor Name Role Phone Minesh Wagner Primary Care Provider + Encounter Details Date Type Department Care Team (Latest Contact Info) Description 11/27/2023 6:45 AM EDT Laboratory Appointment Lab [address] [place] [phone] DONAL (acute kidney injury); Stage 3b chronic kidney disease; Hyperphosphatemia Social History Tobacco Use Types Packs/Day Years Used Date Smoking Tobacco: Former Cigarettes 1 10 Smokeless Tobacco: Never Alcohol Use Standard Drinks/Week Comments Not Currently 0 (1 standard drink = 0.6 oz pure alcohol) Pt reports I haven't had a beer in months [facility] Utilities Answer Date Recorded In the past 12 months has [employer], gas, oil, or water [employer] threatened to shut off services in your [...] place to sleep or slept in a long term (including now)? No 06/05/2023 Housing Stability Vital Sign Answer Bertram e Recorded In the last 12 months, was t here a time when you were not able to pay the mortgage or rent on time? No 11/01/2023 In the past 12 months, how m any times have you moved where you were living? 0 11/01/2023 At any time in the past 12 m [facility], were you homeless or living in a long term (including now)? No 11/01/2023 IPV Inpatient Questions [...] AM EST Office Visit Neph[place] [phone] Donavon Frey MD [facility] [place] [address] 02/06/2024 1:00 PM EST Office Visit Cardiology at [address] [phone] Adrian Tello MD [facility] [place] [address] 04/25/2024 10:30 AM EST Office Visit Sleep Center at [facility] [address] [place] [phone] Maria De Jesus Lange APRN [facility] [place] [address] documented as of this encounter Procedures Procedure Name Priority Date/Time Associated Diagnosis Comments PROTEIN/CREATININE RATIO, URINE Routine 11/27/2023 8:00 AM EDT DONAL (acute kidney injury) Stage 3b chronic kidney disease U ALBUMIN/CRE RATIO Routine 11/27/2023 8 :00 AM EDT DONAL (acute kidney injury) Stage 3b chronic kidney disease PTH Routine 11/27/2023 7:56 AM EDT DONAL (acute kidney injury) Stage 3b chronic kidney disease VITAMIN D, 25-HYDROXY Routine 11/27/2023 7:56 AM EDT DONAL (acute kidney injury) Stage 3b chronic kidney disease CBC (WITH DIFF) Routine 11/27/2023 7:56 AM EDT DONAL (acute kidney injury) Stage 3b chronic kidney disease PHOSPHORUS Add-On 11/27/2023 7:56 AM EDT Hyperphosphatemia ALBUMIN LEVEL Routine 11/27/2023 7:56 AM EDT DONAL (acute kidney injury) Stage 3b chronic kidney disease BASIC METABOLIC PANEL Routine 11/27/2023 7:56 AM EDT DONAL (acute kidney injury) Stage 3b chronic kidney disease documented in this encounter Results * (ABNORMAL) Protein/Creatinine Ratio, urine (11/27/2023 8:00 AM EDT) Protein, Urine 202(H) 0 - 12 mg/dL 11/27/2023 9:07 AM EDT [facility] Creatinine, Urine 80 mg/dL 11/27/2023 9:07 AM EDT [facility] Protein / Creatinine Ratio, Urine 2.5 ratio 11/27/2023 9:07 AM EDT [facility] Urine URINE SPECIMEN / Unknown Non Blood Collection / Unknown 11/27/2023 8:00 AM EDT 11/27/2023 8:00 AM EDT Donavon Frey MD URINE ORDERABLES [facility] [place] [address] * (ABNORMAL) U Albumin/Cre Ratio (11/27/2023 8:00 AM EDT) Albumin, Urine 1,182.0 mg/L 11/27/2023 9:07 AM EDT [facility] Creatinine, Urine 80 mg/dL 024 9:07 AM [facility] Albumin / Creatinine Ratio, Urine 1,478(H) 0 - 29 mcg/mg Cr 11/27/2023 9:07 AM EDT [facility] Comment: Reference Ranges: ?? <30 [...] AM EDT Donavon Frey MD URINE ORDERABLES [facility] [place] [address] * Phosphorus (11/27/2023 7:56 AM EDT) Phosphorus 3.3 2.5 - 4.5 mg/dL 11/27/2023 9:18 AM EDT [facility] Blood VENOUS BLOOD SPECIMEN / Unknown Venipuncture / Unknown 11/27/2023 7:56 AM EDT 11/27/2023 7:56 AM EDT Donavon Frey MD CHEMISTRY ORDERABLES Performing Organization Address City/[facility]/ZIP Co de Phone Number [facility] [place] [address] * (ABNORMAL) Vitamin D, 25-Hydroxy (11/27/2023 7:56 AM EDT) Vitamin D Total 25 OH 13(L) 21 - 100 ng/ml 11/27/2023 9:08 AM EDT [facility] Vitamin D Total 25 OH Interp Deficient 11/27/2023 9:08 AM EDT [facility] Blood VENOUS BLOOD SPECIMEN / Unknown Venipuncture / Unknown 11/27/2023 7:56 AM EDT 11/27/2023 7:56 AM EDT Donavon Frey MD CHEMISTRY ORDERABLES [facility] [place] [address] * PTH (11/27/2023 7:56 AM EDT) Parathyroid Hormone 63 15 - 65 pg/mL 11/27/2023 8:52 AM EDT [facility] Blood VENOUS BLOOD SPECIMEN / Unknown Venipuncture / Unknown 11/27/2023 7:56 AM EDT 11/27/2023 7:56 AM EDT Donavon Frey MD CHEMISTRY ORDERABLES [facility] [place] [address] * (ABNORMAL) CBC (with Diff) (11/27/2023 7:56 AM EDT) White Blood Cell 7.01 4.00 - 9.50 x10(3)/mc L 11/27/2023 8:19 AM EDT [facility] Red Blood Cell 4.32(L) 4.58 - 5.54 x10(6)/mc L 11/27/2023 8:19 AM EDT [facility] Hemoglobin 9.4(L) 13.7 - 16.5 g/dL 11/27[facility]2023 8:[facility] Hematocrit 32.1(L) 40.5 - 48.5 % 11/27/2023 8:19 AM EDT [facility] Mean Cell Volume 74.3(L) 82.9 - 93.1 fL 11/27/2023 8:19 AM [facility] Mean Cell Hemoglobin 21.8(L) 27.5 - 32.1 pg 11/27/2023 8:19 AM [facility] Mean Cell Hemoglobin Concentration 29.3(L) 32.0 - 35.7 g/dL 11/27/2023 8:[facility] Platelet 430(H) 145 - 357 x10(3)/mc L 11/27/2023 8:[facility] Mean Platelet Volume 10.2 7.6 - 12.9 fL 11/27/2023 8:19 AM [facility] RDW Standard Deviation 60.0(H) 36.0 - 45.0 fL 11/27/2023 8:19 [facility] RDW coefficient of variation 22.6(H) 11.4 - 13.8 % 11/27/2023 8:19 AM [facility] NRBC% auto 0.0 % 11/27/2023 8:19 AM [facility] NRBC Absolute <0.01 <0.01 x10(3)/mc L 11/27/2023 8:19 AM [facility] Neutrophil % 63.1 % 11/27/2023 8:19 AM [facility] Neutrophil Absolute (ANC) - Automated 4.42 1.70 - 6.10 x10(3)/mc L 11/27/2023 8:19 AM [facility] Lymph % 22.5 % 11/27/2023 8:19 AM [facility] Lymph Absolute 1.58 0.90 - 3.20 x10(3)/mc L 11/27/2023 8:19 AM [facility] Monocyte % 8.7 % 11/27/2023 8:19 AM [facility] Monocyte Absolute 0.61 0.30 - 0.90 x10(3)/mc L 11/27/2023 8:19 AM [facility] Eos % 4.0 % 11/27/2023 8:19 AM [facility] Eos Absolute 0.28 0.00 - 0.40 x10(3)/mc L 11/27/2023 8:19 AM [facility] Basophil % 1.1 % 11/27/2023 8:19 AM [facility] Baso Absolute 0.08 0.00 - 0.10 x10(3)/mc L 11/27/2023 8:19 AM [facility] Immature Gran % 0.6 % 8:19 AM [facility] Immature Gran Absolute 0.04 0.00 - 0.04 x10(3)/mc L 11/27/2023 8:19 AM EDT [facility] Blood VENOUS BLOOD SPECIMEN / Unknown Venipuncture / Unknown 11/27/2023 7:56 AM EDT 11/27/2023 7:56 AM EDT Donavon Frey MD HEMATOLOGY ORDERABLE S Performing Organization Address [facility] Co de Phone Number [facility] [place] [address] * Albumin Level (11/27/2023 7:56 AM EDT) Albumin 3.5 3.2 - 5.2 g/dL 11/27/2023 8:58 AM EDT [facility] Blood VENOUS BLOOD SPECIMEN / Unknown Venipuncture / Unknown 11/27/2023 7:56 AM EDT 11/27/2023 7:56 AM EDT Donavon Frey MD CHEMISTRY ORDERABLES Performing Organization Address City/[facility]/ZIP Co de Phone Number [facility] [place] [address] * (ABNORMAL) Basic Metabolic Panel Non-fasting (11/27/2023 7:56 AM EDT) Glucose 132 65 - 199 mg/dL 11/27/2023 8:58 AM EDT [facility] Comment:Glucose Concentratio n >=200 mg/dL plus symptoms is consistent with Diabetes Mellitus. Blood Urea Nitrogen 63(H) 10 - 20 mg/dL 11/27/2023 8:58 AM EDT [facility] Creatinine 3.23(H) 0.80 - 1.50 mg/dL 11/27/2023 8:58 AM EDT [facility] Sodium 139 135 - 145 mMol/L 11/27/2023 8:58 AM EDT [facility] Potassium 5.6(H) 3.5 - 5.0 mMol/L 11/27/2023 8:58 AM EDT [facility] Chloride 108(H) 98 - 107 mMol/L 11/27/2023 8:58 AM EDT [facility] Carbon Dioxide 21(L) 22 - 31 mMol/L 11/27/2023 8:58 AM EDT [facility] Anion Gap 10 5 - 15 mMol/L 11/27/2023 8:58 AM EDT [facility] Calcium 8.8 8.5 - 10.5 mg/dL 11/27/2023 8:58 AM EDT [facility] Est Glomerular Filtration Rate - Male 23 mL/min/1. 73 m?? 11/27/2023 8:58 AM [facility] Comment: This patient's estimated GFR [...] eGFR. Link: eGFR Calculator [employer] Fasting Status No 11/27/2023 8:58 AM T [facility] Blood VENOUS BLOOD SPECIMEN / Unknown Venipuncture / Unknown 11/27/2023 7:56 AM EDT 11/27/2023 7:56 AM EDT Donavon Frey MD CHEMISTRY ORDERABLES Performing Organization Address City/State/[facility] Co de Phone Number [facility] [place] [phone] documented in this encounter Visit Diagnoses Diagnosis DONAL (acute kidney injury) Acute kidney failure, unspecified Stage 3b chronic kidney disease Hyperphosphatemia Disorders of phosphorus metabolism documented in this encounter Care Teams Ice House Supervisor Relationship Specialty Start Date End Date Minesh [place] [address] PCP - General Internal Medicine 11/21/23 documented as of this encounter
--- OUTSIDE RECORDS SUMMARY | 2024-01-04 13:09 | XMS_ITS | Encounter Summary ---
[place] [address] Care Team Providers Care Teaching Artist Name Role Phone Minesh Wagner Primary Care Provider + Encounter Details Date Type Department Care Team ([facility] st Contact Info) Description 11/28/2023 Telephone [place] [phone] Roslyn Garza, DELL Social History Tobacco Use Types Packs/Day Years Used Date Smoking Tobacco: Former Cigarettes 1 10 Smokeless Tobacco: Never Alcohol Use Standard Drinks/Week Comments Not Currently 0 (1 standard drink = 0.6 oz pure alcohol) Pt reports I haven't had a beer in months [facility] Utilities Answer Date Recorded In the past 12 months has [employer], gas, oil, or water [employer] threatened to shut off services in your [...] any time in the past 12 m onths, were you homeless or living in a detention (including now)? No 11/01/2023 IPV Inpatient Questions [...] encounter Miscellaneous Notes * Telephone Encounter - Roslyn Garza RN - 11/28/2023 1:52 PM EDTSummary: prior authoization-venofer RN spoke to Adela from [facility], to initiate PA. Prior authorization for Venofer will have a turn around time of 5 business days. Reference number [id number]. [facility]: [phone] documented in this encounter Plan of Treatment Upcoming Encounters Date Type Department Care Team (Late st Contact Info) Description 01/31/2024 9:30 AM EST Office Visit [place] [address] Donavon Frey MD [facility] [place] [address] 02/06/2024 1:00 PM EST Office Visit Cardiology at [address] [phone] Adrian Tello MD [facility] [place] [address] 04/25/2024 10:30 AM EST Office Visit Sleep Center at [address] [phone] Maria De Jesus Lange APRN [facility] [place] [address] documented as of this encounter Visit Diagnoses Not on filedocumented in this encounter Care Teams Teaching Artist Relationship Specialty Start Date End Date [place]ines[place] [address] PCP - General Internal Medicine 11/21/23 documented as of this encounter
--- OUTSIDE RECORDS SUMMARY | 2024-01-04 13:09 | XMS_ITS | Encounter Summary ---
Author Organization [facility] [place] [address] Care Team Providers Care Mannequin Sander And Finisher Name Role Phone Minesh Wagner Primary Care Provider + Encounter Details Date Type Department Care Team (Late st Contact Info) Description 12/01/2023 Orders Only Nephrology [place] [address] Donavon Frey MD [facility] [place] [address] Hyperkalemia Social History Tobacco Use Types Packs/Day Years Used Date Smoking Tobacco: Former Cigarettes 1 10 Smokeless Tobacco: Never Alcohol Use Standard Drinks/Week Comments Not Currently 0 (1 standard drink = 0.6 oz pure alcohol) Pt reports I haven't had a beer in months [facility] Utilities Answer Date Recorded In the past 12 months has [employer], gas, oil, or water company threatened [...] place to sleep or slept in a half-way (including now)? No 06/05/2023 Housing Stability Vital Sign Answer Bertram e Recorded In the last 12 months, was t here a time when you were not able to pay the mortgage or rent on time? No 11/01/2023 In the past 12 months, how m any times have you moved where you were living? 0 11/01/2023 At any time in the past 12 m [facility], were you homeless or living in a half-way (including now)? No 11/01/2023 IPV Inpatient Questions [...] AM EST Office Visit Nephrology [place] [address] Donavon Frey MD [facility] [place] [address] 02/06/2024 1:00 PM EST Office Visit Cardiology at [address] [phone] Adrian Tello MD [facility] [place] [address] 04/25/2024 10:30 AM EST Office Visit Sleep Center at [facility] [address] [place] [address] Maria De Jesus Lange APRN [facility] [place] [address] Scheduled Orders Name Type Priority Associated Diagnoses Orde r Schedule Basic Metabolic Panel Non-fasting Lab Routine Hyperkalemia Expected: 12/01/2023 (Approximate), Expires: 11/30/2024 documented as of this encounter Visit Diagnoses Diagnosis Hyperkalemia Hyperpotassemia documented in this encounter Care Teams Mannequin Sander And Finisher Relationship Specialty Start Date End Date Minesh Wagner PA [facility] [place] [address] PCP - General Internal Medicine 11/21/23 documented as of this encounter
--- OUTSIDE RECORDS SUMMARY | 2024-01-04 13:09 | XMS_ITS | Encounter Summary ---
[place] [address] Care Team Providers Care Journeyman Carpenter Name Role Phone Minesh Wagnre Primary Care Provider + Encounter Details Date Type Department Care Team ([facility] st Contact Info) Description 12/06/2023 Telephone Ne[place] [phone] Roslyn Garza, DELL Social History Tobacco Use Types Packs/Day Years Used Date Smoking Tobacco: Former Cigarettes 1 10 Smokeless Tobacco: Never Alcohol Use Standard Drinks/Week Comments Not Currently 0 (1 standard drink = 0.6 oz pure alcohol) Pt reports I haven't had a beer in months [facility] Utilities Answer Date Recorded In the past 12 months has [employer], gas, oil, or water [employer] threatened to shut off services in your [...] place to sleep or slept in a usp (including now)? No 06/05/2023 Housing Stability Vital [...] were you homeless or living in a usp (including now)? No 11/01/2023 IPV Inpatient Questions [...] Telephone Encounter - Roslyn Garza RN - 12/06/2023 4:24 PM EDTSummary: Prior Authorization-venofer Medication Prior Authorization Medication name/dose/directions: Venofer 300mg in 50mL NS IV over one and one half hours. Repeat weekly for a total of three doses. Patient requesting infusion at [facility]. Insurance approved. Rationale for request: D50.9, D63.1, N18.4 Health plan: [employer] secondary to [place] [employer] Authorizing apparel trimmings sales representative name:Adela Phone number for apparel trimmings sales representative:[phone] Fax number for apparel trimmings sales representative: Faxed to health plan on: 11/28/2023 Health plan decision: APPROVED Quantity approved: 3 Authorization number: [id number] Start date:11/28/2023End date:05/26/2024 Patient notified? Param to notify when scheduling Pharmacy notified? documented in this encounter Plan of Treatment Upcoming Encounters Date Type Department Care Team (Late st Contact Info) Description 01/31/2024 9:30 AM EST Office Visit [place] [address] Donavon Frey MD [facility] [place] [address] 02/06/2024 1:00 PM EST Office Visit Cardiology at [address] [phone] Adrian Tello MD [facility] [place] [address] 04/25/2024 10:30 AM EST Office Visit Sleep Center at [address] [phone] Maria De Jesus Lange APRN [facility] [place] [address] documented as of this encounter Visit Diagnoses Not on filedocumented in this encounter Care Teams Journeyman Carpenter Relationship Specialty Start Date End Date Minesh Wagner PA [facility] [place] [address] PCP - General Internal Medicine 11/21/23 documented as of this encounter
--- OUTSIDE RECORDS SUMMARY | 2024-01-04 13:09 | XMS_ITS | Encounter Summary ---
Author Organization [facility] [place] [address] Care Team Providers Care Lean Leader Name Role Phone Minesh Wagner Primary Care Provider + Reason for Referral * Consultation (Routine) - Authorized Specialty Diagnoses / Procedures Referred By Martha vasquez Referred To Contact Sleep Center Diagnoses Suspected sleep apnea Donavon Frey MD [facility] [place] [address] [facility] Sleep Medicine [address] [place] [address] Referral ID Status Reason Start Date Expiration Date Visits Requested Visits Authorized [id number] Authorized Specialty Service Requested 11/27/2023 11/26/2024 1 1 Reason for Visit * Consultation (Routine) - Closed Specialty Diagnoses / Procedures Referred By Martha vasquez Referred To Contact Nephrology Diagnoses Disorder of kidney and ureter, unspecified Minesh Wagner PA [address] [place] [address] [place] [address] [facility] [address] [place] [phone] Referral ID Status Reason Start Date Expiration Date V isits Requested Visits Authorized [id number] Closed Consult, Test & Treat PCP Updated and/or Approved 07/27/2023 01/26/2024 6 6 Encounter Details Date Type Department Care Team (Latest Contact Info) Description 11/27/2023 8:00 AM EDT Office Visit Nephrology Hypertension at [facility] [place] [address] Donavon Frey MD [facility] [place] [address] DONAL (acute kidney injury); Stage 3b chronic kidney disease; Anemia due to stage 3b chronic kidney disease; Hyperphosphatemia; Suspected sleep apnea Social History Tobacco Use Types Packs/Day Years Used Date Smoking Tobacco: Former Cigarettes 1 10 Smokeless Tobacco: Never Alcohol Use Standard Drinks/Week Comments Not Currently 0 (1 standard drink = 0.6 oz pure alcohol) Pt reports I haven't had a beer in months [facility] Utilities Answer Date Recorded In the past 12 months has th e [employer], gas, oil, or water [employer] threatened to shut off services in your [...] in a half-way (including now)? No 11/01/2023 DH IPV Inpatient Questions Answer Date Recorded [...] Sign Reading Time Taken Comments Blood Pressure 143/60 11/27/2023 8:16 AM EDT Pulse 66 11/27/2023 8:16 AM EDT Temperature - - Respiratory Rate - - Oxygen Saturation - - Inhaled Oxygen Concentration - - Weight 125.2 kg (276 lb) 11/27/2023 8:16 AM EDT Height 177.8 cm (5' 10) 11/27/2023 8:16 AM EDT Body Mass Index 39.6 11/27/2023 8:16 AM EDT documented in this encounter Patient Instructions * Patient Instructions* Donavon Frey MD - 11/27/2023 8:00 AM EDT Reach out to Cardiac surgery regarding your sutures. Please reach out to Cardiology for follow up. Please make sure that you are on carvedilol, if you are not on it please reach out to cardiology. documented in this encounter Progress Notes * Donavon Frey MD - 11/27/2023 8:00 AM EDT All parties consented to the use of JANAE to document this visit. History of Present Illness The patient is a 47-year-old gentleman with a history of coronary artery disease, diabetes mellitustype 2, and a history of ST elevation UT in 2019, status post PCI, RCA stent which got reoccluded in 05/2023. He is here for a follow-up after his recent hospital stay. He was admitted on 10/30/2023 with ACS status post CABG, presenting with hypotension and volume overload. During his hospital stay, he was on CVVH due to acute kidney injury. His preoperative creatinine was around 2.9, and his baseline creatinine is around 2.8. Since returning home, he has been adjusting to his new routine, which includes physical therapy at home and visits from hospice and home health. He has stopped using a walker and is now mobile. His blood pressure has been stable, with a recent reading of 140/80. He is taking pantoprazole daily for acid reflux and losartan 100 mg once a day. He is also on iron tablets and sevelamer, taken three times a day with meals. He reports that his chest pain has lessened, now presenting as a dull ache. He is unsure if he is taking metoprolol but believes he is still on a higher dose of carvedilol. He is not currently taking vitamin D. He reports some swelling in his legs and feet but is breathing fine. He is currently on Farxiga andpreviously took Trulicity, which resulted in pancreatitis. He has not been tested for sleep apnea but does snore. There were no vitals taken for this visit. Physical Exam Chest clear. CVS S1-S2 present Bilateral edema noted more on the right side. Results Laboratory Studies Hemoglobin is 9.4. Potassium is 5.6. Creatinine is 3.23. Estimated glomerular filtration rate is 23. Calcium is 8.8. Vitamin D is 13. Assessment & Plan 1. Chronic Kidney Disease Stage IV. His estimated glomerular filtration rate is 23, indicating stage IV kidney disease. Potassium levels are slightly elevated at 5.6, and creatinine remains at 3.23. He is advised to adhere to a low salt diet and continue exercising. If iron levels are found to be low, our nurse will arrange for an iron infusion. On Statin On Farxiga On Losartan. # Hyperkalemia -Secondary renal dysfunction and being on ARB. --He is volume overloaded, will increase his torsemide. 2. Diabetes Mellitus Type 2. He is currently on Farxiga and will continue this medication. He is advised to maintain good hygiene in the genital area to prevent potential infections. 3. BMM- Hypovitaminosis D- started on Vitamin D3 - 5000 units daily. Calcium and PTH within normal limits Phosphorus within normal limits. Sevelamer will be discontinued . 4. Anemia.-Hypochromic microcytic with elevated RDW. Has mild thrombocytosis. His hemoglobin is low at 9.4, likely due to chronic kidney disease. He is advised to continue taking iron tablets. He will benefit with IV Venofer that his iron levels are low. 5. Hypertension. He is currently taking losartan 100 mg once daily. The dosage will be adjusted to 50 mg twice daily. He is advised to monitor his blood pressure regularly and keep a log of the readings. 6. GERD. He is currently taking pantoprazole daily for acid reflux. He is advised to take it as needed unless he has a history of GI bleeding, due to the effect of PPI on renal function. 7. Vitamin D Deficiency. His vitamin D level is very low at 13. He is advised to take 5000 units of vitamin D daily. 8. Suspected sleep Apnea. He reports symptoms suggestive of sleep apnea, including snoring and episodes of stopped breathing during sleep. A referral for sleep apnea testing will be made. He is not a candidate for GLP-1 RA due to prior pancreatitis with Trulicity. Plan: Change losartan 50 twice daily Advised him to take pantoprazole only as needed. Increase torsemide to 40 mg daily. Referral to sleep medicine. Will set him up for IV Venofer due to iron deficiency and low hemoglobin. Advised him to reach out to cardiac surgery for taking out the sutures. Advised him to follow-up with cardiology, and advised him to continue beta- blockers if he is not already on it. Follow-up Return in 4 to 6 weeks for follow-up. A total of 40 minutes was spent for reviewing chart, [id number] encounter, ordering labs/medication,documentation in the chart, and coordinating care. documented in this encounter Plan of Treatment Upcoming Encounters Date Type Department Care Team (Late st Contact Info) Description 01/31/2024 9:30 AM EST Office Visit Neph[place] [phone] Donavon Frey MD [facility] [place] [address] 02/06/2024 1:00 PM EST Office Visit Cardiology at [address] [phone] Adrian Tello MD [facility] [place] [address] 04/25/2024 10:30 AM EST Office Visit Sleep Center at [address] [phone] Maria De Jesus Lange APRN [facility] [address] Scheduled Orders Name Type Priority Associated Diagnoses Orde r Schedule Basic Metabolic Panel Non-fasting Lab Routine DONAL (acute kidney injury) Stage 3b chronic kidney disease Anemia due to stage 3b chronic kidney disease Hyperphosphatemia Suspected sleep apnea Expected: 12/28/2023 (Approximate), Expires: 11/26/2024 Albumin Level Lab Routine DONAL (acute kidney injury) Stage 3b chronic kidney disease Anemia due to stage 3b chronic kidney disease Hyperphosphatemia Suspected sleep apnea Expected: 12/28/2023 (Approximate), Expires: 11/26/2024 CBC (with Diff) Lab Routine DONAL (acute kidney injury) Stage 3b chronic kidney disease Anemia due to stage 3b chronic kidney disease Hyperphosphatemia Suspected sleep apnea Expected: 12/28/2023 (Approximate), Expires: 11/26/2024 Scheduled Referrals Name Type Priority Associated Diagnoses Orde r Schedule Referral to Sleep Disorders Center Outpatient Referral Routine Suspected sleep apnea Ordered: 11/27/2023 documented as of this encounter Procedures Procedure Name Priority Date/Time Associated Diagnosis Comments ORDS - PROVIDER CARE SCAN 12/06/2023 12:00 AM EDT IRON AND TIBC Add-On 11/27/2023 7:56 AM EDT Anemia due to stage 3b chronic kidney disease FERRITIN Add-On 11/27/2023 7:56 AM EDT Anemia due to stage 3b chronic kidney disease documented in this encounter Results * Scan Doc: Ords - Provider Care (12/06/2023 12:00 AM EDT) Narrative 12/06/2023 12:00 AM EDT Ordered by an unspecified provider. Scanning Provider MEDIA MGR SCAN EXT O RDR/RSLT * (ABNORMAL) Protein/Creatinine Ratio, urine (11/27/2023 8:00 AM EDT) Protein, Urine 202(H) 0 - 12 mg/dL 11/27/2023 9:[address] [facility] Creatinine, Urine 80 mg/dL 11/27/2023 9:[address] [facility] Protein / Creatinine Ratio, Urine 2.5 ratio 11/27/2023 9:[address] [facility] Urine URINE SPECIMEN / Unknown Non Blood Collection / Unknown 11/27/2023 8:00 AM EDT 11/27/2023 8:00 AM EDT Donavon Frey MD URINE ORDERABLES [facility] [place] [address] * (ABNORMAL) U Albumin/Cre Ratio (11/27/2023 8:00 AM EDT) Albumin, Urine 1,182.0 mg/L 11/27/2023 9:[address] [facility] Creatinine, Urine 80 mg/dL 9:[address] [facility] Albumin / Creatinine Ratio, Urine 1,478(H) 0 - 29 mcg/mg Cr 11/27/2023 9:07 AM EDT [facility] Comment: Reference Ranges: ?? [...] AM EDT Donavon Frey MD URINE ORDERABLES Performing Organization Address City/[facility]/ZIP Co de Phone Number [facility] [place] [address] * Phosphorus (11/27/2023 7:56 AM EDT) Phosphorus 3.3 2.5 - 4.5 mg/dL 11/27/2023 9:[address] [facility] Blood VENOUS BLOOD SPECIMEN / Unknown Venipuncture / Unknown 11/27/2023 7:56 AM EDT 11/27/2023 7:56 AM EDT Donavon Frey MD CHEMISTRY ORDERABLES [facility] [place] [address] * (ABNORMAL) Iron and TIBC (11/27/2023 7:56 AM EDT) Iron 37(L) 45 - 160 mcg/dL 11/27/2023 9:[address] [facility] TIBC 285 250 - 450 mcg/dL 11/27/2023 9:[address] [facility] Iron Saturation 13(L) 20 - 50 % 9:[address] [facility] Blood VENOUS BLOOD SPECIMEN / Unknown Venipuncture / Unknown 11/27/2023 7:56 AM EDT 11/27/2023 7:56 AM EDT Donavon Frey MD CHEMISTRY ORDERABLES [facility] [place] [address] * Ferritin (11/27/2023 7:56 AM EDT) Ferritin 209 31 - 409 ng/ml 11/27/2023 9:[address] [facility] Blood VENOUS BLOOD SPECIMEN / Unknown Venipuncture / Unknown 11/27/2023 7:56 AM EDT 11/27/2023 7:56 AM EDT Donavon Frey MD CHEMISTRY ORDERABLES [facility] [place] [address] * (ABNORMAL) Vitamin D, 25-Hydroxy (11/27/2023 7:56 AM EDT) Vitamin D Total 25 OH 13(L) 21 - 100 ng/ml 11/27/2023 9:[address] [facility] Vitamin D Total 25 OH Interp Deficient 11/27/2023 9:[address] [facility] Blood VENOUS BLOOD SPECIMEN / Unknown Venipuncture / Unknown 11/27/2023 7:56 AM EDT 11/27/2023 7:56 AM EDT Donavon Frey MD CHEMISTRY ORDERABLES [facility] [place] [address] * PTH (11/27/2023 7:56 AM EDT) Pathologist [facility] Parathyroid Hormone 63 15 - 65 pg/mL 11/27/2023 8:[address] [facility] Blood VENOUS BLOOD SPECIMEN / Unknown Venipuncture / Unknown 11/27/2023 7:56 AM EDT 11/27/2023 7:56 AM EDT Donavon Frey MD CHEMISTRY ORDERABLES Performing Organization Address City/State/[facility] Co de Phone Number [facility] [place] [address] * (ABNORMAL) CBC (with Diff) (11/27/2023 7:56 AM EDT) [facility] White Blood Cell 7.01 4.00 - 9.50 x10(3)/mc L 11/27/2023 8:19 AM [facility] Red Blood Cell 4.32(L) 4.58 - 5.54 x10(6)/mc L 11/27/2023 8[facility] Hemoglobin 9.4(L) 13.7 - 16.5 g/dL 11/27/2023 8:19 AM [facility] Hematocrit 32.1(L) 40.5 - 48.5 % 11/27/2023 8:19 AM [facility] Mean Cell Volume 74.3(L) 82.9 - 93.1 fL 11/27/2023 8:[facility] Mean Cell Hemoglobin 21.8(L) 27.5 - 32.1 pg 11/27/2023 8:19 AM [facility] Mean Cell Hemoglobin Concentration 29.3(L) 32.0 - 35.7 g/dL 11/27/2023 8:19 AM [facility] Platelet 430(H) 145 - 357 x10(3)/mc L 11/27/2023 8:[facility] Mean Platelet Volume 10.2 7.6 - 12.9 fL 11/27/2023 8:19 AM [facility] RDW Standard Deviation 60.0(H) 36.0 - 45.0 fL 11/27/2023 8:19 AM [facility] RDW coefficient of variation 22.6(H) 11.4 - 13.8 % 11/27/2023 8:19 AM [facility] NRBC% auto 0.0 % 11/27/2023 8:19 AM [facility] NRBC Absolute <0.01 <0.01 x10(3)/mc L 11/27/2023 8:19 AM [facility] Neutrophil % 63.1 % 11/27/2023 8:19 AM [facility] Neutrophil Absolute (ANC) - Automated 4.42 1.70 - 6.10 x10(3)/mc L 11/27/2023 8:19 AM [facility] Lymph % 22.5 % 11/27/2023 8:19 AM [facility] Lymph Absolute 1.58 0.90 - 3.20 x10(3)/mc L 11/27/2023 8:19 AM [facility] Monocyte % 8.7 % 11/27/2023 8:19 AM [facility] Monocyte Absolute 0.61 0.30 - 0.90 x10(3)/mc L 11/27/2023 8:19 AM [facility] Eos % 4.0 % 11/27/2023 8:19 AM [facility] Eos Absolute 0.28 0.00 - 0.40 x10(3)/mc L 11/27/2023 8:19 AM [facility] Basophil % 1.1 % 11/27/2023 8:19 AM [facility] Baso Absolute 0.08 0.00 - 0.10 x10(3)/mc L 11/27/2023 8:19 AM [facility] Immature Gran % 0.6 % 8:[address] [facility] Immature Gran Absolute 0.04 0.00 - 0.04 x10(3)/mc L 11/27/2023 8:[address] [facility] Blood VENOUS BLOOD SPECIMEN / Unknown Venipuncture / Unknown 11/27/2023 7:56 AM EDT 11/27/2023 7:56 AM EDT Donavon Frey MD HEMATOLOGY ORDERABLE S [facility] [place] [address] * Albumin Level (11/27/2023 7:56 AM EDT) Pathologist [facility] Albumin 3.5 3.2 - 5.2 g/dL 11/27/2023 8:[address] [facility] Blood VENOUS BLOOD SPECIMEN / Unknown Venipuncture / Unknown 11/27/2023 7:56 AM EDT 11/27/2023 7:56 AM EDT Donavon Frey MD CHEMISTRY ORDERABLES [facility] [place] [address] * (ABNORMAL) Basic Metabolic Panel Non-fasting (11/27/2023 7:56 AM EDT) Pathologist [facility] Glucose 132 65 - 199 mg/dL 11/27/2023 8:[address] [facility] Comment:Glucose Concentratio n >=200 mg/dL plus symptoms is consistent with Diabetes Mellitus. Blood Urea Nitrogen 63(H) 10 - 20 mg/dL 11/27/2023 8:[address] [facility] Creatinine 3.23(H) 0.80 - 1.50 mg/dL 11/27/2023 8:[address] [facility] Sodium 139 135 - 145 mMol/L 11/27/2023 8:[address] [facility] Potassium 5.6(H) 3.5 - 5.0 mMol/L 11/27/2023 8:58 AM [facility] Chloride 108(H) 98 - 107 mMol/L 11/27/2023 8:58 AM [facility] Carbon Dioxide 21(L) 22 - 31 mMol/L 11/27/2023 8:58 AM [facility] Anion Gap 10 5 - 15 mMol/L 11/27/2023 8:58 AM [facility] Calcium 8.8 8.5 - 10.5 mg/dL 11/27/2023 8:58 AM [facility] Est Glomerular Filtration Rate - Male 23 mL/min/1. 73 m?? 11/27/2023 8:58 AM [facility] Comment: This patient's estimated GFR was [...] Fasting Status No 11/27/2023 8:[address] [facility] Blood VENOUS BLOOD SPECIMEN / Unknown Venipuncture / Unknown 11/27/2023 7:56 AM EDT 11/27/2023 7:56 AM EDT Donavon Frey MD CHEMISTRY ORDERABLES [facility] [place] [address] documented in this encounter Visit Diagnoses Diagnosis DONAL (acute kidney injury) Acute kidney failure, unspecified Stage 3b chronic kidney disease Anemia due to stage 3b chronic kidney disease Hyperphosphatemia Disorders of phosphorus metabolism Suspected sleep apnea documented in this encounter Care Teams Lean Leader Relationship Specialty Start Date End Date Minesh Wagner PA [facility] [place] [address] PCP - General Internal Medicine 11/21/23 documented as of this encounter
--- OUTSIDE RECORDS SUMMARY | 2024-01-04 13:09 | XMS_ITS | Encounter Summary ---
Author Organization [facility] Address [facility] [place] [address] Care Team Providers Care Apple Packing Header Name Role Phone Minesh Wagner Primary Care Provider + Reason for Visit * Reason Onset Date Comments Medication Refill 12/04/2023 Encounter Details Date Type Department Care Team (Late st Contact Info) Description 12/04/2023 Refill Cardiology at [address] [phone] Olga Chavarria PA [facility] [place] [address] Medication Refill Social History Tobacco Use Types Packs/Day Years Used Date Smoking Tobacco: Former Cigarettes 1 10 Smokeless Tobacco: Never Alcohol Use Standard Drinks/Week Comments Not Currently 0 (1 standard drink = 0.6 oz pure alcohol) Pt reports I haven't had a beer in months [facility] Utilities Answer Date Recorded In the past 12 months has [employer] electric, gas, oil, or water company threatened [...] place to sleep or slept in a mcfp (including now)? No 06/05/2023 Housing Stability Vital Sign Answer Bertram e Recorded In the last 12 months, was t here a time when you were not able to pay the mortgage or rent on time? No 11/01/2023 In the past 12 months, how m any times have you moved where you were living? 0 11/01/2023 At any time in the past 12 m [facility], were you homeless or living in a mcfp (including now)? No 11/01/2023 DH IPV Inpatient [...] Telephone Encounter - Karen Landrum RN - 12/04/2023 3:30 PM EDT Patient started on Amiodarone 200 mg once daily following recent hospitalization. Patient does not have enough mediation to last until his 12/21/[address] Krishna. He is asking for an extra 10 days- then will check about a retirement supply if he is to continue taking. Rx prepped and sent to provider for approval. Karen Landrum RN, BSN Ambulatory Cardiology Department Covering Interventional Cardiology team documented in this encounter Plan of Treatment Upcoming Encounters Date Type Department Care Team (Late st Contact Info) Description 01/31/2024 9:30 AM EST Office Visit Neph[place] [phone] Donavon Frey MD [facility] [place] [address] 02/06/2024 1:00 PM EST Office Visit Cardiology at [address] [phone] Adrian Tello MD [facility] [place] [address] 04/25/2024 10:30 AM EST Office Visit Sleep Center at [address] [phone] Maria De Jesus Lange APRN [facility] [place] [address] documented as of this encounter Visit Diagnoses Diagnosis ST elevation myocardial infarction (STEMI), unspecified artery S/P CABG x 3 Postsurgical aortocoronary bypass status documented in this encounter Care Teams Apple Packing Header Relationship Specialty Start Date End Date Minesh Wagner PA Kasey SPARKS [place] [place] [address] PCP - General Internal Medicine 11/21/23 documented as of this encounter
--- OUTSIDE RECORDS SUMMARY | 2024-01-04 13:09 | XMS_ITS | Encounter Summary ---
Author Organization [facility] Address [facility] [place] [address] Care Team Providers Care City Surveyor Name Role Phone Minesh Wagner Primary Care Provider + Reason for Visit * Reason Comments Medication Refill Encounter Details Date Type Department Care Team ([facility] st Contact Info) Description 12/04/2023 Refill [place] [address] Anthony Diana PA [facility] [place] [address] Social History Tobacco Use Types Packs/Day Years Used Date Smoking Tobacco: Former Cigarettes 1 10 Smokeless Tobacco: Never Alcohol Use Standard Drinks/Week Comments Not Currently 0 (1 standard drink = 0.6 oz pure alcohol) Pt reports I haven't had a beer in months [facility] Utilities Answer Date Recorded In the past 12 months has [employer] electric, gas, oil, or water [employer] threatened to shut off services in your [...] place to sleep or slept in a halfway (including now)? No 06/05/2023 Housing Stability Vital Sign Answer Bertram e Recorded In the last 12 months, was t here a time when you were not able to pay the mortgage or rent on time? No 11/01/2023 In the past 12 months, how m any times have you moved where you were living? 0 11/01/2023 At any time in the past 12 m [facility], were you homeless or living in a halfway (including now)? No 11/01/2023 IPV Inpatient Questions [...] AM EST Office Visit Nephrology [place] [address] Donavon Frey MD [facility] [place] [address] 02/06/2024 1:00 PM EST Office Visit Cardiology at [address] [phone] Adrian Tello MD [facility] [address] 04/25/2024 10:30 AM EST Office Visit Sleep Center at [facility] [address] [place] [phone] Maria De Jesus Lange APRN [facility] [place] [address] documented as of this encounter Visit Diagnoses Not on filedocumented in this encounter Care Teams City Surveyor Relationship Specialty Start Date End Date Minesh Wagner [place] [address] [place] [address] PCP - General Internal Medicine 11/21/23 documented as of this encounter
--- OUTSIDE RECORDS SUMMARY | 2024-01-04 13:09 | XMS_ITS | Encounter Summary ---
[place] [address] Care Team Providers Care Department Chairperson Name Role Phone Minesh Wagner Primary Care Provider + Encounter Details Date Type Department Care Team ([facility] st Contact Info) Description 12/07/2023 Telephone [place] [phone] Roslyn Garza, DELL Social History Tobacco Use Types Packs/Day Years Used Date Smoking Tobacco: Former Cigarettes 1 10 Smokeless Tobacco: Never Alcohol Use Standard Drinks/Week Comments Not Currently 0 (1 standard drink = 0.6 oz pure alcohol) Pt reports I haven't had a beer in months [facility] Utilities Answer Date Recorded In the past 12 months has [employer], gas, oil, or water [employer] threatened to shut off services in your [...] place to sleep or slept in a intermediate (including now)? No 06/05/2023 Housing Stability Vital [...] in the past 12 m [facility], were you homeless or living in a intermediate (including now)? No 11/01/2023 IPV Inpatient Questions [...] AM EST Office Visit [place] [address] Donavon Frey MD [facility] [place] [address] 02/06/2024 1:00 PM EST Office Visit Cardiology at [address] [phone] Adrian Tello MD [facility] [place] [address] 04/25/2024 10:30 AM EST Office Visit Sleep Center at [facility] [address] [place] [address] Maria De Jesus Lange APRN [facility] [place] [address] documented as of this encounter Visit Diagnoses Not on filedocumented in this encounter Care Teams Department Chairperson Relationship Specialty Start Date End Date Minesh Wagner PA [facility] [place] [address] PCP - General Internal Medicine 11/21/23 documented as of this encounter
--- OUTSIDE RECORDS SUMMARY | 2024-01-04 13:09 | XMS_ITS | Encounter Summary ---
Author Organization [facility] Address [facility] [place] [address] Care Team Providers Care Manager Market Intelligence Name Role Phone Minesh Wagner Primary Care Provider + Encounter Details Date Type Department Care Team (Late st Contact Info) Description 11/21/2023 Orders Only [place] [address] He Styles PA [facility] [place] [address] Social History Tobacco Use Types Packs/Day Years Used Date Smoking Tobacco: Former Cigarettes 1 10 Smokeless Tobacco: Never Alcohol Use Standard Drinks/Week Comments Not Currently 0 (1 standard drink = 0.6 oz pure alcohol) Pt reports I haven't had a beer in months [facility] Utilities Answer Date Recorded In the past 12 months has [employer], gas, oil, or water [employer] threatened to shut off services in your [...] place to sleep or slept in a [place] (including now)? No 06/05/2023 Housing Stability Vital Sign Answer Bertram e Recorded In the last 12 months, was t here a time when you were not able to pay the mortgage or rent on time? No 11/01/2023 In the past 12 months, how m any times have you moved where you were living? 0 11/01/2023 At any time in the past 12 m [facility], were you homeless or living in a [place] facility (including now)? 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 Tried tylenol and ibuprofen yesterday with no relief. Dilaudid didn't work well in the hospital. I sent a script for oxycodone to his local pharmacy to help with pain so he can sleep at night. Verbal consent obtained discussing risks and benefits of narcotics. ORT questions and [place] PDMP query completed. documented in this encounter Plan of Treatment Upcoming Encounters Date Type Department Care Team (Late st Contact Info) Description 01/31/2024 9:30 AM EST Office Visit Neph[place] [address] Donavon Frey MD [facility] [place] [address] 02/06/2024 1:00 PM EST Office Visit Cardiology at [address] [phone] Adrian Tello MD [facility] DR [place] [address] 04/25/2024 10:30 AM EST Office Visit Sleep Center at [facility] [address] [place] [phone] Maria De Jesus Lange APRN [facility] [place] [address] documented as of this encounter Visit Diagnoses Not on filedocumented in this encounter Care Teams Manager Market Intelligence Relationship Specialty Start Date End Date iMnesh [place] [address] PCP - General Internal Medicine 11/21/23 documented as of this encounter
--- OUTSIDE RECORDS SUMMARY | 2024-01-04 13:12 | XMS_ITS | Encounter Summary ---
Author Organization [facility] Address [facility] [place] [address] Care Team Providers Care Size Worker Name Role Phone Bandar Hahn MD Primary Care Provider [phone] Reason for Referral * Consultation (Routine) - Authorized Specialty Diagnoses / Procedures Referred By Martha vasquez Referred To Contact Cardiology Diagnoses S/P CABG x 3 Timi Person MD [facility] [place] [address] Cardiac Rehab, [address] [place] [address] Referral ID Status Reason Start Date Expiration Date Visits Requested Visits Authorized [id number] Authorized Consult, Test & Treat Non PCP 11/18/2023 05/16/2024 36 36 * Home Health Care (Routine) - Authorized Specialty Diagnoses / Procedures Referred By Martha vasquez Referred To Contact Diagnoses S/P CABG x 3 Timi Person MD [facility] [place] [address] Home Health, [facility] [address] [place] [address] Referral ID Status Reason Start Date Expiration Date Visits Requested Visits Authorized [id number] Authorized Consult, Test & Treat 11/18/2023 05/16/2024 999 999 Reason for Visit * Auth/Cert (Routine) Specialty Diagnoses / Procedures Referred By Contac t Referred To Contact Diagnoses ASCVD (arteriosclerotic cardiovascular disease) ASCVD Procedures PRO ENDOSCOPY W/VIDEO-ASST VEIN HARVEST, CABG PRO CABG, ARTERIAL, SINGLE PRO CABG, ARTERY-VEIN, TWO ENDOSCOPIC HARVEST VEIN(S) FOR CABG (WRVU 0.31) @CABG, USING ARTERIAL GRAFT;SINGLE ARTERIAL GRAFT (WRVU 33.75) @CABG, TWO VENOUS GRAFTS & ARTERIAL GRAFT (WRVU 7.93) Timi Person MD [facility] [place] [address] [facility] Referral ID Status Reason Start Date Expiration Date Visits Re quested Visits Authorized [id number] 1 1 Encounter Details Date Type Department Care Team (Latest Contact Info) Description 10/30/2023 6:13 AM EDT - 11/18/2023 1:45 PM EDT Hospital Encounter Heart and Vascular Unit Level 4 [place] [address] Timi Person MD [facility] [place] [address] 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; 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, with long-term current use of insulin, unspecified laterality; S/P CABG x 3; Hypertension, unspecified type; ST elevation myocardial infarction (STEMI), unspecified artery Discharge Disposition: Home with VNA Social History Tobacco Use Types Packs/Day Years Used Date Smoking Tobacco: Former Cigarettes 1 10 Smokeless Tobacco: Never Alcohol Use Standard Drinks/Week Comments Not Currently 0 (1 standard drink = 0.6 oz pure alcohol) Pt reports I haven't had a beer in months [facility] Utilities Answer Date Recorded In [...] place to sleep or slept in a residential (including now)? No 06/05/2023 Housing Stability Vital Sign Answer Bertram e Recorded In the last 12 months, was t here a time when you were not able to pay the mortgage or rent on time? No 11/01/2023 In the past 12 months, how m any times have you moved where you were living? 0 11/01/2023 At any time in the past 12 m [facility], were you homeless or living in a residential (including now)? No 11/01/2023 DH IPV Inpatient [...] Sign Reading Time Taken Comments Blood Pressure 140/79 11/18/2023 7:42 AM EDT Pulse 89 11/18/2023 7:42 AM EDT Temperature 36.7 ??C (98.1 ??F) 11/18/2023 7:42 AM ED T Respiratory Rate 20 11/18/2023 3:39 AM EDT Oxygen Saturation 96% 11/18/2023 7:42 AM EDT Inhaled Oxygen Concentration - - Weight 117 kg (258 lb) 11/18/2023 4:53 AM EDT Height 177.8 cm (5' 10) 10/30/2023 6:59 AM EDT Body Mass Index 37.02 10/30/2023 6:59 AM EDT documented in this encounter Discharge Summaries * Anthony Diana PA - 11/18/2023 10:13 AM EDT Inpatient - Discharge Summary Patient Name: Hayden Russo Patient Age: 47 y.o. Birthdate: 1975 Language: Uzbek Race: White Ethnicity: Not nor Admit Date: 10/30/2023 Discharge Date: 11/18/23 Attending Physician: Timi Person MD Follow-up Recommendations for Providers: Please continue routine management of cardiovascular risk factors including blood pressure, lipids,glucose, etc. Please note any changes to medications. Patient to follow up with PCP, Bandar Hahn MD, in 1-2 weeks. Patient to follow up with [employer] Patient to follow up with Cardiac Surgeon, Dr. Timi Person, with a chest x-ray and EKG. Patient to follow up with Nephrology, 11/22 at 4:30pm. Inpatient Provider Contact Information: [facility] Section of Cardiac Surgery [facility] [address] FAX [phone] Discharge Diagnoses (Hospital Problems) Primary Diagnoses: CAD s/p CABGx3 Secondary Diagnoses: Post operative acute hypoxemic respiratory failure related to cardiac surgery RV dysfunction Acute renal failure on chronic renal insufficiency Post operative atrial fibrillation related to cardiac surgery Age indeterminate right peroneal DVT Vitamin D deficiency Acute post-op blood loss anemia superimposed on anemia of chronic disease Poorly controlled DM2 Euthyroid sick state Other Diagnoses (Chronic Problems): Active Non-Hospital Problems Diagnosis STEMI (ST elevation myocardial infarction) Acute ST elevation myocardial infarction (STEMI) of inferior wall Discharged to: Patient discharged to home Past Medical History: Diagnosis Date Coronary artery disease Diabetes Hypertension Past Surgical History: Procedure Laterality Date CORONARY ANGIOPLASTY WITH STENT PLACEMENT HERNIA REPAIR PRG CATH PLMT LEFT HEART CATH & ARTS W/INJ & ANGIO IMG S&I N/A 08/04/2023 CORONARY ANGIOGRAPHY; W LHC,POSSIBLE PCI (WRVU 5.6) performed by Azul Rowley MD at [facility] CATHLABS PRO CABG, ARTERIAL, SINGLE N/A 10/30/2023 @CABG, USING ARTERIAL GRAFT;SINGLE ARTERIAL GRAFT (WRVU 33.75) performed by Timi Person MD at [facility] MAIN OR PRO CABG, ARTERY-VEIN, TWO N/A 10/30/2023 @CABG, TWO VENOUS GRAFTS & ARTERIAL GRAFT (WRVU 7.93) performed by Timi Person MD at [facility] MAIN OR PRO ENDOSCOPY W/VIDEO-ASST VEIN HARVEST, CABG N/A 10/30/2023 ENDOSCOPIC HARVEST VEIN(S) FOR CABG (WRVU 0.31) performed by Timi Person MD at [facility] MAIN OR Prior To Admission Medications Medications Prior to Admission Medication Sig Dispense Refill Last Dose [DISCONTINUED] carvediloL (Coreg) 6.25 mg tablet Take 1 tablet by mouth twice daily 60 tablet 0 10/30/2023 [DISCONTINUED] losartan (Cozaar) 25 mg tablet Take 1 tablet by mouth daily. 90 tablet 3 10/29/2023 [id number] prasugreL (Effient) 10 mg tablet Take 1 tablet by mouth daily. 90 tablet 3 10/22/2023 pantoprazole EC (Protonix) [address] tablet Take 1 tablet by mouth daily. 90 tablet 3 10/30/2023 aspirin 81 mg Tablet, Chewable Take 81 mg by mouth daily. 30 tablet 3 10/30/2023 [DISCONTINUED] atorvastatin (LIPITOR) 80 mg Tablet Take 1 tablet by mouth every evening. 90 tablet 3 10/30/2023 chlorhexidine (HIBICLENS) 4 % Liquid Apply topically daily as needed. Shower from head to toe with Chlorhexidine the night before surgery . mupirocin (Bactroban) 2 % Ointment Apply 1 each topically 2 times daily. Apply a small amount to each nostril twice daily. Begin 5 days prior to the day of surgery. 22 g 0 blood-glucose meter (FREESTYLE) Kit USE TO CHECK GLUCOSE THREE TIMES DAILY 0 ONETOUCH ULTRA BLUE TEST STRIP Strip USE 1 STRIP TO CHECK GLUCOSE THREE TIMES DAILY . 11 [DISCONTINUED] BASAGLAR KWIKPEN U-100 INSULIN 100 unit/mL (3 mL) pen INJECT 50 UNITS SUBCUTANEOUSLYEVERY DAY AT BEDTIME 1 [DISCONTINUED] HUMALOG KWIKPEN 100 unit/mL Insulin Pen INJECT 20 UNITS SUBCUTANEOUSLY UP TO THREE TIMES DAILY BEFORE MEALS 3 nitroGLYcerin (NITROSTAT) 0.4 mg Tablet, Sublingual Place 1 tablet under the tongue every 5 minutesas needed for Chest pain. 90 tablet 12 Updated Allergies/ADRs: No Known Allergies History of Presentation: Mr. Russo is a 47-year-old man whose history dates back to 2018 when he presented with a right coronary STEMI that was treated with primary PCI and intracoronary stent placement. He then returned with recurrent chest pain earlier this year, cardiac cath showed complete occlusion of his stented right coronary which was reopened with a second layer of stents. He represented for completion revascularization in July and was found to have again closure of his right coronary system which was reopenedand he was referred for open revascularization. In aggregate his current angiogram demonstrates several layers of stent in his right coronary with a small but potentially graftable PDA. His LAD has a50% long mid lesion and there is a significant lesion at the and 80% mid circumflex with a graftable marginal branch. His last echo showed a systolic function of about 50% with inferior wall hypokinesis. His symptoms are those of profound fatigue and exercise chest pain. His past medical history is importantly positive for poorly treated hypertension, he is also relatively poorly controlled diabetic with a last A1c that I saw of 11.2. He has chronic renal insufficiency with a creatinine of about 2-1/2-3. He used tobacco up until May of this year, he has not had a prior CVA or TIA. He has noknown hepatic insufficiency. His past surgical history is unremarkable. On examination He has a blood pressure 160/80, his pulse is in the 80s at sinus by palpation. His HEENT examination is unremarkable, there is no scleral icterus or arcus senilis. He does not have cervical bruits or masses. There are no clear cardiac murmurs. His lower extremities are free of obvious edema or gross varicosities. In summary Mr. Russo has severe, premature atherosclerotic coronary disease and is diabetic. I agree that he may benefit from open revascularization, the plan would be to graft to his PDA marginal and LAD. He is at higher risk due to his comorbidities particularly that of renal insufficiency and a BMI of 39. The potential risks and anticipated benefits including the possibility of hemodialysis dependent renal failure reviewed with Mr. Russo. He does wish to proceed and has given written informed consent. Major Procedures/Operations: 10/30/23: CABGx3 (GREEN[place]OD-LAD, SVG->OM2, SVG->PDA) 11/02/23: flexible fiberoptic bronchoscopy with diagnostic lavage Hospital Course: Hayden Russo was admitted to [facility] on 10/30/2023 via the Same DayProgram. He was brought to the operating room where Dr. Timi Person performed coronary artery bypass grafting. He tolerated the procedure and was brought to the Cardiovascular Intensive Care Unit for recovery. He initially required the pharmacologic support of intravenous epinephrine, milrinone, levophed, and vasopressin. His RV function was moderately reduced when imaged in the OR. This was unchanged on post-op bedside echo. Inotropic support was gradually weaned off with satisfactory cardiac output and the swan was removed. He required prolonged ventilatory support due to poor oxygenation. CT chest showed bilateral lower lobe collapse and no significant pleural effusions. PEEP was increased to help recruit atelectatic lung. He spiked a fever and was started on empiric antibiotics after cultures were sent. Bronchoscopywas performed and BAL sent as well which resulted in mixed normal respiratory adrian. He completed 6day course of zosyn. Inhaled nitric oxide was added for refractory hypoxemia. Nitric was weaned offby POD 10. LE duplex showed age indeterminate right peroneal DVT. Heparin gtt was started. This wastransitioned to Eliquis reduced dose given triple therapy prior to discharge. He will remain on triple therapy for at least 3 months for DVT. His respiratory status improved over several days and he was able to extubated POD11. Supplemental O2 was weaned and he was discharged on room air Enteral feedings were started via a Dobhoff tube which he tolerated. RESEARCH STATISTICIAN was consulted following extubation and he was advanced to a regular diet with thin liquids. He also developed renal failure with a rising creatinine and oliguria. Diuretics were started with lasix drip and intermittent diuril boluses. He responded well and potassium normalized but his phosphorus was markedly elevated and his creatinine continued to rise. Nephrology was consulted and recommended starting CVVH. He did not tolerate initiation at that time due to hypotension despite blood transfusion for anemia and therefore diuretics were continued. On pod 8 cr had peaked over 6 and cvvhwas re-attempted and tolerated. He continued on CRRT until POD 14. Labs and UOP were closely monitored and he showed signs of recovery. His creatine stabilized and he was discharged on torsemide with nephrology follow up on 11/22. He developed atrial fibrillation on POD3 and converted to sinus rhythm with IV amiodarone. He was then transitioned to PO amiodarone on POD4. Low dose heparin was started which was later transitionedto low dose Eliquis 2.5 BID (in addition to ASA/plavix). Diabetes was consulted during his admission to assist in blood glucose control. Thyroid labs were checked at recommendation of nephrology and were consistent with Euthyroid sick syndrome and should be repeated in 4-6 weeks as an outpatient. His Vitamin D was low and replacement was started. Routine postoperative and home medications were started. Aspirin and Statin therapy was continued. Plavix was restarted POD1. He was started on beta blockade and this was optimized.. He was transferred to the Intermediate Cardiac Care Unit for continued rehabilitation. All tubes, lines, and epicardial pacing wires were removed without incident. He voided normally after his Todd was removed. He was seen by Physical Therapy and Cardiac Rehabilitation. Sternal precaution education was provided. His restrictions include no driving or lifting >10 pounds for 1 month. His discharge plan at this time is to home with VNA. The remainder of his hospital course was uneventful and by postoperative day # 19 he had met all criteria for discharge. Pain was controlled on oral medications. He had walked 5 minutes and gone up and down stairs. He was tolerating a regular diet and had a bowel movement. Vital Signs at Discharge: Last set of vitals: BP 140/79 (BP Location (NBP): Left arm) Pulse 89 Temp 36.7 ??C (98.1 ??F) (Oral) Resp 20 Ht 177.8 cm (5' 10) Wt 117 kg (258 lb) SpO2 96% BMI 37.02 kg/m?? Patient Vitals for the past 168 hrs: Weight 11/18/23 0453 117 kg (258 lb) 11/17/23 0410 118.3 kg (260 lb 14.4 oz) 11/16/23 0140 119.7 kg (263 lb 12.8 oz) 11/15/23 0600 121.6 kg (268 lb 1.3 oz) 11/14/23 0625 117.1 kg (258 lb 2.5 oz) 11/13/23 0200 122.1 kg (269 lb 2.9 oz) 11/12/23 0615 124.1 kg (273 lb 9.5 oz) Current weight: 117 kg Admit/Preop weight: 128.9 kg Pertinent physical exam findings prior to discharge: General: Well appearing, conversant, NAD, resting comfortably in bed Cardiac: Regular rate, S1/S2, no m/r/g Pulmonary: Normal effort on RA, lungs CTAB, no w/r/r Abdominal: Soft, NT/ND, +BS Extremities: WWP, no LE edema bilat Incisions: Sternotomy and GSV harvest incisions c/d/i Neurologic: A&Ox3, responds appropriately, moves all extremities with equal strength Important Studies and Lab Data: Lab Results Component Value Date WBC 10.34 (H) 11/16/2023 WBC 9.0 09/22/2023 RBC 4.27 (L) 11/16/2023 RBC 6.11 (H) 09/22/2023 HGB 9.3 (L) 11/16/2023 HGB 12.4 (L) 09/22/2023 HCT 30.2 (L) 11/16/2023 HCT 42.5 09/22/2023 PLATELET 498 (H) 11/16/2023 PLATELET 279 09/22/2023 No results for input(s): INR in the last 168 hours. Lab Results Component Value Date NA 139 11/18/2023 NA 138 09/22/2023 K 4.2 11/18/2023 K 4.9 09/22/2023 CL 106 11/18/2023 CL 106 09/22/2023 CO2 21 (L) 11/18/2023 CO2 22 09/22/2023 BUN 48 (H) 11/18/2023 BUN 34 (H) 09/22/2023 CREATININE 3.24 (H) 11/18/2023 CREATININE 2.83 (H) 09/22/2023 Pending Studies and Lab Data: none Smoking Status at Discharge: Social History Tobacco Use Smoking Status Former Current packs/day: 1.00 Average packs/day: 1 pack/day for 10.0 years (10.0 ttl pk-yrs) Types: Cigarettes Smokeless Tobacco Never STS Data Medications: Pre-operative beta jacky? Given Discharge beta jacky? Given Discharge lipid therapy? Given Discharge anti-platelet therapy? Given Discharge AKIN or ARB restarted? Not indicated Discharge Medications: Your Medications New Medications Dose Details acetaminophen 500 mg tablet Commonly known as: Tylenol Take 2 tablets by mouth every 6 hours as needed for Pain. 1,000 mg Refills: 0 AMIOdarone 200 mg tablet Commonly known as: Pacerone Take 1 tablet by mouth daily. 200 mg Quantity: 30 tablet Refills: 0 apixaban 2.5 mg tablet Commonly known as: Eliquis Take 1 tablet by mouth 2 times daily. 2.5 mg Quantity: 60 tablet Refills: 5 citalopram 10 mg tablet Commonly known as: CeleXA Take 1 tablet by mouth daily. Start taking on: November 19, 2023 10 mg Quantity: 60 tablet Refills: 3 clopidogreL 75 mg tablet Commonly known as: Plavix Take 1 tablet by mouth daily. Start taking on: November 19, 2023 75 mg Quantity: 90 tablet Refills: 3 ferrous sulfate 325 mg (65 mg iron) tablet Commonly known as: FeroSul Take 1 tablet by mouth 3 times daily (with meals). 325 mg Refills: 0 sevelamer carbonate 800 mg tablet Commonly known as: Renvela Take 1 tablet by mouth 3 times daily (with meals). 800 mg Quantity: 90 tablet Refills: 0 torsemide 20 mg tablet Commonly known as: Demadex Take 1 tablet by mouth daily. Start taking on: November 19, 2023 20 mg Quantity: 90 tablet Refills: 0 Continued medications with new dosing Dose Details atorvastatin 40 mg tablet Commonly known as: Lipitor Take 1 tablet by mouth every evening for 30 days. Then resume 80mg daily What changed: medication strength how much to take additional instructions 40 mg Quantity: 30 tablet Refills: 0 carvediloL 25 mg tablet Commonly known as: Coreg Take 1 tablet by mouth 2 times daily. What changed: medication strength how much to take 25 mg Quantity: 180 tablet Refills: 3 humaLOG KwikPen 100 unit/mL Insulin Pen Inject 0-14 Units subcutaneously 3 times daily (with meals). Generic drug: insulin lispro What changed: See the new instructions. 0-14 Units Refills: 0 Insulin Basaglar KwikPen U-100 100 unit/mL (3 mL) pen Inject 40 Units subcutaneously daily. Generic drug: insulin glargine What changed: See the new instructions. 40 Units Refills: 0 losartan 100 mg tablet Commonly known as: Cozaar Take 1 tablet by mouth daily. What changed: medication strength how much to take 100 mg Quantity: 90 tablet Refills: 0 Continued medications, unchanged Dose Details aspirin 81 mg chewable tablet Take 81 mg by mouth daily. 81 mg Quantity: 30 tablet Refills: 3 blood-glucose meter Kit Commonly known as: FREESTYLE USE TO CHECK GLUCOSE THREE TIMES DAILY Refills: 0 OneTouch Ultra Blue Test Strip Strip USE 1 STRIP TO CHECK GLUCOSE THREE TIMES DAILY . Generic drug: blood sugar diagnostic strips Refills: 11 pantoprazole EC [address] tablet Commonly known as: Protonix Take 1 tablet by mouth daily. 40 mg Quantity: 90 tablet Refills: 3 STOPPED Medications chlorhexidine 4 % Liquid Commonly known as: HIBICLENS mupirocin 2 % Ointment Commonly known as: Bactroban nitroGLYcerin 0.4 mg sublingual tablet Commonly known as: Nitrostat prasugreL 10 mg tablet Commonly known as: Effient Instructions Given to Patient at Discharge: General Instructions Diabetes Discharge Instructions & Recommendations Check blood sugars when you wake up, before meals, bedtime, anytime you don't feel well. See new doses below for insulin glargine (Basaglar) and Humalog Follow-up with your diabetes provider for insulin adjustments if blood sugars are under 80 or over 200 after discharge. Instructions for insulin glargine (Basaglar) Insulin (LONG ACTING) Please inject Basaglar 40 units every morning. If your fasting blood sugars are above 150mg/dl two days in a row, please increase your Lantus by 2units. If your fasting blood sugars are below 90mg/dl two days in a row, please decrease your Lantus by 2 units. This dose now becomes your new daily dose unless it need to be further adjusted based on future glucose readings. Instructions for insulin lispro (Humalog) Mealtime & Correction Insulin Test your blood sugar ideally 15 minute before you plan to eat. Please inject a base dose of Humalog 10 units with meals. If you are eating a larger meal, please increase your Humalog to 14 units. If you are eating a smaller meal, please decrease your Humalog to 6 units. If you are not eating any carbohydrates or skipping a meal, please skip base dose of Humalog. Based on the scale below, add up the additional units you need for your current blood sugar reading- - this is based on a correction of 1 unit to lower your blood sugar 20 points: BG under 80 Subtract 2 units from your food dose, and eat right away. BG 80 - 100 Subtract 1 unit from your food dose and give just before eating. BG 100 - 160 Give your meal dose only if eating; BG 161 - 180 Give 2 units BG 181 - 200 Give 3 units BG 201 - 220 Give 4 units BG 221 - 240 Give 5 units BG 241 - 260 Give 6 units BG 261 - 280 Give 7 units BG 281 - 300 Give 8 units BG greater than 300, give 9 units and recheck BG in 2 hours. Call your diabetes provider if blood sugar continues over 250 4hrs after correction dose. Treatment of Low Blood Sugar (Hypoglycemia) 15:15 rule - if your blood sugars is under 80, eat 15g of sugar, and recheck your blood sugar in 15minutes. If you continue to be under 80 after 15 minutes, eat 15g of sugar more, and repeat. If BG is over 100 on recheck, no need to consume more sugar, and recheck BG in another 15 minutes. If your BG is lower than 80, you are likely to feel shaky, sweaty and lightheaded. This is a signalthat your body needs more sugar. Quickly eat or drink a 15g of something sweet, such as: 4 ounces fruit juice or regular (not diet) soda 6 lifesavers small box of raisins 4 glucose tablets (~15 gm of glucose) If your BG is very low <50, you can double the amount above or take 30 gm of glucose gel/tablets. Once you are feeling better, try to determine why your BG was so low. Common causes of hypoglycemiainclude skipping a meal, lots of exercise, too much insulin or any combination of these things. Understanding the cause my help you to avoid another low BG in the future. Test blood sugars prior to driving, make sure glucose levels are greater than 100mg/dl. If not havea snack and retest blood sugars in 15 minutes. Carry a glucose source on you at all times. Call your diabetes provider for blood sugars less than 80 or greater than 300 twice in one day to have your insulin doses adjusted. Cardiac Surgery Discharge Instructions: Call your doctor if: You have a fever of greater than 101 degrees, shaking chills, if you develop redness or drainage from your incision sites, or if you have questions. Please call your surgeon's office if you have any discharge or drainage from your chest incision. Your surgeon, Dr. Timi Person and/or the Cardiac Surgery Physician Data Communications Analyst Team may be reached at . Weight: Weigh yourself daily. Please call the office if you notice increasing weight, increasing fluid retention (edema), and/or SOB. Sternal (breast bone) precautions: No lifting greater than 7-10 pounds; no pushing or pulling with upper extremities; no excessive chest stretching for the first 4 weeks. Further instructions will begiven to you at your follow-up appointment. Activity level: Walk three times a day. You should continue to increase your walks by 1-2 minutes each day. It is expected that you will be walking 20-30 minutes twice a day within 3-4 weeks after discharge to home. Rest between activities and after meals. Use common sense, don't exhaust yourself. Biking: You may use a stationary bicycle whenever you are comfortable enough to permit this. Tighten the resistance slightly. Increase the amount of time on the bicycle as you would do for your walks, a minute or two each day. No biking outside until after your return appointment with Dr. Timi Person. You may use a [place] or treadmill but avoid any pulling motion with the arms. Home activities: You may do light housework, e.g. dusting, setting the table, washing dishes, preparing a meal. Light carpentry and gardening are allowed. Avoid trying to open tight jars and stuck windows. No vacuuming, mopping, raking, shoveling, digging or hoeing until after your return visit with the surgeon. Sexual activity: You may engage in sexual activity when you feel ready. Use a position that protects your sternum (breastbone). Do not have your partner lie on your chest. Stairs: There are no restrictions on stair climbing. Use common sense. Don't exhaust yourself. Activities outside the home: After the first week home you may go out to dinner, visit friends, go to a movie, go to orthodoxy, etc. Heavy activities: No hunting, skiing, jogging, snow shoveling, snowmobiling, lawn mowing, swimming,golf or tennis until after your return appointment with the surgeon. Do not ride motorcycles, [employer]tractors or horses. Avoid the use of a rifle with kickback against the shoulder for six months. Sleep: Try to establish normal sleep patterns. Long naps during the day may make it hard for you tosleep at night. Use the pain medication at bedtime for the first week at home. Smoking: It is very important that you not smoke after surgery. Smoking cessation education was provided as appropriate. If you need further assistance with this please call and you will be referred to a smoking cessation specialist. Medications: Take only those medications listed on your discharge information. Keep your pain undercontrol so you can be active, do your coughing and breathing exercises and sleep. Contact us if thepain medication isn't working for you. Do not take any herbal preparations until after you return to see the surgeon. Special Physician Instructions: DO NOT USE ANY IBUPROFEN (ADVIL, MOTRIN, ETC) OR OTHER NSAIDS (NONSTEROIDAL ANTI-INFLAMMATORY DRUGS) FOR A TOTAL OF 10 DAYS AFTER SURGERY. PLEASE CONTACT THE CARDIOTHORACIC SURGERY OFFICE IF YOU HAVE QUESTIONS ABOUT WHICH DRUGS YOU SHOULD NOT USE. . Diet: You should follow a regular diet until your appetite returns to normal. At that point in timeyou should resume a low fat, low cholesterol, [place] Heart Association Diet/Diabetic diet/Renal diet. Driving: No driving until cleared by your surgeon. Avoid long trips if possible. If you must go on a long trip, stop the car and walk every hour. Shower/Bath: You may shower daily. No baths, soaking, or swimming until cleared by your surgeon. Wound care: Wash your incisions daily with soap and rinse well, pat dry. Assess for any signs of infection such as increased redness, pain, warmth or drainage. Please call your surgeon's office if you have any discharge or drainage from your chest incision. If there is a lot of swelling, apply akin wraps during the day and remove at bedtime. Elevate your legs when you are sitting. MEDICATION REFILL REQUESTS - Please note that Cardiac Surgery will not maintain regular refill requests for your medications as these can change during and after your recovery while being managed by your PCP and/or [employer]. For future medication refills, please refer to your PCP and/or [employer] after your discharge from our service. Thank you REMOVE CHEST TUBE SUTURES ON OR AFTER 11/20/23 Home oxygen therapy: N/A Follow up appointments: You should follow up with your PCP, Bandar Hahn MD, in 1-2 weeks. Our office will schedule an appointment with your [employer]member. You have an appointment with your Cardiac Surgeon, Dr. Timi Person, with a chest x-ray and EKG before your appointment. You have an appointment with Nephrology, Dr. Frey, 11/22 at 4:30pm. Cardiac Rehabilitation: Hayden Russo was seen today regarding participation in the outpatient Phase 2 Cardiac Rehabilitation at [facility]. The patient agrees to a referral to this program. The referral will be sent at discharge and the patient should be contacted by the Program within 1-2 weeks from discharge. Future Appointments and Orders Future Appointments and Orders Future Appointments Provider Department Dept Phone 11/23/2023 4:30 PM Donavon Frey MD Nephrology Hypertension at [facility] Arrive at: [facility] [phone] Future Orders Complete By Expires EKG 12 Lead [25405 CPT(R)] 12/18/2023 (Approximate) 06/18/2024 Process Instructions: Scheduling Instructions: Questions: Which [facility] location will this be performed?: [place] Is a rhythm strip needed?: No XR Chest PA & Lateral (Generic) [11410 02857 Custom] 12/18/2023 (Approximate) 06/18/2024 Process Instructions: Scheduling Instructions: Questions: Reason for exam and clinical history: s/p CABG Where will study be performed?: [facility] Radiology Portable exam?: Stat read required?: Date of injury if applicable: Referral to Cardiac Rehab [UQC090 Custom] As directed Process Instructions: If no progress note charted, please enter Clinical details in comments. Scheduling Instructions: Questions: My question or request is: s/p CABG- cardiac rehab at [facility] Referral to Home Health [REF34 Custom] As directed Process Instructions: If no progress note charted, please enter Clinical details in comments. Scheduling Instructions: Comments: Please evaluate Hayden Russo for admission to Home Health. [address] [place] [id number] Phone Number: [phone] (home) Date of : 1975 Inpatient DOCUMENTATION FOR VNA SERVICES (INCLUDING THOSE PATIENTS WITH MEDICARE COVERAGE REQUIRINGHOME VNA SERVICES AND/OR HOSPICE SERVICES) PATIENT'S LOCATION: Hayden Russo [address] [address] [phone] (home) Telephone Information: Pull Through Hooker's Name: Alina Russo/ In discussion with the attending physician, it is certified that this patient is under their care and that they, or a Nurse Practitioner, or Physician Data Communications Analyst who is working directly with them, hada face to face encounter that meets the physician face to face encounter requirements with this patient on 11/18/23 The encounter with the patient was in whole, or in part, for the following medical condition, whichis the primary reason for home health care services: s/p CABG In discussion with the provider, it is certified that, based on their findings, the following services are medically necessary for home health services. To provide the following care/treatments with the clinical findings supporting the need for services as follows: HOME HEALTH AGENCY: [facility] [place] [id number] and RN orders: Cardiopulmonary assessment, incisional assessment, assess vital signs, assessment of rehab progress, medication management and effectiveness, home safety evaluation. Chest Tube Suture Removal Date 11/20/23 PT ORDERS: Continue rehab for endurance, gait stability and strength with mobility and transfers. Home safety evaluation. Home exercise program if appropriate. Start of Care Date:24-48hrs after discharge SPECIAL INSTRUCTIONS: For any follow up questions, needs, or issues please call the Cardiology Office at [phone] FOR MEDICARE ONLY: (please delete this section if not Medicare) In discussion with the attending physician, it is certified that the clinical findings support thatthis patient is homebound i.e. absences from home require considerable and taxing effort due to: Restricted mobility and poor activity tolerance due to recent cardiac surgery. Patient requires assistance of another person to leave the home. Home Health agencies which cover the area of patient's residence have been reviewed, either verbally or in writing, and patient/family have chosen the agency as noted. In discussion with the attending physician, it is certified that the clinical findings support thatthis patient is homebound because absences from home require considerable and taxing effort due to:Restricted mobility due to lower extremity strength and motion due to recent surgery Unsteady gait, poor balance, requiring assistive devices and/or assistance of another. Questions: Disciplines Requested: Nursing Physical Therapy Occupational Therapy Arrangements for VNA/home care: As above. Signed: GLENIS Suarez [facility] Section of Cardiac Surgery [facility] [address] FAX [phone] Date: 11/18/2023 CC: MD Deon Sesay Lauren, PA [facility] [place] [address] documented in this encounter Discharge Instructions * Discharge Instructions* Anthony Diana PA - 11/17/2023 1:58 PM EDT Diabetes Discharge Instructions & Recommendations Check blood sugars when you wake up, before meals, bedtime, anytime you don't feel well. See new doses below for insulin glargine (Basaglar) and Humalog Follow-up with your diabetes provider for insulin adjustments if blood sugars are under 80 or over 200 after discharge. Instructions for insulin glargine (Basaglar) Insulin (LONG ACTING) Please inject Basaglar 40 units every morning. If your fasting blood sugars are above 150mg/dl two days in a row, please increase your Lantus by 2units. If your fasting blood sugars are below 90mg/dl two days in a row, please decrease your Lantus by 2 units. This dose now becomes your new daily dose unless it need to be further adjusted based on future glucose readings. Instructions for insulin lispro (Humalog) Mealtime & Correction Insulin Test your blood sugar ideally 15 minute before you plan to eat. Please inject a base dose of Humalog 10 units with meals. If you are eating a larger meal, please increase your Humalog to 14 units. If you are eating a smaller meal, please decrease your Humalog to 6 units. If you are not eating any carbohydrates or skipping a meal, please skip base dose of Humalog. Based on the scale below, add up the additional units you need for your current blood sugar reading- - this is based on a correction of 1 unit to lower your blood sugar 20 points: BG under 80 Subtract 2 units from your food dose, and eat right away. BG 80 - 100 Subtract 1 unit from your food dose and give just before eating. BG 100 - 160 Give your meal dose only if eating; BG 161 - 180 Give 2 units BG 181 - 200 Give 3 units BG 201 - 220 Give 4 units BG 221 - 240 Give 5 units BG 241 - 260 Give 6 units BG 261 - 280 Give 7 units BG 281 - 300 Give 8 units BG greater than 300, give 9 units and recheck BG in 2 hours. Call your diabetes provider if blood sugar continues over 250 4hrs after correction dose. Treatment of Low Blood Sugar (Hypoglycemia) 15:15 rule - if your blood sugars is under 80, eat 15g of sugar, and recheck your blood sugar in 15minutes. If you continue to be under 80 after 15 minutes, eat 15g of sugar more, and repeat. If BG is over 100 on recheck, no need to consume more sugar, and recheck BG in another 15 minutes. If your BG is lower than 80, you are likely to feel shaky, sweaty and lightheaded. This is a signalthat your body needs more sugar. Quickly eat or drink a 15g of something sweet, such as: 4 ounces fruit juice or regular (not diet) soda 6 lifesavers small box of raisins 4 glucose tablets (~15 gm of glucose) If your BG is very low <50, you can double the amount above or take 30 gm of glucose gel/tablets. Once you are feeling better, try to determine why your BG was so low. Common causes of hypoglycemiainclude skipping a meal, lots of exercise, too much insulin or any combination of these things. Understanding the cause my help you to avoid another low BG in the future. Test blood sugars prior to driving, make sure glucose levels are greater than 100mg/dl. If not havea snack and retest blood sugars in 15 minutes. Carry a glucose source on you at all times. Call your diabetes provider for blood sugars less than 80 or greater than 300 twice in one day to have your insulin doses adjusted. * Patient Instructions* Anthony Diana PA - 11/18/2023 10:17 AM EDT Cardiac Surgery Discharge Instructions: Call your doctor if: You have a fever of greater than 101 degrees, shaking chills, if you develop redness or drainage from your incision sites, or if you have questions. Please call your surgeon's office if you have any discharge or drainage from your chest incision. Your surgeon, Dr. Timi Person and/or the Cardiac Surgery Physician Data Communications Analyst Team may be reached at . Weight: Weigh yourself daily. Please call the office if you notice increasing weight, increasing fluid retention (edema), and/or SOB. Sternal (breast bone) precautions: No lifting greater than 7-10 pounds; no pushing or pulling with upper extremities; no excessive chest stretching for the first 4 weeks. Further instructions will begiven to you at your follow-up appointment. Activity level: Walk three times a day. You should continue to increase your walks by 1-2 minutes each day. It is expected that you will be walking 20-30 minutes twice a day within 3-4 weeks after discharge to home. Rest between activities and after meals. Use common sense, don't exhaust yourself. Biking: You may use a stationary bicycle whenever you are comfortable enough to permit this. Tighten the resistance slightly. Increase the amount of time on the bicycle as you would do for your walks, a minute or two each day. No biking outside until after your return appointment with Dr. Timi Person. You may use a [place] or treadmill but avoid any pulling motion with the arms. Home activities: You may do light housework, e.g. dusting, setting the table, washing dishes, preparing a meal. Light carpentry and gardening are allowed. Avoid trying to open tight jars and stuck windows. No vacuuming, mopping, raking, shoveling, digging or hoeing until after your return visit with the surgeon. Sexual activity: You may engage in sexual activity when you feel ready. Use a position that protects your sternum (breastbone). Do not have your partner lie on your chest. Stairs: There are no restrictions on stair climbing. Use common sense. Don't exhaust yourself. Activities outside the home: After the first week home you may go out to dinner, visit friends, go to a movie, go to orthodoxy, etc. Heavy activities: No hunting, skiing, jogging, snow shoveling, snowmobiling, lawn mowing, swimming,golf or tennis until after your return appointment with the surgeon. Do not ride motorcycles, ATV'stractors or horses. Avoid the use of a rifle with kickback against the shoulder for six months. Sleep: Try to establish normal sleep patterns. Long naps during the day may make it hard for you tosleep at night. Use the pain medication at bedtime for the first week at home. Smoking: It is very important that you not smoke after surgery. Smoking cessation education was provided as appropriate. If you need further assistance with this please call and you will be referred to a smoking cessation specialist. Medications: Take only those medications listed on your discharge information. Keep your pain undercontrol so you can be active, do your coughing and breathing exercises and sleep. Contact us if thepain medication isn't working for you. Do not take any herbal preparations until after you return to see the surgeon. Special Physician Instructions: DO NOT USE ANY IBUPROFEN (ADVIL, MOTRIN, ETC) OR OTHER NSAIDS (NONSTEROIDAL ANTI-INFLAMMATORY DRUGS) FOR A TOTAL OF 10 DAYS AFTER SURGERY. PLEASE CONTACT THE CARDIOTHORACIC SURGERY OFFICE IF YOU HAVE QUESTIONS ABOUT WHICH DRUGS YOU SHOULD NOT USE. . Diet: You should follow a regular diet until your appetite returns to normal. At that point in timeyou should resume a low fat, low cholesterol, [place] Heart Association Diet/Diabetic diet/Renal diet. Driving: No driving until cleared by your surgeon. Avoid long trips if possible. If you must go on a long trip, stop the car and walk every hour. Shower/Bath: You may shower daily. No baths, soaking, or swimming until cleared by your surgeon. Wound care: Wash your incisions daily with soap and rinse well, pat dry. Assess for any signs of infection such as increased redness, pain, warmth or drainage. Please call your surgeon's office if you have any discharge or drainage from your chest incision. If there is a lot of swelling, apply akin wraps during the day and remove at bedtime. Elevate your legs when you are sitting. MEDICATION REFILL REQUESTS - Please note that Cardiac Surgery will not maintain regular refill requests for your medications as these can change during and after your recovery while being managed by your PCP and/or [employer]. For future medication refills, please refer to your PCP and/or [employer]member after your discharge from our service. Thank you REMOVE CHEST TUBE SUTURES ON OR AFTER 11/20/23 Home oxygen therapy: N/A Follow up appointments: You should follow up with your PCP, Bandar Hahn MD, in 1-2 weeks. Our office will schedule an appointment with your [employer]member. You have an appointment with your Cardiac Surgeon, Dr. Timi Person, with a chest x-ray and EKG before your appointment. You have an appointment with Nephrology, Dr. Frey, 11/22 at 4:30pm. Cardiac Rehabilitation: Hayden Russo was seen today regarding participation in the outpatient Phase 2 Cardiac Rehabilitation at [facility]. The patient agrees to a referral to this program. The referral will be sent at discharge and the patient should be contacted by the Program within 1-2 weeks from discharge. documented in this encounter Medications at Time of Discharge Medication Sig Dispensed Refills Start Date End Date Insulin Basaglar KwikPen U-100 100 unit/mL (3 [...] GLUCOSE THREE TIMES DAILY . 11 11/01/2018 atorvastatin (Lipitor) 40 mg tablet Take 1 tablet by mouth every evening for 30 days. Then resume 80mg daily 30 tablet 11/18/2023 12/20/2023 carvediloL (Coreg) 25 mg tabletIndications:Hy pertension, unspecified type,ST elevation myocardial infarction (STEMI), unspecified artery Take 1 tablet by mouth 2 times daily. 180 tablet 3 11/18/2023 11/27/2023 losartan (Cozaar) 100 mg tablet Take 1 tablet by mouth daily. 90 tablet 11/18/2023 11/27/2023 apixaban (Eliquis) 2.5 mg tablet Take 1 tablet by mouth 2 times daily. 60 tablet 5 11/18/2023 12/21/2023 sevelamer carbonate (Renvela) 800 mg tablet Take 1 tablet by mouth 3 times daily (with meals). 90 tablet 11/18/2023 11/27/2023 torsemide (Demadex) 20 mg tablet Take 1 tablet by mouth daily. 90 tablet 11/19/2023 11/27/2023 aspirin 81 mg Tablet, Chewable Take 81 mg by mouth daily. 30 tablet 3 10/15/2018 12/21/2023 documented as of this encounter Progress Notes * Mary Garcia RN - 11/18/2023 1:47 PM EDT Patient alert and sitting intermittently in chair and bed, x1 assist with walker, needs help with lines, steady gait. Patient educated on the importance of pacing himself and to give himself some lore during this time of healing. Patient discharged home with Tammie, friend Emmanuel picked pt up; PIVs removed and tele taken off,all paperwork reviewed with pt and verbalized all understanding. Verbalized all personal belongings present at the time of discharge. * Neftali Heath MD - 11/18/2023 1:39 PM EDT Renal attending note: 47-year-old male with DONAL on CKD (baseline creatinine~2.5 mg/dL), required recent renal replacementtherapy with CVVH which has been discontinued. patient is nonoliguric and creatinine continues to to slightly uptrend. Defer to the cardiology team at this point for ongoing diuretics. Patient does have bilateral lower extremity edema and would encourage him to move around as possible to help mobilize this as well. He has no acute indication for renal replacement therapy at this time. We will continue to monitor bicarb which appears to be downtrending. He continues to be anemic, he is receivingESA as well as p.o. iron supplementation. Phosphorus is acceptable. Encourage good p.o. intake. * Venus Yost OT - 11/18/2023 10:49 AM EDT Occupational Therapy Treatment Note Treatment Number OT: 4 Patient profile: Hayden Albrecht is a 47 y.o. male admitted on 10/30/2023 with a history of ASCVD presenting with inferior STEMI s/p RCA PCI 2018 with recurrent RCA closures and repeat PCI (most recently July 2023), ischemic cardiomyopathy (LVEF 45%, RV dysfunction), poorly controlled IDDM2, chronic renal insufficiency (baseline creatinine in 2s), BMI 42, HTN, HLD, TUD in remission who is now s/p planned 3vCABG (GREEN[place]OD-LAD, SVG-OM2, SVG-RPDA) with Dr. Person on 10/30/23 with post-op course complicated by RV failure, cardiogenic shock, severe hypoxic respiratory failure and acute kidney injury on CKD. Social History: Patient lives with his and tabby cat. Home Setup: 2nd floor apartment with FOS to enter. Has tub/shower combo in bathroom with shower hose DME: walker and cane; will pickling machine operator shower seat on way home Baseline ADL/Mobility: Independent with ADLs and functional mobility. 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 Precautions/Special Considerations: Full code. Risk for falls. sternal precautions: no lifting >5-10 lbs.; no pushing or pulling with UE's; no excessive chest stretching, hug a pillow or cross your arms when you stand or sit, no driving until cleared by your surgeon. Interval History: up with nursing to bathroom and use of walker S: This is all good info. I need to stop and breath and take breaks and that's ok Alina present at bedside, pt and noting they are leaving to go home today O: Patient seen for skilled OT treatment, and demonstrated the following: Self-care: Up to EOB to prep for need to progress to bathroom for toileting for BM. Discussed strategies for breathing and exhalation (not holding breath) during exertion of sit to stand. Low surface toilet sitto stand with verbal cues and rock with count to stand without use of hands. Dressing while seated on EOB: Donned shirt with increased time and rest break post toileting prior to progressing to LB dressing Seated EOB, used middle school spanish teacher to assist with LB dressing with verbal cues and strategies for ease of performance and reducing activity exertion. Reinforced sternal precautions with energy conservation strategies to maximize efficiency of tasks and movement. Functional Mobility: Supine to sit - verbal cues and CGA for effective follow through with instruction to and to help prevent pt from using too strong a push from supine (HOB was slightly elevated) Sit to stand from bed with FWW (chair height and bed to max inflate) with SBA. Stand to sit with control to toilet; assisting with hygiene Sit to stand from toilet with verbal cues and talk through to ensure safe, progressive follow through; instructed on pelvic tuck in standing and to ensure he fully stands before attempting to manage pants. Stabilize before trying to add to the task (ie pulling pants up) Sat to EOB, performed UB dressing with breaks post toileting and before attempting LB dressing, then LB dressing with use of middle school spanish teacher and 2-3 x sit to stand to manage pants and then side step to return to supine with Supervision of sit to supine Cognition: Behavior / Mood: alert and cooperative Alert and oriented to: person, place, time, and situation Follows commands: 1-2 step, paced activity and talked through pacing with reasoning to help task carryover and ID benefit of breathing breaks, rest and recovery before next task. Attention: WFL; pts also present and helping to reinforce strategies Safety awareness: Fair to good, initially with reminders and pt able to verbalize next steps and adding in pacing Pleasant and willing Vision: no acute changes Endurance: Impaired. Requires frequent rest breaks Vitals: stable HR in 70s at rest; with activity did increase into 90s Strength/ROM: deconditioned but improving Pain: no pain noted, mostly fatigue; does endorse edema in B feet Education: Pt/family/caregiver education ongoing regarding: Role of occupational therapy/rehabilitation, Transfers, Adaptive equipment training, ADL, Breathing exercises, Positioning, Safety, Precautions/Protocol, Functional Mobility, Activity pacing/Energy conservation, Balance, Recommendations, and Family training. Staff Communication: Patient status, treatment, and mobility recommendations discussed with nursing/other staff. ASSESSMENT: Pt seen per OT POC and continuing to make progress with self cares as well as endurance. Endurance is greatest limiting factor at this point and will highly benefit from Cardiac Rehab. Ambrocio sat up to EOB to engage in toileting, dressing and activity pacing strategies with present at bedside as they are anticipated to discharge later today. Ambrocio was willing and paced self after cues initially and would then verbally reinforce and attempt to follow through throughout the dressingactivities. Ambrocio will have assist from at home as needed and will benefit from home PT/OT after discharge home with transition to Cardiac Rehab outpatient program near his home. Equipment needs at discharge: received middle school spanish teacher and sock aid, walker and will obtain bath seat for home to use as needed (for use when fatigued) Anticipated Discharge Disposition: home with supervision, home with home health Daily schedule / Staff Recommendations: Open shades and turn on lights during the day/lights off at night, Set-up patient with ADL tasks, allow patient to complete ADL tasks as independently as possible Assist patient to the toilet (no bed brooks) Provide choices as able, encourage safe coping skills (such as music, reading, coloring, word search, journaling) Have patient sit up in recliner during the day as much as possible Sit upright for all meals Ambulate as tolerated Goals: To be achieved by 11/27/23. Pt will demonstrate independence with precautions/restrictions during ADLs. - ongoing Pt will perform standing ADLs with CGA only and least restrictive assistive device. - MET Pt will complete LB dressing with Min A and adaptive technique/equipment as needed. - MET Pt will complete UB dressing with CGA and compensatory strategies as needed. - MET Pt will ambulate with Min A to the toilet and least restrictive assistive device. - goal met Patient will complete luis miguel-care and clothing management with Min A with adaptive equipment as needed and least restrictive assistive device. - ongoing Spouse will demonstrate and state safe techniques to assist and care for the patient and limit harmto themself. - MET and ongoing Therapy Frequency (OT): discharge to home, follow up with cardiac rehab Total Minutes, Occupational Therapy: 50 ([phone] [facility] x 3) Pager: [phone] Venus Yost, BATSHEVAD, OTR/L 11/18/2023 Occupational Therapy Rehabilitation Department * Sj Salomon, WOOL CARDER - 11/18/2023 10:40 AM EDT Physical Therapy Note 6 Patient profile: Hayden Russo is a 47 y.o. male with CAD who is 16 Days Post-Op CABGx3. PMH of inferior STEMI s/p PCI, IDDM2, HTN, HLD, CKD, former smoker. Interval History: NAEON Social History: Pt lives with in an apt with FOS to enter, they have a walker and a cane if needed. Precautions/Special Considerations:Sternal precautions ( No pushing, no pulling, no lifting >8-10 lbs) Mobility and Positioning Recommendations: Pt to utilize FWW and 1 assist for transfers and ambulation w/ manager staffing as able, would benefit froma chair follow for rest breaks. Please encourage up to chair for meal times as able. Subjective: I just worked with OT I'm exhausted Objective: Patient seen for physical therapy and demonstrated the following: Pt initially supine in bed and just finished work with OT prior to PT session, however pt agreeableto work with PT. at bed side Pain: Pt reported some pain at sternal incision site but did not rate, did not limit participation w/ therapy Vital Signs: At Rest With Activity HR 80s bpm Up to 85 bpm Cognition/Vision: Pt was alert and cooperative w/ therapy Bed Mobility: Supine to Sit: Min A with flat bed to R side of bed, min cues for log rolling to maintain sternal precautions. Sit to Supine: CGA with flat bed, no use of UEs, min cues fir log rolling. Transfers: Sit to Stand: Performed from EOB x1 with SBA ,from visitor black chair x1 with min A, no use of UEs. Using FWW Stand to Sit: CGA, no use of UEs, fair eccentric control. Bed to Chair: NA Gait: Distance: 25 ft (room to stairs) + 25 ft (stairs to room) Device used: rolling walker Level of assist: SBA, line management, chair follow Gait mechanics: fair gait speed, step length and foot clearance, no overt LOB noted Stairs: Up/down 10 steps with one rail, side step up/down with BUEs on rail, required long seated rest break at top of stairs due to exhausted and SOB, no LOB noted, CGA Balance: Sitting Static: Good Sitting Dynamic: Good Standing Static: Fair w/ FWW Standing Dynamic / Gait: Fair w/ FWW Education: Pt and have been educated on importance of continued participation w/ therapy and mobilization OOB, transfer training, gait training, energy conservation, therex, sternal precautions Pt left supine in bed, with all needs met, with call tenorio in reach, and with family at the bedside RN aware following visit. Assessment: Hayden Russo was seen today for physical therapy treatment session for continuation of POC. Pt alert and cooperative throughout. However pt just worked with OT prior to PT session.He reported that feeling tired but willing to work on mobility assessment with PT today. During rx session, pt required min A to CGA and cues for sternal precautions for bed mobility and required CGA-min A when standing from lower surfaces. Pt was able to complete stair training with good effort but required x1 long seated rest break due to fatigue and SOB. HR stable throughout. He is very motivated but was limited by fatigue and decreased endurance today. Encouraged pt to keep mobilizing oftenw/ manager staffing and mobility techs to maximize activity tolerance and functional mobility, and he wouldbenefit from reinforcement of all sternal precautions for safety. Based on current presentation, anticipate he will be able to safely d/c home w/ VNA PT and assistance from family members. Will continue to work w/ pt while in-house to progress towards functional goals. Pt will benefit from ongoing therapeutic interventions to achieve therapy goals. Inpatient Physical Therapy Plan: Monitor (Pt is cleared for home from PT 11/17) for reinforcement ofsternal precautions, balance, stairs and bed mobility. Discharge Recommendations: Based on current findings- home with home health, home with supervision when medically ready Consult Recommendations: No other consults recommended at this time. Equipment needs: None (Pt has a FWW at home) Physical Therapy Goals: To be achieved by 11/24/2023 Pt. to demonstrate knowledge of safety limitations and precautions and will appropriately request assistance for functional activities as appropriate. Pt able to complete functional activities with tolerable level of pain and stable vital signs. Pt. to demonstrate understanding of appropriate stretching and strengthening exercises. Pt. to perform bed mobility with min A. Pt. to perform sit to stand transfers with supervision using a front wheeled walker. Pt. to ambulate 100 ft with CGA using a a front wheeled walker. Pt to perform FOS, 1 railing w/ supervision Total Time: 20 (0266-7010) minutes; TEFx1 Sj Salomon PTA Pager: [phone] Physical Therapy Inpatient Rehabilitation Department * ElviraVilma Joana, OT - 11/17/2023 12:48 PM EDT Occupational Therapy Treatment Note Treatment Number OT: 3 Patient profile: Hayden Russo is a 47 y.o. male admitted on 10/30/2023 with a history of ASCVDpresenting with inferior STEMI s/p RCA PCI 2018 with recurrent RCA closures and repeat PCI (most recently July 2023), ischemic cardiomyopathy (LVEF 45%, RV dysfunction), poorly controlled IDDM2, chronic renal insufficiency (baseline creatinine in 2s), BMI 42, HTN, HLD, TUD in remission who is now s/p planned 3vCABG ([facility]-LAD, SVG-OM2, SVG-RPDA) with Dr. Person on 10/30/23 with post-op course complicated by RV failure, cardiogenic shock, severe hypoxic respiratory failure and acute kidney injury on CKD. Social History: (pt and CM note) Patient lives with his and tabby cat. Home Setup: a2nd floor apartment with FOS to enter. DME: walker and cane Baseline ADL/Mobility: Independent with ADLs and functional mobility. 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 Precautions/Special Considerations: Full code. Risk for falls. sternal precautions: no lifting >5-10 lbs.; no pushing or pulling with UE's; no excessive chest stretching, hug a pillow or cross your arms when you stand or sit, no driving until cleared by your surgeon. Risk for delirium. Central line. Interval History: ambulated up/down stairs with PT prior to OT visit today S: Im learning that I need to listen to my body. I should have done that a long time ago O: Patient seen for skilled OT treatment, and demonstrated the following: Self-care: Stood with walker with single-handed support to pickling machine operator tissue from floor using middle school spanish teacher with CGA Dressing while seated on EOB: Donned shirt with increased time needed and rest break. Donned underpants and shorts with min A for orientation of item, cues for technique (use of middle school spanish teacher) and pacing, and CGA for hike of pants while standing unsupported in FWW. Socks and sneakers not fitting currently d/t LB edema. Pt educated in basic energy conservation methods and provided handouts. Introduced Modified Corey Scale of Perceived Exertion. Pt with 6/10 fatigue at rest at start of session. Fatigued increased to 8/10 during activity with pacing/breathing strategies. Functional Mobility: Sit to stand: CGA and cues to scoot to edge of seat before initiating sit to stand. Using momentum to build-up (rocking 3x) to FWW Ambulated in room ~10' with seated rest and then another ~6' to bed with CGA with FWW, reporting lightheadedness Stand to sit: Min A with poor eccentric control Pt returned to recliner with B feet elevated, pillows for comfort. Call light within reach. Cognition: Behavior / Mood: alert and cooperative Alert and oriented to: person, place, time, and situation Follows commands: 2 step and requires repetition of directions/verbal cueing 2/2 being overwhelmed Attention: requires cues to redirect Safety awareness: Fair, requires intermittent reminders for sternal precautions Pleasant and willing Vision: no acute changes Endurance: Impaired. Requires frequent rest breaks Vitals: post mobility: At rest: BP (MAP) 11/65 (79) HR 79 Spo2 94% on RA After activity: BP (MAP) 127/70 (86) HR 80 SPo2 95% on RA Strength/ROM: deconditioned but improving Pain: Generalized aches and pain From not moving Education: Pt/family/caregiver education ongoing regarding: Role of occupational therapy/rehabilitation, Transfers, Adaptive equipment training, ADL, Breathing exercises, Positioning, Safety, Precautions/Protocol, Functional Mobility, Activity pacing/Energy conservation, Balance, Recommendations, and Family training. Staff Communication: Patient status, treatment, and mobility recommendations discussed with nursing/other staff. ASSESSMENT: Pt seen per OT POC and is making good progress towards OT goals. He demonstrates good self-motivation to progress. He continues to require intermittent rest breaks for fatigue levels between 6-8/10 and reports lightheadedness with standing tasks. Vital signs improving and is not within n ormal range at rest and during activity. 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 LB edema preventing pt from wearing footwear at this time. Pt will benefit from ongoing therapeutic interventions to achieve pt's and therapy goals. Ambrocio will benefit from home PT/OT after discharge home with transition to Cardiac Rehab outpatient programnear his home. Equipment needs at discharge: to be determined Anticipated Discharge Disposition: home with supervision, home with home health Daily schedule / Staff Recommendations: Open shades and turn on lights during the day/lights off at night, Set-up patient with ADL tasks, allow patient to complete ADL tasks as independently as possible Assist patient to the toilet (no bed brooks) Provide choices as able, encourage safe coping skills (such as music, reading, coloring, word search, journaling) Have patient sit up in recliner during the day as much as possible Sit upright for all meals Ambulate as tolerated Goals: To be achieved by 11/27/23. Pt will demonstrate independence with precautions/restrictions during ADLs. Pt will perform standing ADLs with CGA only and least restrictive assistive device. Pt will complete LB dressing with Min A and adaptive technique/equipment as needed. Pt will complete UB dressing with CGA and compensatory strategies as needed. Pt will ambulate with Min A to the toilet and least restrictive assistive device. - goal met Patient will complete luis miguel-care and clothing management with Min A with adaptive equipment as needed and least restrictive assistive device. Spouse will demonstrate and state safe techniques to assist and care for the patient and limit harmto themself. Therapy Frequency (OT): 2-4 times/wk Total Minutes, Occupational Therapy: 46 ([phone] 5 co) Pager: [phone] Vilma Felix OT 11/17/2023 Occupational Therapy Rehabilitation Department * He Styles PA - 11/17/2023 10:04 AM EDT Cardiac Surgery Progress Note Hayden Russo is a 47 y.o. male with CAD who is 18 Days Post-Op CABGx3. PMH of inferior STEMI s/p PCI, IDDM2, HTN, HLD, CKD, former smoker. 24h Events: HD line removed Given lasix holiday, made 1.2L of urine, net neg 650cc in 24h, Cr down to 3.1 from 3.5, BUN and lytes stable Increased BB for HTN DM team increased lantus and I:C ratio Stopped Seroquel, added trazodone for sleep S: Had a good day yesterday. Ambulating more. Slept the best he has in a week last night. Tolerating diet. +BM x2 this morning. Pain controlled. Feels ready to go home. O: Temp: [36.6 ??C (97.9 ??F)-36.9 ??C (98.5 ??F)] Heart Rate: [80-107] Resp: [16-22] BP: (109-176)/(68-81) SpO2: [91 %-96 %] Heart Rate from SpO2: -- 11/15 0701 - 11/16 0700 In: 550 [P.O.:550] Out: 1200 [Urine:1200] Admit weight: 128.91 kg Current weight: Weight: 118.3 kg (260 lb 14.4 oz) Physical Exam: General: no acute distress, OOB to chair Pulm: non-labored, diminished bases bilat Cardiac: tachy, regular, without murmur/gallop/rub, ST on tele Vascular: warm, 1+ LE edema Abd: non-tender, non-distended, active bowel sounds MSKL: sternum stable Neuro: Awake and alert, no focal deficits Integ: incisions clean, dry, intact Tubes/Lines/Drains: ALYSON Todd Assessment/Plan: 47 y.o. male 18 Days Post-Op CABGx3 MV CAD s/p CABGx3 Acute HFrEF, LVEF 40-50%, Mod RV Dysfunction ASA / Plavix / Eliquis Statin Increase Coreg to 25 BID Losartan 100 daily Diuresis PT / OT, rec acute rehab but likely will clear for home Post operative acute hypoxemic respiratory failure Weaned to RA IS/OOB Sputum, BC NGTD Completed 6 days zosyn Scheduled duonebs q6h while awake PA&Lat CXR today Post operative atrial fibrillation related to cardiac surgery NSR Amio 200 BID Coreg Eliquis 2.5 BID (low dose in setting of triple therapy) Acute on chronic renal insufficiency Hyperkalemia (resolved) Hyperphosphatemia Hypocalcemia Vit D deficiency CRRT discontinued POD 14 Daily assessment for iHD needs (not required yet) HD line removed, if ends up needing HD will consult IR for tunneled line UOP stable, Cr improving with lasix holiday yesterday Will discuss with renal if holding diuretic again today vs starting po regimen Daily BMPs D/C Todd, strict I's/O's Nephrology following, appreciate recs Vitamin D 50k weekly Age indeterminate right peroneal DVT B/l LE duplex 11/02 with age indeterminate right peroneal DVT ASA/Plavix/Eliquis 2.5 BID (low dose in setting of triple therapy) Acute hypertriglyceridemia While on propofol Recheck triglycerides if propofol restarted Acute post-op blood loss anemia Anemia of CKD Transfused 1 unit 11/03 and 11/04, 11/06 Continue Epogen 10k 3 times weekly Daily CBC Iron labs c/w chronic anemia HTN Cozaar 100 daily Increase Coreg to 25 BID T2DM Sick Euthyroid state Recent A1c 11.2, repeat 9.5 Lantus 48U daily DM following, appreciate recs, custom q4h correction scale Carb control diet ordered No thyroid replacement necessary, repeat labs in 4-6 weeks Insomnia Seroquel stopped Cont trazodone qhs Pt does not tolerate melatonin VS q4h while awake Dispo: L4WA, full code Discussed with attending surgeon on rounds this morning. 11/17/2023 Between the hours of 1800 - 0600 and on the weekends please page [phone]. * Annalisa Nieto PTA - 11/17/2023 10:00 AM EDT Physical Therapy Note 5 Patient profile: Hayden Russo is a 47 y.o. male with CAD who is 16 Days Post-Op CABGx3. PMH of inferior STEMI s/p PCI, IDDM2, HTN, HLD, CKD, former smoker. Interval History: Per last cardiac surgery note on 11/17/2023 HD line removed Given las holiday, made 1.2L of urine, net neg 650cc in 24h, Cr down to 3.1 from 3.5, BUN and lytes stable Increased BB for HTN DM team increased lantus and I:C ratio Stopped Seroquel, added trazodone for sleep Social History: Pt lives with in an apt with FOS to enter, they have a walker and a cane if needed. Precautions/Special Considerations:Sternal precautions ( No pushing, no pulling, no lifting >8-10 lbs) Mobility and Positioning Recommendations: Pt to utilize FWW and 1 assist for transfers and ambulation w/ manager staffing as able, would benefit froma chair follow for rest breaks. Please encourage up to chair for meal times as able. Subjective: If I do well, could I go home today? Objective: Patient seen for physical therapy and demonstrated the following: Pain: Pt reported 3/10 pain at sternal incision site, did not limit participation w/ therapy Vital Signs: At Rest With Activity SpO2 (RA) 93% 94% BP (MAP) 100/78 (87)mmHg mmHg HR 90bpm 100bpm Cognition/Vision: Pt was alert and cooperative w/ therapy, slightly anxious surrounding movement and hospital stay Bed Mobility: Supine to Sit: N/A, pt deferred Sit to Supine: N/A Transfers: Sit to Stand: contact guard assist, Performed from recliner chair 1x, from toilet 1x, from black visitor chair 4x, cues for sternal precautions needed, posterior LOB noted when standing from lower surfaces, requiring minAx1 to correct using rolling walker Stand to Sit: contact guard assist, cues for sternal precautions, eccentric control varied using rolling walker Gait: Distance: 15 ft + 40 ft + 60 ft, stair training, 10 ft Device used: rolling walker Level of assist: contact guard assist, line management, chair follow Gait mechanics: fair gait speed, step length and foot clearance, no overt LOB noted Stairs: 9 stairs performed w/ B railings, ascending and descending w/ step-to gait pattern, required seated rest break at top of stairs, no overt LOB noted, performed w/ CGAx1 Balance: Sitting Static: Good Sitting Dynamic: Fair Standing Static: Fair w/ FWW Standing Dynamic / Gait: Fair w/ FWW Education: Pt educated on importance of continued participation w/ therapy and mobilization OOB, transfer training, gait training, energy conservation, therex, sternal precautions Pt left in wheelchair and with all needs met transpo bringing pt to x-ray, RN aware following visit. Assessment: Hayden Russo was seen today for physical therapy treatment session for continuation of POC. Pt endorsed some anxiety surrounding his hospital stay and mobilizing, however was very motivated and agreeable to work w/ therapy. Pt required cues for sternal precautions throughout the session when standing from all surfaces, and did demonstrate posterior LOB w/ every stand. Encouraged pt to keep mobilizing often w/ manager staffing and mobility techs, and he would benefit from reinforcement of all sternal precautions for safety. Based on current presentation, anticipate he will be able to safely d/c home w/ VNA PT and assistance from family members. Will continue to work w/ pt while in-house to progress towards functional goals. Pt will benefit from ongoing therapeutic interventions to achieve therapy goals. Inpatient Physical Therapy Plan: 1-3 more times for reinforcement of sternal precautions, balance, stairs and bed mobility. Discharge Recommendations: Based on current findings- home with home health, home with supervision Consult Recommendations: No other consults recommended at this time. Equipment needs: to be determined (May benefit from FWW) Physical Therapy Goals: To be achieved by 11/24/2023 Pt. to demonstrate knowledge of safety limitations and precautions and will appropriately request assistance for functional activities as appropriate. Pt able to complete functional activities with tolerable level of pain and stable vital signs. Pt. to demonstrate understanding of appropriate stretching and strengthening exercises. Pt. to perform bed mobility with min A. Pt. to perform sit to stand transfers with supervision using a front wheeled walker. Pt. to ambulate 100ft with CGA using a a front wheeled walker. Pt to perform FOS, 1 railing w/ supervision Time IN / OUT: 1172-8030 Total Time: 26 minutes; TEF 2 Annalisa Nieto PTA Pager: [phone] Physical Therapy Inpatient Rehabilitation Department * Iman Delatorre, RD - 11/17/2023 9:53 AM EDT Nutrition Progress Note Hayden Russo is a 47 y.o. male with a PMH of inferior STEMI s/p PCI, IDDM2, HTN, HLD, CKD, former smoker. S/p CABGx3. Reason for Assessment: Follow-up Nutrition Recommendations: CHO level 2 (regular solids, thin liquids per RESEARCH STATISTICIAN recs 11/12) Monitor and encourage po intake - please document % po Glucerna BID High protein snacks list provided Monitor BM Mg and phos with daily labs Daily weights Current Nutrition Regimen: Active Orders Diet Carb Control diet 60/60/75 CHO counting level 2 Frequency: Effective Now Number of Occurrences: Until Specified Assessment: Lab Results Component Value Date NA 139 11/17/2023 NA 138 09/22/2023 K 4.2 11/17/2023 K 4.9 09/22/2023 CL 102 11/17/2023 CL 106 09/22/2023 CO2 23 11/17/2023 CO2 22 09/22/2023 BUN 45 (H) 11/17/2023 BUN 34 (H) 09/22/2023 CREATININE 3.10 (H) 11/17/2023 CREATININE 2.83 (H) 09/22/2023 ESTGFR 27 (L) 09/22/2023 MAGNESIUM 0.86 11/17/2023 MAGNESIUM 0.98 06/07/2023 CALCIUM 8.8 11/17/2023 CALCIUM 9.3 09/22/2023 PHOS 4.2 11/17/2023 AST 47 (H) 11/11/2023 AST 19 09/22/2023 ALT 39 11/11/2023 ALT 18 09/22/2023 ALKPHOS 142 (H) 11/11/2023 ALKPHOS 97 09/22/2023 BILITOT 0.3 11/11/2023 BILITOT 0.3 09/22/2023 BILIDIR <0.2 11/11/2023 BILIDIR 0.1 09/22/2023 TRIG 464 11/03/2023 TRIG 405 06/05/2023 HA1C 9.5 (H) 10/31/2023 HA1C 11.2 (H) 06/05/2023 25OHVITD 9 (L) 11/04/2023 IRON 27 (L) 11/15/2023 Lab Results Component Value Date POCGLU 160 11/17/2023 POCGLU 155 11/17/2023 POCGLU 152 11/17/2023 POCGLU 262 (H) 11/16/2023 POCGLU 274 (H) 11/16/2023 POCGLU 156 11/16/2023 POCGLU 214 (H) 11/16/2023 Patient Lines/Drains/Airways Status Active Nutritional LDAs Name Placement date Placement time Site Days PIV 11/16/231814 22 gauge;1 in length cephalic vein (lateral side of arm), left 11/16/231814 -- 1 Oxygen Therapy / Airway Device: None (Room air) Shift Pressure Injury Prevention Occiput: No Injury Thoracic Spine: No Injury Sacral: No Injury Ischial - left: No Injury Ischial - right: No Injury Heel - left: No Injury Heel - right: No Injury Elbow - left: No Injury Elbow - right: No Injury Device Sites: ECG Leads, IV sites, O2 sat monitor, BP Cuff Other Sites: IDB Last Bowel Movement: 11/16/23 Intake/Output Summary (Last 24 hours) at 11/17/2023 0953 Last data filed at 11/17/2023 0800 Gross per 24 hour Intake 800 ml Output 1100 ml Net -300 ml Relevant medications: Continuous Scheduled carvediloL 25 mg Oral BID WC traZODone 50 mg Oral Nightly ipratropium-albuteroL 3 mL Nebulization Q6H While awake aspirin 81 mg Oral Daily acetaminophen 975 mg Oral Q6H [facility] insulin lispro 0-15 Units Subcutaneous TID insulin glargine (Lantus;Semglee) (100 unit/mL) subcutaneous injection 48 Units Subcutaneous Q24H [START ON 11/18/2023] ergocalciferoL (vitamin D2) 50,000 Units Oral Weekly sevelamer carbonate 800 mg Oral TID sodium chloride 0.9 % (flush) 5 mL Intravenous Q8H citalopram 10 mg Oral Daily losartan 100 mg Oral Daily ferrous sulfate EC 325 mg Oral Daily with breakfast apixaban 2.5 mg Oral BID AMIOdarone 200 mg Oral BID atorvastatin 40 mg Oral QPM insulin lispro 1-11 Units Subcutaneous Q4H [facility] epoetin sha-epbx 10,000 Units Subcutaneous Once per day on Monday vitamin B Complex-vitamin C-folic Acid 1 tablet Oral Daily clopidogreL 75 mg Oral Daily pantoprazole EC 40 mg Oral Daily Or pantoprazole 40 mg Intravenous Daily senna-docusate 2 tablet Oral Daily lidocaine 1 patch Transdermal Q24H PRN glucose 40% oral geL OR dextrose OR glucagon, hydrALAZINE, sodium chloride 0.9%, ondansetron, bisacodyL, HYDROmorphone OR HYDROmorphone, HYDROmorphone Anthropometrics: Admit Weight: 128.91 kg Estimated body mass index is 37.44 kg/m?? as calculated from the following: Height as of this encounter: 177.8 cm (5' 10). Weight as of this encounter: 118.3 kg (260 lb 14.4 oz). [place] Body Weight (IBW) (kg): 75.45 Wt Readings from Last 10 Encounters: 11/17/23 118.3 kg (260 lb 14.4 oz) 09/22/23 123.3 kg (271 lb 14.4 oz) 09/12/23 122.1 kg (269 lb 3.2 oz) 08/04/23 121.2 kg (267 lb 4.8 oz) 06/07/23 118.5 kg (261 lb 3.9 oz) 11/27/18 99.8 kg (220 lb) 10/14/18 99.8 kg (220 lb 0.3 oz) Patient Vitals for the past 168 hrs: Weight 11/17/23 0410 118.3 kg (260 lb 14.4 oz) 11/16/23 0140 119.7 kg (263 lb 12.8 oz) 11/15/23 0600 121.6 kg (268 lb 1.3 oz) 11/14/23 0625 117.1 kg (258 lb 2.5 oz) 11/13/23 0200 122.1 kg (269 lb 2.9 oz) 11/12/23 0615 124.1 kg (273 lb 9.5 oz) 11/11/23 0600 125.9 kg (277 lb 9 oz) Weight Source: Standing Scale Estimated / Assessed Needs: Kcal / K - 2342 Kcal (16 Kcal/Kg - 20 Kcal/Kg) Estimated Protein Needs: 113 g - 151 g (1.5 g/Kg - 2.0 g/Kg IBW) Nutrition intake and intake history / interview: 11/16: Followed up with pt today. Pt reports appetite to be OK He reports consuming 50% of 3 meals/day.3 day average 1,152 kcal and 55g protein. This meets 30% and 24% of lower estimated calorie andprotein needs.Reports having Glucerna at home sometimes. Pt open to receiving ONS while admitted; He states he does not think he will be here for much longer; trying to DC today. PT reports wanting to make changes to his diet; open to education prior to discharge. Reports BM recently were popcorn. Weight continues to trend down, lasix noted. Weight positive given total output. 11/13: TF discontinued yesterday and CRRT stopped. Visited with Ambrocio and his this morning, reports feeling tired - visit kept short. He reports a good appetite today. He had half the scrambled eggs, 2 sausage links, an orange, and most of the toast for breakfast today. Reports some abd pain r/tfrequent BMs (receiving liquid tylenol). Encouraged good po/protein intake for healing. Declines standing snacks at this time. 11/08: TF at goal. Continues on CRRT. BM output increasing, liquid meds noted. 11/06: Per team, starting CRRT today - updated TF recs. 11/05: TF at goal. Off propofol, TG of 464. Started on CRRT, held today. LBM 11/02. 11/02: Consulted for TF recs. Per team, starting trickle TF today. NPO x 5 days. Nutrition Focused Physical Exam: Not performed Reason NFPE Not Performed: Patient not available at time of assessment. Malnutrition Diagnosis: Not enough data to assess (Sharri et al, JPEN J Parenteral Enteral Nutr. 2011; 36(3): 273-83) Nutrition to continue to follow up while inpatient Thank you, Iman Delatorre, MPH, RD, LD Clinical Nutrition * Becky Lucas RN - 11/17/2023 8:54 AM EDT During VAS Purposeful Rounding, an assessment of your patient's venous access was performed fby theVascular Access Service. The following tasks were performed if needed and communicated to the bedside RN Choose all that apply: [] PIV(s) checked for patency if daily need for flush needs to be performed [] CVAD was checked for patency if daily flush needs to be performed [] IV tubing clamped or capped if needed [] Visual inspection of your patient's central line dressing integrity [x] Review of indications for vascular access [] A photo was taken of your patient's [...] changed if needed (either PRN or weekly) [] Other * iMchelle Pretty, FARM EQUIPMENT OPERATOR - 11/16/2023 3:07 PM EDT Glucose Management Team Inpatient Progress Note HPI Hayden Russo is a 47 y.o. male from [place], [place], with PMH significant for ASCVD-CAD (2019 STEMI w/PCI - RCA stent, then occluded and re-stented 05/2023), CKD (eGFR 33), Pancreatitis w/hospitalization ~05/2023, IDDM2 poorly controlled (A1c 9.5% 10/2023), who was admitted on 10/30/2023 currently being treated for re-occlusion of stents, now s/p 10/29 CABG X3. Original consult completed: 10/31/2023 Patient Interview & Updates BG continue above target. Eating 20-40g CHO/meal Objective Temp: [36.8 ??C (98.3 ??F)-37.8 ??C (100 ??F)] Heart Rate: [95-112] Resp: [19-28] BP: (131-171)/(64-87) SpO2: [89 %-97 %] Heart Rate from SpO2: -- Wt Readings from Last 3 Encounters: 11/16/23 119.7 kg (263 lb 12.8 oz) 09/22/23 123.3 kg (271 lb 14.4 oz) 09/12/23 122.1 kg (269 lb 3.2 oz) Current Regimen from Yesterday Insulin glargine 44 QD at 1800 Lispro for Correction: Custom 1:15 >140 Q4hrs for supper: Lispro for Meals: 1 unit for every 7g carbohydrate (range 0-11u); Hold if NPO or BG <70. Monitoring: BG Q4hrs Diet: Carb Controlled 60/60/75g Relevant Meds: Prior: 10/29 1811 - D10 w/10u Regular insulin for hyperkalemia; Norepinephrine in D5% 10/29-0003 10/30);Epinephrine in D5%; Milrinone in D5%; chlorothiazide in D5; Dopamine in D5% (11/05-11/08); Chlorothiazide in D5%(intermittent doses); TF (stopped 11/13) TDD: 11/14: 88u (48u basal, 14u meal, 26u correction) - 4u correction overnight 11/13: 77u (40u basal, 11u meal, 26u correction) - 8u correction overnight 11/12: 74u (40u basal, 15u TF, 5u meal, 14u correction) 11/11: 60u (40u basal, 19u TF, 0u meal, 1u correction) Recent Glucose Levels Recent Labs 11/16/23 1117 11/16/23 0816 11/16/23 0622 11/16/23 0307 11/16/23 0025 11/15/23 2000 11/15/23 1611 11/15/23 1205 11/15/23 0822 11/15/23 0352 11/15/23 0001 11/14/23 2041 POCGLU 214* 178 141 147 102 233* 208* 210* 154 238* 153 221* ASSESSMENT Hayden Russo is a 47 y.o. years old male with PMH significant for IDDM2 (Last A1C of 11.2% 05/2023) who was admitted on 10/30/2023 for re-occlusion of stents, now s/p 10/29 CABG X3. Diabetes poorlycontrolled and complicated by acute illness. Currently variable blood glucose levels while hospitalized requiring adjustment of insulin regimen and DM medications. Ambrocio continues eating well, and BG are over 140 overnight and >200 after meals. Plan to increaseglargine today to 48u and increase meal insulin to 1:5g ICR at supper. He will need new insulin dosing at discharge, so DC instructions drafted below. Team updated with recommendations. RECOMMENDATIONS: INCREASE Insulin glargine 48 QD at 1800 Lispro for Correction: Custom 1:15 >140 Q4hrs INCREASE for lunch: Lispro for Meals: 1 unit for every 5g carbohydrate (range 0- 13u); Hold if NPO or BG <70. Monitoring: BG Q4hrs Diet: Carb Controlled 60/60/75g Discharge Planning/salvage determiner diabetes care: Medications - Outpatient treatment regimen recommendations pending based on the hospital course. Home: Confirmed 11/12 Farxiga 10mg QD - likely restart at discharge. Insulin glargine (Basaglar) 56u QD - discharge on hospital dose Humalog 20-30u TID w/meals - Needs meal base dose with correction scale. No Ozempic since May d/t pancreatitis. Monitoring BG tid ac & hs Follow-up: PCP 35 minutes were spent over the course of the day with this patient encounter including time spent in chart review and relevant lab result review, assessment of and counseling with the patient on diabetes and treatment plan, reviewing all glucose and insulin data, and coordination with the consulting service. Michelle Pretty APRN, DNP, -[facility] Inpatient Diabetes Management Team Team pager #[phone] (DRAFT) Diabetes Discharge Instructions & Recommendations Check blood sugars when you wake up, before meals, bedtime, anytime you don't feel well. See new doses below for insulin glargine (Basaglar) and Humalog Follow-up with your diabetes provider for insulin adjustments if blood sugars are under 80 or over 200 after discharge. Instructions for insulin glargine (Basaglar) Insulin (LONG ACTING) Please inject Basaglar 40 units every morning. If your fasting blood sugars are above 150mg/dl two days in a row, please increase your Lantus by 2units. If your fasting blood sugars are below 90mg/dl two days in a row, please decrease your Lantus by 2 units. This dose now becomes your new daily dose unless it need to be further adjusted based on future glucose readings. Instructions for insulin lispro (Humalog) Mealtime & Correction Insulin Test your blood sugar ideally 15 minute before you plan to eat. Please inject a base dose of Humalog 8 units with meals. If you are eating a larger meal, please increase your Humalog to 12 units. If you are eating a smaller meal, please decrease your Humalog to 6 units. If you are not eating any carbohydrates or skipping a meal, please skip base dose of Humalog. Based on the scale below, add up the additional units you need for your current blood sugar reading- - this is based on a correction of 1 unit to lower your blood sugar 20 points: BG under 80 Subtract 2 units from your food dose, and eat right away. BG 80 - 100 Subtract 1 unit from your food dose and give just before eating. BG 100 - 160 Give your meal dose only if eating; BG 161 - 180 Give 2 units BG 181 - 200 Give 3 units BG 201 - 220 Give 4 units BG 221 - 240 Give 5 units BG 241 - 260 Give 6 units BG 261 - 280 Give 7 units BG 281 - 300 Give 8 units BG greater than 300, give 9 units and recheck BG in 2 hours. Call your diabetes provider if blood sugar continues over 250 4hrs after correction dose. Treatment of Low Blood Sugar (Hypoglycemia) 15:15 rule - if your blood sugars is under 80, eat 15g of sugar, and recheck your blood sugar in 15minutes. If you continue to be under 80 after 15 minutes, eat 15g of sugar more, and repeat. If BG is over 100 on recheck, no need to consume more sugar, and recheck BG in another 15 minutes. If your BG is lower than 80, you are likely to feel shaky, sweaty and lightheaded. This is a signalthat your body needs more sugar. Quickly eat or drink a 15g of something sweet, such as: 4 ounces fruit juice or regular (not diet) soda 6 lifesavers small box of raisins 4 glucose tablets (~15 gm of glucose) If your BG is very low <50, you can double the amount above or take 30 gm of glucose gel/tablets. Once you are feeling better, try to determine why your BG was so low. Common causes of hypoglycemiainclude skipping a meal, lots of exercise, too much insulin or any combination of these things. Understanding the cause my help you to avoid another low BG in the future. Test blood sugars prior to driving, make sure glucose levels are greater than 100mg/dl. If not havea snack and retest blood sugars in 15 minutes. Carry a glucose source on you at all times. Call your diabetes provider for blood sugars less than 80 or greater than 300 twice in one day to have your insulin doses adjusted. * Dione Herrera, RESEARCH STATISTICIAN - 11/16/2023 2:08 PM EDT Speech Therapy Progress Note Patient Profile: Hayden Russo is a 47 y.o. male with CAD who is Post-Op CABGx3. PMH of inferior STEMI s/p PCI, IDDM2, HTN, HLD, CKD, former smoker. Extubated 11/10/23; Clinical Swallow Evaluation deferred 11/10/21 due to abdominal pain, CT abdomen: no obstruction. Evaluated 11/12/23 and cleared for Regular diet w/ energy conservation strategies. Noted to be tolerating well during re-check 11/13/23. Plan for x1-2 more f/u then DC if continues to lauro. Prior Level of Swallow Function: WFL Subjective: Pt reports no difficulty swallowing or eating , no difficulty w/ swallowing meds. Objective: Pt seen for dysphagia management today. Pain: c/o pain w/ sitting Respiratory Status: RA 95%. Current Diet: Carb Control diet 60/60/75 CHO counting level 2 Feeding and Oral Care: Pt is independent Cognitive-Linguistic Status: No overt cognitive deficits noted at this time Orientation Log Positioning: HOB 70 Oral Motor Exam: WFL Impaired Comments STRUCTURES Facial Symmetry x Lips x Tongue x Jaw x Palate/Velum x Dentition x OTHER Phonation x Intelligibility x Volitional Cough x Sensation x Secretion Management x Bolus Presentation(s): Tested Comments Thin liquids x By straw [place] thick liquids Honey thick liquids Pureed solids Dysphagia soft Mechanical soft Regular solids x Pills Other Oral Preparatory Phase Mastication: slow but adequate Oral Transit: WFL Bolus Cohesion: WFL Oral Containment: WFL, adequate lip seal and draw up on straw, no anterior spillaged Oral Stasis: Not noted Pharyngeal Phase Laryngeal Elevation: Subjectively prompt and complete to palpation and auscultation Vocal quality change: Not noted Cough / throat clear: Not noted Pt. complaint of food getting stuck: Pt denies Fatigue across trials: Not noted Respiratory rate and respiratory swallow pattern: Pt going slowly, using energy conservation strategies well as taught Esophageal Phase Appears to be WFL, No overt clinical s/s of esophageal phase dysphagia noted during this evaluation. Compensatory Techniques: The following strategies were shown to be effective: Energy Conservation Pt demonstrated independent use of strategies Education: Patient educated on role of the RESEARCH STATISTICIAN, reason for evaluation, findings and plan of care, and compensatory strategies. Patient status, treatment and swallow recommendations were discussed with nursing. Assessment: Pt seen for f/u for dysphagia mangement. Oral motor examination was unremarkable, mild dysphonia noted 11/12/23 has resolved. Oral phase of swallow was WFL. Pharyngeal phase of swallow demonstrating mild clinical s/s dysphagia related to reduced coordination of breathing and swallowing. Pt able to compensate w/ energy conservation strategies which he demonstrated using independently. No family currently in room. Diagnosis: suspected mild pharyngeal dysphagia (resolving), mild dysphonia (resolved) Recommendations: Diet: Regular solids, Thin liquids PO medications: whole with sip of liquid Aspiration precautions: Upright position during meals and for at least 30 mins following Excellent oral care x2/day recommended to prevent oral bacterial growth, oral built up of dried secretions and reduce risk for aspiration pneumonia Follow Energy Conservation Strategies (Sit upright for all PO; take your time; take small, single bites / sips and catch your breath fully between; consider small, high calorie snacks rather than large meals if you begin to fatigue with meals; consider increasing O2 w/ meals if you consistently become short of breath when eating) No further RESEARCH STATISTICIAN intervention is warranted while hospitalized. Speech Therapy Goals: (To be met by discharge) Pt will tolerate least restrictive diet consistency without evidence of dysphagia / aspiration. MET Pt / caregiver will be independent with aspiration precautions, diet modifications, and safe swallowing strategies. MET Pt/caregivers will follow anti-delirium precautions independently with assist from staff as needed MET Plan: Therapy Frequency (RESEARCH STATISTICIAN Eval): other (see comments) Pt DC from acute RESEARCH STATISTICIAN services. Pt./family are in agreement with treatment plan. Total Minutes (Speech Language Pathology): 12 Thank you for this consult with this patient. Please feel free to page me with any questions or concerns. Dione Herrera MA, [facility]-RESEARCH STATISTICIAN Pager: [phone] Speech-Language Pathology Inpatient Rehabilitation Medicine * Donavon Frey MD - 11/16/2023 11:48 AM EDT HYPERTENSION/ NEPHROLOGY PROGRESS NOTE PATIENT: Hayden Russo : 1975 REASON FOR CONSULTATION: DONAL Hayden Russo is a 47 y.o. male seen for DONAL. CVVH shift therapy stopped 11/12 AM. Overall doing all right. Making good urine Intake/Output Summary (Last 24 hours) at 11/16/2023 1519 Last data filed at 11/16/2023 1200 Gross per 24 hour Intake 760 ml Output 2685 ml Net -1925 ml Last value Range last 8 hrs Temperature Temp: 36.9 ??C (98.4 ??F) Temp: [36.8 ??C (98.3 ??F)-36.9 ??C (98.4 ??F)] Heart Rate Heart Rate: (!) 107 Heart Rate: [103-107] Blood Pressure BP: 143/68 BP: (143-171)/(67-79) Respiratory Rate Resp: 22 Resp: [22-24] SpO2 SpO2: 92 % SpO2: [92 %-94 %] Awake alert Chest - air entry distant B/L edema noted Last 3 wbc, hgb, hct plt Recent Labs 11/16/23 0129 11/15/23 0001 11/14/23 0010 WBC 10.34* 11.56* 13.52* HGB 9.3* 9.0* 9.4* HCT 30.2* 28.8* 30.7* PLATELET 498* 401* 404* Last 3 Lytes Recent Labs 11/16/23 0129 11/15/23 0001 11/14/23 0010 NA 140 139 139 K 4.0 4.1 4.5 CL 102 103 103 CO2 25 BUN 44* 41* 28* CREATININE 3.52* 3.10* 2.36* A/P: 11/16/2023 -POCUS showed A lines in the lung edmond. IVC difficult to see due to body habitus but seems to have good respirophasic variation. JVD 2 cm above clavicle with good respirophasic variation. DONAL with volume overload- Was on CVVH which was discontinued after he started making good urine. Baseline creatinine around 2.5, creatinine continues to rise after being of CVVH. Electrolytes- sodium and K are within normal limits Bone mineral- calcium, magnesium and phos within normal limits. Phos mildy elevated on Sevelmaer. Anemia- He is off antibiotics and his iron is low . Primary team can consider reducing epoitin to 10 K s/q Weekly and give venofer 300 mg Iv Q 48 hrs x 3 Recommend: Holding diuretics today and watch his urine output. * He Styles PA - 11/16/2023 9:36 AM EDT Cardiac Surgery Progress Note Hayden Russo is a 47 y.o. male with CAD who is 17 Days Post-Op CABGx3. PMH of inferior STEMI s/p PCI, IDDM2, HTN, HLD, CKD, former smoker. 24h Events: Given lasix 80 / 60 / 60 and made 3.9L of urine. Net neg 3.2L. Cr 3.5 from 3.1 Ambulated with PT and OT - rec acute rehab at this point Weaned to RA Home celexa restarted Transferred out S: Each day is a little better. Tries to get up when he has energy. Motivated to get better. Wants to shower. Pain controlled. Tolerating diet. +BMs. Not sleeping well. O: Temp: [36.9 ??C (98.4 ??F)-37.8 ??C (100 ??F)] Heart Rate: [95-114] Resp: [17-28] BP: (107-170)/(54-87) SpO2: [89 %-97 %] Heart Rate from SpO2: -- 11/14 0701 - 11/15 0700 In: 630 [P.O.:620; I.V.:10] Out: 3865 [Urine:3865] Admit weight: 128.91 kg Current weight: Weight: 119.7 kg (263 lb 12.8 oz) Physical Exam: General: no acute distress, OOB to chair Pulm: non-labored, diminished bases bilat Cardiac: tachy, regular, without murmur/gallop/rub, ST on tele Vascular: warm, 1+ LE edema Abd: non-tender, non-distended, active bowel sounds MSKL: sternum stable Neuro: Awake and alert, no focal deficits Integ: incisions clean, dry, intact Tubes/Lines/Drains: RIJ HD line, Todd, PIV Assessment/Plan: 47 y.o. male 17 Days Post-Op CABGx3 MV CAD s/p CABGx3 Acute HFrEF, LVEF 40-50%, Mod RV Dysfunction ASA / Plavix / Eliquis Statin Increase Coreg to 18.75 BID Losartan 100 daily Diuresis PT / OT Post operative acute hypoxemic respiratory failure Weaned to RA IS/OOB Sputum, BC NGTD Completed 6 days zosyn Scheduled duonebs, decrease to q6h while awake Post operative atrial fibrillation related to cardiac surgery NSR Amio 200 BID Coreg Eliquis 2.5 BID (low dose in setting of triple therapy) Acute on chronic renal insufficiency Hyperkalemia (resolved) Hyperphosphatemia Hypocalcemia Vit D deficiency CRRT discontinued POD 14 Daily assessment for iHD needs (not required yet) D/C HD line today, if ends up needing HD will consult IR for tunneled line Diuretic holiday today Daily BMPs Monitor UOP Nephrology following, appreciate recs Vitamin D 50k weekly Age indeterminate right peroneal DVT B/l LE duplex 11/02 with age indeterminate right peroneal DVT ASA/Plavix/Eliquis 2.5 BID (low dose in setting of triple therapy) Acute hypertriglyceridemia While on propofol Recheck triglycerides if propofol restarted Acute post-op blood loss anemia Anemia of CKD Transfused 1 unit 11/03 and 11/04, 11/06 Continue Epogen 10k 3 times weekly Daily CBC Iron labs c/w chronic anemia HTN Cozaar 100 daily Increase Coreg to 18.75 BID T2DM Sick Euthyroid state Recent A1c 11.2, repeat 9.5 Lantus 44U daily DM following, appreciate recs, custom q4h correction scale Carb control diet ordered No thyroid replacement necessary, repeat labs in 4-6 weeks Insomnia Stop seroquel Trial trazodone qhs Pt does not tolerate melatonin VS q4h while awake Dispo: L4WA, full code Discussed with attending surgeon on rounds this morning. 11/16/2023 Between the hours of 1800 - 0600 and on the weekends please page [phone]. * Donavon Frey MD - 11/15/2023 3:22 PM EDT HYPERTENSION/ NEPHROLOGY PROGRESS NOTE PATIENT: Hayden Russo : 1975 REASON FOR CONSULTATION: DONAL Hayden Russo is a 47 y.o. male seen for DONAL. CVVH shift therapy stopped 11/12 AM. Says he has been sleeping better after being off CVVH. Last value Range last 8 hrs Temperature Temp: 37.4 ??C (99.4 ??F) Temp: [36.6 ??C (97.9 ??F)-37.4 ??C (99.4 ??F)] Heart Rate Heart Rate: (!) 107 Heart Rate: [93-114] Blood Pressure BP: 148/72 BP: (107-160)/(54-83) Respiratory Rate Resp: 25 Resp: [17-27] SpO2 SpO2: 93 % SpO2: [90 %-96 %] Awake alert Chest - air entry distant B/L edema noted Last 3 wbc, hgb, hct plt Recent Labs 11/15/23 0001 11/14/23 0010 11/13/23 0009 WBC 11.56* 13.52* 14.34* HGB 9.0* 9.4* 8.5* HCT 28.8* 30.7* 27.7* PLATELET 401* 404* 306 Last 3 Lytes Recent Labs 11/15/23 0001 11/14/23 0010 11/13/23 1605 NA 139 139 140 K 4.1 4.5 4.7 CL 103 103 105 CO2 24 25 23 BUN 41* 28* 24* CREATININE 3.10* 2.36* 1.93* A/P: DONAL with volume overload- Off CVVH yesterday, making good urine and is net negative 1.7 L. Renal insufficiency- Baseline creatinine around 2.5, creatinine continues to rise after being of CVVH. Electrolytes- sodium and K are within normal limits Bone mineral- calcium, magnesium and phos within normal limits. Anemia- I added on iron and ferritin levels. Primary team can consider reducing epoitin to 10 K s/qWeekly. Recommend: Can consider lasix 80 mg IV and trend his urine output to target a net negative of 15- 2 L by tomorrow morning. Based on urine output can try lasix 60-80 mg today afternoon and evening. Discussed with primary team. * Diallonancykishor Kita Jarek, OT - 11/15/2023 2:55 PM EDT Occupational Therapy Treatment Note Treatment Number OT: 2 Patient profile: Hayden Russo is a 47 y.o. male admitted on 10/30/2023 with a history of ASCVDpresenting with inferior STEMI s/p RCA PCI 2018 with recurrent RCA closures and repeat PCI (most recently July 2023), ischemic cardiomyopathy (LVEF 45%, RV dysfunction), poorly controlled IDDM2, chronic renal insufficiency (baseline creatinine in 2s), BMI 42, HTN, HLD, TUD in remission who is now s/p planned 3vCABG ([place]-LAD, SVG-OM2, SVG-RPDA) with Dr. Person on 10/30/23 with post-op course complicated by RV failure, cardiogenic shock, severe hypoxic respiratory failure and acute kidney injury on CKD. Social History: (pt and CM note) Patient lives with his and tabby cat. Home Setup: a2nd floor apartment with FOS to enter. DME: walker and cane Baseline ADL/Mobility: Independent with ADLs and functional mobility. 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 Precautions/Special Considerations: Full code. Risk for falls. sternal precautions: no lifting >5-10 lbs.; no pushing or pulling with UE's; no excessive chest stretching, hug a pillow or cross your arms when you stand or sit, no driving until cleared by your surgeon. Risk for delirium. Central line. Todd catheter. Interval History: walked with PT in morning and then again just prior to OT session S: I'm getting frustrated and I shouldn't be. O: Patient seen for skilled OT treatment, and demonstrated the following: Self-care: Educated and facilitated with middle school spanish teacher to don shorts with increased time and Mod A with VCs for sequencing. Max A to pulling unit operator hips. Functional Mobility: Sit to stand: Min A with pt using momentum to build-up (rocking 3x), RW 1-handed assist to pull pants over hips and 1 hand on RW Stand to sit: Min A with poor eccentric control Cognition: Behavior / Mood: alert and cooperative Alert and oriented to: person, place, time, and situation Follows commands: 2 step and requires repetition of directions/verbal cueing 2/2 being overwhelmed Attention: requires cues to redirect Safety awareness: Fair, requires intermittent reminders for sternal precautions Pleasant and willing Vision: no acute changes Endurance: requires frequent rest breaks Vitals: post mobility: BP (MAP) 128/79 (95) HR 109 SpO2 92% on RA Strength/ROM: deconditioned but improved since initial evaluation a few days ago Pain: discomfort but not hindering session Education: Pt/family/caregiver education ongoing regarding: Role of occupational therapy/rehabilitation, Transfers, Adaptive equipment training, ADL, Breathing exercises, Positioning, Safety, Precautions/Protocol, Functional Mobility, Activity pacing/Energy conservation, Balance, Recommendations, and Family training. Staff Communication: Patient status, treatment, and mobility recommendations discussed with nursing/other staff. ASSESSMENT: Ambrocio is making good progress towards OT goals. He demonstrates good self-motivation to progress. He continues to require intermittent rest breaks. 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 Pt will benefit from ongoing therapeutic interventions to achieve pt's and therapy goals. Equipment needs at discharge: to be determined Anticipated Discharge Disposition: acute rehabilitation facility Daily schedule / Staff Recommendations: Open shades and turn on lights during the day/lights off at night, Set-up patient with ADL tasks, allow patient to complete ADL tasks as independently as possible Assist patient to the toilet (no bed brooks) Provide choices as able, encourage safe coping skills (such as music, reading, coloring, word search, journaling) Have patient sit up in recliner during the day as much as possible Sit upright for all meals Ambulate as tolerated Goals: To be achieved by 11/27/23. Pt will demonstrate independence with precautions/restrictions during ADLs. Pt will perform standing ADLs with CGA only and least restrictive assistive device. Pt will complete LB dressing with Min A and adaptive technique/equipment as needed. Pt will complete UB dressing with CGA and compensatory strategies as needed. Pt will ambulate with Min A to the toilet and least restrictive assistive device. Patient will complete luis miguel-care and clothing management with Min A with adaptive equipment as needed and least restrictive assistive device. Spouse will demonstrate and state safe techniques to assist and care for the patient and limit harmto themself. Therapy Frequency (OT): 2-4 times/wk Total Minutes, Occupational Therapy: 18 ([phone] (self care x1)) Pager: [phone] Kita Tomlinson, OT 11/15/2023 Occupational Therapy Rehabilitation Department * Michelle Pretty, FARM EQUIPMENT OPERATOR - 11/15/2023 2:00 PM EDT Glucose Management Team Inpatient Progress Note HPI Hayden Russo is a 47 y.o. male from [place], [place], with PMH significant for ASCVD-CAD (2019 STEMI w/PCI - RCA stent, then occluded and re-stented 05/2023), CKD (eGFR 33), Pancreatitis w/hospitalization ~05/2023, IDDM2 poorly controlled (A1c 9.5% 10/2023), who was admitted on 10/30/2023 currently being treated for re-occlusion of stents, now s/p 10/29 CABG X3. Original consult completed: 10/31/2023 Patient Interview & Updates BG continue over 200 both overnight and after meals with new ICR 1:8g for supper and BF today Ambrocio is up walking in the halls today. Objective Temp: [36.6 ??C (97.9 ??F)-38 ??C (100.4 ??F)] Heart Rate: [90-116] Resp: [17-34] BP: (107-160)/(50-85) SpO2: [87 %-97 %] Heart Rate from SpO2: -- Wt Readings from Last 3 Encounters: 11/15/23 121.6 kg (268 lb 1.3 oz) 09/22/23 123.3 kg (271 lb 14.4 oz) 09/12/23 122.1 kg (269 lb 3.2 oz) Current Regimen from Yesterday Insulin glargine 40u QD at 1800 Lispro for Correction: Custom 1:15 >140 Q4hrs Lispro for Meals: 1 unit for every 8g carbohydrate (range 0-10u) starting at supper; Hold if NPO orBG <70. Monitoring: BG Q4hrs Diet: Carb Controlled 60/60/75g Relevant Meds: Prior: 10/29 1811 - D10 w/10u Regular insulin for hyperkalemia; Norepinephrine in D5% 10/29-0003 10/30);Epinephrine in D5%; Milrinone in D5%; chlorothiazide in D5; Dopamine in D5% (11/05-11/08); Chlorothiazide in D5%(intermittent doses); TF (stopped 11/13) TDD: 11/13: 77u (40u basal, 11u meal, 26u correction) - 8u correction overnight 11/12: 74u (40u basal, 15u TF, 5u meal, 14u correction) 11/11: 60u (40u basal, 19u TF, 0u meal, 1u correction) Recent Glucose Levels Recent Labs 11/15/23 1205 11/15/23 0822 11/15/23 0352 11/15/23 0001 11/14/23 2041 11/14/23 1724 11/14/23 1205 11/14/23 0829 11/14/23 0442 11/13/23 2353 11/13/23 2101 11/13/23 1629 POCGLU 210* 154 238* 153 221* 217* 208* 260* 139 146 201* 147 ASSESSMENT Hayden Russo is a 47 y.o. years old male with PMH significant for IDDM2 (Last A1C of 11.2% 05/2023) who was admitted on 10/30/2023 for re-occlusion of stents, now s/p 10/29 CABG X3. Diabetes poorlycontrolled and complicated by acute illness. Currently variable blood glucose levels while hospitalized requiring adjustment of insulin regimen and DM medications. Ambrocio continues eating well, and BG are over 200 overnight and after meals. Plan to increase glargine today to 44u and increase meal insulin to 1:7g ICR at supper. He would appreciate a correction chart for his Humalog, so DC instructions drafted below. Team updated with recommendations. RECOMMENDATIONS: INCREASE Insulin glargine 44 QD at 1800 Lispro for Correction: Custom 1:15 >140 Q4hrs INCREASE for supper: Lispro for Meals: 1 unit for every 7g carbohydrate (range 0-11u); Hold if NPO or BG <70. Monitoring: BG Q4hrs Diet: Carb Controlled 60/60/75g Discharge Planning/intermediate diabetes care: Medications - Outpatient treatment regimen recommendations pending based on the hospital course. Home: Confirmed 11/12 Farxiga 10mg QD - likely restart at discharge. Insulin glargine (Basaglar) 56u QD - discharge on hospital dose Humalog 20-30u TID w/meals - Needs meal base dose with correction scale. No Ozempic since May d/t pancreatitis. Monitoring BG tid ac & hs Follow-up: PCP 35 minutes were spent over the course of the day with this patient encounter including time spent in chart review and relevant lab result review, assessment of and counseling with the patient on diabetes and treatment plan, reviewing all glucose and insulin data, and coordination with the consulting service. Michelle Pretty APRN, DNP, -[facility] Inpatient Diabetes Management Team Team pager #[phone] (DRAFT) Diabetes Discharge Instructions & Recommendations Check blood sugars when you wake up, before meals, bedtime, anytime you don't feel well. See new doses below for insulin glargine (Basaglar) and Humalog Follow-up with your diabetes provider for insulin adjustments if blood sugars are under 80 or over 200 after discharge. Instructions for insulin glargine (Basaglar) Insulin (LONG ACTING) Please inject Basaglar 40 units every morning. If your fasting blood sugars are above 150mg/dl two days in a row, please increase your Lantus by 2units. If your fasting blood sugars are below 90mg/dl two days in a row, please decrease your Lantus by 2 units. This dose now becomes your new daily dose unless it need to be further adjusted based on future glucose readings. Instructions for insulin lispro (Humalog) Mealtime & Correction Insulin Test your blood sugar ideally 15 minute before you plan to eat. Please inject a base dose of Humalog 10 units with meals. If you are eating a larger meal, please increase your Humalog to 14 units. If you are eating a smaller meal, please decrease your Humalog to 6 units. If you are not eating any carbohydrates or skipping a meal, please skip base dose of Humalog. Based on the scale below, add up the additional units you need for your current blood sugar reading- - this is based on a correction of 1 unit to lower your blood sugar 20 points: BG under 80 Subtract 2 units from your food dose, and eat right away. BG 80 - 100 Subtract 1 unit from your food dose and give just before eating. BG 100 - 160 Give your meal dose only if eating; BG 161 - 180 Give 2 units BG 181 - 200 Give 3 units BG 201 - 220 Give 4 units BG 221 - 240 Give 5 units BG 241 - 260 Give 6 units BG 261 - 280 Give 7 units BG 281 - 300 Give 8 units BG greater than 300, give 9 units and recheck BG in 2 hours. Call your diabetes provider if blood sugar continues over 250 4hrs after correction dose. Treatment of Low Blood Sugar (Hypoglycemia) 15:15 rule - if your blood sugars is under 80, eat 15g of sugar, and recheck your blood sugar in 15minutes. If you continue to be under 80 after 15 minutes, eat 15g of sugar more, and repeat. If BG is over 100 on recheck, no need to consume more sugar, and recheck BG in another 15 minutes. If your BG is lower than 80, you are likely to feel shaky, sweaty and lightheaded. This is a signalthat your body needs more sugar. Quickly eat or drink a 15g of something sweet, such as: 4 ounces fruit juice or regular (not diet) soda 6 lifesavers small box of raisins 4 glucose tablets (~15 gm of glucose) If your BG is very low <50, you can double the amount above or take 30 gm of glucose gel/tablets. Once you are feeling better, try to determine why your BG was so low. Common causes of hypoglycemiainclude skipping a meal, lots of exercise, too much insulin or any combination of these things. Understanding the cause my help you to avoid another low BG in the future. Test blood sugars prior to driving, make sure glucose levels are greater than 100mg/dl. If not havea snack and retest blood sugars in 15 minutes. Carry a glucose source on you at all times. Call your diabetes provider for blood sugars less than 80 or greater than 300 twice in one day to have your insulin doses adjusted. * Julianne Moore, PT - 11/15/2023 11:48 AM EDT Physical Therapy Note Treatment Number PT: 4 Patient profile: Hayden Russo is a 47 y.o. male with CAD who is 16 Days Post-Op CABGx3. PMH of inferior STEMI s/p PCI, IDDM2, HTN, HLD, CKD, former smoker. 24h Events: Lasix IV 60/60/60, neg 1.5L on the day Held off on further dialysis Eliquis 2.5 BID started as triple therapy Walked 45ft with PT Remains on 3L NC Social History: Pt lives with in an apt with FOS to enter, they have a walker and a cane if needed. Precautions/Special Considerations: Sternal precautions ( No pushing, no pulling, no lifting >8-10 lbs) Mobility and Positioning Recommendations: 1-2 assist for stand pivot from bed to chair/commode Ambulate short distances with 1 assist, rolling walker; recliner chair follow. Frequent seated restbreaks. Subjective: My bottom is the problem. It hurts so bad. Objective: Patient seen for physical therapy and demonstrated the following: Pain: blisters on bottom; did not rate. Sidelying at end of session Mental Status: alert, oriented, appropriate, motivated and appreciative of PT help Vital Signs: SpO2: 95% on RA HR: 90-100's BP: 124/64 with amb Sitting EOB at start of session with RN Sit to stand to rolling walker with min-mod assist x 1; cues for hand placement. Sit to stand x 7 times during session Ambulated 110 ft with 5 seated rest breaks, rolling walker, 1 cg-min assist and close chair follow with recliner. Fatigues quickly. There-ex: standing; hip flex; heel raises; seated resisted LAQ; Education: reviewed sternal precautions, deep breathing, PLB, role of PT and weight shift for skin break down. Assessment: Ambrocio was seen today for physical therapy treatment session for continuation of POC. He is making daily gains and today was able to ambulate 110 [address] in the hallway. He fatigues quickly and requires frequent seated rest breaks. Vitals stable today with mobility. He will benefit from continued PT in an acute rehab setting upon d/c. He will benefit from frequent short walks with nursing. Inpatient Physical Therapy Plan: 3-5 times/wk -strengthening, stretching, deep breathing and coughing, progressive walks Discharge Recommendations: Acute Rehab. Consult Recommendations: No other consults recommended at this time. Equipment needs: to be determined Goals: To be achieved by 11/24/23:goals ongoing as of today 11/15/23 Pt. to demonstrate knowledge of safety limitations and precautions and will appropriately request assistance for functional activities as appropriate. Pt able to complete functional activities with tolerable level of pain and stable vital signs. Pt. to demonstrate understanding of appropriate stretching and strengthening exercises. Pt. to perform bed mobility with min A. Pt. to perform sit to stand transfers with supervision using a front wheeled walker. Pt. to ambulate 100ft with CGA using a a front wheeled walker. Time IN / OUT: 1403-0720 Total Minutes, Physical Therapy: 45 mins( tef) Julianne Moore, PT Pager: [phone] Physical Therapy Inpatient Rehabilitation Department * Pat Kwok PA - 11/15/2023 9:28 AM EDT Cardiac Surgery Progress Note Hayden Russo is a 47 y.o. male with CAD who is 16 Days Post-Op CABGx3. PMH of inferior STEMI s/p PCI, IDDM2, HTN, HLD, CKD, former smoker. 24h Events: Lasix IV 60/60/60, neg 1.5L on the day Held off on further dialysis Eliquis 2.5 BID started as triple therapy Walked 45ft with PT Remains on 3L NC S: Each day is getting better, he feels stronger. Denies pain, SOB, dizziness. Optimistic he can progress to the point where he can go home. O: Temp: [36.6 ??C (97.9 ??F)-38 ??C (100.4 ??F)] Heart Rate: [90-122] Resp: [21-34] BP: (117-164)/(50-85) SpO2: [87 %-97 %] Heart Rate from SpO2: -- 11/13 0701 - 11/14 0700 In: 1070 [P.O.:1070] Out: 2800 [Urine:2800] Admit weight: 128.91 kg Current weight: Weight: 121.6 kg (268 lb 1.3 oz) Physical Exam: General: no acute distress, OOB to chair Pulm: non-labored, diminished bases bilat Cardiac: tachy, regular, without murmur/gallop/rub Vascular: warm, 1-2+ LE edema Abd: non-tender, non-distended, active bowel sounds MSKL: sternum stable Neuro: A&Ox4, no focal deficits Integ: incisions clean, dry, intact Tubes/Lines/Drains: RIJ HD line, Todd, PIV Assessment/Plan: 47 y.o. male 16 Days Post-Op CABGx3 MV CAD s/p CABGx3 Acute HFrEF, LVEF 40-50%, Mod RV Dysfunction ASA / Plavix / Eliquis Statin Metoprolol changed to Coreg 12.5 BID Losartan increase 100 daily Diuresis Post operative acute hypoxemic respiratory failure Now on NC, wean as able IS/OOB Sputum, BC NGTD Completed 6 days zosyn Scheduled albuterol Post operative atrial fibrillation related to cardiac surgery NSR Amio 200 BID Coreg Eliquis 2.5 BID (low dose in setting of triple therapy) Acute on chronic renal insufficiency Hyperkalemia (resolved) Hyperphosphatemia Hypocalcemia Vit D deficiency CRRT discontinued POD 14 Daily assessment for iHD needs (not required yet) Lasix x 60 IV up to TID for goal net neg 1.5-2L Metolazone qPM PRN Daily BMPs Monitor UOP Nephrology following, appreciate recs Vitamin D 50k weekly Age indeterminate right peroneal DVT B/l LE duplex 11/02 with age indeterminate right peroneal DVT ASA/Plavix/Eliquis 2.5 BID (low dose in setting of triple therapy) Acute hypertriglyceridemia While on propofol Recheck triglycerides if propofol restarted Acute post-op blood loss anemia Anemia of CKD Transfused 1 unit 11/03 and 11/04, 11/06 Continue Epogen 10k 3 times weekly Daily CBC Iron labs c/w chronic anemia HTN Cozaar 100 daily Coreg 12.5 BID T2DM Sick Euthyroid state Recent A1c 11.2, repeat 9.5 Lantus 40U daily DM following, appreciate recs, custom q4h correction scale Carb control diet ordered No thyroid replacement necessary, repeat labs in 4-6 weeks Dispo: Transfer to [facility], full code Discussed with attending surgeon on rounds this morning. 11/15/2023 Between the hours of 1800 - 0600 and on the weekends please page [phone]. * Michelle Pretty, RAMONA - 11/14/2023 2:24 PM EDT Glucose Management Team Inpatient Progress Note HPI Hayden Russo is a 47 y.o. male from [place], [place], with PMH significant for ASCVD-CAD (2019 STEMI w/PCI - RCA stent, then occluded and re-stented 05/2023), CKD (eGFR 33), Pancreatitis w/hospitalization ~05/2023, IDDM2 poorly controlled (A1c 9.5% 10/2023), who was admitted on 10/30/2023 currently being treated for re-occlusion of stents, now s/p 10/29 CABG X3. Original consult completed: 10/31/2023 Patient Interview & Updates Ambrocio continues eating - he had eggs, sausage, toast, and mandarin oranges for BF, and 1/2 bagel with cheese and sausage for lunch. He is looking forward to dinner. Overall improvement in appetite. BG 260 today after breakfast, and insulin given after. BG at lunch 208 Objective Temp: [36.7 ??C (98 ??F)-37.5 ??C (99.5 ??F)] Heart Rate: [95-122] Resp: [18-31] BP: (120-173)/(56-92) SpO2: [91 %-100 %] Heart Rate from SpO2: -- Wt Readings from Last 3 Encounters: 11/14/23 117.1 kg (258 lb 2.5 oz) 09/22/23 123.3 kg (271 lb 14.4 oz) 09/12/23 122.1 kg (269 lb 3.2 oz) Current Regimen from Yesterday Insulin glargine 40u QD at 1800 Lispro for Correction: Custom 1:15 >140 Q4hrs Lispro for Meals: 1 unit for every 10g carbohydrate; Hold if NPO or BG <70. Monitoring: BG Q4hrs Diet: Carb Controlled 60/60/75g Relevant Meds: TF (Peptamen AF 112g/1000mL, goal rate 75ml/hr)- stopped this AM; Prior: 10/29 1811 - D10 w/10u Regular insulin for hyperkalemia; Norepinephrine in D5% 10/29-0003 10/30);Epinephrine in D5%; Milrinone in D5%; chlorothiazide in D5; Dopamine in D5% (11/05-11/08); Chlorothiazide in D5%(intermittent doses) TDD: 11/12: 74u (40u basal, 15u TF, 5u meal, 14u correction) 11/11: 60u (40u basal, 19u TF, 0u meal, 1u correction) Recent Glucose Levels Recent Labs 11/14/23 1205 11/14/23 0829 11/14/23 0442 11/13/23 2353 11/13/23 2101 11/13/23 1629 11/13/23 1216 11/13/23 0925 11/13/23 0402 11/13/23 0008 11/12/23200411/12/23 1627 POCGLU 208* 260* 139 146 201* 147 206* 182 137 91 109 128 ASSESSMENT Hayden Russo is a 47 y.o. years old male with PMH significant for IDDM2 (Last A1C of 11.2% 05/2023) who was admitted on 10/30/2023 for re-occlusion of stents, now s/p 10/29 CABG X3. Diabetes poorlycontrolled and complicated by acute illness. Currently variable blood glucose levels while hospitalized requiring adjustment of insulin regimen and DM medications. Ambrocio continues to tolerate a Carb Controlled 60/60/75g diet, eating ~30g/meal for the last 2 meals.BG are over 200 today, however BF BG/meal insulin after eating. He likely needs more insulin for food, so recommend 1:8g ICR for supper tonight - pended for team review. He would appreciate a correction chart for his Humalog, so DC instructions drafted below. Team updated with recommendations. RECOMMENDATIONS: Insulin glargine 40u QD at 1800 Lispro for Correction: Custom 1:15 >140 Q4hrs Consider Moderate 1:20 >140 Q4hrs if BG <100 after corrections. INCREASE for supper: Lispro for Meals: 1 unit for every 8g carbohydrate (range 0-10u); Hold if NPO or BG <70. Monitoring: BG Q4hrs Diet: Carb Controlled 60/60/75g Discharge Planning/salvage determiner diabetes care: Medications - Outpatient treatment regimen recommendations pending based on the hospital course. Home: Confirmed 11/12 Farxiga 10mg QD - likely restart at discharge. Insulin glargine (Basaglar) 56u QD - discharge on hospital dose Humalog 20-30u TID w/meals - Needs meal base dose with correction scale. No Ozempic since May d/t pancreatitis. Monitoring BG tid ac & hs Follow-up: PCP 35 minutes were spent over the course of the day with this patient encounter including time spent in chart review and relevant lab result review, assessment of and counseling with the patient on diabetes and treatment plan, reviewing all glucose and insulin data, and coordination with the consulting service. Michelle Pretty APRN, DNP, -[facility] Inpatient Diabetes Management Team Team pager #[phone] (DRAFT) Diabetes Discharge Instructions & Recommendations Check blood sugars when you wake up, before meals, bedtime, anytime you don't feel well. See new doses below for insulin glargine (Basaglar) and Humalog Follow-up with your diabetes provider for insulin adjustments if blood sugars are under 80 or over 200 after discharge. Instructions for insulin glargine (Basaglar) Insulin (LONG ACTING) Please inject Basaglar 40 units every morning. If your fasting blood sugars are above 150mg/dl two days in a row, please increase your Lantus by 2units. If your fasting blood sugars are below 90mg/dl two days in a row, please decrease your Lantus by 2 units. This dose now becomes your new daily dose unless it need to be further adjusted based on future glucose readings. Instructions for insulin lispro (Humalog) Mealtime & Correction Insulin Test your blood sugar ideally 15 minute before you plan to eat. Please inject a base dose of Humalog 10 units with meals. If you are eating a larger meal, please increase your Humalog to 14 units. If you are eating a smaller meal, please decrease your Humalog to 6 units. If you are not eating any carbohydrates or skipping a meal, please skip base dose of Humalog. Based on the scale below, add up the additional units you need for your current blood sugar reading- - this is based on a correction of 1 unit to lower your blood sugar 20 points: BG under 80 Subtract 2 units from your food dose, and eat right away. BG 80 - 100 Subtract 1 unit from your food dose and give just before eating. BG 100 - 160 Give your meal dose only if eating; BG 161 - 180 Give 2 units BG 181 - 200 Give 3 units BG 201 - 220 Give 4 units BG 221 - 240 Give 5 units BG 241 - 260 Give 6 units BG 261 - 280 Give 7 units BG 281 - 300 Give 8 units BG greater than 300, give 9 units and recheck BG in 2 hours. Call your diabetes provider if blood sugar continues over 250 4hrs after correction dose. Treatment of Low Blood Sugar (Hypoglycemia) 15:15 rule - if your blood sugars is under 80, eat 15g of sugar, and recheck your blood sugar in 15minutes. If you continue to be under 80 after 15 minutes, eat 15g of sugar more, and repeat. If BG is over 100 on recheck, no need to consume more sugar, and recheck BG in another 15 minutes. If your BG is lower than 80, you are likely to feel shaky, sweaty and lightheaded. This is a signalthat your body needs more sugar. Quickly eat or drink a 15g of something sweet, such as: 4 ounces fruit juice or regular (not diet) soda 6 lifesavers small box of raisins 4 glucose tablets (~15 gm of glucose) If your BG is very low <50, you can double the amount above or take 30 gm of glucose gel/tablets. Once you are feeling better, try to determine why your BG was so low. Common causes of hypoglycemiainclude skipping a meal, lots of exercise, too much insulin or any combination of these things. Understanding the cause my help you to avoid another low BG in the future. Test blood sugars prior to driving, make sure glucose levels are greater than 100mg/dl. If not havea snack and retest blood sugars in 15 minutes. Carry a glucose source on you at all times. Call your diabetes provider for blood sugars less than 80 or greater than 300 twice in one day to have your insulin doses adjusted. * Natalie Martin, PT - 11/14/2023 12:40 PM EDT Physical Therapy Note Treatment Number PT: 3 Patient profile: Hayden Russo is a 47 y.o. male with CAD who is 15 Days Post-Op CABGx3. PMH of inferior STEMI s/p PCI, IDDM2, HTN, HLD, CKD, former smoker. 24h Events: CVVH stopped, good response from lasix, no need to iHD overnight Lasix 80 IV, net negative 1.5L Metoprolol and losartan titrated for HTN Hemodynamically stable 3L NC Social History: Pt lives with in an apt with FOS to enter, they have a walker and a cane if needed. Precautions/Special Considerations: sternal precautions, CVVHD, a-line, todd, PIV Mobility and Positioning Recommendations: Mechanical lift to chair at this time Bed/chair position. Subjective: My feel hurt so much at night, I can't sleep. Objective: Patient seen for physical therapy and demonstrated the following: Pain: B foot pain (swelled and sore in conjunction with h/o diabetic neuropathies) Mental Status: alert, oriented, appropriate, motivated and appreciative of PT help Vital Signs: SpO2: 92-96% on RA HR: 102-122 BP: 153/90 rest; 164/74 after ambulating 45 ft in hallway; 160/61 after second 45 ft walk Exercises: Completed retrograde massage to B ankles/lowerleg dues to swelling and also incorporatedcontract=relax stretch to ant tib and gastrocs. Completed ankle pumps, resisted hip extension from hip/knee flexed position, SAQ, hip abd/add, bridging, Hip er/ir from hook lying position, overhead reaches; work on IS (1250ml, cough fair, clear) Pt rolled to R with cues, transferred side lying to si with mod/max A x1. From raised bed, pt stood x3 using good technique (hands on thighs), able to come to full stand andlower with fair + control. Pt stood 3rd time and was able to ambulate 45 ft, rested and ambulated 45 ft back to room with FWW with cga and chair follow/assist for o2 cart/monitor. Pt sat EOB upon return to room and did one more transfer to chair once set up for him. Worked on Db and cough with IS. Able to get 1250ml. Pt left in bedside recliner chair Education: review of exs he can do on his won, Assessment: Hayden Russo was seen today for physical therapy treatment session for continuation of POC. Pt making excellent gains and is so pleased with his progress. HR more controlled today (102-122) but still hypertensive. Pt is gaining confidence and strength and just needs frequent opportunities to mobilize safely. Getting him into a regular hospital bed will also help him mobilize more on his own in bed and may help him sleep better too. Inpatient Physical Therapy Plan: 3-5 times/wk -strengthening, stretching, deep breathing and coughing, progressive walks Discharge Recommendations: Based on current findings- to be determined pending medical status &functional progression (may need short term rehab) Consult Recommendations: No other consults recommended at this time. Equipment needs: to be determined Goals: To be achieved by 11/24/23:goals ongoing as of today 11/14/23 Pt. to demonstrate knowledge of safety limitations and precautions and will appropriately request assistance for functional activities as appropriate. Pt able to complete functional activities with tolerable level of pain and stable vital signs. Pt. to demonstrate understanding of appropriate stretching and strengthening exercises. Pt. to perform bed mobility with min A. Pt. to perform sit to stand transfers with supervision using a front wheeled walker. Pt. to ambulate 100ft with CGA using a a front wheeled walker. Time IN / OUT: 1748-2800 Total Minutes, Physical Therapy: 60 Billing Code: te-sx2, te-fx NATALIE MATRIN PT Pager: [phone] Physical Therapy Inpatient Rehabilitation Department * Donavon Frey MD - 11/14/2023 11:56 AM EDT HYPERTENSION/ NEPHROLOGY PROGRESS NOTE PATIENT: Hayden Russo : 1975 REASON FOR CONSULTATION: DONAL Hayden Russo is a 47 y.o. male seen for DONAL. He was on shift CVVH for volume overload overnight. Continues to make urine and made 2.4 L of urine in the past 24 hrs. He says he has not been sleeping well and that is his main problem. No overt shortness of breath. Last value Range last 8 hrs Temperature Temp: 37 ??C (98.6 ??F) Temp: [37 ??C (98.6 ??F)-37.3 ??C (99.1 ??F)] Heart Rate Heart Rate: (!) 113 Heart Rate: [95-114] Blood Pressure BP: 133/63 BP: (133-164)/(63-92) Respiratory Rate Resp: (!) 31 Resp: [18-31] SpO2 SpO2: 93 % SpO2: [93 %-100 %] Awake alert Chest - air entry distant B/L edema noted Last 3 wbc, hgb, hct plt Recent Labs 11/14/23 0010 11/13/23 0009 11/12/23 0009 WBC 13.52* 14.34* 15.72* HGB 9.4* 8.5* 8.4* HCT 30.7* 27.7* 27.4* PLATELET 404* 306 310 Last 3 Lytes Recent Labs 11/14/23 0010 11/13/23 1605 11/13/23 0009 NA 139 140 139 K 4.5 4.7 4.4 CL 103 105 107 CO2 25 23 24 BUN 28* 24* 18 CREATININE 2.36* 1.93* 1.37 A/P: DONAL with volume overload- CVVH transitioned to shift CVVH and was on it yesterday overnight Making good urine with diuretics and made 2.3 L of urine with 40 + 60 mg Lasix. Continues to be fluid overloaded. Renal insufficiency- Baseline creatinine around 2.5, creatinine continues to rise after being of CVVH. Electrolytes- sodium and K are within normal limits Bone mineral- calcium, magnesium and phos within normal limits. Recommend: Lasix 60 mg IV TID ( since he has a todd cath ) to target a urine output of ~ 3 L to target a net negative of ~ 2 L Can add metolazone 2.5 mg at night if his urine target of ~ 1.5- 1.8 L is not achieved by tonight. Discussed with primary team. * Pat Kwok PA - 11/14/2023 8:43 AM EDT Cardiac Surgery Progress Note Hayden Russo is a 47 y.o. male with CAD who is 15 Days Post-Op CABGx3. PMH of inferior STEMI s/p PCI, IDDM2, HTN, HLD, CKD, former smoker. 24h Events: CVVH stopped, good response from lasix, no need to iHD overnight Lasix 80 IV, net negative 1.5L Metoprolol and losartan titrated for HTN Hemodynamically stable 3L NC S: Patient feeling well today, getting stronger. Complaints of several loose stool yesterday after receiving increased bowel regimen. No further episodes today. Tolerating PO diet. O: Temp: [37.1 ??C (98.7 ??F)-37.5 ??C (99.5 ??F)] Heart Rate: [95-125] Resp: [18-30] BP: (120-173)/(59-92) SpO2: [91 %-97 %] Heart Rate from SpO2: -- 11/12 0701 - 11/13 0700 In: 845.8 [P.O.:720; I.V.:64] Out: 2530 [Urine:2370] Admit weight: 128.91 kg Current weight: Weight: 117.1 kg (258 lb 2.5 oz) Physical Exam: General: no acute distress, OOB to chair Pulm: non-labored, diminished bases bilat Cardiac: tachy, regular, without murmur/gallop/rub Vascular: warm, 1-2+ LE edema Abd: non-tender, non-distended, active bowel sounds MSKL: sternum stable Neuro: A&Ox4, no focal deficits Integ: incisions clean, dry, intact Tubes/Lines/Drains: RIJ HD line, Todd, PIV Assessment/Plan: 47 y.o. male 15 Days Post-Op CABGx3 MV CAD s/p CABGx3 Acute HFrEF, LVEF 40-50%, Mod RV Dysfunction ASA / Plavix Statin Metoprolol 50 TID Losartan increase 100 daily Diuresis Post operative acute hypoxemic respiratory failure Now on NC, wean as able IS/OOB Sputum, BC NGTD Completed 6 days zosyn Scheduled albuterol Post operative atrial fibrillation related to cardiac surgery NSR Amio 200 BID Metoprolol Acute on chronic renal insufficiency Hyperkalemia (resolved) Hyperphosphatemia Hypocalcemia Vit D deficiency CRRT discontinued POD 14 Daily assessment for iHD needs (not required yet) Lasix x 60 IV up to TID for goal net neg 1.5-2L Metolazone qPM PRN Daily BMPs Monitor UOP Nephrology following, appreciate recs Vitamin D 50k weekly Age indeterminate right peroneal DVT B/l LE duplex 11/02 with age indeterminate right peroneal DVT AC plan pending Acute hypertriglyceridemia While on propofol Recheck triglycerides if propofol restarted Acute post-op blood loss anemia Anemia of CKD Transfused 1 unit 11/03 and 11/04, 11/06 Continue Epogen 10k 3 times weekly Daily CBC Iron labs c/w chronic anemia HTN home cozaar increased to 100 daily Hold home coreg Metoprolol to 50 TID T2DM Sick Euthyroid state Recent A1c 11.2, repeat 9.5 Lantus 40U daily DM following, appreciate recs, custom q4h correction scale Carb control diet ordered No thyroid replacement necessary, repeat labs in 4-6 weeks Dispo: CV, full code Discussed with attending surgeon on rounds this morning. 11/14/2023 Between the hours of 1800 - 0600 and on the weekends please page [phone]. * Barbie Pelaez, RD - 11/14/2023 8:42 AM EDT Nutrition Progress Note Hyaden Russo is a 47 y.o. male with a PMH of inferior STEMI s/p PCI, IDDM2, HTN, HLD, CKD, former smoker. S/p CABGx3. Reason for Assessment: Follow-up Nutrition Recommendations: CHO level 2 (regular solids, thin liquids per RESEARCH STATISTICIAN recs 11/12) Monitor and encourage po intake - please document % po Monitor BM Liquid tylenol contains sugar alcohol(s) (sorbitol) that acts as a purgative. If stool output is excessive, consider switching to crushed tablet form. Mg and phos with daily labs Daily weights I was able to discuss plan with provider [facility] [id number] . Current Nutrition Regimen: Active Orders Diet Carb Control diet 60/60/75 CHO counting level 2 Frequency: Effective Now Number of Occurrences: Until Specified Assessment: Lab Results Component Value Date NA 139 11/14/2023 NA 138 09/22/2023 K 4.5 11/14/2023 K 4.9 09/22/2023 CL 103 11/14/2023 CL 106 09/22/2023 CO2 25 11/14/2023 CO2 22 09/22/2023 BUN 28 (H) 11/14/2023 BUN 34 (H) 09/22/2023 CREATININE 2.36 (H) 11/14/2023 CREATININE 2.83 (H) 09/22/2023 ESTGFR 27 (L) 09/22/2023 MAGNESIUM 0.76 11/14/2023 MAGNESIUM 0.98 06/07/2023 CALCIUM 8.7 11/14/2023 CALCIUM 9.3 09/22/2023 PHOS 3.9 11/14/2023 AST 47 (H) 11/11/2023 AST 19 09/22/2023 ALT 39 11/11/2023 ALT 18 09/22/2023 ALKPHOS 142 (H) 11/11/2023 ALKPHOS 97 09/22/2023 BILITOT 0.3 11/11/2023 BILITOT 0.3 09/22/2023 BILIDIR <0.2 11/11/2023 BILIDIR 0.1 09/22/2023 TRIG 464 11/03/2023 TRIG 405 06/05/2023 HA1C 9.5 (H) 10/31/2023 HA1C 11.2 (H) 06/05/2023 25OHVITD 9 (L) 11/04/2023 IRON 14 (L) 11/04/2023 Lab Results Component Value Date POCGLU 260 (H) 11/14/2023 POCGLU 139 11/14/2023 POCGLU 146 11/13/2023 POCGLU 201 (H) 11/13/2023 POCGLU 147 11/13/2023 POCGLU 206 (H) 11/13/2023 POCGLU 182 11/13/2023 Patient Lines/Drains/Airways Status Active Nutritional LDAs Name Placement date Placement time Site Days PIV 11/03/23 1659 20 gauge basilic vein (medial side of arm), right 11/03/23 1659 -- 11 Percutaneous Central Line 11/05/23 1130 Triple Lumen 12 Fr internal jugular vein, right 11/05/23 1130 -- 9 Urethral Catheter 11/06/23 1251 100% silicone 10 10 11/06/23 1251 -- 8 Oxygen Therapy / Airway Device: Nasal cannula Shift Pressure Injury Prevention Occiput: No Injury Thoracic Spine: No Injury Sacral: No Injury Ischial - left: No Injury Ischial - right: No Injury Heel - left: No Injury Heel - right: No Injury Elbow - left: No Injury Elbow - right: No Injury Last Bowel Movement: 11/13/23 Intake/Output Summary (Last 24 hours) at 11/14/2023 0846 Last data filed at 11/14/2023 0600 Gross per 24 hour Intake 761.33 ml Output 2220 ml Net -1458.67 ml Relevant medications: Continuous bicarbonate CRRT with 4 mEq/L K+, 3 mEq/L Ca++ Stopped (11/13/23 1800) potassium phosphate 25 mL/hr (11/13/23 0347) calcium gluconate Stopped (11/05/23 1318) NORepinephrine Stopped (11/09/23 0049) Scheduled [START ON 11/15/2023] losartan 100 mg Oral Daily losartan 25 mg Oral Once ferrous sulfate EC 325 mg Oral Daily with breakfast polyethylene glycoL (MIRALAX) oral powder 17 g Oral Daily metoprolol tartrate 50 mg Oral Q8H ISAMAR insulin glargine (Lantus;Semglee) (100 unit/mL) subcutaneous injection 40 Units Subcutaneous Q24H insulin lispro 0-8 Units Subcutaneous TID WC AMIOdarone 200 mg Oral BID ipratropium-albuteroL 3 mL Nebulization Q4H atorvastatin 40 mg Oral QPM QUEtiapine 50 mg Oral Nightly insulin lispro 1-11 Units Subcutaneous Q4H ISAMAR acetaminophen 1,000 mg Oral Q6H ISAMAR aspirin 81 mg Per NG tube Daily Or aspirin 300 mg Rectal Daily epoetin sha-epbx 10,000 Units Subcutaneous Once per day on Monday vitamin B Complex-vitamin C-folic Acid 1 tablet Oral Daily ergocalciferoL (vitamin D2) 50,000 Units Per NG tube Weekly clopidogreL 75 mg Oral Daily pantoprazole EC 40 mg Oral Daily Or pantoprazole 40 mg Intravenous Daily senna-docusate 2 tablet Oral Daily lidocaine 1 patch Transdermal Q24H PRN glucose 40% oral geL OR dextrose OR glucagon, heparin (porcine), hydrALAZINE, sodium chloride 0.9%, sodium chloride 0.9%, ondansetron, bisacodyL, potassium chloride in water OR potassium chloride in water OR potassium chloride in water, HYDROmorphone OR HYDROmorphone, HYDROmorphone, HYDROmorphone Anthropometrics: Admit Weight: 128.91 kg Estimated body mass index is 37.04 kg/m?? as calculated from the following: Height as of this encounter: 177.8 cm (5' 10). Weight as of this encounter: 117.1 kg (258 lb 2.5 oz). [place] Body Weight (IBW) (kg): 75.45 Wt Readings from Last 10 Encounters: 11/14/23 117.1 kg (258 lb 2.5 oz) 09/22/23 123.3 kg (271 lb 14.4 oz) 09/12/23 122.1 kg (269 lb 3.2 oz) 08/04/23 121.2 kg (267 lb 4.8 oz) 06/07/23 118.5 kg (261 lb 3.9 oz) 11/27/18 99.8 kg (220 lb) 10/14/18 99.8 kg (220 lb 0.3 oz) Patient Vitals for the past 168 hrs: Weight 11/14/23 0625 117.1 kg (258 lb 2.5 oz) 11/13/23 0200 122.1 kg (269 lb 2.9 oz) 11/12/23 0615 124.1 kg (273 lb 9.5 oz) 11/11/23 0600 125.9 kg (277 lb 9 oz) 11/10/23 0427 127.9 kg (281 lb 15.5 oz) 11/09/23 0310 130.5 kg (287 lb 12.6 oz) 11/08/23 0554 133.7 kg (294 lb 12.1 oz) Weight Source: Bed Estimated / Assessed Needs: Kcal / K - 2342 Kcal (16 Kcal/Kg - 20 Kcal/Kg) Estimated Protein Needs: 113 g - 151 g (1.5 g/Kg - 2.0 g/Kg IBW) Nutrition intake and intake history / interview: 11/13: TF discontinued yesterday and CRRT stopped. Visited with Ambrocio and his this morning, reports feeling tired - visit kept short. He reports a good appetite today. He had half the scrambled eggs, 2 sausage links, an orange, and most of the toast for breakfast today. Reports some abd pain r/tfrequent BMs (receiving liquid tylenol). Encouraged good po/protein intake for healing. Declines standing snacks at this time. 11/08: TF at goal. Continues on CRRT. BM output increasing, liquid meds noted. 11/06: Per team, starting CRRT today - updated TF recs. 11/05: TF at goal. Off propofol, TG of 464. Started on CRRT, held today. LBM 11/02. 11/02: Consulted for TF recs. Per team, starting trickle TF today. NPO x 5 days. Nutrition Focused Physical Exam: Not performed Reason NFPE Not Performed: Patient not available at time of assessment. Malnutrition Diagnosis: Not enough data to assess (CHANEL Feliz J Parenteral Enteral Nutr. 2011; 36(3): 273-83) Nutrition to continue to follow up while inpatient Thank you, Barbie Pelaez, MS, RD, LD, [facility] Clinical Nutrition * Bryanna Melton RCP - 11/13/2023 2:36 PM EDT 11/13/23 0853 Oxygen Therapy O2 Device (S) NC (NIV pullled not wearing) O2 Flow Rate (L/min) 3 L/min SpO2 94 % Resp 30 Pt on 3L jose l well Pt had V60 in room that hadn't been worn since 11/09. Pulled V60 Pt has orders for duoneb q 4 jose l well B/S diminished Will continue to follow pt * Donavon Frey MD - 11/13/2023 2:18 PM EDT HYPERTENSION/ NEPHROLOGY PROGRESS NOTE PATIENT: Hayden Russo : 1975 REASON FOR CONSULTATION: DONAL Hayden Russo is a 47 y.o. male seen for DONAL. He was on shift CVVH for volume overload. Started making more urine and after 40 mg IV lasix is making 75-120 ml urine per hour. Overall feeling all right when I saw him in the ICU. Last value Range last 8 hrs Temperature Temp: 37.2 ??C (99 ??F) Temp: [37.1 ??C (98.7 ??F)-37.2 ??C (99 ??F)] Heart Rate Heart Rate: (!) 120 Heart Rate: [108-120] Blood Pressure BP: 163/83 BP: (146-173)/(64-86) Respiratory Rate Resp: 24 Resp: [18-29] SpO2 SpO2: 93 % SpO2: [91 %-95 %] Awake alert Chest clear B/L edema noted Last 3 wbc, hgb, hct plt Recent Labs 11/13/23 0009 11/12/23 0009 11/11/23 0012 WBC 14.34* 15.72* 21.85* HGB 8.5* 8.4* 8.8* HCT 27.7* 27.4* 28.4* PLATELET 306 310 307 Last 3 Lytes Recent Labs 11/13/23 1605 11/13/23 0009 11/12/23 0009 NA 140 139 140 K 4.7 4.4 4.4 CL 105 107 105 CO2 24 24 BUN 24* 18 19 CREATININE 1.93* 1.37 1.40 A/P: DONAL with volume overload- CVVH transitioned to shift CVVH. Making good urine with diuretics and made 75-100 ml urine with 40 mg IV lasix.. Recommended another 60 mg around noon and if he has made around 1500 ml by evening can hold off CVVH and give another dose of 60 mg lasix to target a net negative of 2 L by tomorrow morning. Discussed with Aby Williamson APRN. Renal insufficiency- Baseline creatinine around 2.5, creatinine continues to rise after being of CVVH. Electrolytes- sodium and K are within normal limits Bone mineral- calcium, magnesium and phos within normal limits. * Natalie Martin, PT - 11/13/2023 1:41 PM EDT Physical Therapy Note Treatment Number PT: 2 Patient profile: Hayden Russo is a 47 y.o. male with CAD who is 14 Days Post-Op CABGx3. PMH of inferior STEMI s/p PCI, IDDM2, HTN, HLD, CKD, former smoker. 24h Events: Continues cvvh Htn increased metop and add losartan On carb control diet, eating, TF running Stood at bedside Social History: Pt lives with in an apt with FOS to enter, they have a walker and a cane if needed. Precautions/Special Considerations: sternal precautions, CVVHD, a-line, todd, PIV Mobility and Positioning Recommendations: Mechanical lift to chair at this time Bed/chair position. Impproved Subjective: I feel like I'm going to throw up. Objective: Patient seen for physical therapy and demonstrated the following: Pain: 4/10 pain it's my butt that hurts, from sitting in this chair Mental Status: alert, oriented, appropriate, guarded, a little nervous about being on his feet, needs encouragement Vital Signs: SpO2: 92-93 % on 3L for walk HR: 122-135 BP: 157/66 rest; 163/72 post walk (nurse aware) Exercises: completed ankle pumps, knee extension, overhead reaches cervical flexion/ext and rotation; encouraged to keep working on these exercises on his own Instructed in sternal precautions and rationale. Instructed in sit to stand technique and was able to come to stand with mod A x2. Ambulated about 10 ft into hallway with min /Mod A x2 with FWW, sat and rested in CC. Gait: slow, guarded, decreased step length B Stood again and ambulated back to bed, 10 ft Transferred sit to supine with mod/max A x2 Pt left R sidelying in bed Education: reviewed sternal precautions and rationale, DB and coughing exs, Assessment: Hayden Russo was seen today for physical therapy treatment session for continuation of POC. Improved hemodynamics today(though still somewhat tachycardic and hypertensive). Was able to tolerate mobilizing outside of his room for first walk(guarded, slow, fearful) on RA. Pt was able to take good weight and should progress well given frequent opportunities to move safely. Will see how he progresses over the next few days to give a better idea of his d/c needs. Needs ongoing encouragement for deep breathing and coughing. Inpatient Physical Therapy Plan: 3-5 times/wk -post-op stretching and breathing exs, Discharge Recommendations: Based on current findings- to be determined pending medical status &functional progression Consult Recommendations: No other consults recommended at this time. Equipment needs: to be determined Goals: To be achieved by 11/24/23: Pt. to demonstrate knowledge of safety limitations and precautions and will appropriately request assistance for functional activities as appropriate. Pt able to complete functional activities with tolerable level of pain and stable vital signs. Pt. to demonstrate understanding of appropriate stretching and strengthening exercises. Pt. to perform bed mobility with min A. Pt. to perform sit to stand transfers with supervision using a front wheeled walker. Pt. to ambulate 100ft with CGA using a a front wheeled walker. Time IN / OUT: 2555-7472 Total Minutes, Physical Therapy: 33 Billing Code: te-s, te-f NATALIE MARTIN PT Pager: [phone] Physical Therapy Inpatient Rehabilitation Department * Michelle Pretty, FARM EQUIPMENT OPERATOR - 11/13/2023 11:30 AM EDT Glucose Management Team Inpatient Progress Note HPI Hayden Russo is a 47 y.o. male from [place], [place], with PMH significant for ASCVD-CAD (2019 STEMI w/PCI - RCA stent, then occluded and re-stented 05/2023), CKD (eGFR 33), Pancreatitis w/hospitalization ~05/2023, IDDM2 poorly controlled (A1c 9.5% 10/2023), who was admitted on 10/30/2023 currently being treated for re-occlusion of stents, now s/p 10/29 CABG X3. Original consult completed: 10/31/2023 Patient Interview & Updates Ambrocio is doing better overall - he started a Carb Controlled 60/60/75g diet 11/11 midday, and will behaving TF stopped today. He at BF late, and got insulin late. Glargine reduced from 50 u to 40u yesterday due to BG <100 especially in the setting of paused tube feeds for NPO - BG improved overnight. Ambrocio is able to talk and share a history about diabetes today. He confirmed that he was taking Farxiga 10mg, insulin glargine (Basaglar) 56u QHS, and typically Humalog 20-30u 2-3 times daily for meals (no carb count or correction scale). He was prior on Ozempic, however was hospitalized for pancreatitis in May and Ozempic stopped. Objective Temp: [36.9 ??C (98.4 ??F)] Heart Rate: [68-96] Resp: [13-29] BP: (109-149)/(49-64) SpO2: [90 %-99 %] Heart Rate from SpO2: -- Wt Readings from Last 3 Encounters: 11/13/23 122.1 kg (269 lb 2.9 oz) 09/22/23 123.3 kg (271 lb 14.4 oz) 09/12/23 122.1 kg (269 lb 3.2 oz) Current Regimen from Yesterday Insulin glargine 40u QD at 1800 (decreased 11/11) Lispro for Correction: Custom 1:15 >140 Q4hrs Lispro for Meals: 1 unit for every 10g carbohydrate; Hold if NPO or BG <70. Lispro for TF: TUBE FEED ASSOCIATED For Peptamen AF tube feed - 112 grams of carbohydrate per 1000 cc - Goal rate 75mL/hr HOLD if tube feed not running HOLD if BG less than 80 Based on 1:3.5 I:C ratio TO COVER THE NEXT 4 HOURS OF TUBE FEEDS 25-34 mL/hr give 6 units every 4 hours 35-44 mL/hr give 7 units every 4 hours 45-54 mL/hr give 8 units every 4 hours 55-64 mL/hr give 9 units every 4 hours 65-75 mL/hr give 10 units every 4 hours If greater than 75 or change in tube feed call for new orders. Carb Controlled 60/60/75g Monitoring: BG Q4hrs Diet: Carb Controlled 60/60/75g Relevant Meds: TF (Peptamen AF 112g/1000mL, goal rate 75ml/hr)- stopped this AM; Prior: 10/29 1811 - D10 w/10u Regular insulin for hyperkalemia; Norepinephrine in D5% 10/29-0003 10/30);Epinephrine in D5%; Milrinone in D5%; chlorothiazide in D5; Dopamine in D5% (11/05-11/08); Chlorothiazide in D5%(intermittent doses) TDD: 11/11: 60u (40u basal, 19u TF, 0u meal, 1u correction) 11/10: 53u 11/09: 68u 11/08: 132u Recent Glucose Levels Recent Labs 11/13/23 0402 11/13/23 0008 11/12/23200411/12/23 1627 11/12/23 0812 11/12/23 0407 11/12/23 0204 11/12/23 0008 11/11/239 11/11/23 1634 11/11/23 0842 11/11/23 0406 POCGLU 137 91 109 128 97 85 82 85 114 140 145 146 ASSESSMENT Hayden Russo is a 47 y.o. years old male with PMH significant for IDDM2 (Last A1C of 11.2% 05/2023) who was admitted on 10/30/2023 for re-occlusion of stents, now s/p 10/29 CABG X3. Diabetes poorlycontrolled and complicated by acute illness. Currently variable blood glucose levels while hospitalized requiring adjustment of insulin regimen and DM medications. Ambrocio is doing much better, and is able to stop tube feeds for now. He has started a Carb [id number]/60/75g diet, and breakfast went well. TF insulin DCd as well, and overall insulin needs may trend down off tube feeds. Based on his current TDD ~60 units, he likely will need less aggressive correction off tube feeds as well. No hypoglycemia overnight on lower glargine dose. For now, plan to continue same doses, and we will continue to evaluate his insulin dose adjustments needed for discharge, and likely decrease to Moderate correction if BG <100 after corrections, and increase meal doseto 1:8g if BG >180 after meals. He would appreciate a correction chart for his Humalog, so DC instructions drafted below. Team updated with recommendations. RECOMMENDATIONS: Insulin glargine 40u QD at 1800 Lispro for Correction: Custom 1:15 >140 Q4hrs Consider Moderate 1:20 >140 Q4hrs if BG <100 after corrections. Lispro for Meals: 1 unit for every 10g carbohydrate; Hold if NPO or BG <70. Consider 1:8g ICR (0-10u range) if BG >180 after meals. STOP Lispro for TF - TF DCd Carb Controlled 60/60/75g diet Monitoring: BG Q4hrs Diet: Carb Controlled 60/60/75g Discharge Planning/intermediate diabetes care: Medications - Outpatient treatment regimen recommendations pending based on the hospital course. Home: Confirmed 11/12 Farxiga 10mg QD - likely restart at discharge. Insulin glargine (Basaglar) 56u QD - discharge on hospital dose Humalog 20-30u TID w/meals - Needs meal base dose with correction scale. No Ozempic since May/ pancreatitis. Monitoring BG tid ac & hs Follow-up: PCP 50 minutes were spent over the course of the day with this patient encounter including time spent in chart review and relevant lab result review, assessment of and counseling with the patient on diabetes and treatment plan, reviewing all glucose and insulin data, and coordination with the consulting service. Michelle Pretty, FARM EQUIPMENT OPERATOR, DNP, -[facility] Inpatient Diabetes Management Team Team pager #[phone] (DRAFT) Diabetes Discharge Instructions & Recommendations Check blood sugars when you wake up, before meals, bedtime, anytime you don't feel well. See new doses below for insulin glargine (Basaglar) and Humalog Follow-up with your diabetes provider for insulin adjustments if blood sugars are under 80 or over 200 after discharge. Instructions for insulin glargine (Basaglar) Insulin (LONG ACTING) Please inject Basaglar 40 units every morning. If your fasting blood sugars are above 150mg/dl two days in a row, please increase your Lantus by 2units. If your fasting blood sugars are below 90mg/dl two days in a row, please decrease your Lantus by 2 units. This dose now becomes your new daily dose unless it need to be further adjusted based on future glucose readings. Instructions for insulin lispro (Humalog) Mealtime & Correction Insulin Test your blood sugar ideally 15 minute before you plan to eat. Please inject a base dose of Humalog 10 units with meals. If you are eating a larger meal, please increase your Humalog to 14 units. If you are eating a smaller meal, please decrease your Humalog to 6 units. If you are not eating any carbohydrates or skipping a meal, please skip base dose of Humalog. Based on the scale below, add up the additional units you need for your current blood sugar reading- - this is based on a correction of 1 unit to lower your blood sugar 20 points: BG under 80 Subtract 2 units from your food dose, and eat right away. BG 80 - 100 Subtract 1 unit from your food dose and give just before eating. BG 100 - 160 Give your meal dose only if eating; BG 161 - 180 Give 2 units BG 181 - 200 Give 3 units BG 201 - 220 Give 4 units BG 221 - 240 Give 5 units BG 241 - 260 Give 6 units BG 261 - 280 Give 7 units BG 281 - 300 Give 8 units BG greater than 300, give 9 units and recheck BG in 2 hours. Call your diabetes provider if blood sugar continues over 250 4hrs after correction dose. Treatment of Low Blood Sugar (Hypoglycemia) 15:15 rule - if your blood sugars is under 80, eat 15g of sugar, and recheck your blood sugar in 15minutes. If you continue to be under 80 after 15 minutes, eat 15g of sugar more, and repeat. If BG is over 100 on recheck, no need to consume more sugar, and recheck BG in another 15 minutes. If your BG is lower than 80, you are likely to feel shaky, sweaty and lightheaded. This is a signalthat your body needs more sugar. Quickly eat or drink a 15g of something sweet, such as: 4 ounces fruit juice or regular (not diet) soda 6 Voxel.pls small box of raisins 4 glucose tablets (~15 gm of glucose) If your BG is very low <50, you can double the amount above or take 30 gm of glucose gel/tablets. Once you are feeling better, try to determine why your BG was so low. Common causes of hypoglycemiainclude skipping a meal, lots of exercise, too much insulin or any combination of these things. Understanding the cause my help you to avoid another low BG in the future. Test blood sugars prior to driving, make sure glucose levels are greater than 100mg/dl. If not havea snack and retest blood sugars in 15 minutes. Carry a glucose source on you at all times. Call your diabetes provider for blood sugars less than 80 or greater than 300 twice in one day to have your insulin doses adjusted. * Dione Herrera, RESEARCH STATISTICIAN - 11/13/2023 9:40 AM EDT Speech Therapy Progress Note Patient Profile: Hayden Russo is a 47 y.o. male with CAD who is Post-Op CABGx3. PMH of inferior STEMI s/p PCI, IDDM2, HTN, HLD, CKD, former smoker. Extubated 11/10/23; Clinical Swallow Evaluation deferred 11/10/21 due to abdominal pain, CT abdomen: no obstruction. Evaluated 11/12/23 and cleared for Regular diet w/ energy conservation strategies. Noted to be tolerating well during re-check 11/13/23. Plan for x1-2 more f/u then DC if continues to lauro. Prior Level of Swallow Function: WFL Subjective: I'm doing pretty well w/ my eating. RN denies any difficulty w/ swallowing meds. Objective: Pt seen for dysphagia management today. Pain: c/o pain w/ sitting Respiratory Status: RA 90%. Current Diet: Carb Control diet 60/60/75 CHO counting level 2 Feeding and Oral Care: Pt likely requires setup assistance Cognitive-Linguistic Status: No overt cognitive deficits noted at this time Orientation Log Positioning: up in chair Oral Motor Exam: WFL Impaired Comments STRUCTURES Facial Symmetry x Lips x Tongue x Jaw x Palate/Velum x Dentition x OTHER Phonation x Intelligibility x Volitional Cough x Sensation x Secretion Management x Bolus Presentation(s): Breakfast tray Tested Comments Thin liquids x By straw [place] thick liquids Honey thick liquids Pureed solids Dysphagia soft x Mechanical soft Regular solids x Pills Other Oral Preparatory Phase Mastication: slow but adequate Oral Transit: WFL Bolus Cohesion: WFL Oral Containment: WFL, adequate lip seal and draw up on straw, no anterior spillaged Oral Stasis: Not noted Pharyngeal Phase Laryngeal Elevation: Subjectively prompt and complete to palpation and auscultation Vocal quality change: Not noted Cough / throat clear: Not noted Pt. complaint of food getting stuck: Pt denies Fatigue across trials: Not noted Respiratory rate and respiratory swallow pattern: Pt going slowly, using energy conservation strategies well as taught Esophageal Phase Appears to be WFL, No overt clinical s/s of esophageal phase dysphagia noted during this evaluation. Compensatory Techniques: The following strategies were shown to be effective: Energy Conservation Pt demonstrated independent use of strategies Education: Patient educated on role of the RESEARCH STATISTICIAN, reason for evaluation, findings and plan of care, and compensatory strategies. Patient status, treatment and swallow recommendations were discussed with nursing. Assessment: Pt seen for f/u for dysphagia mangement. Oral motor examination was unremarkable, mild dysphonia noted 11/12/23 has resolved. Oral phase of swallow was WFL. Pharyngeal phase of swallow demonstrating mild clinical s/s dysphagia related to reduced coordination of breathing and swallowing. Pt able to compensate w/ energy conservation strategies which he demonstrated using independently after teaching. No family currently in room. Diagnosis: suspected mild pharyngeal dysphagia (resolving), mild dysphonia (resolved) Recommendations: Diet: Regular solids, Thin liquids PO medications: whole with sip of liquid Aspiration precautions: Upright position during meals and for at least 30 mins following Excellent oral care x2/day recommended to prevent oral bacterial growth, oral built up of dried secretions and reduce risk for aspiration pneumonia Follow Energy Conservation Strategies (Sit upright for all PO; take your time; take small, single bites / sips and catch your breath fully between; consider small, high calorie snacks rather than large meals if you begin to fatigue with meals; consider increasing O2 w/ meals if you consistently become short of breath when eating) Pt will benefit from continued RESEARCH STATISTICIAN services while hospitalized Speech Therapy Goals: (To be met by discharge) Pt will tolerate least restrictive diet consistency without evidence of dysphagia / aspiration. MET Pt / caregiver will be independent with aspiration precautions, diet modifications, and safe swallowing strategies. MET Pt/caregivers will follow anti-delirium precautions independently with assist from staff as needed ONGOING Plan: Therapy Frequency (RESEARCH STATISTICIAN Eval): Monitor (until tolerating Reg solids/liquids on floor status) Pt./family are in agreement with treatment plan. Total Minutes (Speech Language Pathology): 24 Thank you for this consult with this patient. Please feel free to page me with any questions or concerns. Dione Herrera MA, [facility]-RESEARCH STATISTICIAN Pager: [phone] Speech-Language Pathology Inpatient Rehabilitation Medicine * Aby Williamson, FARM EQUIPMENT OPERATOR - 11/13/2023 9:37 AM EDT Cardiac Surgery Progress Note Hayden Russo is a 47 y.o. male with CAD who is 14 Days Post-Op CABGx3. PMH of inferior STEMI s/p PCI, IDDM2, HTN, HLD, CKD, former smoker. 24h Events: Continues cvvh Htn increased metop and add losartan On carb control diet, eating, TF running Stood at bedside S: Doing ok. Now on NC. Weepy at times, sleeping this am better than last night. Denies n/v, fever,chills, SOB, CP. O: Temp: [36.9 ??C (98.4 ??F)] Heart Rate: [68-96] Resp: [13-30] BP: (109-149)/(49-64) SpO2: [90 %-99 %] Heart Rate from SpO2: -- 11/11 0701 - 11/12 0700 In: 2800 [P.O.:230; I.V.:1140.5] Out: 3482 [Urine:1035] Admit weight: 128.91 kg Current weight: Weight: 122.1 kg (269 lb 2.9 oz) Physical Exam: General: Semi reclined in bed. Smiling. Conversant Neuro: Moves all extremities weakly. PERRL. Alert Lungs: NC, good sats, LS dim t/o Heart: RRR, sinus 80's Abdomen: Obese, rotund, nontender, +bs +flatus Ext: WWP, 1+ edema Incisions: ASPHALT TAMPER CDI Tubes/Lines/Drains: RIJ HD line, Perez Thibodeaux, PIV Assessment/Plan: 47 y.o. male 14 Days Post-Op CABGx3 MV CAD s/p CABGx3 RV dysfunction ASA / Plavix Statin CPAP as needed, NC otherwise CVVH to shift therapy with lasix 40 iv x 1 this am will run filter overnight Dc DHT PT/OT DC MORELIA Seroquel nightly for sleep Metoprolol increase to 50 tid Heparin gtt for DVT prophylaxis, low dose Post operative acute hypoxemic respiratory failure Now on NC Sputum, BC NGTD Completed 6 days zosyn Scheduled albuterol Post operative atrial fibrillation related to cardiac surgery Amio 200 BID HEP GTT will need transition to coumadin vs eliquis likely triple therapy as on plavix/asa laready Acute on chronic renal insufficiency Hyperkalemia (resolved) Hyperphosphatemia Hypocalcemia Vit D deficiency continue CVVH change to shift therapy Lasix x 1 Daily BMPs Monitor UOP Nephrology following Avoid PICC placement Vitamin D 50k weekly Age indeterminate right peroneal DVT B/l LE duplex 11/02 with age indeterminate right peroneal DVT Heparin gtt bridge low dose Acute hypertriglyceridemia While on propofol Recheck triglycerides if propofol restarted Acute post-op blood loss anemia Anemia of CKD Transfused 1 unit 11/03 and 11/04, 11/06 Continue Epogen 10k 3 times weekly Daily CBC Iron labs c/w chronic anemia HTN home cozaar at 25' Hold home coreg Metoprolol to 50 tid T2DM Sick Euthyroid state Recent A1c 11.2, repeat 9.5 Lantus 40U daily DM following, appreciate recs, custom q4h correction scale Carb control diet ordered No thyroid replacement necessary, repeat labs in 4-6 weeks Dispo: CVCC, full code Discussed with attending surgeon on rounds this morning. 11/13/2023 Between the hours of 1800 - 0600 and on the weekends please page [phone]. * Tay Ewing MD - 11/13/2023 7:56 AM EDT STAFF PROGRESS NOTE Critical Care Medicine Author: Tay Ewing MD Patient seen and examined on critical care rounds. Hayden Russo is a 47 y.o. male with the following active issues:: Active Hospital Problems Diagnosis S/P CABG x 3 Respiratory failure with hypoxia Class 3 severe obesity in adult CKD (chronic kidney disease) DONAL (acute kidney injury) CAD (coronary artery disease) Diabetes mellitus Hypertension Resolved Hospital Problems No resolved problems to display. ASSESSMENT, MANAGEMENT, and DECISION MAKING: Patient ID: Hayden Russo is a 47 y.o. male with a history of ASCVD presenting with inferior STEMI s/p RCA PCI 2018 with recurrent RCA closures and repeat PCI (most recently July 2023), ischemic cardiomyopathy (LVEF 45%, RV dysfunction), poorly controlled IDDM2, chronic renal insufficiency (baseline creatinine in 2s), BMI 42, HTN, HLD, TUD in remission who is now s/p planned 3vCABG (GREENWOOD-LAD, SVG-OM2, SVG-RPDA) with Dr. Person on 10/30/23 with post-op course complicated by RV failure, cardiogenic shock, severe hypoxic respiratory failure and acute kidney injury on CKD. P - Respiratory failure improving. NC 3L C - S/p CABG x3. ST 120s, hypertensive -- uptitrate metoprolol. ASA/plavix, statin. - Acute renal failure, now non-oliguric. CRRT --> shift therapy (hopeful for renal recovery given robust urine output on dialysis). EXAM: Physical Exam Last value Range last 24 hrs Temperature Temp: 36.9 ??C (98.4 ??F) Temp: [36.7 ??C (98 ??F)-36.9 ??C (98.4 ??F)] Heart Rate Heart Rate: 85 Heart Rate: [68-96] Blood Pressure BP: 109/49 BP: (109-149)/(49-64) Respiratory Rate Resp: 17 Resp: [13-29] SpO2 SpO2: 96 % SpO2: [90 %-99 %] Art BP BP (Arterial Line): 135/56 BP (Arterial Line): (99-189)/(46-71) Last Ht 10/30/23 177.8 cm (5' 10) Last Wt 11/13/23 122.1 kg (269 lb 2.9 oz) Body mass index is 38.62 kg/m??. IS PATIENT CRITICALLY ILL ? Is there a high potential of sudden, clinically significant, or life threatening deterioration? Yes Is there a need for direct personal assessment and management to treat/prevent multiple vital organfailure/deterioration? Yes PATIENT IS CRITICALLY ILL WITH THESE DIAGNOSES BEING MANAGED BY CCS TEAM: Renal Disease/Failure Acute I personally performed 30 minutes of aggregate critical care time exclusive of procedures and teaching. This includes time spent during direct patient evaluation and reassessment, interpreting diagnostic tests, directing life and/or organ supporting interventions and documentation on the unit. Tay Ewing MD 11/13/2023 * Alice Stewart MD - 11/12/2023 1:58 PM EDT NEPHROLOGY PROGRESS NOTE Reason for consult: DONAL, volume overload. Interval History: Patient seen and examined in the ICU on CRRT. Clinical and laboratory data reviewed. Stable treatment. No issues with dialysis or access. and mother are at the bedside. Patient reports that he is cold and lonely at night. PE: Awake and alert. NAD. Distant heart sounds. Clear lungs on limited examination. Edema continues to improve. A/R: DONAL - Urine output improved further yesterday, as might be expected with decreased UF yesterday. Asnoted previously, if/when patient is transitioned to shift therapy, can consider augmenting urine output with diuretic. Metabolic labs - Metabolic labs are adequately controlled. Will continue current prescription. Alice Stewart MD Nephrology Pager: [phone] * Daniel Martin MD - 11/12/2023 12:45 PM EDT Cardiovascular Critical Care Attending Note Hayden Russo 1975 Age: 47 y.o. PCP: Bandar Hahn MD Date of Service: 11/12/2023 Date of Admission: 10/30/2023 Length of Stay Hospital Day 13 days Patient ID: Hayden Russo is a 47 y.o. male with a history of ASCVD presenting with inferior STEMI s/p RCA PCI 2018 with recurrent RCA closures and repeat PCI (most recently July 2023), ischemic cardiomyopathy (LVEF 45%, RV dysfunction), poorly controlled IDDM2, chronic renal insufficiency (baseline creatinine in 2s), BMI 42, HTN, HLD, TUD in remission who is now s/p planned 3vCABG (GREENWOOD-LAD, SVG-OM2, SVG-RPDA) with Dr. Person on 10/30/23 with post-op course complicated by RV failure, cardiogenic shock, severe hypoxic respiratory failure and acute kidney injury on CKD. The patient was seen and examined on critical care rounds. Hayden Russo is a 47 y.o. male with the following active issues: Cardiogenic shock Right ventricular failure, acute on chronic Acute hypoxic respiratory failure ASCVD s/p 3vCABG (GREENWOOD-LAD, SVG-OM2, SVG-RPDA; Dr. Person on 10/30/23) Acute on chronic HFpEF Ischemic Cardiomyopathy Acute renal failure, non-oliguric on CKD4 (baseline creatinine in the 2s) IDDM2, poorly controlled Obesity, Class 3 BMI 42 Distal RLE DVT (peroneal) INTERVAL HISTORY: Tolerating extubation RO for c diff NSR up to 100s ASSESSMENT, MANAGEMENT, and DECISION MAKING: Hayden Russo is a 47 y.o. male with a history of ASCVD presenting with inferior STEMI s/p RCA PCI 2018 with recurrent RCA closures and repeat PCI (most recently July 2023), ischemic cardiomyopathy (LVEF 45%, RV dysfunction), poorly controlled IDDM2, chronic renal insufficiency (baseline creatinine in 2s), BMI 42, HTN, HLD, TUD in remission who is now s/p planned 3vCABG (GREENWOOD-LAD, SVG-OM2, SVG-RPDA) with Dr. Person on 10/30/23 with post-op course complicated by RV failure, cardiogenic shock, severe hypoxic respiratory failure and acute kidney injury on CKD. Tolerating a trial of extubation. ABG with metabolic acidosis and respiratory alkalosis. Improved abdominal pain Looks much better overall More active today with range of motion oand OOB into chair WBC 15.7 Plt 310 Na 140 Cr 1.4 Restart enteral feeds Run CVVH negative -50 Needs a more permanent HD access Increase HTN rx MEDICATIONS: Scheduled Meds: insulin glargine (Lantus;Semglee) (100 unit/mL) subcutaneous injection 40 Units Subcutaneous Q24H losartan 25 mg Oral Daily metoprolol tartrate 37.5 mg Oral Q8H ISAMAR AMIOdarone 200 mg Oral BID ipratropium-albuteroL 3 mL Nebulization Q4H atorvastatin 40 mg Oral QPM QUEtiapine 50 mg Oral Nightly insulin lispro 6-10 Units Subcutaneous Q4H ISAMAR protein powder 2 Scoop Per NG tube TID insulin lispro 1-11 Units Subcutaneous Q4H ISAMAR acetaminophen 1,000 mg Oral Q6H ISAMAR aspirin 81 mg Per NG tube Daily Or aspirin 300 mg Rectal Daily epoetin sha-epbx 10,000 Units Subcutaneous Once per day on Monday ferrous sulfate 300 mg Oral Daily vitamin B Complex-vitamin C-folic Acid 1 tablet Oral Daily ergocalciferoL (vitamin D2) 50,000 Units Per NG tube Weekly clopidogreL 75 mg Oral Daily chlorhexidine 15 mL Oral BID pantoprazole EC 40 mg Oral Daily Or pantoprazole 40 mg Intravenous Daily senna-docusate 2 tablet Oral Daily lidocaine 1 patch Transdermal Q24H Continuous Infusions: heparin (porcine) infusion 750 Units/hr (11/12/23 1200) bicarbonate CRRT with 4 mEq/L K+, 3 mEq/L Ca++ 5 each (11/12/23 0500) dexmedeTOMIDine 0.8 mcg/kg/hr (11/12/23 1210) tube feeding diet 1,500 mL (11/12/23 0900) potassium phosphate 25 mL/hr (11/12/23 0111) calcium gluconate Stopped (11/05/23 1318) NORepinephrine Stopped (11/09/23 0049) EXAM: Last value Range last 24 hrs Temperature Temp: 36.7 ??C (98 ??F) Temp: [36.4 ??C (97.6 ??F)-37.5 ??C (99.5 ??F)] Heart Rate Heart Rate: 89 Heart Rate: [66-100] Blood Pressure BP: 134/55 BP: (134-151)/(55-62) Respiratory Rate Resp: 13 Resp: [13-25] SpO2 SpO2: 92 % SpO2: [91 %-97 %] Art BP BP (Arterial Line): 173/62 BP (Arterial Line): (111-189)/(49-71) Weights: Patient Vitals for the past 168 hrs: Weight 11/12/23 0615 124.1 kg (273 lb 9.5 oz) 11/11/23 0600 125.9 kg (277 lb 9 oz) 11/10/23 0427 127.9 kg (281 lb 15.5 oz) 11/09/23 0310 130.5 kg (287 lb 12.6 oz) 11/08/23 0554 133.7 kg (294 lb 12.1 oz) 11/07/23 0500 135.2 kg (298 lb 1 oz) 11/06/23 0449 134.1 kg (295 lb 10.2 oz) Tolerating extubation this am Chest coarse Cor rrr Abd slightly tender Ext warm IS THE PATIENT CRITICALLY ILL? Is there a high potential of sudden, clinically significant, or life threatening deterioration? Yes Is there a need for direct personal assessment and management to treat/prevent multiple vital organfailure/deterioration? Yes If this patient is not critically ill, the reason for continued hospitalization is NA. PATIENT IS CRITICALLY ILL WITH THESE DIAGNOSES BEING MANAGED BY Cardiology team providing critical care services ARDS PA Catheter Hyponatremia X Hypoxemic Resp Failure Cardiogenic Shock Hypernatremia Pneumonia req Ventilator Acute Myocardial Infarction Hyperkalemia Hypercarbic Resp Failure Subarachnoid Hemorrhage Acute Drug Ingestion / OD Respiratory Acidosis Traumatic Brain Injury X Acute Renal Failure Acute Resp Failure Coma Acute Liver Failure Metabolic Acidosis Stupor Thrombocytopenia Hypotension, Fluids Delirium Neutropenia Hypotension, Pressors Acute Encephalopathy Hypertensive Emergency Sepsis Ascites Req Treatment Malnutrition Septic Shock with SIRS Coagulopathy Req Treatment Anaphylaxis Active Hemorrhage I personally performed 35 minutes of aggregate critical care time exclusive of procedures and teaching. This includes time spent during direct patient evaluation and reassessment, interpreting diagnostic tests, directing life and/or organ supporting interventions and documentation on the unit. The time documented is independent of the care provided by the Cardiology/Cardiac Surgery attending of record. DANIEL MARTIN MD 11/12/2023 * Cooper Agudelo PA - 11/12/2023 12:20 PM EDT Cardiac Surgery Progress Note Hayden Russo is a 47 y.o. male with CAD who is 13 Days Post-Op CABGx3. PMH of inferior STEMI s/p PCI, IDDM2, HTN, HLD, CKD, former smoker. 24h Events: Continues cvvh, running even o/n Abd pain/bloating-thought to be from cpap AXR reassuring, abd labs OK, discomfort resolved this a.m. TFs held Seen by RESEARCH STATISTICIAN this a.m. HTN to 170-180 S: Doing ok. Now on NC. Speaks full sentences. My ass hurts. Denies n/v, fever, chills, SOB, CP. Up to chair and stood at bedside today O: Temp: [36.4 ??C (97.6 ??F)-37.5 ??C (99.5 ??F)] Heart Rate: [66-100] Resp: [13-25] BP: (134-151)/(55-62) SpO2: [91 %-97 %] Heart Rate from SpO2: -- 11/10 0701 - 11/11 0700 In: 1996.9 [I.V.:981.9] Out: 4 [Urine:940] Admit weight: 128.91 kg Current weight: Weight: 124.1 kg (273 lb 9.5 oz) Physical Exam: General: Semi reclined in bed. Smiling. Conversant Neuro: Moves all extremities weakly. PERRL. Alert Lungs: NC, good sats Heart: RRR, sinus 80's Abdomen: Obese, rotund, nontender Ext: WWP, 1+ edema Incisions: SAMUEL CDI Tubes/Lines/Drains: RIJ HD line, Perez Thibodeaux, PIV Assessment/Plan: 47 y.o. male 13 Days Post-Op CABGx3 MV CAD s/p CABGx3 RV dysfunction ASA / Plavix Statin CPAP as needed, NC otherwise Continue cvvh, run -50/h today, shift therapy ok per nephro when ready-not today Resume TFs Speech consult - ADAT-CHO PT/OT Seroquel nightly for sleep Metoprolol 37.5''' Heparin gtt for DVT prophylaxis, low dose Post operative acute hypoxemic respiratory failure Now on NC Sputum, BC NGTD Completed 6 days zosyn Scheduled albuterol Post operative atrial fibrillation related to cardiac surgery Amio 200 qd Single episode, will discuss A/C if has further episodes Acute on chronic renal insufficiency Hyperkalemia (resolved) Hyperphosphatemia Hypocalcemia Vit D deficiency continue CVVH -50/h today Daily BMPs Monitor UOP Nephrology following Avoid PICC placement Vitamin D 50k weekly Age indeterminate right peroneal DVT B/l LE duplex 11/02 with age indeterminate right peroneal DVT Heparin gtt bridge low dose Acute hypertriglyceridemia While on propofol Recheck triglycerides if propofol restarted Acute post-op blood loss anemia Anemia of CKD Transfused 1 unit 11/03 and 11/04, 11/06 Continue Epogen 10k 3 times weekly Daily CBC Iron labs c/w chronic anemia HTN Holding home lo Resume home cozaar at 25' Hold home coreg Metoprolol 37.5''' T2DM Sick Euthyroid state Recent A1c 11.2, repeat 9.5 Lantus 40U daily DM following, appreciate recs, custom q4h correction scale, TF correction No thyroid replacement necessary, repeat labs in 4-6 weeks Dispo: CVCC, full code Discussed with attending surgeon on rounds this morning. 11/12/2023 Between the hours of 1800 - 0600 and on the weekends please page [phone]. * Steve Vázquez MD - 11/12/2023 10:20 AM EDT Images from the original note were not included. Follow Up Diabetes Consult HPI Hayden Russo is a 47 y.o. male from [place], [place], with PMH significant for ASCVD-CAD (2019 STEMI w/PCI - RCA stent, then occluded and re-stented 05/2023), CKD (eGFR 33), IDDM2 poorly controlled (A1c 11.2% 05/2023), who was admitted on 10/30/2023 currently being treated for re-occlusion of stents, now s/p 10/29 CABG X3. Original consult completed: 10/31/2023 Interval Updates: Tube feeds have remained off since 11/09. Norepinephrine in dextrose has also been off since 11/08.BG slowly down trending over the last 24 hours, 70s-80s overnight most likely due to no nutrition or dextrose running. Patient was seen and evaluated by RESEARCH STATISTICIAN this morning, recommended regular diet with thin liquids as he had mild pharyngeal dysphagia during evaluation. Tube feed order restarted this morning. Objective Temp: [36.4 ??C (97.6 ??F)-37.5 ??C (99.5 ??F)] Heart Rate: [66-108] Resp: [16-27] BP: (134-151)/(55-62) SpO2: [91 %-97 %] Heart Rate from SpO2: -- Current Regimen Insulin glargine 50u QD at 1800 Lispro for Correction: Custom 1:15 >140 Q4hrs Lispro for TF: TUBE FEED ASSOCIATED For Peptamen AF tube feed - 112 grams of carbohydrate per 1000 cc - Starting 25mL/hr, and titratingup Q6hrs by 10mL, with Goal rate 75mL/hr HOLD if tube feed not running HOLD if BG less than 80 Based on 1:3.5 I:C ratio TO COVER THE NEXT 4 HOURS OF TUBE FEEDS 25-34 mL/hr give 6 units every 4 hours 35-44 mL/hr give 7 units every 4 hours 45-54 mL/hr give 8 units every 4 hours 55-64 mL/hr give 9 units every 4 hours 65-75 mL/hr give 10 units every 4 hours If greater than 75 or change in tube feed call for new orders. When able to take PO, recommend adding Carb Controlled 60/60/75g diet and meal associated lispro Monitoring: BG Q4hrs Diet: NPO TDD 11/10: 54u 11/09: 68u 11/08: 132u (50u basal, 60u TF, 22u correction) 11/07: 130u 11/06: 89u Recent Glucose Levels Recent Labs 11/12/23 0812 11/12/23 0407 11/12/23 0204 11/12/23 0008 11/11/23 2029 11/11/23 1634 11/11/23 0842 11/11/23 0406 11/11/23 0011 11/10/23 2010 11/10/23 1650 11/10/23 0411 POCGLU 97 85 82 85 114 140 145 146 151 162 162 176 ASSESSMENT Hayden Russo is a 47 y.o. year old male with PMH significant for IDDM2 (Last A1C of 11.2% 05/2023) who was admitted on 10/30/2023 for re-occlusion of stents, now s/p 10/29 CABG X3. Diabetes poorly controlled and complicated by acute illness. Currently variable blood glucose levels while hospitalized requiring adjustment of insulin regimen and DM medications. BG have been more stable <180 with tube feeds paused for several days initially for extubation then for risk of re-intubation and then dysphagia. BG has been downtrending over the weekend without nutrition nor dextrose that was running in NE. Seen by RESEARCH STATISTICIAN today, recommended regular diet and thin liquids. TF restarted. TF associated lispro was not given when TFs were restarted. Would assume BG will stabilize now with continued nutrition but given insulin requirements have significantly decreased with borderline hypoglycemia this morning, will decrease glargine from 50 U to 40 U starting today. PLAN Recommend decreasing Insulin glargine from 50 U to 40 U QD at 1800 Lispro for Correction: Custom 1:15 >140 Q4hrs Lispro for TF: TUBE FEED ASSOCIATED For Peptamen AF tube feed - 112 grams of carbohydrate per 1000 cc - Goal rate 75mL/hr HOLD if tube feed not running HOLD if BG less than 80 Based on 1:3.5 I:C ratio TO COVER THE NEXT 4 HOURS OF TUBE FEEDS 25-34 mL/hr give 6 units every 4 hours 35-44 mL/hr give 7 units every 4 hours 45-54 mL/hr give 8 units every 4 hours 55-64 mL/hr give 9 units every 4 hours 65-75 mL/hr give 10 units every 4 hours If greater than 75 or change in tube feed call for new orders. When able to take PO, recommend adding Carb Controlled 60/60/75g diet and meal associated Lispro Monitoring: BG Q4hrs Diet: NPO Discharge Planning/salvage determiner diabetes care: Medications - Outpatient treatment regimen recommendations pending based on the hospital course. Home: These doses need clarification when patient able to communicate. Farxiga 10mg QD - likely restart at discharge. Insulin glargine (Basaglar) pen Humalog 20u TID w/meals No Ozempic since May - unknown reason. Monitoring BG tid ac & hs Follow-up: PCP Patient case discussed with Dr. Vázquez. Josee Vernon MD. PGY4 [facility] Endocrinology I have reviewed Dr Vernon's history and I agree with the details as written. The assessment and planwere formulated in discussion with me and I agree with them as documented. Steve Vázquez MD Wood Form Builderstructural test engineer Endocrinology Section [facility] * Lolly-Dione Stoner SLP - 11/12/2023 9:34 AM EDT Speech Therapy Clinical Swallow Evaluation Patient Profile: Hayden Russo is a 47 y.o. male with CAD who is Post-Op CABGx3. PMH of inferior STEMI s/p PCI, IDDM2, HTN, HLD, CKD, former smoker. Extubated 11/10/23; Clinical Swallow Evaluation deferred yesterday due to abdominal pain, CT abdomen: no obstruction. Prior Level of Swallow Function: WFL Subjective: RN He's doing a lot better today. He voice sounds much stronger. You could hardly hear him yesterday. Pt: I'll take it slow. Don't worry. Objective: Pt seen for evaluation today. Pain: Patient c/o some back pain from being in bed so long, RN aware and providing pain meds via DHT. Respiratory Status: Nasal canula 3 L/min saturating at 97%. Vision: Functional for evaluation, not formally assessed, wears glasses but doesn't have them w/ him right now I can see the whiteboard if I squint. Hearing: Functional for evaluation Current Diet: NPO diet (Hold Meds); DHT Feeding and Oral Care: Pt likely requires setup assistance Cognitive-Linguistic Status: No overt cognitive deficits noted at this time Orientation Log Positioning: HOB at 65 degrees Oral Motor Exam: WFL Impaired Comments STRUCTURES Facial Symmetry x Lips x Tongue x Jaw x Palate/Velum x Dentition x OTHER Phonation x Mild hoarseness Intelligibility x Volitional Cough x Sensation x Secretion Management x Thick phlegm initially, clearing w/ [place], improved w/ ice chips, water Bolus Presentation(s) Tested Comments Thin liquids x Ice chips, water by straw [place] thick liquids Honey thick liquids Pureed solids x Dysphagia soft x Mechanical soft Regular solids x Pills Other Oral Preparatory Phase Mastication: slow but adequate Oral Transit: WFL Bolus Cohesion: WFL Oral Containment: WFL, adequate lip seal and draw up on straw, no anterior spillaged Oral Stasis: Not noted Pharyngeal Phase Laryngeal Elevation: Subjectively prompt and complete to palpation and auscultation Vocal quality change: Not noted Cough / throat clear: Not noted Pt. complaint of food getting stuck: Pt denies Fatigue across trials: Not noted Respiratory rate and respiratory swallow pattern: Pt going slowly, using energy conservation strategies well as taught Esophageal Phase Appears to be WFL, No overt clinical s/s of esophageal phase dysphagia noted during this evaluation. Compensatory Techniques: The following strategies were shown to be effective: Energy Conservation Pt demonstrated independent use of strategies Education: Patient educated on role of the RESEARCH STATISTICIAN, reason for evaluation, findings and plan of care, and compensatory strategies. Patient status, treatment and swallow recommendations were discussed with nursing. Assessment: Pt seen for clinical swallow evaluation. Oral motor examination was unremarkable exceptfor mild dysphonia (improved from 11/11/23 as per RN). Oral phase of swallow was WFL. Pharyngeal phase of swallow demonstrating mild clinical s/s dysphagia related to reduced coordination of breathingand swallowing. Pt able to compensate w/ energy conservation strategies which he demonstrated usingindependently after teaching. No family currently in room. Diagnosis: suspected mild pharyngeal dysphagia, mild dysphonia Recommendations: Diet: Regular solids, Thin liquids PO medications: whole with sip of liquid Aspiration precautions: Upright position during meals and for at least 30 mins following Excellent oral care x2/day recommended to prevent oral bacterial growth, oral built up of dried secretions and reduce risk for aspiration pneumonia Follow Energy Conservation Strategies (Sit upright for all PO; take your time; take small, single bites / sips and catch your breath fully between; consider small, high calorie snacks rather than large meals if you begin to fatigue with meals; consider increasing O2 w/ meals if you consistently become short of breath when eating) Pt will benefit from continued RESEARCH STATISTICIAN services while hospitalized Speech Therapy Goals: (To be met by discharge) Pt will tolerate least restrictive diet consistency without evidence of dysphagia / aspiration. NEW Pt / caregiver will be independent with aspiration precautions, diet modifications, and safe swallowing strategies. NEW Pt/caregivers will follow anti-delirium precautions independently with assist from staff as needed NEW Plan: 2-4 times/wk for RESEARCH STATISTICIAN f/u Pt./family are in agreement with treatment plan. 32 min Thank you for this consult with this patient. Please feel free to page me with any questions or concerns. Dione Herrera MA, [facility]-RESEARCH STATISTICIAN Pager: [phone] Speech-Language Pathology Inpatient Rehabilitation Medicine * Alice Stewart MD - 11/11/2023 3:02 PM EDT NEPHROLOGY PROGRESS NOTE Reason for consult: DONAL, volume overload. Interval History: Patient seen and examined in the ICU on CRRT. Clinical and laboratory data reviewed. Stable treatment. No issues with dialysis or access. PE: Awake and alert. NAD. Distant heart sounds. Clear lungs on limited examination. Edema continues to improve. A/R: DONAL - Urine output a bit better yesterday. If/when patient is transitioned to shift therapy, can consider augmenting urine output with diuretic. Metabolic labs - Metabolic labs are adequately controlled. Will continue current prescription. Alice Stewart MD Nephrology Pager: [phone] * Fallon Crowe SLP - 11/11/2023 12:41 PM EDT Speech Language Pathology Contact Note - No Charge Visit Order received, chart reviewed and discussed with RN. Extubated to CPAP yesterday after an 11-day period of intubation; TF currently on hold and being worked up for abd pain. Holding off on clinical swallow evaluation today per guidance from RN/team. RESEARCH STATISTICIAN will re-attempt tomorrow as able/as pts medical status permits. Thank you for this consult. Please page with any questions or concerns. Fallon Quan M.A., [facility]-RESEARCH STATISTICIAN Speech-Language Pathology Inpatient Rehabilitation Department Pager # [phone] Weekend Pager # [phone] * Genaro Aragon PA - 11/11/2023 9:20 AM EDT Cardiac Surgery Progress Note Hayden Russo is a 47 y.o. male with CAD who is 12 Days Post-Op CABGx3. PMH of inferior STEMI s/p PCI, IDDM2, HTN, HLD, CKD, former smoker. 24h Events: Continues cvvh, tolerating goal -2L on the day Extubated yesterday to CPAP. Feels bloated this am. C. Diff neg. Stooling stopped overnight. S: Doing ok, feels better sitting upright off CPAP. Some anxiety laying flat with cpap. Now on NC. Able to speak sentences, albeit slow. Some abd pain with palpation. Doesn't know if he is passing flatus. Denies n/v, fever, chills, SOB, CP. O: Temp: [36.7 ??C (98 ??F)-37.8 ??C (100 ??F)] Heart Rate: [78-139] Resp: [17-40] BP: (116-127)/(53-59) SpO2: [88 %-98 %] Heart Rate from SpO2: -- Tf on hold 11/09 0701 - 11/10 0700 In: 1955.9 [I.V.:1135.9] Out: 4083 [Urine:645] Admit weight: 128.91 kg Current weight: Weight: 125.9 kg (277 lb 9 oz) Physical Exam: General: Lying in bed sitting upright. Appears older than stated age. NAD. Neuro: Moves all extremities weakly. PERRL. Follows commands in all 4 extremities. Lungs: Bilateral clear breath sounds present. Distant. Heart: RRR, S1S2 diminished, no murmurs, sinus 80's Abdomen: Obese, rotund, +bowel sounds nontender. Tympanic Ext: WWP, 1+ edema Incisions: ASPHALT TAMPER CDI Tubes/Lines/Drains: RIJ HD line, [place], TPW, Todd, DHT, PIV Assessment/Plan: 47 y.o. male 12 Days Post-Op CABGx3 MV CAD s/p CABGx3 RV dysfunction ASA / Plavix Statin CPAP when laying flat. Try to maintain upright position. NC as tolerated. Continue cvvh run even today TF on hold Speech consult PT/OT Seroquel nightly for sleep Metoprolol low dose D/C PW today then restart hep gtt Heparin gtt for DVT, low dose Abd film; hold TF's today. LFT's amylase/lipase Post operative acute hypoxemic respiratory failure Will continue tf when able and order speech consult Sputum, BC NGTD Completed 6 days zosyn Scheduled albuterol Post operative atrial fibrillation related to cardiac surgery Amio 200 qd Single episode, will discuss A/C if has further episodes Acute on chronic renal insufficiency Hyperkalemia (resolved) Hyperphosphatemia Hypocalcemia Vit D deficiency continue CVVH even today Daily BMPs Monitor UOP Nephrology following Avoid PICC placement Vitamin D 50k weekly Age indeterminate right peroneal DVT B/l LE duplex 11/02 with age indeterminate right peroneal DVT Heparin gtt bridge low dose Acute hypertriglyceridemia While on propofol Recheck triglycerides if propofol restarted Acute post-op blood loss anemia Anemia of CKD Transfused 1 unit 11/03 and 11/04, 11/06 Continue Epogen 10k 3 times weekly Daily CBC Iron labs c/w chronic anemia HTN Holding home losartan, coreg Metoprolol 12.5 bid T2DM Sick Euthyroid state Recent A1c 11.2, repeat 9.5 Lantus 50U daily DM following, appreciate recs, custom q4h correction scale, TF correction No thyroid replacement necessary, repeat labs in 4-6 weeks Dispo: CVCC, full code Discussed with attending surgeon on rounds this morning. GLENIS CONRAD 11/11/2023 Between the hours of 1800 - 0600 and on the weekends please page [phone]. * Daniel Martin MD - 11/11/2023 8:09 AM EDT Cardiovascular Critical Care Attending Note Hayden Russo 1975 Age: 47 y.o. PCP: Bandar Hahn MD Date of Service: 11/12/2023 Date of Admission: 10/30/2023 Length of Stay Hospital Day 13 days Patient ID: Hayden Russo is a 47 y.o. male with a history of ASCVD presenting with inferior STEMI s/p RCA PCI 2018 with recurrent RCA closures and repeat PCI (most recently July 2023), ischemic cardiomyopathy (LVEF 45%, RV dysfunction), poorly controlled IDDM2, chronic renal insufficiency (baseline creatinine in 2s), BMI 42, HTN, HLD, TUD in remission who is now s/p planned 3vCABG (GREENWOOD-LAD, SVG-OM2, SVG-RPDA) with Dr. Person on 10/30/23 with post-op course complicated by RV failure, cardiogenic shock, severe hypoxic respiratory failure and acute kidney injury on CKD. The patient was seen and examined on critical care rounds. Hayden Russo is a 47 y.o. male with the following active issues: Cardiogenic shock Right ventricular failure, acute on chronic Acute hypoxic respiratory failure ASCVD s/p 3vCABG (GREENWOOD-LAD, SVG-OM2, SVG-RPDA; Dr. Person on 10/30/23) Acute on chronic HFpEF Ischemic Cardiomyopathy Acute renal failure, non-oliguric on CKD4 (baseline creatinine in the 2s) IDDM2, poorly controlled Obesity, Class 3 BMI 42 Distal RLE DVT (peroneal) INTERVAL HISTORY: Tolerating extubation RO for c diff NSR up to 100s ASSESSMENT, MANAGEMENT, and DECISION MAKING: Hayden Russo is a 47 y.o. male with a history of ASCVD presenting with inferior STEMI s/p RCA PCI 2018 with recurrent RCA closures and repeat PCI (most recently July 2023), ischemic cardiomyopathy (LVEF 45%, RV dysfunction), poorly controlled IDDM2, chronic renal insufficiency (baseline creatinine in 2s), BMI 42, HTN, HLD, TUD in remission who is now s/p planned 3vCABG (GREENWOOD-LAD, SVG-OM2, SVG-RPDA) with Dr. Person on 10/30/23 with post-op course complicated by RV failure, cardiogenic shock, severe hypoxic respiratory failure and acute kidney injury on CKD. Tolerating a trial of extubation. ABG with metabolic acidosis and respiratory alkalosis. heparin drip DAPT Diffuse abd pain this am WBC up; temp 37.8 twice on CVVH CVVH to even for now Amio 200 bid Pacing wires out today Check KUB. reviewed Lactic Acidosis stable Check LFTs and amylase - reviewed Restart tube feeds Avoid BiPAP MEDICATIONS: Scheduled Meds: metoprolol tartrate 37.5 mg Oral Q8H ISAMAR AMIOdarone 200 mg Oral BID ipratropium-albuteroL 3 mL Nebulization Q4H atorvastatin 40 mg Oral QPM QUEtiapine 50 mg Oral Nightly insulin lispro 6-10 Units Subcutaneous Q4H ISAMAR protein powder 2 Scoop Per NG tube TID insulin lispro 1-11 Units Subcutaneous Q4H ISAMAR acetaminophen 1,000 mg Oral Q6H ISAMAR aspirin 81 mg Per NG tube Daily Or aspirin 300 mg Rectal Daily epoetin sha-epbx 10,000 Units Subcutaneous Once per day on Monday ferrous sulfate 300 mg Oral Daily vitamin B Complex-vitamin C-folic Acid 1 tablet Oral Daily ergocalciferoL (vitamin D2) 50,000 Units Per NG tube Weekly insulin glargine (Lantus;Semglee) (100 unit/mL) subcutaneous injection 50 Units Subcutaneous Q24H clopidogreL 75 mg Oral Daily chlorhexidine 15 mL Oral BID pantoprazole EC 40 mg Oral Daily Or pantoprazole 40 mg Intravenous Daily senna-docusate 2 tablet Oral Daily lidocaine 1 patch Transdermal Q24H Continuous Infusions: heparin (porcine) infusion 750 Units/hr (11/12/23 0800) bicarbonate CRRT with 4 mEq/L K+, 3 mEq/L Ca++ 5 each (11/12/23 0500) dexmedeTOMIDine 0.4 mcg/kg/hr (11/12/23 0800) tube feeding diet Stopped (11/10/23 0026) potassium phosphate 25 mL/hr (11/12/23 0111) calcium gluconate Stopped (11/05/23 1318) NORepinephrine Stopped (11/09/23 0049) EXAM: Last value Range last 24 hrs Temperature Temp: 36.8 ??C (98.3 ??F) Temp: [36.4 ??C (97.6 ??F)-37.5 ??C (99.5 ??F)] Heart Rate Heart Rate: 68 Heart Rate: [66-108] Blood Pressure BP: 134/55 BP: (134-151)/(55-62) Respiratory Rate Resp: 16 Resp: [16-27] SpO2 SpO2: 97 % SpO2: [93 %-97 %] Art BP BP (Arterial Line): 119/51 BP (Arterial Line): (111-172)/(49-68) Weights: Patient Vitals for the past 168 hrs: Weight 11/12/23 0615 124.1 kg (273 lb 9.5 oz) 11/11/23 0600 125.9 kg (277 lb 9 oz) 11/10/23 0427 127.9 kg (281 lb 15.5 oz) 11/09/23 0310 130.5 kg (287 lb 12.6 oz) 11/08/23 0554 133.7 kg (294 lb 12.1 oz) 11/07/23 0500 135.2 kg (298 lb 1 oz) 11/06/23 0449 134.1 kg (295 lb 10.2 oz) Tolerating extubation this am Chest coarse Cor rrr Abd slightly tender Ext warm IS THE PATIENT CRITICALLY ILL? Is there a high potential of sudden, clinically significant, or life threatening deterioration? Yes Is there a need for direct personal assessment and management to treat/prevent multiple vital organfailure/deterioration? Yes If this patient is not critically ill, the reason for continued hospitalization is NA. PATIENT IS CRITICALLY ILL WITH THESE DIAGNOSES BEING MANAGED BY Cardiology team providing critical care services ARDS PA Catheter Hyponatremia X Hypoxemic Resp Failure Cardiogenic Shock Hypernatremia Pneumonia req Ventilator Acute Myocardial Infarction Hyperkalemia Hypercarbic Resp Failure Subarachnoid Hemorrhage Acute Drug Ingestion / OD Respiratory Acidosis Traumatic Brain Injury X Acute Renal Failure Acute Resp Failure Coma Acute Liver Failure Metabolic Acidosis Stupor Thrombocytopenia Hypotension, Fluids Delirium Neutropenia Hypotension, Pressors Acute Encephalopathy Hypertensive Emergency Sepsis Ascites Req Treatment Malnutrition Septic Shock with SIRS Coagulopathy Req Treatment Anaphylaxis Active Hemorrhage I personally performed 35 minutes of aggregate critical care time exclusive of procedures and teaching. This includes time spent during direct patient evaluation and reassessment, interpreting diagnostic tests, directing life and/or organ supporting interventions and documentation on the unit. The time documented is independent of the care provided by the Cardiology/Cardiac Surgery attending of record. DANIEL MARTIN MD 11/12/2023 * Venus Lopes RCP - 11/11/2023 6:08 AM EDT Respiratory Therapy NIV Note NIV Settings: NIV Mode: CPAP EPAP (cmH20): 8 FiO2:50% NIV Measurements: Resp: 28 Mve: 17.6 Leak (L/min): 8 L/min Vte: 608 SpO2: 95 % Current Medications: MDI Inhaled Medications: Albuterol, Nebulized Medications: Albuterol & Ipratroprium Skin Assessment: WDL Breath Sounds: Diminished Assessment: Received pt on 5L NC. Placed on overnight NIV of CPAP of 8 and 50% Weaned FiO2 to 40% due to SPO2 in high 90s. Pt compliant with nocturnal NIV. Venus J Lopes, COMPONENT PREP OPERATOR * Alice Stewart MD - 11/10/2023 6:41 PM EDT NEPHROLOGY PROGRESS NOTE Reason for consult: DONAL, volume overload. Interval History: Patient seen and examined in the ICU on CRRT. Clinical and laboratory data reviewed. Stable treatment. No issues with dialysis or access. PE: Extubated. Awake and alert. Speaking, but with some difficulty due to hoarseness. Distant heart sounds. Clear lungs on limited examination. Edema continues to improve. I/O last 3 completed shifts: In: 5838 [I.V.:2331.7; NG/GT:3075; IV Piggyback:431.3] Out: 8606 [Urine:545; Other:7161; Stool:900] I/O this shift: In: 656.8 [I.V.:531.8; IV Piggyback:125] Out: 1431 [Urine:360; Other:971; Stool:100] A/R: DONAL - Tolerating CRRT. Still getting fairly high-volume UF, so would continue 24-hour CRUISE CONSULTANT for now. Urine output has decreased significantly. Could consider transition to shift CRRT if primary team feels he will still achieve adequate volume removal. Urine output my increase during periods of CRRT, and output could perhaps be augmented with diuresis. Metabolic labs - Metabolic labs are adequately controlled. Will continue current prescription. Alice Stewart MD Nephrology Pager: [phone] * Natalie Martin, PT - 11/10/2023 4:58 PM EDT Physical Therapy Evaluation Patient profile: Hayden Russo is a 47 y.o. male with CAD who is 11 Days Post-Op CABGx3. PMH of inferior STEMI s/p PCI, IDDM2, HTN, HLD, CKD, former smoker. 24h Events: Continues cvvh, tolerating goal -2L on the day Vent wean passed sbt this am Patient with the following active problems: Past Medical History: Diagnosis Date Coronary artery disease Diabetes Hypertension Past Surgical History: Procedure Laterality Date CORONARY ANGIOPLASTY WITH STENT PLACEMENT HERNIA REPAIR PRG CATH PLMO LEFT HEART CATH & ARTS W/INJ & ANGIO IMG S&I N/A 08/04/2023 CORONARY ANGIOGRAPHY; W LHC,POSSIBLE PCI (WRVU 5.6) performed by Azul Rowley MD at [facility] CATHLABS PRO CABG, ARTERIAL, SINGLE N/A 10/30/2023 @CABG, USING ARTERIAL GRAFT;SINGLE ARTERIAL GRAFT (WRVU 33.75) performed by Timi Person MD at [facility] MAIN OR PRO CABG, ARTERY-VEIN, TWO N/A 10/30/2023 @CABG, TWO VENOUS GRAFTS & ARTERIAL GRAFT (WRVU 7.93) performed by Timi Person MD at [facility] MAIN OR PRO ENDOSCOPY W/VIDEO-ASST VEIN HARVEST, CABG N/A 10/30/2023 ENDOSCOPIC HARVEST VEIN(S) FOR CABG (WRVU 0.31) performed by iTmi Person MD at [facility] MAIN OR Social History: Pt live with in an apt with FOS to enter, they have a walker and a cane if needed. Precautions/Special Considerations: sternal precautions, CVVHD, a-line, todd, PIV Mobility and Positioning Recommendations: Mechanical lift to chair at this time Bed/chair position. Subjective: Pt tearful at times, realizing he has been in hospital over a week Objective: Pt seen for evaluation today. Pain: generalized pain in joints and limbs due to stiffness Vital Signs: SpO2: on 6L mid 90's; good use of wall suction for oral secretions HR: 130-149 BP: 140-60's/70's Mental Status: alert, following all commands, teary at times (realizing he has been here a week), appropriate, weak voice Vision: makes good eye contact, no complaints of changes; not formally evaluated Skin: chest and leg incision clean and dry Musculoskeletal: ROM: generalized stiffness throughout Strength: LUE weaker than R (grossly 3 to 3+/5) Sensation: intact to LT Bed Mobility: Supine to Sit: mod A x2 Sit to Supine: max A x2 Transfers: Sit to Stand: unable Stand to Sit: unable Bed to Chair: unable Gait:unable at this time Stairs: N/A Balance: Sitting Static: good Sitting Dynamic: not assessed; tachycardic and hypertensive, so had to return to supine after briefsit EOB Standing Static: unable Standing Dynamic / Gait: unable Therex: Completed AA exs prior to mobilizing to EOB Education: Patient has been educated on Exercise, Precautions/protocol, and Role of therapy and needs reinforcement. for understanding. Patient status, treatment, and mobility recommendations discussed with nursing. Assessment: Hayden Russo was seen today for physical therapy evaluation. Pt presents Pod #[id number] x3 with pain, fear, hemodynamic instability (tachycardic, hypertensive),impaired knowledge of precautions, impaired mobility, impaired respiratory mechanics, impaired gas exchange and will benefit from PT to address these issues. Mobility limited by BP/HR today but overall he physically tolerated sitting EOB and was able to maintain sit for several minutes (but then placed back in supine as HR/BP remained high). Will continue to progress mobility as tolerated. Plan: Therapy Frequency (PT): 2-4 times/wk for therapy including balance training, bed mobility training, gait training, neuromuscular re-education, patient/family education, postural re-education, range of motion, strengthening, stretching, and transfer training. Patient/family understand and agree with plan as stated above. Discharge Recommendations: Based on current findings- to be determined pending medical status &functional progression Consult Recommendations: No other consults recommended at this time. Equipment needs: to be determined Goals: To be achieved by 11/24/23: Pt. to demonstrate knowledge of safety limitations and precautions and will appropriately request assistance for functional activities as appropriate. Pt able to complete functional activities with tolerable level of pain and stable vital signs. Pt. to demonstrate understanding of appropriate stretching and strengthening exercises. Pt. to perform bed mobility with min A. Pt. to perform sit to stand transfers with supervision using a front wheeled walker. Pt. to ambulate 100ft with CGA using a a front wheeled walker. 2017 PT Evaluation Code Rationale: Diagnosis & Pertinent Co-Morbidities, personal factors, and present illness affecting Plan of Care: (see above); Additional personal factors or co- morbidities that impact plan: Total # of Factors: 0 1-2 3+ x Examination of body system impairments, functional limitations and behaviors, and/or participation restrictions. Addressing 1-2 elements Addressing 3 + elements x Addressing 4 + elements Clinical presentation: See assessment above. Stable/Uncomplicated Evolving/Fluctuating Symptoms Unstable/Unpredictable x Clinical decision making of high complexity based on pt's functional performance as outlined in this evaluation. Time IN / OUT: 8461-5892 Total Minutes, Physical Therapy: 45 Billing Code: evaluation (high complex) NATALIE MARTIN PT Pager: [phone] Physical Therapy Inpatient Rehabilitation Department * Ariel Montez RCP - 11/10/2023 4:39 PM EDT Illness Severity Stable Respiratory Modalities: NIV Patient Summary Admitted: 10/30/2023 Age: 47 y.o. Code Status: FULL. HPI: CABG x3, EF about 45% & moderate RV dysfunction PMHx: severe atherosclerotic coronary disease, DM, R Coronary STEMI s/p PCI + stent (found to be occluded and reopened with more stents), HTN, former smoke (quit 2020) Events w/ date: 11/01- Sofía initiated, Bronchoscopy & BAL performed 11/02- Sofía 5ppm- weaned FiO2 to 40% 11/03- Weaned SOFÍA off, got hypotensive & SpO2 droped to 83%, back to 1ppm. 11/04- Increased SOFÍA to 10ppm for Sat 91% on 100 Fio2. 11/07- FiO2 weaned 50%. Sofía weaned to 2ppm @ 1735; Leave on 1PPM overnight 11/08 Day: Received patient in VCV 590/x15/+10/50%. Nitric @ 1PPM; 0810: Nitric D/Cd per improved PO2. Weaned to PSV 6/10 40%. 11/09 - Pt extubated to NIV. He wore intermittently during shift. ABG revealed a metabolic and respiratory alkalosis. Action List Medications/ACT: Alb. MIGULE Q4 Situational Awareness & Contingency Planning Pt not a Difficult Aw, but a grade 2 view. MD Smith wants pt to be extubated on Day shift when more people available if needs to be re-intubated. Extubate to Bipap. * Michelle Pretty APRN - 11/10/2023 3:30 PM EDT Glucose Management Team Inpatient Progress Note HPI Hayden Russo is a 47 y.o. male from [place], [place], with PMH significant for ASCVD-CAD (2019 STEMI w/PCI - RCA stent, then occluded and re-stented 05/2023), CKD (eGFR 33), IDDM2 poorly controlled (A1c 11.2% 05/2023), who was admitted on 10/30/2023 currently being treated for re-occlusion of stents, now s/p 10/29 CABG X3. Original consult completed: 10/31/2023 Patient Interview & Updates Ambrocio was extubated this AM, however continues to need BiPap/Cpap support and sedation for tachycardia. Tube feeds have been on hold all day, and will continue on hold until the risk of re-intubation is lower. Objective Temp: [36.4 ??C (97.5 ??F)-37.8 ??C (100 ??F)] Heart Rate: [56-139] Resp: [14-40] BP: -- SpO2: [88 %-100 %] Heart Rate from SpO2: -- Wt Readings from Last 3 Encounters: 11/10/23 127.9 kg (281 lb 15.5 oz) 09/22/23 123.3 kg (271 lb 14.4 oz) 09/12/23 122.1 kg (269 lb 3.2 oz) Current Regimen from Yesterday Insulin glargine 50u QD at 1800 Lispro for Correction: Custom 1:15 >140 Q4hrs Lispro for TF: TUBE FEED ASSOCIATED For Peptamen AF tube feed - 112 grams of carbohydrate per 1000 cc - Starting 25mL/hr, and titratingup Q6hrs by 10mL, with Goal rate 75mL/hr HOLD if tube feed not running HOLD if BG less than 80 Based on 1:3.5 I:C ratio TO COVER THE NEXT 4 HOURS OF TUBE FEEDS 25-34 mL/hr give 6 units every 4 hours 35-44 mL/hr give 7 units every 4 hours 45-54 mL/hr give 8 units every 4 hours 55-64 mL/hr give 9 units every 4 hours 65-75 mL/hr give 10 units every 4 hours If greater than 75 or change in tube feed call for new orders. When able to take PO, recommend adding Carb Controlled 60/60/75g diet and Lispro Monitoring: BG Q4hrs Diet: NPO Relevant Meds: TF (Peptamen AF 112g/1000mL, goal rate 75ml/hr); Prior: 10/29 1811 - D10 w/10u Regular insulin for hyperkalemia; Norepinephrine in D5% 10/29-0003 10/30);Epinephrine in D5%; Milrinone in D5%; chlorothiazide in D5; Dopamine in D5% (11/05-11/08); Chlorothiazide in D5%(intermittent doses) TDD: 11/08: 132u (50u basal, 60u TF, 22u correction) 11/07: 130u 11/06: 89u Recent Glucose Levels Recent Labs 11/10/23 0411 11/09/23 2030 11/09/23 0414 11/08/23 1554 11/08/23 1107 11/08/23 0740 11/08/23 0412 11/08/23 0013 11/07/23 1713 11/07/23 1524 11/07/23 0849 11/06/23 1918 POCGLU 176 170 152 228* 211* 165 158 191 153 158 158 234* ASSESSMENT Hayden Russo is a 47 y.o. years old male with PMH significant for IDDM2 (Last A1C of 11.2% 05/2023) who was admitted on 10/30/2023 for re-occlusion of stents, now s/p 10/29 CABG X3. Diabetes poorlycontrolled and complicated by acute illness. Currently variable blood glucose levels while hospitalized requiring adjustment of insulin regimen and DM medications. BG have been more stable <180 with tube feeds pauses for extubation. TF held for now while the team determines if he will need to be re-intubated. I suspect he will need TF insulin increased basedon higher BG last 2 days without insulin changes, but ok to continue with same plan today. Recommendations given to team and orders pended. RECOMMENDATIONS: Insulin glargine 50u QD at 1800 Lispro for Correction: Custom 1:15 >140 Q4hrs Lispro for TF: TUBE FEED ASSOCIATED For Peptamen AF tube feed - 112 grams of carbohydrate per 1000 cc - Goal rate 75mL/hr HOLD if tube feed not running HOLD if BG less than 80 Based on 1:3.5 I:C ratio TO COVER THE NEXT 4 HOURS OF TUBE FEEDS 25-34 mL/hr give 6 units every 4 hours 35-44 mL/hr give 7 units every 4 hours 45-54 mL/hr give 8 units every 4 hours 55-64 mL/hr give 9 units every 4 hours 65-75 mL/hr give 10 units every 4 hours If greater than 75 or change in tube feed call for new orders. When able to take PO, recommend adding Carb Controlled 60/60/75g diet and Lispro Monitoring: BG Q4hrs Diet: NPO Discharge Planning/salvage determiner diabetes care: Medications - Outpatient treatment regimen recommendations pending based on the hospital course. Home: These doses need clarification when patient able to communicate. Farxiga 10mg QD - likely restart at discharge. Insulin glargine (Basaglar) pen Humalog 20u TID w/meals No Ozempic since May - unknown reason. Monitoring BG tid ac & hs Follow-up: PCP 35 minutes were spent over the course of the day with this patient encounter including time spent in chart review and relevant lab result review, assessment of and counseling with the patient on diabetes and treatment plan, reviewing all glucose and insulin data, and coordination with the consulting service. Michelle Pretty APRN, DNP, -[facility] Inpatient Diabetes Management Team Team pager #[phone] * Heath Ross - 11/10/2023 2:59 PM EDT Hvac/R Instructor Encounter Note Patient Name: Hayden Russo : [id number] MR#: [id number] Admit Date: 10/30/2023 6:13 AM Hospital Day 11 days Narrative: Self initiated visit to patient for Spiritual support in a regular unit round. Assessment: Patient is very busy with with other Care Providers. Not a good time to visit. Intervention and Outcome: An attempted visit for Spiritual support to patient. Patient is being assisted by other Caregivers.Not a good time for Spiritual support. Follow-up: Another time. Time in Direct Care: Heath Ross 11/10/2023 * Daniel Martin MD - 11/10/2023 1:46 PM EDT Cardiovascular Critical Care Attending Note Hayden Russo 1975 Age: 47 y.o. PCP: Bandar Hahn MD Date of Service: 11/10/2023 Date of Admission: 10/30/2023 Length of Stay Hospital Day 11 days Patient ID: Hayden Russo is a 47 y.o. male with a history of ASCVD presenting with inferior STEMI s/p RCA PCI 2019 with recurrent RCA closures and repeat PCI (most recently July 2023), ischemic cardiomyopathy (LVEF 45%, RV dysfunction), poorly controlled IDDM2, chronic renal insufficiency (baseline creatinine in 2s), BMI 42, HTN, HLD, TUD in remission who is now s/p planned 3vCABG (GREENWOOD-LAD, SVG-OM2, SVG-RPDA) with Dr. Person on 10/30/23 with post-op course complicated by RV failure, cardiogenic shock, severe hypoxic respiratory failure and acute kidney injury on CKD. The patient was seen and examined on critical care rounds. Hayden Russo is a 47 y.o. male with the following active issues: Cardiogenic shock Right ventricular failure, acute on chronic Acute hypoxic respiratory failure ASCVD s/p 3vCABG (GREENWOOD-LAD, SVG-OM2, SVG-RPDA; Dr. Person on 10/30/23) Acute on chronic HFpEF Ischemic Cardiomyopathy Acute renal failure, non-oliguric on CKD4 (baseline creatinine in the 2s) IDDM2, poorly controlled Obesity, Class 3 BMI 42 Distal RLE DVT (peroneal) INTERVAL HISTORY: Tolerating enteral feeds Negative fluid balance on CVVH Passed SBT this AM. ASSESSMENT, MANAGEMENT, and DECISION MAKING: Hayden Russo is a 47 y.o. male with a history of ASCVD presenting with inferior STEMI s/p RCA PCI 2019 with recurrent RCA closures and repeat PCI (most recently July 2023), ischemic cardiomyopathy (LVEF 45%, RV dysfunction), poorly controlled IDDM2, chronic renal insufficiency (baseline creatinine in 2s), BMI 42, HTN, HLD, TUD in remission who is now s/p planned 3vCABG (GREENWOOD-LAD, SVG-OM2, SVG-RPDA) with Dr. Person on 10/30/23 with post-op course complicated by RV failure, cardiogenic shock, severe hypoxic respiratory failure and acute kidney injury on CKD. Tolerating a trial of extubation. ABG with metabolic acidosis and respiratory alkalosis. BiPAP added as needed. Complete antibiotics CVVH to continue. DAPT Adding heparin drip for peroneal DVT and for postoperative Afib MEDICATIONS: Scheduled Meds: LORazepam 0.5 mg Intravenous Once AMIOdarone 200 mg Oral BID metoprolol tartrate 12.5 mg Oral Q8H ISAMAR atorvastatin 40 mg Oral QPM QUEtiapine 50 mg Oral Nightly insulin lispro 6-10 Units Subcutaneous Q4H ISAMAR protein powder 2 Scoop Per NG tube TID insulin lispro 1-11 Units Subcutaneous Q4H ISAMAR acetaminophen 1,000 mg Oral Q6H ISAMAR aspirin 81 mg Per NG tube Daily Or aspirin 300 mg Rectal Daily epoetin sha-epbx 10,000 Units Subcutaneous Once per day on Monday ferrous sulfate 300 mg Oral Daily vitamin B Complex-vitamin C-folic Acid 1 tablet Oral Daily ergocalciferoL (vitamin D2) 50,000 Units Per NG tube Weekly insulin glargine (Lantus;Semglee) (100 unit/mL) subcutaneous injection 50 Units Subcutaneous Q24H clopidogreL 75 mg Oral Daily chlorhexidine 15 mL Oral BID pantoprazole EC 40 mg Oral Daily Or pantoprazole 40 mg Intravenous Daily senna-docusate 2 tablet Oral Daily shift total and Settings verification Intravenous 2 Times Daily - Shift Total albuteroL 6 puff Inhalation Q4H ISAMAR lidocaine 1 patch Transdermal Q24H Continuous Infusions: heparin (porcine) infusion 1,300 Units/hr (11/10/23 1300) bicarbonate CRRT with 4 mEq/L K+, 3 mEq/L Ca++ 5 each (11/10/23 0600) dexmedeTOMIDine 0.8 mcg/kg/hr (11/10/23 1318) tube feeding diet Stopped (11/10/23 0026) potassium phosphate Stopped (11/10/23 1036) calcium gluconate Stopped (11/05/23 1318) NORepinephrine Stopped (11/09/23 0049) furosemide Stopped (11/07/23 0937) fentaNYL Stopped (11/10/23 0850) EXAM: Last value Range last 24 hrs Temperature Temp: 36.8 ??C (98.3 ??F) Temp: [36.4 ??C (97.5 ??F)-37.8 ??C (100 ??F)] Heart Rate Heart Rate: (!) 128 Heart Rate: [56-139] Blood Pressure BP: 154/59 BP: -- Respiratory Rate Resp: 29 Resp: [14-40] SpO2 SpO2: (!) 89 % SpO2: [88 %-100 %] Art BP BP (Arterial Line): 111/51 BP (Arterial Line): (91-164)/(51-79) Weights: Patient Vitals for the past 168 hrs: Weight 11/10/23 0427 127.9 kg (281 lb 15.5 oz) 11/09/23 0310 130.5 kg (287 lb 12.6 oz) 11/08/23 0554 133.7 kg (294 lb 12.1 oz) 11/07/23 0500 135.2 kg (298 lb 1 oz) 11/06/23 0449 134.1 kg (295 lb 10.2 oz) 11/05/23 0400 122.1 kg (269 lb 2.9 oz) 11/04/23 0400 134.6 kg (296 lb 11.8 oz) Tolerating extubation this am Chest coarse Cor rrr Abd slightly tender Ext warm IS THE PATIENT CRITICALLY ILL? Is there a high potential of sudden, clinically significant, or life threatening deterioration? Yes Is there a need for direct personal assessment and management to treat/prevent multiple vital organfailure/deterioration? Yes If this patient is not critically ill, the reason for continued hospitalization is NA. PATIENT IS CRITICALLY ILL WITH THESE DIAGNOSES BEING MANAGED BY Cardiology team providing critical care services ARDS PA Catheter Hyponatremia X Hypoxemic Resp Failure Cardiogenic Shock Hypernatremia Pneumonia req Ventilator Acute Myocardial Infarction Hyperkalemia Hypercarbic Resp Failure Subarachnoid Hemorrhage Acute Drug Ingestion / OD Respiratory Acidosis Traumatic Brain Injury X Acute Renal Failure Acute Resp Failure Coma Acute Liver Failure Metabolic Acidosis Stupor Thrombocytopenia Hypotension, Fluids Delirium Neutropenia Hypotension, Pressors Acute Encephalopathy Hypertensive Emergency Sepsis Ascites Req Treatment Malnutrition Septic Shock with SIRS Coagulopathy Req Treatment Anaphylaxis Active Hemorrhage I personally performed 35 minutes of aggregate critical care time exclusive of procedures and teaching. This includes time spent during direct patient evaluation and reassessment, interpreting diagnostic tests, directing life and/or organ supporting interventions and documentation on the unit. The time documented is independent of the care provided by the Cardiology/Cardiac Surgery attending of record. DANIEL MARTIN MD 11/10/2023 * Clay Aby, FARM EQUIPMENT OPERATOR - 11/10/2023 10:36 AM EDT Cardiac Surgery Progress Note Hayden Russo is a 47 y.o. male with CAD who is 11 Days Post-Op CABGx3. PMH of inferior STEMI s/p PCI, IDDM2, HTN, HLD, CKD, former smoker. 24h Events: Continues cvvh, tolerating goal -2L on the day Vent wean passed sbt this am S: Intubated, awake following commands on SBT O: Temp: [36.4 ??C (97.5 ??F)-37.4 ??C (99.3 ??F)] Heart Rate: [56-122] Resp: [14-28] BP: -- SpO2: [94 %-100 %] Heart Rate from SpO2: -- Tf at goal 11/08 0701 - 11/09 0700 In: 3772.8 [I.V.:1441.5] Out: 5806 [Urine:360] Admit weight: 128.91 kg Current weight: Weight: 127.9 kg (281 lb 15.5 oz) Physical Exam: General: Lying in bed on ventilator. Appears older than stated age. NAD. Neuro: Intubated. PERRL. Opens eyes to voice. Follows commands in all 4 extremities. Lungs: Bilateral clear breath sounds present. Heart: RRR, S1S2 diminished, no murmurs, sinus 80's Abdomen: Obese, rotund, +bowel sounds nontender Ext: WWP, 1+ edema Incisions: SAMUEL CDI Tubes/Lines/Drains: RIJ HD line, [place], TPW, Todd, DHT, PIV Assessment/Plan: 47 y.o. male 11 Days Post-Op CABGx3 MV CAD s/p CABGx3 RV dysfunction ASA / Plavix Statin Extubate to bipap Continue cvvh run for goal -2L/24 hrs TF continue later if remains extubated Speech consult PT/OT Seroquel nightly for sleep Metoprolol will start low dose If tolerates dosing will dc PW later today Heparin gtt for DVT, low dose Post operative acute hypoxemic respiratory failure Extubate now Will continue tf post and order speech consult Sputum, BC NGTD Completed 6 days zosyn Scheduled albuterol Post operative atrial fibrillation related to cardiac surgery Amio 200 qd Single episode, will discuss A/C if has further episodes Acute on chronic renal insufficiency Hyperkalemia (resolved) Hyperphosphatemia Hypocalcemia Vit D deficiency continue CVVH Daily BMPs Monitor UOP Nephrology following Avoid PICC placement Vitamin D 50k weekly Age indeterminate right peroneal DVT B/l LE duplex 11/02 with age indeterminate right peroneal DVT Start heparin gtt bridge now low dose Acute hypertriglyceridemia While on propofol Recheck triglycerides if propofol restarted Acute post-op blood loss anemia Anemia of CKD Transfused 1 unit 11/03 and 11/04, 11/06 Continue Epogen 10k 3 times weekly Daily CBC Iron labs c/w chronic anemia HTN Holding home losartan, coreg Start metoprolol 12.5 bid T2DM Sick Euthyroid state Recent A1c 11.2, repeat 9.5 Lantus 50U daily DM following, appreciate recs, custom q4h correction scale, TF correction No thyroid replacement necessary, repeat labs in 4-6 weeks Dispo: CVCC, full code Discussed with attending surgeon on rounds this morning. ABY WILLIAMSON APRN 11/10/2023 Between the hours of 1800 - 0600 and on the weekends please page [phone]. * Alicia Clayton RCP - 11/10/2023 6:15 AM EDT AMV Protocol: Yes SBT Protocol: Yes SBT: Not performed/Excluded: PEEP greater than 10 cmH2O Vent Settings: Ventilator Mode: PS/CPAP PEEP Set: 10 FiO2: 40 % PSV: 6 Ventilator Measurements: Resp: 15 Vt Spontaneous: 659 Ve: 10 SpO2: 100 % EtCO2: 34 mmHg Airway: 8.0 @ 25 cm at the Teeth. Skin Integrity: WDL MDI Inhaled Medications: Albuterol Q4 Breath Sounds: coarse Secretions: small, creamy, thin Assessment / Events / Plan of the Day: Received pt on above settings. Events: 0045 AB.46, 37, 70, 25.6/1.8 0553 AB.40, 41, 91, 24.4/-0.5 no acute respiratory or vent changes made overnight. Plan: Continue to wean vent settings as tolerated. Extubate to BiPAP when appropriate Alicia Clayton RCP * Devin Sales, RT - 11/09/2023 5:38 PM EDT Illness Severity Stable Respiratory Modalities: PS/CPAP 6/+10, 40 % Airway: 8.0 @ 25 Teeth Patient Summary Admitted: 10/30/2023 Age: 47 y.o. Code Status: FULL. HPI: CABG x3, EF about 45% & moderate RV dysfunction PMHx: severe atherosclerotic coronary disease, DM, R Coronary STEMI s/p PCI + stent (found to be occluded and reopened with more stents), HTN, former smoke (quit 2020) Events w/ date: 11/01- Sofía initiated, Bronchoscopy & BAL performed 11/02- Sofía 5ppm- weaned FiO2 to 40% 11/03- Weaned SOFÍA off, got hypotensive & SpO2 droped to 83%, back to 1ppm. 11/04- Increased SOFÍA to 10ppm for Sat 91% on 100 Fio2. 11/07- FiO2 weaned 50%. Sofía weaned to 2ppm @ 1735; Leave on 1PPM overnight 11/08 Day: Received patient in VCV 590/x15/+10/50%. Nitric @ 1PPM 0810: Nitric D/Cd per improved PO2. Weaned to PSV 6/10 40%. Action List Medications/ACT: Alb. MDI Q4 Situational Awareness & Contingency Planning Pt not a Difficult Aw, but a grade 2 view. MD Smith wants pt to be extubated on Day shift when more people available if needs to be re-intubated. Extubate to Bipap. RT Kwasi * Alice Stewart MD - 11/09/2023 4:54 PM EDT NEPHROLOGY PROGRESS NOTE Reason for consult: DONAL, volume overload. Interval History: Patient seen and examined in the ICU on CRRT. Clinical and laboratory data reviewed. Stable treatment. No issues with dialysis or access. PE: Intubated, but sedation weaned. Now opens eyes to voice and nods in response to question. Distant heart sounds. Clear lungs on limited examination. Edema/anasarca is present. But improved Abdomen is firm. I/O last 3 completed shifts: In: 5977.7 [I.V.:2643.2; NG/GT:3104.5; IV Piggyback:100] Out: 9667 [Urine:1090; Other:6892; Stool:1685] I/O this shift: In: 1673.8 [I.V.:554.9; NG/GT:1032.5; IV Piggyback:86.4] Out: 2314 [Urine:120; Other:1819; Stool:375] A/R: DONAL - Tolerating CRRT. Still getting high-volume UF, so would continue 24-hour CRUISE CONSULTANT for now. Urine output has decreased with aggressive UF, so may want to consider slight reduction in UF to avoid persistent kidney injury. Metabolic labs - Metabolic labs are adequately controlled. Will continue current prescription. Alice Stewart MD Nephrology Pager: [phone] * Vita, RAMONA East - 11/09/2023 1:07 PM EDT Patient Interview & Update Ambrocio is currently sedated and on CRRT with potential plan to change him over today to PEEP. FROM RD note today Peptamen AF with a goal rate of 75 mL per hour Needs daily vitamin when on CRRT This rate is calculated to compensate for unplanned time off feedings due to potential procedures, etc. At goal, this will provide 1100 mL formula, 1100 calories, 101 grams protein, 924 mL water from formula, and 73% of the RDI's for vitamin and minerals. Daily multivitamin on above TF Objective Temp: [36.6 ??C (97.9 ??F)-37.9 ??C (100.2 ??F)] Heart Rate: [57-78] Resp: [15-32] BP: -- SpO2: [95 %-100 %] Heart Rate from SpO2: -- Current Regimen Insulin glargine 50u QD at 1800 Lispro for Correction: Custom 1:15 >140 Q4hrs Lispro for TF: TUBE FEED ASSOCIATED For Peptamen AF tube feed - 112 grams of carbohydrate per 1000 cc - Starting 25mL/hr, and titratingup Q6hrs by 10mL, with Goal rate 75mL/hr HOLD if tube feed not running HOLD if BG less than 80 Based on 1:4.25 I:C ratio TO COVER THE NEXT 4 HOURS OF TUBE FEEDS 25-34 mL/hr give 4 units every 4 hours 35-44 mL/hr give 5 units every 4 hours 45-54 mL/hr give 6 units every 4 hours 55-64 mL/hr give 7 units every 4 hours 65-75 mL/hr give 8 units every 4 hours If greater than 75 or change in tube feed call for new orders. When able to take PO, recommend adding Carb Controlled 60/60/75g diet and Lispro Monitoring: BG Q4hrs Diet: NPO Recent Glucose Levels Recent Labs 11/09/23 0414 11/08/23 1554 11/08/23 1107 11/08/23 0740 11/08/23 0412 11/08/23 0013 11/07/23 1713 11/07/23 1524 11/07/23 0849 11/06/23 1918 11/05/23 0926 11/05/23 0550 POCGLU 152 228* 211* 165 158 191 153 158 158 234* 198 162 ASSESSMENT Hayden Russo is a 47 y.o. male from [place], [place], with PMH significant for ASCVD-CAD (2019 STEMI w/PCI - RCA stent, then occluded and re-stented 05/2023), CKD (eGFR 33), NIDDM2 poorly controlled (A1c 11.2% 05/2023), who was admitted on 10/30/2023 currently being treated for re-occlusion of stents, now s/p 10/29 CABG X3. Ambrocio has chronically poor DM control and insulin requiring not dependant prior to surgery. He was using basal/bolus insulin, and based on SureScripts, likely taking ~100u/day total, which is consistent with weight-based estimates. PLAN we will suggest no changes at this time. We will continue to follow with you. His extubation/transition to PEEP we doubt will change his insulin requirements. Insulin glargine 50u QD at 1800 Lispro for Correction: Custom 1:15 >140 Q4hrs INCREASE Lispro for TF: TUBE FEED ASSOCIATED For Peptamen AF tube feed - 112 grams of carbohydrate per 1000 cc - Starting 25mL/hr, and titratingup Q6hrs by 10mL, with Goal rate 75mL/hr HOLD if tube feed not running HOLD if BG less than 80 Based on 1:4.25 I:C ratio TO COVER THE NEXT 4 HOURS OF TUBE FEEDS 25-34 mL/hr give 4 units every 4 hours 35-44 mL/hr give 5 units every 4 hours 45-54 mL/hr give 6 units every 4 hours 55-64 mL/hr give 7 units every 4 hours 65-75 mL/hr give 8 units every 4 hours If greater than 75 or change in tube feed call for new orders. When able to take PO, recommend adding Carb Controlled 60/60/75g diet and Lispro Monitoring: BG Q4hrs Diet: NPO 40minutes of this 50minute visit was spent with the patient in counseling on diabetes and treatmentplan, reviewing all glucose and insulin data as well as relevant laboratory results with the patient, and coordination of care on the inpatient unit including nursing and primary team. * Barbie Pelaez, RD - 11/09/2023 11:41 AM EDT Nutrition Progress Note Hayden Russo is a 47 y.o. male with a PMH of inferior STEMI s/p PCI, IDDM2, HTN, HLD, CKD, former smoker. S/p CABGx3. Reason for Assessment: Follow-up, ICU Tube Feeding Nutrition Recommendations: If transitioning to shift or iHD please reconsult for new nutrition recs While on CRRT: Peptamen AF with a goal rate of 75 mL per hour plus 6 scoop(s) protein powder daily Daily multivitamin while on CRRT Monitor BM - optimize regimen with goal of 1 [id number] while on TF Liquid tylenol contains sugar alcohol(s) (sorbitol) that acts as a purgative. If stool output is excessive, consider switching to crushed tablet form. Mg and phos with daily labs Monitor BG - goal of 140-180. DM team following Daily weights I was able to discuss plan with provider [facility] [id number] . Current Nutrition Regimen: Active Orders Diet NPO diet (Hold Meds) Frequency: Effective Now Number of Occurrences: Until Specified All Active TF Orders: Peptamen AF with a goal rate of 75 mL per hour plus 6 scoop(s) protein powder daily This rate is calculated to compensate for unplanned time off feedings due to potential procedures, etc. At goal, this will provide 1500 mL formula, 1950 calories, 150 grams protein, 1218 mL water from formula + 300 mL water from protein powder administration, and 100% of the RDI's for vitamin and minerals. Average tube feeding provision over the past 2 days; 1613 mL vs daily goal volume of 1500mL formula(>100% of goal) Average protein powder provision over the past 2 days; 5 scoops vs daily goal of 6 scoops (83% of goal) Tolerance or barriers to meeting needs: tolerating so far Assessment: Lab Results Component Value Date NA 134 (L) 11/09/2023 NA 138 09/22/2023 K 4.2 11/09/2023 K 4.9 09/22/2023 CL 102 11/09/2023 CL 106 09/22/2023 CO2 23 11/09/2023 CO2 22 09/22/2023 BUN 41 (H) 11/09/2023 BUN 34 (H) 09/22/2023 CREATININE 2.36 (H) 11/09/2023 CREATININE 2.83 (H) 09/22/2023 ESTGFR 27 (L) 09/22/2023 MAGNESIUM 0.84 11/09/2023 MAGNESIUM 0.98 06/07/2023 CALCIUM 8.7 11/09/2023 CALCIUM 9.3 09/22/2023 PHOS 2.8 11/09/2023 AST 24 10/31/2023 AST 19 09/22/2023 ALT 14 10/31/2023 ALT 18 09/22/2023 ALKPHOS 58 10/31/2023 ALKPHOS 97 09/22/2023 BILITOT 0.3 10/31/2023 BILITOT 0.3 09/22/2023 BILIDIR 0.1 09/22/2023 TRIG 464 11/03/2023 TRIG 405 06/05/2023 HA1C 9.5 (H) 10/31/2023 HA1C 11.2 (H) 06/05/2023 25OHVITD 9 (L) 11/04/2023 IRON 14 (L) 11/04/2023 Lab Results Component Value Date POCGLU 152 11/09/2023 POCGLU 228 (H) 11/08/2023 Patient Lines/Drains/Airways Status Active Nutritional LDAs Name Placement date Placement time Site Days Naso/Oral Tube 11/03/23 1203 small bore weighted ([place]) left nostril 11/03/23 1203 left nostril 6 PIV 11/03/23 1659 20 gauge basilic vein (medial side of arm), right 11/03/23 1659 -- 6 Percutaneous Central Line 11/05/23 1130 Triple Lumen 12 Fr internal jugular vein, right 11/05/23 1130 -- 4 Rectal Tube 11/07/23 0629 rectal tube with balloon (specify mL) 11/07/23 0629 -- 2 Urethral Catheter 11/06/23 1251 100% silicone 10 10 11/06/23 1251 -- 3 Oxygen Therapy / Airway Device: Ventilator Shift Pressure Injury Prevention Occiput: No Injury Thoracic Spine: No Injury Sacral: No Injury Ischial - left: No Injury Ischial - right: No Injury Heel - left: No Injury Heel - right: No Injury Elbow - left: No Injury Elbow - right: No Injury Last Bowel Movement: 11/09/23 Intake/Output Summary (Last 24 hours) at 11/09/2023 1141 Last data filed at 11/09/2023 1105 Gross per 24 hour Intake 3937.23 ml Output 5736 ml Net -1798.77 ml Relevant medications: Continuous bicarbonate CRRT with 4 mEq/L K+, 3 mEq/L Ca++ 5 each (11/09/23 0704) dexmedeTOMIDine 1.7 mcg/kg/hr (11/09/23 1124) tube feeding diet 75 mL/hr at 11/09/23 1105 potassium phosphate Stopped (11/05/23 1030) calcium gluconate Stopped (11/05/23 1318) NORepinephrine Stopped (11/09/23 0049) furosemide Stopped (11/07/23 0937) fentaNYL 75 mcg/hr (11/09/23 1105) Scheduled atorvastatin 40 mg Oral QPM QUEtiapine 50 mg Oral Nightly insulin lispro 6-10 Units Subcutaneous Q4H ISAMAR protein powder 2 Scoop Per NG tube TID insulin lispro 1-11 Units Subcutaneous Q4H ISAMAR acetaminophen 1,000 mg Oral Q6H ISAMAR aspirin 81 mg Per NG tube Daily Or aspirin 300 mg Rectal Daily epoetin sha-epbx 10,000 Units Subcutaneous Once per day on Monday ferrous sulfate 300 mg Oral Daily vitamin B Complex-vitamin C-folic Acid 1 tablet Oral Daily ergocalciferoL (vitamin D2) 50,000 Units Per NG tube Weekly AMIOdarone 200 mg Oral Daily heparin (porcine) 7,500 Units Subcutaneous 2 times per day insulin glargine (Lantus;Semglee) (100 unit/mL) subcutaneous injection 50 Units Subcutaneous Q24H clopidogreL 75 mg Oral Daily chlorhexidine 15 mL Oral BID pantoprazole EC 40 mg Oral Daily Or pantoprazole 40 mg Intravenous Daily senna-docusate 2 tablet Oral Daily shift total and Settings verification Intravenous 2 Times Daily - Shift Total albuteroL 6 puff Inhalation Q4H ISAMAR lidocaine 1 patch Transdermal Q24H PRN glucose 40% oral geL OR dextrose OR glucagon, heparin (porcine), hydrALAZINE, sodium chloride 0.9%, sodium chloride 0.9%, ondansetron, bisacodyL, fentaNYL (PF) OR fentaNYL, fentaNYL (PF) OR fentaNYL, potassium chloride in water OR potassium chloride in water OR potassiumchloride in water, HYDROmorphone OR HYDROmorphone, HYDROmorphone, HYDROmorphone Anthropometrics: Admit Weight: 128.91 kg Estimated body mass index is 41.29 kg/m?? as calculated from the following: Height as of this encounter: 177.8 cm (5' 10). Weight as of this encounter: 130.5 kg (287 lb 12.6 oz). [place] Body Weight (IBW) (kg): 75.45 Wt Readings from Last 10 Encounters: 11/09/23 130.5 kg (287 lb 12.6 oz) 09/22/23 123.3 kg (271 lb 14.4 oz) 09/12/23 122.1 kg (269 lb 3.2 oz) 08/04/23 121.2 kg (267 lb 4.8 oz) 06/07/23 118.5 kg (261 lb 3.9 oz) 11/27/18 99.8 kg (220 lb) 10/14/18 99.8 kg (220 lb 0.3 oz) Patient Vitals for the past 168 hrs: Weight 11/09/23 0310 130.5 kg (287 lb 12.6 oz) 11/08/23 0554 133.7 kg (294 lb 12.1 oz) 11/07/23 0500 135.2 kg (298 lb 1 oz) 11/06/23 0449 134.1 kg (295 lb 10.2 oz) 11/05/23 0400 122.1 kg (269 lb 2.9 oz) 11/04/23 0400 134.6 kg (296 lb 11.8 oz) 11/03/23 0600 121.5 kg (267 lb 13.7 oz) Weight Source: Bed Estimated / Assessed Needs: Kcal / K - 1944 Kcal (12 Kcal/Kg - 16 Kcal/Kg) Estimated Protein Needs: 136 g - 166 g (1.8 g/Kg - 2.2 g/Kg IBW) Nutrition intake and intake history / interview: 11/08: TF at goal. Continues on CRRT. BM output increasing, liquid meds noted. 11/06: Per team, starting CRRT today - updated TF recs. 11/05: TF at goal. Off propofol, TG of 464. Started on CRRT, held today. LBM 11/02. 11/02: Consulted for TF recs. Per team, starting trickle TF today. NPO x 5 days. Nutrition Focused Physical Exam: Not performed Reason NFPE Not Performed: Patient not available at time of assessment. Malnutrition Diagnosis: Not enough data to assess (Sharri et vito, CHANEL J Parenteral Enteral Nutr. 2011; 36(3): 273-83) Nutrition to continue to follow up while inpatient Thank you, Barbie Bernard. Benigno, MS, RD, LD, [facility] Clinical Nutrition * Clay Aby, FARM EQUIPMENT OPERATOR - 11/09/2023 8:22 AM EDT Cardiac Surgery Progress Note Hayden Russo is a 47 y.o. male with CAD who is 10 Days Post-Op CABGx3. PMH of inferior STEMI s/p PCI, IDDM2, HTN, HLD, CKD, former smoker. 24h Events: Continues cvvh, tolerating goal -2L on the day Continues on dopa at 2 Fio2 50% remains on nitric weaned to 1 7.39/39/100/23 S: Intubated and sedated, awake following commands O: Temp: [36.6 ??C (97.9 ??F)-37.9 ??C (100.2 ??F)] Heart Rate: [57-70] Resp: [16-34] BP: -- SpO2: [95 %-100 %] Heart Rate from SpO2: -- Drips: Dex 1.7 Fent 75 dopa 2 Lasix off Tf at goal Vent settings: VC 590 x 10 50% PEEP 10 Sofía at 1 ppm 11/07 0701 - 11/08 0700 In: 3963 [I.V.:1738] Out: 6150 [Urine:380] Admit weight: 128.91 kg Current weight: Weight: 130.5 kg (287 lb 12.6 oz) Physical Exam: General: Lying in bed on ventilator. Appears older than stated age. NAD. Neuro: Intubated and sedated. PERRL. Opens eyes to voice. Follows commands in all 4 extremities. Lungs: Bilateral mechanical breath sounds present. Heart: RRR, S1S2 diminished, no murmurs, A paced on tele Abdomen: Obese, rotund, slightly distended +bowel sounds nontender Ext: WWP, 1+ edema Incisions: SAMUEL CDI Tubes/Lines/Drains: RIJ HD line, [place], TPW, Todd, DHT, PIV, flexiseal Assessment/Plan: 47 y.o. male 10 Days Post-Op CABGx3 MV CAD s/p CABGx3 RV dysfunction ASA / Plavix Statin Stop dopa Continue cvvh run for goal -2L/24 hrs Wean fent gtt, sedation TF hold at MN Nitric off Wean vent settings, PS Will attempt extubation tomorrow am Seroquel nightly for sleep Post operative acute hypoxemic respiratory failure Continue sedation with Dex / Fent wean planning extubation tomorrow Continue tube feeds at goal via DHT, hold at MN Moving bowels, continue flexiseal Sputum, BC NGTD Completed 6 days zosyn Stop Sofía Wean vent Scheduled albuterol Post operative atrial fibrillation related to cardiac surgery Amio 200 qd Single episode, will discuss A/C if has further episodes Acute on chronic renal insufficiency Hyperkalemia (resolved) Hyperphosphatemia Hypocalcemia Vit D deficiency continue CVVH continue Dopamine for now Daily BMPs Monitor UOP Nephrology following Avoid PICC placement Vitamin D 50k weekly Age indeterminate right peroneal DVT B/l LE duplex 11/02 with age indeterminate right peroneal DVT No strong indication for A/C at this time Cont SQH for DVT ppx SCDs Acute hypertriglyceridemia While on propofol Tolerating precedex from temperature standpoint, continue Recheck triglycerides if propofol restarted Acute post-op blood loss anemia Anemia of CKD Transfused 1 unit 11/03 and 11/04, 11/06 Continue Epogen 10k 3 times weekly Daily CBC Iron labs c/w chronic anemia HTN Holding home losartan, coreg T2DM Sick Euthyroid state Recent A1c 11.2, repeat 9.5 Lantus 50U daily DM following, appreciate recs, custom q4h correction scale, TF correction No thyroid replacement necessary, repeat labs in 4-6 weeks Dispo: CVCC, full code Discussed with attending surgeon on rounds this morning. ABY WILLIAMSON APRN 11/09/2023 Between the hours of 1800 - 0600 and on the weekends please page [phone]. * Cristina Bran MD - 11/09/2023 7:09 AM EDT Cardiovascular Critical Care Attending Note Hayden Russo 1975 Age: 47 y.o. PCP: Bandar Hahn MD Date of Service: 11/09/2023 Date of Admission: 10/30/2023 Length of Stay Hospital Day 10 days Patient ID: Hayden Russo is a 47 y.o. male with a history of ASCVD presenting with inferior STEMI s/p RCA PCI 2018 with recurrent RCA closures and repeat PCI (most recently July 2023), ischemic cardiomyopathy (LVEF 45%, RV dysfunction), poorly controlled IDDM2, chronic renal insufficiency (baseline creatinine in 2s), BMI 42, HTN, HLD, TUD in remission who is now s/p planned 3vCABG (GREENWOOD-LAD, SVG-OM2, SVG-RPDA) with Dr. Person on 10/30/23 with post-op course complicated by RV failure, cardiogenic shock, severe hypoxic respiratory failure and acute kidney injury on CKD. The patient was seen and examined on critical care rounds. Hayden Russo is a 47 y.o. male with the following active issues: Cardiogenic shock Right ventricular failure, acute on chronic Acute hypoxic respiratory failure ASCVD s/p 3vCABG (GREENWOOD-LAD, SVG-OM2, SVG-RPDA; Dr. Person on 10/30/23) Acute on chronic HFpEF Ischemic Cardiomyopathy Acute renal failure, non-oliguric on CKD4 (baseline creatinine in the 2s) IDDM2, poorly controlled Obesity, Class 3 BMI 42 Distal RLE DVT (peroneal) INTERVAL HISTORY: No acute events CRRT running successfully and able to pull negative [place] UOP 380mL/24 hours CRRT removal 4950mL/24 hours Net negative 2187mL/24 hours Remains off norepinephrine Stable oxygenation profile, Sofía able to be weaned over the course of the day yesterday, on 1ppm this am MEDICATIONS: Scheduled Meds: atorvastatin 40 mg Oral QPM QUEtiapine 50 mg Oral Nightly insulin lispro 6-10 Units Subcutaneous Q4H [facility] protein powder 2 Scoop Per NG tube TID insulin lispro 1-11 Units Subcutaneous Q4H ISAMAR acetaminophen 1,000 mg Oral Q6H ISAMAR aspirin 81 mg Per NG tube Daily Or aspirin 300 mg Rectal Daily epoetin sha-epbx 10,000 Units Subcutaneous Once per day on Monday ferrous sulfate 300 mg Oral Daily vitamin B Complex-vitamin C-folic Acid 1 tablet Oral Daily ergocalciferoL (vitamin D2) 50,000 Units Per NG tube Weekly AMIOdarone 200 mg Oral Daily heparin (porcine) 7,500 Units Subcutaneous 2 times per day insulin glargine (Lantus;Semglee) (100 unit/mL) subcutaneous injection 50 Units Subcutaneous Q24H clopidogreL 75 mg Oral Daily chlorhexidine 15 mL Oral BID pantoprazole EC 40 mg Oral Daily Or pantoprazole 40 mg Intravenous Daily senna-docusate 2 tablet Oral Daily shift total and Settings verification Intravenous 2 Times Daily - Shift Total albuteroL 6 puff Inhalation Q4H ISAMAR lidocaine 1 patch Transdermal Q24H Continuous Infusions: bicarbonate CRRT with 4 mEq/L K+, 3 mEq/L Ca++ 5 each (11/09/23 0704) nitric oxide dexmedeTOMIDine 1.7 mcg/kg/hr (11/09/23 0700) tube feeding diet Stopped (11/09/23 0616) DOPamine 2 mcg/kg/min (11/09/23 0700) potassium phosphate Stopped (11/05/23 1030) calcium gluconate Stopped (11/05/23 1318) NORepinephrine Stopped (11/09/23 0049) furosemide Stopped (11/07/23 0937) fentaNYL 75 mcg/hr (11/09/23 0700) EXAM: Last value Range last 24 hrs Temperature Temp: 36.8 ??C (98.2 ??F) Temp: [36.6 ??C (97.9 ??F)-37.9 ??C (100.2 ??F)] Heart Rate Heart Rate: 70 Heart Rate: [57-70] Blood Pressure BP: 154/59 BP: -- Respiratory Rate Resp: 17 Resp: [15-34] SpO2 SpO2: 100 % SpO2: [95 %-100 %] Art BP BP (Arterial Line): 129/64 BP (Arterial Line): (99-140)/(47-64) Weights: Patient Vitals for the past 168 hrs: Weight 11/09/23 0310 130.5 kg (287 lb 12.6 oz) 11/08/23 0554 133.7 kg (294 lb 12.1 oz) 11/07/23 0500 135.2 kg (298 lb 1 oz) 11/06/23 0449 134.1 kg (295 lb 10.2 oz) 11/05/23 0400 122.1 kg (269 lb 2.9 oz) 11/04/23 0400 134.6 kg (296 lb 11.8 oz) 11/03/23 0600 121.5 kg (267 lb 13.7 oz) Gen- Middle aged male, intubated, but rouses on sedation HEENT- Endotracheally intubated CV- Regular, normal rate Pulm- Mechanically ventilated Abd- Obese, soft Ext- Warm, +edema Neuro- Lightly sedated, moves all extremities purposefully, follows commands Psych- Cooperative Skin- Non-diaphoretic Lines- RIJ temp dialysis line, LRA art line, PIVs, Todd, ETT, DHT PERTINENT DIAGNOSTICS: WBC 18.3 <= 13.9 HGB 8.9 (stable) PLT 273 BUN/Cr 41/2.36 on CRRT (peak off CRRT 101/6.39) Na 134 K 4.2 CO2 23 Mg 0.84 Phos 2.8 Serial ABGs reviewed with normal acid/base status and stable oxygenation with weaning of Sofía Glycemic control suboptimal 152-250 in last 24 hours (Ha1c 9.5) Lactate serially normal, most recently 0.[address] from 11/01 personally reviewed with bilateral lower lobe atelectasis, extensive CXR 11/04 personally reviewed with persistent bibasilar opacities, appropriate line/tube positioning Duplex DVT 11/02- Right peroneal vein occlusive DVT, age indeterminate. Left normal. ASSESSMENT, MANAGEMENT, and DECISION MAKING: Hayden Russo is a 47 y.o. male with a history of ASCVD presenting with inferior STEMI s/p RCA PCI 2018 with recurrent RCA closures and repeat PCI (most recently July 2023), ischemic cardiomyopathy (LVEF 45%, RV dysfunction), poorly controlled IDDM2, chronic renal insufficiency (baseline creatinine in 2s), BMI 42, HTN, HLD, TUD in remission who is now s/p planned 3vCABG (GREENWOOD-LAD, SVG-OM2, SVG-RPDA) with Dr. Person on 10/30/23 with post-op course complicated by RV failure, cardiogenic shock, severe hypoxic respiratory failure and acute kidney injury on CKD. Currently stably supported, with significant DONAL on CKD and ongoing hypoxic respiratory failure. Despite aggressive diuresis remained net positive with rising BUN and creatinine, now on CRRT and managing well. Respiratory status slowly improving- will wean Sofía to off today, then FiO2, followed by PEEP to 8 if able. Neuro- Sedation precedex. Analgesia fent, lido patch, APAP. Goal RASS 0. Cardiovascular- Goal MAP 65-75. DC dopamine today and monitor heart rate. Amio po; currently remaining in sinus rhythm. Continue DAPT for now but once on therapeutic AC would hold ASA and continue plavix (note PCI RCA July 2023). Atorva. Pulmonary- Wean Sofía to off, then FiO2. If doing well with this, would take PEEP from 10 to 8 but not lower. Inhaled therapies. Avoid de-recruitment. FEK- Continue CRRT for volume management and optimization of metabolic parameters. GI- Enteral TFs. PPI. RBOs. ID- Pip/tazo Dc'd 11/07. Continue to monitor; leukocytosis noted. Heme- SQH, timing for therapeutic AC for afib/DVT as per surgeon. NB distal (low risk) RLE DVT of unclear chronicity. Repeat DVT studies later this week to assess for interval change while off AC. Endo- Basal/bolus for goal euglycemia. DM management team following. Psych- No acute issues IS THE PATIENT CRITICALLY ILL? Is there a high potential of sudden, clinically significant, or life threatening deterioration? Yes Is there a need for direct personal assessment and management to treat/prevent multiple vital organfailure/deterioration? Yes If this patient is not critically ill, the reason for continued hospitalization is NA. PATIENT IS CRITICALLY ILL WITH THESE DIAGNOSES BEING MANAGED BY Cardiology team providing critical care services ARDS PA Catheter Hyponatremia X Hypoxemic Resp Failure Cardiogenic Shock Hypernatremia Pneumonia req Ventilator Acute Myocardial Infarction Hyperkalemia Hypercarbic Resp Failure Subarachnoid Hemorrhage Acute Drug Ingestion / OD Respiratory Acidosis Traumatic Brain Injury X Acute Renal Failure Acute Resp Failure Coma Acute Liver Failure Metabolic Acidosis Stupor Thrombocytopenia Hypotension, Fluids Delirium Neutropenia Hypotension, Pressors Acute Encephalopathy Hypertensive Emergency Sepsis Ascites Req Treatment Malnutrition Septic Shock with SIRS Coagulopathy Req Treatment Anaphylaxis Active Hemorrhage I personally performed 35 minutes of aggregate critical care time exclusive of procedures and teaching. This includes time spent during direct patient evaluation and reassessment, interpreting diagnostic tests, directing life and/or organ supporting interventions and documentation on the unit. The time documented is independent of the care provided by the Cardiology/Cardiac Surgery attending of record. Cristina Bran MD 11/09/2023 * Alicia Clayton RCP - 11/09/2023 5:53 AM EDT AMV Protocol: Yes SBT Protocol: Yes SBT: Not performed/Excluded: PEEP greater than 10 cmH2O Vent Settings: Ventilator Mode: VC Tidal Volume Set: 590 Resp Rate Set: 15 PEEP Set: 10 FiO2: 50 % Ventilator Measurements: Resp: 26 Vt Exhaled: 572 PIP: 36 MAP: 17 Plateau Press: 28 Ve: 12.1 PEEP: 10 cmH20 SpO2: 96 % EtCO2: 33 mmHg Airway: 8.0 @ 25 cm at the Teeth. Skin Integrity: WDL MDI Inhaled Medications: Albuterol Q4 Breath Sounds: coarse Secretions: small, clear; white, thick Assessment / Events / Plan of the Day: Received pt on above settings. Events: Sofía weaned to 1ppm @1922 per CCS teams weaning plan. 2038 AB.42, 37, 76, 23.5/-0.9 0019 AB.41, 36, 85, 22.2/-2.5 Pt remained on above settings without any acute respiratory events overnight. Plan: Continue AMV protocol; wean vent settings as tolerated. Continue Sofía therapy and adjust per CCS team. Alicia Clayton RCP * Ligia De Leon MD - 11/08/2023 6:12 PM EDT Critical Care Medicine Staff Progress Note 47 y.o. male with h/o STEMI s/p PCI, IDDM, HTN, CKD, s/p CABG x 3 with course c/b right heart dysfunction, hypoxemia. Slowly improving 24 hr events/subjective: - improved oxygenation - CVVH started Drips: - dopamine 2 PE Temp: [36.9 ??C (98.4 ??F)-37.7 ??C (99.9 ??F)] Heart Rate: [58-71] Resp: [15-34] BP: (154)/(59) SpO2: [92 %-100 %] Heart Rate from SpO2: -- Vent settings: 590 x 15 10 50% nitric 5ppm Gen: morbidly obese male, intubated, sedated CVS: RRR Lungs: coarse at bases, no wheezing Abd: soft, NT, ND Ext: WWP, edema bilateral lower extremities Skin: no rashes Neuro: opens eyes to voice, moves all extremities Labs Last 3 wbc, hgb, hct plt Recent Labs 11/08/23 0009 11/07/23 0016 11/06/23 0001 WBC 13.91* 12.47* 13.00* HGB 9.0* 7.9* 8.3* HCT 28.8* 25.0* 26.2* PLATELET 324 361* 300 Last 3 Lytes Recent Labs 11/08/23 1153 11/08/23 0552 11/08/23 0009 11/07/23 1743 NA 139 142 142 143 K 4.3 3.4* 3.7 4.1 CL 105 112* 108* 105 CO2 22 18* 22 22 BUN 53* -- 65* 83* CREATININE 2.82* -- 3.50* 4.71* Last 3 LFTs Recent Labs 10/31/23 1148 10/30/23 0657 09/22/23 1457 AST 24 16 19 ALT 14 13 18 ALKPHOS 58 77 97 BILITOT 0.3 0.3 0.3 BILIDIR -- -- 0.1 Last Ca, Mg, Phos Recent Labs 11/08/23 1153 11/08/23 0009 CALCIUM -- 8.2* PHOS 3.1 4.4 MAGNESIUM 0.85 0.88 Last 3 Coags Recent Labs 11/03/23 2353 11/03/23 1305 PT 12.4 13.0* INR 1.1 1.1 Studies CXR: lung base opacities, decreased. This could be pneumonia or atelectasis I/O overnight: I/O this shift: In: 1526.8 [I.V.:706.8; NG/GT:800] Out: 3129 [Urine:195; Other:2314; Stool:620] Weight: Patient Vitals for the past 168 hrs: Weight 11/08/23 0554 133.7 kg (294 lb 12.1 oz) 11/07/23 0500 135.2 kg (298 lb 1 oz) 11/06/23 0449 134.1 kg (295 lb 10.2 oz) 11/05/23 0400 122.1 kg (269 lb 2.9 oz) 11/04/23 0400 134.6 kg (296 lb 11.8 oz) 11/03/23 0600 121.5 kg (267 lb 13.7 oz) 11/02/23 0402 133.9 kg (295 lb 3.1 oz) Micro: No results for input(s): URINECULTURE in the last 720 hours. Recent Labs 11/02/23 1254 11/02/23 1829 11/02/23 1838 GRAMSTAIN No squamous epithelial cells* Moderate neutrophils* Few Gram negative rods* Few Gram positive cocci* No squamous epithelial cells Many Neutrophils seen Few Mixed bacterial morphotypes suggestive of normal upper respiratory adrian No squamous epithelial cells Many Neutrophils seen Rare Mixed bacterial morphotypes suggestive of normal upper respiratory adrian LOWERRESPCX Rare mixed bacterial morphotypes suggestive of normal upper respiratory adrian Rare mixed bacterial morphotypes suggestive of normal upper respiratory adrian Rare mixed bacterial morphotypes suggestive of normal upper respiratory adrian Recent Labs 11/06/23 2215 BLOODCX No Growth at 18-24 hrs. Lab Results Component Value Date GRAMSTAIN No squamous epithelial cells 11/02/2023 GRAMSTAIN Many Neutrophils seen 11/02/2023 GRAMSTAIN 11/02/2023 Rare Mixed bacterial morphotypes suggestive of normal upper respiratory adrian T/L/D Todd 11/05 ETT 10/29 CVL 11/04 [place] 10/29 ETT 10/29 ASSESSMENT, MANAGEMENT, and DECISION MAKIN y.o. male with h/o STEMI s/p PCI, IDDM, HTN, CKD, s/p CABG x 3 with course c/b right heart dysfunction, hypoxemia secondary to atelectasis, volume overload. Slowly improving - continue CVVH, goal net negative 1-2L. Appreciate nephrology input - wean nitric today- monitor for HD stability and oxygenation - Keep FiO2 at 50%, PEEP 10 - discontinue antibiotics - continue precedex, avoid propofol if able due to hypertriglyceridemia - on dopamine, can wean over the next day - ASA/ Plavix, Statin Ppx: - scd's - HOB >30 - mouth care - hep sq - PPI Code status: FULL CODE IS PATIENT CRITICALLY ILL ? Is there a high potential of sudden, clinically significant, or life threatening deterioration? Yes Is there a need for direct personal assessment and management to treat/prevent multiple vital organfailure/deterioration? Yes If this patient is not critically ill, the reason for continued hospitalization is [] PATIENT IS CRITICALLY ILL WITH THESE DIAGNOSES BEING MANAGED BY CCS TEAM: Congestive Heart Failure Diastolic Acute on chronic Renal Disease/Failure Acute Respiratory Failure Acute with hypoxia I personally performed 55 minutes of aggregate critical care time exclusive of procedures and teaching. This includes time during direct patient evaluation and reassessment, interpreting labs and studies, directing life and/or organ supporting organ interventions, and documentation on the unit. * Alice Stewart MD - 11/08/2023 1:35 PM EDT NEPHROLOGY PROGRESS NOTE Reason for consult: DONAL, volume overload. Interval History: Patient seen and examined in the ICU on CRRT. Clinical and laboratory data reviewed. Nurse reports that he still becomes somewhat hemodynamically unstable when there are transitions, such as when they have to swap out the filter. Once he is running, everything is fine. PE: Intubated and sedated. Distant heart sounds. Clear lungs on limited examination. Edema/anasarca is present. Abdomen is firm. I/O last 3 completed shifts: In: 6306.3 [I.V.:2900.2; Blood:338.3; NG/GT:2367.8; IV Piggyback:450] Out: 8715 [Urine:5080; Other:2610; Stool:1025] I/O this shift: In: 944.8 [I.V.:424.8; NG/GT:500] Out: 1981 [Urine:140; Other:1291; Stool:550] A/R: DONAL - Nurse gradually trying to increase UF. Was able to run net negative 2.1L yesterday. Metabolic labs - Potassium still low despite 4K bath and KPhos. Getting replacement. Still has metabolic acidosis; increased RFR from 3L to 4L. Hyperphosphatemia has resolved on CRRT, as expected. Alice Stewart MD Nephrology Pager: [phone] * Michelle Pretty, FARM EQUIPMENT OPERATOR - 11/08/2023 11:06 AM EDT Addendum 1600: BG continue to be over 200 with increased TF rates and increased dose, without any other dextrose sources or notable causes. Plan to increase TF insulin again: TUBE FEED ASSOCIATED For Peptamen AF tube feed - 112 grams of carbohydrate per 1000 cc - Starting 25mL/hr, and titratingup Q6hrs by 10mL, with Goal rate 75mL/hr HOLD if tube feed not running HOLD if BG less than 80 Based on 1:3.5 I:C ratio TO COVER THE NEXT 4 HOURS OF TUBE FEEDS 25-34 mL/hr give 6 units every 4 hours 35-44 mL/hr give 7 units every 4 hours 45-54 mL/hr give 8 units every 4 hours 55-64 mL/hr give 9 units every 4 hours 65-75 mL/hr give 10 units every 4 hours If greater than 75 or change in tube feed call for new orders. Glucose Management Team Inpatient Progress Note HPI Hayden Russo is a 47 y.o. male from [place], [place], with PMH significant for ASCVD-CAD (2019 STEMI w/PCI - RCA stent, then occluded and re-stented 05/2023), CKD (eGFR 33), IDDM2 poorly controlled (A1c 11.2% 05/2023), who was admitted on 10/30/2023 currently being treated for re-occlusion of stents, now s/p 10/29 CABG X3. Original consult completed: 10/31/2023 Patient Interview & Updates Yesterday started Peptamen AF up-titrating volume, with goal 75mL/hr, and has been at goal since midnight. He continues to need 2u Q4 correction with BG ranging 140-200s, so close to goal. Ambrocio is awake and was interactive during my visit. Objective Temp: [36.9 ??C (98.4 ??F)-37.5 ??C (99.5 ??F)] Heart Rate: [58-71] Resp: [15-26] BP: (135-154)/(59-62) SpO2: [89 %-100 %] Heart Rate from SpO2: -- Wt Readings from Last 3 Encounters: 11/08/23 133.7 kg (294 lb 12.1 oz) 09/22/23 123.3 kg (271 lb 14.4 oz) 09/12/23 122.1 kg (269 lb 3.2 oz) Current Regimen from Yesterday Insulin glargine 50u QD at 1800 Lispro for Correction: Custom 1:15 >140 Q4hrs Lispro for TF: TUBE FEED ASSOCIATED For Peptamen AF tube feed - 112 grams of carbohydrate per 1000 cc - Starting 25mL/hr, and titratingup Q6hrs by 10mL, with Goal rate 75mL/hr HOLD if tube feed not running HOLD if BG less than 80 Based on 1:6 I:C ratio TO COVER THE NEXT 4 HOURS OF TUBE FEEDS 25-34 mL/hr give 2 units every 4 hours 35-44 mL/hr give 3 units every 4 hours 45-54 mL/hr give 4 units every 4 hours 55-64 mL/hr give 5 units every 4 hours 65-75 mL/hr give 6 units every 4 hours If greater than 75 or change in tube feed call for new orders. Monitoring: BG Q4hrs Diet: NPO Relevant Meds: TF (Peptamen Intense VHP - 76g/1000mL, goal rate 55ml/hr); Dopamine in D5% (11/05-present); (Chlorothiazide in D5%(intermittent doses) Prior: 10/29 1811 - D10 w/10u Regular insulin for hyperkalemia; Norepinephrine in D5% 10/29-0003 10/30);Epinephrine in D5%; Milrinone in D5%; chlorothiazide in D5; TDD: 11/05: 94u (50u basal, 15u TF, 29u correction ) - most correction prior to starting TF insulin; 4u correction overnight 11/04: 60u (50u basal, 10u correction) - 9u correction overnight with TF running Recent Glucose Levels Recent Labs 11/08/23 0740 11/08/23 0412 11/08/23 0013 11/07/23 1713 11/07/23 1524 11/07/23 0849 11/06/23 1918 11/05/23 0926 11/05/23 0550 11/05/23 0418 11/05/23 0007 11/04/23 2213 POCGLU 165 158 191 153 158 158 234* 198 162 169 182 151 ASSESSMENT Hayden Russo is a 47 y.o. years old male with PMH significant for IDDM2 (Last A1C of 11.2% 05/2023) who was admitted on 10/30/2023 for re-occlusion of stents, now s/p 10/29 CABG X3. Diabetes poorlycontrolled and complicated by acute illness. Currently variable blood glucose levels while hospitalized requiring adjustment of insulin regimen and DM medications. BG have continued mostly above target, with up-trend now that TF volume is at goal 75mL/hr. Plan toincrease TF insulin today with goal over BG <180, 1st new dose at noon. Recommendations given toteam and orders pended. RECOMMENDATIONS: Insulin glargine 50u QD at 1800 Lispro for Correction: Custom 1:15 >140 Q4hrs INCREASE Lispro for TF: TUBE FEED ASSOCIATED For Peptamen AF tube feed - 112 grams of carbohydrate per 1000 cc - Starting 25mL/hr, and titratingup Q6hrs by 10mL, with Goal rate 75mL/hr HOLD if tube feed not running HOLD if BG less than 80 Based on 1:4.25 I:C ratio TO COVER THE NEXT 4 HOURS OF TUBE FEEDS 25-34 mL/hr give 4 units every 4 hours 35-44 mL/hr give 5 units every 4 hours 45-54 mL/hr give 6 units every 4 hours 55-64 mL/hr give 7 units every 4 hours 65-75 mL/hr give 8 units every 4 hours If greater than 75 or change in tube feed call for new orders. When able to take PO, recommend adding Carb Controlled 60/60/75g diet and Lispro Monitoring: BG Q4hrs Diet: NPO Discharge Planning/salvage determiner diabetes care: Medications - Outpatient treatment regimen recommendations pending based on the hospital course. Home: These doses need clarification when patient able to communicate. Farxiga 10mg QD - likely restart at discharge. Insulin glargine (Basaglar) pen Humalog 20u TID w/meals No Ozempic since May - unknown reason. Monitoring BG tid ac & hs Follow-up: PCP 50 minutes were spent over the course of the day with this patient encounter including time spent in chart review and relevant lab result review, assessment of and counseling with the patient on diabetes and treatment plan, reviewing all glucose and insulin data, and coordination with the consulting service. Michelle Pretty APRN, DNP, BC-ADM Inpatient Diabetes Management Team Team pager #[phone] * Aby Williamson APRN - 11/08/2023 9:02 AM EDT Cardiac Surgery Progress Note Hayden Russo is a 47 y.o. male with CAD who is 9 Days Post-Op CABGx3. PMH of inferior STEMI s/p PCI, IDDM2, HTN, HLD, CKD, former smoker. 24h Events: One unit blood given, hgb 9 this am Started CVVH tolerating now pulling 25ml/hr Continues on dopa at 2 Made 2.6 u/o lasix stopped, -2.1L on the day Fio2 60% remains on nitric 10 7.41/37/83/23 S: Intubated and sedated, awake following commands O: Temp: [36.9 ??C (98.4 ??F)-37.5 ??C (99.5 ??F)] Heart Rate: [58-71] Resp: [15-26] BP: (135-154)/(59-62) SpO2: [89 %-100 %] Heart Rate from SpO2: -- Drips: Dex 1.7 Fent 100 dopa 2 Lasix off Tf at goal Vent settings: VC 590 x 10 60% PEEP 10 Sofía at 10 ppm 11/06 0701 - 11/07 0700 In: 4040 [I.V.:1778.9] Out: 6170 [Urine:2635] Admit weight: 128.91 kg Current weight: Weight: 133.7 kg (294 lb 12.1 oz) Physical Exam: General: Lying in bed on ventilator. Appears older than stated age. NAD. Neuro: Intubated and sedated. PERRL. Opens eyes to voice. Follows commands in all 4 extremities. Lungs: Bilateral mechanical breath sounds present. Heart: RRR, S1S2 diminished, no murmurs, A paced on tele Abdomen: Obese, +bowel sounds, ND Ext: WWP, 1+ edema Incisions: SAMUEL CDI Tubes/Lines/Drains: RIJ HD line, Morelia, TPW, Todd, DHT, PIV, flexiseal Assessment/Plan: 47 y.o. male 9 Days Post-Op CABGx3 MV CAD s/p CABGx3 RV dysfunction ASA / Plavix Statin Continue dopa for now Continue cvvh run -25/hr Wean fent gtt Seroquel nightly for sleep CXR Levo to keep map >65, sbp >90 Post operative acute hypoxemic respiratory failure Continue sedation with Dex / Fent wean CT chest 11/01 with bilateral lower lobe collapse Continue tube feeds at goal via DHT Moving bowels, continue flexiseal BAL sent 11/01, final results with rare mixed bacteria c/w normal upper respiratory adrian BC NGTD Stop zosyn Continue Sofía for now Continue vent support with PEEP of 10, wean fio2 as able Scheduled albuterol Post operative atrial fibrillation related to cardiac surgery Amio 200 qd Single episode, will discuss A/C if has further episodes Acute on chronic renal insufficiency Hyperkalemia (resolved) Hyperphosphatemia Hypocalcemia Vit D deficiency continue CVVH continue Dopamine for now Daily BMPs Monitor UOP Nephrology following Avoid PICC placement Vitamin D 50k weekly Age indeterminate right peroneal DVT B/l LE duplex 11/02 with age indeterminate right peroneal DVT No strong indication for A/C at this time Cont SQH for DVT ppx SCDs Acute hypertriglyceridemia While on propofol Tolerating precedex from temperature standpoint, continue Recheck triglycerides if propofol restarted Acute post-op blood loss anemia Anemia of CKD Transfused 1 unit 11/03 and 11/04, 11/06 Continue Epogen 10k 3 times weekly Daily CBC Iron labs c/w chronic anemia HTN Holding home losartan, coreg T2DM Sick Euthyroid state Recent A1c 11.2, repeat 9.5 Lantus 50U daily DM following, appreciate recs, custom q4h correction scale, TF correction No thyroid replacement necessary, repeat labs in 4-6 weeks Dispo: CVCC, full code Discussed with attending surgeon on rounds this morning. ABYMaryanne WILLIAMSON, RAMONA 11/08/2023 Between the hours of 1800 - 0600 and on the weekends please page [phone]. * Meri Clark RT - 11/08/2023 8:45 AM EDT AMV Protocol: Yes SBT Protocol: Yes SBT: Not performed Vent Settings: Ventilator Mode: VC Tidal Volume Set: 590 Resp Rate Set: 15 PEEP Set: 10 FiO2: 50 % Ventilator Measurements: Resp: 22 Vt Exhaled: 594 PIP: 30 MAP: 16.9 Plateau Press: 28 Ve: 12.1 PEEP: 10 cmH20 SpO2: 95 % EtCO2: 32 mmHg Airway: 8.0 @ 25 cm at the Teeth. Skin Integrity: WDL MDI Inhaled Medications: Albuterol Breath Sounds: Coarse/ Diminished Secretions: Small - Moderate white thick/ thin Assessment / Events / Plan of the Day: Received patient intubated and mechanically ventilated on VCV 590 x 15 + 10 60% w/ Sofía therapy @ 10ppm. ABG @ 0910 - 7.41 34 133 21 - fio2 weaned to 50% per team ABG @ 1152 - 7.41 39 111 24 - Sofía dose weaned to 5PPM. Per Team, wean Sofía by 1PPM every 2 hours until at 1ppm. Leave on 1ppm overnight 1330 - weaned to 4PPM 1530 - weaned to 3PPM 1730 - weaned to 2PPM *next wean to 1PPM to be done at 1930 Plan: Continue to support. Wean as tolerated. Wean Sofía per team. RT Rose Mary * Alicia Clayton RCP - 11/08/2023 6:01 AM EDT AMV Protocol: Yes SBT Protocol: Yes SBT: Not performed/Excluded: PEEP greater than 10 cmH2O Vent Settings: Ventilator Mode: VC Tidal Volume Set: 590 Resp Rate Set: 15 PEEP Set: 10 FiO2: 60 % Ventilator Measurements: Resp: 18 Vt Exhaled: 542 PIP: 32 MAP: 15 Plateau Press: 28 Ve: 9.3 PEEP: 10 cmH20 SpO2: 98 % EtCO2:36 mmHg Airway: 8.0 @ 25 cm at the Teeth. Skin Integrity: WDL MDI Inhaled Medications: Albuterol Q4 Breath Sounds: coarse Secretions: moderate, white; clear, thin Assessment / Events / Plan of the Day: Received pt on above settings w/ Sofía therapy @ 10ppm. Events: 1956 AB.41, 37, 112, 23.0/-1.6 001 AB.40, 37, 103, 22.3/-2.5 Pt increasing more dyssynchronous on ventilator this AM, no vent changes made per CCS team. Plan: Continue AMV protocol; wean vent settings as tolerated. Continue Sofía therapy and adjust per CCS team. Alicia Clayton RCP * Mamie Mckeon RCP - 11/07/2023 4:42 PM EDT AMV Protocol: Yes SBT Protocol: Yes Vent Settings: Ventilator Mode: VC Tidal Volume Set: 590 Resp Rate Set: 15 PEEP Set: 10 FiO2: 60 % Ventilator Measurements: Resp: 18 Vt Exhaled: 563 PIP: 34 MAP: 15.7 Plateau Press: 28 Ve: 9.8 PEEP: 10 cmH20 SpO2: 95 % EtCO2: 33 mmHg Airway: 8.0 @ 25 cm at the Teeth. Skin Integrity: WDL MDI Inhaled Medications: Albuterol Breath Sounds: Diminished. Secretions: Small thick white. Assessment / Events / Plan of the Day: Pt received on the above VCV. O2 being titrated for sat . 92%. Remains on the above setting and will continue to wean as tolerated. SOFÍA 10ppm no changes. Mamie M Young, COMPONENT PREP OPERATOR * Alice Stewart MD - 11/07/2023 2:46 PM EDT NEPHROLOGY PROGRESS NOTE Reason for consult: DONAL, volume overload. Interval History: Patient seen and examined in the ICU on CRRT. Clinical and laboratory data reviewed. Prior to making another attempt at CVVH, patient was transfused. Currently stable on treatment. PE: Intubated and sedated. Reclining in bed. Distant heart sounds. Clear lungs on limited examination. Edema/anasarca is present. Abdomen is firm. I/O last 3 completed shifts: In: 6514.3 [I.V.:3269.9; NG/GT:1886.3; IV Piggyback:918] Out: 5490 [Urine:5390; Stool:100] I/O this shift: In: 1315.4 [I.V.:518.8; Blood:338.3; NG/GT:378.3] Out: 1428 [Urine:1250; Other:128; Stool:50] Creatinine (mg/dL) Date Value 11/07/2023 6.24 (H) 11/07/2023 6.39 (H) 11/06/2023 5.61 (H) 09/22/2023 2.83 (H) 08/04/2023 2.39 (H) 06/07/2023 2.49 (H) A/R: DONAL - Thus far, CVVH is running without difficulty. Will defer UF to the primary team, but will need to be judicious with fluid removal until it is clear he can tolerate ongoing CRRT. Metabolic labs - Hypernatremic, improved. Regardless of volume status, will need to get adequate free water to maintain normonatremia. Acidosis should correct with CRRT. Phosphorus remains elevated. This should also improve with CRRT. Alice Stewart MD Nephrology Pager: [phone] * Barbie Pelaez RD - 11/07/2023 11:01 AM EDT Nutrition Progress Note Hayden Russo is a 47 y.o. male with a PMH of inferior STEMI s/p PCI, IDDM2, HTN, HLD, CKD, former smoker. S/p CABGx3. Reason for Assessment: Follow-up, ICU Tube Feeding Nutrition Recommendations: If transitioning to shift or iHD please reconsult for new nutrition recs While on CRRT: Peptamen AF with a goal rate of 75 mL per hour plus 6 scoop(s) protein powder daily - pended This rate is calculated to compensate for unplanned time off feedings due to potential procedures, etc. At goal, this will provide 1500 mL formula, 1950 calories, 150 grams protein, 1218 mL water from formula + 300 mL water from protein powder administration, and 100% of the RDI's for vitamin and minerals. Daily multivitamin while on CRRT VDE score < 12 (= 2) - lower risk for pressor related TF intolerance *Pt is on pressors which may increase risk for gastrointestinal hypoperfusion with enteral feeds. Monitor for increasing abdominal distention, constipation, elevated gastric residuals, or ileus. Monitor BM - optimize regimen with goal of 1 [id number] while on TF Liquid tylenol contains sugar alcohol(s) (sorbitol) that acts as a purgative. If stool output is excessive, consider switching to crushed tablet form. Mg and phos with daily labs Monitor BG - goal of 140-180 Daily weights I was able to discuss plan with provider [facility] [id number] . Current Nutrition Regimen: Active Orders Diet NPO diet (Hold Meds) Frequency: Effective Now Number of Occurrences: Until Specified All Active TF Orders: Nepro with a goal rate of 55 mL per hour This rate is calculated to compensate for unplanned time off feedings due to potential procedures, etc. At goal, this will provide 1100 mL formula, 1980 calories, 89 grams protein, 800 mL water from formula, and 100% of the RDI's for vitamin and minerals. Assessment: Lab Results Component Value Date NA 148 (H) 11/07/2023 NA 138 09/22/2023 K 3.6 11/07/2023 K 4.9 09/22/2023 CL 106 11/07/2023 CL 106 09/22/2023 CO2 19 (L) 11/07/2023 CO2 22 09/22/2023 BUN 97 (H) 11/07/2023 BUN 34 (H) 09/22/2023 CREATININE 6.39 (H) 11/07/2023 CREATININE 2.83 (H) 09/22/2023 ESTGFR 27 (L) 09/22/2023 MAGNESIUM 1.17 (H) 11/07/2023 MAGNESIUM 0.98 06/07/2023 CALCIUM 8.3 (L) 11/07/2023 CALCIUM 9.3 09/22/2023 PHOS 9.1 (CRIT) 11/07/2023 AST 24 10/31/2023 AST 19 09/22/2023 ALT 14 10/31/2023 ALT 18 09/22/2023 ALKPHOS 58 10/31/2023 ALKPHOS 97 09/22/2023 BILITOT 0.3 10/31/2023 BILITOT 0.3 09/22/2023 BILIDIR 0.1 09/22/2023 TRIG 464 11/03/2023 TRIG 405 06/05/2023 HA1C 9.5 (H) 10/31/2023 HA1C 11.2 (H) 06/05/2023 25OHVITD 9 (L) 11/04/2023 IRON 14 (L) 11/04/2023 Lab Results Component Value Date POCGLU 158 11/07/2023 POCGLU 234 (H) 11/06/2023 Patient Lines/Drains/Airways Status Active Nutritional LDAs Name Placement date Placement time Site Days Naso/Oral Tube 11/03/23 1203 small bore weighted ([place]) left nostril 11/03/23 1203 left nostril 4 PIV 10/30/23 0658 18 gauge brachial vein, left 10/30/23 0658 -- 8 PIV 11/03/23 1659 20 gauge basilic vein (medial side of arm), right 11/03/23 1659 -- 4 Percutaneous Central Line 11/05/23 1130 Triple Lumen 12 Fr internal jugular vein, right 11/05/23 1130 -- 2 Rectal Tube 11/07/23 0629 rectal tube with balloon (specify mL) 11/07/23 0629 -- less than 1 Urethral Catheter 11/06/23 1251 100% silicone 10 10 11/06/23 1251 -- 1 Oxygen Therapy / Airway Device: Ventilator Shift Pressure Injury Prevention Occiput: No Injury Thoracic Spine: No Injury Sacral: No Injury Ischial - left: No Injury Ischial - right: No Injury Heel - left: No Injury Heel - right: No Injury Elbow - left: No Injury Elbow - right: No Injury Last Bowel Movement: 11/07/23 Intake/Output Summary (Last 24 hours) at 11/07/2023 1105 Last data filed at 11/07/2023 1000 Gross per 24 hour Intake 4132.23 ml Output 3765 ml Net 367.23 ml Relevant medications: Continuous dexmedeTOMIDine 1.7 mcg/kg/hr (11/07/23 1044) DOPamine 2 mcg/kg/min (11/07/23 1000) nitric oxide tube feeding diet 55 mL/hr at 11/07/23 1000 bicarbonate CRRT with 4 mEq/L K+, 3 mEq/L Ca++ Stopped (11/06/23 0700) potassium phosphate Stopped (11/05/23 1030) calcium gluconate Stopped (11/05/23 1318) NORepinephrine Stopped (11/05/23 1515) furosemide Stopped (11/07/23 0937) fentaNYL 100 mcg/hr (11/07/23 1000) Scheduled QUEtiapine 25 mg Oral Nightly insulin lispro 1-11 Units Subcutaneous Q4H ISAMAR insulin lispro 5 Units Subcutaneous Q4H ISAMAR acetaminophen 1,000 mg Oral Q6H ISAMAR aspirin 81 mg Per NG tube Daily Or aspirin 300 mg Rectal Daily epoetin sha-epbx 10,000 Units Subcutaneous Once per day on Monday ferrous sulfate 300 mg Oral Daily vitamin B Complex-vitamin C-folic Acid 1 tablet Oral Daily ergocalciferoL (vitamin D2) 50,000 Units Per NG tube Weekly AMIOdarone 200 mg Oral Daily heparin (porcine) 7,500 Units Subcutaneous 2 times per day insulin glargine (Lantus;Semglee) (100 unit/mL) subcutaneous injection 50 Units Subcutaneous Q24H piperacillin-tazobactam 3.375 g Intravenous Q8H clopidogreL 75 mg Oral Daily atorvastatin 80 mg Oral QPM chlorhexidine 15 mL Oral BID pantoprazole EC 40 mg Oral Daily Or pantoprazole 40 mg Intravenous Daily senna-docusate 2 tablet Oral Daily shift total and Settings verification Intravenous 2 Times Daily - Shift Total albuteroL 6 puff Inhalation Q4H ISAMAR lidocaine 1 patch Transdermal Q24H PRN glucose 40% oral geL OR dextrose OR glucagon, heparin (porcine), hydrALAZINE, sodium chloride 0.9%, sodium chloride 0.9%, ondansetron, bisacodyL, fentaNYL (PF) OR fentaNYL, fentaNYL (PF) OR fentaNYL, potassium chloride in water OR potassium chloride in water OR potassiumchloride in water, HYDROmorphone OR HYDROmorphone, HYDROmorphone, HYDROmorphone Anthropometrics: Admit Weight: 128.91 kg Estimated body mass index is 42.77 kg/m?? as calculated from the following: Height as of this encounter: 177.8 cm (5' 10). Weight as of this encounter: 135.2 kg (298 lb 1 oz). [place] Body Weight (IBW) (kg): 75.45 Wt Readings from Last 10 Encounters: 11/07/23 135.2 kg (298 lb 1 oz) 09/22/23 123.3 kg (271 lb 14.4 oz) 09/12/23 122.1 kg (269 lb 3.2 oz) 08/04/23 121.2 kg (267 lb 4.8 oz) 06/07/23 118.5 kg (261 lb 3.9 oz) 11/27/18 99.8 kg (220 lb) 10/14/18 99.8 kg (220 lb 0.3 oz) Patient Vitals for the past 168 hrs: Weight 11/07/23 0500 135.2 kg (298 lb 1 oz) 11/06/23 0449 134.1 kg (295 lb 10.2 oz) 11/05/23 0400 122.1 kg (269 lb 2.9 oz) 11/04/23 0400 134.6 kg (296 lb 11.8 oz) 11/03/23 0600 121.5 kg (267 lb 13.7 oz) 11/02/23 0402 133.9 kg (295 lb 3.1 oz) 11/01/23 0200 126.2 kg (278 lb 3.5 oz) Weight Source: Bed Estimated / Assessed Needs: Kcal / K - 1944 Kcal (12 Kcal/Kg - 16 Kcal/Kg) Estimated Protein Needs: 136 g - 166 g (1.8 g/Kg - 2.2 g/Kg IBW) Nutrition intake and intake history / interview: 11/06: Per team, starting CRRT today - updated TF recs. 11/05: TF at goal. Off propofol, TG of 464. Started on CRRT, held today. LBM 11/02. 11/02: Consulted for TF recs. Per team, starting trickle TF today. NPO x 5 days. Nutrition Focused Physical Exam: Not performed Reason NFPE Not Performed: Patient not available at time of assessment. Malnutrition Diagnosis: Not enough data to assess (Sharri et al, JPEN J Parenteral Enteral Nutr. 2011; 36(3): 273-83) Nutrition to continue to follow up while inpatient Thank you, Barbie Pelaez, MS, RD, LD, [facility] Clinical Nutrition * Michelle Pretty, RAMONA - 11/07/2023 9:01 AM EDT Glucose Management Team Inpatient Progress Note HPI Hayden Russo is a 47 y.o. male from [place], [place], with PMH significant for ASCVD-CAD (2019 STEMI w/PCI - RCA stent, then occluded and re-stented 05/2023), CKD (eGFR 33), IDDM2 poorly controlled (A1c 11.2% 05/2023), who was admitted on 10/30/2023 currently being treated for re-occlusion of stents, now s/p 10/29 CABG X3. Original consult completed: 10/31/2023 Patient Interview & Updates BG improved on new TF insulin for TF Nepro 160g at 55mL/hr. BG mostly under 180 overnight. Starting CVVH today, and TF changing to Peptamen AF 112g - starting at 25mL/hr, increasing 10mL/hr Q6hrs with goal 75mL/hr. Objective Temp: [37 ??C (98.6 ??F)-38.8 ??C (101.8 ??F)] Heart Rate: [61-71] Resp: [16-26] BP: (135-146)/(60-62) SpO2: [89 %-97 %] Heart Rate from SpO2: -- Wt Readings from Last 3 Encounters: 11/07/23 135.2 kg (298 lb 1 oz) 09/22/23 123.3 kg (271 lb 14.4 oz) 09/12/23 122.1 kg (269 lb 3.2 oz) Current Regimen from Yesterday Insulin glargine 50u QD at 1800 Lispro for Correction: Custom 1:15 >140 Q4 Lispro for TF: started at 1600 11/05 TUBE FEED ASSOCIATED For Nepro tube feed - 160 grams of carbohydrate per 1000 cc - Goal rate 55 mL/hr HOLD if tube feed not running HOLD if BG less than 80 Based on 1:7 I:C ratio TO COVER THE NEXT 4 HOURS OF TUBE FEEDS 55mL/hr give 5 units every 4 hours If greater than 55 or change in tube feed call for new orders. Monitoring: BG Q4hrs Diet: NPO Relevant Meds: TF (Peptamen Intense VHP - 76g/1000mL, goal rate 55ml/hr); Dopamine in D5% (11/05-present); (Chlorothiazide in D5%(intermittent doses) Prior: 10/29 1811 - D10 w/10u Regular insulin for hyperkalemia; Norepinephrine in D5% 10/29-0003 10/30);Epinephrine in D5%; Milrinone in D5%; chlorothiazide in D5; TDD: 11/05: 94u (50u basal, 15u TF, 29u correction ) - most correction prior to starting TF insulin; 4u correction overnight 11/04: 60u (50u basal, 10u correction) - 9u correction overnight with TF running Recent Glucose Levels Recent Labs 11/07/23 0849 11/06/23 1918 11/05/23 0926 11/05/23 0550 11/05/23 0418 11/05/23 0007 11/04/23 2213 11/04/23 2019 11/04/23 0600 11/04/23 0331 11/04/23 0141 11/03/23 2352 POCGLU 158 234* 198 162 169 182 151 161 129 172 174 122 ASSESSMENT Hayden Russo is a 47 y.o. years old male with PMH significant for IDDM2 (Last A1C of 11.2% 05/2023) who was admitted on 10/30/2023 for re-occlusion of stents, now s/p 10/29 CABG X3. Diabetes poorlycontrolled and complicated by acute illness. Currently variable blood glucose levels while hospitalized requiring adjustment of insulin regimen and DM medications. BG overall much improved overnight with TF insulin coverage - BG mostly <180. Today, he will be starting renal support today (CVVH) and TF formulary changing again. He will need lower insulin doses due to lower carb-amount, so recommendations given for TF insulin. No other changes to insulins. Re commendations given to team and orders pended. RECOMMENDATIONS: Insulin glargine 50u QD at 1800 Lispro for Correction: Custom 1:15 >140 Q4hrs CHANGE Lispro for TF: new formulary and rate TUBE FEED ASSOCIATED For Peptamen AF tube feed - 112 grams of carbohydrate per 1000 cc - Starting 25mL/hr, and titratingup Q6hrs by 10mL, with Goal rate 75mL/hr HOLD if tube feed not running HOLD if BG less than 80 Based on 1:6 I:C ratio TO COVER THE NEXT 4 HOURS OF TUBE FEEDS 25-34 mL/hr give 2 units every 4 hours 35-44 mL/hr give 3 units every 4 hours 45-54 mL/hr give 4 units every 4 hours 55-64 mL/hr give 5 units every 4 hours 65-75 mL/hr give 6 units every 4 hours If greater than 75 or change in tube feed call for new orders. When able to take PO, recommend adding Carb Controlled 60/60/75g diet and Lispro Monitoring: BG Q4hrs Diet: NPO Discharge Planning/intermediate diabetes care: Medications - Outpatient treatment regimen recommendations pending based on the hospital course. Home: These doses need clarification when patient able to communicate. Farxiga 10mg QD - likely restart at discharge. Insulin glargine (Basaglar) pen Humalog 20u TID w/meals No Ozempic since May - unknown reason. Monitoring BG tid ac & hs Follow-up: PCP 50 minutes were spent over the course of the day with this patient encounter including time spent in chart review and relevant lab result review, assessment of and counseling with the patient on diabetes and treatment plan, reviewing all glucose and insulin data, and coordination with the consulting service. Michelle Pretty APRN, DNP, BC-ADM Inpatient Diabetes Management Team Team pager #[phone] * Aby Williamson, RAMONA - 11/07/2023 8:24 AM EDT Cardiac Surgery Progress Note Hayden Russo is a 47 y.o. male with CAD who is 8 Days Post-Op CABGx3. PMH of inferior STEMI s/p PCI, IDDM2, HTN, HLD, CKD, former smoker. 24h Events: Epi switched to dopa at 2 Lasix gtt with bolus and diuril 3.3L out +730 on the day Precedex/fent still agitated at night requiring prn seroquel Febrile recx UA neg, bc pending On zosyn day 6 S: Intubated and sedated, awake following commands O: Temp: [37.3 ??C (99.1 ??F)-38.8 ??C (101.8 ??F)] Heart Rate: [62-71] Resp: [16-26] BP: (172)/(60) SpO2: [89 %-97 %] Heart Rate from SpO2: -- Drips: Dex 1.7 Fent 100 dopa 2 Lasix 20 Tf at goal Vent settings: VC 590 x 10 50% PEEP 10 Sofía at 10 ppm 11/05 0701 - 11/06 0700 In: 4200.8 [I.V.:2168.8] Out: 3465 [Urine:3365] Admit weight: 128.91 kg Current weight: Weight: 135.2 kg (298 lb 1 oz) Physical Exam: General: Lying in bed on ventilator. Appears stated age. NAD. Neuro: Intubated and sedated. PERRL. Opens eyes to voice. Follows commands in all 4 extremities. Lungs: Bilateral mechanical breath sounds present. Heart: RRR, S1S2 diminished, no murmurs, A paced on tele Abdomen: Obese, +bowel sounds, ND Ext: WWP, 2+ edema Incisions: SAMUEL CDI Tubes/Lines/Drains: RIJ HD line, [place], TPW, Todd, DHT, PIV, flexiseal Assessment/Plan: 47 y.o. male 8 Days Post-Op CABGx3 MV CAD s/p CABGx3 RV dysfunction ASA / Plavix Statin Continue dopa will start filter and re-assess One unit blood for hgb 7.9 to assist with filter initiation Levo to keep map >65, sbp >90 Post operative acute hypoxemic respiratory failure Continue sedation with Dex / Fent CT chest 11/01 with bilateral lower lobe collapse Continue tube feeds at goal via DHT Moving bowels, continue flexiseal BAL sent 11/01, final results with rare mixed bacteria c/w normal upper respiratory adrian Continue empiric zosyn x8 days BC pending Continue Sofía for now Continue vent support with PEEP of 10 Scheduled albuterol Post operative atrial fibrillation related to cardiac surgery Amio 200 qd Single episode, will discuss A/C if has further episodes Acute on chronic renal insufficiency Hyperkalemia (resolved) Hyperphosphatemia Hypocalcemia Vit D deficiency Start CVVH Stop lasix gtt continue Dopamine for now Daily BMPs Monitor UOP Nephrology following Avoid PICC placement Vitamin D 50k weekly Age indeterminate right peroneal DVT B/l LE duplex 11/02 with age indeterminate right peroneal DVT No strong indication for A/C at this time Cont SQH for DVT ppx SCDs Acute hypertriglyceridemia While on propofol Tolerating precedex from temperature standpoint, continue Recheck triglycerides if propofol restarted Acute post-op blood loss anemia Anemia of CKD Transfused 1 unit 11/03 and 11/04, 11/06 Continue Epogen 10k 3 times weekly Daily CBC Iron labs c/w chronic anemia HTN Holding home losartan, coreg T2DM Sick Euthyroid state Recent A1c 11.2, repeat 9.5 Lantus 50U daily DM following, appreciate recs, custom q4h correction scale, 5units scheduled No thyroid replacement necessary, repeat labs in 4-6 weeks Dispo: CVCC, full code Discussed with attending surgeon on rounds this morning. ABY WILLIAMSON APRN 11/07/2023 Between the hours of 1800 - 0600 and on the weekends please page [phone]. * Cristina Bran MD - 11/07/2023 6:06 AM EDT Cardiovascular Critical Care Attending Note Hayden Russo 1975 Age: 47 y.o. PCP: Bandar Hahn MD Date of Service: 11/07/2023 Date of Admission: 10/30/2023 Length of Stay Hospital Day 8 days Patient ID: Hayden Russo is a 47 y.o. male with a history of ASCVD presenting with inferior STEMI s/p RCA PCI 2018 with recurrent RCA closures and repeat PCI (most recently July 2023), ischemic cardiomyopathy (LVEF 45%, RV dysfunction), poorly controlled IDDM2, chronic renal insufficiency (baseline creatinine in 2s), BMI 42, HTN, HLD, TUD in remission who is now s/p planned 3vCABG (GREENWOOD-LAD, SVG-OM2, SVG-RPDA) with Dr. Person on 10/30/23 with post-op course complicated by RV failure, cardiogenic shock, severe hypoxic respiratory failure and acute kidney injury on CKD. The patient was seen and examined on critical care rounds. Hayden Russo is a 47 y.o. male with the following active issues: Cardiogenic shock Right ventricular failure, acute on chronic Acute hypoxic respiratory failure ASCVD s/p 3vCABG (GREENWOOD-LAD, SVG-OM2, SVG-RPDA; Dr. Person on 10/30/23) Acute on chronic HFpEF Ischemic Cardiomyopathy Acute renal failure, non-oliguric on CKD4 (baseline creatinine in the 2s) IDDM2, poorly controlled Obesity, Class 3 BMI 42 Distal RLE DVT (peroneal) INTERVAL HISTORY: No acute events Held off on re-attempting CRRT given improved creatinine yesterday and increasing UOP After Diuril and Lasix bolus patient ultimately made UOP 3180mL but remained net positive 625mL forthe last 24 hours Oxygenation remains poor, required increased FiO2 to 50% yesterday afternoon despite maintaining Sofía at 10ppm Transitioned from epinephrine to dopamine yesterday MEDICATIONS: Scheduled Meds: insulin lispro 1-11 Units Subcutaneous Q4H ISAMAR insulin lispro 5 Units Subcutaneous Q4H ISAMAR acetaminophen 1,000 mg Oral Q6H ISAMAR aspirin 81 mg Per NG tube Daily Or aspirin 300 mg Rectal Daily epoetin sah-epbx 10,000 Units Subcutaneous Once per day on Monday ferrous sulfate 300 mg Oral Daily vitamin B Complex-vitamin C-folic Acid 1 tablet Oral Daily ergocalciferoL (vitamin D2) 50,000 Units Per NG tube Weekly AMIOdarone 200 mg Oral Daily heparin (porcine) 7,500 Units Subcutaneous 2 times per day insulin glargine (Lantus;Semglee) (100 unit/mL) subcutaneous injection 50 Units Subcutaneous Q24H piperacillin-tazobactam 3.375 g Intravenous Q8H clopidogreL 75 mg Oral Daily atorvastatin 80 mg Oral QPM chlorhexidine 15 mL Oral BID pantoprazole EC 40 mg Oral Daily Or pantoprazole 40 mg Intravenous Daily senna-docusate 2 tablet Oral Daily shift total and Settings verification Intravenous 2 Times Daily - Shift Total albuteroL 6 puff Inhalation Q4H ISAMAR lidocaine 1 patch Transdermal Q24H Continuous Infusions: DOPamine 2 mcg/kg/min (11/07/23 0529) nitric oxide tube feeding diet 55 mL/hr at 11/07/23 0400 bicarbonate CRRT with 4 mEq/L K+, 3 mEq/L Ca++ Stopped (11/06/23 0700) potassium phosphate Stopped (11/05/23 1030) calcium gluconate Stopped (11/05/23 1318) NORepinephrine Stopped (11/05/23 1515) furosemide 20 mg/hr (11/07/23 0400) dexmedeTOMIDine 1.7 mcg/kg/hr (11/07/23 0400) fentaNYL 100 mcg/hr (11/07/23 0400) EXAM: Last value Range last 24 hrs Temperature Temp: 37.4 ??C (99.3 ??F) Temp: [37.2 ??C (99 ??F)-38.8 ??C (101.8 ??F)] Heart Rate Heart Rate: 62 Heart Rate: [62-80] Blood Pressure BP: 172/60 BP: (172)/(60) Respiratory Rate Resp: 18 Resp: [16-26] SpO2 SpO2: 96 % SpO2: [89 %-97 %] Art BP BP (Arterial Line): 133/57 BP (Arterial Line): (93-148)/(46-64) Weights: Patient Vitals for the past 168 hrs: Weight 11/07/23 0500 135.2 kg (298 lb 1 oz) 11/06/23 0449 134.1 kg (295 lb 10.2 oz) 11/05/23 0400 122.1 kg (269 lb 2.9 oz) 11/04/23 0400 134.6 kg (296 lb 11.8 oz) 11/03/23 0600 121.5 kg (267 lb 13.7 oz) 11/02/23 0402 133.9 kg (295 lb 3.1 oz) 11/01/23 0200 126.2 kg (278 lb 3.5 oz) Gen- Middle aged male, intubated, but rouses on sedation HEENT- Endotracheally intubated CV- Regular, normal rate Pulm- Mechanically ventilated Abd- Obese, soft Ext- Warm, +edema Neuro- Lightly sedated, moves all extremities purposefully, follows commands Psych- Cooperative Skin- Non-diaphoretic Lines- RIJ temp dialysis line, LRA art line, PIVs, Todd, ETT, DHT PERTINENT DIAGNOSTICS: WBC 12.5 (flat) HGB 7.9 <= 8.3 PLT 361 BUN/Cr 97/6.39 <= 83/5.61 <= 75/5.90 Na 148 <= 143 K 3.6 CO2 19 Mg 1.17 Phos 9.1 Serial ABGs reviewed with normal acid/base status and stable oxygenation overnight Glycemic control suboptimal 146-242 in last 24 hours (Ha1c 9.5) Lactate serially normal, most recently 1.[address] from 11/01 personally reviewed with bilateral lower lobe atelectasis, extensive CXR 11/04 personally reviewed with persistent bibasilar opacities, appropriate line/tube positioning Duplex DVT 11/02- Right peroneal vein occlusive DVT, age indeterminate. Left normal. ASSESSMENT, MANAGEMENT, and DECISION MAKING: Hayden Russo is a 47 y.o. male with a history of ASCVD presenting with inferior STEMI s/p RCA PCI 2018 with recurrent RCA closures and repeat PCI (most recently July 2023), ischemic cardiomyopathy (LVEF 45%, RV dysfunction), poorly controlled IDDM2, chronic renal insufficiency (baseline creatinine in 2s), BMI 42, HTN, HLD, TUD in remission who is now s/p planned 3vCABG (GREENWOOD-LAD, SVG-OM2, SVG-RPDA) with Dr. Person on 10/30/23 with post-op course complicated by RV failure, cardiogenic shock, severe hypoxic respiratory failure and acute kidney injury on CKD. Currently stably supported, with significant DONAL on CKD and ongoing hypoxic respiratory failure. Despite aggressive diuresis yesterday remained net positive with rising BUN and creatinine. Will attempt CRRT again today. Borderline Hgb will plan to transfuse 1u pRNCs prior to putting up filter. Respiratory status remains tenuous with ongoing requirement for Sofía and PEEP 10. Neuro- Sedation precedex. Analgesia fent, lido patch, APAP. Goal RASS 0 to -1. Cardiovascular- Goal MAP 65-75. Continue low dose dopamine for heart rate and CO (empiric) Amio po;currently remaining in sinus rhythm. Continue DAPT for now but once on therapeutic AC would hold ASA and continue plavix (note PCI RCA July 2023). Atorva. Pulmonary- Wean Sofía as able, then FiO2. Inhaled therapies. Avoid de-recruitment. FEK- Initiate CRRT for volume management and optimization of metabolic parameters. GI- Enteral TFs. PPI. RBOs. ID- Broad spectrum coverage for possible PNA with pip/tazo Heme- Transfuse 1u pRBCs. SQH, timing for therapeutic AC for afib/DVT as per surgeon. NB distal (low risk) RLE DVT of unclear chronicity. Repeat DVT studies later this week to assess for interval change while off AC. Endo- Insulin gtt => basal/bolus for goal euglycemia. DM management team following. Psych- No acute issues IS THE PATIENT CRITICALLY ILL? Is there a high potential of sudden, clinically significant, or life threatening deterioration? Yes Is there a need for direct personal assessment and management to treat/prevent multiple vital organfailure/deterioration? Yes If this patient is not critically ill, the reason for continued hospitalization is NA. PATIENT IS CRITICALLY ILL WITH THESE DIAGNOSES BEING MANAGED BY Cardiology team providing critical care services ARDS X PA Catheter Hyponatremia X Hypoxemic Resp Failure X Cardiogenic Shock Hypernatremia Pneumonia req Ventilator Acute Myocardial Infarction Hyperkalemia Hypercarbic Resp Failure Subarachnoid Hemorrhage Acute Drug Ingestion / OD Respiratory Acidosis Traumatic Brain Injury X Acute Renal Failure Acute Resp Failure Coma Acute Liver Failure Metabolic Acidosis Stupor Thrombocytopenia Hypotension, Fluids Delirium Neutropenia X Hypotension, Pressors Acute Encephalopathy Hypertensive Emergency Sepsis Ascites Req Treatment Malnutrition Septic Shock with SIRS Coagulopathy Req Treatment Anaphylaxis Active Hemorrhage I personally performed 40 minutes of aggregate critical care time exclusive of procedures and teaching. This includes time spent during direct patient evaluation and reassessment, interpreting diagnostic tests, directing life and/or organ supporting interventions and documentation on the unit. The time documented is independent of the care provided by the Cardiology/Cardiac Surgery attending of record. Cristina Bran MD 11/07/2023 * Rashida Blanca RCP - 11/07/2023 5:34 AM EDT Illness Severity Watcher Respiratory Modalities: O2 Device: VC 590/+10, x15 51 % (8.1 ml/kg) Airway: 8.0 @ 25 Teeth Patient Summary Admitted: 10/30/2023 Age: 47 y.o. Code Status: FULL. HPI: CABG x3, EF about 45% & moderate RV dysfunction PMHx: severe atherosclerotic coronary disease, DM, R Coronary STEMI s/p PCI + stent (found to be occluded and reopened with more stents), HTN, former smoke(quit 2020) Events w/ date: 11/01- increased Fio2 to 100%, CT, Sofía Bronchoscopy and BAL 11/02- Sofía 5ppm- weaned FiO2 to 40% 11/03 Weaned SOFÍA off, got hypotensive and sat went 83% Back to 1ppm. 11/04 Increased SOFÍA to 10ppm for Sat 91% on 100 Fio2. 11/05 - fio2 increased 50% 11/06 abg 7.37/37/84 no parameter changes made overnight. Action List Medications/ACT: Albuterol MDI Q4 Sofía 10 ppm Situational Awareness & Contingency Planning Pt not a Difficult Aw, but a grade 2 view. MD Smith wants pt to be extubated on Day shift when more people available if needs to be re-intubate. Extubate to Bipap. * Meri Clark RT - 11/06/2023 5:57 PM EDT AMV Protocol: Yes SBT Protocol: Yes SBT: Not performed Vent Settings: Ventilator Mode: VC Tidal Volume Set: 590 Resp Rate Set: 15 PEEP Set: 10 FiO2: 51 % Ventilator Measurements: Resp: 20 Vt Exhaled: 569 PIP: 34 MAP: 16.4 Plateau Press: 29 Ve: 10.8 PEEP: 10 cmH20 SpO2: 94 % EtCO2: 32 mmHg Airway: 8.0 @ 25 cm at the Teeth. Skin Integrity: WDL MDI Inhaled Medications: Albuterol Breath Sounds: Coarse/ diminished Secretions: Small white thin Assessment / Events / Plan of the Day: Received patient intubated and mechanically ventilated on VCV 590 x 15 + 10 40%. Sofía was temporarily weaned to 5 but returned to 10. Per ABG, fio2 increased to 50%. No other changes made. Plan: Continue to support patient. Wean as tolerated. RT Rose Mary * Alice Stewart MD - 11/06/2023 3:53 PM EDT NEPHROLOGY PROGRESS NOTE Reason for consult: DONAL, volume overload. Interval History: Patient seen and examined in the ICU. Clinical and laboratory data reviewed. Attempts made to initiate CRRT yesterday, but patient became hemodynamically stable each time, so further efforts aborted for the time being. PE: Intubated and sedated. In upright position in bed. Distant heart sounds. Clear lungs on limited examination. Edema/anasarca is present. Abdomen is firm. I/O last 3 completed shifts: In: 5341.7 [I.V.:2111.8; Blood:350; NG/GT:1871.9; IV Piggyback:768] Out: 3755 [Urine:3755] I/O this shift: In: 1402.8 [I.V.:776.3; NG/GT:376.5; IV Piggyback:50] Out: 595 [Urine:595] Creatinine (mg/dL) Date Value 11/06/2023 5.61 (H) 11/05/2023 5.90 (H) 11/05/2023 5.90 (H) 09/22/2023 2.83 (H) 08/04/2023 2.39 (H) 06/07/2023 2.49 (H) A/R: DONAL - Creatinine stable to slightly improved. Remains very volume overloaded, and despite aggressive diuresis, had a net positive fluid balance yesterday of 1.3L. Even though his urine output is verygood, he has been unable to excrete enough volume to overcome intake. The reason for his intolerance of CRRT is unclear. Could consider placement of [place] for better assessment of his intravascular volume status. Is he pre-load dependent? Less likely a dialyzer reaction. Could consider priming with blood or albumin to see if that helps. Ongoing diuresis at the discretion of Cardiology. Most of hisintake is from IV medications. Could see if tube feeds could be more concentrated to cut down on that as a source of volume. Metabolic labs - Metabolic acidosis is present. This may be exacerbated by IV meds if they are mixed in NS. If feasible, could add oral bicarbonate 1300mg BID. Okay to crush. Phosphorus is very elevated; better today, but still high. We may be limited in what we can do about that while he is on tube feeds. If possible, could try to decrease phos in tube feeds. If at some point he is able to tolerate CRRT, this will bring the phos down. Alice Stewart MD Nephrology Pager: [phone] * Michelle Pretty, FARM EQUIPMENT OPERATOR - 11/06/2023 11:21 AM EDT Glucose Management Team Inpatient Progress Note HPI Hayden Russo is a 47 y.o. male from [place], [place], with PMH significant for ASCVD-CAD (2019 STEMI w/PCI - RCA stent, then occluded and re-stented 05/2023), CKD (eGFR 33), IDDM2 poorly controlled (A1c 11.2% 05/2023), who was admitted on 10/30/2023 currently being treated for re-occlusion of stents, now s/p 10/29 CABG X3. Original consult completed: 10/31/2023 Patient Interview & Updates Ambrocio had TF Peptamen Intense VHP 76g started 11/02, at goal 55mL/hr since 11/04 0600, with trending up BG since meeting goal rate, including ~3u Q4 overnight. This afternoon TF changing to Nepro, which is 160g (double the glucose) at the same rate 55mL/hr. Objective Temp: [37.1 ??C (98.8 ??F)-38.1 ??C (100.6 ??F)] Heart Rate: [80] Resp: [16-23] BP: (128-172)/(60-70) SpO2: [88 %-98 %] Heart Rate from SpO2: -- Wt Readings from Last 3 Encounters: 11/06/23 134.1 kg (295 lb 10.2 oz) 09/22/23 123.3 kg (271 lb 14.4 oz) 09/12/23 122.1 kg (269 lb 3.2 oz) Current Regimen from Yesterday Insulin glargine 50u QD at 1800 (home dose) Lispro for Correction: Moderate 1:20 >140 Q4hrs Lispro for TF: None When able to take PO, recommend adding Carb Controlled 60/60/75g diet and Lispro Monitoring: BG Q4hrs Diet: NPO Relevant Meds: TF (Peptamen Intense VHP - 76g/1000mL, goal rate 55ml/hr); Dopamine in D5% (11/05-present); Chlorothiazide in D5%(intermittent doses) Prior: 10/29 1811 - D10 w/10u Regular insulin for hyperkalemia; Norepinephrine in D5% 10/29-0003 10/30);Epinephrine in D5%; Milrinone in D5%; chlorothiazide in D5; TDD: 11/04: 60u (50u glargine, 10u correction) - 9u correction overnight with TF running Recent Glucose Levels Recent Labs 11/05/23 0926 11/05/23 0550 11/05/23 0418 11/05/23 0007 11/04/23 2213 11/04/23 2019 11/04/23 0600 11/04/23 0331 11/04/23 0141 11/03/23 2352 11/03/23 2310 11/03/23 2233 POCGLU 198 162 169 182 151 161 129 172 174 122 128 133 ASSESSMENT Hayden Russo is a 47 y.o. years old male with PMH significant for IDDM2 (Last A1C of 11.2% 05/2023) who was admitted on 10/30/2023 for re-occlusion of stents, now s/p 10/29 CABG X3. Diabetes poorlycontrolled and complicated by acute illness. Currently variable blood glucose levels while hospitalized requiring adjustment of insulin regimen and DM medications. BG have improved off drip with basal insulin coverage. TF has been titrated up to goal 55mL/hr, andBG are now frequently over 180. He continues to have some dextrose exposure from drips (currently Dopamine) with likely some ongoing stress-related hyperglycemia. TF are also changing to double the glucose content, Nepro 160g this afternoon. Two options for improved glucose control - adding TF insulin Q4 hrs to prevent BG spikes vs increasing correction dose to 1:15 >140 to bring BG under 180 more consistently. With the new increase in TF insulin, I recommend starting TF insulin as well as the increased correction dose. Recommendations made to team as below. RECOMMENDATIONS: Insulin glargine 50u QD at 1800 Lispro for Correction: Moderate 1:20 >140 Q4hrs Recommend increase to 1:15 >140 Q4 if BG continue over 180 without TF insulin coverage Lispro for TF: None - recommend starting TF insulin coverage Q4 scheduled. TUBE FEED ASSOCIATED For Nepro tube feed - 160 grams of carbohydrate per 1000 cc - Goal rate 55 mL/hr HOLD if tube feed not running HOLD if BG less than 80 Based on 1:7 I:C ratio TO COVER THE NEXT 4 HOURS OF TUBE FEEDS 55mL/hr give 5 units every 4 hours If greater than 55 or change in tube feed call for new orders. When able to take PO, recommend adding Carb Controlled 60/60/75g diet and Lispro Monitoring: BG Q4hrs Diet: NPO Discharge Planning/intermediate diabetes care: Medications - Outpatient treatment regimen recommendations pending based on the hospital course. Home: These doses need clarification when patient able to communicate. Farxiga 10mg QD - likely restart at discharge. Insulin glargine (Basaglar) pen Humalog 20u TID w/meals No Ozempic since May - unknown reason. Monitoring BG tid ac & hs Follow-up: PCP 50 minutes were spent over the course of the day with this patient encounter including time spent in chart review and relevant lab result review, assessment of and counseling with the patient on diabetes and treatment plan, reviewing all glucose and insulin data, and coordination with the consulting service. Michelle Pretty APRN, DNP, -[facility] Inpatient Diabetes Management Team Team pager #[phone] * Barbie Pelaez, RD - 11/06/2023 9:26 AM EDT Nutrition Progress Note Hayden Russo is a 47 y.o. male with a PMH of inferior STEMI s/p PCI, IDDM2, HTN, HLD, CKD, former smoker. S/p CABGx3. Reason for Assessment: ICU Tube Feeding Nutrition Recommendations: Change TF to: Nepro with a goal rate of 55 mL per hour - pended This rate is calculated to compensate for unplanned time off feedings due to potential procedures, etc. At goal, this will provide 1100 mL formula, 1980 calories, 89 grams protein, 800 mL water from formula, and 100% of the RDI's for vitamin and minerals. VDE score < 12 (= 2) - lower risk for pressor related TF intolerance *Pt is on pressors which may increase risk for gastrointestinal hypoperfusion with enteral feeds. Monitor for increasing abdominal distention, constipation, elevated gastric residuals, or ileus. Mg and phos with daily labs Monitor BM - optimize regimen with goal of 1 [id number] while on TF (LBM 11/02) Monitor BG - goal of 140-180 Daily weights I was able to discuss plan with provider [facility] [id number] . Current Nutrition Regimen: Active Orders Diet NPO diet (Hold Meds) Frequency: Effective Now Number of Occurrences: Until Specified All Active TF Orders: Peptamen Intense VHP with a goal rate of 55 mL per hour This rate is calculated to compensate for unplanned time off feedings due to potential procedures, etc. At goal, this will provide 1100 mL formula, 1100 calories, 101 grams protein, 924 mL water from formula, and 73% of the RDI's for vitamin and minerals. Average tube feeding provision over past 3 days; 611mL vs daily goal volume of 1100mL formula (56% of goal) Tolerance or barriers to meeting needs: advancing to goal Assessment: Lab Results Component Value Date NA 143 11/06/2023 NA 138 09/22/2023 K 4.3 11/06/2023 K 4.9 09/22/2023 CL 105 11/06/2023 CL 106 09/22/2023 CO2 18 (L) 11/06/2023 CO2 22 09/22/2023 BUN 83 (H) 11/06/2023 BUN 34 (H) 09/22/2023 CREATININE 5.61 (H) 11/06/2023 CREATININE 2.83 (H) 09/22/2023 ESTGFR 27 (L) 09/22/2023 MAGNESIUM 1.02 11/06/2023 MAGNESIUM 0.98 06/07/2023 CALCIUM 7.6 (L) 11/06/2023 CALCIUM 9.3 09/22/2023 PHOS 9.0 (H) 11/06/2023 AST 24 10/31/2023 AST 19 09/22/2023 ALT 14 10/31/2023 ALT 18 09/22/2023 ALKPHOS 58 10/31/2023 ALKPHOS 97 09/22/2023 BILITOT 0.3 10/31/2023 BILITOT 0.3 09/22/2023 BILIDIR 0.1 09/22/2023 TRIG 464 11/03/2023 TRIG 405 06/05/2023 HA1C 9.5 (H) 10/31/2023 HA1C 11.2 (H) 06/05/2023 25OHVITD 9 (L) 11/04/2023 IRON 14 (L) 11/04/2023 No results found for: POCGLU Patient Lines/Drains/Airways Status Active Nutritional LDAs Name Placement date Placement time Site Days Naso/Oral Tube 11/03/23 1203 small bore weighted ([place]) left nostril 11/03/23 1203 left nostril 3 PIV 10/30/23 0658 18 gauge brachial vein, left 10/30/23 0658 -- 7 PIV 11/03/23 1659 20 gauge basilic vein (medial side of arm), right 11/03/23 1659 -- 3 Percutaneous Central Line 11/05/23 1130 Triple Lumen 12 Fr internal jugular vein, right 11/05/23 1130 -- 1 Urethral Catheter 10/30/23 0750 latex;hydrophilic coated 14 5 10 10/30/23 0750 -- 7 Oxygen Therapy / Airway Device: Ventilator Shift Pressure Injury Prevention Occiput: No Injury Thoracic Spine: No Injury Sacral: No Injury Ischial - left: No Injury Ischial - right: No Injury Heel - left: No Injury Heel - right: No Injury Elbow - left: No Injury Elbow - right: No Injury Last Bowel Movement: 11/03/23 Intake/Output Summary (Last 24 hours) at 11/06/2023 09 Last data filed at 11/06/2023 08 Gross per 24 hour Intake 3994.76 ml Output 2930 ml Net 1064.76 ml Relevant medications: Continuous tube feeding diet 55 mL/hr at 11/06/23 08 DOPamine 2 mcg/kg/min (11/06/23 0839) nitric oxide bicarbonate CRRT with 4 mEq/L K+, 3 mEq/L Ca++ Stopped (11/06/23 0700) potassium phosphate Stopped (11/05/23 1030) calcium gluconate Stopped (11/05/23 1318) NORepinephrine Stopped (11/05/23 1515) furosemide 20 mg/hr (11/06/23 08) dexmedeTOMIDine 1.7 mcg/kg/hr (11/06/23 08) fentaNYL 100 mcg/hr (11/06/23 08) Scheduled insulin lispro 1-11 Units Subcutaneous Q4H ISAMAR acetaminophen 1,000 mg Oral Q6H ISAMAR aspirin 81 mg Per NG tube Daily Or aspirin 300 mg Rectal Daily epoetin sha-epbx 10,000 Units Subcutaneous Once per day on Monday ferrous sulfate 300 mg Oral Daily vitamin B Complex-vitamin C-folic Acid 1 tablet Oral Daily ergocalciferoL (vitamin D2) 50,000 Units Per NG tube Weekly AMIOdarone 200 mg Oral Daily heparin (porcine) 7,500 Units Subcutaneous 2 times per day insulin glargine (Lantus;Semglee) (100 unit/mL) subcutaneous injection 50 Units Subcutaneous Q24H piperacillin-tazobactam 3.375 g Intravenous Q8H clopidogreL 75 mg Oral Daily atorvastatin 80 mg Oral QPM chlorhexidine 15 mL Oral BID pantoprazole EC 40 mg Oral Daily Or pantoprazole 40 mg Intravenous Daily senna-docusate 2 tablet Oral Daily shift total and Settings verification Intravenous 2 Times Daily - Shift Total albuteroL 6 puff Inhalation Q4H ISAMAR lidocaine 1 patch Transdermal Q24H PRN glucose 40% oral geL OR dextrose OR glucagon, heparin (porcine), hydrALAZINE, sodium chloride 0.9%, sodium chloride 0.9%, ondansetron, bisacodyL, fentaNYL (PF) OR fentaNYL, fentaNYL (PF) OR fentaNYL, potassium chloride in water OR potassium chloride in water OR potassiumchloride in water, HYDROmorphone OR HYDROmorphone, HYDROmorphone, HYDROmorphone Anthropometrics: Admit Weight: 128.91 kg Estimated body mass index is 42.42 kg/m?? as calculated from the following: Height as of this encounter: 177.8 cm (5' 10). Weight as of this encounter: 134.1 kg (295 lb 10.2 oz). [place] Body Weight (IBW) (kg): 75.45 Wt Readings from Last 10 Encounters: 11/06/23 134.1 kg (295 lb 10.2 oz) 09/22/23 123.3 kg (271 lb 14.4 oz) 09/12/23 122.1 kg (269 lb 3.2 oz) 08/04/23 121.2 kg (267 lb 4.8 oz) 06/07/23 118.5 kg (261 lb 3.9 oz) 11/27/18 99.8 kg (220 lb) 10/14/18 99.8 kg (220 lb 0.3 oz) Patient Vitals for the past 168 hrs: Weight 11/06/23 0449 134.1 kg (295 lb 10.2 oz) 11/05/23 0400 122.1 kg (269 lb 2.9 oz) 11/04/23 0400 134.6 kg (296 lb 11.8 oz) 11/03/23 0600 121.5 kg (267 lb 13.7 oz) 11/02/23 0402 133.9 kg (295 lb 3.1 oz) 11/01/23 0200 126.2 kg (278 lb 3.5 oz) 10/31/23 0500 (!) 137 kg (302 lb) Weight Source: Bed Estimated / Assessed Needs: Kcal / K - 1944 Kcal (12 Kcal/Kg - 16 Kcal/Kg) Estimated Protein Needs: 136 g - 151 g (1.8 g/Kg - 2.0 g/Kg IBW) Nutrition intake and intake history / interview: 11/05: TF at goal. Off propofol, TG of 464. Started on CRRT, held today. LBM 11/02. 11/02: Consulted for TF recs. Per team, starting trickle TF today. NPO x 5 days. Nutrition Focused Physical Exam: Not performed Reason NFPE Not Performed: Patient not available at time of assessment. Malnutrition Diagnosis: Not enough data to assess (Trini, JPESTEFANIA J Parenteral Enteral Nutr. 2011; 36(3): 273-83) Nutrition to continue to follow up while inpatient Thank you, Barbie Pelaez, MS, RD, LD, [facility] Clinical Nutrition * Cristina Bran MD - 11/06/2023 8:10 AM EDT Cardiovascular Critical Care Attending Note Hayden Russo 1975 Age: 47 y.o. PCP: Bandar Hahn MD Date of Service: 11/06/2023 Date of Admission: 10/30/2023 Length of Stay Hospital Day 7 days Patient ID: Hayden Russo is a 47 y.o. male with a history of ASCVD presenting with inferior STEMI s/p RCA PCI 2018 with recurrent RCA closures and repeat PCI (most recently July 2023), ischemic cardiomyopathy (LVEF 45%, RV dysfunction), poorly controlled IDDM2, chronic renal insufficiency (baseline creatinine in 2s), BMI 42, HTN, HLD, TUD in remission who is now s/p planned 3vCABG (GREENWOOD-LAD, SVG-OM2, SVG-RPDA) with Dr. Person on 10/30/23 with post-op course complicated by RV failure, cardiogenic shock, severe hypoxic respiratory failure and acute kidney injury on CKD. The patient was seen and examined on critical care rounds. Hayden Russo is a 47 y.o. male with the following active issues: Cardiogenic shock Right ventricular failure, acute on chronic Acute hypoxic respiratory failure ASCVD s/p 3vCABG (GREENWOOD-LAD, SVG-OM2, SVG-RPDA; Dr. Person on 10/30/23) Acute on chronic HFpEF Ischemic Cardiomyopathy Acute renal failure, non-oliguric on CKD4 (baseline creatinine in the 2s) IDDM2, poorly controlled Obesity, Class 3 BMI 42 Distal RLE DVT (peroneal) INTERVAL HISTORY: CRRT line placed- multiple attempts to initiate CRRT under various conditions all of which the patient tolerated very poorly hemodynamically. Ultimately UOP increased with diuril UOP 705mL during day shift, 2025mL during night after Diuril. Total UOP 2730, net +1.3L Started on epinephrine empirically for hypotension associated with CRRT and for empiric BiV support De-recruited after laying flat for CRRT trial and ended up on FiO2 100% with Sofía back up to 10. Subsequently able to be progressively weaned overnight and now back to 40% FiO2 and Sofía at 5 Received 1u pRBC MEDICATIONS: Scheduled Meds: bisacodyL 10 mg Rectal Once insulin lispro 1-6 Units Subcutaneous Q4H ISAMAR acetaminophen 1,000 mg Oral Q6H ISAMAR aspirin 81 mg Per NG tube Daily Or aspirin 300 mg Rectal Daily epoetin sha-epbx 10,000 Units Subcutaneous Once per day on Monday ferrous sulfate 300 mg Oral Daily vitamin B Complex-vitamin C-folic Acid 1 tablet Oral Daily ergocalciferoL (vitamin D2) 50,000 Units Per NG tube Weekly AMIOdarone 200 mg Oral Daily heparin (porcine) 7,500 Units Subcutaneous 2 times per day insulin glargine (Lantus;Semglee) (100 unit/mL) subcutaneous injection 50 Units Subcutaneous Q24H piperacillin-tazobactam 3.375 g Intravenous Q8H clopidogreL 75 mg Oral Daily atorvastatin 80 mg Oral QPM chlorhexidine 15 mL Oral BID pantoprazole EC 40 mg Oral Daily Or pantoprazole 40 mg Intravenous Daily senna-docusate 2 tablet Oral Daily shift total and Settings verification Intravenous 2 Times Daily - Shift Total albuteroL 6 puff Inhalation Q4H ISAMAR lidocaine 1 patch Transdermal Q24H Continuous Infusions: nitric oxide tube feeding diet 1,100 mL (11/06/23 0742) DOPamine bicarbonate CRRT with 4 mEq/L K+, 3 mEq/L Ca++ 0 mL/hr at 11/05/23 1900 potassium phosphate Stopped (11/05/23 1030) calcium gluconate Stopped (11/05/23 1318) NORepinephrine Stopped (11/05/23 1515) furosemide 20 mg/hr (11/06/23 0600) dexmedeTOMIDine 1.7 mcg/kg/hr (11/06/23 06) fentaNYL 100 mcg/hr (11/06/23 06) EXAM: Last value Range last 24 hrs Temperature Temp: 37.5 ??C (99.5 ??F) Temp: [37.1 ??C (98.8 ??F)-38.1 ??C (100.6 ??F)] Heart Rate Heart Rate: 80 Heart Rate: [80] Blood Pressure BP: 159/66 BP: (128-159)/(63-70) Respiratory Rate Resp: 23 Resp: [16-23] SpO2 SpO2: 95 % SpO2: [88 %-98 %] Art BP BP (Arterial Line): 142/63 BP (Arterial Line): (61-158)/(39-75) Weights: Patient Vitals for the past 168 hrs: Weight 11/06/23 0449 134.1 kg (295 lb 10.2 oz) 11/05/23 0400 122.1 kg (269 lb 2.9 oz) 11/04/23 0400 134.6 kg (296 lb 11.8 oz) 11/03/23 0600 121.5 kg (267 lb 13.7 oz) 11/02/23 0402 133.9 kg (295 lb 3.1 oz) 11/01/23 0200 126.2 kg (278 lb 3.5 oz) 10/31/23 0500 (!) 137 kg (302 lb) Gen- Middle aged male, intubated, but rouses on sedation HEENT- Endotracheally intubated CV- Regular, normal rate Pulm- Mechanically ventilated Abd- Obese, soft Ext- Warm, +edema Neuro- Lightly sedated, moves all extremities purposefully Psych- Unable to assess, passively cooperative Skin- Non-diaphoretic Lines- RIJ temp dialysis line, LRA art line, PIVs, Todd, ETT, DHT PERTINENT DIAGNOSTICS: WBC 13.0 (flat) HGB 8.3 <= 7.3 (after 1 u pRBC) PLT 300 BUN/Cr 83/5.61 <= 75/5.90 Na 143 K 3.6 CO2 18 Mg 1.02 Phos 9.0 Serial ABGs reviewed with normal acid/base status and improving oxygenation from yesterday Glycemic control acutely adequate 151-199 in last 24 hours (Ha1c 9.5) Lactate serially normal, most recently 1.[address] from 11/01 personally reviewed with bilateral lower lobe atelectasis, extensive CXR 11/04 personally reviewed with persistent bibasilar opacities, appropriate line/tube positioning Duplex DVT 11/02- Right peroneal vein occlusive DVT, age indeterminate. Left normal. ASSESSMENT, MANAGEMENT, and DECISION MAKING: Hayden Russo is a 47 y.o. male with a history of ASCVD presenting with inferior STEMI s/p RCA PCI 2018 with recurrent RCA closures and repeat PCI (most recently July 2023), ischemic cardiomyopathy (LVEF 45%, RV dysfunction), poorly controlled IDDM2, chronic renal insufficiency (baseline creatinine in 2s), BMI 42, HTN, HLD, TUD in remission who is now s/p planned 3vCABG (GREENWOOD-LAD, SVG-OM2, SVG-RPDA) with Dr. Person on 10/30/23 with post-op course complicated by RV failure, cardiogenic shock, severe hypoxic respiratory failure and acute kidney injury on CKD. Currently stably supported, with significant DONAL on CKD although managing to hold CRRT with aggressive diuresis. Respiratory status remains tenuous with ongoing requirement for Sofía and PEEP 10. Neuro- Sedation precedex. Analgesia fent, lido patch, APAP. Goal RASS 0 to -1. Cardiovascular- Goal MAP 65-75. DC epinephrine and trial low dose dopamine for heart rate and CO (empiric) Amio po; currently remaining in sinus rhythm. Continue DAPT for now but once on therapeutic AC would hold ASA and continue plavix (note PCI RCA July 2023). Atorva. Pulmonary- Wean Sofía as able, then FiO2. Inhaled therapies. Avoid de-recruitment. FEK- Continue lasix gtt. Repeat Diuril 500 today if needed to maintain adequate UOP. Goal net even to slightly negative. No acute indication for CRRT while acid/base status and electrolytes stable and non-oliguric. At risk for needing this though. GI- Enteral TFs. PPI. RBOs. ID- Broad spectrum coverage for possible PNA with pip/tazo + vanc Heme- SQH, timing for therapeutic AC for afib/DVT as per surgeon. NB distal (low risk) RLE DVT of unclear chronicity. Repeat DVT studies later this week to assess for interval change while off AC Endo- Insulin gtt => basal/bolus for goal euglycemia Psych- No acute issues IS THE PATIENT CRITICALLY ILL? Is there a high potential of sudden, clinically significant, or life threatening deterioration? Yes Is there a need for direct personal assessment and management to treat/prevent multiple vital organfailure/deterioration? Yes If this patient is not critically ill, the reason for continued hospitalization is NA. PATIENT IS CRITICALLY ILL WITH THESE DIAGNOSES BEING MANAGED BY Cardiology team providing critical care services ARDS X PA Catheter Hyponatremia X Hypoxemic Resp Failure X Cardiogenic Shock Hypernatremia Pneumonia req Ventilator Acute Myocardial Infarction Hyperkalemia Hypercarbic Resp Failure Subarachnoid Hemorrhage Acute Drug Ingestion / OD Respiratory Acidosis Traumatic Brain Injury X Acute Renal Failure Acute Resp Failure Coma Acute Liver Failure Metabolic Acidosis Stupor Thrombocytopenia Hypotension, Fluids Delirium Neutropenia X Hypotension, Pressors Acute Encephalopathy Hypertensive Emergency Sepsis Ascites Req Treatment Malnutrition Septic Shock with SIRS Coagulopathy Req Treatment Anaphylaxis Active Hemorrhage I personally performed 35 minutes of aggregate critical care time exclusive of procedures and teaching. This includes time spent during direct patient evaluation and reassessment, interpreting diagnostic tests, directing life and/or organ supporting interventions and documentation on the unit. The time documented is independent of the care provided by the Cardiology/Cardiac Surgery attending of record. Cristina Bran MD 11/06/2023 * He Styles PA - 11/06/2023 7:02 AM EDT Cardiac Surgery Progress Note Hayden Russo is a 47 y.o. male with CAD who is 7 Days Post-Op CABGx3. PMH of inferior STEMI s/p PCI, IDDM2, HTN, HLD, CKD, former smoker. 24h Events: Renal rec starting CVVH, new RIJ HD line placed, 1 unit of pRBC given for hgb 7.3, pt hypotensive x2 upon attempted initiation of circuit despite blood, attempted transfusion of NS bolus, and pre-medicating with levo Desaturation as well, fio2 up to 100%, Sofía increased to 10 ppm Bedside TTE showed unchanged RV - moderately down, started Epi at 2 Decided to hold off on CVVH given hemodynamic instability with initiation, lasix drip restarted andsingle dose of diuril given Increased arousal and agitation throughout the day and into the night causing vent dyssynchrony, precedex increased Improvement in P/F ratio with agitation, Fio2 and Sofía weaned S: Intubated and sedated O: Temp: [37.1 ??C (98.8 ??F)-38.1 ??C (100.6 ??F)] Heart Rate: [80] Resp: [16-23] BP: (128-159)/(63-70) SpO2: [88 %-98 %] Heart Rate from SpO2: -- Drips: Dex 1.7 Fent 100 Epi 2 Lasix 20 Tube feeds on hold since 314 Vent settings: VC 590 x 15 40% PEEP 10 Sofía at 5 ppm 11/04 0701 - 11/05 0700 In: 4020.3 [I.V.:1611.9] Out: 2730 [Urine:2730] Admit weight: 128.91 kg Current weight: Weight: 134.1 kg (295 lb 10.2 oz) Physical Exam: General: Lying in bed on ventilator. Appears stated age. NAD. Neuro: Intubated and sedated. PERRL. Opens eyes to voice. Follows commands in all 4 extremities. Lungs: Bilateral mechanical breath sounds present. Heart: RRR, S1S2 diminished, no murmurs, A paced on tele Abdomen: Obese, +bowel sounds, ND Ext: WWP, 2+ edema Incisions: SAMUEL CDI Tubes/Lines/Drains: RIJ HD line, [place], TPW, Todd, DHT, PIV Assessment/Plan: 47 y.o. male 7 Days Post-Op CABGx3 MV CAD s/p CABGx3 RV dysfunction ASA / Plavix Statin Stop Epi, start low dose Dopamine Levo to keep map >65, sbp >90 Post operative acute hypoxemic respiratory failure Continue sedation with Dex / Fent CT chest 11/01 with bilateral lower lobe collapse Continue tube feeds at goal via [facility] Give suppository BAL sent 11/01, final results with rare mixed bacteria c/w normal upper respiratory adrian Continue empiric zosyn x8 days Continue Sofía wean, possible extubation tomorrow to NIV vs HF with Sofía bleed in if continues to progress, goal pao2 >65, goal spo2>92 Continue vent support with PEEP of 10 Scheduled albuterol Post operative atrial fibrillation related to cardiac surgery Amio 200 qd Single episode, will discuss A/C if has further episodes Acute on chronic renal insufficiency Hyperkalemia (resolved) Hyperphosphatemia Hypocalcemia Vit D deficiency Hold off on CVVH, UOP increasing and Cr down-trending Continue lasix drip Start low dose Dopamine Daily BMPs Monitor UOP Nephrology following Avoid PICC placement Vitamin D 50k weekly Age indeterminate right peroneal DVT B/l LE duplex 11/02 with age indeterminate right peroneal DVT No strong indication for A/C at this time Cont SQH for DVT ppx SCDs Acute hypertriglyceridemia While on propofol Tolerating precedex from temperature standpoint, continue Recheck triglycerides if propofol restarted Acute post-op blood loss anemia Anemia of CKD Transfused 1 unit 11/03 and 11/04 Continue Epogen 10k 3 times weekly Daily CBC Iron labs c/w chronic anemia HTN Holding home losartan, coreg T2DM Sick Euthyroid state Recent A1c 11.2, repeat 9.5 Lantus 50U daily DM following, appreciate recs, start moderate q4h correction scale, no scheduled TF insulin at thistime per Endo No thyroid replacement necessary, repeat labs in 4-6 weeks Dispo: CVCC, full code Discussed with attending surgeon on rounds this morning. GLENIS MCGOWAN 11/06/2023 Between the hours of 1800 - 0600 and on the weekends please page [phone]. * Bandar Sánchez RCP - 11/06/2023 2:57 AM EDT Hayden Russo is a 47 y.o. male with CAD who is Post-Op CABGx3. PMH of inferior STEMI s/p PCI, IDDM2, HTN, HLD, CKD, former smoker. AMV Protocol: Yes SBT Protocol: No Vent Settings: Ventilator Mode: VC Tidal Volume Set: 590 Resp Rate Set: 15 PEEP Set: 10 FiO2: 40 % Ventilator Measurements: Resp: 23 Vt Exhaled: 577 PIP: 36 MAP: 17.3 Plateau Press: 29 Ve: 10.6 PEEP: 10 cmH20 SpO2: 95 % EtCO2: 30 mmHg Airway: 8.0 @ 25cm at the Teeth. Skin Integrity: WDL MDI Inhaled Medications: Albuterol Breath Sounds: Clear Secretions: Mod white thick. Assessment / Events / Plan of the Day: Pt received on MV/AC and tolerating this passively. Pt is onCRRT as well. Pt had an increase in settings and SOFÍA from 1 to 10PPM over the day secondary to refractory hypoxemia. Pt has improved through the night able to wean fio2 from a max of 80% this shift to 40%. SOFÍA currently [id number] Pt gets MDI/Albuterol Q4 hours 6puffs Bandar Sánchez RCP * Mamie Mckeon RCP - 11/05/2023 5:03 PM EDT AMV Protocol: Yes SBT Protocol: No Vent Settings: Ventilator Mode: VC Tidal Volume Set: 590 Resp Rate Set: 15 PEEP Set: 10 FiO2: 100 % Ventilator Measurements: Resp: 22 Vt Exhaled: 562 PIP: 30 MAP: 15.7 Plateau Press: 28 Ve: 10.9 PEEP: 10 cmH20 SpO2: 95 % EtCO2: 33 mmHg Airway: 7.5 @ 24 cm at the Teeth. Skin Integrity: WDL MDI Inhaled Medications: Albuterol Breath Sounds: Clear Secretions: Mod white thick. Assessment / Events / Plan of the Day: Pt received on the above VCV and SOFÍA at 1ppm.This afternoon pt started coughing and desat 86%. Sx'd for lg white thick secretions and increased O2 to 75%. Laterpt desat again with a RN care and increased O2 to 100%. SOFÍA increased to 5ppm. 1600 ABG 7.38/34/103on 100% and SOFÍA at 5ppm. Increased SOFÍA to 10ppm. Will continue to monitor closely. Mamie Mckeon RCP * He Styles PA - 11/05/2023 12:26 PM EDT Cardiac Surgery Progress Note Hayden Russo is a 47 y.o. male with CAD who is 6 Days Post-Op CABGx3. PMH of inferior STEMI s/p PCI, IDDM2, HTN, HLD, CKD, former smoker. 24h Events: Triglycerides 464 on prop, transitioned to precedex with good effect, no fever, fentanyl increased overnight for pain [place] removed Sofía weaned, failed to come off x2 with desat to mid 80s despite increased fio2 to 60% the second time, Sofía remains at 1 ppm TFs advancing to goal Renal consulted, lab work and urine studies obtained, net neg 200cc / 24h on lasix drip at 20, no diuril given, Cr continues to climb, phos still elevated Stopped coumadin, resumed Aspirin 1 unit of pRBC given for hgb 6.7, 7.3 this am Started Epo and iron BAL normal mixed adrian, zosyn continues, WBC flat, afebrile S: Intubated and sedated O: Temp: [37.1 ??C (98.8 ??F)-37.8 ??C (100 ??F)] Heart Rate: [80] Resp: [16-27] BP: (128)/(63) SpO2: [84 %-100 %] Heart Rate from SpO2: -- Drips: Dex 0.8 Fent 100 Levo 2 overnight, currently OFF Lasix 20 Insulin OFF Tube feeds at 50/hr Vent settings: VC 590 x 15 40% PEEP 10 Sofía at 1 ppm 11/03 0701 - 11/04 0700 In: 2030.3 [I.V.:1004.8] Out: 2224 [Urine:2224] Admit weight: 128.91 kg Current weight: Weight: 122.1 kg (269 lb 2.9 oz) Physical Exam: General: Lying in bed on ventilator. Appears stated age. NAD. Neuro: Intubated and sedated. PERRL. Opens eyes to voice. Follows commands in all 4 extremities. Lungs: Bilateral mechanical breath sounds present. Heart: RRR, S1S2 diminished, no murmurs, A paced on tele Abdomen: Obese, +bowel sounds, ND Ext: WWP, 2+ edema Incisions: [place] CDI Tubes/Lines/Drains: RIJ, [place], TPW, Todd, DHT, PIV Assessment/Plan: 47 y.o. male 6 Days Post-Op CABGx3 MV CAD s/p CABGx3 RV dysfunction ASA / Plavix Statin Inotropes weaned off, CI remains >2.2, [place] removed 11/03 Levo to keep map >65, sbp >90 Post operative acute hypoxemic respiratory failure Continue sedation with Dex / Fent CT chest 11/01 with bilateral lower lobe collapse Advance tube feeds to goal via DHT, hold at MN for possible extubation tomorrow BAL sent 11/01, final results with rare mixed bacteria c/w normal upper respiratory adrian Continue empiric zosyn x8 days Continue Sofía at 1ppm, will plan for possible extubation tomorrow to NIV vs HF with Sofía bleed in, goal pao2 >65, goal spo2>92 Continue vent support with PEEP of 10 Scheduled albuterol Post operative atrial fibrillation related to cardiac surgery Amio 200 qd Single episode, will discuss A/C if has further episodes Acute on chronic renal insufficiency Hyperkalemia (resolved) Hyperphosphatemia Hypocalcemia Vit D deficiency Start CVVH, RIJ HD line placed, old line removed, Stop lasix drip Daily BMPs Monitor UOP Nephrology following Avoid PICC placement Vitamin D 50k weekly Age indeterminate right peroneal DVT B/l LE duplex 11/02 with age indeterminate right peroneal DVT Stop Coumadin Cont SQH for DVT ppx SCDs Acute hypertriglyceridemia On propofol Febrile with precedex, will retry today given triglycerides of 464, if febrile will stop and discuss alternative with home sales consultant Recheck triglycerides next week if remains on propofol Acute post-op blood loss anemia Anemia of CKD Transfused 1 unit 11/03, transfuse another unit today Continue Epogen 10k 3 times weekly Daily CBC Iron labs c/w chronic anemia HTN Holding home losartan, coreg T2DM Sick Euthyroid state Recent A1c 11.2, repeat 9.5 Lantus 50U daily DM following, appreciate recs, start moderate q4h correction scale, no scheduled TF insulin at thistime per Endo No thyroid replacement necessary, repeat labs in 4-6 weeks Dispo: CVCC, full code Discussed with attending surgeon on rounds this morning. GLENIS MCGOWAN 11/05/2023 Between the hours of 1800 - 0600 and on the weekends please page [phone]. * Calos Lazo MD - 11/05/2023 9:42 AM EDT DONAL patient seen and examined in follow-up. Patient remains intubated and sedated dependent on inhaled nitric oxide. Nonoliguric but requiring high dose diuretics. Creatinine creeping up. No progresswith fluid overload. I/O last 3 completed shifts: In: 3359 [I.V.:1652.5; Blood:350; NG/GT:1206.5; IV Piggyback:150] Out: 3425 [Urine:3425] I/O this shift: In: 500 [I.V.:60; Blood:350; NG/GT:30] Out: 290 [Urine:290] BP 128/63 (BP Location (NBP): Arterial) Pulse 80 Temp 37.6 ??C (99.7 ??F) (Bladder) Resp 22 Ht 177.8 cm (5' 10) Wt 122.1 kg (269 lb 2.9 oz) SpO2 92% BMI 38.62 kg/m?? Patient Vitals for the past 168 hrs: Weight 11/05/23 0400 122.1 kg (269 lb 2.9 oz) 11/04/23 0400 134.6 kg (296 lb 11.8 oz) 11/03/23 0600 121.5 kg (267 lb 13.7 oz) 11/02/23 0402 133.9 kg (295 lb 3.1 oz) 11/01/23 0200 126.2 kg (278 lb 3.5 oz) 10/31/23 0500 (!) 137 kg (302 lb) 10/30/23 0659 128.9 kg (284 lb 3.2 oz) Sedated, appears comfortable. Moderately severe generalized edema. Chest with few anterior rhonchi.Heart distant but regular. Abdomen doughy with occasional bowel sounds. Incisions clean and dry. Data reviewed. Hemoglobin improved after transfusion. CO2 19, pH 7.3, pCO2 38. Phosphorus 10.5. Creatinine up to 5.9 PTH 239-nonspecific in the setting but likely compatible with underlying CKD. They agree with vitamin D supplementation. He will get good calcium and phosphorus control with CVVH and then we can address the long-term once he has been optimized. TSH elevated, T3 and T4 low. Unclear if this represents an acute effect of amiodarone? Consider supplementation versus discussion with endocrine? Assessment plan: Nonoliguric DONAL, persistent volume overload despite efforts at diuresis. At this point, I think we should proceed to hemofiltration with a goal of negative fluid balance of 1 to 2 L over the next 12 hours to see how he tolerates this and how it impacts his respiratory status. Please save nondominant arm vein. Confer with pharmacy to dose adjust any medications as needed for hemofiltration. Once he is up and running on hemofiltration, diuretics can be stopped. Continue tube feeds. Standard lab follow-up for CVVH ordered. Discussed with CT surgery service. Addendum: Attempts to start CVVH met with decompensation, low BP, desat, mechanism unclear, no rash or wheezing to suggest allergy and sx improved with blood return (usually if allergic to dialyzer, sx do not glenn with blood return) suggesting possible preload dependence due to rv impairment? Subsequently he low sats, pssibly due to exacerbation of vq mismatch? Discussed with ct surgery. Urine output dropping off and it is likely that CRUISE CONSULTANT will be necessary despite poor tolerance today. If preload dependence is felt to be the mechanism of the instability, consider prbcs transfusion or albumin infusion with initiation. Lytes and pH ok by blood gas this evening. Latest Reference Range & Units 11/05/23 20:06 Hgb Blood Gas 13.7 - 16.5 g/dL 9.4 (L) pH, Arterial 7.35 - 7.45 7.40 PCO2, Arterial 35 - 45 mmHg 32 (L) PO2, Arterial 85 - 104 mmHg 111 (H) Bicarbonate, Arterial 20.0 - 26.0 mmol/L 19.3 (L) Base Excess, Arterial -3.0 - 3.0 mmol/L -5.4 (L) Oxyhemoglobin, Arterial 94.0 - 97.0 % 97.1 (H) Carboxyhemoglobin, Arterial % 0.1 Methemoglobin, Arterial <=1.5 % 0.3 PF Ratio Art Ratio 139 Fraction of Inspired Oxygen % 80 Na Whole Blood 135 - 145 mmol/L 139 K Whole Blood 3.5 - 5.0 mmol/L 3.8 CL Whole Blood 98 - 107 mmol/L 104 ICa Whole Blood 1.15 - 1.33 mmol/L 1.06 (L) Lactate WB 0.5 - 2.2 mmol/L 1.1 Gluc Whole Bld 65 - 199 mg/dL 199 * Steven Garcia MD - 11/05/2023 8:09 AM EDT CARDIAC CRITICAL CARE ATTENDING STAFF PROGRESS NOTE Patient seen and examined. Hayden Russo is a 47 y.o. male with: Active Hospital Problems Diagnosis S/P CABG x 3 Respiratory failure with hypoxia Class 3 severe obesity in adult CKD (chronic kidney disease) DONAL (acute kidney injury) CAD (coronary artery disease) Diabetes mellitus Hypertension Resolved Hospital Problems No resolved problems to display. ID: 47 y.o. male with a history of ASCVD presenting with inferior STEMI s/p RCA PCI 2018 with recurrent RCA closures and repeat PCI (most recently July 2023), ischemic cardiomyopathy (LVEF 45%, RV dysfunction), poorly controlled IDDM2, chronic renal insufficiency (baseline creatinine in 2s), BMI 42, HTN, HLD, TUD in remission who is now s/p planned 3vCABG ([place]-LAD, SVG-OM2, SVG-RPDA) with Dr. Person on 10/30/23 with post-op course complicated by RV failure, cardiogenic shock, severe hypoxic respiratory failure and acute kidney injury on CKD. ASSESSMENT, MANAGEMENT, and DECISION MAKING: Neuro: Fentanyl, precedex for comfort. CV: Remains HDs currently off vasoactive support. RV function improved. [place] removed. Continuing todiurese as able given acute on chronic renal insufficiency. Resp: Oxygenation continues to be the major barrier to progress. Sofía decreased down to 1ppm with poor oxygenation when trial off attempted. Etiology likely multifactorial including components of volume overload, consolidation, possible infection. Continuing to support as needed. Discussion regarding alternative Sofía delivery methods ongoing. Endo: Insulin per protocol. Consider thyroid replacement. GI: TFs ongoing. PPI. Renal: Acute on chronic renal insufficiency. UOP adequate though creatinine rising. Net -193 mls. No urgent indication for CRRT at this time. K 3.7. Lasix gtt. Heme: ASA, plavix. Goal hgb > 8 given renal insufficiency. Epogen. ID: Zosyn EXAM: Patient Vitals for the past 168 hrs: Weight 11/05/23 0400 122.1 kg (269 lb 2.9 oz) 11/04/23 0400 134.6 kg (296 lb 11.8 oz) 11/03/23 0600 121.5 kg (267 lb 13.7 oz) 11/02/23 0402 133.9 kg (295 lb 3.1 oz) 11/01/23 0200 126.2 kg (278 lb 3.5 oz) 10/31/23 0500 (!) 137 kg (302 lb) 10/30/23 0659 128.9 kg (284 lb 3.2 oz) Temp: [37.2 ??C (99 ??F)-37.8 ??C (100 ??F)] Heart Rate: [80] Resp: [16-27] BP: -- SpO2: [84 %-100 %] Heart Rate from SpO2: -- Physical Exam Intubated, opens eyes Mechanical breath sounds RRR S/ND WWP Recent Results (from the past 24 hour(s)) Blood Gas, Arterial POC Result Value Ref Range pH, Arterial 7.36 7.35 - 7.45 PCO2, Arterial 40 35 - 45 mmHg PO2, Arterial 86 85 - 104 mmHg Bicarbonate, Arterial 21.9 20.0 - 26.0 mmol/L Base Excess, Arterial -3.6 (L) -3.0 - 3.0 mmol/L Hemoglobin, Arterial 7.8 (L) 13.7 - 16.5 g/dL Oxyhemoglobin, Arterial 94.1 94.0 - 97.0 % Carboxyhemoglobin, Arterial 0.6 % Methemoglobin, Arterial 0.3 <=1.5 % Sodium, Arterial 136 135 - 145 mmol/L Potassium, Arterial 3.8 3.5 - 5.0 mmol/L Chloride, Arterial 102 98 - 107 mmol/L Lactate, Arterial 1.2 0.5 - 2.2 mmol/L Fraction of Inspired Oxygen 40 % PF Ratio 215 Ratio IONIZED CALCIUM, ARTERIAL 0.96 (L) 1.15 - 1.33 mmol/L Glucose, Arterial 171 65 - 199 mg/dL Potassium Result Value Ref Range Potassium 3.7 3.5 - 5.0 mMol/L Iron and TIBC Result Value Ref Range Iron 14 (L) 45 - 160 mcg/dL TIBC 146 (L) 250 - 450 mcg/dL Iron Saturation 10 (L) 20 - 50 % CK Result Value Ref Range Creatine Kinase 3,650 (H) 0 - 200 unit/L Uric acid Result Value Ref Range Uric Acid 12.8 (H) 3.5 - 8.5 mg/dL TSH Result Value Ref Range Thyroid Stimulating Hormone 7.14 (H) 0.27 - 4.20 mcIU/mL T4 Total Result Value Ref Range T4 Total 1.8 (L) 4.6 - 7.9 mcg/dL T3 Total Result Value Ref Range T3 Total 38 (L) 80 - 200 ng/dL Blood Gas, Arterial POC Result Value Ref Range pH, Arterial 7.40 7.35 - 7.45 PCO2, Arterial 35 35 - 45 mmHg PO2, Arterial 91 85 - 104 mmHg Bicarbonate, Arterial 20.9 20.0 - 26.0 mmol/L Base Excess, Arterial -3.9 (L) -3.0 - 3.0 mmol/L Hemoglobin, Arterial 7.5 (L) 13.7 - 16.5 g/dL Oxyhemoglobin, Arterial 95.3 94.0 - 97.0 % Carboxyhemoglobin, Arterial 0.4 % Methemoglobin, Arterial 0.3 <=1.5 % Sodium, Arterial 137 135 - 145 mmol/L Potassium, Arterial 3.5 3.5 - 5.0 mmol/L Chloride, Arterial 102 98 - 107 mmol/L Lactate, Arterial 1.2 0.5 - 2.2 mmol/L Fraction of Inspired Oxygen 40 % PF Ratio 228 Ratio IONIZED CALCIUM, ARTERIAL 0.97 (L) 1.15 - 1.33 mmol/L Glucose, Arterial 146 65 - 199 mg/dL Urea nitrogen, urine, random Result Value Ref Range Urea Nitrogen, Urine 194 mg/dL Creatinine, urine, random Result Value Ref Range Creatinine, Urine 64 mg/dL Urinalysis Dipstick Result Value Ref Range Glucose, Urine Dipstick 100 mg/dL (A) Negative Protein, Urine Dipstick 100 mg/dL (A) Negative Bilirubin, Urine Dipstick Negative Negative Urobilinogen, Urine Dipstick Normal Normal, 0.2 mg/dL, 1.0 mg/dL pH, Urine (dipstick) 5.5 5.0 - 8.0 Blood, Urine Dipstick Trace (A) Negative Ketone, Urine Dipstick Negative Negative Nitrite, Urine Dipstick Negative Negative Leukocytes, Urine Dipstick Negative Negative Specific Thermal Urine Automated 1.015 1.005 - 1.030 Appearance, Urine Dipstick Turbid (A) Clear Color, Urine Dipstick Yellow Yellow, Dark Yellow CULTURE ADDED? Urinalysis Microscopic Result Value Ref Range RBC, Urine 4 (H) 0 - 3 /HPF WBC, Urine 1 0 - 3 /HPF Squamous Epithelial Cells, Urine 18 (H) 0 - 5 /HPF Hyaline Casts, Urine 1 0 - 2 /LPF Granular Casts, Urine 2 (H) <=0 /LPF Cell Cast, Urine <1 (H) <=0 /LPF Comment Bacteria, Urine Moderate (A) None /HPF Sodium, urine, random Result Value Ref Range Sodium, Urine 50 mMol/L Protein/Creatinine Ratio, urine Result Value Ref Range Protein, Urine 82 (H) 0 - 12 mg/dL Creatinine, Urine 66 mg/dL Protein / Creatinine Ratio, Urine 1.2 ratio U Albumin/Cre Ratio Result Value Ref Range Albumin, Urine 389.8 mg/L Creatinine, Urine 66 mg/dL Albumin / Creatinine Ratio, Urine 591 (H) 0 - 29 mcg/mg Cr Prepare RBC Result Value Ref Range Status Information Transfused Product Identification RBC Unit Number [id number] Product Code [id number] Unit Blood Type OPOS Specimen Expiration Date [id number] [place] 350 Issue Date / Time [id number] Ferritin Result Value Ref Range Ferritin 835 (H) 31 - 409 ng/ml PTH Result Value Ref Range Parathyroid Hormone 239 (H) 15 - 65 pg/mL Vitamin D, 25-Hydroxy Result Value Ref Range Vitamin D Total 25 OH 9 (L) 21 - 100 ng/ml Vitamin D Total 25 OH Interp Deficient Hepatitis B Surface Antigen Result Value Ref Range Hepatitis B Surface Antigen Negative Negative Hepatitis B Core Antibody, IgM Result Value Ref Range Hepatitis B Core IgM Negative Negative Hepatitis C Antibody with Reflex Result Value Ref Range Hepatitis C Antibody Negative Negative HCV Reflex Hold Result Value Ref Range HCV Hold Hold for Add-on Blood Gas, Arterial POC Result Value Ref Range pH, Arterial 7.38 7.35 - 7.45 PCO2, Arterial 35 35 - 45 mmHg PO2, Arterial 89 85 - 104 mmHg Bicarbonate, Arterial 20.4 20.0 - 26.0 mmol/L Base Excess, Arterial -4.6 (L) -3.0 - 3.0 mmol/L Hemoglobin, Arterial 9.3 (L) 13.7 - 16.5 g/dL Oxyhemoglobin, Arterial 95.1 94.0 - 97.0 % Carboxyhemoglobin, Arterial 0.2 % Methemoglobin, Arterial 0.3 <=1.5 % Sodium, Arterial 137 135 - 145 mmol/L Potassium, Arterial 4.0 3.5 - 5.0 mmol/L Chloride, Arterial 102 98 - 107 mmol/L Lactate, Arterial 1.2 0.5 - 2.2 mmol/L Fraction of Inspired Oxygen 40 % PF Ratio 223 Ratio IONIZED CALCIUM, ARTERIAL 1.03 (L) 1.15 - 1.33 mmol/L Glucose, Arterial 153 65 - 199 mg/dL CK Result Value Ref Range Creatine Kinase 3,171 (H) 0 - 200 unit/L Potassium Result Value Ref Range Potassium 4.0 3.5 - 5.0 mMol/L POC, GLUCOSE Result Value Ref Range Glucometer, POC 161 65 - 199 mg/dL POC, GLUCOSE Result Value Ref Range Glucometer, POC 151 65 - 199 mg/dL POC, GLUCOSE Result Value Ref Range Glucometer, POC 182 65 - 199 mg/dL CK Result Value Ref Range Creatine Kinase 2,610 (H) 0 - 200 unit/L Magnesium Result Value Ref Range Magnesium 1.01 0.69 - 1.07 mMol/L Phosphorus Result Value Ref Range Phosphorus 10.0 (CRIT) 2.5 - 4.5 mg/dL Vancomycin Level, Random Result Value Ref Range Vancomycin, Random 17.9 mg/L Basic Metabolic Panel Result Value Ref Range Glucose 171 65 - 199 mg/dL Blood Urea Nitrogen 75 (H) 10 - 20 mg/dL Creatinine 5.90 (H) 0.80 - 1.50 mg/dL Sodium 141 135 - 145 mMol/L Potassium 3.7 3.5 - 5.0 mMol/L Chloride 102 98 - 107 mMol/L Carbon Dioxide 20 (L) 22 - 31 mMol/L Anion Gap 19 (H) 5 - 15 mMol/L Calcium 8.1 (L) 8.5 - 10.5 mg/dL Est Glomerular Filtration Rate - Male 11 mL/min/1.73 m?? CBC (with Diff) Result Value Ref Range White Blood Cell 11.20 (H) 4.00 - 9.50 x10(3)/mcL Red Blood Cell 3.47 (L) 4.58 - 5.54 x10(6)/mcL Hemoglobin 7.3 (L) 13.7 - 16.5 g/dL Hematocrit 23.0 (L) 40.5 - 48.5 % Mean Cell Volume 66.3 (L) 82.9 - 93.1 fL Mean Cell Hemoglobin 21.0 (L) 27.5 - 32.1 pg Mean Cell Hemoglobin Concentration 31.7 (L) 32.0 - 35.7 g/dL Platelet 242 145 - 357 x10(3)/mcL Mean Platelet Volume 11.1 7.6 - 12.9 fL RDW Standard Deviation 43.4 36.0 - 45.0 fL RDW coefficient of variation 18.5 (H) 11.4 - 13.8 % NRBC% auto 0.9 % NRBC Absolute 0.10 (H) 0.00 - 0.00 x10(3)/mcL Neutrophil % 82.7 % Neutrophil Absolute (ANC) - Automated 9.25 (H) 1.70 - 6.10 x10(3)/mcL Lymph % 6.5 % Lymph Absolute 0.73 (L) 0.90 - 3.20 x10(3)/mcL Monocyte % 6.6 % Monocyte Absolute 0.74 0.30 - 0.90 x10(3)/mcL Eos % 2.5 % Eos Absolute 0.28 0.00 - 0.40 x10(3)/mcL Basophil % 0.4 % Baso Absolute 0.05 0.00 - 0.10 x10(3)/mcL Immature Gran % 1.3 % Immature Gran Absolute 0.15 (H) 0.00 - 0.04 x10(3)/mcL Blood Gas, Arterial POC Result Value Ref Range pH, Arterial 7.38 7.35 - 7.45 PCO2, Arterial 34 (L) 35 - 45 mmHg PO2, Arterial 108 (H) 85 - 104 mmHg Bicarbonate, Arterial 19.8 (L) 20.0 - 26.0 mmol/L Base Excess, Arterial -5.3 (L) -3.0 - 3.0 mmol/L Hemoglobin, Arterial 7.0 (L) 13.7 - 16.5 g/dL Oxyhemoglobin, Arterial 96.6 94.0 - 97.0 % Carboxyhemoglobin, Arterial 0.1 % Methemoglobin, Arterial 0.3 <=1.5 % Sodium, Arterial 139 135 - 145 mmol/L Potassium, Arterial 4.0 3.5 - 5.0 mmol/L Chloride, Arterial 104 98 - 107 mmol/L Lactate, Arterial 1.1 0.5 - 2.2 mmol/L Fraction of Inspired Oxygen 40 % PF Ratio 270 Ratio IONIZED CALCIUM, ARTERIAL 1.03 (L) 1.15 - 1.33 mmol/L Glucose, Arterial 151 65 - 199 mg/dL POC, GLUCOSE Result Value Ref Range Glucometer, POC 169 65 - 199 mg/dL CK Result Value Ref Range Creatine Kinase 2,283 (H) 0 - 200 unit/L Potassium Result Value Ref Range Potassium 4.0 3.5 - 5.0 mMol/L POC, GLUCOSE Result Value Ref Range Glucometer, POC 162 65 - 199 mg/dL IS PATIENT CRITICALLY ILL ? Is there a high potential of sudden, clinically significant, or life threatening deterioration? Yes Is there a need for direct personal assessment and management to treat/prevent multiple vital organfailure/deterioration? Yes PATIENT IS CRITICALLY ILL WITH THESE DIAGNOSES BEING MANAGED: Congestive Heart Failure Other:RV Hypotension Arterial Renal Disease/Failure Acute Chronic Kidney Disease, stage 3 Respiratory Failure Acute with hypoxia Acute with hypercapnia I personally performed 40 minutes of aggregate critical care time exclusive of procedures and teaching. The billed time does not overlap with cardiology/cardiac surgical attending assessement and includes time spent during direct patient evaluation and reassessment, interpreting diagnostic tests, di recting life and/or organ supporting interventions and documentation on the unit. * Bandar Sánchez COMPONENT PREP OPERATOR - 11/04/2023 11:22 PM EDT Hayden Russo is a 47 y.o. male has issues that include: Active Hospital Problems Diagnosis S/P CABG x 3 Respiratory failure with hypoxia Class 3 severe obesity in adult CKD (chronic kidney disease) DONAL (acute kidney injury) CAD (coronary artery disease) Diabetes mellitus Hypertension AMV Protocol: Yes SBT Protocol: No Vent Settings: Ventilator Mode: VC Tidal Volume Set: 590 Resp Rate Set: 15 PEEP Set: 10 FiO2: 41 % Ventilator Measurements: Resp: 22 Vt Exhaled: 0 PIP: 55 MAP: 13.1 Plateau Press: 28 Ve: 4 PEEP: 10 cmH20 SpO2: 97 % EtCO2: 32 mmHg Airway: 8.0 @ 25 cm at the Teeth. Skin Integrity: WDL MDI Inhaled Medications: Albuterol Breath Sounds: BBS clear anteriorly Secretions: Small amount opaque Assessment / Events / Plan of the Day: Pt received on MV/AC with supplemental nitric now running at1ppm. The pt was liberated briefly at 2221 resulting in a need for 60% fio2 with sustained spo2 88%or less. Pt was restarted at 2230 on 0.5ppm and has been able to be weaned of fio2. Increased to 1ppm per provider request. Bandar Sánchez RCP * Mamie Mckeon RCP - 11/04/2023 3:59 PM EDT AMV Protocol: Yes SBT Protocol: No Vent Settings: Ventilator Mode: VC Tidal Volume Set: 590 Resp Rate Set: 15 PEEP Set: 10 FiO2: 40 % Ventilator Measurements: Resp: 26 Vt Exhaled: 542 PIP: 38 MAP: 16.3 Plateau Press: 28 Ve: 10 PEEP: 10 cmH20 SpO2: 98 % EtCO2: 32 mmHg Airway: 8.0 @ 25 cm at the Teeth. Skin Integrity: WDL MDI Inhaled Medications: Albuterol Breath Sounds: Diminished/clear. Secretions: Small thin white. Assessment / Events / Plan of the Day: Pt received on the above VCV and 5ppm SOFÍA. Weaned SOFÍA to 1ppm with no adverse effects. When turned off pt became hypotensive and sat of 83%. Was placed back on 1ppm and will wean as tolerated. Remains on the above vent settings and will continue to wean per protocol as tolerated. Mamie Mckeon RCP * Janie Smith MD - 11/04/2023 12:38 PM EDT CRITICAL CARE ATTENDING PROGRESS NOTE ASSESSMENT, MANAGEMENT, and DECISION MAKING: NEURO: Continue analgesia with intravenous opioid. Would reduce/stop if possible propofol given triglyceride level. Utilize Precedex - did have a temporally related febrile condition but not clear what the etiology of that was. RESP: Hypoxic respiratory failure most likely related to consolidation seen on CT chest. May have pneumonia component, unclear. Continue current ventilator management approach. Is on Sofía and initially had a profound response to this, but now able to wean; likely to be stopped. Not ready for extubation consideration but improving. CV: RV function has improved as judged by PA catheter data. Pressor support requirement decreased. Would maintain volume status negative as tolerated. FEK: Acute on chronic renal insufficiency. Administering diuretics to assist with volume status, aswell as to assist with hyperkalemia. Creatinine worsening. Anticipate that renal function will improve over the near future. If not able to control metabolic status would consider CVVH. ENDOCRINE: Insulin protocol. GI: Continue nutrition support. Patient seen and examined. Hayden Russo is a 47 y.o. male has issues that include: Active Hospital Problems Diagnosis S/P CABG x 3 Respiratory failure with hypoxia Class 3 severe obesity in adult CKD (chronic kidney disease) DONAL (acute kidney injury) CAD (coronary artery disease) Diabetes mellitus Hypertension Resolved Hospital Problems No resolved problems to display. Active Non-Hospital Problems Diagnosis STEMI (ST elevation myocardial infarction) Acute ST elevation myocardial infarction (STEMI) of inferior wall Cardiac Catheterization/ PCI (STEMI presentation) 10/12/18: Conclusions: * Three vessel coronary artery disease (LAD, LCX and RCA) * Elevated left ventricular end diastolic pressure * Successful stent insertion of the distal RCA lesion * Successful stent insertion of the mid LCX lesion EXAM: Temp: [37.1 ??C (98.8 ??F)-37.7 ??C (99.9 ??F)] Heart Rate: [80-82] Resp: [15-21] BP: (103)/(51) SpO2: [93 %-97 %] Heart Rate from SpO2: -- Physical Exam Constitutional: Appearance: He is obese. Interventions: He is sedated and intubated. Cardiovascular: Rate and Rhythm: Normal rate. Pulmonary: Effort: He is intubated. Breath sounds: Normal breath sounds. Body mass index is 42.58 kg/m??. IS PATIENT CRITICALLY ILL ? Is there a high potential of sudden, clinically significant, or life threatening deterioration? Yes Is there a need for direct personal assessment and management to treat/prevent multiple vital organfailure/deterioration? Yes PATIENT IS CRITICALLY ILL WITH THESE DIAGNOSES BEING MANAGED: Congestive Heart Failure Other:right heart Hyperkalemia Hypotension Arterial Renal Disease/Failure Acute Chronic Kidney Disease, stage 3 Respiratory Failure Acute with hypoxia Acute with hypercapnia I personally performed 45 minutes of aggregate critical care time exclusive of procedures and teaching. This includes time spent during direct patient evaluation and reassessment, interpreting diagnostic tests, directing life and/or organ supporting interventions and documentation on the unit. Timenoted does not include overlapping time with other physicians or advanced practice providers. * He Styles PA - 11/04/2023 10:22 AM EDT Cardiac Surgery Progress Note Hayden Russo is a 47 y.o. male with CAD who is 5 Days Post-Op CABGx3. PMH of inferior STEMI s/p PCI, IDDM2, HTN, HLD, CKD, former smoker. 24h Events: Sofía weaned to 5 ppm Diuril 500 x1 given to augment lasix drip, net neg 100cc the past 24h, Cr continues to climb, 5.66 from 5.39, hyperphosphatemia w/ phosph of 10, no hyperkalemia, calcium given overnight LE duplex showing age indeterminate right peroneal DVT, started Coumadin, remains on SQH Amio transitioned to PO, remains in NSR DHT placed and trickle TFs started Hgb 6.7, transfused 1 unit pRBC S: Intubated and sedated O: Temp: [37.1 ??C (98.8 ??F)-37.7 ??C (99.9 ??F)] Heart Rate: [80-82] Resp: [15-21] BP: (103)/(51) SpO2: [95 %-97 %] Heart Rate from SpO2: -- Hemodynamics: CI 2.4 - 3.2 PAP 40/20 CVP 11-14 Drips: Prop 50 Fent 75 Levo 2-6 Lasix 20 Insulin OFF Tube feeds at 10/hr Vent settings: VC 590 x 15 40% PEEP 10 Sofía at 5 ppm 11/02 0701 - 11/03 0700 In: 2389.5 [I.V.:1434.2] Out: 2525 [Urine:2525] Admit weight: 128.91 kg Current weight: Weight: 134.6 kg (296 lb 11.8 oz) Physical Exam: General: Lying in bed on ventilator. Appears stated age. NAD. Neuro: Intubated and sedated. PERRL. Winces to pain. Lungs: Bilateral mechanical breath sounds present. Heart: RRR, S1S2 diminished, no murmurs, A paced on tele Abdomen: Obese, +bowel sounds, ND Ext: WWP, 2+ edema Incisions: [place] TAMPER CDI Tubes/Lines/Drains: RIJ/PAC, [place], TPW, Todd, DHT, PIV Assessment/Plan: 47 y.o. male 5 Days Post-Op CABGx3 MV CAD s/p CABGx3 RV dysfunction Restart ASA Plavix Statin Inotropes weaned off, CI remains >2.2, remove [place] today Wean levo as able, replace calcium Post operative acute hypoxemic respiratory failure CT chest 11/01 with bilateral lower lobe collapse Continue lasix drip, goal even to neg 500cc per 24h Advance tube feeds to goal via DHT BAL sent 11/01, final results with rare mixed bacteria c/w normal upper respiratory adrian Continue empiric zosyn x8 days Wean Sofía to off, goal pao2 >65, goal spo2>92 Continue vent support with PEEP of 10 Scheduled albuterol Post operative atrial fibrillation related to cardiac surgery Amio 200 qd Single episode, will discuss A/C if has further episodes Acute on chronic renal insufficiency Hyperkalemia (resolved) Hyperphosphatemia Hypocalcemia Continue lasix drip as above No diuril today Daily BMPs Monitor UOP Consult Nephrology for assistance with electrolyte management, no need for CVVH at this time Age indeterminate right peroneal DVT B/l LE duplex 11/02 with age indeterminate right peroneal DVT Stop Coumadin Cont SQH for DVT ppx SCDs Acute hypertriglyceridemia On propofol Febrile with precedex, will retry today given triglycerides of 464, if febrile will stop and discuss alternative with home sales consultant Recheck triglycerides next week if remains on propofol Acute post-op blood loss anemia Anemia of CKD Transfuse 1 unit for Hgb 6.7 Start Epogen 10k 3 times weekly Daily CBC HTN Holding home losartan, coreg T2DM Recent A1c 11.2, repeat 9.5 Cont insulin gtt protocol with advancement of tube feeds Lantus 50U daily DM following, appreciate recs, will transition to correction scale when ready Dispo: CVCC, full code Discussed with attending surgeon on rounds this morning. GLENIS MCGOWAN 11/04/2023 Between the hours of 1800 - 0600 and on the weekends please page [phone]. * Genaro Goins RCP - 11/04/2023 6:20 AM EDT Illness Severity Watcher Respiratory Modalities: O2 Device: VC 590/+10, x15 40 % (8.1 ml/kg) Airway: 8.0 @ 25 Teeth Patient Summary Admitted: 10/30/2023 Age: 47 y.o. Code Status: FULL. HPI: CABG x3, EF about 45% & moderate RV dysfunction PMHx: severe atherosclerotic coronary disease, DM, R Coronary STEMI s/p PCI + stent (found to be occluded and reopened with more stents), HTN, HLD, CKD, former smoke(quit 2020) Events w/ date: 11/01- increased Fio2 to 100%, CT, Sofía Bronchoscopy and BAL 11/02- Sofía 5ppm- weaned FiO2 to 40% Pt received on above settings overnight. Pt remained on Nitric 5 ppm, and received all scheduled MDI treatments. No events overnight. Secretions thin/thick dang overnight. Action List Medications/ACT: Albuterol MDI Q4 Sofía -5ppm * Kita Gorman APRN - 11/03/2023 4:55 PM EDTSummary: V ??Original consult completed: 10/31/2023 Images from the original note were not included. Patient Interview & Updates Overall insulin needs have stabilized with variability of 0.5-3 units an hour with the Lantus on board-this is his home dose. Ongoing acidosis concerning for DKA in setting of SGLT-2i - BHOB negative. Team talked to , we verified he was taking farxiga up until day of surgery, and has note been on ozempic since May. Discussed with team-Ambrocio is intubated and sleeping There is plan for tube feeding to start as well. FROM RD note today Peptamen Intense VHP with a goal rate of 55 mL per hour This rate is calculated to compensate for unplanned time off feedings due to potential procedures, etc. At goal, this will provide 1100 mL formula, 1100 calories, 101 grams protein, 924 mL water from formula, and 73% of the RDI's for vitamin and minerals. Daily multivitamin on above TF Objective Temp: [37.4 ??C (99.3 ??F)-37.7 ??C (99.9 ??F)] Heart Rate: [63-80] Resp: [12-17] BP: -- SpO2: [95 %-100 %] Heart Rate from SpO2: -- Current Regimen Lantus given last evening-his home dose 50 units at 1700 Insulin drip trended from 3 units an hour to now 0.5-3 units per hour for the previous shift now at0.5 an hour x 3 hours Recent Glucose Levels Recent Labs 11/03/23 1546 11/03/23 1124 11/03/23 1003 11/03/23 0925 11/03/23 0622 11/03/23 0509 11/03/23 0220 11/03/23 0022 11/02/23 2208 11/02/23 2003 11/02/23 1436 11/02/23 1252 POCGLU 145 145 126 115 129 138 152 155 153 174 158 141 ASSESSMENT Hayden Russo is a 47 y.o. male from [place], [place], with PMH significant for ASCVD-CAD (2019 STEMI w/PCI - RCA stent, then occluded and re-stented 05/2023), CKD (eGFR 33), NIDDM2 poorly controlled (A1c 11.2% 05/2023), who was admitted on 10/30/2023 currently being treated for re-occlusion of stents, now s/p 10/29 CABG X3. Ambrocio has chronically poor DM control and insulin requiring not dependant prior to surgery. He was using basal/bolus insulin, and based on SureScripts, likely taking ~100u/day total, which is consistent with weight-based estimates. PLAN Lantus:suggest continuing 50 units daily at 6 PM and continue insulin drip protocol When ready to come off insulin drip if status improves-use moderate correction q 4 hours and do NOTstart this change until at least 3 hours after first dose of Lantus Lispro suggest 1:6 insulin to carbohydrate ratio if starts eating real food BUT USE for tube feeds suggest 1:5 I:C and ISF 1:20 If start using SQ insulin please use planned meal insulin for the tube feeding insulin if rate per hour gets > 50 cc/hour THOUGHTS FOR THE NEAR FUTURE Tube feeding composition Pepta Intense [facility] offers 76 GM CHO per litre. Over a 24 hour feed this is total of 88 GM CHO in oneday at 50 cc/hour This is 3.6 GM per CHO an hour This is ~15 GM per 4 hours once up to 50 -60 cc/hour This would necessitate 2 units an hour for an every 4 hour suggested lispro SQ dose of 8 units every 4 hours at the top of the hour Insulin dosing:Consider-he takes short acting insulin at home and is prescribed to take 20-50 unitspre meal for meal and correction; Based on BMI, if insulin naive and weight KG If weight based dosing-would rec 38 units basal, ISF 6.8 and I:C 1:20 40minutes of this 50minute visit was spent with the patient in counseling on diabetes and treatmentplan, reviewing all glucose and insulin data as well as relevant laboratory results with the patient, and coordination of care on the inpatient unit including nursing and primary team. * Natalia Moulton PA - 11/03/2023 8:56 AM EDT Cardiac Surgery Progress Note Hayden Russo is a 47 y.o. male with CAD who is 4 Days Post-Op CABGx3. PMH of inferior STEMI s/p PCI, IDDM2, HTN, HLD, CKD, former smoker. 24h Events: Mil weaned off Brief episode afib with RVR midday, converted to NSR with amio bolus/gtt Ongoing hypoxemia, started Sofía with improvement, FiO2 weaned to 50%, last abg 7.4 / CT Chest with ongoing b/l lower lobe collapse Bedside bronch, cultures sent Prelim sputum GPCs/GNRs, empiric vanc/zosyn started Ongoing diuresis w lasix gtt, -500/d S: Intubated and sedated O: Temp: [37.5 ??C (99.5 ??F)-37.7 ??C (99.9 ??F)] Heart Rate: [63-116] Resp: [12-26] BP: -- SpO2: [89 %-100 %] Heart Rate from SpO2: -- Hemodynamics: CVP low teens / PA 40s/20s / 1.9 Drips: Levo 10 Mil OFF Vaso OFF Epi OFF Other Insulin 3U/h Fent 75 / prop 50 Vent settings: VC 50% PEEP 10 11/01 0701 - 11/02 0700 In: 2122.3 [I.V.:1637.3] Out: 2645 [Urine:2445] Net -500/d Admit weight: 128.91 kg Current weight: Weight: 121.5 kg (267 lb 13.7 oz) Physical Exam: General: intubated and sedated Neuro: intubated and sedated Lungs: mech breath sounds b/l Heart: NSR 60s on tele Abdomen: soft, ntnd Ext: wwp, 1-2+ edema Incisions: sternotomy incision, saphenectomy site ASPHALT TAMPER/CDI Tubes/Lines/Drains: RIJ, [place], TPW, Todd Assessment/Plan: 47 y.o. male 4 Days Post-Op CABGx3 S/p CABGx3 RV dysfunction Post operative respiratory failure ASA 81 Plavix (for lovelock CAD) Lipitor 80 Cont lasix gtt Diuril x1 to augment UOP Start trickle TFs B/l LE duplex to r/o DVT Wean levo as able Vent wean as able SQH, SCDs for DVT ppx Vanc/Zosyn for pna ppx Post operative atrial fibrillation related to cardiac surgery Amio gtt to PO 200 BID Acute on chronic renal insufficiency Hyperkalemia (resolved) Daily BMPs Monitor UOP HTN Holding home losartan, coreg T2DM Recent A1c 11.2, repeat 9.5 Cont insulin gtt Lantus 50U daily DM following, appreciate recs Dispo: CVCC, full code Discussed with attending surgeon on rounds this morning. GLENIS Rodríguez 11/03/2023 Between the hours of 1800 - 0600 and on the weekends please page [phone]. * Renata Britton RCP - 11/03/2023 8:17 AM EDT Illness Severity: Watcher AMV Protocol: Yes SBT Protocol: Yes SBT: Not performed/Excluded: Paralytic medication in use Vent Settings: Ventilator Mode: VC Tidal Volume Set: 590 Resp Rate Set: 15 PEEP Set: 10 FiO2: 50% Ventilator Measurements: Resp: 17 Vt Exhaled: 558 PIP: 31 MAP: 14.8 Plateau Press: 25 Ve: 8.9 PEEP: 9.7 cmH20 SpO2: 96 % EtCO2: 31 mmHg Airway: 8.0 @ 25 cm at the Teeth. Skin Integrity: WDL Assessment / Events / Plan of the Day: Received Pt on above setting and Sofía 5ppm. Pt tolerating well. Weaned FiO2 to 40 based on ABG. Pt remains on same settings at 5ppm. Will continue to monitor and support as tolerated. Renata Britton RCP * Cristina Bran MD - 11/03/2023 8:15 AM EDT Cardiovascular Critical Care Attending Note Hayden Russo 1975 Age: 47 y.o. PCP: Bandar Hahn MD Date of Service: 11/03/2023 Date of Admission: 10/30/2023 Length of Stay Hospital Day 4 days Patient ID: Hayden Russo is a 47 y.o. male with a history of ASCVD presenting with inferior STEMI s/p RCA PCI 2019 with recurrent RCA closures and repeat PCI (most recently July 2023), ischemic cardiomyopathy (LVEF 45%, RV dysfunction), poorly controlled IDDM2, chronic renal insufficiency (baseline creatinine in 2s), BMI 42, HTN, HLD, TUD in remission who is now s/p planned 3vCABG (GREEN[place]OD-LAD, SVG-OM2, SVG-RPDA) with Dr. Person on 10/30/23 with post-op course complicated by RV failure, cardiogenic shock, severe hypoxic respiratory failure and acute kidney injury on CKD. The patient was seen and examined on critical care rounds. Hayden Russo is a 47 y.o. male with the following active issues: Active Hospital Problems Diagnosis S/P CABG x 3 Respiratory failure with hypoxia Class 3 severe obesity in adult CKD (chronic kidney disease) DONAL (acute kidney injury) CAD (coronary artery disease) Diabetes mellitus Hypertension Resolved Hospital Problems No resolved problems to display. INTERVAL HISTORY: Severe hypoxia yesterday with component of bilateral lobe atelectasis. Started on Sofía Bronchoscopy Broad spectrum abx started Decreasing UOP although non-oliguric Lasix gtt started Improving oxygenation overnight Slowly improving hemodynamic profile Afib yesterday during the day treated with amio gtt and converted to NSR MEDICATIONS: Scheduled Meds: chlorothiazide 500 mg Intravenous Once AMIOdarone 200 mg Oral Daily heparin (porcine) 7,500 Units Subcutaneous 2 times per day insulin glargine (Lantus;Semglee) (100 unit/mL) subcutaneous injection 50 Units Subcutaneous Q24H piperacillin-tazobactam 3.375 g Intravenous Q8H clopidogreL 75 mg Oral Daily acetaminophen 975 mg Oral Q6H ISAMAR atorvastatin 80 mg Oral QPM chlorhexidine 15 mL Oral BID pantoprazole EC 40 mg Oral Daily Or pantoprazole 40 mg Intravenous Daily senna-docusate 2 tablet Oral Daily shift total and Settings verification Intravenous 2 Times Daily - Shift Total albuteroL 6 puff Inhalation Q4H ISAMAR aspirin 81 mg Oral Daily Or aspirin 300 mg Rectal Daily lidocaine 1 patch Transdermal Q24H Continuous Infusions: AMIOdarone 0.5 mg/min (11/03/23 0800) nitric oxide dexmedeTOMIDine Stopped (11/01/23 2206) furosemide 20 mg/hr (11/03/23 0800) vasopressin Stopped (11/01/23 1313) propofoL 50 mcg/kg/min (11/03/23 0800) fentaNYL 75 mcg/hr (11/03/23 0800) insulin regular human 3 Units/hr (11/03/23 08) EPINEPHrine Stopped (11/01/23 1645) niCARdipine Stopped (11/02/23 1330) NORepinephrine 12 mcg/min (11/03/23 08) EXAM: Last value Range last 24 hrs Temperature Temp: 37.5 ??C (99.5 ??F) Temp: [37.5 ??C (99.5 ??F)-37.7 ??C (99.9 ??F)] Heart Rate Heart Rate: 64 Heart Rate: [63-116] Blood Pressure BP: 131/73 BP: -- Respiratory Rate Resp: 17 Resp: [12-26] SpO2 SpO2: 96 % SpO2: [89 %-100 %] Art BP BP (Arterial Line): 130/55 BP (Arterial Line): (103-175)/(46-68) Weights: Patient Vitals for the past 168 hrs: Weight 11/03/23 0600 121.5 kg (267 lb 13.7 oz) 11/02/23 0402 133.9 kg (295 lb 3.1 oz) 11/01/23 0200 126.2 kg (278 lb 3.5 oz) 10/31/23 0500 (!) 137 kg (302 lb) 10/30/23 0659 128.9 kg (284 lb 3.2 oz) Gen- Middle aged male, intubate, sedated, critically ill and unresponsive HEENT- Endotracheally intubated CV- Regular, normal rate Pulm- Mechanically ventilated Abd- Obese, soft Ext- Warm, +edema Neuro- Pharmacologically sedated and unresponsive Psych- Unable to assess due to sedation Skin- Non-diaphoretic Lines- RIJ Intro/PAC, LRA art line, PIVs, Todd, ETT, DHT PERTINENT DIAGNOSTICS: WBC 12.9 (downtrending) HGB 7.7 (stable) PLT 172 BUN/Cr 58/5.14 <= 51/4.98 Electrolytes WNL Serial ABGs reviewed with normal acid/base status and improving oxygenation. PF ~200 from ~70 yesterday Glycemic control acutely adequate (Ha1c 9.5) Lactate normal Chest CT from 11/01 personally reviewed with bilateral lower lobe atelectasis, extensive ASSESSMENT, MANAGEMENT, and DECISION MAKING: Hayden Russo is a 47 y.o. male with a history of ASCVD presenting with inferior STEMI s/p RCA PCI 2018 with recurrent RCA closures and repeat PCI (most recently July 2023), ischemic cardiomyopathy (LVEF 45%, RV dysfunction), poorly controlled IDDM2, chronic renal insufficiency (baseline creatinine in 2s), BMI 42, HTN, HLD, TUD in remission who is now s/p planned 3vCABG (GRE[place]OD-LAD, SVG-OM2, SVG-RPDA) with Dr. Person on 10/30/23 with post-op course complicated by RV failure, cardiogenic shock, severe hypoxic respiratory failure and acute kidney injury on CKD. Oxygenation improving with supportive care. Will continue with optimal vent settings and hold Sofía at 5 today (weaned from 20 overnight) while making over adjustments. Consider further wean of this tomorrow as tolerated. Would likely benefit from net negative volume status. Note non-oliguric DONAL on CKD. Will add diuril to lasix gtt today to achieve net negative status and continue monitoring of lytes. No indication acutely for CRRT although he is at significant risk for this. Neuro- Sedation prop. Analgesia fent, lido patch, APAP) Hold SAT today given just recovering from oxygenation concerns. Cardiovascular- Goal MAP 65-75. Slight sag in CI since DC milrinone. Will pace to increase HR to 80bpm and augment CO (prefer A-pace if tolerated). Continue amio gtt for afib. Continue DAPT for now but once on therapeutic AC would hold ASA and continue plavix (note PCI RCA July 2023). Atorva. Pulmonary- Wean vent as tolerated. Continue Sofía at 5 today, possible resumption of wean tomorrow. Inhaled therapies. FEK- Continue lasix gtt. Dose Diuril 500 x1 dose and monitor UOP. No acute indication for CRRT while acid/base status and electrolytes stable and non- oliguric. At risk for needing this though. GI- Start enteral Tfs. PPI. RBOs. ID- Broad spectrum coverage for possible PNA with pip/tazo + vanc Heme- SQH, timing for therapeutic AC for afib as per surgeon Endo- Insulin gtt for euglycemia Psych- No acute issues IS THE PATIENT CRITICALLY ILL? Is there a high potential of sudden, clinically significant, or life threatening deterioration? Yes Is there a need for direct personal assessment and management to treat/prevent multiple vital organfailure/deterioration? Yes If this patient is not critically ill, the reason for continued hospitalization is NA. PATIENT IS CRITICALLY ILL WITH THESE DIAGNOSES BEING MANAGED BY Cardiology team providing critical care services ARDS X PA Catheter Hyponatremia X Hypoxemic Resp Failure X Cardiogenic Shock Hypernatremia Pneumonia req Ventilator Acute Myocardial Infarction Hyperkalemia Hypercarbic Resp Failure Subarachnoid Hemorrhage Acute Drug Ingestion / OD Respiratory Acidosis Traumatic Brain Injury X Acute Renal Failure Acute Resp Failure Coma Acute Liver Failure Metabolic Acidosis Stupor Thrombocytopenia Hypotension, Fluids Delirium Neutropenia X Hypotension, Pressors Acute Encephalopathy Hypertensive Emergency Sepsis Ascites Req Treatment Malnutrition Septic Shock with SIRS Coagulopathy Req Treatment Anaphylaxis Active Hemorrhage I personally performed 35 minutes of aggregate critical care time exclusive of procedures and teaching. This includes time spent during direct patient evaluation and reassessment, interpreting diagnostic tests, directing life and/or organ supporting interventions and documentation on the unit. The time documented is independent of the care provided by the Cardiology/Cardiac Surgery attending of record. Cristina Bran MD 11/03/2023 * Janie Smith MD - 11/02/2023 9:43 PM EDT CRITICAL CARE ATTENDING PROGRESS NOTE ASSESSMENT, MANAGEMENT, and DECISION MAKING: NEURO: Continue with sedation with propofol, analgesia with intravenous opioid. RESP: Hypoxic respiratory failure most likely related to consolidation seen on CT chest. May have pneumonia component, unclear. BAL/bronch performed, await data. PEEP adjustment has helped. Due to severity of Has improved over the last 24 hours, not at a point to consider extubation. CV: RV function has improved as judged by PA catheter data. Continue with inotropic support . Pressor support requirement decreased. Would maintain volume status negative as tolerated. FEK: Acute on chronic renal insufficiency. Administering lasix to assist with volume status, as well as to assist with hyperkalemia. Creatinine worsening. Anticipate that renal function will improve over the near future. If not able to control potassium would initiate CVVH - seemingly less likely to be needed. ENDOCRINE: High requirement for insulin that is decreasing. GI: Will likely need nutrition support. Patient seen and examined. Hayden Russo is a 47 y.o. male has issues that include: Active Hospital Problems Diagnosis S/P CABG x 3 Respiratory failure with hypoxia Class 3 severe obesity in adult CKD (chronic kidney disease) DONAL (acute kidney injury) CAD (coronary artery disease) Diabetes mellitus Hypertension Resolved Hospital Problems No resolved problems to display. Active Non-Hospital Problems Diagnosis STEMI (ST elevation myocardial infarction) Acute ST elevation myocardial infarction (STEMI) of inferior wall Cardiac Catheterization/ PCI (STEMI presentation) 10/12/18: Conclusions: * Three vessel coronary artery disease (LAD, LCX and RCA) * Elevated left ventricular end diastolic pressure * Successful stent insertion of the distal RCA lesion * Successful stent insertion of the mid LCX lesion EXAM: Temp: [37.4 ??C (99.3 ??F)-37.7 ??C (99.9 ??F)] Heart Rate: [63-80] Resp: [12-17] BP: -- SpO2: [95 %-100 %] Heart Rate from SpO2: -- Physical Exam Constitutional: Appearance: He is obese. Interventions: He is sedated and intubated. Cardiovascular: Rate and Rhythm: Normal rate. Pulmonary: Effort: He is intubated. Breath sounds: Normal breath sounds. Body mass index is 38.43 kg/m??. IS PATIENT CRITICALLY ILL ? Is there a high potential of sudden, clinically significant, or life threatening deterioration? Yes Is there a need for direct personal assessment and management to treat/prevent multiple vital organfailure/deterioration? Yes PATIENT IS CRITICALLY ILL WITH THESE DIAGNOSES BEING MANAGED: Congestive Heart Failure Other:right heart Hyperkalemia Hypotension Arterial Renal Disease/Failure Acute Chronic Kidney Disease, stage 3 Respiratory Failure Acute with hypoxia Acute with hypercapnia I personally performed 45 minutes of aggregate critical care time exclusive of procedures and teaching. This includes time spent during direct patient evaluation and reassessment, interpreting diagnostic tests, directing life and/or organ supporting interventions and documentation on the unit. Timenoted does not include overlapping time with other physicians or advanced practice providers. * Devin Franks RN - 11/02/2023 7:38 PM EDT OUTCOME EVALUATION NOTE: OUTCOME SUMMARY: Weaned from sedation; following commands & interactive, Pupils equal & reactive. SpO2 in mid-80's% at beginning of shift; FiO2 increased to 100% from 65%. Copious secretions from ETT & oropharynx. pO2's remained low; diagnostic CT chest & Bronchoscopy; re-sedated for these diagnostics. Inotropes & Vasopressors per APR order. Abx per APR order. Amio for AF RVR with HR in 170's;returned to NSR. Nitric started with significant improvement in pO2; FiO2 down to 60% by end of shift. Remained on 20mg/hr Lasix gtt; net negative 1 liter since 07:00. * Kita Gorman APRN - 11/02/2023 9:55 AM EDT Original consult completed: 10/31/2023 Patient Interview & Updates Overall insulin needs have reduced. Ongoing acidosis concerning for DKA in setting of SGLT-2i - BHOB negative. Team talked to , we verified he was taking farxiga up until day of surgery, and has note been on ozempic since May. Discussed with Ambrocio today as well as needing to use insulin for optimal healing post discharge -he nods yes, is still intubated Objective Temp: [37.5 ??C (99.5 ??F)-38.6 ??C (101.5 ??F)] Heart Rate: [85-112] Resp: [14-28] BP: -- SpO2: [88 %-96 %] Heart Rate from SpO2: -- Current Regimen Insulin drip at 3 units an hour Recent Glucose Levels Recent Labs 11/02/23 0634 11/02/23 0530 11/02/23 0402 11/02/23 0210 11/01/23 2354 11/01/23 2201 11/01/23 2057 11/01/23 1942 11/01/23 1820 11/01/23 1734 11/01/23 1504 11/01/23 1302 POCGLU 122 112 111 118 124 121 128 121 135 127 167 161 ASSESSMENT Hayden Russo is a 47 y.o. male from [place], [place], with PMH significant for ASCVD-CAD (2019 STEMI w/PCI - RCA stent, then occluded and re-stented 05/2023), CKD (eGFR 33), NIDDM2 poorly controlled (A1c 11.2% 05/2023), who was admitted on 10/30/2023 currently being treated for re-occlusion of stents, now s/p 10/29 CABG X3. Ambrocio has chronic poor DM control and insulin requiring not dependant prior to surgery. He was usingbasal/bolus insulin, and based on SureScripts, likely taking ~100u/day total, which is consistent with weight-based estimates. PLAN Lantus:suggest starting 50 units daily at 6 PM and continue insulin drip protocol When ready to come off insulin drip if status improves-use moderate correction q 4 hours and do NOTstart this change until at least 3 hours after first dose of Lantus Lispro 1:8 insulin to carbohydrate ratio if starts eating 40minutes of this 50minute visit was spent with the patient in counseling on diabetes and treatmentplan, reviewing all glucose and insulin data as well as relevant laboratory results with the patient, and coordination of care on the inpatient unit including nursing and primary team. * Natalia Moulton PA - 11/02/2023 9:02 AM EDT Cardiac Surgery Progress Note Hayden Russo is a 47 y.o. male with CAD who is 3 Days Post-Op CABGx3. PMH of inferior STEMI s/p PCI, IDDM2, HTN, HLD, CKD, former smoker. 24h Events: Ongoing diuresis w lasix gtt, -780/d Epi/vaso weaned to off Remains on mil 0.125, on/off low dose levo K normalized, last check 3.9 Insulin requirements decreasing, DM following Tolerating PS, last abg 7.37 / 39 / 65 on 65% 12/01 S: Intubated and lightly sedated O: Temp: [37.5 ??C (99.5 ??F)-38.6 ??C (101.5 ??F)] Heart Rate: [85-112] Resp: [14-28] BP: -- SpO2: [88 %-96 %] Heart Rate from SpO2: -- Hemodynamics: CVP low teens / PA 40s/20s / CI 3.1 Drips: Mil 0.125 Levo 2 Vaso OFF Epi OFF Other Insulin 3U/h Fent 50 / prop 20 Vent settings: PS 65% 12/01 10/31 0701 - 11/01 0700 In: 2160.5 [I.V.:1680.5] Out: 2845 [Urine:2445] Net +-780/d Admit weight: 128.91 kg Current weight: Weight: 133.9 kg (295 lb 3.1 oz) Physical Exam: General: intubated and lightly sedated Neuro: intubated and lightly sedated Lungs: mech breath sounds b/l Heart: sinus low 100s on tele Abdomen: soft, ntnd Ext: wwp, 1-2+ edema Incisions: sternotomy incision, saphenectomy site SAMUEL/CDI Tubes/Lines/Drains: RIJ, [place], TPW, Todd Assessment/Plan: 47 y.o. male 3 Days Post-Op CABGx3 S/p CABGx3 RV dysfunction Post operative respiratory failure ASA 81 Plavix Lipitor 80 Cont lasix gtt Wean levo as able Vent wean as able Repeat CXR SQH, SCDs for DVT ppx Acute on chronic renal insufficiency Hyperkalemia (resolved) Daily BMP Monitor UOP HTN Holding home losartan, coreg T2DM Recent A1c 11.2, repeat 9.5 Cont insulin gtt DM consult, appreciate recs Dispo: CVCC, full code Discussed with attending surgeon on rounds this morning. GLENIS Rodríguez 11/02/2023 Between the hours of 1800 - 0600 and on the weekends please page [phone]. * Renata Britton [facility] - 11/02/2023 8:45 AM EDT Illness Severity: Watcher AMV Protocol: Yes SBT Protocol: Yes SBT: Not performed/Excluded: Paralytic medication in use Vent Settings: Ventilator Mode: PS/CPAP PEEP Set: 10 FiO2: 65% PSV: 12 Ventilator Measurements: Resp: 23 Vt Spontaneous: 599 Ve: 15 SpO2: 94 % EtCO2: 35 mmHg Airway: 8.0 @ 25 cm at the Teeth. Skin Integrity: WDL Assessment / Events / Plan of the Day: Received Pt on above settings. Pt having desaturations. Suctioned a large amount of thick dang secretions that did not resolve the desaturation. Increased FiO2 to 70% and then to 100% per team. Order CXR. No changes made to settings at this time. Pt remains on 5ppm. Will continue to monitor and support as tolerated. Renata Britton RCP * Genaro Goins RCP - 11/02/2023 6:30 AM EDT Illness Severity \[id number]\Watcher Respiratory Modalities: O2 Device: Ventilator PS/CPAP 12/+10, 65 % Airway: 8.0 @ 25 Teeth Patient Summary Admitted: 10/30/2023 Age: 47 y.o. Code Status: FULL. HPI: CABG x3, EF about 45% & moderate RV dysfunction PMHx: severe atherosclerotic coronary disease, DM, R Coronary STEMI s/p PCI + stent (found to be occluded and reopened with more stents), HTN, HLD, CKD, former smoke Events w/ date: 10/31- Pt remains on VC- Weaned to PS Pt received on settings shown above, no changes made overnight. No SBT performed due to peep/increased fio2. Action List Medications/ACT: Albuterol MDI Q4 * Janie Smith MD - 11/01/2023 7:03 PM EDT CRITICAL CARE ATTENDING PROGRESS NOTE ASSESSMENT, MANAGEMENT, and DECISION MAKING: NEURO: Continue with sedation with propofol, analgesia with intravenous opioid. Precedex may be helpful. RESP: Hypoxic respiratory failure most likely related to combination of atelectasis and inflammation. PEEP adjustment has helped, however balancing this against the concerns for right heart function.Diuresis may be beneficial if tolerated. Has improved over the last 24 hours, not at a point to consider extubation. CV: RV function has improved as judged by PA catheter data. Continue with inotropic support . Pressor support requirement decreased. Would maintain volume status negative as tolerated. FEK: Acute on chronic renal insufficiency. Administering lasix to assist with volume status, as well as to assist with hyperkalemia. Creatinine worsening. Anticipate that renal function will improve over the near future. If not able to control potassium would initiate CVVH - seemingly less likely to be needed. ENDOCRINE: High requirement for insulin that is decreasing. Patient seen and examined. Hayden Russo is a 47 y.o. male has issues that include: Active Hospital Problems Diagnosis S/P CABG x 3 Respiratory failure with hypoxia Class 3 severe obesity in adult CKD (chronic kidney disease) DONAL (acute kidney injury) CAD (coronary artery disease) Diabetes mellitus Hypertension Resolved Hospital Problems No resolved problems to display. Active Non-Hospital Problems Diagnosis STEMI (ST elevation myocardial infarction) Acute ST elevation myocardial infarction (STEMI) of inferior wall Cardiac Catheterization/ PCI (STEMI presentation) 10/12/18: Conclusions: * Three vessel coronary artery disease (LAD, LCX and RCA) * Elevated left ventricular end diastolic pressure * Successful stent insertion of the distal RCA lesion * Successful stent insertion of the mid LCX lesion EXAM: Temp: [37.4 ??C (99.3 ??F)-38.2 ??C (100.8 ??F)] Heart Rate: [85-109] Resp: [14-27] BP: -- SpO2: [90 %-96 %] Heart Rate from SpO2: -- Physical Exam Constitutional: Appearance: He is obese. Interventions: He is sedated and intubated. Cardiovascular: Rate and Rhythm: Normal rate. Pulmonary: Effort: He is intubated. Breath sounds: Normal breath sounds. Body mass index is 39.92 kg/m??. IS PATIENT CRITICALLY ILL ? Is there a high potential of sudden, clinically significant, or life threatening deterioration? Yes Is there a need for direct personal assessment and management to treat/prevent multiple vital organfailure/deterioration? Yes PATIENT IS CRITICALLY ILL WITH THESE DIAGNOSES BEING MANAGED: Congestive Heart Failure Other:right heart Hyperkalemia Hypotension Arterial Renal Disease/Failure Acute Chronic Kidney Disease, stage 3 Respiratory Failure Acute with hypoxia Acute with hypercapnia I personally performed 45 minutes of aggregate critical care time exclusive of procedures and teaching. This includes time spent during direct patient evaluation and reassessment, interpreting diagnostic tests, directing life and/or organ supporting interventions and documentation on the unit. Timenoted does not include overlapping time with other physicians or advanced practice providers. * Pooja Olvera MSW - 11/01/2023 3:40 PM EDT Family asked for PRINTED CIRCUIT DESIGNER follow up phone call on 11/02/2023 as they are working. PLAN Will put consult on covering PRINTED CIRCUIT DESIGNER list for 11/02/2023 as this typewriter operator automatic is not scheduled on this date. Pooja ZHU,SUMO WRESTLER [phone] * Michelle Pretty APRN - 11/01/2023 10:15 AM EDT Glucose Management Team Inpatient Progress Note HPI Hayden Russo is a 47 y.o. male from [place], [place], with PMH significant for ASCVD-CAD (2019 STEMI w/PCI - RCA stent, then occluded and re-stented 05/2023), CKD (eGFR 33), IDDM2 poorly controlled (A1c 11.2% 05/2023), who was admitted on 10/30/2023 currently being treated for re-occlusion of stents, now s/p 10/29 CABG X3. Original consult completed: 10/31/2023 Patient Interview & Updates Overall insulin needs have reduced. Ongoing acidosis concerning for DKA in setting of SGLT-2i - BHOB negative. Team talked to , we verified he was taking farxiga up until day of surgery, and has note been on ozempic since May. Objective Temp: [37.4 ??C (99.3 ??F)-38.1 ??C (100.6 ??F)] Heart Rate: [88-109] Resp: [15-25] BP: -- SpO2: [93 %-96 %] Heart Rate from SpO2: -- Wt Readings from Last 3 Encounters: 11/01/23 126.2 kg (278 lb 3.5 oz) 09/22/23 123.3 kg (271 lb 14.4 oz) 09/12/23 122.1 kg (269 lb 3.2 oz) Current Regimen from Yesterday Continue Regular insulin titratable drip - rate last 8 hours range 5.5-9u/hr (73u in 12hrs) Continue Regular insulin boluses X1 in last 24s - 8u Monitoring: BG q 1 hrs Diet: NPO Lab: Recommend updated A1c Relevant Meds: Epinephrine in D5% (10/29-present); Milrinone in D5% (10/29-present); Norepinephrine (10/30 2355-present); Vasopressin (10/30-present) Prior: 10/29 1810 - D10 w/10u Regular insulin for hyperkalemia; Norepinephrine in D5% 10/29-0003 10/30); TDD: Today: 73u drip in last 12 hrs, 8u bolus - ~81u last 12hrs Recent Glucose Levels Recent Labs 11/01/23 1012 11/01/23 0919 11/01/23 0702 11/01/23 0559 11/01/23 0503 11/01/23 0259 11/01/23 0201 11/01/23 0138 11/01/23 0103 10/31/23 2351 10/31/23 2300 10/31/23 2204 POCGLU 194 224* 211* 209* 263* 218* 245* 235* 270* 212* 169 163 ASSESSMENT Hayden Russo is a 47 y.o. years old male with PMH significant for IDDM2 (Last A1C of 11.2% 05/2023) who was admitted on 10/30/2023 for re-occlusion of stents, now s/p 10/29 CABG X3. Diabetes poorlycontrolled and complicated by acute illness. Currently variable blood glucose levels while hospitalized requiring adjustment of insulin regimen and DM medications. Ambrocio has chronic poor DM control and insulin dependant prior to surgery. He was using basal/bolus insulin, and based on [employer], likely taking ~100u/day total, which is consistent with weight-based estimates. Unclear if he is on Ozempic, which is also on his list. [employer] also notes [id number] QD for >1year with recent dispense dates, but no note of stopping it 3 days prior to surgery to avoid Euglycemic DKA risk. Anion gap has continued to be elevated (10/30 12, 10/31 0236 15), bicarb 19, pH 7.33, with calculated serum Osm improved at 299, also in the setting of CKD. BHOB recommended, and came back negative, so other causes for his acidosis. Overall insulin needs have decreased to ~80u in the last 12 hrs, with continued multiple dextrose sources and pressors. He can continue on Regular insulin drip until more stable and extubated. The team was able to clarify that he was taking Farxiga until day of surgery (didn't stop 3 days prior), and off ozempic since May. Once he's able to start taking PO, recommend starting carb-based meal insulin to avoid reactive insulin drip adjustments. Weight-based estimate baed on BMI 0.7u/kg/day = TDD 96u (basal ~45u, ICR 1:5g, ISF 1:15). Home basal was 50u, so until closer to transition to SQ insulin, 45u QD would be a conservative starting point. We will continue to follow along as his course evolves. Team updated with recommendations. RECOMMENDATIONS: Continue Regular insulin titratable drip Continue Regular insulin boluses When able to take PO, recommend adding Carb Controlled 60/60/75g diet and Lispro Meal-associated 1:7g (range 0-15). When ready to wean off drip: 1. Insulin Glargine dose to be given AT LEAST 2 hours prior to drips discontinuation Due to high insulin needs currently on drip with pressors and dextrose sources, dose will need to be determined closer to transition, or use weight-based dose (insulin glargine 45u QD) 2. 2 hours after insulin glargine given, BEFORE stopping drip: Drip rate must be less than 2 units/hour Glucose must be less than 200mg/dL If above criteria are met at the 2hr jg, drip can be discontinued and lispro correction insulin needs to be added (likely 1:15 >140 Q4hrs). If above criteria not met, continue the drip until criteria met to stop the drip Monitoring: BG q 1 hrs Diet: NPO Lab: Recommend BHOB to rule out SGLT-2i induced DKA Discharge Planning/intermediate diabetes care: Medications - Outpatient treatment regimen recommendations pending based on the hospital course. Home: These doses need clarification when patient able to communicate. Farxiga 10mg QD - likely restart at discharge. Insulin glargine (Basaglar) pen Humalog 20u TID w/meals No Ozempic since May - unknown reason. Monitoring BG tid ac & hs Follow-up: PCP 50 minutes were spent over the course of the day with this patient encounter including time spent in chart review and relevant lab result review, assessment of and counseling with the patient on diabetes and treatment plan, reviewing all glucose and insulin data, and coordination with the consulting service. Michelle Pretty APRN, DNP, -[facility] Inpatient Diabetes Management Team Team pager #[phone] * Renata Britton RCP - 11/01/2023 8:05 AM EDT Illness Severity: Watcher AMV Protocol: Yes SBT Protocol: Yes SBT: Not performed/Excluded: Paralytic medication in use Vent Settings: Ventilator Mode: VC Tidal Volume Set: 590 Resp Rate Set: 15 PEEP Set: 10 FiO2: 55% Ventilator Measurements: Resp: 20 Vt Exhaled: 565 PIP: 24 MAP: 14.5 Plateau Press: 27 Ve: 11.2 PEEP: 9.6 cmH20 SpO2: 93 % EtCO2: 38 mmHg Airway: 8.0 @ 25 cm at the Teeth. Skin Integrity: WDL Assessment / Events / Plan of the Day: Received Pt on above settings. Pt tolerating well with SpO2 >92%. Weaned FiO2 to 50%. Pt tolerating with SpO2 remaining above goal. Pt is intermittently biting on ETT. Per team weaned FiO2 to maintain SpO2 goal of 92%. Weaned to 35%. Weaned Pt to PS and reduced PEEP with intentions of SBT. Placed on PS/CPAP (S) 12/+8, 40 %. Pt tolerating well With Spo2 increasing to >95%. Plan to wean PS over time to achieve SBT. Increased PS to 15 to assist with Pt VT. On PS of 12 Pt VT decreased to 5-6 mL/kg. On 15 PS Pt VT returned to 7-8 mL/kg and RR decreased to lower 20s. Will continue to monitor and support as tolerated. Renata Britton RCP * Natalia Moulton PA - 11/01/2023 8:04 AM EDT Cardiac Surgery Progress Note Hayden Russo is a 47 y.o. male with CAD who is 2 Days Post-Op CABGx3. PMH of inferior STEMI s/p PCI, IDDM2, HTN, HLD, CKD, former smoker. 24h Events: CTs removed Started plavix Began diuresis with lasix gtt, increased to 15/h overnight, ~net even on the day Pressors weaned, remains on epi 4 / mil .125 / levo 4 / vaso .02 K 5.7, treated, recheck 4.9 Remains intubated, FiO2 slightly weaned, VC 50% 10/ Last ABG 7.39 / 39 / 79 S: Intubated and sedated O: Temp: [37.3 ??C (99.1 ??F)-38.1 ??C (100.6 ??F)] Heart Rate: [88-101] Resp: [16-25] BP: (131)/(73) SpO2: [93 %-96 %] Heart Rate from SpO2: -- Hemodynamics: CVP mid teens / PA 30s/20s / CI 2.9 Drips: Levo 4 Vaso 0.02 Epi 4 Mil 0.125 Other Insulin 8.5U/h Fent 100 / prop 40 Vent settings: SIMV 60% 09/29 / RR 16 / TV 590 10/30 0701 - 10/31 0700 In: 3673.6 [I.V.:3453.6] Out: 3570 [Urine:2940] Admit weight: 128.91 kg Current weight: Weight: 126.2 kg (278 lb 3.5 oz) Physical Exam: General: intubated and sedated Neuro: intubated and sedated Lungs: mech breath sounds b/l Heart: sinus 90s on tele Abdomen: soft, ntnd Ext: wwp, 1-2+ edema Incisions: sternotomy incision, saphenectomy site SAMUEL/CDI Tubes/Lines/Drains: RIJ, [place], TPW, Todd Assessment/Plan: 47 y.o. male 2 Days Post-Op CABGx3 S/p CABGx3 RV dysfunction Post operative respiratory failure ASA 81 Plavix Lipitor 80 Cont lasix gtt Epi to 2 Wean pressors as able Vent wean as able Acute on chronic renal insufficiency Hyperkalemia Trend K Q4h, treat prn Noon BMP Monitor UOP HTN Holding home losartan, coreg T2DM Recent A1c 11.2, repeat 9.5 Cont insulin gtt DM consult, appreciate recs Dispo: CVCC, full code Discussed with attending surgeon on rounds this morning. GLENIS Rodríguez 11/01/2023 Between the hours of 1800 - 0600 and on the weekends please page [phone]. * Genaro Goins, [facility] - 11/01/2023 5:45 AM EDT Illness Severity Watcher Respiratory Modalities:(S) VC 590/+10, x15 60 % (8 ml/kg) Airway: 8.0 @ 25 Teeth Patient Summary Admitted: 10/30/2023 Age: 47 y.o. Code Status: FULL. HPI: CABG x3, EF about 45% & moderate RV dysfunction PMHx: severe atherosclerotic coronary disease, DM, R Coronary STEMI s/p PCI + stent (found to be occluded and reopened with more stents), HTN, HLD, CKD, former smoke Events w/ date: 10/29: Increasing acidotic state, not tolerating PSV, No SBT performed 10/30: Increased PEEP to 10 and increased RR to 20 d/t acidosis. Recruitment maneuver performed x2. Pt received on settings shown above, no changes made overnight, attempts to place pt in PSV were unsuccessful to SBT. Pt left on 60% fio2 per ABG results overnight. ABG @ 1999: 7.39 37 68 22 ABG @ : 7.39 35 72 21 ABG @ 0407: 7.38 39 79 22 Action List Medications/ACT: Albuterol MDI Q4 * Janie Smith MD - 10/31/2023 1:24 PM EDT CRITICAL CARE ATTENDING PROGRESS NOTE ASSESSMENT, MANAGEMENT, and DECISION MAKING: NEURO: Continue with sedation with propofol, analgesia with intravenous opioid. RESP: Hypoxic respiratory failure likely related to combination of atelectasis and inflammation. PEEP adjustment has helped, however balancing this against the concerns for right heart function. Diuresis may be beneficial if tolerated. CV: Demonstrated decrease in RV systolic function, improved yesterday with inotropic support. POCUSagain revealing same. Continue with inotropic support with epinephrine and milrinone. Pressor support with vasopressin and norepinephrine. Would maintain volume status negative as tolerated. FEK: Acute on chronic renal insufficiency. Administered lasix to assist with volume status, as wellas to assist with hyperkalemia. Creatinine worsening. Anticipate that renal function will improve over the near future. If not able to control potassium would initiate CVVH. ENDOCRINE: High requirement for insulin. Continue with infusion. Patient seen and examined. Hayden Russo is a 47 y.o. male has issues that include: Active Hospital Problems Diagnosis S/P CABG x 3 Class 3 severe obesity in adult CKD (chronic kidney disease) DONAL (acute kidney injury) CAD (coronary artery disease) Diabetes mellitus Hypertension Resolved Hospital Problems No resolved problems to display. Active Non-Hospital Problems Diagnosis STEMI (ST elevation myocardial infarction) Acute ST elevation myocardial infarction (STEMI) of inferior wall Cardiac Catheterization/ PCI (STEMI presentation) 10/12/18: Conclusions: * Three vessel coronary artery disease (LAD, LCX and RCA) * Elevated left ventricular end diastolic pressure * Successful stent insertion of the distal RCA lesion * Successful stent insertion of the mid LCX lesion EXAM: Temp: [34.9 ??C (94.8 ??F)-37.8 ??C (100 ??F)] Heart Rate: [79-114] Resp: [10-27] BP: (131)/(73) SpO2: [92 %-96 %] Heart Rate from SpO2: [76 bpm-114 bpm] Physical Exam Constitutional: Appearance: He is obese. Interventions: He is sedated and intubated. Cardiovascular: Rate and Rhythm: Normal rate. Pulmonary: Effort: He is intubated. Breath sounds: Normal breath sounds. Body mass index is 43.33 kg/m??. IS PATIENT CRITICALLY ILL ? Is there a high potential of sudden, clinically significant, or life threatening deterioration? Yes Is there a need for direct personal assessment and management to treat/prevent multiple vital organfailure/deterioration? Yes PATIENT IS CRITICALLY ILL WITH THESE DIAGNOSES BEING MANAGED: Congestive Heart Failure Other:right heart Hyperkalemia Hypotension Arterial Renal Disease/Failure Acute Chronic Kidney Disease, stage 3 Respiratory Failure Acute with hypoxia Acute with hypercapnia I personally performed 45 minutes of aggregate critical care time exclusive of procedures and teaching. This includes time spent during direct patient evaluation and reassessment, interpreting diagnostic tests, directing life and/or organ supporting interventions and documentation on the unit. Timenoted does not include overlapping time with other physicians or advanced practice providers. * Julianne Moore PT - 10/31/2023 12:17 PM EDT PT Note Pt remains intubated/sedated. No yet approp for PT eval. Will follow-up as approp for eval. Julianne Moore PT Pager [phone] * Natalia Moulton PA - 10/31/2023 9:03 AM EDT Cardiac Surgery Progress Note Hayden Russo is a 47 y.o. male with CAD who is 1 Day Post-Op CABGx3. PMH of inferior STEMI s/p PCI, IDDM2, HTN, HLD, CKD, former smoker. 24h Events: S/p above procedure, kept asleep overnight From OR on levo/epi/mil Increased levo requirement up to 20 with sedation, added vaso, adjusted inotropes Remains on levo 14 / vaso .06 / epi 4 / mil .125 K up to 6.8, treated, 4.8 this AM Hyperglycemia 300-400s with high insulin requirement, remains on gtt Poor oxygenation, repeat CXR largely stable with ongoing atelectasis Last ABG 7.31 / 44 / 76, P:F 127 S: Intubated and sedated O: Temp: [34.9 ??C (94.8 ??F)-37.8 ??C (100 ??F)] Heart Rate: [73-114] Resp: [10-27] BP: -- SpO2: [92 %-99 %] Heart Rate from SpO2: [73 bpm-114 bpm] Hemodynamics: CVP mid teens / PA 30s/20s / CI 2.4 Drips: Levo 14 Vaso 0.06 Epi 4 Mil 0.125 Other Insulin 24U/h Fent 75 / prop 40 Vent settings: SIMV 60% 09/29 / RR 16 / TV 590 10/29 0701 - 10/30 0700 In: 6672.2 [I.V.:4808.2] Out: 2234 [Urine:770] Med Cts 210 / 135 / 40 L pleural 130 / 35 / 10 Net +4.4 Admit weight: 128.91 kg Current weight: Weight: (!) 137 kg (302 lb) Physical Exam: General: intubated and sedated Neuro: intubated and sedated Lungs: mech breath sounds b/l Heart: sinus tach low 100s on tele Abdomen: soft, ntnd Ext: wwp, 1-2+ edema Incisions: sternotomy dressing and saphenectomy AKIN wrap c/d/i Tubes/Lines/Drains: More[place] GOULD, med Cts, L pleural CT, TPW, Todd Assessment/Plan: 47 y.o. male 1 Day Post-Op CABGx3 S/p CABGx3 ASA 81 Start Plavix Lipitor 80 Bedside echo Begin diuresis Cont inotropic support Wean levo as able Dc chest tubes Vent wean as able Hyperkalemia Trend K, treat prn HTN Holding home losartan, coreg T2DM Last A1c 11.2 Cont insulin gtt DM consult, appreciate recs Dispo: CVCC, full code Discussed with attending surgeon on rounds this morning. GLENIS Rodríguez 10/31/2023 Between the hours of 1800 - 0600 and on the weekends please page [phone]. * Renata Britton RCP - 10/31/2023 8:03 AM EDT Illness Severity: Watcher AMV Protocol: Yes SBT Protocol: Yes SBT: SBT not performed d/t hemodynamic instability and acidotic status. Vent Settings: Ventilator Mode: SIMV (VC) + PS Tidal Volume Set: 590 Resp Rate Set: 16 PEEP Set: 8 FiO2: 61 % Ventilator Measurements: Resp: 16 Vt Exhaled: 577 PIP: 31 MAP: 14.9 Plateau Press: 26 Ve: 8.9 PEEP: 8.8 cmH20 SpO2: 94 % EtCO2: 39 mmHg Airway: 8.0 @ 25 cm at the Teeth. Skin Integrity: WDL Assessment / Events / Plan of the Day: Received Pt on above settings. Pt tolerating well with SpO2 >92%. No SBT was performed overnight. Increased PEEP to 10 per team to assist with O2 and increased RR to 20 per team d/t ABG- 7.30/48/79/23. Lung recruitment maneuver performed in PS 30 of PEEP for 30 seconds x2. Pt BP dropped to MAP 64. Ptrecovered and second maneuver performed. No changes made to the settings at this time. ABG at 1557- 7.40/37/73/22.5 Will continue to monitor and support as tolerated. Renata Britton RCP * Chandler Mendez - 10/31/2023 4:30 AM EDT Respiratory Care Mechanical Ventilation Note Protocol: None SBT: Yes SPO2 Goal: Saturation Goal: > 92% Vent Mode: (S) SIMV (VC) + PS Circuit: HME Settings: Tidal Volume Set: 590 Resp. Rate Set: 16 PS Above PEEP (cm H2O): 10 Set PEEP (cm H2O): 8 Set FiO2: 60 % VT/K Inspiratory Time: 1 Sec(s) Measurements: Tidal Volume Measured Exp.: 566 Resp: 16 Peak Inspiratory Pressure: 30 Mean Airway Pressure (cm H2O): 16.4 Minute Ventilation Total Exhaled (L/min): 9.8 SpO2: 93 % ETCO2 (mmHg): 39 mmHg Airway: Size: 8.0 ETT Depth: 25 cm @ teeth. Cuff Pressure: 28 mmHg Medications: Albuterol MDI Q4 Assessment: Received pt orally intubated and mechanically ventilated on SIMV (VC) + PS. FiO2 increased to 50%. Transitioned to PSV 11/27 50% ~0020 d/t vent dyssynchrony. Switched to pressure trigger per inaccurate depiction of true RR on ventilator. ABG Jenna @ 0138: 7.30/44/65/21 PS increased to 12. FiO2 increased to 60%. ABG Drawn @ 0257: 7.28/46/77/21 Pt placed back into SIMV (VC) + PS. SBT not performed d/t hemodynamic instability and acidotic status. Team aware. Plan: Continue to manage pt on settings above unless discussed otherwise w/ team. * Mamie Mckeon RCP - 10/30/2023 5:35 PM EDT AMV Protocol: No ARDS Protocol: No CTICU Protocol: Yes SBT Protocol: Yes SBT: Failed: Decreased minute ventilation 1st time and ABG 7. 2nd SBT. Vent Settings: Ventilator Mode: SIMV (VC) + PS Tidal Volume Set: 590 Resp Rate Set: 14 PEEP Set: 8 FiO2: 41 % PSV: 15 Ventilator Measurements: Resp: 21 Vt Exhaled: 510 PIP: 24 Vt Spontaneous: MAP: 13.7 Plateau Press: Ve: 10.9 PEEP: SpO2: 93 %EtCO2: 36 mmHg Airway: 8.0 @ 25 cm at the Teeth. Skin Integrity: WDL Breath Sounds: Diminished. Secretions: None. Assessment / Events / Plan of the Day: Pt received from the OR and placed in the above Protocol. Failed SBT for not being awake enough and 2nd SBT ABG 7.. Decision made to resedate and reassess for extubation tomorrow. Mamie Mckeon RCP documented in this encounter H&P Notes * Timi Person MD - 10/30/2023 7:02 AM EDT There has been No change in the patients condition or operative plan since last visit. Timi Person MD [phone] Source Note - Timi Person MD - 10/30/2023 7:01 AM EDT Patient Name: Hayden Russo Patient Age: 47 y.o. Birthdate: 1975 Admit date: 10/30/2023 Attending Physician: Timi Person MD Mr. Russo is a 47-year-old man whose history dates back to 2018 when he presented with a right coronary STEMI that was treated with primary PCI and intracoronary stent placement. He then returned with recurrent chest pain earlier this year, cardiac cath showed complete occlusion of his stented right coronary which was reopened with a second layer of stents. He represented for completion revascularization in July and was found to have again closure of his right coronary system which was reopenedand he was referred for open revascularization. In aggregate his current angiogram demonstrates several layers of stent in his right coronary with a small but potentially graftable PDA. His LAD has a50% long mid lesion and there is a significant lesion at the and 80% mid circumflex with a graftable marginal branch. His last echo showed a systolic function of about 50% with inferior wall hypokinesis. His symptoms are those of profound fatigue and exercise chest pain. His past medical history is importantly positive for poorly treated hypertension, he is also relatively poorly controlled diabetic with a last A1c that I saw of 11.2. He has chronic renal insufficiency with a creatinine of about 2-1/2-3. He used tobacco up until May of this year, he has not had a prior CVA or TIA. He has noknown hepatic insufficiency. His past surgical history is unremarkable. On examination He has a blood pressure 160/80, his pulse is in the 80s at sinus by palpation. His HEENT examination is unremarkable, there is no scleral icterus or arcus senilis. He does not have cervical bruits or masses. There are no clear cardiac murmurs. His lower extremities are free of obvious edema or gross varicosities. In summary Mr. Russo has severe, premature atherosclerotic coronary disease and is diabetic. I agree that he may benefit from open revascularization, the plan would be to graft to his PDA marginal and LAD. He is at higher risk due to his comorbidities particularly that of renal insufficiency and a BMI of 39. The potential risks and anticipated benefits including the possibility of hemodialysis dependent renal failure reviewed with Mr. Russo. He does wish to proceed and has given written informed consent. Timi Person MD [phone] * Timi Person MD - 10/30/2023 7:01 AM EDT Patient Name: Hayden Russo Patient Age: 47 y.o. Birthdate: 1975 Admit date: 10/30/2023 Attending Physician: Timi Person MD Mr. Russo is a 47-year-old man whose history dates back to 2019 when he presented with a right coronary STEMI that was treated with primary PCI and intracoronary stent placement. He then returned with recurrent chest pain earlier this year, cardiac cath showed complete occlusion of his stented right coronary which was reopened with a second layer of stents. He represented for completion revascularization in July and was found to have again closure of his right coronary system which was reopenedand he was referred for open revascularization. In aggregate his current angiogram demonstrates several layers of stent in his right coronary with a small but potentially graftable PDA. His LAD has a50% long mid lesion and there is a significant lesion at the and 80% mid circumflex with a graftable marginal branch. His last echo showed a systolic function of about 50% with inferior wall hypokinesis. His symptoms are those of profound fatigue and exercise chest pain. His past medical history is importantly positive for poorly treated hypertension, he is also relatively poorly controlled diabetic with a last A1c that I saw of 11.2. He has chronic renal insufficiency with a creatinine of about 2-1/2-3. He used tobacco up until May of this year, he has not had a prior CVA or TIA. He has noknown hepatic insufficiency. His past surgical history is unremarkable. On examination He has a blood pressure 160/80, his pulse is in the 80s at sinus by palpation. His HEENT examination is unremarkable, there is no scleral icterus or arcus senilis. He does not have cervical bruits or masses. There are no clear cardiac murmurs. His lower extremities are free of obvious edema or gross varicosities. In summary Mr. Russo has severe, premature atherosclerotic coronary disease and is diabetic. I agree that he may benefit from open revascularization, the plan would be to graft to his PDA marginal and LAD. He is at higher risk due to his comorbidities particularly that of renal insufficiency and a BMI of 39. The potential risks and anticipated benefits including the possibility of hemodialysis dependent renal failure reviewed with Mr. Russo. He does wish to proceed and has given written informed consent. Timi Person MD [phone] documented in this encounter Procedure Notes * Steven Garcia MD - 11/05/2023 11:17 AM EDT Central Line Placement Procedure Note Items highlighted in red are State Reported items for central line compliance documentation. Procedure Diagnosis: Acute renal failure Risks and Benefits reviewed: yes. Informed Consent obtained: yes Reason for insertion: new central line Time out performed and documented: yes Hand Hygiene performed: Yes Skin prepped with: chlorhexidine Skin prep agent completely dry at time of first puncture: yes 3 ml of 1% lidocaine was used for local anesthesia. Sterile drape: large sterile drape used Mask/eye shield: mask/eye shield used Large sterile gown: large sterile gown used Sterile gloves: sterile gloves used Cap worn: cap worn Ultrasound guidance used for insertion: Yes Kit type used: An 18 Ga. X 2.5 inch needle was placed in vein after blood return identified. Guidedby a 0.035 inch diameter guide wire, a 12 , 3 lumen, 20 cm catheter was inserted using the Seldinger Technique. Catheter type: CVL Tunneled/Non Tunneled: non tunneled Insertion Site: jugular (internal) Insertion Side: right Number of attempts: 1 Insertion successful: Yes Catheter sutured at the skin at: 20 cm . Sterile dressing: Chlorhexidine Tegaderm Findings: Patient tolerated procedure well., Wave form was appropriate., Blood returned appropriately. Complications: No Complications. Chest X-ray ordered: yes Patient location at time of insertion: CVCC Procedure Comments: New HD access via RIJ with a new stick. Procedure performed by He Styles PA-C under my direct supervision. STEVEN GARCIA MD * Janie Smith MD - 11/02/2023 6:37 PM EDT Bronchoscopy Procedure Note Operation: Flexible fiberoptic bronchoscopy, diagnostic with lavage Findings: see below Specimen: BAL x 2 Estimated Blood Loss: none The scope was passed into the trachea. Careful inspection of the tracheal lumen was accomplished. The scope was sequentially passed into the left main and then left upper and lower bronchi and segmental bronchi. BAL was done and there were two specimens. The scope was then withdrawn and advanced into the right main bronchus and then into the RUL, RML, and RLL bronchi and segmental bronchi. Endobronchial findings: normal Trachea: thick dang secretions, suctioned to clear Steve: Normal mucosa Right main bronchus: Normal mucosa Right upper lobe bronchus: Normal mucosa Right middle lobe bronchus: thick dang secretions, suctioned to clear Right lower lobe bronchus: thick dang secretions, suctioned to clear Left main bronchus: Normal mucosa Left upper lobe bronchus: Normal mucosa Left lower lobe bronchus: thick dang secretions, suctioned to clear documented in this encounter Miscellaneous Notes * Care Management Discharge - Katharina Natarajan RN - 11/18/2023 11:44 AM EDT CARE MANAGEMENT FINAL DISCHARGE NOTE Chart reviewed, care reviewed with primary team and at interdisciplinary rounds. Patient is medically ready for discharge to home with services. Needs for Transition of Care: Plan for discharge is: Home w/ Services Outpatient Agency/Support Group Needs: Homecare agency Home Health Services: Registered Nurse, Physical Therapy, Occupational Therapy Agency Referrals & Follow-up Care: Contact information for follow-up [address] [address] Cardiac Rehab, [facility] [address] [place] [address] Transportation: family or friend will provide Wheelchair van/Ambulance? 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 Current Living Arrangements: home/apartment/condo. Accessibility Concerns:apartment on the second floor with FOS. Current Functional Ability: Assistive Person and Equipment DME used at home: none, other (see comments) (they have walker and cane) DME Needed at Discharge: none - patient already has a FWW and cane Patient is insured through: Primary Insurance: [employer] [facility] Payor: [facility] / Plan: [facility] / Product Type: *No Product type* / Secondary Insurance: N/A Prescription Coverage: Yes This plan was formulated with input from patient, and team. All are in agreement with plan. * Consult Note - Terri Avina RN - 11/18/2023 10:42 AM EDTSummary: VAS Rounding During VAS Purposeful Rounding, an assessment of your patient's venous access was performed fby theVascular Access Service. The following tasks were performed if needed and communicated to the bedside RN Choose all that apply: [] PIV(s) checked for patency if daily need for flush needs to be performed [] CVAD was checked for patency if daily flush needs to be performed [] IV tubing clamped or capped if needed [] Visual inspection of your patient's central line dressing integrity [x] Review of indications for vascular access [] A photo was taken of your patient's central line [x] Visual inspection of your patient's IV dressing integrity While rounding an intervention was needed and [...] changed if needed (either PRN or weekly) * Plan of Care - Hector Hair RN - 11/18/2023 5:12 AM EDT OUTCOME EVALUATION NOTE: OUTCOME SUMMARY: A&Ox4, VSS, on RA. PT denies CP, pain, and SOB. Pt endorsed headache, timed medications administered see MAR. Spouse at bedside. Continuing to actively monitor. PLAN MOVING FORWARD: Q4 VS D/C planning as appropriate INDIVIDUALIZED FALL PREVENTION INTERVENTIONS: Patient-specific fall risk factors per assessment: [current deficits]: unfamiliar environment, wires/cords/lines Assistance [level of assistance required for transfers and ambulation]: SBA Supervision [direct monitoring required during toileting and ADLs]: eyes on w/walker Surveillance [continuous indirect monitoring]: Telemetry, pulse ox Patient-specific fall prevention interventions for sensory deficits provided, if applicable: Yes. Lighting adjusted, clutter free environment, non-slips on, call tenorio within reach and calls as appropriate. CPG GOAL OUTCOME EVALUATION: Ongoing Problem: Fall Injury Risk Goal: Absence of Fall and Fall-Related Injury Outcome: Ongoing (Interventions Implemented as Appropriate) Problem: Adult Inpatient Plan of Care Goal: [...] Outcome: Ongoing (Interventions Implemented as Appropriate) Problem: Activity Intolerance (Cardiovascular Surgery) Goal: Improved Activity Tolerance Outcome: Ongoing (Interventions Implemented as Appropriate) Problem: Adjustment to Surgery (Cardiovascular Surgery) Goal: Optimal Coping with Heart Surgery Outcome: Ongoing (Interventions Implemented as Appropriate) Problem: Bleeding (Cardiovascular Surgery) Goal: Absence of Bleeding Outcome: Ongoing (Interventions Implemented as Appropriate) Problem: Bowel Elimination Impaired (Cardiovascular Surgery) Goal: Effective Bowel Elimination Outcome: Ongoing (Interventions Implemented as Appropriate) Problem: Cardiac Function Impaired (Cardiovascular Surgery) Goal: Effective Cardiac Function Outcome: Ongoing (Interventions Implemented as Appropriate) Problem: Cerebral Tissue Perfusion Risk (Cardiovascular Surgery) Goal: Effective Cerebral Perfusion Outcome: Ongoing (Interventions Implemented as Appropriate) Problem: Fluid Imbalance (Cardiovascular Surgery) Goal: Fluid Balance Outcome: Ongoing (Interventions Implemented as Appropriate) Problem: Infection (Cardiovascular Surgery) Goal: Absence of Infection Signs and Symptoms Outcome: Ongoing (Interventions Implemented as Appropriate) Problem: Ongoing Anesthesia Effects (Cardiovascular Surgery) Goal: Anesthesia/Sedation Recovery Outcome: Ongoing (Interventions Implemented as Appropriate) Problem: Pain (Cardiovascular Surgery) Goal: Acceptable Pain Control Outcome: Ongoing (Interventions Implemented as Appropriate) Problem: Postoperative Nausea and Vomiting (Cardiovascular Surgery) Goal: Nausea and Vomiting Relief Outcome: Ongoing (Interventions Implemented as Appropriate) Problem: Postoperative Urinary Retention (Cardiovascular Surgery) Goal: Effective Urinary Elimination Outcome: Ongoing (Interventions Implemented as Appropriate) Problem: Respiratory Compromise (Cardiovascular Surgery) Goal: Effective Oxygenation and Ventilation Outcome: Ongoing (Interventions Implemented as Appropriate) Problem: Restraint, Nonbehavioral (Nonviolent) Goal: Discontinuation Criteria Achieved Outcome: Ongoing (Interventions Implemented as Appropriate) Problem: Dysrhythmia Goal: Normalized Cardiac Rhythm Outcome: Ongoing (Interventions Implemented as Appropriate) Problem: Pain Acute Goal: Acceptable Pain Control and Functional Ability Outcome: Ongoing (Interventions Implemented as Appropriate) * Care Management - Yovanny Scott RN - 11/17/2023 4:24 PM EDT OFFICE OF CARE MANAGEMENT PROGRESS NOTE LOS: Hospital Day 18 days Chart reviewed, care reviewed with primary team and at interdisciplinary rounds. 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 Current Living Arrangements: home/apartment/condo. Accessibility Concerns: apartment on the second floor with FOS. Current Functional Ability: Completely Dependent DME used at home: none, other (see comments) (they have walker and cane) DME Needed at Discharge: No Patient is insured through: Primary Insurance: [employer] [place] Payor: [employer] [facility] / [facility] / Product Type: *No Product type* / Secondary Insurance: N/A Last Physical Therapy Recommendation: home with home health, home with supervision with to be determined (May benefit from FWW) Last Occupational Therapy Recommendation: home with supervision, home with home health with to be determined Plan for discharge is: Pending Hospital Course and PT/OT Recommendations Outpatient Agency/Support Group Needs: Homecare agency Agency Choices: [facility] Referrals: [facility] Agency - [place] [address] and Transportation: family or friend will provide Barriers to discharge: None anticipated Psychosocial: Adjustment to diagnosis/illness Supports: Caregiver support Financial / Legal: Financial/insurance ICU Needs: none / ready for downgrade Plan going forward: Pt remains hospitalized 18 Days Post-Op CABGx3. D/C plan pending clinical course and PT/OT recs, but anticipating d/c home with home health services when MR. RN CM will continue to monitor for d/c needs. Anticipated Date of Discharge: 11/19/2023 * Consult Note - Cynyd Ambrose RN - 11/17/2023 11:04 AM EDT [facility] Hayden Russo was seen today regarding participation in the outpatient Phase 2 Cardiac Rehabilitation at [facility]. The patient agrees to a referral to this program. The referral will be sent at discharge and the patient should be contacted by the Program within 1-2 weeks from discharge. * Consult Note - Kyra Isabel RN - 11/17/2023 10:12 AM EDT Images from the original note were not included. Certified Wound Care Nurse Note Situation: Follow up to see Hayden Russo for purple area on the left buttock. Background: eD-H notes reviewed for history, admitting diagnosis and active problem list. Per Cardiology note: Hayden Russo is a 47 y.o. male with CAD who is 18 Days Post-Op CABGx3. PMH of inferior STEMI s/p PCI, IDDM2, HTN, HLD, CKD, former smoker. Labs Nutritional Status Wt Readings from Last 1 Encounters: 11/17/23 118.3 kg (260 lb 14.4 oz) Body mass index is 37.44 kg/m??. Duane Score: 22 Wound Assessment and Care Provided: Patient seen this morning in room 491-A He was ambulating from the bathroom to the chair with staff. He states his butt used to hurt but doesn't anymore. The area is now smaller and red, blanches and no pain upon palpation. Zinc Oxide Paste in use. Buttocks 11/09: Buttocks 11/16: Current bed: [facility] Assessment: The purple area on the left buttock is now bed, somewhat scattered and not over a bony prominence. Red areas brielle, dry desquamation due to use of Zinc Oxide Paste, area is resolving. Wound Care Recommendations: Mepilex Border Sacrum dressing to sacrum-Assess beneath the dressing daily and reapply. Change every 3 days and PRN: 1. Cleanse wound with dermal wound cleanser and gauze. 2. Apply Mepilex Border Sacrum dressing. Note: If the Mepilex Border Sacrum is getting soiled more than twice a shift, omit the dressing andapply zinc oxide paste twice daily and as needed. Refer to adult/pediatric pressure ulcer prevention job aid in the clinical policy library highlighting the following points: Mobility: Turn and reposition every 2 hours and document in ED-H, side to side only. Place a pillow above and below sacral area while in bed to off load pressure to the sacrum Offload pressure from heels by placing pillows lengthwise beneath legs while in bed. Offload pressure from heels by adjusting length of foot of bed. Activity: Implement reminder system for repositioning every two hours while in bed Limit time OOB to the chair to 2 hour intervals. (Including placing bed in chair position, or having HOB higher than 30 degrees) Use a Hövding chair cushion beneath patient at all times while in the chair. Reinforce teaching to shift weight every 15 minutes while in the chair. This can be done by shifting weight side to side to off load pressure to ischial tuberosities. Place a pillow at the lumbar spine to off load pressure to the sacral spine. Wound Care Team will follow up peripherally. Discussed plan with: RN: Please contact KYRA ISABEL RN on eDH secure chat or the wound care team on pager [phone] with skinand wound care concerns or questions. * Plan of Care - Hector Hair RN - 11/17/2023 4:46 AM EDT OUTCOME EVALUATION NOTE: OUTCOME SUMMARY: A&Ox4, VSS (HTN, PRN medications administered), on RA. Pt denies pain, CP, and SOB. PT had [id number] shift. Todd patent. Continuing to actively monitor. PLAN MOVING FORWARD: Q4 VS D/c planning as appropriate INDIVIDUALIZED FALL PREVENTION INTERVENTIONS: Patient-specific fall risk factors per assessment: [current deficits]: unfamiliar environment, wires/cords/lines Assistance [level of assistance required for transfers and ambulation]: SBA Supervision [direct monitoring required during toileting and ADLs]: Hands/eyes on w/walker Surveillance [continuous indirect monitoring]: Telemetry, pulse ox Patient-specific fall prevention interventions for sensory deficits provided, if applicable: Yes. Lighting adjusted, clutter free environment, non-slips on, bed alarm set, call tenorio within reach and calls as appropriate. CPG GOAL OUTCOME EVALUATION: Ongoing Problem: Fall Injury Risk Goal: Absence of Fall and Fall-Related Injury 11/17/2023445 by Hector Hair RN Outcome: Ongoing (Interventions Implemented as Appropriate) 11/17/2023445 by Hector Hair RN Outcome: Ongoing (Interventions Implemented as Appropriate) Problem: Adult Inpatient Plan of Care Goal: Plan of Care Review 11/17/2023445 by Hector Hair RN Outcome: Ongoing (Interventions Implemented as Appropriate) 11/17/2023445 by Hector Hair RN Outcome: Ongoing (Interventions Implemented as Appropriate) Goal: Patient-Specific Goal (Individualized) 11/17/2023445 by Hector Hair RN Outcome: Ongoing (Interventions Implemented as Appropriate) 11/17/2023445 by Hector Hair RN Outcome: Ongoing (Interventions Implemented as Appropriate) Goal: Absence of Hospital-Acquired Illness or Injury 11/17/2023445 by Hector Hair, DELL Outcome: Ongoing (Interventions Implemented as Appropriate) 11/17/2023445 by Hector Hair RN Outcome: Ongoing (Interventions Implemented as Appropriate) Goal: Optimal Comfort and Wellbeing 11/17/2023445 by Hector Hair RN Outcome: Ongoing (Interventions Implemented as Appropriate) 11/17/2023445 by Hector Hair RN Outcome: Ongoing (Interventions Implemented as Appropriate) Goal: Readiness for Transition of Care 11/17/2023445 by Hector Hair RN Outcome: Ongoing (Interventions Implemented as Appropriate) 11/17/2023445 by Hector Hair RN Outcome: Ongoing (Interventions Implemented as Appropriate) Problem: Activity Intolerance (Cardiovascular Surgery) Goal: Improved Activity Tolerance 11/17/2023445 by Hector Hair RN Outcome: Ongoing (Interventions Implemented as Appropriate) 11/17/2023445 by Hector Hair RN Outcome: Ongoing (Interventions Implemented as Appropriate) Problem: Adjustment to Surgery (Cardiovascular Surgery) Goal: Optimal Coping with Heart Surgery 11/17/2023445 by Hector Hair RN Outcome: Ongoing (Interventions Implemented as Appropriate) 11/17/2023445 by Hector Hair RN Outcome: Ongoing (Interventions Implemented as Appropriate) Problem: Bleeding (Cardiovascular Surgery) Goal: Absence of Bleeding 11/17/2023445 by Hector Hair RN Outcome: Ongoing (Interventions Implemented as Appropriate) 11/17/2023445 by Hector Hair RN Outcome: Ongoing (Interventions Implemented as Appropriate) Problem: Bowel Elimination Impaired (Cardiovascular Surgery) Goal: Effective Bowel Elimination 11/17/2023445 by Hector Hair RN Outcome: Ongoing (Interventions Implemented as Appropriate) 11/17/2023445 by Hector Hair RN Outcome: Ongoing (Interventions Implemented as Appropriate) Problem: Cardiac Function Impaired (Cardiovascular Surgery) Goal: Effective Cardiac Function 11/17/2023445 by Hector Hair RN Outcome: Ongoing (Interventions Implemented as Appropriate) 11/17/2023445 by Hector Hair RN Outcome: Ongoing (Interventions Implemented as Appropriate) Problem: Cerebral Tissue Perfusion Risk (Cardiovascular Surgery) Goal: Effective Cerebral Perfusion 11/17/2023445 by Hector Hair RN Outcome: Ongoing (Interventions Implemented as Appropriate) 11/17/2023445 by Hector Hair RN Outcome: Ongoing (Interventions Implemented as Appropriate) Problem: Fluid Imbalance (Cardiovascular Surgery) Goal: Fluid Balance 11/17/2023445 by Hector Hair RN Outcome: Ongoing (Interventions Implemented as Appropriate) 11/17/2023445 by Hector Hair RN Outcome: Ongoing (Interventions Implemented as Appropriate) Problem: Infection (Cardiovascular Surgery) Goal: Absence of Infection Signs and Symptoms 11/17/2023445 by Hector Hair, DELL Outcome: Ongoing (Interventions Implemented as Appropriate) 11/17/2023445 by Hector Hair RN Outcome: Ongoing (Interventions Implemented as Appropriate) Problem: Ongoing Anesthesia Effects (Cardiovascular Surgery) Goal: Anesthesia/Sedation Recovery 11/17/2023445 by Hector Hair RN Outcome: Ongoing (Interventions Implemented as Appropriate) 11/17/2023445 by Hector Hair RN Outcome: Ongoing (Interventions Implemented as Appropriate) Problem: Pain (Cardiovascular Surgery) Goal: Acceptable Pain Control 11/17/2023445 by Hector Hair RN Outcome: Ongoing (Interventions Implemented as Appropriate) 11/17/2023445 by Hector Hair RN Outcome: Ongoing (Interventions Implemented as Appropriate) Problem: Postoperative Nausea and Vomiting (Cardiovascular Surgery) Goal: Nausea and Vomiting Relief 11/17/2023445 by Hector Hair RN Outcome: Ongoing (Interventions Implemented as Appropriate) 11/17/2023445 by Hector Hair RN Outcome: Ongoing (Interventions Implemented as Appropriate) Problem: Postoperative Urinary Retention (Cardiovascular Surgery) Goal: Effective Urinary Elimination 11/17/2023445 by Hector Hair RN Outcome: Ongoing (Interventions Implemented as Appropriate) 11/17/2023445 by Hector Hair RN Outcome: Ongoing (Interventions Implemented as Appropriate) Problem: Respiratory Compromise (Cardiovascular Surgery) Goal: Effective Oxygenation and Ventilation 11/17/2023445 by Hector Hair RN Outcome: Ongoing (Interventions Implemented as Appropriate) 11/17/2023445 by Hector Hair RN Outcome: Ongoing (Interventions Implemented as Appropriate) Problem: Restraint, Nonbehavioral (Nonviolent) Goal: Discontinuation Criteria Achieved 11/17/2023445 by Hector Hair RN Outcome: Ongoing (Interventions Implemented as Appropriate) 11/17/2023445 by Hector Hair RN Outcome: Ongoing (Interventions Implemented as Appropriate) Problem: Dysrhythmia Goal: Normalized Cardiac Rhythm 11/17/2023445 by Hector Hair RN Outcome: Ongoing (Interventions Implemented as Appropriate) 11/17/2023445 by Hector Hair RN Outcome: Ongoing (Interventions Implemented as Appropriate) Problem: Pain Acute Goal: Acceptable Pain Control and Functional Ability 11/17/2023445 by Hector Hair RN Outcome: Ongoing (Interventions Implemented as Appropriate) 11/17/2023 0446 by Hector Hair, RN Outcome: Ongoing (Interventions Implemented as Appropriate) * Plan of Care - Hector Hair, RN - 11/16/2023 4:40 AM EDT OUTCOME EVALUATION NOTE: OUTCOME SUMMARY: A&Ox4, VSS (Sinus tach, aware. Htn, MD notified, PRN medications administered see MAR), on RA. Denies CP, pain, and SOB. Calls frequently but appropriately. Todd secure and patent. Continuingto actively monitor. PLAN MOVING FORWARD: Q4 VS PT/OT INDIVIDUALIZED FALL PREVENTION INTERVENTIONS: Patient-specific fall risk factors per assessment: [current deficits]: unfamiliar environment, wires/cords/lines Assistance [level of assistance required for transfers and ambulation]: SBA Supervision [direct monitoring required during toileting and ADLs]: Hands/eyes on w/walker Surveillance [continuous indirect monitoring]: Telemetry, pulse ox Patient-specific fall prevention interventions for sensory deficits provided, if applicable: Yes. Lighting adjusted, clutter free environment, non-slips on, bed alarm set, call tenorio within reach and calls as appropriate. CPG GOAL OUTCOME EVALUATION: Ongoing Problem: Fall Injury Risk Goal: Absence of Fall and Fall-Related Injury Outcome: Ongoing (Interventions Implemented as Appropriate) Problem: Adult Inpatient Plan of Care Goal: [...] Outcome: Ongoing (Interventions Implemented as Appropriate) Problem: Activity Intolerance (Cardiovascular Surgery) Goal: Improved Activity Tolerance Outcome: Ongoing (Interventions Implemented as Appropriate) Problem: Adjustment to Surgery (Cardiovascular Surgery) Goal: Optimal Coping with Heart Surgery Outcome: Ongoing (Interventions Implemented as Appropriate) Problem: Bleeding (Cardiovascular Surgery) Goal: Absence of Bleeding Outcome: Ongoing (Interventions Implemented as Appropriate) Problem: Bowel Elimination Impaired (Cardiovascular Surgery) Goal: Effective Bowel Elimination Outcome: Ongoing (Interventions Implemented as Appropriate) Problem: Cardiac Function Impaired (Cardiovascular Surgery) Goal: Effective Cardiac Function Outcome: Ongoing (Interventions Implemented as Appropriate) Problem: Cerebral Tissue Perfusion Risk (Cardiovascular Surgery) Goal: Effective Cerebral Perfusion Outcome: Ongoing (Interventions Implemented as Appropriate) Problem: Fluid Imbalance (Cardiovascular Surgery) Goal: Fluid Balance Outcome: Ongoing (Interventions Implemented as Appropriate) Problem: Infection (Cardiovascular Surgery) Goal: Absence of Infection Signs and Symptoms Outcome: Ongoing (Interventions Implemented as Appropriate) Problem: Ongoing Anesthesia Effects (Cardiovascular Surgery) Goal: Anesthesia/Sedation Recovery Outcome: Ongoing (Interventions Implemented as Appropriate) Problem: Pain (Cardiovascular Surgery) Goal: Acceptable Pain Control Outcome: Ongoing (Interventions Implemented as Appropriate) Problem: Postoperative Nausea and Vomiting (Cardiovascular Surgery) Goal: Nausea and Vomiting Relief Outcome: Ongoing (Interventions Implemented as Appropriate) Problem: Postoperative Urinary Retention (Cardiovascular Surgery) Goal: Effective Urinary Elimination Outcome: Ongoing (Interventions Implemented as Appropriate) Problem: Respiratory Compromise (Cardiovascular Surgery) Goal: Effective Oxygenation and Ventilation Outcome: Ongoing (Interventions Implemented as Appropriate) Problem: Restraint, Nonbehavioral (Nonviolent) Goal: Discontinuation Criteria Achieved Outcome: Ongoing (Interventions Implemented as Appropriate) Problem: Dysrhythmia Goal: Normalized Cardiac Rhythm Outcome: Ongoing (Interventions Implemented as Appropriate) Problem: Pain Acute Goal: Acceptable Pain Control and Functional Ability Outcome: Ongoing (Interventions Implemented as Appropriate) * Plan of Care - Rafael Greenfield RN - 11/15/2023 6:26 PM EDT OUTCOME EVALUATION NOTE: OUTCOME SUMMARY: ST throughout shift w/ rare PVCs. VSS on current regimen. Metop switched to coreg. Insulin coverageincreased. Worked w/ PT/OT. Ambulated x3 laps w/ SOB. Lasix given throughout shift w/ good effect. Has moments of discouragement, but is able to be encouraged. and mother at bedside. PLAN MOVING FORWARD: Continue PT/OT Transfer * Plan of Care - Gabino Parry RN - 11/14/2023 6:31 AM EDT OUTCOME EVALUATION NOTE: OUTCOME SUMMARY: No significant events overnight PLAN MOVING FORWARD: PT/OT, Med management, Downgrade? CARE PLAN GOAL OUTCOME EVALUATION: Problem: Fall Injury Risk Goal: Absence of Fall and Fall-Related Injury Outcome: Ongoing (Interventions Implemented as Appropriate) Problem: Adult Inpatient Plan of Care Goal: [...] Outcome: Ongoing (Interventions Implemented as Appropriate) Problem: Activity Intolerance (Cardiovascular Surgery) Goal: Improved Activity Tolerance Outcome: Ongoing (Interventions Implemented as Appropriate) Problem: Adjustment to Surgery (Cardiovascular Surgery) Goal: Optimal Coping with Heart Surgery Outcome: Ongoing (Interventions Implemented as Appropriate) Problem: Bleeding (Cardiovascular Surgery) Goal: Absence of Bleeding Outcome: Ongoing (Interventions Implemented as Appropriate) Problem: Bowel Elimination Impaired (Cardiovascular Surgery) Goal: Effective Bowel Elimination Outcome: Ongoing (Interventions Implemented as Appropriate) Problem: Cardiac Function Impaired (Cardiovascular Surgery) Goal: Effective Cardiac Function Outcome: Ongoing (Interventions Implemented as Appropriate) Problem: Cerebral Tissue Perfusion Risk (Cardiovascular Surgery) Goal: Effective Cerebral Perfusion Outcome: Ongoing (Interventions Implemented as Appropriate) Problem: Fluid Imbalance (Cardiovascular Surgery) Goal: Fluid Balance Outcome: Ongoing (Interventions Implemented as Appropriate) Problem: Infection (Cardiovascular Surgery) Goal: Absence of Infection Signs and Symptoms Outcome: Ongoing (Interventions Implemented as Appropriate) Problem: Ongoing Anesthesia Effects (Cardiovascular Surgery) Goal: Anesthesia/Sedation Recovery Outcome: Ongoing (Interventions Implemented as Appropriate) Problem: Pain (Cardiovascular Surgery) Goal: Acceptable Pain Control Outcome: Ongoing (Interventions Implemented as Appropriate) Problem: Postoperative Nausea and Vomiting (Cardiovascular Surgery) Goal: Nausea and Vomiting Relief Outcome: Ongoing (Interventions Implemented as Appropriate) Problem: Postoperative Urinary Retention (Cardiovascular Surgery) Goal: Effective Urinary Elimination Outcome: Ongoing (Interventions Implemented as Appropriate) Problem: Respiratory Compromise (Cardiovascular Surgery) Goal: Effective Oxygenation and Ventilation Outcome: Ongoing (Interventions Implemented as Appropriate) Problem: Restraint, Nonbehavioral (Nonviolent) Goal: Discontinuation Criteria Achieved Outcome: Ongoing (Interventions Implemented as Appropriate) Problem: Dysrhythmia Goal: Normalized Cardiac Rhythm Outcome: Ongoing (Interventions Implemented as Appropriate) Problem: Pain Acute Goal: Acceptable Pain Control and Functional Ability Outcome: Ongoing (Interventions Implemented as Appropriate) * Initial Assessments - Kita Tomlinson OT - 11/13/2023 2:10 PM EDT Occupational Therapy Evaluation Patient profile: Hayden Russo is a 47 y.o. male admitted on 10/30/2023 with a history of ASCVDpresenting with inferior STEMI s/p RCA PCI 2018 with recurrent RCA closures and repeat PCI (most recently July 2023), ischemic cardiomyopathy (LVEF 45%, RV dysfunction), poorly controlled IDDM2, chronic renal insufficiency (baseline creatinine in 2s), BMI 42, HTN, HLD, TUD in remission who is now s/p planned 3vCABG ([facility]-LAD, SVG-OM2, SVG-RPDA) with Dr. Person on 10/30/23 with post-op course complicated by RV failure, cardiogenic shock, severe hypoxic respiratory failure and acute kidney injury on CKD. Past Medical History: Diagnosis Date Coronary artery disease Diabetes Hypertension Past Surgical History: Procedure Laterality Date CORONARY ANGIOPLASTY WITH STENT PLACEMENT HERNIA REPAIR PRG CATH [facility] LEFT HEART CATH & ARTS W/INJ & ANGIO IMG S&I N/A 08/04/2023 CORONARY ANGIOGRAPHY; W LHC,POSSIBLE PCI (WRVU 5.6) performed by Azul Rowley MD at [facility] CATHLABS PRO CABG, ARTERIAL, SINGLE N/A 10/30/2023 @CABG, USING ARTERIAL GRAFT;SINGLE ARTERIAL GRAFT (WRVU 33.75) performed by Timi Person MD at [facility] MAIN OR PRO CABG, ARTERY-VEIN, TWO N/A 10/30/2023 @CABG, TWO VENOUS GRAFTS & ARTERIAL GRAFT (WRVU 7.93) performed by Timi Person MD at [facility] MAIN OR PRO ENDOSCOPY W/VIDEO-ASST VEIN HARVEST, CABG N/A 10/30/2023 ENDOSCOPIC HARVEST VEIN(S) FOR CABG (WRVU 0.31) performed by Timi Person MD at [facility] MAIN OR Social History: (pt and CM note) Patient lives with his and tabby cat. Home Setup: a2nd floor apartment with FOS to enter. DME: walker and cane Baseline ADL/Mobility: Independent with ADLs and functional mobility. 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 Precautions/Special Considerations: Full code. Risk for falls. sternal precautions: no lifting >5-10 lbs.; no pushing or pulling with UE's; no excessive chest stretching, hug a pillow or cross your arms when you stand or sit, no driving until cleared by your surgeon. Risk for delirium. Central line. Todd catheter. Subjective: I don't know how I feel. I'm just so hot. Objective: Seen today for OT evaluation. Cognitive Status/Behavior: Behavior / Mood: alert and cooperative Alert and oriented to: person, place, time, and situation Follows commands: 2 step, requires repetition of directions/verbal cueing, and requires tactile cueing Attention: distractible, difficulty attending to task / directions, and requires cues to redirect Safety awareness: decreased insight into deficits Pleasant and willing Vision & Perception: Functional Communication: WFL Range of motion, strength, coordination: Hand dominance: unsure Bilateral UEs are functional, sternal precautions LE limitations: functional ROM Grossly deconditioned. Sensation: No acute impairments noted at this time, will continue to assess Activities of Daily Living: Self-feeding: set-up Grooming: supervision to complete sitting EOB- brushed teeth and washed hair. Educated on using 1 hand Dressing: demonstrates need for Max A, will benefit from long handled adaptive equipment Bathing: demonstrates need for Mod-Max A Toileting: Transfer: Min-Mod A x2 with RW Hygiene: demonstrates need for Mod-Max A Functional Mobility: Supine to sit: Min A with education for sternal precautions, hooked heels on bed Sit to stand: Min A x2 with RW, pt placed hands on knees Ambulation: Min A x2 with RW to side step along EOB a few steps Stand to sit: Min A Sit to supine: Mod A x2 Balance: Sitting balance: supervision Standing balance: Min-Mod A x2 Vitals: BP (MAP) 133/88 (96) post activity HR 113 SpO2 95% on 3L Pain: butt, offloaded with side lying and improved for the time being Skin: Central line. Todd catheter. Concern with sacral skin. PIV Education: patient have been educated on Role of occupational therapy/rehabilitation, Transfers, Assistive device/technique, ADL, Exercise, Breathing exercises, Positioning, Safety, Precautions/Protocol, Functional Mobility, Activity pacing/Energy conservation, Balance, and Recommendations and verbalizes understanding. Patient status, treatment, and mobility recommendations discussed with nursing. Assessment: Pt has been seen for occupational therapy evaluation. Hayden Russo presents withthe following performance skill deficits and client factors: increased pain, decreased activity tolerance, decreased flexibility / ROM, decreased strength, decreased sitting / standing balance, hemodynamic instability, body habitus, deconditioning, precautions / bracing, compromised mobility status, coping, and skin integrity. These performance deficits have led to activity limitations and participation restrictions in the following areas of occupation: dressing, bathing, grooming, toileting, transfers / mobility, rest / sleep, home management, work, leisure, driving, and community mobility. Ambrocio demonstrates decreased independence with ADLs and functional mobility. He is not safe to discharge home at this time, upon this assessment. Pt would benefit from further inpatient OT interventions to address performance deficits and maximize participation and independence with occupations of daily living. Equipment needs at discharge: to be determined Anticipated Discharge Dispostion: acute rehabilitation facility (pending progress) Other Recommendations: Open shades and turn on lights during the day/lights off at night, Set-up patient with ADL tasks, allow patient to complete ADL tasks as independently as possible Assist patient to the toilet (no bed brooks) Provide choices as able, encourage safe coping skills (such as music, reading, coloring, word search, journaling) Have patient sit up in recliner bed in chair position during the day as much as possible Sit upright for all meals Ambulate as tolerated Other Recommendations: No other consults recommended at this time. Goals: To be achieved by 11/27/23. Pt will demonstrate independence with precautions/restrictions during ADLs. Pt will perform standing ADLs with CGA only and least restrictive assistive device. Pt will complete LB dressing with Min A and adaptive technique/equipment as needed. Pt will complete UB dressing with CGA and compensatory strategies as needed. Pt will ambulate with Min A to the toilet and least restrictive assistive device. Patient will complete luis miguel-care and clothing management with Min A with adaptive equipment as needed and least restrictive assistive device. Spouse will demonstrate and state safe techniques to assist and care for the patient and limit harmto themself. Plan: OT: Therapy Frequency (OT): 2-4 times/wk Planned OT interventions: Role of occupational therapy/rehabilitation, Transfers, Assistive device/technique, Adaptive equipment training, ADL, Exercise, Breathing exercises, Positioning, Safety, Precautions/Protocol, Functional Mobility, Activity pacing/Energy conservation, Home Program, Home Management, Balance, Recommendations, Family training, and Discharge planning. Total Minutes, Occupational Therapy: 31 ([id number] (evaluation)) 2017 OT Evaluation Code Rationale: Diagnosis & Pertinent Co-Morbidities affecting Plan of Care: see PMHx Occupational Profile & Client History: Brief Expanded Extensive X Assessment of Occupational Performance: 1-3 performance deficits 3-5 performance deficits 5 + performance deficits X Clinical Decision Making: Low Moderate High X Clinical decision making of high complexity using standardized patient assessment instrument and measurable assessment of functional outcome. Pager: [phone] Kita Tomlinson OT 11/13/2023 Occupational Therapy Rehabilitation Department * Plan of Care - Rom Du RN - 11/11/2023 6:10 PM EDT Abdominal xray for discomfort. Net even CVVH per order. OOB to chair via ceiling lift. Epicardial wires removed by PA. Strength and mobility improved from yesterday. Problem: Fall Injury Risk Goal: Absence of Fall and Fall-Related Injury Outcome: Ongoing (Interventions Implemented as Appropriate) * Plan of Care - Margo Gross RN - 11/11/2023 6:40 AM EDT Problem: Fall Injury Risk Goal: Absence of Fall and Fall-Related Injury Outcome: Ongoing (Interventions Implemented as Appropriate) Problem: Adult Inpatient Plan of Care Goal: Plan of Care Review Outcome: Ongoing (Interventions Implemented as Appropriate) Goal: Optimal Comfort and Wellbeing Outcome: Ongoing (Interventions Implemented as Appropriate) Goal: Readiness for Transition of Care Outcome: Ongoing (Interventions Implemented as Appropriate) Problem: Activity Intolerance (Cardiovascular Surgery) Goal: Improved Activity Tolerance Outcome: Ongoing (Interventions Implemented as Appropriate) Problem: Adjustment to Surgery (Cardiovascular Surgery) Goal: Optimal Coping with Heart Surgery Outcome: Ongoing (Interventions Implemented as Appropriate) Problem: Cardiac Function Impaired (Cardiovascular Surgery) Goal: Effective Cardiac Function Outcome: Ongoing (Interventions Implemented as Appropriate) Problem: Fluid Imbalance (Cardiovascular Surgery) Goal: Fluid Balance Outcome: Ongoing (Interventions Implemented as Appropriate) Problem: Respiratory Compromise (Cardiovascular Surgery) Goal: Effective Oxygenation and Ventilation Outcome: Ongoing (Interventions Implemented as Appropriate) Pt remained on CPAP overnight, maintaining sats 95-97%. Tolerated up to -125/hr on CRRT. Kept NPO per team. Heparin gtt held this AM for TPW removal later. * Consult Note - Kyra Isabel RN - 11/10/2023 3:12 PM EDT Images from the original note were not included. Certified Wound Care Nurse Note Situation: Asked to see Hayden Russo by Roslyn Mcdonald RN for sacral spine, appearing non blanchable reddened. Background: eD-H notes reviewed for history, admitting diagnosis and active problem list. Per cardiac surgery note: Hayden Russo is a 47 y.o. male with CAD who is 11 Days Post-Op CABGx3. PMH of inferior STEMI s/p PCI, IDDM2, HTN, HLD, CKD, former smoker. Labs Lab Results Component Value Date ALBUMIN 2.9 (L) 10/31/2023 ALBUMIN 3.2 10/30/2023 ALBUMIN 3.8 09/22/2023 ALBUMIN 3.8 10/12/2018 HA1C 9.5 (H) 10/31/2023 HA1C 11.2 (H) 06/05/2023 HA1C 13.9 (H) 10/13/2018 WBC 22.58 (H) 11/10/2023 WBC 19.87 (H) 11/10/2023 WBC 18.26 (H) 11/09/2023 WBC 9.0 09/22/2023 WBC 10.4 (H) 08/04/2023 WBC 8.6 06/07/2023 HGB 9.9 (L) 11/10/2023 HGB 9.4 (L) 11/10/2023 HGB 8.9 (L) 11/09/2023 HGB 12.4 (L) 09/22/2023 HGB 12.0 (L) 08/04/2023 HGB 9.7 (L) 06/07/2023 HCT 32.2 (L) 11/10/2023 HCT 30.3 (L) 11/10/2023 HCT 28.7 (L) 11/09/2023 HCT 42.5 09/22/2023 HCT 41.3 08/04/2023 HCT 33.7 (L) 06/07/2023 PLATELET 315 11/10/2023 PLATELET 269 11/10/2023 PLATELET 273 11/09/2023 PLATELET 279 09/22/2023 PLATELET 273 08/04/2023 PLATELET 237 06/07/2023 INR 1.1 11/03/2023 INR 1.1 11/03/2023 INR 1.1 10/30/2023 INR 0.9 09/22/2023 INR 0.9 10/12/2018 PT 12.4 11/03/2023 PT 13.0 (H) 11/03/2023 PT 12.4 10/30/2023 PT 10.2 09/22/2023 PT 10.7 10/12/2018 Nutritional Status Wt Readings from Last 1 Encounters: 11/10/23 127.9 kg (281 lb 15.5 oz) Body mass index is 40.46 kg/m??. Duane Score: 14 Wound Assessment and Care Provided: Patient seen this afternoon in the CV[facility] in bed, on BiPAP and CRRT. RN at bedside, states Flexi-Seal was removed today, patient is having loose stools, on tube feedings. Air TAPS in use. Patient was turned to the right side, there is blanchable redness on the buttocks, there is a purple discoloration noted on the left buttock that does not brielle. Mepilex BorderSacrum currently not in use due to frequent stools. There was a small amount of stool present and chux changed. Buttocks: Current bed: Progressa Assessment: There is purple discoloration on the left buttock, somewhat scattered and not over a bony prominence. Not typical of a deep tissue injury but will treat as such for now and follow for evolution. Wound Care Recommendations: Mepilex Border Sacrum dressing to sacrum-Assess beneath the dressing daily and reapply. Change every 3 days and PRN: 1. Cleanse wound with dermal wound cleanser and gauze. 2. Apply Mepilex Border Sacrum dressing. Note: If the Mepilex Border Sacrum is getting soiled more than twice a shift, omit the dressing andapply zinc oxide paste twice daily and as needed. Refer to adult/pediatric pressure ulcer prevention job aid in the clinical policy library highlighting the following points: Mobility: Turn and reposition every 2 hours and document in ED-H, side to side only. Place a pillow above and below sacral area while in bed to off load pressure to the sacrum Offload pressure from heels by placing pillows lengthwise beneath legs while in bed. Offload pressure from heels by adjusting length of foot of bed. Activity: Implement reminder system for repositioning every two hours while in bed Limit time OOB to the chair to 1 hour intervals. (Including placing bed in chair position, or having HOB higher than 30 degrees) Use a Hövding chair cushion beneath patient at all times while in the chair. Reinforce teaching to shift weight every 15 minutes while in the chair. This can be done by shifting weight side to side to off load pressure to ischial tuberosities. Place a pillow at the lumbar spine to off load pressure to the sacral spine. Wound Care Team will follow up weekly. Discussed plan with: //RAMONA/PA: Secure chat Aby Williamson RN: Rom Please contact KYRA ISABEL RN on eDH secure chat or the wound care team on pager [phone] with skinand wound care concerns or questions. * Plan of Care - Nica Llanos - 11/09/2023 5:38 PM EDT OUTCOME EVALUATION NOTE: OUTCOME SUMMARY: Sofía off, vent @ 40% FiO2, sats 98-100%, paO2 70-85%. Dopa off this AM, HR 60-70, pacer in VVI backup.Able to pull 50-100 mL/hr over shift. Phos replaced @ 25/hr. Fent decreased to 50/hr, follows commands. Wound care consult placed for non- blanchable redness on sacrum. Problem: Fluid Imbalance (Cardiovascular Surgery) Goal: Fluid Balance Outcome: Ongoing (Interventions Implemented as Appropriate) Problem: Respiratory Compromise (Cardiovascular Surgery) Goal: Effective Oxygenation and Ventilation Outcome: Ongoing (Interventions Implemented as Appropriate) Problem: Pain (Cardiovascular Surgery) Goal: Acceptable Pain Control Outcome: Ongoing (Interventions Implemented as Appropriate) PLAN MOVING FORWARD: SBT overnight Goal -2L CRRT Pause TF @ midnight per order * Plan of Care - Price Cm RN - 11/09/2023 6:48 AM EDT Problem: Fall Injury Risk Goal: Absence of Fall and Fall-Related Injury Outcome: Ongoing (Interventions Implemented as Appropriate) Problem: Adult Inpatient Plan of Care Goal: [...] Outcome: Ongoing (Interventions Implemented as Appropriate) Problem: Activity Intolerance (Cardiovascular Surgery) Goal: Improved Activity Tolerance Outcome: Ongoing (Interventions Implemented as Appropriate) Problem: Adjustment to Surgery (Cardiovascular Surgery) Goal: Optimal Coping with Heart Surgery Outcome: Ongoing (Interventions Implemented as Appropriate) Problem: Bleeding (Cardiovascular Surgery) Goal: Absence of Bleeding Outcome: Ongoing (Interventions Implemented as Appropriate) Problem: Bowel Elimination Impaired (Cardiovascular Surgery) Goal: Effective Bowel Elimination Outcome: Ongoing (Interventions Implemented as Appropriate) Problem: Cardiac Function Impaired (Cardiovascular Surgery) Goal: Effective Cardiac Function Outcome: Ongoing (Interventions Implemented as Appropriate) Problem: Cerebral Tissue Perfusion Risk (Cardiovascular Surgery) Goal: Effective Cerebral Perfusion Outcome: Ongoing (Interventions Implemented as Appropriate) Problem: Fluid Imbalance (Cardiovascular Surgery) Goal: Fluid Balance Outcome: Ongoing (Interventions Implemented as Appropriate) Problem: Infection (Cardiovascular Surgery) Goal: Absence of Infection Signs and Symptoms Outcome: Ongoing (Interventions Implemented as Appropriate) Problem: Ongoing Anesthesia Effects (Cardiovascular Surgery) Goal: Anesthesia/Sedation Recovery Outcome: Ongoing (Interventions Implemented as Appropriate) Problem: Pain (Cardiovascular Surgery) Goal: Acceptable Pain Control Outcome: Ongoing (Interventions Implemented as Appropriate) Problem: Postoperative Nausea and Vomiting (Cardiovascular Surgery) Goal: Nausea and Vomiting Relief Outcome: Ongoing (Interventions Implemented as Appropriate) Problem: Postoperative Urinary Retention (Cardiovascular Surgery) Goal: Effective Urinary Elimination Outcome: Ongoing (Interventions Implemented as Appropriate) Problem: Respiratory Compromise (Cardiovascular Surgery) Goal: Effective Oxygenation and Ventilation Outcome: Ongoing (Interventions Implemented as Appropriate) Problem: Restraint, Nonbehavioral (Nonviolent) Goal: Discontinuation Criteria Achieved Outcome: Ongoing (Interventions Implemented as Appropriate) Problem: Dysrhythmia Goal: Normalized Cardiac Rhythm Outcome: Ongoing (Interventions Implemented as Appropriate) Problem: Pain Acute Goal: Acceptable Pain Control and Functional Ability Outcome: Ongoing (Interventions Implemented as Appropriate) * Plan of Care - Brittani Dietrich RN - 11/08/2023 6:14 PM EDT OUTCOME EVALUATION NOTE: OUTCOME SUMMARY: Weaned down to 2 on Sofía and FiO2 of 50 gases remain robust with a PaO2 in the 100s. BP stable throughout shift with continuous pulling of 50 mL/hr of CRRT. Levo not needed. Weaned down fentanyl from 100mL/hr to 75 mL/hr. Continues to put out stool every hour, tube feeds are at goal, and urine has slowed to 10-20 mL/hr with the increase in pull from CRRT. PLAN MOVING FORWARD: Continue to wean off Sofía and FiO2 and pull more off of CRRT. INDIVIDUALIZED FALL PREVENTION INTERVENTIONS: Patient-specific fall risk factors per assessment: [current deficits]: Yes Assistance [level of assistance required for transfers and ambulation]: Dependent Supervision [direct monitoring required during toileting and ADLs]: ICU monitoring Surveillance [continuous indirect monitoring]: ICU monitoring Patient-specific fall prevention interventions for sensory deficits provided, if applicable: Yes Problem: Fall Injury Risk Goal: Absence of Fall and Fall-Related Injury Outcome: Ongoing (Interventions Implemented as Appropriate) Problem: Adult Inpatient Plan of Care Goal: [...] Outcome: Ongoing (Interventions Implemented as Appropriate) Problem: Activity Intolerance (Cardiovascular Surgery) Goal: Improved Activity Tolerance Outcome: Ongoing (Interventions Implemented as Appropriate) Problem: Adjustment to Surgery (Cardiovascular Surgery) Goal: Optimal Coping with Heart Surgery Outcome: Ongoing (Interventions Implemented as Appropriate) Problem: Bleeding (Cardiovascular Surgery) Goal: Absence of Bleeding Outcome: Ongoing (Interventions Implemented as Appropriate) Problem: Bowel Elimination Impaired (Cardiovascular Surgery) Goal: Effective Bowel Elimination Outcome: Ongoing (Interventions Implemented as Appropriate) Problem: Cardiac Function Impaired (Cardiovascular Surgery) Goal: Effective Cardiac Function Outcome: Ongoing (Interventions Implemented as Appropriate) Problem: Cerebral Tissue Perfusion Risk (Cardiovascular Surgery) Goal: Effective Cerebral Perfusion Outcome: Ongoing (Interventions Implemented as Appropriate) Problem: Fluid Imbalance (Cardiovascular Surgery) Goal: Fluid Balance Outcome: Ongoing (Interventions Implemented as Appropriate) Problem: Infection (Cardiovascular Surgery) Goal: Absence of Infection Signs and Symptoms Outcome: Ongoing (Interventions Implemented as Appropriate) Problem: Ongoing Anesthesia Effects (Cardiovascular Surgery) Goal: Anesthesia/Sedation Recovery Outcome: Ongoing (Interventions Implemented as Appropriate) Problem: Pain (Cardiovascular Surgery) Goal: Acceptable Pain Control Outcome: Ongoing (Interventions Implemented as Appropriate) Problem: Postoperative Nausea and Vomiting (Cardiovascular Surgery) Goal: Nausea and Vomiting Relief Outcome: Ongoing (Interventions Implemented as Appropriate) Problem: Postoperative Urinary Retention (Cardiovascular Surgery) Goal: Effective Urinary Elimination Outcome: Ongoing (Interventions Implemented as Appropriate) Problem: Respiratory Compromise (Cardiovascular Surgery) Goal: Effective Oxygenation and Ventilation Outcome: Ongoing (Interventions Implemented as Appropriate) Problem: Restraint, Nonbehavioral (Nonviolent) Goal: Discontinuation Criteria Achieved Outcome: Ongoing (Interventions Implemented as Appropriate) Problem: Dysrhythmia Goal: Normalized Cardiac Rhythm Outcome: Ongoing (Interventions Implemented as Appropriate) Problem: Pain Acute Goal: Acceptable Pain Control and Functional Ability Outcome: Ongoing (Interventions Implemented as Appropriate) * Care Management - Maria De Jesus Feliciano RN - 11/08/2023 11:18 AM EDT OFFICE OF CARE MANAGEMENT PROGRESS NOTE LOS: Hospital Day 9 days Chart reviewed, care reviewed with primary team and at interdisciplinary rounds. Patient continues to meet inpatient level of care related to: remains intubated and on CVVH. 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 Current Living Arrangements: home/apartment/condo. Accessibility Concerns: apartment on the second floor with FOS. Current Functional Ability: Completely Dependent DME used at home: none, other (see comments) (they have walker and cane) DME Needed at Discharge: No Patient is insured through: Primary Insurance: [employer] [facility] Payor: [employer] [facility] / Plan: [facility] / Product Type: *No Product type* / Secondary Insurance: N/A Plan for discharge is: Pending Hospital Course and PT/OT Recommendations Outpatient Agency/Support Group Needs: Homecare agency Agency Referrals: [facility] routed and pended watch for PT/OT recommendations Transportation: family or friend will provide Barriers to discharge: Discharge planning Psych: Adjustment to diagnosis/illness Supports: Caregiver support Financial: Financial/insurance ICU Needs: ICU specific devices / therapies, mechanically ventilated, vasoactive medications, Q1 hour interventions Plan going forward: Watch for PT / OT rec. Moving forward. Patient with no other apparent RNCM/SW needs at this time. No housing, transportation, insurance, resources concerns identified at this time. Supports in place to achieve a safe post-hospital transition. No identified barriers to accessing necessary care and/or follow-up after discharge. 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 coughing requiring multiple in-trach suction and fent boluses given (see MAR). Pt tolerating CRRT. Problem: Adult Inpatient Plan of Care Goal: [...] Ongoing (Interventions Implemented as Appropriate) Problem: Fluid Imbalance (Cardiovascular Surgery) Goal: Fluid Balance Outcome: Ongoing (Interventions Implemented as Appropriate) Problem: Cerebral Tissue Perfusion Risk (Cardiovascular Surgery) Goal: Effective Cerebral Perfusion Outcome: Ongoing (Interventions Implemented as Appropriate) Problem: Respiratory Compromise (Cardiovascular Surgery) Goal: Effective Oxygenation and Ventilation Outcome: Ongoing (Interventions Implemented as Appropriate) Problem: Restraint, Nonbehavioral (Nonviolent) Goal: Discontinuation Criteria Achieved Outcome: Ongoing (Interventions Implemented as Appropriate) Problem: Pain Acute Goal: Acceptable Pain Control and Functional Ability Outcome: Ongoing (Interventions Implemented as Appropriate) * Plan of Care - Brittani Dietrich RN - 11/07/2023 6:08 PM EDT OUTCOME EVALUATION NOTE: OUTCOME SUMMARY: Started Pt on CRRT today, sudden decrease in hemodynamics and SpO2 with the start of CRRT, Pt recovered with Levo and an increase in FiO2 from 60% to 70%. Goal for CRRT was net even and slowly move to negative 25 mL/hr, Pt tolerated goal over the course of the shift. Still on 2 of Dopamine and 1.7 of Dex. PLAN MOVING FORWARD: Continue to increase CRRT pull rate. INDIVIDUALIZED FALL PREVENTION INTERVENTIONS: Patient-specific fall risk factors per assessment: [current deficits]: Sedated Assistance [level of assistance required for transfers and ambulation]: Dependent Supervision [direct monitoring required during toileting and ADLs]: Dependent Surveillance [continuous indirect monitoring]: ICU monitoring Patient-specific fall prevention interventions for sensory deficits provided, if applicable: Yes CARE PLAN GOAL OUTCOME EVALUATION: Problem: Fall Injury Risk Goal: Absence of Fall and Fall-Related Injury Outcome: Ongoing (Interventions Implemented as Appropriate) Problem: Adult Inpatient Plan of Care Goal: [...] Outcome: Ongoing (Interventions Implemented as Appropriate) Problem: Activity Intolerance (Cardiovascular Surgery) Goal: Improved Activity Tolerance Outcome: Ongoing (Interventions Implemented as Appropriate) Problem: Adjustment to Surgery (Cardiovascular Surgery) Goal: Optimal Coping with Heart Surgery Outcome: Ongoing (Interventions Implemented as Appropriate) Problem: Bleeding (Cardiovascular Surgery) Goal: Absence of Bleeding Outcome: Ongoing (Interventions Implemented as Appropriate) Problem: Bowel Elimination Impaired (Cardiovascular Surgery) Goal: Effective Bowel Elimination Outcome: Ongoing (Interventions Implemented as Appropriate) Problem: Cardiac Function Impaired (Cardiovascular Surgery) Goal: Effective Cardiac Function Outcome: Ongoing (Interventions Implemented as Appropriate) Problem: Cerebral Tissue Perfusion Risk (Cardiovascular Surgery) Goal: Effective Cerebral Perfusion Outcome: Ongoing (Interventions Implemented as Appropriate) Problem: Fluid Imbalance (Cardiovascular Surgery) Goal: Fluid Balance Outcome: Ongoing (Interventions Implemented as Appropriate) Problem: Infection (Cardiovascular Surgery) Goal: Absence of Infection Signs and Symptoms Outcome: Ongoing (Interventions Implemented as Appropriate) Problem: Ongoing Anesthesia Effects (Cardiovascular Surgery) Goal: Anesthesia/Sedation Recovery Outcome: Ongoing (Interventions Implemented as Appropriate) Problem: Pain (Cardiovascular Surgery) Goal: Acceptable Pain Control Outcome: Ongoing (Interventions Implemented as Appropriate) Problem: Postoperative Nausea and Vomiting (Cardiovascular Surgery) Goal: Nausea and Vomiting Relief Outcome: Ongoing (Interventions Implemented as Appropriate) Problem: Postoperative Urinary Retention (Cardiovascular Surgery) Goal: Effective Urinary Elimination Outcome: Ongoing (Interventions Implemented as Appropriate) Problem: Respiratory Compromise (Cardiovascular Surgery) Goal: Effective Oxygenation and Ventilation Outcome: Ongoing (Interventions Implemented as Appropriate) Problem: Restraint, Nonbehavioral (Nonviolent) Goal: Discontinuation Criteria Achieved Outcome: Ongoing (Interventions Implemented as Appropriate) Problem: Dysrhythmia Goal: Normalized Cardiac Rhythm Outcome: Ongoing (Interventions Implemented as Appropriate) Problem: Pain Acute Goal: Acceptable Pain Control and Functional Ability Outcome: Ongoing (Interventions Implemented as Appropriate) * Consult Note - Annalisa Albrecht RN - 11/07/2023 3:16 PM EDTSummary: VAS ROUNDING Images from the original note were not included. This is my assessment as well as photographic evidence of the CVAD dressing integrity at the time of VAS's (Vascular Access Services) rounding. Assessment: (Please check all that apply) [] Insertion site exposed (sterile dressing change performed) [] Missing date [x] Blood or fluid under dressing extending past CHG Jelly puck or Biopatch [] Uncapped lumen or hubs or tubing [] Unclamped non-infusing lumen [x] Non-occlusive dressing [x] Other SPOKE WITH BEDSIDE NURSE REGARDING DRESSING, BEDSIDE RN IS AWARE, STATES PT IS ON CRRT RIGHT NOW AND ACUTELY ILL, WILL PRIORITIZE DRESSING CHANGE WHEN ITS APPROPRIATE The bedside RN was notified if an immediate intervention is recommended. * Plan of Care - Nica Llanos - 11/06/2023 6:32 PM EDT OUTCOME EVALUATION NOTE: OUTCOME SUMMARY: Epi d/c'd, switched to dopamine. HR high 60s, pacer in VVI backup. SBP 100-140, prn hydral x1. Ventfrom 40% to 50% FiO2, sats 89%-94%. +1L, lasix drip@ 20 + bolus, diuril added (see eMAR). Follows commands, +2/+1 strength, bilat DP pulses to doppler, right weaker than left. In bed chair all day for lungs. Febrile, 38.7 bladder, PA notified, scheduled tylenol on board. Problem: Fluid Imbalance (Cardiovascular Surgery) Goal: Fluid Balance Outcome: Ongoing (Interventions Implemented as Appropriate) Problem: Respiratory Compromise (Cardiovascular Surgery) Goal: Effective Oxygenation and Ventilation Outcome: Ongoing (Interventions Implemented as Appropriate) Problem: Postoperative Urinary Retention (Cardiovascular Surgery) Goal: Effective Urinary Elimination Outcome: Ongoing (Interventions Implemented as Appropriate) PLAN MOVING FORWARD: Continue diuretics Replace lytes PRN Wean Sofía and fio2 as able * Care Management - Yovanny Scott RN - 11/06/2023 3:23 PM EDT OFFICE OF CARE MANAGEMENT PROGRESS NOTE LOS: Hospital Day 7 days Chart reviewed, care reviewed with primary team and at interdisciplinary rounds. 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 Current Living Arrangements: home/apartment/condo. Accessibility Concerns: apartment on the second floor with FOS. Current Functional Ability: Completely Dependent DME used at home: none, other (see comments) (they have walker and cane) DME Needed at Discharge: No Patient is insured through: Primary Insurance: [employer] [facility] Payor: [employer] [facility] / Plan: JASON SCHILL[employer] / Product Type: *No Product type* / Secondary Insurance: N/A Plan for discharge is: Pending Hospital Course and PT/OT Recommendations Outpatient Agency/Support Group Needs: Homecare agency Agency Referrals: pending clinical course and PT/OT recs [facility] Agency - [place] [id number] and Transportation: family or friend will provide Barriers to discharge: Discharge planning Psych: Adjustment to diagnosis/illness Supports: Caregiver support Financial: Financial/insurance ICU Needs: ICU specific devices / therapies, mechanically ventilated, vasoactive medications, Q1 hour interventions Plan going forward: Pt remains intubated and sedated in the CVCC 7 days s/p CABGx3. D/c plan pending clinical course and PT/OT recs. RN CM will continue to monitor for anticipated d/c needs. Anticipated Date of Discharge: 11/13/2023 * Plan of Care - Rodriguez Perez RN - 11/06/2023 5:22 AM EDT Patient int. restless overnight, remains on dex and fent. FiO2 weaned as able, now at 40%, maintaining sats>92%. PRN hydral given x3 to maintain SBP<150. Diuresing w/ lasix gtt + diuril. TF held. K replaced. Problem: Fall Injury Risk Goal: Absence of Fall and Fall-Related Injury 11/06/2023521 by Rodriguez Perez RN Outcome: Ongoing (Interventions Implemented as Appropriate) 11/06/2023521 by Rodriguez Perez RN Outcome: Ongoing (Interventions Implemented as Appropriate) Problem: Adult Inpatient Plan of Care Goal: Plan of Care Review 11/06/2023521 by Rodriguez Perez RN Outcome: Ongoing (Interventions Implemented as Appropriate) 11/06/2023521 by Rodriguez Perez RN Outcome: Ongoing (Interventions Implemented as Appropriate) Goal: Patient-Specific Goal (Individualized) 11/06/2023521 by Rodriguez Perez RN Outcome: Ongoing (Interventions Implemented as Appropriate) 11/06/2023521 by Rodriguez Perez RN Outcome: Ongoing (Interventions Implemented as Appropriate) Goal: Absence of Hospital-Acquired Illness or Injury 11/06/2023521 by Rodriguez Perez RN Outcome: Ongoing (Interventions Implemented as Appropriate) 11/06/2023521 by Rodriguez Perez RN Outcome: Ongoing (Interventions Implemented as Appropriate) Goal: Optimal Comfort and Wellbeing 11/06/2023521 by Rodriguez Perez RN Outcome: Ongoing (Interventions Implemented as Appropriate) 11/06/2023521 by Rodriguez Perez RN Outcome: Ongoing (Interventions Implemented as Appropriate) Goal: Readiness for Transition of Care 11/06/2023521 by Rodriguez Perez RN Outcome: Ongoing (Interventions Implemented as Appropriate) 11/06/2023521 by Rodriguez Perez RN Outcome: Ongoing (Interventions Implemented as Appropriate) Problem: Bowel Elimination Impaired (Cardiovascular Surgery) Goal: Effective Bowel Elimination 11/06/2023521 by Rodriguez Perez RN Outcome: Ongoing (Interventions Implemented as Appropriate) 11/06/2023521 by Rodriguez Perez RN Outcome: Ongoing (Interventions Implemented as Appropriate) Problem: Cardiac Function Impaired (Cardiovascular Surgery) Goal: Effective Cardiac Function 11/06/2023521 by Rodriguez Perez RN Outcome: Ongoing (Interventions Implemented as Appropriate) 11/06/2023521 by Rodriguez Perez RN Outcome: Ongoing (Interventions Implemented as Appropriate) Problem: Cerebral Tissue Perfusion Risk (Cardiovascular Surgery) Goal: Effective Cerebral Perfusion 11/06/2023521 by Rodriguez Perez RN Outcome: Ongoing (Interventions Implemented as Appropriate) 11/06/2023521 by Rodriguez Perez RN Outcome: Ongoing (Interventions Implemented as Appropriate) Problem: Fluid Imbalance (Cardiovascular Surgery) Goal: Fluid Balance 11/06/2023521 by Rodriguez Perez RN Outcome: Ongoing (Interventions Implemented as Appropriate) 11/06/2023521 by Rodriguez Perez RN Outcome: Ongoing (Interventions Implemented as Appropriate) Problem: Infection (Cardiovascular Surgery) Goal: Absence of Infection Signs and Symptoms 11/06/2023521 by Rodriguez Perez RN Outcome: Ongoing (Interventions Implemented as Appropriate) 11/06/2023521 by Rodriguez Perez RN Outcome: Ongoing (Interventions Implemented as Appropriate) Problem: Pain (Cardiovascular Surgery) Goal: Acceptable Pain Control 11/06/2023521 by Rodriguez Perez RN Outcome: Ongoing (Interventions Implemented as Appropriate) 11/06/2023521 by Rodriguez Perez RN Outcome: Ongoing (Interventions Implemented as Appropriate) Problem: Respiratory Compromise (Cardiovascular Surgery) Goal: Effective Oxygenation and Ventilation 11/06/2023521 by Rodriguez Perez RN Outcome: Ongoing (Interventions Implemented as Appropriate) 11/06/2023521 by Rodriguez Perez RN Outcome: Ongoing (Interventions Implemented as Appropriate) * Plan of Care - Andree Banks RN - 11/05/2023 6:33 PM EDT Patient intubated and lightly sedated on dex and fentanyl. Following commands and moving all extremities. 1 unit of pRBCs given. HD line placed. Line confirmed by xray. Lasix stopped. CRRT initiated,patient became severely hypotensive requiring the blood to be returned nearly immediately. HD access lines locked with heparin. A 500 NS bolus was ordered but stopped due to respiratory instability. At the same point fiO2 requirement increased all the way up to 100%. After serial ABGs Sofía was increased to 10. Epi started at 2. Lasix restarted. updated via phone. * Plan of Care - Rafael Greenfield RN - 11/05/2023 12:19 AM EDT OUTCOME EVALUATION NOTE: OUTCOME SUMMARY: Remains A-paced w/out ectopy. Sofía repeat weaning trial failed tonight. Desatted to 88% on 60% FiO2.Sofía returned to 1ppm and FiO2 to 40%. SBP goal of <150. Able to come off of levo. Nicard D/Denys d/t shunting- replaced w/ PRN hydral and lopressor. Fent increased to 100 d/t increased pain per non-verbal ICU scale and confirmation via nodding from patient. PLAN MOVING FORWARD: Wean Sofía and vent * Consult Note - Calos Lazo MD - 11/04/2023 11:14 AM EDT [facility] HYPERTENSION/ NEPHROLOGY INPATIENT CONSULTATION PATIENT: Hayden Russo : 1975 REASON FOR CONSULTATION: DONAL referred by Dr. Person Patient intubated/sedated. Hx is from record. 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 He required moderate inotropic support to separate from bypass and the EF was reported to be 45%. Subsequently creatinine rising steadily. Nonoliguric on furosemide infusion with intermittent IV thiazide. Cummulative fluid balance +3L so far. Yesterrday 2.4 in/2.5 out. In addition to cardiopulmonary bypass, RF for AKIinclude possible pna, vanc exposure, High filling pressures/fluid overload including high right sided pressures. Has been on norepi infusion currently at 6mcg/min. No urine or kidney imaging data so far. CT chest noncontrat on 11/01 found bibasilary atelectesis vs pna. Upper abd structures but kidneys not demonstrated (viewed and reviewed). Proteinuria 300 mg/dL by dipstick in September. Other current issues: Right leg peroneal DVT age indeterminate Anemia -->prbc xfusion Paced, on amio Tube feeds Marked hyperphosphatemia Preop echo 05/2023 EF 51%, Mild to mod TR; RV function decreased Prior w/u [id number] care everywhere Neg BONITA Neg Quant gold Neg HBsAB Neg RF No current facility-administered medications on file prior to encounter. Current Outpatient Medications on File Prior to Encounter Medication Sig Dispense Refill losartan (Cozaar) 25 mg tablet Take 1 tablet by mouth daily. 90 tablet 3 prasugreL (Effient) 10 mg tablet Take 1 tablet by mouth daily. 90 tablet 3 pantoprazole EC (Protonix) [address] tablet Take 1 tablet by mouth daily. 90 tablet 3 atorvastatin (LIPITOR) 80 mg Tablet Take 1 tablet by mouth every evening. 90 tablet 3 aspirin 81 mg Tablet, Chewable Take 81 mg by mouth daily. 30 tablet 3 chlorhexidine (HIBICLENS) 4 % Liquid Apply topically daily as needed. Shower from head to toe with Chlorhexidine the night before surgery . mupirocin (Bactroban) 2 % Ointment Apply 1 each topically 2 times daily. Apply a small amount to each nostril twice daily. Begin 5 days prior to the day of surgery. 22 g 0 blood-glucose meter (FREESTYLE) Kit USE TO CHECK GLUCOSE THREE TIMES DAILY 0 ONETOUCH ULTRA BLUE TEST STRIP Strip USE 1 STRIP TO CHECK GLUCOSE THREE TIMES DAILY . 11 BASAGLAR KWIKPEN U-100 INSULIN 100 unit/mL (3 mL) pen INJECT 50 UNITS SUBCUTANEOUSLY EVERY DAY AT BEDTIME 1 HUMALOG KWIKPEN 100 unit/mL Insulin Pen INJECT 20 UNITS SUBCUTANEOUSLY UP TO THREE TIMES DAILY BEFORE MEALS 3 nitroGLYcerin (NITROSTAT) 0.4 mg Tablet, Sublingual Place 1 tablet under the tongue every 5 minutesas needed for Chest pain. 90 tablet 12 MEDICATIONS: acetaminophen 1,000 mg Oral Q6H ISAMAR aspirin 81 mg Per NG tube Daily Or aspirin 300 mg Rectal Daily calcium gluconate 1 g Intravenous Once epoetin sha-epbx 10,000 Units Subcutaneous Once per day on Monday AMIOdarone 200 mg Oral Daily heparin (porcine) 7,500 Units Subcutaneous 2 times per day insulin glargine (Lantus;Semglee) (100 unit/mL) subcutaneous injection 50 Units Subcutaneous Q24H piperacillin-tazobactam 3.375 g Intravenous Q8H clopidogreL 75 mg Oral Daily atorvastatin 80 mg Oral QPM chlorhexidine 15 mL Oral BID pantoprazole EC 40 mg Oral Daily Or pantoprazole 40 mg Intravenous Daily senna-docusate 2 tablet Oral Daily shift total and Settings verification Intravenous 2 Times Daily - Shift Total albuteroL 6 puff Inhalation Q4H ISAMAR lidocaine 1 patch Transdermal Q24H Allergies: No Known Allergies PSH: Past Surgical History: Procedure Laterality Date CORONARY ANGIOPLASTY WITH STENT PLACEMENT HERNIA REPAIR PRG CATH PLMT LEFT HEART CATH & ARTS W/INJ & ANGIO IMG S&I N/A 08/04/2023 CORONARY ANGIOGRAPHY; W LHC,POSSIBLE PCI (WRVU 5.6) performed by Azul Rowley MD at [facility] CATHLABS PRO CABG, ARTERIAL, SINGLE N/A 10/30/2023 @CABG, USING ARTERIAL GRAFT;SINGLE ARTERIAL GRAFT (WRVU 33.75) performed by Timi Person MD at [facility] MAIN OR PRO CABG, ARTERY-VEIN, TWO N/A 10/30/2023 @CABG, TWO VENOUS GRAFTS & ARTERIAL GRAFT (WRVU 7.93) performed by Timi Person MD at [facility] MAIN OR PRO ENDOSCOPY W/VIDEO-ASST VEIN HARVEST, CABG N/A 10/30/2023 ENDOSCOPIC HARVEST VEIN(S) FOR CABG (WRVU 0.31) performed by Timi Person MD at [facility] MAIN OR FH: Family History Problem Relation Age of Onset Coronary Artery Disease Father 62 Hypertension Father Hyperlipidemia Father Diabetes Maternal Grandfather Diabetes Paternal Grandfather SH: Former smoker according to notes ROS: not obtainable PHYSICAL EXAM: Last value Range last 24 hrs Temperature Temp: 37.3 ??C (99.1 ??F) Temp: [37.1 ??C (98.8 ??F)-37.7 ??C (99.9 ??F)] Heart Rate Heart Rate: 80 Heart Rate: [80-82] Blood Pressure BP: 103/51 BP: (103)/(51) Respiratory Rate Resp: 20 Resp: [15-21] SpO2 SpO2: 96 % (Weaned SOFÍA to 3ppm.) SpO2: [95 %-97 %] Art BP BP (Arterial Line): 120/55 BP (Arterial Line): (92-130)/(47-57) Wt Readings from Last 3 Encounters: 11/04/23 134.6 kg (296 lb 11.8 oz) 09/22/23 123.3 kg (271 lb 14.4 oz) 09/12/23 122.1 kg (269 lb 3.2 oz) Intake/Output Summary (Last 24 hours) at 11/04/2023 1114 Last data filed at 11/04/2023 1000 Gross per 24 hour Intake 2356.63 ml Output 2840 ml Net -483.37 ml Gen: sedated on vent, not arousable to my exam Skin - No rash; incisions without erythema HEENT - clear sclera, pupils equal, ET and ND tubes Lungs: clear to auscultation ant, diminished lateral bases Heart - REg S1/S2, no murmur, gallop, or rub. JVP not reqadily seen but CVP reported to be at least12 Abd - Soft. + BS. No bruit. Non tender. Mild protuberant G-U: todd in place, urine clear/pale yellow typical of diuretic Ext - Warm. Mod edema right >left Neuro - sedated LABS: Lab Results Component Value Date WBC 12.14 (H) 11/03/2023 WBC 9.0 09/22/2023 RBC 3.26 (L) 11/03/2023 RBC 6.11 (H) 09/22/2023 HGB 6.7 (L) 11/03/2023 HGB 12.4 (L) 09/22/2023 HCT 21.5 (L) 11/03/2023 HCT 42.5 09/22/2023 MCV 66.0 (L) 11/03/2023 MCV 69.6 (L) 09/22/2023 MCH 20.6 (L) 11/03/2023 MCH 20.3 (L) 09/22/2023 MCHC 31.2 (L) 11/03/2023 MCHC 29.2 (L) 09/22/2023 PLATELET 208 11/03/2023 PLATELET 279 09/22/2023 RDWCV 17.6 (H) 11/03/2023 RDWCV 19.8 (H) 09/22/2023 Lab Results Component Value Date Sodium 141 11/03/2023 Potassium 3.7 11/04/2023 Chloride 101 11/03/2023 Carbon Dioxide 21 (L) 11/03/2023 Blood Urea Nitrogen 67 (H) 11/03/2023 Creatinine 5.66 (H) 11/03/2023 Glucose 133 11/03/2023 Latest Reference Range & Units 10/31/23 11:48 Protein, Total 6.1 - 8.0 g/dL 5.3 (L) Albumin 3.2 - 5.2 g/dL 2.9 (L) Bilirubin, Total <=1.3 mg/dL 0.3 Alkaline Phosphatase 40 - 130 unit/L 58 Aspartate Aminotransferase <=39 unit/L 24 Alanine Aminotransferase 0 - 55 unit/L 14 (L): Data is abnormally low Recent Labs 11/03/23 2353 11/03/23 1305 11/03/23 0021 11/02/23 1146 11/02/23 0002 11/01/23 1134 11/01/23 0236 10/31/23 1148 10/31/23 0137 10/30/23 0657 09/22/23 1457 08/04/23 0747 06/07/23 0540 06/06/23 0357 06/05/23 0304 06/04/23 1857 CREATININE 5.66* 5.39* 5.14* 4.98* 4.85* 4.47* 4.42* 4.00* 3.62* 2.94* 2.83* 2.39* 2.49* 2.57* 2.16* 2.07* Lab Results Component Value Date CALCIUM 7.7 (L) 11/03/2023 CALCIUM 9.3 09/22/2023 Lab Results Component Value Date PHOS 10.0 (CRIT) 11/03/2023 PHOS 3.4 10/12/2018 Component Value Date/Time SPGRAVITYUA 1.027 09/22/2023 1515 PHUADIP 6.0 09/22/2023 1515 PROTEINUADIP >=300 (A) 09/22/2023 1515 GLUCOSEU >=1000 (CRIT) 09/22/2023 1515 KETONESUA Negative 09/22/2023 1515 UROBILIUADIP Normal 09/22/2023 1515 BLOODUADIP Trace (A) 09/22/2023 1515 NITRATEUA Negative 09/22/2023 1515 LEUKOESTERUA Negative 09/22/2023 1515 BILIRUBINUA Negative 09/22/2023 1515 Prot/Cr ratio pending UA pending Urine sediment by renal consult: Large numbers of coarse granular casts, renal tubular epithelial cells and some cellular casts that appear to contain renal tubular epithelial cells. This is all consistent with acute tubular necrosis. There are also a few waxy casts consistent with his known CKD. Some of the renal tubular cells contain inclusions, but I was not able to identify specific oval fat bodies. Imaging:requested IMPRESSION/RECOMMENDATIONS Severe nonoliguric DONAL in patient with underlying CKD G4/A3. The acute kidney injury is consistent with acute tubular necrosis. As the creatinine began to rise on postop day 1, renal hypoperfusion during bypass is probably the dominant etiology. His preop creatinine of 2.9 was similar to his baseline of 2.8 in September so I do not think he entered with an DONAL in process. The underlying chronic kidney disease is almost certainly due to diabetic kidney disease although prior w/u (or available data)incomplete. Other risk factors for DONAL in addition to the cardiopulm by pass, include relative hypotension requiring pressors, fluid overload/imapired heart function with high right sided pressures which can result in renal congestion, vancomycin and piperacillin/tazobactam exposure (this combination is associated with DONAL approximately 20% of the time or more). Anemia-related to blood loss vs hemolyisis may also contribute to DONAL in the setting? I agree with a trial of epo but he is unlikely to respond in this setting due to inflammation resulting in iron trapping. Nevertheless, would support with multivitamins and check ferritin and iron saturation. Today phos markedly increased. Although we would expect hyperphosphatemia, this degree is somewhat unexpected and therefore I would r/o an unexpectedly high CK. The hypocalcemia is both reciprocal tohigh phos and also commonly observed in acute kidney injury. Please trend ionized calcium but wouldonly treat if symptoms can be identified. No urgent need for CRUISE CONSULTANT but his trend is concerning Regarding DONAL and lab abnormalities: Check CK-degree of high phos unusual at this point Check uric acid Please send UA, urine Na, urine Cr, urine urea (for FEUrea), UPC ratio, UACR Obtain renal US (can be done next week) Dose adjust all meds for severe DONAL Avoid nephrotoxins Trend labs including carrot tier, phos daily Consider hemolysis w/u if blood loss does not explain the anemia Recheck thyroid profile on amio Regarding CKD; Check HCV, HBsAntigen and core ab (neg sab in past but no complete eval) Check PTH and 25 OH vit D Save nondom arm veins, he is at risk for eventual perm renal failure (DM and CKD) * Consult Note - Ariel Santana RPH - 11/04/2023 10:44 AM EDT The pharmacist-managed vancomycin consult service will sign-off and vancomycin therapy, if it is kojo continued, must be ordered by the responsible prescriber. Pharmacists??? therapeutic drug monitoring will continue for patients receiving vancomycin. Should specific assistance be needed regarding re-initation or continuation of vancomycin therapy, please page the care area pharmacist with any questions you may have. Alternately, during off-hours you may call [phone] to contact a pharmacist. * Plan of Care - Rafael Greenfield RN - 11/04/2023 7:31 AM EDT OUTCOME EVALUATION NOTE: OUTCOME SUMMARY: A-paced throughout shift. VSS on levo. FiO2 down to 40%. x1 RBC d/t low hgb. K replaced per protocol. Cr continues to climb. Scored 0-1 on non-verbal icu pain scale. PLAN MOVING FORWARD: Wean Sofía. CRRT? * Care Management - Yovanny Scott RN - 11/03/2023 4:01 PM EDT OFFICE OF CARE MANAGEMENT PROGRESS NOTE LOS: Hospital Day 4 days Chart reviewed, care reviewed with primary team and at interdisciplinary rounds. 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 Current Living Arrangements: home/apartment/condo. Accessibility Concerns: apartment on the second floor with FOS. Current Functional Ability: Completely Dependent DME used at home: none, other (see comments) (they have walker and cane) DME Needed at Discharge: TBD, pending PT/OT recs Patient is insured through: Primary Insurance: [employer] [place] Payor: [employer] [place] / Plan: [employer] [place] SHOP / Product Type: *No Product type* / Secondary Insurance: N/A Plan for discharge is: Pending Hospital Course and PT/OT Recommendations Outpatient Agency/Support Group Needs: Homecare agency Agency Referrals: [facility] [place] [address] and Transportation: family or friend will provide Barriers to discharge: Discharge planning Psych: Adjustment to diagnosis/illness Supports: Caregiver support Financial: Financial/insurance ICU Needs: ICU specific devices / therapies, mechanically ventilated, vasoactive medications, Q1 hour interventions Plan going forward: pt remains intubated and sedated in the CVCC 4 days post-op CABGx3; d/c plan pending clinical course and PT/OT recs. RN CM will continue to monitor for d/c needs. Anticipated Date of Discharge: 11/09/2023 * Consult Note - Barbie Pelaez RD - 11/03/2023 9:33 AM EDT Nutrition Consult Note Hayden Russo is a 47 y.o. male with a PMH of inferior STEMI s/p PCI, IDDM2, HTN, HLD, CKD, former smoker. S/p CABGx3. Reason for Assessment: ICU Tube Feeding Nutrition Recommendations: VDE score < 12 (= 1.6) - lower risk for pressor related TF intolerance *Pt is on pressors which may increase risk for gastrointestinal hypoperfusion with enteral feeds. Monitor for increasing abdominal distention, constipation, elevated gastric residuals, or ileus. Peptamen Intense VHP with a goal rate of 55 mL per hour This rate is calculated to compensate for unplanned time off feedings due to potential procedures, etc. At goal, this will provide 1100 mL formula, 1100 calories, 101 grams protein, 924 mL water from formula, and 73% of the RDI's for vitamin and minerals. Daily multivitamin on above TF Propofol at current rate will provide 755 calories from lipid daily, or about 69 grams of fat/day. Monitor TG while on Propofol. Mg and phos with daily labs Monitor BM - optimize regimen with goal of 1 [id number] while on TF Monitor BG - goal of 140-180 Daily weights I was able to discuss plan with provider [facility] [id number] . Current Nutrition Regimen: Active Orders Diet NPO diet (Hold Meds) Frequency: Effective Now Number of Occurrences: Until Specified Assessment: Lab Results Component Value Date NA 140 11/03/2023 NA 138 09/22/2023 K 3.6 11/03/2023 K 4.9 09/22/2023 CL 101 11/03/2023 CL 106 09/22/2023 CO2 22 11/03/2023 CO2 22 09/22/2023 BUN 58 (H) 11/03/2023 BUN 34 (H) 09/22/2023 CREATININE 5.14 (H) 11/03/2023 CREATININE 2.83 (H) 09/22/2023 ESTGFR 27 (L) 09/22/2023 MAGNESIUM 0.98 06/07/2023 CALCIUM 7.5 (L) 11/03/2023 CALCIUM 9.3 09/22/2023 AST 24 10/31/2023 AST 19 09/22/2023 ALT 14 10/31/2023 ALT 18 09/22/2023 ALKPHOS 58 10/31/2023 ALKPHOS 97 09/22/2023 BILITOT 0.3 10/31/2023 BILITOT 0.3 09/22/2023 BILIDIR 0.1 09/22/2023 TRIG 405 06/05/2023 HA1C 9.5 (H) 10/31/2023 HA1C 11.2 (H) 06/05/2023 Lab Results Component Value Date POCGLU 126 11/03/2023 POCGLU 115 11/03/2023 POCGLU 129 11/03/2023 POCGLU 138 11/03/2023 POCGLU 152 11/03/2023 POCGLU 155 11/03/2023 POCGLU 153 11/02/2023 POCGLU 174 11/02/2023 POCGLU 158 11/02/2023 POCGLU 141 11/02/2023 Patient Lines/Drains/Airways Status Active Nutritional LDAs Name Placement date Placement time Site Days Naso/Oral Tube 10/30/23 1200 [place] sump;orogastric left mouth 10/30/23 1200 left mouth 4 PIV 10/30/23 0658 18 gauge brachial vein, left 10/30/23 0658 -- 4 Percutaneous Central Line 10/30/23 0830 Single Lumen 9 Fr internal jugular vein, right 10/30/23 0830 -- 4 Pulmonary Artery Catheter 10/30/23 0830 standard thermodilution catheter;VIP Right internal jugularvein 10/30/23 0830 -- 4 Urethral Catheter 10/30/23 0750 latex;hydrophilic coated 14 5 10 10/30/23 0750 -- 4 Oxygen Therapy / Airway Device: Ventilator Shift Pressure Injury Prevention Occiput: No Injury Thoracic Spine: No Injury Sacral: No Injury Ischial - left: No Injury Ischial - right: No Injury Heel - left: No Injury Heel - right: No Injury Elbow - left: No Injury Elbow - right: No Injury Intake/Output Summary (Last 24 hours) at 11/03/2023 1038 Last data filed at 11/03/2023 1000 Gross per 24 hour Intake 2223.77 ml Output 2050 ml Net 173.77 ml Relevant medications: Continuous tube feeding diet AMIOdarone 0.5 mg/min (11/03/23 1000) nitric oxide dexmedeTOMIDine Stopped (11/01/23 2206) furosemide 20 mg/hr (11/03/23 1023) vasopressin Stopped (11/01/23 1313) propofoL 50 mcg/kg/min (11/03/23 1000) fentaNYL 75 mcg/hr (11/03/23 1000) insulin regular human 1 Units/hr (11/03/23 1005) EPINEPHrine Stopped (11/01/23 1645) niCARdipine Stopped (11/02/23 1330) NORepinephrine 2 mcg/min (11/03/23 1000) Scheduled chlorothiazide 500 mg Intravenous Once AMIOdarone 200 mg Oral Daily warfarin 5 mg Oral Once warfarin (Coumadin) daily order reminder Oral Q24H heparin (porcine) 7,500 Units Subcutaneous 2 times per day insulin glargine (Lantus;Semglee) (100 unit/mL) subcutaneous injection 50 Units Subcutaneous Q24H piperacillin-tazobactam 3.375 g Intravenous Q8H clopidogreL 75 mg Oral Daily acetaminophen 975 mg Oral Q6H ISAMAR atorvastatin 80 mg Oral QPM chlorhexidine 15 mL Oral BID pantoprazole EC 40 mg Oral Daily Or pantoprazole 40 mg Intravenous Daily senna-docusate 2 tablet Oral Daily shift total and Settings verification Intravenous 2 Times Daily - Shift Total albuteroL 6 puff Inhalation Q4H ISAMAR aspirin 81 mg Oral Daily Or aspirin 300 mg Rectal Daily lidocaine 1 patch Transdermal Q24H PRN vancomycin- intermittent dosing per levels, glucose 40% oral geL OR dextrose OR glucagon, sodium chloride 0.9%, sodium chloride 0.9%, ondansetron, bisacodyL, fentaNYL (PF) OR fentaNYL, fentaNYL (PF) OR fentaNYL, potassium chloride in water OR potassium chloride in water OR potassium chloride in water, insulin regular human, HYDROmorphone OR HYDROmorphone, HYDROmorphone, HYDROmorphone Anthropometrics: Admit Weight: 128.91 kg Estimated body mass index is 38.43 kg/m?? as calculated from the following: Height as of this encounter: 177.8 cm (5' 10). Weight as of this encounter: 121.5 kg (267 lb 13.7 oz). [place] Body Weight (IBW) (kg): 75.45 Wt Readings from Last 10 Encounters: 11/03/23 121.5 kg (267 lb 13.7 oz) 09/22/23 123.3 kg (271 lb 14.4 oz) 09/12/23 122.1 kg (269 lb 3.2 oz) 08/04/23 121.2 kg (267 lb 4.8 oz) 06/07/23 118.5 kg (261 lb 3.9 oz) 11/27/18 99.8 kg (220 lb) 10/14/18 99.8 kg (220 lb 0.3 oz) Patient Vitals for the past 168 hrs: Weight 11/03/23 0600 121.5 kg (267 lb 13.7 oz) 11/02/23 0402 133.9 kg (295 lb 3.1 oz) 11/01/23 0200 126.2 kg (278 lb 3.5 oz) 10/31/23 0500 (!) 137 kg (302 lb) 10/30/23 0659 128.9 kg (284 lb 3.2 oz) Weight Source: Bed Estimated / Assessed Needs: Kcal / K - 1944 Kcal (12 Kcal/Kg - 16 Kcal/Kg) Estimated Protein Needs: 136 g - 151 g (1.8 g/Kg - 2.0 g/Kg IBW) Nutrition intake and intake history / interview: 11/02: Consulted for TF recs. Per team, starting trickle TF today. NPO x 5 days. Nutrition Focused Physical Exam: Not performed Reason NFPE Not Performed: Patient not available at time of assessment. Malnutrition Diagnosis: Not enough data to assess (CHANEL Feliz J Parenteral Enteral Nutr. 2012 June; 36(3): 273-83) Nutrition to continue to follow up while inpatient Thank you, Barbie Bernard. Benigno, MS, RD, LD, [facility] Clinical Nutrition * Plan of Care - Rafael Greenfield RN - 11/03/2023 5:17 AM EDT OUTCOME EVALUATION NOTE: OUTCOME SUMMARY: NSR throughout shift w/out ectopy. BP goal maintained w/ levo. Sedation continued throughout the night. Fent increased to 75 d/t nodding when asked if he had pain when awake. Pressor requirement increased throughout night. Minimal secretions both in-line and oral. Amio and abx continued. FiO2 kept @ 50% throughout night, Sofía weaned to 5. Family updated at start of shift. PLAN MOVING FORWARD: Diuresis vs CVVH? * Care Management - Eveline King MSW - 11/02/2023 12:13 PM EDT Office of Care Management: PRINTED CIRCUIT DESIGNER received a SW Consult from nursing. PRINTED CIRCUIT DESIGNER attempted to call patient's spouse to have a conversation about finances. Left message. Patient's spouse, Alina [phone], was able to return my phone call. PRINTED CIRCUIT DESIGNER discussed with Alina the option to use financial assistance from [facility]. PRINTED CIRCUIT DESIGNER will leave a pamphlet regarding [facility] assistance, in patient's room. Patient's spouse is trying to get here on Monday to visit with her spouse, she does not drive. PRINTED CIRCUIT DESIGNER encouraged Alina to communicate with the insurance provider to accessall benefits. * Plan of Care - Bassam Aguirre RN - 11/01/2023 9:07 PM EDT NAEO. Remains on light sedation, following commands and GARCIA. CM cont to show SR/ST. CI-3.0. Remainsintubated on P/S 01/29 @65%. Off pressors, remaining on low doses of prop and fentanyl. Still on insulin, milrinone, and lasix. Problem: Fall Injury Risk Goal: Absence of Fall and Fall-Related Injury Outcome: Ongoing (Interventions Implemented as Appropriate) Problem: Adult Inpatient Plan of Care Goal: [...] Outcome: Ongoing (Interventions Implemented as Appropriate) Problem: Activity Intolerance (Cardiovascular Surgery) Goal: Improved Activity Tolerance Outcome: Ongoing (Interventions Implemented as Appropriate) Problem: Adjustment to Surgery (Cardiovascular Surgery) Goal: Optimal Coping with Heart Surgery Outcome: Ongoing (Interventions Implemented as Appropriate) Problem: Bleeding (Cardiovascular Surgery) Goal: Absence of Bleeding Outcome: Ongoing (Interventions Implemented as Appropriate) Problem: Bowel Elimination Impaired (Cardiovascular Surgery) Goal: Effective Bowel Elimination Outcome: Ongoing (Interventions Implemented as Appropriate) Problem: Cardiac Function Impaired (Cardiovascular Surgery) Goal: Effective Cardiac Function Outcome: Ongoing (Interventions Implemented as Appropriate) Problem: Cerebral Tissue Perfusion Risk (Cardiovascular Surgery) Goal: Effective Cerebral Perfusion Outcome: Ongoing (Interventions Implemented as Appropriate) Problem: Fluid Imbalance (Cardiovascular Surgery) Goal: Fluid Balance Outcome: Ongoing (Interventions Implemented as Appropriate) Problem: Infection (Cardiovascular Surgery) Goal: Absence of Infection Signs and Symptoms Outcome: Ongoing (Interventions Implemented as Appropriate) Problem: Ongoing Anesthesia Effects (Cardiovascular Surgery) Goal: Anesthesia/Sedation Recovery Outcome: Ongoing (Interventions Implemented as Appropriate) Problem: Pain (Cardiovascular Surgery) Goal: Acceptable Pain Control Outcome: Ongoing (Interventions Implemented as Appropriate) Problem: Postoperative Nausea and Vomiting (Cardiovascular Surgery) Goal: Nausea and Vomiting Relief Outcome: Ongoing (Interventions Implemented as Appropriate) Problem: Postoperative Urinary Retention (Cardiovascular Surgery) Goal: Effective Urinary Elimination Outcome: Ongoing (Interventions Implemented as Appropriate) Problem: Respiratory Compromise (Cardiovascular Surgery) Goal: Effective Oxygenation and Ventilation Outcome: Ongoing (Interventions Implemented as Appropriate) Problem: Restraint, Nonbehavioral (Nonviolent) Goal: Discontinuation Criteria Achieved Outcome: Ongoing (Interventions Implemented as Appropriate) * Initial Assessments - Barbie Knott RN - 11/01/2023 10:21 AM EDT Office of Care Management Initial Assessment Barbie Knott RN reviewed record and discussed patient with Care Team. Source of Information: Team, bedside nurse, medical record, and Spouse (pt is intubated and sedated) Introduced self/reviewed role; services accepted. Admitted From: Home Reason for Hospitalization: CABG Past medical History: Past Medical History: Diagnosis Date Coronary artery disease Diabetes Hypertension Hospitalizations Within the Past 30 Days: no previous admission in last 30 days Current Decision-Making Capacity: Self If AD's have not been completed the following surrogate would be surrogate decision maker per [place] surrogate decision making law. (Only good for 180 days) Any patient receiving care in [place] must abide by [place] law. The hierarchy for surrogate decision making [...] (i) The agent with financial power of collections attorney or a conservator appointed in accordance with RSA 464-A. (j) The guardian of the patient???s estate. 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 Current Living Arrangements: home/apartment/condo. Accessibility Concerns:apartment on the second floor with FOS. In the last 12 months, was there a time when you were not able to pay the mortgage or rent on time?: No In the past 12 months, how many times have you moved where you were living?: 0 At any time in the past 12 months, were you homeless or living in a residential (including now)?: No In the past 12 months has the [employer] gas, oil, or water [place] threatened to shut off services in your home?: No Within the past 12 months, you worried that your food would run out before you got the money to buymore.: Never true Within the past 12 months, the food you bought just didn't last and you didn't have money to get more.: Never true Resource / Environmental Concerns: Resource/Environmental Concerns: financial Financial Concerns: other (see comments) (concerned re financial burden pt's hospitalization and illness will put on them) Home Accessibility Concerns: stairs to enter home In the past 12 months, has lack of transportation kept you from medical appointments or from getting medications?: No In the past 12 months, has lack of transportation kept you from meetings, work, or from getting things needed for daily living?: No Current DME: none, other (see comments) (they have walker and cane) Home Address confirmed as: [address] [place] [address] [place] [address] Social & Family Supports: All names listed below confirmed with patient as current and correct Extended Emergency Contact Information Primary Emergency Contact: Celso Russo Relation: Father Secondary Emergency Contact: Beck Muir Mobile Relation: Friend Mother: Delia Russo Mobile Current Care Provided by: self Provides Primary Care For: no one Caregiver if needed: spouse Quality of Family relationships: helpful, involved, supportive Community Resources being provided currently: homecare agency Behavioral Health History: hx of anxiety/depression managed with medication Substance Use/Abuse confirmed: Social History Tobacco Use Smoking Status Former Current packs/day: 1.00 Average packs/day: 1 pack/day for 10.0 years (10.0 ttl pk-yrs) Types: Cigarettes Smokeless Tobacco Never 0 No problems reported 1-2 Low level 3-5 Moderate level 6-8 Substantial level 9- 10 Severe level 0 to 7 points: Low risk 8 to 15 points: Medium risk 16 to 19 points: High risk 20 to 40 points: Addiction likely Health/Prescription Coverage: Primary Insurance: [facility] Payor: [facility] / Plan: [facility] SHOP / Product Type: *No Product type* / Secondary Insurance: N/A ; Prescription Coverage: Yes Preferred Pharmacy: [facility] [address] [place] [id number] [place] Status: Patient is a : No Primary Care Provider confirmed: Bandar Hahn MD [phone] Patient/Caregiver Goals of Treatment: return home to family Potential Needs for Transition of Care: home health care Agency Referrals: I have met with the field service representative to: discuss discharge planning needs. provide the [facility], Office of Care Management letter from the Component Prep Operator pertaining to rehab referrals. provide a letter describing our affiliations within the [facility] and educate about their right to choose where referrals are sent. provide a list of Home Health Agencies / Durable Medical Equipment vendors which serve their preferred geographic area. provided patient with [facility] Star Quality Rating handout. They have requested referrals to: [facility] [address], [place] [address] and Note routed to a Quill Reamer who will communicate referrals to facilities and provide any required information. Transportation: other (see comments) ( has MS and does not drive, she has arranged help from friends after he discharges) Transportation Anticipated: family or friend will provide Concerns to be Addressed: discharge planning, financial/insurance Assessment: Patient is a 47 y.o. male with CAD who is 2 Days Post-Op CABGx3. PMH of inferior STEMI s/p PCI, IDDM2, HTN, HLD, CKD, former smoker.admitted to cardiac surgery service Plan going forward: Referral sent to [facility] for financial resources/support. Will continue to monitor for discharge needs. Care Management team will continue to follow and assist with discharge planing and coordination of care as indicated. Barbie Knott RN * Plan of Care - Lore Hoyt RN - 11/01/2023 4:41 AM EDT OUTCOME EVALUATION NOTE: OUTCOME SUMMARY: K of 5.7 treated with insulin and dextrose. K recheck of 4.9 Insulin gtt titrated up throughout thenight. Lasix gtt increased to 15. UOP ~ 175/hr. Epi kept at 4, mil at 0.125. CI = 2.8. PLAN MOVING FORWARD: Wean sedation as possible. * Consult Note - Michelle Pretty APRN - 10/31/2023 8:58 AM EDT Diabetes Management Team Inpatient Consult Date of Consultation: 10/31/2023 Consult Requested by: Cardiac Surgery - GLENIS Maddox Reason for Consultation: Hayden Russo is a 47 y.o. male from [place], [place], with PMH significant for ASCVD-CAD (2019 STEMI w/PCI - RCA stent, then occluded and re-stented 05/2023), CKD (eGFR 33), IDDM2 poorly controlled (A1c 11.2% 05/2023), who was admitted on 10/30/2023 currently being treated for re- occlusion of stents, now s/p 10/29 CABG X3. 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 Inpatient, he is requiring high-amounts of insulin with poor glucose control. Ambrocio is intubated, so history obtained from 05/2023 admission, seen by [facility], and [facility] chart. We can confirm his home routines when extubated. Diabetes History: Hayden Russo has had diabetes since 2003 per prior DM consult. Current outpatient diabetes regimen: Diabetes Provider: PCP; Medications: Per [facility] dispense records - needs verifying with patient Farxiga 10mg QD - dispensed 10/30/2023 - unclear if this was stopped 3d prior to surgery - not in pre-anesthesia call note Insulin glargine (Basaglar) pen - 50u HS - dispensed 10/17/2023 Humalog 20u TID w/meals - dispensed 10/17/2023 ??Ozempic - 0.25mg dispensed 04/2023 - unclear if taking. 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 Kidneys: CKD - last eGFR 33 (07/2023) and 26 on admission, unknown proteinuria Feet: unknown Sensory: unknown Autonomic: unknown Cardiac: Severe CAD Current Hospital Diabetes Care: Medications: Regular insulin titratable drip - very high needs 22-26u since midnight Regular insulin bolus - 44u since midnight Monitoring: BG q 1 hrs Diet: NPO Diet supplements: none Relevant Meds: Epinephrine in D5% (10/29-present); Milrinone in D5% (10/29-present); Norepinephrine (10/30 2355-present); Vasopressin (10/30-present) Prior: 10/29 1811 - D10 w/10u Regular insulin for hyperkalemia; Norepinephrine in D5% 10/29-0003 10/30); ROS: Unable to obtain - intubated. PMH Past Medical History: Diagnosis Date Coronary artery disease Diabetes Hypertension Family Hx Family History Problem Relation Age of Onset Coronary Artery Disease Father 62 Hypertension Father Hyperlipidemia Father Diabetes Maternal Grandfather Diabetes Paternal Grandfather Social Documentation Social History Social History Narrative Not on file Current Hospital Medications: clopidogreL 75 mg Oral Daily atorvastatin 80 mg Oral QPM chlorhexidine 15 mL Oral BID pantoprazole EC 40 mg Oral Daily Or pantoprazole 40 mg Intravenous Daily senna-docusate 2 tablet Oral Daily [START ON 11/01/2023] magnesium hydroxide 1,200 mg Oral Daily shift total and Settings verification Intravenous 2 Times Daily - Shift Total acetaminophen 975 mg Oral Q6H ISAMAR albuteroL 6 puff Inhalation Q4H ISAMAR aspirin 81 mg Oral Daily Or aspirin 300 mg Rectal Daily lidocaine 1 patch Transdermal Q24H Infusions: vasopressin 0.06 Units/min (10/31/23 0800) sodium chloride 0.9% Stopped (10/31/23 0800) propofoL 40 mcg/kg/min (10/31/23 0800) fentaNYL 75 mcg/hr (10/31/23 0800) insulin regular human 22 Units/hr (10/31/23 0841) milrinone 0.125 mcg/kg/min (10/31/23 0800) EPINEPHrine 4 mcg/min (10/31/23 0937) niCARdipine Stopped (10/30/23 1330) NORepinephrine 13 mcg/min (10/31/23 0834) PRN: glucose 40% oral geL OR dextrose OR glucagon, sodium chloride 0.9%, sodium chloride 0.9%, ondansetron, [START ON 11/02/2023] bisacodyL, fentaNYL (PF) OR fentaNYL, fentaNYL (PF) OR fentaNYL, potassium chloride in water OR potassium chloride in water OR potassium chloride in water, insulin regular human, HYDROmorphone OR HYDROmorphone, HYDROmorphone, HYDROmorphone Allergy: No Known Allergies Social history: Social History Tobacco Use Smoking status: Former Current packs/day: 1.00 Average packs/day: 1 pack/day for 10.0 years (10.0 ttl pk-yrs) Types: Cigarettes Smokeless tobacco: Never Substance Use Topics Alcohol use: Not Currently Comment: Pt reports I haven't had a beer in months Drug use: Never Family history: Family History Problem Relation Age of Onset Coronary Artery Disease Father 62 Hypertension Father Hyperlipidemia Father Diabetes Maternal Grandfather Diabetes Paternal Grandfather Vitals Last value Range last 24 hrs Temperature Temp: 37.4 ??C (99.3 ??F) Temp: [34.9 ??C (94.8 ??F)-37.8 ??C (100 ??F)] Heart Rate Heart Rate: 95 Heart Rate: [73-114] Blood Pressure BP: 149/85 BP: -- Respiratory Rate Resp: 20 Resp: [10-27] SpO2 SpO2: 93 % SpO2: [92 %-99 %] Wt Readings from Last 3 Encounters: 10/31/23 (!) 137 kg (302 lb) 09/22/23 123.3 kg (271 lb 14.4 oz) 09/12/23 122.1 kg (269 lb 3.2 oz) Physical Exam: Gen: NAD, intubated and sedated Labs: Recent Results (from the past 12 hour(s)) POC, GLUCOSE Result Value Glucometer, POC 384 (H) POC, GLUCOSE Result Value Glucometer, POC 358 (H) POC, GLUCOSE Result Value Glucometer, POC 349 (H) POC, GLUCOSE Result Value Glucometer, POC 330 (H) Troponin - Single Result Value Troponin-T, High Sensitivity 834 (H) CBC (with Diff) Result Value White Blood Cell 17.30 (H) Red Blood Cell 5.27 Hemoglobin 10.6 (L) Hematocrit 35.7 (L) Mean Cell Volume 67.7 (L) Mean Cell Hemoglobin 20.1 (L) Mean Cell Hemoglobin Concentration 29.7 (L) Platelet 274 Mean Platelet Volume 10.4 RDW Standard Deviation 44.9 RDW coefficient of variation 19.5 (H) NRBC% auto 0.0 NRBC Absolute 0.00 Neutrophil % 78.8 Neutrophil Absolute (ANC) - Automated 13.63 (H) Lymph % 10.2 Lymph Absolute 1.77 Monocyte % 9.7 Monocyte Absolute 1.68 (H) Eos % 0.2 Eos Absolute 0.04 Basophil % 0.3 Baso Absolute 0.05 Immature Gran % 0.8 Immature Gran Absolute 0.13 (H) Basic Metabolic Panel Result Value Glucose 298 (H) Blood Urea Nitrogen 41 (H) Creatinine 3.62 (H) Sodium 135 Potassium 4.8 Chloride 102 Carbon Dioxide 20 (L) Anion Gap 13 Calcium 8.4 (L) Est Glomerular Filtration Rate - Male 20 Scan, Peripheral Blood Result Value RBC Morphology Abnormal Platelet Estimate Normal Macrocyte 1-5 Microcyte 6-10 Polychromasia Present Ovalocytes 1-5 [place] cells 1-5 Blood Gas, Arterial POC Result Value pH, Arterial 7.30 (L) PCO2, Arterial 44 PO2, Arterial 65 (L) Bicarbonate, Arterial 21.1 Base Excess, Arterial -5.3 (L) Hemoglobin, Arterial 11.4 (L) Oxyhemoglobin, Arterial 90.9 (L) Carboxyhemoglobin, Arterial 0.5 Methemoglobin, Arterial 0.3 Sodium, Arterial 132 (L) Potassium, Arterial 4.7 Chloride, Arterial 102 Lactate, Arterial 2.2 Fraction of Inspired Oxygen 50 PF Ratio 130 IONIZED CALCIUM, ARTERIAL 1.21 Glucose, Arterial 302 (H) Blood Gas, Arterial POC Result Value pH, Arterial 7.28 (CRIT) PCO2, Arterial 46 (H) PO2, Arterial 77 (L) Bicarbonate, Arterial 21.1 Base Excess, Arterial -5.6 (L) Hemoglobin, Arterial 10.8 (L) Oxyhemoglobin, Arterial 93.2 (L) Carboxyhemoglobin, Arterial 0.3 Methemoglobin, Arterial 0.3 Sodium, Arterial 133 (L) Potassium, Arterial 4.7 Chloride, Arterial 103 Lactate, Arterial 2.0 Fraction of Inspired Oxygen 60 PF Ratio 128 IONIZED CALCIUM, ARTERIAL 1.18 Glucose, Arterial 270 (H) Cooximetry, POC Result Value pO2, Coox 29 Hemoglobin, Coox 10.9 (L) Oxyhemoglobin, Coox 53.4 Carboxyhemoglobin, Coox 0.9 Methemoglobin, Coox 0.3 POC, GLUCOSE Result Value Glucometer, POC 303 (H) POC, GLUCOSE Result Value Glucometer, POC 273 (H) Blood Gas, Arterial POC Result Value pH, Arterial 7.31 (L) PCO2, Arterial 44 PO2, Arterial 76 (L) Bicarbonate, Arterial 21.8 Base Excess, Arterial -4.5 (L) Hemoglobin, Arterial 10.8 (L) Oxyhemoglobin, Arterial 93.2 (L) Carboxyhemoglobin, Arterial 0.6 Methemoglobin, Arterial 0.3 Sodium, Arterial 132 (L) Potassium, Arterial 4.9 Chloride, Arterial 103 Lactate, Arterial 2.0 Fraction of Inspired Oxygen 60 PF Ratio 127 IONIZED CALCIUM, ARTERIAL 1.15 Glucose, Arterial 220 (H) POC, GLUCOSE Result Value Glucometer, POC 208 (H) POC, GLUCOSE Result Value Glucometer, POC 196 Potassium Result Value Potassium 5.7 (H) Blood Gas, Arterial POC Result Value pH, Arterial 7.30 (L) PCO2, Arterial 48 (H) PO2, Arterial 79 (L) Bicarbonate, Arterial 23.0 Base Excess, Arterial -3.4 (L) Hemoglobin, Arterial 10.9 (L) Oxyhemoglobin, Arterial 94.0 Carboxyhemoglobin, Arterial 0.5 Methemoglobin, Arterial 0.3 Sodium, Arterial 132 (L) Potassium, Arterial 5.6 (H) Chloride, Arterial 103 Lactate, Arterial 2.1 Fraction of Inspired Oxygen 60 PF Ratio 132 IONIZED CALCIUM, ARTERIAL 1.15 Glucose, Arterial 197 POC, GLUCOSE Result Value Glucometer, POC 177 Lab Results Component Value Date BUN 41 (H) 10/31/2023 BUN 34 (H) 09/22/2023 CREATININE 3.62 (H) 10/31/2023 CREATININE 2.83 (H) 09/22/2023 GLUCOSE 298 (H) 10/31/2023 GLUCOSE 230 (H) 09/22/2023 GLUCFASTING 211 (H) 08/04/2023 ESTGFR 27 (L) 09/22/2023 Lab Results Component Value Date HA1C 11.2 (H) 06/05/2023 No results found for: MICROALBUR Lab Results Component Value Date CHLPL 128 06/05/2023 Lab Results Component Value Date HDL 25 06/05/2023 Lab Results Component Value Date LDLCHOL Not Calculated 06/05/2023 Lab Results Component Value Date TRIG 405 06/05/2023 Lab Results Component Value Date CHOLHDL 4.9 10/13/2018 Recent Labs 10/31/23 1015 10/31/23 0754 10/31/23 0653 10/31/23 0459 10/31/23 0357 10/31/23 0100 10/30/23 2356 10/30/23 2302 10/30/23 2236 10/30/23 2206 [id number]/[id number] POCGLU 177 196 208* 273* 303* 330* 349* 358* 384* 420* 395* 448* Calculated Serum osm: 305; ASSESSMENT: Hayden Russo is a 47 y.o. years old male with PMH significant for IDDM2 (Last A1C of 11.2% 05/2023) who was admitted on 10/30/2023 for re-occlusion of stents, now s/p 10/29 CABG X3. Diabetes poorlycontrolled and complicated by acute illness. Currently variable blood glucose levels while hospitalized requiring adjustment of insulin regimen and DM medications. Ambrocio has chronic poor DM control and insulin dependant prior to surgery. He was using basal/bolus insulin, and based on [employer], likely taking ~100u/day total, which is consistent with weight-based estimates. Unclear if he is on Ozempic, which is also on his list. [employer] also notes [id number] QD for >1year with recent dispense dates, but no note of stopping it 3 days prior to surgery to avoid Euglycemic DKA risk. Anion gap has been mildly elevated (13) with serum Osm of 305, also in the setting of CKD. Currently, he has multiple dextrose sources and fluids running, so recommend close monitoring of anion gap to watch for possible acidosis, and consider BHOB if anion gap continues over 12. He has required very high insulin doses so far (220u in last 8 hrs), with BG now trending down under 200, likely due to dextrose, pressors, and stress hyperglycemia. He will need to stay on insulin drip until more stable. Once he's able to start taking PO, recommend starting carb-based meal insulin to avoid reactive insulin drip adjustments. Weight-based estimate baed on BMI 0.7u/kg/day = TDD 96u (basal ~45u, ICR 1:5g, ISF 1:15). Home basal was 50u, so until closer to transition to SQ insulin, 45u QD would be a conservative starting point. We will continue to follow along as his course evolves. Team updated with recommendations. RECOMMENDATIONS: Continue Regular insulin titratable drip Continue Regular insulin boluses When able to take PO, recommend adding Carb Controlled 60/60/75g diet and Lispro Meal-associated 1:7g (range 0-15). When ready to wean off drip: 1. Insulin Glargine dose to be given AT LEAST 2 hours prior to drips discontinuation Due to high insulin needs currently on drip with pressors and dextrose sources, dose will need to be determined closer to transition, or use weight-based dose (insulin glargine 45u QD) 2. 2 hours after insulin glargine given, BEFORE stopping drip: Drip rate must be less than 2 units/hour Glucose must be less than 200mg/dL If above criteria are met at the 2hr jg, drip can be discontinued and lispro correction insulin needs to be added (likely 1:15 >140 Q4hrs). If above criteria not met, continue the drip until criteria met to stop the drip Monitoring: BG q 1 hrs Diet: NPO Lab: Recommend updated A1c Discharge Planning/salvage determiner diabetes care: Medications - Outpatient treatment regimen recommendations pending based on the hospital course. Home: These meds/doses need clarification when patient able to communicate. Farxiga 10mg QD - dispensed 10/30/2023 Insulin glargine (Basaglar) pen - 50u HS - dispensed 10/17/2023 Humalog 20u TID w/meals - dispensed 10/17/2023 ??Ozempic - 0.25mg dispensed 04/2023 - unclear if taking. Monitoring BG tid ac & hs Follow-up: PCP Thank you for allowing us to provide care for your patient 80 minutes were spent over the course of the day with this patient encounter including time spent in chart review and relevant lab result review, assessment of and counseling with the patient on diabetes and treatment plan, reviewing all glucose and insulin data, and coordination with the consulting service. Michelle Pretty APRN, DNP, -[facility] Inpatient Diabetes Management Team Team pager #[phone] * Plan of Care - Fritz Cabral RN - 10/31/2023 3:33 AM EDT OUTCOME EVALUATION NOTE: OUTCOME SUMMARY: Pt received intubated/sedated. ST on tele, Vasoactive medications titrated per MAR with guidance from section forest fire warden provider: Vasopressin added, High concentration Norepinephrine ordered to reduce IV intake. Milrinone down-titrated (0.375->0.125) and Epinephrine up-titrated (2->4), CI remained >2. Received on SIMV PEEP 8 with occasional double-stacking and consistant over breathing. Trial of Pressure support, PEEP 8 and titrated pressure support to maintain adequate tidal volumes resulted in improved vent synchrony; however, returned to SIMV PEEP 8 following serial ABGs with worsening acidosis. Set FiO2 increased (40->60%) due to poor Po2s. Portable CXR obtained. Persistent hyperglycemia managed with Insulin infusion/Bolus protocol per APR. Hyperkalemia normalized with ordered interventions. Urine output ~30cc/Hr. PLAN MOVING FORWARD: Pending course, ECHO, Monitor Labs, Pulmonary Hygiene, D/C planning INDIVIDUALIZED FALL PREVENTION INTERVENTIONS: Patient-specific fall risk factors per assessment: [current deficits]: Sedation/Pain Medications, Sternal Precautions, Oxygen Therapy, Vasoactive Medications CPG GOAL OUTCOME EVALUATION: ongoing * Brief Op Note - Timi Person MD - 10/30/2023 12:22 PM EDT Brief Operative Note Patient Name: Hayden Russo : [id number] MR#: [id number] Case Date: 10/30/2023 Surgeon: Surgeons and Role: * Timi Person MD - Primary * He Styles PA - Physician Data Communications Analyst * Naila Rodríguez PA - Physician Data Communications Analyst Preoperative diagnosis: ASCVD Postoperative diagnosis: ASCVD, severe diffuse epicardial coronary disease. There was significant diffuse RV anterior wall scar and inferior wall scar. His PDA was quite small. He had a surprisingly diffusely diseased LAD as well. He was from bypass on moderate inotropic support with unchanged EF about 45%. He has moderate RV dysfunction. Procedure(s) (LRB): ENDOSCOPIC HARVEST VEIN(S) FOR CABG (WRVU 0.31) (N/A) @CABG, USING ARTERIAL GRAFT;SINGLE ARTERIAL GRAFT (WRVU 33.75) (N/A) @CABG, TWO VENOUS GRAFTS & ARTERIAL GRAFT (WRVU 7.93) (N/A) CABG x 3 GREENWOOD-LAD SVG->OM2 SVG->PDA Anesthesia: General/ Rassias Findings: ASCVD, severe diffuse epicardial coronary disease. There was significant diffuse RV anterior wall scar and inferior wall scar. His PDA was quite small. He had a surprisingly diffusely diseased LAD as well. He was from bypass on moderate inotropic support with unchanged EF about 45%. He has moderate RV dysfunction. Intake: Intraprocedure Crystalloid Total Intake lactated ringers 500.00 mL sodium chloride 0.9% 500.00 mL Cell Saver Volume 754 mL Total Intake 1754 mL Output Urine Output 250 mL Blood Loss 754 mL Total Output 1004 mL Net Net Volume 750 mL Transfusion No data found in the last 1 encounters. Output: Estimated Blood Loss: 754 mL Urine Output:: 250 mL Other Output: (no other output recorded) Drains: Mediastinal and Pleural (L) Specimens removed during surgery: None Disposition: [facility] Condition: doing well without problems Attestation: Case Date: 10/30/2023 I was present and I participated during the entire procedure (does not need to include opening and closing). Timi Person MD [phone] * Op Note - Timi Person MD - 10/30/2023 8:47 AM EDT [facility] Operative Note Patient Name: Hayden Russo : [id number] MR#: [id number] Case Date: 10/30/2023 Surgeon: Surgeons and Role: * Timi Person MD - Primary * He Styles PA - Physician Data Communications Analyst * Naila Rodríguez PA - Physician Data Communications Analyst Preoperative diagnosis: ASCVD Postoperative diagnosis: ASCVD, severe diffuse epicardial coronary disease. There was significant diffuse RV anterior wall scar and inferior wall scar. His PDA was quite small. He had a surprisingly diffusely diseased LAD as well. He was from bypass on moderate inotropic support with unchanged EF about 45%. He has moderate RV dysfunction. Procedure(s) (LRB): ENDOSCOPIC HARVEST VEIN(S) FOR CABG (WRVU 0.31) (N/A) @CABG, USING ARTERIAL GRAFT;SINGLE ARTERIAL GRAFT (WRVU 33.75) (N/A) @CABG, TWO VENOUS GRAFTS & ARTERIAL GRAFT (WRVU 7.93) (N/A) CABG x 3 GREEN[place]OD-LAD SVG->OM2 SVG->PDA Anesthesia: General/ Rassias Findings: ASCVD, severe diffuse epicardial coronary disease. There was significant diffuse RV anterior wall scar and inferior wall scar. His PDA was quite small. He had a surprisingly diffusely diseased LAD as well. He was from bypass on moderate inotropic support with unchanged EF about 45%. He has moderate RV dysfunction. Intake: Intraprocedure Crystalloid Total Intake lactated ringers 500.00 mL sodium chloride 0.9% 500.00 mL Cell Saver Volume 754 mL Total Intake 1754 mL Output Urine Output 250 mL Blood Loss 754 mL Total Output 1004 mL Net Net Volume 750 mL Transfusion No data found in the last 1 encounters. Output: Estimated Blood Loss: 754 mL Urine Output:: 250 mL Other Output: (no other output recorded) Drains: Mediastinal and Pleural (L) Specimens removed during surgery: None Disposition: [facility] Procedure Description: The patient was brought to the operating room and placed on the operating table in supine position.Following the induction of a general anesthetic by endotracheal technique and the placement of appropriate monitoring lines he was prepped and draped using a sterile prep. Simultaneous incisions weremade in his midsternal region as well as in the lower extremity. The incision in the lower extremity was utilized to obtain pieces of the greater saphenous vein using a combination of open and endoscopic techniques. The vein was harvested prepared for anastomosis and set aside. The lower extremity wounds were then closed using a layered absorbable suture closure. The wound in the midsternum was carried down through the sternum which was divided with a saw. The left hemisternum was then elevatedwith a mammary artery retractor and the mammary artery was dissected from the endothoracic fascia using Bovie electrocautery taking significant branches with hemoclips. The distal cut end of the LIMAhad excellent flow, it was wrapped in a verapamil soaked gauze and set aside. The mammary artery retractor was then replaced with a standard sternal retractor. The pericardium was opened. He was heparinized and cannulated for bypass. He was brought on bypass. The aorta was crossclamped. The heart was arrested with cold DelNido cardioplegia. Additional doses of cardioplegia were given throughout the cross-clamp interval as indicated by appropriate timing intervals or the return of any cardiac electrical activity. The vein graft to the PDA coronary was performed first using a 4 mm arteriotomy in a running 7-0 Prolene suture. The proximal anastomosis was then completed with a 4 mm aortic punchand running 6-0 Prolene suture. Using similar anastomotic techniques the obtuse marginal was grafted. While the patient was being rewarmed on bypass the end of the GREEN[place]OD was anastomosed to the side ofthe mid LAD using a running 8-0 Prolene suture and a 4 mm arteriotomy. The atraumatic clip on the [place] pedicle was removed at the completion of this anastomosis and the heart promptly resuscitated indicating good flow through the [place]. The cross-clamp was then removed. He was electrically defibrillated and fully rewarmed on bypass. Epicardial and right atrial pacing wires were positioned. Once rewarmed on bypass he was from bypass without significant difficulty. The above echo findings are noted.. Protamine sulfate was administered. He was decannulated. Mediastinal and pleural drainage catheters were positioned. Hemostasis was secured. The sternum was reapproximated with surgical wire. Soft tissues anterior to the sternum were reapproximated using a layered absorbable suture closure. Sterile dressings were applied. He was taken to the cardiothoracic intensive care unit in hemod ynamically stable condition. Attestation: Case Date: 10/30/2023 I was present and I participated during the entire procedure (does not need to include opening and closing). TIMI PERSON MD 11/04/2023 documented in this encounter Plan of Treatment Upcoming Encounters Date Type Department Care Team (Late st Contact Info) Description 01/31/2024 9:30 AM EST Office Visit [place] [address] Donavon Frey MD [facility] [place] [address] 02/06/2024 1:00 PM EST Office Visit Cardiology at [address] [phone] Adrian Tello MD [facility] [address] 04/25/2024 10:30 AM EST Office Visit Sleep Center at [facility] [address] [place] [address] Maria De Jesus Lange APRN [facility] [address] Pending Results Name Type Priority Associated Diagnoses Date /Time Transfuse RBC Nursing Transfusion Routine 1:15 AM EDT Scheduled Orders Name Type Priority Associated Diagnoses Orde r Schedule XR Chest PA & Lateral (Generic) Imaging Routine S/P CABG x 3 Expected: 12/18/2023 (Approximate), Expires: 06/18/2024 EKG 12 Lead ECG Routine S/P CABG x 3 Expected: 12/18/2023 (Approximate), Expires: 06/18/2024 Scheduled Referrals Name Type Priority Associated Diagnoses Orde r Schedule Referral to Home Health Outpatient Referral Routine S/P CABG x 3 Ordered: 11/18/2023 Referral to Cardiac Rehab Outpatient Referral Routine S/P CABG x 3 Ordered: 11/18/2023 documented as of this encounter Procedures Procedure Name Priority Date/Time Associated Diagnosis Comments POC, GLUCOSE Routine 11/18/2023 7:53 AM EDT POC, GLUCOSE Routine 11/18/2023 3:45 AM EDT PHOSPHORUS Routine 11/18/2023 2:14 AM EDT MAGNESIUM Routine 11/18/2023 2:14 AM EDT BASIC METABOLIC PANEL Routine 11/18/2023 2:14 AM EDT POC, GLUCOSE Routine 11/17/2023 11:32 PM EDT POC, GLUCOSE Routine 11/17/2023 7:13 PM EDT POC, GLUCOSE Routine 11/17/2023 4:33 PM EDT POC, GLUCOSE Routine 11/17/2023 12:16 PM EDT XR CHEST PA AND LATERAL Routine 11/17/2023 10:09 AM EDT POC, GLUCOSE Routine 11/17/2023 8:08 AM EDT PHOSPHORUS Routine 11/17/2023 5:10 AM EDT MAGNESIUM Routine 11/17/2023 5:10 AM EDT BASIC METABOLIC PANEL Routine 11/17/2023 5:10 AM EDT POC, GLUCOSE Routine 11/17/2023 4:05 AM EDT POC, GLUCOSE Routine 11/17/2023 12:04 AM EDT POC, GLUCOSE Routine 11/16/2023 8:03 PM EDT POC, GLUCOSE Routine 11/16/2023 7:39 PM EDT POC, GLUCOSE Routine 11/16/2023 5:02 PM EDT POC, GLUCOSE Routine 11/16/2023 11:17 AM EDT POC, GLUCOSE Routine 11/16/2023 8:16 AM EDT POC, GLUCOSE Routine 11/16/2023 6:22 AM EDT POC, GLUCOSE Routine 11/16/2023 3:07 AM EDT CBC (WITH DIFF) Routine 11/16/2023 1:29 AM EDT PHOSPHORUS Routine 11/16/2023 1:29 AM EDT MAGNESIUM Routine 11/16/2023 1:29 AM EDT BASIC METABOLIC PANEL Routine 11/16/2023 1:29 AM EDT POC, GLUCOSE Routine 11/16/2023 12:25 AM EDT POC, GLUCOSE Routine 11/15/2023 8:00 PM EDT POC, GLUCOSE Routine 11/15/2023 4:11 PM EDT IRON AND TIBC Routine 11/15/2023 4:09 PM EDT FERRITIN Routine 11/15/2023 4:09 PM EDT POC, GLUCOSE Routine 11/15/2023 12:05 PM EDT POC, GLUCOSE Routine 11/15/2023 8:22 AM EDT POC, GLUCOSE Routine 11/15/2023 3:52 AM EDT POC, GLUCOSE Routine 11/15/2023 12:01 AM EDT CBC (WITH DIFF) Routine 11/15/2023 12:01 AM EDT PHOSPHORUS Routine 11/15/2023 12:01 AM EDT MAGNESIUM Routine 11/15/2023 12:01 AM EDT BASIC METABOLIC PANEL Routine 11/15/2023 12:01 AM EDT POC, GLUCOSE Routine 11/14/2023 8:41 PM EDT POC, GLUCOSE Routine 11/14/2023 5:24 PM EDT POC, GLUCOSE Routine 11/14/2023 12:05 PM EDT POC, GLUCOSE Routine 11/14/2023 8:29 AM EDT POC, GLUCOSE Routine 11/14/2023 4:42 AM EDT CBC (WITH DIFF) Routine 11/14/2023 12:10 AM EDT PHOSPHORUS Routine 11/14/2023 12:10 AM EDT MAGNESIUM Routine 11/14/2023 12:10 AM EDT BASIC METABOLIC PANEL Routine 11/14/2023 12:10 AM EDT POC, GLUCOSE [...] (WITH DIFF) Routine 11/13/2023 12:09 AM EDT PHOSPHORUS Routine 11/13/2023 12:09 AM EDT MAGNESIUM Routine 11/13/2023 12:09 AM EDT BASIC METABOLIC PANEL Routine 11/13/2023 12:09 AM EDT POC, GLUCOSE [...] EDT BLOOD GAS ARTERIAL POC Routine 4 6:42 AM EDT POC, GLUCOSE Routine 11/12/2023 4:07 AM EDT POC, GLUCOSE Routine 11/12/2023 2:04 AM EDT BLOOD GAS ARTERIAL POC Routine 4 12:12 AM EDT HEPARIN (UNFRACTIONATED) LEVEL Timed 11/12/2023 12:09 AM EDT CBC (WITH DIFF) Routine 11/12/2023 12:09 AM EDT PHOSPHORUS Routine 11/12/2023 12:09 AM EDT MAGNESIUM Routine 11/12/2023 12:09 AM EDT BASIC METABOLIC PANEL Routine 11/12/2023 12:09 AM EDT POC, GLUCOSE Routine 11/12/2023 12:08 AM EDT POC, GLUCOSE Routine 11/11/2023 8:29 PM EDT BLOOD GAS ARTERIAL POC Routine 5:59 PM EDT HEPARIN (UNFRACTIONATED) LEVEL Timed 11/11/2023 5:57 PM EDT POC, GLUCOSE Routine 11/11/2023 4:34 PM EDT BLOOD GAS ARTERIAL POC Routine 11:58 AM EDT XR ABDOMEN 1 VIEW Routine [...] (WITH DIFF) Routine 11/11/2023 12:12 AM EDT PHOSPHORUS Routine 11/11/2023 12:12 AM EDT MAGNESIUM Routine 11/11/2023 12:12 AM EDT BASIC METABOLIC PANEL Routine 11/11/2023 12:12 AM EDT POC, GLUCOSE Routine 11/11/2023 12:11 AM EDT POC, GLUCOSE Routine 11/10/2023 8:10 PM EDT BLOOD GAS ARTERIAL POC Routine 6:15 PM EDT HEPARIN (UNFRACTIONATED) LEVEL Timed 11/10/2023 6:13 PM EDT POC, GLUCOSE Routine 11/10/2023 4:50 PM EDT C DIFF SCREEN PERFORMABLE Routine 11/10/2023 2:17 PM EDT C. DIFFICILE SCREEN Routine 11/10/2023 2 :17 PM EDT C DIFF PCR Routine 11/10/2023 2:17 PM EDT BLOOD GAS ARTERIAL POC Routine 12:43 PM EDT EKG 12-LEAD STAT 11/10/2023 12:25 PM EDT S/P CABG x 3 SCAN, PERIPHERAL BLOOD Routine 10:55 AM EDT CBC (WITH DIFF) Routine 11/10/2023 10:55 AM EDT BLOOD GAS ARTERIAL POC Routine 10:48 AM EDT EXTUBATE Routine 11/10/2023 8:36 AM EDT BLOOD GAS ARTERIAL POC Routine 8:14 AM EDT BLOOD GAS ARTERIAL POC Routine 5:53 AM EDT POC, GLUCOSE Routine 11/10/2023 4:11 AM EDT BLOOD GAS ARTERIAL POC Routine 12:45 AM EDT CBC (WITH DIFF) Routine 11/10/2023 12:43 AM EDT PHOSPHORUS Routine 11/10/2023 12:43 AM EDT MAGNESIUM Routine 11/10/2023 12:43 AM EDT BASIC METABOLIC PANEL Routine 11/10/2023 12:43 AM EDT POC, GLUCOSE Routine 11/09/2023 8:30 PM EDT PHOSPHORUS STAT 11/09/2023 3:59 PM EDT BLOOD GAS ARTERIAL POC Routine 3:57 PM EDT BLOOD GAS ARTERIAL POC Routine 1:59 PM EDT BLOOD GAS ARTERIAL POC Routine 11:34 AM EDT CREATININE STAT 11/09/2023 11:33 AM EDT BUN STAT 11/09/2023 11:33 AM EDT PHOSPHORUS STAT 11/09/2023 11:33 AM EDT MAGNESIUM STAT 11/09/2023 11:33 AM EDT ELECTROLYTES PANEL [...] (WITH DIFF) Routine 11/09/2023 12:16 AM EDT PHOSPHORUS Routine 11/09/2023 12:16 AM EDT MAGNESIUM Routine 11/09/2023 12:16 AM EDT BASIC METABOLIC PANEL Routine 11/09/2023 12:16 AM EDT BLOOD GAS ARTERIAL POC Routine 4 8:39 PM EDT BLOOD GAS ARTERIAL POC Routine 4 6:13 PM EDT POC, GLUCOSE Routine 11/08/2023 3:54 PM EDT BLOOD GAS ARTERIAL POC Routine 4 1:11 PM EDT CREATININE STAT 11/08/2023 11:53 AM EDT BUN STAT 11/08/2023 11:53 AM EDT PHOSPHORUS STAT 11/08/2023 11:53 AM EDT MAGNESIUM STAT 11/08/2023 11:53 AM EDT ELECTROLYTES PANEL STAT 11/08/2023 11 :53 AM EDT BLOOD GAS ARTERIAL POC Routine 4 11:52 AM EDT POC, GLUCOSE Routine 11/08/2023 11:07 AM EDT BLOOD GAS ARTERIAL POC Routine 4 9:10 AM EDT XR CHEST ONE VIEW Routine 11/08/2023 8:2 5 AM EDT POC, GLUCOSE Routine 11/08/2023 7:40 AM EDT BLOOD GAS ARTERIAL POC Routine 4 5:54 AM EDT ELECTROLYTES PANEL STAT 11/08/2023 5: 52 AM EDT POC, GLUCOSE Routine 11/08/2023 4:12 AM EDT POC, GLUCOSE Routine 11/08/2023 12:13 AM EDT BLOOD GAS ARTERIAL POC Routine 4 12:10 AM EDT CBC (WITH DIFF) Routine 11/08/2023 12:09 AM EDT PHOSPHORUS Routine 11/08/2023 12:09 AM EDT MAGNESIUM Routine 11/08/2023 12:09 AM EDT BASIC METABOLIC PANEL Routine 11/08/2023 12:09 AM EDT HC TR PSLD, RED BLOOD CELLS, IRRADIATED Routine 11/07/2023 10:03 PM EDT 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 BLOOD GAS ARTERIAL POC Routine 4 7:57 PM EDT BLOOD GAS ARTERIAL POC Routine 4 5:49 PM EDT BLOOD GAS ARTERIAL POC Routine 4 5:45 PM EDT CREATININE STAT 11/07/2023 5:43 PM EDT BUN STAT 11/07/2023 5:43 PM EDT PHOSPHORUS STAT 11/07/2023 5:43 PM EDT MAGNESIUM STAT 11/07/2023 5:43 PM EDT ELECTROLYTES PANEL STAT 11/07/2023 5: 43 PM EDT POC, GLUCOSE Routine 11/07/2023 5:13 PM EDT POC, GLUCOSE Routine 11/07/2023 3:24 PM EDT BLOOD GAS ARTERIAL POC Routine 4 1:32 PM EDT BLOOD GAS ARTERIAL POC Routine 11:49 AM EDT CREATININE STAT 11/07/2023 11:48 AM EDT BUN STAT 11/07/2023 11:48 AM EDT PHOSPHORUS STAT 11/07/2023 11:48 AM EDT MAGNESIUM STAT 11/07/2023 11:48 AM EDT ELECTROLYTES PANEL [...] (WITH DIFF) Routine 11/07/2023 12:16 AM EDT PHOSPHORUS Routine 11/07/2023 12:16 AM EDT MAGNESIUM Routine 11/07/2023 12:16 AM EDT BASIC METABOLIC PANEL Routine 11/07/2023 12:16 AM EDT BLOOD CULTURE STAT 11/06/2023 10:15 PM EDT URINALYSIS DIPSTICK Routine 11/06/2023 9 :50 PM EDT BLOOD GAS ARTERIAL POC Routine 4 7:59 PM EDT POC, GLUCOSE Routine 11/06/2023 7:18 PM EDT BLOOD GAS ARTERIAL POC Routine 4 4:00 PM EDT BLOOD GAS ARTERIAL POC Routine 4 1:50 PM EDT BLOOD GAS ARTERIAL POC Routine 4 11:46 AM EDT POTASSIUM Routine 11/06/2023 7:53 AM EDT BLOOD GAS ARTERIAL POC Routine 4 7:51 AM EDT BLOOD GAS ARTERIAL POC Routine 4 6:48 AM EDT BLOOD GAS ARTERIAL POC Routine 4 4:08 AM EDT POTASSIUM Routine 11/06/2023 4:06 AM EDT CBC (WITH DIFF) Routine 11/06/2023 12:01 AM EDT PHOSPHORUS Routine 11/06/2023 12:01 AM EDT MAGNESIUM Routine 11/06/2023 12:01 AM EDT BASIC METABOLIC PANEL Routine 11/06/2023 12:01 AM EDT BLOOD GAS ARTERIAL POC Routine 4 12:00 AM EDT HC TR PSLD, RED BLOOD CELLS, IRRADIATED Routine 11/05/2023 10:03 PM EDT 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 BLOOD GAS ARTERIAL POC Routine 4 8:06 PM EDT BLOOD GAS ARTERIAL POC Routine 4 5:52 PM EDT BLOOD GAS ARTERIAL POC Routine 4 4:03 PM EDT XR CHEST ONE VIEW STAT 11/05/2023 3:0 2 PM EDT BLOOD GAS ARTERIAL POC Routine 4 2:11 PM EDT BLOOD GAS ARTERIAL POC Routine 4 12:03 PM EDT CREATININE STAT 11/05/2023 12:01 PM EDT BUN STAT 11/05/2023 12:01 PM EDT PHOSPHORUS STAT 11/05/2023 12:01 PM EDT MAGNESIUM STAT 11/05/2023 12:01 PM EDT ELECTROLYTES PANEL [...] GAS ARTERIAL POC Routine 2:14 AM EDT VANCOMYCIN LEVEL, RANDOM Timed 11/05/2023 12:08 AM EDT CBC (WITH DIFF) Routine 11/05/2023 12:08 AM EDT PHOSPHORUS Routine 11/05/2023 12:08 AM EDT MAGNESIUM Routine 11/05/2023 12:08 AM EDT CK Routine 11/05/2023 12:08 AM EDT BASIC METABOLIC PANEL Routine 11/05/2023 12:08 AM EDT POC, GLUCOSE Routine 11/05/2023 12:07 AM EDT LAB SCAN 11/05/2023 12:00 AM EDT POC, GLUCOSE Routine 11/04/2023 10:13 PM EDT POC, GLUCOSE Routine 11/04/2023 8:19 PM EDT POTASSIUM Routine 11/04/2023 5:15 PM EDT CK Routine 11/04/2023 5:15 PM EDT BLOOD GAS ARTERIAL POC Routine 4:45 PM EDT HCV REFLEX HOLD Routine 11/04/2023 4:36 PM EDT HEPATITIS C ANTIBODY WITH REFLEX (PERFORMABLE) Routine 11/04/2023 4:36 PM EDT HEP C AB WITH REFLEX Routine 11/04/2023 4:36 PM EDT PTH Routine 11/04/2023 4:36 PM EDT HEPATITIS B CORE ANTIBODY, IGM Routine 11/04/2023 4:36 PM EDT VITAMIN D, 25-HYDROXY Routine 11/04/2023 4:36 PM EDT HEPATITIS B SURFACE ANTIGEN Routine 11/04/2023 4:36 PM EDT FERRITIN Routine 11/04/2023 4:36 PM EDT HC TR PSLD, RED BLOOD CELLS, IRRADIATED Routine 11/04/2023 2:03 PM EDT 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 URINALYSIS BEAKER MICROSCOPIC ([facility]) Routine 11/04/2023 11:54 AM EDT _URINALYSIS WITH MICRSOCOPIC Routine 11/04/2023 11:54 AM EDT URINALYSIS MICROSCOPIC EXAM Routine 11/04/2023 11:54 AM EDT UREA NITROGEN, URINE, RANDOM Routine 11/04/2023 11:54 AM EDT PROTEIN/CREATININE RATIO, URINE Add-On 11/04/2023 11:54 AM EDT U ALBUMIN/CRE RATIO Add-On 11/04/2023 1 1:54 AM EDT SODIUM, URINE, RANDOM Add-On 11/04/2023 11:54 AM EDT CREATININE, URINE, RANDOM Routine 11/04/2023 11:54 AM EDT URINALYSIS DIPSTICK Routine 11/04/2023 1 1:54 AM EDT BLOOD GAS ARTERIAL POC Routine 11:39 AM EDT IRON AND TIBC Add-On 11/04/2023 9:46 AM EDT URIC ACID Add-On 11/04/2023 9:46 AM EDT T3 TOTAL Add-On 11/04/2023 9:46 AM EDT TSH Add-On 11/04/2023 9:46 AM EDT T4 TOTAL Add-On 11/04/2023 9:46 AM EDT POTASSIUM Routine 11/04/2023 9:46 AM EDT CK Add-On 11/04/2023 9:46 AM EDT BLOOD GAS ARTERIAL POC Routine 8:23 AM EDT POC, GLUCOSE Routine 11/04/2023 6:00 AM EDT BLOOD GAS ARTERIAL POC Routine 3:32 AM EDT POC, GLUCOSE Routine 11/04/2023 3:31 AM EDT POTASSIUM Routine 11/04/2023 3:29 AM EDT POC, GLUCOSE Routine 11/04/2023 1:41 AM EDT POTASSIUM Routine 11/04/2023 1:38 AM EDT ABORH RECHECK (PATIENT HISTORY FOUND) Routine 11/03/2023 11:53 PM EDT VANCOMYCIN LEVEL, RANDOM Timed 11/03/2023 11:53 PM EDT PROTHROMBIN TIME Routine 11/03/2023 11:5 3 PM EDT TYPE AND SCREEN ([facility]) Routine 11/03/2023 11:53 PM EDT TRIGLYCERIDE Routine 11/03/2023 11:53 PM EDT PHOSPHORUS Routine 11/03/2023 11:53 PM EDT MAGNESIUM Routine 11/03/2023 11:53 PM EDT BASIC METABOLIC PANEL Routine 11/03/2023 11:53 PM EDT POC, GLUCOSE Routine 11/03/2023 11:52 PM EDT POC, GLUCOSE Routine 11/03/2023 11:10 PM EDT POC, GLUCOSE Routine 11/03/2023 10:33 PM EDT CBC (WITH DIFF) Routine 11/03/2023 10:28 PM EDT BLOOD GAS ARTERIAL POC Routine 8:31 PM EDT POTASSIUM Routine 11/03/2023 8:23 PM EDT POC, GLUCOSE Routine 11/03/2023 7:24 PM EDT POC, GLUCOSE Routine 11/03/2023 5:14 PM EDT POC, GLUCOSE Routine 11/03/2023 3:46 PM EDT BLOOD GAS ARTERIAL POC Routine 1:09 PM EDT PROTHROMBIN TIME Routine 11/03/2023 1:05 PM EDT BASIC METABOLIC PANEL Routine 11/03/2023 1:05 PM EDT XR ABDOMEN 1 VIEW STAT 11/03/2023 12: 27 PM EDT XR ABDOMEN 1 VIEW STAT 11/03/2023 12: 19 PM EDT POC, GLUCOSE Routine 11/03/2023 11:24 AM EDT POC, GLUCOSE Routine 11/03/2023 10:03 AM EDT POC, GLUCOSE Routine 11/03/2023 9:25 AM EDT DUPLEX FOR DVT BILAT LEGS Routine 11/03/2023 8:39 AM EDT S/P CABG x 3 VANCOMYCIN LEVEL, RANDOM Timed 11/03/2023 7:46 AM EDT POTASSIUM Routine 11/03/2023 7:46 AM EDT BLOOD GAS ARTERIAL POC Routine 7:07 AM EDT POC, GLUCOSE Routine 11/03/2023 6:22 AM EDT POC, GLUCOSE Routine 11/03/2023 5:09 AM EDT POC, GLUCOSE Routine 11/03/2023 2:20 AM EDT POC, GLUCOSE Routine 11/03/2023 12:22 AM EDT CBC (WITH DIFF) Routine 11/03/2023 12:21 AM EDT BASIC METABOLIC PANEL Routine 11/03/2023 12:21 AM EDT POC, GLUCOSE Routine 11/02/2023 10:08 PM EDT BLOOD GAS ARTERIAL POC Routine 9:20 PM EDT POTASSIUM Routine 11/02/2023 9:16 PM EDT POC, GLUCOSE Routine 11/02/2023 8:03 PM EDT LOWER RESPIRATORY CULTURE Routine 11/02/2023 6:38 PM EDT LOWER RESPIRATORY CULTURE Routine 11/02/2023 6:29 PM EDT BLOOD GAS ARTERIAL POC Routine 4 6:12 PM EDT BLOOD GAS ARTERIAL POC [...] POC, GLUCOSE Routine 11/02/2023 2:10 AM EDT CBC (WITH DIFF) Routine 11/02/2023 12:02 AM EDT BASIC METABOLIC PANEL Routine 11/02/2023 12:02 AM EDT POC, GLUCOSE [...] PM EDT BLOOD GAS ARTERIAL POC Routine 1:58 PM EDT POC, GLUCOSE Routine 11/01/2023 1:02 PM EDT BLOOD GAS ARTERIAL POC Routine 11:36 AM EDT BASIC METABOLIC PANEL STAT 11/01/2023 11:34 AM EDT POC, GLUCOSE Routine 11/01/2023 10:12 AM EDT POC, GLUCOSE Routine 11/01/2023 9:19 AM EDT BLOOD GAS ARTERIAL POC Routine 4 8:06 AM EDT BETA HYDROXYBUTYRATE Add-On 11/01/2023 [...] POC, GLUCOSE Routine 10/31/2023 9:11 PM EDT BLOOD GAS ARTERIAL POC Routine [...] EDT BLOOD GAS ARTERIAL POC Routine 4 1:38 AM EDT TROPONIN - SINGLE Timed 10/31/2023 1:3 7 AM EDT SCAN, PERIPHERAL BLOOD Routine 1:37 AM EDT LIPOPROTEIN A Routine 10/31/2023 1:37 AM EDT CBC (WITH DIFF) Routine 10/31/2023 1:37 AM EDT HEMOGLOBIN A1C Add-On 10/31/2023 1:37 AM EDT BASIC METABOLIC PANEL Routine 10/31/2023 1:37 AM EDT POC, GLUCOSE Routine 10/31/2023 1:00 [...] PM EDT BLOOD GAS ARTERIAL POC Routine 2:27 PM EDT BLOOD GAS ARTERIAL POC Routine 1:19 PM EDT XR CHEST ONE VIEW STAT 10/30/2023 1:1 8 PM EDT EKG 12-LEAD STAT 10/30/2023 1:07 PM EDT S/P CABG x 3 PREPARE RBC STAT 10/30/2023 12:48 PM EDT 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 BLOOD GAS ARTERIAL POC Routine 4 11:55 AM EDT BLOOD GAS ARTERIAL POC Routine 4 11:03 AM EDT BLOOD GAS ARTERIAL POC [...] 10/30/2023 8:24 AM EDT Cabg, Artery-Vein, Two ([id number]) 10/30/2023 7:36 AM EDT [facility] Cabg, Arterial, Single ([id number]) 10/30/2023 7:36 AM EDT [facility] Endoscopy W/Video-Asst Vein [place], Cabg ([id number]) 10/30/2023 7:36 AM EDT [facility] COMPREHENSIVE METABOLIC PANEL Routine 10/30/2023 6:57 AM EDT 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 Blood CAPILLARY BLOOD / Unknown 11/18/2023 7:53 AM EDT 11/18/2023 7:53 AM EDT Timi Person MD POINT OF CARE TEST ORDERABLES Performing Organization Address City/[facility]/ZIP Co de Phone Number [facility] [place] [address] * POC, GLUCOSE (11/18/2023 3:45 AM EDT) Glucometer, POC 98 65 - 199 mg/dL 11/18/2023 3:45 AM EDT [facility] Comment:Supplemental ranges: <140 mg/dL before meals <180 mg/dL all other times of the day. Blood CAPILLARY BLOOD / Unknown 11/18/2023 3:45 AM EDT 11/18/2023 3:45 AM EDT Timi Person MD POINT OF CARE TEST ORDERABLES [facility] [place] [address] * (ABNORMAL) Basic Metabolic Panel (11/18/2023 2:14 AM EDT) Glucose 110 65 - 199 mg/dL 11/18/2023 2:56 AM EDT [facility] Comment:Glucose Concentratio n >=200 mg/dL plus symptoms is consistent with Diabetes Mellitus. Blood Urea Nitrogen 48(H) 10 - 20 mg/dL 11/18/2023 2:56 AM [facility] Creatinine 3.24(H) 0.80 - 1.50 mg/dL 11/18/2023 2:56 AM [facility] Sodium 139 135 - 145 mMol/L 11/18/2023 2:56 AM [facility] Potassium 4.2 3.5 - 5.0 mMol/L 11/18/2023 2:56 AM [facility] Chloride 106 98 - 107 mMol/L 11/18/2023 2:56 AM [facility] Carbon Dioxide 21(L) 22 - 31 mMol/L 11/18/2023 2:56 AM [facility] Anion Gap 12 5 - 15 mMol/L 11/18/2023 2:56 AM [facility] Calcium 8.7 8.5 - 10.5 mg/dL 11/18/2023 2:56 AM [facility] Est Glomerular Filtration Rate - Male 23 mL/min/1. 73 m?? 11/18/2023 2:56 AM [facility] Comment: This patient's estimated GFR [...] Unknown IP Care Team Draw / Unknown 11/18/2023 2:14 AM EDT 11/18/2023 2:25 AM EDT Timi Person MD CHEMISTRY ORDERABLE S [facility] [place] [address] * (ABNORMAL) Phosphorus (11/18/2023 2:14 AM EDT) Phosphorus 4.8(H) 2.5 - 4.5 mg/dL 11/18/2023 2:56 AM EDT [facility] Blood VENOUS BLOOD SPECIMEN / Unknown IP Care Team Draw / Unknown 11/18/2023 2:14 AM EDT 11/18/2023 2:25 AM EDT Timi Person MD CHEMISTRY ORDERABLE S [facility] [place] [address] * Magnesium (11/18/2023 2:14 AM EDT) [facility] Magnesium 0.90 0.69 - 1.07 mMol/L 11/18/2023 2:56 AM EDT [facility] Blood VENOUS BLOOD SPECIMEN / Unknown IP Care Team Draw / Unknown 11/18/2023 2:14 AM EDT 11/18/2023 2:25 AM EDT Timi Person MD CHEMISTRY ORDERABLE S [facility] [place] [address] * POC, GLUCOSE (11/17/2023 11:32 PM EDT) [facility] Glucometer, POC 117 65 - 199 mg/dL 11/17/2023 11:32 PM EDT [facility] Comment:Supplemental ranges: <140 mg/dL before meals <180 mg/dL all other times of the day. Blood CAPILLARY BLOOD / Unknown 11/17/2023 11:32 PM EDT 11/17/2023 11:33 PM EDT Timi Person MD POINT OF CARE TEST ORDERABLES [facility] [place] [address] * POC, GLUCOSE (11/17/2023 7:13 PM EDT) Glucometer, POC 135 65 - 199 mg/dL 11/17/2023 7:13 PM EDT [facility] Comment:Supplemental ranges: <140 mg/dL before meals <180 mg/dL all other times of the day. Blood CAPILLARY BLOOD / Unknown 11/17/2023 7:13 PM EDT 11/17/2023 7:13 PM EDT Timi Person MD POINT OF CARE TEST ORDERABLES Performing Organization Address [facility] Co de Phone Number [facility] [place] [address] * POC, GLUCOSE (11/17/2023 4:33 PM EDT) Glucometer, POC 124 65 - 199 mg/dL 11/17/2023 4:33 PM EDT [facility] Comment:Supplemental ranges: <140 mg/dL before meals <180 mg/dL all other times of the day. Blood CAPILLARY BLOOD / Unknown 11/17/2023 4:33 PM EDT 11/17/2023 4:33 PM EDT Timi Person MD POINT OF CARE TEST ORDERABLES Performing Organization Address City/[facility]/ZIP Co de Phone Number [facility] [place] [address] * (ABNORMAL) POC, GLUCOSE (11/17/2023 12:16 PM EDT) Glucometer, POC 208(H) 65 - 199 mg/dL 11/17/2023 12:16 PM EDT [facility] Comment:Supplemental ranges: <140 mg/dL before meals <180 mg/dL all other times of the day. Blood CAPILLARY BLOOD / Unknown 11/17/2023 12:16 PM EDT 11/17/2023 12:16 PM EDT Timi Person MD POINT OF CARE TEST ORDERABLES [facility] [place] [address] * XR Chest PA & Lateral (Generic) (11/17/2023 10:09 AM EDT) WORKSTATION ID [id number] RAD Anatomical Region Laterality Modality Chest N/A [...] who have questions please contact the health personal care assistant that requested your imaging first. ? Narrative [...] patients who have questions please contactthe health personal care assistant that requested your imaging first. Timi Person MD IMG DX ORDERABLES * POC, GLUCOSE (11/17/2023 8:08 AM EDT) [facility] Glucometer, POC 160 65 - 199 mg/dL 11/17/2023 8:09 AM EDT [facility] Comment:Supplemental ranges: <140 mg/dL before meals <180 mg/dL all other times of the day. Blood CAPILLARY BLOOD / Unknown 11/17/2023 8:08 AM EDT 11/17/2023 8:09 AM EDT Timi Person MD POINT OF CARE TEST ORDERABLES [facility] [place] [address] * (ABNORMAL) Basic Metabolic Panel (11/17/2023 5:10 AM EDT) Glucose 156 65 - 199 mg/dL 11/17/2023 7:30 AM EDT [facility] Comment:Glucose Concentratio n >=200 mg/dL plus symptoms is consistent with Diabetes Mellitus. Blood Urea Nitrogen 45(H) 10 - 20 mg/dL 11/17/2023 7:30 AM [facility] Creatinine 3.10(H) 0.80 - 1.50 mg/dL 11/17/2023 7:30 AM [facility] Sodium 139 135 - 145 mMol/L 11/17/2023 7:30 AM [facility] Potassium 4.2 3.5 - 5.0 mMol/L 11/17/2023 7:30 AM [facility] Chloride 102 98 - 107 mMol/L 11/17/2023 7:30 AM [facility] Carbon Dioxide 23 22 - 31 mMol/L 11/17/2023 7:30 AM [facility] Anion Gap 14 5 - 15 mMol/L 11/17/2023 7:30 AM [facility] Calcium 8.8 8.5 - 10.5 mg/dL 11/17/2023 7:30 AM [facility] Est Glomerular Filtration Rate - Male 24 mL/min/1. 73 m?? 11/17/2023 7:30 AM [facility] Comment: This patient's estimated GFR [...] Unknown IP Care Team Draw / Unknown 11/17/2023 5:10 AM EDT 11/17/2023 5:23 AM EDT Timi Person MD CHEMISTRY ORDERABLE S [facility] [place] [address] * Phosphorus (11/17/2023 5:10 AM EDT) Phosphorus 4.2 2.5 - 4.5 mg/dL 11/17/2023 5:52 AM EDT [facility] Blood VENOUS BLOOD SPECIMEN / Unknown IP Care Team Draw / Unknown 11/17/2023 5:10 AM EDT 11/17/2023 5:23 AM EDT Timi Person MD CHEMISTRY ORDERABLE S [facility] [place] [address] * Magnesium (11/17/2023 5:10 AM EDT) Magnesium 0.86 0.69 - 1.07 mMol/L 11/17/2023 5:52 AM EDT [facility] Blood VENOUS BLOOD SPECIMEN / Unknown IP Care Team Draw / Unknown 11/17/2023 5:10 AM EDT 11/17/2023 5:23 AM EDT Timi Person MD CHEMISTRY ORDERABLE S [facility] [place] [address] * POC, GLUCOSE (11/17/2023 4:05 AM EDT) Glucometer, POC 155 65 - 199 mg/dL 11/17/2023 4:06 AM EDT [facility] Comment:Supplemental ranges: <140 mg/dL before meals <180 mg/dL all other times of the day. Blood CAPILLARY BLOOD / Unknown 11/17/2023 4:05 AM EDT 11/17/2023 4:06 AM EDT Timi Person MD POINT OF CARE TEST ORDERABLES [facility] [place] [address] * POC, GLUCOSE (11/17/2023 12:04 AM EDT) Glucometer, POC 152 65 - 199 mg/dL 11/17/2023 12:05 AM EDT [facility] Comment:Supplemental ranges: <140 mg/dL before meals <180 mg/dL all other times of the day. Blood CAPILLARY BLOOD / Unknown 11/17/2023 12:04 AM EDT 11/17/2023 12:05 AM EDT Timi Person MD POINT OF CARE TEST ORDERABLES [facility] [place] [address] * (ABNORMAL) POC, GLUCOSE (11/16/2023 8:03 PM EDT) Glucometer, POC 262(H) 65 - 199 mg/dL 11/16/2023 8:04 PM EDT [facility] Comment:Supplemental ranges: <140 mg/dL before meals <180 mg/dL all other times of the day. Blood CAPILLARY BLOOD / Unknown 11/16/2023 8:03 PM EDT 11/16/2023 8:04 PM EDT Timi Person MD POINT OF CARE TEST ORDERABLES [facility] [place] [address] * (ABNORMAL) POC, GLUCOSE (11/16/2023 7:39 PM EDT) Glucometer, POC 274(H) 65 - 199 mg/dL 11/16/2023 7:39 PM EDT [facility] Comment:Supplemental ranges: <140 mg/dL before meals <180 mg/dL all other times of the day. Blood CAPILLARY BLOOD / Unknown 11/16/2023 7:39 PM EDT 11/16/2023 7:39 PM EDT Timi Person MD POINT OF CARE TEST ORDERABLES Performing Organization Address City/[facility]/ZIP Co de Phone Number [facility] [place] [address] * POC, GLUCOSE (11/16/2023 5:02 PM EDT) Glucometer, POC 156 65 - 199 mg/dL 11/16/2023 5:02 PM EDT [facility] Comment:Supplemental ranges: <140 mg/dL before meals <180 mg/dL all other times of the day. Blood CAPILLARY BLOOD / Unknown 11/16/2023 5:02 PM EDT 11/16/2023 5:03 PM EDT Timi Person MD POINT OF CARE TEST ORDERABLES [facility] [place] [address] * (ABNORMAL) POC, GLUCOSE (11/16/2023 11:17 AM EDT) Glucometer, POC 214(H) 65 - 199 mg/dL 11/16/2023 11:18 AM EDT [facility] Comment:Supplemental ranges: <140 mg/dL before meals <180 mg/dL all other times of the day. Blood CAPILLARY BLOOD / Unknown 11/16/2023 11:17 AM EDT 11/16/2023 11:18 AM EDT Timi Person MD POINT OF CARE TEST ORDERABLES [facility] [place] [address] * POC, GLUCOSE (11/16/2023 8:16 AM EDT) Glucometer, POC 178 65 - 199 mg/dL 11/16/2023 8:17 AM EDT [facility] Comment:Supplemental ranges: <140 mg/dL before meals <180 mg/dL all other times of the day. Blood CAPILLARY BLOOD / Unknown 11/16/2023 8:16 AM EDT 11/16/2023 8:17 AM EDT Timi Person MD POINT OF CARE TEST ORDERABLES Performing Organization Address City/[facility]/ZIP Co de Phone Number [facility] [place] [address] * POC, GLUCOSE (11/16/2023 6:22 AM EDT) Glucometer, POC 141 65 - 199 mg/dL 11/16/2023 6:22 AM EDT [facility] Comment:Supplemental ranges: <140 mg/dL before meals <180 mg/dL all other times of the day. Blood CAPILLARY BLOOD / Unknown 11/16/2023 6:22 AM EDT 11/16/2023 6:22 AM EDT Timi Person MD POINT OF CARE TEST ORDERABLES [facility] [place] [address] * POC, GLUCOSE (11/16/2023 3:07 AM EDT) Glucometer, POC 147 65 - 199 mg/dL 11/16/2023 3:08 AM EDT [facility] Comment:Supplemental ranges: <140 mg/dL before meals <180 mg/dL all other times of the day. Blood CAPILLARY BLOOD / Unknown 11/16/2023 3:07 AM EDT 11/16/2023 3:08 AM EDT Timi Person MD POINT OF CARE TEST ORDERABLES Performing Organization Address City/State/[facility] Co de Phone Number [facility] [place] [address] * (ABNORMAL) CBC (with Diff) (11/16/2023 1:29 AM EDT) White Blood Cell 10.34(H) 4.00 - 9.50 x10(3)/mc L 11/16/2023 2:16 AM EDT [facility] Red Blood Cell 4.27(L) 4.58 - 5.54 x10(6)/mc L 11/16/2023 2:16 AM EDT [facility] Hemoglobin 9.3(L) 13.7 - 16.5 g/dL 11/16/2023 2:16 AM EDT [facility] Hematocrit 30.2(L) 40.5 - 48.5 % 11/16/2023 2:16 AM EDT [facility] Mean Cell Volume 70.7(L) 82.9 - 93.1 fL 11/16/2023 2:16 AM EDT [facility] Mean Cell Hemoglobin 21.8(L) 27.5 - 32.1 pg 11/16/2023 2:16 AM EDT [facility] Mean Cell Hemoglobin Concentration 30.8(L) 32.0 - 35.7 g/dL 11/16/2023 2:16 AM EDT [facility] Platelet 498(H) 145 - 357 x10(3)/mc L 11/16/2023 2:16 AM EDT [facility] Mean Platelet Volume 10.3 7.6 - 12.9 fL 11/16/2023 2:16 AM [facility] RDW Standard Deviation 54.0(H) 36.0 - 45.0 fL 11/16/2023 2:16 AM [facility] RDW coefficient of variation 22.0(H) 11.4 - 13.8 % 11/16/2023 2:16 AM [facility] NRBC% auto 0.0 % 11/16/2023 2:16 AM [facility] NRBC Absolute <0.01 <0.01 x10(3)/mc L 11/16/2023 2:16 AM [facility] Neutrophil % 71.5 % 11/16/2023 2:16 AM [facility] Neutrophil Absolute (ANC) - Automated 7.39(H) 1.70 - 6.10 x10(3)/mc L 11/16/2023 2:16 AM [facility] Lymph % 16.5 % 11/16/2023 2:16 AM [facility] Lymph Absolute 1.71 0.90 - 3.20 x10(3)/mc L 11/16/2023 2:16 AM [facility] Monocyte % 8.0 % 11/16/2023 2:16 AM [facility] Monocyte Absolute 0.83 0.30 - 0.90 x10(3)/mc L 11/16/2023 2:16 AM [facility] Eos % 2.6 % 11/16/2023 2:16 AM [facility] Eos Absolute 0.27 0.00 - 0.40 x10(3)/mc L 11/16/2023 2:16 AM [facility] Basophil % 0.9 % 11/16/2023 2:16 AM [facility] Baso Absolute 0.09 0.00 - 0.10 x10(3)/mc L 11/16/2023 2:16 AM [facility] Immature Gran % 0.5 % 2:16 AM EDT [facility] Immature Gran Absolute 0.05(H) 0.00 - 0.04 x10(3)/mc L 11/16/2023 2:16 AM EDT [facility] Blood VENOUS BLOOD SPECIMEN / Unknown IP Care Team Draw / Unknown 11/16/2023 1:29 AM EDT 11/16/2023 1:39 AM EDT Timi Person MD HEMATOLOGY ORDERABL ES [facility] [place] [address] * (ABNORMAL) Basic Metabolic Panel (11/16/2023 1:29 AM EDT) Glucose 152 65 - 199 mg/dL 11/16/2023 2:13 AM EDT [facility] Comment:Glucose Concentratio n >=200 mg/dL plus symptoms is consistent with Diabetes Mellitus. Blood Urea Nitrogen 44(H) 10 - 20 mg/dL 11/16/2023 2:13 AM EDT [facility] Creatinine 3.52(H) 0.80 - 1.50 mg/dL 11/16[facility]23 [facility] Sodium 140 135 - 145 mMol/L 11/16/2023 2:13 AM EDT [facility] Potassium 4.0 3.5 - 5.0 mMol/L 11/16/2023 2:13 AM EDT [facility] Chloride 102 98 - 107 mMol/L 11/16/2023 2:13 AM [facility] Carbon Dioxide 23 22 - 31 mMol/L 11/16/2023 2:[facility] Anion Gap 15 5 - 15 mMol/L 11/16/2023 2:13 AM [facility] Calcium 8.6 8.5 - 10.5 mg/dL 11/16/2023 2:13 AM EDT [facility] Est Glomerular Filtration Rate - Male 21 mL/min/1. 73 m?? 11/16/2023 2:13 AM EDT [facility] Comment: This patient's estimated GFR [...] Unknown IP Care Team Draw / Unknown 11/16/2023 1:29 AM EDT 11/16/2023 1:39 AM EDT Timi Person MD CHEMISTRY ORDERABLE S Performing Organization Address City/[facility]/ZIP Co de Phone Number [facility] [place] [address] * (ABNORMAL) Phosphorus (11/16/2023 1:29 AM EDT) Phosphorus 4.6(H) 2.5 - 4.5 mg/dL 11/16/2023 2:13 AM EDT [facility] Blood VENOUS BLOOD SPECIMEN / Unknown IP Care Team Draw / Unknown 11/16/2023 1:29 AM EDT 11/16/2023 1:39 AM EDT Timi Person MD CHEMISTRY ORDERABLE S [facility] [place] [address] * Magnesium (11/16/2023 1:29 AM EDT) Magnesium 0.80 0.69 - 1.07 mMol/L 11/16/2023 2:13 AM EDT [facility] Blood VENOUS BLOOD SPECIMEN / Unknown IP Care Team Draw / Unknown 11/16/2023 1:29 AM EDT 11/16/2023 1:39 AM EDT Timi Person MD CHEMISTRY ORDERABLE S Performing Organization Address City/[facility]/ZIP Co de Phone Number [facility] [place] [address] * POC, GLUCOSE (11/16/2023 12:25 AM EDT) Glucometer, POC 102 65 - 199 mg/dL 11/16/2023 12:25 AM EDT [facility] Comment:Supplemental ranges: <140 mg/dL before meals <180 mg/dL all other times of the day. Blood CAPILLARY BLOOD / Unknown 11/16/2023 12:25 AM EDT 11/16/2023 12:25 AM EDT Timi Person MD POINT OF CARE TEST ORDERABLES Performing Organization Address City/[facility]/ZIP Co de Phone Number [facility] [place] [address] * (ABNORMAL) POC, GLUCOSE (11/15/2023 8:00 PM EDT) Glucometer, POC 233(H) 65 - 199 mg/dL 11/15/2023 8:00 PM EDT [facility] Comment:Supplemental ranges: <140 mg/dL before meals <180 mg/dL all other times of the day. Blood CAPILLARY BLOOD / Unknown 11/15/2023 8:00 PM EDT 11/15/2023 8:00 PM EDT Timi Person MD POINT OF CARE TEST ORDERABLES [facility] [place] [address] * (ABNORMAL) POC, GLUCOSE (11/15/2023 4:11 PM EDT) Glucometer, POC 208(H) 65 - 199 mg/dL 11/15/2023 4:11 PM EDT [facility] Comment:Supplemental ranges: <140 mg/dL before meals <180 mg/dL all other times of the day. Blood CAPILLARY BLOOD / Unknown 11/15/2023 4:11 PM EDT 11/15/2023 4:11 PM EDT Timi Person MD POINT OF CARE TEST ORDERABLES [facility] [place] [address] * (ABNORMAL) Ferritin (11/15/2023 4:09 PM EDT) Ferritin 555(H) 31 - 409 ng/ml 11/15/2023 5:33 PM EDT [facility] Blood VENOUS BLOOD SPECIMEN / Unknown IP Care Team Draw / Unknown 11/15/2023 4:09 PM EDT 11/15/2023 4:46 PM EDT Donavon Frey MD CHEMISTRY ORDERABLES [facility] [place] [address] * (ABNORMAL) Iron and TIBC (11/15/2023 4:09 PM EDT) Iron 27(L) 45 - 160 mcg/dL 11/15/2023 5:32 PM EDT [facility] TIBC 237(L) 250 - 450 mcg/dL 11/15/2023 5:32 PM EDT [facility] Iron Saturation 11(L) 20 - 50 % 5:32 PM EDT [facility] Blood VENOUS BLOOD SPECIMEN / Unknown IP Care Team Draw / Unknown 11/15/2023 4:09 PM EDT 11/15/2023 4:46 PM EDT Donavon Frey MD CHEMISTRY ORDERABLES Performing Organization Address City/[facility]/ZIP Co de Phone Number [facility] [place] [address] * (ABNORMAL) POC, GLUCOSE (11/15/2023 12:05 PM EDT) Glucometer, POC 210(H) 65 - 199 mg/dL 11/15/2023 12:05 PM EDT [facility] Comment:Supplemental ranges: <140 mg/dL before meals <180 mg/dL all other times of the day. Blood CAPILLARY BLOOD / Unknown 11/15/2023 12:05 PM EDT 11/15/2023 12:05 PM EDT Timi Person MD POINT OF CARE TEST ORDERABLES Performing Organization Address [facility] Co de Phone Number [facility] [place] [address] * POC, GLUCOSE (11/15/2023 8:22 AM EDT) Glucometer, POC 154 65 - 199 mg/dL 11/15/2023 8:22 AM EDT [facility] Comment:Supplemental ranges: <140 mg/dL before meals <180 mg/dL all other times of the day. Blood CAPILLARY BLOOD / Unknown 11/15/2023 8:22 AM EDT 11/15/2023 8:23 AM EDT Timi Person MD POINT OF CARE TEST ORDERABLES [facility] [place] [address] * (ABNORMAL) POC, GLUCOSE (11/15/2023 3:52 AM EDT) Glucometer, POC 238(H) 65 - 199 mg/dL 11/15/2023 3:53 AM EDT [facility] Comment:Supplemental ranges: <140 mg/dL before meals <180 mg/dL all other times of the day. Blood CAPILLARY BLOOD / Unknown 11/15/2023 3:52 AM EDT 11/15/2023 3:53 AM EDT Timi Person MD POINT OF CARE TEST ORDERABLES [facility] [place] [address] * POC, GLUCOSE (11/15/2023 12:01 AM EDT) Glucometer, POC 153 65 - 199 mg/dL 11/15/2023 12:01 AM EDT [facility] Comment:Supplemental ranges: <140 mg/dL before meals <180 mg/dL all other times of the day. Blood CAPILLARY BLOOD / Unknown 11/15/2023 12:01 AM EDT 11/15/2023 12:01 AM EDT Timi Person MD POINT OF CARE TEST ORDERABLES [facility] [place] [address] * (ABNORMAL) CBC (with Diff) (11/15/2023 12:01 AM EDT) [facility] White Blood Cell 11.56(H) 4.00 - 9.50 x10(3)/mc L 11/15/2023 12:14 AM EDT [facility] Red Blood Cell 4.13(L) 4.58 - 5.54 x10(6)/mc L 11/15/2023 12:14 AM EDT [facility] Hemoglobin 9.0(L) 13.7 - 16.5 g/dL 11/15/2023 12:14 AM EDT [facility] Hematocrit 28.8(L) 40.5 - 48.5 % 11/15/2023 12:14 AM EDT [facility] Mean Cell Volume 69.7(L) 82.9 - 93.1 fL 11/15/2023 12:14 AM EDT [facility] Mean Cell Hemoglobin 21.8(L) 27.5 - 32.1 pg 11/15/2023 12:14 AM [facility] Mean Cell Hemoglobin Concentration 31.3(L) 32.0 - 35.7 g/dL 11/15/2023 12:14 AM [facility] Platelet 401(H) 145 - 357 x10(3)/mc L 11/15/2023 12:14 AM [facility] Mean Platelet Volume 10.0 7.6 - 12.9 fL 11/15/2023 12:14 AM [facility] RDW Standard Deviation 52.7(H) 36.0 - 45.0 fL 11/15/2023 12:14 AM [facility] RDW coefficient of variation 22.1(H) 11.4 - 13.8 % 11/15/2023 12:14 AM [facility] NRBC% auto 0.0 % 11/15/2023 12:14 AM [facility] NRBC Absolute <0.01 <0.01 x10(3)/mc L 11/15/2023 12:14 AM [facility] Neutrophil % 72.9 % 11/15/2023 12:14 AM [facility] Neutrophil Absolute (ANC) - Automated 8.44(H) 1.70 - 6.10 x10(3)/mc L 11/15/2023 12:14 AM [facility] Lymph % 14.4 % 11/15/2023 12:14 AM [facility] Lymph Absolute 1.66 0.90 - 3.20 x10(3)/mc L 11/15/2023 12:14 AM [facility] Monocyte % 9.1 % 11/15/2023 12:14 AM [facility] Monocyte Absolute 1.05(H) 0.30 - 0.90 x10(3)/mc L 11/15/2023 12:14 AM [facility] Eos % 2.1 % 11/15/2023 12:14 AM EDT [facility] Eos Absolute 0.24 0.00 - 0.40 x10(3)/mc L 11/15/2023 12:14 AM EDT [facility] Basophil % 0.8 % 11/15/2023 12:14 AM EDT [facility] Baso Absolute 0.09 0.00 - 0.10 x10(3)/mc L 11/15/2023 12:14 AM EDT [facility] Immature Gran % 0.7 % 12:14 AM EDT [facility] Immature Gran Absolute 0.08(H) 0.00 - 0.04 x10(3)/mc L 11/15/2023 12:14 AM EDT [facility] Blood VENOUS BLOOD SPECIMEN / Unknown IP Care Team Draw / Unknown 11/15/2023 12:01 AM EDT 11/15/2023 12:07 AM EDT Timi Person MD HEMATOLOGY ORDERABL ES [facility] [place] [address] * (ABNORMAL) Basic Metabolic Panel (11/15/2023 12:01 AM EDT) Glucose 158 65 - 199 mg/dL 11/15/2023 12:56 AM EDT [facility] Comment:Glucose Concentratio n >=200 mg/dL plus symptoms is consistent with Diabetes Mellitus. Blood Urea Nitrogen 41(H) 10 - 20 mg/dL 11/15/2023 12:56 AM EDT [facility] Creatinine 3.10(H) 0.80 - 1.50 mg/dL 11/15/2023 12:56 AM EDT [facility] Sodium 139 135 - 145 mMol/L 11/15/2023 12:56 AM EDT [facility] Potassium 4.1 3.5 - 5.0 mMol/L 11/15/2023 12:56 AM EDT [facility] Chloride 103 98 - 107 mMol/L 11/15/2023 12:56 AM EDT [facility] Carbon Dioxide 24 22 - 31 mMol/L 11/15/2023 12:56 AM EDT [facility] Anion Gap 12 5 - 15 mMol/L 11/15/2023 12:56 AM EDT [facility] Calcium 8.5 8.5 - 10.5 mg/dL 11/15/2023 12:56 AM EDT [facility] Est Glomerular Filtration Rate - Male 24 mL/min/1. 73 m?? 11/15/2023 12:56 AM EDT [facility] Comment: This patient's estimated GFR [...] Unknown IP Care Team Draw / Unknown 11/15/2023 12:01 AM EDT 11/15/2023 12:07 AM EDT Timi Person MD CHEMISTRY ORDERABLE S [facility] [place] [address] * (ABNORMAL) Phosphorus (11/15/2023 12:01 AM EDT) Phosphorus 4.7(H) 2.5 - 4.5 mg/dL 11/15/2023 12:41 AM EDT [facility] Blood VENOUS BLOOD SPECIMEN / Unknown IP Care Team Draw / Unknown 11/15/2023 12:01 AM EDT 11/15/2023 12:07 AM EDT Timi Person MD CHEMISTRY ORDERABLE S [facility] [place] [address] * Magnesium (11/15/2023 12:01 AM EDT) Magnesium 0.79 0.69 - 1.07 mMol/L 11/15/2023 12:41 AM EDT [facility] Blood VENOUS BLOOD SPECIMEN / Unknown IP Care Team Draw / Unknown 11/15/2023 12:01 AM EDT 11/15/2023 12:07 AM EDT Timi Person MD CHEMISTRY ORDERABLE S [facility] [place] [address] * (ABNORMAL) POC, GLUCOSE (11/14/2023 8:41 PM EDT) Glucometer, POC 221(H) 65 - 199 mg/dL 11/14/2023 8:41 PM EDT [facility] Comment:Supplemental ranges: <140 mg/dL before meals <180 mg/dL all other times of the day. Blood CAPILLARY BLOOD / Unknown 11/14/2023 8:41 PM EDT 11/14/2023 8:41 PM EDT Timi Person MD POINT OF CARE TEST ORDERABLES [facility] [place] [address] * (ABNORMAL) POC, GLUCOSE (11/14/2023 5:24 PM EDT) Glucometer, POC 217(H) 65 - 199 mg/dL 11/14/2023 5:24 PM EDT [facility] Comment:Supplemental ranges: <140 mg/dL before meals <180 mg/dL all other times of the day. Blood CAPILLARY BLOOD / Unknown 11/14/2023 5:24 PM EDT 11/14/2023 5:24 PM EDT Timi Person MD POINT OF CARE TEST ORDERABLES Performing Organization Address City/[facility] Co de Phone Number [facility] [place] [address] * (ABNORMAL) POC, GLUCOSE (11/14/2023 12:05 PM EDT) Glucometer, POC 208(H) 65 - 199 mg/dL 11/14/2023 12:05 PM EDT [facility] Comment:Supplemental ranges: <140 mg/dL before meals <180 mg/dL all other times of the day. Blood CAPILLARY BLOOD / Unknown 11/14/2023 12:05 PM EDT 11/14/2023 12:05 PM EDT Timi Person MD POINT OF CARE TEST ORDERABLES Performing Organization Address [facility] Co de Phone Number [facility] [place] [address] * (ABNORMAL) POC, GLUCOSE (11/14/2023 8:29 AM EDT) Glucometer, POC 260(H) 65 - 199 mg/dL 11/14/2023 8:29 AM EDT [facility] Comment:Supplemental ranges: <140 mg/dL before meals <180 mg/dL all other times of the day. Blood CAPILLARY BLOOD / Unknown 11/14/2023 8:29 AM EDT 11/14/2023 8:29 AM EDT Timi Person MD POINT OF CARE TEST ORDERABLES Performing Organization Address City/[facility]/ZIP Co de Phone Number [facility] [place] [address] * POC, GLUCOSE (11/14/2023 4:42 AM EDT) [facility] Glucometer, POC 139 65 - 199 mg/dL 11/14/2023 4:42 AM EDT [facility] Comment:Supplemental ranges: <140 mg/dL before meals <180 mg/dL all other times of the day. Blood CAPILLARY BLOOD / Unknown 11/14/2023 4:42 AM EDT 11/14/2023 4:42 AM EDT Timi Person MD POINT OF CARE TEST ORDERABLES [facility] [place] [address] * (ABNORMAL) CBC (with Diff) (11/14/2023 12:10 AM EDT) [facility] White Blood Cell 13.52(H) 4.00 - 9.50 x10(3)/mc L 11/14/2023 12:[facility] Red Blood Cell 4.35(L) 4.58 - 5.54 x10(6)/mc L 11/14/2023 12:28 AM [facility] Hemoglobin 9.4(L) 13.7 - 16.5 g/dL 11/14/2023 12:28 AM [facility] Hematocrit 30.7(L) 40.5 - 48.5 % 11/14/2023 12:28 AM [facility] Mean Cell Volume 70.6(L) 82.9 - 93.1 fL 11/14/2023 12:28 AM [facility] Mean Cell Hemoglobin 21.6(L) 27.5 - 32.1 pg 11/14/2023 12:28 AM [facility] Mean Cell Hemoglobin Concentration 30.6(L) 32.0 - 35.7 g/dL 11/14/2023 12:28 AM [facility] Platelet 404(H) 145 - 357 x10(3)/mc L 11/14/2023 12:28 [facility] Mean Platelet Volume 10.4 7.6 - 12.9 fL 11/14/2023 12:28 AM [facility] RDW Standard Deviation 53.6(H) 36.0 - 45.0 fL 11/14/2023 12:28 AM [facility] RDW coefficient of variation 22.0(H) 11.4 - 13.8 % 11/14/2023 12:28 AM [facility] NRBC% auto 0.0 % 11/14/2023 12:28 AM [facility] NRBC Absolute <0.01 <0.01 x10(3)/mc L 11/14/2023 12:28 AM [facility] Neutrophil % 77.0 % 11/14/2023 12:28 AM [facility] Neutrophil Absolute (ANC) - Automated 10.40(H) 1.70 - 6.10 x10(3)/mc L 11/14/2023 12:28 AM [facility] Lymph % 11.1 % 11/14/2023 12:28 AM [facility] Lymph Absolute 1.50 0.90 - 3.20 x10(3)/mc L 11/14/2023 12:28 AM [facility] Monocyte % 9.5 % 11/14/2023 12:28 AM [facility] Monocyte Absolute 1.29(H) 0.30 - 0.90 x10(3)/mc L 11/14/2023 12:28 AM [facility] Eos % 0.9 % 11/14/2023 12:28 AM [facility] Eos Absolute 0.12 0.00 - 0.40 x10(3)/mc L 11/14/2023 12:28 AM [facility] Basophil % 0.4 % 11/14/2023 12:28 AM [facility] Baso Absolute 0.06 0.00 - 0.10 x10(3)/mc L 11/14/2023 12:28 AM EDT [facility] Immature Gran % 1.1 % 12:28 AM EDT [facility] Immature Gran Absolute 0.15(H) 0.00 - 0.04 x10(3)/mc L 11/14/2023 12:28 AM EDT [facility] Blood VENOUS BLOOD SPECIMEN / Unknown IP Care Team Draw / Unknown 11/14/2023 12:10 AM EDT 11/14/2023 12:19 AM EDT Timi Person MD HEMATOLOGY ORDERABL ES [facility] [place] [address] * (ABNORMAL) Basic Metabolic Panel (11/14/2023 12:10 AM EDT) Glucose 158 65 - 199 mg/dL 11/14/2023 12:49 AM T [facility] Comment:Glucose Concentratio n >=200 mg/dL plus symptoms is consistent with Diabetes Mellitus. Blood Urea Nitrogen 28(H) 10 - 20 mg/dL 11/14/2023 12:49 AM [facility] Creatinine 2.36(H) 0.80 - 1.50 mg/dL 11/14/2023 12:49 AM [facility] Sodium 139 135 - 145 mMol/L 11/14/2023 12:49 AM [facility] Potassium 4.5 3.5 - 5.0 mMol/L 11/14/2023 12:49 AM [facility] Chloride 103 98 - 107 mMol/L 11/14/2023 12:49 AM [facility] Carbon Dioxide 25 22 - 31 mMol/L 11/14/2023 12:49 AM [facility] Anion Gap 11 5 - 15 mMol/L 11/14/2023 12:49 AM [facility] Calcium 8.7 8.5 - 10.5 mg/dL 11/14/2023 12:49 AM EDT [facility] Est Glomerular Filtration Rate - Male 34 mL/min/1. 73 m?? 11/14/2023 12:49 AM EDT [facility] Comment: This patient's estimated GFR [...] Unknown IP Care Team Draw / Unknown 11/14/2023 12:10 AM EDT 11/14/2023 12:19 AM EDT Timi Person MD CHEMISTRY ORDERABLE S [facility] [place] [address] * Phosphorus (11/14/2023 12:10 AM EDT) Phosphorus 3.9 2.5 - 4.5 mg/dL 11/14/2023 12:49 AM EDT [facility] Blood VENOUS BLOOD SPECIMEN / Unknown IP Care Team Draw / Unknown 11/14/2023 12:10 AM EDT 11/14/2023 12:19 AM EDT Timi Person MD CHEMISTRY ORDERABLE S [facility] [place] [address] * Magnesium (11/14/2023 12:10 AM EDT) Magnesium 0.76 0.69 - 1.07 mMol/L 11/14/2023 12:49 AM EDT [facility] Blood VENOUS BLOOD SPECIMEN / Unknown IP Care Team Draw / Unknown 11/14/2023 12:10 AM EDT 11/14/2023 12:19 AM EDT Timi Person MD CHEMISTRY ORDERABLE S [facility] [place] [address] * POC, GLUCOSE (11/13/2023 11:53 PM EDT) Glucometer, POC 146 65 - 199 mg/dL 11/13/2023 11:53 PM EDT [facility] Comment:Supplemental ranges: <140 mg/dL before meals <180 mg/dL all other times of the day. Blood CAPILLARY BLOOD / Unknown 11/13/2023 11:53 PM EDT 11/13/2023 11:53 PM EDT Timi Person MD POINT OF CARE TEST ORDERABLES Performing Organization Address City/[facility]/ZIP Co de Phone Number [facility] [place] [address] * (ABNORMAL) POC, GLUCOSE (11/13/2023 9:01 PM EDT) Glucometer, POC 201(H) 65 - 199 mg/dL 11/13/2023 9:01 PM EDT [facility] Comment:Supplemental ranges: <140 mg/dL before meals <180 mg/dL all other times of the day. Blood CAPILLARY BLOOD / Unknown 11/13/2023 9:01 PM EDT 11/13/2023 9:02 PM EDT Timi Person MD POINT OF CARE TEST ORDERABLES [facility] [place] [address] * POC, GLUCOSE (11/13/2023 4:29 PM EDT) Glucometer, POC 147 65 - 199 mg/dL 11/13/2023 4:30 PM EDT [facility] Comment:Supplemental ranges: <140 mg/dL before meals <180 mg/dL all other times of the day. Blood CAPILLARY BLOOD / Unknown 11/13/2023 4:29 PM EDT 11/13/2023 4:30 PM EDT Timi Person MD POINT OF CARE TEST ORDERABLES [facility] [place] [address] * (ABNORMAL) Basic Metabolic Panel (11/13/2023 4:05 PM EDT) Glucose 184 65 - 199 mg/dL 11/13/2023 5:18 PM EDT [facility] Comment:Glucose Concentratio n >=200 mg/dL plus symptoms is consistent with Diabetes Mellitus. Blood Urea Nitrogen 24(H) 10 - 20 mg/dL 11/13/2023 5:18 PM EDT [facility] Creatinine 1.93(H) 0.80 - 1.50 mg/dL 11/13/2023 5:18 PM EDT [facility] Sodium 140 135 - 145 mMol/L 11/13/2023 5:18 PM EDT [facility] Potassium 4.7 3.5 - 5.0 mMol/L 11/13/2023 5:18 PM EDT [facility] Chloride 105 98 - 107 mMol/L 11/13/2023 5:18 PM EDT [facility] Carbon Dioxide 23 22 - 31 mMol/L 11/13/2023 5:18 PM EDT [facility] Anion Gap 12 5 - 15 mMol/L 11/13/2023 5:18 PM EDT [facility] Calcium 8.7 8.5 - 10.5 mg/dL 11/13/2023 5:18 PM EDT [facility] Est Glomerular Filtration Rate - Male 43 mL/min/1. 73 m?? 11/13/2023 5:18 PM EDT [facility] Comment: This patient's estimated GFR [...] IP Care Team Draw / Unknown 11/13/2023 4:05 PM EDT 11/13/2023 4:50 PM EDT Aby Williamson APRN CHEMISTRY ORDERABL ES Performing Organization Address City/[facility]/ZIP Co de Phone Number [facility] [place] [address] * (ABNORMAL) POC, GLUCOSE (11/13/2023 12:16 PM EDT) Glucometer, POC 206(H) 65 - 199 mg/dL 11/13/2023 12:18 PM EDT [facility] Comment:Supplemental ranges: <140 mg/dL before meals <180 mg/dL all other times of the day. Blood CAPILLARY BLOOD / Unknown 11/13/2023 12:16 PM EDT 11/13/2023 12:18 PM EDT Timi Person MD POINT OF CARE TEST ORDERABLES [facility] [place] [address] * POC, GLUCOSE (11/13/2023 9:25 AM EDT) Glucometer, POC 182 65 - 199 mg/dL 11/13/2023 9:25 AM EDT [facility] Comment:Supplemental ranges: <140 mg/dL before meals <180 mg/dL all other times of the day. Blood CAPILLARY BLOOD / Unknown 11/13/2023 9:25 AM EDT 11/13/2023 9:25 AM EDT Timi Person MD POINT OF CARE TEST ORDERABLES [facility] [place] [address] * (ABNORMAL) Blood Gas, Arterial (11/13/2023 6:35 AM EDT) pH, Arterial 7.44 7.35 - 7.45 11/13/2023 6:46 AM EDT [facility] PCO2, Arterial 37 35 - 45 mmHg 11/13/2023 6:46 AM EDT [facility] PO2, Arterial 108(H) 85 - 104 mmHg 11/13/2023 6:46 AM EDT [facility] Bicarbonate, Arterial 25.0 20.0 - 26.0 mmol/L 11/13/2023 6:46 AM EDT [facility] Base Excess, Arterial 0.9 -3.0 - 3.0 mmol/L 11/13/2023 6:[facility] [address] [facility] Hemoglobin, Arterial 9.0(L) 13.7 - 16.5 g/dL 11/13/2023 6:46 AM EDT [facility] Oxyhemoglobin, Arterial 97.1(H) 94.0 - 97.0 % 11/13/2023 6:46 AM EDT [facility] Carboxyhemoglobin , Arterial 0.3 % 11/13/2023 6:46 AM [facility] Comment: Nonsmokers: 0.5-1.5% COHB ?? Smokers: Variable ??but usually less than 10% ?? Toxic: 20-30% COHB ?? Lethal: Greater than 60% COHB Methemoglobin, Arterial 0.1 <=1.5 % 11/13/2023 6:46 AM EDT [facility] Sodium, Arterial 138 135 - 145 mmol/L 11/13/2023 6:46 AM EDT [facility] IONIZED CALCIUM, ARTERIAL 1.18 1.15 - 1.33 mmol/L 11/13/2023 6:46 AM EDT [facility] Chloride, Arterial 105 98 - 107 mmol/L 11/13/2023 6:46 AM EDT [facility] Potassium, Arterial 4.3 3.5 - 5.0 mmol/L 11/13/2023 6:46 AM EDT [facility] Glucose, Arterial 125 65 - 199 mg/dL 11/13/2023 6:46 AM EDT [facility] Comment:Glucose Concentratio n >=200 mg/dL plus symptoms is consistent with Diabetes Mellitus. Lactate, Arterial 0.8 0.5 - 2.2 mmol/L 11/13/2023 6:46 AM EDT [facility] Blood ARTERIAL BLOOD / Unknown IP Care Team Draw / Unknown 11/13/2023 6:35 AM EDT 11/13/2023 6:40 AM EDT Calos Lazo MD CHEMISTRY ORDERABLES [facility] [place] [address] * Heparin (unfractionated) Level (11/13/2023 6:33 AM EDT) UF Heparin 0.10 IU/mL 11/13/2023 6:51 AM EDT [facility] Comment: Heparin (anti-Xa) levels should [...] AM EDT 11/13/2023 6:37 AM EDT Aby Williamson APRN HEMATOLOGY ORDERAB LES Performing Organization Address City/[facility]/ZIP Co de Phone Number [facility] [place] [address] * POC, GLUCOSE (11/13/2023 4:02 AM EDT) Glucometer, POC 137 65 - 199 mg/dL 11/13/2023 4:03 AM EDT [facility] Comment:Supplemental ranges: <140 mg/dL before meals <180 mg/dL all other times of the day. Blood CAPILLARY BLOOD / Unknown 11/13/2023 4:02 AM EDT 11/13/2023 4:03 AM EDT Timi Person MD POINT OF CARE TEST ORDERABLES Performing Organization Address [facility] Co de Phone Number [facility] [place] [address] * (ABNORMAL) Blood Gas, Arterial (11/13/2023 12:10 AM EDT) pH, Arterial 7.49(H) 7.35 - 7.45 11/13/2023 12:21 AM EDT [facility] PCO2, Arterial 34(L) 35 - 45 mmHg 11/13/2023 12:21 AM EDT [facility] PO2, Arterial 81(L) 85 - 104 mmHg 11/13/2023 12:21 AM EDT [facility] Bicarbonate, Arterial 25.0 20.0 - 26.0 mmol/L 11/13/2023 12:21 AM [facility] Base Excess, Arterial 1.7 -3.0 - 3.0 mmol/L 11/13/2023 12:21 AM [facility] Hemoglobin, Arterial 9.3(L) 13.7 - 16.5 g/dL 11/13/2023 12:21 AM [facility] Oxyhemoglobin, Arterial 95.2 94.0 - 97.0 % 11/13/2023 12:21 AM [facility] Carboxyhemoglobin , Arterial 0.3 % 11/13/2023 12:21 AM [facility] Comment: Nonsmokers: 0.5-1.5% COHB ?? Smokers: Variable ??but usually less than 10% ?? Toxic: 20-30% COHB ?? Lethal: Greater than 60% COHB Methemoglobin, Arterial 0.3 <=1.5 % 11/13/2023 12:21 AM [facility] Sodium, Arterial 137 135 - 145 mmol/L 11/13/2023 12:21 AM [facility] IONIZED CALCIUM, ARTERIAL 1.17 1.15 - 1.33 mmol/L 11/13/2023 12:21 AM [facility] Chloride, Arterial 108(H) 98 - 107 mmol/L 11/13/2023 12:21 AM [facility] Potassium, Arterial 4.3 3.5 - 5.0 mmol/L 11/13/2023 12:21 AM [facility] Glucose, Arterial 96 65 - 199 mg/dL 11/13/2023 12:21 AM [facility] Comment:Glucose Concentratio n >=200 mg/dL plus symptoms is consistent with Diabetes Mellitus. Lactate, Arterial 0.8 0.5 - 2.2 mmol/L 11/13/2023 12:21 AM [facility] Blood ARTERIAL BLOOD / Unknown IP Care Team Draw / Unknown 11/13/2023 12:10 AM EDT 11/13/2023 12:19 AM EDT Calos Lazo MD CHEMISTRY ORDERABLES Performing Organization Address [facility] de Phone Number [facility] [place] [address] * Heparin (unfractionated) Level (11/13/2023 12:09 AM EDT) Pathologist [facility] UF Heparin <0.04 IU/mL 11/13/2023 12:40 AM EDT [facility] Comment: Heparin (anti-Xa) levels should [...] IP Care Team Draw / Unknown 11/13/2023 12:09 AM EDT 11/13/2023 12:18 AM EDT Aby Williamson APRN HEMATOLOGY ORDERAB LES Performing Organization Address [facility]/ZIP Co de Phone Number [facility] [place] [address] * (ABNORMAL) CBC (with Diff) (11/13/2023 12:09 AM EDT) White Blood Cell 14.34(H) 4.00 - 9.50 x10(3)/mc L 11/13/2023 12:32 AM EDT [facility] Red Blood Cell 3.90(L) 4.58 - 5.54 x10(6)/mc L 11/13/2023 12:32 AM [facility] Hemoglobin 8.5(L) 13.7 - 16.5 g/dL 11/13/2023 12:32 AM [facility] Hematocrit 27.7(L) 40.5 - 48.5 % 11/13/2023 12:32 AM [facility] Mean Cell Volume 71.0(L) 82.9 - 93.1 fL 11/13/2023 12:32 AM [facility] Mean Cell Hemoglobin 21.8(L) 27.5 - 32.1 pg 11/13/2023 12:32 AM [facility] Mean Cell Hemoglobin Concentration 30.7(L) 32.0 - 35.7 g/dL 11/13/2023 12:32 AM [facility] Platelet 306 145 - 357 x10(3)/mc L 11/13/2023 12:32 AM [facility] Mean Platelet Volume 10.3 7.6 - 12.9 fL 11/13/2023 12:32 AM [facility] RDW Standard Deviation 54.1(H) 36.0 - 45.0 fL 11/13/2023 12:32 AM [facility] RDW coefficient of variation 21.8(H) 11.4 - 13.8 % 11/13/2023 12:32 AM [facility] NRBC% auto 0.0 % 11/13/2023 12:32 AM [facility] NRBC Absolute <0.01 <0.01 x10(3)/mc L 11/13/2023 12:32 AM [facility] Neutrophil % 78.8 % 11/13/2023 12:32 AM [facility] Neutrophil Absolute (ANC) - Automated 11.30(H) 1.70 - 6.10 x10(3)/mc L 11/13/2023 12:32 AM [facility] Lymph % 10.5 % 11/13/2023 12:32 AM EDT [facility] Lymph Absolute 1.50 0.90 - 3.20 x10(3)/mc L 11/13/2023 12:32 AM EDT [facility] Monocyte % 7.0 % 11/13/2023 12:32 AM EDT [facility] Monocyte Absolute 1.00(H) 0.30 - 0.90 x10(3)/mc L 11/13/2023 12:32 AM EDT [facility] Eos % 1.5 % 11/13/2023 12:32 AM EDT [facility] Eos Absolute 0.22 0.00 - 0.40 x10(3)/mc L 11/13/2023 12:32 AM EDT [facility] Basophil % 0.3 % 11/13/2023 12:32 AM EDT [facility] Baso Absolute 0.05 0.00 - 0.10 x10(3)/mc L 11/13/2023 12:32 AM EDT [facility] Immature Gran % 1.9 % 12:32 AM EDT [facility] Immature Gran Absolute 0.27(H) 0.00 - 0.04 x10(3)/mc L 11/13/2023 12:32 AM EDT [facility] Blood VENOUS BLOOD SPECIMEN / Unknown IP Care Team Draw / Unknown 11/13/2023 12:09 AM EDT 11/13/2023 12:18 AM EDT Timi Person MD HEMATOLOGY ORDERABL ES [facility] [place] [address] * Basic Metabolic Panel (11/13/2023 12:09 AM EDT) Glucose 96 65 - 199 mg/dL 11/13/2023 12:51 AM EDT [facility] Comment:Glucose Concentratio n >=200 mg/dL plus symptoms is consistent with Diabetes Mellitus. Blood Urea Nitrogen 18 10 - 20 mg/dL 11/13/2023 12:51 AM [facility] Creatinine 1.37 0.80 - 1.50 mg/dL 11/13/2023 12:51 AM [facility] Sodium 139 135 - 145 mMol/L 11/13/2023 12:51 AM [facility] Potassium 4.4 3.5 - 5.0 mMol/L 11/13/2023 12:51 AM [facility] Chloride 107 98 - 107 mMol/L 11/13/2023 12:51 AM [facility] Carbon Dioxide 24 22 - 31 mMol/L 11/13/2023 12:51 AM [facility] Anion Gap 8 5 - 15 mMol/L 11/13/2023 12:51 AM [facility] Calcium 8.5 8.5 - 10.5 mg/dL 11/13/2023 12:51 AM [facility] Est Glomerular Filtration Rate - Male 65 mL/min/1. 73 m?? 11/13/2023 12:51 AM [facility] Comment: This patient's estimated GFR [...] IP Care Team Draw / Unknown 11/13/2023 12:09 AM EDT 11/13/2023 12:18 AM EDT Timi Person MD CHEMISTRY ORDERABLE S [facility] [place] [address] * Phosphorus (11/13/2023 12:09 AM EDT) Phosphorus 3.0 2.5 - 4.5 mg/dL 11/13/2023 12:51 AM EDT [facility] Blood VENOUS BLOOD SPECIMEN / Unknown IP Care Team Draw / Unknown 11/13/2023 12:09 AM EDT 11/13/2023 12:18 AM EDT Timi Person MD CHEMISTRY ORDERABLE S [facility] [place] [address] * Magnesium (11/13/2023 12:09 AM EDT) Magnesium 0.75 0.69 - 1.07 mMol/L 11/13/2023 12:51 AM EDT [facility] Blood VENOUS BLOOD SPECIMEN / Unknown IP Care Team Draw / Unknown 11/13/2023 12:09 AM EDT 11/13/2023 12:18 AM EDT Timi Person MD CHEMISTRY ORDERABLE S [facility] [place] [address] * POC, GLUCOSE (11/13/2023 12:08 AM EDT) Glucometer, POC 91 65 - 199 mg/dL 11/13/2023 12:08 AM EDT [facility] Comment:Supplemental ranges: <140 mg/dL before meals <180 mg/dL all other times of the day. Blood CAPILLARY BLOOD / Unknown 11/13/2023 12:08 AM EDT 11/13/2023 12:09 AM EDT Timi Person MD POINT OF CARE TEST ORDERABLES [facility] [place] [address] * POC, GLUCOSE (11/12/2023 8:05 PM EDT) [facility] Glucometer, POC 109 65 - 199 mg/dL 11/12/2023 8:06 PM EDT [facility] Comment:Supplemental ranges: <140 mg/dL before meals <180 mg/dL all other times of the day. Blood CAPILLARY BLOOD / Unknown 11/12/2023 8:05 PM EDT 11/12/2023 8:06 PM EDT Timi Person MD POINT OF CARE TEST ORDERABLES Performing Organization Address City/[facility]/ZIP Co de Phone Number [facility] [place] [address] * (ABNORMAL) Blood Gas, Arterial (11/12/2023 5:54 PM EDT) [facility] pH, Arterial 7.47(H) 7.35 - 7.45 11/12/2023 6:09 PM EDT [facility] PCO2, Arterial 31(L) 35 - 45 mmHg 11/12/2023 6:09 PM EDT [facility] PO2, Arterial 74(L) 85 - 104 mmHg 11/12/2023 6:09 PM EDT [facility] Bicarbonate, Arterial 21.7 20.0 - 26.0 mmol/L 11/12/2023 6:09 PM EDT [facility] Base Excess, Arterial -2.0 -3.0 - 3.0 mmol/L 11/12/2023 6:09 PM EDT [facility] Hemoglobin, Arterial 9.2(L) 13.7 - 16.5 g/dL 11/12/2023 6:09 PM EDT [facility] Oxyhemoglobin, Arterial 94.0 94.0 - 97.0 % 11/12/2023 6:09 PM EDT [facility] Carboxyhemoglobin , Arterial 0.3 % 11/12/2023 6:09 PM EDT [facility] Comment: Nonsmokers: 0.5-1.5% COHB ?? Smokers: Variable ??but usually less than 10% ?? Toxic: 20-30% COHB ?? Lethal: Greater than 60% COHB Methemoglobin, Arterial 0.1 <=1.5 % 11/12/2023 6:09 PM EDT [facility] Sodium, Arterial 139 135 - 145 mmol/L 11/12/2023 6:09 PM EDT [facility] IONIZED CALCIUM, ARTERIAL 1.15 1.15 - 1.33 mmol/L 11/12/2023 6:09 PM EDT [facility] Chloride, Arterial 106 98 - 107 mmol/L 11/12/2023 6:09 PM EDT [facility] Potassium, Arterial 4.0 3.5 - 5.0 mmol/L 11/12/2023 6:09 PM EDT [facility] Glucose, Arterial 103 65 - 199 mg/dL 11/12/2023 6:09 PM EDT [facility] Comment:Glucose Concentratio n >=200 mg/dL plus symptoms is consistent with Diabetes Mellitus. Lactate, Arterial 0.7 0.5 - 2.2 mmol/L 11/12/2023 6:09 PM EDT [facility] Blood ARTERIAL BLOOD / Unknown IP Care Team Draw / Unknown 11/12/2023 5:54 PM EDT 11/12/2023 6:06 PM EDT Calos Lazo MD CHEMISTRY ORDERABLES [facility] [place] [address] * POC, GLUCOSE (11/12/2023 4:27 PM EDT) Glucometer, POC 128 65 - 199 mg/dL 11/12/2023 4:28 PM EDT [facility] Comment:Supplemental ranges: <140 mg/dL before meals <180 mg/dL all other times of the day. Blood CAPILLARY BLOOD / Unknown 11/12/2023 4:27 PM EDT 11/12/2023 4:28 PM EDT Timi Person MD POINT OF CARE TEST ORDERABLES [facility] [place] [address] * (ABNORMAL) Blood Gas, Arterial POC (11/12/2023 12:02 PM EDT) pH, Arterial 7.49(H) 7.35 - 7.45 11/12/2023 12:05 PM EDT [facility] PCO2, Arterial 28(L) 35 - 45 mmHg 11/12/2023 12:05 PM EDT [facility] Bicarbonate, Arterial 21.2 20.0 - 26.0 mmol/L 11/12/2023 12:05 PM EDT [facility] Base Excess, Arterial -2.1 -3.0 - 3.0 mmol/L 11/12/2023 12:05 PM EDT [facility] Hemoglobin, Arterial 9.4(L) 13.7 - 16.5 g/dL 11/12/2023 12:05 PM EDT [facility] Oxyhemoglobin, Arterial 94.0 94.0 - 97.0 % 11/12/2023 12:05 PM EDT [facility] Carboxyhemoglobin , Arterial 0.4 % 11/12/2023 12:05 PM EDT [facility] Comment: Nonsmokers: 0.5-1.5% COHB ?? Smokers: Variable ??but usually less than 10% ?? Toxic: 20-30% COHB ?? Lethal: Greater than 60% COHB Methemoglobin, Arterial 0.3 <=1.5 % 11/12/2023 12:05 PM EDT [facility] Sodium, Arterial 138 135 - 145 mmol/L 11/12/2023 12:05 PM EDT [facility] Potassium, Arterial 3.9 3.5 - 5.0 mmol/L 11/12/2023 12:05 PM EDT [facility] Chloride, Arterial 107 98 - 107 mmol/L 11/12/2023 12:05 PM EDT [facility] Lactate, Arterial 0.7 0.5 - 2.2 mmol/L 11/12/2023 12:05 PM EDT [facility] Flow Rate 3.0 L/min 11/12/2023 12:05 PM EDT [facility] IONIZED CALCIUM, ARTERIAL 1.17 1.15 - 1.33 mmol/L 11/12/2023 12:05 PM EDT [facility] Glucose, Arterial 147 65 - 199 mg/dL 11/12/2023 12:05 PM EDT [facility] Comment:Glucose Concentratio n >=200 mg/dL plus symptoms is consistent with Diabetes Mellitus. Blood ARTERIAL BLOOD / Unknown 11/12/2023 12:02 PM EDT 11/12/2023 12:05 PM EDT Timi Person MD POINT OF CARE TEST ORDERABLES [facility] [place] [address] * POC, GLUCOSE (11/12/2023 8:12 AM EDT) Glucometer, POC 97 65 - 199 mg/dL 11/12/2023 8:12 AM EDT [facility] Comment:Supplemental ranges: <140 mg/dL before meals <180 mg/dL all other times of the day. Blood CAPILLARY BLOOD / Unknown 11/12/2023 8:12 AM EDT 11/12/2023 8:12 AM EDT Timi Person MD POINT OF CARE TEST ORDERABLES [facility] [place] [address] * (ABNORMAL) Blood Gas, Arterial POC (11/12/2023 6:46 AM EDT) pH, Arterial 7.48(H) 7.35 - 7.45 11/12/2023 6:49 AM [facility] PCO2, Arterial 28(L) 35 - 45 mmHg 11/12/2023 6:49 AM [facility] PO2, Arterial 11/12/2023 6:49 AM [facility] Comment:QUES Bicarbonate, Arterial 20.0 20.0 - 26.0 mmol/L 11/12/2023 6:49 AM [facility] Base Excess, Arterial -3.5(L) -3.0 - 3.0 mmol/L 11/12/2023 6:49 AM [facility] Hemoglobin, Arterial 8.0(L) 13.7 - 16.5 g/dL 11/12/2023 6:49 AM [facility] Oxyhemoglobin, Arterial 96.5 94.0 - 97.0 % 11/12/2023 6:49 AM [facility] Carboxyhemoglobin , Arterial 0.8 % 11/12/2023 6:49 AM [facility] Comment: Nonsmokers: 0.5-1.5% COHB ?? Smokers: Variable ??but usually less than 10% ?? Toxic: 20-30% COHB ?? Lethal: Greater than 60% COHB Methemoglobin, Arterial 0.3 <=1.5 % 11/12/2023 6:49 AM [facility] Sodium, Arterial 137 135 - 145 mmol/L 11/12/2023 6:49 AM [facility] Potassium, Arterial 3.6 3.5 - 5.0 mmol/L 11/12/2023 6:49 AM [facility] Chloride, Arterial 109(H) 98 - 107 mmol/L 11/12/2023 6:49 AM [facility] Lactate, Arterial 0.6 0.5 - 2.2 mmol/L 11/12/2023 6:49 AM [facility] Flow Rate 3.0 L/min 11/12/2023 6:49 AM EDT [facility] IONIZED CALCIUM, ARTERIAL 1.13(L) 1.15 - 1.33 mmol/L 11/12/2023 6:49 AM EDT [facility] Glucose, Arterial 87 65 - 199 mg/dL 11/12/2023 6:49 AM EDT [facility] Comment:Glucose Concentratio n >=200 mg/dL plus symptoms is consistent with Diabetes Mellitus. Blood ARTERIAL BLOOD / Unknown 11/12/2023 6:46 AM EDT 11/12/2023 6:49 AM EDT Timi Person MD POINT OF CARE TEST ORDERABLES Performing Organization Address City/State/[facility] Co de Phone Number [facility] [place] [address] * (ABNORMAL) Blood Gas, Arterial POC (11/12/2023 6:42 AM EDT) pH, Arterial 7.48(H) 7.35 - 7.45 11/12/2023 6:45 AM EDT [facility] PCO2, Arterial 32(L) 35 - 45 mmHg 11/12/2023 6:45 AM EDT [facility] PO2, Arterial 11/12/2023 6:45 AM EDT [facility] Comment:QUES Bicarbonate, Arterial 23.1 20.0 - 26.0 mmol/L 11/12/2023 6:45 AM EDT [facility] Base Excess, Arterial -0.5 -3.0 - 3.0 mmol/L 11/12/2023 6:45 AM EDT [facility] Hemoglobin, Arterial 8.1(L) 13.7 - 16.5 g/dL 11/12/2023 6:45 AM EDT [facility] Oxyhemoglobin, Arterial 95.8 94.0 - 97.0 % 11/12/2023 6:45 AM EDT [facility] Carboxyhemoglobin , Arterial 0.5 % 11/12/2023 6:45 AM EDT [facility] Comment: Nonsmokers: 0.5-1.5% COHB ?? Smokers: Variable ??but usually less than 10% ?? Toxic: 20-30% COHB ?? Lethal: Greater than 60% COHB Methemoglobin, Arterial 0.3 <=1.5 % 11/12/2023 6:45 AM EDT [facility] Sodium, Arterial 138 135 - 145 mmol/L 11/12/2023 6:45 AM EDT [facility] Potassium, Arterial 3.6 3.5 - 5.0 mmol/L 11/12/2023 6:45 AM EDT [facility] Chloride, Arterial 110(H) 98 - 107 mmol/L 11/12/2023 6:45 AM EDT [facility] Lactate, Arterial 0.7 0.5 - 2.2 mmol/L 11/12/2023 6:45 AM EDT [facility] Flow Rate 3.0 L/min 11/12/2023 6:45 AM EDT [facility] IONIZED CALCIUM, ARTERIAL 1.11(L) 1.15 - 1.33 mmol/L 11/12/2023 6:45 AM EDT [facility] Glucose, Arterial 91 65 - 199 mg/dL 11/12/2023 6:45 AM EDT [facility] Comment:Glucose Concentratio n >=200 mg/dL plus symptoms is consistent with Diabetes Mellitus. Blood ARTERIAL BLOOD / Unknown 11/12/2023 6:42 AM EDT 11/12/2023 6:45 AM EDT Timi Person MD POINT OF CARE TEST ORDERABLES [facility] [place] [address] * POC, GLUCOSE (11/12/2023 4:07 AM EDT) [facility] Signature Glucometer, POC 85 65 - 199 mg/dL 11/12/2023 4:07 AM EDT [facility] Comment:Supplemental ranges: <140 mg/dL before meals <180 mg/dL all other times of the day. Blood CAPILLARY BLOOD / Unknown 11/12/2023 4:07 AM EDT 11/12/2023 4:07 AM EDT Timi Person MD POINT OF CARE TEST ORDERABLES Performing Organization Address [facility] Co de Phone Number [facility] [place] [address] * POC, GLUCOSE (11/12/2023 2:04 AM EDT) Glucometer, POC 82 65 - 199 mg/dL 11/12/2023 2:05 AM EDT [facility] Comment:Supplemental ranges: <140 mg/dL before meals <180 mg/dL all other times of the day. Blood CAPILLARY BLOOD / Unknown 11/12/2023 2:04 AM EDT 11/12/2023 2:05 AM EDT Timi Person MD POINT OF CARE TEST ORDERABLES Performing Organization Address [facility] de Phone Number [facility] [place] [address] * (ABNORMAL) Blood Gas, Arterial POC (11/12/2023 12:12 AM EDT) pH, Arterial 7.49(H) 7.35 - 7.45 11/12/2023 12:13 AM EDT [facility] PCO2, Arterial 32(L) 35 - 45 mmHg 11/12/2023 12:13 AM EDT [facility] PO2, Arterial 93 85 - 104 mmHg 11/12/2023 12:13 AM EDT [facility] Bicarbonate, Arterial 24.0 20.0 - 26.0 mmol/L 11/12/2023 12:13 AM EDT [facility] Base Excess, Arterial 0.6 -3.0 - 3.0 mmol/L 11/12/2023 12:13 AM [facility] Hemoglobin, Arterial 9.6(L) 13.7 - 16.5 g/dL 11/12/2023 12:13 AM [facility] Oxyhemoglobin, Arterial 96.4 94.0 - 97.0 % 11/12/2023 12:13 AM [facility] Carboxyhemoglobin , Arterial 0.3 % 11/12/2023 12:13 AM [facility] Comment: Nonsmokers: 0.5-1.5% COHB ?? Smokers: Variable ??but usually less than 10% ?? Toxic: 20-30% COHB ?? Lethal: Greater than 60% COHB Methemoglobin, Arterial 0.3 <=1.5 % 11/12/2023 12:13 AM [facility] Sodium, Arterial 139 135 - 145 mmol/L 11/12/2023 12:13 AM [facility] Potassium, Arterial 3.7 3.5 - 5.0 mmol/L 11/12/2023 12:13 AM [facility] Chloride, Arterial 110(H) 98 - 107 mmol/L 11/12/2023 12:13 AM [facility] Lactate, Arterial 0.7 0.5 - 2.2 mmol/L 11/12/2023 12:13 AM [facility] Flow Rate 3.0 L/min 11/12/2023 12:13 AM [facility] IONIZED CALCIUM, ARTERIAL 1.13(L) 1.15 - 1.33 mmol/L 11/12/2023 12:13 AM [facility] Glucose, Arterial 72 65 - 199 mg/dL 11/12/2023 12:13 AM [facility] Comment:Glucose Concentratio n >=200 mg/dL plus symptoms is consistent with Diabetes Mellitus. Blood ARTERIAL BLOOD / Unknown 11/12/2023 12:12 AM EDT 11/12/2023 12:13 AM EDT Timi Person MD POINT OF CARE TEST ORDERABLES Performing Organization Address [facility] Co de Phone Number [facility] [place] [address] * Heparin (unfractionated) Level (11/12/2023 12:09 AM EDT) UF Heparin 0.13 IU/mL 11/12/2023 12:39 AM EDT [facility] Comment: Heparin (anti-Xa) levels should [...] Unknown IP Care Team Draw / Unknown 11/12/2023 12:09 AM EDT 11/12/2023 12:16 AM EDT Aby Williamson APRN HEMATOLOGY ORDERAB LES Performing Organization Address City/[facility]/ZIP Co de Phone Number [facility] [place] [address] * (ABNORMAL) CBC (with Diff) (11/12/2023 12:09 AM EDT) White Blood Cell 15.72(H) 4.00 - 9.50 x10(3)/mc L 11/12/2023 12:30 AM EDT [facility] Red Blood Cell 3.87(L) 4.58 - 5.54 x10(6)/mc L 11/12/2023 12:30 AM [facility] Hemoglobin 8.4(L) 13.7 - 16.5 g/dL 11/12/2023 12:30 AM [facility] Hematocrit 27.4(L) 40.5 - 48.5 % 11/12/2023 12:30 AM [facility] Mean Cell Volume 70.8(L) 82.9 - 93.1 fL 11/12/2023 12:30 AM [facility] Mean Cell Hemoglobin 21.7(L) 27.5 - 32.1 pg 11/12/2023 12:30 AM [facility] Mean Cell Hemoglobin Concentration 30.7(L) 32.0 - 35.7 g/dL 11/12/2023 12:30 AM [facility] Platelet 310 145 - 357 x10(3)/mc L 11/12/2023 12:30 AM [facility] Mean Platelet Volume 10.7 7.6 - 12.9 fL 11/12/2023 12:30 AM [facility] RDW Standard Deviation 53.7(H) 36.0 - 45.0 fL 11/12/2023 12:30 AM [facility] RDW coefficient of variation 21.9(H) 11.4 - 13.8 % 11/12/2023 12:30 AM [facility] NRBC% auto 0.1 % 11/12/2023 12:30 AM [facility] NRBC Absolute 0.02(H) <0.01 x10(3)/mc L 11/12/2023 12:30 AM [facility] Neutrophil % 79.6 % 11/12/2023 12:30 AM [facility] Neutrophil Absolute (ANC) - Automated 12.49(H) 1.70 - 6.10 x10(3)/mc L 11/12/2023 12:30 AM [facility] Lymph % 11.6 % 11/12/2023 12:30 AM EDT [facility] Lymph Absolute 1.83 0.90 - 3.20 x10(3)/mc L 11/12/2023 12:30 AM EDT [facility] Monocyte % 5.7 % 11/12/2023 12:30 AM EDT [facility] Monocyte Absolute 0.90 0.30 - 0.90 x10(3)/mc L 11/12/2023 12:30 AM EDT [facility] Eos % 1.0 % 11/12/2023 12:30 AM EDT [facility] Eos Absolute 0.16 0.00 - 0.40 x10(3)/mc L 11/12/2023 12:30 AM EDT [facility] Basophil % 0.3 % 11/12/2023 12:30 AM EDT [facility] Baso Absolute 0.05 0.00 - 0.10 x10(3)/mc L 11/12/2023 12:30 AM EDT [facility] Immature Gran % 1.8 % 12:30 AM EDT [facility] Immature Gran Absolute 0.29(H) 0.00 - 0.04 x10(3)/mc L 11/12/2023 12:30 AM EDT [facility] Blood VENOUS BLOOD SPECIMEN / Unknown IP Care Team Draw / Unknown 11/12/2023 12:09 AM EDT 11/12/2023 12:16 AM EDT Timi Person MD HEMATOLOGY ORDERABL ES [facility] [address] * Basic Metabolic Panel (11/12/2023 12:09 AM EDT) Glucose 84 65 - 199 mg/dL 11/12/2023 12:45 AM EDT [facility] Comment:Glucose Concentratio n >=200 mg/dL plus symptoms is consistent with Diabetes Mellitus. Blood Urea Nitrogen 19 10 - 20 mg/dL 11/12/2023 12:45 AM [facility] Creatinine 1.40 0.80 - 1.50 mg/dL 11/12/2023 12:45 AM [facility] Sodium 140 135 - 145 mMol/L 11/12/2023 12:45 AM [facility] Potassium 4.4 3.5 - 5.0 mMol/L 11/12/2023 12:45 AM [facility] Chloride 105 98 - 107 mMol/L 11/12/2023 12:45 AM [facility] Carbon Dioxide 24 22 - 31 mMol/L 11/12/2023 12:45 AM [facility] Anion Gap 11 5 - 15 mMol/L 11/12/2023 12:45 AM [facility] Calcium 8.8 8.5 - 10.5 mg/dL 11/12/2023 12:45 AM [facility] Est Glomerular Filtration Rate - Male 63 mL/min/1. 73 m?? 11/12/2023 12:45 AM [facility] Comment: This patient's estimated GFR [...] Unknown IP Care Team Draw / Unknown 11/12/2023 12:09 AM EDT 11/12/2023 12:16 AM EDT Timi Person MD CHEMISTRY ORDERABLE S [facility] [place] [address] * Phosphorus (11/12/2023 12:09 AM EDT) Phosphorus 3.0 2.5 - 4.5 mg/dL 11/12/2023 12:45 AM EDT [facility] Blood VENOUS BLOOD SPECIMEN / Unknown IP Care Team Draw / Unknown 11/12/2023 12:09 AM EDT 11/12/2023 12:16 AM EDT Timi Person MD CHEMISTRY ORDERABLE S [facility] [place] [address] * Magnesium (11/12/2023 12:09 AM EDT) Magnesium 0.84 0.69 - 1.07 mMol/L 11/12/2023 12:45 AM EDT [facility] Blood VENOUS BLOOD SPECIMEN / Unknown IP Care Team Draw / Unknown 11/12/2023 12:09 AM EDT 11/12/2023 12:16 AM EDT Timi Person MD CHEMISTRY ORDERABLE S [facility] [place] [address] * POC, GLUCOSE (11/12/2023 12:08 AM EDT) Glucometer, POC 85 65 - 199 mg/dL 11/12/2023 12:09 AM EDT [facility] Comment:Supplemental ranges: <140 mg/dL before meals <180 mg/dL all other times of the day. Blood CAPILLARY BLOOD / Unknown 11/12/2023 12:08 AM EDT 11/12/2023 12:09 AM EDT Timi Person MD POINT OF CARE TEST ORDERABLES [facility] [place] [address] * POC, GLUCOSE (11/11/2023 8:29 PM EDT) [facility] Signature Glucometer, POC 114 65 - 199 mg/dL 11/11/2023 8:29 PM EDT [facility] Comment:Supplemental ranges: <140 mg/dL before meals <180 mg/dL all other times of the day. Blood CAPILLARY BLOOD / Unknown 11/11/2023 8:29 PM EDT 11/11/2023 8:29 PM EDT Timi Person MD POINT OF CARE TEST ORDERABLES [facility] [place] [address] * (ABNORMAL) Blood Gas, Arterial POC (11/11/2023 5:59 PM EDT) [facility] Signature pH, Arterial 7.49(H) 7.35 - 7.45 11/11/2023 6:00 PM EDT [facility] PCO2, Arterial 32(L) 35 - 45 mmHg 11/11/2023 6:00 PM EDT [facility] PO2, Arterial 78(L) 85 - 104 mmHg 11/11/2023 6:00 PM EDT [facility] Bicarbonate, Arterial 23.7 20.0 - 26.0 mmol/L 11/11/2023 6:00 PM EDT [facility] Base Excess, Arterial 0.3 -3.0 - 3.0 mmol/L 11/11/2023 6:00 PM EDT [facility] Hemoglobin, Arterial 9.6(L) 13.7 - 16.5 g/dL 11/11/2023 6:00 PM EDT [facility] Oxyhemoglobin, Arterial 94.7 94.0 - 97.0 % 11/11/2023 6:00 PM EDT [facility] Carboxyhemoglobin , Arterial 0.1 % 11/11/2023 6:00 PM EDT [facility] Comment: Nonsmokers: 0.5-1.5% COHB ?? Smokers: Variable ??but usually less than 10% ?? Toxic: 20-30% COHB ?? Lethal: Greater than 60% COHB Methemoglobin, Arterial 0.3 <=1.5 % 11/11/2023 6:00 PM EDT [facility] Sodium, Arterial 137 135 - 145 mmol/L 11/11/2023 6:00 PM EDT [facility] Potassium, Arterial 4.6 3.5 - 5.0 mmol/L 11/11/2023 6:00 PM EDT [facility] Chloride, Arterial 105 98 - 107 mmol/L 11/11/2023 6:00 PM EDT [facility] Lactate, Arterial 0.9 0.5 - 2.2 mmol/L 11/11/2023 6:00 PM EDT [facility] Flow Rate 3.0 L/min 11/11/2023 6:00 PM EDT [facility] IONIZED CALCIUM, ARTERIAL 1.23 1.15 - 1.33 mmol/L 11/11/2023 6:00 PM EDT [facility] Glucose, Arterial 140 65 - 199 mg/dL 11/11/2023 6:00 PM EDT [facility] Comment:Glucose Concentratio n >=200 mg/dL plus symptoms is consistent with Diabetes Mellitus. Blood ARTERIAL BLOOD / Unknown 11/11/2023 5:59 PM EDT 11/11/2023 6:00 PM EDT Timi Person MD POINT OF CARE TEST ORDERABLES [facility] [place] [address] * Heparin (unfractionated) Level (11/11/2023 5:57 PM EDT) UF Heparin 0.16 IU/mL 11/11/2023 6:18 PM EDT [facility] Comment: Heparin (anti-Xa) levels should [...] IP Care Team Draw / Unknown 11/11/2023 5:57 PM EDT 11/11/2023 6:07 PM EDT Aby Williamson APRN HEMATOLOGY ORDERAB LES Performing Organization Address City/[facility] Co de Phone Number [facility] [place] [address] * POC, GLUCOSE (11/11/2023 4:34 PM EDT) [facility] Signature Glucometer, POC 140 65 - 199 mg/dL 11/11/2023 4:35 PM EDT [facility] Comment:Supplemental ranges: <140 mg/dL before meals <180 mg/dL all other times of the day. Blood CAPILLARY BLOOD / Unknown 11/11/2023 4:34 PM EDT 11/11/2023 4:35 PM EDT Timi Person MD POINT OF CARE TEST ORDERABLES Performing Organization Address [facility] Co de Phone Number [facility] [place] [address] * (ABNORMAL) Blood Gas, Arterial POC (11/11/2023 11:58 AM EDT) pH, Arterial 7.47(H) 7.35 - 7.45 11/11/2023 11:59 AM [facility] PCO2, Arterial 31(L) 35 - 45 mmHg 11/11/2023 11:59 AM [facility] PO2, Arterial 88 85 - 104 mmHg 11/11/2023 11:59 AM [facility] Bicarbonate, Arterial 22.0 20.0 - 26.0 mmol/L 11/11/2023 11:59 AM [facility] Base Excess, Arterial -1.6 -3.0 - 3.0 mmol/L 11/11/2023 11:59 AM [facility] Hemoglobin, Arterial 9.4(L) 13.7 - 16.5 g/dL 11/11/2023 11:59 AM [facility] Oxyhemoglobin, Arterial 96.0 94.0 - 97.0 % 11/11/2023 11:59 AM [facility] Carboxyhemoglobin , Arterial 0.3 % 11/11/2023 11:59 AM [facility] Comment: Nonsmokers: 0.5-1.5% COHB ?? Smokers: Variable ??but usually less than 10% ?? Toxic: 20-30% COHB ?? Lethal: Greater than 60% COHB Methemoglobin, Arterial 0.3 <=1.5 % 11/11/2023 11:59 AM [facility] Sodium, Arterial 137 135 - 145 mmol/L 11/11/2023 11:59 AM [facility] Potassium, Arterial 4.1 3.5 - 5.0 mmol/L 11/11/2023 11:59 AM [facility] Chloride, Arterial 107 98 - 107 mmol/L 11/11/2023 11:59 AM [facility] Lactate, Arterial 0.7 0.5 - 2.2 mmol/L 11/11/2023 11:59 AM [facility] Flow Rate 5.0 L/min 11/11/2023 11:59 AM [facility] IONIZED CALCIUM, ARTERIAL 1.15 1.15 - 1.33 mmol/L 11/11/2023 11:59 AM EDT [facility] Glucose, Arterial 139 65 - 199 mg/dL 11/11/2023 11:59 AM EDT [facility] Comment:Glucose Concentratio n >=200 mg/dL plus symptoms is consistent with Diabetes Mellitus. Blood ARTERIAL BLOOD / Unknown 11/11/2023 11:58 AM EDT 11/11/2023 11:59 AM EDT Timi Person MD POINT OF CARE TEST ORDERABLES [facility] [place] [address] * XR Abdomen 1 view (Generic) (11/11/2023 9:52 AM EDT) WORKSTATION ID [id number] RAD Anatomical Region Laterality Modality Abdomen N/A [...] who have questions please contact the health personal care assistant that requested your imaging first. ? Narrative [...] patients who have questions please contactthe health personal care assistant that requested your imaging first. Timi Person MD IMG DX ORDERABLES * POC, GLUCOSE (11/11/2023 8:42 AM EDT) [facility] Glucometer, POC 145 65 - 199 mg/dL 11/11/2023 8:43 AM EDT [facility] Comment:Supplemental ranges: <140 mg/dL before meals <180 mg/dL all other times of the day. Blood CAPILLARY BLOOD / Unknown 11/11/2023 8:42 AM EDT 11/11/2023 8:43 AM EDT Timi Person MD POINT OF CARE TEST ORDERABLES [facility] [place] [address] * (ABNORMAL) Lipase (11/11/2023 8:39 AM EDT) Lipase 82(H) 0 - 60 unit/L 11/11/2023 9:32 AM EDT [facility] Blood VENOUS BLOOD SPECIMEN / Unknown IP Care Team Draw / Unknown 11/11/2023 8:39 AM EDT 11/11/2023 8:46 AM EDT Timi Person MD CHEMISTRY ORDERABLE S [facility] [place] [address] * Amylase (11/11/2023 8:39 AM EDT) Amylase 63 28 - 100 unit/L 11/11/2023 9:32 AM EDT [facility] Blood VENOUS BLOOD SPECIMEN / Unknown IP Care Team Draw / Unknown 11/11/2023 8:39 AM EDT 11/11/2023 8:46 AM EDT Tmii Person MD CHEMISTRY ORDERABLE S [facility] [place] [address] * (ABNORMAL) Hepatic Function Panel (11/11/2023 8:39 AM EDT) Albumin 2.7(L) 3.2 - 5.2 g/dL 11/11/2023 9:32 AM EDT [facility] Aspartate Aminotransferase 47(H) <=39 unit/L 11/11/2023 9:32 AM EDT [facility] Alanine Aminotransferase 39 0 - 55 unit/L 11/11/2023 9:32 AM EDT [facility] Alkaline Phosphatase 142(H) 40 - 130 unit/L 11/11/2023 9:32 AM EDT [facility] Bilirubin, Total 0.3 <=1.3 mg/dL 11/11/2023 9:32 AM EDT [facility] Bilirubin, Direct <0.2 0.0 - 0.3 mg/dL 11/11/2023 9:32 AM EDT [facility] Protein, Total 6.5 6.1 - 8.0 g/dL 11/11/2023 9:32 AM EDT [facility] Blood VENOUS BLOOD SPECIMEN / Unknown IP Care Team Draw / Unknown 11/11/2023 8:39 AM EDT 11/11/2023 8:46 AM EDT Timi Person MD CHEMISTRY ORDERABLE S [facility] [place] [address] * (ABNORMAL) Blood Gas, Arterial POC (11/11/2023 6:36 AM EDT) pH, Arterial 7.49(H) 7.35 - 7.45 11/11/2023 6:37 AM EDT [facility] PCO2, Arterial 31(L) 35 - 45 mmHg 11/11/2023 6:37 AM EDT [facility] PO2, Arterial 105(H) 85 - 104 mmHg 11/11/2023 6:37 AM EDT [facility] Bicarbonate, Arterial 23.1 20.0 - 26.0 mmol/L 11/11/2023 6:37 AM EDT [facility] Base Excess, Arterial -0.2 -3.0 - 3.0 mmol/L 11/11/2023 6:37 AM EDT [facility] Hemoglobin, Arterial 9.2(L) 13.7 - 16.5 g/dL 11/11/2023 6:37 AM EDT [facility] Oxyhemoglobin, Arterial 97.4(H) 94.0 - 97.0 % 11/11/2023 6:37 AM EDT [facility] Carboxyhemoglobin , Arterial 0.1 % 11/11/2023 6:37 AM EDT [facility] Comment: Nonsmokers: 0.5-1.5% COHB ?? Smokers: Variable ??but usually less than 10% ?? Toxic: 20-30% COHB ?? Lethal: Greater than 60% COHB Methemoglobin, Arterial 0.3 <=1.5 % 11/11/2023 6:37 AM EDT [facility] Sodium, Arterial 136 135 - 145 mmol/L 11/11/2023 6:[facility] Potassium, Arterial 4.1 3.5 - 5.0 mmol/L 11/11/2023 6:37 AM [facility] Chloride, Arterial 106 98 - 107 mmol/L 11/11/2023 6:37 AM T [facility] Lactate, Arterial 0.8 0.5 - 2.2 mmol/L 11/11/2023 6:37 AM [facility] Fraction of Inspired Oxygen 40 % 11/11/2023 6:37 AM [facility] PF Ratio 263 Ratio 11/11/2023 6:37 AM [facility] Comment:PF ratio calculated using the non-temperature corrected pO2 result. IONIZED CALCIUM, ARTERIAL 1.16 1.15 - 1.33 mmol/L 11/11/2023 6:37 AM EDT [facility] Glucose, Arterial 154 65 - 199 mg/dL 11/11/2023 6:37 AM EDT [facility] Comment:Glucose Concentratio n >=200 mg/dL plus symptoms is consistent with Diabetes Mellitus. Blood ARTERIAL BLOOD / Unknown 11/11/2023 6:36 AM EDT 11/11/2023 6:37 AM EDT Timi Person MD POINT OF CARE TEST ORDERABLES [facility] [place] [address] * Heparin (unfractionated) Level (11/11/2023 6:33 AM EDT) UF Heparin 0.33 IU/mL 11/11/2023 6:53 AM EDT [facility] Comment: Heparin (anti-Xa) levels should [...] IP Care Team Draw / Unknown 11/11/2023 6:33 AM EDT 11/11/2023 6:43 AM EDT Aby Williamson APRN HEMATOLOGY ORDERAB LES [facility] [place] [address] * POC, GLUCOSE (11/11/2023 4:06 AM EDT) Pathologist [facility] Glucometer, POC 146 65 - 199 mg/dL 11/11/2023 4:06 AM EDT [facility] Comment:Supplemental ranges: <140 mg/dL before meals <180 mg/dL all other times of the day. Blood CAPILLARY BLOOD / Unknown 11/11/2023 4:06 AM EDT 11/11/2023 4:06 AM EDT Timi Person MD POINT OF CARE TEST ORDERABLES [facility] [place] [address] * (ABNORMAL) Blood Gas, Arterial POC (11/11/2023 12:14 AM EDT) pH, Arterial 7.46(H) 7.35 - 7.45 11/11/2023 12:15 AM [facility] PCO2, Arterial 31(L) 35 - 45 mmHg 11/11/2023 12:15 AM [facility] PO2, Arterial 130(H) 85 - 104 mmHg 11/11/2023 12:15 AM [facility] Bicarbonate, Arterial 21.7 20.0 - 26.0 mmol/L 11/11/2023 12:15 AM [facility] Base Excess, Arterial -2.1 -3.0 - 3.0 mmol/L 11/11/2023 12:15 AM [facility] Hemoglobin, Arterial 9.5(L) 13.7 - 16.5 g/dL 11/11/2023 12:15 AM [facility] Oxyhemoglobin, Arterial 97.8(H) 94.0 - 97.0 % 11/11/2023 12:15 AM [facility] Carboxyhemoglobin , Arterial 0.3 % 11/11/2023 12:15 AM [facility] Comment: Nonsmokers: 0.5-1.5% COHB ?? Smokers: Variable ??but usually less than 10% ?? Toxic: 20-30% COHB ?? Lethal: Greater than 60% COHB Methemoglobin, Arterial 0.3 <=1.5 % 11/11/2023 12:15 AM [facility] Sodium, Arterial 137 135 - 145 mmol/L 11/11/2023 12:15 AM [facility] Potassium, Arterial 3.8 3.5 - 5.0 mmol/L 11/11/2023 12:15 AM [facility] Chloride, Arterial 108(H) 98 - 107 mmol/L 11/11/2023 12:15 AM EDT [facility] Lactate, Arterial 0.7 0.5 - 2.2 mmol/L 11/11/2023 12:15 AM EDT [facility] Fraction of Inspired Oxygen 50 % 11/11/2023 12:15 AM EDT [facility] PF Ratio 260 Ratio 11/11/2023 12:15 AM EDT [facility] Comment:PF ratio calculated using the non-temperature corrected pO2 result. IONIZED CALCIUM, ARTERIAL 1.12(L) 1.15 - 1.33 mmol/L 11/11/2023 12:15 AM EDT [facility] Glucose, Arterial 137 65 - 199 mg/dL 11/11/2023 12:15 AM EDT [facility] Comment:Glucose Concentratio n >=200 mg/dL plus symptoms is consistent with Diabetes Mellitus. Blood ARTERIAL BLOOD / Unknown 11/11/2023 12:14 AM EDT 11/11/2023 12:15 AM EDT Timi Person MD POINT OF CARE TEST ORDERABLES [facility] [place] [address] * Heparin (unfractionated) Level (11/11/2023 12:12 AM EDT) UF Heparin 0.46 IU/mL 11/11/2023 12:28 AM EDT [facility] Comment: Heparin (anti-Xa) levels should be determined in a plasma sample that has been drawn 6 hours after a dose change to approximate steady-state for continuous heparin infusions. Indication specific Heparin (anti-Xa) levels based on order set selection: Acute DVT or PE prevention: ? 0.3-0.7 IU/mL Thrombosis Prevention (e.g. atrial fibrillation, ulis miguel-procedural bridging, mechanical valves): ? 0.3-0.7 IU/mL Acute Coronary Syndrome: ? 0.3-0.7 IU/mL Stroke Indications: ? 0.3-0.5 IU/mL Ultra-low intensity (select indications in cardiac surgery): ? 0.1-0.3 IU/mL Blood VENOUS BLOOD SPECIMEN / Unknown IP Care Team Draw / Unknown 11/11/2023 12:12 AM EDT 11/11/2023 12:16 AM EDT Aby Williamson [employer]ARM EQUIPMENT OPERATOR HEMATOLOGY ORDERAB LES Performing Organization Address City/State/[facility] Co de Phone Number [facility] [place] [address] * (ABNORMAL) CBC (with Diff) (11/11/2023 12:12 AM EDT) White Blood Cell 21.85(H) 4.00 - 9.50 x10(3)/mc L 11/11/2023 12:21 AM EDT [facility] Red Blood Cell 4.03(L) 4.58 - 5.54 x10(6)/mc L 11/11/2023 12:21 AM EDT [facility] Hemoglobin 8.8(L) 13.7 - 16.5 g/dL 11/11/2023 12:21 AM T [facility] Hematocrit 28.4(L) 40.5 - 48.5 % 11/11/2023 12:21 AM [facility] Mean Cell Volume 70.5(L) 82.9 - 93.1 fL 11/11/2023 12:21 AM EDT [facility] Mean Cell Hemoglobin 21.8(L) 27.5 - 32.1 pg 11/11/2023 12:21 AM EDT [facility] Mean Cell Hemoglobin Concentration 31.0(L) 32.0 - 35.7 g/dL 11/11/2023 12:21 AM EDT [facility] Platelet 307 145 - 357 x10(3)/mc L 11/11/2023 12:21 AM EDT [facility] Mean Platelet Volume 10.6 7.6 - 12.9 fL 11/11/2023 12:21 AM [facility] RDW Standard Deviation 54.3(H) 36.0 - 45.0 fL 11/11/2023 12:21 AM [facility] RDW coefficient of variation 21.9(H) 11.4 - 13.8 % 11/11/2023 12:21 AM [facility] NRBC% auto 0.1 % 11/11/2023 12:21 AM [facility] NRBC Absolute 0.03(H) <0.01 x10(3)/mc L 11/11/2023 12:21 AM [facility] Neutrophil % 85.3 % 11/11/2023 12:21 AM [facility] Neutrophil Absolute (ANC) - Automated 18.63(H) 1.70 - 6.10 x10(3)/mc L 11/11/2023 12:21 AM [facility] Lymph % 7.9 % 11/11/2023 12:21 AM [facility] Lymph Absolute 1.73 0.90 - 3.20 x10(3)/mc L 11/11/2023 12:21 AM [facility] Monocyte % 3.4 % 11/11/2023 12:21 AM [facility] Monocyte Absolute 0.74 0.30 - 0.90 x10(3)/mc L 11/11/2023 12:21 AM [facility] Eos % 0.9 % 11/11/2023 12:21 AM [facility] Eos Absolute 0.20 0.00 - 0.40 x10(3)/mc L 11/11/2023 12:21 AM [facility] Basophil % 0.3 % 11/11/2023 12:21 AM [facility] Baso Absolute 0.06 0.00 - 0.10 x10(3)/mc L 11/11/2023 12:21 AM [facility] Immature Gran % 2.2 % 12:21 AM EDT [facility] Immature Gran Absolute 0.49(H) 0.00 - 0.04 x10(3)/mc L 11/11/2023 12:21 AM EDT [facility] Blood VENOUS BLOOD SPECIMEN / Unknown IP Care Team Draw / Unknown 11/11/2023 12:12 AM EDT 11/11/2023 12:16 AM EDT Timi Person MD HEMATOLOGY ORDERABL ES [facility] [place] [address] * (ABNORMAL) Basic Metabolic Panel (11/11/2023 12:12 AM EDT) Glucose 158 65 - 199 mg/dL 11/11/2023 12:48 AM EDT [facility] Comment:Glucose Concentratio n >=200 mg/dL plus symptoms is consistent with Diabetes Mellitus. Blood Urea Nitrogen 27(H) 10 - 20 mg/dL 11/11/2023 12:48 AM T [facility] Creatinine 1.66(H) 0.80 - 1.50 mg/dL 11/11/2023 12:48 AM T [facility] Sodium 137 135 - 145 mMol/L 11/11/2023 12:48 AM EDT [facility] Potassium 4.5 3.5 - 5.0 mMol/L 11/11/2023 12:48 AM EDT [facility] Chloride 104 98 - 107 mMol/L 11/11/2023 12:48 [facility] Carbon Dioxide 22 22 - 31 mMol/L 11/11/2023 12:48 AM [facility] Anion Gap 11 5 - 15 mMol/L 11/11/2023 12:48 AM [facility] Calcium 8.8 8.5 - 10.5 mg/dL 11/11/2023 12:48 AM [facility] Est Glomerular Filtration Rate - Male 51 mL/min/1. 73 m?? 11/11/2023 12:48 AM EDT [facility] Comment: This patient's estimated GFR [...] IP Care Team Draw / Unknown 11/11/2023 12:12 AM EDT 11/11/2023 12:16 AM EDT Timi Person MD CHEMISTRY ORDERABLE S [facility] [place] [address] * Phosphorus (11/11/2023 12:12 AM EDT) Phosphorus 3.0 2.5 - 4.5 mg/dL 11/11/2023 12:48 AM EDT [facility] Blood VENOUS BLOOD SPECIMEN / Unknown IP Care Team Draw / Unknown 11/11/2023 12:12 AM EDT 11/11/2023 12:16 AM EDT Timi Person MD CHEMISTRY ORDERABLE S [facility] [place] [address] * Magnesium (11/11/2023 12:12 AM EDT) Magnesium 0.78 0.69 - 1.07 mMol/L 11/11/2023 12:48 AM EDT [facility] Blood VENOUS BLOOD SPECIMEN / Unknown IP Care Team Draw / Unknown 11/11/2023 12:12 AM EDT 11/11/2023 12:16 AM EDT Timi Person MD CHEMISTRY ORDERABLE S [facility] [place] [address] * POC, GLUCOSE (11/11/2023 12:11 AM EDT) Glucometer, POC 151 65 - 199 mg/dL 11/11/2023 12:11 AM EDT [facility] Comment:Supplemental ranges: <140 mg/dL before meals <180 mg/dL all other times of the day. Blood CAPILLARY BLOOD / Unknown 11/11/2023 12:11 AM EDT 11/11/2023 12:11 AM EDT Timi Person MD POINT OF CARE TEST ORDERABLES Performing Organization Address City/[facility]/ZIP Co de Phone Number [facility] [place] [address] * POC, GLUCOSE (11/10/2023 8:10 PM EDT) Glucometer, POC 162 65 - 199 mg/dL 11/10/2023 8:10 PM EDT [facility] Comment:Supplemental ranges: <140 mg/dL before meals <180 mg/dL all other times of the day. Blood CAPILLARY BLOOD / Unknown 11/10/2023 8:10 PM EDT 11/10/2023 8:10 PM EDT Timi Person MD POINT OF CARE TEST ORDERABLES [facility] [place] [address] * (ABNORMAL) Blood Gas, Arterial POC (11/10/2023 6:15 PM EDT) pH, Arterial 7.47(H) 7.35 - 7.45 11/10/2023 6:16 PM [facility] PCO2, Arterial 34(L) 35 - 45 mmHg 11/10/2023 6:16 PM [facility] PO2, Arterial 87 85 - 104 mmHg 11/10/2023 6:16 PM [facility] Bicarbonate, Arterial 24.0 20.0 - 26.0 mmol/L 11/10/2023 6:16 PM [facility] Base Excess, Arterial 0.3 -3.0 - 3.0 mmol/L 11/10/2023 6:16 PM [facility] Hemoglobin, Arterial 10.2(L) 13.7 - 16.5 g/dL 11/10/2023 6:16 PM [facility] Oxyhemoglobin, Arterial 96.2 94.0 - 97.0 % 11/10/2023 6:16 PM [facility] Carboxyhemoglobin , Arterial 0.0 % 11/10/2023 6:16 PM [facility] Comment: Nonsmokers: 0.5-1.5% COHB ?? Smokers: Variable ??but usually less than 10% ?? Toxic: 20-30% COHB ?? Lethal: Greater than 60% COHB Methemoglobin, Arterial 0.3 <=1.5 % 11/10/2023 6:16 PM [facility] Sodium, Arterial 137 135 - 145 mmol/L 11/10/2023 6:16 PM [facility] Potassium, Arterial 4.6 3.5 - 5.0 mmol/L 11/10/2023 6:16 PM [facility] Chloride, Arterial 105 98 - 107 mmol/L 11/10/2023 6:16 PM [facility] Lactate, Arterial 0.9 0.5 - 2.2 mmol/L 11/10/2023 6:16 PM [facility] Flow Rate 6.0 L/min 11/10/2023 6:16 PM [facility] IONIZED CALCIUM, ARTERIAL 1.19 1.15 - 1.33 mmol/L 11/10/2023 6:16 PM EDT [facility] Glucose, Arterial 166 65 - 199 mg/dL 11/10/2023 6:16 PM EDT [facility] Comment:Glucose Concentratio n >=200 mg/dL plus symptoms is consistent with Diabetes Mellitus. Blood ARTERIAL BLOOD / Unknown 11/10/2023 6:15 PM EDT 11/10/2023 6:16 PM EDT Timi Person MD POINT OF CARE TEST ORDERABLES Performing Organization Address [facility] Co de Phone Number [facility] [place] [address] * Heparin (unfractionated) Level (11/10/2023 6:13 PM EDT) UF Heparin 0.42 IU/mL 11/10/2023 6:38 PM EDT [facility] Comment: Heparin (anti-Xa) levels should [...] IP Care Team Draw / Unknown 11/10/2023 6:13 PM EDT 11/10/2023 6:30 PM EDT Aby Williamson APRN HEMATOLOGY ORDERAB LES Performing Organization Address City/[facility]/ZIP Co de Phone Number [facility] [place] [address] * POC, GLUCOSE (11/10/2023 4:50 PM EDT) Glucometer, POC 162 65 - 199 mg/dL 11/10/2023 4:50 PM EDT [facility] Comment:Supplemental ranges: <140 mg/dL before meals <180 mg/dL all other times of the day. Blood CAPILLARY BLOOD / Unknown 11/10/2023 4:50 PM EDT 11/10/2023 4:51 PM EDT Timi Person MD POINT OF CARE TEST ORDERABLES Performing Organization Address City/[facility]/ZIP Co de Phone Number [facility] [place] [address] * C diff Screen (11/10/2023 2:17 PM EDT) C Diff Interp Negative Negative 11/10/2023 11:23 PM EDT [facility] C Diff PCR Negative Negative 11/10/2023 11:23 PM EDT [facility] Stool STOOL SPECIMEN / Unknown Non Blood Collection / Unknown 11/10/2023 2:17 PM EDT 11/10/2023 2:51 PM EDT Aby Williamson APRN MICROBIOLOGY - GEN ERAL ORDERABLES Performing Organization Address City/[facility]/ZIP Co de Phone Number [facility] [place] [address] * C Diff PCR (11/10/2023 2:17 PM EDT) Stool STOOL SPECIMEN / Unknown Non Blood Collection / Unknown 11/10/2023 2:17 PM EDT 11/10/2023 2:51 PM EDT Aby Williamson APRN MICROBIOLOGY - GEN ERAL ORDERABLES [facility] [place] [address] * (ABNORMAL) Blood Gas, Arterial POC (11/10/2023 12:43 PM EDT) pH, Arterial 7.45 7.35 - 7.45 11/10/2023 12:44 PM [facility] PCO2, Arterial 30(L) 35 - 45 mmHg 11/10/2023 12:44 PM [facility] PO2, Arterial 75(L) 85 - 104 mmHg 11/10/2023 12:44 PM [facility] Bicarbonate, Arterial 19.9(L) 20.0 - 26.0 mmol/L 11/10/2023 12:44 PM [facility] Base Excess, Arterial -4.1(L) -3.0 - 3.0 mmol/L 11/10/2023 12:44 PM [facility] Hemoglobin, Arterial 10.3(L) 13.7 - 16.5 g/dL 11/10/2023 12:44 PM [facility] Oxyhemoglobin, Arterial 94.6 94.0 - 97.0 % 11/10/2023 12:44 PM [facility] Carboxyhemoglobin , Arterial 0.3 % 11/10/2023 12:44 PM [facility] Comment: Nonsmokers: 0.5-1.5% COHB ?? Smokers: Variable ??but usually less than 10% ?? Toxic: 20-30% COHB ?? Lethal: Greater than 60% COHB Methemoglobin, Arterial 0.3 <=1.5 % 11/10/2023 12:44 PM [facility] Sodium, Arterial 138 135 - 145 mmol/L 11/10/2023 12:44 PM [facility] Potassium, Arterial 4.1 3.5 - 5.0 mmol/L 11/10/2023 12:44 PM [facility] Chloride, Arterial 107 98 - 107 mmol/L 11/10/2023 12:44 PM [facility] Lactate, Arterial 1.0 0.5 - 2.2 mmol/L 11/10/2023 12:44 PM EDT [facility] Flow Rate 6.0 L/min 11/10/2023 12:44 PM EDT [facility] IONIZED CALCIUM, ARTERIAL 1.16 1.15 - 1.33 mmol/L 11/10/2023 12:44 PM EDT [facility] Glucose, Arterial 160 65 - 199 mg/dL 11/10/2023 12:44 PM EDT [facility] Comment:Glucose Concentratio n >=200 mg/dL plus symptoms is consistent with Diabetes Mellitus. Blood ARTERIAL BLOOD / Unknown 11/10/2023 12:43 PM EDT 11/10/2023 12:44 PM EDT Timi Person MD POINT OF CARE TEST ORDERABLES Performing Organization Address City/[facility]/ZIP Co de Phone Number [facility] [place] [address] * EKG 12 Lead (11/10/2023 12:25 PM EDT) Ventricular rate 135 BPM MUSE SYSTEM Atrial Rate 135 BPM MUSE SYSTEM P-R Interval 138 ms MUSE SYSTEM QRS Duration 106 ms MUSE SYSTEM Q-T Interval 288 ms MUSE SYSTEM QTC Calculated (Bezet) 432 ms MUSE SYSTEM Calculated P [place] 45 degrees MUSE SYSTEM Calculated R [place] 91 degrees MUSE SYSTEM Calculated T [place] -21 degrees MUSE SYSTEM INTERPRETATION Probable Sinus tachycardia Rightward axis Incomplete right bundle branch block 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 rate has increased BY ??60 BPM T wave inversion now evident in Lateral leads Confirmed by MD SMITH ARMIN ([id number]) on 11/10/2023 9:45:23 PM MUSE SYSTEM 11/10/2023 12:2 5 PM EDT 11/10/2023 9:45 PM EDT Aby Williamson APRN ECG ORDERABLES MUSE SYSTEM * Scan, Peripheral Blood (11/10/2023 10:55 AM EDT) Pathologist [facility] RBC Morphology Abnormal 11/10/2023 12:32 PM EDT [facility] Platelet Estimate Normal Normal 024 12:32 PM EDT [facility] Microcyte 1-5 /HPF 11/10/2023 12:32 PM EDT [facility] Hypochromasia Slight 11/10/2023 12:32 PM EDT [facility] Polychromasia Present 11/10/2023 12:32 PM EDT [facility] Ovalocytes 1-5 /HPF 11/10/2023 12:32 PM EDT [facility] Blood VENOUS BLOOD SPECIMEN / Unknown IP Care Team Draw / Unknown 11/10/2023 10:55 AM EDT 11/10/2023 10:59 AM EDT Aby Williamson [employer]ARM EQUIPMENT OPERATOR HEMATOLOGY ORDERAB LES Performing Organization Address City/State/[facility] Co de Phone Number [facility] [place] [address] * (ABNORMAL) CBC (with Diff) (11/10/2023 10:55 AM EDT) Pathologist [facility] White Blood Cell 22.58(H) 4.00 - 9.50 x10(3)/mc L 11/10/2023 12:32 PM EDT [facility] Red Blood Cell 4.57(L) 4.58 - 5.54 x10(6)/mc L 11/10/2023 12:32 PM EDT [facility] Hemoglobin 9.9(L) 13.7 - 16.5 g/dL 11/10/2023 12:32 PM EDT [facility] Hematocrit 32.2(L) 40.5 - 48.5 % 11/10/2023 12:32 PM EDT [facility] Mean Cell Volume 70.5(L) 82.9 - 93.1 fL 11/10/2023 12:32 PM EDT [facility] Mean Cell Hemoglobin 21.7(L) 27.5 - 32.1 pg 11/10/2023 12:32 PM [facility] Mean Cell Hemoglobin Concentration 30.7(L) 32.0 - 35.7 g/dL 11/10/2023 12:32 PM [facility] Platelet 315 145 - 357 x10(3)/mc L 11/10/2023 12:32 PM [facility] Mean Platelet Volume 10.4 7.6 - 12.9 fL 11/10/2023 12:32 PM [facility] RDW Standard Deviation 54.3(H) 36.0 - 45.0 fL 11/10/2023 12:32 PM [facility] RDW coefficient of variation 22.2(H) 11.4 - 13.8 % 11/10/2023 12:32 PM [facility] NRBC% auto 0.1 % 11/10/2023 12:32 PM [facility] NRBC Absolute 0.03(H) <0.01 x10(3)/mc L 11/10/2023 12:32 PM [facility] Neutrophil % 88.2 % 11/10/2023 12:32 PM [facility] Neutrophil Absolute (ANC) - Automated 19.92(H) 1.70 - 6.10 x10(3)/mc L 11/10/2023 12:32 PM [facility] Lymph % 4.8 % 11/10/2023 12:32 PM [facility] Lymph Absolute 1.08 0.90 - 3.20 x10(3)/mc L 11/10/2023 12:32 PM [facility] Monocyte % 2.8 % 11/10/2023 12:32 PM [facility] Monocyte Absolute 0.63 0.30 - 0.90 x10(3)/mc L 11/10/2023 12:32 PM [facility] Eos % 1.1 % 11/10/2023 12:32 PM EDT [facility] Eos Absolute 0.25 0.00 - 0.40 x10(3)/mc L 11/10/2023 12:32 PM EDT [facility] Basophil % 0.3 % 11/10/2023 12:32 PM EDT [facility] Baso Absolute 0.07 0.00 - 0.10 x10(3)/mc L 11/10/2023 12:32 PM EDT [facility] Immature Gran % 2.8 % 12:32 PM EDT [facility] Immature Gran Absolute 0.63(H) 0.00 - 0.04 x10(3)/mc L 11/10/2023 12:32 PM EDT [facility] Blood VENOUS BLOOD SPECIMEN / Unknown IP Care Team Draw / Unknown 11/10/2023 10:55 AM EDT 11/10/2023 10:59 AM EDT Aby Williamson [employer]ARM EQUIPMENT OPERATOR HEMATOLOGY ORDERAB LES [facility] [place] [address] * (ABNORMAL) Blood Gas, Arterial POC (11/10/2023 10:48 AM EDT) pH, Arterial 7.48(H) 7.35 - 7.45 11/10/2023 10:49 AM EDT [facility] PCO2, Arterial 33(L) 35 - 45 mmHg 11/10/2023 10:49 AM EDT [facility] PO2, Arterial 86 85 - 104 mmHg 11/10/2023 10:49 AM EDT [facility] Bicarbonate, Arterial 23.5 20.0 - 26.0 mmol/L 11/10/2023 10:49 AM EDT [facility] Base Excess, Arterial -0.1 -3.0 - 3.0 mmol/L 11/10/2023 10:49 AM [facility] Hemoglobin, Arterial 10.8(L) 13.7 - 16.5 g/dL 11/10/2023 10:49 AM [facility] Oxyhemoglobin, Arterial 96.5 94.0 - 97.0 % 11/10/2023 10:49 AM [facility] Carboxyhemoglobin , Arterial 0.0 % 11/10/2023 10:49 AM [facility] Comment: Nonsmokers: 0.5-1.5% COHB ?? Smokers: Variable ??but usually less than 10% ?? Toxic: 20-30% COHB ?? Lethal: Greater than 60% COHB Methemoglobin, Arterial 0.3 <=1.5 % 11/10/2023 10:49 AM [facility] Sodium, Arterial 136 135 - 145 mmol/L 11/10/2023 10:49 AM [facility] Potassium, Arterial 4.5 3.5 - 5.0 mmol/L 11/10/2023 10:49 AM [facility] Chloride, Arterial 104 98 - 107 mmol/L 11/10/2023 10:49 AM [facility] Lactate, Arterial 1.1 0.5 - 2.2 mmol/L 11/10/2023 10:49 AM [facility] Fraction of Inspired Oxygen 40 % 11/10/2023 10:49 AM [facility] PF Ratio 215 Ratio 11/10/2023 10:49 AM [facility] Comment:PF ratio calculated using the non-temperature corrected pO2 result. IONIZED CALCIUM, ARTERIAL 1.21 1.15 - 1.33 mmol/L 11/10/2023 10:49 AM [facility] Glucose, Arterial 184 65 - 199 mg/dL 11/10/2023 10:49 AM [facility] Comment:Glucose Concentratio n >=200 mg/dL plus symptoms is consistent with Diabetes Mellitus. Blood ARTERIAL BLOOD / Unknown 11/10/2023 10:48 AM EDT 11/10/2023 10:49 AM EDT Timi Person MD POINT OF CARE TEST ORDERABLES [facility] [place] [address] * (ABNORMAL) Blood Gas, Arterial POC (11/10/2023 8:14 AM EDT) pH, Arterial 7.45 7.35 - 7.45 11/10/2023 8:16 AM EDT [facility] PCO2, Arterial 33(L) 35 - 45 mmHg 11/10/2023 8:16 AM EDT [facility] PO2, Arterial 81(L) 85 - 104 mmHg 11/10/2023 8:16 AM EDT [facility] Bicarbonate, Arterial 22.6 20.0 - 26.0 mmol/L 11/10/2023 8:16 AM EDT [facility] Base Excess, Arterial -1.4 -3.0 - 3.0 mmol/L 11/10/2023 8:[facility] Hemoglobin, Arterial 10.2(L) 13.7 - 16.5 g/dL 11/10/2023 8:16 AM [facility] Oxyhemoglobin, Arterial 95.0 94.0 - 97.0 % 11/10/2023 8:16 AM EDT [facility] Carboxyhemoglobin , Arterial 0.1 % 11/10/2023 8:16 AM [facility] Comment: Nonsmokers: 0.5-1.5% COHB ?? Smokers: Variable ??but usually less than 10% ?? Toxic: 20-30% COHB ?? Lethal: Greater than 60% COHB Methemoglobin, Arterial 0.3 <=1.5 % 11/10/2023 8:16 AM EDT [facility] Sodium, Arterial 136 135 - 145 mmol/L 11/10/2023 8:16 AM EDT [facility] Potassium, Arterial 4.3 3.5 - 5.0 mmol/L 11/10/2023 8:16 AM EDT [facility] Chloride, Arterial 106 98 - 107 mmol/L 11/10/2023 8:16 AM EDT [facility] Lactate, Arterial 0.8 0.5 - 2.2 mmol/L 11/10/2023 8:16 AM EDT [facility] IONIZED CALCIUM, ARTERIAL 1.16 1.15 - 1.33 mmol/L 11/10/2023 8:16 AM EDT [facility] Glucose, Arterial 206(H) 65 - 199 mg/dL 11/10/2023 8:16 AM EDT [facility] Comment:Glucose Concentratio n >=200 mg/dL plus symptoms is consistent with Diabetes Mellitus. Blood ARTERIAL BLOOD / Unknown 11/10/2023 8:14 AM EDT 11/10/2023 8:15 AM EDT Timi Person MD POINT OF CARE TEST ORDERABLES [facility] [place] [address] * (ABNORMAL) Blood Gas, Arterial POC (11/10/2023 5:53 AM EDT) pH, Arterial 7.40 7.35 - 7.45 11/10/2023 5:55 AM EDT [facility] PCO2, Arterial 41 35 - 45 mmHg 11/10/2023 5:55 AM EDT [facility] PO2, Arterial 91 85 - 104 mmHg 11/10/2023 5:55 AM EDT [facility] Bicarbonate, Arterial 24.4 20.0 - 26.0 mmol/L 11/10/2023 5:55 AM EDT [facility] Base Excess, Arterial -0.5 -3.0 - 3.0 mmol/L 11/10/2023 5:55 AM EDT [facility] Hemoglobin, Arterial 9.7(L) 13.7 - 16.5 g/dL 11/10/2023 5:55 AM EDT [facility] Oxyhemoglobin, Arterial 96.1 94.0 - 97.0 % 11/10/2023 5:55 AM EDT [facility] Carboxyhemoglobin, Arterial 0.0 % 11/10/2023 5:55 AM EDT [facility] Comment: Nonsmokers: 0.5-1.5% COHB ?? Smokers: Variable ??but usually less than 10% ?? Toxic: 20-30% COHB ?? Lethal: Greater than 60% COHB Methemoglobin, Arterial 0.3 <=1.5 % 11/10/2023 5:55 AM EDT [facility] Sodium, Arterial 136 135 - 145 mmol/L 11/10/2023 5:55 AM EDT [facility] Potassium, Arterial 4.4 3.5 - 5.0 mmol/L 11/10/2023 5:55 AM EDT [facility] Chloride, Arterial 105 98 - 107 mmol/L 11/10/2023 5:55 AM EDT [facility] Lactate, Arterial 0.7 0.5 - 2.2 mmol/L 11/10/2023 5:55 AM EDT [facility] IONIZED CALCIUM, ARTERIAL 1.20 1.15 - 1.33 mmol/L 11/10/2023 5:55 AM EDT [facility] Glucose, Arterial 154 65 - 199 mg/dL 11/10/2023 5:55 AM EDT [facility] Comment:Glucose Concentratio n >=200 mg/dL plus symptoms is consistent with Diabetes Mellitus. Blood ARTERIAL BLOOD / Unknown 11/10/2023 5:53 AM EDT 11/10/2023 5:55 AM EDT Timi Person MD POINT OF CARE TEST ORDERABLES [facility] [place] [address] * POC, GLUCOSE (11/10/2023 4:11 AM EDT) Glucometer, POC 176 65 - 199 mg/dL 11/10/2023 4:12 AM EDT [facility] Comment:Supplemental ranges: <140 mg/dL before meals <180 mg/dL all other times of the day. Blood CAPILLARY BLOOD / Unknown 11/10/2023 4:11 AM EDT 11/10/2023 4:12 AM EDT Timi Person MD POINT OF CARE TEST ORDERABLES [facility] [place] [address] * (ABNORMAL) Blood Gas, Arterial POC (11/10/2023 12:45 AM EDT) [facility] Signature pH, Arterial 7.46(H) 7.35 - 7.45 11/10/2023 12:[facility] PCO2, Arterial 37 35 - 45 mmHg 11/10/2023 12:46 AM [facility] PO2, Arterial 70(L) 85 - 104 mmHg 11/10/2023 12:46 AM [facility] Bicarbonate, Arterial 25.6 20.0 - 26.0 mmol/L 11/10/2023 12:46 AM [facility] Base Excess, Arterial 1.8 -3.0 - 3.0 mmol/L 11/10/2023 12:46 AM [facility] Hemoglobin, Arterial 10.3(L) 13.7 - 16.5 g/dL 11/10/2023 12:46 AM [facility] Oxyhemoglobin, Arterial 93.4(L) 94.0 - 97.0 % 11/10/2023 12:46 AM [facility] Carboxyhemoglobin , Arterial 0.3 % 11/10/2023 12:46 AM [facility] Comment: Nonsmokers: 0.5-1.5% COHB ?? Smokers: Variable ??but usually less than 10% ?? Toxic: 20-30% COHB ?? Lethal: Greater than 60% COHB Methemoglobin, Arterial 0.3 <=1.5 % 11/10/2023 12:46 AM EDT [facility] Sodium, Arterial 136 135 - 145 mmol/L 11/10/2023 12:46 AM EDT [facility] Potassium, Arterial 4.7 3.5 - 5.0 mmol/L 11/10/2023 12:46 AM EDT [facility] Chloride, Arterial 103 98 - 107 mmol/L 11/10/2023 12:46 AM EDT [facility] Lactate, Arterial 0.8 0.5 - 2.2 mmol/L 11/10/2023 12:46 AM EDT [facility] IONIZED CALCIUM, ARTERIAL 1.21 1.15 - 1.33 mmol/L 11/10/2023 12:46 AM EDT [facility] Glucose, Arterial 190 65 - 199 mg/dL 11/10/2023 12:46 AM EDT [facility] Comment:Glucose Concentratio n >=200 mg/dL plus symptoms is consistent with Diabetes Mellitus. Blood ARTERIAL BLOOD / Unknown 11/10/2023 12:45 AM EDT 11/10/2023 12:46 AM EDT Timi Person MD POINT OF CARE TEST ORDERABLES [facility] [place] [address] * (ABNORMAL) CBC (with Diff) (11/10/2023 12:43 AM EDT) White Blood Cell 19.87(H) 4.00 - 9.50 x10(3)/mc L 11/10/2023 1:06 AM EDT [facility] Red Blood Cell 4.33(L) 4.58 - 5.54 x10(6)/mc L 11/10/2023 1:06 AM EDT [facility] Hemoglobin 9.4(L) 13.7 - 16.5 g/dL 11/10/2023 1:06 AM [facility] Hematocrit 30.3(L) 40.5 - 48.5 % 11/10/2023 1:06 AM [facility] Mean Cell Volume 70.0(L) 82.9 - 93.1 fL 11/10/2023 1:06 AM [facility] Mean Cell Hemoglobin 21.7(L) 27.5 - 32.1 pg 11/10/2023 1:06 AM [facility] Mean Cell Hemoglobin Concentration 31.0(L) 32.0 - 35.7 g/dL 11/10/2023 1:06 AM [facility] Platelet 269 145 - 357 x10(3)/mc L 11/10/2023 1:06 AM [facility] Mean Platelet Volume 10.5 7.6 - 12.9 fL 11/10/2023 1:06 AM [facility] RDW Standard Deviation 53.0(H) 36.0 - 45.0 fL 11/10/2023 1:06 AM [facility] RDW coefficient of variation 21.9(H) 11.4 - 13.8 % 11/10/2023 1:06 AM [facility] NRBC% auto 0.2 % 11/10/2023 1:06 AM [facility] NRBC Absolute 0.04(H) 0.00 - 0.00 x10(3)/mc L 11/10/2023 1:06 AM [facility] Neutrophil % 88.1 % 11/10/2023 1:06 AM [facility] Neutrophil Absolute (ANC) - Automated 17.51(H) 1.70 - 6.10 x10(3)/mc L 11/10/2023 1:06 AM [facility] Lymph % 6.5 % 11/10/2023 1:06 AM [facility] Lymph Absolute 1.29 0.90 - 3.20 x10(3)/mc L 11/10/2023 1:06 AM EDT [facility] Monocyte % 1.6 % 11/10/2023 1:06 AM EDT [facility] Monocyte Absolute 0.31 0.30 - 0.90 x10(3)/mc L 11/10/2023 1:06 AM EDT [facility] Eos % 1.2 % 11/10/2023 1:06 AM EDT [facility] Eos Absolute 0.24 0.00 - 0.40 x10(3)/mc L 11/10/2023 1:06 AM EDT [facility] Basophil % 0.2 % 11/10/2023 1:06 AM EDT [facility] Baso Absolute 0.04 0.00 - 0.10 x10(3)/mc L 11/10/2023 1:06 AM EDT [facility] Immature Gran % 2.4 % 1:06 AM EDT [facility] Immature Gran Absolute 0.48(H) 0.00 - 0.04 x10(3)/mc L 11/10/2023 1:06 AM EDT [facility] Blood VENOUS BLOOD SPECIMEN / Unknown IP Care Team Draw / Unknown 11/10/2023 12:43 AM EDT 11/10/2023 12:51 AM EDT Timi Person MD HEMATOLOGY ORDERABL ES [facility] [place] [address] * (ABNORMAL) Basic Metabolic Panel (11/10/2023 12:43 AM EDT) Glucose 184 65 - 199 mg/dL 11/10/2023 1:19 AM EDT [facility] Comment:Glucose Concentratio n >=200 mg/dL plus symptoms is consistent with Diabetes Mellitus. Blood Urea Nitrogen 31(H) 10 - 20 mg/dL 11/10/2023 1:19 AM [facility] Creatinine 1.63(H) 0.80 - 1.50 mg/dL 11/10/2023 1:19 AM [facility] Sodium 136 135 - 145 mMol/L 11/10/2023 1:19 AM [facility] Potassium 4.7 3.5 - 5.0 mMol/L 11/10/2023 1:19 AM [facility] Chloride 102 98 - 107 mMol/L 11/10/2023 1:19 AM [facility] Carbon Dioxide 23 22 - 31 mMol/L 11/10/2023 1:19 AM [facility] Anion Gap 11 5 - 15 mMol/L 11/10/2023 1:19 AM [facility] Calcium 9.1 8.5 - 10.5 mg/dL 11/10/2023 1:19 AM [facility] Est Glomerular Filtration Rate - Male 53 mL/min/1. 73 m?? 11/10/2023 1:19 AM [facility] Comment: This patient's estimated GFR [...] IP Care Team Draw / Unknown 11/10/2023 12:43 AM EDT 11/10/2023 12:51 AM EDT Timi Person MD CHEMISTRY ORDERABLE S [facility] [place] [address] * Phosphorus (11/10/2023 12:43 AM EDT) Phosphorus 3.2 2.5 - 4.5 mg/dL 11/10/2023 1:19 AM EDT [facility] Blood VENOUS BLOOD SPECIMEN / Unknown IP Care Team Draw / Unknown 11/10/2023 12:43 AM EDT 11/10/2023 12:51 AM EDT Timi Person MD CHEMISTRY ORDERABLE S [facility] [place] [address] * Magnesium (11/10/2023 12:43 AM EDT) Magnesium 0.82 0.69 - 1.07 mMol/L 11/10/2023 1:19 AM EDT [facility] Blood VENOUS BLOOD SPECIMEN / Unknown IP Care Team Draw / Unknown 11/10/2023 12:43 AM EDT 11/10/2023 12:51 AM EDT Timi Person MD CHEMISTRY ORDERABLE S [facility] [place] [address] * POC, GLUCOSE (11/09/2023 8:30 PM EDT) Pathologist [facility] Glucometer, POC 170 65 - 199 mg/dL 11/09/2023 8:30 PM EDT [facility] Comment:Supplemental ranges: <140 mg/dL before meals <180 mg/dL all other times of the day. Blood CAPILLARY BLOOD / Unknown 11/09/2023 8:30 PM EDT 11/09/2023 8:31 PM EDT Timi Person MD POINT OF CARE TEST ORDERABLES [facility] [place] [address] * Phosphorus (11/09/2023 3:59 PM EDT) Pathologist [facility] Phosphorus 2.9 2.5 - 4.5 mg/dL 11/09/2023 5:18 PM EDT [facility] Blood VENOUS BLOOD SPECIMEN / Unknown IP Care Team Draw / Unknown 11/09/2023 3:59 PM EDT 11/09/2023 4:39 PM EDT Calos Lazo MD CHEMISTRY ORDERABLES [facility] [place] [address] * (ABNORMAL) Blood Gas, Arterial POC (11/09/2023 3:57 PM EDT) Pathologist [facility] pH, Arterial 7.42 7.35 - 7.45 11/09/2023 3:58 PM EDT [facility] PCO2, Arterial 38 35 - 45 mmHg 11/09/2023 3:58 PM EDT [facility] PO2, Arterial 84(L) 85 - 104 mmHg 11/09/2023 3:58 PM EDT [facility] Bicarbonate, Arterial 24.2 20.0 - 26.0 mmol/L 11/09/2023 3:58 PM EDT [facility] Base Excess, Arterial -0.3 -3.0 - 3.0 mmol/L 11/09/2023 3:58 PM EDT [facility] Hemoglobin, Arterial 10.3(L) 13.7 - 16.5 g/dL 11/09/2023 3:58 PM EDT [facility] Oxyhemoglobin, Arterial 95.7 94.0 - 97.0 % 11/09/2023 3:58 PM EDT [facility] Carboxyhemoglobin , Arterial 0.0 % 11/09/2023 3:58 PM EDT [facility] Comment: Nonsmokers: 0.5-1.5% COHB ?? Smokers: Variable ??but usually less than 10% ?? Toxic: 20-30% COHB ?? Lethal: Greater than 60% COHB Methemoglobin, Arterial 0.3 <=1.5 % 11/09/2023 3:58 PM EDT [facility] Sodium, Arterial 134(L) 135 - 145 mmol/L 11/09/2023 3:58 PM EDT [facility] Potassium, Arterial 4.8 3.5 - 5.0 mmol/L 11/09/2023 3:58 PM EDT [facility] Chloride, Arterial 103 98 - 107 mmol/L 11/09/2023 3:58 PM EDT [facility] Lactate, Arterial 0.8 0.5 - 2.2 mmol/L 11/09/2023 3:58 PM EDT [facility] Fraction of Inspired Oxygen 40 % 11/09/2023 3:58 PM EDT [facility] PF Ratio 210 Ratio 11/09/2023 3:58 PM EDT [facility] Comment:PF ratio calculated using the non-temperature corrected pO2 result. IONIZED CALCIUM, ARTERIAL 1.21 1.15 - 1.33 mmol/L 11/09/2023 3:58 PM EDT [facility] Glucose, Arterial 216(H) 65 - 199 mg/dL 11/09/2023 3:58 PM EDT [facility] Comment:Glucose Concentratio n >=200 mg/dL plus symptoms is consistent with Diabetes Mellitus. Blood ARTERIAL BLOOD / Unknown 11/09/2023 3:57 PM EDT 11/09/2023 3:58 PM EDT Timi Person MD POINT OF CARE TEST ORDERABLES [facility] [place] [address] * (ABNORMAL) Blood Gas, Arterial POC (11/09/2023 1:59 PM EDT) pH, Arterial 7.43 7.35 - 7.45 11/09/2023 2:00 PM EDT [facility] PCO2, Arterial 37 35 - 45 mmHg 11/09/2023 2:00 PM EDT [facility] PO2, Arterial 71(L) 85 - 104 mmHg 11/09/2023 2:00 PM EDT [facility] Bicarbonate, Arterial 24.2 20.0 - 26.0 mmol/L 11/09/2023 2:00 PM EDT [facility] Base Excess, Arterial -0.2 -3.0 - 3.0 mmol/L 11/09/2023 2:00 PM EDT [facility] Hemoglobin, Arterial 10.5(L) 13.7 - 16.5 g/dL 11/09/2023 2:00 PM [facility] Oxyhemoglobin, Arterial 93.8(L) 94.0 - 97.0 % 11/09/2023 2:00 PM T [facility] Carboxyhemoglobin , Arterial 0.1 % 11/09/2023 2:00 PM T [facility] Comment: Nonsmokers: 0.5-1.5% COHB ?? Smokers: Variable ??but usually less than 10% ?? Toxic: 20-30% COHB ?? Lethal: Greater than 60% COHB Methemoglobin, Arterial 0.3 <=1.5 % 11/09/2023 2:00 PM T [facility] Sodium, Arterial 137 135 - 145 mmol/L 11/09/2023 2:00 PM EDT [facility] Potassium, Arterial 4.2 3.5 - 5.0 mmol/L 11/09/2023 2:00 PM EDT [facility] Chloride, Arterial 106 98 - 107 mmol/L 11/09/2023 2:00 PM [facility] Lactate, Arterial 0.8 0.5 - 2.2 mmol/L 11/09/2023 2:00 PM [facility] Fraction of Inspired Oxygen 40 % 11/09/2023 2:00 PM EDT [facility] PF Ratio 178 Ratio 11/09/2023 2:00 PM T [facility] Comment:PF ratio calculated using the non-temperature corrected pO2 result. IONIZED CALCIUM, ARTERIAL 1.19 1.15 - 1.33 mmol/L 11/09/2023 2:00 PM EDT [facility] Glucose, Arterial 169 65 - 199 mg/dL 11/09/2023 2:00 PM EDT [facility] Comment:Glucose Concentratio n >=200 mg/dL plus symptoms is consistent with Diabetes Mellitus. Blood ARTERIAL BLOOD / Unknown 11/09/2023 1:59 PM EDT 11/09/2023 2:00 PM EDT Timi Person MD POINT OF CARE TEST ORDERABLES [facility] [place] [address] * (ABNORMAL) Blood Gas, Arterial POC (11/09/2023 11:34 AM EDT) pH, Arterial 7.44 7.35 - 7.45 11/09/2023 11:35 AM EDT [facility] PCO2, Arterial 35 35 - 45 mmHg 11/09/2023 11:35 AM EDT [facility] PO2, Arterial 74(L) 85 - 104 mmHg 11/09/2023 11:35 AM EDT [facility] Bicarbonate, Arterial 23.1 20.0 - 26.0 mmol/L 11/09/2023 11:35 AM EDT [facility] Base Excess, Arterial -1.0 -3.0 - 3.0 mmol/L 11/09/2023 11:35 AM EDT [facility] Hemoglobin, Arterial 11.1(L) 13.7 - 16.5 g/dL 11/09/2023 11:35 AM EDT [facility] Oxyhemoglobin, Arterial 94.8 94.0 - 97.0 % 11/09/2023 11:35 AM EDT [facility] Carboxyhemoglobin , Arterial 0.1 % 11/09/2023 11:35 AM EDT [facility] Comment: Nonsmokers: 0.5-1.5% COHB ?? Smokers: Variable ??but usually less than 10% ?? Toxic: 20-30% COHB ?? Lethal: Greater than 60% COHB Methemoglobin, Arterial 0.3 <=1.5 % 11/09/2023 11:35 AM EDT [facility] Sodium, Arterial 135 135 - 145 mmol/L 11/09/2023 11:35 AM EDT [facility] Potassium, Arterial 4.4 3.5 - 5.0 mmol/L 11/09/2023 11:35 AM EDT [facility] Chloride, Arterial 105 98 - 107 mmol/L 11/[facility]23 [facility] Lactate, Arterial 0.8 0.5 - 2.2 mmol/L 11/09/2023 11:35 AM EDT [facility] Fraction of Inspired Oxygen 40 % 11/09/2023 11:35 AM T [facility] PF Ratio 185 Ratio 11/09/2023 11:35 AM EDT [facility] Comment:PF ratio calculated using the non-temperature corrected pO2 result. IONIZED CALCIUM, ARTERIAL 1.20 1.15 - 1.33 mmol/L 11/09/2023 11:35 AM EDT [facility] Glucose, Arterial 191 65 - 199 mg/dL 11/09/2023 11:35 AM EDT [facility] Comment:Glucose Concentratio n >=200 mg/dL plus symptoms is consistent with Diabetes Mellitus. Blood ARTERIAL BLOOD / Unknown 11/09/2023 11:34 AM EDT 11/09/2023 11:35 AM EDT Timi Person MD POINT OF CARE TEST ORDERABLES [facility] [place] [address] * (ABNORMAL) Phosphorus (11/09/2023 11:33 AM EDT) Phosphorus 2.3(L) 2.5 - 4.5 mg/dL 11/09/2023 12:18 PM EDT [facility] Blood VENOUS BLOOD SPECIMEN / Unknown IP Care Team Draw / Unknown 11/09/2023 11:33 AM EDT 11/09/2023 11:51 AM EDT Calos Lazo MD CHEMISTRY ORDERABLES [facility] [place] [address] * Magnesium (11/09/2023 11:33 AM EDT) Magnesium 0.80 0.69 - 1.07 mMol/L 11/09/2023 12:18 PM EDT [facility] Blood VENOUS BLOOD SPECIMEN / Unknown IP Care Team Draw / Unknown 11/09/2023 11:33 AM EDT 11/09/2023 11:51 AM EDT Calos Lazo MD CHEMISTRY ORDERABLES Performing Organization Address City/Select Specialty [facility] [place]/ZIP Co de Phone Number [facility] [place] [address] * (ABNORMAL) Creatinine (11/09/2023 11:33 AM EDT) Creatinine 1.80(H) 0.80 - 1.50 mg/dL 11/09/2023 12:18 PM EDT [facility] Est Glomerular Filtration Rate - Male 47 mL/min/1. 73 m?? 11/09/2023 12:18 PM EDT [facility] Comment: This patient's estimated GFR [...] Lazo MD CHEMISTRY ORDERABLES Performing Organization Address City/[facility]/ZIP Co de Phone Number [facility] [place] [address] * (ABNORMAL) BUN (11/09/2023 11:33 AM EDT) Blood Urea Nitrogen 34(H) 10 - 20 mg/dL 11/09/2023 12:18 PM EDT [facility] Blood VENOUS BLOOD SPECIMEN / Unknown IP Care Team Draw / Unknown 11/09/2023 11:33 AM EDT 11/09/2023 11:51 AM EDT Calos Lazo MD CHEMISTRY ORDERABLES Performing Organization Address City/[facility] [place]/ZIP Co de Phone Number [facility] [place] [address] * (ABNORMAL) Electrolytes panel (11/09/2023 11:33 AM EDT) Sodium 134(L) 135 - 145 mMol/L 11/09/2023 12:18 PM EDT [facility] Potassium 4.3 3.5 - 5.0 mMol/L 11/09/2023 12:18 PM EDT [facility] Chloride 101 98 - 107 mMol/L 11/09/2023 12:18 PM EDT [facility] Carbon Dioxide 22 22 - 31 mMol/L 11/09/2023 12:18 PM EDT [facility] Anion Gap 11 5 - 15 mMol/L 11/09/2023 12:18 PM EDT [facility] Blood VENOUS BLOOD SPECIMEN / Unknown IP Care Team Draw / Unknown 11/09/2023 11:33 AM EDT 11/09/2023 11:51 AM EDT Calos Lazo MD CHEMISTRY ORDERABLES [facility] [place] [address] * (ABNORMAL) Blood Gas, Arterial POC (11/09/2023 9:05 AM EDT) pH, Arterial 7.44 7.35 - 7.45 11/09/2023 9:08 AM EDT [facility] PCO2, Arterial 33(L) 35 - 45 mmHg 11/09/2023 9:08 AM EDT [facility] PO2, Arterial 105(H) 85 - 104 mmHg 11/09/2023 9:08 AM EDT [facility] Bicarbonate, Arterial 22.0 20.0 - 26.0 mmol/L 11/09/2023 9:08 AM EDT [facility] Base Excess, Arterial -2.2 -3.0 - 3.0 mmol/L 11/09/2023 9:08 AM EDT [facility] Hemoglobin, Arterial 9.9(L) 13.7 - 16.5 g/dL 11/09/2023 9:08 AM EDT [facility] Oxyhemoglobin, Arterial 97.1(H) 94.0 - 97.0 % 11/09/2023 9:08 AM EDT [facility] Carboxyhemoglobin , Arterial 0.3 % 11/09/2023 9:08 AM EDT [facility] Comment: Nonsmokers: 0.5-1.5% COHB ?? Smokers: Variable ??but usually less than 10% ?? Toxic: 20-30% COHB ?? Lethal: Greater than 60% COHB Methemoglobin, Arterial 0.3 <=1.5 % 11/09/2023 9:08 AM EDT [facility] Sodium, Arterial 135 135 - 145 mmol/L 11/09/2023 9:08 AM EDT [facility] Potassium, Arterial 4.0 3.5 - 5.0 mmol/L 11/09/2023 9:08 AM EDT [facility] Chloride, Arterial 105 98 - 107 mmol/L 11/09/2023 9:08 AM EDT [facility] Lactate, Arterial 0.8 0.5 - 2.2 mmol/L 11/09/2023 9:08 AM EDT [facility] Fraction of Inspired Oxygen 50 % 11/09/2023 9:08 AM EDT [facility] PF Ratio 210 Ratio 11/09/2023 9:08 AM EDT [facility] Comment:PF ratio calculated using the non-temperature corrected pO2 result. IONIZED CALCIUM, ARTERIAL 1.17 1.15 - 1.33 mmol/L 11/09/2023 9:08 AM EDT [facility] Glucose, Arterial 185 65 - 199 mg/dL 11/09/2023 9:08 AM EDT [facility] Comment:Glucose Concentratio n >=200 mg/dL plus symptoms is consistent with Diabetes Mellitus. Blood ARTERIAL BLOOD / Unknown 11/09/2023 9:05 AM EDT 11/09/2023 9:08 AM EDT Timi Person MD POINT OF CARE TEST ORDERABLES [facility] [place] [address] * (ABNORMAL) Blood Gas, Arterial POC (11/09/2023 7:47 AM EDT) pH, Arterial 7.42 7.35 - 7.45 11/09/2023 8:28 AM EDT [facility] PCO2, Arterial 37 35 - 45 mmHg 11/09/2023 8:28 AM EDT [facility] PO2, Arterial 89 85 - 104 mmHg 11/09/2023 8:28 AM EDT [facility] Bicarbonate, Arterial 23.4 20.0 - 26.0 mmol/L 11/09/2023 8:28 AM EDT [facility] Base Excess, Arterial -1.2 -3.0 - 3.0 mmol/L 11/09/2023 8:28 AM [facility] Hemoglobin, Arterial 11.0(L) 13.7 - 16.5 g/dL 11/09/2023 8:28 AM [facility] Oxyhemoglobin, Arterial 96.2 94.0 - 97.0 % 11/09/2023 8:28 AM [facility] Carboxyhemoglobin , Arterial 0.2 % 11/09/2023 8:28 AM [facility] Comment: Nonsmokers: 0.5-1.5% COHB ?? Smokers: Variable ??but usually less than 10% ?? Toxic: 20-30% COHB ?? Lethal: Greater than 60% COHB Methemoglobin, Arterial 0.3 <=1.5 % 11/09/2023 8:28 AM [facility] Sodium, Arterial 136 135 - 145 mmol/L 11/09/2023 8:28 AM [facility] Potassium, Arterial 4.2 3.5 - 5.0 mmol/L 11/09/2023 8:28 AM [facility] Chloride, Arterial 104 98 - 107 mmol/L 11/09/2023 8:28 AM [facility] Lactate, Arterial 0.7 0.5 - 2.2 mmol/L 11/09/2023 8:28 AM [facility] Fraction of Inspired Oxygen 50 % 11/09/2023 8:28 AM [facility] PF Ratio 178 Ratio 11/09/2023 8:28 AM [facility] Comment:PF ratio calculated using the non-temperature corrected pO2 result. IONIZED CALCIUM, ARTERIAL 1.19 1.15 - 1.33 mmol/L 11/09/2023 8:28 AM [facility] Glucose, Arterial 168 65 - 199 mg/dL 11/09/2023 8:28 AM [facility] Comment:Glucose Concentratio n >=200 mg/dL plus symptoms is consistent with Diabetes Mellitus. Blood ARTERIAL BLOOD / Unknown 11/09/2023 7:47 AM EDT 11/09/2023 8:28 AM EDT Timi Person MD POINT OF CARE TEST ORDERABLES [facility] [place] [address] * (ABNORMAL) Blood Gas, Arterial POC (11/09/2023 6:24 AM EDT) pH, Arterial 7.39 7.35 - 7.45 11/09/2023 6:26 AM EDT [facility] PCO2, Arterial 39 35 - 45 mmHg 11/09/2023 6:26 AM EDT [facility] PO2, Arterial 100 85 - 104 mmHg 11/09/2023 6:26 AM EDT [facility] Bicarbonate, Arterial 23.2 20.0 - 26.0 mmol/L 11/09/2023 6:26 AM EDT [facility] Base Excess, Arterial -1.7 -3.0 - 3.0 mmol/L 11/09/2023 6:26 AM EDT [facility] Hemoglobin, Arterial 10.1(L) 13.7 - 16.5 g/dL 11/09/2023 6:26 AM EDT [facility] Oxyhemoglobin, Arterial 96.9 94.0 - 97.0 % 11/09/2023 6:26 AM EDT [facility] Carboxyhemoglobin , Arterial 0.1 % 11/09/2023 6:26 AM EDT [facility] Comment: Nonsmokers: 0.5-1.5% COHB ?? Smokers: Variable ??but usually less than 10% ?? Toxic: 20-30% COHB ?? Lethal: Greater than 60% COHB Methemoglobin, Arterial 0.3 <=1.5 % 11/09/2023 6:26 AM EDT [facility] Sodium, Arterial 136 135 - 145 mmol/L 11/09/2023 6:26 AM EDT [facility] Potassium, Arterial 4.0 3.5 - 5.0 mmol/L 11/09/2023 6:26 AM EDT [facility] Chloride, Arterial 106 98 - 107 mmol/L 11/09/2023 6:26 AM EDT [facility] Lactate, Arterial 0.7 0.5 - 2.2 mmol/L 11/09/2023 6:26 AM EDT [facility] IONIZED CALCIUM, ARTERIAL 1.19 1.15 - 1.33 mmol/L 11/09/2023 6:26 AM EDT [facility] Glucose, Arterial 167 65 - 199 mg/dL 11/09/2023 6:26 AM EDT [facility] Comment:Glucose Concentratio n >=200 mg/dL plus symptoms is consistent with Diabetes Mellitus. Blood ARTERIAL BLOOD / Unknown 11/09/2023 6:24 AM EDT 11/09/2023 6:26 AM EDT Timi Person MD POINT OF CARE TEST ORDERABLES [facility] [place] [address] * POC, GLUCOSE (11/09/2023 4:14 AM EDT) Glucometer, POC 152 65 - 199 mg/dL 11/09/2023 4:24 AM EDT [facility] Comment:Supplemental ranges: <140 mg/dL before meals <180 mg/dL all other times of the day. Blood CAPILLARY BLOOD / Unknown 11/09/2023 4:14 AM EDT 11/09/2023 4:24 AM EDT Timi Person MD POINT OF CARE TEST ORDERABLES [facility] [place] [address] * (ABNORMAL) Blood Gas, Arterial POC (11/09/2023 12:19 AM EDT) [facility] pH, Arterial 7.41 7.35 - 7.45 11/09/2023 12:20 AM [facility] PCO2, Arterial 36 35 - 45 mmHg 11/09/2023 12:20 AM [facility] PO2, Arterial 85 85 - 104 mmHg 11/09/2023 12:20 AM [facility] Bicarbonate, Arterial 22.2 20.0 - 26.0 mmol/L 11/09/2023 12:20 AM [facility] Base Excess, Arterial -2.5 -3.0 - 3.0 mmol/L 11/09/2023 12:20 AM [facility] Hemoglobin, Arterial 10.0(L) 13.7 - 16.5 g/dL 11/09/2023 12:20 AM [facility] Oxyhemoglobin, Arterial 95.4 94.0 - 97.0 % 11/09/2023 12:20 AM [facility] Carboxyhemoglobin , Arterial 0.3 % 11/09/2023 12:20 AM [facility] Comment: Nonsmokers: 0.5-1.5% COHB ?? Smokers: Variable ??but usually less than 10% ?? Toxic: 20-30% COHB ?? Lethal: Greater than 60% COHB Methemoglobin, Arterial 0.3 <=1.5 % 11/09/2023 12:20 AM [facility] Sodium, Arterial 135 135 - 145 mmol/L 11/09/2023 12:20 AM [facility] Potassium, Arterial 4.2 3.5 - 5.0 mmol/L 11/09/2023 12:20 AM [facility] Chloride, Arterial 103 98 - 107 mmol/L 11/09/2023 12:20 AM [facility] Lactate, Arterial 0.8 0.5 - 2.2 mmol/L 11/09/2023 12:20 AM [facility] IONIZED CALCIUM, ARTERIAL 1.21 1.15 - 1.33 mmol/L 11/09/2023 12:20 AM EDT [facility] Glucose, Arterial 234(H) 65 - 199 mg/dL 11/09/2023 12:20 AM EDT [facility] Comment:Glucose Concentratio n >=200 mg/dL plus symptoms is consistent with Diabetes Mellitus. Blood ARTERIAL BLOOD / Unknown 11/09/2023 12:19 AM EDT 11/09/2023 12:20 AM EDT Timi Person MD POINT OF CARE TEST ORDERABLES [facility] [place] [address] * (ABNORMAL) CBC (with Diff) (11/09/2023 12:16 AM EDT) White Blood Cell 18.26(H) 4.00 - 9.50 x10(3)/mc L 11/09/2023 12:45 AM EDT [facility] Red Blood Cell 4.10(L) 4.58 - 5.54 x10(6)/mc L 11/09/2023 12:45 AM [facility] Hemoglobin 8.9(L) 13.7 - 16.5 g/dL 11/09/2023 12:45 AM [facility] Hematocrit 28.7(L) 40.5 - 48.5 % 11/09/2023 12:45 AM [facility] Mean Cell Volume 70.0(L) 82.9 - 93.1 fL 11/09/2023 12:[facility] Mean Cell Hemoglobin 21.7(L) 27.5 - 32.1 pg 11/09/2023 12:45 AM [facility] Mean Cell Hemoglobin Concentration 31.0(L) 32.0 - 35.7 g/dL 11/09/2023 12:45 AM [facility] Platelet 273 145 - 357 x10(3)/mc L 11/09/2023 12:45 AM [facility] Mean Platelet Volume 10.4 7.6 - 12.9 fL 11/09/2023 12:45 AM [facility] RDW Standard Deviation 52.7(H) 36.0 - 45.0 fL 11/09/2023 12:45 AM [facility] RDW coefficient of variation 21.4(H) 11.4 - 13.8 % 11/09/2023 12:45 AM [facility] NRBC% auto 0.2 % 11/09/2023 12:45 AM [facility] NRBC Absolute 0.03(H) 0.00 - 0.00 x10(3)/mc L 11/09/2023 12:45 AM [facility] Neutrophil % 87.2 % 11/09/2023 12:45 AM [facility] Neutrophil Absolute (ANC) - Automated 15.92(H) 1.70 - 6.10 x10(3)/mc L 11/09/2023 12:45 AM [facility] Lymph % 5.9 % 11/09/2023 12:45 AM [facility] Lymph Absolute 1.08 0.90 - 3.20 x10(3)/mc L 11/09/2023 12:45 AM [facility] Monocyte % 2.1 % 11/09/2023 12:45 AM [facility] Monocyte Absolute 0.38 0.30 - 0.90 x10(3)/mc L 11/09/2023 12:45 AM [facility] Eos % 2.2 % 11/09/2023 12:45 AM [facility] Eos Absolute 0.41(H) 0.00 - 0.40 x10(3)/mc L 11/09/2023 12:45 AM [facility] Basophil % 0.2 % 11/09/2023 12:45 AM [facility] Baso Absolute 0.04 0.00 - 0.10 x10(3)/mc L 11/09/2023 12:45 AM EDT [facility] Immature Gran % 2.4 % 12:45 AM EDT [facility] Immature Gran Absolute 0.43(H) 0.00 - 0.04 x10(3)/mc L 11/09/2023 12:45 AM EDT [facility] Blood VENOUS BLOOD SPECIMEN / Unknown IP Care Team Draw / Unknown 11/09/2023 12:16 AM EDT 11/09/2023 12:39 AM EDT Timi Person MD HEMATOLOGY ORDERABL ES [facility] [place] [address] * (ABNORMAL) Basic Metabolic Panel (11/09/2023 12:16 AM EDT) Glucose 240(H) 65 - 199 mg/dL 11/09/2023 1:10 AM EDT [facility] Comment:Glucose Concentratio n >=200 mg/dL plus symptoms is consistent with Diabetes Mellitus. Blood Urea Nitrogen 41(H) 10 - 20 mg/dL 11/09/2023 1:10 AM EDT [facility] Creatinine 2.36(H) 0.80 - 1.50 mg/dL 11/09/2023 1:10 AM EDT [facility] Sodium 134(L) 135 - 145 mMol/L 11/09/2023 1:10 AM EDT [facility] Potassium 4.2 3.5 - 5.0 mMol/L 11/09/2023 1:10 AM EDT [facility] Chloride 102 98 - 107 mMol/L 11/09/2023 1:10 AM EDT [facility] Carbon Dioxide 23 22 - 31 mMol/L 11/09/2023 1:10 AM EDT [facility] Anion Gap 9 5 - 15 mMol/L 11/09/2023 1:10 AM EDT [facility] Calcium 8.7 8.5 - 10.5 mg/dL 11/09/2023 1:10 AM EDT [facility] Est Glomerular Filtration Rate - Male 34 mL/min/1. 73 m?? 11/09/2023 1:10 AM EDT [facility] Comment: This patient's estimated GFR [...] IP Care Team Draw / Unknown 11/09/2023 12:16 AM EDT 11/09/2023 12:39 AM EDT Timi Person MD CHEMISTRY ORDERABLE S [facility] [place] [address] * Phosphorus (11/09/2023 12:16 AM EDT) Phosphorus 2.8 2.5 - 4.5 mg/dL 11/09/2023 1:10 AM EDT [facility] Blood VENOUS BLOOD SPECIMEN / Unknown IP Care Team Draw / Unknown 11/09/2023 12:16 AM EDT 11/09/2023 12:39 AM EDT Timi Person MD CHEMISTRY ORDERABLE S [facility] [place] [address] * Magnesium (11/09/2023 12:16 AM EDT) [facility] Magnesium 0.84 0.69 - 1.07 mMol/L 11/09/2023 1:10 AM EDT [facility] Blood VENOUS BLOOD SPECIMEN / Unknown IP Care Team Draw / Unknown 11/09/2023 12:16 AM EDT 11/09/2023 12:39 AM EDT Timi Person MD CHEMISTRY ORDERABLE S [facility] [place] [address] * (ABNORMAL) Blood Gas, Arterial POC (11/08/2023 8:39 PM EDT) [facility] pH, Arterial 7.42 7.35 - 7.45 11/08/2023 8:40 PM EDT [facility] PCO2, Arterial 37 35 - 45 mmHg 11/08/2023 8:40 PM EDT [facility] PO2, Arterial 76(L) 85 - 104 mmHg 11/08/2023 8:40 PM EDT [facility] Bicarbonate, Arterial 23.5 20.0 - 26.0 mmol/L 11/08/2023 8:40 PM EDT [facility] Base Excess, Arterial -0.9 -3.0 - 3.0 mmol/L 11/08/2023 8:40 PM EDT [facility] Hemoglobin, Arterial 10.4(L) 13.7 - 16.5 g/dL 11/08/2023 8:40 PM EDT [facility] Oxyhemoglobin, Arterial 94.2 94.0 - 97.0 % 11/08/2023 8:40 PM EDT [facility] Carboxyhemoglobin , Arterial 0.1 % 11/08/2023 8:40 PM EDT [facility] Comment: Nonsmokers: 0.5-1.5% COHB ?? Smokers: Variable ??but usually less than 10% ?? Toxic: 20-30% COHB ?? Lethal: Greater than 60% COHB Methemoglobin, Arterial 0.3 <=1.5 % 11/08/2023 8:40 PM EDT [facility] Sodium, Arterial 136 135 - 145 mmol/L 11/08/2023 8:40 PM EDT [facility] Potassium, Arterial 4.2 3.5 - 5.0 mmol/L 11/08/2023 8:40 PM EDT [facility] Chloride, Arterial 104 98 - 107 mmol/L 11/08/2023 8:40 PM EDT [facility] Lactate, Arterial 0.7 0.5 - 2.2 mmol/L 11/08/2023 8:40 PM EDT [facility] IONIZED CALCIUM, ARTERIAL 1.18 1.15 - 1.33 mmol/L 11/08/2023 8:40 PM EDT [facility] Glucose, Arterial 241(H) 65 - 199 mg/dL 11/08/2023 8:40 PM EDT [facility] Comment:Glucose Concentratio n >=200 mg/dL plus symptoms is consistent with Diabetes Mellitus. Blood ARTERIAL BLOOD / Unknown 11/08/2023 8:39 PM EDT 11/08/2023 8:40 PM EDT Timi Person MD POINT OF CARE TEST ORDERABLES [facility] [place] [address] * (ABNORMAL) Blood Gas, Arterial POC (11/08/2023 6:13 PM EDT) pH, Arterial 7.44 7.35 - 7.45 11/08/2023 6:14 PM EDT [facility] PCO2, Arterial 28(L) 35 - 45 mmHg 11/08/2023 6:14 PM EDT [facility] PO2, Arterial 83(L) 85 - 104 mmHg 11/08/2023 6:14 PM EDT [facility] Bicarbonate, Arterial 18.7(L) 20.0 - 26.0 mmol/L 11/08/2023 6:14 PM [facility] Base Excess, Arterial -5.5(L) -3.0 - 3.0 mmol/L 11/08/2023 6:14 PM [facility] Hemoglobin, Arterial 10.4(L) 13.7 - 16.5 g/dL 11/08/2023 6:14 PM [facility] Oxyhemoglobin, Arterial 95.4 94.0 - 97.0 % 11/08/2023 6:14 PM [facility] Carboxyhemoglobin , Arterial 0.2 % 11/08/2023 6:14 PM [facility] Comment: Nonsmokers: 0.5-1.5% COHB ?? Smokers: Variable ??but usually less than 10% ?? Toxic: 20-30% COHB ?? Lethal: Greater than 60% COHB Methemoglobin, Arterial 0.3 <=1.5 % 11/08/2023 6:14 PM [facility] Sodium, Arterial 136 135 - 145 mmol/L 11/08/2023 6:14 PM [facility] Potassium, Arterial 3.4(L) 3.5 - 5.0 mmol/L 11/08/2023 6:14 PM [facility] Chloride, Arterial 110(H) 98 - 107 mmol/L 11/08/2023 6:14 PM [facility] Lactate, Arterial 0.7 0.5 - 2.2 mmol/L 11/08/2023 6:14 PM [facility] Fraction of Inspired Oxygen 50 % 11/08/2023 6:14 PM [facility] PF Ratio 166 Ratio 11/08/2023 6:14 PM [facility] Comment:PF ratio calculated using the non-temperature corrected pO2 result. IONIZED CALCIUM, ARTERIAL 1.08(L) 1.15 - 1.33 mmol/L 11/08/2023 6:14 PM [facility] Glucose, Arterial 223(H) 65 - 199 mg/dL 11/08/2023 6:14 PM EDT [facility] Comment:Glucose Concentratio n >=200 mg/dL plus symptoms is consistent with Diabetes Mellitus. Blood ARTERIAL BLOOD / Unknown 11/08/2023 6:13 PM EDT 11/08/2023 6:14 PM EDT Timi Person MD POINT OF CARE TEST ORDERABLES Performing Organization Address [facility] Co de Phone Number [facility] [place] [address] * (ABNORMAL) POC, GLUCOSE (11/08/2023 3:54 PM EDT) Glucometer, POC 228(H) 65 - 199 mg/dL 11/08/2023 3:54 PM EDT [facility] Comment:Supplemental ranges: <140 mg/dL before meals <180 mg/dL all other times of the day. Blood CAPILLARY BLOOD / Unknown 11/08/2023 3:54 PM EDT 11/08/2023 3:54 PM EDT Timi Person MD POINT OF CARE TEST ORDERABLES Performing Organization Address [facility] Co de Phone Number [facility] [place] [address] * (ABNORMAL) Blood Gas, Arterial POC (11/08/2023 1:11 PM EDT) pH, Arterial 7.40 7.35 - 7.45 11/08/2023 1:12 PM EDT [facility] PCO2, Arterial 36 35 - 45 mmHg 11/08/2023 1:12 PM EDT [facility] PO2, Arterial 115(H) 85 - 104 mmHg 11/08/2023 1:12 PM EDT [facility] Bicarbonate, Arterial 21.8 20.0 - 26.0 mmol/L 11/08/2023 1:12 PM EDT [facility] Base Excess, Arterial -2.9 -3.0 - 3.0 mmol/L 11/08/2023 1:12 PM [facility] Hemoglobin, Arterial 10.3(L) 13.7 - 16.5 g/dL 11/08/2023 1:12 PM [facility] Oxyhemoglobin, Arterial 97.3(H) 94.0 - 97.0 % 11/08/2023 1:12 PM [facility] Carboxyhemoglobin , Arterial 0.3 % 11/08/2023 1:12 PM [facility] Comment: Nonsmokers: 0.5-1.5% COHB ?? Smokers: Variable ??but usually less than 10% ?? Toxic: 20-30% COHB ?? Lethal: Greater than 60% COHB Methemoglobin, Arterial 0.3 <=1.5 % 11/08/2023 1:12 PM [facility] Sodium, Arterial 136 135 - 145 mmol/L 11/08/2023 1:12 PM [facility] Potassium, Arterial 4.0 3.5 - 5.0 mmol/L 11/08/2023 1:12 PM [facility] Chloride, Arterial 106 98 - 107 mmol/L 11/08/2023 1:12 PM [facility] Lactate, Arterial 0.8 0.5 - 2.2 mmol/L 11/08/2023 1:12 PM [facility] Fraction of Inspired Oxygen 50 % 11/08/2023 1:12 PM [facility] PF Ratio 230 Ratio 11/08/2023 1:12 PM [facility] Comment:PF ratio calculated using the non-temperature corrected pO2 result. IONIZED CALCIUM, ARTERIAL 1.16 1.15 - 1.33 mmol/L 11/08/2023 1:12 PM [facility] Glucose, Arterial 250(H) 65 - 199 mg/dL 11/08/2023 1:12 PM [facility] Comment:Glucose Concentratio n >=200 mg/dL plus symptoms is consistent with Diabetes Mellitus. Blood ARTERIAL BLOOD / Unknown 11/08/2023 1:11 PM EDT 11/08/2023 1:12 PM EDT Timi Person MD POINT OF CARE TEST ORDERABLES Performing Organization Address City/[facility]/ZIP Co de Phone Number [facility] [place] [address] * Phosphorus (11/08/2023 11:53 AM EDT) Phosphorus 3.1 2.5 - 4.5 mg/dL 11/08/2023 12:58 PM EDT [facility] Blood ARTERIAL BLOOD / Unknown IP Care Team Draw / Unknown 11/08/2023 11:53 AM EDT 11/08/2023 12:18 PM EDT Calos Lazo MD CHEMISTRY ORDERABLES Performing Organization Address City/[facility] Co de Phone Number [facility] [place] [address] * Magnesium (11/08/2023 11:53 AM EDT) Magnesium 0.85 0.69 - 1.07 mMol/L 11/08/2023 12:58 PM EDT [facility] Blood ARTERIAL BLOOD / Unknown IP Care Team Draw / Unknown 11/08/2023 11:53 AM EDT 11/08/2023 12:18 PM EDT Calos Lazo MD CHEMISTRY ORDERABLES Performing Organization Address City/[facility] Co de Phone Number [facility] [place] [address] * (ABNORMAL) Creatinine (11/08/2023 11:53 AM EDT) Creatinine 2.82(H) 0.80 - 1.50 mg/dL 11/08/2023 12:58 PM EDT [facility] Est Glomerular Filtration Rate - Male 27 mL/min/1. 73 m?? 11/08/2023 12:58 PM EDT [facility] Comment: This patient's estimated GFR [...] Link: eGFR Calculator [employer] Blood ARTERIAL BLOOD / Unknown IP Care Team Draw / Unknown 11/08/2023 11:53 AM EDT 11/08/2023 12:18 PM EDT Calos Lazo MD CHEMISTRY ORDERABLES Performing Organization Address City/[facility]/ZIP Co de Phone Number [facility] [place] [address] * (ABNORMAL) BUN (11/08/2023 11:53 AM EDT) Blood Urea Nitrogen 53(H) 10 - 20 mg/dL 11/08/2023 12:58 PM EDT [facility] Blood ARTERIAL BLOOD / Unknown IP Care Team Draw / Unknown 11/08/2023 11:53 AM EDT 11/08/2023 12:18 PM EDT Calos Lazo MD CHEMISTRY ORDERABLES [facility] [place] [address] * Electrolytes panel (11/08/2023 11:53 AM EDT) Sodium 139 135 - 145 mMol/L 11/08/2023 12:58 PM EDT [facility] Potassium 4.3 3.5 - 5.0 mMol/L 11/08/2023 12:58 PM EDT [facility] Chloride 105 98 - 107 mMol/L 11/08/2023 12:58 PM EDT [facility] Carbon Dioxide 22 22 - 31 mMol/L 11/08/2023 12:58 PM EDT [facility] Anion Gap 12 5 - 15 mMol/L 11/08/2023 12:58 PM EDT [facility] Blood ARTERIAL BLOOD / Unknown IP Care Team Draw / Unknown 11/08/2023 11:53 AM EDT 11/08/2023 12:18 PM EDT Calos Lazo MD CHEMISTRY ORDERABLES [facility] [address] [place] [address] * (ABNORMAL) Blood Gas, Arterial POC (11/08/2023 11:52 AM EDT) pH, Arterial 7.41 7.35 - 7.45 11/08/2023 11:53 AM EDT [facility] PCO2, Arterial 39 35 - 45 mmHg 11/08/2023 11:53 AM [facility] PO2, Arterial 111(H) 85 - 104 mmHg 11/08/2023 11:53 AM T [facility] Bicarbonate, Arterial 24.1 20.0 - 26.0 mmol/L 11/08/2023 11:53 AM [facility] Base Excess, Arterial -0.6 -3.0 - 3.0 mmol/L 11/08/2023 11:53 AM EDT [facility] Hemoglobin, Arterial 10.7(L) 13.7 - 16.5 g/dL 11/08/2023 11:53 AM [facility] Oxyhemoglobin, Arterial 97.5(H) 94.0 - 97.0 % 11/08/2023 11:53 AM [facility] Carboxyhemoglobin , Arterial 0.1 % 11/08/2023 11:53 AM [facility] Comment: Nonsmokers: 0.5-1.5% COHB ?? Smokers: Variable ??but usually less than 10% ?? Toxic: 20-30% COHB ?? Lethal: Greater than 60% COHB Methemoglobin, Arterial 0.3 <=1.5 % 11/08/2023 11:53 AM EDT [facility] Sodium, Arterial 137 135 - 145 mmol/L 11/08/2023 11:53 AM EDT [facility] Potassium, Arterial 4.4 3.5 - 5.0 mmol/L 11/08/2023 11:53 AM EDT [facility] Chloride, Arterial 105 98 - 107 mmol/L 11/08/2023 11:53 [facility] Lactate, Arterial 0.9 0.5 - 2.2 mmol/L 11/08/2023 11:53 AM [facility] Fraction of Inspired Oxygen 50 % 11/08/2023 11:53 AM [facility] PF Ratio 222 Ratio 11/08/2023 11:53 AM EDT [facility] Comment:PF ratio calculated using the non-temperature corrected pO2 result. IONIZED CALCIUM, ARTERIAL 1.20 1.15 - 1.33 mmol/L 11/08/2023 11:53 AM EDT [facility] Glucose, Arterial 235(H) 65 - 199 mg/dL 11/08/2023 11:53 AM EDT [facility] Comment:Glucose Concentratio n >=200 mg/dL plus symptoms is consistent with Diabetes Mellitus. Blood ARTERIAL BLOOD / Unknown 11/08/2023 11:52 AM EDT 11/08/2023 11:53 AM EDT Timi Person MD POINT OF CARE TEST ORDERABLES [facility] [place] [address] * (ABNORMAL) POC, GLUCOSE (11/08/2023 11:07 AM EDT) [facility] Signature Glucometer, POC 211(H) 65 - 199 mg/dL 11/08/2023 11:09 AM EDT [facility] Comment:Supplemental ranges: <140 mg/dL before meals <180 mg/dL all other times of the day. Blood CAPILLARY BLOOD / Unknown 11/08/2023 11:07 AM EDT 11/08/2023 11:09 AM EDT Timi Person MD POINT OF CARE TEST ORDERABLES [facility] [place] [address] * (ABNORMAL) Blood Gas, Arterial POC (11/08/2023 9:10 AM EDT) pH, Arterial 7.41 7.35 - 7.45 11/08/2023 9:[facility] AM [facility] PCO2, Arterial 34(L) 35 - 45 mmHg 11/08/2023 9:12 AM [facility] PO2, Arterial 133(H) 85 - 104 mmHg 11/08/2023 9:12 AM [facility] Bicarbonate, Arterial 21.0 20.0 - 26.0 mmol/L 11/08/2023 9:12 AM [facility] Base Excess, Arterial -3.6(L) -3.0 - 3.0 mmol/L 11/08/2023 9:12 AM [facility] Hemoglobin, Arterial 10.4(L) 13.7 - 16.5 g/dL 11/08/2023 9:12 AM [facility] Oxyhemoglobin, Arterial 97.6(H) 94.0 - 97.0 % 11/08/2023 9:12 AM [facility] Carboxyhemoglobin , Arterial 0.2 % 11/08/2023 9:12 AM [facility] Comment: Nonsmokers: 0.5-1.5% COHB ?? Smokers: Variable ??but usually less than 10% ?? Toxic: 20-30% COHB ?? Lethal: Greater than 60% COHB Methemoglobin, Arterial 0.1 <=1.5 % 11/08/2023 9:12 AM EDT [facility] Sodium, Arterial 139 135 - 145 mmol/L 11/08/2023 9:12 AM EDT [facility] Potassium, Arterial 4.1 3.5 - 5.0 mmol/L 11/08/2023 9:12 AM EDT [facility] Chloride, Arterial 109(H) 98 - 107 mmol/L 11/08/2023 9:12 AM EDT [facility] Lactate, Arterial 0.8 0.5 - 2.2 mmol/L 11/08/2023 9:12 AM EDT [facility] Fraction of Inspired Oxygen 60 % 11/08/2023 9:12 AM EDT [facility] PF Ratio 222 Ratio 11/08/2023 9:12 AM EDT [facility] Comment:PF ratio calculated using the non-temperature corrected pO2 result. IONIZED CALCIUM, ARTERIAL 1.12(L) 1.15 - 1.33 mmol/L 11/08/2023 9:12 AM EDT [facility] Glucose, Arterial 202(H) 65 - 199 mg/dL 11/08/2023 9:12 AM EDT [facility] Comment:Glucose Concentratio n >=200 mg/dL plus symptoms is consistent with Diabetes Mellitus. Blood ARTERIAL BLOOD / Unknown 11/08/2023 9:10 AM EDT 11/08/2023 9:11 AM EDT Timi Person MD POINT OF CARE TEST ORDERABLES [facility] [place] [address] * XR Chest One View (11/08/2023 8:25 AM EDT) WORKSTATION ID [id number] DH RAD Anatomical Region Laterality Modality Chest N/A Digital Radiogra phy Impressions 11/08/2023 12:04 PM EDT 1. ??ET tube tip 3.5 cm above the steve. 2. ??Lung base opacities, decreased. This could be pneumonia or atelectasis. Thank you for letting us participate in the care of this patient. ??If you are a health care provider and have any questions regarding this report, please contact the number below. ??For patients who have questions please contact the health personal care assistant that requested your imaging first. ? Narrative 11/08/2023 12:04 PM EDT EXAMINATION: XR CHEST ONE VIEW CLINICAL HISTORY: intubated TECHNIQUE: 1 view of the chest COMPARISON: Chest x-ray, 11/05/2023 FINDINGS: The ET tube tip is 3.5 cm above the steve. A right IJ central venous catheter tip projects over the upper right atrium. The feeding tube tip projects over the mid stomach. The cardiac silhouette is slightly enlarged. Mild pulmonary vascular congestion is improved. Lung base opacities noted, left more than right, slightly improved. No pneumothorax or large pleural effusion. Median sternotomy wires identified. Procedure Note Gerald Kaur MD - 11/08/2023 EXAMINATION: XR CHEST ONE VIEW CLINICAL HISTORY: intubated TECHNIQUE: 1 view of the chest COMPARISON: Chest x-ray, 11/05/2023 FINDINGS: The ET tube tip is 3.5 cm above the steve. A right IJ central venouscatheter tip projects over the upper right atrium. The feeding tube tip projectsover the mid stomach. The cardiac silhouette is slightly enlarged. Mild pulmonary vascularcongestion is improved. Lung base opacities noted, left more than right, slightly improved. No pneumothorax or large pleural effusion. Median sternotomy wires identified. IMPRESSION 1. ET tube tip 3.5 cm above the steve. 2. Lung base opacities, decreased. This could be pneumonia oratelectasis. Thank you for letting us participate in the care of this patient. If youare a health care provider and have any questions regarding this report,please contact the number below. For patients who have questions please contactthe health personal care assistant that requested your imaging first. Aby Clay [facility] DX ORDERABLES * POC, GLUCOSE (11/08/2023 7:40 AM EDT) Glucometer, POC 165 65 - 199 mg/dL 11/08/2023 7:41 AM EDT [facility] Comment:Supplemental ranges: <140 mg/dL before meals <180 mg/dL all other times of the day. Blood CAPILLARY BLOOD / Unknown 11/08/2023 7:40 AM EDT 11/08/2023 7:41 AM EDT Timi Person MD POINT OF CARE TEST ORDERABLES [facility] [place] [address] * (ABNORMAL) Blood Gas, Arterial POC (11/08/2023 5:54 AM EDT) pH, Arterial 7.41 7.35 - 7.45 11/08/2023 5:55 AM EDT [facility] PCO2, Arterial 37 35 - 45 mmHg 11/08/2023 5:55 AM EDT [facility] PO2, Arterial 83(L) 85 - 104 mmHg 11/08/2023 5:55 AM EDT [facility] Bicarbonate, Arterial 22.9 20.0 - 26.0 mmol/L 11/08/2023 5:55 AM EDT [facility] Base Excess, Arterial -1.7 -3.0 - 3.0 mmol/L 11/08/2023 5:55 AM [facility] Hemoglobin, Arterial 11.2(L) 13.7 - 16.5 g/dL 11/08/2023 5:55 AM [facility] Oxyhemoglobin, Arterial 94.8 94.0 - 97.0 % 11/08/2023 5:55 AM [facility] Carboxyhemoglobin , Arterial 0.3 % 11/08/2023 5:55 AM [facility] Comment: Nonsmokers: 0.5-1.5% COHB ?? Smokers: Variable ??but usually less than 10% ?? Toxic: 20-30% COHB ?? Lethal: Greater than 60% COHB Methemoglobin, Arterial 0.3 <=1.5 % 11/08/2023 5:55 AM [facility] Sodium, Arterial 139 135 - 145 mmol/L 11/08/2023 5:55 AM [facility] Potassium, Arterial 4.2 3.5 - 5.0 mmol/L 11/08/2023 5:55 AM [facility] Chloride, Arterial 106 98 - 107 mmol/L 11/08/2023 5:55 AM [facility] Lactate, Arterial 0.8 0.5 - 2.2 mmol/L 11/08/2023 5:55 AM [facility] Fraction of Inspired Oxygen 60 % 11/08/2023 5:55 AM [facility] PF Ratio 138 Ratio 11/08/2023 5:55 AM [facility] Comment:PF ratio calculated using the non-temperature corrected pO2 result. IONIZED CALCIUM, ARTERIAL 1.19 1.15 - 1.33 mmol/L 11/08/2023 5:55 AM [facility] Glucose, Arterial 182 65 - 199 mg/dL 11/08/2023 5:55 AM [facility] Comment:Glucose Concentratio n >=200 mg/dL plus symptoms is consistent with Diabetes Mellitus. Blood ARTERIAL BLOOD / Unknown 11/08/2023 5:54 AM EDT 11/08/2023 5:55 AM EDT Timi Person MD POINT OF CARE TEST ORDERABLES [facility] [place] [address] * (ABNORMAL) Electrolytes panel (11/08/2023 5:52 AM EDT) Sodium 142 135 - 145 mMol/L 11/08/2023 6:24 AM EDT [facility] Potassium 3.4(L) 3.5 - 5.0 mMol/L 11/08/2023 6:24 AM EDT [facility] Chloride 112(H) 98 - 107 mMol/L 11/08/2023 6:24 AM EDT [facility] Carbon Dioxide 18(L) 22 - 31 mMol/L 11/08/2023 6:24 AM EDT [facility] Anion Gap 12 5 - 15 mMol/L 11/08/2023 6:24 AM EDT [facility] Blood VENOUS BLOOD SPECIMEN / Unknown IP Care Team Draw / Unknown 11/08/2023 5:52 AM EDT 11/08/2023 5:58 AM EDT Calos Lzao MD CHEMISTRY ORDERABLES [facility] [place] [address] * POC, GLUCOSE (11/08/2023 4:12 AM EDT) Glucometer, POC 158 65 - 199 mg/dL 11/08/2023 4:12 AM EDT [facility] Comment:Supplemental ranges: <140 mg/dL before meals <180 mg/dL all other times of the day. Blood CAPILLARY BLOOD / Unknown 11/08/2023 4:12 AM EDT 11/08/2023 4:12 AM EDT Timi Person MD POINT OF CARE TEST ORDERABLES [facility] [place] [address] * POC, GLUCOSE (11/08/2023 12:13 AM EDT) Glucometer, POC 191 65 - 199 mg/dL 11/08/2023 12:13 AM EDT [facility] Comment:Supplemental ranges: <140 mg/dL before meals <180 mg/dL all other times of the day. Blood CAPILLARY BLOOD / Unknown 11/08/2023 12:13 AM EDT 11/08/2023 12:13 AM EDT Timi Person MD POINT OF CARE TEST ORDERABLES Performing Organization Address City/[facility] Co de Phone Number [facility] [place] [address] * (ABNORMAL) Blood Gas, Arterial POC (11/08/2023 12:10 AM EDT) pH, Arterial 7.40 7.35 - 7.45 11/08/2023 12:11 AM EDT [facility] PCO2, Arterial 37 35 - 45 mmHg 11/08/2023 12:11 AM EDT [facility] PO2, Arterial 103 85 - 104 mmHg 11/08/2023 12:11 AM EDT [facility] Bicarbonate, Arterial 22.3 20.0 - 26.0 mmol/L 11/08/2023 12:11 AM EDT [facility] Base Excess, Arterial -2.5 -3.0 - 3.0 mmol/L 11/08/2023 12:11 AM EDT [facility] Hemoglobin, Arterial 10.4(L) 13.7 - 16.5 g/dL 11/08/2023 12:11 AM EDT [facility] Oxyhemoglobin, Arterial 96.5 94.0 - 97.0 % 11/08/2023 12:11 AM [facility] Carboxyhemoglobin , Arterial 0.3 % 11/08/2023 12:11 AM [facility] Comment: Nonsmokers: 0.5-1.5% COHB ?? Smokers: Variable ??but usually less than 10% ?? Toxic: 20-30% COHB ?? Lethal: Greater than 60% COHB Methemoglobin, Arterial 0.3 <=1.5 % 11/08/2023 12:11 [facility] Sodium, Arterial 138 135 - 145 mmol/L 11/08/2023 12:11 AM [facility] Potassium, Arterial 4.0 3.5 - 5.0 mmol/L 11/08/2023 12:11 AM [facility] Chloride, Arterial 106 98 - 107 mmol/L 11/08/2023 12:11 AM [facility] Lactate, Arterial 0.7 0.5 - 2.2 mmol/L 11/08/2023 12:11 AM [facility] Fraction of Inspired Oxygen 60 % 11/08/2023 12:11 AM [facility] PF Ratio 172 Ratio 11/08/2023 12:11 AM [facility] Comment:PF ratio calculated using the non-temperature corrected pO2 result. IONIZED CALCIUM, ARTERIAL 1.19 1.15 - 1.33 mmol/L 11/08/2023 12:11 AM [facility] Glucose, Arterial 208(H) 65 - 199 mg/dL 11/08/2023 12:11 AM EDT [facility] Comment:Glucose Concentratio n >=200 mg/dL plus symptoms is consistent with Diabetes Mellitus. Blood ARTERIAL BLOOD / Unknown 11/08/2023 12:10 AM EDT 11/08/2023 12:11 AM EDT Timi Person MD POINT OF CARE TEST ORDERABLES [facility] [place] [address] * (ABNORMAL) CBC (with Diff) (11/08/2023 12:09 AM EDT) White Blood Cell 13.91(H) 4.00 - 9.50 x10(3)/mc L 11/08/2023 12:27 AM [facility] Red Blood Cell 4.14(L) 4.58 - 5.54 x10(6)/mc L 11/08/2023 12:27 AM [facility] Hemoglobin 9.0(L) 13.7 - 16.5 g/dL 11/08/2023 12:27 AM [facility] Hematocrit 28.8(L) 40.5 - 48.5 % 11/08/2023 12:27 AM [facility] Mean Cell Volume 69.6(L) 82.9 - 93.1 fL 11/08/2023 12:27 AM [facility] Mean Cell Hemoglobin 21.7(L) 27.5 - 32.1 pg 11/08/2023 12:27 AM [facility] Mean Cell Hemoglobin Concentration 31.3(L) 32.0 - 35.7 g/dL 11/08/2023 12:27 AM [facility] Platelet 324 145 - 357 x10(3)/mc L 11/08/2023 12:27 AM [facility] Mean Platelet Volume 10.1 7.6 - 12.9 fL 11/08/2023 12:27 AM [facility] RDW Standard Deviation 50.7(H) 36.0 - 45.0 fL 11/08/2023 12:27 AM [facility] RDW coefficient of variation 20.7(H) 11.4 - 13.8 % 11/08/2023 12:27 AM [facility] NRBC% auto 0.2 % 11/08/2023 12:27 AM [facility] NRBC Absolute 0.03(H) 0.00 - 0.00 x10(3)/mc L 11/08/2023 12:27 AM EDT [facility] Neutrophil % 80.7 % 11/08/2023 12:27 AM EDT [facility] Neutrophil Absolute (ANC) - Automated 11.23(H) 1.70 - 6.10 x10(3)/mc L 11/08/2023 12:27 AM EDT [facility] Lymph % 9.2 % 11/08/2023 12:27 AM EDT [facility] Lymph Absolute 1.28 0.90 - 3.20 x10(3)/mc L 11/08/2023 12:27 AM EDT [facility] Monocyte % 4.0 % 11/08/2023 12:27 AM EDT [facility] Monocyte Absolute 0.56 0.30 - 0.90 x10(3)/mc L 11/08/2023 12:27 AM EDT [facility] Eos % 3.2 % 11/08/2023 12:27 AM EDT [facility] Eos Absolute 0.44(H) 0.00 - 0.40 x10(3)/mc L 11/08/2023 12:27 AM EDT [facility] Basophil % 0.4 % 11/08/2023 12:27 AM EDT [facility] Baso Absolute 0.05 0.00 - 0.10 x10(3)/mc L 11/08/2023 12:27 AM EDT [facility] Immature Gran % 2.5 % 12:27 AM EDT [facility] Immature Gran Absolute 0.35(H) 0.00 - 0.04 x10(3)/mc L 11/08/2023 12:27 AM [facility] Blood VENOUS BLOOD SPECIMEN / Unknown IP Care Team Draw / Unknown 11/08/2023 12:09 AM EDT 11/08/2023 12:17 AM EDT Timi Person MD HEMATOLOGY ORDERABL ES [facility] [place] [address] * (ABNORMAL) Basic Metabolic Panel (11/08/2023 12:09 AM EDT) Glucose 199 65 - 199 mg/dL 11/08/2023 1:10 AM EDT [facility] Comment:Glucose Concentratio n >=200 mg/dL plus symptoms is consistent with Diabetes Mellitus. Blood Urea Nitrogen 65(H) 10 - 20 mg/dL 11/08/2023 1:10 AM EDT [facility] Creatinine 3.50(H) 0.80 - 1.50 mg/dL 11/08/2023 1:10 AM EDT [facility] Sodium 142 135 - 145 mMol/L 11/08/2023 1:10 AM EDT [facility] Potassium 3.7 3.5 - 5.0 mMol/L 11/08/2023 1:10 AM EDT [facility] Chloride 108(H) 98 - 107 mMol/L 11/08/2023 1:[facility] Carbon Dioxide 22 22 - 31 mMol/L 11/08/2023 1:10 AM [facility] Anion Gap 12 5 - 15 mMol/L 11/08/2023 1:10 [facility] Calcium 8.2(L) 8.5 - 10.5 mg/dL 11/08/2023 1:10 AM EDT [facility] Est Glomerular Filtration Rate - Male 21 mL/min/1. 73 m?? 11/08/2023 1:10 AM [facility] Comment: This patient's estimated GFR [...] Unknown IP Care Team Draw / Unknown 11/08/2023 12:09 AM EDT 11/08/2023 12:17 AM EDT Timi Person MD CHEMISTRY ORDERABLE S [facility] [place] [address] * Phosphorus (11/08/2023 12:09 AM EDT) Phosphorus 4.4 2.5 - 4.5 mg/dL 11/08/2023 12:47 AM EDT [facility] Blood VENOUS BLOOD SPECIMEN / Unknown IP Care Team Draw / Unknown 11/08/2023 12:09 AM EDT 11/08/2023 12:17 AM EDT Timi Person MD CHEMISTRY ORDERABLE S Performing Organization Address City/[facility]/ZIP Co de Phone Number [facility] [place] [address] * Magnesium (11/08/2023 12:09 AM EDT) Magnesium 0.88 0.69 - 1.07 mMol/L 11/08/2023 12:47 AM EDT [facility] Blood VENOUS BLOOD SPECIMEN / Unknown IP Care Team Draw / Unknown 11/08/2023 12:09 AM EDT 11/08/2023 12:17 AM EDT Timi Person MD CHEMISTRY ORDERABLE S [facility] [place] [address] * Prepare RBC (11/07/2023 10:03 PM EDT) Status Information Transfused [facility] Product Identification RBC [facility] Unit Number [id number] [facility] Product Code [id number] [facility] Unit Blood Type OPOS [facility] Specimen Expiration Date [id number] [facility] Volulme 350 [facility] Issue Date / Time [id number] [facility] Blood 11/07/2023 7:5 1 AM EDT Aby Williamson APRN BLOOD BANK PRODUCT ORDERABLES [facility] [place] [address] * (ABNORMAL) Blood Gas, Arterial POC (11/07/2023 7:57 PM EDT) pH, Arterial 7.41 7.35 - 7.45 11/07/2023 7:58 PM EDT [facility] PCO2, Arterial 37 35 - 45 mmHg 11/07/2023 7:58 PM EDT [facility] PO2, Arterial 112(H) 85 - 104 mmHg 11/07/2023 7:58 PM EDT [facility] Bicarbonate, Arterial 23.0 20.0 - 26.0 mmol/L 11/07/2023 7:58 PM EDT [facility] Base Excess, Arterial -1.6 -3.0 - 3.0 mmol/L 11/07/2023 7:58 PM EDT [facility] Hemoglobin, Arterial 10.2(L) 13.7 - 16.5 g/dL 11/07/2023 7:58 PM EDT [facility] Oxyhemoglobin, Arterial 97.0 94.0 - 97.0 % 11/07/2023 7:58 PM EDT [facility] Carboxyhemoglobin , Arterial 0.3 % 11/07/2023 7:58 PM EDT [facility] Comment: Nonsmokers: 0.5-1.5% COHB ?? Smokers: Variable ??but usually less than 10% ?? Toxic: 20-30% COHB ?? Lethal: Greater than 60% COHB Methemoglobin, Arterial 0.3 <=1.5 % 11/07/2023 7:58 PM EDT [facility] Sodium, Arterial 141 135 - 145 mmol/L 11/07/2023 7:58 PM EDT [facility] Potassium, Arterial 4.0 3.5 - 5.0 mmol/L 11/07/2023 7:58 PM EDT [facility] Chloride, Arterial 108(H) 98 - 107 mmol/L 11/07/2023 7:58 PM EDT [facility] Lactate, Arterial 0.8 0.5 - 2.2 mmol/L 11/07/2023 7:58 PM EDT [facility] Fraction of Inspired Oxygen 60 % 11/07/2023 7:58 PM EDT [facility] PF Ratio 187 Ratio 11/07/2023 7:58 PM EDT [facility] Comment:PF ratio calculated using the non-temperature corrected pO2 result. IONIZED CALCIUM, ARTERIAL 1.17 1.15 - 1.33 mmol/L 11/07/2023 7:58 PM EDT [facility] Glucose, Arterial 187 65 - 199 mg/dL 11/07/2023 7:58 PM EDT [facility] Comment:Glucose Concentratio n >=200 mg/dL plus symptoms is consistent with Diabetes Mellitus. Blood ARTERIAL BLOOD / Unknown 11/07/2023 7:57 PM EDT 11/07/2023 7:58 PM EDT Timi Person MD POINT OF CARE TEST ORDERABLES [facility] [place] [address] * (ABNORMAL) Blood Gas, Arterial POC (11/07/2023 5:49 PM EDT) pH, Arterial 7.42 7.35 - 7.45 11/07/2023 5:50 PM EDT [facility] PCO2, Arterial 36 35 - 45 mmHg 11/07/2023 5:50 PM [facility] PO2, Arterial 135(H) 85 - 104 mmHg 11/07/2023 5:50 PM [facility] Bicarbonate, Arterial 22.8 20.0 - 26.0 mmol/L 11/07/2023 5:50 PM [facility] Base Excess, Arterial -1.7 -3.0 - 3.0 mmol/L 11/07/2023 5:50 PM [facility] Hemoglobin, Arterial 10.3(L) 13.7 - 16.5 g/dL 11/07/2023 5:50 PM [facility] Oxyhemoglobin, Arterial 97.8(H) 94.0 - 97.0 % 11/07/2023 5:50 PM [facility] Carboxyhemoglobin , Arterial 0.0 % 11/07/2023 5:50 PM [facility] Comment: Nonsmokers: 0.5-1.5% COHB ?? Smokers: Variable ??but usually less than 10% ?? Toxic: 20-30% COHB ?? Lethal: Greater than 60% COHB Methemoglobin, Arterial 0.3 <=1.5 % 11/07/2023 5:50 PM [facility] Sodium, Arterial 142 135 - 145 mmol/L 11/07/2023 5:50 PM [facility] Potassium, Arterial 3.9 3.5 - 5.0 mmol/L 11/07/2023 5:50 PM [facility] Chloride, Arterial 107 98 - 107 mmol/L 11/07/2023 5:50 PM [facility] Lactate, Arterial 0.9 0.5 - 2.2 mmol/L 11/07/2023 5:50 PM [facility] Fraction of Inspired Oxygen 60 % 11/07/2023 5:50 PM [facility] PF Ratio 225 Ratio 11/07/2023 5:50 PM [facility] Comment:PF ratio calculated using the non-temperature corrected pO2 result. IONIZED CALCIUM, ARTERIAL 1.17 1.15 - 1.33 mmol/L 11/07/2023 5:50 PM EDT [facility] Glucose, Arterial 159 65 - 199 mg/dL 11/07/2023 5:50 PM EDT [facility] Comment:Glucose Concentratio n >=200 mg/dL plus symptoms is consistent with Diabetes Mellitus. Blood ARTERIAL BLOOD / Unknown 11/07/2023 5:49 PM EDT 11/07/2023 5:50 PM EDT Timi Person MD POINT OF CARE TEST ORDERABLES [facility] [place] [address] * (ABNORMAL) Blood Gas, Arterial POC (11/07/2023 5:45 PM EDT) pH, Arterial 7.40 7.35 - 7.45 11/07/2023 5:46 PM EDT [facility] PCO2, Arterial 37 35 - 45 mmHg 11/07/2023 5:46 PM EDT [facility] PO2, Arterial 11/07/2023 5:46 PM EDT [facility] Comment:QUES Bicarbonate, Arterial 22.6 20.0 - 26.0 mmol/L 11/07/2023 5:46 PM EDT [facility] Base Excess, Arterial -2.1 -3.0 - 3.0 mmol/L 11/07/2023 5:46 PM EDT [facility] Hemoglobin, Arterial 10.3(L) 13.7 - 16.5 g/dL 11/07/2023 5:46 PM EDT [facility] Oxyhemoglobin, Arterial 97.2(H) 94.0 - 97.0 % 11/07/2023 5:46 PM EDT [facility] Carboxyhemoglobin , Arterial 0.3 % 11/07/2023 5:46 PM EDT [facility] Comment: Nonsmokers: 0.5-1.5% COHB ?? Smokers: Variable ??but usually less than 10% ?? Toxic: 20-30% COHB ?? Lethal: Greater than 60% COHB Methemoglobin, Arterial 0.3 <=1.5 % 11/07/2023 5:46 PM EDT [facility] Sodium, Arterial 140 135 - 145 mmol/L 11/07/2023 5:46 PM EDT [facility] Potassium, Arterial 3.9 3.5 - 5.0 mmol/L 11/07/2023 5:46 PM EDT [facility] Chloride, Arterial 108(H) 98 - 107 mmol/L 11/07/2023 5:46 PM EDT [facility] Lactate, Arterial 0.9 0.5 - 2.2 mmol/L 11/07/2023 5:46 PM EDT [facility] Fraction of Inspired Oxygen 60 % 11/07/2023 5:46 PM EDT [facility] IONIZED CALCIUM, ARTERIAL 1.17 1.15 - 1.33 mmol/L 11/07/2023 5:46 PM EDT [facility] Glucose, Arterial 158 65 - 199 mg/dL 11/07/2023 5:46 PM EDT [facility] Comment:Glucose Concentratio n >=200 mg/dL plus symptoms is consistent with Diabetes Mellitus. Blood ARTERIAL BLOOD / Unknown 11/07/2023 5:45 PM EDT 11/07/2023 5:46 PM EDT Timi Person MD POINT OF CARE TEST ORDERABLES [facility] [place] [address] * (ABNORMAL) Electrolytes panel (11/07/2023 5:43 PM EDT) Sodium 143 135 - 145 mMol/L 11/07/2023 6:25 PM EDT [facility] Potassium 4.1 3.5 - 5.0 mMol/L 11/07/2023 6:25 PM EDT [facility] Chloride 105 98 - 107 mMol/L 11/07/2023 6:25 PM EDT [facility] Carbon Dioxide 22 22 - 31 mMol/L 11/07/2023 6:25 PM EDT [facility] Anion Gap 16(H) 5 - 15 mMol/L 11/07/2023 6:25 PM EDT [facility] Blood ARTERIAL BLOOD / Unknown IP Care Team Draw / Unknown 11/07/2023 5:43 PM EDT 11/07/2023 5:50 PM EDT Calos Lazo MD CHEMISTRY ORDERABLES Performing Organization Address City/[facility] Co de Phone Number [facility] [place] [address] * (ABNORMAL) BUN (11/07/2023 5:43 PM EDT) Blood Urea Nitrogen 83(H) 10 - 20 mg/dL 11/07/2023 6:25 PM EDT [facility] Blood ARTERIAL BLOOD / Unknown IP Care Team Draw / Unknown 11/07/2023 5:43 PM EDT 11/07/2023 5:50 PM EDT Calos Lazo MD CHEMISTRY ORDERABLES Performing Organization Address City/[facility]/ZIP Co de Phone Number [facility] [place] [address] * (ABNORMAL) Creatinine (11/07/2023 5:43 PM EDT) Creatinine 4.71(H) 0.80 - 1.50 mg/dL 11/07/2023 6:42 PM EDT [facility] Est Glomerular Filtration Rate - Male 15 mL/min/1. 73 m?? 11/07/2023 6:42 PM EDT [facility] Comment: This patient's estimated GFR [...] Link: eGFR Calculator [employer] Blood ARTERIAL BLOOD / Unknown IP Care Team Draw / Unknown 11/07/2023 5:43 PM EDT 11/07/2023 5:50 PM EDT Calos Lazo MD CHEMISTRY ORDERABLES Performing Organization Address City/[facility] Co de Phone Number [facility] [place] [address] * Magnesium (11/07/2023 5:43 PM EDT) Magnesium 1.02 0.69 - 1.07 mMol/L 11/07/2023 6:25 PM EDT [facility] Blood ARTERIAL BLOOD / Unknown IP Care Team Draw / Unknown 11/07/2023 5:43 PM EDT 11/07/2023 5:50 PM EDT Calos Lazo MD CHEMISTRY ORDERABLES Performing Organization Address [facility] [place] [address] * (ABNORMAL) Phosphorus (11/07/2023 5:43 PM EDT) Phosphorus 6.6(H) 2.5 - 4.5 mg/dL 11/07/2023 6:25 PM EDT [facility] Blood ARTERIAL BLOOD / Unknown IP Care Team Draw / Unknown 11/07/2023 5:43 PM EDT 11/07/2023 5:50 PM EDT Calos Lazo MD CHEMISTRY ORDERABLES Performing Organization Address City/[facility] Co de Phone Number [facility] [place] [address] * POC, GLUCOSE (11/07/2023 5:13 PM EDT) Glucometer, POC 153 65 - 199 mg/dL 11/07/2023 5:14 PM EDT [facility] Comment:Supplemental ranges: <140 mg/dL before meals <180 mg/dL all other times of the day. Blood CAPILLARY BLOOD / Unknown 11/07/2023 5:13 PM EDT 11/07/2023 5:14 PM EDT Timi Person MD POINT OF CARE TEST ORDERABLES Performing Organization Address City/[facility]/ZIP Co de Phone Number [facility] [place] [address] * POC, GLUCOSE (11/07/2023 3:24 PM EDT) Glucometer, POC 158 65 - 199 mg/dL 11/07/2023 3:24 PM EDT [facility] Comment:Supplemental ranges: <140 mg/dL before meals <180 mg/dL all other times of the day. Blood CAPILLARY BLOOD / Unknown 11/07/2023 3:24 PM EDT 11/07/2023 3:25 PM EDT Timi Person MD POINT OF CARE TEST ORDERABLES [facility] [place] [address] * Transfuse RBC (11/07/2023 1:49 PM EDT) Aby Williamson APRN NURSING TREATMENT ORDERABLES - BLOOD ADMIN * Transfuse RBC (11/07/2023 1:49 PM EDT) Aby Williamson APRN NURSING TREATMENT ORDERABLES - BLOOD ADMIN * (ABNORMAL) Blood Gas, Arterial POC (11/07/2023 1:32 PM EDT) pH, Arterial 7.38 7.35 - 7.45 11/07/2023 1:33 PM [facility] PCO2, Arterial 37 35 - 45 mmHg 11/07/2023 1:33 PM [facility] PO2, Arterial 84(L) 85 - 104 mmHg 11/07/2023 1:33 PM [facility] Bicarbonate, Arterial 21.4 20.0 - 26.0 mmol/L 11/07/2023 1:33 PM [facility] Base Excess, Arterial -3.8(L) -3.0 - 3.0 mmol/L 11/07/2023 1:33 PM [facility] Hemoglobin, Arterial 10.5(L) 13.7 - 16.5 g/dL 11/07/2023 1:33 PM [facility] Oxyhemoglobin, Arterial 94.5 94.0 - 97.0 % 11/07/2023 1:33 PM [facility] Carboxyhemoglobin , Arterial 0.3 % 11/07/2023 1:33 PM [facility] Comment: Nonsmokers: 0.5-1.5% COHB ?? Smokers: Variable ??but usually less than 10% ?? Toxic: 20-30% COHB ?? Lethal: Greater than 60% COHB Methemoglobin, Arterial 0.3 <=1.5 % 11/07/2023 1:33 PM [facility] Sodium, Arterial 143 135 - 145 mmol/L 11/07/2023 1:33 PM [facility] Potassium, Arterial 3.8 3.5 - 5.0 mmol/L 11/07/2023 1:33 PM [facility] Chloride, Arterial 109(H) 98 - 107 mmol/L 11/07/2023 1:33 PM [facility] Lactate, Arterial 1.1 0.5 - 2.2 mmol/L 11/07/2023 1:33 PM [facility] Fraction of Inspired Oxygen 70 % 11/07/2023 1:33 PM [facility] PF Ratio 120 Ratio 11/07/2023 1:33 PM EDT [facility] Comment:PF ratio calculated using the non-temperature corrected pO2 result. IONIZED CALCIUM, ARTERIAL 1.16 1.15 - 1.33 mmol/L 11/07/2023 1:33 PM EDT [facility] Glucose, Arterial 148 65 - 199 mg/dL 11/07/2023 1:33 PM EDT [facility] Comment:Glucose Concentratio n >=200 mg/dL plus symptoms is consistent with Diabetes Mellitus. Blood ARTERIAL BLOOD / Unknown 11/07/2023 1:32 PM EDT 11/07/2023 1:33 PM EDT Timi Person MD POINT OF CARE TEST ORDERABLES [facility] [place] [address] * (ABNORMAL) Blood Gas, Arterial POC (11/07/2023 11:49 AM EDT) pH, Arterial 7.37 7.35 - 7.45 11/07/2023 11:50 AM EDT [facility] PCO2, Arterial 40 35 - 45 mmHg 11/07/2023 11:50 AM EDT [facility] PO2, Arterial 75(L) 85 - 104 mmHg 11/07/2023 11:50 AM EDT [facility] Bicarbonate, Arterial 22.2 20.0 - 26.0 mmol/L 11/07/2023 11:50 AM EDT [facility] Base Excess, Arterial -3.2(L) -3.0 - 3.0 mmol/L 11/07/2023 11:50 AM EDT [facility] Hemoglobin, Arterial 10.1(L) 13.7 - 16.5 g/dL 11/07/2023 11:50 AM EDT [facility] Oxyhemoglobin, Arterial 93.4(L) 94.0 - 97.0 % 11/07/2023 11:50 AM EDT [facility] Carboxyhemoglobin , Arterial 0.3 % 11/07/2023 11:50 AM EDT [facility] Comment: Nonsmokers: 0.5-1.5% COHB ?? Smokers: Variable ??but usually less than 10% ?? Toxic: 20-30% COHB ?? Lethal: Greater than 60% COHB Methemoglobin, Arterial 0.3 <=1.5 % 11/07/2023 11:50 AM EDT [facility] Sodium, Arterial 142 135 - 145 mmol/L 11/07/2023 11:50 AM EDT [facility] Potassium, Arterial 4.3 3.5 - 5.0 mmol/L 11/07/2023 11:[facility] Chloride, Arterial 107 98 - 107 mmol/L 11/07/2023 11:50 AM [facility] Lactate, Arterial 1.1 0.5 - 2.2 mmol/L 11/07/2023 11:50 AM [facility] Fraction of Inspired Oxygen 50 % 11/07/2023 11:50 AM [facility] PF Ratio 150 Ratio 11/07/2023 11:50 AM [facility] Comment:PF ratio calculated using the non-temperature corrected pO2 result. IONIZED CALCIUM, ARTERIAL 1.17 1.15 - 1.33 mmol/L 11/07/2023 11:50 AM [facility] Glucose, Arterial 175 65 - 199 mg/dL 11/07/2023 11:50 AM T [facility] Comment:Glucose Concentratio n >=200 mg/dL plus symptoms is consistent with Diabetes Mellitus. Blood ARTERIAL BLOOD / Unknown 11/07/2023 11:49 AM EDT 11/07/2023 11:50 AM EDT Timi Person MD POINT OF CARE TEST ORDERABLES [facility] [place] [address] * (ABNORMAL) Phosphorus (11/07/2023 11:48 AM EDT) Phosphorus 9.6(HHH) 2.5 - 4.5 mg/dL 11/07/2023 1:16 PM EDT [facility] Blood ARTERIAL BLOOD / Unknown IP Care Team Draw / Unknown 11/07/2023 11:48 AM EDT 11/07/2023 12:07 PM EDT Calos Lazo MD CHEMISTRY ORDERABLES Performing Organization Address City/[facility] Co de Phone Number [facility] [place] [address] * (ABNORMAL) Magnesium (11/07/2023 11:48 AM EDT) Magnesium 1.19(H) 0.69 - 1.07 mMol/L 11/07/2023 1:06 PM EDT [facility] Blood ARTERIAL BLOOD / Unknown IP Care Team Draw / Unknown 11/07/2023 11:48 AM EDT 11/07/2023 12:07 PM EDT Calos Lazo MD CHEMISTRY ORDERABLES Performing Organization Address [facility] Co de Phone Number [facility] [place] [address] * (ABNORMAL) Creatinine (11/07/2023 11:48 AM EDT) Creatinine 6.24(H) 0.80 - 1.50 mg/dL 11/07/2023 1:06 PM EDT [facility] Est Glomerular Filtration Rate - Male 11 mL/min/1. 73 m?? 11/07/2023 1:06 PM EDT [facility] Comment: This patient's estimated GFR [...] Link: eGFR Calculator [employer] Blood ARTERIAL BLOOD / Unknown IP Care Team Draw / Unknown 11/07/2023 11:48 AM EDT 11/07/2023 12:07 PM EDT Calos Lazo MD CHEMISTRY ORDERABLES Performing Organization Address City/[facility]/ZIP Co de Phone Number [facility] [place] [address] * (ABNORMAL) BUN (11/07/2023 11:48 AM EDT) Blood Urea Nitrogen 101(H) 10 - 20 mg/dL 11/07/2023 1:06 PM EDT [facility] Blood ARTERIAL BLOOD / Unknown IP Care Team Draw / Unknown 11/07/2023 11:48 AM EDT 11/07/2023 12:07 PM EDT Calos Lazo MD CHEMISTRY ORDERABLES Performing Organization Address City/[facility]/ZIP Co de Phone Number [facility] [place] [address] * (ABNORMAL) Electrolytes panel (11/07/2023 11:48 AM EDT) Sodium 146(H) 135 - 145 mMol/L 11/07/2023 1:06 PM EDT [facility] Potassium 4.3 3.5 - 5.0 mMol/L 11/07/2023 1:06 PM EDT [facility] Chloride 105 98 - 107 mMol/L 11/07/2023 1:06 PM EDT [facility] Carbon Dioxide 21(L) 22 - 31 mMol/L 11/07/2023 1:06 PM EDT [facility] Anion Gap 20(H) 5 - 15 mMol/L 11/07/2023 1:06 PM EDT [facility] Blood ARTERIAL BLOOD / Unknown IP Care Team Draw / Unknown 11/07/2023 11:48 AM EDT 11/07/2023 12:07 PM EDT Calos Lazo MD CHEMISTRY ORDERABLES [facility] [place] [address] * POC, GLUCOSE (11/07/2023 8:49 AM EDT) [facility] Glucometer, POC 158 65 - 199 mg/dL 11/07/2023 8:58 AM EDT [facility] Comment:Supplemental ranges: <140 mg/dL before meals <180 mg/dL all other times of the day. Blood CAPILLARY BLOOD / Unknown 11/07/2023 8:49 AM EDT 11/07/2023 8:58 AM EDT Timi Person MD POINT OF CARE TEST ORDERABLES [facility] [place] [address] * ABORH RECHECK (PATIENT HISTORY FOUND) (11/07/2023 8:17 AM EDT) [facility] ABORH Recheck Progress Complete 11/07/2023 10:01 AM EDT [facility] Blood ARTERIAL BLOOD / Unknown IP Care Team Draw / Unknown 11/07/2023 8:17 AM EDT 11/07/2023 8:21 AM EDT Aby Williamson APRN BLOOD BANK LAB ORD ERABLES [facility] [place] [address] * Type and screen (MC/CGP/JEN) (11/07/2023 8:17 AM EDT) ABORH Type O POSITIVE 11/07/2023 9:26 AM EDT [facility] PATIENT HISTORY Found 11/07/2023 9:26 AM EDT [facility] Expires at [id number] on: 11/07/2023 9:26 AM EDT [facility] ANTIBODY SCREEN AUTOMATED Negative 11/07/2023 9:26 AM EDT [facility] T&S only valid at [facility] 11/07/2023 9:26 AM EDT [facility] Blood ARTERIAL BLOOD / Unknown IP Care Team Draw / Unknown 11/07/2023 8:17 AM EDT 11/07/2023 8:21 AM EDT Narrative [facility] - 11/07/2023 9:26 AM EDT This Type and Screen result is only valid at the [facility] Aby Williamson APRN BLOOD BANK LAB ORD ERABLES [facility] [place] [address] * (ABNORMAL) Blood Gas, Arterial POC (11/07/2023 8:05 AM EDT) pH, Arterial 7.37 7.35 - 7.45 11/07/2023 8:06 AM EDT [facility] PCO2, Arterial 40 35 - 45 mmHg 11/07/2023 8:06 AM [facility] PO2, Arterial 80(L) 85 - 104 mmHg 11/07/2023 8:[facility] Bicarbonate, Arterial 22.4 20.0 - 26.0 mmol/L 11/07/2023 8:06 AM [facility] Base Excess, Arterial -2.8 -3.0 - 3.0 mmol/L 11/07/2023 8:06 AM [facility] Hemoglobin, Arterial 8.4(L) 13.7 - 16.5 g/dL 11/07/2023 8:06 AM [facility] Oxyhemoglobin, Arterial 93.3(L) 94.0 - 97.0 % 11/07/2023 8:06 AM EDT [facility] Carboxyhemoglobin , Arterial 0.3 % 11/07/2023 8:06 AM EDT [facility] Comment: Nonsmokers: 0.5-1.5% COHB ?? Smokers: Variable ??but usually less than 10% ?? Toxic: 20-30% COHB ?? Lethal: Greater than 60% COHB Methemoglobin, Arterial 0.3 <=1.5 % 11/07/2023 8:06 AM EDT [facility] Sodium, Arterial 141 135 - 145 mmol/L 11/07/2023 8:06 AM EDT [facility] Potassium, Arterial 4.5 3.5 - 5.0 mmol/L 11/07/2023 8:06 AM EDT [facility] Chloride, Arterial 107 98 - 107 mmol/L 11/07/2023 8:06 AM EDT [facility] Lactate, Arterial 1.2 0.5 - 2.2 mmol/L 11/07/2023 8:06 AM EDT [facility] Fraction of Inspired Oxygen 50 % 11/07/2023 8:06 AM EDT [facility] PF Ratio 160 Ratio 11/07/2023 8:06 AM [facility] Comment:PF ratio calculated using the non-temperature corrected pO2 result. IONIZED CALCIUM, ARTERIAL 1.14(L) 1.15 - 1.33 mmol/L 11/07/2023 8:06 AM EDT [facility] Glucose, Arterial 169 65 - 199 mg/dL 11/07/2023 8:06 AM EDT [facility] Comment:Glucose Concentratio n >=200 mg/dL plus symptoms is consistent with Diabetes Mellitus. Blood ARTERIAL BLOOD / Unknown 11/07/2023 8:05 AM EDT 11/07/2023 8:06 AM EDT Timi Person MD POINT OF CARE TEST ORDERABLES [facility] [place] [address] * Potassium (11/07/2023 5:14 AM EDT) Pathologist [facility] Potassium 3.6 3.5 - 5.0 mMol/L 11/07/2023 5:58 AM EDT [facility] Blood VENOUS BLOOD SPECIMEN / Unknown IP Care Team Draw / Unknown 11/07/2023 5:14 AM EDT 11/07/2023 5:22 AM EDT Timi Person MD CHEMISTRY ORDERABLE S [facility] [place] [address] * (ABNORMAL) Blood Gas, Arterial POC (11/07/2023 4:07 AM EDT) [facility] pH, Arterial 7.38 7.35 - 7.45 11/07/2023 4:08 AM EDT [facility] PCO2, Arterial 37 35 - 45 mmHg 11/07/2023 4:08 AM [facility] PO2, Arterial 84(L) 85 - 104 mmHg 11/07/2023 4:08 AM [facility] Bicarbonate, Arterial 21.8 20.0 - 26.0 mmol/L 11/07/2023 4:08 AM [facility] Base Excess, Arterial -3.3(L) -3.0 - 3.0 mmol/L 11/07/2023 4:08 AM [facility] Hemoglobin, Arterial 8.7(L) 13.7 - 16.5 g/dL 11/07/2023 4:08 AM [facility] Oxyhemoglobin, Arterial 94.4 94.0 - 97.0 % 11/07/2023 4:08 AM EDT [facility] Carboxyhemoglobin , Arterial 0.3 % 11/07/2023 4:08 AM [facility] Comment: Nonsmokers: 0.5-1.5% COHB ?? Smokers: Variable ??but usually less than 10% ?? Toxic: 20-30% COHB ?? Lethal: Greater than 60% COHB Methemoglobin, Arterial 0.3 <=1.5 % 11/07/2023 4:08 AM EDT [facility] Sodium, Arterial 142 135 - 145 mmol/L 11/07/2023 4:08 AM EDT [facility] Potassium, Arterial 4.0 3.5 - 5.0 mmol/L 11/07/2023 4:08 AM EDT [facility] Chloride, Arterial 107 98 - 107 mmol/L 11/07/2023 4:08 AM EDT [facility] Lactate, Arterial 1.2 0.5 - 2.2 mmol/L 11/07/2023 4:08 AM [facility] Fraction of Inspired Oxygen 50 % 11/07/2023 4:08 AM [facility] PF Ratio 168 Ratio 11/07/2023 4:08 AM [facility] Comment:PF ratio calculated using the non-temperature corrected pO2 result. IONIZED CALCIUM, ARTERIAL 1.11(L) 1.15 - 1.33 mmol/L 11/07/2023 4:08 AM [facility] Glucose, Arterial 146 65 - 199 mg/dL 11/07/2023 4:08 AM [facility] Comment:Glucose Concentratio n >=200 mg/dL plus symptoms is consistent with Diabetes Mellitus. Blood ARTERIAL BLOOD / Unknown 11/07/2023 4:07 AM EDT 11/07/2023 4:08 AM EDT Timi Person MD POINT OF CARE TEST ORDERABLES [facility] [place] [address] * (ABNORMAL) Blood Gas, Arterial POC (11/07/2023 12:17 AM EDT) pH, Arterial 7.42 7.35 - 7.45 11/07/2023 12:18 AM EDT [facility] PCO2, Arterial 33(L) 35 - 45 mmHg 11/07/2023 12:18 AM [facility] PO2, Arterial 78(L) 85 - 104 mmHg 11/07/2023 12:18 AM [facility] Bicarbonate, Arterial 21.3 20.0 - 26.0 mmol/L 11/07/2023 12:18 AM [facility] Base Excess, Arterial -3.2(L) -3.0 - 3.0 mmol/L 11/07/2023 12:18 AM [facility] Hemoglobin, Arterial 8.8(L) 13.7 - 16.5 g/dL 11/07/2023 12:18 AM [facility] Oxyhemoglobin, Arterial 93.9(L) 94.0 - 97.0 % 11/07/2023 12:18 AM [facility] Carboxyhemoglobin , Arterial 0.2 % 11/07/2023 12:18 AM [facility] Comment: Nonsmokers: 0.5-1.5% COHB ?? Smokers: Variable ??but usually less than 10% ?? Toxic: 20-30% COHB ?? Lethal: Greater than 60% COHB Methemoglobin, Arterial 0.3 <=1.5 % 11/07/2023 12:18 AM [facility] Sodium, Arterial 141 135 - 145 mmol/L 11/07/2023 12:18 AM [facility] Potassium, Arterial 3.5 3.5 - 5.0 mmol/L 11/07/2023 12:18 AM [facility] Chloride, Arterial 106 98 - 107 mmol/L 11/07/2023 12:18 AM [facility] Lactate, Arterial 1.2 0.5 - 2.2 mmol/L 11/07/2023 12:18 AM [facility] Fraction of Inspired Oxygen 50 % 11/07/2023 12:18 AM [facility] PF Ratio 156 Ratio 11/07/2023 12:18 AM [facility] Comment:PF ratio calculated using the non-temperature corrected pO2 result. IONIZED CALCIUM, ARTERIAL 1.11(L) 1.15 - 1.33 mmol/L 11/07/2023 12:18 AM EDT [facility] Glucose, Arterial 153 65 - 199 mg/dL 11/07/2023 12:18 AM EDT [facility] Comment:Glucose Concentratio n >=200 mg/dL plus symptoms is consistent with Diabetes Mellitus. Blood ARTERIAL BLOOD / Unknown 11/07/2023 12:17 AM EDT 11/07/2023 12:18 AM EDT Timi Person MD POINT OF CARE TEST ORDERABLES Performing Organization Address City/[facility]/ZIP Co de Phone Number [facility] [place] [address] * (ABNORMAL) Scan, Peripheral Blood (11/07/2023 12:16 AM EDT) RBC Morphology Abnormal 11/07/2023 1:18 AM EDT [facility] Platelet Estimate Increased(A) Normal 11/06 1:18 AM EDT [facility] Microcyte 6-10 /HPF 11/07/2023 1:18 AM EDT [facility] Hypochromasia Slight 11/07/2023 1:18 AM EDT [facility] Ovalocytes 1-5 /HPF 11/07/2023 1:18 AM EDT [facility] Target Cell 1-5 /HPF 11/07/2023 1:18 AM EDT [facility] Marylou cells 6-10 /HPF 11/07/2023 1:18 AM EDT [facility] Blood VENOUS BLOOD SPECIMEN / Unknown IP Care Team Draw / Unknown 11/07/2023 12:16 AM EDT 11/07/2023 12:26 AM EDT Timi Person MD HEMATOLOGY ORDERABL ES [facility] [place] [address] * (ABNORMAL) CBC (with Diff) (11/07/2023 12:16 AM EDT) White Blood Cell 12.47(H) 4.00 - 9.50 x10(3)/mc L 11/07/2023 1:18 AM EDT [facility] Red Blood Cell 3.73(L) 4.58 - 5.54 x10(6)/mc L 11/07/2023 1:18 AM EDT [facility] Hemoglobin 7.9(L) 13.7 - 16.5 g/dL 11/07/2023 1:18 AM [facility] Hematocrit 25.0(L) 40.5 - 48.5 % 11/07/2023 1:18 AM [facility] Mean Cell Volume 67.0(L) 82.9 - 93.1 fL 11/07/2023 1:18 AM [facility] Mean Cell Hemoglobin 21.2(L) 27.5 - 32.1 pg 11/07/2023 1:18 AM [facility] Mean Cell Hemoglobin Concentration 31.6(L) 32.0 - 35.7 g/dL 11/07/2023 1:18 AM [facility] Platelet 361(H) 145 - 357 x10(3)/mc L 11/07/2023 1:18 AM [facility] Mean Platelet Volume 10.6 7.6 - 12.9 fL 11/07/2023 1:18 AM [facility] RDW Standard Deviation 44.9 36.0 - 45.0 fL 11/07/2023 1:18 AM [facility] RDW coefficient of variation 19.1(H) 11.4 - 13.8 % 11/07/2023 1:18 AM [facility] NRBC% auto 0.4 % 11/07/2023 1:18 AM [facility] NRBC Absolute 0.05(H) 0.00 - 0.00 x10(3)/mc L 11/07/2023 1:18 AM [facility] Neutrophil % 75.9 % 11/07/2023 1:18 AM [facility] Comment:This is an appended report. These results have been appended to a previously preliminary verified report. Neutrophil Absolute (ANC) - Automated 9.47(H) 1.70 - 6.10 x10(3)/mc L 11/07/2023 1:18 AM [facility] Comment:This is an appended report. These results have been appended to a previously preliminary verified report. Lymph % 10.5 % 11/07/2023 1:18 AM [facility] Comment:This is an appended report. These results have been appended to a previously preliminary verified report. Lymph Absolute 1.31 0.90 - 3.20 x10(3)/mc L 11/07/2023 1:18 AM [facility] Comment:This is an appended report. These results have been appended to a previously preliminary verified report. Monocyte % 7.5 % 11/07/2023 1:18 AM [facility] Comment:This is an appended report. These results have been appended to a previously preliminary verified report. Monocyte Absolute 0.93(H) 0.30 - 0.90 x10(3)/mc L 11/07/2023 1:18 AM [facility] Comment:This is an appended report. These results have been appended to a previously preliminary verified report. Eos % 2.2 % 11/07/2023 1:18 AM [facility] Comment:This is an appended report. These results have been appended to a previously preliminary verified report. Eos Absolute 0.28 0.00 - 0.40 x10(3)/mc L 11/07/2023 1:18 AM [facility] Comment:This is an appended report. These results have been appended to a previously preliminary verified report. Basophil % 0.5 % 11/07/2023 1:18 AM EDT [facility] Comment:This is an appended report. These results have been appended to a previously preliminary verified report. Baso Absolute 0.06 0.00 - 0.10 x10(3)/mc L 11/07/2023 1:18 AM EDT [facility] Comment:This is an appended report. These results have been appended to a previously preliminary verified report. Immature Gran % 3.4 % 1:18 AM EDT [facility] Comment:This is an appended report. These results have been appended to a previously preliminary verified report. Immature Gran Absolute 0.42(H) 0.00 - 0.04 x10(3)/mc L 11/07/2023 1:18 AM EDT [facility] Comment:This is an appended report. These results have been appended to a previously preliminary verified report. Blood VENOUS BLOOD SPECIMEN / Unknown IP Care Team Draw / Unknown 11/07/2023 12:16 AM EDT 11/07/2023 12:26 AM EDT Timi Person MD HEMATOLOGY ORDERABL ES [facility] [place] [id number] * (ABNORMAL) Basic Metabolic Panel (11/07/2023 12:16 AM EDT) Glucose 154 65 - 199 mg/dL 11/07/2023 1:12 AM EDT [facility] Comment:Glucose Concentratio n >=200 mg/dL plus symptoms is consistent with Diabetes Mellitus. Blood Urea Nitrogen 97(H) 10 - 20 mg/dL 11/07/2023 1:12 AM EDT [facility] Creatinine 6.39(H) 0.80 - 1.50 mg/dL 11/07/2023 1:12 AM EDT [facility] Sodium 148(H) 135 - 145 mMol/L 11/07/2023 1:12 AM EDT [facility] Potassium 3.5 3.5 - 5.0 mMol/L 11/07/2023 1:12 AM EDT [facility] Chloride 106 98 - 107 mMol/L 11/07/2023 1:12 AM EDT [facility] Carbon Dioxide 19(L) 22 - 31 mMol/L 11/07/2023 1:12 AM EDT [facility] Anion Gap 23(H) 5 - 15 mMol/L 11/07/2023 1:12 AM EDT [facility] Calcium 8.3(L) 8.5 - 10.5 mg/dL 11/07/2023 1:12 AM EDT [facility] Est Glomerular Filtration Rate - Male 10 mL/min/1. 73 m?? 11/07/2023 1:12 AM EDT [facility] Comment: This patient's estimated GFR [...] IP Care Team Draw / Unknown 11/07/2023 12:16 AM EDT 11/07/2023 12:26 AM EDT Timi Person MD CHEMISTRY ORDERABLE S [facility] [place] [address] * (ABNORMAL) Phosphorus (11/07/2023 12:16 AM EDT) Phosphorus 9.1(HHH) 2.5 - 4.5 mg/dL 11/07/2023 1:15 AM EDT [facility] Blood VENOUS BLOOD SPECIMEN / Unknown IP Care Team Draw / Unknown 11/07/2023 12:16 AM EDT 11/07/2023 12:26 AM EDT Timi Person MD CHEMISTRY ORDERABLE S [facility] [place] [address] * (ABNORMAL) Magnesium (11/07/2023 12:16 AM EDT) Magnesium 1.17(H) 0.69 - 1.07 mMol/L 11/07/2023 12:56 AM EDT [facility] Blood VENOUS BLOOD SPECIMEN / Unknown IP Care Team Draw / Unknown 11/07/2023 12:16 AM EDT 11/07/2023 12:26 AM EDT Timi Person MD CHEMISTRY ORDERABLE S Performing Organization Address City/[facility]/ZIP Co de Phone Number [facility] [place] [address] * Blood culture (11/06/2023 10:15 PM EDT) Blood Culture No growth at 120 hours 11/11/2023 11:01 PM EDT [facility] Blood VENOUS BLOOD SPECIMEN / Unknown IP Care Team Draw / Unknown 11/06/2023 10:15 PM EDT 11/06/2023 10:22 PM EDT Timi Person MD MICROBIOLOGY - BLOO D ORDERABLES [facility] [place] [address] * (ABNORMAL) Urinalysis Dipstick (11/06/2023 9:50 PM EDT) Glucose, Urine Dipstick Negative Negative 11/06/2023 10:14 PM EDT [facility] Protein, Urine Dipstick 100 mg/dL(A) Negative 11/06/2023 10:14 PM EDT [facility] Bilirubin, Urine Dipstick Negative Negative 11/06/2023 10:14 PM EDT [facility] Comment:Clinical correlation required for positive Urine Bilirubin results as false positive may occur with some drugs and drug related products. If a false positive is suspected a serum total bilirubin should be considered if clinically indicated. Urobilinogen, Urine Dipstick Normal Normal, 0.2 mg/dL, 1.0 mg/dL 11/06/2023 10:14 PM EDT [facility] pH, Urine (dipstick) 5.5 5.0 - 8.0 11/06/2023 10:14 PM EDT [facility] Blood, Urine Dipstick Negative Negative 11/06/2023 10:14 PM [facility] Ketone, Urine Dipstick Negative Negative 11/06/2023 10:14 PM EDT [facility] Nitrite, Urine Dipstick Negative Negative 11/06/2023 10:14 PM EDT [facility] Leukocytes, Urine Dipstick Negative Negative 11/06/2023 10:14 PM [facility] Specific Thermal Urine Automated 1.013 1.005 - 1.030 11/06/2023 10:14 PM [facility] Appearance, Urine Dipstick Clear Clear 11/06[facility]23 [facility] Color, Urine Dipstick Yellow Yellow, Dark Yellow 11/06/2023 10:14 PM EDT [facility] CULTURE ADDED? 11/06/2023 10:14 PM [facility] Urine URINE SPECIMEN OBTAINED VIA [employer] [facility] [employer]HE[employer] / Unknown Non Blood Collection / Unknown 11/06/2023 9:50 PM EDT 11/06/2023 9:57 PM EDT Timi Person MD URINE ORDERABLES [facility] [place] [address] * (ABNORMAL) Blood Gas, Arterial POC (11/06/2023 7:59 PM EDT) pH, Arterial 7.44 7.35 - 7.45 11/06/2023 8:00 PM [facility] PCO2, Arterial 31(L) 35 - 45 mmHg 11/06/2023 8:00 PM [facility] PO2, Arterial 79(L) 85 - 104 mmHg 11/06/2023 8:00 PM [facility] Bicarbonate, Arterial 20.5 20.0 - 26.0 mmol/L 11/06/2023 8:00 PM [facility] Base Excess, Arterial -3.6(L) -3.0 - 3.0 mmol/L 11/06/2023 8:00 PM [facility] Hemoglobin, Arterial 8.5(L) 13.7 - 16.5 g/dL 11/06/2023 8:00 PM [facility] Oxyhemoglobin, Arterial 94.1 94.0 - 97.0 % 11/06/2023 8:00 PM [facility] Carboxyhemoglobin , Arterial 0.3 % 11/06/2023 8:00 PM [facility] Comment: Nonsmokers: 0.5-1.5% COHB ?? Smokers: Variable ??but usually less than 10% ?? Toxic: 20-30% COHB ?? Lethal: Greater than 60% COHB Methemoglobin, Arterial 0.3 <=1.5 % 11/06/2023 8:00 PM [facility] Sodium, Arterial 141 135 - 145 mmol/L 11/06/2023 8:00 PM [facility] Potassium, Arterial 3.6 3.5 - 5.0 mmol/L 11/06/2023 8:00 PM [facility] Chloride, Arterial 109(H) 98 - 107 mmol/L 11/06/2023 8:00 PM [facility] Lactate, Arterial 1.1 0.5 - 2.2 mmol/L 11/06/2023 8:00 PM EDT [facility] Fraction of Inspired Oxygen 50 % 11/06/2023 8:00 PM EDT [facility] PF Ratio 158 Ratio 11/06/2023 8:00 PM EDT [facility] Comment:PF ratio calculated using the non-temperature corrected pO2 result. IONIZED CALCIUM, ARTERIAL 1.07(L) 1.15 - 1.33 mmol/L 11/06/2023 8:00 PM EDT [facility] Glucose, Arterial 193 65 - 199 mg/dL 11/06/2023 8:00 PM EDT [facility] Comment:Glucose Concentratio n >=200 mg/dL plus symptoms is consistent with Diabetes Mellitus. Blood ARTERIAL BLOOD / Unknown 11/06/2023 7:59 PM EDT 11/06/2023 8:00 PM EDT Timi Person MD POINT OF CARE TEST ORDERABLES [facility] [place] [address] * (ABNORMAL) POC, GLUCOSE (11/06/2023 7:18 PM EDT) Glucometer, POC 234(H) 65 - 199 mg/dL 11/06/2023 7:18 PM EDT [facility] Comment:Supplemental ranges: <140 mg/dL before meals <180 mg/dL all other times of the day. Blood CAPILLARY BLOOD / Unknown 11/06/2023 7:18 PM EDT 11/06/2023 7:19 PM EDT Timi Person MD POINT OF CARE TEST ORDERABLES [facility] [place] [address] * (ABNORMAL) Blood Gas, Arterial POC (11/06/2023 4:00 PM EDT) pH, Arterial 7.42 7.35 - 7.45 11/06/2023 4:03 PM [facility] PCO2, Arterial 32(L) 35 - 45 mmHg 11/06/2023 4:03 PM [facility] PO2, Arterial 80(L) 85 - 104 mmHg 11/06/2023 4:03 PM [facility] Bicarbonate, Arterial 20.1 20.0 - 26.0 mmol/L 11/06/2023 4:03 PM [facility] Base Excess, Arterial -4.4(L) -3.0 - 3.0 mmol/L 11/06/2023 4:03 PM [facility] Hemoglobin, Arterial 8.5(L) 13.7 - 16.5 g/dL 11/06/2023 4:03 PM [facility] Oxyhemoglobin, Arterial 94.1 94.0 - 97.0 % 11/06/2023 4:03 PM [facility] Carboxyhemoglobin , Arterial 0.4 % 11/06/2023 4:03 PM [facility] Comment: Nonsmokers: 0.5-1.5% COHB ?? Smokers: Variable ??but usually less than 10% ?? Toxic: 20-30% COHB ?? Lethal: Greater than 60% COHB Methemoglobin, Arterial 0.3 <=1.5 % 11/06/2023 4:03 PM [facility] Sodium, Arterial 136 135 - 145 mmol/L 11/06/2023 4:03 PM [facility] Potassium, Arterial 4.0 3.5 - 5.0 mmol/L 11/06/2023 4:03 PM [facility] Chloride, Arterial 106 98 - 107 mmol/L 11/06/2023 4:03 PM [facility] Lactate, Arterial 1.1 0.5 - 2.2 mmol/L 11/06/2023 4:03 PM [facility] Fraction of Inspired Oxygen 50 % 11/06/2023 4:03 PM EDT [facility] PF Ratio 160 Ratio 11/06/2023 4:03 PM EDT [facility] Comment:PF ratio calculated using the non-temperature corrected pO2 result. IONIZED CALCIUM, ARTERIAL 1.04(L) 1.15 - 1.33 mmol/L 11/06/2023 4:03 PM EDT [facility] Glucose, Arterial 257(H) 65 - 199 mg/dL 11/06/2023 4:03 PM EDT [facility] Comment:Glucose Concentratio n >=200 mg/dL plus symptoms is consistent with Diabetes Mellitus. Blood ARTERIAL BLOOD / Unknown 11/06/2023 4:00 PM EDT 11/06/2023 4:03 PM EDT Timi Person MD POINT OF CARE TEST ORDERABLES Performing Organization Address City/State/[facility] Co de Phone Number [facility] [place] [address] * (ABNORMAL) Blood Gas, Arterial POC (11/06/2023 1:50 PM EDT) pH, Arterial 7.39 7.35 - 7.45 11/06/2023 1:52 PM EDT [facility] PCO2, Arterial 31(L) 35 - 45 mmHg 11/06/2023 1:52 PM EDT [facility] PO2, Arterial 65(L) 85 - 104 mmHg 11/06/2023 1:52 PM EDT [facility] Bicarbonate, Arterial 17.9(L) 20.0 - 26.0 mmol/L 11/06/2023 1:52 PM EDT [facility] Base Excess, Arterial -7.1(L) -3.0 - 3.0 mmol/L 11/06/2023 1:52 PM EDT [facility] Hemoglobin, Arterial 9.6(L) 13.7 - 16.5 g/dL 11/06/2023 1:52 PM EDT [facility] Oxyhemoglobin, Arterial 90.3(L) 94.0 - 97.0 % 11/06/2023 1:52 PM EDT [facility] Carboxyhemoglobin , Arterial 0.2 % 11/06/2023 1:52 PM EDT [facility] Comment: Nonsmokers: 0.5-1.5% COHB ?? Smokers: Variable ??but usually less than 10% ?? Toxic: 20-30% COHB ?? Lethal: Greater than 60% COHB Methemoglobin, Arterial 0.3 <=1.5 % 11/06/2023 1:52 PM EDT [facility] Sodium, Arterial 141 135 - 145 mmol/L 11/06/2023 1:52 PM EDT [facility] Potassium, Arterial 4.0 3.5 - 5.0 mmol/L 11/06/2023 1:52 PM EDT [facility] Chloride, Arterial 107 98 - 107 mmol/L 11/06/2023 1:52 PM EDT [facility] Lactate, Arterial 1.1 0.5 - 2.2 mmol/L 11/06/2023 1:52 PM EDT [facility] Fraction of Inspired Oxygen 40 % 11/06/2023 1:52 PM EDT [facility] PF Ratio 163 Ratio 11/06/2023 1:52 PM EDT [facility] Comment:PF ratio calculated using the non-temperature corrected pO2 result. IONIZED CALCIUM, ARTERIAL 1.07(L) 1.15 - 1.33 mmol/L 11/06/2023 1:52 PM EDT [facility] Glucose, Arterial 242(H) 65 - 199 mg/dL 11/06/2023 1:52 PM EDT [facility] Comment:Glucose Concentratio n >=200 mg/dL plus symptoms is consistent with Diabetes Mellitus. Blood ARTERIAL BLOOD / Unknown 11/06/2023 1:50 PM EDT 11/06/2023 1:52 PM EDT Timi Person MD POINT OF CARE TEST ORDERABLES [facility] [place] [address] * (ABNORMAL) Blood Gas, Arterial POC (11/06/2023 11:46 AM EDT) pH, Arterial 7.37 7.35 - 7.45 11/06/2023 11:48 AM EDT [facility] PCO2, Arterial 34(L) 35 - 45 mmHg 11/06/2023 11:48 AM EDT [facility] PO2, Arterial 73(L) 85 - 104 mmHg 11/06/2023 11:48 AM EDT [facility] Bicarbonate, Arterial 19.0(L) 20.0 - 26.0 mmol/L 11/06/2023 11:[facility] Base Excess, Arterial -6.3(L) -3.0 - 3.0 mmol/L 11/06/2023 11:48 AM EDT [facility] Hemoglobin, Arterial 8.7(L) 13.7 - 16.5 g/dL 11/06/2023 11:48 AM EDT [facility] Oxyhemoglobin, Arterial 92.2(L) 94.0 - 97.0 % 11/06/2023 11:48 AM [facility] Carboxyhemoglobin , Arterial 0.4 % 11/06/2023 11:48 AM [facility] Comment: Nonsmokers: 0.5-1.5% COHB ?? Smokers: Variable ??but usually less than 10% ?? Toxic: 20-30% COHB ?? Lethal: Greater than 60% COHB Methemoglobin, Arterial 0.3 <=1.5 % 11/06/2023 11:48 AM EDT [facility] Sodium, Arterial 142 135 - 145 mmol/L 11/06/2023 11:48 AM [facility] Potassium, Arterial 4.0 3.5 - 5.0 mmol/L 11/06/2023 11:48 AM EDT [facility] Chloride, Arterial 108(H) 98 - 107 mmol/L 11/06/2023 11:48 AM EDT [facility] Lactate, Arterial 1.1 0.5 - 2.2 mmol/L 11/06/2023 11:48 AM EDT [facility] Fraction of Inspired Oxygen 40 % 11/06/2023 11:48 AM EDT [facility] PF Ratio 183 Ratio 11/06/2023 11:48 AM EDT [facility] Comment:PF ratio calculated using the non-temperature corrected pO2 result. IONIZED CALCIUM, ARTERIAL 1.07(L) 1.15 - 1.33 mmol/L 11/06/2023 11:48 AM EDT [facility] Glucose, Arterial 208(H) 65 - 199 mg/dL 11/06/2023 11:48 AM EDT [facility] Comment:Glucose Concentratio n >=200 mg/dL plus symptoms is consistent with Diabetes Mellitus. Blood ARTERIAL BLOOD / Unknown 11/06/2023 11:46 AM EDT 11/06/2023 11:47 AM EDT Timi Person MD POINT OF CARE TEST ORDERABLES [facility] [place] [address] * Potassium (11/06/2023 7:53 AM EDT) Potassium 4.3 3.5 - 5.0 mMol/L 11/06/2023 8:37 AM EDT [facility] Blood VENOUS BLOOD SPECIMEN / Unknown IP Care Team Draw / Unknown 11/06/2023 7:53 AM EDT 11/06/2023 7:57 AM EDT Timi Person MD CHEMISTRY ORDERABLE S [facility] [place] [address] * (ABNORMAL) Blood Gas, Arterial POC (11/06/2023 7:51 AM EDT) pH, Arterial 7.37 7.35 - 7.45 11/06/2023 7:52 AM [facility] PCO2, Arterial 35 35 - 45 mmHg 11/06/2023 7:52 AM [facility] PO2, Arterial 81(L) 85 - 104 mmHg 11/06/2023 7:52 AM [facility] Bicarbonate, Arterial 19.6(L) 20.0 - 26.0 mmol/L 11/06/2023 7:52 AM [facility] Base Excess, Arterial -5.7(L) -3.0 - 3.0 mmol/L 11/06/2023 7:52 AM [facility] Hemoglobin, Arterial 9.8(L) 13.7 - 16.5 g/dL 11/06/2023 7:52 AM [facility] Oxyhemoglobin, Arterial 93.7(L) 94.0 - 97.0 % 11/06/2023 7:52 AM [facility] Carboxyhemoglobin , Arterial 0.3 % 11/06/2023 7:52 AM [facility] Comment: Nonsmokers: 0.5-1.5% COHB ?? Smokers: Variable ??but usually less than 10% ?? Toxic: 20-30% COHB ?? Lethal: Greater than 60% COHB Methemoglobin, Arterial 0.3 <=1.5 % 11/06/2023 7:52 AM [facility] Sodium, Arterial 140 135 - 145 mmol/L 11/06/2023 7:52 AM [facility] Potassium, Arterial 4.1 3.5 - 5.0 mmol/L 11/06/2023 7:52 AM [facility] Chloride, Arterial 106 98 - 107 mmol/L 11/06/2023 7:52 AM [facility] Lactate, Arterial 1.0 0.5 - 2.2 mmol/L 11/06/2023 7:52 AM EDT [facility] Fraction of Inspired Oxygen 40 % 11/06/2023 7:52 AM EDT [facility] PF Ratio 203 Ratio 11/06/2023 7:52 AM EDT [facility] Comment:PF ratio calculated using the non-temperature corrected pO2 result. IONIZED CALCIUM, ARTERIAL 1.07(L) 1.15 - 1.33 mmol/L 11/06/2023 7:52 AM EDT [facility] Glucose, Arterial 183 65 - 199 mg/dL 11/06/2023 7:52 AM EDT [facility] Comment:Glucose Concentratio n >=200 mg/dL plus symptoms is consistent with Diabetes Mellitus. Blood ARTERIAL BLOOD / Unknown 11/06/2023 7:51 AM EDT 11/06/2023 7:52 AM EDT Timi Person MD POINT OF CARE TEST ORDERABLES Performing Organization Address City/State/[facility] Co de Phone Number [facility] [place] [address] * (ABNORMAL) Blood Gas, Arterial POC (11/06/2023 6:48 AM EDT) pH, Arterial 7.39 7.35 - 7.45 11/06/2023 6:49 AM EDT [facility] PCO2, Arterial 34(L) 35 - 45 mmHg 11/06/2023 6:49 AM EDT [facility] PO2, Arterial 86 85 - 104 mmHg 11/06/2023 6:49 AM EDT [facility] Bicarbonate, Arterial 20.2 20.0 - 26.0 mmol/L 11/06/2023 6:49 AM EDT [facility] Base Excess, Arterial -4.9(L) -3.0 - 3.0 mmol/L 11/06/2023 6:49 AM EDT [facility] Hemoglobin, Arterial 9.2(L) 13.7 - 16.5 g/dL 11/06/2023 6:49 AM EDT [facility] Oxyhemoglobin, Arterial 94.6 94.0 - 97.0 % 11/06/2023 6:49 AM [facility] Carboxyhemoglobin , Arterial 0.3 % 11/06/2023 6:49 AM [facility] Comment: Nonsmokers: 0.5-1.5% COHB ?? Smokers: Variable ??but usually less than 10% ?? Toxic: 20-30% COHB ?? Lethal: Greater than 60% COHB Methemoglobin, Arterial 0.3 <=1.5 % 11/06/2023 6:49 AM [facility] Sodium, Arterial 140 135 - 145 mmol/L 11/06/2023 6:49 AM [facility] Potassium, Arterial 4.5 3.5 - 5.0 mmol/L 11/06/2023 6:49 AM [facility] Chloride, Arterial 105 98 - 107 mmol/L 11/06/2023 6:49 AM [facility] Lactate, Arterial 1.0 0.5 - 2.2 mmol/L 11/06/2023 6:49 AM [facility] Fraction of Inspired Oxygen 40 % 11/06/2023 6:49 AM [facility] PF Ratio 215 Ratio 11/06/2023 6:49 AM [facility] Comment:PF ratio calculated using the non-temperature corrected pO2 result. IONIZED CALCIUM, ARTERIAL 1.09(L) 1.15 - 1.33 mmol/L 11/06/2023 6:49 AM [facility] Glucose, Arterial 197 65 - 199 mg/dL 11/06/2023 6:49 AM [facility] Comment:Glucose Concentratio n >=200 mg/dL plus symptoms is consistent with Diabetes Mellitus. Blood ARTERIAL BLOOD / Unknown 11/06/2023 6:48 AM EDT 11/06/2023 6:49 AM EDT Timi Person MD POINT OF CARE TEST ORDERABLES [facility] [place] [address] * (ABNORMAL) Blood Gas, Arterial POC (11/06/2023 4:08 AM EDT) pH, Arterial 7.41 7.35 - 7.45 11/06/2023 4:09 AM EDT [facility] PCO2, Arterial 35 35 - 45 mmHg 11/06/2023 4:09 AM EDT [facility] PO2, Arterial 94 85 - 104 mmHg 11/06/2023 4:09 AM EDT [facility] Bicarbonate, Arterial 21.3 20.0 - 26.0 mmol/L 11/06/2023 4:09 AM [facility] Base Excess, Arterial -3.4(L) -3.0 - 3.0 mmol/L 11/06/2023 4:09 AM EDT [facility] Hemoglobin, Arterial 9.2(L) 13.7 - 16.5 g/dL 11/06/2023 4:09 [facility] Oxyhemoglobin, Arterial 96.0 94.0 - 97.0 % 11/06/2023 4:09 AM [facility] Carboxyhemoglobin , Arterial 0.1 % 11/06/2023 4:09 AM [facility] Comment: Nonsmokers: 0.5-1.5% COHB ?? Smokers: Variable ??but usually less than 10% ?? Toxic: 20-30% COHB ?? Lethal: Greater than 60% COHB Methemoglobin, Arterial 0.3 <=1.5 % 11/06/2023 4:09 AM EDT [facility] Sodium, Arterial 140 135 - 145 mmol/L 11/06/2023 4:09 AM [facility] Potassium, Arterial 4.0 3.5 - 5.0 mmol/L 11/06/2023 4:09 AM EDT [facility] Chloride, Arterial 105 98 - 107 mmol/L 11/06/2023 4:09 AM EDT [facility] Lactate, Arterial 1.2 0.5 - 2.2 mmol/L 11/06/2023 4:09 AM EDT [facility] Fraction of Inspired Oxygen 50 % 11/06/2023 4:09 AM EDT [facility] PF Ratio 188 Ratio 11/06/2023 4:09 AM EDT [facility] Comment:PF ratio calculated using the non-temperature corrected pO2 result. IONIZED CALCIUM, ARTERIAL 1.07(L) 1.15 - 1.33 mmol/L 11/06/2023 4:09 AM EDT [facility] Glucose, Arterial 188 65 - 199 mg/dL 11/06/2023 4:09 AM EDT [facility] Comment:Glucose Concentratio n >=200 mg/dL plus symptoms is consistent with Diabetes Mellitus. Blood ARTERIAL BLOOD / Unknown 11/06/2023 4:08 AM EDT 11/06/2023 4:09 AM EDT Timi Person MD POINT OF CARE TEST ORDERABLES [facility] [place] [address] * Potassium (11/06/2023 4:06 AM EDT) Potassium 3.6 3.5 - 5.0 mMol/L 11/06/2023 4:38 AM EDT [facility] Blood VENOUS BLOOD SPECIMEN / Unknown IP Care Team Draw / Unknown 11/06/2023 4:06 AM EDT 11/06/2023 4:10 AM EDT Timi Person MD CHEMISTRY ORDERABLE S [facility] [place] [address] * (ABNORMAL) CBC (with Diff) (11/06/2023 12:01 AM EDT) White Blood Cell 13.00(H) 4.00 - 9.50 x10(3)/mc L 11/06/2023 12:19 AM [facility] Red Blood Cell 3.93(L) 4.58 - 5.54 x10(6)/mc L 11/06/2023 12:19 AM [facility] Hemoglobin 8.3(L) 13.7 - 16.5 g/dL 11/06/2023 12:19 AM [facility] Hematocrit 26.2(L) 40.5 - 48.5 % 11/06/2023 12:19 AM [facility] Mean Cell Volume 66.7(L) 82.9 - 93.1 fL 11/06/2023 12:19 AM [facility] Mean Cell Hemoglobin 21.1(L) 27.5 - 32.1 pg 11/06/2023 12:19 AM [facility] Mean Cell Hemoglobin Concentration 31.7(L) 32.0 - 35.7 g/dL 11/06/2023 12:19 AM [facility] Platelet 300 145 - 357 x10(3)/mc L 11/06/2023 12:19 AM [facility] Mean Platelet Volume 10.7 7.6 - 12.9 fL 11/06/2023 12:19 AM [facility] RDW Standard Deviation 44.1 36.0 - 45.0 fL 11/06/2023 12:19 AM [facility] RDW coefficient of variation 18.8(H) 11.4 - 13.8 % 11/06/2023 12:19 AM [facility] NRBC% auto 0.6 % 11/06/2023 12:19 AM [facility] NRBC Absolute 0.08(H) 0.00 - 0.00 x10(3)/mc L 11/06/2023 12:19 AM [facility] Neutrophil % 81.1 % 11/06/2023 12:19 AM EDT [facility] Neutrophil Absolute (ANC) - Automated 10.54(H) 1.70 - 6.10 x10(3)/mc L 11/06/2023 12:19 AM EDT [facility] Lymph % 7.2 % 11/06/2023 12:19 AM EDT [facility] Lymph Absolute 0.94 0.90 - 3.20 x10(3)/mc L 11/06/2023 12:19 AM EDT [facility] Monocyte % 7.3 % 11/06/2023 12:19 AM EDT [facility] Monocyte Absolute 0.95(H) 0.30 - 0.90 x10(3)/mc L 11/06/2023 12:19 AM EDT [facility] Eos % 1.2 % 11/06/2023 12:19 AM EDT [facility] Eos Absolute 0.15 0.00 - 0.40 x10(3)/mc L 11/06/2023 12:19 AM EDT [facility] Basophil % 0.3 % 11/06/2023 12:19 AM EDT [facility] Baso Absolute 0.04 0.00 - 0.10 x10(3)/mc L 11/06/2023 12:19 AM EDT [facility] Immature Gran % 2.9 % 12:19 AM EDT [facility] Immature Gran Absolute 0.38(H) 0.00 - 0.04 x10(3)/mc L 11/06/2023 12:19 AM EDT [facility] Blood VENOUS BLOOD SPECIMEN / Unknown IP Care Team Draw / Unknown 11/06/2023 12:01 AM EDT 11/06/2023 12:15 AM EDT Timi Person MD HEMATOLOGY ORDERABL ES [facility] [place] [address] * (ABNORMAL) Basic Metabolic Panel (11/06/2023 12:01 AM [facility]) Glucose 184 65 - 199 mg/dL 11/06/2023 12:41 AM [facility] Comment:Glucose Concentratio n >=200 mg/dL plus symptoms is consistent with Diabetes Mellitus. Blood Urea Nitrogen 83(H) 10 - 20 mg/dL 11/06/2023 12:41 AM [facility] Creatinine 5.61(H) 0.80 - 1.50 mg/dL 11/06/2023 12:41 AM [facility] Sodium 143 135 - 145 mMol/L 11/06/2023 12:41 AM [facility] Potassium 3.5 3.5 - 5.0 mMol/L 11/06/2023 12:41 AM [facility] Chloride 105 98 - 107 mMol/L 11/06/2023 12:41 AM [facility] Carbon Dioxide 18(L) 22 - 31 mMol/L 11/06/2023 12:41 AM [facility] Anion Gap 20(H) 5 - 15 mMol/L 11/06/2023 12:41 AM [facility] Calcium 7.6(L) 8.5 - 10.5 mg/dL 11/06/2023 12:41 AM [facility] Est Glomerular Filtration Rate - Male 12 mL/min/1. 73 m?? 11/06/2023 12:41 AM [facility] Comment: This patient's estimated GFR [...] IP Care Team Draw / Unknown 11/06/2023 12:01 AM EDT 11/06/2023 12:15 AM EDT Timi Person MD CHEMISTRY ORDERABLE S Performing Organization Address City/[facility]/ZIP Co de Phone Number [facility] [place] [address] * (ABNORMAL) Phosphorus (11/06/2023 12:01 AM EDT) Phosphorus 9.0(H) 2.5 - 4.5 mg/dL 11/06/2023 12:41 AM EDT [facility] Blood VENOUS BLOOD SPECIMEN / Unknown IP Care Team Draw / Unknown 11/06/2023 12:01 AM EDT 11/06/2023 12:15 AM EDT Timi Person MD CHEMISTRY ORDERABLE S [facility] [place] [address] * Magnesium (11/06/2023 12:01 AM EDT) Magnesium 1.02 0.69 - 1.07 mMol/L 11/06/2023 12:41 AM EDT [facility] Blood VENOUS BLOOD SPECIMEN / Unknown IP Care Team Draw / Unknown 11/06/2023 12:01 AM EDT 11/06/2023 12:15 AM EDT Timi Person MD CHEMISTRY ORDERABLE S [facility] [place] [address] * (ABNORMAL) Blood Gas, Arterial POC (11/06/2023 12:00 AM EDT) pH, Arterial 7.40 7.35 - 7.45 11/06/2023 12:02 AM EDT [facility] PCO2, Arterial 36 35 - 45 mmHg 11/06/2023 12:02 AM [facility] PO2, Arterial 99 85 - 104 mmHg 11/06/2023 12:02 AM [facility] Bicarbonate, Arterial 21.7 20.0 - 26.0 mmol/L 11/06/2023 12:02 AM [facility] Base Excess, Arterial -3.1(L) -3.0 - 3.0 mmol/L 11/06/2023 12:02 AM [facility] Hemoglobin, Arterial 9.4(L) 13.7 - 16.5 g/dL 11/06/2023 12:02 AM [facility] Oxyhemoglobin, Arterial 96.0 94.0 - 97.0 % 11/06/2023 12:02 AM [facility] Carboxyhemoglobin , Arterial 0.3 % 11/06/2023 12:02 AM [facility] Comment: Nonsmokers: 0.5-1.5% COHB ?? Smokers: Variable ??but usually less than 10% ?? Toxic: 20-30% COHB ?? Lethal: Greater than 60% COHB Methemoglobin, Arterial 0.3 <=1.5 % 11/06/2023 12:02 AM [facility] Sodium, Arterial 140 135 - 145 mmol/L 11/06/2023 12:02 AM [facility] Potassium, Arterial 3.7 3.5 - 5.0 mmol/L 11/06/2023 12:02 AM [facility] Chloride, Arterial 104 98 - 107 mmol/L 11/06/2023 12:02 AM [facility] Lactate, Arterial 1.2 0.5 - 2.2 mmol/L 11/06/2023 12:02 AM [facility] Fraction of Inspired Oxygen 60 % 11/06/2023 12:02 AM [facility] PF Ratio 165 Ratio 11/06/2023 12:02 AM [facility] Comment:PF ratio calculated using the non-temperature corrected pO2 result. IONIZED CALCIUM, ARTERIAL 1.06(L) 1.15 - 1.33 mmol/L 11/06/2023 12:02 AM EDT [facility] Glucose, Arterial 197 65 - 199 mg/dL 11/06/2023 12:02 AM EDT [facility] Comment:Glucose Concentratio n >=200 mg/dL plus symptoms is consistent with Diabetes Mellitus. Blood ARTERIAL BLOOD / Unknown 11/06/2023 12:00 AM EDT 11/06/2023 12:02 AM EDT Timi Person MD POINT OF CARE TEST ORDERABLES Performing Organization Address City/[facility]/ZIP Co de Phone Number [facility] [place] [address] * Prepare RBC (11/05/2023 10:03 PM EDT) Status Information Transfused [facility] Product Identification RBC [facility] Unit Number [id number] [facility] Product Code [id number] [facility] Unit Blood Type OPOS [facility] Specimen Expiration Date [id number] [facility] Volulme 350 [facility] Issue Date / Time [id number] [facility] Blood 11/05/2023 8:4 8 AM EDT Timi Person MD BLOOD BANK PRODUCT ORDERABLES [facility] [place] [address] * (ABNORMAL) Blood Gas, Arterial POC (11/05/2023 8:06 PM EDT) pH, Arterial 7.40 7.35 - 7.45 11/05/2023 8:07 PM EDT [facility] PCO2, Arterial 32(L) 35 - 45 mmHg 11/05/2023 8:07 PM EDT [facility] PO2, Arterial 111(H) 85 - 104 mmHg 11/05/2023 8:07 PM [facility] Bicarbonate, Arterial 19.3(L) 20.0 - 26.0 mmol/L 11/05/2023 8:07 PM [facility] Base Excess, Arterial -5.4(L) -3.0 - 3.0 mmol/L 11/05/2023 8:07 PM [facility] Hemoglobin, Arterial 9.4(L) 13.7 - 16.5 g/dL 11/05/2023 8:07 PM [facility] Oxyhemoglobin, Arterial 97.1(H) 94.0 - 97.0 % 11/05/2023 8:07 PM [facility] Carboxyhemoglobin , Arterial 0.1 % 11/05/2023 8:07 PM [facility] Comment: Nonsmokers: 0.5-1.5% COHB ?? Smokers: Variable ??but usually less than 10% ?? Toxic: 20-30% COHB ?? Lethal: Greater than 60% COHB Methemoglobin, Arterial 0.3 <=1.5 % 11/05/2023 8:07 PM [facility] Sodium, Arterial 139 135 - 145 mmol/L 11/05/2023 8:07 PM [facility] Potassium, Arterial 3.8 3.5 - 5.0 mmol/L 11/05/2023 8:07 PM [facility] Chloride, Arterial 104 98 - 107 mmol/L 11/05/2023 8:07 PM [facility] Lactate, Arterial 1.1 0.5 - 2.2 mmol/L 11/05/2023 8:07 PM [facility] Fraction of Inspired Oxygen 80 % 11/05/2023 8:07 PM [facility] PF Ratio 139 Ratio 11/05/2023 8:07 PM [facility] Comment:PF ratio calculated using the non-temperature corrected pO2 result. IONIZED CALCIUM, ARTERIAL 1.06(L) 1.15 - 1.33 mmol/L 11/05/2023 8:07 PM EDT [facility] Glucose, Arterial 199 65 - 199 mg/dL 11/05/2023 8:07 PM EDT [facility] Comment:Glucose Concentratio n >=200 mg/dL plus symptoms is consistent with Diabetes Mellitus. Blood ARTERIAL BLOOD / Unknown 11/05/2023 8:06 PM EDT 11/05/2023 8:07 PM EDT Timi Person MD POINT OF CARE TEST ORDERABLES [facility] [place] [address] * (ABNORMAL) Blood Gas, Arterial POC (11/05/2023 5:52 PM EDT) pH, Arterial 7.37 7.35 - 7.45 11/05/2023 5:53 PM EDT [facility] PCO2, Arterial 36 35 - 45 mmHg 11/05/2023 5:53 PM EDT [facility] PO2, Arterial 191(H) 85 - 104 mmHg 11/05/2023 5:53 PM EDT [facility] Bicarbonate, Arterial 20.4 20.0 - 26.0 mmol/L 11/05/2023 5:53 PM EDT [facility] Base Excess, Arterial -4.8(L) -3.0 - 3.0 mmol/L 11/05/2023 5:53 PM EDT [facility] Hemoglobin, Arterial 9.2(L) 13.7 - 16.5 g/dL 11/05/2023 5:53 PM EDT [facility] Oxyhemoglobin, Arterial 98.3(H) 94.0 - 97.0 % 11/05/2023 5:53 PM EDT [facility] Carboxyhemoglobin , Arterial 0.3 % 11/05/2023 5:53 PM EDT [facility] Comment: Nonsmokers: 0.5-1.5% COHB ?? Smokers: Variable ??but usually less than 10% ?? Toxic: 20-30% COHB ?? Lethal: Greater than 60% COHB Methemoglobin, Arterial 0.3 <=1.5 % 11/05/2023 5:53 PM EDT [facility] Sodium, Arterial 141 135 - 145 mmol/L 11/05/2023 5:53 PM EDT [facility] Potassium, Arterial 3.6 3.5 - 5.0 mmol/L 11/05/2023 5:53 PM EDT [facility] Chloride, Arterial 105 98 - 107 mmol/L 11/05/2023 5:53 PM EDT [facility] Lactate, Arterial 1.2 0.5 - 2.2 mmol/L 11/05/2023 5:53 PM EDT [facility] Fraction of Inspired Oxygen 100 % 11/05/2023 5:53 PM EDT [facility] PF Ratio 191 Ratio 11/05/2023 5:53 PM EDT [facility] Comment:PF ratio calculated using the non-temperature corrected pO2 result. IONIZED CALCIUM, ARTERIAL 1.04(L) 1.15 - 1.33 mmol/L 11/05/2023 5:53 PM EDT [facility] Glucose, Arterial 195 65 - 199 mg/dL 11/05/2023 5:53 PM EDT [facility] Comment:Glucose Concentratio n >=200 mg/dL plus symptoms is consistent with Diabetes Mellitus. Blood ARTERIAL BLOOD / Unknown 11/05/2023 5:52 PM EDT 11/05/2023 5:53 PM EDT Timi Person MD POINT OF CARE TEST ORDERABLES [facility] [place] [address] * (ABNORMAL) Blood Gas, Arterial POC (11/05/2023 4:03 PM EDT) pH, Arterial 7.38 7.35 - 7.45 11/05/2023 4:04 PM [facility] PCO2, Arterial 34(L) 35 - 45 mmHg 11/05/2023 4:04 PM [facility] PO2, Arterial 103 85 - 104 mmHg 11/05/2023 4:04 PM [facility] Bicarbonate, Arterial 19.3(L) 20.0 - 26.0 mmol/L 11/05/2023 4:04 PM [facility] Base Excess, Arterial -5.9(L) -3.0 - 3.0 mmol/L 11/05/2023 4:04 PM [facility] Hemoglobin, Arterial 11.1(L) 13.7 - 16.5 g/dL 11/05/2023 4:04 PM [facility] Oxyhemoglobin, Arterial 96.4 94.0 - 97.0 % 11/05/2023 4:04 PM [facility] Carboxyhemoglobin , Arterial 0.3 % 11/05/2023 4:04 PM [facility] Comment: Nonsmokers: 0.5-1.5% COHB ?? Smokers: Variable ??but usually less than 10% ?? Toxic: 20-30% COHB ?? Lethal: Greater than 60% COHB Methemoglobin, Arterial 0.3 <=1.5 % 11/05/2023 4:04 PM [facility] Sodium, Arterial 139 135 - 145 mmol/L 11/05/2023 4:04 PM [facility] Potassium, Arterial 3.8 3.5 - 5.0 mmol/L 11/05/2023 4:04 PM [facility] Chloride, Arterial 103 98 - 107 mmol/L 11/05/2023 4:04 PM [facility] Lactate, Arterial 1.2 0.5 - 2.2 mmol/L 11/05/2023 4:04 PM [facility] Fraction of Inspired Oxygen 100 % 11/05/2023 4:04 PM [facility] PF Ratio 103 Ratio 11/05/2023 4:04 PM EDT [facility] Comment:PF ratio calculated using the non-temperature corrected pO2 result. IONIZED CALCIUM, ARTERIAL 1.08(L) 1.15 - 1.33 mmol/L 11/05/2023 4:04 PM EDT [facility] Glucose, Arterial 203(H) 65 - 199 mg/dL 11/05/2023 4:04 PM EDT [facility] Comment:Glucose Concentratio n >=200 mg/dL plus symptoms is consistent with Diabetes Mellitus. Blood ARTERIAL BLOOD / Unknown 11/05/2023 4:03 PM EDT 11/05/2023 4:04 PM EDT Timi Person MD POINT OF CARE TEST ORDERABLES [facility] [place] [address] * XR Chest One View (11/05/2023 3:02 PM EDT) [employer] WORKSTATION ID [id number] DH RAD Anatomical Region Laterality Modality Chest N/A Digital Radiogra phy Impressions 11/05/2023 4:40 PM EDT 1. ??No significant change in bibasilar opacities, left greater than right. Differential includes any combination of atelectasis, pneumonia, or edema. 2. ??Unchanged support equipment, as detailed. Thank you for letting us participate in the care of this patient. ??If you are a health care provider and have any questions regarding this report, please contact the number below. ??For patients who have questions please contact the health personal care assistant that requested your imaging first. ? Narrative 11/05/2023 4:40 PM EDT EXAMINATION: XR CHEST ONE VIEW CLINICAL HISTORY: change in oxygen requirment TECHNIQUE: 1 view of the chest ; AP portable 45 degrees upright COMPARISON: Chest radiograph 11/05/2023, CT chest 11/02/2023 FINDINGS: ET tube 3.0 cm above steve, unchanged. Right IJ CVC terminates overlying the superior cavoatrial junction, unchanged. Enteric catheter descends below the level diaphragm and below the [id number]. Sternotomy cables and external monitoring leads are present. Low lung volumes. Bilateral left greater than right basilar opacities with air bronchograms are similar to prior. No new airspace opacity. No pneumothorax or pleural effusion. The cardiomediastinal contours are unchanged. Pulmonary vascular markings are similar to prior allowing for differences in projection. No acute osseous finding. Procedure Note Jg Barker MD - 11/05/2023 EXAMINATION: XR CHEST ONE VIEW CLINICAL HISTORY: change in oxygen requirment TECHNIQUE: 1 view of the chest ; AP portable 45 degrees upright COMPARISON: Chest radiograph 11/05/2023, CT chest 11/02/2023 FINDINGS: ET tube 3.0 cm above steve, unchanged. Right IJ CVC terminates overlying the superior cavoatrial junction,unchanged. Enteric catheter descends below the level diaphragm and below [id number]. Sternotomy cables and external monitoring leads are present. Low lung volumes. Bilateral left greater than right basilar opacities withair bronchograms are similar to prior. No new airspace opacity. Nopneumothorax or pleural effusion. The cardiomediastinal contours are unchanged.Pulmonary vascular markings are similar to prior allowing for differences inprojection. No acute osseous finding. IMPRESSION 1. No significant change in bibasilar opacities, left greater thanright. Differential includes any combination of atelectasis, pneumonia, oredema. 2. Unchanged support equipment, as detailed. Thank you for letting us participate in the care of this patient. If youare a health care provider and have any questions regarding this report,please contact the number below. For patients who have questions please contactthe health personal care assistant that requested your imaging first. Timi Person MD IMG DX ORDERABLES * (ABNORMAL) Blood Gas, Arterial POC (11/05/2023 2:11 PM EDT) pH, Arterial 7.33(L) 7.35 - 7.45 11/05/2023 2:15 PM EDT [facility] PCO2, Arterial 32(L) 35 - 45 mmHg 11/05/2023 2:15 PM EDT [facility] PO2, Arterial 130(H) 85 - 104 mmHg 11/05/2023 2:15 PM EDT [facility] Bicarbonate, Arterial 16.5(L) 20.0 - 26.0 mmol/L 11/05/2023 2:15 PM EDT [facility] Base Excess, Arterial -9.5(L) -3.0 - 3.0 mmol/L 11/05/2023 2:15 PM EDT [facility] Hemoglobin, Arterial 9.6(L) 13.7 - 16.5 g/dL 11/05/2023 2:15 PM EDT [facility] Oxyhemoglobin, Arterial 97.5(H) 94.0 - 97.0 % 11/05/2023 2:15 PM EDT [facility] Carboxyhemoglobin , Arterial 0.1 % 11/05/2023 2:15 PM EDT [facility] Comment: Nonsmokers: 0.5-1.5% COHB ?? Smokers: Variable ??but usually less than 10% ?? Toxic: 20-30% COHB ?? Lethal: Greater than 60% COHB Methemoglobin, Arterial 0.3 <=1.5 % 11/05/2023 2:15 PM EDT [facility] Sodium, Arterial 139 135 - 145 mmol/L 11/05/2023 2:15 PM EDT [facility] Potassium, Arterial 4.0 3.5 - 5.0 mmol/L 11/05/2023 2:15 PM EDT [facility] Chloride, Arterial 104 98 - 107 mmol/L 11/05/2023 2:15 PM EDT [facility] Lactate, Arterial 1.0 0.5 - 2.2 mmol/L 11/05/2023 2:15 PM EDT [facility] Fraction of Inspired Oxygen 100 % 11/05/2023 2:15 PM EDT [facility] PF Ratio 130 Ratio 11/05/2023 2:15 PM EDT [facility] Comment:PF ratio calculated using the non-temperature corrected pO2 result. IONIZED CALCIUM, ARTERIAL 1.08(L) 1.15 - 1.33 mmol/L 11/05/2023 2:15 PM EDT [facility] Glucose, Arterial 174 65 - 199 mg/dL 11/05/2023 2:15 PM EDT [facility] Comment:Glucose Concentratio n >=200 mg/dL plus symptoms is consistent with Diabetes Mellitus. Blood ARTERIAL BLOOD / Unknown 11/05/2023 2:11 PM EDT 11/05/2023 2:15 PM EDT Timi Person MD POINT OF CARE TEST ORDERABLES [facility] [place] [address] * (ABNORMAL) Blood Gas, Arterial POC (11/05/2023 12:03 PM EDT) pH, Arterial 7.33(L) 7.35 - 7.45 11/05/2023 12:04 PM EDT [facility] PCO2, Arterial 38 35 - 45 mmHg 11/05/2023 12:04 PM EDT [facility] PO2, Arterial 95 85 - 104 mmHg 11/05/2023 12:04 PM EDT [facility] Bicarbonate, Arterial 19.1(L) 20.0 - 26.0 mmol/L 11/05/2023 12:04 PM [facility] Base Excess, Arterial -6.9(L) -3.0 - 3.0 mmol/L 11/05/2023 12:04 PM [facility] Hemoglobin, Arterial 9.6(L) 13.7 - 16.5 g/dL 11/05/2023 12:04 PM [facility] Oxyhemoglobin, Arterial 95.6 94.0 - 97.0 % 11/05/2023 12:04 PM [facility] Carboxyhemoglobin , Arterial 0.3 % 11/05/2023 12:04 PM [facility] Comment: Nonsmokers: 0.5-1.5% COHB ?? Smokers: Variable ??but usually less than 10% ?? Toxic: 20-30% COHB ?? Lethal: Greater than 60% COHB Methemoglobin, Arterial 0.3 <=1.5 % 11/05/2023 12:04 PM [facility] Sodium, Arterial 140 135 - 145 mmol/L 11/05/2023 12:04 PM [facility] Potassium, Arterial 4.0 3.5 - 5.0 mmol/L 11/05/2023 12:04 PM [facility] Chloride, Arterial 104 98 - 107 mmol/L 11/05/2023 12:04 PM [facility] Lactate, Arterial 1.1 0.5 - 2.2 mmol/L 11/05/2023 12:04 PM [facility] Fraction of Inspired Oxygen 40 % 11/05/2023 12:04 PM [facility] PF Ratio 238 Ratio 11/05/2023 12:04 PM [facility] Comment:PF ratio calculated using the non-temperature corrected pO2 result. IONIZED CALCIUM, ARTERIAL 1.07(L) 1.15 - 1.33 mmol/L 11/05/2023 12:04 PM [facility] Glucose, Arterial 181 65 - 199 mg/dL 11/05/2023 12:04 PM EDT [facility] Comment:Glucose Concentratio n >=200 mg/dL plus symptoms is consistent with Diabetes Mellitus. Blood ARTERIAL BLOOD / Unknown 11/05/2023 12:03 PM EDT 11/05/2023 12:04 PM EDT Timi Person MD POINT OF CARE TEST ORDERABLES Performing Organization Address City/[facility]/ZIP Co de Phone Number [facility] [place] [address] * (ABNORMAL) Phosphorus (11/05/2023 12:01 PM EDT) Phosphorus 10.5(HHH) 2.5 - 4.5 mg/dL 11/05/2023 1:05 PM EDT [facility] Blood VENOUS BLOOD SPECIMEN / Unknown IP Care Team Draw / Unknown 11/05/2023 12:01 PM EDT 11/05/2023 12:17 PM EDT Calos Lazo MD CHEMISTRY ORDERABLES Performing Organization Address City/[facility] Co de Phone Number [facility] [place] [address] * (ABNORMAL) Magnesium (11/05/2023 12:01 PM EDT) Magnesium 1.08(H) 0.69 - 1.07 mMol/L 11/05/2023 12:47 PM EDT [facility] Blood VENOUS BLOOD SPECIMEN / Unknown IP Care Team Draw / Unknown 11/05/2023 12:01 PM EDT 11/05/2023 12:17 PM EDT Calos Lazo MD CHEMISTRY ORDERABLES Performing Organization Address City/[facility]/ZIP Co de Phone Number [facility] [place] [address] * (ABNORMAL) Creatinine (11/05/2023 12:01 PM EDT) Creatinine 5.90(H) 0.80 - 1.50 mg/dL 11/05/2023 12:47 PM EDT [facility] Est Glomerular Filtration Rate - Male 11 mL/min/1. 73 m?? 11/05/2023 12:47 PM EDT [facility] Comment: This patient's estimated GFR [...] IP Care Team Draw / Unknown 11/05/2023 12:01 PM EDT 11/05/2023 12:17 PM EDT Calos Lazo MD CHEMISTRY ORDERABLES [facility] [place] [address] * (ABNORMAL) BUN (11/05/2023 12:01 PM EDT) Blood Urea Nitrogen 83(H) 10 - 20 mg/dL 11/05/2023 12:47 PM EDT [facility] Blood VENOUS BLOOD SPECIMEN / Unknown IP Care Team Draw / Unknown 11/05/2023 12:01 PM EDT 11/05/2023 12:17 PM EDT Calos Lazo MD CHEMISTRY ORDERABLES [facility] [place] [address] * (ABNORMAL) Electrolytes panel (11/05/2023 12:01 PM EDT) Sodium 141 135 - 145 mMol/L 11/05/2023 12:47 PM EDT [facility] Potassium 4.1 3.5 - 5.0 mMol/L 11/05/2023 12:47 PM EDT [facility] Chloride 103 98 - 107 mMol/L 11/05/2023 12:47 PM EDT [facility] Carbon Dioxide 19(L) 22 - 31 mMol/L 11/05/2023 12:47 PM EDT [facility] Anion Gap 19(H) 5 - 15 mMol/L 11/05/2023 12:47 PM EDT [facility] Blood VENOUS BLOOD SPECIMEN / Unknown IP Care Team Draw / Unknown 11/05/2023 12:01 PM EDT 11/05/2023 12:17 PM EDT Calos Lazo MD CHEMISTRY ORDERABLES [facility] [place] [address] * XR Chest One View (11/05/2023 11:53 AM EDT) [employer] WORKSTATION ID [id number] DH RAD Anatomical Region Laterality Modality Chest N/A Digital Radiogra phy Impressions 11/05/2023 1:38 PM EDT 1. ??Right IJ CVC terminates overlying the superior cavoatrial junction. 2. ??Bibasilar atelectasis. Superimposed infection not excluded. 3. ??Additional supportive equipment, as detailed. Thank you for letting us participate in the care of this patient. ??If you are a health care provider and have any questions regarding this report, please contact the number below. ??For patients who have questions please contact the health personal care assistant that requested your imaging first. ? Narrative 11/05/2023 1:38 PM EDT EXAMINATION: XR CHEST ONE VIEW CLINICAL HISTORY: s/p rij hd line placement TECHNIQUE: 1 view of the chest ; AP portable 60 degrees upright COMPARISON: CT chest 11/02/2023, chest radiograph 11/02/2023, 10/31/2023 FINDINGS: ET tube measures 3.5 cm above steve. Right IJ CVC tip projects overlying the superior cavoatrial junction. Enteric catheter descends below the level diaphragm and below the byziw-[id number]. Multiple external monitoring leads and partially visualized sternotomy cables are present. Linear opacity at the right base as well as bilateral medial airspace opacities with air bronchograms consistent with atelectasis as seen on recent CT chest 11/02/2023. No pneumothorax or pleural effusion. The cardiomediastinal contours and silvana are unchanged. No acute osseous finding. Procedure Note Jg Barker MD - 11/05/2023 EXAMINATION: XR CHEST ONE VIEW CLINICAL HISTORY: s/p rij hd line placement TECHNIQUE: 1 view of the chest ; AP portable 60 degrees upright COMPARISON: CT chest 11/02/2023, chest radiograph 11/02/2023, 10/31/2023 FINDINGS: ET tube measures 3.5 cm above steve. Right IJ CVC tip projects overlying the superior cavoatrial junction. Enteric catheter descends below the level diaphragm and below [id number]. Multiple external monitoring leads and partially visualized sternotomycables are present. Linear opacity at the right base as well as bilateral medial airspaceopacities with air bronchograms consistent with atelectasis as seen on recent CTchest 11/02/2023. No pneumothorax or pleural effusion. The cardiomediastinalcontours and silvana are unchanged. No acute osseous finding. IMPRESSION 1. Right IJ CVC terminates overlying the superior cavoatrial junction. 2. Bibasilar atelectasis. Superimposed infection not excluded. 3. Additional supportive equipment, as detailed. Thank you for letting us participate in the care of this patient. If youare a health care provider and have any questions regarding this report,please contact the number below. For patients who have questions please contactthe health personal care assistant that requested your imaging first. Timi Person MD IMG DX ORDERABLES * Transfuse RBC (11/05/2023 11:51 AM EDT) Timi Person MD NURSING TREATMENT O RDERABLES - BLOOD ADMIN * Transfuse RBC (11/05/2023 11:51 AM EDT) Timi Person MD NURSING TREATMENT O RDERABLES - BLOOD ADMIN * POC, GLUCOSE (11/05/2023 9:26 AM EDT) Glucometer, POC 198 65 - 199 mg/dL 11/05/2023 9:26 AM EDT [facility] Comment:Supplemental ranges: <140 mg/dL before meals <180 mg/dL all other times of the day. Blood CAPILLARY BLOOD / Unknown 11/05/2023 9:26 AM EDT 11/05/2023 9:26 AM EDT Timi Person MD POINT OF CARE TEST ORDERABLES [facility] [place] [address] * POC, GLUCOSE (11/05/2023 5:50 AM EDT) Glucometer, POC 162 65 - 199 mg/dL 11/05/2023 5:50 AM EDT [facility] Comment:Supplemental ranges: <140 mg/dL before meals <180 mg/dL all other times of the day. Blood CAPILLARY BLOOD / Unknown 11/05/2023 5:50 AM EDT 11/05/2023 5:50 AM EDT Timi Person MD POINT OF CARE TEST ORDERABLES Performing Organization Address City/[facility]/ZIP Co de Phone Number [facility] [place] [address] * Potassium (11/05/2023 4:51 AM EDT) Potassium 4.0 3.5 - 5.0 mMol/L 11/05/2023 5:35 AM EDT [facility] Blood VENOUS BLOOD SPECIMEN / Unknown IP Care Team Draw / Unknown 11/05/2023 4:51 AM EDT 11/05/2023 5:05 AM EDT Timi Person MD CHEMISTRY ORDERABLE S Performing Organization Address City/[facility] Co de Phone Number [facility] [place] [address] * (ABNORMAL) CK (11/05/2023 4:51 AM EDT) Creatine Kinase 2,283(H) 0 - 200 unit/L 11/05/2023 5:47 AM EDT [facility] Blood VENOUS BLOOD SPECIMEN / Unknown IP Care Team Draw / Unknown 11/05/2023 4:51 AM EDT 11/05/2023 5:05 AM EDT Timi Person MD CHEMISTRY ORDERABLE S Performing Organization Address City/[facility]/ZIP Co de Phone Number [facility] [place] [address] * POC, GLUCOSE (11/05/2023 4:18 AM EDT) Glucometer, POC 169 65 - 199 mg/dL 11/05/2023 4:18 AM EDT [facility] Comment:Supplemental ranges: <140 mg/dL before meals <180 mg/dL all other times of the day. Blood CAPILLARY BLOOD / Unknown 11/05/2023 4:18 AM EDT 11/05/2023 4:18 AM EDT Timi Person MD POINT OF CARE TEST ORDERABLES [facility] [address] * (ABNORMAL) Blood Gas, Arterial POC (11/05/2023 2:14 AM EDT) pH, Arterial 7.38 7.35 - 7.45 11/05/2023 2:15 AM EDT [facility] PCO2, Arterial 34(L) 35 - 45 mmHg 11/05/2023 2:15 AM EDT [facility] PO2, Arterial 108(H) 85 - 104 mmHg 11/05/2023 2:15 AM EDT [facility] Bicarbonate, Arterial 19.8(L) 20.0 - 26.0 mmol/L 11/05/2023 2:15 AM EDT [facility] Base Excess, Arterial -5.3(L) -3.0 - 3.0 mmol/L 11/05/2023 2:15 AM EDT [facility] Hemoglobin, Arterial 7.0(L) 13.7 - 16.5 g/dL 11/05/2023 2:15 AM EDT [facility] Oxyhemoglobin, Arterial 96.6 94.0 - 97.0 % 11/05/2023 2:15 AM EDT [facility] Carboxyhemoglobin , Arterial 0.1 % 11/05/2023 2:15 AM EDT [facility] Comment: Nonsmokers: 0.5-1.5% COHB ?? Smokers: Variable ??but usually less than 10% ?? Toxic: 20-30% COHB ?? Lethal: Greater than 60% COHB Methemoglobin, Arterial 0.3 <=1.5 % 11/05/2023 2:15 AM EDT [facility] Sodium, Arterial 139 135 - 145 mmol/L 11/05/2023 2:15 AM EDT [facility] Potassium, Arterial 4.0 3.5 - 5.0 mmol/L 11/05/2023 2:15 AM EDT [facility] Chloride, Arterial 104 98 - 107 mmol/L 11/05/2023 2:15 AM EDT [facility] Lactate, Arterial 1.1 0.5 - 2.2 mmol/L 11/05/2023 2:15 AM EDT [facility] Fraction of Inspired Oxygen 40 % 11/05/2023 2:15 AM EDT [facility] PF Ratio 270 Ratio 11/05/2023 2:15 AM EDT [facility] Comment:PF ratio calculated using the non-temperature corrected pO2 result. IONIZED CALCIUM, ARTERIAL 1.03(L) 1.15 - 1.33 mmol/L 11/05/2023 2:15 AM EDT [facility] Glucose, Arterial 151 65 - 199 mg/dL 11/05/2023 2:15 AM EDT [facility] Comment:Glucose Concentratio n >=200 mg/dL plus symptoms is consistent with Diabetes Mellitus. Blood ARTERIAL BLOOD / Unknown 11/05/2023 2:14 AM EDT 11/05/2023 2:15 AM EDT Timi Person MD POINT OF CARE TEST ORDERABLES [facility] [place] [address] * (ABNORMAL) CBC (with Diff) (11/05/2023 12:08 AM EDT) White Blood Cell 11.20(H) 4.00 - 9.50 x10(3)/mc L 11/05/2023 12:27 AM EDT [facility] Red Blood Cell 3.47(L) 4.58 - 5.54 x10(6)/mc L 11/05/2023 12:27 AM EDT [facility] Hemoglobin 7.3(L) 13.7 - 16.5 g/dL 11/05/2023 12:27 AM EDT [facility] Hematocrit 23.0(L) 40.5 - 48.5 % 11/05/2023 12:27 AM [facility] Mean Cell Volume 66.3(L) 82.9 - 93.1 fL 11/05/2023 12:27 AM [facility] Mean Cell Hemoglobin 21.0(L) 27.5 - 32.1 pg 11/05/2023 12:27 AM [facility] Mean Cell Hemoglobin Concentration 31.7(L) 32.0 - 35.7 g/dL 11/05/2023 12:27 AM [facility] Platelet 242 145 - 357 x10(3)/mc L 11/05/2023 12:27 AM [facility] Mean Platelet Volume 11.1 7.6 - 12.9 fL 11/05/2023 12:27 AM [facility] RDW Standard Deviation 43.4 36.0 - 45.0 fL 11/05/2023 12:27 AM [facility] RDW coefficient of variation 18.5(H) 11.4 - 13.8 % 11/05/2023 12:27 AM [facility] NRBC% auto 0.9 % 11/05/2023 12:27 AM [facility] NRBC Absolute 0.10(H) 0.00 - 0.00 x10(3)/mc L 11/05/2023 12:27 AM [facility] Neutrophil % 82.7 % 11/05/2023 12:27 AM [facility] Neutrophil Absolute (ANC) - Automated 9.25(H) 1.70 - 6.10 x10(3)/mc L 11/05/2023 12:27 AM [facility] Lymph % 6.5 % 11/05/2023 12:27 AM [facility] Lymph Absolute 0.73(L) 0.90 - 3.20 x10(3)/mc L 11/05/2023 12:27 AM [facility] Monocyte % 6.6 % 11/05/2023 12:27 AM EDT [facility] Monocyte Absolute 0.74 0.30 - 0.90 x10(3)/mc L 11/05/2023 12:27 AM EDT [facility] Eos % 2.5 % 11/05/2023 12:27 AM EDT [facility] Eos Absolute 0.28 0.00 - 0.40 x10(3)/mc L 11/05/2023 12:27 AM EDT [facility] Basophil % 0.4 % 11/05/2023 12:27 AM EDT [facility] Baso Absolute 0.05 0.00 - 0.10 x10(3)/mc L 11/05/2023 12:27 AM EDT [facility] Immature Gran % 1.3 % 12:27 AM EDT [facility] Immature Gran Absolute 0.15(H) 0.00 - 0.04 x10(3)/mc L 11/05/2023 12:27 AM EDT [facility] Blood VENOUS BLOOD SPECIMEN / Unknown IP Care Team Draw / Unknown 11/05/2023 12:08 AM EDT 11/05/2023 12:13 AM EDT Timi ePrson MD HEMATOLOGY ORDERABL ES [facility] [place] [address] * (ABNORMAL) Basic Metabolic Panel (11/05/2023 12:08 AM EDT) Glucose 171 65 - 199 mg/dL 11/05/2023 1:09 AM EDT [facility] Comment:Glucose Concentratio n >=200 mg/dL plus symptoms is consistent with Diabetes Mellitus. Blood Urea Nitrogen 75(H) 10 - 20 mg/dL 11/05/2023 1:09 AM EDT [facility] Creatinine 5.90(H) 0.80 - 1.50 mg/dL 11/05/2023 1:09 AM T [facility] Sodium 141 135 - 145 mMol/L 11/05/2023 1:09 AM [facility] Potassium 3.7 3.5 - 5.0 mMol/L 11/05/2023 1:09 AM [facility] Chloride 102 98 - 107 mMol/L 11/05/2023 1:09 AM [facility] Carbon Dioxide 20(L) 22 - 31 mMol/L 11/05/2023 1:[facility] Anion Gap 19(H) 5 - 15 mMol/L 11/05/2023 1:09 AM [facility] Calcium 8.1(L) 8.5 - 10.5 mg/dL 11/05/2023 1:09 AM [facility] Est Glomerular Filtration Rate - Male 11 mL/min/1. 73 m?? 11/05/2023 1:09 AM [facility] Comment: This patient's estimated GFR [...] 12:08 AM EDT 11/05/2023 12:13 AM EDT Timi Person MD CHEMISTRY ORDERABLE S [facility] [place] [address] * (ABNORMAL) Phosphorus (11/05/2023 12:08 AM EDT) Pathologist [facility] Phosphorus 10.0(HHH) 2.5 - 4.5 mg/dL 11/05/2023 1:09 AM EDT [facility] Blood VENOUS BLOOD SPECIMEN / Unknown IP Care Team Draw / Unknown 11/05/2023 12:08 AM EDT 11/05/2023 12:13 AM EDT Timi Person MD CHEMISTRY ORDERABLE S [facility] [place] [address] * Magnesium (11/05/2023 12:08 AM EDT) [facility] Magnesium 1.01 0.69 - 1.07 mMol/L 11/05/2023 12:51 AM EDT [facility] Blood VENOUS BLOOD SPECIMEN / Unknown IP Care Team Draw / Unknown 11/05/2023 12:08 AM EDT 11/05/2023 12:13 AM EDT Timi Person MD CHEMISTRY ORDERABLE S [facility] [place] [address] * (ABNORMAL) CK (11/05/2023 12:08 AM EDT) [facility] Creatine Kinase 2,610(H) 0 - 200 unit/L 11/05/2023 1:09 AM EDT [facility] Blood VENOUS BLOOD SPECIMEN / Unknown IP Care Team Draw / Unknown 11/05/2023 12:08 AM EDT 11/05/2023 12:13 AM EDT Timi Person MD CHEMISTRY ORDERABLE S [facility] [place] [address] * Vancomycin Level, Random (11/05/2023 12:08 AM EDT) Pathologist [facility] Vancomycin, Random 17.9 mg/L 2023 12:51 AM EDT [facility] Comment:This level is for de termination of the patient's vancomycin [id number]-curve (AUC) value. Contact the inpatient pharmacy for interpretation. Blood VENOUS BLOOD SPECIMEN / Unknown IP Care Team Draw / Unknown 11/05/2023 12:08 AM EDT 11/05/2023 12:13 AM EDT Timi Person MD CHEMISTRY ORDERABLE S Performing Organization Address City/[facility]/ZIP Co de Phone Number [facility] [place] [address] * POC, GLUCOSE (11/05/2023 12:07 AM EDT) Glucometer, POC 182 65 - 199 mg/dL 11/05/2023 12:08 AM EDT [facility] Comment:Supplemental ranges: <140 mg/dL before meals <180 mg/dL all other times of the day. Blood CAPILLARY BLOOD / Unknown 11/05/2023 12:07 AM EDT 11/05/2023 12:08 AM EDT Timi Person MD POINT OF CARE TEST ORDERABLES Performing Organization Address [facility]/ZIP Co de Phone Number [facility] [place] [address] * Scan Doc: Lab (11/05/2023 12:00 AM EDT) Narrative 11/05/2023 12:00 AM EDT Ordered by an unspecified provider. Scanning Provider MEDIA MGR SCAN EXT O RDR/RSLT * POC, GLUCOSE (11/04/2023 10:13 PM EDT) Glucometer, POC 151 65 - 199 mg/dL 11/04/2023 10:13 PM EDT [facility] Comment:Supplemental ranges: <140 mg/dL before meals <180 mg/dL all other times of the day. Blood CAPILLARY BLOOD / Unknown 11/04/2023 10:13 PM EDT 11/04/2023 10:13 PM EDT Timi Person MD POINT OF CARE TEST ORDERABLES [facility] [place] [address] * POC, GLUCOSE (11/04/2023 8:19 PM EDT) Glucometer, POC 161 65 - 199 mg/dL 11/04/2023 8:19 PM EDT [facility] Comment:Supplemental ranges: <140 mg/dL before meals <180 mg/dL all other times of the day. Blood CAPILLARY BLOOD / Unknown 11/04/2023 8:19 PM EDT 11/04/2023 8:19 PM EDT Timi Person MD POINT OF CARE TEST ORDERABLES [facility] [place] [address] * Potassium (11/04/2023 5:15 PM EDT) Potassium 4.0 3.5 - 5.0 mMol/L 11/04/2023 6:16 PM EDT [facility] Blood VENOUS BLOOD SPECIMEN / Unknown IP Care Team Draw / Unknown 11/04/2023 5:15 PM EDT 11/04/2023 5:20 PM EDT Timi Person MD CHEMISTRY ORDERABLE S [facility] [place] [address] * (ABNORMAL) CK (11/04/2023 5:15 PM EDT) Creatine Kinase 3,171(H) 0 - 200 unit/L 11/04/2023 6:34 PM EDT [facility] Blood VENOUS BLOOD SPECIMEN / Unknown IP Care Team Draw / Unknown 11/04/2023 5:15 PM EDT 11/04/2023 5:20 PM EDT Timi Person MD CHEMISTRY ORDERABLE S [facility] [place] [address] * (ABNORMAL) Blood Gas, Arterial POC (11/04/2023 4:45 PM EDT) pH, Arterial 7.38 7.35 - 7.45 11/04/2023 4:47 PM EDT [facility] PCO2, Arterial 35 35 - 45 mmHg 11/04/2023 4:47 PM EDT [facility] PO2, Arterial 89 85 - 104 mmHg 11/04/2023 4:47 PM EDT [facility] Bicarbonate, Arterial 20.4 20.0 - 26.0 mmol/L 11/04/2023 4:47 PM EDT [facility] Base Excess, Arterial -4.6(L) -3.0 - 3.0 mmol/L 11/04/2023 4:47 PM EDT [facility] Hemoglobin, Arterial 9.3(L) 13.7 - 16.5 g/dL 11/04/2023 4:47 PM EDT [facility] Oxyhemoglobin, Arterial 95.1 94.0 - 97.0 % 11/04/2023 4:47 PM EDT [facility] Carboxyhemoglobin , Arterial 0.2 % 11/04/2023 4:47 PM EDT [facility] Comment: Nonsmokers: 0.5-1.5% COHB ?? Smokers: Variable ??but usually less than 10% ?? Toxic: 20-30% COHB ?? Lethal: Greater than 60% COHB Methemoglobin, Arterial 0.3 <=1.5 % 11/04/2023 4:47 PM EDT [facility] Sodium, Arterial 137 135 - 145 mmol/L 11/04/2023 4:47 PM EDT [facility] Potassium, Arterial 4.0 3.5 - 5.0 mmol/L 11/04/2023 4:47 PM EDT [facility] Chloride, Arterial 102 98 - 107 mmol/L 11/04/2023 4:47 PM EDT [facility] Lactate, Arterial 1.2 0.5 - 2.2 mmol/L 11/04/2023 4:47 PM EDT [facility] Fraction of Inspired Oxygen 40 % 11/04/2023 4:47 PM EDT [facility] PF Ratio 223 Ratio 11/04/2023 4:47 PM EDT [facility] Comment:PF ratio calculated using the non-temperature corrected pO2 result. IONIZED CALCIUM, ARTERIAL 1.03(L) 1.15 - 1.33 mmol/L 11/04/2023 4:47 PM EDT [facility] Glucose, Arterial 153 65 - 199 mg/dL 11/04/2023 4:47 PM EDT [facility] Comment:Glucose Concentratio n >=200 mg/dL plus symptoms is consistent with Diabetes Mellitus. Blood ARTERIAL BLOOD / Unknown 11/04/2023 4:45 PM EDT 11/04/2023 4:47 PM EDT Timi Person MD POINT OF CARE TEST ORDERABLES [facility] [place] [address] * HCV Reflex Hold (11/04/2023 4:36 PM EDT) HCV Hold Hold for Add-on 11/04/2023 6:01 PM EDT [facility] Blood VENOUS BLOOD SPECIMEN / Unknown IP Care Team Draw / Unknown 11/04/2023 4:36 PM EDT 11/04/2023 4:55 PM EDT Timi Person MD CHEMISTRY ORDERABLE S [facility] [place] [address] * Hepatitis C Antibody with Reflex (11/04/2023 4:36 PM EDT) Hepatitis C Antibody Negative Negative 11/04/2023 5:57 PM EDT [facility] Blood VENOUS BLOOD SPECIMEN / Unknown IP Care Team Draw / Unknown 11/04/2023 4:36 PM EDT 11/04/2023 4:55 PM EDT Timi Person MD CHEMISTRY ORDERABLE S [facility] [place] [address] * Hepatitis B Core Antibody, IgM (11/04/2023 4:36 PM EDT) Hepatitis B Core IgM Negative Negative 11/04/2023 5:57 PM EDT [facility] Blood VENOUS BLOOD SPECIMEN / Unknown IP Care Team Draw / Unknown 11/04/2023 4:36 PM EDT 11/04/2023 4:55 PM EDT Timi Person MD CHEMISTRY ORDERABLE S [facility] [place] [address] * Hepatitis B Surface Antigen (11/04/2023 4:36 PM EDT) Hepatitis B Surface Antigen Negative Negative 11/04/2023 5:57 PM EDT [facility] Blood VENOUS BLOOD SPECIMEN / Unknown IP Care Team Draw / Unknown 11/04/2023 4:36 PM EDT 11/04/2023 4:55 PM EDT Timi Person MD CHEMISTRY ORDERABLE S [facility] [place] [address] * (ABNORMAL) Vitamin D, 25-Hydroxy (11/04/2023 4:36 PM EDT) Vitamin D Total 25 OH 9(L) 21 - 100 ng/ml 11/04/2023 5:57 PM EDT [facility] Vitamin D Total 25 OH Interp Deficient 11/04/2023 5:57 PM EDT [facility] Blood VENOUS BLOOD SPECIMEN / Unknown IP Care Team Draw / Unknown 11/04/2023 4:36 PM EDT 11/04/2023 4:55 PM EDT Timi Person MD CHEMISTRY ORDERABLE S [facility] [place] [address] * (ABNORMAL) PTH (11/04/2023 4:36 PM EDT) Parathyroid Hormone 239(H) 15 - 65 pg/mL 11/04/2023 5:36 PM EDT [facility] Blood VENOUS BLOOD SPECIMEN / Unknown IP Care Team Draw / Unknown 11/04/2023 4:36 PM EDT 11/04/2023 4:55 PM EDT Timi Person MD CHEMISTRY ORDERABLE S [facility] [place] [address] * (ABNORMAL) Ferritin (11/04/2023 4:36 PM EDT) Ferritin 835(H) 31 - 409 ng/ml 11/04/2023 5:57 PM EDT [facility] Blood VENOUS BLOOD SPECIMEN / Unknown IP Care Team Draw / Unknown 11/04/2023 4:36 PM EDT 11/04/2023 4:55 PM EDT Timi Person MD CHEMISTRY ORDERABLE S [facility] [place] [address] * Prepare RBC (11/04/2023 2:03 PM EDT) Status Information Transfused [facility] Product Identification RBC [facility] Unit Number [id number] [facility] Product [facility] [id number] [facility] Unit Blood Type OPOS [facility] Specimen Expiration Date [facility] Volulme 350 [facility] Issue Date / Time [id number] [facility] Blood 11/03/2023 11: 44 PM EDT Timi Person MD BLOOD BANK PRODUCT ORDERABLES [facility] [place] [address] * (ABNORMAL) U Albumin/Cre Ratio (11/04/2023 11:54 AM EDT) Albumin, Urine 389.8 mg/L 11/04/2023 3:27 PM EDT [facility] Creatinine, Urine 66 mg/dL 024 3:27 PM EDT [facility] Albumin / Creatinine Ratio, Urine 591(H) 0 - 29 mcg/mg Cr 11/04/2023 3:27 PM EDT [facility] Comment: Reference Ranges: ?? <30 [...] Diabetes-2016; KDIGO: [employer] Supplements (2012) 2 ??[phone] Urine URINE SPECIMEN / Unknown Non Blood Collection / Unknown 11/04/2023 11:54 AM EDT 11/04/2023 12:31 PM EDT Timi Person MD URINE ORDERABLES [facility] [place] [address] * (ABNORMAL) Protein/Creatinine Ratio, urine (11/04/2023 11:54 AM EDT) Protein, Urine 82(H) 0 - 12 mg/dL 11/04/2023 2:58 PM EDT [facility] Creatinine, Urine 66 mg/dL 11/04/2023 2:58 PM EDT [facility] Protein / Creatinine Ratio, Urine 1.2 ratio 11/04/2023 2:58 PM EDT [facility] Urine URINE SPECIMEN / Unknown Non Blood Collection / Unknown 11/04/2023 11:54 AM EDT 11/04/2023 12:31 PM EDT Timi Person MD URINE ORDERABLES Performing Organization Address City/[facility]/ZIP Co de Phone Number [facility] [place] [address] * Sodium, urine, random (11/04/2023 11:54 AM EDT) Sodium, Urine 50 mMol/L 11/04/2023 3:28 PM EDT [facility] Urine URINE SPECIMEN / Unknown Non Blood Collection / Unknown 11/04/2023 11:54 AM EDT 11/04/2023 12:31 PM EDT Timi Person MD URINE ORDERABLES [facility] [place] [address] * (ABNORMAL) Urinalysis Microscopic (11/04/2023 11:54 AM EDT) RBC, Urine 4(H) 0 - 3 /HPF 11/04/2023 1:44 PM EDT [facility] WBC, Urine 1 0 - 3 /HPF 11/04/2023 1:44 PM EDT [facility] Squamous Epithelial Cells, Urine 18(H) 0 - 5 /HPF 11/04/2023 1:44 PM EDT [facility] Hyaline Casts, Urine 1 0 - 2 /LPF 11/04/2023 1:44 PM EDT [facility] Granular Casts, Urine 2(H) <=0 /LPF 11/04/2023 1:44 PM EDT [facility] Cell Cast, Urine <1(H) <=0 /LPF 11/04/19 24 1:44 PM EDT [facility] Comment 11/04/2023 1:44 PM EDT [facility] Comment:Interpret results wi th caution, microscopic results are from a suboptimal specimen. Bacteria, Urine Moderate( A) None /HPF 11/04/2023 1:44 PM EDT [facility] Urine URINE SPECIMEN OBTAINED VIA INDWELLING URINARY CATHETER / Unknown Non Blood Collection / Unknown 11/04/2023 11:54 AM EDT 11/04/2023 12:31 PM EDT Timi Person MD URINE ORDERABLES Performing Organization Address City/[facility]/ZIP Co de Phone Number [facility] [place] [address] * Urinalysis Microscopic Exam (11/04/2023 11:54 AM EDT) Urine Non Blood Collection / Unknown 11/04/2023 11:54 AM EDT 11/04/2023 12:31 PM EDT Timi Person MD URINE ORDERABLES [facility] [place] [address] * (ABNORMAL) Urinalysis Dipstick (11/04/2023 11:54 AM EDT) Glucose, Urine Dipstick 100 mg/dL(A) Negative 11/04/2023 1:[facility] Protein, Urine Dipstick 100 mg/dL(A) Negative 11/04/2023 1:44 PM [facility] Bilirubin, Urine Dipstick Negative Negative 11/04/2023 1:44 PM [facility] Comment:Clinical correlation required for positive Urine Bilirubin results as false positive may occur with some drugs and drug related products. If a false positive is suspected a serum total bilirubin should be considered if clinically indicated. Urobilinogen, Urine Dipstick Normal Normal, 0.2 mg/dL, 1.0 mg/dL 11/04/2023 1:44 PM [facility] pH, Urine (dipstick) 5.5 5.0 - 8.0 11/04/2023 1:44 PM [facility] Blood, Urine Dipstick Trace(A) Negative 11/04/2023 1:44 PM [facility] Ketone, Urine Dipstick Negative Negative 11/04/2023 1:44 PM [facility] Nitrite, Urine Dipstick Negative Negative 11/04/2023 1:44 PM [facility] Leukocytes, Urine Dipstick Negative Negative 11/04/2023 1:44 PM [facility] Specific Thermal Urine Automated 1.015 1.005 - 1.030 11/04/2023 1:44 PM [facility] Appearance, Urine Dipstick Turbid(A) Clear 11/04/2023 1:44 PM [facility] Color, Urine Dipstick Yellow Yellow, Dark Yellow 11/04/2023 1:44 PM [facility] CULTURE ADDED? 11/04/2023 1:44 PM [facility] Urine Non Blood Collection / Unknown 11/04/2023 11:54 AM EDT 11/04/2023 12:31 PM EDT Timi Person MD URINE ORDERABLES [facility] [place] [address] * Creatinine, urine, random (11/04/2023 11:54 AM EDT) Creatinine, Urine 64 mg/dL 11/04/2023 1:44 PM EDT [facility] Urine URINE SPECIMEN / Unknown Non Blood Collection / Unknown 11/04/2023 11:54 AM EDT 11/04/2023 12:31 PM EDT Timi Person MD URINE ORDERABLES Performing Organization Address City/[facility]/ZIP Co de Phone Number [facility] [place] [address] * Urea nitrogen, urine, random (11/04/2023 11:54 AM EDT) Urea Nitrogen, Urine 194 mg/dL 11/04/2023 1:44 PM EDT [facility] Urine URINE SPECIMEN / Unknown Non Blood Collection / Unknown 11/04/2023 11:54 AM EDT 11/04/2023 12:31 PM EDT Timi Person MD URINE ORDERABLES [facility] [place] [address] * (ABNORMAL) Blood Gas, Arterial POC (11/04/2023 11:39 AM EDT) pH, Arterial 7.40 7.35 - 7.45 11/04/2023 11:40 AM EDT [facility] PCO2, Arterial 35 35 - 45 mmHg 11/04/2023 11:40 AM EDT [facility] PO2, Arterial 91 85 - 104 mmHg 11/04/2023 11:40 AM [facility] Bicarbonate, Arterial 20.9 20.0 - 26.0 mmol/L 11/04/2023 11:40 AM [facility] Base Excess, Arterial -3.9(L) -3.0 - 3.0 mmol/L 11/04/2023 11:40 AM [facility] Hemoglobin, Arterial 7.5(L) 13.7 - 16.5 g/dL 11/04/2023 11:40 AM [facility] Oxyhemoglobin, Arterial 95.3 94.0 - 97.0 % 11/04/2023 11:40 AM [facility] Carboxyhemoglobin , Arterial 0.4 % 11/04/2023 11:40 AM [facility] Comment: Nonsmokers: 0.5-1.5% COHB ?? Smokers: Variable ??but usually less than 10% ?? Toxic: 20-30% COHB ?? Lethal: Greater than 60% COHB Methemoglobin, Arterial 0.3 <=1.5 % 11/04/2023 11:40 AM [facility] Sodium, Arterial 137 135 - 145 mmol/L 11/04/2023 11:40 AM [facility] Potassium, Arterial 3.5 3.5 - 5.0 mmol/L 11/04/2023 11:40 AM [facility] Chloride, Arterial 102 98 - 107 mmol/L 11/04/2023 11:40 AM [facility] Lactate, Arterial 1.2 0.5 - 2.2 mmol/L 11/04/2023 11:40 AM [facility] Fraction of Inspired Oxygen 40 % 11/04/2023 11:40 AM [facility] PF Ratio 228 Ratio 11/04/2023 11:40 AM [facility] Comment:PF ratio calculated using the non-temperature corrected pO2 result. IONIZED CALCIUM, ARTERIAL 0.97(L) 1.15 - 1.33 mmol/L 11/04/2023 11:40 AM EDT [facility] Glucose, Arterial 146 65 - 199 mg/dL 11/04/2023 11:40 AM EDT [facility] Comment:Glucose Concentratio n >=200 mg/dL plus symptoms is consistent with Diabetes Mellitus. Blood ARTERIAL BLOOD / Unknown 11/04/2023 11:39 AM EDT 11/04/2023 11:40 AM EDT Timi Person MD POINT OF CARE TEST ORDERABLES [facility] [place] [address] * (ABNORMAL) T3 Total (11/04/2023 9:46 AM EDT) T3 Total 38(L) 80 - 200 ng/dL 11/04/2023 3:04 PM EDT [facility] Blood VENOUS BLOOD SPECIMEN / Unknown IP Care Team Draw / Unknown 11/04/2023 9:46 AM EDT 11/04/2023 9:50 AM EDT Timi Person MD CHEMISTRY ORDERABLE S Performing Organization Address City/[facility]/ZIP Co de Phone Number [facility] [place] [address] * (ABNORMAL) T4 Total (11/04/2023 9:46 AM EDT) T4 Total 1.8(L) 4.6 - 7.9 mcg/dL 11/04/2023 3:04 PM EDT [facility] Blood VENOUS BLOOD SPECIMEN / Unknown IP Care Team Draw / Unknown 11/04/2023 9:46 AM EDT 11/04/2023 9:50 AM EDT Timi Person MD CHEMISTRY ORDERABLE S [facility] [place] [address] * (ABNORMAL) TSH (11/04/2023 9:46 AM EDT) Thyroid Stimulating Hormone 7.14(H) 0.27 - 4.20 mcIU/mL 11/04/2023 3:04 PM EDT [facility] Blood VENOUS BLOOD SPECIMEN / Unknown IP Care Team Draw / Unknown 11/04/2023 9:46 AM EDT 11/04/2023 9:50 AM EDT Timi Person MD CHEMISTRY ORDERABLE S [facility] [place] [address] * (ABNORMAL) Uric acid (11/04/2023 9:46 AM EDT) Uric Acid 12.8(H) 3.5 - 8.5 mg/dL 11/04/2023 3:04 PM EDT [facility] Blood VENOUS BLOOD SPECIMEN / Unknown IP Care Team Draw / Unknown 11/04/2023 9:46 AM EDT 11/04/2023 9:50 AM EDT Timi Person MD CHEMISTRY ORDERABLE S [facility] [place] [address] * (ABNORMAL) CK (11/04/2023 9:46 AM EDT) Creatine Kinase 3,650(H) 0 - 200 unit/L 11/04/2023 3:27 PM EDT [facility] Blood VENOUS BLOOD SPECIMEN / Unknown IP Care Team Draw / Unknown 11/04/2023 9:46 AM EDT 11/04/2023 9:50 AM EDT Timi Person MD CHEMISTRY ORDERABLE S [facility] [place] [address] * (ABNORMAL) Iron and TIBC (11/04/2023 9:46 AM EDT) Iron 14(L) 45 - 160 mcg/dL 11/04/2023 3:04 PM EDT [facility] TIBC 146(L) 250 - 450 mcg/dL 11/04/2023 3:04 PM EDT [facility] Iron Saturation 10(L) 20 - 50 % 3:04 PM EDT [facility] Blood VENOUS BLOOD SPECIMEN / Unknown IP Care Team Draw / Unknown 11/04/2023 9:46 AM EDT 11/04/2023 9:50 AM EDT Timi Person MD CHEMISTRY ORDERABLE S [facility] [place] [address] * Potassium (11/04/2023 9:46 AM EDT) Pathologist [facility] Potassium 3.7 3.5 - 5.0 mMol/L 11/04/2023 10:29 AM EDT [facility] Blood VENOUS BLOOD SPECIMEN / Unknown IP Care Team Draw / Unknown 11/04/2023 9:46 AM EDT 11/04/2023 9:50 AM EDT Timi Person MD CHEMISTRY ORDERABLE S [facility] [place] [address] * (ABNORMAL) Blood Gas, Arterial POC (11/04/2023 8:23 AM EDT) pH, Arterial 7.36 7.35 - 7.45 11/04/2023 8:25 AM EDT [facility] PCO2, Arterial 40 35 - 45 mmHg 11/04/2023 8:25 AM EDT [facility] PO2, Arterial 86 85 - 104 mmHg 11/04/2023 8:25 AM [facility] Bicarbonate, Arterial 21.9 20.0 - 26.0 mmol/L 11/04/2023 8:25 AM [facility] Base Excess, Arterial -3.6(L) -3.0 - 3.0 mmol/L 11/04/2023 8:25 AM [facility] Hemoglobin, Arterial 7.8(L) 13.7 - 16.5 g/dL 11/04/2023 8:25 AM [facility] Oxyhemoglobin, Arterial 94.1 94.0 - 97.0 % 11/04/2023 8:25 AM [facility] Carboxyhemoglobin , Arterial 0.6 % 11/04/2023 8:25 AM [facility] Comment: Nonsmokers: 0.5-1.5% COHB ?? Smokers: Variable ??but usually less than 10% ?? Toxic: 20-30% COHB ?? Lethal: Greater than 60% COHB Methemoglobin, Arterial 0.3 <=1.5 % 11/04/2023 8:25 AM [facility] Sodium, Arterial 136 135 - 145 mmol/L 11/04/2023 8:25 AM [facility] Potassium, Arterial 3.8 3.5 - 5.0 mmol/L 11/04/2023 8:25 AM [facility] Chloride, Arterial 102 98 - 107 mmol/L 11/04/2023 8:25 AM [facility] Lactate, Arterial 1.2 0.5 - 2.2 mmol/L 11/04/2023 8:25 AM [facility] Fraction of Inspired Oxygen 40 % 11/04/2023 8:25 AM [facility] PF Ratio 215 Ratio 11/04/2023 8:25 AM [facility] Comment:PF ratio calculated using the non-temperature corrected pO2 result. IONIZED CALCIUM, ARTERIAL 0.96(L) 1.15 - 1.33 mmol/L 11/04/2023 8:25 AM EDT [facility] Glucose, Arterial 171 65 - 199 mg/dL 11/04/2023 8:25 AM EDT [facility] Comment:Glucose Concentratio n >=200 mg/dL plus symptoms is consistent with Diabetes Mellitus. Blood ARTERIAL BLOOD / Unknown 11/04/2023 8:23 AM EDT 11/04/2023 8:25 AM EDT Timi Person MD POINT OF CARE TEST ORDERABLES Performing Organization Address City/[facility] Co de Phone Number [facility] [place] [address] * POC, GLUCOSE (11/04/2023 6:00 AM EDT) Glucometer, POC 129 65 - 199 mg/dL 11/04/2023 6:00 AM EDT [facility] Comment:Supplemental ranges: <140 mg/dL before meals <180 mg/dL all other times of the day. Blood CAPILLARY BLOOD / Unknown 11/04/2023 6:00 AM EDT 11/04/2023 6:00 AM EDT Timi Person MD POINT OF CARE TEST ORDERABLES Performing Organization Address [facility]/ZIP Co de Phone Number [facility] [place] [address] * (ABNORMAL) Blood Gas, Arterial POC (11/04/2023 3:32 AM EDT) pH, Arterial 7.40 7.35 - 7.45 11/04/2023 3:33 AM EDT [facility] PCO2, Arterial 34(L) 35 - 45 mmHg 11/04/2023 3:33 AM EDT [facility] PO2, Arterial 102 85 - 104 mmHg 11/04/2023 3:33 AM EDT [facility] Bicarbonate, Arterial 20.9 20.0 - 26.0 mmol/L 11/04/2023 3:33 AM [facility] Base Excess, Arterial -3.9(L) -3.0 - 3.0 mmol/L 11/04/2023 3:33 AM [facility] Hemoglobin, Arterial 7.4(L) 13.7 - 16.5 g/dL 11/04/2023 3:33 AM [facility] Oxyhemoglobin, Arterial 96.0 94.0 - 97.0 % 11/04/2023 3:33 AM [facility] Carboxyhemoglobin , Arterial 0.8 % 11/04/2023 3:33 AM [facility] Comment: Nonsmokers: 0.5-1.5% COHB ?? Smokers: Variable ??but usually less than 10% ?? Toxic: 20-30% COHB ?? Lethal: Greater than 60% COHB Methemoglobin, Arterial 0.3 <=1.5 % 11/04/2023 3:33 AM [facility] Sodium, Arterial 137 135 - 145 mmol/L 11/04/2023 3:33 AM [facility] Potassium, Arterial 3.6 3.5 - 5.0 mmol/L 11/04/2023 3:33 AM [facility] Chloride, Arterial 101 98 - 107 mmol/L 11/04/2023 3:33 AM [facility] Lactate, Arterial 1.3 0.5 - 2.2 mmol/L 11/04/2023 3:33 AM [facility] Fraction of Inspired Oxygen 40 % 11/04/2023 3:33 AM [facility] PF Ratio 255 Ratio 11/04/2023 3:33 AM [facility] Comment:PF ratio calculated using the non-temperature corrected pO2 result. IONIZED CALCIUM, ARTERIAL 0.99(L) 1.15 - 1.33 mmol/L 11/04/2023 3:33 AM [facility] Glucose, Arterial 155 65 - 199 mg/dL 11/04/2023 3:33 AM [facility] Comment:Glucose Concentratio n >=200 mg/dL plus symptoms is consistent with Diabetes Mellitus. Blood ARTERIAL BLOOD / Unknown 11/04/2023 3:32 AM EDT 11/04/2023 3:33 AM EDT Timi Person MD POINT OF CARE TEST ORDERABLES [facility] [place] [address] * POC, GLUCOSE (11/04/2023 3:31 AM EDT) Glucometer, POC 172 65 - 199 mg/dL 11/04/2023 3:31 AM EDT [facility] Comment:Supplemental ranges: <140 mg/dL before meals <180 mg/dL all other times of the day. Blood CAPILLARY BLOOD / Unknown 11/04/2023 3:31 AM EDT 11/04/2023 3:31 AM EDT Timi Person MD POINT OF CARE TEST ORDERABLES Performing Organization Address City/[facility]/ZIP Co de Phone Number [facility] [place] [address] * Potassium (11/04/2023 3:29 AM EDT) Potassium 3.7 3.5 - 5.0 mMol/L 11/04/2023 3:59 AM EDT [facility] Blood VENOUS BLOOD SPECIMEN / Unknown IP Care Team Draw / Unknown 11/04/2023 3:29 AM EDT 11/04/2023 3:36 AM EDT Timi Person MD CHEMISTRY ORDERABLE S [facility] [place] [address] * POC, GLUCOSE (11/04/2023 1:41 AM EDT) Glucometer, POC 174 65 - 199 mg/dL 11/04/2023 1:41 AM EDT [facility] Comment:Supplemental ranges: <140 mg/dL before meals <180 mg/dL all other times of the day. Blood CAPILLARY BLOOD / Unknown 11/04/2023 1:41 AM EDT 11/04/2023 1:41 AM EDT Timi Person MD POINT OF CARE TEST ORDERABLES [facility] [place] [address] * Potassium (11/04/2023 1:38 AM EDT) [facility] Potassium 3.6 3.5 - 5.0 mMol/L 11/04/2023 2:06 AM EDT [facility] Blood VENOUS BLOOD SPECIMEN / Unknown IP Care Team Draw / Unknown 11/04/2023 1:38 AM EDT 11/04/2023 1:45 AM EDT Timi Person MD CHEMISTRY ORDERABLE S Performing Organization Address City/[facility]/ZIP Co de Phone Number [facility] [place] [address] * ABORH RECHECK (PATIENT HISTORY FOUND) (11/03/2023 11:53 PM EDT) [facility] ABORH Recheck Progress Complete 11/04/2023 2:00 AM EDT [facility] Blood VENOUS BLOOD SPECIMEN / Unknown IP Care Team Draw / Unknown 11/03/2023 11:53 PM EDT 11/04/2023 12:22 AM EDT Timi Person MD BLOOD BANK LAB ORDE RABLES [facility] [place] [address] * Type and screen ([facility]/JEN) (11/03/2023 11:53 PM EDT) ABORH Type O POSITIVE 11/04/2023 1:06 AM EDT [facility] PATIENT HISTORY Found 11/04/2023 1:06 AM EDT [facility] Expires at [id number] on: 11-06-2023 11/04/2023 1:06 AM EDT [facility] ANTIBODY SCREEN AUTOMATED Negative 11/04/2023 1:06 AM EDT [facility] T&S only valid at [facility] 11/04/2023 1:06 AM EDT [facility] Blood VENOUS BLOOD SPECIMEN / Unknown IP Care Team Draw / Unknown 11/03/2023 11:53 PM EDT 11/04/2023 12:22 AM EDT Narrative [facility] - 11/04/2023 1:06 AM EDT This Type and Screen result is only valid at the [facility] Timi Person MD BLOOD BANK LAB MLE KALYAN [facility] [place] [address] * (ABNORMAL) Basic Metabolic Panel (11/03/2023 11:53 PM EDT) Glucose 133 65 - 199 mg/dL 11/04/2023 12:47 AM T [facility] Comment:Glucose Concentratio n >=200 mg/dL plus symptoms is consistent with Diabetes Mellitus. Blood Urea Nitrogen 67(H) 10 - 20 mg/dL 11/04/2023 12:47 AM EDT [facility] Creatinine 5.66(H) 0.80 - 1.50 mg/dL 11/04/2023 12:47 AM EDT [facility] Sodium 141 135 - 145 mMol/L 11/04/2023 12:[facility] Potassium 4.4 3.5 - 5.0 mMol/L 11/04/2023 12:47 AM [facility] Chloride 101 98 - 107 mMol/L 11/04/2023 12:47 AM EDT [facility] Carbon Dioxide 21(L) 22 - 31 mMol/L 11/04/2023 12:47 AM EDT [facility] Anion Gap 19(H) 5 - 15 mMol/L 11/04/2023 12:47 AM EDT [facility] Calcium 7.7(L) 8.5 - 10.5 mg/dL 11/04/2023 12:47 AM EDT [facility] Est Glomerular Filtration Rate - Male 12 mL/min/1. 73 m?? 11/04/2023 12:47 AM EDT [facility] Comment: This patient's estimated GFR [...] 11:53 PM EDT 11/04/2023 12:05 AM EDT Timi Person MD CHEMISTRY ORDERABLE S [facility] [place] [address] * Prothrombin Time (11/03/2023 11:53 PM EDT) Pathologist [facility] Prothrombin Time 12.4 9.4 - 12.5 sec 11/04/2023 12:35 AM EDT [facility] International Normalization Ratio 1.1 <=4.9 11/04/2023 12:35 AM EDT [facility] Comment: An INR < 2.0 [...] 11:53 PM EDT 11/04/2023 12:05 AM EDT Timi Person MD HEMATOLOGY ORDERABL ES Performing Organization Address City/[facility]/ZIP Co de Phone Number [facility] [place] [address] * (ABNORMAL) Phosphorus (11/03/2023 11:53 PM EDT) Phosphorus 10.0(H) 2.5 - 4.5 mg/dL 11/04/2023 1:00 AM EDT [facility] Blood VENOUS BLOOD SPECIMEN / Unknown IP Care Team Draw / Unknown 11/03/2023 11:53 PM EDT 11/04/2023 12:05 AM EDT Timi Person MD CHEMISTRY ORDERABLE S Performing Organization Address City/[facility]/ZIP Co de Phone Number [facility] [place] [address] * Magnesium (11/03/2023 11:53 PM EDT) Magnesium 0.97 0.69 - 1.07 mMol/L 11/04/2023 12:47 AM EDT [facility] Blood VENOUS BLOOD SPECIMEN / Unknown IP Care Team Draw / Unknown 11/03/2023 11:53 PM EDT 11/04/2023 12:05 AM EDT Timi Person MD CHEMISTRY ORDERABLE S Performing Organization Address City/[facility]/ZIP Co de Phone Number [facility] [place] [address] * Vancomycin Level, Random (11/03/2023 11:53 PM EDT) Vancomycin, Random 24.2 mg/L 2023 12:47 AM EDT [facility] Comment:This level is for de termination of the patient's vancomycin [id number]-curve (AUC) value. Contact the inpatient pharmacy for interpretation. Blood VENOUS BLOOD SPECIMEN / Unknown IP Care Team Draw / Unknown 11/03/2023 11:53 PM EDT 11/04/2023 12:05 AM EDT Timi Person MD CHEMISTRY ORDERABLE S [facility] [place] [address] * Triglyceride (11/03/2023 11:53 PM EDT) Triglyceride 464 mg/dL 11/04/2023 12:47 AM EDT [facility] Comment: Normal: <150 mg/dL Borderline High: 150-199 mg/dL High: 200-499 mg/dL Very High: > or =500 mg/dL Blood VENOUS BLOOD SPECIMEN / Unknown IP Care Team Draw / Unknown 11/03/2023 11:53 PM EDT 11/04/2023 12:05 AM EDT Timi Person MD CHEMISTRY ORDERABLE S Performing Organization Address City/[facility]/ZIP Co de Phone Number [facility] [place] [address] * POC, GLUCOSE (11/03/2023 11:52 PM EDT) Glucometer, POC 122 65 - 199 mg/dL 11/03/2023 11:53 PM EDT [facility] Comment:Supplemental ranges: <140 mg/dL before meals <180 mg/dL all other times of the day. Blood CAPILLARY BLOOD / Unknown 11/03/2023 11:52 PM EDT 11/03/2023 11:53 PM EDT Timi Person MD POINT OF CARE TEST ORDERABLES [facility] [place] [address] * POC, GLUCOSE (11/03/2023 11:10 PM EDT) Glucometer, POC 128 65 - 199 mg/dL 11/03/2023 11:11 PM EDT [facility] Comment:Supplemental ranges: <140 mg/dL before meals <180 mg/dL all other times of the day. Blood CAPILLARY BLOOD / Unknown 11/03/2023 11:10 PM EDT 11/03/2023 11:11 PM EDT Timi Person MD POINT OF CARE TEST ORDERABLES Performing Organization Address City/[facility]/ZIP Co de Phone Number [facility] [place] [address] * POC, GLUCOSE (11/03/2023 10:33 PM EDT) Glucometer, POC 133 65 - 199 mg/dL 11/03/2023 10:33 PM EDT [facility] Comment:Supplemental ranges: <140 mg/dL before meals <180 mg/dL all other times of the day. Blood CAPILLARY BLOOD / Unknown 11/03/2023 10:33 PM EDT 11/03/2023 10:33 PM EDT Timi Person MD POINT OF CARE TEST ORDERABLES [facility] [place] [address] * (ABNORMAL) CBC (with Diff) (11/03/2023 10:28 PM EDT) White Blood Cell 12.14(H) 4.00 - 9.50 x10(3)/mc L 11/03/2023 11:32 PM EDT [facility] Red Blood Cell 3.26(L) 4.58 - 5.54 x10(6)/mc L 11/03/2023 11:32 PM EDT [facility] Hemoglobin 6.7(L) 13.7 - 16.5 g/dL 11/03/2023 11:32 PM [facility] Hematocrit 21.5(L) 40.5 - 48.5 % 11/03/2023 11:32 PM [facility] Mean Cell Volume 66.0(L) 82.9 - 93.1 fL 11/03/2023 11:32 PM [facility] Mean Cell Hemoglobin 20.6(L) 27.5 - 32.1 pg 11/03/2023 11:32 PM [facility] Mean Cell Hemoglobin Concentration 31.2(L) 32.0 - 35.7 g/dL 11/03/2023 11:32 PM [facility] Platelet 208 145 - 357 x10(3)/mc L 11/03/2023 11:32 PM [facility] Mean Platelet Volume 10.8 7.6 - 12.9 fL 11/03/2023 11:32 PM [facility] RDW Standard Deviation 41.4 36.0 - 45.0 fL 11/03/2023 11:32 PM [facility] RDW coefficient of variation 17.6(H) 11.4 - 13.8 % 11/03/2023 11:32 PM [facility] NRBC% auto 1.0 % 11/03/2023 11:32 PM [facility] NRBC Absolute 0.12(H) 0.00 - 0.00 x10(3)/mc L 11/03/2023 11:32 PM [facility] Neutrophil % 84.0 % 11/03/2023 11:32 PM [facility] Neutrophil Absolute (ANC) - Automated 10.19(H) 1.70 - 6.10 x10(3)/mc L 11/03/2023 11:32 PM [facility] Lymph % 7.1 % 11/03/2023 11:32 PM [facility] Lymph Absolute 0.86(L) 0.90 - 3.20 x10(3)/mc L 11/03/2023 11:32 PM EDT [facility] Monocyte % 5.8 % 11/03/2023 11:32 PM EDT [facility] Monocyte Absolute 0.71 0.30 - 0.90 x10(3)/mc L 11/03/2023 11:32 PM EDT [facility] Eos % 1.8 % 11/03/2023 11:32 PM EDT [facility] Eos Absolute 0.22 0.00 - 0.40 x10(3)/mc L 11/03/2023 11:32 PM EDT [facility] Basophil % 0.5 % 11/03/2023 11:32 PM EDT [facility] Baso Absolute 0.06 0.00 - 0.10 x10(3)/mc L 11/03/2023 11:32 PM EDT [facility] Immature Gran % 0.8 % 11:32 PM EDT [facility] Immature Gran Absolute 0.10(H) 0.00 - 0.04 x10(3)/mc L 11/03/2023 11:32 PM EDT [facility] Blood VENOUS BLOOD SPECIMEN / Unknown IP Care Team Draw / Unknown 11/03/2023 10:28 PM EDT 11/03/2023 10:38 PM EDT Timi Person MD HEMATOLOGY ORDERABL ES [facility] [address] [place] [address] * (ABNORMAL) Blood Gas, Arterial POC (11/03/2023 8:31 PM EDT) pH, Arterial 7.36 7.35 - 7.45 11/03/2023 8:32 PM EDT [facility] PCO2, Arterial 40 35 - 45 mmHg 11/03/2023 8:32 PM [facility] PO2, Arterial 96 85 - 104 mmHg 11/03/2023 8:32 PM [facility] Bicarbonate, Arterial 22.0 20.0 - 26.0 mmol/L 11/03/2023 8:32 PM [facility] Base Excess, Arterial -3.5(L) -3.0 - 3.0 mmol/L 11/03/2023 8:32 PM [facility] Hemoglobin, Arterial 6.7(L) 13.7 - 16.5 g/dL 11/03/2023 8:32 PM [facility] Oxyhemoglobin, Arterial 95.1 94.0 - 97.0 % 11/03/2023 8:32 PM [facility] Carboxyhemoglobin , Arterial 0.7 % 11/03/2023 8:32 PM [facility] Comment: Nonsmokers: 0.5-1.5% COHB ?? Smokers: Variable ??but usually less than 10% ?? Toxic: 20-30% COHB ?? Lethal: Greater than 60% COHB Methemoglobin, Arterial 0.3 <=1.5 % 11/03/2023 8:32 PM [facility] Sodium, Arterial 135 135 - 145 mmol/L 11/03/2023 8:32 PM [facility] Potassium, Arterial 3.7 3.5 - 5.0 mmol/L 11/03/2023 8:32 PM [facility] Chloride, Arterial 101 98 - 107 mmol/L 11/03/2023 8:32 PM [facility] Lactate, Arterial 1.3 0.5 - 2.2 mmol/L 11/03/2023 8:32 PM [facility] Fraction of Inspired Oxygen 40 % 11/03/2023 8:32 PM [facility] PF Ratio 240 Ratio 11/03/2023 8:32 PM [facility] Comment:PF ratio calculated using the non-temperature corrected pO2 result. IONIZED CALCIUM, ARTERIAL 0.99(L) 1.15 - 1.33 mmol/L 11/03/2023 8:32 PM EDT [facility] Glucose, Arterial 134 65 - 199 mg/dL 11/03/2023 8:32 PM EDT [facility] Comment:Glucose Concentratio n >=200 mg/dL plus symptoms is consistent with Diabetes Mellitus. Blood ARTERIAL BLOOD / Unknown 11/03/2023 8:31 PM EDT 11/03/2023 8:32 PM EDT Timi Person MD POINT OF CARE TEST ORDERABLES [facility] [place] [address] * Potassium (11/03/2023 8:23 PM EDT) Potassium 3.7 3.5 - 5.0 mMol/L 11/03/2023 9:05 PM EDT [facility] Blood VENOUS BLOOD SPECIMEN / Unknown IP Care Team Draw / Unknown 11/03/2023 8:23 PM EDT 11/03/2023 8:27 PM EDT Timi Person MD CHEMISTRY ORDERABLE S Performing Organization Address City/[facility]/ZIP Co de Phone Number [facility] [place] [address] * POC, GLUCOSE (11/03/2023 7:24 PM EDT) Glucometer, POC 144 65 - 199 mg/dL 11/03/2023 7:24 PM EDT [facility] Comment:Supplemental ranges: <140 mg/dL before meals <180 mg/dL all other times of the day. Blood CAPILLARY BLOOD / Unknown 11/03/2023 7:24 PM EDT 11/03/2023 7:24 PM EDT Timi Person MD POINT OF CARE TEST ORDERABLES [facility] [place] [address] * POC, GLUCOSE (11/03/2023 5:14 PM EDT) Glucometer, POC 141 65 - 199 mg/dL 11/03/2023 5:14 PM EDT [facility] Comment:Supplemental ranges: <140 mg/dL before meals <180 mg/dL all other times of the day. Blood CAPILLARY BLOOD / Unknown 11/03/2023 5:14 PM EDT 11/03/2023 5:15 PM EDT Timi Person MD POINT OF CARE TEST ORDERABLES Performing Organization Address [facility] Co de Phone Number [facility] [place] [address] * POC, GLUCOSE (11/03/2023 3:46 PM EDT) Glucometer, POC 145 65 - 199 mg/dL 11/03/2023 3:46 PM EDT [facility] Comment:Supplemental ranges: <140 mg/dL before meals <180 mg/dL all other times of the day. Blood CAPILLARY BLOOD / Unknown 11/03/2023 3:46 PM EDT 11/03/2023 3:46 PM EDT Timi Person MD POINT OF CARE TEST ORDERABLES Performing Organization Address City/[facility]/ZIP Co de Phone Number [facility] [place] [address] * (ABNORMAL) Blood Gas, Arterial POC (11/03/2023 1:09 PM EDT) pH, Arterial 7.36 7.35 - 7.45 11/03/2023 1:10 PM EDT [facility] PCO2, Arterial 38 35 - 45 mmHg 11/03/2023 1:10 PM EDT [facility] PO2, Arterial 106(H) 85 - 104 mmHg 11/03/2023 1:10 PM [facility] Bicarbonate, Arterial 21.1 20.0 - 26.0 mmol/L 11/03/2023 1:10 PM [facility] Base Excess, Arterial -4.4(L) -3.0 - 3.0 mmol/L 11/03/2023 1:10 PM [facility] Hemoglobin, Arterial 7.0(L) 13.7 - 16.5 g/dL 11/03/2023 1:10 PM [facility] Oxyhemoglobin, Arterial 95.8 94.0 - 97.0 % 11/03/2023 1:10 PM [facility] Carboxyhemoglobin , Arterial 1.0 % 11/03/2023 1:10 PM [facility] Comment: Nonsmokers: 0.5-1.5% COHB ?? Smokers: Variable ??but usually less than 10% ?? Toxic: 20-30% COHB ?? Lethal: Greater than 60% COHB Methemoglobin, Arterial 0.3 <=1.5 % 11/03/2023 1:10 PM [facility] Sodium, Arterial 134(L) 135 - 145 mmol/L 11/03/2023 1:10 PM [facility] Potassium, Arterial 3.8 3.5 - 5.0 mmol/L 11/03/2023 1:10 PM [facility] Chloride, Arterial 101 98 - 107 mmol/L 11/03/2023 1:10 PM [facility] Lactate, Arterial 1.1 0.5 - 2.2 mmol/L 11/03/2023 1:10 PM [facility] Fraction of Inspired Oxygen 40 % 11/03/2023 1:10 PM [facility] PF Ratio 265 Ratio 11/03/2023 1:10 PM [facility] Comment:PF ratio calculated using the non-temperature corrected pO2 result. IONIZED CALCIUM, ARTERIAL 0.99(L) 1.15 - 1.33 mmol/L 11/03/2023 1:10 PM EDT [facility] Glucose, Arterial 129 65 - 199 mg/dL 11/03/2023 1:10 PM EDT [facility] Comment:Glucose Concentratio n >=200 mg/dL plus symptoms is consistent with Diabetes Mellitus. Blood ARTERIAL BLOOD / Unknown 11/03/2023 1:09 PM EDT 11/03/2023 1:10 PM EDT Timi Person MD POINT OF CARE TEST ORDERABLES [facility] [place] [address] * (ABNORMAL) Basic Metabolic Panel (11/03/2023 1:05 PM EDT) Glucose 131 65 - 199 mg/dL 11/03/2023 1:59 PM EDT [facility] Comment:Glucose Concentratio n >=200 mg/dL plus symptoms is consistent with Diabetes Mellitus. Blood Urea Nitrogen 65(H) 10 - 20 mg/dL 11/03/2023 1:59 PM EDT [facility] Creatinine 5.39(H) 0.80 - 1.50 mg/dL 11/03/2023 1:59 PM EDT [facility] Sodium 139 135 - 145 mMol/L 11/03/2023 1:59 PM EDT [facility] Potassium 3.8 3.5 - 5.0 mMol/L 11/03/2023 1:59 PM EDT [facility] Chloride 99 98 - 107 mMol/L 11/03/2023 1:59 PM EDT [facility] Carbon Dioxide 22 22 - 31 mMol/L 11/03/2023 1:59 PM EDT [facility] Anion Gap 18(H) 5 - 15 mMol/L 11/03/2023 1:59 PM EDT [facility] Calcium 7.4(L) 8.5 - 10.5 mg/dL 11/03/2023 1:59 PM EDT [facility] Est Glomerular Filtration Rate - Male 13 mL/min/1. 73 m?? 11/03/2023 1:59 PM EDT [facility] Comment: This patient's estimated GFR [...] IP Care Team Draw / Unknown 11/03/2023 1:05 PM EDT 11/03/2023 1:24 PM EDT Timi Person MD CHEMISTRY ORDERABLE S [facility] [place] [address] * (ABNORMAL) Prothrombin Time (11/03/2023 1:05 PM EDT) Pathologist [facility] Prothrombin Time 13.0(H) 9.4 - 12.5 sec 11/03/2023 1:38 PM EDT [facility] International Normalization Ratio 1.1 <=4.9 11/03/2023 1:38 PM EDT [facility] Comment: An INR < 2.0 [...] IP Care Team Draw / Unknown 11/03/2023 1:05 PM EDT 11/03/2023 1:24 PM EDT Timi Person MD HEMATOLOGY ORDERABL ES [facility] [place] [address] * XR Abdomen 1 view (Generic) (11/03/2023 12:27 PM EDT) WORKSTATION ID [id number] RAD Anatomical Region Laterality Modality Abdomen N/A Digital Radiogra phy Impressions 11/03/2023 1:08 PM EDT Feeding tube tip in the mid stomach, stable. Thank you for letting us participate in the care of this patient. ??If you are a health care provider and have any questions regarding this report, please contact the number below. ??For patients who have questions please contact the health personal care assistant that requested your imaging first. ? Narrative 11/03/2023 1:08 PM EDT EXAMINATION: XR ABDOMEN 1 VIEW (GENERIC) CLINICAL HISTORY: dht plcmnt TECHNIQUE: 1 view abdomen COMPARISON: KUB, today at 12:15 PM FINDINGS: The feeding tube tip projects over the mid gastric body, stable. The nasogastric tube is no longer seen. The remainder of the exam is unchanged from earlier. Procedure Note Gerald Kaur MD - 11/03/2023 EXAMINATION: XR ABDOMEN 1 VIEW (GENERIC) CLINICAL HISTORY: dht plcmnt TECHNIQUE: 1 view abdomen COMPARISON: KUB, today at 12:15 PM FINDINGS: The feeding tube tip projects over the mid gastric body, stable. Thenasogastric tube is no longer seen. The remainder of the exam is unchanged fromearlier. IMPRESSION Feeding tube tip in the mid stomach, stable. Thank you for letting us participate in the care of this patient. If youare a health care provider and have any questions regarding this report,please contact the number below. For patients who have questions please contactthe health personal care assistant that requested your imaging first. Timi Person MD IMG DX ORDERABLES * XR Abdomen 1 view (Generic) (11/03/2023 12:19 PM EDT) WORKSTATION ID [id number] RAD Anatomical Region Laterality Modality Abdomen N/A Digital Radiogra phy Impressions 11/03/2023 12:56 PM EDT Feeding tube tip in the mid stomach. Thank you for letting us participate in the care of this patient. ??If you are a health care provider and have any questions regarding this report, please contact the number below. ??For patients who have questions please contact the health personal care assistant that requested your imaging first. ? Narrative 11/03/2023 12:56 PM EDT EXAMINATION: XR ABDOMEN 1 VIEW (GENERIC) CLINICAL HISTORY: DHT placement TECHNIQUE: 1 view abdomen COMPARISON: Chest x-ray, 11/02/2023 FINDINGS: An AP portable abdomen x-ray was obtained. The distal portion of a feeding tube is visualized with tip projecting over the mid gastric body. The distal portion of an NG tube is curled in the proximal stomach. The abdomen is relatively gasless. Multiple support lines and catheters project over the lower thorax. The bones are unremarkable. Procedure Note Gerald Kaur MD - 11/03/2023 EXAMINATION: XR ABDOMEN 1 VIEW (GENERIC) CLINICAL HISTORY: DHT placement TECHNIQUE: 1 view abdomen COMPARISON: Chest x-ray, 11/02/2023 FINDINGS: An AP portable abdomen x-ray was obtained. The distal portion of a feeding tube is visualized with tip projectingover the mid gastric body. The distal portion of an NG tube is curled in theproximal stomach. The abdomen is relatively gasless. Multiple support lines and catheters project over the lower thorax. The bones are unremarkable. IMPRESSION Feeding tube tip in the mid stomach. Thank you for letting us participate in the care of this patient. If youare a health care provider and have any questions regarding this report,please contact the number below. For patients who have questions please contactthe health personal care assistant that requested your imaging first. Timi Person MD IMG DX ORDERABLES * POC, GLUCOSE (11/03/2023 11:24 AM EDT) Glucometer, POC 145 65 - 199 mg/dL 11/03/2023 11:24 AM EDT [facility] Comment:Supplemental ranges: <140 mg/dL before meals <180 mg/dL all other times of the day. Blood CAPILLARY BLOOD / Unknown 11/03/2023 11:24 AM EDT 11/03/2023 11:24 AM EDT Timi Person MD POINT OF CARE TEST ORDERABLES [facility] [place] [address] * POC, GLUCOSE (11/03/2023 10:03 AM EDT) Glucometer, POC 126 65 - 199 mg/dL 11/03/2023 10:03 AM EDT [facility] Comment:Supplemental ranges: <140 mg/dL before meals <180 mg/dL all other times of the day. Blood CAPILLARY BLOOD / Unknown 11/03/2023 10:03 AM EDT 11/03/2023 10:04 AM EDT Timi Person MD POINT OF CARE TEST ORDERABLES Performing Organization Address City/[facility] Co de Phone Number [facility] [place] [address] * POC, GLUCOSE (11/03/2023 9:25 AM EDT) Pathologist Ric Glucometer, POC 115 65 - 199 mg/dL 11/03/2023 9:26 AM EDT [facility] Comment:Supplemental ranges: <140 mg/dL before meals <180 mg/dL all other times of the day. Blood CAPILLARY BLOOD / Unknown 11/03/2023 9:25 AM EDT 11/03/2023 9:26 AM EDT Timi Person MD POINT OF CARE TEST ORDERABLES Performing Organization Address [facility] Co de Phone Number [facility] [place] [address] * Duplex Study for DVT, Bilat legs (11/03/2023 8:39 AM EDT) VB Text Report Department: Vascular Surgery Lab Patient: [id number] (HAYDEN RUSSO) CPT: 42575 Referring Physician: TIMI PERSON ?? Phone: Indications: Post op ? [...] of Report VASCUBASE 11/03/2023 8:39 AM EDT Timi Person MD VASCULAR ORDERABLES VASCUBASE * Potassium (11/03/2023 7:46 AM EDT) Potassium 3.6 3.5 - 5.0 mMol/L 11/03/2023 8:23 AM EDT [facility] Blood VENOUS BLOOD SPECIMEN / Unknown IP Care Team Draw / Unknown 11/03/2023 7:46 AM EDT 11/03/2023 7:53 AM EDT Timi Person MD CHEMISTRY ORDERABLE S [facility] [place] [address] * Vancomycin Level, Random (11/03/2023 7:46 AM EDT) Vancomycin, Random 29.6 mg/L 2023 8:23 AM EDT [facility] Comment:This level is for de termination of the patient's vancomycin pabe-ywhhi-xcf-curve (AUC) value. Contact the inpatient pharmacy for interpretation. Blood VENOUS BLOOD SPECIMEN / Unknown IP Care Team Draw / Unknown 11/03/2023 7:46 AM EDT 11/03/2023 7:53 AM EDT Janie Smith MD CHEMISTRY ORDERABLES [facility] [place] [address] * (ABNORMAL) Blood Gas, Arterial POC (11/03/2023 7:07 AM EDT) pH, Arterial 7.40 7.35 - 7.45 11/03/2023 7:08 AM EDT [facility] PCO2, Arterial 35 35 - 45 mmHg 11/03/2023 7:08 AM EDT [facility] PO2, Arterial 102 85 - 104 mmHg 11/03/2023 7:08 AM EDT [facility] Bicarbonate, Arterial 21.4 20.0 - 26.0 mmol/L 11/03/2023 7:08 AM EDT [facility] Base Excess, Arterial -3.4(L) -3.0 - 3.0 mmol/L 11/03/2023 7:08 AM EDT [facility] Hemoglobin, Arterial 7.4(L) 13.7 - 16.5 g/dL 11/03/2023 7:08 AM EDT [facility] Oxyhemoglobin, Arterial 96.1 94.0 - 97.0 % 11/03/2023 7:[facility] Carboxyhemoglobin , Arterial 0.7 % 11/03/2023 7:08 AM EDT [facility] Comment: Nonsmokers: 0.5-1.5% COHB ?? Smokers: Variable ??but usually less than 10% ?? Toxic: 20-30% COHB ?? Lethal: Greater than 60% COHB Methemoglobin, Arterial 0.3 <=1.5 % 11/03/2023 7:08 AM EDT [facility] Sodium, Arterial 134(L) 135 - 145 mmol/L 11/03/2023 7:08 AM EDT [facility] Potassium, Arterial 3.7 3.5 - 5.0 mmol/L 11/03/2023 7:08 AM EDT [facility] Chloride, Arterial 102 98 - 107 mmol/L 11/03/2023 7:08 AM EDT [facility] Lactate, Arterial 1.4 0.5 - 2.2 mmol/L 11/03/2023 7:08 AM EDT [facility] Fraction of Inspired Oxygen 50 % 11/03/2023 7:08 AM EDT [facility] PF Ratio 204 Ratio 11/03/2023 7:08 AM EDT [facility] Comment:PF ratio calculated using the non-temperature corrected pO2 result. IONIZED CALCIUM, ARTERIAL 0.96(L) 1.15 - 1.33 mmol/L 11/03/2023 7:08 AM EDT [facility] Glucose, Arterial 134 65 - 199 mg/dL 11/03/2023 7:08 AM EDT [facility] Comment:Glucose Concentratio n >=200 mg/dL plus symptoms is consistent with Diabetes Mellitus. Blood ARTERIAL BLOOD / Unknown 11/03/2023 7:07 AM EDT 11/03/2023 7:08 AM EDT Timi Person MD POINT OF CARE TEST ORDERABLES Performing Organization Address City/[facility]/ZIP Co de Phone Number [facility] [place] [address] * POC, GLUCOSE (11/03/2023 6:22 AM EDT) [facility] Signature Glucometer, POC 129 65 - 199 mg/dL 11/03/2023 6:22 AM EDT [facility] Comment:Supplemental ranges: <140 mg/dL before meals <180 mg/dL all other times of the day. Blood CAPILLARY BLOOD / Unknown 11/03/2023 6:22 AM EDT 11/03/2023 6:22 AM EDT Timi Person MD POINT OF CARE TEST ORDERABLES [facility] [place] [address] * POC, GLUCOSE (11/03/2023 5:09 AM EDT) Glucometer, POC 138 65 - 199 mg/dL 11/03/2023 5:09 AM EDT [facility] Comment:Supplemental ranges: <140 mg/dL before meals <180 mg/dL all other times of the day. Blood CAPILLARY BLOOD / Unknown 11/03/2023 5:09 AM EDT 11/03/2023 5:09 AM EDT Timi ePrson MD POINT OF CARE TEST ORDERABLES [facility] [place] [address] * POC, GLUCOSE (11/03/2023 2:20 AM EDT) Glucometer, POC 152 65 - 199 mg/dL 11/03/2023 2:20 AM EDT [facility] Comment:Supplemental ranges: <140 mg/dL before meals <180 mg/dL all other times of the day. Blood CAPILLARY BLOOD / Unknown 11/03/2023 2:20 AM EDT 11/03/2023 2:20 AM EDT Timi Person MD POINT OF CARE TEST ORDERABLES [facility] [place] [address] * POC, GLUCOSE (11/03/2023 12:22 AM EDT) Glucometer, POC 155 65 - 199 mg/dL 11/03/2023 12:23 AM EDT [facility] Comment:Supplemental ranges: <140 mg/dL before meals <180 mg/dL all other times of the day. Blood CAPILLARY BLOOD / Unknown 11/03/2023 12:22 AM EDT 11/03/2023 12:23 AM EDT Timi Person MD POINT OF CARE TEST ORDERABLES [facility] [place] [address] * (ABNORMAL) Basic Metabolic Panel (11/03/2023 12:21 AM EDT) Glucose 148 65 - 199 mg/dL 11/03/2023 1:04 AM EDT [facility] Comment:Glucose Concentratio n >=200 mg/dL plus symptoms is consistent with Diabetes Mellitus. Blood Urea Nitrogen 58(H) 10 - 20 mg/dL 11/03/2023 1:04 AM [facility] Creatinine 5.14(H) 0.80 - 1.50 mg/dL 11/03/2023 1:04 AM [facility] Sodium 140 135 - 145 mMol/L 11/03/2023 1:04 AM [facility] Potassium 4.0 3.5 - 5.0 mMol/L 11/03/2023 1:04 AM [facility] Chloride 101 98 - 107 mMol/L 11/03/2023 1:04 AM [facility] Carbon Dioxide 22 22 - 31 mMol/L 11/03/2023 1:04 AM [facility] Anion Gap 17(H) 5 - 15 mMol/L 11/03/2023 1:04 AM [facility] Calcium 7.5(L) 8.5 - 10.5 mg/dL 11/03/2023 1:04 AM [facility] Est Glomerular Filtration Rate - Male 13 mL/min/1. 73 m?? 11/03/2023 1:04 AM [facility] Comment: This patient's estimated GFR [...] IP Care Team Draw / Unknown 11/03/2023 12:21 AM EDT 11/03/2023 12:36 AM EDT Timi Person MD CHEMISTRY ORDERABLE S [facility] [place] [address] * (ABNORMAL) CBC (with Diff) (11/03/2023 12:21 AM EDT) White Blood Cell 12.98(H) 4.00 - 9.50 x10(3)/mc L 11/03/2023 12:56 AM [facility] Red Blood Cell 3.84(L) 4.58 - 5.54 x10(6)/mc L 11/03/2023 12:56 AM [facility] Hemoglobin 7.7(L) 13.7 - 16.5 g/dL 11/03/2023 12:56 AM [facility] Hematocrit 25.5(L) 40.5 - 48.5 % 11/03/2023 12:56 AM [facility] Mean Cell Volume 66.4(L) 82.9 - 93.1 fL 11/03/2023 12:56 AM [facility] Mean Cell Hemoglobin 20.1(L) 27.5 - 32.1 pg 11/03/2023 12:56 AM [facility] Mean Cell Hemoglobin Concentration 30.2(L) 32.0 - 35.7 g/dL 11/03/2023 12:56 AM [facility] Platelet 172 145 - 357 x10(3)/mc L 11/03/2023 12:56 AM [facility] Mean Platelet Volume 11.1 7.6 - 12.9 fL 11/03/2023 12:56 AM [facility] RDW Standard Deviation 42.1 36.0 - 45.0 fL 11/03/2023 12:56 AM [facility] RDW coefficient of variation 17.8(H) 11.4 - 13.8 % 11/03/2023 12:56 AM [facility] NRBC% auto 0.5 % 11/03/2023 12:56 AM [facility] NRBC Absolute 0.07(H) 0.00 - 0.00 x10(3)/mc L 11/03/2023 12:56 AM [facility] Neutrophil % 84.4 % 11/03/2023 12:56 AM [facility] Neutrophil Absolute (ANC) - Automated 10.96(H) 1.70 - 6.10 x10(3)/mc L 11/03/2023 12:56 AM [facility] Lymph % 7.9 % 11/03/2023 12:56 AM [facility] Lymph Absolute 1.03 0.90 - 3.20 x10(3)/mc L 11/03/2023 12:56 AM [facility] Monocyte % 5.9 % 11/03/2023 12:56 AM [facility] Monocyte Absolute 0.76 0.30 - 0.90 x10(3)/mc L 11/03/2023 12:56 AM [facility] Eos % 0.7 % 11/03/2023 12:56 AM [facility] Eos Absolute 0.09 0.00 - 0.40 x10(3)/mc L 11/03/2023 12:56 AM [facility] Basophil % 0.3 % 11/03/2023 12:56 AM [facility] Baso Absolute 0.04 0.00 - 0.10 x10(3)/mc L 11/03/2023 12:56 AM EDT [facility] Immature Gran % 0.8 % 12:56 AM EDT [facility] Immature Gran Absolute 0.10(H) 0.00 - 0.04 x10(3)/mc L 11/03/2023 12:56 AM EDT [facility] Blood VENOUS BLOOD SPECIMEN / Unknown IP Care Team Draw / Unknown 11/03/2023 12:21 AM EDT 11/03/2023 12:36 AM EDT Timi Person MD HEMATOLOGY ORDERABL ES Performing Organization Address City/[facility]/ZIP Co de Phone Number [facility] [place] [address] * POC, GLUCOSE (11/02/2023 10:08 PM EDT) Glucometer, POC 153 65 - 199 mg/dL 11/02/2023 10:09 PM EDT [facility] Comment:Supplemental ranges: <140 mg/dL before meals <180 mg/dL all other times of the day. Blood CAPILLARY BLOOD / Unknown 11/02/2023 10:08 PM EDT 11/02/2023 10:09 PM EDT Timi Person MD POINT OF CARE TEST ORDERABLES Performing Organization Address City/[facility]/ZIP Co de Phone Number [facility] [place] [address] * (ABNORMAL) Blood Gas, Arterial POC (11/02/2023 9:20 PM EDT) pH, Arterial 7.38 7.35 - 7.45 11/02/2023 9:21 PM EDT [facility] PCO2, Arterial 39 35 - 45 mmHg 11/02/2023 9:21 PM EDT [facility] PO2, Arterial 140(H) 85 - 104 mmHg 11/02/2023 9:21 PM EDT [facility] Bicarbonate, Arterial 22.5 20.0 - 26.0 mmol/L 11/02/2023 9:21 PM [facility] Base Excess, Arterial -2.6 -3.0 - 3.0 mmol/L 11/02/2023 9:21 PM [facility] Hemoglobin, Arterial 7.5(L) 13.7 - 16.5 g/dL 11/02/2023 9:21 PM [facility] Oxyhemoglobin, Arterial 97.5(H) 94.0 - 97.0 % 11/02/2023 9:21 PM [facility] Carboxyhemoglobin , Arterial 0.6 % 11/02/2023 9:21 PM [facility] Comment: Nonsmokers: 0.5-1.5% COHB ?? Smokers: Variable ??but usually less than 10% ?? Toxic: 20-30% COHB ?? Lethal: Greater than 60% COHB Methemoglobin, Arterial 0.3 <=1.5 % 11/02/2023 9:21 PM [facility] Sodium, Arterial 132(L) 135 - 145 mmol/L 11/02/2023 9:21 PM [facility] Potassium, Arterial 4.1 3.5 - 5.0 mmol/L 11/02/2023 9:21 PM [facility] Chloride, Arterial 101 98 - 107 mmol/L 11/02/2023 9:21 PM [facility] Lactate, Arterial 1.5 0.5 - 2.2 mmol/L 11/02/2023 9:21 PM [facility] Fraction of Inspired Oxygen 50 % 11/02/2023 9:21 PM [facility] PF Ratio 280 Ratio 11/02/2023 9:21 PM [facility] Comment:PF ratio calculated using the non-temperature corrected pO2 result. IONIZED CALCIUM, ARTERIAL 1.02(L) 1.15 - 1.33 mmol/L 11/02/2023 9:21 PM [facility] Glucose, Arterial 159 65 - 199 mg/dL 11/02/2023 9:21 PM EDT [facility] Comment:Glucose Concentratio n >=200 mg/dL plus symptoms is consistent with Diabetes Mellitus. Blood ARTERIAL BLOOD / Unknown 11/02/2023 9:20 PM EDT 11/02/2023 9:21 PM EDT Timi Person MD POINT OF CARE TEST ORDERABLES [facility] [place] [address] * Potassium (11/02/2023 9:16 PM EDT) Potassium 4.1 3.5 - 5.0 mMol/L 11/02/2023 9:54 PM EDT [facility] Blood VENOUS BLOOD SPECIMEN / Unknown IP Care Team Draw / Unknown 11/02/2023 9:16 PM EDT 11/02/2023 9:23 PM EDT Timi Person MD CHEMISTRY ORDERABLE S Performing Organization Address City/[facility]/ZIP Co de Phone Number [facility] [place] [address] * POC, GLUCOSE (11/02/2023 8:03 PM EDT) Glucometer, POC 174 65 - 199 mg/dL 11/02/2023 8:03 PM EDT [facility] Comment:Supplemental ranges: <140 mg/dL before meals <180 mg/dL all other times of the day. Blood CAPILLARY BLOOD / Unknown 11/02/2023 8:03 PM EDT 11/02/2023 8:04 PM EDT Timi Person MD POINT OF CARE TEST ORDERABLES [facility] [place] [address] * Lower Respiratory Culture (11/02/2023 6:38 PM EDT) Lower Respiratory Culture Rare mixed bacterial morphotypes suggestive of normal upper respiratory adrian 11/04/2023 8:22 AM EDT [facility] Gram Stain No squamous epithelial cells 11/04/2023 8:22 AM EDT [facility] Gram Stain Many Neutrophils seen 11/04/2023 8:22 AM EDT [facility] Gram Stain Rare Mixed bacterial morphotypes suggestive of normal upper respiratory adrian 11/04/2023 8:22 AM EDT [facility] Bronchial Alveolar Lavage SPECIMEN FROM BRONCHUS / Unknown Non Blood Collection / Unknown 11/02/2023 6:38 PM EDT 11/02/2023 6:42 PM EDT Janie Smith MD MICROBIOLOGY - GENER AL ORDERABLES Performing Organization Address [facility] Co de Phone Number [facility] [place] [address] * Lower Respiratory Culture (11/02/2023 6:29 PM EDT) Lower Respiratory Culture Rare mixed bacterial morphotypes suggestive of normal upper respiratory adrian 11/04/2023 8:23 AM EDT [facility] Gram Stain No squamous epithelial cells 11/04/2023 8:23 AM EDT [facility] Gram Stain Many Neutrophils seen 11/04/2023 8:23 AM EDT [facility] Gram Stain Few Mixed bacterial morphotypes suggestive of normal upper respiratory adrian 11/04/2023 8:23 AM EDT [facility] Bronchial Alveolar Lavage SPECIMEN FROM BRONCHUS / Unknown Non Blood Collection / Unknown 11/02/2023 6:29 PM EDT 11/02/2023 6:42 PM EDT Janie Smith MD MICROBIOLOGY - GENER AL ORDERABLES Performing Organization Address [facility]/ZIP Co de Phone Number [facility] [place] [address] * (ABNORMAL) Blood Gas, Arterial POC (11/02/2023 6:12 PM EDT) pH, Arterial 7.36 7.35 - 7.45 11/02/2023 6:13 PM [facility] PCO2, Arterial 39 35 - 45 mmHg 11/02/2023 6:13 PM [facility] PO2, Arterial 352(H) 85 - 104 mmHg 11/02/2023 6:13 PM [facility] Bicarbonate, Arterial 21.6 20.0 - 26.0 mmol/L 11/02/2023 6:13 PM [facility] Base Excess, Arterial -3.9(L) -3.0 - 3.0 mmol/L 11/02/2023 6:13 PM [facility] Hemoglobin, Arterial 7.6(L) 13.7 - 16.5 g/dL 11/02/2023 6:13 PM [facility] Oxyhemoglobin, Arterial 99.2(H) 94.0 - 97.0 % 11/02/2023 6:13 PM [facility] Carboxyhemoglobin , Arterial 0.2 % 11/02/2023 6:13 PM [facility] Comment: Nonsmokers: 0.5-1.5% COHB ?? Smokers: Variable ??but usually less than 10% ?? Toxic: 20-30% COHB ?? Lethal: Greater than 60% COHB Methemoglobin, Arterial 0.0 <=1.5 % 11/02/2023 6:13 PM [facility] Sodium, Arterial 132(L) 135 - 145 mmol/L 11/02/2023 6:13 PM [facility] Potassium, Arterial 3.9 3.5 - 5.0 mmol/L 11/02/2023 6:13 PM [facility] Chloride, Arterial 100 98 - 107 mmol/L 11/02/2023 6:13 PM [facility] Lactate, Arterial 1.4 0.5 - 2.2 mmol/L 11/02/2023 6:13 PM EDT [facility] Fraction of Inspired Oxygen 100 % 11/02/2023 6:13 PM EDT [facility] PF Ratio 352 Ratio 11/02/2023 6:13 PM EDT [facility] Comment:PF ratio calculated using the non-temperature corrected pO2 result. IONIZED CALCIUM, ARTERIAL 1.03(L) 1.15 - 1.33 mmol/L 11/02/2023 6:13 PM EDT [facility] Glucose, Arterial 163 65 - 199 mg/dL 11/02/2023 6:13 PM EDT [facility] Comment:Glucose Concentratio n >=200 mg/dL plus symptoms is consistent with Diabetes Mellitus. Blood ARTERIAL BLOOD / Unknown 11/02/2023 6:12 PM EDT 11/02/2023 6:13 PM EDT Timi Person MD POINT OF CARE TEST ORDERABLES Performing Organization Address City/State/[facility] Co de Phone Number [facility] [place] [address] * (ABNORMAL) Blood Gas, Arterial POC (11/02/2023 4:46 PM EDT) pH, Arterial 7.35 7.35 - 7.45 11/02/2023 4:48 PM EDT [facility] PCO2, Arterial 44 35 - 45 mmHg 11/02/2023 4:48 PM EDT [facility] PO2, Arterial 72(L) 85 - 104 mmHg 11/02/2023 4:48 PM EDT [facility] Bicarbonate, Arterial 23.6 20.0 - 26.0 mmol/L 11/02/2023 4:48 PM EDT [facility] Base Excess, Arterial -2.1 -3.0 - 3.0 mmol/L 11/02/2023 4:48 PM EDT [facility] Hemoglobin, Arterial 8.5(L) 13.7 - 16.5 g/dL 11/02/2023 4:48 PM EDT [facility] Oxyhemoglobin, Arterial 91.2(L) 94.0 - 97.0 % 11/02/2023 4:48 PM EDT [facility] Carboxyhemoglobin , Arterial 0.3 % 11/02/2023 4:48 PM EDT [facility] Comment: Nonsmokers: 0.5-1.5% COHB ?? Smokers: Variable ??but usually less than 10% ?? Toxic: 20-30% COHB ?? Lethal: Greater than 60% COHB Methemoglobin, Arterial 0.3 <=1.5 % 11/02/2023 4:48 PM EDT [facility] Sodium, Arterial 131(L) 135 - 145 mmol/L 11/02/2023 4:48 PM EDT [facility] Potassium, Arterial 4.0 3.5 - 5.0 mmol/L 11/02/2023 4:48 PM EDT [facility] Chloride, Arterial 100 98 - 107 mmol/L 11/02/2023 4:48 PM EDT [facility] Lactate, Arterial 1.6 0.5 - 2.2 mmol/L 11/02/2023 4:48 PM EDT [facility] Fraction of Inspired Oxygen 100 % 11/02/2023 4:48 PM EDT [facility] PF Ratio 72 Ratio 11/02/2023 4:48 PM EDT [facility] Comment:PF ratio calculated using the non-temperature corrected pO2 result. IONIZED CALCIUM, ARTERIAL 1.03(L) 1.15 - 1.33 mmol/L 11/02/2023 4:48 PM EDT [facility] Glucose, Arterial 174 65 - 199 mg/dL 11/02/2023 4:48 PM EDT [facility] Comment:Glucose Concentratio n >=200 mg/dL plus symptoms is consistent with Diabetes Mellitus. Blood ARTERIAL BLOOD / Unknown 11/02/2023 4:46 PM EDT 11/02/2023 4:48 PM EDT Timi Person MD POINT OF CARE TEST ORDERABLES Performing Organization Address City/[facility]/ZIP Co de Phone Number [facility] [place] [address] * Potassium (11/02/2023 4:44 PM EDT) [facility] Potassium 4.0 3.5 - 5.0 mMol/L 11/02/2023 5:40 PM EDT [facility] Blood VENOUS BLOOD SPECIMEN / Unknown IP Care Team Draw / Unknown 11/02/2023 4:44 PM EDT 11/02/2023 5:00 PM EDT Timi Person MD CHEMISTRY ORDERABLE S Performing Organization Address [facility] [facility] Co de Phone Number [facility] [place] [address] * CT Chest wo Contrast (Generic) (11/02/2023 4:08 PM EDT) [facility] WORKSTATION ID [id number] RAD Anatomical Region Laterality Modality Chest Computed Tomogra phy Impressions 11/02/2023 5:13 PM EDT Atelectasis in the dependent lungs which is extensive in both lower lobes. Superimposed pneumonia would have to be excluded on clinical grounds. No pleural effusion. Thank you for letting us participate in the care of this patient. ??If you are a health care provider and have any questions regarding this report, please contact the number below. ??For patients who have questions please contact the health personal care assistant that requested your imaging first. ? Narrative 11/02/2023 5:13 PM EDT EXAMINATION: CT CHEST WO CONTRAST (GENERIC) CLINICAL HISTORY: POD3 CABG, ongoing hypoxemia, eval for etiology, effusions TECHNIQUE: Helical CT of the chest without intravenous contrast administration. Thin-section reconstructions as well as coronal and sagittal reformatted images were generated. COMPARISON: None FINDINGS: Lines and tubes: Right IJ pulmonary catheter terminates in the right interlobar pulmonary artery. Endotracheal tube terminates above the steve. Enteric tube terminates in the fundus of the stomach. Pulmonary parenchyma: Both lower lobes are completely atelectatic. There is dependent atelectasis in the upper lobes. Additional nodular densities in the lateral/dependent right middle lobe. Airways: No central endobronchial abnormality. Pleura: No pleural effusion. Lymph nodes: No lymphadenopathy. Heart and vasculature: Recent CABG. The heart is enlarged. No pericardial effusion. The aorta is normal in caliber. Upper abdomen: No significant findings. Skeletal structures: Recent median sternotomy Procedure Note Minesh Way MD - 11/02/2023 EXAMINATION: CT CHEST WO CONTRAST (GENERIC) CLINICAL HISTORY: POD3 CABG, ongoing hypoxemia, eval for etiology,effusions TECHNIQUE: Helical CT of the chest without intravenous contrastadministration. Thin-section reconstructions as well as coronal and sagittal reformattedimages were generated. COMPARISON: None FINDINGS: Lines and tubes: Right IJ pulmonary catheter terminates in the rightinterlobar pulmonary artery. Endotracheal tube terminates above the steve. Enterictube terminates in the fundus of the stomach. Pulmonary parenchyma: Both lower lobes are completely atelectatic. Thereis dependent atelectasis in the upper lobes. Additional nodular densities inthe lateral/dependent right middle lobe. Airways: No central endobronchial abnormality. Pleura: No pleural effusion. Lymph nodes: No lymphadenopathy. Heart and vasculature: Recent CABG. The heart is enlarged. Nopericardial effusion. The aorta is normal in caliber. Upper abdomen: No significant findings. Skeletal structures: Recent median sternotomy IMPRESSION Atelectasis in the dependent lungs which is extensive in both lowerlobes. Superimposed pneumonia would have to be excluded on clinical grounds. Nopleural effusion. Thank you for letting us participate in the care of this patient. If youare a health care provider and have any questions regarding this report,please contact the number below. For patients who have questions please contactthe health personal care assistant that requested your imaging first. Timi Person MD IMG CT ORDERABLES * POC, GLUCOSE (11/02/2023 2:36 PM EDT) Glucometer, POC 158 65 - 199 mg/dL 11/02/2023 2:36 PM EDT [facility] Comment:Supplemental ranges: <140 mg/dL before meals <180 mg/dL all other times of the day. Blood CAPILLARY BLOOD / Unknown 11/02/2023 2:36 PM EDT 11/02/2023 2:37 PM EDT Timi Person MD POINT OF CARE TEST ORDERABLES Performing Organization Address City/State/[facility] Co de Phone Number [facility] [place] [phone] * (ABNORMAL) Lower Respiratory Culture (11/02/2023 12:54 PM EDT) [facility] Signature Lower Respiratory Culture Rare mixed bacterial morphotypes suggestive of normal upper respiratory adrian 11/04/2023 8:16 AM EDT [facility] Gram Stain No squamous epithelial cells(A) 11/04/2023 8:16 AM EDT [facility] Gram Stain Moderate neutrophils(A) 11/04/2023 8:16 AM EDT [facility] Gram Stain Few Gram negative rods(A) 11/04/2023 8:16 AM EDT [facility] Gram Stain Few Gram positive cocci(A) 11/04/2023 8:16 AM EDT [facility] Sputum Induced LOWER RESPIRATORY TRACT STRUCTURE / Unknown 11/02/2023 12:54 PM EDT 11/02/2023 1:40 PM EDT Timi Person MD MICROBIOLOGY - GENE RAL ORDERABLES [facility] [place] [address] * POC, GLUCOSE (11/02/2023 12:52 PM EDT) Glucometer, POC 141 65 - 199 mg/dL 11/02/2023 12:52 PM EDT [facility] Comment:Supplemental ranges: <140 mg/dL before meals <180 mg/dL all other times of the day. Blood CAPILLARY BLOOD / Unknown 11/02/2023 12:52 PM EDT 11/02/2023 12:52 PM EDT Timi Person MD POINT OF CARE TEST ORDERABLES Performing Organization Address City/[facility]/ZIP Co de Phone Number [facility] [place] [address] * (ABNORMAL) Blood Gas, Arterial POC (11/02/2023 11:48 AM EDT) pH, Arterial 7.39 7.35 - 7.45 11/02/2023 11:49 AM EDT [facility] PCO2, Arterial 43 35 - 45 mmHg 11/02/2023 11:49 AM EDT [facility] PO2, Arterial 81(L) 85 - 104 mmHg 11/02/2023 11:49 AM EDT [facility] Bicarbonate, Arterial 24.9 20.0 - 26.0 mmol/L 11/02/2023 11:49 AM EDT [facility] Base Excess, Arterial -0.1 -3.0 - 3.0 mmol/L 11/02/2023 11:49 AM EDT [facility] Hemoglobin, Arterial 8.6(L) 13.7 - 16.5 g/dL 11/02/2023 11:49 AM EDT [facility] Oxyhemoglobin, Arterial 94.1 94.0 - 97.0 % 11/02/2023 11:49 AM EDT [facility] Carboxyhemoglobin , Arterial 0.2 % 11/02/2023 11:49 AM [facility] Comment: Nonsmokers: 0.5-1.5% COHB ?? Smokers: Variable ??but usually less than 10% ?? Toxic: 20-30% COHB ?? Lethal: Greater than 60% COHB Methemoglobin, Arterial 0.3 <=1.5 % 11/02/2023 11:49 AM EDT [facility] Sodium, Arterial 136 135 - 145 mmol/L 11/02/2023 11:49 AM [facility] Potassium, Arterial 3.8 3.5 - 5.0 mmol/L 11/02/2023 11:49 AM [facility] Chloride, Arterial 101 98 - 107 mmol/L 11/02/2023 11:49 AM [facility] Lactate, Arterial 2.0 0.5 - 2.2 mmol/L 11/02/2023 11:49 AM [facility] Fraction of Inspired Oxygen 100 % 11/02/2023 11:49 AM [facility] PF Ratio 81 Ratio 11/02/2023 11:49 AM [facility] Comment:PF ratio calculated using the non-temperature corrected pO2 result. IONIZED CALCIUM, ARTERIAL 1.03(L) 1.15 - 1.33 mmol/L 11/02/2023 11:49 AM [facility] Glucose, Arterial 143 65 - 199 mg/dL 11/02/2023 11:49 AM [facility] Comment:Glucose Concentratio n >=200 mg/dL plus symptoms is consistent with Diabetes Mellitus. Blood ARTERIAL BLOOD / Unknown 11/02/2023 11:48 AM EDT 11/02/2023 11:49 AM EDT Timi Person MD POINT OF CARE TEST ORDERABLES [facility] [place] [address] * (ABNORMAL) Basic Metabolic Panel (11/02/2023 11:46 AM EDT) Glucose 139 65 - 199 mg/dL 11/02/2023 1:04 PM [facility] Comment:Glucose Concentratio n >=200 mg/dL plus symptoms is consistent with Diabetes Mellitus. Blood Urea Nitrogen 51(H) 10 - 20 mg/dL 11/02/2023 1:04 PM [facility] Creatinine 4.98(H) 0.80 - 1.50 mg/dL 11/02/2023 1:04 PM [facility] Sodium 142 135 - 145 mMol/L 11/02/2023 1:04 PM [facility] Potassium 3.9 3.5 - 5.0 mMol/L 11/02/2023 1:04 PM [facility] Chloride 101 98 - 107 mMol/L 11/02/2023 1:04 PM [facility] Carbon Dioxide 22 22 - 31 mMol/L 11/02/2023 1:04 PM [facility] Anion Gap 19(H) 5 - 15 mMol/L 11/02/2023 1:04 PM [facility] Calcium 7.9(L) 8.5 - 10.5 mg/dL 11/02/2023 1:04 PM [facility] Est Glomerular Filtration Rate - Male 14 mL/min/1. 73 m?? 11/02/2023 1:04 PM [facility] Comment: This patient's estimated GFR [...] Unknown IP Care Team Draw / Unknown 11/02/2023 11:46 AM EDT 11/02/2023 11:59 AM EDT Timi Person MD CHEMISTRY ORDERABLE S Performing Organization Address [facility] Co de Phone Number [facility] [place] [address] * POC, GLUCOSE (11/02/2023 10:10 AM EDT) Glucometer, POC 152 65 - 199 mg/dL 11/02/2023 10:10 AM EDT [facility] Comment:Supplemental ranges: <140 mg/dL before meals <180 mg/dL all other times of the day. Blood CAPILLARY BLOOD / Unknown 11/02/2023 10:10 AM EDT 11/02/2023 10:10 AM EDT Timi Person MD POINT OF CARE TEST ORDERABLES Performing Organization Address [facility] Co de Phone Number [facility] [place] [address] * XR Chest One View (11/02/2023 8:16 AM EDT) WORKSTATION ID [id number] DH RAD Anatomical Region Laterality Modality Chest N/A Digital Radiogra phy Impressions 11/02/2023 8:50 AM EDT Status post CABG. Persistent left basilar opacity silhouetting the hemidiaphragm likely atelectasis and/or small pleural effusion. Left lower lobe pneumonia could also have this appearance. I have personally reviewed the image(s) and the resident's interpretation and agree with the findings, Minesh Way MD at 11/02/2023 8:50 AM Thank you for letting us participate in the care of this patient. ??If you are a health care provider and have any questions regarding this report, please contact the number below. ??For patients who have questions please contact the health personal care assistant that requested your imaging first. ? Narrative 11/02/2023 8:50 AM EDT EXAMINATION: XR CHEST ONE VIEW CLINICAL HISTORY: s/p CABG, poor oxygenation, eval for interval change TECHNIQUE: 1 view of the chest COMPARISON: Chest radiograph 10/31/2023 FINDINGS: Support devices: * ??Unchanged right IJ approach pulmonary arterial catheter projecting over the right interlobar pulmonary artery. * ??Endotracheal tube is in satisfactory position * ??Enteric tube terminates in the stomach Low lung volumes. Persistent left basilar opacity silhouetting the hemidiaphragm. The right lung is clear. No pneumothorax. The cardiomediastinal silhouette is unchanged. Median sternotomy wires intact. Procedure Note Minesh Way MD - 11/02/2023 EXAMINATION: XR CHEST ONE VIEW CLINICAL HISTORY: s/p CABG, poor oxygenation, eval for interval change TECHNIQUE: 1 view of the chest COMPARISON: Chest radiograph 10/31/2023 FINDINGS: Support devices: * Unchanged right IJ approach pulmonary arterial catheter projecting overthe right interlobar pulmonary artery. * Endotracheal tube is in satisfactory position * Enteric tube terminates in the stomach Low lung volumes. Persistent left basilar opacity silhouetting the hemidiaphragm. The right lung is clear. No pneumothorax. The cardiomediastinal silhouette is unchanged. Median sternotomy wiresintact. IMPRESSION Status post CABG. Persistent left basilar opacity silhouetting thehemidiaphragm likely atelectasis and/or small pleural effusion. Left lower lobepneumonia could also have this appearance. I have personally reviewed the image(s) and the resident's interpretationand agree with the findings, Minesh Way MD at 11/02/2023 8:50 AM Thank you for letting us participate in the care of this patient. If youare a health care provider and have any questions regarding this report,please contact the number below. For patients who have questions please contactthe health personal care assistant that requested your imaging first. Timi Person MD IMG DX ORDERABLES * (ABNORMAL) Blood Gas, Arterial POC (11/02/2023 7:52 AM EDT) pH, Arterial 7.39 7.35 - 7.45 11/02/2023 7:54 AM EDT [facility] PCO2, Arterial 41 35 - 45 mmHg 11/02/2023 7:54 AM [facility] PO2, Arterial 57(L) 85 - 104 mmHg 11/02/2023 7:54 AM EDT [facility] Bicarbonate, Arterial 24.0 20.0 - 26.0 mmol/L 11/02/2023 7:54 AM [facility] Base Excess, Arterial -1.0 -3.0 - 3.0 mmol/L 11/02/2023 7:54 AM [facility] Hemoglobin, Arterial 8.1(L) 13.7 - 16.5 g/dL 11/02/2023 7:54 AM [facility] Oxyhemoglobin, Arterial 86.4(L) 94.0 - 97.0 % 11/02/2023 7:54 AM [facility] Carboxyhemoglobin , Arterial 0.8 % 11/02/2023 7:54 AM [facility] Comment: Nonsmokers: 0.5-1.5% COHB ?? Smokers: Variable ??but usually less than 10% ?? Toxic: 20-30% COHB ?? Lethal: Greater than 60% COHB Methemoglobin, Arterial 0.3 <=1.5 % 11/02/2023 7:54 AM EDT [facility] Sodium, Arterial 134(L) 135 - 145 mmol/L 11/02/2023 7:54 AM EDT [facility] Potassium, Arterial 4.2 3.5 - 5.0 mmol/L 11/02/2023 7:54 AM EDT [facility] Chloride, Arterial 101 98 - 107 mmol/L 11/02/2023 7:54 AM EDT [facility] Lactate, Arterial 2.0 0.5 - 2.2 mmol/L 11/02/2023 7:54 AM EDT [facility] Fraction of Inspired Oxygen 70 % 11/02/2023 7:[facility] PF Ratio 81 Ratio 11/02/2023 7:54 AM [facility] Comment:PF ratio calculated using the non-temperature corrected pO2 result. IONIZED CALCIUM, ARTERIAL 1.03(L) 1.15 - 1.33 mmol/L 11/02/2023 7:54 AM EDT [facility] Glucose, Arterial 134 65 - 199 mg/dL 11/02/2023 7:54 AM EDT [facility] Comment:Glucose Concentratio n >=200 mg/dL plus symptoms is consistent with Diabetes Mellitus. Blood ARTERIAL BLOOD / Unknown 11/02/2023 7:52 AM EDT 11/02/2023 7:54 AM EDT Timi Person MD POINT OF CARE TEST ORDERABLES [facility] [place] [address] * (ABNORMAL) Blood Gas, Arterial POC (11/02/2023 6:35 AM EDT) pH, Arterial 7.37 7.35 - 7.45 11/02/2023 6:36 AM EDT [facility] PH Corrected, Arterial 7.36 7.35 - 7.45 11/02/2023 6:36 AM EDT [facility] PCO2, Arterial 39 35 - 45 mmHg 11/02/2023 6:36 AM [facility] PCO2 Corrected, Arterial 40 35 - 45 mmHg 11/02/2023 6:36 AM [facility] PO2, Arterial 65(L) 85 - 104 mmHg 11/02/2023 6:36 AM [facility] PO2 Corrected, Arterial 68.1(L) 85 - 104 mmHg 11/02/2023 6:36 AM [facility] Bicarbonate, Arterial 22.0 20.0 - 26.0 mmol/L 11/02/2023 6:36 AM [facility] Base Excess, Arterial -3.3(L) -3.0 - 3.0 mmol/L 11/02/2023 6:36 AM [facility] Hemoglobin, Arterial 7.9(L) 13.7 - 16.5 g/dL 11/02/2023 6:36 AM [facility] Oxyhemoglobin, Arterial 90.0(L) 94.0 - 97.0 % 11/02/2023 6:36 AM [facility] Carboxyhemoglobin , Arterial 0.8 % 11/02/2023 6:36 AM [facility] Comment: Nonsmokers: 0.5-1.5% COHB ?? Smokers: Variable ??but usually less than 10% ?? Toxic: 20-30% COHB ?? Lethal: Greater than 60% COHB Methemoglobin, Arterial 0.3 <=1.5 % 11/02/2023 6:36 AM [facility] Sodium, Arterial 135 135 - 145 mmol/L 11/02/2023 6:36 AM [facility] Potassium, Arterial 3.8 3.5 - 5.0 mmol/L 11/02/2023 6:36 AM [facility] Chloride, Arterial 102 98 - 107 mmol/L 11/02/2023 6:36 AM [facility] Lactate, Arterial 1.3 0.5 - 2.2 mmol/L 11/02/2023 6:36 AM EDT [facility] Fraction of Inspired Oxygen 65 % 11/02/2023 6:36 AM EDT [facility] PF Ratio 100 Ratio 11/02/2023 6:36 AM EDT [facility] Comment:PF ratio calculated using the non-temperature corrected pO2 result. Patient Temperature 37.6 C 11/02/2023 6:36 AM EDT [facility] IONIZED CALCIUM, ARTERIAL 1.05(L) 1.15 - 1.33 mmol/L 11/02/2023 6:36 AM EDT [facility] Glucose, Arterial 113 65 - 199 mg/dL 11/02/2023 6:36 AM EDT [facility] Comment:Glucose Concentratio n >=200 mg/dL plus symptoms is consistent with Diabetes Mellitus. Blood ARTERIAL BLOOD / Unknown 11/02/2023 6:35 AM EDT 11/02/2023 6:36 AM EDT Timi Person MD POINT OF CARE TEST ORDERABLES [facility] [place] [address] * POC, GLUCOSE (11/02/2023 6:34 AM EDT) Glucometer, POC 122 65 - 199 mg/dL 11/02/2023 6:35 AM EDT [facility] Comment:Supplemental ranges: <140 mg/dL before meals <180 mg/dL all other times of the day. Blood CAPILLARY BLOOD / Unknown 11/02/2023 6:34 AM EDT 11/02/2023 6:35 AM EDT Timi Person MD POINT OF CARE TEST ORDERABLES [facility] [place] [address] * POC, GLUCOSE (11/02/2023 5:30 AM EDT) Glucometer, POC 112 65 - 199 mg/dL 11/02/2023 5:31 AM EDT [facility] Comment:Supplemental ranges: <140 mg/dL before meals <180 mg/dL all other times of the day. Blood CAPILLARY BLOOD / Unknown 11/02/2023 5:30 AM EDT 11/02/2023 5:31 AM EDT Timi Person MD POINT OF CARE TEST ORDERABLES Performing Organization Address City/[facility]/ZIP Co de Phone Number [facility] [place] [address] * POC, GLUCOSE (11/02/2023 4:02 AM EDT) Glucometer, POC 111 65 - 199 mg/dL 11/02/2023 4:03 AM EDT [facility] Comment:Supplemental ranges: <140 mg/dL before meals <180 mg/dL all other times of the day. Blood CAPILLARY BLOOD / Unknown 11/02/2023 4:02 AM EDT 11/02/2023 4:03 AM EDT Timi Person MD POINT OF CARE TEST ORDERABLES Performing Organization Address City/[facility]/ZIP Co de Phone Number [facility] [place] [address] * POC, GLUCOSE (11/02/2023 2:10 AM EDT) Glucometer, POC 118 65 - 199 mg/dL 11/02/2023 2:11 AM EDT [facility] Comment:Supplemental ranges: <140 mg/dL before meals <180 mg/dL all other times of the day. Blood CAPILLARY BLOOD / Unknown 11/02/2023 2:10 AM EDT 11/02/2023 2:11 AM EDT Timi Person MD POINT OF CARE TEST ORDERABLES [facility] [place] [address] * (ABNORMAL) Basic Metabolic Panel (11/02/2023 12:02 AM EDT) Glucose 124 65 - 199 mg/dL 11/02/2023 12:40 AM [facility] Comment:Glucose Concentratio n >=200 mg/dL plus symptoms is consistent with Diabetes Mellitus. Blood Urea Nitrogen 47(H) 10 - 20 mg/dL 11/02/2023 12:40 AM [facility] Creatinine 4.85(H) 0.80 - 1.50 mg/dL 11/02/2023 12:40 AM [facility] Sodium 139 135 - 145 mMol/L 11/02/2023 12:40 AM [facility] Potassium 3.9 3.5 - 5.0 mMol/L 11/02/2023 12:40 AM [facility] Chloride 100 98 - 107 mMol/L 11/02/2023 12:40 AM [facility] Carbon Dioxide 23 22 - 31 mMol/L 11/02/2023 12:40 AM [facility] Anion Gap 16(H) 5 - 15 mMol/L 11/02/2023 12:40 AM [facility] Calcium 8.4(L) 8.5 - 10.5 mg/dL 11/02/2023 12:40 AM [facility] Est Glomerular Filtration Rate - Male 14 mL/min/1. 73 m?? 11/02/2023 12:40 AM [facility] Comment: This patient's estimated GFR [...] Unknown IP Care Team Draw / Unknown 11/02/2023 12:02 AM EDT 11/02/2023 12:10 AM EDT Timi Person MD CHEMISTRY ORDERABLE S [facility] [place] [address] * (ABNORMAL) CBC (with Diff) (11/02/2023 12:02 AM EDT) White Blood Cell 15.24(H) 4.00 - 9.50 x10(3)/mc L 11/02/2023 12:19 AM EDT [facility] Red Blood Cell 3.95(L) 4.58 - 5.54 x10(6)/mc L 11/02/2023 12:19 AM EDT [facility] Hemoglobin 8.0(L) 13.7 - 16.5 g/dL 11/02/2023 12:19 AM [facility] Hematocrit 26.1(L) 40.5 - 48.5 % 11/02/2023 12:19 AM T [facility] Mean Cell Volume 66.1(L) 82.9 - 93.1 fL 11/02/2023 12:19 AM T [facility] Mean Cell Hemoglobin 20.3(L) 27.5 - 32.1 pg 11/02/2023 12:19 AM [facility] Mean Cell Hemoglobin Concentration 30.7(L) 32.0 - 35.7 g/dL 11/02/2023 12:19 AM [facility] Platelet 174 145 - 357 x10(3)/mc L 11/02/2023 12:19 AM [facility] Mean Platelet Volume 11.2 7.6 - 12.9 fL 11/02/2023 12:19 AM [facility] RDW Standard Deviation 43.6 36.0 - 45.0 fL 11/02/2023 12:19 AM [facility] RDW coefficient of variation 18.5(H) 11.4 - 13.8 % 11/02/2023 12:19 AM [facility] NRBC% auto 0.0 % 11/02/2023 12:19 AM [facility] NRBC Absolute 0.00 0.00 - 0.00 x10(3)/mc L 11/02/2023 12:19 AM [facility] Neutrophil % 88.9 % 11/02/2023 12:19 AM [facility] Neutrophil Absolute (ANC) - Automated 13.55(H) 1.70 - 6.10 x10(3)/mc L 11/02/2023 12:19 AM [facility] Lymph % 4.0 % 11/02/2023 12:19 AM [facility] Lymph Absolute 0.61(L) 0.90 - 3.20 x10(3)/mc L 11/02/2023 12:19 AM [facility] Monocyte % 6.2 % 11/02/2023 12:19 AM [facility] Monocyte Absolute 0.94(H) 0.30 - 0.90 x10(3)/mc L 11/02/2023 12:19 AM [facility] Eos % 0.1 % 11/02/2023 12:19 AM [facility] Eos Absolute 0.02 0.00 - 0.40 x10(3)/mc L 11/02/2023 12:19 AM [facility] Basophil % 0.2 % 11/02/2023 12:19 AM [facility] Baso Absolute 0.03 0.00 - 0.10 x10(3)/mc L 11/02/2023 12:19 AM [facility] Immature Gran % 0.6 % 12:19 AM EDT [facility] Immature Gran Absolute 0.09(H) 0.00 - 0.04 x10(3)/mc L 11/02/2023 12:19 AM EDT [facility] Blood VENOUS BLOOD SPECIMEN / Unknown IP Care Team Draw / Unknown 11/02/2023 12:02 AM EDT 11/02/2023 12:10 AM EDT Timi Person MD HEMATOLOGY ORDERABL ES Performing Organization Address City/[facility]/ZIP Co de Phone Number [facility] [place] [address] * POC, GLUCOSE (11/01/2023 11:54 PM EDT) Glucometer, POC 124 65 - 199 mg/dL 11/01/2023 11:55 PM EDT [facility] Comment:Supplemental ranges: <140 mg/dL before meals <180 mg/dL all other times of the day. Blood CAPILLARY BLOOD / Unknown 11/01/2023 11:54 PM EDT 11/01/2023 11:55 PM EDT Timi Person MD POINT OF CARE TEST ORDERABLES Performing Organization Address City/[facility]/ZIP Co de Phone Number [facility] [place] [address] * POC, GLUCOSE (11/01/2023 10:01 PM EDT) Glucometer, POC 121 65 - 199 mg/dL 11/01/2023 10:01 PM EDT [facility] Comment:Supplemental ranges: <140 mg/dL before meals <180 mg/dL all other times of the day. Blood CAPILLARY BLOOD / Unknown 11/01/2023 10:01 PM EDT 11/01/2023 10:01 PM EDT Timi Person MD POINT OF CARE TEST ORDERABLES [facility] [place] [address] * POC, GLUCOSE (11/01/2023 8:57 PM EDT) Glucometer, POC 128 65 - 199 mg/dL 11/01/2023 8:57 PM EDT [facility] Comment:Supplemental ranges: <140 mg/dL before meals <180 mg/dL all other times of the day. Blood CAPILLARY BLOOD / Unknown 11/01/2023 8:57 PM EDT 11/01/2023 8:57 PM EDT Timi Person MD POINT OF CARE TEST ORDERABLES [facility] [place] [address] * POC, GLUCOSE (11/01/2023 7:42 PM EDT) Glucometer, POC 121 65 - 199 mg/dL 11/01/2023 7:42 PM EDT [facility] Comment:Supplemental ranges: <140 mg/dL before meals <180 mg/dL all other times of the day. Blood CAPILLARY BLOOD / Unknown 11/01/2023 7:42 PM EDT 11/01/2023 7:42 PM EDT Timi Person MD POINT OF CARE TEST ORDERABLES [facility] [place] [address] * POC, GLUCOSE (11/01/2023 6:20 PM EDT) Glucometer, POC 135 65 - 199 mg/dL 11/01/2023 6:20 PM EDT [facility] Comment:Supplemental ranges: <140 mg/dL before meals <180 mg/dL all other times of the day. Blood CAPILLARY BLOOD / Unknown 11/01/2023 6:20 PM EDT 11/01/2023 6:20 PM EDT Timi Person MD POINT OF CARE TEST ORDERABLES [facility] [place] [address] * POC, GLUCOSE (11/01/2023 5:34 PM EDT) Glucometer, POC 127 65 - 199 mg/dL 11/01/2023 5:34 PM EDT [facility] Comment:Supplemental ranges: <140 mg/dL before meals <180 mg/dL all other times of the day. Blood CAPILLARY BLOOD / Unknown 11/01/2023 5:34 PM EDT 11/01/2023 5:34 PM EDT Timi Person MD POINT OF CARE TEST ORDERABLES Performing Organization Address City/[facility]/ZIP Co de Phone Number [facility] [place] [address] * (ABNORMAL) Blood Gas, Arterial POC (11/01/2023 4:18 PM EDT) pH, Arterial 7.37 7.35 - 7.45 11/01/2023 4:19 PM EDT [facility] PCO2, Arterial 36 35 - 45 mmHg 11/01/2023 4:19 PM EDT [facility] PO2, Arterial 67(L) 85 - 104 mmHg 11/01/2023 4:19 PM EDT [facility] Bicarbonate, Arterial 20.7 20.0 - 26.0 mmol/L 11/01/2023 4:19 PM EDT [facility] Base Excess, Arterial -4.5(L) -3.0 - 3.0 mmol/L 11/01/2023 4:19 PM EDT [facility] Hemoglobin, Arterial 9.0(L) 13.7 - 16.5 g/dL 11/01/2023 4:19 PM EDT [facility] Oxyhemoglobin, Arterial 91.0(L) 94.0 - 97.0 % 11/01/2023 4:19 PM EDT [facility] Carboxyhemoglobin , Arterial 0.1 % 11/01/2023 4:19 PM [facility] Comment: Nonsmokers: 0.5-1.5% COHB ?? Smokers: Variable ??but usually less than 10% ?? Toxic: 20-30% COHB ?? Lethal: Greater than 60% COHB Methemoglobin, Arterial 0.3 <=1.5 % 11/01/2023 4:19 PM EDT [facility] Sodium, Arterial 132(L) 135 - 145 mmol/L 11/01/2023 4:19 PM EDT [facility] Potassium, Arterial 4.2 3.5 - 5.0 mmol/L 11/01/2023 4:19 PM [facility] Chloride, Arterial 100 98 - 107 mmol/L 11/01/2023 4:19 PM [facility] Lactate, Arterial 1.7 0.5 - 2.2 mmol/L 11/01/2023 4:19 PM [facility] Fraction of Inspired Oxygen 50 % 11/01/2023 4:19 PM [facility] PF Ratio 134 Ratio 11/01/2023 4:19 PM [facility] Comment:PF ratio calculated using the non-temperature corrected pO2 result. IONIZED CALCIUM, ARTERIAL 1.10(L) 1.15 - 1.33 mmol/L 11/01/2023 4:19 PM EDT [facility] Glucose, Arterial 140 65 - 199 mg/dL 11/01/2023 4:19 PM [facility] Comment:Glucose Concentratio n >=200 mg/dL plus symptoms is consistent with Diabetes Mellitus. Blood ARTERIAL BLOOD / Unknown 11/01/2023 4:18 PM EDT 11/01/2023 4:19 PM EDT Timi Person MD POINT OF CARE TEST ORDERABLES [facility] [place] [address] * Potassium (11/01/2023 4:16 PM EDT) [facility] Potassium 4.4 3.5 - 5.0 mMol/L 11/01/2023 5:25 PM EDT [facility] Blood VENOUS BLOOD SPECIMEN / Unknown IP Care Team Draw / Unknown 11/01/2023 4:16 PM EDT 11/01/2023 4:42 PM EDT Timi Person MD CHEMISTRY ORDERABLE S [facility] [place] [address] * POC, GLUCOSE (11/01/2023 3:04 PM EDT) [facility] Glucometer, POC 167 65 - 199 mg/dL 11/01/2023 3:05 PM EDT [facility] Comment:Supplemental ranges: <140 mg/dL before meals <180 mg/dL all other times of the day. Blood CAPILLARY BLOOD / Unknown 11/01/2023 3:04 PM EDT 11/01/2023 3:05 PM EDT Timi Person MD POINT OF CARE TEST ORDERABLES [facility] [place] [address] * (ABNORMAL) Blood Gas, Arterial POC (11/01/2023 1:58 PM EDT) pH, Arterial 7.38 7.35 - 7.45 11/01/2023 1:59 PM EDT [facility] PCO2, Arterial 39 35 - 45 mmHg 11/01/2023 1:59 PM EDT [facility] PO2, Arterial 68(L) 85 - 104 mmHg 11/01/2023 1:59 PM EDT [facility] Bicarbonate, Arterial 22.6 20.0 - 26.0 mmol/L 11/01/2023 1:59 PM [facility] Base Excess, Arterial -2.5 -3.0 - 3.0 mmol/L 11/01/2023 1:59 PM [facility] Hemoglobin, Arterial 8.9(L) 13.7 - 16.5 g/dL 11/01/2023 1:59 PM [facility] Oxyhemoglobin, Arterial 91.8(L) 94.0 - 97.0 % 11/01/2023 1:59 PM [facility] Carboxyhemoglobin , Arterial 0.2 % 11/01/2023 1:59 PM [facility] Comment: Nonsmokers: 0.5-1.5% COHB ?? Smokers: Variable ??but usually less than 10% ?? Toxic: 20-30% COHB ?? Lethal: Greater than 60% COHB Methemoglobin, Arterial 0.3 <=1.5 % 11/01/2023 1:59 PM [facility] Sodium, Arterial 130(L) 135 - 145 mmol/L 11/01/2023 1:59 PM [facility] Potassium, Arterial 4.3 3.5 - 5.0 mmol/L 11/01/2023 1:59 PM [facility] Chloride, Arterial 100 98 - 107 mmol/L 11/01/2023 1:59 PM [facility] Lactate, Arterial 1.8 0.5 - 2.2 mmol/L 11/01/2023 1:59 PM [facility] Fraction of Inspired Oxygen 40 % 11/01/2023 1:59 PM [facility] PF Ratio 170 Ratio 11/01/2023 1:59 PM [facility] Comment:PF ratio calculated using the non-temperature corrected pO2 result. IONIZED CALCIUM, ARTERIAL 1.09(L) 1.15 - 1.33 mmol/L 11/01/2023 1:59 PM [facility] Glucose, Arterial 162 65 - 199 mg/dL 11/01/2023 1:59 PM EDT [facility] Comment:Glucose Concentratio n >=200 mg/dL plus symptoms is consistent with Diabetes Mellitus. Blood ARTERIAL BLOOD / Unknown 11/01/2023 1:58 PM EDT 11/01/2023 1:59 PM EDT Timi Person MD POINT OF CARE TEST ORDERABLES Performing Organization Address City/[facility] Co de Phone Number [facility] [place] [address] * POC, GLUCOSE (11/01/2023 1:02 PM EDT) Glucometer, POC 161 65 - 199 mg/dL 11/01/2023 1:02 PM EDT [facility] Comment:Supplemental ranges: <140 mg/dL before meals <180 mg/dL all other times of the day. Blood CAPILLARY BLOOD / Unknown 11/01/2023 1:02 PM EDT 11/01/2023 1:02 PM EDT Timi Person MD POINT OF CARE TEST ORDERABLES Performing Organization Address City/[facility] Co de Phone Number [facility] [place] [address] * (ABNORMAL) Blood Gas, Arterial POC (11/01/2023 11:36 AM EDT) pH, Arterial 7.36 7.35 - 7.45 11/01/2023 11:38 AM EDT [facility] PCO2, Arterial 41 35 - 45 mmHg 11/01/2023 11:38 AM EDT [facility] PO2, Arterial 72(L) 85 - 104 mmHg 11/01/2023 11:38 AM EDT [facility] Bicarbonate, Arterial 22.2 20.0 - 26.0 mmol/L 11/01/2023 11:38 AM EDT [facility] Base Excess, Arterial -3.4(L) -3.0 - 3.0 mmol/L 11/01/2023 11:38 AM [facility] Hemoglobin, Arterial 9.2(L) 13.7 - 16.5 g/dL 11/01/2023 11:38 AM [facility] Oxyhemoglobin, Arterial 92.2(L) 94.0 - 97.0 % 11/01/2023 11:38 AM [facility] Carboxyhemoglobin , Arterial 0.2 % 11/01/2023 11:38 AM [facility] Comment: Nonsmokers: 0.5-1.5% COHB ?? Smokers: Variable ??but usually less than 10% ?? Toxic: 20-30% COHB ?? Lethal: Greater than 60% COHB Methemoglobin, Arterial 0.3 <=1.5 % 11/01/2023 11:38 AM [facility] Sodium, Arterial 130(L) 135 - 145 mmol/L 11/01/2023 11:38 AM [facility] Potassium, Arterial 4.5 3.5 - 5.0 mmol/L 11/01/2023 11:38 AM [facility] Chloride, Arterial 100 98 - 107 mmol/L 11/01/2023 11:38 AM [facility] Lactate, Arterial 2.1 0.5 - 2.2 mmol/L 11/01/2023 11:38 AM [facility] Fraction of Inspired Oxygen 30 % 11/01/2023 11:38 AM [facility] PF Ratio 240 Ratio 11/01/2023 11:38 AM [facility] Comment:PF ratio calculated using the non-temperature corrected pO2 result. IONIZED CALCIUM, ARTERIAL 1.10(L) 1.15 - 1.33 mmol/L 11/01/2023 11:38 AM [facility] Glucose, Arterial 189 65 - 199 mg/dL 11/01/2023 11:38 AM [facility] Comment:Glucose Concentratio n >=200 mg/dL plus symptoms is consistent with Diabetes Mellitus. Blood ARTERIAL BLOOD / Unknown 11/01/2023 11:36 AM EDT 11/01/2023 11:38 AM EDT Timi Person MD POINT OF CARE TEST ORDERABLES [facility] [place] [address] * (ABNORMAL) Basic Metabolic Panel (11/01/2023 11:34 AM EDT) Glucose 191 65 - 199 mg/dL 11/01/2023 12:12 PM EDT [facility] Comment:Glucose Concentratio n >=200 mg/dL plus symptoms is consistent with Diabetes Mellitus. Blood Urea Nitrogen 46(H) 10 - 20 mg/dL 11/01/2023 12:12 PM EDT [facility] Creatinine 4.47(H) 0.80 - 1.50 mg/dL 11/01/2023 12:12 PM EDT [facility] Sodium 136 135 - 145 mMol/L 11/01/2023 12:12 PM EDT [facility] Potassium 4.6 3.5 - 5.0 mMol/L 11/01/2023 12:12 PM EDT [facility] Chloride 101 98 - 107 mMol/L 11/01/2023 12:12 PM EDT [facility] Carbon Dioxide 21(L) 22 - 31 mMol/L 11/01/2023 12:12 PM EDT [facility] Anion Gap 14 5 - 15 mMol/L 11/01/2023 12:12 PM EDT [facility] Calcium 8.2(L) 8.5 - 10.5 mg/dL 11/01/2023 12:12 PM EDT [facility] Est Glomerular Filtration Rate - Male 16 mL/min/1. 73 m?? 11/01/2023 12:12 PM EDT [facility] Comment: This patient's estimated GFR [...] IP Care Team Draw / Unknown 11/01/2023 11:34 AM EDT 11/01/2023 11:38 AM EDT Timi Person MD CHEMISTRY ORDERABLE S Performing Organization Address City/[facility]/ZIP Co de Phone Number [facility] [place] [address] * POC, GLUCOSE (11/01/2023 10:12 AM EDT) Glucometer, POC 194 65 - 199 mg/dL 11/01/2023 10:12 AM EDT [facility] Comment:Supplemental ranges: <140 mg/dL before meals <180 mg/dL all other times of the day. Blood CAPILLARY BLOOD / Unknown 11/01/2023 10:12 AM EDT 11/01/2023 10:12 AM EDT Timi Person MD POINT OF CARE TEST ORDERABLES [facility] [place] [address] * (ABNORMAL) POC, GLUCOSE (11/01/2023 9:19 AM EDT) Glucometer, POC 224(H) 65 - 199 mg/dL 11/01/2023 9:19 AM EDT [facility] Comment:Supplemental ranges: <140 mg/dL before meals <180 mg/dL all other times of the day. Blood CAPILLARY BLOOD / Unknown 11/01/2023 9:19 AM EDT 11/01/2023 9:19 AM EDT Timi Person MD POINT OF CARE TEST ORDERABLES [facility] [place] [address] * (ABNORMAL) Blood Gas, Arterial POC (11/01/2023 8:06 AM EDT) pH, Arterial 7.33(L) 7.35 - 7.45 11/01/2023 8:08 AM EDT [facility] PCO2, Arterial 38 35 - 45 mmHg 11/01/2023 8:[facility] PO2, Arterial 81(L) 85 - 104 mmHg 11/01/2023 8:[facility] Bicarbonate, Arterial 19.4(L) 20.0 - 26.0 mmol/L 11/01/2023 8:08 AM [facility] Base Excess, Arterial -6.6(L) -3.0 - 3.0 mmol/L 11/01/2023 8:08 AM [facility] Hemoglobin, Arterial 10.2(L) 13.7 - 16.5 g/dL 11/01/2023 8:08 AM [facility] Oxyhemoglobin, Arterial 93.4(L) 94.0 - 97.0 % 11/01/2023 8:08 AM EDT [facility] Carboxyhemoglobin , Arterial 0.3 % 11/01/2023 8:08 AM [facility] Comment: Nonsmokers: 0.5-1.5% COHB ?? Smokers: Variable ??but usually less than 10% ?? Toxic: 20-30% COHB ?? Lethal: Greater than 60% COHB Methemoglobin, Arterial 0.3 <=1.5 % 11/01/2023 8:08 AM EDT [facility] Sodium, Arterial 129(L) 135 - 145 mmol/L 11/01/2023 8:08 AM EDT [facility] Potassium, Arterial 4.3 3.5 - 5.0 mmol/L 11/01/2023 8:08 AM EDT [facility] Chloride, Arterial 100 98 - 107 mmol/L 11/01/2023 8:08 AM EDT [facility] Lactate, Arterial 2.2 0.5 - 2.2 mmol/L 11/01/2023 8:08 AM EDT [facility] Fraction of Inspired Oxygen 50 % 11/01/2023 8:08 AM EDT [facility] PF Ratio 162 Ratio 11/01/2023 8:08 AM EDT [facility] Comment:PF ratio calculated using the non-temperature corrected pO2 result. IONIZED CALCIUM, ARTERIAL 1.09(L) 1.15 - 1.33 mmol/L 11/01/2023 8:08 AM EDT [facility] Glucose, Arterial 208(H) 65 - 199 mg/dL 11/01/2023 8:08 AM EDT [facility] Comment:Glucose Concentratio n >=200 mg/dL plus symptoms is consistent with Diabetes Mellitus. Blood ARTERIAL BLOOD / Unknown 11/01/2023 8:06 AM EDT 11/01/2023 8:08 AM EDT Timi Person MD POINT OF CARE TEST ORDERABLES [facility] [place] [address] * Beta Hydroxybutyrate (11/01/2023 8:03 AM EDT) Beta-hydroxybu tyrate <0.10 0.00 - 0.30 mMol/L 11/01/2023 9:21 AM EDT [facility] Blood VENOUS BLOOD SPECIMEN / Unknown IP Care Team Draw / Unknown 11/01/2023 8:03 AM EDT 11/01/2023 8:13 AM EDT Narrative [facility] - 11/01/2023 9:21 AM EDT This test has not been cleared by the [place] FDA. Performance characteristics of this test were determined by [facility] in accordance with CLIA requirements. This laboratory is qualified under CLIA to perform high-complexity testing. Timi Person MD CHEMISTRY ORDERABLE S Performing Organization Address City/[facility]/ZIP Co de Phone Number [facility] [place] [address] * Potassium (11/01/2023 8:03 AM EDT) Potassium 4.6 3.5 - 5.0 mMol/L 11/01/2023 8:52 AM EDT [facility] Blood VENOUS BLOOD SPECIMEN / Unknown IP Care Team Draw / Unknown 11/01/2023 8:03 AM EDT 11/01/2023 8:13 AM EDT Timi Person MD CHEMISTRY ORDERABLE S Performing Organization Address [facility]/ZIP Co de Phone Number [facility] [place] [address] * (ABNORMAL) POC, GLUCOSE (11/01/2023 7:02 AM EDT) Glucometer, POC 211(H) 65 - 199 mg/dL 11/01/2023 7:02 AM EDT [facility] Comment:Supplemental ranges: <140 mg/dL before meals <180 mg/dL all other times of the day. Blood CAPILLARY BLOOD / Unknown 11/01/2023 7:02 AM EDT 11/01/2023 7:02 AM EDT Timi Person MD POINT OF CARE TEST ORDERABLES Performing Organization Address [facility]/ZIP Co de Phone Number [facility] [place] [address] * (ABNORMAL) POC, GLUCOSE (11/01/2023 5:59 AM EDT) Glucometer, POC 209(H) 65 - 199 mg/dL 11/01/2023 5:59 AM EDT [facility] Comment:Supplemental ranges: <140 mg/dL before meals <180 mg/dL all other times of the day. Blood CAPILLARY BLOOD / Unknown 11/01/2023 5:59 AM EDT 11/01/2023 5:59 AM EDT Timi Person MD POINT OF CARE TEST ORDERABLES Performing Organization Address [facility] Co de Phone Number [facility] [place] [address] * (ABNORMAL) POC, GLUCOSE (11/01/2023 5:03 AM EDT) Glucometer, POC 263(H) 65 - 199 mg/dL 11/01/2023 5:03 AM EDT [facility] Comment:Supplemental ranges: <140 mg/dL before meals <180 mg/dL all other times of the day. Blood CAPILLARY BLOOD / Unknown 11/01/2023 5:03 AM EDT 11/01/2023 5:04 AM EDT Timi Person MD POINT OF CARE TEST ORDERABLES Performing Organization Address [facility] de Phone Number [facility] [place] [address] * (ABNORMAL) Blood Gas, Arterial POC (11/01/2023 4:07 AM EDT) pH, Arterial 7.38 7.35 - 7.45 11/01/2023 4:08 AM EDT [facility] PCO2, Arterial 39 35 - 45 mmHg 11/01/2023 4:08 AM EDT [facility] PO2, Arterial 79(L) 85 - 104 mmHg 11/01/2023 4:08 AM EDT [facility] Bicarbonate, Arterial 22.4 20.0 - 26.0 mmol/L 11/01/2023 4:08 AM EDT [facility] Base Excess, Arterial -2.7 -3.0 - 3.0 mmol/L 11/01/2023 4:08 AM [facility] Hemoglobin, Arterial 9.3(L) 13.7 - 16.5 g/dL 11/01/2023 4:08 AM [facility] Oxyhemoglobin, Arterial 94.3 94.0 - 97.0 % 11/01/2023 4:08 AM [facility] Carboxyhemoglobin , Arterial 0.1 % 11/01/2023 4:08 AM [facility] Comment: Nonsmokers: 0.5-1.5% COHB ?? Smokers: Variable ??but usually less than 10% ?? Toxic: 20-30% COHB ?? Lethal: Greater than 60% COHB Methemoglobin, Arterial 0.3 <=1.5 % 11/01/2023 4:08 AM [facility] Sodium, Arterial 127(L) 135 - 145 mmol/L 11/01/2023 4:08 AM [facility] Potassium, Arterial 4.7 3.5 - 5.0 mmol/L 11/01/2023 4:08 AM [facility] Chloride, Arterial 100 98 - 107 mmol/L 11/01/2023 4:08 AM [facility] Lactate, Arterial 3.4(H) 0.5 - 2.2 mmol/L 11/01/2023 4:08 AM [facility] Fraction of Inspired Oxygen 60 % 11/01/2023 4:08 AM [facility] PF Ratio 132 Ratio 11/01/2023 4:08 AM [facility] Comment:PF ratio calculated using the non-temperature corrected pO2 result. IONIZED CALCIUM, ARTERIAL 1.08(L) 1.15 - 1.33 mmol/L 11/01/2023 4:08 AM [facility] Glucose, Arterial 256(H) 65 - 199 mg/dL 11/01/2023 4:08 AM [facility] Comment:Glucose Concentratio n >=200 mg/dL plus symptoms is consistent with Diabetes Mellitus. Blood ARTERIAL BLOOD / Unknown 11/01/2023 4:07 AM EDT 11/01/2023 4:08 AM EDT Timi Person MD POINT OF CARE TEST ORDERABLES Performing Organization Address [facility]/ZIP Co de Phone Number [facility] [place] [address] * Potassium (11/01/2023 4:05 AM EDT) Potassium 4.9 3.5 - 5.0 mMol/L 11/01/2023 4:34 AM EDT [facility] Blood VENOUS BLOOD SPECIMEN / Unknown IP Care Team Draw / Unknown 11/01/2023 4:05 AM EDT 11/01/2023 4:13 AM EDT Timi Person MD CHEMISTRY ORDERABLE S Performing Organization Address [facility] Co de Phone Number [facility] [place] [address] * (ABNORMAL) POC, GLUCOSE (11/01/2023 2:59 AM EDT) Glucometer, POC 218(H) 65 - 199 mg/dL 11/01/2023 2:59 AM EDT [facility] Comment:Supplemental ranges: <140 mg/dL before meals <180 mg/dL all other times of the day. Blood CAPILLARY BLOOD / Unknown 11/01/2023 2:59 AM EDT 11/01/2023 2:59 AM EDT Timi Person MD POINT OF CARE TEST ORDERABLES Performing Organization Address City/[facility]/ZIP Co de Phone Number [facility] [place] [address] * (ABNORMAL) CBC (with Diff) (11/01/2023 2:36 AM EDT) White Blood Cell 17.75(H) 4.00 - 9.50 x10(3)/mc L 11/01/2023 3:13 AM [facility] Red Blood Cell 4.30(L) 4.58 - 5.54 x10(6)/mc L 11/01/2023 3:13 AM [facility] Hemoglobin 8.7(L) 13.7 - 16.5 g/dL 11/01/2023 3:13 AM [facility] Hematocrit 28.8(L) 40.5 - 48.5 % 11/01/2023 3:13 AM [facility] Mean Cell Volume 67.0(L) 82.9 - 93.1 fL 11/01/2023 3:13 AM [facility] Mean Cell Hemoglobin 20.2(L) 27.5 - 32.1 pg 11/01/2023 3:13 AM [facility] Mean Cell Hemoglobin Concentration 30.2(L) 32.0 - 35.7 g/dL 11/01/2023 3:13 AM [facility] Platelet 203 145 - 357 x10(3)/mc L 11/01/2023 3:13 AM [facility] Mean Platelet Volume 9.9 7.6 - 12.9 fL 11/01/2023 3:13 AM [facility] RDW Standard Deviation 43.9 36.0 - 45.0 fL 11/01/2023 3:13 AM [facility] RDW coefficient of variation 18.6(H) 11.4 - 13.8 % 11/01/2023 3:13 AM [facility] NRBC% auto 0.0 % 11/01/2023 3:13 AM [facility] NRBC Absolute 0.00 0.00 - 0.00 x10(3)/mc L 11/01/2023 3:13 AM [facility] Neutrophil % 80.9 % 11/01/2023 3:13 AM [facility] Neutrophil Absolute (ANC) - Automated 14.35(H) 1.70 - 6.10 x10(3)/mc L 11/01/2023 3:13 AM EDT [facility] Lymph % 9.1 % 11/01/2023 3:13 AM EDT [facility] Lymph Absolute 1.62 0.90 - 3.20 x10(3)/mc L 11/01/2023 3:13 AM EDT [facility] Monocyte % 8.8 % 11/01/2023 3:13 AM EDT [facility] Monocyte Absolute 1.57(H) 0.30 - 0.90 x10(3)/mc L 11/01/2023 3:13 AM EDT [facility] Eos % 0.3 % 11/01/2023 3:13 AM EDT [facility] Eos Absolute 0.05 0.00 - 0.40 x10(3)/mc L 11/01/2023 3:13 AM EDT [facility] Basophil % 0.4 % 11/01/2023 3:13 AM EDT [facility] Baso Absolute 0.07 0.00 - 0.10 x10(3)/mc L 11/01/2023 3:13 AM EDT [facility] Immature Gran % 0.5 % 3:13 AM EDT [facility] Immature Gran Absolute 0.09(H) 0.00 - 0.04 x10(3)/mc L 11/01/2023 3:13 AM EDT [facility] Blood VENOUS BLOOD SPECIMEN / Unknown IP Care Team Draw / Unknown 11/01/2023 2:36 AM EDT 11/01/2023 2:41 AM EDT Timi Person MD HEMATOLOGY ORDERABL ES [facility] [place] [address] * (ABNORMAL) Basic Metabolic Panel (11/01/2023 2:36 AM EDT) Glucose 254(H) 65 - 199 mg/dL 11/01/2023 3:07 AM [facility] Comment:Glucose Concentratio n >=200 mg/dL plus symptoms is consistent with Diabetes Mellitus. Blood Urea Nitrogen 43(H) 10 - 20 mg/dL 11/01/2023 3:07 AM [facility] Creatinine 4.42(H) 0.80 - 1.50 mg/dL 11/01/2023 3:07 AM [facility] Sodium 135 135 - 145 mMol/L 11/01/2023 3:07 AM [facility] Potassium 4.9 3.5 - 5.0 mMol/L 11/01/2023 3:07 AM [facility] Chloride 101 98 - 107 mMol/L 11/01/2023 3:07 AM [facility] Carbon Dioxide 19(L) 22 - 31 mMol/L 11/01/2023 3:07 AM [facility] Anion Gap 15 5 - 15 mMol/L 11/01/2023 3:07 AM [facility] Calcium 7.9(L) 8.5 - 10.5 mg/dL 11/01/2023 3:07 AM [facility] Est Glomerular Filtration Rate - Male 16 mL/min/1. 73 m?? 11/01/2023 3:07 AM [facility] Comment: This patient's estimated GFR [...] IP Care Team Draw / Unknown 11/01/2023 2:36 AM EDT 11/01/2023 2:41 AM EDT Timi Person MD CHEMISTRY ORDERABLE S Performing Organization Address [facility] Co de Phone Number [facility] [place] [address] * (ABNORMAL) POC, GLUCOSE (11/01/2023 2:01 AM EDT) Glucometer, POC 245(H) 65 - 199 mg/dL 11/01/2023 2:02 AM EDT [facility] Comment:Supplemental ranges: <140 mg/dL before meals <180 mg/dL all other times of the day. Blood CAPILLARY BLOOD / Unknown 11/01/2023 2:01 AM EDT 11/01/2023 2:02 AM EDT Timi Person MD POINT OF CARE TEST ORDERABLES Performing Organization Address [facility] Co de Phone Number [facility] [place] [address] * (ABNORMAL) POC, GLUCOSE (11/01/2023 1:38 AM EDT) Glucometer, POC 235(H) 65 - 199 mg/dL 11/01/2023 1:38 AM EDT [facility] Comment:Supplemental ranges: <140 mg/dL before meals <180 mg/dL all other times of the day. Blood CAPILLARY BLOOD / Unknown 11/01/2023 1:38 AM EDT 11/01/2023 1:39 AM EDT Timi Person MD POINT OF CARE TEST ORDERABLES Performing Organization Address City/[facility]/ZIP Co de Phone Number [facility] [place] [address] * (ABNORMAL) POC, GLUCOSE (11/01/2023 1:03 AM EDT) Glucometer, POC 270(H) 65 - 199 mg/dL 11/01/2023 1:03 AM EDT [facility] Comment:Supplemental ranges: <140 mg/dL before meals <180 mg/dL all other times of the day. Blood CAPILLARY BLOOD / Unknown 11/01/2023 1:03 AM EDT 11/01/2023 1:03 AM EDT Timi Person MD POINT OF CARE TEST ORDERABLES Performing Organization Address City/[facility]/ZIP Co de Phone Number [facility] [place] [address] * (ABNORMAL) POC, GLUCOSE (10/31/2023 11:51 PM EDT) Glucometer, POC 212(H) 65 - 199 mg/dL 10/31/2023 11:51 PM EDT [facility] Comment:Supplemental ranges: <140 mg/dL before meals <180 mg/dL all other times of the day. Blood CAPILLARY BLOOD / Unknown 10/31/2023 11:51 PM EDT 10/31/2023 11:52 PM EDT Timi Person MD POINT OF CARE TEST ORDERABLES Performing Organization Address [facility]/ZIP Co de Phone Number [facility] [place] [address] * (ABNORMAL) Potassium (10/31/2023 11:50 PM EDT) Potassium 5.7(H) 3.5 - 5.0 mMol/L 11/01/2023 12:30 AM EDT [facility] Blood VENOUS BLOOD SPECIMEN / Unknown IP Care Team Draw / Unknown 10/31/2023 11:50 PM EDT 11/01/2023 12:02 AM EDT Timi Person MD CHEMISTRY ORDERABLE S Performing Organization Address City/[facility]/ZIP Co de Phone Number [facility] [place] [address] * (ABNORMAL) Blood Gas, Arterial POC (10/31/2023 11:36 PM EDT) pH, Arterial 7.39 7.35 - 7.45 10/31/2023 11:39 PM [facility] PCO2, Arterial 35 35 - 45 mmHg 10/31/2023 11:39 PM [facility] PO2, Arterial 72(L) 85 - 104 mmHg 10/31/2023 11:39 PM [facility] Bicarbonate, Arterial 20.8 20.0 - 26.0 mmol/L 10/31/2023 11:39 PM [facility] Base Excess, Arterial -4.1(L) -3.0 - 3.0 mmol/L 10/31/2023 11:39 PM [facility] Hemoglobin, Arterial 9.4(L) 13.7 - 16.5 g/dL 10/31/2023 11:39 PM [facility] Oxyhemoglobin, Arterial 93.3(L) 94.0 - 97.0 % 10/31/2023 11:39 PM [facility] Carboxyhemoglobin , Arterial 0.3 % 10/31/2023 11:39 PM [facility] Comment: Nonsmokers: 0.5-1.5% COHB ?? Smokers: Variable ??but usually less than 10% ?? Toxic: 20-30% COHB ?? Lethal: Greater than 60% COHB Methemoglobin, Arterial 0.3 <=1.5 % 10/31/2023 11:39 PM [facility] Sodium, Arterial 126(L) 135 - 145 mmol/L 10/31/2023 11:39 PM [facility] Potassium, Arterial 5.4(H) 3.5 - 5.0 mmol/L 10/31/2023 11:39 PM [facility] Chloride, Arterial 103 98 - 107 mmol/L 10/31/2023 11:39 PM [facility] Lactate, Arterial 2.5(H) 0.5 - 2.2 mmol/L 10/31/2023 11:39 PM EDT [facility] Fraction of Inspired Oxygen 60 % 10/31/2023 11:39 PM EDT [facility] PF Ratio 120 Ratio 10/31/2023 11:39 PM EDT [facility] Comment:PF ratio calculated using the non-temperature corrected pO2 result. IONIZED CALCIUM, ARTERIAL 1.05(L) 1.15 - 1.33 mmol/L 10/31/2023 11:39 PM EDT [facility] Glucose, Arterial 200(H) 65 - 199 mg/dL 10/31/2023 11:39 PM EDT [facility] Comment:Glucose Concentratio n >=200 mg/dL plus symptoms is consistent with Diabetes Mellitus. Blood ARTERIAL BLOOD / Unknown 10/31/2023 11:36 PM EDT 10/31/2023 11:39 PM EDT Timi Person MD POINT OF CARE TEST ORDERABLES [facility] [place] [address] * POC, GLUCOSE (10/31/2023 11:00 PM EDT) Glucometer, POC 169 65 - 199 mg/dL 10/31/2023 11:00 PM EDT [facility] Comment:Supplemental ranges: <140 mg/dL before meals <180 mg/dL all other times of the day. Blood CAPILLARY BLOOD / Unknown 10/31/2023 11:00 PM EDT 10/31/2023 11:01 PM EDT Timi Person MD POINT OF CARE TEST ORDERABLES [facility] [place] [address] * POC, GLUCOSE (10/31/2023 10:04 PM EDT) Glucometer, POC 163 65 - 199 mg/dL 10/31/2023 10:04 PM EDT [facility] Comment:Supplemental ranges: <140 mg/dL before meals <180 mg/dL all other times of the day. Blood CAPILLARY BLOOD / Unknown 10/31/2023 10:04 PM EDT 10/31/2023 10:04 PM EDT Timi Person MD POINT OF CARE TEST ORDERABLES Performing Organization Address City/[facility] Co de Phone Number [facility] [place] [address] * POC, GLUCOSE (10/31/2023 9:11 PM EDT) Glucometer, POC 168 65 - 199 mg/dL 10/31/2023 9:12 PM EDT [facility] Comment:Supplemental ranges: <140 mg/dL before meals <180 mg/dL all other times of the day. Blood CAPILLARY BLOOD / Unknown 10/31/2023 9:11 PM EDT 10/31/2023 9:12 PM EDT Timi Person MD POINT OF CARE TEST ORDERABLES Performing Organization Address [facility] Co de Phone Number [facility] [place] [address] * (ABNORMAL) Blood Gas, Arterial POC (10/31/2023 7:58 PM EDT) pH, Arterial 7.39 7.35 - 7.45 10/31/2023 7:59 PM EDT [facility] PCO2, Arterial 37 35 - 45 mmHg 10/31/2023 7:59 PM EDT [facility] PO2, Arterial 68(L) 85 - 104 mmHg 10/31/2023 7:59 PM EDT [facility] Bicarbonate, Arterial 21.7 20.0 - 26.0 mmol/L 10/31/2023 7:59 PM EDT [facility] Base Excess, Arterial -3.3(L) -3.0 - 3.0 mmol/L 10/31/2023 7:59 PM [facility] Hemoglobin, Arterial 9.8(L) 13.7 - 16.5 g/dL 10/31/2023 7:59 PM [facility] Oxyhemoglobin, Arterial 92.5(L) 94.0 - 97.0 % 10/31/2023 7:59 PM [facility] Carboxyhemoglobin , Arterial 0.1 % 10/31/2023 7:59 PM [facility] Comment: Nonsmokers: 0.5-1.5% COHB ?? Smokers: Variable ??but usually less than 10% ?? Toxic: 20-30% COHB ?? Lethal: Greater than 60% COHB Methemoglobin, Arterial 0.3 <=1.5 % 10/31/2023 7:59 PM [facility] Sodium, Arterial 131(L) 135 - 145 mmol/L 10/31/2023 7:59 PM [facility] Potassium, Arterial 5.2(H) 3.5 - 5.0 mmol/L 10/31/2023 7:59 PM [facility] Chloride, Arterial 102 98 - 107 mmol/L 10/31/2023 7:59 PM [facility] Lactate, Arterial 2.3(H) 0.5 - 2.2 mmol/L 10/31/2023 7:59 PM [facility] Fraction of Inspired Oxygen 60 % 10/31/2023 7:59 PM [facility] PF Ratio 113 Ratio 10/31/2023 7:59 PM [facility] Comment:PF ratio calculated using the non-temperature corrected pO2 result. IONIZED CALCIUM, ARTERIAL 1.11(L) 1.15 - 1.33 mmol/L 10/31/2023 7:59 PM [facility] Glucose, Arterial 161 65 - 199 mg/dL 10/31/2023 7:59 PM [facility] Comment:Glucose Concentratio n >=200 mg/dL plus symptoms is consistent with Diabetes Mellitus. Blood ARTERIAL BLOOD / Unknown 10/31/2023 7:58 PM EDT 10/31/2023 7:59 PM EDT Timi Person MD POINT OF CARE TEST ORDERABLES Performing Organization Address City/[facility]/ZIP Co de Phone Number [facility] [place] [address] * (ABNORMAL) Potassium (10/31/2023 7:58 PM EDT) Potassium 5.3(H) 3.5 - 5.0 mMol/L 10/31/2023 8:36 PM EDT [facility] Blood VENOUS BLOOD SPECIMEN / Unknown IP Care Team Draw / Unknown 10/31/2023 7:58 PM EDT 10/31/2023 8:05 PM EDT Timi Person MD CHEMISTRY ORDERABLE S Performing Organization Address [facility] Co de Phone Number [facility] [place] [address] * POC, GLUCOSE (10/31/2023 6:55 PM EDT) Glucometer, POC 138 65 - 199 mg/dL 10/31/2023 6:55 PM EDT [facility] Comment:Supplemental ranges: <140 mg/dL before meals <180 mg/dL all other times of the day. Blood CAPILLARY BLOOD / Unknown 10/31/2023 6:55 PM EDT 10/31/2023 6:55 PM EDT Timi Person MD POINT OF CARE TEST ORDERABLES Performing Organization Address [facility]/ZIP Co de Phone Number [facility] [place] [address] * POC, GLUCOSE (10/31/2023 6:05 PM EDT) Glucometer, POC 129 65 - 199 mg/dL 10/31/2023 6:06 PM EDT [facility] Comment:Supplemental ranges: <140 mg/dL before meals <180 mg/dL all other times of the day. Blood CAPILLARY BLOOD / Unknown 10/31/2023 6:05 PM EDT 10/31/2023 6:06 PM EDT Timi Person MD POINT OF CARE TEST ORDERABLES Performing Organization Address City/[facility] Co de Phone Number [facility] [place] [address] * POC, GLUCOSE (10/31/2023 5:10 PM EDT) Glucometer, POC 115 65 - 199 mg/dL 10/31/2023 5:10 PM EDT [facility] Comment:Supplemental ranges: <140 mg/dL before meals <180 mg/dL all other times of the day. Blood CAPILLARY BLOOD / Unknown 10/31/2023 5:10 PM EDT 10/31/2023 5:10 PM EDT Timi Person MD POINT OF CARE TEST ORDERABLES Performing Organization Address City/[facility] Co de Phone Number [facility] [place] [address] * (ABNORMAL) Blood Gas, Arterial POC (10/31/2023 3:57 PM EDT) pH, Arterial 7.40 7.35 - 7.45 10/31/2023 3:58 PM EDT [facility] PCO2, Arterial 37 35 - 45 mmHg 10/31/2023 3:58 PM EDT [facility] PO2, Arterial 73(L) 85 - 104 mmHg 10/31/2023 3:58 PM EDT [facility] Bicarbonate, Arterial 22.5 20.0 - 26.0 mmol/L 10/31/2023 3:58 PM EDT [facility] Base Excess, Arterial -2.3 -3.0 - 3.0 mmol/L 10/31/2023 3:58 PM [facility] Hemoglobin, Arterial 9.9(L) 13.7 - 16.5 g/dL 10/31/2023 3:58 PM [facility] Oxyhemoglobin, Arterial 93.8(L) 94.0 - 97.0 % 10/31/2023 3:58 PM [facility] Carboxyhemoglobin , Arterial 0.3 % 10/31/2023 3:58 PM [facility] Comment: Nonsmokers: 0.5-1.5% COHB ?? Smokers: Variable ??but usually less than 10% ?? Toxic: 20-30% COHB ?? Lethal: Greater than 60% COHB Methemoglobin, Arterial 0.3 <=1.5 % 10/31/2023 3:58 PM [facility] Sodium, Arterial 132(L) 135 - 145 mmol/L 10/31/2023 3:58 PM [facility] Potassium, Arterial 4.8 3.5 - 5.0 mmol/L 10/31/2023 3:58 PM [facility] Chloride, Arterial 104 98 - 107 mmol/L 10/31/2023 3:58 PM [facility] Lactate, Arterial 2.1 0.5 - 2.2 mmol/L 10/31/2023 3:58 PM [facility] Fraction of Inspired Oxygen 60 % 10/31/2023 3:58 PM [facility] PF Ratio 122 Ratio 10/31/2023 3:58 PM [facility] Comment:PF ratio calculated using the non-temperature corrected pO2 result. IONIZED CALCIUM, ARTERIAL 1.11(L) 1.15 - 1.33 mmol/L 10/31/2023 3:58 PM [facility] Glucose, Arterial 134 65 - 199 mg/dL 10/31/2023 3:58 PM [facility] Comment:Glucose Concentratio n >=200 mg/dL plus symptoms is consistent with Diabetes Mellitus. Blood ARTERIAL BLOOD / Unknown 10/31/2023 3:57 PM EDT 10/31/2023 3:58 PM EDT Timi Person MD POINT OF CARE TEST ORDERABLES [facility] [place] [address] * Potassium (10/31/2023 3:50 PM EDT) Potassium 4.8 3.5 - 5.0 mMol/L 10/31/2023 4:54 PM EDT [facility] Blood VENOUS BLOOD SPECIMEN / Unknown IP Care Team Draw / Unknown 10/31/2023 3:50 PM EDT 10/31/2023 4:03 PM EDT Timi Person MD CHEMISTRY ORDERABLE S Performing Organization Address City/[facility]/ZIP Co de Phone Number [facility] [place] [address] * POC, GLUCOSE (10/31/2023 3:10 PM EDT) Glucometer, POC 156 65 - 199 mg/dL 10/31/2023 3:11 PM EDT [facility] Comment:Supplemental ranges: <140 mg/dL before meals <180 mg/dL all other times of the day. Blood CAPILLARY BLOOD / Unknown 10/31/2023 3:10 PM EDT 10/31/2023 3:11 PM EDT Timi Person MD POINT OF CARE TEST ORDERABLES [facility] [place] [address] * POC, GLUCOSE (10/31/2023 2:26 PM EDT) Glucometer, POC 154 65 - 199 mg/dL 10/31/2023 2:26 PM EDT [facility] Comment:Supplemental ranges: <140 mg/dL before meals <180 mg/dL all other times of the day. Blood CAPILLARY BLOOD / Unknown 10/31/2023 2:26 PM EDT 10/31/2023 2:26 PM EDT Timi Person MD POINT OF CARE TEST ORDERABLES Performing Organization Address City/[facility] Co de Phone Number [facility] [place] [address] * POC, GLUCOSE (10/31/2023 1:14 PM EDT) Glucometer, POC 149 65 - 199 mg/dL 10/31/2023 1:16 PM EDT [facility] Comment:Supplemental ranges: <140 mg/dL before meals <180 mg/dL all other times of the day. Blood CAPILLARY BLOOD / Unknown 10/31/2023 1:14 PM EDT 10/31/2023 1:16 PM EDT Timi Person MD POINT OF CARE TEST ORDERABLES Performing Organization Address City/[facility] Co de Phone Number [facility] [place] [address] * (ABNORMAL) Blood Gas, Arterial POC (10/31/2023 11:52 AM EDT) pH, Arterial 7.36 7.35 - 7.45 10/31/2023 11:54 AM EDT [facility] PCO2, Arterial 36 35 - 45 mmHg 10/31/2023 11:54 AM EDT [facility] PO2, Arterial 71(L) 85 - 104 mmHg 10/31/2023 11:54 AM EDT [facility] Bicarbonate, Arterial 20.0 20.0 - 26.0 mmol/L 10/31/2023 11:54 AM EDT [facility] Base Excess, Arterial -5.4(L) -3.0 - 3.0 mmol/L 10/31/2023 11:54 AM EDT [facility] Hemoglobin, Arterial 10.4(L) 13.7 - 16.5 g/dL 10/31/2023 11:54 AM [facility] Oxyhemoglobin, Arterial 93.3(L) 94.0 - 97.0 % 10/31/2023 11:54 AM [facility] Carboxyhemoglobin , Arterial 0.0 % 10/31/2023 11:54 AM [facility] Comment: Nonsmokers: 0.5-1.5% COHB ?? Smokers: Variable ??but usually less than 10% ?? Toxic: 20-30% COHB ?? Lethal: Greater than 60% COHB Methemoglobin, Arterial 0.3 <=1.5 % 10/31/2023 11:54 AM [facility] Sodium, Arterial 131(L) 135 - 145 mmol/L 10/31/2023 11:54 AM [facility] Potassium, Arterial 5.0 3.5 - 5.0 mmol/L 10/31/2023 11:54 AM [facility] Chloride, Arterial 103 98 - 107 mmol/L 10/31/2023 11:54 AM [facility] Lactate, Arterial 2.0 0.5 - 2.2 mmol/L 10/31/2023 11:54 AM [facility] Fraction of Inspired Oxygen 60 % 10/31/2023 11:54 AM [facility] PF Ratio 118 Ratio 10/31/2023 11:54 AM [facility] Comment:PF ratio calculated using the non-temperature corrected pO2 result. IONIZED CALCIUM, ARTERIAL 1.12(L) 1.15 - 1.33 mmol/L 10/31/2023 11:54 AM [facility] Glucose, Arterial 158 65 - 199 mg/dL 10/31/2023 11:54 AM [facility] Comment:Glucose Concentratio n >=200 mg/dL plus symptoms is consistent with Diabetes Mellitus. Blood ARTERIAL BLOOD / Unknown 10/31/2023 11:52 AM EDT 10/31/2023 11:53 AM EDT Timi Person MD POINT OF CARE TEST ORDERABLES [facility] [place] [address] * (ABNORMAL) Comprehensive metabolic panel (10/31/2023 11:48 AM EDT) Glucose 166 65 - 199 mg/dL 10/31/2023 12:44 PM EDT [facility] Comment:Glucose Concentratio n >=200 mg/dL plus symptoms is consistent with Diabetes Mellitus. Blood Urea Nitrogen 43(H) 10 - 20 mg/dL 10/31/2023 12:44 PM EDT [facility] Creatinine 4.00(H) 0.80 - 1.50 mg/dL 10/31/2023 12:44 PM EDT [facility] Sodium 135 135 - 145 mMol/L 10/31/2023 12:44 PM EDT [facility] Potassium 5.3(H) 3.5 - 5.0 mMol/L 10/31/2023 12:44 PM EDT [facility] Chloride 103 98 - 107 mMol/L 10/31/2023 12:44 PM EDT [facility] Carbon Dioxide 20(L) 22 - 31 mMol/L 10/31/2023 12:44 PM EDT [facility] Anion Gap 12 5 - 15 mMol/L 10/31/2023 12:44 PM EDT [facility] Calcium 8.1(L) 8.5 - 10.5 mg/dL 10/31/2023 12:44 PM EDT [facility] Protein, Total 5.3(L) 6.1 - 8.0 g/dL 10/31/2023 12:44 PM EDT [facility] Albumin 2.9(L) 3.2 - 5.2 g/dL 10/31/2023 12:44 PM EDT [facility] Aspartate Aminotransferase 24 <=39 unit/L 10/31/2023 12:44 PM EDT [facility] Alanine Aminotransferase 14 0 - 55 unit/L 10/31/2023 12:44 PM EDT [facility] Alkaline Phosphatase 58 40 - 130 unit/L 10/31/2023 12:44 PM EDT [facility] Bilirubin, Total 0.3 <=1.3 mg/dL 10/31/2023 12:44 PM EDT [facility] Est Glomerular Filtration Rate - Male 18 mL/min/1. 73 m?? 10/31/2023 12:44 PM EDT [facility] Comment: This patient's estimated GFR [...] PM EDT Janie Smith MD CHEMISTRY ORDERABLES [facility] [place] [address] * POC, GLUCOSE (10/31/2023 10:15 AM EDT) Glucometer, POC 177 65 - 199 mg/dL 10/31/2023 10:15 AM EDT [facility] Comment:Supplemental ranges: <140 mg/dL before meals <180 mg/dL all other times of the day. Blood CAPILLARY BLOOD / Unknown 10/31/2023 10:15 AM EDT 10/31/2023 10:16 AM EDT Timi Person MD POINT OF CARE TEST ORDERABLES [facility] [place] [address] * (ABNORMAL) Blood Gas, Arterial POC (10/31/2023 9:04 AM EDT) pH, Arterial 7.30(L) 7.35 - 7.45 10/31/2023 9:05 AM EDT [facility] PCO2, Arterial 48(H) 35 - 45 mmHg 10/31/2023 9:05 AM EDT [facility] PO2, Arterial 79(L) 85 - 104 mmHg 10/31/2023 9:05 AM EDT [facility] Bicarbonate, Arterial 23.0 20.0 - 26.0 mmol/L 10/31/2023 9:05 AM EDT [facility] Base Excess, Arterial -3.4(L) -3.0 - 3.0 mmol/L 10/31/2023 9:05 AM EDT [facility] Hemoglobin, Arterial 10.9(L) 13.7 - 16.5 g/dL 10/31/2023 9:05 AM EDT [facility] Oxyhemoglobin, Arterial 94.0 94.0 - 97.0 % 10/31/2023 9:05 AM EDT [facility] Carboxyhemoglobin , Arterial 0.5 % 10/31/2023 9:05 AM EDT [facility] Comment: Nonsmokers: 0.5-1.5% COHB ?? Smokers: Variable ??but usually less than 10% ?? Toxic: 20-30% COHB ?? Lethal: Greater than 60% COHB Methemoglobin, Arterial 0.3 <=1.5 % 10/31/2023 9:05 AM EDT [facility] Sodium, Arterial 132(L) 135 - 145 mmol/L 10/31/2023 9:05 AM EDT [facility] Potassium, Arterial 5.6(H) 3.5 - 5.0 mmol/L 10/31/2023 9:05 AM EDT [facility] Chloride, Arterial 103 98 - 107 mmol/L 10/31/2023 9:05 AM EDT [facility] Lactate, Arterial 2.1 0.5 - 2.2 mmol/L 10/31/2023 9:05 AM EDT [facility] Fraction of Inspired Oxygen 60 % 10/31/2023 9:05 AM EDT [facility] PF Ratio 132 Ratio 10/31/2023 9:05 AM EDT [facility] Comment:PF ratio calculated using the non-temperature corrected pO2 result. IONIZED CALCIUM, ARTERIAL 1.15 1.15 - 1.33 mmol/L 10/31/2023 9:05 AM EDT [facility] Glucose, Arterial 197 65 - 199 mg/dL 10/31/2023 9:05 AM EDT [facility] Comment:Glucose Concentratio n >=200 mg/dL plus symptoms is consistent with Diabetes Mellitus. Blood ARTERIAL BLOOD / Unknown 10/31/2023 9:04 AM EDT 10/31/2023 9:05 AM EDT Timi Person MD POINT OF CARE TEST ORDERABLES [facility] [place] [address] * (ABNORMAL) Potassium (10/31/2023 8:53 AM EDT) Potassium 5.7(H) 3.5 - 5.0 mMol/L 10/31/2023 9:50 AM EDT [facility] Blood VENOUS BLOOD SPECIMEN / Unknown IP Care Team Draw / Unknown 10/31/2023 8:53 AM EDT 10/31/2023 9:08 AM EDT Timi Person MD CHEMISTRY ORDERABLE S [facility] [place] [address] * POC, GLUCOSE (10/31/2023 7:54 AM EDT) Glucometer, POC 196 65 - 199 mg/dL 10/31/2023 7:55 AM EDT [facility] Comment:Supplemental ranges: <140 mg/dL before meals <180 mg/dL all other times of the day. Blood CAPILLARY BLOOD / Unknown 10/31/2023 7:54 AM EDT 10/31/2023 7:55 AM EDT Timi Person MD POINT OF CARE TEST ORDERABLES [facility] [place] [address] * (ABNORMAL) POC, GLUCOSE (10/31/2023 6:53 AM EDT) Glucometer, POC 208(H) 65 - 199 mg/dL 10/31/2023 6:54 AM EDT [facility] Comment:Supplemental ranges: <140 mg/dL before meals <180 mg/dL all other times of the day. Blood CAPILLARY BLOOD / Unknown 10/31/2023 6:53 AM EDT 10/31/2023 6:54 AM EDT Timi Person MD POINT OF CARE TEST ORDERABLES [facility] [place] [address] * (ABNORMAL) Blood Gas, Arterial POC (10/31/2023 5:56 AM EDT) pH, Arterial 7.31(L) 7.35 - 7.45 10/31/2023 5:57 AM EDT [facility] PCO2, Arterial 44 35 - 45 mmHg 10/31/2023 5:57 AM EDT [facility] PO2, Arterial 76(L) 85 - 104 mmHg 10/31/2023 5:57 AM EDT [facility] Bicarbonate, Arterial 21.8 20.0 - 26.0 mmol/L 10/31/2023 5:57 AM [facility] Base Excess, Arterial -4.5(L) -3.0 - 3.0 mmol/L 10/31/2023 5:57 AM [facility] Hemoglobin, Arterial 10.8(L) 13.7 - 16.5 g/dL 10/31/2023 5:57 AM [facility] Oxyhemoglobin, Arterial 93.2(L) 94.0 - 97.0 % 10/31/2023 5:57 AM [facility] Carboxyhemoglobin , Arterial 0.6 % 10/31/2023 5:57 AM [facility] Comment: Nonsmokers: 0.5-1.5% COHB ?? Smokers: Variable ??but usually less than 10% ?? Toxic: 20-30% COHB ?? Lethal: Greater than 60% COHB Methemoglobin, Arterial 0.3 <=1.5 % 10/31/2023 5:57 AM [facility] Sodium, Arterial 132(L) 135 - 145 mmol/L 10/31/2023 5:57 AM [facility] Potassium, Arterial 4.9 3.5 - 5.0 mmol/L 10/31/2023 5:57 AM [facility] Chloride, Arterial 103 98 - 107 mmol/L 10/31/2023 5:57 AM [facility] Lactate, Arterial 2.0 0.5 - 2.2 mmol/L 10/31/2023 5:57 AM [facility] Fraction of Inspired Oxygen 60 % 10/31/2023 5:57 AM [facility] PF Ratio 127 Ratio 10/31/2023 5:57 AM [facility] Comment:PF ratio calculated using the non-temperature corrected pO2 result. IONIZED CALCIUM, ARTERIAL 1.15 1.15 - 1.33 mmol/L 10/31/2023 5:57 AM [facility] Glucose, Arterial 220(H) 65 - 199 mg/dL 10/31/2023 5:57 AM EDT [facility] Comment:Glucose Concentratio n >=200 mg/dL plus symptoms is consistent with Diabetes Mellitus. Blood ARTERIAL BLOOD / Unknown 10/31/2023 5:56 AM EDT 10/31/2023 5:57 AM EDT Timi Person MD POINT OF CARE TEST ORDERABLES Performing Organization Address [facility] Co de Phone Number [facility] [place] [address] * (ABNORMAL) POC, GLUCOSE (10/31/2023 4:59 AM EDT) Glucometer, POC 273(H) 65 - 199 mg/dL 10/31/2023 4:59 AM EDT [facility] Comment:Supplemental ranges: <140 mg/dL before meals <180 mg/dL all other times of the day. Blood CAPILLARY BLOOD / Unknown 10/31/2023 4:59 AM EDT 10/31/2023 4:59 AM EDT Timi Person MD POINT OF CARE TEST ORDERABLES Performing Organization Address [facility] de Phone Number [facility] [place] [address] * (ABNORMAL) POC, GLUCOSE (10/31/2023 3:57 AM EDT) Glucometer, POC 303(H) 65 - 199 mg/dL 10/31/2023 3:57 AM EDT [facility] Comment:Supplemental ranges: <140 mg/dL before meals <180 mg/dL all other times of the day. Blood CAPILLARY BLOOD / Unknown 10/31/2023 3:57 AM EDT 10/31/2023 3:57 AM EDT Timi Person MD POINT OF CARE TEST ORDERABLES Performing Organization Address City/[facility]/ZIP Co de Phone Number [facility] [place] [address] * (ABNORMAL) Cooximetry, POC (10/31/2023 3:01 AM EDT) pO2, Coox 29 mmHg 10/31/2023 3:03 AM EDT [facility] Hemoglobin, Coox 10.9(L) 13.7 - 16.5 g/dL 10/31/2023 3:03 AM EDT [facility] Oxyhemoglobin, Coox 53.4 % 10/31/2023 3:03 AM EDT [facility] Carboxyhemoglo bin, Coox 0.9 % 10/31/2023 3:03 AM EDT [facility] Comment: Nonsmokers: 0.5-1.5% COHB ?? Smokers: Variable ??but usually less than 10% ?? Toxic: 20-30% COHB ?? Lethal: Greater than 60% COHB Methemoglobin, Coox 0.3 <=1.5 % 10/31/2023 3:03 AM EDT [facility] Blood (Mixed Venous) 10/31/2023 3:01 AM EDT 10/31/2023 3:03 AM EDT Timi Person MD POINT OF CARE TEST ORDERABLES [facility] [place] [address] * (ABNORMAL) Blood Gas, Arterial POC (10/31/2023 2:57 AM EDT) pH, Arterial 7.28(LLL) 7.35 - 7.45 10/31/2023 2:58 AM EDT [facility] PCO2, Arterial 46(H) 35 - 45 mmHg 10/31/2023 2:58 AM EDT [facility] PO2, Arterial 77(L) 85 - 104 mmHg 10/31/2023 2:58 AM EDT [facility] Bicarbonate, Arterial 21.1 20.0 - 26.0 mmol/L 10/31/2023 2:58 AM [facility] Base Excess, Arterial -5.6(L) -3.0 - 3.0 mmol/L 10/31/2023 2:58 AM [facility] Hemoglobin, Arterial 10.8(L) 13.7 - 16.5 g/dL 10/31/2023 2:58 AM [facility] Oxyhemoglobin, Arterial 93.2(L) 94.0 - 97.0 % 10/31/2023 2:58 AM [facility] Carboxyhemoglobin , Arterial 0.3 % 10/31/2023 2:58 AM [facility] Comment: Nonsmokers: 0.5-1.5% COHB ?? Smokers: Variable ??but usually less than 10% ?? Toxic: 20-30% COHB ?? Lethal: Greater than 60% COHB Methemoglobin, Arterial 0.3 <=1.5 % 10/31/2023 2:58 AM [facility] Sodium, Arterial 133(L) 135 - 145 mmol/L 10/31/2023 2:58 AM [facility] Potassium, Arterial 4.7 3.5 - 5.0 mmol/L 10/31/2023 2:58 AM [facility] Chloride, Arterial 103 98 - 107 mmol/L 10/31/2023 2:58 AM [facility] Lactate, Arterial 2.0 0.5 - 2.2 mmol/L 10/31/2023 2:58 AM [facility] Fraction of Inspired Oxygen 60 % 10/31/2023 2:58 AM [facility] PF Ratio 128 Ratio 10/31/2023 2:58 AM [facility] Comment:PF ratio calculated using the non-temperature corrected pO2 result. IONIZED CALCIUM, ARTERIAL 1.18 1.15 - 1.33 mmol/L 10/31/2023 2:58 AM [facility] Glucose, Arterial 270(H) 65 - 199 mg/dL 10/31/2023 2:58 AM EDT [facility] Comment:Glucose Concentratio n >=200 mg/dL plus symptoms is consistent with Diabetes Mellitus. Blood ARTERIAL BLOOD / Unknown 10/31/2023 2:57 AM EDT 10/31/2023 2:58 AM EDT Timi Person MD POINT OF CARE TEST ORDERABLES [facility] [place] [address] * XR Chest One View (10/31/2023 2:43 AM EDT) WORKSTATION ID [id number] RAD Anatomical Region Laterality Modality Chest N/A Digital Radiogra phy Impressions 10/31/2023 3:26 AM EDT 1. ??Support lines and tubes as above. 2. ??Hypoinflated lungs with patchy left base opacity, likely atelectasis and/or small effusion, similar to prior. Thank you for letting us participate in the care of this patient. ??If you are a health care provider and have any questions regarding this report, please contact the number below. ??For patients who have questions please contact the health personal care assistant that requested your imaging first. ? Narrative 10/31/2023 3:26 AM EDT EXAMINATION: XR CHEST ONE VIEW CLINICAL HISTORY: s/p cabg eval lines/ett, lungs TECHNIQUE: 1 view of the chest COMPARISON: Chest x-ray 10/30/2023 FINDINGS: ET tube tip terminates approximately 3 cm above the steve. Enteric tube extends below the diaphragm, tip in the gastric fundus. Right IJ PA catheter tip terminates in the distal most right main pulmonary artery or a interlobar pulmonary artery branch, unchanged. Left chest tube and mediastinal drain. Hypoinflated lungs. Patchy left base opacity, likely atelectasis. Cannot exclude small left basilar pleural effusion. No pneumothorax identified. Unchanged cardiomediastinal silhouette accentuated by low lung volumes. No evidence of pulmonary edema. Intact midline sternal wires. No acute osseous findings. Procedure Note Price Aguilera MD - 10/31/2023 EXAMINATION: XR CHEST ONE VIEW CLINICAL HISTORY: s/p cabg eval lines/ett, lungs TECHNIQUE: 1 view of the chest COMPARISON: Chest x-ray 10/30/2023 FINDINGS: ET tube tip terminates approximately 3 cm above the steve. Enteric tubeextends below the diaphragm, tip in the gastric fundus. Right IJ PA catheter tip terminates in the distal most right main pulmonary artery or ainterlobar pulmonary artery branch, unchanged. Left chest tube and mediastinaldrain. Hypoinflated lungs. Patchy left base opacity, likely atelectasis. Cannotexclude small left basilar pleural effusion. No pneumothorax identified.Unchanged cardiomediastinal silhouette accentuated by low lung volumes. No evidenceof pulmonary edema. Intact midline sternal wires. No acute osseousfindings. IMPRESSION 1. Support lines and tubes as above. 2. Hypoinflated lungs with patchy left base opacity, likely atelectasisand/or small effusion, similar to prior. Thank you for letting us participate in the care of this patient. If youare a health care provider and have any questions regarding this report,please contact the number below. For patients who have questions please contactthe health personal care assistant that requested your imaging first. Timi Person MD IMG DX ORDERABLES * (ABNORMAL) Blood Gas, Arterial POC (10/31/2023 1:38 AM EDT) pH, Arterial 7.30(L) 7.35 - 7.45 10/31/2023 1:39 AM [facility] PCO2, Arterial 44 35 - 45 mmHg 10/31/2023 1:39 AM [facility] PO2, Arterial 65(L) 85 - 104 mmHg 10/31/2023 1:39 AM [facility] Bicarbonate, Arterial 21.1 20.0 - 26.0 mmol/L 10/31/2023 1:39 AM [facility] Base Excess, Arterial -5.3(L) -3.0 - 3.0 mmol/L 10/31/2023 1:39 AM [facility] Hemoglobin, Arterial 11.4(L) 13.7 - 16.5 g/dL 10/31/2023 1:39 AM [facility] Oxyhemoglobin, Arterial 90.9(L) 94.0 - 97.0 % 10/31/2023 1:39 AM [facility] Carboxyhemoglobin , Arterial 0.5 % 10/31/2023 1:39 AM [facility] Comment: Nonsmokers: 0.5-1.5% COHB ?? Smokers: Variable ??but usually less than 10% ?? Toxic: 20-30% COHB ?? Lethal: Greater than 60% COHB Methemoglobin, Arterial 0.3 <=1.5 % 10/31/2023 1:39 AM [facility] Sodium, Arterial 132(L) 135 - 145 mmol/L 10/31/2023 1:39 AM [facility] Potassium, Arterial 4.7 3.5 - 5.0 mmol/L 10/31/2023 1:39 AM [facility] Chloride, Arterial 102 98 - 107 mmol/L 10/31/2023 1:39 AM [facility] Lactate, Arterial 2.2 0.5 - 2.2 mmol/L 10/31/2023 1:39 AM EDT [facility] Fraction of Inspired Oxygen 50 % 10/31/2023 1:39 AM EDT [facility] PF Ratio 130 Ratio 10/31/2023 1:39 AM EDT [facility] Comment:PF ratio calculated using the non-temperature corrected pO2 result. IONIZED CALCIUM, ARTERIAL 1.21 1.15 - 1.33 mmol/L 10/31/2023 1:39 AM EDT [facility] Glucose, Arterial 302(H) 65 - 199 mg/dL 10/31/2023 1:39 AM EDT [facility] Comment:Glucose Concentratio n >=200 mg/dL plus symptoms is consistent with Diabetes Mellitus. Blood ARTERIAL BLOOD / Unknown 10/31/2023 1:38 AM EDT 10/31/2023 1:39 AM EDT Timi Person MD POINT OF CARE TEST ORDERABLES Performing Organization Address City/State/[facility] Co de Phone Number [facility] [place] [address] * (ABNORMAL) Hemoglobin A1c (10/31/2023 1:37 AM EDT) Hemoglobin A1c 9.5(H) 4.3 - 5.6 % 10/31/2023 11:51 AM EDT [facility] Comment: Per ADA guidelines, without [...] red blood cell turnover may not be field service representative of glycemic control. Reference Interval: 4.3 - 5.6% 5.7 - 6.4%: Consistent with prediabetes >=6.5%: Consistent with diagnosis of diabetes mellitus Estimated Average Glucose 226 mg/dL 10/31/2023 11:51 AM EDT [facility] Blood VENOUS BLOOD SPECIMEN / Unknown IP Care Team Draw / Unknown 10/31/2023 1:37 AM EDT 10/31/2023 1:42 AM EDT Timi Person MD CHEMISTRY ORDERABLE S Performing Organization Address City/[facility]/ZIP Co de Phone Number [facility] [place] [address] * Scan, Peripheral Blood (10/31/2023 1:37 AM EDT) RBC Morphology Abnormal 10/31/2023 2:30 AM EDT [facility] Platelet Estimate Normal Normal 024 2:30 AM EDT [facility] Macrocyte 1-5 /HPF 10/31/2023 2:30 AM EDT [facility] Microcyte 6-10 /HPF 10/31/2023 2:30 AM EDT [facility] Polychromasia Present 10/31/2023 2:30 AM EDT [facility] Ovalocytes 1-5 /HPF 10/31/2023 2:30 AM EDT [facility] Marylou cells 1-5 /HPF 10/31/2023 2:30 AM EDT [facility] Blood VENOUS BLOOD SPECIMEN / Unknown IP Care Team Draw / Unknown 10/31/2023 1:37 AM EDT 10/31/2023 1:42 AM EDT Timi Person MD HEMATOLOGY ORDERABL ES Performing Organization Address City/[facility]/ZIP Co de Phone Number [facility] [place] [address] * (ABNORMAL) Basic Metabolic Panel (10/31/2023 1:37 AM EDT) Glucose 298(H) 65 - 199 mg/dL 10/31/2023 2:38 AM EDT [facility] Comment:Glucose Concentratio n >=200 mg/dL plus symptoms is consistent with Diabetes Mellitus. Blood Urea Nitrogen 41(H) 10 - 20 mg/dL 10/31/2023 2:38 AM [facility] Creatinine 3.62(H) 0.80 - 1.50 mg/dL 10/31/2023 2:38 AM [facility] Sodium 135 135 - 145 mMol/L 10/31/2023 2:38 AM [facility] Potassium 4.8 3.5 - 5.0 mMol/L 10/31/2023 2:38 AM [facility] Chloride 102 98 - 107 mMol/L 10/31/2023 2:38 AM [facility] Carbon Dioxide 20(L) 22 - 31 mMol/L 10/31/2023 2:38 AM [facility] Anion Gap 13 5 - 15 mMol/L 10/31/2023 2:38 AM [facility] Calcium 8.4(L) 8.5 - 10.5 mg/dL 10/31/2023 2:38 AM [facility] Est Glomerular Filtration Rate - Male 20 mL/min/1. 73 m?? 10/31/2023 2:38 AM [facility] Comment: This patient's estimated GFR [...] 1:37 AM EDT 10/31/2023 1:42 AM EDT Timi Person MD CHEMISTRY ORDERABLE S [facility] [place] [address] * (ABNORMAL) CBC (with Diff) (10/31/2023 1:37 AM EDT) White Blood Cell 17.30(H) 4.00 - 9.50 x10(3)/mc L 10/31/2023 2:30 AM EDT [facility] Red Blood Cell 5.27 4.58 - 5.54 x10(6)/mc L 10/31/2023 2:30 AM EDT [facility] Hemoglobin 10.6(L) 13.7 - 16.5 g/dL 10/31/2023 2:30 AM EDT [facility] Hematocrit 35.7(L) 40.5 - 48.5 % 10/31/2023 2:30 AM EDT [facility] Mean Cell Volume 67.7(L) 82.9 - 93.1 fL 10/31/2023 2:30 AM EDT [facility] Mean Cell Hemoglobin 20.1(L) 27.5 - 32.1 pg 10/31/2023 2:30 AM EDT [facility] Mean Cell Hemoglobin Concentration 29.7(L) 32.0 - 35.7 g/dL 10/31/2023 2:30 AM EDT [facility] Platelet 274 145 - 357 x10(3)/mc L 10/31/2023 2:30 AM EDT [facility] Mean Platelet Volume 10.4 7.6 - 12.9 fL 10/31/2023 2:30 AM EDT [facility] RDW Standard Deviation 44.9 36.0 - 45.0 fL 10/31/2023 2:30 AM EDT [facility] RDW coefficient of variation 19.5(H) 11.4 - 13.8 % 10/31/2023 2:30 AM EDT [facility] NRBC% auto 0.0 % 10/31/2023 2:30 AM EDT [facility] NRBC Absolute 0.00 0.00 - 0.00 x10(3)/mc L 10/31/2023 2:30 AM EDT [facility] Neutrophil % 78.8 % 10/31/2023 2:30 AM EDT [facility] Neutrophil Absolute (ANC) - Automated 13.63(H) 1.70 - 6.10 x10(3)/mc L 10/31/2023 2:30 AM EDT [facility] Lymph % 10.2 % 10/31/2023 2:30 AM EDT [facility] Lymph Absolute 1.77 0.90 - 3.20 x10(3)/mc L 10/31/2023 2:30 AM EDT [facility] Monocyte % 9.7 % 10/31/2023 2:30 AM EDT [facility] Monocyte Absolute 1.68(H) 0.30 - 0.90 x10(3)/mc L 10/31/2023 2:30 AM EDT [facility] Eos % 0.2 % 10/31/2023 2:30 AM EDT [facility] Eos Absolute 0.04 0.00 - 0.40 x10(3)/mc L 10/31/2023 2:30 AM EDT [facility] Basophil % 0.3 % 10/31/2023 2:30 AM EDT [facility] Baso Absolute 0.05 0.00 - 0.10 x10(3)/mc L 10/31/2023 2:30 AM EDT [facility] Immature Gran % 0.8 % 2:30 AM T [facility] Immature Gran Absolute 0.13(H) 0.00 - 0.04 x10(3)/mc L 10/31/2023 2:30 AM [facility] Blood VENOUS BLOOD SPECIMEN / Unknown IP Care Team Draw / Unknown 10/31/2023 1:37 AM EDT 10/31/2023 1:42 AM EDT Timi Person MD HEMATOLOGY ORDERABL ES [facility] [place] [address] * (ABNORMAL) Troponin - Single (10/31/2023 1:37 AM EDT) Troponin-T, High Sensitivity 834(H) <=22 ng/L 10/31/2023 2:16 AM EDT [facility] Comment: This patient's troponin T [...] troponin value can be found in the [facility] Laboratory Test Catalog Troponin - [email or web address]/[email or web address] Reference: Fourth [place] Definition of Myocardial Infarction. Journal of the [place] [employer] 2018;72:0904-7986 Blood VENOUS BLOOD SPECIMEN / Unknown IP Care Team Draw / Unknown 10/31/2023 1:37 AM EDT 10/31/2023 1:42 AM EDT Timi Person MD CHEMISTRY ORDERABLE S [facility] [place] [address] * Lipoprotein A (10/31/2023 1:37 AM EDT) Lipoprotein(A) June 30 <75 nmol/L 11/03/2023 5:38 PM EDT [facility] Comment: ADDITIONAL INFORMATION Please notice that Lp(a) values are reported in molar units (nmol/L). ??These units are recommended by professional society guidelines and expert opinion statements. ??Measured results and risk thresholds are higher than those generated using mass units (mg/dL). Cardiovascular risk increases starting at 75 nmol/L. Lp(a) >=125 nmol/L is considered a risk enhancing factor by the [place] [employer]. This test has been modified from the crane operator's instructions. Its performance characteristics were determined by [facility] in a manner consistent with CLIA requirements. This test has not been cleared or approved by the U.S. Food and Drug Administration. Blood VENOUS BLOOD SPECIMEN / Unknown IP Care Team Draw / Unknown 10/31/2023 1:37 AM EDT 10/31/2023 1:42 AM EDT Narrative [facility] - 11/03/2023 5:38 PM EDT Test Performed by: [place] [address] Principal Data Architect: Hugo Betancourt Ph.D.; CLIA# [id number] Janie Smith MD LAB SEND OUT ORDERAB LES [facility] [address] [place], [place] [id number] [place] [address] * (ABNORMAL) POC, GLUCOSE (10/31/2023 1:00 AM EDT) Pathologist [facility] Glucometer, POC 330(H) 65 - 199 mg/dL 10/31/2023 1:01 AM EDT [facility] Comment:Supplemental ranges: <140 mg/dL before meals <180 mg/dL all other times of the day. Blood CAPILLARY BLOOD / Unknown 10/31/2023 1:00 AM EDT 10/31/2023 1:01 AM EDT Timi Person MD POINT OF CARE TEST ORDERABLES [facility] [place] [address] * (ABNORMAL) POC, GLUCOSE (10/30/2023 11:56 PM EDT) Glucometer, POC 349(H) 65 - 199 mg/dL 10/30/2023 11:56 PM EDT [facility] Comment:Supplemental ranges: <140 mg/dL before meals <180 mg/dL all other times of the day. Blood CAPILLARY BLOOD / Unknown 10/30/2023 11:56 PM EDT 10/30/2023 11:56 PM EDT Timi Person MD POINT OF CARE TEST ORDERABLES [facility] [place] [address] * (ABNORMAL) POC, GLUCOSE (10/30/2023 11:02 PM EDT) Glucometer, POC 358(H) 65 - 199 mg/dL 10/30/2023 11:03 PM EDT [facility] Comment:Supplemental ranges: <140 mg/dL before meals <180 mg/dL all other times of the day. Blood CAPILLARY BLOOD / Unknown 10/30/2023 11:02 PM EDT 10/30/2023 11:03 PM EDT Timi Person MD POINT OF CARE TEST ORDERABLES [facility] [place] [address] * (ABNORMAL) POC, GLUCOSE (10/30/2023 10:36 PM EDT) Glucometer, POC 384(H) 65 - 199 mg/dL 10/30/2023 10:36 PM EDT [facility] Comment:Supplemental ranges: <140 mg/dL before meals <180 mg/dL all other times of the day. Blood CAPILLARY BLOOD / Unknown 10/30/2023 10:36 PM EDT 10/30/2023 10:36 PM EDT Timi Person MD POINT OF CARE TEST ORDERABLES Performing Organization Address City/[facility] Co de Phone Number [facility] [place] [address] * (ABNORMAL) POC, GLUCOSE (10/30/2023 10:06 PM EDT) Glucometer, POC 420(H) 65 - 199 mg/dL 10/30/2023 10:06 PM EDT [facility] Comment:Supplemental ranges: <140 mg/dL before meals <180 mg/dL all other times of the day. Blood CAPILLARY BLOOD / Unknown 10/30/2023 10:06 PM EDT 10/30/2023 10:06 PM EDT Timi Person MD POINT OF CARE TEST ORDERABLES Performing Organization Address [facility] Co de Phone Number [facility] [place] [address] * (ABNORMAL) Blood Gas, Arterial POC (10/30/2023 9:30 PM EDT) pH, Arterial 7.32(L) 7.35 - 7.45 10/30/2023 9:32 PM EDT [facility] PCO2, Arterial 41 35 - 45 mmHg 10/30/2023 9:32 PM EDT [facility] PO2, Arterial 67(L) 85 - 104 mmHg 10/30/2023 9:32 PM EDT [facility] Bicarbonate, Arterial 20.4 20.0 - 26.0 mmol/L 10/30/2023 9:32 PM EDT [facility] Base Excess, Arterial -5.8(L) -3.0 - 3.0 mmol/L 10/30/2023 9:32 PM EDT [facility] Hemoglobin, Arterial 11.3(L) 13.7 - 16.5 g/dL 10/30/2023 9:32 PM [facility] Oxyhemoglobin, Arterial 90.9(L) 94.0 - 97.0 % 10/30/2023 9:32 PM [facility] Carboxyhemoglobin , Arterial 0.7 % 10/30/2023 9:32 PM [facility] Comment: Nonsmokers: 0.5-1.5% COHB ?? Smokers: Variable ??but usually less than 10% ?? Toxic: 20-30% COHB ?? Lethal: Greater than 60% COHB Methemoglobin, Arterial 0.3 <=1.5 % 10/30/2023 9:32 PM [facility] Sodium, Arterial 130(L) 135 - 145 mmol/L 10/30/2023 9:32 PM [facility] Potassium, Arterial 5.9(H) 3.5 - 5.0 mmol/L 10/30/2023 9:32 PM [facility] Chloride, Arterial 103 98 - 107 mmol/L 10/30/2023 9:32 PM [facility] Lactate, Arterial 2.2 0.5 - 2.2 mmol/L 10/30/2023 9:32 PM [facility] Fraction of Inspired Oxygen 40 % 10/30/2023 9:32 PM [facility] PF Ratio 168 Ratio 10/30/2023 9:32 PM [facility] Comment:PF ratio calculated using the non-temperature corrected pO2 result. IONIZED CALCIUM, ARTERIAL 1.13(L) 1.15 - 1.33 mmol/L 10/30/2023 9:32 PM [facility] Glucose, Arterial 400(H) 65 - 199 mg/dL 10/30/2023 9:32 PM [facility] Comment:Glucose Concentratio n >=200 mg/dL plus symptoms is consistent with Diabetes Mellitus. Blood ARTERIAL BLOOD / Unknown 10/30/2023 9:30 PM EDT 10/30/2023 9:32 PM EDT Timi Person MD POINT OF CARE TEST ORDERABLES Performing Organization Address City/[facility]/ZIP Co de Phone Number [facility] [place] [address] * (ABNORMAL) POC, GLUCOSE (10/30/2023 8:54 PM EDT) Glucometer, POC 395(H) 65 - 199 mg/dL 10/30/2023 8:54 PM EDT [facility] Comment:Supplemental ranges: <140 mg/dL before meals <180 mg/dL all other times of the day. Blood CAPILLARY BLOOD / Unknown 10/30/2023 8:54 PM EDT 10/30/2023 8:54 PM EDT Timi Person MD POINT OF CARE TEST ORDERABLES Performing Organization Address City/[facility]/ZIP Co de Phone Number [facility] [place] [address] * (ABNORMAL) Potassium (10/30/2023 8:50 PM EDT) Potassium 6.1(HHH) 3.5 - 5.0 mMol/L 10/30/2023 9:30 PM EDT [facility] Blood VENOUS BLOOD SPECIMEN / Unknown IP Care Team Draw / Unknown 10/30/2023 8:50 PM EDT 10/30/2023 8:54 PM EDT Timi Person MD CHEMISTRY ORDERABLE S Performing Organization Address City/[facility]/ZIP Co de Phone Number [facility] [place] [address] * (ABNORMAL) POC, GLUCOSE (10/30/2023 8:04 PM EDT) Glucometer, POC 448(H) 65 - 199 mg/dL 10/30/2023 8:04 PM EDT [facility] Comment:Supplemental ranges: <140 mg/dL before meals <180 mg/dL all other times of the day. Blood CAPILLARY BLOOD / Unknown 10/30/2023 8:04 PM EDT 10/30/2023 8:04 PM EDT Timi Person MD POINT OF CARE TEST ORDERABLES Performing Organization Address City/[facility] Co de Phone Number [facility] [place] [address] * (ABNORMAL) POC, GLUCOSE (10/30/2023 7:34 PM EDT) Glucometer, POC 419(H) 65 - 199 mg/dL 10/30/2023 7:34 PM EDT [facility] Comment:Supplemental ranges: <140 mg/dL before meals <180 mg/dL all other times of the day. Blood CAPILLARY BLOOD / Unknown 10/30/2023 7:34 PM EDT 10/30/2023 7:35 PM EDT Timi Person MD POINT OF CARE TEST ORDERABLES Performing Organization Address [facility] Co de Phone Number [facility] [place] [address] * (ABNORMAL) POC, GLUCOSE (10/30/2023 6:11 PM EDT) Glucometer, POC 357(H) 65 - 199 mg/dL 10/30/2023 6:11 PM EDT [facility] Comment:Supplemental ranges: <140 mg/dL before meals <180 mg/dL all other times of the day. Blood CAPILLARY BLOOD / Unknown 10/30/2023 6:11 PM EDT 10/30/2023 6:12 PM EDT Timi Person MD POINT OF CARE TEST ORDERABLES Performing Organization Address City/[facility] Co de Phone Number [facility] [place] [address] * (ABNORMAL) Blood Gas, Arterial POC (10/30/2023 5:03 PM ED) pH, Arterial 7.24(LLL) 7.35 - 7.45 10/30/2023 5:05 PM [facility] PCO2, Arterial 48(H) 35 - 45 mmHg 10/30/2023 5:05 PM [facility] PO2, Arterial 70(L) 85 - 104 mmHg 10/30/2023 5:05 PM [facility] Bicarbonate, Arterial 20.0 20.0 - 26.0 mmol/L 10/30/2023 5:05 PM [facility] Base Excess, Arterial -7.5(L) -3.0 - 3.0 mmol/L 10/30/2023 5:05 PM [facility] Hemoglobin, Arterial 11.9(L) 13.7 - 16.5 g/dL 10/30/2023 5:05 PM [facility] Oxyhemoglobin, Arterial 90.4(L) 94.0 - 97.0 % 10/30/2023 5:05 PM [facility] Carboxyhemoglobin , Arterial 0.6 % 10/30/2023 5:05 PM [facility] Comment: Nonsmokers: 0.5-1.5% COHB ?? Smokers: Variable ??but usually less than 10% ?? Toxic: 20-30% COHB ?? Lethal: Greater than 60% COHB Methemoglobin, Arterial 0.3 <=1.5 % 10/30/2023 5:05 PM [facility] Sodium, Arterial 131(L) 135 - 145 mmol/L 10/30/2023 5:05 PM [facility] Potassium, Arterial 6.6(HHH) 3.5 - 5.0 mmol/L 10/30/2023 5:05 PM [facility] Chloride, Arterial 104 98 - 107 mmol/L 10/30/2023 5:05 PM [facility] Lactate, Arterial 1.6 0.5 - 2.2 mmol/L 10/30/2023 5:05 PM EDT [facility] Fraction of Inspired Oxygen 40 % 10/30/2023 5:05 PM EDT [facility] PF Ratio 175 Ratio 10/30/2023 5:05 PM EDT [facility] Comment:PF ratio calculated using the non-temperature corrected pO2 result. IONIZED CALCIUM, ARTERIAL 1.17 1.15 - 1.33 mmol/L 10/30/2023 5:05 PM EDT [facility] Glucose, Arterial 373(H) 65 - 199 mg/dL 10/30/2023 5:05 PM EDT [facility] Comment:Glucose Concentratio n >=200 mg/dL plus symptoms is consistent with Diabetes Mellitus. Blood ARTERIAL BLOOD / Unknown 10/30/2023 5:03 PM EDT 10/30/2023 5:05 PM EDT Timi Person MD POINT OF CARE TEST ORDERABLES Performing Organization Address City/[facility]/ZIP Co de Phone Number [facility] [place] [address] * (ABNORMAL) Hemoglobin (10/30/2023 4:57 PM EDT) Hemoglobin 10.8(L) 13.7 - 16.5 g/dL 10/30/2023 5:51 PM EDT [facility] Blood VENOUS BLOOD SPECIMEN / Unknown IP Care Team Draw / Unknown 10/30/2023 4:57 PM EDT 10/30/2023 5:09 PM EDT Timi Person MD [place] [address] * (ABNORMAL) Potassium (10/30/2023 4:57 PM EDT) Potassium 6.8(HHH) 3.5 - 5.0 mMol/L 10/30/2023 5:44 PM EDT [facility] Comment:Results rechecked Blood VENOUS BLOOD SPECIMEN / Unknown IP Care Team Draw / Unknown 10/30/2023 4:57 PM EDT 10/30/2023 5:39 PM EDT Timi Person MD CHEMISTRY ORDERABLE S Performing Organization Address City/[facility]/ZIP Co de Phone Number [facility] [place] [address] * (ABNORMAL) POC, GLUCOSE (10/30/2023 3:10 PM EDT) Glucometer, POC 304(H) 65 - 199 mg/dL 10/30/2023 3:10 PM EDT [facility] Comment:Supplemental ranges: <140 mg/dL before meals <180 mg/dL all other times of the day. Blood CAPILLARY BLOOD / Unknown 10/30/2023 3:10 PM EDT 10/30/2023 3:10 PM EDT Timi Person MD POINT OF CARE TEST ORDERABLES Performing Organization Address City/[facility] Co de Phone Number [facility] [place] [address] * (ABNORMAL) Cooximetry, POC (10/30/2023 2:30 PM EDT) pO2, Coox 30 mmHg 10/30/2023 2:33 PM EDT [facility] Hemoglobin, Coox 11.4(L) 13.7 - 16.5 g/dL 10/30/2023 2:33 PM EDT [facility] Oxyhemoglobin, Coox 51.4 % 10/30/2023 2:33 PM EDT [facility] Carboxyhemoglo bin, Coox 1.2 % 10/30/2023 2:33 PM EDT [facility] Comment: Nonsmokers: 0.5-1.5% COHB ?? Smokers: Variable ??but usually less than 10% ?? Toxic: 20-30% COHB ?? Lethal: Greater than 60% COHB Methemoglobin, Coox 0.3 <=1.5 % 10/30/2023 2:33 PM EDT [facility] Blood (Mixed Venous) 10/30/2023 2:30 PM EDT 10/30/2023 2:33 PM EDT Timi Person MD POINT OF CARE TEST ORDERABLES [facility] [place] [address] * (ABNORMAL) Blood Gas, Arterial POC (10/30/2023 2:27 PM EDT) pH, Arterial 7.31(L) 7.35 - 7.45 10/30/2023 2:28 PM EDT [facility] PCO2, Arterial 38 35 - 45 mmHg 10/30/2023 2:28 PM EDT [facility] PO2, Arterial 78(L) 85 - 104 mmHg 10/30/2023 2:28 PM EDT [facility] Bicarbonate, Arterial 18.7(L) 20.0 - 26.0 mmol/L 10/30/2023 2:28 PM EDT [facility] Base Excess, Arterial -7.5(L) -3.0 - 3.0 mmol/L 10/30/2023 2:28 PM EDT [facility] Hemoglobin, Arterial 11.5(L) 13.7 - 16.5 g/dL 10/30/2023 2:28 PM EDT [facility] Oxyhemoglobin, Arterial 93.6(L) 94.0 - 97.0 % 10/30/2023 2:28 PM EDT [facility] Carboxyhemoglobin , Arterial 0.7 % 10/30/2023 2:28 PM EDT [facility] Comment: Nonsmokers: 0.5-1.5% COHB ?? Smokers: Variable ??but usually less than 10% ?? Toxic: 20-30% COHB ?? Lethal: Greater than 60% COHB Methemoglobin, Arterial 0.3 <=1.5 % 10/30/2023 2:28 PM EDT [facility] Sodium, Arterial 132(L) 135 - 145 mmol/L 10/30/2023 2:28 PM EDT [facility] Potassium, Arterial 5.3(H) 3.5 - 5.0 mmol/L 10/30/2023 2:28 PM EDT [facility] Chloride, Arterial 106 98 - 107 mmol/L 10/30/2023 2:28 PM EDT [facility] Lactate, Arterial 1.8 0.5 - 2.2 mmol/L 10/30/2023 2:28 PM EDT [facility] Fraction of Inspired Oxygen 40 % 10/30/2023 2:28 PM EDT [facility] PF Ratio 195 Ratio 10/30/2023 2:28 PM EDT [facility] Comment:PF ratio calculated using the non-temperature corrected pO2 result. IONIZED CALCIUM, ARTERIAL 1.18 1.15 - 1.33 mmol/L 10/30/2023 2:28 PM EDT [facility] Glucose, Arterial 331(H) 65 - 199 mg/dL 10/30/2023 2:28 PM EDT [facility] Comment:Glucose Concentratio n >=200 mg/dL plus symptoms is consistent with Diabetes Mellitus. Blood ARTERIAL BLOOD / Unknown 10/30/2023 2:27 PM EDT 10/30/2023 2:28 PM EDT Timi Person MD POINT OF CARE TEST ORDERABLES [facility] [place] [address] * (ABNORMAL) Blood Gas, Arterial POC (10/30/2023 1:19 PM EDT) pH, Arterial 7.33(L) 7.35 - 7.45 10/30/2023 1:22 PM [facility] PCO2, Arterial 36 35 - 45 mmHg 10/30/2023 1:22 PM [facility] PO2, Arterial 207(H) 85 - 104 mmHg 10/30/2023 1:22 PM [facility] Bicarbonate, Arterial 18.4(L) 20.0 - 26.0 mmol/L 10/30/2023 1:22 PM [facility] Base Excess, Arterial -7.6(L) -3.0 - 3.0 mmol/L 10/30/2023 1:22 PM [facility] Hemoglobin, Arterial 11.5(L) 13.7 - 16.5 g/dL 10/30/2023 1:22 PM [facility] Oxyhemoglobin, Arterial 97.8(H) 94.0 - 97.0 % 10/30/2023 1:22 PM [facility] Carboxyhemoglobin , Arterial 0.6 % 10/30/2023 1:22 PM [facility] Comment: Nonsmokers: 0.5-1.5% COHB ?? Smokers: Variable ??but usually less than 10% ?? Toxic: 20-30% COHB ?? Lethal: Greater than 60% COHB Methemoglobin, Arterial 0.3 <=1.5 % 10/30/2023 1:22 PM [facility] Sodium, Arterial 134(L) 135 - 145 mmol/L 10/30/2023 1:22 PM [facility] Potassium, Arterial 4.9 3.5 - 5.0 mmol/L 10/30/2023 1:22 PM [facility] Chloride, Arterial 107 98 - 107 mmol/L 10/30/2023 1:22 PM [facility] Lactate, Arterial 1.7 0.5 - 2.2 mmol/L 10/30/2023 1:22 PM [facility] Fraction of Inspired Oxygen 100 % 10/30/2023 1:22 PM EDT [facility] PF Ratio 207 Ratio 10/30/2023 1:22 PM EDT [facility] Comment:PF ratio calculated using the non-temperature corrected pO2 result. IONIZED CALCIUM, ARTERIAL 1.21 1.15 - 1.33 mmol/L 10/30/2023 1:22 PM EDT [facility] Glucose, Arterial 299(H) 65 - 199 mg/dL 10/30/2023 1:22 PM EDT [facility] Comment:Glucose Concentratio n >=200 mg/dL plus symptoms is consistent with Diabetes Mellitus. Blood ARTERIAL BLOOD / Unknown 10/30/2023 1:19 PM EDT 10/30/2023 1:22 PM EDT Timi Person MD POINT OF CARE TEST ORDERABLES [facility] [place] [address] * XR Chest One View (10/30/2023 1:18 PM EDT) [employer] WORKSTATION ID [id number] DH RAD Anatomical Region Laterality Modality Chest N/A Digital Radiogra phy Impressions 10/30/2023 1:44 PM EDT Interval median sternotomy and CABG with supportive lines and tubes in place I have personally reviewed the image(s) and the resident's interpretation and agree with the findings, Minesh Way MD at 10/30/2023 1:44 PM Thank you for letting us participate in the care of this patient. ??If you are a health care provider and have any questions regarding this report, please contact the number below. ??For patients who have questions please contact the health personal care assistant that requested your imaging first. ? Narrative 10/30/2023 1:44 PM EDT EXAMINATION: XR CHEST ONE VIEW CLINICAL HISTORY: S/P CABG TECHNIQUE: 1 view of the chest COMPARISON: Chest radiograph 09/21/2021 FINDINGS: Support devices: * ??Right IJ approach pulmonary arterial catheter projects in the right interlobar pulmonary artery. * ??Endotracheal tube projects 2.3 cm above the steve. * ??Enteric tube projects in the left upper quadrant in the region of the stomach. * ??2 mediastinal chest tubes and left chest tube Interval median sternotomy and CABG. There is left basilar atelectasis and/or small pleural effusion. Procedure Note Minesh Way MD - 10/30/2023 EXAMINATION: XR CHEST ONE VIEW CLINICAL HISTORY: S/P CABG TECHNIQUE: 1 view of the chest COMPARISON: Chest radiograph 09/21/2021 FINDINGS: Support devices: * Right IJ approach pulmonary arterial catheter projects in the right interlobar pulmonary artery. * Endotracheal tube projects 2.3 cm above the steve. * Enteric tube projects in the left upper quadrant in the region of the stomach. * 2 mediastinal chest tubes and left chest tube Interval median sternotomy and CABG. There is left basilar atelectasisand/or small pleural effusion. IMPRESSION Interval median sternotomy and CABG with supportive lines and tubes inplace I have personally reviewed the image(s) and the resident's interpretationand agree with the findings, Minesh Way MD at 10/30/2023 1:44 PM Thank you for letting us participate in the care of this patient. If youare a health care provider and have any questions regarding this report,please contact the number below. For patients who have questions please contactthe health personal care assistant that requested your imaging first. 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 ) Abnormal ECG When compared with ECG of 04-AUG-2023 10:51, Incomplete right bundle branch block is now Present Minimal criteria for Anterior infarct are no longer Present Confirmed by MD Darek, Liam ([id number]) on 10/30/2023 6:54:53 PM MUSE SYSTEM 10/30/2023 1:07 PM EDT 10/30/2023 6:54 PM EDT Timi Person MD ECG ORDERABLES Performing Organization Address City/[facility] Co de Phone Number MUSE SYSTEM * Prepare RBC (10/30/2023 12:48 PM EDT) Status Information Returned [facility] Product Identification RBC [facility] Unit Number [id number] [facility] Product [facility] [id number] [facility] Unit Blood Type OPOS [facility] Specimen Expiration Date [id number] [facility] Volulme 350 [facility] Issue Date / Time [facility] Status [facility] Returned [facility] Product Identification RBC [facility] Unit Number [id number] [facility] Product [facility] [id number] [facility] Unit Blood Type OPOS [facility] Specimen Expiration Date [facility] Volulme 275 [facility] Issue Date / Time [facility] Blood 10/30/2023 6:5 6 AM EDT Timi Person MD BLOOD BANK PRODUCT ORDERABLES [facility] [place] [address] * (ABNORMAL) Blood Gas, Arterial POC (10/30/2023 11:55 AM EDT) pH, Arterial 7.31(L) 7.35 - 7.45 10/30/2023 11:56 AM [facility] PCO2, Arterial 45 35 - 45 mmHg 10/30/2023 11:56 AM [facility] PO2, Arterial 69(L) 85 - 104 mmHg 10/30/2023 11:56 AM [facility] Bicarbonate, Arterial 22.1 20.0 - 26.0 mmol/L 10/30/2023 11:56 AM [facility] Base Excess, Arterial -4.1(L) -3.0 - 3.0 mmol/L 10/30/2023 11:56 AM [facility] Hemoglobin, Arterial 8.6(L) 13.7 - 16.5 g/dL 10/30/2023 11:56 AM [facility] Oxyhemoglobin, Arterial 90.3(L) 94.0 - 97.0 % 10/30/2023 11:56 AM [facility] Carboxyhemoglobin , Arterial 0.1 % 10/30/2023 11:56 AM [facility] Comment: Nonsmokers: 0.5-1.5% COHB ?? Smokers: Variable ??but usually less than 10% ?? Toxic: 20-30% COHB ?? Lethal: Greater than 60% COHB Methemoglobin, Arterial 0.2 <=1.5 % 10/30/2023 11:56 AM [facility] Sodium, Arterial 134(L) 135 - 145 mmol/L 10/30/2023 11:56 AM [facility] Potassium, Arterial 5.2(H) 3.5 - 5.0 mmol/L 10/30/2023 11:56 AM [facility] Chloride, Arterial 108(H) 98 - 107 mmol/L 10/30/2023 11:56 AM EDT [facility] Lactate, Arterial 2.1 0.5 - 2.2 mmol/L 10/30/2023 11:56 AM EDT [facility] IONIZED CALCIUM, ARTERIAL 1.33 1.15 - 1.33 mmol/L 10/30/2023 11:56 AM EDT [facility] Glucose, Arterial 184 65 - 199 mg/dL 10/30/2023 11:56 AM EDT [facility] Comment:Glucose Concentratio n >=200 mg/dL plus symptoms is consistent with Diabetes Mellitus. Blood ARTERIAL BLOOD / Unknown 10/30/2023 11:55 AM EDT 10/30/2023 11:56 AM EDT Timi Person MD POINT OF CARE TEST ORDERABLES Performing Organization Address City/State/[facility] Co de Phone Number [facility] [place] [address] * (ABNORMAL) Blood Gas, Arterial POC (10/30/2023 11:03 AM EDT) pH, Arterial 7.37 7.35 - 7.45 10/30/2023 11:04 AM EDT [facility] PCO2, Arterial 43 35 - 45 mmHg 10/30/2023 11:[facility] PO2, Arterial 305(H) 85 - 104 mmHg 10/30/2023 11:04 AM EDT [facility] Bicarbonate, Arterial 23.9 20.0 - 26.0 mmol/L 10/30/2023 11:04 AM EDT [facility] Base Excess, Arterial -1.4 -3.0 - 3.0 mmol/L 10/30/2023 11:04 AM EDT [facility] Hemoglobin, Arterial 9.0(L) 13.7 - 16.5 g/dL 10/30/2023 11:04 [facility] Oxyhemoglobin, Arterial 98.6(H) 94.0 - 97.0 % 10/30/2023 11:04 AM EDT [facility] Carboxyhemoglobin , Arterial 0.1 % 10/30/2023 11:04 AM EDT [facility] Comment: Nonsmokers: 0.5-1.5% COHB ?? Smokers: Variable ??but usually less than 10% ?? Toxic: 20-30% COHB ?? Lethal: Greater than 60% COHB Methemoglobin, Arterial 0.1 <=1.5 % 10/30/2023 11:04 AM EDT [facility] Sodium, Arterial 135 135 - 145 mmol/L 10/30/2023 11:04 AM EDT [facility] Potassium, Arterial 5.2(H) 3.5 - 5.0 mmol/L 10/30/2023 11:04 AM EDT [facility] Chloride, Arterial 106 98 - 107 mmol/L 10/30/2023 11:04 AM EDT [facility] Lactate, Arterial 1.0 0.5 - 2.2 mmol/L 10/30/2023 11:04 AM EDT [facility] IONIZED CALCIUM, ARTERIAL 1.02(L) 1.15 - 1.33 mmol/L 10/30/2023 11:04 AM EDT [facility] Glucose, Arterial 123 65 - 199 mg/dL 10/30/2023 11:04 AM EDT [facility] Comment:Glucose Concentratio n >=200 mg/dL plus symptoms is consistent with Diabetes Mellitus. Blood ARTERIAL BLOOD / Unknown 10/30/2023 11:03 AM EDT 10/30/2023 11:04 AM EDT Timi Person MD POINT OF CARE TEST ORDERABLES [facility] [place] [address] * (ABNORMAL) Blood Gas, Arterial POC (10/30/2023 10:30 AM EDT) pH, Arterial 7.36 7.35 - 7.45 10/31/2023 6:24 AM [facility] PCO2, Arterial 42 35 - 45 mmHg 10/31/2023 6:24 AM [facility] PO2, Arterial 318(H) 85 - 104 mmHg 10/31/2023 6:24 AM [facility] Bicarbonate, Arterial 23.3 20.0 - 26.0 mmol/L 10/31/2023 6:24 AM [facility] Base Excess, Arterial -2.2 -3.0 - 3.0 mmol/L 10/31/2023 6:24 AM [facility] Hemoglobin, Arterial 8.6(L) 13.7 - 16.5 g/dL 10/31/2023 6:24 AM [facility] Oxyhemoglobin, Arterial 98.4(H) 94.0 - 97.0 % 10/31/2023 6:24 AM [facility] Carboxyhemoglobin , Arterial 0.3 % 10/31/2023 6:24 AM [facility] Comment: Nonsmokers: 0.5-1.5% COHB ?? Smokers: Variable ??but usually less than 10% ?? Toxic: 20-30% COHB ?? Lethal: Greater than 60% COHB Methemoglobin, Arterial 0.0 <=1.5 % 10/31/2023 6:24 AM [facility] Sodium, Arterial 135 135 - 145 mmol/L 10/31/2023 6:24 AM [facility] Potassium, Arterial 4.8 3.5 - 5.0 mmol/L 10/31/2023 6:24 AM [facility] Chloride, Arterial 106 98 - 107 mmol/L 10/31/2023 6:24 AM [facility] Lactate, Arterial 1.1 0.5 - 2.2 mmol/L 10/31/2023 6:24 AM [facility] IONIZED CALCIUM, ARTERIAL 1.02(L) 1.15 - 1.33 mmol/L 10/31/2023 6:24 AM EDT [facility] Glucose, Arterial 120 65 - 199 mg/dL 10/31/2023 6:24 AM EDT [facility] Comment:Glucose Concentratio n >=200 mg/dL plus symptoms is consistent with Diabetes Mellitus. Blood ARTERIAL BLOOD / Unknown 10/30/2023 10:30 AM EDT 10/31/2023 6:23 AM EDT Timi Person MD POINT OF CARE TEST ORDERABLES Performing Organization Address [facility]/ZIP Co de Phone Number [facility] [place] [address] * Platelet count (10/30/2023 10:14 AM EDT) Platelet 193 145 - 357 x10(3)/mcL 10/30/2023 12:45 PM EDT [facility] Blood ARTERIAL BLOOD / Unknown 10/30/2023 10:14 AM EDT Comment:Pre-op diagnosis: ASCVD Timi Person MD HEMATOLOGY ORDERABL ES Performing Organization Address [facility] Co de Phone Number [facility] [place] [address] * (ABNORMAL) Hemoglobin and Hematocrit, blood (10/30/2023 10:14 AM EDT) Hemoglobin 7.7(L) 13.7 - 16.5 g/dL 10/30/2023 12:45 PM EDT [facility] Hematocrit 27.0(L) 40.5 - 48.5 % 10/30/2023 12:45 PM EDT [facility] Comment:This result has been called to Marietta Lincoln by Pat Malloy on 10/30/2023 12:44:50, and has been read back. Blood ARTERIAL BLOOD / Unknown 10/30/2023 10:14 AM EDT 10/30/2023 12:00 PM EDT Comment:Pre-op diagnosis: ASCVD Timi Person MD HEMATOLOGY ORDERABL ES Performing Organization Address [facility] Co de Phone Number [facility] [place] [address] * APTT (10/30/2023 10:14 AM EDT) Partial Thromboplastin Time 29 25 - 37 sec 10/30/2023 12:13 PM EDT [facility] Comment: The PTT is NOT appropriate for heparin monitoring. Use the Anti-Xa level for heparin monitoring (HEP UFH) or LMWH monitoring (HEP LMW). A PTT less than 37 seconds generally indicates adequate hemostasis. Blood ARTERIAL BLOOD / Unknown 10/30/2023 10:14 AM EDT 10/30/2023 12:00 PM EDT Comment:Pre-op diagnosis: ASCVD Timi Person MD HEMATOLOGY ORDERABL ES Performing Organization Address [facility] de Phone Number [facility] [place] [address] * Prothrombin Time (10/30/2023 10:14 AM EDT) Prothrombin Time 12.4 9.4 - 12.5 sec 10/30/2023 12:13 PM EDT [facility] International Normalization Ratio 1.1 <=4.9 10/30/2023 12:13 PM EDT [facility] Comment: An INR < 2.0 [...] be appropriate depending on clinical circumstances. Blood ARTERIAL BLOOD / Unknown 10/30/2023 10:14 AM EDT 10/30/2023 12:00 PM EDT Comment:Pre-op diagnosis: ASCVD Timi Person MD HEMATOLOGY ORDERABL ES Performing Organization Address City/[facility]/ZIP Co de Phone Number [facility] [place] [address] * Fibrinogen (10/30/2023 10:14 AM EDT) Pathologist [facility] Fibrinogen 369 200 - 393 mg/dL 10/30/2023 12:13 PM EDT [facility] Comment: A fibrinogen level >100 mg/dL is adequate for hemostasis in most patients without underlying bleeding disorders. Blood ARTERIAL BLOOD / Unknown 10/30/2023 10:14 AM EDT 10/30/2023 12:00 PM EDT Comment:Pre-op diagnosis: ASCVD Timi Person MD HEMATOLOGY ORDERABL ES Performing Organization Address [facility] Co de Phone Number [facility] [place] [address] * (ABNORMAL) Blood Gas, Venous POC (10/30/2023 10:09 AM EDT) pH, Venous 7.30(L) 7.32 - 7.42 10/30/2023 10:11 AM EDT [facility] PCO2, Venous 47 38 - 58 mmHg 10/30/2023 10:11 AM EDT [facility] PO2, Venous 60 16 - 65 mmHg 10/30/2023 10:11 AM EDT [facility] Bicarbonate, Venous 22.6 22 - 31 mmol/L 10/30/2023 10:11 AM EDT [facility] Base Excess, Venous -3.8(L) 1.9 - 4.5 mmol/L 10/30/2023 10:11 AM EDT [facility] Hemoglobin, Venous 7.9(L) 13.7 - 16.5 g/dL 10/30/2023 10:11 AM EDT [facility] Oxyhemoglobin, Venous 84.6 % 10/30/2023 10:11 AM EDT [facility] Carboxyhemoglobin , Venous 1.0 % 10/30/2023 10:11 AM EDT [facility] Comment: Nonsmokers: 0.5-1.5% COHB ?? Smokers: Variable ??but usually less than 10% ?? Toxic: 20-30% COHB ?? Lethal: Greater than 60% COHB Methemoglobin, Venous 0.2 <=1.5 % 10/30/2023 10:11 AM EDT [facility] Sodium, Venous 131(L) 135 - 145 mmol/L 10/30/2023 10:11 AM EDT [facility] Potassium, Venous 5.4(H) 3.5 - 5.0 mmol/L 10/30/2023 10:11 AM EDT [facility] Chloride, Venous 104 98 - 107 mmol/L 10/30/2023 10:11 AM EDT [facility] Glucose, Venous 124 65 - 199 mg/dL 10/30/2023 10:[facility] Comment:Glucose Concentratio n >=200 mg/dL plus symptoms is consistent with Diabetes Mellitus. Lactate, Venous 1.2 0.5 - 2.2 mmol/L 10/30/2023 10:11 AM EDT [facility] Ionized Calcium, Venous 0.98(L) 1.15 - 1.33 mmol/L 10/30/2023 10:11 AM EDT [facility] Blood VENOUS BLOOD SPECIMEN / Unknown 10/30/2023 10:09 AM EDT 10/30/2023 10:11 AM EDT Timi Person MD POINT OF CARE TEST ORDERABLES [facility] [place] [address] * (ABNORMAL) Blood Gas, Arterial POC (10/30/2023 10:07 AM EDT) pH, Arterial 7.31(L) 7.35 - 7.45 10/30/2023 10:08 AM EDT [facility] PCO2, Arterial 43 35 - 45 mmHg 10/30/2023 10:08 AM [facility] PO2, Arterial 305(H) 85 - 104 mmHg 10/30/2023 10:08 AM [facility] Bicarbonate, Arterial 21.1 20.0 - 26.0 mmol/L 10/30/2023 10:08 AM [facility] Base Excess, Arterial -5.1(L) -3.0 - 3.0 mmol/L 10/30/2023 10:08 AM [facility] Hemoglobin, Arterial 7.9(L) 13.7 - 16.5 g/dL 10/30/2023 10:08 AM [facility] Oxyhemoglobin, Arterial 97.7(H) 94.0 - 97.0 % 10/30/2023 10:08 AM [facility] Carboxyhemoglobin , Arterial 0.6 % 10/30/2023 10:08 AM [facility] Comment: Nonsmokers: 0.5-1.5% COHB ?? Smokers: Variable ??but usually less than 10% ?? Toxic: 20-30% COHB ?? Lethal: Greater than 60% COHB Methemoglobin, Arterial 0.3 <=1.5 % 10/30/2023 10:08 AM [facility] Sodium, Arterial 132(L) 135 - 145 mmol/L 10/30/2023 10:08 AM [facility] Potassium, Arterial 5.2(H) 3.5 - 5.0 mmol/L 10/30/2023 10:08 AM [facility] Chloride, Arterial 105 98 - 107 mmol/L 10/30/2023 10:08 AM [facility] Lactate, Arterial 1.2 0.5 - 2.2 mmol/L 10/30/2023 10:08 AM [facility] IONIZED CALCIUM, ARTERIAL 0.99(L) 1.15 - 1.33 mmol/L 10/30/2023 10:08 AM [facility] Glucose, Arterial 124 65 - 199 mg/dL 10/30/2023 10:08 AM EDT [facility] Comment:Glucose Concentratio n >=200 mg/dL plus symptoms is consistent with Diabetes Mellitus. Blood ARTERIAL BLOOD / Unknown 10/30/2023 10:07 AM EDT 10/30/2023 10:08 AM EDT Timi Person MD POINT OF CARE TEST ORDERABLES [facility] [place] [address] * (ABNORMAL) Blood Gas, Arterial POC (10/30/2023 8:44 AM EDT) pH, Arterial 7.34(L) 7.35 - 7.45 10/30/2023 8:45 AM EDT [facility] PCO2, Arterial 37 35 - 45 mmHg 10/30/2023 8:45 AM EDT [facility] PO2, Arterial 183(H) 85 - 104 mmHg 10/30/2023 8:45 AM EDT [facility] Bicarbonate, Arterial 19.8(L) 20.0 - 26.0 mmol/L 10/30/2023 8:45 AM EDT [facility] Base Excess, Arterial -5.9(L) -3.0 - 3.0 mmol/L 10/30/2023 8:45 AM EDT [facility] Hemoglobin, Arterial 11.5(L) 13.7 - 16.5 g/dL 10/30/2023 8:45 AM EDT [facility] Oxyhemoglobin, Arterial 98.2(H) 94.0 - 97.0 % 10/30/2023 8:45 AM EDT [facility] Carboxyhemoglobin , Arterial 0.3 % 10/30/2023 8:45 AM EDT [facility] Comment: Nonsmokers: 0.5-1.5% COHB ?? Smokers: Variable ??but usually less than 10% ?? Toxic: 20-30% COHB ?? Lethal: Greater than 60% COHB Methemoglobin, Arterial 0.0 <=1.5 % 10/30/2023 8:45 AM EDT [facility] Sodium, Arterial 140 135 - 145 mmol/L 10/30/2023 8:45 AM EDT [facility] Potassium, Arterial 4.3 3.5 - 5.0 mmol/L 10/30/2023 8:45 AM EDT [facility] Chloride, Arterial 107 98 - 107 mmol/L 10/30/2023 8:45 AM EDT [facility] Lactate, Arterial 1.6 0.5 - 2.2 mmol/L 10/30/2023 8:45 AM EDT [facility] IONIZED CALCIUM, ARTERIAL 1.15 1.15 - 1.33 mmol/L 10/30/2023 8:45 AM EDT [facility] Glucose, Arterial 118 65 - 199 mg/dL 10/30/2023 8:45 AM EDT [facility] Comment:Glucose Concentratio n >=200 mg/dL plus symptoms is consistent with Diabetes Mellitus. Blood ARTERIAL BLOOD / Unknown 10/30/2023 8:44 AM EDT 10/30/2023 8:45 AM EDT Timi Person MD POINT OF CARE TEST ORDERABLES Performing Organization Address City/[facility]/[place] [address] * Platelet count (10/30/2023 8:24 AM EDT) Platelet 187 145 - 357 x10(3)/mcL 10/30/2023 11:16 AM EDT [facility] Blood ARTERIAL BLOOD / Unknown 10/30/2023 8:24 AM EDT Comment:Pre-op diagnosis: ASCVD Timi Person MD HEMATOLOGY ORDERABL ES Performing Organization Address City/[facility]/ZIP Co de Phone Number [facility] [place] [address] * (ABNORMAL) Hemoglobin and Hematocrit, blood (10/30/2023 8:24 AM EDT) Hemoglobin 8.3(L) 13.7 - 16.5 g/dL 10/30/2023 11:16 AM EDT [facility] Hematocrit 28.2(L) 40.5 - 48.5 % 10/30/2023 11:16 AM EDT [facility] Comment:This result has been called to Marietta Lincoln by Evan Dhaliwal on 10/30/2023 11:15:57, and has been read back. Blood ARTERIAL BLOOD / Unknown 10/30/2023 8:24 AM EDT 10/30/2023 11:07 AM EDT Comment:Pre-op diagnosis: ASCVD Timi Person MD HEMATOLOGY ORDERABL ES Performing Organization Address City/[facility]/ZIP Co de Phone Number [facility] [place] [address] * (ABNORMAL) Fibrinogen (10/30/2023 8:24 AM EDT) Fibrinogen 418(H) 200 - 393 mg/dL 10/30/2023 11:36 AM EDT [facility] Comment: A fibrinogen level >100 mg/dL is adequate for hemostasis in most patients without underlying bleeding disorders. Blood ARTERIAL BLOOD / Unknown 10/30/2023 8:24 AM EDT 10/30/2023 11:07 AM EDT Comment:Pre-op diagnosis: ASCVD Timi Person MD HEMATOLOGY ORDERABL ES [facility] [place] [address] * (ABNORMAL) Comprehensive metabolic panel (non-fasting) (10/30/2023 6:57 AM EDT) Glucose 70 65 - 99 mg/dL 10/30/2023 7:31 AM EDT [facility] Comment: Fasting Glucose Interpretive Criteria: Normal: 65-99 mg/dL ?? Prediabetes: 100-125 mg/dL ?? Consistent with Diabetes Mellitus: > or = 126 mg/dL ?? Classification and Diagnosis of Diabetes: Standards of Care in Diabetes - 2022. Diabetes Care 2022; 46:S19. Fasting is defined as no caloric intake for at least 8 hours. Blood Urea Nitrogen 41(H) 10 - 20 mg/dL 10/30/2023 7:31 AM [facility] Creatinine 2.94(H) 0.80 - 1.50 mg/dL 10/30/2023 7:31 AM [facility] Sodium 142 135 - 145 mMol/L 10/30/2023 7:31 AM [facility] Potassium 4.4 3.5 - 5.0 mMol/L 10/30/2023 7:31 AM [facility] Chloride 107 98 - 107 mMol/L 10/30/2023 7:31 AM [facility] Carbon Dioxide 24 22 - 31 mMol/L 10/30/2023 7:31 AM [facility] Anion Gap 11 5 - 15 mMol/L 10/30/2023 7:31 AM [facility] Calcium 8.6 8.5 - 10.5 mg/dL 10/30/2023 7:31 AM [facility] Protein, Total 6.2 6.1 - 8.0 g/dL 10/30/2023 7:31 AM [facility] Albumin 3.2 3.2 - 5.2 g/dL 10/30/2023 7:31 AM [facility] Aspartate Aminotransferase 16 <=39 unit/L 10/30/2023 7:31 AM [facility] Alanine Aminotransferase 13 0 - 55 unit/L 10/30/2023 7:31 AM [facility] Alkaline Phosphatase 77 40 - 130 unit/L 10/30/2023 7:31 AM [facility] Bilirubin, Total 0.3 <=1.3 mg/dL 10/30/2023 7:31 AM EDT [facility] Est Glomerular Filtration Rate - Male 26 mL/min/1. 73 m?? 10/30/2023 7:31 AM EDT [facility] Comment: This patient's estimated GFR [...] eGFR Calculator [employer] Fasting Status Yes 10/30/2023 7:31 AM EDT [facility] Blood VENOUS BLOOD SPECIMEN / Unknown Venipuncture / Unknown 10/30/2023 6:57 AM EDT 10/30/2023 7:01 AM EDT Price Ramirez MD CHEMISTRY ORDERABLES [facility] [place] [address] * ABORH RECHECK (10/30/2023 6:50 AM EDT) ABORH Recheck O POSITIVE 10/30/2023 7:27 AM EDT [facility] Blood VENOUS BLOOD SPECIMEN / Unknown Venipuncture / Unknown 10/30/2023 6:50 AM EDT 10/30/2023 6:50 AM EDT Timi Person MD BLOOD BANK LAB [facility] [place] [address] * POC, GLUCOSE (10/30/2023 6:38 AM EDT) Glucometer, POC 70 65 - 199 mg/dL 10/30/2023 6:40 AM EDT [facility] Comment:Supplemental ranges: <140 mg/dL before meals <180 mg/dL all other times of the day. Blood CAPILLARY BLOOD / Unknown 10/30/2023 6:38 AM EDT 10/30/2023 6:40 AM EDT Timi Person MD POINT OF CARE TEST ORDERABLES Performing Organization Address City/State/[facility] Co de Phone Number [facility] [place] [address] * Transesophageal Echo/OR (10/30/2023 6:04 AM EDT) Anatomical Region Laterality Modality Cardiac Other 10/30/2023 6:04 AM EDT Narrative 10/31/2023 1:50 PM EDT Version: 1 Study ID: [id number] [address] [place] [address] ? OR Transesophageal Echo Report Name: HAYDEN RUSSO ? Study Date: 10/30/2023, 6: 04 AM : 1975 Age: 47 Years Gender: Male Ordering Physician: TIMI PERSON Referring Physician: LUIS GASTON ? Conclusions [facility] pre and post CABG surgery. PREOPERATIVE EXAMINATION [...] MD - 10/31/2023 Version: 1 Study ID: [id number] [address] [place] [id number] ORTransesophageal Echo Report Name: HAYDEN RUSSO Study Date: 10/30/2023,6: 04 AM : 1975 Age: 47 Years Gender: Male Ordering Physician: TIMI PERSON Referring Physician: LUIS GASTON Conclusions [facility] pre and post CABG surgery. 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, with long-term current use of insulin, unspecified laterality S/P CABG x 3 Postsurgical aortocoronary bypass status Hypertension, unspecified type ST elevation myocardial infarction (STEMI), unspecified artery Diabetes mellitus Type II or unspecified type diabetes mellitus without mention of complication, not stated as uncontrolled Hypertension Unspecified essential hypertension CAD (coronary artery disease) Coronary atherosclerosis of unspecified type of vessel, lovelock or graft Class 3 severe obesity in adult CKD (chronic kidney disease) Chronic kidney disease, unspecified DONAL (acute kidney injury) Acute kidney failure, unspecified Respiratory failure with hypoxia Acute respiratory failure documented in this encounter Admitting Diagnoses Diagnosis S/P CABG x 3 Postsurgical aortocoronary bypass status documented in this encounter Administered Medications Inactive Administered Medications - up to 3 most recent administrations Medication Order MAR Action Action Date Dose Rate Site acetaminophen (Ofirmev) (1,000 mg/100 mL) infusion 1,000 mg 1,000 mg, Intravenous, at 400 mL/hr, Administer over 15 Minutes, EVERY 6 HOURS SCHEDULED, 4 doses, First dose on Mon10/30/23 at 1330, Last dose on Mon10/31/23 at 0600, - Maximum dose of acetaminophen is 4,000 mg from all sources in 24 hours. - Unless otherwise specified, when ordered PRN for pain, acetaminophen should be given first if other PRN pain medications are ordered., Routine, Is ketorolac (Toradol) IV contraindicated? Yes, Can this patient tolerate oral medications or suppositories? No Given 10/31/2023 6:09 AM EDT 1,000 mg 400 mL/hr Given 10/30/2023 11:31 PM EDT 1,000 mg 400 mL/hr Given 10/30/2023 6:26 PM EDT 1,000 mg 400 mL/hr acetaminophen (Ofirmev) (1,000 mg/100 mL) infusion 1,000 mg 1,000 mg, Intravenous, at 400 mL/hr, Administer over 15 Minutes, EVERY 6 HOURS SCHEDULED, 4 doses, First dose on Mon10/31/23 at 1400, Last dose on Mon11/01/23 at 0600, - Maximum dose of acetaminophen is 4,000 mg from all sources in 24 hours. - Unless otherwise specified, when ordered PRN for pain, acetaminophen should be given first if other PRN pain medications are ordered., Routine, Is ketorolac (Toradol) IV contraindicated? Yes, Can this patient tolerate oral medications or suppositories? No Given 11/01/2023 5:34 AM EDT 1,000 mg 400 mL/hr Given 10/31/2023 11:45 PM EDT 1,000 mg 400 mL/hr Given 10/31/2023 5:44 PM EDT 1,000 mg 400 mL/hr acetaminophen (Tylenol) (32.02 mg/mL) oral liquid 1,000 mg 1,000 mg, Oral, EVERY 6 HOURS SCHEDULED, First dose (after last modification) on Mon11/04/23 at 1200, Until Discontinued, - Maximum dose of acetaminophen is 4,000 mg from all sources in 24 hours. - Unless otherwise specified, when ordered PRN for pain, acetaminophen should be given first if other PRN pain medications are ordered., Routine Given 11/16/2023 5:26 AM EDT 1,000 mg Given 11/16/2023 12:34 AM EDT 1,000 mg Given 11/15/2023 5:33 PM EDT 1,000 mg acetaminophen (Tylenol) (32.02 mg/mL) oral liquid 650 mg 650 mg, Oral, EVERY 6 HOURS SCHEDULED, First dose on Mon11/03/23 at 1400, Until Discontinued, - Maximum dose of acetaminophen is 4,000 mg from all sources in 24 hours. - Unless otherwise specified, when ordered PRN for pain, acetaminophen should be given first if other PRN pain medications are ordered., Routine Given 11/04/2023 5:54 AM EDT 650 mg Given 11/03/2023 11:05 PM EDT 650 mg Given 11/03/2023 5:35 PM EDT 650 mg acetaminophen (Tylenol) tablet 975 mg 975 mg, Oral, EVERY 6 HOURS SCHEDULED, First dose on Mon10/31/23 at 1200, Until Discontinued, For pain when taking by mouth. Maximum dose of acetaminophen is 4,000 mg from all sources in 24 hours. When ordered for pain, acetaminophen should be given even when other ordered pain medications are indicated., Routine Given 10/31/2023 1:02 PM EDT 975 mg acetaminophen (Tylenol) tablet 975 mg 975 mg, Oral, EVERY 6 HOURS SCHEDULED, First dose (after last reorder) on Mon11/01/23 at 1200, Until Discontinued, For pain when taking by mouth. Maximum dose of acetaminophen is 4,000 mg from all sources in 24 hours. When ordered for pain, acetaminophen should be given even when other ordered pain medications are indicated., Routine Given 11/03/2023 5:12 AM EDT 975 mg Given 11/03/2023 12:30 AM EDT 975 mg Given 11/02/2023 5:12 PM EDT 975 mg acetaminophen (Tylenol) tablet 975 mg 975 mg, Oral, EVERY 6 HOURS SCHEDULED, First dose on Mon11/16/23 at 1200, Until Discontinued, - Maximum dose of acetaminophen is 4,000 mg from all sources in 24 hours. - Unless otherwise specified, when ordered PRN for pain, acetaminophen should be given first if other PRN pain medications are ordered., Routine Given 11/18/2023 5:59 AM EDT 975 mg Given 11/17/2023 11:34 PM EDT 975 mg Given 11/17/2023 5:10 PM EDT 975 mg albumin (human) 5% 250 mL intravenous solution 12.5 g, Intravenous, EVERY 15 MIN PRN, 2 doses, Starting on Mon10/30/23 at 1302, Until Mon10/31/23 at 0221, Other, As needed for volume replacement to maintain cardiac index greater than or equal to 2.0 L/min/M2, 1 bottle (unit) = 12.5 grams / 250 mL (Total Dose = 25 grams = 2 bottles), STAT New Bag 10/31/2023 2:06 AM EDT 12.5 g New Bag 10/30/2023 2:04 PM EDT 12.5 g albuteroL 90 mcg/actuation inhaler 6 puff 6 puff, Inhalation, EVERY 4 HOURS SCHEDULED, First dose on 10/30/23 at 1330, Until Discontinued, While INtubated. , Routine, Is there a contraindication to the patient receiving this medication as a nebulizer? Yes Given 11/10/2023 7:40 AM EDT 6 puffs Given 11/10/2023 3:56 AM EDT 6 puffs Given 11/10/2023 12:39 AM EDT 6 puffs AMIOdarone (CORDARONE) bolus from bag 150 mg 150 mg, Intravenous, Administer over 10 Minutes, ONCE, 1 dose, On Polina 11/02/23 at 1315, Warning Vesicant/Irritant Medication , Routine Bolus from Bag 11/02/2023 2:00 PM EDT 150 mg AMIOdarone (Nexterone) (1.5 mg/mL) in dextrose 5% 100 mL bolus infusion 150 mg 150 mg, Intravenous, at 600 mL/hr, Administer over 10 Minutes, ONCE, 1 dose, On Mon11/10/23 at 1330, Warning Vesicant/Irritant Medication , Routine Bolus from Bag 11/10/2023 1:06 PM EDT 150 mg 600 mL/hr AMIOdarone (Nexterone) (1.8 mg/mL) in dextrose (iso-osmotic) infusion 1 mg/min (33.3333 mL/hr, rounded to 33.3 mL/hr), Intravenous, CONTINUOUS, Starting on Polina 11/02/23 at 1315, Until Polina 11/02/23 at 1914, Rotate IV site every 12 hours to prevent phlebitis Use in-line filter. Warning Vesicant/Irritant Medication Rate/Dose Verify 11/02/2023 6:00 PM EDT 1 mg/min 33.3 mL/hr Rate/Dose Verify 11/02/2023 4:00 PM EDT 1 mg/min 33.3 mL /hr New Bag 11/02/2023 3:36 PM EDT 1 mg/min 33.3 mL/hr AMIOdarone (Nexterone) (1.8 mg/mL) in dextrose (iso-osmotic) infusion 0.5 mg/min (16.6667 mL/hr, rounded to 16.7 mL/hr), Intravenous, CONTINUOUS, Starting on Mon11/02/23 at 1915, Until Mon11/03/23 at 1300, After 24 hours from the start time of the AMIOdarone infusion, call MD regarding continuing infusion or changing to oral dosing. Rotate IV site every 12 hours to prevent phlebitis Use in-line filter. Warning Vesicant/Irritant Medication Rate/Dose Verify 11/03/2023 12:00 PM EDT 0.5 mg/min 16.7 mL/hr Rate/Dose Verify 11/03/2023 10:00 AM EDT 0.5 mg/min 16.7 m L/hr Rate/Dose Verify 11/03/2023 8:00 AM EDT 0.5 mg/min 16.7 mL /hr AMIOdarone (Nexterone) 1.8 mg/mL infusion 1 dose, Starting on Mon11/02/23 at 1301, Until Mon11/02/23 at 1400, Devin Franks: cabinet override AMIOdarone (Pacerone) tablet 200 mg 200 mg, Oral, DAILY, First dose on Mon11/03/23 at 0900, Until Discontinued, Routine Given 11/10/2023 9:10 AM EDT 200 mg Given 11/09/2023 9:11 AM EDT 200 mg Given 11/08/2023 8:39 AM EDT 200 mg AMIOdarone (Pacerone) tablet 200 mg 200 mg, Oral, 2 TIMES DAILY, First dose (after last modification) on Mon11/10/23 at 2100, Until Discontinued, Routine Given 11/18/2023 8:40 AM EDT 200 mg Given 11/17/2023 8:44 PM EDT 200 mg Given 11/17/2023 8:09 AM EDT 200 mg AMIOdarone (Pacerone) tablet 200 mg 200 mg, Oral, DAILY, First dose (after last modification) on Mon11/18/23 at 2000, Until Discontinued, Routine apixaban (Eliquis) tablet 2.5 mg 2.5 mg, Oral, 2 TIMES DAILY, First dose on Mon11/14/23 at 2100, Until Discontinued, Anticoagulant, Routine, apixaban (Eliquis) Indication: DVT or PE, Chronic/Long-term (Secondary Prevention) Given 11/18/2023 8:40 AM EDT 2.5 mg Given 11/17/2023 8:45 PM EDT 2.5 mg Given 11/17/2023 8:10 AM EDT 2.5 mg aspirin chewable tablet 81 mg 81 mg, Oral, DAILY, First dose on Mon10/31/23 at 0900, Until Discontinued, Start on Post-Op Day 1 in the AM, If unable to take PO, may give PA, Routine Given 11/03/2023 8:38 AM EDT 81 mg Given 11/02/2023 9:04 AM EDT 81 mg Given 11/01/2023 8:36 AM EDT 81 mg aspirin chewable tablet 81 mg 81 mg, Per NG tube, DAILY, First dose on Mon11/04/23 at 0900, Until Discontinued, Give PA if unable to PO, Routine Given 11/16/2023 9:59 AM EDT 81 mg Given 11/15/2023 8:11 AM EDT 81 mg Given 11/14/2023 8:22 AM EDT 81 mg aspirin chewable tablet 81 mg 81 mg, Oral, DAILY, First dose (after last modification) on Mon11/17/23 at 0900, Until Discontinued, Routine Given 11/18/2023 8:40 AM EDT 81 mg Given 11/17/2023 8:10 AM EDT 81 mg atorvastatin (Lipitor) tablet 40 mg 40 mg, Oral, EVERY EVENING, First dose (after last modification) on Mon11/08/23 at 1700, Until Discontinued, Routine Given 11/17/2023 5:10 PM EDT 40 mg Given 11/16/2023 5:15 PM EDT 40 mg Given 11/15/2023 5:28 PM EDT 40 mg atorvastatin (Lipitor) tablet 80 mg 80 mg, Oral, EVERY EVENING, First dose on Mon10/31/23 at 1700, Until Discontinued, Routine Given 11/07/2023 5:00 PM EDT 80 mg Given 11/06/2023 4:26 PM EDT 80 mg Given 11/05/2023 6:03 PM EDT 80 mg bicarbonate CRRT (NxSTAGE) 4 mEq/L K+, 3 mEq/L Ca++, 5,000 mL Solution 5 each 5 each, CRRT, at 3,000 mL/hr, CONTINUOUS, Starting on Mon11/05/23 at 1000, Until Mon11/08/23 at 0911 New Bag 11/08/2023 5:37 AM EDT 5 each 3000 mL/hr New Bag 11/07/2023 8:22 PM EDT 5 each 3000 mL/hr New Bag 11/07/2023 12:02 PM EDT 5 each 3000 mL/hr bicarbonate CRRT (NxSTAGE) 4 mEq/L K+, 3 mEq/L Ca++, 5,000 mL Solution 5 each 5 each, CRRT, at 4,000 mL/hr, CONTINUOUS, Starting on Mon11/08/23 at 0930, Until 11/13/23 at 0840 New Bag 11/13/2023 6:23 AM EDT 5 each 4000 mL/hr New Bag 11/12/2023 11:11 PM EDT 5 each 4000 mL/hr New Bag 11/12/2023 5:00 AM EDT 5 each 4000 mL/hr bisacodyL (Dulcolax) suppository 10 mg 10 mg, Rectal, DAILY PRN, Starting on Polina 11/02/23 at 0000, Until 11/18/23 at 1631, Constipation, Starting post-op day 3., Routine Given 11/03/2023 8:30 AM EDT 10 mg bisacodyL (Dulcolax) suppository 10 mg 10 mg, Rectal, ONCE, 1 dose, On 11/06/23 at 0830, Routine Given 11/06/2023 8:33 AM EDT 10 mg calcium acetate(phosphat bind) (Phoslo) capsule 1,334 mg 1,334 mg, Oral, 3 TIMES DAILY WITH MEALS, First dose on 11/04/23 at 0845, Until Discontinued, Routine Given 11/04/2023 9:24 AM EDT 1,334 mg calcium gluconate 15 g in sodium chloride 0.9% 250 mL infusion 5 mL/hr, Intravenous, CONTINUOUS, Starting on Mon11/05/23 at 1030, Until Mon11/15/23 at 0908, Infuse via Central Line Only Start calcium gluconate at 5 mL/hr when ionized calcium falls below 1.11 mMol/Liter Adjust IV infusion rate as directed by Ionized Calcium (WBICA) results: WBICA 1.21 - 1.3 mMol/Liter = Reduce by 5 mL/hour; WBICA 1.11 - 1.2 mMol/Liter = No change; WBICA 1.01 - 1.1 mMol/Liter = Increase by 5 mL/hour; WBICA 0.9 - 1 mMol/Liter = Increase by 10 mL/hour; When CRRT is paused or discontinued MUST STOP Calcium and Phosphate solutions. Obtain calcium level 2 hours after a change in in calcium infusion. , Routine New Bag 11/05/2023 12:41 PM EDT 5 mL/hr 5 mL/hr calcium gluconate 1g in sodium chloride 0.9% 50mL 1 g, Intravenous, ONCE, 1 dose, On Mon10/30/23 at 1715, Administer over 6 Minutes, Warning Vesicant/Irritant Medication Patient must be on bus driver/monitor when receiving calcium; calcium can exacerbate digoxin toxicity. Since the effect of calcium is transient, patients with hyperkalemia also require treatments to shift potassium into cells and increase potassium excretion. Infusion over 6 minutes - Bedside monitor required. New Bag 10/30/2023 5:24 PM EDT 1 g 500 mL/hr calcium gluconate 1g in sodium chloride 0.9% 50mL 1 g, Intravenous, ONCE, 1 dose, On Mon10/30/23 at 2345, Administer over 60 Minutes, Warning Vesicant/Irritant Medication New Bag 10/30/2023 11:38 PM EDT 1 g 50 mL/hr calcium gluconate 1g in sodium chloride 0.9% 50mL 1 g, Intravenous, ONCE, 1 dose, On Mon11/03/23 at 1945, Administer over 60 Minutes, Warning Vesicant/Irritant Medication New Bag 11/03/2023 8:14 PM EDT 1 g 50 mL/hr calcium gluconate 1g in sodium chloride 0.9% 50mL 1 g, Intravenous, ONCE, 1 dose, On Mon11/04/23 at 1045, Administer over 60 Minutes, Warning Vesicant/Irritant Medication New Bag 11/04/2023 11:22 AM EDT 1 g 50 mL/hr calcium gluconate 1g in sodium chloride 0.9% 50mL 1 g, Intravenous, ONCE, 1 dose, On Mon11/04/23 at 1700, Administer over 60 Minutes, Warning Vesicant/Irritant Medication New Bag 11/04/2023 5:10 PM EDT 1 g 50 mL/hr calcium gluconate 1g in sodium chloride 0.9% 50mL 1 g, Intravenous, ONCE, 1 dose, On Mon11/05/23 at 0730, Administer over 60 Minutes, Warning Vesicant/Irritant Medication New Bag 11/05/2023 7:41 AM EDT 1 g 50 mL/hr calcium gluconate 1g in sodium chloride 0.9% 50mL 1 g, Intravenous, ONCE, 1 dose, On Tu11/07/23 at 0815, Administer over 60 Minutes, Warning Vesicant/Irritant Medication New Bag 11/07/2023 9:14 AM EDT 1 g 50 mL/hr carvediloL (Coreg) tablet 12.5 mg 12.5 mg, Oral, 2 TIMES DAILY WITH MEALS, First dose on Mon11/15/23 at 1700, Until Discontinued, Routine Given 11/15/2023 5:28 PM EDT 12.5 mg carvediloL (Coreg) tablet 18.75 mg 18.75 mg, Oral, 2 TIMES DAILY WITH MEALS, First dose (after last modification) on Mon11/16/23 at 0845, Until Discontinued, Routine Given 11/17/2023 8:10 AM EDT 18.75 mg Given 11/16/2023 5:14 PM EDT 18.75 mg Given 11/16/2023 10:01 AM EDT 18.75 mg carvediloL (Coreg) tablet 25 mg 25 mg, Oral, 2 TIMES DAILY WITH MEALS, First dose (after last modification) on Mon11/17/23 at 1700, Until Discontinued, Routine Given 11/18/2023 8:40 AM EDT 25 mg Given 11/17/2023 5:10 PM EDT 25 mg carvediloL (Coreg) tablet 6.25 mg 6.25 mg, Oral, ONCE, 1 dose, On Mon11/17/23 at 0915, Routine Given 11/17/2023 9:15 AM EDT 6.25 mg ceFAZolin (Ancef) 1 g vial attached to sodium chloride 0.9% 50 mL Mini-Bag Plus 1 g, Intravenous, EVERY 12 HOURS, First dose on Polina 11/02/23 at 1345, Until Discontinued, Administer over 30 Minutes, Renally dose adjusted, Indication for (Active or Suspected): Pneumonia (Community) New Bag 11/02/2023 2:20 PM EDT 1 g 100 mL/hr chlorhexidine (Peridex) 0.12 % solution Q-Care Kit 15 mL, Oral, 2 TIMES DAILY, First dose on Mon10/30/23 at 1330, Until Discontinued, Marshall teeth and / or gums. Scan the CHG vial in the [employer] Q-Care Oral Care Kit from floor stock. Ventilator-associated pneumonia prophylaxis For use in ICU/Critical care locations ONLY. Obtain kit from Floor Stock location. Scan CHG vial in the [employer] Q-Care Oral Care Kit, Routine Given 11/11/2023 8:30 PM EDT 15 mLs Given 11/10/2023 8:12 PM EDT 15 mLs Given 11/09/2023 8:30 PM EDT 15 mLs chlorothiazide (Diuril) 500 mg in dextrose 5% 68 mL infusion 500 mg, Intravenous, at 136 mL/hr, Administer over 30 Minutes, ONCE, 1 dose, On Mon11/03/23 at 0930, Routine New Bag 11/03/2023 10:23 AM EDT 500 mg 136 mL/hr chlorothiazide (Diuril) 500 mg in dextrose 5% 68 mL infusion 500 mg, Intravenous, at 136 mL/hr, Administer over 30 Minutes, ONCE, 1 dose, On Mon11/05/23 at 2000, Routine New Bag 11/05/2023 7:44 PM EDT 500 mg 136 mL/hr chlorothiazide (Diuril) 500 mg in dextrose 5% 68 mL infusion 500 mg, Intravenous, at 136 mL/hr, Administer over 30 Minutes, ONCE, 1 dose, On Mon11/06/23 at 1415, Routine New Bag 11/06/2023 2:26 PM EDT 500 mg 136 mL/hr citalopram (CeleXA) tablet 10 mg 10 mg, Oral, DAILY, First dose on Mon11/15/23 at 2000, Until Discontinued, Routine Given 11/18/2023 8:40 AM EDT 10 mg Given 11/17/2023 8:10 AM EDT 10 mg Given 11/16/2023 10:04 AM EDT 10 mg clopidogreL (Plavix) tablet 75 mg 75 mg, Oral, DAILY, First dose on Mon10/31/23 at 0900, Until Discontinued, Routine Given 11/18/2023 8:40 AM EDT 75 mg Given 11/17/2023 8:10 AM EDT 75 mg Given 11/16/2023 10:00 AM EDT 75 mg dexmedeTOMIDine (Precedex) (4 mcg/mL) in sodium chloride 0.9% 100 mL infusion 0-1.7 mcg/kg/hr ? 94.3 kg Adjusted weight (0-40.0775 mL/hr, rounded to 0-40.1 mL/hr), Intravenous, CONTINUOUS, Starting on Mon11/01/23 at 0815, Until 11/04/23 at 0636, Titrate to sedation level of RASS Goal (-)1 to 0. Start at 0.4 mcg/kg/hr. Increase/decrease by 0.4 mcg/kg/hr every 15 minutes until goal reached. Once stable, reassess patient every 30 minutes. Do not exceed 1.7 mcg/kg/hr. Change rate only after assessing and documenting RASS. Reassess sedation scores within 30 minutes after every rate change. If under sedated, increase rate by 0.4 mcg/kg/hr. If over sedated, hold sedative until target RASS (-)1 to 0 achieved and then restart at 50% of previous rate. Call housekeeper/laundry assistant if goal not achieved at maximum rate. If SAT is ordered, and if patient meets criteria for Spontaneous Awakening Trial, titrate per protocol., Routine, Please indicate the name & specialty of the Attending Provider who authorized the use of this medication: Rassias Rate/Dose Verify 11/01/2023 10:00 PM EDT 0.4 mcg/kg/hr 9.4 mL/hr Rate/Dose Change 11/01/2023 8:00 PM EDT 0.4 mcg/kg/hr 9.4 mL/hr New Bag 11/01/2023 2:36 PM EDT 0.4 mcg/kg/hr 9.4 mL/hr dexmedeTOMIDine (Precedex) (4 mcg/mL) in sodium chloride 0.9% 100 mL infusion 0-1.7 mcg/kg/hr ? 97.6 kg Adjusted weight (0-41.48 mL/hr, rounded to 0-41.5 mL/hr), Intravenous, CONTINUOUS, Starting on 11/04/23 at 0900, Until Mon11/07/23 at 1027, Titrate to sedation level of RASS Goal (-)1 to 0. Start at 0.4 mcg/kg/hr. Increase/decrease by 0.4 mcg/kg/hr every 15 minutes until goal reached. Once stable, reassess patient every 30 minutes. Do not exceed 1.7 mcg/kg/hr. Change rate only after assessing and documenting RASS. Reassess sedation scores within 30 minutes after every rate change. If under sedated, increase rate by 0.4 mcg/kg/hr. If over sedated, hold sedative until target RASS (-)1 to 0 achieved and then restart at 50% of previous rate. Call housekeeper/laundry assistant if goal not achieved at maximum rate. If SAT is ordered, and if patient meets criteria for Spontaneous Awakening Trial, titrate per protocol., Routine, Please indicate the name & specialty of the Attending Provider who authorized the use of this medication: rassias Rate/Dose Verify 11/07/2023 10:00 AM EDT 1.7 mcg/kg/hr 41.5 mL/hr Rate/Dose Verify 11/07/2023 9:00 AM EDT 1.7 mcg/kg/hr 41.5 mL/hr New Bag 11/07/2023 8:43 AM EDT 1.7 mcg/kg/hr 41.5 mL/hr dexmedeTOMIDine (Precedex) (4 mcg/mL) in sodium chloride 0.9% 100 mL infusion 0-1.7 mcg/kg/hr ? 115 kg Order-specific weight (0-48.875 mL/hr, rounded to 0-48.9 mL/hr), Intravenous, CONTINUOUS, Starting on Mon11/07/23 at 1045, Until Mon11/13/23 at 0942, Titrate to sedation level of RASS Goal (-)1 to 0. Start at 0.4 mcg/kg/hr. Increase/decrease by 0.4 mcg/kg/hr every 15 minutes until goal reached. Once stable, reassess patient every 30 minutes. Do not exceed 1.7 mcg/kg/hr. Change rate only after assessing and documenting RASS. Reassess sedation scores within 30 minutes after every rate change. If under sedated, increase rate by 0.4 mcg/kg/hr. If over sedated, hold sedative until target RASS (-)1 to 0 achieved and then restart at 50% of previous rate. Call housekeeper/laundry assistant if goal not achieved at maximum rate. If SAT is ordered, and if patient meets criteria for Spontaneous Awakening Trial, titrate per protocol., Routine, Please indicate the name & specialty of the Attending Provider who authorized the use of this medication: rassias Rate/Dose Verify 11/13/2023 6:00 AM EDT 0.4 mcg/kg/hr 11.5 mL/hr Rate/Dose Verify 11/13/2023 5:00 AM EDT 0.4 mcg/kg/hr 11.5 mL/hr Rate/Dose Change 11/13/2023 4:15 AM EDT 0.4 mcg/kg/hr 11.5 mL/hr dextrose 10 % 250 mL IV bolus at 1,000 mL/hr, Intravenous, ONCE, 1 dose, On Mon11/01/23 at 0100, Give 250 mL of dextrose 10% intravenously, immediately followed by regular insulin 5 units intravenously. Rate/Dose Verify 11/01/2023 1:00 AM EDT 1000 m L/hr New Bag 11/01/2023 12:46 AM EDT 1000 mL/hr dextrose 10% infusion 250 mL, at 1,000 mL/hr, Intravenous, EVERY 15 MIN PRN, Starting on 11/06/23 at 0914, Until 11/18/23 at 1631, For BG 50-70 mg/dL: Oral treatment preferred: [...] administering the next dose. diphenhydrAMINE (Benadryl) capsule 25 mg 25 mg, Oral, ONCE, 1 dose, On Mon11/13/23 at 2245, Routine Given 11/13/2023 10:45 PM EDT 25 mg DOPamine (Intropin) (1,600 mcg/mL) in dextrose 5% 250 mL infusion 2 mcg/kg/min ? 134.1 kg (10.0575 mL/hr, rounded to 10.1 mL/hr), Intravenous, CONTINUOUS, Starting on Mon11/06/23 at 0800, Until Mon11/09/23 at 0759, Warning Vesicant/Irritant Medication Standard Concentration - 1,600 mcg/mL Rate/Dose Verify 11/09/2023 7:00 AM EDT 2 mcg/kg/min 10.1 mL/hr Rate/Dose Verify 11/09/2023 6:00 AM EDT 2 mcg/kg/min 10.1 mL/hr Rate/Dose Verify 11/09/2023 5:00 AM EDT 2 mcg/kg/min 10.1 mL/hr EPINEPHrine (Adrenalin) (8 mcg/mL) in dextrose 5% 250 mL infusion 2-10 mcg/min (15-75 mL/hr), Intravenous, CONTINUOUS, Starting on Mon10/30/23 at 1330, Until Mon11/03/23 at 1650, Use if PHENYLephrine or vasopressin or NORepinephrine is ineffective. Call pager # [phone] if initiated. Titrate to keep mean blood pressure greater than 65 mmHg. Start at 2 mcg/min. Increase/decrease by 1 mcg/min every 3 minutes until goal reached. Do not exceed 10 mcg/min. Do NOT go below 2 mcg/min overnight. Warning Vesicant/Irritant Medication Concentration: 8 mcg/mL. Warning Vesicant/Irritant Medication Rate/Dose Verify 11/01/2023 4:00 PM EDT 2 mcg/min 15 mL/hr Rate/Dose Verify 11/01/2023 2:00 PM EDT 2 mcg/min 15 mL/h r Rate/Dose Verify 11/01/2023 12:00 PM EDT 2 mcg/min 15 mL/ hr EPINEPHrine (Adrenalin) (8 mcg/mL) in dextrose 5% 250 mL infusion 0-10 mcg/min (0-75 mL/hr), Intravenous, CONTINUOUS, Starting on Mon11/05/23 at 1530, Until Mon11/06/23 at 0740, Titrate to keep cardiac index greater than 2 L/min/m2 and MAP greater than 65 mmHg. Start at 1 mcg/min. Increase/decrease by 1 mcg/min every 3 minutes until goal reached. Do not exceed 10 mcg/min. Warning Vesicant/Irritant Medication Concentration: 8 mcg/mL. Warning Vesicant/Irritant Medication Rate/Dose Verify 11/06/2023 6:00 AM EDT 2 mcg/min 15 mL/hr Rate/Dose Verify 11/06/2023 4:00 AM EDT 2 mcg/min 15 mL/h r Rate/Dose Verify 11/06/2023 2:00 AM EDT 2 mcg/min 15 mL/h r epoetin sha-epbx (Retacrit) injection 10,000 Units 10,000 Units, Subcutaneous, THREE TIMES WEEKLY (Mon, , Mon) (Once per day on Monday), First dose on 11/04/23 at 1145, Until Discontinued, Routine, What is the indication of use? Chronic Kidney Disease (CKD) Given 11/17/2023 9:15 AM EDT 10,000 Units Given 11/15/2023 8:13 AM EDT 10,000 Units Given 11/13/2023 10:33 AM EDT 10,000 Units ergocalciferoL (vitamin D2) (8,000 units/mL) oral liquid 50,000 Units 50,000 Units, Per NG tube, WEEKLY, First dose on 11/04/23 at 2300, Until Discontinued, Routine Given 11/11/2023 8:47 AM EDT 50,000 Units Given 11/04/2023 10:39 PM EDT 50,000 Units ergocalciferoL (vitamin D2) (8,000 units/mL) oral liquid 50,000 Units 50,000 Units, Oral, WEEKLY, First dose (after last modification) on 11/18/23 at 0900, Until Discontinued, Routine Given 11/18/2023 8:55 AM EDT 50,000 Units fentaNYL (50 mcg/mL) bolus from infusion 25 mcg 25 mcg, Intravenous, EVERY 10 MIN PRN, Starting on Mon10/30/23 at 1302, Until [place] 11/12/23 at 0808, Pain, For breakthrough pain (pain scale greater than 3), while intubated, For breakthrough pain (pain scale greater than 3), while intubated. Maximum dose 300 mcg over one hour, Routine Bolus from Infusion 11/10/2023 6:39 AM EDT 25 mcg Bolus from Infusion 11/09/2023 6:37 AM EDT 25 mcg Bolus from Infusion 11/09/2023 6:16 AM EDT 25 mcg fentaNYL (50 mcg/mL) bolus from infusion 25 mcg 25 mcg, Intravenous, EVERY 1 HOUR PRN, Starting on Mon10/30/23 at 1302, Until [place] 11/12/23 at 0808, Pain, For breakthrough pain (pain scale greater than 3), while extubated, For breakthrough pain (pain scale greater than 3), while extubated. Maximum dose 300 mcg over one hour, Routine Bolus from Infusion 11/08/2023 8:01 PM EDT 25 mcg fentaNYL (PF) (50 mcg/mL) infusion syringe 50 mL 0-100 mcg/hr (0-2 mL/hr), Intravenous, CONTINUOUS, Starting on Mon10/30/23 at 1330, Until [place] 11/12/23 at 0808, Titrate to patient comfort, pain scale 1-3. Start at 25 mcg/hr. Increase/decrease by 25 mcg/hr every 15 minutes. Do not exceed 100 mcg/hour., Routine Rate/Dose Change 11/10/2023 8:26 AM EDT 25 mcg/hr 0.5 mL/hr Rate/Dose Verify 11/10/2023 8:00 AM EDT 50 mcg/hr 1 mL/hr Rate/Dose Verify 11/10/2023 7:00 AM EDT 50 mcg/hr 1 mL/hr ferrous sulfate (60 mg/mL) oral liquid 300 mg 300 mg, Oral, DAILY, First dose on Mon11/04/23 at 1430, Until Discontinued, Each mL contains 12 mg of elemental iron, Routine Given 11/13/2023 8:48 AM EDT 30 0 mg Given 11/12/2023 8:56 AM EDT 300 mg Given 11/11/2023 8:48 AM EDT 300 mg ferrous sulfate EC (FeroSul) tablet 325 mg 325 mg, Oral, DAILY WITH BREAKFAST, First dose on Mon11/14/23 at 0900, Until Discontinued, DO NOT CRUSH OR OPEN. Take with food or water., Routine Given 11/18/2023 8:40 AM EDT 325 mg Given 11/17/2023 8:10 AM EDT 325 mg Given 11/16/2023 10:01 AM EDT 325 mg furosemide (Lasix) (1 mg/mL) infusion 100 mg vial attached to sodium chloride 0.9% 100 mL Mini-Bag Plus 20 mg/hr (20 mL/hr), Intravenous, CONTINUOUS, Starting on Mon10/31/23 at 1300, Until Mon11/01/23 at 0955, Routine Rate/Dose Verify 11/01/2023 8:00 AM EDT 20 mg/hr 20 mL/hr Rate/Dose Change 11/01/2023 7:52 AM EDT 20 mg/hr 20 mL/h r Rate/Dose Change 11/01/2023 7:50 AM EDT 20 mg/hr 20 mL/h r furosemide (Lasix) (1 mg/mL) infusion 100 mg vial attached to sodium chloride 0.9% 100 mL Mini-Bag Plus 20 mg/hr (20 mL/hr), Intravenous, CONTINUOUS, Starting on Mon11/05/23 at 1530, Until Mon11/12/23 at 0808, Routine Rate/Dose Verify 11/07/2023 9:00 AM EDT 20 mg/hr 20 mL/hr Rate/Dose Verify 11/07/2023 8:00 AM EDT 20 mg/hr 20 mL/h r Rate/Dose Verify 11/07/2023 7:00 AM EDT 20 mg/hr 20 mL/h r furosemide (Lasix) (10 mg/mL) 70 mL continuous infusion (High Concentration) 20 mg/hr (2 mL/hr), Intravenous, CONTINUOUS, Starting on Mon11/01/23 at 1015, Until Mon11/05/23 at 1232, Routine Rate/Dose Verify 11/05/2023 10:00 AM EDT 20 mg/hr 2 mL/hr Rate/Dose Verify 11/05/2023 8:00 AM EDT 20 mg/hr 2 mL/hr Rate/Dose Verify 11/05/2023 6:00 AM EDT 20 mg/hr 2 mL/hr furosemide (Lasix) (10 mg/mL) injection 120 mg 120 mg, Intravenous, ONCE, 1 dose, On Mon11/06/23 at 1415 Given 11/06/2023 3:15 PM EDT 120 mg furosemide (Lasix) (10 mg/mL) injection 40 mg 40 mg, Intravenous, ONCE, 1 dose, On Mon10/31/23 at 0800 Given 10/31/2023 8:07 AM EDT 40 mg furosemide (Lasix) (10 mg/mL) injection 40 mg 40 mg, Intravenous, ONCE, 1 dose, On Mon10/31/23 at 0845 Given 10/31/2023 8:29 AM EDT 40 mg furosemide (Lasix) (10 mg/mL) injection 40 mg 40 mg, Intravenous, ONCE, 1 dose, On Mon11/13/23 at 0830 Given 11/13/2023 8:41 AM EDT 40 mg furosemide (Lasix) (10 mg/mL) injection 60 mg 60 mg, Intravenous, ONCE, 1 dose, On Mon11/13/23 at 1400 Given 11/13/2023 1:40 PM EDT 60 mg furosemide (Lasix) (10 mg/mL) injection 60 mg 60 mg, Intravenous, ONCE, 1 dose, On Mon11/14/23 at 0915 Given 11/14/2023 9:29 AM EDT 60 mg furosemide (Lasix) (10 mg/mL) injection 60 mg 60 mg, Intravenous, ONCE, 1 dose, On Mon11/14/23 at 1300 Given 11/14/2023 1:14 PM EDT 60 mg furosemide (Lasix) (10 mg/mL) injection 60 mg 60 mg, Intravenous, ONCE, 1 dose, On Mon11/14/23 at 1800 Given 11/14/2023 5:15 PM EDT 60 mg furosemide (Lasix) (10 mg/mL) injection 60 mg 60 mg, Intravenous, ONCE, 1 dose, On Mon11/15/23 at 1600 Given 11/15/2023 3:57 PM EDT 60 mg furosemide (Lasix) (10 mg/mL) injection 60 mg 60 mg, Intravenous, ONCE, 1 dose, On Mon11/15/23 at 2000 Given 11/15/2023 8:04 PM EDT 60 mg furosemide (Lasix) (10 mg/mL) injection 80 mg 80 mg, Intravenous, ONCE, 1 dose, On Mon11/15/23 at 0845 Given 11/15/2023 8:28 AM EDT 80 mg furosemide (Lasix) 10 mg/mL injection 1 dose, Starting on Mon10/31/23 at 0821, Until Mon10/31/23 at 0829, JAMIE CARRIZALES: cabinet override glucagon (Glucagen) (1 mg/mL) injection solution 1 mg 1 mg, Intramuscular, EVERY 15 MIN PRN, Starting on Mon11/06/23 at 0914, Until 11/18/23 at 1631, Low blood sugar, For BG 50-70 mg/dL: [...] Buccal, EVERY 15 MIN PRN, Starting on 11/06/23 at 0914, Until 11/18/23 at 1631, Low blood sugar, For BG 50-70 mg/dL: [...] units/mL) injection 1,000-10,000 Units 1,000-10,000 Units, Intercatheter, EVERY 6 HOURS PRN, Starting on 11/05/23 at 0935, Until 11/15/23 at 0908, Line Care, Per Protocol, dialysis, Catheter lock use catheter specified fill volume per dialysis protocol. For use in Dialysis only. Procedure ID: 660 (Hemodialysis CVAD Procedure - Care and Maintenance) in Clinical Policies., Routine Given 11/13/2023 5:38 PM EDT 2,400 Units heparin (porcine) (5,000 units/1 mL) subcutaneous injection 7,500 Units 7,500 Units, Subcutaneous, EVERY 12 HOURS SCHEDULED (2 times per day), First dose on [place] 11/02/23 at 0900, Until Discontinued, Routine Given 11/09/2023 8:31 PM EDT 7,500 Units Given 11/09/2023 9:11 AM EDT 7,500 Units Given 11/08/2023 8:22 PM EDT 7,500 Units heparin (porcine) 50 units/mL in dextrose 5% 500 mL infusion 0-5,000 Units/hr (0-100 mL/hr), Intravenous, CONTINUOUS, Starting on Mon11/10/23 at 1030, Until Mon11/13/23 at 0942, Begin infusion at 1,300 units per hr (10 units/kg/hr). Maximum initial infusion rate is 2,000 units/hr. Infusion doses are rounded to the nearest 50 units. Target Heparin UFH Level (anti-Xa activity) = 0.1 - 0.3 international unit/mL Start adjustment schedule 6 hours after starting infusion. If Heparin UFH Level is: - Less than 0.1 international unit/mL: NO BOLUS and iIncrease rate by 250 units per hr (2 units/kg/hr) - 0.1 - 0.3 international unit/mL: No change - 0.31 - 0.4 international unit/mL: Decrease rate by 150 units per hr (1 units/kg/hr) - 0.41 - 0.6 international unit/mL: Decrease rate by 250 units per hr (2 units/kg/hr) - 0.61 - 0.8 international unit/mL: Hold Infusion for 60 minutes then decrease rate by 400 units per hour (3 units/kg/hr) - Greater than 0.8 international unit/mL: Hold infusion for 60 minutes then decrease rate by 500 units per hr (4 units/kg/hr) Obtain Heparin UFH Level 6 hours after initiating heparin. Then 6 hours after each dose adjustment. When 2 consecutive Heparin UFH Level within target range of 0.1 - 0.3 international unit/mL, change Heparin UFH Level to once every 24 hours with A.M. labs while on heparin. RN to order required Heparin UFH Level - Per Protocol, Routine Rate/Dose Verify 11/13/2023 8:00 AM EDT 1,000 Units/hr 20 mL/hr Rate/Dose Verify 11/13/2023 7:00 AM EDT 1,000 Units/hr 20 mL/hr Rate/Dose Verify 11/13/2023 6:00 AM EDT 1,000 Units/hr 20 mL/hr hydrALAZINE (Apresoline) (20 mg/mL) injection 10 mg 10 mg, Intravenous, EVERY 4 HOURS PRN, Starting on 11/04/23 at 2019, Until 11/18/23 at 1631, High Blood Pressure, give for SBP >150 Given 11/17/2023 4:15 AM EDT 10 mg Given 11/16/2023 4:36 AM EDT 10 mg Given 11/15/2023 4:21 PM EDT 10 mg HYDROmorphone (Dilaudid) (0.5 mg/0.5 mL) injection syringe 0.4 mg 0.4 mg, Intravenous, EVERY 4 HOURS PRN, Starting on 10/30/23 at 1626, Until 11/15/23 at 0906, Pain, While unable to take PO only, Routine Given 11/10/2023 6:49 AM EDT 0.4 mg Given 11/10/2023 1:10 AM EDT 0.4 mg Given 11/09/2023 7:19 PM EDT 0.4 mg HYDROmorphone (Dilaudid) tablet 2 mg 2 mg, Oral, EVERY 4 HOURS PRN, Starting on 10/30/23 at 1302, Until 11/18/23 at 1631, Pain, moderate pain (4-6), For adults, may give in place of other agent(s) ordered for pain (7-10) at patient request. If multiple routes of administration ordered, oral route first line., Routine Given 11/13/2023 9:03 PM EDT 2 mg Given 11/05/2023 8:47 AM EDT 2 mg HYDROmorphone (Dilaudid) tablet 2 mg 2 mg, Oral, EVERY 4 HOURS PRN, Starting on Mon10/30/23 at 1302, Until 11/18/23 at 1631, Pain, Breakthrough pain rescue dose, For moderate or severe pain (4-10) unrelieved at least 60 minutes after initial PRN dose was administered. Max 3 doses/24 hours. If pain still unrelieved after 3rd rescue dose within 24 hours, contact provider. If multiple routes of administration ordered, oral route first line., Routine Given 11/12/2023 8:56 AM EDT 2 mg Given 11/08/2023 8:22 PM EDT 2 mg HYDROmorphone (Dilaudid) tablet 4 mg 4 mg, Oral, EVERY 4 HOURS PRN, Starting on Mon10/30/23 at 1302, Until 11/18/23 at 1631, Pain, severe pain (7-10), If multiple routes of administration ordered, oral route first line., Routine Given 11/13/2023 9:34 AM EDT 4 mg Given 11/13/2023 3:57 AM EDT 4 mg Given 11/13/2023 12:41 AM EDT 4 mg insulin glargine-ygfn (Semglee) (100 unit/mL) subcutaneous injection vial 4 Units 4 Units, Subcutaneous, ONCE, 1 dose, On Mon11/15/23 at 1430, Routine Given 11/15/2023 3:02 PM EDT 4 Units insulin glargine-ygfn (Semglee) (100 unit/mL) subcutaneous injection vial 40 Units 40 Units, Subcutaneous, EVERY 24 HOURS, First dose (after last modification) on Mon11/12/23 at 1800, Until Discontinued, Routine Given 11/14/2023 6:00 PM EDT 40 Units Given 11/13/2023 5:38 PM EDT 40 Units Given 11/12/2023 6:00 PM EDT 40 Units insulin glargine-ygfn (Semglee) (100 unit/mL) subcutaneous injection vial 44 Units 44 Units, Subcutaneous, EVERY 24 HOURS, First dose (after last modification) on Mon11/15/23 at 1800, Until Discontinued, Routine Given 11/15/2023 5:30 PM EDT 44 Units insulin glargine-ygfn (Semglee) (100 unit/mL) subcutaneous injection vial 48 Units 48 Units, Subcutaneous, EVERY 24 HOURS, First dose (after last modification) on Mon11/16/23 at 1800, Until Discontinued, Routine Given 11/17/2023 5:10 PM EDT 48 Units Given 11/16/2023 5:30 PM EDT 48 Units insulin glargine-ygfn (Semglee) (100 unit/mL) subcutaneous injection vial 50 Units 50 Units, Subcutaneous, EVERY 24 HOURS, First dose on Mon11/02/23 at 1800, Until Discontinued, Routine Given 11/11/2023 5:43 PM EDT 50 Units Given 11/10/2023 6:36 PM EDT 50 Units Given 11/09/2023 5:04 PM EDT 50 Units insulin lispro (HumaLOG;Admelog) (100 unit/mL) subcutaneous injection vial 0-10 Units 0-10 Units, Subcutaneous, 3 TIMES DAILY WITH MEALS, First dose (after last modification) on Mon11/14/23 at 1700, Until Discontinued, MEAL ASSOCIATED Give 1 unit for every 8 grams carbohydrate. Hold if not eating or if BG less than 70 mg/dL. , Routine Given 11/15/2023 12:58 PM EDT 4 Units Given 11/15/2023 8:40 AM EDT 4 Units Given 11/14/2023 6:00 PM EDT 5 Units insulin lispro (HumaLOG;Admelog) (100 unit/mL) subcutaneous injection vial 0-11 Units 0-11 Units, Subcutaneous, 3 TIMES DAILY WITH MEALS, First dose (after last modification) on Mon11/15/23 at 1700, Until Discontinued, MEAL ASSOCIATED Give 1 unit for every 7 grams carbohydrate. Hold if not eating or if BG less than 70 mg/dL. , Routine Given 11/15/2023 5:31 PM EDT 6 Units insulin lispro (HumaLOG;Admelog) (100 unit/mL) subcutaneous injection vial 0-15 Units 0-15 Units, Subcutaneous, 3 TIMES DAILY WITH MEALS, First dose (after last modification) on Mon11/16/23 at 1230, Until Discontinued, MEAL ASSOCIATED Give 1 unit for every 5 grams carbohydrate. Hold if not eating or if BG less than 70 mg/dL. , Routine Given 11/18/2023 8:41 AM EDT 5 Units Given 11/17/2023 5:10 PM EDT 5 Units Given 11/17/2023 12:25 PM EDT 3 Units insulin lispro (HumaLOG;Admelog) (100 unit/mL) subcutaneous injection vial 0-8 Units 0-8 Units, Subcutaneous, 3 TIMES DAILY WITH MEALS, First dose on Mon11/12/23 at 1330, Until Discontinued, MEAL ASSOCIATED Give 1 unit for every 10 grams carbohydrate. Hold if not eating or if BG less than 70 mg/dL. , Routine Given 11/14/2023 12:07 PM EDT 3 Units Given 11/14/2023 8:30 AM EDT 3 Units Given 11/13/2023 12:17 PM EDT 1 Units insulin lispro (HumaLOG;Admelog) (100 unit/mL) subcutaneous injection vial 1-11 Units 1-11 Units, Subcutaneous, EVERY 4 HOURS SCHEDULED, First dose on Mon11/06/23 at 0945, Until Discontinued, CORRECTION BOLUS [1-11 Units] Custom Sliding Scale (BG in mg/dL): Correction factor 15 (1 unit of insulin is expected to drop the glucose 15mg/dL) BG 140 - 155 Give 1 unit BG 156 - 170 Give 2 units BG 171 - 185 Give 3 units BG 186 - 200 Give 4 units BG 201 - 215 Give 5 units BG 216 - 230 Give 6 units BG 231 - 245 Give 7 units BG 246 - 260 Give 8 units BG 261 - 275 Give 9 units BG 276 - 290 Give 10 units BG greater than 290, give 11 units and recheck BG in 2 hours. For 2hr recheck dose: If recheck BG remains greater than 240, GIVE 4 units. If recheck BG is less than 240 after two hours, give no insulin and resume prior schedule. DO NOT hold if NPO, unless specifically directed to do so by written order. Per Blood Glucose Monitoring Policy, re-check a BG of > 240 mg/dL in 2 hours , Routine Given 11/07/2023 8:50 AM EDT 2 Units Given 11/07/2023 4:09 AM EDT 1 Units Given 11/07/2023 12:19 AM EDT 1 Units insulin lispro (HumaLOG;Admelog) (100 unit/mL) subcutaneous injection vial 1-11 Units 1-11 Units, Subcutaneous, EVERY 4 HOURS SCHEDULED, First dose on Mon11/07/23 at 1200, Until Discontinued, CORRECTION BOLUS [1-11 Units] Custom Sliding Scale (BG in mg/dL): Correction factor 15 (1 unit of insulin is expected to drop the glucose 15mg/dL) BG 140 - 155 Give 1 unit BG 156 - 170 Give 2 units BG 171 - 185 Give 3 units BG 186 - 200 Give 4 units BG 201 - 215 Give 5 units BG 216 - 230 Give 6 units BG 231 - 245 Give 7 units BG 246 - 260 Give 8 units BG 261 - 275 Give 9 units BG 276 - 290 Give 10 units BG greater than 290, give 11 units and recheck BG in 2 hours. For 2hr recheck dose: If recheck BG remains greater than 240, GIVE 4 units. If recheck BG is less than 240 after two hours, give no insulin and resume prior schedule. DO NOT hold if NPO, unless specifically directed to do so by written order. Per Blood Glucose Monitoring Policy, re-check a BG of > 240 mg/dL in 2 hours , Routine Given 11/17/2023 12:26 PM EDT 5 Units Given 11/17/2023 8:15 AM EDT 2 Units Given 11/17/2023 4:08 AM EDT 1 Units insulin lispro (HumaLOG;Admelog) (100 unit/mL) subcutaneous injection vial 1-6 Units 1-6 Units, Subcutaneous, EVERY 4 HOURS SCHEDULED, First dose on Mon11/05/23 at 1230, Until Discontinued, CORRECTION BOLUS [1-6 Units] Moderate Sliding Scale (BG in mg/dL): Correction factor 20 (1 unit of insulin is expected to drop the glucose 20 mg/dL) BG 140 - 160 Give 1 unit BG 161 - 180 Give 2 units BG 181 - 200 Give 3 units BG 201 - 220 Give 4 units BG 221 - 240 Give 5 units BG greater than 240, give 6 units and recheck BG in 2 hours. - If recheck BG is LESS than 240, give no insulin and resume schedule. - If recheck BG is GREATER than or EQUAL to 240, give 6 units and repeat BG in 2 hours (no more than 3 times) & call for new insulin orders. DO NOT hold if NPO, unless specifically directed to do so by written order. ?? Per Inpatient Subcutaneous Insulin Policy, recheck a BG of greater than 240 mg/dL in 2 hours., Routine Given 11/06/2023 8:33 AM EDT 3 Units Given 11/06/2023 4:28 AM EDT 3 Units Given 11/06/2023 12:03 AM EDT 3 Units insulin lispro (HumaLOG;Admelog) (100 unit/mL) subcutaneous injection vial 2-6 Units 2-6 Units, Subcutaneous, EVERY 4 HOURS SCHEDULED, First dose (after last modification) on Mon11/07/23 at 1200, Until Discontinued, TUBE FEED ASSOCIATED For Peptamen AF tube feed - 112 grams of carbohydrate per 1000 cc - Starting 25mL/hr, and titrating up Q6hrs by 10mL, with Goal rate 75mL/hr HOLD if tube feed not running HOLD if BG less than 80 Based on 1:6 I:C ratio TO COVER THE NEXT 4 HOURS OF TUBE FEEDS 25-34 mL/hr give 2 units every 4 hours 35-44 mL/hr give 3 units every 4 hours 45-54 mL/hr give 4 units every 4 hours 55-64 mL/hr give 5 units every 4 hours 65-75 mL/hr give 6 units every 4 hours If greater than 75 or change in tube feed call for new orders. , Routine Given 11/08/2023 7:43 AM EDT 6 Units Given 11/08/2023 4:14 AM EDT 6 Units Given 11/08/2023 12:14 AM EDT 6 Units insulin lispro (HumaLOG;Admelog) (100 unit/mL) subcutaneous injection vial 4-8 Units 4-8 Units, Subcutaneous, EVERY 4 HOURS SCHEDULED, First dose (after last modification) on Mon11/08/23 at 1200, Until Discontinued, TUBE FEED ASSOCIATED For Peptamen AF tube feed - 112 grams of carbohydrate per 1000 cc - Starting 25mL/hr, and titrating up Q6hrs by 10mL, with Goal rate 75mL/hr HOLD if tube feed not running HOLD if BG less than 80 Based on 1:4.25 I:C ratio TO COVER THE NEXT 4 HOURS OF TUBE FEEDS 25-34 mL/hr give 4 units every 4 hours 35-44 mL/hr give 5 units every 4 hours 45-54 mL/hr give 6 units every 4 hours 55-64 mL/hr give 7 units every 4 hours 65-75 mL/hr give 8 units every 4 hours If greater than 75 or change in tube feed call for new orders. , Routine Given 11/08/2023 3:58 PM EDT 8 Units Given 11/08/2023 11:09 AM EDT 8 Units insulin lispro (HumaLOG;Admelog) (100 unit/mL) subcutaneous injection vial 5 Units 5 Units, Subcutaneous, EVERY 4 HOURS SCHEDULED, First dose on Mon11/06/23 at 1600, Until Discontinued, TUBE FEED ASSOCIATED For Nepro tube feed - 160 grams of carbohydrate per 1000 cc - Goal rate 55 mL/hr HOLD if tube feed not running HOLD if BG less than 80 Based on 1:7 I:C ratio TO COVER THE NEXT 4 HOURS OF TUBE FEEDS 55mL/hr give 5 units every 4 hours If greater than 55 or change in tube feed call for new orders. , Routine Given 11/07/2023 8:50 AM EDT 5 Units Given 11/07/2023 4:09 AM EDT 5 Units Given 11/06/2023 11:05 PM EDT 5 Units insulin lispro (HumaLOG;Admelog) (100 unit/mL) subcutaneous injection vial 6-10 Units 6-10 Units, Subcutaneous, EVERY 4 HOURS SCHEDULED, First dose (after last modification) on Mon11/08/23 at 2000, Until Discontinued, TUBE FEED ASSOCIATED For Peptamen AF tube feed - 112 grams of carbohydrate per 1000 cc - Starting 25mL/hr, and titrating up Q6hrs by 10mL, with Goal rate 75mL/hr HOLD if tube feed not running HOLD if BG less than 80 Based on 1:3.5 I:C ratio TO COVER THE NEXT 4 HOURS OF TUBE FEEDS 25-34 mL/hr give 6 units every 4 hours 35-44 mL/hr give 7 units every 4 hours 45-54 mL/hr give 8 units every 4 hours 55-64 mL/hr give 9 units every 4 hours 65-75 mL/hr give 10 units every 4 hours If greater than 75 or change in tube feed call for new orders. , Routine Given 11/13/2023 4:11 AM EDT 8 Units Given 11/13/2023 12:11 AM EDT 7 Units Given 11/12/2023 8:13 PM EDT 7 Units insulin regular (HumuLIN R,NovoLIN R) (100 unit/mL) injection vial 5 Units 5 Units, Intravenous, ONCE, 1 dose, On Mon11/01/23 at 0100, Give 250 mL of dextrose 10% intravenously, immediately followed by regular insulin 5 units intravenously., Routine Given 11/01/2023 1:00 AM EDT 5 Units insulin regular (Myxredlin) (1 unit/mL) bolus from infusion 0-16 Units 0-16 Units, Intravenous, PER INSULIN PROTOCOL, Starting on 10/30/23 at 1302, Until 11/05/23 at 1201, Per Protocol, BOLUS order. Type 2 No Initial bolus. Adjustment bolus per insulin infusion protocol: IV insulin Bolus scale: For blood glucose (BG) in mg/dL (250-299 = 8 units, 300-359 = 12 units, greater than 360 = 16 units), Routine Bolus from Bag 11/01/2023 5:05 AM EDT 8 Units Bolus from Bag 10/31/2023 4:58 AM EDT 8 Units Bolus from Bag 10/31/2023 3:58 AM EDT 12 Units insulin regular (Myxredlin) (1 unit/mL) in sodium chloride 0.9% 100 mL infusion 0.5-16 Units/hr (0.5-16 mL/hr), Intravenous, CONTINUOUS, Starting on 10/30/23 at 1330, Until 11/05/23 at 1201, CHANGE BAG EVERY EVENING. Type 2 diabetes. Current blood glucose (BG) 140 - 179 Titration- aim for target range of 140 - 180 mg/dL. Check BG every hour unless otherwise indicated. [[ No initial bolus. Begin continuous infusion at 2 units/hour. ]] If BG at the time the infusion is started outside of the CURRENT BLOOD GLUCOSE range above, contact MD for new starting rate/bolus order. When infusion is paused, turn it back on as soon as possible per protocol. If BG at the time the infusion is started is outside of the CURRENT BLOOD GLUCOSE range above, contact provider for new starting rate/bolus order. Current BG less than 80 - Stop insulin. If BG less than 70, treat per hypoglycemia protocol. Re-check BG in 30 minutes and as soon as BG is greater than 80, restart with rate 50% of previous rate. If infusion stopped after previous rate had been 0.5 unit/hour, recheck every hour and when BG greater than 100 and higher than last test restart at 0.5 unit/hour. IF INFUSION IS PAUSED, TURN IT BACK ON SOON POSSIBLE, PER PROTOCOL. Current BG 80 - 139 - If BG dropped 10 mg/dL or more since last test, decrease rate by 50% and re-check in 30 minutes. Otherwise, decrease rate by 0.5 units/hour. Current BG 140 - 180 - If BG dropped 50 mg/dL or more since last test, decrease rate by 1 unit/hour. Otherwise, maintain same rate. Current BG 181 - 220 - If BG is lower than last test, maintain same rate. Otherwise, increase rate by 0.5 units/hour. Current BG 221 - 250 - If BG dropped 30 mg/dL or more since last test, maintain same rate. Otherwise, increase rate by 1 unit/hour. Current BG greater than 250 - Increase rate by 1 unit/hour AND bolus with Regular insulin IV as per IV Bolus Scale. Re-check BG in 30 minutes. THE FIRST DOSE OF SC INSULIN OUGHT TO BE ADMINISTERED BEFORE DISCONTINUING THE INFUSION. AN OVERLAP OF 2-3 HOURS IS RECOMMENDED. Continue to monitor the BG hourly., Routine Rate/Dose Verify 11/03/2023 10:00 PM EDT 0.5 Units/hr 0.5 mL/hr Rate/Dose Verify 11/03/2023 8:00 PM EDT 0.5 Units/hr 0.5 m L/hr Rate/Dose Verify 11/03/2023 6:00 PM EDT 0.5 Units/hr 0.5 m L/hr insulin regular human 10 Units in dextrose 10 % 500 mL infusion 10 Units, Intravenous, ONCE, 1 dose, On 10/30/23 at 1800, Administer over 1 Hours, This order should only be used as part of the hyperkalemia order set. Monitor BG every two hours X 3 and PRN. New Bag 10/30/2023 6:11 PM EDT 1 0 Units ipratropium-albuteroL (Duoneb) 0.5 mg-3 mg(2.5 mg base)/3 mL nebulizer solution 3 mL 3 mL, Nebulization, EVERY 4 HOURS, First dose on Mon11/10/23 at 2030, Until Discontinued, Routine Given 11/16/2023 4:11 AM EDT 3 mLs Given 11/15/2023 7:57 PM EDT 3 mLs Given 11/15/2023 3:57 PM EDT 3 mLs ipratropium-albuteroL (Duoneb) 0.5 mg-3 mg(2.5 mg base)/3 mL nebulizer solution 3 mL 3 mL, Nebulization, EVERY 6 HOURS WHILE AWAKE, First dose (after last modification) on [place] 11/16/23 at 1200, Until Discontinued, Routine Given 11/18/2023 6:00 AM EDT 3 mLs Given 11/17/2023 5:10 PM EDT 3 mLs Given 11/17/2023 12:25 PM EDT 3 mLs lidocaine (Lidoderm) 5% patch 1 patch 1 patch, Transdermal, Administer over 12 Hours, EVERY 24 HOURS, First dose on Mon10/30/23 at 1600, Until Discontinued, Apply patch(es) for 12 hours, and then remove for 12 hours., Routine Patch Applied 11/15/2023 3:57 PM EDT 1 patch 15- Thigh Anterior (Left) Patch Applied 11/12/2023 4:31 PM EDT 1 patch 05- Back Upper (Left) Patch Applied 11/11/2023 4:55 PM EDT 1 patch 09- Arm Upper (Left) losartan (Cozaar) tablet 100 mg 100 mg, Oral, DAILY, First dose (after last modification) on Mon11/15/23 at 0900, Until Discontinued, Routine Given 11/18/2023 8:40 AM EDT 100 mg Given 11/17/2023 8:10 AM EDT 100 mg Given 11/16/2023 10:03 AM EDT 100 mg losartan (Cozaar) tablet 25 mg 25 mg, Oral, DAILY, First dose on Mon11/12/23 at 1115, Until Discontinued, Routine Given 11/13/2023 8:41 AM EDT 25 mg Given 11/12/2023 11:10 AM EDT 25 mg losartan (Cozaar) tablet 25 mg 25 mg, Oral, ONCE, 1 dose, On Mon11/13/23 at 1615, Routine Given 11/13/2023 5:36 PM EDT 25 mg losartan (Cozaar) tablet 25 mg 25 mg, Oral, ONCE, 1 dose, On Mon11/14/23 at 0900, Routine Given 11/14/2023 9:29 AM EDT 25 mg losartan (Cozaar) tablet 50 mg 50 mg, Oral, DAILY, First dose (after last modification) on Mon11/14/23 at 0900, Until Discontinued, Routine Given 11/14/2023 8:22 AM EDT 50 mg losartan (Cozaar) tablet 50 mg 50 mg, Oral, ONCE, 1 dose, On Mon11/14/23 at 0845, Routine Given 11/14/2023 8:33 AM EDT 50 mg magnesium sulfate 2 g in sterile water 50 mL infusion 2 g, Intravenous, ONCE, 1 dose, On 11/11/23 at 0700, Administer over 120 Minutes Rate/Dose Verify 11/11/2023 8:00 AM EDT 25 mL/hr Rate/Dose Verify 11/11/2023 7:00 AM EDT 25 mL/h r New Bag 11/11/2023 6:48 AM EDT 2 g 25 mL/hr melatonin tablet 6 mg 6 mg, Oral, ONCE, 1 dose, On Mon11/13/23 at 2245, Routine Given 11/13/2023 10:45 PM EDT 6 mg metoprolol tartrate (Lopressor) tablet 12.5 mg 12.5 mg, Oral, EVERY 12 HOURS SCHEDULED (2 times per day), First dose on Mon11/10/23 at 1045, Until Discontinued, Routine Given 11/10/2023 11:08 AM EDT 12.5 m g metoprolol tartrate (Lopressor) tablet 12.5 mg 12.5 mg, Oral, EVERY 8 HOURS SCHEDULED, First dose (after last modification) on Mon11/10/23 at 1315, Until Discontinued, Routine Given 11/11/2023 5:11 AM EDT 12.5 mg Given 11/10/2023 9:51 PM EDT 12.5 mg Given 11/10/2023 1:31 PM EDT 12.5 mg metoprolol tartrate (Lopressor) tablet 12.5 mg 12.5 mg, Oral, ONCE, 1 dose, On Mon11/11/23 at 1215, Routine Given 11/11/2023 11:59 AM EDT 12.5 mg metoprolol tartrate (Lopressor) tablet 12.5 mg 12.5 mg, Oral, ONCE, 1 dose, On Mon11/13/23 at 1000, Routine Given 11/13/2023 9:54 AM EDT 12.5 mg metoproloL tartrate (Lopressor) tablet 25 mg 25 mg, Oral, EVERY 8 HOURS SCHEDULED, First dose (after last modification) on Mon11/11/23 at 1400, Until Discontinued, Routine Given 11/11/2023 2:23 PM EDT 25 mg metoprolol tartrate (Lopressor) tablet 37.5 mg 37.5 mg, Oral, EVERY 8 HOURS SCHEDULED, First dose (after last modification) on Mon11/11/23 at 2200, Until Discontinued, Routine Given 11/13/2023 6:24 AM EDT 37.5 mg Given 11/12/2023 9:04 PM EDT 37.5 mg Given 11/12/2023 1:37 PM EDT 37.5 mg metoprolol tartrate (Lopressor) tablet 50 mg 50 mg, Oral, EVERY 8 HOURS SCHEDULED, First dose (after last modification) on Mon11/13/23 at 1400, Until Discontinued, Routine Given 11/15/2023 5:16 AM EDT 50 mg Given 11/14/2023 9:01 PM EDT 50 mg Given 11/14/2023 1:15 PM EDT 50 mg milrinone (Primacor) (0.2 mg/mL) in dextrose 5% 100 mL infusion 0.125 mcg/kg/min ? 128.9 kg (4.8338 mL/hr, rounded to 4.8 mL/hr), Intravenous, CONTINUOUS, Starting on Mon10/30/23 at 1330, Until [place] 11/02/23 at 0930, All adjustments must be ordered by the prescriber. Do not exceed 0.75 mcg/kg/minute. Warning Vesicant/Irritant Medication Rate/Dose Verify 11/02/2023 8:00 AM EDT 0.125 mcg/kg/min 4.8 mL/hr Rate/Dose Verify 11/02/2023 6:00 AM EDT 0.125 mcg/kg/min 4 .8 mL/hr Rate/Dose Verify 11/02/2023 4:00 AM EDT 0.125 mcg/kg/min 4 .8 mL/hr niCARdipine (Cardene) (0.2 mg/mL) in sodium chloride 200 mL infusion 0-15 mg/hr (0-75 mL/hr), Intravenous, CONTINUOUS, Starting on Mon10/30/23 at 1330, Until [facility] 11/04/23 at 2024, Initiate if nitroGLYcerin ineffective at maintaining target mean BP. Titrate to MAP greater than 65 and less than 75 mmHg. Start at 5 mg/hr. Increase/decrease by 2.5 mg/hr every 5 minutes until goal reached. Do not exceed 15 mg/hr. Rotate IV site every 12 hours., Routine Rate/Dose Change 11/04/2023 8:13 PM EDT 5 mg/hr 25 mL/hr Rate/Dose Change 11/04/2023 7:35 PM EDT 5 mg/hr 25 mL/h r Rate/Dose Change 11/04/2023 7:30 PM EDT 10 mg/hr 50 mL/h r nitric oxide inhalation gas 0-5 parts per million 0-5 parts per million, Inhalation, CONTINUOUS, Starting on 11/04/23 at 0900, Until 11/05/23 at 1232, Arterial Blood Gases must be performed per protocol. Goal PAO2 >65, goal SPO2 >92 Wean to off, please, as tolerated by oxygenation: SpO2 > 92%., Routine, Indication(s)?: Refractory Hypoxia, Wean NO by: 1 ppm, Wean NO every: 2 hours Rate/Dose Verify 11/05/2023 5:10 AM EDT Rate/Dose Change 11/05/2023 12:30 AM EDT Restarted 11/04/2023 10:31 PM EDT nitric oxide inhalation gas 1 parts per million 1 parts per million, Inhalation, CONTINUOUS, Starting on 11/05/23 at 1300, Until [place] 11/05/23 at 1500, Arterial Blood Gases must be performed per protocol. Goal PAO2 >65, goal SPO2 >92 Wean to off, please, as tolerated by oxygenation: SpO2 > 92%., Routine, Indication(s)?: Refractory Hypoxia Rate/Dose Verify 11/05/2023 1:00 PM EDT nitric oxide inhalation gas 10 parts per million 10 parts per million, Inhalation, CONTINUOUS, Starting on 11/05/23 at 1700, Until 11/06/23 at 0652, Arterial Blood Gases must be performed per protocol. Goal PAO2 >65, goal SPO2 >92 Wean to off, please, as tolerated by oxygenation: SpO2 > 92%., Routine, Indication(s)?: Refractory Hypoxia Rate/Dose Verify 11/06/2023 4:41 AM EDT Rate/Dose Verify 11/06/2023 2:57 AM EDT Rate/Dose Verify 11/06/2023 12:00 AM EDT nitric oxide inhalation gas 10 parts per million 10 parts per million, Inhalation, CONTINUOUS, Starting on 11/06/23 at 0930, Until 11/08/23 at 1119, Arterial Blood Gases must be performed per protocol. Goal PAO2 >65, goal SPO2 >92 Wean to off, please, as tolerated by oxygenation: SpO2 > 92%., Routine, Indication(s)?: Refractory Hypoxia Rate/Dose Verify 11/07/2023 7:51 PM EDT Rate/Dose Change 11/06/2023 9:30 AM EDT nitric oxide inhalation gas 20 parts per million 20 parts per million, Inhalation, CONTINUOUS, Starting on [place] 11/02/23 at 1430, Until 11/03/23 at 1650, Arterial Blood Gases must be performed per protocol., Routine Rate/Dose Verify 11/02/2023 2:30 PM EDT nitric oxide inhalation gas 4 parts per million 4 parts per million, Inhalation, CONTINUOUS, Starting on 11/08/23 at 1345, Until [place] 11/09/23 at 0759, Arterial Blood Gases must be performed per protocol. Goal PAO2 >65, goal SPO2 >92 Wean to off, please, as tolerated by oxygenation: SpO2 > 92%., Routine, Indication(s)?: Refractory Hypoxia, Wean NO by: 1 ppm, Wean NO every: 2 hours / stop at 1ppm Rate/Dose Verify 11/09/2023 4:02 AM EDT Rate/Dose Verify 11/09/2023 3:00 AM EDT New Bag 11/08/2023 7:22 PM EDT 1 parts per million nitric oxide inhalation gas 5 parts per million 5 parts per million, Inhalation, CONTINUOUS, Starting on Mon11/03/23 at 1715, Until 11/04/23 at 0844, Arterial Blood Gases must be performed per protocol., Routine Rate/Dose Change 11/03/2023 5:15 PM EDT nitric oxide inhalation gas 5 parts per million 5 parts per million, Inhalation, CONTINUOUS, Starting on 11/05/23 at 1530, Until Mon11/05/23 at 1631, Arterial Blood Gases must be performed per protocol. Goal PAO2 >65, goal SPO2 >92 Wean to off, please, as tolerated by oxygenation: SpO2 > 92%., Routine, Indication(s)?: Refractory Hypoxia Rate/Dose Change 11/05/2023 3:30 PM EDT nitric oxide inhalation gas 5 parts per million 5 parts per million, Inhalation, CONTINUOUS, Starting on 11/06/23 at 0715, Until 11/06/23 at 0913, Arterial Blood Gases must be performed per protocol. Goal PAO2 >65, goal SPO2 >92 Wean to off, please, as tolerated by oxygenation: SpO2 > 92%., Routine, Indication(s)?: Refractory Hypoxia Rate/Dose Change 11/06/2023 7:15 AM EDT nitric oxide inhalation gas 5 parts per million 5 parts per million, Inhalation, CONTINUOUS, Starting on Mon11/08/23 at 1145, Until Mon11/08/23 at 1326, Arterial Blood Gases must be performed per protocol. Goal PAO2 >65, goal SPO2 >92 Wean to off, please, as tolerated by oxygenation: SpO2 > 92%., Routine, Indication(s)?: Refractory Hypoxia Rate/Dose Change 11/08/2023 11:55 AM EDT NORepinephrine (Levophed) (128 mcg/mL) in sodium chloride 0.9% 250 mL infusion (High Concentration) 0-30 mcg/min (0-14.0625 mL/hr, rounded to 0-14.1 mL/hr), Intravenous, CONTINUOUS, Starting on Mon10/31/23 at 0000, Until Mon11/05/23 at 1453, Begin if PHENYLephrine and/or vasopressin ineffective. Call pager # [phone] if initiated. Titrate to keep mean blood pressure greater than 65 mmHg. Start at 2 mcg/min. Increase/decrease by 2 mcg/min every 3 minutes until goal reached. Do not exceed 30 mcg/min. Warning Vesicant/Irritant Medication *High Concentration: 128 mcg/mL* For Central Line Use Only, STAT Rate/Dose Verify 11/05/2023 10:00 AM EDT 2 mcg/min 0.9 mL/hr Rate/Dose Verify 11/05/2023 8:00 AM EDT 2 mcg/min 0.9 mL/ hr Rate/Dose Verify 11/05/2023 6:00 AM EDT 2 mcg/min 0.9 mL/ hr NORepinephrine (Levophed) (16 mcg/mL) in dextrose 5% 250 mL infusion 0-30 mcg/min (0-112.5 mL/hr), Intravenous, CONTINUOUS, Starting on Mon10/30/23 at 1330, Until Mon10/30/23 at 2336, Begin if PHENYLephrine and/or vasopressin ineffective. Call pager # [phone] if initiated. Titrate to keep mean blood pressure greater than 65 mmHg. Start at 2 mcg/min. Increase/decrease by 2 mcg/min every 3 minutes until goal reached. Do not exceed 30 mcg/min. Warning Vesicant/Irritant Medication, Routine Rate/Dose Change 10/31/2023 12:03 AM EDT 4 mcg/min 15 mL/hr Rate/Dose Change 10/30/2023 11:36 PM EDT 8 mcg/min 30 mL/ hr Rate/Dose Change 10/30/2023 10:39 PM EDT 14 mcg/min 52.5 m L/hr NORepinephrine (Levophed) (16 mcg/mL) in dextrose 5% 250 mL infusion 0-30 mcg/min (0-112.5 mL/hr), Intravenous, CONTINUOUS, Starting on Mon11/05/23 at 1515, Until Mon11/15/23 at 0906, Titrate to keep MAP >65 and systolic blood pressure greater than 90 mmHg. Start at 2 mcg/min. Increase/decrease by 2 mcg/min every 3 minutes until goal reached. Do not exceed 30 mcg/min. Warning Vesicant/Irritant Medication, Routine New Bag 11/09/2023 12:35 AM EDT 2 mcg/min 7.5 mL/hr Rate/Dose Verify 11/08/2023 4:00 AM EDT 1 mcg/min 3.8 mL/ hr Rate/Dose Change 11/08/2023 3:18 AM EDT 1 mcg/min 3.8 mL/ hr ondansetron (pf) (Zofran) (2 mg/mL) injection 4 mg 4 mg, Intravenous, EVERY 8 HOURS PRN, Starting on Mon10/30/23 at 1302, Until 11/18/23 at 1631, Nausea Given 11/10/2023 2:35 AM EDT 4 mg pantoprazole (Protonix) injection 40 mg 40 mg, Intravenous, DAILY, First dose on Mon10/30/23 at 1330, Until Discontinued, Reconstitute with 10 mL of normal saline to a concentration of 4 mg/mL and inject slowly over 2 minutes. Reconstitute with 10 mL of normal saline to a concentration of 4 mg/mL and inject slowly over 2 minutes., Routine Given 11/12/2023 8:56 AM EDT 4 0 mg Given 11/11/2023 8:48 AM EDT 40 mg Given 11/10/2023 9:09 AM EDT 40 mg pantoprazole EC (Protonix) tablet 40 mg 40 mg, Oral, DAILY, First dose on Mon10/30/23 at 1330, Until Discontinued, DO NOT CRUSH OR OPEN If unable to take PO, may give IV, Routine Given 11/18/2023 8:40 AM EDT 40 mg Given 11/17/2023 8:10 AM EDT 40 mg Given 11/16/2023 10:00 AM EDT 40 mg piperacillin-tazobactam (Zosyn) 3.375 g vial attach to sodium chloride 0.9% 50 mL Mini-Bag Plus 3.375 g, Intravenous, EVERY 8 HOURS, 24 doses, First dose on Mon11/02/23 at 1830, Last dose on Mon11/10/23 at 1030, Administer over 4 Hours, Warning Vesicant/Irritant Medication Per crane operator labeling, do not administer or Y-site with lactated ringers., Indication for (Active or Suspected): Pneumonia ([facility]) New Bag 11/08/2023 1:56 AM EDT 3.375 g 12.5 mL/hr New Bag 11/07/2023 5:30 PM EDT 3.375 g 12.5 mL/hr New Bag 11/07/2023 9:30 AM EDT 3.375 g 12.5 mL/hr potassium chloride 20 mEq in sterile water 100 mL infusion 20 mEq, Intravenous, EVERY 1 HOUR PRN, Starting on Mon10/30/23 at 1302, Until Mon11/14/23 at 0912, Administer over 60 Minutes, hypokalemia, Administer 2 doses for a serum potassium (mMol/L) of 3.3 - 3.8 potassium chloride 20 meq/100 mL bags must be infused through a CENTRAL LINE New Bag 11/08/2023 6:36 AM EDT 20 mEq 100 mL/hr New Bag 11/07/2023 6:08 AM EDT 20 mEq 100 mL/hr New Bag 11/07/2023 2:20 AM EDT 20 mEq 100 mL/hr potassium chloride 20 mEq in sterile water 100 mL infusion 20 mEq, Intravenous, EVERY 1 HOUR PRN, Starting on Mon10/30/23 at 1302, Until Mon11/14/23 at 0912, Administer over 60 Minutes, hypokalemia, Administer 1 dose for a serum potassium (mMol/L) of 3.9 - 4 potassium chloride 20 meq/100 mL bags must be infused through a CENTRAL LINE New Bag 11/03/2023 9:06 AM EDT 20 mEq 100 mL/hr New Bag 11/02/2023 6:05 PM EDT 20 mEq 100 mL/hr New Bag 11/02/2023 1:26 PM EDT 20 mEq 100 mL/hr potassium phosphate (0.06 mmol/mL) in sodium chloride 0.9% continuous infusion (CRRT) 0-100 mL/hr, Intravenous, CONTINUOUS, Starting on Mon11/05/23 at 1030, Until Mon11/15/23 at 0908, Do not infuse with calcium chloride. Starting rate - 25 mL/hr (1.5 mMol/hr) Check phosphorus level 4 hours after initiation or rate change Phosphorus level less than 1 mg/dL- call Renal Fellow Phosphorus level 1-1.4 mg/dL- increase by 25 mL/hr Phosphorus level 1.5-1.9 mg/dL- increase by 16.5 mL/hr Phosphorus level 2-2.4 mg/dL- increase by 8 mL/hr Phosphorus level 2.5-4.4 mg/dL- No rate change Phosphorus level 4.5-5 mg/dL- decrease by 8 mL/hr Phosphorus level greater than 5 mg/dL- call Renal Fellow Stop Potassium Phosphate when CRRT stopped Restarted 11/13/2023 3:47 AM EDT 25 mL/hr 25 mL/hr New Bag 11/12/2023 10:26 PM EDT 25 mL/hr 25 mL/hr New Bag 11/12/2023 1:11 AM EDT 25 mL/hr 25 mL/hr propofoL (Diprivan) (10 mg/mL) infusion 0-50 mcg/kg/min ? 95.4 kg Adjusted weight (0-28.62 mL/hr, rounded to 0-28.6 mL/hr), Intravenous, CONTINUOUS, Starting on 10/30/23 at 1330, Until Mon11/05/23 at 1238, Titrate to sedation level of RASS Goal (-1). Start at 10 mcg/kg/min. Increase/decrease by 5 mcg/kg/min every 3 minutes until goal reached. Once stable, reassess patient every 30 minutes. Do not exceed 50 mcg/kg/minute. Discontinue upon extubation. ., Routine Rate/Dose Change 11/04/2023 11:15 AM EDT 20 mcg/kg/min 11.4 mL/hr Rate/Dose Change 11/04/2023 10:45 AM EDT 30 mcg/kg/min 17. 2 mL/hr Rate/Dose Verify 11/04/2023 10:00 AM EDT 50 mcg/kg/min 28. 6 mL/hr protein powder 2 Scoop, Per NG tube, 3 TIMES DAILY, First dose on Mon11/07/23 at 1500, Until Discontinued, Routine Given 11/12/2023 9:05 PM EDT 2 Scoops Given 11/12/2023 3:00 PM EDT 2 Scoops Given 11/12/2023 9:00 AM EDT 2 Scoops QUEtiapine (Seroquel) tablet 25 mg 25 mg, Oral, NIGHTLY, First dose on Mon11/07/23 at 2100, Until Discontinued, Routine Given 11/07/2023 8:18 PM EDT 25 mg QUEtiapine (Seroquel) tablet 50 mg 50 mg, Oral, ONCE, 1 dose, On Mon11/07/23 at 0030, Routine Given 11/07/2023 12:27 AM EDT 50 mg QUEtiapine (Seroquel) tablet 50 mg 50 mg, Oral, NIGHTLY, First dose (after last modification) on Mon11/08/23 at 2100, Until Discontinued, Routine Given 11/15/2023 9:17 PM EDT 50 mg Given 11/14/2023 9:01 PM EDT 50 mg Given 11/13/2023 9:04 PM EDT 50 mg senna-docusate (Pericolace) 8.6-50 mg per tablet 2 tablet 2 tablet, Oral, DAILY, First dose on Mon10/31/23 at 2100, Until Discontinued, Post-op day 1, Routine Given 11/17/2023 8:44 PM EDT 2 tablets Given 11/16/2023 8:23 PM EDT 2 tablets Given 11/12/2023 8:12 PM EDT 2 tablets sevelamer carbonate (Renvela) tablet 800 mg 800 mg, Oral, 3 TIMES DAILY WITH MEALS, First dose on Mon11/15/23 at 0945, Until Discontinued, DO NOT CRUSH OR OPEN, Routine Given 11/18/2023 8:40 AM EDT 800 mg Given 11/17/2023 5:10 PM EDT 800 mg Given 11/17/2023 12:25 PM EDT 800 mg sodium bicarbonate 8.4 % (1 meq/ml) IV solution 100 mEq 100 mEq, Intravenous, ONCE, 1 dose, On Mon11/05/23 at 1515, Warning Vesicant/Irritant Medication , Routine Given 11/05/2023 2:53 PM EDT 100 mEq sodium bicarbonate 8.4 % (1 meq/ml) IV solution 100 mEq 100 mEq, Intravenous, ONCE, 1 dose, On Mon11/06/23 at 1415, Warning Vesicant/Irritant Medication , Routine Given 11/06/2023 2:23 PM EDT 100 mEq sodium bicarbonate 8.4 % (1 meq/ml) IV solution 50 mEq 50 mEq, Intravenous, ONCE, 1 dose, On Mon10/30/23 at 1730, Warning Vesicant/Irritant Medication , Routine Given 10/30/2023 5:29 PM EDT 50 mEq sodium bicarbonate 8.4 % (1 meq/ml) IV solution 50 mEq 50 mEq, Intravenous, ONCE, 1 dose, On Mon10/30/23 at 2100, Warning Vesicant/Irritant Medication , Routine Given 10/30/2023 8:44 PM EDT 50 mEq sodium bicarbonate 8.4 % (1 meq/ml) IV solution 50 mEq 50 mEq, Intravenous, ONCE, 1 dose, On Mon10/30/23 at 2215, Warning Vesicant/Irritant Medication , Routine Given 10/30/2023 9:51 PM EDT 50 mEq sodium bicarbonate 8.4 % (1 meq/ml) IV solution 50 mEq 50 mEq, Intravenous, ONCE, 1 dose, On Mon11/06/23 at 1300, Warning Vesicant/Irritant Medication , Routine Given 11/06/2023 1:04 PM EDT 50 mEq sodium bicarbonate 8.4 % (1 meq/ml) IV solution 1 dose, Starting on Mon10/30/23 at 2150, Until Mon10/30/23 at 2151, Fritz Cabral: cabinet override sodium chloride 0.9 % (flush) (BD PosiFlush Normal Saline 0.9) flush 5 mL 5 mL, Intravenous, EVERY 8 HOURS, First dose on Mon11/15/23 at 1000, Until Discontinued, Routine Given 11/18/2023 9:43 AM EDT 5 mLs Given 11/18/2023 2:00 AM EDT 5 mLs Given 11/17/2023 5:11 PM EDT 5 mLs sodium chloride 0.9% 500 mL IV bolus Intravenous, ONCE, 1 dose, On 11/05/23 at 1345 New Bag 11/05/2023 1:34 PM EDT 500 mL/hr sodium chloride 0.9% infusion 0-500 mL/hr, Intravenous, CONTINUOUS, Starting on Mon10/30/23 at 1330, Until Mon11/01/23 at 1329, Bolus 250 mL every 5 minutes as needed for volume replacement to maintain cardiac index greater than or equal to 2.0 L/min/M2. Maximum volume 2 L. Call housekeeper/laundry assistant for additional fluid orders: pager #[phone]. Rate/Dose Verify 10/31/2023 6:00 AM EDT 1 mL/hr 1 mL/hr Rate/Dose Verify 10/31/2023 4:00 AM EDT 1 mL/hr 1 mL/hr Rate/Dose Verify 10/31/2023 2:00 AM EDT 1 mL/hr 1 mL/hr sodium chloride 0.9% infusion 10-30 mL/hr, Intravenous, DAILY PRN, Starting on Mon10/30/23 at 1302, Until Mon11/15/23 at 0908, Side port TKO rate, per [facility] nursing protocol. Rate/Dose Verify 11/05/2023 6:00 AM EDT 10 mL/hr 10 mL/hr Rate/Dose Verify 11/05/2023 4:00 AM EDT 10 mL/hr 10 mL/h r Rate/Dose Verify 11/05/2023 2:00 AM EDT 10 mL/hr 10 mL/h r sodium chloride 0.9% infusion 10-30 mL/hr, Intravenous, DAILY PRN, Starting on Mon10/30/23 at 1302, Until 11/18/23 at 1631, Side port TKO rate, per [facility] nrusing protocol. Rate/Dose Verify 11/13/2023 10:00 AM EDT 10 mL/hr 10 mL/hr Rate/Dose Verify 11/13/2023 8:00 AM EDT 10 mL/hr 10 mL/h r Rate/Dose Verify 11/13/2023 7:00 AM EDT 10 mL/hr 10 mL/h r torsemide (Demadex) tablet 20 mg 20 mg, Oral, DAILY, First dose on 11/18/23 at 0915, Until Discontinued, Routine Given 11/18/2023 9:43 AM EDT 20 mg traZODone (Desyrel) tablet 50 mg 50 mg, Oral, ONCE, 1 dose, On 11/13/23 at 2330, Routine Given 11/13/2023 11:54 PM EDT 50 mg traZODone (Desyrel) tablet 50 mg 50 mg, Oral, NIGHTLY, First dose on Polina 11/16/23 at 2100, Until Discontinued, Routine Given 11/17/2023 8:45 PM EDT 50 mg Given 11/16/2023 8:23 PM EDT 50 mg tube feeding diet 240 mL, Per NG tube, at 10 mL/hr, CONTINUOUS, Starting on Mon11/03/23 at 1130, Until 11/04/23 at 0844, Administer flushes and check residuals per policy, Which tube feed product? Peptamen Intense VHP, Strength: FULL Strength, Goal final rate: (mL/hr): 10 Rate/Dose Verify 11/04/2023 8:00 AM EDT 10 mL/hr Rate/Dose Verify 11/04/2023 6:00 AM EDT 10 mL/h r Rate/Dose Verify 11/04/2023 4:00 AM EDT 10 mL/h r tube feeding diet 1,100 mL, Per NG tube, at 55 mL/hr, CONTINUOUS, Starting on 11/04/23 at 0930, Until 11/05/23 at 0848, Administer flushes and check residuals per policy, Which tube feed product? Peptamen Intense VHP, Strength: FULL Strength, Initial Rate: (mL/hr): 20, Advance by: (mL): 10, Advance every: Q8H, Goal final rate: (mL/hr): 55 Rate/Dose Verify 11/05/2023 8:00 AM EDT 55 mL/hr New Bag 11/05/2023 5:59 AM EDT 1,100 mLs 55 mL/hr Rate/Dose Verify 11/05/2023 4:00 AM EDT 40 mL/h r tube feeding diet 1,100 mL, Per NG tube, at 55 mL/hr, CONTINUOUS, Starting on 11/05/23 at 0945, Until 11/05/23 at 1541, Administer flushes and check residuals per policy, Which tube feed product? Peptamen Intense VHP, Strength: FULL Strength, Initial Rate: (mL/hr): 20, Advance by: (mL): 10, Advance every: Q8H, Goal final rate: (mL/hr): 55, Do you want to Hold Tube Feed? Yes, What Start date should the Tube Feed be held? 11/06/2023, What time should the Tube Feed be held? 12:01 AM Rate/Dose Verify 11/05/2023 2:00 PM EDT 50 mL/hr Rate/Dose Verify 11/05/2023 12:00 PM EDT 50 mL/ hr Rate/Dose Change 11/05/2023 10:30 AM EDT 50 mL/ hr tube feeding diet 1,100 mL, Per NG tube, at 55 mL/hr, CONTINUOUS, Starting on 11/05/23 at 1630, Until 11/06/23 at 0229, Administer flushes and check residuals per policy, Which tube feed product? Peptamen Intense VHP, Strength: FULL Strength, Initial Rate: (mL/hr): 20, Advance by: (mL): 10, Advance every: Q8H, Goal final rate: (mL/hr): 55, Do you want to Hold Tube Feed? No Rate/Dose Verify 11/06/2023 2:00 AM EDT 55 mL/hr New Bag 11/06/2023 1:12 AM EDT 1,100 mLs 55 mL/hr Rate/Dose Verify 11/06/2023 12:00 AM EDT 55 mL/ hr tube feeding diet 1,100 mL, Per NG tube, at 55 mL/hr, CONTINUOUS, Starting on 11/06/23 at 0830, Until Mon11/06/23 at 1359, Administer flushes and check residuals per policy, Which tube feed product? Peptamen Intense VHP, Strength: FULL Strength, Initial Rate: (mL/hr): 55, Goal final rate: (mL/hr): 55, Do you want to Hold Tube Feed? No Rate/Dose Verify 11/06/2023 12:00 PM EDT 55 mL/hr Rate/Dose Verify 11/06/2023 10:00 AM EDT 55 mL/ hr Rate/Dose Verify 11/06/2023 8:00 AM EDT 55 mL/h r tube feeding diet 1,100 mL, Small Bore, Weighted Tube, at 55 mL/hr, CONTINUOUS, Starting on Mon11/06/23 at 1445, Until Mon11/07/23 at 1124, Administer flushes and check residuals per policy, Which tube feed product? Nepro, Strength: FULL Strength, Initial Rate: (mL/hr): 55 Rate/Dose Verify 11/07/2023 11:00 AM EDT 55 mL/hr Rate/Dose Verify 11/07/2023 10:00 AM EDT 55 mL/ hr Rate/Dose Verify 11/07/2023 9:00 AM EDT 55 mL/h r tube feeding diet 1,500 mL, Small Bore, Weighted Tube, CONTINUOUS, Starting on Mon11/07/23 at 1215, Until Mon11/13/23 at 0808, Administer flushes and check residuals per policy, Which tube feed product? Peptamen AF, Strength: FULL Strength, Initial Rate: (mL/hr): 25, Advance by: (mL): 10, Advance every: Q6H, Goal final rate: (mL/hr): 75 Rate/Dose Verify 11/13/2023 8:00 AM EDT 55 mL/hr Rate/Dose Change 11/13/2023 7:03 AM EDT 55 mL/h r Rate/Dose Verify 11/13/2023 7:00 AM EDT 45 mL/h r vancomycin (Vancocin) 2,500 mg in sodium chloride 0.9% 550 mL infusion 2,500 mg, Intravenous, at 183.3 mL/hr, ONCE, 1 dose, On [facility] 11/02/23 at 1900, Maximum infusion rate is 1 gram/hour. If flushing of the face, neck, upper body, arms, and/or back occurs decrease infusion rate by 50% to reduce the severity of symptoms. This medication may have an associated drug lab level. Please see MAR for scheduled level. Warning Vesicant/Irritant Medication , STAT, Indication for (Active or Suspected): Pneumonia ([facility]) New Bag 11/02/2023 7:04 PM EDT 2,500 mg 183.3 mL/hr vasopressin (Vasostrict) (0.2 units/mL) 100 mL infusion 0.04-0.1 Units/min (12-30 mL/hr), Intravenous, CONTINUOUS, Starting on Mon10/30/23 at 2130, Until Mon10/31/23 at 0220, Titrate to keep systolic blood pressure greater than 90 mmHg. Start at 0.04 units/min. Increase/decrease by 0.005 units/min every 10 minutes until goal reached. Do not exceed 0.1 units/min. A provider may increase to a maximum of 0.4 units/min. Rate/Dose Verify 10/31/2023 2:00 AM EDT 0.06 Units/min 18 mL/hr Rate/Dose Change 10/31/2023 12:26 AM EDT 0.06 Units/min 18 mL/hr Rate/Dose Verify 10/31/2023 12:00 AM EDT 0.04 Units/min 12 mL/hr vasopressin (Vasostrict) (0.2 units/mL) in sodium chloride 0.9% 100 mL infusion 0.04-0.1 Units/min (12-30 mL/hr), Intravenous, CONTINUOUS, Starting on Mon10/31/23 at 0245, Until Mon11/03/23 at 1650, Titrate to keep systolic blood pressure greater than 90 mmHg. Start at 0.04 units/min. Increase/decrease by 0.005 units/min every 10 minutes until goal reached. Do not exceed 0.1 units/min. A provider may increase to a maximum of 0.4 units/min. Rate/Dose Change 11/01/2023 1:05 PM EDT 0.02 Units/min 6 mL/hr Rate/Dose Verify 11/01/2023 12:00 PM EDT 0.04 Units/min 12 mL/hr Rate/Dose Verify 11/01/2023 10:00 AM EDT 0.04 Units/min 12 mL/hr vecuronium (Norcuron) 10 mg injection 1 dose, Starting on [facility] 11/02/23 at 1820, Until [facility] 11/02/23 at 1842, Janie Smith (ANES): cabinet override Given 11/02/2023 6:42 PM EDT 10 mg vitamin B Complex-vitamin C-folic Acid (Cristal-jose) 0.8 mg per tablet 1 tablet 1 tablet, Oral, DAILY, First dose on [facility] 11/04/23 at 1430, Until Discontinued, Routine Given 11/18/2023 8:39 AM EDT 1 tablet Given 11/17/2023 8:10 AM EDT 1 tablet Given 11/16/2023 10:00 AM EDT 1 tablet warfarin (Coumadin) 5 mg in sterile water 10 mL custom oral liquid Per NG tube, ONCE, On Mon11/03/23 at 1700, 1 dose Given 11/03/2023 5:5 9 PM EDT documented in this encounter Active and Recently Administered Medications Times are shown in EDT. Scheduled Medication Order 11/16/2023 11/17/2023 11/18/2023 acetaminophen (Tylenol) (32.02 mg/mL) oral liquid 1,000 mg (CANCELED) 1,000 mg, Oral, EVERY 6 HOURS SCHEDULED, First dose (after last modification) on [facility] 11/04/23 at 1200, Until Discontinued, - Maximum dose of acetaminophen is 4,000 mg from all sources in 24 hours. - Unless otherwise specified, when ordered PRN for pain, acetaminophen should be given first if other PRN pain medications are ordered., Routine 0034 (Given - Provider: Errol Stratton RN)0526 (Given - Provider: Hector Hair RN) acetaminophen (Tylenol) tablet 975 mg 975 mg, Oral, EVERY 6 HOURS SCHEDULED, First dose on [facility] 11/16/23 at 1200, Until Discontinued, - Maximum dose of acetaminophen is 4,000 mg from all sources in 24 hours. - Unless otherwise specified, when ordered PRN for pain, acetaminophen should be given first if other PRN pain medications are ordered., Routine 1129 (Given - Provider: Radha Caal RN)1714 (Given - Provider: Radha Caal RN) 0007 (Given - Provider: Hector Hair RN)0504 (Given - Provider: Hector Hair RN)1225 (Given - Provider: Becca Hebert, DELL)1710 (Given - Provider: Becca Hebert, DELL)2334 (Given - Provider: Hector Hair RN) 0559 (Given - Provider: Hector Hair RN)1200 (Due) AMIOdarone (Pacerone) tablet 200 mg (CANCELED) 200 mg, Oral, 2 TIMES DAILY, First dose (after last modification) on Mon11/10/23 at 2100, Until Discontinued, Routine 1002 (Given - Provider: Radha Caal RN)2022 (Given - Provider: Hector Hair RN) 0809 (Given - Provider: Zeb Cali RN - Comment: DELL Hebert reached out to charge phone saying that MD asked her to give this, but that she forgot to go back in and change it from held to given)2043 (Given - Provider: Hcetor Hair RN) 0840 (Given - Provider: Mary Garcia RN) AMIOdarone (Pacerone) tablet 200 mg 200 mg, Oral, DAILY, First dose (after last modification) on 11/18/23 at 2000, Until Discontinued, Routine apixaban (Eliquis) tablet 2.5 mg 2.5 mg, Oral, 2 TIMES DAILY, First dose on Mon11/14/23 at 2100, Until Discontinued, Anticoagulant, Routine, apixaban (Eliquis) Indication: DVT or PE, Chronic/Long-term (Secondary Prevention) 1003 (Given - Provider: Radha Caal RN)2022 (Given - Provider: Hector Hair RN) 0810 (Given - Provider: Becca Hebert, DELL)2044 (Given - Provider: Hector Hair RN) 0840 (Given - Provider: Mary Garcia RN) aspirin chewable tablet 81 mg (CANCELED) 81 mg, Per NG tube, DAILY, First dose on 11/04/23 at 0900, Until Discontinued, Give PA if unable to PO, Routine 958 (Given - Provider: Radha Caal RN) aspirin chewable tablet 81 mg(Linked Group 1) 81 mg, Oral, DAILY, First dose (after last modification) on Mon11/17/23 at 0900, Until Discontinued, Routine 0810 (Given - Provider: Becca Hebert RN) 0840 (Given - Provider: Mary Garcia, RN) atorvastatin (Lipitor) tablet 40 mg 40 mg, Oral, EVERY EVENING, First dose (after last modification) on Mon11/08/23 at 1700, Until Discontinued, Routine 1715 (Given - Provider: Radha Caal RN) 1710 (Given - Provider: Becca Hebert, DELL) carvediloL (Coreg) tablet 18.75 mg (CANCELED) 18.75 mg, Oral, 2 TIMES DAILY WITH MEALS, First dose (after last modification) on Mon11/16/23 at 0845, Until Discontinued, Routine 1001 (Given - Provider: Radha Caal RN)1714 (Given - Provider: Radha Caal RN) 0810 (Given - Provider: Becca Hebert RN) carvediloL (Coreg) tablet 25 mg 25 mg, Oral, 2 TIMES DAILY WITH MEALS, First dose (after last modification) on Mon11/17/23 at 1700, Until Discontinued, Routine 1710 (Given - Provider: Becca Hebert RN) 0840 (Given - Provider: Mary Garcia, DELL) carvediloL (Coreg) tablet 6.25 mg (COMPLETED) 6.25 mg, Oral, ONCE, 1 dose, On Mon11/17/23 at 0915, Routine 0915 (Given - Provider: Becca Hebert, DELL) citalopram (CeleXA) tablet 10 mg 10 mg, Oral, DAILY, First dose on Mon11/15/23 at 2000, Until Discontinued, Routine 1004 (Given - Provider: Radha Caal RN) 0810 (Given - Provider: Becca Hebert RN) 0840 (Given - Provider: Mary Garcia, DELL) clopidogreL (Plavix) tablet 75 mg 75 mg, Oral, DAILY, First dose on Mon10/31/23 at 0900, Until Discontinued, Routine 1000 (Given - Provider: Radha Caal RN) 0810 (Given - Provider: Becca Hebert, DELL) 0840 (Given - Provider: Mary Garcia, DELL) epoetin sha-epbx (Retacrit) injection 10,000 Units 10,000 Units, Subcutaneous, THREE TIMES WEEKLY (Mon, , Mon) (Once per day on Monday), First dose on Mon11/04/23 at 1145, Until Discontinued, Routine, What is the indication of use? Chronic Kidney Disease (CKD) 0915 (Given - Provider: Becca Hebert RN) ergocalciferoL (vitamin D2) (8,000 units/mL) oral liquid 50,000 Units 50,000 Units, Oral, WEEKLY, First dose (after last modification) on Mon11/18/23 at 0900, Until Discontinued, Routine 0855 (Given - Provider: Mary Garcia, RN) ferrous sulfate EC (FeroSul) tablet 325 mg 325 mg, Oral, DAILY WITH BREAKFAST, First dose on Mon11/14/23 at 0900, Until Discontinued, DO NOT CRUSH OR OPEN. Take with food or water., Routine 1001 (Given - Provider: Radha Caal RN) 0810 (Given - Provider: Becca Hebert, DELL) 0840 (Given - Provider: Mary Garcia, DELL) insulin glargine-ygfn (Semglee) (100 unit/mL) subcutaneous injection vial 48 Units 48 Units, Subcutaneous, EVERY 24 HOURS, First dose (after last modification) on Mon11/16/23 at 1800, Until Discontinued, Routine 1730 (Given - Provider: Radha Caal RN) 1710 (Given - Provider: Becca Hebert, DELL) insulin lispro (HumaLOG;Admelog) (100 unit/mL) subcutaneous injection vial 0-15 Units 0-15 Units, Subcutaneous, 3 TIMES DAILY WITH MEALS, First dose (after last modification) on Mon11/16/23 at 1230, Until Discontinued, [employer] Give 1 unit for every 5 grams carbohydrate. Hold if not eating or if BG less than 70 mg/dL. , Routine 1300 (Given - Provider: Radha Caal RN)1727 (Given - Provider: Radha Caal RN) 0800 (Not Given - Provider: Becca Hebert, DELL - Reason: Contraindicated)1225 (Given - Provider: Becca Hebert, DELL)1710 (Given - Provider: Becca Hebert, DELL) 0841 (Given - Provider: Mary Garcia RN)1200 (Due) insulin lispro (HumaLOG;Admelog) (100 unit/mL) subcutaneous injection vial 1-11 Units(Linked Group 2) 1-11 Units, Subcutaneous, EVERY 4 HOURS SCHEDULED, First dose on Mon11/07/23 at 1200, Until Discontinued, CORRECTION BOLUS [1-11 Units] Custom Sliding Scale (BG in mg/dL): Correction factor 15 (1 unit of insulin is expected to drop the glucose 15mg/dL) BG 140 - 155 Give 1 unit BG 156 - 170 Give 2 units BG 171 - 185 Give 3 units BG 186 - 200 Give 4 units BG 201 - 215 Give 5 units BG 216 - 230 Give 6 units BG 231 - 245 Give 7 units BG 246 - 260 Give 8 units BG 261 - 275 Give 9 units BG 276 - 290 Give 10 units BG greater than 290, give 11 units and recheck BG in 2 hours. For 2hr recheck dose: If recheck BG remains greater than 240, GIVE 4 units. If recheck BG is less than 240 after two hours, give no insulin and resume prior schedule. DO NOT hold if NPO, unless specifically directed to do so by written order. Per Blood Glucose Monitoring Policy, re-check a BG of > 240 mg/dL in 2 hours , Routine 0000 (Not Given - Provider: Errol Stratton RN - Reason: Order parameters not met - Comment: [phone] (Given - Provider: Hector Hair, DELL)0808 (Given - Provider: Radha Caal, DELL)1129 (Given - Provider: Radha Caal, DELL)1725 (Given - Provider: Radha Caal, DELL)2004 (Given - Provider: Hector Hair, DELL) 0005 (Given - Provider: Hector Hair RN)0408 (Given - Provider: Hector Hair, DELL)0815 (Given - Provider: Becca Hebert, DELL)1226 (Given - Provider: Becca Hebert RN)1600 (Not Given - Provider: Becca Hebert RN - Reason: Order parameters not met)2000 (Not Given - Provider: Hector Hair RN - Reason: Order parameters not met) 0000 (Not Given - Provider: Hector Hair RN - Reason: Order parameters not met)0400 (Not Given - Provider: Hector Hair RN - Reason: Order parameters not met)0800 (Not Given - Provider: Mary Garcia RN - Reason: Order parameters not met)1200 (Due) ipratropium-albuteroL (Duoneb) 0.5 mg-3 mg(2.5 mg base)/3 mL nebulizer solution 3 mL (CANCELED) 3 mL, Nebulization, EVERY 4 HOURS, First dose on Mon11/10/23 at 2030, Until Discontinued, Routine 0000 (Not Given - Provider: Errol Stratton RN - Reason: Patient/family refused)0411 (Given - Provider: Hector Hair RN)0800 (Not Given - Provider: Becca Hebert RN - Reason: Medication Discontinued) ipratropium-albuteroL (Duoneb) 0.5 mg-3 mg(2.5 mg base)/3 mL nebulizer solution 3 mL 3 mL, Nebulization, EVERY 6 HOURS WHILE AWAKE, First dose (after last modification) on Mon11/16/23 at 1200, Until Discontinued, Routine 1134 (Given - Provider: Radha Caal RN)1714 (Given - Provider: Radha Caal RN) 0504 (Given - Provider: Hector Hair RN)1225 (Given - Provider: Becca Hebert RN)1710 (Given - Provider: Becca Hebert RN) 0600 (Given - Provider: Hector Hair RN)1200 (Due) lidocaine (Lidoderm) 5% patch 1 patch 1 patch, Transdermal, Administer over 12 Hours, EVERY 24 HOURS, First dose on Mon10/30/23 at 1600, Until Discontinued, Apply patch(es) for 12 hours, and then remove for 12 hours., Routine 0357 (Patch Removed - Provider: Hector Hair RN)1600 (Not Given - Provider: Radha Caal RN - Reason: Patient/family refused) 1600 (Not Given - Provider: Becca Hebert RN - Reason: Patient/family refused) losartan (Cozaar) tablet 100 mg 100 mg, Oral, DAILY, First dose (after last modification) on Mon11/15/23 at 0900, Until Discontinued, Routine 1003 (Given - Provider: Radha Caal RN) 0810 (Given - Provider: Becca Hebert, DELL) 0840 (Given - Provider: Mary Garcia RN) pantoprazole (Protonix) injection 40 mg(Linked Group 3) 40 mg, Intravenous, DAILY, First dose on Mon10/30/23 at 1330, Until Discontinued, Reconstitute with 10 mL of normal saline to a concentration of 4 mg/mL and inject slowly over 2 minutes. Reconstitute with 10 mL of normal saline to a concentration of 4 mg/mL and inject slowly over 2 minutes., Routine 1000 (See Alternative - Provider: Radha Caal RN) 0810 (See Alternative - Provider: Becca Hebert RN) 0840 (See Alternative - Provider: Mary Garcia RN) pantoprazole EC (Protonix) tablet 40 mg(Linked Group 3) 40 mg, Oral, DAILY, First dose on Mon10/30/23 at 1330, Until Discontinued, DO NOT CRUSH OR OPEN If unable to take PO, may give IV, Routine 1000 (Given - Provider: Radha Caal RN) 0810 (Given - Provider: Becca Hebert RN) 0840 (Given - Provider: Mary Garcia RN) senna-docusate (Pericolace) 8.6-50 mg per tablet 2 tablet 2 tablet, Oral, DAILY, First dose on Mon10/31/23 at 2100, Until Discontinued, Post-op day 1, Routine 2022 (Given - Provider: Hector Hair RN) 2043 (Given - Provider: Hector Hair RN) sevelamer carbonate (Renvela) tablet 800 mg 800 mg, Oral, 3 TIMES DAILY WITH MEALS, First dose on Mon11/15/23 at 0945, Until Discontinued, DO NOT CRUSH OR OPEN, Routine 1003 (Given - Provider: Radha Caal RN)1129 (Given - Provider: Radha Caal RN)1715 (Given - Provider: Radha Caal RN) 0810 (Given - Provider: Becca Hebert RN)1225 (Given - Provider: Becca Hebert RN)1710 (Given - Provider: Becca Hebert RN) 0840 (Given - Provider: Mary Garcia RN)1200 (Due) sodium chloride 0.9 % (flush) (BD PosiFlush Normal Saline 0.9) flush 5 mL 5 mL, Intravenous, EVERY 8 HOURS, First dose on Mon11/15/23 at 1000, Until Discontinued, Routine 0132 (Given - Provider: Hector Hair RN)1000 (Not Given - Provider: Radha Caal RN - Reason: See comment - Comment: given during assessment)1800 (Not Given - Provider: Radha Caal RN - Reason: See comment - Comment: given during assessment) 0231 (Given - Provider: Hector Hair RN)0900 (Not Given - Provider: Becca Hebert RN - Reason: Contraindicated)1711 (Given - Provider: Becca Hebert RN) 0200 (Given - Provider: Hector Hair RN)0943 (Given - Provider: Mary Garcia RN) torsemide (Demadex) tablet 20 mg 20 mg, Oral, DAILY, First dose on 11/18/23 at 0915, Until Discontinued, Routine 0943 (Given - Provider: Mary Garcia RN) traZODone (Desyrel) tablet 50 mg 50 mg, Oral, NIGHTLY, First dose on [facility] 11/16/23 at 2100, Until Discontinued, Routine 2022 (Given - Provider: Hector Hair RN) 204 (Given - Provider: Hector Hair RN) vitamin B Complex-vitamin C-folic Acid (Cristal-jose) 0.8 mg per tablet 1 tablet 1 tablet, Oral, DAILY, First dose on 11/04/23 at 1430, Until Discontinued, Routine 1000 (Given - Provider: Radha Caal RN) 0810 (Given - Provider: Becca Hebert RN) 0839 (Given - Provider: Mary Garcia RN) PRN Medication Order 11/16/2023 11/17/2023 11/18/2023 bisacodyL (Dulcolax) suppository 10 mg 10 mg, Rectal, DAILY PRN, Starting on [facility] 11/02/23 at 0000, Until 11/18/23 at 1631, Constipation, Starting post-op day 3., Routine dextrose 10% infusion(Linked Group 4) 250 mL, at 1,000 mL/hr, Intravenous, EVERY 15 MIN PRN, Starting on 11/06/23 at 0914, Until 11/18/23 at 1631, For BG 50-70 mg/dL: Oral treatment preferred: [...] insulin orders before administering the next dose. glucagon (Glucagen) (1 mg/mL) injection solution 1 mg(Linked Group 4) 1 mg, Intramuscular, EVERY 15 MIN PRN, Starting on 11/06/23 at 0914, Until 11/18/23 at 1631, Low blood sugar, For BG 50-70 mg/dL: [...] Routine glucose (Glutose) 40% oral geL(Linked Group 4) 15-30 g of glucose, Buccal, EVERY 15 MIN PRN, Starting on 11/06/23 at 0914, Until 11/18/23 at 1631, Low blood sugar, For BG 50-70 mg/dL: [...] weight of tube = 37.5 grams.), Routine hydrALAZINE (Apresoline) (20 mg/mL) injection 10 mg 10 mg, Intravenous, EVERY 4 HOURS PRN, Starting on 11/04/23 at 2019, Until 11/18/23 at 1631, High Blood Pressure, give for SBP >150 0436 (Given - Provider: Hector Hair, DELL) 0415 (Given - Provider: Hector Hair RN) HYDROmorphone (Dilaudid) tablet 2 mg(Linked Group 5) 2 mg, Oral, EVERY 4 HOURS PRN, Starting on 10/30/23 at 1302, Until 11/18/23 at 1631, Pain, moderate pain (4-6), For adults, may give in place of other agent(s) ordered for pain (7-10) at patient request. If multiple routes of administration ordered, oral route first line., Routine HYDROmorphone (Dilaudid) tablet 2 mg 2 mg, Oral, EVERY 4 HOURS PRN, Starting on Mon10/30/23 at 1302, Until 11/18/23 at 1631, Pain, Breakthrough pain rescue dose, For moderate or severe pain (4-10) unrelieved at least 60 minutes after initial PRN dose was administered. Max 3 doses/24 hours. If pain still unrelieved after 3rd rescue dose within 24 hours, contact provider. If multiple routes of administration ordered, oral route first line., Routine HYDROmorphone (Dilaudid) tablet 4 mg(Linked Group 5) 4 mg, Oral, EVERY 4 HOURS PRN, Starting on Mon10/30/23 at 1302, Until 11/18/23 at 1631, Pain, severe pain (7-10), If multiple routes of administration ordered, oral route first line., Routine ondansetron (pf) (Zofran) (2 mg/mL) injection 4 mg 4 mg, Intravenous, EVERY 8 HOURS PRN, Starting on Mon10/30/23 at 1302, Until 11/18/23 at 1631, Nausea sodium chloride 0.9% infusion 10-30 mL/hr, Intravenous, DAILY PRN, Starting on Mon10/30/23 at 1302, Until 11/18/23 at 1631, Side port TKO rate, per [facility] nrusing protocol. Linked Groups Order Group 1: aspirin chewable tablet 81 mgJump to med 81 mg, Oral, DAILY, First dose (after last modification) on Mon11/17/23 at 0900, Until Discontinued, Routine Group 2: POCT Fingerstick Glucose (CANCELED) Routine, EVERY 4 HOURS, First occurrence on Mon11/07/23 at 1140, Until Specified, Consider choosing EVERY 4 HOURS as frequency for: - Type 1 Diabetes - At least 24 hours after coming off an insulin drip - At least 24 hours after admission for DKA - Hypoglycemia unawareness - Patients who are otherwise unstable Select the same frequency for the correction bolus insulin order And insulin lispro (HumaLOG;Admelog) (100 unit/mL) subcutaneous injection vial 1-11 UnitsJump to med 1-11 Units, Subcutaneous, EVERY 4 HOURS SCHEDULED, First dose on Mon11/07/23 at 1200, Until Discontinued, CORRECTION BOLUS [1-11 Units] Custom Sliding Scale (BG in mg/dL): Correction factor 15 (1 unit of insulin is expected to drop the glucose 15mg/dL) BG 140 - 155 Give 1 unit BG 156 - 170 Give 2 units BG 171 - 185 Give 3 units BG 186 - 200 Give 4 units BG 201 - 215 Give 5 units BG 216 - 230 Give 6 units BG 231 - 245 Give 7 units BG 246 - 260 Give 8 units BG 261 - 275 Give 9 units BG 276 - 290 Give 10 units BG greater than 290, give 11 units and recheck BG in 2 hours. For 2hr recheck dose: If recheck BG remains greater than 240, GIVE 4 units. If recheck BG is less than 240 after two hours, give no insulin and resume prior schedule. DO NOT hold if NPO, unless specifically directed to do so by written order. Per Blood Glucose Monitoring Policy, re-check a BG of > 240 mg/dL in 2 hours , Routine Group 3: pantoprazole EC (Protonix) tablet 40 mgJump to med 40 mg, Oral, DAILY, First dose on Mon10/30/23 at 1330, Until Discontinued, DO NOT CRUSH OR OPEN If unable to take PO, may give IV, Routine Or pantoprazole (Protonix) injection 40 mgJump to med 40 mg, Intravenous, DAILY, First dose on Mon10/30/23 at 1330, Until Discontinued, Reconstitute with 10 mL of normal saline to a concentration of 4 mg/mL and inject slowly over 2 minutes. Reconstitute with 10 mL of normal saline to a concentration of 4 mg/mL and inject slowly over 2 minutes., Routine Group 4: glucose (Glutose) 40% oral geLJump to med 15-30 g of glucose, Buccal, EVERY 15 MIN PRN, Starting on Mon11/06/23 at 0914, Until 11/18/23 at 1631, Low blood sugar, For BG 50-70 mg/dL: [...] Intravenous, EVERY 15 MIN PRN, Starting on Mon11/06/23 at 0914, Until 11/18/23 at 1631, For BG 50-70 mg/dL: Oral treatment preferred: [...] Intramuscular, EVERY 15 MIN PRN, Starting on 11/06/23 at 0914, Until 11/18/23 at 1631, Low blood sugar, For BG 50-70 mg/dL: [...] before administering the next dose. , Routine Group 5: HYDROmorphone (Dilaudid) tablet 2 mgJump to med 2 mg, Oral, EVERY 4 HOURS PRN, Starting on 10/30/23 at 1302, Until 11/18/23 at 1631, Pain, moderate pain (4-6), For adults, may give in place of other agent(s) ordered for pain (7-10) at patient request. If multiple routes of administration ordered, oral route first line., Routine Or HYDROmorphone (Dilaudid) tablet 4 mgJump to med 4 mg, Oral, EVERY 4 HOURS PRN, Starting on 10/30/23 at 1302, Until 11/18/23 at 1631, Pain, severe pain (7-10), If multiple routes of administration ordered, oral route first line., Routine documented in this encounter Additional Health Concerns Infection Onset Date Last Indicated Resolved Time Rule Out C. difficile 11/10/2023 11/10/20232023 11:23 PM EDT documented as of this encounter Care Teams Size Worker Relationship 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
--- OUTSIDE RECORDS SUMMARY | 2024-01-04 13:16 | XMS_ITS | Encounter Summary ---
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, with long-term current use of insulin, unspecified laterality Olga Chavarria PA [facility] [address] [facility] [address] [place] [phone] Referral ID Status Reason Start Date Expiration Date Visits Requested Visits Authorized [id number] Authorized Consult, Test & Treat 08/04/2023 08/03/2024 1 1 Encounter Details Date Type Department Care Team (Late st Contact Info) Description 08/04/2023 [place] [address] Olga Chavarria PA [facility] [place] [address] 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 No 06/05/2023 Hunger Vital Sign Answer Date Recorded Within the past 12 months, y ou worried that your food would run out before you got the money to buy more. Never true 06/05/19 24 Within the past 12 months, t he food you bought just didn't last and you didn't have money to get more. Never true 06/05/2023 PRAPARE - Transportation Answer Date Re corded In the past 12 months, has l ack of transportation kept you from medical appointments or from getting medications? No 05/21 In the past 12 months, has l ack of transportation kept you from meetings, work, or from getting things needed for daily living? No 06/05/2023 Housing Stability Vital Sign Answer [...] place to sleep or slept in a fpc (including now)? No 06/05/2023 IPV Inpatient Questions Answer Date Recorded Does Anyone Try to Keep You From Having Contact with Others or Doing Things Outside Your Home? no 08/04/2023 Feels Threatened by Someone no 07/21 Feels Unsafe at Home or Work/School no 08/04/2023 Physical Signs of Abuse Present no 08/04/2023 Sex and Gender Information Value Date Recorded Sex Assigned at Not on file Gender Identity Not on file Sexual Orientation Not on file documented as of this encounter Plan of Treatment Upcoming Encounters Date Type Department Care Team (Late st Contact Info) Description 01/31/2024 9:30 AM EST Office Visit Neph[place] [address] Donavon Frey MD [facility] [place] [address] 02/06/2024 1:00 PM EST Office Visit Cardiology at [address] [address] Adrian Tello MD [facility] [address] 04/25/2024 10:30 AM EST [facility] [address] [place] [phone] Maria De Jesus Lange APRN [facility] [place] [address] Scheduled Referrals Name Type Priority Associated Diagnoses Orde r Schedule Referral to Endocrinology Outpatient Referral Routine 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
--- OUTSIDE RECORDS SUMMARY | 2024-01-04 13:16 | XMS_ITS | Encounter Summary ---
Author Organization [facility] Address [facility] [address] [place] [id number] Care Team Providers Care Grounds/Maintenance Specialist Name Role Phone Bandar Hahn MD Primary Care Provider [phone] Reason for Visit * Consultation (Routine) - Closed Specialty Diagnoses / Procedures Referred By Martha vasquez Referred To Contact Cardiac Surgery Diagnoses ASCVD (arteriosclerotic cardiovascular disease) Olga Chavarria PA [facility] [place] [address] Timi Dutta MD [facility] [place] [address] Referral ID Status Reason Start Date Expiration Date V isits Requested Visits Authorized [id number] Closed Consult, Test & Treat 09/18/2023 09/17/2024 1 1 Encounter Details Date Type Department Care Team (Late st Contact Info) Description 09/22/2023 2:00 PM EDT Office [place] [address] Timi Dutta MD [facility] [place] [address] Coronary artery disease involving chinik coronary artery of chinik heart without angina pectoris Social History Tobacco Use Types Packs/Day Years Used Date Smoking Tobacco: Former Cigarettes 1 10 Smokeless Tobacco: Never Alcohol Use Standard Drinks/Week Comments Not Currently 0 (1 standard drink = 0.6 oz pur e alcohol) [facility] Utilities Answer Date Recorded In the [...] place to sleep or slept in a prison (including now)? No 06/05/2023 DH IPV Inpatient Questions Answer Date Recorded Does Anyone Try to Keep You From Having Contact with Others or Doing Things Outside Your Home? no 09/22/2023 Feels Threatened by Someone no 03/2023 Feels Unsafe at Home or Work/School no 09/22/2023 Physical Signs of Abuse Present no 09/22/2023 Sex and Gender Information Value Date Recorded Sex Assigned at Not on file Gender Identity Not on file Sexual Orientation Not on file documented as of this encounter Last Filed Vital Signs Vital Sign Reading Time Taken Comments Blood Pressure 160/83 09/22/2023 2:16 PM EDT Pulse 69 09/22/2023 2:16 PM EDT Temperature - - Respiratory Rate - - Oxygen Saturation 99% 09/22/2023 2:16 PM EDT Inhaled Oxygen Concentration - - Weight 123.3 kg (271 lb 14.4 oz) 09/22/2023 2:16 PM EDT Height 177.8 cm (5' 10) 09/22/2023 2:16 PM EDT Body Mass Index 39.01 09/22/2023 2:16 PM EDT documented in this encounter Progress Notes * Timi Dutta MD - 09/22/2023 2:00 PM EDT To: GLENIS Ariza MD Re: Hayden Russo ( 1975) We met with Mr. Russo today to discuss issues surrounding the management of his atherosclerotic coronary disease Mr. Russo is a 47-year-old man whose history dates back to 2018 when he presented witha right coronary STEMI that was treated with primary PCI and intracoronary stent placement. He thenreturned with recurrent chest pain earlier this year, cardiac cath showed complete occlusion of hisstented right coronary which was reopened with a second layer of stents. He represented for completion revascularization in July and was found to have again closure of his right coronary system whichwas reopened and he was referred for open revascularization. In aggregate his current angiogram demonstrates several layers of stent in his right coronary with a small but potentially graftable PDA. His LAD has a 50% long mid lesion and there is a [...] a prior CVA or TIA. He has no known hepatic insufficiency. His past surgical history is [...] with Mr. Russo. He does wish to proceed. I think it is reasonable given his age to take this opportunity to try and revascularize him open. To allow time for maturation of his stent prior to discontinuation of his prasugrel this operation has been scheduled for . In the interim should they have anything further that I can provide please do not hesitate to contact my office. Best personal regards, Timi Dutta MD [phone] In aggregate 65 minutes were spent evaluating this patient, reviewing all images, counseling/examining the patient and communicating with other involved physicians. This was a complex high-level consult and making a decision to refer this patient for open revascularization. documented in this encounter Plan of Treatment Upcoming Encounters Date Type Department Care Team (Late st Contact Info) Description 01/31/2024 9:30 AM EST Office Visit Neph[place] [phone] Donavon Frey MD [facility] [place] [address] 02/06/2024 1:00 PM EST Office Visit Cardiology at [address] [phone] Adrian Tello MD [facility] [place] [address] 04/25/2024 10:30 AM EST Office Visit Sleep Center at [facility] [address] [place] [address] Maria De Jesus Lange APRN [facility] [place] [address] documented as of this encounter Results * XR Chest PA & Lateral (Generic) (09/22/2023 4:03 PM EDT) WORKSTATION ID [id number] RAD Anatomical Region Laterality Modality Chest N/A Digital Radiogra phy Impressions 09/22/2023 5:05 PM EDT Clear lungs I have personally reviewed the image(s) and the resident's interpretation and agree with the findings, Minesh Way MD at 09/22/2023 5:05 PM Thank you for letting us participate in the care of this patient. ??If you are a health care provider and have any questions regarding this report, please contact the number below. ??For patients who have questions please contact the health rn progressive care that requested your imaging first. ? Narrative 09/22/2023 5:05 PM EDT EXAMINATION: XR CHEST PA AND LATERAL (GENERIC) CLINICAL HISTORY: pre op CABG TECHNIQUE: PA and lateral views of the chest COMPARISON: None FINDINGS: No pleural effusion or pneumothorax. The lungs are clear. The cardiomediastinal silhouette is within normal limits. Procedure Note Minesh Way MD - 09/22/2023 EXAMINATION: XR CHEST PA AND LATERAL (GENERIC) CLINICAL HISTORY: pre op CABG TECHNIQUE: PA and lateral views of the chest COMPARISON: None FINDINGS: No pleural effusion or pneumothorax. The lungs are clear. The cardiomediastinal silhouette is within normal limits. IMPRESSION Clear lungs I have personally reviewed the image(s) and the resident's interpretationand agree with the findings, Minesh Way MD at 09/22/2023 5:05 PM Thank you for letting us participate in the care of this patient. If youare a health care provider and have any questions regarding this report,please contact the number below. For patients who have questions please contactthe health rn progressive care that requested your imaging first. Timi Dutta MD IMG DX ORDERABLES * (ABNORMAL) Urinalysis without microscopic (09/22/2023 3:15 PM EDT) Glucose, Urine Dipstick >=1000(Criti soraya) Negative mg/dL [facility] Comment: Urinalysis result NOT critical without a combination of Glucose greater than or equal to 500 mg/dL AND Ketones greater than or equal to 80 mg/dL Protein, Urine Dipstick >=300(A) Negative mg/dL [facility] Bilirubin, Urine Dipstick Negative Negative mg/dL [facility] Comment: Clinical correlation required for positive Urine Bilirubin results as false positive may occur with some drugs and drug related products. If a false positive is suspected a serum total bilirubin should be considered if clinically indicated. Urobilinogen, Urine Dipstick Normal Normal mg/dL [facility] pH, Urn (dipstick) 6.0 5.0 - 8.0 [facility] Blood, Urine Dipstick Trace(A) Negative mg/dL [facility] Ketone, Urine Dipstick Negative Negative mg/dL [facility] Nitrite, Urine Dipstick Negative Negative [facility] Leukocytes, Urine Dipstick Negative Negative [facility] Appearance, Urine Dipstick Clear Clear [facility] Specific [place] Urine Automated 1.027 1.005 - 1.030 [facility] Color, Urine Dipstick Yellow Yellow [facility] Urine 09/22/2023 3:15 PM EDT 09/22/2023 3:27 PM EDT Narrative Resulting Agency Comment Spec In Lab Timi Dutta MD URINE ORDERABLES Performing Organization Address [facility] Phone Number [facility] [place] [address] * Prothrombin Time (09/22/2023 2:57 PM EDT) Prothrombin Time 10.2 9.4 - 12.5 sec [facility] International Normalization Ratio 0.9 [facility] Comment: An INR <2.0 indicates adequate procoagulant activity for hemostasis in most patients without underlying bleeding disorders, though the INR may not adequately reflect hemostatic capacity in patients with liver disease and synthetic impairment. The recommended target INR range for therapeutic anticoagulation is 2.0 ? 3.0 for most applications, though lower and higher ranges may be appropriate depending on clinical circumstances. Blood 09/22/2023 2:57 PM EDT 09/22/2023 3:35 PM EDT Narrative Resulting Agency Comment Spec In Lab Timi Dutta MD HEMATOLOGY ORDERABL ES Performing Organization Address [facility] Phone Number [facility] [place] [address] * Hepatic Function Panel (09/22/2023 2:57 PM EDT) Protein, Total 6.8 6.1 - 8.0 g/dL [facility] Albumin 3.8 3.2 - 5.2 g/dL [facility] Aspartate Aminotransferase 19 0 - 39 unit/L [facility] Alanine Aminotransferase 18 0 - 55 unit/L [facility] Alkaline Phosphatase 97 40 - 130 unit/L [facility] Bilirubin, Total 0.3 0.2 - 1.3 mg/dL [facility] Bilirubin, Direct 0.1 0.0 - 0.3 mg/dL [facility] Blood 09/22/2023 2:57 PM EDT 09/22/2023 3:35 PM EDT Narrative Resulting Agency Comment Spec In Lab Timi Dutta MD CHEMISTRY ORDERABLE S [facility] [place] [place] [address] * (ABNORMAL) Basic Metabolic Panel (non-fasting) (09/22/2023 2:57 PM EDT) Glucose 230(H) 65 - 199 mg/dL [facility] Comment:Diabetes: >=200 mg/d L plus symptoms Blood Urea Nitrogen 34(H) 10 - 20 mg/dL [facility] Creatinine 2.83(H) 0.80 - 1.50 mg/dL [facility] Sodium 138 135 - 145 mmol/L [facility] Potassium 4.9 3.5 - 5.0 mmol/L [facility] Comment: Please note: ??Patients with WBC >100,000 may have falsely elevated Potassium levels. ??For accurate Potassium quantification in these patients send serum separator tube (gold top) for subsequent determinations. ??Contact the Clinical Chemistry Laboratory if there are any questions. Chloride 106 98 - 107 mmol/L [facility] Carbon Dioxide 22 22 - 31 mmol/L [facility] Anion Gap 10 5 - 15 mmol/L [facility] Calcium 9.3 8.5 - 10.5 mg/dL [facility] Est Glomerular Filtration Rate 27(L) >=60 mL/min/1. 73 m?? [facility] Comment: This patient's estimated [...] urine creatinine clearance. Assignment of CKD stage 1-5 for patients with an eGFR near the transition point between stages may be based on clinical assessment of muscle mass and symptoms in addition to eGFR. Blood 09/22/2023 2:57 PM EDT 09/22/2023 3:35 PM EDT Narrative Resulting Agency Comment Spec In Lab Timi Dutta MD CHEMISTRY ORDERABLE S Performing Organization Address City/[facility]/ZIP Co de Phone Number [facility] [place] [address] * Type and Screen Future Surgery, [facility] SAME DAY PROGRAM ONLY) (09/22/2023 2:57 PM EDT) ABORH Type O POSITIVE [facility] Patient BB History Not Found [facility] Expires at 2359 on: 11/02/2023 [facility] Ab Screen Interp Negative [facility] Blood 09/22/2023 2:57 PM EDT 09/22/2023 2:57 PM EDT Narrative Resulting Agency Comment Spec In Lab Timi Dutta MD BLOOD BANK LAB ORDE KALYAN Performing Organization Address [facility]/ZIP Co de Phone Number [facility] [place] [address] documented in this encounter Visit Diagnoses Diagnosis Coronary artery disease involving chinik coronary artery of chinik heart without angina pectoris Coronary artery disease involving chinik coronary artery of chinik heart without angina pectoris documented in this encounter Care Teams Grounds/Maintenance Specialist Relationship 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
--- OUTSIDE RECORDS SUMMARY | 2024-01-04 13:16 | XMS_ITS | Encounter Summary ---
Author Organization [facility] [place] [address] Care Team Providers Care Blood Bank Order Control Clerk Name Role Phone Bandar Hahn MD Primary Care Provider [phone] Encounter Details Date Type Department Care Team (Late st Contact Info) Description 10/09/2023 Telephone Cardiology at [address] [phone] Karen Landrum, RN Social History Tobacco Use Types Packs/Day Years Used Date Smoking Tobacco: Former Cigarettes 1 10 Smokeless Tobacco: Never Alcohol Use Standard Drinks/Week Comments Not Currently 0 (1 standard drink = 0.6 oz pur e alcohol) [facility] Utilities Answer Date Recorded In the past 12 months has e Wireless Environment, gas, oil, or water [employer] threatened to shut off services in your [...] place to sleep or slept in a fdc (including now)? No 06/05/2023 DH IPV Inpatient [...] Telephone Encounter - Karen Landrum RN - 10/30/2023 1:03 PM EDT This has been mailed to the patient Thank you José Luis * Telephone Encounter - Karen Landrum RN - 10/10/2023 9:37 AM EDT Outgoing call to patient- Left the following message on his voicemail from GLENIS Ariza- Thanks so much,will take care of this today and send to josé luis. Advised patient that it might be a week or so before he gets the letter in the mail. Asked that he speak with Admin staff if he needs to f/u. Provided phone contact for patient if he has further concerns. Karen Landrum RN, BSN Ambulatory Cardiology Department * Telephone Encounter - Karen Landrum RN - 10/09/2023 4:50 PM EDT Return call to patient. He is asking GLENIS Ariza to write a letter stating he will be having Cardiac by-pass surgeryon 10/30/23 and will need to have a Leave of absence from his job for minimum of 6 weeks. He needs this to help with his Child support obligation. Would like the note address to Whom it May Concern- and he would like the copy so he can send to the court. Return call to patient and left message advising that I have forwarded his request to GLENIS Freitas. Patient knows how to contact Cardiology office and understands he may do so at any time with further questions or concerns.\ Karen Landrum RN, BSN Ambulatory Cardiology Department Covering Cardiology Interventional team documented in this encounter Plan of Treatment Upcoming Encounters Date Type Department Care Team (Late st Contact Info) Description 01/31/2024 9:30 AM EST Office Visit Nephrology [place] [address] Donavon Frey MD [facility] [place] [address] 02/06/2024 1:00 PM EST Office Visit Cardiology at [address] [address] Adrian Tello MD [facility] [place] [address] 04/25/2024 10:30 AM EST Office Visit Sleep Center at [facility] [address] [place] [phone] Maria De Jesus Lange APRN [facility] [place] [address] documented as of this encounter Visit Diagnoses Not on filedocumented in this encounter Care Teams Blood Bank Order Control Clerk Relationship 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
--- OUTSIDE RECORDS SUMMARY | 2024-01-04 13:16 | XMS_ITS | Encounter Summary ---
Author Organization [facility] Address [facility] [place] [address] Care Team Providers Care Custom Marine Canvas Fabricator Name Role Phone Bandar Hahn MD Primary Care Provider [phone] Encounter Details Date Type Department Care Team (Latest Contact Info) Description 09/22/2023 Travel Social History Tobacco Use Types Packs/Day Years Used Date Smoking Tobacco: Former Cigarettes 1 10 Smokeless Tobacco: Never Alcohol Use Standard Drinks/Week Comments Not Currently 0 (1 standard drink = 0.6 oz pur e alcohol) [facility] Utilities Answer Date Recorded In the [...] in a prison (including now)? No 06/05/2023 IPV Inpatient Questions [...] AM EST Office Visit Nephrology [place] [address] Donavon Frey MD [facility] [place] [address] 02/06/2024 1:00 PM EST Office Visit Cardiology at [address] [phone] Adrian Tello MD [facility] [place] [address] 04/25/2024 10:30 AM EST Office Visit Sleep Center at [address] [address] Maria De Jesus Lange APRN [facility] [place] [address] documented as of this encounter Visit Diagnoses Not on filedocumented in this encounter Care Teams Custom Marine Canvas Fabricator Relationship 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
--- OUTSIDE RECORDS SUMMARY | 2024-01-04 13:16 | XMS_ITS | Encounter Summary ---
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 No 06/05/2023 DH IPV Inpatient [...] Sign Reading Time Taken Comments Blood Pressure 163/93 09/12/2023 1:42 PM EDT Pulse 70 09/12/2023 1:42 PM EDT Temperature - - Respiratory Rate - - Oxygen Saturation 98% 09/12/2023 1:42 PM EDT Inhaled Oxygen Concentration - - Weight 122.1 kg (269 lb 3.2 oz) 09/12/2023 1:42 PM EDT Height 177.8 cm (5' 10) 09/12/2023 1:42 PM EDT Body Mass Index 38.63 09/12/2023 1:42 PM EDT documented in this encounter Progress Notes * Olga Chavarria PA - 09/12/2023 1:40 PM EDT Images from the original note were not included. [facility] [place] [id number] CARDIOLOGY OUTPATIENT CLINIC VISIT [facility] Hayden Russo 09/11/2023 Referring Providers: MD Safia Sesay Kerrilynn C, MD [facility] [place] [address] [place] [address] Subjective: History: Hayden Albrecht is a 47 y.o. male patient presenting for an outpatient cardiology visit in follow up after recent cardiac catheterization. PMH significant for ASCVD s/p STEMI in 2018 s/p PCI to distal RCA mid LCX (Dr Patton [facility]), DM (HA1c11.23 May 2023), mildly reduced EF (51% 05/2023), HTN, CKD (last Cr 2.39 07/2023). He presented to the ED in May 2023 with new back pain and arm pain. He underwent catheterization here showing 100% RCA lesion and multiple discrete lesions in the LCX within stent consistent with ISR. He underwent PCI to the RCA with good result. He returned to the laborer cement gun placing 08/04/2023 for a stagedintervention to the LCX however the RCA was found to be closed following recent stenting for his STEMI in May. We then decided to wire and fix the proximal RCA instead. We placed a 3.5 x 24 mm Synergy and switched him from plavix to prasugrel, in case he is a plavix non responder. We did not fix the distal RPDA disease to leave targets for a possible future bypass, given his age and DM. He returns today and reports he is feeling terrible. He is short of breath, anxious, having angina,and severe PND. He recounts waking in the middle of the night gasping for air. He is having troublesleeping and feels anxious about his cardiac care. He has been taking his medications faithfully. We had a long discussion today regarding next steps re: his ASCVD: open revasc with CABG vs higher risk PCI. Review of systems: As above Past Medical History: has a past medical history of Diabetes and Hypertension. Family history: family history includes Coronary Artery Disease (age of onset: 62) in his father; Diabetes in his maternal grandfather and paternal grandfather; Hyperlipidemia in his father; Hypertension in his father. Social history: reports that he has quit smoking. His smoking use included cigarettes. He has a 10 pack-year smoking history. He has never used smokeless tobacco. He reports that he does not currently use alcohol after a past usage of about 7.0 standard drinks of alcohol per week. He reports that he does not use drugs. Surgical History: Past Surgical History: Procedure Laterality Date HERNIA REPAIR PRG CATH PLPA LEFT HEART CATH & ARTS W/INJ & ANGIO IMG S&I N/A 08/04/2023 CORONARY ANGIOGRAPHY; W [facility],POSSIBLE PCI (WRVU 5.6) performed by Azul Rowley MD at [facility] CATHLABS Objective: Physical Exam: Patient Vitals for the past 24 hrs: Patient Vitals for the past 24 hrs: Pulse BP SpO2 09/12/23 1342 70 (!) 163/93 98 % Pleasant male in NAD sitting in exam chair. BMI 38. Lungs CTAB without wheezes rales or rhonchi. Equal breath sounds bilaterally with good chest rise and expansion. No elevated JVP. No carotid bruits. No significant pedal edema or peripheral edema. CV RRR without murmurs rubs or gallops. Data: I have reviewed the pertinent outside records, laboratory data, and imaging studies. Labs: Lab Results Component Value Date WBC 10.4 (H) 08/04/2023 HGB 12.0 (L) 08/04/2023 HCT 41.3 08/04/2023 MCV 70.0 (L) 08/04/2023 PLATELET 273 08/04/2023 Lab Results Component Value Date NA 137 08/04/2023 K 4.6 08/04/2023 CL 103 08/04/2023 CO2 23 08/04/2023 BUN 38 (H) 08/04/2023 CREATININE 2.39 (H) 08/04/2023 GLUCOSE 147 06/07/2023 GLUCFASTING 211 (H) 08/04/2023 CALCIUM 9.2 08/04/2023 ESTGFR 33 (L) 08/04/2023 Lab Results Component Value Date ALT 49 10/12/2018 AST 88 (H) 10/12/2018 ALKPHOS 67 10/12/2018 BILITOT 0.6 10/12/2018 BILIDIR 0.1 10/12/2018 ALBUMIN 3.8 10/12/2018 PROT 6.8 10/12/2018 Lipid Panel Lab Results Component Value Date CHLPL 128 06/05/2023 HDL 25 06/05/2023 CHOLHDL 4.9 10/13/2018 TRIG 405 06/05/2023 LDLCHOL Not Calculated 06/05/2023 LDLDIRECT 50 06/05/2023 EKG 06/04/2023: Sinus rhythm Echo: Interpretation Summary Left ventricular systolic function is mildly reduced. The left ventricular ejection fraction is 51% by Rincon's biplane with regional wall motion abnormalities at the inferior and inferolateral jarrell (see linked PDF). The RV is moderately dilated with mild to moderately reduced systolic function. Normal LA size. There is mild to moderate tricuspid regurgitation. Other details as below. 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 Prior echo report from 09/2018 the same LVEF and inferior WMA, but RV was normal. Cardiac Catheterization 08/04/2023: Procedures: * Coronary Angiography * Left Heart Catheterization * Coronary Ultrasound * Coronary Angioplasty * Coronary Stent Insertion History Hayden Russo is a 47 year old man. He has hypertension. The patient's smoking status is Former. He has hypercholesterolemia managed with lipid therapy. The patient has diabetes managed by diet, insulin and oral medication. He has a prior history of coronary artery disease. The patient is status post a remote myocardial infarction. He had a coronary intervention procedure. Prior to the initiation of this procedure, the patient was designated as ASA Class III. The [facility] clinical frailty scale is 3: Managing Well. Diagnostic Tests: Prior Coronary Angiography: LV ejection fraction within 6 months is 51%. Electrocardiography: EKG was assessed by ECG. EKG was Abnormal. EKG showed ST Deviation >= 0.5 mm. Medications Prior to Procedure: Aspirin, Beta Yajaira and Statin. Indications for Diagnostic Cath: The priority of the diagnostic procedure was Elective. The indication for the laborer cement gun placing visit is worsening angina and stable known CAD. Chest pain symptom assessment was: Atypical Angina. Technique: A 6 SLFr sheath was inserted in the right radial artery utilizing the Seldinger technique. The left coronary artery was injected utilizing a 6Fr EBU 3.75 catheter. Left ventricular pressure was performed utilizing a 6Fr EBU 3.75 catheter. A 6Fr JR 4 catheter was used to inject the right coronary artery. Coronary angioplasty and coronary stent insertion were performed and the equipment utilized will be described in the intervention summary section. 10,000 units of heparin were administered. A total of 200cc of Omnipaque were opened, 126cc of Omnipaque were administered and 74cc of Omnipaque were wasted. Radiation: Fluoro time was 35.6 minutes, dose area product was 114.00 Gy/cm2 and air kerma was 2,166 mGY. See the case log for additional details. The patient received the following medications prior to and during the procedure: Unfractionated Heparin, Clopidogrel and Prasugrel. Hemodynamics: Left Heart Pressures Resting: Syst Diast EDP a v m Ao 127 72 93 LV 127 15 Coronary Angiography: Dominance: Right Left Main There was mild diffuse (<=25% stenosis) disease of the entire vessel segment of the left main artery. Left Anterior Descending There was mild diffuse (<=25% stenosis) disease of the entire vessel segment of the left anterior descending artery (LAD). Left Circumflex There was mild diffuse (<=25% stenosis) disease of the entire vessel segment of the left circumflex artery (LCX). The mid segment of the LCX had a multiple discrete 80% stenoses. This lesion represented in-stent restenosis following a prior coronary stent insertion. Right Coronary Artery There was a single discrete total occlusion of the proximal segment of the right coronary artery (RCA). There was no antegrade distal flow (FAUZIA Grade 0). Distal flow was via collaterals from the LAD and collaterals from the LCX. The mid segment of the RCA had a single discrete total occlusion. Distal flow was via collaterals from the LAD and collaterals from the LCX. There was no antegrade distal flow (FAUZIA Grade 0). There also was a single discrete total occlusion of the distal segment of the RCA. There was no antegrade distal flow (FAUZIA Grade 0). Distal flow was via collaterals from the LAD and collaterals from the LCX. Intravascular Imaging/Physiology: Intravascular Ultrasound was performed in the proximal RCA using a 6 Fr JR 4 guiding catheter and a 3.1 Fr Refinity 42 MHz catheter using auto 0.5 mm/sec pullback. Imaging was successful. Indication: IVUS performed for pre intervention planning, in-stent restenosis or thrombosis and neoathersclerosis. IVUS performed after pre-dilation. Findings Pre-Intervention: scattered plaque. These measurements were performed after pre-dilation of the lesion. Findings Post-Intervention: The post intervention minimal cross-sectional area was 8.00mm2. The stent was well expanded and apposed. Conclusions: stent/intervention appears optimized. Intravascular Ultrasound was performed in the distal RCA using a 6 Fr JR 4 guiding catheter and a 3.1 Fr Refinity 42 MHz catheter using auto 0.5 mm/sec pullback. Imaging was successful. Indication: IVUS performed for pre intervention planning, in-stent restenosis or thrombosis and neoathersclerosis. Findings Pre-Intervention: scattered plaque. Findings Post-Intervention: The post intervention minimal cross-sectional area was 6.00mm2. The stent was well expanded and apposed. Conclusions: stent/intervention appears optimized. Intravascular Ultrasound was performed in the mid RCA using a 6 Fr JR 4 guiding catheter and a 3.1 Fr Refinity 42 MHz catheter using auto 0.5 mm/sec pullback. Imaging was successful. Indication: IVUS performed for pre intervention planning, in-stent restenosis or thrombosis and neoathersclerosis. Findings Pre-Intervention: scattered plaque. Findings Post-Intervention: The post intervention minimal cross-sectional area was 5.30mm2. The stent was well expanded and apposed. Conclusions: stent/intervention appears optimized. Indication for Intervention: Coronary intervention was indicated for treatment of stable angina. The priority for the procedure was Elective. The NCDR indication for the procedure was Stable angina. LVEF within one week was 51%. Syntax Score was Intermediate. Staged PCI was performed for multivessel disease. Intervention Summary: Right Coronary Artery Proximal 100% Stent insertion was performed on the total occlusion in the proximal segment of the RCA. This was a drug eluting in-stent restenosis lesion. According to the ACC/AHA classification system, this lesion was a type C high risk lesion. Management of recurrent restenosis was the indication for stent insertion. This was the culprit lesion. A guidewire was placed across this lesion. Vessel flow pre intervention was FAUZIA 0. Lesion length was 30mm. This was a previously treated lesion on 06/04/2023. Stent insertion was accomplished through a 6 Fr. JR 4 guide. The lesion was predilated with a 3.00mm EUPHORA 12 MM balloon with a maximum inflation pressure of 18 atmospheres. A premounted 3.50 x 24 mm Synergy XD (MARIALUISA) was deployed with a maximum inflation pressure of 12 atmospheres. Following stent deployment, the lesion was dilated using a 4.00mm NC EUPHORA 12 MM balloon with a maximum inflation pressure of 14 atmospheres. The final outcome was defined as successful. A coronary arteriolar vasodilator was administered as part of the intervention on this lesion. There was no residual stenosis following this intervention. The final FAUZIA flow was 3. Mid 100% Angioplasty was performed on the total occlusion in the mid segment of the RCA. This was a drug eluting in-stent restenosis lesion. This lesion was designated a type C high risk lesion based on ACC/AHA classification system. This was the culprit lesion. A guidewire was placed across this lesion. Vessel flow pre intervention was FAUZIA 0. Lesion length was 20mm. This was a previously treated lesion on 06/04/2023. Angioplasty was accomplished through a 6 Fr JR 4 guide utilizing a Equinunk CB 15 MM balloon with a maximum size of 3.00mm and a maximum inflation pressure of 12 atmospheres. The final outcome was defined as successful. A coronary arteriolar vasodilator was administered as part of the intervention on this lesion. There was no residual stenosis following this intervention. The final FAUZIA flow was 3. Distal 100% Angioplasty was performed on the total occlusion in the distal segment of the RCA. This was a drug eluting in-stent restenosis lesion. According to the ACC/AHA classification system, this lesion was a type C high risk lesion. This was the culprit lesion. A guidewire was placed across this lesion. Vessel flow pre intervention was FAUZIA 0. Lesion length was 30mm. This was a previously treated lesion on 06/04/2023. Angioplasty was accomplished through a 6 Fr JR 4 guide utilizing a Equinunk CB 15 MM balloon with a maximum size of 2.50mm and a maximum inflation pressure of 14 atmospheres. The final outcome was defined as successful. A coronary arteriolar vasodilator was administered as part of the intervention on this lesion. There was no residual stenosis following this intervention. The final FAUZIA flow was 3. Vascular Access: Vascular Access Management: Mechanical Compression of the right radial artery access site was performed. Dual Antiplatelet (DAPT) Recommendations: Drug eluting stent (MARIALUISA) inserted for stable ischemic heart disease (SIHD). P2Y12 Loading dose Prasugrel 60 mg PO given in lab. Recommended anti-platelet/anti-thrombotic regimen: Start aspirin 81 mg daily now and continue for indefinitely. Start prasugrel 10 mg daily now and continue for 12 months then stop. These recommendations are made at the time of the intervention. Patient and provider preferences or a changing clinical situation may require modification of this regimen. Consult [facility] Interventional Cardiology for questions. The 1 year bleeding risk as calculated by the PRECISE DAPT score is Low risk. Conclusions: * Two vessel coronary artery disease (LCX and RCA) * Successful stent insertion of the proximal RCA lesion * Successful angioplasty of the distal RCA lesion * Successful angioplasty of the mid RCA lesion * See Dual Antiplatelet (DAPT) Recommendations above Assessment and Plan: Hayden Russo is a 47 y.o. male patient presenting for an outpatient cardiology visit for thefollowing cardiovascular conditions 1. ASCVD s/p RCA and LCX PCI 2018, STEMI May 2023 with RCA PCI, subsequent early restenosis of RCA stent with PCI to RCA July 2023, multiple discrete lesions in LCX MARIALUISA consistent with ISR 2. Hypertension 3. Uncontrolled DM with A1c 11.2 4. Dyslipidemia 5. CKD Stage 3b, recent Cr 2.39 This is a complex coronary situation in a relatively young man in his mid 40's. 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 He has severe T2DM (diagnosed in 2003) on insulin with a recent HA1c around 11 (last note from endocrinology 05/2023 recommending 25 units qd lantus, lispro moderate correction for BG > 140, 10 g carb lispro for meal and snack). He has a mildly reduced EF at 51%. He has recent severely abnormal kidney function starting as early as May 2023 during his STEMI with Cr function rising from 2.07 to 2.39 this year. His last normal kidney function was 0.97 in 2019. He has early restenosis of his RCA stent from 05/2023 when we cath'd him back in 07/2023. He has ISR of previously placed LCX stent. He also has at least > 50% stenosis of the mid LAD.He prefers open revascularization at this point. He is feeling quite unwell, orthopnea, PND, fatigue and dyspnea. No chest pain. He is at a high risk of dialysis following either PCI or CABG. I reviewed his films with Dr Dutta one of the cardiac surgeons here at [facility] who is planning to review his case and consider him as a potential candidate for bypass surgery. The final recommendations will be from him. If he turns out to be a poor candidate for surgery or the risk is too high, we can consider alternative options. - on DAPT; switched from plavix to prasugrel in July 2023 given severe ISR - on atorvastatin 80 mg QD - on pantoprazole 40 mg QD - on carvedilol 6.25 mg BID Medications: Current Outpatient Medications Medication Sig Dispense Refill prasugreL (Effient) 10 mg tablet Take 1 tablet by mouth daily. 90 tablet 3 carvediloL (Coreg) 6.25 mg tablet Take 1 tablet by mouth 2 times daily. 60 tablet 3 pantoprazole EC (Protonix) [address] tablet Take 1 tablet by mouth daily. 90 tablet 3 blood-glucose meter (FREESTYLE) Kit USE TO CHECK [...] TO THREE TIMES DAILY BEFORE MEALS 3 atorvastatin (LIPITOR) 80 mg Tablet Take 1 tablet by mouth every evening. 90 tablet 3 aspirin 81 mg Tablet, Chewable Take 81 mg by mouth daily. 30 tablet 3 nitroGLYcerin (NITROSTAT) 0.4 mg Tablet, Sublingual Place 1 tablet under the tongue every 5 minutesas needed for Chest pain. 90 tablet 12 No current facility-administered medications for this visit. Allergies: Patient has no known allergies. Olga Chavarria PA-C Interventional Cardiology/Structural Heart Team Pager [phone] 09/11/2023 CC: Badnar Hahn MD documented in this encounter Plan of Treatment Upcoming Encounters Date Type Department Care Team (Late st Contact Info) Description 01/31/2024 9:30 AM EST Office Visit [place] [phone] Donavon Frey MD [facility] [place] [address] 02/06/2024 1:00 PM EST Office Visit Cardiology at [address] [phone] Adrian Tello MD [facility] [place] [address] 04/25/2024 10:30 AM EST Office Visit Sleep Center at [facility] [address] [phone] Maria De Jesus Lange APRN [facility] [place] [address] documented as of this encounter Results * (ABNORMAL) Comprehensive metabolic panel (non-fasting) (10/30/2023 6:57 AM EDT) Glucose 70 65 - 99 mg/dL 10/30/2023 7:31 AM [facility] Comment: Fasting Glucose Interpretive Criteria: Normal: 65-99 mg/dL ?? Prediabetes: 100-125 mg/dL ?? Consistent with Diabetes Mellitus: > or = 126 mg/dL ?? Classification and Diagnosis of Diabetes: Standards of Care in Diabetes - 2022. Diabetes Care 202; 46:S19. Fasting is defined as no caloric intake for at least 8 hours. Blood Urea Nitrogen 41(H) 10 - 20 mg/dL 10/30/2023 7:31 AM [facility] Creatinine 2.94(H) 0.80 - 1.50 mg/dL 10/30/2023 7:31 AM [facility] Sodium 142 135 - 145 mMol/L 10/30/2023 7:31 AM [facility] Potassium 4.4 3.5 - 5.0 mMol/L 10/30/2023 7:31 AM [facility] Chloride 107 98 - 107 mMol/L 10/30/2023 7:31 AM [facility] Carbon Dioxide 24 22 - 31 mMol/L 10/30/2023 7:31 AM [facility] Anion Gap 11 5 - 15 mMol/L 10/30/2023 7:31 AM [facility] Calcium 8.6 8.5 - 10.5 mg/dL 10/30/2023 7:31 AM [facility] Protein, Total 6.2 6.1 - 8.0 g/dL 10/30/2023 7:31 AM [facility] Albumin 3.2 3.2 - 5.2 g/dL 10/30/2023 7:31 AM [facility] Aspartate Aminotransferase 16 <=39 unit/L 10/30/2023 7:31 AM [facility] Alanine Aminotransferase 13 0 - 55 unit/L 10/30/2023 7:31 AM [facility] Alkaline Phosphatase 77 40 - 130 unit/L 10/30/2023 7:31 AM [facility] Bilirubin, Total 0.3 <=1.3 mg/dL 10/30/2023 7:31 AM [facility] Est Glomerular Filtration Rate - Male 26 mL/min/1. 73 m?? 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
--- OUTSIDE RECORDS SUMMARY | 2024-01-04 13:16 | XMS_ITS | Encounter Summary ---
Author Organization [facility] Address [facility] [place] [address] Care Team Providers Care Data Management Associate Name Role Phone Minesh Wagner Primary Care Provider + Reason for Visit * Reason Comments Medication Refill Encounter Details Date Type Department Care Team ([facility] Contact Info) Description 10/27/2023 Telephone [place] [address] Karthikeyan Chu PA [facility] [place] [address] Medication Refill Social History Tobacco Use Types Packs/Day Years Used Date Smoking Tobacco: Former Cigarettes 1 10 Smokeless Tobacco: Never Alcohol Use Standard Drinks/Week Comments Not Currently 0 (1 standard drink = 0.6 oz pur e alcohol) [facility] Utilities Answer Date Recorded In the past 12 months has [employer], gas, oil, or water [employer] threatened to shut off services in your [...] place to sleep or slept in a custodial (including now)? No 06/05/2023 Housing Stability Vital Sign Answer Bertram e Recorded In the last 12 months, was t here a time when you were not able to pay the mortgage or rent on time? No 12/11/2023 In the past 12 months, how m any times have you moved where you were living? 0 12/11/2023 At any time in the past 12 m [facility], were you homeless or living in a custodial (including now)? No 12/11/2023 IPV Inpatient Questions [...] encounter Miscellaneous Notes * Telephone Encounter - Lynn Trimble [facility] - 10/27/2023 11:35 AM EDT Prescription Renewal Request Name: Hayden Tremaine Karan : 1975 Prescription(s) Requested: Requested Prescriptions Refused Prescriptions Disp Refills carvediloL (Coreg) 6.25 mg tablet [Pharmacy Med Name: Carvedilol 6.25 MG Oral Tablet] 60 tablet 0 Sig: Take 1 tablet by mouth twice daily Request not handled by Centralized Refill Team, primary. Status of request: Refused No Known Allergies Lynn Trimble CMA 10/27/23 11:35 AM documented in this encounter Plan of Treatment Upcoming Encounters Date Type Department Care Team (Late st Contact Info) Description 01/31/2024 9:30 AM EST Office Visit Nephrology [place] [address] Donavon Frey MD [facility] [address] 02/06/2024 1:00 PM EST Office Visit Cardiology at [address] [phone] Adrian Tello MD [facility] [place] [address] 04/25/2024 10:30 AM EST Office Visit Sleep Center at [address] [address] Maria De Jesus Lange APRN [facility] [place] [address] documented as of this encounter Visit Diagnoses Diagnosis Hypertension, unspecified type ST elevation myocardial infarction (STEMI), unspecified artery documented in this encounter Additional Health Concerns Infection Onset Date Last Indicated Resolved Time Rule Out C. difficile 11/10/2023 11/10/20232023 11:23 PM EDT documented as of this encounter Care Teams Data Management Associate Relationship Specialty Start Date End Date Minesh Wagner PA [facility] [place] [address] PCP - General Internal Medicine 11/21/23 documented as of this encounter
--- OUTSIDE RECORDS SUMMARY | 2024-01-04 13:16 | XMS_ITS | Encounter Summary ---
Author Organization [facility] Address [facility] [place] [address] Care Team Providers Care Subpoena Server Name Role Phone Bandar Hahn MD Primary Care Provider [phone] Reason for Visit * Reason Comments Medication Refill Carvedilol Encounter Details Date Type Department Care Team (Late st Contact Info) Description 09/24/2023 [place] [address] Olga Chavarria PA [facility] [place] [address] Hypertension, unspecified type; ST elevation myocardial infarction (STEMI), unspecified artery Social History Tobacco Use Types Packs/Day Years Used Date Smoking Tobacco: Former Cigarettes 1 10 Smokeless Tobacco: Never Alcohol Use Standard Drinks/Week Comments Not Currently 0 (1 standard drink = 0.6 oz pur e alcohol) [facility] Utilities Answer Date Recorded In the past 12 months has [employer], gas, oil, or water company threatened [...] place to sleep or slept in a senior care (including now)? No 06/05/2023 IPV Inpatient Questions [...] AM EST Office Visit [place] [address] Donavon Frey MD [facility] [place] [address] 02/06/2024 1:00 PM EST Office Visit Cardiology at [address] [phone] Adrian Tello MD [facility] [place] [address] 04/25/2024 10:30 AM EST Office Visit Sleep Center at [facility] [address] [place] [address] Maria De Jesus Lange, RAMONA [facility] [place] [address] documented as of this encounter Visit Diagnoses Diagnosis Hypertension, unspecified type ST elevation myocardial infarction (STEMI), unspecified artery documented in this encounter Care Teams Subpoena Server Relationship 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
--- OUTSIDE RECORDS SUMMARY | 2024-01-04 13:16 | XMS_ITS | Encounter Summary ---
Author Organization [facility] Address [facility] [place] [address] Care Team Providers Care Crop Farmers Name Role Phone Bandar Hahn MD Primary Care Provider [phone] Encounter Details Date Type Department Care Team (Late st Contact Info) Description 09/22/2023 3:00 PM EDT Clinical Support Same Day at [facility] [place] [address] Social History Tobacco Use Types Packs/Day Years Used Date Smoking Tobacco: Former Cigarettes 1 10 Smokeless Tobacco: Never Alcohol Use Standard Drinks/Week Comments Not Currently 0 (1 standard drink = 0.6 oz pur e alcohol) [facility] Utilities Answer Date Recorded In the past 12 months has e electric, gas, oil, or water [employer] threatened to shut off services in your [...] in a intermediate (including now)? No 06/05/2023 DH IPV Inpatient [...] on file documented as of this encounter Patient Instructions * Patient Instructions* Martha Saucedo RN - 09/22/2023 3:00 PM EDT Images from the original note were not included. U100 Glargine (Basaglar, Lantus, Semglee): Take usual morning dose N/A Reduce dinner/bedtime dose by 20% on 10/29/23. Type 2 DM reduce dose by 50% on day of surgery N/A Lispro (Admelog, Humalog): Take usual dose before meals on 10/29/23. No Bedtime dose on 10/29/23 No mealtime insulin while not eating 10/30/23. Okay to give correction insulin if blood glucose > 200 per sliding scale every 4 hours as needed Hold Losartan (Cozaar), vitamins, supplements and herbals on day of surgery. Prasugrel stop 10/22/23 documented in this encounter Progress Notes * Martha Saucedo RN - 09/22/2023 3:00 PM EDT Images from the original note were not included. Anesthesia questionnaire reviewed with patient and Alina while in [facility]. Pt has tolerated anesthesia in the past. Pre- operative instruction booklet reviewed with patient. Reviewed importance of pain control and cough and deep breathing exercise during the post-operative period. Instructed patient on use of Hibiclens soap to shower with the night before surgery or the morning of surgery. Pt verbalizes good understanding of all information reviewed. Pt received Cardiac Surgery folder. Pt to bring booklet in overnight bag. PLAN Testing: type and screen, other labs, sent to for CXR Special medication instructions: see below Procedure date: 10-30-23 Dr Dutta U100 Glargine (Basaglar, Lantus, Semglee): takes at night Take usual morning dose N/A Reduce dinner/bedtime dose by 20% on 10/29/23. Type 2 DM reduce dose by 50% on day of surgery N/A Lispro (Admelog, Humalog): takes at meal time Take usual dose before meals on 10/29/23. No Bedtime dose on 10/29/23 No mealtime insulin while not eating 10/30/23. Okay to give correction insulin if blood glucose > 200 per sliding scale every 4 hours as needed Hold Losartan (Cozaar), vitamins, supplements and herbals on day of surgery. Prasugrel stop 10/22/23 documented in this encounter Plan of Treatment Upcoming Encounters Date Type Department Care Team (Late st Contact Info) Description 01/31/2024 9:30 AM EST Office Visit [place]ph[place] [address] Donavon Frey MD [facility] [place] [address] 02/06/2024 1:00 PM EST Office Visit Cardiology at [address] [phone] Adrian Tello MD [facility] [place] [address] 04/25/2024 10:30 AM EST Office Visit Sleep Center at [facility] [address] [place] [address] Maria De Jesus Lange APRN [facility] [place] [address] documented as of this encounter Visit Diagnoses Not on filedocumented in this encounter Care Teams Crop Farmers Relationship 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
--- OUTSIDE RECORDS SUMMARY | 2024-01-04 13:16 | XMS_ITS | Encounter Summary ---
Author Organization [place] [address] Care Team Providers Care Video Tape Duplicator Name Role Phone Bandar Hahn MD Primary Care Provider [phone] Encounter Details Date Type Department Care Team (Latest Contact Info) Description 09/22/2023 2:45 PM EDT [place] [phone] Coronary artery disease involving [place] coronary artery of [place] heart without angina pectoris Social History Tobacco Use Types Packs/Day Years Used Date Smoking Tobacco: Former Cigarettes 1 10 Smokeless Tobacco: Never Alcohol Use Standard Drinks/Week Comments Not Currently 0 (1 standard drink = 0.6 oz pur e alcohol) [facility] Utilities Answer Date Recorded In the past 12 months has e [employer], gas, oil, or water [employer] threatened to shut off services in your [...] place to sleep or slept in a care home (including now)? No 06/05/2023 IPV Inpatient Questions [...] AM EST Office Visit [place] [address] Donavon Frey MD [facility] [place] [address] 02/06/2024 1:00 PM EST Office Visit Cardiology at [address] [phone] Adrian Tello MD [facility] [place] [address] 04/25/2024 10:30 AM EST Office Visit Sleep Center at [facility] [address] [place] [phone] Maria De Jesus Lange APRN [facility] [place] [address] Pending Results Name Type Priority Associated Diagnoses Date /Time ABORH Recheck Status Blood Bank Routine 03/2023 2:57 PM EDT documented as of this encounter Procedures Procedure Name Priority Date/Time Associated Diagnosis Comments URINE HOLD Routine 09/22/2023 3:15 PM EDT URINALYSIS DIPSTICK Routine 09/22/2023 3 :15 PM EDT Coronary artery disease involving [place] coronary artery of [place] heart without angina pectoris TYPE AND SCREEN VALIDITY Routine 09/22/2023 2:57 PM EDT ABORH RECHECK STATUS Routine 09/22/2023 2:57 PM EDT HEMOGRAM Routine 09/22/2023 2:57 PM EDT Coronary artery disease involving [place] coronary artery of [place] heart without angina pectoris DIFFERENTIAL, AUTOMATED Routine 09/22/2023 2:57 PM EDT Coronary artery disease involving [place] coronary artery of [place] heart without angina pectoris TYPE AND SCREEN, SDP (FUTURE SURGERY, [facility] SAME DAY PROGRAM ONLY) Routine 09/22/2023 2:57 PM EDT Coronary artery disease involving [place] coronary artery of [place] heart without angina pectoris PROTHROMBIN TIME Routine 09/22/2023 2:57 PM EDT Coronary artery disease involving [place] coronary artery of [place] heart without angina pectoris CBC (WITH DIFF) Routine 09/22/2023 2:57 PM EDT Coronary artery disease involving [place] coronary artery of [place] heart without angina pectoris HEPATIC FUNCTION PANEL Routine 09/22/2023 2:57 PM EDT Coronary artery disease involving [place] coronary artery of [place] heart without angina pectoris BASIC METABOLIC PANEL Routine 09/22/2023 2:57 PM EDT Coronary artery disease involving [place] coronary artery of [place] heart without angina pectoris documented in this encounter Results * Urine Hold (09/22/2023 3:15 PM EDT) Hold, Urine Sample in lab. [facility] Urine Urine / Unknown 09/22/2023 3 :15 PM EDT 09/22/2023 3:[address] [facility] Laboratory URINE ORDERABLES [facility] [place] [address] * (ABNORMAL) Urinalysis without microscopic (09/22/2023 3:15 PM EDT) Glucose, Urine Dipstick >=1000(Criti soraya) Negative mg/dL [facility] Comment: Urinalysis result NOT critical without a combination of Glucose greater than or equal to 500 mg/dL AND Ketones greater than or equal to 80 mg/dL Protein, Urine Dipstick >=300(A) Negative mg/dL [facility] Bilirubin, Urine Dipstick Negative Negative mg/dL [facility] Comment: Clinical correlation required for positive Urine Bilirubin results as false positive may occur with some drugs and drug related products. If a false positive is suspected a serum total bilirubin should be considered if clinically indicated. Urobilinogen, Urine Dipstick Normal Normal mg/dL [facility] pH, Urn (dipstick) 6.0 5.0 - 8.0 [facility] Blood, Urine Dipstick Trace(A) Negative mg/dL [facility] Ketone, Urine Dipstick Negative Negative mg/dL [facility] Nitrite, Urine Dipstick Negative Negative [facility] Leukocytes, Urine Dipstick Negative Negative [facility] Appearance, Urine Dipstick Clear Clear [facility] Specific [place] Urine Automated 1.027 1.005 - 1.030 [facility] Color, Urine Dipstick Yellow Yellow [facility] Urine 09/22/2023 3:15 PM EDT 09/22/2023 3:27 PM EDT Narrative Resulting Agency Comment Spec In Lab Timi Dutta MD URINE ORDERABLES [facility] [place] [address] * Type and Screen Validity (09/22/2023 2:57 PM EDT) T&S only valid at [facility] Comment:This Type and Screen result is only valid at the [facility] Blood 09/22/2023 2:57 PM EDT 09/22/2023 3:15 PM EDT Narrative Resulting Agency Comment Spec In Lab Timi Dutta MD BLOOD BANK LAB ORDE KALYAN Performing Organization Address City/[facility]/ZIP Co de Phone Number [facility] [place] [address] * (ABNORMAL) Differential, Automated (09/22/2023 2:57 PM EDT) Neutrophil % 67.7 % [facility] Neutrophil Absolute 6.10 1.70 - 6.10 x10(3)/mc L [facility] Lymph % 20.7 % [facility] Lymphocytes Abs 1.9 0.9 - 3.2 x10(3)/mc L [facility] Monocyte % 7.4 % [facility] Monocyte Abs 0.7 0.3 - 0.9 x10(3)/mc L [facility] Eos % 2.7 % [facility] Eosinophils Abs 0.2 0.0 - 0.4 x10(3)/mc L [facility] Basophil % 0.9 % [facility] Baso Absolute 0.1 0.0 - 0.1 x10(3)/mc L [facility] Immature Gran % 0.60 % [facility] Comment: Immature granulocytes(IG's)percentage and absolute count will include metamyelocytes, myelocytes, and promyelocytes. Blood smears from CBCs yielding IG's will be scanned manually for concordance. If this scan disagrees with the automated IG or if promyelocytes are noted, a manual differential will be performed. Immature Gran Absolute 0.05(H) 0.00 - 0.04 x10(3)/ L [facility] Blood 09/22/2023 2:57 PM EDT 09/22/2023 3:35 PM EDT Narrative Resulting Agency Comment Spec In Lab Timi Dutta MD HEMATOLOGY ORDERABL ES [facility] [place] [address] * (ABNORMAL) Hemogram (09/22/2023 2:57 PM EDT) White Blood Cell 9.0 4.0 - 9.5 x10(3)/ L [facility] Red Blood Cell 6.11(H) 4.58 - 5.54 x10(6)/[facility] Hemoglobin 12.4(L) 13.7 - 16.5 g/dL [facility] Hematocrit 42.5 40.5 - 48.5 % [facility] Mean Cell Volume 69.6(L) 82.9 - 93.[address] [facility] Mean Cell Hemoglobin 20.3(L) 27.5 - 32.[address] [facility] Mean Cell Hemoglobin Concentration 29.2(L) 32.0 - 35.7 g/dL [facility] Platelet 279 145 - 357 x10(3)/ L [facility] RDW Standard Deviation 45.9(H) 36.0 - 45.[address] [facility] RDW coefficient of variation 19.8(H) 11.4 - 13.8 % [facility] Mean Platelet Volume 11.2 7.6 - 12.[address] [facility] NRBC% auto 0.0 % [facility] NRBC Absolute 0.000 0.000 - 0.000 x10(3)/ L [facility] Blood 09/22/2023 2:57 PM EDT 09/22/2023 3:35 PM EDT Narrative Resulting Agency Comment Spec In Lab Timi Dutta MD HEMATOLOGY ORDERABL ES Performing Organization Address [facility] de Phone Number [facility] [place] [address] * Prothrombin Time (09/22/2023 2:57 PM EDT) Prothrombin Time 10.2 9.4 - 12.[address] [facility] International Normalization Ratio 0.9 [facility] Comment: An INR <2.0 indicates adequate [...] MD HEMATOLOGY ORDERABL ES Performing Organization Address [facility] de Phone Number [facility] [place] [address] * Hepatic Function Panel (09/22/2023 2:57 PM EDT) Protein, Total 6.8 6.1 - 8.0 g/dL [facility] Albumin 3.8 3.2 - 5.2 g/dL [facility] Aspartate Aminotransferase 19 0 - 39 unit/L [facility] Alanine Aminotransferase 18 0 - 55 unit/L [facility] Alkaline Phosphatase 97 40 - 130 unit/L [facility] Bilirubin, Total 0.3 0.2 - 1.3 mg/dL [facility] Bilirubin, Direct 0.1 0.0 - 0.3 mg/dL [facility] Blood 09/22/2023 2:57 PM EDT 09/22/2023 3:35 PM EDT Narrative Resulting Agency Comment Spec In Lab Timi Dutta MD CHEMISTRY ORDERABLE S [facility] [place] [address] * (ABNORMAL) Basic Metabolic Panel (non-fasting) (09/22/2023 2:57 PM EDT) Glucose 230(H) 65 - 199 mg/dL [facility] Comment:Diabetes: >=200 mg/d L plus symptoms Blood Urea Nitrogen 34(H) 10 - 20 mg/dL [facility] Creatinine 2.83(H) 0.80 - 1.50 mg/dL [facility] Sodium 138 135 - 145 mmol/L [facility] Potassium 4.9 3.5 - 5.0 mmol/L [facility] Comment: Please note: ??Patients with WBC >100,000 may have falsely elevated Potassium levels. ??For accurate Potassium quantification in these patients send serum separator tube (gold top) for subsequent determinations. ??Contact the Clinical Chemistry Laboratory if there are any questions. Chloride 106 98 - 107 mmol/L [facility] Carbon Dioxide 22 22 - 31 mmol/L [facility] Anion Gap 10 5 - 15 mmol/L [facility] Calcium 9.3 8.5 - 10.5 mg/dL [facility] Est Glomerular Filtration Rate 27(L) >=60 mL/min/1. 73 m?? [facility] Comment: This patient's estimated GFR [...] MD CHEMISTRY ORDERABLE S Performing Organization Address City/[facility]/ZIP Co de Phone Number [facility] [place] [address] * Type and Screen Future Surgery, [facility] SAME [facility] ONLY) (09/22/2023 2:57 PM EDT) ABORH Type O POSITIVE [facility] Patient BB History Not Found [facility] Expires at [id number] on: 11/02/2023 [facility] Ab Screen Interp Negative [facility] Blood 09/22/2023 2:57 PM EDT 09/22/2023 2:57 PM EDT Narrative Resulting Agency Comment Spec In Lab Timi Dutta MD BLOOD BANK LAB ORDE RABLES Performing Organization Address [facility] Co de Phone Number [facility] [place] [address] documented in this encounter Visit Diagnoses Diagnosis Coronary artery disease involving port gra[place] coronary artery of [place] heart without angina pectoris documented in this encounter Care Teams Video Tape Duplicator Relationship 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
--- OUTSIDE RECORDS SUMMARY | 2024-01-04 13:16 | XMS_ITS | Encounter Summary ---
Author Organization [facility] Address [facility] [place] [address] Care Team Providers Care Trash Collector Name Role Phone Bandar Hahn MD Primary Care Provider [phone] Encounter Details Date Type Department Care Team (Latest Contact Info) Description 09/12/2023 Travel Social History Tobacco Use Types Packs/Day Years Used Date Smoking Tobacco: Former Cigarettes 1 10 Smokeless Tobacco: Never Alcohol Use Standard Drinks/Week Comments Not Currently 7 (1 standard drink = 0.6 oz pur e alcohol) rarely [facility] Utilities Answer Date Recorded In the [...] in a usp (including now)? No 06/05/2023 IPV Inpatient Questions [...] AM EST Office Visit Nephrology [place] [phone] Donavon Frey MD [facility] [place] [address] 02/06/2024 1:00 PM EST Office Visit Cardiology at [address] [address] Adrian Tello MD [facility] [place] [address] 04/25/2024 10:30 AM EST Office Visit Sleep Center at [address] [place] [address] Maria De Jesus Lange APRN [facility] [place] [address] documented as of this encounter Visit Diagnoses Not on filedocumented in this encounter Care Teams Trash Collector Relationship 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
--- OUTSIDE RECORDS SUMMARY | 2024-01-04 13:16 | XMS_ITS | Encounter Summary ---
[place] [address] Care Team Providers Care Professional Programmer Analyst Name Role Phone Bandar Hahn MD Primary Care Provider [phone] Reason for Visit * Auth/Cert (Routine) Specialty Diagnoses / Procedures Referred By Martha vasquez Referred To Contact Diagnoses ASCVD (arteriosclerotic cardiovascular disease) ASCVD Procedures PRO ENDOSCOPY W/VIDEO-ASST VEIN HARVEST, CABG PRO CABG, ARTERIAL, SINGLE PRO CABG, ARTERY-VEIN, TWO ENDOSCOPIC HARVEST VEIN(S) FOR CABG (WRVU 0.31) @CABG, USING ARTERIAL GRAFT;SINGLE ARTERIAL GRAFT (WRVU 33.75) @CABG, TWO VENOUS GRAFTS & ARTERIAL GRAFT (WRVU 7.93) Timi Person MD [facility] [place] [address] [facility] Referral ID Status Reason Start Date Expiration Date Visits Re quested Visits Authorized [id number] 1 1 Encounter Details Date Type Department Care Team (Late st Contact Info) Description 10/30/2023 7:30 AM EDT - 10/30/2023 1:22 PM EDT [place] [address] Timi Person MD [facility] CARDIOTHORACIC SURGERY [place], [place] [id number] ENDOSCOPIC HARVEST VEIN(S) FOR CABG (WRVU 0.31) Social History Tobacco Use Types Packs/Day Years Used Date Smoking Tobacco: Former Cigarettes 1 10 Smokeless Tobacco: Never Alcohol Use Standard Drinks/Week Comments Not Currently 0 (1 standard drink = 0.6 oz pure alcohol) Pt reports I haven't had a beer in months [facility] Utilities Answer Date Recorded In the past 12 months has th e [employer], gas, oil, or water company threatened to [...] place to sleep or slept in a alf (including now)? No 06/05/2023 DH IPV Inpatient [...] Sign Reading Time Taken Comments Blood Pressure 149/85 10/30/2023 7:01 AM EDT Pulse 75 10/30/2023 1:00 PM EDT Temperature 34.9 ??C (94.8 ??F) 10/30/2023 1:00 PM ED T Respiratory Rate 20 10/30/2023 1:00 PM EDT Oxygen Saturation 99% 10/30/2023 1:00 PM EDT Inhaled Oxygen Concentration - - Weight 128.9 kg (284 lb 3.2 oz) 10/30/2023 6:59 AM EDT Height 177.8 cm (5' 10) 10/30/2023 6:59 AM EDT Body Mass Index 37.02 10/30/2023 6:59 AM EDT documented in this encounter Discharge Summaries * Anthony Diana PA - 11/18/2023 10:13 AM EDT Inpatient - Discharge Summary Patient Name: Hayden Russo Patient Age: 47 y.o. Birthdate: 1975 Language: Belgian Race: White Ethnicity: Not nor Admit Date: 10/30/2023 Discharge Date: 11/18/23 Attending Physician: Timi Person MD Follow-up Recommendations for Providers: Please continue routine management of cardiovascular risk factors including blood pressure, lipids,glucose, etc. Please note any changes to medications. Patient to follow up with PCP, Bandar Hahn MD, in 1-2 weeks. Patient to follow up with Knitting Machine Operator Patient to follow up with Cardiac Surgeon, Dr. Timi Person, with a chest x-ray and EKG. Patient to follow up with Nephrology, 11/22 at 4:30pm. Inpatient Provider Contact Information: [facility] Section of Cardiac Surgery [facility] [place] [address] FAX [phone] Discharge Diagnoses (Hospital Problems) Primary Diagnoses: CAD [...] 5.6) performed by Azul Rowley MD at [facility] CATHLABS PRO CABG, ARTERIAL, SINGLE N/A 10/30/2023 @CABG, USING ARTERIAL GRAFT;SINGLE ARTERIAL GRAFT (WRVU 33.75) performed by Timi Person MD at [facility] MAIN OR PRO CABG, ARTERY-VEIN, TWO N/A 10/30/2023 @CABG, TWO VENOUS GRAFTS & ARTERIAL GRAFT (WRVU 7.93) performed by Timi Person MD at [facility] MAIN OR PRO ENDOSCOPY W/VIDEO-ASST VEIN HARVEST, CABG N/A 10/30/2023 ENDOSCOPIC HARVEST VEIN(S) FOR CABG (WRVU 0.31) performed by Timi Person MD at [facility] MAIN OR Prior To Admission Medications Medications Prior to Admission Medication Sig Dispense Refill Last Dose [DISCONTINUED] carvediloL (Coreg) 6.25 mg tablet Take 1 tablet by mouth twice daily 60 tablet 0 10/30/2023 [DISCONTINUED] losartan (Cozaar) 25 mg tablet Take 1 tablet by mouth daily. 90 tablet 3 10/29/2023 [id number] prasugreL (Effient) 10 mg tablet Take 1 [...] Hospital Course: Hayden Russo was admitted to [facility] on 10/30/2023 via the Same DayProgram. [...] via a Dobhoff tube which he tolerated. EMERGENCY PLANNER was consulted following extubation and he was [...] Timi Person and/or the Cardiac Surgery Physician Safety Spec Team may be reached at . Weight: [...] Dr. Timi Person. You may use a [place] Track or treadmill but avoid any pulling [...] friends, go to a movie, go to baptism, etc. Heavy activities: No hunting, skiing, jogging, snow shoveling, snowmobiling, lawn mowing, swimming,golf or tennis until after your return appointment with the surgeon. Do not ride motorcycles, ATSajan'stractors or horses. Avoid the use of a [...] should resume a low fat, low cholesterol, [place] Heart Association Diet/Diabetic diet/Renal diet. Driving: No [...] while being managed by your PCP and/or Knitting Machine Operator. For future medication refills, please refer to your PCP and/or Knitting Machine Operator after your discharge from our service. Thank you REMOVE CHEST TUBE SUTURES ON OR AFTER 11/20/23 Home oxygen therapy: N/A Follow up appointments: You should follow up with your PCP, Bandar Hahn MD, in 1-2 weeks. Our office will schedule an appointment with your Knitting Machine Operator. You have an appointment with your Cardiac Surgeon, Dr. Timi Person, with a chest x-ray and EKG before your appointment. You have an appointment with Nephrology, Dr. Frey, 11/22 at 4:30pm. Cardiac Rehabilitation: Hayden Russo was seen today regarding participation in the outpatient Phase 2 Cardiac Rehabilitation at [facility]. The patient agrees to a referral to this program. The referral will be sent at discharge and the patient should be contacted by the Program within 1-2 weeks from discharge. Future Appointments and Orders Future Appointments and Orders Future Appointments Provider Department Dept Phone 11/23/2023 4:30 PM Donavon Frey MD [place] [facility] at: Director Business Area [phone] Future Orders Complete By Expires EKG 12 Lead [85164 CPT(R)] 12/18/2023 (Approximate) 06/18/2024 Process Instructions: Scheduling Instructions: Questions: Which DH location will this be performed?: [place] Is a rhythm strip needed?: No XR Chest PA & Lateral (Generic) [92760 [id number] Custom] 12/18/2023 (Approximate) 06/18/2024 Process Instructions: Scheduling Instructions: Questions: Reason for exam and clinical history: s/p CABG Where will study be performed?: [facility] Radiology Portable exam?: Stat read required?: Date of injury if applicable: Referral to Cardiac Rehab [BHG995 Custom] As directed Process Instructions: If no progress note charted, please enter Clinical details in comments. Scheduling Instructions: Questions: My question or request is: s/p CABG- cardiac rehab at [facility] Referral to Home Health [REF34 Custom] As directed Process Instructions: If no progress note charted, please enter Clinical details in comments. Scheduling Instructions: Comments: Please evaluate Hayden Russo for admission to Home Health. [address] [place] [address] Phone Number: [phone] (home) Date of : 1975 Inpatient DOCUMENTATION FOR VNA SERVICES (INCLUDING THOSE PATIENTS WITH MEDICARE COVERAGE REQUIRINGHOME VNA SERVICES AND/OR HOSPICE SERVICES) PATIENT'S LOCATION: Hayden Russo [address] [facility] [address] [facility] [address] [phone] (home) Telephone Information: Travel Agent's Name: Alina Russo/ In discussion with the attending physician, it is certified that this patient is under their care and that they, or a Nurse Practitioner, or Physician Safety Spec who is working directly with them, hada [...] for services as follows: HOME HEALTH AGENCY: [facility] [address] [address] and RN orders: Cardiopulmonary assessment, incisional assessment, [...] issues please call the Cardiology Office at [phone] FOR MEDICARE ONLY: (please delete this section [...] VNA/home care: As above. Signed: GLENIS Suarez [facility] Section of Cardiac Surgery [facility] [place] [address] FAX [phone] Date: 11/18/2023 CC: MD Deon Sesay Lauren, PA [facility] [address] documented in this encounter Discharge Instructions * [...] Timi Person and/or the Cardiac Surgery Physician Safety Spec Team may be reached at . Weight: [...] Dr. Timi Person. You may use a [place] Track or treadmill but avoid any pulling [...] friends, go to a movie, go to baptism, etc. Heavy activities: No hunting, skiing, jogging, [...] should resume a low fat, low cholesterol, [place] Heart [employer] Diet/Diabetic diet/Renal diet. Driving: No [...] while being managed by your PCP and/or Knitting Machine Operator. For future medication refills, please refer to your PCP and/or Knitting Machine Operator after your discharge from our service. Thank you REMOVE CHEST TUBE SUTURES ON OR AFTER 11/20/23 Home oxygen therapy: N/A Follow up appointments: You should follow up with your PCP, Bandar Hahn MD, in 1-2 weeks. Our office will schedule an appointment with your Knitting Machine Operator. You have an appointment with your Cardiac Surgeon, Dr. Timi Person, with a chest x-ray and EKG before your appointment. You have an appointment with Nephrology, Dr. Frey, 11/22 at 4:30pm. Cardiac Rehabilitation: Hayden Russo was seen today regarding participation in the outpatient Phase 2 Cardiac Rehabilitation at [facility]. The patient agrees to a referral to [...] shower hose DME: walker and cane; will molded goods spot picker shower seat on way home Baseline ADL/Mobility: Independent with ADLs and functional mobility. 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 Precautions/Special [...] progressing to LB dressing Seated EOB, used summer law clerk to assist with LB dressing with verbal [...] dressing, then LB dressing with use of summer law clerk and 2-3 x sit to stand to [...] his home. Equipment needs at discharge: received summer law clerk and sock aid, walker and will obtain [...] cardiac rehab Total Minutes, Occupational Therapy: 50 ([phone] [facility] x 3) Pager: [phone] Venus Yost OTD, OTR/L 11/18/2023 Occupational Therapy Rehabilitation Department * Sj Salomon, EXERCISE MANAGER - 11/18/2023 10:40 AM EDT Physical Therapy [...] 1 assist for transfers and ambulation w/ rn staff as able, would benefit froma chair follow [...] today. Encouraged pt to keep mobilizing oftenw/ rn staff and mobility techs to maximize activity tolerance [...] 1 railing w/ supervision Total Time: 20 (0956-4903) minutes; TEFx1 Sj Salomon PTA Pager: [phone] Physical Therapy Inpatient Rehabilitation Department * Vilma Felix, OT - 11/17/2023 12:48 PM EDT Occupational [...] with ADLs and functional mobility. 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 Precautions/Special Considerations: Full [...] Stood with walker with single-handed support to molded goods spot picker tissue from floor using summer law clerk with CGA Dressing while seated on EOB: Donned shirt with increased time needed and rest break. Donned underpants and shorts with min A for orientation of item, cues for technique (use of summer law clerk) and pacing, and CGA for hike of [...] good introduction to adaptive equipment with using summer law clerk with Mod A to don shorts. LB [...] 2-4 times/wk Total Minutes, Occupational Therapy: 46 ([phone] 4 nj) Pager: [phone] Vilma Felix OT 11/17/2023 Occupational Therapy Rehabilitation [...] 0600 and on the weekends please page [phone]. * Annalisa Nieto PTA - 11/17/2023 10:00 AM EDT Physical Therapy Note 5 Patient profile: Hayden Russo is a 47 y.o. male with CAD who is 16 Days Post-Op CABGx3. PMH of inferior STEMI s/p PCI, IDDM2, HTN, HLD, CKD, former smoker. Interval History: Per last cardiac surgery note on 11/17/2023 HD line removed Given lasix holiday, made [...] 1 assist for transfers and ambulation w/ rn staff as able, would benefit froma chair follow [...] Encouraged pt to keep mobilizing often w/ rn staff and mobility techs, and he would benefit [...] railing w/ supervision Time IN / OUT: 9014-1238 Total Time: 26 minutes; TEF 2 Annalisa Nieto PTA Pager: [phone] Physical Therapy Inpatient Rehabilitation Department * Iman Delatorre, RD - 11/17/2023 9:53 AM EDT Nutrition Progress Note Hayden Russo is a 47 y.o. male with a PMH of inferior STEMI s/p PCI, IDDM2, HTN, HLD, CKD, former smoker. S/p CABGx3. Reason for Assessment: Follow-up Nutrition Recommendations: CHO level 2 (regular solids, thin liquids per EMERGENCY PLANNER recs 11/12) Monitor and encourage po intake [...] Oral Daily acetaminophen 975 mg Oral Q6H [facility] insulin lispro 0-15 Units Subcutaneous TID insulin [...] QPM insulin lispro 1-11 Units Subcutaneous Q4H [facility] epoetin sha-epbx 10,000 Units Subcutaneous Once per [...] encounter: 118.3 kg (260 lb 14.4 oz). [place] Body Weight (IBW) (kg): 75.45 Wt Readings [...] (either PRN or weekly) [] Other * Michelle Pretty, IMAGING SCHEDULER - 11/16/2023 3:07 PM EDT Glucose Management Team Inpatient Progress Note HPI Hayden Russo is a 47 y.o. male from [place], [place], with PMH significant for ASCVD-CAD (2019 [...] BG Q4hrs Diet: Carb Controlled 60/60/75g Discharge Planning/tax representative diabetes care: Medications - Outpatient treatment regimen recommendations pending based on the hospital course. Home: Confirmed 11/12 Farxiga 10mg QD - likely restart at discharge. Insulin glargine (Basaglar) 56u QD - discharge on hospital dose Humalog 20-30u TID w/meals - Needs meal base dose with correction scale. No Ozempic since May d/ pancreatitis. Monitoring BG tid ac & hs Follow-up: PCP 35 minutes were spent over the course of the day with this patient encounter including time spent in chart review and relevant lab result review, assessment of and counseling with the patient on diabetes and treatment plan, reviewing all glucose and insulin data, and coordination with the consulting service. Michelle Pretty APRN, DNP, -[facility] Inpatient Diabetes Management Team Team pager #[phone] (DRAFT) Diabetes Discharge Instructions & Recommendations Check [...] your insulin doses adjusted. * Dione Herrera, EMERGENCY PLANNER - 11/16/2023 2:08 PM EDT Speech Therapy [...] Tested Comments Thin liquids x By straw [place] thick liquids Honey thick liquids Pureed solids [...] Education: Patient educated on role of the EMERGENCY PLANNER, reason for evaluation, findings and plan of [...] short of breath when eating) No further EMERGENCY PLANNER intervention is warranted while hospitalized. Speech Therapy Goals: (To be met by discharge) Pt will tolerate least restrictive diet consistency without evidence of dysphagia / aspiration. MET Pt / caregiver will be independent with aspiration precautions, diet modifications, and safe swallowing strategies. MET Pt/caregivers will follow anti-delirium precautions independently with assist from staff as needed MET Plan: Therapy Frequency (EMERGENCY PLANNER Eval): other (see comments) Pt DC from acute EMERGENCY PLANNER services. Pt./family are in agreement with treatment plan. Total Minutes (Speech Language Pathology): 12 Thank you for this consult with this patient. Please feel free to page me with any questions or concerns. Dione Herrera MA, [facility]-EMERGENCY PLANNER Pager: [phone] Speech-Language Pathology Inpatient Rehabilitation Medicine * Donavon Frey MD - 11/16/2023 11:48 AM EDT HYPERTENSION/ NEPHROLOGY PROGRESS NOTE PATIENT: Hayden Russo : 1975 REASON FOR CONSULTATION: DONAL Russo is a 47 y.o. male seen [...] 4.1 4.5 CL 102 103 103 CO2 23 24 25 BUN 44* 41* 28* CREATININE 3.52* [...] 0600 and on the weekends please page [phone]. * Donavon Frey MD - 11/15/2023 3:22 [...] and evening. Discussed with primary team. * Kita Tomlinson Jarek, OT - 11/15/2023 2:55 PM EDT [...] with ADLs and functional mobility. 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 Precautions/Special Considerations: Full [...] the following: Self-care: Educated and facilitated with summer law clerk to don shorts with increased time and Mod A with VCs for sequencing. Max A to taffy puller hips. Functional Mobility: Sit to stand: Min [...] good introduction to adaptive equipment with using summer law clerk with Mod A to don shorts. Pt [...] 2-4 times/wk Total Minutes, Occupational Therapy: 18 ([phone] (self care x1)) Pager: [phone] Kita Tomlinson, BATSHEVA 11/15/2023 Occupational Therapy Rehabilitation Department * Michelle Pretty, IMAGING SCHEDULER - 11/15/2023 2:00 PM EDT Glucose Management Team Inpatient Progress Note HPI Hayden Russo is a 47 y.o. male from [place], [place], with PMH significant for ASCVD-CAD (2019 [...] BG Q4hrs Diet: Carb Controlled 60/60/75g Discharge Planning/tax representative diabetes care: Medications - Outpatient treatment regimen [...] the consulting service. Michelle Pretty APRN, DNP, -[facility] Inpatient Diabetes Management Team Team pager #[phone] (DRAFT) Diabetes Discharge Instructions & Recommendations Check [...] front wheeled walker. Time IN / OUT: 1412-5914 Total Minutes, Physical Therapy: 45 mins( tef) Julianne Moore, PT Pager: [phone] Physical Therapy Inpatient Rehabilitation Department * Pat [...] labs in 4-6 weeks Dispo: Transfer to [facility], full code Discussed with attending surgeon on rounds this morning. 11/15/2023 Between the hours of 1800 - 0600 and on the weekends please page [phone]. * Michelle Pretty, RAMONA - 11/14/2023 2:24 PM EDT Glucose Management Team Inpatient Progress Note HPI Hayden Russo is a 47 y.o. male from [place], [place], with PMH significant for ASCVD-CAD (2019 [...] BG Q4hrs Diet: Carb Controlled 60/60/75g Discharge Planning/retirement diabetes care: Medications - Outpatient treatment regimen [...] the consulting service. Michelle Pretty APRN, DNP, -[facility] Inpatient Diabetes Management Team Team pager #[phone] (DRAFT) Diabetes Discharge Instructions & Recommendations Check [...] front wheeled walker. Time IN / OUT: 9091-6877 Total Minutes, Physical Therapy: 60 Billing Code: te-sx2, te-fx NATALIE MARTIN PT Pager: [phone] Physical Therapy Inpatient Rehabilitation Department * Donavon Frey MD - 11/14/2023 11:56 AM EDT HYPERTENSION/ NEPHROLOGY PROGRESS NOTE PATIENT: Hayedn Russo : 1975 REASON FOR CONSULTATION: DONAL [...] 0600 and on the weekends please page [phone]. * Barbie Pelaez, RD - 11/14/2023 8:42 AM EDT Nutrition Progress Note Hayden Russo is a 47 y.o. male with a PMH of inferior STEMI s/p PCI, IDDM2, HTN, HLD, CKD, former smoker. S/p CABGx3. Reason for Assessment: Follow-up Nutrition Recommendations: CHO level 2 (regular solids, thin liquids per EMERGENCY PLANNER recs 11/12) Monitor and encourage po intake - please document % po Monitor BM Liquid tylenol contains sugar alcohol(s) (sorbitol) that acts as a purgative. If stool output is excessive, consider switching to crushed tablet form. Mg and phos with daily labs Daily weights I was able to discuss plan with provider [facility] 3631 . Current Nutrition Regimen: Active Orders Diet [...] encounter: 117.1 kg (258 lb 2.5 oz). [place] Body Weight (IBW) (kg): 75.45 Wt Readings [...] Thank you, Barbie Pelaez, MS, RD, LD, [facility] Clinical Nutrition * Bryanna Melton RCP [...] front wheeled walker. Time IN / OUT: 8467-4650 Total Minutes, Physical Therapy: 33 Billing Code: te-s, te-f NATALIE MARTIN PT Pager: [phone] Physical Therapy Inpatient Rehabilitation Department * Michelle Pretty, RAMONA - 11/13/2023 11:30 AM EDT Glucose Management Team Inpatient Progress Note HPI Hayden Russo is a 47 y.o. male from [place], [place], with PMH significant for ASCVD-CAD (2019 [...] for now. He has started a Carb Yxaoudtuwi23/60/75g diet, and breakfast went well. TF insulin [...] BG Q4hrs Diet: Carb Controlled 60/60/75g Discharge Planning/retirement diabetes care: Medications - Outpatient treatment regimen [...] coordination with the consulting service. Michelle Pretty, IMAGING SCHEDULER, DNP, -[facility] Inpatient Diabetes Management Team Team pager #[phone] (DRAFT) Diabetes Discharge Instructions & Recommendations Check [...] juice or regular (not diet) soda 6 [employer] small box of raisins 4 glucose tablets [...] your insulin doses adjusted. * Dione Herrera, EMERGENCY PLANNER - 11/13/2023 9:40 AM EDT Speech Therapy [...] Tested Comments Thin liquids x By straw [place] thick liquids Honey thick liquids Pureed solids [...] Education: Patient educated on role of the EMERGENCY PLANNER, reason for evaluation, findings and plan of [...] when eating) Pt will benefit from continued EMERGENCY PLANNER services while hospitalized Speech Therapy Goals: (To be met by discharge) Pt will tolerate least restrictive diet consistency without evidence of dysphagia / aspiration. MET Pt / caregiver will be independent with aspiration precautions, diet modifications, and safe swallowing strategies. MET Pt/caregivers will follow anti-delirium precautions independently with assist from staff as needed ONGOING Plan: Therapy Frequency (EMERGENCY PLANNER Eval): Monitor (until tolerating Reg solids/liquids on floor status) Pt./family are in agreement with treatment plan. Total Minutes (Speech Language Pathology): 24 Thank you for this consult with this patient. Please feel free to page me with any questions or concerns. Dione Herrera MA, [facility]-EMERGENCY PLANNER Pager: [phone] Speech-Language Pathology Inpatient Rehabilitation Medicine * Aby Williamson, IMAGING SCHEDULER - 11/13/2023 9:37 AM EDT Cardiac Surgery [...] +bs +flatus Ext: WWP, 1+ edema Incisions: SAMUEL CDI [...] 0600 and on the weekends please page [phone]. * Tay Ewing MD - 11/13/2023 7:56 [...] current prescription. Alice Stewart MD Nephrology Pager: [phone] * Daniel Martin MD - 11/12/2023 12:45 [...] resolved this a.m. TFs held Seen by EMERGENCY PLANNER this a.m. HTN to 170-180 S: Doing [...] 0600 and on the weekends please page [phone]. * Steve Vázquez MD - 11/12/2023 10:20 AM EDT Images from the original note were not included. Follow Up Diabetes Consult HPI Hayden Russo is a 47 y.o. male from [place], [place], with PMH significant for ASCVD-CAD (2019 [...] running. Patient was seen and evaluated by EMERGENCY PLANNER this morning, recommended regular diet with thin [...] that was running in [place]. Seen by EMERGENCY PLANNER today, recommended regular diet and thin liquids. [...] Lispro Monitoring: BG Q4hrs Diet: NPO Discharge Planning/retirement diabetes care: Medications - Outpatient treatment regimen [...] with Dr. Vázquez. Josee Vernon MD. PGY4 [facility] [place]ocrinology I have reviewed Dr Vernon's history and I agree with the details as written. The assessment and planwere formulated in discussion with me and I agree with them as documented. Steve Vázquez MD Construction Engineerbranch sales manager Endocrinology Section [facility] * Lolly-Dione Stoner SLP - 11/12/2023 9:34 AM EDT Speech Therapy Clinical Swallow Evaluation Patient Profile: Haydne Russo is a 47 y.o. male with [...] liquids x Ice chips, water by straw [place] thick liquids Honey thick liquids Pureed solids [...] Education: Patient educated on role of the EMERGENCY PLANNER, reason for evaluation, findings and plan of [...] when eating) Pt will benefit from continued EMERGENCY PLANNER services while hospitalized Speech Therapy Goals: (To be met by discharge) Pt will tolerate least restrictive diet consistency without evidence of dysphagia / aspiration. NEW Pt / caregiver will be independent with aspiration precautions, diet modifications, and safe swallowing strategies. NEW Pt/caregivers will follow anti-delirium precautions independently with assist from staff as needed NEW Plan: 2-4 times/wk for EMERGENCY PLANNER f/u Pt./family are in agreement with treatment plan. 32 min Thank you for this consult with this patient. Please feel free to page me with any questions or concerns. Dione Herrera MA, [facility] Pager: [phone] Speech-Language Pathology Inpatient Rehabilitation Medicine * Alice [...] current prescription. Alice Stewart MD Nephrology Pager: [phone] * Fallon Crowe SLP - 11/11/2023 12:41 PM EDT Speech Language Pathology Contact Note - No Charge Visit Order received, chart reviewed and discussed with RN. Extubated to CPAP yesterday after an 11-day period of intubation; TF currently on hold and being worked up for abd pain. Holding off on clinical swallow evaluation today per guidance from RN/team. EMERGENCY PLANNER will re-attempt tomorrow as able/as pts medical status permits. Thank you for this consult. Please page with any questions or concerns. Fallon Quan M.A., [facility] Speech-Language Pathology Inpatient Rehabilitation Department Pager # [phone] Weekend Pager # [phone] * Genaro Aragon PA - 11/11/2023 9:20 [...] nontender. Tympanic Ext: WWP, 1+ edema Incisions: SQL DEVELOPER CDI Tubes/Lines/Drains: RIJ HD line, [place], TPW, Todd, DHT, PIV Assessment/Plan: 47 y.o. [...] 0600 and on the weekends please page [phone]. * Daniel Martin MD - 11/11/2023 8:09 AM EDT Cardiovascular Critical Care Attending Note Hayden Russo 1975 Age: 47 y.o. PCP: Badnar Hahn MD Date of Service: 11/12/2023 Date [...] by the Cardiology/Cardiac Surgery attending of record. ADNIEL MARTIN MD 11/12/2023 * Venus Lopes RCP [...] 90s. Pt compliant with nocturnal NIV. Venus Lopes RCP * Alice Stewart MD - 11/10/2023 6:41 [...] fairly high-volume UF, so would continue 24-hour FIRER WATERTENDER for now. Urine output has decreased significantly. Could consider transition to shift CRRT if primary team feels he will still achieve adequate volume removal. Urine output my increase during periods of CRRT, and output could perhaps be augmented with diuresis. Metabolic labs - Metabolic labs are adequately controlled. Will continue current prescription. Alice Stewart MD Nephrology Pager: [phone] * Natalie Martin, PT - 11/10/2023 4:58 [...] WITH STENT PLACEMENT HERNIA REPAIR PRG CATH PLVA LEFT HEART CATH & ARTS W/INJ & ANGIO IMG S&I N/A 08/04/2023 CORONARY ANGIOGRAPHY; W LHC,POSSIBLE PCI (WRVU 5.6) performed by Azul Rowley MD at [facility] CATHLABS PRO CABG, ARTERIAL, SINGLE N/A 10/30/2023 @CABG, USING ARTERIAL GRAFT;SINGLE ARTERIAL GRAFT (WRVU 33.75) performed by Timi Person MD at [facility] MAIN OR PRO CABG, ARTERY-VEIN, TWO N/A 10/30/2023 @CABG, TWO VENOUS GRAFTS & ARTERIAL GRAFT (WRVU 7.93) performed by Timi Person MD at [facility] MAIN OR PRO ENDOSCOPY W/VIDEO-ASST VEIN HARVEST, CABG N/A 10/30/2023 ENDOSCOPIC HARVEST VEIN(S) FOR CABG (WRVU 0.31) performed by Timi Person MD at [facility] MAIN OR Social History: Pt live with [...] and mobility recommendations discussed with nursing. Assessment: Hayedn Russo was seen today for physical therapy [...] in this evaluation. Time IN / OUT: 6315-3729 Total Minutes, Physical Therapy: 45 Billing Code: evaluation (high complex) NATALIE MARTIN PT Pager: [phone] Physical Therapy Inpatient Rehabilitation Department * Ariel [...] and respiratory alkalosis. Action List Medications/ACT: Alb. MIGUEL Q4 Situational Awareness & Contingency Planning Pt not a Difficult Aw, but a grade 2 view. MD Smith wants pt to be extubated on Day shift when more people available if needs to be re-intubated. Extubate to Bipap. * Michelle Pretty APRN - 11/10/2023 3:30 PM EDT Glucose Management Team Inpatient Progress Note HPI Hayden Russo is a 47 y.o. male from [place], [place], with PMH significant for ASCVD-CAD (2019 [...] AF 112g/1000mL, goal rate 75ml/hr); Prior: 10/29 181 - D10 w/10u Regular insulin for hyperkalemia; [...] Lispro Monitoring: BG Q4hrs Diet: NPO Discharge Planning/retirement diabetes care: Medications - Outpatient treatment regimen [...] the consulting service. Michelle Pretty APRN, DNP, -[facility] Inpatient Diabetes Management Team Team pager #[phone] * Heath Ross - 11/10/2023 2:59 PM EDT Managed Care Liaison Encounter Note Patient Name: Hayden Russo : [id number] MR#: [id number] Admit Date: 10/30/2023 6:13 AM Hospital Day [...] DANIEL MARTIN MD 11/10/2023 * Clay Aby, IMAGING SCHEDULER - 11/10/2023 10:36 AM EDT Cardiac Surgery [...] 0600 and on the weekends please page [phone]. * Alicia Clayton RCP - 11/10/2023 6:15 [...] needs to be re-intubated. Extubate to Bipap. Devin Sales RT * Alice Stewart MD - 11/09/2023 4:54 [...] getting high-volume UF, so would continue 24-hour FIRER WATERTENDER for now. Urine output has decreased with aggressive UF, so may want to consider slight reduction in UF to avoid persistent kidney injury. Metabolic labs - Metabolic labs are adequately controlled. Will continue current prescription. Alice Stewart MD Nephrology Pager: [phone] * Vita, KitaRAMONA - 11/09/2023 1:07 PM EDT Patient Interview [...] Russo is a 47 y.o. male from [place], [place], with PMH significant for ASCVD-CAD (2019 [...] including nursing and primary team. * Barbie Pelaez RD - 11/09/2023 11:41 AM EDT Nutrition [...] - optimize regimen with goal of 1 q97-46dwv while on TF Liquid tylenol contains sugar alcohol(s) (sorbitol) that acts as a purgative. If stool output is excessive, consider switching to crushed tablet form. Mg and phos with daily labs Monitor BG - goal of 140-180. DM team following Daily weights I was able to discuss plan with provider CC [id number] . Current Nutrition Regimen: Active Orders Diet [...] encounter: 130.5 kg (287 lb 12.6 oz). Dutton Body Weight (IBW) (kg): 75.45 Wt Readings [...] enough data to assess (Sharri et al, CHANEL J Parenteral Enteral Nutr. 2011; 36(3): 273-83) Nutrition to continue to follow up while inpatient Thank you, Barbie Pelaez, MS, RD, LD, [facility] Clinical Nutrition * Clay Aby, IMAGING SCHEDULER - 11/09/2023 8:22 AM EDT Cardiac Surgery [...] 0600 and on the weekends please page [phone]. * Cristina Bran MD - 11/09/2023 7:09 [...] running successfully and able to pull negative [place] UOP 380mL/24 hours CRRT removal 4950mL/24 hours Net negative 2187mL/24 hours Remains off norepinephrine Stable oxygenation profile, Sofía able to be weaned over the course of the day yesterday, on 1ppm this am MEDICATIONS: Scheduled Meds: atorvastatin 40 mg Oral QPM QUEtiapine 50 mg Oral Nightly insulin lispro 6-10 Units Subcutaneous Q4H [facility] protein powder 2 Scoop Per NG tube TID insulin lispro 1-11 Units Subcutaneous Q4H [facility] acetaminophen 1,000 mg Oral Q6H ISAMAR aspirin [...] this shift: In: 944.8 [I.V.:424.8; NG/GT:500] Out: 1980 [Urine:140; Other:1291; Stool:550] A/R: DONAL - Nurse gradually trying to increase UF. Was able to run net negative 2.1L yesterday. Metabolic labs - Potassium still low despite 4K bath and KPhos. Getting replacement. Still has metabolic acidosis; increased RFR from 3L to 4L. Hyperphosphatemia has resolved on CRRT, as expected. Alice Stewart MD Nephrology Pager: [phone] * Michelle Pretty, IMAGING SCHEDULER - 11/08/2023 11:06 AM EDT Addendum 1600: [...] Russo is a 47 y.o. male from [place], [place], with PMH significant for ASCVD-CAD (2019 [...] Lispro Monitoring: BG Q4hrs Diet: NPO Discharge Planning/retirement diabetes care: Medications - Outpatient treatment regimen [...] the consulting service. Michelle Pretty APRN, DNP, -[facility] Inpatient Diabetes Management Team Team pager #[phone] * Aby Williamson APRN - 11/08/2023 9:02 [...] Sofía at 10 ppm 11/06 0701 - 09/18 0700 In: 4040 [I.V.:1778.9] Out: 6170 [Urine:2635] [...] Incisions: SAMUEL CDI Tubes/Lines/Drains: RIJ HD line, [place], TPW, Todd, DHT, PIV, flexiseal Assessment/Plan: 47 [...] attending surgeon on rounds this morning. ABY MCGARRYFIELD, RAMONA 11/08/2023 Between the hours of 1800 - 0600 and on the weekends please page [phone]. * Meri Clark RT - 11/08/2023 8:45 [...] as tolerated. SOFÍA 10ppm no changes. Mamie Mckeon RCP * Alice Stewart MD - 11/07/2023 2:46 [...] with CRRT. Alice Stewart MD Nephrology Pager: [phone] * Barbie Pelaez RD - 11/07/2023 11:01 [...] - optimize regimen with goal of 1 f58-63ice while on TF Liquid tylenol contains sugar alcohol(s) (sorbitol) that acts as a purgative. If stool output is excessive, consider switching to crushed tablet form. Mg and phos with daily labs Monitor BG - goal of 140-180 Daily weights I was able to discuss plan with provider [facility] [id number] . Current Nutrition Regimen: Active Orders Diet [...] encounter: 135.2 kg (298 lb 1 oz). [place] Body Weight (IBW) (kg): 75.45 Wt Readings [...] Thank you, Barbie Pelaez, MS, RD, LD, [facility] Clinical Nutrition * Michelle Pretty, RAMONA - 11/07/2023 9:01 AM EDT Glucose Management Team Inpatient Progress Note HPI Hayden Russo is a 47 y.o. male from [place], [place], with PMH significant for ASCVD-CAD (2019 [...] Lispro Monitoring: BG Q4hrs Diet: NPO Discharge Planning/retirement diabetes care: Medications - Outpatient treatment regimen [...] BC-ADM Inpatient Diabetes Management Team Team pager #[phone] * Aby Williamson, RAMONA - 11/07/2023 8:24 [...] 0600 and on the weekends please page [phone]. * Cristina Bran MD - 11/07/2023 6:06 [...] CRRT is unclear. Could consider placement of [place] for better assessment of his intravascular volume [...] phos down. Alice Stewart MD Nephrology Pager: [phone] * Michelle Pretty, IMAGING SCHEDULER - 11/06/2023 11:21 AM EDT Glucose Management Team Inpatient Progress Note HPI Hayden Russo is a 47 y.o. male from [place], [place], with PMH significant for ASCVD-CAD (2019 [...] Lispro Monitoring: BG Q4hrs Diet: NPO Discharge Planning/retirement diabetes care: Medications - Outpatient treatment regimen [...] the consulting service. Michelle Pretty APRN, DNP, -[facility] Inpatient Diabetes Management Team Team pager #[phone] * Barbie Pelaez, RD - 11/06/2023 9:26 [...] - optimize regimen with goal of 1 x52-19zlg while on TF (LBM 11/02) Monitor BG - goal of 140-180 Daily weights I was able to discuss plan with provider [facility] [phone] . Current Nutrition Regimen: Active Orders Diet [...] 11/06/2023 09 Last data filed at 11/06/2023 0800 Gross per 24 hour Intake 3994.76 ml [...] encounter: 134.1 kg (295 lb 10.2 oz). [place] Body Weight (IBW) (kg): 75.45 Wt Readings [...] Thank you, Barbie Pelaez, MS, RD, LD, [facility] Clinical Nutrition * Cristina Bran MD [...] sounds, ND Ext: WWP, 2+ edema Incisions: SQL DEVELOPER CDI Tubes/Lines/Drains: RIJ HD line, [place], TPW, [...] collapse Continue tube feeds at goal via [facility] Give suppository BAL sent 11/01, final results [...] 0600 and on the weekends please page [phone]. * Bandar Sánchez RCP - 11/06/2023 2:57 [...] 80% this shift to 40%. SOFÍA currently ad69ikh Pt gets MDI/Albuterol Q4 hours 6puffs Bandar [...] no fever, fentanyl increased overnight for pain [place] removed Sofía weaned, failed to come off [...] WWP, 2+ edema Incisions: SAMUEL CDI Tubes/Lines/Drains: RIJ, [place], TPW, Todd, DHT, PIV Assessment/Plan: 47 y.o. male 6 Days Post-Op CABGx3 MV CAD s/p CABGx3 RV dysfunction ASA / Plavix Statin Inotropes weaned off, CI remains >2.2, [place] removed 11/03 Levo to keep map >65, [...] febrile will stop and discuss alternative with carding doubler Recheck triglycerides next week if remains on [...] 0600 and on the weekends please page [phone]. * Calos Lazo MD - 11/05/2023 9:42 [...] dropping off and it is likely that FIRER WATERTENDER will be necessary despite poor tolerance today. [...] currently off vasoactive support. RV function improved. [place] removed. Continuing todiurese as able given acute [...] Negative Leukocytes, Urine Dipstick Negative Negative Specific [place] Urine Automated 1.015 1.005 - 1.030 Appearance, [...] Information Transfused Product Identification RBC Unit Number [id number] Product Code [id number] Unit Blood Type OPOS Specimen Expiration Date [id number] Volulme 350 Issue Date / Time [id number] Ferritin Result Value Ref Range Ferritin 835 [...] documentation on the unit. * Bandar Sánchez [facility] - 11/04/2023 11:22 PM EDT Hayden Russo [...] sounds, ND Ext: WWP, 2+ edema Incisions: SQL DEVELOPER CDI Tubes/Lines/Drains: RIJ/PAC, [place], TPW, Todd, DHT, PIV Assessment/Plan: 47 y.o. male 5 Days Post-Op CABGx3 MV CAD s/p CABGx3 RV dysfunction Restart ASA Plavix Statin Inotropes weaned off, CI remains >2.2, remove [place] today Wean levo as able, replace calcium [...] febrile will stop and discuss alternative with carding doubler Recheck triglycerides next week if remains on [...] 0600 and on the weekends please page [phone]. * Genaro Goins RCP - 11/04/2023 6:20 [...] MDI treatments. No events overnight. Secretions thin/thick dagn overnight. Action List Medications/ACT: Albuterol MDI Q4 [...] Russo is a 47 y.o. male from [place], [place], with PMH significant for ASCVD-CAD (2019 [...] NEAR FUTURE Tube feeding composition Pepta Intense [facility] offers 76 GM CHO per litre. Over [...] sternotomy incision, saphenectomy site SAMUEL/CDI Tubes/Lines/Drains: RIJ, [place], TPW, Todd Assessment/Plan: 47 y.o. male 4 Days Post-Op CABGx3 S/p CABGx3 RV dysfunction Post operative respiratory failure ASA 81 Plavix (for [place] creek CAD) Lipitor 80 Cont lasix gtt Diuril [...] 0600 and on the weekends please page [phone]. * Renata Britton RCP - 11/03/2023 8:17 [...] Russo is a 47 y.o. male from [place], [place], with PMH significant for ASCVD-CAD (2019 [...] sternotomy incision, saphenectomy site SAMUEL/CDI Tubes/Lines/Drains: RIJ, [place], TPW, Todd Assessment/Plan: 47 y.o. male 3 [...] 0600 and on the weekends please page [phone]. * Renata Britton [facility] - 11/02/2023 8:45 AM EDT Illness Severity: [...] - 11/02/2023 6:30 AM EDT Illness Severity \[id number]\\[id number]\\[id number]\\[id number]\\[id number]\\[id number]\\[id number]\\[id number]\\[id number]\Watcher Respiratory Modalities: O2 Device: Ventilator PS/CPAP 12/+10, [...] 11/01/2023 3:40 PM EDT Family asked for [employer]ICE PRESIDENT [employer]CRUITING follow up phone call on 11/02/2023 as they are working. PLAN Will put consult on covering [employer]ICE PRESIDENT OF RECRUITING list for 11/02/2023 as this journalists and other writers is not scheduled on this date. Pooja ZHU,LUMBER TAILER [phone] * Michelle Pretty APRN - 11/01/2023 10:15 AM EDT Glucose Management Team Inpatient Progress Note HPI Hayden Russo is a 47 y.o. male from [place], [place], with PMH significant for ASCVD-CAD (2019 [...] in D5% (10/29-present); Norepinephrine (10/30 2355-present); Vasopressin (10/30-) Prior: 10/29 1810 - D10 w/10u Regular [...] also on his list. [employer]s also notes [id number] QD for >1year with recent dispense dates, [...] to rule out SGLT-2i induced DKA Discharge Planning/retirement diabetes care: Medications - Outpatient treatment regimen [...] the consulting service. Michelle Pretty APRN, DNP, -[facility] Inpatient Diabetes Management Team Team pager #[phone] * Renata Britton RCP - 11/01/2023 8:05 [...] 1-2+ edema Incisions: sternotomy incision, saphenectomy site SQL DEVELOPER/CDI Tubes/Lines/Drains: RIJ, [place], TPW, Tdod Assessment/Plan: 47 y.o. male 2 Days Post-Op [...] 0600 and on the weekends please page [phone]. * Genaro Goins, [facility] - 11/01/2023 5:45 AM EDT Illness Severity [...] 1999: 7.39 37 68 22 ABG @ 2335: 7.39 35 72 21 LUIS ALFREDO @ 0407: 7.38 39 79 22 Action [...] Will follow-up as approp for eval. Julianne Moore, PT Pager [phone] * Natalia Moulton PA - 10/31/2023 9:03 [...] 0600 and on the weekends please page [phone]. * Renata Britton RCP - 10/31/2023 8:03 [...] plan since last visit. Timi Person MD [phone] Source Note - Timi Person MD - [...] given written informed consent. Timi Person MD [phone] * Timi Person MD - 10/30/2023 7:01 [...] given written informed consent. Timi Person MD [phone] documented in this encounter Procedure Notes * [...] & Follow-up Care: Contact information for follow-up [address] [address] Cardiac Rehab, [facility] [address] [place] [address] Transportation: family or friend will provide Wheelchair van/Ambulance? 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 Current Living Arrangements: home/apartment/condo. Accessibility Concerns:apartment on the second floor with FOS. Current Functional Ability: Assistive Person and Equipment DME used at home: none, other (see comments) (they have walker and cane) DME Needed at Discharge: none - patient already has a FWW and cane Patient is insured through: Primary Insurance: [employer] 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 Current Living Arrangements: home/apartment/condo. Accessibility Concerns: apartment on the second floor with FOS. Current Functional Ability: Completely Dependent DME used at home: none, other (see comments) (they have walker and cane) DME Needed at Discharge: No Patient is insured through: Primary Insurance: [employer] [place] Payor: [employer] [facility] [place] / Plan: [facility] / Product Type: *No Product [...] Agency/Support Group Needs: Homecare agency Agency Choices: [facility] Referrals: [facility] Agency - [place] [address] and Transportation: family or friend will provide Barriers to discharge: None anticipated Psychosocial: Adjustment to diagnosis/illness Supports: Caregiver support Financial / Legal: Financial/insurance ICU Needs: none / ready for downgrade Plan going forward: Pt remains hospitalized 18 Days Post-Op CABGx3. D/C plan pending clinical course and PT/OT recs, but anticipating d/c home with home health services when MR. DELL MERRITT will continue to monitor for d/c needs. Anticipated Date of Discharge: 11/19/2023 * Consult Note - Cyndy Ambrose RN - 11/17/2023 11:04 AM EDT [facility] Hayden Russo was seen today regarding participation in the outpatient Phase 2 Cardiac Rehabilitation at [facility]. The patient agrees to a referral to [...] use. Buttocks 11/09: Buttocks 11/16: Current bed: [facility] Assessment: The purple area on the left [...] HOB higher than 30 degrees) Use a [employer] chair cushion beneath patient at all times [...] or the wound care team on pager [phone] with skinand wound care concerns or questions. * Plan of Care - Hector Hair RN - 11/17/2023 4:46 AM EDT OUTCOME EVALUATION NOTE: OUTCOME SUMMARY: A&Ox4, VSS (HTN, PRN medications administered), on RA. Pt denies pain, CP, and SOB. PT had GYi4ekry shift. Todd patent. Continuing to actively monitor. [...] Hospital-Acquired Illness or Injury 11/17/2023445 by Hector Hair RN Outcome: [...] (Interventions Implemented as Appropriate) 11/17/2023445 by Hector Hair, DELL Outcome: Ongoing (Interventions Implemented as Appropriate) Problem: Bleeding (Cardiovascular Surgery) Goal: Absence of Bleeding 11/17/2023445 by Hector Hair, DELL Outcome: Ongoing [...] WITH STENT PLACEMENT HERNIA REPAIR PRG CATH [facility] LEFT HEART CATH & ARTS W/INJ & ANGIO IMG S&I N/A 08/04/2023 CORONARY ANGIOGRAPHY; W C,POSSIBLE PCI (WRVU 5.6) performed by Azul Rowley MD at [facility] CATH[facility]S PRO CABG, ARTERIAL, SINGLE N/A 10/30/2023 @CABG, USING ARTERIAL GRAFT;SINGLE ARTERIAL GRAFT (WRVU 33.75) performed by Timi Person MD at [facility] MAIN OR PRO CABG, ARTERY-VEIN, TWO N/A 10/30/2023 @CABG, TWO VENOUS GRAFTS & ARTERIAL GRAFT (WRVU 7.93) performed by Timi Person MD at [facility] PRO ENDOSCOPY W/VIDEO-ASST VEIN HARVEST, CABG N/A 10/30/2023 ENDOSCOPIC HARVEST VEIN(S) FOR CABG (WRVU 0.31) performed by Timi Person MD at [facility] MA[facility] OR Social History: (pt and CM note) Patient lives with his and tabby cat. Home Setup: a2nd floor apartment with FOS to enter. DME: walker and cane Baseline ADL/Mobility: Independent with ADLs and functional mobility. 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 Precautions/Special Considerations: Full [...] Discharge planning. Total Minutes, Occupational Therapy: 31 (1979-9486 (evaluation)) 2017 OT Evaluation Code Rationale: Diagnosis [...] and measurable assessment of functional outcome. Pager: [phone] Kita Tomlinson OT 11/13/2023 Occupational Therapy Rehabilitation [...] HOB higher than 30 degrees) Use a [employer] chair cushion beneath patient at all times [...] or the wound care team on pager [phone] with skinand wound care concerns or questions. 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 Current Living Arrangements: home/apartment/condo. Accessibility Concerns: apartment on the second floor with FOS. Current Functional Ability: Completely Dependent DME used at home: none, other (see comments) (they have walker and cane) DME Needed at Discharge: No Patient is insured through: Primary Insurance: [employer] 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 Current Living Arrangements: home/apartment/condo. Accessibility Concerns: apartment on the second floor with FOS. Current Functional Ability: Completely Dependent DME used at home: none, other (see comments) (they have walker and cane) DME Needed at Discharge: No Patient is insured through: Primary Insurance: [employer] [facility] Payor: [employer] [facility] [place] / Plan: [employer] [place]OP / Product Type: *No Product type* / Secondary Insurance: N/A Plan for discharge is: Pending Hospital Course and PT/OT Recommendations Outpatient Agency/Support Group Needs: Homecare agency Agency Referrals: pending clinical course and PT/OT recs [facility] Agency - [place] [address] and Transportation: family or friend will provide [...] Lazo MD - 11/04/2023 11:14 AM EDT [facility] HYPERTENSION/ NEPHROLOGY INPATIENT CONSULTATION PATIENT: Hayden Russo : 1975 REASON FOR CONSULTATION: DONAL referred by Dr. Person Patient intubated/sedated. Hx is from record. 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 Obesity Beta-thal trait by [...] mod TR; RV function decreased Prior w/u [id number] care everywhere Neg BONITA Neg Quant gold [...] 5.6) performed by Azul Rowley MD at [facility] CATH[facility]S PRO CABG, ARTERIAL, SINGLE N/A 10/30/2023 @CABG, USING ARTERIAL GRAFT;SINGLE ARTERIAL GRAFT (WRVU 33.75) performed by Timi Person MD at [facility] MAIN OR PRO CABG, ARTERY-VEIN, TWO N/A 10/30/2023 @CABG, TWO VENOUS GRAFTS & ARTERIAL GRAFT (WRVU 7.93) performed by Timi Person MD at [facility] OR PRO ENDOSCOPY W/VIDEO-ASST VEIN HARVEST, CABG N/A 10/30/2023 ENDOSCOPIC HARVEST VEIN(S) FOR CABG (WRVU 0.31) performed by Timi Person MD at [facility] OR FH: Family History Problem Relation [...] can be identified. No urgent need for FIRER WATERTENDER but his trend is concerning Regarding DONAL and lab abnormalities: Check CK-degree of high phos unusual at this point Check uric acid Please send UA, urine Na, urine Cr, urine urea (for FEUrea), UPC ratio, UACR Obtain renal US (can be done next week) Dose adjust all meds for severe DONAL Avoid nephrotoxins Trend labs including cabinetmaker supervisor, phos daily Consider hemolysis w/u if blood [...] have. Alternately, during off-hours you may call [phone] to contact a pharmacist. 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 Current Living Arrangements: home/apartment/condo. Accessibility Concerns: apartment on the second floor with FOS. Current Functional Ability: Completely Dependent DME used at home: none, other (see comments) (they have walker and cane) DME Needed at Discharge: TBD, pending PT/OT recs Patient is insured through: Primary Insurance[place] Payor: [employer] [place] / Plan: [employer] [place] / Product Type: *No Product type* / Secondary Insurance: N/A Plan for discharge is: Pending Hospital Course and PT/OT Recommendations Outpatient Agency/Support Group Needs: Homecare agency Agency Referrals: [facility] [place] [address] and Transportation: family or friend will provide [...] - optimize regimen with goal of 1 [id number] while on TF Monitor BG - goal of 140-180 Daily weights I was able to discuss plan with provider [facility] [id number] . Current Nutrition Regimen: Active Orders [...] time Site Days Naso/Oral Tube 10/30/23 1200 [place] sump;orogastric left mouth 10/30/23 1200 left mouth [...] encounter: 121.5 kg (267 lb 13.7 oz). [place] Body Weight (IBW) (kg): 75.45 Wt Readings [...] you, Barbie Bernard. Benigno, MS, RD, LD, [facility] Clinical Nutrition * Plan of Care [...] 12:13 PM EDT Office of Care Management: VICE PRESIDENT OF RECRUITING received a SW Consult from nursing. VICE PRESIDENT OF RECRUITING attempted to call patient's spouse to have a conversation about finances. Left message. Patient's spouse, Alina [phone], was able to return my phone call. VICE PRESIDENT OF RECRUITING discussed with Alina the option to use financial assistance from [facility]. VICE PRESIDENT OF RECRUITING will leave a pamphlet regarding [facility] assistance, in patient's room. Patient's spouse is trying to get here on Monday to visit with her spouse, she does not drive. VICE PRESIDENT OF RECRUITING encouraged Alina to communicate with the insurance [...] surrogate would be surrogate decision maker per [place] decision making law. (Only good for 180 days) Any patient receiving care in [place] must abide by [place] law. The hierarchy for surrogate decision making [...] (i) The agent with financial power of assistant city attorney or a conservator appointed in accordance with RSA 464-A. (j) The guardian of the patient???s estate. 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) Prior ADLs & IADLs: Independent with all [...] were you homeless or living in a alf (including now)?: No In the past 12 months has the [employer] gas, oil, or water [employer] threatened to shut off services in your [...] walker and cane) Home Address confirmed as: [address] [place] [phone] Social & Family Supports: All names listed [...] points: Addiction likely Health/Prescription Coverage: Primary Insurance: [facility] Payor: [facility] / Plan: [facility] / Product Type: *No Product type* / Secondary Insurance: N/A ; Prescription Coverage: Yes Preferred Pharmacy: [facility] [address] [place] [id number] Status: Patient is a : No Primary Care Provider confirmed: Bandar Hahn MD [phone] Patient/Caregiver Goals of Treatment: return home to family Potential Needs for Transition of Care: home health care Agency Referrals: I have met with the workforce services representative to: discuss discharge planning needs. provide the [facility], Office of Care Management letter from the Military Equipment Specialist pertaining to rehab referrals. provide a letter describing our affiliations within the [facility] and educate about their right to choose where referrals are sent. provide a list of Home Health Agencies / Durable Medical Equipment vendors which serve their preferred geographic area. provided patient with [facility] Star Quality Rating handout. They have requested referrals to: [facility] - [address], [place] [address] and Note routed to a Disc Pad Plate Filler who will communicate referrals to facilities and [...] service Plan going forward: Referral sent to [facility] for financial resources/support. Will [...] Russo is a 47 y.o. male from [place], [place], with PMH significant for ASCVD-CAD (2019 STEMI w/PCI - RCA stent, then occluded and re-stented 05/2023), CKD (eGFR 33), IDDM2 poorly controlled (A1c 11.2% 05/2023), who was admitted on 10/30/2023 currently being treated for re- occlusion of stents, now s/p 10/29 CABG X3. We are being consulted to assist with diabetes management and to provide a review of superintendent circus diabetes care. Inpatient, he is requiring high-amounts of insulin with poor glucose control. Ambrocio is intubated, so history obtained from 05/2023 admission, seen by [facility], and [facility] chart. We can confirm his home routines when extubated. Diabetes History: Hayden Russo has had diabetes since 2003 per prior DM consult. Current outpatient diabetes regimen: Diabetes Provider: PCP; Medications: Per [facility] dispense records - needs verifying with patient [...] Regular insulin for hyperkalemia; Norepinephrine in D5% 10/29-10/30); ROS: Unable to obtain - intubated. PMH [...] 1-5 Microcyte 6-10 Polychromasia Present Ovalocytes 1-5 Marylou cells 1-5 Blood Gas, Arterial POC Result [...] 2356 10/30/23 2302 10/30/23 2236 10/30/23 2206 09/09/205310/30/232003 POCGLU 177 196 208* 273* 303* 330* [...] also on his list. [facility] also notes [id number] QD for >1year with recent dispense dates, [...] Diet: NPO Lab: Recommend updated A1c Discharge Planning/retirement diabetes care: Medications - Outpatient treatment regimen [...] the consulting service. Michelle Pretty APRN, DNP, -[facility] Inpatient Diabetes Management Team Team pager #[phone] * Plan of Care - Fritz Cabral RN - 10/31/2023 3:33 AM EDT OUTCOME EVALUATION NOTE: OUTCOME SUMMARY: Pt received intubated/sedated. ST on tele, Vasoactive medications titrated per MAR with guidance from convention services manager provider: Vasopressin added, High concentration Norepinephrine ordered [...] Operative Note Patient Name: Hayden Russo : [id number] MR#: [id number] Case Date: 10/30/2023 Surgeon: Surgeons and Role: * Timi Person MD - Primary * He Styles PA - Physician Safety Spec * Naila Rodríguez PA - Physician Safety Spec Preoperative diagnosis: ASCVD Postoperative diagnosis: ASCVD, severe [...] (L) Specimens removed during surgery: None Disposition: [facility] Condition: doing well without problems Attestation: Case Date: 10/30/2023 I was present and I participated during the entire procedure (does not need to include opening and closing). Timi Person MD [phone] * Op Note - Timi Person MD - 10/30/2023 8:47 AM EDT [facility] Operative Note Patient Name: Hayden Russo : [id number] MR#: [id number] Case Date: 10/30/2023 Surgeon: Surgeons and Role: * Timi Person MD - Primary * He Styles PA - Physician Safety Spec * Naila Rodríguez PA - Physician Safety Spec Preoperative diagnosis: ASCVD Postoperative diagnosis: ASCVD, severe [...] (L) Specimens removed during surgery: None Disposition: [facility] Procedure Description: The patient was brought to [...] AM EST Office Visit [place] [address] Donavon Frey MD [facility] [address] 02/06/2024 1:00 PM EST Office Visit Cardiology at [address] [phone] Adrian Tello MD [facility] [place] [address] 04/25/2024 10:30 AM EST Office Visit Sleep Center at [facility] [address] [place] [phone] Maria De Jesus Lange APRN [facility] [place] [address] Pending Results Name Type Priority Associated Diagnoses [...] EDT BLOOD GAS ARTERIAL POC Routine 4 6:46 AM EDT BLOOD GAS ARTERIAL POC [...] EDT BLOOD GAS ARTERIAL POC Routine 4 5:59 PM EDT HEPARIN (UNFRACTIONATED) LEVEL Timed 11/11/2023 5:57 PM EDT POC, GLUCOSE Routine 11/11/2023 4:34 PM EDT BLOOD GAS ARTERIAL POC Routine 4 11:58 AM EDT XR ABDOMEN 1 VIEW Routine 11/11/2023 9:5 2 AM EDT POC, GLUCOSE Routine 11/11/2023 8:42 AM EDT LIPASE Routine 11/11/2023 8:39 AM EDT AMYLASE Routine 11/11/2023 8:39 AM EDT HEPATIC FUNCTION PANEL Routine 4 8:39 AM EDT BLOOD GAS ARTERIAL POC [...] 10:03 PM EDT Coronary artery disease involving dry creek coronary artery of dry creek heart without angina pectoris BLOOD GAS ARTERIAL [...] 10:03 PM EDT Coronary artery disease involving dry creek coronary artery of dry creek heart without angina pectoris BLOOD GAS ARTERIAL [...] 2:03 PM EDT Coronary artery disease involving dry creek coronary artery of dry creek heart without angina pectoris URINALYSIS BEAKER MICROSCOPIC ([facility]) Routine 11/04/2023 11:54 AM EDT _URINALYSIS WITH [...] GAS ARTERIAL POC Routine 1:38 AM EDT TROPONIN - SINGLE Timed [...] PM EDT BLOOD GAS ARTERIAL POC Routine 5:03 PM EDT HEMOGLOBIN Routine 10/30/2023 4:57 [...] 12:48 PM EDT Coronary artery disease involving dry creek coronary artery of dry creek heart without angina pectoris BLOOD GAS ARTERIAL [...] 10/30/2023 8:24 AM EDT Cabg, Artery-Vein, Two ([id number]) 10/30/2023 7:36 AM EDT ASCVD Cabg, Arterial, Single ([id number]) 10/30/2023 7:36 AM EDT ASCVD Endoscopy W/Video-Asst Vein Henning, Cabg ([id number]) 10/30/2023 7:36 AM EDT ASCVD COMPREHENSIVE METABOLIC PANEL Routine 10/30/2023 6:57 AM EDT 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 Blood CAPILLARY BLOOD / Unknown 11/18/2023 7:53 AM EDT 11/18/2023 7:53 AM EDT Timi Person MD POINT OF CARE TEST ORDERABLES Performing Organization Address City/[facility] [address]/ZIP Co de Phone Number [facility] [place] [address] * POC, GLUCOSE (11/18/2023 3:45 AM EDT) Glucometer, POC 98 65 - 199 mg/dL 11/18/2023 3:45 AM EDT [facility] Comment:Supplemental ranges: <140 mg/dL before meals <180 mg/dL all other times of the day. Blood CAPILLARY BLOOD / Unknown 11/18/2023 3:45 AM EDT 11/18/2023 3:45 AM EDT Timi Person MD POINT OF CARE TEST ORDERABLES [facility] [place] [address] * (ABNORMAL) Basic Metabolic Panel (11/18/2023 2:14 AM EDT) Glucose 110 65 - 199 mg/dL 11/18/2023 2:56 AM EDT [facility] Comment:Glucose Concentratio n >=200 mg/dL plus symptoms is consistent with Diabetes Mellitus. Blood Urea Nitrogen 48(H) 10 - 20 mg/dL 11/18/2023 2:56 AM [facility] Creatinine 3.24(H) 0.80 - 1.50 mg/dL 11/18/2023 2:56 AM [facility] Sodium 139 135 - 145 mMol/L 11/18/2023 2:56 AM [facility] Potassium 4.2 3.5 - 5.0 mMol/L 11/18/2023 2:56 AM [facility] Chloride 106 98 - 107 mMol/L 11/18/2023 2:56 AM [facility] Carbon Dioxide 21(L) 22 - 31 mMol/L 11/18/2023 2:56 AM [facility] Anion Gap 12 5 - 15 mMol/L 11/18/2023 2:56 AM [facility] Calcium 8.7 8.5 - 10.5 mg/dL 11/18/2023 2:56 AM [facility] Est Glomerular Filtration Rate - Male 23 mL/min/1. 73 m?? 11/18/2023 2:56 AM [facility] Comment: This patient's estimated GFR was [...] EDT Timi Person MD CHEMISTRY ORDERABLE S [facility] [place] [address] * (ABNORMAL) Phosphorus (11/18/2023 2:14 AM EDT) Phosphorus 4.8(H) 2.5 - 4.5 mg/dL 11/18/2023 2:56 AM EDT [facility] Blood VENOUS BLOOD SPECIMEN / Unknown IP Care Team Draw / Unknown 11/18/2023 2:14 AM EDT 11/18/2023 2:25 AM EDT Timi Person MD CHEMISTRY ORDERABLE S [facility] [place] [address] * Magnesium (11/18/2023 2:14 AM EDT) [facility] Magnesium 0.90 0.69 - 1.07 mMol/L 11/18/2023 2:56 AM EDT [facility] Blood VENOUS BLOOD SPECIMEN / Unknown IP Care Team Draw / Unknown 11/18/2023 2:14 AM EDT 11/18/2023 2:25 AM EDT Timi Person MD CHEMISTRY ORDERABLE S Performing Organization Address City/[facility] [address]/ZIP Co de Phone Number [facility] [place] [address] * POC, GLUCOSE (11/17/2023 11:32 PM EDT) [facility] Glucometer, POC 117 65 - 199 mg/dL 11/17/2023 11:32 PM EDT [facility] Comment:Supplemental ranges: <140 mg/dL before meals <180 mg/dL all other times of the day. Blood CAPILLARY BLOOD / Unknown 11/17/2023 11:32 PM EDT 11/17/2023 11:33 PM EDT Timi Person MD POINT OF CARE TEST ORDERABLES [facility] [place] [address] * POC, GLUCOSE (11/17/2023 7:13 PM EDT) Glucometer, POC 135 65 - 199 mg/dL 11/17/2023 7:13 PM EDT [facility] Comment:Supplemental ranges: <140 mg/dL before meals <180 mg/dL all other times of the day. Blood CAPILLARY BLOOD / Unknown 11/17/2023 7:13 PM EDT 11/17/2023 7:13 PM EDT Timi Person MD POINT OF CARE TEST ORDERABLES Performing Organization Address [facility] [address]/[facility] Co de Phone Number [facility] [place] [address] * POC, GLUCOSE (11/17/2023 4:33 PM EDT) Glucometer, POC 124 65 - 199 mg/dL 11/17/2023 4:33 PM EDT [facility] Comment:Supplemental ranges: <140 mg/dL before meals <180 mg/dL all other times of the day. Blood CAPILLARY BLOOD / Unknown 11/17/2023 4:33 PM EDT 11/17/2023 4:33 PM EDT Timi Person MD POINT OF CARE TEST ORDERABLES Performing Organization Address City/[facility] [address]/ZIP Co de Phone Number [facility] [place] [address] * (ABNORMAL) POC, GLUCOSE (11/17/2023 12:16 PM EDT) Glucometer, POC 208(H) 65 - 199 mg/dL 11/17/2023 12:16 PM EDT [facility] Comment:Supplemental ranges: <140 mg/dL before meals <180 mg/dL all other times of the day. Blood CAPILLARY BLOOD / Unknown 11/17/2023 12:16 PM EDT 11/17/2023 12:16 PM EDT Timi Person MD POINT OF CARE TEST ORDERABLES [facility] [place] [address] * XR Chest PA & Lateral (Generic) (11/17/2023 10:09 AM EDT) WORKSTATION ID [id number] RAD Anatomical Region Laterality Modality Chest N/A [...] who have questions please contact the health healthcare account manager that requested your imaging first. ? Narrative [...] patients who have questions please contactthe health healthcare account manager that requested your imaging first. Timi Person MD IMG DX ORDERABLES * POC, GLUCOSE (11/17/2023 8:08 AM EDT) [facility] Glucometer, POC 160 65 - 199 mg/dL 11/17/2023 8:09 AM EDT [facility] Comment:Supplemental ranges: <140 mg/dL before meals <180 mg/dL all other times of the day. Blood CAPILLARY BLOOD / Unknown 11/17/2023 8:08 AM EDT 11/17/2023 8:09 AM EDT Timi Person MD POINT OF CARE TEST ORDERABLES [facility] [place] [address] * (ABNORMAL) Basic Metabolic Panel (11/17/2023 5:10 AM EDT) Glucose 156 65 - 199 mg/dL 11/17/2023 7:30 AM EDT [facility] Comment:Glucose Concentratio n >=200 mg/dL plus symptoms is consistent with Diabetes Mellitus. Blood Urea Nitrogen 45(H) 10 - 20 mg/dL 11/17/2023 7:30 AM [facility] Creatinine 3.10(H) 0.80 - 1.50 mg/dL 11/17/2023 7:30 AM [facility] Sodium 139 135 - 145 mMol/L 11/17/2023 7:30 AM [facility] Potassium 4.2 3.5 - 5.0 mMol/L 11/17/2023 7:30 AM [facility] Chloride 102 98 - 107 mMol/L 11/17/2023 7:30 AM [facility] Carbon Dioxide 23 22 - 31 mMol/L 11/17/2023 7:30 AM [facility] Anion Gap 14 5 - 15 mMol/L 11/17/2023 7:30 AM [facility] Calcium 8.8 8.5 - 10.5 mg/dL 11/17/2023 7:30 AM [facility] Est Glomerular Filtration Rate - Male 24 mL/min/1. 73 m?? 11/17/2023 7:30 AM [facility] Comment: This patient's estimated GFR was [...] EDT Timi Person MD CHEMISTRY ORDERABLE S [facility] [place] [address] * Phosphorus (11/17/2023 5:10 AM EDT) Phosphorus 4.2 2.5 - 4.5 mg/dL 11/17/2023 5:52 AM EDT [facility] Blood VENOUS BLOOD SPECIMEN / Unknown IP Care Team Draw / Unknown 11/17/2023 5:10 AM EDT 11/17/2023 5:23 AM EDT Timi Person MD CHEMISTRY ORDERABLE S [facility] [place] [address] * Magnesium (11/17/2023 5:10 AM EDT) Magnesium 0.86 0.69 - 1.07 mMol/L 11/17/2023 5:52 AM EDT [facility] Blood VENOUS BLOOD SPECIMEN / Unknown IP Care Team Draw / Unknown 11/17/2023 5:10 AM EDT 11/17/2023 5:23 AM EDT Timi Person MD CHEMISTRY ORDERABLE S [facility] [place] [address] * POC, GLUCOSE (11/17/2023 4:05 AM EDT) Glucometer, POC 155 65 - 199 mg/dL 11/17/2023 4:06 AM EDT [facility] Comment:Supplemental ranges: <140 mg/dL before meals <180 mg/dL all other times of the day. Blood CAPILLARY BLOOD / Unknown 11/17/2023 4:05 AM EDT 11/17/2023 4:06 AM EDT Timi Person MD POINT OF CARE TEST ORDERABLES [facility] [place] [address] * POC, GLUCOSE (11/17/2023 12:04 AM EDT) Glucometer, POC 152 65 - 199 mg/dL 11/17/2023 12:05 AM EDT [facility] Comment:Supplemental ranges: <140 mg/dL before meals <180 mg/dL all other times of the day. Blood CAPILLARY BLOOD / Unknown 11/17/2023 12:04 AM EDT 11/17/2023 12:05 AM EDT Timi Person MD POINT OF CARE TEST ORDERABLES [facility] [place] [address] * (ABNORMAL) POC, GLUCOSE (11/16/2023 8:03 PM EDT) Glucometer, POC 262(H) 65 - 199 mg/dL 11/16/2023 8:04 PM EDT [facility] Comment:Supplemental ranges: <140 mg/dL before meals <180 mg/dL all other times of the day. Blood CAPILLARY BLOOD / Unknown 11/16/2023 8:03 PM EDT 11/16/2023 8:04 PM EDT Timi Person MD POINT OF CARE TEST ORDERABLES [facility] [place] [address] * (ABNORMAL) POC, GLUCOSE (11/16/2023 7:39 PM EDT) Glucometer, POC 274(H) 65 - 199 mg/dL 11/16/2023 7:39 PM EDT [facility] Comment:Supplemental ranges: <140 mg/dL before meals <180 mg/dL all other times of the day. Blood CAPILLARY BLOOD / Unknown 11/16/2023 7:39 PM EDT 11/16/2023 7:39 PM EDT Timi Person MD POINT OF CARE TEST ORDERABLES Performing Organization Address City/[facility] [address]/ZIP Co de Phone Number [facility] [place] [address] * POC, GLUCOSE (11/16/2023 5:02 PM EDT) Glucometer, POC 156 65 - 199 mg/dL 11/16/2023 5:02 PM EDT [facility] Comment:Supplemental ranges: <140 mg/dL before meals <180 mg/dL all other times of the day. Blood CAPILLARY BLOOD / Unknown 11/16/2023 5:02 PM EDT 11/16/2023 5:03 PM EDT Timi Person MD POINT OF CARE TEST ORDERABLES [facility] [place] [address] * (ABNORMAL) POC, GLUCOSE (11/16/2023 11:17 AM EDT) Glucometer, POC 214(H) 65 - 199 mg/dL 11/16/2023 11:18 AM EDT [facility] Comment:Supplemental ranges: <140 mg/dL before meals <180 mg/dL all other times of the day. Blood CAPILLARY BLOOD / Unknown 11/16/2023 11:17 AM EDT 11/16/2023 11:18 AM EDT Timi Person MD POINT OF CARE TEST ORDERABLES [facility] [place] [address] * POC, GLUCOSE (11/16/2023 8:16 AM EDT) Glucometer, POC 178 65 - 199 mg/dL 11/16/2023 8:17 AM EDT [facility] Comment:Supplemental ranges: <140 mg/dL before meals <180 mg/dL all other times of the day. Blood CAPILLARY BLOOD / Unknown 11/16/2023 8:16 AM EDT 11/16/2023 8:17 AM EDT Timi Person MD POINT OF CARE TEST ORDERABLES Performing Organization Address City/[facility] [address]/ZIP Co de Phone Number [facility] [place] [address] * POC, GLUCOSE (11/16/2023 6:22 AM EDT) Glucometer, POC 141 65 - 199 mg/dL 11/16/2023 6:22 AM EDT [facility] Comment:Supplemental ranges: <140 mg/dL before meals <180 mg/dL all other times of the day. Blood CAPILLARY BLOOD / Unknown 11/16/2023 6:22 AM EDT 11/16/2023 6:22 AM EDT Timi Person MD POINT OF CARE TEST ORDERABLES [facility] [place] [address] * POC, GLUCOSE (11/16/2023 3:07 AM EDT) Glucometer, POC 147 65 - 199 mg/dL 11/16/2023 3:08 AM EDT [facility] Comment:Supplemental ranges: <140 mg/dL before meals <180 mg/dL all other times of the day. Blood CAPILLARY BLOOD / Unknown 11/16/2023 3:07 AM EDT 11/16/2023 3:08 AM EDT Timi Person MD POINT OF CARE TEST ORDERABLES Performing Organization Address City/State/[facility] Co de Phone Number [facility] [place] [address] * (ABNORMAL) CBC (with Diff) (11/16/2023 1:29 AM EDT) White Blood Cell 10.34(H) 4.00 - 9.50 x10(3)/mc L 11/16/2023 2:16 AM EDT [facility] Red Blood Cell 4.27(L) 4.58 - 5.54 x10(6)/mc L 11/16/2023 2:16 AM EDT [facility] Hemoglobin 9.3(L) 13.7 - 16.5 g/dL 11/16/2023 2:16 AM EDT [facility] Hematocrit 30.2(L) 40.5 - 48.5 % 11/16/2023 2:16 AM EDT [facility] Mean Cell Volume 70.7(L) 82.9 - 93.1 fL 11/16/2023 2:16 AM EDT [facility] Mean Cell Hemoglobin 21.8(L) 27.5 - 32.1 pg 11/16/2023 2:16 AM EDT [facility] Mean Cell Hemoglobin Concentration 30.8(L) 32.0 - 35.7 g/dL 11/16/2023 2:16 AM EDT [facility] Platelet 498(H) 145 - 357 x10(3)/mc L 11/16/2023 2:16 AM EDT [facility] Mean Platelet Volume 10.3 7.6 - 12.9 fL 11/16/2023 2:16 AM [facility] RDW Standard Deviation 54.0(H) 36.0 - 45.0 fL 11/16/2023 2:16 AM [facility] RDW coefficient of variation 22.0(H) 11.4 - 13.8 % 11/16/2023 2:16 AM [facility] NRBC% auto 0.0 % 11/16/2023 2:16 AM [facility] NRBC Absolute <0.01 <0.01 x10(3)/mc L 11/16/2023 2:16 AM [facility] Neutrophil % 71.5 % 11/16/2023 2:16 AM [facility] Neutrophil Absolute (ANC) - Automated 7.39(H) 1.70 - 6.10 x10(3)/mc L 11/16/2023 2:16 AM [facility] Lymph % 16.5 % 11/16/2023 2:16 AM [facility] Lymph Absolute 1.71 0.90 - 3.20 x10(3)/mc L 11/16/2023 2:16 AM [facility] Monocyte % 8.0 % 11/16/2023 2:16 AM [facility] Monocyte Absolute 0.83 0.30 - 0.90 x10(3)/mc L 11/16/2023 2:16 AM [facility] Eos % 2.6 % 11/16/2023 2:16 AM [facility] Eos Absolute 0.27 0.00 - 0.40 x10(3)/mc L 11/16/2023 2:16 AM [facility] Basophil % 0.9 % 11/16/2023 2:16 AM [facility] Baso Absolute 0.09 0.00 - 0.10 x10(3)/mc L 11/16/2023 2:16 AM [facility] Immature Gran % 0.5 % 2:16 AM EDT [facility] Immature Gran Absolute 0.05(H) 0.00 - 0.04 x10(3)/mc L 11/16/2023 2:16 AM EDT [facility] Blood VENOUS BLOOD SPECIMEN / Unknown IP Care Team Draw / Unknown 11/16/2023 1:29 AM EDT 11/16/2023 1:39 AM EDT Timi Person MD HEMATOLOGY ORDERABL ES [facility] [place] [address] * (ABNORMAL) Basic Metabolic Panel (11/16/2023 1:29 AM EDT) Glucose 152 65 - 199 mg/dL 11/16/2023 2:13 AM EDT [facility] Comment:Glucose Concentratio n >=200 mg/dL plus symptoms is consistent with Diabetes Mellitus. Blood Urea Nitrogen 44(H) 10 - 20 mg/dL 11/16/2023 2:13 AM EDT [facility] Creatinine 3.52(H) 0.80 - 1.50 mg/dL 11/16/2023 2:13 AM EDT [facility] Sodium 140 135 - 145 mMol/L 11/16/2023 2:13 AM EDT [facility] Potassium 4.0 3.5 - 5.0 mMol/L 11/16/2023 2:13 AM EDT [facility] Chloride 102 98 - 107 mMol/L 11/16/2023 2:13 AM [facility] Carbon Dioxide 23 22 - 31 mMol/L 11/16/2023 2:[facility] Anion Gap 15 5 - 15 mMol/L 11/16/2023 2:13 AM [facility] Calcium 8.6 8.5 - 10.5 mg/dL 11/16/2023 2:13 AM EDT [facility] Est Glomerular Filtration Rate - Male 21 mL/min/1. 73 m?? 11/16/2023 2:13 AM EDT [facility] Comment: This patient's estimated [...] EDT Timi Person MD CHEMISTRY ORDERABLE S [facility] [place] [address] * (ABNORMAL) Phosphorus (11/16/2023 1:29 AM EDT) Phosphorus 4.6(H) 2.5 - 4.5 mg/dL 11/16/2023 2:13 AM EDT [facility] Blood VENOUS BLOOD SPECIMEN / Unknown IP Care Team Draw / Unknown 11/16/2023 1:29 AM EDT 11/16/2023 1:39 AM EDT Timi Person MD CHEMISTRY ORDERABLE S [facility] [place] [address] * Magnesium (11/16/2023 1:29 AM EDT) Magnesium 0.80 0.69 - 1.07 mMol/L 11/16/2023 2:13 AM EDT [facility] Blood VENOUS BLOOD SPECIMEN / Unknown IP Care Team Draw / Unknown 11/16/2023 1:29 AM EDT 11/16/2023 1:39 AM EDT Timi Person MD CHEMISTRY ORDERABLE S Performing Organization Address City/[facility] [address]/ZIP Co de Phone Number [facility] [place] [address] * POC, GLUCOSE (11/16/2023 12:25 AM EDT) Glucometer, POC 102 65 - 199 mg/dL 11/16/2023 12:25 AM EDT [facility] Comment:Supplemental ranges: <140 mg/dL before meals <180 mg/dL all other times of the day. Blood CAPILLARY BLOOD / Unknown 11/16/2023 12:25 AM EDT 11/16/2023 12:25 AM EDT Timi Person MD POINT OF CARE TEST ORDERABLES Performing Organization Address City/[facility] [address]/ZIP Co de Phone Number [facility] [place] [address] * (ABNORMAL) POC, GLUCOSE (11/15/2023 8:00 PM EDT) Glucometer, POC 233(H) 65 - 199 mg/dL 11/15/2023 8:00 PM EDT [facility] Comment:Supplemental ranges: <140 mg/dL before meals <180 mg/dL all other times of the day. Blood CAPILLARY BLOOD / Unknown 11/15/2023 8:00 PM EDT 11/15/2023 8:00 PM EDT Timi Person MD POINT OF CARE TEST ORDERABLES [facility] [place] [address] * (ABNORMAL) POC, GLUCOSE (11/15/2023 4:11 PM EDT) Glucometer, POC 208(H) 65 - 199 mg/dL 11/15/2023 4:11 PM EDT [facility] Comment:Supplemental ranges: <140 mg/dL before meals <180 mg/dL all other times of the day. Blood CAPILLARY BLOOD / Unknown 11/15/2023 4:11 PM EDT 11/15/2023 4:11 PM EDT Timi Person MD POINT OF CARE TEST ORDERABLES [facility] [place] [address] * (ABNORMAL) Ferritin (11/15/2023 4:09 PM EDT) Ferritin 555(H) 31 - 409 ng/ml 11/15/2023 5:33 PM EDT [facility] Blood VENOUS BLOOD SPECIMEN / Unknown IP Care Team Draw / Unknown 11/15/2023 4:09 PM EDT 11/15/2023 4:46 PM EDT Donavon Frey MD CHEMISTRY ORDERABLES [facility] [place] [address] * (ABNORMAL) Iron and TIBC (11/15/2023 4:09 PM EDT) Iron 27(L) 45 - 160 mcg/dL 11/15/2023 5:32 PM EDT [facility] TIBC 237(L) 250 - 450 mcg/dL 11/15/2023 5:32 PM EDT [facility] Iron Saturation 11(L) 20 - 50 % 5:32 PM EDT [facility] Blood VENOUS BLOOD SPECIMEN / Unknown IP Care Team Draw / Unknown 11/15/2023 4:09 PM EDT 11/15/2023 4:46 PM EDT Donavon Frey MD CHEMISTRY ORDERABLES Performing Organization Address City/[facility] [address]/ZIP Co de Phone Number [facility] [place] [address] * (ABNORMAL) POC, GLUCOSE (11/15/2023 12:05 PM EDT) Glucometer, POC 210(H) 65 - 199 mg/dL 11/15/2023 12:05 PM EDT [facility] Comment:Supplemental ranges: <140 mg/dL before meals <180 mg/dL all other times of the day. Blood CAPILLARY BLOOD / Unknown 11/15/2023 12:05 PM EDT 11/15/2023 12:05 PM EDT Timi Person MD POINT OF CARE TEST ORDERABLES Performing Organization Address [facility] [address]/ZIP Co de Phone Number [facility] [place] [address] * POC, GLUCOSE (11/15/2023 8:22 AM EDT) Glucometer, POC 154 65 - 199 mg/dL 11/15/2023 8:22 AM EDT [facility] Comment:Supplemental ranges: <140 mg/dL before meals <180 mg/dL all other times of the day. Blood CAPILLARY BLOOD / Unknown 11/15/2023 8:22 AM EDT 11/15/2023 8:23 AM EDT Timi Person MD POINT OF CARE TEST ORDERABLES Performing Organization Address City/[facility] [address]/ZIP Co de Phone Number [facility] [place] [address] * (ABNORMAL) POC, GLUCOSE (11/15/2023 3:52 AM EDT) Glucometer, POC 238(H) 65 - 199 mg/dL 11/15/2023 3:53 AM EDT [facility] Comment:Supplemental ranges: <140 mg/dL before meals <180 mg/dL all other times of the day. Blood CAPILLARY BLOOD / Unknown 11/15/2023 3:52 AM EDT 11/15/2023 3:53 AM EDT Timi Person MD POINT OF CARE TEST ORDERABLES [facility] [place] [address] * POC, GLUCOSE (11/15/2023 12:01 AM EDT) [facility] Glucometer, POC 153 65 - 199 mg/dL 11/15/2023 12:01 AM EDT [facility] Comment:Supplemental ranges: <140 mg/dL before meals <180 mg/dL all other times of the day. Blood CAPILLARY BLOOD / Unknown 11/15/2023 12:01 AM EDT 11/15/2023 12:01 AM EDT Timi Person MD POINT OF CARE TEST ORDERABLES [facility] [place] [address] * (ABNORMAL) CBC (with Diff) (11/15/2023 12:01 AM EDT) [facility] White Blood Cell 11.56(H) 4.00 - 9.50 x10(3)/mc L 11/15/2023 12:14 AM EDT [facility] Red Blood Cell 4.13(L) 4.58 - 5.54 x10(6)/mc L 11/15/2023 12:14 AM EDT [facility] Hemoglobin 9.0(L) 13.7 - 16.5 g/dL 11/15/2023 12:14 AM EDT [facility] Hematocrit 28.8(L) 40.5 - 48.5 % 11/15/2023 12:14 AM EDT [facility] Mean Cell Volume 69.7(L) 82.9 - 93.1 fL 11/15/2023 12:14 AM EDT [facility] Mean Cell Hemoglobin 21.8(L) 27.5 - 32.1 pg 11/15/2023 12:14 AM [facility] Mean Cell Hemoglobin Concentration 31.3(L) 32.0 - 35.7 g/dL 11/15/2023 12:14 AM [facility] Platelet 401(H) 145 - 357 x10(3)/mc L 11/15/2023 12:14 AM [facility] Mean Platelet Volume 10.0 7.6 - 12.9 fL 11/15/2023 12:14 AM [facility] RDW Standard Deviation 52.7(H) 36.0 - 45.0 fL 11/15/2023 12:14 AM [facility] RDW coefficient of variation 22.1(H) 11.4 - 13.8 % 11/15/2023 12:14 AM [facility] NRBC% auto 0.0 % 11/15/2023 12:14 AM [facility] NRBC Absolute <0.01 <0.01 x10(3)/mc L 11/15/2023 12:14 AM [facility] Neutrophil % 72.9 % 11/15/2023 12:14 AM [facility] Neutrophil Absolute (ANC) - Automated 8.44(H) 1.70 - 6.10 x10(3)/mc L 11/15/2023 12:14 AM [facility] Lymph % 14.4 % 11/15/2023 12:14 AM [facility] Lymph Absolute 1.66 0.90 - 3.20 x10(3)/mc L 11/15/2023 12:14 AM [facility] Monocyte % 9.1 % 11/15/2023 12:14 AM [facility] Monocyte Absolute 1.05(H) 0.30 - 0.90 x10(3)/mc L 11/15/2023 12:14 AM [facility] Eos % 2.1 % 11/15/2023 12:14 AM EDT [facility] Eos Absolute 0.24 0.00 - 0.40 x10(3)/mc L 11/15/2023 12:14 AM EDT [facility] Basophil % 0.8 % 11/15/2023 12:14 AM EDT [facility] Baso Absolute 0.09 0.00 - 0.10 x10(3)/mc L 11/15/2023 12:14 AM EDT [facility] Immature Gran % 0.7 % 12:14 AM EDT [facility] Immature Gran Absolute 0.08(H) 0.00 - 0.04 x10(3)/mc L 11/15/2023 12:14 AM EDT [facility] Blood VENOUS BLOOD SPECIMEN / Unknown IP Care Team Draw / Unknown 11/15/2023 12:01 AM EDT 11/15/2023 12:07 AM EDT Timi Person MD HEMATOLOGY ORDERABL ES [facility] [place] [address] * (ABNORMAL) Basic Metabolic Panel (11/15/2023 12:01 AM EDT) Glucose 158 65 - 199 mg/dL 11/15/2023 12:56 AM EDT [facility] Comment:Glucose Concentratio n >=200 mg/dL plus symptoms is consistent with Diabetes Mellitus. Blood Urea Nitrogen 41(H) 10 - 20 mg/dL 11/15/2023 12:56 AM EDT [facility] Creatinine 3.10(H) 0.80 - 1.50 mg/dL 11/15/2023 12:56 AM EDT [facility] Sodium 139 135 - 145 mMol/L 11/15/2023 12:56 AM EDT [facility] Potassium 4.1 3.5 - 5.0 mMol/L 11/15/2023 12:56 AM EDT [facility] Chloride 103 98 - 107 mMol/L 11/15/2023 12:56 AM EDT [facility] Carbon Dioxide 24 22 - 31 mMol/L 11/15/2023 12:56 AM EDT [facility] Anion Gap 12 5 - 15 mMol/L 11/15/2023 12:56 AM EDT [facility] Calcium 8.5 8.5 - 10.5 mg/dL 11/15/2023 12:56 AM EDT [facility] Est Glomerular Filtration Rate - Male 24 mL/min/1. 73 m?? 11/15/2023 12:56 AM EDT [facility] Comment: This patient's estimated [...] EDT Timi Person MD CHEMISTRY ORDERABLE S [facility] [place] [address] * (ABNORMAL) Phosphorus (11/15/2023 12:01 AM EDT) Phosphorus 4.7(H) 2.5 - 4.5 mg/dL 11/15/2023 12:41 AM EDT [facility] Blood VENOUS BLOOD SPECIMEN / Unknown IP Care Team Draw / Unknown 11/15/2023 12:01 AM EDT 11/15/2023 12:07 AM EDT Timi Person MD CHEMISTRY ORDERABLE S [facility] [place] [address] * Magnesium (11/15/2023 12:01 AM EDT) Magnesium 0.79 0.69 - 1.07 mMol/L 11/15/2023 12:41 AM EDT [facility] Blood VENOUS BLOOD SPECIMEN / Unknown IP Care Team Draw / Unknown 11/15/2023 12:01 AM EDT 11/15/2023 12:07 AM EDT Timi Person MD CHEMISTRY ORDERABLE S [facility] [place] [address] * (ABNORMAL) POC, GLUCOSE (11/14/2023 8:41 PM EDT) Glucometer, POC 221(H) 65 - 199 mg/dL 11/14/2023 8:41 PM EDT [facility] Comment:Supplemental ranges: <140 mg/dL before meals <180 mg/dL all other times of the day. Blood CAPILLARY BLOOD / Unknown 11/14/2023 8:41 PM EDT 11/14/2023 8:41 PM EDT Timi Person MD POINT OF CARE TEST ORDERABLES [facility] [place] [address] * (ABNORMAL) POC, GLUCOSE (11/14/2023 5:24 PM EDT) Glucometer, POC 217(H) 65 - 199 mg/dL 11/14/2023 5:24 PM EDT [facility] Comment:Supplemental ranges: <140 mg/dL before meals <180 mg/dL all other times of the day. Blood CAPILLARY BLOOD / Unknown 11/14/2023 5:24 PM EDT 11/14/2023 5:24 PM EDT Timi Person MD POINT OF CARE TEST ORDERABLES Performing Organization Address City/[facility] [address]/[facility] Co de Phone Number [facility] [place] [address] * (ABNORMAL) POC, GLUCOSE (11/14/2023 12:05 PM EDT) Glucometer, POC 208(H) 65 - 199 mg/dL 11/14/2023 12:05 PM EDT [facility] Comment:Supplemental ranges: <140 mg/dL before meals <180 mg/dL all other times of the day. Blood CAPILLARY BLOOD / Unknown 11/14/2023 12:05 PM EDT 11/14/2023 12:05 PM EDT Timi Person MD POINT OF CARE TEST ORDERABLES Performing Organization Address City/[facility] [address]/[facility] Co de Phone Number [facility] [place] [address] * (ABNORMAL) POC, GLUCOSE (11/14/2023 8:29 AM EDT) Glucometer, POC 260(H) 65 - 199 mg/dL 11/14/2023 8:29 AM EDT [facility] Comment:Supplemental ranges: <140 mg/dL before meals <180 mg/dL all other times of the day. Blood CAPILLARY BLOOD / Unknown 11/14/2023 8:29 AM EDT 11/14/2023 8:29 AM EDT Timi Person MD POINT OF CARE TEST ORDERABLES Performing Organization Address City/[facility] [address]/ZIP Co de Phone Number [facility] [place] [address] * POC, GLUCOSE (11/14/2023 4:42 AM EDT) [facility] Glucometer, POC 139 65 - 199 mg/dL 11/14/2023 4:42 AM EDT [facility] Comment:Supplemental ranges: <140 mg/dL before meals <180 mg/dL all other times of the day. Blood CAPILLARY BLOOD / Unknown 11/14/2023 4:42 AM EDT 11/14/2023 4:42 AM EDT Timi Person MD POINT OF CARE TEST ORDERABLES [facility] [place] [address] * (ABNORMAL) CBC (with Diff) (11/14/2023 12:10 AM EDT) [facility] White Blood Cell 13.52(H) 4.00 - 9.50 x10(3)/mc L 11/14/2023 12:28 [facility] Red Blood Cell 4.35(L) 4.58 - 5.54 x10(6)/mc L 11/14/2023 12:28 AM [facility] Hemoglobin 9.4(L) 13.7 - 16.5 g/dL 11/14/2023 12:28 AM [facility] Hematocrit 30.7(L) 40.5 - 48.5 % 11/14/2023 12:28 AM [facility] Mean Cell Volume 70.6(L) 82.9 - 93.1 fL 11/14/2023 12:28 AM [facility] Mean Cell Hemoglobin 21.6(L) 27.5 - 32.1 pg 11/14/2023 12:28 AM [facility] Mean Cell Hemoglobin Concentration 30.6(L) 32.0 - 35.7 g/dL 11/14/2023 12:28 AM [facility] Platelet 404(H) 145 - 357 x10(3)/mc L 11/14/2023 12:28 [facility] Mean Platelet Volume 10.4 7.6 - 12.9 fL 11/14/2023 12:28 AM [facility] RDW Standard Deviation 53.6(H) 36.0 - 45.0 fL 11/14/2023 12:28 AM [facility] RDW coefficient of variation 22.0(H) 11.4 - 13.8 % 11/14/2023 12:28 AM [facility] NRBC% auto 0.0 % 11/14/2023 12:28 AM [facility] NRBC Absolute <0.01 <0.01 x10(3)/mc L 11/14/2023 12:28 AM [facility] Neutrophil % 77.0 % 11/14/2023 12:28 AM [facility] Neutrophil Absolute (ANC) - Automated 10.40(H) 1.70 - 6.10 x10(3)/mc L 11/14/2023 12:28 AM [facility] Lymph % 11.1 % 11/14/2023 12:28 AM [facility] Lymph Absolute 1.50 0.90 - 3.20 x10(3)/mc L 11/14/2023 12:28 AM [facility] Monocyte % 9.5 % 11/14/2023 12:28 AM [facility] Monocyte Absolute 1.29(H) 0.30 - 0.90 x10(3)/mc L 11/14/2023 12:28 AM [facility] Eos % 0.9 % 11/14/2023 12:28 AM [facility] Eos Absolute 0.12 0.00 - 0.40 x10(3)/mc L 11/14/2023 12:28 AM [facility] Basophil % 0.4 % 11/14/2023 12:28 AM [facility] Baso Absolute 0.06 0.00 - 0.10 x10(3)/mc L 11/14/2023 12:28 AM EDT [facility] Immature Gran % 1.1 % 12:28 AM EDT [facility] Immature Gran Absolute 0.15(H) 0.00 - 0.04 x10(3)/mc L 11/14/2023 12:28 AM EDT [facility] Blood VENOUS BLOOD SPECIMEN / Unknown IP Care Team Draw / Unknown 11/14/2023 12:10 AM EDT 11/14/2023 12:19 AM EDT Timi Person MD HEMATOLOGY ORDERABL ES [facility] [place] [address] * (ABNORMAL) Basic Metabolic Panel (11/14/2023 12:10 AM EDT) Glucose 158 65 - 199 mg/dL 11/14/2023 12:49 AM EDT [facility] Comment:Glucose Concentratio n >=200 mg/dL plus symptoms is consistent with Diabetes Mellitus. Blood Urea Nitrogen 28(H) 10 - 20 mg/dL 11/14/2023 12:49 AM [facility] Creatinine 2.36(H) 0.80 - 1.50 mg/dL 11/14/2023 12:49 AM [facility] Sodium 139 135 - 145 mMol/L 11/14/2023 12:49 AM [facility] Potassium 4.5 3.5 - 5.0 mMol/L 11/14/2023 12:49 [facility] Chloride 103 98 - 107 mMol/L 11/14/2023 12:49 AM [facility] Carbon Dioxide 25 22 - 31 mMol/L 11/14/2023 12:49 AM [facility] Anion Gap 11 5 - 15 mMol/L 11/14/2023 12:49 AM [facility] Calcium 8.7 8.5 - 10.5 mg/dL 11/14/2023 12:49 AM EDT [facility] Est Glomerular Filtration Rate - Male 34 mL/min/1. 73 m?? 11/14/2023 12:49 AM EDT [facility] Comment: This patient's estimated [...] EDT Timi Person MD CHEMISTRY ORDERABLE S [facility] [place] [address] * Phosphorus (11/14/2023 12:10 AM EDT) Phosphorus 3.9 2.5 - 4.5 mg/dL 11/14/2023 12:49 AM EDT [facility] Blood VENOUS BLOOD SPECIMEN / Unknown IP Care Team Draw / Unknown 11/14/2023 12:10 AM EDT 11/14/2023 12:19 AM EDT Timi Person MD CHEMISTRY ORDERABLE S [facility] [place] [address] * Magnesium (11/14/2023 12:10 AM EDT) Magnesium 0.76 0.69 - 1.07 mMol/L 11/14/2023 12:49 AM EDT [facility] Blood VENOUS BLOOD SPECIMEN / Unknown IP Care Team Draw / Unknown 11/14/2023 12:10 AM EDT 11/14/2023 12:19 AM EDT Timi Person MD CHEMISTRY ORDERABLE S [facility] [place] [address] * POC, GLUCOSE (11/13/2023 11:53 PM EDT) Glucometer, POC 146 65 - 199 mg/dL 11/13/2023 11:53 PM EDT [facility] Comment:Supplemental ranges: <140 mg/dL before meals <180 mg/dL all other times of the day. Blood CAPILLARY BLOOD / Unknown 11/13/2023 11:53 PM EDT 11/13/2023 11:53 PM EDT Timi Person MD POINT OF CARE TEST ORDERABLES Performing Organization Address City/[facility] [address]/ZIP Co de Phone Number [facility] [place] [address] * (ABNORMAL) POC, GLUCOSE (11/13/2023 9:01 PM EDT) Glucometer, POC 201(H) 65 - 199 mg/dL 11/13/2023 9:01 PM EDT [facility] Comment:Supplemental ranges: <140 mg/dL before meals <180 mg/dL all other times of the day. Blood CAPILLARY BLOOD / Unknown 11/13/2023 9:01 PM EDT 11/13/2023 9:02 PM EDT Timi Person MD POINT OF CARE TEST ORDERABLES [facility] [place] [address] * POC, GLUCOSE (11/13/2023 4:29 PM EDT) Glucometer, POC 147 65 - 199 mg/dL 11/13/2023 4:30 PM EDT [facility] Comment:Supplemental ranges: <140 mg/dL before meals <180 mg/dL all other times of the day. Blood CAPILLARY BLOOD / Unknown 11/13/2023 4:29 PM EDT 11/13/2023 4:30 PM EDT Timi Person MD POINT OF CARE TEST ORDERABLES [facility] [place] [address] * (ABNORMAL) Basic Metabolic Panel (11/13/2023 4:05 PM EDT) Glucose 184 65 - 199 mg/dL 11/13/2023 5:18 PM EDT [facility] Comment:Glucose Concentratio n >=200 mg/dL plus symptoms is consistent with Diabetes Mellitus. Blood Urea Nitrogen 24(H) 10 - 20 mg/dL 11/13/2023 5:18 PM EDT [facility] Creatinine 1.93(H) 0.80 - 1.50 mg/dL 11/13/2023 5:18 PM EDT [facility] Sodium 140 135 - 145 mMol/L 11/13/2023 5:18 PM EDT [facility] Potassium 4.7 3.5 - 5.0 mMol/L 11/13/2023 5:18 PM EDT [facility] Chloride 105 98 - 107 mMol/L 11/13/2023 5:18 PM EDT [facility] Carbon Dioxide 23 22 - 31 mMol/L 11/13/2023 5:18 PM EDT [facility] Anion Gap 12 5 - 15 mMol/L 11/13/2023 5:18 PM EDT [facility] Calcium 8.7 8.5 - 10.5 mg/dL 11/13/2023 5:18 PM EDT [facility] Est Glomerular Filtration Rate - Male 43 mL/min/1. 73 m?? 11/13/2023 5:18 PM EDT [facility] Comment: This patient's estimated [...] APRN CHEMISTRY ORDERABL ES Performing Organization Address City/[facility] [address]/ZIP Co de Phone Number [facility] [place] [address] * (ABNORMAL) POC, GLUCOSE (11/13/2023 12:16 PM EDT) Glucometer, POC 206(H) 65 - 199 mg/dL 11/13/2023 12:18 PM EDT [facility] Comment:Supplemental ranges: <140 mg/dL before meals <180 mg/dL all other times of the day. Blood CAPILLARY BLOOD / Unknown 11/13/2023 12:16 PM EDT 11/13/2023 12:18 PM EDT Timi Person MD POINT OF CARE TEST ORDERABLES [facility] [place] [address] * POC, GLUCOSE (11/13/2023 9:25 AM EDT) Glucometer, POC 182 65 - 199 mg/dL 11/13/2023 9:25 AM EDT [facility] Comment:Supplemental ranges: <140 mg/dL before meals <180 mg/dL all other times of the day. Blood CAPILLARY BLOOD / Unknown 11/13/2023 9:25 AM EDT 11/13/2023 9:25 AM EDT Timi Person MD POINT OF CARE TEST ORDERABLES [facility] [place] [address] * (ABNORMAL) Blood Gas, Arterial (11/13/2023 6:35 AM EDT) pH, Arterial 7.44 7.35 - 7.45 11/13/2023 6:46 AM EDT [facility] PCO2, Arterial 37 35 - 45 mmHg 11/13/2023 6:46 AM EDT [facility] PO2, Arterial 108(H) 85 - 104 mmHg 11/13/2023 6:46 AM EDT [facility] Bicarbonate, Arterial 25.0 20.0 - 26.0 mmol/L 11/13/2023 6:46 AM EDT [facility] Base Excess, Arterial 0.9 -3.0 - 3.0 mmol/L 11/13/2023 6:[facility] Hemoglobin, Arterial 9.0(L) 13.7 - 16.5 g/dL 11/13/2023 6:46 AM EDT [facility] Oxyhemoglobin, Arterial 97.1(H) 94.0 - 97.0 % 11/13/2023 6:46 AM EDT [facility] Carboxyhemoglobin , Arterial 0.3 % 11/13/2023 6:46 AM [facility] Comment: Nonsmokers: 0.5-1.5% COHB ?? Smokers: Variable ??but usually less than 10% ?? Toxic: 20-30% COHB ?? Lethal: Greater than 60% COHB Methemoglobin, Arterial 0.1 <=1.5 % 11/13/2023 6:46 AM EDT [facility] Sodium, Arterial 138 135 - 145 mmol/L 11/13/2023 6:46 AM EDT [facility] IONIZED CALCIUM, ARTERIAL 1.18 1.15 - 1.33 mmol/L 11/13/2023 6:46 AM EDT [facility] Chloride, Arterial 105 98 - 107 mmol/L 11/13/2023 6:46 AM EDT [facility] Potassium, Arterial 4.3 3.5 - 5.0 mmol/L 11/13/2023 6:46 AM EDT [facility] Glucose, Arterial 125 65 - 199 mg/dL 11/13/2023 6:46 AM EDT [facility] Comment:Glucose Concentratio n >=200 mg/dL plus symptoms is consistent with Diabetes Mellitus. Lactate, Arterial 0.8 0.5 - 2.2 mmol/L 11/13/2023 6:46 AM EDT [facility] Blood ARTERIAL BLOOD / Unknown IP Care Team Draw / Unknown 11/13/2023 6:35 AM EDT 11/13/2023 6:40 AM EDT Calos Lazo MD CHEMISTRY ORDERABLES [facility] [place] [address] * Heparin (unfractionated) Level (11/13/2023 6:33 AM EDT) UF Heparin 0.10 IU/mL 11/13/2023 6:51 AM EDT [facility] Comment: Heparin (anti-Xa) levels should be [...] APRN HEMATOLOGY ORDERAB LES Performing Organization Address City/[facility] [address]/ZIP Co de Phone Number [facility] [place] [address] * POC, GLUCOSE (11/13/2023 4:02 AM EDT) Glucometer, POC 137 65 - 199 mg/dL 11/13/2023 4:03 AM EDT [facility] Comment:Supplemental ranges: <140 mg/dL before meals <180 mg/dL all other times of the day. Blood CAPILLARY BLOOD / Unknown 11/13/2023 4:02 AM EDT 11/13/2023 4:03 AM EDT Timi Person MD POINT OF CARE TEST ORDERABLES Performing Organization Address City/[facility] [address]/[facility] Co de Phone Number [facility] [place] [address] * (ABNORMAL) Blood Gas, Arterial (11/13/2023 12:10 AM EDT) pH, Arterial 7.49(H) 7.35 - 7.45 11/13/2023 12:21 AM EDT [facility] PCO2, Arterial 34(L) 35 - 45 mmHg 11/13/2023 12:21 AM EDT [facility] PO2, Arterial 81(L) 85 - 104 mmHg 11/13/2023 12:21 AM EDT [facility] Bicarbonate, Arterial 25.0 20.0 - 26.0 mmol/L 11/13/2023 12:21 AM [facility] Base Excess, Arterial 1.7 -3.0 - 3.0 mmol/L 11/13/2023 12:21 AM [facility] Hemoglobin, Arterial 9.3(L) 13.7 - 16.5 g/dL 11/13/2023 12:21 AM [facility] Oxyhemoglobin, Arterial 95.2 94.0 - 97.0 % 11/13/2023 12:21 AM [facility] Carboxyhemoglobin , Arterial 0.3 % 11/13/2023 12:21 AM [facility] Comment: Nonsmokers: 0.5-1.5% COHB ?? Smokers: Variable ??but usually less than 10% ?? Toxic: 20-30% COHB ?? Lethal: Greater than 60% COHB Methemoglobin, Arterial 0.3 <=1.5 % 11/13/2023 12:21 AM [facility] Sodium, Arterial 137 135 - 145 mmol/L 11/13/2023 12:21 AM [facility] IONIZED CALCIUM, ARTERIAL 1.17 1.15 - 1.33 mmol/L 11/13/2023 12:21 AM [facility] Chloride, Arterial 108(H) 98 - 107 mmol/L 11/13/2023 12:21 AM [facility] Potassium, Arterial 4.3 3.5 - 5.0 mmol/L 11/13/2023 12:21 AM [facility] Glucose, Arterial 96 65 - 199 mg/dL 11/13/2023 12:21 AM [facility] Comment:Glucose Concentratio n >=200 mg/dL plus symptoms is consistent with Diabetes Mellitus. Lactate, Arterial 0.8 0.5 - 2.2 mmol/L 11/13/2023 12:21 AM [facility] Blood ARTERIAL BLOOD / Unknown IP Care Team Draw / Unknown 11/13/2023 12:10 AM EDT 11/13/2023 12:19 AM EDT Calos Lazo MD CHEMISTRY ORDERABLES Performing Organization Address [facility] [address]/[facility] Co de Phone Number [facility] [place] [address] * Heparin (unfractionated) Level (11/13/2023 12:09 AM EDT) UF Heparin <0.04 IU/mL 11/13/2023 12:40 AM EDT [facility] Comment: Heparin (anti-Xa) levels should be [...] APRN HEMATOLOGY ORDERAB LES Performing Organization Address [facility] [address]/ZIP Co de Phone Number [facility] [place] [address] * (ABNORMAL) CBC (with Diff) (11/13/2023 12:09 AM EDT) White Blood Cell 14.34(H) 4.00 - 9.50 x10(3)/mc L 11/13/2023 12:32 AM EDT [facility] Red Blood Cell 3.90(L) 4.58 - 5.54 x10(6)/mc L 11/13/2023 12:32 AM [facility] Hemoglobin 8.5(L) 13.7 - 16.5 g/dL 11/13/2023 12:32 AM [facility] Hematocrit 27.7(L) 40.5 - 48.5 % 11/13/2023 12:32 AM [facility] Mean Cell Volume 71.0(L) 82.9 - 93.1 fL 11/13/2023 12:32 AM [facility] Mean Cell Hemoglobin 21.8(L) 27.5 - 32.1 pg 11/13/2023 12:32 AM [facility] Mean Cell Hemoglobin Concentration 30.7(L) 32.0 - 35.7 g/dL 11/13/2023 12:32 AM [facility] Platelet 306 145 - 357 x10(3)/mc L 11/13/2023 12:32 AM [facility] Mean Platelet Volume 10.3 7.6 - 12.9 fL 11/13/2023 12:32 AM [facility] RDW Standard Deviation 54.1(H) 36.0 - 45.0 fL 11/13/2023 12:32 AM [facility] RDW coefficient of variation 21.8(H) 11.4 - 13.8 % 11/13/2023 12:32 AM [facility] NRBC% auto 0.0 % 11/13/2023 12:32 AM [facility] NRBC Absolute <0.01 <0.01 x10(3)/mc L 11/13/2023 12:32 AM [facility] Neutrophil % 78.8 % 11/13/2023 12:32 AM [facility] Neutrophil Absolute (ANC) - Automated 11.30(H) 1.70 - 6.10 x10(3)/mc L 11/13/2023 12:32 AM [facility] Lymph % 10.5 % 11/13/2023 12:32 AM EDT [facility] Lymph Absolute 1.50 0.90 - 3.20 x10(3)/mc L 11/13/2023 12:32 AM EDT [facility] Monocyte % 7.0 % 11/13/2023 12:32 AM EDT [facility] Monocyte Absolute 1.00(H) 0.30 - 0.90 x10(3)/mc L 11/13/2023 12:32 AM EDT [facility] Eos % 1.5 % 11/13/2023 12:32 AM EDT [facility] Eos Absolute 0.22 0.00 - 0.40 x10(3)/mc L 11/13/2023 12:32 AM EDT [facility] Basophil % 0.3 % 11/13/2023 12:32 AM EDT [facility] Baso Absolute 0.05 0.00 - 0.10 x10(3)/mc L 11/13/2023 12:32 AM EDT [facility] Immature Gran % 1.9 % 12:32 AM EDT [facility] Immature Gran Absolute 0.27(H) 0.00 - 0.04 x10(3)/mc L 11/13/2023 12:32 AM EDT [facility] Blood VENOUS BLOOD SPECIMEN / Unknown IP Care Team Draw / Unknown 11/13/2023 12:09 AM EDT 11/13/2023 12:18 AM EDT Timi Person MD HEMATOLOGY ORDERABL ES [facility] [place] [address] * Basic Metabolic Panel (11/13/2023 12:09 AM EDT) Glucose 96 65 - 199 mg/dL 11/13/2023 12:51 AM EDT [facility] Comment:Glucose Concentratio n >=200 mg/dL plus symptoms is consistent with Diabetes Mellitus. Blood Urea Nitrogen 18 10 - 20 mg/dL 11/13/2023 12:51 AM [facility] Creatinine 1.37 0.80 - 1.50 mg/dL 11/13/2023 12:51 AM [facility] Sodium 139 135 - 145 mMol/L 11/13/2023 12:51 AM [facility] Potassium 4.4 3.5 - 5.0 mMol/L 11/13/2023 12:51 AM [facility] Chloride 107 98 - 107 mMol/L 11/13/2023 12:51 AM [facility] Carbon Dioxide 24 22 - 31 mMol/L 11/13/2023 12:51 AM [facility] Anion Gap 8 5 - 15 mMol/L 11/13/2023 12:51 AM [facility] Calcium 8.5 8.5 - 10.5 mg/dL 11/13/2023 12:51 AM [facility] Est Glomerular Filtration Rate - Male 65 mL/min/1. 73 m?? 11/13/2023 12:51 AM [facility] Comment: This patient's estimated GFR was [...] EDT Timi Person MD CHEMISTRY ORDERABLE S [facility] [place] [address] * Phosphorus (11/13/2023 12:09 AM EDT) Phosphorus 3.0 2.5 - 4.5 mg/dL 11/13/2023 12:51 AM EDT [facility] Blood VENOUS BLOOD SPECIMEN / Unknown IP Care Team Draw / Unknown 11/13/2023 12:09 AM EDT 11/13/2023 12:18 AM EDT Timi Person MD CHEMISTRY ORDERABLE S Performing Organization Address City/[facility] [address]/ZIP Co de Phone Number [facility] [place] [address] * Magnesium (11/13/2023 12:09 AM EDT) Magnesium 0.75 0.69 - 1.07 mMol/L 11/13/2023 12:51 AM EDT [facility] Blood VENOUS BLOOD SPECIMEN / Unknown IP Care Team Draw / Unknown 11/13/2023 12:09 AM EDT 11/13/2023 12:18 AM EDT Timi Person MD CHEMISTRY ORDERABLE S Performing Organization Address City/[facility] [address]/ZIP Co de Phone Number [facility] [place] [address] * POC, GLUCOSE (11/13/2023 12:08 AM EDT) Glucometer, POC 91 65 - 199 mg/dL 11/13/2023 12:08 AM EDT [facility] Comment:Supplemental ranges: <140 mg/dL before meals <180 mg/dL all other times of the day. Blood CAPILLARY BLOOD / Unknown 11/13/2023 12:08 AM EDT 11/13/2023 12:09 AM EDT Timi Person MD POINT OF CARE TEST ORDERABLES [facility] [place] [address] * POC, GLUCOSE (11/12/2023 8:05 PM EDT) [facility] Glucometer, POC 109 65 - 199 mg/dL 11/12/2023 8:06 PM EDT [facility] Comment:Supplemental ranges: <140 mg/dL before meals <180 mg/dL all other times of the day. Blood CAPILLARY BLOOD / Unknown 11/12/2023 8:05 PM EDT 11/12/2023 8:06 PM EDT Timi Person MD POINT OF CARE TEST ORDERABLES Performing Organization Address City/[facility] [address]/ZIP Co de Phone Number [facility] [place] [address] * (ABNORMAL) Blood Gas, Arterial (11/12/2023 5:54 PM EDT) [facility] pH, Arterial 7.47(H) 7.35 - 7.45 11/12/2023 6:09 PM EDT [facility] PCO2, Arterial 31(L) 35 - 45 mmHg 11/12/2023 6:09 PM EDT [facility] PO2, Arterial 74(L) 85 - 104 mmHg 11/12/2023 6:09 PM EDT [facility] Bicarbonate, Arterial 21.7 20.0 - 26.0 mmol/L 11/12/2023 6:09 PM EDT [facility] Base Excess, Arterial -2.0 -3.0 - 3.0 mmol/L 11/12/2023 6:09 PM EDT [facility] Hemoglobin, Arterial 9.2(L) 13.7 - 16.5 g/dL 11/12/2023 6:09 PM EDT [facility] Oxyhemoglobin, Arterial 94.0 94.0 - 97.0 % 11/12/2023 6:09 PM EDT [facility] Carboxyhemoglobin , Arterial 0.3 % 11/12/2023 6:09 PM EDT [facility] Comment: Nonsmokers: 0.5-1.5% COHB ?? Smokers: Variable ??but usually less than 10% ?? Toxic: 20-30% COHB ?? Lethal: Greater than 60% COHB Methemoglobin, Arterial 0.1 <=1.5 % 11/12/2023 6:09 PM EDT [facility] Sodium, Arterial 139 135 - 145 mmol/L 11/12/2023 6:09 PM EDT [facility] IONIZED CALCIUM, ARTERIAL 1.15 1.15 - 1.33 mmol/L 11/12/2023 6:09 PM EDT [facility] Chloride, Arterial 106 98 - 107 mmol/L 11/12/2023 6:09 PM EDT [facility] Potassium, Arterial 4.0 3.5 - 5.0 mmol/L 11/12/2023 6:09 PM EDT [facility] Glucose, Arterial 103 65 - 199 mg/dL 11/12/2023 6:09 PM EDT [facility] Comment:Glucose Concentratio n >=200 mg/dL plus symptoms is consistent with Diabetes Mellitus. Lactate, Arterial 0.7 0.5 - 2.2 mmol/L 11/12/2023 6:09 PM EDT [facility] Blood ARTERIAL BLOOD / Unknown IP Care Team Draw / Unknown 11/12/2023 5:54 PM EDT 11/12/2023 6:06 PM EDT Calos Lazo MD CHEMISTRY ORDERABLES [facility] [place] [address] * POC, GLUCOSE (11/12/2023 4:27 PM EDT) Glucometer, POC 128 65 - 199 mg/dL 11/12/2023 4:28 PM EDT [facility] Comment:Supplemental ranges: <140 mg/dL before meals <180 mg/dL all other times of the day. Blood CAPILLARY BLOOD / Unknown 11/12/2023 4:27 PM EDT 11/12/2023 4:28 PM EDT Timi Person MD POINT OF CARE TEST ORDERABLES [facility] [place] [address] * (ABNORMAL) Blood Gas, Arterial POC (11/12/2023 12:02 PM EDT) pH, Arterial 7.49(H) 7.35 - 7.45 11/12/2023 12:05 PM EDT [facility] PCO2, Arterial 28(L) 35 - 45 mmHg 11/12/2023 12:05 PM EDT [facility] Bicarbonate, Arterial 21.2 20.0 - 26.0 mmol/L 11/12/2023 12:05 PM EDT [facility] Base Excess, Arterial -2.1 -3.0 - 3.0 mmol/L 11/12/2023 12:05 PM EDT [facility] Hemoglobin, Arterial 9.4(L) 13.7 - 16.5 g/dL 11/12/2023 12:05 PM EDT [facility] Oxyhemoglobin, Arterial 94.0 94.0 - 97.0 % 11/12/2023 12:05 PM EDT [facility] Carboxyhemoglobin , Arterial 0.4 % 11/12/2023 12:05 PM EDT [facility] Comment: Nonsmokers: 0.5-1.5% COHB ?? Smokers: Variable ??but usually less than 10% ?? Toxic: 20-30% COHB ?? Lethal: Greater than 60% COHB Methemoglobin, Arterial 0.3 <=1.5 % 11/12/2023 12:05 PM EDT [facility] Sodium, Arterial 138 135 - 145 mmol/L 11/12/2023 12:05 PM EDT [facility] Potassium, Arterial 3.9 3.5 - 5.0 mmol/L 11/12/2023 12:05 PM EDT [facility] Chloride, Arterial 107 98 - 107 mmol/L 11/12/2023 12:05 PM EDT [facility] Lactate, Arterial 0.7 0.5 - 2.2 mmol/L 11/12/2023 12:05 PM EDT [facility] Flow Rate 3.0 L/min 11/12/2023 12:05 PM EDT [facility] IONIZED CALCIUM, ARTERIAL 1.17 1.15 - 1.33 mmol/L 11/12/2023 12:05 PM EDT [facility] Glucose, Arterial 147 65 - 199 mg/dL 11/12/2023 12:05 PM EDT [facility] Comment:Glucose Concentratio n >=200 mg/dL plus symptoms is consistent with Diabetes Mellitus. Blood ARTERIAL BLOOD / Unknown 11/12/2023 12:02 PM EDT 11/12/2023 12:05 PM EDT Timi Person MD POINT OF CARE TEST ORDERABLES [facility] [place] [address] * POC, GLUCOSE (11/12/2023 8:12 AM EDT) Glucometer, POC 97 65 - 199 mg/dL 11/12/2023 8:12 AM EDT [facility] Comment:Supplemental ranges: <140 mg/dL before meals <180 mg/dL all other times of the day. Blood CAPILLARY BLOOD / Unknown 11/12/2023 8:12 AM EDT 11/12/2023 8:12 AM EDT Timi Person MD POINT OF CARE TEST ORDERABLES [facility] [place] [address] * (ABNORMAL) Blood Gas, Arterial POC (11/12/2023 6:46 AM EDT) pH, Arterial 7.48(H) 7.35 - 7.45 11/12/2023 6:49 AM [facility] PCO2, Arterial 28(L) 35 - 45 mmHg 11/12/2023 6:49 AM [facility] PO2, Arterial 11/12/2023 6:49 AM [facility] Comment:QUES Bicarbonate, Arterial 20.0 20.0 - 26.0 mmol/L 11/12/2023 6:49 AM [facility] Base Excess, Arterial -3.5(L) -3.0 - 3.0 mmol/L 11/12/2023 6:49 AM [facility] Hemoglobin, Arterial 8.0(L) 13.7 - 16.5 g/dL 11/12/2023 6:49 AM [facility] Oxyhemoglobin, Arterial 96.5 94.0 - 97.0 % 11/12/2023 6:49 AM [facility] Carboxyhemoglobin , Arterial 0.8 % 11/12/2023 6:49 AM [facility] Comment: Nonsmokers: 0.5-1.5% COHB ?? Smokers: Variable ??but usually less than 10% ?? Toxic: 20-30% COHB ?? Lethal: Greater than 60% COHB Methemoglobin, Arterial 0.3 <=1.5 % 11/12/2023 6:49 AM [facility] Sodium, Arterial 137 135 - 145 mmol/L 11/12/2023 6:49 AM [facility] Potassium, Arterial 3.6 3.5 - 5.0 mmol/L 11/12/2023 6:49 AM [facility] Chloride, Arterial 109(H) 98 - 107 mmol/L 11/12/2023 6:49 AM [facility] Lactate, Arterial 0.6 0.5 - 2.2 mmol/L 11/12/2023 6:49 AM [facility] Flow Rate 3.0 L/min 11/12/2023 6:49 AM EDT [facility] IONIZED CALCIUM, ARTERIAL 1.13(L) 1.15 - 1.33 mmol/L 11/12/2023 6:49 AM EDT [facility] Glucose, Arterial 87 65 - 199 mg/dL 11/12/2023 6:49 AM EDT [facility] Comment:Glucose Concentratio n >=200 mg/dL plus symptoms is consistent with Diabetes Mellitus. Blood ARTERIAL BLOOD / Unknown 11/12/2023 6:46 AM EDT 11/12/2023 6:49 AM EDT Timi Person MD POINT OF CARE TEST ORDERABLES [facility] [place] [address] * (ABNORMAL) Blood Gas, Arterial POC (11/12/2023 6:42 AM EDT) pH, Arterial 7.48(H) 7.35 - 7.45 11/12/2023 6:45 AM EDT [facility] PCO2, Arterial 32(L) 35 - 45 mmHg 11/12/2023 6:45 AM EDT [facility] PO2, Arterial 11/12/2023 6:45 AM EDT [facility] Comment:QUES Bicarbonate, Arterial 23.1 20.0 - 26.0 mmol/L 11/12/2023 6:45 AM EDT [facility] Base Excess, Arterial -0.5 -3.0 - 3.0 mmol/L 11/12/2023 6:45 AM EDT [facility] Hemoglobin, Arterial 8.1(L) 13.7 - 16.5 g/dL 11/12/2023 6:45 AM EDT [facility] Oxyhemoglobin, Arterial 95.8 94.0 - 97.0 % 11/12/2023 6:45 AM EDT [facility] Carboxyhemoglobin , Arterial 0.5 % 11/12/2023 6:45 AM EDT [facility] Comment: Nonsmokers: 0.5-1.5% COHB ?? Smokers: Variable ??but usually less than 10% ?? Toxic: 20-30% COHB ?? Lethal: Greater than 60% COHB Methemoglobin, Arterial 0.3 <=1.5 % 11/12/2023 6:45 AM EDT [facility] Sodium, Arterial 138 135 - 145 mmol/L 11/12/2023 6:45 AM EDT [facility] Potassium, Arterial 3.6 3.5 - 5.0 mmol/L 11/12/2023 6:45 AM EDT [facility] Chloride, Arterial 110(H) 98 - 107 mmol/L 11/12/2023 6:45 AM EDT [facility] Lactate, Arterial 0.7 0.5 - 2.2 mmol/L 11/12/2023 6:45 AM EDT [facility] Flow Rate 3.0 L/min 11/12/2023 6:45 AM EDT [facility] IONIZED CALCIUM, ARTERIAL 1.11(L) 1.15 - 1.33 mmol/L 11/12/2023 6:45 AM EDT [facility] Glucose, Arterial 91 65 - 199 mg/dL 11/12/2023 6:45 AM EDT [facility] Comment:Glucose Concentratio n >=200 mg/dL plus symptoms is consistent with Diabetes Mellitus. Blood ARTERIAL BLOOD / Unknown 11/12/2023 6:42 AM EDT 11/12/2023 6:45 AM EDT Timi Person MD POINT OF CARE TEST ORDERABLES [facility] [place] [address] * POC, GLUCOSE (11/12/2023 4:07 AM EDT) [facility] Signature Glucometer, POC 85 65 - 199 mg/dL 11/12/2023 4:07 AM EDT [facility] Comment:Supplemental ranges: <140 mg/dL before meals <180 mg/dL all other times of the day. Blood CAPILLARY BLOOD / Unknown 11/12/2023 4:07 AM EDT 11/12/2023 4:07 AM EDT Timi Person MD POINT OF CARE TEST ORDERABLES Performing Organization Address [facility] [address]/[facility] Co de Phone Number [facility] [place] [address] * POC, GLUCOSE (11/12/2023 2:04 AM EDT) Glucometer, POC 82 65 - 199 mg/dL 11/12/2023 2:05 AM EDT [facility] Comment:Supplemental ranges: <140 mg/dL before meals <180 mg/dL all other times of the day. Blood CAPILLARY BLOOD / Unknown 11/12/2023 2:04 AM EDT 11/12/2023 2:05 AM EDT Timi Person MD POINT OF CARE TEST ORDERABLES Performing Organization Address [facility] [address]/[facility] de Phone Number [facility] [place] [address] * (ABNORMAL) Blood Gas, Arterial POC (11/12/2023 12:12 AM EDT) pH, Arterial 7.49(H) 7.35 - 7.45 11/12/2023 12:13 AM EDT [facility] PCO2, Arterial 32(L) 35 - 45 mmHg 11/12/2023 12:13 AM EDT [facility] PO2, Arterial 93 85 - 104 mmHg 11/12/2023 12:13 AM EDT [facility] Bicarbonate, Arterial 24.0 20.0 - 26.0 mmol/L 11/12/2023 12:13 AM EDT [facility] Base Excess, Arterial 0.6 -3.0 - 3.0 mmol/L 11/12/2023 12:13 AM [facility] Hemoglobin, Arterial 9.6(L) 13.7 - 16.5 g/dL 11/12/2023 12:13 AM [facility] Oxyhemoglobin, Arterial 96.4 94.0 - 97.0 % 11/12/2023 12:13 AM [facility] Carboxyhemoglobin , Arterial 0.3 % 11/12/2023 12:13 AM [facility] Comment: Nonsmokers: 0.5-1.5% COHB ?? Smokers: Variable ??but usually less than 10% ?? Toxic: 20-30% COHB ?? Lethal: Greater than 60% COHB Methemoglobin, Arterial 0.3 <=1.5 % 11/12/2023 12:13 AM [facility] Sodium, Arterial 139 135 - 145 mmol/L 11/12/2023 12:13 AM [facility] Potassium, Arterial 3.7 3.5 - 5.0 mmol/L 11/12/2023 12:13 AM [facility] Chloride, Arterial 110(H) 98 - 107 mmol/L 11/12/2023 12:13 AM [facility] Lactate, Arterial 0.7 0.5 - 2.2 mmol/L 11/12/2023 12:13 AM [facility] Flow Rate 3.0 L/min 11/12/2023 12:13 AM [facility] IONIZED CALCIUM, ARTERIAL 1.13(L) 1.15 - 1.33 mmol/L 11/12/2023 12:13 AM [facility] Glucose, Arterial 72 65 - 199 mg/dL 11/12/2023 12:13 AM [facility] Comment:Glucose Concentratio n >=200 mg/dL plus symptoms is consistent with Diabetes Mellitus. Blood ARTERIAL BLOOD / Unknown 11/12/2023 12:12 AM EDT 11/12/2023 12:13 AM EDT Timi Person MD POINT OF CARE TEST ORDERABLES Performing Organization Address [facility] [address]/[facility] Co de Phone Number [facility] [place] [address] * Heparin (unfractionated) Level (11/12/2023 12:09 AM EDT) UF Heparin 0.13 IU/mL 11/12/2023 12:39 AM EDT [facility] Comment: Heparin (anti-Xa) levels should be [...] APRN HEMATOLOGY ORDERAB LES Performing Organization Address City/[facility] [address]/ZIP Co de Phone Number [facility] [place] [address] * (ABNORMAL) CBC (with Diff) (11/12/2023 12:09 AM EDT) White Blood Cell 15.72(H) 4.00 - 9.50 x10(3)/mc L 11/12/2023 12:30 AM EDT [facility] Red Blood Cell 3.87(L) 4.58 - 5.54 x10(6)/mc L 11/12/2023 12:30 AM [facility] Hemoglobin 8.4(L) 13.7 - 16.5 g/dL 11/12/2023 12:30 AM [facility] Hematocrit 27.4(L) 40.5 - 48.5 % 11/12/2023 12:30 AM [facility] Mean Cell Volume 70.8(L) 82.9 - 93.1 fL 11/12/2023 12:30 AM [facility] Mean Cell Hemoglobin 21.7(L) 27.5 - 32.1 pg 11/12/2023 12:30 AM [facility] Mean Cell Hemoglobin Concentration 30.7(L) 32.0 - 35.7 g/dL 11/12/2023 12:30 AM [facility] Platelet 310 145 - 357 x10(3)/mc L 11/12/2023 12:30 AM [facility] Mean Platelet Volume 10.7 7.6 - 12.9 fL 11/12/2023 12:30 AM [facility] RDW Standard Deviation 53.7(H) 36.0 - 45.0 fL 11/12/2023 12:30 AM [facility] RDW coefficient of variation 21.9(H) 11.4 - 13.8 % 11/12/2023 12:30 AM [facility] NRBC% auto 0.1 % 11/12/2023 12:30 AM [facility] NRBC Absolute 0.02(H) <0.01 x10(3)/mc L 11/12/2023 12:30 AM [facility] Neutrophil % 79.6 % 11/12/2023 12:30 AM [facility] Neutrophil Absolute (ANC) - Automated 12.49(H) 1.70 - 6.10 x10(3)/mc L 11/12/2023 12:30 AM [facility] Lymph % 11.6 % 11/12/2023 12:30 AM EDT [facility] Lymph Absolute 1.83 0.90 - 3.20 x10(3)/mc L 11/12/2023 12:30 AM EDT [facility] Monocyte % 5.7 % 11/12/2023 12:30 AM EDT [facility] Monocyte Absolute 0.90 0.30 - 0.90 x10(3)/mc L 11/12/2023 12:30 AM EDT [facility] Eos % 1.0 % 11/12/2023 12:30 AM EDT [facility] Eos Absolute 0.16 0.00 - 0.40 x10(3)/mc L 11/12/2023 12:30 AM EDT [facility] Basophil % 0.3 % 11/12/2023 12:30 AM EDT [facility] Baso Absolute 0.05 0.00 - 0.10 x10(3)/mc L 11/12/2023 12:30 AM EDT [facility] Immature Gran % 1.8 % 12:30 AM EDT [facility] Immature Gran Absolute 0.29(H) 0.00 - 0.04 x10(3)/mc L 11/12/2023 12:30 AM EDT [facility] Blood VENOUS BLOOD SPECIMEN / Unknown IP Care Team Draw / Unknown 11/12/2023 12:09 AM EDT 11/12/2023 12:16 AM EDT Timi Person MD HEMATOLOGY ORDERABL ES [facility] [place] [address] * Basic Metabolic Panel (11/12/2023 12:09 AM EDT) Glucose 84 65 - 199 mg/dL 11/12/2023 12:45 AM EDT [facility] Comment:Glucose Concentratio n >=200 mg/dL plus symptoms is consistent with Diabetes Mellitus. Blood Urea Nitrogen 19 10 - 20 mg/dL 11/12/2023 12:45 AM [facility] Creatinine 1.40 0.80 - 1.50 mg/dL 11/12/2023 12:45 AM [facility] Sodium 140 135 - 145 mMol/L 11/12/2023 12:45 AM [facility] Potassium 4.4 3.5 - 5.0 mMol/L 11/12/2023 12:45 AM [facility] Chloride 105 98 - 107 mMol/L 11/12/2023 12:45 AM [facility] Carbon Dioxide 24 22 - 31 mMol/L 11/12/2023 12:45 AM [facility] Anion Gap 11 5 - 15 mMol/L 11/12/2023 12:45 AM [facility] Calcium 8.8 8.5 - 10.5 mg/dL 11/12/2023 12:45 AM [facility] Est Glomerular Filtration Rate - Male 63 mL/min/1. 73 m?? 11/12/2023 12:45 AM [facility] Comment: This patient's estimated GFR was [...] EDT Timi Person MD CHEMISTRY ORDERABLE S [facility] [place] [address] * Phosphorus (11/12/2023 12:09 AM EDT) Phosphorus 3.0 2.5 - 4.5 mg/dL 11/12/2023 12:45 AM EDT [facility] Blood VENOUS BLOOD SPECIMEN / Unknown IP Care Team Draw / Unknown 11/12/2023 12:09 AM EDT 11/12/2023 12:16 AM EDT Timi Person MD CHEMISTRY ORDERABLE S [facility] [place] [address] * Magnesium (11/12/2023 12:09 AM EDT) Magnesium 0.84 0.69 - 1.07 mMol/L 11/12/2023 12:45 AM EDT [facility] Blood VENOUS BLOOD SPECIMEN / Unknown IP Care Team Draw / Unknown 11/12/2023 12:09 AM EDT 11/12/2023 12:16 AM EDT Timi Person MD CHEMISTRY ORDERABLE S [facility] [place] [address] * POC, GLUCOSE (11/12/2023 12:08 AM EDT) Glucometer, POC 85 65 - 199 mg/dL 11/12/2023 12:09 AM EDT [facility] Comment:Supplemental ranges: <140 mg/dL before meals <180 mg/dL all other times of the day. Blood CAPILLARY BLOOD / Unknown 11/12/2023 12:08 AM EDT 11/12/2023 12:09 AM EDT Timi Person MD POINT OF CARE TEST ORDERABLES [facility] [place] [address] * POC, GLUCOSE (11/11/2023 8:29 PM EDT) [facility] Signature Glucometer, POC 114 65 - 199 mg/dL 11/11/2023 8:29 PM EDT [facility] Comment:Supplemental ranges: <140 mg/dL before meals <180 mg/dL all other times of the day. Blood CAPILLARY BLOOD / Unknown 11/11/2023 8:29 PM EDT 11/11/2023 8:29 PM EDT Timi Person MD POINT OF CARE TEST ORDERABLES [facility] [place] [address] * (ABNORMAL) Blood Gas, Arterial POC (11/11/2023 5:59 PM EDT) [facility] pH, Arterial 7.49(H) 7.35 - 7.45 11/11/2023 6:00 PM EDT [facility] PCO2, Arterial 32(L) 35 - 45 mmHg 11/11/2023 6:00 PM EDT [facility] PO2, Arterial 78(L) 85 - 104 mmHg 11/11/2023 6:00 PM EDT [facility] Bicarbonate, Arterial 23.7 20.0 - 26.0 mmol/L 11/11/2023 6:00 PM EDT [facility] Base Excess, Arterial 0.3 -3.0 - 3.0 mmol/L 11/11/2023 6:00 PM EDT [facility] Hemoglobin, Arterial 9.6(L) 13.7 - 16.5 g/dL 11/11/2023 6:00 PM EDT [facility] Oxyhemoglobin, Arterial 94.7 94.0 - 97.0 % 11/11/2023 6:00 PM EDT [facility] Carboxyhemoglobin , Arterial 0.1 % 11/11/2023 6:00 PM EDT [facility] Comment: Nonsmokers: 0.5-1.5% COHB ?? Smokers: Variable ??but usually less than 10% ?? Toxic: 20-30% COHB ?? Lethal: Greater than 60% COHB Methemoglobin, Arterial 0.3 <=1.5 % 11/11/2023 6:00 PM EDT [facility] Sodium, Arterial 137 135 - 145 mmol/L 11/11/2023 6:00 PM EDT [facility] Potassium, Arterial 4.6 3.5 - 5.0 mmol/L 11/11/2023 6:00 PM EDT [facility] Chloride, Arterial 105 98 - 107 mmol/L 11/11/2023 6:00 PM EDT [facility] Lactate, Arterial 0.9 0.5 - 2.2 mmol/L 11/11/2023 6:00 PM EDT [facility] Flow Rate 3.0 L/min 11/11/2023 6:00 PM EDT [facility] IONIZED CALCIUM, ARTERIAL 1.23 1.15 - 1.33 mmol/L 11/11/2023 6:00 PM EDT [facility] Glucose, Arterial 140 65 - 199 mg/dL 11/11/2023 6:00 PM EDT [facility] Comment:Glucose Concentratio n >=200 mg/dL plus symptoms is consistent with Diabetes Mellitus. Blood ARTERIAL BLOOD / Unknown 11/11/2023 5:59 PM EDT 11/11/2023 6:00 PM EDT Timi Person MD POINT OF CARE TEST ORDERABLES [facility] [place] [address] * Heparin (unfractionated) Level (11/11/2023 5:57 PM EDT) UF Heparin 0.16 IU/mL 11/11/2023 6:18 PM EDT [facility] Comment: Heparin (anti-Xa) levels should be [...] APRN HEMATOLOGY ORDERAB LES Performing Organization Address City/[facility] [address]/[facility] Co de Phone Number [facility] [place] [address] * POC, GLUCOSE (11/11/2023 4:34 PM EDT) [facility] Glucometer, POC 140 65 - 199 mg/dL 11/11/2023 4:35 PM EDT [facility] Comment:Supplemental ranges: <140 mg/dL before meals <180 mg/dL all other times of the day. Blood CAPILLARY BLOOD / Unknown 11/11/2023 4:34 PM EDT 11/11/2023 4:35 PM EDT Timi Person MD POINT OF CARE TEST ORDERABLES Performing Organization Address [facility] [address]/[facility] Co de Phone Number [facility] [place] [address] * (ABNORMAL) Blood Gas, Arterial POC (11/11/2023 11:58 AM EDT) pH, Arterial 7.47(H) 7.35 - 7.45 11/11/2023 11:59 AM [facility] PCO2, Arterial 31(L) 35 - 45 mmHg 11/11/2023 11:59 AM [facility] PO2, Arterial 88 85 - 104 mmHg 11/11/2023 11:59 AM [facility] Bicarbonate, Arterial 22.0 20.0 - 26.0 mmol/L 11/11/2023 11:59 AM [facility] Base Excess, Arterial -1.6 -3.0 - 3.0 mmol/L 11/11/2023 11:59 AM [facility] Hemoglobin, Arterial 9.4(L) 13.7 - 16.5 g/dL 11/11/2023 11:59 AM [facility] Oxyhemoglobin, Arterial 96.0 94.0 - 97.0 % 11/11/2023 11:59 AM [facility] Carboxyhemoglobin , Arterial 0.3 % 11/11/2023 11:59 AM [facility] Comment: Nonsmokers: 0.5-1.5% COHB ?? Smokers: Variable ??but usually less than 10% ?? Toxic: 20-30% COHB ?? Lethal: Greater than 60% COHB Methemoglobin, Arterial 0.3 <=1.5 % 11/11/2023 11:59 AM [facility] Sodium, Arterial 137 135 - 145 mmol/L 11/11/2023 11:59 AM [facility] Potassium, Arterial 4.1 3.5 - 5.0 mmol/L 11/11/2023 11:59 AM [facility] Chloride, Arterial 107 98 - 107 mmol/L 11/11/2023 11:59 AM [facility] Lactate, Arterial 0.7 0.5 - 2.2 mmol/L 11/11/2023 11:59 AM [facility] Flow Rate 5.0 L/min 11/11/2023 11:59 AM [facility] IONIZED CALCIUM, ARTERIAL 1.15 1.15 - 1.33 mmol/L 11/11/2023 11:59 AM EDT [facility] Glucose, Arterial 139 65 - 199 mg/dL 11/11/2023 11:59 AM EDT [facility] Comment:Glucose Concentratio n >=200 mg/dL plus symptoms is consistent with Diabetes Mellitus. Blood ARTERIAL BLOOD / Unknown 11/11/2023 11:58 AM EDT 11/11/2023 11:59 AM EDT Timi Person MD POINT OF CARE TEST ORDERABLES [facility] [place] [address] * XR Abdomen 1 view (Generic) (11/11/2023 9:52 AM EDT) [employer] WORKSTATION ID [id number] RAD Anatomical Region Laterality Modality Abdomen N/A [...] who have questions please contact the health healthcare account manager that requested your imaging first. ? Narrative [...] patients who have questions please contactthe health healthcare account manager that requested your imaging first. Timi Person MD IMG DX ORDERABLES * POC, GLUCOSE (11/11/2023 8:42 AM EDT) [facility] Glucometer, POC 145 65 - 199 mg/dL 11/11/2023 8:43 AM EDT [facility] Comment:Supplemental ranges: <140 mg/dL before meals <180 mg/dL all other times of the day. Blood CAPILLARY BLOOD / Unknown 11/11/2023 8:42 AM EDT 11/11/2023 8:43 AM EDT Timi Person MD POINT OF CARE TEST ORDERABLES [facility] [place] [address] * (ABNORMAL) Lipase (11/11/2023 8:39 AM EDT) Lipase 82(H) 0 - 60 unit/L 11/11/2023 9:32 AM EDT [facility] Blood VENOUS BLOOD SPECIMEN / Unknown IP Care Team Draw / Unknown 11/11/2023 8:39 AM EDT 11/11/2023 8:46 AM EDT Timi Person MD CHEMISTRY ORDERABLE S [facility] [place] [address] * Amylase (11/11/2023 8:39 AM EDT) Amylase 63 28 - 100 unit/L 11/11/2023 9:32 AM EDT [facility] Blood VENOUS BLOOD SPECIMEN / Unknown IP Care Team Draw / Unknown 11/11/2023 8:39 AM EDT 11/11/2023 8:46 AM EDT Timi Person MD CHEMISTRY ORDERABLE S [facility] [place] [address] * (ABNORMAL) Hepatic Function Panel (11/11/2023 8:39 AM EDT) Albumin 2.7(L) 3.2 - 5.2 g/dL 11/11/2023 9:32 AM EDT [facility] Aspartate Aminotransferase 47(H) <=39 unit/L 11/11/2023 9:32 AM EDT [facility] Alanine Aminotransferase 39 0 - 55 unit/L 11/11/2023 9:32 AM EDT [facility] Alkaline Phosphatase 142(H) 40 - 130 unit/L 11/11/2023 9:32 AM EDT [facility] Bilirubin, Total 0.3 <=1.3 mg/dL 11/11/2023 9:32 AM EDT [facility] Bilirubin, Direct <0.2 0.0 - 0.3 mg/dL 11/11/2023 9:32 AM EDT [facility] Protein, Total 6.5 6.1 - 8.0 g/dL 11/11/2023 9:32 AM EDT [facility] Blood VENOUS BLOOD SPECIMEN / Unknown IP Care Team Draw / Unknown 11/11/2023 8:39 AM EDT 11/11/2023 8:46 AM EDT Timi Person MD CHEMISTRY ORDERABLE S [facility] [place] [address] * (ABNORMAL) Blood Gas, Arterial POC (11/11/2023 6:36 AM EDT) pH, Arterial 7.49(H) 7.35 - 7.45 11/11/2023 6:37 AM EDT [facility] PCO2, Arterial 31(L) 35 - 45 mmHg 11/11/2023 6:37 AM EDT [facility] PO2, Arterial 105(H) 85 - 104 mmHg 11/11/2023 6:37 AM EDT [facility] Bicarbonate, Arterial 23.1 20.0 - 26.0 mmol/L 11/11/2023 6:37 AM EDT [facility] Base Excess, Arterial -0.2 -3.0 - 3.0 mmol/L 11/11/2023 6:37 AM EDT [facility] Hemoglobin, Arterial 9.2(L) 13.7 - 16.5 g/dL 11/11/2023 6:37 AM EDT [facility] Oxyhemoglobin, Arterial 97.4(H) 94.0 - 97.0 % 11/11/2023 6:37 AM EDT [facility] Carboxyhemoglobin , Arterial 0.1 % 11/11/2023 6:37 AM EDT [facility] Comment: Nonsmokers: 0.5-1.5% COHB ?? Smokers: Variable ??but usually less than 10% ?? Toxic: 20-30% COHB ?? Lethal: Greater than 60% COHB Methemoglobin, Arterial 0.3 <=1.5 % 11/11/2023 6:37 AM EDT [facility] Sodium, Arterial 136 135 - 145 mmol/L 11/11/2023 6:37 AM EDT [facility] Potassium, Arterial 4.1 3.5 - 5.0 mmol/L 11/11/2023 6:37 AM EDT [facility] Chloride, Arterial 106 98 - 107 mmol/L 11/11/2023 6:37 AM EDT [facility] Lactate, Arterial 0.8 0.5 - 2.2 mmol/L 11/11/2023 6:37 AM [facility] Fraction of Inspired Oxygen 40 % 11/11/2023 6:37 AM [facility] PF Ratio 263 Ratio 11/11/2023 6:37 AM [facility] Comment:PF ratio calculated using the non-temperature corrected pO2 result. IONIZED CALCIUM, ARTERIAL 1.16 1.15 - 1.33 mmol/L 11/11/2023 6:37 AM EDT [facility] Glucose, Arterial 154 65 - 199 mg/dL 11/11/2023 6:37 AM EDT [facility] Comment:Glucose Concentratio n >=200 mg/dL plus symptoms is consistent with Diabetes Mellitus. Blood ARTERIAL BLOOD / Unknown 11/11/2023 6:36 AM EDT 11/11/2023 6:37 AM EDT Timi Person MD POINT OF CARE TEST ORDERABLES [facility] [place] [address] * Heparin (unfractionated) Level (11/11/2023 6:33 AM EDT) UF Heparin 0.33 IU/mL 11/11/2023 6:53 AM EDT [facility] Comment: Heparin (anti-Xa) levels should be [...] EDT Aby Williamson APRN HEMATOLOGY ORDERAB LES [facility] [place] [address] * POC, GLUCOSE (11/11/2023 4:06 AM EDT) Glucometer, POC 146 65 - 199 mg/dL 11/11/2023 4:06 AM EDT [facility] Comment:Supplemental ranges: <140 mg/dL before meals <180 mg/dL all other times of the day. Blood CAPILLARY BLOOD / Unknown 11/11/2023 4:06 AM EDT 11/11/2023 4:06 AM EDT Timi Person MD POINT OF CARE TEST ORDERABLES [facility] [place] [address] * (ABNORMAL) Blood Gas, Arterial POC (11/11/2023 12:14 AM EDT) pH, Arterial 7.46(H) 7.35 - 7.45 11/11/2023 12:15 AM [facility] PCO2, Arterial 31(L) 35 - 45 mmHg 11/11/2023 12:15 AM [facility] PO2, Arterial 130(H) 85 - 104 mmHg 11/11/2023 12:15 AM [facility] Bicarbonate, Arterial 21.7 20.0 - 26.0 mmol/L 11/11/2023 12:15 AM [facility] Base Excess, Arterial -2.1 -3.0 - 3.0 mmol/L 11/11/2023 12:15 AM [facility] Hemoglobin, Arterial 9.5(L) 13.7 - 16.5 g/dL 11/11/2023 12:15 AM [facility] Oxyhemoglobin, Arterial 97.8(H) 94.0 - 97.0 % 11/11/2023 12:15 AM [facility] Carboxyhemoglobin , Arterial 0.3 % 11/11/2023 12:15 AM [facility] Comment: Nonsmokers: 0.5-1.5% COHB ?? Smokers: Variable ??but usually less than 10% ?? Toxic: 20-30% COHB ?? Lethal: Greater than 60% COHB Methemoglobin, Arterial 0.3 <=1.5 % 11/11/2023 12:15 AM [facility] Sodium, Arterial 137 135 - 145 mmol/L 11/11/2023 12:15 AM [facility] Potassium, Arterial 3.8 3.5 - 5.0 mmol/L 11/11/2023 12:15 AM [facility] Chloride, Arterial 108(H) 98 - 107 mmol/L 11/11/2023 12:15 AM EDT [facility] Lactate, Arterial 0.7 0.5 - 2.2 mmol/L 11/11/2023 12:15 AM EDT [facility] Fraction of Inspired Oxygen 50 % 11/11/2023 12:15 AM EDT [facility] PF Ratio 260 Ratio 11/11/2023 12:15 AM EDT [facility] Comment:PF ratio calculated using the non-temperature corrected pO2 result. IONIZED CALCIUM, ARTERIAL 1.12(L) 1.15 - 1.33 mmol/L 11/11/2023 12:15 AM EDT [facility] Glucose, Arterial 137 65 - 199 mg/dL 11/11/2023 12:15 AM EDT [facility] Comment:Glucose Concentratio n >=200 mg/dL plus symptoms is consistent with Diabetes Mellitus. Blood ARTERIAL BLOOD / Unknown 11/11/2023 12:14 AM EDT 11/11/2023 12:15 AM EDT Timi Person MD POINT OF CARE TEST ORDERABLES [facility] [place] [address] * Heparin (unfractionated) Level (11/11/2023 12:12 AM EDT) UF Heparin 0.46 IU/mL 11/11/2023 12:28 AM EDT [facility] Comment: Heparin (anti-Xa) levels should be [...] EDT 11/11/2023 12:16 AM EDT Aby Williamson IMAGING SCHEDULER HEMATOLOGY ORDERAB LES [facility] [place] [address] * (ABNORMAL) CBC (with Diff) (11/11/2023 12:12 AM EDT) White Blood Cell 21.85(H) 4.00 - 9.50 x10(3)/mc L 11/11/2023 12:21 AM EDT [facility] Red Blood Cell 4.03(L) 4.58 - 5.54 x10(6)/mc L 11/11/2023 12:21 AM EDT [facility] Hemoglobin 8.8(L) 13.7 - 16.5 g/dL 11/11/2023 12:21 AM T [facility] Hematocrit 28.4(L) 40.5 - 48.5 % 11/11/2023 12:21 AM T [facility] Mean Cell Volume 70.5(L) 82.9 - 93.1 fL 11/11/2023 12:21 AM EDT [facility] Mean Cell Hemoglobin 21.8(L) 27.5 - 32.1 pg 11/11/2023 12:21 AM EDT [facility] Mean Cell Hemoglobin Concentration 31.0(L) 32.0 - 35.7 g/dL 11/11/2023 12:21 AM EDT [facility] Platelet 307 145 - 357 x10(3)/mc L 11/11/2023 12:21 AM EDT [facility] Mean Platelet Volume 10.6 7.6 - 12.9 fL 11/11/2023 12:21 AM [facility] RDW Standard Deviation 54.3(H) 36.0 - 45.0 fL 11/11/2023 12:21 AM [facility] RDW coefficient of variation 21.9(H) 11.4 - 13.8 % 11/11/2023 12:21 AM [facility] NRBC% auto 0.1 % 11/11/2023 12:21 AM [facility] NRBC Absolute 0.03(H) <0.01 x10(3)/mc L 11/11/2023 12:21 AM [facility] Neutrophil % 85.3 % 11/11/2023 12:21 AM [facility] Neutrophil Absolute (ANC) - Automated 18.63(H) 1.70 - 6.10 x10(3)/mc L 11/11/2023 12:21 AM [facility] Lymph % 7.9 % 11/11/2023 12:21 AM [facility] Lymph Absolute 1.73 0.90 - 3.20 x10(3)/mc L 11/11/2023 12:21 AM [facility] Monocyte % 3.4 % 11/11/2023 12:21 AM [facility] Monocyte Absolute 0.74 0.30 - 0.90 x10(3)/mc L 11/11/2023 12:21 AM [facility] Eos % 0.9 % 11/11/2023 12:21 AM [facility] Eos Absolute 0.20 0.00 - 0.40 x10(3)/mc L 11/11/2023 12:21 AM [facility] Basophil % 0.3 % 11/11/2023 12:21 AM [facility] Baso Absolute 0.06 0.00 - 0.10 x10(3)/mc L 11/11/2023 12:21 AM [facility] Immature Gran % 2.2 % 12:21 AM EDT [facility] Immature Gran Absolute 0.49(H) 0.00 - 0.04 x10(3)/mc L 11/11/2023 12:21 AM EDT [facility] Blood VENOUS BLOOD SPECIMEN / Unknown IP Care Team Draw / Unknown 11/11/2023 12:12 AM EDT 11/11/2023 12:16 AM EDT Timi Person MD HEMATOLOGY ORDERABL ES [facility] [place] [address] * (ABNORMAL) Basic Metabolic Panel (11/11/2023 12:12 AM EDT) Glucose 158 65 - 199 mg/dL 11/11/2023 12:48 AM EDT [facility] Comment:Glucose Concentratio n >=200 mg/dL plus symptoms is consistent with Diabetes Mellitus. Blood Urea Nitrogen 27(H) 10 - 20 mg/dL 11/11/2023 12:48 AM EDT [facility] Creatinine 1.66(H) 0.80 - 1.50 mg/dL 11/11/2023 12:48 AM EDT [facility] Sodium 137 135 - 145 mMol/L 11/11/2023 12:48 AM EDT [facility] Potassium 4.5 3.5 - 5.0 mMol/L 11/11/2023 12:48 AM EDT [facility] Chloride 104 98 - 107 mMol/L 11/11/2023 12:48 AM EDT [facility] Carbon Dioxide 22 22 - 31 mMol/L 11/11/2023 12:[facility] Anion Gap 11 5 - 15 mMol/L 11/11/2023 12:48 AM T [facility] Calcium 8.8 8.5 - 10.5 mg/dL 11/11/2023 12:48 AM EDT [facility] Est Glomerular Filtration Rate - Male 51 mL/min/1. 73 m?? 11/11/2023 12:48 AM EDT [facility] Comment: This patient's estimated [...] EDT Timi Person MD CHEMISTRY ORDERABLE S [facility] [place] [address] * Phosphorus (11/11/2023 12:12 AM EDT) Phosphorus 3.0 2.5 - 4.5 mg/dL 11/11/2023 12:48 AM EDT [facility] Blood VENOUS BLOOD SPECIMEN / Unknown IP Care Team Draw / Unknown 11/11/2023 12:12 AM EDT 11/11/2023 12:16 AM EDT Timi Person MD CHEMISTRY ORDERABLE S [facility] [place] [address] * Magnesium (11/11/2023 12:12 AM EDT) Magnesium 0.78 0.69 - 1.07 mMol/L 11/11/2023 12:48 AM EDT [facility] Blood VENOUS BLOOD SPECIMEN / Unknown IP Care Team Draw / Unknown 11/11/2023 12:12 AM EDT 11/11/2023 12:16 AM EDT Timi Person MD CHEMISTRY ORDERABLE S Performing Organization Address City/[facility] [address]/ZIP Co de Phone Number [facility] [place] [address] * POC, GLUCOSE (11/11/2023 12:11 AM EDT) Glucometer, POC 151 65 - 199 mg/dL 11/11/2023 12:11 AM EDT [facility] Comment:Supplemental ranges: <140 mg/dL before meals <180 mg/dL all other times of the day. Blood CAPILLARY BLOOD / Unknown 11/11/2023 12:11 AM EDT 11/11/2023 12:11 AM EDT Timi Person MD POINT OF CARE TEST ORDERABLES Performing Organization Address [facility] [address]/ZIP Co de Phone Number [facility] [place] [address] * POC, GLUCOSE (11/10/2023 8:10 PM EDT) Glucometer, POC 162 65 - 199 mg/dL 11/10/2023 8:10 PM EDT [facility] Comment:Supplemental ranges: <140 mg/dL before meals <180 mg/dL all other times of the day. Blood CAPILLARY BLOOD / Unknown 11/10/2023 8:10 PM EDT 11/10/2023 8:10 PM EDT Timi Person MD POINT OF CARE TEST ORDERABLES Performing Organization Address City/[facility] [address]/ZIP Co de Phone Number [facility] [place] [address] * (ABNORMAL) Blood Gas, Arterial POC (11/10/2023 6:15 PM EDT) pH, Arterial 7.47(H) 7.35 - 7.45 11/10/2023 6:16 PM [facility] PCO2, Arterial 34(L) 35 - 45 mmHg 11/10/2023 6:16 PM [facility] PO2, Arterial 87 85 - 104 mmHg 11/10/2023 6:16 PM [facility] Bicarbonate, Arterial 24.0 20.0 - 26.0 mmol/L 11/10/2023 6:16 PM [facility] Base Excess, Arterial 0.3 -3.0 - 3.0 mmol/L 11/10/2023 6:16 PM [facility] Hemoglobin, Arterial 10.2(L) 13.7 - 16.5 g/dL 11/10/2023 6:16 PM [facility] Oxyhemoglobin, Arterial 96.2 94.0 - 97.0 % 11/10/2023 6:16 PM [facility] Carboxyhemoglobin , Arterial 0.0 % 11/10/2023 6:16 PM [facility] Comment: Nonsmokers: 0.5-1.5% COHB ?? Smokers: Variable ??but usually less than 10% ?? Toxic: 20-30% COHB ?? Lethal: Greater than 60% COHB Methemoglobin, Arterial 0.3 <=1.5 % 11/10/2023 6:16 PM [facility] Sodium, Arterial 137 135 - 145 mmol/L 11/10/2023 6:16 PM [facility] Potassium, Arterial 4.6 3.5 - 5.0 mmol/L 11/10/2023 6:16 PM [facility] Chloride, Arterial 105 98 - 107 mmol/L 11/10/2023 6:16 PM [facility] Lactate, Arterial 0.9 0.5 - 2.2 mmol/L 11/10/2023 6:16 PM [facility] Flow Rate 6.0 L/min 11/10/2023 6:16 PM EDT [facility] IONIZED CALCIUM, ARTERIAL 1.19 1.15 - 1.33 mmol/L 11/10/2023 6:16 PM EDT [facility] Glucose, Arterial 166 65 - 199 mg/dL 11/10/2023 6:16 PM EDT [facility] Comment:Glucose Concentratio n >=200 mg/dL plus symptoms is consistent with Diabetes Mellitus. Blood ARTERIAL BLOOD / Unknown 11/10/2023 6:15 PM EDT 11/10/2023 6:16 PM EDT Timi Person MD POINT OF CARE TEST ORDERABLES Performing Organization Address [facility] [address]/ZIP Co de Phone Number [facility] [place] [address] * Heparin (unfractionated) Level (11/10/2023 6:13 PM EDT) UF Heparin 0.42 IU/mL 11/10/2023 6:38 PM EDT [facility] Comment: Heparin (anti-Xa) levels should be [...] EDT Aby Williamson APRN HEMATOLOGY ORDERAB LES [facility] [place] [address] * POC, GLUCOSE (11/10/2023 4:50 PM EDT) Glucometer, POC 162 65 - 199 mg/dL 11/10/2023 4:50 PM EDT [facility] Comment:Supplemental ranges: <140 mg/dL before meals <180 mg/dL all other times of the day. Blood CAPILLARY BLOOD / Unknown 11/10/2023 4:50 PM EDT 11/10/2023 4:51 PM EDT Timi Person MD POINT OF CARE TEST ORDERABLES [facility] [place] [address] * C diff Screen (11/10/2023 2:17 PM EDT) C Diff Interp Negative Negative 11/10/2023 11:23 PM EDT [facility] C Diff PCR Negative Negative 11/10/2023 11:23 PM EDT [facility] Stool STOOL SPECIMEN / Unknown Non Blood Collection / Unknown 11/10/2023 2:17 PM EDT 11/10/2023 2:51 PM EDT Aby Williamson APRN MICROBIOLOGY - GEN ERAL ORDERABLES [facility] [place] [address] * C Diff PCR (11/10/2023 2:17 PM EDT) Stool STOOL SPECIMEN / Unknown Non Blood Collection / Unknown 11/10/2023 2:17 PM EDT 11/10/2023 2:51 PM EDT Aby Williamson APRN MICROBIOLOGY - GEN ERAL ORDERABLES [facility] [place] [address] * (ABNORMAL) Blood Gas, Arterial POC (11/10/2023 12:43 PM EDT) pH, Arterial 7.45 7.35 - 7.45 11/10/2023 12:44 PM [facility] PCO2, Arterial 30(L) 35 - 45 mmHg 11/10/2023 12:44 PM [facility] PO2, Arterial 75(L) 85 - 104 mmHg 11/10/2023 12:44 PM [facility] Bicarbonate, Arterial 19.9(L) 20.0 - 26.0 mmol/L 11/10/2023 12:44 PM [facility] Base Excess, Arterial -4.1(L) -3.0 - 3.0 mmol/L 11/10/2023 12:44 PM [facility] Hemoglobin, Arterial 10.3(L) 13.7 - 16.5 g/dL 11/10/2023 12:44 PM [facility] Oxyhemoglobin, Arterial 94.6 94.0 - 97.0 % 11/10/2023 12:44 PM [facility] Carboxyhemoglobin , Arterial 0.3 % 11/10/2023 12:44 PM [facility] Comment: Nonsmokers: 0.5-1.5% COHB ?? Smokers: Variable ??but usually less than 10% ?? Toxic: 20-30% COHB ?? Lethal: Greater than 60% COHB Methemoglobin, Arterial 0.3 <=1.5 % 11/10/2023 12:44 PM [facility] Sodium, Arterial 138 135 - 145 mmol/L 11/10/2023 12:44 PM [facility] Potassium, Arterial 4.1 3.5 - 5.0 mmol/L 11/10/2023 12:44 PM [facility] Chloride, Arterial 107 98 - 107 mmol/L 11/10/2023 12:44 PM [facility] Lactate, Arterial 1.0 0.5 - 2.2 mmol/L 11/10/2023 12:44 PM EDT [facility] Flow Rate 6.0 L/min 11/10/2023 12:44 PM EDT [facility] IONIZED CALCIUM, ARTERIAL 1.16 1.15 - 1.33 mmol/L 11/10/2023 12:44 PM EDT [facility] Glucose, Arterial 160 65 - 199 mg/dL 11/10/2023 12:44 PM EDT [facility] Comment:Glucose Concentratio n >=200 mg/dL plus symptoms is consistent with Diabetes Mellitus. Blood ARTERIAL BLOOD / Unknown 11/10/2023 12:43 PM EDT 11/10/2023 12:44 PM EDT Timi Person MD POINT OF CARE TEST ORDERABLES Performing Organization Address City/[facility] [address]/ZIP Co de Phone Number [facility] [place] [address] * EKG 12 Lead (11/10/2023 12:25 PM EDT) Ventricular rate 135 BPM MUSE SYSTEM Atrial Rate 135 BPM MUSE SYSTEM P-R Interval 138 ms MUSE SYSTEM QRS Duration 106 ms MUSE SYSTEM Q-T Interval 288 ms MUSE SYSTEM QTC Calculated (Bezet) 432 ms MUSE SYSTEM Calculated P [place] 45 degrees MUSE SYSTEM Calculated R [place] 91 degrees MUSE SYSTEM Calculated T [place] -21 degrees MUSE SYSTEM INTERPRETATION Probable Sinus [...] PM EDT Aby Williamson APRN ECG ORDERABLES Performing Organization Address City/[facility] [address]/ZIP Co de Phone Number MUSE SYSTEM * Scan, Peripheral Blood (11/10/2023 10:55 AM EDT) Pathologist [facility] RBC Morphology Abnormal 11/10/2023 12:32 PM EDT [facility] Platelet Estimate Normal Normal 024 12:32 PM EDT [facility] Microcyte 1-5 /HPF 11/10/2023 12:32 PM EDT [facility] Hypochromasia Slight 11/10/2023 12:32 PM EDT [facility] Polychromasia Present 11/10/2023 12:32 PM EDT [facility] Ovalocytes 1-5 /HPF 11/10/2023 12:32 PM EDT [facility] Blood VENOUS BLOOD SPECIMEN / Unknown IP Care Team Draw / Unknown 11/10/2023 10:55 AM EDT 11/10/2023 10:59 AM EDT [facility] LES Performing Organization Address City/State/[facility] Co de Phone Number [facility] [place] [address] * (ABNORMAL) CBC (with Diff) (11/10/2023 10:55 AM EDT) Pathologist [facility] White Blood Cell 22.58(H) 4.00 - 9.50 x10(3)/mc L 11/10/2023 12:32 PM EDT [facility] Red Blood Cell 4.57(L) 4.58 - 5.54 x10(6)/mc L 11/10/2023 12:32 PM EDT [facility] Hemoglobin 9.9(L) 13.7 - 16.5 g/dL 11/10/2023 12:32 PM EDT [facility] Hematocrit 32.2(L) 40.5 - 48.5 % 11/10/2023 12:32 PM EDT [facility] Mean Cell Volume 70.5(L) 82.9 - 93.1 fL 11/10/2023 12:32 PM EDT [facility] Mean Cell Hemoglobin 21.7(L) 27.5 - 32.1 pg 11/10/2023 12:32 PM [facility] Mean Cell Hemoglobin Concentration 30.7(L) 32.0 - 35.7 g/dL 11/10/2023 12:32 PM [facility] Platelet 315 145 - 357 x10(3)/mc L 11/10/2023 12:32 PM [facility] Mean Platelet Volume 10.4 7.6 - 12.9 fL 11/10/2023 12:32 PM [facility] RDW Standard Deviation 54.3(H) 36.0 - 45.0 fL 11/10/2023 12:32 PM [facility] RDW coefficient of variation 22.2(H) 11.4 - 13.8 % 11/10/2023 12:32 PM [facility] NRBC% auto 0.1 % 11/10/2023 12:32 PM [facility] NRBC Absolute 0.03(H) <0.01 x10(3)/mc L 11/10/2023 12:32 PM [facility] Neutrophil % 88.2 % 11/10/2023 12:32 PM [facility] Neutrophil Absolute (ANC) - Automated 19.92(H) 1.70 - 6.10 x10(3)/mc L 11/10/2023 12:32 PM [facility] Lymph % 4.8 % 11/10/2023 12:32 PM [facility] Lymph Absolute 1.08 0.90 - 3.20 x10(3)/mc L 11/10/2023 12:32 PM [facility] Monocyte % 2.8 % 11/10/2023 12:32 PM [facility] Monocyte Absolute 0.63 0.30 - 0.90 x10(3)/mc L 11/10/2023 12:32 PM [facility] Eos % 1.1 % 11/10/2023 12:32 PM EDT [facility] Eos Absolute 0.25 0.00 - 0.40 x10(3)/mc L 11/10/2023 12:32 PM EDT [facility] Basophil % 0.3 % 11/10/2023 12:32 PM EDT [facility] Baso Absolute 0.07 0.00 - 0.10 x10(3)/mc L 11/10/2023 12:32 PM EDT [facility] Immature Gran % 2.8 % 12:32 PM EDT [facility] Immature Gran Absolute 0.63(H) 0.00 - 0.04 x10(3)/mc L 11/10/2023 12:32 PM EDT [facility] Blood VENOUS BLOOD SPECIMEN / Unknown IP Care Team Draw / Unknown 11/10/2023 10:55 AM EDT 11/10/2023 10:59 AM EDT Aby Williamson IMAGING SCHEDULER HEMATOLOGY ORDERAB LES [facility] [place] [address] * (ABNORMAL) Blood Gas, Arterial POC (11/10/2023 10:48 AM EDT) pH, Arterial 7.48(H) 7.35 - 7.45 11/10/2023 10:49 AM EDT [facility] PCO2, Arterial 33(L) 35 - 45 mmHg 11/10/2023 10:49 AM EDT [facility] PO2, Arterial 86 85 - 104 mmHg 11/10/2023 10:49 AM EDT [facility] Bicarbonate, Arterial 23.5 20.0 - 26.0 mmol/L 11/10/2023 10:49 AM EDT [facility] Base Excess, Arterial -0.1 -3.0 - 3.0 mmol/L 11/10/2023 10:49 AM [facility] Hemoglobin, Arterial 10.8(L) 13.7 - 16.5 g/dL 11/10/2023 10:49 AM [facility] Oxyhemoglobin, Arterial 96.5 94.0 - 97.0 % 11/10/2023 10:49 AM [facility] Carboxyhemoglobin , Arterial 0.0 % 11/10/2023 10:49 AM [facility] Comment: Nonsmokers: 0.5-1.5% COHB ?? Smokers: Variable ??but usually less than 10% ?? Toxic: 20-30% COHB ?? Lethal: Greater than 60% COHB Methemoglobin, Arterial 0.3 <=1.5 % 11/10/2023 10:49 AM [facility] Sodium, Arterial 136 135 - 145 mmol/L 11/10/2023 10:49 AM [facility] Potassium, Arterial 4.5 3.5 - 5.0 mmol/L 11/10/2023 10:49 AM [facility] Chloride, Arterial 104 98 - 107 mmol/L 11/10/2023 10:49 AM [facility] Lactate, Arterial 1.1 0.5 - 2.2 mmol/L 11/10/2023 10:49 AM [facility] Fraction of Inspired Oxygen 40 % 11/10/2023 10:49 AM [facility] PF Ratio 215 Ratio 11/10/2023 10:49 AM [facility] Comment:PF ratio calculated using the non-temperature corrected pO2 result. IONIZED CALCIUM, ARTERIAL 1.21 1.15 - 1.33 mmol/L 11/10/2023 10:49 AM [facility] Glucose, Arterial 184 65 - 199 mg/dL 11/10/2023 10:49 AM [facility] Comment:Glucose Concentratio n >=200 mg/dL plus symptoms is consistent with Diabetes Mellitus. Blood ARTERIAL BLOOD / Unknown 11/10/2023 10:48 AM EDT 11/10/2023 10:49 AM EDT Timi Person MD POINT OF CARE TEST ORDERABLES [facility] [place] [address] * (ABNORMAL) Blood Gas, Arterial POC (11/10/2023 8:14 AM EDT) pH, Arterial 7.45 7.35 - 7.45 11/10/2023 8:16 AM EDT [facility] PCO2, Arterial 33(L) 35 - 45 mmHg 11/10/2023 8:16 AM EDT [facility] PO2, Arterial 81(L) 85 - 104 mmHg 11/10/2023 8:16 AM EDT [facility] Bicarbonate, Arterial 22.6 20.0 - 26.0 mmol/L 11/10/2023 8:16 AM EDT [facility] Base Excess, Arterial -1.4 -3.0 - 3.0 mmol/L 11/10/2023 8:[facility] Hemoglobin, Arterial 10.2(L) 13.7 - 16.5 g/dL 11/10/2023 8:16 AM [facility] Oxyhemoglobin, Arterial 95.0 94.0 - 97.0 % 11/10/2023 8:16 AM EDT [facility] Carboxyhemoglobin , Arterial 0.1 % 11/10/2023 8:16 AM [facility] Comment: Nonsmokers: 0.5-1.5% COHB ?? Smokers: Variable ??but usually less than 10% ?? Toxic: 20-30% COHB ?? Lethal: Greater than 60% COHB Methemoglobin, Arterial 0.3 <=1.5 % 11/10/2023 8:16 AM EDT [facility] Sodium, Arterial 136 135 - 145 mmol/L 11/10/2023 8:16 AM EDT [facility] Potassium, Arterial 4.3 3.5 - 5.0 mmol/L 11/10/2023 8:16 AM EDT [facility] Chloride, Arterial 106 98 - 107 mmol/L 11/10/2023 8:16 AM EDT [facility] Lactate, Arterial 0.8 0.5 - 2.2 mmol/L 11/10/2023 8:16 AM EDT [facility] IONIZED CALCIUM, ARTERIAL 1.16 1.15 - 1.33 mmol/L 11/10/2023 8:16 AM EDT [facility] Glucose, Arterial 206(H) 65 - 199 mg/dL 11/10/2023 8:16 AM EDT [facility] Comment:Glucose Concentratio n >=200 mg/dL plus symptoms is consistent with Diabetes Mellitus. Blood ARTERIAL BLOOD / Unknown 11/10/2023 8:14 AM EDT 11/10/2023 8:15 AM EDT Timi Person MD POINT OF CARE TEST ORDERABLES [facility] [place] [address] * (ABNORMAL) Blood Gas, Arterial POC (11/10/2023 5:53 AM EDT) pH, Arterial 7.40 7.35 - 7.45 11/10/2023 5:55 AM EDT [facility] PCO2, Arterial 41 35 - 45 mmHg 11/10/2023 5:55 AM EDT [facility] PO2, Arterial 91 85 - 104 mmHg 11/10/2023 5:55 AM EDT [facility] Bicarbonate, Arterial 24.4 20.0 - 26.0 mmol/L 11/10/2023 5:55 AM EDT [facility] Base Excess, Arterial -0.5 -3.0 - 3.0 mmol/L 11/10/2023 5:55 AM EDT [facility] Hemoglobin, Arterial 9.7(L) 13.7 - 16.5 g/dL 11/10/2023 5:55 AM EDT [facility] Oxyhemoglobin, Arterial 96.1 94.0 - 97.0 % 11/10/2023 5:55 AM EDT [facility] Carboxyhemoglobin, Arterial 0.0 % 11/10/2023 5:55 AM EDT [facility] Comment: Nonsmokers: 0.5-1.5% COHB ?? Smokers: Variable ??but usually less than 10% ?? Toxic: 20-30% COHB ?? Lethal: Greater than 60% COHB Methemoglobin, Arterial 0.3 <=1.5 % 11/10/2023 5:55 AM EDT [facility] Sodium, Arterial 136 135 - 145 mmol/L 11/10/2023 5:55 AM EDT [facility] Potassium, Arterial 4.4 3.5 - 5.0 mmol/L 11/10/2023 5:55 AM EDT [facility] Chloride, Arterial 105 98 - 107 mmol/L 11/10/2023 5:55 AM EDT [facility] Lactate, Arterial 0.7 0.5 - 2.2 mmol/L 11/10/2023 5:55 AM EDT [facility] IONIZED CALCIUM, ARTERIAL 1.20 1.15 - 1.33 mmol/L 11/10/2023 5:55 AM EDT [facility] Glucose, Arterial 154 65 - 199 mg/dL 11/10/2023 5:55 AM EDT [facility] Comment:Glucose Concentratio n >=200 mg/dL plus symptoms is consistent with Diabetes Mellitus. Blood ARTERIAL BLOOD / Unknown 11/10/2023 5:53 AM EDT 11/10/2023 5:55 AM EDT Timi Person MD POINT OF CARE TEST ORDERABLES [facility] [place] [address] * POC, GLUCOSE (11/10/2023 4:11 AM EDT) Glucometer, POC 176 65 - 199 mg/dL 11/10/2023 4:12 AM EDT [facility] Comment:Supplemental ranges: <140 mg/dL before meals <180 mg/dL all other times of the day. Blood CAPILLARY BLOOD / Unknown 11/10/2023 4:11 AM EDT 11/10/2023 4:12 AM EDT Timi Person MD POINT OF CARE TEST ORDERABLES [facility] [place] [address] * (ABNORMAL) Blood Gas, Arterial POC (11/10/2023 12:45 AM EDT) [facility] pH, Arterial 7.46(H) 7.35 - 7.45 11/10/2023 12:46 [facility] PCO2, Arterial 37 35 - 45 mmHg 11/10/2023 12:46 AM [facility] PO2, Arterial 70(L) 85 - 104 mmHg 11/10/2023 12:46 AM [facility] Bicarbonate, Arterial 25.6 20.0 - 26.0 mmol/L 11/10/2023 12:46 AM [facility] Base Excess, Arterial 1.8 -3.0 - 3.0 mmol/L 11/10/2023 12:46 AM [facility] Hemoglobin, Arterial 10.3(L) 13.7 - 16.5 g/dL 11/10/2023 12:46 AM [facility] Oxyhemoglobin, Arterial 93.4(L) 94.0 - 97.0 % 11/10/2023 12:46 AM [facility] Carboxyhemoglobin , Arterial 0.3 % 11/10/2023 12:46 AM [facility] Comment: Nonsmokers: 0.5-1.5% COHB ?? Smokers: Variable ??but usually less than 10% ?? Toxic: 20-30% COHB ?? Lethal: Greater than 60% COHB Methemoglobin, Arterial 0.3 <=1.5 % 11/10/2023 12:46 AM EDT [facility] Sodium, Arterial 136 135 - 145 mmol/L 11/10/2023 12:46 AM EDT [facility] Potassium, Arterial 4.7 3.5 - 5.0 mmol/L 11/10/2023 12:46 AM EDT [facility] Chloride, Arterial 103 98 - 107 mmol/L 11/10/2023 12:46 AM EDT [facility] Lactate, Arterial 0.8 0.5 - 2.2 mmol/L 11/10/2023 12:46 AM EDT [facility] IONIZED CALCIUM, ARTERIAL 1.21 1.15 - 1.33 mmol/L 11/10/2023 12:46 AM EDT [facility] Glucose, Arterial 190 65 - 199 mg/dL 11/10/2023 12:46 AM EDT [facility] Comment:Glucose Concentratio n >=200 mg/dL plus symptoms is consistent with Diabetes Mellitus. Blood ARTERIAL BLOOD / Unknown 11/10/2023 12:45 AM EDT 11/10/2023 12:46 AM EDT Timi Person MD POINT OF CARE TEST ORDERABLES Performing Organization Address City/State/[facility] Co de Phone Number [facility] [place] [address] * (ABNORMAL) CBC (with Diff) (11/10/2023 12:43 AM EDT) White Blood Cell 19.87(H) 4.00 - 9.50 x10(3)/mc L 11/10/2023 1:06 AM EDT [facility] Red Blood Cell 4.33(L) 4.58 - 5.54 x10(6)/mc L 11/10/2023 1:06 AM EDT [facility] Hemoglobin 9.4(L) 13.7 - 16.5 g/dL 11/10/2023 1:06 AM [facility] Hematocrit 30.3(L) 40.5 - 48.5 % 11/10/2023 1:06 AM [facility] Mean Cell Volume 70.0(L) 82.9 - 93.1 fL 11/10/2023 1:06 AM [facility] Mean Cell Hemoglobin 21.7(L) 27.5 - 32.1 pg 11/10/2023 1:06 AM [facility] Mean Cell Hemoglobin Concentration 31.0(L) 32.0 - 35.7 g/dL 11/10/2023 1:06 AM [facility] Platelet 269 145 - 357 x10(3)/mc L 11/10/2023 1:06 AM [facility] Mean Platelet Volume 10.5 7.6 - 12.9 fL 11/10/2023 1:06 AM [facility] RDW Standard Deviation 53.0(H) 36.0 - 45.0 fL 11/10/2023 1:06 AM [facility] RDW coefficient of variation 21.9(H) 11.4 - 13.8 % 11/10/2023 1:06 AM [facility] NRBC% auto 0.2 % 11/10/2023 1:06 AM [facility] NRBC Absolute 0.04(H) 0.00 - 0.00 x10(3)/mc L 11/10/2023 1:06 AM [facility] Neutrophil % 88.1 % 11/10/2023 1:06 AM [facility] [facility] Neutrophil Absolute (ANC) - Automated 17.51(H) 1.70 - 6.10 x10(3)/mc L 11/10/2023 1:06 AM [facility] Lymph % 6.5 % 11/10/2023 1:06 AM [facility] Lymph Absolute 1.29 0.90 - 3.20 x10(3)/mc L 11/10/2023 1:06 AM EDT [facility] Monocyte % 1.6 % 11/10/2023 1:06 AM EDT [facility] Monocyte Absolute 0.31 0.30 - 0.90 x10(3)/mc L 11/10/2023 1:06 AM EDT [facility] Eos % 1.2 % 11/10/2023 1:06 AM EDT [facility] Eos Absolute 0.24 0.00 - 0.40 x10(3)/mc L 11/10/2023 1:06 AM EDT [facility] Basophil % 0.2 % 11/10/2023 1:06 AM EDT [facility] Baso Absolute 0.04 0.00 - 0.10 x10(3)/mc L 11/10/2023 1:06 AM EDT [facility] Immature Gran % 2.4 % 1:06 AM EDT [facility] Immature Gran Absolute 0.48(H) 0.00 - 0.04 x10(3)/mc L 11/10/2023 1:06 AM EDT [facility] Blood VENOUS BLOOD SPECIMEN / Unknown IP Care Team Draw / Unknown 11/10/2023 12:43 AM EDT 11/10/2023 12:51 AM EDT Timi Person MD HEMATOLOGY ORDERABL ES [facility] [place] [address] * (ABNORMAL) Basic Metabolic Panel (11/10/2023 12:43 AM EDT) Glucose 184 65 - 199 mg/dL 11/10/2023 1:19 AM EDT [facility] Comment:Glucose Concentratio n >=200 mg/dL plus symptoms is consistent with Diabetes Mellitus. Blood Urea Nitrogen 31(H) 10 - 20 mg/dL 11/10/2023 1:19 AM [facility] Creatinine 1.63(H) 0.80 - 1.50 mg/dL 11/10/2023 1:19 AM [facility] Sodium 136 135 - 145 mMol/L 11/10/2023 1:19 AM [facility] Potassium 4.7 3.5 - 5.0 mMol/L 11/10/2023 1:19 AM [facility] Chloride 102 98 - 107 mMol/L 11/10/2023 1:19 AM [facility] Carbon Dioxide 23 22 - 31 mMol/L 11/10/2023 1:19 AM [facility] Anion Gap 11 5 - 15 mMol/L 11/10/2023 1:19 AM [facility] Calcium 9.1 8.5 - 10.5 mg/dL 11/10/2023 1:19 AM [facility] Est Glomerular Filtration Rate - Male 53 mL/min/1. 73 m?? 11/10/2023 1:19 AM [facility] Comment: This patient's estimated GFR was [...] EDT Timi Person MD CHEMISTRY ORDERABLE S [facility] [place] [address] * Phosphorus (11/10/2023 12:43 AM EDT) Phosphorus 3.2 2.5 - 4.5 mg/dL 11/10/2023 1:19 AM EDT [facility] Blood VENOUS BLOOD SPECIMEN / Unknown IP Care Team Draw / Unknown 11/10/2023 12:43 AM EDT 11/10/2023 12:51 AM EDT Timi Person MD CHEMISTRY ORDERABLE S [facility] [place] [address] * Magnesium (11/10/2023 12:43 AM EDT) Magnesium 0.82 0.69 - 1.07 mMol/L 11/10/2023 1:19 AM EDT [facility] Blood VENOUS BLOOD SPECIMEN / Unknown IP Care Team Draw / Unknown 11/10/2023 12:43 AM EDT 11/10/2023 12:51 AM EDT Timi Person MD CHEMISTRY ORDERABLE S [facility] [place] [address] * POC, GLUCOSE (11/09/2023 8:30 PM EDT) Glucometer, POC 170 65 - 199 mg/dL 11/09/2023 8:30 PM EDT [facility] Comment:Supplemental ranges: <140 mg/dL before meals <180 mg/dL all other times of the day. Blood CAPILLARY BLOOD / Unknown 11/09/2023 8:30 PM EDT 11/09/2023 8:31 PM EDT Timi Person MD POINT OF CARE TEST ORDERABLES [facility] [place] [address] * Phosphorus (11/09/2023 3:59 PM EDT) Pathologist [facility] Phosphorus 2.9 2.5 - 4.5 mg/dL 11/09/2023 5:18 PM EDT [facility] Blood VENOUS BLOOD SPECIMEN / Unknown IP Care Team Draw / Unknown 11/09/2023 3:59 PM EDT 11/09/2023 4:39 PM EDT Calos Lazo MD CHEMISTRY ORDERABLES [facility] [place] [address] * (ABNORMAL) Blood Gas, Arterial POC (11/09/2023 3:57 PM EDT) Pathologist [facility] pH, Arterial 7.42 7.35 - 7.45 11/09/2023 3:58 PM EDT [facility] PCO2, Arterial 38 35 - 45 mmHg 11/09/2023 3:58 PM EDT [facility] PO2, Arterial 84(L) 85 - 104 mmHg 11/09/2023 3:58 PM EDT [facility] Bicarbonate, Arterial 24.2 20.0 - 26.0 mmol/L 11/09/2023 3:58 PM EDT [facility] Base Excess, Arterial -0.3 -3.0 - 3.0 mmol/L 11/09/2023 3:58 PM EDT [facility] Hemoglobin, Arterial 10.3(L) 13.7 - 16.5 g/dL 11/09/2023 3:58 PM EDT [facility] Oxyhemoglobin, Arterial 95.7 94.0 - 97.0 % 11/09/2023 3:58 PM EDT [facility] Carboxyhemoglobin , Arterial 0.0 % 11/09/2023 3:58 PM EDT [facility] Comment: Nonsmokers: 0.5-1.5% COHB ?? Smokers: Variable ??but usually less than 10% ?? Toxic: 20-30% COHB ?? Lethal: Greater than 60% COHB Methemoglobin, Arterial 0.3 <=1.5 % 11/09/2023 3:58 PM EDT [facility] Sodium, Arterial 134(L) 135 - 145 mmol/L 11/09/2023 3:58 PM EDT [facility] Potassium, Arterial 4.8 3.5 - 5.0 mmol/L 11/09/2023 3:58 PM EDT [facility] Chloride, Arterial 103 98 - 107 mmol/L 11/09/2023 3:58 PM EDT [facility] Lactate, Arterial 0.8 0.5 - 2.2 mmol/L 11/09/2023 3:58 PM EDT [facility] Fraction of Inspired Oxygen 40 % 11/09/2023 3:58 PM EDT [facility] PF Ratio 210 Ratio 11/09/2023 3:58 PM EDT [facility] Comment:PF ratio calculated using the non-temperature corrected pO2 result. IONIZED CALCIUM, ARTERIAL 1.21 1.15 - 1.33 mmol/L 11/09/2023 3:58 PM EDT [facility] Glucose, Arterial 216(H) 65 - 199 mg/dL 11/09/2023 3:58 PM EDT [facility] Comment:Glucose Concentratio n >=200 mg/dL plus symptoms is consistent with Diabetes Mellitus. Blood ARTERIAL BLOOD / Unknown 11/09/2023 3:57 PM EDT 11/09/2023 3:58 PM EDT Timi Person MD POINT OF CARE TEST ORDERABLES [facility] [place] [address] * (ABNORMAL) Blood Gas, Arterial POC (11/09/2023 1:59 PM EDT) pH, Arterial 7.43 7.35 - 7.45 11/09/2023 2:00 PM EDT [facility] PCO2, Arterial 37 35 - 45 mmHg 11/09/2023 2:00 PM T [facility] PO2, Arterial 71(L) 85 - 104 mmHg 11/09/2023 2:00 PM EDT [facility] Bicarbonate, Arterial 24.2 20.0 - 26.0 mmol/L 11/09/2023 2:00 PM EDT [facility] Base Excess, Arterial -0.2 -3.0 - 3.0 mmol/L 11/09/2023 2:00 PM EDT [facility] Hemoglobin, Arterial 10.5(L) 13.7 - 16.5 g/dL 11/09/2023 2:00 PM [facility] Oxyhemoglobin, Arterial 93.8(L) 94.0 - 97.0 % 11/09/2023 2:00 PM [facility] Carboxyhemoglobin , Arterial 0.1 % 11/09/2023 2:00 PM [facility] Comment: Nonsmokers: 0.5-1.5% COHB ?? Smokers: Variable ??but usually less than 10% ?? Toxic: 20-30% COHB ?? Lethal: Greater than 60% COHB Methemoglobin, Arterial 0.3 <=1.5 % 11/09/2023 2:00 PM T [facility] Sodium, Arterial 137 135 - 145 mmol/L 11/09/2023 2:00 PM [facility] Potassium, Arterial 4.2 3.5 - 5.0 mmol/L 11/09/2023 2:00 PM EDT [facility] Chloride, Arterial 106 98 - 107 mmol/L 11/09/2023 2:00 PM [facility] Lactate, Arterial 0.8 0.5 - 2.2 mmol/L 11/09/2023 2:00 PM [facility] Fraction of Inspired Oxygen 40 % 11/09/2023 2:00 PM EDT [facility] PF Ratio 178 Ratio 11/09/2023 2:00 PM EDT [facility] Comment:PF ratio calculated using the non-temperature corrected pO2 result. IONIZED CALCIUM, ARTERIAL 1.19 1.15 - 1.33 mmol/L 11/09/2023 2:00 PM EDT [facility] Glucose, Arterial 169 65 - 199 mg/dL 11/09/2023 2:00 PM EDT [facility] Comment:Glucose Concentratio n >=200 mg/dL plus symptoms is consistent with Diabetes Mellitus. Blood ARTERIAL BLOOD / Unknown 11/09/2023 1:59 PM EDT 11/09/2023 2:00 PM EDT Timi Person MD POINT OF CARE TEST ORDERABLES [facility] [place] [address] * (ABNORMAL) Blood Gas, Arterial POC (11/09/2023 11:34 AM EDT) pH, Arterial 7.44 7.35 - 7.45 11/09/2023 11:35 AM EDT [facility] PCO2, Arterial 35 35 - 45 mmHg 11/09/2023 11:35 AM EDT [facility] PO2, Arterial 74(L) 85 - 104 mmHg 11/09/2023 11:35 AM EDT [facility] Bicarbonate, Arterial 23.1 20.0 - 26.0 mmol/L 11/09/2023 11:35 AM EDT [facility] Base Excess, Arterial -1.0 -3.0 - 3.0 mmol/L 11/09/2023 11:35 AM EDT [facility] Hemoglobin, Arterial 11.1(L) 13.7 - 16.5 g/dL 11/09/2023 11:35 AM EDT [facility] Oxyhemoglobin, Arterial 94.8 94.0 - 97.0 % 11/09/2023 11:35 AM EDT [facility] Carboxyhemoglobin , Arterial 0.1 % 11/09/2023 11:35 AM EDT [facility] Comment: Nonsmokers: 0.5-1.5% COHB ?? Smokers: Variable ??but usually less than 10% ?? Toxic: 20-30% COHB ?? Lethal: Greater than 60% COHB Methemoglobin, Arterial 0.3 <=1.5 % 11/09/2023 11:35 AM EDT [facility] Sodium, Arterial 135 135 - 145 mmol/L 11/09/2023 11:35 AM EDT [facility] Potassium, Arterial 4.4 3.5 - 5.0 mmol/L 11/09/2023 11:35 AM EDT [facility] Chloride, Arterial 105 98 - 107 mmol/L 11/09/2023 11:35 AM EDT [facility] Lactate, Arterial 0.8 0.5 - 2.2 mmol/L 11/09/2023 11:35 AM EDT [facility] Fraction of Inspired Oxygen 40 % 11/09/2023 11:35 AM T [facility] PF Ratio 185 Ratio 11/09/2023 11:35 AM EDT [facility] Comment:PF ratio calculated using the non-temperature corrected pO2 result. IONIZED CALCIUM, ARTERIAL 1.20 1.15 - 1.33 mmol/L 11/09/2023 11:35 AM EDT [facility] Glucose, Arterial 191 65 - 199 mg/dL 11/09/2023 11:35 AM EDT [facility] Comment:Glucose Concentratio n >=200 mg/dL plus symptoms is consistent with Diabetes Mellitus. Blood ARTERIAL BLOOD / Unknown 11/09/2023 11:34 AM EDT 11/09/2023 11:35 AM EDT Timi Person MD POINT OF CARE TEST ORDERABLES [facility] [place] [address] * (ABNORMAL) Phosphorus (11/09/2023 11:33 AM EDT) Phosphorus 2.3(L) 2.5 - 4.5 mg/dL 11/09/2023 12:18 PM EDT [facility] Blood VENOUS BLOOD SPECIMEN / Unknown IP Care Team Draw / Unknown 11/09/2023 11:33 AM EDT 11/09/2023 11:51 AM EDT Calos Lazo MD CHEMISTRY ORDERABLES [facility] [place] [address] * Magnesium (11/09/2023 11:33 AM EDT) Magnesium 0.80 0.69 - 1.07 mMol/L 11/09/2023 12:18 PM EDT [facility] Blood VENOUS BLOOD SPECIMEN / Unknown IP Care Team Draw / Unknown 11/09/2023 11:33 AM EDT 11/09/2023 11:51 AM EDT Calos Lazo MD CHEMISTRY ORDERABLES Performing Organization Address City/[facility] [address]/ZIP Co de Phone Number [facility] [place] [address] * (ABNORMAL) Creatinine (11/09/2023 11:33 AM EDT) Creatinine 1.80(H) 0.80 - 1.50 mg/dL 11/09/2023 12:18 PM EDT [facility] Est Glomerular Filtration Rate - Male 47 mL/min/1. 73 m?? 11/09/2023 12:18 PM EDT [facility] Comment: This patient's estimated [...] Lazo MD CHEMISTRY ORDERABLES Performing Organization Address City/[facility] [address]/ZIP Co de Phone Number [facility] [place] [address] * (ABNORMAL) BUN (11/09/2023 11:33 AM EDT) Blood Urea Nitrogen 34(H) 10 - 20 mg/dL 11/09/2023 12:18 PM EDT [facility] Blood VENOUS BLOOD SPECIMEN / Unknown IP Care Team Draw / Unknown 11/09/2023 11:33 AM EDT 11/09/2023 11:51 AM EDT Calos Lazo MD CHEMISTRY ORDERABLES Performing Organization Address City/[facility] [address]/ZIP Co de Phone Number [facility] [place] [address] * (ABNORMAL) Electrolytes panel (11/09/2023 11:33 AM EDT) Sodium 134(L) 135 - 145 mMol/L 11/09/2023 12:18 PM EDT [facility] Potassium 4.3 3.5 - 5.0 mMol/L 11/09/2023 12:18 PM EDT [facility] Chloride 101 98 - 107 mMol/L 11/09/2023 12:18 PM EDT [facility] Carbon Dioxide 22 22 - 31 mMol/L 11/09/2023 12:18 PM EDT [facility] Anion Gap 11 5 - 15 mMol/L 11/09/2023 12:18 PM EDT [facility] Blood VENOUS BLOOD SPECIMEN / Unknown IP Care Team Draw / Unknown 11/09/2023 11:33 AM EDT 11/09/2023 11:51 AM EDT Calos Lazo MD CHEMISTRY ORDERABLES [facility] [place] [address] * (ABNORMAL) Blood Gas, Arterial POC (11/09/2023 9:05 AM EDT) pH, Arterial 7.44 7.35 - 7.45 11/09/2023 9:08 AM EDT [facility] PCO2, Arterial 33(L) 35 - 45 mmHg 11/09/2023 9:08 AM EDT [facility] PO2, Arterial 105(H) 85 - 104 mmHg 11/09/2023 9:08 AM EDT [facility] Bicarbonate, Arterial 22.0 20.0 - 26.0 mmol/L 11/09/2023 9:08 AM EDT [facility] Base Excess, Arterial -2.2 -3.0 - 3.0 mmol/L 11/09/2023 9:08 AM EDT [facility] Hemoglobin, Arterial 9.9(L) 13.7 - 16.5 g/dL 11/09/2023 9:08 AM EDT [facility] Oxyhemoglobin, Arterial 97.1(H) 94.0 - 97.0 % 11/09/2023 9:08 AM EDT [facility] Carboxyhemoglobin , Arterial 0.3 % 11/09/2023 9:08 AM EDT [facility] Comment: Nonsmokers: 0.5-1.5% COHB ?? Smokers: Variable ??but usually less than 10% ?? Toxic: 20-30% COHB ?? Lethal: Greater than 60% COHB Methemoglobin, Arterial 0.3 <=1.5 % 11/09/2023 9:08 AM EDT [facility] Sodium, Arterial 135 135 - 145 mmol/L 11/09/2023 9:08 AM EDT [facility] Potassium, Arterial 4.0 3.5 - 5.0 mmol/L 11/09/2023 9:08 AM EDT [facility] Chloride, Arterial 105 98 - 107 mmol/L 11/09/2023 9:08 AM EDT [facility] Lactate, Arterial 0.8 0.5 - 2.2 mmol/L 11/09/2023 9:08 AM EDT [facility] Fraction of Inspired Oxygen 50 % 11/09/2023 9:08 AM EDT [facility] PF Ratio 210 Ratio 11/09/2023 9:08 AM EDT [facility] Comment:PF ratio calculated using the non-temperature corrected pO2 result. IONIZED CALCIUM, ARTERIAL 1.17 1.15 - 1.33 mmol/L 11/09/2023 9:08 AM EDT [facility] Glucose, Arterial 185 65 - 199 mg/dL 11/09/2023 9:08 AM EDT [facility] Comment:Glucose Concentratio n >=200 mg/dL plus symptoms is consistent with Diabetes Mellitus. Blood ARTERIAL BLOOD / Unknown 11/09/2023 9:05 AM EDT 11/09/2023 9:08 AM EDT Timi Person MD POINT OF CARE TEST ORDERABLES [facility] [place] [address] * (ABNORMAL) Blood Gas, Arterial POC (11/09/2023 7:47 AM EDT) pH, Arterial 7.42 7.35 - 7.45 11/09/2023 8:28 AM EDT [facility] PCO2, Arterial 37 35 - 45 mmHg 11/09/2023 8:28 AM EDT [facility] PO2, Arterial 89 85 - 104 mmHg 11/09/2023 8:28 AM EDT [facility] Bicarbonate, Arterial 23.4 20.0 - 26.0 mmol/L 11/09/2023 8:28 AM EDT [facility] Base Excess, Arterial -1.2 -3.0 - 3.0 mmol/L 11/09/2023 8:28 AM [facility] Hemoglobin, Arterial 11.0(L) 13.7 - 16.5 g/dL 11/09/2023 8:28 AM [facility] Oxyhemoglobin, Arterial 96.2 94.0 - 97.0 % 11/09/2023 8:28 AM [facility] Carboxyhemoglobin , Arterial 0.2 % 11/09/2023 8:28 AM [facility] Comment: Nonsmokers: 0.5-1.5% COHB ?? Smokers: Variable ??but usually less than 10% ?? Toxic: 20-30% COHB ?? Lethal: Greater than 60% COHB Methemoglobin, Arterial 0.3 <=1.5 % 11/09/2023 8:28 AM [facility] Sodium, Arterial 136 135 - 145 mmol/L 11/09/2023 8:28 AM [facility] Potassium, Arterial 4.2 3.5 - 5.0 mmol/L 11/09/2023 8:28 AM [facility] Chloride, Arterial 104 98 - 107 mmol/L 11/09/2023 8:28 AM [facility] Lactate, Arterial 0.7 0.5 - 2.2 mmol/L 11/09/2023 8:28 AM [facility] Fraction of Inspired Oxygen 50 % 11/09/2023 8:28 AM [facility] PF Ratio 178 Ratio 11/09/2023 8:28 AM [facility] Comment:PF ratio calculated using the non-temperature corrected pO2 result. IONIZED CALCIUM, ARTERIAL 1.19 1.15 - 1.33 mmol/L 11/09/2023 8:28 AM [facility] Glucose, Arterial 168 65 - 199 mg/dL 11/09/2023 8:28 AM [facility] Comment:Glucose Concentratio n >=200 mg/dL plus symptoms is consistent with Diabetes Mellitus. Blood ARTERIAL BLOOD / Unknown 11/09/2023 7:47 AM EDT 11/09/2023 8:28 AM EDT Timi Person MD POINT OF CARE TEST ORDERABLES [facility] [place] [address] * (ABNORMAL) Blood Gas, Arterial POC (11/09/2023 6:24 AM EDT) pH, Arterial 7.39 7.35 - 7.45 11/09/2023 6:26 AM EDT [facility] PCO2, Arterial 39 35 - 45 mmHg 11/09/2023 6:26 AM EDT [facility] PO2, Arterial 100 85 - 104 mmHg 11/09/2023 6:26 AM EDT [facility] Bicarbonate, Arterial 23.2 20.0 - 26.0 mmol/L 11/09/2023 6:26 AM EDT [facility] Base Excess, Arterial -1.7 -3.0 - 3.0 mmol/L 11/09/2023 6:26 AM EDT [facility] Hemoglobin, Arterial 10.1(L) 13.7 - 16.5 g/dL 11/09/2023 6:26 AM EDT [facility] Oxyhemoglobin, Arterial 96.9 94.0 - 97.0 % 11/09/2023 6:26 AM EDT [facility] Carboxyhemoglobin , Arterial 0.1 % 11/09/2023 6:26 AM EDT [facility] Comment: Nonsmokers: 0.5-1.5% COHB ?? Smokers: Variable ??but usually less than 10% ?? Toxic: 20-30% COHB ?? Lethal: Greater than 60% COHB Methemoglobin, Arterial 0.3 <=1.5 % 11/09/2023 6:26 AM EDT [facility] Sodium, Arterial 136 135 - 145 mmol/L 11/09/2023 6:26 AM EDT [facility] Potassium, Arterial 4.0 3.5 - 5.0 mmol/L 11/09/2023 6:26 AM EDT [facility] Chloride, Arterial 106 98 - 107 mmol/L 11/09/2023 6:26 AM EDT [facility] Lactate, Arterial 0.7 0.5 - 2.2 mmol/L 11/09/2023 6:26 AM EDT [facility] IONIZED CALCIUM, ARTERIAL 1.19 1.15 - 1.33 mmol/L 11/09/2023 6:26 AM EDT [facility] Glucose, Arterial 167 65 - 199 mg/dL 11/09/2023 6:26 AM EDT [facility] Comment:Glucose Concentratio n >=200 mg/dL plus symptoms is consistent with Diabetes Mellitus. Blood ARTERIAL BLOOD / Unknown 11/09/2023 6:24 AM EDT 11/09/2023 6:26 AM EDT Timi Person MD POINT OF CARE TEST ORDERABLES [facility] [place] [address] * POC, GLUCOSE (11/09/2023 4:14 AM EDT) [facility] Signature Glucometer, POC 152 65 - 199 mg/dL 11/09/2023 4:24 AM EDT [facility] Comment:Supplemental ranges: <140 mg/dL before meals <180 mg/dL all other times of the day. Blood CAPILLARY BLOOD / Unknown 11/09/2023 4:14 AM EDT 11/09/2023 4:24 AM EDT Timi Person MD POINT OF CARE TEST ORDERABLES [facility] [place] [address] * (ABNORMAL) Blood Gas, Arterial POC (11/09/2023 12:19 AM EDT) [facility] pH, Arterial 7.41 7.35 - 7.45 11/09/2023 12:20 AM [facility] PCO2, Arterial 36 35 - 45 mmHg 11/09/2023 12:20 AM [facility] PO2, Arterial 85 85 - 104 mmHg 11/09/2023 12:20 AM [facility] Bicarbonate, Arterial 22.2 20.0 - 26.0 mmol/L 11/09/2023 12:20 AM [facility] Base Excess, Arterial -2.5 -3.0 - 3.0 mmol/L 11/09/2023 12:20 AM [facility] Hemoglobin, Arterial 10.0(L) 13.7 - 16.5 g/dL 11/09/2023 12:20 AM [facility] Oxyhemoglobin, Arterial 95.4 94.0 - 97.0 % 11/09/2023 12:20 AM [facility] Carboxyhemoglobin , Arterial 0.3 % 11/09/2023 12:20 AM [facility] Comment: Nonsmokers: 0.5-1.5% COHB ?? Smokers: Variable ??but usually less than 10% ?? Toxic: 20-30% COHB ?? Lethal: Greater than 60% COHB Methemoglobin, Arterial 0.3 <=1.5 % 11/09/2023 12:20 AM [facility] Sodium, Arterial 135 135 - 145 mmol/L 11/09/2023 12:20 AM [facility] Potassium, Arterial 4.2 3.5 - 5.0 mmol/L 11/09/2023 12:20 AM [facility] Chloride, Arterial 103 98 - 107 mmol/L 11/09/2023 12:20 AM [facility] Lactate, Arterial 0.8 0.5 - 2.2 mmol/L 11/09/2023 12:20 AM [facility] IONIZED CALCIUM, ARTERIAL 1.21 1.15 - 1.33 mmol/L 11/09/2023 12:20 AM EDT [facility] Glucose, Arterial 234(H) 65 - 199 mg/dL 11/09/2023 12:20 AM EDT [facility] Comment:Glucose Concentratio n >=200 mg/dL plus symptoms is consistent with Diabetes Mellitus. Blood ARTERIAL BLOOD / Unknown 11/09/2023 12:19 AM EDT 11/09/2023 12:20 AM EDT Timi Person MD POINT OF CARE TEST ORDERABLES [facility] [place] [address] * (ABNORMAL) CBC (with Diff) (11/09/2023 12:16 AM EDT) White Blood Cell 18.26(H) 4.00 - 9.50 x10(3)/mc L 11/09/2023 12:45 AM EDT [facility] Red Blood Cell 4.10(L) 4.58 - 5.54 x10(6)/mc L 11/09/2023 12:45 AM [facility] Hemoglobin 8.9(L) 13.7 - 16.5 g/dL 11/09/2023 12:45 AM [facility] Hematocrit 28.7(L) 40.5 - 48.5 % 11/09/2023 12:45 AM [facility] Mean Cell Volume 70.0(L) 82.9 - 93.1 fL 11/09/2023 12:45 AM EDT [facility] Mean Cell Hemoglobin 21.7(L) 27.5 - 32.1 pg 11/09/2023 12:45 AM [facility] Mean Cell Hemoglobin Concentration 31.0(L) 32.0 - 35.7 g/dL 11/09/2023 12:45 AM [facility] Platelet 273 145 - 357 x10(3)/mc L 11/09/2023 12:45 AM [facility] Mean Platelet Volume 10.4 7.6 - 12.9 fL 11/09/2023 12:45 AM [facility] RDW Standard Deviation 52.7(H) 36.0 - 45.0 fL 11/09/2023 12:45 AM [facility] RDW coefficient of variation 21.4(H) 11.4 - 13.8 % 11/09/2023 12:45 AM [facility] NRBC% auto 0.2 % 11/09/2023 12:45 AM [facility] LABORATORY NRBC Absolute 0.03(H) 0.00 - 0.00 x10(3)/mc L 11/09/2023 12:45 AM [facility] Neutrophil % 87.2 % 11/09/2023 12:45 AM [facility] Neutrophil Absolute (ANC) - Automated 15.92(H) 1.70 - 6.10 x10(3)/mc L 11/09/2023 12:45 AM [facility] Lymph % 5.9 % 11/09/2023 12:45 AM [facility] Lymph Absolute 1.08 0.90 - 3.20 x10(3)/mc L 11/09/2023 12:45 AM [facility] Monocyte % 2.1 % 11/09/2023 12:45 AM [facility] Monocyte Absolute 0.38 0.30 - 0.90 x10(3)/mc L 11/09/2023 12:45 AM [facility] Eos % 2.2 % 11/09/2023 12:45 AM [facility] Eos Absolute 0.41(H) 0.00 - 0.40 x10(3)/mc L 11/09/2023 12:45 AM [facility] Basophil % 0.2 % 11/09/2023 12:45 AM [facility] Baso Absolute 0.04 0.00 - 0.10 x10(3)/mc L 11/09/2023 12:45 AM EDT [facility] Immature Gran % 2.4 % 12:45 AM EDT [facility] Immature Gran Absolute 0.43(H) 0.00 - 0.04 x10(3)/mc L 11/09/2023 12:45 AM EDT [facility] Blood VENOUS BLOOD SPECIMEN / Unknown IP Care Team Draw / Unknown 11/09/2023 12:16 AM EDT 11/09/2023 12:39 AM EDT Timi Person MD HEMATOLOGY ORDERABL ES [facility] [place] [address] * (ABNORMAL) Basic Metabolic Panel (11/09/2023 12:16 AM EDT) Glucose 240(H) 65 - 199 mg/dL 11/09/2023 1:10 AM EDT [facility] Comment:Glucose Concentratio n >=200 mg/dL plus symptoms is consistent with Diabetes Mellitus. Blood Urea Nitrogen 41(H) 10 - 20 mg/dL 11/09/2023 1:10 AM EDT [facility] Creatinine 2.36(H) 0.80 - 1.50 mg/dL 11/09/2023 1:10 AM EDT [facility] Sodium 134(L) 135 - 145 mMol/L 11/09/2023 1:10 AM EDT [facility] Potassium 4.2 3.5 - 5.0 mMol/L 11/09/2023 1:10 AM EDT [facility] Chloride 102 98 - 107 mMol/L 11/09/2023 1:10 AM EDT [facility] Carbon Dioxide 23 22 - 31 mMol/L 11/09/2023 1:10 AM EDT [facility] Anion Gap 9 5 - 15 mMol/L 11/09/2023 1:10 AM EDT [facility] Calcium 8.7 8.5 - 10.5 mg/dL 11/09/2023 1:10 AM EDT [facility] Est Glomerular Filtration Rate - Male 34 mL/min/1. 73 m?? 11/09/2023 1:10 AM EDT [facility] Comment: This patient's estimated [...] EDT Timi Person MD CHEMISTRY ORDERABLE S [facility] [place] [address] * Phosphorus (11/09/2023 12:16 AM EDT) Phosphorus 2.8 2.5 - 4.5 mg/dL 11/09/2023 1:10 AM EDT [facility] Blood VENOUS BLOOD SPECIMEN / Unknown IP Care Team Draw / Unknown 11/09/2023 12:16 AM EDT 11/09/2023 12:39 AM EDT Timi Person MD CHEMISTRY ORDERABLE S [facility] [place] [address] * Magnesium (11/09/2023 12:16 AM EDT) [facility] Magnesium 0.84 0.69 - 1.07 mMol/L 11/09/2023 1:10 AM EDT [facility] Blood VENOUS BLOOD SPECIMEN / Unknown IP Care Team Draw / Unknown 11/09/2023 12:16 AM EDT 11/09/2023 12:39 AM EDT Timi Person MD CHEMISTRY ORDERABLE S [facility] [place] [address] * (ABNORMAL) Blood Gas, Arterial POC (11/08/2023 8:39 PM EDT) [facility] pH, Arterial 7.42 7.35 - 7.45 11/08/2023 8:40 PM EDT [facility] PCO2, Arterial 37 35 - 45 mmHg 11/08/2023 8:40 PM EDT [facility] PO2, Arterial 76(L) 85 - 104 mmHg 11/08/2023 8:40 PM EDT [facility] Bicarbonate, Arterial 23.5 20.0 - 26.0 mmol/L 11/08/2023 8:40 PM EDT [facility] Base Excess, Arterial -0.9 -3.0 - 3.0 mmol/L 11/08/2023 8:40 PM EDT [facility] Hemoglobin, Arterial 10.4(L) 13.7 - 16.5 g/dL 11/08/2023 8:40 PM EDT [facility] Oxyhemoglobin, Arterial 94.2 94.0 - 97.0 % 11/08/2023 8:40 PM EDT [facility] Carboxyhemoglobin , Arterial 0.1 % 11/08/2023 8:40 PM EDT [facility] Comment: Nonsmokers: 0.5-1.5% COHB ?? Smokers: Variable ??but usually less than 10% ?? Toxic: 20-30% COHB ?? Lethal: Greater than 60% COHB Methemoglobin, Arterial 0.3 <=1.5 % 11/08/2023 8:40 PM EDT [facility] Sodium, Arterial 136 135 - 145 mmol/L 11/08/2023 8:40 PM EDT [facility] Potassium, Arterial 4.2 3.5 - 5.0 mmol/L 11/08/2023 8:40 PM EDT [facility] Chloride, Arterial 104 98 - 107 mmol/L 11/08/2023 8:40 PM EDT [facility] Lactate, Arterial 0.7 0.5 - 2.2 mmol/L 11/08/2023 8:40 PM EDT [facility] IONIZED CALCIUM, ARTERIAL 1.18 1.15 - 1.33 mmol/L 11/08/2023 8:40 PM EDT [facility] Glucose, Arterial 241(H) 65 - 199 mg/dL 11/08/2023 8:40 PM EDT [facility] Comment:Glucose Concentratio n >=200 mg/dL plus symptoms is consistent with Diabetes Mellitus. Blood ARTERIAL BLOOD / Unknown 11/08/2023 8:39 PM EDT 11/08/2023 8:40 PM EDT Timi Person MD POINT OF CARE TEST ORDERABLES [facility] [place] [address] * (ABNORMAL) Blood Gas, Arterial POC (11/08/2023 6:13 PM EDT) pH, Arterial 7.44 7.35 - 7.45 11/08/2023 6:14 PM EDT [facility] PCO2, Arterial 28(L) 35 - 45 mmHg 11/08/2023 6:14 PM EDT [facility] PO2, Arterial 83(L) 85 - 104 mmHg 11/08/2023 6:14 PM EDT [facility] Bicarbonate, Arterial 18.7(L) 20.0 - 26.0 mmol/L 11/08/2023 6:14 PM [facility] Base Excess, Arterial -5.5(L) -3.0 - 3.0 mmol/L 11/08/2023 6:14 PM [facility] Hemoglobin, Arterial 10.4(L) 13.7 - 16.5 g/dL 11/08/2023 6:14 PM [facility] Oxyhemoglobin, Arterial 95.4 94.0 - 97.0 % 11/08/2023 6:14 PM [facility] Carboxyhemoglobin , Arterial 0.2 % 11/08/2023 6:14 PM [facility] Comment: Nonsmokers: 0.5-1.5% COHB ?? Smokers: Variable ??but usually less than 10% ?? Toxic: 20-30% COHB ?? Lethal: Greater than 60% COHB Methemoglobin, Arterial 0.3 <=1.5 % 11/08/2023 6:14 PM [facility] Sodium, Arterial 136 135 - 145 mmol/L 11/08/2023 6:14 PM [facility] Potassium, Arterial 3.4(L) 3.5 - 5.0 mmol/L 11/08/2023 6:14 PM [facility] Chloride, Arterial 110(H) 98 - 107 mmol/L 11/08/2023 6:14 PM [facility] Lactate, Arterial 0.7 0.5 - 2.2 mmol/L 11/08/2023 6:14 PM [facility] Fraction of Inspired Oxygen 50 % 11/08/2023 6:14 PM [facility] PF Ratio 166 Ratio 11/08/2023 6:14 PM [facility] Comment:PF ratio calculated using the non-temperature corrected pO2 result. IONIZED CALCIUM, ARTERIAL 1.08(L) 1.15 - 1.33 mmol/L 11/08/2023 6:14 PM [facility] Glucose, Arterial 223(H) 65 - 199 mg/dL 11/08/2023 6:14 PM EDT [facility] Comment:Glucose Concentratio n >=200 mg/dL plus symptoms is consistent with Diabetes Mellitus. Blood ARTERIAL BLOOD / Unknown 11/08/2023 6:13 PM EDT 11/08/2023 6:14 PM EDT Timi Person MD POINT OF CARE TEST ORDERABLES Performing Organization Address [facility] [address]/[facility] Co de Phone Number [facility] [place] [address] * (ABNORMAL) POC, GLUCOSE (11/08/2023 3:54 PM EDT) Glucometer, POC 228(H) 65 - 199 mg/dL 11/08/2023 3:54 PM EDT [facility] Comment:Supplemental ranges: <140 mg/dL before meals <180 mg/dL all other times of the day. Blood CAPILLARY BLOOD / Unknown 11/08/2023 3:54 PM EDT 11/08/2023 3:54 PM EDT Timi Person MD POINT OF CARE TEST ORDERABLES Performing Organization Address [facility] [address]/[facility] Co de Phone Number [facility] [place] [address] * (ABNORMAL) Blood Gas, Arterial POC (11/08/2023 1:11 PM EDT) pH, Arterial 7.40 7.35 - 7.45 11/08/2023 1:12 PM EDT [facility] PCO2, Arterial 36 35 - 45 mmHg 11/08/2023 1:12 PM EDT [facility] PO2, Arterial 115(H) 85 - 104 mmHg 11/08/2023 1:12 PM EDT [facility] Bicarbonate, Arterial 21.8 20.0 - 26.0 mmol/L 11/08/2023 1:12 PM EDT [facility] Base Excess, Arterial -2.9 -3.0 - 3.0 mmol/L 11/08/2023 1:12 PM [facility] Hemoglobin, Arterial 10.3(L) 13.7 - 16.5 g/dL 11/08/2023 1:12 PM [facility] Oxyhemoglobin, Arterial 97.3(H) 94.0 - 97.0 % 11/08/2023 1:12 PM [facility] Carboxyhemoglobin , Arterial 0.3 % 11/08/2023 1:12 PM [facility] Comment: Nonsmokers: 0.5-1.5% COHB ?? Smokers: Variable ??but usually less than 10% ?? Toxic: 20-30% COHB ?? Lethal: Greater than 60% COHB Methemoglobin, Arterial 0.3 <=1.5 % 11/08/2023 1:12 PM [facility] Sodium, Arterial 136 135 - 145 mmol/L 11/08/2023 1:12 PM [facility] Potassium, Arterial 4.0 3.5 - 5.0 mmol/L 11/08/2023 1:12 PM [facility] Chloride, Arterial 106 98 - 107 mmol/L 11/08/2023 1:12 PM [facility] Lactate, Arterial 0.8 0.5 - 2.2 mmol/L 11/08/2023 1:12 PM [facility] Fraction of Inspired Oxygen 50 % 11/08/2023 1:12 PM [facility] PF Ratio 230 Ratio 11/08/2023 1:12 PM [facility] Comment:PF ratio calculated using the non-temperature corrected pO2 result. IONIZED CALCIUM, ARTERIAL 1.16 1.15 - 1.33 mmol/L 11/08/2023 1:12 PM [facility] Glucose, Arterial 250(H) 65 - 199 mg/dL 11/08/2023 1:12 PM [facility] Comment:Glucose Concentratio n >=200 mg/dL plus symptoms is consistent with Diabetes Mellitus. Blood ARTERIAL BLOOD / Unknown 11/08/2023 1:11 PM EDT 11/08/2023 1:12 PM EDT Timi Person MD POINT OF CARE TEST ORDERABLES Performing Organization Address [facility] [address]/ZIP Co de Phone Number [facility] [place] [address] * Phosphorus (11/08/2023 11:53 AM EDT) Phosphorus 3.1 2.5 - 4.5 mg/dL 11/08/2023 12:58 PM EDT [facility] Blood ARTERIAL BLOOD / Unknown IP Care Team Draw / Unknown 11/08/2023 11:53 AM EDT 11/08/2023 12:18 PM EDT Calos Lazo MD CHEMISTRY ORDERABLES Performing Organization Address [facility] [address]/[facility] Co de Phone Number [facility] [place] [address] * Magnesium (11/08/2023 11:53 AM EDT) Magnesium 0.85 0.69 - 1.07 mMol/L 11/08/2023 12:58 PM EDT [facility] Blood ARTERIAL BLOOD / Unknown IP Care Team Draw / Unknown 11/08/2023 11:53 AM EDT 11/08/2023 12:18 PM EDT Calos Lazo MD CHEMISTRY ORDERABLES Performing Organization Address City/[facility] [address]/[facility] Co de Phone Number [facility] [place] [address] * (ABNORMAL) Creatinine (11/08/2023 11:53 AM EDT) Creatinine 2.82(H) 0.80 - 1.50 mg/dL 11/08/2023 12:58 PM EDT [facility] Est Glomerular Filtration Rate - Male 27 mL/min/1. 73 m?? 11/08/2023 12:58 PM EDT [facility] Comment: This patient's estimated [...] Lazo MD CHEMISTRY ORDERABLES Performing Organization Address City/[facility] [address]/ZIP Co de Phone Number [facility] [place] [address] * (ABNORMAL) BUN (11/08/2023 11:53 AM EDT) Blood Urea Nitrogen 53(H) 10 - 20 mg/dL 11/08/2023 12:58 PM EDT [facility] Blood ARTERIAL BLOOD / Unknown IP Care Team Draw / Unknown 11/08/2023 11:53 AM EDT 11/08/2023 12:18 PM EDT Calos Lazo MD CHEMISTRY ORDERABLES [facility] [place] [address] * Electrolytes panel (11/08/2023 11:53 AM EDT) Sodium 139 135 - 145 mMol/L 11/08/2023 12:58 PM EDT [facility] Potassium 4.3 3.5 - 5.0 mMol/L 11/08/2023 12:58 PM EDT [facility] Chloride 105 98 - 107 mMol/L 11/08/2023 12:58 PM EDT [facility] Carbon Dioxide 22 22 - 31 mMol/L 11/08/2023 12:58 PM EDT [facility] Anion Gap 12 5 - 15 mMol/L 11/08/2023 12:58 PM EDT [facility] Blood ARTERIAL BLOOD / Unknown IP Care Team Draw / Unknown 11/08/2023 11:53 AM EDT 11/08/2023 12:18 PM EDT Calos Lazo MD CHEMISTRY ORDERABLES [facility] [place] [address] * (ABNORMAL) Blood Gas, Arterial POC (11/08/2023 11:52 AM EDT) pH, Arterial 7.41 7.35 - 7.45 11/08/2023 11:53 AM EDT [facility] PCO2, Arterial 39 35 - 45 mmHg 11/08/2023 11:53 AM [facility] PO2, Arterial 111(H) 85 - 104 mmHg 11/08/2023 11:53 AM T [facility] Bicarbonate, Arterial 24.1 20.0 - 26.0 mmol/L 11/08/2023 11:53 AM [facility] Base Excess, Arterial -0.6 -3.0 - 3.0 mmol/L 11/08/2023 11:53 AM EDT [facility] Hemoglobin, Arterial 10.7(L) 13.7 - 16.5 g/dL 11/08/2023 11:53 AM [facility] Oxyhemoglobin, Arterial 97.5(H) 94.0 - 97.0 % 11/08/2023 11:53 AM [facility] Carboxyhemoglobin , Arterial 0.1 % 11/08/2023 11:53 AM [facility] Comment: Nonsmokers: 0.5-1.5% COHB ?? Smokers: Variable ??but usually less than 10% ?? Toxic: 20-30% COHB ?? Lethal: Greater than 60% COHB Methemoglobin, Arterial 0.3 <=1.5 % 11/08/2023 11:53 AM EDT [facility] Sodium, Arterial 137 135 - 145 mmol/L 11/08/2023 11:53 AM EDT [facility] Potassium, Arterial 4.4 3.5 - 5.0 mmol/L 11/08/2023 11:53 AM EDT [facility] Chloride, Arterial 105 98 - 107 mmol/L 11/08/2023 11:53 AM EDT [facility] Lactate, Arterial 0.9 0.5 - 2.2 mmol/L 11/08/2023 11:53 AM [facility] Fraction of Inspired Oxygen 50 % 11/08/2023 11:53 AM [facility] PF Ratio 222 Ratio 11/08/2023 11:53 AM EDT [facility] Comment:PF ratio calculated using the non-temperature corrected pO2 result. IONIZED CALCIUM, ARTERIAL 1.20 1.15 - 1.33 mmol/L 11/08/2023 11:53 AM EDT [facility] Glucose, Arterial 235(H) 65 - 199 mg/dL 11/08/2023 11:53 AM EDT [facility] Comment:Glucose Concentratio n >=200 mg/dL plus symptoms is consistent with Diabetes Mellitus. Blood ARTERIAL BLOOD / Unknown 11/08/2023 11:52 AM EDT 11/08/2023 11:53 AM EDT Timi Person MD POINT OF CARE TEST ORDERABLES [facility] [place] [address] * (ABNORMAL) POC, GLUCOSE (11/08/2023 11:07 AM EDT) Glucometer, POC 211(H) 65 - 199 mg/dL 11/08/2023 11:09 AM EDT [facility] Comment:Supplemental ranges: <140 mg/dL before meals <180 mg/dL all other times of the day. Blood CAPILLARY BLOOD / Unknown 11/08/2023 11:07 AM EDT 11/08/2023 11:09 AM EDT Timi Person MD POINT OF CARE TEST ORDERABLES [facility] [place] [address] * (ABNORMAL) Blood Gas, Arterial POC (11/08/2023 9:10 AM EDT) pH, Arterial 7.41 7.35 - 7.45 11/08[facility]2023 9:[facility] PCO2, Arterial 34(L) 35 - 45 mmHg 11/08/2023 9:12 AM [facility] PO2, Arterial 133(H) 85 - 104 mmHg 11/08/2023 9:12 AM EDT [facility] Bicarbonate, Arterial 21.0 20.0 - 26.0 mmol/L 11/08/2023 9:12 AM [facility] Base Excess, Arterial -3.6(L) -3.0 - 3.0 mmol/L 11/08/2023 9:12 [facility] Hemoglobin, Arterial 10.4(L) 13.7 - 16.5 g/dL 11/08/2023 9:12 AM EDT [facility] Oxyhemoglobin, Arterial 97.6(H) 94.0 - 97.0 % 11/08/2023 9:12 AM EDT [facility] Carboxyhemoglobin , Arterial 0.2 % 11/08/2023 9:12 AM [facility] Comment: Nonsmokers: 0.5-1.5% COHB ?? Smokers: Variable ??but usually less than 10% ?? Toxic: 20-30% COHB ?? Lethal: Greater than 60% COHB Methemoglobin, Arterial 0.1 <=1.5 % 11/08/2023 9:12 AM EDT [facility] Sodium, Arterial 139 135 - 145 mmol/L 11/08/2023 9:12 AM EDT [facility] Potassium, Arterial 4.1 3.5 - 5.0 mmol/L 11/08/2023 9:12 AM EDT [facility] Chloride, Arterial 109(H) 98 - 107 mmol/L 11/08/2023 9:12 AM EDT [facility] Lactate, Arterial 0.8 0.5 - 2.2 mmol/L 11/08/2023 9:12 AM EDT [facility] Fraction of Inspired Oxygen 60 % 11/08/2023 9:12 AM EDT [facility] PF Ratio 222 Ratio 11/08/2023 9:12 AM EDT [facility] Comment:PF ratio calculated using the non-temperature corrected pO2 result. IONIZED CALCIUM, ARTERIAL 1.12(L) 1.15 - 1.33 mmol/L 11/08/2023 9:12 AM EDT [facility] Glucose, Arterial 202(H) 65 - 199 mg/dL 11/08/2023 9:12 AM EDT [facility] Comment:Glucose Concentratio n >=200 mg/dL plus symptoms is consistent with Diabetes Mellitus. Blood ARTERIAL BLOOD / Unknown 11/08/2023 9:10 AM EDT 11/08/2023 9:11 AM EDT Timi Person MD POINT OF CARE TEST ORDERABLES [facility] [place] [address] * XR Chest One View (11/08/2023 8:25 AM EDT) WORKSTATION ID [id number] DH RAD Anatomical Region Laterality Modality Chest [...] who have questions please contact the health healthcare account manager that requested your imaging first. ? Narrative [...] patients who have questions please contactthe health healthcare account manager that requested your imaging first. [facility] DX ORDERABLES * POC, GLUCOSE (11/08/2023 7:40 AM EDT) Glucometer, POC 165 65 - 199 mg/dL 11/08/2023 7:41 AM EDT [facility] Comment:Supplemental ranges: <140 mg/dL before meals <180 mg/dL all other times of the day. Blood CAPILLARY BLOOD / Unknown 11/08/2023 7:40 AM EDT 11/08/2023 7:41 AM EDT Timi Person MD POINT OF CARE TEST ORDERABLES [facility] [place] [address] * (ABNORMAL) Blood Gas, Arterial POC (11/08/2023 5:54 AM EDT) pH, Arterial 7.41 7.35 - 7.45 11/08/2023 5:55 AM EDT [facility] PCO2, Arterial 37 35 - 45 mmHg 11/08/2023 5:55 AM EDT [facility] PO2, Arterial 83(L) 85 - 104 mmHg 11/08/2023 5:55 AM EDT [facility] Bicarbonate, Arterial 22.9 20.0 - 26.0 mmol/L 11/08/2023 5:55 AM EDT [facility] Base Excess, Arterial -1.7 -3.0 - 3.0 mmol/L 11/08/2023 5:55 AM [facility] Hemoglobin, Arterial 11.2(L) 13.7 - 16.5 g/dL 11/08/2023 5:55 AM [facility] Oxyhemoglobin, Arterial 94.8 94.0 - 97.0 % 11/08/2023 5:55 AM [facility] Carboxyhemoglobin , Arterial 0.3 % 11/08/2023 5:55 AM [facility] Comment: Nonsmokers: 0.5-1.5% COHB ?? Smokers: Variable ??but usually less than 10% ?? Toxic: 20-30% COHB ?? Lethal: Greater than 60% COHB Methemoglobin, Arterial 0.3 <=1.5 % 11/08/2023 5:55 AM [facility] Sodium, Arterial 139 135 - 145 mmol/L 11/08/2023 5:55 AM [facility] Potassium, Arterial 4.2 3.5 - 5.0 mmol/L 11/08/2023 5:55 AM [facility] Chloride, Arterial 106 98 - 107 mmol/L 11/08/2023 5:55 AM [facility] Lactate, Arterial 0.8 0.5 - 2.2 mmol/L 11/08/2023 5:55 AM [facility] Fraction of Inspired Oxygen 60 % 11/08/2023 5:55 AM [facility] PF Ratio 138 Ratio 11/08/2023 5:55 AM [facility] Comment:PF ratio calculated using the non-temperature corrected pO2 result. IONIZED CALCIUM, ARTERIAL 1.19 1.15 - 1.33 mmol/L 11/08/2023 5:55 AM [facility] Glucose, Arterial 182 65 - 199 mg/dL 11/08/2023 5:55 AM [facility] Comment:Glucose Concentratio n >=200 mg/dL plus symptoms is consistent with Diabetes Mellitus. Blood ARTERIAL BLOOD / Unknown 11/08/2023 5:54 AM EDT 11/08/2023 5:55 AM EDT Timi Person MD POINT OF CARE TEST ORDERABLES [facility] [place] [address] * (ABNORMAL) Electrolytes panel (11/08/2023 5:52 AM EDT) Sodium 142 135 - 145 mMol/L 11/08/2023 6:24 AM EDT [facility] Potassium 3.4(L) 3.5 - 5.0 mMol/L 11/08/2023 6:24 AM EDT [facility] Chloride 112(H) 98 - 107 mMol/L 11/08/2023 6:24 AM EDT [facility] Carbon Dioxide 18(L) 22 - 31 mMol/L 11/08/2023 6:24 AM EDT [facility] Anion Gap 12 5 - 15 mMol/L 11/08/2023 6:24 AM EDT [facility] Blood VENOUS BLOOD SPECIMEN / Unknown IP Care Team Draw / Unknown 11/08/2023 5:52 AM EDT 11/08/2023 5:58 AM EDT Calos Lazo MD CHEMISTRY ORDERABLES [facility] [place] [address] * POC, GLUCOSE (11/08/2023 4:12 AM EDT) Glucometer, POC 158 65 - 199 mg/dL 11/08/2023 4:12 AM EDT [facility] Comment:Supplemental ranges: <140 mg/dL before meals <180 mg/dL all other times of the day. Blood CAPILLARY BLOOD / Unknown 11/08/2023 4:12 AM EDT 11/08/2023 4:12 AM EDT Timi Person MD POINT OF CARE TEST ORDERABLES [facility] [place] [address] * POC, GLUCOSE (11/08/2023 12:13 AM EDT) Glucometer, POC 191 65 - 199 mg/dL 11/08/2023 12:13 AM EDT [facility] Comment:Supplemental ranges: <140 mg/dL before meals <180 mg/dL all other times of the day. Blood CAPILLARY BLOOD / Unknown 11/08/2023 12:13 AM EDT 11/08/2023 12:13 AM EDT Timi Person MD POINT OF CARE TEST ORDERABLES Performing Organization Address City/[facility] [address]/[facility] Co de Phone Number [facility] [place] [address] * (ABNORMAL) Blood Gas, Arterial POC (11/08/2023 12:10 AM EDT) pH, Arterial 7.40 7.35 - 7.45 11/08/2023 12:11 AM EDT [facility] PCO2, Arterial 37 35 - 45 mmHg 11/08/2023 12:11 AM EDT [facility] PO2, Arterial 103 85 - 104 mmHg 11/08/2023 12:11 AM EDT [facility] [facility] Bicarbonate, Arterial 22.3 20.0 - 26.0 mmol/L 11/08/2023 12:11 AM EDT [facility] Base Excess, Arterial -2.5 -3.0 - 3.0 mmol/L 11/08/2023 12:11 AM EDT [facility] Hemoglobin, Arterial 10.4(L) 13.7 - 16.5 g/dL 11/08/2023 12:11 AM EDT [facility] Oxyhemoglobin, Arterial 96.5 94.0 - 97.0 % 11/08/2023 12:[facility] Carboxyhemoglobin , Arterial 0.3 % 11/08/2023 12:11 AM [facility] Comment: Nonsmokers: 0.5-1.5% COHB ?? Smokers: Variable ??but usually less than 10% ?? Toxic: 20-30% COHB ?? Lethal: Greater than 60% COHB Methemoglobin, Arterial 0.3 <=1.5 % 11/08/2023 12:11 [facility] Sodium, Arterial 138 135 - 145 mmol/L 11/08/2023 12:11 AM [facility] Potassium, Arterial 4.0 3.5 - 5.0 mmol/L 11/08/2023 12:11 AM [facility] Chloride, Arterial 106 98 - 107 mmol/L 11/08/2023 12:11 AM [facility] Lactate, Arterial 0.7 0.5 - 2.2 mmol/L 11/08/2023 12:11 AM [facility] Fraction of Inspired Oxygen 60 % 11/08/2023 12:11 AM [facility] PF Ratio 172 Ratio 11/08/2023 12:11 AM [facility] Comment:PF ratio calculated using the non-temperature corrected pO2 result. IONIZED CALCIUM, ARTERIAL 1.19 1.15 - 1.33 mmol/L 11/08/2023 12:11 AM [facility] Glucose, Arterial 208(H) 65 - 199 mg/dL 11/08/2023 12:11 AM EDT [facility] Comment:Glucose Concentratio n >=200 mg/dL plus symptoms is consistent with Diabetes Mellitus. Blood ARTERIAL BLOOD / Unknown 11/08/2023 12:10 AM EDT 11/08/2023 12:11 AM EDT Timi Person MD POINT OF CARE TEST ORDERABLES [facility] [place] [address] * (ABNORMAL) CBC (with Diff) (11/08/2023 12:09 AM EDT) White Blood Cell 13.91(H) 4.00 - 9.50 x10(3)/mc L 11/08/2023 12:27 AM [facility] Red Blood Cell 4.14(L) 4.58 - 5.54 x10(6)/mc L 11/08/2023 12:27 AM [facility] Hemoglobin 9.0(L) 13.7 - 16.5 g/dL 11/08/2023 12:27 AM [facility] Hematocrit 28.8(L) 40.5 - 48.5 % 11/08/2023 12:27 AM [facility] Mean Cell Volume 69.6(L) 82.9 - 93.1 fL 11/08/2023 12:27 AM [facility] Mean Cell Hemoglobin 21.7(L) 27.5 - 32.1 pg 11/08/2023 12:27 AM [facility] Mean Cell Hemoglobin Concentration 31.3(L) 32.0 - 35.7 g/dL 11/08/2023 12:27 AM [facility] Platelet 324 145 - 357 x10(3)/mc L 11/08/2023 12:27 AM [facility] Mean Platelet Volume 10.1 7.6 - 12.9 fL 11/08/2023 12:27 AM [facility] RDW Standard Deviation 50.7(H) 36.0 - 45.0 fL 11/08/2023 12:27 AM [facility] RDW coefficient of variation 20.7(H) 11.4 - 13.8 % 11/08/2023 12:27 AM [facility] NRBC% auto 0.2 % 11/08/2023 12:27 AM [facility] NRBC Absolute 0.03(H) 0.00 - 0.00 x10(3)/mc L 11/08/2023 12:27 AM EDT [facility] Neutrophil % 80.7 % 11/08/2023 12:27 AM [facility] Neutrophil Absolute (ANC) - Automated 11.23(H) 1.70 - 6.10 x10(3)/mc L 11/08/2023 12:27 AM EDT [facility] Lymph % 9.2 % 11/08/2023 12:27 AM EDT [facility] Lymph Absolute 1.28 0.90 - 3.20 x10(3)/mc L 11/08/2023 12:27 AM EDT [facility] Monocyte % 4.0 % 11/08/2023 12:27 AM [facility] Monocyte Absolute 0.56 0.30 - 0.90 x10(3)/mc L 11/08/2023 12:27 AM EDT [facility] Eos % 3.2 % 11/08/2023 12:27 AM EDT [facility] Eos Absolute 0.44(H) 0.00 - 0.40 x10(3)/mc L 11/08/2023 12:27 AM EDT [facility] Basophil % 0.4 % 11/08/2023 12:27 AM EDT [facility] Baso Absolute 0.05 0.00 - 0.10 x10(3)/mc L 11/08/2023 12:27 AM EDT [facility] Immature Gran % 2.5 % 12:27 AM EDT [facility] Immature Gran Absolute 0.35(H) 0.00 - 0.04 x10(3)/mc L 11/08/2023 12:27 AM [facility] Blood VENOUS BLOOD SPECIMEN / Unknown IP Care Team Draw / Unknown 11/08/2023 12:09 AM EDT 11/08/2023 12:17 AM EDT Timi Person MD HEMATOLOGY ORDERABL ES [facility] [place] [address] * (ABNORMAL) Basic Metabolic Panel (11/08/2023 12:09 AM EDT) Glucose 199 65 - 199 mg/dL 11/08/2023 1:10 AM EDT [facility] Comment:Glucose Concentratio n >=200 mg/dL plus symptoms is consistent with Diabetes Mellitus. Blood Urea Nitrogen 65(H) 10 - 20 mg/dL 11/08/2023 1:10 AM EDT [facility] Creatinine 3.50(H) 0.80 - 1.50 mg/dL 11/08/2023 1:10 AM EDT [facility] Sodium 142 135 - 145 mMol/L 11/08/2023 1:10 AM EDT [facility] Potassium 3.7 3.5 - 5.0 mMol/L 11/08/2023 1:10 AM EDT [facility] Chloride 108(H) 98 - 107 mMol/L 11/08/2023 1:[facility] Carbon Dioxide 22 22 - 31 mMol/L 11/08/2023 1:10 AM [facility] Anion Gap 12 5 - 15 mMol/L 11/08/2023 1:10 AM EDT [facility] Calcium 8.2(L) 8.5 - 10.5 mg/dL 11/08/2023 1:10 AM EDT [facility] Est Glomerular Filtration Rate - Male 21 mL/min/1. 73 m?? 11/08/2023 1:10 AM [facility] Comment: This patient's estimated GFR [...] EDT Timi Person MD CHEMISTRY ORDERABLE S [facility] [place] [address] * Phosphorus (11/08/2023 12:09 AM EDT) Phosphorus 4.4 2.5 - 4.5 mg/dL 11/08/2023 12:47 AM EDT [facility] Blood VENOUS BLOOD SPECIMEN / Unknown IP Care Team Draw / Unknown 11/08/2023 12:09 AM EDT 11/08/2023 12:17 AM EDT Timi Person MD CHEMISTRY ORDERABLE S Performing Organization Address City/[facility] [address]/ZIP Co de Phone Number [facility] [place] [address] * Magnesium (11/08/2023 12:09 AM EDT) Magnesium 0.88 0.69 - 1.07 mMol/L 11/08/2023 12:47 AM EDT [facility] Blood VENOUS BLOOD SPECIMEN / Unknown IP Care Team Draw / Unknown 11/08/2023 12:09 AM EDT 11/08/2023 12:17 AM EDT Timi Person MD CHEMISTRY ORDERABLE S [facility] [place] [address] * Prepare RBC (11/07/2023 10:03 PM EDT) Status Information Transfused [facility] Product Identification RBC [facility] Unit Number [id number] [facility] Product Code C7806M83 [facility] Unit Blood Type OPOS [facility] Specimen Expiration Date [id number] [facility] Volulme 350 [facility] Issue Date / Time [id number] [facility] Blood 11/07/2023 7:5 1 AM EDT Aby Williamson APRN BLOOD BANK PRODUCT ORDERABLES [facility] [place] [place] [address] * (ABNORMAL) Blood Gas, Arterial POC (11/07/2023 7:57 PM EDT) pH, Arterial 7.41 7.35 - 7.45 11/07/2023 7:58 PM EDT [facility] PCO2, Arterial 37 35 - 45 mmHg 11/07/2023 7:58 PM EDT [facility] PO2, Arterial 112(H) 85 - 104 mmHg 11/07/2023 7:58 PM EDT [facility] Bicarbonate, Arterial 23.0 20.0 - 26.0 mmol/L 11/07/2023 7:58 PM EDT [facility] Base Excess, Arterial -1.6 -3.0 - 3.0 mmol/L 11/07/2023 7:58 PM EDT [facility] Hemoglobin, Arterial 10.2(L) 13.7 - 16.5 g/dL 11/07/2023 7:58 PM EDT [facility] Oxyhemoglobin, Arterial 97.0 94.0 - 97.0 % 11/07/2023 7:58 PM EDT [facility] Carboxyhemoglobin , Arterial 0.3 % 11/07/2023 7:58 PM EDT [facility] Comment: Nonsmokers: 0.5-1.5% COHB ?? Smokers: Variable ??but usually less than 10% ?? Toxic: 20-30% COHB ?? Lethal: Greater than 60% COHB Methemoglobin, Arterial 0.3 <=1.5 % 11/07/2023 7:58 PM EDT [facility] Sodium, Arterial 141 135 - 145 mmol/L 11/07/2023 7:58 PM EDT [facility] Potassium, Arterial 4.0 3.5 - 5.0 mmol/L 11/07/2023 7:58 PM EDT [facility] Chloride, Arterial 108(H) 98 - 107 mmol/L 11/07/2023 7:58 PM EDT [facility] Lactate, Arterial 0.8 0.5 - 2.2 mmol/L 11/07/2023 7:58 PM EDT [facility] Fraction of Inspired Oxygen 60 % 11/07/2023 7:58 PM EDT [facility] PF Ratio 187 Ratio 11/07/2023 7:58 PM EDT [facility] Comment:PF ratio calculated using the non-temperature corrected pO2 result. IONIZED CALCIUM, ARTERIAL 1.17 1.15 - 1.33 mmol/L 11/07/2023 7:58 PM EDT [facility] Glucose, Arterial 187 65 - 199 mg/dL 11/07/2023 7:58 PM EDT [facility] Comment:Glucose Concentratio n >=200 mg/dL plus symptoms is consistent with Diabetes Mellitus. Blood ARTERIAL BLOOD / Unknown 11/07/2023 7:57 PM EDT 11/07/2023 7:58 PM EDT Timi Person MD POINT OF CARE TEST ORDERABLES [facility] [place] [address] * (ABNORMAL) Blood Gas, Arterial POC (11/07/2023 5:49 PM EDT) pH, Arterial 7.42 7.35 - 7.45 11/07/2023 5:50 PM EDT [facility] PCO2, Arterial 36 35 - 45 mmHg 11/07/2023 5:50 PM [facility] PO2, Arterial 135(H) 85 - 104 mmHg 11/07/2023 5:50 PM [facility] Bicarbonate, Arterial 22.8 20.0 - 26.0 mmol/L 11/07/2023 5:50 PM [facility] Base Excess, Arterial -1.7 -3.0 - 3.0 mmol/L 11/07/2023 5:50 PM [facility] Hemoglobin, Arterial 10.3(L) 13.7 - 16.5 g/dL 11/07/2023 5:50 PM [facility] Oxyhemoglobin, Arterial 97.8(H) 94.0 - 97.0 % 11/07/2023 5:50 PM [facility] Carboxyhemoglobin , Arterial 0.0 % 11/07/2023 5:50 PM [facility] Comment: Nonsmokers: 0.5-1.5% COHB ?? Smokers: Variable ??but usually less than 10% ?? Toxic: 20-30% COHB ?? Lethal: Greater than 60% COHB Methemoglobin, Arterial 0.3 <=1.5 % 11/07/2023 5:50 PM [facility] Sodium, Arterial 142 135 - 145 mmol/L 11/07/2023 5:50 PM [facility] Potassium, Arterial 3.9 3.5 - 5.0 mmol/L 11/07/2023 5:50 PM [facility] Chloride, Arterial 107 98 - 107 mmol/L 11/07/2023 5:50 PM [facility] Lactate, Arterial 0.9 0.5 - 2.2 mmol/L 11/07/2023 5:50 PM [facility] Fraction of Inspired Oxygen 60 % 11/07/2023 5:50 PM [facility] PF Ratio 225 Ratio 11/07/2023 5:50 PM [facility] Comment:PF ratio calculated using the non-temperature corrected pO2 result. IONIZED CALCIUM, ARTERIAL 1.17 1.15 - 1.33 mmol/L 11/07/2023 5:50 PM EDT [facility] Glucose, Arterial 159 65 - 199 mg/dL 11/07/2023 5:50 PM EDT [facility] Comment:Glucose Concentratio n >=200 mg/dL plus symptoms is consistent with Diabetes Mellitus. Blood ARTERIAL BLOOD / Unknown 11/07/2023 5:49 PM EDT 11/07/2023 5:50 PM EDT Timi Pesron MD POINT OF CARE TEST ORDERABLES Performing Organization Address City/State/[facility] Co de Phone Number [facility] [place] [address] * (ABNORMAL) Blood Gas, Arterial POC (11/07/2023 5:45 PM EDT) pH, Arterial 7.40 7.35 - 7.45 11/07/2023 5:46 PM EDT [facility] PCO2, Arterial 37 35 - 45 mmHg 11/07/2023 5:46 PM EDT [facility] PO2, Arterial 11/07/2023 5:46 PM EDT [facility] Comment:QUES Bicarbonate, Arterial 22.6 20.0 - 26.0 mmol/L 11/07/2023 5:46 PM EDT [facility] Base Excess, Arterial -2.1 -3.0 - 3.0 mmol/L 11/07/2023 5:46 PM EDT [facility] Hemoglobin, Arterial 10.3(L) 13.7 - 16.5 g/dL 11/07/2023 5:46 PM EDT [facility] Oxyhemoglobin, Arterial 97.2(H) 94.0 - 97.0 % 11/07/2023 5:46 PM EDT [facility] Carboxyhemoglobin , Arterial 0.3 % 11/07/2023 5:46 PM EDT [facility] Comment: Nonsmokers: 0.5-1.5% COHB ?? Smokers: Variable ??but usually less than 10% ?? Toxic: 20-30% COHB ?? Lethal: Greater than 60% COHB Methemoglobin, Arterial 0.3 <=1.5 % 11/07/2023 5:46 PM EDT [facility] Sodium, Arterial 140 135 - 145 mmol/L 11/07/2023 5:46 PM EDT [facility] Potassium, Arterial 3.9 3.5 - 5.0 mmol/L 11/07/2023 5:46 PM EDT [facility] Chloride, Arterial 108(H) 98 - 107 mmol/L 11/07/2023 5:46 PM EDT [facility] Lactate, Arterial 0.9 0.5 - 2.2 mmol/L 11/07/2023 5:46 PM EDT [facility] Fraction of Inspired Oxygen 60 % 11/07/2023 5:46 PM EDT [facility] IONIZED CALCIUM, ARTERIAL 1.17 1.15 - 1.33 mmol/L 11/07/2023 5:46 PM EDT [facility] Glucose, Arterial 158 65 - 199 mg/dL 11/07/2023 5:46 PM EDT [facility] Comment:Glucose Concentratio n >=200 mg/dL plus symptoms is consistent with Diabetes Mellitus. Blood ARTERIAL BLOOD / Unknown 11/07/2023 5:45 PM EDT 11/07/2023 5:46 PM EDT Timi Person MD POINT OF CARE TEST ORDERABLES [facility] [place] [address] * (ABNORMAL) Electrolytes panel (11/07/2023 5:43 PM EDT) Sodium 143 135 - 145 mMol/L 11/07/2023 6:25 PM EDT [facility] Potassium 4.1 3.5 - 5.0 mMol/L 11/07/2023 6:25 PM EDT [facility] Chloride 105 98 - 107 mMol/L 11/07/2023 6:25 PM EDT [facility] Carbon Dioxide 22 22 - 31 mMol/L 11/07/2023 6:25 PM EDT [facility] Anion Gap 16(H) 5 - 15 mMol/L 11/07/2023 6:25 PM EDT [facility] Blood ARTERIAL BLOOD / Unknown IP Care Team Draw / Unknown 11/07/2023 5:43 PM EDT 11/07/2023 5:50 PM EDT Calos Lazo MD CHEMISTRY ORDERABLES Performing Organization Address City/[facility] [address]/ZIP Co de Phone Number [facility] [place] [address] * (ABNORMAL) BUN (11/07/2023 5:43 PM EDT) Blood Urea Nitrogen 83(H) 10 - 20 mg/dL 11/07/2023 6:25 PM EDT [facility] Blood ARTERIAL BLOOD / Unknown IP Care Team Draw / Unknown 11/07/2023 5:43 PM EDT 11/07/2023 5:50 PM EDT Calos Lazo MD CHEMISTRY ORDERABLES Performing Organization Address City/[facility] [address]/ZIP Co de Phone Number [facility] [place] [address] * (ABNORMAL) Creatinine (11/07/2023 5:43 PM EDT) Creatinine 4.71(H) 0.80 - 1.50 mg/dL 11/07/2023 6:42 PM EDT [facility] Est Glomerular Filtration Rate - Male 15 mL/min/1. 73 m?? 11/07/2023 6:42 PM EDT [facility] Comment: This patient's estimated [...] Lazo MD CHEMISTRY ORDERABLES Performing Organization Address [facility] [address]/[facility] Co de Phone Number [facility] [place] [address] * Magnesium (11/07/2023 5:43 PM EDT) Magnesium 1.02 0.69 - 1.07 mMol/L 11/07/2023 6:25 PM EDT [facility] Blood ARTERIAL BLOOD / Unknown IP Care Team Draw / Unknown 11/07/2023 5:43 PM EDT 11/07/2023 5:50 PM EDT Calos Lazo MD CHEMISTRY ORDERABLES Performing Organization Address [facility] [address]/[facility] Co de Phone Number [facility] [place] [address] * (ABNORMAL) Phosphorus (11/07/2023 5:43 PM EDT) Phosphorus 6.6(H) 2.5 - 4.5 mg/dL 11/07/2023 6:25 PM EDT [facility] Blood ARTERIAL BLOOD / Unknown IP Care Team Draw / Unknown 11/07/2023 5:43 PM EDT 11/07/2023 5:50 PM EDT Calos Lazo MD CHEMISTRY ORDERABLES Performing Organization Address City/[facility] [address]/[facility] Co de Phone Number [facility] [place] [address] * POC, GLUCOSE (11/07/2023 5:13 PM EDT) Glucometer, POC 153 65 - 199 mg/dL 11/07/2023 5:14 PM EDT [facility] Comment:Supplemental ranges: <140 mg/dL before meals <180 mg/dL all other times of the day. Blood CAPILLARY BLOOD / Unknown 11/07/2023 5:13 PM EDT 11/07/2023 5:14 PM EDT Timi Person MD POINT OF CARE TEST ORDERABLES Performing Organization Address City/[facility] [address]/ZIP Co de Phone Number [facility] [place] [address] * POC, GLUCOSE (11/07/2023 3:24 PM EDT) Glucometer, POC 158 65 - 199 mg/dL 11/07/2023 3:24 PM EDT [facility] Comment:Supplemental ranges: <140 mg/dL before meals <180 mg/dL all other times of the day. Blood CAPILLARY BLOOD / Unknown 11/07/2023 3:24 PM EDT 11/07/2023 3:25 PM EDT Timi Person MD POINT OF CARE TEST ORDERABLES [facility] [place] [address] * Transfuse RBC (11/07/2023 1:49 PM EDT) Aby Williamson APRN NURSING TREATMENT ORDERABLES - BLOOD ADMIN * Transfuse RBC (11/07/2023 1:49 PM EDT) Aby Williamson APRN NURSING TREATMENT ORDERABLES - BLOOD ADMIN * (ABNORMAL) Blood Gas, Arterial POC (11/07/2023 1:32 PM EDT) pH, Arterial 7.38 7.35 - 7.45 11/07/2023 1:33 PM [facility] PCO2, Arterial 37 35 - 45 mmHg 11/07/2023 1:33 PM [facility] PO2, Arterial 84(L) 85 - 104 mmHg 11/07/2023 1:33 PM [facility] Bicarbonate, Arterial 21.4 20.0 - 26.0 mmol/L 11/07/2023 1:33 PM [facility] Base Excess, Arterial -3.8(L) -3.0 - 3.0 mmol/L 11/07/2023 1:33 PM [facility] Hemoglobin, Arterial 10.5(L) 13.7 - 16.5 g/dL 11/07/2023 1:33 PM [facility] Oxyhemoglobin, Arterial 94.5 94.0 - 97.0 % 11/07/2023 1:33 PM [facility] Carboxyhemoglobin , Arterial 0.3 % 11/07/2023 1:33 PM [facility] Comment: Nonsmokers: 0.5-1.5% COHB ?? Smokers: Variable ??but usually less than 10% ?? Toxic: 20-30% COHB ?? Lethal: Greater than 60% COHB Methemoglobin, Arterial 0.3 <=1.5 % 11/07/2023 1:33 PM [facility] Sodium, Arterial 143 135 - 145 mmol/L 11/07/2023 1:33 PM [facility] Potassium, Arterial 3.8 3.5 - 5.0 mmol/L 11/07/2023 1:33 PM [facility] Chloride, Arterial 109(H) 98 - 107 mmol/L 11/07/2023 1:33 PM [facility] Lactate, Arterial 1.1 0.5 - 2.2 mmol/L 11/07/2023 1:33 PM [facility] Fraction of Inspired Oxygen 70 % 11/07/2023 1:33 PM [facility] PF Ratio 120 Ratio 11/07/2023 1:33 PM EDT [facility] Comment:PF ratio calculated using the non-temperature corrected pO2 result. IONIZED CALCIUM, ARTERIAL 1.16 1.15 - 1.33 mmol/L 11/07/2023 1:33 PM EDT [facility] Glucose, Arterial 148 65 - 199 mg/dL 11/07/2023 1:33 PM EDT [facility] Comment:Glucose Concentratio n >=200 mg/dL plus symptoms is consistent with Diabetes Mellitus. Blood ARTERIAL BLOOD / Unknown 11/07/2023 1:32 PM EDT 11/07/2023 1:33 PM EDT Timi Person MD POINT OF CARE TEST ORDERABLES [facility] [place] [address] * (ABNORMAL) Blood Gas, Arterial POC (11/07/2023 11:49 AM EDT) pH, Arterial 7.37 7.35 - 7.45 11/07/2023 11:50 AM EDT [facility] PCO2, Arterial 40 35 - 45 mmHg 11/07/2023 11:50 AM EDT [facility] PO2, Arterial 75(L) 85 - 104 mmHg 11/07/2023 11:50 AM EDT [facility] Bicarbonate, Arterial 22.2 20.0 - 26.0 mmol/L 11/07/2023 11:50 AM EDT [facility] Base Excess, Arterial -3.2(L) -3.0 - 3.0 mmol/L 11/07/2023 11:50 AM EDT [facility] Hemoglobin, Arterial 10.1(L) 13.7 - 16.5 g/dL 11/07/2023 11:50 AM EDT [facility] Oxyhemoglobin, Arterial 93.4(L) 94.0 - 97.0 % 11/07/2023 11:50 AM EDT [facility] Carboxyhemoglobin , Arterial 0.3 % 11/07/2023 11:50 AM EDT [facility] Comment: Nonsmokers: 0.5-1.5% COHB ?? Smokers: Variable ??but usually less than 10% ?? Toxic: 20-30% COHB ?? Lethal: Greater than 60% COHB Methemoglobin, Arterial 0.3 <=1.5 % 11/07/2023 11:50 AM EDT [facility] Sodium, Arterial 142 135 - 145 mmol/L 11/07/2023 11:50 AM EDT [facility] Potassium, Arterial 4.3 3.5 - 5.0 mmol/L 11/07/2023 11:[facility] Chloride, Arterial 107 98 - 107 mmol/L 11/07/2023 11:50 AM [facility] Lactate, Arterial 1.1 0.5 - 2.2 mmol/L 11/07/2023 11:50 AM [facility] Fraction of Inspired Oxygen 50 % 11/07/2023 11:50 AM [facility] PF Ratio 150 Ratio 11/07/2023 11:50 AM [facility] Comment:PF ratio calculated using the non-temperature corrected pO2 result. IONIZED CALCIUM, ARTERIAL 1.17 1.15 - 1.33 mmol/L 11/07/2023 11:50 AM [facility] Glucose, Arterial 175 65 - 199 mg/dL 11/07/2023 11:50 AM T [facility] Comment:Glucose Concentratio n >=200 mg/dL plus symptoms is consistent with Diabetes Mellitus. Blood ARTERIAL BLOOD / Unknown 11/07/2023 11:49 AM EDT 11/07/2023 11:50 AM EDT Timi Person MD POINT OF CARE TEST ORDERABLES [facility] [place] [address] * (ABNORMAL) Phosphorus (11/07/2023 11:48 AM EDT) Phosphorus 9.6(HHH) 2.5 - 4.5 mg/dL 11/07/2023 1:16 PM EDT [facility] Blood ARTERIAL BLOOD / Unknown IP Care Team Draw / Unknown 11/07/2023 11:48 AM EDT 11/07/2023 12:07 PM EDT Calos Lazo MD CHEMISTRY ORDERABLES Performing Organization Address City/[facility] [address]/[facility] Co de Phone Number [facility] [place] [address] * (ABNORMAL) Magnesium (11/07/2023 11:48 AM EDT) Magnesium 1.19(H) 0.69 - 1.07 mMol/L 11/07/2023 1:06 PM EDT [facility] Blood ARTERIAL BLOOD / Unknown IP Care Team Draw / Unknown 11/07/2023 11:48 AM EDT 11/07/2023 12:07 PM EDT Calos Lazo MD CHEMISTRY ORDERABLES Performing Organization Address [facility] [facility] [address]/[facility] Co de Phone Number [facility] [place] [address] * (ABNORMAL) Creatinine (11/07/2023 11:48 AM EDT) Creatinine 6.24(H) 0.80 - 1.50 mg/dL 11/07/2023 1:06 PM EDT [facility] Est Glomerular Filtration Rate - Male 11 mL/min/1. 73 m?? 11/07/2023 1:06 PM EDT [facility] Comment: This patient's estimated [...] Lazo MD CHEMISTRY ORDERABLES Performing Organization Address City/[facility] [address]/ZIP Co de Phone Number [facility] [place] [address] * (ABNORMAL) BUN (11/07/2023 11:48 AM EDT) Blood Urea Nitrogen 101(H) 10 - 20 mg/dL 11/07/2023 1:06 PM EDT [facility] Blood ARTERIAL BLOOD / Unknown IP Care Team Draw / Unknown 11/07/2023 11:48 AM EDT 11/07/2023 12:07 PM EDT Calos Lazo MD CHEMISTRY ORDERABLES Performing Organization Address City/[facility] [address]/ZIP Co de Phone Number [facility] [place] [address] * (ABNORMAL) Electrolytes panel (11/07/2023 11:48 AM EDT) Sodium 146(H) 135 - 145 mMol/L 11/07/2023 1:06 PM EDT [facility] Potassium 4.3 3.5 - 5.0 mMol/L 11/07/2023 1:06 PM EDT [facility] Chloride 105 98 - 107 mMol/L 11/07/2023 1:06 PM EDT [facility] Carbon Dioxide 21(L) 22 - 31 mMol/L 11/07/2023 1:06 PM EDT [facility] Anion Gap 20(H) 5 - 15 mMol/L 11/07/2023 1:06 PM EDT [facility] Blood ARTERIAL BLOOD / Unknown IP Care Team Draw / Unknown 11/07/2023 11:48 AM EDT 11/07/2023 12:07 PM EDT Calos Lazo MD CHEMISTRY ORDERABLES [facility] [place] [address] * POC, GLUCOSE (11/07/2023 8:49 AM EDT) [facility] Glucometer, POC 158 65 - 199 mg/dL 11/07/2023 8:58 AM EDT [facility] Comment:Supplemental ranges: <140 mg/dL before meals <180 mg/dL all other times of the day. Blood CAPILLARY BLOOD / Unknown 11/07/2023 8:49 AM EDT 11/07/2023 8:58 AM EDT Timi Person MD POINT OF CARE TEST ORDERABLES [facility] [place] [address] * ABORH RECHECK (PATIENT HISTORY FOUND) (11/07/2023 8:17 AM EDT) [facility] ABORH Recheck Progress Complete 11/07/2023 10:01 AM EDT [facility] Blood ARTERIAL BLOOD / Unknown IP Care Team Draw / Unknown 11/07/2023 8:17 AM EDT 11/07/2023 8:21 AM EDT Aby Williamson APRN [facility] LAB ORD ERABLES [facility] [place] [place] [address] * Type and screen ([facility]/JEN) (11/07/2023 8:17 AM EDT) ABORH Type O POSITIVE 11/07/2023 9:26 AM EDT [facility] PATIENT HISTORY Found 11/07/2023 9:26 AM EDT [facility] Expires at [id number] on: 11/07/2023 9:26 AM EDT [facility] ANTIBODY SCREEN AUTOMATED Negative 11/07/2023 9:26 AM EDT [facility] T&S only valid at [facility] 11/07/2023 9:26 AM EDT [facility] Blood ARTERIAL BLOOD / Unknown IP Care Team Draw / Unknown 11/07/2023 8:17 AM EDT 11/07/2023 8:21 AM EDT Narrative [facility] - 11/07/2023 9:26 AM EDT This Type and Screen result is only valid at the [facility] Aby Williamson APRN BLOOD BANK LAB ORD ERABLES [facility] [place] [place] [address] * (ABNORMAL) Blood Gas, Arterial POC (11/07/2023 8:05 AM EDT) pH, Arterial 7.37 7.35 - 7.45 11/07/2023 8:06 AM EDT [facility] PCO2, Arterial 40 35 - 45 mmHg 11/07/2023 8:06 AM [facility] PO2, Arterial 80(L) 85 - 104 mmHg 11/07/2023 8:06 AM [facility] Bicarbonate, Arterial 22.4 20.0 - 26.0 mmol/L 11/07/2023 8:06 AM [facility] Base Excess, Arterial -2.8 -3.0 - 3.0 mmol/L 11/07/2023 8:06 AM [facility] Hemoglobin, Arterial 8.4(L) 13.7 - 16.5 g/dL 11/07/2023 8:06 AM [facility] Oxyhemoglobin, Arterial 93.3(L) 94.0 - 97.0 % 11/07/2023 8:06 AM [facility] Carboxyhemoglobin , Arterial 0.3 % 11/07/2023 8:06 AM EDT [facility] Comment: Nonsmokers: 0.5-1.5% COHB ?? Smokers: Variable ??but usually less than 10% ?? Toxic: 20-30% COHB ?? Lethal: Greater than 60% COHB Methemoglobin, Arterial 0.3 <=1.5 % 11/07/2023 8:06 AM EDT [facility] Sodium, Arterial 141 135 - 145 mmol/L 11/07/2023 8:06 AM EDT [facility] Potassium, Arterial 4.5 3.5 - 5.0 mmol/L 11/07/2023 8:06 AM EDT [facility] Chloride, Arterial 107 98 - 107 mmol/L 11/07/2023 8:06 AM EDT [facility] Lactate, Arterial 1.2 0.5 - 2.2 mmol/L 11/07/2023 8:06 AM EDT [facility] Fraction of Inspired Oxygen 50 % 11/07/2023 8:06 AM EDT [facility] PF Ratio 160 Ratio 11/07/2023 8:06 AM [facility] Comment:PF ratio calculated using the non-temperature corrected pO2 result. IONIZED CALCIUM, ARTERIAL 1.14(L) 1.15 - 1.33 mmol/L 11/07/2023 8:06 AM EDT [facility] Glucose, Arterial 169 65 - 199 mg/dL 11/07/2023 8:06 AM EDT [facility] Comment:Glucose Concentratio n >=200 mg/dL plus symptoms is consistent with Diabetes Mellitus. Blood ARTERIAL BLOOD / Unknown 11/07/2023 8:05 AM EDT 11/07/2023 8:06 AM EDT Timi Person MD POINT OF CARE TEST ORDERABLES [facility] [place] [address] * Potassium (11/07/2023 5:14 AM EDT) Pathologist [facility] Potassium 3.6 3.5 - 5.0 mMol/L 11/07/2023 5:58 AM EDT [facility] Blood VENOUS BLOOD SPECIMEN / Unknown IP Care Team Draw / Unknown 11/07/2023 5:14 AM EDT 11/07/2023 5:22 AM EDT Timi Person MD CHEMISTRY ORDERABLE S [facility] [place] [address] * (ABNORMAL) Blood Gas, Arterial POC (11/07/2023 4:07 AM EDT) [facility] pH, Arterial 7.38 7.35 - 7.45 11/07/2023 4:08 AM [facility] PCO2, Arterial 37 35 - 45 mmHg 11/07/2023 4:08 AM [facility] PO2, Arterial 84(L) 85 - 104 mmHg 11/07/2023 4:08 AM [facility] Bicarbonate, Arterial 21.8 20.0 - 26.0 mmol/L 11/07/2023 4:08 AM [facility] Base Excess, Arterial -3.3(L) -3.0 - 3.0 mmol/L 11/07/2023 4:08 AM [facility] Hemoglobin, Arterial 8.7(L) 13.7 - 16.5 g/dL 11/07/2023 4:08 AM [facility] Oxyhemoglobin, Arterial 94.4 94.0 - 97.0 % 11/07/2023 4:08 AM [facility] Carboxyhemoglobin , Arterial 0.3 % 11/07/2023 4:08 AM [facility] Comment: Nonsmokers: 0.5-1.5% COHB ?? Smokers: Variable ??but usually less than 10% ?? Toxic: 20-30% COHB ?? Lethal: Greater than 60% COHB Methemoglobin, Arterial 0.3 <=1.5 % 11/07/2023 4:08 AM EDT [facility] Sodium, Arterial 142 135 - 145 mmol/L 11/07/2023 4:08 AM EDT [facility] Potassium, Arterial 4.0 3.5 - 5.0 mmol/L 11/07/2023 4:08 AM EDT [facility] Chloride, Arterial 107 98 - 107 mmol/L 11/07/2023 4:08 AM EDT [facility] Lactate, Arterial 1.2 0.5 - 2.2 mmol/L 11/07/2023 4:08 AM [facility] Fraction of Inspired Oxygen 50 % 11/07/2023 4:08 AM [facility] PF Ratio 168 Ratio 11/07/2023 4:08 AM [facility] Comment:PF ratio calculated using the non-temperature corrected pO2 result. IONIZED CALCIUM, ARTERIAL 1.11(L) 1.15 - 1.33 mmol/L 11/07/2023 4:08 AM EDT [facility] Glucose, Arterial 146 65 - 199 mg/dL 11/07/2023 4:08 AM [facility] Comment:Glucose Concentratio n >=200 mg/dL plus symptoms is consistent with Diabetes Mellitus. Blood ARTERIAL BLOOD / Unknown 11/07/2023 4:07 AM EDT 11/07/2023 4:08 AM EDT Timi Person MD POINT OF CARE TEST ORDERABLES [facility] [place] [address] * (ABNORMAL) Blood Gas, Arterial POC (11/07/2023 12:17 AM EDT) pH, Arterial 7.42 7.35 - 7.45 11/07/2023 12:18 AM EDT [facility] PCO2, Arterial 33(L) 35 - 45 mmHg 11/07/2023 12:18 AM [facility] PO2, Arterial 78(L) 85 - 104 mmHg 11/07/2023 12:18 AM [facility] Bicarbonate, Arterial 21.3 20.0 - 26.0 mmol/L 11/07/2023 12:18 AM [facility] Base Excess, Arterial -3.2(L) -3.0 - 3.0 mmol/L 11/07/2023 12:18 AM [facility] Hemoglobin, Arterial 8.8(L) 13.7 - 16.5 g/dL 11/07/2023 12:18 AM [facility] Oxyhemoglobin, Arterial 93.9(L) 94.0 - 97.0 % 11/07/2023 12:18 AM [facility] Carboxyhemoglobin , Arterial 0.2 % 11/07/2023 12:18 AM [facility] Comment: Nonsmokers: 0.5-1.5% COHB ?? Smokers: Variable ??but usually less than 10% ?? Toxic: 20-30% COHB ?? Lethal: Greater than 60% COHB Methemoglobin, Arterial 0.3 <=1.5 % 11/07/2023 12:18 AM [facility] Sodium, Arterial 141 135 - 145 mmol/L 11/07/2023 12:18 AM [facility] Potassium, Arterial 3.5 3.5 - 5.0 mmol/L 11/07/2023 12:18 AM [facility] Chloride, Arterial 106 98 - 107 mmol/L 11/07/2023 12:18 AM [facility] Lactate, Arterial 1.2 0.5 - 2.2 mmol/L 11/07/2023 12:18 AM [facility] Fraction of Inspired Oxygen 50 % 11/07/2023 12:18 AM [facility] PF Ratio 156 Ratio 11/07/2023 12:18 AM [facility] Comment:PF ratio calculated using the non-temperature corrected pO2 result. IONIZED CALCIUM, ARTERIAL 1.11(L) 1.15 - 1.33 mmol/L 11/07/2023 12:18 AM EDT [facility] Glucose, Arterial 153 65 - 199 mg/dL 11/07/2023 12:18 AM EDT [facility] Comment:Glucose Concentratio n >=200 mg/dL plus symptoms is consistent with Diabetes Mellitus. Blood ARTERIAL BLOOD / Unknown 11/07/2023 12:17 AM EDT 11/07/2023 12:18 AM EDT Timi Person MD POINT OF CARE TEST ORDERABLES Performing Organization Address City/[facility] [address]/[place] [address] * (ABNORMAL) Scan, Peripheral Blood (11/07/2023 12:16 AM EDT) RBC Morphology Abnormal 11/07/2023 1:18 AM EDT [facility] Platelet Estimate Increased(A) Normal 11/06 1:18 AM EDT [facility] Microcyte 6-10 /HPF 11/07/2023 1:18 AM EDT [facility] Hypochromasia Slight 11/07/2023 1:18 AM EDT [facility] Ovalocytes 1-5 /HPF 11/07/2023 1:18 AM EDT [facility] Target Cell 1-5 /HPF 11/07/2023 1:18 AM EDT [facility] [place] cells 6-10 /HPF 11/07/2023 1:18 AM EDT [facility] Blood VENOUS BLOOD SPECIMEN / Unknown IP Care Team Draw / Unknown 11/07/2023 12:16 AM EDT 11/07/2023 12:26 AM EDT Timi Person MD HEMATOLOGY ORDERABL ES [facility] [place] [address] * (ABNORMAL) CBC (with Diff) (11/07/2023 12:16 AM EDT) White Blood Cell 12.47(H) 4.00 - 9.50 x10(3)/mc L 11/07/2023 1:18 AM [facility] Red Blood Cell 3.73(L) 4.58 - 5.54 x10(6)/mc L 11/07/2023 1:18 AM [facility] Hemoglobin 7.9(L) 13.7 - 16.5 g/dL 11/07/2023 1:18 AM [facility] Hematocrit 25.0(L) 40.5 - 48.5 % 11/07/2023 1:18 AM [facility] Mean Cell Volume 67.0(L) 82.9 - 93.1 fL 11/07/2023 1:18 AM [facility] Mean Cell Hemoglobin 21.2(L) 27.5 - 32.1 pg 11/07/2023 1:18 AM [facility] Mean Cell Hemoglobin Concentration 31.6(L) 32.0 - 35.7 g/dL 11/07/2023 1:18 AM [facility] Platelet 361(H) 145 - 357 x10(3)/mc L 11/07/2023 1:18 AM [facility] Mean Platelet Volume 10.6 7.6 - 12.9 fL 11/07/2023 1:18 AM [facility] RDW Standard Deviation 44.9 36.0 - 45.0 fL 11/07/2023 1:18 AM [facility] RDW coefficient of variation 19.1(H) 11.4 - 13.8 % 11/07/2023 1:18 AM [facility] NRBC% auto 0.4 % 11/07/2023 1:18 AM [facility] NRBC Absolute 0.05(H) 0.00 - 0.00 x10(3)/mc L 11/07/2023 1:18 AM [facility] Neutrophil % 75.9 % 11/07/2023 1:18 AM [facility] Comment:This is an appended report. These results have been appended to a previously preliminary verified report. Neutrophil Absolute (ANC) - Automated 9.47(H) 1.70 - 6.10 x10(3)/mc L 11/07/2023 1:18 AM [facility] Comment:This is an appended report. These results have been appended to a previously preliminary verified report. Lymph % 10.5 % 11/07/2023 1:18 AM [facility] Comment:This is an appended report. These results have been appended to a previously preliminary verified report. Lymph Absolute 1.31 0.90 - 3.20 x10(3)/mc L 11/07/2023 1:18 AM [facility] Comment:This is an appended report. These results have been appended to a previously preliminary verified report. Monocyte % 7.5 % 11/07/2023 1:18 AM [facility] Comment:This is an appended report. These results have been appended to a previously preliminary verified report. Monocyte Absolute 0.93(H) 0.30 - 0.90 x10(3)/mc L 11/07/2023 1:18 AM [facility] Comment:This is an appended report. These results have been appended to a previously preliminary verified report. Eos % 2.2 % 11/07/2023 1:18 AM [facility] Comment:This is an appended report. These results have been appended to a previously preliminary verified report. Eos Absolute 0.28 0.00 - 0.40 x10(3)/mc L 11/07/2023 1:18 AM [facility] Comment:This is an appended report. These results have been appended to a previously preliminary verified report. Basophil % 0.5 % 11/07/2023 1:18 AM EDT [facility] Comment:This is an appended report. These results have been appended to a previously preliminary verified report. Baso Absolute 0.06 0.00 - 0.10 x10(3)/mc L 11/07/2023 1:18 AM EDT [facility] Comment:This is an appended report. These results have been appended to a previously preliminary verified report. Immature Gran % 3.4 % 1:18 AM EDT [facility] Comment:This is an appended report. These results have been appended to a previously preliminary verified report. Immature Gran Absolute 0.42(H) 0.00 - 0.04 x10(3)/mc L 11/07/2023 1:18 AM EDT [facility] Comment:This is an appended report. These results have been appended to a previously preliminary verified report. Blood VENOUS BLOOD SPECIMEN / Unknown IP Care Team Draw / Unknown 11/07/2023 12:16 AM EDT 11/07/2023 12:26 AM EDT Timi Person MD HEMATOLOGY ORDERABL ES [facility] [place] [address] * (ABNORMAL) Basic Metabolic Panel (11/07/2023 12:16 AM EDT) Glucose 154 65 - 199 mg/dL 11/07/2023 1:12 AM EDT [facility] Comment:Glucose Concentratio n >=200 mg/dL plus symptoms is consistent with Diabetes Mellitus. Blood Urea Nitrogen 97(H) 10 - 20 mg/dL 11/07/2023 1:12 AM EDT [facility] Creatinine 6.39(H) 0.80 - 1.50 mg/dL 11/07/2023 1:12 AM EDT [facility] Sodium 148(H) 135 - 145 mMol/L 11/07/2023 1:12 AM EDT [facility] Potassium 3.5 3.5 - 5.0 mMol/L 11/07/2023 1:12 AM EDT [facility] Chloride 106 98 - 107 mMol/L 11/07/2023 1:12 AM EDT [facility] Carbon Dioxide 19(L) 22 - 31 mMol/L 11/07/2023 1:12 AM EDT [facility] Anion Gap 23(H) 5 - 15 mMol/L 11/07/2023 1:12 AM EDT [facility] Calcium 8.3(L) 8.5 - 10.5 mg/dL 11/07/2023 1:12 AM EDT [facility] Est Glomerular Filtration Rate - Male 10 mL/min/1. 73 m?? 11/07/2023 1:12 AM EDT [facility] Comment: This patient's estimated [...] EDT Timi Person MD CHEMISTRY ORDERABLE S [facility] [place] [address] * (ABNORMAL) Phosphorus (11/07/2023 12:16 AM EDT) Phosphorus 9.1(HHH) 2.5 - 4.5 mg/dL 11/07/2023 1:15 AM EDT [facility] Blood VENOUS BLOOD SPECIMEN / Unknown IP Care Team Draw / Unknown 11/07/2023 12:16 AM EDT 11/07/2023 12:26 AM EDT Timi Person MD CHEMISTRY ORDERABLE S [facility] [place] [address] * (ABNORMAL) Magnesium (11/07/2023 12:16 AM EDT) Magnesium 1.17(H) 0.69 - 1.07 mMol/L 11/07/2023 12:56 AM EDT [facility] Blood VENOUS BLOOD SPECIMEN / Unknown IP Care Team Draw / Unknown 11/07/2023 12:16 AM EDT 11/07/2023 12:26 AM EDT Timi Person MD CHEMISTRY ORDERABLE S Performing Organization Address City/[facility] [address]/ZIP Co de Phone Number [facility] [place] [address] * Blood culture (11/06/2023 10:15 PM EDT) Blood Culture No growth at 120 hours 11/11/2023 11:01 PM EDT [facility] Blood VENOUS BLOOD SPECIMEN / Unknown IP Care Team Draw / Unknown 11/06/2023 10:15 PM EDT 11/06/2023 10:22 PM EDT Timi Person MD MICROBIOLOGY - BLOO D ORDERABLES [facility] [place] [address] * (ABNORMAL) Urinalysis Dipstick (11/06/2023 9:50 PM EDT) Glucose, Urine Dipstick Negative Negative 11/06/2023 10:14 PM EDT [facility] Protein, Urine Dipstick 100 mg/dL(A) Negative 11/06/2023 10:14 PM EDT [facility] Bilirubin, Urine Dipstick Negative Negative 11/06/2023 10:14 PM T [facility] Comment:Clinical correlation required for positive Urine Bilirubin results as false positive may occur with some drugs and drug related products. If a false positive is suspected a serum total bilirubin should be considered if clinically indicated. Urobilinogen, Urine Dipstick Normal Normal, 0.2 mg/dL, 1.0 mg/dL 11/06/2023 10:14 PM EDT [facility] pH, Urine (dipstick) 5.5 5.0 - 8.0 11/06/2023 10:14 PM EDT [facility] Blood, Urine Dipstick Negative Negative 11/06/2023 10:14 PM [facility] Ketone, Urine Dipstick Negative Negative 11/06/2023 10:14 PM [facility] Nitrite, Urine Dipstick Negative Negative 11/06/2023 10:14 PM [facility] Leukocytes, Urine Dipstick Negative Negative 11/06/2023 10:14 PM [facility] Specific [place] Urine Automated 1.013 1.005 - 1.030 11/06/2023 10:14 PM [facility] Appearance, Urine Dipstick Clear Clear 11/06/2023 10:14 PM [facility] Color, Urine Dipstick Yellow Yellow, Dark Yellow 11/06/2023 10:14 PM EDT [facility] CULTURE ADDED? 11/06/2023 10:14 PM [facility] Urine URINE SPECIMEN OBTAINED VIA [employer] / Unknown Non Blood Collection / Unknown 11/06/2023 9:50 PM EDT 11/06/2023 9:57 PM EDT Timi Person MD URINE ORDERABLES [facility] [place] [address] * (ABNORMAL) Blood Gas, Arterial POC (11/06/2023 7:59 PM EDT) pH, Arterial 7.44 7.35 - 7.45 11/06/2023 8:00 PM [facility] PCO2, Arterial 31(L) 35 - 45 mmHg 11/06/2023 8:00 PM [facility] PO2, Arterial 79(L) 85 - 104 mmHg 11/06/2023 8:00 PM [facility] Bicarbonate, Arterial 20.5 20.0 - 26.0 mmol/L 11/06/2023 8:00 PM [facility] Base Excess, Arterial -3.6(L) -3.0 - 3.0 mmol/L 11/06/2023 8:00 PM [facility] Hemoglobin, Arterial 8.5(L) 13.7 - 16.5 g/dL 11/06/2023 8:00 PM [facility] Oxyhemoglobin, Arterial 94.1 94.0 - 97.0 % 11/06/2023 8:00 PM [facility] Carboxyhemoglobin , Arterial 0.3 % 11/06/2023 8:00 PM [facility] Comment: Nonsmokers: 0.5-1.5% COHB ?? Smokers: Variable ??but usually less than 10% ?? Toxic: 20-30% COHB ?? Lethal: Greater than 60% COHB Methemoglobin, Arterial 0.3 <=1.5 % 11/06/2023 8:00 PM [facility] Sodium, Arterial 141 135 - 145 mmol/L 11/06/2023 8:00 PM [facility] Potassium, Arterial 3.6 3.5 - 5.0 mmol/L 11/06/2023 8:00 PM [facility] Chloride, Arterial 109(H) 98 - 107 mmol/L 11/06/2023 8:00 PM [facility] Lactate, Arterial 1.1 0.5 - 2.2 mmol/L 11/06/2023 8:00 PM EDT [facility] Fraction of Inspired Oxygen 50 % 11/06/2023 8:00 PM EDT [facility] PF Ratio 158 Ratio 11/06/2023 8:00 PM EDT [facility] Comment:PF ratio calculated using the non-temperature corrected pO2 result. IONIZED CALCIUM, ARTERIAL 1.07(L) 1.15 - 1.33 mmol/L 11/06/2023 8:00 PM EDT [facility] Glucose, Arterial 193 65 - 199 mg/dL 11/06/2023 8:00 PM EDT [facility] Comment:Glucose Concentratio n >=200 mg/dL plus symptoms is consistent with Diabetes Mellitus. Blood ARTERIAL BLOOD / Unknown 11/06/2023 7:59 PM EDT 11/06/2023 8:00 PM EDT Timi Person MD POINT OF CARE TEST ORDERABLES [facility] [place] [address] * (ABNORMAL) POC, GLUCOSE (11/06/2023 7:18 PM EDT) Glucometer, POC 234(H) 65 - 199 mg/dL 11/06/2023 7:18 PM EDT [facility] Comment:Supplemental ranges: <140 mg/dL before meals <180 mg/dL all other times of the day. Blood CAPILLARY BLOOD / Unknown 11/06/2023 7:18 PM EDT 11/06/2023 7:19 PM EDT Timi Person MD POINT OF CARE TEST ORDERABLES [facility] [place] [address] * (ABNORMAL) Blood Gas, Arterial POC (11/06/2023 4:00 PM EDT) pH, Arterial 7.42 7.35 - 7.45 11/06/2023 4:03 PM [facility] PCO2, Arterial 32(L) 35 - 45 mmHg 11/06/2023 4:03 PM [facility] [facility] PO2, Arterial 80(L) 85 - 104 mmHg 11/06/2023 4:03 PM [facility] Bicarbonate, Arterial 20.1 20.0 - 26.0 mmol/L 11/06/2023 4:03 PM [facility] Base Excess, Arterial -4.4(L) -3.0 - 3.0 mmol/L 11/06/2023 4:03 PM [facility] Hemoglobin, Arterial 8.5(L) 13.7 - 16.5 g/dL 11/06/2023 4:03 PM [facility] Oxyhemoglobin, Arterial 94.1 94.0 - 97.0 % 11/06/2023 4:03 PM [facility] Carboxyhemoglobin , Arterial 0.4 % 11/06/2023 4:03 PM [facility] Comment: Nonsmokers: 0.5-1.5% COHB ?? Smokers: Variable ??but usually less than 10% ?? Toxic: 20-30% COHB ?? Lethal: Greater than 60% COHB Methemoglobin, Arterial 0.3 <=1.5 % 11/06/2023 4:03 PM [facility] Sodium, Arterial 136 135 - 145 mmol/L 11/06/2023 4:03 PM [facility] Potassium, Arterial 4.0 3.5 - 5.0 mmol/L 11/06/2023 4:03 PM [facility] Chloride, Arterial 106 98 - 107 mmol/L 11/06/2023 4:03 PM [facility] Lactate, Arterial 1.1 0.5 - 2.2 mmol/L 11/06/2023 4:03 PM [facility] Fraction of Inspired Oxygen 50 % 11/06/2023 4:03 PM EDT [facility] PF Ratio 160 Ratio 11/06/2023 4:03 PM EDT [facility] Comment:PF ratio calculated using the non-temperature corrected pO2 result. IONIZED CALCIUM, ARTERIAL 1.04(L) 1.15 - 1.33 mmol/L 11/06/2023 4:03 PM EDT [facility] Glucose, Arterial 257(H) 65 - 199 mg/dL 11/06/2023 4:03 PM EDT [facility] Comment:Glucose Concentratio n >=200 mg/dL plus symptoms is consistent with Diabetes Mellitus. Blood ARTERIAL BLOOD / Unknown 11/06/2023 4:00 PM EDT 11/06/2023 4:03 PM EDT Timi Person MD POINT OF CARE TEST ORDERABLES Performing Organization Address City/State/[facility] Co de Phone Number [facility] [place] [address] * (ABNORMAL) Blood Gas, Arterial POC (11/06/2023 1:50 PM EDT) pH, Arterial 7.39 7.35 - 7.45 11/06/2023 1:52 PM EDT [facility] PCO2, Arterial 31(L) 35 - 45 mmHg 11/06/2023 1:52 PM EDT [facility] PO2, Arterial 65(L) 85 - 104 mmHg 11/06/2023 1:52 PM EDT [facility] Bicarbonate, Arterial 17.9(L) 20.0 - 26.0 mmol/L 11/06/2023 1:52 PM EDT [facility] Base Excess, Arterial -7.1(L) -3.0 - 3.0 mmol/L 11/06/2023 1:52 PM EDT [facility] Hemoglobin, Arterial 9.6(L) 13.7 - 16.5 g/dL 11/06/2023 1:52 PM EDT [facility] Oxyhemoglobin, Arterial 90.3(L) 94.0 - 97.0 % 11/06/2023 1:52 PM EDT [facility] Carboxyhemoglobin , Arterial 0.2 % 11/06/2023 1:52 PM EDT [facility] Comment: Nonsmokers: 0.5-1.5% COHB ?? Smokers: Variable ??but usually less than 10% ?? Toxic: 20-30% COHB ?? Lethal: Greater than 60% COHB Methemoglobin, Arterial 0.3 <=1.5 % 11/06/2023 1:52 PM EDT [facility] Sodium, Arterial 141 135 - 145 mmol/L 11/06/2023 1:52 PM EDT [facility] Potassium, Arterial 4.0 3.5 - 5.0 mmol/L 11/06/2023 1:52 PM EDT [facility] Chloride, Arterial 107 98 - 107 mmol/L 11/06/2023 1:52 PM EDT [facility] Lactate, Arterial 1.1 0.5 - 2.2 mmol/L 11/06/2023 1:52 PM EDT [facility] Fraction of Inspired Oxygen 40 % 11/06/2023 1:52 PM EDT [facility] PF Ratio 163 Ratio 11/06/2023 1:52 PM EDT [facility] Comment:PF ratio calculated using the non-temperature corrected pO2 result. IONIZED CALCIUM, ARTERIAL 1.07(L) 1.15 - 1.33 mmol/L 11/06/2023 1:52 PM EDT [facility] Glucose, Arterial 242(H) 65 - 199 mg/dL 11/06/2023 1:52 PM EDT [facility] Comment:Glucose Concentratio n >=200 mg/dL plus symptoms is consistent with Diabetes Mellitus. Blood ARTERIAL BLOOD / Unknown 11/06/2023 1:50 PM EDT 11/06/2023 1:52 PM EDT Timi Person MD POINT OF CARE TEST ORDERABLES [facility] [place] [address] * (ABNORMAL) Blood Gas, Arterial POC (11/06/2023 11:46 AM EDT) pH, Arterial 7.37 7.35 - 7.45 11/06/2023 11:48 AM EDT [facility] PCO2, Arterial 34(L) 35 - 45 mmHg 11/06/2023 11:48 AM EDT [facility] PO2, Arterial 73(L) 85 - 104 mmHg 11/06/2023 11:48 AM EDT [facility] Bicarbonate, Arterial 19.0(L) 20.0 - 26.0 mmol/L 11/06/2023 11:48 AM [facility] Base Excess, Arterial -6.3(L) -3.0 - 3.0 mmol/L 11/06/2023 11:48 AM EDT [facility] Hemoglobin, Arterial 8.7(L) 13.7 - 16.5 g/dL 11/06/2023 11:48 AM EDT [facility] Oxyhemoglobin, Arterial 92.2(L) 94.0 - 97.0 % 11/06/2023 11:48 AM [facility] Carboxyhemoglobin , Arterial 0.4 % 11/06[facility]23 11:[facility] Comment: Nonsmokers: 0.5-1.5% COHB ?? Smokers: Variable ??but usually less than 10% ?? Toxic: 20-30% COHB ?? Lethal: Greater than 60% COHB Methemoglobin, Arterial 0.3 <=1.5 % 11/06/2023 11:48 AM EDT [facility] Sodium, Arterial 142 135 - 145 mmol/L 11/06/2023 11:48 [facility] Potassium, Arterial 4.0 3.5 - 5.0 mmol/L 11/06/2023 11:48 AM EDT [facility] Chloride, Arterial 108(H) 98 - 107 mmol/L 11/06/2023 11:48 AM EDT [facility] Lactate, Arterial 1.1 0.5 - 2.2 mmol/L 11/06/2023 11:48 AM EDT [facility] Fraction of Inspired Oxygen 40 % 11/06/2023 11:48 AM EDT [facility] PF Ratio 183 Ratio 11/06/2023 11:48 AM EDT [facility] Comment:PF ratio calculated using the non-temperature corrected pO2 result. IONIZED CALCIUM, ARTERIAL 1.07(L) 1.15 - 1.33 mmol/L 11/06/2023 11:48 AM EDT [facility] Glucose, Arterial 208(H) 65 - 199 mg/dL 11/06/2023 11:48 AM EDT [facility] Comment:Glucose Concentratio n >=200 mg/dL plus symptoms is consistent with Diabetes Mellitus. Blood ARTERIAL BLOOD / Unknown 11/06/2023 11:46 AM EDT 11/06/2023 11:47 AM EDT Timi Person MD POINT OF CARE TEST ORDERABLES [facility] [place] [address] * Potassium (11/06/2023 7:53 AM EDT) Potassium 4.3 3.5 - 5.0 mMol/L 11/06/2023 8:37 AM EDT [facility] Blood VENOUS BLOOD SPECIMEN / Unknown IP Care Team Draw / Unknown 11/06/2023 7:53 AM EDT 11/06/2023 7:57 AM EDT Timi Person MD CHEMISTRY ORDERABLE S [facility] [place] [address] * (ABNORMAL) Blood Gas, Arterial POC (11/06/2023 7:51 AM EDT) pH, Arterial 7.37 7.35 - 7.45 11/06/2023 7:52 AM [facility] PCO2, Arterial 35 35 - 45 mmHg 11/06/2023 7:52 AM [facility] PO2, Arterial 81(L) 85 - 104 mmHg 11/06/2023 7:52 AM [facility] Bicarbonate, Arterial 19.6(L) 20.0 - 26.0 mmol/L 11/06/2023 7:52 AM [facility] Base Excess, Arterial -5.7(L) -3.0 - 3.0 mmol/L 11/06/2023 7:52 AM [facility] Hemoglobin, Arterial 9.8(L) 13.7 - 16.5 g/dL 11/06/2023 7:52 AM [facility] Oxyhemoglobin, Arterial 93.7(L) 94.0 - 97.0 % 11/06/2023 7:52 AM [facility] Carboxyhemoglobin , Arterial 0.3 % 11/06/2023 7:52 AM [facility] Comment: Nonsmokers: 0.5-1.5% COHB ?? Smokers: Variable ??but usually less than 10% ?? Toxic: 20-30% COHB ?? Lethal: Greater than 60% COHB Methemoglobin, Arterial 0.3 <=1.5 % 11/06/2023 7:52 AM [facility] Sodium, Arterial 140 135 - 145 mmol/L 11/06/2023 7:52 AM [facility] Potassium, Arterial 4.1 3.5 - 5.0 mmol/L 11/06/2023 7:52 AM [facility] Chloride, Arterial 106 98 - 107 mmol/L 11/06/2023 7:52 AM [facility] Lactate, Arterial 1.0 0.5 - 2.2 mmol/L 11/06/2023 7:52 AM [facility] Fraction of Inspired Oxygen 40 % 11/06/2023 7:52 AM EDT [facility] PF Ratio 203 Ratio 11/06/2023 7:52 AM EDT [facility] Comment:PF ratio calculated using the non-temperature corrected pO2 result. IONIZED CALCIUM, ARTERIAL 1.07(L) 1.15 - 1.33 mmol/L 11/06/2023 7:52 AM EDT [facility] Glucose, Arterial 183 65 - 199 mg/dL 11/06/2023 7:52 AM EDT [facility] Comment:Glucose Concentratio n >=200 mg/dL plus symptoms is consistent with Diabetes Mellitus. Blood ARTERIAL BLOOD / Unknown 11/06/2023 7:51 AM EDT 11/06/2023 7:52 AM EDT Timi Person MD POINT OF CARE TEST ORDERABLES Performing Organization Address City/State/[facility] Co de Phone Number [facility] [place] [address] * (ABNORMAL) Blood Gas, Arterial POC (11/06/2023 6:48 AM EDT) pH, Arterial 7.39 7.35 - 7.45 11/06/2023 6:49 AM EDT [facility] PCO2, Arterial 34(L) 35 - 45 mmHg 11/06/2023 6:49 AM EDT [facility] PO2, Arterial 86 85 - 104 mmHg 11/06/2023 6:49 AM EDT [facility] Bicarbonate, Arterial 20.2 20.0 - 26.0 mmol/L 11/06/2023 6:49 AM EDT [facility] Base Excess, Arterial -4.9(L) -3.0 - 3.0 mmol/L 11/06/2023 6:49 AM EDT [facility] Hemoglobin, Arterial 9.2(L) 13.7 - 16.5 g/dL 11/06/2023 6:49 AM EDT [facility] Oxyhemoglobin, Arterial 94.6 94.0 - 97.0 % 11/06/2023 6:49 AM [facility] Carboxyhemoglobin , Arterial 0.3 % 11/06/2023 6:49 AM [facility] Comment: Nonsmokers: 0.5-1.5% COHB ?? Smokers: Variable ??but usually less than 10% ?? Toxic: 20-30% COHB ?? Lethal: Greater than 60% COHB Methemoglobin, Arterial 0.3 <=1.5 % 11/06/2023 6:49 AM [facility] Sodium, Arterial 140 135 - 145 mmol/L 11/06/2023 6:49 AM [facility] Potassium, Arterial 4.5 3.5 - 5.0 mmol/L 11/06/2023 6:49 AM [facility] Chloride, Arterial 105 98 - 107 mmol/L 11/06/2023 6:49 AM [facility] Lactate, Arterial 1.0 0.5 - 2.2 mmol/L 11/06/2023 6:49 AM [facility] Fraction of Inspired Oxygen 40 % 11/06/2023 6:49 AM [facility] PF Ratio 215 Ratio 11/06/2023 6:49 AM [facility] Comment:PF ratio calculated using the non-temperature corrected pO2 result. IONIZED CALCIUM, ARTERIAL 1.09(L) 1.15 - 1.33 mmol/L 11/06/2023 6:49 AM [facility] Glucose, Arterial 197 65 - 199 mg/dL 11/06/2023 6:49 AM [facility] Comment:Glucose Concentratio n >=200 mg/dL plus symptoms is consistent with Diabetes Mellitus. Blood ARTERIAL BLOOD / Unknown 11/06/2023 6:48 AM EDT 11/06/2023 6:49 AM EDT Timi Person MD POINT OF CARE TEST ORDERABLES [facility] [place] [address] * (ABNORMAL) Blood Gas, Arterial POC (11/06/2023 4:08 AM EDT) pH, Arterial 7.41 7.35 - 7.45 11/06/2023 4:09 AM EDT [facility] PCO2, Arterial 35 35 - 45 mmHg 11/06/2023 4:09 AM EDT [facility] PO2, Arterial 94 85 - 104 mmHg 11/06/2023 4:09 AM EDT [facility] Bicarbonate, Arterial 21.3 20.0 - 26.0 mmol/L 11/06/2023 4:09 AM [facility] Base Excess, Arterial -3.4(L) -3.0 - 3.0 mmol/L 11/06/2023 4:09 AM EDT [facility] Hemoglobin, Arterial 9.2(L) 13.7 - 16.5 g/dL 11/06/2023 4:[facility] Oxyhemoglobin, Arterial 96.0 94.0 - 97.0 % 11/06/2023 4:09 [facility] Carboxyhemoglobin , Arterial 0.1 % 11/06/2023 4:09 AM [facility] Comment: Nonsmokers: 0.5-1.5% COHB ?? Smokers: Variable ??but usually less than 10% ?? Toxic: 20-30% COHB ?? Lethal: Greater than 60% COHB Methemoglobin, Arterial 0.3 <=1.5 % 11/06/2023 4:09 AM EDT [facility] Sodium, Arterial 140 135 - 145 mmol/L 11/06/2023 4:09 [facility] Potassium, Arterial 4.0 3.5 - 5.0 mmol/L 11/06/2023 4:09 AM EDT [facility] Chloride, Arterial 105 98 - 107 mmol/L 11/06/2023 4:09 AM EDT [facility] Lactate, Arterial 1.2 0.5 - 2.2 mmol/L 11/06/2023 4:09 AM EDT [facility] Fraction of Inspired Oxygen 50 % 11/06/2023 4:09 AM EDT [facility] PF Ratio 188 Ratio 11/06/2023 4:09 AM EDT [facility] Comment:PF ratio calculated using the non-temperature corrected pO2 result. IONIZED CALCIUM, ARTERIAL 1.07(L) 1.15 - 1.33 mmol/L 11/06/2023 4:09 AM EDT [facility] Glucose, Arterial 188 65 - 199 mg/dL 11/06/2023 4:09 AM EDT [facility] Comment:Glucose Concentratio n >=200 mg/dL plus symptoms is consistent with Diabetes Mellitus. Blood ARTERIAL BLOOD / Unknown 11/06/2023 4:08 AM EDT 11/06/2023 4:09 AM EDT Timi Person MD POINT OF CARE TEST ORDERABLES [facility] [place] [address] * Potassium (11/06/2023 4:06 AM EDT) Potassium 3.6 3.5 - 5.0 mMol/L 11/06/2023 4:38 AM EDT [facility] Blood VENOUS BLOOD SPECIMEN / Unknown IP Care Team Draw / Unknown 11/06/2023 4:06 AM EDT 11/06/2023 4:10 AM EDT Timi Person MD CHEMISTRY ORDERABLE S [facility] [place] [address] * (ABNORMAL) CBC (with Diff) (11/06/2023 12:01 AM EDT) White Blood Cell 13.00(H) 4.00 - 9.50 x10(3)/mc L 11/06/2023 12:19 AM [facility] Red Blood Cell 3.93(L) 4.58 - 5.54 x10(6)/mc L 11/06/2023 12:19 AM [facility] Hemoglobin 8.3(L) 13.7 - 16.5 g/dL 11/06/2023 12:19 AM [facility] Hematocrit 26.2(L) 40.5 - 48.5 % 11/06/2023 12:19 AM [facility] Mean Cell Volume 66.7(L) 82.9 - 93.1 fL 11/06/2023 12:19 AM [facility] Mean Cell Hemoglobin 21.1(L) 27.5 - 32.1 pg 11/06/2023 12:19 AM [facility] Mean Cell Hemoglobin Concentration 31.7(L) 32.0 - 35.7 g/dL 11/06/2023 12:19 AM [facility] Platelet 300 145 - 357 x10(3)/mc L 11/06/2023 12:19 AM [facility] Mean Platelet Volume 10.7 7.6 - 12.9 fL 11/06/2023 12:19 AM [facility] RDW Standard Deviation 44.1 36.0 - 45.0 fL 11/06/2023 12:19 AM [facility] RDW coefficient of variation 18.8(H) 11.4 - 13.8 % 11/06/2023 12:19 AM [facility] NRBC% auto 0.6 % 11/06/2023 12:19 AM [facility] NRBC Absolute 0.08(H) 0.00 - 0.00 x10(3)/mc L 11/06/2023 12:19 AM [facility] Neutrophil % 81.1 % 11/06/2023 12:19 AM EDT [facility] Neutrophil Absolute (ANC) - Automated 10.54(H) 1.70 - 6.10 x10(3)/mc L 11/06/2023 12:19 AM EDT [facility] Lymph % 7.2 % 11/06/2023 12:19 AM EDT [facility] Lymph Absolute 0.94 0.90 - 3.20 x10(3)/mc L 11/06/2023 12:19 AM EDT [facility] Monocyte % 7.3 % 11/06/2023 12:19 AM EDT [facility] Monocyte Absolute 0.95(H) 0.30 - 0.90 x10(3)/mc L 11/06/2023 12:19 AM EDT [facility] Eos % 1.2 % 11/06/2023 12:19 AM EDT [facility] Eos Absolute 0.15 0.00 - 0.40 x10(3)/mc L 11/06/2023 12:19 AM EDT [facility] Basophil % 0.3 % 11/06/2023 12:19 AM EDT [facility] Baso Absolute 0.04 0.00 - 0.10 x10(3)/mc L 11/06/2023 12:19 AM EDT [facility] Immature Gran % 2.9 % 12:19 AM EDT [facility] Immature Gran Absolute 0.38(H) 0.00 - 0.04 x10(3)/mc L 11/06/2023 12:19 AM EDT [facility] Blood VENOUS BLOOD SPECIMEN / Unknown IP Care Team Draw / Unknown 11/06/2023 12:01 AM EDT 11/06/2023 12:15 AM EDT Timi Person MD HEMATOLOGY ORDERABL ES [facility] [place] [address] * (ABNORMAL) Basic Metabolic Panel (11/06/2023 12:01 AM ED) Glucose 184 65 - 199 mg/dL 11/06/2023 12:41 AM [facility] Comment:Glucose Concentratio n >=200 mg/dL plus symptoms is consistent with Diabetes Mellitus. Blood Urea Nitrogen 83(H) 10 - 20 mg/dL 11/06/2023 12:41 AM [facility] Creatinine 5.61(H) 0.80 - 1.50 mg/dL 11/06/2023 12:41 AM [facility] Sodium 143 135 - 145 mMol/L 11/06/2023 12:41 AM [facility] Potassium 3.5 3.5 - 5.0 mMol/L 11/06/2023 12:41 AM [facility] Chloride 105 98 - 107 mMol/L 11/06/2023 12:41 AM [facility] Carbon Dioxide 18(L) 22 - 31 mMol/L 11/06/2023 12:41 AM [facility] Anion Gap 20(H) 5 - 15 mMol/L 11/06/2023 12:41 AM [facility] Calcium 7.6(L) 8.5 - 10.5 mg/dL 11/06/2023 12:41 AM [facility] Est Glomerular Filtration Rate - Male 12 mL/min/1. 73 m?? 11/06/2023 12:41 AM [facility] Comment: This patient's estimated GFR was [...] 12:01 AM EDT 11/06/2023 12:15 AM EDT Tmii Person MD CHEMISTRY ORDERABLE S [facility] [place] [address] * (ABNORMAL) Phosphorus (11/06/2023 12:01 AM EDT) Phosphorus 9.0(H) 2.5 - 4.5 mg/dL 11/06/2023 12:41 AM EDT [facility] Blood VENOUS BLOOD SPECIMEN / Unknown IP Care Team Draw / Unknown 11/06/2023 12:01 AM EDT 11/06/2023 12:15 AM EDT Timi Person MD CHEMISTRY ORDERABLE S [facility] [place] [address] * Magnesium (11/06/2023 12:01 AM EDT) Magnesium 1.02 0.69 - 1.07 mMol/L 11/06/2023 12:41 AM EDT [facility] Blood VENOUS BLOOD SPECIMEN / Unknown IP Care Team Draw / Unknown 11/06/2023 12:01 AM EDT 11/06/2023 12:15 AM EDT Timi Person MD CHEMISTRY ORDERABLE S [facility] [place] [address] * (ABNORMAL) Blood Gas, Arterial POC (11/06/2023 12:00 AM EDT) pH, Arterial 7.40 7.35 - 7.45 11/06/2023 12:02 AM EDT [facility] PCO2, Arterial 36 35 - 45 mmHg 11/06/2023 12:02 AM [facility] PO2, Arterial 99 85 - 104 mmHg 11/06/2023 12:02 AM [facility] Bicarbonate, Arterial 21.7 20.0 - 26.0 mmol/L 11/06/2023 12:02 AM [facility] Base Excess, Arterial -3.1(L) -3.0 - 3.0 mmol/L 11/06/2023 12:02 AM [facility] Hemoglobin, Arterial 9.4(L) 13.7 - 16.5 g/dL 11/06/2023 12:02 AM [facility] Oxyhemoglobin, Arterial 96.0 94.0 - 97.0 % 11/06/2023 12:02 AM [facility] Carboxyhemoglobin , Arterial 0.3 % 11/06/2023 12:02 AM [facility] Comment: Nonsmokers: 0.5-1.5% COHB ?? Smokers: Variable ??but usually less than 10% ?? Toxic: 20-30% COHB ?? Lethal: Greater than 60% COHB Methemoglobin, Arterial 0.3 <=1.5 % 11/06/2023 12:02 AM [facility] Sodium, Arterial 140 135 - 145 mmol/L 11/06/2023 12:02 AM [facility] Potassium, Arterial 3.7 3.5 - 5.0 mmol/L 11/06/2023 12:02 AM [facility] Chloride, Arterial 104 98 - 107 mmol/L 11/06/2023 12:02 AM [facility] Lactate, Arterial 1.2 0.5 - 2.2 mmol/L 11/06/2023 12:02 AM [facility] Fraction of Inspired Oxygen 60 % 11/06/2023 12:02 AM [facility] PF Ratio 165 Ratio 11/06/2023 12:02 AM [facility] Comment:PF ratio calculated using the non-temperature corrected pO2 result. IONIZED CALCIUM, ARTERIAL 1.06(L) 1.15 - 1.33 mmol/L 11/06/2023 12:02 AM EDT [facility] Glucose, Arterial 197 65 - 199 mg/dL 11/06/2023 12:02 AM EDT [facility] Comment:Glucose Concentratio n >=200 mg/dL plus symptoms is consistent with Diabetes Mellitus. Blood ARTERIAL BLOOD / Unknown 11/06/2023 12:00 AM EDT 11/06/2023 12:02 AM EDT Timi Person MD POINT OF CARE TEST ORDERABLES Performing Organization Address City/[facility] [address]/ZIP Co de Phone Number [facility] [place] [address] * Prepare RBC (11/05/2023 10:03 PM EDT) Status Information Transfused [facility] Product Identification RBC [facility] Unit Number [id number] [facility] Product Code C6904H84 [facility] Unit Blood Type OPOS [facility] Specimen Expiration Date [id number] [facility] [address] [facility] Issue Date / Time [id number] [facility] Blood 11/05/2023 8:4 8 AM EDT Timi Person MD BLOOD BANK PRODUCT ORDERABLES [facility] [place] [place] [address] * (ABNORMAL) Blood Gas, Arterial POC (11/05/2023 8:06 PM EDT) pH, Arterial 7.40 7.35 - 7.45 11/05/2023 8:07 PM EDT [facility] PCO2, Arterial 32(L) 35 - 45 mmHg 11/05/2023 8:07 PM EDT [facility] PO2, Arterial 111(H) 85 - 104 mmHg 11/05/2023 8:07 PM [facility] Bicarbonate, Arterial 19.3(L) 20.0 - 26.0 mmol/L 11/05/2023 8:07 PM [facility] Base Excess, Arterial -5.4(L) -3.0 - 3.0 mmol/L 11/05/2023 8:07 PM [facility] Hemoglobin, Arterial 9.4(L) 13.7 - 16.5 g/dL 11/05/2023 8:07 PM [facility] Oxyhemoglobin, Arterial 97.1(H) 94.0 - 97.0 % 11/05/2023 8:07 PM [facility] Carboxyhemoglobin , Arterial 0.1 % 11/05/2023 8:07 PM [facility] Comment: Nonsmokers: 0.5-1.5% COHB ?? Smokers: Variable ??but usually less than 10% ?? Toxic: 20-30% COHB ?? Lethal: Greater than 60% COHB Methemoglobin, Arterial 0.3 <=1.5 % 11/05/2023 8:07 PM [facility] Sodium, Arterial 139 135 - 145 mmol/L 11/05/2023 8:07 PM [facility] Potassium, Arterial 3.8 3.5 - 5.0 mmol/L 11/05/2023 8:07 PM [facility] Chloride, Arterial 104 98 - 107 mmol/L 11/05/2023 8:07 PM [facility] Lactate, Arterial 1.1 0.5 - 2.2 mmol/L 11/05/2023 8:07 PM [facility] Fraction of Inspired Oxygen 80 % 11/05/2023 8:07 PM [facility] PF Ratio 139 Ratio 11/05/2023 8:07 PM [facility] Comment:PF ratio calculated using the non-temperature corrected pO2 result. IONIZED CALCIUM, ARTERIAL 1.06(L) 1.15 - 1.33 mmol/L 11/05/2023 8:07 PM EDT [facility] Glucose, Arterial 199 65 - 199 mg/dL 11/05/2023 8:07 PM EDT [facility] Comment:Glucose Concentratio n >=200 mg/dL plus symptoms is consistent with Diabetes Mellitus. Blood ARTERIAL BLOOD / Unknown 11/05/2023 8:06 PM EDT 11/05/2023 8:07 PM EDT Timi Person MD POINT OF CARE TEST ORDERABLES [facility] [place] [address] * (ABNORMAL) Blood Gas, Arterial POC (11/05/2023 5:52 PM EDT) pH, Arterial 7.37 7.35 - 7.45 11/05/2023 5:53 PM EDT [facility] PCO2, Arterial 36 35 - 45 mmHg 11/05/2023 5:53 PM EDT [facility] PO2, Arterial 191(H) 85 - 104 mmHg 11/05/2023 5:53 PM EDT [facility] Bicarbonate, Arterial 20.4 20.0 - 26.0 mmol/L 11/05/2023 5:53 PM EDT [facility] Base Excess, Arterial -4.8(L) -3.0 - 3.0 mmol/L 11/05/2023 5:53 PM EDT [facility] Hemoglobin, Arterial 9.2(L) 13.7 - 16.5 g/dL 11/05/2023 5:53 PM EDT [facility] Oxyhemoglobin, Arterial 98.3(H) 94.0 - 97.0 % 11/05/2023 5:53 PM EDT [facility] Carboxyhemoglobin , Arterial 0.3 % 11/05/2023 5:53 PM EDT [facility] Comment: Nonsmokers: 0.5-1.5% COHB ?? Smokers: Variable ??but usually less than 10% ?? Toxic: 20-30% COHB ?? Lethal: Greater than 60% COHB Methemoglobin, Arterial 0.3 <=1.5 % 11/05/2023 5:53 PM EDT [facility] Sodium, Arterial 141 135 - 145 mmol/L 11/05/2023 5:53 PM EDT [facility] Potassium, Arterial 3.6 3.5 - 5.0 mmol/L 11/05/2023 5:53 PM EDT [facility] Chloride, Arterial 105 98 - 107 mmol/L 11/05/2023 5:53 PM EDT [facility] Lactate, Arterial 1.2 0.5 - 2.2 mmol/L 11/05/2023 5:53 PM EDT [facility] Fraction of Inspired Oxygen 100 % 11/05/2023 5:53 PM EDT [facility] PF Ratio 191 Ratio 11/05/2023 5:53 PM EDT [facility] Comment:PF ratio calculated using the non-temperature corrected pO2 result. IONIZED CALCIUM, ARTERIAL 1.04(L) 1.15 - 1.33 mmol/L 11/05/2023 5:53 PM EDT [facility] Glucose, Arterial 195 65 - 199 mg/dL 11/05/2023 5:53 PM EDT [facility] Comment:Glucose Concentratio n >=200 mg/dL plus symptoms is consistent with Diabetes Mellitus. Blood ARTERIAL BLOOD / Unknown 11/05/2023 5:52 PM EDT 11/05/2023 5:53 PM EDT Timi Person MD POINT OF CARE TEST ORDERABLES [facility] [place] [address] * (ABNORMAL) Blood Gas, Arterial POC (11/05/2023 4:03 PM EDT) pH, Arterial 7.38 7.35 - 7.45 11/05/2023 4:04 PM [facility] PCO2, Arterial 34(L) 35 - 45 mmHg 11/05/2023 4:04 PM [facility] PO2, Arterial 103 85 - 104 mmHg 11/05/2023 4:04 PM [facility] Bicarbonate, Arterial 19.3(L) 20.0 - 26.0 mmol/L 11/05/2023 4:04 PM [facility] Base Excess, Arterial -5.9(L) -3.0 - 3.0 mmol/L 11/05/2023 4:04 PM [facility] Hemoglobin, Arterial 11.1(L) 13.7 - 16.5 g/dL 11/05/2023 4:04 PM [facility] Oxyhemoglobin, Arterial 96.4 94.0 - 97.0 % 11/05/2023 4:04 PM [facility] Carboxyhemoglobin , Arterial 0.3 % 11/05/2023 4:04 PM [facility] Comment: Nonsmokers: 0.5-1.5% COHB ?? Smokers: Variable ??but usually less than 10% ?? Toxic: 20-30% COHB ?? Lethal: Greater than 60% COHB Methemoglobin, Arterial 0.3 <=1.5 % 11/05/2023 4:04 PM [facility] Sodium, Arterial 139 135 - 145 mmol/L 11/05/2023 4:04 PM [facility] Potassium, Arterial 3.8 3.5 - 5.0 mmol/L 11/05/2023 4:04 PM [facility] Chloride, Arterial 103 98 - 107 mmol/L 11/05/2023 4:04 PM [facility] Lactate, Arterial 1.2 0.5 - 2.2 mmol/L 11/05/2023 4:04 PM [facility] Fraction of Inspired Oxygen 100 % 11/05/2023 4:04 PM [facility] PF Ratio 103 Ratio 11/05/2023 4:04 PM EDT [facility] Comment:PF ratio calculated using the non-temperature corrected pO2 result. IONIZED CALCIUM, ARTERIAL 1.08(L) 1.15 - 1.33 mmol/L 11/05/2023 4:04 PM EDT [facility] Glucose, Arterial 203(H) 65 - 199 mg/dL 11/05/2023 4:04 PM EDT [facility] Comment:Glucose Concentratio n >=200 mg/dL plus symptoms is consistent with Diabetes Mellitus. Blood ARTERIAL BLOOD / Unknown 11/05/2023 4:03 PM EDT 11/05/2023 4:04 PM EDT Timi Person MD POINT OF CARE TEST ORDERABLES [facility] [place] [address] * XR Chest One View (11/05/2023 3:02 PM EDT) [employer] WORKSTATION ID [id number] DH RAD Anatomical Region Laterality Modality Chest [...] who have questions please contact the health healthcare account manager that requested your imaging first. ? Narrative [...] below the level diaphragm and below the [id number]. Sternotomy cables and external monitoring leads are [...] descends below the level diaphragm and below [id number]. Sternotomy cables and external monitoring leads are [...] patients who have questions please contactthe health healthcare account manager that requested your imaging first. Timi Person MD IMG DX ORDERABLES * (ABNORMAL) Blood Gas, Arterial POC (11/05/2023 2:11 PM EDT) pH, Arterial 7.33(L) 7.35 - 7.45 11/05/2023 2:15 PM EDT [facility] PCO2, Arterial 32(L) 35 - 45 mmHg 11/05/2023 2:15 PM EDT [facility] PO2, Arterial 130(H) 85 - 104 mmHg 11/05/2023 2:15 PM EDT [facility] Bicarbonate, Arterial 16.5(L) 20.0 - 26.0 mmol/L 11/05/2023 2:15 PM EDT [facility] Base Excess, Arterial -9.5(L) -3.0 - 3.0 mmol/L 11/05/2023 2:15 PM EDT [facility] Hemoglobin, Arterial 9.6(L) 13.7 - 16.5 g/dL 11/05/2023 2:15 PM EDT [facility] Oxyhemoglobin, Arterial 97.5(H) 94.0 - 97.0 % 11/05/2023 2:15 PM EDT [facility] Carboxyhemoglobin , Arterial 0.1 % 11/05/2023 2:15 PM EDT [facility] Comment: Nonsmokers: 0.5-1.5% COHB ?? Smokers: Variable ??but usually less than 10% ?? Toxic: 20-30% COHB ?? Lethal: Greater than 60% COHB Methemoglobin, Arterial 0.3 <=1.5 % 11/05/2023 2:15 PM EDT [facility] Sodium, Arterial 139 135 - 145 mmol/L 11/05/2023 2:15 PM EDT [facility] Potassium, Arterial 4.0 3.5 - 5.0 mmol/L 11/05/2023 2:15 PM EDT [facility] Chloride, Arterial 104 98 - 107 mmol/L 11/05/2023 2:15 PM EDT [facility] Lactate, Arterial 1.0 0.5 - 2.2 mmol/L 11/05/2023 2:15 PM EDT [facility] Fraction of Inspired Oxygen 100 % 11/05/2023 2:15 PM EDT [facility] PF Ratio 130 Ratio 11/05/2023 2:15 PM EDT [facility] Comment:PF ratio calculated using the non-temperature corrected pO2 result. IONIZED CALCIUM, ARTERIAL 1.08(L) 1.15 - 1.33 mmol/L 11/05/2023 2:15 PM EDT [facility] Glucose, Arterial 174 65 - 199 mg/dL 11/05/2023 2:15 PM EDT [facility] Comment:Glucose Concentratio n >=200 mg/dL plus symptoms is consistent with Diabetes Mellitus. Blood ARTERIAL BLOOD / Unknown 11/05/2023 2:11 PM EDT 11/05/2023 2:15 PM EDT Timi Person MD POINT OF CARE TEST ORDERABLES [facility] [place] [address] * (ABNORMAL) Blood Gas, Arterial POC (11/05/2023 12:03 PM EDT) pH, Arterial 7.33(L) 7.35 - 7.45 11/05/2023 12:04 PM EDT [facility] PCO2, Arterial 38 35 - 45 mmHg 11/05/2023 12:04 PM EDT [facility] PO2, Arterial 95 85 - 104 mmHg 11/05/2023 12:04 PM EDT [facility] Bicarbonate, Arterial 19.1(L) 20.0 - 26.0 mmol/L 11/05/2023 12:04 PM [facility] Base Excess, Arterial -6.9(L) -3.0 - 3.0 mmol/L 11/05/2023 12:04 PM [facility] Hemoglobin, Arterial 9.6(L) 13.7 - 16.5 g/dL 11/05/2023 12:04 PM [facility] Oxyhemoglobin, Arterial 95.6 94.0 - 97.0 % 11/05/2023 12:04 PM [facility] Carboxyhemoglobin , Arterial 0.3 % 11/05/2023 12:04 PM [facility] Comment: Nonsmokers: 0.5-1.5% COHB ?? Smokers: Variable ??but usually less than 10% ?? Toxic: 20-30% COHB ?? Lethal: Greater than 60% COHB Methemoglobin, Arterial 0.3 <=1.5 % 11/05/2023 12:04 PM [facility] Sodium, Arterial 140 135 - 145 mmol/L 11/05/2023 12:04 PM [facility] Potassium, Arterial 4.0 3.5 - 5.0 mmol/L 11/05/2023 12:04 PM [facility] Chloride, Arterial 104 98 - 107 mmol/L 11/05/2023 12:04 PM [facility] Lactate, Arterial 1.1 0.5 - 2.2 mmol/L 11/05/2023 12:04 PM [facility] Fraction of Inspired Oxygen 40 % 11/05/2023 12:04 PM [facility] PF Ratio 238 Ratio 11/05/2023 12:04 PM [facility] Comment:PF ratio calculated using the non-temperature corrected pO2 result. IONIZED CALCIUM, ARTERIAL 1.07(L) 1.15 - 1.33 mmol/L 11/05/2023 12:04 PM [facility] Glucose, Arterial 181 65 - 199 mg/dL 11/05/2023 12:04 PM EDT [facility] Comment:Glucose Concentratio n >=200 mg/dL plus symptoms is consistent with Diabetes Mellitus. Blood ARTERIAL BLOOD / Unknown 11/05/2023 12:03 PM EDT 11/05/2023 12:04 PM EDT Timi Person MD POINT OF CARE TEST ORDERABLES Performing Organization Address City/[facility] [address]/ZIP Co de Phone Number [facility] [place] [address] * (ABNORMAL) Phosphorus (11/05/2023 12:01 PM EDT) Phosphorus 10.5(HHH) 2.5 - 4.5 mg/dL 11/05/2023 1:05 PM EDT [facility] Blood VENOUS BLOOD SPECIMEN / Unknown IP Care Team Draw / Unknown 11/05/2023 12:01 PM EDT 11/05/2023 12:17 PM EDT Calos Lazo MD CHEMISTRY ORDERABLES Performing Organization Address City/[facility] [address]/[facility] Co de Phone Number [facility] [place] [address] * (ABNORMAL) Magnesium (11/05/2023 12:01 PM EDT) Magnesium 1.08(H) 0.69 - 1.07 mMol/L 11/05/2023 12:47 PM EDT [facility] Blood VENOUS BLOOD SPECIMEN / Unknown IP Care Team Draw / Unknown 11/05/2023 12:01 PM EDT 11/05/2023 12:17 PM EDT Calos Lazo MD CHEMISTRY ORDERABLES Performing Organization Address City/[facility] [address]/ZIP Co de Phone Number [facility] [place] [address] * (ABNORMAL) Creatinine (11/05/2023 12:01 PM EDT) Creatinine 5.90(H) 0.80 - 1.50 mg/dL 11/05/2023 12:47 PM EDT [facility] Est Glomerular Filtration Rate - Male 11 mL/min/1. 73 m?? 11/05/2023 12:47 PM EDT [facility] Comment: This patient's estimated [...] PM EDT Calos Lazo MD CHEMISTRY ORDERABLES [facility] [place] [address] * (ABNORMAL) BUN (11/05/2023 12:01 PM EDT) Blood Urea Nitrogen 83(H) 10 - 20 mg/dL 11/05/2023 12:47 PM EDT [facility] Blood VENOUS BLOOD SPECIMEN / Unknown IP Care Team Draw / Unknown 11/05/2023 12:01 PM EDT 11/05/2023 12:17 PM EDT Calos Lazo MD CHEMISTRY ORDERABLES [facility] [place] [address] * (ABNORMAL) Electrolytes panel (11/05/2023 12:01 PM EDT) Sodium 141 135 - 145 mMol/L 11/05/2023 12:47 PM EDT [facility] Potassium 4.1 3.5 - 5.0 mMol/L 11/05/2023 12:47 PM EDT [facility] Chloride 103 98 - 107 mMol/L 11/05/2023 12:47 PM EDT [facility] Carbon Dioxide 19(L) 22 - 31 mMol/L 11/05/2023 12:47 PM EDT [facility] Anion Gap 19(H) 5 - 15 mMol/L 11/05/2023 12:47 PM EDT [facility] Blood VENOUS BLOOD SPECIMEN / Unknown IP Care Team Draw / Unknown 11/05/2023 12:01 PM EDT 11/05/2023 12:17 PM EDT Calos Lazo MD CHEMISTRY ORDERABLES [facility] [place] [address] * XR Chest One View (11/05/2023 11:53 AM EDT) [employer] WORKSTATION ID [id number] RAD Anatomical Region Laterality Modality Chest N/A [...] who have questions please contact the health healthcare account manager that requested your imaging first. ? Narrative [...] below the level diaphragm and below the [id number]. Multiple external monitoring leads and partially visualized [...] descends below the level diaphragm and below [id number]. Multiple external monitoring leads and partially visualized [...] patients who have questions please contactthe health healthcare account manager that requested your imaging first. Timi Person MD IMG DX ORDERABLES * Transfuse RBC (11/05/2023 11:51 AM EDT) Timi Person MD NURSING TREATMENT O RDERABLES - BLOOD ADMIN * Transfuse RBC (11/05/2023 11:51 AM EDT) Timi Person MD NURSING TREATMENT O RDERABLES - BLOOD ADMIN * POC, GLUCOSE (11/05/2023 9:26 AM EDT) Glucometer, POC 198 65 - 199 mg/dL 11/05/2023 9:26 AM EDT [facility] Comment:Supplemental ranges: <140 mg/dL before meals <180 mg/dL all other times of the day. Blood CAPILLARY BLOOD / Unknown 11/05/2023 9:26 AM EDT 11/05/2023 9:26 AM EDT Timi Person MD POINT OF CARE TEST ORDERABLES [facility] [place] [address] * POC, GLUCOSE (11/05/2023 5:50 AM EDT) Glucometer, POC 162 65 - 199 mg/dL 11/05/2023 5:50 AM EDT [facility] Comment:Supplemental ranges: <140 mg/dL before meals <180 mg/dL all other times of the day. Blood CAPILLARY BLOOD / Unknown 11/05/2023 5:50 AM EDT 11/05/2023 5:50 AM EDT Timi Person MD POINT OF CARE TEST ORDERABLES [facility] [place] [address] * Potassium (11/05/2023 4:51 AM EDT) Potassium 4.0 3.5 - 5.0 mMol/L 11/05/2023 5:35 AM EDT [facility] Blood VENOUS BLOOD SPECIMEN / Unknown IP Care Team Draw / Unknown 11/05/2023 4:51 AM EDT 11/05/2023 5:05 AM EDT Timi Person MD CHEMISTRY ORDERABLE S Performing Organization Address City/[facility] [address]/ZIP Co de Phone Number [facility] [place] [address] * (ABNORMAL) CK (11/05/2023 4:51 AM EDT) Creatine Kinase 2,283(H) 0 - 200 unit/L 11/05/2023 5:47 AM EDT [facility] Blood VENOUS BLOOD SPECIMEN / Unknown IP Care Team Draw / Unknown 11/05/2023 4:51 AM EDT 11/05/2023 5:05 AM EDT Timi Person MD CHEMISTRY ORDERABLE S Performing Organization Address City/[facility] [address]/ZIP Co de Phone Number [facility] [place] [address] * POC, GLUCOSE (11/05/2023 4:18 AM EDT) Glucometer, POC 169 65 - 199 mg/dL 11/05/2023 4:18 AM EDT [facility] Comment:Supplemental ranges: <140 mg/dL before meals <180 mg/dL all other times of the day. Blood CAPILLARY BLOOD / Unknown 11/05/2023 4:18 AM EDT 11/05/2023 4:18 AM EDT Timi Person MD POINT OF CARE TEST ORDERABLES [facility] [place] [address] * (ABNORMAL) Blood Gas, Arterial POC (11/05/2023 2:14 AM EDT) pH, Arterial 7.38 7.35 - 7.45 11/05/2023 2:15 AM EDT [facility] PCO2, Arterial 34(L) 35 - 45 mmHg 11/05/2023 2:15 AM EDT [facility] PO2, Arterial 108(H) 85 - 104 mmHg 11/05/2023 2:15 AM EDT [facility] Bicarbonate, Arterial 19.8(L) 20.0 - 26.0 mmol/L 11/05/2023 2:15 AM EDT [facility] Base Excess, Arterial -5.3(L) -3.0 - 3.0 mmol/L 11/05/2023 2:15 AM EDT [facility] Hemoglobin, Arterial 7.0(L) 13.7 - 16.5 g/dL 11/05/2023 2:15 AM EDT [facility] Oxyhemoglobin, Arterial 96.6 94.0 - 97.0 % 11/05/2023 2:15 AM EDT [facility] Carboxyhemoglobin , Arterial 0.1 % 11/05/2023 2:15 AM EDT [facility] Comment: Nonsmokers: 0.5-1.5% COHB ?? Smokers: Variable ??but usually less than 10% ?? Toxic: 20-30% COHB ?? Lethal: Greater than 60% COHB Methemoglobin, Arterial 0.3 <=1.5 % 11/05/2023 2:15 AM EDT [facility] Sodium, Arterial 139 135 - 145 mmol/L 11/05/2023 2:15 AM EDT [facility] Potassium, Arterial 4.0 3.5 - 5.0 mmol/L 11/05/2023 2:15 AM EDT [facility] Chloride, Arterial 104 98 - 107 mmol/L 11/05/2023 2:15 AM EDT [facility] Lactate, Arterial 1.1 0.5 - 2.2 mmol/L 11/05/2023 2:15 AM EDT [facility] Fraction of Inspired Oxygen 40 % 11/05/2023 2:15 AM EDT [facility] PF Ratio 270 Ratio 11/05/2023 2:15 AM EDT [facility] Comment:PF ratio calculated using the non-temperature corrected pO2 result. IONIZED CALCIUM, ARTERIAL 1.03(L) 1.15 - 1.33 mmol/L 11/05/2023 2:15 AM EDT [facility] Glucose, Arterial 151 65 - 199 mg/dL 11/05/2023 2:15 AM EDT [facility] Comment:Glucose Concentratio n >=200 mg/dL plus symptoms is consistent with Diabetes Mellitus. Blood ARTERIAL BLOOD / Unknown 11/05/2023 2:14 AM EDT 11/05/2023 2:15 AM EDT Timi Person MD POINT OF CARE TEST ORDERABLES [facility] [place] [address] * (ABNORMAL) CBC (with Diff) (11/05/2023 12:08 AM EDT) White Blood Cell 11.20(H) 4.00 - 9.50 x10(3)/mc L 11/05/2023 12:27 AM EDT [facility] Red Blood Cell 3.47(L) 4.58 - 5.54 x10(6)/mc L 11/05/2023 12:27 AM EDT [facility] Hemoglobin 7.3(L) 13.7 - 16.5 g/dL 11/05/2023 12:27 AM EDT [facility] Hematocrit 23.0(L) 40.5 - 48.5 % 11/05/2023 12:27 AM [facility] Mean Cell Volume 66.3(L) 82.9 - 93.1 fL 11/05/2023 12:27 AM [facility] Mean Cell Hemoglobin 21.0(L) 27.5 - 32.1 pg 11/05/2023 12:27 AM [facility] Mean Cell Hemoglobin Concentration 31.7(L) 32.0 - 35.7 g/dL 11/05/2023 12:27 AM [facility] Platelet 242 145 - 357 x10(3)/mc L 11/05/2023 12:27 AM [facility] Mean Platelet Volume 11.1 7.6 - 12.9 fL 11/05/2023 12:27 AM [facility] RDW Standard Deviation 43.4 36.0 - 45.0 fL 11/05/2023 12:27 AM [facility] RDW coefficient of variation 18.5(H) 11.4 - 13.8 % 11/05/2023 12:27 AM [facility] NRBC% auto 0.9 % 11/05/2023 12:27 AM [facility] NRBC Absolute 0.10(H) 0.00 - 0.00 x10(3)/mc L 11/05/2023 12:27 AM [facility] Neutrophil % 82.7 % 11/05/2023 12:27 AM [facility] Neutrophil Absolute (ANC) - Automated 9.25(H) 1.70 - 6.10 x10(3)/mc L 11/05/2023 12:27 AM [facility] Lymph % 6.5 % 11/05/2023 12:27 AM [facility] Lymph Absolute 0.73(L) 0.90 - 3.20 x10(3)/mc L 11/05/2023 12:27 AM [facility] Monocyte % 6.6 % 11/05/2023 12:27 AM EDT [facility] Monocyte Absolute 0.74 0.30 - 0.90 x10(3)/mc L 11/05/2023 12:27 AM EDT [facility] Eos % 2.5 % 11/05/2023 12:27 AM EDT [facility] Eos Absolute 0.28 0.00 - 0.40 x10(3)/mc L 11/05/2023 12:27 AM EDT [facility] Basophil % 0.4 % 11/05/2023 12:27 AM EDT [facility] Baso Absolute 0.05 0.00 - 0.10 x10(3)/mc L 11/05/2023 12:27 AM EDT [facility] Immature Gran % 1.3 % 12:27 AM EDT [facility] Immature Gran Absolute 0.15(H) 0.00 - 0.04 x10(3)/mc L 11/05/2023 12:27 AM EDT [facility] Blood VENOUS BLOOD SPECIMEN / Unknown IP Care Team Draw / Unknown 11/05/2023 12:08 AM EDT 11/05/2023 12:13 AM EDT Timi Person MD HEMATOLOGY ORDERABL ES [facility] [place] [address] * (ABNORMAL) Basic Metabolic Panel (11/05/2023 12:08 AM EDT) Glucose 171 65 - 199 mg/dL 11/05/2023 1:09 AM EDT [facility] Comment:Glucose Concentratio n >=200 mg/dL plus symptoms is consistent with Diabetes Mellitus. Blood Urea Nitrogen 75(H) 10 - 20 mg/dL 11/05/2023 1:09 AM EDT [facility] Creatinine 5.90(H) 0.80 - 1.50 mg/dL 11/05/2023 1:09 AM [facility] Sodium 141 135 - 145 mMol/L 11/05/2023 1:09 AM [facility] Potassium 3.7 3.5 - 5.0 mMol/L 11/05/2023 1:09 AM [facility] Chloride 102 98 - 107 mMol/L 11/05/2023 1:09 AM [facility] Carbon Dioxide 20(L) 22 - 31 mMol/L 11/05/2023 1:[facility] Anion Gap 19(H) 5 - 15 mMol/L 11/05/2023 1:09 AM [facility] Calcium 8.1(L) 8.5 - 10.5 mg/dL 11/05/2023 1:09 AM [facility] Est Glomerular Filtration Rate - Male 11 mL/min/1. 73 m?? 11/05/2023 1:09 AM [facility] Comment: This patient's estimated GFR was [...] EDT Timi Person MD CHEMISTRY ORDERABLE S [facility] [place] [address] * (ABNORMAL) Phosphorus (11/05/2023 12:08 AM EDT) Phosphorus 10.0(HHH) 2.5 - 4.5 mg/dL 11/05/2023 1:09 AM EDT [facility] Blood VENOUS BLOOD SPECIMEN / Unknown IP Care Team Draw / Unknown 11/05/2023 12:08 AM EDT 11/05/2023 12:13 AM EDT Timi Person MD CHEMISTRY ORDERABLE S [facility] [place] [address] * Magnesium (11/05/2023 12:08 AM EDT) [facility] Magnesium 1.01 0.69 - 1.07 mMol/L 11/05/2023 12:51 AM EDT [facility] Blood VENOUS BLOOD SPECIMEN / Unknown IP Care Team Draw / Unknown 11/05/2023 12:08 AM EDT 11/05/2023 12:13 AM EDT Timi Person MD CHEMISTRY ORDERABLE S [facility] [place] [address] * (ABNORMAL) CK (11/05/2023 12:08 AM EDT) [facility] Creatine Kinase 2,610(H) 0 - 200 unit/L 11/05/2023 1:09 AM EDT [facility] Blood VENOUS BLOOD SPECIMEN / Unknown IP Care Team Draw / Unknown 11/05/2023 12:08 AM EDT 11/05/2023 12:13 AM EDT Timi Person MD CHEMISTRY ORDERABLE S [facility] [place] [address] * Vancomycin Level, Random (11/05/2023 12:08 AM EDT) Pathologist [facility] Vancomycin, Random 17.9 mg/L 2023 12:51 AM EDT [facility] Comment:This level is for de termination of the patient's vancomycin zzyw-rhjpw-knu-curve (AUC) value. Contact the inpatient pharmacy for interpretation. Blood VENOUS BLOOD SPECIMEN / Unknown IP Care Team Draw / Unknown 11/05/2023 12:08 AM EDT 11/05/2023 12:13 AM EDT Timi Person MD CHEMISTRY ORDERABLE S Performing Organization Address [facility] [address]/ZIP Co de Phone Number [facility] [place] [address] * POC, GLUCOSE (11/05/2023 12:07 AM EDT) Glucometer, POC 182 65 - 199 mg/dL 11/05/2023 12:08 AM EDT [facility] Comment:Supplemental ranges: <140 mg/dL before meals <180 mg/dL all other times of the day. Blood CAPILLARY BLOOD / Unknown 11/05/2023 12:07 AM EDT 11/05/2023 12:08 AM EDT Timi Person MD POINT OF CARE TEST ORDERABLES Performing Organization Address [facility] [address]/ZIP Co de Phone Number [facility] [place] [address] * Scan Doc: Lab (11/05/2023 12:00 AM EDT) Narrative 11/05/2023 12:00 AM EDT Ordered by an unspecified provider. Scanning Provider MEDIA MGR SCAN EXT O RDR/RSLT * POC, GLUCOSE (11/04/2023 10:13 PM EDT) Glucometer, POC 151 65 - 199 mg/dL 11/04/2023 10:13 PM EDT [facility] Comment:Supplemental ranges: <140 mg/dL before meals <180 mg/dL all other times of the day. Blood CAPILLARY BLOOD / Unknown 11/04/2023 10:13 PM EDT 11/04/2023 10:13 PM EDT Timi Person MD POINT OF CARE TEST ORDERABLES [facility] [place] [address] * POC, GLUCOSE (11/04/2023 8:19 PM EDT) Glucometer, POC 161 65 - 199 mg/dL 11/04/2023 8:19 PM EDT [facility] Comment:Supplemental ranges: <140 mg/dL before meals <180 mg/dL all other times of the day. Blood CAPILLARY BLOOD / Unknown 11/04/2023 8:19 PM EDT 11/04/2023 8:19 PM EDT Timi Person MD POINT OF CARE TEST ORDERABLES [facility] [place] [address] * Potassium (11/04/2023 5:15 PM EDT) Potassium 4.0 3.5 - 5.0 mMol/L 11/04/2023 6:16 PM EDT [facility] Blood VENOUS BLOOD SPECIMEN / Unknown IP Care Team Draw / Unknown 11/04/2023 5:15 PM EDT 11/04/2023 5:20 PM EDT Timi Person MD CHEMISTRY ORDERABLE S [facility] [place] [address] * (ABNORMAL) CK (11/04/2023 5:15 PM EDT) Creatine Kinase 3,171(H) 0 - 200 unit/L 11/04/2023 6:34 PM EDT [facility] Blood VENOUS BLOOD SPECIMEN / Unknown IP Care Team Draw / Unknown 11/04/2023 5:15 PM EDT 11/04/2023 5:20 PM EDT Timi Person MD CHEMISTRY ORDERABLE S [facility] [place] [address] * (ABNORMAL) Blood Gas, Arterial POC (11/04/2023 4:45 PM EDT) pH, Arterial 7.38 7.35 - 7.45 11/04/2023 4:47 PM EDT [facility] PCO2, Arterial 35 35 - 45 mmHg 11/04/2023 4:47 PM EDT [facility] PO2, Arterial 89 85 - 104 mmHg 11/04/2023 4:47 PM EDT [facility] Bicarbonate, Arterial 20.4 20.0 - 26.0 mmol/L 11/04/2023 4:47 PM EDT [facility] Base Excess, Arterial -4.6(L) -3.0 - 3.0 mmol/L 11/04/2023 4:47 PM EDT [facility] Hemoglobin, Arterial 9.3(L) 13.7 - 16.5 g/dL 11/04/2023 4:47 PM EDT [facility] Oxyhemoglobin, Arterial 95.1 94.0 - 97.0 % 11/04/2023 4:47 PM EDT [facility] Carboxyhemoglobin , Arterial 0.2 % 11/04/2023 4:47 PM EDT [facility] Comment: Nonsmokers: 0.5-1.5% COHB ?? Smokers: Variable ??but usually less than 10% ?? Toxic: 20-30% COHB ?? Lethal: Greater than 60% COHB Methemoglobin, Arterial 0.3 <=1.5 % 11/04/2023 4:47 PM EDT [facility] Sodium, Arterial 137 135 - 145 mmol/L 11/04/2023 4:47 PM EDT [facility] Potassium, Arterial 4.0 3.5 - 5.0 mmol/L 11/04/2023 4:47 PM EDT [facility] Chloride, Arterial 102 98 - 107 mmol/L 11/04/2023 4:47 PM EDT [facility] Lactate, Arterial 1.2 0.5 - 2.2 mmol/L 11/04/2023 4:47 PM EDT [facility] Fraction of Inspired Oxygen 40 % 11/04/2023 4:47 PM EDT [facility] PF Ratio 223 Ratio 11/04/2023 4:47 PM EDT [facility] Comment:PF ratio calculated using the non-temperature corrected pO2 result. IONIZED CALCIUM, ARTERIAL 1.03(L) 1.15 - 1.33 mmol/L 11/04/2023 4:47 PM EDT [facility] Glucose, Arterial 153 65 - 199 mg/dL 11/04/2023 4:47 PM EDT [facility] Comment:Glucose Concentratio n >=200 mg/dL plus symptoms is consistent with Diabetes Mellitus. Blood ARTERIAL BLOOD / Unknown 11/04/2023 4:45 PM EDT 11/04/2023 4:47 PM EDT Timi Person MD POINT OF CARE TEST ORDERABLES [facility] [place] [address] * HCV Reflex Hold (11/04/2023 4:36 PM EDT) HCV Hold Hold for Add-on 11/04/2023 6:01 PM EDT [facility] Blood VENOUS BLOOD SPECIMEN / Unknown IP Care Team Draw / Unknown 11/04/2023 4:36 PM EDT 11/04/2023 4:55 PM EDT Timi Person MD CHEMISTRY ORDERABLE S [facility] [place] [address] * Hepatitis C Antibody with Reflex (11/04/2023 4:36 PM EDT) Hepatitis C Antibody Negative Negative 11/04/2023 5:57 PM EDT [facility] Blood VENOUS BLOOD SPECIMEN / Unknown IP Care Team Draw / Unknown 11/04/2023 4:36 PM EDT 11/04/2023 4:55 PM EDT Timi Person MD CHEMISTRY ORDERABLE S [facility] [place] [address] * Hepatitis B Core Antibody, IgM (11/04/2023 4:36 PM EDT) Hepatitis B Core IgM Negative Negative 11/04/2023 5:57 PM EDT [facility] Blood VENOUS BLOOD SPECIMEN / Unknown IP Care Team Draw / Unknown 11/04/2023 4:36 PM EDT 11/04/2023 4:55 PM EDT Timi Person MD CHEMISTRY ORDERABLE S [facility] [place] [address] * Hepatitis B Surface Antigen (11/04/2023 4:36 PM EDT) Hepatitis B Surface Antigen Negative Negative 11/04/2023 5:57 PM EDT [facility] Blood VENOUS BLOOD SPECIMEN / Unknown IP Care Team Draw / Unknown 11/04/2023 4:36 PM EDT 11/04/2023 4:55 PM EDT Timi Person MD CHEMISTRY ORDERABLE S [facility] [place] [address] * (ABNORMAL) Vitamin D, 25-Hydroxy (11/04/2023 4:36 PM EDT) Vitamin D Total 25 OH 9(L) 21 - 100 ng/ml 11/04/2023 5:57 PM EDT [facility] Vitamin D Total 25 OH Interp Deficient 11/04/2023 5:57 PM EDT [facility] Blood VENOUS BLOOD SPECIMEN / Unknown IP Care Team Draw / Unknown 11/04/2023 4:36 PM EDT 11/04/2023 4:55 PM EDT Timi Person MD CHEMISTRY ORDERABLE S [facility] [place] [address] * (ABNORMAL) PTH (11/04/2023 4:36 PM EDT) Parathyroid Hormone 239(H) 15 - 65 pg/mL 11/04/2023 5:36 PM EDT [facility] Blood VENOUS BLOOD SPECIMEN / Unknown IP Care Team Draw / Unknown 11/04/2023 4:36 PM EDT 11/04/2023 4:55 PM EDT Timi Person MD CHEMISTRY ORDERABLE S [facility] [place] [address] * (ABNORMAL) Ferritin (11/04/2023 4:36 PM EDT) Ferritin 835(H) 31 - 409 ng/ml 11/04/2023 5:57 PM EDT [facility] Blood VENOUS BLOOD SPECIMEN / Unknown IP Care Team Draw / Unknown 11/04/2023 4:36 PM EDT 11/04/2023 4:55 PM EDT Timi Person MD CHEMISTRY ORDERABLE S [facility] [place] [address] * Prepare RBC (11/04/2023 2:03 PM EDT) Status Information Transfused [facility] Product Identification RBC [facility] Unit Number [id number] [facility] Product Code L6043X13 [facility] Unit Blood Type OPOS [facility] Specimen Expiration Date [facility] Volulme 350 [facility] Issue Date / Time [id number] [facility] Blood 11/03/2023 11: 44 PM EDT Timi Person MD BLOOD BANK PRODUCT ORDERABLES [facility] [place] [place] [address] * (ABNORMAL) U Albumin/Cre Ratio (11/04/2023 11:54 AM EDT) Albumin, Urine 389.8 mg/L 11/04/2023 3:27 PM EDT [facility] Creatinine, Urine 66 mg/dL 024 3:27 PM EDT [facility] Albumin / Creatinine Ratio, Urine 591(H) 0 - 29 mcg/mg Cr 11/04/2023 3:27 PM EDT [facility] Comment: Reference Ranges: ?? <30 mcg/mg: [...] Diabetes-2016; KDIGO: Kidney International Supplements (2012) 2 ??[phone] Urine URINE SPECIMEN / Unknown Non Blood Collection / Unknown 11/04/2023 11:54 AM EDT 11/04/2023 12:31 PM EDT Timi Person MD URINE ORDERABLES [facility] [place] [address] * (ABNORMAL) Protein/Creatinine Ratio, urine (11/04/2023 11:54 AM EDT) Protein, Urine 82(H) 0 - 12 mg/dL 11/04/2023 2:58 PM EDT [facility] Creatinine, Urine 66 mg/dL 11/04/2023 2:58 PM EDT [facility] Protein / Creatinine Ratio, Urine 1.2 ratio 11/04/2023 2:58 PM EDT [facility] Urine URINE SPECIMEN / Unknown Non Blood Collection / Unknown 11/04/2023 11:54 AM EDT 11/04/2023 12:31 PM EDT Timi Person MD URINE ORDERABLES Performing Organization Address City/[facility] [address]/ZIP Co de Phone Number [facility] [place] [address] * Sodium, urine, random (11/04/2023 11:54 AM EDT) Sodium, Urine 50 mMol/L 11/04/2023 3:28 PM EDT [facility] Urine URINE SPECIMEN / Unknown Non Blood Collection / Unknown 11/04/2023 11:54 AM EDT 11/04/2023 12:31 PM EDT Timi Person MD URINE ORDERABLES [facility] [place] [address] * (ABNORMAL) Urinalysis Microscopic (11/04/2023 11:54 AM EDT) RBC, Urine 4(H) 0 - 3 /HPF 11/04/2023 1:44 PM EDT [facility] WBC, Urine 1 0 - 3 /HPF 11/04/2023 1:44 PM EDT [facility] Squamous Epithelial Cells, Urine 18(H) 0 - 5 /HPF 11/04/2023 1:44 PM EDT [facility] Hyaline Casts, Urine 1 0 - 2 /LPF 11/04/2023 1:44 PM EDT [facility] Granular Casts, Urine 2(H) <=0 /LPF 11/04/2023 1:44 PM EDT [facility] Cell Cast, Urine <1(H) <=0 /LPF 11/04/19 24 1:44 PM EDT [facility] Comment 11/04/2023 1:44 PM EDT [facility] Comment:Interpret results wi th caution, microscopic results are from a suboptimal specimen. Bacteria, Urine Moderate( A) None /HPF 11/04/2023 1:44 PM EDT [facility] Urine URINE SPECIMEN OBTAINED VIA INDWELLING URINARY CATHETER / Unknown Non Blood Collection / Unknown 11/04/2023 11:54 AM EDT 11/04/2023 12:31 PM EDT Timi Person MD URINE ORDERABLES [facility] [place] [address] * Urinalysis Microscopic Exam (11/04/2023 11:54 AM EDT) Urine Non Blood Collection / Unknown 11/04/2023 11:54 AM EDT 11/04/2023 12:31 PM EDT Timi Person MD URINE ORDERABLES [facility] [place] [address] * (ABNORMAL) Urinalysis Dipstick (11/04/2023 11:54 AM EDT) Glucose, Urine Dipstick 100 mg/dL(A) Negative 11/04/2023 1:[facility] Protein, Urine Dipstick 100 mg/dL(A) Negative 11/04/2023 1:44 PM [facility] Bilirubin, Urine Dipstick Negative Negative 11/04/2023 1:44 PM [facility] Comment:Clinical correlation required for positive Urine Bilirubin results as false positive may occur with some drugs and drug related products. If a false positive is suspected a serum total bilirubin should be considered if clinically indicated. Urobilinogen, Urine Dipstick Normal Normal, 0.2 mg/dL, 1.0 mg/dL 11/04/2023 1:44 PM [facility] pH, Urine (dipstick) 5.5 5.0 - 8.0 11/04/2023 1:44 PM [facility] Blood, Urine Dipstick Trace(A) Negative 11/04/2023 1:44 PM [facility] Ketone, Urine Dipstick Negative Negative 11/04/2023 1:44 PM [facility] Nitrite, Urine Dipstick Negative Negative 11/04/2023 1:44 PM [facility] Leukocytes, Urine Dipstick Negative Negative 11/04/2023 1:44 PM [facility] Specific [place] Urine Automated 1.015 1.005 - 1.030 11/04/2023 1:44 PM [facility] Appearance, Urine Dipstick Turbid(A) Clear 11/04/2023 1:44 PM [facility] Color, Urine Dipstick Yellow Yellow, Dark Yellow 11/04/2023 1:44 PM [facility] CULTURE ADDED? 11/04/2023 1:44 PM [facility] Urine Non Blood Collection / Unknown 11/04/2023 11:54 AM EDT 11/04/2023 12:31 PM EDT Timi Person MD URINE ORDERABLES [facility] [place] [address] * Creatinine, urine, random (11/04/2023 11:54 AM EDT) Creatinine, Urine 64 mg/dL 11/04/2023 1:44 PM EDT [facility] Urine URINE SPECIMEN / Unknown Non Blood Collection / Unknown 11/04/2023 11:54 AM EDT 11/04/2023 12:31 PM EDT Timi Person MD URINE ORDERABLES Performing Organization Address City/[facility] [address]/ZIP Co de Phone Number [facility] [place] [address] * Urea nitrogen, urine, random (11/04/2023 11:54 AM EDT) Urea Nitrogen, Urine 194 mg/dL 11/04/2023 1:44 PM EDT [facility] Urine URINE SPECIMEN / Unknown Non Blood Collection / Unknown 11/04/2023 11:54 AM EDT 11/04/2023 12:31 PM EDT Timi Person MD URINE ORDERABLES [facility] [place] [address] * (ABNORMAL) Blood Gas, Arterial POC (11/04/2023 11:39 AM EDT) pH, Arterial 7.40 7.35 - 7.45 11/04/2023 11:40 AM EDT [facility] PCO2, Arterial 35 35 - 45 mmHg 11/04/2023 11:40 AM EDT [facility] PO2, Arterial 91 85 - 104 mmHg 11/04/2023 11:40 AM [facility] Bicarbonate, Arterial 20.9 20.0 - 26.0 mmol/L 11/04/2023 11:40 AM [facility] Base Excess, Arterial -3.9(L) -3.0 - 3.0 mmol/L 11/04/2023 11:40 AM [facility] Hemoglobin, Arterial 7.5(L) 13.7 - 16.5 g/dL 11/04/2023 11:40 AM [facility] Oxyhemoglobin, Arterial 95.3 94.0 - 97.0 % 11/04/2023 11:40 AM [facility] Carboxyhemoglobin , Arterial 0.4 % 11/04/2023 11:40 AM [facility] Comment: Nonsmokers: 0.5-1.5% COHB ?? Smokers: Variable ??but usually less than 10% ?? Toxic: 20-30% COHB ?? Lethal: Greater than 60% COHB Methemoglobin, Arterial 0.3 <=1.5 % 11/04/2023 11:40 AM [facility] Sodium, Arterial 137 135 - 145 mmol/L 11/04/2023 11:40 AM [facility] Potassium, Arterial 3.5 3.5 - 5.0 mmol/L 11/04/2023 11:40 AM [facility] Chloride, Arterial 102 98 - 107 mmol/L 11/04/2023 11:40 AM [facility] Lactate, Arterial 1.2 0.5 - 2.2 mmol/L 11/04/2023 11:40 AM [facility] Fraction of Inspired Oxygen 40 % 11/04/2023 11:40 AM [facility] PF Ratio 228 Ratio 11/04/2023 11:40 AM [facility] Comment:PF ratio calculated using the non-temperature corrected pO2 result. IONIZED CALCIUM, ARTERIAL 0.97(L) 1.15 - 1.33 mmol/L 11/04/2023 11:40 AM EDT [facility] Glucose, Arterial 146 65 - 199 mg/dL 11/04/2023 11:40 AM EDT [facility] Comment:Glucose Concentratio n >=200 mg/dL plus symptoms is consistent with Diabetes Mellitus. Blood ARTERIAL BLOOD / Unknown 11/04/2023 11:39 AM EDT 11/04/2023 11:40 AM EDT Timi Person MD POINT OF CARE TEST ORDERABLES [facility] [place] [address] * (ABNORMAL) T3 Total (11/04/2023 9:46 AM EDT) T3 Total 38(L) 80 - 200 ng/dL 11/04/2023 3:04 PM EDT [facility] Blood VENOUS BLOOD SPECIMEN / Unknown IP Care Team Draw / Unknown 11/04/2023 9:46 AM EDT 11/04/2023 9:50 AM EDT Timi Person MD CHEMISTRY ORDERABLE S Performing Organization Address City/[facility] [address]/ZIP Co de Phone Number [facility] [place] [address] * (ABNORMAL) T4 Total (11/04/2023 9:46 AM EDT) T4 Total 1.8(L) 4.6 - 7.9 mcg/dL 11/04/2023 3:04 PM EDT [facility] Blood VENOUS BLOOD SPECIMEN / Unknown IP Care Team Draw / Unknown 11/04/2023 9:46 AM EDT 11/04/2023 9:50 AM EDT Timi Person MD CHEMISTRY ORDERABLE S [facility] [place] [address] * (ABNORMAL) TSH (11/04/2023 9:46 AM EDT) Thyroid Stimulating Hormone 7.14(H) 0.27 - 4.20 mcIU/mL 11/04/2023 3:04 PM EDT [facility] Blood VENOUS BLOOD SPECIMEN / Unknown IP Care Team Draw / Unknown 11/04/2023 9:46 AM EDT 11/04/2023 9:50 AM EDT Timi Person MD CHEMISTRY ORDERABLE S [facility] [place] [address] * (ABNORMAL) Uric acid (11/04/2023 9:46 AM EDT) Uric Acid 12.8(H) 3.5 - 8.5 mg/dL 11/04/2023 3:04 PM EDT [facility] Blood VENOUS BLOOD SPECIMEN / Unknown IP Care Team Draw / Unknown 11/04/2023 9:46 AM EDT 11/04/2023 9:50 AM EDT Timi Person MD CHEMISTRY ORDERABLE S [facility] [place] [address] * (ABNORMAL) CK (11/04/2023 9:46 AM EDT) Creatine Kinase 3,650(H) 0 - 200 unit/L 11/04/2023 3:27 PM EDT [facility] Blood VENOUS BLOOD SPECIMEN / Unknown IP Care Team Draw / Unknown 11/04/2023 9:46 AM EDT 11/04/2023 9:50 AM EDT Timi Person MD CHEMISTRY ORDERABLE S [facility] [place] [address] * (ABNORMAL) Iron and TIBC (11/04/2023 9:46 AM EDT) Iron 14(L) 45 - 160 mcg/dL 11/04/2023 3:04 PM EDT [facility] TIBC 146(L) 250 - 450 mcg/dL 11/04/2023 3:04 PM EDT [facility] Iron Saturation 10(L) 20 - 50 % 3:04 PM EDT [facility] Blood VENOUS BLOOD SPECIMEN / Unknown IP Care Team Draw / Unknown 11/04/2023 9:46 AM EDT 11/04/2023 9:50 AM EDT Timi Person MD CHEMISTRY ORDERABLE S Performing Organization Address City/[facility] [address]/ZIP Co de Phone Number [facility] [place] [address] * Potassium (11/04/2023 9:46 AM EDT) Potassium 3.7 3.5 - 5.0 mMol/L 11/04/2023 10:29 AM EDT [facility] Blood VENOUS BLOOD SPECIMEN / Unknown IP Care Team Draw / Unknown 11/04/2023 9:46 AM EDT 11/04/2023 9:50 AM EDT Timi Person MD CHEMISTRY ORDERABLE S [facility] [place] [address] * (ABNORMAL) Blood Gas, Arterial POC (11/04/2023 8:23 AM EDT) pH, Arterial 7.36 7.35 - 7.45 11/04/2023 8:25 AM EDT [facility] PCO2, Arterial 40 35 - 45 mmHg 11/04/2023 8:25 AM EDT [facility] PO2, Arterial 86 85 - 104 mmHg 11/04/2023 8:25 AM [facility] Bicarbonate, Arterial 21.9 20.0 - 26.0 mmol/L 11/04/2023 8:25 AM [facility] Base Excess, Arterial -3.6(L) -3.0 - 3.0 mmol/L 11/04/2023 8:25 AM [facility] Hemoglobin, Arterial 7.8(L) 13.7 - 16.5 g/dL 11/04/2023 8:25 AM [facility] Oxyhemoglobin, Arterial 94.1 94.0 - 97.0 % 11/04/2023 8:25 AM [facility] Carboxyhemoglobin , Arterial 0.6 % 11/04/2023 8:25 AM [facility] Comment: Nonsmokers: 0.5-1.5% COHB ?? Smokers: Variable ??but usually less than 10% ?? Toxic: 20-30% COHB ?? Lethal: Greater than 60% COHB Methemoglobin, Arterial 0.3 <=1.5 % 11/04/2023 8:25 AM [facility] Sodium, Arterial 136 135 - 145 mmol/L 11/04/2023 8:25 AM [facility] Potassium, Arterial 3.8 3.5 - 5.0 mmol/L 11/04/2023 8:25 AM [facility] Chloride, Arterial 102 98 - 107 mmol/L 11/04/2023 8:25 AM [facility] Lactate, Arterial 1.2 0.5 - 2.2 mmol/L 11/04/2023 8:25 AM [facility] Fraction of Inspired Oxygen 40 % 11/04/2023 8:25 AM [facility] PF Ratio 215 Ratio 11/04/2023 8:25 AM [facility] Comment:PF ratio calculated using the non-temperature corrected pO2 result. IONIZED CALCIUM, ARTERIAL 0.96(L) 1.15 - 1.33 mmol/L 11/04/2023 8:25 AM EDT [facility] Glucose, Arterial 171 65 - 199 mg/dL 11/04/2023 8:25 AM EDT [facility] Comment:Glucose Concentratio n >=200 mg/dL plus symptoms is consistent with Diabetes Mellitus. Blood ARTERIAL BLOOD / Unknown 11/04/2023 8:23 AM EDT 11/04/2023 8:25 AM EDT Timi Person MD POINT OF CARE TEST ORDERABLES Performing Organization Address City/[facility] [address]/ZIP Co de Phone Number [facility] [place] [address] * POC, GLUCOSE (11/04/2023 6:00 AM EDT) Glucometer, POC 129 65 - 199 mg/dL 11/04/2023 6:00 AM EDT [facility] Comment:Supplemental ranges: <140 mg/dL before meals <180 mg/dL all other times of the day. Blood CAPILLARY BLOOD / Unknown 11/04/2023 6:00 AM EDT 11/04/2023 6:00 AM EDT Timi Person MD POINT OF CARE TEST ORDERABLES Performing Organization Address City/[facility] [address]/ZIP Co de Phone Number [facility] [place] [address] * (ABNORMAL) Blood Gas, Arterial POC (11/04/2023 3:32 AM EDT) pH, Arterial 7.40 7.35 - 7.45 11/04/2023 3:33 AM EDT [facility] PCO2, Arterial 34(L) 35 - 45 mmHg 11/04/2023 3:33 AM EDT [facility] PO2, Arterial 102 85 - 104 mmHg 11/04/2023 3:33 AM EDT [facility] Bicarbonate, Arterial 20.9 20.0 - 26.0 mmol/L 11/04/2023 3:[facility] Base Excess, Arterial -3.9(L) -3.0 - 3.0 mmol/L 11/04/2023 3:33 AM [facility] Hemoglobin, Arterial 7.4(L) 13.7 - 16.5 g/dL 11/04/2023 3:33 AM [facility] Oxyhemoglobin, Arterial 96.0 94.0 - 97.0 % 11/04/2023 3:33 AM [facility] Carboxyhemoglobin , Arterial 0.8 % 11/04/2023 3:33 AM [facility] Comment: Nonsmokers: 0.5-1.5% COHB ?? Smokers: Variable ??but usually less than 10% ?? Toxic: 20-30% COHB ?? Lethal: Greater than 60% COHB Methemoglobin, Arterial 0.3 <=1.5 % 11/04/2023 3:33 AM [facility] Sodium, Arterial 137 135 - 145 mmol/L 11/04/2023 3:33 AM [facility] Potassium, Arterial 3.6 3.5 - 5.0 mmol/L 11/04/2023 3:33 AM [facility] Chloride, Arterial 101 98 - 107 mmol/L 11/04/2023 3:33 AM [facility] Lactate, Arterial 1.3 0.5 - 2.2 mmol/L 11/04/2023 3:33 AM [facility] Fraction of Inspired Oxygen 40 % 11/04/2023 3:33 AM [facility] PF Ratio 255 Ratio 11/04/2023 3:33 AM [facility] Comment:PF ratio calculated using the non-temperature corrected pO2 result. IONIZED CALCIUM, ARTERIAL 0.99(L) 1.15 - 1.33 mmol/L 11/04/2023 3:33 AM [facility] Glucose, Arterial 155 65 - 199 mg/dL 11/04/2023 3:33 AM EDT [facility] Comment:Glucose Concentratio n >=200 mg/dL plus symptoms is consistent with Diabetes Mellitus. Blood ARTERIAL BLOOD / Unknown 11/04/2023 3:32 AM EDT 11/04/2023 3:33 AM EDT Timi Person MD POINT OF CARE TEST ORDERABLES [facility] [place] [address] * POC, GLUCOSE (11/04/2023 3:31 AM EDT) Glucometer, POC 172 65 - 199 mg/dL 11/04/2023 3:31 AM EDT [facility] Comment:Supplemental ranges: <140 mg/dL before meals <180 mg/dL all other times of the day. Blood CAPILLARY BLOOD / Unknown 11/04/2023 3:31 AM EDT 11/04/2023 3:31 AM EDT Timi Person MD POINT OF CARE TEST ORDERABLES Performing Organization Address City/[facility] [address]/ZIP Co de Phone Number [facility] [place] [address] * Potassium (11/04/2023 3:29 AM EDT) Potassium 3.7 3.5 - 5.0 mMol/L 11/04/2023 3:59 AM EDT [facility] Blood VENOUS BLOOD SPECIMEN / Unknown IP Care Team Draw / Unknown 11/04/2023 3:29 AM EDT 11/04/2023 3:36 AM EDT Timi Person MD CHEMISTRY ORDERABLE S [facility] [place] [address] * POC, GLUCOSE (11/04/2023 1:41 AM EDT) Glucometer, POC 174 65 - 199 mg/dL 11/04/2023 1:41 AM EDT [facility] Comment:Supplemental ranges: <140 mg/dL before meals <180 mg/dL all other times of the day. Blood CAPILLARY BLOOD / Unknown 11/04/2023 1:41 AM EDT 11/04/2023 1:41 AM EDT Timi Person MD POINT OF CARE TEST ORDERABLES [facility] [place] [address] * Potassium (11/04/2023 1:38 AM EDT) [facility] Potassium 3.6 3.5 - 5.0 mMol/L 11/04/2023 2:06 AM EDT [facility] Blood VENOUS BLOOD SPECIMEN / Unknown IP Care Team Draw / Unknown 11/04/2023 1:38 AM EDT 11/04/2023 1:45 AM EDT Timi Person MD CHEMISTRY ORDERABLE S Performing Organization Address City/[facility] [address]/ZIP Co de Phone Number [facility] [place] [address] * ABORH RECHECK (PATIENT HISTORY FOUND) (11/03/2023 11:53 PM EDT) [facility] ABORH Recheck Progress Complete 11/04/2023 2:00 AM EDT [facility] Blood VENOUS BLOOD SPECIMEN / Unknown IP Care Team Draw / Unknown 11/03/2023 11:53 PM EDT 11/04/2023 12:22 AM EDT Timi Person MD BLOOD BANK LAB ORDE RABLES [facility] [place] [place] [address] * Type and screen ([facility]P/JEN) (11/03/2023 11:53 PM EDT) ABORH Type O POSITIVE 11/04/2023 1:06 AM EDT [facility] PATIENT HISTORY Found 11/04/2023 1:06 AM EDT [facility] Expires at [id number] on: 11-06-2023 11/04/2023 1:06 AM EDT [facility] ANTIBODY SCREEN AUTOMATED Negative 11/04/2023 1:06 AM EDT [facility] T&S only valid at [facility] 11/04/2023 1:06 AM EDT [facility] Blood VENOUS BLOOD SPECIMEN / Unknown IP Care Team Draw / Unknown 11/03/2023 11:53 PM EDT 11/04/2023 12:22 AM EDT Narrative [facility] - 11/04/2023 1:06 AM EDT This Type and Screen result is only valid at the [facility] Timi Person MD BLOOD BANK LAB MLE KALYAN [facility] [place] [place] [address] * (ABNORMAL) Basic Metabolic Panel (11/03/2023 11:53 PM EDT) Glucose 133 65 - 199 mg/dL 11/04/2023 12:47 AM T [facility] Comment:Glucose Concentratio n >=200 mg/dL plus symptoms is consistent with Diabetes Mellitus. Blood Urea Nitrogen 67(H) 10 - 20 mg/dL 11/04/2023 12:47 AM EDT [facility] Creatinine 5.66(H) 0.80 - 1.50 mg/dL 11/04/2023 12:47 AM EDT [facility] Sodium 141 135 - 145 mMol/L 11/04[facility]23 12:[facility] Potassium 4.4 3.5 - 5.0 mMol/L 11/04/2023 12:47 AM [facility] Chloride 101 98 - 107 mMol/L 11/04/2023 12:47 AM EDT [facility] Carbon Dioxide 21(L) 22 - 31 mMol/L 11/04/2023 12:47 AM EDT [facility] Anion Gap 19(H) 5 - 15 mMol/L 11/04/2023 12:47 AM EDT [facility] Calcium 7.7(L) 8.5 - 10.5 mg/dL 11/04/2023 12:47 AM EDT [facility] Est Glomerular Filtration Rate - Male 12 mL/min/1. 73 m?? 11/04/2023 12:47 AM EDT [facility] Comment: This patient's estimated [...] EDT Timi Person MD CHEMISTRY ORDERABLE S [facility] [place] [address] * Prothrombin Time (11/03/2023 11:53 PM EDT) Pathologist [facility] Prothrombin Time 12.4 9.4 - 12.5 sec 11/04/2023 12:35 AM EDT [facility] International Normalization Ratio 1.1 <=4.9 11/04/2023 12:35 AM EDT [facility] Comment: An INR < 2.0 indicates [...] MD HEMATOLOGY ORDERABL ES Performing Organization Address City/[facility] [address]/ZIP Co de Phone Number [facility] [place] [address] * (ABNORMAL) Phosphorus (11/03/2023 11:53 PM EDT) Phosphorus 10.0(H) 2.5 - 4.5 mg/dL 11/04/2023 1:00 AM EDT [facility] Blood VENOUS BLOOD SPECIMEN / Unknown IP Care Team Draw / Unknown 11/03/2023 11:53 PM EDT 11/04/2023 12:05 AM EDT Timi Person MD CHEMISTRY ORDERABLE S Performing Organization Address City/[facility] [address]/ZIP Co de Phone Number [facility] [place] [address] * Magnesium (11/03/2023 11:53 PM EDT) Magnesium 0.97 0.69 - 1.07 mMol/L 11/04/2023 12:47 AM EDT [facility] Blood VENOUS BLOOD SPECIMEN / Unknown IP Care Team Draw / Unknown 11/03/2023 11:53 PM EDT 11/04/2023 12:05 AM EDT Timi Person MD CHEMISTRY ORDERABLE S Performing Organization Address City/[facility] [address]/ZIP Co de Phone Number [facility] [place] [address] * Vancomycin Level, Random (11/03/2023 11:53 PM EDT) Vancomycin, Random 24.2 mg/L 2023 12:47 AM EDT [facility] Comment:This level is for de termination of the patient's vancomycin avcf-jbhoj-nrw-curve (AUC) value. Contact the inpatient pharmacy for interpretation. Blood VENOUS BLOOD SPECIMEN / Unknown IP Care Team Draw / Unknown 11/03/2023 11:53 PM EDT 11/04/2023 12:05 AM EDT Timi Person MD CHEMISTRY ORDERABLE S [facility] [place] [address] * Triglyceride (11/03/2023 11:53 PM EDT) Triglyceride 464 mg/dL 11/04/2023 12:47 AM EDT [facility] Comment: Normal: <150 mg/dL Borderline High: 150-199 mg/dL High: 200-499 mg/dL Very High: > or =500 mg/dL Blood VENOUS BLOOD SPECIMEN / Unknown IP Care Team Draw / Unknown 11/03/2023 11:53 PM EDT 11/04/2023 12:05 AM EDT Timi Person MD CHEMISTRY ORDERABLE S Performing Organization Address City/[facility] [address]/ZIP Co de Phone Number [facility] [place] [address] * POC, GLUCOSE (11/03/2023 11:52 PM EDT) Glucometer, POC 122 65 - 199 mg/dL 11/03/2023 11:53 PM EDT [facility] Comment:Supplemental ranges: <140 mg/dL before meals <180 mg/dL all other times of the day. Blood CAPILLARY BLOOD / Unknown 11/03/2023 11:52 PM EDT 11/03/2023 11:53 PM EDT Timi Person MD POINT OF CARE TEST ORDERABLES [facility] [place] [address] * POC, GLUCOSE (11/03/2023 11:10 PM EDT) Glucometer, POC 128 65 - 199 mg/dL 11/03/2023 11:11 PM EDT [facility] Comment:Supplemental ranges: <140 mg/dL before meals <180 mg/dL all other times of the day. Blood CAPILLARY BLOOD / Unknown 11/03/2023 11:10 PM EDT 11/03/2023 11:11 PM EDT Timi Person MD POINT OF CARE TEST ORDERABLES Performing Organization Address City/[facility] [address]/ZIP Co de Phone Number [facility] [place] [address] * POC, GLUCOSE (11/03/2023 10:33 PM EDT) Glucometer, POC 133 65 - 199 mg/dL 11/03/2023 10:33 PM EDT [facility] Comment:Supplemental ranges: <140 mg/dL before meals <180 mg/dL all other times of the day. Blood CAPILLARY BLOOD / Unknown 11/03/2023 10:33 PM EDT 11/03/2023 10:33 PM EDT Timi Person MD POINT OF CARE TEST ORDERABLES [facility] [place] [address] * (ABNORMAL) CBC (with Diff) (11/03/2023 10:28 PM EDT) White Blood Cell 12.14(H) 4.00 - 9.50 x10(3)/mc L 11/03/2023 11:32 PM EDT [facility] Red Blood Cell 3.26(L) 4.58 - 5.54 x10(6)/mc L 11/03/2023 11:32 PM EDT [facility] Hemoglobin 6.7(L) 13.7 - 16.5 g/dL 11/03/2023 11:32 PM [facility] Hematocrit 21.5(L) 40.5 - 48.5 % 11/03/2023 11:32 PM [facility] Mean Cell Volume 66.0(L) 82.9 - 93.1 fL 11/03/2023 11:32 PM [facility] Mean Cell Hemoglobin 20.6(L) 27.5 - 32.1 pg 11/03/2023 11:32 PM [facility] Mean Cell Hemoglobin Concentration 31.2(L) 32.0 - 35.7 g/dL 11/03/2023 11:32 PM [facility] Platelet 208 145 - 357 x10(3)/mc L 11/03/2023 11:32 PM [facility] Mean Platelet Volume 10.8 7.6 - 12.9 fL 11/03/2023 11:32 PM [facility] RDW Standard Deviation 41.4 36.0 - 45.0 fL 11/03/2023 11:32 PM [facility] RDW coefficient of variation 17.6(H) 11.4 - 13.8 % 11/03/2023 11:32 PM [facility] NRBC% auto 1.0 % 11/03/2023 11:32 PM [facility] NRBC Absolute 0.12(H) 0.00 - 0.00 x10(3)/mc L 11/03/2023 11:32 PM [facility] Neutrophil % 84.0 % 11/03/2023 11:32 PM [facility] Neutrophil Absolute (ANC) - Automated 10.19(H) 1.70 - 6.10 x10(3)/mc L 11/03/2023 11:32 PM [facility] Lymph % 7.1 % 11/03/2023 11:32 PM [facility] Lymph Absolute 0.86(L) 0.90 - 3.20 x10(3)/mc L 11/03/2023 11:32 PM EDT [facility] Monocyte % 5.8 % 11/03/2023 11:32 PM EDT [facility] Monocyte Absolute 0.71 0.30 - 0.90 x10(3)/mc L 11/03/2023 11:32 PM EDT [facility] Eos % 1.8 % 11/03/2023 11:32 PM EDT [facility] Eos Absolute 0.22 0.00 - 0.40 x10(3)/mc L 11/03/2023 11:32 PM EDT [facility] Basophil % 0.5 % 11/03/2023 11:32 PM EDT [facility] Baso Absolute 0.06 0.00 - 0.10 x10(3)/mc L 11/03/2023 11:32 PM EDT [facility] Immature Gran % 0.8 % 11:32 PM EDT [facility] Immature Gran Absolute 0.10(H) 0.00 - 0.04 x10(3)/mc L 11/03/2023 11:32 PM EDT [facility] Blood VENOUS BLOOD SPECIMEN / Unknown IP Care Team Draw / Unknown 11/03/2023 10:28 PM EDT 11/03/2023 10:38 PM EDT Timi Person MD HEMATOLOGY ORDERABL ES [facility] [place] [address] * (ABNORMAL) Blood Gas, Arterial POC (11/03/2023 8:31 PM EDT) pH, Arterial 7.36 7.35 - 7.45 11/03/2023 8:32 PM EDT [facility] PCO2, Arterial 40 35 - 45 mmHg 11/03/2023 8:32 PM [facility] PO2, Arterial 96 85 - 104 mmHg 11/03/2023 8:32 PM [facility] Bicarbonate, Arterial 22.0 20.0 - 26.0 mmol/L 11/03/2023 8:32 PM [facility] Base Excess, Arterial -3.5(L) -3.0 - 3.0 mmol/L 11/03/2023 8:32 PM [facility] Hemoglobin, Arterial 6.7(L) 13.7 - 16.5 g/dL 11/03/2023 8:32 PM [facility] Oxyhemoglobin, Arterial 95.1 94.0 - 97.0 % 11/03/2023 8:32 PM [facility] Carboxyhemoglobin , Arterial 0.7 % 11/03/2023 8:32 PM [facility] Comment: Nonsmokers: 0.5-1.5% COHB ?? Smokers: Variable ??but usually less than 10% ?? Toxic: 20-30% COHB ?? Lethal: Greater than 60% COHB Methemoglobin, Arterial 0.3 <=1.5 % 11/03/2023 8:32 PM [facility] Sodium, Arterial 135 135 - 145 mmol/L 11/03/2023 8:32 PM [facility] Potassium, Arterial 3.7 3.5 - 5.0 mmol/L 11/03/2023 8:32 PM [facility] Chloride, Arterial 101 98 - 107 mmol/L 11/03/2023 8:32 PM [facility] Lactate, Arterial 1.3 0.5 - 2.2 mmol/L 11/03/2023 8:32 PM [facility] Fraction of Inspired Oxygen 40 % 11/03/2023 8:32 PM [facility] PF Ratio 240 Ratio 11/03/2023 8:32 PM [facility] Comment:PF ratio calculated using the non-temperature corrected pO2 result. IONIZED CALCIUM, ARTERIAL 0.99(L) 1.15 - 1.33 mmol/L 11/03/2023 8:32 PM EDT [facility] Glucose, Arterial 134 65 - 199 mg/dL 11/03/2023 8:32 PM EDT [facility] Comment:Glucose Concentratio n >=200 mg/dL plus symptoms is consistent with Diabetes Mellitus. Blood ARTERIAL BLOOD / Unknown 11/03/2023 8:31 PM EDT 11/03/2023 8:32 PM EDT Timi Person MD POINT OF CARE TEST ORDERABLES Performing Organization Address City/[facility] [address]/ZIP Co de Phone Number [facility] [place] [address] * Potassium (11/03/2023 8:23 PM EDT) Potassium 3.7 3.5 - 5.0 mMol/L 11/03/2023 9:05 PM EDT [facility] Blood VENOUS BLOOD SPECIMEN / Unknown IP Care Team Draw / Unknown 11/03/2023 8:23 PM EDT 11/03/2023 8:27 PM EDT Timi Person MD CHEMISTRY ORDERABLE S Performing Organization Address City/[facility] [address]/ZIP Co de Phone Number [facility] [place] [address] * POC, GLUCOSE (11/03/2023 7:24 PM EDT) Glucometer, POC 144 65 - 199 mg/dL 11/03/2023 7:24 PM EDT [facility] Comment:Supplemental ranges: <140 mg/dL before meals <180 mg/dL all other times of the day. Blood CAPILLARY BLOOD / Unknown 11/03/2023 7:24 PM EDT 11/03/2023 7:24 PM EDT Timi Person MD POINT OF CARE TEST ORDERABLES [facility] [place] [address] * POC, GLUCOSE (11/03/2023 5:14 PM EDT) Glucometer, POC 141 65 - 199 mg/dL 11/03/2023 5:14 PM EDT [facility] Comment:Supplemental ranges: <140 mg/dL before meals <180 mg/dL all other times of the day. Blood CAPILLARY BLOOD / Unknown 11/03/2023 5:14 PM EDT 11/03/2023 5:15 PM EDT Timi Person MD POINT OF CARE TEST ORDERABLES Performing Organization Address [facility] [address]/[facility] Co de Phone Number [facility] [place] [address] * POC, GLUCOSE (11/03/2023 3:46 PM EDT) Glucometer, POC 145 65 - 199 mg/dL 11/03/2023 3:46 PM EDT [facility] Comment:Supplemental ranges: <140 mg/dL before meals <180 mg/dL all other times of the day. Blood CAPILLARY BLOOD / Unknown 11/03/2023 3:46 PM EDT 11/03/2023 3:46 PM EDT Timi Person MD POINT OF CARE TEST ORDERABLES Performing Organization Address [facility] [address]/ZIP Co de Phone Number [facility] [place] [address] * (ABNORMAL) Blood Gas, Arterial POC (11/03/2023 1:09 PM EDT) pH, Arterial 7.36 7.35 - 7.45 11/03/2023 1:10 PM EDT [facility] PCO2, Arterial 38 35 - 45 mmHg 11/03/2023 1:10 PM EDT [facility] PO2, Arterial 106(H) 85 - 104 mmHg 11/03/2023 1:10 PM [facility] Bicarbonate, Arterial 21.1 20.0 - 26.0 mmol/L 11/03/2023 1:10 PM [facility] Base Excess, Arterial -4.4(L) -3.0 - 3.0 mmol/L 11/03/2023 1:10 PM [facility] Hemoglobin, Arterial 7.0(L) 13.7 - 16.5 g/dL 11/03/2023 1:10 PM [facility] Oxyhemoglobin, Arterial 95.8 94.0 - 97.0 % 11/03/2023 1:10 PM [facility] Carboxyhemoglobin , Arterial 1.0 % 11/03/2023 1:10 PM [facility] Comment: Nonsmokers: 0.5-1.5% COHB ?? Smokers: Variable ??but usually less than 10% ?? Toxic: 20-30% COHB ?? Lethal: Greater than 60% COHB Methemoglobin, Arterial 0.3 <=1.5 % 11/03/2023 1:10 PM [facility] Sodium, Arterial 134(L) 135 - 145 mmol/L 11/03/2023 1:10 PM [facility] Potassium, Arterial 3.8 3.5 - 5.0 mmol/L 11/03/2023 1:10 PM [facility] Chloride, Arterial 101 98 - 107 mmol/L 11/03/2023 1:10 PM [facility] Lactate, Arterial 1.1 0.5 - 2.2 mmol/L 11/03/2023 1:10 PM [facility] Fraction of Inspired Oxygen 40 % 11/03/2023 1:10 PM [facility] PF Ratio 265 Ratio 11/03/2023 1:10 PM [facility] Comment:PF ratio calculated using the non-temperature corrected pO2 result. IONIZED CALCIUM, ARTERIAL 0.99(L) 1.15 - 1.33 mmol/L 11/03/2023 1:10 PM EDT [facility] Glucose, Arterial 129 65 - 199 mg/dL 11/03/2023 1:10 PM EDT [facility] Comment:Glucose Concentratio n >=200 mg/dL plus symptoms is consistent with Diabetes Mellitus. Blood ARTERIAL BLOOD / Unknown 11/03/2023 1:09 PM EDT 11/03/2023 1:10 PM EDT Timi Person MD POINT OF CARE TEST ORDERABLES [facility] [place] [address] * (ABNORMAL) Basic Metabolic Panel (11/03/2023 1:05 PM EDT) Glucose 131 65 - 199 mg/dL 11/03/2023 1:59 PM EDT [facility] Comment:Glucose Concentratio n >=200 mg/dL plus symptoms is consistent with Diabetes Mellitus. Blood Urea Nitrogen 65(H) 10 - 20 mg/dL 11/03/2023 1:59 PM EDT [facility] Creatinine 5.39(H) 0.80 - 1.50 mg/dL 11/03/2023 1:59 PM EDT [facility] Sodium 139 135 - 145 mMol/L 11/03/2023 1:59 PM EDT [facility] Potassium 3.8 3.5 - 5.0 mMol/L 11/03/2023 1:59 PM EDT [facility] Chloride 99 98 - 107 mMol/L 11/03/2023 1:59 PM EDT [facility] Carbon Dioxide 22 22 - 31 mMol/L 11/03/2023 1:59 PM EDT [facility] Anion Gap 18(H) 5 - 15 mMol/L 11/03/2023 1:59 PM EDT [facility] Calcium 7.4(L) 8.5 - 10.5 mg/dL 11/03/2023 1:59 PM EDT [facility] Est Glomerular Filtration Rate - Male 13 mL/min/1. 73 m?? 11/03/2023 1:59 PM EDT [facility] Comment: This patient's estimated [...] EDT Timi Person MD CHEMISTRY ORDERABLE S [facility] [place] [address] * (ABNORMAL) Prothrombin Time (11/03/2023 1:05 PM EDT) Prothrombin Time 13.0(H) 9.4 - 12.5 sec 11/03/2023 1:38 PM EDT [facility] International Normalization Ratio 1.1 <=4.9 11/03/2023 1:38 PM EDT [facility] Comment: An INR < 2.0 indicates [...] EDT Timi Person MD HEMATOLOGY ORDERABL ES [facility] [place] [address] * XR Abdomen 1 view (Generic) (11/03/2023 12:27 PM EDT) WORKSTATION ID [id number] RAD Anatomical Region Laterality Modality Abdomen N/A Digital Radiogra phy Impressions 11/03/2023 1:08 PM EDT Feeding tube tip in the mid stomach, stable. Thank you for letting us participate in the care of this patient. ??If you are a health care provider and have any questions regarding this report, please contact the number below. ??For patients who have questions please contact the health healthcare account manager that requested your imaging first. ? Narrative [...] patients who have questions please contactthe health healthcare account manager that requested your imaging first. Timi Person MD IMG DX ORDERABLES * XR Abdomen 1 view (Generic) (11/03/2023 12:19 PM EDT) WORKSTATION ID [id number] RAD Anatomical Region Laterality Modality Abdomen N/A Digital Radiogra phy Impressions 11/03/2023 12:56 PM EDT Feeding tube tip in the mid stomach. Thank you for letting us participate in the care of this patient. ??If you are a health care provider and have any questions regarding this report, please contact the number below. ??For patients who have questions please contact the health healthcare account manager that requested your imaging first. ? Narrative [...] patients who have questions please contactthe health healthcare account manager that requested your imaging first. Timi Person MD IMG DX ORDERABLES * POC, GLUCOSE (11/03/2023 11:24 AM EDT) Glucometer, POC 145 65 - 199 mg/dL 11/03/2023 11:24 AM EDT [facility] Comment:Supplemental ranges: <140 mg/dL before meals <180 mg/dL all other times of the day. Blood CAPILLARY BLOOD / Unknown 11/03/2023 11:24 AM EDT 11/03/2023 11:24 AM EDT Timi Person MD POINT OF CARE TEST ORDERABLES [facility] [place] [address] * POC, GLUCOSE (11/03/2023 10:03 AM EDT) Glucometer, POC 126 65 - 199 mg/dL 11/03/2023 10:03 AM EDT [facility] Comment:Supplemental ranges: <140 mg/dL before meals <180 mg/dL all other times of the day. Blood CAPILLARY BLOOD / Unknown 11/03/2023 10:03 AM EDT 11/03/2023 10:04 AM EDT Timi Person MD POINT OF CARE TEST ORDERABLES Performing Organization Address [facility] [address]/[facility] Co de Phone Number [facility] [place] [address] * POC, GLUCOSE (11/03/2023 9:25 AM EDT) Pathologist Ric Glucometer, POC 115 65 - 199 mg/dL 11/03/2023 9:26 AM EDT [facility] Comment:Supplemental ranges: <140 mg/dL before meals <180 mg/dL all other times of the day. Blood CAPILLARY BLOOD / Unknown 11/03/2023 9:25 AM EDT 11/03/2023 9:26 AM EDT Timi Person MD POINT OF CARE TEST ORDERABLES Performing Organization Address [facility] [address]/[facility] Co de Phone Number [facility] [facility] [place] [address] * Duplex Study for DVT, Bilat legs (11/03/2023 8:39 AM EDT) VB Text Report Department: Vascular Surgery Lab Patient: [id number] (HAYDEN RUSSO) CPT: 20701 Referring Physician: TIMI PERSON ?? Phone: Indications: [...] - 5.0 mMol/L 11/03/2023 8:23 AM EDT [facility] Blood VENOUS BLOOD SPECIMEN / Unknown IP Care Team Draw / Unknown 11/03/2023 7:46 AM EDT 11/03/2023 7:53 AM EDT Timi Person MD CHEMISTRY ORDERABLE S [facility] [place] [address] * Vancomycin Level, Random (11/03/2023 7:46 AM EDT) Vancomycin, Random 29.6 mg/L 2023 8:23 AM EDT [facility] Comment:This level is for de termination of the patient's vancomycin dsie-cgiie-xpl-curve (AUC) value. Contact the inpatient pharmacy for interpretation. Blood VENOUS BLOOD SPECIMEN / Unknown IP Care Team Draw / Unknown 11/03/2023 7:46 AM EDT 11/03/2023 7:53 AM EDT Janie Smith MD CHEMISTRY ORDERABLES [facility] [place] [address] * (ABNORMAL) Blood Gas, Arterial POC (11/03/2023 7:07 AM EDT) pH, Arterial 7.40 7.35 - 7.45 11/03/2023 7:08 AM EDT [facility] PCO2, Arterial 35 35 - 45 mmHg 11/03/2023 7:08 AM EDT [facility] PO2, Arterial 102 85 - 104 mmHg 11/03/2023 7:08 AM EDT [facility] Bicarbonate, Arterial 21.4 20.0 - 26.0 mmol/L 11/03/2023 7:08 AM EDT [facility] Base Excess, Arterial -3.4(L) -3.0 - 3.0 mmol/L 11/03/2023 7:08 AM EDT [facility] Hemoglobin, Arterial 7.4(L) 13.7 - 16.5 g/dL 11/03/2023 7:08 AM EDT [facility] Oxyhemoglobin, Arterial 96.1 94.0 - 97.0 % 11/03/2023 7:08 AM EDT [facility] Carboxyhemoglobin , Arterial 0.7 % 11/03/2023 7:08 AM EDT [facility] Comment: Nonsmokers: 0.5-1.5% COHB ?? Smokers: Variable ??but usually less than 10% ?? Toxic: 20-30% COHB ?? Lethal: Greater than 60% COHB Methemoglobin, Arterial 0.3 <=1.5 % 11/03/2023 7:08 AM EDT [facility] Sodium, Arterial 134(L) 135 - 145 mmol/L 11/03/2023 7:08 AM EDT [facility] Potassium, Arterial 3.7 3.5 - 5.0 mmol/L 11/03/2023 7:08 AM EDT [facility] Chloride, Arterial 102 98 - 107 mmol/L 11/03/2023 7:08 AM EDT [facility] Lactate, Arterial 1.4 0.5 - 2.2 mmol/L 11/03/2023 7:08 AM EDT [facility] Fraction of Inspired Oxygen 50 % 11/03/2023 7:08 AM EDT [facility] PF Ratio 204 Ratio 11/03/2023 7:08 AM EDT [facility] Comment:PF ratio calculated using the non-temperature corrected pO2 result. IONIZED CALCIUM, ARTERIAL 0.96(L) 1.15 - 1.33 mmol/L 11/03/2023 7:08 AM EDT [facility] Glucose, Arterial 134 65 - 199 mg/dL 11/03/2023 7:08 AM EDT [facility] Comment:Glucose Concentratio n >=200 mg/dL plus symptoms is consistent with Diabetes Mellitus. Blood ARTERIAL BLOOD / Unknown 11/03/2023 7:07 AM EDT 11/03/2023 7:08 AM EDT Timi Person MD POINT OF CARE TEST ORDERABLES [facility] [place] [address] * POC, GLUCOSE (11/03/2023 6:22 AM EDT) [facility] Signature Glucometer, POC 129 65 - 199 mg/dL 11/03/2023 6:22 AM EDT [facility] Comment:Supplemental ranges: <140 mg/dL before meals <180 mg/dL all other times of the day. Blood CAPILLARY BLOOD / Unknown 11/03/2023 6:22 AM EDT 11/03/2023 6:22 AM EDT Timi Person MD POINT OF CARE TEST ORDERABLES [facility] [place] [address] * POC, GLUCOSE (11/03/2023 5:09 AM EDT) Glucometer, POC 138 65 - 199 mg/dL 11/03/2023 5:09 AM EDT [facility] Comment:Supplemental ranges: <140 mg/dL before meals <180 mg/dL all other times of the day. Blood CAPILLARY BLOOD / Unknown 11/03/2023 5:09 AM EDT 11/03/2023 5:09 AM EDT Timi Person MD POINT OF CARE TEST ORDERABLES Performing Organization Address City/[facility] [address]/ZIP Co de Phone Number [facility] [place] [address] * POC, GLUCOSE (11/03/2023 2:20 AM EDT) Glucometer, POC 152 65 - 199 mg/dL 11/03/2023 2:20 AM EDT [facility] Comment:Supplemental ranges: <140 mg/dL before meals <180 mg/dL all other times of the day. Blood CAPILLARY BLOOD / Unknown 11/03/2023 2:20 AM EDT 11/03/2023 2:20 AM EDT Timi Person MD POINT OF CARE TEST ORDERABLES [facility] [place] [address] * POC, GLUCOSE (11/03/2023 12:22 AM EDT) Glucometer, POC 155 65 - 199 mg/dL 11/03/2023 12:23 AM EDT [facility] Comment:Supplemental ranges: <140 mg/dL before meals <180 mg/dL all other times of the day. Blood CAPILLARY BLOOD / Unknown 11/03/2023 12:22 AM EDT 11/03/2023 12:23 AM EDT Timi Person MD POINT OF CARE TEST ORDERABLES [facility] [place] [address] * (ABNORMAL) Basic Metabolic Panel (11/03/2023 12:21 AM EDT) Glucose 148 65 - 199 mg/dL 11/03/2023 1:04 AM [facility] Comment:Glucose Concentratio n >=200 mg/dL plus symptoms is consistent with Diabetes Mellitus. Blood Urea Nitrogen 58(H) 10 - 20 mg/dL 11/03/2023 1:04 AM [facility] Creatinine 5.14(H) 0.80 - 1.50 mg/dL 11/03/2023 1:04 AM [facility] Sodium 140 135 - 145 mMol/L 11/03/2023 1:04 AM [facility] Potassium 4.0 3.5 - 5.0 mMol/L 11/03/2023 1:04 AM [facility] Chloride 101 98 - 107 mMol/L 11/03/2023 1:04 AM [facility] Carbon Dioxide 22 22 - 31 mMol/L 11/03/2023 1:04 AM [facility] Anion Gap 17(H) 5 - 15 mMol/L 11/03/2023 1:04 AM [facility] Calcium 7.5(L) 8.5 - 10.5 mg/dL 11/03/2023 1:04 AM [facility] Est Glomerular Filtration Rate - Male 13 mL/min/1. 73 m?? 11/03/2023 1:04 AM [facility] Comment: This patient's estimated GFR was [...] EDT Timi Person MD CHEMISTRY ORDERABLE S [facility] [place] [address] * (ABNORMAL) CBC (with Diff) (11/03/2023 12:21 AM EDT) White Blood Cell 12.98(H) 4.00 - 9.50 x10(3)/mc L 11/03/2023 12:56 AM [facility] Red Blood Cell 3.84(L) 4.58 - 5.54 x10(6)/mc L 11/03/2023 12:56 AM [facility] Hemoglobin 7.7(L) 13.7 - 16.5 g/dL 11/03/2023 12:56 AM [facility] Hematocrit 25.5(L) 40.5 - 48.5 % 11/03/2023 12:56 AM [facility] Mean Cell Volume 66.4(L) 82.9 - 93.1 fL 11/03/2023 12:56 AM [facility] Mean Cell Hemoglobin 20.1(L) 27.5 - 32.1 pg 11/03/2023 12:56 AM [facility] Mean Cell Hemoglobin Concentration 30.2(L) 32.0 - 35.7 g/dL 11/03/2023 12:56 AM [facility] Platelet 172 145 - 357 x10(3)/mc L 11/03/2023 12:56 AM [facility] Mean Platelet Volume 11.1 7.6 - 12.9 fL 11/03/2023 12:56 AM [facility] RDW Standard Deviation 42.1 36.0 - 45.0 fL 11/03/2023 12:56 AM [facility] RDW coefficient of variation 17.8(H) 11.4 - 13.8 % 11/03/2023 12:56 AM [facility] NRBC% auto 0.5 % 11/03/2023 12:56 AM [facility] NRBC Absolute 0.07(H) 0.00 - 0.00 x10(3)/mc L 11/03/2023 12:56 AM [facility] Neutrophil % 84.4 % 11/03/2023 12:56 AM [facility] Neutrophil Absolute (ANC) - Automated 10.96(H) 1.70 - 6.10 x10(3)/mc L 11/03/2023 12:56 AM [facility] Lymph % 7.9 % 11/03/2023 12:56 AM [facility] Lymph Absolute 1.03 0.90 - 3.20 x10(3)/mc L 11/03/2023 12:56 AM [facility] Monocyte % 5.9 % 11/03/2023 12:56 AM [facility] Monocyte Absolute 0.76 0.30 - 0.90 x10(3)/mc L 11/03/2023 12:56 AM [facility] Eos % 0.7 % 11/03/2023 12:56 AM [facility] Eos Absolute 0.09 0.00 - 0.40 x10(3)/mc L 11/03/2023 12:56 AM [facility] Basophil % 0.3 % 11/03/2023 12:56 AM [facility] Baso Absolute 0.04 0.00 - 0.10 x10(3)/mc L 11/03/2023 12:56 AM EDT [facility] Immature Gran % 0.8 % 12:56 AM EDT [facility] Immature Gran Absolute 0.10(H) 0.00 - 0.04 x10(3)/mc L 11/03/2023 12:56 AM EDT [facility] Blood VENOUS BLOOD SPECIMEN / Unknown IP Care Team Draw / Unknown 11/03/2023 12:21 AM EDT 11/03/2023 12:36 AM EDT Timi Person MD HEMATOLOGY ORDERABL ES Performing Organization Address City/[facility] [address]/ZIP Co de Phone Number [facility] [place] [address] * POC, GLUCOSE (11/02/2023 10:08 PM EDT) Glucometer, POC 153 65 - 199 mg/dL 11/02/2023 10:09 PM EDT [facility] Comment:Supplemental ranges: <140 mg/dL before meals <180 mg/dL all other times of the day. Blood CAPILLARY BLOOD / Unknown 11/02/2023 10:08 PM EDT 11/02/2023 10:09 PM EDT Timi Person MD POINT OF CARE TEST ORDERABLES Performing Organization Address City/[facility] [address]/ZIP Co de Phone Number [facility] [place] [address] * (ABNORMAL) Blood Gas, Arterial POC (11/02/2023 9:20 PM EDT) pH, Arterial 7.38 7.35 - 7.45 11/02/2023 9:21 PM EDT [facility] PCO2, Arterial 39 35 - 45 mmHg 11/02/2023 9:21 PM EDT [facility] PO2, Arterial 140(H) 85 - 104 mmHg 11/02/2023 9:21 PM EDT [facility] Bicarbonate, Arterial 22.5 20.0 - 26.0 mmol/L 11/02/2023 9:21 PM [facility] Base Excess, Arterial -2.6 -3.0 - 3.0 mmol/L 11/02/2023 9:21 PM [facility] Hemoglobin, Arterial 7.5(L) 13.7 - 16.5 g/dL 11/02/2023 9:21 PM [facility] Oxyhemoglobin, Arterial 97.5(H) 94.0 - 97.0 % 11/02/2023 9:21 PM [facility] Carboxyhemoglobin , Arterial 0.6 % 11/02/2023 9:21 PM [facility] Comment: Nonsmokers: 0.5-1.5% COHB ?? Smokers: Variable ??but usually less than 10% ?? Toxic: 20-30% COHB ?? Lethal: Greater than 60% COHB Methemoglobin, Arterial 0.3 <=1.5 % 11/02/2023 9:21 PM [facility] Sodium, Arterial 132(L) 135 - 145 mmol/L 11/02/2023 9:21 PM [facility] Potassium, Arterial 4.1 3.5 - 5.0 mmol/L 11/02/2023 9:21 PM [facility] Chloride, Arterial 101 98 - 107 mmol/L 11/02/2023 9:21 PM [facility] Lactate, Arterial 1.5 0.5 - 2.2 mmol/L 11/02/2023 9:21 PM [facility] Fraction of Inspired Oxygen 50 % 11/02/2023 9:21 PM [facility] PF Ratio 280 Ratio 11/02/2023 9:21 PM [facility] Comment:PF ratio calculated using the non-temperature corrected pO2 result. IONIZED CALCIUM, ARTERIAL 1.02(L) 1.15 - 1.33 mmol/L 11/02/2023 9:21 PM [facility] Glucose, Arterial 159 65 - 199 mg/dL 11/02/2023 9:21 PM EDT [facility] Comment:Glucose Concentratio n >=200 mg/dL plus symptoms is consistent with Diabetes Mellitus. Blood ARTERIAL BLOOD / Unknown 11/02/2023 9:20 PM EDT 11/02/2023 9:21 PM EDT Timi Person MD POINT OF CARE TEST ORDERABLES [facility] [place] [address] * Potassium (11/02/2023 9:16 PM EDT) Potassium 4.1 3.5 - 5.0 mMol/L 11/02/2023 9:54 PM EDT [facility] Blood VENOUS BLOOD SPECIMEN / Unknown IP Care Team Draw / Unknown 11/02/2023 9:16 PM EDT 11/02/2023 9:23 PM EDT Timi Person MD CHEMISTRY ORDERABLE S [facility] [place] [address] * POC, GLUCOSE (11/02/2023 8:03 PM EDT) Glucometer, POC 174 65 - 199 mg/dL 11/02/2023 8:03 PM EDT [facility] Comment:Supplemental ranges: <140 mg/dL before meals <180 mg/dL all other times of the day. Blood CAPILLARY BLOOD / Unknown 11/02/2023 8:03 PM EDT 11/02/2023 8:04 PM EDT Timi Person MD POINT OF CARE TEST ORDERABLES [facility] [place] [address] * Lower Respiratory Culture (11/02/2023 6:38 PM EDT) Lower Respiratory Culture Rare mixed bacterial morphotypes suggestive of normal upper respiratory adrian 11/04/2023 8:22 AM EDT [facility] Gram Stain No squamous epithelial cells 11/04/2023 8:22 AM EDT [facility] Gram Stain Many Neutrophils seen 11/04/2023 8:22 AM EDT [facility] Gram Stain Rare Mixed bacterial morphotypes suggestive of normal upper respiratory adrian 11/04/2023 8:22 AM EDT [facility] Bronchial Alveolar Lavage SPECIMEN FROM BRONCHUS / Unknown Non Blood Collection / Unknown 11/02/2023 6:38 PM EDT 11/02/2023 6:42 PM EDT Janie Smith MD MICROBIOLOGY - GENER AL ORDERABLES Performing Organization Address [facility] [address]/[facility] Co de Phone Number [facility] [place] [address] * Lower Respiratory Culture (11/02/2023 6:29 PM EDT) Lower Respiratory Culture Rare mixed bacterial morphotypes suggestive of normal upper respiratory adrian 11/04/2023 8:23 AM EDT [facility] Gram Stain No squamous epithelial cells 11/04/2023 8:23 AM EDT [facility] Gram Stain Many Neutrophils seen 11/04/2023 8:23 AM EDT [facility] Gram Stain Few Mixed bacterial morphotypes suggestive of normal upper respiratory adrian 11/04/2023 8:23 AM EDT [facility] Bronchial Alveolar Lavage SPECIMEN FROM BRONCHUS / Unknown Non Blood Collection / Unknown 11/02/2023 6:29 PM EDT 11/02/2023 6:42 PM EDT Janie Smith MD MICROBIOLOGY - GENER AL ORDERABLES Performing Organization Address City/[facility] [address]/ZIP Co de Phone Number [facility] [place] [address] * (ABNORMAL) Blood Gas, Arterial POC (11/02/2023 6:12 PM EDT) pH, Arterial 7.36 7.35 - 7.45 11/02/2023 6:13 PM [facility] PCO2, Arterial 39 35 - 45 mmHg 11/02/2023 6:13 PM [facility] PO2, Arterial 352(H) 85 - 104 mmHg 11/02/2023 6:13 PM [facility] Bicarbonate, Arterial 21.6 20.0 - 26.0 mmol/L 11/02/2023 6:13 PM [facility] Base Excess, Arterial -3.9(L) -3.0 - 3.0 mmol/L 11/02/2023 6:13 PM [facility] Hemoglobin, Arterial 7.6(L) 13.7 - 16.5 g/dL 11/02/2023 6:13 PM [facility] Oxyhemoglobin, Arterial 99.2(H) 94.0 - 97.0 % 11/02/2023 6:13 PM [facility] Carboxyhemoglobin , Arterial 0.2 % 11/02/2023 6:13 PM [facility] Comment: Nonsmokers: 0.5-1.5% COHB ?? Smokers: Variable ??but usually less than 10% ?? Toxic: 20-30% COHB ?? Lethal: Greater than 60% COHB Methemoglobin, Arterial 0.0 <=1.5 % 11/02/2023 6:13 PM [facility] Sodium, Arterial 132(L) 135 - 145 mmol/L 11/02/2023 6:13 PM [facility] Potassium, Arterial 3.9 3.5 - 5.0 mmol/L 11/02/2023 6:13 PM [facility] Chloride, Arterial 100 98 - 107 mmol/L 11/02/2023 6:13 PM [facility] Lactate, Arterial 1.4 0.5 - 2.2 mmol/L 11/02/2023 6:13 PM EDT [facility] Fraction of Inspired Oxygen 100 % 11/02/2023 6:13 PM EDT [facility] PF Ratio 352 Ratio 11/02/2023 6:13 PM EDT [facility] Comment:PF ratio calculated using the non-temperature corrected pO2 result. IONIZED CALCIUM, ARTERIAL 1.03(L) 1.15 - 1.33 mmol/L 11/02/2023 6:13 PM EDT [facility] Glucose, Arterial 163 65 - 199 mg/dL 11/02/2023 6:13 PM EDT [facility] Comment:Glucose Concentratio n >=200 mg/dL plus symptoms is consistent with Diabetes Mellitus. Blood ARTERIAL BLOOD / Unknown 11/02/2023 6:12 PM EDT 11/02/2023 6:13 PM EDT Timi Person MD POINT OF CARE TEST ORDERABLES [facility] [place] [address] * (ABNORMAL) Blood Gas, Arterial POC (11/02/2023 4:46 PM EDT) pH, Arterial 7.35 7.35 - 7.45 11/02/2023 4:48 PM EDT [facility] PCO2, Arterial 44 35 - 45 mmHg 11/02/2023 4:48 PM EDT [facility] PO2, Arterial 72(L) 85 - 104 mmHg 11/02/2023 4:48 PM EDT [facility] Bicarbonate, Arterial 23.6 20.0 - 26.0 mmol/L 11/02/2023 4:48 PM EDT [facility] Base Excess, Arterial -2.1 -3.0 - 3.0 mmol/L 11/02/2023 4:48 PM EDT [facility] Hemoglobin, Arterial 8.5(L) 13.7 - 16.5 g/dL 11/02/2023 4:48 PM EDT [facility] Oxyhemoglobin, Arterial 91.2(L) 94.0 - 97.0 % 11/02/2023 4:48 PM EDT [facility] Carboxyhemoglobin , Arterial 0.3 % 11/02/2023 4:48 PM EDT [facility] Comment: Nonsmokers: 0.5-1.5% COHB ?? Smokers: Variable ??but usually less than 10% ?? Toxic: 20-30% COHB ?? Lethal: Greater than 60% COHB Methemoglobin, Arterial 0.3 <=1.5 % 11/02/2023 4:48 PM EDT [facility] Sodium, Arterial 131(L) 135 - 145 mmol/L 11/02/2023 4:48 PM EDT [facility] Potassium, Arterial 4.0 3.5 - 5.0 mmol/L 11/02/2023 4:48 PM EDT [facility] Chloride, Arterial 100 98 - 107 mmol/L 11/02/2023 4:48 PM EDT [facility] Lactate, Arterial 1.6 0.5 - 2.2 mmol/L 11/02/2023 4:48 PM EDT [facility] Fraction of Inspired Oxygen 100 % 11/02/2023 4:48 PM EDT [facility] PF Ratio 72 Ratio 11/02/2023 4:48 PM EDT [facility] Comment:PF ratio calculated using the non-temperature corrected pO2 result. IONIZED CALCIUM, ARTERIAL 1.03(L) 1.15 - 1.33 mmol/L 11/02/2023 4:48 PM EDT [facility] Glucose, Arterial 174 65 - 199 mg/dL 11/02/2023 4:48 PM EDT [facility] Comment:Glucose Concentratio n >=200 mg/dL plus symptoms is consistent with Diabetes Mellitus. Blood ARTERIAL BLOOD / Unknown 11/02/2023 4:46 PM EDT 11/02/2023 4:48 PM EDT Timi Person MD POINT OF CARE TEST ORDERABLES Performing Organization Address [facility] [address]/ZIP Co de Phone Number [facility] [place] [address] * Potassium (11/02/2023 4:44 PM EDT) [facility] Potassium 4.0 3.5 - 5.0 mMol/L 11/02/2023 5:40 PM EDT [facility] Blood VENOUS BLOOD SPECIMEN / Unknown IP Care Team Draw / Unknown 11/02/2023 4:44 PM EDT 11/02/2023 5:00 PM EDT Timi Person MD CHEMISTRY ORDERABLE S Performing Organization Address [facility] [address]/[facility] de Phone Number [facility] [place] [address] * CT Chest wo Contrast (Generic) (11/02/2023 4:08 PM EDT) [facility] WORKSTATION ID [id number] RAD Anatomical Region Laterality Modality Chest Computed [...] who have questions please contact the health healthcare account manager that requested your imaging first. ? Narrative [...] structures: Recent median sternotomy Procedure Note Minesh aWy MD - 11/02/2023 EXAMINATION: CT CHEST WO [...] patients who have questions please contactthe health healthcare account manager that requested your imaging first. Timi Person MD IMG CT ORDERABLES * POC, GLUCOSE (11/02/2023 2:36 PM EDT) Glucometer, POC 158 65 - 199 mg/dL 11/02/2023 2:36 PM EDT [facility] Comment:Supplemental ranges: <140 mg/dL before meals <180 mg/dL all other times of the day. Blood CAPILLARY BLOOD / Unknown 11/02/2023 2:36 PM EDT 11/02/2023 2:37 PM EDT Timi Person MD POINT OF CARE TEST ORDERABLES Performing Organization Address City/State/[facility] Co de Phone Number [facility] [place] [address] * (ABNORMAL) Lower Respiratory Culture (11/02/2023 12:54 PM EDT) [facility] Signature Lower Respiratory Culture Rare mixed bacterial morphotypes suggestive of normal upper respiratory adrian 11/04/2023 8:16 AM EDT [facility] Gram Stain No squamous epithelial cells(A) 11/04/2023 8:16 AM EDT [facility] Gram Stain Moderate neutrophils(A) 11/04/2023 8:16 AM EDT [facility] Gram Stain Few Gram negative rods(A) 11/04/2023 8:16 AM EDT [facility] Gram Stain Few Gram positive cocci(A) 11/04/2023 8:16 AM EDT [facility] Sputum Induced LOWER RESPIRATORY TRACT STRUCTURE / Unknown 11/02/2023 12:54 PM EDT 11/02/2023 1:40 PM EDT Timi Person MD MICROBIOLOGY - GENE RAL ORDERABLES [facility] [place] [address] * POC, GLUCOSE (11/02/2023 12:52 PM EDT) Glucometer, POC 141 65 - 199 mg/dL 11/02/2023 12:52 PM EDT [facility] Comment:Supplemental ranges: <140 mg/dL before meals <180 mg/dL all other times of the day. Blood CAPILLARY BLOOD / Unknown 11/02/2023 12:52 PM EDT 11/02/2023 12:52 PM EDT Timi Person MD POINT OF CARE TEST ORDERABLES Performing Organization Address City/[facility] [address]/ZIP Co de Phone Number [facility] [place] [address] * (ABNORMAL) Blood Gas, Arterial POC (11/02/2023 11:48 AM EDT) pH, Arterial 7.39 7.35 - 7.45 11/02/2023 11:49 AM EDT [facility] PCO2, Arterial 43 35 - 45 mmHg 11/02/2023 11:49 AM EDT [facility] PO2, Arterial 81(L) 85 - 104 mmHg 11/02/2023 11:49 AM EDT [facility] Bicarbonate, Arterial 24.9 20.0 - 26.0 mmol/L 11/02/2023 11:49 AM EDT [facility] Base Excess, Arterial -0.1 -3.0 - 3.0 mmol/L 11/02/2023 11:49 AM EDT [facility] Hemoglobin, Arterial 8.6(L) 13.7 - 16.5 g/dL 11/02/2023 11:49 AM EDT [facility] Oxyhemoglobin, Arterial 94.1 94.0 - 97.0 % 11/02/2023 11:49 AM EDT [facility] Carboxyhemoglobin , Arterial 0.2 % 11/02/2023 11:49 AM [facility] Comment: Nonsmokers: 0.5-1.5% COHB ?? Smokers: Variable ??but usually less than 10% ?? Toxic: 20-30% COHB ?? Lethal: Greater than 60% COHB Methemoglobin, Arterial 0.3 <=1.5 % 11/02/2023 11:49 AM EDT [facility] [facility] Sodium, Arterial 136 135 - 145 mmol/L 11/02/2023 11:49 AM [facility] Potassium, Arterial 3.8 3.5 - 5.0 mmol/L 11/02/2023 11:49 AM [facility] Chloride, Arterial 101 98 - 107 mmol/L 11/02/2023 11:49 AM [facility] Lactate, Arterial 2.0 0.5 - 2.2 mmol/L 11/02/2023 11:49 AM [facility] Fraction of Inspired Oxygen 100 % 11/02/2023 11:49 AM [facility] PF Ratio 81 Ratio 11/02/2023 11:49 AM [facility] Comment:PF ratio calculated using the non-temperature corrected pO2 result. IONIZED CALCIUM, ARTERIAL 1.03(L) 1.15 - 1.33 mmol/L 11/02/2023 11:49 AM [facility] Glucose, Arterial 143 65 - 199 mg/dL 11/02/2023 11:49 AM [facility] Comment:Glucose Concentratio n >=200 mg/dL plus symptoms is consistent with Diabetes Mellitus. Blood ARTERIAL BLOOD / Unknown 11/02/2023 11:48 AM EDT 11/02/2023 11:49 AM EDT Timi Person MD POINT OF CARE TEST ORDERABLES [facility] [place] [address] * (ABNORMAL) Basic Metabolic Panel (11/02/2023 11:46 AM EDT) Glucose 139 65 - 199 mg/dL 11/02/2023 1:04 PM [facility] Comment:Glucose Concentratio n >=200 mg/dL plus symptoms is consistent with Diabetes Mellitus. Blood Urea Nitrogen 51(H) 10 - 20 mg/dL 11/02/2023 1:04 PM [facility] Creatinine 4.98(H) 0.80 - 1.50 mg/dL 11/02/2023 1:04 PM [facility] Sodium 142 135 - 145 mMol/L 11/02/2023 1:04 PM [facility] Potassium 3.9 3.5 - 5.0 mMol/L 11/02/2023 1:04 PM [facility] Chloride 101 98 - 107 mMol/L 11/02/2023 1:04 PM [facility] Carbon Dioxide 22 22 - 31 mMol/L 11/02/2023 1:04 PM [facility] Anion Gap 19(H) 5 - 15 mMol/L 11/02/2023 1:04 PM [facility] Calcium 7.9(L) 8.5 - 10.5 mg/dL 11/02/2023 1:04 PM [facility] Est Glomerular Filtration Rate - Male 14 mL/min/1. 73 m?? 11/02/2023 1:04 PM [facility] Comment: This patient's estimated GFR was [...] MD CHEMISTRY ORDERABLE S Performing Organization Address [facility] [address]/[facility] Co de Phone Number [facility] [place] [address] * POC, GLUCOSE (11/02/2023 10:10 AM EDT) Glucometer, POC 152 65 - 199 mg/dL 11/02/2023 10:10 AM EDT [facility] Comment:Supplemental ranges: <140 mg/dL before meals <180 mg/dL all other times of the day. Blood CAPILLARY BLOOD / Unknown 11/02/2023 10:10 AM EDT 11/02/2023 10:10 AM EDT Timi Person MD POINT OF CARE TEST ORDERABLES Performing Organization Address [facility] [address]/[facility] Co de Phone Number [facility] [place] [address] * XR Chest One View (11/02/2023 8:16 AM EDT) WORKSTATION ID [id number] DH RAD Anatomical Region Laterality Modality Chest [...] who have questions please contact the health healthcare account manager that requested your imaging first. ? Narrative [...] patients who have questions please contactthe health healthcare account manager that requested your imaging first. Timi Person MD IMG DX ORDERABLES * (ABNORMAL) Blood Gas, Arterial POC (11/02/2023 7:52 AM EDT) pH, Arterial 7.39 7.35 - 7.45 11/02/2023 7:54 AM EDT [facility] PCO2, Arterial 41 35 - 45 mmHg 11/02/2023 7:54 AM [facility] PO2, Arterial 57(L) 85 - 104 mmHg 11/02/2023 7:54 AM EDT [facility] Bicarbonate, Arterial 24.0 20.0 - 26.0 mmol/L 11/02/2023 7:54 AM [facility] Base Excess, Arterial -1.0 -3.0 - 3.0 mmol/L 11/02/2023 7:54 AM [facility] Hemoglobin, Arterial 8.1(L) 13.7 - 16.5 g/dL 11/02/2023 7:54 AM [facility] Oxyhemoglobin, Arterial 86.4(L) 94.0 - 97.0 % 11/02/2023 7:[facility] Carboxyhemoglobin , Arterial 0.8 % 11/02/2023 7:54 AM [facility] Comment: Nonsmokers: 0.5-1.5% COHB ?? Smokers: Variable ??but usually less than 10% ?? Toxic: 20-30% COHB ?? Lethal: Greater than 60% COHB Methemoglobin, Arterial 0.3 <=1.5 % 11/02/2023 7:54 AM EDT [facility] Sodium, Arterial 134(L) 135 - 145 mmol/L 11/02/2023 7:54 AM EDT [facility] Potassium, Arterial 4.2 3.5 - 5.0 mmol/L 11/02/2023 7:54 AM EDT [facility] Chloride, Arterial 101 98 - 107 mmol/L 11/02/2023 7:54 AM EDT [facility] Lactate, Arterial 2.0 0.5 - 2.2 mmol/L 11/02/2023 7:54 [facility] Fraction of Inspired Oxygen 70 % 11/02/2023 7:54 AM [facility] PF Ratio 81 Ratio 11/02/2023 7:54 AM [facility] Comment:PF ratio calculated using the non-temperature corrected pO2 result. IONIZED CALCIUM, ARTERIAL 1.03(L) 1.15 - 1.33 mmol/L 11/02/2023 7:54 AM EDT [facility] Glucose, Arterial 134 65 - 199 mg/dL 11/02/2023 7:54 AM [facility] Comment:Glucose Concentratio n >=200 mg/dL plus symptoms is consistent with Diabetes Mellitus. Blood ARTERIAL BLOOD / Unknown 11/02/2023 7:52 AM EDT 11/02/2023 7:54 AM EDT Timi Person MD POINT OF CARE TEST ORDERABLES [facility] [place] [address] * (ABNORMAL) Blood Gas, Arterial POC (11/02/2023 6:35 AM EDT) pH, Arterial 7.37 7.35 - 7.45 11/02/2023 6:36 AM EDT [facility] PH Corrected, Arterial 7.36 7.35 - 7.45 11/02/2023 6:36 AM EDT [facility] PCO2, Arterial 39 35 - 45 mmHg 11/02/2023 6:36 AM [facility] PCO2 Corrected, Arterial 40 35 - 45 mmHg 11/02/2023 6:36 AM [facility] PO2, Arterial 65(L) 85 - 104 mmHg 11/02/2023 6:36 AM [facility] PO2 Corrected, Arterial 68.1(L) 85 - 104 mmHg 11/02/2023 6:36 AM [facility] Bicarbonate, Arterial 22.0 20.0 - 26.0 mmol/L 11/02/2023 6:36 AM [facility] Base Excess, Arterial -3.3(L) -3.0 - 3.0 mmol/L 11/02/2023 6:36 AM [facility] Hemoglobin, Arterial 7.9(L) 13.7 - 16.5 g/dL 11/02/2023 6:36 AM [facility] Oxyhemoglobin, Arterial 90.0(L) 94.0 - 97.0 % 11/02/2023 6:36 AM [facility] Carboxyhemoglobin , Arterial 0.8 % 11/02/2023 6:36 AM [facility] Comment: Nonsmokers: 0.5-1.5% COHB ?? Smokers: Variable ??but usually less than 10% ?? Toxic: 20-30% COHB ?? Lethal: Greater than 60% COHB Methemoglobin, Arterial 0.3 <=1.5 % 11/02/2023 6:36 AM [facility] Sodium, Arterial 135 135 - 145 mmol/L 11/02/2023 6:36 AM [facility] Potassium, Arterial 3.8 3.5 - 5.0 mmol/L 11/02/2023 6:36 AM [facility] Chloride, Arterial 102 98 - 107 mmol/L 11/02/2023 6:36 AM [facility] Lactate, Arterial 1.3 0.5 - 2.2 mmol/L 11/02/2023 6:36 AM EDT [facility] Fraction of Inspired Oxygen 65 % 11/02/2023 6:36 AM EDT [facility] PF Ratio 100 Ratio 11/02/2023 6:36 AM EDT [facility] Comment:PF ratio calculated using the non-temperature corrected pO2 result. Patient Temperature 37.6 C 11/02/2023 6:36 AM EDT [facility] IONIZED CALCIUM, ARTERIAL 1.05(L) 1.15 - 1.33 mmol/L 11/02/2023 6:36 AM EDT [facility] Glucose, Arterial 113 65 - 199 mg/dL 11/02/2023 6:36 AM EDT [facility] Comment:Glucose Concentratio n >=200 mg/dL plus symptoms is consistent with Diabetes Mellitus. Blood ARTERIAL BLOOD / Unknown 11/02/2023 6:35 AM EDT 11/02/2023 6:36 AM EDT Timi Person MD POINT OF CARE TEST ORDERABLES [facility] [place] [address] * POC, GLUCOSE (11/02/2023 6:34 AM EDT) [facility] Signature Glucometer, POC 122 65 - 199 mg/dL 11/02/2023 6:35 AM EDT [facility] Comment:Supplemental ranges: <140 mg/dL before meals <180 mg/dL all other times of the day. Blood CAPILLARY BLOOD / Unknown 11/02/2023 6:34 AM EDT 11/02/2023 6:35 AM EDT Timi Person MD POINT OF CARE TEST ORDERABLES [facility] [place] [address] * POC, GLUCOSE (11/02/2023 5:30 AM EDT) Glucometer, POC 112 65 - 199 mg/dL 11/02/2023 5:31 AM EDT [facility] Comment:Supplemental ranges: <140 mg/dL before meals <180 mg/dL all other times of the day. Blood CAPILLARY BLOOD / Unknown 11/02/2023 5:30 AM EDT 11/02/2023 5:31 AM EDT Timi Person MD POINT OF CARE TEST ORDERABLES [facility] [place] [address] * POC, GLUCOSE (11/02/2023 4:02 AM EDT) Glucometer, POC 111 65 - 199 mg/dL 11/02/2023 4:03 AM EDT [facility] Comment:Supplemental ranges: <140 mg/dL before meals <180 mg/dL all other times of the day. Blood CAPILLARY BLOOD / Unknown 11/02/2023 4:02 AM EDT 11/02/2023 4:03 AM EDT Timi Person MD POINT OF CARE TEST ORDERABLES Performing Organization Address City/[facility] [address]/ZIP Co de Phone Number [facility] [place] [address] * POC, GLUCOSE (11/02/2023 2:10 AM EDT) Glucometer, POC 118 65 - 199 mg/dL 11/02/2023 2:11 AM EDT [facility] Comment:Supplemental ranges: <140 mg/dL before meals <180 mg/dL all other times of the day. Blood CAPILLARY BLOOD / Unknown 11/02/2023 2:10 AM EDT 11/02/2023 2:11 AM EDT Timi Person MD POINT OF CARE TEST ORDERABLES [facility] [place] [address] * (ABNORMAL) Basic Metabolic Panel (11/02/2023 12:02 AM EDT) Glucose 124 65 - 199 mg/dL 11/02/2023 12:40 AM [facility] Comment:Glucose Concentratio n >=200 mg/dL plus symptoms is consistent with Diabetes Mellitus. Blood Urea Nitrogen 47(H) 10 - 20 mg/dL 11/02/2023 12:40 AM [facility] Creatinine 4.85(H) 0.80 - 1.50 mg/dL 11/02/2023 12:40 AM [facility] Sodium 139 135 - 145 mMol/L 11/02/2023 12:40 AM [facility] Potassium 3.9 3.5 - 5.0 mMol/L 11/02/2023 12:40 AM [facility] Chloride 100 98 - 107 mMol/L 11/02/2023 12:40 AM [facility] Carbon Dioxide 23 22 - 31 mMol/L 11/02/2023 12:40 AM [facility] Anion Gap 16(H) 5 - 15 mMol/L 11/02/2023 12:40 AM [facility] Calcium 8.4(L) 8.5 - 10.5 mg/dL 11/02/2023 12:40 AM [facility] Est Glomerular Filtration Rate - Male 14 mL/min/1. 73 m?? 11/02/2023 12:40 AM [facility] Comment: This patient's estimated GFR was [...] EDT Timi Person MD CHEMISTRY ORDERABLE S [facility] [place] [address] * (ABNORMAL) CBC (with Diff) (11/02/2023 12:02 AM EDT) White Blood Cell 15.24(H) 4.00 - 9.50 x10(3)/mc L 11/02/2023 12:19 AM EDT [facility] Red Blood Cell 3.95(L) 4.58 - 5.54 x10(6)/mc L 11/02/2023 12:19 AM EDT [facility] Hemoglobin 8.0(L) 13.7 - 16.5 g/dL 11/02/2023 12:19 AM [facility] Hematocrit 26.1(L) 40.5 - 48.5 % 11/02/2023 12:19 AM EDT [facility] Mean Cell Volume 66.1(L) 82.9 - 93.1 fL 11/02/2023 12:19 AM T [facility] Mean Cell Hemoglobin 20.3(L) 27.5 - 32.1 pg 11/02/2023 12:19 AM [facility] Mean Cell Hemoglobin Concentration 30.7(L) 32.0 - 35.7 g/dL 11/02/2023 12:19 AM T [facility] Platelet 174 145 - 357 x10(3)/mc L 11/02/2023 12:19 AM [facility] Mean Platelet Volume 11.2 7.6 - 12.9 fL 11/02/2023 12:19 AM [facility] RDW Standard Deviation 43.6 36.0 - 45.0 fL 11/02/2023 12:19 AM [facility] RDW coefficient of variation 18.5(H) 11.4 - 13.8 % 11/02/2023 12:19 AM [facility] NRBC% auto 0.0 % 11/02/2023 12:19 AM [facility] NRBC Absolute 0.00 0.00 - 0.00 x10(3)/mc L 11/02/2023 12:19 AM [facility] Neutrophil % 88.9 % 11/02/2023 12:19 AM [facility] Neutrophil Absolute (ANC) - Automated 13.55(H) 1.70 - 6.10 x10(3)/mc L 11/02/2023 12:19 AM [facility] Lymph % 4.0 % 11/02/2023 12:19 AM [facility] Lymph Absolute 0.61(L) 0.90 - 3.20 x10(3)/mc L 11/02/2023 12:19 AM [facility] Monocyte % 6.2 % 11/02/2023 12:19 AM [facility] Monocyte Absolute 0.94(H) 0.30 - 0.90 x10(3)/mc L 11/02/2023 12:19 AM [facility] Eos % 0.1 % 11/02/2023 12:19 AM [facility] Eos Absolute 0.02 0.00 - 0.40 x10(3)/mc L 11/02/2023 12:19 AM [facility] Basophil % 0.2 % 11/02/2023 12:19 AM [facility] Baso Absolute 0.03 0.00 - 0.10 x10(3)/mc L 11/02/2023 12:19 AM [facility] Immature Gran % 0.6 % 12:19 AM EDT [facility] Immature Gran Absolute 0.09(H) 0.00 - 0.04 x10(3)/mc L 11/02/2023 12:19 AM EDT [facility] Blood VENOUS BLOOD SPECIMEN / Unknown IP Care Team Draw / Unknown 11/02/2023 12:02 AM EDT 11/02/2023 12:10 AM EDT Timi Person MD HEMATOLOGY ORDERABL ES [facility] [place] [address] * POC, GLUCOSE (11/01/2023 11:54 PM EDT) Glucometer, POC 124 65 - 199 mg/dL 11/01/2023 11:55 PM EDT [facility] Comment:Supplemental ranges: <140 mg/dL before meals <180 mg/dL all other times of the day. Blood CAPILLARY BLOOD / Unknown 11/01/2023 11:54 PM EDT 11/01/2023 11:55 PM EDT Timi Person MD POINT OF CARE TEST ORDERABLES Performing Organization Address City/[facility] [address]/ZIP Co de Phone Number [facility] [place] [address] * POC, GLUCOSE (11/01/2023 10:01 PM EDT) Glucometer, POC 121 65 - 199 mg/dL 11/01/2023 10:01 PM EDT [facility] Comment:Supplemental ranges: <140 mg/dL before meals <180 mg/dL all other times of the day. Blood CAPILLARY BLOOD / Unknown 11/01/2023 10:01 PM EDT 11/01/2023 10:01 PM EDT Timi Person MD POINT OF CARE TEST ORDERABLES [facility] [place] [address] * POC, GLUCOSE (11/01/2023 8:57 PM EDT) Glucometer, POC 128 65 - 199 mg/dL 11/01/2023 8:57 PM EDT [facility] Comment:Supplemental ranges: <140 mg/dL before meals <180 mg/dL all other times of the day. Blood CAPILLARY BLOOD / Unknown 11/01/2023 8:57 PM EDT 11/01/2023 8:57 PM EDT Timi Person MD POINT OF CARE TEST ORDERABLES [facility] [place] [address] * POC, GLUCOSE (11/01/2023 7:42 PM EDT) Glucometer, POC 121 65 - 199 mg/dL 11/01/2023 7:42 PM EDT [facility] Comment:Supplemental ranges: <140 mg/dL before meals <180 mg/dL all other times of the day. Blood CAPILLARY BLOOD / Unknown 11/01/2023 7:42 PM EDT 11/01/2023 7:42 PM EDT Timi Person MD POINT OF CARE TEST ORDERABLES [facility] [place] [address] * POC, GLUCOSE (11/01/2023 6:20 PM EDT) Glucometer, POC 135 65 - 199 mg/dL 11/01/2023 6:20 PM EDT [facility] Comment:Supplemental ranges: <140 mg/dL before meals <180 mg/dL all other times of the day. Blood CAPILLARY BLOOD / Unknown 11/01/2023 6:20 PM EDT 11/01/2023 6:20 PM EDT Timi Person MD POINT OF CARE TEST ORDERABLES [facility] [place] [address] * POC, GLUCOSE (11/01/2023 5:34 PM EDT) Glucometer, POC 127 65 - 199 mg/dL 11/01/2023 5:34 PM EDT [facility] Comment:Supplemental ranges: <140 mg/dL before meals <180 mg/dL all other times of the day. Blood CAPILLARY BLOOD / Unknown 11/01/2023 5:34 PM EDT 11/01/2023 5:34 PM EDT Timi Person MD POINT OF CARE TEST ORDERABLES Performing Organization Address City/[facility] [address]/ZIP Co de Phone Number [facility] [place] [address] * (ABNORMAL) Blood Gas, Arterial POC (11/01/2023 4:18 PM EDT) pH, Arterial 7.37 7.35 - 7.45 11/01/2023 4:19 PM EDT [facility] PCO2, Arterial 36 35 - 45 mmHg 11/01/2023 4:19 PM EDT [facility] PO2, Arterial 67(L) 85 - 104 mmHg 11/01/2023 4:19 PM EDT [facility] Bicarbonate, Arterial 20.7 20.0 - 26.0 mmol/L 11/01/2023 4:19 PM EDT [facility] Base Excess, Arterial -4.5(L) -3.0 - 3.0 mmol/L 11/01/2023 4:19 PM EDT [facility] Hemoglobin, Arterial 9.0(L) 13.7 - 16.5 g/dL 11/01/2023 4:19 PM EDT [facility] Oxyhemoglobin, Arterial 91.0(L) 94.0 - 97.0 % 11/01/2023 4:19 PM EDT [facility] Carboxyhemoglobin , Arterial 0.1 % 11/01/2023 4:19 PM EDT [facility] Comment: Nonsmokers: 0.5-1.5% COHB ?? Smokers: Variable ??but usually less than 10% ?? Toxic: 20-30% COHB ?? Lethal: Greater than 60% COHB Methemoglobin, Arterial 0.3 <=1.5 % 11/01/2023 4:19 PM EDT [facility] Sodium, Arterial 132(L) 135 - 145 mmol/L 11/01/2023 4:19 PM EDT [facility] Potassium, Arterial 4.2 3.5 - 5.0 mmol/L 11/01/2023 4:[facility] Chloride, Arterial 100 98 - 107 mmol/L 11/01/2023 4:19 PM [facility] Lactate, Arterial 1.7 0.5 - 2.2 mmol/L 11/01/2023 4:19 PM [facility] Fraction of Inspired Oxygen 50 % 11/01/2023 4:19 PM [facility] PF Ratio 134 Ratio 11/01/2023 4:19 PM [facility] Comment:PF ratio calculated using the non-temperature corrected pO2 result. IONIZED CALCIUM, ARTERIAL 1.10(L) 1.15 - 1.33 mmol/L 11/01/2023 4:19 PM EDT [facility] Glucose, Arterial 140 65 - 199 mg/dL 11/01/2023 4:19 PM [facility] Comment:Glucose Concentratio n >=200 mg/dL plus symptoms is consistent with Diabetes Mellitus. Blood ARTERIAL BLOOD / Unknown 11/01/2023 4:18 PM EDT 11/01/2023 4:19 PM EDT Timi Person MD POINT OF CARE TEST ORDERABLES [facility] [place] [address] * Potassium (11/01/2023 4:16 PM EDT) [facility] Potassium 4.4 3.5 - 5.0 mMol/L 11/01/2023 5:25 PM EDT [facility] Blood VENOUS BLOOD SPECIMEN / Unknown IP Care Team Draw / Unknown 11/01/2023 4:16 PM EDT 11/01/2023 4:42 PM EDT Timi Person MD CHEMISTRY ORDERABLE S [facility] [place] [address] * POC, GLUCOSE (11/01/2023 3:04 PM EDT) [facility] Glucometer, POC 167 65 - 199 mg/dL 11/01/2023 3:05 PM EDT [facility] Comment:Supplemental ranges: <140 mg/dL before meals <180 mg/dL all other times of the day. Blood CAPILLARY BLOOD / Unknown 11/01/2023 3:04 PM EDT 11/01/2023 3:05 PM EDT Timi Person MD POINT OF CARE TEST ORDERABLES [facility] [place] [address] * (ABNORMAL) Blood Gas, Arterial POC (11/01/2023 1:58 PM EDT) pH, Arterial 7.38 7.35 - 7.45 11/01/2023 1:59 PM EDT [facility] PCO2, Arterial 39 35 - 45 mmHg 11/01/2023 1:59 PM EDT [facility] PO2, Arterial 68(L) 85 - 104 mmHg 11/01/2023 1:59 PM EDT [facility] Bicarbonate, Arterial 22.6 20.0 - 26.0 mmol/L 11/01/2023 1:59 PM [facility] Base Excess, Arterial -2.5 -3.0 - 3.0 mmol/L 11/01/2023 1:59 PM [facility] Hemoglobin, Arterial 8.9(L) 13.7 - 16.5 g/dL 11/01/2023 1:59 PM [facility] Oxyhemoglobin, Arterial 91.8(L) 94.0 - 97.0 % 11/01/2023 1:59 PM [facility] Carboxyhemoglobin , Arterial 0.2 % 11/01/2023 1:59 PM [facility] Comment: Nonsmokers: 0.5-1.5% COHB ?? Smokers: Variable ??but usually less than 10% ?? Toxic: 20-30% COHB ?? Lethal: Greater than 60% COHB Methemoglobin, Arterial 0.3 <=1.5 % 11/01/2023 1:59 PM [facility] Sodium, Arterial 130(L) 135 - 145 mmol/L 11/01/2023 1:59 PM [facility] Potassium, Arterial 4.3 3.5 - 5.0 mmol/L 11/01/2023 1:59 PM [facility] Chloride, Arterial 100 98 - 107 mmol/L 11/01/2023 1:59 PM [facility] Lactate, Arterial 1.8 0.5 - 2.2 mmol/L 11/01/2023 1:59 PM [facility] Fraction of Inspired Oxygen 40 % 11/01/2023 1:59 PM [facility] PF Ratio 170 Ratio 11/01/2023 1:59 PM [facility] Comment:PF ratio calculated using the non-temperature corrected pO2 result. IONIZED CALCIUM, ARTERIAL 1.09(L) 1.15 - 1.33 mmol/L 11/01/2023 1:59 PM [facility] Glucose, Arterial 162 65 - 199 mg/dL 11/01/2023 1:59 PM EDT [facility] Comment:Glucose Concentratio n >=200 mg/dL plus symptoms is consistent with Diabetes Mellitus. Blood ARTERIAL BLOOD / Unknown 11/01/2023 1:58 PM EDT 11/01/2023 1:59 PM EDT Timi Person MD POINT OF CARE TEST ORDERABLES Performing Organization Address City/[facility] [address]/[facility] Co de Phone Number [facility] [place] [address] * POC, GLUCOSE (11/01/2023 1:02 PM EDT) Glucometer, POC 161 65 - 199 mg/dL 11/01/2023 1:02 PM EDT [facility] Comment:Supplemental ranges: <140 mg/dL before meals <180 mg/dL all other times of the day. Blood CAPILLARY BLOOD / Unknown 11/01/2023 1:02 PM EDT 11/01/2023 1:02 PM EDT Timi Person MD POINT OF CARE TEST ORDERABLES Performing Organization Address [facility] [address]/[facility] Co de Phone Number [facility] [place] [address] * (ABNORMAL) Blood Gas, Arterial POC (11/01/2023 11:36 AM EDT) pH, Arterial 7.36 7.35 - 7.45 11/01/2023 11:38 AM EDT [facility] PCO2, Arterial 41 35 - 45 mmHg 11/01/2023 11:38 AM EDT [facility] PO2, Arterial 72(L) 85 - 104 mmHg 11/01/2023 11:38 AM EDT [facility] Bicarbonate, Arterial 22.2 20.0 - 26.0 mmol/L 11/01/2023 11:38 AM EDT [facility] Base Excess, Arterial -3.4(L) -3.0 - 3.0 mmol/L 11/01/2023 11:38 AM [facility] Hemoglobin, Arterial 9.2(L) 13.7 - 16.5 g/dL 11/01/2023 11:38 AM [facility] Oxyhemoglobin, Arterial 92.2(L) 94.0 - 97.0 % 11/01/2023 11:38 AM [facility] Carboxyhemoglobin , Arterial 0.2 % 11/01/2023 11:38 AM [facility] Comment: Nonsmokers: 0.5-1.5% COHB ?? Smokers: Variable ??but usually less than 10% ?? Toxic: 20-30% COHB ?? Lethal: Greater than 60% COHB Methemoglobin, Arterial 0.3 <=1.5 % 11/01/2023 11:38 AM [facility] Sodium, Arterial 130(L) 135 - 145 mmol/L 11/01/2023 11:38 AM [facility] Potassium, Arterial 4.5 3.5 - 5.0 mmol/L 11/01/2023 11:38 AM [facility] Chloride, Arterial 100 98 - 107 mmol/L 11/01/2023 11:38 AM [facility] Lactate, Arterial 2.1 0.5 - 2.2 mmol/L 11/01/2023 11:38 AM [facility] Fraction of Inspired Oxygen 30 % 11/01/2023 11:38 AM [facility] PF Ratio 240 Ratio 11/01/2023 11:38 AM [facility] Comment:PF ratio calculated using the non-temperature corrected pO2 result. IONIZED CALCIUM, ARTERIAL 1.10(L) 1.15 - 1.33 mmol/L 11/01/2023 11:38 AM [facility] Glucose, Arterial 189 65 - 199 mg/dL 11/01/2023 11:38 AM [facility] Comment:Glucose Concentratio n >=200 mg/dL plus symptoms is consistent with Diabetes Mellitus. Blood ARTERIAL BLOOD / Unknown 11/01/2023 11:36 AM EDT 11/01/2023 11:38 AM EDT Timi Person MD POINT OF CARE TEST ORDERABLES [facility] [place] [address] * (ABNORMAL) Basic Metabolic Panel (11/01/2023 11:34 AM EDT) Glucose 191 65 - 199 mg/dL 11/01/2023 12:12 PM EDT [facility] Comment:Glucose Concentratio n >=200 mg/dL plus symptoms is consistent with Diabetes Mellitus. Blood Urea Nitrogen 46(H) 10 - 20 mg/dL 11/01/2023 12:12 PM EDT [facility] Creatinine 4.47(H) 0.80 - 1.50 mg/dL 11/01/2023 12:12 PM EDT [facility] Sodium 136 135 - 145 mMol/L 11/01/2023 12:12 PM EDT [facility] Potassium 4.6 3.5 - 5.0 mMol/L 11/01/2023 12:12 PM EDT [facility] Chloride 101 98 - 107 mMol/L 11/01/2023 12:12 PM EDT [facility] Carbon Dioxide 21(L) 22 - 31 mMol/L 11/01/2023 12:12 PM EDT [facility] Anion Gap 14 5 - 15 mMol/L 11/01/2023 12:12 PM EDT [facility] Calcium 8.2(L) 8.5 - 10.5 mg/dL 11/01/2023 12:12 PM EDT [facility] Est Glomerular Filtration Rate - Male 16 mL/min/1. 73 m?? 11/01/2023 12:12 PM EDT [facility] Comment: This patient's estimated [...] MD CHEMISTRY ORDERABLE S Performing Organization Address City/[facility] [address]/ZIP Co de Phone Number [facility] [place] [address] * POC, GLUCOSE (11/01/2023 10:12 AM EDT) Glucometer, POC 194 65 - 199 mg/dL 11/01/2023 10:12 AM EDT [facility] Comment:Supplemental ranges: <140 mg/dL before meals <180 mg/dL all other times of the day. Blood CAPILLARY BLOOD / Unknown 11/01/2023 10:12 AM EDT 11/01/2023 10:12 AM EDT Timi Person MD POINT OF CARE TEST ORDERABLES [facility] [place] [address] * (ABNORMAL) POC, GLUCOSE (11/01/2023 9:19 AM EDT) Glucometer, POC 224(H) 65 - 199 mg/dL 11/01/2023 9:19 AM EDT [facility] Comment:Supplemental ranges: <140 mg/dL before meals <180 mg/dL all other times of the day. Blood CAPILLARY BLOOD / Unknown 11/01/2023 9:19 AM EDT 11/01/2023 9:19 AM EDT Timi Person MD POINT OF CARE TEST ORDERABLES [facility] [place] [address] * (ABNORMAL) Blood Gas, Arterial POC (11/01/2023 8:06 AM EDT) pH, Arterial 7.33(L) 7.35 - 7.45 11/01/2023 8:08 AM EDT [facility] PCO2, Arterial 38 35 - 45 mmHg 11/01/2023 [facility] PO2, Arterial 81(L) 85 - 104 mmHg 11/01/2023 8:[facility] Bicarbonate, Arterial 19.4(L) 20.0 - 26.0 mmol/L 11/01/2023 8:08 AM [facility] Base Excess, Arterial -6.6(L) -3.0 - 3.0 mmol/L 11/01/2023 8:08 [facility] Hemoglobin, Arterial 10.2(L) 13.7 - 16.5 g/dL 11/01/2023 8:08 AM [facility] Oxyhemoglobin, Arterial 93.4(L) 94.0 - 97.0 % 11/01/2023 8:08 AM EDT [facility] Carboxyhemoglobin , Arterial 0.3 % 11/01/2023 8:08 AM [facility] Comment: Nonsmokers: 0.5-1.5% COHB ?? Smokers: Variable ??but usually less than 10% ?? Toxic: 20-30% COHB ?? Lethal: Greater than 60% COHB Methemoglobin, Arterial 0.3 <=1.5 % 11/01/2023 8:08 AM EDT [facility] Sodium, Arterial 129(L) 135 - 145 mmol/L 11/01/2023 8:08 AM EDT [facility] Potassium, Arterial 4.3 3.5 - 5.0 mmol/L 11/01/2023 8:08 AM EDT [facility] Chloride, Arterial 100 98 - 107 mmol/L 11/01/2023 8:08 AM EDT [facility] Lactate, Arterial 2.2 0.5 - 2.2 mmol/L 11/01/2023 8:08 AM EDT [facility] Fraction of Inspired Oxygen 50 % 11/01/2023 8:08 AM EDT [facility] PF Ratio 162 Ratio 11/01/2023 8:08 AM EDT [facility] Comment:PF ratio calculated using the non-temperature corrected pO2 result. IONIZED CALCIUM, ARTERIAL 1.09(L) 1.15 - 1.33 mmol/L 11/01/2023 8:08 AM EDT [facility] Glucose, Arterial 208(H) 65 - 199 mg/dL 11/01/2023 8:08 AM EDT [facility] Comment:Glucose Concentratio n >=200 mg/dL plus symptoms is consistent with Diabetes Mellitus. Blood ARTERIAL BLOOD / Unknown 11/01/2023 8:06 AM EDT 11/01/2023 8:08 AM EDT Timi Person MD POINT OF CARE TEST ORDERABLES [facility] [place] [address] * Beta Hydroxybutyrate (11/01/2023 8:03 AM EDT) Beta-hydroxybu tyrate <0.10 0.00 - 0.30 mMol/L 11/01/2023 9:21 AM EDT [facility] Blood VENOUS BLOOD SPECIMEN / Unknown IP Care Team Draw / Unknown 11/01/2023 8:03 AM EDT 11/01/2023 8:13 AM EDT Narrative [facility] - 11/01/2023 9:21 AM EDT This test has not been cleared by the [place] FDA. Performance characteristics of this test were determined by [facility] in accordance with CLIA requirements. This laboratory is qualified under CLIA to perform high-complexity testing. Timi Person MD CHEMISTRY ORDERABLE S Performing Organization Address City/[facility] [address]/ZIP Co de Phone Number [facility] [place] [address] * Potassium (11/01/2023 8:03 AM EDT) Potassium 4.6 3.5 - 5.0 mMol/L 11/01/2023 8:52 AM EDT [facility] Blood VENOUS BLOOD SPECIMEN / Unknown IP Care Team Draw / Unknown 11/01/2023 8:03 AM EDT 11/01/2023 8:13 AM EDT Timi Person MD CHEMISTRY ORDERABLE S Performing Organization Address [facility] [address]/ZIP Co de Phone Number [facility] [place] [address] * (ABNORMAL) POC, GLUCOSE (11/01/2023 7:02 AM EDT) Glucometer, POC 211(H) 65 - 199 mg/dL 11/01/2023 7:02 AM EDT [facility] Comment:Supplemental ranges: <140 mg/dL before meals <180 mg/dL all other times of the day. Blood CAPILLARY BLOOD / Unknown 11/01/2023 7:02 AM EDT 11/01/2023 7:02 AM EDT Timi Person MD POINT OF CARE TEST ORDERABLES Performing Organization Address [facility] [address]/ZIP Co de Phone Number [facility] [place] [address] * (ABNORMAL) POC, GLUCOSE (11/01/2023 5:59 AM EDT) Glucometer, POC 209(H) 65 - 199 mg/dL 11/01/2023 5:59 AM EDT [facility] Comment:Supplemental ranges: <140 mg/dL before meals <180 mg/dL all other times of the day. Blood CAPILLARY BLOOD / Unknown 11/01/2023 5:59 AM EDT 11/01/2023 5:59 AM EDT Timi Person MD POINT OF CARE TEST ORDERABLES Performing Organization Address [facility] [address]/[facility] Co de Phone Number [facility] [place] [address] * (ABNORMAL) POC, GLUCOSE (11/01/2023 5:03 AM EDT) Glucometer, POC 263(H) 65 - 199 mg/dL 11/01/2023 5:03 AM EDT [facility] Comment:Supplemental ranges: <140 mg/dL before meals <180 mg/dL all other times of the day. Blood CAPILLARY BLOOD / Unknown 11/01/2023 5:03 AM EDT 11/01/2023 5:04 AM EDT Timi Person MD POINT OF CARE TEST ORDERABLES Performing Organization Address [facility] [address]/[facility] Co de Phone Number [facility] [place] [address] * (ABNORMAL) Blood Gas, Arterial POC (11/01/2023 4:07 AM EDT) pH, Arterial 7.38 7.35 - 7.45 11/01/2023 4:08 AM EDT [facility] PCO2, Arterial 39 35 - 45 mmHg 11/01/2023 4:08 AM EDT [facility] PO2, Arterial 79(L) 85 - 104 mmHg 11/01/2023 4:08 AM EDT [facility] Bicarbonate, Arterial 22.4 20.0 - 26.0 mmol/L 11/01/2023 4:08 AM EDT [facility] Base Excess, Arterial -2.7 -3.0 - 3.0 mmol/L 11/01/2023 4:08 AM [facility] Hemoglobin, Arterial 9.3(L) 13.7 - 16.5 g/dL 11/01/2023 4:08 AM [facility] Oxyhemoglobin, Arterial 94.3 94.0 - 97.0 % 11/01/2023 4:08 AM [facility] Carboxyhemoglobin , Arterial 0.1 % 11/01/2023 4:08 AM [facility] Comment: Nonsmokers: 0.5-1.5% COHB ?? Smokers: Variable ??but usually less than 10% ?? Toxic: 20-30% COHB ?? Lethal: Greater than 60% COHB Methemoglobin, Arterial 0.3 <=1.5 % 11/01/2023 4:08 AM [facility] Sodium, Arterial 127(L) 135 - 145 mmol/L 11/01/2023 4:08 AM [facility] Potassium, Arterial 4.7 3.5 - 5.0 mmol/L 11/01/2023 4:08 AM [facility] Chloride, Arterial 100 98 - 107 mmol/L 11/01/2023 4:08 AM [facility] Lactate, Arterial 3.4(H) 0.5 - 2.2 mmol/L 11/01/2023 4:08 AM [facility] Fraction of Inspired Oxygen 60 % 11/01/2023 4:08 AM [facility] PF Ratio 132 Ratio 11/01/2023 4:08 AM [facility] Comment:PF ratio calculated using the non-temperature corrected pO2 result. IONIZED CALCIUM, ARTERIAL 1.08(L) 1.15 - 1.33 mmol/L 11/01/2023 4:08 AM [facility] Glucose, Arterial 256(H) 65 - 199 mg/dL 11/01/2023 4:08 AM [facility] Comment:Glucose Concentratio n >=200 mg/dL plus symptoms is consistent with Diabetes Mellitus. Blood ARTERIAL BLOOD / Unknown 11/01/2023 4:07 AM EDT 11/01/2023 4:08 AM EDT Timi Person MD POINT OF CARE TEST ORDERABLES Performing Organization Address City/[facility] [address]/ZIP Co de Phone Number [facility] [place] [address] * Potassium (11/01/2023 4:05 AM EDT) Potassium 4.9 3.5 - 5.0 mMol/L 11/01/2023 4:34 AM EDT [facility] Blood VENOUS BLOOD SPECIMEN / Unknown IP Care Team Draw / Unknown 11/01/2023 4:05 AM EDT 11/01/2023 4:13 AM EDT Timi Person MD CHEMISTRY ORDERABLE S Performing Organization Address [facility] [address]/[facility] Co de Phone Number [facility] [place] [address] * (ABNORMAL) POC, GLUCOSE (11/01/2023 2:59 AM EDT) Glucometer, POC 218(H) 65 - 199 mg/dL 11/01/2023 2:59 AM EDT [facility] Comment:Supplemental ranges: <140 mg/dL before meals <180 mg/dL all other times of the day. Blood CAPILLARY BLOOD / Unknown 11/01/2023 2:59 AM EDT 11/01/2023 2:59 AM EDT Timi Person MD POINT OF CARE TEST ORDERABLES Performing Organization Address City/[facility] [address]/ZIP Co de Phone Number [facility] [place] [address] * (ABNORMAL) CBC (with Diff) (11/01/2023 2:36 AM EDT) White Blood Cell 17.75(H) 4.00 - 9.50 x10(3)/mc L 11/01/2023 3:13 AM [facility] Red Blood Cell 4.30(L) 4.58 - 5.54 x10(6)/mc L 11/01/2023 3:13 AM [facility] Hemoglobin 8.7(L) 13.7 - 16.5 g/dL 11/01/2023 3:13 AM [facility] Hematocrit 28.8(L) 40.5 - 48.5 % 11/01/2023 3:13 AM [facility] Mean Cell Volume 67.0(L) 82.9 - 93.1 fL 11/01/2023 3:13 AM [facility] Mean Cell Hemoglobin 20.2(L) 27.5 - 32.1 pg 11/01/2023 3:13 AM [facility] Mean Cell Hemoglobin Concentration 30.2(L) 32.0 - 35.7 g/dL 11/01/2023 3:13 AM [facility] Platelet 203 145 - 357 x10(3)/mc L 11/01/2023 3:13 AM [facility] Mean Platelet Volume 9.9 7.6 - 12.9 fL 11/01/2023 3:13 AM [facility] RDW Standard Deviation 43.9 36.0 - 45.0 fL 11/01/2023 3:13 AM [facility] RDW coefficient of variation 18.6(H) 11.4 - 13.8 % 11/01/2023 3:13 AM [facility] NRBC% auto 0.0 % 11/01/2023 3:13 AM [facility] NRBC Absolute 0.00 0.00 - 0.00 x10(3)/mc L 11/01/2023 3:13 AM [facility] Neutrophil % 80.9 % 11/01/2023 3:13 AM [facility] Neutrophil Absolute (ANC) - Automated 14.35(H) 1.70 - 6.10 x10(3)/mc L 11/01/2023 3:13 AM EDT [facility] Lymph % 9.1 % 11/01/2023 3:13 AM EDT [facility] Lymph Absolute 1.62 0.90 - 3.20 x10(3)/mc L 11/01/2023 3:13 AM EDT [facility] Monocyte % 8.8 % 11/01/2023 3:13 AM EDT [facility] Monocyte Absolute 1.57(H) 0.30 - 0.90 x10(3)/mc L 11/01/2023 3:13 AM EDT [facility] Eos % 0.3 % 11/01/2023 3:13 AM EDT [facility] Eos Absolute 0.05 0.00 - 0.40 x10(3)/mc L 11/01/2023 3:13 AM EDT [facility] Basophil % 0.4 % 11/01/2023 3:13 AM EDT [facility] Baso Absolute 0.07 0.00 - 0.10 x10(3)/mc L 11/01/2023 3:13 AM EDT [facility] Immature Gran % 0.5 % 3:13 AM EDT [facility] Immature Gran Absolute 0.09(H) 0.00 - 0.04 x10(3)/mc L 11/01/2023 3:13 AM EDT [facility] Blood VENOUS BLOOD SPECIMEN / Unknown IP Care Team Draw / Unknown 11/01/2023 2:36 AM EDT 11/01/2023 2:41 AM EDT Timi Person MD HEMATOLOGY ORDERABL ES [facility] [place] [address] * (ABNORMAL) Basic Metabolic Panel (11/01/2023 2:36 AM EDT) Glucose 254(H) 65 - 199 mg/dL 11/01/2023 3:07 AM [facility] Comment:Glucose Concentratio n >=200 mg/dL plus symptoms is consistent with Diabetes Mellitus. Blood Urea Nitrogen 43(H) 10 - 20 mg/dL 11/01/2023 3:07 AM [facility] Creatinine 4.42(H) 0.80 - 1.50 mg/dL 11/01/2023 3:07 AM [facility] Sodium 135 135 - 145 mMol/L 11/01/2023 3:07 AM [facility] Potassium 4.9 3.5 - 5.0 mMol/L 11/01/2023 3:07 AM [facility] Chloride 101 98 - 107 mMol/L 11/01/2023 3:07 AM [facility] Carbon Dioxide 19(L) 22 - 31 mMol/L 11/01/2023 3:07 AM [facility] Anion Gap 15 5 - 15 mMol/L 11/01/2023 3:07 AM [facility] Calcium 7.9(L) 8.5 - 10.5 mg/dL 11/01/2023 3:07 AM [facility] Est Glomerular Filtration Rate - Male 16 mL/min/1. 73 m?? 11/01/2023 3:07 AM [facility] Comment: This patient's estimated GFR was [...] MD CHEMISTRY ORDERABLE S Performing Organization Address [facility] [address]/[facility] Co de Phone Number [facility] [place] [address] * (ABNORMAL) POC, GLUCOSE (11/01/2023 2:01 AM EDT) Glucometer, POC 245(H) 65 - 199 mg/dL 11/01/2023 2:02 AM EDT [facility] Comment:Supplemental ranges: <140 mg/dL before meals <180 mg/dL all other times of the day. Blood CAPILLARY BLOOD / Unknown 11/01/2023 2:01 AM EDT 11/01/2023 2:02 AM EDT Timi Person MD POINT OF CARE TEST ORDERABLES Performing Organization Address [facility] [address]/[facility] Co de Phone Number [facility] [place] [address] * (ABNORMAL) POC, GLUCOSE (11/01/2023 1:38 AM EDT) Glucometer, POC 235(H) 65 - 199 mg/dL 11/01/2023 1:38 AM EDT [facility] Comment:Supplemental ranges: <140 mg/dL before meals <180 mg/dL all other times of the day. Blood CAPILLARY BLOOD / Unknown 11/01/2023 1:38 AM EDT 11/01/2023 1:39 AM EDT Timi Person MD POINT OF CARE TEST ORDERABLES Performing Organization Address City/[facility] [address]/ZIP Co de Phone Number [facility] [place] [address] * (ABNORMAL) POC, GLUCOSE (11/01/2023 1:03 AM EDT) Glucometer, POC 270(H) 65 - 199 mg/dL 11/01/2023 1:03 AM EDT [facility] Comment:Supplemental ranges: <140 mg/dL before meals <180 mg/dL all other times of the day. Blood CAPILLARY BLOOD / Unknown 11/01/2023 1:03 AM EDT 11/01/2023 1:03 AM EDT Timi Person MD POINT OF CARE TEST ORDERABLES Performing Organization Address City/[facility] [address]/ZIP Co de Phone Number [facility] [place] [address] * (ABNORMAL) POC, GLUCOSE (10/31/2023 11:51 PM EDT) Glucometer, POC 212(H) 65 - 199 mg/dL 10/31/2023 11:51 PM EDT [facility] Comment:Supplemental ranges: <140 mg/dL before meals <180 mg/dL all other times of the day. Blood CAPILLARY BLOOD / Unknown 10/31/2023 11:51 PM EDT 10/31/2023 11:52 PM EDT Timi Person MD POINT OF CARE TEST ORDERABLES Performing Organization Address [facility] [address]/ZIP Co de Phone Number [facility] [place] [address] * (ABNORMAL) Potassium (10/31/2023 11:50 PM EDT) Potassium 5.7(H) 3.5 - 5.0 mMol/L 11/01/2023 12:30 AM EDT [facility] Blood VENOUS BLOOD SPECIMEN / Unknown IP Care Team Draw / Unknown 10/31/2023 11:50 PM EDT 11/01/2023 12:02 AM EDT Timi Person MD CHEMISTRY ORDERABLE S Performing Organization Address City/[facility] [address]/ZIP Co de Phone Number [facility] [place] [address] * (ABNORMAL) Blood Gas, Arterial POC (10/31/2023 11:36 PM EDT) pH, Arterial 7.39 7.35 - 7.45 10/31/2023 11:39 PM [facility] PCO2, Arterial 35 35 - 45 mmHg 10/31/2023 11:39 PM [facility] PO2, Arterial 72(L) 85 - 104 mmHg 10/31/2023 11:39 PM [facility] Bicarbonate, Arterial 20.8 20.0 - 26.0 mmol/L 10/31/2023 11:39 PM [facility] Base Excess, Arterial -4.1(L) -3.0 - 3.0 mmol/L 10/31/2023 11:39 PM [facility] Hemoglobin, Arterial 9.4(L) 13.7 - 16.5 g/dL 10/31/2023 11:39 PM [facility] Oxyhemoglobin, Arterial 93.3(L) 94.0 - 97.0 % 10/31/2023 11:39 PM [facility] Carboxyhemoglobin , Arterial 0.3 % 10/31/2023 11:39 PM [facility] Comment: Nonsmokers: 0.5-1.5% COHB ?? Smokers: Variable ??but usually less than 10% ?? Toxic: 20-30% COHB ?? Lethal: Greater than 60% COHB Methemoglobin, Arterial 0.3 <=1.5 % 10/31/2023 11:39 PM [facility] Sodium, Arterial 126(L) 135 - 145 mmol/L 10/31/2023 11:39 PM [facility] Potassium, Arterial 5.4(H) 3.5 - 5.0 mmol/L 10/31/2023 11:39 PM [facility] Chloride, Arterial 103 98 - 107 mmol/L 10/31/2023 11:39 PM [facility] Lactate, Arterial 2.5(H) 0.5 - 2.2 mmol/L 10/31/2023 11:39 PM EDT [facility] Fraction of Inspired Oxygen 60 % 10/31/2023 11:39 PM EDT [facility] PF Ratio 120 Ratio 10/31/2023 11:39 PM EDT [facility] Comment:PF ratio calculated using the non-temperature corrected pO2 result. IONIZED CALCIUM, ARTERIAL 1.05(L) 1.15 - 1.33 mmol/L 10/31/2023 11:39 PM EDT [facility] Glucose, Arterial 200(H) 65 - 199 mg/dL 10/31/2023 11:39 PM EDT [facility] Comment:Glucose Concentratio n >=200 mg/dL plus symptoms is consistent with Diabetes Mellitus. Blood ARTERIAL BLOOD / Unknown 10/31/2023 11:36 PM EDT 10/31/2023 11:39 PM EDT Timi Person MD POINT OF CARE TEST ORDERABLES [facility] [place] [address] * POC, GLUCOSE (10/31/2023 11:00 PM EDT) Glucometer, POC 169 65 - 199 mg/dL 10/31/2023 11:00 PM EDT [facility] Comment:Supplemental ranges: <140 mg/dL before meals <180 mg/dL all other times of the day. Blood CAPILLARY BLOOD / Unknown 10/31/2023 11:00 PM EDT 10/31/2023 11:01 PM EDT Timi Person MD POINT OF CARE TEST ORDERABLES [facility] [place] [address] * POC, GLUCOSE (10/31/2023 10:04 PM EDT) Glucometer, POC 163 65 - 199 mg/dL 10/31/2023 10:04 PM EDT [facility] LABORATORY Comment:Supplemental ranges: <140 mg/dL before meals <180 mg/dL all other times of the day. Blood CAPILLARY BLOOD / Unknown 10/31/2023 10:04 PM EDT 10/31/2023 10:04 PM EDT Timi Person MD POINT OF CARE TEST ORDERABLES Performing Organization Address City/[facility] [address]/[facility] Co de Phone Number [facility] [place] [address] * POC, GLUCOSE (10/31/2023 9:11 PM EDT) Glucometer, POC 168 65 - 199 mg/dL 10/31/2023 9:12 PM EDT [facility] Comment:Supplemental ranges: <140 mg/dL before meals <180 mg/dL all other times of the day. Blood CAPILLARY BLOOD / Unknown 10/31/2023 9:11 PM EDT 10/31/2023 9:12 PM EDT Timi Person MD POINT OF CARE TEST ORDERABLES Performing Organization Address [facility] [address]/[facility] Co de Phone Number [facility] [place] [address] * (ABNORMAL) Blood Gas, Arterial POC (10/31/2023 7:58 PM EDT) pH, Arterial 7.39 7.35 - 7.45 10/31/2023 7:59 PM EDT [facility] PCO2, Arterial 37 35 - 45 mmHg 10/31/2023 7:59 PM EDT [facility] PO2, Arterial 68(L) 85 - 104 mmHg 10/31/2023 7:59 PM EDT [facility] Bicarbonate, Arterial 21.7 20.0 - 26.0 mmol/L 10/31/2023 7:59 PM EDT [facility] Base Excess, Arterial -3.3(L) -3.0 - 3.0 mmol/L 10/31/2023 7:59 PM [facility] Hemoglobin, Arterial 9.8(L) 13.7 - 16.5 g/dL 10/31/2023 7:59 PM [facility] Oxyhemoglobin, Arterial 92.5(L) 94.0 - 97.0 % 10/31/2023 7:59 PM [facility] Carboxyhemoglobin , Arterial 0.1 % 10/31/2023 7:59 PM [facility] Comment: Nonsmokers: 0.5-1.5% COHB ?? Smokers: Variable ??but usually less than 10% ?? Toxic: 20-30% COHB ?? Lethal: Greater than 60% COHB Methemoglobin, Arterial 0.3 <=1.5 % 10/31/2023 7:59 PM [facility] Sodium, Arterial 131(L) 135 - 145 mmol/L 10/31/2023 7:59 PM [facility] Potassium, Arterial 5.2(H) 3.5 - 5.0 mmol/L 10/31/2023 7:59 PM [facility] Chloride, Arterial 102 98 - 107 mmol/L 10/31/2023 7:59 PM [facility] Lactate, Arterial 2.3(H) 0.5 - 2.2 mmol/L 10/31/2023 7:59 PM [facility] Fraction of Inspired Oxygen 60 % 10/31/2023 7:59 PM [facility] PF Ratio 113 Ratio 10/31/2023 7:59 PM [facility] Comment:PF ratio calculated using the non-temperature corrected pO2 result. IONIZED CALCIUM, ARTERIAL 1.11(L) 1.15 - 1.33 mmol/L 10/31/2023 7:59 PM [facility] Glucose, Arterial 161 65 - 199 mg/dL 10/31/2023 7:59 PM [facility] Comment:Glucose Concentratio n >=200 mg/dL plus symptoms is consistent with Diabetes Mellitus. Blood ARTERIAL BLOOD / Unknown 10/31/2023 7:58 PM EDT 10/31/2023 7:59 PM EDT Timi Person MD POINT OF CARE TEST ORDERABLES Performing Organization Address City/[facility] [address]/ZIP Co de Phone Number [facility] [place] [address] * (ABNORMAL) Potassium (10/31/2023 7:58 PM EDT) Potassium 5.3(H) 3.5 - 5.0 mMol/L 10/31/2023 8:36 PM EDT [facility] Blood VENOUS BLOOD SPECIMEN / Unknown IP Care Team Draw / Unknown 10/31/2023 7:58 PM EDT 10/31/2023 8:05 PM EDT Timi Person MD CHEMISTRY ORDERABLE S Performing Organization Address [facility] [address]/[facility] Co de Phone Number [facility] [place] [address] * POC, GLUCOSE (10/31/2023 6:55 PM EDT) Glucometer, POC 138 65 - 199 mg/dL 10/31/2023 6:55 PM EDT [facility] Comment:Supplemental ranges: <140 mg/dL before meals <180 mg/dL all other times of the day. Blood CAPILLARY BLOOD / Unknown 10/31/2023 6:55 PM EDT 10/31/2023 6:55 PM EDT Timi Person MD POINT OF CARE TEST ORDERABLES Performing Organization Address [facility] [address]/[facility] Co de Phone Number [facility] [place] [address] * POC, GLUCOSE (10/31/2023 6:05 PM EDT) Glucometer, POC 129 65 - 199 mg/dL 10/31/2023 6:06 PM EDT [facility] Comment:Supplemental ranges: <140 mg/dL before meals <180 mg/dL all other times of the day. Blood CAPILLARY BLOOD / Unknown 10/31/2023 6:05 PM EDT 10/31/2023 6:06 PM EDT Timi Person MD POINT OF CARE TEST ORDERABLES Performing Organization Address City/[facility] [address]/[facility] Co de Phone Number [facility] [place] [address] * POC, GLUCOSE (10/31/2023 5:10 PM EDT) Glucometer, POC 115 65 - 199 mg/dL 10/31/2023 5:10 PM EDT [facility] Comment:Supplemental ranges: <140 mg/dL before meals <180 mg/dL all other times of the day. Blood CAPILLARY BLOOD / Unknown 10/31/2023 5:10 PM EDT 10/31/2023 5:10 PM EDT Timi Person MD POINT OF CARE TEST ORDERABLES Performing Organization Address City/[facility] [address]/[facility] Co de Phone Number [facility] [place] [address] * (ABNORMAL) Blood Gas, Arterial POC (10/31/2023 3:57 PM EDT) pH, Arterial 7.40 7.35 - 7.45 10/31/2023 3:58 PM EDT [facility] PCO2, Arterial 37 35 - 45 mmHg 10/31/2023 3:58 PM EDT [facility] PO2, Arterial 73(L) 85 - 104 mmHg 10/31/2023 3:58 PM EDT [facility] Bicarbonate, Arterial 22.5 20.0 - 26.0 mmol/L 10/31/2023 3:58 PM EDT [facility] Base Excess, Arterial -2.3 -3.0 - 3.0 mmol/L 10/31/2023 3:58 PM [facility] Hemoglobin, Arterial 9.9(L) 13.7 - 16.5 g/dL 10/31/2023 3:58 PM [facility] Oxyhemoglobin, Arterial 93.8(L) 94.0 - 97.0 % 10/31/2023 3:58 PM [facility] Carboxyhemoglobin , Arterial 0.3 % 10/31/2023 3:58 PM [facility] Comment: Nonsmokers: 0.5-1.5% COHB ?? Smokers: Variable ??but usually less than 10% ?? Toxic: 20-30% COHB ?? Lethal: Greater than 60% COHB Methemoglobin, Arterial 0.3 <=1.5 % 10/31/2023 3:58 PM [facility] Sodium, Arterial 132(L) 135 - 145 mmol/L 10/31/2023 3:58 PM [facility] Potassium, Arterial 4.8 3.5 - 5.0 mmol/L 10/31/2023 3:58 PM [facility] Chloride, Arterial 104 98 - 107 mmol/L 10/31/2023 3:58 PM [facility] Lactate, Arterial 2.1 0.5 - 2.2 mmol/L 10/31/2023 3:58 PM [facility] Fraction of Inspired Oxygen 60 % 10/31/2023 3:58 PM [facility] PF Ratio 122 Ratio 10/31/2023 3:58 PM [facility] Comment:PF ratio calculated using the non-temperature corrected pO2 result. IONIZED CALCIUM, ARTERIAL 1.11(L) 1.15 - 1.33 mmol/L 10/31/2023 3:58 PM [facility] Glucose, Arterial 134 65 - 199 mg/dL 10/31/2023 3:58 PM [facility] Comment:Glucose Concentratio n >=200 mg/dL plus symptoms is consistent with Diabetes Mellitus. Blood ARTERIAL BLOOD / Unknown 10/31/2023 3:57 PM EDT 10/31/2023 3:58 PM EDT Timi Person MD POINT OF CARE TEST ORDERABLES [facility] [place] [address] * Potassium (10/31/2023 3:50 PM EDT) Potassium 4.8 3.5 - 5.0 mMol/L 10/31/2023 4:54 PM EDT [facility] Blood VENOUS BLOOD SPECIMEN / Unknown IP Care Team Draw / Unknown 10/31/2023 3:50 PM EDT 10/31/2023 4:03 PM EDT Timi Person MD CHEMISTRY ORDERABLE S Performing Organization Address City/[facility] [address]/ZIP Co de Phone Number [facility] [place] [address] * POC, GLUCOSE (10/31/2023 3:10 PM EDT) Glucometer, POC 156 65 - 199 mg/dL 10/31/2023 3:11 PM EDT [facility] Comment:Supplemental ranges: <140 mg/dL before meals <180 mg/dL all other times of the day. Blood CAPILLARY BLOOD / Unknown 10/31/2023 3:10 PM EDT 10/31/2023 3:11 PM EDT Timi Person MD POINT OF CARE TEST ORDERABLES [facility] [place] [address] * POC, GLUCOSE (10/31/2023 2:26 PM EDT) Glucometer, POC 154 65 - 199 mg/dL 10/31/2023 2:26 PM EDT [facility] Comment:Supplemental ranges: <140 mg/dL before meals <180 mg/dL all other times of the day. Blood CAPILLARY BLOOD / Unknown 10/31/2023 2:26 PM EDT 10/31/2023 2:26 PM EDT Timi Person MD POINT OF CARE TEST ORDERABLES Performing Organization Address [facility] [address]/[facility] Co de Phone Number [facility] [place] [address] * POC, GLUCOSE (10/31/2023 1:14 PM EDT) Glucometer, POC 149 65 - 199 mg/dL 10/31/2023 1:16 PM EDT [facility] Comment:Supplemental ranges: <140 mg/dL before meals <180 mg/dL all other times of the day. Blood CAPILLARY BLOOD / Unknown 10/31/2023 1:14 PM EDT 10/31/2023 1:16 PM EDT Timi Person MD POINT OF CARE TEST ORDERABLES Performing Organization Address City/[facility] [address]/[facility] Co de Phone Number [facility] [place] [address] * (ABNORMAL) Blood Gas, Arterial POC (10/31/2023 11:52 AM EDT) pH, Arterial 7.36 7.35 - 7.45 10/31/2023 11:54 AM EDT [facility] PCO2, Arterial 36 35 - 45 mmHg 10/31/2023 11:54 AM EDT [facility] PO2, Arterial 71(L) 85 - 104 mmHg 10/31/2023 11:54 AM EDT [facility] Bicarbonate, Arterial 20.0 20.0 - 26.0 mmol/L 10/31/2023 11:54 AM EDT [facility] Base Excess, Arterial -5.4(L) -3.0 - 3.0 mmol/L 10/31/2023 11:54 AM EDT [facility] Hemoglobin, Arterial 10.4(L) 13.7 - 16.5 g/dL 10/31/2023 11:54 AM [facility] Oxyhemoglobin, Arterial 93.3(L) 94.0 - 97.0 % 10/31/2023 11:54 AM [facility] Carboxyhemoglobin , Arterial 0.0 % 10/31/2023 11:54 AM [facility] Comment: Nonsmokers: 0.5-1.5% COHB ?? Smokers: Variable ??but usually less than 10% ?? Toxic: 20-30% COHB ?? Lethal: Greater than 60% COHB Methemoglobin, Arterial 0.3 <=1.5 % 10/31/2023 11:54 AM [facility] Sodium, Arterial 131(L) 135 - 145 mmol/L 10/31/2023 11:54 AM [facility] Potassium, Arterial 5.0 3.5 - 5.0 mmol/L 10/31/2023 11:54 AM [facility] Chloride, Arterial 103 98 - 107 mmol/L 10/31/2023 11:54 AM [facility] Lactate, Arterial 2.0 0.5 - 2.2 mmol/L 10/31/2023 11:54 AM [facility] Fraction of Inspired Oxygen 60 % 10/31/2023 11:54 AM [facility] PF Ratio 118 Ratio 10/31/2023 11:54 AM [facility] Comment:PF ratio calculated using the non-temperature corrected pO2 result. IONIZED CALCIUM, ARTERIAL 1.12(L) 1.15 - 1.33 mmol/L 10/31/2023 11:54 AM [facility] Glucose, Arterial 158 65 - 199 mg/dL 10/31/2023 11:54 AM [facility] Comment:Glucose Concentratio n >=200 mg/dL plus symptoms is consistent with Diabetes Mellitus. Blood ARTERIAL BLOOD / Unknown 10/31/2023 11:52 AM EDT 10/31/2023 11:53 AM EDT Timi Person MD POINT OF CARE TEST ORDERABLES [facility] [place] [address] * (ABNORMAL) Comprehensive metabolic panel (10/31/2023 11:48 AM EDT) Glucose 166 65 - 199 mg/dL 10/31/2023 12:44 PM EDT [facility] Comment:Glucose Concentratio n >=200 mg/dL plus symptoms is consistent with Diabetes Mellitus. Blood Urea Nitrogen 43(H) 10 - 20 mg/dL 10/31/2023 12:44 PM EDT [facility] Creatinine 4.00(H) 0.80 - 1.50 mg/dL 10/31/2023 12:44 PM EDT [facility] Sodium 135 135 - 145 mMol/L 10/31/2023 12:44 PM EDT [facility] Potassium 5.3(H) 3.5 - 5.0 mMol/L 10/31/2023 12:44 PM EDT [facility] Chloride 103 98 - 107 mMol/L 10/31/2023 12:44 PM EDT [facility] Carbon Dioxide 20(L) 22 - 31 mMol/L 10/31/2023 12:44 PM EDT [facility] Anion Gap 12 5 - 15 mMol/L 10/31/2023 12:44 PM EDT [facility] Calcium 8.1(L) 8.5 - 10.5 mg/dL 10/31/2023 12:44 PM EDT [facility] Protein, Total 5.3(L) 6.1 - 8.0 g/dL 10/31/2023 12:44 PM EDT [facility] Albumin 2.9(L) 3.2 - 5.2 g/dL 10/31/2023 12:44 PM EDT [facility] Aspartate Aminotransferase 24 <=39 unit/L 10/31/2023 12:44 PM EDT [facility] Alanine Aminotransferase 14 0 - 55 unit/L 10/31/2023 12:44 PM EDT [facility] Alkaline Phosphatase 58 40 - 130 unit/L 10/31/2023 12:44 PM EDT [facility] Bilirubin, Total 0.3 <=1.3 mg/dL 10/31/2023 12:44 PM EDT [facility] Est Glomerular Filtration Rate - Male 18 mL/min/1. 73 m?? 10/31/2023 12:44 PM EDT [facility] Comment: This patient's estimated [...] PM EDT Janie Smith MD CHEMISTRY ORDERABLES [facility] [place] [address] * POC, GLUCOSE (10/31/2023 10:15 AM EDT) Glucometer, POC 177 65 - 199 mg/dL 10/31/2023 10:15 AM EDT [facility] Comment:Supplemental ranges: <140 mg/dL before meals <180 mg/dL all other times of the day. Blood CAPILLARY BLOOD / Unknown 10/31/2023 10:15 AM EDT 10/31/2023 10:16 AM EDT Timi Person MD POINT OF CARE TEST ORDERABLES [facility] [place] [address] * (ABNORMAL) Blood Gas, Arterial POC (10/31/2023 9:04 AM EDT) pH, Arterial 7.30(L) 7.35 - 7.45 10/31/2023 9:05 AM EDT [facility] PCO2, Arterial 48(H) 35 - 45 mmHg 10/31/2023 9:05 AM EDT [facility] PO2, Arterial 79(L) 85 - 104 mmHg 10/31/2023 9:05 AM EDT [facility] Bicarbonate, Arterial 23.0 20.0 - 26.0 mmol/L 10/31/2023 9:05 AM [facility] Base Excess, Arterial -3.4(L) -3.0 - 3.0 mmol/L 10/31/2023 9:05 AM EDT [facility] Hemoglobin, Arterial 10.9(L) 13.7 - 16.5 g/dL 10/31/2023 9:05 AM [facility] Oxyhemoglobin, Arterial 94.0 94.0 - 97.0 % 10/31/2023 9:[facility] Carboxyhemoglobin , Arterial 0.5 % 10/31/2023 9:05 AM EDT [facility] Comment: Nonsmokers: 0.5-1.5% COHB ?? Smokers: Variable ??but usually less than 10% ?? Toxic: 20-30% COHB ?? Lethal: Greater than 60% COHB Methemoglobin, Arterial 0.3 <=1.5 % 10/31/2023 9:05 AM EDT [facility] Sodium, Arterial 132(L) 135 - 145 mmol/L 10/31/2023 9:05 AM EDT [facility] Potassium, Arterial 5.6(H) 3.5 - 5.0 mmol/L 10/31/2023 9:05 AM EDT [facility] Chloride, Arterial 103 98 - 107 mmol/L 10/31/2023 9:05 AM EDT [facility] Lactate, Arterial 2.1 0.5 - 2.2 mmol/L 10/31/2023 9:05 AM EDT [facility] Fraction of Inspired Oxygen 60 % 10/31/2023 9:05 AM EDT [facility] PF Ratio 132 Ratio 10/31/2023 9:05 AM EDT [facility] Comment:PF ratio calculated using the non-temperature corrected pO2 result. IONIZED CALCIUM, ARTERIAL 1.15 1.15 - 1.33 mmol/L 10/31/2023 9:05 AM EDT [facility] Glucose, Arterial 197 65 - 199 mg/dL 10/31/2023 9:05 AM EDT [facility] Comment:Glucose Concentratio n >=200 mg/dL plus symptoms is consistent with Diabetes Mellitus. Blood ARTERIAL BLOOD / Unknown 10/31/2023 9:04 AM EDT 10/31/2023 9:05 AM EDT Timi Person MD POINT OF CARE TEST ORDERABLES [facility] [place] [address] * (ABNORMAL) Potassium (10/31/2023 8:53 AM EDT) Potassium 5.7(H) 3.5 - 5.0 mMol/L 10/31/2023 9:50 AM EDT [facility] Blood VENOUS BLOOD SPECIMEN / Unknown IP Care Team Draw / Unknown 10/31/2023 8:53 AM EDT 10/31/2023 9:08 AM EDT Timi Person MD CHEMISTRY ORDERABLE S [facility] [place] [address] * POC, GLUCOSE (10/31/2023 7:54 AM EDT) Glucometer, POC 196 65 - 199 mg/dL 10/31/2023 7:55 AM EDT [facility] Comment:Supplemental ranges: <140 mg/dL before meals <180 mg/dL all other times of the day. Blood CAPILLARY BLOOD / Unknown 10/31/2023 7:54 AM EDT 10/31/2023 7:55 AM EDT Timi Person MD POINT OF CARE TEST ORDERABLES [facility] [place] [address] * (ABNORMAL) POC, GLUCOSE (10/31/2023 6:53 AM EDT) Glucometer, POC 208(H) 65 - 199 mg/dL 10/31/2023 6:54 AM EDT [facility] Comment:Supplemental ranges: <140 mg/dL before meals <180 mg/dL all other times of the day. Blood CAPILLARY BLOOD / Unknown 10/31/2023 6:53 AM EDT 10/31/2023 6:54 AM EDT Timi Person MD POINT OF CARE TEST ORDERABLES [facility] [place] [address] * (ABNORMAL) Blood Gas, Arterial POC (10/31/2023 5:56 AM EDT) pH, Arterial 7.31(L) 7.35 - 7.45 10/31/2023 5:57 AM EDT [facility] PCO2, Arterial 44 35 - 45 mmHg 10/31/2023 5:57 AM EDT [facility] PO2, Arterial 76(L) 85 - 104 mmHg 10/31/2023 5:57 AM EDT [facility] Bicarbonate, Arterial 21.8 20.0 - 26.0 mmol/L 10/31/2023 5:57 AM [facility] Base Excess, Arterial -4.5(L) -3.0 - 3.0 mmol/L 10/31/2023 5:57 AM [facility] Hemoglobin, Arterial 10.8(L) 13.7 - 16.5 g/dL 10/31/2023 5:57 AM [facility] Oxyhemoglobin, Arterial 93.2(L) 94.0 - 97.0 % 10/31/2023 5:57 AM [facility] Carboxyhemoglobin , Arterial 0.6 % 10/31/2023 5:57 AM [facility] Comment: Nonsmokers: 0.5-1.5% COHB ?? Smokers: Variable ??but usually less than 10% ?? Toxic: 20-30% COHB ?? Lethal: Greater than 60% COHB Methemoglobin, Arterial 0.3 <=1.5 % 10/31/2023 5:57 AM [facility] Sodium, Arterial 132(L) 135 - 145 mmol/L 10/31/2023 5:57 AM [facility] Potassium, Arterial 4.9 3.5 - 5.0 mmol/L 10/31/2023 5:57 AM [facility] Chloride, Arterial 103 98 - 107 mmol/L 10/31/2023 5:57 AM [facility] Lactate, Arterial 2.0 0.5 - 2.2 mmol/L 10/31/2023 5:57 AM [facility] Fraction of Inspired Oxygen 60 % 10/31/2023 5:57 AM [facility] PF Ratio 127 Ratio 10/31/2023 5:57 AM [facility] Comment:PF ratio calculated using the non-temperature corrected pO2 result. IONIZED CALCIUM, ARTERIAL 1.15 1.15 - 1.33 mmol/L 10/31/2023 5:57 AM EDT [facility] Glucose, Arterial 220(H) 65 - 199 mg/dL 10/31/2023 5:57 AM EDT [facility] Comment:Glucose Concentratio n >=200 mg/dL plus symptoms is consistent with Diabetes Mellitus. Blood ARTERIAL BLOOD / Unknown 10/31/2023 5:56 AM EDT 10/31/2023 5:57 AM EDT Timi Person MD POINT OF CARE TEST ORDERABLES Performing Organization Address [facility] [address]/[facility] de Phone Number [facility] [place] [address] * (ABNORMAL) POC, GLUCOSE (10/31/2023 4:59 AM EDT) Glucometer, POC 273(H) 65 - 199 mg/dL 10/31/2023 4:59 AM EDT [facility] Comment:Supplemental ranges: <140 mg/dL before meals <180 mg/dL all other times of the day. Blood CAPILLARY BLOOD / Unknown 10/31/2023 4:59 AM EDT 10/31/2023 4:59 AM EDT Timi Person MD POINT OF CARE TEST ORDERABLES Performing Organization Address [facility] de Phone Number [facility] [place] [address] * (ABNORMAL) POC, GLUCOSE (10/31/2023 3:57 AM EDT) Glucometer, POC 303(H) 65 - 199 mg/dL 10/31/2023 3:57 AM EDT [facility] Comment:Supplemental ranges: <140 mg/dL before meals <180 mg/dL all other times of the day. Blood CAPILLARY BLOOD / Unknown 10/31/2023 3:57 AM EDT 10/31/2023 3:57 AM EDT Timi Person MD POINT OF CARE TEST ORDERABLES Performing Organization Address City/[facility] [address]/[facility] Co de Phone Number [facility] [place] [address] * (ABNORMAL) Cooximetry, POC (10/31/2023 3:01 AM EDT) pO2, Coox 29 mmHg 10/31/2023 3:03 AM EDT [facility] Hemoglobin, Coox 10.9(L) 13.7 - 16.5 g/dL 10/31/2023 3:03 AM EDT [facility] Oxyhemoglobin, Coox 53.4 % 10/31/2023 3:03 AM EDT [facility] Carboxyhemoglo bin, Coox 0.9 % 10/31/2023 3:03 AM EDT [facility] Comment: Nonsmokers: 0.5-1.5% COHB ?? Smokers: Variable ??but usually less than 10% ?? Toxic: 20-30% COHB ?? Lethal: Greater than 60% COHB Methemoglobin, Coox 0.3 <=1.5 % 10/31/2023 3:03 AM EDT [facility] Blood (Mixed Venous) 10/31/2023 3:01 AM EDT 10/31/2023 3:03 AM EDT Timi Person MD POINT OF CARE TEST ORDERABLES [facility] [place] [address] * (ABNORMAL) Blood Gas, Arterial POC (10/31/2023 2:57 AM EDT) pH, Arterial 7.28(LLL) 7.35 - 7.45 10/31/2023 2:58 AM EDT [facility] PCO2, Arterial 46(H) 35 - 45 mmHg 10/31/2023 2:58 AM EDT [facility] PO2, Arterial 77(L) 85 - 104 mmHg 10/31/2023 2:58 AM EDT [facility] Bicarbonate, Arterial 21.1 20.0 - 26.0 mmol/L 10/31/2023 2:58 AM [facility] Base Excess, Arterial -5.6(L) -3.0 - 3.0 mmol/L 10/31/2023 2:58 AM [facility] Hemoglobin, Arterial 10.8(L) 13.7 - 16.5 g/dL 10/31/2023 2:58 AM [facility] Oxyhemoglobin, Arterial 93.2(L) 94.0 - 97.0 % 10/31/2023 2:58 AM [facility] Carboxyhemoglobin , Arterial 0.3 % 10/31/2023 2:58 AM [facility] Comment: Nonsmokers: 0.5-1.5% COHB ?? Smokers: Variable ??but usually less than 10% ?? Toxic: 20-30% COHB ?? Lethal: Greater than 60% COHB Methemoglobin, Arterial 0.3 <=1.5 % 10/31/2023 2:58 AM [facility] Sodium, Arterial 133(L) 135 - 145 mmol/L 10/31/2023 2:58 AM [facility] Potassium, Arterial 4.7 3.5 - 5.0 mmol/L 10/31/2023 2:58 AM [facility] Chloride, Arterial 103 98 - 107 mmol/L 10/31/2023 2:58 AM [facility] Lactate, Arterial 2.0 0.5 - 2.2 mmol/L 10/31/2023 2:58 AM [facility] Fraction of Inspired Oxygen 60 % 10/31/2023 2:58 AM [facility] PF Ratio 128 Ratio 10/31/2023 2:58 AM [facility] Comment:PF ratio calculated using the non-temperature corrected pO2 result. IONIZED CALCIUM, ARTERIAL 1.18 1.15 - 1.33 mmol/L 10/31/2023 2:58 AM [facility] Glucose, Arterial 270(H) 65 - 199 mg/dL 10/31/2023 2:58 AM EDT [facility] Comment:Glucose Concentratio n >=200 mg/dL plus symptoms is consistent with Diabetes Mellitus. Blood ARTERIAL BLOOD / Unknown 10/31/2023 2:57 AM EDT 10/31/2023 2:58 AM EDT Timi Person MD POINT OF CARE TEST ORDERABLES [facility] [place] [address] * XR Chest One View (10/31/2023 2:43 AM EDT) WORKSTATION ID [id number] RAD Anatomical Region Laterality Modality Chest N/A [...] who have questions please contact the health healthcare account manager that requested your imaging first. ? Narrative [...] patients who have questions please contactthe health healthcare account manager that requested your imaging first. Timi Person MD IMG DX ORDERABLES * (ABNORMAL) Blood Gas, Arterial POC (10/31/2023 1:38 AM EDT) pH, Arterial 7.30(L) 7.35 - 7.45 10/31/2023 1:39 AM [facility] PCO2, Arterial 44 35 - 45 mmHg 10/31/2023 1:39 AM [facility] PO2, Arterial 65(L) 85 - 104 mmHg 10/31/2023 1:39 AM [facility] Bicarbonate, Arterial 21.1 20.0 - 26.0 mmol/L 10/31/2023 1:39 AM [facility] Base Excess, Arterial -5.3(L) -3.0 - 3.0 mmol/L 10/31/2023 1:39 AM [facility] Hemoglobin, Arterial 11.4(L) 13.7 - 16.5 g/dL 10/31/2023 1:39 AM [facility] Oxyhemoglobin, Arterial 90.9(L) 94.0 - 97.0 % 10/31/2023 1:39 AM [facility] Carboxyhemoglobin , Arterial 0.5 % 10/31/2023 1:39 AM [facility] Comment: Nonsmokers: 0.5-1.5% COHB ?? Smokers: Variable ??but usually less than 10% ?? Toxic: 20-30% COHB ?? Lethal: Greater than 60% COHB Methemoglobin, Arterial 0.3 <=1.5 % 10/31/2023 1:39 AM [facility] Sodium, Arterial 132(L) 135 - 145 mmol/L 10/31/2023 1:39 AM [facility] Potassium, Arterial 4.7 3.5 - 5.0 mmol/L 10/31/2023 1:39 AM [facility] Chloride, Arterial 102 98 - 107 mmol/L 10/31/2023 1:39 AM [facility] Lactate, Arterial 2.2 0.5 - 2.2 mmol/L 10/31/2023 1:39 AM EDT [facility] Fraction of Inspired Oxygen 50 % 10/31/2023 1:39 AM EDT [facility] PF Ratio 130 Ratio 10/31/2023 1:39 AM EDT [facility] Comment:PF ratio calculated using the non-temperature corrected pO2 result. IONIZED CALCIUM, ARTERIAL 1.21 1.15 - 1.33 mmol/L 10/31/2023 1:39 AM EDT [facility] Glucose, Arterial 302(H) 65 - 199 mg/dL 10/31/2023 1:39 AM EDT [facility] Comment:Glucose Concentratio n >=200 mg/dL plus symptoms is consistent with Diabetes Mellitus. Blood ARTERIAL BLOOD / Unknown 10/31/2023 1:38 AM EDT 10/31/2023 1:39 AM EDT Timi Person MD POINT OF CARE TEST ORDERABLES [facility] [place] [address] * (ABNORMAL) Hemoglobin A1c (10/31/2023 1:37 AM EDT) Hemoglobin A1c 9.5(H) 4.3 - 5.6 % 10/31/2023 11:51 AM EDT [facility] Comment: Per ADA guidelines, without clear [...] red blood cell turnover may not be workforce services representative of glycemic control. Reference Interval: 4.3 - 5.6% 5.7 - 6.4%: Consistent with prediabetes >=6.5%: Consistent with diagnosis of diabetes mellitus Estimated Average Glucose 226 mg/dL 10/31/2023 11:51 AM EDT [facility] Blood VENOUS BLOOD SPECIMEN / Unknown IP Care Team Draw / Unknown 10/31/2023 1:37 AM EDT 10/31/2023 1:42 AM EDT Timi Person MD CHEMISTRY ORDERABLE S Performing Organization Address City/[facility] [address]/ZIP Co de Phone Number [facility] [place] [address] * Scan, Peripheral Blood (10/31/2023 1:37 AM EDT) RBC Morphology Abnormal 10/31/2023 2:30 AM EDT [facility] Platelet Estimate Normal Normal 024 2:30 AM EDT [facility] Macrocyte 1-5 /HPF 10/31/2023 2:30 AM EDT [facility] Microcyte 6-10 /HPF 10/31/2023 2:30 AM EDT [facility] Polychromasia Present 10/31/2023 2:30 AM EDT [facility] Ovalocytes 1-5 /HPF 10/31/2023 2:30 AM EDT [facility] [place] cells 1-5 /HPF 10/31/2023 2:30 AM EDT [facility] Blood VENOUS BLOOD SPECIMEN / Unknown IP Care Team Draw / Unknown 10/31/2023 1:37 AM EDT 10/31/2023 1:42 AM EDT Timi Person MD HEMATOLOGY ORDERABL ES Performing Organization Address City/[facility] [address]/ZIP Co de Phone Number [facility] [place] [address] * (ABNORMAL) Basic Metabolic Panel (10/31/2023 1:37 AM EDT) Glucose 298(H) 65 - 199 mg/dL 10/31/2023 2:38 AM EDT [facility] Comment:Glucose Concentratio n >=200 mg/dL plus symptoms is consistent with Diabetes Mellitus. Blood Urea Nitrogen 41(H) 10 - 20 mg/dL 10/31/2023 2:38 AM [facility] Creatinine 3.62(H) 0.80 - 1.50 mg/dL 10/31/2023 2:38 AM [facility] Sodium 135 135 - 145 mMol/L 10/31/2023 2:38 AM [facility] Potassium 4.8 3.5 - 5.0 mMol/L 10/31/2023 2:38 AM [facility] Chloride 102 98 - 107 mMol/L 10/31/2023 2:38 AM [facility] Carbon Dioxide 20(L) 22 - 31 mMol/L 10/31/2023 2:38 AM [facility] Anion Gap 13 5 - 15 mMol/L 10/31/2023 2:38 AM [facility] Calcium 8.4(L) 8.5 - 10.5 mg/dL 10/31/2023 2:38 AM [facility] Est Glomerular Filtration Rate - Male 20 mL/min/1. 73 m?? 10/31/2023 2:38 AM [facility] Comment: This patient's estimated GFR was [...] EDT Timi Person MD CHEMISTRY ORDERABLE S [facility] [place] [address] * (ABNORMAL) CBC (with Diff) (10/31/2023 1:37 AM EDT) White Blood Cell 17.30(H) 4.00 - 9.50 x10(3)/mc L 10/31/2023 2:30 AM EDT [facility] Red Blood Cell 5.27 4.58 - 5.54 x10(6)/mc L 10/31/2023 2:30 AM EDT [facility] Hemoglobin 10.6(L) 13.7 - 16.5 g/dL 10/31/2023 2:30 AM EDT [facility] Hematocrit 35.7(L) 40.5 - 48.5 % 10/31/2023 2:30 AM EDT [facility] Mean Cell Volume 67.7(L) 82.9 - 93.1 fL 10/31/2023 2:30 AM EDT [facility] Mean Cell Hemoglobin 20.1(L) 27.5 - 32.1 pg 10/31/2023 2:30 AM EDT [facility] Mean Cell Hemoglobin Concentration 29.7(L) 32.0 - 35.7 g/dL 10/31/2023 2:30 AM EDT [facility] Platelet 274 145 - 357 x10(3)/mc L 10/31/2023 2:30 AM EDT [facility] Mean Platelet Volume 10.4 7.6 - 12.9 fL 10/31/2023 2:30 AM EDT [facility] RDW Standard Deviation 44.9 36.0 - 45.0 fL 10/31/2023 2:30 AM EDT [facility] RDW coefficient of variation 19.5(H) 11.4 - 13.8 % 10/31/2023 2:30 AM EDT [facility] NRBC% auto 0.0 % 10/31/2023 2:30 AM EDT [facility] NRBC Absolute 0.00 0.00 - 0.00 x10(3)/mc L 10/31/2023 2:30 AM EDT [facility] Neutrophil % 78.8 % 10/31/2023 2:30 AM EDT [facility] Neutrophil Absolute (ANC) - Automated 13.63(H) 1.70 - 6.10 x10(3)/mc L 10/31/2023 2:30 AM EDT [facility] Lymph % 10.2 % 10/31/2023 2:30 AM EDT [facility] Lymph Absolute 1.77 0.90 - 3.20 x10(3)/mc L 10/31/2023 2:30 AM EDT [facility] Monocyte % 9.7 % 10/31/2023 2:30 AM EDT [facility] Monocyte Absolute 1.68(H) 0.30 - 0.90 x10(3)/mc L 10/31/2023 2:30 AM EDT [facility] Eos % 0.2 % 10/31/2023 2:30 AM EDT [facility] Eos Absolute 0.04 0.00 - 0.40 x10(3)/mc L 10/31/2023 2:30 AM EDT [facility] Basophil % 0.3 % 10/31/2023 2:30 AM EDT [facility] Baso Absolute 0.05 0.00 - 0.10 x10(3)/mc L 10/31/2023 2:30 AM EDT [facility] Immature Gran % 0.8 % 2:30 AM EDT [facility] Immature Gran Absolute 0.13(H) 0.00 - 0.04 x10(3)/mc L 10/31/2023 2:30 AM [facility] Blood VENOUS BLOOD SPECIMEN / Unknown IP Care Team Draw / Unknown 10/31/2023 1:37 AM EDT 10/31/2023 1:42 AM EDT Timi Person MD HEMATOLOGY ORDERABL ES Performing Organization Address City/[facility] [address]/ZIP Co de Phone Number [facility] [place] [address] * (ABNORMAL) Troponin - Single (10/31/2023 1:37 AM EDT) Troponin-T, High Sensitivity 834(H) <=22 ng/L 10/31/2023 2:16 AM EDT [facility] Comment: This patient's troponin T concentration [...] troponin value can be found in the [facility] Test Catalog Troponin - [email or web address] Reference: Fourth [place] Definition of Myocardial Infarction. Journal of the [place] [employer] 2018;72:0041-9096 Blood VENOUS BLOOD SPECIMEN / Unknown IP Care Team Draw / Unknown 10/31/2023 1:37 AM EDT 10/31/2023 1:42 AM EDT Timi Person MD CHEMISTRY ORDERABLE S [facility] [place] [address] * Lipoprotein A (10/31/2023 1:37 AM EDT) Lipoprotein(A) June 30 <75 nmol/L 11/03/2023 5:38 PM EDT [facility] Comment: ADDITIONAL INFORMATION Please notice that Lp(a) values are reported in molar units (nmol/L). ??These units are recommended by professional society guidelines and expert opinion statements. ??Measured results and risk thresholds are higher than those generated using mass units (mg/dL). Cardiovascular risk increases starting at 75 nmol/L. Lp(a) >=125 nmol/L is considered a risk enhancing factor by the [place] [employer]. This test has been modified from the group managing director's instructions. Its performance characteristics were determined by [facility] in a manner consistent with CLIA requirements. This test has not been cleared or approved by the U.S. Food and Drug Administration. Blood VENOUS BLOOD SPECIMEN / Unknown IP Care Team Draw / Unknown 10/31/2023 1:37 AM EDT 10/31/2023 1:42 AM EDT Narrative [facility] - 11/03/2023 5:38 PM EDT Test Performed by: [place] [address] [employer] Engine Pump Operator: Hugo Betancourt Ph.D.; CLIA# [id number] Janie Smith MD LAB SEND OUT ORDERAB LES Performing Organization Address City/State/[facility] Co de Phone Number [facility] [address] [place] [address] * (ABNORMAL) POC, GLUCOSE (10/31/2023 1:00 AM EDT) Pathologist [facility] Glucometer, POC 330(H) 65 - 199 mg/dL 10/31/2023 1:01 AM EDT [facility] Comment:Supplemental ranges: <140 mg/dL before meals <180 mg/dL all other times of the day. Blood CAPILLARY BLOOD / Unknown 10/31/2023 1:00 AM EDT 10/31/2023 1:01 AM EDT Timi Person MD POINT OF CARE TEST ORDERABLES [facility] [place] [address] * (ABNORMAL) POC, GLUCOSE (10/30/2023 11:56 PM EDT) Glucometer, POC 349(H) 65 - 199 mg/dL 10/30/2023 11:56 PM EDT [facility] Comment:Supplemental ranges: <140 mg/dL before meals <180 mg/dL all other times of the day. Blood CAPILLARY BLOOD / Unknown 10/30/2023 11:56 PM EDT 10/30/2023 11:56 PM EDT Timi Person MD POINT OF CARE TEST ORDERABLES [facility] [place] [address] * (ABNORMAL) POC, GLUCOSE (10/30/2023 11:02 PM EDT) Glucometer, POC 358(H) 65 - 199 mg/dL 10/30/2023 11:03 PM EDT [facility] Comment:Supplemental ranges: <140 mg/dL before meals <180 mg/dL all other times of the day. Blood CAPILLARY BLOOD / Unknown 10/30/2023 11:02 PM EDT 10/30/2023 11:03 PM EDT Timi Person MD POINT OF CARE TEST ORDERABLES [facility] [place] [address] * (ABNORMAL) POC, GLUCOSE (10/30/2023 10:36 PM EDT) Glucometer, POC 384(H) 65 - 199 mg/dL 10/30/2023 10:36 PM EDT [facility] Comment:Supplemental ranges: <140 mg/dL before meals <180 mg/dL all other times of the day. Blood CAPILLARY BLOOD / Unknown 10/30/2023 10:36 PM EDT 10/30/2023 10:36 PM EDT Timi Person MD POINT OF CARE TEST ORDERABLES Performing Organization Address City/[facility] [address]/[facility] Co de Phone Number [facility] [place] [address] * (ABNORMAL) POC, GLUCOSE (10/30/2023 10:06 PM EDT) Glucometer, POC 420(H) 65 - 199 mg/dL 10/30/2023 10:06 PM EDT [facility] Comment:Supplemental ranges: <140 mg/dL before meals <180 mg/dL all other times of the day. Blood CAPILLARY BLOOD / Unknown 10/30/2023 10:06 PM EDT 10/30/2023 10:06 PM EDT Timi Person MD POINT OF CARE TEST ORDERABLES Performing Organization Address [facility] [address]/[facility] Co de Phone Number [facility] [place] [address] * (ABNORMAL) Blood Gas, Arterial POC (10/30/2023 9:30 PM EDT) pH, Arterial 7.32(L) 7.35 - 7.45 10/30/2023 9:32 PM EDT [facility] PCO2, Arterial 41 35 - 45 mmHg 10/30/2023 9:32 PM EDT [facility] PO2, Arterial 67(L) 85 - 104 mmHg 10/30/2023 9:32 PM EDT [facility] Bicarbonate, Arterial 20.4 20.0 - 26.0 mmol/L 10/30/2023 9:32 PM EDT [facility] Base Excess, Arterial -5.8(L) -3.0 - 3.0 mmol/L 10/30/2023 9:32 PM EDT [facility] Hemoglobin, Arterial 11.3(L) 13.7 - 16.5 g/dL 10/30/2023 9:32 PM [facility] Oxyhemoglobin, Arterial 90.9(L) 94.0 - 97.0 % 10/30/2023 9:32 PM [facility] Carboxyhemoglobin , Arterial 0.7 % 10/30/2023 9:32 PM [facility] Comment: Nonsmokers: 0.5-1.5% COHB ?? Smokers: Variable ??but usually less than 10% ?? Toxic: 20-30% COHB ?? Lethal: Greater than 60% COHB Methemoglobin, Arterial 0.3 <=1.5 % 10/30/2023 9:32 PM [facility] Sodium, Arterial 130(L) 135 - 145 mmol/L 10/30/2023 9:32 PM [facility] Potassium, Arterial 5.9(H) 3.5 - 5.0 mmol/L 10/30/2023 9:32 PM [facility] Chloride, Arterial 103 98 - 107 mmol/L 10/30/2023 9:32 PM [facility] Lactate, Arterial 2.2 0.5 - 2.2 mmol/L 10/30/2023 9:32 PM [facility] Fraction of Inspired Oxygen 40 % 10/30/2023 9:32 PM [facility] PF Ratio 168 Ratio 10/30/2023 9:32 PM [facility] Comment:PF ratio calculated using the non-temperature corrected pO2 result. IONIZED CALCIUM, ARTERIAL 1.13(L) 1.15 - 1.33 mmol/L 10/30/2023 9:32 PM [facility] Glucose, Arterial 400(H) 65 - 199 mg/dL 10/30/2023 9:32 PM [facility] Comment:Glucose Concentratio n >=200 mg/dL plus symptoms is consistent with Diabetes Mellitus. Blood ARTERIAL BLOOD / Unknown 10/30/2023 9:30 PM EDT 10/30/2023 9:32 PM EDT Timi Person MD POINT OF CARE TEST ORDERABLES Performing Organization Address City/[facility] [address]/ZIP Co de Phone Number [facility] [place] [address] * (ABNORMAL) POC, GLUCOSE (10/30/2023 8:54 PM EDT) Glucometer, POC 395(H) 65 - 199 mg/dL 10/30/2023 8:54 PM EDT [facility] Comment:Supplemental ranges: <140 mg/dL before meals <180 mg/dL all other times of the day. Blood CAPILLARY BLOOD / Unknown 10/30/2023 8:54 PM EDT 10/30/2023 8:54 PM EDT Timi Person MD POINT OF CARE TEST ORDERABLES Performing Organization Address City/[facility] [address]/ZIP Co de Phone Number [facility] [place] [address] * (ABNORMAL) Potassium (10/30/2023 8:50 PM EDT) Potassium 6.1(HHH) 3.5 - 5.0 mMol/L 10/30/2023 9:30 PM EDT [facility] Blood VENOUS BLOOD SPECIMEN / Unknown IP Care Team Draw / Unknown 10/30/2023 8:50 PM EDT 10/30/2023 8:54 PM EDT Timi Person MD CHEMISTRY ORDERABLE S Performing Organization Address City/[facility] [address]/ZIP Co de Phone Number [facility] [place] [address] * (ABNORMAL) POC, GLUCOSE (10/30/2023 8:04 PM EDT) Glucometer, POC 448(H) 65 - 199 mg/dL 10/30/2023 8:04 PM EDT [facility] Comment:Supplemental ranges: <140 mg/dL before meals <180 mg/dL all other times of the day. Blood CAPILLARY BLOOD / Unknown 10/30/2023 8:04 PM EDT 10/30/2023 8:04 PM EDT Timi Person MD POINT OF CARE TEST ORDERABLES Performing Organization Address City/[facility] [address]/[facility] Co de Phone Number [facility] [place] [address] * (ABNORMAL) POC, GLUCOSE (10/30/2023 7:34 PM EDT) Glucometer, POC 419(H) 65 - 199 mg/dL 10/30/2023 7:34 PM EDT [facility] Comment:Supplemental ranges: <140 mg/dL before meals <180 mg/dL all other times of the day. Blood CAPILLARY BLOOD / Unknown 10/30/2023 7:34 PM EDT 10/30/2023 7:35 PM EDT Timi Person MD POINT OF CARE TEST ORDERABLES Performing Organization Address [facility] [address]/[facility] Co de Phone Number [facility] [place] [address] * (ABNORMAL) POC, GLUCOSE (10/30/2023 6:11 PM EDT) Glucometer, POC 357(H) 65 - 199 mg/dL 10/30/2023 6:11 PM EDT [facility] Comment:Supplemental ranges: <140 mg/dL before meals <180 mg/dL all other times of the day. Blood CAPILLARY BLOOD / Unknown 10/30/2023 6:11 PM EDT 10/30/2023 6:12 PM EDT Timi Person MD POINT OF CARE TEST ORDERABLES Performing Organization Address City/[facility] [address]/[facility] Co de Phone Number [facility] [place] [address] * (ABNORMAL) Blood Gas, Arterial POC (10/30/2023 5:03 PM [facility]) pH, Arterial 7.24(LLL) 7.35 - 7.45 10/30/2023 5:05 PM [facility] PCO2, Arterial 48(H) 35 - 45 mmHg 10/30/2023 5:05 PM [facility] PO2, Arterial 70(L) 85 - 104 mmHg 10/30/2023 5:05 PM [facility] Bicarbonate, Arterial 20.0 20.0 - 26.0 mmol/L 10/30/2023 5:05 PM [facility] Base Excess, Arterial -7.5(L) -3.0 - 3.0 mmol/L 10/30/2023 5:05 PM [facility] Hemoglobin, Arterial 11.9(L) 13.7 - 16.5 g/dL 10/30/2023 5:05 PM [facility] Oxyhemoglobin, Arterial 90.4(L) 94.0 - 97.0 % 10/30/2023 5:05 PM [facility] Carboxyhemoglobin , Arterial 0.6 % 10/30/2023 5:05 PM [facility] Comment: Nonsmokers: 0.5-1.5% COHB ?? Smokers: Variable ??but usually less than 10% ?? Toxic: 20-30% COHB ?? Lethal: Greater than 60% COHB Methemoglobin, Arterial 0.3 <=1.5 % 10/30/2023 5:05 PM [facility] Sodium, Arterial 131(L) 135 - 145 mmol/L 10/30/2023 5:05 PM [facility] Potassium, Arterial 6.6(HHH) 3.5 - 5.0 mmol/L 10/30/2023 5:05 PM [facility] Chloride, Arterial 104 98 - 107 mmol/L 10/30/2023 5:05 PM [facility] Lactate, Arterial 1.6 0.5 - 2.2 mmol/L 10/30/2023 5:05 PM EDT [facility] Fraction of Inspired Oxygen 40 % 10/30/2023 5:05 PM EDT [facility] PF Ratio 175 Ratio 10/30/2023 5:05 PM EDT [facility] Comment:PF ratio calculated using the non-temperature corrected pO2 result. IONIZED CALCIUM, ARTERIAL 1.17 1.15 - 1.33 mmol/L 10/30/2023 5:05 PM EDT [facility] Glucose, Arterial 373(H) 65 - 199 mg/dL 10/30/2023 5:05 PM EDT [facility] Comment:Glucose Concentratio n >=200 mg/dL plus symptoms is consistent with Diabetes Mellitus. Blood ARTERIAL BLOOD / Unknown 10/30/2023 5:03 PM EDT 10/30/2023 5:05 PM EDT Timi Person MD POINT OF CARE TEST ORDERABLES Performing Organization Address City/[facility] [address]/ZIP Co de Phone Number [facility] [place] [address] * (ABNORMAL) Hemoglobin (10/30/2023 4:57 PM EDT) Hemoglobin 10.8(L) 13.7 - 16.5 g/dL 10/30/2023 5:51 PM EDT [facility] Blood VENOUS BLOOD SPECIMEN / Unknown IP Care Team Draw / Unknown 10/30/2023 4:57 PM EDT 10/30/2023 5:09 PM EDT Timi Person MD [place] [address] * (ABNORMAL) Potassium (10/30/2023 4:57 PM EDT) Potassium 6.8(HHH) 3.5 - 5.0 mMol/L 10/30/2023 5:44 PM EDT [facility] Comment:Results rechecked Blood VENOUS BLOOD SPECIMEN / Unknown IP Care Team Draw / Unknown 10/30/2023 4:57 PM EDT 10/30/2023 5:39 PM EDT Timi Person MD CHEMISTRY ORDERABLE S Performing Organization Address City/[facility] [address]/[facility] Co de Phone Number [facility] [place] [address] * (ABNORMAL) POC, GLUCOSE (10/30/2023 3:10 PM EDT) Glucometer, POC 304(H) 65 - 199 mg/dL 10/30/2023 3:10 PM EDT [facility] Comment:Supplemental ranges: <140 mg/dL before meals <180 mg/dL all other times of the day. Blood CAPILLARY BLOOD / Unknown 10/30/2023 3:10 PM EDT 10/30/2023 3:10 PM EDT Timi Person MD POINT OF CARE TEST ORDERABLES Performing Organization Address [facility] [address]/[facility] Co de Phone Number [facility] [place] [address] * (ABNORMAL) Cooximetry, POC (10/30/2023 2:30 PM EDT) pO2, Coox 30 mmHg 10/30/2023 2:33 PM EDT [facility] Hemoglobin, Coox 11.4(L) 13.7 - 16.5 g/dL 10/30/2023 2:33 PM EDT [facility] Oxyhemoglobin, Coox 51.4 % 10/30/2023 2:33 PM EDT [facility] Carboxyhemoglo bin, Coox 1.2 % 10/30/2023 2:33 PM EDT [facility] Comment: Nonsmokers: 0.5-1.5% COHB ?? Smokers: Variable ??but usually less than 10% ?? Toxic: 20-30% COHB ?? Lethal: Greater than 60% COHB Methemoglobin, Coox 0.3 <=1.5 % 10/30/2023 2:33 PM EDT [facility] Blood (Mixed Venous) 10/30/2023 2:30 PM EDT 10/30/2023 2:33 PM EDT Timi Person MD POINT OF CARE TEST ORDERABLES [facility] [place] [address] * (ABNORMAL) Blood Gas, Arterial POC (10/30/2023 2:27 PM EDT) pH, Arterial 7.31(L) 7.35 - 7.45 10/30/2023 2:28 PM EDT [facility] PCO2, Arterial 38 35 - 45 mmHg 10/30/2023 2:28 PM EDT [facility] PO2, Arterial 78(L) 85 - 104 mmHg 10/30/2023 2:28 PM EDT [facility] Bicarbonate, Arterial 18.7(L) 20.0 - 26.0 mmol/L 10/30/2023 2:28 PM EDT [facility] Base Excess, Arterial -7.5(L) -3.0 - 3.0 mmol/L 10/30/2023 2:28 PM EDT [facility] Hemoglobin, Arterial 11.5(L) 13.7 - 16.5 g/dL 10/30/2023 2:28 PM EDT [facility] Oxyhemoglobin, Arterial 93.6(L) 94.0 - 97.0 % 10/30/2023 2:28 PM EDT [facility] Carboxyhemoglobin , Arterial 0.7 % 10/30/2023 2:28 PM EDT [facility] Comment: Nonsmokers: 0.5-1.5% COHB ?? Smokers: Variable ??but usually less than 10% ?? Toxic: 20-30% COHB ?? Lethal: Greater than 60% COHB Methemoglobin, Arterial 0.3 <=1.5 % 10/30/2023 2:28 PM EDT [facility] Sodium, Arterial 132(L) 135 - 145 mmol/L 10/30/2023 2:28 PM EDT [facility] Potassium, Arterial 5.3(H) 3.5 - 5.0 mmol/L 10/30/2023 2:28 PM EDT [facility] Chloride, Arterial 106 98 - 107 mmol/L 10/30/2023 2:28 PM EDT [facility] Lactate, Arterial 1.8 0.5 - 2.2 mmol/L 10/30/2023 2:28 PM EDT [facility] Fraction of Inspired Oxygen 40 % 10/30/2023 2:28 PM EDT [facility] PF Ratio 195 Ratio 10/30/2023 2:28 PM EDT [facility] Comment:PF ratio calculated using the non-temperature corrected pO2 result. IONIZED CALCIUM, ARTERIAL 1.18 1.15 - 1.33 mmol/L 10/30/2023 2:28 PM EDT [facility] Glucose, Arterial 331(H) 65 - 199 mg/dL 10/30/2023 2:28 PM EDT [facility] Comment:Glucose Concentratio n >=200 mg/dL plus symptoms is consistent with Diabetes Mellitus. Blood ARTERIAL BLOOD / Unknown 10/30/2023 2:27 PM EDT 10/30/2023 2:28 PM EDT Timi Person MD POINT OF CARE TEST ORDERABLES [facility] [place] [address] * (ABNORMAL) Blood Gas, Arterial POC (10/30/2023 1:19 PM EDT) pH, Arterial 7.33(L) 7.35 - 7.45 10/30/2023 1:22 PM [facility] PCO2, Arterial 36 35 - 45 mmHg 10/30/2023 1:22 PM [facility] PO2, Arterial 207(H) 85 - 104 mmHg 10/30/2023 1:22 PM [facility] Bicarbonate, Arterial 18.4(L) 20.0 - 26.0 mmol/L 10/30/2023 1:22 PM [facility] Base Excess, Arterial -7.6(L) -3.0 - 3.0 mmol/L 10/30/2023 1:22 PM [facility] Hemoglobin, Arterial 11.5(L) 13.7 - 16.5 g/dL 10/30/2023 1:22 PM [facility] Oxyhemoglobin, Arterial 97.8(H) 94.0 - 97.0 % 10/30/2023 1:22 PM [facility] Carboxyhemoglobin , Arterial 0.6 % 10/30/2023 1:22 PM [facility] Comment: Nonsmokers: 0.5-1.5% COHB ?? Smokers: Variable ??but usually less than 10% ?? Toxic: 20-30% COHB ?? Lethal: Greater than 60% COHB Methemoglobin, Arterial 0.3 <=1.5 % 10/30/2023 1:22 PM [facility] Sodium, Arterial 134(L) 135 - 145 mmol/L 10/30/2023 1:22 PM [facility] Potassium, Arterial 4.9 3.5 - 5.0 mmol/L 10/30/2023 1:22 PM [facility] Chloride, Arterial 107 98 - 107 mmol/L 10/30/2023 1:22 PM [facility] Lactate, Arterial 1.7 0.5 - 2.2 mmol/L 10/30/2023 1:22 PM [facility] Fraction of Inspired Oxygen 100 % 10/30/2023 1:22 PM [facility] PF Ratio 207 Ratio 10/30/2023 1:22 PM EDT [facility] Comment:PF ratio calculated using the non-temperature corrected pO2 result. IONIZED CALCIUM, ARTERIAL 1.21 1.15 - 1.33 mmol/L 10/30/2023 1:22 PM EDT [facility] Glucose, Arterial 299(H) 65 - 199 mg/dL 10/30/2023 1:22 PM EDT [facility] Comment:Glucose Concentratio n >=200 mg/dL plus symptoms is consistent with Diabetes Mellitus. Blood ARTERIAL BLOOD / Unknown 10/30/2023 1:19 PM EDT 10/30/2023 1:22 PM EDT Timi Person MD POINT OF CARE TEST ORDERABLES [facility] [place] [address] * XR Chest One View (10/30/2023 1:18 PM EDT) [employer] WORKSTATION ID [id number] DH RAD Anatomical Region Laterality Modality Chest [...] who have questions please contact the health healthcare account manager that requested your imaging first. ? Narrative [...] patients who have questions please contactthe health healthcare account manager that requested your imaging first. Timi Person MD IMG DX ORDERABLES * EKG 12 Lead (10/30/2023 1:07 PM EDT) Ventricular rate 75 BPM MUSE SYSTEM Atrial Rate 75 BPM MUSE SYSTEM P-R Interval 184 ms MUSE SYSTEM QRS Duration 114 ms MUSE SYSTEM Q-T Interval 416 ms MUSE SYSTEM QTC Calculated (Bezet) 464 ms MUSE SYSTEM Calculated P [place] 47 degrees MUSE SYSTEM Calculated R [place] 75 degrees MUSE SYSTEM Calculated T [place] -13 degrees MUSE SYSTEM INTERPRETATION Normal sinus [...] Person MD ECG ORDERABLES Performing Organization Address City/[facility] [address]/ZIP Co de Phone Number MUSE SYSTEM * Prepare RBC (10/30/2023 12:48 PM EDT) Status Information Returned [facility] Product Identification RBC [facility] Unit Number [id number] [facility] Product Code C4105Q18 [facility] Unit Blood Type OPOS [facility] Specimen Expiration Date [id number] [facility] [address] [facility] Issue Date / Time [facility] Status [facility] Returned [facility] Product Identification RBC [facility] Unit Number [id number] [facility] Product Code [id number] [facility] Unit Blood Type OPOS [facility] Specimen Expiration Date [facility] [address] [facility] Issue Date / Time [facility] Blood 10/30/2023 6:5 6 AM EDT Timi Person MD BLOOD BANK PRODUCT ORDERABLES Performing Organization Address City/[facility] [address]/[facility] Co de Phone Number [facility] [place] [place] [address] * (ABNORMAL) Blood Gas, Arterial POC (10/30/2023 11:55 AM EDT) pH, Arterial 7.31(L) 7.35 - 7.45 10/30/2023 11:56 AM [facility] PCO2, Arterial 45 35 - 45 mmHg 10/30/2023 11:56 AM [facility] PO2, Arterial 69(L) 85 - 104 mmHg 10/30/2023 11:56 AM [facility] Bicarbonate, Arterial 22.1 20.0 - 26.0 mmol/L 10/30/2023 11:56 AM [facility] Base Excess, Arterial -4.1(L) -3.0 - 3.0 mmol/L 10/30/2023 11:56 AM [facility] Hemoglobin, Arterial 8.6(L) 13.7 - 16.5 g/dL 10/30/2023 11:56 AM [facility] Oxyhemoglobin, Arterial 90.3(L) 94.0 - 97.0 % 10/30/2023 11:56 AM [facility] Carboxyhemoglobin , Arterial 0.1 % 10/30/2023 11:56 AM [facility] Comment: Nonsmokers: 0.5-1.5% COHB ?? Smokers: Variable ??but usually less than 10% ?? Toxic: 20-30% COHB ?? Lethal: Greater than 60% COHB Methemoglobin, Arterial 0.2 <=1.5 % 10/30/2023 11:56 AM [facility] Sodium, Arterial 134(L) 135 - 145 mmol/L 10/30/2023 11:56 AM [facility] Potassium, Arterial 5.2(H) 3.5 - 5.0 mmol/L 10/30/2023 11:56 AM [facility] Chloride, Arterial 108(H) 98 - 107 mmol/L 10/30/2023 11:56 AM EDT [facility] Lactate, Arterial 2.1 0.5 - 2.2 mmol/L 10/30/2023 11:56 AM EDT [facility] IONIZED CALCIUM, ARTERIAL 1.33 1.15 - 1.33 mmol/L 10/30/2023 11:56 AM EDT [facility] Glucose, Arterial 184 65 - 199 mg/dL 10/30/2023 11:56 AM EDT [facility] Comment:Glucose Concentratio n >=200 mg/dL plus symptoms is consistent with Diabetes Mellitus. Blood ARTERIAL BLOOD / Unknown 10/30/2023 11:55 AM EDT 10/30/2023 11:56 AM EDT Timi Person MD POINT OF CARE TEST ORDERABLES [facility] [place] [address] * (ABNORMAL) Blood Gas, Arterial POC (10/30/2023 11:03 AM EDT) pH, Arterial 7.37 7.35 - 7.45 10/30/2023 11:04 AM EDT [facility] PCO2, Arterial 43 35 - 45 mmHg 10/30/2023 11:04 AM EDT [facility] PO2, Arterial 305(H) 85 - 104 mmHg 10/30/2023 11:04 AM EDT [facility] Bicarbonate, Arterial 23.9 20.0 - 26.0 mmol/L 10/30/2023 11:04 AM EDT [facility] Base Excess, Arterial -1.4 -3.0 - 3.0 mmol/L 10/30/2023 11:04 AM EDT [facility] Hemoglobin, Arterial 9.0(L) 13.7 - 16.5 g/dL 10/30/2023 11:04 AM EDT [facility] Oxyhemoglobin, Arterial 98.6(H) 94.0 - 97.0 % 10/30/2023 11:04 AM EDT [facility] Carboxyhemoglobin , Arterial 0.1 % 10/30/2023 11:04 AM EDT [facility] Comment: Nonsmokers: 0.5-1.5% COHB ?? Smokers: Variable ??but usually less than 10% ?? Toxic: 20-30% COHB ?? Lethal: Greater than 60% COHB Methemoglobin, Arterial 0.1 <=1.5 % 10/30/2023 11:04 AM EDT [facility] Sodium, Arterial 135 135 - 145 mmol/L 10/30/2023 11:04 AM EDT [facility] Potassium, Arterial 5.2(H) 3.5 - 5.0 mmol/L 10/30/2023 11:04 AM EDT [facility] Chloride, Arterial 106 98 - 107 mmol/L 10/30/2023 11:04 AM EDT [facility] Lactate, Arterial 1.0 0.5 - 2.2 mmol/L 10/30/2023 11:04 AM EDT [facility] IONIZED CALCIUM, ARTERIAL 1.02(L) 1.15 - 1.33 mmol/L 10/30/2023 11:04 AM EDT [facility] Glucose, Arterial 123 65 - 199 mg/dL 10/30/2023 11:04 AM EDT [facility] Comment:Glucose Concentratio n >=200 mg/dL plus symptoms is consistent with Diabetes Mellitus. Blood ARTERIAL BLOOD / Unknown 10/30/2023 11:03 AM EDT 10/30/2023 11:04 AM EDT Timi Person MD POINT OF CARE TEST ORDERABLES [facility] [place] [address] * (ABNORMAL) Blood Gas, Arterial POC (10/30/2023 10:30 AM EDT) pH, Arterial 7.36 7.35 - 7.45 10/31/2023 6:24 AM [facility] PCO2, Arterial 42 35 - 45 mmHg 10/31/2023 6:24 AM [facility] PO2, Arterial 318(H) 85 - 104 mmHg 10/31/2023 6:24 AM [facility] Bicarbonate, Arterial 23.3 20.0 - 26.0 mmol/L 10/31/2023 6:24 AM [facility] Base Excess, Arterial -2.2 -3.0 - 3.0 mmol/L 10/31/2023 6:24 AM [facility] Hemoglobin, Arterial 8.6(L) 13.7 - 16.5 g/dL 10/31/2023 6:24 AM [facility] Oxyhemoglobin, Arterial 98.4(H) 94.0 - 97.0 % 10/31/2023 6:24 AM [facility] Carboxyhemoglobin , Arterial 0.3 % 10/31/2023 6:24 AM [facility] Comment: Nonsmokers: 0.5-1.5% COHB ?? Smokers: Variable ??but usually less than 10% ?? Toxic: 20-30% COHB ?? Lethal: Greater than 60% COHB Methemoglobin, Arterial 0.0 <=1.5 % 10/31/2023 6:24 AM [facility] Sodium, Arterial 135 135 - 145 mmol/L 10/31/2023 6:24 AM [facility] Potassium, Arterial 4.8 3.5 - 5.0 mmol/L 10/31/2023 6:24 AM [facility] Chloride, Arterial 106 98 - 107 mmol/L 10/31/2023 6:24 AM [facility] Lactate, Arterial 1.1 0.5 - 2.2 mmol/L 10/31/2023 6:24 AM [facility] IONIZED CALCIUM, ARTERIAL 1.02(L) 1.15 - 1.33 mmol/L 10/31/2023 6:24 AM EDT [facility] Glucose, Arterial 120 65 - 199 mg/dL 10/31/2023 6:24 AM EDT [facility] Comment:Glucose Concentratio n >=200 mg/dL plus symptoms is consistent with Diabetes Mellitus. Blood ARTERIAL BLOOD / Unknown 10/30/2023 10:30 AM EDT 10/31/2023 6:23 AM EDT Timi Person MD POINT OF CARE TEST ORDERABLES Performing Organization Address [facility] [address]/[facility] Co de Phone Number [facility] [place] [address] * Platelet count (10/30/2023 10:14 AM EDT) Platelet 193 145 - 357 x10(3)/mcL 10/30/2023 12:45 PM EDT [facility] Blood ARTERIAL BLOOD / Unknown 10/30/2023 10:14 AM EDT Comment:Pre-op diagnosis: ASCVD Timi Preson MD HEMATOLOGY ORDERABL ES Performing Organization Address [facility] [address]/[facility] Co de Phone Number [facility] [place] [address] * (ABNORMAL) Hemoglobin and Hematocrit, blood (10/30/2023 10:14 AM EDT) Hemoglobin 7.7(L) 13.7 - 16.5 g/dL 10/30/2023 12:45 PM EDT [facility] Hematocrit 27.0(L) 40.5 - 48.5 % 10/30/2023 12:45 PM EDT [facility] Comment:This result has been called to Marietta Lincoln by Pat Malloy on 10/30/2023 12:44:50, and has been read back. Blood ARTERIAL BLOOD / Unknown 10/30/2023 10:14 AM EDT 10/30/2023 12:00 PM EDT Comment:Pre-op diagnosis: ASCVD Timi Person MD HEMATOLOGY ORDERABL ES Performing Organization Address [facility] [address]/[facility] Co de Phone Number [facility] [place] [address] * APTT (10/30/2023 10:14 AM EDT) Partial Thromboplastin Time 29 25 - 37 sec 10/30/2023 12:13 PM EDT [facility] Comment: The PTT is NOT appropriate for heparin monitoring. Use the Anti-Xa level for heparin monitoring (HEP UFH) or LMWH monitoring (HEP LMW). A PTT less than 37 seconds generally indicates adequate hemostasis. Blood ARTERIAL BLOOD / Unknown 10/30/2023 10:14 AM EDT 10/30/2023 12:00 PM EDT Comment:Pre-op diagnosis: ASCVD Timi Person MD HEMATOLOGY ORDERABL ES Performing Organization Address [facility] [address]/[facility] de Phone Number [facility] [place] [address] * Prothrombin Time (10/30/2023 10:14 AM EDT) Prothrombin Time 12.4 9.4 - 12.5 sec 10/30/2023 12:13 PM EDT [facility] International Normalization Ratio 1.1 <=4.9 10/30/2023 12:13 PM EDT [facility] Comment: An INR < 2.0 indicates [...] MD HEMATOLOGY ORDERABL ES Performing Organization Address City/[facility] [address]/ZIP Co de Phone Number [facility] [place] [address] * Fibrinogen (10/30/2023 10:14 AM EDT) Pathologist [facility] Fibrinogen 369 200 - 393 mg/dL 10/30/2023 12:13 PM EDT [facility] Comment: A fibrinogen level >100 mg/dL is adequate for hemostasis in most patients without underlying bleeding disorders. Blood ARTERIAL BLOOD / Unknown 10/30/2023 10:14 AM EDT 10/30/2023 12:00 PM EDT Comment:Pre-op diagnosis: ASCVD Timi Person MD HEMATOLOGY ORDERABL ES Performing Organization Address [facility] [address]/[facility] Co de Phone Number [facility] [place] [address] * (ABNORMAL) Blood Gas, Venous POC (10/30/2023 10:09 AM EDT) Pathologist [facility] pH, Venous 7.30(L) 7.32 - 7.42 10/30/2023 10:11 AM EDT [facility] PCO2, Venous 47 38 - 58 mmHg 10/30/2023 10:11 AM EDT [facility] PO2, Venous 60 16 - 65 mmHg 10/30/2023 10:11 AM EDT [facility] Bicarbonate, Venous 22.6 22 - 31 mmol/L 10/30/2023 10:11 AM EDT [facility] Base Excess, Venous -3.8(L) 1.9 - 4.5 mmol/L 10/30/2023 10:11 AM EDT [facility] Hemoglobin, Venous 7.9(L) 13.7 - 16.5 g/dL 10/30/2023 10:11 AM EDT [facility] Oxyhemoglobin, Venous 84.6 % 10/30/2023 10:11 AM EDT [facility] Carboxyhemoglobin , Venous 1.0 % 10/30/2023 10:11 AM EDT [facility] Comment: Nonsmokers: 0.5-1.5% COHB ?? Smokers: Variable ??but usually less than 10% ?? Toxic: 20-30% COHB ?? Lethal: Greater than 60% COHB Methemoglobin, Venous 0.2 <=1.5 % 10/30/2023 10:11 AM EDT [facility] Sodium, Venous 131(L) 135 - 145 mmol/L 10/30/2023 10:11 AM EDT [facility] Potassium, Venous 5.4(H) 3.5 - 5.0 mmol/L 10/30/2023 10:11 AM EDT [facility] Chloride, Venous 104 98 - 107 mmol/L 10/30/2023 10:[facility] Glucose, Venous 124 65 - 199 mg/dL 10/30/2023 10:11 AM [facility] Comment:Glucose Concentratio n >=200 mg/dL plus symptoms is consistent with Diabetes Mellitus. Lactate, Venous 1.2 0.5 - 2.2 mmol/L 10/30/2023 10:11 AM [facility] Ionized Calcium, Venous 0.98(L) 1.15 - 1.33 mmol/L 10/30/2023 10:11 AM T [facility] Blood VENOUS BLOOD SPECIMEN / Unknown 10/30/2023 10:09 AM EDT 10/30/2023 10:11 AM EDT Timi Person MD POINT OF CARE TEST ORDERABLES [facility] [place] [address] * (ABNORMAL) Blood Gas, Arterial POC (10/30/2023 10:07 AM EDT) pH, Arterial 7.31(L) 7.35 - 7.45 10/30/2023 10:08 AM EDT [facility] PCO2, Arterial 43 35 - 45 mmHg 10/30/2023 10:08 AM [facility] PO2, Arterial 305(H) 85 - 104 mmHg 10/30/2023 10:08 AM [facility] Bicarbonate, Arterial 21.1 20.0 - 26.0 mmol/L 10/30/2023 10:08 AM [facility] Base Excess, Arterial -5.1(L) -3.0 - 3.0 mmol/L 10/30/2023 10:08 AM [facility] Hemoglobin, Arterial 7.9(L) 13.7 - 16.5 g/dL 10/30/2023 10:08 AM [facility] Oxyhemoglobin, Arterial 97.7(H) 94.0 - 97.0 % 10/30/2023 10:08 AM [facility] Carboxyhemoglobin , Arterial 0.6 % 10/30/2023 10:08 AM [facility] Comment: Nonsmokers: 0.5-1.5% COHB ?? Smokers: Variable ??but usually less than 10% ?? Toxic: 20-30% COHB ?? Lethal: Greater than 60% COHB Methemoglobin, Arterial 0.3 <=1.5 % 10/30/2023 10:08 AM [facility] Sodium, Arterial 132(L) 135 - 145 mmol/L 10/30/2023 10:08 AM [facility] Potassium, Arterial 5.2(H) 3.5 - 5.0 mmol/L 10/30/2023 10:08 AM [facility] Chloride, Arterial 105 98 - 107 mmol/L 10/30/2023 10:08 AM [facility] Lactate, Arterial 1.2 0.5 - 2.2 mmol/L 10/30/2023 10:08 AM [facility] IONIZED CALCIUM, ARTERIAL 0.99(L) 1.15 - 1.33 mmol/L 10/30/2023 10:08 AM [facility] Glucose, Arterial 124 65 - 199 mg/dL 10/30/2023 10:08 AM EDT [facility] Comment:Glucose Concentratio n >=200 mg/dL plus symptoms is consistent with Diabetes Mellitus. Blood ARTERIAL BLOOD / Unknown 10/30/2023 10:07 AM EDT 10/30/2023 10:08 AM EDT Timi Person MD POINT OF CARE TEST ORDERABLES [facility] [place] [address] * (ABNORMAL) Blood Gas, Arterial POC (10/30/2023 8:44 AM EDT) pH, Arterial 7.34(L) 7.35 - 7.45 10/30/2023 8:45 AM EDT [facility] PCO2, Arterial 37 35 - 45 mmHg 10/30/2023 8:45 AM EDT [facility] PO2, Arterial 183(H) 85 - 104 mmHg 10/30/2023 8:45 AM EDT [facility] Bicarbonate, Arterial 19.8(L) 20.0 - 26.0 mmol/L 10/30/2023 8:45 AM EDT [facility] Base Excess, Arterial -5.9(L) -3.0 - 3.0 mmol/L 10/30/2023 8:45 AM EDT [facility] Hemoglobin, Arterial 11.5(L) 13.7 - 16.5 g/dL 10/30/2023 8:45 AM EDT [facility] Oxyhemoglobin, Arterial 98.2(H) 94.0 - 97.0 % 10/30/2023 8:45 AM EDT [facility] Carboxyhemoglobin , Arterial 0.3 % 10/30/2023 8:45 AM EDT [facility] Comment: Nonsmokers: 0.5-1.5% COHB ?? Smokers: Variable ??but usually less than 10% ?? Toxic: 20-30% COHB ?? Lethal: Greater than 60% COHB Methemoglobin, Arterial 0.0 <=1.5 % 10/30/2023 8:45 AM EDT [facility] Sodium, Arterial 140 135 - 145 mmol/L 10/30/2023 8:45 AM EDT [facility] Potassium, Arterial 4.3 3.5 - 5.0 mmol/L 10/30/2023 8:45 AM EDT [facility] Chloride, Arterial 107 98 - 107 mmol/L 10/30/2023 8:45 AM EDT [facility] Lactate, Arterial 1.6 0.5 - 2.2 mmol/L 10/30/2023 8:45 AM EDT [facility] IONIZED CALCIUM, ARTERIAL 1.15 1.15 - 1.33 mmol/L 10/30/2023 8:45 AM EDT [facility] Glucose, Arterial 118 65 - 199 mg/dL 10/30/2023 8:45 AM EDT [facility] Comment:Glucose Concentratio n >=200 mg/dL plus symptoms is consistent with Diabetes Mellitus. Blood ARTERIAL BLOOD / Unknown 10/30/2023 8:44 AM EDT 10/30/2023 8:45 AM EDT Timi Person MD POINT OF CARE TEST ORDERABLES Performing Organization Address City/[facility] [address]/ZIP Co de Phone Number [facility] [place] [address] * Platelet count (10/30/2023 8:24 AM EDT) Platelet 187 145 - 357 x10(3)/mcL 10/30/2023 11:16 AM EDT [facility] Blood ARTERIAL BLOOD / Unknown 10/30/2023 8:24 AM EDT Comment:Pre-op diagnosis: ASCVD Timi Person MD HEMATOLOGY ORDERABL ES Performing Organization Address City/[facility] [address]/ZIP Co de Phone Number [facility] [place] [address] * (ABNORMAL) Hemoglobin and Hematocrit, blood (10/30/2023 8:24 AM EDT) Hemoglobin 8.3(L) 13.7 - 16.5 g/dL 10/30/2023 11:16 AM EDT [facility] Hematocrit 28.2(L) 40.5 - 48.5 % 10/30/2023 11:16 AM EDT [facility] Comment:This result has been called to [facility] Lincoln by Evan Dhaliwal on 10/30/2023 11:15:57, and has been read back. Blood ARTERIAL BLOOD / Unknown 10/30/2023 8:24 AM EDT 10/30/2023 11:07 AM EDT Comment:Pre-op diagnosis: ASCVD Timi Person MD HEMATOLOGY ORDERABL ES Performing Organization Address [place] [facility] [address]/ZIP Co de Phone Number [facility] [place] [address] * (ABNORMAL) Fibrinogen (10/30/2023 8:24 AM EDT) Fibrinogen 418(H) 200 - 393 mg/dL 10/30/2023 11:36 AM EDT [facility] Comment: A fibrinogen level >100 mg/dL is adequate for hemostasis in most patients without underlying bleeding disorders. Blood ARTERIAL BLOOD / Unknown 10/30/2023 8:24 AM EDT 10/30/2023 11:07 AM EDT Comment:Pre-op diagnosis: ASCVD Timi Person MD HEMATOLOGY ORDERABL ES [facility] [place] [address] * (ABNORMAL) Comprehensive metabolic panel (non-fasting) (10/30/2023 6:57 AM EDT) Glucose 70 65 - 99 mg/dL 10/30/2023 7:31 AM EDT [facility] Comment: Fasting Glucose Interpretive Criteria: [...] 10 - 20 mg/dL 10/30/2023 7:31 AM [facility] Creatinine 2.94(H) 0.80 - 1.50 mg/dL 10/30/2023 7:31 AM [facility] Sodium 142 135 - 145 mMol/L 10/30/2023 7:31 AM [facility] Potassium 4.4 3.5 - 5.0 mMol/L 10/30/2023 7:31 AM [facility] Chloride 107 98 - 107 mMol/L 10/30/2023 7:31 AM [facility] Carbon Dioxide 24 22 - 31 mMol/L 10/30/2023 7:31 AM [facility] Anion Gap 11 5 - 15 mMol/L 10/30/2023 7:31 AM [facility] Calcium 8.6 8.5 - 10.5 mg/dL 10/30/2023 7:31 AM [facility] Protein, Total 6.2 6.1 - 8.0 g/dL 10/30/2023 7:31 AM [facility] Albumin 3.2 3.2 - 5.2 g/dL 10/30/2023 7:31 AM [facility] Aspartate Aminotransferase 16 <=39 unit/L 10/30/2023 7:31 AM [facility] Alanine Aminotransferase 13 0 - 55 unit/L 10/30/2023 7:31 AM [facility] Alkaline Phosphatase 77 40 - 130 unit/L 10/30/2023 7:31 AM [facility] Bilirubin, Total 0.3 <=1.3 mg/dL 10/30/2023 7:31 AM EDT [facility] Est Glomerular Filtration Rate - Male 26 mL/min/1. 73 m?? 10/30/2023 7:31 AM EDT [facility] Comment: This patient's estimated [...] Fasting Status Yes 10/30/2023 7:31 AM EDT [facility] Blood VENOUS BLOOD SPECIMEN / Unknown Venipuncture / Unknown 10/30/2023 6:57 AM EDT 10/30/2023 7:01 AM EDT Price Ramirez MD CHEMISTRY ORDERABLES [facility] [place] [address] * ABORH RECHECK (10/30/2023 6:50 AM EDT) ABORH Recheck O POSITIVE 10/30/2023 7:27 AM EDT [facility] Blood VENOUS BLOOD SPECIMEN / Unknown Venipuncture / Unknown 10/30/2023 6:50 AM EDT 10/30/2023 6:50 AM EDT Timi Person MD BLOOD BANK LAB [facility] [place] [place] [address] * POC, GLUCOSE (10/30/2023 6:38 AM EDT) Glucometer, POC 70 65 - 199 mg/dL 10/30/2023 6:40 AM EDT [facility] Comment:Supplemental ranges: <140 mg/dL before meals <180 mg/dL all other times of the day. Blood CAPILLARY BLOOD / Unknown 10/30/2023 6:38 AM EDT 10/30/2023 6:40 AM EDT Timi Person MD POINT OF CARE TEST ORDERABLES Performing Organization Address City/State/[facility] Co de Phone Number [facility] [address] * Transesophageal Echo/OR (10/30/2023 6:04 AM EDT) Anatomical Region Laterality Modality Cardiac Other 10/30/2023 6:04 AM EDT Narrative 10/31/2023 1:50 PM EDT Version: 1 Study ID: [id number] [address] [place] [address] ? OR Transesophageal Echo Report Name: HAYDEN RUSSO ? Study Date: 10/30/2023, 6: 04 AM : 1975 Age: 47 Years Gender: Male Ordering Physician: TIMI PERSON Referring Physician: LUIS GASTON ? Conclusions MORA pre and post CABG [...] MD - 10/31/2023 Version: 1 Study ID: [id number] [address] [place] [address] ORTransesophageal Echo Report Name: HAYDEN RUSSO Study [...] ORDERABLES documented in this encounter Visit Diagnoses Not on filedocumented in this encounter Admitting Diagnoses Diagnosis S/P CABG x 3 Postsurgical aortocoronary bypass status documented in this encounter Administered Medications Inactive Administered Medications - up to 3 most recent administrations Medication Order MAR Action Action Date Dose Rate Site acetaminophen (Tylenol) tablet 975 mg 975 mg, [...] albumin (human) 5% 250 mL intravenous solution CONTINUOUS PRN, Starting on Mon10/30/23 at 1032, Until Mon10/30/23 at 1242, Intra-Operative (Intra-Procedure), Routine New Bag 10/30/2023 10:32 AM EDT 12.5 g AMIOdarone (Pacerone) tablet 200 mg 200 mg, Oral, DAILY, First dose (after last modification) on 11/18/23 at 2000, Until Discontinued, Routine apixaban (Eliquis) tablet 2.5 mg 2.5 mg, Oral, 2 TIMES DAILY, First dose on 11/14/23 at 2100, Until Discontinued, Anticoagulant, Routine, apixaban [...] Given 11/15/2023 5:28 PM EDT 40 mg bisacodyL (Dulcolax) suppository 10 mg 10 mg, Rectal, DAILY PRN, Starting on Polina 11/02/23 at 0000, Until 11/18/23 at 1631, Constipation, Starting post-op day 3., Routine Given 11/03/2023 8:30 AM EDT 10 mg calcium chloride 10% (100 mg/mL) injection PRN, Starting on Mon10/30/23 at 0821, Until Mon10/30/23 at 1242, Intra-Operative (Intra-Procedure), Routine Given 10/30/2023 8:21 AM EDT 1 g cardioplegic solution (Del Nido Formula) 31 meq/1052.8 mL (potassium) solution PRN, Starting on Mon10/30/23 at 0822, Until Mon10/30/23 at 1242, Intra-Operative (Intra-Procedure) Given 10/30/2023 8:22 AM EDT 1,000 mLs carvediloL (Coreg) tablet 25 mg 25 mg, Oral, 2 TIMES DAILY WITH MEALS, First dose (after last modification) on Mon11/17/23 at 1700, Until Discontinued, Routine Given 11/18/2023 8:40 AM EDT 25 mg Given 11/17/2023 5:10 PM EDT 25 mg citalopram (CeleXA) tablet 10 mg 10 mg, [...] Given 11/16/2023 10:00 AM EDT 75 mg dextrose 10% infusion 250 mL, at 1,000 [...] insulin orders before administering the next dose. epoetin sha-epbx (Retacrit) injection 10,000 Units 10,000 [...] Given 11/18/2023 8:55 AM EDT 50,000 Units ferrous sulfate EC (FeroSul) tablet 325 mg 325 mg, Oral, DAILY WITH BREAKFAST, First dose on Mon11/14/23 at 0900, Until Discontinued, DO NOT CRUSH OR OPEN. Take with food or water., Routine Given 11/18/2023 8:40 AM EDT 325 mg Given 11/17/2023 8:10 AM EDT 325 mg Given 11/16/2023 10:01 AM EDT 325 mg glucagon (Glucagen) (1 mg/mL) injection solution [...] grams.), Routine heparin (porcine) (1,000 units/mL) injection PRN, Starting on Mon10/30/23 at 0822, Until Mon10/30/23 at 1242, Intra-Operative (Intra-Procedure), Routine Given 10/30/2023 11:09 AM EDT 5,000 Units Given 10/30/2023 10:39 AM EDT 5,000 Units Given 10/30/2023 10:21 AM EDT 5,000 Units hydrALAZINE (Apresoline) (20 mg/mL) injection 10 mg 10 mg, Intravenous, EVERY 4 HOURS PRN, Starting on 11/04/23 at 2019, Until 11/18/23 at 1631, High Blood Pressure, give for SBP >150 Given 11/17/2023 4:15 AM EDT 10 mg Given 11/16/2023 4:36 AM EDT 10 mg Given 11/15/2023 4:21 PM EDT 10 mg HYDROmorphone (Dilaudid) tablet 2 mg 2 [...] HOURS, First dose (after last modification) on Polina 11/16/23 at 1800, Until Discontinued, Routine Given 11/17/2023 5:10 PM EDT 48 Units Given 11/16/2023 5:30 PM EDT 48 Units insulin lispro (HumaLOG;Admelog) (100 unit/mL) subcutaneous [...] Given 11/17/2023 4:08 AM EDT 1 Units ipratropium-albuteroL (Duoneb) 0.5 mg-3 mg(2.5 mg [...] Given 11/16/2023 10:03 AM EDT 100 mg mannitoL (Osmitrol) 20 % infusion CONTINUOUS PRN, Starting on Mon10/30/23 at 0822, Until Mon10/30/23 at 1242, Intra-Operative (Intra-Procedure) New Bag 10/30/2023 8:22 AM EDT 25 g ondansetron (pf) (Zofran) (2 mg/mL) injection 4 mg 4 mg, Intravenous, EVERY 8 HOURS PRN, Starting on 10/30/23 at 1302, Until 11/18/23 at 1631, Nausea [...] Given 11/16/2023 10:00 AM EDT 40 mg senna-docusate (Pericolace) 8.6-50 mg per tablet [...] bicarbonate 8.4 % (1 meq/ml) IV solution PRN, Starting on Mon10/30/23 at 1021, Until Mon10/30/23 at 1242, Intra-Operative (Intra-Procedure), Routine Given 10/30/2023 10:21 AM EDT 50 mEq sodium chloride 0.9 % (flush) (BD PosiFlush Normal Saline 0.9) flush 5 mL 5 mL, Intravenous, EVERY 8 HOURS, First dose on Mon11/15/23 at 1000, Until Discontinued, Routine Given 11/18/2023 9:43 AM EDT 5 mLs Given 11/18/2023 2:00 AM EDT 5 mLs Given 11/17/2023 5:11 PM EDT 5 mLs sodium chloride 0.9% infusion 10-30 mL/hr, Intravenous, DAILY PRN, Starting on 10/30/23 at 1302, Until 11/18/23 at 1631, Side port TKO rate, per [facility] nrusing protocol. Rate/Dose Verify 11/13/2023 10:00 AM [...] Given 11/16/2023 8:23 PM EDT 50 mg vancomycin (Vancocin) injection PRN, Starting on Mon10/30/23 at 1009, Until Mon10/30/23 at 1242, Intra-Operative (Intra-Procedure), Routine Given 10/30/2023 10:09 AM EDT 1 g 19- Surgical Site verapamiL (Isoptin) (2.5 mg/mL) injection PRN, Starting on Mon10/30/23 at 1009, Until Mon10/30/23 at 1242, Administer over 2 Minutes, Intra-Operative (Intra-Procedure) Given 10/30/2023 10:09 AM EDT 5 mg 19- Surgical Site vitamin B Complex-vitamin C-folic Acid (Cristal-jose) 0.8 mg per tablet 1 tablet 1 tablet, Oral, DAILY, First dose on 11/04/23 at 1430, Until Discontinued, Routine Given 11/18/2023 8:39 AM EDT 1 tablet Given 11/17/2023 8:10 AM EDT 1 tablet Given 11/16/2023 10:00 AM EDT 1 tablet documented in this encounter Active and Recently Administered Medications Times are shown in EDT. Scheduled Medication Order 11/16/2023 11/17/2023 11/18/2023 acetaminophen (Tylenol) (32.02 mg/mL) oral liquid 1,000 mg (CANCELED) 1,000 mg, Oral, EVERY 6 HOURS SCHEDULED, First dose (after last modification) on 11/04/23 at 1200, Until Discontinued, - Maximum [...] Routine 1002 (Given - Provider: Radha Caal RN)202 (Given - Provider: Hector Hair RN) 0809 (Given - Provider: Zeb Cali RN - Comment: DELL Hebert reached out to charge phone saying that MD asked her to give this, but that she forgot to go back in and change it from held to given)2043 (Given - Provider: Hector Hair RN) 0840 (Given - Provider: Mary Garcia, DELL) AMIOdarone (Pacerone) tablet 200 mg 200 mg, Oral, DAILY, First dose (after last modification) on Mon11/18/23 at 2000, Until Discontinued, Routine apixaban (Eliquis) tablet 2.5 mg 2.5 mg, Oral, 2 TIMES DAILY, First dose on Tu11/14/23 at 2100, Until Discontinued, Anticoagulant, Routine, apixaban (Eliquis) Indication: DVT or PE, Chronic/Long-term (Secondary Prevention) 1003 (Given - Provider: Radha Caal, DELL)2022 (Given - Provider: Hector Hair, DELL) 0810 (Given - Provider: Becca Hebert, DELL)2044 (Given - Provider: Hector Hair RN) 0840 (Given - Provider: Mary Garcia, DELL) aspirin chewable tablet 81 mg (CANCELED) 81 mg, Per NG tube, DAILY, First dose on Mon11/04/23 at 0900, Until Discontinued, Give NE if unable to PO, Routine 0959 (Given - Provider: Radha Caal RN) aspirin chewable tablet 81 mg(Linked Group 1) 81 mg, Oral, DAILY, First dose (after last modification) on Mon11/17/23 at 0900, Until Discontinued, Routine 0810 (Given - Provider: Becca Hebert, DELL) 0840 (Given - Provider: Mary Garcia, DELL) atorvastatin (Lipitor) tablet 40 mg 40 mg, Oral, EVERY EVENING, First dose (after last modification) on Mon11/08/23 at 1700, Until Discontinued, Routine 1715 (Given - Provider: Radha Caal RN) 1710 (Given - Provider: Becca Hebert, DELL) carvediloL (Coreg) tablet 18.75 mg (CANCELED) 18.75 mg, Oral, 2 TIMES DAILY WITH MEALS, First dose (after last modification) on Polina 11/16/23 at 0845, Until Discontinued, Routine 1001 (Given - Provider: Radha Caal, DELL)1714 (Given - Provider: Radha Caal RN) 0810 (Given - Provider: Becca Hebert RN) carvediloL (Coreg) tablet 25 mg 25 mg, Oral, 2 TIMES DAILY WITH MEALS, First dose (after last modification) on Mon11/17/23 at 1700, Until Discontinued, Routine 1710 (Given - Provider: Becca Hebert RN) 0840 (Given - Provider: Mary Garcia, RN) carvediloL (Coreg) tablet 6.25 mg (COMPLETED) 6.25 [...] 0840 (Given - Provider: Mary Garcia RN) epoetin sha-epbx (Retacrit) injection 10,000 Units 10,000 Units, Subcutaneous, THREE TIMES WEEKLY (Mon, , Mon) (Once per day on Monday), First dose on Mon11/04/23 at 1145, Until Discontinued, Routine, What is the indication of use? Chronic Kidney Disease (CKD) 0915 (Given - Provider: Becca Hebert, DELL) ergocalciferoL (vitamin D2) (8,000 units/mL) oral liquid 50,000 Units 50,000 Units, Oral, WEEKLY, First dose (after last modification) on Mon11/18/23 at 0900, Until Discontinued, Routine 0855 (Given - Provider: Mary Garcia, DELL) ferrous sulfate EC (FeroSul) tablet 325 mg 325 mg, Oral, DAILY WITH BREAKFAST, First dose on Mon11/14/23 at 0900, Until Discontinued, DO NOT CRUSH OR OPEN. Take with food or water., Routine 1001 (Given - Provider: Radha Caal, DELL) 0810 (Given - Provider: Becca Hebert, DELL) 0840 (Given - Provider: aMry Garcia, RN) insulin glargine-ygfn (Semglee) (100 unit/mL) subcutaneous injection vial 48 Units 48 Units, Subcutaneous, EVERY 24 HOURS, First dose (after last modification) on Mon11/16/23 at 1800, Until Discontinued, Routine 1730 (Given - Provider: Radha Caal, RN) 1710 (Given - Provider: Becca Hebert, [...] Radha Caal RN)1727 (Given - Provider: Radha Caal, DELL) 0800 (Not Given - Provider: Becca Hebert, RN - Reason: Contraindicated)1225 (Given - Provider: Becca Hebert, DELL)1710 (Given - Provider: Becca Hebert, DELL) 0841 (Given - Provider: Mary Garcia, RN)1200 (Due) insulin lispro (HumaLOG;Admelog) (100 unit/mL) [...] - Comment: [phone] (Given - Provider: Hector Hair RN)0808 (Given - Provider: Radha Caal, DELL)1129 (Given - Provider: Radha Caal RN)1725 (Given - Provider: Radha Caal RN)2004 (Given - Provider: Hector Hair RN) 0005 (Given - Provider: Hector Hair RN)0408 (Given - Provider: Hector Hair RN)0815 (Given - Provider: Becca Hebert RN)1226 (Given - Provider: Becca Hebert RN)1600 (Not [...] DELL)1710 (Given - Provider: Becca Hebert, DELL) 0600 (Given - Provider: Hector Hair RN)1200 [...] RN) 0810 (Given - Provider: Becca Hebert, DELL)1225 (Given - Provider: Becca Hebert, DELL)1710 (Given - Provider: Becca Hebert, DELL) 0840 (Given - Provider: Mary Garcia RN)1200 [...] - Reason: Contraindicated)1711 (Given - Provider: Becca Hebert, RN) 0200 (Given - Provider: Hector Hair, DELL)0943 (Given - Provider: Mary Garcia, DELL) torsemide (Demadex) tablet 20 mg 20 mg, Oral, DAILY, First dose on 11/18/23 at 0915, Until Discontinued, Routine 942 (Given - Provider: Mary Garcia, RN) traZODone (Desyrel) tablet 50 mg 50 mg, Oral, NIGHTLY, First dose on Polina 11/16/23 at 2100, Until Discontinued, Routine 2022 (Given - Provider: Hector Hair RN) 2044 (Given - Provider: Hector Hair RN) vitamin [...] SBP >150 0436 (Given - Provider: Hector Hair RN) 0415 (Given - Provider: Hector Hair RN) [...] PRN, Starting on 10/30/23 at 1302, Until 11/17/24 at 1631, Pain, Breakthrough pain rescue dose, [...] PRN, Starting on Mon10/30/23 at 1302, Until Mon11/18/23 at 1631, Pain, severe pain (7-10), If multiple routes of administration ordered, oral route first line., Routine ondansetron (pf) (Zofran) (2 mg/mL) injection 4 mg 4 mg, Intravenous, EVERY 8 HOURS PRN, Starting on Mon10/30/23 at 1302, Until Mon11/18/23 at 1631, Nausea sodium chloride 0.9% infusion 10-30 mL/hr, Intravenous, DAILY PRN, Starting on Mon10/30/23 at 1302, Until Mon11/18/23 at 1631, Side port TKO rate, per CC nrusing protocol. Linked Groups Order Group 1: [...] documented as of this encounter Care Teams Professional Programmer Analyst Relationship 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
--- OUTSIDE RECORDS SUMMARY | 2024-01-04 13:16 | XMS_ITS | Encounter Summary ---
Author Organization [facility] Address [facility] [address]anna [place] [address] Care Team Providers Care Laborer Cement Gun Placing Name Role Phone Bandar Hahn MD Primary Care Provider [phone] Encounter Details Date Type Department Care Team (Latest Contact Info) Description 09/22/2023 3:46 PM EDT - 09/22/2023 11:59 PM EDT Hospital Encounter XRay at [address] [address] Timi Dutta MD [facility] [place] [address] Coronary artery disease involving [place] coronary artery of [place] heart without angina pectoris Discharge Disposition: Home Social History Tobacco Use Types Packs/Day Years Used Date Smoking Tobacco: Former Cigarettes 1 10 Smokeless Tobacco: Never Alcohol Use Standard Drinks/Week Comments Not Currently 0 (1 standard drink = 0.6 oz pur e alcohol) [facility] Utilities Answer Date Recorded In the past 12 months has [employer], gas, oil, or water company threatened [...] on file documented as of this encounter Medications at Time of Discharge [...] by mouth daily. 90 tablet 11/19/2023 11/27/2023 chlorhexidine (HIBICLENS) 4 % Liquid Apply topically daily as needed. Shower from head to toe with Chlorhexidine the night before surgery . 09/22/2023 mupirocin (Bactroban) 2 % Ointment Apply 1 each topically 2 times daily. Apply a small amount to each nostril twice daily. Begin 5 days prior to the day of surgery. 22 g 09/22/2023 11/18/2023 losartan (Cozaar) 25 mg tablet Take 1 tablet by mouth daily. 90 tablet 3 09/12/2023 11/18/2023 prasugreL (Effient) 10 mg tablet Take 1 tablet by mouth daily. 90 tablet 3 08/05/2023 11/18/2023 carvediloL (Coreg) 6.25 mg tablet Take 1 tablet by mouth 2 times daily. 60 tablet 3 06/07/2023 09/27/2023 BASAGLAR KWIKPEN U-100 INSULIN 100 unit/mL (3 mL) pen INJECT 50 UNITS SUBCUTANEOUSLY EVERY DAY AT BEDTIME 1 10/15/2018 11/18/2023 HUMALOG KWIKPEN 100 unit/mL Insulin Pen INJECT 20 UNITS SUBCUTANEOUSLY UP TO THREE TIMES DAILY BEFORE MEALS 3 11/12/2018 11/18/2023 atorvastatin (LIPITOR) 80 mg Tablet Take 1 tablet by mouth every evening. 90 tablet 3 10/14/2018 11/18/2023 aspirin 81 mg Tablet, Chewable Take 81 mg by mouth daily. 30 tablet 3 10/15/2018 12/21/2023 nitroGLYcerin (NITROSTAT) 0.4 mg Tablet, Sublingual Place 1 tablet under the tongue every 5 minutes as needed for Chest pain. 90 tablet 12 10/14/2018 11/18/2023 documented as of this encounter Plan of Treatment Upcoming Encounters Date Type Department Care Team (Late st Contact Info) Description 01/31/2024 9:30 AM EST Office Visit Ne[place] [address] Donavon Frey MD [facility] [place] [address] 02/06/2024 1:00 PM EST Office Visit Cardiology at [address] [phone] Adrian Tello MD [facility] [place] [address] 04/25/2024 10:30 AM EST Office Visit Sleep Center at [place] [address] [place] [id number] Maria De Jesus Lange APRN [facility] [address] documented as of this encounter Procedures Procedure Name Priority Date/Time Associated Diagnosis Comments XR CHEST PA AND LATERAL Routine 09/22/2023 4:03 PM EDT Coronary artery disease involving [place] coronary artery of [place] heart without angina pectoris documented in this encounter Results * XR Chest PA & Lateral (Generic) (09/22/2023 4:03 PM EDT) WORKSTATION ID [id number] RAD Anatomical Region Laterality Modality Chest N/A [...] who have questions please contact the health critical care specialist that requested your imaging first. ? Electronically signed by: Minesh Way MD, [facility] ??([phone]), at 09/22/2023 5:05 PM Narrative 09/22/2023 5:05 PM EDT EXAMINATION: XR [...] patients who have questions please contactthe health critical care specialist that requested your imaging first. Timi Dutta MD IMG DX ORDERABLES documented in this encounter Visit Diagnoses Diagnosis Coronary artery disease involving [place] coronary artery of [place] heart without angina pectoris documented in this encounter Care Teams Laborer Cement Gun Placing Relationship 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
--- OUTSIDE RECORDS SUMMARY | 2024-01-04 13:16 | XMS_ITS | Encounter Summary ---
[place] [address] Care Team Providers Care Toy Consultant Name Role Phone Bandar Hahn MD Primary Care Provider [phone] Reason for Visit * Auth/Cert (Routine) Specialty Diagnoses / Procedures Referred By Martha vasquez Referred To Contact Diagnoses ASCVD (arteriosclerotic cardiovascular disease) ASCVD Procedures PRO ENDOSCOPY W/VIDEO-ASST VEIN HARVEST, CABG PRO CABG, ARTERIAL, SINGLE PRO CABG, ARTERY-VEIN, TWO ENDOSCOPIC HARVEST VEIN(S) FOR CABG (WRVU 0.31) @CABG, USING ARTERIAL GRAFT;SINGLE ARTERIAL GRAFT (WRVU 33.75) @CABG, TWO VENOUS GRAFTS & ARTERIAL GRAFT (WRVU 7.93) Timi Dutta MD [facility] DR [place] [address] [facility] Referral ID Status Reason Start Date Expiration Date Visits Re quested Visits Authorized [id number] 1 1 Encounter Details Date Type Department Care Team (Late st Contact Info) Description 10/30/2023 7:32 AM EDT Anesthesia Event [place] [id number] Janie Smith MD [facility] ANESTHESIOLOGY DEPT [place], [place] [id number] Augie Lock CRNA [facility] [place] [address] Anesthesia Record Procedure Summary Procedure Name Responsible Anesthesiologist Anesthesia Start Time Anesthesia Stop Time ENDOSCOPIC HARVEST VEIN(S) FOR CABG (WRVU 0.31) (Leg) Janie Smith MD 10/30/23 0732 10/30/23 1255 Events Date Time Event Comment 10/30/2023 0727 0732 Start 0737 AN Verify 0737 An Start Data 0801 An Induction 0804 An Intubation 0807 MORA w/ REPORT 0830 Anesthesia Ready 0847 Skin Incision 0853 Sternotomy 0958 CV Bypass init 1000 An Clamp start 1059 Rewarming 1116 An Clamp Remove 1136 CP Bypass Ended 1203 Chest Closed 1240 an stop data 1255 Recovery or ICU Handoff Jasmine ent care was transferred to the destination unit staff after review of the patient's medical history, current anesthetic/surgical status and plan, according to the Provider Handoff Checklist. 1255 Stop Meds Name Total midazolam 4 mg fentaNYL 1,250 mcg propofoL 120 mg propofol INF 357.75 mg EPINEPHrine INF 242 mcg NORepinephrine INF 1,038 mcg rocuronium 200 mg heparin 35,000 Units protamine 260 mg tranexamic acid (TXA) 1,290 mg tranexamic acid (TXA) INF 569.31 mg insulin regular INF 1.94 Units cefTRIAXone 2 g calcium chloride 1,000 mg dexmedeTOMIDine 4 mcg/mL INF 9.45 mcg milrinone 5 mg milrinone INF 2.22 mg sodium chloride 0.9% 500 mL lactated ringers 500 mL * Agents Name O2 Air N2O Isoflurane (et) * Blood No blood administrations on file. Lines, Drains, and Airways Type Details Placement Removal Chest Tube 10/30/23; Left; pleu ral; 10/31/23; 1132 10/30/23 0000 by Ana Lincoln RN 10/31/23 1132 by Vilma Cameron RN Chest Tube 10/30/23; Left; mediastinum; 28FR straight; 10/31/23; 1132 10/30/23 0000 by Ana Lincoln RN 10/31/23 1132 by Vilma Cameron RN Chest Tube 10/30/23; Right; mediastinum; 28fr angled; 10/31/23; 1132 10/30/23 0000 by Ana Lincoln RN 10/31/23 1132 by Vilma Cameron RN Drain/Device Site 10/30/23; Right; med ial; knee; collapsible closed device; 10/30/23; 1804 10/30/23 0000 by Ana Lincoln RN 10/30/23 1804 by Ezequiel Young RN PIV 10/30/23; 0658; 18 g auge; brachial vein, left; Anatomical Landmarks; DELL Aguilar; distraction, tolerated well, appears comfortable; 11/09/23; 0006 10/30/23 0658 by Jose Raphael RN 11/09/23 0006 by Price Cm RN Urethral Catheter 10/30/23; 0750; Surg leana longer than 2 hours; indwelling catheter with core temperature probe; latex, hydrophilic coated; 14; inserted at [facility]; 1; 5; 10; none; drainage bag; urethral catheter removed; 11/06/23; 1250 10/30/23 0750 by Ana Lincoln RN 11/06/23 1250 by Nica Llanos Arterial Line 10/30/23; 0757; radi al artery, left; 20 gauge; Ultrasound Guidance; Yes - US guidance used but Image NOT saved; continuous blood pressure monitoring, frequent blood gas measurement; Sterile Gloves, Sterile Prep; 1; radial artery, right; 11/13/23; 0800 10/30/23 0757 by Janie Smith MD 11/13/23 0800 by Jeniffer Burnham RN ETT Mask Ventilation: Ad junct (2); ETT Type: Oral, Cuffed; ETT Size: 8 mm; Indirect: Video; Notes: Asleep, Pre-O2, Stylette; Attempts: 1; Laryngoscopy Grade: 2; ETT Placement Verified By: Auscultation, Capnometry, Visual; Secured at Teeth: 25 cm; Inserted by: Hayde; Removal Date: 11/10/23; Removal Time: 0843 10/30/23 0804 by Augie Lock CRNA 11/10/23 0843 by Pilar Land RT Cental Line 10/30/23; 0830; Fredi le Lumen; introducer; 9 Fr; internal jugular vein, right; Ultrasound Guidance; Yes - US guidance used for evaluation of potential access sites, vessel patency and realtime visualization of needle entry with permanent recording.; Luis; MORA; CVC Bundle Performed; 11/05/23; 1115 10/30/23 0830 by Janie Smith MD 11/05/23 1115 by Andree Banks RN PA Catheter 10/30/23; 0830; anali gallegos thermodilution catheter, VIP; Right; internal jugular vein; CVC Bundle Performed; no longer indicated, catheter intact; 11/04/23; 1100 10/30/23 0830 by Janie Smith MD 11/04/23 1100 by Devin Franks RN Incision 10/30/23; 0847; midl ine, anterior; chest; vertical; 12/10/23; 1128 10/30/23 0847 by Ana Lincoln RN 12/10/23 1128 by Jeniffer Burnham RN Incision 10/30/23; 0847; Righ t, medial; leg; non-laparascopic puncture; 12/10/23; 1128 10/30/23 0847 by Ana Lincoln RN 12/10/23 1128 by Jeniffer Burnham RN NG/OG Tube 10/30/23; 1200 (unce rtain of time, placed in OR); Dale pak, orogastric; left mouth; 11/03/23; 1130 (not pressent on assessment) 10/30/23 1200 by Vilma Cameron RN 11/03/23 1130 by Gris Sampson RN documented in this encounter Social History Tobacco Use Types Packs/Day Years Used Date Smoking Tobacco: Former Cigarettes 1 10 Smokeless Tobacco: Never Alcohol Use Standard Drinks/Week Comments Not Currently 0 (1 standard drink = 0.6 oz pure alcohol) Pt reports I haven't had a beer in months [facility] Utilities Answer Date Recorded In the past 12 months has [employer], [employer], or [employer] ([place]) threatened to shut off services in your [...] on file documented as of this encounter OR Notes * Anesthesia Postprocedure Evaluation - Janie Smith MD - 10/30/2023 6:58 PM EDT Department of Anesthesiology Post-procedure Note Patient: Hayden Russo Procedure Summary Date: 10/30/23 Room / Location: [facility] OR [address] [place] [address] MAIN OR Anesthesia Start: 731 Anesthesia Stop: 1254 Procedures: ENDOSCOPIC HARVEST VEIN(S) FOR CABG (WRVU 0.31) (Leg) @CABG, USING ARTERIAL GRAFT;SINGLE ARTERIAL GRAFT (WRVU 33.75) (Chest) @CABG, TWO VENOUS GRAFTS & ARTERIAL GRAFT (WRVU 7.93) Diagnosis: (ASCVD) Surgeons: Timi Dutta MD Responsible Provider: Janie Smith MD Anesthesia Type: general ASA Status: 3 All Anesthesia Providers: Anesthesiologist: Janie Smith MD VICE PRESIDENT OF MANUFACTURING: Augie Lock CRNA Vitals Value Taken Time BP Temp 36.8 ??C (98.2 ??F) 10/30/23 1800 Pulse 100 10/30/23 1858 Resp 18 10/30/23 1858 SpO2 93 % 10/30/23 1858 Pain Level 0 10/30/23 1300 Vitals shown include unfiled device data. Patient Location: [facility] Level of Consciousness: Sedated (Pharmacologic/Intentional) Pain Management: Pain Being Addressed PONV: None Cardiovascular Status: Hemodynamically Stable Respiratory Status: Intubated/Ventilated Postoperative Fluid Status: Intravascular EUvolemia Possible Anesthetic Complications: NONE apparent at time of evaluation Final Primary Anesthesia Type: Comments: * Anesthesia Preprocedure Evaluation - Janie Smith MD - 10/30/2023 7:25 AM EDT Pre-Anesthesia Evaluation for: Hayden Russo a 47 y.o. male. Procedure(s): ENDOSCOPIC HARVEST VEIN(S) FOR CABG (WRVU 0.31) @CABG, USING ARTERIAL GRAFT;SINGLE ARTERIAL GRAFT (WRVU 33.75) @CABG, TWO VENOUS GRAFTS & ARTERIAL GRAFT (WRVU 7.93) Patient Active Problem List Diagnosis Date Noted CAD (coronary artery disease) 08/04/2023 STEMI (ST elevation myocardial infarction) 06/04/2023 Diabetes mellitus 11/27/2018 Hypertension 11/27/[address] elevation myocardial infarction (STEMI) of inferior wall 10/12/2018 Past Medical History: Diagnosis Date Coronary artery disease Diabetes Hypertension Past Surgical History: Procedure Laterality Date CORONARY ANGIOPLASTY WITH STENT PLACEMENT HERNIA REPAIR PRG CATH PLMT LEFT HEART CATH & ARTS W/INJ & ANGIO IMG S&I N/A 08/04/2023 CORONARY ANGIOGRAPHY; W LHC,POSSIBLE PCI (WRVU 5.6) performed by Azul Rowley MD at [facility] Social History Tobacco Use Smoking status: Former Current packs/day: 1.00 Average packs/day: 1 pack/day for 10.0 years (10.0 ttl pk-yrs) Types: Cigarettes Smokeless tobacco: Never Substance Use Topics Alcohol use: Not Currently Comment: Pt reports I haven't had a beer in months Social History Substance and Sexual Activity Drug Use Never No Known Allergies Medications: MAR and/or home medications have been reviewed. Physical Exam: Preprocedure Vitals Current as of 10/30/23 0725 BP: 149/85 Pulse: 67 Resp: 18 SpO2: 99 Temp: 36.7 ??C (98 ??F) Height: 177.8 cm (5' 10) (10/30/23) Weight: 128.9 kg (284 lb 3.2 oz) (10/30/23) BMI: 40.77 IBW: 73 kg (160 lb 15 oz) Last edited 10/30/23 07 by KR Currently displaying vitals information from multiple entries within 180 minutes of most recent vitals. Airway Assessment: Mallampati: III TM distance: >3 FB Neck ROM: full Cardiovascular Assessment: Rhythm: regular Pulmonary Assessment: unlabored breathing Dental Assessment: Misc Assessment: Last Filed Perioperative Cognitive Screening None Anesthesia Plan: ASA 3 general, Note airway examination - plan accordingly. Discussed MORA/invasive monitoring/postoperative ICU management. Informed Consent: Anesthesia Screening documented in this encounter Plan of Treatment Upcoming Encounters Date Type Department Care Team (Late st Contact Info) Description 01/31/2024 9:30 AM EST Office Visit Neph[place] [phone] Donavon Frey MD [facility] [place] [address] 02/06/2024 1:00 PM EST Office Visit Cardiology at [address] [phone] Adrian Tello MD [facility] [place] [address] 04/25/2024 10:30 AM EST Office Visit Sleep Center at [facility] [address] [place] [phone] Maria De Jesus Lange APRN [facility] [place] [address] documented as of this encounter Visit Diagnoses Not on filedocumented in this encounter Administered Medications Inactive Administered Medications - up to 3 most recent administrations Medication Order MAR Action Action Date Dose Rate Site calcium chloride 10% (100 mg/mL) injection Intravenous, PRN, Starting on Mon10/30/23 at 1137, Until Mon10/30/23 at 1325, Anesthesia Intra-op, Routine Given 10/30/2023 11:46 AM EDT 250 mg Given 10/30/2023 11:45 AM EDT 250 mg Given 10/30/2023 11:44 AM EDT 200 mg cefTRIAXone (Rocephin) injection Intravenous, PRN, Starting on Mon10/30/23 at 0832, Until Mon10/30/23 at 1325, Anesthesia Intra-op, Routine Given 10/30/2023 8:32 AM EDT 2 g dexmedeTOMIDine (Precedex) (4 mcg/mL) in sodium chloride 0.9% 50 mL infusion Intravenous, CONTINUOUS PRN, Starting on Mon10/30/23 at 1158, Until Mon10/30/23 at 1325, Anesthesia Intra-op New Bag 10/30/2023 11:58 AM EDT 0.4 mcg/kg/hr 12.89 mL/hr EPINEPHrine (Adrenalin) (8 mcg/mL) in dextrose 5% 250 mL infusion Intravenous, CONTINUOUS PRN, Starting on Mon10/30/23 at 1116, Until Mon10/30/23 at 1325, Anesthesia Intra-op Rate/Dose Change 10/30/2023 12:25 PM EDT 2 mcg/min 15 mL/hr Rate/Dose Change 10/30/2023 12:03 PM EDT 4 mcg/min 30 mL/ hr New Bag 10/30/2023 11:16 AM EDT 2 mcg/min 15 mL/hr fentaNYL (pf) (50 mcg/mL) multi-dose injection Intravenous, PRN, Starting on Mon10/30/23 at 0843, Until Mon10/30/23 at 1325, Anesthesia Intra-op, Routine Given 10/30/2023 12:07 PM EDT 250 mcg Given 10/30/2023 11:40 AM EDT 150 mcg Given 10/30/2023 11:39 AM EDT 100 mcg heparin (porcine) (1,000 units/mL) injection Intravenous, PRN, Starting on Mon10/30/23 at 0927, Until Mon10/30/23 at 1325, Anesthesia Intra-op, Routine Given 10/30/2023 9:27 AM EDT 35,000 Units insulin regular (Myxredlin) (1 unit/mL) in sodium chloride 0.9% 100 mL infusion Intravenous, CONTINUOUS PRN, Starting on Mon10/30/23 at 1058, Until Mon10/30/23 at 1325, Anesthesia Intra-op, Routine Rate/Dose Change 10/30/2023 11:56 AM EDT 0.5 Units/hr 0.5 mL/hr New Bag 10/30/2023 10:58 AM EDT 1.5 Units/hr 1.5 mL/hr lactated ringers infusion Intravenous, CONTINUOUS PRN, Starting on Mon10/30/23 at 0732, Until Mon10/30/23 at 1325, Anesthesia Intra-op New Bag 10/30/2023 7:32 AM EDT midazolam (pf) (Versed) (1 mg/mL) multi-dose injection Intravenous, PRN, Starting on Mon10/30/23 at 0800, Until Mon10/30/23 at 1325, Anesthesia Intra-op, Routine Given 10/30/2023 8:00 AM EDT 2 mg Given 10/30/2023 7:36 AM EDT 1 mg Given 10/30/2023 7:32 AM EDT 1 mg milrinone (Primacor) (0.2 mg/mL) in dextrose 5% 100 mL infusion Intravenous, CONTINUOUS PRN, Starting on Mon10/30/23 at 1209, Until Mon10/30/23 at 1325, Anesthesia Intra-op, Routine New Bag 10/30/2023 12:09 PM EDT 0.375 mcg/kg/min 14.501 mL/hr milrinone (Primacor) injection Intravenous, PRN, Starting on Mon10/30/23 at 1209, Until Mon10/30/23 at 1325, Anesthesia Intra-op, Routine Given 10/30/2023 12:09 PM EDT 5 mg NORepinephrine (Levophed) (16 mcg/mL) in dextrose 5% 250 mL infusion Intravenous, CONTINUOUS PRN, Starting on Mon10/30/23 at 0905, Until Mon10/30/23 at 1325, Anesthesia Intra-op, Routine Rate/Dose Change 10/30/2023 12:25 PM EDT 10 mcg/min 37.5 mL/hr Rate/Dose Change 10/30/2023 12:06 PM EDT 2 mcg/min 7.5 mL /hr Rate/Dose Change 10/30/2023 12:04 PM EDT 4 mcg/min 15 mL/ hr propofoL (Diprivan) (10 mg/mL) infusion Intravenous, CONTINUOUS PRN, Starting on Mon10/30/23 at 1140, Until Mon10/30/23 at 1325, Anesthesia Intra-op, Routine New Bag 10/30/2023 11:40 AM EDT 50 mcg/kg/min 28.62 mL/hr propofoL (Diprivan) 10 mg/mL bolus injection (Anesthesia) Intravenous, PRN, Starting on Mon10/30/23 at 0847, Until Mon10/30/23 at 1325, Anesthesia Intra-op Given 10/30/2023 8:47 AM EDT 20 mg Given 10/30/2023 8:01 AM EDT 100 mg protamine (10 mg/mL) injection Intravenous, PRN, Starting on Mon10/30/23 at 1141, Until Mon10/30/23 at 1325, Anesthesia Intra-op, Routine Given 10/30/2023 11:41 AM EDT 260 mg rocuronium (Zemuron) (10 mg/mL) multi-dose injection Intravenous, PRN, Starting on Mon10/30/23 at 0854, Until Mon10/30/23 at 1325, Anesthesia Intra-op, Routine Given 10/30/2023 11:25 AM EDT 50 mg Given 10/30/2023 8:54 AM EDT 50 mg Given 10/30/2023 8:02 AM EDT 100 mg sodium chloride 0.9% infusion Intravenous, CONTINUOUS PRN, Starting on Mon10/30/23 at 0830, Until Mon10/30/23 at 1325, Anesthesia Intra-op New Bag 10/30/2023 8:30 AM EDT tranexamic acid (Cyklokapron) (100 mg/mL) infusion Intravenous, CONTINUOUS PRN, Starting on Mon10/30/23 at 0830, Until Mon10/30/23 at 1325, Anesthesia Intra-op, Routine New Bag 10/30/2023 8:30 AM EDT 1 mg/kg/hr 1.289 mL/hr tranexamic acid (Cyklokapron) (100 mg/mL) IV bolus Intravenous, Administer over 8 Hours, PRN, Starting on Mon10/30/23 at 0830, Until Mon10/30/23 at 1325, Anesthesia Intra-op, Routine Given 10/30/2023 8:30 AM EDT 1,290 mg documented in this encounter Care Teams Toy Consultant Relationship 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
--- OUTSIDE RECORDS SUMMARY | 2024-01-04 13:17 | XMS_ITS | Encounter Summary ---
Author Organization [facility] [place] [address] Care Team Providers Care Heat Regulator Name Role Phone Bandar Hahn MD Primary Care Provider [phone] Reason for Referral * Consultation (Routine) - Closed Specialty Diagnoses / Procedures Referred By Martha vasquez Referred To Contact Cardiology Diagnoses ST elevation myocardial infarction involving right coronary artery Jonathan Rojas MD [facility] [address] Cardiac Rehab, [address] [place] [address] Referral ID Status Reason Start Date Expiration Date V isits Requested Visits Authorized [id number] Closed Consult, Test & Treat Non PCP 06/07/2023 12/04/2023 36 36 Reason for Visit * Auth/Cert (Routine) Specialty Diagnoses / Procedures Referred By Martha vasquez Referred To Contact Diagnoses STEMI (ST elevation myocardial infarction) STEMI Procedures CARDIAC CATHETERIZATION Jonathan Rojas MD [facility] [place] [address] [facility] Referral ID Status Reason Start Date Expiration Date Visits Re quested Visits Authorized [id number] 1 1 Encounter Details Date Type Department Care Team (Late st Contact Info) Description 06/04/2023 4:05 PM EDT - 06/07/2023 1:28 PM EDT Hospital Encounter Heart and Vascular Unit Level 4 Wing A at [facility] [place] [address] [facility] [address] [facility] [address] ST elevation myocardial infarction involving right coronary artery Discharge Disposition: Home Social History Tobacco Use Types Packs/Day Years Used Date Smoking Tobacco: Former Cigarettes 1 10 Smokeless Tobacco: Never Alcohol Use Standard Drinks/Week Comments Yes 7 (1 standard drink = 0.6 oz pur e alcohol) [facility] Utilities Answer Date Recorded In the past 12 months has th e inSilica, gas, oil, or water [email or web address] threatened to shut off services in your [...] or Doing Things Outside Your Home? no 06/04/2023 Feels Threatened by Someone no 05/21 Feels Unsafe at Home or Work/School no 06/04/2023 Physical Signs of Abuse Present no 06/04/2023 Sex and Gender Information Value Date Recorded Sex Assigned at Not on file Gender Identity Not on file Sexual Orientation Not on file documented as of this encounter Last Filed Vital Signs Vital Sign Reading Time Taken Comments Blood Pressure 118/78 06/07/2023 11:27 AM EDT Pulse 82 06/07/2023 11:27 AM EDT Temperature 36.6 ??C (97.8 ??F) 06/07/2023 1 1:27 AM EDT Respiratory Rate 19 06/07/2023 11:2 7 AM EDT Oxygen Saturation 99% 06/07/2023 11: 27 AM EDT Inhaled Oxygen Concentration - - Weight 118.5 kg (261 lb 3.9 oz) 06/07/2023 6:00 AM EDT Height 177 cm (5' 9.69) 06/04/2023 3:00 PM EDT Body Mass Index 37.82 06/04/2023 3:00 PM EDT documented in this encounter Discharge Summaries * John Katz MD - 06/07/2023 11:00 AM EDT Inpatient - Discharge Summary Patient Name: Shoshana Russo Patient Age: 47 y.o. Birthdate: 1975 Admit date: 06/04/2023 Discharge date and time: 06/07/2023 Attending Physician: Jonathan Rojas MD Follow-up recommendations to providers: -PCP appointment made for 06/19 at 1PM - Please continue DAPT w/ ASA and plavix for at least 1 year unless otherwise contraindicated - Will follow with propagator laborer at for staged PCI of his Lcx in stent restenosis - PCP please consider additional titration of insulin for better glucose control as his A1C is 11 - Stopped lisinopril due to c/f SEAN. BP is well controlled on Carvedilol. If BP elevated and Cr hasnormalized, can consider restarting. New Medications - Clopidogrel 75 mg daily - coreg 6.25 mg BID - pantoprazole 40 mg daily Stop Taking: - omeprazole - metoprolol - lisinopril Discharge Diagnoses (Hospital Problems) and Secondary Diagnoses (Chronic Problems): Active Hospital Problems Diagnosis STEMI (ST elevation myocardial infarction) Resolved Hospital Problems No resolved problems to display. Active Non-Hospital Problems Diagnosis Diabetes mellitus Hypertension Acute ST elevation myocardial infarction (STEMI) of inferior wall Cardiac Catheterization/ PCI (STEMI presentation) 10/12/18: Conclusions: * Three vessel coronary artery disease (LAD, LCX and RCA) * Elevated left ventricular end diastolic pressure * Successful stent insertion of the distal RCA lesion * Successful stent insertion of the mid LCX lesion Operations/Major Procedures: C w/ PCI to RCA 06/04/23 History of Presentation: (Per admission H&P) Patient has had history of prior VT with 2x MARIALUISA to RCA and Lcx in 2019. Had been on ASA + Plavix with Plavix discontinued ~a year ago. He endorses new back pain with radiation to b/l arms starting yesterday morning, progressing to chest pressure and JULES c/f VT. Initially presented to [place] ED. OSH ED Course: VSS on presentation, BP 130s/70s w/ HR 100s. EKG showed sinus tachycardia with ST-elevations in inferior leads, borderline elevations in V2- V4. Loaded with ASA + Plavix and started heparin gtt prior to [place] [facility] Labs obtained but results not sent from OSH. Received [facility]. Per preliminary [facility] report, [facility] showed proximal 100% disease in RCA, diffuse mild LMCA and LAD disease, and multiple discrete in-stent restenoses from prior Lcx stent. Received 2x MARIALUISA to mid and proximal RCA. Will possibly need staged PCI to Lcx pending renal function. Seen at bedside in good spirits. Feels tired but denies any current chest pain or dyspnea. Denies worsening MONTENEGRO or angina, although has had fatigue that he attributes to recently starting semaglutidefor diabetes and weight loss. Takes 45u long-acting insulin daily with ~20u short-acting at mealtime. No recent fevers/chills, nausea/vomiting, constipation, or diarrhea. Stopped metoprolol per PCP. ROS: as above Family History - CAD, HTN, HLD in father - T2DM in paternal grandparents Social History - ~10 pack-year smoking hx, quit Hospital Course: Shoshana Russo was admitted to the cardiology service on 06/04/2023 and discharged on 06/07/2023 The following issues were addressed during this admission: #inferior STEMI #HTN #HLD #Angina Arrived to propagator laborer where found to have single discrete total occlusion of the proximal RCA. 2x DESplaced with good angiographic and IVUS results. Maintained on plavix and ASA. Continued home atorvastatin. His lisinopril was held given elevated creatinine and contrast load. After his cath, his angina symptoms went away, but he did have them on exertion. Low dose coreg was started which improved his exertional capacity and resolved his angina. #T2DM A1C noted to be 11.2. Has not tolerated GLP in the past. DM management involved. See meds for updated meds. Deferring further management to PCP. Primary Team Inpatient Physicians at [facility] was: Attending Physician(s): Jonathan Rojas MD Resident(s): John Katz MD Inpatient Provider Contact Information: If you have questions about this document please contact the [facility] pug mill operator at and ask for one of the providers above. If these providers are unavailable your call will be answered by an on- call hospital physician. Important Lab Data: Recent Labs 06/07/23 0540 06/06/23 0357 06/05/23 0304 WBC 8.6 10.6* 10.7* HGB 9.7* 10.2* 10.6* PLATELET 237 254 262 Recent Labs 06/07/23 0540 06/06/23 0357 06/05/23 0304 NA 136 136 138 K 4.7 5.1* 5.0 CO2 21* 22 22 CL 103 104 107 BUN 34* 32* 30* CREATININE 2.49* 2.57* 2.16* CALCIUM 8.8 8.9 8.6 MAGNESIUM 0.98 0.91 0.89 ANIONGAP 12 10 9 No results for input(s): PROT, ALBUMIN, BILITOT, BILIDIR, AST, ALT, ALKPHOS in the last 168 hours. No results for input(s): TROPONINT, CK in the last 168 hours. Recent Labs 06/05/23 0304 06/04/23 1857 TSH -- 3.68 HA1C 11.2* -- TRIG 405 -- HDL 25 -- LDLCHOL Not Calculated -- Diagnostic Studies: [facility] 06/04/23 Preliminary findings: Right dominant circulation LVEDP 17 mmHg RCA: proximal 100% occlusion, with L to R collaterals LMCA: entire vessel mild diffuse LAD: entire vessel mild diffuse LCX: proximal to mid vessel 80% multiple discrete ISR from previously placed stent (2018) JRA 4 guide, PCI to RCA with 2.75 mm x 38 mm JOE frontier MARIALUISA to mid vessel post dilated with 3.0 x 12 mm NC EUPHORA; 3.0 x 18 mm JOE frontier MARIALUISA to proximal vessel; post-dilated with 3.5 x 15 mm NC EUPHORA TTE 06/05/23 Interpretation Summary Left ventricular systolic function is [...] and inferior WMA, but RV was normal. Discharge Conditions/Prognosis: Upon discharge the pt is hemodynamically stable, fully ambulatory without requiring supplemental oxygen, afebrile and pain free. Vital Signs on Day of Discharge: Last value Range last 24 hrs Temperature Temp: 36.6 ??C (97.8 ??F) Temp: [36.4 ??C (97.6 ??F)-36.7 ??C (98 ??F)] Heart Rate Heart Rate: 82 Heart Rate: [81-98] Blood Pressure BP: 118/78 BP: (110-150)/(65-91) Respiratory Rate Resp: 19 Resp: [12-22] SpO2 SpO2: 99 % SpO2: [94 %-99 %] Discharge to: Home Discharge Medications: Your Medications New Medications Dose Details carvediloL 6.25 mg tablet Commonly known as: Coreg Take 1 tablet by mouth 2 times daily. 6.25 mg Quantity: 60 tablet Refills: 3 clopidogreL 75 mg tablet Commonly known as: Plavix Take 1 tablet by mouth daily. 75 mg Quantity: 90 tablet Refills: 3 pantoprazole EC [address] tablet Commonly known as: Protonix Take 1 tablet by mouth daily. Replaces: omeprazole [address] capsule 40 mg Quantity: 90 tablet Refills: 3 Continued medications, unchanged Dose Details aspirin 81 mg chewable tablet Take 81 mg by mouth daily. 81 mg Quantity: 30 tablet Refills: 3 atorvastatin 80 mg tablet Commonly known as: Lipitor Take 1 tablet by mouth every evening. 80 mg Quantity: 90 tablet Refills: 3 blood-glucose meter Kit Commonly known as: FREESTYLE USE TO CHECK GLUCOSE THREE TIMES DAILY Refills: 0 humaLOG KwikPen 100 unit/mL Insulin Pen INJECT 20 UNITS SUBCUTANEOUSLY UP TO THREE TIMES DAILY BEFORE MEALS Generic drug: insulin lispro Refills: 3 Insulin Basaglar KwikPen U-100 100 unit/mL (3 mL) pen INJECT 50 UNITS SUBCUTANEOUSLY EVERY DAY AT BEDTIME Generic drug: insulin glargine Refills: 1 nitroGLYcerin 0.4 mg sublingual tablet Commonly known as: Nitrostat Place 1 tablet under the tongue every 5 minutes as needed for Chest pain. 0.4 mg Quantity: 90 tablet Refills: 12 OneTouch Ultra Blue Test Strip Strip USE 1 STRIP TO CHECK GLUCOSE THREE TIMES DAILY . Generic drug: blood sugar diagnostic strips Refills: 11 STOPPED Medications lisinopriL 10 mg tablet Commonly known as: Zestril metoprolol succinate XL 100 mg ER 24 hr tablet Commonly known as: Toprol-XL omeprazole [address] capsule Commonly known as: PriLOSEC Replaced by: pantoprazole EC [address] tablet Updated Allergies/ADRs: No Known Allergies Instructions & Follow-up: Patient Instructions Shoshana, You were admitted for a heart attack. This was treated with stents to your coronary arteries. It isvitally important that you continue your aspirin and plavix every day to keep the stents open. You were also having some chest pain and back pain on exertion and started on a medication call carvedilol, which can help with these symptoms and control your blood pressure. Call your doctor if: Chest pain, dyspnea, pain or swelling in legs occurs, or for weight gain of 2 pounds overnight or 5pounds in 5 days. If you have non-emergent questions, prior to your follow-up visit call: Monday-Monday between the hours of 8AM-5PM please call the Cardiology Clinic [phone] to speak with a nurse. All other hours please call the Hospital Nursing Project Coordinator [phone] and ask to speak to the table cover folder on-call. Return to work: One week Driving: No driving for 48 hours after cath Follow up Appointments: Doctor Where Phone # Date Time [place] [address] [id number] 06/20/23 1:00PM [facility] C[facility] ; Interventional Cardiology [facility] [phone] 07/25/23 1:20PM Home oxygen therapy: None Arrangements for VNA/home care: None General Instructions None Discharge References/Attachments None To-Do List To-Do List Future Appointments Provider Department Dept Phone 07/25/2023 1:20 PM Olga Chavarria PA Cardiology at [facility] Arrive at: Room Service Waiter/Waitress Area 4A [phone] Future Orders Complete By Expires Referral to Cardiac Rehab [[id number] Custom] As directed Process Instructions: If no progress note charted, please enter Clinical details in comments. Scheduling Instructions: Questions: My question or request is: STEMI. Cardiac rehab at [facility]. Provider Contact Information: MD [address] / [place] [phone] Signed: John Katz MD Discharged: 06/07/2023 Associated attestation - Jonathan Rojas MD - 06/07/2023 1:40 PM EDT Cardiology Attending Addendum I have interviewed and examined the patient, reviewed the available data, and have discussed my findings, assessment and plan with the patient and the team on rounds today. I agree with Dr. Katz's note as below which reflects our discussion. Jonathan Rojas MD 06/07/23 1:40 PM Pager #[phone] documented in this encounter Discharge Instructions * Patient Instructions* Ishan Young DO - 06/06/2023 2:07 PM EDT Shoshana, You were admitted for a heart attack. This was treated with stents to your coronary arteries. It isvitally important that you continue your aspirin and plavix every day to keep the stents open. You were also having some chest pain and back pain on exertion and started on a medication call carvedilol, which can help with these symptoms and control your blood pressure. Call your doctor if: Chest pain, dyspnea, pain or swelling in legs occurs, or for weight gain of 2 pounds overnight or 5pounds in 5 days. If you have non-emergent questions, prior to your follow-up visit call: Monday-Monday between the hours of 8AM-5PM please call the Cardiology Clinic [phone] to speak with a nurse. All other hours please call the Hospital Nursing Project Coordinator [phone] and ask to speak to the table cover folder on-call. Return to work: One week Driving: No driving for 48 hours after cath Follow up Appointments: Doctor Where Phone # Date Time PCP Bandar Hahn MD [facility] [place] [phone] 06/20/23 1:00PM [facility] ; Interventional Cardiology [facility] [phone] 07/25/23 1:20PM Home oxygen therapy: None Arrangements for VNA/home care: None documented in this encounter Medications at Time of Discharge Medication Sig Dispensed Refills Start Date End Date pantoprazole EC (Protonix) [address] tablet Take 1 tablet by mouth daily. 90 tablet 3 06/07/2023 blood-glucose meter (FREESTYLE) Kit USE TO CHECK GLUCOSE THREE TIMES DAILY 0 07/18/2018 ONETOUCH ULTRA BLUE TEST STRIP Strip USE 1 STRIP TO CHECK GLUCOSE THREE TIMES DAILY . 11 11/01/2018 carvediloL (Coreg) 6.25 mg tablet Take 1 tablet by mouth 2 times daily. 60 tablet 3 06/07/2023 09/27/2023 clopidogreL (Plavix) 75 mg tablet Take 1 tablet by mouth daily. 90 tablet 3 06/07/2023 08/04/2023 JUAN COSTA U-100 INSULIN 100 unit/mL (3 mL) pen [...] 10/14/2018 11/18/2023 documented as of this encounter Progress Notes * Alice Villalta RN - 06/07/2023 1:25 PM EDT Patient AVS reviewed, questions answered, PIV removed intact, VSS, patient discharge to home, cath site no bleeding or hematoma present * Ishan Young, - 06/06/2023 9:14 AM EDT Inpatient Cardiology Progress Note Patient Name: Shoshana Russo Date of Admission: 06/04/2023 ( Hospital Day 2 days ) Service: S1 ID: Shoshana Russo is a 47 y.o. male w/ PMHx of VT s/p 2x MARIALUISA to RCA and Lcx in 2018, HTN, HLD, T2DM presenting as transfer for STEMI. Active Problems: Active Hospital Problems Diagnosis STEMI (ST elevation myocardial infarction) Resolved Hospital Problems No resolved problems to display. 24 hr events: - No acute events overnight - 2 MARIALUISA to RCA, ISR of Lcx 06/03 - Continuing DAPT - Echo consistent with WMA w/ associated coronary territories - Feeling well this AM ROS: Has been having his back pain on exertion which is how his STEMI presented. Otherwise slept well. Physical Exam: Last value Range last 24 hrs Temperature Temp: 36.5 ??C (97.7 ??F) Temp: [36.5 ??C (97.7 ??F)-37 ??C (98.6 ??F)] Heart Rate Heart Rate: 90 Heart Rate: [82-98] Blood Pressure BP: 144/81 BP: (118-144)/(81-88) Respiratory Rate Resp: 17 Resp: [14-20] SpO2 SpO2: 96 % SpO2: [84 %-100 %] Weight: Patient Vitals for the past 168 hrs: Weight 06/06/23 0600 119 kg (262 lb 6.4 oz) 06/05/23 0632 119.4 kg (263 lb 4.8 oz) 06/04/23 1500 117 kg (257 lb 15 oz) Admit Weight: 117 kg Yesterday's net I/O's: Intake/Output Summary (Last 24 hours) at 06/06/2023 0914 Last data filed at 06/06/2023 0816 Gross per 24 hour Intake 1219 ml Output 2050 ml Net -831 ml Net I/O's since admission: Patient Vitals for the past 168 hrs: Weight 06/06/23 0600 119 kg (262 lb 6.4 oz) 06/05/23 0632 119.4 kg (263 lb 4.8 oz) 06/04/23 1500 117 kg (257 lb 15 oz) Gen: pleasant male in NAD HEENT: MMM CV: RRR, s1/s2 of nl character and amplitude, no m/r/g, Resp: CTAB Abd: nondistended, soft, NT, nabs throughout Ext: WWP, ++ dp/pt pulses, trace edema Neuro: alert and responsive. Without focal deficit Labs Recent Labs 06/06/23 0357 06/05/23 0304 06/04/23 185 WBC 10.6* 10.7* 13.9* HGB 10.2* 10.6* 11.4* HCT 34.1* 36.4* 38.8* PLATELET 254 262 272 Recent Labs 06/06/23 0357 06/05/23 0304 06/04/23 185 NA 136 138 137 K 5.1* 5.0 5.3* CL 104 107 104 CO2 22 22 23 BUN 32* 30* 29* CREATININE 2.57* 2.16* 2.07* Recent Labs 06/06/23 0357 06/05/23 0304 06/04/23 185 CALCIUM 8.9 8.6 9.1 MAGNESIUM 0.91 0.89 0.85 Scheduled Medications: gabapentin 200 mg Oral Nightly insulin lispro 0-8 Units Subcutaneous TID WC senna-docusate 2 tablet Oral BID aspirin EC 81 mg Oral Daily clopidogreL 75 mg Oral Daily atorvastatin 80 mg Oral QPM pantoprazole EC 40 mg Oral Daily sodium chloride 0.9 % (flush) 5 mL Intravenous BID insulin lispro 1-6 Units Subcutaneous Q4H ISAMAR insulin glargine (Lantus;Semglee) (100 unit/mL) subcutaneous injection 25 Units Subcutaneous Daily heparin (porcine) 5,000 Units Subcutaneous Q8H ISAMAR melatonin 6 mg Oral Nightly PRN Medications: insulin lispro, polyethylene glycoL (MIRALAX) oral powder AND bisacodyL AND bisacodyl EC AND lactulose AND lactulose AND magnesium citrate AND Tap water enema, sodium chloride0.9 % (flush), lidocaine, nitroGLYcerin, glucose 40% oral geL OR dextrose OR glucagon Assessment & Plan: Shoshana Russo is a 47 y.o. male w/ PMHx of VT s/p 2x MARIALUISA to RCA and Lcx in 2019, HTN, HLD, T2DM presenting as transfer for STEMI. 06/05: Pt doing well so far, will touch base with interventional if staged PCI is needed this admission. Ianticipate that it can happen within 45 days/6 weeks. For his DM, will adjust his regimen per Endo recs w/ PCP follow-up given poor previous control w/ A1C of 11. Pt has been having his back pain which is how his STEMI presented on exertion. Will start coreg andreassess. Spot dose diuresis today. #Inferior STEMI #HTN #HLD #Angina - s/p 2x MARIALUISA to RCA - continue home ASA 81mg - start Plavix 75mg qd - continue home atorvastatin 80mg qd - holding lisinopril given recent cath - switch home omeprazole 20mg qd -> pantoprazole 40mg qd - Coreg 6.25mg BID -Spot dose lasix Cardiac Risk Stratification --HbA1c 11.2 --TSH 3.68 --Lipids LDL is 50 #T2DM - takes 45u long-acting insulin at home, ~20u w/ meals - start 25u glargine - moderate sliding-scale insulin q4h - DM consult, pending recs #Routine Diet: Daily Healthy Menu Choices/Cardiac diet ([facility]Diet) DVT Prophylaxis: SC heparin GI Prophylaxis: pantoprazole Dispo: Pending clinical course Code Status: Attempt Cardiopulmonary Resuscitation - Inpatient Ishna Young DO Internal Medicine PGY-1 Pager [phone], M1-S2 Service Associated attestation - Jonathan Rojas MD - 06/06/2023 3:36 PM EDT Cardiology Attending Addendum: I have personally interviewed and examined the patient and reviewed appropriate data, including labs, ECGs and other diagnostic studies. I agree with the principal findings documented herein. The assessment and plan were formulated in discussion with me. Major issues addressed: #Inferior STEMI s/p RCA PCI with residual LCX ISR #Ischemic cardiomyopathy with preserved ejection fraction LVEF 51% with inferior/inferolateral RWMA #Mild to moderately reduced RV function Plan: -DAPT -high intensity statin -co-reg, nitrates, lasix today -ambulate including stairs -tele monitoring -Monitor Cr trend -Consider timing of Lcx revascularization based on symptoms and course (inpatient or outpatient) Jonathan Rojas MD Pager [phone] Clinic: [phone] 06/06/23 3:36 PM Attending Attestation Attending Attestation and Certification Please see Ishan Young DO's note for details of the patient history [...] of two midnights or is on the [facility] inpatient only procedure list (status C) due to: acute myocardial infarction requiring titration of IV medication and fluid monitoring * Ishan Young DO - 06/05/2023 7:35 AM EDT Inpatient Cardiology Progress Note Patient Name: Shoshana Russo Date of Admission: 06/04/2023 ( Hospital Day 1 day ) Service: S1 ID: Shoshana Russo is a 47 y.o. male with Active Problems: Active Hospital Problems Diagnosis STEMI (ST elevation myocardial infarction) Resolved Hospital Problems No resolved problems to display. 24 hr events: - No acute events overnight - 2 MARIALUISA to RCA, ISR of Lcx. - Loaded with ASA, plavix - pending echo - Feeling well this AM, got cath ROS: Denies CP, SOB, palpitations, PND, Orthopnea, dizziness/LH, LE swelling or pain, n/v, abd pain. Marked improvement in his CP which has resolved. Physical Exam: Last value Range last 24 hrs Temperature Temp: 36.8 ??C (98.3 ??F) Temp: [36.7 ??C (98.1 ??F)-37.1 ??C (98.7 ??F)] Heart Rate Heart Rate: 86 Heart Rate: [86-98] Blood Pressure BP: 130/82 BP: (130-162)/(82-99) Respiratory Rate Resp: 16 Resp: [9-19] SpO2 SpO2: 94 % SpO2: [93 %-99 %] Weight: Patient Vitals for the past 168 hrs: Weight 06/05/23 0632 119.4 kg (263 lb 4.8 oz) 06/04/23 1500 117 kg (257 lb 15 oz) Admit Weight: 117 kg Yesterday's net I/O's: Intake/Output Summary (Last 24 hours) at 06/05/2023 0735 Last data filed at 06/05/2023 0030 Gross per 24 hour Intake 1215 ml Output 785 ml Net 430 ml Net I/O's since admission: Patient Vitals for the past 168 hrs: Weight 06/05/23 0632 119.4 kg (263 lb 4.8 oz) 06/04/23 1500 117 kg (257 lb 15 oz) Gen: pleasant male in NAD HEENT: MMM CV: Tachycardic, s1/s2 of nl character and amplitude, no m/r/g, Resp: CTAB Abd: nondistended, soft, NT, nabs throughout Ext: WWP, ++ dp/pt pulses, trace edema Neuro: alert and responsive. Without focal deficit Labs Recent Labs 06/05/23 0304 06/04/23 1857 WBC 10.7* 13.9* HGB 10.6* 11.4* HCT 36.4* 38.8* PLATELET 262 272 Recent Labs 06/05/23 0304 06/04/23 1857 NA 138 137 K 5.0 5.3* CL 107 104 CO2 22 23 BUN 30* 29* CREATININE 2.16* 2.07* Recent Labs 06/05/23 0304 06/04/23 1857 CALCIUM 8.6 9.1 MAGNESIUM 0.89 0.85 Scheduled Medications: gabapentin 200 mg Oral Nightly aspirin EC 81 mg Oral Daily clopidogreL 75 mg Oral Daily atorvastatin 80 mg Oral QPM pantoprazole EC 40 mg Oral Daily sodium chloride 0.9 % (flush) 5 mL Intravenous BID insulin lispro 1-6 Units Subcutaneous Q4H ISAMAR insulin glargine (Lantus;Semglee) (100 unit/mL) subcutaneous injection 25 Units Subcutaneous Daily heparin (porcine) 5,000 Units Subcutaneous Q8H ISAMAR melatonin 6 mg Oral Nightly PRN Medications: sodium chloride 0.9 % (flush), lidocaine, nitroGLYcerin, glucose 40% oral geL OR dextrose OR glucagon Assessment & Plan: Shoshana Russo is a 47 y.o. male w/ PMHx of VT s/p 2x MARIALUISA to RCA and Lcx in 2019, HTN, HLD, T2DM presenting as transfer for STEMI. 06/04: Recovering well from [facility] w/ PCI and placement of 2x MARIALUISA to RCA. Noted to have ISRs at prior Lcx stent from 2019; may need staged PCI for Lcx lesions pending renal function (possible CKD at baseline) given recent contrast load from angiography. Will defer ordering TTE. Otherwise will restart Plavix (d/c one year prior) and continue home ASA, atorvastatin, lisinopril (as tolerated by renal function). Pt appears a little volume overloaded with elevated JVP, plan to diurese with 40mg IV lasix. Pending recs from interventional team if he is eligible for staged PCI of lcx. #inferior STEMI #HTN #HLD - s/p 2x MARIALUISA to RCA - continue home ASA 81mg - start Plavix 75mg qd - continue home atorvastatin 80mg qd - holding lisinopril given recent cath - switch home omeprazole 20mg qd -> pantoprazole 40mg qd Cardiac Risk Stratification --HbA1c 11.2 --TSH 3.68 --Lipids LDL is 50 #T2DM - takes 45u long-acting insulin at home, ~20u w/ meals - start 25u glargine - moderate sliding-scale insulin q4h - DM consult, pending recs #Routine Diet: Daily Healthy Menu Choices/Cardiac diet [place] [place] DVT Prophylaxis: SC heparin GI Prophylaxis: pantoprazole Dispo: Pending clinical course Code Status: Attempt Cardiopulmonary Resuscitation - Inpatient Ishan Young DO Internal Medicine PGY-1 Pager [phone], M1-S1 Service Associated attestation - Jonathan Rojas MD - 06/05/2023 6:53 PM EDT Cardiology Attending Addendum: I have personally interviewed and examined the patient and reviewed appropriate data, including labs, ECGs and other diagnostic studies. I agree with the principal findings documented herein. The assessment and plan were formulated in discussion with me. Major issues addressed: #Inferior STEMI s/p RCA PCI with residual LCX ISR #Ischemic cardiomyopathy with preserved ejection fraction LVEF 51% with inferior/inferolateral RWMA #Mild to moderately reduced RV function Plan: -DAPT -high intensity statin -tele monitoring -Monitor Cr trend -Consider timing of Lcx revascularization based on symptoms and course (inpatient or outpatient) Jonathan Rojas MD Pager [phone] Clinic: [phone] 06/05/23 6:52 PM Attending Attestation Attending Attestation and Certification Please see Ishan Young DO's note for details of the patient history [...] only procedure list (status C) due to: acute myocardial infarction requiring titration of IV medication and fluid monitoring * Antoni Gonzalez MD - 06/04/2023 2:13 PM EDT STEMI Alert Note Index Event Data Hospital to which patient presented: [facility] Medical History (prior to current presentation) Atrial Fibrillation/ Atrial Flutter: No Hypertension: Yes Dyslipidemia: Yes Angina: Yes Myocardial Infarction: Yes Diabetes Mellitus: Yes Prior Percutaneous Coronary Intervention: Yes Prior Coronary Artery Bypass Graft: No Cerebrovascular Disease: No Tobacco Use: Yes Presenting Symptoms per OSH/EMS Time of continuous symptom onset to ED presentation 24 hours Estimated total time from symptom onset to treatment (PCI or thrombolytic) >4 hours: Yes Chest Pain: Yes Shortness of breath: Yes Syncope: No Cardiac Arrest: No Other: Diaphoresis and Nausea ECG Date and Time Initial ED EC06/04/2023 1:45 PM Date and Time First Diagnostic ECG (can be pre-hospital or ED): 06/04/2023 1:45 PM Rhythm: Sinus EKG Interpretation(choose all that apply): Inferior ST elevation Meets Strict STEMI ECG Criteria New ST elevation in V2-V3 of >- 2 mm in men, or >- 1.5 mm in women: No New ST elevation of >1 mm in other contiguous leads including limb leads: Yes Evidence of Q-wave infarction: Yes LBBB meeting Sgarbossa criteria for STEMI: No ST depressions with prominent R wave in V2-V3 (suspected posterior infarct): No Exam at Presentation HR: 110 SBP: 170 DBP: 94 Killip class: I (no rales) FAUZIA Risk Score for STEMI Age: <65 years (0 points) Diabetes, Hypertension or Angina: Yes (1 point) Systolic BP <100 mmhg: No (0 points) Heart rate >100: Yes (2 points) Killip Class II-IV (JVD or any pulmonary exam findings of CHF): No (0 points) Weight <67 kg (147 lbs): No (0 points) Anterior ST Elevation or LBBB: No (0 points) Time to treatment > 4 hours: Yes (1 point) Total Points and % 30 day mortality risk (choose one): 4 points= 7.3% Treatment Beta Yajaira (Any): None Asprin (Any): Yes Adjunctive PLT Inhibitor: Clopidogrel 300mg Anti-thrombotic used: Unfractionated Heparin Thrombolytic: TNK(tenecteplase) Contraindications to thrombolytic: Not contraindicated Plan STEMI Alert called: Yes Sprayer Automatic Spray Machine Activated by: Radiation Physicist Initial Disposition: Admit Sprayer Automatic Spray Machine documented in this encounter H&P Notes * Leo Finnegan MD - 06/04/2023 6:33 PM EDT Images from the original note were not included. Cardiology H&P Patient info: Name: Shoshana Russo : 1975 PCP: Bandar Hahn MD PCP phone number: [phone] Date of Admission: 06/04/2023 ( Hospital Day 0 days ) Attending:Azul Mccoy MD ID: Shoshana Russo is a 47 y.o. male w/ PMHx of VT s/p 2x MARIALUISA to RCA and Lcx in 2019, HTN, HLD, T2DM presenting as transfer for STEMI. HPI: Patient has had history of prior VT with 2x MARIALUISA to RCA and Lcx in 2019. Had been on ASA + Plavix with Plavix discontinued ~a year ago. He endorses new back pain with radiation to b/l arms starting yesterday morning, progressing to chest pressure and JULES c/f VT. Initially presented to [place] ED. OSH ED Course: VSS on presentation, BP 130s/70s w/ HR 100s. EKG showed sinus tachycardia with ST-elevations in inferior leads, borderline elevations in V2- V4. Loaded with ASA + Plavix and started heparin gtt prior to [place] [facility] [place] Labs obtained but results not sent from OSH. Received [facility]. Per preliminary [facility] report, LHC showed proximal 100% disease in RCA, diffuse mild LMCA and LAD disease, and multiple discrete in-stent restenoses from prior Lcx stent. Received 2x MARIALUISA to mid and proximal RCA. Will possibly need staged PCI to Lcx pending renal function. Seen at bedside in good spirits. Feels tired but denies any current chest pain or dyspnea. Denies worsening MONTENEGRO or angina, although has had fatigue that he attributes to recently starting semaglutidefor diabetes and weight loss. Takes 45u long-acting insulin daily with ~20u short-acting at mealtime. No recent fevers/chills, nausea/vomiting, constipation, or diarrhea. Stopped metoprolol per PCP. ROS: as above Family History - CAD, HTN, HLD in father - T2DM in paternal grandparents Social History - ~10 pack-year smoking hx, quit Allergies: No Known Allergies Meds [START ON 06/05/2023] aspirin EC 81 mg Oral Daily [START ON 06/05/2023] clopidogreL 75 mg Oral Daily sodium chloride 0.9% 100 mL/hr (06/04/23 1754) Objective: Vitals Last value Range last 24 hrs Temperature Temp: 36.7 ??C (98.1 ??F) Temp: [36.7 ??C (98.1 ??F)] Heart Rate Heart Rate: 92 Heart Rate: [90-98] Blood Pressure BP: 145/90 BP: (137-147)/(85-99) Art Line BP BP (Arterial Line): -- MAP (NBP): [101 mmHg-110 mmHg] Respiratory Rate Resp: 18 Resp: [17-19] SpO2 SpO2: 97 % SpO2: [93 %-99 %] Oxygen Delivery Oxygen Therapy O2 Device: None (Room air) Reason for Oxygen: New documented hypoxia Intake/Output Summary (Last 24 hours) at 06/04/2023 1834 Last data filed at 06/04/2023 1750 Gross per 24 hour Intake 200 ml Output -- Net 200 ml Patient Vitals for the past 168 hrs: Weight 06/04/23 1500 117 kg (257 lb 15 oz) Admit wt: 117 kg Physical Exam Constitutional: Appearance: Normal appearance. HENT: Head: Normocephalic and atraumatic. Mouth/Throat: Mouth: Mucous membranes are moist. Cardiovascular: Rate and Rhythm: Regular rhythm. Tachycardia present. Heart sounds: No murmur heard. Pulmonary: Breath sounds: No wheezing, rhonchi or rales. Abdominal: General: Abdomen is flat. There is no distension. Palpations: Abdomen is soft. Tenderness: There is no abdominal tenderness. Musculoskeletal: Right lower leg: No edema. Left lower leg: No edema. Neurological: General: No focal deficit present. Mental Status: He is alert and oriented to person, place, and time. Labs: No results for input(s): WBC, HGB, HCT, PLATELET, MCV in the last 168 hours. No results for input(s): NA, CL, CO2, K, MAGNESIUM, PHOS, CALCIUM, BUN, CREATININE in the last 168 hours. LFTs No results for input(s): PROT, ALBUMIN, AST, ALT, ALKPHOS, BILITOT, BILIDIR in the last 168 hours. Coags No results for input(s): INR, PT, PTT, FIBRINOGEN, DDIMER in the last 168 hours. Invalid input(s): THROMBIN TIME Cardiac Enzymes No results for input(s): CK, TROPONINT, PROBNP in the last 168 hours. Endocrine No results for input(s): TSH, CORTISOL in the last 7068 hours. Invalid input(s): [id number] Recent Labs 06/04/23 1734 POCGLU 201* Heme No results for input(s): LDH, HAPTOGLOBIN, URICACID in the last 168 hours. ABG (Arterial Blood Gas) No results found for: PHART, PO2ART, UHI5KED, FJY0VYC Microbiology: Microbiology Results (Last 30 days) No results found for the last 720 hours. Imaging: No results found for this visit on 06/04/23. Medications Scheduled Meds: [START ON 06/05/2023] aspirin EC 81 mg Oral Daily [START ON 06/05/2023] clopidogreL 75 mg Oral Daily Continuous Infusions: sodium chloride 0.9% 100 mL/hr (06/04/23 1754) PRN Meds:. Assessment & Plan: Shoshana Russo is a 47 y.o. male w/ PMHx of VT s/p 2x MARIALUISA to RCA and Lcx in 2019, HTN, HLD, T2DM presenting as transfer for STEMI. 06/03: Recovering well from [facility] w/ PCI and placement of 2x MARIALUISA to RCA. Noted to have ISRs at prior Lcx stent from 2019; may need staged PCI for Lcx lesions pending renal function (possible CKD at baseline) given recent contrast load from angiography. Will defer ordering TTE. Otherwise will restart Plavix (d/c one year prior) and continue home ASA, atorvastatin, lisinopril (as tolerated by renal function). #inferior STEMI #HTN #HLD - s/p 2x MARIALUISA to RCA - consider starting - continue home ASA 81mg - start Plavix 75mg qd - continue home atorvastatin 80mg qd - continue home lisinopril 10mg qd - switch home omeprazole 20mg qd -> pantoprazole 40mg qd Cardiac Risk Stratification --HbA1c --TSH --Lipids #T2DM - takes 45u long-acting insulin at home, ~20u w/ meals - start 25u glargine - moderate sliding-scale insulin q4h #Routine Diet: Daily Healthy Menu Choices/Cardiac diet ([facility] [place] DVT Prophylaxis: SC heparin GI Prophylaxis: pantoprazole Code Status: Attempt Cardiopulmonary Resuscitation - Inpatient Dispo: Pending clinical course Mirna Gan MD Internal Medicine, PGY-2 Cardiology, M1-S1, #[id number] 06/04/23 6:34 PM Cardiovascular Medicine Attending I did not see this patient but was the supervising attending. Very nice angiographic and IVUS result from full metal jacket approach to extensive RCA disease. I agree with the management strategy of DAPT and aggressive secondary prevention pharmacology and lifestyle. Monitor renal function post contrast load and favor staged PCI of Cx perhaps as outpt to allow renal recovery. RCA dominant but significant myocardium supplied by this Cx. Will need TTE prior to discharge. Leo Finnegan MD [facility] pager [phone] documented in this encounter Miscellaneous Notes * Consult Note - Waleska Gross RN - 06/07/2023 10:30 AM EDT Shoshana Russo was seen today by Cardiac Rehabilitation for: STEMI Activity evaluation - Patient has been ambulating independently on the unit. I ambulated a few laps with him and his s.o.. He climbed 16 stairs. C/o muscle fatigue after completing the stairs, but denied any cardiac sx orlightheadedness. Educational packet regarding CAD, cardiac risk factors, and managing angina given to the patient. Reviewed managing angina /use of sl nitroglycerin. Mediterranean diet guidelines briefly reviewed. Given parameters for home exercise. Patient plans to start walking with his s.o. at least 5 days/week. I reviewed the home walk programwith them. Participation in an outpatient cardiac rehabilitation program at [facility] was discussed. Patient agrees to a referral to this program. The referral will be sent at discharge and the patient should be contacted by the Program within 1- 2 weeks from discharge. * Plan of Care - Jacqui Feliciano RN - 06/07/2023 4:26 AM EDT OUTCOME EVALUATION NOTE: OUTCOME SUMMARY: - A&O x4, RA, VSS, no complaints of pain or SOB - Pleasant and cooperative - PIVs intact and patent - at bedside, participating in care - 1945 Showered per order ok, no events - 2155 pt c/o headache, requested tylenol, checked BP WNL 130/71, 1 time dose 650 mg ordered and administered, will continue to monitor - 2315 pt desat while sleeping, applied 2L NC. - 2320 glucose at 98, pt states this is very abnormal for him to be that low, will recheck in 1 hour - 0030 repeat glucose 122, feels more comfortable with that but requested a snack just in case. Snack provided, will continue to monitor. - 0415 glucose 140 - Pt intermittently slept throughout the night, did require 2L NC while sleeping to prevent drop insaturation. Per patient, he is still in process of sleep studies. PLAN MOVING FORWARD: Monitor cardiac status D/c planning CPG GOAL OUTCOME EVALUATION: Ongoing Problem: Adult Inpatient Plan of Care Goal: [...] Outcome: Ongoing (Interventions Implemented as Appropriate) Problem: Arrhythmia/Dysrhythmia (Cardiac Catheterization) Goal: Stable Heart Rate and Rhythm Outcome: Ongoing (Interventions Implemented as Appropriate) Problem: Bleeding (Cardiac Catheterization) Goal: Absence of Bleeding Outcome: Ongoing (Interventions Implemented as Appropriate) Problem: Contrast-Induced Injury Risk (Cardiac Catheterization) Goal: Absence of Contrast-Induced Injury Outcome: Ongoing (Interventions Implemented as Appropriate) Problem: Embolism (Cardiac Catheterization) Goal: Absence of Embolism Signs and Symptoms Outcome: Ongoing (Interventions Implemented as Appropriate) Problem: Ongoing Anesthesia/Sedation Effects (Cardiac Catheterization) Goal: Anesthesia/Sedation Recovery Outcome: Ongoing (Interventions Implemented as Appropriate) Problem: Pain (Cardiac Catheterization) Goal: Acceptable Pain Control Outcome: Ongoing (Interventions Implemented as Appropriate) Problem: Vascular Access Protection (Cardiac Catheterization) Goal: Absence of Vascular Access Complication Outcome: Ongoing (Interventions Implemented as Appropriate) * Plan of Care - Janice Manzano RN - 06/06/2023 6:38 AM EDT Patient required 1L O2 via NC at night to saturate 90%. Last BM 06/02, on bowel care meds. Complained of headache this AM, 04/29, tylenol administered. Problem: Adult Inpatient Plan of Care Goal: [...] Implemented as Appropriate) * Initial Assessments - Price Buckley RN - 06/05/2023 1:32 PM EDT Office of Care Management Initial Assessment Medical record reviewed. Plan of care and patient status discussed with direct care Registered Nurse and/or Care Team in multidisciplinary rounds. Reason for Hospitalization: STEMI Present on Admission: STEMI (ST elevation myocardial infarction) Hospitalizations Within the Past 30 Days: no previous admission in last 30 days Patient receiving hospital care under Inpatient status. Admission order reviewed. Health/Prescription Coverage: Primary Insurance: [facility] Payor: [facility] / Plan: [facility] / Product Type: *No Product type* / Secondary Insurance: N/A Prescription Coverage: Yes Preferred Pharmacy: [facility] [address] [place] [address] [place] [address] [address] [facility] [id number] Advance Care Planning: Attempt Cardiopulmonary Resuscitation - Inpatient <no information> -Advanced Directive: No, declines Current Functional Ability: Assistive Person Functional Status Prior to Admission: Independent Home Environment: Others in the home: alone. Current Living Arrangements: home/apartment/condo. Current DME: none [address] [facility] [address] [facility] [address] Social & Family Supports: Extended Emergency Contact Information Primary Emergency Contact: Celso Russo Relation: Father Current Care Provided by: self Transportation: no concerns Transportation Anticipated: family or friend will provide Assessment: Patient with no apparent RNCM/SW needs at this time. No housing, transportation, insurance, resources concerns identified at this time. Supports in place to achieve a safe post-hospital transition. No identified barriers to accessing necessary care and/or follow-up after discharge. Plan: Patient to d/c to home via family when medically ready. Registered Nurse [employer] / Art History Instructor will continue to follow patient???s progress and remain available if situation changes for coordination of care, psychosocial support and/or discharge planning. Office of Care Management Price Buckley RN Case Manager Pgr: [phone] * Consult Note - Ruchi Hurtado APRN - 06/05/2023 11:22 AM EDT Diabetes Management Team Inpatient Consult Date of Consultation: 06/05/2023 Consult Requested by: Cardiology Reason for Consultation: Shoshana Russo is a 47 y.o. male with PMH significant for T2DM who was admitted on 06/04/2023 currently being treated for STEMI. We are being consulted to assist with diabetes management and to provide a review of residential diabetes care. Diabetes History: Shoshana Russo has had diabetes about 20 years ago (2003). Current outpatient diabetes regimen: Diabetes Provider: PCP Medications: Farxiga 10 mg daily, Levemir 45 units at bedtime, Humalog 20-50 units three times daily with melas (based on food) Monitoring is done 2 times a day (before dinner and bed) Most recent HA1c was done on 06/05/23 and was 11.2%, suggesting an average glucose of 275 mg/dL. Typical diet is: Patient reports he doesn't eat much for breakfast , has a small lunch , and eats a good size supper. Typical exercise regimen is sedentary Trouble with hypoglycemia no Current Weight 119.4 kg Diabetes Complications Status: Eyes: Last eye exam was 5 months ago, patient reports getting laser surgery Kidneys: GFR on 06/05/23 was 38. Sensory: No Autonomic: None Cardiovascular : STEMI Current Hospital Diabetes Care: Medications: Glargine 25 units Lispro moderate correction scale q 4 hrs Monitoring: q 4 hrs Diet: CHO count level 2 ROS: deferred PMH Past Medical History: Diagnosis Date Diabetes Hypertension Current Hospital Medications: gabapentin 200 mg Oral Nightly furosemide 40 mg Intravenous Once aspirin EC 81 mg Oral Daily clopidogreL 75 mg Oral Daily atorvastatin 80 mg Oral QPM pantoprazole EC 40 mg Oral Daily sodium chloride 0.9 % (flush) 5 mL Intravenous BID insulin lispro 1-6 Units Subcutaneous Q4H ISAMAR insulin glargine (Lantus;Semglee) (100 unit/mL) subcutaneous injection 25 Units Subcutaneous Daily heparin (porcine) 5,000 Units Subcutaneous Q8H ISAMAR melatonin 6 mg Oral Nightly PRN: sodium chloride 0.9 % (flush), lidocaine, nitroGLYcerin, glucose 40% oral geL OR dextrose OR glucagon Allergy: No Known Allergies Social history: Social History Tobacco Use Smoking status: Former Packs/day: 1.00 Years: 10.00 Additional pack years: 0.00 Total pack years: 10.00 Types: Cigarettes Smokeless tobacco: Never Substance Use Topics Alcohol use: Yes Alcohol/week: 7.0 standard drinks of alcohol Types: 7 Cans of beer per week Drug use: Never Family history: Family History Problem Relation Age of Onset Coronary Artery Disease Father 62 Hypertension Father Hyperlipidemia Father Diabetes Maternal Grandfather Diabetes Paternal Grandfather Vitals Last value Range last 24 hrs Temperature Temp: 36.5 ??C (97.7 ??F) Temp: [36.5 ??C (97.7 ??F)-37.1 ??C (98.7 ??F)] Heart Rate Heart Rate: 95 Heart Rate: [86-98] Blood Pressure BP: 121/69 BP: (121-162)/(69-99) Respiratory Rate Resp: 16 Resp: [9-19] SpO2 SpO2: 98 % SpO2: [93 %-99 %] Physical Exam: Gen: talking in clear sentences. Laying in bed comfortably Lungs: CTAB, breathing non-labored. No wheezes or rhonchi. Good aeration Abd: Soft, non-distended, non-tender x4 quadrants, +bs SKIN: No open areas or redness to both feet Neuro: Moving all extremities. Grossly non-focal Labs: Lab Results Component Value Date BUN 30 (H) 06/05/2023 CREATININE 2.16 (H) 06/05/2023 GLUCOSE 174 06/05/2023 GLUCFASTING 181 (H) 10/14/2018 ESTGFR 38 (L) 06/05/2023 Lab Results Component Value Date HA1C 11.2 (H) 06/05/2023 No results found for: MICROALBUR Lab Results Component Value Date CHLPL 128 06/05/2023 Lab Results Component Value Date HDL 25 06/05/2023 Lab Results Component Value Date LDLCHOL Not Calculated 06/05/2023 Lab Results Component Value Date TRIG 405 06/05/2023 Lab Results Component Value Date CHOLHDL 4.9 10/13/2018 Assessment: Patient is a 47 y.o. years old male with PMH significant for DM (Last A1C of 11.2%) who was admitted on 06/04/2023 for STEMI. Diabetes uncontrolled and currently complicated by unknown insulin requirements. Currently with variability of blood glucose levels while hospitalized requiring adjustment of insulin regimen and DM medications. TPN/TF:none Weight based considerations: Calculated TDD would be: 83 Glargine dosin Carb ratio: 6 Correction Scale:18.1 Recommend starting at weight based dosing since home dosing is quite variable. Added meal and snackinsulin. Plan: 1. Lantus 25 units qd 2. Lispro moderate correction scale for BG>140 3. Lispro 1unit: 10 gm carb ratio for each meal and snack Diabetes Discharge Planning Medications - Outpatient treatment regimen recommendations pending based on the hospital course. Monitoring - continue BG 4 times daily, ac & hs Diet - low fat/low carb diet Exercise - weight-bearing exercise 30 min/day, as tolerated Thank you for allowing us to provide care for your patient Ruchi Hurtado APRN [facility] [place] Diabetes Management Pager [phone] minutes of this 80 minute visit was spent with the patient in counseling on diabetes and treatment plan, reviewing all glucose and insulin data as well as relevant laboratory results with the patient, and coordination of care on the inpatient unit * Plan of Care - Janice Manzano RN - 06/05/2023 6:47 AM EDT New patient orientation on orders and unit routines offered. Air in TR Band successfully removed at10PM and site cleaned and dressed per protocol. Pt and family education on site and arm precautionsoffered, both verbalized understanding. Problem: Adult Inpatient Plan of Care Goal: [...] as Appropriate) * Plan of Care - Codie Jimenez RN - 06/04/2023 6:24 PM EDT Problem: Arrhythmia/Dysrhythmia (Cardiac Catheterization) Goal: Stable Heart Rate and Rhythm Outcome: Ongoing (Interventions Implemented as Appropriate) Problem: Adult Inpatient Plan of Care Goal: Readiness for Transition of Care 06/04/20231823 by Codie Jimenez, RN Outcome: Ongoing (Interventions Implemented as Appropriate) 06/04/20231823 by Codie Jimenez, RN Outcome: Ongoing (Interventions Implemented as Appropriate) Problem: Bleeding (Cardiac Catheterization) Goal: Absence of Bleeding Outcome: Ongoing (Interventions Implemented as Appropriate) Problem: Contrast-Induced Injury Risk (Cardiac Catheterization) Goal: Absence of Contrast-Induced Injury Outcome: Ongoing (Interventions Implemented as Appropriate) Problem: Embolism (Cardiac Catheterization) Goal: Absence of Embolism Signs and Symptoms Outcome: Ongoing (Interventions Implemented as Appropriate) Problem: Ongoing Anesthesia/Sedation Effects (Cardiac Catheterization) Goal: Anesthesia/Sedation Recovery Outcome: Ongoing (Interventions Implemented as Appropriate) Problem: Pain (Cardiac Catheterization) Goal: Acceptable Pain Control Outcome: Ongoing (Interventions Implemented as Appropriate) Problem: Vascular Access Protection (Cardiac Catheterization) Goal: Absence of Vascular Access Complication Outcome: Ongoing (Interventions Implemented as Appropriate) * Brief Op Note - Olga Chavarria PA - 06/04/2023 5:11 PM EDT Preliminary Cardiac Catheterization Procedure Note: Patient Name: Shoshana Russo : [id number] MR#: [id number] Case Date: 06/04/2023 Nursing Project Coordinator: Surgeon(s) and Role: * Azul Rowley MD - Primary * Olga Chavarria PA - Physician Zoology Teacher Preoperative diagnosis: STEMI Postoperative diagnosis: * STEMI * Procedure(s) performed: Right radial access Left heart catheterization Coronary angiogram Coronary stent insertion IVUS - coronary Access: RRA provided good support, 6 Fr slender A time-out was conducted prior to the start of the procedure to verify the correct patient and procedure, procedure location, and all relevant critical information. Preliminary findings: Right dominant circulation LVEDP 17 mmHg RCA: proximal 100% occlusion, with L to R collaterals LMCA: entire vessel mild diffuse LAD: entire vessel mild diffuse LCX: proximal to mid vessel 80% multiple discrete ISR from previously placed stent (2019) JRA 4 guide, PCI to RCA with 2.75 mm x 38 mm JOE frontier MARIALUISA to mid vessel post dilated with 3.0 x 12 mm NC EUPHORA; 3.0 x 18 mm JOE frontier MARIALUISA to proximal vessel; post-dilated with 3.5 x 15 mm NC EUPHORA 100 ml IVF NS for 6 hours Recommendations: aspirin 81 mg lifelong, plavix 75 mg for 12 months minimum Consider staged PCI to ISR of LCX during this admission, after kidney's recover, monitor for DONAL given high Cr at baseline The patient tolerated the procedures smoothly and was transferred from the cardiac catheterization lab to the next level of care in stable condition. No evident early complications. Full report to follow. GLENIS Puentes documented in this encounter Plan of Treatment Upcoming Encounters Date Type Department Care Team (Late st Contact Info) Description 01/31/2024 9:30 AM EST Office Visit [place] [phone] [facility] [address] 02/06/2024 1:00 PM EST Office Visit Cardiology at [address] [phone] [facility] [place] [address] 04/25/2024 10:30 AM EST Office Visit Sleep Center at [address] [phone] Maria De Jesus Lange APRN [facility] [place] [address] Scheduled Orders Name Type Priority Associated Diagnoses Orde r Schedule EKG [address] elevation myocardial infarction involving right coronary artery One Time for 1 Occurrences starting 06/04/2023 until 06/04/2023 Scheduled Referrals Name Type Priority Associated Diagnoses Orde r Schedule Referral to Cardiac Rehab Outpatient Referral Routine ST elevation myocardial infarction involving right coronary artery Ordered: 06/07/2023 documented as of this encounter Procedures Procedure Name Priority Date/Time Associated Diagnosis Comments POCT GLUCOSE Routine 06/07/2023 11:33 AM EDT POCT GLUCOSE Routine 06/07/2023 7:36 AM EDT HEMOGRAM Routine 06/07/2023 5:40 AM EDT DIFFERENTIAL, AUTOMATED Routine 06/07/19 24 5:40 AM EDT CBC (WITH DIFF) Routine 06/07/2023 5:40 AM EDT MAGNESIUM Routine 06/07/2023 5:40 AM EDT BASIC METABOLIC PANEL Routine 06/07/2023 5:40 AM EDT POCT GLUCOSE Routine 06/07/2023 4:14 AM EDT POCT GLUCOSE Routine 06/07/2023 12:28 AM EDT POCT GLUCOSE Routine 06/06/2023 11:20 PM EDT POCT GLUCOSE Routine 06/06/2023 8:07 PM EDT POCT GLUCOSE Routine 06/06/2023 3:05 PM EDT POCT GLUCOSE Routine 06/06/2023 11:00 AM EDT POCT GLUCOSE Routine 06/06/2023 7:29 AM EDT HEMOGRAM Routine 06/06/2023 3:57 AM EDT DIFFERENTIAL, AUTOMATED Routine 06/06/19 3:57 AM EDT CBC (WITH DIFF) Routine 06/06/2023 3:57 AM EDT MAGNESIUM Routine 06/06/2023 3:57 AM EDT BASIC METABOLIC PANEL Routine 06/06/2023 3:57 AM EDT POCT GLUCOSE Routine 06/06/2023 3:04 AM EDT POCT GLUCOSE Routine 06/05/2023 11:05 PM EDT POCT GLUCOSE Routine 06/05/2023 7:44 PM EDT POCT GLUCOSE Routine 06/05/2023 3:28 PM EDT POCT GLUCOSE Routine 06/05/2023 1:36 PM EDT POCT GLUCOSE Routine 06/05/2023 11:36 AM EDT ECHO COMPLETE W CONTRAST Routine 06/05/2023 11:[address] elevation myocardial infarction involving right coronary artery POCT GLUCOSE Routine 06/05/2023 7:54 AM EDT POCT GLUCOSE Routine 06/05/2023 3:09 AM EDT HEMOGRAM Routine 06/05/2023 3:04 AM EDT DIFFERENTIAL, AUTOMATED Routine 06/05/19 3:04 AM EDT CBC (WITH DIFF) Routine 06/05/2023 3:04 AM EDT MAGNESIUM Routine 06/05/2023 3:04 AM EDT LDL CHOLESTEROL, DIRECT Routine 06/05/19 3:04 AM EDT HEMOGLOBIN A1C Routine 06/05/2023 3:04 AM EDT LIPID PANEL (REFLEX DIRECT LDL) Routine 06/05/2023 3:04 AM EDT BASIC METABOLIC PANEL Routine 06/05/2023 3:04 AM EDT POCT GLUCOSE Routine 06/04/2023 11:04 PM EDT POCT GLUCOSE Routine 06/04/2023 7:52 PM EDT EKG 12-LEAD Routine 06/04/2023 7:[address] elevation myocardial infarction involving right coronary artery SCAN, PERIPHERAL BLOOD Routine 6:57 PM EDT HEMOGRAM Routine 06/04/2023 6:57 PM EDT DIFFERENTIAL, AUTOMATED Routine 06/04/19 6:57 PM EDT CBC (WITH DIFF) Routine 06/04/2023 6:57 PM EDT TSH Routine 06/04/2023 6:57 PM EDT MAGNESIUM Routine 06/04/2023 6:57 PM EDT BASIC METABOLIC PANEL Routine 06/04/2023 6:57 PM EDT POCT GLUCOSE Routine 06/04/2023 5:34 PM EDT CARDIAC CATHETERIZATION Routine 06/04/19 5:20 PM EDT EKG 12-LEAD Routine 06/04/2023 5:[address] elevation myocardial infarction involving right coronary artery documented in this encounter Results * POCT Glucose (06/07/2023 11:33 AM EDT) Glucose, POC 196 65 - 199 mg/dL [facility] Comment: Supplemental ranges: <140 mg/dL before meals <180 mg/dL all other times of the day Blood 06/07/2023 11:3 3 AM EDT 06/07/2023 11:33 AM EDT Jonathan Rojas MD POINT OF CARE T EST ORDERABLES [facility] [place] [address] * POCT Glucose (06/07/2023 7:36 AM EDT) Glucose, POC 146 65 - 199 mg/dL [facility] Comment: Supplemental ranges: <140 mg/dL before meals <180 mg/dL all other times of the day Blood 06/07/2023 7:36 AM EDT 06/07/2023 7:36 AM EDT Jonathan Rojas MD POINT OF CARE T EST ORDERABLES [facility] [place] [address] * (ABNORMAL) Differential, Automated (06/07/2023 5:40 AM EDT) Neutrophil % 74.2 % [facility] Neutrophil Absolute 6.39(H) 1.70 - 6.10 x10(3)/mc L [facility] Lymph % 16.6 % [facility] Lymphocytes Abs 1.4 0.9 - 3.2 x10(3)/ L [facility] Monocyte % 6.7 % [facility] Monocyte Abs 0.6 0.3 - 0.9 x10(3)/ L [facility] Eos % 1.5 % [facility] Eosinophils Abs 0.1 0.0 - 0.4 x10(3)/ L [facility] Basophil % 0.5 % [facility] Baso Absolute 0.0 0.0 - 0.1 x10(3)/mc L [facility] Immature Gran % 0.50 % [facility] Comment: Immature granulocytes(IG's)percentage and absolute count will include metamyelocytes, myelocytes, and promyelocytes. Blood smears from CBCs yielding IG's will be scanned manually for concordance. If this scan disagrees with the automated IG or if promyelocytes are noted, a manual differential will be performed. Immature Gran Absolute 0.04 0.00 - 0.04 x10(3)/mc L [facility] Blood 06/07/2023 5:40 AM EDT 06/07/2023 5:48 AM EDT Narrative Resulting Agency Comment Spec In Lab Mirna Gan MD HEMATOLOGY ORDERABLE S Performing Organization Address City/State/[facility] Co de Phone Number [facility] [place] [address] * (ABNORMAL) Hemogram (06/07/2023 5:40 AM EDT) White Blood Cell 8.6 4.0 - 9.5 x10(3)/mc L [facility] Red Blood Cell 4.77 4.58 - 5.54 x10(6)/ L [facility] Hemoglobin 9.7(L) 13.7 - 16.5 g/dL [facility] Hematocrit 33.7(L) 40.5 - 48.5 % [facility] Mean Cell Volume 70.6(L) 82.9 - 93.1 fL [facility] Mean Cell Hemoglobin 20.3(L) 27.5 - 32.1 pg [facility] Mean Cell Hemoglobin Concentration 28.8(L) 32.0 - 35.7 g/dL [facility] Platelet 237 145 - 357 x10(3)/mc L [facility] RDW Standard Deviation 45.1(H) 36.0 - 45.0 fL [facility] RDW coefficient of variation 18.2(H) 11.4 - 13.8 % [facility] Mean Platelet Volume 10.9 7.6 - 12.9 fL [facility] NRBC% auto 0.0 % [facility] NRBC Absolute 0.000 0.000 - 0.000 x10(3)/[facility] Blood 06/07/2023 5:40 AM EDT 06/07/2023 5:48 AM EDT Narrative Resulting Agency Comment Spec In Lab Mirna Gan MD HEMATOLOGY ORDERABLE S [facility] [place] [address] * Magnesium (06/07/2023 5:40 AM EDT) Pathologist [facility] Magnesium 0.98 0.69 - 1.07 mmol/L [facility] Blood 06/07/2023 5:40 AM EDT 06/07/2023 5:48 AM EDT Narrative Resulting Agency Comment Spec In Lab Azul Mccoy MD CHEMISTRY ORDERABLE S [facility] [place] [address] * (ABNORMAL) Basic Metabolic Panel (non-fasting) (06/07/2023 5:40 AM EDT) Pathologist [facility] Glucose 147 65 - 199 mg/dL [facility] Comment:Diabetes: >=200 mg/d L plus symptoms Blood Urea Nitrogen 34(H) 10 - 20 mg/dL [facility] Creatinine 2.49(H) 0.80 - 1.50 mg/dL [facility] Sodium 136 135 - 145 mmol/L [facility] Potassium 4.7 3.5 - 5.0 mmol/L [facility] Comment: Please note: ??Patients with WBC >100,000 may have falsely elevated Potassium levels. ??For accurate Potassium quantification in these patients send serum separator tube (gold top) for subsequent determinations. ??Contact the Clinical Chemistry Laboratory if there are any questions. Chloride 103 98 - 107 mmol/L [facility] Carbon Dioxide 21(L) 22 - 31 mmol/L [facility] Anion Gap 12 5 - 15 mmol/L [facility] Calcium 8.8 8.5 - 10.5 mg/dL [facility] Est Glomerular Filtration Rate 32(L) >=60 mL/min/1. 73 m?? [facility] Comment: This patient's estimated GFR [...] and symptoms in addition to eGFR. Blood 06/07/2023 5:40 AM EDT 06/07/2023 5:48 AM EDT Narrative Resulting Agency Comment Spec In Lab Azul Mccoy MD CHEMISTRY ORDERABLE S Performing Organization Address [facility] Co de Phone Number [facility] [place] [address] * POCT Glucose (06/07/2023 4:14 AM EDT) Glucose, POC 140 65 - 199 mg/dL [facility] Comment: Supplemental ranges: <140 mg/dL before meals <180 mg/dL all other times of the day Blood 06/07/2023 4:14 AM EDT 06/07/2023 4:14 AM EDT Jonathan Rojas MD POINT OF CARE T EST ORDERABLES Performing Organization Address City/[facility]/ZIP Co de Phone Number [facility] [place] [address] * POCT Glucose (06/07/2023 12:28 AM EDT) Glucose, POC 122 65 - 199 mg/dL [facility] Comment: Supplemental ranges: <140 mg/dL before meals <180 mg/dL all other times of the day Blood 06/07/2023 12:2 8 AM EDT 06/07/2023 12:28 AM EDT Jonathan Rojas MD POINT OF CARE T EST ORDERABLES Performing Organization Address City/[facility]/ZIP Co de Phone Number [facility] [place] [address] * POCT Glucose (06/06/2023 11:20 PM EDT) Glucose, POC 98 65 - 199 mg/dL [facility] Comment: Supplemental ranges: <140 mg/dL before meals <180 mg/dL all other times of the day Blood 06/06/2023 11:2 0 PM EDT 06/06/2023 11:20 PM EDT Jonathan Rojas MD POINT OF CARE T EST ORDERABLES Performing Organization Address City/[facility]/ZIP Co de Phone Number [facility] [place] [address] * POCT Glucose (06/06/2023 8:07 PM EDT) Glucose, POC 176 65 - 199 mg/dL [facility] Comment: Supplemental ranges: <140 mg/dL before meals <180 mg/dL all other times of the day Blood 06/06/2023 8:07 PM EDT 06/06/2023 8:07 PM EDT Jonathan Rojas MD POINT OF CARE T EST ORDERABLES Performing Organization Address City/[facility]/ZIP Co de Phone Number [facility] [place] [address] * (ABNORMAL) POCT Glucose (06/06/2023 3:05 PM EDT) Glucose, POC 233(H) 65 - 199 mg/dL [facility] Comment: Supplemental ranges: <140 mg/dL before meals <180 mg/dL all other times of the day Blood 06/06/2023 3:05 PM EDT 06/06/2023 3:05 PM EDT Jonathan Rojas MD POINT OF CARE T EST ORDERABLES Performing Organization Address [facility] Co de Phone Number [facility] [place] [address] * POCT Glucose (06/06/2023 11:00 AM EDT) Glucose, POC 183 65 - 199 mg/dL [facility] Comment: Supplemental ranges: <140 mg/dL before meals <180 mg/dL all other times of the day Blood 06/06/2023 11:0 0 AM EDT 06/06/2023 11:00 AM EDT Jonathan Rojas MD POINT OF CARE T EST ORDERABLES Performing Organization Address [facility] Co de Phone Number [facility] [place] [address] * POCT Glucose (06/06/2023 7:29 AM EDT) Glucose, POC 184 65 - 199 mg/dL [facility] Comment: Supplemental ranges: <140 mg/dL before meals <180 mg/dL all other times of the day Blood 06/06/2023 7:29 AM EDT 06/06/2023 7:29 AM EDT Jonathan Rojas MD POINT OF CARE T EST ORDERABLES Performing Organization Address City/[facility] Co de Phone Number [facility] [place] [address] * (ABNORMAL) Differential, Automated (06/06/2023 3:57 AM EDT) Neutrophil % 76.6 % [facility] Neutrophil Absolute 8.11(H) 1.70 - 6.10 x10(3)/mc L [facility] Lymph % 14.5 % [facility] Lymphocytes Abs 1.5 0.9 - 3.2 x10(3)/mc L [facility] Monocyte % 6.5 % [facility] Monocyte Abs 0.7 0.3 - 0.9 x10(3)/[facility] Eos % 1.3 % [facility] Eosinophils Abs 0.1 0.0 - 0.4 x10(3)/[facility] Basophil % 0.6 % [facility] Baso Absolute 0.1 0.0 - 0.1 x10(3)/[facility] Immature Gran % 0.50 % [facility] Comment: Immature granulocytes(IG's)percentage and absolute count will include metamyelocytes, myelocytes, and promyelocytes. Blood smears from CBCs yielding IG's will be scanned manually for concordance. If this scan disagrees with the automated IG or if promyelocytes are noted, a manual differential will be performed. Immature Gran Absolute 0.05(H) 0.00 - 0.04 x10(3)/[facility] Blood 06/06/2023 3:57 AM EDT 06/06/2023 4:08 AM EDT Narrative Resulting Agency Comment Spec In Lab Mirna Gan MD HEMATOLOGY ORDERABLE S [facility] [place] [address] * (ABNORMAL) Hemogram (06/06/2023 3:57 AM EDT) White Blood Cell 10.6(H) 4.0 - 9.5 x10(3)/[facility] Red Blood Cell 4.87 4.58 - 5.54 x10(6)/[facility] Hemoglobin 10.2(L) 13.7 - 16.5 g/dL [facility] Hematocrit 34.1(L) 40.5 - 48.5 % [facility] Mean Cell Volume 70.0(L) 82.9 - 93.1 fL [facility] Mean Cell Hemoglobin 20.9(L) 27.5 - 32.1 pg [facility] Mean Cell Hemoglobin Concentration 29.9(L) 32.0 - 35.7 g/dL [facility] Platelet 254 145 - 357 x10(3)/mc L [facility] RDW Standard Deviation 45.3(H) 36.0 - 45.0 fL [facility] RDW coefficient of variation 18.4(H) 11.4 - 13.8 % [facility] Mean Platelet Volume 10.9 7.6 - 12.9 fL [facility] NRBC% auto 0.0 % [facility] NRBC Absolute 0.000 0.000 - 0.000 x10(3)/mc L [facility] Blood 06/06/2023 3:57 AM EDT 06/06/2023 4:08 AM EDT Narrative Resulting Agency Comment Spec In Lab Mirna Gan MD HEMATOLOGY ORDERABLE S Performing Organization Address City/[facility]/ZIP Co de Phone Number [facility] [place] [address] * Magnesium (06/06/2023 3:57 AM EDT) Pathologist [facility] Magnesium 0.91 0.69 - 1.07 mmol/L [facility] Blood 06/06/2023 3:57 AM EDT 06/06/2023 4:08 AM EDT Narrative Resulting Agency Comment Spec In Lab Azul Mccoy MD CHEMISTRY ORDERABLE S [facility] [place] [address] * (ABNORMAL) Basic Metabolic Panel (non-fasting) (06/06/2023 3:57 AM EDT) Glucose 193 65 - 199 mg/dL [facility] Comment:Diabetes: >=200 mg/d L plus symptoms Blood Urea Nitrogen 32(H) 10 - 20 mg/dL [facility] Creatinine 2.57(H) 0.80 - 1.50 mg/dL [facility] Sodium 136 135 - 145 mmol/L [facility] Potassium 5.1(H) 3.5 - 5.0 mmol/L [facility] Comment: Please note: ??Patients with WBC >100,000 may have falsely elevated Potassium levels. ??For accurate Potassium quantification in these patients send serum separator tube (gold top) for subsequent determinations. ??Contact the Clinical Chemistry Laboratory if there are any questions. Chloride 104 98 - 107 mmol/L [facility] Carbon Dioxide 22 22 - 31 mmol/L [facility] Anion Gap 10 5 - 15 mmol/L [facility] Calcium 8.9 8.5 - 10.5 mg/dL [facility] Est Glomerular Filtration Rate 30(L) >=60 mL/min/1. 73 m?? [facility] Comment: This patient's estimated GFR [...] and symptoms in addition to eGFR. Blood 06/06/2023 3:57 AM EDT 06/06/2023 4:08 AM EDT Narrative Resulting Agency Comment Spec In Lab Azul Mccoy MD CHEMISTRY ORDERABLE S [facility] [place] [address] * POCT Glucose (06/06/2023 3:04 AM EDT) Glucose, POC 159 65 - 199 mg/dL [facility] Comment: Supplemental ranges: <140 mg/dL before meals <180 mg/dL all other times of the day Blood 06/06/2023 3:04 AM EDT 06/06/2023 3:04 AM EDT Jonathan Rojas MD POINT OF CARE T EST ORDERABLES [facility] [place] [address] * POCT Glucose (06/05/2023 11:05 PM EDT) Glucose, POC 136 65 - 199 mg/dL [facility] Comment: Supplemental ranges: <140 mg/dL before meals <180 mg/dL all other times of the day Blood 06/05/2023 11:0 5 PM EDT 06/05/2023 11:05 PM EDT Jonathan Rojas MD POINT OF CARE T EST ORDERABLES Performing Organization Address City/[facility]/ZIP Co de Phone Number [facility] [place] [address] * POCT Glucose (06/05/2023 7:44 PM EDT) Glucose, POC 156 65 - 199 mg/dL [facility] Comment: Supplemental ranges: <140 mg/dL before meals <180 mg/dL all other times of the day Blood 06/05/2023 7:44 PM EDT 06/05/2023 7:44 PM EDT Jonathan Rojas MD POINT OF CARE T EST ORDERABLES [facility] [place] [address] * POCT Glucose (06/05/2023 3:28 PM EDT) Glucose, POC 191 65 - 199 mg/dL [facility] Comment: Supplemental ranges: <140 mg/dL before meals <180 mg/dL all other times of the day Blood 06/05/2023 3:28 PM EDT 06/05/2023 3:28 PM EDT Jonathan Rojas MD POINT OF CARE T EST ORDERABLES [facility] [place] [address] * (ABNORMAL) POCT Glucose (06/05/2023 1:36 PM EDT) Glucose, POC 230(H) 65 - 199 mg/dL [facility] Comment: Supplemental ranges: <140 mg/dL before meals <180 mg/dL all other times of the day Blood 06/05/2023 1:36 PM EDT 06/05/2023 1:36 PM EDT Jonathan Rojas MD POINT OF CARE T EST ORDERABLES Performing Organization Address [facility] Co de Phone Number [facility] [place] [address] * (ABNORMAL) POCT Glucose (06/05/2023 11:36 AM EDT) Glucose, POC 256(H) 65 - 199 mg/dL [facility] Comment: Supplemental ranges: <140 mg/dL before meals <180 mg/dL all other times of the day Blood 06/05/2023 11:3 6 AM EDT 06/05/2023 11:36 AM EDT Jonathan Rojas MD POINT OF CARE T EST ORDERABLES Performing Organization Address City/[facility] Co de Phone Number [facility] [place] [address] * ECHO COMPLETE W CONTRAST (06/05/2023 11:29 AM EDT) EF 51 HEART[facility] SYSTEM Anatomical Region Laterality Modality Cardiac Other 06/05/2023 10:0 5 AM EDT Narrative 06/05/2023 11:56 AM EDT [address] [place] [address] ? Echocardiogram Report Name: SHOSHANA RUSSO ?Study Date: 06/05/2023 10:05 AMBP: 121/69 mmHg ? Patient Location: [id number] A : 1975 ? Height: 177 cm ? Account: [id number] Age: 47 yrs ? Weight: 119 kg Gender: Male ?BSA: 2.3 m2 Ordering Physician: JONATHAN ROJAS Referring Physician: OANH DUMAS Performed By: Phuong Cornell Reason For Study: ST elevation myocardial infarction involving right coronary artery Exam Location: [facility]. Interpretation Summary Left ventricular systolic function is [...] and inferior WMA, but RV was normal. Procedure Complete-06320. Image enhancement Optison was used for left ventricular opacification. Suboptimal quality. There is normal sinus rhythm. Left Ventricle Left ventricle is of normal size. Moderately increased thickness of the basal septum with no obstruction to LV outflow. There is no ventricular septal defect. Left ventricular systolic function is mildly reduced. The left ventricular ejection fraction is 51% by Rincon's biplane. There are segmental wall motion abnormalities. Right Ventricle Right ventricle is moderately dilated. Right ventricular systolic function is moderately decreased. Left Atrium The left atrium is normal. The interatrial septum is not well visualized. Right Atrium The right atrium is mildly dilated. Aortic Valve The aortic valve is structurally and functionally normal. The aortic valve is tricuspid. There is no aortic stenosis. There is no aortic regurgitation. Mitral Valve The mitral valve is structurally and functionally normal. There is trace mitral regurgitation. Tricuspid Valve The tricuspid valve is structurally normal. There is mild to moderate tricuspid regurgitation. Pulmonic Valve The pulmonic valve appears to be structurally and functionally normal. There is trace pulmonic valve regurgitation. Great Arteries The diameter at the level of the sinuses of Valsalva is 3.3 cm. The maximum diameter of the proximal ascending aorta is 3.2 cm. The pulmonary artery is not well visualized. Venous Inferior vena cava is not well visualized. Pericardium/Pleural There is no pericardial effusion. A pericardial fat pad is present. Hemodynamics The peak right ventricular systolic pressure is 16 mmHg. Plus RA presssure. Left ventricular diastolic function is abnormal. Ejection Fraction ?2D Measurements ? Volumes EF(MOD-bp): 51.0 % ?IVSd: 1.5 cm ? LAV(MOD- bp) Indexed: ?LVIDd: 4.2 cm ?LVIDs: 3.5 cm ?23.4 ml/m2 ?LVPWd: 0.98 cm ? RA A4Cs_phl: 19.4 cm2 ? EDV(MOD-bp) Indexed: ?RWT: 0.47 {ratio} ?LV mass(C)d: 189.7 grams ? 52.5 ml/m2 ?LV mass(C)dI: 81.2 grams/m2 ?ESV(MOD- bp) Indexed: ?Ao root diam: 3.3 cm ? 25.7 ml/m2 ?Ao root diam index: 1.4 ?SV(LVOT): 77.0 ml ?asc Aorta Diam: 3.2 cm ?LVOT diam: 2.3 cm ?SI(LVOT): 32.9 ml/m2 ?TAPSE_phl: 1.4 cm Doppler LV V1 VTI: 18.5 cm MV E max jeff: 73.7 cm/sec MV A max jeff: 61.4 cm/sec MV E/A: 1.2 MV dec time: 0.22 sec Lat Peak E' Jeff: 8.5 cm/sec E/ e' (lat): 8.7 Med Peak E' Jeff: 5.9 cm/sec E/e' (med): 12.6 E/e' Average: 10.6 TR max jeff: 198.7 cm/sec I ?WMSI = 1.38 ? % Normal = 75 ?Segments ??Size X - Cannot ?2 - ?4 - ?1-2 ? small Interpret ?1 - Normal ?? Hypokinetic 3 - Akinetic Dyskinetic ?? 3-5 ? moderate 5 - ? 6-14 ?large Aneurysmal ?15-16 ?? diffuse Procedure Note Heladio Shetty MD - 06/05/2023 1 [place] [address] Echocardiogram Report Name: SHOSHANA RUSSO Study Date: 410:05 AMBP: 121/69 mmHg Patient Location: [address] : 1975 Height: 177 cm Account: [id number] Age: 47 yrs Weight: 119 kg Gender: Male BSA: 2.3 m2 Ordering Physician: JONATHAN ROJAS Referring Physician: OANH DUMAS Performed By: Phuong Cornell Reason For Study: ST elevation myocardial infarction involving rightcoronary artery Exam Location: [facility]. Interpretation Summary Left ventricular systolic function is mildly reduced. The leftventricular ejection fraction is 51% by Rincon's biplane with regional wall motion abnormalities at the inferior and inferolateral jarrell (see linked PDF). The RV is moderately dilated with mild to moderately reduced systolicfunction. Normal LA size. There is mild to moderate tricuspid regurgitation. Other details as below. 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 Priorecho report from 09/2018 the same LVEF and inferior WMA, but RV was normal. Procedure Complete-[id number]. Image enhancement Optison was used for left ventricular opacification. Suboptimal quality. There is normal sinus rhythm. Left Ventricle Left ventricle is of normal size. Moderately increased thickness of thebasal septum with no obstruction to LV outflow. There is no ventricular septaldefect. Left ventricular systolic function is mildly reduced. The leftventricular ejection fraction is 51% by Rincon's biplane. There are segmental wallmotion abnormalities. Right Ventricle Right ventricle is moderately dilated. Right ventricular systolic functionis moderately decreased. Left Atrium The left atrium is normal. The interatrial septum is not wellvisualized. Right Atrium The right atrium is mildly dilated. Aortic Valve The aortic valve is structurally and functionally normal. The aortic valveis tricuspid. There is no aortic stenosis. There is no aorticregurgitation. Mitral Valve The mitral valve is structurally and functionally normal. There is tracemitral regurgitation. Tricuspid Valve The tricuspid valve is structurally normal. There is mild to moderatetricuspid regurgitation. Pulmonic Valve The pulmonic valve appears to be structurally and functionally normal.There is trace pulmonic valve regurgitation. Great Arteries The diameter at the level of the sinuses of Valsalva is 3.3 cm. Themaximum diameter of the proximal ascending aorta is 3.2 cm. The pulmonary arteryis not well visualized. Venous Inferior vena cava is not well visualized. Pericardium/Pleural There is no pericardial effusion. A pericardial fat pad is present. Hemodynamics The peak right ventricular systolic pressure is 16 mmHg. Plus RApresssure. Left ventricular diastolic function is abnormal. Ejection Fraction 2D Measurements Volumes EF(MOD-bp): 51.0 % IVSd: 1.5 cm LAV(MOD-bp)Indexed: LVIDd: 4.2 cm LVIDs: 3.5 cm 23.4 ml/m2 LVPWd: 0.98 cm RA A4Cs_phl: 19.4cm2 EDV(MOD-bp)Indexed: RWT: 0.47 {ratio} LV mass(C)d: 189.7 grams 52.5 ml/m2 LV mass(C)dI: 81.2 grams/m2 ESV(MOD-bp)Indexed: Ao root diam: 3.3 cm 25.7 ml/m2 Ao root diam index: 1.4 SV(LVOT): 77.0ml asc Aorta Diam: 3.2 cm LVOT diam: 2.3 cm SI(LVOT): 32.9ml/m2 TAPSE_phl: 1.4 cm Doppler LV V1 VTI: 18.5 cm MV E max jeff: 73.7 cm/sec MV A max jeff: 61.4 cm/sec MV E/A: 1.2 MV dec time: 0.22 sec Lat Peak E' Jeff: 8.5 cm/sec E/ e' (lat): 8.7 Med Peak E' Jeff: 5.9 cm/sec E/e' (med): 12.6 E/e' Average: 10.6 TR max jeff: 198.7 cm/sec I WMSI = 1.38 % Normal = 75 SegmentsSize X - Cannot 2 - 4 - 1-2small Interpret 1 - Normal Hypokinetic 3 - Akinetic Dyskinetic 3-5moderate 5 - 6-14large Aneurysmal 15-16diffuse Jonathan Rojas MD ECHO ORDERABLES * POCT Glucose (06/05/2023 7:54 AM EDT) Glucose, POC 175 65 - 199 mg/dL [facility] Comment: Supplemental ranges: <140 mg/dL before meals <180 mg/dL all other times of the day Blood 06/05/2023 7:54 AM EDT 06/05/2023 7:54 AM EDT Jonathan Rojas MD POINT OF CARE T EST ORDERABLES [facility] [place] [address] * POCT Glucose (06/05/2023 3:09 AM EDT) Glucose, POC 165 65 - 199 mg/dL [facility] Comment: Supplemental ranges: <140 mg/dL before meals <180 mg/dL all other times of the day Blood 06/05/2023 3:09 AM EDT 06/05/2023 3:09 AM EDT Azul Mccoy MD POINT OF CARE TEST ORDERABLES [facility] [place] [address] * LDL Cholesterol, Direct (06/05/2023 3:04 AM EDT) LDL Cholesterol, Direct 50 mg/dL [facility] Comment: Desirable: ? <100 mg/dL Above Desirable: 100-129 mg/dL Borderline High: 130-159 mg/dL High: ?160-189 mg/dL Very High: ? >vw=098 mg/dL If not reaching LDL goals on maximally tolerated statin, consider exetimibe and/or a PCSK9 inhibitor: ?? Target for primary prevention: LDL<100 ?? Target for those with ASCVD or diabetes and 19-year risk >or=20%: LDL<70 ?? Target for those with very high risk ASCVD: LDL<55 (Very high risk being the presence of 2 or more of: recent acute coronary syndrome, past myocardial infarction, ischemic stroke, symptomatic perpheral artery disease). Blood 06/05/2023 3:04 AM EDT 06/05/2023 3:15 AM EDT Narrative Resulting Agency Comment Spec In Lab Mirna Gan MD CHEMISTRY ORDERABLES [facility] [place] [address] * (ABNORMAL) Differential, Automated (06/05/2023 3:04 AM EDT) Neutrophil % 71.0 % [facility] Neutrophil Absolute 7.63(H) 1.70 - 6.10 x10(3)/mc L [facility] Lymph % 17.4 % [facility] Lymphocytes Abs 1.9 0.9 - 3.2 x10(3)/mc L [facility] Monocyte % 8.9 % [facility] Monocyte Abs 1.0(H) 0.3 - 0.9 x10(3)/mc L [facility] Eos % 1.5 % [facility] Eosinophils Abs 0.2 0.0 - 0.4 x10(3)/mc L [facility] Basophil % 0.7 % [facility] Baso Absolute 0.1 0.0 - 0.1 x10(3)/mc L [facility] Immature Gran % 0.50 % [facility] Comment: Immature granulocytes(IG's)percentage and absolute count will include metamyelocytes, myelocytes, and promyelocytes. Blood smears from CBCs yielding IG's will be scanned manually for concordance. If this scan disagrees with the automated IG or if promyelocytes are noted, a manual differential will be performed. Immature Gran Absolute 0.05(H) 0.00 - 0.04 x10(3)/ L [facility] Blood 06/05/2023 3:04 AM EDT 06/05/2023 3:12 AM EDT Narrative Resulting Agency Comment Spec In Lab Mirna Gan MD HEMATOLOGY ORDERABLE S [facility] [place] [address] * (ABNORMAL) Hemogram (06/05/2023 3:04 AM EDT) White Blood Cell 10.7(H) 4.0 - 9.5 x10(3)/ L [facility] Red Blood Cell 5.20 4.58 - 5.54 x10(6)/[facility] Hemoglobin 10.6(L) 13.7 - 16.5 g/dL [facility] Hematocrit 36.4(L) 40.5 - 48.5 % [facility] Mean Cell Volume 70.0(L) 82.9 - 93.1 fL [facility] Mean Cell Hemoglobin 20.4(L) 27.5 - 32.1 pg [facility] Mean Cell Hemoglobin Concentration 29.1(L) 32.0 - 35.7 g/dL [facility] Platelet 262 145 - 357 x10(3)/ L [facility] RDW Standard Deviation 44.9 36.0 - 45.0 fL [facility] RDW coefficient of variation 18.9(H) 11.4 - 13.8 % [facility] Mean Platelet Volume 11.3 7.6 - 12.9 fL [facility] NRBC% auto 0.0 % [facility] NRBC Absolute 0.000 0.000 - 0.000 x10(3)/mc L [facility] Blood 06/05/2023 3:04 AM EDT 06/05/2023 3:12 AM EDT Narrative Resulting Agency Comment Spec In Lab Mirna Gan MD HEMATOLOGY ORDERABLE S Performing Organization Address City/[facility]/ZIP Co de Phone Number [facility] [place] [address] * Magnesium (06/05/2023 3:04 AM EDT) Magnesium 0.89 0.69 - 1.07 mmol/L [facility] Blood 06/05/2023 3:04 AM EDT 06/05/2023 3:12 AM EDT Narrative Resulting Agency Comment Spec In Lab Azul Mccoy MD CHEMISTRY ORDERABLE S Performing Organization Address [facility] Co de Phone Number [facility] [place] [address] * (ABNORMAL) Basic Metabolic Panel (non-fasting) (06/05/2023 3:04 AM EDT) Glucose 174 65 - 199 mg/dL [facility] Comment:Diabetes: >=200 mg/d L plus symptoms Blood Urea Nitrogen 30(H) 10 - 20 mg/dL [facility] Creatinine 2.16(H) 0.80 - 1.50 mg/dL [facility] Sodium 138 135 - 145 mmol/L [facility] Potassium 5.0 3.5 - 5.0 mmol/L [facility] Comment: Please note: ??Patients with WBC >100,000 may have falsely elevated Potassium levels. ??For accurate Potassium quantification in these patients send serum separator tube (gold top) for subsequent determinations. ??Contact the Clinical Chemistry Laboratory if there are any questions. Chloride 107 98 - 107 mmol/L [facility] Carbon Dioxide 22 22 - 31 mmol/L [facility] Anion Gap 9 5 - 15 mmol/L [facility] Calcium 8.6 8.5 - 10.5 mg/dL [facility] Est Glomerular Filtration Rate 38(L) >=60 mL/min/1. 73 m?? [facility] Comment: This patient's estimated GFR [...] and symptoms in addition to eGFR. Blood 06/05/2023 3:04 AM EDT 06/05/2023 3:12 AM EDT Narrative Resulting Agency Comment Spec In Lab Azul Mccoy MD CHEMISTRY ORDERABLE S Performing Organization Address City/State/[facility] Co de Phone Number [facility] [place] [address] * Lipid Panel (Reflex Direct LDL) (06/05/2023 3:04 AM EDT) Cholesterol, Total 128 mg/dL [facility] Comment: Desirable: ? <200 mg/dL Borderline High: 200-239 mg/dL Higher: ?>la=929 mg/dL Triglyceride 405 mg/dL [facility] Comment: Normal: ?<150 mg/dL Borderline High: 150-199 mg/dL High: ?200-499 mg/dL Very High: ? >fu=273 mg/dL HDL Cholesterol 25 mg/dL [facility] Comment: Females: High Risk: <50 mg/dL Males: High Risk: <40 mg/dL LDL Cholesterol Not Calculated [facility] Comment: Calculated LDL value is not valid for triglycerides greater than 400 mg/dl. Desirable: ? <100 mg/dL Above Desirable: 100-129 mg/dL Borderline High: 130-159 mg/dL High: ?160-189 mg/dL Very High: ? >fr=087 mg/dL Lipid Interpretation See Note [facility] Comment: It is important to review the results of your lipid panel with your health care provider. You can compare your lipid results to the ranges below and whether they are in the desirable range. These ranges are only meant to be used for people without known cardiac disease, history of stroke, or peripheral vascular disease (blockages in the leg arteries or diabetes). If ??you have one of these conditions, your desirable LDL-C (bad cholesterol) will likely be even lower. ACC/AHA Guidelines (most recently Lakia et al. [facility] 11/23/21): For individuals with atherosclerotic cardiovascular disease (ASCVD)or LDL >dq=697 mg/dL, use a high-intensity statin (40-80 mg atorvastatin or 20-40 mg rosuvastatin with goal >or=50% LDL reduction) For individuals with diabetes, age 40-75 without ASCVD, moderate-intensity statin (goal 30-49% LDL reduction); consider high intensity statin for those with increased risk. For adults without diabetes or ASCVD, aged 40-75 with LDL 70-189 mg/dL, estimate 10 year ASCVD risk with smartphrase .ASCVDRISK or Dynamed Decisions. If 10 year risk is 7.5%-19.9% (intermediate risk), consider moderate intensity statin based on risk enhancers and patient preference. Consider coronary artery calcium test (CT) if there is concern regarding the benefit of a statin. If ten year risk is >or=20%, initiate high-intensity statin. Evaluate for secondary causes of triglycerides >500 mg/dL or LDL >190 mg/dL. Lifestyle modification is a critical component of ASCVD risk reduction. If not reaching LDL goals on maximally tolerated statin, consider ezetimibe and/or a PCSK9 inhibitor: Target for primary prevention: LDL<100 Target for those with ASCVD or diabetes and 10-year risk >or=20%: LDL<70 Target for those with very high risk ASCVD: LDL<55 (Very high risk being the presence of 2 or more of: recent acute coronary syndrome, past myocardial infarction, ischemic stroke, symptomatic peripheral artery disease) Blood 06/05/2023 3:04 AM EDT 06/05/2023 3:12 AM EDT Narrative Resulting Agency Comment Spec In Lab Azul Mccoy MD CHEMISTRY ORDERABLE S Performing Organization Address [facility] Co de Phone Number [facility] [place] [address] * (ABNORMAL) Hemoglobin A1c (06/05/2023 3:04 AM EDT) Hemoglobin A1c 11.2(H) 4.3 - 5.6 % [facility] Comment: Reference Range: 4.3 - 5.6% 5.7 - 6.4% - Increased Risk of Developing Diabetes Mellitus >= 6.5% - Consistent with diagnosis of Diabetes Mellitus In the absence of hyperglycemia (i.e. plasma glucose > 200 mg/dL) or classic symptoms of hyperglycemia a repeat measurement of HbA1c should be performed on a separate sample to confirm the diagnosis. Diagnosis and Classification of Diabetes Mellitus, Diabetes Care 2013; 36: Suppl. 1, S67-43 Estimated Average Glucose 273 mg/dL [facility] Blood 06/05/2023 3:04 AM EDT 06/05/2023 3:12 AM EDT Narrative Resulting Agency Comment Spec In Lab Azul Mccoy MD CHEMISTRY ORDERABLE S Performing Organization Address [facility]/ZIP Co de Phone Number [facility] [place] [address] * POCT Glucose (06/04/2023 11:04 PM EDT) Glucose, POC 179 65 - 199 mg/dL [facility] Comment: Supplemental ranges: <140 mg/dL before meals <180 mg/dL all other times of the day Blood 06/04/2023 11:0 4 PM EDT 06/04/2023 11:04 PM EDT Azul Mccoy MD POINT OF CARE TEST ORDERABLES Performing Organization Address [facility] Co de Phone Number [facility] [place] [address] * POCT Glucose (06/04/2023 7:52 PM EDT) Glucose, POC 167 65 - 199 mg/dL [facility] Comment: Supplemental ranges: <140 mg/dL before meals <180 mg/dL all other times of the day Blood 06/04/2023 7:52 PM EDT 06/04/2023 7:52 PM EDT Azul Mccoy MD POINT OF CARE TEST ORDERABLES Performing Organization Address [facility] Co de Phone Number [facility] [place] [address] * EKG 12 Lead (06/04/2023 7:05 PM EDT) Ventricular rate 94 BPM MUSE SYSTEM Atrial Rate 94 BPM MUSE SYSTEM P-R Interval 182 ms MUSE SYSTEM QRS Duration 98 ms MUSE SYSTEM Q-T Interval 340 ms MUSE SYSTEM QTC Calculated (Bezet) 425 ms MUSE SYSTEM Calculated P [place] 42 degrees MUSE SYSTEM Calculated R [place] 3 degrees MUSE SYSTEM Calculated T [place] 43 degrees MUSE SYSTEM INTERPRETATION Normal sinus rhythm Minimal voltage criteria for LVH, may be normal variant ( R in aVL ) Inferior infarct (cited on or before 12-OCT-2018) Abnormal ECG When compared with ECG of 04-JUN-2023 17:18, No significant change was found Confirmed by MD Jose Cruz, Jr ([id number]) on 06/05/2023 1:16:23 PM MUSE SYSTEM 06/04/2023 7:05 PM EDT 06/05/2023 1:16 PM EDT Azul Mccoy MD ECG ORDERABLES MUSE SYSTEM * Scan, Peripheral Blood (06/04/2023 6:57 PM EDT) Pathologist [facility] estimate Normal [facility] RBC Morphology Abnormal [facility] Microcyte 1-5 /HPF [facility] Hypochromia Slight [facility] Ovalocytes 1-5 /HPF [facility] Blood 06/04/2023 6:57 PM EDT 06/04/2023 7:03 PM EDT Narrative Resulting Agency Comment Spec In Lab Mirna Gan MD HEMATOLOGY ORDERABLE S Performing Organization Address City/[facility]/ZIP Co de Phone Number [facility] [place] [address] * (ABNORMAL) Differential, Automated (06/04/2023 6:57 PM EDT) [facility] Neutrophil % 78.5 % [facility] Neutrophil Absolute 10.92(H) 1.70 - 6.10 x10(3)/mc L [facility] Lymph % 12.8 % [facility] Lymphocytes Abs 1.8 0.9 - 3.2 x10(3)/mc L [facility] Monocyte % 6.4 % [facility] Monocyte Abs 0.9 0.3 - 0.9 x10(3)/mc L [facility] Eos % 1.3 % [facility] Eosinophils Abs 0.2 0.0 - 0.4 x10(3)/mc L [facility] Basophil % 0.6 % [facility] Baso Absolute 0.1 0.0 - 0.1 x10(3)/mc L [facility] Immature Gran % 0.40 % [facility] Comment: Immature granulocytes(IG's)percentage and absolute count will include metamyelocytes, myelocytes, and promyelocytes. Blood smears from CBCs yielding IG's will be scanned manually for concordance. If this scan disagrees with the automated IG or if promyelocytes are noted, a manual differential will be performed. Immature Gran Absolute 0.05(H) 0.00 - 0.04 x10(3)/[facility] Blood 06/04/2023 6:57 PM EDT 06/04/2023 7:03 PM EDT Narrative Resulting Agency Comment Spec In Lab Mirna Gan MD HEMATOLOGY ORDERABLE S [facility] [place] [address] * (ABNORMAL) Hemogram (06/04/2023 6:57 PM EDT) White Blood Cell 13.9(H) 4.0 - 9.5 x10(3)/[facility] Red Blood Cell 5.61(H) 4.58 - 5.54 x10(6)/[facility] Hemoglobin 11.4(L) 13.7 - 16.5 g/dL [facility] Hematocrit 38.8(L) 40.5 - 48.5 % [facility] Mean Cell Volume 69.2(L) 82.9 - 93.1 fL [facility] Mean Cell Hemoglobin 20.3(L) 27.5 - 32.1 pg [facility] Mean Cell Hemoglobin Concentration 29.4(L) 32.0 - 35.7 g/dL [facility] Platelet 272 145 - 357 x10(3)/[facility] RDW Standard Deviation 43.8 36.0 - 45.0 [facility] RDW coefficient of variation 18.8(H) 11.4 - 13.8 % [facility] Mean Platelet Volume 10.7 7.6 - 12.9 [facility] NRBC% auto 0.0 % [facility] NRBC Absolute 0.000 0.000 - 0.000 x10(3)/mc L [facility] Blood 06/04/2023 6:57 PM EDT 06/04/2023 7:03 PM EDT Narrative Resulting Agency Comment Spec In Lab Mirna Gan MD HEMATOLOGY ORDERABLE S [facility] [place] [address] * TSH (06/04/2023 6:57 PM EDT) Thyroid Stimulating Hormone 3.68 0.27 - 4.20 mcIU/mL [facility] Comment: Reference Interval (mcIU/mL): Females: ??First Trimester: 0.23-3.88 ??Second Trimester: 0.22-3.90 ??Third Trimester: 0.44-4.66 Blood 06/04/2023 6:57 PM EDT 06/04/2023 7:03 PM EDT Narrative Resulting Agency Comment Spec In Lab Azul Mccoy MD CHEMISTRY ORDERABLE S Performing Organization Address City/[facility]/ZIP Co de Phone Number [facility] [place] [address] * Magnesium (06/04/2023 6:57 PM EDT) Magnesium 0.85 0.69 - 1.07 mmol/L [facility] Blood 06/04/2023 6:57 PM EDT 06/04/2023 7:03 PM EDT Narrative Resulting Agency Comment Spec In Lab Azul Mccoy MD CHEMISTRY ORDERABLE S Performing Organization Address City/[facility]/ZIP Co de Phone Number [facility] [place] [address] * (ABNORMAL) Basic Metabolic Panel (non-fasting) (06/04/2023 6:57 PM EDT) Glucose 193 65 - 199 mg/dL [facility] Comment:Diabetes: >=200 mg/d L plus symptoms Blood Urea Nitrogen 29(H) 10 - 20 mg/dL [facility] Creatinine 2.07(H) 0.80 - 1.50 mg/dL [facility] Sodium 137 135 - 145 mmol/L [facility] Potassium 5.3(H) 3.5 - 5.0 mmol/L [facility] Comment: Please note: ??Patients with WBC >100,000 may have falsely elevated Potassium levels. ??For accurate Potassium quantification in these patients send serum separator tube (gold top) for subsequent determinations. ??Contact the Clinical Chemistry Laboratory if there are any questions. Chloride 104 98 - 107 mmol/L [facility] Carbon Dioxide 23 22 - 31 mmol/L [facility] Anion Gap 10 5 - 15 mmol/L [facility] Calcium 9.1 8.5 - 10.5 mg/dL [facility] Est Glomerular Filtration Rate 40(L) >=60 mL/min/1. 73 m?? [facility] Comment: This patient's estimated GFR [...] and symptoms in addition to eGFR. Blood 06/04/2023 6:57 PM EDT 06/04/2023 7:03 PM EDT Narrative Resulting Agency Comment Spec In Lab Azul Mccoy MD CHEMISTRY ORDERABLE S [facility] [place] [address] * (ABNORMAL) POCT Glucose (06/04/2023 5:34 PM EDT) Glucose, POC 201(H) 65 - 199 mg/dL [facility] Comment: Supplemental ranges: <140 mg/dL before meals <180 mg/dL all other times of the day Blood 06/04/2023 5:34 PM EDT 06/04/2023 5:34 PM EDT Azul Mccoy MD POINT OF CARE TEST ORDERABLES [facility] [place] [address] * CARDIAC CATHETERIZATION (06/04/2023 5:20 PM EDT) Anatomical Region Laterality Modality Other Narrative 06/14/2023 10:07 AM EDT ?[facility] ? Cardiac Catheterization/Intervention Report ? Patient Name: Karan Shoshana Vira. ? Procedure Date: 06/04/2023 ? A #: [id number] ? Primary Physician: Azul Rowley I ? Case #: [id number] ? File Name: [id number] ? Catheterization Order Number: [id number] ? [facility] ? Final Report [place], [place] ? Patient Name: ? Shoshana M. Brill ? ID#: ?[id number] ? : ?1975 ? Procedure Date: ? June 04, 2023 ? Case #: ? [id number] ? Room: ? 6 ? Case Physician: ? Azul Rowley M.D. ? Start: ?16:19 ? Admission: ??06/04/2023 ? Referring Physician: ??Oanh Dumas M.D. ? Discharge: ??06/07/2023 ? Procedures: ?* Coronary Angiography ?* Left Heart Catheterization ?* Coronary Ultrasound ?* Coronary Stent Insertion ? Pre Case Status: ?These procedures were performed on an emergent basis. ? History ?Shoshana Russo is a 47 year old man. He has hypertension. The patient's ?smoking status is Former. He has hypercholesterolemia managed with lipid ?therapy. The patient has diabetes managed by diet, insulin and oral ?medication. He has a prior history of coronary artery disease. The ?patient is status post an acute ST elevation myocardial infarction as ?well as a remote myocardial infarction. He had a coronary intervention ?procedure. Prior to the initiation of this procedure, the patient was ?designated as ASA Class IV. The [facility] clinical frailty scale is 3: ?Managing Well. ? Diagnostic Tests: ?Electrocardiography: ? EKG was assessed by ECG. EKG was Abnormal. EKG showed ST Deviation ? >= 0.5 mm. ?Medications Prior to Procedure: ? Angiotensin Converting Enzyme Inhibitor, Aspirin, Beta Yajaira and ? Statin. ? Indications for Diagnostic Cath: ?The priority of the diagnostic procedure was Emergent. The indication for ?the propagator laborer visit is ACS less than or equal to 24 hrs. Chest pain ?symptom assessment was: Typical Angina. ? Technique: ?A 6 SLFr sheath was inserted in the right radial artery utilizing the ?Seldinger technique. The left coronary artery was injected utilizing a ?5Fr JL 3.5 catheter. A 6Fr JR 4 catheter was used to inject the right ?coronary artery. Left ventricular pressure was performed utilizing a 6Fr ?JR 4 catheter. Coronary stent insertion was performed and the equipment ?utilized will be described in the intervention summary section. 10,000 ?units of heparin were administered. A total of 200cc of Omnipaque were ?opened, 100cc of Omnipaque were administered and 100cc of Omnipaque were ?wasted. Radiation: Fluoro time was 15.1 minutes, dose area product was ?69.60 Gy/cm2 and air kerma was 1,060 mGY. See the case log for additional ?details. ?The patient received the following medications prior to and during the ?procedure: ? Low Molecular Weight Heparin, Unfractionated Heparin and ? Clopidogrel. ? Hemodynamics: ?Left Heart Pressures ? Resting: ? Syst Diast ? EDP ?a ?v ? m ?Ao 136 ?? 73 ?101 ?LV 130 ? 18 ? Coronary Angiography: ?Dominance: Right ?Left Main ? There was mild diffuse (<=25% stenosis) disease of the entire vessel ? segment of the left main artery. ?Left Anterior Descending ? There was mild diffuse (<=25% stenosis) disease of the entire vessel ? segment of the left anterior descending artery (LAD). ??The mid ? segment of the LAD had a diffuse 50% stenosis. ?Left Circumflex ? There was mild diffuse (<=25% stenosis) disease of the entire vessel ? segment of the left circumflex artery (LCX). ??The mid segment of the ? LCX had a multiple discrete 80% stenoses. ??This lesion represented ? in-stent restenosis following a prior coronary stent insertion. ? There was moderate diffuse (<=50% stenosis) disease of the entire ? vessel segment of the first obtuse marginal branch (OM1) of the LCX. ?The OM1 was small. ?Right Coronary Artery ? There was a single discrete total occlusion of the proximal segment ? of the right coronary artery (RCA). ??The mid segment of the RCA had ? a single discrete total occlusion. ? Intravascular Imaging/Physiology: ?Intravascular Ultrasound was performed in the mid RCA using a 6 Fr JR 4 ?guiding catheter and a 3.5 Fr [place] 20 Mhz using Manual ?pullback. ??Imaging was successful. ??Image quality was good. ?Indication: IVUS performed for pre intervention planning. ?IVUS performed after pre-dilation. ?Findings Pre-Intervention: scattered plaque and thrombus. The lesion ?cross-sectional area was 2.20mm2. ??These measurements were performed ?after pre-dilation of the lesion. ?Findings Post-Intervention: The post intervention minimal cross- sectional ?area was 6.50mm2. ??The stent was well expanded and apposed. ?Conclusions: stent/intervention appears optimized. ?Intravascular Ultrasound was performed in the proximal RCA using a 6 Fr ?JR 4 guiding catheter and a 3.5 Fr [place] 20 Mhz using Manual ?pullback. ??Imaging was successful. ??Image quality was good. ?Indication: IVUS performed for pre intervention planning. ?IVUS performed after pre-dilation. ?Findings Pre-Intervention: scattered plaque. The lesion cross-sectional ?area was 2.20mm2. ??These measurements were performed after pre-dilation ?of the lesion. ?Findings Post-Intervention: The post intervention minimal cross- sectional ?area was 6.80mm2. ??The stent was well expanded and apposed. ?Conclusions: stent/intervention appears optimized. ? Indication for Intervention: ?Coronary intervention was indicated for primary therapy for an acute ?myocardial infarction. The priority for the procedure was Emergent. The ?NCDR indication for the procedure was STEMI-Rescue (after Unsuccessful ?lytics). STEMI onset was 06/03/2023 at 8:00 AM, estimated. Thrombolytics ?were administered on 06/04/2023 at 2:36 PM. Initial PCI was performed for ?multivessel disease. ? Intervention Summary: ?Right Coronary Artery ? Proximal 100% ? Stent insertion was performed on the total occlusion in the ? proximal segment of the RCA. This was a de susy lesion. ? According to the ACC/AHA classification system, this lesion ? was a type C high risk lesion. Primary prevention of ? restenosis was the indication for stent insertion. This was ? the culprit lesion. A guidewire was placed across this lesion. ? Vessel flow pre intervention was FAUZIA 0. Lesion length was ? 20mm. ? Stent insertion was accomplished through a 6 Fr. JR 4 guide. ? The lesion was predilated with a 2.50mm EUPHORA 15 MM balloon ? with a maximum inflation pressure of 13 atmospheres. ??A ? premounted 3.00 x 18 mm [place] (MARIALUISA) was deployed with ? a maximum inflation pressure of 12 atmospheres. ??Following ? stent deployment, the lesion was dilated using a 3.50mm [place] ? EUPHORA 15 MM balloon with a maximum inflation pressure of 12 ? atmospheres. ? The final outcome was defined as successful. A coronary ? arteriolar vasodilator was administered as part of the ? intervention on this lesion. There was no residual stenosis ? following this intervention. The final FAUZIA flow was 3. ? Mid 100% ? Stent insertion was performed on the total occlusion in the ? mid segment of the RCA. This was a de susy lesion. This lesion ? was designated a type C high risk lesion based on ACC/AHA ? classification system. Primary prevention of restenosis was ? the indication for stent insertion. A guidewire was placed ? across this lesion. Vessel flow pre intervention was FAUZIA 0. ? Lesion length was 30mm. This lesion was severely calcified. ? Stent insertion was accomplished through a 6 Fr. JR 4 guide. ? The lesion was predilated with a 2.50mm EUPHORA 15 MM balloon ? with a maximum inflation pressure of 13 atmospheres. ??A ? premounted 2.75 x 38 mm [place] (MARIALUISA) was deployed with ? a maximum inflation pressure of 12 atmospheres. ??Following ? stent deployment, the lesion was dilated using a 3.00mm NC ? EUPHORA 12 MM balloon with a maximum inflation pressure of 15 ? atmospheres. ? The final outcome was defined as successful. A coronary ? arteriolar vasodilator was administered as part of the ? intervention on this lesion. There was no residual stenosis ? following this intervention. The final FAUZIA flow was 3. ? Vascular Access: ?Vascular Access Management: ? Mechanical Compression of the right radial artery access site was ? performed. ? Dual Antiplatelet (DAPT) Recommendations: ?Drug eluting stent (MARIALUISA) inserted. ?P2Y12 Loading dose administered prior to arrival in the propagator laborer. ?Recommended anti-platelet/anti-thrombotic regimen: ?Start aspirin 81 mg daily now and continue for indefinitely. ?Start clopidogrel 75 mg daily now and continue for 12 months then stop. ?These recommendations are made at the time of the intervention. Patient ?and provider preferences or a changing clinical situation may require ?modification of this regimen. Consult [facility] [place] for ?questions. ?The 1 year bleeding risk as calculated by the PRECISE DAPT score is Low ?risk. ? Conclusions: ?* Three vessel coronary artery disease (LAD, LCX and RCA) ?* Successful stent insertion of the mid RCA lesion ?* Successful stent insertion of the proximal RCA lesion ?* See Dual Antiplatelet (DAPT) Recommendations above ? Complications/Events: ?The patient had no complications during these procedures. ? Post Procedure Fluid Recommendations: ?IV fluid at 351 mL/hr for 4 hours for a total of 1,404 mL. These ?recommendations are made at the time of the procedure. Patient and ?provider preferences or a changing clinical situation may require ?modification of this regimen. ? Recommendations: ?Based upon the results of this procedure, it was recommended that the ?patient be managed with medical therapy. ?The attending physician was present for the entire procedure. ?Dr. Azul Rowley M.D. was present during the moderate sedation ?intraservice time as documented by the sedation nurse. ??Case time = 00:46. ?Dr. Azul Rowley M.D. performed the coronary angiography, left heart ?catheterization, stent insertion-coronary and IVUS # coronary. ? Azul Rowley M.D. ? Electronically Signed by: Azul Rowley M.D. ? Report Finalized: 06/14/2023 ??10:03 ? Report Last Ammended: 09/13/2023 ??11:46 ? Procedure Note Azul Rowley MD - 09/13/2023 [facility] Cardiac Catheterization/Intervention Report Patient Name: Shoshana RussoDyan Procedure Date: 06/04/2023 A #: [id number] Primary Physician: Azul Rowley I Case #: [id number] File Name: [id number] Catheterization Order Number: [id number] [facility] FinalReport [place], [place] Patient Name: Shoshana Russo ID#:[id number] :1975 Procedure Date: June 04, 2023 Case #: [id number] Room: 6 Case Physician: Azul Rowley M.D. Start: 16:19 Admission:06/04/2023 Referring Physician: Oanh Dumas M.D. Discharge:06/07/2023 Procedures: * Coronary Angiography * Left Heart Catheterization * Coronary Ultrasound * Coronary Stent Insertion Pre Case Status: These procedures were performed on an emergent basis. History Shoshana Russo is a 47 year old man. He has hypertension. Thepatient's smoking status is Former. He has hypercholesterolemia managed withlipid therapy. The patient has diabetes managed by diet, insulin and oral medication. He has a prior history of coronary artery disease. The patient is status post an acute ST elevation myocardial infarctionas well as a remote myocardial infarction. He had a coronaryintervention procedure. Prior to the initiation of this procedure, the patientwas designated as ASA Class IV. The [facility] clinical frailty scale is 3: Managing Well. Diagnostic Tests: Electrocardiography: EKG was assessed by ECG. EKG was Abnormal. EKG showed STDeviation >= 0.5 mm. Medications Prior to Procedure: Angiotensin Converting Enzyme Inhibitor, Aspirin, Beta Blockerand Statin. Indications for Diagnostic Cath: The priority of the diagnostic procedure was Emergent. Theindication for the propagator laborer visit is ACS less than or equal to 24 hrs. Chest pain symptom assessment was: Typical Angina. Technique: A 6 SLFr sheath was inserted in the right radial artery utilizingthe Seldinger technique. The left coronary artery was injected utilizinga 5Fr JL 3.5 catheter. A 6Fr JR 4 catheter was used to inject theright coronary artery. Left ventricular pressure was performed utilizing a6Fr JR 4 catheter. Coronary stent insertion was performed and theequipment utilized will be described in the intervention summary section.10,000 units of heparin were administered. A total of 200cc of Omnipaquewere opened, 100cc of Omnipaque were administered and 100cc of Omnipaquewere wasted. Radiation: Fluoro time was 15.1 minutes, dose area productwas 69.60 Gy/cm2 and air kerma was 1,060 mGY. See the case log foradditional details. The patient received the following medications prior to and duringthe procedure: Low Molecular Weight Heparin, Unfractionated Heparin and Clopidogrel. Hemodynamics: Left Heart Pressures Resting: Syst Diast EDP a v m Ao 136 73 101 LV 130 18 Coronary Angiography: Dominance: Right Left Main There was mild diffuse (<=25% stenosis) disease of the entirevessel segment of the left main artery. Left Anterior Descending There was mild diffuse (<=25% stenosis) disease of the entirevessel segment of the left anterior descending artery (LAD). The mid segment of the LAD had a diffuse 50% stenosis. Left Circumflex There was mild diffuse (<=25% stenosis) disease of the entirevessel segment of the left circumflex artery (LCX). The mid segmentof the LCX had a multiple discrete 80% stenoses. This lesionrepresented in-stent restenosis following a prior coronary stent insertion. There was moderate diffuse (<=50% stenosis) disease of theentire vessel segment of the first obtuse marginal branch (OM1) of theLCX. The OM1 was small. Right Coronary Artery There was a single discrete total occlusion of the proximalsegment of the right coronary artery (RCA). The mid segment of the RCAhad a single discrete total occlusion. Intravascular Imaging/Physiology: Intravascular Ultrasound was performed in the mid RCA using a 6 FrJR 4 guiding catheter and a 3.5 Fr [place] 20 Mhz using Manual pullback. Imaging was successful. Image quality was good. Indication: IVUS performed for pre intervention planning. IVUS performed after pre-dilation. Findings Pre-Intervention: scattered plaque and thrombus. The lesion cross-sectional area was 2.20mm2. These measurements were performed after pre-dilation of the lesion. Findings Post-Intervention: The post intervention minimalcross-sectional area was 6.50mm2. The stent was well expanded and apposed. Conclusions: stent/intervention appears optimized. Intravascular Ultrasound was performed in the proximal RCA using a 6Fr JR 4 guiding catheter and a 3.5 Fr [place] 20 Mhz usingManual pullback. Imaging was successful. Image quality was good. Indication: IVUS performed for pre intervention planning. IVUS performed after pre-dilation. Findings Pre-Intervention: scattered plaque. The lesioncross-sectional area was 2.20mm2. These measurements were performed afterpre-dilation of the lesion. Findings Post-Intervention: The post intervention minimalcross-sectional area was 6.80mm2. The stent was well expanded and apposed. Conclusions: stent/intervention appears optimized. Indication for Intervention: Coronary intervention was indicated for primary therapy for an acute myocardial infarction. The priority for the procedure was Emergent.The NCDR indication for the procedure was STEMI-Rescue (afterUnsuccessful lytics). STEMI onset was 06/03/2023 at 8:00 AM, estimated.Thrombolytics were administered on 06/04/2023 at 2:36 PM. Initial PCI wasperformed for multivessel disease. Intervention Summary: Right Coronary Artery Proximal 100% Stent insertion was performed on the total occlusion inthe proximal segment of the RCA. This was a de susy lesion. According to the ACC/AHA classification system, thislesion was a type C high risk lesion. Primary prevention of restenosis was the indication for stent insertion. Thiswas the culprit lesion. A guidewire was placed across thislesion. Vessel flow pre intervention was FAUZIA 0. Lesion lengthwas 20mm. Stent insertion was accomplished through a 6 Fr. JR 4guide. The lesion was predilated with a 2.50mm EUPHORA 15 MMballoon with a maximum inflation pressure of 13 atmospheres. A premounted 3.00 x 18 mm [place] (MARIALUISA) was deployedwith a maximum inflation pressure of 12 atmospheres.Following stent deployment, the lesion was dilated using a 3.50mmNC EUPHORA 15 MM balloon with a maximum inflation pressureof 12 atmospheres. The final outcome was defined as successful. A coronary arteriolar vasodilator was administered as part of the intervention on this lesion. There was no residualstenosis following this intervention. The final FAUZIA flow was 3. Mid 100% Stent insertion was performed on the total occlusion inthe mid segment of the RCA. This was a de susy lesion. Thislesion was designated a type C high risk lesion based on ACC/AHA classification system. Primary prevention of restenosiswas the indication for stent insertion. A guidewire wasplaced across this lesion. Vessel flow pre intervention was TIMI0. Lesion length was 30mm. This lesion was severelycalcified. Stent insertion was accomplished through a 6 Fr. JR 4guide. The lesion was predilated with a 2.50mm EUPHORA 15 MMballoon with a maximum inflation pressure of 13 atmospheres. A premounted 2.75 x 38 mm [place] (MARIALUISA) was deployedwith a maximum inflation pressure of 12 atmospheres.Following stent deployment, the lesion was dilated using a 3.00mmNC EUPHORA 12 MM balloon with a maximum inflation pressureof 15 atmospheres. The final outcome was defined as successful. A coronary arteriolar vasodilator was administered as part of the intervention on this lesion. There was no residualstenosis following this intervention. The final FAUZIA flow was 3. Vascular Access: Vascular Access Management: Mechanical Compression of the right radial artery access sitewas performed. Dual Antiplatelet (DAPT) Recommendations: Drug eluting stent (MARIALUISA) inserted. P2Y12 Loading dose administered prior to arrival in the propagator laborer. Recommended anti-platelet/anti-thrombotic regimen: Start aspirin 81 mg daily now and continue for indefinitely. Start clopidogrel 75 mg daily now and continue for 12 months thenstop. These recommendations are made at the time of the intervention.Patient and provider preferences or a changing clinical situation mayrequire modification of this regimen. Consult [facility] [place] questions. The 1 year bleeding risk as calculated by the PRECISE DAPT score isLow risk. Conclusions: * Three vessel coronary artery disease (LAD, LCX and RCA) * Successful stent insertion of the mid RCA lesion * Successful stent insertion of the proximal RCA lesion * See Dual Antiplatelet (DAPT) Recommendations above Complications/Events: The patient had no complications during these procedures. Post Procedure Fluid Recommendations: IV fluid at 351 mL/hr for 4 hours for a total of 1,404 mL. These recommendations are made at the time of the procedure. Patient and provider preferences or a changing clinical situation may require modification of this regimen. Recommendations: Based upon the results of this procedure, it was recommended thatthe patient be managed with medical therapy. The attending physician was present for the entire procedure. Dr. Azul Rowley M.D. was present during the moderate sedation intraservice time as documented by the sedation nurse. Case time =00:46. Dr. Azul Rowley M.D. performed the coronary angiography, leftheart catheterization, stent insertion-coronary and IVUS # coronary. Azul Rowley M.D. Electronically Signed by: Azul Rowley M.D. Report Finalized: 06/14/2023 10:03 Report Last Ammended: 09/13/2023 11:46 Azul Mccoy MD CARDIAC CATH ORDERA BLES * EKG 12 Lead (06/04/2023 5:18 PM EDT) Ventricular rate 87 BPM MUSE SYSTEM Atrial Rate 87 BPM MUSE SYSTEM P-R Interval 180 ms MUSE SYSTEM QRS Duration 98 ms MUSE SYSTEM Q-T Interval 344 ms MUSE SYSTEM QTC Calculated (Bezet) 413 ms MUSE SYSTEM Calculated P [place] 50 degrees MUSE SYSTEM Calculated R [place] 37 degrees MUSE SYSTEM Calculated T [place] 52 degrees MUSE SYSTEM INTERPRETATION Normal sinus rhythm Inferior infarct (cited on or before 12-OCT-2018) Abnormal ECG When compared with ECG of 12-OCT-2018 11:06, No significant change was found Confirmed by MD Jose Cruz, Jr ([id number]) on 06/05/2023 1:16:03 PM MUSE SYSTEM 06/04/2023 5:18 PM EDT 06/05/2023 1:16 PM EDT Azul Mccoy MD ECG ORDERABLES MUSE SYSTEM documented in this encounter Visit Diagnoses Diagnosis STEMI (ST elevation myocardial infarction)- Primary Acute myocardial infarction, unspecified site, episode of care unspecified ST elevation myocardial infarction involving right coronary artery Acute myocardial infarction of inferoposterior wall, initial episode of care documented in this encounter Admitting Diagnoses Diagnosis STEMI (ST elevation myocardial infarction) Acute myocardial infarction, unspecified site, episode of care unspecified documented in this encounter Administered Medications Inactive Administered Medications - up to 3 most recent administrations Medication Order MAR Action Action Date Dose Rate Site acetaminophen (Tylenol) tablet 650 mg 650 mg, Oral, ONCE, 1 dose, On Mon06/06/23 at 0700, Maximum dose of acetaminophen is 4,000 mg from all sources in 24 hours. When ordered for pain, acetaminophen should be given even when other ordered pain medications are indicated., Routine Given 06/06/2023 6:15 AM EDT 650 mg acetaminophen (Tylenol) tablet 650 mg 650 mg, Oral, ONCE, 1 dose, On Mon06/06/23 at 2300, Maximum dose of acetaminophen is 4,000 mg from all sources in 24 hours. When ordered for pain, acetaminophen should be given even when other ordered pain medications are indicated., Routine Given 06/06/2023 10:18 PM EDT 650 mg aspirin EC tablet 81 mg 81 mg, Oral, DAILY, First dose on Mon06/05/23 at 0900, Until Discontinued, Recovery (Recovery-Hospital Unit), Routine Given 06/07/2023 8:22 AM EDT 81 mg Given 06/06/2023 8:16 AM EDT 81 mg Given 06/05/2023 9:00 AM EDT 81 mg atorvastatin (Lipitor) tablet 80 mg 80 mg, Oral, EVERY EVENING, First dose on Mon06/04/23 at 1930, Until Discontinued, Routine Given 06/06/2023 5:29 PM EDT 80 mg Given 06/05/2023 5:37 PM EDT 80 mg Given 06/04/2023 8:05 PM EDT 80 mg bisacodyL (Dulcolax) suppository 10 mg 10 mg, Rectal, DAILY PRN, Starting on Mon06/05/23 at 1929, Until Mon06/07/23 at 1528, Constipation, Give if no BM within last 24 hr and rectal fullness is reported or assessed. Give concomitantly with any scheduled bowel medications ordered. , Routine bisacodyl EC (Dulcolax) tablet 10 mg 10 mg, Oral, 2 TIMES DAILY PRN, Starting on Mon06/05/23 at 1929, Until Mon06/07/23 at 1528, Constipation, Give if no BM after 24 hr after prior interventions. BM expected in 6-8 hours. If BM desired sooner, use next ordered agent. Give concomitantly with any scheduled bowel medications ordered., Routine Given 06/06/2023 8:16 AM EDT 10 mg carvediloL (Coreg) tablet 6.25 mg 6.25 mg, Oral, 2 TIMES DAILY, First dose on Mon06/06/23 at 1145, Until Discontinued, Routine Given 06/07/2023 8:22 AM EDT 6.25 mg Given 06/06/2023 8:10 PM EDT 6.25 mg Given 06/06/2023 12:58 PM EDT 6.25 mg clopidogreL (Plavix) tablet 75 mg 75 mg, Oral, DAILY, First dose on Mon06/05/23 at 0900, Until Discontinued, Recovery (Recovery-Hospital Unit), Routine Given 06/07/2023 8:22 AM EDT 75 mg Given 06/06/2023 8:16 AM EDT 75 mg Given 06/05/2023 8:40 AM EDT 75 mg dextrose 10% infusion 250 mL, at 1,000 mL/hr, Intravenous, EVERY 15 MIN PRN, Starting on Mon06/04/23 at 1837, Until Mon06/07/23 at 1528, For BG 50-70 mg/dL: Oral treatment preferred: [...] insulin orders before administering the next dose. furosemide (Lasix) (10 mg/mL) injection 40 mg 40 mg, Intravenous, ONCE, 1 dose, On Mon06/05/23 at 1045 Given 06/05/2023 12:19 PM EDT 40 mg furosemide (Lasix) tablet 40 mg 40 mg, Oral, DAILY, First dose on Mon06/06/23 at 1145, Until Discontinued, Routine Given 06/06/2023 12:5 8 PM EDT 40 mg gabapentin (Neurontin) capsule 200 mg 200 mg, Oral, NIGHTLY, First dose (after last modification) on Mon06/05/23 at 0400, Until Discontinued, Routine Given 06/06/2023 8:10 PM EDT 200 mg Given 06/05/2023 8:15 PM EDT 200 mg Given 06/05/2023 3:10 AM EDT 200 mg glucagon (Glucagen) (1 mg/mL) injection solution 1 mg 1 mg, Intramuscular, EVERY 15 MIN PRN, Starting on Mon06/04/23 at 1837, Until Mon06/07/23 at 1528, Low blood sugar, For BG 50-70 mg/dL: [...] Buccal, EVERY 15 MIN PRN, Starting on Mon06/04/23 at 1837, Until Mon06/07/23 at 1528, Low blood sugar, For BG 50-70 mg/dL: [...] tube = 37.5 grams.), Routine heparin (porcine) (5,000 units/1 mL) subcutaneous injection 5,000 Units 5,000 Units, Subcutaneous, EVERY 8 HOURS SCHEDULED, First dose on Mon06/04/23 at 2200, Until Discontinued, Routine Given 06/07/2023 5:40 AM EDT 5,000 Unit s Given 06/06/2023 8:10 PM EDT 5,000 Units Given 06/06/2023 1:08 PM EDT 5,000 Units A bdominal Tissue insulin glargine-ygfn (Semglee) (100 unit/mL) subcutaneous injection vial 25 Units 25 Units, Subcutaneous, DAILY, First dose on Mon06/05/23 at 0900, Until Discontinued, Routine Given 06/07/2023 8:23 AM EDT 25 Units Given 06/06/2023 8:17 AM EDT 25 Units Ab dominal Tissue Given 06/05/2023 8:44 AM EDT 25 Units Le ft Arm insulin lispro (HumaLOG;Admelog) (100 unit/mL) subcutaneous injection vial 0-8 Units 0-8 Units, Subcutaneous, 3 TIMES DAILY PRN, Starting on Mon06/05/23 at 1244, Until Mon06/07/23 at 1528, with snacks, [employer] Give 1 unit for every 10 grams carbohydrate. Hold if not eating or if BG less than 70 mg/dL., Routine insulin lispro (HumaLOG;Admelog) (100 unit/mL) subcutaneous injection vial 0-8 Units 0-8 Units, Subcutaneous, 3 TIMES DAILY WITH MEALS, First dose on Mon06/05/23 at 1330, Until Discontinued, [employer] Give 1 unit for every 10 grams carbohydrate. Hold if not eating or if BG less than 70 mg/dL. , Routine Given 06/07/2023 8:23 AM EDT 1 Units Given 06/06/2023 5:44 PM EDT 6 Units Ab dominal Tissue Given 06/06/2023 1:00 PM EDT 5 Units Ab dominal Tissue insulin lispro (HumaLOG;Admelog) (100 unit/mL) subcutaneous injection vial 1-6 Units 1-6 Units, Subcutaneous, EVERY 4 HOURS SCHEDULED, First dose on Mon06/04/23 at 2000, Until Discontinued, CORRECTION BOLUS [1-6 Units] Moderate [...] 240 mg/dL in 2 hours., Routine Given 06/07/2023 11:38 AM EDT 3 Units Given 06/07/2023 8:33 AM EDT 1 Units Given 06/06/2023 8:11 PM EDT 2 Units lactulose (Chronulac) (0.67 gram/mL) oral liquid 20 g 20 g, Oral, DAILY PRN, Starting on Mon06/05/23 at 1929, Until Mon06/07/23 at 1528, Constipation, Give if no BM 24 hr after prior interventions or if BM is desired within 2 hr. Give concomitantly with any scheduled bowel medications ordered, Routine lactulose (Chronulac) (0.67 gram/mL) oral liquid 20 g 20 g, Oral, DAILY PRN, Starting on Mon06/05/23 at 1929, Until Mon06/07/23 at 1528, Constipation, Give an additional (2nd) dose of lactulose 2 hr after 1st dose if still no BM. Disregard if 1st dose of lactulose not ordered. Give concomitantly with any scheduled bowel medications ordered. , Routine Given 06/06/2023 3:10 AM EDT 20 g magnesium citrate oral liquid 296 mL 296 mL, Oral, ONCE PRN, 1 dose, Starting on Mon06/05/23 at 1929, Until Mon06/07/23 at 1528, Constipation, Give if no BM 2 hr after previous interventions. If 2 hr after mag citrate there is still no BM, see order for tap water enema, if placed. Give concomitantly with any scheduled bowel medications ordered., Routine melatonin tablet 6 mg 6 mg, Oral, NIGHTLY, First dose on Mon06/05/23 at 0030, Until Discontinued, Routine Given 06/06/2023 8:10 PM EDT 6 mg Given 06/05/2023 8:16 PM EDT 6 mg Given 06/05/2023 12:31 AM EDT 6 mg pantoprazole EC (Protonix) tablet 40 mg 40 mg, Oral, DAILY, First dose on Mon06/04/23 at 1930, Until Discontinued Given 06/07/2023 8:22 AM EDT 40 mg Given 06/06/2023 8:16 AM EDT 40 mg Given 06/05/2023 8:40 AM EDT 40 mg perflutren protein-A microsphers (Optison) (0.22 mg/mL) injection 0.5 mL 0.5 mL, Intravenous, ONCE PRN, 1 dose, Starting on Mon06/05/23 at 1129, Until Mon06/05/23 at 1129, for enhancement of sub-optimal echo images, Echo Lab (Intra-Procedure), Routine Given 06/05/2023 11:29 AM EDT 1.8 mLs polyethylene glycoL (Miralax) packet 17 g 17 g, Oral, DAILY PRN, Starting on Mon06/05/23 at 1929, Until Mon06/07/23 at 1528, Constipation, Give if no BM within last 24 hr. Give concomitantly with any scheduled bowel medications ordered. , Routine Given 06/06/2023 8:16 AM EDT 17 g Given 06/06/2023 3:10 AM EDT 17 g senna-docusate (Pericolace) 8.6-50 mg per tablet 2 tablet 2 tablet, Oral, 2 TIMES DAILY, First dose on Mon06/05/23 at 2100, Until Discontinued, Hold for loose stool. , Routine Given 06/06/2023 9:00 AM EDT 2 tablets Given 06/05/2023 9:00 PM EDT 2 tablets sodium chloride 0.9 % (flush) (BD PosiFlush Normal Saline 0.9) flush 5 mL 5 mL, Intravenous, 2 TIMES DAILY, First dose on Mon06/04/23 at 2100, Until Discontinued, Routine Given 06/07/2023 8:24 AM EDT 5 mLs Given 06/06/2023 8:10 PM EDT 5 mLs Given 06/06/2023 8:16 AM EDT 10 mLs sodium chloride 0.9% infusion 100 mL/hr, Intravenous, CONTINUOUS, Starting on Mon06/04/23 at 1745, Until Mon06/04/23 at 2344, Recovery (Recovery-Hospital Unit) New Bag 06/04/2023 5:54 PM EDT 100 mL/hr 100 mL /hr documented in this encounter Active and Recently Administered Medications Times are shown in EDT. Scheduled Medication Order 06/05/2023 06/06/2023 06/07/2023 acetaminophen (Tylenol) tablet 650 mg (COMPLETED) 650 mg, Oral, ONCE, 1 dose, On Mon06/06/23 at 0700, Maximum dose of acetaminophen is 4,000 mg from all sources in 24 hours. When ordered for pain, acetaminophen should be given even when other ordered pain medications are indicated., Routine 06 (Given - Provider: Janice Manzano RN - Comment: headache) acetaminophen (Tylenol) tablet 650 mg (COMPLETED) 650 mg, Oral, ONCE, 1 dose, On Mon06/06/23 at 2300, Maximum dose of acetaminophen is 4,000 mg from all sources in 24 hours. When ordered for pain, acetaminophen should be given even when other ordered pain medications are indicated., Routine 2217 (Given - Provider: Jacqui Feliciano RN) aspirin EC tablet 81 mg 81 mg, Oral, DAILY, First dose on Mon06/05/23 at 0900, Until Discontinued, Recovery (Recovery-Hospital Unit), Routine 0900 (Given - Provider: Susan Hernandez, DELL) 0816 (Given - Provider: Susan Hernandez RN) 08 (Given - Provider: Alice Villalta RN) atorvastatin (Lipitor) tablet 80 mg 80 mg, Oral, EVERY EVENING, First dose on Mon06/04/23 at 1930, Until Discontinued, Routine 1737 (Given - Provider: Susan Hernandez RN) 1729 (Given - Provider: Susan Hernandez RN) carvediloL (Coreg) tablet 6.25 mg 6.25 mg, Oral, 2 TIMES DAILY, First dose on Mon06/06/23 at 1145, Until Discontinued, Routine 1258 (Given - Provider: Susan Hernandez RN)2009 (Given - Provider: Jacqui Feliciano RN) 0822 (Given - Provider: Alice Villalta, DELL) clopidogreL (Plavix) tablet 75 mg 75 mg, Oral, DAILY, First dose on Mon06/05/23 at 0900, Until Discontinued, Recovery (Recovery-Hospital Unit), Routine 0840 (Given - Provider: Susan Hernandez RN) 0816 (Given - Provider: Susan Hernandez RN) 0822 (Given - Provider: Alice Villalta RN) furosemide (Lasix) (10 mg/mL) injection 40 mg (COMPLETED) 40 mg, Intravenous, ONCE, 1 dose, On Mon06/05/23 at 1045 1219 (Given - Provider: Susan Hernandez RN) furosemide (Lasix) tablet 40 mg (CANCELED) 40 mg, Oral, DAILY, First dose on Mon06/06/23 at 1145, Until Discontinued, Routine 1258 (Given - Provider: Susan Hernandez RN) gabapentin (Neurontin) capsule 200 mg 200 mg, Oral, NIGHTLY, First dose (after last modification) on Mon06/05/23 at 0400, Until Discontinued, Routine 0310 (Given - Provider: Janice Manzano RN)2014 (Given - Provider: Janice Manzano RN) 2009 (Given - Provider: Jacqui Feliciano RN) heparin (porcine) (5,000 units/1 mL) subcutaneous injection 5,000 Units 5,000 Units, Subcutaneous, EVERY 8 HOURS SCHEDULED, First dose on Mon06/04/23 at 2200, Until Discontinued, Routine 0628 (Given - Provider: Janice Manzano RN)1535 (Given - Provider: Susan Hernandez RN)2303 (Given - Provider: Janice Manzano RN - Comment: space 8hr from last dose) 0604 (Given - Provider: Janice Manzano RN)1308 (Given - Provider: Susan Hernandez RN)2009 (Given - Provider: Jacqui Feliciano, RN - Comment: [facility]) 0540 (Given - Provider: Jacqui Feliciano, RN) insulin glargine-ygfn (Semglee) (100 unit/mL) subcutaneous injection vial 25 Units 25 Units, Subcutaneous, DAILY, First dose on Mon06/05/23 at 0900, Until Discontinued, Routine 0844 (Given - Provider: Susan Hernandez RN) 0817 (Given - Provider: Susan Hernandez RN) 0823 (Given - Provider: Alice Villalta, DELL) insulin lispro (HumaLOG;Admelog) (100 unit/mL) subcutaneous injection vial 0-8 Units 0-8 Units, Subcutaneous, 3 TIMES DAILY WITH MEALS, First dose on Mon06/05/23 at 1330, Until Discontinued, [employer] Give 1 unit for every 10 grams carbohydrate. Hold if not eating or if BG less than 70 mg/dL. , Routine 1330 (Not Given - Provider: Susan Hernandez RN - Reason: See comment - Comment: duplicate order)1739 (Given - Provider: Susan Hernandez RN) 0800 (Not Given - Provider: Susan Hernandez RN - Reason: Order parameters not met - Comment: not eating, not feeling well)1300 (Given - Provider: Susan Hernandez RN)1744 (Given - Provider: Susan Hernandez RN) 0823 (Given - Provider: Alice Villalta, DELL)1200 (Not Given - Provider: Alice Villalta RN - Reason: See comment - Comment: didnt eat from menu, couldnt count carbs) insulin lispro (HumaLOG;Admelog) (100 unit/mL) subcutaneous injection vial 1-6 Units(Linked Group 1) 1-6 Units, Subcutaneous, EVERY 4 HOURS SCHEDULED, First dose on Mon06/04/23 at 2000, Until Discontinued, CORRECTION BOLUS [1-6 Units] Moderate [...] than 240 mg/dL in 2 hours., Routine 0310 (Given - Provider: Janice Manzano RN)0843 (Given - Provider: Susan Hernandez RN)1220 (Given - Provider: Susan Hernandez, DELL)1338 (Given - Provider: Susan Hernandez RN)1535 (Given - Provider: Susan Hernandez RN)1946 (Given - Provider: Janice Manzano RN) 0000 (Not Given - Provider: Janice Manzano RN - Reason: Order parameters not met)0310 (Given - Provider: Janice Manzano RN)0817 (Given - Provider: Susan Hernandez, DELL)1259 (Given - Provider: Susan Hernandez, DELL)1729 (Given - Provider: Susan Hernandez, DELL)2010 (Given - Provider: Jacqui Feliciano RN) 0000 (Not Given - Provider: Jacqui Feliciano RN - Reason: Order parameters not met)0400 (Not Given - Provider: Jacqui Feliciano RN - Reason: Order parameters not met)0833 (Given - Provider: Alice Villalta, DELL)1138 (Given - Provider: Alice Villalta RN) melatonin tablet 6 mg 6 mg, Oral, NIGHTLY, First dose on Mon06/05/23 at 0030, Until Discontinued, Routine 003 (Given - Provider: Meena Newberry RN)2016 (Given - Provider: Janice Manzano RN) 2009 (Given - Provider: Jacqui Feliciano, DELL) pantoprazole EC (Protonix) tablet 40 mg 40 mg, Oral, DAILY, First dose on Mon06/04/23 at 1930, Until Discontinued 0840 (Given - Provider: Susan Hernandez RN) 0816 (Given - Provider: Susan Hernandez, DELL) 0822 (Given - Provider: Alice Villalta, DELL) senna-docusate (Pericolace) 8.6-50 mg per tablet 2 tablet 2 tablet, Oral, 2 TIMES DAILY, First dose on Mon06/05/23 at 2100, Until Discontinued, Hold for loose stool. , Routine 2100 (Given - Provider: Janice Manzano, DELL) 0900 (Given - Provider: Susan Hernandez RN)2100 (Not Given - Provider: Jacqui Feliciano RN - Reason: Patient/family refused) 0900 (Not Given - Provider: Alice Villalta, DELL - Reason: Patient/family refused) sodium chloride 0.9 % (flush) (BD PosiFlush Normal Saline 0.9) flush 5 mL 5 mL, Intravenous, 2 TIMES DAILY, First dose on Mon06/04/23 at 2100, Until Discontinued, Routine 0841 (Given - Provider: Susan Hernandez RN)2014 (Given - Provider: Janice Manzano RN) 0816 (Given - Provider: Susan Hernandez RN)2009 (Given - Provider: Jacqui Feliciano RN) 0824 (Given - Provider: Alice Villalta, DELL) PRN Medication Order 06/05/2023 06/06/2023 06/07/2023 bisacodyL (Dulcolax) suppository 10 mg(Linked Group 2) 10 mg, Rectal, DAILY PRN, Starting on Mon06/05/23 at 1929, Until Mon06/07/23 at 1528, Constipation, Give if no BM within last 24 hr and rectal fullness is reported or assessed. Give concomitantly with any scheduled bowel medications ordered. , Routine bisacodyl EC (Dulcolax) tablet 10 mg(Linked Group 2) 10 mg, Oral, 2 TIMES DAILY PRN, Starting on Mon06/05/23 at 1929, Until Mon06/07/23 at 1528, Constipation, Give if no BM after 24 hr after prior interventions. BM expected in 6-8 hours. If BM desired sooner, use next ordered agent. Give concomitantly with any scheduled bowel medications ordered., Routine 0816 (Given - Provider: Susan Hernandez RN) dextrose 10% infusion(Linked Group 3) 250 mL, at 1,000 mL/hr, Intravenous, EVERY 15 MIN PRN, Starting on Mon06/04/23 at 1837, Until Mon06/07/23 at 1528, For BG 50-70 mg/dL: Oral treatment preferred: [...] Intramuscular, EVERY 15 MIN PRN, Starting on 06/04/23 at 1837, Until Mon06/07/23 at 1528, Low blood sugar, For BG 50-70 mg/dL: [...] Buccal, EVERY 15 MIN PRN, Starting on 06/04/23 at 1837, Until Mon06/07/23 at 1528, Low blood sugar, For BG 50-70 mg/dL: [...] weight of tube = 37.5 grams.), Routine insulin lispro (HumaLOG;Admelog) (100 unit/mL) subcutaneous injection vial 0-8 Units 0-8 Units, Subcutaneous, 3 TIMES DAILY PRN, Starting on Mon06/05/23 at 1244, Until Mon06/07/23 at 1528, with snacks, [employer] Give 1 unit for every 10 grams carbohydrate. Hold if not eating or if BG less than 70 mg/dL., Routine lactulose (Chronulac) (0.67 gram/mL) oral liquid 20 g(Linked Group 2) 20 g, Oral, DAILY PRN, Starting on Mon06/05/23 at 1929, Until Mon06/07/23 at 1528, Constipation, Give if no BM 24 hr after prior interventions or if BM is desired within 2 hr. Give concomitantly with any scheduled bowel medications ordered, Routine lactulose (Chronulac) (0.67 gram/mL) oral liquid 20 g(Linked Group 2) 20 g, Oral, DAILY PRN, Starting on Mon06/05/23 at 1929, Until Mon06/07/23 at 1528, Constipation, Give an additional (2nd) dose of lactulose 2 hr after 1st dose if still no BM. Disregard if 1st dose of lactulose not ordered. Give concomitantly with any scheduled bowel medications ordered. , Routine 0310 (Given - Provider: Janice Manzano RN) lidocaine (Xylocaine) 1% (10 mg/mL) injection 3 mg 3 mg (0.3 mL), Subcutaneous, ONCE PRN, 1 dose, Starting on Mon06/04/23 at 1837, Until Mon06/07/23 at 1528, for discomfort with PIV insertion, Routine magnesium citrate oral liquid 296 mL(Linked Group 2) 296 mL, Oral, ONCE PRN, 1 dose, Starting on Mon06/05/23 at 1929, Until Mon06/07/23 at 1528, Constipation, Give if no BM 2 hr after previous interventions. If 2 hr after mag citrate there is still no BM, see order for tap water enema, if placed. Give concomitantly with any scheduled bowel medications ordered., Routine nitroGLYcerin (Nitrostat) disintegrating tablet 0.4 mg 0.4 mg, Sublingual, EVERY 5 MIN PRN, Starting on Mon06/04/23 at 1837, Until Mon06/07/23 at 1528, Chest pain, May repeat every 5 minutes for a total of three doses. Notify provider if chest pain not relieved with nitroglycerin. Do not administer nitroglycerin if the patient has received or taken phosphodiesterase (PDE-5) inhibitors such as sildenafil, tadalafil or vardenafil within the last 24 to 72 hours., Routine perflutren protein-A microsphers (Optison) (0.22 mg/mL) injection 0.5 mL (COMPLETED) 0.5 mL, Intravenous, ONCE PRN, 1 dose, Starting on Mon06/05/23 at 1129, Until Mon06/05/23 at 1129, for enhancement of sub-optimal echo images, Echo Lab (Intra-Procedure), Routine 1129 (Given - Provider: Phuong Cornell) polyethylene glycoL (Miralax) packet 17 g(Linked Group 2) 17 g, Oral, DAILY PRN, Starting on Mon06/05/23 at 1929, Until Mon06/07/23 at 1528, Constipation, Give if no BM within last 24 hr. Give concomitantly with any scheduled bowel medications ordered. , Routine 0310 (Given - Provider: Janice Manzano, RN)0816 (Given - Provider: Susan Hernandez, DELL) sodium chloride 0.9 % (flush) (BD PosiFlush Normal Saline 0.9) flush 5-20 mL 5-20 mL, Intravenous, EVERY 1 MIN PRN, Starting on Mon06/04/23 at 1837, Until Mon06/07/23 at 1528, flush, Flush pertains to all indwelling lines. Flush per protocol found in the job aid using the link provided on this medication record., Routine Linked Groups Order Group 1: POCT Fingerstick Glucose (CANCELED) Routine, EVERY 4 HOURS, First occurrence on Mon06/04/23 at 1840, Until Specified, Consider choosing EVERY 4 HOURS as frequency for: - Type 1 Diabetes - At least 24 hours after coming off an insulin drip - At least 24 hours after admission for DKA - Hypoglycemia unawareness - Patients who are otherwise unstable Select the same frequency for the correction bolus insulin order And insulin lispro (HumaLOG;Admelog) (100 unit/mL) subcutaneous injection vial 1-6 UnitsJump to med 1-6 Units, Subcutaneous, EVERY 4 HOURS SCHEDULED, First dose on Mon06/04/23 at 2000, Until Discontinued, CORRECTION BOLUS [1-6 Units] Moderate [...] 17 g, Oral, DAILY PRN, Starting on Mon06/05/23 at 1929, Until Mon06/07/23 at 1528, Constipation, Give if no BM within last 24 hr. Give concomitantly with any scheduled bowel medications ordered. , Routine And bisacodyL (Dulcolax) suppository 10 mgJump to med 10 mg, Rectal, DAILY PRN, Starting on Mon06/05/23 at 1929, Until Mon06/07/23 at 1528, Constipation, Give if no BM within last 24 hr and rectal fullness is reported or assessed. Give concomitantly with any scheduled bowel medications ordered. , Routine And bisacodyl EC (Dulcolax) tablet 10 mgJump to med 10 mg, Oral, 2 TIMES DAILY PRN, Starting on Mon06/05/23 at 1929, Until Mon06/07/23 at 1528, Constipation, Give if no BM after 24 hr after prior interventions. BM expected in 6-8 hours. If BM desired sooner, use next ordered agent. Give concomitantly with any scheduled bowel medications ordered., Routine And lactulose (Chronulac) (0.67 gram/mL) oral liquid 20 gJump to med 20 g, Oral, DAILY PRN, Starting on Mon06/05/23 at 1929, Until Mon06/07/23 at 1528, Constipation, Give if no BM 24 hr after prior interventions or if BM is desired within 2 hr. Give concomitantly with any scheduled bowel medications ordered, Routine And lactulose (Chronulac) (0.67 gram/mL) oral liquid 20 gJump to med 20 g, Oral, DAILY PRN, Starting on Mon06/05/23 at 1929, Until Mon06/07/23 at 1528, Constipation, Give an additional (2nd) dose of lactulose 2 hr after 1st dose if still no BM. Disregard if 1st dose of lactulose not ordered. Give concomitantly with any scheduled bowel medications ordered. , Routine And magnesium citrate oral liquid 296 mLJump to med 296 mL, Oral, ONCE PRN, 1 dose, Starting on Mon06/05/23 at 1929, Until Mon06/07/23 at 1528, Constipation, Give if no BM 2 hr after previous interventions. If 2 hr after mag citrate there is still no BM, see order for tap water enema, if placed. Give concomitantly with any scheduled bowel medications ordered., Routine And Tap water enema (CANCELED) Routine, DAILY PRN, Starting on Mon06/05/23 at 1929, Until Specified, Give if no BM in at least 24 hr and all other ordered bowel regimen medications have been unsuccessful. Give concomitantly with any scheduled bowel medications ordered. Group 3: glucose (Glutose) 40% oral geLJump to med 15-30 g of glucose, Buccal, EVERY 15 MIN PRN, Starting on Mon06/04/23 at 1837, Until Mon06/07/23 at 1528, Low blood sugar, For BG 50-70 mg/dL: [...] Intravenous, EVERY 15 MIN PRN, Starting on Mon06/04/23 at 1837, Until Mon06/07/23 at 1528, For BG 50-70 mg/dL: Oral treatment preferred: [...] Intramuscular, EVERY 15 MIN PRN, Starting on 06/04/23 at 1837, Until Mon06/07/23 at 1528, Low blood sugar, For BG 50-70 mg/dL: [...] Routine documented in this encounter Care Teams Heat Regulator Relationship 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
--- OUTSIDE RECORDS SUMMARY | 2024-01-04 13:17 | XMS_ITS | Encounter Summary ---
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 Role Phone Bandar Hahn MD Primary Care Provider [phone] Reason for Visit * Auth/Cert (Routine) Specialty Diagnoses / Procedures Referred By Martha t Referred To Contact Diagnoses ASCVD (arteriosclerotic cardiovascular disease) ASCVD (arteriosclerotic cardiovascular disease) [I25.10] Procedures PRG CATH PLMT LEFT HEART CATH & ARTS W/INJ & ANGIO IMG S&I CARDIAC CATHETERIZATION CORONARY ANGIOGRAPHY; [facility],POSSIBLE PCI (WRVU 5.6) Azul Rowley MD [facility] [place] [address] [facility] Referral ID Status Reason Start Date Expiration Date Visits Re quested Visits Authorized [id number] 1 1 Encounter Details Date Type Department Care Team (Late st Contact Info) Description 08/04/2023 8:30 AM EDT - 08/04/2023 10:00 AM EDT [place] [id number] Azul Rowley MD [facility] [place] [address] CARDIAC CATHETERIZATION Social History Tobacco Use Types Packs/Day Years Used Date Smoking Tobacco: Former Cigarettes 1 10 Smokeless Tobacco: Never Tobacco Cessation:Counseling Given: Not Answered Alcohol Use Standard Drinks/Week Comments Not Currently 7 (1 standard drink = 0.6 oz pur e alcohol) rarely [facility] Utilities Answer Date Recorded In [...] in a usp (including now)? No 06/05/2023 DH IPV Inpatient [...] Sign Reading Time Taken Comments Blood Pressure 172/92 08/04/2023 9:47 AM EDT Pulse 85 08/04/2023 9:47 AM EDT Temperature 36.6 ??C (97.9 ??F) 08/04/2023 8:03 AM ED T Respiratory Rate 16 08/04/2023 9:47 AM EDT Oxygen Saturation 99% 08/04/2023 9:47 AM EDT Inhaled Oxygen Concentration - - Weight 121.2 kg (267 lb 4.8 oz) 08/04/2023 8:03 AM EDT Height 177.8 cm (5' 10) 08/04/2023 8:03 AM EDT Body Mass Index 38.35 08/04/2023 8:03 AM EDT documented in this encounter Discharge Summaries * Olga Chavarria PA - 08/04/2023 11:04 AM EDT Images from the original note were not included. Discharge Summary Patient Name: Hayden Russo Patient Age: 47 y.o. Language: Dutch Race: White Ethnicity: Not nor Admit date: 08/04/23 Discharge date and time: 08/04/23 1100 Attending Physician: Azul Rowley MD Discharge Physician: GLENIS Ariza; Azul Rowley MD Follow-up Recommendations for Providers: - dual antiplatelet regimen as follows: - aspirin 81 mg daily lifelong - prasugrel 10 mg po qd for 12 months - recommend follow up with cardiology in 4 weeks with Olga Chavarria - consider CABG bypass surgery in the future, vs PCI of LCX ISR - referral to endocrinology for DM management - routine monitoring of BP and HR Inpatient Provider Contact Information: GLENIS Puentes Pager [phone] Discharge Diagnoses (Hospital Problems) and Secondary Diagnoses (Chronic Problems): CAD s/p PCI to RCA ostium Problem list: Patient Active Problem List Diagnosis Code Acute ST elevation myocardial infarction (STEMI) of inferior wall I21.19 Diabetes mellitus E11.9 Hypertension I10 STEMI (ST elevation myocardial infarction) I21.3 CAD (coronary artery disease) I25.10 Operations/Major Procedures: Operations: Procedure(s): CARDIAC CATHETERIZATION CORONARY ANGIOGRAPHY; [facility],POSSIBLE PCI History of Presentation: Hayden Russo is a 47 y.o. male who presents for planned PCI of the LCX of previously placed stent with ISR. He has a PMH of ASCVD with recent PCI to the RCA in the setting of STEMI and prior stent to LCX with prior NC. Referred for cardiac catheterization for evaluation of intracardiac filling pressures and coronary artery disease. There have not been any changes in health status since last seen in clinic. No recent or current illnesses. Patient denies fevers or chills. Patient denies any hematochezia, melena, hematemesis, intraabdominal bleeding, or intracranial bleeding. Planned/pending surgeries: none Diabetic medications: insulin pen Current antiplatelets/anticoagulants: aspirin and plavix NPO status: yes Hospital Course: This 47 y.o. male is admitted with a chief complaint of CAD s/p PCI. He was admitted to the [facility] post PCI for monitoring and recovery. He has a history of DM with elevated HA1c and fasting/normal BG with CKD and HTN. I have reviewed the available records, interviewed and examined the patient. He was monitoring for post PCI for IV hydration, pain management, access site management in the setting of anticoagulation, serial cardiac biomarker monitoring, telemetry monitoring, evaluation of their medical condition, and cardiac rehabilitation. ROS/PMHx/Fam Hx/Soc Hx: Reviewed, see outpatient note. Functional and Cognitive Status: Independent in ALDs and IADLs, A&O x 3, at baseline Important Studies and Lab Data: See separate Cath Report Pending Studies and Lab Data: None Brief Op Note: Brief Op Note: Preliminary Cardiac Catheterization Procedure Note: Patient Name: Hayden Russo : [id number] MR#: [id number] Case Date: 08/04/2023 Food Service: Surgeons and Role: * Azul Rowley MD - Primary * Olga Chavarria PA - Physician Director Power Preoperative diagnosis: ASCVD (arteriosclerotic cardiovascular disease) [I25.10] Postoperative diagnosis: * ASCVD * Procedure(s) performed: [facility] IVUS Stent insertion coronary Balloon angioplasty Access: 6 Fr RRA provided good access for the [facility] and coronary angiogram A time-out was conducted prior to the start of the procedure to verify the correct patient and procedure, procedure location, and all relevant critical information. Preliminary findings: This is a 47 year old diabetic, hypertension patient with known CKD baseline Cr of 2.4. He presented today for a planned LCX intervention to a known ISR lesion in his LCX. He is 3 months post-RCA STEMI where we stented the RCA with 2 MARIALUISA with good angiographic result. Today, upon initial diagnosticangiogram of the LCX in preparation for the PCI, we noticed there were still collaterals filling the distal RCA despite recent stenting back in April during his STEMI. He states he has been faithful on DAPT without any recent missed doses. As a result, we traded our EBU guide for a JR 4 diagnostic catheter to look at the RCA and we noticed that the stents placed back in April were closed near theostium/proximal aspect of the coronary vessel. As a result, we wired the lesion with a run through to start which did not travel and then used a moe black with a microcatheter support. We were able to get into the distal vessel in the true lumen and then advanced a tekaru balloon followed by a SC euphora balloon. 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 We ultimately were able to open the vessel using a wolverine cutting balloon. We opted to stent the ostium and proximal vessel as there appeared to be a small dissection prior to the previously placed stent. We used 3.5 x 24 mm SYNERGY in the ostium. We switched him to prasugrel andloaded him in the laboratory technical specialist with this. We continued to balloon the vessel with a 3.5 mm NC euphora which resulted in FAUZIA 3 flow. We again put an IVUS catheter down which showed good expansion and residual disease in the distal bifurcation which was a small vessel. We did not perform further stenting to the distal vessel in an effort to give him potential targets for future open bypass revascularization. This patient has a very elevated HA1c and uncontrolled diabetes despite insulin. We will continue him on aspirin and prasugrel and plan for him to meet with a cardiac surgeon to discuss CABG in the setting of diabetic coronary disease, CKD and prior ISR. He will be admitted to the [facility] for monitoring and observation with potential for DC today. The patient tolerated the procedures smoothly and was transferred from the cardiac catheterization lab to the next level of care in stable condition. No evident early complications. Full report to follow. Discharge Conditions/Prognosis: Good Discharge to: Home Updated Allergies/ADRs: No Known Allergies Immunizations Given this Hospitalization: None given this hospitalizations Discharge Medications: Smoking Status at Discharge: Social History Tobacco Use Smoking Status Never Smoker Smokeless Tobacco Never Used Instructions Given to Patient at Discharge: Patient Instructions Discharge Instructions following cardiac catheterization Cardiology Instructions Call your doctor if you experience: Chest pain, dyspnea, pain or swelling in legs occurs. If you have non-emergent questions between now and the time of your follow up appointments: - During 8am-5pm Monday through Monday call [phone] to speak with a nurse in the cardiology clinic - All other times call [phone] and ask to speak to the seo intern erp consultant. MEDICATIONS Your Medications New Medications Dose Details prasugreL 10 mg tablet Commonly known as: Effient Take 1 tablet by mouth daily. Start taking on: August 05, 2023 10 mg Quantity: 90 tablet Refills: 3 Continued [...] CHECK GLUCOSE THREE TIMES DAILY Refills: 0 carvediloL 6.25 mg tablet Commonly known as: Coreg Take 1 tablet by mouth 2 times daily. 6.25 mg Quantity: 60 tablet Refills: 3 humaLOG KwikPen 100 unit/mL Insulin Pen INJECT [...] Quantity: 90 tablet Refills: 3 STOPPED Medications clopidogreL 75 mg tablet Commonly known as: Plavix You have been prescribed prasugrel which you must take for at least 6-12 months as well as aspirin for lifetime to help prevent clots forming inside of your stent. Do not stop this without talking to your charge operator. You should be taking a statin medication to prevent further blockages from forming inside your heart arteries Return to work/ usual activities: 1 week, as tolerated. Do not lift anything greater than 1 gallon for milk for 1 week You can shower the day after your procedure, but don't take any tub baths or soak in pools for 1 week after your procedure. Exercise: We strongly recommend that you enroll with a cardiac rehab program. If you have not had the opportunity to meet with one of our cardiac rehab nurses in the hospital, one will call you in the next fewdays to discuss options for rehab. This is a supervised exercise program that has been shown to improve quality of life and outcomes after undergoing coronary interventional procedures. In the meantime, we recommend moderate activity (walking, housework, treadmill) to prevent deconditioning. Driving: No driving for 48 hours after catheterization. Follow up Appointments: Return in about 4 weeks (around 09/01/2023). You recently [place] cardiac [place] [facility] Stents were placed in RCA. As a result, we will prescribe to you Aspirin 81 mg (baby aspirin) daily for life as well as Prasugrel for 12 months. We would like you to keep the right wrist clean and dry for the next 24 hours. You may shower but please avoid taking a bath for the next 2-3 days. We would like you to perform light duty around the house only, with avoidance of heavy exertion for the next week. If you start to experience any chest pain, nausea, vomiting, jaw pain, arm pain or back pain, please present to an emergency room. General Instructions None Future Appointments and Orders GLENIS Puentes Interventional Cardiology Date: 08/04/23 Time: 1300 [facility] Pager: [phone] documented in this encounter Discharge Instructions * Patient Instructions* Olga Chavarria PA - 08/04/2023 10:57 AM EDT Images from the original note were not included. Details of today's procedure You just underwent a cardiac catheterization [place] [facility] We placed stent(s) in your coronary arteries which feed the heart with blood. You will have a follow up with me on 09/12/23 (GLENIS Ariza) As a result, you will need to be on two medications: Baby aspirin (81 mg) for the rest of your life and Prasugrel 10 mg po qd for the next 12 months. Taking both of these medications everyday is very important. Please do not miss a dose. Post catheterization recommendations: Post catheterization recommendations: Try to avoid bending your wrist for the first 12-24 hours after the procedure to allow the artery to fully heal. Do not participate in active sports for 48 hours. Do not lift anything greater than 5 lbs. Take the dressing off of the catheter insertion site the morning following the procedure. Leave thesite open to air. If the site is oozing you may cover it with a band aid. You may take a shower if you wish. Look for signs of infection over the next several days. Do not take a bath or soak in a hot tub for 3 days. Please keep a close watchful eye on the site for bleeding or bruising, if you develop active bleeding that will not stop, you should put your hand over the opening in the artery or vein and hold firmpressure for 15 minutes, if it does not stop, please call EMS or go to the emergency department; ifyou develop bruising on the skin, this is normal and should subside, if you are concerned it is notimproving, please call us at [phone]. Expect some mild tenderness over the area where the catheter was inserted. You will notice this after the local anesthetic (numbing medicine) wears off. This should improve during the 24-48 hours after the procedure. You may use acetaminophen (tylenol) if needed. Contact your doctor if the discomfort worsens. Please caution and limit physical activity or exercise for the next 3 days, perform only light duty. Please follow up with your PCP in 2-4 weeks. Follow up with your charge operator in 2-4 weeks after procedure. If you have further questions about diet, exercise, and other details about your heart disease, a terrific resource is cardiosmart.org. Search under topics and find coronary artery disease. Also,check out the Health Living section. If there are non emergent questions, please contact [phone] #[phone]. If there are emergency questions at night or over the weekend, call the seo intern erp consultant at [phone]. Radial Access for Heart Cath Problems to Watch For: If there is bright red blood flowing from the catheter insertion area: *stop what you are doing *hold pressure steadily on the area for 15 minutes *call for help *if the bleeding does not stop in 15 minutes call 911 for an ambulance. If there is swelling with black and blue color at the catheter insertion site, there may be bleeding inside. Contact the doctor if there is any increase in size. Look at the insertion site for the first few days at home. Signs of infection are: *redness *swelling *yellow, white, green or brown foul smelling drainage. *increased soreness If you think there is an infection, take your temperature. Then call your doctor. The limb on the side where you had your catheterization should look and feel normal in color, sensation, and temperature. If your hand or fingers become cool, pale, blue or change color contact your doctor. If you are having numbness or tingling in your fingers or hand contact your doctor. * Attachments The following attachments cannot be sent through Care Everywhere. * PCI (Percutaneous Coronary Intervention): General Info (Dutch) * PCI (Percutaneous Coronary Intervention): Post-op (Dutch) documented in this encounter Medications at Time [...] GLUCOSE THREE TIMES DAILY . 11 11/01/2018 prasugreL (Effient) 10 mg tablet Take 1 [...] as of this encounter Progress Notes * John Mccullough RN - 08/04/2023 4:48 PM EDT [facility] Short Stay Unit Discharge Note All relevant discharge milestones have been met by the patent. After Visit Summary and discharge teaching reviewed with the patient. IV access has been discontinued. All personal belongings have been returned to the patient/family upon their departure from the unit. Patient has been discharged to home The patient has been discharged without VNA services. documented in this encounter H&P Notes * Olga Chavarria PA - 08/04/2023 10:54 AM EDT Images from the original note were not included. Post-PCI Admission History and Physical PCP: Bandar Hahn MD Attending: Azul Rowley MD Date of Admission: 08/04/2023 Admission Diagnosis: Coronary Artery Disease: S/p PCI to ostial RCA for ISR of recent placed MARIALUISA back in April 2023 Problem List: Patient Active Problem List Diagnosis ','CAD (coronary artery disease) STEMI (ST elevation myocardial infarction) Diabetes mellitus Hypertension Acute ST elevation myocardial infarction (STEMI) of inferior wall Overview Note: Cardiac Catheterization/ PCI (STEMI presentation) 10/12/18: Conclusions: * Three vessel coronary artery disease (LAD, LCX and RCA) * Elevated left ventricular end diastolic pressure * Successful stent insertion of the distal RCA lesion * Successful stent insertion of the mid LCX lesion HPI: This 47 y.o. male is admitted with a chief complaint of CAD s/p PCI. Please see my brief op note for further details below I have reviewed the available records, interviewed and examined the patient. This patient is admitted post PCI for IV hydration, pain management, access site management in the setting of anticoagulation, serial cardiac biomarker monitoring, telemetry monitoring, evaluation oftheir medical condition, and cardiac rehabilitation. ROS/PMHx/Fam Hx/Soc Hx: Reviewed, see outpatient note. Brief Op Note: Preliminary Cardiac Catheterization Procedure Note: Patient Name: Hayden Russo : [id number] MR#: [id number] Case Date: 08/04/2023 Food Service: Surgeons and Role: * Azul Rowley MD - Primary * Olga Chavarria PA - Physician Director Power Preoperative diagnosis: ASCVD (arteriosclerotic cardiovascular disease) [I25.10] Postoperative diagnosis: * ASCVD * Procedure(s) performed: [facility] IV[facility] Stent insertion coronary Balloon angioplasty Access: 6 Fr RRA provided good access for the [facility] and coronary angiogram A time-out was conducted prior to the start of the procedure to verify the correct patient and procedure, procedure location, and all relevant critical information. Preliminary findings: This is a 47 year old diabetic, hypertension patient with known CKD baseline Cr of 2.4. He presented today for a planned LCX intervention to a known ISR lesion in his LCX. He is 3 months post-RCA STEMI where we stented the RCA with 2 MARIALUISA with good angiographic result. Today, upon initial diagnosticangiogram of the LCX in preparation for the PCI, we noticed there were still collaterals filling the distal RCA despite recent stenting back in April during his STEMI. He states he has been faithful on DAPT without any recent missed doses. As a result, we traded our EBU guide for a JR 4 diagnostic catheter to look at the RCA and we noticed that the stents placed back in April were closed near theostium/proximal aspect of the coronary vessel. As a result, we wired the lesion with a run through to start which did not travel and then used a moe black with a microcatheter support. We were able to get into the distal vessel in the true lumen and then advanced a tekaru balloon followed by a SC euphora balloon. 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 We ultimately were able to open the vessel using a wolverine cutting balloon. We opted to stent the ostium and proximal vessel as there appeared to be a small dissection prior to the previously placed stent. We used 3.5 x 24 mm SYNERGY in the ostium. We switched him to prasugrel andloaded him in the laboratory technical specialist with this. We continued to balloon the vessel with a 3.5 mm NC euphora which resulted in FAUZIA 3 flow. We again put an IVUS catheter down which showed good expansion and residual disease in the distal bifurcation which was a small vessel. We did not perform further stenting to the distal vessel in an effort to give him potential targets for future open bypass revascularization. This patient has a very elevated HA1c and uncontrolled diabetes despite insulin. We will continue him on aspirin and prasugrel and plan for him to meet with a cardiac surgeon to discuss CABG in the setting of diabetic coronary disease, CKD and prior ISR. He will be admitted to the [facility] for monitoring and observation with potential for DC today. The patient tolerated the procedures smoothly and was transferred from the cardiac catheterization lab to the next level of care in stable condition. No evident early complications. Full report to follow. Physical Exam: BP 158/90 Pulse 80 Temp 36.6 ??C (97.9 ??F) (Temporal) Resp 24 Ht 177.8 cm (5' 10) Wt 121.2 kg (267 lb 4.8 oz) SpO2 96% BMI 38.35 kg/m?? Gen: Well-appearing, NAD HEENT: No pallor, no jaundice CV: RRR, no m/g/r, no elevated jugular venous pressure Lungs: CTAB, no increased WOB Abd: Soft, NTND, +NABS Ext: Wwp, no c/c/e Vasc: 2+ radial and femoral pulses, access site c/d/i Labs: Lab Results Component Value Date WBC 10.4 (H) 08/04/2023 HGB 12.0 (L) 08/04/2023 HCT 41.3 08/04/2023 MCV 70.0 (L) 08/04/2023 PLATELET 273 08/04/2023 Lab Results Component Value Date CREATININE 2.39 (H) 08/04/2023 BUN 38 (H) 08/04/2023 NA 137 08/04/2023 K 4.6 08/04/2023 CL 103 08/04/2023 CO2 23 08/04/2023 Lab Results Component Value Date TROPONINT 1.97 (H) 10/12/2018 Assessment/ Plan: #CAD, s/p PCI to RCA ISR - Admit for monitoring - Telemetry, serial ECGs, cycle cardiac biomarkers if chest pain persists and ischemia on EKG - Dual antiplatelet therapy, aspirin 81 mg po qd indefinitely and switch to prasugrel from plavix - IVF 100 ml for 8 hours - Monitor access site RRA - Cardiac rehab consult - Anticipate discharge when criteria is met GLENIS Puentes Interventional Cardiology 08/04/23 10:54 AM [facility] Pager: [phone] * Olga Chavarria PA - 08/04/2023 8:19 AM EDT Images from the original note were not included. Patient Name: Hayden Russo Patient Age: 47 y.o. Birthdate: 1975 Admit date: 08/04/2023 Attending Physician: Azul Mccoy MD Pre Cardiac Catheterization Note HPI: Hayden Russo is a 47 y.o. male who presents for planned PCI of the LCX of previously placed stent with ISR. He has a PMH of ASCVD with recent PCI to the RCA in the setting of STEMI and prior stent to LCX with prior NC. Referred for cardiac catheterization for evaluation of intracardiac filling pressures and coronary artery disease. There have not been any changes in health status since last seen in clinic. No recent or current illnesses. Patient denies fevers or chills. Patient denies any hematochezia, melena, hematemesis, intraabdominal bleeding, or intracranial bleeding. Planned/pending surgeries: none Diabetic medications: insulin pen Current antiplatelets/anticoagulants: aspirin and plavix NPO status: yes Objective Findings: Physical Exam: BP 157/90 (BP Location (NBP): Left arm) Pulse 77 Temp 36.6 ??C (97.9 ??F) (Temporal) Resp 18 Ht 177.8 cm (5' 10) Wt 121.2 kg (267 lb 4.8 oz) SpO2 98% BMI 38.35 kg/m?? Gen: Pleasant male in no apparent distress, able to lay flat Cardiac: regular rate, s1/s2 normal character and amplitude, no murmurs, rubs, or gallops. JVP not elevated Pulm: Clear to auscultation bilaterally, no increased work of breathing Ext: Palpable radial and femoral pulses bilaterally Neuro: no appreciated focal deficit ASA: 3: Patient with severe systemic disease Mallampati: III: only the base of the uvula can be seen Recent CBC Recent Labs 06/07/23 0540 06/06/237 06/05/23 0304 WBC 8.6 10.6* 10.7* HGB 9.7* 10.2* 10.6* HCT 33.7* 34.1* 36.4* PLATELET 237 254 262 Recent BMP Recent Labs 06/07/2340 06/06/2335606/05/23 0304 NA 136 136 138 K 4.7 5.1* 5.0 CL 103 104 107 CO2 21* 22 22 BUN 34* 32* 30* CREATININE 2.49* 2.57* 2.16* Previous Catheterization: See cards vasc tab from 04/2023 Plan: Hayden Russo presents for LHC/Coronary angiogram with plan to proceed as discussed. No C/I to long-term DAPT. - Proceed as planned - Consent reviewed and signed - No obvious CI to DAPT - Sedation plan: moderate/conscious sedation - FULL CODE The indications, expected benefits, and potential risks of heart catheterization were reviewed in detail with the patient. The potential for , heart attack, stroke, kidney failure/DONAL/SEAN, hemorrhage, allergic reaction, vascular complications and infection were reviewed in detail. The possibility of stenting and other percutaneous intervention, with associated risk, was reviewed. The possible need for emergent coronary artery bypass surgery was reviewed. Alternatives were discussed and thepatient's questions were answered in full. Following this discussion, the patient consented to the procedure and signed a form attesting to this, which is in the chart. Olga Chavarria PA-C Interventional Cardiology/Structural Heart Team Pager [phone] documented in this encounter Miscellaneous Notes * Consult Note - Waleska Gross RN - 08/04/2023 2:16 PM EDT Hayden Russo was seen today by Cardiac Rehabilitation for: S/p PCI Activity evaluation - Per [facility] nursing staff I met with this patient recently on June 06 s/p STEMI. At that time, I provided an educational packet on CAD risk factors, mediterranean style diet and home exercise. Patient tells me he still hasthe packet at home. A referral for cardiac rehab at [facility] was ordered in May. He tells me he was supposed to start cardiac rehab this week, but due to a recent increase in symptoms/fatigue. He has postponed his start date. Will forward an update to [facility] after discharge. He plans to reschedule an intake appointment in thenear future. * Brief Op Note - Olga Chavarria PA - 08/04/2023 10:47 AM EDT Preliminary Cardiac Catheterization Procedure Note: Patient Name: Hayden Russo : [id number] MR#: [id number] Case Date: 08/04/2023 Food Service: Surgeons and Role: * Azul Rowley MD - Primary * Olga Chavarria PA - Physician Director Power Preoperative diagnosis: ASCVD (arteriosclerotic cardiovascular disease) [I25.10] Postoperative diagnosis: * ASCVD * Procedure(s) performed: [facility] IVUS Stent insertion coronary Balloon angioplasty Access: 6 Fr RRA provided good access for the [facility] and coronary angiogram A time-out was conducted prior to the start of the procedure to verify the correct patient and procedure, procedure location, and all relevant critical information. Preliminary findings: This is a 47 year old diabetic, hypertension patient with known CKD baseline Cr of 2.4. He presented today for a planned LCX intervention to a known ISR lesion in his LCX. He is 3 months post-RCA STEMI where we stented the RCA with 2 MARIALUISA with good angiographic result. Today, upon initial diagnosticangiogram of the LCX in preparation for the PCI, we noticed there were still collaterals filling the distal RCA despite recent stenting back in April during his STEMI. He states he has been faithful on DAPT without any recent missed doses. As a result, we traded our EBU guide for a JR 4 diagnostic catheter to look at the RCA and we noticed that the stents placed back in April were closed near theostium/proximal aspect of the coronary vessel. As a result, we wired the lesion with a run through to start which did not travel and then used a moe black with a microcatheter support. We were able to get into the distal vessel in the true lumen and then advanced a tekaru balloon followed by a SC euphora balloon. 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 We ultimately were able to open the vessel using a wolverine cutting balloon. We opted to stent the ostium and proximal vessel as there appeared to be a small dissection prior to the previously placed stent. We used 3.5 x 24 mm SYNERGY in the ostium. We switched him to prasugrel andloaded him in the laboratory technical specialist with this. We continued to balloon the vessel with a 3.5 mm NC euphora which resulted in FAUZIA 3 flow. We again put an IVUS catheter down which showed good expansion and residual disease in the distal bifurcation which was a small vessel. We did not perform further stenting to the distal vessel in an effort to give him potential targets for future open bypass revascularization. This patient has a very elevated HA1c and uncontrolled diabetes despite insulin. We will continue him on aspirin and prasugrel and plan for him to meet with a cardiac surgeon to discuss CABG in the setting of diabetic coronary disease, CKD and prior ISR. He will be admitted to the [facility] for monitoring and observation with potential for DC today. The patient tolerated the procedures smoothly and was transferred from the cardiac catheterization lab to the next level of care in stable condition. No evident early complications. Full report to follow. GLENIS Puentes documented in this encounter Plan of Treatment Upcoming Encounters Date Type Department Care Team (Late st Contact Info) Description 01/31/2024 9:30 AM EST Office Visit [place] [address] Donavon Frey MD [facility] [place] [address] 02/06/2024 1:00 PM EST Office Visit [place] [facility] [address] [place] [address] Adrian Tello MD [facility] [place] [address] 04/25/2024 10:30 AM EST Office Visit [facility] Center at [facility] [address] [place] [id number] Maria De Jesus Lange APRN [facility] [place] [address] documented as of this encounter Procedures Procedure Name Priority Date/Time Associated Diagnosis Comments EKG 12-LEAD Routine 08/04/2023 10:51 AM EDT ASCVD (arteriosclerotic cardiovascular disease) CARDIAC CATHETERIZATION Routine 08/04/2023 10:32 AM EDT ASCVD (arteriosclerotic cardiovascular disease) Cath [facility] Left Heart Cath & Arts W/Inj & Angio Img S&I ([id number]) 08/04/2023 8:25 AM EDT ASCVD (arteriosclerotic cardiovascular disease) POCT GLUCOSE Routine 08/04/2023 8:13 AM EDT EKG 12-LEAD Routine 08/04/2023 8:11 AM EDT ASCVD (arteriosclerotic cardiovascular disease) BMP W/FASTING GLUCOSE STAT 08/04/2023 7:47 AM EDT SCAN, PERIPHERAL BLOOD STAT 7:47 AM EDT HEMOGRAM STAT 08/04/2023 7:47 AM EDT DIFFERENTIAL, AUTOMATED STAT 08/04/2023 7:47 AM EDT CBC (WITH DIFF) STAT 08/04/2023 7:47 AM EDT documented in this encounter Results * EKG 12 Lead (08/04/2023 10:51 AM EDT) Ventricular rate 79 BPM MUSE SYSTEM Atrial Rate 79 BPM MUSE SYSTEM P-R Interval 198 ms MUSE SYSTEM QRS Duration 102 ms MUSE SYSTEM Q-T Interval 370 ms MUSE SYSTEM QTC Calculated (Bezet) 424 ms MUSE SYSTEM Calculated P [place] 49 degrees MUSE SYSTEM Calculated R [place] 11 degrees MUSE SYSTEM Calculated T [place] -18 degrees MUSE SYSTEM INTERPRETATION Normal sinus rhythm Minimal voltage criteria for LVH, may be normal variant ( R in aVL ) Inferior infarct (cited on or before 12-OCT-2018) Cannot rule out Anterior infarct (cited on or before 04-AUG-2023) Abnormal ECG When compared with ECG of 04-AUG-2023 08:11, No significant change was found Confirmed by Jonathan Baig ([id number]) on 08/04/2023 2:21:56 PM MUSE SYSTEM 08/04/2023 10:5 1 AM EDT 08/04/2023 2:21 PM EDT Azul Mccoy MD ECG ORDERABLES MUSE SYSTEM * CARDIAC CATHETERIZATION (08/04/2023 10:32 AM EDT) Anatomical Region Laterality Modality Other Narrative 08/07/2023 9:27 AM EDT ?[facility] ? Cardiac Catheterization/Intervention Report ? Patient Name: Brrita, Hayden M. ? Procedure Date: 08/04/2023 ? A #: [id number] ? Primary Physician: Azul Rowley I ? Case #: [id number] ? File Name: [id number] ? Catheterization Order Number: [id number] ? [facility]ational [facility] ? Final Report [place], [place] ? Patient Name: ? Hayden M. Brill ? ID#: ?[id number] ? : ?1975 ? Procedure Date: ? August 04, 2023 ?Case #: ? [id number] ? Room: ? 5 ? Case Physician: ? Azul Rowley M.D. ? Start: ?08:45 ? Admission: ??08/04/2023 ? Discharge: ??08/04/2023 ? Procedures: ?* Coronary Angiography ?* Left Heart Catheterization ?* Coronary Ultrasound ?* Coronary Angioplasty ?* Coronary Stent Insertion ? History ?Hayden Russo is a 47 year old man. He has hypertension. The patient's ?smoking status is Former. He has hypercholesterolemia managed with lipid ?therapy. The patient has diabetes managed by diet, insulin and oral ?medication. He has a prior history of coronary artery disease. The ?patient is status post a remote myocardial infarction. He had a coronary ?intervention procedure. Prior to the initiation of this procedure, the ?patient was designated as ASA Class III. The CSHA clinical frailty scale ?is 3: Managing Well. ? Diagnostic Tests: ?Prior Coronary Angiography: ? LV ejection fraction within 6 months is 51%. ?Electrocardiography: ? EKG was assessed by ECG. EKG was Abnormal. EKG showed ST Deviation ? >= 0.5 mm. ?Medications Prior to Procedure: ? Aspirin, Beta Yajaira and Statin. ? Indications for Diagnostic Cath: ?The priority of the diagnostic procedure was Elective. The indication for ?the laboratory technical specialist visit is worsening angina and stable known CAD. Chest pain ?symptom assessment was: Atypical Angina. ? Technique: ?A 6 SLFr sheath was inserted in the right radial artery utilizing the ?Seldinger technique. The left coronary artery was injected utilizing a ?6Fr EBU 3.75 catheter. Left ventricular pressure was performed utilizing ?a 6Fr EBU 3.75 catheter. A 6Fr JR 4 catheter was used to inject the right ?coronary artery. Coronary angioplasty and coronary stent insertion were ?performed and the equipment utilized will be described in the ?intervention summary section. 10,000 units of heparin were administered. ?A total of 200cc of Omnipaque were opened, 126cc of Omnipaque were ?administered and 74cc of Omnipaque were wasted. Radiation: Fluoro time ?was 35.6 minutes, dose area product was 114.00 Gy/cm2 and air kerma was ?2,166 mGY. See the case log for additional details. ?The patient received the following medications prior to and during the ?procedure: ? Unfractionated Heparin, Clopidogrel and Prasugrel. ? Hemodynamics: ?Left Heart Pressures ? Resting: ? Syst Diast ? EDP ?a ?v ? m ?Ao 127 ?? 72 ?93 ?LV 127 ? 15 ? Coronary Angiography: ?Dominance: Right ?Left Main [...] restenosis following a prior coronary stent insertion. ?Right Coronary Artery ? There was a single discrete total occlusion of the proximal segment ? of the right coronary artery (RCA). ??There was no antegrade distal ? flow (FAUZIA Grade 0). ??Distal flow was via collaterals from the LAD ? and collaterals from the LCX. ??The mid segment of the RCA had a ? single discrete total occlusion. ??Distal flow was via collaterals ? from the LAD and collaterals from the LCX. ??There was no antegrade ? distal flow (FAUZIA Grade 0). ??There also was a single discrete total ? occlusion of the distal segment of the RCA. ??There was no antegrade ? distal flow (FAUZIA Grade 0). ??Distal flow was via collaterals from ? the LAD and collaterals from the LCX. ? Intravascular Imaging/Physiology: ?Intravascular Ultrasound was performed in the proximal RCA using a 6 Fr ?JR 4 guiding catheter and a 3.1 Fr Refinity 42 MHz catheter using auto ?0.5 mm/sec pullback. ??Imaging was successful. ?Indication: IVUS performed for pre intervention planning, in-stent ?restenosis or thrombosis and neoathersclerosis. ?IVUS performed after pre-dilation. ?Findings Pre-Intervention: scattered plaque. These measurements were ?performed after pre-dilation of the lesion. ?Findings Post-Intervention: The post intervention minimal cross- sectional ?area was 8.00mm2. ??The stent was well expanded and apposed. ?Conclusions: stent/intervention appears optimized. ?Intravascular Ultrasound was performed in the distal RCA using a 6 Fr JR ?4 guiding catheter and a 3.1 Fr Refinity 42 MHz catheter using auto 0.5 ?mm/sec pullback. ??Imaging was successful. ?Indication: IVUS performed for pre intervention planning, in-stent ?restenosis or thrombosis and neoathersclerosis. ?Findings Pre-Intervention: scattered plaque. ?Findings Post-Intervention: The post intervention minimal cross- sectional ?area was 6.00mm2. ??The stent was well expanded and apposed. ?Conclusions: stent/intervention appears optimized. ?Intravascular Ultrasound was performed in the mid RCA using a 6 Fr JR 4 ?guiding catheter and a 3.1 Fr Refinity 42 MHz catheter using auto 0.5 ?mm/sec pullback. ??Imaging was successful. ?Indication: IVUS performed for pre intervention planning, in-stent ?restenosis or thrombosis and neoathersclerosis. ?Findings Pre-Intervention: scattered plaque. ?Findings Post-Intervention: The post intervention minimal cross- sectional ?area was 5.30mm2. ??The stent was well expanded and apposed. ?Conclusions: stent/intervention appears optimized. ? Indication for Intervention: ?Coronary intervention was indicated for treatment of stable angina. The ?priority for the procedure was Elective. The NCDR indication for the ?procedure was Stable angina. LVEF within one week was 51%. Syntax Score ?was Intermediate. Staged PCI was performed for multivessel disease. ? Intervention Summary: ?Right Coronary Artery ? Proximal 100% ? Stent insertion was performed on the total occlusion in the ? proximal segment of the RCA. This was a drug eluting in- stent ? restenosis lesion. According to the ACC/AHA classification ? system, this lesion was a type C high risk lesion. Management ? of recurrent restenosis was the indication for stent ? insertion. This was the culprit lesion. A guidewire was placed ? across this lesion. Vessel flow pre intervention was FAUZIA 0. ? Lesion length was 30mm. This was a previously treated lesion ? on 06/04/2023. ? Stent insertion was accomplished through a 6 Fr. JR 4 guide. ? The lesion was predilated with a 3.00mm EUPHORA 12 MM balloon ? with a maximum inflation pressure of 18 atmospheres. ??A ? premounted 3.50 x 24 mm Synergy XD (MARIALUISA) was deployed with a ? maximum inflation pressure of 12 atmospheres. ??Following stent ? deployment, the lesion was dilated using a 4.00mm NC EUPHORA ? 12 MM balloon with a maximum inflation pressure of 14 ? atmospheres. ? The final outcome was defined as successful. A coronary ? arteriolar vasodilator was administered as part of the ? intervention on this lesion. There was no residual stenosis ? following this intervention. The final FAUZIA flow was 3. ? Mid 100% ? Angioplasty was performed on the total occlusion in the mid ? segment of the RCA. This was a drug eluting in-stent ? restenosis lesion. This lesion was designated a type C high ? risk lesion based on ACC/AHA classification system. This was ? the culprit lesion. A guidewire was placed across this lesion. ? Vessel flow pre intervention was FAUZIA 0. Lesion length was ? 20mm. This was a previously treated lesion on 06/04/2023. ? Angioplasty was accomplished through a 6 Fr JR 4 guide ? utilizing a [place] CB 15 MM balloon with a maximum size of ? 3.00mm and a maximum inflation pressure of 12 atmospheres. ? The final outcome was defined as successful. A coronary ? arteriolar vasodilator was administered as part of the ? intervention on this lesion. There was no residual stenosis ? following this intervention. The final FAUZIA flow was 3. ? Distal 100% ? Angioplasty was performed on the total occlusion in the distal ? segment of the RCA. This was a drug eluting in-stent ? restenosis lesion. According to the ACC/AHA classification ? system, this lesion was a type C high risk lesion. This was ? the culprit lesion. A guidewire was placed across this lesion. ? Vessel flow pre intervention was FAUZIA 0. Lesion length was ? 30mm. This was a previously treated lesion on 06/04/2023. ? Angioplasty was accomplished through a 6 Fr JR 4 guide ? utilizing a [employer] CB 15 MM balloon with a maximum size of ? 2.50mm and a maximum inflation pressure of 14 atmospheres. ? The final outcome was defined [...] Antiplatelet (DAPT) Recommendations: ?Drug eluting stent (MARIALUISA) inserted for stable ischemic heart disease ?(SIHD). ?P2Y12 Loading dose Prasugrel 60 mg PO given in lab. ?Recommended anti-platelet/anti-thrombotic regimen: ?Start aspirin 81 mg daily now and continue for indefinitely. ?Start prasugrel 10 mg daily now and continue for 12 months then stop. ?These recommendations are made at the time of the intervention. Patient ?and provider preferences or a changing clinical situation may require ?modification of this regimen. Consult [facility] Interventional Cardiology for ?questions. ?The 1 year bleeding risk as calculated by the PRECISE DAPT score is Low ?risk. ? Conclusions: ?* Three vessel coronary artery disease (LAD, LCX and RCA) ?* Successful stent insertion of the proximal RCA lesion ?* Successful angioplasty of the distal RCA lesion ?* Successful angioplasty of the mid RCA lesion ?* See Dual Antiplatelet (DAPT) Recommendations above ? Complications/Events: ?The patient had no complications during these procedures. ? Post Procedure Fluid Recommendations: ?IV fluid at 200 mL/hr for 4 hours for a total of 800 mL. These ?recommendations are made at the [...] by the sedation nurse. ??Case time = 01:42. ?Dr. Azul Rowley M.D. performed the coronary angiography, left heart ?catheterization, IVUS # coronary, stent insertion-coronary and ?angioplasty-coronary. ? Azul Rowley M.D. ? Electronically Signed by: Azul Rowley M.D. ? Report Finalized: 08/07/2023 ??09:23 ? Report Last Ammended: 09/13/2023 ??11:45 ? Procedure Note Azul Rowley MD - 09/13/2023 [facility] Cardiac Catheterization/Intervention Report Patient Name: Hayden Russo Procedure Date: 08/04/2023 A #: [id number] Primary Physician: Azul Rowley I Case #: [id number] File Name: [id number] Catheterization Order Number: [id number] [facility] FinalReport [place], [place] Patient Name: Hayden Russo ID#:[id number] :1975 Procedure Date: August 04, 2023 Case #: [id number] Room: 5 Case Physician: Azul Rowley M.D. Start: 08:45 Admission:08/04/2023 Discharge:08/04/2023 Procedures: * Coronary Angiography * Left Heart [...] post a remote myocardial infarction. He had acoronary intervention procedure. Prior to the initiation of this procedure,the patient was designated as ASA Class III. The [facility] clinical frailtyscale is 3: Managing Well. Diagnostic Tests: Prior Coronary Angiography: LV ejection fraction within 6 months is 51%. Electrocardiography: EKG was assessed by ECG. EKG was Abnormal. EKG showed STDeviation >= 0.5 mm. Medications Prior to Procedure: Aspirin, Beta Yajaira and Statin. Indications for Diagnostic Cath: The priority of the diagnostic procedure was Elective. Theindication for the laboratory technical specialist visit is worsening angina and stable known CAD. Chestpain symptom assessment was: Atypical Angina. Technique: A 6 SLFr sheath was inserted in the right radial artery utilizingthe Seldinger technique. The left coronary artery was injected utilizinga 6Fr EBU 3.75 catheter. Left ventricular pressure was performedutilizing a 6Fr EBU 3.75 catheter. A 6Fr JR 4 catheter was used to inject theright coronary artery. Coronary angioplasty and coronary stent insertionwere performed and the equipment utilized will be described in the intervention summary section. 10,000 units of heparin wereadministered. A total of 200cc of Omnipaque were opened, 126cc of Omnipaque were administered and 74cc of Omnipaque were wasted. Radiation: Fluorotime was 35.6 minutes, dose area product was 114.00 Gy/cm2 and air kermawas 2,166 mGY. See the case log for additional details. The patient received the following medications prior to and duringthe procedure: Unfractionated Heparin, Clopidogrel and Prasugrel. Hemodynamics: [...] proximalsegment of the right coronary artery (RCA). There was no antegradedistal flow (FAUZIA Grade 0). Distal flow was via collaterals from theLAD and collaterals from the LCX. The mid segment of the RCA had a single discrete total occlusion. Distal flow was viacollaterals from the LAD and collaterals from the LCX. There was noantegrade distal flow (FAUZIA Grade 0). There also was a single discretetotal occlusion of the distal segment of the RCA. There was noantegrade distal flow (FAUZIA Grade 0). Distal flow was via collateralsfrom the LAD and collaterals from the LCX. Intravascular Imaging/Physiology: Intravascular Ultrasound was performed in the proximal RCA using a 6Fr JR 4 guiding catheter and a 3.1 Fr Refinity 42 MHz catheter usingauto 0.5 mm/sec pullback. Imaging was successful. Indication: IVUS performed for pre intervention planning, in-stent restenosis or thrombosis and neoathersclerosis. IVUS performed after pre-dilation. Findings Pre-Intervention: scattered plaque. These measurements were performed after pre-dilation of the lesion. Findings Post-Intervention: The post intervention minimalcross-sectional area was 8.00mm2. The stent was well expanded and apposed. Conclusions: stent/intervention appears optimized. Intravascular Ultrasound was performed in the distal RCA using a 6Fr JR 4 guiding catheter and a 3.1 Fr Refinity 42 MHz catheter using auto0.5 mm/sec pullback. Imaging was successful. Indication: IVUS performed for pre intervention planning, in-stent restenosis or thrombosis and neoathersclerosis. Findings Pre-Intervention: scattered plaque. Findings Post-Intervention: The post intervention minimalcross-sectional area was 6.00mm2. The stent was well expanded and apposed. Conclusions: stent/intervention appears optimized. Intravascular Ultrasound was performed in the mid RCA using a 6 FrJR 4 guiding catheter and a 3.1 Fr Refinity 42 MHz catheter using auto0.5 mm/sec pullback. Imaging was successful. Indication: IVUS performed for pre intervention planning, in-stent restenosis or thrombosis and neoathersclerosis. Findings Pre-Intervention: scattered plaque. Findings Post-Intervention: The post intervention minimalcross-sectional area was 5.30mm2. The stent was well expanded and apposed. Conclusions: stent/intervention appears optimized. Indication for Intervention: Coronary intervention was indicated for treatment of stable angina.The priority for the procedure was Elective. The NCDR indication for the procedure was Stable angina. LVEF within one week was 51%. SyntaxScore was Intermediate. Staged PCI was performed for multivessel disease. Intervention Summary: Right Coronary Artery Proximal 100% Stent insertion was performed on the total occlusion inthe proximal segment of the RCA. This was a drug elutingin-stent restenosis lesion. According to the ACC/AHAclassification system, this lesion was a type C high risk lesion.Management of recurrent restenosis was the indication for stent insertion. This was the culprit lesion. A guidewire wasplaced across this lesion. Vessel flow pre intervention was TIMI0. Lesion length was 30mm. This was a previously treatedlesion on 06/04/2023. Stent insertion was accomplished through a 6 Fr. JR 4guide. The lesion was predilated with a 3.00mm EUPHORA 12 MMballoon with a maximum inflation pressure of 18 atmospheres. A premounted 3.50 x 24 mm Synergy XD (MARIALUISA) was deployedwith a maximum inflation pressure of 12 atmospheres. Followingstent deployment, the lesion was dilated using a 4.00mm NCEUPHORA 12 MM balloon with a maximum inflation pressure of 14 atmospheres. The final outcome was defined as successful. A coronary arteriolar vasodilator was administered as part of the intervention on this lesion. There was no residualstenosis following this intervention. The final FAUZIA flow was 3. Mid 100% Angioplasty was performed on the total occlusion in themid segment of the RCA. This was a drug eluting in-stent restenosis lesion. This lesion was designated a type Chigh risk lesion based on ACC/AHA classification system. Thiswas the culprit lesion. A guidewire was placed across thislesion. Vessel flow pre intervention was FAUZIA 0. Lesion lengthwas 20mm. This was a previously treated lesion on 06/04/2023. Angioplasty was accomplished through a 6 Fr JR 4 guide utilizing a [place] CB 15 MM balloon with a maximumsize of 3.00mm and a maximum inflation pressure of 12atmospheres. The final outcome was defined as successful. A coronary arteriolar vasodilator was administered as part of the intervention on this lesion. There was no residualstenosis following this intervention. The final FAUZIA flow was 3. Distal 100% Angioplasty was performed on the total occlusion in thedistal segment of the RCA. This was a drug eluting in-stent restenosis lesion. According to the ACC/AHAclassification system, this lesion was a type C high risk lesion. Thiswas the culprit lesion. A guidewire was placed across thislesion. Vessel flow pre intervention was FAUZIA 0. Lesion lengthwas 30mm. This was a previously treated lesion on 06/04/2023. Angioplasty was accomplished through a 6 Fr JR 4 guide utilizing a [place] CB 15 MM balloon with a maximumsize of 2.50mm and a maximum inflation pressure of 14atmospheres. The final outcome was defined as successful. [...] situation mayrequire modification of this regimen. [place] [facility] [place]. The 1 year bleeding [...] Post Procedure Fluid Recommendations: IV fluid at 200 mL/hr for 4 hours for a total of 800 mL. These recommendations are made at the [...] documented by the sedation nurse. Case time =01:42. Dr. Azul Rowley M.D. performed the coronary angiography, leftheart catheterization, IVUS # coronary, stent insertion-coronary and angioplasty-coronary. Azul Rowley M.D. Electronically Signed by: Azul Rowley M.D. Report Finalized: 08/07/2023 09:23 Report Last Ammended: 09/13/2023 11:45 Azul Mccoy MD CARDIAC CATH ORDERA BLES * POCT Glucose (08/04/2023 8:13 AM EDT) [facility] Glucose, POC 186 65 - 199 mg/dL [facility] Comment: Supplemental ranges: <140 mg/dL before meals <180 mg/dL all other times of the day Blood 08/04/2023 8:13 AM EDT 08/04/2023 8:13 AM EDT Azul Mccoy MD POINT OF CARE TEST ORDERABLES [facility] [place] [address] * EKG 12 Lead (08/04/2023 8:11 AM EDT) [facility] Ventricular rate 74 BPM MUSE SYSTEM Atrial Rate 74 BPM MUSE SYSTEM P-R Interval 182 ms MUSE SYSTEM QRS Duration 102 ms MUSE SYSTEM Q-T Interval 372 ms MUSE SYSTEM QTC Calculated (Bezet) 412 ms MUSE SYSTEM Calculated P [place] 43 degrees MUSE SYSTEM Calculated R [place] 6 degrees MUSE SYSTEM Calculated T [place] -11 degrees MUSE SYSTEM INTERPRETATION Normal sinus rhythm Minimal voltage criteria for LVH, may be normal variant ( R in aVL ) Inferior infarct (cited on or before 12-OCT-2018) Abnormal ECG When compared with ECG of 04-JUN-2023 19:05, ST no longer elevated in Inferior leads Inverted T waves have replaced nonspecific T wave abnormality in Inferior leads I personally reviewed the tracing and edited the fellows interpretation Confirmed by fellow Antoni Gonzalez ([id number]) on 08/04/2023 8:51:23 AM Confirmed by Jonathan Baig ([id number]) on 08/04/2023 1:42:12 PM MUSE SYSTEM 08/04/2023 8:11 AM EDT 08/04/2023 1:42 PM EDT Azul Mccoy MD ECG ORDERABLES M[facility] SYSTEM * Scan, Peripheral Blood (08/04/2023 7:47 AM EDT) [facility] Plat estimate Normal [facility] RBC Morphology Abnormal [facility] Microcyte 1-5 /HPF [facility] Ovalocytes 1-5 /HPF [facility] Blood 08/04/2023 7:47 AM EDT 08/04/2023 7:51 AM EDT Narrative Resulting Agency Comment Spec In Lab Olga GALVIN HEMATOLOGY ORDERABLE S [facility] [place] [address] * (ABNORMAL) Differential, Automated (08/04/2023 7:47 AM EDT) [facility] Neutrophil % 71.7 % [facility] Neutrophil Absolute 7.46(H) 1.70 - 6.10 x10(3)/[facility] Lymph % 16.8 % [facility] Lymphocytes Abs 1.8 0.9 - 3.2 x10(3)/[facility] Monocyte % 8.3 % [facility] Monocyte Abs 0.9 0.3 - 0.9 x10(3)/[facility] Eos % 2.0 % [facility] Eosinophils Abs 0.2 0.0 - 0.4 x10(3)/[facility] Basophil % 0.9 % [facility] Baso Absolute 0.1 0.0 - 0.1 x10(3)/[facility] Immature Gran % 0.30 % [facility] Comment: Immature granulocytes(IG's)percentage and absolute count will include metamyelocytes, myelocytes, and promyelocytes. Blood smears from CBCs yielding IG's will be scanned manually for concordance. If this scan disagrees with the automated IG or if promyelocytes are noted, a manual differential will be performed. Immature Gran Absolute 0.03 0.00 - 0.04 x10(3)/[facility] Blood 08/04/2023 7:47 AM EDT 08/04/2023 7:51 AM EDT Narrative Resulting Agency Comment Spec In Lab Olga GALVIN HEMATOLOGY ORDERABLE S [facility] [place] [address] * (ABNORMAL) Hemogram (08/04/2023 7:47 AM EDT) White Blood Cell 10.4(H) 4.0 - 9.5 x10(3)/[facility] Red Blood Cell 5.90(H) 4.58 - 5.54 x10(6)/[facility] Hemoglobin 12.0(L) 13.7 - 16.5 g/dL [facility] Hematocrit 41.3 40.5 - 48.5 % [facility] Mean Cell Volume 70.0(L) 82.9 - 93.1 fL [facility] Mean Cell Hemoglobin 20.3(L) 27.5 - 32.1 pg [facility] Mean Cell Hemoglobin Concentration 29.1(L) 32.0 - 35.7 g/dL [facility] Platelet 273 145 - 357 x10(3)/mc L [facility] RDW Standard Deviation 45.9(H) 36.0 - 45.0 fL [facility] RDW coefficient of variation 19.5(H) 11.4 - 13.8 % [facility] Mean Platelet Volume 11.4 7.6 - 12.9 [facility] NRBC% auto 0.0 % [facility] NRBC Absolute 0.000 0.000 - 0.000 x10(3)/mc L [facility] Blood 08/04/2023 7:47 AM EDT 08/04/2023 7:51 AM EDT Narrative Resulting Agency Comment Spec In Lab Olga GALVIN HEMATOLOGY ORDERABLE S [facility] [place] [address] * (ABNORMAL) BMP w/fasting Glucose (08/04/2023 7:47 AM EDT) Glucose Fasting 211(H) 65 - 99 mg/dL [facility] Comment: ?Fasting* Glucose Interpretive Criteria Normal ?65-99 mg/dL Impaired Fasting glucose ?100-125 mg/dL Consistent with Diabetes Mellitus ? >or= 126 mg/dL *Fasting is defined as no caloric intake for at least 8 hours In the absence of unequivocal hyperglycemia a plasma glucose value of >or= 126 mg/dL should be repeated on a subsequent day. Diagnosis and Classification of Diabetes Mellitus, Position Statement from the [place] [employer]. ??Diabetes Care, Volume 33, Supplement 1, Feb 2009 Blood Urea Nitrogen 38(H) 10 - 20 mg/dL [facility] Creatinine 2.39(H) 0.80 - 1.50 mg/dL [facility] Sodium 137 135 - 145 mmol/L [facility] Potassium 4.6 3.5 - 5.0 mmol/L [facility] Comment: Please note: ??Patients with WBC >100,000 may have falsely elevated Potassium levels. ??For accurate Potassium quantification in these patients send serum separator tube (gold top) for subsequent determinations. ??Contact the Clinical Chemistry Laboratory if there are any questions. Chloride 103 98 - 107 mmol/L [facility] Carbon Dioxide 23 22 - 31 mmol/L [facility] Anion Gap 11 5 - 15 mmol/L [facility] Calcium 9.2 8.5 - 10.5 mg/dL [facility] Est Glomerular Filtration Rate 33(L) >=60 mL/min/1. 73 m?? [facility] Comment: This patient's estimated GFR [...] and symptoms in addition to eGFR. Blood 08/04/2023 7:47 AM EDT 08/04/2023 7:51 AM EDT Narrative Resulting Agency Comment Spec In Lab Azul Mccoy [place] [address] documented in this encounter Visit Diagnoses Diagnosis CAD (coronary artery disease)- Primary Coronary atherosclerosis of unspecified type of vessel, [place] or graft ASCVD (arteriosclerotic cardiovascular disease) Unspecified cardiovascular disease ASCVD (arteriosclerotic cardiovascular disease) Unspecified cardiovascular disease documented in this encounter Admitting Diagnoses Diagnosis CAD (coronary artery disease) Coronary atherosclerosis of unspecified type of vessel, [place] or graft documented in this encounter Administered Medications Inactive Administered Medications - up to 3 most recent administrations Medication Order MAR Action Action Date Dose Rate Site fentaNYL (pf) (50 mcg/mL) multi-dose injection PRN, Starting on Mon08/04/23 at 0845, Until Mon08/04/23 at 1030, Intra-Operative (Intra-Procedure), Routine Given 08/04/2023 10:11 AM EDT 25 mcg Given 08/04/2023 8:45 AM EDT 50 mcg heparin (porcine) (1,000 units/mL) injection PRN, Starting on Mon08/04/23 at 0853, Until Mon08/04/23 at 1030, Intra-Operative (Intra-Procedure), Routine Given 08/04/2023 9:34 AM EDT 2,000 Units Given 08/04/2023 8:53 AM EDT 8,000 Units iohexoL (Omnipaque) (350 mg/mL) solution PRN, Starting on Mon08/04/23 at 1026, Until Mon08/04/23 at 1030, Intra-Operative (Intra-Procedure), Routine Given 08/04/2023 10:26 AM EDT 126 mLs midazolam (pf) (Versed) (1 mg/mL) multi-dose injection PRN, Starting on Mon08/04/23 at 0845, Until Mon08/04/23 at 1030, Intra-Operative (Intra-Procedure), Routine Given 08/04/2023 10:11 AM EDT 1 mg Given 08/04/2023 8:45 AM EDT 1 mg nitroGLYcerin 100 mcg/mL intracoronary dilution PRN, Starting on Mon08/04/23 at 0846, Until Mon08/04/23 at 1030, Intra-Operative (Intra-Procedure), Routine Given 08/04/2023 9:58 AM EDT 200 mcg Given 08/04/2023 8:46 AM EDT 175 mcg prasugreL (Effient) tablet PRN, Starting on Mon08/04/23 at 0907, Until Mon08/04/23 at 1030, Intra-Operative (Intra-Procedure), Routine Given 08/04/2023 9:07 AM EDT 60 mg sodium chloride 0.9% infusion 100 mL/hr, Intravenous, CONTINUOUS, Starting on Mon08/04/23 at 1115, Until Mon08/04/23 at 1103, Recovery (Recovery-Hospital Unit) New Bag 08/04/2023 10:51 AM EDT 100 mL/hr 100 mL/hr sodium chloride 0.9% infusion 200 mL/hr, Intravenous, CONTINUOUS, Starting on Mon08/04/23 at 1130, Until Mon08/04/23 at 1529, Recovery (Recovery-Hospital Unit) Rate/Dose Change 08/04/2023 11:04 AM EDT 200 mL/hr 200 mL/hr verapamiL (Isoptin) (2.5 mg/mL) injection PRN, Starting on Mon08/04/23 at 0845, Until Mon08/04/23 at 1030, Administer over 2 Minutes, Intra-Operative (Intra-Procedure) Given 08/04/2023 8:45 AM EDT 2.5 mg documented in this encounter Active and Recently Administered Medications Times are shown in EDT. Scheduled Medication Order 08/02/2023 08/03/2023 08/04/2023 aspirin EC tablet 81 mg 81 mg, Oral, DAILY, First dose on 08/05/23 at 0900, Until Discontinued, Recovery (Recovery-Hospital Unit), Routine prasugreL (Effient) tablet 10 mg 10 mg, Oral, DAILY, First dose on 08/05/23 at 0900, Until Discontinued, DO NOT DISCONTINUE WITHOUT CHECKING WITH INTERVENTIONAL CARDIOLOGY, Recovery (Recovery-Hospital Unit), Routine Continuous Medication Order 08/02/2023 08/03/2023 08/04/2023 sodium chloride 0.9% infusion (CANCELED) 100 mL/hr, Intravenous, CONTINUOUS, Starting on Mon08/04/23 at 1115, Until Mon08/04/23 at 1103, Recovery (Recovery-Hospital Unit) 1051 (New Bag - Prov ider: Steffen Rivers RN) sodium chloride 0.9% infusion () 200 mL/hr, Intravenous, CONTINUOUS, Starting on Mon08/04/23 at 1130, Until Mon08/04/23 at 1529, Recovery (Recovery-Hospital Unit) 1104 (Rate/Dose Gonzalez ge - Provider: Echo Pino, RN)1504 (Stopped - Provider: Liliya Lowe, DELL) PRN Medication Order 08/02/2023 08/03/2023 08/04/2023 fentaNYL (pf) (50 mcg/mL) multi-dose injection (CANCELED) PRN, Starting on Mon08/04/23 at 0845, Until Mon08/04/23 at 1030, Intra-Operative (Intra-Procedure), Routine 0845 (Given - Provid er: Lauri Gaviria)1011 (Given - Provider: Lauri Gaviria) heparin (porcine) (1,000 units/mL) injection (CANCELED) PRN, Starting on Mon08/04/23 at 0853, Until Mon08/04/23 at 1030, Intra-Operative (Intra-Procedure), Routine 0853 (Given - Provid er: Lauri Gaviria)0934 (Given - Provider: Lauri Gaviria) iohexoL (Omnipaque) (350 mg/mL) solution (CANCELED) PRN, Starting on Mon08/04/23 at 1026, Until Mon08/04/23 at 1030, Intra-Operative (Intra-Procedure), Routine 1026 (Given - Provid er: Azul Mccoy MD) midazolam (pf) (Versed) (1 mg/mL) multi-dose injection (CANCELED) PRN, Starting on Mon08/04/23 at 0845, Until Mon08/04/23 at 1030, Intra-Operative (Intra-Procedure), Routine 0845 (Given - Provid er: Lauri Gaviria)1011 (Given - Provider: Lauri Gaviria) nitroGLYcerin 100 mcg/mL intracoronary dilution (CANCELED) PRN, Starting on Mon08/04/23 at 0846, Until Mon08/04/23 at 1030, Intra-Operative (Intra-Procedure), Routine 0846 (Given - Provid er: Azul Mccoy MD)0958 (Given - Provider: GLENIS Ariza) prasugreL (Effient) tablet (CANCELED) PRN, Starting on Mon08/04/23 at 0907, Until Mon08/04/23 at 1030, Intra-Operative (Intra-Procedure), Routine 0907 (Given - Provid er: Lauri Gaviria) verapamiL (Isoptin) (2.5 mg/mL) injection (CANCELED) PRN, Starting on Mon08/04/23 at 0845, Until Mon08/04/23 at 1030, Administer over 2 Minutes, Intra-Operative (Intra-Procedure) 0845 (Given - Provid er: Azul Mccoy MD) documented in this encounter 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
--- OUTSIDE RECORDS SUMMARY | 2024-01-04 13:17 | XMS_ITS | Encounter Summary ---
Author Organization [facility] [place] [address] Care Team Providers Care Dough Brake Machine Operator Name Role Phone Bandar Hahn MD Primary Care Provider [phone] Reason for Visit * Auth/Cert (Routine) Specialty Diagnoses / Procedures Referred By Martha t Referred To Contact Diagnoses STEMI (ST elevation myocardial infarction) STEMI Procedures CARDIAC CATHETERIZATION Jonathan Rojas MD [facility] [place] [address] [facility] Referral ID Status Reason Start Date Expiration Date Visits Re quested Visits Authorized [id number] 1 1 Encounter Details Date Type Department Care Team (Late st Contact Info) Description 06/04/2023 4:00 PM EDT - 06/04/2023 5:00 PM EDT Surgery [place] [address] Azul Rowley MD [facility] [address] [place], [place] [id number] CARDIAC CATHETERIZATION Social History Tobacco Use Types Packs/Day Years Used Date Smoking Tobacco: Former Cigarettes 1 10 Smokeless Tobacco: Never Alcohol Use Standard Drinks/Week Comments Yes 7 (1 standard drink = 0.6 oz pur e alcohol) [facility] Utilities [...] health care facility (including now)? No 06/05/2023 DH IPV Inpatient [...] Sign Reading Time Taken Comments Blood Pressure 137/87 06/04/2023 4:31 PM EDT Pulse 97 06/04/2023 4:31 PM EDT Temperature - - Respiratory Rate 17 06/04/2023 4:31 PM EDT Oxygen Saturation 93% 06/04/2023 4:31 PM EDT Inhaled Oxygen Concentration - - Weight 117 kg (257 lb 15 oz) 06/04/2023 3:00 PM EDT Height 177 cm (5' 9.69) 06/04/2023 [...] unless otherwise contraindicated - Will follow with slab lifting supervisor at for staged PCI of his Lcx [...] of the mid LCX lesion Operations/Major Procedures: LHC w/ PCI to RCA 06/04/23 History of Presentation: (Per admission H&P) 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 Had been on ASA + Plavix with Plavix discontinued ~a year ago. He endorses new back pain with radiation to b/l arms starting yesterday morning, progressing to chest pressure and JULES c/f WI. Initially presented to [facility] ED. OSH ED Course: VSS on presentation, BP 130s/70s w/ HR 100s. EKG showed sinus tachycardia with ST-elevations in inferior leads, borderline elevations in V2- V4. Loaded with ASA + Plavix and started heparin gtt prior to transfer to [facility]. Labs obtained but results not sent from OSH. Received C. Per preliminary [facility] report, LHC showed proximal 100% disease in [...] #inferior STEMI #HTN #HLD #Angina Arrived to slab lifting supervisor where found to have single discrete total [...] to PCP. Primary Team Inpatient Physicians at [facility] was: Attending Physician(s): Jonathan Rojas MD Resident(s): John Katz MD Inpatient Provider Contact Information: If you have questions about this document please contact the [facility] mix house operator at and ask for one of [...] -- LDLCHOL Not Calculated -- Diagnostic Studies: [facility] 06/04/23 Preliminary findings: Right dominant circulation LVEDP [...] of 8AM-5PM please call the Cardiology Clinic [phone] to speak with a nurse. All other hours please call the Hospital Fitness Services Manager [phone] and ask to speak to the special events planner on-call. Return to work: One week Driving: No driving for 48 hours after cath Follow up Appointments: Doctor Where Phone # Date Time [place] [phone] 06/20/23 1:00PM Scrub Tech ; Interventional Cardiology [facility] Cardiology Clinic [phone] 07/25/23 1:20PM Home oxygen therapy: None Arrangements for VNA/home care: None General Instructions None Discharge References/Attachments None To-Do List To-Do List Future Appointments Provider Department Dept Phone 07/25/2023 1:20 PM Olga Chavarria PA Cardiology at [facility] Arrive at: Commercial Front Load Operator Area [phone] Future Orders Complete By Expires Referral to Cardiac Rehab [[id number] Custom] As directed Process Instructions: If no progress note charted, please enter Clinical details in comments. Scheduling Instructions: Questions: My question or request is: STEMI. Cardiac rehab at [facility]. Provider Contact Information: MD [address] / [place] [phone] Signed: John Katz MD Discharged: 06/07/2023 Associated [...] Jonathan Rojas MD 06/07/23 1:40 PM Pager #[phone] documented in this encounter Discharge Instructions * Patient Instructions* [place] ViraDO - 06/06/2023 2:07 PM EDT Shoshana, You [...] of 8AM-5PM please call the Cardiology Clinic [phone] to speak with a nurse. All other hours please call the Hospital Fitness Services Manager [phone] and ask to speak to the special events planner on-call. Return to work: One week Driving: No driving for 48 hours after cath Follow up Appointments: Doctor Where Phone # Date Time [place] [address] [address] 06/20/23 1:00PM Scrub Tech ; Interventional Cardiology [facility] Cardiology 4A Clinic [phone] 07/25/23 1:20PM Home oxygen therapy: None Arrangements [...] mouth daily. 90 tablet 3 06/07/2023 08/04/2023 BASAGLAR KWIKPEN U-100 INSULIN 100 unit/mL (3 [...] no bleeding or hematoma present * Ishan Young DO - 06/06/2023 9:14 AM EDT Inpatient Cardiology Progress Note Patient Name: Shoshana Russo Date of Admission: 06/04/2023 ( Hospital Day 2 days ) Service: S1 ID: Shoshana Russo is a 47 y.o. male w/ PMHx of WI s/p 2x MARIALUISA to RCA and Lcx [...] responsive. Without focal deficit Labs Recent Labs 06/06/2335606/05/23 03006/04/23 1857 WBC 10.6* 10.7* 13.9* HGB 10.2* 10.6* 11.4* HCT 34.1* 36.4* 38.8* PLATELET 254 262 272 Recent Labs 06/06/2335606/05/23 0304 06/04/23 1857 NA 136 138 137 K 5.1* 5.0 5.3* CL 104 107 104 CO2 22 22 23 BUN 32* 30* 29* CREATININE 2.57* 2.16* 2.07* Recent Labs 06/06/2335606/05/23 03006/04/23 1857 CALCIUM 8.9 8.6 9.1 MAGNESIUM 0.91 0.89 [...] a 47 y.o. male w/ PMHx of WI s/p 2x MARIALUISA to RCA and Lcx [...] #Routine Diet: Daily Healthy Menu Choices/Cardiac diet ([facility]-Diet) DVT Prophylaxis: SC heparin GI Prophylaxis: pantoprazole Dispo: Pending clinical course Code Status: Attempt Cardiopulmonary Resuscitation - Inpatient Ishan Young, Internal Medicine PGY-1 Pager [phone], M1-S2 Service Associated attestation - Jonathan Rojas [...] (inpatient or outpatient) Jonathan Rojas MD Pager [phone] Clinic: [phone] 06/06/23 3:36 PM Attending Attestation Attending Attestation [...] of two midnights or is on the [facility] inpatient only procedure list [...] 36.4* 38.8* PLATELET 262 272 Recent Labs 06/05/2330306/04/23 1857 NA 138 137 K 5.0 5.3* CL 107 104 CO2 22 23 BUN 30* 29* CREATININE 2.16* 2.07* Recent Labs 06/05/2330306/04/23 1857 CALCIUM 8.6 9.1 MAGNESIUM 0.89 0.85 [...] a 47 y.o. male w/ PMHx of WI s/p 2x MARIALUISA to RCA and Lcx in 2019, HTN, HLD, T2DM presenting as transfer for STEMI. 06/04: Recovering well from [facility] w/ PCI and placement of 2x MARIALUISA [...] #Routine Diet: Daily Healthy Menu Choices/Cardiac diet ([facility]-Diet) DVT Prophylaxis: SC heparin GI Prophylaxis: pantoprazole Dispo: Pending clinical course Code Status: Attempt Cardiopulmonary Resuscitation - Inpatient Ishan Young DO Internal Medicine PGY-1 Pager [phone], M1-S1 Service Associated attestation - Jonathan Rojas [...] (inpatient or outpatient) Jonathan Rojas MD Pager [phone] Clinic: [phone] 06/05/23 6:52 PM Attending Attestation Attending Attestation [...] of two midnights or is on the [facility] inpatient only procedure list (status C) due to: acute myocardial infarction requiring titration of IV medication and fluid monitoring * Antoni Gonzalez MD - 06/04/2023 2:13 PM EDT STEMI Alert Note Index Event Data Hospital to which patient presented: [facility] Medical History (prior to current presentation) Atrial [...] Not contraindicated Plan STEMI Alert called: Yes National Sales Representative Activated by: Manager Field Services Initial Disposition: Admit National Sales Representative documented in this encounter H&P Notes * Leo Finnegan MD - 06/04/2023 6:33 PM EDT Images from the original note were not included. Cardiology H&P Patient info: Name: Shoshana Russo : 1975 PCP: Bandar Hahn MD PCP phone number: [phone] Date of Admission: 06/04/2023 ( Hospital Day 0 days ) Attending:Azul Mccoy MD ID: Shoshana Russo is a 47 y.o. male w/ PMHx of WI s/p 2x MARIALUISA to RCA and Lcx in 2019, HTN, HLD, T2DM presenting as transfer for STEMI. 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 Had been on ASA + Plavix with Plavix discontinued ~a year ago. He endorses new back pain with radiation to b/l arms starting yesterday morning, progressing to chest pressure and JULES c/f WI. Initially presented to [facility] ED. OSH ED Course: VSS on presentation, BP 130s/70s w/ HR 100s. EKG showed sinus tachycardia with ST-elevations in inferior leads, borderline elevations in V2- V4. Loaded with ASA + Plavix and started heparin gtt prior to transfer to [facility]. Labs obtained but results not sent from OSH. Received C. Per preliminary C report, LHC showed proximal 100% disease in [...] Daily sodium chloride 0.9% 100 mL/hr (06/04/23 4868) Objective: Vitals Last value Range last 24 [...] in the last 7068 hours. Invalid input(s): [id number] Recent Labs 06/04/23 1734 POCGLU 201* Heme No results for input(s): LDH, HAPTOGLOBIN, URICACID in the last 168 hours. ABG (Arterial Blood Gas) No results found for: PHART, PO2ART, UCI3RKR, FOH2JQD Microbiology: Microbiology Results (Last 30 days) No [...] a 47 y.o. male w/ PMHx of WI s/p 2x MARIALUISA to RCA and Lcx in 2019, HTN, HLD, T2DM presenting as transfer for STEMI. 06/03: Recovering well from [facility] w/ PCI and placement of 2x MARIALUISA [...] #Routine Diet: Daily Healthy Menu Choices/Cardiac diet ([facility]-Diet) DVT Prophylaxis: SC heparin GI Prophylaxis: pantoprazole Code Status: Attempt Cardiopulmonary Resuscitation - Inpatient Dispo: Pending clinical course Mirna Gan MD Internal Medicine, PGY-2 Cardiology, M1-S1, #[id number] 06/04/23 6:34 PM Cardiovascular Medicine Attending I [...] TTE prior to discharge. Leo Finnegan MD [facility] pager [phone] documented in this encounter Miscellaneous Notes * [...] in an outpatient cardiac rehabilitation program at [facility] was discussed. Patient agrees to a referral [...] - at bedside, participating in care - 1942 Showered per order ok, no events - [...] Admission order reviewed. Health/Prescription Coverage: Primary Insurance: [facility] Payor: [facility] / Plan: [facility] / Product Type: *No Product type* / Secondary Insurance: N/A Prescription Coverage: Yes Preferred Pharmacy: [facility] [address] [place] [id number] Advance Care Planning: Attempt Cardiopulmonary Resuscitation - Inpatient <no information> -Advanced Directive: No, declines Current Functional Ability: Assistive Person Functional Status Prior to Admission: Independent Home Environment: Others in the home: alone. Current Living Arrangements: home/apartment/condo. Current DME: none [address] [address] Social & Family Supports: Extended Emergency Contact [...] via family when medically ready. Registered Nurse Dean For Student Affairs / Bran Mixer will continue to follow patient???s progress and remain available if situation changes for coordination of care, psychosocial support and/or discharge planning. Office of Care Management Price Buckley RN Case Manager Pgr: [phone] * Consult Note - Bryant Ruchi N, CURING ROOM WORKER - 06/05/2023 11:22 AM EDT Diabetes Management Team Inpatient Consult Date of Consultation: 06/05/2023 Consult Requested by: Cardiology Reason for Consultation: Shoshana Russo is a 47 y.o. male with PMH significant for T2DM who was admitted on 06/04/2023 currently being treated for STEMI. We are being consulted to assist with diabetes management and to provide a review of intermediate manager diabetes care. Diabetes History: Shoshana Russo has [...] care for your patient Ruchi Hurtado APRN [facility] Endocrinology Diabetes Management Pager [phone] minutes of this 80 minute visit [...] for Transition of Care 06/04/20231823 by Codie Jimenez RN Outcome: Ongoing (Interventions Implemented as Appropriate) 06/04/20231823 by Codie Jimenez RN Outcome: Ongoing (Interventions Implemented as Appropriate) [...] Procedure Note: Patient Name: Shoshana Russo : [id number] MR#: [id number] Case Date: 06/04/2023 Fitness Services Manager: Surgeon(s) and Role: * Azul Rowley MD - Primary * Olga Chavarria PA - Physician [employer] Truck Driver Preoperative diagnosis: STEMI Postoperative diagnosis: * STEMI [...] AM EST Office Visit [place] [address] Donavon Frey MD [facility] [place] [address] 02/06/2024 1:00 PM EST Office Visit Cardiology at [address] [phone] Adrian Tello MD [facility] [place] [address] 04/25/2024 10:30 AM EST Office Visit Sleep Center at [facility] [address] [place] [address] Maria De Jesus Lange, [place] [facility] [place] [address] Scheduled Orders Name Type Priority Associated Diagnoses [...] 5:40 AM EDT DIFFERENTIAL, AUTOMATED Routine 06/07/19 5:40 AM EDT CBC (WITH DIFF) Routine [...] Glucose, POC 196 65 - 199 mg/dL [facility] Comment: Supplemental ranges: <140 mg/dL before meals <180 mg/dL all other times of the day Blood 06/07/2023 11:3 3 AM EDT 06/07/2023 11:33 AM EDT Jonathan Rojas MD POINT OF CARE T EST ORDERABLES Performing Organization Address [facility]/ZIP Co de Phone Number [facility] [place] [address] * POCT Glucose (06/07/2023 7:36 AM EDT) Glucose, POC 146 65 - 199 mg/dL [facility] Comment: Supplemental ranges: <140 mg/dL before meals <180 mg/dL all other times of the day Blood 06/07/2023 7:36 AM EDT 06/07/2023 7:36 AM EDT Jonathan Rojas MD POINT OF CARE T EST ORDERABLES Performing Organization Address City/[facility]/ZIP Co de Phone Number [facility] [place] [address] * (ABNORMAL) Differential, Automated (06/07/2023 5:40 AM EDT) Neutrophil % 74.2 % [facility] Neutrophil Absolute 6.39(H) 1.70 - 6.10 x10(3)/mc L [facility] Lymph % 16.6 % [facility] Lymphocytes Abs 1.4 0.9 - 3.2 x10(3)/mc L [facility] Monocyte % 6.7 % [facility] Monocyte Abs 0.6 0.3 - 0.9 x10(3)/[facility] Eos % 1.5 % [facility] Eosinophils Abs 0.1 0.0 - 0.4 x10(3)/[facility] Basophil % 0.5 % [facility] Baso Absolute 0.0 0.0 - 0.1 x10(3)/[facility] Immature Gran % 0.50 % [facility] Comment: Immature granulocytes(IG's)percentage and absolute count will include metamyelocytes, myelocytes, and promyelocytes. Blood smears from CBCs yielding IG's will be scanned manually for concordance. If this scan disagrees with the automated IG or if promyelocytes are noted, a manual differential will be performed. Immature Gran Absolute 0.04 0.00 - 0.04 x10(3)/[facility] Blood 06/07/2023 5:40 AM EDT 06/07/2023 5:48 AM EDT Narrative Resulting Agency Comment Spec In Lab Mirna Gan MD HEMATOLOGY ORDERABLE S [facility] [place] [address] * (ABNORMAL) Hemogram (06/07/2023 5:40 AM EDT) White Blood Cell 8.6 4.0 - 9.5 x10(3)/[facility] Red Blood Cell 4.77 4.58 - 5.54 x10(6)/[facility] Hemoglobin 9.7(L) 13.7 - 16.5 g/dL [facility] Hematocrit 33.7(L) 40.5 - 48.5 % [facility] Mean Cell Volume 70.6(L) 82.9 - 93.1 fL [facility] Mean Cell Hemoglobin 20.3(L) 27.5 - 32.1 pg [facility] Mean Cell Hemoglobin Concentration 28.8(L) 32.0 - 35.7 g/dL [facility] Platelet 237 145 - 357 x10(3)/mc L [facility] RDW Standard Deviation 45.1(H) 36.0 - 45.0 [facility] RDW coefficient of variation 18.2(H) 11.4 - 13.8 % [facility] Mean Platelet Volume 10.9 7.6 - 12.9 [facility] NRBC% auto 0.0 % [facility] NRBC Absolute 0.000 0.000 - 0.000 x10(3)/mc L [facility] Blood 06/07/2023 5:40 AM EDT 06/07/2023 5:48 AM EDT Narrative Resulting Agency Comment Spec In Lab Mirna Gan MD HEMATOLOGY ORDERABLE S Performing Organization Address City/[facility]/ZIP Co de Phone Number [facility] [place] [address] * Magnesium (06/07/2023 5:40 AM EDT) Magnesium 0.98 0.69 - 1.07 mmol/L [facility] Blood 06/07/2023 5:40 AM EDT 06/07/2023 5:48 AM EDT Narrative Resulting Agency Comment Spec In Lab Azul Mccoy MD CHEMISTRY ORDERABLE S [facility] [place] [address] * (ABNORMAL) Basic Metabolic Panel (non-fasting) (06/07/2023 5:40 AM EDT) Glucose 147 65 - 199 mg/dL [facility] Comment:Diabetes: >=200 mg/d L plus symptoms Blood Urea Nitrogen 34(H) 10 - 20 mg/dL [facility] Creatinine 2.49(H) 0.80 - 1.50 mg/dL [facility] Sodium 136 135 - 145 mmol/L [facility] Potassium 4.7 3.5 - 5.0 mmol/L [facility] Comment: Please note: ??Patients with WBC >100,000 may have falsely elevated Potassium levels. ??For accurate Potassium quantification in these patients send serum separator tube (gold top) for subsequent determinations. ??Contact the Clinical Chemistry Laboratory if there are any questions. Chloride 103 98 - 107 mmol/L [facility] Carbon Dioxide 21(L) 22 - 31 mmol/L [facility] Anion Gap 12 5 - 15 mmol/L [facility] Calcium 8.8 8.5 - 10.5 mg/dL [facility] Est Glomerular Filtration Rate 32(L) >=60 mL/min/1. 73 m?? [facility] Comment: This patient's estimated GFR [...] Lab Azul Mccoy MD CHEMISTRY ORDERABLE S [facility] [place] [address] * POCT Glucose (06/07/2023 4:14 AM EDT) Glucose, POC 140 65 - 199 mg/dL [facility] Comment: Supplemental ranges: <140 mg/dL before meals <180 mg/dL all other times of the day Blood 06/07/2023 4:14 AM EDT 06/07/2023 4:14 AM EDT Jonathan Rojas MD POINT OF CARE T EST ORDERABLES [facility] [place] [address] * POCT Glucose (06/07/2023 12:28 AM EDT) Glucose, POC 122 65 - 199 mg/dL [facility] Comment: Supplemental ranges: <140 mg/dL before meals <180 mg/dL all other times of the day Blood 06/07/2023 12:2 8 AM EDT 06/07/2023 12:28 AM EDT Jonathan Rojas MD POINT OF CARE T EST ORDERABLES Performing Organization Address City/[facility]/ZIP Co de Phone Number [facility] [place] [address] * POCT Glucose (06/06/2023 11:20 PM EDT) Glucose, POC 98 65 - 199 mg/dL [facility] Comment: Supplemental ranges: <140 mg/dL before meals <180 mg/dL all other times of the day Blood 06/06/2023 11:2 0 PM EDT 06/06/2023 11:20 PM EDT Jonathan Rojas MD POINT OF CARE T EST ORDERABLES [facility] [place] [address] * POCT Glucose (06/06/2023 8:07 PM EDT) Glucose, POC 176 65 - 199 mg/dL [facility] Comment: Supplemental ranges: <140 mg/dL before meals <180 mg/dL all other times of the day Blood 06/06/2023 8:07 PM EDT 06/06/2023 8:07 PM EDT Jonathan Rojas MD POINT OF CARE T EST ORDERABLES [facility] [place] [address] * (ABNORMAL) POCT Glucose (06/06/2023 3:05 PM EDT) Glucose, POC 233(H) 65 - 199 mg/dL [facility] Comment: Supplemental ranges: <140 mg/dL before meals <180 mg/dL all other times of the day Blood 06/06/2023 3:05 PM EDT 06/06/2023 3:05 PM EDT Jonathan Rojas MD POINT OF CARE T EST ORDERABLES Performing Organization Address [facility]/ZIP Co de Phone Number [facility] [place] [address] * POCT Glucose (06/06/2023 11:00 AM EDT) Glucose, POC 183 65 - 199 mg/dL [facility] Comment: Supplemental ranges: <140 mg/dL before meals <180 mg/dL all other times of the day Blood 06/06/2023 11:0 0 AM EDT 06/06/2023 11:00 AM EDT Jonathan Rojas MD POINT OF CARE T EST ORDERABLES Performing Organization Address City/[facility]/ZIP Co de Phone Number [facility] [place] [address] * POCT Glucose (06/06/2023 7:29 AM EDT) Glucose, POC 184 65 - 199 mg/dL [facility] Comment: Supplemental ranges: <140 mg/dL before meals <180 mg/dL all other times of the day Blood 06/06/2023 7:29 AM EDT 06/06/2023 7:29 AM EDT Jonathan Rojas MD POINT OF CARE T EST ORDERABLES [facility] [place] [address] * (ABNORMAL) Differential, Automated (06/06/2023 3:57 AM EDT) Neutrophil % 76.6 % [facility] Neutrophil Absolute 8.11(H) 1.70 - 6.10 x10(3)/mc L [facility] Lymph % 14.5 % [facility] Lymphocytes Abs 1.5 0.9 - 3.2 x10(3)/mc L [facility] Monocyte % 6.5 % [facility] Monocyte Abs 0.7 0.3 - 0.9 x10(3)/mc L [facility] Eos % 1.3 % [facility] Eosinophils Abs 0.1 0.0 - 0.4 x10(3)/ L [facility] Basophil % 0.6 % [facility] Baso Absolute 0.1 0.0 - 0.1 x10(3)/mc L [facility] Immature Gran % 0.50 % [facility] Comment: Immature granulocytes(IG's)percentage and absolute count will include metamyelocytes, myelocytes, and promyelocytes. Blood smears from CBCs yielding IG's will be scanned manually for concordance. If this scan disagrees with the automated IG or if promyelocytes are noted, a manual differential will be performed. Immature Gran Absolute 0.05(H) 0.00 - 0.04 x10(3)/mc L [facility] Blood 06/06/2023 3:57 AM EDT 06/06/2023 4:08 AM EDT Narrative Resulting Agency Comment Spec In Lab Mirna Gan MD HEMATOLOGY ORDERABLE S [facility] [place] [address] * (ABNORMAL) Hemogram (06/06/2023 3:57 AM EDT) White Blood Cell 10.6(H) 4.0 - 9.5 x10(3)/mc L [facility] Red Blood Cell 4.87 4.58 - 5.54 x10(6)/mc L [facility] Hemoglobin 10.2(L) 13.7 - 16.5 g/dL [facility] Hematocrit 34.1(L) 40.5 - 48.5 % [facility] Mean Cell Volume 70.0(L) 82.9 - 93.1 fL [facility] Mean Cell Hemoglobin 20.9(L) 27.5 - 32.1 pg [facility] Mean Cell Hemoglobin Concentration 29.9(L) 32.0 - 35.7 g/dL [facility] Platelet 254 145 - 357 x10(3)/mc L [facility] RDW Standard Deviation 45.3(H) 36.0 - 45.0 [facility] RDW coefficient of variation 18.4(H) 11.4 - 13.8 % [facility] Mean Platelet Volume 10.9 7.6 - 12.9 [facility] NRBC% auto 0.0 % [facility] NRBC Absolute 0.000 0.000 - 0.000 x10(3)/mc L [facility] Blood 06/06/2023 3:57 AM EDT 06/06/2023 4:08 AM EDT Narrative Resulting Agency Comment Spec In Lab Mirna Gan MD HEMATOLOGY ORDERABLE S [facility] [place] [address] * Magnesium (06/06/2023 3:57 AM EDT) Magnesium 0.91 0.69 - 1.07 mmol/L [facility] Blood 06/06/2023 3:57 AM EDT 06/06/2023 4:08 AM EDT Narrative Resulting Agency Comment Spec In Lab Azul Mccoy MD CHEMISTRY ORDERABLE S [facility] [place] [address] * (ABNORMAL) Basic Metabolic Panel (non-fasting) (06/06/2023 3:57 AM EDT) Glucose 193 65 - 199 mg/dL [facility] Comment:Diabetes: >=200 mg/d L plus symptoms Blood Urea Nitrogen 32(H) 10 - 20 mg/dL [facility] Creatinine 2.57(H) 0.80 - 1.50 mg/dL [facility] Sodium 136 135 - 145 mmol/L [facility] Potassium 5.1(H) 3.5 - 5.0 mmol/L [facility] Comment: Please note: ??Patients with WBC >100,000 may have falsely elevated Potassium levels. ??For accurate Potassium quantification in these patients send serum separator tube (gold top) for subsequent determinations. ??Contact the Clinical Chemistry Laboratory if there are any questions. Chloride 104 98 - 107 mmol/L [facility] Carbon Dioxide 22 22 - 31 mmol/L [facility] Anion Gap 10 5 - 15 mmol/L [facility] Calcium 8.9 8.5 - 10.5 mg/dL [facility] Est Glomerular Filtration Rate 30(L) >=60 mL/min/1. 73 m?? [facility] Comment: This patient's estimated GFR [...] MD CHEMISTRY ORDERABLE S Performing Organization Address City/[facility]/ZIP Co de Phone Number [facility] [place] [address] * POCT Glucose (06/06/2023 3:04 AM EDT) Glucose, POC 159 65 - 199 mg/dL [facility] Comment: Supplemental ranges: <140 mg/dL before meals <180 mg/dL all other times of the day Blood 06/06/2023 3:04 AM EDT 06/06/2023 3:04 AM EDT Jonathan Rojas MD POINT OF CARE T EST ORDERABLES Performing Organization Address City/[facility]/ZIP Co de Phone Number [facility] [place] [address] * POCT Glucose (06/05/2023 11:05 PM EDT) Glucose, POC 136 65 - 199 mg/dL [facility] Comment: Supplemental ranges: <140 mg/dL before meals <180 mg/dL all other times of the day Blood 06/05/2023 11:0 5 PM EDT 06/05/2023 11:05 PM EDT Jonathan Rojas MD POINT OF CARE T EST ORDERABLES [facility] [place] [address] * POCT Glucose (06/05/2023 7:44 PM EDT) Glucose, POC 156 65 - 199 mg/dL [facility] Comment: Supplemental ranges: <140 mg/dL before meals <180 mg/dL all other times of the day Blood 06/05/2023 7:44 PM EDT 06/05/2023 7:44 PM EDT Jonathan Rojas MD POINT OF CARE T EST ORDERABLES [facility] [place] [address] * POCT Glucose (06/05/2023 3:28 PM EDT) Glucose, POC 191 65 - 199 mg/dL [facility] Comment: Supplemental ranges: <140 mg/dL before meals <180 mg/dL all other times of the day Blood 06/05/2023 3:28 PM EDT 06/05/2023 3:28 PM EDT Jonathan Rojas MD POINT OF CARE T EST ORDERABLES [facility] [place] [address] * (ABNORMAL) POCT Glucose (06/05/2023 1:36 PM EDT) Glucose, POC 230(H) 65 - 199 mg/dL [facility] Comment: Supplemental ranges: <140 mg/dL before meals <180 mg/dL all other times of the day Blood 06/05/2023 1:36 PM EDT 06/05/2023 1:36 PM EDT Jonathan Rojas MD POINT OF CARE T EST ORDERABLES [facility] [place] [address] * (ABNORMAL) POCT Glucose (06/05/2023 11:36 AM EDT) Glucose, POC 256(H) 65 - 199 mg/dL [facility] Comment: Supplemental ranges: <140 mg/dL before meals <180 mg/dL all other times of the day Blood 06/05/2023 11:3 6 AM EDT 06/05/2023 11:36 AM EDT Jonathan Rojas MD POINT OF CARE T EST ORDERABLES [facility] [place] [address] * ECHO COMPLETE W CONTRAST (06/05/2023 11:29 AM EDT) EF 51 HEART[facility] SYSTEM Anatomical Region Laterality Modality Cardiac Other 06/05/2023 10:0 5 AM EDT Narrative 06/05/2023 11:56 AM EDT [address] [place] [address] ? Echocardiogram Report Name: SHOSHANA RUSSO ?Study Date: 06/05/2023 10:05 AMBP: 121/69 mmHg ? Patient Location: [address] : 1975 ? Height: 177 cm ? Account: [id number] Age: 47 yrs ? Weight: 119 kg Gender: Male ?BSA: 2.3 m2 Ordering Physician: JONATHAN ROJAS Referring Physician: OANH DUMAS Performed By: Phuong Cornell Reason For Study: ST elevation myocardial infarction involving right coronary artery Exam Location: [facility]. Interpretation Summary Left ventricular systolic function is [...] inferior WMA, but RV was normal. Procedure Complete-63956. Image enhancement Optison was used for left [...] Note Heladio Shetty MD - 06/05/2023 [address] [place] [address] Echocardiogram Report Name: ANNASHOSHANA NATH Study Date: 0:05 AMBP: 121/69 mmHg Patient Location: [address] : 1975 Height: 177 cm Account: [id number] Age: 47 yrs Weight: 119 kg Gender: Male BSA: 2.3 m2 Ordering Physician: JONATHAN ROJAS Referring Physician: OANH DUMAS Performed By: Phuong Cornell Reason For Study: ST elevation myocardial infarction involving rightcoronary artery Exam Location: [facility]. Interpretation Summary Left ventricular systolic function is [...] inferior WMA, but RV was normal. Procedure Complete-34161. Image enhancement Optison was used for left [...] Glucose, POC 175 65 - 199 mg/dL [facility] Comment: Supplemental ranges: <140 mg/dL before meals <180 mg/dL all other times of the day Blood 06/05/2023 7:54 AM EDT 06/05/2023 7:54 AM EDT Jonathan Rojas MD POINT OF CARE T EST ORDERABLES [facility] [place] [address] * POCT Glucose (06/05/2023 3:09 AM EDT) [facility] Glucose, POC 165 65 - 199 mg/dL [facility] Comment: Supplemental ranges: <140 mg/dL before meals <180 mg/dL all other times of the day Blood 06/05/2023 3:09 AM EDT 06/05/2023 3:09 AM EDT Azul Mccoy MD POINT OF CARE TEST ORDERABLES Performing Organization Address [facility] Co de Phone Number [facility] [place] [address] * LDL Cholesterol, Direct (06/05/2023 3:04 AM EDT) [facility] LDL Cholesterol, Direct 50 mg/dL [facility] Comment: Desirable: ? <100 mg/dL Above Desirable: 100-129 mg/dL Borderline High: 130-159 mg/dL High: ?160-189 mg/dL Very High: ? >pb=083 mg/dL If not reaching LDL goals on [...] In Lab Mirna Gan MD CHEMISTRY ORDERABLES Performing Organization Address [facility]/ZIP Co de Phone Number [facility] [place] [address] * (ABNORMAL) Differential, Automated (06/05/2023 3:04 AM EDT) [facility] Neutrophil % 71.0 % [facility] Neutrophil Absolute 7.63(H) 1.70 - 6.10 x10(3)/[facility] Lymph % 17.4 % [facility] Lymphocytes Abs 1.9 0.9 - 3.2 x10(3)/[facility] Monocyte % 8.9 % [facility] Monocyte Abs 1.0(H) 0.3 - 0.9 x10(3)/[facility] Eos % 1.5 % [facility] Eosinophils Abs 0.2 0.0 - 0.4 x10(3)/[facility] Basophil % 0.7 % [facility] Baso Absolute 0.1 0.0 - 0.1 x10(3)/[facility] Immature Gran % 0.50 % [facility] Comment: Immature granulocytes(IG's)percentage and absolute count will include metamyelocytes, myelocytes, and promyelocytes. Blood smears from CBCs yielding IG's will be scanned manually for concordance. If this scan disagrees with the automated IG or if promyelocytes are noted, a manual differential will be performed. Immature Gran Absolute 0.05(H) 0.00 - 0.04 x10(3)/[facility] Blood 06/05/2023 3:04 AM EDT 06/05/2023 3:12 AM EDT Narrative Resulting Agency Comment Spec In Lab Mirna Gan MD HEMATOLOGY ORDERABLE S [facility] [place] [address] * (ABNORMAL) Hemogram (06/05/2023 3:04 AM EDT) White Blood Cell 10.7(H) 4.0 - 9.5 x10(3)/[facility] Red Blood Cell 5.20 4.58 - 5.54 x10(6)/mc L [facility] Hemoglobin 10.6(L) 13.7 - 16.5 g/dL [facility] Hematocrit 36.4(L) 40.5 - 48.5 % [facility] Mean Cell Volume 70.0(L) 82.9 - 93.1 fL [facility] Mean Cell Hemoglobin 20.4(L) 27.5 - 32.1 pg [facility] Mean Cell Hemoglobin Concentration 29.1(L) 32.0 - 35.7 g/dL [facility] Platelet 262 145 - 357 x10(3)/mc L [facility] RDW Standard Deviation 44.9 36.0 - 45.0 fL [facility] RDW coefficient of variation 18.9(H) 11.4 - 13.8 % [facility] Mean Platelet Volume 11.3 7.6 - 12.9 fL [facility] NRBC% auto 0.0 % [facility] NRBC Absolute 0.000 0.000 - 0.000 x10(3)/mc L [facility] Blood 06/05/2023 3:04 AM EDT 06/05/2023 3:12 AM EDT Narrative Resulting Agency Comment Spec In Lab Mirna Gan MD HEMATOLOGY ORDERABLE S Performing Organization Address City/[facility]/ZIP Co de Phone Number [facility] [place] [address] * Magnesium (06/05/2023 3:04 AM EDT) Magnesium 0.89 0.69 - 1.07 mmol/L [facility] Blood 06/05/2023 3:04 AM EDT 06/05/2023 3:12 AM EDT Narrative Resulting Agency Comment Spec In Lab Azul Mccoy MD CHEMISTRY ORDERABLE S [facility] [place] [address] * (ABNORMAL) Basic Metabolic Panel (non-fasting) (06/05/2023 3:04 AM EDT) Glucose 174 65 - 199 mg/dL [facility] Comment:Diabetes: >=200 mg/d L plus symptoms Blood Urea Nitrogen 30(H) 10 - 20 mg/dL [facility] Creatinine 2.16(H) 0.80 - 1.50 mg/dL [facility] Sodium 138 135 - 145 mmol/L [facility] Potassium 5.0 3.5 - 5.0 mmol/L [facility] Comment: Please note: ??Patients with WBC >100,000 may have falsely elevated Potassium levels. ??For accurate Potassium quantification in these patients send serum separator tube (gold top) for subsequent determinations. ??Contact the Clinical Chemistry Laboratory if there are any questions. Chloride 107 98 - 107 mmol/L [facility] Carbon Dioxide 22 22 - 31 mmol/L [facility] Anion Gap 9 5 - 15 mmol/L [facility] Calcium 8.6 8.5 - 10.5 mg/dL [facility] Est Glomerular Filtration Rate 38(L) >=60 mL/min/1. 73 m?? [facility] Comment: This patient's estimated GFR [...] Lab Azul Mccoy MD CHEMISTRY ORDERABLE S [facility] [place] [address] * Lipid Panel (Reflex Direct LDL) (06/05/2023 3:04 AM EDT) [facility] Cholesterol, Total 128 mg/dL [facility] Comment: Desirable: ? <200 mg/dL Borderline High: 200-239 mg/dL Higher: ?>xc=608 mg/dL Triglyceride 405 mg/dL [facility] Comment: Normal: ?<150 mg/dL Borderline High: 150-199 mg/dL High: ?200-499 mg/dL Very High: ? >qr=294 mg/dL HDL Cholesterol 25 mg/dL [facility] Comment: Females: High Risk: <50 mg/dL Males: High Risk: <40 mg/dL LDL Cholesterol Not Calculated [facility] Comment: Calculated LDL value is not valid for triglycerides greater than 400 mg/dl. Desirable: ? <100 mg/dL Above Desirable: 100-129 mg/dL Borderline High: 130-159 mg/dL High: ?160-189 mg/dL Very High: ? >os=033 mg/dL Lipid Interpretation See Note [facility] Comment: It is important to [...] ACC/AHA Guidelines (most recently Lakia et al. [facility] 11/23/21): For individuals with atherosclerotic cardiovascular disease (ASCVD)or LDL >dv=163 mg/dL, use a high-intensity statin (40-80 mg [...] MD CHEMISTRY ORDERABLE S Performing Organization Address City/State/[facility] Co de Phone Number [facility] [place] [address] * (ABNORMAL) Hemoglobin A1c (06/05/2023 3:04 AM EDT) Hemoglobin A1c 11.2(H) 4.3 - 5.6 % [facility] Comment: Reference Range: 4.3 - [...] Mellitus, Diabetes Care 2013; 36: Suppl. 1, O97-72 Estimated Average Glucose 273 mg/dL [facility] Blood 06/05/2023 3:04 AM EDT 06/05/2023 3:12 AM EDT Narrative Resulting Agency Comment Spec In Lab Azul Mccoy MD CHEMISTRY ORDERABLE S [facility] [place] [address] * POCT Glucose (06/04/2023 11:04 PM EDT) Glucose, POC 179 65 - 199 mg/dL [facility] Comment: Supplemental ranges: <140 mg/dL before meals <180 mg/dL all other times of the day Blood 06/04/2023 11:0 4 PM EDT 06/04/2023 11:04 PM EDT Azul Mccoy MD POINT OF CARE TEST ORDERABLES Performing Organization Address [facility]/ZIP Co de Phone Number [facility] [place] [address] * POCT Glucose (06/04/2023 7:52 PM EDT) Glucose, POC 167 65 - 199 mg/dL [facility] Comment: Supplemental ranges: <140 mg/dL before meals <180 mg/dL all other times of the day Blood 06/04/2023 7:52 PM EDT 06/04/2023 7:52 PM EDT Azul Mccoy MD POINT OF CARE TEST ORDERABLES [facility] [place] [address] * EKG 12 Lead (06/04/2023 7:05 PM EDT) Ventricular rate 94 BPM MUSE SYSTEM Atrial Rate 94 BPM MUSE SYSTEM P-R Interval 182 ms MUSE SYSTEM QRS Duration 98 ms MUSE SYSTEM Q-T Interval 340 ms MUSE SYSTEM QTC Calculated (Bezet) 425 ms MUSE SYSTEM Calculated P [place] 42 degrees MUSE SYSTEM Calculated R [place] 3 degrees MUSE SYSTEM Calculated T [place] 43 degrees MUSE SYSTEM INTERPRETATION Normal sinus [...] Scan, Peripheral Blood (06/04/2023 6:57 PM EDT) Plat estimate Normal [facility] RBC Morphology Abnormal [facility] Microcyte 1-5 /HPF [facility] Hypochromia Slight [facility] Ovalocytes 1-5 /HPF [facility] Blood 06/04/2023 6:57 PM EDT 06/04/2023 7:03 PM EDT Narrative Resulting Agency Comment Spec In Lab Mirna Gan MD HEMATOLOGY ORDERABLE S [facility] [place] [address] * (ABNORMAL) Differential, Automated (06/04/2023 6:57 PM EDT) Neutrophil % 78.5 % [facility] Neutrophil Absolute 10.92(H) 1.70 - 6.10 x10(3)/mc L [facility] Lymph % 12.8 % [facility] Lymphocytes Abs 1.8 0.9 - 3.2 x10(3)/ L [facility] Monocyte % 6.4 % [facility] Monocyte Abs 0.9 0.3 - 0.9 x10(3)/[facility] Eos % 1.3 % [facility] Eosinophils Abs 0.2 0.0 - 0.4 x10(3)/[facility] Basophil % 0.6 % [facility] Baso Absolute 0.1 0.0 - 0.1 x10(3)/[facility] Immature Gran % 0.40 % [facility] Comment: Immature granulocytes(IG's)percentage and absolute count will include metamyelocytes, myelocytes, and promyelocytes. Blood smears from CBCs yielding IG's will be scanned manually for concordance. If this scan disagrees with the automated IG or if promyelocytes are noted, a manual differential will be performed. Immature Gran Absolute 0.05(H) 0.00 - 0.04 x10(3)/[facility] Blood 06/04/2023 6:57 PM EDT 06/04/2023 7:03 PM EDT Narrative Resulting Agency Comment Spec In Lab Mirna Gan MD HEMATOLOGY ORDERABLE S [facility] [place] [address] * (ABNORMAL) Hemogram (06/04/2023 6:57 PM EDT) White Blood Cell 13.9(H) 4.0 - 9.5 x10(3)/[facility] Red Blood Cell 5.61(H) 4.58 - 5.54 x10(6)/[facility] Hemoglobin 11.4(L) 13.7 - 16.5 g/dL [facility] Hematocrit 38.8(L) 40.5 - 48.5 % [facility] Mean Cell Volume 69.2(L) 82.9 - 93.1 fL [facility] Mean Cell Hemoglobin 20.3(L) 27.5 - 32.1 pg [facility] Mean Cell Hemoglobin Concentration 29.4(L) 32.0 - 35.7 g/dL [facility] Platelet 272 145 - 357 x10(3)/mc L [facility] RDW Standard Deviation 43.8 36.0 - 45.0 fL [facility] RDW coefficient of variation 18.8(H) 11.4 - 13.8 % [facility] Mean Platelet Volume 10.7 7.6 - 12.9 [facility] NRBC% auto 0.0 % [facility] NRBC Absolute 0.000 0.000 - 0.000 x10(3)/mc L [facility] Blood 06/04/2023 6:57 PM EDT 06/04/2023 7:03 PM EDT Narrative Resulting Agency Comment Spec In Lab Mirna Gan MD HEMATOLOGY ORDERABLE S [facility] [place] [address] * TSH (06/04/2023 6:57 PM EDT) Thyroid Stimulating Hormone 3.68 0.27 - 4.20 mcIU/mL [facility] Comment: Reference Interval (mcIU/mL): Females: ??First Trimester: 0.23-3.88 ??Second Trimester: 0.22-3.90 ??Third Trimester: 0.44-4.66 Blood 06/04/2023 6:57 PM EDT 06/04/2023 7:03 PM EDT Narrative Resulting Agency Comment Spec In Lab Azul Mccoy MD CHEMISTRY ORDERABLE S [facility] [place] [address] * Magnesium (06/04/2023 6:57 PM EDT) Magnesium 0.85 0.69 - 1.07 mmol/L [facility] Blood 06/04/2023 6:57 PM EDT 06/04/2023 7:03 PM EDT Narrative Resulting Agency Comment Spec In Lab Azul Mccoy MD CHEMISTRY ORDERABLE S Performing Organization Address [facility]/ZIP Co de Phone Number [facility] [place] [address] * (ABNORMAL) Basic Metabolic Panel (non-fasting) (06/04/2023 6:57 PM EDT) Pathologist [facility] Glucose 193 65 - 199 mg/dL [facility] Comment:Diabetes: >=200 mg/d L plus symptoms Blood Urea Nitrogen 29(H) 10 - 20 mg/dL [facility] Creatinine 2.07(H) 0.80 - 1.50 mg/dL [facility] Sodium 137 135 - 145 mmol/L [facility] Potassium 5.3(H) 3.5 - 5.0 mmol/L [facility] Comment: Please note: ??Patients with WBC >100,000 may have falsely elevated Potassium levels. ??For accurate Potassium quantification in these patients send serum separator tube (gold top) for subsequent determinations. ??Contact the Clinical Chemistry Laboratory if there are any questions. Chloride 104 98 - 107 mmol/L [facility] Carbon Dioxide 23 22 - 31 mmol/L [facility] Anion Gap 10 5 - 15 mmol/L [facility] Calcium 9.1 8.5 - 10.5 mg/dL [facility] Est Glomerular Filtration Rate 40(L) >=60 mL/min/1. 73 m?? [facility] Comment: This patient's estimated GFR [...] MD CHEMISTRY ORDERABLE S Performing Organization Address [facility] Co de Phone Number [facility] [place] [address] * (ABNORMAL) POCT Glucose (06/04/2023 5:34 PM EDT) [facility] Glucose, POC 201(H) 65 - 199 mg/dL [facility] Comment: Supplemental ranges: <140 mg/dL before meals <180 mg/dL all other times of the day Blood 06/04/2023 5:34 PM EDT 06/04/2023 5:34 PM EDT Azul Mccoy MD POINT OF CARE TEST ORDERABLES Performing Organization Address [facility] Co de Phone Number [facility] [place] [address] * CARDIAC CATHETERIZATION (06/04/2023 5:20 PM EDT) Anatomical Region Laterality Modality Other Narrative 06/14/2023 10:07 AM EDT ?[facility] ? Cardiac Catheterization/Intervention Report ? Patient Name: Brill, Shoshana M. ? Procedure Date: 06/04/2023 ? A #: [id number] ? Primary Physician: Azul Rowley I ? Case #: [id number] ? File Name: [id number] ? Catheterization Order Number: [id number] ? [facility] ? Final Report [place], [place] ? Patient Name: ? Shoshana M. Brill ? ID#: ?[id number] ? : ?1975 ? Procedure Date: ? June 04, 2023 ? Case #: ? [id number] ? Room: ? 6 ? Case Physician: [...] was ?designated as ASA Class IV. The HA clinical frailty scale is 3: ?Managing Well. ? Diagnostic Tests: ?Electrocardiography: ? EKG was assessed by ECG. EKG was Abnormal. EKG showed ST Deviation ? >= 0.5 mm. ?Medications Prior to Procedure: ? Angiotensin Converting Enzyme Inhibitor, Aspirin, Beta Yajaira and ? Statin. ? Indications for Diagnostic Cath: ?The priority of the diagnostic procedure was Emergent. The indication for ?the slab lifting supervisor visit is ACS less than or equal [...] 4 ?guiding catheter and a 3.5 Fr [place] 20 Mhz using Manual ?pullback. ??Imaging was [...] 4 guiding catheter and a 3.5 Fr [place] 20 Mhz using Manual ?pullback. ??Imaging was [...] ??A ? premounted 3.00 x 18 mm [place] (MARIALUISA) was deployed with ? a maximum [...] ??A ? premounted 2.75 x 38 mm [place] (MARIALUISA) was deployed with ? a maximum [...] dose administered prior to arrival in the slab lifting supervisor. ?Recommended anti-platelet/anti-thrombotic regimen: ?Start aspirin 81 mg daily now and continue for indefinitely. ?Start clopidogrel 75 mg daily now and continue for 12 months then stop. ?These recommendations are made at the time of the intervention. Patient ?and provider preferences or a changing clinical situation may require ?modification of this regimen. Consult [facility] Interventional Cardiology for ?questions. ?The 1 year [...] Procedure Note Azul Rowley MD - 09/13/2023 [facility] Cardiac Catheterization/Intervention Report Patient Name: Shoshana Russo Procedure Date: 06/04/2023 A #: [id number] Primary Physician: Azul Rowley I Case #: [id number] File Name: [id number] Catheterization Order Number: [id number] [facility] FinalReport [place], [place] Patient Name: Shoshana Russo ID#:[id number] :1975 Procedure Date: June 04, 2023 Case [...] patientwas designated as ASA Class IV. The [facility] clinical frailty scale is 3: Managing Well. Diagnostic Tests: Electrocardiography: EKG was assessed by ECG. EKG was Abnormal. EKG showed STDeviation >= 0.5 mm. Medications Prior to Procedure: Angiotensin Converting Enzyme Inhibitor, Aspirin, Beta Blockerand Statin. Indications for Diagnostic Cath: The priority of the diagnostic procedure was Emergent. Theindication for the slab lifting supervisor visit is ACS less than or equal [...] 4 guiding catheter and a 3.5 Fr [place] 20 Mhz using Manual pullback. Imaging was [...] 4 guiding catheter and a 3.5 Fr [place] 20 Mhz usingManual pullback. Imaging was successful. [...] The priority for the procedure was Emergent.[facility] the procedure was STEMI-Rescue (afterUnsuccessful [...] A premounted 3.00 x 18 mm [place] (MARIALUISA) was deployedwith a maximum inflation pressure [...] atmospheres. A premounted 2.75 x 38 mm [place] (MARIALUISA) was deployedwith a maximum inflation pressure [...] dose administered prior to arrival in the slab lifting supervisor. Recommended anti-platelet/anti-thrombotic regimen: Start aspirin 81 mg daily now and continue for indefinitely. Start clopidogrel 75 mg daily now and continue for 12 months thenstop. These recommendations are made at the time of the intervention.Patient and provider preferences or a changing clinical situation mayrequire modification of this regimen. Consult [facility] Interventional Cardiologyfor questions. The 1 year bleeding [...] (Bezet) 413 ms MUSE SYSTEM Calculated P [place] 50 degrees MUSE SYSTEM Calculated R [place] 37 degrees MUSE SYSTEM Calculated T [place] 52 degrees MUSE SYSTEM INTERPRETATION Normal sinus rhythm Inferior infarct (cited on or before 12-OCT-2018) Abnormal ECG When compared with ECG of 12-OCT-2018 11:06, No significant change was found Confirmed by MD Jose Cruz, Jr ([id number]) on 06/05/2023 1:16:03 PM MUSE SYSTEM 06/04/2023 5:18 PM EDT 06/05/2023 1:16 PM EDT Azul Mccoy MD ECG ORDERABLES MUSE SYSTEM documented in this encounter Visit Diagnoses Not on filedocumented in this encounter Admitting Diagnoses Diagnosis STEMI (ST elevation myocardial infarction) Acute myocardial infarction, unspecified site, episode of care unspecified documented in this encounter Administered Medications Inactive Administered Medications - up to 3 most recent administrations Medication Order MAR Action Action Date Dose Rate Site aspirin EC tablet 81 mg 81 mg, [...] insulin orders before administering the next dose. fentaNYL (pf) (50 mcg/mL) multi-dose injection PRN, Starting on Mon06/04/23 at 1618, Until Mon06/04/23 at 1706, Intra-Operative (Intra-Procedure), Routine Given 06/04/2023 4:18 PM EDT 25 mcg Left Arm gabapentin (Neurontin) capsule 200 mg 200 mg, [...] (porcine) (1,000 units/mL) injection PRN, Starting on Mon06/04/23 at 1621, Until Mon06/04/23 at 1706, Intra-Operative (Intra-Procedure), Routine Given 06/04/2023 4:41 PM EDT 3,000 Units Left Arm Given 06/04/2023 4:30 PM EDT 2,000 Units L eft Arm Given 06/04/2023 4:21 PM EDT 5,000 Units L eft Arm heparin (porcine) (5,000 units/1 mL) subcutaneous injection [...] Given 06/05/2023 12:31 AM EDT 6 mg midazolam (pf) (Versed) (1 mg/mL) multi-dose injection PRN, Starting on 06/04/23 at 1618, Until Mon06/04/23 at 1706, Intra-Operative (Intra-Procedure), Routine Given 06/04/2023 4:18 PM EDT 1 mg Left Arm nitroGLYcerin 100 mcg/mL intracoronary dilution PRN, Starting on Mon06/04/23 at 1620, Until Mon06/04/23 at 1706, Intra-Operative (Intra-Procedure), Routine Given 06/04/2023 4:35 PM EDT 150 mcg Given 06/04/2023 4:20 PM EDT 150 mcg pantoprazole EC (Protonix) tablet 40 mg 40 mg, Oral, DAILY, First dose on Mon06/04/23 at 1930, Until Discontinued Given 06/07/2023 8:22 AM EDT 40 mg Given 06/06/2023 8:16 AM EDT 40 mg Given 06/05/2023 8:40 AM EDT 40 mg polyethylene glycoL (Miralax) packet 17 g 17 [...] Given 06/06/2023 8:16 AM EDT 10 mLs verapamiL (Isoptin) (2.5 mg/mL) injection PRN, Starting on Mon06/04/23 at 1620, Until Mon06/04/23 at 1706, Administer over 2 Minutes, Intra-Operative (Intra-Procedure) Given 06/04/2023 4:20 PM EDT 2 .5 mg documented in this encounter Active and [...] other ordered pain medications are indicated., Routine 0615 (Given - Provider: Janice Manzano RN - Comment: headache) acetaminophen (Tylenol) tablet 650 mg (COMPLETED) 650 mg, Oral, ONCE, 1 dose, On Mon06/06/23 at 2300, Maximum dose of acetaminophen is 4,000 mg from all sources in 24 hours. When ordered for pain, acetaminophen should be given even when other ordered pain medications are indicated., Routine 2218 (Given - Provider: Jacqui Feliciano RN) aspirin EC tablet 81 mg 81 mg, Oral, DAILY, First dose on Mon06/05/23 at 0900, Until Discontinued, Recovery (Recovery-Hospital Unit), Routine 0900 (Given - Provider: Susan Hernandez RN) 0816 (Given - Provider: Susan Hernandez RN) 0822 (Given - Provider: Alice Villalta, DELL) atorvastatin (Lipitor) tablet 80 mg 80 mg, [...] Feliciano RN) 0822 (Given - Provider: Alice Villalta RN) clopidogreL (Plavix) tablet 75 mg 75 mg, [...] Discontinued, Routine 0310 (Given - Provider: Janice Manzano, RN)2014 (Given - Provider: Janice Manzano RN) 2009 (Given - Provider: Jacqui Feliciano, DELL) heparin (porcine) (5,000 units/1 mL) subcutaneous injection 5,000 Units 5,000 Units, Subcutaneous, EVERY 8 HOURS SCHEDULED, First dose on Mon06/04/23 at 2200, Until Discontinued, Routine 0628 (Given - Provider: Janice Manzano RN)1535 (Given - Provider: Susan Hernandez, DELL)2303 (Given - Provider: Janice Manzano RN - Comment: space 8hr from last dose) 0604 (Given - Provider: Janice Manzano RN)1308 (Given - Provider: Susan Hernandez RN)2009 (Given - Provider: Jacqui Feliciano, RN - Comment: formerly [facility]) 0540 (Given - Provider: Jacqui Feliciano, DELL) insulin glargine-ygfn (Semglee) (100 unit/mL) subcutaneous [...] Villalta, DELL)1200 (Not Given - Provider: Alice Villalta, DELL - Reason: See comment - Comment: didnt eat from menu, couldnt count carbs) insulin lispro (HumaLOG;Admelog) (100 unit/mL) subcutaneous injection vial 1-6 Units(Linked Group 1) 1-6 Units, Subcutaneous, EVERY 4 HOURS SCHEDULED, First dose on 06/04/23 at 2000, Until Discontinued, CORRECTION BOLUS [1-6 [...] Susan Hernandez RN)1220 (Given - Provider: Susan Hernandez RN)1338 (Given - Provider: Susan Hernandez RN)1535 (Given - Provider: Susan Hernandez, DELL)1946 (Given - Provider: Janice Manzano RN) 0000 (Not Given - Provider: Janice Manzano RN - Reason: Order parameters not met)0310 (Given - Provider: Janice Manzano RN)0817 (Given - Provider: Susan Hernandez, DELL)1259 (Given - Provider: Susan Hernandez RN)1729 (Given - Provider: Susan Hernandez RN)2011 (Given - Provider: Jacqui Feliciano RN) 0000 (Not Given - Provider: Jacqui Feliciano RN - Reason: Order parameters not met)0400 (Not Given - Provider: Jacqui Feliciano RN - Reason: Order parameters not met)0833 (Given - Provider: Alice Villalta RN)1138 (Given - Provider: Alice Villalta RN) melatonin tablet 6 mg 6 mg, Oral, NIGHTLY, First dose on Mon06/05/23 at 0030, Until Discontinued, Routine 0031 (Given - Provider: Meena Newberry RN)2015 (Given - Provider: Janice Manzano, DELL) 2009 (Given - Provider: Jacqui Feliciano RN) pantoprazole EC (Protonix) tablet 40 mg 40 mg, Oral, DAILY, First dose on Mon06/04/23 at 1930, Until Discontinued 0840 (Given - Provider: Susan Hernandez RN) 0816 (Given - Provider: Susan Hernandez RN) 0822 (Given - Provider: Alice Villalta RN) senna-docusate (Pericolace) 8.6-50 mg per tablet 2 tablet 2 tablet, Oral, 2 TIMES DAILY, First dose on Mon06/05/23 at 2100, Until Discontinued, Hold for loose stool. , Routine 2100 (Given - Provider: Janice Manzano RN) 0900 (Given - Provider: Susan Hernandez RN)2100 (Not Given - Provider: Jacqui Feliciano RN - Reason: Patient/family refused) 0900 (Not Given - Provider: Alice Villalta RN - Reason: Patient/family refused) sodium chloride 0.9 % (flush) (BD PosiFlush Normal Saline 0.9) flush 5 mL 5 mL, Intravenous, 2 TIMES DAILY, First dose on Mon06/04/23 at 2100, Until Discontinued, Routine 0841 (Given - Provider: Susan Hernandez RN)2014 (Given - Provider: Janice Manzano RN) 0816 (Given - Provider: Susan Hernandez, DELL)2009 (Given - Provider: Jacqui Feliciano RN) 0824 (Given - Provider: Alice Villalta RN) PRN Medication Order 06/05/2023 06/06/2023 06/07/2023 bisacodyL [...] any scheduled bowel medications ordered. , Routine 309 (Given - Provider: Janice Manzano, RN) lidocaine (Xylocaine) 1% (10 mg/mL) injection 3 mg 3 mg (0.3 mL), Subcutaneous, ONCE PRN, 1 dose, Starting on Mon06/04/23 at 1837, Until Mon06/07/23 at 1528, for discomfort with PIV insertion, Routine magnesium citrate oral liquid 296 mL(Linked Group 2) 296 mL, Oral, ONCE PRN, 1 dose, Starting on 06/05/23 at 1929, Until Mon06/07/23 at 1528, Constipation, Give if no BM 2 hr after previous interventions. If 2 hr after mag citrate there is still no BM, see order for tap water enema, if placed. Give concomitantly with any scheduled bowel medications ordered., Routine nitroGLYcerin (Nitrostat) disintegrating tablet 0.4 mg 0.4 mg, Sublingual, EVERY 5 MIN PRN, Starting on 06/04/23 at 1837, Until Mon06/07/23 at 1528, Chest [...] Janice Manzano, RN)0816 (Given - Provider: Susan Hernandez RN) sodium chloride 0.9 % (flush) (BD PosiFlush Normal Saline 0.9) flush 5-20 mL 5-20 mL, Intravenous, EVERY 1 MIN PRN, Starting on 06/04/23 at 1837, Until Mon06/07/23 at 1528, flush, [...] 10 mg, Rectal, DAILY PRN, Starting on 06/05/23 at 1929, Until Mon06/07/23 at 1528, Constipation, [...] Routine documented in this encounter Care Teams Dough Brake Machine Operator Relationship 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
--- OUTSIDE RECORDS SUMMARY | 2024-01-04 13:17 | XMS_ITS | Encounter Summary ---
Author Organization [facility] Address [facility] [address] Care Team Providers Care Double End Sewer Name Role Phone Bandar Hahn MD Primary Care Provider [phone] Encounter Details Date Type Department Care Team (Late st Contact Info) Description 07/13/2023 [place] [phone] Olga Chavarria PA [facility] [place] [address] Social History Tobacco Use Types Packs/Day Years Used Date Smoking Tobacco: Former Cigarettes 1 10 Smokeless Tobacco: Never Alcohol Use Standard Drinks/Week Comments Yes 7 (1 standard drink = 0.6 oz pur e alcohol) [facility] Utilities Answer Date Recorded In the past 12 months has [employer], gas, oil, or water [employer] threatened to shut off services in your [...] encounter Miscellaneous Notes * Telephone Encounter - Olga Chavarria PA - 07/13/2023 1:57 PM EDT Attempted to call patient back to discuss upcoming cardiac cath but no answer, LVM to return call. GLENIS Ariza documented in this encounter Plan of Treatment Upcoming Encounters Date Type Department Care Team (Late st Contact Info) Description 01/31/2024 9:30 AM EST Office Visit Neph[place] [address] Donavon Frey MD [facility] [place] [address] 02/06/2024 1:00 PM EST Office Visit Cardiology at [address] [address] Adrian Tello MD [facility] [place] [address] 04/25/2024 10:30 AM EST Office Visit Sleep Center at [address] [place] [phone] Maria De Jesus Lange APRN [facility] [place] [address] documented as of this encounter Visit Diagnoses Not on filedocumented in this encounter Care Teams Double End Sewer Relationship 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
--- OUTSIDE RECORDS SUMMARY | 2024-01-04 13:17 | XMS_ITS | Encounter Summary ---
Author Organization [facility] Address [facility] [place] [address] Care Team Providers Care Veterans Contact Representative Name Role Phone Bandar Hahn MD Primary Care Provider [phone] Encounter Details Date Type Department Care Team (Late st Contact Info) Description 06/14/2023 [place] [phone] Olga Chavarria PA [facility] [place] [address] Social History Tobacco Use Types Packs/Day Years Used Date Smoking Tobacco: Former Cigarettes 1 10 Smokeless Tobacco: Never Alcohol Use Standard Drinks/Week Comments Yes 7 (1 standard drink = 0.6 oz pur e alcohol) [facility] Utilities Answer Date Recorded In the past 12 months has [employer], gas, oil, or water [employer] threatened to shut off services in your home? No 06/05/2023 Hunger Vital Sign Answer Date Recorded Within the past 12 months, y ou worried that your food would run out before you got the money to buy more. Never true 06/05/19 Within the past 12 months, t he [...] in a alf (including now)? No 06/05/2023 IPV Inpatient Questions [...] Telephone Encounter - Olga Chavarria PA - 06/14/2023 11:28 AM EDT Called patient to discuss potential upcoming cardiac catheterization for planned intervention of LCX. No answer, LVM. Asked patient to call back to [phone] and to ask to page Olga Chavarria. GLENIS Espinoza documented in this encounter Plan of Treatment Upcoming Encounters Date Type Department Care Team (Late st Contact Info) Description 01/31/2024 9:30 AM EST Office Visit Neph[place] [address] Donavon Frey MD [facility] [place] [address] 02/06/2024 1:00 PM EST Office Visit Cardiology at [address] [address] Adrian Tello MD [facility] [place] [address] 04/25/2024 10:30 AM EST Office Visit Sleep Center at [facility] [address] [place] [address] Maria De Jesus Lange APRN [facility] [address] documented as of this encounter Visit Diagnoses Not on filedocumented in this encounter Care Teams Veterans Contact Representative Relationship 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
--- OUTSIDE RECORDS SUMMARY | 2024-01-04 13:17 | XMS_ITS | Encounter Summary ---
Author Organization [facility] [place] [address] Care Team Providers Care Park Activities Coordinator Name Role Phone Bandar Hahn MD Primary Care Provider [phone] Reason for Visit * Auth/Cert (Routine) Specialty Diagnoses / Procedures Referred By Martha t Referred To Contact Diagnoses ASCVD (arteriosclerotic cardiovascular disease) ASCVD (arteriosclerotic cardiovascular disease) [I25.10] Procedures PRG CATH PLMT LEFT HEART CATH & ARTS W/INJ & ANGIO IMG S&I CARDIAC CATHETERIZATION CORONARY ANGIOGRAPHY; W [facility],POSSIBLE PCI (WRVU 5.6) Azul Rolwey MD [facility] [place] [address] [facility] Referral ID Status Reason Start Date Expiration Date Visits Re quested Visits Authorized [id number] 1 1 Encounter Details Date Type Department Care Team (Latest Contact Info) Description 08/04/2023 7:28 AM EDT - 08/04/2023 4:50 PM EDT Hospital Encounter [place] [phone] Azul Rowley MD [facility] [place] [address] ASCVD (arteriosclerotic cardiovascular disease) Discharge Disposition: Home Social History Tobacco Use Types Packs/Day Years Used Date Smoking Tobacco: Former Cigarettes 1 10 Smokeless Tobacco: Never Tobacco Cessation:Counseling Given: Not Answered Alcohol Use Standard Drinks/Week Comments Not Currently 7 (1 standard drink = 0.6 oz pur e alcohol) rarely [facility] Utilities Answer Date Recorded In the [...] in a penitentiary (including now)? No 06/05/2023 DH IPV Inpatient [...] Sign Reading Time Taken Comments Blood Pressure 153/92 08/04/2023 12:53 PM EDT Pulse 80 08/04/2023 12:45 PM EDT Temperature 36.6 ??C (97.9 ??F) 08/04/2023 1 2:53 PM EDT Respiratory Rate 18 08/04/2023 12:5 3 PM EDT Oxygen Saturation 97% 08/04/2023 12: 53 PM EDT Inhaled Oxygen Concentration - - [...] Hayden Russo Patient Age: 47 y.o. Language: Liberian Race: White Ethnicity: Not nor Admit date: [...] Inpatient Provider Contact Information: GLENIS Puentes Pager [phone] Discharge Diagnoses (Hospital Problems) and Secondary Diagnoses (Chronic Problems): CAD s/p PCI to RCA ostium Problem list: Patient Active Problem List Diagnosis Code Acute ST elevation myocardial infarction (STEMI) of inferior wall I21.19 Diabetes mellitus E11.9 Hypertension I10 STEMI (ST elevation myocardial infarction) I21.3 CAD (coronary artery disease) I25.10 Operations/Major Procedures: Operations: Procedure(s): CARDIAC CATHETERIZATION CORONARY ANGIOGRAPHY; W [facility],POSSIBLE PCI History of Presentation: Hayden Russo is a 47 y.o. male who presents for planned PCI of the LCX of previously placed stent with ISR. He has a PMH of ASCVD with recent PCI to the RCA in the setting of STEMI and prior stent to LCX with prior WY. Referred for cardiac catheterization for evaluation of [...] Procedure Note: Patient Name: Hayden Russo : [id number] MR#: [id number] Case Date: 08/04/2023 Order Processing Specialist: Surgeons and Role: * Azul Rowley MD - Primary * Olga Chavarria PA - Physician Marine Cargo Specialist Preoperative diagnosis: ASCVD (arteriosclerotic cardiovascular disease) [I25.10] Postoperative diagnosis: * ASCVD * Procedure(s) performed: [facility] CORS IVUS Stent insertion coronary Balloon angioplasty Access: 6 Fr RRA provided good access for the [facility] and coronary angiogram A time-out was conducted [...] him to prasugrel andloaded him in the mushroom laborer with this. We continued to balloon the [...] - During 8am-5pm Monday through Monday call [phone] to speak with a nurse in the cardiology clinic - All other times call [phone] and ask to speak to the orthopedic nurse practitioner paper conservator. MEDICATIONS Your Medications New Medications Dose Details [...] not stop this without talking to your rotogravure press operator. You should be taking a statin [...] You recently underwent a cardiac catheterization at [facility]. Stents were placed in RCA. As a [...] Puentes Interventional Cardiology Date: 08/04/23 Time: 1300 [facility] Pager: [phone] documented in this encounter Discharge Instructions * Patient Instructions* Olga Chavarria PA - 08/04/2023 10:57 AM EDT Images from the original note were not included. Details of today's procedure You just underwent a cardiac catheterization at [facility]. We placed stent(s) in your coronary arteries [...] it is notimproving, please call us at [phone]. Expect some mild tenderness over the area [...] in 2-4 weeks. Follow up with your rotogravure press operator in 2-4 weeks after procedure. If you have further questions about diet, exercise, and other details about your heart disease, a terrific resource is [email or web address]. Search under topics and find coronary artery disease. Also,check out the Health Living section. If there are non emergent questions, please contact [phone] #[phone]. If there are emergency questions at night or over the weekend, call the orthopedic nurse practitioner paper conservator at [phone]. Radial Access for Heart Cath Problems to [...] * PCI (Percutaneous Coronary Intervention): General Info (Liberian) * PCI (Percutaneous Coronary Intervention): Post-op (Liberian) documented in this encounter Medications at Time [...] times daily. 60 tablet 3 06/07/2023 09/27/2023 JUAN COSTA U-100 INSULIN 100 unit/mL (3 [...] Mccullough RN - 08/04/2023 4:48 PM EDT [facility] Short Stay Unit Discharge Note All relevant [...] Procedure Note: Patient Name: Hayden Russo : [id number] MR#: [id number] Case Date: 08/04/2023 Order Processing Specialist: Surgeons and Role: * Azul Rowley MD - Primary * Olga Chavarria PA - Physician Marine Cargo Specialist Preoperative diagnosis: ASCVD (arteriosclerotic cardiovascular disease) [I25.10] Postoperative diagnosis: * ASCVD * Procedure(s) performed: [facility] CORS IVUS Stent insertion coronary Balloon angioplasty Access: 6 Fr RRA provided good access for the [facility] and coronary angiogram A time-out was conducted [...] him to prasugrel andloaded him in the mushroom laborer with this. We continued to balloon the [...] GLENIS Puentes Interventional Cardiology 08/04/23 10:54 AM [facility] Pager: [phone] * Olga Chavarria PA - 08/04/2023 8:19 [...] and prior stent to LCX with prior WY. Referred for cardiac catheterization for evaluation of [...] seen Recent CBC Recent Labs 06/07/23 0540 06/06/23 0357 06/05/23 0304 WBC 8.6 10.6* 10.7* HGB 9.7* 10.2* 10.6* HCT 33.7* 34.1* 36.4* PLATELET 237 254 262 Recent BMP Recent Labs 06/07/23 0540 06/06/23 0357 06/05/23 [...] Chavarria PA-C Interventional Cardiology/Structural Heart Team Pager [phone] documented in this encounter Miscellaneous Notes * [...] home. A referral for cardiac rehab at [facility] was ordered in May. He tells me he was supposed to start cardiac rehab this week, but due to a recent increase in symptoms/fatigue. He has postponed his start date. Will forward an update to [facility] after discharge. He plans to reschedule an intake appointment in thenear future. * Brief Op Note - Olga Chavarria PA - 08/04/2023 10:47 AM EDT Preliminary Cardiac Catheterization Procedure Note: Patient Name: Hayden Russo : [id number] MR#: [id number] Case Date: 08/04/2023 Order Processing Specialist: Surgeons and Role: * Azul Rowley MD - Primary * Olga Chavarria PA - Physician Marine Cargo Specialist Preoperative diagnosis: ASCVD (arteriosclerotic cardiovascular disease) [I25.10] Postoperative diagnosis: * ASCVD * Procedure(s) performed: [facility] CORS IVUS Stent insertion coronary Balloon angioplasty Access: 6 Fr RRA provided good access for the [facility] and coronary angiogram A time-out was conducted [...] him to prasugrel andloaded him in the mushroom laborer with this. We continued to balloon the [...] AM EST Office Visit [place] [address] Donavon Frey MD [facility] [place] [address] 02/06/2024 1:00 PM EST Office Visit Cardiology at [facility] [address] [facility] [place] [address] Adrian Tello MD [facility] [place] [address] 04/25/2024 10:30 AM EST Office Visit Sleep Center at [facility] [address] [place] [address] Maria De Jesus Lange APRN [facility] [place] [address] documented as of this encounter Procedures Procedure Name Priority Date/Time Associated Diagnosis Comments EKG 12-LEAD Routine 08/04/2023 10:51 AM EDT ASCVD (arteriosclerotic cardiovascular disease) CARDIAC CATHETERIZATION Routine 08/04/2023 10:32 AM EDT ASCVD (arteriosclerotic cardiovascular disease) Cath [facility] Left Heart Cath & Arts W/Inj & Angio Img S&I ([id number]) 08/04/2023 8:25 AM EDT ASCVD (arteriosclerotic cardiovascular [...] (Bezet) 424 ms MUSE SYSTEM Calculated P [place] 49 degrees MUSE SYSTEM Calculated R [place] 11 degrees MUSE SYSTEM Calculated T [place] -18 degrees MUSE SYSTEM INTERPRETATION Normal sinus rhythm Minimal voltage criteria for LVH, may be normal variant ( R in aVL ) Inferior infarct (cited on or before 12-OCT-2018) Cannot rule out Anterior infarct (cited on or before 04-AUG-2023) Abnormal ECG When compared with ECG of 04-AUG-2023 08:11, No significant change was found Confirmed by Jonathan Baig ([id number]) on 08/04/2023 2:21:56 PM MUSE SYSTEM 08/04/2023 10:5 1 AM EDT 08/04/2023 2:21 PM EDT Azul Mccoy MD ECG ORDERABLES MUSE SYSTEM * CARDIAC CATHETERIZATION (08/04/2023 10:32 AM EDT) Anatomical Region Laterality Modality Other Narrative 08/07/2023 9:27 AM EDT ?[facility] ? Cardiac Catheterization/Intervention Report ? Patient Name: Brill, Hayden M. ? Procedure Date: 08/04/2023 ? A #: [id number] ? Primary Physician: Azul Rowley I ? Case #: [id number] ? File Name: [id number] ? Catheterization Order Number: [id number] ? [facility] ? Final Report [place], [place] ? Patient Name: ? Hayden M. Brill ? ID#: ?[id number] ? : ?1975 ? Procedure Date: ? August 04, 2023 ?Case #: ? [id number] ? Room: ? 5 ? Case Physician: [...] procedure was Elective. The indication for ?the mushroom laborer visit is worsening angina and stable known [...] Fr JR 4 guide ? utilizing a [place] CB 15 MM balloon with a maximum [...] Fr JR 4 guide ? utilizing a [place]us[place] CB 15 MM balloon with a maximum [...] may require ?modification of this regimen. Consult [facility] Interventional Cardiology for ?questions. ?The 1 year [...] Procedure Note Azul Rowley MD - 09/13/2023 [facility] Cardiac Catheterization/Intervention Report Patient Name: Hayden Russo Angela Procedure Date: 08/04/2023 A #: [id number] Primary Physician: Azul Rowley I Case #: [id number] File Name: [id number] Catheterization Order Number: [id number] [facility] FinalReport [place], [place] Patient Name: Hayden Russo ID#:[id number] :1975 Procedure Date: August 04, 2023 Case [...] designated as ASA Class III. The [facility] clinical frailtyscale is 3: Managing Well. Diagnostic Tests: Prior Coronary Angiography: LV ejection fraction within 6 months is 51%. Electrocardiography: EKG was assessed by ECG. EKG was Abnormal. EKG showed STDeviation >= 0.5 mm. Medications Prior to Procedure: Aspirin, Beta Yajaira and Statin. Indications for Diagnostic Cath: The priority of the diagnostic procedure was Elective. Theindication for the mushroom laborer visit is worsening angina and stable known [...] 6 Fr JR 4 guide utilizing a [place] CB 15 MM balloon with a maximumsize [...] 6 Fr JR 4 guide utilizing a [place] CB 15 MM balloon with a maximumsize [...] situation mayrequire modification of this regimen. Consult [facility] Interventional Cardiologyfor questions. The 1 year bleeding [...] * POCT Glucose (08/04/2023 8:13 AM EDT) Glucose, POC 186 65 - 199 mg/dL [facility] Comment: Supplemental ranges: <140 mg/dL before meals <180 mg/dL all other times of the day Blood 08/04/2023 8:13 AM EDT 08/04/2023 8:13 AM EDT Azul Mccoy MD POINT OF CARE TEST ORDERABLES [facility] [place] [address] * EKG 12 Lead (08/04/2023 8:11 AM EDT) Ventricular rate 74 BPM MUSE SYSTEM Atrial Rate 74 BPM MUSE SYSTEM P-R Interval 182 ms MUSE SYSTEM QRS Duration 102 ms MUSE SYSTEM Q-T Interval 372 ms MUSE SYSTEM QTC Calculated (Bezet) 412 ms MUSE SYSTEM Calculated P [place] 43 degrees MUSE SYSTEM Calculated R [place] 6 degrees MUSE SYSTEM Calculated T [place] -11 degrees MUSE SYSTEM INTERPRETATION Normal sinus [...] fellows interpretation Confirmed by fellow Antoni Gonzalez ([id number]) on 08/04/2023 8:51:23 AM Confirmed by Jonathan Baig ([id number]) on 08/04/2023 1:42:12 PM MUSE SYSTEM 08/04/2023 8:11 AM EDT 08/04/2023 1:42 PM EDT Azul Mccoy MD ECG ORDERABLES MUSE SYSTEM * Scan, Peripheral Blood (08/04/2023 7:47 AM EDT) [facility] Plat estimate Normal [facility] RBC Morphology Abnormal [facility] Microcyte 1-5 /HPF [facility] Ovalocytes 1-5 /HPF [facility] Blood 08/04/2023 7:47 AM EDT 08/04/2023 7:51 AM EDT Narrative Resulting Agency Comment Spec In Lab Olga GALVIN HEMATOLOGY ORDERABLE S [facility] [place] [address] * (ABNORMAL) Differential, Automated (08/04/2023 7:47 AM EDT) [facility] Neutrophil % 71.7 % [facility] Neutrophil Absolute 7.46(H) 1.70 - 6.10 x10(3)/[facility] Lymph % 16.8 % [facility] Lymphocytes Abs 1.8 0.9 - 3.2 x10(3)/[facility] Monocyte % 8.3 % [facility] Monocyte Abs 0.9 0.3 - 0.9 x10(3)/[facility] Eos % 2.0 % [facility] Eosinophils Abs 0.2 0.0 - 0.4 x10(3)/[facility] Basophil % 0.9 % [facility] Baso Absolute 0.1 0.0 - 0.1 x10(3)/[facility] Immature Gran % 0.30 % [facility] Comment: Immature granulocytes(IG's)percentage and absolute count will include metamyelocytes, myelocytes, and promyelocytes. Blood smears from CBCs yielding IG's will be scanned manually for concordance. If this scan disagrees with the automated IG or if promyelocytes are noted, a manual differential will be performed. Immature Gran Absolute 0.03 0.00 - 0.04 x10(3)/[facility] Blood 08/04/2023 7:47 AM EDT 08/04/2023 7:51 AM EDT Narrative Resulting Agency Comment Spec In Lab Olga GALVIN HEMATOLOGY ORDERABLE S [facility] [place] [address] * (ABNORMAL) Hemogram (08/04/2023 7:47 AM EDT) White Blood Cell 10.4(H) 4.0 - 9.5 x10(3)/[facility] Red Blood Cell 5.90(H) 4.58 - 5.54 x10(6)/[facility] Hemoglobin 12.0(L) 13.7 - 16.5 g/dL [facility] Hematocrit 41.3 40.5 - 48.5 % [facility] Mean Cell Volume 70.0(L) 82.9 - 93.1 fL [facility] Mean Cell Hemoglobin 20.3(L) 27.5 - 32.1 pg [facility] Mean Cell Hemoglobin Concentration 29.1(L) 32.0 - 35.7 g/dL [facility] Platelet 273 145 - 357 x10(3)/mc L [facility] RDW Standard Deviation 45.9(H) 36.0 - 45.0 [facility] RDW coefficient of variation 19.5(H) 11.4 - 13.8 % [facility] Mean Platelet Volume 11.4 7.6 - 12.9 [facility] NRBC% auto 0.0 % [facility] NRBC Absolute 0.000 0.000 - 0.000 x10(3)/mc L [facility] Blood 08/04/2023 7:47 AM EDT 08/04/2023 7:51 AM EDT Narrative Resulting Agency Comment Spec In Lab Olga GALVIN HEMATOLOGY ORDERABLE S [facility] [place] [address] * (ABNORMAL) BMP w/fasting Glucose (08/04/2023 7:47 AM EDT) Glucose Fasting 211(H) 65 - 99 mg/dL [facility] Comment: ?Fasting* Glucose Interpretive Criteria [...] of Diabetes Mellitus, Position Statement from the [place] [employer]. ??Diabetes Care, Volume 33, Supplement 1, Feb 2009 Blood Urea Nitrogen 38(H) 10 - 20 mg/dL [facility] Creatinine 2.39(H) 0.80 - 1.50 mg/dL [facility] Sodium 137 135 - 145 mmol/L [facility] Potassium 4.6 3.5 - 5.0 mmol/L [facility] Comment: Please note: ??Patients with WBC >100,000 may have falsely elevated Potassium levels. ??For accurate Potassium quantification in these patients send serum separator tube (gold top) for subsequent determinations. ??Contact the Clinical Chemistry Laboratory if there are any questions. Chloride 103 98 - 107 mmol/L [facility] Carbon Dioxide 23 22 - 31 mmol/L [facility] Anion Gap 11 5 - 15 mmol/L [facility] Calcium 9.2 8.5 - 10.5 mg/dL [facility] Est Glomerular Filtration Rate 33(L) >=60 mL/min/1. 73 m?? [facility] Comment: This patient's estimated [...] Lab Azul Mccoy MD [place] [address] documented in this encounter Visit Diagnoses Diagnosis CAD (coronary artery disease)- Primary Coronary atherosclerosis of unspecified type of vessel, [place] tribe or graft ASCVD (arteriosclerotic cardiovascular disease) Unspecified cardiovascular disease ASCVD (arteriosclerotic cardiovascular disease) Unspecified cardiovascular disease documented in this encounter Admitting Diagnoses Diagnosis CAD (coronary artery disease) Coronary atherosclerosis of unspecified type of vessel, [place] tribe or graft documented in this encounter Administered Medications Inactive Administered Medications - up to 3 most recent administrations Medication Order MAR Action Action Date Dose Rate Site sodium chloride 0.9% infusion 100 mL/hr, Intravenous, CONTINUOUS, Starting on Mon08/04/23 at 1115, Until Mon08/04/23 at 1103, Recovery (Recovery-Hospital Unit) New Bag 08/04/2023 10:51 AM EDT 100 mL/hr 100 mL/hr sodium chloride 0.9% infusion 200 mL/hr, Intravenous, CONTINUOUS, Starting on Mon08/04/23 at 1130, Until Mon08/04/23 at 1529, Recovery (Recovery-Hospital Unit) Rate/Dose Change 08/04/2023 11:04 AM EDT 200 mL/hr 200 mL/hr documented in this encounter Active and Recently [...] 1104 (Rate/Dose Gonzalez ge - Provider: Echo Pion, RN)1504 (Stopped - Provider: Liliya Lowe, DELL) [...] MD) documented in this encounter Care Teams Park Activities Coordinator Relationship 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
--- OUTSIDE RECORDS SUMMARY | 2024-01-04 13:17 | XMS_ITS | Encounter Summary ---
Author Organization [facility] Address [facility] [place] [address] Care Team Providers Care Cvt Rn Name Role Phone Bandar Hahn MD Primary Care Provider [phone] Encounter Details Date Type Department Care Team (Late st Contact Info) Description 06/14/2023 [place] [address] Olga Chavarria PA [facility] [place] [address] ASCVD (arteriosclerotic cardiovascular disease) (Primary Dx) Social History Tobacco Use Types Packs/Day Years Used Date Smoking Tobacco: Former Cigarettes 1 10 Smokeless Tobacco: Never Alcohol Use Standard Drinks/Week Comments Yes 7 (1 standard drink = 0.6 oz pur e alcohol) [facility] Utilities Answer Date Recorded In the past 12 months has e [employer] gas, oil, or water [employer] threatened to shut off services in your [...] AM EST Office Visit [place] [address] Donavon Frey MD [facility] [place] [address] 02/06/2024 1:00 PM EST Office Visit Cardiology at [address] [address] Adrian Tello MD [facility] [address] 04/25/2024 10:30 AM EST Office Visit Sleep Center at [facility] [address] [place] [address] Maria De Jesus Lange APRN [facility] [address] documented as of this encounter Visit Diagnoses Diagnosis ASCVD (arteriosclerotic cardiovascular disease)- Primary Unspecified cardiovascular disease documented in this encounter Care Teams Cvt Rn Relationship 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
--- OUTSIDE RECORDS SUMMARY | 2024-01-04 13:18 | XMS_ITS | Encounter Summary ---
Author Organization [facility] [place] [address] Care Team Providers Care Track Laborer Name Role Phone Bandar Hahn MD Primary Care Provider [phone] Encounter Details Date Type Department Care Team (Late st Contact Info) Description 06/04/2023 External [place] [address] Social History Tobacco Use Types Packs/Day Years Used Date Smoking Tobacco: Former Cigarettes 1 10 Smokeless Tobacco: Never Alcohol Use Standard Drinks/Week Comments Yes 7 (1 standard drink = 0.6 oz pur e alcohol) [facility] Utilities Answer Date Recorded In the [...] place to sleep or slept in a retirement (including now)? No 06/05/2023 IPV Inpatient Questions [...] AM EST Office Visit [place] [address] Donavon Frey MD [facility] [place] [address] 02/06/2024 1:00 PM EST Office Visit Cardiology at [address] [address] Adrian Tello MD [facility] [place] [address] 04/25/2024 10:30 AM EST Office Visit Sleep Center at [facility] [address] [place] [phone] Maria De Jesus Lange APRN [facility] [place] [address] documented as of this encounter Procedures Procedure Name Priority Date/Time Associated Diagnosis Comments EKG 12-LEAD Routine 06/04/2023 2:10 PM EDT documented in this encounter Results * EKG 12 Lead (06/04/2023 2:10 PM EDT) Historical Provider ECG ORDERABLES documented in this encounter Visit Diagnoses Not on filedocumented in this encounter Care Teams Track Laborer Relationship 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
--- OUTSIDE RECORDS SUMMARY | 2024-01-04 13:18 | XMS_ITS | Encounter Summary ---
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 Name Role Phone Teddy Hernandez MD, [facility] Primary Care Provider [phone] Reason for Referral * Consultation (Routine) - Closed Specialty Diagnoses / Procedures Referred By Martha vasquez Referred To Contact Cardiac Rehabilitation Diagnoses ST elevation myocardial infarction (STEMI) of inferior wall Jose Enrique Mckeon MD [facility] [place] [address] Cardiac Rehab, [address] [address] Referral ID Status Reason Start Date Expiration Date V isits Requested Visits Authorized [id number] Closed Consult, Test & Treat 10/14/2018 04/12/2019 36 36 Reason for Visit * Auth/Cert Specialty Diagnoses / Procedures Referred By Martha vasquez Referred To Contact Diagnoses Acute ST elevation myocardial infarction (STEMI) of inferior wall STEMI Procedures CARDIAC CATHETERIZATION Referral ID Status Reason Start Date Expiration Date Visits Re quested Visits Authorized [id number] 1 1 Encounter Details Date Type Department Care Team (Late st Contact Info) Description 10/12/2018 8:11 AM EDT - 10/14/2018 12:48 PM EDT Hospital Encounter Cardiac [place] [address] Camron Patton II, MD [facility] [place] [address] Jose Enrique Mckeon MD [facility] [place] [address] ST elevation myocardial infarction (STEMI) of inferior wall; Acute ST elevation myocardial infarction (STEMI) of inferior wall Discharge Disposition: Home Social History Tobacco Use Types Packs/Day Years Used Date Smoking Tobacco: Former Cigarettes 1 10 Smokeless Tobacco: Never Alcohol Use Standard Drinks/Week Comments Yes 7 (1 standard drink = 0.6 oz pur e alcohol) Sex and Gender Information Value Date Recorded Sex Assigned at Not on file Gender Identity Not on file Sexual Orientation Not on file documented as of this encounter Last Filed Vital Signs Vital Sign Reading Time Taken Comments Blood Pressure 138/77 10/14/2018 12:03 PM EDT Pulse 74 10/14/2018 12:03 PM EDT Temperature 36.6 ??C (97.9 ??F) 10/14/2018 7:31 AM ED T Respiratory Rate 18 10/14/2018 7:31 AM EDT Oxygen Saturation 96% 10/14/2018 7:31 AM EDT Inhaled Oxygen Concentration - - Weight 99.8 kg (220 lb 0.3 oz) 10/14/2018 4:30 A M EDT Height 177.8 cm (5' 10) 10/12/2018 5:41 PM EDT Body Mass Index 31.57 10/12/2018 5:41 PM EDT documented in this encounter Discharge Summaries * Jose Enrique Mckeon MD - 10/13/2018 9:47 AM EDT Cardiology - Discharge Summary Patient Name: Hayden Russo Patient Age: 42 y.o. Birthdate: 1975 Admit date: 10/12/2018 Discharge date and time: 10/15/2018 Attending Physician: Tracy att. providers found Follow-up Recommendations for Providers: Inferior STEMI -Please continue aspirin/clopidogrel and followed DAPT score in 12 months -Please continue metoprolol/lisinopril and uptitrate as able -Please continue atorvastatin indefinitely Insulin-dependent diabetes mellitus -Patient's hemoglobin A1c was greater than 13 on this admission -We would recommend increasing his insulin regimen -Please have patient follow-up with local dietitian -Would have a low threshold to involve endocrinology in his care longitudinally. Microcytic anemia -Please follow-up iron studies here [place] [facility] [place]Please follow-up peripheral smear review and hemoglobin electrophoresis for concern for thalassemia Discharge Diagnoses (Hospital Problems) and Secondary Diagnoses (Chronic Problems): Active Hospital Problems Diagnosis ??? Acute ST elevation myocardial infarction (STEMI) of inferior wall Resolved Hospital Problems No resolved problems to display. Procedures/Cardiac Studies: cardiac catheterization, echocardiogram (see full report below) History of Presentation: Hayden Russo is a 42 y.o. male with a past medical history of insulin- dependent type 2 diabetes mellitus, hypertension, hyperlipidemia and morbid obesity with a remote history of tobacco abusewho presents in transfer from [facility] for an inferior STEMI. ?? Patient was in his usual state of health until yesterday at work when he began having bilateral armpain. Overnight he had progressive chest tightness and chest pain with nausea and shortness of breath. He had no associated diaphoresis. He came to the emergency department at 3:30 AM and was found to have ST elevations in the inferior leads. He was given lytics, loaded with aspirin, clopidogrel and started on a heparin drip. Shortly after became chest pain-free. On arrival to [facility], the patient was in no acute distress. In the catheterization lab the patient had multivessel disease including a 95% distal RCA and a 90% left circumflex lesion. These were treated with drug-eluting stents and FAUZIA-3 flow. ?? After the catheterization, the patient is chest pain-free without orthopnea. He has some residual soreness on his right wrist but has no numbness or tingling or other altered sensations. Hospital Course: Inferior ST elevation myocardial infarction involving the left circumflex and right coronary artery Patient was taken to the catheterization lab where he had drug-eluting stents placed to the right coronary artery and left circumflex artery. He tolerated the procedure well. Follow-up transthoracic echocardiogram revealed EF of 51%. He was initiated on goal-directed medical therapy thereafter and it was uptitrated as tolerated. Insulin-dependent diabetes mellitus, uncontrolled Patient had significantly elevated hemoglobin A1c greater than 13 on admission. He was on his glargine 50 units nightly as well as a resistant sliding scale and meal associated regimen. Ultimately, the patient would benefit from an increased glargine dose with meal associated insulin at home. We recommend close follow-up with his primary care provider and nutrition referral that would be closer to home for him. Microcytic anemia Patient notably had anemia but seemed out of proportion with the patient's age. It was microcytic in nature with an MCV less than 70. Iron studies, hemoglobin electrophoresis and peripheral smear ordered on the day of discharge. These were to be followed-up as an outpatient. Important Studies and Lab Data: Recent Labs 10/14/18 0722 10/13/18 0603 10/12/18 1432 WBC 8.8 8.8 11.5* 10.5* HGB 11.1* 11.1* 11.9* 11.7* PLATELET 205 205 232 214 Recent Labs 10/14/18 0722 10/13/18 0603 10/12/18 1432 NA 140 139 136 K 4.3 4.5 4.5 CL 103 101 101 CO2 26 27 23 BUN 18 15 17 CREATININE 0.97 1.07 0.98 GLUCOSE -- -- 340* Recent Labs 10/14/18 0722 10/13/18 0603 10/12/18 1432 CALCIUM 8.6 9.1 8.9 MAGNESIUM 0.81 0.84 0.77 PHOS -- -- 3.4 Recent Labs 10/12/18 2003 TROPONINT 1.97* Recent Labs 10/12/18 1432 AST 88* ALT 49 ALKPHOS 67 BILITOT 0.6 BILIDIR 0.1 Recent Labs 10/12/18 1432 INR 0.9 Lab Results Component Value Date CHLPL 138 10/13/2018 HDL 28 10/13/2018 CHOLHDL 4.9 10/13/2018 TRIG 269 10/13/2018 LDLDIRECT 72 10/13/2018 Recent Labs 10/13/18 0603 HA1C 13.9* Studies: TTE SUMMARY: ?? 1. Global left ventricular systolic function is mildly reduced. The quantitative left ventricular ejection fraction by biplane Rincon's method is 51%. The basal inferior, mid anterolateral, mid inferolateral, and apical lateral wall segments are hypokinetic (score 2). 2. Right ventricular global systolic function is probably normal. 3. Normal chamber and aortic dimensions 4. Normal valve structures. 5. There is no pericardial effusion. ? Findings : ?? Left Ventricle: The left ventricular chamber size is normal. Left ventricular wall thickness is normal. Global left ventricular systolic function is mildly reduced. The quantitative left ventricular ejection fraction by biplane Rincon's method is 51%. There are left ventricular segmental wall motion abnormalities present, as shown in the diagram below. The basal inferior, mid anterolateral, mid inferolateral, and apical lateral wall segments are hypokinetic (score 2). Overall wallmotion score index is 1.25 ?? Left Atrium: The left atrium is normal in size. ?? Right Ventricle: The right ventricle is normal in size. Right ventricular global systolic function is probably normal. No pulmonary hypertension is noted. ?? Right Atrium: The right atrium is normal in size. ?? Aortic Valve: The aortic valve is tricuspid. There is no evidence of aortic valve thickening. Systolic excursion of the aortic valve is normal. There is no evidence of aortic valve stenosis. There is no evidence of aortic regurgitation. ?? Mitral Valve: The mitral valve appears normal in structure and function. There is trace mitral regurgitation present. ?? Tricuspid Valve: The tricuspid valve is probably normal. There is trace tricuspid regurgitation present. ?? Pulmonic Valve: The pulmonic valve is probably normal. ?? Pericardium: There is no pericardial effusion. ?? Aorta: The aortic root is normal in size. The ascending aorta is normal in size. ?? Venous: The inferior vena cava is poorly visualized. Left Heart Catheterization Coronary Angiography: ?Dominance: Right ?Left Main ?The left main was normal, free of disease. ?Left Anterior Descending ?There was mild diffuse (<=25% stenosis) disease of the entire vessel ?segment of the left anterior descending artery (LAD). ??The mid ?segment of the LAD had a single discrete 45% stenosis. ??There also ?was a 60% single discrete stenosis of the distal segment of the LAD. ?Left Circumflex ?There was mild diffuse (<=25% stenosis) disease of the entire vessel ?segment of the left circumflex artery (LCX). ??The mid segment of the ?LCX had a single discrete 90% stenosis. ?There was a 60% single discrete stenosis of the ostial segment of ?the first obtuse marginal branch (OM1) of the LCX. ??The distal ?vessel was moderate in size. ?Right Coronary Artery ?There was mild diffuse (<=25% stenosis) disease of the entire vessel ?segment of the right coronary artery (RCA). ??The distal segment of ?the RCA had a single discrete 95% stenosis. ? Indication for Intervention: ?Coronary intervention was indicated for primary therapy for an acute ?myocardial infarction. The priority for the procedure was Emergent. The ?NCDR indication for the procedure was STEMI (after successful lytics). ?Thrombolytics were administered on 10/12/2018 at 4:34 AM. ? Intervention Summary: ?Left Circumflex Artery ?Mid 90% ?Stent insertion was performed on the 90% stenosis in the mid ?segment of the LCX. This was a de susy lesion. According to ?the ACC/AHA classification system, this lesion was a type B1 ?moderate risk lesion. Primary prevention of restenosis was the ?indication for stent insertion. This was the culprit lesion. A ?guidewire was placed across this lesion. Vessel flow pre ?intervention was FAUZIA 3. Lesion length was 20mm. The lesion ?involves a bifurcation with the OM1. This bifurcation lesion ?was treated with a single stent, side branch jailed and not ?treated technique. ?Stent insertion was accomplished through a 6 Fr. EBU 3.0 ?guide. ??The lesion was predilated with a 2.00mm APEX 12 MM ?balloon with a maximum inflation pressure of 12 atmospheres. ?A premounted 2.50 x 26 mm Resolute KAE (MARIALUISA) was deployed ?with a maximum inflation pressure of 12 atmospheres. ?Following stent deployment, the lesion was dilated using a ?2.50mm NC EMERGE 20 MM balloon with a maximum inflation ?pressure of 16 atmospheres. ?The final outcome was defined as successful. A coronary ?arteriolar vasodilator was administered as part of the ?intervention on this lesion. There was no residual stenosis ?following this intervention. The final FAUZIA flow was 3. ?Right Coronary Artery ?Distal 95% ?Stent insertion was performed on the 95% stenosis in the ?distal segment of the RCA. This was a de susy lesion. This ?lesion was designated a type B1 moderate risk lesion based on ?ACC/AHA classification system. Primary prevention of ?restenosis was the indication for stent insertion. This was ?the culprit lesion. A guidewire was placed across this lesion. ?Vessel flow pre intervention was FAUZIA 3. Lesion length was ?15mm. ?Stent insertion was accomplished through a 6 Fr. JR 4 guide. ?The lesion was predilated with a 2.00mm APEX 12 MM balloon ?with a maximum inflation pressure of 12 atmospheres. ??A ?premounted 2.25 x 22 mm Resolute KAE (MARIALUISA) was deployed with ?a maximum inflation pressure of 10 atmospheres. ??Following ?stent deployment, the lesion was dilated using a 2.50mm NC ?EUPHORA 20 MM balloon with a maximum inflation pressure of 15 ?atmospheres. ?The final outcome was defined as successful. There was no ?residual stenosis following this intervention. The final FAUZIA ?flow was 3. ? Pending Studies and Lab Data: Hemoglobin Electrophoresis Peripheral Smear Discharge Conditions/Prognosis: Stable, Improved Discharge to: Home Discharge Medications: Your Medications New Medications Dose Details aspirin 81 mg Chew Take 81 mg by mouth daily. 81 mg Quantity: 30 tablet Refills: 3 clopidogrel 75 mg Tab Commonly known as: PLAVIX Take 1 tablet by mouth daily. 75 mg Quantity: 90 tablet Refills: 3 lisinopril 10 mg Tab Commonly known as: PRINIVIL;ZESTRIL Take 1 tablet by mouth daily. 10 mg Quantity: 90 tablet Refills: 3 metoprolol succinate 100 mg Tablet sr Commonly known as: TOPROL-XL Take 1 tablet by mouth daily. 100 mg Quantity: 30 tablet Refills: 12 nitroGLYcerin 0.4 mg Subl Commonly known as: NITROSTAT Place 1 tablet under the tongue every 5 minutes as needed for Chest pain. 0.4 mg Quantity: 90 tablet Refills: 12 Continued medications with new dosing Dose Details atorvastatin 80 mg Tab Commonly known as: LIPITOR Take 1 tablet by mouth every evening. What changed: ?? medication strength ?? how much to take ?? when to take this 80 mg Quantity: 90 tablet Refills: 3 STOPPED Medications insulin glargine Soln VASOTEC 10 mg Tab Generic drug: enalapril Updated Allergies/ADRs: No Known Allergies Future Appointments and Orders Future Appointments and Orders Future Appointments Provider Department Dept Phone 11/20/2018 4:20 PM Karthikeyan Chu PA Cardiology at [facility] [place]rive at: [place] [phone] Future Orders Complete By Expires Referral to Cardiac Rehab [[id number] Custom] As directed Process Instructions: If no progress note charted, please enter Clinical details in comments. Scheduling Instructions: Questions: My question or request is: STEMI. Cardiac rehab at [facility] General Instructions None Patient Instructions Patient Instructions on Discharge to Home Why you were hospitalized: You had a heart attack, which was caused by a blockage in one of your heart arteries. This was fixed with a stent that was placed during a cardiac catheretization. Because you had this procedure, youshouldn't lift anything greater than 10 lbs for the next week and nothing greater than 20 lbs for 2 weeks. After that time you may go back to regular activity and work. Call your doctor if your Right wrist pain gets worse, or you develop swelling or redness in that area. Also, call your doctor if you develop sudden chest pain or shortness of breath, especially chestpain that does not go away with nitroglycerin. It is important that you take your aspirin 81mg daily forever and clopidogrel 75mg daily for at least 1 year. Do not miss any doses of these medications! New Medications: Aspirin: this is a platelet inhibitor that will help prevent clot build up in your arteries, as well as in the stent that was placed. Continue taking 81mg daily indefinitely. Clopidogrel (plavix): this is a second platelet inhibitor that will help prevent clot build up in the stent that was placed. It is very important that you take this medication every day at least forone year to help keep your stent open. Follow up with your doctor before stopping this medication. Atorvastatin (lipitor): this is a cholesterol-lowering medication that helps prevent build up of plaque in your arteries. Take this every evening. Metoprolol (toprol): this is a beta jacky, that helps protect your heart. Take this every day. Lisinopril: this is an CAR inhibitor that also helps protect your heart, as well as help control your blood pressure. Take this every day. Nitroglycerin: this is a medication that can be placed under your tongue as needed for chest pain. If you experience chest pain, especially that similar to what you had before you were admitted to the hospital, sit down and place one tab under your tongue (it may make you dizzy, so sitting down before taking this is safest). If your chest pain does not improve, call your doctor. When to call your doctor: - Chest pain, worsening shortness of breath, fatigue with usual exertion, or new rest/night time symptoms. - Weigh yourself daily and record; if you note an increase of more than 2-3 pounds in 2 days, or 5 pounds over a week, contact your health care provider. - If you become short of breath, cannot lie down to sleep, or have swelling in your legs/ankles or abdomen, contact your health care provider. - Call if you have reduced urination during the day or increased urination at night. - Call for signs of increased wound drainage, redness, swelling, or increased pain at the site of your cardiac cath. - Call if you develop a temp >100.5 If you have non-emergent questions between now and the time of your follow up appointments: During 8am-5pm Monday through Monday call [phone] to speak with a nurse in the cardiology clinic All other times call [phone] and ask to speak to the sld inclusion teacher montessori paraprofessional. Activity level: - No heavy lifting (more than five pounds) for 48 hours; no more than 10 pounds for one week. - You may return to work in 1 week. Use common sense. Don't exhaust yourself. - No hunting, skiing, jogging, snow shoveling, snowmobiling, lawn mowing, swimming, golf or tennis until after your return appointment with your family doctor. - Do not ride motorcycles, tractors or horses until cleared by your doctor. Diet: - Heart healthy: low salt, low fat, low concentrated sweets. Remember to avoid added salt, canned foods, processed foods (ie hot dogs, sausage, cold meats), and foods naturally high in salt, such as potato chips or pizza. Driving: - Per your routine after [address] if you feel dizzy, light headed, or are taking narcotic medications (ie/ Oxycodone, Morphine, Dilaudid, etc). Shower/Bath: - You may shower 24 hours after cardiac catheterization. - You may not sit in water for 5 days (tub bath, hot tub or pool). Wound Care: - Cath site dressing may be removed in 24 hours. Site may be washed with soap/water. A dressing does not need to be reapplied unless irritation occurs with underclothes. If irritation occurs, apply clean band-aid daily. Exercise: - Exercise 5-7 days per week as tolerated with gradual increase to 30 minutes per day. Smoking cessation: - If you are currently a smoker, you are strongly urged to stop smoking! Smoking increases the severity and incidence of heart disease, and is a risk factor for cancer and emphysema. Your health careprovider can provide specific measures to assist you, including nicotine supplements, anti-anxiety meds, and support groups in your community. Follow up Appointments: Future Appointments Date Time Provider Department Center 11/20/2018 4:20 PM Karthikeyan Chu PA [facility] CARD 4A [facility] PCP: Please call your PCP to make a formal appointment within 7 days of leaving the hospital Your Inpatient Doctor(s) at [facility]: Jose Enrique Mckeon MD - Attending physician Genaro Falk DO - Resident physician Paramjit Alcantara MD - Forest Aide physician Your Primary Care Provider: Bandar Hernandez MD (Inactive) [address] [facility] [address] For questions regarding issues relating to your hospitalization on the Hospital Medicine Service, please contact your inpatient physician through the [facility] Steel Construction Worker [phone]. Issues after hours and on weekends will be handled by the Hospitalist staff on-call. For questions regarding this document or issues relating to this hospitalization on the Medical Service, please contact your inpatient physician through the [facility] [employer] Construction Worker . Issues afterhours and on weekends will be handled by the Cleaner Assistant staff on-call. documented in this encounter Discharge Instructions * Patient Instructions* Genaro Falk, - 10/12/2018 11:20 AM EDT Patient Instructions on Discharge to Home Why you were hospitalized: You had a heart attack, which was caused by a blockage in one of your heart arteries. This was fixed with a stent that was placed during a cardiac catheretization. Because you had this procedure, youshouldn't lift anything greater than 10 lbs for the next week and nothing greater than 20 lbs for 2 weeks. After that time you may go back to regular activity and work. Call your doctor if your Right wrist pain gets worse, or you develop swelling or redness in that area. Also, call your doctor if you develop sudden chest pain or shortness of breath, especially chestpain that does not go away with nitroglycerin. It is important that you take your aspirin 81mg daily forever and clopidogrel 75mg daily for at least 1 year. Do not miss any doses of these medications! New Medications: Aspirin: this is a platelet inhibitor that will help prevent clot build up in your arteries, as well as in the stent that was placed. Continue taking 81mg daily indefinitely. Clopidogrel (plavix): this is a second platelet inhibitor that will help prevent clot build up in the stent that was placed. It is very important that you take this medication every day at least forone year to help keep your stent open. Follow up with your doctor before stopping this medication. Atorvastatin (lipitor): this is a cholesterol-lowering medication that helps prevent build up of plaque in your arteries. Take this every evening. Metoprolol (toprol): this is a beta jacky, that helps protect your heart. Take this every day. Lisinopril: this is an CAR inhibitor that also helps protect your heart, as well as help control your blood pressure. Take this every day. Nitroglycerin: this is a medication that can be placed under your tongue as needed for chest pain. If you experience chest pain, especially that similar to what you had before you were admitted to the hospital, sit down and place one tab under your tongue (it may make you dizzy, so sitting down before taking this is safest). If your chest pain does not improve, call your doctor. When to call your doctor: - Chest pain, worsening shortness of breath, fatigue with usual exertion, or new rest/night time symptoms. - Weigh yourself daily and record; if you note an increase of more than 2-3 pounds in 2 days, or 5 pounds over a week, contact your health care provider. - If you become short of breath, cannot lie down to sleep, or have swelling in your legs/ankles or abdomen, contact your health care provider. - Call if you have reduced urination during the day or increased urination at night. - Call for signs of increased wound drainage, redness, swelling, or increased pain at the site of your cardiac cath. - Call if you develop a temp >100.5 If you have non-emergent questions between now and the time of your follow up appointments: During 8am-5pm Monday through Monday call [phone] to speak with a nurse in the cardiology clinic All other times call [phone] and ask to speak to the sld inclusion teacher montessori paraprofessional. Activity level: - No heavy lifting (more than five pounds) for 48 hours; no more than 10 pounds for one week. - You may return to work in 1 week. Use common sense. Don't exhaust yourself. - No hunting, skiing, jogging, snow shoveling, snowmobiling, lawn mowing, swimming, golf or tennis until after your return appointment with your family doctor. - Do not ride motorcycles, tractors or horses until cleared by your doctor. Diet: - Heart healthy: low salt, low fat, low concentrated sweets. Remember to avoid added salt, canned foods, processed foods (ie hot dogs, sausage, cold meats), and foods naturally high in salt, such as potato chips or pizza. Driving: - Per your routine after [address] if you feel dizzy, light headed, or are taking narcotic medications (ie/ Oxycodone, Morphine, Dilaudid, etc). Shower/Bath: - You may shower 24 hours after cardiac catheterization. - You may not sit in water for 5 days (tub bath, hot tub or pool). Wound Care: - Cath site dressing may be removed in 24 hours. Site may be washed with soap/water. A dressing does not need to be reapplied unless irritation occurs with underclothes. If irritation occurs, apply clean band-aid daily. Exercise: - Exercise 5-7 days per week as tolerated with gradual increase to 30 minutes per day. Smoking cessation: - If you are currently a smoker, you are strongly urged to stop smoking! Smoking increases the severity and incidence of heart disease, and is a risk factor for cancer and emphysema. Your health careprovider can provide specific measures to assist you, including nicotine supplements, anti-anxiety meds, and support groups in your community. Follow up Appointments: Future Appointments Date Time Provider Department Center 11/20/2018 4:20 PM Karthikeyan Chu PA [facility] [place]: Please call your PCP to make a formal appointment within 7 days of leaving the hospital Your Inpatient Doctor(s) at [facility]: Jose Enrique Mckeon MD - Attending physician Genaro Falk DO - Resident physician Paramjit Alcantara MD - Forest Aide physician Your Primary Care Provider: Bandar Hernandez MD (Inactive) [address] [facility] [id number] For questions regarding issues relating to your hospitalization on the Hospital Medicine Service, please contact your inpatient physician through the [facility] [employer]er [phone]. Issues after hours and on weekends will be handled by the Hospitalist staff on-call. * Attachments The following attachments cannot be sent through Care Everywhere. * PCI (Percutaneous Coronary Intervention): Post-op (Romanian) documented in this encounter Medications at Time of Discharge Medication Sig Dispensed Refills Start Date End Date blood-glucose meter (FREESTYLE) Kit USE TO CHECK GLUCOSE THREE TIMES DAILY 0 07/18/2018 atorvastatin (LIPITOR) 80 mg Tablet Take 1 tablet by mouth every evening. 90 tablet 3 10/14/2018 11/18/2023 aspirin 81 mg Tablet, Chewable Take 81 mg by mouth daily. 30 tablet 3 10/15/2018 12/21/2023 clopidogrel (PLAVIX) 75 mg Tablet Take 1 tablet by mouth daily. 90 tablet 3 10/15/2018 06/04/2023 lisinopril (PRINIVIL;ZESTRIL) 10 mg Tablet Take 1 tablet by mouth daily. 90 tablet 3 10/15/2018 06/07/2023 metoprolol succinate (TOPROL-XL) 100 mg Tablet Sustained Release 24 hr Take 1 tablet by mouth daily. 30 tablet 12 10/15/2018 06/04/2023 nitroGLYcerin (NITROSTAT) 0.4 mg Tablet, Sublingual Place 1 tablet under the tongue every 5 minutes as needed for Chest pain. 90 tablet 12 10/14/2018 11/18/2023 documented as of this encounter Progress Notes * Brea Beckford RN - 10/14/2018 12:48 PM EDT Patient has been alert and oriented this shift. VSS. No reports of pain or discomfort. Has been ambulating independently on unit. Discharge order acknowledged. IV and telemetry d/c'd. AVS printed andprovided to patient. AVS and medications reviewed with patient. All questions answered. Pt discharged walking to [facility] with staff and girlfriend in stable condition. * Jose Enrique Mckeon MD - 10/14/2018 5:21 AM EDT Inpatient Cardiology Progress Note Patient Name: Hayden Russo Date of Admission: 10/12/2018 ( Hospital Day 2 days ) Service: S2 ID: Hayden Russo is a 42 y.o. male with a history of insulin-dependent type 2 diabetes mellitus, hypertension, hyperlipidemia and morbid obesity with a remote history of tobacco abuse who presents for an inferior STEMI s/p MARIALUISA to LCx and RCA. Active Problems: Inferior STEMI 24 hr events: - No acute events overnight. He has been very comfortable and is looking forward to dischrage - Discharge meds have been optimized for discharge today ROS: Denies CP, SOB, palpitations, PND, Orthopnea, dizziness/LH, LE swelling or pain, n/v, abd pain. Telemetry: Meds: Continuous Infusions: Scheduled Meds: ??? lisinopril 10 mg Oral Daily ??? insulin lispro 3-12 Units Subcutaneous Q4H ISAMAR ??? insulin lispro 0-10 Units Subcutaneous TID WC ??? insulin glargine 50 Units Subcutaneous Q24H ??? metoprolol succinate 100 mg Oral Daily ??? aspirin 81 mg Oral Daily ??? clopidogrel 75 mg Oral Daily ??? atorvastatin 80 mg Oral QPM ??? sodium chloride 0.9 % (flush) 5 mL Intravenous BID PRN Meds:.Glucose 40% oral gel OR dextrose OR glucagon (human recombinant), sodium chloride0.9 % (flush), lidocaine, nitroGLYcerin, acetaminophen Physical Exam: Last value Range last 24 hrs Temperature Temp: 36.6 ??C (97.9 ??F) Temp: [36.6 ??C (97.9 ??F)-36.8 ??C (98.2 ??F)] Heart Rate Heart Rate: 80 Heart Rate: [77-90] Blood Pressure BP: 129/75 BP: (109-137)/(68-81) Respiratory Rate Resp: 18 Resp: [17-19] SpO2 SpO2: 96 % SpO2: [96 %-99 %] Intake/Output Summary (Last 24 hours) at 10/14/2018 0949 Last data filed at 10/14/2018 0800 Gross per 24 hour Intake 1220 ml Output 1300 ml Net -80 ml cumulative I/O's since admission: Patient Vitals for the past 168 hrs: Weight 10/14/18 0430 99.8 kg (220 lb 0.3 oz) 10/13/18 0600 98.2 kg (216 lb 7.9 oz) 10/12/18 1740 99.3 kg (219 lb) Gen: obese younger manin bed in NAD; alert, oriented, interactive HEENT: MMM CV: RRR, S1S2, no m/r/g, no JVD Resp: CTAB Abd: obese abdomen, nondistended, soft, NT, +BS Ext: WWP, 2+ DP pulses, no lower extremity edema appreciated Neuro: grossly intact Labs Recent Labs 10/14/18 0722 10/13/18 0603 10/12/18 1432 WBC 8.8 8.8 11.5* 10.5* HGB 11.1* 11.1* 11.9* 11.7* HCT 37.7* 37.7* 40.2* 39.3* PLATELET 205 205 232 214 Recent Labs 10/14/18 0722 10/13/18 0603 10/12/18 1432 NA 140 139 136 K 4.3 4.5 4.5 CL 103 101 101 CO2 26 27 23 BUN 18 15 17 CREATININE 0.97 1.07 0.98 Recent Labs 10/12/18 1432 AST 88* ALT 49 ALKPHOS 67 BILITOT 0.6 BILIDIR 0.1 Recent Labs 10/14/18 0722 10/13/18 0603 10/12/18 1432 CALCIUM 8.6 9.1 8.9 MAGNESIUM 0.81 0.84 0.77 PHOS -- -- 3.4 Recent Labs 10/12/18 1432 INR 0.9 PT 10.7 PTT 27 Recent Labs 10/12/182002 TROPONINT 1.97* Recent Labs 10/14/18 0757 10/14/18 0426 10/14/18 0016 10/13/18 2216 10/13/18201110/13/18 1624 POCGLU 154 142 196 307* 289* 232* Imaging/Studies: TTE 10/12/2018: SUMMARY: ?? 1. Global left ventricular systolic function is mildly reduced. The quantitative left ventricular ejection fraction by biplane Rincon's method is 51%. The basal inferior, mid anterolateral, mid inferolateral, and apical lateral wall segments are hypokinetic (score 2). 2. Right ventricular global systolic function is probably normal. 3. Normal chamber and aortic dimensions 4. Normal valve structures. 5. There is no pericardial effusion. ? Findings : ?? Left Ventricle: The left ventricular chamber size is normal. Left ventricular wall thickness is normal. Global left ventricular systolic function is mildly reduced. The quantitative left ventricular ejection fraction by biplane Rincon's method is 51%. There are left ventricular segmental wall motion abnormalities present, as shown in the diagram below. The basal inferior, mid anterolateral, mid inferolateral, and apical lateral wall segments are hypokinetic (score 2). Overall wallmotion score index is 1.25 ?? Left Atrium: The left atrium is normal in size. ?? Right Ventricle: The right ventricle is normal in size. Right ventricular global systolic function is probably normal. No pulmonary hypertension is noted. ?? Right Atrium: The right atrium is normal in size. ?? Aortic Valve: The aortic valve is tricuspid. There is no evidence of aortic valve thickening. Systolic excursion of the aortic valve is normal. There is no evidence of aortic valve stenosis. There is no evidence of aortic regurgitation. ?? Mitral Valve: The mitral valve appears normal in structure and function. There is trace mitral regurgitation present. ?? Tricuspid Valve: The tricuspid valve is probably normal. There is trace tricuspid regurgitation present. ?? Pulmonic Valve: The pulmonic valve is probably normal. ?? Pericardium: There is no pericardial effusion. ?? Aorta: The aortic root is normal in size. The ascending aorta is normal in size. ?? Venous: The inferior vena cava is poorly visualized. EKG: Inferior Infarct Cardiac Catheterization 10/12/2018: Coronary Angiography: Dominance: Right Left Main The left main was normal, free of disease. Left Anterior Descending There was mild diffuse (<=25% stenosis) disease of the entire vessel segment of the left anterior descending artery (LAD). The mid segment of the LAD had a single discrete 45% stenosis. There also was a 60% single discrete stenosis of the distal segment of the LAD. Left Circumflex There was mild diffuse (<=25% stenosis) disease of the entire vessel segment of the left circumflex artery (LCX). The mid segment of the LCX had a single discrete 90% stenosis. There was a 60% single discrete stenosis of the ostial segment of the first obtuse marginal branch (OM1) of the LCX. The distal vessel was moderate in size. Right Coronary Artery There was mild diffuse (<=25% stenosis) disease of the entire vessel segment of the right coronary artery (RCA). The distal segment of the RCA had a single discrete 95% stenosis. Indication for Intervention: Coronary intervention was indicated for primary therapy for an acute myocardial infarction. The priority for the procedure was Emergent. The NCDR indication for the procedure was STEMI (after successful lytics). Thrombolytics were administered on 10/12/2018 at 4:34 AM. Intervention Summary: Left Circumflex Artery Mid 90% Stent insertion was performed on the 90% stenosis in the mid segment of the LCX. This was a de susy lesion. According to the ACC/AHA classification system, this lesion was a type B1 moderate risk lesion. Primary prevention of restenosis was the indication for stent insertion. This was the culprit lesion. A guidewire was placed across this lesion. Vessel flow pre intervention was FAUZIA 3. Lesion length was 20mm. The lesion involves a bifurcation with the OM1. This bifurcation lesion was treated with a single stent, side branch jailed and not treated technique. Stent insertion was accomplished through a 6 Fr. EBU 3.0 guide. The lesion was predilated with a 2.00mm APEX 12 MM balloon with a maximum inflation pressure of 12 atmospheres. A premounted 2.50 x 26 mm Resolute KAE (MARIALUISA) was deployed with a maximum inflation pressure of 12 atmospheres. Following stent deployment, the lesion was dilated using a 2.50mm NC EMERGE 20 MM balloon with a maximum inflation pressure of 16 atmospheres. The final outcome was defined as successful. A coronary arteriolar vasodilator was administered as part of the intervention on this lesion. There was no residual stenosis following this intervention. The final FAUZIA flow was 3. Right Coronary Artery Distal 95% Stent insertion was performed on the 95% stenosis in the distal segment of the RCA. This was a de susy lesion. This lesion was designated a type B1 moderate risk lesion based on ACC/AHA classification system. Primary prevention of restenosis was the indication for stent insertion. This was the culprit lesion. A guidewire was placed across this lesion. Vessel flow pre intervention was FAUZIA 3. Lesion length was 15mm. Stent insertion was accomplished through a 6 Fr. JR 4 guide. The lesion was predilated with a 2.00mm APEX 12 MM balloon with a maximum inflation pressure of 12 atmospheres. A premounted 2.25 x 22 mm Resolute KAE (MARIALUISA) was deployed with a maximum inflation pressure of 10 atmospheres. Following stent deployment, the lesion was dilated using a 2.50mm NC EUPHORA 20 MM balloon with a maximum inflation pressure of 15 atmospheres. The final outcome was defined as successful. There was no residual stenosis following this intervention. The final FAUZIA flow was 3. ASSESSMENT: Hayden Russo is a 42 y.o. male with a history of insulin-dependent type 2 diabetes mellitus,hypertension, hyperlipidemia and morbid obesity with a remote history of tobacco abuse who presentsfor an inferior STEMI s/p MARIALUISA to LCx and RCA. We have optimized his home medications for his cardiac health going forward. We have arranged follow up with cardiology here at on 11/20. He will follow up with his PCP in the next week. Also notedin the stay is that the patient needs better control of his outpatient diabetes regimen. PLAN: Inferior STEMI S/P MARIALUISA Distal RCA and Mid LCx - ASA 81mg qd - Plavix 75mg qd - currently on metoprolol succinate 100 mg Daily - Lisinopril 10 mg daily - Lipitor 80mg qhs - GTN prn chest pain ?? HTN - Continue Lisinopril - Continue Metoprolol HFrEF - On beta jacky, car-inhibitor - Mildly reduced LVEF ~51% in the setting of AR; will surveil on outpatient follow-up - NYHA Class I Insulin Dependant Diabetes Mellitus - Glargine 50 units nightly - Resistant SSI - Meal associated 1:10 Carb Ratio Other: - DVT prophylaxis: Ambulatory - GI prophylaxis: None - Diet: Carb Controlled - Code Status: Full - Dispo: Home Today Teddy Alcantara MD Emergency Medicine PGY-1 Cardiology S2, Pager [phone] 10/14/2018 Hayden is a 42-year-old man with diabetes mellitus, hypertension, dyslipidemia, and obesity, who is admitted [place] [facility] for an inferior STEMI. ??He underwent successful PCI of his RCA and left circumflexsystems. ??He has continued to show good recovery post revascularization. He does have mildly reduced LV systolic function in the setting of his AR, and he is on both metoprolol and lisinopril. He will need improved glycemic control longitudinally, and I would advise DAPT therapy for 12 months post-PCI. Otherwise, clinically stable for discharge home. * Jose Enrique Mckeon MD - 10/13/2018 9:32 AM EDT Inpatient Cardiology Progress Note Patient Name: Hayden Russo Date of Admission: 10/12/2018 ( Hospital Day 1 day ) Service: S2 ID: Hayden Russo is a 42 y.o. male with a history of insulin-dependent type 2 diabetes mellitus, hypertension, hyperlipidemia and morbid obesity with a remote history of tobacco abuse who presents for an inferior STEMI s/p MARIALUISA to LCx and RCA. Active Problems: Inferior STEMI 24 hr events: Patient has had labile blood sugars over the last 24 hours. His insulin sliding scale was increasedto severe resistance. Of note his hemoglobin A1c is greater than 13 this morning. ROS: Denies CP, SOB, palpitations, PND, Orthopnea, dizziness/LH, LE swelling or pain, n/v, abd pain. Telemetry: 70-105, NS, rare PVC's Meds: Continuous Infusions: Scheduled Meds: ??? lisinopril 10 mg Oral Daily ??? metoprolol tartrate 25 mg Oral Q6H ISAMAR ??? insulin lispro 3-12 Units Subcutaneous Q4H ISAMAR ??? insulin lispro 0-10 Units Subcutaneous TID WC ??? insulin glargine 50 Units Subcutaneous Q24H ??? aspirin 81 mg Oral Daily ??? clopidogrel 75 mg Oral Daily ??? atorvastatin 80 mg Oral QPM ??? sodium chloride 0.9 % (flush) 5 mL Intravenous BID PRN Meds:.Glucose 40% oral gel OR dextrose OR glucagon (human recombinant), sodium chloride0.9 % (flush), lidocaine, nitroGLYcerin, acetaminophen Physical Exam: Last value Range last 24 hrs Temperature Temp: 37 ??C (98.6 ??F) Temp: [36.7 ??C (98.1 ??F)-37.4 ??C (99.3 ??F)] Heart Rate Heart Rate: 74 Heart Rate: [74-103] Blood Pressure BP: 129/82 BP: (107-144)/(58-105) Respiratory Rate Resp: 16 Resp: [10-22] SpO2 SpO2: 100 % SpO2: [92 %-100 %] Intake/Output Summary (Last 24 hours) at 10/13/2018 0933 Last data filed at 10/13/2018 0826 Gross per 24 hour Intake 1175 ml Output 2125 ml Net -950 ml cumulative I/O's since admission: Patient Vitals for the past 168 hrs: Weight 10/13/18 0600 98.2 kg (216 lb 7.9 oz) 10/12/18 1740 99.3 kg (219 lb) Gen: in bed in NAD; alert, oriented, interactive HEENT: MMM CV: RRR, S1S2, no m/r/g, no JVD Resp: CTAB Abd: nondistended, soft, NT, +BS Ext: WWP, 2+ DP pulses, edema Neuro: grossly intact Labs Recent Labs 10/13/18 0603 10/12/18 1432 WBC 11.5* 10.5* HGB 11.9* 11.7* HCT 40.2* 39.3* PLATELET 232 214 Recent Labs 10/13/18 0603 10/12/18 1432 NA 139 136 K 4.5 4.5 CL 101 101 CO2 27 23 BUN 15 17 CREATININE 1.07 0.98 Recent Labs 10/12/18 1432 AST 88* ALT 49 ALKPHOS 67 BILITOT 0.6 BILIDIR 0.1 Recent Labs 10/13/18 0603 10/12/18 1432 CALCIUM 9.1 8.9 MAGNESIUM 0.84 0.77 PHOS -- 3.4 Recent Labs 10/12/18 1432 INR 0.9 PT 10.7 PTT 27 Recent Labs 10/12/182002 TROPONINT 1.97* Recent Labs 10/13/18 0740 10/13/18 0422 10/13/18 0049 10/12/18 2230 10/12/18200210/12/18 1818 POCGLU 179 161 188 249* 350* 292* Imaging/Studies: TTE: Pending Read EKG: Inferior Infarct Cardiac Catheterization: Coronary Angiography: Dominance: Right Left Main The left main was normal, free of disease. Left Anterior Descending There was mild diffuse (<=25% stenosis) disease of the entire vessel segment of the left anterior descending artery (LAD). The mid segment of the LAD had a single discrete 45% stenosis. There also was a 60% single discrete stenosis of the distal segment of the LAD. Left Circumflex There was mild diffuse (<=25% stenosis) disease of the entire vessel segment of the left circumflex artery (LCX). The mid segment of the LCX had a single discrete 90% stenosis. There was a 60% single discrete stenosis of the ostial segment of the first obtuse marginal branch (OM1) of the LCX. The distal vessel was moderate in size. Right Coronary Artery There was mild diffuse (<=25% stenosis) disease of the entire vessel segment of the right coronary artery (RCA). The distal segment of the RCA had a single discrete 95% stenosis. Indication for Intervention: Coronary intervention was indicated for primary therapy for an acute myocardial infarction. The priority for the procedure was Emergent. The [facility] indication for the procedure was STEMI (after successful lytics). Thrombolytics were administered on 10/12/2018 at 4:34 AM. Intervention Summary: Left Circumflex Artery Mid 90% Stent insertion was performed on the 90% stenosis in the mid segment of the LCX. This was a de susy lesion. According to the ACC/AHA classification system, this lesion was a type B1 moderate risk lesion. Primary prevention of restenosis was the indication for stent insertion. This was the culprit lesion. A guidewire was placed across this lesion. Vessel flow pre intervention was FAUZIA 3. Lesion length was 20mm. The lesion involves a bifurcation with the OM1. This bifurcation lesion was treated with a single stent, side branch jailed and not treated technique. Stent insertion was accomplished through a 6 Fr. EBU 3.0 guide. The lesion was predilated with a 2.00mm APEX 12 MM balloon with a maximum inflation pressure of 12 atmospheres. A premounted 2.50 x 26 mm Resolute KAE (MARIALUISA) was deployed with a maximum inflation pressure of 12 atmospheres. Following stent deployment, the lesion was dilated using a 2.50mm NC EMERGE 20 MM balloon with a maximum inflation pressure of 16 atmospheres. The final outcome was defined as successful. A coronary arteriolar vasodilator was administered as part of the intervention on this lesion. There was no residual stenosis following this intervention. The final FAUZIA flow was 3. Right Coronary Artery Distal 95% Stent insertion was performed on the 95% stenosis in the distal segment of the RCA. This was a de susy lesion. This lesion was designated a type B1 moderate risk lesion based on ACC/AHA classification system. Primary prevention of restenosis was the indication for stent insertion. This was the culprit lesion. A guidewire was placed across this lesion. Vessel flow pre intervention was FAUZIA 3. Lesion length was 15mm. Stent insertion was accomplished through a 6 Fr. JR 4 guide. The lesion was predilated with a 2.00mm APEX 12 MM balloon with a maximum inflation pressure of 12 atmospheres. A premounted 2.25 x 22 mm Resolute KAE (MARIALUISA) was deployed with a maximum inflation pressure of 10 atmospheres. Following stent deployment, the lesion was dilated using a 2.50mm NC EUPHORA 20 MM balloon with a maximum inflation pressure of 15 atmospheres. The final outcome was defined as successful. There was no residual stenosis following this intervention. The final FAUZIA flow was 3. ASSESSMENT: Hayden Russo is a 42 y.o. male with a history of insulin-dependent type 2 diabetes mellitus,hypertension, hyperlipidemia and morbid obesity with a remote history of tobacco abuse who presentsfor an inferior STEMI s/p MARIALUISA to LCx and RCA. Plan today will be to increase his goal-directed medical therapy as tolerated. Of note, the patienthas significantly uncontrolled diabetes and is at risk for multiple diabetic complications. We willincrease his insulin regimen today and make recommendations to his primary care physician regardingup titration of his glargine. Otherwise, the patient is tolerating therapy and feeling well. Likely discharge tomorrow. PLAN: Inferior STEMI S/P MARIALUISA Distal RCA and Mid LCx - Medications (Respective loading doses previously given): - ASA 81mg qd - Plavix 75mg qd - Lopressor 25 every 6 hours - Lisinopril 10 mg daily - Lipitor 80mg qhs - GTN prn chest pain - Labs - CBC, CMP, coags stat - Imaging - EKG per chest pain protocol - TTE ?? HTN - Continue Lisinopril - Continue Metoprolol Insulin Dependant Diabetes Mellitus - Glargine 50 units nightly - Resistant SSI - Meal associated 1:10 Carb Ratio Other: - DVT prophylaxis: Ambulatory - GI prophylaxis: None - Diet: Carb Controlled - Code Status: Full - Dispo: 10/14, Home Genaro Falk, DO Internal Medicine PGY3 Cardiology S2, Pager [phone] 10/13/2018 Hayden is a 42-year-old man with diabetes mellitus, hypertension, dyslipidemia, and obesity, who is admitted [place] [facility] for an inferior STEMI. He underwent successful PCI of his RCA and left circumflex systems. We will continue his post intervention care and optimization of his cardiac and diabetic regimen. He will need improved glycemic control, and I would advise DAPT therapy for 12 months post-PCI. * Shadia Dolan MD - 10/12/2018 11:08 PM EDT Post Cardiac Catheterization Check Note Subjective: No chest pain, dyspnea, abdominal/groin/back. No rash. No weakness/numbness/tingling. No bleeding/swelling from access site. Objective: Blood pressure 125/64, pulse 85, temperature 37.4 ??C (99.3 ??F), temperature source Oral, resp. rate 18, height 177.8 cm (5' 10), weight 99.3 kg (219 lb), SpO2 98 %. General: Lying in bed in NAD. Site: access site without hematoma or ecchymoses. dressing c/d/i. No bruit. Nontender. Extrem: no livedo reticularis, warm/symmetric, sensation intact/symmetric, symmetric 2+ PT/DP pulses. A/P: s/p cath with benign-appearing right femoral access site and no issues Shadia Dolan MD documented in this encounter H&P Notes * Genaro Falk DO - 10/12/2018 10:57 AM EDT Images from the original note were not included. Cardiovascular Medicine Admission History and Physical Patient Name: Hayden Russo Service: Cardiology S2 Team Responsible Attending: Jose Enrique Mckeon MD PCP: Bandar Hernandez MD (Inactive) PCP phone #: [phone] ID/Chief Complaint: Inferior STEMI History of Present Illness: Hayden Russo is a 42 y.o. male with a past medical history of insulin- dependent type 2 diabetes mellitus, hypertension, hyperlipidemia and morbid obesity with a remote history of tobacco abusewho presents in [facility] for an inferior STEMI. Patient was in his usual state of health until yesterday at work when he began having bilateral armpain. Overnight he had progressive chest tightness and chest pain with nausea and shortness of breath. He had no associated diaphoresis. He came to the emergency department at 3:30 AM and was found to have ST elevations in the inferior leads. He was given lytics, loaded with aspirin, clopidogrel and started on a heparin drip. Shortly after became chest pain-free. [place] [facility] the patient was in no acute distress. In the catheterization lab the patient had multivessel disease including a 95% distal RCA and a 90% left circumflex lesion. These were treated with drug-eluting stents and FAUZIA-3 flow. After the catheterization, the patient is chest pain-free without orthopnea. He has some residual soreness on his right wrist but has no numbness or tingling or other altered sensations. Review of Systems: GENERAL HEENT CV PULM All negative All negative All negative All negative Weight loss Headache Chest Pain Non-productive cough Weight gain Vision change Palpitations Productive cough Fevers Sinus congestion Orthopnea Wheezing Chills Hoarseness LE edema Hemoptysis Night sweats Epistaxis PND Pleuritic pain Fatigue Syncope SOB Claudication MONTENEGRO [facility]K RENAL ENDO GI All negative All negative All negative All negative Arthralgias Frequency Heat intolerance Blood in stool Myalgias Urgency Cold intolerance Dysphagia Weakness Hematuria Polydipsia Odynophagia Stiffness Flank pain Polyphagia Abdominal discomfort Dysuria Cushingoid Constipation Foamy urine Diarrhea Discharge Nausea/Vomiting LYMPH SKIN NEURO PSYCH All negative All negative All negative All negative Swollen nodes Rash Seizures Depressed affect Tender nodes Ulcers Tremors Occupational stress Diffuse nodes Bruising Spasticity Anxiety Local nodes Tanned skin Focal weakness Insomnia Night sweats Telangiectasias Diplopia Paresthesias Dizziness Problem List/Past Medical History Patient Active Problem List Diagnosis ??? Acute ST elevation myocardial infarction (STEMI) of inferior wall Meds: No current facility-administered medications on file prior to encounter. Current Outpatient Medications on File Prior to Encounter Medication Sig Dispense Refill ??? atorvastatin (LIPITOR) 10 mg Tablet Take 10 mg by mouth daily. ??? insulin glargine Solution Inject 50 Units subcutaneously nightly. ??? 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 Appears stated age. HEENT: EOMI, PERRL, anicteric sclera. Oropharynx clear w/o lesions. Moist mucous membranes Neck: Supple with normal ROM. No obvious LAD. JVD not elevated Cardiac: Normal S1 and S2, Regular rate and rhythm; No murmrs/gallops/rubs. Respiratory: Nonlabored. Clear to auscultation bilaterally; No wheezes/ rhonci/ rales. Abd: Obese. + BS; soft, non-tender, non-distended, no obvious masses. Ext: Right wrist access site with TR band in place. No hematoma and good sensation distally. Otherwise WWP without le edema, cyanosis or clubbing. DPP 2+ bilaterally. Neuro: II-XII grossly intact. Alert and orientated, no-focal deficits, sensation intact to crude touch Skin: No rashs, no lesions, no petechiae Lines: PIV Laboratory: CBC: No results for input(s): WBC, HGB, PLATELET in the last 7068 hours. Chemistry: No results for input(s): NA, K, CL, CO2, BUN, CREATININE, GLUCOSE in the last 7068 hours. No results for input(s): CALCIUM, MAGNESIUM, PHOS in the last 7068 hours. LFT's: No results for input(s): BILITOT, BILIDIR, ALBUMIN, ALKPHOS, ALT, AST in the last 7068 hours. Coags: No results for input(s): PT, INR, PTT, FIBRINOGEN, DDIMER in the last 168 hours. Invalid input(s): THROMBIN TIME Cardiac enzymes: No results for input(s): TROPONINT, CK in the last 7068 hours. Endocrine: No results for input(s): TSH, CORTISOL in the last 7068 hours. Invalid input(s): [id number] Heme: No results for input(s): LDH, HAPTOGLOBIN, URICACID in the last 168 hours. Microbiology: None Diagnostic Studies: EKG- Inferior STEMI CXR- Pending Cardiac Catheterization- 90% Mid LCx (MARIALUISA inserted), 95% Distal RCA (MARIALUISA inserted) Other notable findings consisted of a distal 60% LAD lesion, ostial 60% lesion of OM1. TTE- Pending ASSESSMENT: Hayden Russo is a 42 y.o. male with a past medical history of insulin- dependent type 2 diabetes mellitus, hypertension, hyperlipidemia and morbid obesity with a remote history of tobacco abusewho presents in transfer from [facility] for an inferior STEMI. Plan to initiate goal-directed medical therapy as tolerated and educated patient on lifestyle modification. Follow-up transthoracic echocardiogram to be done. PLAN: Admit to Cardiology, S2 Team Pager #[phone] Inferior STEMI S/P MARIALUISA Distal RCA and Mid LCx - Medications (Respective loading doses previously given): - ASA 81mg qd - Plavix 75mg qd - Lopressor 12.5 every 6 hours - Lisinopril 5 mg daily - Lipitor 80mg qhs - GTN prn chest pain - Labs - Cycle cardiac enzymes stat and q6h. Discontinue once peak is noted - CBC, CMP, coags stat - Lipid profile, hba1c tomorrow AM - Imaging - EKG stat and qam - EKG per chest pain protocol - CXR stat - TTE HTN - Start Lisinopril - Start Metoprolol Insulin Dependant Diabetes Mellitus - Glargine 50 units nightly - SSI - Meal associated 1:12 Carb Ratio Other: - DVT prophylaxis: Heparin - GI prophylaxis: None - Diet: Carbo Controlled - Code Status: Full - Dispo:10/14 Gnearo Falk, DO Internal Medicine PGY3 Cardiology S2, Pager [phone] 10/12/2018 Associated attestation - Jose Enrique Mckeon MD - 10/12/2018 11:39 AM EDT I have reviewed the resident's above history and I agree with the details as written. The assessment and plan were formulated in discussion with me and I agree with them as documented. Hayden is a 42-year-old man with diabetes mellitus, hypertension, dyslipidemia, and obesity, who is admitted [place] [facility] [place] an inferior STEMI. He underwent successful PCI of his RCA and left circumflex systems. We willcontinue his post intervention care and optimization of his medical regimen. documented in this encounter Miscellaneous Notes * Plan of Care - Ghazal Lopez RN - 10/13/2018 5:27 AM EDT OUTCOME EVALUATION NOTE: OUTCOME SUMMARY: Pt had a good shift. A&O. VSS on RA. Denied CP or SOB. No other complaints of pain or discomfort. R radial and R groin Site CDI, no signs of bleeding or hematomas. Blood sugars elevated during the night. Resident notified and insulin regimen changed. Significant other at bedside throughout shift. NSR on tele with rare PVCs. Will continue to monitor PLAN MOVING FORWARD: STEMI Protocol, Continue D/C planning as appropriate INDIVIDUALIZED FALL PREVENTION INTERVENTIONS: Patient-specific fall risk factors per assessment: [current deficits]: Generalized weakness, unfamiliar environment, tubes/wires Assistance [level of assistance required for transfers and ambulation]: sba Supervision [direct monitoring required during toileting and ADLs]: Nurse's station, purposeful hourly rounding, call tenorio within reach Surveillance [continuous indirect monitoring]: Tele, o2 monitoring Patient-specific fall prevention interventions for sensory deficits provided, if applicable: lighting adjusted for task/safety. CPG GOAL OUTCOME EVALUATION: Ongoing * Consult Note - Waleska Gross RN - 10/12/2018 3:08 PM EDT Hayden Russo was seen today by Cardiac Rehabilitation for: STEMI, s/p PCI Activity evaluation - Patient currently remains on bedrest. Nursing staff to assess when medically appropriate. Educational packet regarding CAD, cardiac risk factors, and managing angina given to the patient. Reviewed managing angina /use of sl nitroglycerin. Mediterranean diet guidelines briefly reviewed. Given parameters for home exercise. Participation in an outpatient cardiac rehabilitation program at [facility] was discussed. Patient agrees to a referral to this program. The referral will be sent at discharge and the patient should be contacted by the Program within 1- 2 weeks from discharge. 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 Technique: Seldinger via right radial artery. Seldinger via right femoral artery. Heparin: 8,000U administered. ACT: Pre 143, Peak 284. Contrast: 205cc Omnipaque. Radiation: Fluoro time: 18.0 minutes, dose area product: 239,233 mGYcm2 and air kerma: 3,418 mGY. Findings: Hemodynamics: Syst Diast EDP a v m Ao 116 66 89 LV 118 20 Coronary Angiography: Right Dominant LM Normal. LAD Entire vessel - Mild diffuse. Mid - 45%. Distal - 60%. LCX Entire vessel - Mild diffuse. Mid - 90%. Moderate in size. OM1 - Ostial - 60%. Distal vessel moderate in size. RCA Entire vessel - Mild diffuse. Distal - 95%. Moderate in size. Intervention Summary: LCX - Mid 90% Stent Inserted: Predilatation - 2.00mm APEX 12 MM Max 12 adriana. Device - 2.50 x 26 mm Resolute KAE. Deployment - premounted 12 adriana. Postdilatation - 2.50mm NC EMERGE 20 MM Max 16 adriana. Final Result: Vasodilator given. No residual stenosis. Indication for stent - prevent primary restenosis. RCA - Distal 95% Stent Inserted: Predilatation - 2.00mm APEX 12 MM Max 12 adriana. Device - 2.25 x 22 mm Resolute KAE. Deployment - premounted 10 adriana. Postdilatation - 2.50mm NC EUPHORA 20 MM Max 15 adriana. Final Result: No residual stenosis. Indication for stent - prevent primary restenosis. Vascular Access Angiogram: An angiogram at the right femoral artery revealed no significant obstructive disease. Other findings: Inferior epigastric artery low. Complications/Events: None The attending physician was present for the entire procedure. Dr. Camron Patton M.D. performed the coronary angiography, stent insertion- coronary, left heart catheterization and access site angiography. Vahe Hoffman M.D. (Fellow) Camron Patton M.D. documented in this encounter Plan of Treatment Upcoming Encounters Date Type Department Care Team (Late st Contact Info) Description 01/31/2024 9:30 AM EST Office Visit [place] [phone] Donavon Frey MD [facility] [place] [address] 02/06/2024 1:00 PM EST Office Visit Cardiology at [address] [phone] Adrian Tello MD [facility] [place] [address] 04/25/2024 10:30 AM EST Office Visit Sleep Center at [address] [phone] Maria De Jesus Lange APRN [facility] [place] [address] Scheduled Referrals Name Type Priority Associated Diagnoses Orde r Schedule Referral to Cardiac Rehab Outpatient Referral Routine ST elevation myocardial infarction (STEMI) of inferior wall Ordered: 10/14/2018 documented as of this encounter Procedures Procedure Name Priority Date/Time Associated Diagnosis Comments POCT GLUCOSE Routine 10/14/2018 12:04 PM EDT POCT GLUCOSE Routine 10/14/2018 7:57 AM EDT PATHOLOGY SLIDE REVIEW Routine 9 7:22 AM EDT HEMOGRAM Routine 10/14/2018 7:22 AM EDT HEMOGLOBIN ELECTROPHORESIS REPORT Routine 10/14/2018 7:22 AM EDT BMP W/FASTING GLUCOSE Routine 10/14/2018 7:22 AM EDT HEMOGLOBIN ELECTROPHORESIS (EDDY) Routine 10/14/2018 7:22 AM EDT SCAN, PERIPHERAL BLOOD Routine 9 7:22 AM EDT HEMOGRAM Routine 10/14/2018 7:22 AM EDT DIFFERENTIAL, AUTOMATED Routine 10/15/19 19 7:22 AM EDT HC IRON BINDING CAPACITY Routine 10/14/2018 7:22 AM EDT HC VENIPUNCTURE Routine 10/14/2018 7:22 AM EDT HC HEMOGRAM Routine 10/14/2018 7:22 AM EDT HC MAGNESIUM, SERUM Routine 10/14/2018 7 :22 AM EDT HC FERRITIN, SERUM Routine 10/14/2018 7: 22 AM EDT POCT GLUCOSE Routine 10/14/2018 4:26 AM EDT PATHOLOGY SLIDE REVIEW Routine 9 1:11 AM EDT POCT GLUCOSE Routine 10/14/2018 12:16 AM EDT POCT GLUCOSE Routine 10/13/2018 10:16 PM EDT POCT GLUCOSE Routine 10/13/2018 8:12 PM EDT POCT GLUCOSE Routine 10/13/2018 4:24 PM EDT POCT GLUCOSE Routine 10/13/2018 2:01 PM EDT POCT GLUCOSE Routine 10/13/2018 11:41 AM EDT POCT GLUCOSE Routine 10/13/2018 11:40 AM EDT POCT GLUCOSE Routine 10/13/2018 7:40 AM EDT BMP W/FASTING GLUCOSE Routine 10/13/2018 6:03 AM EDT HEMOGRAM Routine 10/13/2018 6:03 AM EDT DIFFERENTIAL, AUTOMATED Routine 10/14/19 19 6:03 AM EDT HC CBC,PLT & AUTO DIFF Routine 9 6:03 AM EDT HC TRIGLYCERIDES Routine 10/13/2018 6:03 AM EDT HC MAGNESIUM, SERUM Routine 10/13/2018 6 :03 AM EDT HC LDL CHOLESTEROL, DIRECT Routine 10/13/2018 6:03 AM EDT HC CHOLESTEROL Routine 10/13/2018 6:03 AM EDT HC VENIPUNCTURE Routine 10/13/2018 6:03 AM EDT POCT GLUCOSE Routine 10/13/2018 4:22 AM EDT HC TROPONIN T Routine 10/12/2018 8:03 PM EDT ECHO COMPLETE W CONTRAST Routine 10/12/2018 5:[address] elevation myocardial infarction (STEMI) of inferior wall POCT GLUCOSE Routine 10/12/2018 4:15 PM EDT HC THYROID STIMULATING HORMONE, SERUM Routine 10/12/2018 2:32 PM EDT SCAN, PERIPHERAL BLOOD Routine 9 2:32 PM EDT HEMOGRAM Routine 10/12/2018 2:32 PM EDT DIFFERENTIAL, AUTOMATED Routine 10/13/19 19 2:32 PM EDT HC PARTIAL THROMBOPLASTIN TIME Routine 10/12/2018 2:32 PM EDT HC PROTHROMBIN TIME Routine 10/12/2018 2 :32 PM EDT HC VENIPUNCTURE Routine 10/12/2018 2:32 PM EDT HC PHOSPHORUS, SERUM Routine 10/12/2018 2:32 PM EDT HC PROBNP Routine 10/12/2018 2:32 PM EDT HC MAGNESIUM, SERUM Routine 10/12/2018 2 :32 PM EDT HEPATIC FUNCTION PANEL Routine 9 2:32 PM EDT BASIC METABOLIC PANEL Routine 10/12/2018 2:32 PM EDT EKG 12-LEAD Routine 10/12/2018 11:[address] elevation myocardial infarction (STEMI) of inferior wall CARDIAC CATHETERIZATION Routine 10/13/19 19 10:00 AM EDT documented in this encounter Results * (ABNORMAL) POCT Glucose (10/14/2018 12:04 PM EDT) Glucose, POC 301(H) 65 - 199 mg/dL [facility] Comment: Supplemental ranges: <140 mg/dL before meals <180 mg/dL all other times of the day Blood specimen (specimen) 10/14/2018 12:04 PM EDT 10/14/2018 12:04 PM EDT Jose Enrique Mckeon MD POINT OF CARE TEST O RDERABLES [facility] [place] [address] * POCT Glucose (10/14/2018 7:57 AM EDT) Glucose, POC 154 65 - 199 mg/dL [facility] Comment: Supplemental ranges: <140 mg/dL before meals <180 mg/dL all other times of the day Blood specimen (specimen) 10/14/2018 7:57 AM EDT 10/14/2018 7:57 AM EDT Jose Enrique Mckeon MD POINT OF CARE TEST O RDERABLES [facility] [place] [address] * Hemoglobin Electrophoresis Report (10/14/2018 7:22 AM EDT) Hemoglobin Electrophoresis Report [id number] ? Location: [facility]; [facility]; The signing pathologist has (i) examined the relevant preparation(s) for the specimen(s) and (ii) rendered or confirmed the diagnosis(es). . ?Hemoglobin Electrophoresis DIAGNOSIS Microcytic, hypochromic anemia with elevated hemoglobin A2, consistent with beta- thalassemia trait (see comment). RDW is usually not elevated in beta-thalassemia trait, and may suggest possible iron deficiency. Please correlate with clinical history. Electronically signed by: ??Andrew Sun MD Verified: ??10/16/2018 ?Hematopathologist Performed at: ??-[facility] [place]. [place], [place], [place] DISCUSSION WBC 8.4K/ul; RBC 5.5x10 ??6/ul; Hgb 11.1; MCV 68.7; RDW 15.4; PLT 205K/ul Morphology: Slight ??red blood cells anisopoikilocytosis with microcytes seen ??Hemoglobin Capillary ??Electrophoresis Study at 9.4: Hemoglobin A2 Quantification: 5.8 % (Normal 2.1% - 3.2%) Hemoglobin A 92.4% Hemoglobin F 1.8 % ADDITIONAL STUDIES NOT DONE CLINICAL INFORMATION LOW MCV [facility] 10/14/2018 7:22 AM EDT Genaro Falk DO PATHOLOGY/CYTOLOGY O RDERABLES Performing Organization Address City/[facility]/ZIP Co de Phone Number [facility] [place] [address] * Scan, Peripheral Blood (10/14/2018 7:22 AM EDT) Plat estimate Normal [facility] RBC Morphology Abnormal [facility] Microcyte 6-10 /HPF [facility] Ovalocytes 1-5 /HPF [facility] Plat, Giant Less than 1 /HPF [facility] Blood specimen (specimen) 10/14/2018 7:22 AM EDT 10/14/2018 7:43 AM EDT Narrative Resulting Agency Comment Spec In Lab Genaro Falk DO HEMATOLOGY ORDERABLE S Performing Organization Address City/[facility]/ZIP Co de Phone Number [facility] [place] [address] * (ABNORMAL) Hemogram (10/14/2018 7:22 AM EDT) [facility] White Blood Cell 8.8 4.0 - 9.5 x10(3)/mc L [facility] Red Blood Cell 5.49 4.58 - 5.54 x10(6)/mc L [facility] Hemoglobin 11.1(L) 13.7 - 16.5 gm/dL [facility] Hematocrit 37.7(L) 40.5 - 48.5 % [facility] Mean Cell Volume 68.7(L) 82.9 - 93.1 fL [facility] Mean Cell Hemoglobin 20.2(L) 27.5 - 32.1 pg [facility] Mean Cell Hemoglobin Concentration 29.4(L) 32.0 - 35.7 gm/dL [facility] Platelet 205 145 - 357 x10(3)/mc L [facility] RDW Standard Deviation 37.7 36.0 - 45.0 fL [facility] RDW coefficient of variation 15.4(H) 11.4 - 13.8 % [facility] Mean Platelet Volume 11.2 7.6 - 12.9 fL [facility] NRBC% auto 0.0 % [facility] NRBC Absolute 0.000 0.000 - 0.000 x10(3)/mc L [facility] Blood specimen (specimen) 10/14/2018 7:22 AM EDT 10/14/2018 7:43 AM EDT Narrative Resulting Agency Comment Spec In Lab Genaro Falk DO HEMATOLOGY ORDERABLE S Performing Organization Address City/State/[facility] Co de Phone Number [facility] [place] [address] * (ABNORMAL) Hemogram (10/14/2018 7:22 AM EDT) White Blood Cell 8.8 4.0 - 9.5 x10(3)/ L [facility] Red Blood Cell 5.49 4.58 - 5.54 x10(6)/mc L [facility] Hemoglobin 11.1(L) 13.7 - 16.5 gm/dL [facility] Hematocrit 37.7(L) 40.5 - 48.5 % [facility] Mean Cell Volume 68.7(L) 82.9 - 93.1 [facility] Mean Cell Hemoglobin 20.2(L) 27.5 - 32.1 pg [facility] Mean Cell Hemoglobin Concentration 29.4(L) 32.0 - 35.7 gm/dL [facility] Platelet 205 145 - 357 x10(3)/mc L [facility] RDW Standard Deviation 37.7 36.0 - 45.0 [facility] RDW coefficient of variation 15.4(H) 11.4 - 13.8 % [facility] Mean Platelet Volume 11.2 7.6 - 12.9 [facility] NRBC% auto 0.0 % [facility] NRBC Absolute 0.000 0.000 - 0.000 x10(3)/mc L [facility] Blood specimen (specimen) 10/14/2018 7:22 AM EDT 10/14/2018 7:43 AM EDT Narrative Resulting Agency Comment Spec In Lab Genaro Falk DO HEMATOLOGY ORDERABLE S Performing Organization Address [facility] Co de Phone Number [facility] [place] [address] * Hemoglobin Electrophoresis (10/14/2018 7:22 AM EDT) [facility] Hgb El See Comment [facility] Comment: Testing completed, Hemoglobin Electrophoresis Report [id number] ??to follow under Hematology Reports. Hemoglobin A Percent 92.4 % [facility] Hemoglobin A2 Percent 5.8 [facility] Hemoglobin F Percent 0.8 [facility] Blood specimen (specimen) 10/14/2018 7:22 AM EDT 10/14/2018 7:43 AM EDT Narrative Resulting Agency Comment Spec In Lab Genaro Falk DO LAB SEND OUT ORDERAB LES Performing Organization Address [facility] Co de Phone Number [facility] [place] [address] * (ABNORMAL) Differential, Automated (10/14/2018 7:22 AM EDT) Pathologist [facility] Neutrophil % 70.2 % [facility] Neutrophil Absolute 6.20(H) 1.70 - 6.10 x10(3)/mc L [facility] Lymph % 17.7 % [facility] Lymphocytes Abs 1.6 0.9 - 3.2 x10(3)/mc L [facility] Monocyte % 9.4 % [facility] Monocyte Abs 0.8 0.3 - 0.9 x10(3)/mc L [facility] Eos % 1.5 % [facility] Eosinophils Abs 0.1 0.0 - 0.4 x10(3)/ L [facility] Basophil % 0.5 % [facility] Baso Absolute 0.0 0.0 - 0.1 x10(3)/[facility] Immature Gran % 0.70 % [facility] Comment: Immature granulocytes(IG's)percentage and absolute count will include metamyelocytes, myelocytes, and promyelocytes. Blood smears from CBCs yielding IG's will be scanned manually for concordance. If this scan disagrees with the automated IG or if promyelocytes are noted, a manual differential will be performed. Immature Gran Absolute 0.06(H) 0.00 - 0.04 x10(3)/ L [facility] Blood specimen (specimen) 10/14/2018 7:22 AM EDT 10/14/2018 7:43 AM EDT Narrative Resulting Agency Comment Spec In Lab Genaro Falk DO HEMATOLOGY ORDERABLE S Performing Organization Address City/[facility]/ZIP Co de Phone Number [facility] [place] [address] * Magnesium (10/14/2018 7:22 AM EDT) Magnesium 0.81 0.69 - 1.07 mmol/L [facility] Blood specimen (specimen) 10/14/2018 7:22 AM EDT 10/14/2018 7:43 AM EDT Narrative Resulting Agency Comment Spec In Lab Jose Enrique Mckeon MD CHEMISTRY ORDERABLES Performing Organization Address City/[facility]/ZIP Co de Phone Number [facility] [place] [address] * (ABNORMAL) BMP w/fasting Glucose (10/14/2018 7:22 AM EDT) Glucose Fasting 181(H) 65 - 99 mg/dL [facility] Comment: ?Fasting* Glucose Interpretive Criteria Normal [...] of Diabetes Mellitus, Position Statement from the [place] [employer]. ??Diabetes Care, Volume 33, Supplement 1, Feb 2009 Blood Urea Nitrogen 18 10 - 20 mg/dL [facility] Creatinine 0.97 0.80 - 1.50 mg/dL [facility] Sodium 140 135 - 145 mmol/L [facility] Potassium 4.3 3.5 - 5.0 mmol/L [facility] Comment: Please note: ??Patients with WBC >100,000 may have falsely elevated Potassium levels. ??For accurate Potassium quantification in these patients send serum separator tube (gold top) for subsequent determinations. ??Contact the Clinical Chemistry Laboratory if there are any questions. Chloride 103 98 - 107 mmol/L [facility] Carbon Dioxide 26 22 - 31 mmol/L [facility] Anion Gap 11 5 - 15 mmol/L [facility] Calcium 8.6 8.5 - 10.5 mg/dL [facility] Est Glomerular Filtration Rate 97 >=60 mL/min/1. 73 m?? [facility] Comment: The eGFR was calculated using the CKD-EPI equation. As with all creatinine based estimates of kidney function, eGFR values calculated with the CKD-EPI equation are not accurate in patients with acute kidney failure, extremes of body mass or the acutely ill. http://[employer]/DHMCnkf eGFR 113 >=60 mL/min/1. 73 m?? [facility] Comment: The eGFR was calculated using the CKD-EPI equation. As with all creatinine based estimates of kidney function, eGFR values calculated with the CKD-EPI equation are not accurate in patients with acute kidney failure, extremes of body mass or the acutely ill. [email or web address]/[email or web address] Blood specimen (specimen) 10/14/2018 7:22 AM EDT 10/14/2018 7:43 AM EDT Narrative Resulting Agency Comment Spec In Lab Jose Enrique Mckeon MD CHEMISTRY ORDERABLES Performing Organization Address City/[facility]/ZIP Co de Phone Number [facility] [place] [address] * Peripheral Smear Review (10/14/2018 7:22 AM EDT) Peripheral Smear Review See Comment [facility] Comment: When completed by the Pathologist, report [id number] will display under Hematopathology Reports. Blood specimen (specimen) 10/14/2018 7:22 AM EDT 10/14/2018 7:43 AM EDT Narrative Resulting Agency Comment Spec In Lab Jose Enrique Mckeon MD HEMATOLOGY ORDERABLE S Performing Organization Address [facility] Co de Phone Number [facility] [place] [address] * (ABNORMAL) Ferritin (10/14/2018 7:22 AM EDT) Ferritin 479(H) 30 - 400 ng/mL [facility] Comment: Pediatric reference ranges not [place] [facility] interpret with caution. Reference ranges for females greater than 50 years of age approach values for men, i.e., 30-400 ng/mL. Blood specimen (specimen) 10/14/2018 7:22 AM EDT 10/14/2018 7:43 AM EDT Narrative Resulting Agency Comment Spec In Lab Jose Enrique Mckeon MD CHEMISTRY ORDERABLES Performing Organization Address City/[facility] Co de Phone Number [facility] [place] [address] * (ABNORMAL) Iron and TIBC (10/14/2018 7:22 AM EDT) [facility] Iron 39(L) 45 - 160 mcg/dL [facility] TIBC 247(L) 250 - 450 mcg/dL [facility] Iron Saturation 16(L) 20 - 50 % [facility] Blood specimen (specimen) 10/14/2018 7:22 AM EDT 10/14/2018 7:43 AM EDT Narrative Resulting Agency Comment Spec In Lab Jose Enrique Mckeon MD CHEMISTRY ORDERABLES Performing Organization Address [facility] Co de Phone Number [facility] [place] [address] * POCT Glucose (10/14/2018 4:26 AM EDT) [facility] Glucose, POC 142 65 - 199 mg/dL [facility] Comment: Supplemental ranges: <140 mg/dL before meals <180 mg/dL all other times of the day Blood specimen (specimen) 10/14/2018 4:26 AM EDT 10/14/2018 4:26 AM EDT Jose Enrique Mckeon MD POINT OF CARE TEST O RDERABLES Performing Organization Address [facility] Co de Phone Number [facility] [place] [address] * Smear Review Report (10/14/2018 1:11 AM EDT) [facility] Smear Review Report [id number] ? Location: [facility]; [facility]; A The signing pathologist has (i) examined the relevant preparation(s) for the specimen(s) and (ii) rendered or confirmed the diagnosis(es). . ? Smear Review DIAGNOSIS Microcytic anemia. Electronically signed by: ??Andrew Sun MD Verified: ??10/15/2018 ?Hematopatholog ist Performed at: ??-[facility] [place], [place], [place] DISCUSSION This can be seen in nutritional deficiencies ( iron) , anemia of chronic inflammation. Once iron defy is ruled out; ??microcytosis can be seen in thalassemis . Reticulated Hemoglobin ( RET-HE test offered under reticulocyte count) is a more sensitive indicator of current iron stores available for hemoglobin synthesis and can be ordered if clinically indicated . ADDITIONAL STUDIES See e-DH: LAB and PATHOLOGY, Lab Results, CBC and manual differential. CLINICAL INFORMATION anemia. [facility] 10/14/2018 1:11 AM EDT Genaro Falk DO HEMATOLOGY ORDERABLE S Performing Organization Address [facility] Co de Phone Number [facility] [place] [address] * POCT Glucose (10/14/2018 12:16 AM EDT) Glucose, POC 196 65 - 199 mg/dL [facility] Comment: Supplemental ranges: <140 mg/dL before meals <180 mg/dL all other times of the day Blood specimen (specimen) 10/14/2018 12:16 AM EDT 10/14/2018 12:16 AM EDT Jose Enrique Mckeon MD POINT OF CARE TEST O RDERABLES Performing Organization Address City/[facility]/ZIP Co de Phone Number [facility] [place] [address] * (ABNORMAL) POCT Glucose (10/13/2018 10:16 PM EDT) Glucose, POC 307(H) 65 - 199 mg/dL [facility] Comment: Supplemental ranges: <140 mg/dL before meals <180 mg/dL all other times of the day Blood specimen (specimen) 10/13/2018 10:16 PM EDT 10/13/2018 10:16 PM EDT Jose Enrique Mckeon MD POINT OF CARE TEST O RDERACHARLI Performing Organization Address [facility] Co de Phone Number [facility] [place] [address] * (ABNORMAL) POCT Glucose (10/13/2018 8:12 PM EDT) Glucose, POC 289(H) 65 - 199 mg/dL [facility] Comment: Supplemental ranges: <140 mg/dL before meals <180 mg/dL all other times of the day Blood specimen (specimen) 10/13/2018 8:12 PM EDT 10/13/2018 8:12 PM EDT Jose Enrique Mckeon MD POINT OF CARE TEST O LAURENERACHARLI Performing Organization Address [facility] Co de Phone Number [facility] [place] [address] * (ABNORMAL) POCT Glucose (10/13/2018 4:24 PM EDT) Glucose, POC 232(H) 65 - 199 mg/dL [facility] Comment: Supplemental ranges: <140 mg/dL before meals <180 mg/dL all other times of the day Blood specimen (specimen) 10/13/2018 4:24 PM EDT 10/13/2018 4:24 PM EDT Jose Enrique Mckeon MD POINT OF CARE TEST O RDERACHARLI Performing Organization Address [facility] Co de Phone Number [facility] [place] [address] * (ABNORMAL) POCT Glucose (10/13/2018 2:01 PM EDT) Glucose, POC 325(H) 65 - 199 mg/dL [facility] Comment: Supplemental ranges: <140 mg/dL before meals <180 mg/dL all other times of the day Blood specimen (specimen) 10/13/2018 2:01 PM EDT 10/13/2018 2:01 PM EDT Jose Enrique Mckeon MD POINT OF CARE TEST O RDRACHELL Performing Organization Address [facility] Co de Phone Number [facility] [place] [address] * (ABNORMAL) POCT Glucose (10/13/2018 11:41 AM EDT) Glucose, POC 293(H) 65 - 199 mg/dL [facility] Comment: Supplemental ranges: <140 mg/dL before meals <180 mg/dL all other times of the day Blood specimen (specimen) 10/13/2018 11:41 AM EDT 10/13/2018 11:41 AM EDT Jose Enrique Mckeon MD POINT OF CARE TEST O [place] Performing Organization Address [facility] Co de Phone Number [facility] [place] [address] * (ABNORMAL) POCT Glucose (10/13/2018 11:40 AM EDT) Glucose, POC 337(H) 65 - 199 mg/dL [facility] Comment: Supplemental ranges: <140 mg/dL before meals <180 mg/dL all other times of the day Blood specimen (specimen) 10/13/2018 11:40 AM EDT 10/13/2018 11:40 AM EDT Jose Enrique Mckeon MD POINT OF CARE TEST O RDRACHELL Performing Organization Address [facility] Co de Phone Number [facility] [place] [address] * POCT Glucose (10/13/2018 7:40 AM EDT) Glucose, POC 179 65 - 199 mg/dL [facility] Comment: Supplemental ranges: <140 mg/dL before meals <180 mg/dL all other times of the day Blood specimen (specimen) 10/13/2018 7:40 AM EDT 10/13/2018 7:40 AM EDT Jose Enrique Mckeon MD POINT OF CARE TEST O RDERABLES [facility] [place] [address] * (ABNORMAL) Differential, Automated (10/13/2018 6:03 AM EDT) Neutrophil % 75.7 % [facility] Neutrophil Absolute 8.70(H) 1.70 - 6.10 x10(3)/mc L [facility] Lymph % 14.1 % [facility] Lymphocytes Abs 1.6 0.9 - 3.2 x10(3)/[facility] LAB[facility]AT[facility] Monocyte % 7.9 % [facility] Monocyte Abs 0.9 0.3 - 0.9 x10(3)/[facility] LAB[facility] Eos % 1.5 % [facility] Eosinophils Abs 0.2 0.0 - 0.4 x10(3)/[facility] Basophil % 0.4 % [facility] Baso Absolute 0.0 0.0 - 0.1 x10(3)/[facility] LAB[facility] Immature Gran % 0.40 % [facility] Comment: Immature granulocytes(IG's)percentage and absolute count will include metamyelocytes, myelocytes, and promyelocytes. Blood smears from CBCs yielding IG's will be scanned manually for concordance. If this scan disagrees with the automated IG or if promyelocytes are noted, a manual differential will be performed. Immature Gran Absolute 0.05(H) 0.00 - 0.04 x10(3)/ L [facility] Blood specimen (specimen) 10/13/2018 6:03 AM EDT 10/13/2018 6:17 AM EDT Narrative Resulting Agency Comment Spec In Lab Genaro Falk DO HEMATOLOGY ORDERABLE S [facility] [place] [address] * (ABNORMAL) Hemogram (10/13/2018 6:03 AM EDT) Pathologist [facility] White Blood Cell 11.5(H) 4.0 - 9.5 x10(3)/[facility] LABORATORY Red Blood Cell 5.95(H) 4.58 - 5.54 x10(6)/[facility] Hemoglobin 11.9(L) 13.7 - 16.5 gm/dL [facility] Hematocrit 40.2(L) 40.5 - 48.5 % [facility] Mean Cell Volume 67.6(L) 82.9 - 93.1 fL [facility] Mean Cell Hemoglobin 20.0(L) 27.5 - 32.1 pg [facility] Mean Cell Hemoglobin Concentration 29.6(L) 32.0 - 35.7 gm/dL [facility] Platelet 232 145 - 357 x10(3)/[facility] LABORATORY RDW Standard Deviation 37.5 36.0 - 45.0 [facility] RDW coefficient of variation 16.2(H) 11.4 - 13.8 % [facility] Mean Platelet Volume 11.4 7.6 - 12.9 fL [facility] NRBC% auto 0.0 % [facility] NRBC Absolute 0.000 0.000 - 0.000 x10(3)/[facility] Blood specimen (specimen) 10/13/2018 6:03 AM EDT 10/13/2018 6:17 AM EDT Narrative Resulting Agency Comment Spec In Lab Genaro Falk DO HEMATOLOGY ORDERABLE S [facility] [place] [address] * Magnesium (10/13/2018 6:03 AM EDT) Pathologist [facility] Magnesium 0.84 0.69 - 1.07 mmol/L [facility] Blood specimen (specimen) 10/13/2018 6:03 AM EDT 10/13/2018 6:17 AM EDT Narrative Resulting Agency Comment Spec In Lab Jose Enrique Mckeon MD CHEMISTRY ORDERABLES [facility] [place] [address] * (ABNORMAL) BMP w/fasting Glucose (10/13/2018 6:03 AM EDT) Glucose Fasting 179(H) 65 - 99 mg/dL [facility] Comment: ?Fasting* Glucose Interpretive Criteria Normal [...] of Diabetes Mellitus, Position Statement from the [place] [employer]. ??Diabetes Care, Volume 33, Supplement 1, Feb 2009 Blood Urea Nitrogen 15 10 - 20 mg/dL [facility] Creatinine 1.07 0.80 - 1.50 mg/dL [facility] Sodium 139 135 - 145 mmol/L [facility] Potassium 4.5 3.5 - 5.0 mmol/L [facility] Comment: Please note: ??Patients with WBC >100,000 may have falsely elevated Potassium levels. ??For accurate Potassium quantification in these patients send serum separator tube (gold top) for subsequent determinations. ??Contact the Clinical Chemistry Laboratory if there are any questions. Chloride 101 98 - 107 mmol/L [facility] Carbon Dioxide 27 22 - 31 mmol/L [facility] Anion Gap 11 5 - 15 mmol/L [facility] Calcium 9.1 8.5 - 10.5 mg/dL [facility] Est Glomerular Filtration Rate 86 >=60 mL/min/1. 73 m?? [facility] Comment: The eGFR was calculated using the CKD-EPI equation. As with all creatinine based estimates of kidney function, eGFR values calculated with the CKD-EPI equation are not accurate in patients with acute kidney failure, extremes of body mass or the acutely ill. [email or web address] eGFR 100 >=60 mL/min/1. 73 m?? [facility] Comment: The eGFR was calculated using the CKD-EPI equation. As with all creatinine based estimates of kidney function, eGFR values calculated with the CKD-EPI equation are not accurate in patients with acute kidney failure, extremes of body mass or the acutely ill. [email or web address] Blood specimen (specimen) 10/13/2018 6:03 AM EDT 10/13/2018 6:17 AM EDT Narrative Resulting Agency Comment Spec In Lab Jose Enrique Mckeon MD CHEMISTRY ORDERABLES Performing Organization Address City/[facility]/ZIP Co de Phone Number [facility] [place] [address] * Triglyceride (10/13/2018 6:03 AM EDT) Triglyceride 269 mg/dL [facility] Comment: Average Risk/Lower Risk: <150 mg/dL Borderline High Risk: 150-199 mg/dL High Risk: 200-499 mg/dL Very High Risk: >vm=485 mg/dL Blood specimen (specimen) 10/13/2018 6:03 AM EDT 10/13/2018 6:17 AM EDT Narrative Resulting Agency Comment Spec In Lab Camron Patton II, MD CHEMISTRY ORDER DAVID [facility] [place] [address] * HDL/Cholesterol Profile (10/13/2018 6:03 AM EDT) Cholesterol, Total 138 mg/dL [facility] Comment: Lower Risk: <200 mg/dL Average Risk: 200-239 mg/dL Higher Risk: >sn=549 mg/dL HDL Cholesterol 28 mg/dL [facility] Comment: Males: ?? Higher Risk: <40 mg/dL Females: ?? HIgher Risk: <50 mg/dL Cholesterol/HDL Ratio 4.9 ratio [facility] Chol/HDL Interpretation See Note [facility] Comment: Lipid management should be guided by a patient? s ASCVD risk, goals and preferences. ACC/AHA Guidelines recommend high intensity statin if clinical ASCVD or LDL greater than or equal to 190 mg/dL. http://[employer]com/UIM-ZUH-Khdikygfi Measure LDL if Total Cholesterol minus HDL Cholesterol is greater than 220 mg/dL. Adults aged 40-75 with LDL 70-189 mg/dL should have their 10 year ASCVD risk estimated with the ACC/AHA ASCVD risk tube lancer http://tools.acc.org/XZECL-Szsv-Zeorbhorb/ Statin should be discussed if risk greater than or equal to 7.5% in non-diabetics. With diabetes, moderate intensity statin is recommended if risk less than 7.5%, high intensity if risk greater than or equal to 7.5%. Annual lipid monitoring on statins is not necessary. Lifestyle modification is a critical component of ASCVD risk reduction. Blood specimen (specimen) 10/13/2018 6:03 AM EDT 10/13/2018 6:17 AM EDT Narrative Resulting Agency Comment Spec In Lab Camron Patton II, MD CHEMISTRY ORDER DAVID [facility] [place] [address] * LDL Cholesterol, Direct (10/13/2018 6:03 AM EDT) LDL Cholesterol, Direct 72 mg/dL [facility] Comment: Lowest Risk: <100 mg/dL Lower Risk: 100-129 mg/dL Borderline High Risk: 130-159 mg/dL High Risk: 160-189 mg/dL Very High Risk: >cu=231 mg/dL Blood specimen (specimen) 10/13/2018 6:03 AM EDT 10/13/2018 6:17 AM EDT Narrative Resulting Agency Comment Spec In Lab Camron Patton II, MD CHEMISTRY ORDER DAVID [facility] [place] [address] * (ABNORMAL) Hemoglobin A1c (10/13/2018 6:03 AM EDT) Hemoglobin A1c 13.9(H) 4.3 - 5.6 % [facility] Comment: Reference Range: 4.3 - 5.6% [...] Mellitus, Diabetes Care 2013; 36: Suppl. 1, S67-70 Estimated Average Glucose 351 mg/dL [facility] Comment: eAG equivalents for HbA1c percentages: HbA1c(%) ?eAG(mg/dL) 6.0 ?126 6.5 ?140 7.0 ?154 7.5 ?169 8.0 ?183 8.5 ?197 9.0 ?212 9.5 ?226 10.0 ? 240 Limitations: The eAG calculation has not been validated on women, individuals below 18 years old and above 70 years old, and individuals with hemoglobinopathies. Additional resources are available on the ADA website. Karthikeyan SANTANA, Marimar J, Corey R, et al. ??Translating the A1C assay into estimated average glucose values. ??Diabetes Care 2008:31(8):4207-0021. Blood specimen (specimen) 10/13/2018 6:03 AM EDT 10/13/2018 6:17 AM EDT Narrative Resulting Agency Comment Spec In Lab Camron Patton II, MD CHEMISTRY ORDER DAVID Performing Organization Address [facility] Co de Phone Number [facility] [place] [address] * POCT Glucose (10/13/2018 4:22 AM EDT) Glucose, POC 161 65 - 199 mg/dL [facility] Comment: Supplemental ranges: <140 mg/dL before meals <180 mg/dL all other times of the day Blood specimen (specimen) 10/13/2018 4:22 AM EDT 10/13/2018 4:22 AM EDT Jose Enrique Mckeon MD POINT OF CARE TEST O RDERABLES Performing Organization Address [facility] Co de Phone Number [facility] [place] [address] * (ABNORMAL) Troponin (10/12/2018 8:03 PM EDT) Troponin-T 1.97(H) 0.00 - 0.00 ng/mL [facility] Comment: The 99th percentile for Troponin T is less than 0.01 ng/mL, any detectable cTnT concentration using this assay should be considered elevated. According to the third universal definition of myocardial infarction the following criteria with a clinical presentation consistent with acute myocardial ischemia meets the diagnosis for a myocardial infarction (AR). Detection of a rise and/or fall of cTnT, with at least one value greater than the 99th percentile (> or = 0.01) and with at least one of the following ?? Symptoms of ischemia ?? New or presumed new significant UK-ueszuac-C wave (ST-T) changes or new left bundle branch block (LBBB) ?? Development of pathologic Q waves in the ECG ?? Imaging evidence of new loss of viable myocardium or new regional wall motion abnormality ?? Identification of an intracoronary thrombus by angiography or autopsy Samples for cTnT testing should be obtained serially upon first assessment and again 3 to 6 hours later. If the clinical suspicion is high and previous samples have been negative an additional sample may be indicated. Reference: Third [place] Definition of Myocardial Infarction. Journal of the [place] College of [employer]iology 2012;60:1581-98 Blood specimen (specimen) 10/12/2018 8:03 PM EDT 10/12/2018 8:08 PM EDT Narrative Resulting Agency Comment Spec In Lab Jose Enrique Mckeon MD CHEMISTRY ORDERABLES Performing Organization Address City/State/[facility] Co de Phone Number [facility] [place] [address] * ECHO COMPLETE W CONTRAST (10/12/2018 5:33 PM EDT) EF 51 HEARTLAB SYSTEM Anatomical Region Laterality Modality Other 10/13/2018 Narrative 10/13/2018 1:11 PM EDT Procedure: ?Transthoracic Echocardiogram Patient: ?NAOMI REN ?? (Age): 1975(42y) Med Rec#: ? [id number] ?Sex: ?M ? [place] Loc[place] ? [facility] ?Ht / Wt: ??177(cm)/98.43(k Pt. Loc: ?Adult Floor ? BSA: ?2.15 Study Date: ?? 10/12/2018 ?Pt. Type: Inpatient Tape: ? Referring: MAKAYLA Reading: Alec Downs ([id number]) Experience Specialist: Julio Goodson MS, RDCS Diagnosis: *ST elevation (STEMI) myocardial infarction involving other coronary artery of inferior wall (I21.19) BP: ? 140/82 SUMMARY: 1. Global left ventricular systolic function is mildly reduced. The quantitative left ventricular ejection fraction by biplane Rincon's method is 51%. The ??basal inferior, mid anterolateral, mid inferolateral, and ??apical lateral wall segments are hypokinetic (score 2). 2. Right ventricular global systolic function is probably normal. 3. Normal chamber and aortic dimensions 4. Normal valve structures. ?? 5. There is no pericardial effusion. Findings ? : Left Ventricle: ? The left ventricular chamber size is normal. ?Left ventricular wall thickness is normal. ?Global left ventricular systolic function is mildly reduced. ?The quantitative left ventricular ejection fraction by biplane Rincon's method is 51%. ?There are left ventricular segmental wall motion abnormalities present, as shown in the diagram below. ?The ??basal inferior, mid anterolateral, mid inferolateral, and apical lateral wall segments are hypokinetic (score 2). ?Overall wallmotion score index is ??1.25 Left Atrium: ? The left atrium is normal in size. Right Ventricle: ? The right ventricle is normal in size. ?Right ventricular global systolic function is probably normal. ?No pulmonary hypertension is noted. Right Atrium: ? The right atrium is normal in size. Aortic Valve: ? The aortic valve is tricuspid. ?There is no evidence of aortic valve thickening. ?Systolic excursion of the aortic valve is normal. ?There is no evidence of aortic valve stenosis. ?There is no evidence of aortic regurgitation. Mitral Valve: ? The mitral valve appears normal in structure and function. ?There is trace mitral regurgitation present. Tricuspid Valve: ? The tricuspid valve is probably normal. ?There is trace tricuspid regurgitation present. Pulmonic Valve: ? The pulmonic valve is probably normal. Pericardium: ? There is no pericardial effusion. Aorta: ? The aortic root is normal in size. ?The ascending aorta is normal in size. Venous: ? The inferior vena cava is poorly visualized. Misc: ? Two-dimensional echo, spectral Doppler and color Doppler performed. ?Optison contrast (one 3 ml vial) was used to enhance endocardial definition. Excess contrast was discarded. Chambers 2D ?Value ?Units (Range) ? IVSd (2D) ? 1.1 ?cm ? LVPWd (2D) ?1 ?cm ? IVS:LVPW ratio (2D) 1 ?ratio ? RWT (2D) ?0.5 ?ratio ? RWT PW (2D) ? 0.5 ?ratio ? LVIDd (2D) ?4.5 ?cm ? LVIDs (2D) ?3 ?cm ? LVIDd (2D) index ?2.1 ?cm/m2 ? LVIDs (2D) index ?1.4 ?cm/m2 ? LV FS (2D) ?32 ? % ? Ao root diameter (2D3.2 ?cm (2.1 - 3.6) ? Ascending Ao ?3 ?cm (2 - 3.5) ? Volumes/Mass ?Value ?Units (Range) ? LA Area 4 CH ?15.4 ? cm2 (<21) ? RA AREA 4CH ? 9.3 ?cm2 ? LA ESV BP (MOD) inde17 ? ml/m2 ? LV ESV SP 4CH (MOD) 43.7 ? ml ? LV ESV SP 2CH (MOD) 46.1 ? ml ? LV EDV BP ? 96.7 ? ml ? LV ESV BP ? 47.1 ? ml ? LV EDV BP index ? 45 ? ml/m2 ? LV ESV BP index ? 21.9 ? ml/m2 ? BP EF (MOD) ? 51 ? % ? LV mass (2D) ?162.2 ?g ? LV mass (2D) index ??75.4 ? g/m2 ? Diastolic/Systolic Function ?Value ?Units (Range) ? MV E-wave Vmax ?0.8 ?m/sec ? MV deceleration lymi903 ?msec ? MV A-wave Vmax ?0.5 ?m/sec ? MV E:A ratio ?1.7 ?ratio ? LV E:e' septal ratio13.5 ? ratio ? LV E:e' lateral rati9.3 ?ratio ? Tricuspid Valve ?Value ?Units (Range) ? TAPSE ? 2.7 ?cm ? RV lateral s' Vmax ??0.1 ?m/sec ? TR Vmax ? 1.9 ?m/sec ? TR peak gradient ?14 ? mmHg ? Wall Motion: Segment Name ?Rest ? Base-Anteroseptal ?? Normal ? Base-Anterior ? Normal ? Base-Anterolateral ??Normal ? Base-Posterolateral Normal ? Base-Inferior ? Hypokinetic ? Base-Inferoseptal ?? Normal ? Mid-Anteroseptal ?Normal ? Mid-Anterior ?Normal ? Mid-Anterolateral ?? Hypokinetic ? Mid-Posterolateral ??Hypokinetic ? Mid-Inferior ?Normal ? Mid-Inferoseptal ?Normal ? [place]-Septal ? Normal ? [place]-Anterior ? Normal ? [place]-Lateral ?Hypokinetic ? [place]-Inferior ? Normal ? [place]-Tip ?Normal ? This report has been electronically signed by: Alec Downs MD ? 10/13/2018 13:10:32 Images reviewed and interpretation verified [facility] Cardiac Ultrasound Laboratory Procedure Note Alec Downs MD - 10/13/2018 Procedure: Transthoracic Echocardiogram Patient: NAOMI PERLA(Age): 1975(42y) Med Rec#: [id number] Sex: M [place] [facility] Ht / Wt: 177(cm)/98.43(k Pt. Loc: Adult Floor BSA: 2.15 Study Date: 10/12/2018 Pt. Type: Inpatient Tape: Referring: MAKAYLA Reading: Alec Downs ([id number]) Experience Specialist: Julio Goodson MS, [facility] Diagnosis: *ST elevation (STEMI) myocardial infarction involving other coronary artery of inferior wall (I21.19) BP: 140/82 SUMMARY: 1. Global left ventricular systolic function is mildly reduced. The quantitative left ventricular ejection fraction by biplane Rincon's method is 51%. The basal inferior, mid anterolateral, mid inferolateral, and apical lateral wall segments are hypokinetic (score 2). 2. Right ventricular global systolic function is probably normal. 3. Normal chamber and aortic dimensions 4. Normal valve structures. 5. There is no pericardial effusion. Findings : Left Ventricle: The left ventricular chamber size is normal. Left ventricular wall thickness is normal. Global left ventricular systolic function is mildly reduced. The quantitative left ventricular ejection fraction by biplane Rincon's method is 51%. There are left ventricular segmental wall motion abnormalities present, as shown in the diagram below. The basal inferior, mid anterolateral, mid inferolateral, and apical lateral wall segments are hypokinetic (score 2). Overall wallmotion score index is 1.25 Left Atrium: The left atrium is normal in size. Right Ventricle: The right ventricle is normal in size. Right ventricular global systolic function is probably normal. No pulmonary hypertension is noted. Right Atrium: The right atrium is normal in size. Aortic Valve: The aortic valve is tricuspid. There is no evidence of aortic valve thickening. Systolic excursion of the aortic valve is normal. There is no evidence of aortic valve stenosis. There is no evidence of aortic regurgitation. Mitral Valve: The mitral valve appears normal in structure and function. There is trace mitral regurgitation present. Tricuspid Valve: The tricuspid valve is probably normal. There is trace tricuspid regurgitation present. Pulmonic Valve: The pulmonic valve is probably normal. Pericardium: There is no pericardial effusion. Aorta: The aortic root is normal in size. The ascending aorta is normal in size. Venous: The inferior vena cava is poorly visualized. Misc: Two-dimensional echo, spectral Doppler and color Doppler performed. Optison contrast (one 3 ml vial) was used to enhance endocardial definition. Excess contrast was discarded. Chambers 2D Value Units (Range) IVSd (2D) 1.1 cm LVPWd (2D) 1 cm IVS:LVPW ratio (2D) 1 ratio RWT (2D) 0.5 ratio RWT PW (2D) 0.5 ratio LVIDd (2D) 4.5 cm LVIDs (2D) 3 cm LVIDd (2D) index 2.1 cm/m2 LVIDs (2D) index 1.4 cm/m2 LV FS (2D) 32 % Ao root diameter (2D3.2 cm (2.1 - 3.6) Ascending Ao 3 cm (2 - 3.5) Volumes/Mass Value Units (Range) LA Area 4 CH 15.4 cm2 (<21) RA AREA 4CH 9.3 cm2 LA ESV BP (MOD) inde17 ml/m2 LV ESV SP 4CH (MOD) 43.7 ml LV ESV SP 2CH (MOD) 46.1 ml LV EDV BP 96.7 ml LV ESV BP 47.1 ml LV EDV BP index 45 ml/m2 LV ESV BP index 21.9 ml/m2 BP EF (MOD) 51 % LV mass (2D) 162.2 g LV mass (2D) index 75.4 g/m2 Diastolic/Systolic Function Value Units (Range) MV E-wave Vmax 0.8 m/sec MV deceleration [id number] msec MV A-wave Vmax 0.5 m/sec MV E:A ratio 1.7 ratio LV E:e' septal ratio13.5 ratio LV E:e' lateral rati9.3 ratio Tricuspid Valve Value Units (Range) TAPSE 2.7 cm RV lateral s' Vmax 0.1 m/sec TR Vmax 1.9 m/sec TR peak gradient 14 mmHg Wall Motion: Segment Name Rest Base-Anteroseptal Normal Base-Anterior Normal Base-Anterolateral Normal Base-Posterolateral Normal Base-Inferior Hypokinetic Base-Inferoseptal Normal Mid-Anteroseptal Normal Mid-Anterior Normal Mid-Anterolateral Hypokinetic Mid-Posterolateral Hypokinetic Mid-Inferior Normal Mid-Inferoseptal Normal [place]-Septal Normal [place]-Anterior Normal [place]-Lateral Hypokinetic [place]-Inferior Normal [place]-Tip Normal This report has been electronically signed by: Alec Downs MD 10/13/2018 13:10:32 Images reviewed and interpretation verified [facility] Cardiac Ultrasound [facility] Jose Enrique Mckeon MD ECHO ORDERABLES * (ABNORMAL) POCT Glucose (10/12/2018 4:15 PM EDT) Glucose, POC 326(H) 65 - 199 mg/dL [facility] Comment: Supplemental ranges: <140 mg/dL before meals <180 mg/dL all other times of the day Blood specimen (specimen) 10/12/2018 4:15 PM EDT 10/12/2018 4:15 PM EDT Jose Enrique Mckeon MD POINT OF CARE TEST O RDERABLES Performing Organization Address City/[facility]/ZIP Co de Phone Number [facility] [place] [address] * Scan, Peripheral Blood (10/12/2018 2:32 PM EDT) Pathologist [facility] Plat estimate Normal [facility] RBC Morphology Abnormal [facility] Microcyte 6-10 /HPF [facility] Hypochromia Slight [facility] Ovalocytes 1-5 /HPF [facility] Blood specimen (specimen) 10/12/2018 2:32 PM EDT 10/12/2018 2:51 PM EDT Narrative Resulting Agency Comment Spec In Lab Genaro Falk DO HEMATOLOGY ORDERABLE S Performing Organization Address City/[facility]/ZIP Co de Phone Number [facility] [place] [address] * (ABNORMAL) Differential, Automated (10/12/2018 2:32 PM EDT) Pathologist [facility] Neutrophil % 78.7 % [facility] Neutrophil Absolute 8.29(H) 1.70 - 6.10 x10(3)/mc L [facility] Lymph % 14.0 % [facility] Lymphocytes Abs 1.5 0.9 - 3.2 x10(3)/mc L [facility] Monocyte % 5.5 % [facility] Monocyte Abs 0.6 0.3 - 0.9 x10(3)/mc L [facility] Eos % 0.7 % [facility] Eosinophils Abs 0.1 0.0 - 0.4 x10(3)/mc L [facility] Basophil % 0.5 % [facility] Baso Absolute 0.0 0.0 - 0.1 x10(3)/mc L [facility] Immature Gran % 0.60 % [facility] Comment: Immature granulocytes(IG's)percentage and absolute count will include metamyelocytes, myelocytes, and promyelocytes. Blood smears from CBCs yielding IG's will be scanned manually for concordance. If this scan disagrees with the automated IG or if promyelocytes are noted, a manual differential will be performed. Immature Gran Absolute 0.06(H) 0.00 - 0.04 x10(3)/ L [facility] Blood specimen (specimen) 10/12/2018 2:32 PM EDT 10/12/2018 2:51 PM EDT Narrative Resulting Agency Comment Spec In Lab Genaro Falk DO HEMATOLOGY ORDERABLE S [facility] [place] [address] * (ABNORMAL) Hemogram (10/12/2018 2:32 PM EDT) White Blood Cell 10.5(H) 4.0 - 9.5 x10(3)/[facility] Red Blood Cell 5.84(H) 4.58 - 5.54 x10(6)/mc [facility] Hemoglobin 11.7(L) 13.7 - 16.5 gm/dL [facility] Hematocrit 39.3(L) 40.5 - 48.5 % [facility] Mean Cell Volume 67.3(L) 82.9 - 93.1 fL [facility] Mean Cell Hemoglobin 20.0(L) 27.5 - 32.1 pg [facility] Mean Cell Hemoglobin Concentration 29.8(L) 32.0 - 35.7 gm/dL [facility] Platelet 214 145 - 357 x10(3)/mc L [facility] RDW Standard Deviation 36.6 36.0 - 45.0 [facility] RDW coefficient of variation 15.5(H) 11.4 - 13.8 % [facility] Mean Platelet Volume 12.2 7.6 - 12.9 [facility] NRBC% auto 0.0 % [facility] NRBC Absolute 0.000 0.000 - 0.000 x10(3)/mc L [facility] Blood specimen (specimen) 10/12/2018 2:32 PM EDT 10/12/2018 2:51 PM EDT Narrative Resulting Agency Comment Spec In Lab Genaro Falk DO HEMATOLOGY ORDERABLE S Performing Organization Address [facility] Co de Phone Number [facility] [place] [address] * APTT (10/12/2018 2:32 PM EDT) Partial Thromboplastin Time 27 25 - 37 sec [facility] Comment: The PTT is NOT appropriate for heparin monitoring. Use the Anti-Xa level for heparin monitoring (HEP UFH) or LMWH monitoring (HEP LMW). A PTT less than 37 seconds generally indicates adequate hemostasis. Blood specimen (specimen) 10/12/2018 2:32 PM EDT 10/12/2018 2:51 PM EDT Narrative Resulting Agency Comment Spec In Lab Camron Patton II, MD HEMATOLOGY MYKE BIGGS Performing Organization Address [facility] Co de Phone Number [facility] [place] [address] * Prothrombin Time (10/12/2018 2:32 PM EDT) Prothrombin Time 10.7 9.4 - 12.5 sec [facility] International Normalization Ratio 0.9 [facility] Comment: An INR <2.0 [...] be appropriate depending on clinical circumstances. Blood specimen (specimen) 10/12/2018 2:32 PM EDT 10/12/2018 2:51 PM EDT Narrative Resulting Agency Comment Spec In Lab Camron Patton II, MD HEMATOLOGY MYKE BIGGS Performing Organization Address City/[facility]/ZIP Co de Phone Number [facility] [place] [address] * TSH Coal (10/12/2018 2:32 PM EDT) Thyroid Stimulating Hormone 1.88 0.27 - 4.20 mcIU/mL [facility] Blood specimen (specimen) 10/12/2018 2:32 PM EDT 10/12/2018 2:51 PM EDT Narrative Resulting Agency Comment Spec In Lab Camron Patton II, MD CHEMISTRY ORDER DAVID Performing Organization Address City/[facility] Co de Phone Number [facility] [place] [address] * (ABNORMAL) Hepatic Function Panel (10/12/2018 2:32 PM EDT) Protein, Total 6.8 6.1 - 8.0 gm/dL [facility] Albumin 3.8 3.2 - 5.2 gm/dL [facility] Aspartate Aminotransferase 88(H) 0 - 39 unit/L [facility] Alanine Aminotransferase 49 0 - 55 unit/L [facility] Alkaline Phosphatase 67 40 - 130 unit/L [facility] Bilirubin, Total 0.6 0.2 - 1.3 mg/dL [facility] Bilirubin, Direct 0.1 0.0 - 0.3 mg/dL [facility] Blood specimen (specimen) 10/12/2018 2:32 PM EDT 10/12/2018 2:51 PM EDT Narrative Resulting Agency Comment Spec In Lab Camron Patton II, MD CHEMISTRY ORDER DAVID Performing Organization Address City/[facility]/ZIP Co de Phone Number [facility] [place] [address] * (ABNORMAL) pro-Brain Natriuretic Peptide (10/12/2018 2:32 PM EDT) NT-proBNP 1,349(H) <=125 pg/mL [facility] Blood specimen (specimen) 10/12/2018 2:32 PM EDT 10/12/2018 2:51 PM EDT Narrative Resulting Agency Comment Spec In Lab Camron Patton II, MD CHEMISTRY ORDER DAVID [facility] [place] [address] * Phosphorus (10/12/2018 2:32 PM EDT) Pathologist [facility] Phosphorus 3.4 2.5 - 4.5 mg/dL [facility] Blood specimen (specimen) 10/12/2018 2:32 PM EDT 10/12/2018 2:51 PM EDT Narrative Resulting Agency Comment Spec In Lab Camron Patton II, MD CHEMISTRY ORDER DAVID [facility] [place] [address] * Magnesium (10/12/2018 2:32 PM EDT) Magnesium 0.77 0.69 - 1.07 mmol/L [facility] Blood specimen (specimen) 10/12/2018 2:32 PM EDT 10/12/2018 2:51 PM EDT Narrative Resulting Agency Comment Spec In Lab Camron Patton II, MD CHEMISTRY ORDER DAVID [facility] [place] [address] * (ABNORMAL) Basic Metabolic Panel (non-fasting) (10/12/2018 2:32 PM EDT) Glucose 340(H) 65 - 199 mg/dL [facility] Comment:Diabetes: >=200 mg/d L plus symptoms Blood Urea Nitrogen 17 10 - 20 mg/dL [facility] Creatinine 0.98 0.80 - 1.50 mg/dL [facility] Sodium 136 135 - 145 mmol/L [facility] Potassium 4.5 3.5 - 5.0 mmol/L [facility] Comment: Please note: ??Patients with WBC >100,000 may have falsely elevated Potassium levels. ??For accurate Potassium quantification in these patients send serum separator tube (gold top) for subsequent determinations. ??Contact the Clinical Chemistry Laboratory if there are any questions. Chloride 101 98 - 107 mmol/L [facility] Carbon Dioxide 23 22 - 31 mmol/L [facility] Anion Gap 12 5 - 15 mmol/L [facility] Calcium 8.9 8.5 - 10.5 mg/dL [facility] Est Glomerular Filtration Rate 96 >=60 mL/min/1. 73 m?? [facility] Comment: The eGFR was calculated using the CKD-EPI equation. As with all creatinine based estimates of kidney function, eGFR values calculated with the CKD-EPI equation are not accurate in patients with acute kidney failure, extremes of body mass or the acutely ill. [email or web address] eGFR 111 >=60 mL/min/1. 73 m?? [facility] Comment: The eGFR was calculated using the CKD-EPI equation. As with all creatinine based estimates of kidney function, eGFR values calculated with the CKD-EPI equation are not accurate in patients with acute kidney failure, extremes of body mass or the acutely ill. [email or web address] Blood specimen (specimen) 10/12/2018 2:32 PM EDT 10/12/2018 2:51 PM EDT Narrative Resulting Agency Comment Spec In Lab Camron Patton II, MD CHEMISTRY ORDER [place] [address] * EKG 12 Lead (10/12/2018 11:06 AM EDT) Ventricular rate 84 BPM MUSE SYSTEM Atrial Rate 84 BPM MUSE SYSTEM P-R Interval 172 ms MUSE SYSTEM QRS Duration 90 ms MUSE SYSTEM Q-T Interval 356 ms MUSE SYSTEM QTC Calculated (Bezet) 420 ms MUSE SYSTEM Calculated P [place] 46 degrees MUSE SYSTEM Calculated R [place] -4 degrees MUSE SYSTEM Calculated T [place] 28 degrees MUSE SYSTEM INTERPRETATION Normal sinus rhythm Inferior infarct , age undetermined Abnormal ECG No previous ECGs available Confirmed by MD SARAH, STEVEN ([id number]) on 10/16/2018 11:32:05 AM MUSE SYSTEM 10/12/2018 11:0 6 AM EDT 10/16/2018 11:32 AM EDT Camron Patton II, MD ECG ORDERABLES MUSE SYSTEM * CARDIAC CATHETERIZATION (10/12/2018 10:00 AM EDT) Anatomical Region Laterality Modality Other Narrative 10/12/2018 11:19 AM EDT ?[facility] ? Cardiac Catheterization/Intervention Report ? Patient Name: Hayden Russo Angela ? Procedure Date: 10/12/2018 ? A #: [id number] ? Primary Physician: Solvang, Camron W ? Case #: [id number] ? File Name: [id number] ? Catheterization Order Number: [id number] ? [facility] ? Final Report [place], [place] ? Patient Name: ? Hayden M. Brill ? ID#: ?[id number] ? : ?1975 ? Procedure Date: ? October 12, 2018 ?Case #: ? [id number] ? Room: ? 1 ? Case Physician: ? Camron Patotn M.D. ?Start: ?08:21 ?Fellow: ? Vahe Hoffman M.D. ? Admission: ??10/12/2018 ? Discharge: ??10/14/2018 ? Referring ? Bandar Espinal M.D. ? Physicians: ?Minesh Edwards M.D. ? Procedures: ?* Coronary Angiography ?* Left Heart Catheterization ?* Coronary Stent Insertion ?* Access Site Angiography ? Pre Case Status: ?These procedures were performed on an emergent basis. ? History ?Hayden Russo is a 42 year old man. He has hypertension. The patient's ?smoking status is Former. He has hypercholesterolemia managed with lipid ?therapy. The patient also has insulin dependent diabetes mellitus. Prior ?to the initiation of this procedure, the patient was designated as ASA ?Class IV. The CSHA clinical frailty scale is 3: Managing Well. ? Diagnostic Tests: ?Electrocardiography: ? EKG was assessed by ECG. EKG was Abnormal. EKG showed ST Deviation ? >= 0.5 mm and dynamic EKG changes. ?Medications Prior to Procedure: ? Statin and Angiotensin Converting Enzyme Inhibitor. ? Indications for Diagnostic Cath: ?The priority of the diagnostic procedure was Emergent. The indication for ?the laboratory operations coordinator visit is ACS less than or equal to 24 hrs. Chest pain ?symptom assessment was: Typical Angina. ? Technique: ?A 6 SLFr sheath was inserted in the right radial artery utilizing the ?Seldinger technique. A 6Fr sheath was inserted in the right femoral ?artery utilizing the Seldinger technique. The left coronary artery was ?injected utilizing a 6Fr JL 3.5 catheter. A 6Fr JR 4 catheter was used to ?inject the right coronary artery. Coronary stent insertion was performed ?and the equipment utilized will be described in the intervention summary ?section. 8,000 units of heparin were administered. A total of 300cc of ?Omnipaque were opened, 205cc of Omnipaque were administered and 95cc of ?Omnipaque were wasted. Radiation: Fluoro time was 18.0 minutes, dose area ?product was 239.23 Gy/cm2 and air kerma was 3,418 mGY. See the case log ?for additional details. ?The patient received the following medications prior to and during the ?procedure: ? Unfractionated Heparin and Clopidogrel. ? Hemodynamics: ?Left Heart Pressures ? Resting: ? Syst Diast ? EDP ?a ?v ? m ?Ao 116 ?? 66 ?89 ?LV 118 ? 20 ? Coronary Angiography: ?Dominance: Right ?Left Main ? The left main was normal, free of disease. ?Left Anterior Descending ? There was mild diffuse (<=25% stenosis) disease of the entire vessel ? segment of the left anterior descending artery (LAD). ??The mid ? segment of the LAD had a single discrete 45% stenosis. ??There also ? was a 60% single discrete stenosis of the distal segment of the LAD. ?Left Circumflex ? There was mild diffuse (<=25% stenosis) disease of the entire vessel ? segment of the left circumflex artery (LCX). ??The mid segment of the ? LCX had a single discrete 90% stenosis. ? There was a 60% single discrete stenosis of the ostial segment of ? the first obtuse marginal branch (OM1) of the LCX. ??The distal ? vessel was moderate in size. ?Right Coronary Artery ? There was mild diffuse (<=25% stenosis) disease of the entire vessel ? segment of the right coronary artery (RCA). ??The distal segment of ? the RCA had a single discrete 95% stenosis. ? Indication for Intervention: ?Coronary intervention was indicated for primary therapy for an acute ?myocardial infarction. The priority for the procedure was Emergent. The ?NCDR indication for the procedure was STEMI (after successful lytics). ?STEMI onset was 10/11/2018 at 11:30 AM. Thrombolytics were administered ?on 10/12/2018 at 4:34 AM. ? Intervention Summary: ?Left Circumflex Artery ? Mid 90% ? Stent insertion was performed on the 90% stenosis in the mid ? segment of the LCX. This was a de susy lesion. According to ? the ACC/AHA classification system, this lesion was a type B1 ? moderate risk lesion. Primary prevention of restenosis was the ? indication for stent insertion. This was the culprit lesion. A ? guidewire was placed across this lesion. Vessel flow pre ? intervention was FAUZIA 3. Lesion length was 20mm. The lesion ? involves a bifurcation with the OM1. This bifurcation lesion ? was treated with a single stent, side branch jailed and not ? treated technique. ? Stent insertion was accomplished through a 6 Fr. EBU 3.0 ? guide. ??The lesion was predilated with a 2.00mm APEX 12 MM ? balloon with a maximum inflation pressure of 12 atmospheres. ? A premounted 2.50 x 26 mm Resolute KAE (MARIALUISA) was deployed ? with a maximum inflation pressure of 12 atmospheres. ? Following stent deployment, the lesion was dilated using a ? 2.50mm NC EMERGE 20 MM balloon with a maximum inflation ? pressure of 16 atmospheres. ? The final outcome was defined as successful. A coronary ? arteriolar vasodilator was administered as part of the ? intervention on this lesion. There was no residual stenosis ? following this intervention. The final FAUZIA flow was 3. ?Right Coronary Artery ? Distal 95% ? Stent insertion was performed on the 95% stenosis in the ? distal segment of the RCA. This was a de susy lesion. This ? lesion was designated a type B1 moderate risk lesion based on ? ACC/AHA classification system. Primary prevention of ? restenosis was the indication for stent insertion. This was ? the culprit lesion. A guidewire was placed across this lesion. ? Vessel flow pre intervention was FAUZIA 3. Lesion length was ? 15mm. ? Stent insertion was accomplished through a 6 Fr. JR 4 guide. ? The lesion was predilated with a 2.00mm APEX 12 MM balloon ? with a maximum inflation pressure of 12 atmospheres. ??A ? premounted 2.25 x 22 mm Resolute KAE (MARIALUISA) was deployed with ? a maximum inflation pressure of 10 atmospheres. ??Following ? stent deployment, the lesion was dilated using a 2.50mm NC ? EUPHORA 20 MM balloon with a maximum inflation pressure of 15 ? atmospheres. ? The final outcome was defined as successful. There was no ? residual stenosis following this intervention. The final FAUZIA ? flow was 3. ? Vascular Access: ?Vascular Access Angiogram: ? A selective angiogram at the right femoral artery revealed no ? significant obstructive disease. A selective angiogram at the access ? site also revealed Inferior epigastric artery low. ?Vascular Access Management: ? Manual Compression of the right femoral artery access site was ? performed. ? Mechanical Compression of the right radial artery access site was ? performed. ? Dual Antiplatelet (DAPT) Recommendations: ?Drug eluting stent (MARIALUISA) inserted. ?P2Y12 Loading dose administered prior to arrival in the laboratory operations coordinator. ?Recommend continuing clopidogrel 75 mg PO daily for 12 months. ??Recommend ?continuing aspirin 81 mg unless intolerant. ?The DAPT score is 2. ??The DAPT score calculates net clinical benefit of ?prolonged dual antiplatelet therapy following percutaneous coronary ?intervention. A DAPT Score of equal or greater than 2 suggests an ?increased risk of late stent thrombosis and MACCE. If the DAPT score is ?equal or greater than 2 and the patient tolerates the recommended ?duration of DAPT without bleeding or side effects, consider extending the ?DAPT to 30 months post procedure. ? Conclusions: ?* Three vessel coronary artery disease (LAD, LCX and RCA) ?* Elevated left ventricular end diastolic pressure ?* Successful stent insertion of the distal RCA lesion ?* Successful stent insertion of the mid LCX lesion ?* Recommend continuing clopidogrel 75 mg PO daily for 12 months (see DAPT ?Recommendations above for more information.) ? Complications/Events: ?The patient had no complications during these procedures. ?The attending physician was present for the entire procedure. ?Dr. Camron Patton M.D. was present during the moderate sedation ?intraservice time as documented by the sedation nurse. ??Case time = 01:30. ?Dr. Camron aPtton M.D. performed the coronary angiography, stent ?insertion-coronary, left heart catheterization and access site angiography. ? Camron Patton M.D. ? Electronically Signed by: Camron Patton M.D. ? Report Finalized: 10/12/2018 ??10:18 ? Report Last Ammended: 07/03/2023 ??13:13 ? Procedure Note Camron Patton II, MD - 07/04/2023 [facility] Cardiac Catheterization/Intervention Report Patient Name: Hayden Russo Procedure Date: 10/12/2018 A #: [id number] Primary Physician: Camron Patton Case #: [id number] File Name: [id number] Catheterization Order Number: [id number] [facility] FinalReport [place], [place] Patient Name: Hayden Russo ID#:[id number] :1975 Procedure Date: October 12, 2018 Case #: [id number] Room: 1 Case Physician: Camron Patton M.D. Start: 08:21 Fellow: Vahe Hoffman M.D. Admission:10/12/2018 Discharge:10/14/2018 Referring Bandar Espinal M.D. Physicians: Minesh Edwards M.D. Procedures: * Coronary Angiography * Left Heart Catheterization * Coronary Stent Insertion * Access Site Angiography Pre Case Status: These procedures were performed on an emergent basis. History Hayden Russo is a 42 year old man. He has hypertension. Thepatient's smoking status is Former. He has hypercholesterolemia managed withlipid therapy. The patient also has insulin dependent diabetes mellitus.Prior to the initiation of this procedure, the patient was designated asASA Class IV. The [facility] clinical frailty scale is 3: Managing Well. Diagnostic Tests: Electrocardiography: EKG was assessed by ECG. EKG was Abnormal. EKG showed STDeviation >= 0.5 mm and dynamic EKG changes. Medications Prior to Procedure: Statin and Angiotensin Converting Enzyme Inhibitor. Indications for Diagnostic Cath: The priority of the diagnostic procedure was Emergent. Theindication for the laboratory operations coordinator visit is ACS less than or equal to 24 hrs. Chest pain symptom assessment was: Typical Angina. Technique: A 6 SLFr sheath was inserted in the right radial artery utilizingthe Seldinger technique. A 6Fr sheath was inserted in the right femoral artery utilizing the Seldinger technique. The left coronary arterywas injected utilizing a 6Fr JL 3.5 catheter. A 6Fr JR 4 catheter wasused to inject the right coronary artery. Coronary stent insertion wasperformed and the equipment utilized will be described in the interventionsummary section. 8,000 units of heparin were administered. A total of 300ccof Omnipaque were opened, 205cc of Omnipaque were administered and 95ccof Omnipaque were wasted. Radiation: Fluoro time was 18.0 minutes, dosearea product was 239.23 Gy/cm2 and air kerma was 3,418 mGY. See the caselog for additional details. The patient received the following medications prior to and duringthe procedure: Unfractionated Heparin and Clopidogrel. Hemodynamics: Left Heart Pressures Resting: Syst Diast EDP a v m Ao 116 66 89 LV 118 20 Coronary Angiography: Dominance: Right Left Main The left main was normal, free of disease. Left Anterior Descending There was mild diffuse (<=25% stenosis) disease of the entirevessel segment of the left anterior descending artery (LAD). The mid segment of the LAD had a single discrete 45% stenosis. Therealso was a 60% single discrete stenosis of the distal segment of theLAD. Left Circumflex There was mild diffuse (<=25% stenosis) disease of the entirevessel segment of the left circumflex artery (LCX). The mid segmentof the LCX had a single discrete 90% stenosis. There was a 60% single discrete stenosis of the ostial segmentof the first obtuse marginal branch (OM1) of the LCX. The distal vessel was moderate in size. Right Coronary Artery There was mild diffuse (<=25% stenosis) disease of the entirevessel segment of the right coronary artery (RCA). The distal segmentof the RCA had a single discrete 95% stenosis. Indication for Intervention: Coronary intervention was indicated for primary therapy for an acute myocardial infarction. The priority for the procedure was Emergent.The [facility] indication for the procedure was STEMI (after successfullytics). STEMI onset was 10/11/2018 at 11:30 AM. Thrombolytics wereadministered on 10/12/2018 at 4:34 AM. Intervention Summary: Left Circumflex Artery Mid 90% Stent insertion was performed on the 90% stenosis in themid segment of the LCX. This was a de susy lesion. Accordingto the ACC/AHA classification system, this lesion was a typeB1 moderate risk lesion. Primary prevention of restenosiswas the indication for stent insertion. This was the culpritlesion. A guidewire was placed across this lesion. Vessel flow pre intervention was FAUZIA 3. Lesion length was 20mm. Thelesion involves a bifurcation with the OM1. This bifurcationlesion was treated with a single stent, side branch jailed andnot treated technique. Stent insertion was accomplished through a 6 Fr. EBU 3.0 guide. The lesion was predilated with a 2.00mm APEX 12MM balloon with a maximum inflation pressure of 12atmospheres. A premounted 2.50 x 26 mm Resolute KAE (MARIALUISA) wasdeployed with a maximum inflation pressure of 12 atmospheres. Following stent deployment, the lesion was dilated usinga 2.50mm NC EMERGE 20 MM balloon with a maximum inflation pressure of 16 atmospheres. The final outcome was defined as successful. A coronary arteriolar vasodilator was administered as part of the intervention on this lesion. There was no residualstenosis following this intervention. The final FAUZIA flow was 3. Right Coronary Artery Distal 95% Stent insertion was performed on the 95% stenosis in the distal segment of the RCA. This was a de susy lesion.This lesion was designated a type B1 moderate risk lesionbased on ACC/AHA classification system. Primary prevention of restenosis was the indication for stent insertion. Thiswas the culprit lesion. A guidewire was placed across thislesion. Vessel flow pre intervention was FAUZIA 3. Lesion lengthwas 15mm. Stent insertion was accomplished through a 6 Fr. JR 4guide. The lesion was predilated with a 2.00mm APEX 12 MMballoon with a maximum inflation pressure of 12 atmospheres. A premounted 2.25 x 22 mm Resolute KAE (MARIALUISA) was deployedwith a maximum inflation pressure of 10 atmospheres.Following stent deployment, the lesion was dilated using a 2.50mmNC EUPHORA 20 MM balloon with a maximum inflation pressureof 15 atmospheres. The final outcome was defined as successful. There was no residual stenosis following this intervention. The finalTIMI flow was 3. Vascular Access: Vascular Access Angiogram: A selective angiogram at the right femoral artery revealed no significant obstructive disease. A selective angiogram at theaccess site also revealed Inferior epigastric artery low. Vascular Access Management: Manual Compression of the right femoral artery access site was performed. Mechanical Compression of the right radial artery access sitewas performed. Dual Antiplatelet (DAPT) Recommendations: Drug eluting stent (MARIALUISA) inserted. P2Y12 Loading dose administered prior to arrival in the laboratory operations coordinator. Recommend continuing clopidogrel 75 mg PO daily for 12 months.Recommend continuing aspirin 81 mg unless intolerant. The DAPT score is 2. The DAPT score calculates net clinical benefitof prolonged dual antiplatelet therapy following percutaneous coronary intervention. A DAPT Score of equal or greater than 2 suggests an increased risk of late stent thrombosis and MACCE. If the DAPT scoreis equal or greater than 2 and the patient tolerates the recommended duration of DAPT without bleeding or side effects, considerextending the DAPT to 30 months post procedure. Conclusions: * Three vessel coronary artery disease (LAD, LCX and RCA) * Elevated left ventricular end diastolic pressure * Successful stent insertion of the distal RCA lesion * Successful stent insertion of the mid LCX lesion * Recommend continuing clopidogrel 75 mg PO daily for 12 months (seeDAPT Recommendations above for more information.) Complications/Events: The patient had no complications during these procedures. The attending physician was present for the entire procedure. Dr. Camron Patton M.D. was present during the moderate sedation intraservice time as documented by the sedation nurse. Case time =01:30. Dr. Camron Patton M.D. performed the coronary angiography, stent insertion-coronary, left heart catheterization and access siteangiography. Camron Patton M.D. Electronically Signed by: Camron Patton M.D. Report Finalized: 10/12/2018 10:18 Report Last Ammended: 07/03/2023 13:13 Camron Patton II, MD CARDIAC CATH OR DERABLES documented in this encounter Visit Diagnoses Diagnosis Acute ST elevation myocardial infarction (STEMI) of inferior wall- Primary ST elevation myocardial infarction (STEMI) of inferior wall Acute myocardial infarction of other inferior wall, episode of care unspecified Acute ST elevation myocardial infarction (STEMI) of inferior wall documented in this encounter Admitting Diagnoses Diagnosis Acute ST elevation myocardial infarction (STEMI) of inferior wall documented in this encounter Administered Medications Inactive Administered Medications - up to 3 most recent administrations Medication Order MAR Action Action Date Dose Rate Site acetaminophen (TYLENOL) tablet 650 mg 650 mg, Oral, EVERY 6 HOURS PRN, Starting on Mon10/12/18 at 1510, Until Mon10/14/18 at 1448, Headaches, Maximum dose of acetaminophen is 4000 mg from all sources in 24 hours., Routine Given 10/13/2018 11:10 AM EDT 650 mg Given 10/12/2018 6:01 PM EDT 650 mg aspirin chewable tablet 81 mg 81 mg, Oral, DAILY, First dose on Mon10/12/18 at 1500, Until Discontinued, Routine Given 10/14/2018 8:26 AM EDT 81 mg Given 10/13/2018 8:34 AM EDT 81 mg Given 10/12/2018 3:01 PM EDT 81 mg atorvastatin (LIPITOR) tablet 80 mg 80 mg, Oral, EVERY EVENING, First dose on Mon10/12/18 at 1700, Until Discontinued, Routine Given 10/13/2018 4:24 PM EDT 80 mg Given 10/12/2018 4:22 PM EDT 80 mg clopidogrel (PLAVIX) tablet 75 mg 75 mg, Oral, DAILY, First dose on Mon10/12/18 at 1500, Until Discontinued, Routine Given 10/14/2018 8:26 AM EDT 75 mg Given 10/13/2018 8:34 AM EDT 75 mg Given 10/12/2018 3:01 PM EDT 75 mg dextrose 50% intravenous solution 25-50 mL 25-50 mL (12.5-25 g), Intravenous, EVERY 1 HOUR PRN, Starting on 10/13/18 at 0929, Until 10/14/18 at 1448, Low blood sugar, For BG 50-70 mg/dL: Oral treatment preferred:?? If able to drink, give 120 mL Juice or Regular (not diet) soda OR If NPO, give 15 gram glucose 40% oral gel massaged into buccal mucosa OR if unconscious or uncooperative, give 12.5 gram (25 mL) Dextrose 50% IV OR, if no IV access, give 1 mg Glucagon IM. For BG less than 50 mg/dL: Oral treatment preferred:?? If able to drink, give 240 mL Juice or Regular (not diet) soda OR If NPO, give 30 gram glucose 40% oral gel massaged in buccal mucosa OR if unconscious or uncooperative, give 25 gram (50 mL) Dextrose 50% IV OR, if no IV access, give 1 mg Glucagon IM. Recheck BG in 30 minutes. May repeat juice, gel, dextrose or glucagon once per episode. To avoid extravasation, push Dextrose 50% SLOWLY (3 mL over 1 minute) in a patent, running IV, preferably a central line. For persistent hypoglycemia, consider longer-acting treatment for the duration of the active insulin., Routine fentaNYL (PF) 50mcg/mL injection 25 mcg, Intravenous, Administer over 4 Hours, EVERY 15 MIN PRN, Starting on Mon10/12/18 at 1046, Until Mon10/12/18 at 1326, Pain, For sheath removal, May repeat once, while in Cath Recovery Unit, Cath (Recovery-Hospital Unit), Routine Given 10/12/2018 11:38 AM EDT 25 mcg Given 10/12/2018 11:28 AM EDT 25 mcg R ight Arm glucagon (human recombinant) injection SolR 1 mg 1 mg, Intramuscular, EVERY 1 HOUR PRN, Starting on 10/13/18 at 0929, Until 10/14/18 at 1448, Low blood sugar, For BG 50-70 mg/dL: Oral treatment preferred:?? If able to drink, give 120 mL Juice or Regular (not diet) soda OR If NPO, give 15 gram glucose 40% oral gel massaged into buccal mucosa OR if unconscious or uncooperative, give 12.5 gram (25 mL) Dextrose 50% IV OR, if no IV access, give 1 mg Glucagon IM. For BG less than 50 mg/dL: Oral treatment preferred:?? If able to drink, give 240 mL Juice or Regular (not diet) soda OR If NPO, give 30 gram glucose 40% oral gel massaged in buccal mucosa OR if unconscious or uncooperative, give 25 gram (50 mL) Dextrose 50% IV OR, if no IV access, give 1 mg Glucagon IM. Recheck BG in 30 minutes. May repeat juice, gel, dextrose or glucagon once per episode. To avoid extravasation, push Dextrose 50% SLOWLY (3 mL over 1 minute) in a patent, running IV, preferably a central line. For persistent hypoglycemia, consider longer-acting treatment for the duration of the active insulin., Routine glucose (GLUTOSE) 40% oral gel 15-30 g, Buccal, EVERY 30 MIN PRN, Starting on 10/13/18 at 0929, Until 10/14/18 at 1448, Low blood sugar, For BG 50-70 mg/dL: Oral treatment preferred:?? If able to drink, give 120 mL Juice or Regular (not diet) soda OR If NPO, give 15 gram glucose 40% oral gel massaged into buccal mucosa OR if unconscious or uncooperative, give 12.5 gram (25 mL) Dextrose 50% IV OR, if no IV access, give 1 mg Glucagon IM. For BG less than 50 mg/dL: Oral treatment preferred:?? If able to drink, give 240 mL Juice or Regular (not diet) soda OR If NPO, give 30 gram glucose 40% oral gel massaged in buccal mucosa OR if unconscious or uncooperative, give 25 gram (50 mL) Dextrose 50% IV OR, if no IV access, give 1 mg Glucagon IM. Recheck BG in 30 minutes. May repeat juice, gel, dextrose or glucagon once per episode. To avoid extravasation, push Dextrose 50% SLOWLY (3 mL over 1 minute) in a patent, running IV, preferably a central line. For persistent hypoglycemia, consider longer-acting treatment for the duration of the active insulin. 1 tube contains 15 grams of glucose (net weight of tube = 37.5 grams., Routine insulin glargine VIAL injection 50 Units 50 Units, Subcutaneous, EVERY 24 HOURS, First dose on Mon10/13/18 at 1000, Until Discontinued, Routine Given 10/14/2018 10:39 AM EDT 50 Units Given 10/13/2018 10:54 AM EDT 50 Units insulin lispro (HumaLOG) VIAL injection 0-10 Units 0-10 Units, Subcutaneous, 3 TIMES DAILY WITH MEALS, First dose on Mon10/13/18 at 1200, Until Discontinued, [employer] Give 1 unit for every 10 grams carbohydrate. Hold if not eating, Routine Given 10/14/2018 12:20 PM ED T 6 Units Given 10/14/2018 8:26 AM EDT 3 Units Given 10/13/2018 5:45 PM EDT 7 Units insulin lispro (HumaLOG) VIAL injection 0-6 Units 0-6 Units, Subcutaneous, 3 TIMES DAILY WITH MEALS, First dose on Mon10/12/18 at 1700, Until Discontinued, ME[employer] ASS[employer] Give 1 unit for every 12 grams carbohydrate. Hold if not eating, Routine Given 10/12/2018 6:04 PM EDT 6 Units insulin lispro (HumaLOG) VIAL injection 2-8 Units 2-8 Units, Subcutaneous, 3 TIMES DAILY BEFORE MEALS, First dose on Mon10/12/18 at 1630, Until Discontinued, CORRECTION BOLUS Moderate BG 140 - 160 Give 2 units BG 161 - 200 Give 4 units BG 201 - 240 Give 6 units BG greater than 240, give 8 units and recheck BG in 2 hours.If BG less than 240 after two hours, give no insulin and resume prior schedule. If BG remains greater than 240, repeat 8 units (no more than three times) & call for new basal insulin orders. DO NOT hold if NPO, unless specifically told to do so., Routine Given 10/12/2018 6:23 PM EDT 8 Units Given 10/12/2018 4:23 PM EDT 8 Units insulin lispro (HumaLOG) VIAL injection 3-12 Units 3-12 Units, Subcutaneous, EVERY 4 HOURS SCHEDULED, First dose on Mon10/12/18 at 2045, Until Discontinued, CORRECTION BOLUS Resistant to insulin obese patient or TDD (total daily dose of all insulin needed to achieve glycemic control) greater than 60 units BG 140 - 160 Give 3 units BG 161 - 200 Give 6 units BG 201 - 240 Give 9 units BG greater than 240, give 12 units and recheck BG in 2 hours. If less than 240 after two hours, give no insulin and resume prior schedule. If BG remains greater than 240, repeat 12 units (no more than three times) & call for new basal insulin orders. DO NOT hold if NPO, unless specifically told to do so., Routine Given 10/13/2018 8:33 AM EDT 6 Units Given 10/13/2018 4:24 AM EDT 6 Units Given 10/13/2018 12:49 AM EDT 6 Units insulin lispro (HumaLOG) VIAL injection 3-12 Units 3-12 Units, Subcutaneous, EVERY 4 HOURS SCHEDULED, First dose on Mon10/13/18 at 1200, Until Discontinued, CORRECTION BOLUS Resistant to insulin obese patient or TDD (total daily dose of all insulin needed to achieve glycemic control) greater than 60 units BG 140 - 160 Give 3 units BG 161 - 200 Give 6 units BG 201 - 240 Give 9 units BG greater than 240, give 12 units and recheck BG in 2 hours. If less than 240 after two hours, give no insulin and resume prior schedule. If BG remains greater than 240, repeat 12 units (no more than three times) & call for new basal insulin orders. DO NOT hold if NPO, unless specifically told to do so., Routine Given 10/14/2018 12:20 PM EDT 12 Units Given 10/14/2018 8:26 AM EDT 3 Units Given 10/14/2018 4:27 AM EDT 3 Units lisinopril (PRINIVIL;ZESTRIL) tablet 10 mg 10 mg, Oral, DAILY, First dose (after last modification) on Mon10/13/18 at 0900, Until Discontinued, Routine Given 10/14/2018 8:26 AM EDT 10 mg Given 10/13/2018 8:34 AM EDT 10 mg metoprolol (LOPRESSOR) tablet 12.5 mg 12.5 mg, Oral, EVERY 6 HOURS SCHEDULED, First dose on Mon10/12/18 at 1445, Until Discontinued, Routine Given 10/13/2018 5:50 AM EDT 12.5 mg Given 10/13/2018 12:46 AM EDT 12.5 mg Given 10/12/2018 5:57 PM EDT 12.5 mg metoprolol succinate (TOPROL-XL) XL tablet 100 mg 100 mg, Oral, DAILY, First dose on Mon10/14/18 at 0900, Until Discontinued, DO NOT CRUSH OR OPEN, Routine Given 10/14/2018 8:26 AM EDT 100 mg metoprolol tartrate (LOPRESSOR) tablet 25 mg 25 mg, Oral, EVERY 6 HOURS SCHEDULED, 3 doses, First dose (after last modification) on 10/13/18 at 1200, Last dose on Mon10/14/18 at 0000, Routine Given 10/14/2018 12:17 AM EDT 25 mg Given 10/13/2018 5:49 PM EDT 25 mg Given 10/13/2018 11:12 AM EDT 25 mg midazolam (PF) (VERSED) injection 1 mg 1 mg, Intravenous, Administer over 4 Hours, EVERY 30 MIN PRN, Starting on Mon10/12/18 at 1046, Until Mon10/12/18 at 1326, Sleep, For sheath removal, May repeat once while in Cath Recovery Unit., Cath (Recovery-Hospital Unit), Routine Given 10/12/2018 11:40 AM EDT 1 mg Given 10/12/2018 11:29 AM EDT 1 mg sodium chloride 0.9 % (flush) flush 5 mL 5 mL, Intravenous, 2 TIMES DAILY, First dose on Mon10/12/18 at 1430, Until Discontinued, Routine Given 10/14/2018 9:00 AM EDT 5 mLs Given 10/13/2018 8:16 PM EDT 5 mLs Given 10/13/2018 9:00 AM EDT 5 mLs documented in this encounter Active and Recently Administered Medications Times are shown in EDT. Scheduled Medication Order 10/12/2018 10/13/2018 10/14/2018 aspirin chewable tablet 81 mg 81 mg, Oral, DAILY, First dose on Mon10/12/18 at 1500, Until Discontinued, Routine 1501 (Given - Provider: Brea Beckford RN) 0834 (Given - Provider: Brea Beckford RN) 0826 (Given - Provider: Brea Beckford, DELL) atorvastatin (LIPITOR) tablet 80 mg 80 mg, Oral, EVERY EVENING, First dose on Mon10/12/18 at 1700, Until Discontinued, Routine 1622 (Given - Provider: Camron Vallejo RN) 1624 (Given - Provider: Brea Beckford RN) clopidogrel (PLAVIX) tablet 75 mg 75 mg, Oral, DAILY, First dose on Mon10/12/18 at 1500, Until Discontinued, Routine 1501 (Given - Provider: Brea Beckford RN) 0834 (Given - Provider: Brea Beckford, DELL) 0826 (Given - Provider: Brea Beckford RN) insulin glargine VIAL injection 50 Units 50 Units, Subcutaneous, EVERY 24 HOURS, First dose on Mon10/13/18 at 1000, Until Discontinued, Routine 1054 (Given - Provider: Brea Beckford RN) 1039 (Given - Provider: Brea Beckford RN) insulin lispro (HumaLOG) VIAL injection 0-10 Units 0-10 Units, Subcutaneous, 3 TIMES DAILY WITH MEALS, First dose on Mon10/13/18 at 1200, Until Discontinued, ME[employer] Give 1 unit for every 10 grams carbohydrate. Hold if not eating, Routine 1259 (Given - Provider: Brea Beckford RN)1745 (Given - Provider: Brea Beckford, DELL) 0826 (Given - Provider: Brea Beckford, DELL)1220 (Given - Provider: Brea Beckford RN) insulin lispro (HumaLOG) VIAL injection 0-6 Units (CANCELED) 0-6 Units, Subcutaneous, 3 TIMES DAILY WITH MEALS, First dose on Mon10/12/18 at 1700, Until Discontinued, ME[employer] ASS[employer]ATED Give 1 unit for every 12 grams carbohydrate. Hold if not eating, Routine 1804 (Given - Provider: Brea Beckford RN) insulin lispro (HumaLOG) VIAL injection 2-8 Units (CANCELED)(Linked Group 1) 2-8 Units, Subcutaneous, 3 TIMES DAILY BEFORE MEALS, First dose on Mon10/12/18 at 1630, Until Discontinued, CORRECTION BOLUS Moderate BG 140 - 160 Give 2 units BG 161 - 200 Give 4 units BG 201 - 240 Give 6 units BG greater than 240, give 8 units and recheck BG in 2 hours.If BG less than 240 after two hours, give no insulin and resume prior schedule. If BG remains greater than 240, repeat 8 units (no more than three times) & call for new basal insulin orders. DO NOT hold if NPO, unless specifically told to do so., Routine 1623 (Given - Provider: Camron Vallejo RN)1823 (Given - Provider: Brea Beckford, DELL) insulin lispro (HumaLOG) VIAL injection 3-12 Units (CANCELED)(Linked Group 2) 3-12 Units, Subcutaneous, EVERY 4 HOURS SCHEDULED, First dose on Mon10/12/18 at 2045, Until Discontinued, CORRECTION BOLUS Resistant to insulin obese patient or TDD (total daily dose of all insulin needed to achieve glycemic control) greater than 60 units BG 140 - 160 Give 3 units BG 161 - 200 Give 6 units BG 201 - 240 Give 9 units BG greater than 240, give 12 units and recheck BG in 2 hours. If less than 240 after two hours, give no insulin and resume prior schedule. If BG remains greater than 240, repeat 12 units (no more than three times) & call for new basal insulin orders. DO NOT hold if NPO, unless specifically told to do so., Routine 2057 (Given - Provider: Ghazal Lopez, DELL)2244 (Given - Provider: Ghazal Lopez, DELL - Comment: bg [id number]) 0049 (Given - Provider: Ghazal Lopez RN)0424 (Given - Provider: Ghazal Lopez, DELL)0833 (Given - Provider: Brea Beckford, RN) insulin lispro (HumaLOG) VIAL injection 3-12 Units(Linked Group 3) 3-12 Units, Subcutaneous, EVERY 4 HOURS SCHEDULED, First dose on Mon10/13/18 at 1200, Until Discontinued, CORRECTION BOLUS Resistant to insulin obese patient or TDD (total daily dose of all insulin needed to achieve glycemic control) greater than 60 units BG 140 - 160 Give 3 units BG 161 - 200 Give 6 units BG 201 - 240 Give 9 units BG greater than 240, give 12 units and recheck BG in 2 hours. If less than 240 after two hours, give no insulin and resume prior schedule. If BG remains greater than 240, repeat 12 units (no more than three times) & call for new basal insulin orders. DO NOT hold if NPO, unless specifically told to do so., Routine 1158 (Given - Provider: Brea Beckford RN)1411 (Given - Provider: Brea Beckford RN)1624 (Given - Provider: Brea Beckford RN)2016 (Given - Provider: Ghazal Lopez RN)2218 (Given - Provider: Ghazal Lopez RN - Comment: bg [id number]) 0018 (Given - Provider: Ghazal Lopez RN)0427 (Given - Provider: Ghazal Lopez RN)0826 (Given - Provider: Brea Beckford RN)1220 (Given - Provider: Brea Beckford RN) lisinopril (PRINIVIL;ZESTRIL) tablet 10 mg 10 mg, Oral, DAILY, First dose (after last modification) on 10/13/18 at 0900, Until Discontinued, Routine 0834 (Given - Provider: Brea Beckford RN) 0826 (Given - Provider: Brea Beckford RN) metoprolol (LOPRESSOR) tablet 12.5 mg (CANCELED) 12.5 mg, Oral, EVERY 6 HOURS SCHEDULED, First dose on Mon10/12/18 at 1445, Until Discontinued, Routine 1501 (Given - Provider: Brea Beckford RN)1757 (Given - Provider: Brea Beckford RN) 0046 (Given - Provider: Ghazal Lopez RN)0550 (Given - Provider: Ghazal Lopez RN) metoprolol succinate (TOPROL-XL) XL tablet 100 mg 100 mg, Oral, DAILY, First dose on 10/14/18 at 0900, Until Discontinued, DO NOT CRUSH OR OPEN, Routine 0826 (Given - Provider: Brea Beckford RN) metoprolol tartrate (LOPRESSOR) tablet 25 mg (COMPLETED) 25 mg, Oral, EVERY 6 HOURS SCHEDULED, 3 doses, First dose (after last modification) on 10/13/18 at 1200, Last dose on 10/14/18 at 0000, Routine 1112 (Given - Provider: Brea Beckford RN)1749 (Given - Provider: Brea Beckford RN) 0017 (Given - Provider: Ghazal Lopez RN) sodium chloride 0.9 % (flush) flush 5 mL 5 mL, Intravenous, 2 TIMES DAILY, First dose on Mon10/12/18 at 1430, Until Discontinued, Routine 1430 (Given - Provider: Brea Beckford RN)2058 (Given - Provider: Ghazal Lopez, RN) 0900 (Given - Provider: Brea Beckford, RN)2015 (Given - Provider: Ghazal Lopez, RN) 0900 (Given - Provider: Brea Beckford, DELL) PRN Medication Order 10/12/2018 10/13/2018 10/14/2018 acetaminophen (TYLENOL) tablet 650 mg 650 mg, Oral, EVERY 6 HOURS PRN, Starting on 10/12/18 at 1510, Until 10/14/18 at 1448, Headaches, Maximum dose of acetaminophen is 4000 mg from all sources in 24 hours., Routine 1801 (Given - Provider: Brea Beckford RN) 1110 (Given - Provider: Brea Beckford RN) dextrose 50% intravenous solution 25-50 mL(Linked Group 4) 25-50 mL (12.5-25 g), Intravenous, EVERY 1 HOUR PRN, Starting on 10/13/18 at 0929, Until 10/14/18 at 1448, Low blood sugar, For BG 50-70 mg/dL: Oral treatment preferred:?? If able to drink, give 120 mL Juice or Regular (not diet) soda OR If NPO, give 15 gram glucose 40% oral gel massaged into buccal mucosa OR if unconscious or uncooperative, give 12.5 gram (25 mL) Dextrose 50% IV OR, if no IV access, give 1 mg Glucagon IM. For BG less than 50 mg/dL: Oral treatment preferred:?? If able to drink, give 240 mL Juice or Regular (not diet) soda OR If NPO, give 30 gram glucose 40% oral gel massaged in buccal mucosa OR if unconscious or uncooperative, give 25 gram (50 mL) Dextrose 50% IV OR, if no IV access, give 1 mg Glucagon IM. Recheck BG in 30 minutes. May repeat juice, gel, dextrose or glucagon once per episode. To avoid extravasation, push Dextrose 50% SLOWLY (3 mL over 1 minute) in a patent, running IV, preferably a central line. For persistent hypoglycemia, consider longer-acting treatment for the duration of the active insulin., Routine fentaNYL (PF) 50mcg/mL injection (CANCELED) 25 mcg, Intravenous, Administer over 4 Hours, EVERY 15 MIN PRN, Starting on Mon10/12/18 at 1046, Until Mon10/12/18 at 1326, Pain, For sheath removal, May repeat once, while in Cath Recovery Unit, Cath (Recovery-Hospital Unit), Routine 1128 (Given - Provider: Coleen Quinn RN - Comment: pre manual hold for sheath removal)1138 (Given - Provider: Coleen Quinn RN) fentaNYL 50 mcg/mL multi-dose injection (CANCELED) ONCE PRN, Starting on Mon10/12/18 at 0820, Until Mon10/12/18 at 0955, Intra-Operative (Intra-Procedure), Routine 0820 (Given - Provider: Minesh Koch)0832 (Given - Provider: Minesh Koch)0836 (Given - Provider: Lauri Gaviria) glucagon (human recombinant) injection SolR 1 mg(Linked Group 4) 1 mg, Intramuscular, EVERY 1 HOUR PRN, Starting on 10/13/18 at 0929, Until 10/14/18 at 1448, Low blood sugar, For BG 50-70 mg/dL: Oral treatment preferred:?? If able to drink, give 120 mL Juice or Regular (not diet) soda OR If NPO, give 15 gram glucose 40% oral gel massaged into buccal mucosa OR if unconscious or uncooperative, give 12.5 gram (25 mL) Dextrose 50% IV OR, if no IV access, give 1 mg Glucagon IM. For BG less than 50 mg/dL: Oral treatment preferred:?? If able to drink, give 240 mL Juice or Regular (not diet) soda OR If NPO, give 30 gram glucose 40% oral gel massaged in buccal mucosa OR if unconscious or uncooperative, give 25 gram (50 mL) Dextrose 50% IV OR, if no IV access, give 1 mg Glucagon IM. Recheck BG in 30 minutes. May repeat juice, gel, dextrose or glucagon once per episode. To avoid extravasation, push Dextrose 50% SLOWLY (3 mL over 1 minute) in a patent, running IV, preferably a central line. For persistent hypoglycemia, consider longer-acting treatment for the duration of the active insulin., Routine glucose (GLUTOSE) 40% oral gel(Linked Group 4) 15-30 g, Buccal, EVERY 30 MIN PRN, Starting on 10/13/18 at 0929, Until 10/14/18 at 1448, Low blood sugar, For BG 50-70 mg/dL: Oral treatment preferred:?? If able to drink, give 120 mL Juice or Regular (not diet) soda OR If NPO, give 15 gram glucose 40% oral gel massaged into buccal mucosa OR if unconscious or uncooperative, give 12.5 gram (25 mL) Dextrose 50% IV OR, if no IV access, give 1 mg Glucagon IM. For BG less than 50 mg/dL: Oral treatment preferred:?? If able to drink, give 240 mL Juice or Regular (not diet) soda OR If NPO, give 30 gram glucose 40% oral gel massaged in buccal mucosa OR if unconscious or uncooperative, give 25 gram (50 mL) Dextrose 50% IV OR, if no IV access, give 1 mg Glucagon IM. Recheck BG in 30 minutes. May repeat juice, gel, dextrose or glucagon once per episode. To avoid extravasation, push Dextrose 50% SLOWLY (3 mL over 1 minute) in a patent, running IV, preferably a central line. For persistent hypoglycemia, consider longer-acting treatment for the duration of the active insulin. 1 tube contains 15 grams of glucose (net weight of tube = 37.5 grams., Routine heparin (porcine) injection (CANCELED) ONCE PRN, Starting on Mon10/12/18 at 0825, Until Mon10/12/18 at 0955, Cath (Intra-Procedure), Routine 0825 (Given - Provider: Lauri Gaviria)0932 (Given - Provider: Lauri Gaviria) lidocaine (XYLOCAINE) 10 mg/mL (1 %) injection 3 mg 3 mg (0.3 mL), Subcutaneous, ONCE PRN, 1 dose, Starting on Mon10/12/18 at 1407, Until 10/14/18 at 1448, for discomfort with PIV insertion, Routine midazolam (PF) (VERSED) injection 1 mg (CANCELED) 1 mg, Intravenous, Administer over 4 Hours, EVERY 30 MIN PRN, Starting on Mon10/12/18 at 1046, Until Mon10/12/18 at 1326, Sleep, For sheath removal, May repeat once while in Cath Recovery Unit., Cath (Recovery-Hospital Unit), Routine 1129 (Given - Provider: Coleen Quinn RN - Comment: pre sheath removal with manual hold)1140 (Given - Provider: Coleen Quinn RN) midazolam (PF) (VERSED) multi-dose injection (CANCELED) ONCE PRN, Starting on Mon10/12/18 at 0820, Until Mon10/12/18 at 0955, Cath (Intra-Procedure), Routine 0820 (Given - Provider: Minesh Koch)0832 (Given - Provider: Lauri Gaviria)0836 (Given - Provider: Lauri Gaviria) nitroGLYcerin (NITROSTAT) SL tablet 0.4 mg 0.4 mg, Sublingual, EVERY 5 MIN PRN, Starting on Mon10/12/18 at 1407, Until Mon10/14/18 at 1448, Chest pain, May repeat every 5 minutes for a total of three doses. Notify provider if chest pain not relieved with nitroglycerin. Do not administer nitroglycerin if the patient has received or taken phosphodiesterase (PDE-5) inhibitors such as sildenafil, tadalafil or vardenafil within the last 24 to 72 hours., Routine nitroGLYcerin 100 mcg/mL intracoronary dilution (CANCELED) ONCE PRN, Starting on Mon10/12/18 at 0822, Until Mon10/12/18 at 0955, Cath (Intra-Procedure), Routine 0822 (Given - Provider: Vahe Hoffman)0924 (Given - Provider: Vahe Hoffman) sodium chloride 0.9 % (flush) flush 5-20 mL 5-20 mL, Intravenous, EVERY 1 MIN PRN, Starting on Mon10/12/18 at 1407, Until Mon10/14/18 at 1448, flush, Flush pertains to all indwelling lines. Flush per protocol found in the job aid using the link provided on this medication record., Routine verapamil (ISOPTIN) injection (CANCELED) ONCE PRN, Starting on Mon10/12/18 at 0822, Until Mon10/12/18 at 0955, Administer over 2 Minutes, Cath (Intra-Procedure) 0822 (Given - Provider: Vahe Hoffman) Linked Groups Order Group 1: POCT Fingerstick Glucose (CANCELED) Routine, 4 TIMES DAILY BEFORE MEALS & AT BEDTIME, First occurrence on Mon10/12/18 at 1700, Until Specified, Consider choosing FOUR TIMES A DAY BEFORE MEALS AND AT BEDTIME as frequency for: Patients who have a good hypoglycemia awareness: -Patients who are eating meals during the day and sleeping at night -Patient who are otherwise stable And insulin lispro (HumaLOG) VIAL injection 2-8 Units (CANCELED)Jump to med 2-8 Units, Subcutaneous, 3 TIMES DAILY BEFORE MEALS, First dose on Mon10/12/18 at 1630, Until Discontinued, CORRECTION BOLUS Moderate BG 140 - 160 Give 2 units BG 161 - 200 Give 4 units BG 201 - 240 Give 6 units BG greater than 240, give 8 units and recheck BG in 2 hours.If BG less than 240 after two hours, give no insulin and resume prior schedule. If BG remains greater than 240, repeat 8 units (no more than three times) & call for new basal insulin orders. DO NOT hold if NPO, unless specifically told to do so., Routine Group 2: POCT Fingerstick Glucose (CANCELED) Routine, EVERY 4 HOURS, First occurrence on Mon10/13/18 at 0000, Until Specified, Consider choosing EVERY 4 HOURS as frequency for: - Type 1 Diabetes - At least 24 hours after coming off an insulin drip - At least 24 hours after admission for DKA - Hypoglycemia unawareness - Patients who are otherwise unstable Select the same frequency for the correction bolus insulin order And insulin lispro (HumaLOG) VIAL injection 3-12 Units (CANCELED)Jump to med 3-12 Units, Subcutaneous, EVERY 4 HOURS SCHEDULED, First dose on Mon10/12/18 at 2045, Until Discontinued, CORRECTION BOLUS Resistant to insulin obese patient or TDD (total daily dose of all insulin needed to achieve glycemic control) greater than 60 units BG 140 - 160 Give 3 units BG 161 - 200 Give 6 units BG 201 - 240 Give 9 units BG greater than 240, give 12 units and recheck BG in 2 hours. If less than 240 after two hours, give no insulin and resume prior schedule. If BG remains greater than 240, repeat 12 units (no more than three times) & call for new basal insulin orders. DO NOT hold if NPO, unless specifically told to do so., Routine Group 3: POCT Fingerstick Glucose (CANCELED) Routine, EVERY 4 HOURS, First occurrence on 10/13/18 at 1200, Until Specified, Consider choosing EVERY 4 HOURS as frequency for: - Type 1 Diabetes - At least 24 hours after coming off an insulin drip - At least 24 hours after admission for DKA - Hypoglycemia unawareness - Patients who are otherwise unstable Select the same frequency for the correction bolus insulin order And insulin lispro (HumaLOG) VIAL injection 3-12 UnitsJump to med 3-12 Units, Subcutaneous, EVERY 4 HOURS SCHEDULED, First dose on 10/13/18 at 1200, Until Discontinued, CORRECTION BOLUS Resistant to insulin obese patient or TDD (total daily dose of all insulin needed to achieve glycemic control) greater than 60 units BG 140 - 160 Give 3 units BG 161 - 200 Give 6 units BG 201 - 240 Give 9 units BG greater than 240, give 12 units and recheck BG in 2 hours. If less than 240 after two hours, give no insulin and resume prior schedule. If BG remains greater than 240, repeat 12 units (no more than three times) & call for new basal insulin orders. DO NOT hold if NPO, unless specifically told to do so., Routine Group 4: glucose (GLUTOSE) 40% oral gelJump to med 15-30 g, Buccal, EVERY 30 MIN PRN, Starting on 10/13/18 at 0929, Until 10/14/18 at 1448, Low blood sugar, For BG 50-70 mg/dL: Oral treatment preferred:?? If able to drink, give 120 mL Juice or Regular (not diet) soda OR If NPO, give 15 gram glucose 40% oral gel massaged into buccal mucosa OR if unconscious or uncooperative, give 12.5 gram (25 mL) Dextrose 50% IV OR, if no IV access, give 1 mg Glucagon IM. For BG less than 50 mg/dL: Oral treatment preferred:?? If able to drink, give 240 mL Juice or Regular (not diet) soda OR If NPO, give 30 gram glucose 40% oral gel massaged in buccal mucosa OR if unconscious or uncooperative, give 25 gram (50 mL) Dextrose 50% IV OR, if no IV access, give 1 mg Glucagon IM. Recheck BG in 30 minutes. May repeat juice, gel, dextrose or glucagon once per episode. To avoid extravasation, push Dextrose 50% SLOWLY (3 mL over 1 minute) in a patent, running IV, preferably a central line. For persistent hypoglycemia, consider longer- acting treatment for the duration of the active insulin. 1 tube contains 15 grams of glucose (net weight of tube = 37.5 grams., Routine Or dextrose 50% intravenous solution 25-50 mLJump to med 25-50 mL (12.5-25 g), Intravenous, EVERY 1 HOUR PRN, Starting on 10/13/18 at 0929, Until 10/14/18 at 1448, Low blood sugar, For BG 50-70 mg/dL: Oral treatment preferred:?? If able to drink, give 120 mL Juice or Regular (not diet) soda OR If NPO, give 15 gram glucose 40% oral gel massaged into buccal mucosa OR if unconscious or uncooperative, give 12.5 gram (25 mL) Dextrose 50% IV OR, if no IV access, give 1 mg Glucagon IM. For BG less than 50 mg/dL: Oral treatment preferred:?? If able to drink, give 240 mL Juice or Regular (not diet) soda OR If NPO, give 30 gram glucose 40% oral gel massaged in buccal mucosa OR if unconscious or uncooperative, give 25 gram (50 mL) Dextrose 50% IV OR, if no IV access, give 1 mg Glucagon IM. Recheck BG in 30 minutes. May repeat juice, gel, dextrose or glucagon once per episode. To avoid extravasation, push Dextrose 50% SLOWLY (3 mL over 1 minute) in a patent, running IV, preferably a central line. For persistent hypoglycemia, consider longer-acting treatment for the duration of the active insulin., Routine Or glucagon (human recombinant) injection SolR 1 mgJump to med 1 mg, Intramuscular, EVERY 1 HOUR PRN, Starting on 10/13/18 at 0929, Until 10/14/18 at 1448, Low blood sugar, For BG 50-70 mg/dL: Oral treatment preferred:?? If able to drink, give 120 mL Juice or Regular (not diet) soda OR If NPO, give 15 gram glucose 40% oral gel massaged into buccal mucosa OR if unconscious or uncooperative, give 12.5 gram (25 mL) Dextrose 50% IV OR, if no IV access, give 1 mg Glucagon IM. For BG less than 50 mg/dL: Oral treatment preferred:?? If able to drink, give 240 mL Juice or Regular (not diet) soda OR If NPO, give 30 gram glucose 40% oral gel massaged in buccal mucosa OR if unconscious or uncooperative, give 25 gram (50 mL) Dextrose 50% IV OR, if no IV access, give 1 mg Glucagon IM. Recheck BG in 30 minutes. May repeat juice, gel, dextrose or glucagon once per episode. To avoid extravasation, push Dextrose 50% SLOWLY (3 mL over 1 minute) in a patent, running IV, preferably a central line. For persistent hypoglycemia, consider longer-acting treatment for the duration of the active insulin., Routine documented in this encounter Care Teams Go Go Dancer Relationship Specialty Start Date End Date Bandar Espinal MD [address] [place] [address] PCP - General 01/12/10 02/26/23 documented as of this encounter
--- OUTSIDE RECORDS SUMMARY | 2024-01-04 13:18 | XMS_ITS | Encounter Summary ---
[place] [address] Care Team Providers Care Metal Sprayer Name Role Phone Teddy Hernandez MD, [facility] Primary Care Provider [phone] Encounter Details Date Type Department Care Team (Late st Contact Info) Description 03/13/2020 Orders [place] [id number] Covid, Eligible none Social History Tobacco Use Types Packs/Day Years [...] AM EST Office Visit [place] [id number] Donavon Frey MD [facility] [place] [address] 02/06/2024 1:00 PM EST Office Visit Cardiology at [address] [phone] Adrian Tello MD [facility] [place] [address] 04/25/2024 10:30 AM EST Office Visit Sleep Center at [facility] [address] [place] [phone] Maria De Jesus Lange APRN [facility] [place] [address] documented as of this encounter Visit Diagnoses Not on filedocumented in this encounter Care Teams Metal Sprayer Relationship Specialty Start Date End Date Bandar Espinal MD [address] [place] [address] PCP - General 01/12/10 02/26/23 documented as of this encounter
--- OUTSIDE RECORDS SUMMARY | 2024-01-04 13:18 | XMS_ITS | Encounter Summary ---
Author Organization [facility] [place] [address] Care Team Providers Care Bottom Worker Name Role Phone Teddy Hernandez MD, Bandar Primary Care Provider [phone] Reason for Visit * Auth/Cert Specialty Diagnoses / Procedures Referred By Martha vasquez Referred To Contact Diagnoses Acute ST elevation myocardial infarction (STEMI) of inferior wall STEMI Procedures CARDIAC CATHETERIZATION Referral ID Status Reason Start Date Expiration Date Visits Re quested Visits Authorized [id number] 1 1 Encounter Details Date Type Department Care Team (Late st Contact Info) Description 10/12/2018 8:00 AM EDT - 10/12/2018 9:00 AM EDT Surgery [employer] [place] [address] Camron Patton II, MD [facility] [place] [address] CARDIAC CATHETERIZATION Social History Tobacco Use Types [...] on file documented as of this encounter Discharge Summaries * Jose Enrique [...] anemia -Please follow-up iron studies here at [facility] -Please follow-up peripheral smear review and hemoglobin [...] of tobacco abusewho presents in transfer from [facility] for an inferior STEMI. ?? Patient [...] after became chest pain-free. On arrival to [facility], the patient was in no acute distress. [...] Important Studies and Lab Data: Recent Labs 10/14/1872110/13/18 0610/12/18 1432 WBC 8.8 8.8 11.5* 10.5* HGB 11.1* 11.1* 11.9* 11.7* PLATELET 205 205 232 214 Recent Labs 10/14/18 0710/13/18 0603 10/12/18 1432 NA 140 139 136 K 4.3 4.5 4.5 CL 103 101 101 CO2 26 27 23 BUN 18 15 17 CREATININE 0.97 1.07 0.98 GLUCOSE -- -- 340* Recent Labs 10/14/18 0722 10/13/18 0603 10/12/18 1432 CALCIUM 8.6 9.1 8.9 MAGNESIUM 0.81 0.84 0.77 PHOS -- -- 3.4 Recent Labs 10/12/182002 TROPONINT 1.97* Recent Labs 10/12/18 1432 AST [...] 4:20 PM Karthikeyan Chu PA Cardiology at [facility] Arrive at: Staff Air Defense Officer Area [phone] Future Orders Complete By Expires Referral to Cardiac Rehab [[id number] Custom] As directed Process Instructions: If no progress note charted, please enter Clinical details in comments. Scheduling Instructions: Questions: My question or request is: STEMI. Cardiac rehab at [facility] General Instructions None Patient Instructions Patient Instructions [...] appointments: During 8am-5pm Monday through Monday call [phone] to speak with a nurse in the cardiology clinic All other times call [phone] and ask to speak to the fuel efficient aircraft designer communication technician. Activity level: - No heavy lifting (more [...] Center 11/20/2018 4:20 PM Karthikeyan Chu PA [facility] CARD 4A [facility] PCP: Please call your PCP to make a formal appointment within 7 days of leaving the hospital Your Inpatient Doctor(s) at [facility]: Jose Enrique Mckeon MD - Attending physician Genaro Falk DO - Resident physician Paramjit Alcantara MD - Planner/Scheduler physician Your Primary Care Provider: Bandar Hernandez MD (Inactive) BOX / [facility] [address] For questions regarding issues relating to your hospitalization on the Hospital Medicine Service, please contact your inpatient physician through the [facility] Paper Tube Grader [phone]. Issues after hours and on weekends will be handled by the Hospitalist staff on-call. For questions regarding this document or issues relating to this hospitalization on the Medical Service, please contact your inpatient physician through the [facility] Paper Tube Grader . Issues afterhours and on weekends will be handled by the [employer] Planners staff on-call. documented in this encounter Discharge Instructions * Patient Instructions* Genaro Falk DO - 10/12/2018 11:20 AM EDT Patient Instructions [...] appointments: During 8am-5pm Monday through Monday call [phone] to speak with a nurse in the cardiology clinic All other times call [phone] and ask to speak to the fuel efficient aircraft designer communication technician. Activity level: - No heavy lifting (more [...] Center 11/20/2018 4:20 PM Karthikeyan Chu PA [facility] CARD 4A [facility] PCP: Please call your PCP to make a formal appointment within 7 days of leaving the hospital Your Inpatient Doctor(s) at [facility]: Jose Enrique Mckeon MD - Attending physician Genaro Falk DO - Resident physician Paramjit Alcantara MD - Planner/Scheduler physician Your Primary Care Provider: Bandar Hernandez MD (Inactive) [address] / [facility] [address] For questions regarding issues relating to your hospitalization on the Hospital Medicine Service, please contact your inpatient physician through the [facility] Paper Tube Grader [phone]. Issues after hours and on weekends will be handled by the Hospitalist staff on-call. * Attachments The following attachments cannot be sent through Care Everywhere. * PCI (Percutaneous Coronary Intervention): Post-op (S[place]) documented in this encounter Medications at Time [...] All questions answered. Pt discharged walking to [facility] with staff and girlfriend in stable [...] priority for the procedure was Emergent. The [facility] indication for the procedure was STEMI (after [...] reduced LVEF ~51% in the setting of NV; will surveil on outpatient follow-up - NYHA Class I Insulin Dependant Diabetes Mellitus - Glargine 50 units nightly - Resistant SSI - Meal associated 1:10 Carb Ratio Other: - DVT prophylaxis: Ambulatory - GI prophylaxis: None - Diet: Carb Controlled - Code Status: Full - Dispo: Home Today Teddy Alcantara MD Emergency Medicine PGY-1 Cardiology S2, Pager [phone] 10/14/2018 Hayden is a 42-year-old man with diabetes mellitus, hypertension, dyslipidemia, and obesity, who is admitted to [facility] for an inferior STEMI. ??He underwent successful PCI of his RCA and left circumflexsystems. ??He has continued to show good recovery post revascularization. He does have mildly reduced LV systolic function in the setting of his NV, and he is on both metoprolol and [...] priority for the procedure was Emergent. [facility] indication for the procedure was STEMI (after [...] DO Internal Medicine PGY3 Cardiology S2, Pager [phone] 10/13/2018 Hayden is a 42-year-old man with diabetes mellitus, hypertension, dyslipidemia, and obesity, who is admitted to [facility] for an inferior STEMI. He underwent successful [...] Bandar Hernandez MD (Inactive) PCP phone #: [phone] ID/Chief Complaint: Inferior STEMI History of Present Illness: Hayden Russo is a 42 y.o. male with a past medical history of insulin- dependent type 2 diabetes mellitus, hypertension, hyperlipidemia and morbid obesity with a remote history of tobacco abusewho presents in transfer from [facility] for an inferior STEMI. Patient was [...] after became chest pain-free. On arrival to [facility], the patient was in no acute distress. 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 Invalid input(s): [id number] Heme: No results for input(s): LDH, HAPTOGLOBIN, [...] of tobacco abusewho presents in transfer from [facility] for an inferior STEMI. Plan to initiate goal-directed medical therapy as tolerated and educated patient on lifestyle modification. Follow-up transthoracic echocardiogram to be done. PLAN: Admit to Cardiology, S2 Team Pager #[phone] Inferior STEMI S/P MARIALUISA Distal RCA and [...] Controlled - Code Status: Full - Dispo:10/14 Genaro Falk, DO Internal Medicine PGY3 Cardiology S2, Pager [phone] 10/12/2018 Associated attestation - Jose Enrique Mckeon MD - 10/12/2018 11:39 AM EDT I have reviewed the resident's above history and I agree with the details as written. The assessment and plan were formulated in discussion with me and I agree with them as documented. Hayden is a 42-year-old man with diabetes mellitus, hypertension, dyslipidemia, and obesity, who is admitted to [facility] for an inferior STEMI. He underwent successful [...] in an outpatient cardiac rehabilitation program at [facility] was discussed. Patient agrees to a referral to this program. The referral will be sent at discharge and the patient should be contacted by the Program within 1- 2 weeks from discharge. * Op Note - Camron Patton II - 10/12/2018 10:19 AM EDT 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 Procedures: coronary angiography left [...] AM EST Office Visit [place] [address] Donavon Frey MD [facility] [place] [address] 02/06/2024 1:00 PM EST Office Visit Cardiology at [address] [address] Adrian Tello MD [facility] [place] [address] 04/25/2024 10:30 AM EST Office Visit Sleep Center at [address] [address] Maria De Jesus Lange APRN [facility] [place] [address] Scheduled Referrals Name Type Priority Associated Diagnoses [...] Routine 10/14/2018 7:22 AM EDT HEMOGLOBIN ELECTROPHORESIS ([place]) Routine 10/14/2018 7:22 AM EDT SCAN, PERIPHERAL [...] of inferior wall CARDIAC CATHETERIZATION Routine 10/13/19 10:00 AM EDT documented in this encounter Results * (ABNORMAL) POCT Glucose (10/14/2018 12:04 PM EDT) [facility] Glucose, POC 301(H) 65 - 199 mg/dL [facility] Comment: Supplemental ranges: <140 mg/dL before meals <180 mg/dL all other times of the day Blood specimen (specimen) 10/14/2018 12:04 PM EDT 10/14/2018 12:04 PM EDT Jose Enrique Mckeon MD POINT OF CARE TEST O RDERABLES [facility] [place] [address] * POCT Glucose (10/14/2018 7:57 AM EDT) Glucose, POC 154 65 - 199 mg/dL [facility] Comment: Supplemental ranges: <140 mg/dL before meals <180 mg/dL all other times of the day Blood specimen (specimen) 10/14/2018 7:57 AM EDT 10/14/2018 7:57 AM EDT Jose Enrique Mckeon MD POINT OF CARE TEST O RDERABLES Performing Organization Address [facility] Co de Phone Number [facility] [place] [address] * Hemoglobin Electrophoresis Report (10/14/2018 7:22 AM EDT) Hemoglobin Electrophoresis Report [id number] ? Location: [facility]; [facility]; A The signing pathologist has [...] Sun MD Verified: ??10/16/2018 ?Hematopathologist Performed at: ??-[facility] Dept. of Pathology, [place], [place] DISCUSSION WBC 8.4K/ul; RBC 5.5x10 ??6/ul; Hgb 11.1; MCV 68.7; RDW 15.4; PLT 205K/ul Morphology: Slight ??red blood cells anisopoikilocytosis with microcytes seen ??Hemoglobin Capillary ??Electrophoresis Study at 9.4: Hemoglobin A2 Quantification: 5.8 % (Normal 2.1% - 3.2%) Hemoglobin A 92.4% Hemoglobin F 1.8 % ADDITIONAL STUDIES NOT DONE CLINICAL INFORMATION LOW MCV [facility] 10/14/2018 7:22 AM EDT Genaro Falk DO PATHOLOGY/CYTOLOGY O RDERABLES Performing Organization Address City/[facility] Co de Phone Number [facility] [place] [address] * Scan, Peripheral Blood (10/14/2018 7:22 AM EDT) [facility] Plat estimate Normal [facility] RBC Morphology Abnormal [facility] Microcyte 6-10 /HPF [facility] Ovalocytes 1-5 /HPF [facility] Plat, Giant Less than 1 /HPF [facility] Blood specimen (specimen) 10/14/2018 7:22 AM EDT 10/14/2018 7:43 AM EDT Narrative Resulting Agency Comment Spec In Lab Genaro Falk DO HEMATOLOGY ORDERABLE S Performing Organization Address [facility] Co de Phone Number [facility] [place] [address] * (ABNORMAL) Hemogram (10/14/2018 7:22 AM EDT) [facility] White Blood Cell 8.8 4.0 - 9.5 x10(3)/mc L [facility] Red Blood Cell 5.49 4.58 - 5.54 x10(6)/mc L [facility] Hemoglobin 11.1(L) 13.7 - 16.5 gm/dL [facility] Hematocrit 37.7(L) 40.5 - 48.5 % [facility] Mean Cell Volume 68.7(L) 82.9 - 93.1 fL [facility] Mean Cell Hemoglobin 20.2(L) 27.5 - 32.1 pg [facility] Mean Cell Hemoglobin Concentration 29.4(L) 32.0 - 35.7 gm/dL [facility] Platelet 205 145 - 357 x10(3)/mc L [facility] RDW Standard Deviation 37.7 36.0 - 45.0 fL [facility] RDW coefficient of variation 15.4(H) 11.4 - 13.8 % [facility] Mean Platelet Volume 11.2 7.6 - 12.9 fL [facility] NRBC% auto 0.0 % [facility] NRBC Absolute 0.000 0.000 - 0.000 x10(3)/[facility] [place] [facility] Blood specimen (specimen) 10/14/2018 7:22 AM EDT 10/14/2018 7:43 AM EDT Narrative Resulting Agency Comment Spec In Lab Genaro Falk DO HEMATOLOGY ORDERABLE S Performing Organization Address City/State/[facility] Co de Phone Number [facility] [place] [address] * (ABNORMAL) Hemogram (10/14/2018 7:22 AM EDT) White Blood Cell 8.8 4.0 - 9.5 x10(3)/[facility] Red Blood Cell 5.49 4.58 - 5.54 x10(6)/ L [facility] Hemoglobin 11.1(L) 13.7 - 16.5 gm/dL [facility] Hematocrit 37.7(L) 40.5 - 48.5 % [facility] Mean Cell Volume 68.7(L) 82.9 - 93.1 fL [facility] Mean Cell Hemoglobin 20.2(L) 27.5 - 32.1 pg [facility] Mean Cell Hemoglobin Concentration 29.4(L) 32.0 - 35.7 gm/dL [facility] Platelet 205 145 - 357 x10(3)/mc L [facility] RDW Standard Deviation 37.7 36.0 - 45.0 fL [facility] RDW coefficient of variation 15.4(H) 11.4 - 13.8 % [facility] Mean Platelet Volume 11.2 7.6 - 12.9 fL [facility] NRBC% auto 0.0 % [facility] NRBC Absolute 0.000 0.000 - 0.000 x10(3)/mc L [facility] Blood specimen (specimen) 10/14/2018 7:22 AM EDT 10/14/2018 7:43 AM EDT Narrative Resulting Agency Comment Spec In Lab Genaro Falk DO HEMATOLOGY ORDERABLE S Performing Organization Address [facility] Co de Phone Number [facility] [place] [address] * Hemoglobin Electrophoresis (10/14/2018 7:22 AM EDT) Hgb El See Comment [facility] Comment: Testing completed, Hemoglobin Electrophoresis Report [id number] ??to follow under Hematology Reports. Hemoglobin A Percent 92.4 % [facility] Hemoglobin A2 Percent 5.8 [facility] Hemoglobin F Percent 0.8 [facility] Blood specimen (specimen) 10/14/2018 7:22 AM EDT 10/14/2018 7:43 AM EDT Narrative Resulting Agency Comment Spec In Lab Genaro Falk DO LAB SEND OUT ORDERAB LES Performing Organization Address City/[facility] Co de Phone Number [facility] [place] [address] * (ABNORMAL) Differential, Automated (10/14/2018 7:22 AM EDT) Neutrophil % 70.2 % [facility] Neutrophil Absolute 6.20(H) 1.70 - 6.10 x10(3)/ L [facility] Lymph % 17.7 % [facility] Lymphocytes Abs 1.6 0.9 - 3.2 x10(3)/[facility] [place] [facility] Monocyte % 9.4 % [facility] Monocyte Abs 0.8 0.3 - 0.9 x10(3)/[facility] Eos % 1.5 % [facility] Eosinophils Abs 0.1 0.0 - 0.4 x10(3)/[facility] Basophil % 0.5 % [facility] Baso Absolute 0.0 0.0 - 0.1 x10(3)/[facility] Immature Gran % 0.70 % [facility] Comment: Immature granulocytes(IG's)percentage and absolute count will include metamyelocytes, myelocytes, and promyelocytes. Blood smears from CBCs yielding IG's will be scanned manually for concordance. If this scan disagrees with the automated IG or if promyelocytes are noted, a manual differential will be performed. Immature Gran Absolute 0.06(H) 0.00 - 0.04 x10(3)/[facility] Blood specimen (specimen) 10/14/2018 7:22 AM EDT 10/14/2018 7:43 AM EDT Narrative Resulting Agency Comment Spec In Lab Genaro Falk DO HEMATOLOGY ORDERABLE S [facility] [place] [address] * Magnesium (10/14/2018 7:22 AM EDT) Magnesium 0.81 0.69 - 1.07 mmol/L [facility] Blood specimen (specimen) 10/14/2018 7:22 AM EDT 10/14/2018 7:43 AM EDT Narrative Resulting Agency Comment Spec In Lab Jose Enrique Mckeon MD CHEMISTRY ORDERABLES [facility] [place] [address] * (ABNORMAL) BMP w/fasting Glucose (10/14/2018 7:22 AM EDT) Glucose Fasting 181(H) 65 - 99 mg/dL [facility] Comment: ?Fasting* Glucose Interpretive Criteria [...] of Diabetes Mellitus, Position Statement from the [place] [employer]. ??Diabetes Care, Volume 33, Supplement 1, Feb 2009 Blood Urea Nitrogen 18 10 - 20 mg/dL [facility] Creatinine 0.97 0.80 - 1.50 mg/dL [facility] Sodium 140 135 - 145 mmol/L [facility] Potassium 4.3 3.5 - 5.0 mmol/L [facility] Comment: Please note: ??Patients with WBC >100,000 may have falsely elevated Potassium levels. ??For accurate Potassium quantification in these patients send serum separator tube (gold top) for subsequent determinations. ??Contact the Clinical Chemistry Laboratory if there are any questions. Chloride 103 98 - 107 mmol/L [facility] Carbon Dioxide 26 22 - 31 mmol/L [facility] Anion Gap 11 5 - 15 mmol/L [facility] Calcium 8.6 8.5 - 10.5 mg/dL [facility] Est Glomerular Filtration Rate 97 >=60 mL/min/1. 73 m?? [facility] Comment: The eGFR was calculated using the CKD-EPI equation. As with all creatinine based estimates of kidney function, eGFR values calculated with the CKD-EPI equation are not accurate in patients with acute kidney failure, extremes of body mass or the acutely ill. [email or web address] eGFR 113 >=60 mL/min/1. 73 m?? [facility] Comment: The eGFR was calculated using the CKD-EPI equation. As with all creatinine based estimates of kidney function, eGFR values calculated with the CKD-EPI equation are not accurate in patients with acute kidney failure, extremes of body mass or the acutely ill. [email or web address] Blood specimen (specimen) 10/14/2018 7:22 AM EDT 10/14/2018 7:43 AM EDT Narrative Resulting Agency Comment Spec In Lab Jose Enrique Mckeon MD CHEMISTRY ORDERABLES Performing Organization Address City/[facility]/ZIP Co de Phone Number [facility] [place] [address] * Peripheral Smear Review (10/14/2018 7:22 AM EDT) Peripheral Smear Review See Comment [facility] Comment: When completed by the Pathologist, report [id number] will display under Hematopathology Reports. Blood specimen (specimen) 10/14/2018 7:22 AM EDT 10/14/2018 7:43 AM EDT Narrative Resulting Agency Comment Spec In Lab Jose Enrique Mckeon MD HEMATOLOGY ORDERABLE S [facility] [place] [address] * (ABNORMAL) Ferritin (10/14/2018 7:22 AM EDT) Ferritin 479(H) 30 - 400 ng/mL [facility] Comment: Pediatric reference ranges not verified at [facility], interpret with caution. Reference ranges for females greater than 50 years of age approach values for men, i.e., 30-400 ng/mL. Blood specimen (specimen) 10/14/2018 7:22 AM EDT 10/14/2018 7:43 AM EDT Narrative Resulting Agency Comment Spec In Lab Jose Enrique Mckeon MD CHEMISTRY ORDERABLES Performing Organization Address [facility] Co de Phone Number [facility] [place] [address] * (ABNORMAL) Iron and TIBC (10/14/2018 7:22 AM EDT) [facility] Iron 39(L) 45 - 160 mcg/dL [facility] TIBC 247(L) 250 - 450 mcg/dL [facility] Iron Saturation 16(L) 20 - 50 % [facility] Blood specimen (specimen) 10/14/2018 7:22 AM EDT 10/14/2018 7:43 AM EDT Narrative Resulting Agency Comment Spec In Lab Jose Enrique Mckeon MD CHEMISTRY ORDERABLES Performing Organization Address [facility] Co de Phone Number [facility] [place] [address] * POCT Glucose (10/14/2018 4:26 AM EDT) [facility] Glucose, POC 142 65 - 199 mg/dL [facility] Comment: Supplemental ranges: <140 mg/dL before meals <180 mg/dL all other times of the day Blood specimen (specimen) 10/14/2018 4:26 AM EDT 10/14/2018 4:26 AM EDT Jose Enrique Mckeon MD POINT OF CARE TEST O RDERABLES Performing Organization Address [facility] Co de Phone Number [facility] [place] [address] * Smear Review Report (10/14/2018 1:11 AM EDT) [facility] Smear Review Report [id number] ? Location: [facility]; C452; A The signing pathologist has (i) examined the relevant preparation(s) for the specimen(s) and (ii) rendered or confirmed the diagnosis(es). . ? Smear Review DIAGNOSIS Microcytic anemia. Electronically signed by: ??Andrew Sun MD Verified: ??10/15/2018 ?Hematopatholog ist Performed at: ??-[facility] Dept. of Pathology, [place], [place] DISCUSSION This can be seen in [...] CBC and manual differential. CLINICAL INFORMATION anemia. [facility] 10/14/2018 1:11 AM EDT Genaro Falk DO HEMATOLOGY ORDERABLE S Performing Organization Address [facility] Co de Phone Number [facility] [place] [address] * POCT Glucose (10/14/2018 12:16 AM EDT) Glucose, POC 196 65 - 199 mg/dL [facility] Comment: Supplemental ranges: <140 mg/dL before meals <180 mg/dL all other times of the day Blood specimen (specimen) 10/14/2018 12:16 AM EDT 10/14/2018 12:16 AM EDT Jose Enrique Mckeon MD POINT OF CARE TEST O RDERABLES Performing Organization Address [facility] Co de Phone Number [facility] [place] [address] * (ABNORMAL) POCT Glucose (10/13/2018 10:16 PM EDT) Glucose, POC 307(H) 65 - 199 mg/dL [facility] Comment: Supplemental ranges: <140 mg/dL before meals <180 mg/dL all other times of the day Blood specimen (specimen) 10/13/2018 10:16 PM EDT 10/13/2018 10:16 PM EDT Jose Enrique Mckeon MD POINT OF CARE TEST O RDERACHARLI [facility] [place] [address] * (ABNORMAL) POCT Glucose (10/13/2018 8:12 PM EDT) Glucose, POC 289(H) 65 - 199 mg/dL [facility] Comment: Supplemental ranges: <140 mg/dL before meals <180 mg/dL all other times of the day Blood specimen (specimen) 10/13/2018 8:12 PM EDT 10/13/2018 8:12 PM EDT Jose Enrique Mckeon MD POINT OF CARE TEST O [place] Performing Organization Address [facility]/ZIP Co de Phone Number [facility] [place] [address] * (ABNORMAL) POCT Glucose (10/13/2018 4:24 PM EDT) Glucose, POC 232(H) 65 - 199 mg/dL [facility] Comment: Supplemental ranges: <140 mg/dL before meals <180 mg/dL all other times of the day Blood specimen (specimen) 10/13/2018 4:24 PM EDT 10/13/2018 4:24 PM EDT Jose Enrique Mckeon MD POINT OF CARE TEST O [place] [facility] [place] [address] * (ABNORMAL) POCT Glucose (10/13/2018 2:01 PM EDT) Glucose, POC 325(H) 65 - 199 mg/dL [facility] Comment: Supplemental ranges: <140 mg/dL before meals <180 mg/dL all other times of the day Blood specimen (specimen) 10/13/2018 2:01 PM EDT 10/13/2018 2:01 PM EDT Jose Enrique Mckeon MD POINT OF CARE TEST O RDERACHARLI [facility] [place] [address] * (ABNORMAL) POCT Glucose (10/13/2018 11:41 AM EDT) Glucose, POC 293(H) 65 - 199 mg/dL [facility] Comment: Supplemental ranges: <140 mg/dL before meals <180 mg/dL all other times of the day Blood specimen (specimen) 10/13/2018 11:41 AM EDT 10/13/2018 11:41 AM EDT Jose Enrique Mckeon MD POINT OF CARE TEST O RDERACHARLI Performing Organization Address City/[facility]/ZIP Co de Phone Number [facility] [place] [address] * (ABNORMAL) POCT Glucose (10/13/2018 11:40 AM EDT) Glucose, POC 337(H) 65 - 199 mg/dL [facility] Comment: Supplemental ranges: <140 mg/dL before meals <180 mg/dL all other times of the day Blood specimen (specimen) 10/13/2018 11:40 AM EDT 10/13/2018 11:40 AM EDT Jose Enrique Mckeon MD POINT OF CARE TEST O RDERACHARLI [facility] [place] [address] * POCT Glucose (10/13/2018 7:40 AM EDT) Glucose, POC 179 65 - 199 mg/dL [facility] Comment: Supplemental ranges: <140 mg/dL before meals <180 mg/dL all other times of the day Blood specimen (specimen) 10/13/2018 7:40 AM EDT 10/13/2018 7:40 AM EDT Jose Enrique Mckeon MD POINT OF CARE TEST O RDERABLES [facility] [place] [address] * (ABNORMAL) Differential, Automated (10/13/2018 6:03 AM EDT) Pathologist [facility] Neutrophil % 75.7 % [facility] Neutrophil Absolute 8.70(H) 1.70 - 6.10 x10(3)/mc L [facility] Lymph % 14.1 % [facility] Lymphocytes Abs 1.6 0.9 - 3.2 x10(3)/mc L [facility] Monocyte % 7.9 % [facility] Monocyte Abs 0.9 0.3 - 0.9 x10(3)/mc L [facility] Eos % 1.5 % [facility] Eosinophils Abs 0.2 0.0 - 0.4 x10(3)/mc L [facility] Basophil % 0.4 % [facility] Baso Absolute 0.0 0.0 - 0.1 x10(3)/mc L [facility] Immature Gran % 0.40 % [facility] Comment: Immature granulocytes(IG's)percentage and absolute count will include metamyelocytes, myelocytes, and promyelocytes. Blood smears from CBCs yielding IG's will be scanned manually for concordance. If this scan disagrees with the automated IG or if promyelocytes are noted, a manual differential will be performed. Immature Gran Absolute 0.05(H) 0.00 - 0.04 x10(3)/ L [facility] Blood specimen (specimen) 10/13/2018 6:03 AM EDT 10/13/2018 6:17 AM EDT Narrative Resulting Agency Comment Spec In Lab Genaro Falk DO HEMATOLOGY ORDERABLE S [facility] [place] [place] [address] * (ABNORMAL) Hemogram (10/13/2018 6:03 AM EDT) White Blood Cell 11.5(H) 4.0 - 9.5 x10(3)/[facility] LABORATORY Red Blood Cell 5.95(H) 4.58 - 5.54 x10(6)/[facility] LAB[facility] Hemoglobin 11.9(L) 13.7 - 16.5 gm/dL [facility] Hematocrit 40.2(L) 40.5 - 48.5 % [facility] Mean Cell Volume 67.6(L) 82.9 - 93.1 [facility] Mean Cell Hemoglobin 20.0(L) 27.5 - 32.1 pg [facility] Mean Cell Hemoglobin Concentration 29.6(L) 32.0 - 35.7 gm/dL [facility] Platelet 232 145 - 357 x10(3)/[facility] LAB[facility] RDW Standard Deviation 37.5 36.0 - 45.0 [facility] RDW coefficient of variation 16.2(H) 11.4 - 13.8 % [facility] Mean Platelet Volume 11.4 7.6 - 12.9 [facility] NRBC% auto 0.0 % [facility] NRBC Absolute 0.000 0.000 - 0.000 x10(3)/ L [facility] Blood specimen (specimen) 10/13/2018 6:03 AM EDT 10/13/2018 6:17 AM EDT Narrative Resulting Agency Comment Spec In Lab Genaro Falk DO HEMATOLOGY ORDERABLE S Performing Organization Address City/[facility]/ZIP Co de Phone Number [facility] [place] [address] * Magnesium (10/13/2018 6:03 AM EDT) Magnesium 0.84 0.69 - 1.07 mmol/L [facility] Blood specimen (specimen) 10/13/2018 6:03 AM EDT 10/13/2018 6:17 AM EDT Narrative Resulting Agency Comment Spec In Lab Jose Enrique Mckeon MD CHEMISTRY ORDERABLES Performing Organization Address [facility] Co de Phone Number [facility] [place] [address] * (ABNORMAL) BMP w/fasting Glucose (10/13/2018 6:03 AM EDT) Glucose Fasting 179(H) 65 - 99 mg/dL [facility] Comment: ?Fasting* Glucose Interpretive Criteria [...] of Diabetes Mellitus, Position Statement from the [place] [employer]. ??Diabetes Care, Volume 33, Supplement 1, Feb 2009 Blood Urea Nitrogen 15 10 - 20 mg/dL [facility] Creatinine 1.07 0.80 - 1.50 mg/dL [facility] Sodium 139 135 - 145 mmol/L [facility] Potassium 4.5 3.5 - 5.0 mmol/L [facility] Comment: Please note: ??Patients with WBC >100,000 may have falsely elevated Potassium levels. ??For accurate Potassium quantification in these patients send serum separator tube (gold top) for subsequent determinations. ??Contact the Clinical Chemistry Laboratory if there are any questions. Chloride 101 98 - 107 mmol/L [facility] Carbon Dioxide 27 22 - 31 mmol/L [facility] Anion Gap 11 5 - 15 mmol/L [facility] Calcium 9.1 8.5 - 10.5 mg/dL [facility] Est Glomerular Filtration Rate 86 >=60 mL/min/1. 73 m?? [facility] Comment: The eGFR was calculated using the CKD-EPI equation. As with all creatinine based estimates of kidney function, eGFR values calculated with the CKD-EPI equation are not accurate in patients with acute kidney failure, extremes of body mass or the acutely ill. [email or web address] eGFR 100 >=60 mL/min/1. 73 m?? [facility] Comment: The eGFR was calculated using the CKD-EPI equation. As with all creatinine based estimates of kidney function, eGFR values calculated with the CKD-EPI equation are not accurate in patients with acute kidney failure, extremes of body mass or the acutely ill. [email or web address] Blood specimen (specimen) 10/13/2018 6:03 AM EDT 10/13/2018 6:17 AM EDT Narrative Resulting Agency Comment Spec In Lab Jose Enrique Mckeon MD CHEMISTRY ORDERABLES [facility] [place] [address] * Triglyceride (10/13/2018 6:03 AM EDT) Triglyceride 269 mg/dL [facility] Comment: Average Risk/Lower Risk: <150 mg/dL Borderline High Risk: 150-199 mg/dL High Risk: 200-499 mg/dL Very High Risk: >mj=166 mg/dL Blood specimen (specimen) 10/13/2018 6:03 AM EDT 10/13/2018 6:17 AM EDT Narrative Resulting Agency Comment Spec In Lab Camron Patton II, MD CHEMISTRY ORDER DAVID [facility] [place] [address] * HDL/Cholesterol Profile (10/13/2018 6:03 AM EDT) Cholesterol, Total 138 mg/dL [facility] Comment: Lower Risk: <200 mg/dL Average Risk: 200-239 mg/dL Higher Risk: >dt=407 mg/dL HDL Cholesterol 28 mg/dL [facility] Comment: Males: ?? Higher Risk: <40 mg/dL Females: ?? HIgher Risk: <50 mg/dL Cholesterol/HDL Ratio 4.9 ratio [facility] Chol/HDL Interpretation See Note [facility] Comment: Lipid management should be guided by a patient? s ASCVD risk, goals and preferences. ACC/AHA Guidelines recommend high intensity statin if clinical ASCVD or LDL greater than or equal to 190 mg/dL. [email or web address]/[email or web address]-[email or web address]-[email or web address] Measure LDL if Total Cholesterol minus HDL Cholesterol is greater than 220 mg/dL. Adults aged 40-75 with LDL 70-189 mg/dL should have their 10 year ASCVD risk estimated with the ACC/AHA ASCVD risk estimator and drafter http://tools.acc.org/VAKXB-Epwz-Auizjljqb/ Statin should be discussed if risk greater [...] MD CHEMISTRY ORDER DAVID Performing Organization Address [facility] Co de Phone Number [facility] [place] [address] * LDL Cholesterol, Direct (10/13/2018 6:03 AM EDT) LDL Cholesterol, Direct 72 mg/dL [facility] Comment: Lowest Risk: <100 mg/dL Lower Risk: 100-129 mg/dL Borderline High Risk: 130-159 mg/dL High Risk: 160-189 mg/dL Very High Risk: >ay=446 mg/dL Blood specimen (specimen) 10/13/2018 6:03 AM EDT 10/13/2018 6:17 AM EDT Narrative Resulting Agency Comment Spec In Lab Camron Patton II, MD CHEMISTRY ORDER DAVID Performing Organization Address [facility] Co de Phone Number [facility] [place] [address] * (ABNORMAL) Hemoglobin A1c (10/13/2018 6:03 AM EDT) Hemoglobin A1c 13.9(H) 4.3 - 5.6 % [facility] Comment: Reference Range: 4.3 - [...] Mellitus, Diabetes Care 2013; 36: Suppl. 1, S67-74 Estimated Average Glucose 351 mg/dL [facility] Comment: eAG equivalents for HbA1c percentages: [...] the ADA website. Karthikeyan SANTANA, Marimar J, Croey R, et al. ??Translating the A1C assay into estimated average glucose values. ??Diabetes Care 2008:31(8):1537-5167. Blood specimen (specimen) 10/13/2018 6:03 AM EDT 10/13/2018 6:17 AM EDT Narrative Resulting Agency Comment Spec In Lab Camron Patton II, MD CHEMISTRY ORDER DAVID Performing Organization Address [facility]/ZIP Co de Phone Number [facility] [place] [address] * POCT Glucose (10/13/2018 4:22 AM EDT) Pathologist [facility] Glucose, POC 161 65 - 199 mg/dL [facility] Comment: Supplemental ranges: <140 mg/dL before meals <180 mg/dL all other times of the day Blood specimen (specimen) 10/13/2018 4:22 AM EDT 10/13/2018 4:22 AM EDT Jose Enrique Mckeon MD POINT OF CARE TEST O RDERABLES Performing Organization Address [facility] Co de Phone Number [facility] [place] [address] * (ABNORMAL) Troponin (10/12/2018 8:03 PM EDT) Pathologist [facility] Troponin-T 1.97(H) 0.00 - 0.00 ng/mL [facility] Comment: The 99th percentile for Troponin T is less than 0.01 ng/mL, any detectable cTnT concentration using this assay should be considered elevated. According to the third universal definition of myocardial infarction the following criteria with a clinical presentation consistent with acute myocardial ischemia meets the diagnosis for a myocardial infarction ([place]). Detection of a rise and/or fall of cTnT, with at least one value greater than the 99th percentile (> or = 0.01) and with at least one of the following ?? Symptoms of ischemia ?? New or presumed new significant JW-ibcfaxa-T wave (ST-T) changes or new left bundle [...] additional sample may be indicated. Reference: Third [place] Definition of Myocardial Infarction. Journal of the [place] College [employer] 2012;60:1581-98 Blood specimen (specimen) 10/12/2018 8:03 PM EDT 10/12/2018 8:08 PM EDT Narrative Resulting Agency Comment Spec In Lab Jose Enrique Mckeon MD CHEMISTRY ORDERABLES [facility] [place] [address] * ECHO COMPLETE W CONTRAST (10/12/2018 5:33 PM EDT) EF 51 HEARTLAB SYSTEM Anatomical Region Laterality Modality Other 10/13/2018 Narrative 10/13/2018 1:11 PM EDT Procedure: ?Transthoracic Echocardiogram Patient: ?NAOMI REN ?? (Age): 1975(42y) Med Rec#: ? [id number] ?Sex: ?M ? Site Loc: ? [facility] ?Ht / Wt: ??177(cm)/98.43(k Pt. Loc: ?Adult Floor ? BSA: ?2.15 Study Date: ?? 10/12/2018 ?Pt. Type: Inpatient Tape: ? Referring: MAKAYLA Reading: Alec Downs ([id number]) Deep Fat Cook Fry: Julio Goodson MS, [facility] Diagnosis: *ST elevation (STEMI) myocardial infarction [...] E-wave Vmax ?0.8 ?m/sec ? MV deceleration [id number] ?msec ? MV A-wave Vmax ?0.5 ?m/sec [...] ? Mid-Inferior ?Normal ? Mid-Inferoseptal ?Normal ? [place]-Septal ? Normal ? [place]-Anterior ? Normal ? [place]-Lateral ?Hypokinetic ? [place]-Inferior ? Normal ? [place]-Tip ?Normal ? This report has been electronically signed by: Alec Downs MD ? 10/13/2018 13:10:32 Images reviewed and interpretation verified [facility] Cardiac Ultrasound Laboratory Procedure Note Alec Downs MD - 10/13/2018 Procedure: Transthoracic Echocardiogram Patient: NAOMI PERLA(Age): 1975(42y) Med Rec#: [id number] Sex: M Site Loc: [facility] Ht / Wt: 177(cm)/98.43(k Pt. Loc: Adult Floor BSA: 2.15 Study Date: 10/12/2018 Pt. Type: Inpatient Tape: Referring: MAKAYLA Reading: Alec Downs ([id number]) Deep Fat Cook Fry: Julio Goodson MS, [facility] Diagnosis: *ST elevation (STEMI) myocardial infarction [...] MV E-wave Vmax 0.8 m/sec MV deceleration [id number] msec MV A-wave Vmax 0.5 m/sec MV [...] Hypokinetic Mid-Posterolateral Hypokinetic Mid-Inferior Normal Mid-Inferoseptal Normal [place]-Septal Normal [place]-Anterior Normal [place]-Lateral Hypokinetic [place]-Inferior Normal [place]-Tip Normal This report has been electronically signed by: Alec Downs MD 10/13/2018 13:10:32 Images reviewed and interpretation verified [facility] Cardiac Ultrasound Laboratory Jose Enrique Mckeon MD ECHO ORDERABLES * (ABNORMAL) POCT Glucose (10/12/2018 4:15 PM EDT) Glucose, POC 326(H) 65 - 199 mg/dL [facility] Comment: Supplemental ranges: <140 mg/dL before meals <180 mg/dL all other times of the day Blood specimen (specimen) 10/12/2018 4:15 PM EDT 10/12/2018 4:15 PM EDT Jose Enrique Mckeon MD POINT OF CARE TEST O RDERABLES Performing Organization Address [facility] Co de Phone Number [facility] [place] [address] * Scan, Peripheral Blood (10/12/2018 2:32 PM EDT) [facility] Plat estimate Normal [facility] RBC Morphology Abnormal [facility] Microcyte 6-10 /HPF [facility] Hypochromia Slight [facility] Ovalocytes 1-5 /HPF [facility] Blood specimen (specimen) 10/12/2018 2:32 PM EDT 10/12/2018 2:51 PM EDT Narrative Resulting Agency Comment Spec In Lab Genaro Falk DO HEMATOLOGY ORDERABLE S Performing Organization Address [facility] Co de Phone Number [facility] [place] [place] [address] * (ABNORMAL) Differential, Automated (10/12/2018 2:32 PM EDT) [facility] Neutrophil % 78.7 % [facility] Neutrophil Absolute 8.29(H) 1.70 - 6.10 x10(3)/mc L [facility] Lymph % 14.0 % [facility] Lymphocytes Abs 1.5 0.9 - 3.2 x10(3)/mc L [facility] Monocyte % 5.5 % [facility] Monocyte Abs 0.6 0.3 - 0.9 x10(3)/mc L [facility] Eos % 0.7 % [facility] Eosinophils Abs 0.1 0.0 - 0.4 x10(3)/[facility] LABORATORY Basophil % 0.5 % [facility] Baso Absolute 0.0 0.0 - 0.1 x10(3)/[facility] LABORATORY Immature Gran % 0.60 % [facility] Comment: Immature granulocytes(IG's)percentage and absolute count will include metamyelocytes, myelocytes, and promyelocytes. Blood smears from CBCs yielding IG's will be scanned manually for concordance. If this scan disagrees with the automated IG or if promyelocytes are noted, a manual differential will be performed. Immature Gran Absolute 0.06(H) 0.00 - 0.04 x10(3)/[facility] LABORATORY Blood specimen (specimen) 10/12/2018 2:32 PM EDT 10/12/2018 2:51 PM EDT Narrative Resulting Agency Comment Spec In Lab Genaro Falk DO HEMATOLOGY ORDERABLE S [facility] [place] [address] * (ABNORMAL) Hemogram (10/12/2018 2:32 PM EDT) White Blood Cell 10.5(H) 4.0 - 9.5 x10(3)/[facility] LABORAT[facility] Red Blood Cell 5.84(H) 4.58 - 5.54 x10(6)/[facility] Hemoglobin 11.7(L) 13.7 - 16.5 gm/dL [facility] Hematocrit 39.3(L) 40.5 - 48.5 % [facility] Mean Cell Volume 67.3(L) 82.9 - 93.1 fL [facility] Mean Cell Hemoglobin 20.0(L) 27.5 - 32.1 pg [facility] Mean Cell Hemoglobin Concentration 29.8(L) 32.0 - 35.7 gm/dL [facility] Platelet 214 145 - 357 x10(3)/mc L [facility] RDW Standard Deviation 36.6 36.0 - 45.0 fL [facility] RDW coefficient of variation 15.5(H) 11.4 - 13.8 % [facility] Mean Platelet Volume 12.2 7.6 - 12.9 fL [facility] NRBC% auto 0.0 % [facility] NRBC Absolute 0.000 0.000 - 0.000 x10(3)/mc L [facility] Blood specimen (specimen) 10/12/2018 2:32 PM EDT 10/12/2018 2:51 PM EDT Narrative Resulting Agency Comment Spec In Lab Genaro Falk DO HEMATOLOGY ORDERABLE S Performing Organization Address City/[facility]/ZIP Co de Phone Number [facility] [place] [address] * APTT (10/12/2018 2:32 PM EDT) Partial Thromboplastin Time 27 25 - 37 sec [facility] Comment: The PTT is NOT appropriate for heparin monitoring. Use the Anti-Xa level for heparin monitoring (HEP UFH) or LMWH monitoring (HEP LMW). A PTT less than 37 seconds generally indicates adequate hemostasis. Blood specimen (specimen) 10/12/2018 2:32 PM EDT 10/12/2018 2:51 PM EDT Narrative Resulting Agency Comment Spec In Lab Camron Patton II, MD HEMATOLOGY MYKE BIGGS Performing Organization Address City/[facility]/ZIP Co de Phone Number [facility] [place] [address] * Prothrombin Time (10/12/2018 2:32 PM EDT) Prothrombin Time 10.7 9.4 - 12.5 sec [facility] International Normalization Ratio 0.9 [facility] Comment: An INR <2.0 indicates [...] In Lab Camron Patton II, MD HEMATOLOGY ORDE KALYAN Performing Organization Address [facility]/ZIP Co de Phone Number [facility] [place] [address] * TSH [place] (10/12/2018 2:32 PM EDT) Thyroid Stimulating Hormone 1.88 0.27 - 4.20 mcIU/mL [facility] Blood specimen (specimen) 10/12/2018 2:32 PM EDT 10/12/2018 2:51 PM EDT Narrative Resulting Agency Comment Spec In Lab Camron Patton II, MD CHEMISTRY ORDER DAVID Performing Organization Address [facility]/ZIP Co de Phone Number [facility] [place] [address] * (ABNORMAL) Hepatic Function Panel (10/12/2018 2:32 PM EDT) Protein, Total 6.8 6.1 - 8.0 gm/dL [facility] Albumin 3.8 3.2 - 5.2 gm/dL [facility] Aspartate Aminotransferase 88(H) 0 - 39 unit/L [facility] Alanine Aminotransferase 49 0 - 55 unit/L [facility] Alkaline Phosphatase 67 40 - 130 unit/L [facility] Bilirubin, Total 0.6 0.2 - 1.3 mg/dL [facility] Bilirubin, Direct 0.1 0.0 - 0.3 mg/dL [facility] Blood specimen (specimen) 10/12/2018 2:32 PM EDT 10/12/2018 2:51 PM EDT Narrative Resulting Agency Comment Spec In Lab Camron Patton II, MD CHEMISTRY ORDER DAVID Performing Organization Address City/[facility]/ZIP Co de Phone Number [facility] [place] [address] * (ABNORMAL) pro-Brain Natriuretic Peptide (10/12/2018 2:32 PM EDT) NT-proBNP 1,349(H) <=125 pg/mL [facility] Blood specimen (specimen) 10/12/2018 2:32 PM EDT 10/12/2018 2:51 PM EDT Narrative Resulting Agency Comment Spec In Lab Camron Patton II, MD CHEMISTRY ORDER DAVID Performing Organization Address City/[facility]/ZIP Co de Phone Number [facility] [place] [address] * Phosphorus (10/12/2018 2:32 PM EDT) Phosphorus 3.4 2.5 - 4.5 mg/dL [facility] Blood specimen (specimen) 10/12/2018 2:32 PM EDT 10/12/2018 2:51 PM EDT Narrative Resulting Agency Comment Spec In Lab Camron Patton II, MD CHEMISTRY ORDER DAVID [facility] [place] [address] * Magnesium (10/12/2018 2:32 PM EDT) Magnesium 0.77 0.69 - 1.07 mmol/L [facility] Blood specimen (specimen) 10/12/2018 2:32 PM EDT 10/12/2018 2:51 PM EDT Narrative Resulting Agency Comment Spec In Lab Camron Patton II, MD CHEMISTRY ORDER DAVID [facility] [place] [address] * (ABNORMAL) Basic Metabolic Panel (non-fasting) (10/12/2018 2:32 PM EDT) Glucose 340(H) 65 - 199 mg/dL [facility] Comment:Diabetes: >=200 mg/d L plus symptoms Blood Urea Nitrogen 17 10 - 20 mg/dL [facility] Creatinine 0.98 0.80 - 1.50 mg/dL [facility] Sodium 136 135 - 145 mmol/L [facility] Potassium 4.5 3.5 - 5.0 mmol/L [facility] Comment: Please note: ??Patients with WBC >100,000 may have falsely elevated Potassium levels. ??For accurate Potassium quantification in these patients send serum separator tube (gold top) for subsequent determinations. ??Contact the Clinical Chemistry Laboratory if there are any questions. Chloride 101 98 - 107 mmol/L [facility] Carbon Dioxide 23 22 - 31 mmol/L [facility] Anion Gap 12 5 - 15 mmol/L [facility] Calcium 8.9 8.5 - 10.5 mg/dL [facility] Est Glomerular Filtration Rate 96 >=60 mL/min/1. 73 m?? [facility] Comment: The eGFR was calculated using the CKD-EPI equation. As with all creatinine based estimates of kidney function, eGFR values calculated with the CKD-EPI equation are not accurate in patients with acute kidney failure, extremes of body mass or the acutely ill. [email or web address] eGFR 111 >=60 mL/min/1. 73 m?? [facility] Comment: The eGFR was calculated using the CKD-EPI equation. As with all creatinine based estimates of kidney function, eGFR values calculated with the CKD-EPI equation are not accurate in patients with acute kidney failure, extremes of body mass or the acutely ill. [email or web address] Blood specimen (specimen) 10/12/2018 2:32 PM EDT 10/12/2018 2:51 PM EDT Narrative Resulting Agency Comment Spec In Lab Camron Patton II, MD CHEMISTRY ORDER DAVID Performing Organization Address [facility] Co de Phone Number [facility] [place] [address] * EKG 12 Lead (10/12/2018 11:06 AM EDT) Ventricular rate 84 BPM MUSE SYSTEM Atrial Rate 84 BPM MUSE SYSTEM P-R Interval 172 ms MUSE SYSTEM QRS Duration 90 ms MUSE SYSTEM Q-T Interval 356 ms MUSE SYSTEM QTC Calculated (Bezet) 420 ms MUSE SYSTEM Calculated P Juliaetta 46 degrees MUSE SYSTEM Calculated R Juliaetta -4 degrees MUSE SYSTEM Calculated T Juliaetta 28 degrees MUSE SYSTEM INTERPRETATION Normal sinus rhythm Inferior infarct , age undetermined Abnormal ECG No previous ECGs available Confirmed by MD SARAH, STEVEN ([id number]) on 10/16/2018 11:32:05 AM MUSE SYSTEM 10/12/2018 11:0 6 AM EDT 10/16/2018 11:32 AM EDT Camron Patton II, MD ECG ORDERABLES Performing Organization Address [facility] Co de Phone Number MUSE SYSTEM * CARDIAC CATHETERIZATION (10/12/2018 10:00 AM EDT) Anatomical Region Laterality Modality Other Narrative 10/12/2018 11:19 AM EDT ?[facility] ? Cardiac Catheterization/Intervention Report ? Patient Name: Karthikeyanrita Hayden Constantino. ? Procedure Date: 10/12/2018 ? A #: [id number] ? Primary Physician: Abdi, Camron W ? Case #: [id number] ? File Name: [id number] ? Catheterization Order Number: [id number] ? [facility] ? Final Report [place], [place] ? Patient Name: ? Hayden M. Brill ? ID#: ?[id number] ? : ?1975 ? Procedure Date: ? October 12, 2018 ?Case #: ? [id number] ? Room: ? 1 ? Case Physician: ? Camron Patton M.D. ?Start: ?08:21 ?Fellow: ? Vahe Hoffman [...] was designated as ASA ?Class IV. The [facility] clinical frailty scale is 3: Managing Well. ? Diagnostic Tests: ?Electrocardiography: ? EKG was assessed by ECG. EKG was Abnormal. EKG showed ST Deviation ? >= 0.5 mm and dynamic EKG changes. ?Medications Prior to Procedure: ? Statin and Angiotensin Converting Enzyme Inhibitor. ? Indications for Diagnostic Cath: ?The priority of the diagnostic procedure was Emergent. The indication for ?the tin can laborer visit is ACS less than or [...] dose administered prior to arrival in the tin can laborer. ?Recommend continuing clopidogrel 75 mg PO daily [...] nurse. ??Case time = 01:30. ?Dr. Camron Patton M.D. performed the coronary angiography, stent ?insertion-coronary, left heart catheterization and access site angiography. ? Camron Patton M.D. ? Electronically Signed by: Camron Patton M.D. ? Report Finalized: 10/12/2018 ??10:18 ? Report Last Ammended: 07/03/2023 ??13:13 ? Procedure Note Camron Patton II, MD - 07/04/2023 [facility] Cardiac Catheterization/Intervention Report Patient Name: Hayden Russo Procedure Date: 10/12/2018 A #: [id number] Primary Physician: Camron Ptaton Case #: [id number] File Name: [id number] Catheterization Order Number: [id number] [facility] FinalReport [place], [place] Patient Name: Hayden Russo ID#:[id number] :1975 Procedure Date: October 12, 2018 Case [...] patient was designated asASA Class IV. The [facility] clinical frailty scale is 3: Managing Well. Diagnostic Tests: Electrocardiography: EKG was assessed by ECG. EKG was Abnormal. EKG showed STDeviation >= 0.5 mm and dynamic EKG changes. Medications Prior to Procedure: Statin and Angiotensin Converting Enzyme Inhibitor. Indications for Diagnostic Cath: The priority of the diagnostic procedure was Emergent. Theindication for the tin can laborer visit is ACS less than or [...] The priority for the procedure was Emergent.The [facility] indication for the procedure was STEMI (after [...] dose administered prior to arrival in the tin can laborer. Recommend continuing clopidogrel 75 mg PO daily [...] DERABLES documented in this encounter Visit Diagnoses Not on filedocumented in this encounter Admitting Diagnoses Diagnosis Acute ST elevation myocardial infarction (STEMI) of inferior wall documented in this encounter Administered Medications Inactive Administered Medications - up to 3 most recent administrations Medication Order MAR Action Action Date Dose Rate Site acetaminophen (TYLENOL) tablet 650 mg 650 mg, Oral, EVERY 6 HOURS PRN, Starting on Mon10/12/18 at 1510, Until 10/14/18 at 1448, Headaches, [...] PRN, Starting on 10/13/18 at 0929, Until Mon10/14/18 at 1448, Low blood sugar, For BG [...] duration of the active insulin., Routine fentaNYL 50 mcg/mL multi-dose injection ONCE PRN, Starting on Mon10/12/18 at 0820, Until Mon10/12/18 at 0955, Intra-Operative (Intra-Procedure), Routine Given 10/12/2018 8:36 AM EDT 25 mcg Given 10/12/2018 8:32 AM EDT 25 mcg Given 10/12/2018 8:20 AM EDT 25 mcg glucagon (human recombinant) injection SolR 1 mg [...] = 37.5 grams., Routine heparin (porcine) injection ONCE PRN, Starting on Mon10/12/18 at 0825, Until Mon10/12/18 at 0955, Cath (Intra-Procedure), Routine Given 10/12/2018 9:32 AM EDT 5,000 Units Given 10/12/2018 8:25 AM EDT 3,000 Units insulin glargine VIAL injection 50 Units 50 Units, Subcutaneous, EVERY 24 HOURS, First dose on 10/13/18 at 1000, Until Discontinued, Routine Given 10/14/2018 10:39 AM EDT 50 Units Given 10/13/2018 10:54 AM EDT 50 Units insulin lispro (HumaLOG) VIAL injection 0-10 Units 0-10 Units, Subcutaneous, 3 TIMES DAILY WITH MEALS, First dose on 10/13/18 at 1200, Until Discontinued, MEAL ASSOCIATED Give 1 unit for every 10 grams carbohydrate. Hold if not eating, Routine Given 10/14/2018 12:20 PM ED T 6 Units Given 10/14/2018 8:26 AM EDT 3 Units Given 10/13/2018 5:45 PM EDT 7 Units insulin lispro (HumaLOG) VIAL injection 3-12 [...] on 10/13/18 at 0900, Until Discontinued, Routine Given 10/14/2018 8:26 AM EDT 10 mg Given 10/13/2018 8:34 AM EDT 10 mg metoprolol succinate (TOPROL-XL) XL tablet 100 mg 100 mg, Oral, DAILY, First dose on Mon10/14/18 at 0900, Until Discontinued, DO NOT CRUSH OR OPEN, Routine Given 10/14/2018 8:26 AM EDT 100 mg midazolam (PF) (VERSED) multi-dose injection ONCE PRN, Starting on Mon10/12/18 at 0820, Until Mon10/12/18 at 0955, Cath (Intra-Procedure), Routine Given 10/12/2018 8:36 AM EDT 1 mg Given 10/12/2018 8:32 AM EDT 1 mg Given 10/12/2018 8:20 AM EDT 1 mg nitroGLYcerin 100 mcg/mL intracoronary dilution ONCE PRN, Starting on Mon10/12/18 at 0822, Until Mon10/12/18 at 0955, Cath (Intra-Procedure), Routine Given 10/12/2018 9:24 AM EDT 100 mcg Given 10/12/2018 8:22 AM EDT 150 mcg sodium chloride 0.9 % (flush) flush 5 mL 5 mL, Intravenous, 2 TIMES DAILY, First dose on Mon10/12/18 at 1430, Until Discontinued, Routine Given 10/14/2018 9:00 AM EDT 5 mLs Given 10/13/2018 8:16 PM EDT 5 mLs Given 10/13/2018 9:00 AM EDT 5 mLs verapamil (ISOPTIN) injection ONCE PRN, Starting on Mon10/12/18 at 0822, Until Mon10/12/18 at 0955, Administer over 2 Minutes, Cath (Intra-Procedure) Given 10/12/2018 8:22 AM EDT 2.5 mg documented in this encounter Active and Recently Administered Medications Times are shown in EDT. Scheduled Medication Order 10/12/2018 10/13/2018 10/14/2018 aspirin chewable tablet 81 mg 81 mg, Oral, DAILY, First dose on Mon10/12/18 at 1500, Until Discontinued, Routine 1501 (Given - Provider: Brea Beckford RN) 0834 (Given - Provider: Brea Beckford RN) 0826 (Given - Provider: Brea Beckford RN) atorvastatin (LIPITOR) tablet 80 mg 80 mg, [...] Brea Beckford RN)1745 (Given - Provider: Brea Beckford RN) 0826 (Given - Provider: Brea Beckford RN)1220 (Given - Provider: Brea Beckford RN) insulin [...] unless specifically told to do so., Routine 162 (Given - Provider: Camron Vallejo RN)182 (Given - Provider: Brea Beckford, RN) insulin lispro (HumaLOG) VIAL injection 3-12 Units [...] so., Routine 2057 (Given - Provider: Ghazal Lopez RN)224 (Given - Provider: Ghazal Lopez RN - Comment: bg 249) 0049 (Given - Provider: Ghazal Lopez RN)0424 (Given - Provider: Ghazal Lopez RN)0833 (Given - Provider: Brea Beckford, RN) insulin [...] on Mon10/13/18 at 0900, Until Discontinued, Routine 0834 (Given [...] Brea Beckford RN)1749 (Given - Provider: Brea Beckford, DELL) 0017 (Given - Provider: Ghazal Lopez, RN) sodium chloride 0.9 % (flush) flush 5 mL 5 mL, Intravenous, 2 TIMES DAILY, First dose on Mon10/12/18 at 1430, Until Discontinued, Routine 1430 (Given - Provider: Brea Beckford, DELL)2058 (Given - Provider: Ghazal Lopez, RN) 0900 (Given - Provider: Brea Beckford, DELL)2016 (Given - Provider: Ghazal Lopez, DELL) 0900 (Given - Provider: Brea Beckford, DELL) PRN Medication Order 10/12/2018 10/13/2018 10/14/2018 acetaminophen (TYLENOL) tablet 650 mg 650 mg, Oral, EVERY 6 HOURS PRN, Starting on Mon10/12/18 at 1510, Until 10/14/18 at 1448, Headaches, Maximum dose of acetaminophen is 4000 mg from all sources in 24 hours., Routine 1801 (Given - Provider: Brea Beckford RN) 1110 (Given - Provider: Brea Beckford RN) dextrose 50% intravenous solution 25-50 mL(Linked Group 4) 25-50 mL (12.5-25 g), Intravenous, EVERY 1 HOUR PRN, Starting on Mon10/13/18 at 0929, Until 10/14/18 at 1448, Low [...] dose, Starting on Mon10/12/18 at 1407, Until Mon10/14/18 at 1448, for discomfort with PIV insertion, [...] HOURS SCHEDULED, First dose on Mon10/12/18 at 204, Until Discontinued, 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
--- OUTSIDE RECORDS SUMMARY | 2024-01-04 13:18 | XMS_ITS | Encounter Summary ---
Author Organization [facility] Address [facility] [place] [address] Care Team Providers Care Manufacturer'S Service Representative Name Role Phone Teddy Hernandez MD, Bandar Primary Care Provider [phone] Reason for Visit * Reason Comments Coronary Artery Disease Hypertension Encounter Details Date Type Department Care Team (Late st Contact Info) Description 11/27/2018 2:20 PM EDT Office Visit Cardiology at [address] [address] Karthikeyan Chu PA [facility] [place] [address] Coronary artery disease, angina presence unspecified, unspecified vessel or lesion type, unspecified whether torres martinez or transplanted heart; custodial current use of antithrombotics/antip latelets Social History Tobacco Use Types Packs/Day Years Used Date Smoking Tobacco: Former Cigarettes 1 10 Smokeless Tobacco: Never Tobacco Cessation:Counseling Given: Yes Alcohol Use Standard Drinks/Week Comments Yes 7 (1 standard drink = 0.6 oz pur e alcohol) Sex and Gender Information Value Date Recorded Sex Assigned at Not on file Gender Identity Not on file Sexual Orientation Not on file documented as of this encounter Last Filed Vital Signs Vital Sign Reading Time Taken Comments Blood Pressure 130/80 11/27/2018 2:26 PM EDT Pulse 83 11/27/2018 2:26 PM EDT Temperature - - Respiratory Rate - - Oxygen Saturation 100% 11/27/2018 2:26 PM EDT Inhaled Oxygen Concentration - - Weight 99.8 kg (220 lb) 11/27/2018 2:26 PM EDT Height 177.8 cm (5' 10) 11/27/2018 2:26 PM EDT Body Mass Index 31.57 11/27/2018 2:26 PM EDT documented in this encounter Progress Notes * Karthikeyan Chu PA - 11/27/2018 2:20 PM EDT [facility] Interventional Cardiology Reason for Visit: establish care; follow up from recent STEMI hospitalization (post-hospitalizationcheck) Referring Provider: Jose Enrique Mckeon MD [facility] [place] [id number] ?? Ambrocio HPI: Hayden Russo is a 42 y.o. male diabetic patient who wsa recently hospitalized for STEMI, having been discharged on 10/14/2018. He is insulin dependent diabetic. He also has a history of hypertension and obesity with remote tobacco use. 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 He lives withhis girlfriend. He has not really followed with any PCP. About 5 weeks ago, he was at work at the factory and noted severe arm and chest pain. He went to the local hospital and was transferred to [facility] for emergent PCI. He was diagnosed with inferior STEMI and was found to have 2 vessel disease, with nearly occluded distal RCA and LCX lesions. Both were stented. Since his STEMI hospitalization, Ambrocio has made several important lifestyle changes in an effort to be healthier. His diet has improved. He has completed refrained from alcohol, which he previously abused, and he is exercising more frequently. He still has lots of stress at work. In the last few days, he has been feeling, tired, hurting, achy. He endorses fatigue. He has not yet started cardiac rehab. No chest pain, pressure, palpitations, dyspnea, peripheral edema, syncope. No bleeding issues, no hematuria, no bloody sputum. He has not used any sublingual nitroglycerin, but he reports taking his other meds as prescribed. Stressful factors at work. Groin site with no issues. They had attempted radial access but switched with radial spasm/tortuosity they converted to femoral access. Risk Factors: former smoker, not obese, +fam Hx CAD, +HTN, +hyperlipidemia, +DM ?? Past Medical History: Past Medical History: Diagnosis Date ??? Diabetes ??? Hypertension Past Surgical History: Past Surgical History: Procedure Laterality Date ??? HERNIA REPAIR Social History: Social History Social History Narrative ??? Not on file Family History: Family History Problem Relation Age of Onset ??? Coronary Artery Disease Father 62 ??? Hypertension Father ??? Hyperlipidemia Father ??? Diabetes Maternal Grandfather ??? Diabetes Paternal Grandfather ALLERGIES: No Known Allergies ?? MEDICATIONS: ?? Current Outpatient Medications: ??? atorvastatin (LIPITOR) 80 mg Tablet, Take 1 tablet by mouth every evening., Disp: 90 tablet, Rfl: 3 ??? aspirin 81 mg Tablet, Chewable, Take 81 mg by mouth daily., Disp: 30 tablet, Rfl: 3 ??? clopidogrel (PLAVIX) 75 mg Tablet, Take 1 tablet by mouth daily., Disp: 90 tablet, Rfl: 3 ??? lisinopril (PRINIVIL;ZESTRIL) 10 mg Tablet, Take 1 tablet by mouth daily., Disp: 90 tablet, Rfl: 3 ??? metoprolol succinate (TOPROL-XL) 100 mg Tablet Sustained Release 24 hr, Take 1 tablet by mouth daily., Disp: 30 tablet, Rfl: 12 ??? nitroGLYcerin (NITROSTAT) 0.4 mg Tablet, Sublingual, Place 1 tablet under the tongue every 5 minutes as needed for Chest pain., Disp: 90 tablet, Rfl: 12 ??? blood-glucose meter (FREESTYLE) Kit, USE TO CHECK GLUCOSE THREE TIMES DAILY, Disp: , Rfl: 0 ??? ONETOUCH ULTRA BLUE TEST STRIP Strip, USE 1 STRIP TO CHECK GLUCOSE THREE TIMES DAILY ., Disp: ,Rfl: 11 ??? BASAGLAR KWIKPEN U-100 INSULIN 100 unit/mL (3 mL) pen, INJECT 50 UNITS SUBCUTANEOUSLY EVERY DAYAT BEDTIME, Disp: , Rfl: 1 ??? HUMALOG KWIKPEN 100 unit/mL Insulin Pen, INJECT 20 UNITS SUBCUTANEOUSLY UP TO THREE TIMES DAILYBEFORE MEALS, Disp: , Rfl: 3 ??? pantoprazole (PROTONIX) 20 mg Tablet, Delayed Release (E.C.), Take 1 tablet by mouth daily., Disp: 90 tablet, Rfl: 3?? ROS: CONSTITUTIONAL: No weight loss, fever, chills, weakness or fatigue. ?? HEENT: Eyes: No visual loss, blurred vision, double vision or scleral iscterus. No sinus tendernessor palpable thyromegaly. SKIN: No rashes. ?? CARDIOVASCULAR: No chest pain, chest pressure or chest discomfort. No palpitations No edema. No orthopnea or PND. No syncope RESPIRATORY: No shortness of breath, cough or sputum. No hemoptysis GASTROINTESTINAL: No anorexia, nausea, vomiting or diarrhea. No abdominal pain. No BRBPR or melena ?? GENITOURINARY: No hematuria or dysuria NEUROLOGICAL: No headache, dizziness, syncope, paralysis, ataxia, numbness or tingling in the extremities. No change in bowel or bladder control. ?? MUSCULOSKELETAL: No muscle, back pain, joint pain or stiffness. ?? HEMATOLOGIC: No anemia, bleeding or bruising. ?? LYMPHATICS: No enlarged nodes. No history of splenectomy. ?? PSYCHIATRIC: No history of depression or anxiety. ?? ENDOCRINOLOGIC: No reports of sweating, cold or heat intolerance. No polyuria or polydipsia. ?? ALLERGIES: No history of asthma, hives, eczema or rhinitis. . PHYSICAL EXAM: Constitutional: In general, alert and oriented X 3 Vitals Office Visit from 11/27/2018 in Cardiology at [facility] Weight 99.8 kg (220 lb) Height 177.8 cm (5' 10) BSA (Calculated - sq m) 2.22 sq meters BMI (Calculated) 31.56 Heart Rate 83 BP 140/80 SpO2 100 % Eyes: No scleral icterus or pale conjunctiva; no corneal arcus Ears, Nose, mouth, throat: No sinus tenderness; moist oral mucosa; no epistaxis; no visible thyromegaly Respiratory: Clear to auscultation bilaterally with good air entry bilaterally GI: No abdominal pain; + bowel sounds; no rigidity or guarding Cardiovascular: The heart rate is regular. S1 and S2 are normal and unobscured. There are no audible murmurs. Carotid upstroke is normal with no audible carotid bruits MSK: No joint deformity; No evidence of tendon xanthomas Skin: No visible rashes or bruises Neuro: Non-focal. Moves all extremities without limitation. CN nerves not examined. Psych: Mood appropriate Extremity: RLE:No LE edema LLE: No LE edema RUE: 2+ radial pulse LUE: 2+ radial pulse ?? DIAGNOSTIC TESTS: ?? TTE 10/12/2018 Diagnosis: *ST elevation (STEMI) myocardial infarction involving other coronary artery of inferior wall (I21.19) ?? BP: 140/82 ?? SUMMARY: ?? 1. Global left ventricular systolic [...] structures. 5. There is no pericardial effusion. ?? A/P: Hayden Russo is a 42 y.o. male with a history of hypertension, obesity, previous tobacco use and recent inferior STEMI with drug eluting stents PCI to the RCA and LCx emergently. Since discharge, he has been stable and pain-free. He has been back to work now and feels like he is without limitations. We spent the majority of the visit discussing the nature of his procedure and the pathophysiology of coronary artery disease and STEMI presentation. We reviewed his medications. We made a plan for 10pound weight loss by year end. In the off chance the beta blockade is contributing to his clinical milieu, we reduced the dosing and will monitor BP response. Should he not feel better, he will plan to report back and we can discuss other alternative etiologies for feeling fatigued - he had an anemia during hospitalization and he will plan to follow up with PCP regarding iron studies and any other necessary work up. We discussed that we may try to maximize dosing, and consider further anti-hyper tensives if necessary, to promote maximal guideline directed medical therapy. CAD: stable, asymptomatic. On guideline directed therapy. HTN: well controlled at present. DM: not well controlled prior to admission. I recommend follow up with endocrinology and close monitoring with PCP. ?? Plavix to be taken until 10/2019 ?? Recommendations: 1: decrease metoprolol to 25 mg daily 2: check BP, report to clinic 3: follow up 2 months for BP check 4: start cardiac rehab GLENIS Winkler 11/27/2018 8:53 PM [facility] Pager [phone] ? documented in this encounter Plan of Treatment Upcoming Encounters Date Type Department Care Team (Late st Contact Info) Description 01/31/2024 9:30 AM EST Office Visit Ne[place] [address] Donavon Frey MD [facility] [place] [address] 02/06/2024 1:00 PM EST Office Visit Cardiology at [address] [address] Adrian Tello MD [facility] [address] [place] [address] 04/25/2024 10:30 AM EST Office Visit Sleep Center at [facility] [address] [place] [address] Maria De Jesus Lange APRN [facility] [address] documented as of this encounter Visit Diagnoses Diagnosis Coronary artery disease, angina presence unspecified, unspecified vessel or lesion type, unspecified whether torres martinez or transplanted heart continuous churn buttermaker current use of antithrombotics/antiplatelets Encounter for long-term (current) use of antiplatelets/antithrombotics documented in this encounter Care Teams Manufacturer'S Service Representative Relationship Specialty Start Date End Date Bandar Espinal MD [address] [place] [address] PCP - General 01/12/10 02/26/23 documented as of this encounter
--- OUTSIDE RECORDS SUMMARY | 2024-01-04 13:18 | XMS_ITS | Encounter Summary ---
Author Organization [facility] Address [facility] [place] [address] Care Team Providers Care Rod Piler Name Role Phone Teddy Hernandez MD, [facility] Primary Care Provider [phone] Encounter Details Date Type Department Care Team (Latest Contact Info) Description 10/16/2018 Interpretation Only Cardiology at [address] [place] [phone] Genaro Laboy MD [facility] [place] [address] elevation myocardial infarction (STEMI) of inferior wall Social History Tobacco Use Types Packs/Day Years [...] AM EST Office Visit Nephrology [place] [address] Donavon Frey MD [facility] [place] [address] 02/06/2024 1:00 PM EST Office Visit Cardiology at [address] [address] Adrian Tello MD [facility] [place] [address] 04/25/2024 10:30 AM EST Office Visit Sleep Center at [facility] [address] [place] [phone] Maria De Jesus Lange APRN [facility] [place] [address] documented as of this encounter Visit Diagnoses Diagnosis Acute ST elevation myocardial infarction (STEMI) of inferior wall documented in this encounter Care Teams Rod Piler Relationship Specialty Start Date End Date Bandar Espinal MD [address] [place] [address] PCP - General 01/12/10 02/26/23 documented as of this encounter
--- OUTSIDE RECORDS SUMMARY | 2024-01-04 13:18 | XMS_ITS | Encounter Summary ---
[place] [address] Care Team Providers Care Physical Therapy Professor Name Role Phone Teddy Hernandez MD, Bandar Primary Care Provider Reason for Visit * Auth/Cert Specialty Diagnoses / Procedures Referred By Martha vasquez Referred To Contact Diagnoses Acute ST elevation myocardial infarction (STEMI) of inferior wall STEMI Procedures CARDIAC CATHETERIZATION Referral ID Status Reason Start Date Expiration Date Visits Re quested Visits Authorized [id number] 1 1 Encounter Details Date Type Department Care Team (Latest Contact Info) Description 10/12/2018 4:30 PM EDT - 10/12/2018 11:59 PM EDT Hospital Encounter Non-In[place] [phone] Discharge Disposition: Home Social History Tobacco Use [...] Chest pain. 90 tablet 12 10/14/2018 11/18/2023 insulin glargine Solution Inject 50 Units subcutaneously daily. 10 mL 12 10/14/2018 10/14/2018 atorvastatin (LIPITOR) 10 mg Tablet Take 10 mg by mouth daily. 10/14/2018 insulin glargine Solution Inject 50 Units subcutaneously nightly. 10/15/19 19 enalapril (VASOTEC) 10 mg tablet 10MG, PO, Once daily 11/07/2005 019 documented as of this encounter Plan of Treatment Upcoming Encounters Date Type Department Care Team (Late st Contact Info) Description 01/31/2024 9:30 AM EST Office Visit [place] [address] Donavon Frey MD [facility] [place] [address] 02/06/2024 1:00 PM EST Office Visit Cardiology at [address] [address] Adrian Tello MD [facility] [place] [address] 04/25/2024 10:30 AM EST Office Visit Sleep Center at [facility] [address] [place] [address] Maria De Jesus Lange, RAMONA [facility] [place] [address] documented as of this encounter Procedures Procedure Name Priority Date/Time Associated Diagnosis Comments POCT GLUCOSE Routine 10/13/2018 12:49 AM EDT POCT GLUCOSE Routine 10/12/2018 10:30 PM EDT POCT GLUCOSE Routine 10/12/2018 8:03 PM EDT POCT GLUCOSE Routine 10/12/2018 6:18 PM EDT ECHO COMPLETE W CONTRAST Routine 10/12/2018 5:[address] elevation myocardial infarction (STEMI) of inferior wall documented in this encounter Results * POCT Glucose (10/13/2018 12:49 AM EDT) Glucose, POC 188 65 - 199 mg/dL [facility] Comment: Supplemental ranges: <140 mg/dL before meals <180 mg/dL all other times of the day Blood specimen (specimen) 10/13/2018 12:49 AM EDT 10/13/2018 12:[address] Stephen Reid MD POINT OF CARE TEST Jean Claude HAQUE Performing Organization Address City/[facility]/ZIP Co de Phone Number [facility] [place] [address] * (ABNORMAL) POCT Glucose (10/12/2018 10:30 PM EDT) Glucose, POC 249(H) 65 - 199 mg/dL [facility] Comment: Supplemental ranges: <140 mg/dL before meals <180 mg/dL all other times of the day Blood specimen (specimen) 10/12/2018 10:30 PM EDT 10/12/2018 10:[address] Stephen Reid MD POINT OF CARE TEST [place] [facility] [place] [address] * (ABNORMAL) POCT Glucose (10/12/2018 8:03 PM EDT) Glucose, POC 350(H) 65 - 199 mg/dL [facility] Comment: Supplemental ranges: <140 mg/dL before meals <180 mg/dL all other times of the day Blood specimen (specimen) 10/12/2018 8:03 PM EDT 10/12/2018 8:[address] Stephen Reid MD POINT OF CARE TEST [place] Performing Organization Address [facility] Co de Phone Number [facility] [place] [address] * (ABNORMAL) POCT Glucose (10/12/2018 6:18 PM EDT) Glucose, POC 292(H) 65 - 199 mg/dL [facility] Comment: Supplemental ranges: <140 mg/dL before meals <180 mg/dL all other times of the day Blood specimen (specimen) 10/12/2018 6:18 PM EDT 10/12/2018 6:[address] Stephen Reid MD POINT OF CARE TEST [place] Performing Organization Address [facility] Co de Phone Number [facility] [place] [address] documented in this encounter Visit Diagnoses Not on filedocumented in this encounter Administered Medications Inactive Administered Medications - up to 3 most recent administrations Medication Order MAR Action Action Date Dose Rate Site perflutren protein-A microspheres (OPTISON) 0.22 mg/mL injection 2 mL 2 mL, Intravenous, ONCE PRN, 1 dose, Starting on Mon10/12/18 at 1734, Until Mon10/12/18 at 1700, PRN, Routine Given 10/12/2018 5:00 PM EDT 2 mLs documented in this encounter Care Teams Physical Therapy Professor Relationship Specialty Start Date End Date Bandar Espinal MD [address] [place] [address] PCP - General 01/12/10 02/26/23 documented as of this encounter
--- OUTSIDE RECORDS SUMMARY | 2024-01-04 13:18 | XMS_ITS | Encounter Summary ---
[place] [address] Care Team Providers Care Spin Tank Tender Name Role Phone Unavailable Primary Care Provider Unavailabl e Reason for Referral * Consultation (Routine) - Canceled Specialty Diagnoses / Procedures Referred By Mratha vasquez Referred To Contact Nephrology Diagnoses Disorder of kidney and ureter, unspecified Bandar Hahn MD [address] [place] [address] [place] [address] [facility] [address] [place] [phone] Referral ID Status Reason Start Date Expiration Date Visits Requested Visits Authorized [id number] Canceled Consult, Test & Treat PCP Updated and/or Approved 02/08/2023 02/08/2024 6 6 Encounter Details Date Type Department Care Team (Latest Contact Info) Description 02/27/2023 Transcribe Orders eDH Incoming Referrals [phone] Unknown None Disorder of kidney and ureter, unspecified Social History Tobacco Use Types Packs/Day Years [...] AM EST Office Visit Neph[place] [address] Donavon Frey MD [facility] [place] [address] 02/06/2024 1:00 PM EST Office Visit Cardiology at [address] [address] Adrian Tello MD [facility] [place] [address] 04/25/2024 10:30 AM EST Office Visit Sleep Center at [address] [phone] Maria De Jesus Lange APRN [facility] [place] [address] Scheduled Referrals Name Type Priority Associated Diagnoses Order Schedule Referral to Gastroenterology Outpatient Referral Routine Disorder of kidney and ureter, unspecified Ordered: 02/27/2023 documented as of this encounter Visit Diagnoses Diagnosis Disorder of kidney and ureter, unspecified documented in this encounter
--- OUTSIDE RECORDS SUMMARY | 2024-01-04 13:18 | XMS_ITS | Encounter Summary ---
Author Organization [facility] Address [facility] [place] [address] Care Team Providers Care Garden Tractor Mechanic Name Role Phone Teddy Hernandez MD, Bandar Primary Care Provider [phone] Reason for Visit * Reason Onset Date Comments Medication Refill 12/06/2018 Encounter Details Date Type Department Care Team (Late st Contact Info) Description 12/06/2018 Refill Cardiology at [address] [address] Karthikeyan Chu PA [facility] [address] Medication Refill Social History Tobacco Use Types [...] Telephone Encounter - Karen Landrum RN - 12/06/2018 12:11 PM EDT Request for PA for pantoprazole received and completed. Rx insurance denying this and proposed omeprazole 20 mg capsule once daily as alternative. Checked with GLENIS Arnold who is agreeable to the substitution. New Rx prepped and forwarded to him for approval Call to patient to inform him of above change. He was not at home at the time of call - so message left informing him of this substitution. Provided my name and phone number in case he has questions. Karen Landrum RN, BSN Ambulatory Cardiology Department documented in this encounter Plan of Treatment Upcoming Encounters Date Type Department Care Team (Late st Contact Info) Description 01/31/2024 9:30 AM EST Office Visit Nephrology [place] [address] Donavon Frey MD [facility] [place] [address] 02/06/2024 1:00 PM EST Office Visit Cardiology at [address] [address] Adrian Tello MD [facility] [place] [address] 04/25/2024 10:30 AM EST Office Visit Sleep Center at [address] [place] [phone] Maria De Jesus Lange APRN [facility] [place] [address] documented as of this encounter Visit Diagnoses Diagnosis Acute ST elevation myocardial infarction (STEMI) of inferior wall- Primary documented in this encounter Care Teams Garden Tractor Mechanic Relationship Specialty Start Date End Date Bandar Espinal MD [address] [place] [address] PCP - General 01/12/10 02/26/23 documented as of this encounter
--- OUTSIDE RECORDS SUMMARY | 2024-01-04 13:18 | XMS_ITS | Encounter Summary ---
[place] [address] Care Team Providers Care Windows Systems Architect Name Role Phone Bandar Hahn MD Primary Care Provider [phone] Reason for Referral * Consultation (Routine) - Canceled Specialty Diagnoses / Procedures Referred By Martha vasquez Referred To Contact Nephrology Diagnoses Disorder of kidney and ureter, unspecified renal insufficiancy Bandar Hahn MD [address] [place] [address] [place] [address] [facility] [address] [place] [phone] Referral ID Status Reason Start Date Expiration Date Visits Requested Visits Authorized [id number] Canceled Consult, Test & Treat PCP Updated and/or Approved 05/02/2023 05/01/2024 6 6 Encounter Details Date Type Department Care Team (Late st Contact Info) Description 05/02/2023 Transcribe Orders eDH Incoming Referrals [phone] Bnadar Hahn MD [address] [place] [address] [address] [place], [place] [id number] Disorder of kidney and ureter, unspecified Social [...] AM EST Office Visit [place] [address] Donavon Frey MD [facility] [place] [address] 02/06/2024 1:00 PM EST Office Visit Cardiology at [address] [address] Adrian Tello MD [facility] [place] [address] 04/25/2024 10:30 AM EST Office Visit Sleep Center at [address] [address] Maria De Jesus Lange APRN [facility] [place] [address] Scheduled Referrals Name Type Priority Associated Diagnoses Order Schedule Referral to Gastroenterology Outpatient Referral Routine Disorder of kidney and ureter, unspecified Ordered: 05/02/2023 documented as of this encounter Visit Diagnoses Diagnosis Disorder of kidney and ureter, unspecified documented in this encounter Care Teams Windows Systems Architect Relationship 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
--- OUTSIDE RECORDS SUMMARY | 2024-01-04 13:18 | XMS_ITS | Encounter Summary ---
Author Organization [facility] Address [facility] [place] [address] Care Team Providers Care Pleat Taper Name Role Phone Bandar Hahn MD Primary Care Provider [phone] Encounter Details Date Type Department Care Team (Late st Contact Info) Description 06/04/2023 Telephone Cardiology at [address] [address] Antoni Gonzalez MD [facility] [place] [address] Social History Tobacco Use Types Packs/Day Years Used Date Smoking Tobacco: Former Cigarettes 1 10 Smokeless Tobacco: Never Alcohol Use Standard Drinks/Week Comments Yes 7 (1 standard drink = 0.6 oz pur e alcohol) [facility] Utilities Answer Date Recorded In the past 12 months has [employer], gas, oil, or water [employer] threatened to shut off services in your [...] encounter Miscellaneous Notes * Telephone Encounter - Antoni Gonzalez MD - 06/04/2023 2:17 PM EDT Telephone Triage Note Initial Contact Date: 06/04/23 Initial Contact Time: 1413 Patient Location: [place] [facility] Presenting Symptoms per OSH: 47 year old male, former smoker, history of HTN, HLD, type 2 diabetes, STEMI (2019) s/p PCI to distal RCA and LCx, who was in his usual state of health until yesterday around 12 or 1 pm (unclear precise time), when he developed constant mid-sternal chest tightness at rest, of severity 8/10, associated with SOB, nausea, and diaphoresis. No syncope, orthopnea, PND, palpitations, or edema. Symptoms persisted over time, so he presented to OSH emergency room for further evaluation. Vitals - T 36.4, BP 170/94 (124/75 after SL nitro x 1), HR 110, saturating well on room air. Exam - noted to be pale;no signs of heart failure. EKG showed sinus tachycardia, inferior Q waves and ST elevations. CXR negative. No labs available at the time of our conversation. Was loaded with ASA 324 mg, clopidogrel 300 mg, and started on heparin gtt. Pertinent Diagnostic Findings: See above OSH Interventions: See above Plan: -Discussed with interventional attending Dr. Azul Rowley. -Given the potential delay from ground transportation, additionally recommended lysis with TNK. -Launch as inferior STEMI to [facility] laboratory technician. Above recommendations/plans are based on my conversation with the referring provider. I have not personally interviewed or examined this patient. Antoni Gonzalez MD Humidifier Maintenance Worker documented in this encounter Plan of Treatment Upcoming Encounters Date Type Department Care Team (Late st Contact Info) Description 01/31/2024 9:30 AM EST Office Visit Neph[place] [address] Donavon Frey MD [facility] [place] [address] 02/06/2024 1:00 PM EST Office Visit Cardiology at [address] [address] Adrian Tello MD [facility] [place] [address] 04/25/2024 10:30 AM EST Office Visit Sleep Center at [facility] [address] [place] [address] Maria De Jesus Lange APRN [facility] [place] [address] documented as of this encounter Visit Diagnoses Not on filedocumented in this encounter Care Teams Pleat Taper Relationship 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
--- OUTSIDE RECORDS SUMMARY | 2024-01-04 13:19 | XMS_ITS | Encounter Summary ---
Author Organization [place] [address] Care Team Providers Care Museum Preparator Name Role Phone Teddy Hernandez MD, [facility] Primary Care Provider [phone] Encounter Details Date Type Department Care Team (Late st Contact Info) Description 10/12/2018 External [place] [phone] Social History Tobacco Use Types Packs/Day Years [...] AM EST Office Visit Nephrology [place] [phone] Donavon Frey MD [facility] [address] 02/06/2024 1:00 PM EST Office Visit Cardiology at [address] [phone] Adrian Tello MD [facility] [place] [address] 04/25/2024 10:30 AM EST Office Visit Sleep Center at [address] [place] [phone] Maria De Jesus Lange APRN [facility] [place] [address] documented as of this encounter Procedures Procedure Name Priority Date/Time Associated Diagnosis Comments ECG SCAN Routine 10/12/2018 documented in this encounter Results * Scan Doc: ECG (10/12/2018) Historical Provider MEDIA MGR SCAN EX T ORDR/RSLT documented in this encounter Visit Diagnoses Not on filedocumented in this encounter Care Teams Museum Preparator Relationship Specialty Start Date End Date Bandar Espinal MD [address] [place] [address] PCP - General 01/12/10 02/26/23 documented as of this encounter
--- OUTSIDE RECORDS SUMMARY | 2024-01-04 13:19 | XMS_ITS | Encounter Summary ---
Author Organization [facility] Address [facility] [place] [address] Care Team Providers Care Securities Lending Trader Name Role Phone Teddy Hernandez MD, [facility] Primary Care Provider [phone] Encounter Details Date Type Department Care Team (Late st Contact Info) Description 10/12/2018 [place] [address] Jose Manuel Lopes MD [facility] [place] [address] Social History Tobacco Use Types Packs/Day Years [...] encounter Miscellaneous Notes * Telephone Encounter - Jose Manuel Lopes MD - 10/12/2018 4:35 AM EDT Telephone Triage Note Initial contact date: 10/12/2018 Initial contact time: 4:35 AM Referring provider: Dr. Edwards Patient location: [facility] Past medical history: HTN HLD Obesity Diabetes GERD CC: Chest pain History Yesterday at work developed R arm discomfort and tingling, unbearable central chest pain at 11:30PMwith significant SOB and sweating. Presented to [facility] at 4AM Pertinent diagnostic findings: Vitals: BP 182/92 HR 100 RR 16 SaO2 97% on RA EKG: NSR, RENATE in II, III, aVF, STD in aVL Glu 490, rest of his labs are pending Plan: Patient received: ASA 324mg Plavix 600mg Heparin gtt 50mg TNK @ 4:34AM Nitro gtt Will transfer for PCI. Jose Manuel Lopes MD 10/12/2018 documented in this encounter Plan of Treatment Upcoming Encounters Date Type Department Care Team (Late st Contact Info) Description 01/31/2024 9:30 AM EST Office Visit Neph[place] [address] Donavon Frey MD [facility] [place] [address] 02/06/2024 1:00 PM EST Office Visit Cardiology at [address] [address] Adrian Tello MD [facility] [place] [address] 04/25/2024 10:30 AM EST Office Visit Sleep Center at [facility] [address] [place] [address] Maria De Jesus Lange APRN [facility] [place] [address] documented as of this encounter Visit Diagnoses Not on filedocumented in this encounter Care Teams Securities Lending Trader Relationship Specialty Start Date End Date Bandar Espinal MD [address] [place] [address] PCP - General 01/12/10 02/26/23 documented as of this encounter
[2024-01-04 15:41] LABS: ALT 14 U/L (16-63); AST 9 U/L (15-37); Albumin 2.7 g/dL (3.4-5.0); Alkaline Phosphatase 108 U/L (46-116); Anion Gap 8.2 mmol/L (3-11); BUN 41 mg/dL (7-18); Bilirubin, Total 0.35 mg/dL (0.2-1.0); CO2 31.8 mmol/L (21.0-32.0); Calcium 8.7 mg/dL (8.5-10.1); Chloride 103 mmol/L (98-107); Estimated GFR 25.15 (mL/min/1.73m2); Glucose 115 mg/dL (74-106); Magnesium 1.9 mg/dL (1.8-2.4); Potassium 4.4 mmol/L (3.5-5.1); Sodium 143 mmol/L (136-145)
== END 2024-01-04 13:03 | disposition home or self-care (01) ==
LOC: NCHCN 13:02
PROVIDERS: PCP Family Medicine; Visit Provider Student in an Organized Health Care Education/Training Program
DX: E87.5 Hyperkalemia (principal)
CPT/HCPCS: 80053; 83735

== ENCOUNTER 2024-04-15 10:30 | Outpatient (RCR) | payer BC, SELFPAY ==
--- NOTE | 2024-04-15 10:30 | RT.EKG_ITS ---
APPROVED REPORT Exam: Resting ECG Reason for Exam: [facility]: O HR:82 bpm ECG Measurements Heart Rate 82 AXIS DE 189 P 71 QRSd 128 QRS 77 QT 392 T 15 QTc 458 Conclusion Sinus rhythm...normal P axis, V-rate 50- 99 Right bundle branch block...QRSd>120, terminal axis(90,270) Inferior infarct, old...Q >35mS, II III aVF
== END 2024-04-19 23:59 | disposition home or self-care (01) ==
LOC: CR 10:30
PROVIDERS: PCP Family Medicine; Visit Provider Internal Medicine Cardiovascular Disease
DX: I25.810 Atherosclerosis of coronary artery bypass graft(s) without angina pectoris (principal); Z51.89 Encounter for other specified aftercare; I25.10 Atherosclerotic heart disease of native coronary artery without angina pectoris
CPT/HCPCS: S9472

== ENCOUNTER 2024-05-13 15:34 | Outpatient (REF) | payer BC, SELFPAY ==
[2024-05-13 21:52] LABS: Abs Immature Grans 0.04 10^3/uL (0.0-0.06); Absolute Basophil Count 0.08 10^3/uL (0.0-0.2); Absolute Eosinophil Count 0.14 10^3/uL (0.0-0.7); Absolute Lymphocyte Count 1.69 10^3/uL (1.2-3.4); Absolute Monocyte Count 0.59 10^3/uL (0.1-0.8); Absolute Neutrophil Count 5.98 10^3/uL (1.2-6.7); Basophils % 0.9 %; Eosinophils % 1.6 %; HCT 36.6 % (40.0-50.0); HGB 10.8 g/dL (13.5-17.5); Immature Grans % 0.5 %; Lymphocytes % 19.8 %; MCH 21.8 pg (27.0-33.0); MCHC 29.5 % (32.0-36.0); MCV 74 fL (80-95); MPV 12.1 fL (8.0-11.0); Monocytes % 6.9 %; Neutrophils % 70.3 %; RBC 4.95 10^6/uL (4.36-5.78); RDW 19.4 % (11.8-14.1); RDW-SD 49.2 fL; WBC 8.52 10^3/uL (4.4-10.8)
[2024-05-13 21:58] LABS: ESR 75 mm/hr (0-15)
[2024-05-13 22:25] LABS: Acanthocytes 2+; Hypochromasia 2+; Microcytosis 2+; Platelet Count 300 10^3/uL (130-400)
[2024-05-13 22:27] LABS: ALT 23 U/L (16-63); AST 17 U/L (15-37); Albumin 3.8 g/dL (3.4-5.0); Alkaline Phosphatase 116 U/L (46-116); Anion Gap 9.6 mmol/L (3-11); BUN 76 mg/dL (7-18); Bilirubin, Total 0.4 mg/dL (0.2-1.0); CO2 29.4 mmol/L (21.0-32.0); Calcium 9.6 mg/dL (8.5-10.1); Chloride 105 mmol/L (98-107); Estimated GFR 18.36 (mL/min/1.73m2); Glucose 80 mg/dL (74-106); Potassium 5.2 mmol/L (3.5-5.1); Sodium 144 mmol/L (136-145); Total Protein 7.9 g/dL (6.4-8.2)
[2024-05-13 22:35] LABS: CREATININE 3.9 mg/dL (0.70-1.30)
[2024-05-14 09:04] LABS: Iron 74 ug/dL (65-175); Total Iron Binding Capacity 320 ug/dL (250-450); Transferrin Sat 23 % (20-55)
[2024-05-14 09:18] LABS: Ferritin 754 ng/mL (26-388)
[2024-05-21 00:19] LABS: Pregabalin (Lyrica) 4.9 mcg/mL (2.0-5.0)
== END 2024-05-13 15:35 | disposition home or self-care (01) ==
LOC: NCHCN 15:34
PROVIDERS: PCP Student in an Organized Health Care Education/Training Program; Visit Provider Student in an Organized Health Care Education/Training Program
DX: E11.40 Type 2 diabetes mellitus with diabetic neuropathy, unspecified (principal); R10.11 Right upper quadrant pain
CPT/HCPCS: 80053; 85652; 82542; 82728; 83540; 83550; 85025

== ENCOUNTER 2024-08-12 11:00 | Outpatient (RCR) | payer BC, SELFPAY ==
--- NOTE | 2024-08-12 11:15 | RT.EKG_ITS ---
APPROVED REPORT Exam: Resting ECG Reason for Exam: cardiac rehab intake Patient Location: O HR:75 bpm ECG Measurements Heart Rate 75 AXIS HI 200 P 51 QRSd 130 QRS 72 QT 454 T 14 QTc 508 Conclusion Sinus rhythm...normal P axis, V-rate 50- 99 Right bundle branch block...QRSd>120, terminal axis(90,270) Inferior infarct, old...Q >35mS, II III aVF
== END 2024-08-19 23:59 | disposition home or self-care (01) ==
LOC: CR 11:00
PROVIDERS: PCP Student in an Organized Health Care Education/Training Program; Visit Provider Internal Medicine Cardiovascular Disease
DX: I25.810 Atherosclerosis of coronary artery bypass graft(s) without angina pectoris (principal); Z51.89 Encounter for other specified aftercare
CPT/HCPCS: S9472

== ENCOUNTER 2024-08-14 12:33 | Outpatient (CLI) | payer BC, SELFPAY ==
--- NOTE | 2024-08-14 | DI.RAD_ITS ---
Exam(s) XR LUMBAR SPINE COMPLETE EXAM: XR LUMBAR SPINE COMPLETE CLINICAL HISTORY: LOW BACK PAIN, M54.50,H/O ESRD,FLUID RETENTION, INCREASING WT. TECHNIQUE: 2D digital imaging was performed. Five views. COMPARISON: No exams were available for comparison FINDINGS: BONES: No fracture or destructive lesion. Vertebral body heights are maintained. Minimal endplate osteophytes . Mild facet hypertrophy identified . DISKS: Intervertebral disc spaces are maintained. ALIGNMENT: Lumbar spinal alignment is within normal limits. SOFT TISSUE: Normal the aorta is calcified but normal in diameter. IMPRESSION: Mild degenerative changes of the lumbar spine. DATA REPOSITORY: RADIATION DOSE DELIVERED:
== END 2024-08-14 12:53 ==
PROVIDERS: PCP Student in an Organized Health Care Education/Training Program; Visit Provider Student in an Organized Health Care Education/Training Program
DX: M54.50 Low back pain, unspecified (principal)
CPT/HCPCS: 72110

== ENCOUNTER 2024-10-29 10:56 | Outpatient (CLI) | payer BC, SELFPAY ==
[2024-10-29] MEDS: Inhaler, Assist Device 1 EACH MC (14:53)
[2024-10-29] MEDS: Levalbuterol HFA 15 GM INH 4 PUFF IH (14:54)
--- NOTE | 2024-11-04 06:23 | W.PFT ---
Date of service: 10/29/24 Time of Service: 13:31 Pulmonary Function Test Result Indications: Dyspnea Impression 1. Good patient effort was noted. ATS standards for reproducibility were met. 2. No obstructive lung disease was seen on spirometry 3. Following the administration of a bronchodilator there was not a significant response 4. TLC is reduced at 52% predicted, consistent with moderate restrictive lung disease 5. DLCO was 44%, consistent with a severe defect in alveolar gas exchange Conclusion: - moderate restriction with reduced DLCO. Underlying interstitial lung disease should be considered
== END 2024-10-29 10:57 | disposition home or self-care (01) ==
LOC: RT 10:56
PROVIDERS: PCP Student in an Organized Health Care Education/Training Program; Visit Provider Student in an Organized Health Care Education/Training Program
DX: R06.09 Other forms of dyspnea (principal); R06.83 Snoring
CPT/HCPCS: 94060; 94726; 94729

== ENCOUNTER 2025-02-19 13:41 | Emergency (ER) | payer BC, SELFPAY ==
[2025-02-19] VITALS (15 sets, daily range): BP systolic 88–133; BP diastolic 31–64; PULSE 80–96; RESP 10–24; TEMP 36.5; O2SAT 88–99
--- NOTE | 2025-02-19 13:30 | RT.EKG_ITS ---
APPROVED REPORT Exam: Resting ECG Reason for Exam: dizziness Patient Location: E HR:88 bpm ECG Measurements Heart Rate 88 AXIS [place] 195 P 30 QRSd 115 QRS 52 QT 403 T 24 QTc 489 Conclusion Sinus rhythm...normal P axis, V-rate 60- 99 Incomplete right bundle branch block...QRSd >112, terminal axis(90,270) Inferior infarct, old...Q >35mS, II III aVF
--- NOTE | 2025-02-19 13:30 | RT.EKG_ITS ---
APPROVED REPORT Exam: Resting ECG Reason for Exam: Dizziness Patient Location: E HR:86 bpm ECG Measurements Heart Rate 86 AXIS VT 211 P 37 QRSd 116 QRS 51 QT 418 T 25 QTc 501 Conclusion Sinus rhythm...normal P axis, V-rate 60- 99 Prolonged VT interval...VT >210, V-rate 50- 90 Incomplete right bundle branch block...QRSd >112, terminal axis(90,270) Inferior infarct, old...Q >35mS, II III aVF Prolonged QT interval...QTc >500mS
[2025-02-19 14:02] LABS: Abs Immature Grans 0.08 10^3/uL (0.0-0.06); HCT 33.8 % (40.0-50.0); HGB 10.0 g/dL (13.5-17.5); Immature Grans % 0.8 %; MCH 23.3 pg (27.0-33.0); MCHC 29.6 % (32.0-36.0); MCV 79 fL (80-95); MPV 10.5 fL (8.0-11.0); Platelet Count 305 10^3/uL (130-400); RBC 4.30 10^6/uL (4.36-5.78); RDW 19.4 % (11.8-14.1); RDW-SD 53.8 fL; WBC 9.69 10^3/uL (4.4-10.8)
[2025-02-19 14:19] LABS: ALT 51 U/L (10-49); AST 29 U/L (<34); Albumin 5.0 g/dL (3.2-5.0); Alkaline Phosphatase 112 U/L (46-116); Anion Gap 5.7 mmol/L (3-11); BUN 49 mg/dL (9-23); Bilirubin, Total 0.4 mg/dL (0.2-1.2); CO2 32.3 mmol/L (20.0-31.0); Calcium 8.5 mg/dL (8.3-10.6); Chloride 99 mmol/L (98-107); Glucose 147 mg/dL (74-106); Magnesium 2.1 mg/dL (1.6-2.6); Potassium 4.0 mmol/L (3.5-5.1); Sodium 137 mmol/L (136-145); Total Protein 8.6 g/dL (5.7-8.2)
--- NOTE | 2025-02-19 14:50 | W.ED.GENAD ---
Discharge Plan Disposition Patient Disposition: Home Condition: Stable Discharge Details Clinical Impression: Dizziness, Acute dehydration Primary Care Provider: Minesh Wagner ED Provider: Hans Hamilton Home Meds and New Rx's Prescriptions: Continued citalopram 40 MG tablet 40 mg PO DAILY clopidogrel 75 mg tablet 1 tab PO DAILY Patient Comments: TAKE 1 TABLET BY MOUTH ONCE DAILY insulin lispro 100 unit/mL insulin pen 20 - 50 unit SUBCUT .PER MEAL Patient Comments: INJECT 20 TO 50 UNITS SUBCUTANEOUSLY DIRECTED UP TO THREE TIMES A DAY BEFORE MEALS. KEEP APPOINTMENT FOR FURTHER REFILLS. Levemir FlexTouch U100 Insulin 100 unit/mL (3 mL) insulin pen 30 unit SUBCUT .QHS Patient Comments: INJECT 30 UNITS SUBCUTANEOUSLY AT BEDTIME atorvastatin 40 mg tablet 40 mg PO ONCE Patient Comments: TAKE 1 TABLET BY MOUTH ONCE DAILY AT NIGHT venlafaxine 75 mg capsule,extended release 24hr 75 mg PO DAILY Patient Comments: TAKE 1 CAPSULE BY MOUTH ONCE DAILY ropinirole 1 mg tablet 1 mg PO DAILY Patient Comments: TAKE 1 TABLET BY MOUTH UP TO THREE TIMES DAILY NEEDED FOR RESTLESS LEGS bumetanide 2 mg tablet 6 mg PO BID Patient Comments: TAKE 3 TABLETS BY MOUTH TWICE DAILY Cristal-Madisyn 0.8 mg tablet 1 tab PO DAILY Patient Comments: TAKE 1 TABLET BY MOUTH ONCE DAILY pregabalin 25 mg capsule 50 mg PO BID Patient Comments: TAKE 2 CAPSULES BY MOUTH IN THE MORNING AND 3 AT NIGHT Rx Instructions: 50 mg orally qAM; 75 mg orally qPM insulin glargine [Lantus Solostar U-100 Insulin] 100 unit/mL (3 mL) insulin pen 65 unit SUBCUT QPM Patient Comments: INJECT 65 UNITS SUBCUTANEOUSLY AT BEDTIME , INCREASE BY 2 UNITS EVERY 3 DAYS IF BLOOD GLUCOSE AVERAGE IS GREATER THAN 130 . MAX DAILY DOSE IS 80 UNITS Discharge Instructions Instructions: Dizziness, Adult ED Additional Instructions: Please maintain adequate oral fluid hydration. Please follow-up with your echocardiographer and primary care physician. Call today to schedule follow-up. Return to the ER immediately for any worsening or new concerning symptoms. Stand Alone Forms: Portal Information Referrals: Minesh Wagner [Primary Care Provider, Medicine] [facility] General Mode of arrival: EMS. Date/Time Provider Initiated Documentation: 02/19/25 13:47. Limitations to Documentation: no limitations. Information obtained by: patient and EMS. HPI Narrative: HISTORY OF PRESENT ILLNESS 49-year-old male with end-stage renal disease, on dialysis, presenting with dizziness. Experienced significant dizziness and lightheadedness post dialysis, with a drop in blood pressure and blood sugar levels noted. Unable to stand or walk for 2 minutes after having full dialysis. Believes he may be dehydrated, lost about 4 pounds during dialysis, typical course for him. Patient notes occasional mild dizziness at home, but nothing as severe. He states he drove to dialysis and was feeling fine today. Blood sugar dropped from 196 to 81 during dialysis. On insulin therapy (lispro), adjusts based on dietary intake, did not administer insulin today. Reports restless legs disrupting sleep last night and had difficulty sleeping. No recent chest pain, fever, numbness, or weakness. No JULES. No nausea. On dialysis since 11/2023, twice a week. Missed one session due to stomach bug causing diarrhea, no vomiting or pain, currently recovering. Reports frequent urination, unsure about swelling. On bumetanide, takes furosemide on non-dialysis days. Related Data Home Medications ?Medication ?Instructions ?Recorded ?Confirmed citalopram 40 mg tablet 40 mg PO DAILY 03/06/14 02/19/25 clopidogrel 75 mg tablet 1 tab PO DAILY 09/07/21 02/19/25 insulin detemir U-100 100 unit/mL 30 unit subcut .QHS 09/07/21 02/19/25 (3 mL) subcutaneous pen (Levemir FlexTouch U-100 Insulin) insulin lispro 100 unit/mL 20 - 50 unit subcut .PER MEAL 09/07/21 02/19/25 subcutaneous pen atorvastatin 40 mg tablet 40 mg PO ONCE 02/19/25 02/19/25 bumetanide 2 mg tablet 6 mg PO BID 02/19/25 02/19/25 insulin glargine 100 unit/mL (3 65 unit subcut QPM 02/19/25 02/19/25 mL) subcutaneous pen (Lantus Solostar U-100 Insulin) pregabalin 25 mg capsule 50 mg PO BID 02/19/25 02/19/25 ropinirole 1 mg tablet 1 mg PO DAILY 02/19/25 02/19/25 venlafaxine 75 mg capsule,extended 75 mg PO DAILY 02/19/25 02/19/25 release 24 hr vitamin B complex-vitamin C-folic 1 tab PO DAILY 02/19/25 02/19/25 acid 0.8 mg tablet (Cristal-Madisyn) Allergies Allergy/AdvReac Type Severity Reaction Status Date / Time No Known Allergies Allergy Unverified 02/19/25 13:46 General Stated Complaint: Dizzy/Sync KRISTA: 3 Exam Const General: cooperative and no acute distress HENMT Mouth: mucous membranes dry Eyes Conjunctivae: normal conjunctivae Sclera: normal sclerae Neck Neck: trachea midline and supple Resp Auscultation: clear to auscultation bilaterally, no rales, no rhonchi and no wheezes Cardio Rate: regular rate and not tachycardic Rhythm: regular rhythm GI Palpation: soft, not firm, no guarding, no masses, not rigid and nontender Skin General skin exam: no rashes or lesions noted Neuro General: patient alert, patient awake, patient oriented x3 and tone normal Extrem General: edema Laterality: bilateral (1+ pitting up shins) Psych Appearance: grossly normal Mental Status: mental status grossly normal Speech and Movement: speech and movement normal Course Vital Signs Vital signs: Vital Signs Temperature 36.5 C 02/19/25 13:41 Pulse 89 02/19/25 13:41 Respiratory Rate 13 02/19/25 13:41 Blood Pressure 99/60 L 02/19/25 13:41 Pulse Oximetry 91 L 02/19/25 13:41 Temperature 36.5 C 02/19/25 13:41 Temperature Source Oral 02/19/25 13:41 Pulse 91 H 02/19/25 14:50 Pulse 92 H 02/19/25 14:50 Respiratory Rate 12 02/19/25 14:50 Respiratory Effort Normal 02/19/25 14:00 Respiratory Depth Normal 02/19/25 14:00 Respiratory Pattern Normal 02/19/25 14:00 Blood Pressure 119/60 02/19/25 14:16 Blood Pressure Mean 77 02/19/25 14:16 Blood Pressure Position Sitting 02/19/25 13:41 Pulse Oximetry 92 02/19/25 14:50 Oxygen Delivery Method Room Air 02/19/25 13:41 Oxygen Flow Rate 0 02/19/25 13:41 Pain Level 0 02/19/25 13:41 Lab/Test Results Lab/Test Results: Laboratory Tests Range/Units 02/19/25 13:54 WBC (4.4-10.8) 10^3/uL 9.69 RBC (4.36-5.78) 10^6/uL 4.30 L Hgb (13.5-17.5) g/dL 10.0 L Hct (40.0-50.0) % 33.8 L MCV (80-95) fL 79 L MCH (27.0-33.0) pg 23.3 L MCHC (32.0-36.0) % 29.6 L RDW (11.8-14.1) % 19.4 H Plt Count (130-400) 10^3/uL 305 MPV (8.0-11.0) fL 10.5 Immature Gran % % 0.8 Neutrophils % % 84.0 Lymphocytes % % 7.9 Monocytes % % 5.8 Eosinophils % % 0.9 Basophils % % 0.6 Nucleated RBC % (0.0-0.3) % 0.0 Absolute Neutrophils (1.2-6.7) 10^3/uL 8.13 H Absolute Lymphocytes (1.2-3.4) 10^3/uL 0.77 L Absolute Monocytes (0.1-0.8) 10^3/uL 0.56 Absolute Eosinophils (0.0-0.7) 10^3/uL 0.09 Absolute Basophils (0.0-0.2) 10^3/uL 0.06 Sodium (136-145) mmol/L 137 Potassium (3.5-5.1) mmol/L 4.0 Chloride (98-107) mmol/L 99 Carbon Dioxide (20.0-31.0) mmol/L 32.3 H Anion Gap (3-11) mmol/L 5.7 BUN (9-23) mg/dL 49 H Creatinine (0.73-1.18) mg/dL 3.13 H Est GFR (CKD-EPI 2020) (mL/min/1.73m2) 21.45 Glucose (74-106) mg/dL 147 H Calcium (8.3-10.6) mg/dL 8.5 Magnesium (1.6-2.6) mg/dL 2.1 Total Bilirubin (0.2-1.2) mg/dL 0.4 AST (<34) U/L 29 ALT (10-49) U/L 51 H Alkaline Phosphatase (46-116) U/L 112 Total Protein (5.7-8.2) g/dL 8.6 H Albumin (3.2-5.0) g/dL 5.0 Medical Decision Making ASSESSMENT AND PLAN 49-year-old male with end-stage renal disease, on dialysis, presenting with dizziness and lightheadedness post-dialysis. Differential Diagnosis: - Hypoglycemia - Hypotension - Dehydration ED Course: - Blood glucose checked - wnl - Oral rehydration with juice administered - EKG was reviewed and interpreted by me: Initial was mislabeled, sinus rhythm 88 bpm, incomplete right bundle branch block, please see report. Second EKG appropriately labeled with his name, sinus rhythm 86 bpm prolonged NH interval 211, please see report. - Patient feeling much better after oral rehydration, requesting discharge. Patient ambulated without any difficulty. Results reviewed with the patient. Patient stable. Usual and customary discharge instructions were reviewed. Final Assessment: Significant dizziness and lightheadedness post-dialysis, likely due to hypoglycemia, hypotension, and dehydration. Blood glucose checked, oral rehydration with juice administered, EKG normal. Clinical Impression: - Hypoglycemia - Hypotension - Dehydration This document was written with the assistance of JANAE Nunes. The patient consented to its use. Lab Data Lab results reviewed: Yes I reviewed the patient's lab results. Labs: Laboratory Tests Range/Units 02/19/25 13:54 WBC (4.4-10.8) 10^3/uL 9.69 RBC (4.36-5.78) 10^6/uL 4.30 L Hgb (13.5-17.5) g/dL 10.0 L Hct (40.0-50.0) % 33.8 L MCV (80-95) fL 79 L MCH (27.0-33.0) pg 23.3 L MCHC (32.0-36.0) % 29.6 L RDW (11.8-14.1) % 19.4 H Plt Count (130-400) 10^3/uL 305 MPV (8.0-11.0) fL 10.5 Immature Gran % % 0.8 Neutrophils % % 84.0 Lymphocytes % % 7.9 Monocytes % % 5.8 Eosinophils % % 0.9 Basophils % % 0.6 Nucleated RBC % (0.0-0.3) % 0.0 Absolute Neutrophils (1.2-6.7) 10^3/uL 8.13 H Absolute Lymphocytes (1.2-3.4) 10^3/uL 0.77 L Absolute Monocytes (0.1-0.8) 10^3/uL 0.56 Absolute Eosinophils (0.0-0.7) 10^3/uL 0.09 Absolute Basophils (0.0-0.2) 10^3/uL 0.06 Sodium (136-145) mmol/L 137 Potassium (3.5-5.1) mmol/L 4.0 Chloride (98-107) mmol/L 99 Carbon Dioxide (20.0-31.0) mmol/L 32.3 H Anion Gap (3-11) mmol/L 5.7 BUN (9-23) mg/dL 49 H Creatinine (0.73-1.18) mg/dL 3.13 H Est GFR (CKD-EPI 2020) (mL/min/1.73m2) 21.45 Glucose (74-106) mg/dL 147 H Calcium (8.3-10.6) mg/dL 8.5 Magnesium (1.6-2.6) mg/dL 2.1 Total Bilirubin (0.2-1.2) mg/dL 0.4 AST (<34) U/L 29 ALT (10-49) U/L 51 H Alkaline Phosphatase (46-116) U/L 112 Total Protein (5.7-8.2) g/dL 8.6 H Albumin (3.2-5.0) g/dL 5.0 PFSH All Active Problems (Updated 02/19/25 @ 15:19 by Hans Hamilton MD) Acute dehydration (Acute) Dizziness (Acute) Social History Smoking/Tobacco Use Status: Former Tobacco Use Smoking risk assessment performed?: Yes Drug use: Never
== END 2025-02-19 16:01 | disposition home or self-care (01) ==
PROVIDERS: Emergency Provider Student in an Organized Health Care Education/Training Program; PCP Student in an Organized Health Care Education/Training Program
DX: R42 Dizziness and giddiness; Z99.2 Dependence on renal dialysis; E86.0 Dehydration
CPT/HCPCS: 99283; 99284; 36415; 36416; 82962; 80053; 93005; 83735; 85025; 93010